=== PATIENT | female | born 1950 | race Caucasian/White ===

== ENCOUNTER 2022-10-03 08:50 | Outpatient (OUT) | payer MEDICARE, OTHER, SELFPAY ==
--- NOTE | 2022-10-03 08:47 | XR_ITS ---
The [address] [address] Patient Name: SIA ALEXANDER MRN: [id number] date: 1950 Sex: F Assigned Patient Location: [facility] Current Patient Location: [facility] Accession/Order Number: [id number] Exam Date: 10/03/2022 08:55 Report Date: 10/03/2022 11:16 At the request of: BASHIR DANIELLE Procedure: XR foot RT min 3V PROCEDURE: XR foot RT min 3V DATE: 10/03/2022 7:55 AM CDT COMPARISONS: 06/27/2022 CLINICAL INDICATION: RIGHT FOOT PAIN FINDINGS: There is no evidence of fractures or other acute osseous abnormalities. There is evidence of what appears to be complete healing of the fifth proximal metatarsal fracture. A pin again longitudinally traverses this healed fracture site. There is moderate first metatarsal phalangeal degenerative change. There are small spur off the posterior inferior os calcis. There is small spur off the posterior os calcis at the attachment of the Achilles. These findings are stable. XR/XR foot RT min 3V IMPRESSION: Stable postop changes. There is evidence on today's images that suggest the surgically fixed proximal fifth metatarsal fracture is completely healed. . No evidence of acute osseous abnormalities. Electronically authenticated by: PLACIDO LUNA Date: 10/03/2022 11:16
== END 2022-10-03 08:51 | disposition home or self-care (01) ==
LOC: RAD 08:50
PROVIDERS: PCP Internal Medicine; Visit Provider Podiatrist Foot & Ankle Surgery
DX: S92.351D Displaced fracture of fifth metatarsal bone, right foot, subsequent encounter for fracture with routine healing (principal)
CPT/HCPCS: 73630

== ENCOUNTER 2022-10-09 06:41 | Outpatient (OUT) | payer MEDICARE, OTHER, SELFPAY ==
--- NOTE | 2022-10-09 06:47 | MR_ITS ---
The [address] [address] Patient Name: SIA ALEXANDER MRN: [id number] date: 1950 Sex: F Assigned Patient Location: MRI Current Patient Location: MRI Accession/Order Number: [id number] Exam Date: 10/09/2022 07:00 Report Date: 10/09/2022 11:20 At the request of: BASHIR DANIELLE Procedure: MR ankle RT wo con MR ankle RT wo con CLINICAL HISTORY: Chronic right foot pain after prior fracture. Peroneal Tendonitis COMPARISON: 10/03/2022. MR TECHNIQUE: Multiplanar multiecho MRI of the right ankle, hindfoot, midfoot is obtained without IV contrast with axial, sagittal, coronal images. T1 weighted and fluid sensitive images are included. FINDINGS: No fracture or dislocation throughout the [id number] except for susceptibility artifact over the fifth metatarsal related to remote internal fixation. Soft tissues unremarkable. Talar dome and tibial plafond are intact. Mild degenerative change of the talonavicular joint. Achilles tendon is intact and normal thickness. Ankle flexor and extensor tendons are intact. Trace PTT tenosynovial fluid. Peroneal tendons appear intact although with trace tenosynovitis. Low intermediate grade partial-thickness injury at the talar attachment of the ATFL. CFL is intact. The ATFL is intact. Syndesmotic ligaments are intact. Deltoid ligaments are intact except for remote low-grade partial injury to the deep deltoid with tiny internal calcification. Plantar fascial is intact and normal thickness. Plantar foot muscles with mild diffuse atrophy but no significant edema. MR/MR ankle RT wo con IMPRESSION: Remote low-grade immediate grade partial thickness injury at the ATFL and deep deltoid. Peroneal tendons are intact with mild tenosynovitis. Also trace PTT tenosynovitis. Mild iterative change of the talonavicular joint. No acute bony process. Remote internal fixation at the fifth metatarsal with associated susceptibility artifact. Electronically authenticated by: АНДРЕЙ SANTOS Date: 10/09/2022 11:20
== END 2022-10-09 06:42 | disposition home or self-care (01) ==
LOC: MRI 06:42
PROVIDERS: PCP Internal Medicine; Visit Provider Podiatrist Foot & Ankle Surgery
DX: M76.71 Peroneal tendinitis, right leg (principal); M76.821 Posterior tibial tendinitis, right leg; S93.431A Sprain of tibiofibular ligament of right ankle, initial encounter; S93.421A Sprain of deltoid ligament of right ankle, initial encounter; Z96.7 Presence of other bone and tendon implants; M25.9 Joint disorder, unspecified; X58.XXXA Exposure to other specified factors, initial encounter
CPT/HCPCS: 73721

== ENCOUNTER 2022-10-31 07:47 | Outpatient (RCR) | payer MEDICARE, OTHER, SELFPAY | END 2022-12-14 16:26 | disposition home or self-care (01) | LOC: PT 07:47 | PROVIDERS: PCP Internal Medicine; Visit Provider Podiatrist Foot & Ankle Surgery | DX: S92.351D Displaced fracture of fifth metatarsal bone, right foot, subsequent encounter for fracture with routine healing (principal); M25.571 Pain in right ankle and joints of right foot | CPT/HCPCS: 97010; 97110; 97112; 97140; 97162; 97530; G0283 ==

== ENCOUNTER 2022-12-23 21:14 | Emergency (ER) | payer MEDICARE, OTHER, SELFPAY ==
[2022-12-23 21:27] VITALS: BP 148/84; PULSE 90; RESP 18; TEMP 36.7; O2SAT 99; BMI 20.3
--- NOTE | 2022-12-23 22:20 | XR_ITS ---
The [address] [address] Patient Name: SIA ALEXANDER MRN: [id number] date: 1950 Sex: F Assigned Patient Location: ER Current Patient Location: ER Accession/Order Number: [id number] Exam Date: 12/23/2022 22:30 Report Date: 12/23/2022 22:57 At the request of: MICA WONG Procedure: XR chest 1V EXAMINATION: XR chest 1V HISTORY: Cough COMPARISON: None. TECHNIQUE: Portable chest FINDINGS: The lung parenchyma is free of consolidation or infiltrate. No pneumothorax or pleural effusion. The cardiac, mediastinal and hilar contours are normal. The visualized osseous structures exhibit no gross abnormality. XR/XR chest 1V IMPRESSION: No acute cardiopulmonary abnormality. Electronically authenticated by: CAMPOS TREADWELL Date: 12/23/2022 22:57
--- NOTE | 2022-12-23 22:20 | ED.URI1 ---
HPI - URI/Sore Throat General Chief Complaint: Upper Respiratory Infection Stated Complaint: ALLERGIES Time Seen by Provider: 12/23/22 21:55 History of Present Illness HPI Narrative: 72-year-old female presents for a cough that she's had for a few months. She's been on prednisone twice, prescribed by her PCP, and it seemed to help. She was also on Zithromax twice. She has not had a fever or hemoptysis and her cough is nonproductive. She is on Lotensin for blood pressure. Related Data Home Medications Medication Instructions Recorded Confirmed albuterol sulfate 90 mcg/actuation inhalation 12/23/22 aerosol inhaler atorvastatin 10 mg tablet mg 12/23/22 benazepril 10 mg tablet mg 12/23/22 famotidine 20 mg tablet mg 12/23/22 fluticasone furoate 200 inhalation 12/23/22 mcg-vilanterol 25 mcg/dose inhalation powder (Breo Ellipta) levothyroxine 100 mcg tablet mcg 12/23/22 loratadine 5 mg-pseudoephedrine ER tab PO 12/23/22 120 mg tablet,extended release,12hr (Claritin-D 12 Hour) pantoprazole 40 mg tablet,delayed mg PO 12/23/22 release Allergies Allergy/AdvReac Type Severity Reaction Status Date / Time amoxicillin Allergy Verified 12/23/22 21:31 Sulfa (Sulfonamide Allergy Verified 12/23/22 21:31 Antibiotics) IVP Allergy Uncoded 12/23/22 21:31 Review of Systems ROS Narrative A ten point review of systems is negative except as noted above. PFSH PFS Social History Smoking status: Never smoker Exam Narrative Exam Narrative: Nurses note and vital signs reviewed and patient is not hypoxic. General: The patient appears well and in no apparent distress. Patient is resting comfortably on cart. her voice is slightly hoarse. Skin: Warm, dry, no pallor noted. There is no rash noted. Head: Normocephalic, atraumatic Eye: Normal conjunctiva, no drainage Ears, Nose, Mouth, and Throat: oral mucosa is moist. Nares patent. Mouth without vesicles. no pharyngeal erythema or exudate Cardiovascular: Regular Rate and Rhythm Respiratory: Patient is in no distress, no accessory muscle use, lungs are clear to auscultation, no wheezing, rales or rhonchi Back: non-tender GI: soft and nontender Musculoskeletal: The patient has no evidence of calf tenderness, no pitting edema, symmetrical pulses noted bilaterally Neurological: A&O, normal speech Psychiatric: Cooperative Constitutional Vital Signs, click to edit/add: Last Vital Signs Temp 98.0 F 12/23/22 21:27 Pulse 90 12/23/22 21:27 Resp 18 12/23/22 21:27 BP 148/84 H 12/23/22 21:27 Pulse Ox 99 12/23/22 21:27 O2 Del Method Room Air 12/23/22 21:27 Course Vital Signs Vital signs: Vital Signs Temperature 98.0 F 12/23/22 21:27 Pulse Rate 90 12/23/22 21:27 Respiratory Rate 18 12/23/22 21:27 Blood Pressure 148/84 H 12/23/22 21:27 Pulse Oximetry 99 12/23/22 21:27 Oxygen Delivery Method Room Air 12/23/22 21:27 Temperature 98.0 F 12/23/22 21:27 Pulse Rate 90 12/23/22 21:27 Respiratory Rate 18 12/23/22 21:27 Blood Pressure 148/84 H 12/23/22 21:27 Pulse Oximetry 99 12/23/22 21:27 Oxygen Delivery Method Room Air 12/23/22 21:27 MDM - URI/Sore Throat MDM Narrative Medical decision making narrative: the patient has had this cough for months my clinical impression is that it's due to the LUIS ALBERTO inhibitor, benazepril, that she has been on. She has done some reading and actually stop that medication about four days ago. Her blood pressure has been checked at home and it's been normal. She is very frustrated with the situation and feels like her PCP is not listening to her. She is being referred to cardiology for follow-up regarding her blood pressure. Treatment diagnosis and follow-up were discussed with the patient. Differential Diagnosis Differential diagnosis: Likely upper respiratory infection and other (medication side effect) Imaging Data Chest x-ray: Radiologist's impression: Procedure: XR chest 1V EXAMINATION: XR chest 1V HISTORY: Cough COMPARISON: None. TECHNIQUE: Portable chest FINDINGS: The lung parenchyma is free of consolidation or infiltrate. No pneumothorax or pleural effusion. The cardiac, mediastinal and hilar contours are normal. The visualized osseous structures exhibit no gross abnormality. IMPRESSION: No acute cardiopulmonary abnormality. Electronically authenticated by: CAMPOS TREADWELL Date: 12/23/2022 22:57 Discharge Plan Discharge Chief Complaint: Upper Respiratory Infection Clinical Impression: Chronic cough, LUIS ALBERTO-inhibitor cough Patient Disposition: Home, Self-Care Time of Disposition Decision: 23:12 Condition: Good Mode of Transportation: Private Vehicle Prescriptions / Home Meds: No Action atorvastatin 10 mg tablet levothyroxine 100 mcg tablet famotidine 20 mg tablet pantoprazole 40 mg tablet,delayed release (DR/EC) PO Claritin-D 12 Hour 5-120 mg tablet extended release 12 hr PO albuterol sulfate 90 mcg/actuation HFA aerosol inhaler INHALATION benazepril 10 mg tablet fluticasone furoate-vilanterol [Breo Ellipta] 200-25 mcg/dose blister with device INHALATION Instructions: Acetaminophen (By mouth), Chronic Cough (ED) Additional Instructions: F/U with Dr Inman Stand Alone Forms: Portal Instructions Referrals: Andrea Wu DO [Primary Care Provider] - 1 week
[2022-12-23] MEDS: DEXAMETHASONE SODIUM PHOSPHATE 10 MG/ML VIAL IM (23:25)
== END 2022-12-23 23:29 | disposition home or self-care (01) ==
PROVIDERS: Emergency Provider Emergency Medicine; PCP Internal Medicine
DX: R05.3 Chronic cough (principal); T46.5X5A Adverse effect of other antihypertensive drugs, initial encounter; Z79.899 Other long term (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 therapy
CPT/HCPCS: 71045; 96372; 99284; J1100

== ENCOUNTER 2023-01-30 06:46 | Outpatient (OUT) | payer MEDICARE, OTHER, SELFPAY ==
--- NOTE | 2023-01-30 | MM_ITS ---
Patient Name: SIA ALEXANDER MR#: [id number] : 1950 Exam Date: 01/30/2023 Ordering Doctor: DR Andrea Wu D.O. RADIOLOGY REPORT PROCEDURE: MM TOMOSYNTHESIS SCREENING BI COMPARISON: MG MAMM SCREEN 3D ALLEGRA CAD, 01/25/2021. MG MAMM SCREEN 3D ALLEGRA CAD, 01/29/2022. INDICATIONS: Screening mammography Calculator Name NCI Breast Cancer Risk Assessment Tool 5 Year Breast Cancer Risk 6.50% Lifetime Breast Cancer Risk 18.00% Personal Breast Cancer No Personal Ovarian Cancer No Treatments None Family Cancers Sister with breast cancer at age 42; Aunt-maternal with breast cancer at age 38; Aunt-maternal with breast cancer at age ~55; Aunt-maternal with breast cancer at age ~56; Mother with pancreatic cancer at age 52; Sister with breast cancer at age 59. LOCATION: [facility] BREAST COMPOSITION: Scattered areas fibroglandular density. FINDINGS: DIAGNOSTIC CATEGORY 2--BENIGN FINDING. NO CHANGE FROM COMPARISON. Scattered benign-appearing calcifications are present. Scattered benign-appearing lymph nodes are present. RIGHT BREAST: No significant suspicious finding. LEFT BREAST: No significant suspicious finding. RECOMMENDATIONS: ROUTINE MAMMOGRAM AND CLINICAL EVALUATION IN 12 MONTHS. PLEASE NOTE: A NORMAL MAMMOGRAM DOES NOT EXCLUDE THE POSSIBILITY OF BREAST CANCER. A CLINICALLY SUSPICIOUS PALPABLE LUMP SHOULD BE BIOPSIED. Dictated by: Chepe Erazo MD on 01/30/2023 at 10:01 Approved by: Chepe Erazo MD on 01/30/2023 at 10:09
[2023-01-30 06:58] LABS: Basophils Percent Auto 0.5 % (0.2-2.0); Eosinophils Absolute Auto 0.5 10^3/uL (0.0-0.7); Eosinophils Percent Auto 5.5 % (0.9-7.0); Hematocrit 32.9 % (36.0-48.0); Immature Granulocytes Abs Auto 0.03 10^3/uL (0.00-0.03); Immature Granulocytes Pct Auto 0.4 % (0.0-0.5); Lymphocytes Percent Auto 24.1 % (20.5-60.0); Mean Corpuscular HGB Conc 30.4 g/dL (29.9-35.2); Mean Corpuscular Hemoglobin 25.3 pg (26.7-34.0); Mean Corpuscular Volume 83.1 fL (81.0-99.0); Mean Platelet Volume 9.3 fL (9.5-13.5); Monocytes Absolute Auto 0.8 10^3/uL (0.3-0.8); Monocytes Percent Auto 9.5 % (1.7-12.0); Platelet Count 383 10^3/uL (150-450); Red Blood Count 3.96 10^6/uL (4.20-5.40); Red Cell Distribution Width 15.4 % (11.0-15.0); White Blood Count 8.3 10^3/uL (4.0-11.0)
[2023-01-30 08:17] LABS: Alanine Aminotransferase 22 U/L (14-59); Anion Gap 11.9; BUN Creatinine Ratio 23.8; Carbon Dioxide 30.7 mmol/L (21.0-32.0); Chloride 104 mmol/L (98-107); Chol HDL Ratio 2.8; Cholesterol 169 mg/dL (<=200); Estimated GFR (African America >60 (>=60); Estimated GFR (Non-African Ame >60 (>=60); Glucose 87 mg/dL (74-106); HDL Cholesterol 60 mg/dL (40-60); LDL Cholesterol Calculated 88.4 mg/dL; Potassium 3.6 mmol/L (3.5-5.1); Sodium 143 mmol/L (136-145); Thyroid Stimulating Hormone 1.123 uIU/mL (0.358-3.740); Triglycerides 103 mg/dL (<=150); VLDL CHOLESTEROL 20.6 mg/dL
== END 2023-01-30 06:47 | disposition home or self-care (01) ==
LOC: MAMMO 06:46
PROVIDERS: PCP Internal Medicine; Visit Provider Internal Medicine
DX: Z12.31 Encounter for screening mammogram for malignant neoplasm of breast (principal); Z78.0 Asymptomatic menopausal state; I10 Essential (primary) hypertension; Z80.3 Family history of malignant neoplasm of breast; Z80.8 Family history of malignant neoplasm of other organs or systems
CPT/HCPCS: 36415; 77063; 77067; 80048; 80061; 82306; 84443; 84460; 85025

== ENCOUNTER 2023-02-05 07:52 | Outpatient (OUT) | payer MEDICARE, OTHER, SELFPAY ==
--- NOTE | 2023-02-05 07:55 | XR_ITS ---
[address] [address] Patient Name: SIA ALEXANDER MRN: [id number] date: 1950 Sex: F Assigned Patient Location: [facility] Current Patient Location: RAD Accession/Order Number: [id number] Exam Date: 02/05/2023 08:00 Report Date: 02/05/2023 08:40 At the request of: CHUNG GOLDEN Procedure: XR DEXA axial skeleton EXAMINATION: XR DEXA axial skeleton HISTORY: Menopause Z78.0 COMPARISON: DEXA bone densitometry 01/25/2021 TECHNIQUE: Dual-energy X-ray absorptiometry (DXA) was performed. FINDINGS: SPINE ANALYSIS: Average bone mineral density is 1.092 g/cm2. T-score (standard deviation relative to young adult mean): -0.7 . +3.7% change since prior study. HIP ANALYSIS: Lowest bone mineral density is within the left femoral neck, 0.844 g/cm2. T-score (standard deviation relative to young adult mean): -1.4 . +3.3% change since prior study. XR/XR DEXA axial skeleton IMPRESSION: World [employer] Classification: Osteopenia - Moderate Fracture Risk Electronically authenticated by: JEROME ESPINOSA Date: 02/05/2023 08:40
== END 2023-02-05 07:53 | disposition home or self-care (01) ==
LOC: RAD 07:52
PROVIDERS: PCP Internal Medicine; Visit Provider Internal Medicine
DX: Z78.0 Asymptomatic menopausal state (principal); M85.80 Other specified disorders of bone density and structure, unspecified site
CPT/HCPCS: 77080

== ENCOUNTER 2023-03-08 06:30 | Outpatient (OUT) | payer MEDICARE, OTHER, SELFPAY ==
--- OUTSIDE RECORDS SUMMARY | 2023-03-08 06:33 | XMS_ITS | CCD ---
Author Name Unknown Address [address] [place] [address] Organization [facility] Care Team Providers Care Type Disk Quality Control Supervisor Name Role Phone Espinoza Botello Unavailable ANDREA WU Primary Care Physician [phone] Andrea Wu Unavailable Luma Chirinos Unavailable PABLO, DR CAMPOS Nixon Consulting Unavailable BRYCE, DR WILKES Primary Care Unavailable KIKI CROWELL Attending Unavailable KIKI CROWELL Admitting Unavailable KIKI CROWELL Consulting Unavailable JESÚS, DR JEROME Winkler Consulting Unavailable AZUCENA ., DR MONZON Attending Unavailable HAY ., DR MONZON Admitting Unavailable BALL, DR WILKES Primary Care Unavailable AZUCENA ., DR MONZON Consulting Unavailable ESPINOZA BOTELLO Consulting Unavailable BASHIR DANIELLE Consulting Unavailable BRYCE, DR WILKES Primary Care Unavailable BASHIR DANIELLE Attending Unavailable BASHIR DANIELLE Admitting Unavailable MARGARITO MAS Consulting Unavailable JESÚS, DR JEROME Winkler Consulting Unavailable BRYCE, DR WILKES Primary Care Unavailable BASHIR DANIELLE Attending Unavailable BASHIR DANIELLE Admitting Unavailable BASHIR DANIELLE Consulting Unavailable GILBERT DUKE Consulting Unavailable SYED PAZ Consulting Unavailable RILEY HURTADO Consulting Unavailable JESÚS, DR JEROME Winkler Consulting Unavailable BRYCE, DR WILKES Primary Care Unavailable BASHIR DANIELLE Attending Unavailable BASHIR DANIELLE Admitting Unavailable BASHIR DANIELLE Consulting Unavailable BRYCE, DR WILKES Consulting Unavailable ESPINOZA BOTELLO Primary Care Unavailable BRYCE, DR WILKES Attending Unavailable BRYCE, DR WILKES Admitting Unavailable YOVANA COTTRELL Consulting Unavailable BRYCE, DR WILKES Consulting Unavailable BRYCE, DR WILKES Primary Care Unavailable BRYCE, DR WILKES Attending Unavailable BRYCE, DR WILKES Admitting Unavailable PABLO, DR CAMPOS Nixon Consulting Unavailable BRYCE, DR WILKES Primary Care Unavailable KIKI CROWELL Attending Unavailable KIKI CROWELL Admitting Unavailable JESÚS, DR JEROME Winkler Consulting Unavailable BRYCE, DR WILKES Primary Care Unavailable BASHIR DANIELLE Attending Unavailable BASHIR DANIELLE Admitting Unavailable BASHIR DANIELLE Consulting Unavailable DR JEROME ESPINOSA Consulting Unavailable BRYCE, DR WILKES Primary Care Unavailable KIKI CROWELL Attending Unavailable KIKI CROWELL Admitting Unavailable KIKI CROWELL Consulting Unavailable WebsterShannan mcdonough Unavailable Asuncion Buchanan Attending Unavailable Asuncion Buchanan Attending Unavailable Asuncion Buchanan Attending Unavailable Allergies Allergy Classification Reported Allergen(s) Allergy Type Date of Onset Reaction(s) Facility (19 sources) Amoxicillin Drug Allergy 10-22-19 19 Rash [facility] (18 sources) Sulfacetamide / Sulfur Drug Allergy Unknown [employer] [facility] [employer] Other (18 sources) idp dye Propensity to adverse reactions Unknown [facility] [employer] Other (1 source) Sulfonamides (Antibiotic) Allergy to substance 10-22-19 19 Unknown Reaction [facility] (1 source) wasp venom Allergy to substance 10-22-19 19 Anaphylaxis [facility] (1 source) bee venom protein (honey bee) Allergy to substance 10-22-19 19 Anaphylaxis [facility] (1 source) Iodinated Contrast Media Allergy to substance 10-22-19 19 Anaphylaxis [facility] (3 sources) Bee/Wasp/Ant venom; Translations: [Bee Stings] Drug allergy Dyspnea (finding), Weal (disorder) [facility] (3 sources) Contrast media; Translations: [contrast media (iodine-based)] Drug allergy Dyspnea (finding), Weal (disorder) [facility] (12 sources) Iodine; Translations: [iodine] Drug Allergy Unknown (qualifier value) [facility] (3 sources) Penicillin; Translations: [penicillin] Drug Allergy Eruption of skin (disorder) [facility] (3 sources) Sulfonamides (Antibiotic); Translations: [sulfa drugs] Drug allergy Angioedema (disorder) [facility] (1 source) bee venom Drug allergy (disorder) [facility] (1 source) Iodine (And Iodine Containting Drugs) Drug allergy (disorder) 01-19-20 15 [facility] (1 source) Penicillins Drug allergy (disorder) [facility] (1 source) Sulfonamides (Antibiotic) Drug allergy (disorder) 03-18-18 56 [facility] (2 sources) Iodine / Sodium Iodide Drug Allergy Unknown [employer] [employer] Other (11 sources) Substance with penicillin structure and antibacterial mechanism of action (substance) Drug allergy Unknown [facility] Other (11 sources) Substance with sulfonamide structure and antibacterial mechanism of action (substance) Drug allergy Unknown [facility] Other (2 sources) Allergies Reconciled Propensity to adverse reactions Unknown [facility] Other (2 sources) patient allergy list reviewed by nurse or physicia Propensity to adverse reactions 09-25-19 Comment:Done [facility] Other Medications Current Medications Medication Drug Class(es) Dates Sig (Normalized) Sig (Original) 0.4 ML cyclosporine 0.5 MG/ML Ophthalmic Suspension [Restasis] (1 source) Start: 09-04-2019 take 1 drop(s) into the eye(s) twice daily Restasis 0.05% ophthalmic emulsion 1 drop(s), Eye-Both, BID, Refill(s) 0 Start Date: 09/04/19 Status: Ordered 30 ACTUAT fluticasone furoate 0.2 MG/ACTUAT / umeclidinium 0.0625 MG/ACTUAT / vilanterol 0.025 MG/ACTUAT Dry Powder Inhaler [Trelegy] (1 source) Start: 02-18-2023 take 1 puff(s) by inhalation once daily Trelegy Ellipta 200-62.5-25 MCG/ACT 1 puff Inhalation Once a day for 30 days Feb, Active acetaminophen 250 mg / aspirin 250 mg / caffeine 65 mg oral tablet (1 source) Platelet Aggregation Inhibitor, Nonsteroidal Anti-inflammatory Drug, Central Nervous System Stimulant, Methylxanthine Start: 10-21-2018 Aspirin-Acetamin ophen-Caffeine (Pain-Off) 250-250-65 mg Tablet Active 2 TAB PO As Directed October 21, 2018 12:00am [id number] 200 actuat albuterol 0.09 mg/actuat metered dose inhaler (6 sources) beta2-Adrenergic Agonist Start: 09-02-2019 take 2 puff(s) by inhalation every four hours ProAir HFA 90 mcg/inh inhalation aerosol 2 puff(s), Inhalation, q4hr Shortness of breath or wheezing, Refill(s) 0 Start Date: 09/02/19 Status: Ordered Start: 10-21-2018 Albuterol Sulf ate Active 2 PUFF INHALATION As Directed October 21, 2018 12:00am Albuterol Sulfat e HFA 108 (90 Base) MCG/ACT USE 2 INHALATIONS ORALLY EVERY 4 HOURS NEEDED FORCOUGH OR SHORTNESS OF BREATH for 90 Active take 2 puff(s) by in halation every four hours as needed ProAir HFA 108 (90 Base) MCG/ACT 2 puffs as needed Inhalation every 4 hrs Active alendronic acid 70 mg oral tablet (20 sources) Bisphosphonate Start: 10-21-2018 take 1 tablet by mouth every week Fosamax 70 mg Tab 70 mg = 1 tab(s), Oral, qWeek, Refills(s) 0 Start Date: 09/02/19 Status: Ordered take 1 tablet by mouth once carolyn y Alendronate Sodium 70 MG 1 tablet 30 minutes before the first food, beverage or medicine of the day with plain water Orally weekly for 90 days Active amLODIPine 5 mg oral tablet (9 sources) Dihydropyridine Calcium Channel Bebe Start: 02-20-2023 amLODIPine 5 mg Tab Refills(s) 0 Start Date: 02/20/23 Status: Ordered aspirin 770 mg / caffeine 60 mg / orphenadrine citrate 50 mg oral tablet (1 source) Platelet Aggregation Inhibitor, Nonsteroidal Anti-inflammatory Drug, Muscle Relaxant, Central Nervous System Stimulant, Methylxanthine Start: 10-21-2018 take 0.5 tablet by mouth four times daily Orphenadrine-Asa- Caffeine Active 0.5 TAB PO Four times daily October 21, 2018 12:00am Astepro 205.5 MCG/SPRAY (1 source) Start: 02-18-2023 take 2 spray(s) nasal route twice daily Astepro 205.5 MCG/SPRAY 2 sprays in each nostril Nasally bid for 30 days Feb, Active atorvastatin 10 mg oral tablet (20 sources) HMG-CoA Reductase Inhibitor Start: 10-21-2018 take 1 tablet by mouth once daily atorvastatin 10 mg Tab 10 mg = 1 tab(s), Oral, Daily, Refills(s) 0 Start Date: 09/02/19 Status: Ordered azelastine hydrochloride 0.206 mg/actuat metered dose nasal spray (2 sources) Histamine-1 Receptor Antagonist Start: 02-18-2023 take 2 spray(s) nasal route twice daily Astepro 205.5 MCG/SPRAY 2 sprays in each nostril Nasally bid for 30 days Feb, Active benazepril hydrochloride 10 mg oral tablet (12 sources) Angiotensin Converting Enzyme Inhibitor Start: 10-21-2018 take 1 tablet by mouth once daily benazepril 10 mg Tab 10 mg = 1 tab(s), Oral, Daily, Refills(s) 0 Start Date: 09/02/19 Status: Ordered Breo Ellipta 200 mcg-25 mcg/inh inhalation powder (1 source) Start: 09-02-2019 take 1 puff(s) by inhalation once daily Breo Ellipta 200 mcg-25 mcg/inh inhalation powder 1 puff(s), Inhalation, Daily, Refill(s) 0 Start Date: 09/02/19 Status: Ordered calcium carbonate 600 mg chewable tablet (3 sources) Start: 09-04-2019 take 1 tablet by mouth three times daily calcium carbonate 600 mg oral tablet, chewable 600 mg = 1 tab(s), Chewed, TID, Refills(s) 0 Start Date: 09/04/19 Status: Ordered Start: 10-21-2018 Calcium Carbon ate (Tums) 300 mg (750 mg) Tablet,Chewable Active 2 TAB PO As Directed October 21, 2018 12:00am Start: 10-21-2018 take 1 tablet by grzegorz th three times daily Calcium Carbonate (Calcium 500) 500 mg calcium (1,250 mg) Tablet,Chewable Active 500 MG PO Three times daily October 21, 2018 12:00am codeine phosphate 2 mg/ml / guaiFENesin 20 mg/ml oral solution (8 sources) Opioid Agonist Start: 02-25-2023 take 10 mL by mouth every six hours as needed for cough guaiFENesin-Codeine 100-10 MG/5ML 10 mL Orally every 6 hours as needed for cough for 7 days Feb, Active Start: 12-26-2022 take 10 mL by mouth every six hours as needed for cough guaiFENesin-Codeine 100-10 MG/5ML 10 mL Orally every 6 hours as needed for cough for 10 days Dec, Not-Taking cycloSPORINE 0.5 mg/ml ophthalmic suspension (19 sources) Calcineurin Inhibitor Immunosuppressant Start: 10-21-2018 take 1 drop(s) into the eye(s) twice daily Cyclosporine (Restasis) 0.05 % Dropperette Active 1 DROPS OPHTHALMIC Twice daily October 21, 2018 12:00am take 1 drop(s) into the eye(s) twice daily Restasis 0.05 % 1 drop into affected eye Ophthalmic Twice a day Active Epipen (20 sources) alpha-Adrenergic Agonist, beta-Adrenergic Agonist, Catecholamine Start: 09-04-2019 inject 0.3 mg by intramuscular injection once EpiPen 2-Giovani 0.3 mg, IntraMuscular, Once, Refills(s) 0 Start Date: 09/04/19 Status: Ordered EPINEPHrine 0.3 MG/0.3ML Injection Active EPINEPHrine 0.3 MG/0.3ML Injection Active estradiol 0.1 mg/ml vaginal cream (4 sources) Estrogen Start: 02-20-2023 estradiol 0.1 mg/g Vag Crm See Instructions, 42.5 gm, Refill(s) 0, apply pea sized amount to urethra 2x/wk, [facility], 158, cm, 02/20/23 8:48:00 EST, Height/Length Dosing, 68.5, kg, 02/20/23 8:48:00 EST, Weight Dosing Start Date: 02/20/23 Status: Ordered Start: 04-13-2021 estradiol 0.1 mg/g vaginal cream See Instructions, Apply pea sized amount to external urethral 3 times a week for 2 weeks (at bedtime), then twice a week after for maintenance, # 42.5 gm, Refills(s) 1, [facility] [address], [address], cm, 04/13/21 9:47:00 EST, Height/Length Do... Start Date: 04/13/21 Status: Ordered Start: 10-21-2018 End: 10-21-2018 Estradiol (Yuvafem) 10 mcg T ablet Active 10 MCG TABLET Twice a Week October 21, 2018 12:00am famotidine 20 mg oral tablet (9 sources) Histamine-2 Receptor Antagonist Start: 02-20-2023 take 1 mg by mouth twice daily famotidine 20 mg Tab mg tab(s), Oral, BID, Refills(s) 0 Start Date: 02/20/23 Status: Ordered take 1 tablet by grzegorz th once daily at bedtime Famotidine 20 MG TAKE 1 TABLET AT BEDTIM E Orally Once a day for 90 days Active fluticasone propionate 0.05 mg/actuat metered dose nasal spray (20 sources) Corticosteroid Start: 09-02-2019 fluticasone 0. 05 mg/inh Nasal [place] 2 spray(s), Nasal, Daily, Refill(s) 0 Start Date: 09/02/19 Status: Ordered Start: 10-21-2018 Fluticasone Pr opionate Active 2 SPRAY INTRANASAL Daily October 21, 2018 12:00am take 2 spray(s) nasa l route once daily Fluticasone Propionate 50 MCG/ACT 2 sprays each nostril) Nasally Once a day Active take 2 spray(s) nasa l route once daily Fluticasone Propionate 50 MCG/ACT 2 sprays each nostril) Nasally Once a day Active Fluticasone Prop ionate Active 30 actuat fluticasone furoate 0.1 mg/actuat / umeclidinium 0.0625 mg/actuat / vilanterol 0.025 mg/actuat dry powder inhaler (2 sources) Anticholinergic, Corticosteroid, beta2-Adrenergic Agonist Start: 02-25-2023 take 1 puff(s) by inhalation once daily Trelegy Ellipta 100-62.5-25 MCG/ACT 1 puff Inhalation Once a day for 90 days Feb, Active Fluticasone Furoate-Vilanterol (19 sources) Corticosteroid, beta2-Adrenergic Agonist Start: 10-21-2018 take 1 puff(s) by inhalation once daily Fluticasone Furoate-Vilanter ol (Breo Ellipta) 200-25 mcg/dose blister with device Active 1 PUFF INHALATION Daily October 21, 2018 12:00am Breo Ellipta 200 -25 MCG/ACT USE 1 INHALATION ORALLY DAILY Inhalation Once a day for 90 days Active take 1 puff(s) by inhalation onc e daily Breo Ellipta 100-25 MCG/ACT 1 puff Inhalation Once a day for 90 days Active take 1 puff(s) by inhalation onc e daily BREO ELLIPTA 200/25 mcg 1 puff Inhalation daily Active fluticasone 0.05 mg/inh Nasal [place] (1 source) Start: 09-02-2019 fluticasone 0.05 mg/inh Nasal [place] 2 spray(s), Nasal, Daily, Refill(s) 0 Start Date: 09/02/19 Status: Ordered LORazepam 0.5 mg oral tablet (8 sources) Benzodiazepine Start: 01-25-2023 LORazepam 0.5 MG 1/2 - 1 Orally Once a day as needed for anxiety for 30 days Jan, Active 24 hr mirabegron 50 mg extended release oral tablet (1 source) beta3-Adrenergic Agonist Start: 12-01-2021 take 1 tablet by mouth once daily Myrbetriq 50 mg oral tablet, extended release 50 mg = 1 tab(s), Oral, Daily, # 30 tab(s), Refills(s) 6, [id number], 158, cm, 12/01/21 9:55:00 EDT, Height/Length Dosing, 68, kg, 12/01/21 9:55:00 EDT, Weight Dosing Start Date: 12/01/21 Status: Ordered montelukast 10 mg oral tablet (8 sources) Leukotriene Receptor Antagonist Start: 12-26-2022 take 1 tablet by mouth every twenty-four hours Montelukast Sodium 10 MG 1 tablet Orally Once a day Dec, Active nabumetone 750 mg oral tablet (1 source) Nonsteroidal Anti-inflammatory Drug Start: 10-21-2018 take 1500 mg by mouth once daily Nabumetone Active 1500 MG PO Daily October 21, 2018 12:00am omeprazole 40 mg delayed release oral capsule (20 sources) Proton Pump Inhibitor Start: 10-21-2018 take 1 capsule by mouth once daily omeprazole 40 mg Cap-DR 40 mg = 1 cap(s), Oral, Daily, Refills(s) 0 Start Date: 09/02/19 Status: Ordered pain off aspirin (1 source) Start: 04-13-2021 pain off aspirin pain off aspirin Start Date: 04/13/21 Status: Ordered pantoprazole 40 mg delayed release oral tablet (13 sources) Proton Pump Inhibitor Start: 12-11-2019 take 1 tablet by mouth once daily Pantoprazole [address] Tab 40 mg = 1 tab(s), Oral, Daily, # 90 tab(s), Refills(s) 1, Pharmacy: [id number] [facility], 154.9, cm, 12/11/19 9:26:00 EDT, Height/Length Dosing, 70.2, kg, 12/11/19 9:26:00 EDT, Weight Dosing Start Date: 12/11/19 Status: Ordered predniSONE 20 mg oral tablet (20 sources) Start: 12-12-2022 predniSONE 20 MG 1 tablet Orally tid w/ food x 3 days then bid w/ food x 3 days then qd w/ food x 3 days for 9 days Feb, Active Start: 11-01-2022 take 1 tablet by grzegorz th every twelve hours prednisone 20 MG 1 tablet Orally BID for 5 Oct, Not-Taking/PRN ProAir HFA 108 (90 Base) MCG/ACT (16 sources) take 2 puff(s) by in halation every four hours as needed for cough ProAir HFA 108 (90 Base) MCG/ACT 2 puffs as needed Inhalation every 4 hrs as needed for cough, SOB Active take 2 puff(s) by in halation every four hours as needed for cough ProAir HFA 108 (90 Base) MCG/ACT 2 puffs as needed Inhalation every 4 hrs as needed for cough, SOB for 90 days Active take 2 puff(s) by in halation every four hours as needed ProAir HFA 108 (90 Base) MCG/ACT 2 puffs as needed Inhalation every 4 hrs Active ProAir HFA 90 mcg/inh inhalation aerosol (1 source) Start: 09-02-2019 take 2 puff(s) by inhalation every four hours ProAir HFA 90 mcg/inh inhalation aerosol 2 puff(s), Inhalation, q4hr Shortness of breath or wheezing, Refill(s) 0 Start Date: 09/02/19 Status: Ordered psyllium 520 mg oral capsule (1 source) Start: 10-21-2018 Psyllium Husk (Metamucil) 0.52 gram Capsule Active 1 CAP PO Twice daily October 21, 2018 12:00am Trelegy Ellipta 200 mcg-62.5 mcg-25 mcg/inh inhalation powder (1 source) Start: 02-20-2023 take 1 puff(s) by inhalation once daily Trelegy Ellipta 200 mcg-62.5 mcg-25 mcg/inh inhalation powder puff(s), Inhalation, Daily, Refill(s) 0 Start Date: 02/20/23 Status: Ordered trelegy ellipta 200-62.5-25 mcg/act aerosol powder breath activated (2 sources) Start: 02-18-2023 take 1 puff(s) by inhalation once daily Trelegy Ellipta 200-62.5-25 MCG/ACT 1 puff Inhalation Once a day for 30 days Feb, Active Completed/Discontinued Medications Medication Drug Class(es) Dates Sig (Normalized) Sig (Original) azithromycin 250 mg oral tablet (20 sources) Macrolide Antimicrobial Start: 12-12-2022 Azithromycin 250 MG as directed Orally daily for 5 days Nov, Not-Taking/PRN Start: 11-01-2022 Azithromycin 2 50 MG 2 tablet on the first day, then 1 tablet daily for 4 days Orally Once a day for 5 day(s) Oct, Not-Taking/PRN benzonatate 100 mg oral capsule (11 sources) Non-narcotic Antitussive Start: 11-01-2022 take 1 capsule by mouth three times daily as needed Tessalon Perles 100 MG 1 capsule as needed Orally Three times a day for 7 days Oct, Not-Taking/PRN betamethasone 1 mg/ml topical cream (20 sources) Corticosteroid Start: 10-21-2018 betamethasone Top valerate 0.1% Crm 1 morgan, Topical, Daily, Refill(s) 0 Start Date: 09/04/19 Status: Ordered Betamethasone No t-Taking/PRN Betamethasone No t-Taking Betamethasone Ac tive Claritin-D 12 Hour 5-120 MG (14 sources) Start: 04-25-2022 take 5-120 mg by mouth twice daily as needed Claritin-D 12 Hour 5-120 MG 1 tablet Orally two times daily, as needed Apr, Not-Taking Start: 04-25-2022 take 5-120 mg by grzegorz th twice daily as needed Claritin-D 12 Hour 5-120 MG 1 tablet Orally two times daily, as needed for 90 days Apr, Active levothyroxine sodium 0.088 mg oral tablet (20 sources) l-Thyroxine Start: 09-04-2019 take 1 tablet by mouth once daily levothyroxine 88 mcg (0.088 mg) Tab 88 microgram = 1 tab(s), Oral, Daily, Refills(s) 0 Start Date: 09/04/19 Status: Ordered Start: 10-21-2018 take 100 ug by mouth once daily Levothyroxine Active 100 MCG PO Daily October 21, 2018 12:00am take 1 tablet by grzegorz th once daily Levothyroxine Sodium 100 MCG TAKE 1 TABLET DAILY ON AN EMPTY STOMACH. (REPLACING 88MCG) Orally Once a day for 90 days Active Levothyroxine So dium Active 12 hr loratadine 5 mg / pseudoephedrine sulfate 120 mg extended release oral tablet (4 sources) alpha-Adrenergic Agonist Start: 04-25-2022 take 5-120 mg by mouth twice daily as needed Claritin-D 12 Hour 5-120 MG 1 tablet Orally two times daily, as needed Apr, Not-Taking/PRN Start: 09-04-2019 take 1 tablet by grzegorz th once daily Claritin-D 5 mg-120 mg Tab-ER 1 tab(s), Oral, Daily, Refill(s) 0 Start Date: 09/04/19 Status: Ordered Start: 10-21-2018 take 1 tablet by grzegorz th once daily, then take 1 tablet by mouth every twenty-four hours Loratadine-Pseudoephedrine (Claritin-D 24 Hour) 10-240 mg Tablet Extended Release 24 Hr Active 1 TAB PO Daily October 21, 2018 12:00am metroNIDAZOLE 0.0075 mg/mg topical gel (18 sources) Nitroimidazole Antimicrobial metroNIDAZOLE 0.75 % 1 application to affected area Externally Twice a day Not-Taking/PRN nitrofurantoin, macrocrystals 25 mg / nitrofurantoin, monohydrate 75 mg oral capsule (2 sources) Nitrofuran Antibacterial Start: 02-20-2023 Macrobid 100 mg Cap 100 mg = 1 cap(s), Oral, As Directed, take 1 tablet within 1 hour before or after intercourse to prevent infection., # 30 cap(s), Refills(s) 3, Pharmacy: [facility], 158, cm, 02/20/23 8:48:00 EST, Height/Length Dosing, 68.5, kg, 02/20/23 8:48:00 EST, Weight Dosing Start Date: 02/20/23 Status: Ordered Start: 12-01-2021 Macrobid 100 m g Cap 100 mg = 1 cap(s), Oral, As Directed, take 1 tablet within 1 hour after intercourse to prevent infection., # 30 cap(s), Refills(s) 1, Pharmacy: [id number] #[id number], 158, cm, 12/01/21 9:55:00 EDT, Height/Length Dosing, 68, kg, 12/01/21 9:55:00 EDT, Weight... Start Date: 12/01/21 Status: Ordered sucralfate 1000 mg oral tablet (1 source) Aluminum Complex Start: 12-11-2019 sucralfate ta b 1 gram = 1 tab(s), Oral, QIDACHS, Refills(s) 0 Start Date: 12/11/19 Status: Ordered triamcinolone acetonide 40 mg/ml injectable suspension (20 sources) Corticosteroid Start: 10-10-2021 Kenalog-40 July, 40 mg Start: 05-25-2019 Kenalog -40 mg May, 40 mg Problems Active Problems Problem Classification Problem Date Documented Da te Episodic/Chronic Abdominal pain (6 sources) Epigastric pain; Translations: [Epigastric pain] 12-11-2019 Episodic Acute and chronic tonsillitis (2 sources) Chronic disease of tonsils AND/OR adenoids; Translations: [Other chronic diseases of tonsils and adenoids] Chronic Allergic reactions (3 sources) Urticaria; Translations: [Unspecified urticaria] Episodic Anxiety disorders (9 sources) Generalized anxiety disorder; Translations: [Generalized anxiety disorder] Chronic Asthma (20 sources) Asthma; Translations: [Mild persistent asthma] Onset: 5 04-12-2021 Chronic Asthma (1 source) Asthma; Translations: [Asthma, unspecified, unspecified status] Onset: 6 Cataract (2 sources) Bilateral cataracts 09-04-2019 Chronic Chronic obstructive pulmonary disease and bronchiectasis (1 source) Bronchitis, not specified as acute or chronic Episodic Deficiency and other anemia (1 source) Anemia, unspecified Episodic Disorders of lipid metabolism (19 sources) Hyperlipidemia; Translations: [Pure hypercholesterolemia, unspecified] Onset: 8 08-31-2019 Chronic Disorders of teeth and jaw (2 sources) Periapical abscess without sinus tract; Translations: [Periapical abscess without sinus] Episodic Esophageal disorders (12 sources) Gastroesophageal reflux disease; Translations: [Esophageal reflux finding] Onset: 6 12-11-2019 Chronic Essential hypertension (20 sources) Elevated blood pressure; Translations: [Essential (primary) hypertension] Onset: 5 08-31-2019 Chronic Fracture of lower limb (14 sources) Displaced fracture of fifth metatarsal bone, right foot, subsequent encounter for fracture with routine healing; Translations: [Displaced fracture of fifth metatarsal bone, right foot, initial encounter for closed fracture] Onset: 2 Episodic Gastroduodenal ulcer (except hemorrhage) (8 sources) H/O: gastric ulcer; Translations: [H/O: peptic ulcer] Onset: 4 08-31-2019 Episodic Genitourinary symptoms and ill-defined conditions (4 sources) Mixed incontinence; Translations: [Incontinence] Onset: 2 Chronic Genitourinary symptoms and ill-defined conditions (6 sources) Sensation as if bladder still full; Translations: [Feeling of incomplete bladder emptying] Onset: 2 Episodic Headache; including migraine (20 sources) Tension-type headache; Translations: [Tension-type headache, unspecified, not intractable] Onset: 6 08-31-2019 Chronic Joint disorders and dislocations; trauma-related (2 sources) Disorder of right patellofemoral joint; Translations: [Patellofemoral disorders, right knee] Onset: 8 Chronic Miscellaneous mental health disorders (2 sources) Primary insomnia; Translations: [Primary insomnia] Chronic Nausea and vomiting (4 sources) Nausea; Translations: [Nausea] Onset: 6 Episodic Nutritional deficiencies (9 sources) Vitamin D deficiency; Translations: [Vitamin D deficiency, unspecified] Chronic Osteoarthritis (20 sources) Arthritis of acromioclavicular joint; Translations: [Primary osteoarthritis, right shoulder] Onset: 7 04-12-2021 Chronic Osteoporosis (13 sources) Age-related osteoporosis without current pathological fracture; Translations: [Primary osteoporosis] Onset: 3 Chronic Other aftercare (1 source) 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; Translations: [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 ASPIRIN] Onset: 3 Episodic Other aftercare (3 sources) Other alf (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 therapy; Translations: [OTH JOURNAL BOX INSPECTOR CURRENT DRUG THERAPY] Onset: 2 Episodic Other aftercare (1 source) Long-term current use of drug therapy; Translations: [Other alf (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 therapy] Episodic Other and unspecified benign neoplasm (2 sources) History of polyp of colon 09-04-2019 Episodic Other bone disease and musculoskeletal deformities (2 sources) Osteopenia 08-31-2019 Episodic Other bone disease and musculoskeletal deformities (2 sources) Other specified disorders of bone density and structure, left thigh; Translations: [Other specified disorders of bone density and structure, left thigh] Episodic Other connective tissue disease (18 sources) Supraspinatus tear; Translations: [Unspecified rotator cuff tear or rupture of left shoulder, not specified as traumatic] Episodic Other connective tissue disease (2 sources) Unspecified rotator cuff tear or rupture of left shoulder, not specified as traumatic Onset: 2 Resolved: 2 Episodic Other connective tissue disease (2 sources) Prepatellar bursitis of left knee; Translations: [Prepatellar bursitis, left knee] Episodic Other diseases of bladder and urethra (4 sources) Urethral caruncle; Translations: [Urethral caruncle] Onset: 2 Episodic Other disorders of stomach and duodenum (2 sources) 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 Other gastrointestinal disorders (2 sources) Irritable bowel syndrome characterized by constipation; Translations: [Irritable bowel syndrome with constipation] Chronic Other gastrointestinal disorders (2 sources) Abdominal bloating 12-11-2019 Episodic Other gastrointestinal disorders (1 source) Oropharyngeal dysphagia; Translations: [Dysphagia, oropharyngeal phase] Episodic Other gastrointestinal disorders (1 source) Dysphagia, oropharyngeal phase; Translations: [Dysphagia, oropharyngeal phase] Episodic Other inflammatory condition of skin (1 source) Seborrheic dermatitis; Translations: [Seborrheic dermatitis, unspecified] Episodic Other inflammatory condition of skin (1 source) Seborrheic dermatitis, unspecified; Translations: [Seborrheic dermatitis, unspecified] Episodic Other injuries and conditions due to external causes (1 source) History of fall; Translations: [History of falling] Episodic Other injuries and conditions due to external causes (1 source) History of falling; Translations: [History of falling] Episodic Other lower respiratory disease (1 source) Personal history of pneumonia (recurrent); Translations: [PERSONAL HX OF PNEUMONIA RECURRENT] Onset: 3 Episodic Other nervous system disorders (18 sources) Chronic pain; Translations: [Other chronic pain] Chronic Other non-traumatic joint disorders (2 sources) Pain in left shoulder Onset: 2 Resolved: 2 Episodic Other nutritional; endocrine; and metabolic disorders (1 source) Overweight; Translations: [Overweight] Episodic Other nutritional; endocrine; and metabolic disorders (1 source) Overweight; Translations: [Overweight] Episodic Other screening for suspected conditions (not mental disorders or infectious disease) (5 sources) Encounter for screening mammogram for malignant neoplasm of breast; Translations: [Abnormal findings on diagnostic imaging of skull and head] Onset: 6 Episodic Other upper respiratory disease (12 sources) Allergic rhinitis due to pollen; Translations: [Allergic rhinitis due to pollen] 08-31-2019 Chronic Other upper respiratory disease (2 sources) Seasonal allergic rhinitis; Translations: [Other seasonal allergic rhinitis] Onset: 8 Chronic Other upper respiratory disease (4 sources) Allergic rhinitis; Translations: [Allergic rhinitis, unspecified] Chronic Other upper respiratory disease (1 source) Allergic rhinitis, unspecified; Translations: [Allergic rhinitis, unspecified] Chronic Other upper respiratory disease (1 source) Allergic rhinitis due to pollen Chronic Other upper respiratory disease (1 source) Other allergic rhinitis Chronic Other upper respiratory disease (2 sources) Dysphonia; Translations: [Dysphonia] Episodic Other upper respiratory infections (8 sources) Acute maxillary sinusitis; Translations: [Acute recurrent maxillary sinusitis] Onset: 7 Episodic Otitis media and related conditions (4 sources) Eustachian tube disorder; Translations: [Other specified disorders of Eustachian tube, unspecified ear] Episodic Residual codes; unclassified (1 source) Acquired absence of other specified parts of digestive tract; Translations: [ACQ ABSENCE OTH PART DIGESTV TRACT] Onset: 3 Episodic Residual codes; unclassified (1 source) Asymptomatic menopausal state Episodic Spondylosis; intervertebral disc disorders; other back problems (20 sources) Cervical spondylosis; Translations: [Spondylosis without myelopathy or radiculopathy, cervical region] Onset: 6 08-31-2019 Chronic Spondylosis; intervertebral disc disorders; other back problems (20 sources) Cervico-occipital neuralgia; Translations: [Occipital neuralgia] Episodic Sprains and strains (12 sources) Strain of unspecified muscle, fascia and tendon at shoulder and upper arm level, left arm, initial encounter; Translations: [Strain of muscle and tendon of back wall of thorax, initial encounter] Onset: 4 Episodic Superficial injury; contusion (2 sources) Contusion of left knee; Translations: [Contusion of left knee, initial encounter] Episodic Systemic lupus erythematosus and connective tissue disorders (1 source) Autoimmune disease; Translations: [Autoimmune disease, not elsewhere classified] Onset: 8 Chronic Thyroid disorders (20 sources) Autoimmune hypothyroidism; 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] Onset: 2 08-31-2019 Chronic Unclassified (2 sources) Asymptomatic microscopic hematuria 12-01-2021 Unclassified (2 sources) Finding of sensation of bladder 04-13-2021 Unclassified (1 source) CONTACT W/AND (SUSP) EXPOS COVID-19; Translations: [CONTACT W/AND (SUSP) EXPOS COVID-19] Onset: 3 Unclassified (2 sources) Exposure to acute respiratory syndrome coronavirus 2; Translations: [Contact with and (suspected) exposure to COVID-19] Unclassified (1 source) Long-term current use of drug therapy; Translations: [Long-term (current) use of other medications] Onset: 8 Unclassified (1 source) Autoimmune disease, not elsewhere classified; Translations: [Autoimmune disease, not elsewhere classified] Onset: 8 Unclassified (1 source) Unspecified urticaria; Translations: [Unspecified urticaria] Unclassified (1 source) Other specified disorders of rotator cuff syndrome of shoulder and allied disorders; Translations: [Other specified disorders of rotator cuff syndrome of shoulder and allied disorders] Onset: 9 Unclassified (1 source) Long-term (current) use of other medications; Translations: [Long-term (current) use of other medications] Onset: 8 Unclassified (1 source) Bacterial infection, unspecified, in conditions classified elsewhere and of unspecified site; Translations: [Bacterial infection, unspecified, in conditions classified elsewhere and of unspecified site] Onset: 6 Unclassified (1 source) Pain in joint, ankle and foot; Translations: [Pain in joint, ankle and foot] Onset: 6 Urinary tract infections (5 sources) Urinary tract infectious disease; Translations: [Urinary tract infection, site not specified] Onset: 2 Episodic Past or Other Problems Problem Classification Problem Date Documented Da te Episodic/Chronic Acute bronchitis (2 sources) Acute bronchitis; Translations: [Acute bronchitis, unspecified] Onset: 05-12-2014 Episodic Bacterial infection; unspecified site (1 source) Bacterial infectious disease; Translations: [Bacterial infection, unspecified, in conditions classified elsewhere and of unspecified site] Onset: 08-08-2015 Episodic E Codes: Natural/environment (1 source) Overexertion from prolonged static or awkward postures, initial encounter; Translations: [OVEREXERT PROLNG STAT/AWK PST INIT] Onset: 03-13-2022 Episodic Esophageal disorders (4 sources) Esophageal disorders; Translations: [Gastro-esophageal reflux disease with esophagitis, without bleeding] Headache; including migraine (2 sources) Headache; Translations: [Headache] Onset: 01-12-2016 Episodic Menopausal disorders (1 source) Hormone replacement therapy; Translations: [HORMONE REPLACEMENT THERAPY] Onset: 03-13-2022 Episodic Nonspecific chest pain (2 sources) Chest pain; Translations: [Other chest pain] Onset: 02-04-2017 Episodic Other bone disease and musculoskeletal deformities (1 source) Bone density finding; Translations: [Other specified disorders of bone density and structure, unspecified site] Onset: 02-04-2017 Episodic Other bone disease and musculoskeletal deformities (1 source) Other specified disorders of bone density and structure, unspecified site; Translations: [Oth disrd of bone density and structure, unspecified site] Onset: 02-04-2017 Episodic Other connective tissue disease (3 sources) Pain in right foot; Translations: [PAIN IN RIGHT FOOT] Onset: 12-26-2022 Episodic Other connective tissue disease (1 source) Disorder of rotator cuff; Translations: [Other specified disorders of rotator cuff syndrome of shoulder and allied disorders] Onset: 04-11-2018 Episodic Other connective tissue disease (1 source) Plantar fascial fibromatosis; Translations: [Plantar fascial fibromatosis] Onset: 11-19-2015 Episodic Other connective tissue disease (2 sources) Achilles bursitis; Translations: [Achilles bursitis or tendinitis] Onset: 11-19-2015 Episodic Other connective tissue disease (1 source) Plantar fascial fibromatosis; Translations: [Plantar fascial fibromatosis] Onset: 11-19-2015 Episodic Other nervous system disorders (2 sources) Ataxic gait; Translations: [Ataxic gait] Onset: 01-18-2016 Episodic Other non-traumatic joint disorders (1 source) Arthralgia of the upper arm; Translations: [Pain in unspecified elbow] Onset: 02-23-2014 Episodic Other non-traumatic joint disorders (1 source) Shoulder joint pain; Translations: [Pain in right shoulder] Onset: 02-04-2017 Episodic Other non-traumatic joint disorders (1 source) Arthralgia of the ankle and/or foot; Translations: [Pain in joint, ankle and foot] Onset: 11-19-2015 Episodic Other non-traumatic joint disorders (1 source) Pain in unspecified elbow; Translations: [Pain in unspecified elbow] Onset: 02-23-2014 Episodic Other non-traumatic joint disorders (1 source) Pain in right shoulder; Translations: [Pain in right shoulder] Onset: 02-04-2017 Episodic Other nutritional; endocrine; and metabolic disorders (6 sources) Body mass index 25-29 - overweight; Translations: [Body mass index 28.0-28.9, adult] Onset: 09-28-2015 Episodic Other skin disorders (2 sources) Disorder of skin and/or subcutaneous tissue; Translations: [Disorder of the skin and subcutaneous tissue, unspecified] Onset: 11-04-2014 Episodic Residual codes; unclassified (1 source) Family history of malignant neoplasm of breast; Translations: [FAMILY HX MALIG NEOPLASM OF BREAST] Onset: 02-01-2022 Episodic Residual codes; unclassified (1 source) Family history of malignant neoplasm of other organs or systems; Translations: [FAM HX MALIG NEOPLASM OTH ORGN/SYS] Onset: 02-01-2022 Episodic Results Test Name Value Interpretation Reference Range Facility Ambulatory Visit Summaryon 1 04-23-2022 Ambulatory Visit Summary MUNIRA CHESTER :1950 Visit Date:02/20/2023 Ambulatory Visit Instructions Your Diagnosis Mixed incontinence Recurrent UTI Urethral caruncle Tests Performed Urnls Dip Stick Auto w/o Microscopy POC [id number] Your Care Team Attending Physician - Asuncion Buchanan MD Primary Care Physician - ANDREA WU DO This Is Your Medications List estradiol topical (estradiol 0.1 mg/g Vag Crm) nitrofurantoin (Macrobid 100 mg Cap) Contact prescribing physician if questions or concerns albuterol (ProAir HFA 90 mcg/inh inhalation aerosol) alendronate (Fosamax 70 mg Tab) amlodipine (amLODIPine 5 mg Tab) atorvastatin (atorvastatin 10 mg Tab) epinephrine (EpiPen 2-Giovani) famotidine (famotidine 20 mg Tab) fluticasone nasal (fluticasone 0.05 mg/inh Nasal [place]) fluticasone/umeclidinium/aiden nterol (Trelegy Ellipta 200 mcg-62.5 mcg-25 mcg/inh inhalation powder) levothyroxine (levothyroxine 88 mcg (0.088 mg) Tab) pantoprazole (Pantoprazole [address] Tab) Procedures Performed Colonoscopy (09/07/2019), EGD - Esophagogastroduodenoscopy (09/07/2019), Colonoscopy (01/16/2015), EGD - Esophagogastroduodenoscopy (01/16/2015), EGD - Esophagogastroduodenoscopy (08/17/2011), EGD - Esophagogastroduodenoscopy (05/17/2011), Laparoscopic cholecystectomy (06/16/2010), Colonoscopy (01/16/2010), Cataracts, section, Foot, Rotator cuff repair, Tubal ligation. Discharge Vitals Height 158 cm Height 62 in Weight 68.5 kg Weight 150.7 lb BMI 27.44 What to do next Scheduled Follow-Up Appointments Saturday 8:00 AM EST With: Asuncion Buchanan MD Where: [facility] Patient Educationon 02-21-20 23 Patient Education Obstetrics and Gynecology Pelvic Floor Dysfunction, Female Pelvic floor dysfunction (PFD) is a condition that results when the group of muscles and connective tissues that support the organs in the pelvis (pelvic floor muscles) do not work well. These muscles and their connections form a sling that supports the colon and bladder. In women, they also support the uterus. PFD causes pelvic floor muscles to be too weak, too tight, or both. In PFD, muscle movements are not coordinated. This may cause bowel or bladder problems. It may also cause pain. What are the causes? This condition may be caused by an injury to the pelvic area or by a weakening of pelvic muscles. This often results from and childbirth or other types of strain. In many cases, the exact cause is not known. What increases the risk? The following factors may make you more likely to develop this condition: ? Having chronic bladder tissue inflammation (interstitial cystitis). ? Being an older person. ? Being overweight. ? History of radiation treatment for cancer in the pelvic region. ? Previous pelvic surgery, such as removal of the uterus (hysterectomy). What are the signs or symptoms? Symptoms of this condition vary and may include: ? Bladder symptoms, such as: ? Trouble starting urination and emptying the bladder. ? Frequent urinary tract infections. ? Leaking urine when coughing, laughing, or exercising (stress incontinence). ? Having to pass urine urgently or frequently. ? Pain when passing urine. ? Bowel symptoms, such as: ? Constipation. ? Urgent or frequent bowel movements. ? Incomplete bowel movements. ? Painful bowel movements. ? Leaking stool or gas. ? Unexplained genital or rectal pain. ? Genital or rectal muscle spasms. ? Low back pain. Other symptoms may include: ? A heavy, full, or aching feeling in the vagina. ? A bulge that protrudes into the vagina. ? Pain during or after sex. How is this diagnosed? This condition may be diagnosed based on: ? Your symptoms and medical history. ? A physical exam. During the exam, your health care provider may check your pelvic muscles for tightness, spasm, pain, or weakness. This may include a rectal exam and a pelvic exam. In some cases, you may have diagnostic tests, such as: ? Electrical muscle function tests. ? Urine flow testing. ? X-ray tests of bowel function. ? Ultrasound of the pelvic organs. How is this treated? Treatment for this condition depends on the symptoms. Treatment options include: ? Physical therapy. This may include Kegel exercises to help relax or strengthen the pelvic floor muscles. ? Biofeedback. This type of therapy provides feedback on how tight your pelvic floor muscles are so that you can learn to control them. ? Internal or external massage therapy. ? A treatment that involves electrical stimulation of the pelvic floor muscles to help control pain (transcutaneous electrical nerve stimulation, or TENS). ? Sound wave therapy (ultrasound) to reduce muscle spasms. ? Medicines, such as: ? Muscle relaxants. ? Bladder control medicines. Surgery to reconstruct or support pelvic floor muscles may be an option if other treatments do not help. Follow these instructions at home: Activity ? Do your usual activities as told by your health care provider. Ask your health care provider if you should modify any activities. ? Do pelvic floor strengthening or relaxing exercises at home as told by your physical therapist. Lifestyle ? Maintain a healthy weight. ? Eat foods that are high in fiber, such as beans, whole grains, and fresh fruits and vegetables. ? Limit foods that are high in fat and processed sugars, such as fried or sweet foods. ? Manage stress with relaxation techniques such as yoga or meditation. General instructions ? If you have problems with leakage: ? Use absorbable pads or wear padded underwear. ? Wash frequently with mild soap. ? Keep your genital and anal area as clean and dry as possible. ? Ask your health care provider if you should try a barrier cream to prevent skin irritation. ? Take warm baths to relieve pelvic muscle tension or spasms. ? Take [id number] and prescription medicines only as told by your health care provider. ? Keep all follow-up visits. How is this prevented? The cause of PFD is not always known, but there are a few things you can do to reduce the risk of developing this condition, including: ? Staying at a healthy weight. ? Getting regular exercise. ? Managing stress. Contact a health care provider if: ? Your symptoms are not improving with home care. ? You have signs or symptoms of PFD that get worse at home. ? You develop new signs or symptoms. ? You have signs of a urinary tract infection, such as: ? Fever. ? Chills. ? Increased urinary frequency. ? A burning feeling when urinating. ? You have not had a bowel movement i (more content not included)... Normal [facility] Office/Clinic Noteon 02-20-2023 Urology Office/Clinic Note Chief Complaint 1yr HPI Staff 1yr DX: UTI, Mixed Incontinence, Nocturia, Urethral Caruncle & Incomplete Bladder Emptying *Estrace Cream & Macrobid 100mg (PRN before/after intercourse). 2 infections since last encounter, states she did not take the Macrobid after sex. Had burning, visible blood in urine, & frequency. 3 days later, she took the 2 pills of Macrobid. Both times. No UA done, No C&S. Still having leaking with urgency & coughing. Mostly during the night. Getting up at least 2x/night to void. Mostly concerned with the getting up at night and urgency while riding motorcycle History of Present Illness Tests reviewed: reviewed UA I have reviewed the previous health record information and history for this patient from Dr. Buchanan. I have reviewed and verified the staff HPI to be accurate for this encounter. Review of Systems PHQ Score Initial Depression Screen Score: 0 SCORE ROS - Provider Constitutional: denies weight loss, denies hot flashes. Eyes: denies eye problems. Gastrointestinal: denies nausea, denies vomiting. Cardiovascular: denies chest pain or angina. Integumentary: no dryness Musculoskeletal: denies musculoskeletal symptoms. ENMT: denies otolaryngeal symptoms. Respiratory: no shortness of breath. Heme/Lymph: denies easy bleeding tendency, denies easy bruising tendency. Psychiatric: no confusion, no anxiety. Genitourinary: See HPI. Physical Exam Vitals & Measurements HT: 62 in HT: 158 cm WT: 68.5 kg WT: 150.7 lb BMI: 27.44 General Appearance: alert , no acute distress, well nourished, well developed female. Genitourinary: bladder nonpalpable, no flank pain. Assessment/Plan 72 yo female here for follow up of stress predominant mixed urinary incontinence and recurren UTIs 1. Mixed incontinence (N39.46: Mixed incontinence) ROSA MARIA > UUI. Did not take Myrbetriq due to expense. BBS 17-19. Continues to have leaking with urgency and coughing/sneezing. Mostly during the night., gets up 2x/night to void. Admits she drinks smaller volumes of fluid prior to bedtime. Reports Kegel exercises seems to help with leakage. Also admits her urinary sxs and BMs have worsened since recent health complications with asthma, on steroids. Discussed different options and risks/benefits, such as bladder medications, formal PFPT, Botox, bladder sling, and Bulkamid. Advised pt prior pelvic exam showed weak PF so if she chose to proceed with PFPT, she would need a referral for formal therapy. Pt does not want to proceed with PFPT due to believing her insurance will not cover it. Advised pt medications would be improve urgency/frequency if she would like to have tx at this time. States she is worried about SEs. Educated pt on various medication options and their SEs. Does not wish to proceed with tx at this time. Reports hx of mesh for uterus but had complications. Advised pt if she elects to proceed with sling procedure, we would place external referral. -Practice Kegels, declined formal PFPT -Recommended pt to stop fluids 2hrs prior to bedtime. -Information for bulkamid provided, risks/benefits thoroughly discussed. Patient understands need for pelvic exam to demonstrate leakage. Prior pelvic exam did not show ROSA MARIA. -Timed voids, bowel regimen 2. Recurrent UTI (N39.0: Urinary tract infection, site not specified) Taking Macrobid 100mg prn with intercourse to prevent infections. Works well when she remembers to take it. Would like to continue given its effectiveness. Reports 2 infections since last encounter but did not take the Macrobid after sex. Had burning, visible blood in urine, & frequency. Then took the pills 2 days later to help with sxs. UA today shows trace-intact blood and trace leuks. Denies current UTI sxs. -Cont Macrobid 100 mg on demand ramya-sexual intercourse for UTI prevention. Tolerating well. Risk and benefits discussed. Refill sent today. 3. Urethral caruncle (N36.2: Urethral caruncle) Continues using estrace cream topical twice a week. Denies SEs. Feels it has been working well. She would like to continue -Continue Estrace cream as above, refill medication sent today Follow-up With When Contact Information Dewayne VILLEGAS, Asuncion [place], URL, [facility] [address], [place] [address]- [phone] Additional Instructions: 1 yr Patient Education Pelvic Floor Dysfunction, Female Kegel Exercises I, Kimmie Lemus, personally scribed for Dr. Buchanan on 02/20/2023 09:52:34. . Documentation recorded by the scribe, Kimmie Lemus, accurately reflects the services(s) I performed and decisions made by me. Authenticated by Dr. Buchanan on 02/20/2023 18:18:32. Problem List/Past Medical History Ongoing Abdominal bloating Acute allergic rhinitis due to pollen Arthritis Asthma Asymptomatic microscopic hematuria Benign essential hypertension Bilateral cataracts Cervical spondylosis Chronic tension headache Duodenal stricture Epigast (more content not included)... Normal [facility] Comment on above: Result Comment: Electronically Signed By : Asuncion Buchanan MD\.br\Date and Time Signed: 02/20/23 18:21 EST\.br\Electronically Co-Signed By: Kimmie Lemus\.br\Date and Time Co-Signed: 02/20/23 09:53 EST POINT OF CARE GLUCOSEon 03-18 Glucose [Mass/Vol] 94 mg/dL Normal 74-106 [facility] Comment on above: Performed By: #### POCGLUC ####[facility] [id number] [id number] Dwight Mario Glucose [Mass/Vol] 106 mg/dL Normal 74-106 [facility] Comment on above: Performed By: #### POCGLUC ####[facility] [id number] [address]Dr. Dwight Mario Covid-19 PCR (CVDTBH)on 03-18 SARS-CoV-2 (COVID-19) RNA GIOVANI+probe Ql (Unsp spec) Not detected Normal NOT DETECTED [facility] Comment on above: Result Comment: This test is not yet morgan roved or cleared by the [place] FDA. When there are no FDA-approved or cleared tests available, and other criteria are met, FDA can make tests available under an emergency access mechanism called an Emergency Use Authorization (EUA). The EUA for this test is supported by the [place] of Health and Human Service's (HHS's) declaration that circumstances exist to justify the emergency use of in vitro diagnostics for the detection and/or diagnosis of the virus that causes COVID-19. This EUA will remain in effect (meaning this test can be used) for the duration of the COVID-19 declaration justifying emergency of IVDs, unless it is terminated or revoked by FDA (after which the test may no longer be used). When diagnostic testing is negative, the possibility of a false negative should be considered in the context of a patient's recent exposures and the presence of clinical signs and symptoms consistent with SARS-CoV-2. Performed By: #### C VDTB #### [facility] [address] [place] [address] Dr. Dwight Mario PROF CHEM 8 (BAS METB)on Anion gap [Moles/Vol] 13.4 mmol/L Normal [facility] Comment on above: Performed By: #### BMP #### [facility] [address] [place] [address] Dr. Dwight Mario Calcium [Mass/Vol] 9.1 mg/dL Normal 8.5-10.1 [facility] Comment on above: Performed By: #### BMP #### [facility] [address] [place] [address] Dr. Dwight Mario Chloride [Moles/Vol] 107 mmol/L Normal 98-107 [facility] Comment on above: Performed By: #### BMP #### [facility] [address] [place] [address] Dr. Dwight Mario CO2 [Moles/Vol] 26.5 mmol/L Normal 21.0-32.0 [facility] Comment on above: Performed By: #### BMP #### [facility] [address] [place] [address] Dr. Dwight Mario Creatinine [Mass/Vol] 0.76 mg/dL Normal 0.55-1.02 [facility] Comment on above: Performed By: #### BMP #### [facility] [address] [place] [address] Dr. Dwight Mario EGFR-AF SAUDI ARABIAN >60 Normal >=60 [facility] Comment on above: Performed By: #### BMP #### [facility] [address] [address] [address] Dwight Mario EGFR-NON AF SAUDI ARABIAN >60 Normal >=60 [facility] Comment on above: Performed By: #### BMP #### [facility] [address] [address] [address] Dwight Mario Glucose [Mass/Vol] 108 mg/dL Critically high 74-106 [facility] Comment on above: Performed By: #### BMP #### [facility] [address] [place] [address] Dr. Dwight Mario Potassium [Moles/Vol] 3.9 mmol/L Normal 3.5-5.1 [facility] Comment on above: Performed By: #### BMP #### [facility] [address] [place] [address] Dr. Dwight Mario Sodium [Moles/Vol] 143 mmol/L Normal 136-145 [facility] Comment on above: Performed By: #### BMP #### [facility] [address] [place] [address] Dr. Dwight Mario Urea nitrogen [Mass/Vol] 25.0 mg/dL Critically high 7.0-18.0 [facility] Comment on above: Performed By: #### BMP #### [facility] [address] [place] [address] Dr. Dwight Mario Urea nitrogen/Creatin ine [Mass ratio] 32.9 mg/mg Normal [facility] Comment on above: Performed By: #### BMP #### [facility] [address] [place] [address] Dr. Dwight Mario CBC AUTO DIFFon 01-29-2022 BASO # 0.0 103/ul Normal 0.0-0.1 [facility] Comment on above: Performed By: #### CBC #### [facility] [address] [place] [address] Dr. Dwight Mario Basophils/100 WBC (Bld) 0.4 % Normal 0.2-2.0 [facility] Comment on above: Performed By: #### CBC #### [facility] [address] [place] [address] Dr. Dwight Mario EO # 0.3 103/ul Normal 0.0-0.7 [facility] Comment on above: Performed By: #### CBC #### [facility] [address] [place] [address] Dr. Dwight Mario Eosinophils/100 WBC (Bld) 2.8 % Normal 0.9-7.0 [facility] Comment on above: Performed By: #### CBC #### [facility] [address] [place] [address] Dr. Dwight Mario Erythrocyte distribution width (RBC) [Ratio] 14.0 % Normal 11.0-15.0 [facility] Comment on above: Performed By: #### CBC #### [facility] [address] [place] [address] Dr. Dwight Mario Hematocrit (Bld) [Volume fraction] 38.3 % Normal 36.0-48.0 [facility] Comment on above: Performed By: #### CBC #### [facility] [address] [place] [address] Dr. Dwight Mario Hemoglobin (Bld) [Mass/Vol] 12.6 g/dL Normal 12.0-16.0 [facility] Comment on above: Performed By: #### CBC #### [facility] [address] [place] [address] Dr. Dwight Mario IG # 0.03 10e3/ul Normal 0.00-0.03 [facility] Comment on above: Performed By: #### CBC #### [facility] [address] [place] [address] Dr. Dwight Mario IG % 0.3 % Normal 0.0-0.5 [facility] Comment on above: Performed By: #### CBC #### [facility] [address] [place] [address] Dr. Dwight Mario LYMPH # 2.9 103/ul Normal 1.2-3.8 [facility] Comment on above: Performed By: #### CBC #### [facility] [address] [place] [address] Dr. Dwight Mario Lymphocytes/100 WBC (Bld) 29.0 % Normal 20.5-60.0 [facility] Comment on above: Performed By: #### CBC #### [facility] [address] [place] [address] Dr. Dwight Mario MANUAL DIFF REQ NO Normal [facility] Comment on above: Performed By: #### CBC #### [facility] [address] [place] [address] Dr. Dwight Mario MCH (RBC) [Entitic mass] 30.3 pg Normal 26.7-34.0 [facility] Comment on above: Performed By: #### CBC #### [facility] [address] [place] [address] Dr. Dwight Mario MCHC (RBC) [Mass/Vol] 32.9 g/dL Normal 29.9-35.2 [facility] Comment on above: Performed By: #### CBC #### [facility] [address] [place] [address] Dr. Dwight Mario MCV (RBC) [Entitic vol] 92.1 fL Normal 81.0-99.0 [facility] Comment on above: Performed By: #### CBC #### [facility] [address] [place] [address] Dr. Dwight Mario MONO # 0.8 103/ul Normal 0.3-0.8 [facility] Comment on above: Performed By: #### CBC #### [facility] [address] [place] [address] Dr. Dwight Mario Monocytes/100 WBC (Bld) 7.9 % Normal 1.7-12.0 [facility] Comment on above: Performed By: #### CBC #### [facility] [address] [place] [address] Dr. Dwight Mario NEUT # 5.9 103/ul Normal 1.4-6.5 [facility] Comment on above: Performed By: #### CBC #### [facility] [address] [place] [address] Dr. Dwight Mario Neutrophils/100 WBC (Bld) 59.6 % Normal 43.0-75.0 [facility] Comment on above: Performed By: #### CBC #### [facility] [address] [address] [address] Dwight Mario Platelet mean volume (Bld) [Entitic vol] 9.4 fL Critically low 9.5-13.5 [facility] Comment on above: Performed By: #### CBC #### [facility] [address] [address] [address] Dwight Mario PLT 385 103/ul Normal 150-450 [facility] Comment on above: Performed By: #### CBC #### [facility] [address] [address] [address] Dwight Mario RBC 4.16 106/ul Critically low 4.20-5.40 [facility] Comment on above: Performed By: #### CBC #### [facility] [address] [address] [address] Dwight Mario WBC 10.0 103/ul Normal 4.0-11.0 [facility] Comment on above: Performed By: #### CBC #### [facility] [address] [address] [address] Dwight Mario LIPID PROFILEon 01-29-2022 CHOL-HDL RATIO NORM SEE BELOW Normal [facility] Comment on above: Result Comment: 3.3 - 4.4 LOW RISK 4.4 - 7.1 AVERAGE RISK 7.1 - 11.0 MODERATE RISK >11.0 HIGH RISK Performed By: #### L IPID, BMP, ALT, TSH ####[facility] [address] [id number] Mario Cholesterol [Mass/Vol] 184 mg/dL Normal <=200 [facility] Comment on above: Performed By: #### LIPID, BMP, ALT, TSH ####[facility] [address] [id number] Mario Cholesterol in HDL [Mass/Vol] 61 mg/dL Critically high 40-60 [facility] Comment on above: Performed By: #### LIPID, BMP, ALT, TSH ####[facility] [address] [id number]. Dwight Mario Cholesterol in LDL [Mass/Vol] 96.0 mg/dL Normal [facility] Comment on above: Performed By: #### LIPID, BMP, ALT, TSH ####[facility] [address] [address]Dr. Dwight Mario Cholesterol.tota l/Cholesterol in HDL [Mass ratio] 3.0 {ratio} Normal [facility] Comment on above: Performed By: #### LIPID, BMP, ALT, TSH ####[facility] [address] [address]Dr. Dwight Mario HDL NORMAL > or = 60 mg/dl - LO W CARDIOVASCULAR RISK <40 mg/dl - HIGH CARDIOVASCULAR RISK Normal [facility] Comment on above: Performed By: #### LIPID, BMP, ALT, TSH ####[facility] [address] [address]Dr. Dwight Mario LDL CALC NORMAL SEE BELOW Normal [facility] Comment on above: Result Comment: <100 mg/dl OPTIMAL 100 - 129 mg/dl NEAR OR ABOVE OPTIMAL 130 - 159 mg/dl BORDERLINE HIGH 160 - 189 mg/dl HIGH >190 mg/dl VERY HIGH Performed By: #### L IPID, BMP, ALT, TSH ####[facility] [address] [address]Dr. Dwight Mario Triglyceride [Mass/Vol] 135 mg/dL Normal <=150 [facility] Comment on above: Performed By: #### LIPID, BMP, ALT, TSH ####[facility] [address] [address]Dr. Dwight Mario VLDL CALC 27.0 mg/dL Normal [facility] Comment on above: Performed By: #### LIPID, BMP, ALT, TSH ####[facility] [address] [address]Dr. Dwight Mario MG MAMM SCREEN 3D ALLEGRA CADon 01-29-2022 MG MAMM SCREEN 3D ALLEGRA CAD Patient: MUNIRA CHESTER Exam Date: 01/29/2022 : 1950 Gender:F Ordering : DR ANDREA WU D.O. Admission #: [id number] Family : DR. MANE ARCE D.O. Order #: [id number] CLICK HERE TO VIEW EXAM RADIOLOGY REPORT PROCEDURE: MAMMOGRAM SCREENING 3D BILATERAL CAD COMPARISON: MG MAMM SCREEN ALLEGRA W CAD, 01/25/2020. MG MAMM SCREEN 3D ALLEGRA CAD, 01/25/2021. INDICATIONS: Screening mammography Calculator Name NCI Breast Cancer Risk Assessment Tool 5 Year Breast Cancer Risk 6.50% Lifetime Breast Cancer Risk 18.80% Personal Breast Cancer No Personal Ovarian Cancer No Treatments None Family Cancers Sister with breast cancer at age 42; Aunt-maternal with breast cancer at age 38; Aunt-maternal with breast cancer at age 55; Aunt-maternal with breast cancer at age 56; Mother with pancreatic cancer at age 52; Sister with breast cancer at age 59. LOCATION: [facility] BREAST COMPOSITION: Scattered areas fibroglandular density. FINDINGS: DIAGNOSTIC CATEGORY 2--BENIGN FINDING. NO CHANGE FROM COMPARISON. Scattered benign-appearing nodules are present. Scattered benign-appearing calcifications are present. Scattered benign-appearing lymph nodes are present. RIGHT BREAST: No significant suspicious finding. LEFT BREAST: No significant suspicious finding. RECOMMENDATIONS: ROUTINE MAMMOGRAM AND CLINICAL EVALUATION IN 12 MONTHS. PLEASE NOTE: A NORMAL MAMMOGRAM DOES NOT EXCLUDE THE POSSIBILITY OF BREAST CANCER. A CLINICALLY SUSPICIOUS PALPABLE LUMP SHOULD BE BIOPSIED. Dictated by: Campos Shah MD on 01/29/2022 at 15:23 Approved by: Campos Shah MD on 01/29/2022 at 15:25 Normal [facility] PROF CHEM 8 (BAS METB)on Anion gap [Moles/Vol] 9.7 mmol/L Normal [facility] Comment on above: Performed By: #### LIPID, BMP, ALT, TSH ####[facility] [address] [id number]. Dwight Mario Calcium [Mass/Vol] 8.9 mg/dL Normal 8.5-10.1 [facility] Comment on above: Performed By: #### LIPID, BMP, ALT, TSH ####[facility] [address] [id number]. Dwight Mario Chloride [Moles/Vol] 105 mmol/L Normal 98-107 [facility] Comment on above: Performed By: #### LIPID, BMP, ALT, TSH ####[facility] [address] [id number]. Dwight Mario CO2 [Moles/Vol] 27.3 mmol/L Normal 21.0-32.0 [facility] Comment on above: Performed By: #### LIPID, BMP, ALT, TSH ####[facility] [address] [id number]. Dwight Mario Creatinine [Mass/Vol] 0.80 mg/dL Normal 0.55-1.02 [facility] Comment on above: Performed By: #### LIPID, BMP, ALT, TSH ####[facility] [address] [address]Dr. Dwight Mario EGFR-AF SAUDI ARABIAN >60 Normal >=60 [facility] Comment on above: Performed By: #### LIPID, BMP, ALT, TSH ####[facility] [address] [address]Dr. Dwight Mario EGFR-NON AF SAUDI ARABIAN >60 Normal >=60 [facility] Comment on above: Performed By: #### LIPID, BMP, ALT, TSH ####[facility] [address] [address]Dr. Dwight Mario Glucose [Mass/Vol] 107 mg/dL Critically high 74-106 [facility] Comment on above: Performed By: #### LIPID, BMP, ALT, TSH ####[facility] [address] [address]Dr. Dwight Mario Potassium [Moles/Vol] 4.0 mmol/L Normal 3.5-5.1 [facility] Comment on above: Performed By: #### LIPID, BMP, ALT, TSH ####[facility] [address] [address]Dr. Dwight Mario Sodium [Moles/Vol] 138 mmol/L Normal 136-145 [facility] Comment on above: Performed By: #### LIPID, BMP, ALT, TSH ####[facility] [address] [address]Dr. Dwight Mario Urea nitrogen [Mass/Vol] 20.0 mg/dL Critically high 7.0-18.0 [facility] Comment on above: Performed By: #### LIPID, BMP, ALT, TSH ####[facility] [address] [address]Dr. Dwight Mario Urea nitrogen/Creatin ine [Mass ratio] 25.0 mg/mg Normal [facility] Comment on above: Performed By: #### LIPID, BMP, ALT, TSH ####[facility] [address] [id number]. Dwight Mario SGPTon 01-29-2022 ALT [Catalytic activity/Vol] 26 U/L Normal 14-59 [facility] Comment on above: Performed By: #### LIPID, BMP, ALT, TSH ####[facility] [address] [address]Dr. Dwight Mario TSHon 01-29-2022 TSH 5.901 uIU/mL Critically high 0.358-3.740 [facility] Comment on above: Performed By: #### LIPID, BMP, ALT, TSH ####[facility] [address] [address]Dr. Dwight Mario XR shoulder LT min 2V*on XR shoulder LT min 2V* [place] [address] XRay Report Signed Patient: Munira Chester MR#: [id number] : 1950 Acct:[id number] Age/Sex: 71 / F ADM Date: 10/10/21 [place] [facility] [place] Type[place] [facility] Attending Dr: Espinoza Botello MD Copies to: Espinoza Botello MD Ordering Provider: Espinoza Botello MD Date of Service: 10/10/21 XR/XR shoulder LT min 2V*: Acute pain of left shoulder XR shoulder LT min 2V* 10/10/2021 8:18 AM SIGNS AND SYMPTOMS: Follow-up left shoulder pain, decreased range of motion PROTOCOL: Frontal, Grashey, scapular Y, and axillary views of the left shoulder COMPARISON: None FINDINGS: Degenerative changes are noted in the glenohumeral joint and acromioclavicular joint without evidence of fracture or dislocation. There is mild subcortical sclerosis along the greater tuberosity which may indicate underlying rotator cuff abnormalities. The visualized left hemithorax is grossly intact. XR/XR shoulder LT min 2V* IMPRESSION: No fracture or dislocation. Mild degenerative changes are noted in the left shoulder with findings suspicious for underlying rotator cuff abnormalities. Impression dictated by: Abelino Prado M.D.10/10/2021 1:25 PM Dictation Location: [address] [address] Transcribed By: [facility] 10/10/21 1325 Dictated By: Abelino Prado II, MD 10/10/21 1324 Signed By: 10/10/21 1325 [facility] MRI SHOULDER LT WO CONon MRI SHOULDER LT WO CON EXAM: MRI SHOULDER LT WO CON REASON FOR EXAM: Strain of muscle of upper limb. TECHNIQUE: Multiplanar, multisequence imaging of the left shoulder was performed without contrast COMPARISON: None. FINDINGS: The acromioclavicular joint is congruent with joint space narrowing, capsular hypertrophy and subchondral edema. Inferior marginal osteophytes do not significantly narrow the supraspinatus outlet. However, there is broad-based thickening and ossification the distal coracoacromial ligament compatible subacromial spur, which does narrow the supraspinatus outlet. Small amount of fluid is present within the subacromial subdeltoid bursa. There is high-grade tendinosis involving the supraspinatus and infraspinatus tendons. There is low to intermediate grade partial-thickness interstitial tearing of the supraspinatus tendon at the myotendinous junction. There is also bursal sided fraying of the central cuff. No full-thickness, medially retracted tear identified. The teres minor tendon is intact. The subscapularis tendon is thickened with intermediate signal consistent with tendinosis. No discrete tear. The extracapsular biceps tendon is within the bicipital groove. Intracapsular biceps tendon is mildly thickened with intermediate signal consistent with tendinosis. No discrete tear. The rotator cuff musculature demonstrates mild atrophy of the supraspinatus muscle. The humerus is centered on the glenoid. The articular cartilage demonstrates low to intermediate grade chondrosis. No detached labral tear identified. Trace joint effusion. The bone marrow signal is without fracture. The far lateral space is patent. No axillary lymphadenopathy. IMPRESSION: 1. High-grade rotator cuff tendinosis with low to intermediate grade partial-thickness likely interstitial tear involving the supraspinatus tendon at the myotendinous junction. No full-thickness, medially retracted tear identified. 2. Biceps tendinosis without tear. 3. Moderate acromioclavicular osteoarthritis with large subacromial spur as well as subacromial subdeltoid bursitis. 4. Mild to moderate glenohumeral osteoarthritis. Electronically authenticated by: YOVANA COTTRELL Date: 2021-10-03 15:02 Normal [facility] Vital Signs Date Time Vital Sign Value Performing Clinician Facility 02-18-2023 11:45-0500 Body height 154.94 cm [facility] Other 02-18-2023 11:45-0500 Body mass index (BMI) [Ratio] 29.4 kg/m2 [facility] Other 02-18-2023 11:45-0500 Body weight 70.58 kg [facility] Other [facility] Other 02-18-2023 11:45-0500 Diastolic blood pressure 80 mm[Hg] [facility] Other 02-18-2023 11:45-0500 Respiratory rate 12 /min [facility] Other 02-18-2023 11:45-0500 SaO2% (BldA) [Mass fraction] 98 % [facility] Other 02-18-2023 11:45-0500 Systolic blood pressure 148 mm[Hg] [facility] Other 01-25-2023 08:30-0500 Body height 154.94 cm Andrea Ball Other [facility] Other 01-25-2023 08:30-0500 Body mass index (BMI) [Ratio] 29.59 kg/m2 Andrea Ball Other [facility] Other 01-25-2023 08:30-0500 Body weight 71.03 kg Andrea Ball Other [facility] Other 01-25-2023 08:30-0500 Diastolic blood pressure 77 mm[Hg] Andrea Ball Other [facility] Other 01-25-2023 08:30-0500 Respiratory rate 12 /min Andrea Ball Other [facility] Other 01-25-2023 08:30-0500 Systolic blood pressure 118 mm[Hg] Andrea Ball Other [facility] Other 12-12-2022 13:45-0400 Body height 154.94 cm Andrea Ball Other [facility] Other 12-12-2022 13:45-0400 Body mass index (BMI) [Ratio] 29.36 kg/m2 Andrea Ball Other [facility] Other 12-12-2022 13:45-0400 Body weight 70.49 kg Andrea Ball Other [facility] Other 12-12-2022 13:45-0400 Diastolic blood pressure 79 mm[Hg] Andrea Ball Other [facility] Other 12-12-2022 13:45-0400 Respiratory rate 12 /min Andrea Ball Other [facility] Other 12-12-2022 13:45-0400 SaO2% (BldA) [Mass fraction] 98 % Andrea Ball Other [facility] Other 12-12-2022 13:45-0400 Systolic blood pressure 130 mm[Hg] Andrea Ball Other [facility] Other 11-01-2022 15:05-0400 Body height 154.94 cm Shannan Webster Other [facility] Other 11-01-2022 15:05-0400 Body mass index (BMI) [Ratio] 28.34 kg/m2 Shannan Webster Other [facility] Other 11-01-2022 15:05-0400 Body temperature 96.2 [degF] Shannan Webster Other [facility] Other 11-01-2022 15:05-0400 Body weight 68.04 kg Shannan Webster Other [facility] Other 11-01-2022 15:05-0400 Diastolic blood pressure 69 mm[Hg] Shannan Webster Other [facility] Other 11-01-2022 15:05-0400 Respiratory rate 18 /min Shannan Webster Other [facility] Other 11-01-2022 15:05-0400 SaO2% (BldA) [Mass fraction] 99 % Shannan Webster Other [facility] Other 11-01-2022 15:05-0400 Systolic blood pressure 130 mm[Hg] Shannan Webster Other [facility] Other 03-05-2022 15:00-0500 Body height 162.56 cm Luma Chirinos Other [facility] Other 12-01-2021 09:55-0400 Blood Pressure Location Asuncion Lue [facility] 12-01-2021 09:55-0400 Diastolic blood pressure 89 mm[Hg] Asuncion Lue [facility] 12-01-2021 09:55-0400 Heart rate 81 /min Asuncion Lue [facility] 12-01-2021 09:55-0400 Systolic blood pressure 140 mm[Hg] Asuncion Lue [facility] 10-10-2021 10:15-0400 Body height 162.56 cm Espinoza Botello Other [facility] Other 10-10-2021 10:15-0400 Body mass index (BMI) [Ratio] 24.89 kg/m2 Espinoza Olexa Other [facility] Other 10-10-2021 10:15-0400 Body weight 65.77 kg Espinoza Olexa Other [facility] Other Encounters Encounter Date Encounter Type Care Provider Facility Start: 02-19-2024 ambulatory Asuncion M. Lue Facility:[facility] Start: 03-06-2023 End: 03-06-2023 ambulatory Andrea Wu Other [facility] Other Start: 03-06-2023 Telephone encounter Andrea Wu [facility] Start: 02-25-2023 End: 02-25-2023 ambulatory Andrea Wu Other [facility] Other Start: 02-25-2023 Telephone encounter Andrea Wu [facility] Start: 02-20-2023 End: 02-21-2023 ambulatory [facility]uncion Buchanan [facility] Start: 02-20-2023 End: 02-20-2023 Patient encounter procedure Asuncion MitchellJose Dewayne [facility] Start: 02-18-2023 End: 02-18-2023 ambulatory Andrea Wu Other [facility] Other Start: 02-18-2023 Office outpatient vi sit 15 minutes Andrea Ball [facility] Start: 02-05-2023 End: 02-05-2023 ambulatory Andrea Wu Other [facility] Other Start: 02-05-2023 Telephone encounter Andrea Ball [facility] Start: 01-31-2023 End: 01-31-2023 ambulatory Andrea Wu Other [facility] Other Start: 01-31-2023 Telephone encounter Andrea Wu [facility] Start: 01-29-2023 End: 01-29-2023 ambulatory Andrea Wu Other [facility] Other Start: 01-29-2023 Telephone encounter Andrea Ball [facility] Start: 01-25-2023 End: 01-25-2023 ambulatory Andrea Ball Other [facility] Other Start: 01-25-2023 Patient encounter procedure Andrea Ball [facility] Start: 01-25-2023 Telephone encounter Andrea Ball [facility] Start: 12-12-2022 End: 12-12-2022 ambulatory Andrea Ball Other [facility] Other Start: 12-12-2022 Office outpatient vi sit 15 minutes Andrea Ball [facility] Start: 11-07-2022 End: 11-07-2022 ambulatory Andrea Wu Other [facility] Other Start: 11-07-2022 Telephone encounter [facility] Start: 11-01-2022 End: 11-01-2022 ambulatory Shannan Webster Other [facility] Other Start: 11-01-2022 Office outpatient vi sit 25 minutes Shannan Webster [facility] Start: 06-27-2022 End: 06-28-2022 ambulatory DR JEROME ESPINOSA Facility:[facility] Start: 06-04-2022 End: 06-04-2022 ambulatory Andrea Wu Other [facility] Other Start: 06-04-2022 Telephone encounter Andrea Wu [facility] Start: 05-17-2022 End: 05-18-[address] CAMPOS SHAH Facility:[facility] Start: 04-26-2022 End: 04-27-[address] JERMOE ESPINOSA Facility:[facility] Start: 04-25-2022 End: 04-25-2022 ambulatory Andrea Wu Other [facility] Other Start: 04-25-2022 Telephone encounter [facility] Start: 04-10-2022 End: 04-10-2022 ambulatory Andrea Wu Other [facility] Other Start: 04-10-2022 Telephone encounter Andrea Wu [facility] Start: 04-07-2022 Encounter for preprocedural cardiovascular examination BASHIR [facility] Start: 04-07-2022 Encounter for preprocedural laboratory examination BASHIR [facility] Start: 04-06-2022 End: 04-06-2022 ambulatory Andrea Wu Other [facility] Other Start: 04-06-2022 Telephone encounter Andrea Wu [facility] Start: 04-05-2022 End: 04-05-[address] JEROME ESPINOSA Facility:[facility] Start: 04-02-2022 End: 04-03-2022 ambulatory BASHIR Richard DANIELLE Facility:[facility] Start: 04-02-2022 End: 04-03-2022 Encounter for preprocedural cardiovascular examination BASHIR DANIELLE Facility:[facility] Start: 03-28-2022 End: 03-29-[address] JEROME ESPINOSA Facility:[facility] Start: 03-20-2022 End: 03-21-[address] ANDREA WU Facility:[facility] Start: 03-12-2022 End: 03-12-[address] JEROME ESPINOSA Facility:[facility] Start: 03-05-2022 End: 03-05-2022 ambulatory Luma Chirinos Other [facility] Other Start: 03-05-2022 Office outpatient vi sit 15 minutes Luma Chirinso [facility] Start: 02-23-2022 ambulatory Asuncion Buchanan Facility:[facility] Start: 01-29-2022 End: 01-30-[address] ANDREA WU Facility:[facility] Start: 01-18-2022 Adult health examination Shannan Webster Other [facility] Other Start: 12-01-2021 End: 12-01-2021 Patient encounter procedure Asuncion Buchanan [facility] Start: 10-10-2021 End: 10-10-2021 ambulatory Espinoza Botello Other [facility] Other Start: 10-10-2021 Office outpatient vi sit 25 minutes Espinoza Botello [facility] Start: 10-10-2021 End: 10-10-2021 Patient encounter procedure MD Espinoza Botello Work Phone: [facility] Start: 10-05-2021 End: 10-05-2021 ambulatory Espinoza Botello Other [facility] [employer] [facility] Other Start: 10-05-2021 Telephone encounter Espinoza Botello [facility] Start: 10-02-2021 End: 10-03-[address] ANDREA WU Facility:[facility] Procedures Date Procedure Procedure Detail Performing Clinician Start: 10-10-2021 Plain X-ray of left shoulder MD Espinoza kidd Work Phone: Start: 09-07-2019 Colonoscopy Asuncion Lue Start: 09-07-2019 Esophagogastroduodenoscopy Asuncion Lue Start: 01-16-2015 Colonoscopy Asuncion Lue Comment on above: normal Start: 01-16-2015 Esophagogastroduodenoscopy Asuncion Lue Start: 08-17-2011 Esophagogastroduodenoscopy Asuncion Lue Start: 05-17-2011 Esophagogastroduodenoscopy Asuncion Lue Start: 06-16-2010 Laparoscopic cholecystectomy Asuncion Lue Start: 01-16-2010 Colonoscopy Asuncion Lue Bilateral cataracts (disorder) Asuncion Lue section Asuncion Lue Depression screening Shannan araujo Other Foot structure (body structure) Asuncion Lue Ligation of fallopian tube K athy Lue Repair of musculoten dinous cuff of shoulder Asuncion Lue Screening for malign ant neoplasm of breast Shannan Webster Other Screening for malign ant neoplasm of colon Shannan Webster Other Immunizations Immunization Date Immunization Notes Care Provider Adan valentine 12-31-2022 Flu Shot - Documentation Purposes Only Andrea Wu Other [facility] Other 12-31-2022 influenza virus vaccine, unspecified formulation Asuncion Lue [facility] 12-22-2021 SARS-CoV-2 (COVID-19 ) [id number] Asuncion Lue [facility] 12-18-2021 influenza virus vaccine, split virus (incl. purified surface antigen) Shannan Webster Other [facility] Other 12-18-2021 influenza virus vaccine, unspecified formulation Asuncion Lue [facility] 07-04-2021 SARS-CoV-2 (COVID-19 ) mRNA-[id number] vaccine Asuncion Lue [facility] 01-23-2021 SARS-CoV-2 (COVID-19 ) mRNA-1273 vaccine Asuncion Lue [facility] 11-23-2020 influenza virus vaccine, split virus (incl. purified surface antigen) Shannan Webster Other [facility] Other 11-23-2020 influenza virus vaccine, unspecified formulation Asuncion Lue [facility] 06-02-2020 SARS-CoV-2 (COVID-19 ) mRNA-1273 vaccine Asuncion Lue [facility] 05-05-2020 SARS-CoV-2 (COVID-19 ) mRNA-1273 vaccine Asuncion Lue [facility] 03-18-2020 SARS-CoV-2 (COVID-19 ) mRNA-6028 vaccine Asuncion Lue [facility] Comment on above: Result Comment: 3 sh ots to date 12-07-2019 influenza virus vaccine, split virus (incl. purified surface antigen) Shannan Webster Other [facility] Other 12-07-2019 influenza virus vaccine, unspecified formulation Asuncion Lue [facility] 01-05-2019 influenza virus vaccine, unspecified formulation Asuncion Lue [facility] 01-05-2019 pneumococcal polysaccharide vaccine, 23 valent Asuncion Lue [facility] 12-17-2018 influenza virus vaccine, unspecified formulation Asuncion Lue [facility] 12-19-2017 influenza virus vaccine, unspecified formulation Asuncion Lue [facility] 01-10-2017 influenza virus vaccine, split virus (incl. purified surface antigen) Shannan Webster Other [facility] Other 01-10-2017 influenza virus vaccine, unspecified formulation Asuncion Lue [facility] 01-10-2017 pneumococcal conjuga te vaccine, 13 valent Asuncion Lue [facility] 01-04-2016 influenza virus vaccine, unspecified formulation Asuncion Lue [facility] 01-04-2016 pneumococcal polysaccharide vaccine, 23 valent Asuncion Lue [facility] Payers Date Payer Category Payer Medicare [id number] 2.1 [id number] 1957 Unknown [id number] 2. [id number] 1952 Unknown [id number] 2.16.84 [id number] 1952 Unknown [id number] 2.16.84 [id number] 1952 Unknown [id number] 2.16.84 0.1.483130.3.579.2.593 1952 Unknown [id number] 2.16.84 0.1.562291.3.579.2.593 1952 Unknown [id number] 2.16.84 0.1.814827.3.579.2.593 1952 Unknown [id number] 2.16.84 0.1.431429.3.579.2.593 1952 Unknown [id number] 2.16.84 0.1.139442.3.579.2.593 1952 Unknown [id number] 2.16.84 0.1.886689.3.579.2.593 1952 Unknown [id number] 2.16.84 0.1.912253.3.579.2.593 1952 Unknown [id number] 2.16.84 0.1.894121.3.579.2.593 1952 Unknown [id number] 2.16.8 40.1.415940.3.579.2.727 1952 Unknown [id number] 2.16.8 40.1.042057.3.579.2.727 1952 Unknown [id number] 2.16.8 [id number] Self-pay Self Pay [id number] Unknown Luna LYN/BS [id number] Social History Date Type Detail Facility Unknown if ever smoked [facility] [employer] Other Sex Assigned At [facility] [employer] Other Start: 11-11-2018 End: 02-20-2023 Tobacco smoking status NHIS Never smoked tobacco (finding) [facility] Start: 1950 Sex Assigned At Female F [facility] Tobacco smoking status Never [facility] Medical Equipment Procedure Code Equipment Code Equipment Origin al Text Equipment Identifier Dates Arthroscopy, shoulder ANCHOR SUTURE FT III [id number] FDA Start: 11-11-2018 Functional Status Date Assessment Result Facility 02-20-2023 Functional Status N/A [facility] 12-01-2021 Functional Status N/A [facility] Clinical Notes 10-10-2021 to 03-06-2023 Note Date & Type Note Facility 03-06-2023 Evaluation note Encounter Date Diagnosis Assessment Notes Feb, Anemia (ICD-10 - D64.9) [facility] [employer] Other 12-11-2023 Evaluation note* Encounter Date Diagnosis Assessment Notes Treatment Notes Treatment Clinical Notes Feb, Moderate persistent asthma without complication (ICD-10 - J45.40) [facility] [employer] Other 12-06-2023 Hospital Discharge instructions Patient Education 02/20/2023 09:45:05 Pelvic Floor Dysfunction, Female Pelvic Floor Dysfunction, Female Pelvic floor dysfunction (PFD) is a condition that results when the group of muscles and connectivetissues that support the organs in the pelvis (pelvic floor muscles) do not work well. These muscles and their connections form a sling that supports the colon and bladder. In women, they also support the uterus. PFD causes pelvic floor muscles to be too weak, too tight, or both. In PFD, muscle movements are not coordinated. This may cause bowel or bladder problems. It may also cause pain. What are the causes? This condition may be caused by an injury to the pelvic area or by a weakening of pelvic muscles. This often results from and childbirth or other types of strain. In many cases, the exact cause is not known. What increases the risk? The following factors may make you more likely to develop this condition: Having chronic bladder tissue inflammation (interstitial cystitis). Being an older person. Being overweight. History of radiation treatment for cancer in the pelvic region. Previous pelvic surgery, such as removal of the uterus (hysterectomy). What are the signs or symptoms? Symptoms of this condition vary and may include: Bladder symptoms, such as: ?Trouble starting urination and emptying the bladder. ?Frequent urinary tract infections. ?Leaking urine when coughing, laughing, or exercising (stress incontinence). ?Having to pass urine urgently or frequently. ?Pain when passing urine. Bowel symptoms, such as: ?Constipation. ?Urgent or frequent bowel movements. ?Incomplete bowel movements. ?Painful bowel movements. ?Leaking stool or gas. Unexplained genital or rectal pain. Genital or rectal muscle spasms. Low back pain. Other symptoms may include: A heavy, full, or aching feeling in the vagina. A bulge that protrudes into the vagina. Pain during or after sex. How is this diagnosed? This condition may be diagnosed based on: Your symptoms and medical history. A physical exam. During the exam, your health care provider may check your pelvic muscles for tightness, spasm, pain, or weakness. This may include a rectal exam and a pelvic exam. In some cases, you may have diagnostic tests, such as: Electrical muscle function tests. Urine flow testing. X-ray tests of bowel function. Ultrasound of the pelvic organs. How is this treated? Treatment for this condition depends on the symptoms. Treatment options include: Physical therapy. This may include Kegel exercises to help relax or strengthen the pelvic floor muscles. Biofeedback. This type of therapy provides feedback on how tight your pelvic floor muscles are so that you can learn to control them. Internal or external massage therapy. A treatment that involves electrical stimulation of the pelvic floor muscles to help control pain (transcutaneous electrical nerve stimulation, or TENS). Sound wave therapy (ultrasound) to reduce muscle spasms. Medicines, such as: ?Muscle relaxants. ?Bladder control medicines. Surgery to reconstruct or support pelvic floor muscles may be an option if other treatments do not help. Follow these instructions at home: Activity Do your usual activities as told by your health care provider. Ask your health care provider if youshould modify any activities. Do pelvic floor strengthening or relaxing exercises at home as told by your physical therapist. Lifestyle Maintain a healthy weight. Eat foods that are high in fiber, such as beans, whole grains, and fresh fruits and vegetables. Limit foods that are high in fat and processed sugars, such as fried or sweet foods. Manage stress with relaxation techniques such as yoga or meditation. General instructions If you have problems with leakage: ?Use absorbable pads or wear padded underwear. ?Wash frequently with mild soap. ?Keep your genital and anal area as clean and dry as possible. ?Ask your health care provider if you should try a barrier cream to prevent skin irritation. Take warm baths to relieve pelvic muscle tension or spasms. Take [id number] and prescription medicines only as told by your health care provider. Keep all follow-up visits. How is this prevented? The cause of PFD is not always known, but there are a few things you can do to reduce the risk of developing this condition, including: Staying at a healthy weight. Getting regular exercise. Managing stress. Contact a health care provider if: Your symptoms are not improving with home care. You have signs or symptoms of PFD that get worse at home. You develop new signs or symptoms. You have signs of a urinary tract infection, such as: ?Fever. ?Chills. ?Increased urinary frequency. ?A burning feeling when urinating. You have not had a bowel movement in 3 days (constipation). Summary Pelvic floor dysfunction results when the muscles and connective tissues in your pelvic floor do not work well. These muscles and their connections form a sling that supports your colon and bladder. In women, they also support the uterus. PFD may be caused by an injury to the pelvic area or by a weakening of pelvic muscles. PFD causes pelvic floor muscles to be too weak, too tight, or a combination of both. Symptoms may vary from person to person. In most cases, PFD can be treated with physical therapies and medicines. Surgery may be an option if other treatments do not help. This information is not intended to replace advice given to you by your health care provider. Make sure you discuss any questions you have with your health care provider. Document Revised: 07/12/2021 Document Reviewed: 07/12/2021 [employer] Patient Education 2022 [employer]. 02/20/2023 09:44:59 Kegel Exercises Kegel Exercises Kegel exercises can help strengthen your pelvic floor muscles. The pelvic floor is a group of muscles that support your rectum, small intestine, and bladder. In females, pelvic floor muscles also help support the uterus. These muscles help you control the flow of urine and stool (feces). Kegel exercises are painless and simple. They do not require any equipment. Your provider may suggest Kegel exercises to: Improve bladder and bowel control. Improve sexual response. Improve weak pelvic floor muscles after surgery to remove the uterus (hysterectomy) or after , in females. Improve weak pelvic floor muscles after prostate gland removal or surgery, in males. Kegel exercises involve squeezing your pelvic floor muscles. These are the same muscles you squeezewhen you try to stop the flow of urine or keep from passing gas. The exercises can be done while sitting, standing, or lying down, but it is best to vary your position. Ask your health care provider which exercises are safe for you. Do exercises exactly as told by your health care provider and adjust them as directed. Do not begin these exercises until told by your health care provider. Exercises How to do Kegel exercises: 1.Squeeze your pelvic floor muscles tight. You should feel a tight lift in your rectal area. If youare a female, you should also feel a tightness in your vaginal area. Keep your stomach, buttocks, and legs relaxed. 2.Hold the muscles tight for up to 10 seconds. 3.Breathe normally. 4.Relax your muscles for up to 10 seconds. 5.Repeat as told by your health care provider. Repeat this exercise daily as told by your health care provider. Continue to do this exercise for at least 4 6 weeks, or for as long as told by your health care provider. You may be referred to a physical therapist who can help you learn more about how to do Kegel exercises. Depending on your condition, your health care provider may recommend: Varying how long you squeeze your muscles. Doing several sets of exercises every day. Doing exercises for several weeks. Making Kegel exercises a part of your regular exercise routine. This information is not intended to replace advice given to you by your health care provider. Make sure you discuss any questions you have with your health care provider. Document Revised: 07/13/2021 Document Reviewed: 07/13/2021 [employer] Patient Education 2022 [employer]. Follow Up Care 01/31/2022 08:50:25 With:Dewayne VILLEGAS, HUMBLE ArizmendiL, URO Address: [address], [place] [address] [phone] When: Unknown Comments:[facility]04[facility]2023 Evaluation note* Encounter Date Diagnosis Assessment Notes Treatment Notes Treatment Clinical Notes Feb, Moderate persistent asthma with acute exacerbation (ICD-10 - J45.41) Holding Breo for trial of Trelegy. Avoid dust, mold, fumes as much as possible. Steroid taper to break cycle of coughing Refer to Timing Machine Operator and Gym Manager when stable Feb, Non-seasonal allergi c rhinitis due to other allergic trigger (ICD-10 - J30.89) Continue FLonase NS Add Astepro NS Continue Claritin and Singulair Feb, Gastroesophageal reflux disease with esophagitis without hemorrhage (ICD-10 - K21.00) Diet instructions: Smaller portions, avoid eating and laying flat, avoid eating or drinking prior to bedtime. Weight loss. Continue PPI [facility] Other 11-21-2023 Evaluation note* Encounter Date Diagnosis Assessment Notes Treatment Notes Treatment Clinical Notes Jan, Age-related osteopor osis without current pathological fracture (ICD-10 - M81.0) Jan, Hypercholesteremia (ICD-10 - E78.00) [facility] Other 11-14-2023 Evaluation note* Encounter Date Diagnosis Assessment Notes Treatment Notes Treatment Clinical Notes Jan, Menopause (ICD-10 - Z78.0) [facility] Other 11-10-2023 Evaluation note* Encounter Date Diagnosis Assessment Notes Treatment Notes Treatment Clinical Notes Jan, Hypercholesteremia (ICD-10 - E78.00) [facility] Other 11-10-2023 Evaluation note* Encounter Date Diagnosis Assessment Notes Treatment Notes Treatment Clinical Notes Jan, Medicare annual wellness visit, subsequent (ICD-10 - Z00.00) Personalized health advice was given to the beneficiary including a written plan for screenings discussed and provided. Advanced care planning reviewed and/or information given as requested. Additional counseling was provided here today in regards to, [ ]. The above visit was performed by [ ], under direct supervision of [ ]. Document reviewed and amended by provider signed below. Jan, Primary hypertension (ICD-10 - I10) This patient is instructed to consume a healthy, low-fat, low-salt diet. They are also encouraged to continue exercise to achieve/maintain a normal BMI. Jan, Seasonal allergic rhinitis due to pollen (ICD-10 - J30.1) Continue medical treatment Instructed on avoidance of dust, smoke and allergens. Jan, Mild persistent asth ma, uncomplicated (ICD-10 - J45.30) Stable symptoms w/ intermittent use of NIKO. ER visit last month for AE but much improved. Offered PFT and referral to Gym Manager. Jan, Autoimmune thyroidit is (ICD-10 - E06.3) Clinically euthyroid, TSH yearly Jan, Other specified hypothyroidism (ICD-10 - E03.8) Jan, Vitamin D deficiency (ICD-10 - E55.9) Healthy diet, continue supplements. Check Vit D level Jan, Screening mammogram for breast cancer (ICD-10 - Z12.31) Instructed patient on monthly SBE and yearly mammograms. Jan, High risk medication use (ICD-10 - Z79.899) Check labs: ALT, CBC Jan, Hypercholesteremia (ICD-10 - E78.00) Instructed on diet and exercise with continued statin therapy.Discussed the beneficial effects of lowering cholesterol in reducing the risk for cerebrovascular and cardiovascular disease. Jan, Age-related osteoporosis without current pathological fracture (ICD-10 - M81.0) Jan, Gastroesophageal ref lux disease with esophagitis without hemorrhage (ICD-10 - K21.00) Jan, LORENZO (generalized anxiety disorder) (ICD-10 - F41.1) [facility] Other 09-27-2023 Evaluation note* Encounter Date Diagnosis Assessment Notes Treatment Notes Treatment Clinical Notes Nov, Moderate persistent asthma with acute exacerbation (ICD-10 - J45.41) Reviewed medication - continue LABA/ICS and NIKO - continue Singulair, Claritin and Flonase Suggested short course of Steroids and antibiotics. Discussed use of LAMA in combination of what she is presently taking CXR if no improvement [facility] Other 08-23-2023 Evaluation note* Encounter Date Diagnosis Assessment Notes Treatment Notes Treatment Clinical Notes Oct, Mild persistent asthma, uncomplicated (ICD-10 - J45.30) [facility] Other 08-17-2023 Evaluation note* Encounter Date Diagnosis Assessment Notes Treatment Notes Treatment Clinical Notes Oct, Bronchitis (ICD-10 - J40) No testing performed today. Discussed diagnosis with patient in detail. Advised patient that cough may linger for 3 weeks. Will treat today with antibiotic. Reviewed allergies and recent antibiotic use. Advised to take medications as prescribed, reviewed side effects of steroid, take with food and plenty of water, finish entire course. Encouraged supportive care as directed, push fluids and rest, may use Tylenol as needed for fever/discomfort, cool mist humidifier. May use Tessalon Perles as needed. Patient to follow up with PCP in 2-3 days. Immediate eval if SOB, difficulty breathing, chest pain, dizziness, or other concerning symptoms. Patient verbalizes understanding and is agreeable to treatment plan [facility] Other 04-12-2023 NotePROCEDURE: XR FOOT RT MIN 3 VIEWS HISTORY: Pain in right foot COMPARISON: XR foot right 05/17/2022 FINDINGS: BONES:Increasing density at fracture line at base of fifth metatarsal. Stable longitudinally placed screw within fifth metatarsal. SOFT TISSUES:Mild lateral soft tissue swelling. EFFUSION:None visible. OTHER: Negative. IMPRESSION: 1. Stable alignment and ongoing bone healing of fifth metatarsal fracture. Electronically authenticated by: JEROME ESPINOSA Date: 2022-06-27 15:36[facility]03-02-2023 NotePROCEDURE: XR FOOT RT MIN 3 VIEWS COMPARISON: 04/26/2022 HISTORY: Pain in right foot FINDINGS: BONES:Stable transverse fracture base of the fifth metatarsal with internal fixation utilizing a single screw. Stable lucency with no bone formation. Stable degenerative changes most significant at the first metatarsal-phalangeal joint. Moderate enthesopathic spurring of the calcaneus SOFT TISSUES:Negative. No visible soft tissue swelling. EFFUSION:None visible. OTHER: Negative. IMPRESSION: Stable fifth metatarsal fracture with internal fixation Electronically authenticated by: CAMPOS SHAH Date: 2022-05-17 16:27[id number] NotePROCEDURE: XR FOOT RT MIN 3 VIEWS HISTORY: Pain in right foot COMPARISON: XR foot right 04/05/2022 FINDINGS: BONES:Surgical repair of base of fifth metatarsal fracture via a longitudinally placed lag screw. No appreciable hardware fracture or loosening. Normal alignment of bone. No appreciable callus formation at this time. SOFT TISSUES:Mild lateral soft tissue swelling. Skin kendy have been removed. EFFUSION:None visible. OTHER: Negative. IMPRESSION: 1. Stable surgical changes without evidence of hardware failure or change in alignment. Electronically authenticated by: JEROME ESPINOSA Date: 2022-04-26 09:37[facility] [id number] NotePROCEDURE: XR FOOT RT MIN 3 VIEWS HISTORY: Pain COMPARISON: XR foot right 04/05/2022 intraoperative images. FINDINGS: BONES:Fixation of right foot base of fifth metatarsal fracture via a cyst single longitudinally placed lag screw. Fracture fragment is in normal alignment. SOFT TISSUES:Mild soft tissue swelling. Images were obtained through cast material. EFFUSION:None visible. OTHER: Negative. IMPRESSION: 1. Open reduction and internal fixation of fifth metatarsal fracture. Electronically authenticated by: JEROME ESPINOSA Date: 2022-04-05 14:43[facility]01-19-2023 NotePROCEDURE: XR FOOT RT 2V HISTORY: Pain COMPARISON: XR foot right 03/28/2022 FINDINGS: BONES:Multiple intraoperative spot fluoroscopic images demonstrate placement of a lag screw longitudinally within the base of the fifth metatarsal securing the proximal metaphyseal fracture. SOFT TISSUES:Expected intraoperative findings. EFFUSION:None visible. OTHER: Negative. IMPRESSION: 1. Intraoperative fixation of base of right fifth metatarsal fracture. Electronically authenticated by: JEROME ESPINOSA Date: 2022-04-05 14:41[facility]01-11-2023 NotePROCEDURE: XR FOOT RT MIN 3 VIEWS HISTORY: Pain in right foot COMPARISON: XR foot right 03/12/2022 FINDINGS: BONES:Nondisplaced fracture at base of fifth metatarsal with increased lucency of the fracture line consistent with bone resorption as part of early healing process. SOFT TISSUES:Mild lateral soft tissue swelling. EFFUSION:None visible. OTHER: Negative. IMPRESSION: 1. Stable alignment and suspected changes of early bone healing involving base of fifth metatarsal fracture. Electronically authenticated by: JEROME ESPINOSA Date: 2022-03-28 10:17[id number] NotePROCEDURE: XR FOOT RT MIN 3 VIEWS HISTORY: Pain in right foot ; lateral foot pain, rolled ankle COMPARISON: None. FINDINGS: BONES:Transverse, nondisplaced fracture line through the base of the fifth metatarsal at the diametaphyseal junction. SOFT TISSUES:No visible soft tissue swelling. EFFUSION:None visible. OTHER: Negative. IMPRESSION: 1. Acute, nondisplaced fracture involving base of right fifth metatarsal. Electronically authenticated by: JEROME ESPINOSA Date: 2022-03-12 09:46[facility]12-19-2022 Evaluation note* Encounter Date Diagnosis Assessment Notes Treatment Notes Treatment Clinical Notes Feb, Acute pain of left shoulder (ICD-10 - M25.512) Feb, Tear of left supraspinatus tendon (ICD-10 - M75.102) A 1/1cc marcaine / kenalog cortisone injection was performed into the subacromial space under sterile technique. Patient tolerated the injection well with no adverse reaction. [facility] Other 09-16-2022 Hospital Discharge instructions Patient Education 12/01/2021 10:11:29 Urinary Incontinence Urinary Incontinence Urinary incontinence refers to a condition in which a person is unable to control where and when topass urine. A person with this condition will urinate when he or she does not mean to (involuntarily). What are the causes? This condition may be caused by: Medicines. Infections. Constipation. Overactive bladder muscles. Weak bladder muscles. Weak pelvic floor muscles. These muscles provide support for the bladder, intestine, and, in women,the uterus. Enlarged prostate in men. The prostate is a gland near the bladder. When it gets too big, it can pinch the urethra. With the urethra blocked, the bladder can weaken and lose the ability to empty properly. Surgery. Emotional factors, such as anxiety, stress, or post-traumatic stress disorder (PTSD). Pelvic organ prolapse. This happens in women when organs shift out of place and into the vagina. This shift can prevent the bladder and urethra from working properly. What increases the risk? The following factors may make you more likely to develop this condition: Older age. Obesity and physical inactivity. and childbirth. Menopause. Diseases that affect the nerves or spinal cord (neurological diseases). Long-term (chronic) coughing. This can increase pressure on the bladder and pelvic floor muscles. What are the signs or symptoms? Symptoms may vary depending on the type of urinary incontinence you have. They include: A sudden urge to urinate, but passing urine involuntarily before you can get to a bathroom (urge incontinence). Suddenly passing urine with any activity that forces urine to pass, such as coughing, laughing, exercise, or sneezing (stress incontinence). Needing to urinate often, but urinating only a small amount, or constantly dribbling urine (overflow incontinence). Urinating because you cannot get to the bathroom in time due to a physical disability, such as arthritis or injury, or communication and thinking problems, such as Alzheimer disease (functional incontinence). How is this diagnosed? This condition may be diagnosed based on: Your medical history. A physical exam. Tests, such as: ?Urine tests. ?X-rays of your kidney and bladder. ?Ultrasound. ?CT scan. ?Cystoscopy. In this procedure, a health care provider inserts a tube with a light and camera (cystoscope) through the urethra and into the bladder in order to check for problems. ?Urodynamic testing. These tests assess how well the bladder, urethra, and sphincter can store and release urine. There are different types of urodynamic tests, and they vary depending on what the test is measuring. To help diagnose your condition, your health care provider may recommend that you keep a log of when you urinate and how much you urinate. How is this treated? Treatment for this condition depends on the type of incontinence that you have and its cause. Treatment may include: Lifestyle changes, such as: ?Quitting smoking. ?Maintaining a healthy weight. ?Staying active. Try to get 150 minutes of moderate-intensity exercise every week. Ask your health care provider which activities are safe for you. ?Eating a healthy diet. ?Avoid high-fat foods, like fried foods. ?Avoid refined carbohydrates like white bread and white rice. ?Limit how much alcohol and caffeine you drink. ?Increase your fiber intake. Foods such as fresh fruits, vegetables, beans, and whole grains are healthy sources of fiber. Pelvic floor muscle exercises. Bladder training, such as lengthening the amount of time between bathroom breaks, or using the bathroom at regular intervals. Using techniques to suppress bladder urges. This can include distraction techniques or controlled breathing exercises. Medicines to relax the bladder muscles and prevent bladder spasms. Medicines to help slow or prevent the growth of a man's prostate. Botox injections. These can help relax the bladder muscles. Using pulses of electricity to help change bladder reflexes (electrical nerve stimulation). For women, using a medical instrument cable fabricator to prevent urine leaks. This is a small, tampon-like, disposable device that is inserted into the urethra. Injecting collagen or carbon beads (bulking agents) into the urinary sphincter. These can help thicken tissue and close the bladder opening. Surgery. Follow these instructions at home: Lifestyle Limit alcohol and caffeine. These can fill your bladder quickly and irritate it. Keep yourself clean to help prevent odors and skin damage. Ask your doctor about special skin creams and cleansers that can protect the skin from urine. Consider wearing pads or adult diapers. Make sure to change them regularly, and always change them right after experiencing incontinence. General instructions Take [id number] and prescription medicines only as told by your health care provider. Use the bathroom about every 3 4 hours, even if you do not feel the need to urinate. Try to empty your bladder completely every time. After urinating, wait a minute. Then try to urinate again. Make sure you are in a relaxed position while urinating. If your incontinence is caused by nerve problems, keep a log of the medicines you take and the times you go to the bathroom. Keep all follow-up visits as told by your health care provider. This is important. Contact a health care provider if: You have pain that gets worse. Your incontinence gets worse. Get help right away if: You have a fever or chills. You are unable to urinate. You have redness in your groin area or down your legs. Summary Urinary incontinence refers to a condition in which a person is unable to control where and when topass urine. This condition may be caused by medicines, infection, weak bladder muscles, weak pelvic floor muscles, enlargement of the prostate (in men), or surgery. The following factors increase your risk for developing this condition: older age, obesity, and childbirth, menopause, neurological diseases, and chronic coughing. There are several types of urinary incontinence. They include urge incontinence, stress incontinence, overflow incontinence, and functional incontinence. This condition is usually treated first with lifestyle and behavioral changes, such as quitting smoking, eating a healthier diet, and doing regular pelvic floor exercises. Other treatment options include medicines, bulking agents, medical devices, electrical nerve stimulation, or surgery. This information is not intended to replace advice given to you by your health care provider. Make sure you discuss any questions you have with your health care provider. Document Released: 04/11/2005 Document Revised: 03/14/2018 Document Reviewed: 06/13/2017 [employer] Patient Education 2020 [employer]. Follow Up Care 10/20/2021 08:23:44 With:Dewayne VILLEGAS, RANDAL Arizmendi, URO Address: When: Unknown [facility] 2022 Evaluation note* Encounter Date Diagnosis Assessment Notes Treatment Notes Treatment Clinical Notes Sep, Acute pain of left shoulder (ICD-10 - M25.512) Sep, Tear of left supraspinatus tendon (ICD-10 - M75.102) This appears to be pain secondary to a partial rotator cuff tear. We discussed and demonstrated gentle motion exercise and rotator cuff strengthening exercise. Discussed the use of non-steroidal anti-inflammatory medication. At this point the patient will try to live with the condition, understanding a rotator cuff tear can worsen and enlarge with time. A marcaine / kenalog cortisone injection was performed into the subacromial space under sterile technique. Patient tolerated the injection well with no adverse reaction. [facility] Other Evaluation + Plan note Future Appointments Appointment Date:01/31/2022 08:00:00 AM Scheduled Provider:Asuncion Buchanan MD Location:[facility] Appointment Type:URO Office Visit [facility] Evaluation + Plan note Future Appointments Appointment Date:02/19/2024 08:00:00 AM Scheduled Provider:Asuncion Buchanan MD Location:[facility] Appointment Type:URO Office Visit [facility] evaluation noteNo InformationNort [employer] Other Evaluation noteNo assessment information available [facility] Work Phone: [facility]isk[facility] general Narrative - Reported* Type Description Date Medical History high cholestrol Medical History graves disease Medical History asthma Medical History ulcer Medical History migranes and tension headaches Medical History arthritis Medical History osteoporosis Surgical History d and c Surgical History c sections Surgical History torn right wrist cartlige Surgical History nuclear med to kill thyroid Surgical History colonoscopy and egd Surgical History gall bladder removed Surgical History tubal ligation Surgical History rotator cuff and bicep repair 0 10/2018 Hospitalization History see above Hospitalization History blood transfusion from [facility] [employer] Other history general Narrative - Reported* Type Description Date Medical History high cholestrol Medical History graves disease Medical History asthma Medical History ulcer Medical History migranes and tension headaches Medical History arthritis Medical History osteoporosis Surgical History d and c Surgical History c sections Surgical History torn right wrist cartlige Surgical History nuclear med to kill thyroid Surgical History colonoscopy and egd Surgical History gall bladder removed Surgical History tubal ligation Surgical History rotator cuff and bicep repair 0 10/2018 Surgical History ORIF right 5th MT fracture 04/06 Hospitalization History see above Hospitalization History blood transfusion from [facility] [employer] Other Hiseplr general Narrative - Reported* Type Description Date Medical History high cholestrol Medical History graves disease Medical History asthma Medical History ulcer Medical History migranes and tension headaches Medical History arthritis Medical History osteoporosis Medical History Right metatarsal fracture - 04/06 22 Surgical History d and c Surgical History c sections Surgical History torn right wrist cartlige Surgical History nuclear med to kill thyroid Surgical History colonoscopy and egd Surgical History gall bladder removed Surgical History tubal ligation Surgical History rotator cuff and bicep repair 0 10/2018 Surgical History ORIF right 5th MT fracture 04/06 Hospitalization History see above Hospitalization History blood transfusion from [email or web address] Other History general Narrative - Reported* Type Description Date Medical History high cholestrol Medical History graves disease Medical History asthma Medical History ulcer Medical History migranes and tension headaches Medical History arthritis Medical History osteoporosis Medical History Right metatarsal fracture - 04/06 22 Surgical History d and c Surgical History c sections Surgical History torn right wrist cartlige Surgical History nuclear med to kill thyroid Surgical History colonoscopy and egd Surgical History gall bladder removed Surgical History tubal ligation Surgical History rotator cuff and bicep repair 0 10/2018 Surgical History ORIF right 5th MT fracture 04/06 Surgical History cataract b/l Hospitalization History see above Hospitalization History blood transfusion from [email or web address] Other History general Narrative - Reported* Type Description Date Medical History high cholestrol Medical History graves disease Medical History asthma Medical History ulcer Medical History migranes and tension headaches Medical History arthritis Medical History osteoporosis Medical History Right metatarsal fracture - 04/06 22 Surgical History d and c Surgical History c sections Surgical History torn right wrist cartlige Surgical History nuclear med to kill thyroid Surgical History EGD, Colonoscopy 2020 Surgical History gall bladder removed Surgical History tubal ligation Surgical History rotator cuff and bicep repair 0 10/2018 Surgical History ORIF right 5th MT fracture 04/06 Surgical History cataract b/l Hospitalization History see above Hospitalization History blood transfusion from [email or web address] Other Hospital course Narrative No data available for this section [facility] [employer] Progress note No data available for this section [facility] [employer] Summary Purpose Family History Relationship Condition Age at Onset Recorded Date/T margaret Not Specified Malignant neoplasm of lung Unknown Malignant neoplasm of pancreas Unknown Diabetes mellitus Unknown father Pneumonia Unknown Chronic headache disorder Unknown sister Malignant neoplasm of breast Unknown brother Acute poliomyelitis Unknown brother Myocardial infarction Unknown brother Malignant neoplasm of colon Unknown Advance Directives Advance Directive Response Recorded Date/ Time Advance Directives No September 08 8:51am Chief Complaint and Reason for Visit Chief Complaint M25.512 Additional Source Comments REASON FOR VISIT (unrecogniz ed section and content) Left Shoulder PainMRINo Info rmationNo Informationprescription refillRecheck Left ShoulderNo InformationCough, sore throatNo InformationASTHMA, ALLERGIES ALL SUMMAR LONGNo InformationwellnessOrdermamm/lab resultsRefillcough/wheezingUpdateRepeat Labs INFORMATION SOURCE (unrecogn ized section and content) DATE CREATED AUTHOR 10/11/2021 [facility] DATE CREATED AUTHOR AUTHOR'S ORGANIZ ATION 07/02/2022 [facility] DATE CREATED AUTHOR AUTHOR'S ORGANIZ ATION 02/22/2023 [facility] Care Teams (unrecognized sec tion and content) Team Status: Inactive Member Role Status Dates Espinoza Botello MD Attending Provider Active Goals (unrecognized section and content) Goals may be documented in a n alternate section FOR RECORDS PERTAINING TO PATIENTS WHO ARE OR HAVE BEEN ENROLLED IN A CHEMICAL DEPENDENCY/SUBSTANCEABUSE PROGRAM, SOME INFORMATION MAY BE OMITTED. This clinical summary was aggregated from multiple sources. Caution should be exercised in using it in the provision of clinical care. This summary normalizes information from multiple sources, and as a consequence, information in this document may materially change the coding, format and clinical context of patient data. In addition, data may be omitted in some cases. CLINICAL DECISIONS SHOULD BE BASED ON THE PRIMARY CLINICAL RECORDS. [facility] [employer] [facility]. provides no warranty or guarantee of the accuracy or completeness of information in this document.
[2023-03-08 06:45] LABS: Basophils Percent Auto 0.4 % (0.2-2.0); Eosinophils Absolute Auto 0.5 10^3/uL (0.0-0.7); Hematocrit 32.9 % (36.0-48.0); Hemoglobin 9.9 g/dL (12.0-16.0); Immature Granulocytes Abs Auto 0.02 10^3/uL (0.00-0.03); Immature Granulocytes Pct Auto 0.3 % (0.0-0.5); Lymphocytes Absolute Auto 1.9 10^3/uL (1.2-3.8); Lymphocytes Percent Auto 24.4 % (20.5-60.0); Mean Corpuscular HGB Conc 30.1 g/dL (29.9-35.2); Mean Corpuscular Hemoglobin 24.8 pg (26.7-34.0); Mean Corpuscular Volume 82.3 fL (81.0-99.0); Mean Platelet Volume 9.4 fL (9.5-13.5); Monocytes Absolute Auto 0.6 10^3/uL (0.3-0.8); Monocytes Percent Auto 7.7 % (1.7-12.0); Neutrophils Absolute Auto 4.6 10^3/uL (1.4-6.5); Neutrophils Percent Auto 60.2 % (43.0-75.0); Platelet Count 376 10^3/uL (150-450); Red Cell Distribution Width 15.9 % (11.0-15.0); White Blood Count 7.6 10^3/uL (4.0-11.0)
[2023-03-08 09:02] LABS: Percent Iron Saturation 9.1 %
[2023-05-06 14:36] LABS: Reticulocyte Count 1.25 % (0.60-3.10)
== END 2023-03-08 06:31 | disposition home or self-care (01) ==
LOC: LAB 06:30
PROVIDERS: PCP Internal Medicine; Visit Provider Internal Medicine
DX: D64.9 Anemia, unspecified (principal)
CPT/HCPCS: 36415; 82607; 82728; 82746; 83540; 83550; 85025; 85045

== ENCOUNTER 2023-04-11 06:30 | Outpatient (OUT) | payer MEDICARE, OTHER, SELFPAY ==
--- OUTSIDE RECORDS SUMMARY | 2023-04-11 06:33 | XMS_ITS | CCD ---
Author Name Unknown Address [address] [place] [address] Organization [facility] Care Team Providers Care Motor Checker Name Role Phone Espinoza Botello Unavailable ANDREA WU Primary Care Physician [phone] Andrea Wu Unavailable Luma Chirinos Unavailable PABLO, [...] CROWELL Admitting Unavailable KIKI CROWELL Consulting Unavailable Shannan Webster Unavailable Asuncion Buchanan Attending Unavailable Asuncion Buchanan Attending Unavailable Asuncion Buchanan Attending Unavailable MANE ARCE Attending Unavailable ANA VALIENTE Attending Unavailable Allergies Allergy Classification Reported Allergen(s) Allergy Type Date of Onset Reaction(s) Facility (20 sources) Amoxicillin Drug Allergy 10-22-19 19 Rash [facility] (20 sources) Sulfacetamide / Sulfur Drug Allergy Unknown [facility] Other (20 sources) idp dye Propensity to adverse reactions Unknown [facility] Other (1 source) Sulfonamides (Antibiotic) Allergy to substance 10-22-19 Unknown Reaction [facility] (1 source) wasp venom Allergy to substance 10-22-19 19 Anaphylaxis [facility] (1 source) bee venom protein (honey bee) Allergy to substance 10-22-19 19 Anaphylaxis [facility] (1 source) Iodinated Contrast Media Allergy to substance 10-22-19 19 Anaphylaxis [facility] (3 sources) Bee/Wasp/Ant venom; Translations: [Bee Stings] Drug allergy Dyspnea (finding), Weal (disorder) [facility] [place] (3 sources) Contrast media; Translations: [contrast media (iodine-based)] Drug allergy Dyspnea (finding), Weal (disorder) [facility] [place] (14 sources) Iodine; Translations: [iodine] Drug Allergy Unknown (qualifier value) [facility] [place] (3 sources) Penicillin; Translations: [penicillin] Drug Allergy Eruption of skin (disorder) [facility] [place] (3 sources) Sulfonamides (Antibiotic); Translations: [sulfa drugs] Drug allergy Angioedema (disorder) [facility] [place] (1 source) bee venom Drug allergy (disorder) [facility] (1 source) Iodine (And Iodine Containting Drugs) Drug allergy (disorder) 01-19-20 15 [facility] (1 source) Penicillins Drug allergy (disorder) [facility] (1 source) Sulfonamides (Antibiotic) Drug allergy (disorder) 03-18-18 56 [facility] (2 sources) Iodine / Sodium Iodide Drug Allergy Unknown [facility] Other (13 sources) Substance with penicillin structure and antibacterial mechanism of action (substance) Drug allergy Unknown [facility] Other (13 sources) Substance with sulfonamide structure and antibacterial mechanism of action (substance) Drug allergy Unknown [facility] Other (2 sources) Allergies Reconciled Propensity to adverse reactions Unknown [facility] Other (2 sources) patient allergy list reviewed by nurse or physicia Propensity to adverse reactions 09-25-19 Comment:Done [facility] Other Medications Current Medications Medication Drug Class(es) [...] PO As Directed October 21, 2018 12:00am [id number] 200 actuat albuterol 0.09 mg/actuat metered dose inhaler (8 sources) beta2-Adrenergic Agonist Start: 09-02-2019 take 2 [...] days Active amLODIPine 5 mg oral tablet (11 sources) Dihydropyridine Calcium Channel Bebe Start: 02-20-2023 [...] hydrochloride 0.206 mg/actuat metered dose nasal spray (4 sources) Histamine-1 Receptor Antagonist Start: 02-18-2023 take [...] mg/ml / guaiFENesin 20 mg/ml oral solution (10 sources) Opioid Agonist Start: 02-25-2023 take 10 [...] Dec, Not-Taking cycloSPORINE 0.5 mg/ml ophthalmic suspension (20 sources) Calcineurin Inhibitor Immunosuppressant Start: 10-21-2018 take [...] apply pea sized amount to urethra 2x/wk, [facility], 158, cm, 02/20/23 8:48:00 EST, Height/Length Dosing, 68.5, kg, 02/20/23 8:48:00 EST, Weight Dosing Start Date: 02/20/23 Status: Ordered Start: 04-13-2021 estradiol 0.1 mg/g vaginal cream See Instructions, Apply pea sized amount to external urethral 3 times a week for 2 weeks (at bedtime), then twice a week after for maintenance, # 42.5 gm, Refills(s) 1, Pharmacy: [id number], [address], cm, 04/13/21 9:47:00 EST, Height/Length Do... Start Date: 04/13/21 Status: Ordered Start: 10-21-2018 End: 10-21-2018 Estradiol (Yuvafem) 10 mcg T ablet Active 10 MCG TABLET Twice a Week October 21, 2018 12:00am famotidine 20 mg oral tablet (11 sources) Histamine-2 Receptor Antagonist Start: 02-20-2023 take 1 mg by mouth twice daily famotidine 20 mg Tab mg tab(s), Oral, BID, Refills(s) 0 Start Date: 02/20/23 Status: Ordered take 1 tablet by grzegorz once daily at bedtime Famotidine 20 MG TAKE 1 TABLET AT BEDTIM E Orally Once a day for 90 days Active fluticasone propionate 0.05 mg/actuat metered dose nasal spray (20 sources) Corticosteroid Start: 09-02-2019 fluticasone 0. 05 mg/inh Nasal [place] 2 spray(s), Nasal, Daily, Refill(s) 0 Start [...] / vilanterol 0.025 mg/actuat dry powder inhaler (4 sources) Anticholinergic, Corticosteroid, beta2-Adrenergic Agonist Start: 02-25-2023 take 1 puff(s) by inhalation once daily Trelegy Ellipta 100-62.5-25 MCG/ACT 1 puff Inhalation Once a day for 90 days Feb, Active Fluticasone Furoate-Vilanterol (20 sources) Corticosteroid, beta2-Adrenergic Agonist Start: 10-21-2018 take [...] Inhalation daily Active fluticasone 0.05 mg/inh Nasal [place] (1 source) Start: 09-02-2019 fluticasone 0.05 mg/inh Nasal [place] 2 spray(s), Nasal, Daily, Refill(s) 0 Start Date: 09/02/19 Status: Ordered LORazepam 0.5 mg oral tablet (10 sources) Benzodiazepine Start: 01-25-2023 LORazepam 0.5 MG [...] Daily, # 30 tab(s), Refills(s) 6, Pharmacy: [id number], 158, cm, 12/01/21 9:55:00 EDT, Height/Length Dosing, 68, kg, 12/01/21 9:55:00 EDT, Weight Dosing Start Date: 12/01/21 Status: Ordered montelukast 10 mg oral tablet (10 sources) Leukotriene Receptor Antagonist Start: 12-26-2022 take [...] pantoprazole 40 mg delayed release oral tablet (15 sources) Proton Pump Inhibitor Start: 12-11-2019 take 1 tablet by mouth once daily Pantoprazole [address] Tab 40 mg = 1 tab(s), Oral, Daily, # 90 tab(s), Refills(s) 1, Pharmacy: [place] [id number] [address] [facility], 154.9, cm, 12/11/19 9:26:00 EDT, Height/Length Dosing, 70.2, kg, 12/11/19 9:26:00 EDT, Weight Dosing Start Date: 12/11/19 Status: Ordered polysaccharide iron complex 150 mg oral capsule (2 sources) Start: 03-08-2023 take 1 capsule by mouth every other day Ferrex 150 150 MG 1 capsule Orally qod for 30 days Feb, Active predniSONE 20 mg oral tablet (20 sources) [...] Not-Taking/PRN ProAir HFA 108 (90 Base) MCG/ACT (18 sources) take 2 puff(s) by in halation [...] ellipta 200-62.5-25 mcg/act aerosol powder breath activated (4 sources) Start: 02-18-2023 take 1 puff(s) by [...] Oct, Not-Taking/PRN benzonatate 100 mg oral capsule (13 sources) Non-narcotic Antitussive Start: 11-01-2022 take 1 [...] 2018 12:00am take 1 tablet by grzegorz once daily Levothyroxine Sodium 100 MCG TAKE 1 TABLET DAILY ON AN EMPTY STOMACH. (REPLACING 88MCG) Orally Once a day for 90 days Active Levothyroxine So dium Active 12 hr loratadine 5 mg / pseudoephedrine sulfate 120 mg extended release oral tablet (6 sources) alpha-Adrenergic Agonist Start: 04-25-2022 take 5-120 [...] 2018 12:00am metroNIDAZOLE 0.0075 mg/mg topical gel (20 sources) Nitroimidazole Antimicrobial metroNIDAZOLE 0.75 % 1 [...] infection., # 30 cap(s), Refills(s) 3, Pharmacy: [facility], 158, cm, 02/20/23 8:48:00 EST, Height/Length Dosing, 68.5, kg, 02/20/23 8:48:00 EST, Weight Dosing Start Date: 02/20/23 Status: Ordered Start: 12-01-2021 Macrobid 100 m g Cap 100 mg = 1 cap(s), Oral, As Directed, take 1 tablet within 1 hour after intercourse to prevent infection., # 30 cap(s), Refills(s) 1, Pharmacy: [facility] #[id number], 158, cm, 12/01/21 9:55:00 EDT, Height/Length Dosing, [...] Urticaria; Translations: [Unspecified urticaria] Episodic Anxiety disorders (11 sources) Generalized anxiety disorder; Translations: [Generalized anxiety disorder] Chronic Asthma (20 sources) Asthma; Translations: [Mild persistent asthma] Onset: 5 04-12-2021 Chronic Asthma (1 source) Asthma; Translations: [Asthma, unspecified, unspecified status] Onset: 6 Cataract (2 sources) Bilateral cataracts 09-04-2019 Chronic Chronic obstructive pulmonary disease and bronchiectasis (1 source) Bronchitis, not specified as acute or chronic Episodic Deficiency and other anemia (2 sources) Iron deficiency anemia due to blood loss; Translations: [Iron deficiency anemia secondary to blood loss (chronic)] Chronic Deficiency and other anemia (2 sources) Iron deficiency anemia secondary to blood loss (chronic) Chronic Deficiency and other anemia (1 source) Anemia, unspecified Episodic Disorders of lipid metabolism (20 sources) Hyperlipidemia; Translations: [Pure hypercholesterolemia, unspecified] Onset: 8 08-31-2019 Chronic Disorders of teeth and jaw (2 sources) Periapical abscess without sinus tract; Translations: [Periapical abscess without sinus] Episodic Esophageal disorders (14 sources) Gastroesophageal reflux disease; Translations: [Esophageal reflux [...] Translations: [Nausea] Onset: 6 Episodic Nutritional deficiencies (11 sources) Vitamin D deficiency; Translations: [Vitamin D deficiency, unspecified] Chronic Osteoarthritis (20 sources) Arthritis of acromioclavicular joint; Translations: [Primary osteoarthritis, right shoulder] Onset: 7 04-12-2021 Chronic Osteoporosis (15 sources) Age-related osteoporosis without current pathological fracture; Translations: [Primary osteoporosis] Onset: 3 Chronic Other aftercare (1 source) long term care phlebotomist (current) use of aspirin; Translations: [PYTHON PROGRAMMER CURRENT USE OF ASPIRIN] Onset: 3 Episodic Other aftercare (3 sources) 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 (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 therapy; Translations: [OTH SKILLED NURSING CURRENT DRUG THERAPY] Onset: 2 Episodic Other [...] left thigh] Episodic Other connective tissue disease (20 sources) Supraspinatus tear; Translations: [Unspecified rotator cuff [...] Onset: 3 Episodic Other nervous system disorders (20 sources) Chronic pain; Translations: [Other chronic pain] [...] Onset: 6 Episodic Other upper respiratory disease (14 sources) Allergic rhinitis due to pollen; Translations: [Allergic rhinitis due to pollen] 08-31-2019 Chronic Other upper respiratory disease (2 sources) Seasonal allergic rhinitis; Translations: [Other seasonal allergic rhinitis] Onset: 8 Chronic Other upper respiratory disease (6 sources) Allergic rhinitis; Translations: [Allergic rhinitis, unspecified] [...] foot; Translations: [PAIN IN RIGHT FOOT] Onset: 03-12-2022 Episodic Other connective tissue disease (1 source) [...] Urnls Dip Stick Auto w/o Microscopy POC [id number] Your Care Team Attending Physician - Asuncion [...] Tab) fluticasone nasal (fluticasone 0.05 mg/inh Nasal [place]) fluticasone/umeclidinium/aiden nterol (Trelegy Ellipta 200 mcg-62.5 mcg-25 [...] Follow-Up Appointments Saturday 8:00 AM EST With: Dewayne VILLEGAS, Asuncion [place] Where: [facility] Patient Educationon 02-21-20 Patient Education Obstetrics and Gynecology Pelvic Floor [...] pelvic muscle tension or spasms. ? Take gocz-mwo-mdtgusd and prescription medicines only as told by [...] movement i (more content not included)... Normal [facility] Urology Office/Clinic Noteon 02-20-2023 Urology Office/Clinic [...] Information Dewayne VILLEGAS, Asuncion [place], URL, [facility] [address], [place] [address] [phone] Additional Instructions: 1 yr Patient Education Pelvic Floor Dysfunction, Female Kegel Exercises I, Kimmie Lemus, personally scribed for Dr. Buchanan on 02/20/2023 09:52:34. . Documentation recorded by the scribeKimmie, accurately reflects the services(s) I performed and decisions made by me. Authenticated by Dr. Buchanan on 02/20/2023 18:18:32. Problem List/Past Medical History Ongoing Abdominal bloating Acute allergic rhinitis due to pollen Arthritis Asthma Asymptomatic microscopic hematuria Benign essential hypertension Bilateral cataracts Cervical spondylosis Chronic tension headache Duodenal stricture Epigast (more content not included)... Normal [facility] Comment on above: Result Comment: Electronically Signed By : Asuncion Buchanan MD\.br\Date and Time Signed: 02/20/23 18:21 EST\.br\Electronically Co-Signed By: Kimmie Lemus\.br\Date and Time Co-Signed: 02/20/23 09:53 EST POINT OF CARE GLUCOSEon 03-18 Glucose [Mass/Vol] 94 mg/dL Normal 74-106 [facility] Comment on above: Performed By: #### POCGLUC ####[facility] [address] [place] [address]DrJose Mario Glucose [Mass/Vol] 106 mg/dL Normal 74-106 [facility] Comment on above: Performed By: #### POCGLUC ####[facility] [address] [place] [address]DrJose Mario Covid-19 PCR ([facility])on 03-18 SARS-CoV-2 (COVID-19) RNA GIOVANI+probe Ql (Unsp spec) Not detected Normal NOT DETECTED [facility] Comment on above: Result Comment: This test is not yet morgan roved or cleared by the [place] FDA. When there are no FDA-approved or cleared tests available, and other criteria are met, FDA can make tests available under an emergency access mechanism called an Emergency Use Authorization (EUA). The EUA for this test is supported by the Sr Vice President of Health and Human Service's (HHS's) declaration [...] SARS-CoV-2. Performed By: #### C VDTB #### [facility] [address] [place] [address] Dr. Dwight Mario PROF CHEM 8 (BAS METB)on Anion gap [Moles/Vol] 13.4 mmol/L Normal [facility] Comment on above: Performed By: #### BMP #### [facility] [address] [place] [address] Dr. Dwight Mario Calcium [Mass/Vol] 9.1 mg/dL Normal 8.5-10.1 [facility] Comment on above: Performed By: #### BMP #### [facility] [address] [place] [address] Dr. Dwigth Mario Chloride [Moles/Vol] 107 mmol/L Normal 98-107 [facility] Comment on above: Performed By: #### BMP #### [facility] [address] [place] [address] Dr. Dwight Mario CO2 [Moles/Vol] 26.5 mmol/L Normal 21.0-32.0 [facility] Comment on above: Performed By: #### BMP #### [facility] [address] [address] [address] Dwight Mario Creatinine [Mass/Vol] 0.76 mg/dL Normal 0.55-1.02 [facility] Comment on above: Performed By: #### BMP #### [facility] [address] [address] [address] Dwight Mario EGFR-AF CITIZEN [place] >60 Normal >=60 [facility] Comment on above: Performed By: #### BMP #### [facility] [address] [address] [address] Dwight Mario EGFR-NON AF CITIZEN OF [place] >60 Normal >=60 [facility] Comment on above: Performed By: #### BMP #### [facility] [address] [place] [address] Dr. Dwight Mario Glucose [Mass/Vol] 108 mg/dL Critically high 74-106 [facility] Comment on above: Performed By: #### BMP #### [facility] [address] [place] [address] Dr. Dwight Mario Potassium [Moles/Vol] 3.9 mmol/L Normal 3.5-5.1 [facility] Comment on above: Performed By: #### BMP #### [facility] [address] [place] [address] Dr. Dwight Mario Sodium [Moles/Vol] 143 mmol/L Normal 136-145 [facility] Comment on above: Performed By: #### BMP #### [facility] [address] [place] [address] Dr. Dwight Mario Urea nitrogen [Mass/Vol] 25.0 mg/dL Critically high 7.0-18.0 [facility] Comment on above: Performed By: #### BMP #### [facility] [address] [place] [address] Dr. Dwight Mario Urea nitrogen/Creatin ine [Mass ratio] 32.9 mg/mg Normal [facility] Comment on above: Performed By: #### BMP #### [facility] [address] [place] [address] Dr. Dwight Mario CBC AUTO DIFFon 01-29-2022 BASO # 0.0 103/ul Normal 0.0-0.1 [facility] Comment on above: Performed By: #### CBC #### [facility] [address] [place] [address] Dr. Dwight Mario Basophils/100 WBC (Bld) 0.4 % Normal 0.2-2.0 [facility] Comment on above: Performed By: #### CBC #### [facility] [address] [place] [address] Dr. Dwight Mario EO # 0.3 103/ul Normal 0.0-0.7 [facility] Comment on above: Performed By: #### CBC #### [facility] [address] [place] [address] Dr. Dwight Mario Eosinophils/100 WBC (Bld) 2.8 % Normal 0.9-7.0 [facility] Comment on above: Performed By: #### CBC #### [facility] [address] [place] [address] Dr. Dwight Mario Erythrocyte distribution width (RBC) [Ratio] 14.0 % Normal 11.0-15.0 [facility] Comment on above: Performed By: #### CBC #### [facility] [address] [place] [address] Dr. Dwight Mario Hematocrit (Bld) [Volume fraction] 38.3 % Normal 36.0-48.0 [facility] Comment on above: Performed By: #### CBC #### [facility] [address] [place] [address] Dr. Dwight Mario Hemoglobin (Bld) [Mass/Vol] 12.6 g/dL Normal 12.0-16.0 [facility] Comment on above: Performed By: #### CBC #### [facility] [address] [place] [address] Dr. Dwight Mario IG # 0.03 10e3/ul Normal 0.00-0.03 [facility] Comment on above: Performed By: #### CBC #### [facility] [address] [place] [address] Dr. Dwight Mario IG % 0.3 % Normal 0.0-0.5 [facility] Comment on above: Performed By: #### CBC #### [facility] [address] [place] [address] Dr. Dwight Mario LYMPH # 2.9 103/ul Normal 1.2-3.8 [facility] Comment on above: Performed By: #### CBC #### [facility] [address] [place] [address] Dr. Dwight Mario Lymphocytes/100 WBC (Bld) 29.0 % Normal 20.5-60.0 [facility] Comment on above: Performed By: #### CBC #### [facility] [address] [place] [address] Dr. Dwight Mario MANUAL DIFF REQ NO Normal [facility] Comment on above: Performed By: #### CBC #### [facility] [address] [place] [address] Dr. Dwight Mario MCH (RBC) [Entitic mass] 30.3 pg Normal 26.7-34.0 [facility] Comment on above: Performed By: #### CBC #### [facility] [address] [place] [address] Dr. Dwight Mario MCHC (RBC) [Mass/Vol] 32.9 g/dL Normal 29.9-35.2 [facility] Comment on above: Performed By: #### CBC #### [facility] [address] [place] [address] Dr. Dwight Mario MCV (RBC) [Entitic vol] 92.1 fL Normal 81.0-99.0 [facility] Comment on above: Performed By: #### CBC #### [facility] [address] [place] [address] Dr. Dwight Mario MONO # 0.8 103/ul Normal 0.3-0.8 [facility] Comment on above: Performed By: #### CBC #### [facility] [address] [place] [address] Dr. Dwight Mario Monocytes/100 WBC (Bld) 7.9 % Normal 1.7-12.0 [facility] Comment on above: Performed By: #### CBC #### [facility] [address] [address] [address] Dwight Mario NEUT # 5.9 103/ul Normal 1.4-6.5 [facility] Comment on above: Performed By: #### CBC #### [facility] [address] [address] [address] Dwight Mario Neutrophils/100 WBC (Bld) 59.6 % Normal 43.0-75.0 [facility] Comment on above: Performed By: #### CBC #### [facility] [address] [address] [address] Dwight Mario Platelet mean volume (Bld) [Entitic vol] 9.4 fL Critically low 9.5-13.5 [facility] Comment on above: Performed By: #### CBC #### [facility] [address] [address] [address] Dwight Mario PLT 385 103/ul Normal 150-450 [facility] Comment on above: Performed By: #### CBC #### [facility] [address] [address] [address] Dwight Mario RBC 4.16 106/ul Critically low 4.20-5.40 [facility] Comment on above: Performed By: #### CBC #### [facility] [address] [address] [address] Dwight Mario WBC 10.0 103/ul Normal 4.0-11.0 [facility] Comment on above: Performed By: #### CBC #### [facility] [address] [address] [address] Dwight Mario LIPID PROFILEon 01-29-2022 CHOL-HDL RATIO NORM SEE BELOW Normal [facility] Comment on above: Result Comment: 3.3 - 4.4 LOW RISK 4.4 - 7.1 AVERAGE RISK 7.1 - 11.0 MODERATE RISK >11.0 HIGH RISK Performed By: #### L IPID, BMP, ALT, TSH ####[facility] [address] [address]Dr. Dwight Mario Cholesterol [Mass/Vol] 184 mg/dL Normal <=200 [facility] Comment on above: Performed By: #### LIPID, BMP, ALT, TSH ####[facility] [address] [address]Dr. Dwight Mario Cholesterol in HDL [Mass/Vol] 61 mg/dL Critically high 40-60 [facility] Comment on above: Performed By: #### LIPID, BMP, ALT, TSH ####[facility] [address] [place] [address]Dr. Dwight Mario Cholesterol in LDL [Mass/Vol] 96.0 mg/dL Normal [facility] Comment on above: Performed By: #### LIPID, BMP, ALT, TSH ####[facility] [address] [place] [address]Dr. Dwight Fabiano Cholesterol.tota l/Cholesterol in HDL [Mass ratio] 3.0 {ratio} Normal [facility] Comment on above: Performed By: #### LIPID, BMP, ALT, TSH ####[facility] [address] [place] [address]Dr. Dwight Mario HDL NORMAL > or = 60 mg/dl - LO W CARDIOVASCULAR RISK <40 mg/dl - HIGH CARDIOVASCULAR RISK Normal [facility] Comment on above: Performed By: #### LIPID, BMP, ALT, TSH ####[facility] [address] [place] [address]Dr. Dwight Mario LDL CALC NORMAL SEE BELOW Normal [facility] Comment on above: Result Comment: <100 mg/dl OPTIMAL 100 - 129 mg/dl NEAR OR ABOVE OPTIMAL 130 - 159 mg/dl BORDERLINE HIGH 160 - 189 mg/dl HIGH >190 mg/dl VERY HIGH Performed By: #### L IPID, BMP, ALT, TSH ####[facility] [address] [place] [address]Dr. Dwight Mario Triglyceride [Mass/Vol] 135 mg/dL Normal <=150 [facility] Comment on above: Performed By: #### LIPID, BMP, ALT, TSH ####[facility] [address] [place] [address]Dr. Dwight Fabiano VLDL CALC 27.0 mg/dL Normal [facility] Comment on above: Performed By: #### LIPID, BMP, ALT, TSH ####[facility] [address] [place], [place] [address]RgDr. Dwight Mario MG MAMM SCREEN 3D ALLEGRA CADon 01-29-2022 MG MAMM SCREEN 3D ALLEGRA CAD Patient: MUNIRA CHESTER Exam Date: 01/29/2022 : 1950 Gender:F Ordering : DR ANDREA WU D.O. Admission #: [id number] Family : DR. MANE ARCE D.O. Order #: [id number] CLICK HERE TO VIEW EXAM RADIOLOGY REPORT [...] breast cancer at age 61. LOCATION: [facility] BREAST COMPOSITION: Scattered areas fibroglandular density. FINDINGS: [...] MD on 01/29/2022 at 15:25 Normal [facility] PROF CHEM 8 (BAS METB)on Anion gap [Moles/Vol] 9.7 mmol/L Normal The [facility] Comment on above: Performed By: #### LIPID, BMP, ALT, TSH ####[facility] [address] [place] [address]Dr. Dwight Mario Calcium [Mass/Vol] 8.9 mg/dL Normal 8.5-10.1 [facility] Comment on above: Performed By: #### LIPID, BMP, ALT, TSH ####[facility] [address] [place], [place] [address]Dr. Dwight Mario Chloride [Moles/Vol] 105 mmol/L Normal 98-107 [facility] Comment on above: Performed By: #### LIPID, BMP, ALT, TSH ####[facility] [address] [place], [place] [address]Dr. Dwight Mario CO2 [Moles/Vol] 27.3 mmol/L Normal 21.0-32.0 [facility] Comment on above: Performed By: #### LIPID, BMP, ALT, TSH ####[facility] [address] [place], [place] [address]Dr. Dwight Mario Creatinine [Mass/Vol] 0.80 mg/dL Normal 0.55-1.02 [facility] Comment on above: Performed By: #### LIPID, BMP, ALT, TSH ####[facility] V[address] [place], [place] [address]Dr. Dwight Mario EGFR-AF CITIZEN [place] >60 Normal >=60 [facility] Comment on above: Performed By: #### LIPID, BMP, ALT, TSH ####[facility] [address] [place], [place] [address]Dr. Dwight Mario EGFR-NON AF CITIZEN OF [place] >60 Normal >=60 [facility] Comment on above: Performed By: #### LIPID, BMP, ALT, TSH ####[facility] [address] [place], [place] [address]Dr. Dwight Mario Glucose [Mass/Vol] 107 mg/dL Critically high 74-106 [facility] Comment on above: Performed By: #### LIPID, BMP, ALT, TSH ####[facility] Sin[address] [place], [place] [address]Dr. Dwight Mario Potassium [Moles/Vol] 4.0 mmol/L Normal 3.5-5.1 [facility] Comment on above: Performed By: #### LIPID, BMP, ALT, TSH ####[facility] [address] [place] [address]Dr. Dwight Mario Sodium [Moles/Vol] 138 mmol/L Normal 136-145 [facility] Comment on above: Performed By: #### LIPID, BMP, ALT, TSH ####[facility] [address] [place] [address]Dr. Dwight Mario Urea nitrogen [Mass/Vol] 20.0 mg/dL Critically high 7.0-18.0 [facility] Comment on above: Performed By: #### LIPID, BMP, ALT, TSH ####[facility] [address] [place] [address]Dr. Dwight Mario Urea nitrogen/Creatin ine [Mass ratio] 25.0 mg/mg Normal [facility] Comment on above: Performed By: #### LIPID, BMP, ALT, TSH ####[facility] [address] [place] [address]Dr. Dwight Mario SGPTon 01-29-2022 ALT [Catalytic activity/Vol] 26 U/L Normal 14-59 [facility] Comment on above: Performed By: #### LIPID, BMP, ALT, TSH ####[facility] [address] [place] [address]Dr. Dwight Mario TSHon 01-29-2022 TSH 5.901 uIU/mL Critically high 0.358-3.740 [facility] Comment on above: Performed By: #### LIPID, BMP, ALT, TSH ####[facility] [address] [place] [address]Dr. Dwight Mario XR shoulder LT min 2V*on XR shoulder LT min 2V* [facility] [address] [place] [address] XRay Report Signed Patient: Munira Chester MR#: [id number] : 1950 Acct:[id number] Age/Sex: 71 / F ADM Date: 10/10/21 [place] [facility] [place] Type: [facility] Attending Dr: Espinoza Botello MD Copies to: [...] Abelino Prado M.D.10/10/2021 1:25 PM Dictation Location: [place] [address] Transcribed By: [facility] 10/10/21 1325 Dictated By: Abelino Prado II, MD 10/10/21 1324 Signed By: 10/10/21 1325 [facility] MRI SHOULDER LT WO CONon MRI SHOULDER [...] by: YOVANA COTTRELL Date: 2021-10-03 15:02 Normal [facility] Vital Signs Date Time Vital Sign Value Performing Clinician Facility 02-18-2023 11:45-0500 Body height 154.94 cm [facility] Other [facility] Other 02-18-2023 11:45-0500 Body mass index (BMI) [Ratio] 29.4 kg/m2 [facility] Other [facility] Other 02-18-2023 11:45-0500 Body weight 70.58 kg [facility] Other [facility] Other 02-18-2023 11:45-0500 Diastolic blood pressure 80 mm[Hg] [facility] Other [facility] Other 02-18-2023 11:45-0500 Respiratory rate 12 /min [facility] Other [facility] Other 02-18-2023 11:45-0500 SaO2% (BldA) [Mass fraction] 98 % Andrea Ball Other [facility] Other 02-18-2023 11:45-0500 Systolic blood pressure 148 mm[Hg] Andrea Ball Other [facility] Other 01-25-2023 08:30-0500 Body height 154.94 cm Andrea Ball Other [facility] Other 01-25-2023 08:30-0500 Body mass index (BMI) [Ratio] 29.59 kg/m2 Andrea Ball Other [facility] Other 01-25-2023 08:30-0500 Body weight 71.03 kg Andrea Ball Other [facility] Other 01-25-2023 08:30-0500 Diastolic blood pressure 77 mm[Hg] Andrea Ball Other [facility] Other 01-25-2023 08:30-0500 Respiratory rate 12 /min Andrea Ball Other [facility] Other 01-25-2023 08:30-0500 Systolic blood pressure 118 mm[Hg] Andrea Ball Other [facility] Other 12-12-2022 13:45-0400 Body height 154.94 cm Andrea Ball Other [facility] Other 12-12-2022 13:45-0400 Body mass index (BMI) [Ratio] 29.36 kg/m2 Andrea Ball Other [facility] Other 12-12-2022 13:45-0400 Body weight 70.49 kg Andrea Ball Other [facility] Other 12-12-2022 13:45-0400 Diastolic blood pressure 79 mm[Hg] Andrea Ball Other [facility] Other 12-12-2022 13:45-0400 Respiratory rate 12 /min Andrea Ball Other [facility] Other 12-12-2022 13:45-0400 SaO2% (BldA) [Mass fraction] 98 % Andrea Ball Other [facility] Other 12-12-2022 13:45-0400 Systolic blood pressure 130 mm[Hg] Andrea Ball Other [facility] Other 11-01-2022 15:05-0400 Body height 154.94 cm Shannan Webster Other [facility] Other 11-01-2022 15:05-0400 Body mass index (BMI) [Ratio] 28.34 kg/m2 Shannan Webster Other [facility] Other 11-01-2022 15:05-0400 Body temperature 96.2 [degF] Shannan Webster Other [facility] Other 11-01-2022 15:05-0400 Body weight 68.04 kg Shannan Webster Other [facility] Other 11-01-2022 15:05-0400 Diastolic blood pressure 69 mm[Hg] Shannan Webster Other [facility] Other 11-01-2022 15:05-0400 Respiratory rate 18 /min Shannan Webster Other [facility] Other 11-01-2022 15:05-0400 SaO2% (BldA) [Mass fraction] 99 % Shannan Webster Other [facility] Other 11-01-2022 15:05-0400 Systolic blood pressure 130 mm[Hg] Shannan Webster Other [facility] Other 03-05-2022 15:00-0500 Body height 162.56 cm Luma Chirinos Other [facility] Other 12-01-2021 09:55-0400 Blood Pressure Location Asuncion Lue [facility] 12-01-2021 09:55-0400 Diastolic blood pressure 89 mm[Hg] Asuncion Lue [facility] 12-01-2021 09:55-0400 Heart rate 81 /min Asuncion Lue [facility] 12-01-2021 09:55-0400 Systolic blood pressure 140 mm[Hg] Asuncion Lue [facility] 10-10-2021 10:15-0400 Body height 162.56 cm Espinoza Botello Other [facility] Other 10-10-2021 10:15-0400 Body mass index (BMI) [Ratio] 24.89 kg/m2 Espinoza Botello Other [facility] Other 10-10-2021 10:15-0400 Body weight 65.77 kg Espinoza Botello Other [facility] Other Encounters Encounter Date Encounter Type Care Provider Facility Start: 02-19-2024 ambulatory Asuncion Buchanan Facility:[facility] Start: 04-04-2023 End: 04-04-2023 ambulatory Andrea Wu Other [facility] Other Start: 04-04-2023 Telephone encounter Andrea WALLACE [facility] Start: 03-08-2023 End: 03-08-2023 ambulatory Andrea Wu Other [facility] Other Start: 03-08-2023 Telephone encounter Andrea WALLACE [facility] Start: 03-07-2023 End: 03-07-2023 ambulatory ANA VALIENTE Not Available Start: 03-06-2023 Telephone encounter Andrea WALLACE [facility] Start: 03-06-2023 End: 03-06-2023 ambulatory MANE E JONATHONEDGARD [facility] Other Start: 02-25-2023 End: 02-25-2023 ambulatory Andrea Wu Other [facility] Other Start: 02-25-2023 Telephone encounter Andrea WALLACE [facility] Start: 02-20-2023 End: 02-21-2023 ambulatory Asuncion Buchanan Facility:[facility] Start: 02-20-2023 End: 02-20-2023 Patient encounter procedure Asuncion Buchanan [facility] Start: 02-18-2023 End: 02-18-2023 ambulatory Andrea Wu Other [facility] Other Start: 02-18-2023 Office outpatient vi sit 15 minutes Andrea Wu [facility] Start: 02-05-2023 End: 02-05-2023 ambulatory Andrea Wu Other [facility] Other Start: 02-05-2023 Telephone encounter Andrea Wu [facility] Start: 01-31-2023 End: 01-31-2023 ambulatory Andrea Wu Other [facility] Other Start: 01-31-2023 Telephone encounter Andrea Wu [facility] Start: 01-29-2023 End: 01-29-2023 ambulatory Andrea Wu Other [facility] Other Start: 01-29-2023 Telephone encounter Andrea Wu [facility] Start: 01-25-2023 End: 01-25-2023 ambulatory Andrea Wu Other [facility] Other Start: 01-25-2023 Patient encounter procedure Andrea Wu [facility] Start: 01-25-2023 Telephone encounter Andrea Wu [facility] Start: 12-12-2022 End: 12-12-2022 ambulatory Andrea Wu Other [facility] Other Start: 12-12-2022 Office outpatient vi sit 15 minutes Andrea Wu [facility] Start: 11-07-2022 End: 11-07-2022 ambulatory Andrea Wu Other [facility] Other Start: 11-07-2022 Telephone encounter Andrea Wu [facility] Start: 11-01-2022 End: 11-01-2022 ambulatory Shannan Webster Other [facility] Other Start: 11-01-2022 Office outpatient vi sit 25 minutes Shannan Webster [facility] Start: 06-27-2022 End: 06-28-[address] JEROME ESPINOSA Facility:[facility] Start: 06-04-2022 End: 06-04-2022 ambulatory Andrea Bryce Other [facility] Other Start: 06-04-2022 Telephone encounter Andrea Wu [facility] Start: 05-17-2022 End: 05-18-[address] CAMPOS SHAH Facility:[facility] Start: 04-26-2022 End: 04-27-[address] JEROME ESPINOSA Facility:[facility] Start: 04-25-2022 End: 04-25-2022 ambulatory Andrea Wu Other [facility] Other Start: 04-25-2022 Telephone encounter Andrea Bryce [facility] Start: 04-10-2022 End: 04-10-2022 ambulatory Andrea Wu Other [facility] Other Start: 04-10-2022 Telephone encounter Andrea Wu [facility] Start: 04-07-2022 Encounter for preprocedural cardiovascular examination [facility] Start: 04-07-2022 Encounter for preprocedural laboratory examination [facility] Start: 04-06-2022 End: 04-06-2022 ambulatory Andrea Wu Other [facility] Other Start: 04-06-2022 Telephone encounter Andrea Bryce [facility] Start: 04-05-2022 End: 04-05-[address] JEROME ESPINOSA Facility:[facility] Start: 04-02-2022 End: 04-03-2022 ambulatory BASHIR DANIELLE Facility:[facility] Start: 04-02-2022 End: 04-03-2022 Encounter for preprocedural cardiovascular examination BASHIR DANIELLE Facility:[facility] Start: 03-28-2022 End: 03-29-[address] JEROME ESPINOSA Facility:[facility] Start: 03-20-2022 End: 03-21-[address] ANDREA WU Facility:[facility] Start: 03-12-2022 End: 03-12-[address] JEROME ESPINOSA Facility:[facility] Start: 03-05-2022 End: 03-05-2022 ambulatory Luma Chirinos Other [facility] Other Start: 03-05-2022 Office outpatient vi sit 15 minutes Luma Chirinos [facility] Start: 02-23-2022 ambulatory Asuncion Buchanan Facility:[facility] Start: 01-29-2022 End: 01-30-[address] ANDREA WU Facility:[facility] Start: 01-18-2022 Adult health examination Shannan Webster Other [facility] Other Start: 12-01-2021 End: 12-01-2021 Patient encounter procedure Asuncion MitchellJose Howardkarina [facility] Start: 10-10-2021 End: 10-10-2021 ambulatory Espinoza Botello Other [facility] Other Start: 10-10-2021 Office outpatient vi sit 25 minutes Espinoza Botello [facility] Start: 10-10-2021 End: 10-10-2021 Patient encounter procedure MD Espinoza Botello Work Phone: [facility] Start: 10-05-2021 End: 10-05-2021 ambulatory Espinoza Botello Other [facility] Other Start: 10-05-2021 Telephone encounter Espinoza Botello [facility] Start: 10-02-2021 End: 10-03-[address] ANDREA WU Facility:[facility] Procedures Date Procedure Procedure Detail Performing Clinician Start: 10-10-2021 Plain X-ray of left shoulder MD Espinoza kidd Work Phone: Start: 09-07-2019 Colonoscopy Asuncion Lue Start: 09-07-2019 Esophagogastroduodenoscopy Asuncion Lue Start: 01-16-2015 Colonoscopy Asuncion Lue Comment on above: normal Start: 01-16-2015 Esophagogastroduodenoscopy Asuncion Lue Start: 08-17-2011 Esophagogastroduodenoscopy Asuncion Lue Start: 05-17-2011 Esophagogastroduodenoscopy Asuncion Buchanan Start: 06-16-2010 Laparoscopic cholecystectomy Asuncion Buchanan Start: 01-16-2010 Colonoscopy Asuncion Howarde Bilateral cataracts (disorder) Asuncion Lue section Asuncion Howarde Depression screening Shannan araujo Other Foot structure (body structure) Asuncion Buchanan Ligation of fallopian tube Madie Buchanan Repair of musculoten dinous cuff of shoulder Asuncion Buchanan Screening for malign ant neoplasm of breast Shannan Webster Other Screening for malign ant neoplasm of colon Shannan Webster Other Immunizations Immunization Date Immunization Notes Care Provider Adan valentine 12-31-2022 Flu Shot - Documentation Purposes Only Andrea Wu Other [facility] Other 12-31-2022 influenza virus vaccine, unspecified formulation Asuncion Buchanan [facility] 12-22-2021 SARS-CoV-2 (COVID-19 ) [id number] Asuncion Buchanan [facility] 12-18-2021 influenza virus vaccine, split virus (incl. purified surface antigen) Shannan Webster Other [facility] Other 12-18-2021 influenza virus vaccine, unspecified formulation Asuncion Buchanan [facility] 07-04-2021 SARS-CoV-2 (COVID-19 ) mRNA-1273 vaccine Asuncion Buchanan [facility] 01-23-2021 SARS-CoV-2 (COVID-19 ) mRNA-1273 vaccine Asuncion Lue [facility] 11-23-2020 influenza virus vaccine, split virus (incl. purified surface antigen) Shannan Webster Other [facility] Other 11-23-2020 influenza virus vaccine, unspecified formulation Asuncion Lue [facility] 06-02-2020 SARS-CoV-2 (COVID-19 ) mRNA-1273 vaccine Asuncion Lue [facility] 05-05-2020 SARS-CoV-2 (COVID-19 ) mRNA-1273 vaccine Asuncion Lue [facility] 03-18-2020 SARS-CoV-2 (COVID-19 ) mRNA-1273 vaccine Asuncion Lue [facility] Comment on above: Result Comment: 3 sh ots to date 12-07-2019 influenza virus vaccine, split virus (incl. purified surface antigen) Shannan Webster Other [facility] Other 12-07-2019 influenza virus vaccine, unspecified formulation Asuncion Lue [facility] 01-05-2019 influenza virus vaccine, unspecified formulation Asuncion Lue [facility] 01-05-2019 pneumococcal polysaccharide vaccine, 23 valent Asuncion Lue [facility] 12-17-2018 influenza virus vaccine, unspecified formulation Asuncion Lue [facility] 12-19-2017 influenza virus vaccine, unspecified formulation Asuncion Lue [facility] 01-10-2017 influenza virus vaccine, split virus (incl. purified surface antigen) Shannan Webster Other [facility] Other 01-10-2017 influenza virus vaccine, unspecified formulation Asuncion Lue [facility] 01-10-2017 pneumococcal conjuga te vaccine, 13 valent Asuncion Lue [facility] 01-04-2016 influenza virus vaccine, unspecified formulation Asuncion Lue [facility] 01-04-2016 pneumococcal polysaccharide vaccine, 23 valent Asuncion Lue [facility] Payers Date Payer Category Payer Medicare [id number] 2.1 [id number] 1959 Unknown [id number] 2. [id number] 1950 Unknown [id number] 2.16.84 0.1.395140.3.579.2.593 1950 Unknown [id number] 2.16.84 0.1.195180.3.579.2.593 1950 Unknown [id number] 2.16.84 0.1.720012.3.579.2.59 1950 Unknown [id number] 2.16.84 0.1.748170.3.579.2.593 1950 Unknown [id number] 2.16.84 0.1.608376.3.579.2.593 1950 Unknown [id number] 2.16.84 0.1.471379.3.579.2.593 1950 Unknown [id number] 2.16.84 0.1.026749.3.579.2.593 1950 Unknown [id number] 2.16.84 0.1.876167.3.579.2.593 1950 Unknown [id number] 2.16.84 0.1.030423.3.579.2.593 1950 Unknown [id number] 2.16.84 0.1.947438.3.579.2.593 1950 Unknown [id number] 2.16.8 40.1.679819.3.579.2.727 1950 Unknown [id number] 2.16.8 40.1.654868.3.579.2.727 1950 Unknown [id number] 2.16.8 40.1.338749.3.579.2.727 1950 Unknown [id number] 2.16.840 .1.854195.3.579.2.1259 1950 Unknown [id number] 2.16.840 .1.782478.3.579.2.1259 Self-pay Self Pay [id number] Unknown Luna BC/BS [id number] Social History Date Type Detail Facility Unknown if ever smoked [facility] Other Sex Assigned At [facility] Other Start: 11-11-2018 End: 02-20-2023 Tobacco smoking status NHIS Never smoked tobacco (finding) [facility] Start: 1950 Sex Assigned At Female F [facility] Tobacco smoking status Never [facility] Medical Equipment Procedure Code Equipment Code Equipment Origin al Text Equipment Identifier Dates Arthroscopy, shoulder ANCHOR SUTURE FT III [id number] FDA Start: 11-11-2018 Functional Status Date Assessment Result Facility 02-20-2023 Functional Status N/A [facility] 12-01-2021 Functional Status N/A [facility] Clinical Notes 10-10-2021 to 04-04-2023 Note Date & Type Note Facility 04-04-2023 Evaluation note Encounter Date Diagnosis Assessment Notes Mar, Iron deficiency anemia due to chronic blood loss (ICD-10 - D50.0) [facility] Other 12-22-2023 Evaluation note* Encounter Date Diagnosis Assessment Notes Treatment Notes Treatment Clinical Notes Feb, Iron deficiency anemia due to chronic blood loss (ICD-10 - D50.0) [facility] Other 12-20-2023 Evaluation note* Encounter Date Diagnosis Assessment Notes Treatment Notes Treatment Clinical Notes Feb, Anemia (ICD-10 - D64.9) [facility] Other 12-11-2023 Evaluation note* Encounter Date Diagnosis Assessment Notes Treatment Notes Treatment Clinical Notes Feb, Moderate persistent asthma without complication (ICD-10 - J45.40) [facility] Other 12-06-2023 Hospital Discharge instructions Patient Education [...] relieve pelvic muscle tension or spasms. Take aapy-fzu-zwiwiyi and prescription medicines only as told by [...] provider. Document Revised: 07/12/2021 Document Reviewed: 07/12/2021 [employer] Patient Education 2022 [facility]. 02/20/2023 09:44:59 Kegel Exercises Kegel Exercises Kegel [...] provider. Document Revised: 07/13/2021 Document Reviewed: 07/13/2021 [employer] Patient Education 2022 [facility]. Follow Up Care 01/31/2022 08:50:25 With:Dewayne VILLEGAS, RANDAL Arizmendi, URO Address: [address], [place] [phone] When: Unknown Comments:1 yr [facility] 12-04-2023 Evaluation note* Encounter Date Diagnosis Assessment Notes Treatment Notes Treatment Clinical Notes Feb, Moderate persistent asthma with acute exacerbation (ICD-10 - J45.41) Holding Breo for trial of Trelegy. Avoid dust, mold, fumes as much as possible. Steroid taper to break cycle of coughing Refer to Risk Analyst and Cereal Popper when stable Feb, Non-seasonal allergi c rhinitis due to other allergic trigger (ICD-10 - J30.89) Continue FLonase NS Add Astepro NS Continue Claritin and Singulair Feb, Gastroesophageal reflux disease with esophagitis without hemorrhage (ICD-10 - K21.00) Diet instructions: Smaller portions, avoid eating and laying flat, avoid eating or drinking prior to bedtime. Weight loss. Continue PPI [facility] Other 11-21-2023 Evaluation note* Encounter Date Diagnosis Assessment Notes Treatment Notes Treatment Clinical Notes Jan, Age-related osteopor osis without current pathological fracture (ICD-10 - M81.0) Jan, Hypercholesteremia (ICD-10 - E78.00) [facility] Other 11-14-2023 Evaluation note* Encounter Date Diagnosis Assessment Notes Treatment Notes Treatment Clinical Notes Jan, Menopause (ICD-10 - Z78.0) [facility] Other 11-10-2023 Evaluation note* Encounter Date Diagnosis Assessment Notes Treatment Notes Treatment Clinical Notes Jan, Hypercholesteremia (ICD-10 - E78.00) [facility] Other 11-10-2023 Evaluation note* Encounter Date Diagnosis [...] much improved. Offered PFT and referral to [facility]. Jan, Autoimmune thyroidit is (ICD-10 - E06.3) [...] esophagitis without hemorrhage (ICD-10 - K21.00) Jan, LOREZNO (generalized anxiety disorder) (ICD-10 - F41.1) [facility] Other 09-27-2023 Evaluation note* Encounter Date Diagnosis Assessment Notes Treatment Notes Treatment Clinical Notes Nov, Moderate persistent asthma with acute exacerbation (ICD-10 - J45.41) Reviewed medication - continue LABA/ICS and NIKO - continue Singulair, Claritin and Flonase Suggested short course of Steroids and antibiotics. Discussed use of LAMA in combination of what she is presently taking CXR if no improvement [facility] Other 08-23-2023 Evaluation note* Encounter Date Diagnosis Assessment Notes Treatment Notes Treatment Clinical Notes Oct, Mild persistent asthma, uncomplicated (ICD-10 - J45.30) [facility] Other 08-17-2023 Evaluation note* Encounter Date Diagnosis [...] understanding and is agreeable to treatment plan [facility] Other 04-12-2023 NotePROCEDURE: XR FOOT RT MIN [...] Electronically authenticated by: JEROME ESPINOSA Date: 2022-06-27 15:36[facility]03-02-2023 NotePROCEDURE: XR FOOT RT MIN 3 VIEWS [...] Electronically authenticated by: CAMPOS SHAH Date: 2022-05-17 16:27[facility]02-09-2023 NotePROCEDURE: XR FOOT RT MIN 3 VIEWS [...] authenticated by: JEROME ESPINOSA Date: 2022-04-26 09:37[id number] NotePROCEDURE: XR FOOT RT MIN 3 VIEWS [...] Electronically authenticated by: JEROME ESPINOSA Date: 2022-04-05 14:43[facility]01-19-2023 NotePROCEDURE: XR FOOT RT 2V HISTORY: Pain COMPARISON: XR foot right 03/28/2022 FINDINGS: BONES:Multiple intraoperative spot fluoroscopic images demonstrate placement of a lag screw longitudinally within the base of the fifth metatarsal securing the proximal metaphyseal fracture. SOFT TISSUES:Expected intraoperative findings. EFFUSION:None visible. OTHER: Negative. IMPRESSION: 1. Intraoperative fixation of base of right fifth metatarsal fracture. Electronically authenticated by: JEROME ESPINOSA Date: 2022-04-05 14:41[facility]01-11-2023 NotePROCEDURE: XR FOOT RT MIN 3 VIEWS [...] Electronically authenticated by: JEROME ESPINOSA Date: 2022-03-28 10:17[facility]12-26-2022 NotePROCEDURE: XR FOOT RT MIN 3 VIEWS [...] Electronically authenticated by: JEROME ESPINOSA Date: 2022-03-12 09:46[facility]12-19-2022 Evaluation note* Encounter Date Diagnosis Assessment Notes Treatment Notes Treatment Clinical Notes Feb, Acute pain of left shoulder (ICD-10 - M25.512) Feb, Tear of left supraspinatus tendon (ICD-10 - M75.102) A 1/1cc marcaine / kenalog cortisone injection was performed into the subacromial space under sterile technique. Patient tolerated the injection well with no adverse reaction. [facility] Other 09-16-2022 Hospital Discharge instructions Patient Education [...] nerve stimulation). For women, using a medical record librarians teacher to prevent urine leaks. This is a [...] right after experiencing incontinence. General instructions Take gkci-jtg-hoxspsm and prescription medicines only as told by [...] 04/11/2005 Document Revised: 03/14/2018 Document Reviewed: 06/13/2017 [employer] Patient Education 2020 [facility]. Follow Up Care 10/20/2021 08:23:44 With:Asuncion Buchanan MD, URL, [facility] Address: When: Unknown [facility] 2022 Evaluation note* Encounter Date Diagnosis Assessment [...] the injection well with no adverse reaction. [employer] Other Evaluation + Plan note Future Appointments Appointment Date:01/31/2022 08:00:00 AM Scheduled Provider:Asuncion Buchanan MD Location:[facility] Appointment Type:URO Office Visit [facility] Evaluation + Plan note Future Appointments Appointment Date:02/19/2024 08:00:00 AM Scheduled Provider:Dewayne VILLEGAS, Asuncion [place] Location:[facility] Appointment Type:URO Office Visit [facility] evaluation noteNo InformationNort [employer] Other Evaluation noteNo assessment information available [facility] Work Phone: Hisceat general Narrative - Reported* Type Description Date [...] above Hospitalization History blood transfusion from b [employer] Other Hisunod general Narrative - Reported* Type Description Date [...] above Hospitalization History blood transfusion from b [employer] Other Hisbmxt general Narrative - Reported* Type Description Date [...] above Hospitalization History blood transfusion from b [employer] Other History general Narrative - Reported* Type [...] above Hospitalization History blood transfusion from b [employer] Other History general Narrative - Reported* Type [...] above Hospitalization History blood transfusion from b [employer] Other Hospital course Narrative No data available for this section [facility] [employer] Progress note No data available for this section [facility] [employer] Summary Purpose Family History Relationship Condition Age [...] InformationASTHMA, ALLERGIES ALL SUMMAR LONGNo InformationwellnessOrdermamm/lab resultsRefillcough/wheezingUpdateRepeat LabsLab resultsRepeat Labs INFORMATION SOURCE (unrecogn ized section and content) DATE CREATED AUTHOR 10/11/2021 [facility] DATE CREATED AUTHOR AUTHOR'S ORGANIZ ATION 07/02/2022 [facility] DATE CREATED AUTHOR AUTHOR'S ORGANIZ ATION 02/22/2023 Garay Sumner [facility] DATE CREATED AUTHOR AUTHOR'S ORGANIZ ATION 03/08/2023 [facility] [employer] Care Teams (unrecognized sec tion and content) [...] BE BASED ON THE PRIMARY CLINICAL RECORDS. [employer] provides no warranty or guarantee of the accuracy or completeness of information in this document.
[2023-04-11 06:50] LABS: Basophils Percent Auto 0.4 % (0.2-2.0); Eosinophils Absolute Auto 1.7 10^3/uL (0.0-0.7); Eosinophils Percent Auto 18.8 % (0.9-7.0); Hematocrit 32.1 % (36.0-48.0); Hemoglobin 9.5 g/dL (12.0-16.0); Immature Granulocytes Abs Auto 0.02 10^3/uL (0.00-0.03); Immature Granulocytes Pct Auto 0.2 % (0.0-0.5); Lymphocytes Percent Auto 21.7 % (20.5-60.0); Mean Corpuscular HGB Conc 29.6 g/dL (29.9-35.2); Mean Corpuscular Hemoglobin 24.3 pg (26.7-34.0); Mean Corpuscular Volume 82.1 fL (81.0-99.0); Mean Platelet Volume 9.8 fL (9.5-13.5); Monocytes Absolute Auto 0.7 10^3/uL (0.3-0.8); Monocytes Percent Auto 7.7 % (1.7-12.0); Neutrophils Absolute Auto 4.7 10^3/uL (1.4-6.5); Neutrophils Percent Auto 51.2 % (43.0-75.0); Platelet Count 357 10^3/uL (150-450); Red Blood Count 3.91 10^6/uL (4.20-5.40); Red Cell Distribution Width 17.4 % (11.0-15.0); White Blood Count 9.2 10^3/uL (4.0-11.0)
== END 2023-04-11 06:31 | disposition home or self-care (01) ==
LOC: LAB 06:31
PROVIDERS: PCP Internal Medicine; Visit Provider Internal Medicine
DX: D50.0 Iron deficiency anemia secondary to blood loss (chronic) (principal)
CPT/HCPCS: 36415; 82728; 85025

== ENCOUNTER 2023-05-07 07:44 | Outpatient (OUT) | payer MEDICARE, OTHER, SELFPAY ==
--- OUTSIDE RECORDS SUMMARY | 2023-05-07 07:46 | XMS_ITS | CCD ---
Author Name Unknown Address [id number] [place] [address] Organization [facility] Care Team Providers Care Occupational Therapist Aide Name Role Phone Espinoza Botello Unavailable ANDREA WU Primary Care Physician Andrea Wu Unavailable Luma Chirinos Unavailable PABLO, DR CAMPOS Nixon Consulting Unavailable CHICO, DR WILKES Primary Care Unavailable KIKI CROWELL Attending Unavailable KIKI CROWELL Admitting Unavailable KIKI CROWELL Consulting Unavailable JESÚS, DR JEROME Winkler Consulting Unavailable AZUCENA ., DR MONZON Attending Unavailable AZUCENA ., DR MONZON Admitting Unavailable CHICO, DR WILKES Primary Care Unavailable AZUCENA Garcia, DR MONZON Consulting Unavailable ESPINOZA BOTELLO Consulting Unavailable BASHIR DANIELLE Consulting Unavailable CHICO, DR WILKES Primary Care Unavailable BASHIR DANIELLE Attending Unavailable BASHIR DANIELLE Admitting Unavailable MARGARITO MAS Consulting Unavailable JESÚS, DR JEROME Winkler Consulting Unavailable CHICO, DR WILKES Primary Care Unavailable BASHIR DANIELLE Attending Unavailable BASHIR DANIELLE Admitting Unavailable BASHIR DANIELLE Consulting Unavailable GILBERT DUKE Consulting Unavailable SYED PAZ Consulting Unavailable RILEY HURTADO Consulting Unavailable JESÚS, DR JEROME Winkler Consulting Unavailable CHICO, DR WILKES Primary Care Unavailable BASHIR DANIELLE Attending Unavailable BASHIR DANIELLE Admitting Unavailable BASHIR DANIELLE Consulting Unavailable CHICO, DR WILKES Consulting Unavailable ESPINOZA BOTELLO Primary Care Unavailable CHICO, DR WILKES Attending Unavailable CHICO, DR WILKES Admitting Unavailable YOVANA COTTRELL Consulting Unavailable CHICO, DR WILKES Consulting Unavailable CHICO, DR WILKES Primary Care Unavailable CHICO, DR WILKES Attending Unavailable CHICO, DR WILKES Admitting Unavailable PABLO, DR CAMPOS Nixon Consulting Unavailable CHICO, DR WILKES Primary Care Unavailable KIKI CROWELL Attending Unavailable KIKI CROWELL Admitting Unavailable DR JEROME ESPINOSA Consulting Unavailable CHICO, DR WILKES Primary Care Unavailable BASHIR DANIELLE Attending Unavailable BASHIR DANIELLE Admitting Unavailable BASHIR DANIELLE Consulting Unavailable JESÚS, DR JEROME Winkler Consulting Unavailable CHICO, DR WILKES Primary Care Unavailable KIKI CROWELL Attending Unavailable KIKI CROWELL Admitting Unavailable KIKI CROWELL Consulting Unavailable Shannan Webster Unavailable Asuncion Buchanan Attending Unavailable Asuncion Buchanan Attending Unavailable Del Nettles Attending Unavailable CHRAITO VASQUEZ Attending Unavailable MADISON BURNS Attending Unavailable ANA VALIENTE Attending Unavailable Andrea Wu MD Primary Care Provider Allergies Allergy Classification Reported Allergen(s) Allergy Type Date of Onset Reaction(s) Facility (20 sources) Amoxicillin Drug Allergy 10-22-19 19 Rash, Unknown [facility] (20 sources) Sulfacetamide / Sulfur Drug Allergy Unknown [facility] Other (20 sources) idp dye Propensity to adverse reactions Unknown [facility] Other (1 source) Sulfonamides (Antibiotic) Allergy to substance 10-22-19 19 Unknown Reaction [facility] (1 source) wasp venom Allergy to substance 10-22-19 19 Anaphylaxis [facility] (1 source) bee venom protein (honey bee) Allergy to substance 10-22-19 19 Anaphylaxis [facility] (2 sources) Iodinated Contrast Media Allergy to substance 12-08-19 08 Other, Shortness of breath, Unknown [facility] (3 sources) Bee/Wasp/Ant venom; Translations: [Bee Stings] Drug allergy Dyspnea (finding), Weal (disorder) [facility] (3 sources) Contrast media; Translations: [contrast media (iodine-based)] Drug allergy Dyspnea (finding), Weal (disorder) [facility] (20 sources) Iodine; Translations: [iodine] Drug Allergy 01-15-20 23 Unknown (qualifier value), Unknown [facility] (3 sources) Penicillin; Translations: [penicillin] Drug Allergy Eruption of skin (disorder) [facility] (3 sources) Sulfonamides (Antibiotic); Translations: [sulfa drugs] Drug allergy Angioedema (disorder) [facility] [place] (1 source) bee venom Drug allergy (disorder) [facility] (1 source) Iodine (And Iodine Containting Drugs) Drug allergy (disorder) 01-19-20 15 [facility] (1 source) Penicillins Drug allergy (disorder) [facility] (1 source) Sulfonamides (Antibiotic) Drug allergy (disorder) 03-18-18 56 [facility] (2 sources) Iodine / Sodium Iodide Drug Allergy Unknown [facility] Other (18 sources) Substance with penicillin structure and antibacterial mechanism of action (substance) Drug allergy Unknown [facility] Other (19 sources) Substance with sulfonamide structure and antibacterial mechanism of action (substance) Drug allergy 12-08-19 08 Unknown [facility] Other (2 sources) Allergies Reconciled Propensity to adverse reactions Unknown [facility] Other (2 sources) patient allergy list reviewed by nurse or physicia Propensity to adverse reactions 09-25-19 Comment:Done [facility] Other (1 source) Penicillin G Drug Allergy 01-15-20 23 Rash [facility] Medications Current Medications Medication Drug Class(es) Dates [...] PO As Directed October 21, 2018 12:00am [id number] 200 actuat albuterol 0.09 mg/actuat metered dose inhaler (14 sources) beta2-Adrenergic Agonist Start: 09-02-2019 take 2 [...] OR SHORTNESS OF BREATH for 90 Active albuterol HFA 90 mcg/act inhaler Inhale 2 puffs 0 Active take 2 puff(s) by in halation [...] days Active amLODIPine 5 mg oral tablet (17 sources) Dihydropyridine Calcium Channel Bebe Start: 02-20-2023 amLODIPine (Norvasc) 5 MG tablet Refills(s) 0 0 02/20/2023 Active aspirin 770 mg / caffeine 60 mg / orphenadrine citrate 50 mg oral tablet (1 source) Platelet Aggregation Inhibitor, Nonsteroidal Anti-inflammatory Drug, Muscle Relaxant, Central Nervous System Stimulant, Methylxanthine Start: 10-21-2018 take 0.5 tablet by mouth four times daily Dcwvjfhunyfi-Vnf-U affeine Active 0.5 TAB PO Four times daily [...] hydrochloride 0.206 mg/actuat metered dose nasal spray (9 sources) Histamine-1 Receptor Antagonist Start: 02-18-2023 take 2 spray(s) nasal route twice daily Astepro 205.5 MCG/SPRAY 2 sprays in each nostril Nasally bid Feb, Active benazepril hydrochloride 10 mg oral tablet (13 sources) Angiotensin Converting Enzyme Inhibitor Start: 10-21-2018 take 1 tablet by mouth once daily benazepril 10 mg Tab 10 mg = 1 tab(s), Oral, Daily, Refills(s) 0 Start Date: 09/02/19 Status: Ordered betamethasone 1 mg/ml topical cream (20 sources) Corticosteroid Start: 03-13-2023 betamethasone valerate (Valisone) 0.1 % cream Indications: Lichen sclerosus et atrophicus Apply to affected area twice daily, Replace previous sent script 60 g 3 03/13/2023 Active Start: 10-21-2018 betamethasone Top valerate 0.1% Crm 1 morgan, Topical, Daily, Refill(s) 0 Start Date: 09/04/19 Status: Ordered Betamethasone No t-Taking/PRN Betamethasone No t-Taking Betamethasone Ac tive Breo Ellipta 200 mcg-25 mcg/inh inhalation powder [...] Three times daily October 21, 2018 12:00am cholecalciferol 0.05 mg oral capsule (1 source) Vitamin D Start: 05-18-2022 take 1 capsule by mouth in the morning RA Vitamin D-3 50 MCG (1999 UT) capsule Take 50 mcg by mouth in the morning. 0 05/18/2022 Active codeine phosphate 2 mg/ml / guaiFENesin 20 mg/ml oral solution (15 sources) Opioid Agonist Start: 04-23-2023 take 10 mL by mouth every six hours as needed for cough guaiFENesin-Codei ne 100-10 MG/5ML 10 mL Orally every 6 hours as needed for cough for 7 days Apr, Active Start: 02-25-2023 take 10 mL by mouth [...] Status: Ordered EPINEPHrine 0.3 MG/0.3ML Injection Active EpiPen 2-Giovani 0.3 MG/0.3ML injection syringe as directed Injection 0 Active estradiol 0.1 mg/ml vaginal cream (5 sources) Estrogen Start: 02-20-2023 estradiol (Est race) 0.1 MG/GM vaginal cream See Instructions, 42.5 gm, Refill(s) 0, apply pea sized amount to urethra 2x/wk, [facility], 158, cm, 02/20/23 8:48:00 EST, Height/Length Dosing, 68.5, kg, 02/20/23 8:48:00 EST, Weight Dosing 0 02/20/2023 Active Start: 02-20-2023 estradiol 0.1 mg/g Vag Crm See Instructions, 42.5 gm, Refill(s) 0, apply pea sized amount to urethra 2x/wk, [facility], 158, cm, 02/20/23 8:48:00 EST, Height/Length Dosing, 68.5, kg, 02/20/23 8:48:00 EST, Weight Dosing Start Date: 02/20/23 Status: Ordered Start: 04-13-2021 estradiol 0.1 mg/g vaginal cream See Instructions, Apply pea sized amount to external urethral 3 times a week for 2 weeks (at bedtime), then twice a week after for maintenance, # 42.5 gm, Refills(s) 1, Pharmacy: [address], [address], cm, 04/13/21 9:47:00 EST, Height/Length Do... Start Date: 04/13/21 Status: Ordered Start: 10-21-2018 End: 10-21-2018 Estradiol (Yuvafem) 10 mcg T ablet Active 10 MCG TABLET Twice a Week October 21, 2018 12:00am famotidine 20 mg oral tablet (17 sources) Histamine-2 Receptor Antagonist Start: 02-20-2023 famotidine (Pepcid) 20 MG tablet Take by mouth 0 02/20/2023 Active take 1 tablet by grzegorz th once daily at bedtime Famotidine 20 MG TAKE 1 TABLET AT BEDTIM E Orally Once a day Active fluocinonide 0.5 mg/ml topical solution (1 source) Corticosteroid Start: 03-07-2023 fluocinonide ( Lidex) 0.05 % external solution Indications: Pruritus Apply to affected areas on the scalp, up to twice a day when flared, 30 day supply 60 mL 11 03/07/2023 Active fluticasone propionate 0.05 mg/actuat metered dose nasal spray (20 sources) Corticosteroid Start: 09-02-2019 fluticasone 0. 05 mg/inh Nasal [place] 2 spray(s), Nasal, Daily, Refill(s) 0 Start [...] / vilanterol 0.025 mg/actuat dry powder inhaler (5 sources) Anticholinergic, Corticosteroid, beta2-Adrenergic Agonist Start: 02-20-2023 take 1 puff(s) by inhalation [...] Inhalation daily Active fluticasone 0.05 mg/inh Nasal [place] (1 source) Start: 09-02-2019 fluticasone 0.05 mg/inh Nasal [place] 2 spray(s), Nasal, Daily, Refill(s) 0 Start Date: 09/02/19 Status: Ordered levoFLOXacin 750 mg oral tablet (5 sources) Quinolone Antimicrobial Start: 04-16-2023 take 1 tablet by mouth every twenty-four hours levoFLOXacin 750 MG 1 tablet Orally Once a day for 5 days Mar, Active 12 hr loratadine 5 mg / pseudoephedrine sulfate 120 mg extended release oral tablet (11 sources) alpha-Adrenergic Agonist Start: 04-25-2022 take 5-120 mg by mouth twice daily as needed Claritin-D 12 Hour 5-120 MG 1 tablet Orally two times daily, as needed Apr, Active Start: 09-04-2019 take 1 tablet by grzegorz [...] TAB PO Daily October 21, 2018 12:00am LORazepam 0.5 mg oral tablet (15 sources) Benzodiazepine Start: 01-25-2023 LORazepam 0.5 MG [...] # 30 tab(s), Refills(s) 6, [facility]acy: [id number], 158, cm, 12/01/21 9:55:00 EDT, Height/Length Dosing, 68, kg, 12/01/21 9:55:00 EDT, Weight Dosing Start Date: 12/01/21 Status: Ordered montelukast 10 mg oral tablet (16 sources) Leukotriene Receptor Antagonist Start: 12-26-2022 take [...] pantoprazole 40 mg delayed release oral tablet (20 sources) Proton Pump Inhibitor Start: 12-11-2019 take 1 tablet by mouth once daily Pantoprazole [address] Tab 40 mg = 1 tab(s), Oral, Daily, # 90 tab(s), Refills(s) 1, Pharmacy: [id number] [facility], 154.9, cm, 12/11/19 9:26:00 EDT, Height/Length Dosing, 70.2, kg, 12/11/19 9:26:00 EDT, Weight Dosing Start Date: 12/11/19 Status: Ordered polysaccharide iron complex 150 mg oral capsule (7 sources) Start: 03-08-2023 take 1 capsule by mouth every other day Ferrex 150 150 MG 1 capsule Orally qod Feb, Active ProAir HFA 108 (90 Base) MCG/ACT (20 sources) take 2 puff(s) by inhalation every four hours as needed for cough [...] ellipta 200-62.5-25 mcg/act aerosol powder breath activated (9 sources) Start: 02-18-2023 take 1 puff(s) by inhalation once daily Trelegy Ellipta 200-62.5-25 MCG/ACT 1 puff Inhalation Once a day Feb, Active Start: 02-18-2023 take 1 puff(s) by in halation once daily Trelegy Ellipta 200-62.5-25 MCG/ACT 1 [...] Oct, Not-Taking/PRN benzonatate 100 mg oral capsule (18 sources) Non-narcotic Antitussive Start: 11-01-2022 take 1 capsule by mouth three times daily as needed Tessalon Perles 100 MG 1 capsule as needed Orally Three times a day for 7 days Oct, Not-Taking/PRN Claritin-D 12 Hour 5-120 MG (14 sources) [...] MCG PO Daily October 21, 2018 12:00am levothyroxine (S ynthroid, Levoxyl) 88 MCG tablet 1 (one) time each day at the same time 0 Active take 1 tablet by grzegorz once daily Levothyroxine Sodium 100 MCG TAKE 1 TABLET DAILY ON AN EMPTY STOMACH. (REPLACING 88MCG) Orally Once a day for 90 days Active Levothyroxine So dium Active metroNIDAZOLE 0.0075 mg/mg topical gel (20 sources) [...] infection., # 30 cap(s), Refills(s) 3, Pharmacy: [facility], 158, cm, 02/20/23 8:48:00 EST, Height/Length Dosing, 68.5, kg, 02/20/23 8:48:00 EST, Weight Dosing Start Date: 02/20/23 Status: Ordered Start: 12-01-2021 Macrobid 100 m g Cap 100 mg = 1 cap(s), Oral, As Directed, take 1 tablet within 1 hour after intercourse to prevent infection., # 30 cap(s), Refills(s) 1, Pharmacy: [id number], 158, cm, 12/01/21 9:55:00 EDT, Height/Length Dosing, 68, kg, 12/01/21 9:55:00 EDT, Weight... Start Date: 12/01/21 Status: Ordered predniSONE 20 mg oral tablet (20 sources) Start: 12-12-2022 predniSONE 20 MG 1 tablet Orally tid w/ food x 3 days then bid w/ food x 3 days, then qd w/ food x 3 days for 9 days Nov, Not-Taking/PRN Start: 11-01-2022 take 1 tablet by grzegorz th every twelve hours prednisone 20 MG 1 tablet Orally BID for 5 Oct, Not-Taking/PRN sucralfate 1000 mg oral tablet (1 source) Aluminum Complex Start: 12-11-2019 sucralfate ta b 1 gram = 1 tab(s), Oral, QIDACHS, Refills(s) 0 Start Date: 12/11/19 Status: Ordered triamcinolone acetonide 40 mg/ml injectable suspension (20 sources) Corticosteroid Start: 10-10-2021 Kenalog-40 July, 40 mg Start: 05-25-2019 Kenalog -40 mg May, 40 mg Problems Active Problems Problem Classification Problem Date Documented Date Episodic/Chronic Abdominal pain (6 sources) Epigastric pain; Translations: [Epigastric pain] 12-11-2019 Episodic Acute and chronic tonsillitis (2 sources) Chronic disease of tonsils AND/OR adenoids; Translations: [Other chronic diseases of tonsils and adenoids] Chronic Acute bronchitis (4 sources) Acute bronchitis; Translations: [Acute bronchitis, unspecified] Onset: 05-12-19 15 Episodic Allergic reactions (3 sources) Urticaria; Translations: [Unspecified urticaria] Episodic Anxiety disorders (16 sources) Generalized anxiety disorder; Translations: [Generalized anxiety disorder] Chronic Asthma (20 sources) Asthma; Translations: [Mild persistent asthma] Onset: 05-06-19 15 04-12-2021 Chronic Asthma (1 source) Asthma; Translations: [Asthma, unspecified, unspecified status] Onset: 09-28-19 16 Cataract (4 sources) Bilateral cataracts; Translations: [Artificial lens present] Onset: 08-28-19 23 09-04-2019 Chronic Chronic obstructive pulmonary disease and bronchiectasis (1 source) Bronchitis, not specified as acute or chronic Episodic Deficiency and other anemia (7 sources) Iron deficiency anemia due to blood loss; Translations: [Iron deficiency anemia secondary to blood loss (chronic)] Chronic Deficiency and other anemia (2 sources) Iron deficiency anemia secondary to blood loss (chronic) Chronic Deficiency and other anemia (1 source) Anemia, unspecified Episodic Deficiency and other anemia (5 sources) Iron deficiency anemia secondary to inadequate dietary iron intake; Translations: [Other iron deficiency anemias] Episodic Deficiency and other anemia (2 sources) Other iron deficiency anemias Episodic Disorders of lipid metabolism (20 sources) Hyperlipidemia; Translations: [Pure hypercholesterolemia, unspecified] Onset: 09-25-19 18 08-31-2019 Chronic Disorders of teeth and jaw (2 sources) Periapical abscess without sinus tract; Translations: [Periapical abscess without sinus] Episodic Esophageal disorders (19 sources) Gastroesophageal reflux disease; Translations: [Esophageal reflux finding] Onset: 09-28-19 16 12-11-2019 Chronic Essential hypertension (20 sources) Elevated blood pressure; Translations: [Essential (primary) hypertension] Onset: 05-12-19 15 08-31-2019 Chronic Fracture of lower limb (14 sources) Displaced fracture of fifth metatarsal bone, right foot, subsequent encounter for fracture with routine healing; Translations: [Displaced fracture of fifth metatarsal bone, right foot, initial encounter for closed fracture] Onset: 03-13-20 Episodic Gastroduodenal ulcer (except hemorrhage) (8 sources) H/O: gastric ulcer; Translations: [H/O: peptic ulcer] Onset: 12-11-19 14 08-31-2019 Episodic Genitourinary symptoms and ill-defined conditions (4 sources) Mixed incontinence; Translations: [Incontinence] Onset: 12-02-19 Chronic Genitourinary symptoms and ill-defined conditions (6 sources) Sensation as if bladder still full; Translations: [Feeling of incomplete bladder emptying] Onset: 12-02-19 22 Episodic Headache; including migraine (20 sources) Tension-type headache; Translations: [Tension-type headache, unspecified, not intractable] Onset: 01-12-20 16 08-31-2019 Chronic Inflammation; infection of eye (except that caused by tuberculosis or sexually transmitteddisease) (1 source) Keratoconjunctivitis sicca; Translations: [Keratoconjunctivitis sicca, not specified as Sjogren's, bilateral] Onset: 01-15-20 23 01-14-2023 Chronic Joint disorders and dislocations; trauma-related (2 sources) Disorder of right patellofemoral joint; Translations: [Patellofemoral disorders, right knee] Onset: 02-22-20 Chronic Miscellaneous mental health disorders (2 sources) Primary insomnia; Translations: [Primary insomnia] Chronic Nausea and vomiting (4 sources) Nausea; Translations: [Nausea] Onset: 01-12-20 16 Episodic Nutritional deficiencies (16 sources) Vitamin D deficiency; Translations: [Vitamin D deficiency, unspecified] Chronic Osteoarthritis (20 sources) Arthritis of acromioclavicular joint; Translations: [Primary osteoarthritis, right shoulder] Onset: 02-05-20 17 04-12-2021 Chronic Osteoporosis (20 sources) Age-related osteoporosis without current pathological fracture; Translations: [Primary osteoporosis] Onset: 04-09-19 Chronic Other aftercare (1 source) [facility] (current) use of aspirin; Translations: [[employer] CURRENT USE OF ASPIRIN] Onset: 04-09-19 Episodic Other aftercare (3 sources) Other assisted (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 therapy; Translations: [OTH [employer] CURRENT DRUG THERAPY] Onset: 03-13-20 Episodic Other aftercare (1 source) Long-term current use of drug therapy; Translations: [Other assisted (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 therapy] Episodic Other and unspecified benign neoplasm (2 sources) History of polyp of colon 09-04-2019 Episod ic Other bone disease and musculoskeletal deformities (2 [...] left shoulder, not specified as traumatic Onset: 10-11-19 Resolved : 10-11-19 Episodic Other connective tissue disease (2 sources) Prepatellar bursitis of left knee; Translations: [Prepatellar bursitis, left knee] Episodic Other diseases of bladder and urethra (4 sources) Urethral caruncle; Translations: [Urethral caruncle] Onset: 12-02-19 Episodic Other disorders of stomach and duodenum [...] Translations: [PERSONAL HX OF PNEUMONIA RECURRENT] Onset: 04-09-19 Episodic Other nervous system disorders (20 sources) Chronic pain; Translations: [Other chronic pain] Chronic Other non-traumatic joint disorders (2 sources) Pain in left shoulder Onset: 10-11-19 Resolved : 10-11-19 Episodic Other nutritional; endocrine; and metabolic disorders (1 source) Overweight; Translations: [Overweight] Episodic Other nutritional; endocrine; and metabolic disorders (1 source) Overweight; Translations: [Overweight] Episodic Other screening for suspected conditions (not mental disorders or infectious disease) (5 sources) Encounter for screening mammogram for malignant neoplasm of breast; Translations: [Abnormal findings on diagnostic imaging of skull and head] Onset: 01-18-20 16 Episodic Other upper respiratory disease (19 sources) Allergic rhinitis due to pollen; Translations: [Allergic rhinitis due to pollen] 08-31-2019 Chronic Other upper respiratory disease (2 sources) Seasonal allergic rhinitis; Translations: [Other seasonal allergic rhinitis] Onset: 06-12-19 18 Chronic Other upper respiratory disease (11 sources) Allergic rhinitis; Translations: [Allergic rhinitis, unspecified] Chronic Other upper respiratory disease (1 source) Allergic rhinitis, unspecified; Translations: [Allergic rhinitis, unspecified] Chronic Other upper respiratory disease (1 source) Allergic rhinitis due to pollen Chronic Other upper respiratory disease (3 sources) Other allergic rhinitis Chronic Other upper respiratory disease (2 sources) Dysphonia; Translations: [Dysphonia] Episodic Other upper respiratory infections (8 sources) Acute maxillary sinusitis; Translations: [Acute recurrent maxillary sinusitis] Onset: 12-18-19 17 Episodic Otitis media and related conditions (4 sources) Eustachian tube disorder; Translations: [Other specified disorders of Eustachian tube, unspecified ear] Episodic Residual codes; unclassified (1 source) Acquired absence of other specified parts of digestive tract; Translations: [ACQ ABSENCE OTH PART DIGESTV TRACT] Onset: 04-09-19 23 Episodic Residual codes; unclassified (1 source) Asymptomatic menopausal state Episodic Spondylosis; intervertebral disc disorders; other back problems (20 sources) Cervical spondylosis; Translations: [Spondylosis without myelopathy or radiculopathy, cervical region] Onset: 01-12-20 16 08-31-2019 Chronic Spondylosis; intervertebral disc disorders; other back problems (20 sources) Cervico-occipital neuralgia; Translations: [Occipital neuralgia] Episodic Sprains and strains (12 sources) Strain of unspecified muscle, fascia and tendon at shoulder and upper arm level, left arm, initial encounter; Translations: [Strain of muscle and tendon of back wall of thorax, initial encounter] Onset: 02-24-20 14 Episodic Superficial injury; contusion (2 sources) Contusion of left knee; Translations: [Contusion of left knee, initial encounter] Episodic Systemic lupus erythematosus and connective tissue disorders (1 source) Autoimmune disease; Translations: [Autoimmune disease, not elsewhere classified] Onset: 09-25-19 18 Chronic Thyroid disorders (20 sources) Autoimmune hypothyroidism; 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] Onset: 01-30-2008-31-2019 Chronic Unclassified (2 sources) Asymptomatic microscopic hematuria 12-01-2021 Unclassified (2 sources) Finding of sensation of bladder 04-13-2021 Unclassified (1 source) CONTACT W/AND (SUSP) EXPOS COVID-19; Translations: [CONTACT W/AND (SUSP) EXPOS COVID-19] Onset: 04-07-19 Unclassified (2 sources) Exposure to acute respiratory syndrome coronavirus 2; Translations: [Contact with and (suspected) exposure to COVID-19] Unclassified (1 source) Long-term current use of drug therapy; Translations: [Long-term (current) use of other medications] Onset: 09-25-19 18 Unclassified (1 source) Autoimmune disease, not elsewhere classified; Translations: [Autoimmune disease, not elsewhere classified] Onset: 09-25-19 18 Unclassified (1 source) Unspecified urticaria; Translations: [Unspecified urticaria] Unclassified (1 source) Other specified disorders of rotator cuff syndrome of shoulder and allied disorders; Translations: [Other specified disorders of rotator cuff syndrome of shoulder and allied disorders] Onset: 04-11-19 Unclassified (1 source) Long-term (current) use of other medications; Translations: [Long-term (current) use of other medications] Onset: 09-25-19 18 Unclassified (1 source) Bacterial infection, unspecified, in conditions classified elsewhere and of unspecified site; Translations: [Bacterial infection, unspecified, in conditions classified elsewhere and of unspecified site] Onset: 08-08-19 16 Unclassified (1 source) Pain in joint, ankle and foot; Translations: [Pain in joint, ankle and foot] Onset: 11-19-19 16 Urinary tract infections (5 sources) Urinary tract infectious disease; Translations: [Urinary tract infection, site not specified] Onset: 12-02-19 Episodic Past or Other Problems Problem Classification Problem Date Documented Da te Episodic/Chronic Bacterial infection; unspecified site (1 source) Bacterial infectious disease; Translations: [Bacterial infection, unspecified, in conditions classified elsewhere and of unspecified site] Onset: 08-08-2015 Episodic E Codes: Natural/environment (1 source) Overexertion from prolonged static or awkward postures, initial encounter; Translations: [OVEREXERT PROLNG STAT/AWK PST INIT] Onset: 03-13-2022 Episodic Esophageal disorders (6 sources) Esophageal disorders; Translations: [Gastro-esophageal reflux disease with esophagitis, without bleeding] Headache; including migraine (2 sources) Headache; Translations: [Headache] Onset: 01-12-2016 Episodic Inflammation; infection of eye (except that caused by tuberculosis or sexually transmitteddisease) (1 source) 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; Translations: [Unspecified blepharitis right eye, upper and lower eyelids] Onset: 01-14-2023 01-14-2023 Episodic Menopausal disorders (1 source) Hormone replacement [...] Test Name Value Interpretation Reference Range Facility Physician Referralon 024 Physician Referral [id number] Normal [facility] Ambulatory Visit Summaryon 1 04-23-2022 Ambulatory Visit Summary CHESTER MUNIRA :1950 Visit Date:02/20/2023 Ambulatory Visit Instructions Your Diagnosis Mixed incontinence Recurrent UTI Urethral caruncle Tests Performed Urnls Dip Stick Auto w/o Microscopy POC 48[address] Your Care Team Attending Physician - Dewayne VILLEGAS, Asuncion [place] Primary Care Physician - ANDREA WU DO [...] Tab) fluticasone nasal (fluticasone 0.05 mg/inh Nasal [place]) fluticasone/umeclidinium/aiden nterol (Trelegy Ellipta 200 mcg-62.5 mcg-25 [...] Asuncion Buchanan MD Where: [facility] Patient Educationon 02-21-20 Patient [...] pelvic muscle tension or spasms. ? Take gyzf-xni-xcslmzf and prescription medicines only as told by [...] movement i (more content not included)... Normal [facility] Urology Office/Clinic Noteon 02-20-2023 Urology Office/Clinic Note [...] Information Dewayne VILLEGAS, Asuncion [place], URL, [facility] [address] [place] [phone] Additional Instructions: 1 yr Patient Education Pelvic [...] stricture Epigast (more content not included)... Normal [facility] Comment on above: Result Comment: Electronically Signed By : Asuncion Buchanan MD\.br\Date and Time Signed: 02/20/23 18:21 EST\.br\Electronically Co-Signed By: Kimmie Lemus\.br\Date and Time Co-Signed: 02/20/23 09:53 EST POINT OF CARE GLUCOSEon 03-18 Glucose [Mass/Vol] 94 mg/dL Normal 74-106 [facility] Comment on above: Performed By: #### POCGLUC ####[facility] [address] [place] [address]Dr. Dwight Mario Glucose [Mass/Vol] 106 mg/dL Normal 74-106 [facility] Comment on above: Performed By: #### POCGLUC ####[facility] [address] [place] [address]Dr. Dwight Mario Covid-19 PCR (CVDTB)on 03-18 SARS-CoV-2 (COVID-19) RNA GIOVANI+probe Ql (Unsp spec) Not detected Normal NOT DETECTED [facility] Comment on above: Result Comment: This test is not yet morgan roved or cleared by the [place] FDA. When there are no FDA-approved or cleared tests available, and other criteria are met, FDA can make tests available under an emergency access mechanism called an Emergency Use Authorization (EUA). The EUA for this test is supported by the [employer] of Health and Human Service's (HHS's) declaration [...] SARS-CoV-2. Performed By: #### C VDTB #### [facility] [address] [place] [address] Dr. Dwight Mario PROF CHEM 8 (BAS METB)on Anion gap [Moles/Vol] 13.4 mmol/L Normal [facility] Comment on above: Performed By: #### BMP #### [facility] [address] [place] [address] Dr. Dwight Mario Calcium [Mass/Vol] 9.1 mg/dL Normal 8.5-10.1 [facility] Comment on above: Performed By: #### BMP #### [facility] [address] [place] [address] Dr. Dwight Mario Chloride [Moles/Vol] 107 mmol/L Normal 98-107 [facility] Comment on above: Performed By: #### BMP #### [facility] [address] [place] [address] Dr. Dwight Mario CO2 [Moles/Vol] 26.5 mmol/L Normal 21.0-32.0 [facility] Comment on above: Performed By: #### BMP #### [facility] [address] [place] [address] Dr. Dwight Mario Creatinine [Mass/Vol] 0.76 mg/dL Normal 0.55-1.02 [facility] Comment on above: Performed By: #### BMP #### [facility] [address] [place] [address] Dr. Dwight Mario EGFR-AF ETHIOPIAN >60 Normal >=60 [facility] Comment on above: Performed By: #### BMP #### [facility] [address] [place] [address] Dr. Dwight Mario EGFR-NON AF ETHIOPIAN >60 Normal >=60 [facility] Comment on above: Performed By: #### BMP #### [facility] [address] [place] [address] Dr. Dwight Mario Glucose [Mass/Vol] 108 mg/dL Critically high 74-106 [facility] Comment on above: Performed By: #### BMP #### [facility] [address] [place] [address] Dr. Dwight Mario Potassium [Moles/Vol] 3.9 mmol/L Normal 3.5-5.1 [facility] Comment on above: Performed By: #### BMP #### [facility] [address] [place] [address] Dr. Dwight Mario Sodium [Moles/Vol] 143 mmol/L Normal 136-145 [facility] Comment on above: Performed By: #### BMP #### [facility] [address] [place] [address] Dr. Dwight Mario Urea nitrogen [Mass/Vol] 25.0 mg/dL Critically high 7.0-18.0 [facility] Comment on above: Performed By: #### BMP #### [facility] [address] [place] [address] Dr. Dwight Mario Urea nitrogen/Creatin ine [Mass ratio] 32.9 mg/mg Normal [facility] Comment on above: Performed By: #### BMP #### [facility] [address] [place] [address] Dr. Dwight Mario CBC AUTO DIFFon 01-29-2022 BASO # 0.0 103/ul Normal 0.0-0.1 [facility] Comment on above: Performed By: #### CBC #### [facility] [address] [place] [address] Dr. Dwight Mario Basophils/100 WBC (Bld) 0.4 % Normal 0.2-2.0 [facility] Comment on above: Performed By: #### CBC #### [facility] [address] [place] [address] Dr. Dwight Mario EO # 0.3 103/ul Normal 0.0-0.7 [facility] Comment on above: Performed By: #### CBC #### [facility] [address] [place] [address] Dr. Dwight Mario Eosinophils/100 WBC (Bld) 2.8 % Normal 0.9-7.0 [facility] Comment on above: Performed By: #### CBC #### [facility] [address] [place] [address] Dr. Dwight Mario Erythrocyte distribution width (RBC) [Ratio] 14.0 % Normal 11.0-15.0 [facility] Comment on above: Performed By: #### CBC #### [facility] [address] [place] [address] Dr. Dwight Mario Hematocrit (Bld) [Volume fraction] 38.3 % Normal 36.0-48.0 [facility] Comment on above: Performed By: #### CBC #### [facility] [address] [place] [address] Dr. Dwight Mario Hemoglobin (Bld) [Mass/Vol] 12.6 g/dL Normal 12.0-16.0 [facility] Comment on above: Performed By: #### CBC #### [facility] [address] [place] [address] Dr. Dwight Mario IG # 0.03 10e3/ul Normal 0.00-0.03 [facility] Comment on above: Performed By: #### CBC #### [facility] [address] [place] [address] Dr. Dwight Mario IG % 0.3 % Normal 0.0-0.5 [facility] Comment on above: Performed By: #### CBC #### [facility] [address] [place] [address] Dr. Dwight Mario LYMPH # 2.9 103/ul Normal 1.2-3.8 [facility] Comment on above: Performed By: #### CBC #### [facility] [address] [place] [address] Dr. Dwight Mario Lymphocytes/100 WBC (Bld) 29.0 % Normal 20.5-60.0 [facility] Comment on above: Performed By: #### CBC #### [facility] [address] [place] [address] Dr. Dwight Mario MANUAL DIFF REQ NO Normal [facility] Comment on above: Performed By: #### CBC #### [facility] [address] [place] [address] Dr. Dwight Mario MCH (RBC) [Entitic mass] 30.3 pg Normal 26.7-34.0 [facility] Comment on above: Performed By: #### CBC #### [facility] [address] [place] [address] Dr. Dwight Mario MCHC (RBC) [Mass/Vol] 32.9 g/dL Normal 29.9-35.2 [facility] Comment on above: Performed By: #### CBC #### [facility] [address] [place] [address] Dr. Dwight Mario MCV (RBC) [Entitic vol] 92.1 fL Normal 81.0-99.0 [facility] Comment on above: Performed By: #### CBC #### [facility] [address] [place] [address] Dr. Dwight Mario MONO # 0.8 103/ul Normal 0.3-0.8 [facility] Comment on above: Performed By: #### CBC #### [facility] [address] [place] [address] Dr. Dwight Mario Monocytes/100 WBC (Bld) 7.9 % Normal 1.7-12.0 [facility] Comment on above: Performed By: #### CBC #### [facility] [address] [place] [address] Dr. Dwight Mario NEUT # 5.9 103/ul Normal 1.4-6.5 [facility] Comment on above: Performed By: #### CBC #### [facility] [address] [place] [address] Dr. Dwight Mario Neutrophils/100 WBC (Bld) 59.6 % Normal 43.0-75.0 [facility] Comment on above: Performed By: #### CBC #### [facility] [address] [place] [address] Dr. Dwight Mario Platelet mean volume (Bld) [Entitic vol] 9.4 fL Critically low 9.5-13.5 [facility] Comment on above: Performed By: #### CBC #### [facility] [address] [address] [address] Dwight Mario PLT 385 103/ul Normal 150-450 [facility] Comment on above: Performed By: #### CBC #### [facility] [address] [address] [address] Dwight Mario RBC 4.16 106/ul Critically low 4.20-5.40 [facility] Comment on above: Performed By: #### CBC #### [facility] [address] [address] [address] Dwight Mario WBC 10.0 103/ul Normal 4.0-11.0 [facility] Comment on above: Performed By: #### CBC #### [facility] [address] [address] [address] Dwight Mario LIPID PROFILEon 01-29-2022 CHOL-HDL RATIO NORM SEE BELOW Normal [facility] Comment on above: Result Comment: 3.3 - 4.4 LOW RISK 4.4 - 7.1 AVERAGE RISK 7.1 - 11.0 MODERATE RISK >11.0 HIGH RISK Performed By: #### L IPID, BMP, ALT, TSH ####[facility] [address] [place] [address]Dr. Dwight Mario Cholesterol [Mass/Vol] 184 mg/dL Normal <=200 [facility] Comment on above: Performed By: #### LIPID, BMP, ALT, TSH ####[facility] [address] [place] [address]DrJose Mario Cholesterol in HDL [Mass/Vol] 61 mg/dL Critically high 40-60 [facility] Comment on above: Performed By: #### LIPID, BMP, ALT, TSH ####[facility] [address] [place] [address]DrJose Mario Cholesterol in LDL [Mass/Vol] 96.0 mg/dL Normal [facility] Comment on above: Performed By: #### LIPID, BMP, ALT, TSH ####[facility] [address] [place] [address] [address]DrJose Mario Cholesterol.tota l/Cholesterol in HDL [Mass ratio] 3.0 {ratio} Normal [facility] Comment on above: Performed By: #### LIPID, BMP, ALT, TSH ####[facility] [address] [id number]. Dwight Mario HDL NORMAL > or = 60 mg/dl - LO W CARDIOVASCULAR RISK <40 mg/dl - HIGH CARDIOVASCULAR RISK Normal [facility] Comment on above: Performed By: #### LIPID, BMP, ALT, TSH ####[facility] [address] [place] [address]Dr. Dwight Mario LDL CALC NORMAL SEE BELOW Normal [facility] Comment on above: Result Comment: <100 mg/dl OPTIMAL 100 - 129 mg/dl NEAR OR ABOVE OPTIMAL 130 - 159 mg/dl BORDERLINE HIGH 160 - 189 mg/dl HIGH >190 mg/dl VERY HIGH Performed By: #### L IPID, BMP, ALT, TSH ####[facility] [address] [place] [address]Dr. Dwight Fabiano Triglyceride [Mass/Vol] 135 mg/dL Normal <=150 [facility] Comment on above: Performed By: #### LIPID, BMP, ALT, TSH ####[facility] [address] [place] [address]Dr. Dwight Fabiano VLDL CALC 27.0 mg/dL Normal [facility] Comment on above: Performed By: #### LIPID, BMP, ALT, TSH ####[facility] [address] [place] [address]Dr. Dwight Mario MAMM SCREEN 3D ALLEGRA CADon 01-29-2022 MG MAMM SCREEN 3D ALLEGRA CAD Patient: MUNIRA CHESTER Exam Date: 01/29/2022 : 1950 Gender:F Ordering : DR ANDREA WU D.O. Admission #: [id number] Family : DR. MADISON BURNS D.O. Order #: [id number] CLICK HERE TO VIEW EXAM RADIOLOGY REPORT [...] breast cancer at age 61. LOCATION: [facility] BREAST COMPOSITION: Scattered areas fibroglandular [...] MD on 01/29/2022 at 15:25 Normal [facility] PROF CHEM 8 (BAS METB)on Anion gap [Moles/Vol] 9.7 mmol/L Normal [facility] Comment on above: Performed By: #### LIPID, BMP, ALT, TSH ####[facility] [address] [place] [address]Dr. Melissalan Mario Calcium [Mass/Vol] 8.9 mg/dL Normal 8.5-10.1 [facility] Comment on above: Performed By: #### LIPID, BMP, ALT, TSH ####[facility] [address] [place] [address] [address]Dr. Yilan Mario Chloride [Moles/Vol] 105 mmol/L Normal 98-107 [facility] Comment on above: Performed By: #### LIPID, BMP, ALT, TSH ####[facility] [address] [place] [address]Dr. Yilan Mario CO2 [Moles/Vol] 27.3 mmol/L Normal 21.0-32.0 [facility] Comment on above: Performed By: #### LIPID, BMP, ALT, TSH ####[facility] [address] [place] [id number]. Dwight Mario Creatinine [Mass/Vol] 0.80 mg/dL Normal 0.55-1.02 [facility] Comment on above: Performed By: #### LIPID, BMP, ALT, TSH ####[facility] [address] [place] [id number]. Dwight Mario EGFR-AF ETHIOPIAN >60 Normal >=60 [facility] Comment on above: Performed By: #### LIPID, BMP, ALT, TSH ####[facility] [address] [place] [id number]. Dwight Mario EGFR-NON AF ETHIOPIAN >60 Normal >=60 [facility] Comment on above: Performed By: #### LIPID, BMP, ALT, TSH ####[facility] [address] [place] [address]Dr. Dwight Mario Glucose [Mass/Vol] 107 mg/dL Critically high 74-106 [facility] Comment on above: Performed By: #### LIPID, BMP, ALT, TSH ####[facility] [address] [place] [address]Dr. Dwight Mario Potassium [Moles/Vol] 4.0 mmol/L Normal 3.5-5.1 [facility] Comment on above: Performed By: #### LIPID, BMP, ALT, TSH ####[facility] [address] [place] [address]Dr. Dwight Mario Sodium [Moles/Vol] 138 mmol/L Normal 136-145 [facility] Comment on above: Performed By: #### LIPID, BMP, ALT, TSH ####[facility] [address] [place] [address]Dr. Dwight Mario Urea nitrogen [Mass/Vol] 20.0 mg/dL Critically high 7.0-18.0 [facility] Comment on above: Performed By: #### LIPID, BMP, ALT, TSH ####[facility] [address] [place] [address]Dr. Dwight Mario Urea nitrogen/Creatin ine [Mass ratio] 25.0 mg/mg Normal [facility] Comment on above: Performed By: #### LIPID, BMP, ALT, TSH ####[facility] [address] [place], [place] [address]Zz. Dwight Mario SGPTon 01-29-2022 ALT [Catalytic activity/Vol] 26 U/L Normal 14-59 [facility] Comment on above: Performed By: #### LIPID, BMP, ALT, TSH ####[facility] [address] [place], [place] [address]Hu. Dwight Mario TSHon 01-29-2022 TSH 5.901 uIU/mL Critically high 0.358-3.740 [facility] Comment on above: Performed By: #### LIPID, BMP, ALT, TSH ####[facility] [address] [place], [place] [address]Ze. Dwight Mario XR shoulder LT min 2V*on XR shoulder LT min 2V* [facility] Main [place] [address] [place] [address] XRay Report Signed Patient: Munira Chester MR#: [id number] : 1950 Acct:[id number] Age/Sex: 71 / F ADM Date: 10/10/21 Loc: [facility] Room: Type: [facility] Attending Dr: Espinoza Botello MD Copies to: [...] Abelino Prado M.D.10/10/2021 1:25 PM Dictation Location: [place] [address] Transcribed By: [facility] 10/10/21 1325 Dictated By: Abelino Prado II, MD 10/10/21 1324 Signed By: 10/10/21 1325 [facility] MRI SHOULDER LT WO CONon MRI SHOULDER [...] by: YOVANA COTTRELL Date: 2021-10-03 15:02 Normal [facility] Vital Signs Date Time Vital Sign Value Performing Clinician Facility 04-16-2023 09:00-0500 Body height 154.94 cm Andrea Ball Other [facility] Other 04-16-2023 09:00-0500 Body mass index (BMI) [Ratio] 30.12 kg/m2 Andrea Ball Other [facility] Other 04-16-2023 09:00-0500 Body weight 72.3 kg Andrea Ball Other [facility] Other 04-16-2023 09:00-0500 Diastolic blood pressure 86 mm[Hg] Andrea Ball Other [facility] Other 04-16-2023 09:00-0500 Respiratory rate 20 /min Andrea Ball Other [facility] Other 04-16-2023 09:00-0500 SaO2% (BldA) [Mass fraction] 95 % Andrea Ball Other [facility] Other 04-16-2023 09:00-0500 Systolic blood pressure 150 mm[Hg] Andrea Ball Other [facility] Other 02-18-2023 11:45-0500 Body height 154.94 cm Andrea Ball Other [facility] Other 02-18-2023 11:45-0500 Body mass index (BMI) [Ratio] 29.4 kg/m2 Andrea Ball Other [facility] Other 02-18-2023 11:45-0500 Body weight 70.58 kg Andrea Ball Other [facility] Other 02-18-2023 11:45-0500 Diastolic blood pressure 80 mm[Hg] Andrea Ball Other [facility] Other 02-18-2023 11:45-0500 Respiratory rate 12 /min Andrea Ball Other [facility] Other 02-18-2023 11:45-0500 SaO2% (BldA) [Mass fraction] 98 % Andrea Ball Other [facility] Other 02-18-2023 11:45-0500 Systolic blood pressure 148 mm[Hg] Andrea Ball Other [facility] Other 01-25-2023 08:30-0500 Body height 154.94 cm Andrea Ball Other [facility] Other 01-25-2023 08:30-0500 Body mass index (BMI) [Ratio] 29.59 kg/m2 Andrea Ball Other [facility] Other 01-25-2023 08:30-0500 Body weight 71.03 kg Andrea Ball Other [facility] Other 01-25-2023 08:30-0500 Diastolic blood pressure 77 mm[Hg] Andrea Ball Other [facility] Other 01-25-2023 08:30-0500 Respiratory rate 12 /min Andrea Ball Other [facility] Other 01-25-2023 08:30-0500 Systolic blood pressure 118 mm[Hg] Andrea Ball Other [facility] Other 12-12-2022 13:45-0400 Body height 154.94 cm Andrea Ball Other [facility] Other 12-12-2022 13:45-0400 Body mass index (BMI) [Ratio] 29.36 kg/m2 Andrea Ball Other [facility] Other 12-12-2022 13:45-0400 Body weight 70.49 kg Andrea Ball Other [facility] Other 12-12-2022 13:45-0400 Diastolic blood pressure 79 mm[Hg] Andrea Ball Other [facility] Other 12-12-2022 13:45-0400 Respiratory rate 12 /min Andrea Ball Other [facility] Other 12-12-2022 13:45-0400 SaO2% (BldA) [Mass fraction] 98 % Andrea Ball Other [facility] Other 12-12-2022 13:45-0400 Systolic blood pressure 130 mm[Hg] Andrea Ball Other [facility] Other 11-01-2022 15:05-0400 Body height 154.94 cm Shannan Webster Other [facility] Other 11-01-2022 15:05-0400 Body mass index (BMI) [Ratio] 28.34 kg/m2 Shannan Webster Other [facility] Other 11-01-2022 15:05-0400 Body temperature 96.2 [degF] Shannan Webster Other [facility] Other 11-01-2022 15:05-0400 Body weight 68.04 kg Shannan Webster Other [facility] Other 11-01-2022 15:05-0400 Diastolic blood pressure 69 mm[Hg] Shannan Webster Other [facility] Other 11-01-2022 15:05-0400 Respiratory rate 18 /min Shannan Webster Other [facility] Other 11-01-2022 15:05-0400 SaO2% (BldA) [Mass fraction] 99 % Shannan Webster Other [facility] Other 11-01-2022 15:05-0400 Systolic blood pressure 130 mm[Hg] Shannan Webster Other [facility] Other 03-05-2022 15:00-0500 Body height 162.56 cm Luma Chirinos Other [facility] Other 12-01-2021 09:55-0400 Blood Pressure Location [facility] 12-01-2021 09:55-0400 Diastolic blood pressure 89 mm[Hg] [facility] 12-01-2021 09:55-0400 Heart rate 81 /min [facility]uncion [facility] 12-01-2021 09:55-0400 Systolic blood pressure 140 mm[Hg] Asuncion [facility] 10-10-2021 10:15-0400 Body height 162.56 cm Espinoza Botello Other [facility] Other 10-10-2021 10:15-0400 Body mass index (BMI) [Ratio] 24.89 kg/m2 Espinoza Botello Other [facility] Other 10-10-2021 10:15-0400 Body weight 65.77 kg Espinoza Botello Other [facility] Other Encounters Encounter Date Encounter Type Care Provider Facility Start: 02-19-2024 ambulatory Asuncion MitchellJose Howardbharati Facility:[facility] Start: 05-14-2023 ambulatory Del Muhammad lity:[facility] Start: 04-22-2023 [employer] brasher MD Work Phone: [facility] Start: 04-22-2023 [employer] brasher MD Work Phone: [facility] Start: 04-22-2023 Telephone encounter Andrea Ball [facility] Start: 04-22-2023 End: 04-22-2023 ambulatory CHARITO VASQUEZ Not Available Start: 04-19-2023 End: 04-19-2023 ambulatory Andrea Ball Other [facility] Other Start: 04-19-2023 Telephone encounter Andrea Ball [facility] Start: 04-18-2023 Telephone encounter Andrea Ball [facility] Start: 04-18-2023 End: 04-18-2023 ambulatory Andrea Ball Other Facility:[facility] Start: 04-16-2023 End: 04-16-2023 ambulatory Andrea Ball Other [facility] Other Start: 04-16-2023 Office outpatient vi sit 25 minutes Andrea Ball [facility] Start: 04-04-2023 End: 04-04-2023 ambulatory Andrea Ball Other [facility] Other Start: 04-04-2023 Telephone encounter [facility] Start: 03-08-2023 End: 03-08-2023 ambulatory Andrea Wu Other [facility] Other Start: 03-08-2023 Telephone encounter Andrea WALLACE [facility] Start: 03-07-2023 End: 03-07-2023 ambulatory ANA VALIENTE Not Available Start: 03-06-2023 Telephone encounter Andrea [facility]ACE [facility] Start: 03-06-2023 End: 03-06-2023 ambulatory MADISON E JONATHONEDGARD [facility] Other Start: 02-25-2023 End: 02-25-2023 ambulatory Andrea Wu Other [facility] Other Start: 02-25-2023 Telephone encounter Andrea WALLACE [facility] Start: 02-20-2023 End: 02-21-2023 ambulatory Asuncion Buchanan Facility:[facility] Start: 02-20-2023 End: 02-20-2023 Patient encounter procedure Asuncion Buchanan [facility] Start: 02-18-2023 End: 02-18-2023 ambulatory Andrea Wu Other [facility] Other Start: 02-18-2023 Office outpatient vi sit 15 minutes [facility] Start: 02-05-2023 End: 02-05-2023 ambulatory Andrea Wu Other [facility] Other Start: 02-05-2023 Telephone encounter Andrea WALLACE [facility] Start: 01-31-2023 End: 01-31-2023 ambulatory Andrea Wu Other [facility] Other Start: 01-31-2023 Telephone encounter Andrea WALLACE [facility] Start: 01-29-2023 End: 01-29-2023 ambulatory Andrea Wu Other [facility] Other Start: 01-29-2023 Telephone encounter Andrea WALLACE G [facility] Start: 01-25-2023 End: 01-25-2023 ambulatory Andrea Wu Other [facility] Other Start: 01-25-2023 Patient encounter procedure Andrea Wu [facility] Start: 01-25-2023 Telephone encounter Andrea WALLACE [facility] Start: 12-12-2022 End: 12-12-2022 ambulatory Andrea Wu Other [facility] Other Start: 12-12-2022 Office outpatient vi sit 15 minutes Andrea Wu [facility] Start: 11-07-2022 End: 11-07-2022 ambulatory Andrea Wu Other [facility] Other Start: 11-07-2022 Telephone encounter Andrea WALLACE [facility] Start: 11-01-2022 End: 11-01-2022 ambulatory Shannan Webster Other [facility] Other Start: 11-01-2022 Office outpatient vi sit 25 minutes Shannan Webster [facility] Start: 06-27-2022 End: 06-28-[address] JEROME ESPINOSA Facility:[facility] Start: 06-04-2022 End: 06-04-2022 ambulatory Andrea Wu Other [facility] Other Start: 06-04-2022 Telephone encounter Andrea Wu [facility] Start: 05-17-2022 End: 05-18-[address] CAMPOS SHAH Facility:[facility] Start: 04-26-2022 End: 04-27-[address] JEROME ESPINOSA Facility:[facility] Start: 04-25-2022 End: 04-25-2022 ambulatory Andrea [place] Other [facility] Other Start: 04-25-2022 Telephone encounter Andrea Wu MADISON [facility] Start: 04-10-2022 End: 04-10-2022 ambulatory Andrea Wu Other [facility] Other Start: 04-10-2022 Tele[address] Andrea Schwartz [facility] Start: 04-07-2022 Encounter for preprocedural cardiovascular examination [facility] Start: 04-07-2022 Encounter for preprocedural laboratory examination [facility] Start: 04-06-2022 End: 04-06-2022 ambulatory Andrea Wu Other [facility] Other Start: 04-06-2022 Telephone encounter Andrea Wu MADISON Schwartz [facility] Start: 04-05-2022 End: 04-05-[address] JEROME [...] 03-05-2022 End: 03-05-2022 ambulatory Luma Chirinos Other [facility] Other Start: 03-05-2022 Office outpatient vi sit 15 minutes Luma Chirinos [facility] Start: 01-29-2022 End: 01-30-[address] ANDREA WU Facility:[facility] Start: 01-18-2022 Adult health examination Shannan Darin Other [facility] Other Start: 12-01-2021 End: 12-01-2021 Patient encounter procedure Asuncion MitchellJose Dewayne [facility] Start: 10-10-2021 End: 10-10-2021 ambulatory Espinoza Botello Other [facility] Other Start: 10-10-2021 Office outpatient vi sit 25 minutes Espinoza Botello [facility] Start: 10-10-2021 End: 10-10-2021 Patient encounter procedure MD Espinoza Botello Work Phone: [facility] Start: 10-05-2021 End: 10-05-2021 ambulatory Espinoza Botello Other [facility] Other Start: 10-05-2021 Telephone encounter Espinoza Botello [facility] Start: 10-02-2021 End: 10-03-[address] ANDREA WU Facility:[facility] Procedures Date Procedure Procedure Detail Performing Clinician Start: 02-05-2023 Mammography Charito Vasquez MD Work Phone: Start: 10-10-2021 Plain X-ray of left shoulder MD Espinoza kidd Work Phone: Start: 09-07-2019 Colonoscopy Charito Vasquez MD Work Phone: Start: 09-07-2019 Colonoscopy Asuncion Lue Start: 09-07-2019 Esophagogastroduodenoscopy Asuncion Lue Start: 01-16-2015 Colonoscopy Asuncion Lue Comment on above: normal Start: 01-16-2015 Esophagogastroduodenoscopy Asuncion Lue Start: 08-17-2011 Esophagogastroduodenoscopy Asuncion Lue Start: 05-17-2011 Esophagogastroduodenoscopy Asuncion Lue Start: 06-16-2010 Laparoscopic cholecystectomy Asuncion Buchanan Start: 01-16-2010 Colonoscopy Asuncion Buchanan Bilateral cataracts (disorder) Asuncion Bucahnan section Asuncion Buchanan Depression screening Shannan araujo Other Foot structure (body structure) Asuncion Buchanan Ligation of fallopian tube Madie Buchanan Repair of musculoten dinous cuff of shoulder Asuncion Buchanan Screening for malign ant neoplasm of breast Shannan Webster Other Screening for malign ant neoplasm of colon Shannan Webster Other Plan of Treatment Date Care Activity Detail Author Start: 09-06-2029 Screening for malign ant neoplasm of colon [facility] Start: 04-08-2024 End: 04-08-2024 Patient encounter procedure 04/08/2024 9:45 AM EST Office Visit [facility] [address] [place] [address] Madison Burns DO [address] [place] [address] [facility] Start: 02-06-2024 Screening for malign ant neoplasm of breast Mammogram [facility] Start: 01-20-2024 End: 01-20-2024 Patient encounter procedure 01/20/2024 8:15 AM EST Office [facility] [address] [place] [id number] Uriah Kilpatrick, DO [address] [place] [address] [facility] Start: 04-22-2023 End: 04-22-2023 Patient encounter procedure 04/22/2023 11:00 AM EST Office Visit [facility] [address] [place] [address] Charito Vasquez MD [address] [place] [address] Arrived [facility] Comment on above: Arrived Start: 1950 Screening for malign ant neoplasm of colon [facility] Immunizations Immunization Date Immunization Notes Care Provider Fa cili 12-31-2022 Flu Shot - Documentation Purposes Only Andrea Wu Other [facility] Other 12-31-2022 influenza virus vaccine, unspecified formulation Asuncion Lue [facility] 12-22-2021 SARS-CoV-2 (COVID-19 ) [id number] Asuncion Lue [facility] 12-18-2021 influenza virus vaccine, split virus (incl. purified surface antigen) Shannan Webster Other [facility] Other 12-18-2021 influenza virus vaccine, unspecified formulation Asuncion Lue [facility] 07-04-2021 SARS-CoV-2 (COVID-19 ) mRNA-1273 vaccine Asuncion Lue [facility] 01-23-2021 SARS-CoV-2 (COVID-19 ) mRNA-1273 vaccine Asuncion Lue [facility] 11-23-2020 influenza virus vaccine, split virus (incl. purified surface antigen) Shannan Webster Other [facility] Other 11-23-2020 influenza virus vaccine, unspecified formulation Asuncion Lue [facility] 06-02-2020 SARS-CoV-2 (COVID-19 ) mRNA-1273 vaccine Asuncion Lue [facility] 05-05-2020 SARS-CoV-2 (COVID-19 ) mRNA-1273 vaccine Asuncion Lue [facility] 03-18-2020 SARS-CoV-2 (COVID-19 ) mRNA-1273 vaccine Asuncion Lue [facility] Comment on above: Result Comment: 3 sh ots to date 12-07-2019 influenza virus vaccine, split virus (incl. purified surface antigen) Shannan Webster Other [facility] Other 12-07-2019 influenza virus vaccine, unspecified formulation Asuncion Lue [facility] 01-05-2019 influenza virus vaccine, unspecified formulation Asuncion Lue [facility] 01-05-2019 pneumococcal polysaccharide vaccine, 23 valent Asuncion Lue [facility] 12-17-2018 influenza virus vaccine, unspecified formulation Asuncion Lue [facility] 12-19-2017 influenza virus vaccine, unspecified formulation Asuncion Lue [facility] 01-10-2017 influenza virus vaccine, split virus (incl. purified surface antigen) Shannan Webster Other [facility] Other 01-10-2017 influenza virus vaccine, unspecified formulation Asuncion Lue [facility] 01-10-2017 pneumococcal conjuga te vaccine, 13 valent Asuncion Buchanan [facility] 01-04-2016 influenza virus vaccine, unspecified formulation Asuncion Buchanan [facility] 01-04-2016 pneumococcal polysaccharide vaccine, 23 valent Asuncion Buchanan [facility] Payers Date Payer Category Payer Unknown [employer] M [employer] [id number] 2021-Present [address] [place] [address] [id number] 2017 Medicare MEDICARE MEDICAR E PART B [id number] 2017-Present [address] [address] [place] [address] Medicare [id number] 1959 Medicare [id number] 1959 Unknown [id number] [id number] 1952 Unknown [id number] 2.16.840.1.045068.3.579.2.59 1952 Unknown [id number] 2.16.840.1.144790.3.579.2.593 1952 Unknown [id number] 2.16.840.1.203763.3.579.2.593 1952 Unknown [id number] 2.16.840.1.429151.3.579.2.593 1952 Unknown [id number] 2.16.840.1.923268.3.579.2.593 1952 Unknown [id number] 2.16.840.1.614009.3.579.2.593 1952 Unknown [id number] 2.16.840.1.080022.3.579.2.593 1952 Unknown [id number] 2.16.840.1.430822.3.579.2.593 1952 Unknown [id number] 2.16.840.1.972664.3.579.2.593 1952 Unknown [id number] 2.16.840.1.007570.3.579.2.593 1952 Unknown [id number] 2.16.840.1.225810.3.579.2.727 1952 Unknown [id number] 2.16.840.1.132948.3.579.2.727 1952 Unknown [id number] 2.16.840.1.000287.3.579.2.727 1952 Unknown [id number] 2.16.840.1.259665.3.579.2.1259 1952 Unknown [id number] 2.16.840.1.446203.3.579.2.1259 1952 Unknown [id number] 2.16.840.1.049720.3.579.2.1259 Self-pay Self Pay [id number] Unknown [place] BC/BS [id number] Social History Date Type Detail Facility Unknown if ever smoked [facility] Other Start: 03-07-2023 Sex Assigned At N [facility] Other Start: 11-11-2018 End: 03-07-2023 Tobacco smoking status OKIS Never smoked tobacco (finding) [facility] Start: 1950 Sex Assigned At Female F [facility] Tobacco smoking status Never [facility] Start: 03-07-2023 Tobacco use and exposure Smokeless tobacco non-user [facility] Start: 03-07-2023 Alcohol intake Lifetime non-d brian (finding) [facility] Start: 03-07-2023 History of Social function [facility] Start: 03-05-2023 Alcohol Comment Caffeine : soda [facility] Start: 08-28-2022 Gender identity Identifies as female gender (finding) [facility] Medical Equipment Procedure Code Equipment Code Equipment Origin al Text Equipment Identifier Dates Arthroscopy, shoulder ANCHOR SUTURE FT III [id number] FDA Start: 11-11-2018 Functional Status Date Assessment Result Facility 02-20-2023 Functional Status N/A [facility] 12-01-2021 Functional Status N/A [facility] Clinical Notes 10-10-2021 to 04-22-2023 Note Date & Type Note Facility 04-22-2023 Evaluation note Encounter Date Diagnosis Assessment Notes Apr, Moderate persistent asthma without complication (ICD-10 - J45.40) [facility] Other 02-02-2024 Evaluation note* Encounter Date Diagnosis Assessment Notes Treatment Notes Treatment Clinical Notes Apr, Moderate persistent asthma with acute exacerbation (ICD-10 - J45.41) [facility] Other 01-30-2024 Evaluation note* Encounter Date Diagnosis Assessment Notes Treatment Notes Treatment Clinical Notes Mar, Acute bronchitis due to other specified organisms (ICD-10 - J20.8) Instructed to use Robitussin or Mucinex for cough, saline or Flonase NS for congestion, Tylenol for pain and fever. Initiate broad spectrum antibiotic to cover for CAP. Mar, Moderate persistent asthma with acute exacerbation (ICD-10 - J45.41) Continue triple therapy as well as NIKO as needed. Continue Singulair, Claritin, Flonase. Schedule PFT and referral to Pulmonary Sp. Mar, Iron deficiency anem ia secondary to inadequate dietary iron intake (ICD-10 - D50.8) Continue PO Fe. Refer to Hematology for IV Fe therapy. Refer to GI for evaluation and consideration for capsule endoscopy as well as repeat endoscopy. Continue PPI and GERD precautions Mar, Primary hypertension (ICD-10 - I10) This patient is instructed to consume a healthy, low-fat, low-salt diet. They are also encouraged to continue exercise to achieve/maintain a normal BMI. Stopped LUIS ALBERTO w/o resolution of cough Mar, Non-seasonal allergi c rhinitis due to other allergic trigger (ICD-10 - J30.89) Continue Claritin, Singulair and Flonase Scheduled to see gill box fixer. Mar, Gastroesophageal reflux disease with esophagitis without hemorrhage (ICD-10 - K21.00) Avoid lying flat after eating. Avoid eating 2 hours prior to bedtime. Smaller, frequent meals may be better tolerated.Weight loss if overweight.PPI with any heartburn.Monitor for dysphagia. [facility] Other 01-18-2024 Evaluation note* Encounter Date Diagnosis Assessment Notes Treatment Notes Treatment Clinical Notes Mar, Iron deficiency anemia due to chronic blood loss (ICD-10 - D50.0) [facility] Other 12-22-2023 Evaluation note* Encounter Date Diagnosis Assessment Notes Treatment Notes Treatment Clinical Notes Feb, Iron deficiency anemia due to chronic blood loss (ICD-10 - D50.0) [facility] Other 12-20-2023 Evaluation note* Encounter Date Diagnosis Assessment Notes Treatment Notes Treatment Clinical Notes Feb, Anemia (ICD-10 - D64.9) [facility] Other 12-11-2023 Evaluation note* Encounter Date Diagnosis Assessment Notes Treatment Notes Treatment Clinical Notes Feb, Moderate persistent asthma without complication (ICD-10 - J45.40) [facility] Other 12-06-2023 Hospital Discharge instructions Patient Education [...] relieve pelvic muscle tension or spasms. Take vdpw-zkk-yisavfq and prescription medicines only as told by [...] provider. Document Revised: 07/12/2021 Document Reviewed: 07/12/2021 [employer] Patient Education 2022 [employer] 02/20/2023 09:44:59 Kegel Exercises Kegel Exercises Kegel [...] provider. Document Revised: 07/13/2021 Document Reviewed: 07/13/2021 [employer] Patient Education 2022 [employer]. Follow Up Care 01/31/2022 08:50:25 With:Dewayne VILLEGAS, Asuncion London, URL, URO Address: [address] [place] [phone] When: Unknown Comments:[facility]-04-2023 Evaluation note* Encounter Date Diagnosis Assessment Notes Treatment Notes Treatment Clinical Notes Feb, Moderate persistent asthma with acute exacerbation (ICD-10 - J45.41) Holding Breo for trial of Trelegy. Avoid dust, mold, fumes as much as possible. Steroid taper to break cycle of coughing Refer to Remote Control Assembler and Paper Colorer when stable Feb, Non-seasonal allergi c rhinitis due to other allergic trigger (ICD-10 - J30.89) Continue FLonase NS Add Astepro NS Continue Claritin and Singulair Feb, Gastroesophageal reflux disease with esophagitis without hemorrhage (ICD-10 - K21.00) Diet instructions: Smaller portions, avoid eating and laying flat, avoid eating or drinking prior to bedtime. Weight loss. Continue PPI [facility] Other 11-21-2023 Evaluation note* Encounter Date Diagnosis Assessment Notes Treatment Notes Treatment Clinical Notes Jan, Age-related osteopor osis without current pathological fracture (ICD-10 - M81.0) Jan, Hypercholesteremia (ICD-10 - E78.00) [facility] Other 11-14-2023 Evaluation note* Encounter Date Diagnosis Assessment Notes Treatment Notes Treatment Clinical Notes Jan, Menopause (ICD-10 - Z78.0) [facility] Other 11-10-2023 Evaluation note* Encounter Date Diagnosis Assessment Notes Treatment Notes Treatment Clinical Notes Jan, Hypercholesteremia (ICD-10 - E78.00) [facility] Other [id number] Evaluation note* Encounter Date Diagnosis Assessment Notes [...] much improved. Offered PFT and referral to Paper Colorer. Jan, Autoimmune thyroidit is (ICD-10 - E06.3) [...] with esophagitis without hemorrhage (ICD-10 - K21.00) 10 Jan, 2023 LORENZO (generalized anxiety disorder) (ICD-10 - F41.1) [facility] Other 09-27-2023 Evaluation note* Encounter Date Diagnosis Assessment Notes Treatment Notes Treatment Clinical Notes Nov, Moderate persistent asthma with acute exacerbation (ICD-10 - J45.41) Reviewed medication - continue LABA/ICS and NIKO - continue Singulair, Claritin and Flonase Suggested short course of Steroids and antibiotics. Discussed use of LAMA in combination of what she is presently taking CXR if no improvement [facility] Other 08-23-2023 Evaluation note* Encounter Date Diagnosis Assessment Notes Treatment Notes Treatment Clinical Notes Oct, Mild persistent asthma, uncomplicated (ICD-10 - J45.30) [facility] Other 08-17-2023 Evaluation note* Encounter Date Diagnosis [...] understanding and is agreeable to treatment plan [facility] Other 04-12-2023 NotePROCEDURE: XR FOOT RT MIN [...] Electronically authenticated by: JEROME ESPINOSA Date: 2022-06-27 15:36[id number] NotePROCEDURE: XR FOOT RT MIN 3 VIEWS [...] authenticated by: CAMPOS SHAH Date: 2022-05-17 16:27[facility] [id number] NotePROCEDURE: XR FOOT RT MIN 3 VIEWS [...] authenticated by: JEROME ESPINOSA Date: 2022-04-26 09:37[facility] [id number] NotePROCEDURE: XR FOOT RT MIN 3 VIEWS [...] Electronically authenticated by: JEROME ESPINOSA Date: 2022-04-05 14:43[facility]01-19-2023 NotePROCEDURE: XR FOOT RT 2V HISTORY: Pain COMPARISON: XR foot right 03/28/2022 FINDINGS: BONES:Multiple intraoperative spot fluoroscopic images demonstrate placement of a lag screw longitudinally within the base of the fifth metatarsal securing the proximal metaphyseal fracture. SOFT TISSUES:Expected intraoperative findings. EFFUSION:None visible. OTHER: Negative. IMPRESSION: 1. Intraoperative fixation of base of right fifth metatarsal fracture. Electronically authenticated by: JEROME ESPINOSA Date: 2022-04-05 14:41[facility]01-11-2023 NotePROCEDURE: XR FOOT RT MIN 3 VIEWS [...] Electronically authenticated by: JEROME ESPINOSA Date: 2022-03-28 10:17[facility]12-26-2022 NotePROCEDURE: XR FOOT RT MIN 3 VIEWS [...] Electronically authenticated by: JEROME ESPINOSA Date: 2022-03-12 09:46[facility]12-19-2022 Evaluation note* Encounter Date Diagnosis Assessment Notes Treatment Notes Treatment Clinical Notes Feb, Acute pain of left shoulder (ICD-10 - M25.512) Feb, Tear of left supraspinatus tendon (ICD-10 - M75.102) A 1/1cc marcaine / kenalog cortisone injection was performed into the subacromial space under sterile technique. Patient tolerated the injection well with no adverse reaction. [facility] Other 09-16-2022 Hospital Discharge instructions Patient Education [...] (electrical nerve stimulation). For women, using a medical/surgery registered nurse to prevent urine leaks. This is a [...] right after experiencing incontinence. General instructions Take rjvd-zln-rkxzoxe and prescription medicines only as told by [...] 04/11/2005 Document Revised: 03/14/2018 Document Reviewed: 06/13/2017 [employer] Patient Education 2020 [employer]. Follow Up Care 10/20/2021 08:23:44 With:Dewayne VILLEGAS, RANDAL Arizmendi, [facility] Address: When: Unknown [facility] 2022 Evaluation note* Encounter Date Diagnosis [...] the injection well with no adverse reaction. [facility] Other Evaluation + Plan note Future Appointments Appointment Date:01/31/2022 08:00:00 AM Scheduled Provider:Asuncion Buchanan MD Location:[facility] Appointment Type:URO Office Visit [facility] Evaluation + Plan note Future Appointments Appointment Date:02/19/2024 08:00:00 AM Scheduled Provider:Asuncion Buchanan MD Location:[facility] Appointment Type:URO Office Visit [facility] evaluation noteNo InformationNort [employer] Other Evaluation noteNo assessment information available [facility] Work Phone: history general Narrative - Reported* Type Description [...] above Hospitalization History blood transfusion from b [facility] Other history general Narrative - Reported* Type [...] above Hospitalization History blood transfusion from b Glio Other history general Narrative - Reported* Type [...] above Hospitalization History blood transfusion from b [facility] Other History general Narrative - Reported* Type [...] above Hospitalization History blood transfusion from b [facility] Other Hisrljm general Narrative - Reported* Type Description Date [...] to kill thyroid Surgical History EGD, Colonoscopy 2019 Surgical History gall bladder removed Surgical History tubal ligation Surgical History rotator cuff and bicep repair 0 10/2018 Surgical History ORIF right 5th MT fracture 04/06 Surgical History cataract b/l Hospitalization History see above Hospitalization History blood transfusion from [facility] Other Hospital course Narrative No data available for this section [facility] [employer] Progress note No data available for this section [facility] [employer] Reason for referral (narrative)* Reason *FU 04/23 Referral for iron deficiency anemia. Diagnosis 1 Iron deficiency anem ia secondary to inadequate dietary iron intake (D50.8) Referral Organization [facility] kenny Referring Provider First Name Andrea Referring Provider Last Name [place] Referring Provider Specialty Internal Me dicine Referred Organization [facility] Referred Provider AZAM VILLA Referred Address [address], [place],[address] Referred Provider Specialty Hematology Referral Priority Routine General Notes Patient w/ iron defi ciency anemia, not responding to PO iron supplement. Her last EGD, colonoscopy was in 2019 and she denies symptoms of GIB. She will be sent back to GI to consider capsule endoscopy as well as repeat EGD. However, she has asthma and the anemia has resulted in increased dyspnea and fatigue. Alla Castillo 04/16/2023 10:37:08 AM >received today, attachments made, waiting for notes to be locked Alla Castillo 04/16/2023 03:12:51 PM >notes are locked, referral faxed Clinical Notes Include labs results p: [id number] f: [id number] Reason Referral for pe rsistent cough and wheezing Diagnosis 1 Moderate persistent asthma with acute exacerbation (J45.41) Referral Organization [facility] kenny Referring Provider First Name Andrea Referring Provider Last Name [place] Referring Provider Specialty Internal Me dicine Referred Organization [facility] Referred Provider Edouard Espinosa Referred Address [address], [place],[address] Referred Provider Specialty Pulmonary Di seases Referral Priority Routine General Notes Patient w/ allergic rhinitis and asthma w/ deterioration of her symptoms over the past year. Her medications have been maximized and alternative etiology for cough and wheezing addressed. She has been referred to an Remote Control Assembler for evaluation and scheduled for a PFT. Alla Castillo 04/16/2023 10:39:47 AM >received today, waiting for notes to be locked, and for CXR LABS AND PFT TO BE COMPLETED Shannan Weinberg 04/18/2023 09:54:53 AM > Patient is scheduled with Dr Espinosa's office on 05/15 at 9am Clinical Notes Include CXR, labs an d PFT when completed Reason *FU 04/24 Referral for opinion on further testing for iron deficiency anemia Diagnosis 1 Iron deficiency anem ia secondary to inadequate dietary iron intake (D50.8) Referral Organization [facility] [place] Referring Provider First Name Andrea Referring Provider Last Name [place] Referring Provider Specialty Internal Me dicine Referred Organization [facility] [address] [address], [place],[address] Referred Provider Specialty Gastroentero logy Referral Priority Routine General Notes Mrs. Chester is be ing referred for iron deficiency anemia. This was found during routine lab testing. She denies heartburn, dysphagia or hemoptysis. She denies change in appetite, abdominal pain, melena or hematochezia. She completed an EGD and colonoscopy in 2019. I am referring this patient, to obtain your opinion if she should have the EGD or colonoscopy repeated or should she have a capsule endoscopy scheduled. She is also being referred to Hematology for IV iron and evaluation. Alla Castillo 04/17/2023 04:58:48 PM >received today, multiple attachments made, notes locked, referral faxed Clinical Notes f: [id number] [employer] Other Reason for referral (narrative)* Reason *FU 04/23 Referral for iron deficiency anemia. Diagnosis 1 Iron deficiency anem ia secondary to inadequate dietary iron intake (D50.8) Referral Organization [facility] [place] [facility] kenny Referring Provider First Name Andrea Referring Provider Last Name [place] Referring Provider Specialty Internal Me dicine Referred Organization [facility] Referred Provider AZAM VILLA Referred Address [address], [place],[address] Referred Provider Specialty Hematology Referral Priority Routine General Notes Patient w/ iron defi ciency anemia, not responding to PO iron supplement. Her last EGD, colonoscopy was in 2019 and she denies symptoms of GIB. She will be sent back to GI to consider capsule endoscopy as well as repeat EGD. However, she has asthma and the anemia has resulted in increased dyspnea and fatigue. Alla Castillo 04/16/2023 10:37:08 AM >received today, attachments made, waiting for notes to be locked Alla Castillo 04/16/2023 03:12:51 PM >notes are locked, referral faxed Clinical Notes Include labs results p: [id number] f: [id number] Reason Referral for pe rsistent cough and wheezing Diagnosis 1 Moderate persistent asthma with acute exacerbation (J45.41) Referral Organization [facility] kenny Referring Provider First Name Andrea Referring Provider Last Name [place] Referring Provider Specialty Internal Me dicine Referred Organization [facility] Referred Provider Edouard Espinosa Referred Address [address], [place],[address] Referred Provider Specialty Pulmonary Di pura Referral Priority Routine General Notes Patient w/ allergic rhinitis and asthma w/ deterioration of her symptoms over the past year. Her medications have been maximized and alternative etiology for cough and wheezing addressed. She has been referred to an Remote Control Assembler for evaluation and scheduled for a PFT. MaisandroAlla 04/16/2023 10:39:47 AM >received today, waiting for notes to be locked, and for CXR LABS AND PFT TO BE COMPLETED Clinical Notes Include CXR, labs an d PFT when completed Reason Referral for opinion on further testing for iron deficiency anemia Diagnosis 1 Iron deficiency anem ia secondary to inadequate dietary iron intake (D50.8) Referral Organization [facility] kenny Referring Provider First Name Andrea Referring Provider Last Name [place] Referring Provider Specialty Internal Me dicine Referred Organization [facility] Referred Address [address],[place], [place],[address] Referred Provider Specialty Gastroentero logy Referral Priority Routine General Notes Mrs. Chester is be ing referred for iron deficiency anemia. This was found during routine lab testing. She denies heartburn, dysphagia or hemoptysis. She denies change in appetite, abdominal pain, melena or hematochezia. She completed an EGD and colonoscopy in 2019. I am referring this patient, to obtain your opinion if she should have the EGD or colonoscopy repeated or should she have a capsule endoscopy scheduled. She is also being referred to Hematology for IV iron and evaluation. [employer] Other Summary Purpose Family History Relationship Condition Age [...] ALL SUMMAR LONGNo InformationwellnessOrdermamm/lab resultsRefillcough/wheezingUpdateRepeat LabsLab resultsRepeat LabsCT and PFT OrderCheck UpAllergic to contrastMedication WantedCheck Up INFORMATION SOURCE (unrecogn ized section and content) DATE CREATED AUTHOR 10/11/2021 [facility] DATE CREATED AUTHOR AUTHOR'S ORGANIZ ATION 07/02/2022 [facility] DATE CREATED AUTHOR AUTHOR'S ORGANIZ ATION 04/19/2023 Garay Howard [facility] DATE CREATED AUTHOR AUTHOR'S ORGANIZ ATION 04/23/2023 [facility] EPIC Care Teams (unrecognized sec tion and content) Team Status: Inactive Member Role Status Dates Espinoza Botello MD Attending Provider Active Occupational Therapist Aide Relationship Specialty Start Date End Date Andrea Wu MD [address] [place] [address] PCP - General Internal Medicine 08/27/22 Goals (unrecognized section and content) Goals may [...] BE BASED ON THE PRIMARY CLINICAL RECORDS. [employer] [facility]. provides no warranty or guarantee of the accuracy or completeness of information in this document.
--- NOTE | 2023-05-07 07:50 | CT_ITS ---
The [address] [address] Patient Name: SIA ALEXANDER MRN: [id number] date: 1950 Sex: F Assigned Patient Location: CT Current Patient Location: CT Accession/Order Number: [id number] Exam Date: 05/07/2023 08:02 Report Date: 05/07/2023 12:32 At the request of: CHUNG GOLDEN Procedure: CT chest wo con EXAMINATION: CT chest wo con HISTORY: Moderate Persistent Asthma With Acute Exacerbation J45.41 ; chronic cough COMPARISON: No relevant comparison available. TECHNIQUE: Multi-planar CT images were obtained without and/or with IV contrast as indicated by examination type. Axial, Coronal, and Sagittal images. Dose reduction techniques were achieved by using automated exposure control and/or adjustment of mA and/or kV according to patient size and/or use of iterative reconstruction technique. FINDINGS: LUNGS: Trace amount of stranding within right middle lobe. A few tiny nodules; nonspecific but suspected represent granulomas. PLEURA: No mass, effusion, or pneumothorax. VASCULATURE: No abnormality. AMANDEEP: No mass or adenopathy. MEDIASTINUM: No mass or adenopathy. CARDIAC: No enlargement, pericardial thickening, or significant calcification. AORTA: No aneurysm or dissection. CHEST WALL: No mass or axillary adenopathy. BONES: No bone lesion or fracture. LIMITED ABDOMEN: No suspicious findings Limited images of the upper abdomen. OTHER: Negative. CT/CT chest wo con IMPRESSION: 1. Trace amount stranding within right middle lobe; atelectasis versus scarring versus infiltrates. Electronically authenticated by: JEROME ESPINOSA Date: 05/07/2023 12:32
--- NOTE | 2023-05-07 09:08 | RT_ITS ---
The [facility] Test Date: 2023-05-07 Pat Name: SIA ALEXANDER Department: Room: - Gender: Female [employer] Operator: Vipin Davey RRT : 1950 Requested By: CHUNG GOLDEN Order Number: [id number] Reading MD: CHUNG GOLDEN Interpretive Statements The FVC, FEV1, FEV1/FVC ratio and RZP37-64% are within normal limits. The MVV is within normal limits. The airway resistance is normal. The reduced diffusing capacity indicates a mild loss of functional alveolar capillary surface. Spirometry: FVC 91% normal FEV1 104% normal FEV1/FVC 86 normal MVV 114% normal Volumes: TLC 90% normal RV/TLC 90% normal Diffusion: DLCO 66% decreased FLow Volume loop normal appearance Impression: No osbstructive or restrictive lung defect noted. Decreased diffusion capacity, consider early ILD, pneumonitis or pulmonary vascular disorders Electronically Signed On 05-13-2023 23:37:47 EST by CHUNG GOLDEN
== END 2023-05-07 07:45 | disposition home or self-care (01) ==
LOC: CT 07:44
PROVIDERS: PCP Internal Medicine; Visit Provider Internal Medicine
DX: R06.1 Stridor (principal); J45.41 Moderate persistent asthma with (acute) exacerbation
CPT/HCPCS: 70490; 71250; 94010; 94726; 94729

== ENCOUNTER 2023-05-07 07:45 | Outpatient (OUT) | payer MEDICARE, OTHER, SELFPAY ==
--- OUTSIDE RECORDS SUMMARY | 2023-05-07 07:48 | XMS_ITS | CCD ---
Author Name Unknown Address [address] [place] [address] Organization [facility] Care Team Providers Care Clinical Laboratory Assistant Name Role Phone Espinoza Botello Unavailable ANDERA WU Primary Care Physician [phone] Andrea Wu Unavailable Luma Chirinos Unavailable PABLO, [...] Buchanan Attending Unavailable Del Nettles Attending Unavailable CHARITO VASQUEZ Attending Unavailable MADISON BURNS Attending Unavailable ANA VALIENTE Attending Unavailable Andrea Wu MD Primary Care Provider Allergies Allergy Classification Reported Allergen(s) Allergy Type Date of Onset Reaction(s) Facility (20 sources) Amoxicillin Drug Allergy 10-22-19 19 Rash, Unknown [facility] (20 sources) Sulfacetamide / Sulfur Drug Allergy Unknown [facility] Contacts+ Other (20 sources) idp dye Propensity to adverse reactions Unknown [facility] Contacts+ Other (1 source) Sulfonamides (Antibiotic) Allergy to substance 10-22-19 19 Unknown Reaction [facility] (1 source) wasp venom Allergy to substance 10-22-19 19 Anaphylaxis [facility] (1 source) bee venom protein (honey bee) Allergy to substance 10-22-19 19 Anaphylaxis [facility] (2 sources) Iodinated Contrast Media Allergy to substance 12-08-19 08 Other, Shortness of breath, Unknown [facility] (3 sources) Bee/Wasp/Ant venom; Translations: [Bee [...] drugs] Drug allergy Angioedema (disorder) [facility] [place] (1 source) bee venom Drug allergy (disorder) [facility] (1 source) Iodine (And Iodine Containting Drugs) Drug allergy (disorder) 01-19-20 15 [facility] (1 source) Penicillins Drug allergy (disorder) [facility] (1 source) Sulfonamides (Antibiotic) Drug allergy (disorder) 03-18-18 56 [facility] (2 sources) Iodine / Sodium Iodide Drug Allergy Unknown [facility] Other (18 sources) Substance with penicillin structure and antibacterial mechanism of action (substance) Drug allergy Unknown [employer] Other (19 sources) Substance with sulfonamide structure and antibacterial mechanism of action (substance) Drug allergy 12-08-19 08 Unknown [employer] Other (2 sources) Allergies Reconciled Propensity to adverse reactions Unknown [employer] Other (2 sources) patient allergy list reviewed by nurse or physicia Propensity to adverse reactions 09-25-19 Comment:Done [employer] Other (1 source) Penicillin G Drug Allergy [...] PO As Directed October 21, 2018 12:00am [id number] 200 actuat albuterol 0.09 mg/actuat metered dose [...] 0.5 tablet by mouth four times daily Guudrqqxmkvn-Qen-P affeine Active 0.5 TAB PO Four times [...] apply pea sized amount to urethra 2x/wk, [facility], 158, cm, 02/20/23 8:48:00 EST, Height/Length Dosing, 68.5, kg, 02/20/23 8:48:00 EST, Weight Dosing 0 02/20/2023 Active Start: 02-20-2023 estradiol 0.1 mg/g Vag Crm See Instructions, 42.5 gm, Refill(s) 0, apply pea sized amount to urethra 2x/wk, [facility], 158, cm, 02/20/23 8:48:00 EST, Height/Length Dosing, 68.5, kg, 02/20/23 8:48:00 EST, Weight Dosing Start Date: 02/20/23 Status: Ordered Start: 04-13-2021 estradiol 0.1 mg/g vaginal cream See Instructions, Apply pea sized amount to external urethral 3 times a week for 2 weeks (at bedtime), then twice a week after for maintenance, # 42.5 gm, Refills(s) 1, Pharmacy: [address], 158, cm, 04/13/21 9:47:00 EST, Height/Length [...] Start: 09-02-2019 fluticasone 0. 05 mg/inh Nasal [place] 2 spray(s), Nasal, Daily, Refill(s) 0 Start [...] Inhalation daily Active fluticasone 0.05 mg/inh Nasal [place] (1 source) Start: 09-02-2019 fluticasone 0.05 mg/inh Nasal [place] 2 spray(s), Nasal, Daily, Refill(s) 0 Start [...] 30 tab(s), Refills(s) 6, [facility]: [id number], 158, cm, 12/01/21 9:55:00 EDT, Height/Length Dosing, [...] tab(s), Refills(s) 1, [facility]: [facility], 154.9, cm, 12/11/19 9:26:00 EDT, Height/Length [...] infection., # 30 cap(s), Refills(s) 3, Pharmacy: [facility], 158, cm, 02/20/23 8:48:00 EST, Height/Length Dosing, 68.5, kg, 02/20/23 8:48:00 EST, Weight Dosing Start Date: 02/20/23 Status: Ordered Start: 12-01-2021 Macrobid 100 m g Cap 100 mg = 1 cap(s), Oral, As Directed, take 1 tablet within 1 hour after intercourse to prevent infection., # 30 cap(s), Refills(s) 1, Pharmacy: [id number], 158, cm, 12/01/21 9:55:00 EDT, Height/Length Dosing, [...] Onset: 04-09-19 Chronic Other aftercare (1 source) longterm (current) use of aspirin; Translations: [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 CURRENT USE OF ASPIRIN] Onset: 04-09-19 Episodic Other aftercare (3 sources) Other halfway (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 therapy; Translations: [OTH 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 CURRENT DRUG THERAPY] Onset: 03-13-20 Episodic Other aftercare (1 source) Long-term current use of drug therapy; Translations: [Other halfway (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 therapy] Episodic Other and unspecified [...] Range Facility Physician Referralon 024 Physician Referral [id number] Normal [facility] Ambulatory Visit Summaryon 1 04-23-2022 Ambulatory Visit Summary CHESTER MUNIRA :1950 Visit Date:02/20/2023 Ambulatory Visit Instructions Your Diagnosis Mixed incontinence Recurrent UTI Urethral caruncle Tests Performed Urnls Dip Stick Auto w/o Microscopy POC [id number] Your Care Team Attending Physician - Dewayne [...] Tab) fluticasone nasal (fluticasone 0.05 mg/inh Nasal [place]) fluticasone/umeclidinium/aiden nterol (Trelegy Ellipta 200 mcg-62.5 mcg-25 [...] Asuncion Buchanan MD Where: [facility] Patient Educationon 02-21-20 Patient Education [...] pelvic muscle tension or spasms. ? Take unky-qih-jifwtoa and prescription medicines only as told by [...] movement i (more content not included)... Normal [facility] Urology Office/Clinic Noteon 02-20-2023 Urology Office/Clinic Note [...] Information Dewayne VILLEGAS, Asuncion [place], URL, [facility] [address] [place] [phone] Additional Instructions: 1 yr Patient Education Pelvic [...] stricture Epigast (more content not included)... Normal [facility] Comment on above: Result Comment: Electronically Signed By : Asuncion Buchanan MD\.br\Date and Time Signed: 02/20/23 18:21 EST\.br\Electronically Co-Signed By: Kimmie Lemus\.br\Date and Time Co-Signed: 02/20/23 09:53 EST POINT OF CARE GLUCOSEon 03-18 Glucose [Mass/Vol] 94 mg/dL Normal 74-106 [facility] Comment on above: Performed By: #### POCGLUC ####[facility] [address] [place] [address]Dr. Dwight Mario Glucose [Mass/Vol] 106 mg/dL Normal 74-106 [facility] Comment on above: Performed By: #### POCGLUC ####[facility] [address] [place] [address]Dr. Dwight Mario Covid-19 PCR (CVDTB)on 03-18 SARS-CoV-2 (COVID-19) RNA GIOVANI+probe Ql (Unsp spec) Not detected Normal NOT DETECTED [facility] Comment on above: Result Comment: This test is not yet morgan roved or cleared by the [place] FDA. When there are no FDA-approved or cleared tests available, and other criteria are met, FDA can make tests available under an emergency access mechanism called an Emergency Use Authorization (EUA). The EUA for this test is supported by the Customer Service Consultant of Health and Human Service's (HHS's) declaration [...] SARS-CoV-2. Performed By: #### C VDTB #### [facility] [address] [place] [address] Dr. Dwight Mario PROF CHEM 8 (BAS METB)on Anion gap [Moles/Vol] 13.4 mmol/L Normal [facility] Comment on above: Performed By: #### BMP #### [facility] [address] [place] [address] Dr. Dwight Mario Calcium [Mass/Vol] 9.1 mg/dL Normal 8.5-10.1 [facility] Comment on above: Performed By: #### BMP #### [facility] [address] [place] [address] Dr. Dwight Mario Chloride [Moles/Vol] 107 mmol/L Normal 98-107 [facility] Comment on above: Performed By: #### BMP #### [facility] [address] [place] [address] Dr. Dwight Mario CO2 [Moles/Vol] 26.5 mmol/L Normal 21.0-32.0 [facility] Comment on above: Performed By: #### BMP #### [facility] [address] [place] [address] Dr. Dwight Mario Creatinine [Mass/Vol] 0.76 mg/dL Normal 0.55-1.02 [facility] Comment on above: Performed By: #### BMP #### [facility] [address] [place] [address] Dr. Dwight Mario EGFR-AF UKRAINIAN >60 Normal >=60 [facility] Comment on above: Performed By: #### BMP #### [facility] [address] [place] [address] Dr. Dwight Mario EGFR-NON AF UKRAINIAN >60 Normal >=60 [facility] Comment on above: Performed By: #### BMP #### [facility] [address] [place] [address] Dr. Dwight Mario Glucose [Mass/Vol] 108 mg/dL Critically high 74-106 [facility] Comment on above: Performed By: #### BMP #### [facility] [address] [place] [address] Dr. Dwight Mario Potassium [Moles/Vol] 3.9 mmol/L Normal 3.5-5.1 [facility] Comment on above: Performed By: #### BMP #### [facility] [address] [place] [address] Dr. Dwight Mario Sodium [Moles/Vol] 143 mmol/L Normal 136-145 [facility] Comment on above: Performed By: #### BMP #### [facility] [address] [place] [address] Dr. Dwight Mario Urea nitrogen [Mass/Vol] 25.0 mg/dL Critically high 7.0-18.0 [facility] Comment on above: Performed By: #### BMP #### [facility] [address] [place] [address] Dr. Dwight Mario Urea nitrogen/Creatin ine [Mass ratio] 32.9 mg/mg Normal [facility] Comment on above: Performed By: #### BMP #### [facility] [address] [place] [address] Dr. Dwight Mario CBC AUTO DIFFon 01-29-2022 BASO # 0.0 103/ul Normal 0.0-0.1 [facility] Comment on above: Performed By: #### CBC #### [facility] [address] [place] [address] Dr. Dwight Mario Basophils/100 WBC (Bld) 0.4 % Normal 0.2-2.0 [facility] Comment on above: Performed By: #### CBC #### [facility] [address] [place] [address] Dr. Dwight Mario EO # 0.3 103/ul Normal 0.0-0.7 [facility] Comment on above: Performed By: #### CBC #### [facility] [address] [place] [address] Dr. Dwight Mario Eosinophils/100 WBC (Bld) 2.8 % Normal 0.9-7.0 [facility] Comment on above: Performed By: #### CBC #### [facility] [address] [place] [address] Dr. Dwight Mario Erythrocyte distribution width (RBC) [Ratio] 14.0 % Normal 11.0-15.0 [facility] Comment on above: Performed By: #### CBC #### [facility] [address] [place] [address] Dr. Dwight Mario Hematocrit (Bld) [Volume fraction] 38.3 % Normal 36.0-48.0 [facility] Comment on above: Performed By: #### CBC #### [facility] [address] [place] [address] Dr. Dwight Mario Hemoglobin (Bld) [Mass/Vol] 12.6 g/dL Normal 12.0-16.0 [facility] Comment on above: Performed By: #### CBC #### [facility] [address] [place] [address] Dr. Dwight Mario IG # 0.03 10e3/ul Normal 0.00-0.03 [facility] Comment on above: Performed By: #### CBC #### [facility] [address] [place] [address] Dr. Dwight Mario IG % 0.3 % Normal 0.0-0.5 [facility] Comment on above: Performed By: #### CBC #### [facility] [address] [place] [address] Dr. Dwight Mario LYMPH # 2.9 103/ul Normal 1.2-3.8 [facility] Comment on above: Performed By: #### CBC #### [facility] [address] [place] [address] Dr. Dwight Mario Lymphocytes/100 WBC (Bld) 29.0 % Normal 20.5-60.0 [facility] Comment on above: Performed By: #### CBC #### [facility] [address] [place] [address] Dr. Dwight Mario MANUAL DIFF REQ NO Normal [facility] Comment on above: Performed By: #### CBC #### [facility] [address] [place] [address] Dr. Dwight Mario MCH (RBC) [Entitic mass] 30.3 pg Normal 26.7-34.0 [facility] Comment on above: Performed By: #### CBC #### [facility] [address] [place] [address] Dr. Dwight Mario MCHC (RBC) [Mass/Vol] 32.9 g/dL Normal 29.9-35.2 [facility] Comment on above: Performed By: #### CBC #### [facility] [address] [place] [address] Dr. Dwight Mario MCV (RBC) [Entitic vol] 92.1 fL Normal 81.0-99.0 [facility] Comment on above: Performed By: #### CBC #### [facility] [address] [place] [address] Dr. Dwight Mario MONO # 0.8 103/ul Normal 0.3-0.8 [facility] Comment on above: Performed By: #### CBC #### [facility] [address] [place] [address] Dr. Dwight Mario Monocytes/100 WBC (Bld) 7.9 % Normal 1.7-12.0 [facility] Comment on above: Performed By: #### CBC #### [facility] [address] [place] [address] Dr. Dwight Mario NEUT # 5.9 103/ul Normal 1.4-6.5 [facility] Comment on above: Performed By: #### CBC #### [facility] [address] [place] [address] Dr. Dwight Mario Neutrophils/100 WBC (Bld) 59.6 % Normal 43.0-75.0 [facility] Comment on above: Performed By: #### CBC #### [facility] [address] [place] [address] Dr. Dwight Mario Platelet mean volume (Bld) [Entitic vol] 9.4 fL Critically low 9.5-13.5 [facility] Comment on above: Performed By: #### CBC #### [facility] [address] [address] [address] Dwight Mario PLT 385 103/ul Normal 150-450 [facility] Comment on above: Performed By: #### CBC #### [facility] [address] [address] [address] Dwight Mario RBC 4.16 106/ul Critically low 4.20-5.40 [facility] Comment on above: Performed By: #### CBC #### [facility] [address] [address] [address] Dwight Mario WBC 10.0 103/ul Normal 4.0-11.0 [facility] Comment on above: Performed By: #### CBC #### [facility] [address] [address] [address] Dwight Mario LIPID PROFILEon 01-29-2022 CHOL-HDL RATIO NORM SEE BELOW Normal [facility] Comment on above: Result Comment: 3.3 - 4.4 LOW RISK 4.4 - 7.1 AVERAGE RISK 7.1 - 11.0 MODERATE RISK >11.0 HIGH RISK Performed By: #### L IPID, BMP, ALT, TSH ####[facility] [address] [address]Dr. Dwight Mario Cholesterol [Mass/Vol] 184 mg/dL Normal <=200 [facility] Comment on above: Performed By: #### LIPID, BMP, ALT, TSH ####[facility] [address] [address]DrJose Mario Cholesterol in HDL [Mass/Vol] 61 mg/dL Critically high 40-60 [facility] Comment on above: Performed By: #### LIPID, BMP, ALT, TSH ####[facility] [address] [address]DrJose Mario Cholesterol in LDL [Mass/Vol] 96.0 mg/dL Normal [facility] Comment on above: Performed By: #### LIPID, BMP, ALT, TSH ####[facility] [address] [place] [address]DrJoes Mario Cholesterol.tota l/Cholesterol in HDL [Mass ratio] 3.0 {ratio} Normal [facility] Comment on above: Performed By: #### LIPID, BMP, ALT, TSH ####[facility] [address] [place] [address]Dr. Dwight Mario HDL NORMAL > or = 60 mg/dl - LO W CARDIOVASCULAR RISK <40 mg/dl - HIGH CARDIOVASCULAR RISK Normal [facility] Comment on above: Performed By: #### LIPID, BMP, ALT, TSH ####[facility] [address] [place] [address]Dr. Dwight Mario LDL CALC NORMAL SEE BELOW Normal [facility] Comment on above: Result Comment: <100 mg/dl OPTIMAL 100 - 129 mg/dl NEAR OR ABOVE OPTIMAL 130 - 159 mg/dl BORDERLINE HIGH 160 - 189 mg/dl HIGH >190 mg/dl VERY HIGH Performed By: #### L IPID, BMP, ALT, TSH ####[facility] [address] [address]Dr. Dwight Fabiano Triglyceride [Mass/Vol] 135 mg/dL Normal <=150 [facility] Comment on above: Performed By: #### LIPID, BMP, ALT, TSH ####[facility] [address] [address]Dr. Dwight Fabiano VLDL CALC 27.0 mg/dL Normal [facility] Comment on above: Performed By: #### LIPID, BMP, ALT, TSH ####[facility] [address] [place] [address]Dr. Dwight Mario MAMM SCREEN 3D ALLEGRA CADon 01-29-2022 MG MAMM SCREEN 3D ALLEGRA CAD Patient: MUNIRA CHESTER Exam Date: 01/29/2022 : 1950 Gender:F Ordering : DR ANDREA WU D.O. Admission #: [id number] Family : DR. MADISON BURNS D.O. Order #: [id number] CLICK HERE TO VIEW EXAM RADIOLOGY REPORT [...] breast cancer at age 61. LOCATION: [facility] BREAST COMPOSITION: Scattered areas fibroglandular [...] MD on 01/29/2022 at 15:25 Normal [facility] PROF CHEM 8 (BAS METB)on Anion gap [Moles/Vol] 9.7 mmol/L Normal [facility] Comment on above: Performed By: #### LIPID, BMP, ALT, TSH ####[facility] [address] [address]Dr. Melissalan Mario Calcium [Mass/Vol] 8.9 mg/dL Normal 8.5-10.1 [facility] Comment on above: Performed By: #### LIPID, BMP, ALT, TSH ####[facility] [address] [address]Dr. Yilan Mario Chloride [Moles/Vol] 105 mmol/L Normal 98-107 [facility] Comment on above: Performed By: #### LIPID, BMP, ALT, TSH ####[facility] [address] [place] [address]Dr. Yilan Mario CO2 [Moles/Vol] 27.3 mmol/L Normal 21.0-32.0 [facility] Comment on above: Performed By: #### LIPID, BMP, ALT, TSH ####[facility] [address] [place] [address]Dr. Dwight Mario Creatinine [Mass/Vol] 0.80 mg/dL Normal 0.55-1.02 [facility] Comment on above: Performed By: #### LIPID, BMP, ALT, TSH ####[facility] [address] [place] [address]Dr. Dwight Mario EGFR-AF UKRAINIAN >60 Normal >=60 [facility] Comment on above: Performed By: #### LIPID, BMP, ALT, TSH ####[facility] [address] [place] [address]Dr. Dwight Mario EGFR-NON AF UKRAINIAN >60 Normal >=60 [facility] Comment on above: Performed By: #### LIPID, BMP, ALT, TSH ####[facility] [address] [address]Dr. Dwight Mario Glucose [Mass/Vol] 107 mg/dL Critically high 74-106 [facility] Comment on above: Performed By: #### LIPID, BMP, ALT, TSH ####[facility] [address] [address]Dr. Dwight Mario Potassium [Moles/Vol] 4.0 mmol/L Normal 3.5-5.1 [facility] Comment on above: Performed By: #### LIPID, BMP, ALT, TSH ####[facility] [address] [place] [address]Dr. Dwight Mario Sodium [Moles/Vol] 138 mmol/L Normal 136-145 [facility] Comment on above: Performed By: #### LIPID, BMP, ALT, TSH ####[facility] [address] [place] [address]Dr. Dwight Mario Urea nitrogen [Mass/Vol] 20.0 mg/dL Critically high 7.0-18.0 [facility] Comment on above: Performed By: #### LIPID, BMP, ALT, TSH ####[facility] [address] [address]Dr. Dwight Mario Urea nitrogen/Creatin ine [Mass ratio] 25.0 mg/mg Normal [facility] Comment on above: Performed By: #### LIPID, BMP, ALT, TSH ####[facility] [address] [place], [place] [address]Tt. Dwight Mario SGPTon 01-29-2022 ALT [Catalytic activity/Vol] 26 U/L Normal 14-59 [facility] Comment on above: Performed By: #### LIPID, BMP, ALT, TSH ####[facility] [address] [place], [place] [address]En. Dwight Mario TSHon 01-29-2022 TSH 5.901 uIU/mL Critically high 0.358-3.740 [facility] Comment on above: Performed By: #### LIPID, BMP, ALT, TSH ####[facility] [address] [place], [place] [address]Hz. Dwight Mario XR shoulder LT min 2V*on XR shoulder LT min 2V* [facility] Main [place] [address] [place] [address] XRay Report Signed Patient: Munira Chester MR#: [id number] : 1950 Acct:[id number] Age/Sex: 71 / F ADM Date: 10/10/21 Loc: [facility] Room: Type: [facility] Attending Dr: Espinoza Botello MD [...] Abelino Prado M.D.10/10/2021 1:25 PM Dictation Location: [place] [address] Transcribed By: [facility] 10/10/21 1325 Dictated By: Abelino Prado II, MD 10/10/21 1324 Signed By: 10/10/21 1325 [facility] MRI SHOULDER LT WO CONon MRI [...] by: YOVANA COTTRELL Date: 2021-10-03 15:02 Normal [facility] Vital Signs Date Time Vital Sign Value Performing Clinician Facility 04-16-2023 09:00-0500 Body height 154.94 cm Andrea Ball Other [facility] Other 04-16-2023 09:00-0500 Body mass index (BMI) [Ratio] 30.12 kg/m2 Andrea Ball Other [facility] Other 04-16-2023 09:00-0500 Body weight 72.3 kg Andrea Ball Other [facility] Other 04-16-2023 09:00-0500 Diastolic blood pressure 86 mm[Hg] Andrea Ball Other [facility] Other 04-16-2023 09:00-0500 Respiratory rate 20 /min Andrea Ball Other [facility] Other 04-16-2023 09:00-0500 SaO2% (BldA) [Mass fraction] 95 % Andrea Ball Other [facility] Other 04-16-2023 09:00-0500 Systolic blood pressure 150 mm[Hg] Andrea Ball Other [facility] Other 02-18-2023 11:45-0500 Body height 154.94 cm Andrea Ball Other [facility] Other 02-18-2023 11:45-0500 Body mass index (BMI) [Ratio] 29.4 kg/m2 Andrea Ball Other [facility] Other 02-18-2023 11:45-0500 Body weight 70.58 kg Andrea Ball Other [facility] Other 02-18-2023 11:45-0500 Diastolic blood pressure 80 mm[Hg] Andrea Ball Other [facility] Other 02-18-2023 11:45-0500 Respiratory rate 12 /min Andrea Ball Other [facility] Other 02-18-2023 11:45-0500 SaO2% (BldA) [Mass fraction] 98 % Andrea Ball Other [facility] [employer] Other 02-18-2023 11:45-0500 Systolic blood pressure 148 mm[Hg] Andrea Ball Other [facility] [employer] Other 01-25-2023 08:30-0500 Body height 154.94 cm Andrea Ball Other [facility] [employer] [employer] Other 01-25-2023 08:30-0500 Body mass index (BMI) [Ratio] 29.59 kg/m2 Andrea Ball Other [employer] Other 01-25-2023 08:30-0500 Body weight 71.03 kg Andrea Ball Other [employer] Other 01-25-2023 08:30-0500 Diastolic blood pressure 77 mm[Hg] Andrea Ball Other [employer] Other 01-25-2023 08:30-0500 Respiratory rate 12 /min Andrea Ball Other [employer] Other 01-25-2023 08:30-0500 Systolic blood pressure 118 mm[Hg] Andrea Ball Other [employer] Other 12-12-2022 13:45-0400 Body height 154.94 cm Andrea Ball Other [employer] Other 12-12-2022 13:45-0400 Body mass index (BMI) [Ratio] 29.36 kg/m2 Andrea Ball Other [employer] Other 12-12-2022 13:45-0400 Body weight 70.49 kg Andrea Ball Other [employer] Other 12-12-2022 13:45-0400 Diastolic blood pressure 79 mm[Hg] Andrea Ball Other [employer] Other 12-12-2022 13:45-0400 Respiratory rate 12 /min Andrea Ball Other [employer] Other 12-12-2022 13:45-0400 SaO2% (BldA) [Mass fraction] 98 % Andrea Ball Other [employer] Other 12-12-2022 13:45-0400 Systolic blood pressure 130 mm[Hg] Andrea Ball Other [employer] Other 11-01-2022 15:05-0400 Body height 154.94 cm Shannan Webster Other [employer] Other 11-01-2022 15:05-0400 Body mass index (BMI) [Ratio] 28.34 kg/m2 Shannan Webster Other [employer] Other 11-01-2022 15:05-0400 Body temperature 96.2 [degF] Shannan Webster Other [employer] Other 11-01-2022 15:05-0400 Body weight 68.04 kg Shannan Webster Other [employer] Other 11-01-2022 15:05-0400 Diastolic blood pressure 69 mm[Hg] Shannan Webster Other [employer] Other 11-01-2022 15:05-0400 Respiratory rate 18 /min Shannan Webster Other [employer] Other 11-01-2022 15:05-0400 SaO2% (BldA) [Mass fraction] 99 % Shannan Webster Other [employer] Other 11-01-2022 15:05-0400 Systolic blood pressure 130 mm[Hg] Shannan Webster Other [employer] Other 03-05-2022 15:00-0500 Body height 162.56 cm Luma Chirinos Other [employer] Other 12-01-2021 09:55-0400 Blood Pressure Location Asuncion Lue [facility] 12-01-2021 09:55-0400 Diastolic blood pressure 89 mm[Hg] Asuncion Lue [facility] 12-01-2021 09:55-0400 Heart rate 81 /min Asuncion Lue [facility] 12-01-2021 09:55-0400 Systolic blood pressure 140 mm[Hg] Asuncion Lue [facility] 10-10-2021 10:15-0400 Body height 162.56 cm Espinoza Botello Other [employer] Other 10-10-2021 10:15-0400 Body mass index (BMI) [Ratio] 24.89 kg/m2 Espinoza Botello Other [employer] Other 10-10-2021 10:15-0400 Body weight 65.77 kg Espinoza Botello Other [employer] Other Encounters Encounter Date Encounter Type Care Provider Facility Start: 02-19-2024 ambulatory Asuncion MitchellJose Howardbharati Facility:[facility] Start: 05-14-2023 ambulatory Del Muhammad lity:[facility] Start: 04-22-2023 Desallyasmine HylioSoftdanial brasher MD Work Phone: [facility] Start: 04-22-2023 BamSurflyo HylioSoftdanial brasher MD Work Phone: [facility] Start: 04-22-2023 Telephone encounter Andrea Ball [facility] Start: 04-22-2023 End: 04-22-2023 ambulatory CHARITO VASQUEZ Not Available Start: 04-19-2023 End: 04-19-2023 ambulatory Andrea Ball Other [employer] Other Start: 04-19-2023 Telephone encounter Andrea Ball [facility] Start: 04-18-2023 Telephone encounter Andrea Ball [facility] Start: 04-18-2023 End: 04-18-2023 ambulatory Andrea Ball Other Facility:[facility] Start: 04-16-2023 End: 04-16-2023 ambulatory Andrea Ball Other [employer] Other Start: 04-16-2023 Office outpatient vi sit 25 minutes Andrea Ball [facility] Start: 04-04-2023 End: 04-04-2023 ambulatory Andrea Ball Other [employer] Other Start: 04-04-2023 Telephone encounter [facility] Start: 03-08-2023 End: 03-08-2023 ambulatory Andrea Wu Other [employer] Other Start: 03-08-2023 Telephone encounter Andrea WALLACE [facility] Start: 03-07-2023 End: 03-07-2023 ambulatory ANA VALIENTE Not Available Start: 03-06-2023 Telephone encounter Andrea WALLACE [facility] Start: 03-06-2023 End: 03-06-2023 ambulatory MADISON E JONATHONEDGARD [employer] Other Start: 02-25-2023 End: 02-25-2023 ambulatory Andrea Wu Other [employer] Other Start: 02-25-2023 Telephone encounter Andrea WALLACE [facility] Start: 02-20-2023 End: 02-21-2023 ambulatory Asuncion Buchanan Facility:[facility] Start: 02-20-2023 End: 02-20-2023 Patient encounter procedure Asuncion Buchanan [facility] Start: 02-18-2023 End: 02-18-2023 ambulatory Andrea Wu Other [employer] Other Start: 02-18-2023 Office outpatient vi sit 15 minutes [facility] Start: 02-05-2023 End: 02-05-2023 ambulatory Andrea Wu Other [employer] Other Start: 02-05-2023 Telephone encounter Andrea WALLACE [facility] Start: 01-31-2023 End: 01-31-2023 ambulatory Andrea Wu Other [employer] Other Start: 01-31-2023 Telephone encounter Andrea WALLACE [facility] Start: 01-29-2023 End: 01-29-2023 ambulatory Andrea Wu Other [employer] Other Start: 01-29-2023 Telephone encounter Andrea WALLACE [facility] Start: 01-25-2023 End: 01-25-2023 ambulatory Andrea Wu Other [employer] Other Start: 01-25-2023 Patient encounter procedure Andrea Wu [facility] Start: 01-25-2023 Telephone encounter Andrea WALLACE [facility] Start: 12-12-2022 End: 12-12-2022 ambulatory Andrea Wu Other [employer] Other Start: 12-12-2022 Office outpatient vi sit 15 minutes Andrea Wu [facility] Start: 11-07-2022 End: 11-07-2022 ambulatory Andrea Wu Other [employer] Other Start: 11-07-2022 Telephone encounter Andrea WALLACE [facility] Start: 11-01-2022 End: 11-01-2022 ambulatory Shannan Webster Other [employer] Other Start: 11-01-2022 Office outpatient vi sit 25 minutes Shannan Webster [facility] Start: 06-27-2022 End: 06-28-[address] JEROME ESPINOSA Facility:[facility] Start: 06-04-2022 End: 06-04-2022 ambulatory Andrea Wu Other [employer] Other Start: 06-04-2022 Telephone encounter Andrea Wu FP [facility] Start: 05-17-2022 End: 05-18-[address] CAMPOS SHAH Facility:[facility] Start: 04-26-2022 End: 04-27-[address] JEROME ESPINOSA Facility:[facility] Start: 04-25-2022 End: 04-25-2022 ambulatory Andrea [place] Other [employer] Other Start: 04-25-2022 Telephone encounter Andrea Wu MADISON Schwartz [facility] Start: 04-10-2022 End: 04-10-2022 ambulatory Andrea Wu Other [employer] Other Start: 04-10-2022 Telephone encounter Andrea Schwartz [facility] Start: 04-07-2022 Encounter for preprocedural cardiovascular examination [facility] Richard [facility] Start: 04-07-2022 Encounter for preprocedural laboratory examination [facility] Richard [facility] Start: 04-06-2022 End: 04-06-2022 ambulatory Andrea Wu Other [employer] Other Start: 04-06-2022 Telephone encounter Andrea Wu MADISON Schwartz [facility] Start: 04-05-2022 End: 04-05-[address] JEROME [...] 03-05-2022 End: 03-05-2022 ambulatory Luma Chirinos Other [employer] Other Start: 03-05-2022 Office outpatient vi sit 15 minutes Luma Chirinos [facility] Start: 01-29-2022 End: 01-30-[address] ANDREA WU Facility:[facility] Start: 01-18-2022 Adult health examination Shannan aDrin Other [employer] Other Start: 12-01-2021 End: 12-01-2021 Patient encounter procedure Asuncion MitchellJose Dewayne [facility] Start: 10-10-2021 End: 10-10-2021 ambulatory Espinoza Botello Other [employer] Other Start: 10-10-2021 Office outpatient vi sit 25 minutes Espinoza Botello [facility] Start: 10-10-2021 End: 10-10-2021 Patient encounter procedure MD Espinoza Botello Work Phone: [facility] Start: 10-05-2021 End: 10-05-2021 ambulatory Espinoza Botello Other [facility] Contacts[facility] Other Start: 10-05-2021 Telephone encounter Espinoza Botello [...] Colonoscopy Asuncion Buchanan Bilateral cataracts (disorder) Asuncion Buchanan section Asuncion Buchanan Depression screening Shannan araujo [...] Screening for malign ant neoplasm of colon [facility] Start: 04-08-2024 End: 04-08-2024 Patient encounter procedure 04/08/2024 9:45 AM EST Office Visit [facility] [address] [place] [address] Madison Burns DO [address] [place] [address] [facility] Start: 02-06-2024 Screening for malign ant neoplasm of breast Mammogram [facility] Start: 01-20-2024 End: 01-20-2024 Patient encounter procedure 01/20/2024 8:15 AM EST Office Visit [facility] [address] [place] [id number] Uriah Kilpatrick, DO [address] [place] [address] [facility] Start: 04-22-2023 End: 04-22-2023 Patient encounter procedure 04/22/2023 11:00 AM EST Office Visit [facility] [address] [place] [address] Charito Vasquez MD [address] [place] [address] Arrived [facility] Comment on above: Arrived Start: 1950 Screening for malign ant neoplasm of colon [facility] Immunizations Immunization Date Immunization Notes Care Provider Fa cili 12-31-2022 Flu Shot - Documentation Purposes Only Andrea Wu Other [employer] Other 12-31-2022 influenza virus vaccine, unspecified formulation Asuncion Lue [facility] 12-22-2021 SARS-CoV-2 (COVID-19 ) [id number] Asuncion Lue [facility] 12-18-2021 influenza virus vaccine, split virus (incl. purified surface antigen) Shannan Webster Other [employer] Other 12-18-2021 influenza virus vaccine, unspecified formulation Asuncion Lue [facility] 07-04-2021 SARS-CoV-2 (COVID-19 ) mRNA-1273 vaccine Asuncion Lue [facility] 01-23-2021 SARS-CoV-2 (COVID-19 ) mRNA-1273 vaccine Asuncion Lue [facility] 11-23-2020 influenza virus vaccine, split virus (incl. purified surface antigen) Shannan Webster Other [employer] Other 11-23-2020 influenza virus vaccine, unspecified formulation Asuncion Lue [facility] 06-02-2020 SARS-CoV-2 (COVID-19 ) mRNA-1273 vaccine Asuncion Lue [facility] 05-05-2020 SARS-CoV-2 (COVID-19 ) mRNA-1273 vaccine Asuncion Lue [facility] 03-18-2020 SARS-CoV-2 (COVID-19 ) mRNA-1273 vaccine Asuncion Lue [facility] Comment on above: Result Comment: 3 sh ots to date 12-07-2019 influenza virus vaccine, split virus (incl. purified surface antigen) Shannan Webster Other [employer] Other 12-07-2019 influenza virus vaccine, unspecified formulation Asuncion Lue [facility] 01-05-2019 influenza virus vaccine, unspecified formulation Asuncion Lue [facility] 01-05-2019 pneumococcal polysaccharide vaccine, 23 valent Asuncion Lue [facility] 12-17-2018 influenza virus vaccine, unspecified formulation Asuncion Lue [facility] 12-19-2017 influenza virus vaccine, unspecified formulation Asuncion Lue [facility] 01-10-2017 influenza virus vaccine, split virus (incl. purified surface antigen) Shannan Webster Other [employer] Other 01-10-2017 influenza virus vaccine, unspecified formulation Asuncion Lue [facility] 01-10-2017 pneumococcal conjuga te vaccine, 13 valent Asuncion Buchanan [facility] 01-04-2016 influenza virus vaccine, unspecified formulation Asuncion Buchanan [facility] 01-04-2016 pneumococcal polysaccharide vaccine, 23 valent Asuncion Buchanan [facility] Payers Date Payer Category Payer Unknown [employer] [id number] 2021-Present [address] [place] [address] [id number] 2017 Medicare MEDICARE MEDICAR E PART B [id number] 2017-Present [address] [address] [place] [address] Medicare [id number] 1959 Medicare [id number] [id number] 1959 Unknown [id number] [id number] 1952 Unknown [id number] 2.16.840.1.935995.3.579.2.59 1952 Unknown [id number] 2.16.840.1.405476.3.579.2.593 1952 Unknown [id number] 2.16.840.1.887228.3.579.2.593 1952 Unknown [id number] 2.16.840.1.897730.3.579.2.593 1952 Unknown [id number] 2.16.840.1.003792.3.579.2.593 1952 Unknown [id number] 2.16.840.1.021669.3.579.2.593 1952 Unknown [id number] 2.16.840.1.125028.3.579.2.593 1952 Unknown [id number] 2.16.840.1.709543.3.579.2.593 1952 Unknown [id number] 2.16.840.1.936013.3.579.2.593 1952 Unknown [id number] 2.16.840.1.736124.3.579.2.593 1952 Unknown [id number] 2.16.840.1.182685.3.579.2.727 1952 Unknown [id number] 2.16.840.1.663640.3.579.2.727 1952 Unknown [id number] 2.16.840.1.743126.3.579.2.727 1952 Unknown [id number] 2.16.840.1.976045.3.579.2.1259 1952 Unknown [id number] 2.16.840.1.139101.3.579.2.1259 1952 Unknown [id number] 2.16.840.1.141411.3.579.2.1259 Self-pay Self Pay [id number] Unknown [employer] BC/BS [id number] Social History Date Type Detail Facility Unknown if ever smoked [facility] Other Start: 03-07-2023 Sex Assigned At N [facility] Other Start: 11-11-2018 End: 03-07-2023 Tobacco smoking status MIIS Never smoked tobacco (finding) [facility] Start: 1950 Sex Assigned At Female F [facility] Tobacco smoking status Never [facility] Start: 03-07-2023 Tobacco use and exposure Smokeless tobacco non-user [facility] Start: 03-07-2023 Alcohol intake Lifetime non-d brian (finding) [facility] Start: 03-07-2023 History of Social function [facility] Start: 03-05-2023 Alcohol Comment Caffeine : soda [facility] Start: 08-28-2022 Gender identity Identifies as female gender (finding) [facility] Medical Equipment Procedure Code Equipment Code Equipment Origin al Text Equipment Identifier Dates Arthroscopy, shoulder ANCHOR SUTURE FT III [id number] FDA Start: 11-11-2018 Functional Status Date Assessment Result Facility 02-20-2023 Functional Status N/A [facility] 12-01-2021 Functional Status N/A [facility] Clinical Notes 10-10-2021 to 04-22-2023 Note Date & Type Note Facility 04-22-2023 Evaluation note Encounter Date Diagnosis Assessment Notes Apr, Moderate persistent asthma without complication (ICD-10 - J45.40) [employer] Other 02-02-2024 Evaluation note* Encounter Date Diagnosis Assessment Notes Treatment Notes Treatment Clinical Notes Apr, Moderate persistent asthma with acute exacerbation (ICD-10 - J45.41) [employer] Other 01-30-2024 Evaluation note* Encounter Date Diagnosis [...] Claritin, Singulair and Flonase Scheduled to see unit tender. Mar, Gastroesophageal reflux disease with esophagitis without hemorrhage (ICD-10 - K21.00) Avoid lying flat after eating. Avoid eating 2 hours prior to bedtime. Smaller, frequent meals may be better tolerated.Weight loss if overweight.PPI with any heartburn.Monitor for dysphagia. [employer] Other 01-18-2024 Evaluation note* Encounter Date Diagnosis Assessment Notes Treatment Notes Treatment Clinical Notes Mar, Iron deficiency anemia due to chronic blood loss (ICD-10 - D50.0) [employer] Other 12-22-2023 Evaluation note* Encounter Date Diagnosis Assessment Notes Treatment Notes Treatment Clinical Notes Feb, Iron deficiency anemia due to chronic blood loss (ICD-10 - D50.0) [employer] Other 12-20-2023 Evaluation note* Encounter Date Diagnosis Assessment Notes Treatment Notes Treatment Clinical Notes Feb, Anemia (ICD-10 - D64.9) [employer] Other 12-11-2023 Evaluation note* Encounter Date Diagnosis Assessment Notes Treatment Notes Treatment Clinical Notes Feb, Moderate persistent asthma without complication (ICD-10 - J45.40) [employer] Other 12-06-2023 Hospital Discharge instructions Patient Education [...] relieve pelvic muscle tension or spasms. Take qhje-wgh-fvuaphh and prescription medicines only as told by [...] provider. Document Revised: 07/12/2021 Document Reviewed: 07/12/2021 [employer] Patient Education 2022 [employer] 02/20/2023 09:44:59 Kegel Exercises Kegel Exercises Kegel [...] provider. Document Revised: 07/13/2021 Document Reviewed: 07/13/2021 ROVOP Patient Education 2022 [employer]. Follow Up Care 01/31/2022 08:50:25 With:Dewayne VILLEGAS, Asuncion [place], URL, URO Address: [address] [place] [phone] When: Unknown Comments:[facility] Evaluation note* Encounter Date Diagnosis Assessment Notes Treatment Notes Treatment Clinical Notes Feb, Moderate persistent asthma with acute exacerbation (ICD-10 - J45.41) Holding Breo for trial of Trelegy. Avoid dust, mold, fumes as much as possible. Steroid taper to break cycle of coughing Refer to [employer] Paral[employer] and Technical Maintenance Specialist when stable Feb, Non-seasonal allergi c rhinitis due to other allergic trigger (ICD-10 - J30.89) Continue FLonase NS Add Astepro NS Continue Claritin and Singulair Feb, Gastroesophageal reflux disease with esophagitis without hemorrhage (ICD-10 - K21.00) Diet instructions: Smaller portions, avoid eating and laying flat, avoid eating or drinking prior to bedtime. Weight loss. Continue PPI [employer] Other 11-21-2023 Evaluation note* Encounter Date Diagnosis Assessment Notes Treatment Notes Treatment Clinical Notes Jan, Age-related osteopor osis without current pathological fracture (ICD-10 - M81.0) Jan, Hypercholesteremia (ICD-10 - E78.00) [employer] Other 11-14-2023 Evaluation note* Encounter Date Diagnosis Assessment Notes Treatment Notes Treatment Clinical Notes Jan, Menopause (ICD-10 - Z78.0) [employer] Other 11-10-2023 Evaluation note* Encounter Date Diagnosis Assessment Notes Treatment Notes Treatment Clinical Notes Jan, Hypercholesteremia (ICD-10 - E78.00) [employer] Other [id number] Evaluation note* Encounter Date Diagnosis Assessment Notes [...] much improved. Offered PFT and referral to Technical Maintenance Specialist. Jan, Autoimmune thyroidit is (ICD-10 - E06.3) [...] LORENZO (generalized anxiety disorder) (ICD-10 - F41.1) [employer] Other 09-27-2023 Evaluation note* Encounter Date Diagnosis Assessment Notes Treatment Notes Treatment Clinical Notes Nov, Moderate persistent asthma with acute exacerbation (ICD-10 - J45.41) Reviewed medication - continue LABA/ICS and NIKO - continue Singulair, Claritin and Flonase Suggested short course of Steroids and antibiotics. Discussed use of LAMA in combination of what she is presently taking CXR if no improvement [employer] Other 08-23-2023 Evaluation note* Encounter Date Diagnosis Assessment Notes Treatment Notes Treatment Clinical Notes Oct, Mild persistent asthma, uncomplicated (ICD-10 - J45.30) [employer] Other 08-17-2023 Evaluation note* Encounter Date Diagnosis [...] understanding and is agreeable to treatment plan [employer] Other 04-12-2023 NotePROCEDURE: XR FOOT RT MIN [...] authenticated by: JEROME ESPINOSA Date: 2022-06-27 15:36[id number] NotePROCEDURE: XR FOOT RT MIN 3 VIEWS [...] authenticated by: CAMPOS SHAH Date: 2022-05-17 16:27[facility] [id number] NotePROCEDURE: XR FOOT RT MIN 3 VIEWS [...] authenticated by: JEROME ESPINOSA Date: 2022-04-26 09:37[facility] [id number] NotePROCEDURE: XR FOOT RT MIN 3 VIEWS [...] Electronically authenticated by: JEROME ESPINOSA Date: 2022-04-05 14:43[facility]01-19-2023 NotePROCEDURE: XR FOOT RT 2V HISTORY: [...] Electronically authenticated by: JEROME ESPINOSA Date: 2022-04-05 14:41[facility]01-11-2023 NotePROCEDURE: XR FOOT RT MIN 3 [...] Electronically authenticated by: JEROME ESPINOSA Date: 2022-03-28 10:17[facility]12-26-2022 NotePROCEDURE: XR FOOT RT MIN 3 [...] Electronically authenticated by: JEROME ESPINOSA Date: 2022-03-12 09:46[facility]12-19-2022 Evaluation note* Encounter Date Diagnosis Assessment Notes Treatment Notes Treatment Clinical Notes Feb, Acute pain of left shoulder (ICD-10 - M25.512) Feb, Tear of left supraspinatus tendon (ICD-10 - M75.102) A 1/1cc marcaine / kenalog cortisone injection was performed into the subacromial space under sterile technique. Patient tolerated the injection well with no adverse reaction. [employer] Other 09-16-2022 Hospital Discharge instructions Patient Education [...] (electrical nerve stimulation). For women, using a director medical to prevent urine leaks. This is a [...] right after experiencing incontinence. General instructions Take sswd-out-bfzcicu and prescription medicines only as told by [...] 04/11/2005 Document Revised: 03/14/2018 Document Reviewed: 06/13/2017 ROVOP Patient Education 2020 [employer]. Follow Up Care 10/20/2021 08:23:44 With:Dewayne VILLEGAS, RANDAL Arizmendi, URO Address: When: Unknown [facility] 2022 Evaluation note* Encounter Date Diagnosis [...] the injection well with no adverse reaction. [employer] Other Evaluation + Plan note Future Appointments Appointment Date:01/31/2022 08:00:00 AM Scheduled Provider:Asuncion Buchanan MD Location:[facility] Appointment Type:URO Office Visit [facility] Evaluation + Plan note Future Appointments Appointment Date:02/19/2024 08:00:00 AM Scheduled Provider:Asuncion Buchanan MD Location:[facility] Appointment Type:URO Office Visit [facility] evaluation noteNo InformationNort [employer] Other Evaluation noteNo assessment information available [facility] Work Phone: history general Narrative - Reported* [...] above Hospitalization History blood transfusion from [facility] [employer] Other history general Narrative - Reported* Type [...] above Hospitalization History blood transfusion from [facility] [employer] Other history general Narrative - Reported* Type [...] above Hospitalization History blood transfusion from [facility] [employer] Other History general Narrative - Reported* Type [...] above Hospitalization History blood transfusion from [facility] [employer] Other Hisgrth general Narrative - Reported* Type Description Date [...] see above Hospitalization History blood transfusion from [facility] Other Hospital course Narrative No data available for this section [facility] [employer] Progress note No data available for this section [facility] [employer] Reason for referral (narrative)* Reason *FU 04/23 Referral for iron deficiency anemia. Diagnosis 1 Iron deficiency anem ia secondary to inadequate dietary iron intake (D50.8) Referral Organization formerly [facility] kenny Referring Provider First Name Andrea Referring Provider Last Name [place] Referring Provider Specialty Internal Me dicine Referred Organization [facility] Referred Provider AZAM VILLA Referred Address [address], [place],[address] Referred Provider Specialty Hematology Referral Priority Routine [...] faxed Clinical Notes Include labs results p: [id number] f: [id number] Reason Referral for pe rsistent cough and wheezing Diagnosis 1 Moderate persistent asthma with acute exacerbation (J45.41) Referral Organization formerly [facility] kenny Referring Provider First Name Andrea Referring Provider Last Name [place] Referring Provider Specialty Internal Me dicine Referred Organization [facility] Referred Provider Edouard Espinosa Referred Address [address], [place],[address] Referred Provider Specialty Pulmonary Di seases Referral Priority Routine General Notes Patient w/ allergic rhinitis and asthma w/ deterioration of her symptoms over the past year. Her medications have been maximized and alternative etiology for cough and wheezing addressed. She has been referred to an [employer]al[employer] for evaluation and scheduled for a PFT. [...] inadequate dietary iron intake (D50.8) Referral Organization [facility] [place] cox Referring Provider First Name Andrea Referring Provider Last Name [place] Referring Provider Specialty Internal Me dicine Referred Organization [facility] Referred Address [address],[place], [place],[address] Referred Provider Specialty Gastroentero logy Referral Priority [...] notes locked, referral faxed Clinical Notes f: [id number] [employer] Other Reason for referral (narrative)* Reason *FU 04/23 Referral for iron deficiency anemia. Diagnosis 1 Iron deficiency anem ia secondary to inadequate dietary iron intake (D50.8) Referral Organization [facility] [place] [facility] kenny Referring Provider First Name Andrea Referring Provider Last Name [place] Referring Provider Specialty Internal Me dicine Referred Organization [facility] Referred Provider AZAM VILLA Referred Address [address], [place],[address] Referred Provider Specialty Hematology Referral Priority Routine [...] faxed Clinical Notes Include labs results p: [id number] f: [id number] Reason Referral for pe rsistent cough and wheezing Diagnosis 1 Moderate persistent asthma with acute exacerbation (J45.41) Referral Organization formerly [facility] kenny Referring Provider First Name Andrea Referring Provider Last Name [place] Referring Provider Specialty Internal Me dicine Referred Organization [facility] Referred Provider Edouard Espinosa Referred Address [address], [place],[address] Referred Provider Specialty Pulmonary Di pura Referral Priority Routine General Notes Patient w/ allergic rhinitis and asthma w/ deterioration of her symptoms over the past year. Her medications have been maximized and alternative etiology for cough and wheezing addressed. She has been referred to an [employer] for evaluation and scheduled for a PFT. [...] inadequate dietary iron intake (D50.8) Referral Organization formerly [facility] kenny Referring Provider First Name Andrea Referring Provider Last Name [place] Referring Provider Specialty Internal Me dicine Referred Organization [facility] Referred Address [address],[place], [place],[address] Referred Provider Specialty Gastroentero logy Referral Priority [...] to Hematology for IV iron and evaluation. [employer] Other Summary Purpose Family History Relationship Condition [...] section and content) DATE CREATED AUTHOR 10/11/2021 [facility] DATE CREATED AUTHOR AUTHOR'S ORGANIZ ATION 07/02/2022 [facility] DATE CREATED AUTHOR AUTHOR'S ORGANIZ ATION 04/19/2023 [facility] DATE CREATED AUTHOR AUTHOR'S ORGANIZ ATION 04/23/2023 [facility] EP[employer] Care Teams (unrecognized sec tion and content) Team Status: Inactive Member Role Status Dates Espinoza Botello MD Attending Provider Active Clinical Laboratory Assistant Relationship Specialty Start Date End Date Andrea Wu MD [address] [place] [address] PCP - General Internal Medicine 08/27/22 Goals [...] BE BASED ON THE PRIMARY CLINICAL RECORDS. [facility]. provides no warranty or guarantee of the accuracy or completeness of information in this document.
--- NOTE | 2023-05-07 07:49 | CT_ITS ---
The [address] [address] Patient Name: SIA ALEXANDER MRN: [id number] date: 1950 Sex: F Assigned Patient Location: CT Current Patient Location: CT Accession/Order Number: [id number] Exam Date: 05/07/2023 08:02 Report Date: 05/07/2023 08:56 At the request of: CHARITO FOSTER Procedure: CT soft tissue neck wo con CT soft tissue neck wo con, 05/07/2023 8:02 AM EST INDICATION: Stridor R06.1 COMPARISON: There is no appropriate prior study for comparison. TECHNIQUE: CT imaging of the neck were acquired without contrast. Supplemental 2D reformatted images were generated and reviewed as needed. Dose reduction techniques were achieved by using automated exposure control and/or adjustment of mA and/or kV according to patient size and/or use of iterative reconstruction technique. FINDINGS: There is opacification of the visualized paranasal sinuses with increased density in the left sphenoid and right maxillary sinuses and left posterior ethmoidal cells suggesting of chronic secretions versus fungal infection. There is status post bilateral lens replacement. No abnormality of the base of skull is noted. Incidental note of torus maxillaris. The nasopharynx, oropharynx, hypopharynx and oral cavity are unremarkable. The parotids, submandibular glands are unremarkable. The larynx is unremarkable. No abnormality of paraglottic fat is noted. There is no lymph node enlargement by size criteria. No retropharyngeal lymph node is noted. No abnormality of the aerodigestive tract or trachea is noted. The thyroid gland is homogeneous. The visualized portions of lungs are unremarkable. There is no suspicious osteolytic or osteoblastic lesion. There are multilevel degenerative changes of cervical spine. CT/CT soft tissue neck wo con IMPRESSION: No abnormality of the aerodigestive tract or trachea is noted. No lymphadenopathy. Partially opacified paranasal sinuses with increased density suggesting of chronic sinus disease versus fungal infection. Clinical correlation is advised. Electronically authenticated by: MARIELA DUDLEY Date: 05/07/2023 08:56
== END 2023-05-07 07:46 | disposition home or self-care (01) ==
LOC: CT 07:45
PROVIDERS: PCP Internal Medicine
DX: R06.1 Stridor (principal)
CPT/HCPCS: 70490

== ENCOUNTER 2023-05-08 07:44 | Outpatient (RCR) | payer MEDICARE, OTHER, SELFPAY ==
[2023-05-01 08:54] VITALS: BP 132/78; PULSE 92; RESP 16; TEMP 36.1; O2SAT 99
[2023-05-01] MEDS: FERUMOXYTOL 510 MG in 0.9 % SODIUM CHLORIDE 100 ML 234 MG IV (09:00)
--- NOTE | 2023-05-01 09:01 | PC.NURSE ---
0845: Pt. to [facility] amb. for iron treatment. Seated in recliner. VSS. Denies c/o. #22 gauge IV initiated to right hand on first attempt. Flushes easily with no redness or edema. Pt. tolerated without c/o. 0900: IV Feraheme initiated at this time. Pt. denies needs or c/o.
--- NOTE | 2023-05-01 09:32 | PC.NURSE ---
0930: Feraheme infusion completed at this time. Pt without s&s of adverse reaction. IV d/c'd, pressure to site. Requested pt. remain for 20min. obs, relays she needs to leave for judaism.Pt. d/c'd amb. to home.
[2023-05-08 08:59] VITALS: BP 116/74; PULSE 90; RESP 16; TEMP 36.6; O2SAT 95
[2023-05-08] MEDS: FERUMOXYTOL 510 MG in 0.9 % SODIUM CHLORIDE 100 ML 234 MG IV (09:01)
== END 2023-05-16 23:59 | disposition home or self-care (01) ==
LOC: INF 07:44
PROVIDERS: PCP Internal Medicine; Visit Provider Internal Medicine Hematology & Oncology
DX: D64.9 Anemia, unspecified (principal); D50.9 Iron deficiency anemia, unspecified; K90.9 Intestinal malabsorption, unspecified
CPT/HCPCS: 96365; G0463; Q0138

== ENCOUNTER 2023-05-20 13:16 | Outpatient (OUT) | payer MEDICARE, OTHER, SELFPAY ==
--- NOTE | 2023-05-20 13:19 | CT_ITS ---
The [address] [address] Patient Name: SIA ALEXANDER MRN: [id number] date: 1950 Sex: F Assigned Patient Location: CT Current Patient Location: CT Accession/Order Number: [id number] Exam Date: 05/20/2023 14:23 Report Date: 05/20/2023 15:18 At the request of: NON-STAFF PHYSICIAN Procedure: CT abdomen pelvis wo con EXAM: CT abdomen pelvis wo con HISTORY: left lower quadrant pain R10.32 COMPARISON: None. TECHNIQUE: Axial soft tissue windows of the abdomen and pelvis with coronal and sagittal reformats. CT dose reduction technique was used including Automated Exposure Control. Findings: Minimal right lower lobe dependent atelectasis. ABDOMEN: The liver, spleen, and adrenal glands are unremarkable. The gallbladder is surgically absent. The pancreas is atrophic with regions of fatty replacement. Minimal nonspecific bilateral perinephric fat stranding. No renal stones or collecting system dilatation. The bilateral ureters are nondilated. There are colonic diverticula. Otherwise, the bowel is unremarkable without evidence of wall thickening or obstruction. The aorta is normal caliber. No enlarged abdominal lymph nodes or free abdominal fluid. Tiny fat-containing umbilicus hernia. Pelvis: Unremarkable bladder. The uterus is atrophic. No enlarged pelvic lymph nodes or free pelvic fluid. No aggressive sclerotic or lytic osseous lesions. Mild multilevel degenerative spondylosis with mild dextroconvex scoliosis. Impression 1. No acute abdominal or pelvic abnormality 2. Diverticulosis. 3. Other more incidental findings, as described above. Electronically authenticated by: TUNG MESSER Date: 05/20/2023 15:18
--- OUTSIDE RECORDS SUMMARY | 2023-05-20 13:31 | XMS_ITS | CCD ---
Author Name Unknown Address [id number] [place] [address] Organization [facility] Care Team Providers Care Prison Officer Name Role Phone Espinoza Botello Unavailable ANDREA WU Primary Care Physician [phone] Andrea Wu Unavailable Luma Chirinos Unavailable PABLO, DR CAMPOS Nixon Consulting Unavailable CHICO, DR WILKES Primary Care Unavailable KIKI CROWELL Attending Unavailable KIKI CROWELL Admitting Unavailable KIKI CROWELL Consulting Unavailable JESÚS, DR JEROME Wnikler Consulting Unavailable AZUCENA ., DR MONZON Attending [...] Buchanan Attending Unavailable Del Nettles Attending Unavailable Andrea Wu MD Primary Care Provider CHARITO VASQUEZ Attending Unavailable CHARITO VASQUEZ Attending Unavailable MADISON BURNS Attending Unavailable ANA VALIENTE Attending Unavailable Allergies Allergy Classification Reported Allergen(s) Allergy Type Date of Onset Reaction(s) Facility (20 sources) Amoxicillin Drug Allergy 10-22-19 19 Rash, Unknown [facility] (20 sources) Sulfacetamide / Sulfur Drug Allergy Unknown [facility] Other (20 sources) idp dye Propensity to adverse reactions Unknown [facility] Other (1 source) Sulfonamides (Antibiotic) Allergy to substance 10-22-19 19 Unknown Reaction [facility] (1 source) wasp venom Allergy to substance 10-22-19 19 Anaphylaxis [facility] (1 source) bee venom protein (honey bee) Allergy to substance 10-22-19 19 Anaphylaxis [facility] (2 sources) Iodinated Contrast Media Allergy to substance 12-08-19 08 Other, Shortness of breath, Unknown [facility] (4 sources) Bee/Wasp/Ant venom; Translations: [Bee Stings] Drug allergy Dyspnea (finding), Weal (disorder) [facility] (4 sources) Contrast media; Translations: [contrast media (iodine-based)] Drug allergy Dyspnea (finding), Weal (disorder) [facility] [place] (20 sources) Iodine; Translations: [iodine] Drug Allergy 01-15-20 23 Unknown (qualifier value), Unknown [facility] [place] (4 sources) Penicillin; Translations: [penicillin] Drug Allergy Eruption of skin (disorder) [facility] [place] (4 sources) Sulfonamides (Antibiotic); Translations: [sulfa drugs] Drug allergy Angioedema (disorder) [facility] [place] (1 source) bee venom Drug allergy (disorder) [facility] (1 source) Iodine (And Iodine Containting Drugs) Drug allergy (disorder) 01-19-20 15 [facility] (1 source) Penicillins Drug allergy (disorder) [facility] (1 source) Sulfonamides (Antibiotic) Drug allergy (disorder) 03-18-18 56 [facility] (2 sources) Iodine / Sodium Iodide Drug Allergy Unknown [facility] Other (18 sources) Substance with penicillin structure and antibacterial mechanism of action (substance) Drug allergy Unknown [facility] Other (19 sources) Substance with sulfonamide structure and antibacterial mechanism of action (substance) Drug allergy 12-08-19 08 Unknown [facility] Other (2 sources) Allergies Reconciled Propensity to adverse reactions Unknown [facility] Other (2 sources) patient allergy list reviewed by nurse or physicia Propensity to adverse reactions 09-25-19 Comment:Done [facility] Other (1 source) Penicillin G Drug Allergy [...] PO As Directed October 21, 2018 12:00am [id number] 200 actuat albuterol 0.09 mg/actuat metered dose [...] days Active amLODIPine 5 mg oral tablet (18 sources) Dihydropyridine Calcium Channel Bebe Start: 02-20-2023 amLODIPine 5 mg Tab Refills(s) 0 Start Date: 02/20/23 Status: Ordered aspirin 770 mg / caffeine 60 mg / orphenadrine citrate 50 mg oral tablet (1 source) Platelet Aggregation Inhibitor, Nonsteroidal Anti-inflammatory Drug, Muscle Relaxant, Central Nervous System Stimulant, Methylxanthine Start: 10-21-2018 take 0.5 tablet by mouth four times daily Uaxkbxflpyuq-Hol-U affeine Active 0.5 TAB PO Four times [...] the morning RA Vitamin D-3 50 MCG (2000 UT) capsule Take 50 mcg by mouth [...] 0 Active estradiol 0.1 mg/ml vaginal cream (6 sources) Estrogen Start: 02-20-2023 estradiol (Est race) 0.1 MG/GM vaginal cream See Instructions, 42.5 gm, Refill(s) 0, apply pea sized amount to urethra 2x/wk, [facility], 158, cm, 02/20/23 8:48:00 EST, Height/Length Dosing, 68.5, kg, 02/20/23 8:48:00 EST, Weight Dosing 0 02/20/2023 Active Start: 02-20-2023 estradiol 0.1 mg/g Vag Crm See Instructions, 42.5 gm, Refill(s) 0, apply pea sized amount to urethra 2x/wk, [facility], 158, cm, 02/20/23 8:48:00 EST, Height/Length Dosing, 68.5, kg, 02/20/23 8:48:00 EST, Weight Dosing Start Date: 02/20/23 Status: Ordered Start: 04-13-2021 estradiol 0.1 mg/g vaginal cream See Instructions, Apply pea sized amount to external urethral 3 times a week for 2 weeks (at bedtime), then twice a week after for maintenance, # 42.5 gm, Refills(s) 1, Pharmacy: [address], 158, cm, 04/13/21 9:47:00 EST, Height/Length Do... Start Date: 04/13/21 Status: Ordered Start: 10-21-2018 End: 10-21-2018 Estradiol (Yuvafem) 10 mcg T ablet Active 10 MCG TABLET Twice a Week October 21, 2018 12:00am famotidine 20 mg oral tablet (18 sources) Histamine-2 Receptor Antagonist Start: 02-20-2023 take [...] Start: 09-02-2019 fluticasone 0. 05 mg/inh Nasal George 2 spray(s), Nasal, Daily, Refill(s) 0 Start [...] Inhalation daily Active fluticasone 0.05 mg/inh Nasal George (2 sources) Start: 09-02-2019 fluticasone 0.05 mg/inh Nasal George 2 spray(s), Nasal, Daily, Refill(s) 0 Start [...] 30 tab(s), Refills(s) 6, [facility]: [id number], 158, cm, 12/01/21 9:55:00 EDT, Height/Length Dosing, [...] # 90 tab(s), Refills(s) 1, [facility]: [facility] [facility], 154.9, cm, 12/11/19 9:26:00 EDT, [...] Active ProAir HFA 90 mcg/inh inhalation aerosol (2 sources) Start: 09-02-2019 take 2 puff(s) by inhalation every four hours ProAir HFA 90 mcg/inh inhalation aerosol 2 puff(s), Inhalation, q4hr Shortness of breath or wheezing, Refill(s) 0 Start Date: 09/02/19 Status: Ordered psyllium 520 mg oral capsule (1 source) Start: 10-21-2018 Psyllium Husk (Metamucil) 0.52 gram Capsule Active 1 CAP PO Twice daily October 21, 2018 12:00am Trelegy Ellipta (1 source) Start: 05-14-2023 Trelegy Ellipt a Inhalation, Daily, Refills(s) 0 Start Date: 05/14/23 Status: Ordered Trelegy Ellipta 200 mcg-62.5 mcg-25 mcg/inh inhalation powder (2 sources) Start: 02-20-2023 take 1 puff(s) by inhalation [...] a day for 30 days Feb, Active Vitamin D3 (1 source) Start: 05-14-2023 Vitamin D3 Ref ills(s) 0 Start Date: 05/14/23 Status: Ordered Completed/Discontinued Medications Medication Drug Class(es) Dates Sig [...] 0 Active take 1 tablet by grzegorz th [...] / nitrofurantoin, monohydrate 75 mg oral capsule (3 sources) Nitrofuran Antibacterial Start: 02-20-2023 Macrobid 100 mg Cap 100 mg = 1 cap(s), Oral, As Directed, take 1 tablet within 1 hour before or after intercourse to prevent infection., # 30 cap(s), Refills(s) 3, Pharmacy: [facility], 158, cm, 02/20/23 8:48:00 EST, Height/Length Dosing, 68.5, kg, 02/20/23 8:48:00 EST, Weight Dosing Start Date: 02/20/23 Status: Ordered Start: 12-01-2021 Macrobid 100 m g Cap 100 mg = 1 cap(s), Oral, As Directed, take 1 tablet within 1 hour after intercourse to prevent infection., # 30 cap(s), Refills(s) 1, [facility]: [facility] #[id number], 158, cm, 12/01/21 9:55:00 EDT, Height/Length Dosing, [...] Problem Date Documented Date Episodic/Chronic Abdominal pain (7 sources) Epigastric pain; Translations: [Epigastric pain] 12-11-2019 Episodic Acute and chronic tonsillitis (2 sources) Chronic disease of tonsils AND/OR adenoids; Translations: [Other chronic diseases of tonsils and adenoids] Chronic Acute bronchitis (4 sources) Acute bronchitis; Translations: [Acute bronchitis, unspecified] Onset: 05-12-19 Episodic Allergic reactions (3 sources) Urticaria; Translations: [Unspecified urticaria] Episodic Anxiety disorders (16 sources) Generalized anxiety disorder; Translations: [Generalized anxiety disorder] Chronic Asthma (20 sources) Asthma; Translations: [Mild persistent asthma] Onset: 05-06-19 15 04-12-2021 Chronic Asthma (1 source) Asthma; Translations: [Asthma, unspecified, unspecified status] Onset: 09-28-19 16 Cataract (5 sources) Bilateral cataracts; Translations: [Artificial lens present] [...] (2 sources) Other iron deficiency anemias Episodic Deficiency and other anemia (1 source) Iron deficiency anemia; Translations: [Iron deficiency anemia, unspecified] Onset: 05-14-19 24 Episodic Disorders of lipid metabolism (20 sources) Hyperlipidemia; Translations: [Pure hypercholesterolemia, unspecified] Onset: 09-25-19 18 08-31-2019 Chronic Disorders of teeth and jaw (2 sources) Periapical abscess without sinus tract; Translations: [Periapical abscess without sinus] Episodic Diverticulosis and diverticulitis (1 source) Diverticula of intestine; Translations: [Diverticulosis of large intestine without perforation or abscess without bleeding] Onset: 05-14-19 24 Chronic Esophageal disorders (20 sources) Gastroesophageal reflux disease; Translations: [Esophageal reflux [...] initial encounter for closed fracture] Onset: 03-13-20 22 Episodic Gastritis and duodenitis (1 source) Gastritis; Translations: [Other gastritis without bleeding] Onset: 05-14-19 24 Episodic Gastroduodenal ulcer (except hemorrhage) (11 sources) H/O: gastric ulcer; Translations: [H/O: peptic ulcer] Onset: 12-11-19 14 08-31-2019 Episodic Genitourinary symptoms and ill-defined conditions (5 sources) Mixed incontinence; Translations: [Incontinence] Onset: 12-02-19 Chronic Genitourinary symptoms and ill-defined conditions (9 sources) Sensation as if bladder still full; Translations: [Feeling of incomplete bladder emptying] Onset: 12-02-19 Episodic Headache; including migraine (20 sources) Tension-type [...] Translations: [Patellofemoral disorders, right knee] Onset: 02-22-20 18 Chronic Miscellaneous mental health disorders (2 sources) [...] Onset: 04-09-19 Chronic Other aftercare (1 source) terminal make up operator (current) use of aspirin; Translations: [RESIDENTIAL CURRENT USE OF ASPIRIN] Onset: 04-09-19 Episodic Other aftercare (3 sources) Other intermediate accountant (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 therapy; Translations: [OTH BRICK BURNER CURRENT DRUG THERAPY] Onset: 03-13-20 Episodic Other aftercare (1 source) Long-term current use of drug therapy; Translations: [Other intermediate accountant (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 therapy] Episodic Other and unspecified benign neoplasm (3 sources) History of polyp of colon 09-04-2019 Episod ic Other bone disease and musculoskeletal deformities (3 sources) Osteopenia 08-31-2019 Episodic Other bone disease [...] Episodic Other diseases of bladder and urethra (5 sources) Urethral caruncle; Translations: [Urethral caruncle] Onset: 12-02-19 Episodic Other diseases of kidney and ureters (1 source) Vesicoureteric reflux; Translations: [Vesicoureteral-reflux, unspecified] Onset: 05-14-19 Episodic Other disorders of stomach and duodenum (3 sources) 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 Other gastrointestinal disorders (2 sources) Irritable bowel syndrome characterized by constipation; Translations: [Irritable bowel syndrome with constipation] Chronic Other gastrointestinal disorders (3 sources) Abdominal bloating 12-11-2019 Episodic Other gastrointestinal disorders (1 source) Oropharyngeal dysphagia; Translations: [Dysphagia, oropharyngeal phase] Episodic Other gastrointestinal disorders (1 source) Dysphagia, oropharyngeal phase; Translations: [Dysphagia, oropharyngeal phase] Episodic Other gastrointestinal disorders (1 source) H/O: gastrointestinal disease; Translations: [Personal history of other diseases of the digestive system] Onset: 05-14-19 24 Episodic Other inflammatory condition of skin (1 [...] [PERSONAL HX OF PNEUMONIA RECURRENT] Onset: 04-09-19 23 Episodic Other nervous system disorders (20 sources) Chronic pain; Translations: [Other chronic pain] Chronic Other non-traumatic joint disorders (2 sources) Pain in left shoulder Onset: 10-11-19 Resolved : 10-11-19 22 Episodic Other nutritional; endocrine; and metabolic disorders [...] 01-18-20 16 Episodic Other upper respiratory disease (20 sources) Allergic rhinitis due to pollen; Translations: [...] ABSENCE OTH PART DIGESTV TRACT] Onset: 04-09-19 Episodic Residual codes; unclassified (1 source) Asymptomatic [...] wall of thorax, initial encounter] Onset: 02-24-20 Episodic Superficial injury; contusion (2 sources) Contusion of left knee; Translations: [Contusion of left knee, initial encounter] Episodic Systemic lupus erythematosus and connective tissue disorders (1 source) Autoimmune disease; Translations: [Autoimmune disease, not elsewhere classified] Onset: 09-25-19 18 Chronic Thyroid disorders (20 sources) Autoimmune hypothyroidism; 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] Onset: 01-30-2008-31-2019 Chronic Unclassified (3 sources) Asymptomatic microscopic hematuria 12-01-2021 Unclassified (3 sources) Finding of sensation of bladder 04-13-2021 [...] of shoulder and allied disorders] Onset: 04-11-19 19 Unclassified (1 source) Long-term (current) use of [...] foot] Onset: 11-19-19 16 Urinary tract infections (7 sources) Urinary tract infectious disease; Translations: [Urinary tract infection, site not specified] Onset: 12-02-19 22 Episodic Past or Other Problems Problem Classification [...] Range Facility Physician Referralon 024 Physician Referral [id number] Normal [facility] Ambulatory Visit Summaryon 1 04-23-2022 Ambulatory Visit Summary CATHERINE MUNIRA :1950 Visit Date:02/20/2023 Ambulatory Visit Instructions Your Diagnosis Mixed incontinence Recurrent UTI Urethral caruncle Tests Performed Urnls Dip Stick Auto w/o Microscopy POC [id number] Your Care Team Attending Physician - Dewayne [...] Tab) fluticasone nasal (fluticasone 0.05 mg/inh Nasal George) fluticasone/umeclidinium/aiden nterol (Trelegy Ellipta 200 mcg-62.5 mcg-25 [...] VILLEGAS, Asuncion [place] Where: [facility] Patient Educationon 02-21-20 23 Patient Education Obstetrics [...] pelvic muscle tension or spasms. ? Take ceir-ncw-lgzfotq and prescription medicines only as told by [...] movement i (more content not included)... Normal [facility] Urology Office/Clinic Noteon 02-20-2023 Urology Office/Clinic [...] Information Dewayne VILLEGAS, Asuncion [place], URL, [facility] [address], [place] [address] [phone] Additional Instructions: 1 yr Patient Education Pelvic [...] stricture Epigast (more content not included)... Normal [facility] Comment on above: Result Comment: Electronically Signed By : Asuncion Buchanan MD\.br\Date and Time Signed: 02/20/23 18:21 EST\.br\Electronically Co-Signed By: Kimime Lemus\.br\Date and Time Co-Signed: 02/20/23 09:53 EST POINT OF CARE GLUCOSEon - Glucose [Mass/Vol] 94 mg/dL Normal 74-106 [facility] Comment on above: Performed By: #### POCGLUC ####[facility] [address] [place], [place] [address]SxDr. Dwight Mario Glucose [Mass/Vol] 106 mg/dL Normal 74-106 [facility] Comment on above: Performed By: #### POCGLUC ####[facility] [address] [place], [place] [address]HaDr. Dwight Mario Covid-19 PCR (CVDTB)on 03-18 SARS-CoV-2 (COVID-19) RNA GIOVANI+probe Ql (Unsp spec) Not detected Normal NOT DETECTED [facility] Comment on above: Result Comment: This test is not yet morgan roved or cleared by the [place] FDA. When there are no FDA-approved or cleared tests available, and other criteria are met, FDA can make tests available under an emergency access mechanism called an Emergency Use Authorization (EUA). The EUA for this test is supported by the [place] of Health and Human Service's (HHS's) declaration [...] consistent with SARS-CoV-2. Performed By: #### C VDTBH #### [facility] [address] [place] [address] Dr. Dwight Mario PROF CHEM 8 (BAS METB)on Anion gap [Moles/Vol] 13.4 mmol/L Normal [facility] Comment on above: Performed By: #### BMP #### [facility] [address] [place] [address] Dr. Dwight Mario Calcium [Mass/Vol] 9.1 mg/dL Normal 8.5-10.1 [facility] Comment on above: Performed By: #### BMP #### [facility] [address] [place] [address] Dr. Dwight Mario Chloride [Moles/Vol] 107 mmol/L Normal 98-107 [facility] Comment on above: Performed By: #### BMP #### [facility] [address] [address] [address] Dwight Mario CO2 [Moles/Vol] 26.5 mmol/L Normal 21.0-32.0 [facility] Comment on above: Performed By: #### BMP #### [facility] [address] [address] [address] Dwight Mario Creatinine [Mass/Vol] 0.76 mg/dL Normal 0.55-1.02 [facility] Comment on above: Performed By: #### BMP #### [facility] [address] [place] [address] Dr. Dwight Mario EGFR-AF BERMUDIAN >60 Normal >=60 [facility] Comment on above: Performed By: #### BMP #### [facility] [address] [place] [address] Dr. Dwight Mario EGFR-NON AF BERMUDIAN >60 Normal >=60 [facility] Comment on above: Performed By: #### BMP #### [facility] [address] [address] [address] Dwight Mario Glucose [Mass/Vol] 108 mg/dL Critically high 74-106 [facility] Comment on above: Performed By: #### BMP #### [facility] [address] [place] [address] Dr. Dwight Mario Potassium [Moles/Vol] 3.9 mmol/L Normal 3.5-5.1 [facility] Comment on above: Performed By: #### BMP #### [facility] [address] [address] [address] Dwight Mario Sodium [Moles/Vol] 143 mmol/L Normal 136-145 [facility] Comment on above: Performed By: #### BMP #### [facility] [address] [address] [address] Dwight Mario Urea nitrogen [Mass/Vol] 25.0 mg/dL Critically high 7.0-18.0 [facility] Comment on above: Performed By: #### BMP #### [facility] [address] [address] [address] Dwight Mario Urea nitrogen/Creatin ine [Mass ratio] 32.9 mg/mg Normal [facility] Comment on above: Performed By: #### BMP #### [facility] [address] [place] [address] Dr. Dwight Mario CBC AUTO DIFFon 01-29-2022 BASO # 0.0 103/ul Normal 0.0-0.1 [facility] Comment on above: Performed By: #### CBC #### [facility] [address] [place] [address] Dr. Dwight Mario Basophils/100 WBC (Bld) 0.4 % Normal 0.2-2.0 [facility] Comment on above: Performed By: #### CBC #### [facility] [address] [place] [address] Dr. Dwight Mario EO # 0.3 103/ul Normal 0.0-0.7 [facility] Comment on above: Performed By: #### CBC #### [facility] [address] [place] [address] Dr. Dwight Mario Eosinophils/100 WBC (Bld) 2.8 % Normal 0.9-7.0 [facility] Comment on above: Performed By: #### CBC #### [facility] [address] [place] [address] Dr. Dwight Mario Erythrocyte distribution width (RBC) [Ratio] 14.0 % Normal 11.0-15.0 [facility] Comment on above: Performed By: #### CBC #### [facility] [address] [place] [address] Dr. Dwight Mario Hematocrit (Bld) [Volume fraction] 38.3 % Normal 36.0-48.0 [facility] Comment on above: Performed By: #### CBC #### [facility] [address] [place] [address] Dr. Dwight Mario Hemoglobin (Bld) [Mass/Vol] 12.6 g/dL Normal 12.0-16.0 [facility] Comment on above: Performed By: #### CBC #### [facility] [address] [place] [address] Dr. Dwight Mario IG # 0.03 10e3/ul Normal 0.00-0.03 [facility] Comment on above: Performed By: #### CBC #### [facility] [address] [place] [address] Dr. Dwight Mario IG % 0.3 % Normal 0.0-0.5 [facility] Comment on above: Performed By: #### CBC #### [facility] [address] [place] [address] Dr. Dwight Mario LYMPH # 2.9 103/ul Normal 1.2-3.8 [facility] Comment on above: Performed By: #### CBC #### [facility] [address] [place] [address] Dr. Dwight Mario Lymphocytes/100 WBC (Bld) 29.0 % Normal 20.5-60.0 [facility] Comment on above: Performed By: #### CBC #### [facility] [address] [place] [address] Dr. Dwight Mario MANUAL DIFF REQ NO Normal [facility] Comment on above: Performed By: #### CBC #### [facility] [address] [place] [address] Dr. Dwight Mario MCH (RBC) [Entitic mass] 30.3 pg Normal 26.7-34.0 [facility] Comment on above: Performed By: #### CBC #### [facility] [address] [place] [address] Dr. Dwight Mario MCHC (RBC) [Mass/Vol] 32.9 g/dL Normal 29.9-35.2 [facility] Comment on above: Performed By: #### CBC #### [facility] [address] [place] [address] Dr. Dwight Mario MCV (RBC) [Entitic vol] 92.1 fL Normal 81.0-99.0 [facility] Comment on above: Performed By: #### CBC #### [facility] [address] [place] [address] Dr. Dwight Mario MONO # 0.8 103/ul Normal 0.3-0.8 [facility] Comment on above: Performed By: #### CBC #### [facility] [address] [place] [address] Dr. Dwight Mario Monocytes/100 WBC (Bld) 7.9 % Normal 1.7-12.0 [facility] Comment on above: Performed By: #### CBC #### [facility] [address] [place] [address] Dr. Dwight Mario NEUT # 5.9 103/ul Normal 1.4-6.5 [facility] Comment on above: Performed By: #### CBC #### [facility] [address] [place] [address] Dr. Dwight Mario Neutrophils/100 WBC (Bld) 59.6 % Normal 43.0-75.0 [facility] Comment on above: Performed By: #### CBC #### [facility] [address] [place] [address] Dr. Dwgiht Mario Platelet mean volume (Bld) [Entitic vol] 9.4 fL Critically low 9.5-13.5 [facility] Comment on above: Performed By: #### CBC #### [facility] [address] [place] [address] Dr. Dwight Mario PLT 385 103/ul Normal 150-450 [facility] Comment on above: Performed By: #### CBC #### [facility] [address] [place] [address] Dr. Dwight Mario RBC 4.16 106/ul Critically low 4.20-5.40 [facility] Comment on above: Performed By: #### CBC #### [facility] [address] [place] [address] Dr. Dwight Mario WBC 10.0 103/ul Normal 4.0-11.0 [facility] Comment on above: Performed By: #### CBC #### [facility] [address] [place] [address] Dr. Dwight Mario LIPID PROFILEon 01-29-2022 CHOL-HDL RATIO NORM SEE BELOW Normal [facility] Comment on above: Result Comment: 3.3 - 4.4 LOW RISK 4.4 - 7.1 AVERAGE RISK 7.1 - 11.0 MODERATE RISK >11.0 HIGH RISK Performed By: #### L IPID, BMP, ALT, TSH ####[facility] [address] [id number][address] Dwight Mario Cholesterol [Mass/Vol] 184 mg/dL Normal <=200 [facility] Comment on above: Performed By: #### LIPID, BMP, ALT, TSH ####[facility] [address] [id number]. Dwight Mario Cholesterol in HDL [Mass/Vol] 61 mg/dL Critically high 40-60 [facility] Comment on above: Performed By: #### LIPID, BMP, ALT, TSH ####[facility] [address] [id number]. Dwight Mario Cholesterol in LDL [Mass/Vol] 96.0 mg/dL Normal [facility] Comment on above: Performed By: #### LIPID, BMP, ALT, TSH ####[facility] [address] [id number]. Dwight Mario Cholesterol.tota l/Cholesterol in HDL [Mass ratio] 3.0 {ratio} Normal [facility] Comment on above: Performed By: #### LIPID, BMP, ALT, TSH ####[facility] [address] [place] [id number]. Melissalan Mario HDL NORMAL > or = 60 mg/dl - LO W CARDIOVASCULAR RISK <40 mg/dl - HIGH CARDIOVASCULAR RISK Normal [facility] Comment on above: Performed By: #### LIPID, BMP, ALT, TSH ####[facility] [address] [place] [id number]. Melissalan Mario LDL CALC NORMAL SEE BELOW Normal [facility] Comment on above: Result Comment: <100 mg/dl OPTIMAL 100 - 129 mg/dl NEAR OR ABOVE OPTIMAL 130 - 159 mg/dl BORDERLINE HIGH 160 - 189 mg/dl HIGH >190 mg/dl VERY HIGH Performed By: #### L IPID, BMP, ALT, TSH ####[facility] [address] [place], [place] [address]Nt. Dwight Mario Triglyceride [Mass/Vol] 135 mg/dL Normal <=150 [facility] Comment on above: Performed By: #### LIPID, BMP, ALT, TSH ####[facility] [address] [place], [place] [address]Cy. Dwight Mario VLDL CALC 27.0 mg/dL Normal [facility] Comment on above: Performed By: #### LIPID, BMP, ALT, TSH ####[facility] [address] [place], [place] [address]Im. Dwight Mario MG MAMM SCREEN 3D ALLEGRA CADon 01-29-2022 MG MAMM SCREEN 3D ALLEGRA CAD Patient: MUNIRA CHESTER Exam Date: 01/29/2022 : 1950 Gender:F Ordering : DR ANDREA WU D.O. Admission #: [id number] Family : DR. MADISON BURNS D.O. Order #: [id number] CLICK HERE TO VIEW EXAM RADIOLOGY REPORT [...] breast cancer at age 61. LOCATION: [facility] BREAST COMPOSITION: Scattered areas fibroglandular density. [...] MD on 01/29/2022 at 15:25 Normal [facility] PROF CHEM 8 (BAS METB)on Anion gap [Moles/Vol] 9.7 mmol/L Normal [facility] Comment on above: Performed By: #### LIPID, BMP, ALT, TSH ####[facility] [address] [place] [address]Dr. Dwight Mario Calcium [Mass/Vol] 8.9 mg/dL Normal 8.5-10.1 [facility] Comment on above: Performed By: #### LIPID, BMP, ALT, TSH ####[facility] [address] [place] [address]Dr. Dwight Mario Chloride [Moles/Vol] 105 mmol/L Normal 98-107 [facility] Comment on above: Performed By: #### LIPID, BMP, ALT, TSH ####[facility] [address] [place] [address]Dr. Dwight Mario CO2 [Moles/Vol] 27.3 mmol/L Normal 21.0-32.0 [facility] Comment on above: Performed By: #### LIPID, BMP, ALT, TSH ####[facility] [address] [place] [address]Dr. Dwight Mario Creatinine [Mass/Vol] 0.80 mg/dL Normal 0.55-1.02 [facility] Comment on above: Performed By: #### LIPID, BMP, ALT, TSH ####[facility] [address] [place] [address]Dr. Dwihgt Mario EGFR-AF BERMUDIAN >60 Normal >=60 [facility] Comment on above: Performed By: #### LIPID, BMP, ALT, TSH ####[facility] [address] [place] [address]Dr. Dwight Mario EGFR-NON AF BERMUDIAN >60 Normal >=60 [facility] Comment on above: Performed By: #### LIPID, BMP, ALT, TSH ####[facility] [address] [place], [place] [address]Dr. Dwight Mario Glucose [Mass/Vol] 107 mg/dL Critically high 74-106 [facility] Comment on above: Performed By: #### LIPID, BMP, ALT, TSH ####[facility] [address] [place] [address]Dr. Dwight Mario Potassium [Moles/Vol] 4.0 mmol/L Normal 3.5-5.1 [facility] Comment on above: Performed By: #### LIPID, BMP, ALT, TSH ####[facility] [address] [place] [address]Dr. Dwight Mario Sodium [Moles/Vol] 138 mmol/L Normal 136-145 [facility] Comment on above: Performed By: #### LIPID, BMP, ALT, TSH ####[facility] [address] [place] [address]Dr. Dwight Mario Urea nitrogen [Mass/Vol] 20.0 mg/dL Critically high 7.0-18.0 [facility] Comment on above: Performed By: #### LIPID, BMP, ALT, TSH ####[facility] [address] [place] [address]Dr. Dwight Mario Urea nitrogen/Creatin ine [Mass ratio] 25.0 mg/mg Normal [facility] Comment on above: Performed By: #### LIPID, BMP, ALT, TSH ####[facility] [address] [place] [address]Dr. Dwight Mario SGPTon 01-29-2022 ALT [Catalytic activity/Vol] 26 U/L Normal 14-59 [facility] Comment on above: Performed By: #### LIPID, BMP, ALT, TSH ####[facility] [address] [place] [address]Dr. Dwight Mario TSHon 01-29-2022 TSH 5.901 uIU/mL Critically high 0.358-3.740 [facility] Comment on above: Performed By: #### LIPID, BMP, ALT, TSH ####[facility] [address] [place] [address]Dr. Dwight Mario XR shoulder LT min 2V*on XR shoulder LT min 2V* [facility] Main [place] [address] [place] [address] XRay Report Signed Patient: Munira Chester MR#: [id number] : 1950 Acct:[id number] Age/Sex: 71 / F ADM Date: 10/10/21 Loc: [facility] – [place] Room: Type: [facility] Attending Dr: Espinoza Botello MD Copies [...] Abelino Prado M.D.10/10/2021 1:25 PM Dictation Location: [place] [address] Transcribed By: [facility] 10/10/21 1325 Dictated By: Abelino Prado II, MD 10/10/21 1324 Signed By: 10/10/21 1325 [facility] MRI SHOULDER LT WO CONon MRI [...] by: YOVANA COTTRELL Date: 2021-10-03 15:02 Normal [facility] Vital Signs Date Time Vital Sign Value Performing Clinician Facility 05-14-2023 12:52-0500 Blood Pressure Location [facility] 05-14-2023 12:52-0500 Diastolic blood pressure 89 mm[Hg] [facility] 05-14-2023 12:52-0500 Heart rate 89 /min [facility] 05-14-2023 12:52-0500 Respiratory rate 16 /min [facility] 05-14-2023 12:52-0500 Systolic blood pressure 135 mm[Hg] [facility] 04-16-2023 09:00-0500 Body height 154.94 cm Andrea Ball Other [facility] Other 04-16-2023 09:00-0500 Body mass index (BMI) [Ratio] 30.12 kg/m2 Andrea Ball Other [facility] Other 04-16-2023 09:00-0500 Body weight 72.3 kg Andrea Ball Other [facility] Other 04-16-2023 09:00-0500 Diastolic blood pressure 86 mm[Hg] Andrea Ball Other [facility] Other 04-16-2023 09:00-0500 Respiratory rate 20 /min Andrea Ball Other [facility] Other 04-16-2023 09:00-0500 SaO2% (BldA) [Mass fraction] 95 % Andrea Ball Other [facility] Other 04-16-2023 09:00-0500 Systolic blood pressure 150 mm[Hg] Andrea Ball Other [facility] Other 02-18-2023 11:45-0500 Body height 154.94 cm Andrea Ball Other [facility] Other 02-18-2023 11:45-0500 Body mass index (BMI) [Ratio] 29.4 kg/m2 Andrea Ball Other [facility] Other 02-18-2023 11:45-0500 Body weight 70.58 kg Andrea Ball Other [facility] Other 02-18-2023 11:45-0500 Diastolic blood pressure 80 mm[Hg] Andrea Ball Other [facility] Other 02-18-2023 11:45-0500 Respiratory rate 12 /min Andrea Ball Other [facility] Other 02-18-2023 11:45-0500 SaO2% (BldA) [Mass fraction] 98 % Andrea Ball Other [facility] Other 02-18-2023 11:45-0500 Systolic blood pressure 148 mm[Hg] Andrea Ball Other [facility] Other 01-25-2023 08:30-0500 Body height 154.94 cm Andrea Ball Other [facility] Other 01-25-2023 08:30-0500 Body mass index (BMI) [Ratio] 29.59 kg/m2 Andrea Ball Other [facility] Other 01-25-2023 08:30-0500 Body weight 71.03 kg Andrea Ball Other [facility] Other 01-25-2023 08:30-0500 Diastolic blood pressure 77 mm[Hg] Andrea Ball Other [facility] Other 01-25-2023 08:30-0500 Respiratory rate 12 /min Andrea Ball Other [facility] Other 01-25-2023 08:30-0500 Systolic blood pressure 118 mm[Hg] Andrea Ball Other [facility] Other 12-12-2022 13:45-0400 Body height 154.94 cm Andrea Ball Other [facility] Other 12-12-2022 13:45-0400 Body mass index (BMI) [Ratio] 29.36 kg/m2 Andrea Ball Other [facility] Other 12-12-2022 13:45-0400 Body weight 70.49 kg Andrea Ball Other [facility] Other 12-12-2022 13:45-0400 Diastolic blood pressure 79 mm[Hg] Andrea Ball Other [facility] Other 12-12-2022 13:45-0400 Respiratory rate 12 /min Andrea Ball Other [facility] Other 12-12-2022 13:45-0400 SaO2% (BldA) [Mass fraction] 98 % Andrea Ball Other [facility] Other 12-12-2022 13:45-0400 Systolic blood pressure 130 mm[Hg] Andrea Ball Other [facility] Other 11-01-2022 15:05-0400 Body height 154.94 cm Shannan Webster Other [facility] Other 11-01-2022 15:05-0400 Body mass index (BMI) [Ratio] 28.34 kg/m2 Shannan Webster Other [facility] Other 11-01-2022 15:05-0400 Body temperature 96.2 [degF] Shannan Webster Other [facility] Other 11-01-2022 15:05-0400 Body weight 68.04 kg Shannan Darin Other [facility] Other 11-01-2022 15:05-0400 Diastolic blood pressure 69 mm[Hg] Shannan Webster Other [facility] Other 11-01-2022 15:05-0400 Respiratory rate 18 /min Shannan Webster Other [facility] Other 11-01-2022 15:05-0400 SaO2% (BldA) [Mass fraction] 99 % Shannan Darin Other [facility] Other 11-01-2022 15:05-0400 Systolic blood pressure 130 mm[Hg] Shannan Darin Other [facility] Other 03-05-2022 15:00-0500 Body height 162.56 cm Luma Chirinos Other [facility] Other 12-01-2021 09:55-0400 Blood Pressure Location Asuncion Lue [facility] 12-01-2021 09:55-0400 Diastolic blood pressure 89 mm[Hg] Asuncion Lue [facility] 12-01-2021 09:55-0400 Heart rate 81 /min Asuncion Lue [facility] 12-01-2021 09:55-0400 Systolic blood pressure 140 mm[Hg] Asuncion Lue [facility] 10-10-2021 10:15-0400 Body height 162.56 cm Espinoza Botello Other [facility] Other 10-10-2021 10:15-0400 Body mass index (BMI) [Ratio] 24.89 kg/m2 Espinoza Botello Other [facility] Other 10-10-2021 10:15-0400 Body weight 65.77 kg Espinoza Botello Other [facility] Other Encounters Encounter Date Encounter Type Care Provider Facility Start: 02-19-2024 ambulatory Asuncion StephenJose Howardkarina Facility:[facility] Start: 05-16-2023 End: 05-16-2023 ambulatory CHARITO VASQUEZ Not Available Start: 05-14-2023 ambulatory Del Muhammad lity:[facility] Start: 05-14-2023 End: 05-14-2023 Patient encounter procedure [facility] Start: 04-22-2023 Bamboo flowsdanial brasher MD Work Phone: [facility] Start: 04-22-2023 Bamboo flowsheet Charito brasher MD Work Phone: [facility] Start: 04-22-2023 Telephone encounter Andrea Wu [facility] Start: 04-22-2023 End: 04-22-2023 ambulatory CHARITO VASQUEZ [facility] [employer] Other Start: 04-19-2023 End: 04-19-2023 ambulatory Andrea Wu Other [facility] Other Start: 04-19-2023 Telephone encounter Andrea Wu [facility] Start: 04-18-2023 Telephone encounter Andrea Wu [facility] Start: 04-18-2023 End: 04-18-2023 ambulatory Andrea Wu Other Facility:[facility] Start: 04-16-2023 End: 04-16-2023 ambulatory Andrea Wu Other [facility] Other Start: 04-16-2023 Office outpatient vi sit 25 minutes Andrea Wu [facility] Start: 04-04-2023 End: 04-04-2023 ambulatory Andrea Wu Other [facility] Other Start: 04-04-2023 Telephone encounter Andrea WALLACE [facility] Start: 03-08-2023 End: 03-08-2023 ambulatory Andrea Wu Other [facility] Other Start: 03-08-2023 Telephone encounter Andrea WALLACE [facility] Start: 03-07-2023 End: 03-07-2023 ambulatory ANA VALIENTE Not Available Start: 03-06-2023 Telephone encounter Andrea WALLACE [facility] Start: 03-06-2023 End: 03-06-2023 ambulatory MADISON BURNS [facility] Other Start: 02-25-2023 End: 02-25-2023 ambulatory Andrea Wu Other [facility] Other Start: 02-25-2023 Telephone encounter Andrea WALLACE [facility] Start: 02-20-2023 End: 02-21-2023 ambulatory Asuncion Buchanan Facility:[facility] Start: 02-20-2023 End: 02-20-2023 Patient encounter procedure Asuncion Buchanan [facility] Start: 02-18-2023 End: 02-18-2023 ambulatory Andrea Wu Other [facility] Other Start: 02-18-2023 Office outpatient vi sit 15 minutes Andrea Wu [facility] Start: 02-05-2023 End: 02-05-2023 ambulatory Andrea Wu Other [facility] Other Start: 02-05-2023 Telephone encounter Andrea Wu [facility] Start: 01-31-2023 End: 01-31-2023 ambulatory Andrea Wu Other [facility] Other Start: 01-31-2023 Telephone encounter Andrea Wu [facility] Start: 01-29-2023 End: 01-29-2023 ambulatory Andrea Wu Other [facility] Other Start: 01-29-2023 Telephone encounter Andrea Wu [facility] Start: 01-25-2023 End: 01-25-2023 ambulatory Andrea Wu Other [facility] Other Start: 01-25-2023 Patient encounter procedure Andrea Wu [facility] Start: 01-25-2023 Telephone encounter Andrea Wu [facility] Start: 12-12-2022 End: 12-12-2022 ambulatory Andrea Wu Other [facility] Other Start: 12-12-2022 Office outpatient vi sit 15 minutes Andrea Wu [facility] Start: 11-07-2022 End: 11-07-2022 ambulatory Andrea Wu Other [facility] Other Start: 11-07-2022 Telephone encounter Andrea Wu [facility] Start: 11-01-2022 End: 11-01-2022 ambulatory Shannan Webster Other [facility] Other Start: 11-01-2022 Office outpatient vi sit 25 minutes Shannan Webster [facility] Start: 06-27-2022 End: 06-28-[address] JEROME ESPINOSA Facility:[facility] Start: 06-04-2022 End: 06-04-2022 ambulatory Andrea Wu Other [facility] Other Start: 06-04-2022 Telephone encounter Andrea Wu [facility] Start: 05-17-2022 End: 05-18-[address] CAMPOS SHAH Facility:[facility] Start: 04-26-2022 End: 04-27-[address] JEROME ESPINOSA Facility:[facility] Start: 04-25-2022 End: 04-25-2022 ambulatory Andrea Wu Other [facility] Other Start: 04-25-2022 Telephone encounter Andrea [place] [facility] Start: 04-10-2022 End: 04-10-2022 ambulatory Andrea [place] Other [facility] Other Start: 04-10-2022 Telephone encounter Andrea [place] [facility] Start: 04-07-2022 Encounter for preprocedural cardiovascular examination [facility] Start: 04-07-2022 Encounter for preprocedural laboratory examination [facility] Start: 04-06-2022 End: 04-06-2022 ambulatory Andrea Wu Other [facility] Other Start: 04-06-2022 Telephone encounter Andrea Wu [facility] Start: 04-05-2022 End: 04-05-[address] JEROME ESPINOSA Facility:[facility] Start: 04-02-2022 End: 04-03-2022 [facility] Start: 04-02-2022 End: 04-03-2022 Encounter for preprocedural cardiovascular examination BASHIR DANIELLE Facility:[facility] Start: 03-28-2022 End: 03-29-[address] JEROME ESPINOSA Facility:[facility] Start: 03-20-2022 End: 03-21-[address] ANDREA WU Facility:[facility] Start: 03-12-2022 End: 03-12-[address] JEROME ESPINOSA Facility:[facility] Start: 03-05-2022 End: 03-05-2022 ambulatory Luma Chirinos Other [facility] Other Start: 03-05-2022 Office outpatient vi sit 15 minutes Luma Chirinos [facility] Start: 01-29-2022 End: 01-30-[address] ANDREA WU Facility:[facility] Start: 01-18-2022 Adult health examination Shannan Webster Other [facility] Other Start: 12-01-2021 End: 12-01-2021 Patient encounter procedure Asuncion Buchanan [facility] Start: 10-10-2021 End: 10-10-2021 ambulatory Espinoza Botello Other [facility] Other Start: 10-10-2021 Office outpatient vi sit 25 minutes Espinoza Botello [facility] Start: 10-10-2021 End: 10-10-2021 Patient encounter procedure MD Espinoza Botello Work Phone: [facility] Start: 10-05-2021 End: 10-05-2021 ambulatory Espinoza Botello Other [facility] Other Start: 10-05-[address] Botello [facility] Start: 10-02-2021 End: 10-03-[address] ANDREA WU Facility:[facility] Procedures Date Procedure Procedure Detail Performing Clinician Start: 02-05-2023 Mammography Charito Vasquez MD Work Phone: Start: 10-10-2021 Plain X-ray of left shoulder MD Espinoza kidd Work Phone: Start: 09-07-2019 Colonoscopy Charito Vasquez MD Work Phone: Start: 09-07-2019 Colonoscopy Asuncion Buchanan Start: 09-07-2019 Esophagogastroduodenoscopy Asuncion Buchanan Start: 01-16-2015 Colonoscopy Asuncion Buchanan Comment on above: normal Start: 01-16-2015 Esophagogastroduodenoscopy Asuncion Buchanan Start: 08-17-2011 Esophagogastroduodenoscopy Asuncion Lue Start: 05-17-2011 Esophagogastroduodenoscopy Asuncion Lukarina Start: 06-16-2010 Laparoscopic cholecystectomy Asuncion Buchanan Start: 01-16-2010 Colonoscopy Asuncion Lue Bilateral cataracts (disorder) Asuncion Lue section Asuncion Buchanan Depression screening Shannan araujo Other Foot structure (body structure) Asuncion Buchanan Ligation of fallopian tube K samanthay Dewayne Repair of musculoten dinous cuff of shoulder Asuncion Buchanan Screening for malign ant neoplasm of breast Shannan Webster Other Screening for malign ant neoplasm of colon Shannan Webster Other Plan of Treatment Date Care Activity Detail Author Start: 09-06-2029 Screening for malign ant neoplasm of colon [facility] Start: 04-08-2024 End: 04-08-2024 Patient encounter procedure 04/08/2024 9:45 AM EST Office Visit [facility] [address] [place] [address] Madison Burns, DO [address] [place] [address] [facility] Start: 02-06-2024 Screening for malign ant neoplasm of breast [facility]ammogram [facility] Start: 01-20-2024 End: 01-20-2024 Patient encounter procedure 01/20/2024 8:15 AM EST Office Visit [facility] [address] [place] [address] Uriah Kilpatrick, DO [address] [place] [address] [facility] Start: 04-22-2023 End: 04-22-2023 Patient encounter procedure 04/22/2023 11:00 AM EST Office Visit [facility] [address] [place] [address] Charito Vasquez MD [address] [place] [address] Arrived [facility] Comment on above: Arrived Start: 1950 Screening for malign ant neoplasm of colon [facility] Immunizations Immunization Date Immunization Notes Care Provider [facility] 12-31-2022 Flu Shot - Documentation Purposes Only Andrea Wu Other [facility] Other 12-31-2022 influenza virus vaccine, unspecified formulation Asuncion Lue [facility] 12-22-2021 SARS-CoV-2 (COVID-19 ) [id number] Asuncion Lue [facility] 12-18-2021 influenza virus vaccine, split virus (incl. purified surface antigen) Shannan Webster Other [facility] Other 12-18-2021 influenza virus vaccine, unspecified formulation Asuncion Lue [facility] 07-04-2021 SARS-CoV-2 (COVID-19 ) mRNA-1273 vaccine Asuncion Lue [facility] 01-23-2021 SARS-CoV-2 (COVID-19 ) mRNA-1273 vaccine Asuncion Lue [facility] 11-23-2020 influenza virus vaccine, split virus (incl. purified surface antigen) Shannan Webster Other [facility] Other 11-23-2020 influenza virus vaccine, unspecified formulation Asuncion Lue [facility] 06-02-2020 SARS-CoV-2 (COVID-19 ) mRNA-1273 vaccine Asuncion Lue [facility] 05-05-2020 SARS-CoV-2 (COVID-19 ) mRNA-1273 vaccine Asuncion Lue [facility] 03-18-2020 SARS-CoV-2 (COVID-19 ) mRNA-1273 vaccine Asuncion Lue [facility] Comment on above: Result Comment: 3 sh ots to date 12-07-2019 influenza virus vaccine, split virus (incl. purified surface antigen) Shannan Webster Other [facility] Other 12-07-2019 influenza virus vaccine, unspecified formulation Asuncion Lue [facility] 01-05-2019 influenza virus vaccine, unspecified formulation Asuncion Lue [facility] 01-05-2019 pneumococcal polysaccharide vaccine, 23 valent Asuncion Lue [facility] 12-17-2018 influenza virus vaccine, unspecified formulation Asuncion Lue [facility] 12-19-2017 influenza virus vaccine, unspecified formulation Asuncion Lue [facility] 01-10-2017 influenza virus vaccine, split virus (incl. purified surface antigen) Shannan Webster Other [facility] Other 01-10-2017 influenza virus vaccine, unspecified formulation Asuncion Lue [facility] 01-10-2017 pneumococcal conjuga te vaccine, 13 valent Asuncion Lue [facility] 01-04-2016 influenza virus vaccine, unspecified formulation Asuncion Lue [facility] 01-04-2016 pneumococcal polysaccharide vaccine, 23 valent Asuncion Lue [facility] Payers Date Payer Category Payer Unknown [employer] [id number] 2021-Present [address] [place] [address] [id number] 2017 Medicare MEDICARE MEDICAR E PART B [id number] 2017-Present [address] [address] [place] [address] Medicare [id number] 1959 Medicare [id number] 1959 Unknown [id number] 2.16.840.1.550536.19 1950 Unknown [id number] 2.16.840.1.843903.3.579.2.593 1950 Unknown [id number] 2.16.840.1.588819.3.579.2.593 1950 Unknown [id number] 2.16.840.1.289949.3.579.2.593 1950 Unknown [id number] 2.16.840.1.400058.3.579.2.593 1950 Unknown [id number] 2.16.840.1.844440.3.579.2.593 1952 Unknown [id number] 2.16.840.1.428970.3.579.2.593 1950 Unknown [id number] 2.16.840.1.804188.3.579.2.593 1952 Unknown [id number] 2.16.840.1.194017.3.579.2.593 1952 Unknown [id number] 2.16.840.1.764747.3.579.2.593 1950 Unknown [id number] 2.16.840.1.883353.3.579.2.593 1950 Unknown [id number] 2.16.840.1.836497.3.579.2.727 1950 Unknown [id number] 2.16.840.1.307396.3.579.2.727 1950 Unknown [id number] 2.16.840.1.601478.3.579.2.727 1950 Unknown [id number] 2.16.840.1.843575.3.579.2.1259 1952 Unknown [id number] 2.16.840.1.469492.3.579.2.1259 1950 Unknown [id number] 2.16.840.1.664904.3.579.2.1259 1950 Unknown [id number] 2.16.840.1.123989.3.579.2.1259 Self-pay Self Pay [id number] Unknown [place] BC/BS [id number] Social History Date Type Detail Facility Unknown if ever smoked [facility] Other Start: 03-07-2023 Sex Assigned At N [facility] Other Start: 11-11-2018 End: 05-14-2023 Tobacco smoking status NHIS Never smoked tobacco (finding) [facility] Start: 1950 Sex Assigned At Female F [facility] Tobacco smoking status Never [facility] Start: 03-07-2023 Tobacco use and exposure Smokeless tobacco non-user [facility] Start: 03-07-2023 Alcohol intake Lifetime non-d brian (finding) [facility] Start: 03-07-2023 History of Social function [facility] Start: 03-05-2023 Alcohol Comment Caffeine : soda [facility] Start: 08-28-2022 Gender identity Identifies as female gender (finding) [facility] Medical Equipment Procedure Code Equipment Code Equipment Origin al Text Equipment Identifier Dates Arthroscopy, shoulder ANCHOR SUTURE FT III [id number] FDA Start: 11-11-2018 Functional Status Date Assessment Result Facility 05-14-2023 Functional Status N/A [facility] 02-20-2023 Functional Status N/A [facility] 12-01-2021 Functional Status N/A [facility] Clinical Notes 10-10-2021 to 04-22-2023 Note Date & Type Note Facility 04-22-2023 Evaluation note Encounter Date Diagnosis Assessment Notes Apr, Moderate persistent asthma without complication (ICD-10 - J45.40) [facility] Other 02-02-2024 Evaluation note* Encounter Date Diagnosis Assessment Notes Treatment Notes Treatment Clinical Notes Apr, Moderate persistent asthma with acute exacerbation (ICD-10 - J45.41) [facility] Other 01-30-2024 Evaluation note* Encounter Date Diagnosis [...] Claritin, Singulair and Flonase Scheduled to see cover mat machine operator. Mar, Gastroesophageal reflux disease with esophagitis without hemorrhage (ICD-10 - K21.00) Avoid lying flat after eating. Avoid eating 2 hours prior to bedtime. Smaller, frequent meals may be better tolerated.Weight loss if overweight.PPI with any heartburn.Monitor for dysphagia. [facility] Other 01-18-2024 Evaluation note* Encounter Date Diagnosis Assessment Notes Treatment Notes Treatment Clinical Notes Mar, Iron deficiency anemia due to chronic blood loss (ICD-10 - D50.0) [facility] Other 12-22-2023 Evaluation note* Encounter Date Diagnosis Assessment Notes Treatment Notes Treatment Clinical Notes Feb, Iron deficiency anemia due to chronic blood loss (ICD-10 - D50.0) [facility] Other 12-20-2023 Evaluation note* Encounter Date Diagnosis Assessment Notes Treatment Notes Treatment Clinical Notes Feb, Anemia (ICD-10 - D64.9) [facility] Other 12-11-2023 Evaluation note* Encounter Date Diagnosis Assessment Notes Treatment Notes Treatment Clinical Notes Feb, Moderate persistent asthma without complication (ICD-10 - J45.40) [facility] Other 12-06-2023 Hospital Discharge instructions Patient Education [...] relieve pelvic muscle tension or spasms. Take dmqv-smd-bbvhlbe and prescription medicines only as told by [...] provider. Document Revised: 07/12/2021 Document Reviewed: 07/12/2021 [employer] Patient Education 2022 [email or web address]. 02/20/2023 09:44:59 Kegel Exercises Kegel Exercises Kegel [...] provider. Document Revised: 07/13/2021 Document Reviewed: 07/13/2021 [employer] Patient Education 2022 [email or web address]. Follow Up Care 01/31/2022 08:50:25 With:Dewayne VILLEGAS, RANDAL Arizmendi, URO Address: [address] [place] [phone] When: Unknown Comments:1 yr [facility] 12-04-2023 Evaluation note* Encounter Date Diagnosis Assessment Notes Treatment Notes Treatment Clinical Notes Feb, Moderate persistent asthma with acute exacerbation (ICD-10 - J45.41) Holding Breo for trial of Trelegy. Avoid dust, mold, fumes as much as possible. Steroid taper to break cycle of coughing Refer to Sas Programmer and Director Of Clinical Services when stable Feb, Non-seasonal allergi c rhinitis due to other allergic trigger (ICD-10 - J30.89) Continue FLonase NS Add Astepro NS Continue Claritin and Singulair Feb, Gastroesophageal reflux disease with esophagitis without hemorrhage (ICD-10 - K21.00) Diet instructions: Smaller portions, avoid eating and laying flat, avoid eating or drinking prior to bedtime. Weight loss. Continue [employer] Other 11-21-2023 Evaluation note* Encounter Date Diagnosis Assessment Notes Treatment Notes Treatment Clinical Notes Jan, Age-related osteopor osis without current pathological fracture (ICD-10 - M81.0) Jan, Hypercholesteremia (ICD-10 - E78.00) [facility] Other 11-14-2023 Evaluation note* Encounter Date Diagnosis Assessment Notes Treatment Notes Treatment Clinical Notes Jan, Menopause (ICD-10 - Z78.0) [facility] Other 11-10-2023 Evaluation note* Encounter Date Diagnosis Assessment Notes Treatment Notes Treatment Clinical Notes Jan, Hypercholesteremia (ICD-10 - E78.00) [facility] Other 11-10-2023 Evaluation note* Encounter Date Diagnosis [...] much improved. Offered PFT and referral to Director Of Clinical Services. Jan, Autoimmune thyroidit is (ICD-10 - E06.3) [...] LORENZO (generalized anxiety disorder) (ICD-10 - F41.1) [facility] Other 09-27-2023 Evaluation note* Encounter Date Diagnosis Assessment Notes Treatment Notes Treatment Clinical Notes Nov, Moderate persistent asthma with acute exacerbation (ICD-10 - J45.41) Reviewed medication - continue LABA/ICS and NIKO - continue Singulair, Claritin and Flonase Suggested short course of Steroids and antibiotics. Discussed use of LAMA in combination of what she is presently taking CXR if no improvement [facility] Other 08-23-2023 Evaluation note* Encounter Date Diagnosis Assessment Notes Treatment Notes Treatment Clinical Notes Oct, Mild persistent asthma, uncomplicated (ICD-10 - J45.30) [facility] Other 08-17-2023 Evaluation note* Encounter Date Diagnosis [...] understanding and is agreeable to treatment plan [facility] Other 04-12-2023 NotePROCEDURE: XR FOOT RT MIN [...] Electronically authenticated by: JEROME ESPINOSA Date: 2022-06-27 15:36[facility]03-02-2023 NotePROCEDURE: XR FOOT RT MIN 3 VIEWS [...] Electronically authenticated by: CAMPOS SHAH Date: 2022-05-17 16:27[facility]02-09-2023 NotePROCEDURE: XR FOOT RT MIN 3 VIEWS [...] or change in alignment. Electronically authenticated by: JERMOE ESPINOSA Date: 2022-04-26 09:37[facility]01-19-2023 NotePROCEDURE: XR FOOT RT MIN 3 VIEWS [...] Electronically authenticated by: JEROME ESPINOSA Date: 2022-04-05 14:43[facility]01-19-2023 NotePROCEDURE: XR FOOT RT 2V HISTORY: Pain COMPARISON: XR foot right 03/28/2022 FINDINGS: BONES:Multiple intraoperative spot fluoroscopic images demonstrate placement of a lag screw longitudinally within the base of the fifth metatarsal securing the proximal metaphyseal fracture. SOFT TISSUES:Expected intraoperative findings. EFFUSION:None visible. OTHER: Negative. IMPRESSION: 1. Intraoperative fixation of base of right fifth metatarsal fracture. Electronically authenticated by: JEROME ESPINOSA Date: 2022-04-05 14:41[facility]01-11-2023 NotePROCEDURE: XR FOOT RT MIN 3 VIEWS [...] Electronically authenticated by: JEROME ESPINOSA Date: 2022-03-28 10:17[facility]12-26-2022 NotePROCEDURE: XR FOOT RT MIN 3 VIEWS [...] Electronically authenticated by: JEROME ESPINOSA Date: 2022-03-12 09:46[facility]12-19-2022 Evaluation note* Encounter Date Diagnosis Assessment Notes Treatment Notes Treatment Clinical Notes Feb, Acute pain of left shoulder (ICD-10 - M25.512) Feb, Tear of left supraspinatus tendon (ICD-10 - M75.102) A 1/1cc marcaine / kenalog cortisone injection was performed into the subacromial space under sterile technique. Patient tolerated the injection well with no adverse reaction. [facility] Other 09-16-2022 Hospital Discharge instructions Patient Education [...] nerve stimulation). For women, using a medical advisor to prevent urine leaks. This is a [...] right after experiencing incontinence. General instructions Take sczh-jsf-jybrhmm and prescription medicines only as told by [...] 04/11/2005 Document Revised: 03/14/2018 Document Reviewed: 06/13/2017 [employer] Patient Education 2020 [employer] Follow Up Care 10/20/2021 08:23:44 With:Dewayne VILLEGAS, RANDAL Arizmendi, URO Address: When: Unknown [facility] 2022 Evaluation note* Encounter Date Diagnosis [...] the injection well with no adverse reaction. [facility] Other Evaluation + Plan note Future Appointments Appointment Date:01/31/2022 08:00:00 AM Scheduled Provider:Asuncion Buchanan MD Location:[facility] Appointment Type:URO Office Visit [facility] Evaluation + Plan note Future Appointments Appointment Date:02/19/2024 08:00:00 AM Scheduled Provider:Asuncion Buchanan MD Location:[facility] Appointment Type:URO Office Visit [facility] evaluation + Plan note Future Appointments Appointment Date:05/22/2023 08:00:00 AM Scheduled Provider: Location:[facility] Appointment Type:Surgery FT Appointment Date:02/19/2024 08:00:00 AM Scheduled Provider:Asuncion Buchanan MD Location:[facility] Appointment Type:URO Office Visit [facility] Evaluation noteNo Information[employer] Other Evaluation noteNo assessment information available [facility] Work Phone: History general Narrative - Reported* Type Description [...] see above Hospitalization History blood transfusion from [employer] Other [employer] general Narrative - Reported* Type Description Date [...] see above Hospitalization History blood transfusion from [employer] Other [employer] general Narrative - Reported* Type Description Date [...] see above Hospitalization History blood transfusion from [employer] Other [employer] general Narrative - Reported* Type Description Date [...] see above Hospitalization History blood transfusion from [employer] Other [employer] general Narrative - Reported* Type Description Date [...] above Hospitalization History blood transfusion from [facility] Other Hospital course Narrative No data available for this section [facility] [employer] Hospital Discharge instructions No data available for this section [facility] Progress note No data available for this section [facility] [employer] Reason for referral (narrative)* Reason *FU 04/23 Referral for iron deficiency anemia. Diagnosis 1 Iron deficiency anem ia secondary to inadequate dietary iron intake (D50.8) Referral Organization [facility] kenny Referring Provider First Name Andrea Referring Provider Last Name [place] Referring Provider Specialty Internal Me dicine Referred Organization [facility] Referred Provider AZAM VILLA Referred Address [address] [place], [place],[address] Referred Provider Specialty Hematology Referral Priority Routine [...] faxed Clinical Notes Include labs results p: [id number] f: [id number] Reason Referral for pe rsistent cough and wheezing Diagnosis 1 Moderate persistent asthma with acute exacerbation (J45.41) Referral Organization [facility] [place] [facility] Ladonna cox Referring Provider First Name Andrea Referring Provider Last Name [place] Referring Provider Specialty Internal Me jennifer Referred Organization [facility] Referred Provider Edouard Espinosa Referred Address [address], [place],[address] Referred Provider Specialty Pulmonary Aline cantor Referral Priority Routine General Notes Patient w/ allergic rhinitis and asthma w/ deterioration of her symptoms over the past year. Her medications have been maximized and alternative etiology for cough and wheezing addressed. She has been referred to an Sas Programmer for evaluation and scheduled for a PFT. Alla Castillo 04/16/2023 10:39:47 AM >received today, waiting for notes to be locked, and for CXR LABS AND PFT TO BE COMPLETED Shannan Weinberg 04/18/2023 09:54:53 AM > Patient is scheduled with Dr Espinosa's office on 05/15 at 9am Clinical Notes Include CXR, labs an d PFT when completed Reason *04/24 Referral for opinion on further testing for iron deficiency anemia Diagnosis 1 Iron deficiency anem ia secondary to inadequate dietary iron intake (D50.8) Referral Organization [facility] [place] Smallaa Ladonna cox Referring Provider First Name Andrea Referring Provider Last Name [place] Referring Provider Specialty Internal Me césarine Referred Organization [facility] Referred Address [address] [facility] [address] [address],[place], [place],[address] Referred Provider Specialty Gastroentero logy Referral Priority [...] notes locked, referral faxed Clinical Notes f: [phone] [facility] Other Reason for referral (narrative)* Reason *04/23 Referral for iron deficiency anemia. Diagnosis 1 Iron deficiency anem ia secondary to inadequate dietary iron intake (D50.8) Referral Organization [facility] [place] cox Referring Provider First Name Andrea Referring Provider Last Name [place] Referring Provider Specialty Internal Me dicine Referred Organization [facility] Referred Provider ALLENAZAM Referred Address [address], [place],[address] Referred Provider Specialty Hematology Referral Priority Routine [...] faxed Clinical Notes Include labs results p: [id number] f: [phone] Reason Referral for pe rsistent cough and wheezing Diagnosis 1 Moderate persistent asthma with acute exacerbation (J45.41) Referral Organization [facility] kenny Referring Provider First Name Andrea Referring Provider Last Name [place] Referring Provider Specialty Internal Me dicine Referred Organization [facility] Referred Provider Edouard Espinosa Referred Address [address], [place],[address] Referred Provider Specialty Pulmonary Di seases Referral Priority Routine General Notes Patient w/ allergic rhinitis and asthma w/ deterioration of her symptoms over the past year. Her medications have been maximized and alternative etiology for cough and wheezing addressed. She has been referred to an Sas Programmer for evaluation and scheduled for a PFT. [...] inadequate dietary iron intake (D50.8) Referral Organization [facility] [place] Smallaa Ladonna cox Referring Provider First Name Andrea Referring Provider Last Name [place] Referring Provider Specialty Internal Me dicine Referred Organization [facility] Referred Address [address] Hinojosa,[facility] [address],[place], [place],[address] Referred Provider Specialty Gastroentero logy Referral Priority [...] to Hematology for IV iron and evaluation. [facility] Other Summary Purpose Family History No Family History Records Found Relationship Condition Age at Onset Recorded Date/T margaret Not Specified Malignant neoplasm of lung Unknown Malignant neoplasm of pancreas Unknown Diabetes mellitus Unknown father Pneumonia Unknown Chronic headache disorder Unknown sister Malignant neoplasm of breast Unknown brother Acute poliomyelitis Unknown brother Myocardial infarction Unknown brother Malignant neoplasm of colon Unknown Advance Directives No Advanced Directives Records Found Advance Directive Response Recorded Date/ Time Advance [...] section and content) DATE CREATED AUTHOR 10/11/2021 [facility] DATE CREATED AUTHOR AUTHOR'S ORGANIZ ATION 07/02/2022 [facility] DATE CREATED AUTHOR AUTHOR'S ORGANIZ ATION 04/19/2023 [facility] DATE CREATED AUTHOR AUTHOR'S ORGANIZ ATION 05/18/2023 [facility] EPIC Care Teams (unrecognized sec tion and content) Team Status: Inactive Member Role Status Dates Espinoza Botello MD Attending Provider Active Prison Officer Relationship Specialty Start Date End Date Andrea Wu MD [address] [place] [address] PCP - General Internal Medicine 08/27/22 Goals [...] BE BASED ON THE PRIMARY CLINICAL RECORDS. [employer] [facility]. provides no warranty or guarantee of the accuracy or completeness of information in this document.
== END 2023-05-20 13:17 | disposition home or self-care (01) ==
LOC: CT 13:16
PROVIDERS: PCP Internal Medicine
DX: R10.32 Left lower quadrant pain (principal); K57.90 Diverticulosis of intestine, part unspecified, without perforation or abscess without bleeding
CPT/HCPCS: 74176

== ENCOUNTER 2023-06-27 10:03 | Outpatient (OUT) | payer MEDICARE, OTHER, SELFPAY ==
--- OUTSIDE RECORDS SUMMARY | 2023-06-26 19:45 | XMS_ITS | CCD ---
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 Role Phone Espinoza Ruiz Unavailable ANDREA GOLDEN Primary Care Physician Andrea Golden Unavailable Luma Chirinos Unavailable PABLO, DR CAMPOS Nixon Consulting Unavailable CHICO, DR WILKES Primary Care Unavailable KIKI CROWELL Attending Unavailable KIKI CROWELL Admitting Unavailable SOCRATES, KIKI Consulting Unavailable JESÚS, DR JEROME Winkler Consulting Unavailable HAY ., DR MONZON Attending Unavailable HAY ., DR MONZON Admitting Unavailable CHICO, DR WILKES Primary Care Unavailable HAY ., DR MONZON Consulting Unavailable OLEXAESPINOZA Consulting Unavailable HIGHLBASHIR BROWN Consulting Unavailable CHICO, DR WILKES Primary Care Unavailable LOLIS, BASHIR Ramos Attending Unavailable BASHIR DANIELLE Admitting Unavailable MASMARGARITO HOFFMANN Consulting Unavailable JESÚS, DR JEROME Winkler Consulting Unavailable CHICO, DR WILKES Primary Care Unavailable BASHIR DANIELLE Attending Unavailable BASHIR DANIELLE Admitting Unavailable BASHIR DANIELLE Consulting Unavailable LEILANIGILBERT Consulting Unavailable SYED PAZ Consulting Unavailable RILEY HURTADO Consulting Unavailable JESÚS, DR JEROME Winkler Consulting Unavailable CHICO, DR WILKES Primary Care Unavailable BASHIR DANIELLE Attending Unavailable BASHIR DANIELLE Admitting Unavailable BASHIR DANIELLE Consulting Unavailable CHICO, DR WILKES Consulting Unavailable ESPINOZA RUIZ Primary Care Unavailable CHICO, DR WILKES Attending [...] Primary Care Unavailable BASHIR DANIELLE Attending Unavailable HIGHLANDER, PETER D Admitting Unavailable BASHIR DANIELLE Consulting Unavailable DR JEROME ESPINOSA Consulting Unavailable DR ANDREA GOLDEN Primary Care Unavailable KIKI CROWELL Attending Unavailable KIKI CROWELL Admitting Unavailable KIKI CROWELL Consulting Unavailable Darin Shannan Unavailable Andrea Golden MD Primary Care Provider CHARITO VASQUEZ Attending Unavailable CHARITO VASQUEZ Attending Unavailable MADISON BURNS Attending Unavailable ANA VALIENTE Attending Unavailable CHARITO VASQUEZ Attending Unavailable Del Nettles Attending Unavailable Tho Mohamaalisha AJose Attending Unavailable Asuncion Buchanan Attending Unavailable Asuncion Buchanan Attending Unavailable Tho Mohamad AJose Admitting Unavailable Mosana Mohamad AJose Attending Unavailable Lucie Nettlesamaalisha AJose Referring Unavailable Allergies Allergy Classification Reported Allergen(s) Allergy Type Date of Onset Reaction(s) Facility (20 sources) Amoxicillin Drug Allergy 10-22-19 19 Rash, Unknown [facility] (20 sources) Sulfacetamide / Sulfur Drug Allergy Unknown [facility] Other (20 sources) idp dye Propensity to adverse reactions 06-21-19 24 Unknown, Unknown Reaction [facility] (3 sources) Sulfonamides (Antibiotic) Allergy to substance 10-22-19 19 Unknown Reaction [facility] (3 sources) wasp venom Allergy to substance 10-22-19 19 Anaphylaxis [facility] (3 sources) bee venom protein (honey bee) Allergy to substance 10-22-19 19 Anaphylaxis [facility] (4 sources) Iodinated Contrast Media Allergy to substance 12-08-19 08 Other, Shortness of breath, Unknown [facility] (6 sources) Bee/Wasp/Ant venom; Translations: [Bee Stings] Drug allergy Dyspnea (finding), Weal (disorder) [facility] [place] (6 sources) Contrast media; Translations: [contrast media (iodine-based)] Drug allergy Dyspnea (finding), Weal (disorder) [facility] (20 sources) Iodine; Translations: [iodine] Drug Allergy 01-15-20 23 Unknown (qualifier value), Unknown [facility] (6 sources) Penicillin; Translations: [penicillin] Drug Allergy Eruption of skin (disorder) [facility] [place] (6 sources) Sulfonamides (Antibiotic); Translations: [sulfa drugs] Drug allergy Angioedema (disorder) [facility] [place] (1 source) bee venom Drug allergy (disorder) [facility] (1 source) Iodine (And Iodine Containting Drugs) Drug allergy (disorder) 01-19-20 15 [facility] (3 sources) Penicillins Drug allergy (disorder) 06-21-19 24 Unknown Reaction [facility] (1 source) Sulfonamides (Antibiotic) Drug allergy (disorder) 03-18-18 56 [facility] (2 sources) Iodine / Sodium Iodide Drug Allergy Unknown [facility] Other (18 sources) Substance with penicillin structure and antibacterial mechanism of action (substance) Drug allergy Unknown [facility] Other (19 sources) Substance with sulfonamide structure and antibacterial mechanism of action (substance) Drug allergy 12-08-19 08 Unknown [facility] Other (2 sources) Allergies Reconciled Propensity to adverse reactions Unknown [facility] Other (2 sources) patient allergy list reviewed by nurse or physicia Propensity to adverse reactions 09-25-19 18 Comment:Done [facility] Other (1 source) Penicillin G Drug Allergy 01-15-20 23 Rash [facility] (2 sources) Sulfacetamide Drug Allergy 06-21-19 24 Unknown Reaction [facility] (2 sources) Sulfur Drug Allergy 06-21-19 24 Unknown Reaction [facility] Medications Current Medications Medication Drug Class(es) Dates [...] mg / caffeine 65 mg oral tablet (3 sources) Platelet Aggregation Inhibitor, Nonsteroidal Anti-inflammatory Drug, Central Nervous System Stimulant, Methylxanthine Start: 10-21-2018 Aspirin-Acetamin ophen-Caffeine (Pain-Off) 250-250-65 mg Tablet Active 2 TAB PO As Directed October 21, 2018 12:00am [id number] 200 actuat albuterol 0.09 mg/actuat metered dose inhaler (16 sources) beta2-Adrenergic Agonist Start: 09-02-2019 take 2 [...] tablet (20 sources) Bisphosphonate Start: 10-21-2018 take 70 mg by mouth every week Alendronate Active 70 MG PO every week October 21, 2018 12:00am take 1 tablet by mouth once carolyn y Alendronate Sodium 70 MG 1 tablet 30 minutes before the first food, beverage or medicine of the day with plain water Orally weekly for 90 days Active aspirin 770 mg / caffeine 60 mg / orphenadrine citrate 50 mg oral tablet (3 sources) Platelet Aggregation Inhibitor, Nonsteroidal Anti-inflammatory Drug, Muscle Relaxant, Central Nervous System Stimulant, Methylxanthine Start: 10-21-2018 take 0.5 tablet by mouth four times daily Lzrvjxspvqfz-Kiq-Xogumnrf Active 0.5 TAB PO Four times daily October 21, 2018 12:00am Astepro 205.5 MCG/SPRAY (1 source) Start: 02-18-2023 take 2 spray(s) nasal route twice daily Astepro 205.5 MCG/SPRAY 2 sprays in each nostril Nasally bid for 30 days Feb, Active atorvastatin 10 mg oral tablet (20 sources) HMG-CoA Reductase Inhibitor Start: 10-21-2018 take 10 mg by mouth once daily Atorvastatin Active 10 MG PO Daily October 21, 2018 12:00am azelastine hydrochloride 0.206 mg/actuat metered dose nasal spray (9 sources) Histamine-1 Receptor Antagonist Start: 02-18-2023 take 2 spray(s) nasal route twice daily Astepro 205.5 MCG/SPRAY 2 sprays in each nostril Nasally bid Feb, Active benazepril hydrochloride 10 mg oral tablet (15 sources) Angiotensin Converting Enzyme Inhibitor Start: 10-21-2018 take 10 mg by mouth once daily Benazepril Active 10 MG PO Daily October 21, 2018 12:00am betamethasone 1 mg/ml topical cream (20 sources) Corticosteroid Start: 03-13-2023 betamethasone valerate (Valisone) 0.1 % cream Indications: Lichen sclerosus et atrophicus Apply to affected area twice daily, Replace previous sent script 60 g 3 03/13/2023 Active Start: 10-21-2018 Betamethasone Valerate Active 1 APPLIC TOPICAL As Directed October 21, 2018 12:00am Betamethasone No t-Taking/PRN Betamethasone No t-Taking Betamethasone Ac tive Breo Ellipta 200 mcg-25 mcg/inh inhalation powder (1 source) Start: 09-02-2019 take 1 puff(s) by inhalation once daily Breo Ellipta 200 mcg-25 mcg/inh inhalation powder 1 puff(s), Inhalation, Daily, Refill(s) 0 Start Date: 09/02/19 Status: Ordered calcium carbonate 600 mg chewable tablet (7 sources) Start: 09-04-2019 take 1 tablet by [...] mouth in the morning. 0 05/18/2022 Active Codeine / guaiFENesin (17 sources) Opioid Agonist Start: 06-19-2023 take 1 mL by mouth every six hours Codeine-Guaifenes in Active 5 ML PO Every 6 hours 200 10 June 19, 2023 12:00am Start: 04-23-2023 take 10 mL by mouth [...] inject 0.3 mg by intramuscular injection once as needed EpiPen 2-Giovani 0.3 mg, IntraMuscular, Once, PRN Anaphylaxis, Refills(s) 0 Start Date: 09/04/19 Status: Ordered Start: 09-04-2019 inject 0.3 mg by int ramuscular injection once EpiPen 2-Giovani 0.3 mg, IntraMuscular, Once, Refills(s) 0 Start Date: 09/04/19 Status: Ordered EPINEPHrine 0.3 MG/0.3ML Injection Active EpiPen 2-Giovani 0.3 MG/0.3ML injection syringe as directed Injection 0 Active estradiol 0.1 mg/ml vaginal cream (12 sources) Estrogen Start: 02-20-2023 estradiol (Est race) 0.1 MG/GM vaginal cream See Instructions, 42.5 gm, Refill(s) 0, apply pea sized amount to urethra 2x/wk, [facility], 158, cm, 02/20/23 8:48:00 EST, Height/Length Dosing, 68.5, kg, 02/20/23 8:48:00 EST, Weight Dosing 0 02/20/2023 Active Start: 02-20-2023 estradiol 0.1 mg/g Vag Crm See Instructions, 42.5 gm, Refill(s) 0, apply pea sized amount to urethra 2x/wk, [facility], 158, cm, 02/20/23 8:48:00 EST, Height/Length Dosing, 68.5, kg, 02/20/23 8:48:00 EST, Weight Dosing Start Date: 02/20/23 Status: Ordered Start: 04-13-2021 estradiol 0.1 mg/g vaginal cream See Instructions, Apply pea sized amount to external urethral 3 times a week for 2 weeks (at bedtime), then twice a week after for maintenance, # 42.5 gm, Refills(s) 1, [facility]acy: [id number], 158, cm, 04/13/21 9:47:00 EST, Height/Length Do... Start Date: 04/13/21 Status: Ordered Start: 10-21-2018 End: 10-21-2018 Estradiol (Yuvafem) 10 mcg T ablet Active 10 MCG TABLET Twice a Week October 21, 2018 12:00am famotidine 20 mg oral tablet (20 sources) Histamine-2 Receptor Antagonist Start: 02-20-2023 take 1 mg by mouth twice daily famotidine 20 mg Tab mg tab(s), Oral, BID, Refills(s) 0, Control of stomach acid Start Date: 02/20/23 Status: Ordered take 1 [...] Start: 09-02-2019 fluticasone 0. 05 mg/inh Nasal Flippin 2 spray(s), Nasal, Daily, Refill(s) 0 Start Date: 09/02/19 Status: Ordered Start: 10-21-2018 End: 05-23-2023 Fluticasone Propionate Activ e 2 SPRAY INTRANASAL Daily May 23, 2023 5:44pm take 2 spray(s) nasa l route once [...] Inhalation daily Active fluticasone 0.05 mg/inh Nasal Flippin (4 sources) Start: 09-02-2019 fluticasone 0.05 mg/inh Nasal Flippin 2 spray(s), Nasal, Daily, Refill(s) 0 Start Date: 09/02/19 Status: Ordered levoFLOXacin 750 mg oral tablet (5 sources) Quinolone Antimicrobial Start: 04-16-2023 take 1 tablet by mouth every twenty-four hours levoFLOXacin 750 MG 1 tablet Orally Once a day for 5 days Mar, Active 12 hr loratadine 5 mg / pseudoephedrine sulfate 120 mg extended release oral tablet (13 sources) alpha-Adrenergic Agonist Start: 04-25-2022 take 5-120 [...] Daily, # 30 tab(s), Refills(s) 6, [id number], 158, cm, 12/01/21 9:55:00 EDT, Height/Length Dosing, 68, kg, 12/01/21 9:55:00 EDT, Weight Dosing Start Date: 12/01/21 Status: Ordered nabumetone 750 mg oral tablet (3 sources) Nonsteroidal Anti-inflammatory Drug Start: 10-21-2018 take 1500 mg by mouth once daily Nabumetone Active 1500 MG PO Daily October 21, 2018 12:00am omeprazole 40 mg delayed release oral capsule (20 sources) Proton Pump Inhibitor Start: 10-21-2018 take 40 mg by mouth once daily Omeprazole Active 40 MG PO Daily October 21, 2018 12:00am pain off aspirin (1 source) Start: 04-13-2021 pain off aspirin pain off aspirin Start Date: 04/13/21 Status: Ordered pantoprazole 40 mg delayed release oral tablet (20 sources) Proton Pump Inhibitor Start: 12-11-2019 take 1 tablet by mouth once daily Pantoprazole [address] Tab 40 mg = 1 tab(s), Oral, Daily, # 90 tab(s), Refills(s) 1, Pharmacy: [facility] [facility], 154.9, cm, 12/11/19 9:26:00 EDT, Height/Length Dosing, 70.2, kg, 12/11/19 9:26:00 EDT, Weight Dosing Start Date: 12/11/19 Status: Ordered polysaccharide iron complex 150 mg oral capsule (9 sources) Start: 05-22-2023 take 150 mg by mouth every other day Ferrex-150 150 mg, Oral, Every other day, Refills(s) 0, Prophylaxis Start Date: 05/22/23 Status: Ordered Start: 03-08-2023 take 1 capsule by cox monett every other day Ferrex 150 150 MG 1 capsule Orally qod Feb, Active ProAir HFA 108 (90 Base) MCG/ACT (20 sources) take 2 puff(s) by in halation [...] Active ProAir HFA 90 mcg/inh inhalation aerosol (4 sources) Start: 09-02-2019 take 2 puff(s) by inhalation every four hours ProAir HFA 90 mcg/inh inhalation aerosol 2 puff(s), Inhalation, q4hr Shortness of breath or wheezing, Refill(s) 0 Start Date: 09/02/19 Status: Ordered psyllium 520 mg oral capsule (3 sources) Start: 10-21-2018 Psyllium Husk (Metamucil) 0.52 gram Capsule Active 1 CAP PO Twice daily October 21, 2018 12:00am Trelegy Ellipta (3 sources) Start: 05-14-2023 Trelegy Ellipt a Inhalation, Daily, Refills(s) 0, Shortness of breath or wheezing Start Date: 05/14/23 Status: Ordered Start: 05-14-2023 Trelegy Ellipt a Inhalation, Daily, [...] Inhalation Once a day Feb, Active Start: 12-04-2023 take 1 puff(s) by in halation once daily Trelegy Ellipta 200-62.5-25 MCG/ACT 1 puff Inhalation Once a day for 30 days Feb, Active Vitamin D3 (3 sources) Start: 05-14-2023 Vitamin D3 Ora l, Daily, Refills(s) 0, Prophylaxis Start Date: 05/14/23 Status: Ordered Start: 05-14-2023 Vitamin D3 Ref ills(s) 0 Start Date: 05/14/23 Status: Ordered Completed/Discontinued Medications Medication Drug Class(es) Dates Sig (Normalized) Sig (Original) amLODIPine 5 mg oral tablet (20 sources) Dihydropyridine Calcium Channel Bebe Start: 02-20-2023 End: 05-23-2023 take 5 mg by mouth once daily Amlodipine Discontinued 5 MG PO Daily May 23, 2023 1:00am May 23, 2023 5:46pm azithromycin 250 mg oral tablet (20 sources) [...] microgram = 1 tab(s), Oral, Daily, Refills(s) 0, Thyroid Start Date: 09/04/19 Status: Ordered Start: 10-21-2018 [...] affected area Externally Twice a day Not-Taking/PRN montelukast 10 mg oral tablet (20 sources) Leukotriene Receptor Antagonist Start: 05-22-19 End: 05-23-19 take 10 mg by mouth once daily Montelukast Discontinued 10 MG PO Daily May 23, 2023 1:00am May 23, 2023 5:46pm Start: 12-26-2022 take 1 tablet by grzegorz th every twenty-four hours Montelukast Sodium 10 MG 1 tablet Orally Once a day Dec, Active nitrofurantoin, macrocrystals 25 mg / nitrofurantoin, monohydrate 75 mg oral capsule (5 sources) Nitrofuran Antibacterial Start: 02-20-2023 Macrobid 100 mg Cap 100 mg = 1 cap(s), Oral, As Directed, take 1 tablet within 1 hour before or after intercourse to prevent infection., # 30 cap(s), Refills(s) 3, Pharmacy: [facility], 158, cm, 02/20/23 8:48:00 EST, Height/Length Dosing, 68.5, kg, 02/20/23 8:48:00 EST, Weight Dosing Start Date: 02/20/23 Status: Ordered Start: 12-01-2021 Macrobid 100 m g Cap 100 mg = 1 cap(s), Oral, As Directed, take 1 tablet within 1 hour after intercourse to prevent infection., # 30 cap(s), Refills(s) 1, [facility]: [id number], 158, cm, 12/01/21 9:55:00 EDT, Height/Length Dosing, [...] Problem Date Documented Date Episodic/Chronic Abdominal pain (9 sources) Epigastric pain; Translations: [Epigastric pain] 12-11-2019 [...] unspecified, unspecified status] Onset: 09-28-19 16 Cataract (7 sources) Bilateral cataracts; Translations: [Artificial lens present] [...] Chronic Deficiency and other anemia (1 source) Anemia due to chronic blood loss; Translations: [Iron deficiency anemia secondary to blood loss (chronic)] Onset: 05-30-19 Chronic Deficiency and other anemia (1 source) Anemia, unspecified Episodic Deficiency and other anemia (5 sources) Iron deficiency anemia secondary to inadequate dietary iron intake; Translations: [Other iron deficiency anemias] Episodic Deficiency and other anemia (2 sources) Other iron deficiency anemias Episodic Deficiency and other anemia (1 source) Iron deficiency anemia; Translations: [Iron deficiency anemia, unspecified] Onset: 05-14-19 Episodic Deficiency and other anemia (1 source) Anemia; Translations: [Anemia, unspecified] Onset: 05-29-19 Episodic Disorders of lipid metabolism (20 sources) Hyperlipidemia; Translations: [Pure hypercholesterolemia, unspecified] Onset: 09-25-19 18 08-31-2019 Chronic Disorders of teeth and jaw (2 sources) Periapical abscess without sinus tract; Translations: [Periapical abscess without sinus] Episodic Diverticulosis and diverticulitis (2 sources) Diverticula of intestine; Translations: [Diverticulosis of large intestine without perforation or abscess without bleeding] Onset: 05-14-19 Chronic Esophageal disorders (20 sources) Gastroesophageal reflux [...] encounter for closed fracture] Onset: 03-13-20 Episodic Gastritis and duodenitis (2 sources) Gastritis; Translations: [Other gastritis without bleeding] Onset: 05-14-19 Episodic Gastroduodenal ulcer (except hemorrhage) (15 sources) H/O: gastric ulcer; Translations: [H/O: peptic ulcer] Onset: 12-11-19 14 08-31-2019 Episodic Genitourinary symptoms and ill-defined conditions (7 sources) Mixed incontinence; Translations: [Incontinence] Onset: 12-02-19 Chronic Genitourinary symptoms and ill-defined conditions (15 sources) Sensation as if bladder still full; Translations: [Feeling of incomplete bladder emptying] Onset: 12-02-19 22 Episodic Headache; including migraine (20 sources) Tension-type headache; Translations: [Tension-type headache, unspecified, not intractable] Onset: 01-12-20 16 08-31-2019 Chronic Hemorrhoids (1 source) Hemorrhoids; Translations: [Other hemorrhoids] Onset: 05-30-19 Episodic Inflammation; infection of eye (except that [...] Onset: 04-09-19 Chronic Other aftercare (1 source) emt intermediate (current) use of aspirin; Translations: [ALF CURRENT USE OF ASPIRIN] Onset: 04-09-19 Episodic Other aftercare (3 sources) 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; Translations: [OTH ALF CURRENT DRUG THERAPY] Onset: 03-13-20 Episodic Other aftercare (1 source) Long-term current use of drug therapy; Translations: [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] Episodic Other and unspecified benign neoplasm (5 sources) History of polyp of colon 09-04-2019 Episod ic Other bone disease and musculoskeletal deformities (5 sources) Osteopenia 08-31-2019 Episodic Other bone disease [...] Episodic Other diseases of bladder and urethra (7 sources) Urethral caruncle; Translations: [Urethral caruncle] Onset: 12-02-19 Episodic Other diseases of kidney and ureters (1 source) Vesicoureteric reflux; Translations: [Vesicoureteral-reflux, unspecified] Onset: 05-14-19 Episodic Other disorders of stomach and duodenum (5 sources) 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 Other gastrointestinal disorders (2 sources) Irritable bowel syndrome characterized by constipation; Translations: [Irritable bowel syndrome with constipation] Chronic Other gastrointestinal disorders (5 sources) Abdominal bloating 12-11-2019 Episodic Other gastrointestinal disorders (1 source) Oropharyngeal dysphagia; Translations: [Dysphagia, oropharyngeal phase] Episodic Other gastrointestinal disorders (1 source) Dysphagia, oropharyngeal phase; Translations: [Dysphagia, oropharyngeal phase] Episodic Other gastrointestinal disorders (2 sources) H/O: gastrointestinal disease; Translations: [Personal history of other diseases of the digestive system] Onset: 05-14-19 Episodic Other inflammatory condition of skin (1 [...] Translations: [Other seasonal allergic rhinitis] Onset: 06-12-19 Chronic Other upper respiratory disease (11 sources) [...] [Autoimmune disease, not elsewhere classified] Onset: 09-25-19 Chronic Thyroid disorders (20 sources) Autoimmune hypothyroidism; 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] Onset: 01-30-2008-31-2019 Chronic Unclassified (5 sources) Asymptomatic microscopic hematuria 12-01-2021 Unclassified (5 sources) Finding of sensation of bladder 04-13-2021 [...] [Autoimmune disease, not elsewhere classified] Onset: 09-25-19 Unclassified (1 source) Unspecified urticaria; Translations: [Unspecified urticaria] Unclassified (1 source) Other specified disorders of rotator cuff syndrome of shoulder and allied disorders; Translations: [Other specified disorders of rotator cuff syndrome of shoulder and allied disorders] Onset: 04-11-19 Unclassified (1 source) Long-term (current) use of other medications; Translations: [Long-term (current) use of other medications] Onset: 07-10-20 18 Unclassified (1 source) Bacterial infection, unspecified, in conditions classified elsewhere and of unspecified site; Translations: [Bacterial infection, unspecified, in conditions classified elsewhere and of unspecified site] Onset: 08-08-19 16 Unclassified (1 source) Pain in joint, ankle and foot; Translations: [Pain in joint, ankle and foot] Onset: 11-19-19 16 Urinary tract infections (11 sources) Urinary tract infectious disease; Translations: [Urinary [...] Test Name Value Interpretation Reference Range Facility Gastroenterology Office/Clin ic Noteon 05-30-2023 Gastroenterology Office/Clinic Note Chief Complaint follow up to EGD/colon HPI Staff This is a 72 year old female who presents today for a follow up to EGD and Colonoscopy. Last visit w/ Dr Nettles Assessment/Plan 1. Iron deficiency anemia, unspecified (D50.9: Iron deficiency anemia, unspecified) 2. 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 GERD (gastroesophageal reflux disease) (K21.9: Gastro-esophageal reflux disease without esophagitis) 4. H/O gastric ulcer (Z87.19: Personal history of other diseases of the digestive system) 5. History of gastric ulcer (Z87.11: Personal history of peptic ulcer disease) 6. Diverticulosis of large intestine without perforation or abscess without bleeding (K57.30: Diverticulosis of large intestine without perforation or abscess without bleeding) 7. Reflux of urine (N13.70: Vesicoureteral-reflux, unspecified) Agree with iron supplementations and the infusion Will upper endoscopy with small bowel biopsies to evaluate anemia Schedule colonoscopy with TI evaluation to evaluate anemia Schedule CT scan of the abdomen to evaluate left lower quadrant abdominal pain Colon 05/22/23 Findings Diverticulosis in the left colon Internal hemorrhoids; could not do retroflexion since the rectum is small Normal terminal ileum Repeat colonoscopy: 10 years. EGD 05/22/23 Findings Z-line was irregular at 34 cm Mild hiatal hernia Bilious fluids in the fundus Mild patchy erythema of the stomach consistent with bile reflux Widely open pyloric channel Duodenal stricture in the first segment of the duodenum; dilated while advancing the scope Random biopsies obtained from the duodenum Final Diagnosis (Verified) DUODENUM, BIOPSY: ? DUODENAL MUCOSA WITH NO SIGNIFICANT PATHOLOGIC CHANGES. CT 05/20/23 Impression 1. No acute abdominal or pelvic abnormality 2. Diverticulosis. 3. Other more incidental findings, as described above. Review of Systems PHQ Score Initial Depression Screen Score: 0 SCORE Physical Exam Vitals & Measurements HR: 80(Peripheral) RR: 16 BP: 126/78 HT: 62 in HT: 158 cm WT: 70.2 kg WT: 154.44 lb BMI: 28.12 Assessment/Plan 1. Anemia (D64.9: Anemia, unspecified) Ordered: GI Tract Imaging Capsule Endoscopy (In Office Procedure) 2. Bile reflux gastritis (K29.60: Other gastritis without bleeding) Ordered: GI Tract Imaging Capsule Endoscopy (In Office Procedure) 3. GERD (gastroesophageal reflux disease) (K21.9: Gastro-esophageal reflux disease without esophagitis) Ordered: GI Tract Imaging Capsule Endoscopy (In Office Procedure) 4. H/O gastric ulcer (Z87.19: Personal history of other diseases of the digestive system) Ordered: GI Tract Imaging Capsule Endoscopy (In Office Procedure) 5. Diverticulosis (K57.90: Diverticulosis of intestine, part unspecified, without perforation or abscess without bleeding) Ordered: GI Tract Imaging Capsule Endoscopy (In Office Procedure) 6. Iron deficiency anemia due to chronic blood loss (D50.0: Iron deficiency anemia secondary to blood loss (chronic)) 7. Internal hemorrhoids (K64.8: Other hemorrhoids) Follow-up No qualifying data available Problem List/Past Medical History Ongoing Abdominal bloating Acute allergic rhinitis due to pollen Arthritis Asthma Asymptomatic microscopic hematuria Benign essential hypertension Bilateral cataracts Cervical spondylosis Chronic tension headache Duodenal stricture Epigastric pain GERD (gastroesophageal reflux disease) Graves disease H/O gastric ulcer History of gastric ulcer Hyperlipidemia Hypertension Hypothyroidism, acquired, autoimmune Incomplete bladder emptying Lumbar spondylosis Microscopic hematuria Migraine Mild persistent asthma Mixed incontinence Nocturia Osteopenia of lumbar spine Personal history of colonic polyps Recurrent UTI Urethral caruncle Urinary tract infection Historical Reflux of urine Procedure/Surgical History Colonoscopy (05/22/2023), Esophagogastroduodenoscop y (05/22/2023), Colonoscopy (09/07/2019), EGD - Esophagogastroduodenoscop y (09/07/2019), Colonoscopy (01/16/2015), EGD - Esophagogastroduodenoscop y (01/16/2015), EGD - Esophagogastroduodenoscop y (08/17/2011), EGD - Esophagogastroduodenoscop y (05/17/2011), Laparoscopic cholecystectomy (06/16/2010), Colonoscopy (01/16/2010), Cataracts, section, Foot, Rotator cuff repair, Tubal ligation. Medications amLODIPine 5 mg Tab, 5 mg= 1 tab(s), Oral, Daily atorvastatin 10 mg Tab, 10 mg= 1 tab(s), Oral, Daily EpiPen 2-Giovani, 0.3 mg, IntraMuscular, Once, PRN, Not taking estradiol 0.1 mg/g Vag Crm, See Instructions famotidine 20 mg Tab, Oral, BID Ferrex-150, 150 mg, Oral, Every other day fluticasone 0.05 mg/inh Nasal Flippin, 2 spray(s), Nasal, Daily Fosamax 70 mg Tab, 70 mg= 1 tab(s), Oral, qWeek levothyroxine 88 mcg (0.088 mg) Tab, 88 mcg= 1 tab(s), Oral, Daily Macrobid 100 mg Cap, 100 mg= 1 cap(s), Oral, As Directed, 3 refills, Not (more content not included)... Normal [facility] Comment on above: Result Comment: Elec tronically Signed By: Tho VILLEGAS, Del Duckworth\.br\Date and Time Signed: 05/30/23 08:31 EDT Other Comment: error Gastroenterology Office/Clinic Note Chief Complaint follow up to EGD/colon HPI Staff This is a 72 year old female who presents today for a follow up to EGD and Colonoscopy. Last visit w/ Dr Nettles Assessment/Plan 1. Iron deficiency anemia, unspecified (D50.9: Iron deficiency anemia, unspecified) 2. 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 GERD (gastroesophageal reflux disease) (K21.9: Gastro-esophageal reflux disease without esophagitis) 4. H/O gastric ulcer (Z87.19: Personal history of other diseases of the digestive system) 5. History of gastric ulcer (Z87.11: Personal history of peptic ulcer disease) 6. Diverticulosis of large intestine without perforation or abscess without bleeding (K57.30: Diverticulosis of large intestine without perforation or abscess without bleeding) 7. Reflux of urine (N13.70: Vesicoureteral-reflux, unspecified) Agree with iron supplementations and the infusion Will upper endoscopy with small bowel biopsies to evaluate anemia Schedule colonoscopy with TI evaluation to evaluate anemia Schedule CT scan of the abdomen to evaluate left lower quadrant abdominal pain Colon 05/22/23 Findings Diverticulosis in the left colon Internal hemorrhoids; could not do retroflexion since the rectum is small Normal terminal ileum Repeat colonoscopy: 10 years. EGD 05/22/23 Findings Z-line was irregular at 34 cm Mild hiatal hernia Bilious fluids in the fundus Mild patchy erythema of the stomach consistent with bile reflux Widely open pyloric channel Duodenal stricture in the first segment of the duodenum; dilated while advancing the scope Random biopsies obtained from the duodenum Final Diagnosis (Verified) DUODENUM, BIOPSY: ? DUODENAL MUCOSA WITH NO SIGNIFICANT PATHOLOGIC CHANGES. CT 05/20/23 Impression 1. No acute abdominal or pelvic abnormality 2. Diverticulosis. 3. Other more incidental findings, as described above. History of Present Illness pt is doing well still with fatigue no GI symptoms last IV infusion was 3 weeks ago I have reviewed HPI staff note, most recent labs and imaging, more than 30 minutes spent reviewing the chart, during encounter, placing orders and counseling the patient. Review of Systems PHQ Score Initial Depression Screen Score: 0 SCORE All systems reviewed, negative except as mentioned above Physical Exam Vitals & Measurements HR: 80(Peripheral) RR: 16 BP: 126/78 HT: 62 in HT: 158 cm WT: 70.2 kg WT: 154.44 lb BMI: 28.12 General: alert, no acute distress HEENT: atraumatic normocephalic Cardiovascular: regular rate and rhythm, normal peripheral perfusion Respiratory: Lungs CTA, respirations non labored Extremities: no deformity, no trauma Abdomen: Benign, soft, nontender nondistended Assessment/Plan 1. Anemia (D64.9: Anemia, unspecified) Ordered: GI Tract Imaging Capsule Endoscopy (In Office Procedure) 2. Bile reflux gastritis (K29.60: Other gastritis without bleeding) Ordered: GI Tract Imaging Capsule Endoscopy (In Office Procedure) 3. GERD (gastroesophageal reflux disease) (K21.9: Gastro-esophageal reflux disease without esophagitis) Ordered: GI Tract Imaging Capsule Endoscopy (In Office Procedure) 4. H/O gastric ulcer (Z87.19: Personal history of other diseases of the digestive system) Ordered: GI Tract Imaging Capsule Endoscopy (In Office Procedure) 5. Diverticulosis (K57.90: Diverticulosis of intestine, part unspecified, without perforation or abscess without bleeding) Ordered: GI Tract Imaging Capsule Endoscopy (In Office Procedure) 6. Iron deficiency anemia due to chronic blood loss (D50.0: Iron deficiency anemia secondary to blood loss (chronic)) 7. Internal hemorrhoids (K64.8: Other hemorrhoids) Continue iron infusion Plan to monitor hemoglobin Continue PPI Ordered capsule endoscopy Capsule endoscopy is negative, will refer to hematology for further workup for iron deficiency anemia Internal hemorrhoids: Not currently symptomatic but will treat with creams and refer to surgery if needed Follow-up No qualifying data available Problem List/Past Medical History Ongoing Abdominal bloating Acute allergic rhinitis due to pollen Arthritis Asthma Asymptomatic microscopic hematuria Benign essential hypertension Bilateral cataracts Cervical spondylosis Chronic tension headache Duodenal stricture Epigastric pain GERD (gastroesophageal reflux disease) Graves disease H/O gastric ulcer History of gastric ulcer Hyperlipidemia Hypertension Hypothyroidism, acquired, autoimmune Incomplete bladder emptying Lumbar spondylosis Microscopic hematuria Migraine Mild persistent asthma Mixed incontinence Nocturia Osteopenia of lumbar spine Personal history of colonic polyps Recurrent UTI Urethral caruncle Urinary tract infection Historical Reflux of urine Procedure/Surgical History Colonoscopy (05/22/2023), Esophagogastroduodenoscop y (05/22/2023), Co (more content not included)... Normal [facility] Comment on above: Result Comment: Elec tronically Signed By: Del Nettles MD\.br\Date and Time Signed: 05/30/23 08:34 EDT IntraOperative Documentson 0 05-29-2023 IntraOperative Documents [id number] Normal [facility] Main OR Intraoperative Recor don 05-24-2023 Main OR Intraoperative Record IntraOp Document Type FT Summary Primary Physician: Del Nettles MD Finalized Date/Time: 05/24/23 14:03:51 Pt. Name: MUNIRA CHESTER/Sex: 1950 Female Med Rec #: [id number] Physician: Del Nettles MD Financial #: [id number] Pt. Type: O Room/Bed: / Admit/Disch: 05/22/23 06:55:50 - 05/22/23 23:59:59 Institution: Case Times FT Entry 1 Patient Times In Room 05/22/23 08:12:00 Out Room 05/22/23 08:48:00 Procedure Times Start 05/22/23 08:17:00 Stop 05/22/23 08:45:00 Anesthesia Times Start 05/22/23 08:12:00 Stop 05/22/23 08:48:00 Time at [facility] 05/22/23 08:32:00 Last Modified By: Carrie KILLIAN, Neli Barrera 05/22/23 08:48:46 General Comments: 08 EGD completed. /,RN 0829 Colonoscopy started. 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 Valderrama supervising case Last Modified By: Carrie RN, Neli Butler RN, Neli Butler RN, Neli Barrera 05/22/23 08:48:47 F 05/22/23 08:48:47 F 05/22/23 08:48:47 Entry 4 Entry 5 Case Attendee Romero Marks MD, Del Duckworth Role Performed Staff - Other Surgeon - Primary Time In 05/22/23 08:12:00 05/22/23 08:12:00 Time Out 05/22/23 08:48:00 05/22/23 08:48:00 Procedure EGD AND COLONOSCOPY(.) EGD AND COLONOSCOPY(.) Comments help in room Last Modified By: Carrie RN, Neli Butler RN, Neli Barrera 05/22/23 08:48:47 F 05/22/23 08:48:47 Perioperative Protocols FT Pre-Care Text: Implements protective measures prior to operative or invasive procedure, confirms identity before the operative or invasive procedure, verifies operative procedure, surgical site, and laterality Entry 1 Procedure(s) EGD AND COLONOSCOPY(.) Patient Identity Birthday, ID Band Verified (select at Check, Patient least 2): Participation Consents / H and P Anesthesia Consent, Operative Site N/A Verified HandP, Surgery/Procedure Marking Verified Consent Surgical Site No Laterality Verified n/a Verified Procedure Verified Yes Correct Patient Yes Position Verified Availability Equipment, Medication Prep Dry n/a Verified (If Applicable) PreOp Antibiotic No Time Out Samara Goldstein CRNA, Given Participants Neli Butler RN, Miles, Kirstyn K, Sparks, Micala E, Tho VILLEGAS, Del Duckworth Time Out Complete 05/22/23 08:13:00 Outcomes Met? Yes Last Modified By: Neli Butler RN 05/22/23 08:16:14 Post-Care Text: The patient is free from signs and symptoms of injury caused by extraneous objects Allergy Information FT Pre-Care Text: Verifies allergies Entry 1 Allergies Reviewed? Yes Allergies Reviewed Self/Patient With Outcomes Met? Yes Last Modified By: Neli Butler RN 05/22/23 08:16:41 Post-Care Text: The patient received appropriate medication(s) safely administered during the perioperative period Surgical Procedures FT Entry 1 Procedure Description Procedure EGD AND COLONOSCOPY Modifiers . Surgeon Description EGD with duodenal biopsy. Colonoscopy Primary Procedure Yes Primary Surgeon Tho VILLEGAS, Del Duckworth Start 05/22/23 08:17:00 Stop 05/22/23 08:45:00 Anesthesia Type General Surgical Service Gastroenterology Wound Class 2 - Clean-Contaminated Last Modified By: Neli Butler RN 05/22/23 08:46:00 General Case Data FT Pre-Care Text: Classifies surgical wound, implements aseptic technique, initiates traffic control Entry 1 Case Information OR ENDO 2 FT Case Level Level 2 Wound Class 2 - Clean-Contaminated Specialty Gastroenterology ASA Class 2 Preop Diagnosis Diverticulosis of large Postop Same As Preop No intestine without perforation or abscess without bleeding, unspecified [place],, bile reflux gastritis, GERD, history of gastric ulcer Postop Diagnosis EGD- small hiatal Outcomes Met? Yes hernia, duodenal stricture. Colonoscopy- diverticulosis, internal hemorrhoids Last Modified By: Neli Butler RN 05/22/23 08:46:22 Post-Care Text: The patient is free from signs and symptoms of infection Skin Assessment (Pre Procedure) FT Pre-Care Text: Implements protective measures to prevent skin/ tissue injury due to thermal or mechanical sources Evaluates for signs and symptoms of physical injury to skin and tissue Entry 1 Skin Integrity Intact, [place], Warm, and Skin Abnormality No Dry Outcomes Met? Yes Last Modified By: Carrie KILLIAN, Neli F 05/22/23 08:18:09 Post-Care Text: The patient is free from signs and symptoms of injury caused by extraneous objects Patien (more content not included)... Normal [facility] Progress Note-Physicianon Progress Note-Physician Patient: MUNIRA DURAN Age: 72 years Sex: Female : 1950 Associated Diagnoses: None Author: Jay Jay Valderrama Jr, DO Preoperative Information Anesthesia Preop Info: Time patient last ate or drank 05/22/2023 00:00:00. Anesthesia history: Patient history: None. Family history+: None. Informed consent: Signed by patient. Re-evaluation prior to induction: Initial evaluation reviewed: No significant change. Review of Systems Eye: Negative except as documented in history of present illness. Ear/Nose/Mouth/Throat: Negative except as documented in history of present illness. Respiratory: Negative except as documented in history of present illness. Cardiovascular: Negative except as documented in history of present illness. Musculoskeletal: Negative except as documented in history of present illness. Neurologic: Negative except as documented in history of present illness. Health Status Allergies: Allergic Reactions (Selected) Severity Not Documented Bee Stings- Hives and sob - shortness of breath. Contrast media (iodine-based)- Sob - shortness of breath and hives. Penicillin- Rash. Sulfa drugs- Angio-oedema. Problem list: All Problems Urinary tract infection / SNOMED CT 545821015 / Confirmed Urethral caruncle / SNOMED CT 90151020 / Confirmed Duodenal stricture / SNOMED CT 61303262 / Confirmed Recurrent UTI / SNOMED CT 228557037 / Confirmed Osteopenia of lumbar spine / SNOMED CT 462192452 / Confirmed Nocturia / SNOMED CT 388988220 / Confirmed Mild persistent asthma / SNOMED CT 5578464695 / Confirmed Migraine / SNOMED CT 30457581 / Confirmed Microscopic hematuria / SNOMED CT 812127536 / Confirmed Lumbar spondylosis / SNOMED CT 906700910 / Confirmed Mixed incontinence / SNOMED CT 35265033 / Confirmed Hypertension / SNOMED CT 9489853143 / Confirmed Hyperlipidemia / SNOMED CT 85391479 / Confirmed Personal history of colonic polyps / SNOMED CT 2298754842 / Confirmed History of gastric ulcer / SNOMED CT 833216932 / Confirmed H/O gastric ulcer / SNOMED CT 635633026 / Confirmed Graves disease / SNOMED CT 247895358 / Confirmed GERD (gastroesophageal reflux disease) / SNOMED CT 426292743 / Confirmed Incomplete bladder emptying / SNOMED CT 598939082 / Confirmed Epigastric pain / SNOMED CT 470690426 / Confirmed Chronic tension headache / SNOMED CT 525081913 / Confirmed Cervical spondylosis / SNOMED CT 1997178319 / Confirmed Bilateral cataracts / SNOMED CT 294834905 / Confirmed Benign essential hypertension / SNOMED CT 2907616 / Confirmed Hypothyroidism, acquired, autoimmune / SNOMED CT 059856481 / Confirmed Asymptomatic microscopic hematuria / SNOMED CT 0750228762 / Confirmed Asthma / SNOMED CT 573536347 / Confirmed Arthritis / SNOMED CT 1680321 / Confirmed Acute allergic rhinitis due to pollen / SNOMED CT 97333031 / Confirmed Abdominal bloating / SNOMED CT 017030201 / Confirmed Resolved: Reflux of urine / SNOMED CT 8912687171 Histories Procedure history: Colonoscopy ([id number]) on 09/07/2019 at 69 Years. EGD - Esophagogastroduodenoscop y (1344122134) on 09/07/2019 at 69 Years. EGD - Esophagogastroduodenoscop y (2876938205) on 01/16/2015 at 64 Years. Colonoscopy ([id number]) on 01/16/2015 at 64 Years. Comments: 08/31/2019 16:19 EDT - Tonie Barragan LPN normal EGD - Esophagogastroduodenoscop y (2103087102) on 08/17/2011 at 61 Years. EGD - Esophagogastroduodenoscop y (7256549098) on 05/17/2011 at 60 Years. Laparoscopic cholecystectomy (60080280) on 06/16/2010 at 59 Years. Colonoscopy ([id number]) on 01/16/2010 at 59 Years. section (66351299). Rotator cuff repair (465572877). Tubal ligation (595548769). Cataracts (5398782790). Foot (93902197). Social History Social & Psychosocial Habits Alcohol 05/14/2023 Risk Assessment: Denies Alcohol Use Substance Abuse 05/14/2023 Risk Assessment: Denies Substance Abuse Tobacco 05/14/2023 Tobacco Use: Never (less than 100 in l Smokeless tobacco use: Never Concerns about tobacco use in household: No . Physical Examination Airway: Mallampati classification: II (soft palate, fauces, uvula visible). Respiratory: adequate air exchange. Cardiovascular: Regular rhythm. Plan [place] [employer] (ASA) physical status classification: Class II. Anesthetic Preoperative Plan: Anesthesia General. [facility] Comment on above: Result Comment: Elec tronically Signed By: Jay Jay Valderrama Jr, DO\.br\Date and Time Signed: 05/24/23 13:56 EST Progress Note-Physician Patient: MUNIRA DURAN Age: 72 years Sex: Female : 1950 Associated Diagnoses: None Author: Jay Jay Valderrama Jr, DO Postoperative Information Postoperative disposition: Postoperative disposition: To PACU. Optimetrix number: Optimetrix number [id number]. Anesthetic utilized: General. Health Status Allergies: Allergic Reactions (Selected) Severity Not Documented Bee Stings- Hives and sob - shortness of breath. Contrast media (iodine-based)- Sob - shortness of breath and hives. Penicillin- Rash. Sulfa drugs- Angio-oedema. Physical Examination Vital Signs 05/22/2023 9:15 EST Heart Rate Monitored 62 bpm Respiratory Rate Monitored 19 br/min Systolic Blood Pressure 112 mmHg Diastolic Blood Pressure 75 mmHg Mean Arterial Pressure, Cuff 87 mmHg SpO2 96 % 05/22/2023 9:05 EST Heart Rate Monitored 65 bpm Respiratory Rate Monitored 10 br/min Systolic Blood Pressure 111 mmHg Diastolic Blood Pressure 71 mmHg Mean Arterial Pressure, Cuff 84 mmHg SpO2 95 % 05/22/2023 9:00 EST Heart Rate Monitored 66 bpm Respiratory Rate Monitored 15 br/min Systolic Blood Pressure 113 mmHg Diastolic Blood Pressure 70 mmHg Mean Arterial Pressure, Cuff 84 mmHg SpO2 99 % 05/22/2023 8:55 EST Heart Rate Monitored 68 bpm Respiratory Rate Monitored 17 br/min Systolic Blood Pressure 117 mmHg Diastolic Blood Pressure 70 mmHg Mean Arterial Pressure, Cuff 86 mmHg SpO2 97 % 05/22/2023 8:50 EST Temperature Temporal Artery 36.4 DegC Heart Rate Monitored 67 bpm Respiratory Rate Monitored 19 br/min Systolic Blood Pressure 106 mmHg Diastolic Blood Pressure 58 mmHg LOW Mean Arterial Pressure, Cuff 74 mmHg SpO2 99 % Pain Assessment: Controlled. General: Awake, Alert, Appropriate. Respiratory: Adequate air exchange. Cardiovascular: Stable, Normal peripheral perfusion. Neurological: Normal sensory function, Normal motor function. Assessment Anesthetic outcome No anesthetic complications noted. Adequate pain relief. able to void without difficulty, able to ambulate with assist, tolerating PO intake, no N/V. Review / Management Condition: Stable. Plan Transfer/Discharge: Transfer/Discharge Discharge when meets criteria ( To home ). [facility] Comment on above: Result Comment: Elec tronically Signed By: Jay Jay Valderrama Jr, DO\.br\Date and Time Signed: 05/24/23 13:53 EST RAD - CT Reporton 05-24-2023 RAD - CT Report [id number] [facility] RAD - CT Report [id number] [facility] Consenton 05-23-2023 Consent [id number]#1.00TIFF [facility] Discharge Instructionson Discharge Instructions [id number]#1.00TIFF [facility] Postoperative Documentson Postoperative Documents [id number]#1.00TIFF [facility] Colonoscopy Procedure Report on 05-22-2023 Colonoscopy Procedure Report Patient: MUNIRA CHESTER Age: 72 years Sex: Female : 1950 Associated Diagnoses: None Author: Del Nettles MD Pre-Procedure Procedure Date 05/22/2023 08:47:00 . Procedure Type: Colonoscopy. Procedure provider ut. Current history and physical Colonoscopy ([id number]) on 09/07/2019 at 69 Years. EGD - Esophagogastroduodenoscop y (5781890510) on 09/07/2019 at 69 Years. EGD - Esophagogastroduodenoscop y (2178097866) on 01/16/2015 at 64 Years. Colonoscopy ([id number]) on 01/16/2015 at 64 Years. Comments: 08/31/2019 16:19 Tonie Ro LPN normal EGD - Esophagogastroduodenoscop y ([id number]) on 08/17/2011 at 61 Years. EGD - Esophagogastroduodenoscop y (7734063662) on 05/17/2011 at 60 Years. Laparoscopic cholecystectomy ([id number]) on 06/16/2010 at 59 Years. Colonoscopy ([id number]) on 01/16/2010 at 59 Years. section (). Rotator cuff repair (695261250). Tubal ligation (526263802). Cataracts (6646128540). Foot (67639994).. Past Medical History Resolved Reflux of urine (2402423593): Resolved.. Family History Rheumatoid arthritis Mother Primary malignant neoplasm of lung Mother Diabetes mellitus type 2 Father Primary malignant neoplasm of female breast Sister . Procedure History Colonoscopy ([id number]) on 09/07/2019 at 69 Years. EGD - Esophagogastroduodenoscop y ([id number]) on 09/07/2019 at 69 Years. EGD - Esophagogastroduodenoscop y (3700947624) on 01/16/2015 at 64 Years. Colonoscopy ([id number]) on 01/16/2015 at 64 Years. Comments: 08/31/2019 16:19 Tonie Ro LPN normal EGD - Esophagogastroduodenoscop y ([id number]) on 08/17/2011 at 61 Years. EGD - Esophagogastroduodenoscop y (8592490822) on 05/17/2011 at 60 Years. Laparoscopic cholecystectomy ([id number]) on 06/16/2010 at 59 Years. Colonoscopy ([id number]) on 01/16/2010 at 59 Years. section (). Rotator cuff repair (262568485). Tubal ligation (595641893). Cataracts (4002038794). Foot (96698579).. Colorectal neoplasm risk assessment Average risk. Informed Consent After discussing the rationale, risks and benefits, and alternatives to this procedure, the patient provided signed consent for the procedure. Pre-procedure diagnosis: Iron deficiency anemia, unexplained. Medications (Selected) Inpatient Medications Ordered Lactated Ringers IV Carlene 1000 mL 1,000 mL: 1,000 mL, IV, 100 mL/hr, Routine, Start date 05/22/23 7:19:00 EST, 10 hour(s), Total volume (mL): 1,000, 70.8 kg, 1.76, m2 Sodium Chloride 0.9% IV Carlene 1000 mL 1,000 mL: 1,000 mL, IV, 20 mL/hr, Routine, Start date 05/22/23 6:37:00 EST, 50 hour(s), Total volume (mL): 1,000, 70.8 kg, 1.76, m2 Prescriptions Prescribed Macrobid 100 mg Cap: 100 mg = 1 cap(s), Oral, As Directed, take 1 tablet within 1 hour before or after intercourse to prevent infection., # 30 cap(s), Refills(s) 3, Pharmacy: [facility], 158, cm, 02/20/23 8:48:00 EST, Height/Length Dosing, 68.5, kg,... Pantoprazole [address] Tab: 40 mg = 1 tab(s), Oral, Daily, # 90 tab(s), Refills(s) 1, Pharmacy: [facility] [facility], 154.9, cm, 12/11/19 9:26:00 EDT, Height/Length Dosing, 70.2, kg, 12/11/19 9:26:00 EDT, Weight Dosing estradiol 0.1 mg/g Vag Crm: See Instructions, 42.5 gm, Refill(s) 0, apply pea sized amount to urethra 2x/wk, [facility], 158, cm, 02/20/23 8:48:00 EST, Height/Length Dosing, 68.5, kg, 02/20/23 8:48:00 EST, Weight Dosing Documented Medications Documented EpiPen 2-Giovani: 0.3 mg, IntraMuscular, Once, PRN Anaphylaxis, Refills(s) 0 Ferrex-150: 150 mg, Oral, Every other day, Refills(s) 0, Prophylaxis Fosamax 70 mg Tab: 70 mg = 1 tab(s), Oral, qWeek, Refills(s) 0, Prophylaxis ProAir HFA 90 mcg/inh inhalation aerosol: 2 puff(s), Inhalation, q4hr Shortness of breath or wheezing, Refill(s) 0 Trelegy Ellipta: Inhalation, Daily, Refills(s) 0, Shortness of breath or wheezing Vitamin D3: Oral, Daily, Refills(s) 0, Prophylaxis amLODIPine 5 mg Tab: 5 mg = 1 tab(s), Oral, Daily, Refills(s) 0, High blood pressure atorvastatin 10 mg Tab: 10 mg = 1 tab(s), Oral, Daily, Refills(s) 0, High cholesterol famotidine 20 mg Tab: mg tab(s), Oral, BID, Refills(s) 0, Control of stomach acid fluticasone 0.05 mg/inh Nasal Flippin: 2 spray(s), Nasal, Daily, Refill(s) 0 levothyroxine 88 mcg (0.088 mg) Tab: 88 microgram = 1 tab(s), Oral, Daily, Refills(s) 0, Thyroid montelukast: 10 mg, Oral, qPM, Refills(s) 0, Asthma ASA Classification: Class II. . Procedure The procedure was performed in the hospital. Rectal exam was performed and was normal. Endoscope type used was a pediatric-size. The endoscope was lubricated then introduced through the anus. The scope was advanced to the terminal ileum. No difficulties encountered during the procedure. The bowel preparation quality was adequate (see polyps greater than or equal to 6 millimeters). The patient tolerated the procedure well. Findings Diverticul (more content not included)... Normal [facility] Comment on above: Other Comment: Alma enrique Attachment - attachment storage system not supported [id number] Can be viewed in source systemMissing Attachment - attachment storage system not supported [id number] Can be viewed in source systemMissing Attachment - attachment storage system not supported [id number] Can be viewed in source systemMissing Attachment - attachment storage system not supported [id number] Can be viewed in source systemMissing Attachment - attachment storage system not supported [id number] Can be viewed in source systemMissing Attachment - attachment storage system not supported [id number] Can be viewed in source systemMissing Attachment - attachment storage system not supported [id number] Can be viewed in source systemMissing Attachment - attachment storage system not supported [id number] Can be viewed in source system Consent for Treatmenton 03-0 Consent for Treatment [id number] Normal [facility] Consultation Noteon 05-22-19 Consultation Note Patient: MUNIRA CHESTER Age: 72 years Sex: Female : 1950 Associated Diagnoses: None Author: Del Nettles MD Pre-Procedure Procedure Date 05/22/2023 08:23:00 . Procedure Type: Esophagogastroduodenoscop y with biopsy. Pre-procedure diagnosis: Diagnostic: Anemia of iron deficiency. Medications (Selected) Inpatient Medications Ordered Lactated Ringers IV Carlene 1000 mL 1,000 mL: 1,000 mL, IV, 100 mL/hr, Routine, Start date 05/22/23 7:19:00 EST, 10 hour(s), Total volume (mL): 1,000, 70.8 kg, 1.76, m2 Sodium Chloride 0.9% IV Carlene 1000 mL 1,000 mL: 1,000 mL, IV, 20 mL/hr, Routine, Start date 05/22/23 6:37:00 EST, 50 hour(s), Total volume (mL): 1,000, 70.8 kg, 1.76, m2 Prescriptions Prescribed Macrobid 100 mg Cap: 100 mg = 1 cap(s), Oral, As Directed, take 1 tablet within 1 hour before or after intercourse to prevent infection., # 30 cap(s), Refills(s) 3, Pharmacy: [facility], 158, cm, 02/20/23 8:48:00 EST, Height/Length Dosing, 68.5, kg,... Pantoprazole [address] Tab: 40 mg = 1 tab(s), Oral, Daily, # 90 tab(s), Refills(s) 1, [facility] [address], 154.9, cm, 12/11/19 9:26:00 EDT, Height/Length Dosing, 70.2, kg, 12/11/19 9:26:00 EDT, Weight Dosing estradiol 0.1 mg/g Vag Crm: See Instructions, 42.5 gm, Refill(s) 0, apply pea sized amount to urethra 2x/wk, [facility], 158, cm, 02/20/23 8:48:00 EST, Height/Length Dosing, 68.5, kg, 02/20/23 8:48:00 EST, Weight Dosing Documented Medications Documented EpiPen 2-Giovani: 0.3 mg, IntraMuscular, Once, PRN Anaphylaxis, Refills(s) 0 Ferrex-150: 150 mg, Oral, Every other day, Refills(s) 0, Prophylaxis Fosamax 70 mg Tab: 70 mg = 1 tab(s), Oral, qWeek, Refills(s) 0, Prophylaxis ProAir HFA 90 mcg/inh inhalation aerosol: 2 puff(s), Inhalation, q4hr Shortness of breath or wheezing, Refill(s) 0 Trelegy Ellipta: Inhalation, Daily, Refills(s) 0, Shortness of breath or wheezing Vitamin D3: Oral, Daily, Refills(s) 0, Prophylaxis amLODIPine 5 mg Tab: 5 mg = 1 tab(s), Oral, Daily, Refills(s) 0, High blood pressure atorvastatin 10 mg Tab: 10 mg = 1 tab(s), Oral, Daily, Refills(s) 0, High cholesterol famotidine 20 mg Tab: mg tab(s), Oral, BID, Refills(s) 0, Control of stomach acid fluticasone 0.05 mg/inh Nasal Flippin: 2 spray(s), Nasal, Daily, Refill(s) 0 levothyroxine 88 mcg (0.088 mg) Tab: 88 microgram = 1 tab(s), Oral, Daily, Refills(s) 0, Thyroid montelukast: 10 mg, Oral, qPM, Refills(s) 0, Asthma ASA Classification: Class II. . Monitoring: See anesthesia record. . Procedure The procedure was performed in the hospital. See anesthesia record for sedation given during procedure. Endoscope type used was an adult-size, introduced orally, advanced to duodenum. No difficulty was encountered during the procedure. Views were good. Duodenal biopsies were taken. The patient tolerated the procedure well. Findings Z-line was irregular at 34 cm Mild hiatal hernia Bilious fluids in the fundus Mild patchy erythema of the stomach consistent with bile reflux Widely open pyloric channel Duodenal stricture in the first segment of the duodenum; dilated while advancing the scope Random biopsies obtained from the duodenum Images Procedure images: Rec1_hd_video_4_03_06T _29_414.jpg Rec1_hd_video_4_03_06T __44_784.jpg Rec1_hd_video_4__06T _53_345.jpg Rec1_hd_video_4_03_06T 08__03_390.jpg Rec1_hd_video_2024_03_06T 08__23_607.jpg Rec1_hd_video_4_03_06T 08__30_290.jpg Rec1_hd_video_4_03_06T 08__16_512.jpg Rec1_hd_video_4_03_06T _56_296.jpg Rec1_hd_video_4_03_06T 08_57_453.jpg Rec1_hd_video_4_03_06T _31_556.jpg Rec1_hd_video_2024_03_06T _57_490.jpg . Post-Procedure Complications: none. Estimated blood loss: none. Specimens: sent to pathology. Devices/ implants: none left in place. Impression and Plan EGD: Diagnosis: Bile reflux gastritis (LFL39-DX K29.60, Working, Medical). Course: Progressing as expected. Education and Follow-up: Counseled: Family. Notes: Continue current medication Follow-up pathology report. might benefit from CT enterography versus capsule endoscopy in the future Normal [facility] Comment on above: Result Comment: Elec tronically Signed By: Tho VILLEGAS, Del Duckworth\.br\Date and Time Signed: 05/22/23 09:05 EST Other Comment: Alma enrique Attachment - attachment storage system not supported [id number] Can be viewed in source systemMissing Attachment - attachment storage system not supported [id number] Can be viewed in source systemMissing Attachment - attachment storage system not supported [id number] Can be viewed in source systemMissing Attachment - attachment storage system not supported [id number] Can be viewed in source systemMissing Attachment - attachment storage system not supported [id number] Can be viewed in source systemMissing Attachment - attachment storage system not supported [id number] Can be viewed in source systemMissing Attachment - attachment storage system not supported [id number] Can be viewed in source systemMissing Attachment - attachment storage system not supported [id number] Can be viewed in source systemMissing Attachment - attachment storage system not supported [id number] Can be viewed in source systemMissing Attachment - attachment storage system not supported [id number] Can be viewed in source systemMissing Attachment - attachment storage system not supported [id number] Can be viewed in source system Consultation Note Patient: MUNIRA CHESTER Age: 72 years Sex: Female : 1950 Associated Diagnoses: None Author: Del Nettles MD Pre-Procedure Procedure Date 05/22/2023 08:47:00 . Procedure Type: Colonoscopy. Procedure provider me. Current history and physical Colonoscopy ([id number]) on 09/07/2019 at 69 Years. EGD - Esophagogastroduodenoscop y ([id number]) on 09/07/2019 at 69 Years. EGD - Esophagogastroduodenoscop y ([id number]) on 01/16/2015 at 64 Years. Colonoscopy ([id number]) on 01/16/2015 at 64 Years. Comments: 08/31/2019 16:19 EDT - Yung NIETON, Tonie Esqueda normal EGD - Esophagogastroduodenoscop y ([id number]) on 08/17/2011 at 61 Years. EGD - Esophagogastroduodenoscop y ([id number]) on 05/17/2011 at 60 Years. Laparoscopic cholecystectomy ([id number]) on 06/16/2010 at 59 Years. Colonoscopy ([id number]) on 01/16/2010 at 59 Years. section ([id number]). Rotator cuff repair ([id number]). Tubal ligation (658466272). Cataracts (3084286501). Foot ([id number]).. Past Medical History Resolved Reflux of urine ([id number]): Resolved.. Family History Rheumatoid arthritis Mother Primary malignant neoplasm of lung Mother Diabetes mellitus type 2 Father Primary malignant neoplasm of female breast Sister . Procedure History Colonoscopy ([id number]) on 09/07/2019 at 69 Years. EGD - Esophagogastroduodenoscop y ([id number]) on 09/07/2019 at 69 Years. EGD - Esophagogastroduodenoscop y ([id number]) on 01/16/2015 at 64 Years. Colonoscopy ([id number]) on 01/16/2015 at 64 Years. Comments: 08/31/2019 16:19 EDT - Tonie Barragan LPN normal EGD - Esophagogastroduodenoscop y ([id number]) on 08/17/2011 at 61 Years. EGD - Esophagogastroduodenoscop y ([id number]) on 05/17/2011 at 60 Years. Laparoscopic cholecystectomy ([id number]) on 06/16/2010 at 59 Years. Colonoscopy ([id number]) on 01/16/2010 at 59 Years. section ([id number]). Rotator cuff repair (393188879). Tubal ligation (306356657). Cataracts ([id number]). Foot (59388363).. Colorectal neoplasm risk assessment Average risk. Informed Consent After discussing the rationale, risks and benefits, and alternatives to this procedure, the patient provided signed consent for the procedure. Pre-procedure diagnosis: Iron deficiency anemia, unexplained. Medications (Selected) Inpatient Medications Ordered Lactated Ringers IV Carlene 1000 mL 1,000 mL: 1,000 mL, IV, 100 mL/hr, Routine, Start date 05/22/23 7:19:00 EST, 10 hour(s), Total volume (mL): 1,000, 70.8 kg, 1.76, m2 Sodium Chloride 0.9% IV Carlene 1000 mL 1,000 mL: 1,000 mL, IV, 20 mL/hr, Routine, Start date 05/22/23 6:37:00 EST, 50 hour(s), Total volume (mL): 1,000, 70.8 kg, 1.76, m2 Prescriptions Prescribed Macrobid 100 mg Cap: 100 mg = 1 cap(s), Oral, As Directed, take 1 tablet within 1 hour before or after intercourse to prevent infection., # 30 cap(s), Refills(s) 3, Pharmacy: [facility], 158, cm, 02/20/23 8:48:00 EST, Height/Length Dosing, 68.5, kg,... Pantoprazole [address] Tab: 40 mg = 1 tab(s), Oral, Daily, # 90 tab(s), Refills(s) 1, Pharmacy: [facility] [address], 154.9, cm, 12/11/19 9:26:00 EDT, Height/Length Dosing, 70.2, kg, 12/11/19 9:26:00 EDT, Weight Dosing estradiol 0.1 mg/g Vag Crm: See Instructions, 42.5 gm, Refill(s) 0, apply pea sized amount to urethra 2x/wk, [facility], 158, cm, 02/20/23 8:48:00 EST, Height/Length Dosing, 68.5, kg, 02/20/23 8:48:00 EST, Weight Dosing Documented Medications Documented EpiPen 2-Giovani: 0.3 mg, IntraMuscular, Once, PRN Anaphylaxis, Refills(s) 0 Ferrex-150: 150 mg, Oral, Every other day, Refills(s) 0, Prophylaxis Fosamax 70 mg Tab: 70 mg = 1 tab(s), Oral, qWeek, Refills(s) 0, Prophylaxis ProAir HFA 90 mcg/inh inhalation aerosol: 2 puff(s), Inhalation, q4hr Shortness of breath or wheezing, Refill(s) 0 Trelegy Ellipta: Inhalation, Daily, Refills(s) 0, Shortness of breath or wheezing Vitamin D3: Oral, Daily, Refills(s) 0, Prophylaxis amLODIPine 5 mg Tab: 5 mg = 1 tab(s), Oral, Daily, Refills(s) 0, High blood pressure atorvastatin 10 mg Tab: 10 mg = 1 tab(s), Oral, Daily, Refills(s) 0, High cholesterol famotidine 20 mg Tab: mg tab(s), Oral, BID, Refills(s) 0, Control of stomach acid fluticasone 0.05 mg/inh Nasal Flippin: 2 spray(s), Nasal, Daily, Refill(s) 0 levothyroxine 88 mcg (0.088 mg) Tab: 88 microgram = 1 tab(s), Oral, Daily, Refills(s) 0, Thyroid montelukast: 10 mg, Oral, qPM, Refills(s) 0, Asthma ASA Classification: Class II. . Procedure The procedure was performed in the hospital. Rectal exam was performed and was normal. Endoscope type used was a pediatric-size. The endoscope was lubricated then introduced through the anus. The scope was advanced to the terminal ileum. No difficulties encountered during the procedure. The bowel preparation quality was good and was adequate (see polyps greater than or equal to 6 millimeters). The patient tolerated the procedure well. Findings (more content not included)... Normal [facility] Comment on above: Result Comment: Elec tronically Signed By: Tho VILLEGAS, Del Duckworth\.br\Date and Time Signed: 05/22/23 08:51 EST error Other Comment: Alma enrique Attachment - attachment storage system not supported [id number] Can be viewed in source system Missing Attachment - attachment storage system not supported [id number] Can be viewed in source system Missing Attachment - attachment storage system not supported [id number] Can be viewed in source system Missing Attachment - attachment storage system not supported [id number] Can be viewed in source system Missing Attachment - attachment storage system not supported [id number] Can be viewed in source system Missing Attachment - attachment storage system not supported [id number] Can be viewed in source system Missing Attachment - attachment storage system not supported [id number] Can be viewed in source system Missing Attachment - attachment storage system not supported [id number] Can be viewed in source system Discharge Instructionson Discharge Instructions MUNIRA CHESTER :1950 Visit Date:05/22/2023 Inpatient Discharge Instructions Your Care Team Admitting Physician - Del Nettles MD Referring Physician - Del Nettles MD Reason for Your Visit DIVERTICULOSIS OF LARGE INTESTINE WITHOUT PERFERATION OR ABSESS WITHOUT BLEEDING, UNSPECIFIED [place], BILE REFLUX GASTRITIS, GERD, HX OF GASTRIC ULCER Your Diagnosis Bile reflux gastritis Colon, diverticulosis Duodenal stricture Tests Performed Pathology Tissue Exam -- Results Pending -- Please visit your patient portal for your results or contact your primary care physician. This Is Your Medications List albuterol (ProAir HFA 90 mcg/inh inhalation aerosol) alendronate (Fosamax 70 mg Tab) amlodipine (amLODIPine 5 mg Tab) atorvastatin (atorvastatin 10 mg Tab) cholecalciferol (Vitamin D3) epinephrine (EpiPen 2-Giovani) estradiol topical (estradiol 0.1 mg/g Vag Crm) famotidine (famotidine 20 mg Tab) fluticasone nasal (fluticasone 0.05 mg/inh Nasal Flippin) fluticasone/umeclidinium/ vilanterol (Trelegy Ellipta) iron polysaccharide (Ferrex-150) levothyroxine (levothyroxine 88 mcg (0.088 mg) Tab) montelukast nitrofurantoin (Macrobid 100 mg Cap) pantoprazole (Pantoprazole [address] Tab) Procedure History Colonoscopy (05/22/2023), Esophagogastroduodenoscop y (05/22/2023), Colonoscopy (09/07/2019), EGD - Esophagogastroduodenoscop y (09/07/2019), Colonoscopy (01/16/2015), EGD - Esophagogastroduodenoscop y (01/16/2015), EGD - Esophagogastroduodenoscop y (08/17/2011), EGD - Esophagogastroduodenoscop y (05/17/2011), Laparoscopic cholecystectomy (06/16/2010), Colonoscopy (01/16/2010), Cataracts, section, Foot, Rotator cuff repair, Tubal ligation. Discharge Vitals Temperature (Temporal Artery) 36.4 ?C Heart Rate (Monitored) 65 Respiratory Rate 10 Blood Pressure 111/71 Height 158 cm Weight 70.8 kg BMI 28.36 What to do next Instructions From Your Doctor Event Name Event Result Pharmacy Information Other: [facility] Discharge Instructions Discharge Instructions Previously Scheduled Follow-Up Appointments Saturday 8:00 AM EST With: Dewayne VILLEGAS, Asuncion [place] Where: [facility] Comment on above: Result Comment: Elec tronically Signed By: Byron KILLIAN, Leighann\.br\Date and Time Signed: 05/22/23 09:29 EST Discharge Instructions MUNIRA CHESTER :1950 Visit Date:05/22/2023 Inpatient Discharge Instructions Your Care Team Admitting Physician - Del Nettles MD Referring Physician - Del Nettles MD Reason for Your Visit DIVERTICULOSIS OF LARGE INTESTINE WITHOUT PERFERATION OR ABSESS WITHOUT BLEEDING, UNSPECIFIED [place], BILE REFLUX GASTRITIS, GERD, HX OF GASTRIC ULCER Your Diagnosis Bile reflux gastritis Colon, diverticulosis Duodenal stricture Tests Performed Pathology Tissue Exam -- Results Pending -- Please visit your patient portal for your results or contact your primary care physician. This Is Your Medications List albuterol (ProAir HFA 90 mcg/inh inhalation aerosol) alendronate (Fosamax 70 mg Tab) amlodipine (amLODIPine 5 mg Tab) atorvastatin (atorvastatin 10 mg Tab) cholecalciferol (Vitamin D3) epinephrine (EpiPen 2-Giovani) estradiol topical (estradiol 0.1 mg/g Vag Crm) famotidine (famotidine 20 mg Tab) fluticasone nasal (fluticasone 0.05 mg/inh Nasal Flippin) fluticasone/umeclidinium/ vilanterol (Trelegy Ellipta) iron polysaccharide (Ferrex-150) levothyroxine (levothyroxine 88 mcg (0.088 mg) Tab) montelukast nitrofurantoin (Macrobid 100 mg Cap) pantoprazole (Pantoprazole [address] Tab) Procedure History Colonoscopy (05/22/2023), Esophagogastroduodenoscop y (05/22/2023), Colonoscopy (09/07/2019), EGD - Esophagogastroduodenoscop y (09/07/2019), Colonoscopy (01/16/2015), EGD - Esophagogastroduodenoscop y (01/16/2015), EGD - Esophagogastroduodenoscop y (08/17/2011), EGD - Esophagogastroduodenoscop y (05/17/2011), Laparoscopic cholecystectomy (06/16/2010), Colonoscopy (01/16/2010), Cataracts, section, Foot, Rotator cuff repair, Tubal ligation. What to do next Instructions From Your Doctor Event Name Event Result Pharmacy Information Other: [facility] Previously Scheduled Follow-Up Appointments Saturday 8:00 AM EST With: Dewayne VILLEGAS, Asuncion [place] Where: [facility] Comment on above: Result Comment: Elec tronically Signed By: Nat Rodriguez I\.br\Date and Time Signed: 05/22/23 08:59 EST [facility] 05-22-2023 Esophagogastroduodenoscop y Patient: MUNIRA CHESTER Age: 72 years Sex: Female : 1950 Associated Diagnoses: None Author: Del Nettles MD Pre-Procedure Procedure Date 05/22/2023 08:23:00 . Procedure Type: Esophagogastroduodenoscop y with biopsy. Pre-procedure diagnosis: Diagnostic: Anemia of iron deficiency. Medications (Selected) Inpatient Medications Ordered Lactated Ringers IV Carlene 1000 mL 1,000 mL: 1,000 mL, IV, 100 mL/hr, Routine, Start date 05/22/23 7:19:00 EST, 10 hour(s), Total volume (mL): 1,000, 70.8 kg, 1.76, m2 Sodium Chloride 0.9% IV Carlene 1000 mL 1,000 mL: 1,000 mL, IV, 20 mL/hr, Routine, Start date 05/22/23 6:37:00 EST, 50 hour(s), Total volume (mL): 1,000, 70.8 kg, 1.76, m2 Prescriptions Prescribed Macrobid 100 mg Cap: 100 mg = 1 cap(s), Oral, As Directed, take 1 tablet within 1 hour before or after intercourse to prevent infection., # 30 cap(s), Refills(s) 3, Pharmacy: [facility], 158, cm, 02/20/23 8:48:00 EST, Height/Length Dosing, 68.5, kg,... Pantoprazole [address] Tab: 40 mg = 1 tab(s), Oral, Daily, # 90 tab(s), Refills(s) 1, Pharmacy: [address], 154.9, cm, 12/11/19 9:26:00 EDT, Height/Length Dosing, 70.2, kg, 12/11/19 9:26:00 EDT, Weight Dosing estradiol 0.1 mg/g Vag Crm: See Instructions, 42.5 gm, Refill(s) 0, apply pea sized amount to urethra 2x/wk, [facility], 158, cm, 02/20/23 8:48:00 EST, Height/Length Dosing, 68.5, kg, 02/20/23 8:48:00 EST, Weight Dosing Documented Medications Documented EpiPen 2-Giovani: 0.3 mg, IntraMuscular, Once, PRN Anaphylaxis, Refills(s) 0 Ferrex-150: 150 mg, Oral, Every other day, Refills(s) 0, Prophylaxis Fosamax 70 mg Tab: 70 mg = 1 tab(s), Oral, qWeek, Refills(s) 0, Prophylaxis ProAir HFA 90 mcg/inh inhalation aerosol: 2 puff(s), Inhalation, q4hr Shortness of breath or wheezing, Refill(s) 0 Trelegy Ellipta: Inhalation, Daily, Refills(s) 0, Shortness of breath or wheezing Vitamin D3: Oral, Daily, Refills(s) 0, Prophylaxis amLODIPine 5 mg Tab: 5 mg = 1 tab(s), Oral, Daily, Refills(s) 0, High blood pressure atorvastatin 10 mg Tab: 10 mg = 1 tab(s), Oral, Daily, Refills(s) 0, High cholesterol famotidine 20 mg Tab: mg tab(s), Oral, BID, Refills(s) 0, Control of stomach acid fluticasone 0.05 mg/inh Nasal Flippin: 2 spray(s), Nasal, Daily, Refill(s) 0 levothyroxine 88 mcg (0.088 mg) Tab: 88 microgram = 1 tab(s), Oral, Daily, Refills(s) 0, Thyroid montelukast: 10 mg, Oral, qPM, Refills(s) 0, Asthma ASA Classification: Class II. . Monitoring: See anesthesia record. . Procedure The procedure was performed in the hospital. See anesthesia record for sedation given during procedure. Endoscope type used was an adult-size, introduced orally, advanced to duodenum. No difficulty was encountered during the procedure. Views were good. Duodenal biopsies were taken. The patient tolerated the procedure well. Findings Z-line was irregular at 34 cm Mild hiatal hernia Bilious fluids in the fundus Mild patchy erythema of the stomach consistent with bile reflux Widely open pyloric channel Duodenal stricture in the first segment of the duodenum; dilated while advancing the scope Random biopsies obtained from the duodenum Images Procedure images: Rec1_hd_video_2023___29_414.jpg Rec1_hd_video___44_784.jpg Rec1_hd_video___53_345.jpg Rec1_hd_video__03_390.jpg Rec1_hd_video___23_607.jpg Rec1_hd_video___30_290.jpg Rec1_hd_video___16_512.jpg Rec1_hd_video___56_296.jpg Rec1_hd_video_2024__57_453.jpg Rec1_hd_video__T __556.jpg Rec1_hd_video_T __490.jpg . Post-Procedure Complications: none. Estimated blood loss: none. Specimens: sent to pathology. Devices/ implants: none left in place. Impression and Plan EGD: Diagnosis: Bile reflux gastritis (XRD65-QS K29.60, Working, Medical). Course: Progressing as expected. Education and Follow-up: Counseled: Family. Notes: Continue current medication Follow-up pathology report. [facility] Comment on above: Other Comment: Alma enrique Attachment - attachment storage system not supported [id number] [facility] be [facility] Attachment - attachment storage system not supported [id number] Can be viewed in [facility] Attachment - attachment storage system not supported [id number] Can be viewed in [facility] Attachment - attachment storage system not supported [id number] Can be viewed in [facility] Attachment - attachment storage system not supported [id number] Can be viewed in [facility] Attachment - attachment storage system not supported [id number] Can be viewed in source systemMissing Attachment - attachment storage system not supported [id number] Can be viewed in source systemMissing Attachment - attachment storage system not supported [id number] Can be viewed in [facility] Attachment - attachment storage system not supported [id number] Can be viewed in [facility] Attachment - attachment storage system not supported [id number] Can be viewed in source systemMissing Attachment - attachment storage system not supported [id number] Can be viewed in source system Main OR PACU I Recordon 03-0 Main OR PACU I Record PACU Phase I Docum ent Type FT Summary Primary Physician: Del Nettles MD Finalized Date/Time: 05/22/23 09:41:42 Pt. Name: MUNIRA CHESTER/Sex: 1950 Female Med Rec #: [id number] Physician: Del Nettles MD Financial #: [id number] Pt. Type: O Room/Bed: / Admit/Disch: 05/22/23 06:55:50 - Institution: Case Times PACU I FT Pre-Care Text: Identifies barriers to communication and implements measures to provide psychological support Develops individualized plan of care, and ensures continuity of care Maintains patient's dignity and privacy, and maintains patient confidentiality Identifies and reports philosophical, cultural, and spiritual beliefs and values Identifies individual values and wishes concerning care Implements aseptic technique, and administers prescribed antibiotic therapy and immunizing agents as ordered Evaluates postoperative tissue perfusion Implements thermoregulation measures, and monitors body temperature Evaluates postoperative respiratory status Evaluates postoperative cardiac status Evaluates postoperative neurological status Assesses pain control, collaborated in initiating patient-controlled analgesia and implements alternative methods of pain control Verifies allergies, administers prescribed medications and solutions, evaluates response to medications Entry 1 In PACU I 05/22/23 08:50:00 Discharge from PACU 05/22/23 09:20:00 I Outcomes Met? Yes Last Modified By: Nat Rodriguez I 05/22/23 09:41:24 Post-Care Text: The patient demonstrates knowledge of the expected response to the operative or invasive procedure The patient's care is consistent with the individualized perioperative plan of care The patient's right to privacy is maintained The patient's value system, lifestyle, ethnicity, and culture are considered, respected, and incorporated into the perioperative plan of care The patient participates in decisions affecting his or her perioperative plan of care The patient is free from signs and symptoms of infection The patient has wound/tissue perfusion consistent with or improved from baseline levels established preoperatively The patient is at or returning to normothermia at the conclusion of the immediate postoperative period The patient's respiratory function is consistent with or improved from baseline levels established preoperatively The patient's cardiovascular status is consistent with or improved from baseline levels established preoperatively The patient's cardiovascular status is consistent with or improved from baseline levels established preoperatively The patient demonstrates and/or reports adequate pain control throughout the perioperative period The patient received appropriate medication(s), safely administered during the perioperative period Acuity Level PACU I FT Entry 1 Start Time 05/22/23 08:50:00 Stop Time 05/22/23 09:20:00 Acuity Level Acuity Level I Last Modified By: Nat Rodriguez I 05/22/23 09:41:38 Finalized By: Nat Rodriguez I Document Signatures Signed By: Nat Rodriguez I 05/22/23 09:41 Normal [facility] Main OR Preoperative Recordo n 05-22-2023 Main OR Preoperative Record Holding Area Document Type FT Summary Primary Physician: Del Nettles MD Finalized Date/Time: 05/22/23 07:08:55 Pt. Name: MUNIRA CHESTER Aviva/Sex: 1950 Female Med Rec #: [id number] Physician: Del Nettles MD Financial #: [id number] Pt. Type: O Room/Bed: / Admit/Disch: 05/22/23 06:55:50 - Institution: Case Times Holding FT Pre-Care Text: Verifies consent for planned procedure, identifies individual values and wishes concerning care, includes family members in perioperative teaching Secures patient's records' belongings, and valuables, maintains patient's dignity and privacy, and maintains patient confidentiality Entry 1 In Holding 05/22/23 07:00:00 Outcomes Met? Yes Last Modified By: Carrie KILLIAN, Neli Barrera 05/22/23 07:07:39 Post-Care Text: The patient participates in decisions affecting his or her perioperative plan of care The patient's right to privacy is maintained Surgery Checklist FT Entry 1 Patient Birthday, ID Band Procedure History and Physical, Identification: Check, Patient Verification: Surgical Consent, With Participation Patient NPO after Midnight: Yes Date/Time: 05/22/23 03:00:00 Personal Items: Cataract Lens Implant, Personal Items glasses, ring, clothes, Glasses, Jewelry Comment: shoes, bilat. cataract lens implant, right foot metal implant, right shoulder metal implant Limitations: n/a Complaints of Pain: No Pain Comment: denies Operative Site n/a Marking: Marked By: n/A Availability Equipment Verified: Does Patient Smoke No Patient states Yes Comment - Adult Cyrus- spouse postop adult Supervision supervision available Case Cancelled in No Holding Area see comments below for reason Last Modified By: Carrie KILLIAN, Neli Barrera 05/22/23 07:08:52 General Comments: Pt finished colon prep at 0300, states stool is clear liquid yellow. Has been NPO since. /MD,RN Finalized By: Neli Butlre RN Document Signatures Signed By: Neli Butler RN 05/22/23 07:08 Normal [facility] Monitor Recordon 05-22-2023 Monitor Record [id number] Normal [facility] Monitor Record [id number] Normal [facility] Patient Education - Texton 0 05-22-2023 Patient Education - Text Colonoscopy Care After Surgery Please read the instructions outlined below and refer to this sheet in the next few weeks. These discharge instructions provide you with general information on caring for yourself after you leave the hospital. Your doctor may also give you specific instructions. While your treatment has been planned according to the most current medical practices available, unavoidable complications occasionally occur. If you have any problems or questions after discharge, please call your doctor. ACTIVITY You may resume your regular activity, but move at a slower pace for the next 24 hours. Take frequent rest periods for the next 24 hours. Walking will help get rid of the air and reduce the bloated feeling in your abdomen (belly). No driving for 24 hours (because of the anesthesia (medicine) used during the test). You may shower. Do not sign any important legal documents or operate any machinery for 24 hours (because of the anesthesia used during the test). NUTRITION Drink plenty of fluids. You may resume your normal diet as instructed by your doctor. Begin with a light meal and progress to your normal diet. Heavy or fried foods are harder to digest and may make you feel nauseated (sick to your stomach). Avoid alcoholic beverages for 24 hours or as instructed. MEDICATIONS You may resume your normal medications unless your doctor tells you otherwise. WHAT YOU CAN EXPECT TODAY Some feelings of bloating in the abdomen. Passage of more gas than usual. Spotting of blood in your stool or on the toilet paper. FOLLOW-UP Your doctor will discuss the results of your test with you. SEEK IMMEDIATE MEDICAL ATTENTION IF: There is more than a spotting of blood in your stool. There is abdominal distention (your abdomen is swollen). There is vomiting. You have a temperature over 101.5 F. There is abdominal pain or discomfort that is severe or gets worse throughout the day. Diverticulosis Many people have small pouches in their colon called diverticulum. The diverticulum bulge outward through weak spots in the colon. You could have one or more of these pouches in the colon. The condition of having these pouches in the colon is called diverticulosis or diverticular disease. Diverticulosis is usually diagnosed by tests to evaluate something else. For example, you may have had a colonoscopy to screen for colon cancer when the diverticulosis was found. Most people with diverticulosis do not have any discomfort or problems. If symptoms develop, they may include mild cramps, bloating, and constipation. A complication of this condition is called diverticulitis. This is when the diverticulum become inflamed and infected. How to treat diverticulosis: Increasing the amount of fiber in the diet may reduce symptoms of diverticulosis and prevent complications such as diverticulitis (infected diverticuli). Fiber keeps stool soft and lowers pressure inside the colon so that bowel contents can move through easily. You should eat 20 to 35 grams of fiber each day. The table below shows the amount of fiber in some foods that you can easily add to your diet. Adding fiber slowly may decrease the bloating and fullness sometimes felt with an immediate high fiber diet. The doctor may also recommend taking a fiber product such as Citrucel or Metamucil once a day. In the past people with diverticulosis were to avoid nuts, corn, and seeds. This has not been found to be true. If you find that certain foods create cramping or bloating, avoid that food. Foods high in fiber include: Fresh fruits, fresh vegetables, legumes (beans), whole wheat bread, bran muffins or cereal, and nuts. See the table below for examples of high fiber foods. Remember, your goal is 20-35 grams per day. Amount of fiber in different foods Food Serving Grams of fiber Fruits Apple (with skin) 1 medium apple 4.4 Banana 1 medium banana 3.1 Oranges 1 orange 3.1 Prunes 1 cup, pitted 12.4 Juices Apple, unsweetened, w/added ascorbic acid 1 cup 0.5 Grapefruit, white, canned, sweetened 1 cup 0.2 Grape, unsweetened, w/added ascorbic acid 1 cup 0.5 [place] 1 cup 0.7 Vegetables Cooked Green beans 1 cup 4.0 Carrots 1/2 cup sliced 2.3 Peas 1 cup 8.8 Potato (baked, with skin) 1 medium potato 3.8 Raw [place] (with peel) 1 cucumber 1.5 Lettuce 1 cup shredded 0.5 Tomato 1 medium tomato 1.5 Spinach 1 cup 0.7 Legumes Baked beans, canned, no salt added 1 cup 13.9 Kidney beans, canned 1 cup 13.6 Beth beans, canned 1 cup 11.6 Lentils, boiled 1 cup 15.6 Breads, pastas, flours Bran muffins 1 medium muffin 5.2 Oatmeal, cooked 1 cup 4.0 White bread 1 slice 0.6 Whole-wheat bread 1 slice 1.9 Pasta and rice, cooked Macaroni 1 cup 2.5 Rice, brown 1 cup 3.5 Rice, white 1 cup 0.6 Spaghetti (regular) 1 cup 2.5 Nuts Almonds 1/2 cup 8.7 Peanuts 1/2 cup 7.9 Chart from [facility] 2013. SEEK IMMEDIATE MEDIC (more content not included)... Normal [facility] Consent for Procedure/Surger yon 05-16-2023 Consent for Procedure/Surgery [id number] [facility] Ambulatory Visit Summaryon 0 05-14-2023 Ambulatory Visit Summary MUNIRA CHESTER :1950 Visit Date:05/14/2023 Ambulatory Visit Instructions Your Diagnosis Iron deficiency anemia, unspecified Bile reflux gastritis GERD (gastroesophageal reflux disease) H/O gastric ulcer History of gastric ulcer Diverticulosis of large intestine without perforation or abscess without bleeding Left lower quadrant abdominal pain Reflux of urine Tests Performed CT Abdomen/Pelvis w/ Contrast -- Results Pending -- Please visit your patient portal for your results or contact your primary care physician. Your Care Team Attending Physician - Tho VILLEGAS, Del Duckworth Primary Care Physician - ANDREA GOLDEN DO This Is Your Medications List Contact prescribing physician if questions or concerns albuterol (ProAir HFA 90 mcg/inh inhalation aerosol) alendronate (Fosamax 70 mg Tab) amlodipine (amLODIPine 5 mg Tab) atorvastatin (atorvastatin 10 mg Tab) cholecalciferol (Vitamin D3) epinephrine (EpiPen 2-Giovani) estradiol topical (estradiol 0.1 mg/g Vag Crm) famotidine (famotidine 20 mg Tab) fluticasone nasal (fluticasone 0.05 mg/inh Nasal Flippin) fluticasone/umeclidinium/ vilanterol (Trelegy Ellipta 200 mcg-62.5 mcg-25 mcg/inh inhalation powder) fluticasone/umeclidinium/ vilanterol (Trelegy Ellipta) levothyroxine (levothyroxine 88 mcg (0.088 mg) Tab) nitrofurantoin (Macrobid 100 mg Cap) pantoprazole (Pantoprazole [address] Tab) Procedures Performed Colonoscopy (09/07/2019), EGD - Esophagogastroduodenoscop y (09/07/2019), Colonoscopy (01/16/2015), EGD - Esophagogastroduodenoscop y (01/16/2015), EGD - Esophagogastroduodenoscop y (08/17/2011), EGD - Esophagogastroduodenoscop y (05/17/2011), Laparoscopic cholecystectomy (06/16/2010), Colonoscopy (01/16/2010), Cataracts, section, Foot, Rotator cuff repair, Tubal ligation. Discharge Vitals Heart Rate (Peripheral) 89 Respiratory Rate 16 Blood Pressure 135/89 Height 158 cm Height 62 in Weight 70.8 kg Weight 155.76 lb BMI 28.36 What to do next Scheduled Follow-Up Appointments Saturday 8:00 AM EST With: Dewayne VILLEGAS, Asuncion [place] Where: [facility] Normal [facility] Gastroenterology Office/Clin ic Noteon 05-14-2023 Gastroenterology Office/Clinic Note Chief Complaint ref by [place] [place] HPI Staff This is a 72 year old female who presents today for a referral by [place] for complaints of Iron deficiency anemia. Last EGD/Colon w/ Nill 09/23/19 Bile reflux as well as sigmoid diverticulosis. Labs 04/11/23 Hemiglobin-9.5 Hematocrit- 32.1 Ferritin 14.0 Iron- 39 Review of Systems PHQ Score Initial Depression Screen Score: 0 SCORE Physical Exam Vitals & Measurements HR: 89(Peripheral) RR: 16 BP: 135/89 HT: 62 in HT: 158 cm WT: 70.8 kg WT: 155.76 lb BMI: 28.36 Assessment/Plan 1. Iron deficiency anemia, unspecified (D50.9: Iron deficiency anemia, unspecified) Ordered: Colonoscopy (Hospital Procedure) EGD Endoscopy (Hospital Procedure) 2. Bile reflux gastritis (K29.60: Other gastritis without bleeding) Ordered: Colonoscopy (Hospital Procedure) EGD Endoscopy (Hospital Procedure) 3. GERD (gastroesophageal reflux disease) (K21.9: Gastro-esophageal reflux disease without esophagitis) Ordered: Colonoscopy (Hospital Procedure) EGD Endoscopy (Hospital Procedure) 4. H/O gastric ulcer (Z87.19: Personal history of other diseases of the digestive system) Ordered: Colonoscopy (Hospital Procedure) EGD Endoscopy (Hospital Procedure) 5. History of gastric ulcer (Z87.11: Personal history of peptic ulcer disease) Ordered: Colonoscopy (Hospital Procedure) EGD Endoscopy (Hospital Procedure) 6. Diverticulosis of large intestine without perforation or abscess without bleeding (K57.30: Diverticulosis of large intestine without perforation or abscess without bleeding) Ordered: Colonoscopy (Hospital Procedure) EGD Endoscopy (Hospital Procedure) Reflux of urine (N13.70: Vesicoureteral-reflux, unspecified) Orders: CT Abdomen/Pelvis w/ Contrast Follow-up No qualifying data available Problem List/Past Medical History Ongoing Abdominal bloating Acute allergic rhinitis due to pollen Arthritis Asthma Asymptomatic microscopic hematuria Benign essential hypertension Bilateral cataracts Cervical spondylosis Chronic tension headache Duodenal stricture Epigastric pain GERD (gastroesophageal reflux disease) Graves disease H/O gastric ulcer History of gastric ulcer Hyperlipidemia Hypertension Hypothyroidism, acquired, autoimmune Incomplete bladder emptying Lumbar spondylosis Microscopic hematuria Migraine Mild persistent asthma Mixed incontinence Nocturia Osteopenia of lumbar spine Personal history of colonic polyps Recurrent UTI Urethral caruncle Urinary tract infection Historical Reflux of urine Procedure/Surgical History Colonoscopy (09/07/2019), EGD - Esophagogastroduodenoscop y (09/07/2019), Colonoscopy (01/16/2015), EGD - Esophagogastroduodenoscop y (01/16/2015), EGD - Esophagogastroduodenoscop y (08/17/2011), EGD - Esophagogastroduodenoscop y (05/17/2011), Laparoscopic cholecystectomy (06/16/2010), Colonoscopy (01/16/2010), Cataracts, section, Foot, Rotator cuff repair, Tubal ligation. Medications amLODIPine 5 mg Tab atorvastatin 10 mg Tab, 10 mg= 1 tab(s), Oral, Daily EpiPen 2-Giovani, 0.3 mg, IntraMuscular, Once estradiol 0.1 mg/g Vag Crm, See Instructions famotidine 20 mg Tab, Oral, BID fluticasone 0.05 mg/inh Nasal Flippin, 2 spray(s), Nasal, Daily Fosamax 70 mg Tab, 70 mg= 1 tab(s), Oral, qWeek levothyroxine 88 mcg (0.088 mg) Tab, 88 mcg= 1 tab(s), Oral, Daily Macrobid 100 mg Cap, 100 mg= 1 cap(s), Oral, As Directed, 3 refills Pantoprazole [address] Tab, 40 mg= 1 tab(s), Oral, Daily, 1 refills ProAir HFA 90 mcg/inh inhalation aerosol, 2 puff(s), Inhalation, q4hr, PRN Trelegy Ellipta, Inhalation, Daily Trelegy Ellipta 200 mcg-62.5 mcg-25 mcg/inh inhalation powder, Inhalation, Daily Vitamin D3 Allergies Bee Stings (SOB - Shortness of breath, Hives) contrast media (iodine-based) (SOB - Shortness of breath, Hives) penicillin (Rash) sulfa drugs (Angio-oedema) Social History Alcohol - Denies Alcohol Use, 09/04/2019 Substance Abuse - Denies Substance Abuse, 09/04/2019 Tobacco Never (less than 100 in lifetime) Tobacco Use:. Never Smokeless Tobacco Use:. Household tobacco concerns: No., 05/14/2023 Family History Diabetes mellitus type 2: Father. Primary malignant neoplasm of female breast: Sister. Primary malignant neoplasm of lung: Mother. Rheumatoid arthritis: Mother. Immunizations Vaccine Date Status Comments influenza virus vaccine, inactivated 12/31/2022 Recorded SARS-CoV-2 (COVID-19) [id number] 12/22/2021 Recorded influenza virus vaccine, inactivated 12/18/2021 Recorded SARS-CoV-2 (COVID-19) mRNA-1273 vaccine 07/04/2021 Recorded SARS-CoV-2 (COVID-19) mRNA-1273 vaccine 01/23/2021 Recorded influenza virus vaccine, inactivated 11/23/2020 Recorded SARS-CoV-2 (COVID-19) mRNA-1273 vaccine 06/02/2020 Recorded SARS-CoV-2 (COVID-19) mRNA-1273 vaccine 05/05/2020 Recorded SARS-CoV-2 (COVID-19) mRNA-1273 vaccine 2020 Recorded 3 shots to date infl (more content not included)... Normal [facility] Comment on above: Result Comment: Elec tronically Signed By: Tho VILLEGAS, Del Duckworth\.br\Date and Time Signed: 05/14/23 13:06 EST Gastroenterology Office/Clinic Note Chief Complaint ref by [place] [place] HPI Staff This is a 72 year old female who presents today for a referral by [place] for complaints of Iron deficiency anemia. Last EGD/Colon w/ Dr dAams 09/23/19 Bile reflux as well as sigmoid diverticulosis. Labs 04/11/23 Hemiglobin-9.5 Hematocrit- 32.1 Ferritin 14.0 Iron- 39 History of Present Illness pt with ID anemia was found to be low around Esther time a new issue for her no family or personal hx of polyps or cancer on iron infusion and pills Hx of PUD- was also asymptomatic I have reviewed HPI staff note, most recent labs and imaging, more than 30 minutes spent reviewing the chart, during encounter, placing orders and counseling the patient. Review of Systems PHQ Score Initial Depression Screen Score: 0 SCORE All systems reviewed, negative except as mentioned above Physical Exam Vitals & Measurements HR: 89(Peripheral) RR: 16 BP: 135/89 HT: 62 in HT: 158 cm WT: 70.8 kg WT: 155.76 lb BMI: 28.36 General: alert, no acute distress HEENT: atraumatic normocephalic Cardiovascular: regular rate and rhythm, normal peripheral perfusion Respiratory: Lungs CTA, respirations non labored Extremities: no deformity, no trauma Abdomen: Benign, soft, nontender nondistended Assessment/Plan 1. Iron deficiency anemia, unspecified (D50.9: Iron deficiency anemia, unspecified) Ordered: Colonoscopy (Hospital Procedure) EGD Endoscopy (Hospital Procedure) 2. Bile reflux gastritis (K29.60: Other gastritis without bleeding) Ordered: Colonoscopy (Hospital Procedure) EGD Endoscopy (Hospital Procedure) 3. GERD (gastroesophageal reflux disease) (K21.9: Gastro-esophageal reflux disease without esophagitis) Ordered: Colonoscopy (Hospital Procedure) EGD Endoscopy (Hospital Procedure) 4. H/O gastric ulcer (Z87.19: Personal history of other diseases of the digestive system) Ordered: Colonoscopy (Hospital Procedure) EGD Endoscopy (Hospital Procedure) 5. History of gastric ulcer (Z87.11: Personal history of peptic ulcer disease) Ordered: Colonoscopy (Hospital Procedure) EGD Endoscopy (Hospital Procedure) 6. Diverticulosis of large intestine without perforation or abscess without bleeding (K57.30: Diverticulosis of large intestine without perforation or abscess without bleeding) Ordered: Colonoscopy (Hospital Procedure) EGD Endoscopy (Hospital Procedure) Reflux of urine (N13.70: Vesicoureteral-reflux, unspecified) Agree with iron supplementations and the infusion Will upper endoscopy with small bowel biopsies to evaluate anemia Schedule colonoscopy with TI evaluation to evaluate anemia Schedule CT scan of the abdomen to evaluate left lower quadrant abdominal pain Follow-up No qualifying data available Problem List/Past Medical History Ongoing Abdominal bloating Acute allergic rhinitis due to pollen Arthritis Asthma Asymptomatic microscopic hematuria Benign essential hypertension Bilateral cataracts Cervical spondylosis Chronic tension headache Duodenal stricture Epigastric pain GERD (gastroesophageal reflux disease) Graves disease H/O gastric ulcer History of gastric ulcer Hyperlipidemia Hypertension Hypothyroidism, acquired, autoimmune Incomplete bladder emptying Lumbar spondylosis Microscopic hematuria Migraine Mild persistent asthma Mixed incontinence Nocturia Osteopenia of lumbar spine Personal history of colonic polyps Recurrent UTI Urethral caruncle Urinary tract infection Historical Reflux of urine Procedure/Surgical History Colonoscopy (09/07/2019), EGD - Esophagogastroduodenoscop y (09/07/2019), Colonoscopy (01/16/2015), EGD - Esophagogastroduodenoscop y (01/16/2015), EGD - Esophagogastroduodenoscop y (08/17/2011), EGD - Esophagogastroduodenoscop y (05/17/2011), Laparoscopic cholecystectomy (06/16/2010), Colonoscopy (01/16/2010), Cataracts, section, Foot, Rotator cuff repair, Tubal ligation. Medications amLODIPine 5 mg Tab atorvastatin 10 mg Tab, 10 mg= 1 tab(s), Oral, Daily EpiPen 2-Giovani, 0.3 mg, IntraMuscular, Once estradiol 0.1 mg/g Vag Crm, See Instructions famotidine 20 mg Tab, Oral, BID fluticasone 0.05 mg/inh Nasal Flippin, 2 spray(s), Nasal, Daily Fosamax 70 mg Tab, 70 mg= 1 tab(s), Oral, qWeek levothyroxine 88 mcg (0.088 mg) Tab, 88 mcg= 1 tab(s), Oral, Daily Macrobid 100 mg Cap, 100 mg= 1 cap(s), Oral, As Directed, 3 refills Pantoprazole [address] Tab, 40 mg= 1 tab(s), Oral, Daily, 1 refills ProAir HFA 90 mcg/inh inhalation aerosol, 2 puff(s), Inhalation, q4hr, PRN Trelegy Ellipta, Inhalation, Daily Trelegy Ellipta 200 mcg-62.5 mcg-25 mcg/inh inhalation powder, Inhalation, Daily Vitamin D3 Allergies Bee Stings (SOB - Shortness of breath, Hives) contrast media (iodine-based) (SOB - Shortness of breath, Hives) penicillin (Rash) sulfa drugs (Angio-oedema) Social History Alcohol - Denies Alcohol Use, 09/04/2019 Substance Abuse - Denies (more content not included)... [facility] Comment on above: Result Comment: Elec tronically Signed By: Tho VILLEGAS, Del Duckworth\.br\Date and Time Signed: 05/14/23 13:07 EST Physician Referralon 024 Physician Referral [id number] [facility] Ambulatory Visit Summaryon 1 04-23-2022 Ambulatory Visit Summary MUNIRA CHESTER :1950 Visit Date:02/20/2023 Ambulatory Visit Instructions Your Diagnosis Mixed incontinence Recurrent UTI Urethral caruncle Tests Performed Urnls Dip Stick Auto w/o Microscopy POC [id number] Your Care Team Attending Physician - Dewayne VILLEGAS, Asuncion [place] Primary Care Physician - ANDREA GOLDEN DO This Is Your Medications List estradiol topical (estradiol 0.1 mg/g Vag Crm) nitrofurantoin (Macrobid 100 mg Cap) Contact prescribing physician if questions or concerns albuterol (ProAir HFA 90 mcg/inh inhalation aerosol) alendronate (Fosamax 70 mg Tab) amlodipine (amLODIPine 5 mg Tab) atorvastatin (atorvastatin 10 mg Tab) epinephrine (EpiPen 2-Giovani) famotidine (famotidine 20 mg Tab) fluticasone nasal (fluticasone 0.05 mg/inh Nasal Flippin) fluticasone/umeclidinium/ vilanterol (Trelegy Ellipta 200 mcg-62.5 mcg-25 mcg/inh inhalation powder) levothyroxine (levothyroxine 88 mcg (0.088 mg) Tab) pantoprazole (Pantoprazole [address] Tab) Procedures Performed Colonoscopy (09/07/2019), EGD - Esophagogastroduodenoscop y (09/07/2019), Colonoscopy (01/16/2015), EGD - Esophagogastroduodenoscop y (01/16/2015), EGD - Esophagogastroduodenoscop y (08/17/2011), EGD - Esophagogastroduodenoscop y (05/17/2011), Laparoscopic cholecystectomy (06/16/2010), Colonoscopy (01/16/2010), Cataracts, section, Foot, Rotator cuff repair, Tubal ligation. Discharge Vitals Height 158 cm Height 62 in Weight 68.5 kg Weight 150.7 lb BMI 27.44 What to do next Scheduled Follow-Up Appointments Saturday 8:00 AM EST With: Dewayne VILLEGAS, Asuncion [place] Where: [facility] Patient Educationon 02-21-20 Patient Education Obstetrics and Gynec ology Pelvic Floor Dysfunction, Female Pelvic floor dysfunction [...] pelvic muscle tension or spasms. ? Take [id number] and prescription medicines only as told by [...] movement i (more content not included)... Normal [facility] Urology Office/Clinic Noteon 02-20-2023 Urology Office/Clinic Note [...] Dewayne VILLEGAS, Asuncion [place], URL, [facility] [address] [place] [address]- [phone] Additional Instructions: 1 yr Patient Education Pelvic [...] stricture Epigast (more content not included)... Normal [facility] Comment on above: Result Comment: Elec tronically Signed By: Asuncion Buchanan MD\.br\Date and Time Signed: 02/20/23 18:21 EST\.br\Electronically Co-Signed By: Kimmie Lemus\.br\Date and Time Co-Signed: 02/20/23 09:53 EST POINT OF CARE GLUCOSEon 03-18 Glucose [Mass/Vol] 94 mg/dL Normal 74-106 [facility] Comment on above: Performed By: #### P OCGLUC #### [id number] [place] [address]Dr. Dwight Mario Glucose [Mass/Vol] 106 mg/dL Normal 74-106 The Comment on above: Performed By: #### P OCGLUC #### [id number] [place] [address]Dr. Dwight Mario Covid-19 PCR (CVDTB)on 03-18 SARS-CoV-2 (COVID-19) RNA GIOVANI+probe Ql (Unsp spec) Not detected Normal NOT DETECTED The Comment on above: Result Comment: This test is not yet approved or cleared by the [place] FDA. When there are no FDA-approved or cleared tests available, and other criteria are met, FDA can make tests available under an emergency access mechanism called an Emergency Use Authorization (EUA). The EUA for this test is supported by the [place] [employer] and Human Service's (HHS's) declaration [...] SARS-CoV-2. Performed By: #### C VDTBH #### Laboratory [address] [place] [address] Dr. Dwight Mario PROF CHEM 8 (BAS METB)on Anion gap [Moles/Vol] 13.4 mmol/L Normal Th [facility] Comment on above: Performed By: #### B MP #### Laboratory [address] [place] [address] Dr. Dwight Mario Calcium [Mass/Vol] 9.1 mg/dL Normal 8.5-10.1 [facility] Comment on above: Performed By: #### B MP #### Laboratory [address] [place] [address] Dr. Dwight Mario Chloride [Moles/Vol] 107 mmol/L Normal 98-107 [facility] Comment on above: Performed By: #### B MP #### Laboratory [address] [place] [address] Dr. Dwight Mario CO2 [Moles/Vol] 26.5 mmol/L Normal 21.0-32.0 [facility] Comment on above: Performed By: #### B MP #### Laboratory [address] [place] [address] Dr. Dwight Mario Creatinine [Mass/Vol] 0.76 mg/dL Normal 0.55-1.02 [facility] Comment on above: Performed By: #### B MP #### Laboratory [address] [place] [address] Dr. Dwight Mario EGFR-AF HONDURAN >60 Normal >=60 [facility] Comment on above: Performed By: #### B MP #### Laboratory [address] [place] [address] Dr. Dwight Mario EGFR-NON AF HONDURAN >60 Normal >=60 [facility] Comment on above: Performed By: #### B MP #### Laboratory [address] [place] [address] Dr. Dwight Mario Glucose [Mass/Vol] 108 mg/dL Critically high 74-106 [facility] Comment on above: Performed By: #### B MP #### Laboratory [address] [address] [address] Dwight Mario Potassium [Moles/Vol] 3.9 mmol/L Normal 3.5-5.1 [facility] Comment on above: Performed By: #### B MP #### Laboratory [address] [address] [address] Dwight Mario Sodium [Moles/Vol] 143 mmol/L Normal 136-145 [facility] Comment on above: Performed By: #### B MP #### Laboratory [address] [place] [address] Dr. Dwight Mario Urea nitrogen [Mass/Vol] 25.0 mg/dL Critically high 7.0-18 .0 [facility] Comment on above: Performed By: #### B MP #### Laboratory [address] [place] [address] Dr. Dwight Mario Urea nitrogen/Creatinine [Mass ratio] 32.9 mg/mg Normal [facility] Comment on above: Performed By: #### B MP #### Laboratory [address] [place] [address] Dr. Dwight Mario CBC AUTO DIFFon 01-29-2022 BASO # 0.0 103/ul Normal 0.0-0.1 [facility] Comment on above: Performed By: #### C BC #### Laboratory [address] [place] [address] Dr. Dwight Mario Basophils/100 WBC (Bld) 0.4 % Normal 0.2-2.0 [facility] Comment on above: Performed By: #### C BC #### Laboratory [address] [place] [address] Dr. Dwight Mario EO # 0.3 103/ul Normal 0.0-0.7 [facility] Comment on above: Performed By: #### C BC #### Laboratory [address] [place] [address] Dr. Dwight Mario Eosinophils/100 WBC (Bld) 2.8 % Normal 0.9-7.0 [facility] Comment on above: Performed By: #### C BC #### Laboratory [address] [place] [address] Dr. Dwight Mario Erythrocyte distribution width (RBC) [Ratio] 14.0 % Normal 11.0-15.0 [facility] Comment on above: Performed By: #### C BC #### Laboratory [address] [place] [address] Dr. Dwight Mario Hematocrit (Bld) [Volume fraction] 38.3 % Normal 36.0-48.0 [facility] Comment on above: Performed By: #### C BC #### Laboratory [address] [place] [address] Dr. Dwight Mario Hemoglobin (Bld) [Mass/Vol] 12.6 g/dL Normal 12.0-16.0 [facility] Comment on above: Performed By: #### C BC #### Laboratory [address] [place] [address] Dr. Dwight Mario IG # 0.03 10e3/ul Normal 0.00-0.03 [facility] Comment on above: Performed By: #### C BC #### Laboratory [address] [place] [address] Dr. Dwight Mario IG % 0.3 % Normal 0.0-0.5 [facility] Comment on above: Performed By: #### C BC #### Laboratory [address] [place] [address] Dr. Dwight Mario LYMPH # 2.9 103/ul Normal 1.2-3.8 The Comment on above: Performed By: #### C BC #### Laboratory [address] [place] [address] Dr. Dwight Mario Lymphocytes/100 WBC (Bld) 29.0 % Normal 20.5-60.0 [facility] Comment on above: Performed By: #### C BC #### Laboratory [address] [place] [address] Dr. Dwight Mario MANUAL DIFF REQ NO Normal [facility] Comment on above: Performed By: #### C BC #### Laboratory [address] [place] [address] Dr. Dwight Mario MCH (RBC) [Entitic mass] 30.3 pg Normal 26.7-34.0 [facility] Comment on above: Performed By: #### C BC #### Laboratory [address] [place] [address] Dr. Dwight Mario MCHC (RBC) [Mass/Vol] 32.9 g/dL Normal 29.9-35.2 [facility] Comment on above: Performed By: #### C BC #### Laboratory [address] [place] [address] Dr. Dwight Mario MCV (RBC) [Entitic vol] 92.1 fL Normal 81.0-99.0 [facility] Comment on above: Performed By: #### C BC #### Laboratory [address] [place] [address] Dr. Dwight Mario MONO # 0.8 103/ul Normal 0.3-0.8 [facility] Comment on above: Performed By: #### C BC #### Laboratory [address] [place] [address] Dr. Dwight Mario Monocytes/100 WBC (Bld) 7.9 % Normal 1.7-12.0 [facility] Comment on above: Performed By: #### C BC #### Laboratory [address] [place] [address] Dr. Dwight Mario NEUT # 5.9 103/ul Normal 1.4-6.5 [facility] Comment on above: Performed By: #### C BC #### Laboratory [address] [place] [address] Dr. Dwight Mario Neutrophils/100 WBC (Bld) 59.6 % Normal 43.0-75.0 [facility] Comment on above: Performed By: #### C BC #### Laboratory [address] [place] [address] Dr. Dwight Mario Platelet mean volume (Bld) [Entitic vol] 9.4 fL Critically low 9.5-13.5 [facility] Comment on above: Performed By: #### C BC #### Laboratory [address] [address] [address] Dwight Mario PLT 385 103/ul Normal 150-450 [facility] Comment on above: Performed By: #### C BC #### Laboratory [address] [address] [address] Dwight Maroi RBC 4.16 106/ul Critically low 4.20-5.40 [facility] Comment on above: Performed By: #### C BC #### Laboratory [address] [address] [address] Dwight Mario WBC 10.0 103/ul Normal 4.0-11.0 [facility] Comment on above: Performed By: #### C BC #### Laboratory [address] [address] [address] Dwight Mario LIPID PROFILEon 01-29-2022 CHOL-HDL RATIO NORM SEE BELOW Normal [facility] Comment on above: Result Comment: 3.3 - 4.4 LOW RISK 4.4 - 7.1 AVERAGE RISK 7.1 - 11.0 MODERATE RISK >11.0 HIGH RISK Performed By: #### L IPID, BMP, ALT, TSH #### [id number] [address]DrJose Mario Cholesterol [Mass/Vol] 184 mg/dL Normal <=200 [facility] Comment on above: Performed By: #### L IPID, BMP, ALT, TSH #### [id number] [id number] Mario Cholesterol in HDL [Mass/Vol] 61 mg/dL Critically high 40-60 [facility] Comment on above: Performed By: #### L IPID, BMP, ALT, TSH #### [id number] [id number] Mario Cholesterol in LDL [Mass/Vol] 96.0 mg/dL Normal [facility] Comment on above: Performed By: #### L IPID, BMP, ALT, TSH #### [id number] [address]DrJose Mario Cholesterol.total/Cholest carmelo in HDL [Mass ratio] 3.0 {ratio} Normal [facility] Comment on above: Performed By: #### L IPID, BMP, ALT, TSH #### [id number] [address]Dr. Dwight Mario HDL NORMAL > or = 60 mg/dl - LO W CARDIOVASCULAR RISK <40 mg/dl - HIGH CARDIOVASCULAR RISK Normal [facility] Comment on above: Performed By: #### L IPID, BMP, ALT, TSH #### [id number] [address]Dr. Dwight Mario LDL CALC NORMAL SEE BELOW Normal [facility] Comment on above: Result Comment: <100 mg/dl OPTIMAL 100 - 129 mg/dl NEAR OR ABOVE OPTIMAL 130 - 159 mg/dl BORDERLINE HIGH 160 - 189 mg/dl HIGH >190 mg/dl VERY HIGH Performed By: #### L IPID, BMP, ALT, TSH #### [id number] [address]Dr. Dwight Mario Triglyceride [Mass/Vol] 135 mg/dL Normal <=150 [facility] Comment on above: Performed By: #### L IPID, BMP, ALT, TSH #### [id number] [address]Dr. Dwight Mario VLDL CALC 27.0 mg/dL Normal [facility] Comment on above: Performed By: #### L IPID, BMP, ALT, TSH #### [id number] [address]Dr. Dwight Mario MG MAMM SCREEN 3D ALLEGRA CADon 01-29-2022 MG MAMM SCREEN 3D ALLEGRA CAD Patient: MUNIRA MONTANO Exam Date: 01/29/2022 : 1950 Gender:F Ordering : DR ANDREA GOLDEN D.O. Admission #: [id number] Family : DR. MADISON BURNS D.O. Order #: [id number] CLICK HERE TO VIEW EXAM RADIOLOGY REPORT [...] breast cancer at age 61. LOCATION: The BREAST COMPOSITION: Scattered areas fibroglandular density. FINDINGS: [...] LUMP SHOULD BE BIOPSIED. Dictated by: Campos Erazo MD on 01/29/2022 at 15:23 Approved by: Campos Erazo MD on 01/29/2022 at 15:25 Normal The PROF CHEM 8 (BAS METB)on Anion gap [Moles/Vol] 9.7 mmol/L Normal [facility] Comment on above: Performed By: #### L IPID, BMP, ALT, TSH #### [id number] [id number]. Dwight Mario Calcium [Mass/Vol] 8.9 mg/dL Normal 8.5-10.1 The Comment on above: Performed By: #### L IPID, BMP, ALT, TSH #### [id number] [id number]. Dwight Mario Chloride [Moles/Vol] 105 mmol/L Normal 98-107 The Comment on above: Performed By: #### L IPID, BMP, ALT, TSH #### [id number] [id number]. Dwight Mario CO2 [Moles/Vol] 27.3 mmol/L Normal 21.0-32.0 The Comment on above: Performed By: #### L IPID, BMP, ALT, TSH #### [id number] [address]Dr. Dwight Mario Creatinine [Mass/Vol] 0.80 mg/dL Normal 0.55-1.02 [facility] Comment on above: Performed By: #### L IPID, BMP, ALT, TSH #### [id number] [place], [place] [address]Dr. Dwight Mario EGFR-AF HONDURAN >60 Normal >=60 [facility] Comment on above: Performed By: #### L IPID, BMP, ALT, TSH #### [id number] [place], [place] [address]Dr. Dwight Mario EGFR-NON AF HONDURAN >60 Normal >=60 [facility] Comment on above: Performed By: #### L IPID, BMP, ALT, TSH #### [id number] [place], [place] [address]Dr. Dwight Mario Glucose [Mass/Vol] 107 mg/dL Critically high 74-106 [facility] Comment on above: Performed By: #### L IPID, BMP, ALT, TSH #### [id number] [place], [place] [address]Dr. Dwight Mario Potassium [Moles/Vol] 4.0 mmol/L Normal 3.5-5.1 [facility] Comment on above: Performed By: #### L IPID, BMP, ALT, TSH #### [id number] [place], [place] [address]Dr. Dwight Mario Sodium [Moles/Vol] 138 mmol/L Normal 136-145 The Comment on above: Performed By: #### L IPID, BMP, ALT, TSH #### [id number] [place], [place] [address]Dr. Dwight Mario Urea nitrogen [Mass/Vol] 20.0 mg/dL Critically high 7.0-18 .0 [facility] Comment on above: Performed By: #### L IPID, BMP, ALT, TSH #### [id number] [place], [place] [address]Vw. Dwight Mario Urea nitrogen/Creatinine [Mass ratio] 25.0 mg/mg Normal The Comment on above: Performed By: #### L IPID, BMP, ALT, TSH #### [id number] [place], [place] [address]Wo. Dwight Mario SGPTon 01-29-2022 ALT [Catalytic activity/Vol] 26 U/L Normal 14-59 The Comment on above: Performed By: #### L IPID, BMP, ALT, TSH #### [id number] [place], [place] [address]Mc. Dwight Mario TSHon 01-29-2022 TSH 5.901 uIU/mL Critically high 0.358-3.74 0 [facility] Comment on above: Performed By: #### L IPID, BMP, ALT, TSH #### [id number] [id number][address] Dwight Mario XR shoulder LT min 2V*on XR shoulder LT min 2V* [facility] Main [place] [address] [place] [address] XRay Report Signed Patient: Munira Chester MR#: [id number] : 1950 Acct:[id number] Age/Sex: 71 / F ADM Date: 10/10/21 [place] [facility] [place] Type: [facility] Attending Dr: Espinoza Ruiz MD Copies to: Espinoza Ruiz MD Ordering Provider: Espinoza Ruiz MD Date of Service: 10/10/21 XR/XR shoulder [...] Abelino Prado M.D.10/10/2021 1:25 PM Dictation Location: [address] [address] Transcribed By: [facility] 10/10/21 1325 Dictated By: Abelino Prado II, MD 10/10/21 1324 Signed By: 10/10/21 1325 [facility] MRI SHOULDER LT WO CONon MRI SHOULDER LT WO CON EXAM: MRI SHOULDE R LT WO CON REASON FOR EXAM: Strain [...] by: YOVANA COTTRELL Date: 2021-10-03 15:02 Normal [facility] Vital Signs Date Time Vital Sign Value Performing Clinician Facility 06-21-2023 14:42-0400 Body height 154.94 cm [facility] 06-21-2023 14:42-0400 Body mass index (BMI) [Ratio] 29.3 kg/m2 [facility] 06-21-2023 14:42-0400 Body weight 70.53 kg [facility] 06-21-2023 14:42-0400 Diastolic blood pressure 79 mm[Hg] [facility] 06-21-2023 14:42-0400 Heart rate 81 /min [facility] 06-21-2023 14:42-0400 Respiratory rate 20 /min [facility] 06-21-2023 14:42-0400 SaO2% (BldA) [Mass fraction] 98 % [facility] 06-21-2023 14:42-0400 Systolic blood pressure 138 mm[Hg] [facility] 05-30-2023 08:08-0400 Blood Pressure Location Del Nettles [facility] 05-30-2023 08:08-0400 Diastolic blood pressure 78 mm[Hg] Del Nettles [facility] 05-30-2023 08:08-0400 Heart rate 80 /min Del Nettles [facility] 05-30-2023 08:08-0400 Respiratory rate 16 /min Del Nettles [facility] 05-30-2023 08:08-0400 Systolic blood pressure 126 mm[Hg] Mohamad Mouchli [facility] 05-22-2023 09:15-0500 Diastolic blood pressure 75 mm[Hg] Mohamad Mouchli [facility] 05-22-2023 09:15-0500 Heart rate 62 /min Mohamad Mouchli [facility] 05-22-2023 09:15-0500 Mean blood pressure 87 mm[Hg] Mohamad Mouchli [facility] 05-22-2023 09:15-0500 Respiratory rate 19 /min Mohamad Mouchli [facility] 05-22-2023 09:15-0500 SaO2% (BldA) [Mass fraction] 96 % Mohamad Mouchli [facility] 05-22-2023 09:15-0500 Systolic blood pressure 112 mm[Hg] Mohamad Mouchli [facility] 05-22-2023 09:05-0500 Diastolic blood pressure 71 mm[Hg] Mohamad Mouchli [facility] 05-22-2023 09:05-0500 Heart rate 65 /min Mohamad Mouchli [facility] 05-22-2023 09:05-0500 Mean blood pressure 84 mm[Hg] Mohamad Mouchli [facility] 05-22-2023 09:05-0500 Respiratory rate 10 /min Mohamad Mouchli [facility] 05-22-2023 09:05-0500 SaO2% (BldA) [Mass fraction] 95 % Mohamad Mouchli [facility] 05-22-2023 09:05-0500 Systolic blood pressure 111 mm[Hg] Mohamad Mouchli [facility] 05-22-2023 09:00-0500 Diastolic blood pressure 70 mm[Hg] Mohamad Mouchli [facility] 05-22-2023 09:00-0500 Heart rate 66 /min Mohamad Mouchli [facility] 05-22-2023 09:00-0500 Respiratory rate 15 /min Mohamad Mouchli [facility] 05-22-2023 09:00-0500 SaO2% (BldA) [Mass fraction] 99 % Mohamad Mouchli [facility] 05-22-2023 09:00-0500 Systolic blood pressure 113 mm[Hg] Mohamad Mouchli [facility] 05-22-2023 08:50-0500 Body temperature 97.52 [degF] Mohamad Mouchli [facility] 05-22-2023 08:45-0500 Respiratory rate 24 /min Mohamad Mouchli [facility] 05-22-2023 08:40-0500 Respiratory rate 24 /min Mohamad Mouchli [facility] 05-22-2023 08:35-0500 Respiratory rate 22 /min Mohamad Mouchli [facility] 05-22-2023 07:14-0500 Blood Pressure Location Mohamad Mouchli [facility] 05-22-2023 07:14-0500 Body temperature 97.88 [degF] Mohamad Mouchli [facility] 05-14-2023 12:52-0500 Blood Pressure Location Mohliud Antonuchli [facility] 05-14-2023 12:52-0500 Diastolic blood pressure 89 mm[Hg] Mohliud Mouchli [facility] 05-14-2023 12:52-0500 Heart rate 89 /min Mohliud Mouchli [facility] 05-14-2023 12:52-0500 Respiratory rate 16 /min Dexrex Geard Five Apesuchli [facility] 05-14-2023 12:52-0500 Systolic blood pressure 135 mm[Hg] SurgeryEduliud Five Apesuchli [facility] 04-16-2023 09:00-0500 Body height 154.94 cm Andrea [employer] Other [facility] 04-16-2023 09:00-0500 Body mass index (BMI) [Ratio] 30.12 kg/m2 Andrea Ball Other [facility] Other 04-16-2023 09:00-0500 Body weight 72.3 kg Andrea Ball Other [facility] 04-16-2023 09:00-0500 Diastolic blood pressure 86 mm[Hg] Andrea Ball Other [facility] 04-16-2023 09:00-0500 Respiratory rate 20 /min Andrea Ball Other [facility] Other 04-16-2023 09:00-0500 SaO2% (BldA) [Mass fraction] 95 % Andrea Ball Other [facility] Other 04-16-2023 09:00-0500 Systolic blood pressure 150 mm[Hg] Andrea Ball Other [facility] 02-18-2023 11:45-0500 Body height 154.94 cm Andrea Ball Other [employer] Other 02-18-2023 11:45-0500 Body mass index (BMI) [Ratio] 29.4 kg/m2 Andrea Ball Other [employer] Other 02-18-2023 11:45-0500 Body weight 70.58 kg Andrea Ball Other [employer] Other 02-18-2023 11:45-0500 Diastolic blood pressure 80 mm[Hg] Andrea Ball Other [employer] Other 02-18-2023 11:45-0500 Respiratory rate 12 /min Andrea Ball Other [employer] Other 02-18-2023 11:45-0500 SaO2% (BldA) [Mass fraction] 98 % Andrea Ball Other [employer] Other 02-18-2023 11:45-0500 Systolic blood pressure 148 mm[Hg] Andrea Ball Other [employer] Other 01-25-2023 08:30-0500 Body height 154.94 cm Andrea Ball Other [employer] Other 01-25-2023 08:30-0500 Body mass index (BMI) [Ratio] 29.59 kg/m2 Andrea Ball Other [employer] Other 01-25-2023 08:30-0500 Body weight 71.03 kg Andrea Ball Other [employer] Other 01-25-2023 08:30-0500 Diastolic blood pressure 77 mm[Hg] Andrea Ball Other [employer] Other 01-25-2023 08:30-0500 Respiratory rate 12 /min Andrea Ball Other [employer] Other 01-25-2023 08:30-0500 Systolic blood pressure 118 mm[Hg] Andrea Ball Other [employer] Other 12-12-2022 13:45-0400 Body height 154.94 cm Andrea Ball Other [employer] Other 12-12-2022 13:45-0400 Body mass index (BMI) [Ratio] 29.36 kg/m2 Andrea Ball Other [employer] Other 12-12-2022 13:45-0400 Body weight 70.49 kg Andrea Ball Other [employer] Other 12-12-2022 13:45-0400 Diastolic blood pressure 79 mm[Hg] Andrea Ball Other [employer] Other 12-12-2022 13:45-0400 Respiratory rate 12 /min Anrdea Ball Other [employer] Other 12-12-2022 13:45-0400 SaO2% (BldA) [Mass fraction] 98 % Andrea Ball Other [employer] Other 12-12-2022 13:45-0400 Systolic blood pressure 130 mm[Hg] Andrea Ball Other [employer] Other 11-01-2022 15:05-0400 Body height 154.94 cm Shannan Webster Other [employer] Other 11-01-2022 15:05-0400 Body mass index (BMI) [Ratio] 28.34 kg/m2 Shannan Webster Other [employer] Other 11-01-2022 15:05-0400 Body temperature 96.2 [degF] Shannan Webster Other [employer] Other 11-01-2022 15:05-0400 Body weight 68.04 kg Shannan Webster Other [employer] Other 11-01-2022 15:05-0400 Diastolic blood pressure 69 mm[Hg] Shannan Webster Other [employer] Other 11-01-2022 15:05-0400 Respiratory rate 18 /min Shannan Webster Other [employer] Other 11-01-2022 15:05-0400 SaO2% (BldA) [Mass fraction] 99 % Shannan Webster Other [employer] Other 11-01-2022 15:05-0400 Systolic blood pressure 130 mm[Hg] Shannan Webster Other [employer] Other 03-05-2022 15:00-0500 Body height 162.56 cm Luma Chirinos Other [employer] Other 12-01-2021 09:55-0400 Blood Pressure Location Asuncion Lue [facility] 12-01-2021 09:55-0400 Diastolic blood pressure 89 mm[Hg] Asuncion Lue [facility] 12-01-2021 09:55-0400 Heart rate 81 /min Asuncion Buchanan [facility] 12-01-2021 09:55-0400 Systolic blood pressure 140 mm[Hg] Asuncion Buchanan [facility] 10-10-2021 10:15-0400 Body height 162.56 cm Espinoza Ruiz Other [employer] Other 10-10-2021 10:15-0400 Body mass index (BMI) [Ratio] 24.89 kg/m2 Espinoza Olexa Other [employer] Other 10-10-2021 10:15-0400 Body weight 65.77 kg Espinoza Loraxa Other [employer] Other Encounters Encounter Date Encounter Type Care Provider Facility Start: 06-21-2023 End: 06-21-2023 ambulatory [facility] Work Phone: Start: 06-21-2023 End: 06-21-2023 Patient encounter procedure [facility] Work Phone: Start: 05-30-2023 End: 05-31-2023 ambulatory Del Nettles Facility:[facility] Start: 05-30-2023 End: 05-30-2023 Patient encounter procedure Del Nettles [facility] Start: 05-29-2023 End: 05-29-2023 ambulatory CHARITO VASQUEZ Not Available Start: 05-23-2023 Non-patient / Non-visit [facility] [employer] Work Phone: Start: 05-22-2023 End: 05-23-2023 ambulatory Del Nettles Facility:[facility] Start: 05-22-2023 End: 05-22-2023 Patient encounter procedure Del Nettles [facility] Start: 05-16-2023 End: 05-16-2023 ambulatory CHARITO VASQUEZ Not Available Start: 05-14-2023 End: 05-15-2023 ambulatory Del Nettles Facility:[facility] Start: 05-14-2023 End: 05-14-2023 Patient encounter procedure Del Nettles [facility] Start: 04-22-2023 Bamboo flowsdanial brasher MD Work Phone: [facility] Start: 04-22-2023 Bamboo flowsdanial brasher MD Work Phone: [facility] Start: 04-22-2023 Telephone encounter Andrea WALLACE [facility] Start: 04-22-2023 End: 04-22-2023 ambulatory CHARITO Calabrese [employer] Other Start: 04-19-2023 End: 04-19-2023 ambulatory Andrea Golden Other [employer] Other Start: 04-19-2023 Telephone encounter Andrea WALLACE [facility] Start: 04-18-2023 Telephone encounter Andrea [place] MADISON [facility] Start: 04-18-2023 End: 04-18-2023 ambulatory Andrea Golden Other [employer] Other Start: 04-16-2023 End: 04-16-2023 ambulatory Andrea Golden Other [employer] Other Start: 04-16-2023 Office outpatient vi sit 25 minutes Andrea Golden [facility] Start: 04-16-2023 End: 04-16-2023 Patient encounter procedure [facility] Start: 04-04-2023 End: 04-04-2023 ambulatory Andrea Golden Other [employer] Other Start: 04-04-2023 Telephone encounter Andrea WALLACE [facility] Start: 03-08-2023 End: 03-08-2023 ambulatory Andrea Golden Other [employer] Other Start: 03-08-2023 Telephone encounter Andrea WALLACE [facility] Start: 03-07-2023 End: 03-07-2023 ambulatory ANA VALIENTE Not Available Start: 03-06-2023 Telephone encounter Andrea WALLACE [facility] Start: 03-06-2023 End: 03-06-2023 ambulatory MADISON BURNS [employer] Other Start: 02-25-2023 End: 02-25-2023 ambulatory Andrea Golden Other [employer] Other Start: 02-25-2023 Telephone encounter Andrea WALLACE [facility] Start: 02-20-2023 End: 02-21-2023 ambulatory Asuncion Buchanan Facility:[facility] Start: 02-20-2023 End: 02-20-2023 Patient encounter procedure Asuncion Buchanan [facility] Start: 02-18-2023 End: 02-18-2023 ambulatory Andrea Golden Other [employer] Other Start: 02-18-2023 Office outpatient vi sit 15 minutes Andrea Golden [facility] Start: 02-05-2023 End: 02-05-2023 ambulatory Andrea Golden Other [employer] Other Start: 02-05-2023 Telephone encounter Andrea Golden [facility] Start: 01-31-2023 End: 01-31-2023 ambulatory Andrea Golden Other [employer] Other Start: 01-31-2023 Telephone encounter Andrea Golden [facility] Start: 01-29-2023 End: 01-29-2023 ambulatory Andrea Golden Other [employer] Other Start: 01-29-2023 Telephone encounter Anrdea Golden [facility] Start: 01-25-2023 End: 01-25-2023 ambulatory Andrea Golden Other [employer] Other Start: 01-25-2023 Patient encounter procedure Andrea Golden [facility] Start: 01-25-2023 Telephone encounter Andrea Golden [facility] Start: 12-12-2022 End: 12-12-2022 ambulatory Andrea Golden Other [employer] Other Start: 12-12-2022 Office outpatient vi sit 15 minutes Andrea Golden [facility] Start: 11-07-2022 End: 11-07-2022 ambulatory Andrea Golden Other [employer] Other Start: 11-07-2022 Telephone encounter Andrea Golden [facility] Start: 11-01-2022 End: 11-01-2022 ambulatory Shannan Webster Other [employer] Other Start: 11-01-2022 Office outpatient vi sit 25 minutes Shannan Webster [facility] Start: 06-27-2022 End: 06-28-[address] JEROME ESPINOSA Facility:[facility] Start: 06-04-2022 End: 06-04-2022 ambulatory Andrea Golden Other [employer] Other Start: 06-04-2022 Telephone encounter Andrea Golden [facility] Start: 05-17-2022 End: 05-18-[address] CAMPOS ERAZO Facility:[facility] Start: 04-26-2022 End: 04-27-[address] JEROME ESPINOSA Facility:[facility] Start: 04-25-2022 End: 04-25-2022 ambulatory Andrea Golden Other [employer] Other Start: 04-25-2022 Telephone encounter Andrea WALLACE [facility] Start: 04-10-2022 End: 04-10-2022 ambulatory Andrea Golden Other [employer] Other Start: 04-10-2022 Telephone encounter Andrea WALLACE [facility] Start: 04-07-2022 Encounter for preprocedural cardiovascular examination BASHIR Ramos [facility] Start: 04-07-2022 Encounter for preprocedural laboratory examination [facility] Start: 04-06-2022 End: 04-06-2022 ambulatory Andrea Golden Other [employer] Other Start: 04-06-2022 Telephone encounter Andrea WALLACE [facility] Start: 04-05-2022 End: 04-05-[address] JEROME ESPINOSA Facility:[facility] Start: 04-02-2022 End: 04-03-2022 ambulatory BASHIR DANIELLE Facility:[facility] Start: 04-02-2022 End: 04-03-2022 Encounter for preprocedural cardiovascular examination BASHIR DANIELLE Facility:[facility] Start: 03-28-2022 End: 03-29-[address] JEROME ESPINOSA Facility:[facility] Start: 03-20-2022 End: 03-21-[address] ANDREA GOLDEN Facility:[facility] Start: 03-12-2022 End: 03-12-[address] JEROME ESPINOSA Facility:[facility] Start: 03-05-2022 End: 03-05-2022 ambulatory Luma Chirinos Other [employer] Other Start: 03-05-2022 Office outpatient vi sit 15 minutes Luma Chirinos [facility] Start: 01-29-2022 End: 01-30-[address] ANDREA GOLDEN Facility:[facility] Start: 01-18-2022 Adult health examination Shannan Webster Other [employer] Other Start: 12-01-2021 End: 12-01-2021 Patient encounter procedure Asuncion Buchanan [facility] Start: 10-10-2021 End: 10-10-2021 ambulatory Espinoza Ruiz Other [facility] Other Start: 10-10-2021 Office outpatient vi sit 25 minutes Espinoza Ruiz [facility] [place] [facility] Start: 10-10-2021 End: 10-10-2021 Patient encounter procedure MD Espinoza Ruiz Work Phone: [facility] [place] [facility] Start: 10-05-2021 End: 10-05-2021 ambulatory Espinoza Ruiz Other [facility] Other Start: 10-05-2021 Telephone encounter Espinoza Ruiz [facility] Start: 10-02-2021 End: 10-03-[address] ANDREA GOLDEN Facility:[facility] Procedures Date Procedure Procedure Detail Performing Clinician Start: 05-22-2023 Colonoscopy Del Nettles Start: 05-22-2023 Esophagogastroduodenoscopy Del gong Start: 02-05-2023 Mammography Charito Vasquez MD Work Phone: Start: 10-10-2021 Plain X-ray of left shoulder MD Espinoza kidd Work Phone: Start: 09-07-2019 Colonoscopy Charito Vasquez MD Work Phone: Start: 09-07-2019 Colonoscopy Asuncion Buchanan Start: 09-07-2019 Esophagogastroduodenoscopy Asuncion Buchanan Start: 01-16-2015 Colonoscopy Asuncion Lubharati Comment on above: normal Start: 01-16-2015 Esophagogastroduodenoscopy Asuncion Lubharati Start: 08-17-2011 Esophagogastroduodenoscopy Asuncion Lue Start: 05-17-2011 [...] Screening for malign ant neoplasm of colon [facility] Start: 04-08-2024 End: 04-08-2024 Patient encounter procedure 04/08/2024 9:45 AM EST Office Visit [facility] [address] [place] [address] Madison Burns, DO [address] [place] [address] [facility] Start: 02-19-2024 ambulatory Ambulatory Facility:[facility] Start: 02-06-2024 Screening for malign ant neoplasm of breast Mammogram [facility] Start: 01-20-2024 End: 01-20-2024 Patient encounter procedure 01/20/2024 8:15 AM EST Office Visit [facility] [address] [place] [id number] Uirah Kilpatrick DO [address] [place] [address] [facility] Start: 04-22-2023 End: 04-22-2023 Patient encounter procedure 04/22/2023 11:00 AM EST Office Visit [facility] [address] [place] [address] Charito Vasquez MD [address] [place] [address] Arrived [facility] Comment on above: Arrived Start: 1950 Screening for malign ant neoplasm of colon [facility] Immunizations Immunization Date Immunization Notes Care Provider Fa [facility] 12-31-2022 Flu Shot - Documentation Purposes Only Andrea Golden Other [facility] 12-31-2022 influenza virus vaccine, unspecified formulation Asuncion Buchanan [facility] 12-22-2021 SARS-CoV-2 (COVID-19 ) [id number] Asuncion Buchanan [facility] 12-18-2021 influenza virus vaccine, split virus (incl. purified surface antigen) Shannan Webster Other [employer] Other 12-18-2021 influenza virus vaccine, unspecified formulation Asuncion Buchanan [facility] 07-04-2021 SARS-CoV-2 (COVID-19 ) mRNA-1273 vaccine Asuncion Lue [facility] 01-23-2021 SARS-CoV-2 (COVID-19 ) mRNA-1273 vaccine Asuncion Lue [facility] 11-23-2020 influenza virus vaccine, split virus (incl. purified surface antigen) Shannan Webster Other [employer] Other 11-23-2020 influenza virus vaccine, unspecified formulation Asuncion Lue [facility] 06-02-2020 SARS-CoV-2 (COVID-19 ) mRNA-1273 vaccine Asuncion Lue [facility] 05-05-2020 SARS-CoV-2 (COVID-19 ) mRNA-1273 vaccine Asuncion Lue [facility] 03-18-2020 SARS-CoV-2 (COVID-19 ) mRNA-1273 vaccine Asuncion Lue [facility] Comment on above: Result Comment: 3 sh ots to date 12-07-2019 influenza virus vaccine, split virus (incl. purified surface antigen) Shannan Webster Other [employer] Other 12-07-2019 influenza virus vaccine, unspecified formulation Asuncion Lue [facility] 01-05-2019 influenza virus vaccine, unspecified formulation Asuncion Lue [facility] 01-05-2019 pneumococcal polysaccharide vaccine, 23 valent Asuncion Lue [facility] 12-17-2018 influenza virus vaccine, unspecified formulation Asuncion Lue [facility] 12-19-2017 influenza virus vaccine, unspecified formulation Asuncion Lue [facility] 01-10-2017 influenza virus vaccine, split virus (incl. purified surface antigen) Shannan Webster Other [employer] Other 01-10-2017 influenza virus vaccine, unspecified formulation Asuncion Lue [facility] 01-10-2017 pneumococcal conjuga te vaccine, 13 valent Asuncion Lue [facility] 01-04-2016 influenza virus vaccine, unspecified formulation Asuncion Lue [facility] 01-04-2016 pneumococcal polysaccharide vaccine, 23 valent Asuncion Lue [facility] Payers Date Payer Category Payer Unknown [employer] M [employer] [id number] 2021-Present [address] [place] [address] [id number] 2017 Medicare MEDICARE MEDICAR E PART B [id number] 2017-Present [address] [address] [place] [address] Medicare [id number] 1959 Medicare [id number] 1959 Unknown [id number] 2.16.840.1.254946.19 1952 Unknown [id number] 2.16.840.1.191898.3.579.2.593 1952 Unknown [id number] 2.16.840.1.047691.3.579.2.593 1952 Unknown [id number] 2.16.840.1.421571.3.579.2.593 1952 Unknown [id number] 2.16.840.1.859251.3.579.2.593 1952 Unknown [id number] 2.16.840.1.189445.3.579.2.593 1952 Unknown [id number] 2.16.840.1.232792.3.579.2.593 1952 Unknown [id number] 2.16.840.1.231683.3.579.2.593 1952 Unknown [id number] 2.16.840.1.732759.3.579.2.593 1952 Unknown [id number] 2.16.840.1.371863.3.579.2.593 1952 Unknown [id number] 2.16.840.1.195217.3.579.2.593 1952 Unknown [id number] 2.16.840.1.786618.3.579.2.1259 1952 Unknown [id number] 2.16.840.1.166725.3.579.2.1259 1952 Unknown [id number] 2.16.840.1.690813.3.579.2.1259 1952 Unknown [id number] 2.16.840.1.918294.3.579.2.1259 1952 Unknown [id number] 2.16.840.1.129670.3.579.2.125 1952 Unknown [id number] 2.16.840.1.382139.3.579.2.727 1952 Unknown [id number] 2.16.840.1.989877.3.579.2.727 1952 Unknown [id number] 2.16.840.1.993560.3.579.2.727 1952 Unknown [id number] 2.16.840.1.945514.3.579.2.727 1952 Unknown [id number] 2.16.840.1.717665.3.579.2.727 Self-pay Self Pay [id number] [employer] BC/BS [id number] Social History Date Type Detail Facility Unknown if ever smoked [facility] Other Start: 03-07-2023 Sex Assigned At [facility] Other Start: 11-11-2018 End: 05-30-2023 Tobacco smoking status NHIS Never smoked tobacco (finding) [facility] Start: 1950 Sex Assigned At Female F [facility] Tobacco smoking status Never [facility] Start: 03-07-2023 Tobacco use and exposure Smokeless tobacco non-user [facility] Start: 03-07-2023 Alcohol intake Lifetime non-d brian (finding) [facility] Start: 03-07-2023 History of Social function [facility] Start: 03-05-2023 Alcohol Comment Caffeine : soda [facility] Start: 08-28-2022 Gender identity Identifies as female gender (finding) [facility] Medical Equipment Procedure Code Equipment Code Equipment Origin al Text Equipment Identifier Dates Arthroscopy, shoulder ANCHOR SUTURE FT III [id number] FDA Start: 11-11-2018 Arthroscopy, shoulder ANCHOR SUTURE FT III [id number] FDA Start: 11-11-2018 Arthroscopy, shoulder ANCHOR SUTURE FT III 5.5X16.3M FDA Start: 11-11-2018 Functional Status Date Assessment Result Facility 05-30-2023 Functional Status N/A [facility] 05-22-2023 Functional Status N/A [facility] 05-14-2023 Functional Status N/A [facility] 02-20-2023 Functional Status N/A [facility] 12-01-2021 Functional Status N/A [facility] Clinical Notes 10-10-2021 to 05-23-2023 Note Date & Type Note Facility 05-23-2023 Note [id number] [facility] 05-22-2023 Hospital Discharg e instructions Patient Education 05/22/2023 08:58:47 Colonoscopy, Care After Surgery Salam (CUSTOM) Colonoscopy Care After Surgery Please read the instructions outlined below and refer to this sheet in the next few weeks. These discharge instructions provide you with general information on caring for yourself after you leave the hospital. Your doctor may also give you specific instructions. While your treatment has been planned according to the most current medical practices available, unavoidable complications occasionally occur. If you have any problems or questions after discharge, please call your doctor. ACTIVITY You may resume your regular activity, but move at a slower pace for the next 24 hours. Take frequent rest periods for the next 24 hours. Walking will help get rid of the air and reduce the bloated feeling in your abdomen (belly). No driving for 24 hours (because of the anesthesia (medicine) used during the test). You may shower. Do not sign any important legal documents or operate any machinery for 24 hours (because of the anesthesia used during the test). NUTRITION Drink plenty of fluids. You may resume your normal diet as instructed by your doctor. Begin with a light meal and progress to your normal diet. Heavy or fried foods are harder to digest and may make you feel nauseated (sick to your stomach). Avoid alcoholic beverages for 24 hours or as instructed. MEDICATIONS You may resume your normal medications unless your doctor tells you otherwise. WHAT YOU CAN EXPECT TODAY Some feelings of bloating in the abdomen. Passage of more gas than usual. Spotting of blood in your stool or on the toilet paper. FOLLOW-UP Your doctor will discuss the results of your test with you. SEEK IMMEDIATE MEDICAL ATTENTION IF: There is more than a spotting of blood in your stool. There is abdominal distention (your abdomen is swollen). There is vomiting. You have a temperature over 101.5 F. There is abdominal pain or discomfort that is severe or gets worse throughout the day. 05/22/2023 08:58:44 Diverticulosis MAGR (CUSTOM) Diverticulosis Many people have small pouches in their colon called diverticulum. The diverticulum bulge outward through weak spots in the colon. You could have one or more of these pouches in the colon. The condition of having these pouches in the colon is called diverticulosis or diverticular disease. Diverticulosis is usually diagnosed by tests to evaluate something else. For example, you may have had a colonoscopy to screen for colon cancer when the diverticulosis was found. Most people with diverticulosis do not have any discomfort or problems. If symptoms develop, they may include mild cramps, bloating, and constipation. A complication of this condition is called diverticulitis. This is when the diverticulum become inflamed and infected. How to treat diverticulosis: Increasing the amount of fiber in the diet may reduce symptoms of diverticulosis and prevent complications such as diverticulitis (infected diverticuli). Fiber keeps stool soft and lowers pressure inside the colon so that bowel contents can move through easily. You should eat 20 to 35 grams of fiber each day. The table below shows the amount of fiber in some foods that you can easily add to your diet. Adding fiber slowly may decrease the bloating and fullness sometimes felt with an immediate high fiber diet. The doctor may also recommend taking a fiber product such as Citrucel or Metamucil once a day. In the past people with diverticulosis were to avoid nuts, corn, and seeds. This has not been found to be true. If you find that certain foods create cramping or bloating, avoid that food. Foods high in fiber include: Fresh fruits, fresh vegetables, legumes (beans), whole wheat bread, bran muffins or cereal, and nuts. See the table below for examples of high fiber foods. Remember, your goal is 20-35 grams per day. Amount of fiber in different foods Food Serving Grams of fiber Fruits Apple (with skin) 1 medium apple 4.4 Banana 1 medium banana 3.1 Oranges 1 orange 3.1 Prunes 1 cup, pitted 12.4 Juices Apple, unsweetened, w/added ascorbic acid 1 cup 0.5 Grapefruit, white, canned, sweetened 1 cup 0.2 Grape, unsweetened, w/added ascorbic acid 1 cup 0.5 [place] 1 cup 0.7 Vegetables Cooked Green beans 1 cup 4.0 Carrots 1/2 cup sliced 2.3 Peas 1 cup 8.8 Potato (baked, with skin) 1 medium potato 3.8 Raw [place] (with peel) 1 cucumber 1.5 Lettuce 1 cup shredded 0.5 Tomato 1 medium tomato 1.5 Spinach 1 cup 0.7 Legumes Baked beans, canned, no salt added 1 cup 13.9 Kidney beans, canned 1 cup 13.6 Beth beans, canned 1 cup 11.6 Lentils, boiled 1 cup 15.6 Breads, pastas, flours Bran muffins 1 medium muffin 5.2 Oatmeal, cooked 1 cup 4.0 White bread 1 slice 0.6 Whole-wheat bread 1 slice 1.9 Pasta and rice, cooked Macaroni 1 cup 2.5 Rice, brown 1 cup 3.5 Rice, white 1 cup 0.6 Spaghetti (regular) 1 cup 2.5 Nuts Almonds 1/2 cup 8.7 Peanuts 1/2 cup 7.9 Chart from [facility] 2013. SEEK IMMEDIATE MEDICAL CARE IF: You develop abdominal (belly) pain. An oral temperature above _ 101 F__develops. Repeated vomiting occurs. Blood is being passed in stools (bright red or black tarry stools). You develop any bowel problems or changes which you have not had before. Extra Information: To learn how much fiber and other nutrients are in different foods, visit the [place] Department of Agriculture (USDA) National Nutrient Database at: http://www.nal.usda.gov/fnic/minor dcomp/search/ Created using data from the USDA National Nutrient Database for Standard Reference. Available at http://www.nal.usda.gov/fnic/minor dcomp/search/. Information adapted from: ExitCare Patient Information 2009 [employer]. [employer] 2012 http://www.FOURward Thought/contents /zlfjysccoblf-rturnan-ekueiv-the -basics 05/22/2023 08:58:41 Hemorrhoids, Egwd-sy-Krdj Hemorrhoids Hemorrhoids are swollen veins that may develop: In the butt (rectum). These are called internal hemorrhoids. Around the opening of the butt (anus). These are called external hemorrhoids. Hemorrhoids can cause pain, itching, or bleeding. Most of the time, they do not cause serious problems. They usually get better with diet changes, lifestyle changes, and other home treatments. What are the causes? This condition may be caused by: Having trouble pooping (constipation). Pushing hard (straining) to poop. Watery poop (diarrhea). . Being very overweight (obese). Sitting for long periods of time. Heavy lifting or other activity that causes you to strain. Anal sex. Riding a bike for a long period of time. What are the signs or symptoms? Symptoms of this condition include: Pain. Itching or soreness in the butt. Bleeding from the butt. Leaking poop. Swelling in the area. One or more lumps around the opening of your butt. How is this diagnosed? A doctor can often diagnose this condition by looking at the affected area. The doctor may also: Do an exam that involves feeling the area with a gloved hand (digital rectal exam). Examine the area inside your butt using a small tube (anoscope). Order blood tests. This may be done if you have lost a lot of blood. Have you get a test that involves looking inside the colon using a flexible tube with a camera on the end (sigmoidoscopy or colonoscopy). How is this treated? This condition can usually be treated at home. Your doctor may tell you to change what you eat, make lifestyle changes, or try home treatments. If these do not help, procedures can be done to remove the hemorrhoids or make them smaller. These may involve: Placing rubber bands at the base of the hemorrhoids to cut off their blood supply. Injecting medicine into the hemorrhoids to shrink them. Shining a type of light energy onto the hemorrhoids to cause them to fall off. Doing surgery to remove the hemorrhoids or cut off their blood supply. Follow these instructions at home: Eating and drinking Eat foods that have a lot of fiber in them. These include whole grains, beans, nuts, fruits, and vegetables. Ask your doctor about taking products that have added fiber (fibersupplements). Reduce the amount of fat in your diet. You can do this by: ?Eating low-fat dairy products. ?Eating less red meat. ?Avoiding processed foods. Drink enough fluid to keep your pee (urine) pale yellow. Managing pain and swelling Take a warm-water bath (sitz bath) for 20 minutes to ease pain. Do this 3 4 times a day. You may do this in a bathtub or using a portable sitz bath that fits over the toilet. If told, put ice on the painful area. It may be helpful to use ice between your warm baths. ?Put ice in a plastic bag. ?Place a towel between your skin and the bag. ?Leave the ice on for 20 minutes, 2 3 times a day. General instructions Take tepg-est-rapiusw and prescription medicines only as told by your doctor. ?Medicated creams and medicines may be used as told. Exercise often. Ask your doctor how much and what kind of exercise is best for you. Go to the bathroom when you have the urge to poop. Do not wait. Avoid pushing too hard when you poop. Keep your butt dry and clean. Use wet toilet paper or moist towelettes after pooping. Do not sit on the toilet for a long time. Keep all follow-up visits as told by your doctor. This is important. Contact a doctor if you: Have pain and swelling that do not get better with treatment or medicine. Have trouble pooping. Cannot poop. Have pain or swelling outside the area of the hemorrhoids. Get help right away if you have: Bleeding that will not stop. Summary Hemorrhoids are swollen veins in the butt or around the opening of the butt. They can cause pain, itching, or bleeding. Eat foods that have a lot of fiber in them. These include whole grains, beans, nuts, fruits, and vegetables. Take a warm-water bath (sitz bath) for 20 minutes to ease pain. Do this 3 4 times a day. This information is not intended to replace advice given to you by your health care provider. Make sure you discuss any questions you have with your health care provider. Document Revised: 09/13/2021 Document Reviewed: 09/13/2021 [employer] Patient Education 2022 [employer] 05/22/2023 08:58:37 Endoscopy, Care After Procedure [facility] ([facility]) Endoscopy Care After Procedure Please read the instructions outlined below and refer to this sheet in the next few weeks. These discharge instructions provide you with general information on caring for yourself after you leave the hospital. Your doctor may also give you specific instructions. While your treatment has been planned according to the most current medical practices available, unavoidable complications occasionally occur. If you have any problems or questions after discharge, please call your doctor. ACTIVITY You may resume your regular activity but move at a slower pace for the next 24 hours. Take frequent rest periods for the next 24 hours. Walking will help expel (get rid of) the air and reduce the bloated feeling in your abdomen. No driving for 24 hours (because of the anesthesia (medicine) used during the test). You may shower. Do not sign any important legal documents or operate any machinery for 24 hours (because of the anesthesia used during the test). NUTRITION Drink plenty of fluids. You may resume your normal diet. Begin with a light meal and progress to your normal diet. Avoid alcoholic beverages for 24 hours or as instructed by your caregiver. MEDICATIONS You may resume your normal medications unless your caregiver tells you otherwise. WHAT YOU CAN EXPECT TODAY You may experience abdominal discomfort such as a feeling of fullness or gas pains. FOLLOW-UP Your doctor will discuss the results of your test with you. SEEK IMMEDIATE MEDICAL ATTENTION IF ANY OF THE FOLLOWING OCCUR: Excessive nausea (feeling sick to your stomach) and/or vomiting. Severe abdominal pain and distention (swelling). Trouble swallowing. Temperature over 100 F (37.8 C). Rectal bleeding or vomiting of blood. Document Released: 10/16/2004 Document Re-Released: 08/26/2006 [facility] Patient Information [employer]. 05/22/2023 08:58:29 Hiatal Hernia Hiatal Hernia A hiatal hernia occurs when part of the stomach slides above the muscle that separates the abdomen from the chest (diaphragm). A person can be born with a hiatal hernia (congenital), or it may develop over time. In almost all cases of hiatal hernia, only the top part of the stomach pushes through the diaphragm. Many people have a hiatal hernia with no symptoms. The larger the hernia, the more likely it is that you will have symptoms. In some cases, a hiatal hernia allows stomach acid to flow back into the tube that carries food from your mouth to your stomach (esophagus). This may cause heartburn symptoms. The development of heartburn symptoms may mean that you have a condition called gastroesophageal reflux disease (GERD). What are the causes? This condition is caused by a weakness in the opening (hiatus) where the esophagus passes through the diaphragm to attach to the upper part of the stomach. A person may be born with a weakness in the hiatus, or a weakness can develop over time. What increases the risk? This condition is more likely to develop in: Older people. Age is a major risk factor for a hiatal hernia, especially if you are over the age of 50. women. People who are overweight. People who have frequent constipation. What are the signs or symptoms? Symptoms of this condition usually develop in the form of GERD symptoms. Symptoms include: Heartburn. Upset stomach (indigestion). Trouble swallowing. Coughing or wheezing. Wheezing is making high-pitched whistling sounds when you breathe. Sore throat. Chest pain. Nausea and vomiting. How is this diagnosed? This condition may be diagnosed during testing for GERD. Tests that may be done include: X-rays of your stomach or chest. An upper gastrointestinal (GI) series. This is an X-ray exam of your GI tract that is taken after you swallow a chalky liquid that shows up clearly on the X-ray. Endoscopy. This is a procedure to look into your stomach using a thin, flexible tube that has a tiny camera and light on the end of it. How is this treated? This condition may be treated by: Dietary and lifestyle changes to help reduce GERD symptoms. Medicines. These may include: ?Zrgl-juw-wteuhxe antacids. ?Medicines that make your stomach empty more quickly. ?Medicines that block the production of stomach acid (H2 blockers). ?Stronger medicines to reduce stomach acid (proton pump inhibitors). Surgery to repair the hernia, if other treatments are not helping. If you have no symptoms, you may not need treatment. Follow these instructions at home: Lifestyle and activity Do not use any products that contain nicotine or tobacco. These products include cigarettes, chewing tobacco, and vaping devices, such as e-cigarettes. If you need help quitting, ask your health care provider. Try to achieve and maintain a healthy body weight. Avoid putting pressure on your abdomen. Anything that puts pressure on your abdomen increases the amount of acid that may be pushed up into your esophagus. ?Avoid bending over, especially after eating. ?Raise the head of your bed by putting blocks under the legs. This keeps your head and esophagus higher than your stomach. ?Do not wear tight clothing around your chest or stomach. ?Try not to strain when having a bowel movement, when urinating, or when lifting heavy objects. Eating and drinking Avoid foods that can worsen GERD symptoms. These may include: ?Fatty foods, like fried foods. ?[place] fruits, like oranges or lemon. ?Other foods and drinks that contain acid, like orange juice or tomatoes. ?Spicy food. ?Chocolate. Eat frequent small meals instead of three large meals a day. This helps prevent your stomach from getting too full. ?Eat slowly. ?Do not lie down right after eating. ?Do not eat 1 2 hours before bed. Do not drink beverages with caffeine. These include cola, coffee, cocoa, and tea. Do not drink alcohol. General instructions Take umbp-ygw-mvxfpcm and prescription medicines only as told by your health care provider. Keep all follow-up visits. Your health care provider will want to check that any new prescribed medicines are helping your symptoms. Contact a health care provider if: Your symptoms are not controlled with medicines or lifestyle changes. You are having trouble swallowing. You have coughing or wheezing that will not go away. Your pain is getting worse. Your pain spreads to your arms, neck, jaw, teeth, or back. You feel nauseous or you vomit. Get help right away if: You have shortness of breath. You vomit blood. You have bright red blood in your stools. You have black, tarry stools. These symptoms may be an emergency. Get help right away. Call 911. Do not wait to see if the symptoms will go away. Do not drive yourself to the hospital. Summary A hiatal hernia occurs when part of the stomach slides above the muscle that separates the abdomen from the chest. A person may be born with a weakness in the hiatus, or a weakness can develop over time. Symptoms of a hiatal hernia may include heartburn, trouble swallowing, or sore throat. Management of a hiatal hernia includes eating frequent small meals instead of three large meals a day. Get help right away if you vomit blood, have bright red blood in your stools, or have black, tarry stools. This information is not intended to replace advice given to you by your health care provider. Make sure you discuss any questions you have with your health care provider. Document Revised: 05/01/2022 Document Reviewed: 05/01/2022 [employer] Patient Education 2022 [employer] Follow Up Care 05/14/2023 13:37:06 With:Tho VILLEGAS, RUBA Villanueva, [facility] Address: When: Unknown Comments:Call for any problems. The office will reach out in about one week from procedure date. 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 Mar, Gastroesophageal reflux disease with esophagitis without hemorrhage (ICD-10 - K21.00) Avoid lying flat after eating. Avoid eating 2 hours prior to bedtime. Smaller, frequent meals may be better tolerated.Weight loss if overweight.PPI with any heartburn.Monitor for dysphagia. [employer] Other 01-18-2024 Evaluation note* Encounter Date Diagnosis Assessment Notes Treatment Notes Treatment Clinical Notes Mar, Iron deficiency anemia due to chronic blood loss (ICD-10 - D50.0) [employer] Other 12-22-2023 Evaluation note* Encounter Date Diagnosis Assessment Notes Treatment Notes Treatment Clinical Notes Feb, Iron deficiency anemia due to chronic blood loss (ICD-10 - D50.0) [employer] Other 12-20-2023 Evaluation note* Encounter Date Diagnosis Assessment Notes Treatment Notes Treatment Clinical Notes Feb, Anemia (ICD-10 - D64.9) [employer] Other 12-11-2023 Evaluation note* Encounter Date Diagnosis Assessment Notes Treatment Notes Treatment Clinical Notes Feb, Moderate persistent asthma without complication (ICD-10 - J45.40) [employer] Other 12-06-2023 Hospital Discharge instructions Patient Education [...] relieve pelvic muscle tension or spasms. Take xyif-mkt-iskfmxq and prescription medicines only as told by [...] provider. Document Revised: 07/12/2021 Document Reviewed: 07/12/2021 [employer] Patient Education 2022 [employer] 02/20/2023 09:44:59 Kegel Exercises Kegel Exercises Kegel [...] provider. Document Revised: 07/13/2021 Document Reviewed: 07/13/2021 [employer] Patient Education 2022 [employer] Follow Up Care 01/31/2022 08:50:25 With:Dewayne VILLEGAS, Asuncion [place], URL, [facility] Address: [address] [place] [address] [phone] When: Unknown Comments:[facility]04[facility] Evaluation note* Encounter Date Diagnosis Assessment Notes Treatment Notes Treatment Clinical Notes Feb, Moderate persistent asthma with acute exacerbation (ICD-10 - J45.41) Holding Breo for trial of Trelegy. Avoid dust, mold, fumes as much as possible. Steroid taper to break cycle of coughing Refer to Lode Miner and Epoxy Coatings Installer when stable Feb, Non-seasonal allergi c rhinitis due to other allergic trigger (ICD-10 - J30.89) Continue FLonase NS Add Astepro NS Continue Claritin and Singulair Feb, Gastroesophageal reflux disease with esophagitis without hemorrhage (ICD-10 - K21.00) Diet instructions: Smaller portions, avoid eating and laying flat, avoid eating or drinking prior to bedtime. Weight loss. Continue PPI [employer] Other 11-21-2023 Evaluation note* Encounter Date Diagnosis Assessment Notes Treatment Notes Treatment Clinical Notes Jan, Age-related osteopor osis without current pathological fracture (ICD-10 - M81.0) Jan, Hypercholesteremia (ICD-10 - E78.00) [employer] Other 11-14-2023 Evaluation note* Encounter Date Diagnosis Assessment Notes Treatment Notes Treatment Clinical Notes Jan, Menopause (ICD-10 - Z78.0) [employer] Other 11-10-2023 Evaluation note* Encounter Date Diagnosis Assessment Notes Treatment Notes Treatment Clinical Notes Jan, Hypercholesteremia (ICD-10 - E78.00) [employer] Other 11-10-2023 Evaluation note* Encounter Date Diagnosis [...] much improved. Offered PFT and referral to Epoxy Coatings Installer. Jan, Autoimmune thyroidit is (ICD-10 - E06.3) [...] LORENZO (generalized anxiety disorder) (ICD-10 - F41.1) [employer] Other 09-27-2023 Evaluation note* Encounter Date Diagnosis Assessment Notes Treatment Notes Treatment Clinical Notes Nov, Moderate persistent asthma with acute exacerbation (ICD-10 - J45.41) Reviewed medication - continue LABA/ICS and NIKO - continue Singulair, Claritin and Flonase Suggested short course of Steroids and antibiotics. Discussed use of LAMA in combination of what she is presently taking CXR if no improvement [employer] Other 08-23-2023 Evaluation note* Encounter Date Diagnosis Assessment Notes Treatment Notes Treatment Clinical Notes Oct, Mild persistent asthma, uncomplicated (ICD-10 - J45.30) [employer] Other 08-17-2023 Evaluation note* Encounter Date Diagnosis [...] understanding and is agreeable to treatment plan [employer] Other 04-12-2023 NotePROCEDURE: XR FOOT RT MIN [...] Electronically authenticated by: JEROME ESPINOSA Date: 2022-06-27 15:36[facility]03-02-2023 NotePROCEDURE: XR FOOT RT MIN 3 [...] with internal fixation Electronically authenticated by: CAMPOS ERAZO Date: 2022-05-17 16:27[facility]02-09-2023 NotePROCEDURE: XR FOOT RT MIN 3 [...] authenticated by: JEROME ESPINOSA Date: 2022-04-26 09:37[id number] NotePROCEDURE: XR FOOT RT MIN 3 VIEWS [...] Electronically authenticated by: JEROME ESPINOSA Date: 2022-04-05 14:43[facility]01-19-2023 NotePROCEDURE: XR FOOT RT 2V HISTORY: [...] Electronically authenticated by: JEROME ESPINOSA Date: 2022-04-05 14:41[facility]01-11-2023 NotePROCEDURE: XR FOOT RT MIN 3 [...] Electronically authenticated by: JEROME ESPINOSA Date: 2022-03-28 10:17[facility]12-26-2022 NotePROCEDURE: XR FOOT RT MIN 3 [...] Electronically authenticated by: JEROME ESPINOSA Date: 2022-03-12 09:46[facility]12-19-2022 Evaluation note* Encounter Date Diagnosis Assessment Notes Treatment Notes Treatment Clinical Notes Feb, Acute pain of left shoulder (ICD-10 - M25.512) Feb, Tear of left supraspinatus tendon (ICD-10 - M75.102) A 1/1cc marcaine / kenalog cortisone injection was performed into the subacromial space under sterile technique. Patient tolerated the injection well with no adverse reaction. [employer] Other 09-16-2022 Hospital Discharge instructions Patient Education [...] (electrical nerve stimulation). For women, using a neuropsychology medical consultant to prevent urine leaks. This is a [...] right after experiencing incontinence. General instructions Take byto-fwy-yasuhid and prescription medicines only as told by [...] 04/11/2005 Document Revised: 03/14/2018 Document Reviewed: 06/13/2017 [employer] Patient Education 2020 [employer] Follow Up Care 10/20/2021 08:23:44 With:Asuncion Buchanan MD, URL, [facility] Address: When: Unknown [facility] 2022 Evaluation note* Encounter Date [...] the injection well with no adverse reaction. [employer] Other Evaluation + Plan note Future Appointments Appointment Date:01/31/2022 08:00:00 AM Scheduled Provider:Asuncion Buchanan MD Location:[facility] Appointment Type:URO Office Visit [facility] Evaluation + Plan note Future Appointments Appointment Date:02/19/2024 08:00:00 AM Scheduled Provider:Asuncion Buchanan MD Location:[facility] Appointment Type:URO Office Visit [facility] evaluation + Plan note Future Appointments Appointment Date:05/22/2023 08:00:00 AM Scheduled Provider: Location:[facility] Appointment Type:Surgery FT Appointment Date:02/19/2024 08:00:00 AM Scheduled Provider:Asuncion Buchanan MD Location:[facility] Appointment Type:URO Office Visit [facility] Evaluation noteNo InformationNort [employer] Other Evaluation noteNo assessment information available [facility] Work Phone: Hisxfwk general Narrative - Reported* Type Description Date [...] above Hospitalization History blood transfusion from b [employer] Other Hishewz general Narrative - Reported* Type Description Date [...] above Hospitalization History blood transfusion from b [employer] Other Hisczfc general Narrative - Reported* Type Description Date [...] above Hospitalization History blood transfusion from b [employer] Other History general Narrative - Reported* Type [...] above Hospitalization History blood transfusion from b [employer] Other Hisiysd general Narrative - Reported* Type Description Date [...] above Hospitalization History blood transfusion from b [employer] Other Hospital course Narrative No data available for this section [facility] Hospital Discharge instructions No data available for this section [facility] Progress note No data available for this section [facility] Reason for referral (narrative)* Reason *FU 04/23 Referral for iron deficiency anemia. Diagnosis 1 Iron deficiency anem ia secondary to inadequate dietary iron intake (D50.8) Referral Organization [facility] kenny Referring Provider First Name Andrea Referring Provider Last Name [place] Referring Provider Specialty Internal Me dicine Referred Organization Referred Provider AZAM VILLA Referred Address [address], [place],[address] Referred Provider Specialty Hematology Referral Priority Routine [...] faxed Clinical Notes Include labs results p: [id number] f: [id number] Reason Referral for pe rsistent cough and wheezing Diagnosis 1 Moderate persistent asthma with acute exacerbation (J45.41) Referral Organization [facility] kenny Referring Provider First Name Andrea Referring Provider Last Name [place] Referring Provider Specialty Internal Me dicine Referred Organization Referred Provider Edouard Espinosa Referred Address [address], [place],[address] Referred Provider Specialty Pulmonary Di seases Referral Priority Routine General Notes Patient w/ allergic rhinitis and asthma w/ deterioration of her symptoms over the past year. Her medications have been maximized and alternative etiology for cough and wheezing addressed. She has been referred to an Lode Miner for evaluation and scheduled for a PFT. [...] dietary iron intake (D50.8) Referral Organization [facility] Ball Cecelia cox Referring Provider First Name Andrea Referring Provider Last Name [place] Referring Provider Specialty Internal Me dicine Referred Organization [facility] Referred Address [address], [place],[address] Referred Provider Specialty Gastroentero logy Referral Priority [...] notes locked, referral faxed Clinical Notes f: [id number] [employer] Other Reason for referral (narrative)* Reason *FU 04/23 Referral for iron deficiency anemia. Diagnosis 1 Iron deficiency anem ia secondary to inadequate dietary iron intake (D50.8) Referral Organization [facility] [place] cox Referring Provider First Name Andrea Referring Provider Last Name [place] Referring Provider Specialty Internal Me dicine Referred Organization Referred Provider AZAM VILLA Referred Address [address], [place],[address] Referred Provider Specialty Hematology Referral Priority Routine [...] faxed Clinical Notes Include labs results p: [id number] f: [id number] Reason Referral for pe rsistent cough and wheezing Diagnosis 1 Moderate persistent asthma with acute exacerbation (J45.41) Referral Organization [facility] [place] [facility]ic Referring Provider First Name Andrea Referring Provider Last Name [place] Referring Provider Specialty Internal Me dicine Referred Organization Referred Provider Edouard Espinosa Referred Address [address], [place],[address] Referred Provider Specialty Pulmonary Di pura Referral Priority Routine General Notes Patient w/ allergic rhinitis and asthma w/ deterioration of her symptoms over the past year. Her medications have been maximized and alternative etiology for cough and wheezing addressed. She has been referred to an Lode Miner for evaluation and scheduled for a PFT. [...] inadequate dietary iron intake (D50.8) Referral Organization [facility] kenny Referring Provider First Name Andrea Referring Provider Last Name [place] Referring Provider Specialty Internal Me dicine Referred Organization [facility] Referred Address [address] [facility] [address],[place], [place],[address] Referred Provider Specialty Gastroentero logy Referral Priority [...] to Hematology for IV iron and evaluation. [employer] Other Summary Purpose Family History Relationship Condition Age at Onset Recorded Date/T margaret Not Specified Malignant neoplasm of lung Unknown Malignant neoplasm of pancreas Unknown Diabetes mellitus Unknown father Pneumonia Unknown Chronic headache disorder Unknown sister Malignant neoplasm of breast Unknown brother Acute poliomyelitis Unknown brother Myocardial infarction Unknown brother Malignant neoplasm of colon Unknown Relationship Condition Age at Onset Recorded Date/T margaret Not Specified Malignant neoplasm of lung Unknown Malignant neoplasm of pancreas Unknown Diabetes mellitus Unknown father Pneumonia Unknown Chronic headache disorder Unknown sister Malignant neoplasm of breast Unknown brother Acute poliomyelitis Unknown brother Myocardial infarction Unknown brother Malignant neoplasm of colon Unknown father Unknown Malignant neoplasm Unknown Not Specified Diabetes mellitus Unknown Unknown Advance Directives Advance Directive Response Recorded Date/ Time Advance Directives No September 08 8:51am Chief Complaint and Reason for Visit Chief Complaint M25.512 Chief Complaint Check Up Amb Documentation Amb Documentation Cough Additional Source Comments REASON FOR VISIT (unrecogniz ed section and content) Left Shoulder PainMRINo Info rmationNo Informationprescription refillRecheck Left ShoulderNo InformationCough, sore throatNo InformationASTHMA, ALLERGIES ALL SUMMAR LONGNo InformationwellnessOrdermamm/lab resultsRefillcough/wheezingUpdateRepeat LabsLab resultsRepeat LabsCT and PFT OrderCheck UpAllergic to contrastMedication WantedCheck Up INFORMATION SOURCE (unrecogn ized section and content) DATE CREATED AUTHOR 10/11/2021 [facility] DATE CREATED AUTHOR AUTHOR'S ORGANIZ ATION 07/02/2022 [facility] DATE CREATED AUTHOR AUTHOR'S ORGANIZ ATION 05/30/2023 [facility] EPIC DATE CREATED AUTHOR AUTHOR'S ORGANIZ ATION 05/31/2023 [place] Care Teams (unrecognized sec tion and content) Team Status: Inactive Member Role Status Dates Espinoza Ruiz MD Attending Provider Active 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 Relationship Specialty Start Date End Date Andrea Golden MD [address] [place] [address] PCP - General Internal Medicine 08/27/22 Team Status: Active Member Role Status Dates Andrea Golden DO Primary Care Provider Active Team Status: Inactive Member Role Status Dates Andrea Golden DO Attending Provider Active Sta rt: April 16, 2023 End: April 16, 2023 Team Status: Active Member Role Status Dates Andrea Golden DO Primary Care Provider Active Start: May 23, 2023 Lisa Em Attending Provider Active Start: [facility] 2023 Team Status: Active Member Role Status Dates Andrea Golden DO Primary Care Provider Active Start: May 23, 2023 GERALD Rojo Attending Provider Active Start : May 23, 2023 Team Status: Inactive Member Role Status Dates Andrea Golden DO Primary Care Provide r, Attending Provider Active Start: June 21, 2023 End: June 21, 2023 Goals (unrecognized section and content) Goals may [...] [facility] [employer] [facility]. provides no warranty or guarantee of the accuracy or completeness of information in this document.
--- OUTSIDE RECORDS SUMMARY | 2023-06-26 20:35 | XMS_ITS | CCD ---
Author Organization [facility] Care Team Providers [facility] Director Name Role Phone Espinoza Ruiz Unavailable ANDREA GOLDEN Primary Care Physician [phone] Andrea Golden Unavailable Luma Chirinos Unavailable PABLO, [...] Amoxicillin Drug Allergy 10-22-19 19 Rash, Unknown [facility] (20 sources) Sulfacetamide / Sulfur Drug Allergy Unknown [facility] Other (20 sources) idp dye Propensity to adverse reactions 06-21-19 24 Unknown, Unknown Reaction [facility] (3 sources) Sulfonamides (Antibiotic) Allergy to substance 10-22-19 19 Unknown Reaction [facility] (3 sources) wasp venom Allergy to substance 10-22-19 19 Anaphylaxis [facility] (3 sources) bee venom protein (honey bee) Allergy to substance 10-22-19 19 Anaphylaxis [facility] (4 sources) Iodinated Contrast Media Allergy to substance 12-08-19 08 Other, Shortness of breath, Unknown [facility] (6 sources) Bee/Wasp/Ant venom; Translations: [Bee Stings] Drug allergy Dyspnea (finding), Weal (disorder) [facility] (6 sources) Contrast media; Translations: [contrast media (iodine-based)] Drug allergy Dyspnea (finding), Weal (disorder) General Surgery Tariq (20 sources) Iodine; Translations: [iodine] Drug Allergy 01-15-20 23 Unknown (qualifier value), Unknown [facility] Tariq (6 sources) Penicillin; Translations: [penicillin] Drug Allergy Eruption of skin (disorder) General Surgery [facility] (6 sources) Sulfonamides (Antibiotic); Translations: [sulfa drugs] Drug allergy Angioedema (disorder) General Surgery [facility] (1 source) bee venom Drug allergy (disorder) [facility] (1 source) Iodine (And Iodine Containting Drugs) Drug allergy (disorder) 01-19-20 15 [facility] (3 sources) Penicillins Drug allergy (disorder) 06-21-19 24 Unknown Reaction [facility] (1 source) Sulfonamides (Antibiotic) Drug allergy (disorder) 03-18-18 56 [facility] (2 sources) Iodine / Sodium Iodide Drug Allergy Unknown [facility] Other (18 sources) Substance with penicillin structure and antibacterial mechanism of action (substance) Drug allergy Unknown [facility] Other (19 sources) Substance with sulfonamide structure and antibacterial mechanism of action (substance) Drug allergy 12-08-19 08 Unknown [facility] Other (2 sources) Allergies Reconciled Propensity to adverse reactions Unknown [facility] Other (2 sources) patient allergy list reviewed by nurse or physicia Propensity to adverse reactions 09-25-19 18 Comment:Done [facility] Other (1 source) Penicillin G Drug Allergy 01-15-20 23 Rash [facility] (2 sources) Sulfacetamide Drug Allergy 06-21-19 24 Unknown Reaction [facility] (2 sources) Sulfur Drug Allergy 06-21-19 24 Unknown Reaction [facility] Medications Current Medications Medication Drug Class(es) Dates [...] PO As Directed October 21, 2018 12:00am [id number] 200 actuat albuterol 0.09 mg/actuat metered dose [...] 0.5 tablet by mouth four times daily Juodxnxjprft-Ghf-Bwnhbxld Active 0.5 TAB PO Four times daily [...] apply pea sized amount to urethra 2x/wk, [facility], 158, cm, 02/20/23 8:48:00 EST, Height/Length Dosing, 68.5, kg, 02/20/23 8:48:00 EST, Weight Dosing 0 02/20/2023 Active Start: 02-20-2023 estradiol 0.1 mg/g Vag Crm See Instructions, 42.5 gm, Refill(s) 0, apply pea sized amount to urethra 2x/wk, [facility], 158, cm, 02/20/23 8:48:00 EST, Height/Length Dosing, 68.5, kg, 02/20/23 8:48:00 EST, Weight Dosing Start Date: 02/20/23 Status: Ordered Start: 04-13-2021 estradiol 0.1 mg/g vaginal cream See Instructions, Apply pea sized amount to external urethral 3 times a week for 2 weeks (at bedtime), then twice a week after for maintenance, # 42.5 gm, Refills(s) 1, [facility]acy: [facility], [address], cm, 04/13/21 9:47:00 EST, Height/Length [...] Start: 09-02-2019 fluticasone 0. 05 mg/inh Nasal Melba 2 spray(s), Nasal, Daily, Refill(s) 0 Start [...] Inhalation daily Active fluticasone 0.05 mg/inh Nasal Melba (4 sources) Start: 09-02-2019 fluticasone 0.05 mg/inh Nasal Melba 2 spray(s), Nasal, Daily, Refill(s) 0 Start [...] Daily, # 30 tab(s), Refills(s) 6, [id number], 158, cm, 12/01/21 9:55:00 EDT, Height/Length Dosing, [...] # 90 tab(s), Refills(s) 1, Pharmacy: [facility] [facility], 154.9, cm, 12/11/19 9:26:00 EDT, Height/Length Dosing, 70.2, kg, 12/11/19 9:26:00 EDT, Weight Dosing Start Date: 12/11/19 Status: Ordered polysaccharide iron complex 150 mg oral capsule (9 sources) Start: 05-22-2023 take 150 mg by mouth every other day Ferrex-150 150 mg, Oral, Every other day, Refills(s) 0, Prophylaxis Start Date: 05/22/23 Status: Ordered Start: 03-08-2023 take 1 capsule by [facility] every other day Ferrex 150 150 MG [...] infection., # 30 cap(s), Refills(s) 3, Pharmacy: [facility], 158, cm, 02/20/23 8:48:00 EST, Height/Length Dosing, 68.5, kg, 02/20/23 8:48:00 EST, Weight Dosing Start Date: 02/20/23 Status: Ordered Start: 12-01-2021 Macrobid 100 m g Cap 100 mg = 1 cap(s), Oral, As Directed, take 1 tablet within 1 hour after intercourse to prevent infection., # 30 cap(s), Refills(s) 1, [facility]: [id number], 158, cm, 12/01/21 9:55:00 EDT, Height/Length Dosing, [...] Onset: 04-09-19 Chronic Other aftercare (1 source) 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; Translations: [GROUP HOME CURRENT USE OF ASPIRIN] Onset: 04-09-19 Episodic Other aftercare (3 sources) 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 Normal [facility] Comment on above: Result Comment: Elec tronically [...] (05/22/2023), Co (more content not included)... Normal [facility] Comment on above: Result Comment: Elec tronically Signed By: Del Nettles MD\.br\Date and Time Signed: 05/30/23 08:34 EDT IntraOperative Documentson 0 05-29-2023 IntraOperative Documents [id number] Normal [facility] Main OR Intraoperative Recor don 05-24-2023 Main OR Intraoperative Record IntraOp Document Type FT Summary Primary Physician: Del Nettles MD Finalized Date/Time: 05/24/23 14:03:51 Pt. Name: MUNIRA CHESTER/Sex: 1950 Female Med Rec #: [id number] Physician: Del Nettles MD Financial #: [id number] Pt. 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 Yes Last Modified By: Carrie KILLIAN, Neli F 05/22/23 08:18:09 Post-Care Text: The patient is free from signs and symptoms of injury caused by extraneous objects Patien (more content not included)... Normal 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 / Confirmed Recurrent UTI / SNOMED CT 968387456 / Confirmed Osteopenia of lumbar spine / SNOMED CT 246301797 / Confirmed Nocturia / SNOMED CT 578100818 / Confirmed Mild persistent asthma / SNOMED CT 1149220213 / Confirmed Migraine / SNOMED CT 18076228 / Confirmed Microscopic hematuria / SNOMED CT 444499086 / Confirmed Lumbar spondylosis / SNOMED CT 338648021 / Confirmed Mixed incontinence / SNOMED CT 80719632 / Confirmed Hypertension / SNOMED CT 0060550296 / Confirmed Hyperlipidemia / SNOMED CT 60267599 / Confirmed Personal history of colonic polyps / SNOMED CT 0913337895 / Confirmed History of gastric ulcer / SNOMED CT 057636696 / Confirmed H/O gastric ulcer / SNOMED CT 374415731 / Confirmed Graves disease / SNOMED CT 392966626 / Confirmed GERD (gastroesophageal reflux disease) / SNOMED CT 380274308 / Confirmed Incomplete bladder emptying / SNOMED CT 813228947 / Confirmed Epigastric pain / SNOMED CT 387158379 / Confirmed Chronic tension headache / SNOMED CT 098559380 / Confirmed Cervical spondylosis / SNOMED CT 2969936108 / Confirmed Bilateral cataracts / SNOMED CT 494672160 / Confirmed Benign essential hypertension / SNOMED CT 2511772 / Confirmed Hypothyroidism, acquired, autoimmune / SNOMED CT 222931130 / Confirmed Asymptomatic microscopic hematuria / SNOMED CT 3715217166 / Confirmed Asthma / SNOMED CT 708904845 / Confirmed Arthritis / SNOMED CT 8425936 / Confirmed Acute allergic rhinitis due to pollen / SNOMED CT 45811566 / Confirmed Abdominal bloating / SNOMED CT 358197123 / Confirmed Resolved: Reflux of urine / SNOMED CT 8462580958 Histories Procedure history: Colonoscopy ([id number]) on 09/07/2019 at 69 Years. EGD - Esophagogastroduodenoscop y (8194224955) on 09/07/2019 at 69 Years. EGD - Esophagogastroduodenoscop y (4714138297) on 01/16/2015 at 64 Years. Colonoscopy (674587060) on 01/16/2015 at 64 Years. Comments: 08/31/2019 16:19 EDT - Tonie Barragan LPN normal EGD - Esophagogastroduodenoscop y (5611652464) on 08/17/2011 at 61 Years. EGD - Esophagogastroduodenoscop y (5305235308) on 05/17/2011 at 60 Years. Laparoscopic cholecystectomy (86551403) on 06/16/2010 at 59 Years. Colonoscopy ([id number]) on 01/16/2010 at 59 Years. section (45902324). Rotator cuff repair (587919229). Tubal ligation (171194523). Cataracts (2834411038). Foot (78337924). Social History Social & Psychosocial Habits Alcohol 05/14/2023 Risk Assessment: Denies Alcohol Use Substance Abuse 05/14/2023 Risk Assessment: Denies Substance Abuse Tobacco 05/14/2023 Tobacco Use: Never (less than 100 in l Smokeless tobacco use: Never Concerns about tobacco use in household: No . Physical Examination Airway: Mallampati classification: II (soft palate, fauces, uvula visible). Respiratory: adequate air exchange. Cardiovascular: Regular rhythm. Plan [place] [employer]esthesiologists (ASA) physical status classification: Class II. Anesthetic Preoperative Plan: Anesthesia General. [facility] Comment on above: Result Comment: Elec tronically [...] when meets criteria ( To home ). [facility] Comment on above: Result Comment: Elec tronically Signed By: Jay Jay Valderrama Jr, DO\.br\Date and Time Signed: 05/24/23 13:53 EST RAD - CT Reporton 05-24-2023 RAD - CT Report [id number] [facility] RAD - CT Report [id number] [facility] Consenton 05-23-2023 Consent [id number] [facility] Discharge Instructionson Discharge Instructions [id number] [facility] Postoperative Documentson Postoperative Documents [id number] [facility] Colonoscopy Procedure Report on 05-22-2023 Colonoscopy Procedure Report Patient: MUNIRA CHESTER Age: 72 years Sex: Female : 1950 Associated Diagnoses: None Author: Del Nettles MD Pre-Procedure Procedure Date 05/22/2023 08:47:00 . Procedure Type: Colonoscopy. Procedure provider mo. Current history and physical Colonoscopy ([id number]) on 09/07/2019 at 69 Years. EGD - Esophagogastroduodenoscop y (0198241811) on 09/07/2019 at 69 Years. EGD - Esophagogastroduodenoscop y (4176399928) on 01/16/2015 at 64 Years. Colonoscopy ([id number]) on 01/16/2015 at 64 Years. Comments: 08/31/2019 16:19 Tonie Ro LPN normal EGD - Esophagogastroduodenoscop y (7090742873) on 08/17/2011 at 61 Years. EGD - Esophagogastroduodenoscop y (3459166310) on 05/17/2011 at 60 Years. Laparoscopic cholecystectomy ([id number]) on 06/16/2010 at 59 Years. Colonoscopy ([id number]) on 01/16/2010 at 59 Years. section (). Rotator cuff repair (218937073). Tubal ligation (407205032). Cataracts (2636912305). Foot (14936874).. Past Medical History Resolved Reflux of urine (4285453846): Resolved.. Family History Rheumatoid arthritis Mother Primary malignant neoplasm of lung Mother Diabetes mellitus type 2 Father Primary malignant neoplasm of female breast Sister . Procedure History Colonoscopy ([id number]) on 09/07/2019 at 69 Years. EGD - Esophagogastroduodenoscop y (0377235930) on 09/07/2019 at 69 Years. EGD - Esophagogastroduodenoscop y (6875322590) on 01/16/2015 at 64 Years. Colonoscopy ([id number]) on 01/16/2015 at 64 Years. Comments: 08/31/2019 16:19 Tonie Ro LPN normal EGD - Esophagogastroduodenoscop y (7673532574) on 08/17/2011 at 61 Years. EGD - Esophagogastroduodenoscop y ([id number]) on 05/17/2011 at 60 Years. Laparoscopic cholecystectomy (88298839) on 06/16/2010 at 59 Years. Colonoscopy ([id number]) on 01/16/2010 at 59 Years. section (). Rotator cuff repair (249818529). Tubal ligation (434111481). Cataracts (4458142454). Foot (45034745).. Colorectal neoplasm risk assessment Average risk. Informed [...] infection., # 30 cap(s), Refills(s) 3, Pharmacy: [facility], 158, cm, 02/20/23 8:48:00 EST, Height/Length Dosing, 68.5, kg,... Pantoprazole [address] Tab: 40 mg = 1 tab(s), Oral, Daily, # 90 tab(s), Refills(s) 1, [facility] [address] [facility], 154.9, cm, 12/11/19 9:26:00 EDT, Height/Length Dosing, 70.2, kg, 12/11/19 9:26:00 EDT, Weight Dosing estradiol 0.1 mg/g Vag Crm: See Instructions, 42.5 gm, Refill(s) 0, apply pea sized amount to urethra 2x/wk, [facility], 158, cm, 02/20/23 8:48:00 EST, [...] of stomach acid fluticasone 0.05 mg/inh Nasal Melba: 2 spray(s), Nasal, Daily, Refill(s) 0 levothyroxine [...] Findings Diverticul (more content not included)... Normal [facility] Comment on above: Other Comment: Alma enrique Attachment - attachment storage system not supported 0478601 Can be viewed in source systemMissing Attachment - attachment storage system not supported [id number] Can be viewed in source systemMissing Attachment - attachment storage system not supported [id number] Can be viewed in source systemMissing Attachment - attachment storage system not supported 8042823 Can be viewed in source systemMissing Attachment - attachment storage system not supported 9136761 Can be viewed in source systemMissing Attachment - attachment storage system not supported 5930615 Can be viewed in source systemMissing Attachment - attachment storage system not supported [id number] Can be viewed in source systemMissing Attachment - attachment storage system not supported [id number] Can be viewed in source system Consent for Treatmenton 03-0 Consent for Treatment [id number] Normal [facility] Consultation Noteon 05-22-19 Consultation Note Patient: MUNIRA [...] infection., # 30 cap(s), Refills(s) 3, Pharmacy: [facility], 158, cm, 02/20/23 8:48:00 EST, Height/Length Dosing, 68.5, kg,... Pantoprazole [address] Tab: 40 mg = 1 tab(s), Oral, Daily, # 90 tab(s), Refills(s) 1, [facility] [address], 154.9, cm, 12/11/19 9:26:00 EDT, Height/Length Dosing, 70.2, kg, 12/11/19 9:26:00 EDT, Weight Dosing estradiol 0.1 mg/g Vag Crm: See Instructions, 42.5 gm, Refill(s) 0, apply pea sized amount to urethra 2x/wk, [facility], 158, cm, 02/20/23 8:48:00 EST, [...] of stomach acid fluticasone 0.05 mg/inh Nasal Melba: 2 spray(s), Nasal, Daily, Refill(s) 0 levothyroxine [...] and Plan EGD: Diagnosis: Bile reflux gastritis ([id number] K29.60, Working, Medical). Course: Progressing as expected. Education and Follow-up: Counseled: Family. Notes: Continue current medication Follow-up pathology report. might benefit from CT enterography versus capsule endoscopy in the future Normal [facility] Comment on above: Result Comment: Elec tronically Signed By: Tho VILLEGAS, Del Duckworth\.br\Date and Time Signed: 05/22/23 09:05 EST Other Comment: Alma enrique Attachment - attachment storage system not supported [id number] Can be viewed in source systemMissing Attachment - attachment storage system not supported [id number] Can be viewed in source systemMissing Attachment - attachment storage system not supported 2477155 Can be viewed in source systemMissing Attachment - attachment storage system not supported 4158179 Can be viewed in source systemMissing Attachment - attachment storage system not supported 8131099 Can be viewed in source systemMissing Attachment - attachment storage system not supported 9053562 Can be viewed in source systemMissing Attachment - attachment storage system not supported [id number] Can be viewed in source systemMissing Attachment - attachment storage system not supported 7454766 Can be viewed in source systemMissing Attachment - attachment storage system not supported 7487572 Can be viewed in source systemMissing Attachment - attachment storage system not supported [id number] Can be viewed in source systemMissing Attachment - attachment storage system not supported [id number] Can be viewed in source system Consultation Note Patient: MUNIRA CHESTER Age: 72 years Sex: Female : 1950 Associated Diagnoses: None Author: Del Nettles MD Pre-Procedure Procedure Date 05/22/2023 08:47:00 . Procedure Type: Colonoscopy. Procedure provider me. Current history and physical Colonoscopy ([id number]) on 09/07/2019 at 69 Years. EGD - Esophagogastroduodenoscop y ([id number]) on 09/07/2019 at 69 Years. EGD - Esophagogastroduodenoscop y ([id number]) on 01/16/2015 at 64 Years. Colonoscopy ([id number]) on 01/16/2015 at 64 Years. Comments: 08/31/2019 16:19 EDT - Yung NIETON, Tonie Esqueda normal EGD - Esophagogastroduodenoscop y (3548143565) on 08/17/2011 at 61 Years. EGD - Esophagogastroduodenoscop y ([id number]) on 05/17/2011 at 60 Years. Laparoscopic cholecystectomy (30020570) on 06/16/2010 at 59 Years. Colonoscopy ([id number]) on 01/16/2010 at 59 Years. section (03764766). Rotator cuff repair (580317814). Tubal ligation (508885901). Cataracts (2674561114). Foot (02591363).. Past Medical History Resolved Reflux of urine (1103537095): Resolved.. Family History Rheumatoid arthritis Mother Primary malignant neoplasm of lung Mother Diabetes mellitus type 2 Father Primary malignant neoplasm of female breast Sister . Procedure History Colonoscopy ([id number]) on 09/07/2019 at 69 Years. EGD - Esophagogastroduodenoscop y ([id number]) on 09/07/2019 at 69 Years. EGD - Esophagogastroduodenoscop y ([id number]) on 01/16/2015 at 64 Years. Colonoscopy ([id number]) on 01/16/2015 at 64 Years. Comments: 08/31/2019 16:19 EDT - Tonie Barragan LPN normal EGD - Esophagogastroduodenoscop y ([id number]) on 08/17/2011 at 61 Years. EGD - Esophagogastroduodenoscop y (9970147059) on 05/17/2011 at 60 Years. Laparoscopic cholecystectomy ([id number]) on 06/16/2010 at 59 Years. Colonoscopy ([id number]) on 01/16/2010 at 59 Years. section (73230986). Rotator cuff repair (002602474). Tubal ligation (646073360). Cataracts (8125283132). Foot (22199976).. Colorectal neoplasm risk assessment Average risk. Informed [...] infection., # 30 cap(s), Refills(s) 3, Pharmacy: [facility], 158, cm, 02/20/23 8:48:00 EST, Height/Length Dosing, 68.5, kg,... Pantoprazole [address] Tab: 40 mg = 1 tab(s), Oral, Daily, # 90 tab(s), Refills(s) 1, [facility]acy: [facility] [address], 154.9, cm, 12/11/19 9:26:00 EDT, Height/Length Dosing, 70.2, kg, 12/11/19 9:26:00 EDT, Weight Dosing estradiol 0.1 mg/g Vag Crm: See Instructions, 42.5 gm, Refill(s) 0, apply pea sized amount to urethra 2x/wk, [facility], 158, cm, 02/20/23 8:48:00 EST, [...] of stomach acid fluticasone 0.05 mg/inh Nasal Melba: 2 spray(s), Nasal, Daily, Refill(s) 0 levothyroxine [...] well. Findings (more content not included)... Normal [facility] Comment on above: Result Comment: Elec tronically Signed By: Tho VILLEGAS, Del Duckworth\.br\Date and Time Signed: 05/22/23 08:51 EST error Other Comment: Alma enrique Attachment - attachment storage system not supported [id number] Can be viewed in source system Missing Attachment - attachment storage system not supported [id number] Can be viewed in source system Missing Attachment - attachment storage system not supported [id number] Can be viewed in source system Missing Attachment - attachment storage system not supported [id number] Can be viewed in source system Missing Attachment - attachment storage system not supported [id number] Can be viewed in source system Missing Attachment - attachment storage system not supported [id number] Can be viewed in source system Missing Attachment - attachment storage system not supported 8990493 Can be viewed in source system Missing Attachment - attachment storage system not supported [id number] Can be viewed in source system Discharge [...] Tab) fluticasone nasal (fluticasone 0.05 mg/inh Nasal Melba) fluticasone/umeclidinium/ vilanterol (Trelegy Ellipta) iron polysaccharide (Ferrex-150) [...] Appointments Saturday 8:00 AM EST With: Dewayne IVLLEGAS, Asuncion [place] Where: [facility] Comment on above: Result Comment: Elec [...] Tab) fluticasone nasal (fluticasone 0.05 mg/inh Nasal Melba) fluticasone/umeclidinium/ vilanterol (Trelegy Ellipta) iron polysaccharide (Ferrex-150) [...] VILLEGAS, Asuncion [place] Where: [facility] Comment on above: Result Comment: Elec [...] infection., # 30 cap(s), Refills(s) 3, Pharmacy: [facility], 158, cm, 02/20/23 8:48:00 EST, Height/Length Dosing, 68.5, kg,... Pantoprazole [address] Tab: 40 mg = 1 tab(s), Oral, Daily, # 90 tab(s), Refills(s) 1, Pharmacy: [address], 154.9, cm, 12/11/19 9:26:00 EDT, Height/Length Dosing, 70.2, kg, 12/11/19 9:26:00 EDT, Weight Dosing estradiol 0.1 mg/g Vag Crm: See Instructions, 42.5 gm, Refill(s) 0, apply pea sized amount to urethra 2x/wk, [facility], 158, cm, 02/20/23 8:48:00 EST, [...] of stomach acid fluticasone 0.05 mg/inh Nasal Melba: 2 spray(s), Nasal, Daily, Refill(s) 0 levothyroxine [...] and Plan EGD: Diagnosis: Bile reflux gastritis ([id number]-ZL K29.60, Working, Medical). Course: Progressing as expected. Education and Follow-up: Counseled: Family. Notes: Continue current medication Follow-up pathology report. [facility] Comment on above: Other Comment: Alma enrique Attachment - attachment storage system not supported [id number] Can be viewed in source systemMisssp[facility] Attachment - attachment storage system not supported [id number] Can be viewed in source systemMissspaulding [facility] Attachment - attachment storage system not supported [id number] Can be viewed in source systemMissspaulding [facility] Attachment - attachment storage system not supported [id number] Can be viewed in source systemMissspaulding hospital [facility] Attachment - attachment storage system not supported [id number] Can be viewed in source [facility]Miss[facility] Attachment - attachment storage system not supported [id number] Can be viewed in source systemMissing Attachment - attachment storage system not supported [id number] Can be viewed in source systemMissing Attachment - attachment storage system not supported [id number] Can be viewed in source systemMisssp[facility] Attachment - attachment storage system not supported [id number] Can be viewed in source systemMisssp[facility] Attachment - attachment storage system not supported [id number] Can be viewed in source systemMissing Attachment - attachment storage system not supported [id number] Can be viewed in source system Main OR PACU I Recordon 03-0 Main OR PACU I Record PACU Phase I Docum ent Type FT Summary Primary Physician: Del Nettles MD Finalized Date/Time: 05/22/23 09:41:42 Pt. Name: MUNIRA CHESTER/Sex: 1950 Female Med Rec #: [id number] Physician: Del Nettles MD Financial #: [id number] Pt. Type: O Room/Bed: / Admit/Disch: 05/22/23 [...] By: Nat Rodriguez I 05/22/23 09:41 Normal [facility] Main OR Preoperative Recordo n 05-22-2023 Main OR Preoperative Record Holding Area Document Type FT Summary Primary Physician: Del Nettles MD Finalized Date/Time: 05/22/23 07:08:55 Pt. Name: MUNIRA CHESTER Aviva/Sex: 1950 Female Med Rec #: [id number] Physician: Del Nettles MD Financial #: [id number] Pt. Type: O Room/Bed: / Admit/Disch: 05/22/23 [...] been NPO since. /MD,RN Finalized By: Neli Butler RN Document Signatures Signed By: Neli Butler RN 05/22/23 07:08 Normal [facility] Monitor Recordon 05-22-2023 Monitor Record [id number]#1.00TIFF Normal [facility] Monitor Record [id number]#1.00TIFF Normal [facility] Patient Education - Texton 0 05-22-2023 Patient [...] unsweetened, w/added ascorbic acid 1 cup 0.5 [place] 1 cup 0.7 Vegetables Cooked Green beans 1 cup 4.0 Carrots 1/2 cup sliced 2.3 Peas 1 cup 8.8 Potato (baked, with skin) 1 medium potato 3.8 Raw [place] (with peel) 1 cucumber 1.5 Lettuce 1 [...] 8.7 Peanuts 1/2 cup 7.9 Chart from [facility] 2013. SEEK IMMEDIATE MEDIC (more content not included)... Normal [facility] Consent for Procedure/Surger yon 05-16-2023 Consent for Procedure/Surgery [id number]#1.00TIFF [facility] Ambulatory Visit Summaryon 0 05-14-2023 Ambulatory Visit [...] Tab) fluticasone nasal (fluticasone 0.05 mg/inh Nasal Melba) fluticasone/umeclidinium/ vilanterol (Trelegy Ellipta 200 mcg-62.5 mcg-25 [...] VILLEGAS, Asuncion [place] Where: [facility] Normal [facility] Gastroenterology Office/Clin ic Noteon 05-14-2023 Gastroenterology Office/Clinic Note Chief Complaint ref by [place]- [place] HPI Staff This is a 72 [...] Tab, Oral, BID fluticasone 0.05 mg/inh Nasal Melba, 2 spray(s), Nasal, Daily Fosamax 70 mg [...] virus vaccine, inactivated 12/31/2022 Recorded SARS-CoV-2 (COVID-19) [id number].[id number] 12/22/2021 Recorded influenza virus vaccine, inactivated 12/18/2021 Recorded SARS-CoV-2 (COVID-19) mRNA-1273 vaccine 07/04/2021 Recorded SARS-CoV-2 (COVID-19) mRNA-1273 vaccine 01/23/2021 Recorded influenza virus vaccine, inactivated 11/23/2020 Recorded SARS-CoV-2 (COVID-19) mRNA-1273 vaccine 06/02/2020 Recorded SARS-CoV-2 (COVID-19) mRNA-1273 vaccine 05/05/2020 Recorded SARS-CoV-2 (COVID-19) mRNA-1273 vaccine 2020 Recorded 3 shots to date infl (more content not included)... Normal [facility] Comment on above: Result Comment: Elec tronically Signed By: Tho VILLEGAS, Del Duckworth\.br\Date and Time Signed: 05/14/23 13:06 EST Gastroenterology Office/Clinic Note Chief Complaint ref by [place]- [place] HPI Staff This is a 72 year old female who presents today for a referral by [place] for complaints of Iron deficiency anemia. Last EGD/Colon w/ Dr Adams 09/23/19 Bile reflux as well as sigmoid [...] Tab, Oral, BID fluticasone 0.05 mg/inh Nasal Melba, 2 spray(s), Nasal, Daily Fosamax 70 mg [...] Abuse - Denies (more content not included)... [facility] Comment on above: Result Comment: Elec tronically Signed By: Tho VILLEGAS, Del Duckworth\.br\Date and Time Signed: 05/14/23 13:07 EST Physician Referralon 024 Physician Referral [id number]#1.00TIFF [facility] Ambulatory Visit Summaryon 1 04-23-2022 Ambulatory Visit Summary MUNIRA CHESTER :1950 Visit Date:02/20/2023 Ambulatory Visit Instructions Your Diagnosis Mixed incontinence Recurrent UTI Urethral caruncle Tests Performed Urnls Dip Stick Auto w/o Microscopy POC [id number] Your Care Team Attending Physician - Dewayne [...] Tab) fluticasone nasal (fluticasone 0.05 mg/inh Nasal Melba) fluticasone/umeclidinium/ vilanterol (Trelegy Ellipta 200 mcg-62.5 mcg-25 [...] VILLEGAS, Asuncion [place] Where: [facility] Patient Educationon 02-21-20 Patient Education Obstetrics [...] pelvic muscle tension or spasms. ? Take dgvt-hbz-iptwoto and prescription medicines only as told by [...] movement i (more content not included)... Normal [facility] Urology Office/Clinic Noteon 02-20-2023 Urology Office/Clinic Note [...] Asuncion [place], URL, [facility] [address] [place] [address] [phone] Additional Instructions: 1 yr Patient Education Pelvic Floor Dysfunction, Female Kegel Exercises I, Kimmei Lemus, personally scribed for Dr. Buchanan on [...] [place] Comment on above: Result Comment: Elec tronically Signed By: Asuncion Buchanan MD\.br\Date and Time Signed: 02/20/23 18:21 EST\.br\Electronically Co-Signed By: Kimmie Lemus\.br\Date and Time Co-Signed: 02/20/23 09:53 EST POINT OF CARE GLUCOSEon 03-18 Glucose [Mass/Vol] 94 mg/dL Normal 74-106 [facility] Comment on above: Performed By: #### P OCGLUC ####[facility] [address] [address]Dr. Dwight Mario Glucose [Mass/Vol] 106 mg/dL Normal 74-106 [facility] Comment on above: Performed By: #### P OCGLUC ####[facility] [address] [place] [address]Dr. Dwight Mario Covid-19 PCR (CVDTB)on 03-18 SARS-CoV-2 (COVID-19) RNA GIOVANI+probe Ql (Unsp spec) Not detected Normal NOT DETECTED [facility] Comment on above: Result Comment: This test is not yet approved or cleared by the [place] FDA. When there are no FDA-approved or cleared tests available, and other criteria are met, FDA can make tests available under an emergency access mechanism called an Emergency Use Authorization (EUA). The EUA for this test is supported by the [place] of Health and Human Service's (HHS's) declaration [...] SARS-CoV-2. Performed By: #### C VDTBH #### [facility] [address] [place] [address] Dr. Dwight Mario PROF CHEM 8 (BAS METB)on Anion gap [Moles/Vol] 13.4 mmol/L Normal [facility] Comment on above: Performed By: #### B MP #### [facility] [address] [place] [address] Dr. Dwight Mario Calcium [Mass/Vol] 9.1 mg/dL Normal 8.5-10.1 [facility] Comment on above: Performed By: #### B MP #### [facility] [address] [place] [address] Dr. Dwight Mario Chloride [Moles/Vol] 107 mmol/L Normal 98-107 [facility] Comment on above: Performed By: #### B MP #### [facility] [address] [place] [address] Dr. Dwight Mario CO2 [Moles/Vol] 26.5 mmol/L Normal 21.0-32.0 [facility] Comment on above: Performed By: #### B MP #### [facility] [address] [place] [address] Dr. Dwight Mario Creatinine [Mass/Vol] 0.76 mg/dL Normal 0.55-1.02 [facility] Comment on above: Performed By: #### B MP #### [facility] [address] [place] [address] Dr. Dwight Mario EGFR-AF RWANDAN >60 Normal >=60 [facility] Comment on above: Performed By: #### B MP #### [facility] [address] [place] [address] Dr. Dwight Mario EGFR-NON AF RWANDAN >60 Normal >=60 [facility] Comment on above: Performed By: #### B MP #### [facility] [address] [place] [address] Dr. Dwight Mario Glucose [Mass/Vol] 108 mg/dL Critically high 74-106 [facility] Comment on above: Performed By: #### B MP #### [facility] [address] [address] [address] Dwight Mario Potassium [Moles/Vol] 3.9 mmol/L Normal 3.5-5.1 [facility] Comment on above: Performed By: #### B MP #### [facility] [address] [address] [address] Dwight Mario Sodium [Moles/Vol] 143 mmol/L Normal 136-145 [facility] Comment on above: Performed By: #### B MP #### [facility] [address] [place] [address] Dr. Dwight Mario Urea nitrogen [Mass/Vol] 25.0 mg/dL Critically high 7.0-18 .0 [facility] Comment on above: Performed By: #### B MP #### [facility] [address] [place] [address] Dr. Dwight Mario Urea nitrogen/Creatinine [Mass ratio] 32.9 mg/mg Normal [facility] Comment on above: Performed By: #### B MP #### [facility] [address] [place] [address] Dr. Dwight Mario CBC AUTO DIFFon 01-29-2022 BASO # 0.0 103/ul Normal 0.0-0.1 [facility] Comment on above: Performed By: #### C BC #### [facility] [address] [place] [address] Dr. Dwight Mario Basophils/100 WBC (Bld) 0.4 % Normal 0.2-2.0 [facility] Comment on above: Performed By: #### C BC #### [facility] [address] [place] [address] Dr. Dwight Mario EO # 0.3 103/ul Normal 0.0-0.7 [facility] Comment on above: Performed By: #### C BC #### [facility] [address] [place] [address] Dr. Dwight Mario Eosinophils/100 WBC (Bld) 2.8 % Normal 0.9-7.0 [facility] Comment on above: Performed By: #### C BC #### [facility] [address] [place] [address] Dr. Dwight Mario Erythrocyte distribution width (RBC) [Ratio] 14.0 % Normal 11.0-15.0 [facility] Comment on above: Performed By: #### C BC #### [facility] [address] [place] [address] Dr. Dwight Mario Hematocrit (Bld) [Volume fraction] 38.3 % Normal 36.0-48.0 [facility] Comment on above: Performed By: #### C BC #### [facility] [address] [place] [address] Dr. Dwight Mario Hemoglobin (Bld) [Mass/Vol] 12.6 g/dL Normal 12.0-16.0 [facility] Comment on above: Performed By: #### C BC #### [facility] [address] [place] [address] Dr. Dwight Mario IG # 0.03 10e3/ul Normal 0.00-0.03 [facility] Comment on above: Performed By: #### C BC #### [facility] [address] [place] [address] Dr. Dwight Mario IG % 0.3 % Normal 0.0-0.5 [facility] Comment on above: Performed By: #### C BC #### [facility] [address] [place] [address] Dr. Dwight Mario LYMPH # 2.9 103/ul Normal 1.2-3.8 [facility] Comment on above: Performed By: #### C BC #### [facility] [address] [place] [address] Dr. Dwight Mario Lymphocytes/100 WBC (Bld) 29.0 % Normal 20.5-60.0 [facility] Comment on above: Performed By: #### C BC #### [facility] [address] [place] [address] Dr. Dwight Mario MANUAL DIFF REQ NO Normal [facility] Comment on above: Performed By: #### C BC #### [facility] [address] [place] [address] Dr. Dwight Mario MCH (RBC) [Entitic mass] 30.3 pg Normal 26.7-34.0 [facility] Comment on above: Performed By: #### C BC #### [facility] [address] [place] [address] Dr. Dwight Mario MCHC (RBC) [Mass/Vol] 32.9 g/dL Normal 29.9-35.2 [facility] Comment on above: Performed By: #### C BC #### [facility] [address] [place] [address] Dr. Dwight Mario MCV (RBC) [Entitic vol] 92.1 fL Normal 81.0-99.0 [facility] Comment on above: Performed By: #### C BC #### [facility] [address] [place] [address] Dr. Dwight Mario MONO # 0.8 103/ul Normal 0.3-0.8 [facility] Comment on above: Performed By: #### C BC #### [facility] [address] [place] [address] Dr. Dwight Mario Monocytes/100 WBC (Bld) 7.9 % Normal 1.7-12.0 [facility] Comment on above: Performed By: #### C BC #### [facility] [address] [place] [address] Dr. Dwight Mario NEUT # 5.9 103/ul Normal 1.4-6.5 [facility] Comment on above: Performed By: #### C BC #### [facility] [address] [place] [address] Dr. Dwight Mario Neutrophils/100 WBC (Bld) 59.6 % Normal 43.0-75.0 [facility] Comment on above: Performed By: #### C BC #### [facility] [address] [place] [address] Dr. Dwight Mario Platelet mean volume (Bld) [Entitic vol] 9.4 fL Critically low 9.5-13.5 [facility] Comment on above: Performed By: #### C BC #### [facility] [address] [address] [address] Dwight Mario PLT 385 103/ul Normal 150-450 [facility] Comment on above: Performed By: #### C BC #### [facility] [address] [address] [address] Dwight Mario RBC 4.16 106/ul Critically low 4.20-5.40 [facility] Comment on above: Performed By: #### C BC #### [facility] [address] [address] [address] Dwight Mario WBC 10.0 103/ul Normal 4.0-11.0 [facility] Comment on above: Performed By: #### C BC #### [facility] [address] [address] [address] Dwight Mario LIPID PROFILEon 01-29-2022 CHOL-HDL RATIO NORM SEE BELOW Normal [facility] Comment on above: Result Comment: 3.3 - 4.4 LOW RISK 4.4 - 7.1 AVERAGE RISK 7.1 - 11.0 MODERATE RISK >11.0 HIGH RISK Performed By: #### L IPID, BMP, ALT, TSH ####[facility] [address] [address]DrJose Mario Cholesterol [Mass/Vol] 184 mg/dL Normal <=200 [facility] Comment on above: Performed By: #### L IPID, BMP, ALT, TSH ####[facility] [address] [id number] Mario Cholesterol in HDL [Mass/Vol] 61 mg/dL Critically high 40-60 [facility] Comment on above: Performed By: #### L IPID, BMP, ALT, TSH ####[facility] [address] [id number] Mario Cholesterol in LDL [Mass/Vol] 96.0 mg/dL Normal [facility] Comment on above: Performed By: #### L IPID, BMP, ALT, TSH ####[facility] [address] [address]DrJose Mario Cholesterol.total/Cholest carmelo in HDL [Mass ratio] 3.0 {ratio} Normal [facility] Comment on above: Performed By: #### L IPID, BMP, ALT, TSH ####[facility] [address] [address]Dr. Dwight Mario HDL NORMAL > or = 60 mg/dl - LO W CARDIOVASCULAR RISK <40 mg/dl - HIGH CARDIOVASCULAR RISK Normal [facility] Comment on above: Performed By: #### L IPID, BMP, ALT, TSH ####[facility] [address] [address]Dr. Dwight Mario LDL CALC NORMAL SEE BELOW Normal [facility] Comment on above: Result Comment: <100 mg/dl OPTIMAL 100 - 129 mg/dl NEAR OR ABOVE OPTIMAL 130 - 159 mg/dl BORDERLINE HIGH 160 - 189 mg/dl HIGH >190 mg/dl VERY HIGH Performed By: #### L IPID, BMP, ALT, TSH ####[facility] [address] [address]Dr. Dwight Mario Triglyceride [Mass/Vol] 135 mg/dL Normal <=150 [facility] Comment on above: Performed By: #### L IPID, BMP, ALT, TSH ####[facility] [address] [address]Dr. Dwight Mario VLDL CALC 27.0 mg/dL Normal [facility] Comment on above: Performed By: #### L IPID, BMP, ALT, TSH ####[facility] [address] [address]Dr. Dwight Mario MG MAMM SCREEN 3D ALLEGRA CADon 01-29-2022 MG MAMM SCREEN 3D ALLEGRA CAD Patient: MUNIRA MONTANO Exam Date: 01/29/2022 : 1950 Gender:F Ordering : DR ANDREA GOLDEN D.O. Admission #: [id number] Family : DR. MADISON BURNS D.O. Order #: [id number] CLICK HERE TO VIEW EXAM RADIOLOGY REPORT [...] breast cancer at age 61. LOCATION: [facility] BREAST COMPOSITION: Scattered areas fibroglandular density. FINDINGS: [...] MD on 01/29/2022 at 15:25 Normal [facility] PROF CHEM 8 (BAS METB)on Anion gap [Moles/Vol] 9.7 mmol/L Normal [facility] Comment on above: Performed By: #### L IPID, BMP, ALT, TSH ####[facility] [address] [id number]. Diwght Mario Calcium [Mass/Vol] 8.9 mg/dL Normal 8.5-10.1 [facility] Comment on above: Performed By: #### L IPID, BMP, ALT, TSH ####[facility] [address] [id number]. Dwight Mario Chloride [Moles/Vol] 105 mmol/L Normal 98-107 [facility] Comment on above: Performed By: #### L IPID, BMP, ALT, TSH ####[facility] [address] [id number]. Dwight Mario CO2 [Moles/Vol] 27.3 mmol/L Normal 21.0-32.0 [facility] Comment on above: Performed By: #### L IPID, BMP, ALT, TSH ####[facility] [address] [address]Dr. Dwight Mario Creatinine [Mass/Vol] 0.80 mg/dL Normal 0.55-1.02 [facility] Comment on above: Performed By: #### L IPID, BMP, ALT, TSH ####[facility] [address] [place], [place] [address]Dr. Dwight Mario EGFR-AF RWANDAN >60 Normal >=60 [facility] Comment on above: Performed By: #### L IPID, BMP, ALT, TSH ####[facility] [address] [place], [place] [address]Dr. Dwight Mario EGFR-NON AF RWANDAN >60 Normal >=60 [facility] Comment on above: Performed By: #### L IPID, BMP, ALT, TSH ####[facility] [address] [place], [place] [address]Dr. Dwight Mario Glucose [Mass/Vol] 107 mg/dL Critically high 74-106 [facility] Comment on above: Performed By: #### L IPID, BMP, ALT, TSH ####[facility] [address] [place], [place] [address]Dr. Dwight Mario Potassium [Moles/Vol] 4.0 mmol/L Normal 3.5-5.1 [facility] Comment on above: Performed By: #### L IPID, BMP, ALT, TSH ####[facility] [address] [place], [place] [address]Dr. Dwight Mario Sodium [Moles/Vol] 138 mmol/L Normal 136-145 [facility] Comment on above: Performed By: #### L IPID, BMP, ALT, TSH ####[facility] [address] [place], [place] [address]Dr. Dwight Mario Urea nitrogen [Mass/Vol] 20.0 mg/dL Critically high 7.0-18 .0 [facility] Comment on above: Performed By: #### L IPID, BMP, ALT, TSH ####[facility] [address] [place], [place] [address]Rl. Dwight Mario Urea nitrogen/Creatinine [Mass ratio] 25.0 mg/mg Normal [facility] Comment on above: Performed By: #### L IPID, BMP, ALT, TSH ####[facility] [address] [place], [place] [address]Gk. Dwight Mario SGPTon 01-29-2022 ALT [Catalytic activity/Vol] 26 U/L Normal 14-59 [facility] Comment on above: Performed By: #### L IPID, BMP, ALT, TSH ####[facility] [address] [place], [place] [address]Ep. Dwight Mario TSHon 01-29-2022 TSH 5.901 uIU/mL Critically high 0.358-3.74 0 [facility] Comment on above: Performed By: #### L IPID, BMP, ALT, TSH ####[facility] [address] [id number]. Dwight Mario XR shoulder LT min 2V*on XR shoulder LT min 2V* [facility] Main [place] [address] [place] [address] XRay Report Signed Patient: Munira Chester MR#: [id number] : 1950 Acct:[id number] Age/Sex: 71 / F ADM Date: 10/10/21 Loc: [facility] Room: Type: [facility] Attending Dr: Espinoza Ruiz MD Copies to: [...] Abelino Prado M.D.10/10/2021 1:25 PM Dictation Location: [place] [address] Transcribed By: [facility] 10/10/21 1325 Dictated By: Abelino Prado II, MD 10/10/21 1324 Signed By: 10/10/21 1325 [facility] MRI SHOULDER LT WO CONon MRI [...] by: YOVANA COTTRELL Date: 2021-10-03 15:02 Normal [facility] Vital Signs Date Time Vital Sign Value Performing Clinician Facility 06-21-2023 14:42-0400 Body height 154.94 cm [facility] 06-21-2023 14:42-0400 Body mass index (BMI) [Ratio] 29.3 kg/m2 [facility] 06-21-2023 14:42-0400 Body weight 70.53 kg [facility] 06-21-2023 14:42-0400 Diastolic blood pressure 79 mm[Hg] [facility] 06-21-2023 14:42-0400 Heart rate 81 /min [facility] 06-21-2023 14:42-0400 Respiratory rate 20 /min [facility] 06-21-2023 14:42-0400 SaO2% (BldA) [Mass fraction] 98 % [facility] 06-21-2023 14:42-0400 Systolic blood pressure 138 mm[Hg] [facility] 05-30-2023 08:08-0400 Blood Pressure Location Del Nettles [facility] 05-30-2023 08:08-0400 Diastolic blood pressure 78 mm[Hg] Del Nettles [facility] 05-30-2023 08:08-0400 Heart rate 80 /min Del Nettles [facility] 05-30-2023 08:08-0400 Respiratory rate 16 /min Del Nettles [facility] 05-30-2023 08:08-0400 Systolic blood pressure 126 mm[Hg] Mohamad Mouchli [facility] 05-22-2023 09:15-0500 Diastolic blood pressure 75 mm[Hg] Mohamad Mouchli [facility] 05-22-2023 09:15-0500 Heart rate 62 /min Mohamad Mouchli [facility] 05-22-2023 09:15-0500 Mean blood pressure 87 mm[Hg] Mohamad Mouchli [facility] 05-22-2023 09:15-0500 Respiratory rate 19 /min Mohamad Mouchli [facility] 05-22-2023 09:15-0500 SaO2% (BldA) [Mass fraction] 96 % Mohamad Mouchli [facility] 05-22-2023 09:15-0500 Systolic blood pressure 112 mm[Hg] Mohamad Mouchli [facility] 05-22-2023 09:05-0500 Diastolic blood pressure 71 mm[Hg] Mohamad Mouchli [facility] 05-22-2023 09:05-0500 Heart rate 65 /min Mohamad Mouchli [facility] 05-22-2023 09:05-0500 Mean blood pressure 84 mm[Hg] Mohamad Mouchli [facility] 05-22-2023 09:05-0500 Respiratory rate 10 /min Mohamad Mouchli [facility] 05-22-2023 09:05-0500 SaO2% (BldA) [Mass fraction] 95 % Mohamad Mouchli [facility] 05-22-2023 09:05-0500 Systolic blood pressure 111 mm[Hg] Mohamad Mouchli [facility] 05-22-2023 09:00-0500 Diastolic blood pressure 70 mm[Hg] Mohamad Mouchli [facility] 05-22-2023 09:00-0500 Heart rate 66 /min Mohamad Mouchli [facility] 05-22-2023 09:00-0500 Respiratory rate 15 /min Mohamad Mouchli [facility] 05-22-2023 09:00-0500 SaO2% (BldA) [Mass fraction] 99 % Mohamad Mouchli [facility] 05-22-2023 09:00-0500 Systolic blood pressure 113 mm[Hg] Mohamad Mouchli [facility] 05-22-2023 08:50-0500 Body temperature 97.52 [degF] Mohamad Mouchli [facility] 05-22-2023 08:45-0500 Respiratory rate 24 /min Mohamad Mouchli [facility] 05-22-2023 08:40-0500 Respiratory rate 24 /min Mohamad Mouchli [facility] 05-22-2023 08:35-0500 Respiratory rate 22 /min Mohamad Mouchli [facility] 05-22-2023 07:14-0500 Blood Pressure Location Mohamad Mouchli [facility] 05-22-2023 07:14-0500 Body temperature 97.88 [degF] Mohamad Mouchli [facility] 05-14-2023 12:52-0500 Blood Pressure Location Mohliud Antonuchli [facility] 05-14-2023 12:52-0500 Diastolic blood pressure 89 mm[Hg] Mohliud Mouchli [facility] 05-14-2023 12:52-0500 Heart rate 89 /min Mohliud Mouchli [facility] 05-14-2023 12:52-0500 Respiratory rate 16 /min Resource Gurud Sococouchli [facility] 05-14-2023 12:52-0500 Systolic blood pressure 135 mm[Hg] Tru [employer] Corpliud Sococouchli [facility] 04-16-2023 09:00-0500 Body height 154.94 cm Andrea [employer] Other [facility] 04-16-2023 09:00-0500 Body mass index (BMI) [Ratio] 30.12 kg/m2 Andrea Ball Other [facility] Other 04-16-2023 09:00-0500 Body weight 72.3 kg Andrea Ball Other [facility] 04-16-2023 09:00-0500 Diastolic blood pressure 86 mm[Hg] Andrea Ball Other [facility] 04-16-2023 09:00-0500 Respiratory rate 20 /min Andrea Ball Other [facility] Other 04-16-2023 09:00-0500 SaO2% (BldA) [Mass fraction] 95 % Andrea Ball Other [facility] Other 04-16-2023 09:00-0500 Systolic blood pressure 150 mm[Hg] Andrea Ball Other [facility] 02-18-2023 11:45-0500 Body height 154.94 cm Andrea Ball Other [employer] Other 02-18-2023 11:45-0500 Body mass index (BMI) [Ratio] 29.4 kg/m2 Andrea Ball Other [employer] Other 02-18-2023 11:45-0500 Body weight 70.58 kg Andrea Ball Other [employer] Other 02-18-2023 11:45-0500 Diastolic blood pressure 80 mm[Hg] Andrea Ball Other [employer] Other 02-18-2023 11:45-0500 Respiratory rate 12 /min Andrea Ball Other [employer] Other 02-18-2023 11:45-0500 SaO2% (BldA) [Mass fraction] 98 % Andrea Ball Other [employer] Other 02-18-2023 11:45-0500 Systolic blood pressure 148 mm[Hg] Andrea Ball Other [employer] Other 01-25-2023 08:30-0500 Body height 154.94 cm Andrea Ball Other [employer] Other 01-25-2023 08:30-0500 Body mass index (BMI) [Ratio] 29.59 kg/m2 Andrea Ball Other [employer] Other 01-25-2023 08:30-0500 Body weight 71.03 kg Andrea Ball Other [employer] Other 01-25-2023 08:30-0500 Diastolic blood pressure 77 mm[Hg] Andrea Ball Other [employer] Other 01-25-2023 08:30-0500 Respiratory rate 12 /min Andrea Ball Other [employer] Other 01-25-2023 08:30-0500 Systolic blood pressure 118 mm[Hg] Andrea Ball Other [employer] Other 12-12-2022 13:45-0400 Body height 154.94 cm Andrea Ball Other [employer] Other 12-12-2022 13:45-0400 Body mass index (BMI) [Ratio] 29.36 kg/m2 Andrea Ball Other [employer] Other 12-12-2022 13:45-0400 Body weight 70.49 kg Andrea Ball Other [employer] Other 12-12-2022 13:45-0400 Diastolic blood pressure 79 mm[Hg] Andrea Ball Other [employer] Other 12-12-2022 13:45-0400 Respiratory rate 12 /min Andrea Ball Other [employer] Other 12-12-2022 13:45-0400 SaO2% (BldA) [Mass fraction] 98 % Andrea Ball Other [employer] Other 12-12-2022 13:45-0400 Systolic blood pressure 130 mm[Hg] Andrea Ball Other [employer] Other 11-01-2022 15:05-0400 Body height 154.94 cm Shannan Webster Other [employer] Other 11-01-2022 15:05-0400 Body mass index (BMI) [Ratio] 28.34 kg/m2 Shannan Webster Other [employer] Other 11-01-2022 15:05-0400 Body temperature 96.2 [degF] Shannan Webster Other [employer] Other 11-01-2022 15:05-0400 Body weight 68.04 kg Shannan Webster Other [employer] Other 11-01-2022 15:05-0400 Diastolic blood pressure 69 mm[Hg] Shannan Webster Other [employer] Other 11-01-2022 15:05-0400 Respiratory rate 18 /min Shannan Webster Other [employer] Other 11-01-2022 15:05-0400 SaO2% (BldA) [Mass fraction] 99 % Shannan Webster Other [employer] Other 11-01-2022 15:05-0400 Systolic blood pressure 130 mm[Hg] Shannan Webster Other [employer] Other 03-05-2022 15:00-0500 Body height 162.56 cm Luma Chirinos Other [employer] Other 12-01-2021 09:55-0400 Blood Pressure Location Asuncion Lue [facility] 12-01-2021 09:55-0400 Diastolic blood pressure 89 mm[Hg] Asuncion Lue [facility] 12-01-2021 09:55-0400 Heart rate 81 /min Asuncion Buchanan [facility] 12-01-2021 09:55-0400 Systolic blood pressure 140 mm[Hg] Asuncion Buchanan [facility] 10-10-2021 10:15-0400 Body height 162.56 cm Espinoza Ruiz Other [employer] Other 10-10-2021 10:15-0400 Body mass index (BMI) [Ratio] 24.89 kg/m2 Espinoza Olexa Other [employer] Other 10-10-2021 10:15-0400 Body weight 65.77 kg Espinoza Loraxa Other [employer] Other Encounters Encounter Date Encounter Type Care Provider Facility Start: 06-21-2023 End: 06-21-2023 ambulatory [facility] Work Phone: Start: 06-21-2023 End: 06-21-2023 Patient encounter procedure [facility] Work Phone: Start: 05-30-2023 End: 05-31-2023 ambulatory Del Nettles Facility:[facility] Start: 05-30-2023 End: 05-30-2023 Patient encounter procedure Del Nettles [facility] Start: 05-29-2023 End: 05-29-2023 ambulatory CHARITO VASQUEZ Not Available Start: 05-23-2023 Non-patient / Non-visit [facility] [employer] Work Phone: Start: 05-22-2023 End: 05-23-2023 ambulatory Del Nettles Facility:[facility] Start: 05-22-2023 End: 05-22-2023 Patient encounter procedure Del Nettles [facility] Start: 05-16-2023 End: 05-16-2023 ambulatory CHARITO VASQUEZ Not Available Start: 05-14-2023 End: 05-15-2023 ambulatory Del Nettles Facility:[facility] Start: 05-14-2023 End: 05-14-2023 Patient encounter procedure Del Nettles [facility] Start: 04-22-2023 Bamboo flowsdanial brasher MD Work Phone: [facility] Start: 04-22-2023 Bamboo flowsdanial brasher MD Work Phone: [facility] Start: 04-22-2023 Telephone encounter Andrea WALLACE [facility] Start: 04-22-2023 End: 04-22-2023 ambulatory CHARITO Calabrese [employer] [employer] Other Start: 04-19-2023 End: 04-19-2023 ambulatory Andrea Golden Other [employer] Other Start: 04-19-2023 Telephone encounter Andrea WALLACE [facility] Start: 04-18-2023 Telephone encounter Andrea [place] MADISON [facility] Start: 04-18-2023 End: 04-18-2023 ambulatory Andrea Golden Other [employer] Other Start: 04-16-2023 End: 04-16-2023 ambulatory Andrea Golden Other [employer] Other Start: 04-16-2023 Office outpatient vi sit 25 minutes Andrea Golden [facility] Start: 04-16-2023 End: 04-16-2023 Patient encounter procedure [facility] Start: 04-04-2023 End: 04-04-2023 ambulatory Andrea Golden Other [employer] Other Start: 04-04-2023 Telephone encounter Andrea WALLACE [facility] Start: 03-08-2023 End: 03-08-2023 ambulatory Andrea Golden Other [employer] Other Start: 03-08-2023 Telephone encounter Andrea WALLACE [facility] Start: 03-07-2023 End: 03-07-2023 ambulatory ANA VALIENTE Not Available Start: 03-06-2023 Telephone encounter Andrea WALLACE [facility] Start: 03-06-2023 End: 03-06-2023 ambulatory MADISON BURNS [employer] Other Start: 02-25-2023 End: 02-25-2023 ambulatory Andrea Golden Other [employer] Other Start: 02-25-2023 Telephone encounter Andrea WALLACE [facility] Start: 02-20-2023 End: 02-21-2023 ambulatory Asuncion Buchanan Facility:[facility] Start: 02-20-2023 End: 02-20-2023 Patient encounter procedure Asuncion Buchanan [facility] Start: 02-18-2023 End: 02-18-2023 ambulatory Andrea Golden Other [employer] Other Start: 02-18-2023 Office outpatient vi sit 15 minutes Andrea Golden [facility] Start: 02-05-2023 End: 02-05-2023 ambulatory Andrea Golden Other [employer] Other Start: 02-05-2023 Telephone encounter Andrea Golden [facility] Start: 01-31-2023 End: 01-31-2023 ambulatory Andrea Golden Other [employer] Other Start: 01-31-2023 Telephone encounter Andrea Golden [facility] Start: 01-29-2023 End: 01-29-2023 ambulatory Andrea Golden Other [employer] Other Start: 01-29-2023 Telephone encounter Andrea Golden [facility] Start: 01-25-2023 End: 01-25-2023 ambulatory Andrea Golden Other [employer] Other Start: 01-25-2023 Patient encounter procedure Andrea Golden [facility] Start: 01-25-2023 Telephone encounter Andrea Golden [facility] Start: 12-12-2022 End: 12-12-2022 ambulatory Andrea Golden Other [employer] Other Start: 12-12-2022 Office outpatient vi sit 15 minutes Andrea Golden [facility] Start: 11-07-2022 End: 11-07-2022 ambulatory Andrea Golden Other [employer] Other Start: 11-07-2022 Telephone encounter Andrea Golden [facility] Start: 11-01-2022 End: 11-01-2022 ambulatory Shannan Webster Other [employer] Other Start: 11-01-2022 Office outpatient vi sit 25 minutes Shannan Webster [facility] Start: 06-27-2022 End: 06-28-[address] JEROME ESPINOSA Facility:[facility] Start: 06-04-2022 End: 06-04-2022 ambulatory Andrea Golden Other [employer] Other Start: 06-04-2022 Telephone encounter Andrea Golden [facility] Start: 05-17-2022 End: 05-18-[address] CAMPOS ERAZO Facility:[facility] Start: 04-26-2022 End: 04-27-[address] JEROME ESPINOSA Facility:[facility] Start: 04-25-2022 End: 04-25-2022 ambulatory Andrea Golden Other [employer] Other Start: 04-25-2022 Telephone encounter Andrea WALLACE [facility] Start: 04-10-2022 End: 04-10-2022 ambulatory Andrea Golden Other [employer] Other Start: 04-10-2022 Telephone encounter Andrea WALLACE [facility] Start: 04-07-2022 Encounter for preprocedural cardiovascular examination BASHIR Ramos [facility] Start: 04-07-2022 Encounter for preprocedural laboratory examination [facility] Start: 04-06-2022 End: 04-06-2022 ambulatory Andrea Golden Other [employer] Other Start: 04-06-2022 Telephone encounter Andrea WALLACE [facility] Start: 04-05-2022 End: 04-05-[address] JEROME [...] 03-05-2022 End: 03-05-2022 ambulatory Luma Chirinos Other [employer] Other Start: 03-05-2022 Office outpatient vi sit 15 minutes Luma Chirinos [facility] Start: 01-29-2022 End: 01-30-[address] ANDREA GOLDEN Facility:[facility] Start: 01-18-2022 Adult health examination Shannan Webster Other [employer] Other Start: 12-01-2021 End: 12-01-2021 Patient encounter procedure Asuncion Buchanan [facility] Start: 10-10-2021 End: 10-10-2021 ambulatory Espinoza Ruiz Other [facility] Other Start: 10-10-2021 Office outpatient vi sit 25 minutes Espinoza Ruiz [facility] [place] [facility] Start: 10-10-2021 End: 10-10-2021 Patient encounter procedure MD Espinoza Ruiz Work Phone: [facility] [place] [facility] Start: 10-05-2021 End: 10-05-2021 ambulatory Espinoza Ruiz Other [facility] Other Start: 10-05-2021 Telephone encounter Espinoza Ruiz [...] Screening for malign ant neoplasm of colon [facility] Start: 04-08-2024 End: 04-08-2024 Patient encounter procedure 04/08/2024 9:45 AM EST Office Visit [facility] [address] [place] [address] Madison Burns, DO [address] [place] [address] [facility] Start: 02-19-2024 ambulatory Ambulatory Facility:[facility] Start: 02-06-2024 Screening for malign ant neoplasm of breast Mammogram [facility] Start: 01-20-2024 End: 01-20-2024 Patient encounter procedure 01/20/2024 8:15 AM EST Office Visit [facility] [address] [place] [id number] Uriah Kilpatrick DO [address] [place] [address] [facility] Start: 04-22-2023 End: 04-22-2023 Patient encounter procedure 04/22/2023 11:00 AM EST Office Visit [facility] [address] [place] [address] Charito Vasquez MD [address] [place] [address] Arrived [facility] Comment on above: Arrived Start: 1950 Screening for malign ant neoplasm of colon [facility] Immunizations Immunization Date Immunization Notes Care Provider Fa [facility] 12-31-2022 Flu Shot - Documentation Purposes Only Andrea Golden Other [facility] 12-31-2022 influenza virus vaccine, unspecified formulation Asuncion Buchanan [facility] 12-22-2021 SARS-CoV-2 (COVID-19 ) [id number] Asuncion Buchanan [facility] 12-18-2021 influenza virus vaccine, split virus (incl. purified surface antigen) Shannan Webster Other [employer] Other 12-18-2021 influenza virus vaccine, unspecified formulation Asuncion Buchanan [facility] 07-04-2021 SARS-CoV-2 (COVID-19 ) mRNA-1273 vaccine Asuncion Lue [facility] 01-23-2021 SARS-CoV-2 (COVID-19 ) mRNA-1273 vaccine Asuncion Lue [facility] 11-23-2020 influenza virus vaccine, split virus (incl. purified surface antigen) Shannan Webster Other [employer] Other 11-23-2020 influenza virus vaccine, unspecified formulation Asnucion Lue [facility] 06-02-2020 SARS-CoV-2 (COVID-19 ) mRNA-1273 vaccine Asuncion Lue [facility] 05-05-2020 SARS-CoV-2 (COVID-19 ) mRNA-1273 vaccine Asuncion Lue [facility] 03-18-2020 SARS-CoV-2 (COVID-19 ) mRNA-1273 vaccine Asuncion Lue [facility] Comment on above: Result Comment: 3 sh ots to date 12-07-2019 influenza virus vaccine, split virus (incl. purified surface antigen) Shannan Webster Other [employer] Other 12-07-2019 influenza virus vaccine, unspecified formulation Asuncion Lue [facility] 01-05-2019 influenza virus vaccine, unspecified formulation Asuncion Lue [facility] 01-05-2019 pneumococcal polysaccharide vaccine, 23 valent Asuncion Lue [facility] 12-17-2018 influenza virus vaccine, unspecified formulation Asuncion Lue [facility] 12-19-2017 influenza virus vaccine, unspecified formulation Asuncion Lue [facility] 01-10-2017 influenza virus vaccine, split virus (incl. purified surface antigen) Shannan Webster Other [place] [employer] Other 01-10-2017 influenza virus vaccine, unspecified formulation Asuncion Lue [facility] 01-10-2017 pneumococcal conjuga te vaccine, 13 valent Asuncion Lue [facility] 01-04-2016 influenza virus vaccine, unspecified formulation Asuncion Lue [facility] 01-04-2016 pneumococcal polysaccharide vaccine, 23 valent Asuncion Lue [facility] Payers Date Payer Category Payer Unknown [employer] M [employer] [id number] 2021-Present [address] [place] [address] [id number] 2017 Medicare MEDICARE MEDICAR E PART B [id number] 2017-Present [address] [address] [place] [address] Medicare [id number] 1959 Medicare [id number] 1959 Unknown [id number] 2.16.840.1.700691.19 1952 Unknown [id number] 2.16.840.1.996683.3.579.2.593 1952 Unknown [id number] 2.16.840.1.265186.3.579.2.593 1952 Unknown [id number] 2.16.840.1.589810.3.579.2.593 1952 Unknown [id number] 2.16.840.1.311003.3.579.2.593 1952 Unknown [id number] 2.16.840.1.263128.3.579.2.593 1952 Unknown [id number] 2.16.840.1.082155.3.579.2.593 1952 Unknown [id number] 2.16.840.1.467433.3.579.2.593 1952 Unknown [id number] 2.16.840.1.890599.3.579.2.593 1952 Unknown [id number] 2.16.840.1.497391.3.579.2.593 1952 Unknown [id number] 2.16.840.1.632551.3.579.2.593 1952 Unknown [id number] 2.16.840.1.834273.3.579.2.1259 1952 Unknown [id number] 2.16.840.1.746150.3.579.2.1259 1952 Unknown [id number] 2.16.840.1.458554.3.579.2.1259 1952 Unknown [id number] 2.16.840.1.840481.3.579.2.1259 1952 Unknown [id number] 2.16.840.1.459419.3.579.2.125 1952 Unknown [id number] 2.16.840.1.491853.3.579.2.727 1952 Unknown [id number] 2.16.840.1.922801.3.579.2.727 1952 Unknown [id number] 2.16.840.1.978217.3.579.2.727 1952 Unknown [id number] 2.16.840.1.911116.3.579.2.727 1952 Unknown [id number] 2.16.840.1.409407.3.579.2.727 Self-pay Self Pay [id number] Unknown [employer]/BS [id number] Social History Date Type Detail Facility Unknown if ever smoked [facility] Other Start: 03-07-2023 Sex Assigned At N [facility] Other Start: 11-11-2018 End: 05-30-2023 Tobacco smoking status NHIS Never smoked tobacco (finding) [facility] Start: 1950 Sex Assigned At Female F [facility] Tobacco smoking status Never [facility] Start: 03-07-2023 Tobacco use and exposure [...] Assessment Result Facility 05-30-2023 Functional Status N/A [facility] 05-22-2023 Functional Status N/A [facility] 05-14-2023 Functional Status N/A [facility] 02-20-2023 Functional Status N/A [facility] 12-01-2021 Functional Status N/A [facility] Clinical Notes 10-10-2021 to 05-23-2023 Note Date & Type Note Facility 05-23-2023 Note [id number] [facility] 05-22-2023 Hospital Discharg e instructions Patient Education [...] unsweetened, w/added ascorbic acid 1 cup 0.5 [place] 1 cup 0.7 Vegetables Cooked Green beans 1 cup 4.0 Carrots 1/2 cup sliced 2.3 Peas 1 cup 8.8 Potato (baked, with skin) 1 medium potato 3.8 Raw [place] (with peel) 1 cucumber 1.5 Lettuce 1 [...] 8.7 Peanuts 1/2 cup 7.9 Chart from [facility] 2013. SEEK IMMEDIATE MEDICAL CARE IF: You [...] Information adapted from: ExitCare Patient Information 2009 [employer]. [employer] 2012 [email or web address] 05/22/2023 08:58:41 Hemorrhoids, Wrew-iw-Mgri Hemorrhoids Hemorrhoids are swollen veins that may [...] 3 times a day. General instructions Take edli-auh-pduatya and prescription medicines only as told by [...] provider. Document Revised: 09/13/2021 Document Reviewed: 09/13/2021 Storefront Patient Education 2022 Care Team Connect. 05/22/2023 08:58:37 Endoscopy, Care After Procedure [facility] Endoscopy Care After Procedure Please read [...] blood. Document Released: 10/16/2004 Document Re-Released: 08/26/2006 [facility] Patient Information [employer] 05/22/2023 08:58:29 Hiatal Hernia Hiatal Hernia A [...] reduce GERD symptoms. Medicines. These may include: ?Frej-urg-xbdafsa antacids. ?Medicines that make your stomach empty [...] may include: ?Fatty foods, like fried foods. ?[place]ley fruits, like oranges or lemon. ?Other foods [...] Do not drink alcohol. General instructions Take vmwx-ign-ssynumg and prescription medicines only as told by [...] provider. Document Revised: 05/01/2022 Document Reviewed: 05/01/2022 [employer]front Patient Education 2022 Care Team Connect. Follow Up Care 05/14/2023 13:37:06 With:Tho VILLEGAS, RUBA Villanueva, [facility] Address: When: Unknown Comments:Call for any problems. The office will reach out in about one week from procedure date. [facility] 04-22-2023 Evaluation note Encounter Date Diagnosis Assessment Notes Apr, Moderate persistent asthma without complication (ICD-10 - J45.40) [facility] Other 02-02-2024 Evaluation note* Encounter Date Diagnosis Assessment Notes Treatment Notes Treatment Clinical Notes Apr, Moderate persistent asthma with acute exacerbation (ICD-10 - J45.41) [facility] Other 01-30-2024 Evaluation note* Encounter Date Diagnosis [...] Claritin, Singulair and Flonase Scheduled to see police manager. Mar, Gastroesophageal reflux disease with esophagitis without hemorrhage (ICD-10 - K21.00) Avoid lying flat after eating. Avoid eating 2 hours prior to bedtime. Smaller, frequent meals may be better tolerated.Weight loss if overweight.PPI with any heartburn.Monitor for dysphagia. [facility] Other 01-18-2024 Evaluation note* Encounter Date Diagnosis Assessment Notes Treatment Notes Treatment Clinical Notes Mar, Iron deficiency anemia due to chronic blood loss (ICD-10 - D50.0) [facility] Other 12-22-2023 Evaluation note* Encounter Date Diagnosis Assessment Notes Treatment Notes Treatment Clinical Notes Feb, Iron deficiency anemia due to chronic blood loss (ICD-10 - D50.0) [facility] Other 12-20-2023 Evaluation note* Encounter Date Diagnosis Assessment Notes Treatment Notes Treatment Clinical Notes Feb, Anemia (ICD-10 - D64.9) [facility] Other 12-11-2023 Evaluation note* Encounter Date Diagnosis Assessment Notes Treatment Notes Treatment Clinical Notes Feb, Moderate persistent asthma without complication (ICD-10 - J45.40) [facility] Other 12-06-2023 Hospital Discharge instructions Patient Education [...] relieve pelvic muscle tension or spasms. Take fgkr-jwb-lauaoen and prescription medicines only as told by [...] provider. Document Revised: 07/12/2021 Document Reviewed: 07/12/2021 Storefront Patient Education 2022 Care Team Connect. 02/20/2023 09:44:59 Kegel Exercises Kegel Exercises Kegel [...] provider. Document Revised: 07/13/2021 Document Reviewed: 07/13/2021 Storefront Patient Education 2022 Care Team Connect. Follow Up Care 01/31/2022 08:50:25 With:Dewayne VILLEGAS, Asuncion [place], URL, [facility] Address: [address] [place] [phone] When: Unknown Comments:1 [facility]23 Evaluation note* Encounter Date Diagnosis Assessment Notes Treatment Notes Treatment Clinical Notes Feb, Moderate persistent asthma with acute exacerbation (ICD-10 - J45.41) Holding Breo for trial of Trelegy. Avoid dust, mold, fumes as much as possible. Steroid taper to break cycle of coughing Refer to Roping Machine Tender and Soldering Machine Operator Helper when stable Feb, Non-seasonal allergi c rhinitis due to other allergic trigger (ICD-10 - J30.89) Continue FLonase NS Add Astepro NS Continue Claritin and Singulair Feb, Gastroesophageal reflux disease with esophagitis without hemorrhage (ICD-10 - K21.00) Diet instructions: Smaller portions, avoid eating and laying flat, avoid eating or drinking prior to bedtime. Weight loss. Continue PPI [employer] Other 11-21-2023 Evaluation note* Encounter Date Diagnosis Assessment Notes Treatment Notes Treatment Clinical Notes Jan, Age-related osteopor osis without current pathological fracture (ICD-10 - M81.0) Jan, Hypercholesteremia (ICD-10 - E78.00) [employer] Other 11-14-2023 Evaluation note* Encounter Date Diagnosis Assessment Notes Treatment Notes Treatment Clinical Notes Jan, Menopause (ICD-10 - Z78.0) [employer] Other 11-10-2023 Evaluation note* Encounter Date Diagnosis Assessment Notes Treatment Notes Treatment Clinical Notes Jan, Hypercholesteremia (ICD-10 - E78.00) [employer] Other 11-10-2023 Evaluation note* Encounter Date Diagnosis [...] much improved. Offered PFT and referral to Soldering Machine Operator Helper. Jan, Autoimmune thyroidit is (ICD-10 - E06.3) [...] LORENZO (generalized anxiety disorder) (ICD-10 - F41.1) [employer] Other 09-27-2023 Evaluation note* Encounter Date Diagnosis Assessment Notes Treatment Notes Treatment Clinical Notes Nov, Moderate persistent asthma with acute exacerbation (ICD-10 - J45.41) Reviewed medication - continue LABA/ICS and NIKO - continue Singulair, Claritin and Flonase Suggested short course of Steroids and antibiotics. Discussed use of LAMA in combination of what she is presently taking CXR if no improvement [employer] Other 08-23-2023 Evaluation note* Encounter Date Diagnosis Assessment Notes Treatment Notes Treatment Clinical Notes Oct, Mild persistent asthma, uncomplicated (ICD-10 - J45.30) [employer] Other 08-17-2023 Evaluation note* Encounter Date Diagnosis [...] understanding and is agreeable to treatment plan [employer] Other 04-12-2023 NotePROCEDURE: XR FOOT RT MIN [...] Electronically authenticated by: JEROME ESPINOSA Date: 2022-06-27 15:36[facility]03-02-2023 NotePROCEDURE: XR FOOT RT MIN 3 VIEWS [...] Electronically authenticated by: CAMPOS ERAZO Date: 2022-05-17 16:27[facility]02-09-2023 NotePROCEDURE: XR FOOT RT MIN 3 VIEWS [...] authenticated by: JEROME ESPINOSA Date: 2022-04-26 09:37[id number] NotePROCEDURE: XR FOOT RT MIN 3 VIEWS [...] Electronically authenticated by: JEROME ESPINOSA Date: 2022-04-05 14:43[facility]01-19-2023 NotePROCEDURE: XR FOOT RT 2V [...] Electronically authenticated by: JEROME ESPINOSA Date: 2022-04-05 14:41[facility]01-11-2023 NotePROCEDURE: XR FOOT RT MIN [...] Electronically authenticated by: JEROME ESPINOSA Date: 2022-03-28 10:17[facility]12-26-2022 NotePROCEDURE: XR FOOT RT MIN [...] Electronically authenticated by: JEROME ESPINOSA Date: 2022-03-12 09:46[facility]12-19-2022 Evaluation note* Encounter Date Diagnosis Assessment Notes Treatment Notes Treatment Clinical Notes Feb, Acute pain of left shoulder (ICD-10 - M25.512) Feb, Tear of left supraspinatus tendon (ICD-10 - M75.102) A 1/1cc marcaine / kenalog cortisone injection was performed into the subacromial space under sterile technique. Patient tolerated the injection well with no adverse reaction. [employer] Other 09-16-2022 Hospital Discharge instructions Patient Education [...] nerve stimulation). For women, using a medical file clerk to prevent urine leaks. This is a [...] right after experiencing incontinence. General instructions Take witt-eve-itrwmwm and prescription medicines only as told by [...] 04/11/2005 Document Revised: 03/14/2018 Document Reviewed: 06/13/2017 [employer] Patient Education 2020 Care Team Connect. Follow Up Care 10/20/2021 08:23:44 With:Asuncion Buchanan MD, URL, URO Address: When: Unknown [facility] 2022 Evaluation note* Encounter Date [...] the injection well with no adverse reaction. [employer] Other Evaluation + Plan note Future Appointments Appointment Date:01/31/2022 08:00:00 AM Scheduled Provider:Asuncion Buchanan MD Location:[facility] Appointment Type:URO Office Visit [facility] Evaluation + Plan note Future Appointments Appointment Date:02/19/2024 08:00:00 AM Scheduled Provider:Asuncion Buchanan MD Location:[facility] Appointment Type:URO Office Visit [facility] evaluation + Plan note Future Appointments Appointment Date:05/22/2023 08:00:00 AM Scheduled Provider: Location:[facility] Appointment Type:Surgery FT Appointment Date:02/19/2024 08:00:00 AM Scheduled Provider:Asuncion Buchanan MD Location:[facility] Appointment Type:URO Office Visit [facility] Evaluation noteNo InformationNort [employer] Other Evaluation noteNo assessment information available [facility] Work Phone: Hisidub general Narrative - Reported* Type Description Date [...] above Hospitalization History blood transfusion from b [employer] Other Hisjoy[facility] general Narrative - Reported* Type Description Date [...] above Hospitalization History blood transfusion from b [employer] Other Hiskeee general Narrative - Reported* Type Description Date [...] above Hospitalization History blood transfusion from b [employer] Other History general Narrative - Reported* Type [...] above Hospitalization History blood transfusion from b [employer] Other Hislwns general Narrative - Reported* Type Description Date [...] above Hospitalization History blood transfusion from b [employer] Other Hospital course Narrative No data available for this section [facility] Discharge instructions No data available for this section [facility] Progress note No data available for this section [facility] [employer] [facility] [employer] Reason for referral (narrative)* Reason *FU 04/23 Referral for iron deficiency anemia. Diagnosis 1 Iron deficiency anem ia secondary to inadequate dietary iron intake (D50.8) Referral Organization [facility]enny Referring Provider First Name Andrea Referring Provider Last Name [place] Referring Provider Specialty Internal Me dicine Referred Organization [facility] Referred Provider AZAM VILLA Referred Address [address], [place],[address] Referred Provider Specialty Hematology Referral Priority Routine [...] faxed Clinical Notes Include labs results p: [id number] f: [id number] Reason Referral for pe rsistent cough and wheezing Diagnosis 1 Moderate persistent asthma with acute exacerbation (J45.41) Referral Organization [facility] kenny Referring Provider First Name Andrea Referring Provider Last Name [place] Referring Provider Specialty Internal Me dicine Referred Organization [facility] Referred Provider Edouard Espinosa Referred Address [address], [place],[address] Referred Provider Specialty Pulmonary Di seases Referral Priority Routine General Notes Patient w/ allergic rhinitis and asthma w/ deterioration of her symptoms over the past year. Her medications have been maximized and alternative etiology for cough and wheezing addressed. She has been referred to an Roping Machine Tender for evaluation and scheduled for a PFT. [...] dietary iron intake (D50.8) Referral Organization [facility] Referring Provider First Name Andrea Referring Provider Last Name [place] Referring Provider Specialty Internal Me dicine Referred Organization [facility] Referred Address [address],[place], [place],[address] Referred Provider Specialty Gastroentero logy Referral Priority [...] notes locked, referral faxed Clinical Notes f: [id number] [employer] Other Reason for referral (narrative)* Reason *FU 04/23 Referral for iron deficiency anemia. Diagnosis 1 Iron deficiency anem ia secondary to inadequate dietary iron intake (D50.8) Referral Organization [facility] [place] [facility] Referring Provider First Name Andrea Referring Provider Last Name [place] Referring Provider Specialty Internal Me dicine Referred Organization [facility] Referred Provider AZAM VILLA Referred Address [address] [place], [place],[address] Referred Provider Specialty Hematology Referral Priority Routine [...] faxed Clinical Notes Include labs results p: [id number] f: [id number] Reason Referral for pe rsistent cough and wheezing Diagnosis 1 Moderate persistent asthma with acute exacerbation (J45.41) Referral Organization [facility] [place] [facility] Referring Provider First Name Andrea Referring Provider Last Name [place] Referring Provider Specialty Internal Me dicine Referred Organization [facility] Referred Provider Edouard Espinosa Referred Address [address], [place],[address] Referred Provider Specialty Pulmonary Di pura Referral Priority Routine General Notes Patient w/ allergic rhinitis and asthma w/ deterioration of her symptoms over the past year. Her medications have been maximized and alternative etiology for cough and wheezing addressed. She has been referred to an Roping Machine Tender for evaluation and scheduled for a PFT. [...] inadequate dietary iron intake (D50.8) Referral Organization [facility] Referring Provider First Name Andrea Referring Provider Last Name [place] Referring Provider Specialty Internal Me dicine Referred Organization [facility] Referred Address [address] [facility] [address],[place], [place],[address] Referred Provider Specialty Gastroentero logy Referral Priority [...] to Hematology for IV iron and evaluation. [employer] Other Summary Purpose Family History Relationship Condition [...] section and content) DATE CREATED AUTHOR 10/11/2021 [facility] DATE CREATED AUTHOR AUTHOR'S ORGANIZ ATION 07/02/2022 [facility] DATE CREATED AUTHOR AUTHOR'S ORGANIZ ATION 05/30/2023 [facility] EPIC DATE CREATED AUTHOR AUTHOR'S ORGANIZ ATION 05/31/2023 [facility] Care Teams (unrecognized sec tion and content) Team Status: Inactive Member Role Status Dates Espinoza Ruiz MD Attending Provider Active Regional Rehabilitation Director Relationship Specialty Start Date End Date Andrea Golden MD [address] [place] [address] PCP - General Internal Medicine 08/27/22 Team [...] Lisa Em Attending Provider Active Start: Diana [facility] 2023 Team Status: Active Member Role Status [...] BE BASED ON THE PRIMARY CLINICAL RECORDS. [facility] [employer] [facility]. provides no warranty or guarantee of the accuracy or completeness of information in this document.
[2023-06-27 10:38] LABS: Basophils Percent Auto 0.2 % (0.2-2.0); Eosinophils Percent Auto 0.2 % (0.9-7.0); Hematocrit 36.9 % (36.0-48.0); Immature Granulocytes Abs Auto 0.17 10^3/uL (0.00-0.03); Immature Granulocytes Pct Auto 1.4 % (0.0-0.5); Lymphocytes Absolute Auto 2.2 10^3/uL (1.2-3.8); Lymphocytes Percent Auto 18.3 % (20.5-60.0); Mean Corpuscular HGB Conc 32.5 g/dL (29.9-35.2); Mean Corpuscular Hemoglobin 28.6 pg (26.7-34.0); Mean Corpuscular Volume 87.9 fL (81.0-99.0); Mean Platelet Volume 9.7 fL (9.5-13.5); Monocytes Absolute Auto 1.4 10^3/uL (0.3-0.8); Monocytes Percent Auto 11.8 % (1.7-12.0); Neutrophils Percent Auto 68.1 % (43.0-75.0); Platelet Count 378 10^3/uL (150-450); Red Cell Distribution Width 19.9 % (11.0-15.0); White Blood Count 11.8 10^3/uL (4.0-11.0)
[2023-06-27 11:01] LABS: Percent Iron Saturation 20.8 %
== END 2023-06-27 10:04 | disposition home or self-care (01) ==
LOC: LAB 10:03
PROVIDERS: PCP Internal Medicine; Visit Provider Internal Medicine Hematology & Oncology
DX: D64.9 Anemia, unspecified (principal); D50.9 Iron deficiency anemia, unspecified; K90.9 Intestinal malabsorption, unspecified
CPT/HCPCS: 36415; 82728; 83540; 83550; 85025

== ENCOUNTER 2023-07-02 08:01 | Outpatient (RCR) | payer MEDICARE, OTHER, SELFPAY ==
[2023-07-03 18:07] LABS: Albumin 3.6 g/dL (2.9-4.4); Alpha-1-Globulin 0.2 g/dL (0.0-0.4); Alpha-2-Globulin 0.9 g/dL (0.4-1.0); Free Kappa Lt Chains,S 12.1 mg/L (3.3-19.4); Free Lambda Lt Chains,S 10.7 mg/L (5.7-26.3); Gamma Globulin 0.5 g/dL (0.4-1.8); Immunoglobulin A, Qn, Serum 83 mg/dL (87-352); Immunoglobulin G, Qn, Serum 509 mg/dL (586-1602); Immunoglobulin M, Qn, Serum 51 mg/dL (26-217); Kappa/Lambda Ratio,S 1.13 (0.26-1.65); Protein, Total 6.1 g/dL (6.0-8.5)
[2023-07-08 00:07] LABS: Immunoglobulin E, Total 119 IU/mL (6-495)
== END 2023-07-16 23:59 | disposition home or self-care (01) ==
LOC: INF 08:01
PROVIDERS: PCP Internal Medicine; Visit Provider Internal Medicine Hematology & Oncology
DX: D50.9 Iron deficiency anemia, unspecified (principal); K90.9 Intestinal malabsorption, unspecified; D64.9 Anemia, unspecified
CPT/HCPCS: 36415; 82784; 82785; 83521; 84155; 84165; 86334; G0463

== ENCOUNTER 2023-07-24 09:25 | Outpatient (OUT) | payer MEDICARE, OTHER, SELFPAY ==
--- NOTE | 2023-07-24 | XR_ITS ---
[address] [address] Patient Name: SIA ALEXANDER MRN: [id number] date: 1950 Sex: F Assigned Patient Location: Current Patient Location: Accession/Order Number: [id number] Exam Date: 07/24/2023 09:26 Report Date: 07/24/2023 14:03 At the request of: BASHIR DANIELLE Procedure: XR foot RT min 3V PROCEDURE: XR foot RT min 3V COMPARISON: 10/03/2022 HISTORY: RIGHT FOOT PAIN FINDINGS: BONES:Stable internal fixation of a fifth metatarsal fracture with a single screw. No acute fracture, dislocation or mechanical failure. Enthesopathic spurring of the calcaneus at the Achilles and plantar insertions. Mild degenerative change first metatarsal phalangeal joint SOFT TISSUES:Negative. No visible soft tissue swelling. EFFUSION:None visible. OTHER: Negative. XR/XR foot RT min 3V IMPRESSION: Stable degenerative and postsurgical changes Electronically authenticated by: CAMPOS SHAH Date: 07/24/2023 14:03
== END 2023-07-24 09:26 | disposition home or self-care (01) ==
LOC: EC 09:25
PROVIDERS: PCP Internal Medicine; Visit Provider Podiatrist Foot & Ankle Surgery
DX: M79.671 Pain in right foot (principal); Z98.890 Other specified postprocedural states
CPT/HCPCS: 73630

== ENCOUNTER 2023-11-26 06:56 | Outpatient (RCR) | payer MEDICARE, OTHER, SELFPAY ==
[2023-11-22 08:15] LABS: Basophils Percent Auto 0.4 % (0.2-2.0); Eosinophils Absolute Auto 0.6 10^3/uL (0.0-0.7); Hematocrit 38.9 % (36.0-48.0); Hemoglobin 12.8 g/dL (12.0-16.0); Immature Granulocytes Abs Auto 0.02 10^3/uL (0.00-0.03); Immature Granulocytes Pct Auto 0.3 % (0.0-0.5); Lymphocytes Percent Auto 28.3 % (20.5-60.0); Mean Corpuscular HGB Conc 32.9 g/dL (29.9-35.2); Mean Corpuscular Hemoglobin 30.2 pg (26.7-34.0); Mean Corpuscular Volume 91.7 fL (81.0-99.0); Mean Platelet Volume 10.1 fL (9.5-13.5); Monocytes Absolute Auto 0.6 10^3/uL (0.3-0.8); Monocytes Percent Auto 8.3 % (1.7-12.0); Neutrophils Absolute Auto 3.8 10^3/uL (1.4-6.5); Neutrophils Percent Auto 53.7 % (43.0-75.0); Platelet Count 350 10^3/uL (150-450); Red Blood Count 4.24 10^6/uL (4.20-5.40); Red Cell Distribution Width 13.5 % (11.0-15.0); White Blood Count 7.1 10^3/uL (4.0-11.0)
[2023-11-22 08:37] LABS: Alanine Aminotransferase 26 U/L (14-59); Albumin Globulin Ratio 1.3; Albumin Level 3.7 g/dL (3.4-5.0); Alkaline Phosphatase 80 U/L (46-116); Anion Gap 12.9; Aspartate Amino Transferase 21 U/L (15-37); BUN Creatinine Ratio 18.8; Bilirubin Total 0.5 mg/dL (0.2-1.0); Carbon Dioxide 29.7 mmol/L (21.0-32.0); Chloride 104 mmol/L (98-107); Estimated GFR (African America >60 (>=60); Estimated GFR (Non-African Ame >60 (>=60); Globulin 2.9 g/dL; Glucose 103 mg/dL (74-106); Potassium 3.6 mmol/L (3.5-5.1); Sodium 143 mmol/L (136-145); Total Protein 6.6 g/dL (6.4-8.2)
[2023-11-22 09:45] LABS: Percent Iron Saturation 19.5 %
== END 2023-12-16 23:59 | disposition home or self-care (01) ==
LOC: HEMC 06:56
PROVIDERS: PCP Internal Medicine; Visit Provider Internal Medicine Hematology & Oncology
DX: D50.9 Iron deficiency anemia, unspecified (principal); K90.9 Intestinal malabsorption, unspecified; D64.9 Anemia, unspecified; K21.9 Gastro-esophageal reflux disease without esophagitis
CPT/HCPCS: 36415; 80053; 82728; 83540; 83550; 85025; G0463

== ENCOUNTER 2024-02-03 07:22 | Outpatient (OUT) | payer MEDICARE, OTHER, SELFPAY ==
--- NOTE | 2024-02-03 | MM_ITS ---
Patient Name: SIA ALEXANDER MR#: [id number] : 1950 Exam Date: 02/03/2024 Ordering Doctor: DR. MANE ARCE D.O. RADIOLOGY REPORT PROCEDURE: MM TOMOSYNTHESIS SCREENING BI COMPARISON: MM TOMOSYNTHESIS SCREENING BI, 01/30/2023. MG MAMM SCREEN 3D ALLEGRA CAD, 01/29/2022. MG MAMM SCREEN 3D ALLEGRA CAD, 01/25/2021. MG MAMM ALLEGRA SCRN W CAD DIG, 02/17/2013. INDICATIONS: SCREENING Calculator Name NCI Breast Cancer Risk Assessment Tool 5 Year Breast Cancer Risk 6.60% Lifetime Breast Cancer Risk 17.20% Personal Breast Cancer No Personal Ovarian Cancer No Treatments None Family Cancers Sister with breast cancer at age 42; Aunt-maternal with breast cancer at age 38; Aunt-maternal with breast cancer at age ~55; Aunt-maternal with breast cancer at age ~56; Mother with pancreatic cancer at age 52; Sister with breast cancer at age 59. LOCATION: [facility] BREAST COMPOSITION: There are scattered areas of fibroglandular density. FINDINGS: DIAGNOSTIC CATEGORY 1--NEGATIVE. RIGHT BREAST: No significant suspicious finding. No significant change has occurred. LEFT BREAST: No significant suspicious finding. No significant change has occurred. RECOMMENDATIONS: ROUTINE MAMMOGRAM AND CLINICAL EVALUATION IN 12 MONTHS. PLEASE NOTE: A NORMAL MAMMOGRAM DOES NOT EXCLUDE THE POSSIBILITY OF BREAST CANCER. A CLINICALLY SUSPICIOUS PALPABLE LUMP SHOULD BE BIOPSIED. Dictated by: Frederick Andrade M.D. on 02/03/2024 at 11:59 Approved by: Frederick Andrade M.D. on 02/03/2024 at 12:09
--- OUTSIDE RECORDS SUMMARY | 2024-02-03 07:28 | XMS_ITS | CCD ---
Author Organization [facility] Care Team Providers Care Detective Sergeant Name Role Phone Espinoza Ruiz Unavailable ANDREA GOLDEN Primary Care Physician [phone] Andrea Golden Unavailable Luma Chirinos Unavailable PABLO, DR CAMPOS Nixon Consulting Unavailable CHICO, DR WILKES Primary Care Unavailable KIKI CROWELL Attending Unavailable KIKI CROWELL Admitting Unavailable KIKI CROWELL Consulting Unavailable JESÚS, DR JEROME Winkler Consulting Unavailable HAY ., DR MONZON Attending Unavailable HAY ., DR MONZON Admitting Unavailable BALL, DR WILKES Primary Care Unavailable HAY ., DR MONZON Consulting Unavailable OLEESPINOZA STONE Consulting Unavailable BASHIR DANIELLE Consulting Unavailable CHICO, [...] KIKI CROWELL Consulting Unavailable Shannan Webster Unavailable Andrea Golden MD Primary Care Provider OZIEL MAHER Attending Unavailable LAKIA PACE Attending Unavailable OZIEL MAHER Referring Unavailable Unavailable Primary Care Provider UnavailLUMA Latif Attending Unavailable LAKIA PACE W Referring Unavailable Mouchli, Mohamad A. Attending Unavailable Mouchli, Mohamad A. Attending Unavailable Mouchli, Mohamad A. Attending Unavailable Mouchli, Mohamad A. Attending Unavailable Mouchli, Mohamad A. Attending Unavailable Mouchli, Mohamad A. Attending Unavailable AnitaeAsuncion M. Attending Unavailable LueVanessahy M. Attending Unavailable Lue Asuncion M. Attending Unavailable Mouchli, Mohamad A. Attending Unavailable Mouchli, Mohamad A. Referring Unavailable Mouchli, Mohamad A. Admitting Unavailable Timmis, Marci H Admitting Unavailable Timmis, Marci H Attending Unavailable Timmis, Marci H Referring Unavailable Mouchli, Mohamad A. Attending Unavailable Mouchli, Mohamad A. Admitting Unavailable Lue, Asuncion M. Admitting Unavailable AnitaeVanessahy M. Attending Unavailable Jones Ace MD Unavailable Chrissy Hector MD Unavailable [phone] Andrea Golden DO Primary Care Provider Andrea Golden MD Primary Care Provider KASEY FALLON Attending Unavailable JONES ACE Referring Unavaila ble ANDREA GOLDEN Primary Care Unavailable KASEY FALLON Referring Unavailable BEBEBASEKCHARITO Attending Unavailable RAMBASEKCHARITO Attending Unavailable RAMBASEK, CHARITO E Attending Unavailable TIMMIS, MARCI H Attending Unavailable RAMBASEK, CHARITO E Attending Unavailable TIMMIS, MARCI H Attending Unavailable MADISON BURNS Attending Unavailable FELTER, ANA A Attending Unavailable CHARITO VASQUEZ Attending Unavailable CHARITO VASQUEZ Attending Unavailable CHARITO VASQUEZ Attending Unavailable MARSHA LAL Attending Unavailable Allergies Allergy Classification Reported Allergen(s) Allergy Type Date of Onset Reaction(s) Facility (20 sources) Amoxicillin; Translations: [AMOXICILLIN] Drug Allergy 10-22-19 19 Rash, Unknown, Other: See Comments [facility] (20 sources) Sulfacetamide / Sulfur Drug Allergy Unknown [facility] Other (20 sources) idp dye Propensity to adverse reactions 06-21-19 24 Unknown, Unknown Reaction [facility] (15 sources) Sulfonamides (Antibiotic); Translations: [SULFA (SULFONAMIDE ANTIBIOTICS)] Allergy to substance 12-08-19 08 Unknown Reaction [facility] (10 sources) wasp venom; Translations: [WASP VENOM] Allergy to substance 10-22-19 19 Anaphylaxis [facility] (7 sources) bee venom protein (honey bee); Translations: [BEE VENOM PROTEIN (HONEY BEE)] Allergy to substance 10-22-19 19 Anaphylaxis [facility] (11 sources) Iodinated Contrast Media; Translations: [IODINATED CONTRAST MEDIA] Allergy to substance 12-08-19 08 Other, Shortness of breath, Unknown [facility] (13 sources) Bee/Wasp/Ant venom; Translations: [Bee Stings] Drug allergy Dyspnea (finding), Weal (disorder) [facility] [place] (20 sources) Contrast media; Translations: [contrast media (iodine-based)] Drug allergy 12-08-19 08 Dyspnea (finding), Weal (disorder) [facility] [place] (20 sources) Iodine; Translations: [iodine] Drug Allergy 01-15-20 23 Unknown (qualifier value), Unknown [facility] [place] (16 sources) Penicillin; Translations: [penicillin] Drug Allergy 09-14-19 24 Eruption of skin (disorder) [facility] [place] (13 sources) Sulfonamides (Antibiotic); Translations: [sulfa drugs] Drug allergy Angioedema (disorder) [facility] [place] (1 source) bee venom Drug allergy (disorder) [facility] (1 source) Iodine (And Iodine Containting Drugs) Drug allergy (disorder) 01-19-20 15 [facility] (4 sources) Penicillins Drug allergy (disorder) 06-21-19 24 Unknown Reaction [facility] (1 source) Sulfonamides (Antibiotic) Drug allergy (disorder) 03-18-18 56 [facility] (2 sources) Iodine / Sodium Iodide Drug Allergy Unknown [facility] Other (18 sources) Substance with penicillin structure and antibacterial mechanism of action (substance) Drug allergy Unknown [facility] Other (20 sources) Substance with sulfonamide structure and antibacterial mechanism of action (substance) Drug allergy 12-08-19 08 Unknown [facility] Other (2 sources) Allergies Reconciled Propensity to adverse reactions Unknown [facility]ART[facility] Other (2 sources) patient allergy list reviewed by nurse or physicia Propensity to adverse reactions 09-25-19 Comment:Done [facility] Other (4 sources) Penicillin G Drug Allergy 01-15-20 23 [facility] (3 sources) Sulfacetamide Drug Allergy 06-21-19 24 Unknown Reaction [facility] (3 sources) Sulfur Drug Allergy 06-21-19 24 Unknown Reaction [facility] (3 sources) SULFACETAMIDE [id number]; Translations: [SULFACETAMIDE ETE-[id number]] Propensity to adverse reactions to drug (disorder) 09-14-19 24 [facility] Repository (1 source) Contrast media; Translations: [CONTRAST DYE] Propensity to adverse reactions to drug (disorder) 12-08-19 08 [facility] Repository Medications Current Medications Medication Drug Class(es) Dates [...] day for 30 days Feb, Active acetaminophen 325 mg oral tablet (1 source) take 2 tablets by mouth every six hours as needed acetaminophen (TYLENOL) 325 mg tablet Take 650 mg by mouth every 6 hours as needed. Active acetaminophen 250 mg / aspirin 250 mg / caffeine 65 mg oral tablet (4 sources) Platelet Aggregation Inhibitor, Nonsteroidal Anti-inflammatory Drug, Central Nervous System Stimulant, Methylxanthine Start: 10-21-2018 Aspirin-Acetaminop hen-Caffeine (Pain-Off) 250-250-65 mg Tablet Active 2 TAB PO As Directed October 21, 2018 12:00am [id number] 200 actuat albuterol 0.09 mg/actuat metered dose inhaler (20 sources) beta2-Adrenergic Agonist Start: 09-02-2019 take 2 puff(s) by inhalation every four hours ProAir HFA 90 mcg/inh inhalation aerosol 2 puff(s), Inhalation, q4hr Shortness of breath or wheezing, Refill(s) 0 Start Date: 09/02/19 Status: Ordered Start: 10-21-2018 Albuterol Sulf ate Active 2 PUFF INHALATION As Directed October 21, 2018 12:00am albuterol HFA 90 mcg/act inhaler Inhale 2 puffs Active albuterol HFA (P ROAIR HFA) 90 mcg/actuation inhaler Inhale 2 Puffs as instructed. Active Albuterol Sulfat e HFA 108 (90 Base) [...] 1 tab(s), Oral, qWeek, Refills(s) 0, Prophylaxis Start Date: 6/17/20 Status: Ordered take 1 tablet by mouth once carolyn y Fosamax 70 MG tablet 1 tablet 30 minutes before the first food, beverage or medicine of the day with plain water Orally for 30 day(s) Active amLODIPine 5 mg oral tablet (20 sources) Dihydropyridine Calcium Channel Bebe Start: 02-20-2023 End: 05-23-2023 amLODIPine (Norvasc) 5 MG tablet Refills(s) 0 02/20/2023 Active aspirin 325 mg oral tablet (1 source) Platelet Aggregation Inhibitor, Nonsteroidal Anti-inflammatory Drug aspirin 325 mg cap Take by mouth. Active aspirin 770 mg / caffeine 60 mg / orphenadrine citrate 50 mg oral tablet (4 sources) Platelet Aggregation Inhibitor, Nonsteroidal Anti-inflammatory Drug, [...] tab(s), Oral, Daily, Refills(s) 0, High cholesterol Start Date: 09/02/19 Status: Ordered azelastine hydrochloride 0.137 mg/actuat metered dose nasal spray (12 sources) Histamine-1 Receptor Antagonist Start: 05-16-2023 End: 05-15-2024 take 2 spray(s) nasal route in the morning azelastine (Astelin) 0.1 % nasal spray Indications: Chronic rhinitis Administer 2 sprays into each nostril in the morning and 2 sprays before bedtime. Use in each nostril as directed. 90 mL 3 05/16/2023 05/15/2024 Active Start: 02-18-2023 take 2 spray(s) nasa l route twice daily Astepro 205.5 MCG/SPRAY 2 sprays in each nostril Nasally bid Feb, Active benazepril hydrochloride 10 mg oral tablet (20 sources) Angiotensin Converting Enzyme Inhibitor Start: 10-21-2018 End: 12-27-2023 take 10 mg by mouth once daily Benazepril Active 10 MG PO Daily October 21, 2018 12:00am betamethasone 1 mg/ml topical cream (20 sources) Corticosteroid Start: 09-17-2023 betamethasone valerate (Valisone) 0.1 % cream Indications: Lichen sclerosus et atrophicus Apply to affected area twice daily, Replace previous sent script 60 g 3 09/17/2023 Active Start: 03-13-2023 betamethasone valerate (Valisone) 0.1 % cream Indications: Lichen sclerosus et atrophicus Apply to affected area twice daily, Replace previous sent script 60 g 3 03/13/2023 Active Start: 10-21-2018 Betamethasone Valerate Active 1 APPLIC TOPICAL As Directed October 21, 2018 12:00am betamethasone va lerate 0.1 % cream Apply to affected area. Active Betamethasone No t-Taking/PRN Betamethasone No t-Taking Betamethasone Ac tive Breo Ellipta 200 mcg-25 mcg/inh inhalation powder (1 source) Start: 09-02-2019 take 1 puff(s) by inhalation once daily Breo Ellipta 200 mcg-25 mcg/inh inhalation powder 1 puff(s), Inhalation, Daily, Refill(s) 0 Start Date: 09/02/19 Status: Ordered budesonide 0.25 mg/ml inhalation suspension (3 sources) Corticosteroid Start: 08-20-2023 End: 08-19-2024 take 2 mL by mouth in the morning budesonide (Pulmicort) 0.5 MG/2ML nebulizer solution Indications: Chronic maxillary sinusitis Take 2 mL (0.5 mg) by nebulization in the morning. Rinse mouth with water after use to reduce aftertaste and incidence of candidiasis. Do not swallow.. 60 mL 11 08/20/2023 08/19/2024 Active calcium carbonate 600 mg chewable tablet (9 sources) Start: 09-04-2019 take 1 tablet by [...] Three times daily October 21, 2018 12:00am Calcium Carbonate / vitamin D3 (1 source) calcium carbonate/vitamin D3 (CALCIUM + D ORAL) Take by mouth. Active cetirizine hydrochloride 10 mg oral tablet (7 sources) Histamine-1 Receptor Antagonist Start: 10-18-19 End: 10-18-19 take 1 tablet by mouth once daily as needed cetirizine (ZyrTEC) 10 MG tablet Indications: Chronic pansinusitis Take 1 tablet (10 mg) by mouth Daily as needed for allergies 90 tablet 3 10/18/2023 10/17/2024 Active Start: 08-15-2023 Zyrtec Daily, Refills(s) 0 Start Date: 08/15/23 Status: Ordered Cetirizine 10 mg cap Take by mouth. Active cholecalciferol 0.05 mg oral capsule (4 sources) Vitamin D Start: 05-18-2022 take 1 capsule by mouth in the morning RA Vitamin D-3 50 MCG (1999 UT) capsule Take 50 mcg by mouth in the morning. 05/18/2022 Active cholecalciferol, vitamin D3, (D3-1999 ORAL) (1 source) cholecalciferol, vitamin D3, (D3-2000 ORAL) Take by mouth. Active codeine phosphate 2 mg/ml / guaiFENesin 20 mg/ml oral solution (20 sources) Opioid Agonist Start: 08-09-2023 End: 08-09-2023 take 1 mL by mouth every six hours Codeine-Guaifenes in Active 5 ML PO Every 6 hours 200 August 09, 2023 4:54pm Start: 06-21-2023 take 5 mL by mouth t hree times daily as needed guaiFENesin-codeine (Robitussin-AC) 100-10 MG/5ML syrup Take 5 mL by mouth 3 (three) times a day as needed 06/21/2023 Active Start: 06-19-2023 End: 08-09-2023 take 1 mL by mouth every six hours Codeine-Guaifenesin Discontinued 5 ML PO Every 6 hours 200 June 19, 2023 12:00am August 09, 2023 1:02pm Start: 06-19-2023 take 1 mL by mouth e very six hours Codeine-Guaifenesin Active 5 ML PO Every 6 hours 200 June 19, 2023 12:00am Start: 04-23-2023 take [...] for cough for 10 days Dec, Not-Taking codeine phosphate/guaifenesin (CODEINE-GUAIFENESIN ORAL) (1 source) codeine phosphate/guaifenesin (CODEINE-GUAIFENESIN ORAL) Take by mouth. Active cycloSPORINE 0.5 mg/ml ophthalmic suspension (20 sources) Calcineurin Inhibitor Immunosuppressant Star t: 08-0 09-04 take 1 drop(s) into the eye(s) twice daily Cyclosporine (Restasis) 0.05 % Dropperette Active 1 DROPS OPHTHALMIC Twice daily October 21, 2018 12:00am End: 12-27-2023 take 1 drop(s) into the eye(s) twice daily cycloSPORINE (RESTASIS) 0.05 % ophthalmic emulsion 1 Drop twice daily. 12/27/2023 Discontinued (Other) doxycycline hyclate 100 mg oral capsule (5 sources) Tetracycline-class Drug Start: 06-21-2023 take 100 mg by mouth twice daily Doxycycline Hyclate Active 100 MG PO Twice daily 20 August 20, 2023 12:00am take 1 tablet by mouth in the mo rning doxycycline (Adoxa) 100 MG tablet Take 100 mg by mouth in the morning and 100 mg before bedtime. Take with a full glass of water and do not lie down for at least 30 minutes after. Active enteric contrast (will be provided with radiology test) (1 source) Start: 10-31-2023 End: 11-01-2023 enteric contrast (will be provided with radiology test) For CT ENTEROGRAPHY W IVCON order Administer, As Directed One Time Only, via Oral, Rectal, both Oral and Rectal, Enteric Tube, Stoma or Indwelling Catheter, Enteric Contrast as designated per enteric contrast guidelines. 1 Each 0 10/31/2023 11/01/2023 Active Epipen (20 sources) alpha-Adrenergic Agonist, beta-Adrenergic Agonist, Catecholamine Start: 09-04-2019 inject 0.3 mg by intramuscular injection once as needed EpiPen 2-Giovani 0.3 mg, IntraMuscular, Once, PRN Anaphylaxis, Refills(s) 0 Start Date: 09/04/19 Status: Ordered Start: 09-04-2019 inject 0.3 mg by int ramuscular injection once EpiPen 2-Giovani 0.3 mg, IntraMuscular, Once, Refills(s) 0 Start Date: 09/04/19 Status: Ordered EpiPen 2-Giovani 0.3 MG/0.3ML injection syringe as directed Injection Active EPINEPHrine (EPI PEN) 0.3 mg/0.3 mL auto-injector Inject 0.3 mg intramuscularly as needed. Active EPINEPHrine 0.3 MG/0.3ML Injection Active estradiol 0.1 mg/ml vaginal cream (20 sources) Estrogen Start: 02-20-2023 estradiol (Est race) 0.1 MG/GM vaginal cream See Instructions, 42.5 gm, Refill(s) 0, apply pea sized amount to urethra 2x/wk, [email or web address], 158, cm, 02/20/23 8:48:00 EST, Height/Length Dosing, 68.5, kg, 02/20/23 8:48:00 EST, Weight Dosing 02/20/2023 Active Start: 02-20-2023 estradiol 0.1 mg/g Vag Crm See Instructions, 42.5 gm, Refill(s) 0, apply pea sized amount to urethra 2x/wk, [facility], 158, cm, 02/20/23 8:48:00 EST, Height/Length Dosing, 68.5, kg, 02/20/23 8:48:00 EST, Weight Dosing Start Date: 02/20/23 Status: Ordered Start: 04-13-2021 estradiol 0.1 mg/g vaginal cream See Instructions, Apply pea sized amount to external urethral 3 times a week for 2 weeks (at bedtime), then twice a week after for maintenance, # 42.5 gm, Refills(s) 1, Pharmacy: [address], 158, cm, 04/13/21 9:47:00 EST, Height/Length Do... Start Date: 04/13/21 Status: Ordered Start: 10-21-2018 End: 10-21-2018 Estradiol (Yuvafem) 10 mcg T ablet Active 10 MCG TABLET Twice a Week October 21, 2018 12:00am Estradiol (VAGIF EM) 10 mcg tab vaginal tablet Use 10 mcg vaginally once daily. Active famotidine 20 mg oral tablet (20 sources) Histamine-2 Receptor Antagonist Start: 02-20-2023 famotidine (Pepcid) 20 MG tablet Take by mouth 02/20/2023 Active take 1 tablet by grzegorz th once daily at bedtime Famotidine 20 MG TAKE 1 TABLET AT BEDTIM E Orally Once a day Active fluocinonide 0.5 mg/ml topical solution (4 sources) Corticosteroid Start: 03-07-2023 fluocinonide (Lidex) 0.05 % external solution Indications: Pruritus Apply to affected areas on the scalp, up to twice a day when flared, 30 day supply 60 mL 11 03/07/2023 Active fluticasone propionate 0.093 mg/actuat metered dose nasal spray (20 sources) Corticosteroid Start: 09-23-2023 End: 12-30-2023 take 1 spray(s) nasal route in the morning Fluticasone Propionate (Xhance) 93 MCG/ACT Exhaler Suspension Indications: Chronic pansinusitis Administer 1 spray into affected nostril(s) in the morning and 1 spray before bedtime. 48 mL 3 12/30/2023 Active Start: 07-02-2023 End: 07-01-2024 take 2 spray(s) nasal route once daily fluticasone (Flonase) 50 MCG/ACT nasal spray Indications: Chronic pansinusitis Administer 2 sprays into each nostril Daily Shake gently. Before first use, prime pump. After use, clean tip and replace cap. 16 g 11 07/02/2023 07/01/2024 Active Start: 09-02-2019 fluticasone 0. 05 mg/inh Nasal Donovan 2 spray(s), Nasal, Daily, Refill(s) 0 Start Date: 09/02/19 Status: Ordered Start: 10-21-2018 End: 05-23-2023 Fluticasone Propionate Activ e 2 SPRAY INTRANASAL Daily May 23, 2023 5:44pm fluticasone prop ionate (XHANCE) 93 mcg/actuation nasal spray Use in each nostril two times a day. Active take 2 spray(s) nasa l route [...] PUFF INHALATION Daily October 21, 2018 12:00am fluticasone-aiden nterol (BREO ELLIPTA) 100-25 mcg/dose inhaler Inhale 1 Inhalation as instructed once daily. Active Breo Ellipta 200 -25 MCG/ACT USE 1 INHALATION ORALLY DAILY Inhalation Once a day for 90 days Active take 1 puff(s) by in halation once daily Breo Ellipta 100-25 MCG/ACT 1 puff Inhal ation Once a day for 90 days Active take 1 puff(s) by in halation once daily BREO ELLIPTA 200/25 mcg 1 puff Inhalatio n daily Active fluticasone 0.05 mg/inh Nasal Donovan (11 sources) Start: 09-02-2019 fluticasone 0.05 mg/inh Nasal Donovan 2 spray(s), Nasal, Daily, Refill(s) 0 Start Date: 09/02/19 Status: Ordered ibuprofen 200 mg oral capsule (1 source) Nonsteroidal Anti-inflammatory Drug Ibuprofen 200 mg cap Take by mouth every 6 hours as needed. Active iron bis-glycinat/vit C/FA/B12 (GENTLE IRON ORAL) (1 source) iron bis-glycinat/vit C/FA/B12 (GENTLE IRON ORAL) Take by mouth. Active iron polysaccharide complex (FERREX 150 ORAL) (1 source) iron polysacchar jie complex (FERREX 150 ORAL) Take by mouth every other day. Active iv contrast (will be provided with radiology test) (1 source) Start: 10-31-2023 End: 11-01-2023 iv contrast (will be provided with radiology test) CT Enterography W Inject, intravenously, once for 1 dose.No IV access, insert saline lock prior to the beginning of sedation, infusion, injection of imaging exam. Discontinue saline lock post exam. If Pt. has a central line or IVAD, may access for administration according to line specific nursing protocol. Once exam is complete flush line and de-access according to line specific nursing protocol in the CT contrast administration guidelines link. 1 Each 0 10/31/2023 11/01/2023 Active levoFLOXacin 750 mg oral tablet (5 sources) Quinolone Antimicrobial Start: 04-16-2023 take 1 tablet by mouth every twenty-four hours levoFLOXacin 750 MG 1 tablet Orally Once a day for 5 days Mar, Active 12 hr loratadine 5 mg / pseudoephedrine sulfate 120 mg extended release oral tablet (17 sources) alpha-Adrenergic Agonist Start: 04-25-2022 take 5-120 [...] TAB PO Daily October 21, 2018 12:00am take 1 tablet by grzegorz th once in the morning, then take 1 tablet by mouth every twelve hours at bedtime loratadine-pseudoephedrine ER (Claritin-D 12-hour) 5-120 MG 12 hr tablet Take 1 tablet by mouth in the morning and 1 tablet before bedtime. Do not crush, chew, or split.. Active LORazepam 0.5 mg oral tablet (15 sources) Benzodiazepine Start: 01-25-2023 LORazepam 0.5 MG 1/2 - 1 Orally Once a day as needed for anxiety for 30 days Jan, Active metoclopramide 10 mg oral tablet (5 sources) Dopamine-2 Receptor Antagonist Start: 07-12-2023 take 1 tablet by mouth once Reglan 10 mg Tab 10 mg = 1 tab(s), Oral, Once, # 1 tab(s), Refills(s) 0, called to pharmacy (Rx) Start Date: 07/12/23 Status: Ordered Start: 07-12-2023 metoclopramide (Reglan) 10 MG tablet Take 10 mg by mouth in the morning and 10 mg at noon and 10 mg in the evening and 10 mg before bedtime. 07/12/2023 Active metroNIDAZOLE 0.0075 mg/mg vaginal gel (20 sources) Nitroimidazole Antimicrobial met roNIDAZOLE (METROGEL) 0.75 % Vaginal Gel Use 1 Applicatorful vaginally daily at bedtime. Active metroNIDAZOLE 0. 75 % 1 application to affected area Externally Twice a day Not-Taking/PRN 24 hr mirabegron 50 mg extended release oral tablet (1 source) beta3-Adrenergic Agonist Start: 12-01-2021 take 1 tablet by mouth once daily Myrbetriq 50 mg oral tablet, extended release 50 mg = 1 tab(s), Oral, Daily, # 30 tab(s), Refills(s) 6, [facility]: [id number], 158, cm, 12/01/21 9:55:00 EDT, Height/Length Dosing, 68, kg, 12/01/21 9:55:00 EDT, Weight Dosing Start Date: 12/01/21 Status: Ordered mv-min/iron/folic/ calcium/vitK (WOMEN'S MULTIVITAMIN ORAL) (1 source) mv-min/iron/foli c/ca lcium/vitK (WOMEN'S MULTIVITAMIN ORAL) Take by mouth. Active nabumetone 750 mg oral tablet (4 sources) Nonsteroidal Anti-inflammatory Drug Start: 10-21-2018 take 1500 mg by mouth once daily Nabumetone Active 1500 MG PO Daily October 21, 2018 12:00am nitrofurantoin, macrocrystals 100 mg oral capsule (1 source) Nitrofuran Antibacterial nitrofurantoin macrocrystal (MACRODANTIN) 100 mg capsule 100 mg by ORAL/FEEDING TUBE route. Active omeprazole 40 mg delayed release oral capsule (20 sources) Proton Pump Inhibitor Start: 10-21-2018 take 40 mg by mouth once daily Omeprazole Active 40 MG PO Daily October 21, 2018 12:00am 12 hr orphenadrine citrate 100 mg extended release oral tablet (7 sources) Muscle Relaxant Start: 02-06-2016 orphenadrine ER (NORFLEX) 100 mg tablet Two tablets daily as needed 40 tablet 0 02/06/2016 Active pain off aspirin (1 source) Start: 04-13-2021 pain off aspirin pain off aspirin Start Date: 04/13/21 Status: Ordered pantoprazole 40 mg delayed release oral tablet (20 sources) Proton Pump Inhibitor Start: 12-11-2019 take 1 tablet by mouth in the morning pantoprazole (ProtoNix) 40 MG EC tablet Indications: Gastroesophageal reflux disease without esophagitis Take 1 tablet (40 mg) by mouth in the morning and 1 tablet (40 mg) before bedtime. Do not crush, chew, or split.. 60 tablet 11 09/23/2023 Active take 1 tablet by mouth twice kanika ly pantoprazole DR (PROTONIX) 40 mg tablet Take 40 mg by mouth two times a day. Active polyethylene glycol [id number] [id number] mg / potassium chloride 2970 mg / sodium bicarbonate 6740 mg / sodium chloride 5860 mg / sodium sulfate 96269 mg powder for oral solution (1 source) Osmotic Laxative Start: 12-27-2023 peg 3350-Electrolytes (GOLYTELY) 236-22.74-6.74 -5.86 gram suspension Indications: Iron deficiency anemia due to chronic blood loss Add water to powder in the jug up to the fill line. Starting at 6pm the evening before the colonsocopy, drink 8 oz every 15 minutes until half to three quarters of the jug is consumed AND returns are clear. Take a break. Finish the remainder of the jug 4 hours before your procedure. 1 Each 12/27/2023 Active polysaccharide iron complex 150 mg oral capsule (16 sources) Start: 05-22-2023 take 150 mg by mouth every other day Ferrex-150 150 mg, Oral, Every other day, Refills(s) 0, Prophylaxis Start Date: 05/22/23 Status: Ordered Start: 03-08-[address] [facility] every other day Ferrex 150 150 MG 1 capsule Orally qod Feb, Active predniSONE 20 mg oral tablet (20 sources) Start: 06-21-2023 take 1 tablet by mouth once daily predniSONE (Deltasone) 20 MG tablet Take 20 mg by mouth Daily 06/21/2023 Active Start: 06-21-2023 Prednisone Act saleem 20 MG PO As Directed June 21, 2023 12:00am 1 tab tid w/ food x 3 days, then bid w/ food x 3 days, then qd w/ food x 3 days Start: 12-12-2022 predniSONE 20 MG 1 tablet Orally tid w/ food x 3 days then bid w/ food x 3 days, then qd w/ food x 3 days for 9 days Nov, Not-Taking/PRN Start: 11-01-2022 take 1 tablet by [facility] every twelve hours prednisone 20 MG 1 tablet Orally BID for 5 Oct, Not-Taking/PRN ProAir HFA 108 (90 Base) MCG/ACT (20 [...] Active ProAir HFA 90 mcg/inh inhalation aerosol (11 sources) Start: 09-02-2019 take 2 puff(s) by inhalation every four hours ProAir HFA 90 mcg/inh inhalation aerosol 2 puff(s), Inhalation, q4hr Shortness of breath or wheezing, Refill(s) 0 Start Date: 09/02/19 Status: Ordered psyllium 520 mg oral capsule (4 sources) Start: 10-21-2018 Psyllium Husk (Metamucil) 0.52 gram Capsule Active 1 CAP PO Twice daily October 21, 2018 12:00am Trelegy Ellipta (10 sources) Start: 05-14-2023 Trelegy Ellipt a Inhalation, [...] a day for 30 days Feb, Active vit A/vit C/biotin/zinc/yazmin er (VLNI-JPSG-CHDB,VIT A,C-BIOTIN, ORAL) (1 source) vit A/vit C/biot in/zinc/copper (UFSB-CIDG-LKTL,VIT A,C-BIOTIN, ORAL) Take by mouth. Active Vitamin D3 (10 sources) Start: 05-14-2023 Vitamin D3 Oral, Daily, Refills(s) 0, Prophylaxis Start Date: 05/14/23 Status: Ordered Start: 05-14-2023 Vitamin D3 Ref ills(s) 0 Start Date: 05/14/23 Status: Ordered Completed/Discontinued Medications Medication Drug Class(es) Dates Sig (Normalized) Sig (Original) acetaminophen 300 mg / butalbital 50 mg / caffeine 40 mg oral capsule (7 sources) Barbiturate, Central Nervous System Stimulant, Methylxanthine End: 12-27-2023 Butalbital-Acetami nophen-Caff (FIORICET) 50-300-40 mg cap Take by mouth. 12/27/2023 Discontinued (Other) azithromycin 250 mg oral tablet (20 sources) [...] a day for 7 days Oct, Not-Taking/PRN bisacodyl 5 mg delayed release oral tablet (1 source) Stimulant Laxative Start: 12-27-2023 End: 12-27-2023 take 4 tablets by mouth once bisacodyl EC (DULCOLAX, BISACODYL,) 5 mg EC tablet Indications: Iron deficiency anemia due to chronic blood loss Take 4 tablets by mouth one time only for 1 dose. For rectal double balloon enteroscopy preparation. 4 tablet 12/27/2023 12/27/2023 Claritin-D 12 Hour 5-120 MG (14 sources) Start: 04-25-2022 take 5-120 mg by mouth twice daily as needed Claritin-D 12 Hour 5-120 MG 1 tablet Orally two times daily, as needed Apr, Not-Taking Start: 04-25-2022 take 5-120 mg by grzegorz th twice daily as needed Claritin-D 12 Hour 5-120 MG 1 tablet Orally two times daily, as needed for 90 days Apr, Active fluconazole 150 mg oral tablet (7 sources) Azole Antifungal End: 12-27-2023 take 1 tablet by mouth once fluconazole (DIFLUCAN) 150 mg tablet Take 150 mg by mouth one time only. 12/27/2023 Discontinued (Other) levothyroxine sodium 0.088 mg oral tablet (20 sources) l-Thyroxine Start: 09-04-2019 take 1 tablet by mouth once daily levothyroxine 88 mcg (0.088 mg) Tab 88 microgram = 1 tab(s), Oral, Daily, Refills(s) 0, Thyroid Start Date: 09/04/19 Status: Ordered Start: 12-08-2007 levothyroxine sodium(SYNTHROID 100 MCG TAB) Take one(1) tablet daily. 0 12/08/2007 Active levothyroxine (S ynthroid, Levoxyl) 88 MCG tablet 1 (one) time each day at the same time Active take 1 tablet by grzegorz th once daily Levothyroxine Sodium 100 MCG TAKE 1 TABLET DAILY ON AN EMPTY STOMACH. (REPLACING 88MCG) Orally Once a day for 90 days Active Levothyroxine So dium Active montelukast 10 mg oral tablet (20 sources) Leukotriene Receptor Antagonist Start: 12-26-2022 End: 05-23-2023 take 10 mg by mouth once daily Montelukast Discontinued 10 MG PO Daily May 23, 2023 1:00am May 23, 2023 5:46pm nitrofurantoin, macrocrystals 25 mg / nitrofurantoin, monohydrate 75 mg oral capsule (12 sources) Nitrofuran Antibacterial Start: 02-20-2023 Macrobid 100 mg Cap 100 mg = 1 cap(s), Oral, As Directed, take 1 tablet within 1 hour before or after intercourse to prevent infection., # 30 cap(s), Refills(s) 3, Pharmacy: [facility], 158, cm, 02/20/23 8:48:00 EST, Height/Length Dosing, 68.5, kg, 02/20/23 8:48:00 EST, Weight Dosing Start Date: 02/20/23 Status: Ordered Start: 12-01-2021 Macrobid 100 m g Cap 100 mg = 1 cap(s), Oral, As Directed, take 1 tablet within 1 hour after intercourse to prevent infection., # 30 cap(s), Refills(s) 1, Pharmacy: [facility] #[id number], 158, cm, 12/01/21 9:55:00 EDT, Height/Length Dosing, [...] Problem Classification Problem Date Documented Date Episodic/Chronic Acute and chronic tonsillitis (2 sources) Chronic [...] Translations: [Asthma, unspecified, unspecified status] Onset: 09-28-19 Cataract (20 sources) Bilateral cataracts; Translations: [Artificial lens present] Onset: 08-28-19 23 09-04-2019 Chronic Chronic obstructive pulmonary disease and bronchiectasis (1 source) Bronchitis, not specified as acute or chronic Episodic Deficiency and other anemia (8 sources) Iron deficiency anemia due to blood loss; Translations: [Iron deficiency anemia secondary to blood loss (chronic)] 12-27-2023 Chronic Deficiency and other anemia (3 sources) Iron deficiency anemia secondary to blood loss (chronic); Translations: [Iron deficiency anemia due to chronic blood loss] Onset: 12-27-19 Chronic Deficiency and other anemia (2 sources) Anemia due to chronic blood loss; Translations: [...] Onset: 05-14-19 Episodic Deficiency and other anemia (2 sources) Anemia; Translations: [Anemia, unspecified] Onset: 05-29-19 Episodic Diseases of white blood cells (3 sources) Familial eosinophilia; 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] Onset: 06-27-19 24 06-27-2023 Chronic Disorders of lipid metabolism (20 sources) Hyperlipidemia; Translations: [Pure hypercholesterolemia, unspecified] Onset: 09-25-19 18 08-31-2019 Chronic Disorders of teeth and jaw (2 sources) Periapical abscess without sinus tract; Translations: [Periapical abscess without sinus] Episodic Diverticulosis and diverticulitis (3 sources) Diverticula of intestine; Translations: [Diverticulosis of large intestine without perforation or abscess without bleeding] Onset: 05-14-19 Chronic Esophageal disorders (20 sources) Gastroesophageal reflux disease; Translations: [Esophageal reflux finding] Onset: 09-28-19 16 12-11-2019 Chronic Essential hypertension (20 sources) Elevated blood pressure; Translations: [Essential (primary) hypertension] Onset: 03-18-19 08 08-31-2019 Chronic Fracture of lower limb (14 sources) Displaced fracture of fifth metatarsal bone, right foot, subsequent encounter for fracture with routine healing; Translations: [Displaced fracture of fifth metatarsal bone, right foot, initial encounter for closed fracture] Onset: 03-13-20 Episodic Gastritis and duodenitis (3 sources) Gastritis; Translations: [Other gastritis without bleeding] Onset: 05-14-19 Episodic Genitourinary symptoms and ill-defined conditions (17 sources) Mixed incontinence; Translations: [Incontinence] Onset: 12-02-19 22 Chronic Headache; including migraine (20 sources) Tension-type headache; Translations: [Tension-type headache, unspecified, not intractable] Onset: 01-12-20 16 Resolved : 06-27-19 24 08-31-2019 Chronic Hemorrhoids (2 sources) Hemorrhoids; Translations: [Other hemorrhoids] Onset: 05-30-19 24 Episodic Inflammation; infection of eye (except that caused by tuberculosis or sexually transmitteddisease) (4 sources) Keratoconjunctivitis sicca; Translations: [Keratoconjunctivitis sicca, not specified as Sjogren's, bilateral] Onset: 01-15-20 23 01-14-2023 Chronic Intestinal obstruction without hernia (4 sources) Stricture of intestine; Translations: [Other intestinal obstruction unspecified as to partial versus complete obstruction] Onset: 08-15-19 24 Episodic Joint disorders and dislocations; trauma-related (2 sources) Disorder of right patellofemoral joint; Translations: [Patellofemoral disorders, right knee] Onset: 02-22-20 18 Chronic Miscellaneous mental health disorders (2 sources) Primary insomnia; Translations: [Primary insomnia] Chronic Nausea and vomiting (4 sources) Nausea; Translations: [Nausea] Onset: 01-12-20 16 Episodic Nonmalignant breast conditions (3 sources) Fibrocystic disease of breast; Translations: [Diffuse cystic mastopathy of unspecified breast] Onset: 06-27-19 24 06-27-2023 Chronic Nutritional deficiencies (16 sources) Vitamin D deficiency; Translations: [Vitamin D deficiency, unspecified] Chronic Osteoarthritis (20 sources) Arthritis of acromioclavicular joint; Translations: [Primary osteoarthritis, right shoulder] Onset: 02-05-20 17 04-12-2021 Chronic Osteoporosis (20 sources) Age-related osteoporosis without current pathological fracture; Translations: [Primary osteoporosis] Onset: 04-09-19 23 Chronic Other acquired deformities (3 sources) Equinus contracture of the ankle; Translations: [Contracture, right ankle] Onset: 06-27-19 24 06-27-2023 Chronic Other aftercare (1 source) 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; Translations: [COMPLETION SUPERVISOR CURRENT USE OF ASPIRIN] Onset: 04-09-19 Episodic Other aftercare (3 sources) Other jail (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 therapy; Translations: [OTH COMPLETION SUPERVISOR CURRENT DRUG THERAPY] Onset: 03-13-20 Episodic Other aftercare (1 source) Long-term current use of drug therapy; Translations: [Other jail (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 therapy] Episodic Other bone disease and musculoskeletal deformities [...] bursitis, left knee] Episodic Other diseases of kidney and ureters (1 source) Vesicoureteric reflux; Translations: [Vesicoureteral-reflux, unspecified] Onset: 05-14-19 Episodic Other disorders of stomach and duodenum (15 sources) Stricture of duodenum; Translations: [Obstruction of duodenum] Onset: 06-27-19 24 09-04-2019 Chronic Other gastrointestinal disorders (2 sources) Irritable bowel syndrome characterized by constipation; Translations: [Irritable bowel syndrome with constipation] Chronic Other gastrointestinal disorders (1 source) Oropharyngeal dysphagia; [...] of falling] Episodic Other lower respiratory disease (3 sources) Post-inflammatory pulmonary fibrosis; Translations: [Pulmonary fibrosis, unspecified] Onset: 06-27-19 24 06-27-2023 Chronic Other lower respiratory disease (1 source) Personal [...] conditions (not mental disorders or infectious disease) (10 sources) Encounter for screening mammogram for malignant neoplasm of breast; Translations: [Abnormal findings on diagnostic imaging of skull and head] Onset: 01-18-20 16 Episodic Other skin disorders (3 sources) Lichen sclerosus et atrophicus; Translations: [Circumscribed scleroderma] Onset: 07-25-19 24 07-25-2023 Chronic Other upper respiratory disease (20 sources) Allergic rhinitis due to pollen; Translations: [Allergic rhinitis due to pollen] Onset: 06-27-19 24 08-31-2019 Chronic Other upper respiratory disease (2 [...] Translations: [Dysphonia] Episodic Other upper respiratory infections (10 sources) Chronic maxillary sinusitis; Translations: [Chronic maxillary sinusitis] Onset: 06-27-19 24 06-27-2023 Chronic Other upper respiratory infections (8 sources) Acute maxillary sinusitis; Translations: [Acute recurrent maxillary sinusitis] Onset: 12-18-19 17 Episodic Otitis media and related conditions (4 sources) Eustachian tube disorder; Translations: [Other specified disorders of Eustachian tube, unspecified ear] Episodic Regional enteritis and ulcerative colitis (3 sources) Ulcerative colitis; Translations: [Ulcerative colitis, unspecified, without complications] Onset: 03-18-19 08 06-27-2023 Chronic Residual codes; unclassified (1 source) Acquired absence [...] sources) Autoimmune hypothyroidism; 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] Onset: 01-30-20 22 08-31-2019 Chronic Unclassified (12 sources) Asymptomatic microscopic hematuria 12-01-2021 Unclassified (12 sources) Finding of sensation of bladder 04-13-2021 [...] joint, ankle and foot] Onset: 11-19-19 16 Unclassified (3 sources) Stricture of small intestine 08-15-2023 Unclassified (2 sources) New Patient Visit; Translations: [New Patient Visit] Onset: 09-14-19 24 Past or Other Problems Problem Classification Problem Date Documented Date Episodic/Chronic Abdominal pain (19 sources) Epigastric pain; Translations: [Epigastric pain] Onset: 4 12-11-2019 Episodic Bacterial infection; unspecified site (1 source) Bacterial infectious disease; Translations: [Bacterial infection, unspecified, in conditions classified elsewhere and of unspecified site] Onset: 6 Episodic E Codes: Natural/environment (1 source) Overexertion from prolonged static or awkward postures, initial encounter; Translations: [OVEREXERT PROLNG STAT/AWK PST INIT] Onset: 2 Episodic Esophageal disorders (6 sources) Esophageal disorders; Translations: [Gastro-esophageal reflux disease with esophagitis, without bleeding] Gastroduodenal ulcer (except hemorrhage) (20 sources) H/O: gastric ulcer; Translations: [H/O: peptic ulcer] Onset: 4 Resolved: 4 08-31-2019 Episodic Genitourinary symptoms and ill-defined conditions (20 sources) Sensation as if bladder still full; Translations: [Feeling of incomplete bladder emptying] Onset: 2 Episodic Headache; including migraine (2 sources) Headache; Translations: [Headache] Onset: 6 Episodic Inflammation; infection of eye (except that caused by tuberculosis or sexually transmitteddisease) (4 sources) 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; Translations: [Unspecified blepharitis right eye, upper and lower eyelids] Onset: 3 01-14-2023 Episodic Menopausal disorders (1 source) Hormone replacement therapy; Translations: [HORMONE REPLACEMENT THERAPY] Onset: 2 Episodic Nonspecific chest pain (2 sources) Chest pain; Translations: [Other chest pain] Onset: 7 Episodic Other and unspecified benign neoplasm (15 sources) History of polyp of colon; Translations: [History of colonic polyps] Onset: 4 09-04-2019 Episodic Other bone disease and musculoskeletal deformities (15 sources) Osteopenia; Translations: [Other specified disorders of bone density and structure, unspecified site] Onset: 4 08-31-2019 Episodic Other bone disease and musculoskeletal deformities (1 source) Bone density finding; Translations: [Other specified disorders of bone density and structure, unspecified site] Onset: 7 Episodic Other bone disease and musculoskeletal deformities (1 source) Other specified disorders of bone density and structure, unspecified site; Translations: [Oth disrd of bone density and structure, unspecified site] Onset: 7 Episodic Other connective tissue disease (3 sources) Pain in right foot; Translations: [PAIN IN RIGHT FOOT] Onset: 2 Episodic Other connective tissue disease (1 source) Disorder of rotator cuff; Translations: [Other specified disorders of rotator cuff syndrome of shoulder and allied disorders] Onset: 9 Episodic Other connective tissue disease (1 source) Plantar fascial fibromatosis; Translations: [Plantar fascial fibromatosis] Onset: 6 Episodic Other connective tissue disease (2 sources) Achilles bursitis; Translations: [Achilles bursitis or tendinitis] Onset: 6 Episodic Other connective tissue disease (1 source) Plantar fascial fibromatosis; Translations: [Plantar fascial fibromatosis] Onset: 6 Episodic Other connective tissue disease (10 sources) Right achilles tendonitis; Translations: [Achilles tendinitis, right leg] Onset: 7 04-11-2016 Episodic Other diseases of bladder and urethra (17 sources) Urethral caruncle; Translations: [Urethral caruncle] Onset: 2 Episodic Other gastrointestinal disorders (15 sources) Abdominal bloating; Translations: [Abdominal distension (gaseous)] Onset: 4 12-11-2019 Episodic Other gastrointestinal disorders (3 sources) Dysphagia; Translations: [Dysphagia, pharyngoesophageal phase] Onset: 4 06-27-2023 Episodic Other injuries and conditions due to external causes (3 sources) Aspiration into respiratory tract; Translations: [Unspecified foreign body in respiratory tract, part unspecified causing other injury, initial encounter] Onset: 4 07-25-2023 Episodic Other lower respiratory disease (7 sources) Chronic cough; Translations: [Chronic cough] Onset: 4 Episodic Other lower respiratory disease (3 sources) Lung field abnormal; Translations: [Other nonspecific abnormal finding of lung field] Onset: 4 Resolved: 4 06-27-2023 Episodic Other nervous system disorders (2 sources) Ataxic gait; Translations: [Ataxic gait] Onset: 6 Episodic Other non-traumatic joint disorders (1 source) Arthralgia of the upper arm; Translations: [Pain in unspecified elbow] Onset: 4 Episodic Other non-traumatic joint disorders (1 source) Shoulder joint pain; Translations: [Pain in right shoulder] Onset: 7 Episodic Other non-traumatic joint disorders (1 source) Arthralgia of the ankle and/or foot; Translations: [Pain in joint, ankle and foot] Onset: 6 Episodic Other non-traumatic joint disorders (1 source) Pain in unspecified elbow; Translations: [Pain in unspecified elbow] Onset: 4 Episodic Other non-traumatic joint disorders (1 source) Pain in right shoulder; Translations: [Pain in right shoulder] Onset: 7 Episodic Other nutritional; endocrine; and metabolic disorders (6 sources) Body mass index 25-29 - overweight; Translations: [Body mass index 28.0-28.9, adult] Onset: 6 Episodic Other skin disorders (2 sources) Disorder of skin and/or subcutaneous tissue; Translations: [Disorder of the skin and subcutaneous tissue, unspecified] Onset: 5 Episodic Other upper respiratory disease (3 sources) Chronic hoarseness; Translations: [Dysphonia] Onset: 4 06-27-2023 Episodic Other upper respiratory disease (3 sources) Stridor; Translations: [Stridor] Onset: 4 06-27-2023 Episodic Residual codes; unclassified (1 source) Family history of malignant neoplasm of breast; Translations: [FAMILY HX MALIG NEOPLASM OF BREAST] Onset: 2 Episodic Residual codes; unclassified (1 source) Family history of malignant neoplasm of other organs or systems; Translations: [FAM HX MALIG NEOPLASM OTH ORGN/SYS] Onset: 2 Episodic Urinary tract infections (20 sources) Urinary tract infectious disease; Translations: [Urinary tract infection, site not specified] Onset: 2 Resolved: 4 Episodic Results Test Name Value Interpretation Reference Range Facility C Urineon 12-30-2023 Bacteria identified Cx Nom (U) Microbiology PROCEDURE: Urine Culture [R1] SOURCE: U CleanCatch BODY SITE: COLLECTED DATE/TIME: 12/27/2023 10:45 EDT RECEIVED DATE/TIME: 12/27/2023 18:04 EDT START DATE/TIME: 12/27/2023 18:04 EDT FREE TEXT SOURCE: Dewayne VILLEGAS, Asuncion Buchanan MD, Asuncion London FINAL REPORTS Final Report [] Verified Date/Time: 12/30/2023 11:59 EDT 400 cfu/ml Mixed skin contaminants Performing Locations R1: This test was performed at: [facility], [address] [place] [address], [address] [place] [address], [facility] Comment on above: Performed By: #### [id number] #### [facility] [address] [place] [address] CNOVon 12-27-2023 CNOV Office Visit (GGENMN ) ----- MUNIRA CHESTER ([id number]) 1950 F Date Time Provider Department 12/27/23 4:30 PM KASEY FALLON GGENMN During your visit today, we recorded the following information about you: Temperature Pulse Blood pressure Weight 98.3 degrees 68/minute 136/72 75.3 kg Height 1.575 m Kasey Fallon MD 12/27/2023 9:01 PM Signed SMALL BOWEL DISEASES AND NUTRITION NEW ENCOUNTER Date of direct communication: 12/27/23 Assessment IMPRESSION: Munira Chester is a 73 year old female with longstanding NSAID dependence complicated by upper GI ulcers and iron deficiency anemia. She has ileal strictures which are most likely diaphragm strictures and small bowel series shows delayed small bowel transit through the distal ileum. Malignancy is highly unlikely given chronicity and lack of significant findings on small bowel series. She has not had symptoms of overt bleeding or obstruction. DIAGNOSTIC ISSUES AND PLAN: #) Iron deficiency anemia #) Small bowel strictures -Almost surely diaphragm strictures from chronic, longstanding NSAID use and bland appearance on small bowel series this week -Avoid NSAIDs -Continue iron replacement -Will plan for elective rectal double balloon enteroscopy to exclude other pathology. Discussed that the procedure would be more urgent should she develop obstruction symptoms, overt bleeding, worsening anemia in spite of iron replacement. #) Migraine headaches #) NSAID dependence -Acetaminophen, caffeine are partly effective -She has not had a durable therapy after seeing multiple headache specialists -NSAIDs are optimal but we discussed trying to cut down FOLLOW-UP: at the time of rectal double balloon enteroscopy Kasey Fallon MD 12/27/2023 [facility] , REFERRING PROVIDER: Jones Ace [id number] [facility] [id number] REASON FOR REFERRAL: Small bowel stricture HISTORY: -Remote hx of bleeding upper GI ulcer that was attributed to aspirin (takes for chronic migraines) -Started out with a chronic cough and then had further evaluations (cough turned out to be post nasal drip and asthma) -Hx of iron def anemia, GERD, diverticulosis -EGD AND colonoscopy non-diagnsotic for GI blood loss -Capsule study with small bowel diverticula and stricture about 5 hours into the study --> capsule was retained in this area but eventually passed -Generally speaking, feels well from a GI perspective -Takes Protonix which works for GERD, minimal breakthru -Avoids spicy food, but otherwise no restrictions -BM's 1-2 per week. Stools tend to be formed. No diarrhea. -No abdo pain. Some bloating with large meals or if she eats a lot of cheese. -Small bowel series with very slow transit through the distal small bowel -Daily aspirin/tylenol/caffeine for migraines. -Caffeine restriction and would get withdrawal pain. Had norgesic forte but it was taken off the market. -Recent labs with mild iron def anemia --> started oral iron supplements -Had blood transfusion with ulcer bleed, but none since. Required 2x iron infusions. Antiplatelet/NSAID: aspirin Anticoagulation: none Prior abdominal surgery: gallbladder, C section, tubal ligation Weight history: Last Wt No data found for Wt Current Outpatient Medications Medication Sig fluticasone-vilanterol (BREO ELLIPTA) 100-25 mcg/dose inhaler Inhale 1 Inhalation as instructed once daily. Butalbital-Acetaminophen- Caff (FIORICET) 50-300-40 mg cap Take by mouth. EPINEPHrine (EPIPEN) 0.3 mg/0.3 mL auto-injector Inject 0.3 mg intramuscularly as needed. fluticasone (FLONASE) 50 mcg/actuation nasal spray Use 1 Donovan in each nostril once daily. atorvastatin (LIPITOR) 10 mg tablet Take 10 mg by mouth once daily. benazepril (LOTENSIN) 10 mg tablet Take 10 mg by mouth once daily. albuterol HFA (PROAIR HFA) 90 mcg/actuation inhaler Inhale 2 Puffs as instructed. montelukast (SINGULAIR) 10 mg tablet Take 10 mg by mouth daily at bedtime. cycloSPORINE (RESTASIS) 0.05 % ophthalmic emulsion 1 Drop twice daily. fluconazole (DIFLUCAN) 150 mg tablet Take 150 mg by mouth one time only. alendronate (FOSAMAX) 70 mg tablet Take 70 mg by mouth once each week. metroNIDAZOLE (METROGEL) 0.75 % Vaginal Gel Use 1 Applicatorful vaginally daily at bedtime. Estradiol (VAGIFEM) 10 mcg tab vaginal tablet Use 10 mcg vaginally once daily. orphenadrine ER (NORFLEX) 100 mg tablet Two tablets daily as needed levothyroxine sodium(SYNTHROID 100 MCG TAB) Take one(1) tablet daily. No current facility-administered medications for this visit. ALLERGIES Allergen Reactions Contrast Dye Sulfa (Sulfonamide * PAST MEDICAL HISTORY Diagnosis Date CERVICAL DISC DEGEN ESOPHAGEAL REFLUX HYPERTENSION (more content not included)... Normal [facility] ----- MUNIRA CHESTER ([id number]) 1950 F Date Time Provider Department 12/25/23 KASEY FALLON GASTA5 During your visit today, we recorded the following information about you: Hollis Mckeon RN 12/25/2023 2:58 PM Signed Pt called and left VM, said had small bowel xray done, saw results and now questioning if still needs appt with Dr. Fallon, scheduled for 12/26, asking for return call to clarify if still needs to come or can cx. Call cell phone at [phone]. MARIA D Hilliard Ann, RN 12/26/2023 9:10 AM Signed Called pt back and let her know Dr. Fallon did the test she had done to provide more information to discuss a plan for pt, pt will come to appt. Hollis Mckeon RN Allergies As of Date: 12/25/2023 Noted Allergy Reaction CONTRAST DYE 12/08/2007 SULFA (SULFONAMIDE ANTIBIOTICS) 12/08/2007 Date Reviewed: 04/11/2016 Reviewed by: Diana Spence - Fully Assessed Reason for Visit: Patient Question [1477] Prescriptions as of 12/26/2023 - fluticasone-vilanterol (BREO ELLIPTA) 100-25 mcg/dose inhaler Inhale 1 Inhalation as instructed once daily. - Butalbital-Acetaminophen- Caff (FIORICET) 50-300-40 mg cap Take by mouth. - EPINEPHrine (EPIPEN) 0.3 mg/0.3 mL auto-injector Inject 0.3 mg intramuscularly as needed. - fluticasone (FLONASE) 50 mcg/actuation nasal spray Use 1 Donovan in each nostril once daily. - atorvastatin (LIPITOR) 10 mg tablet Take 10 mg by mouth once daily. - benazepril (LOTENSIN) 10 mg tablet Take 10 mg by mouth once daily. - albuterol HFA (PROAIR HFA) 90 mcg/actuation inhaler Inhale 2 Puffs as instructed. - montelukast (SINGULAIR) 10 mg tablet Take 10 mg by mouth daily at bedtime. - cycloSPORINE (RESTASIS) 0.05 % ophthalmic emulsion 1 Drop twice daily. - fluconazole (DIFLUCAN) 150 mg tablet Take 150 mg by mouth one time only. - alendronate (FOSAMAX) 70 mg tablet Take 70 mg by mouth once each week. - metroNIDAZOLE (METROGEL) 0.75 % Vaginal Gel Use 1 Applicatorful vaginally daily at bedtime. - Estradiol (VAGIFEM) 10 mcg tab vaginal tablet Use 10 mcg vaginally once daily. - orphenadrine ER (NORFLEX) 100 mg tablet Two tablets daily as needed - levothyroxine sodium(SYNTHROID 100 MCG TAB) Take one(1) tablet daily. Problem List As Of Date 12/25/2023 Noted Resolved Episodic tension-type headache, not intractable*02/06/2016 Achilles tendinitis of right lower extremity [M*04/11/2016 Encounter Status:Closed by HOLLIS MCKEON on 12/25/23 [facility] RF Small bowel Views W contr ast Rhys 12-24-2023 IMPRESSION: Slow tra nsit. No dilated small bowel. No visualized stricture. Broadcasting Equipment Mechanic: ANGELA Transcribe Date/Time: Dec 24 2023 3:37P Dictated by : HAYDEN REEVES MD This examination was interpreted and the report reviewed and electronically signed by: HAYDEN REEVES MD on Dec 24 2023 3:40PM [facility] DIVISION OF RADIOLOGY * * *Final Report* * * DATE OF EXAM: Dec 24 2023 2:18PM [id number] 5383 - XR SMALL BOWEL SERIES / PROCEDURE REASON: Other partial intestinal obstruction (HCC) * * * * Physician Interpretation * * * * SMALL BOWEL SERIES CLINICAL INFORMATION: Small bowel stricture. TECHNIQUE: Small bowel series with overhead and fluoroscopic spot films. Contrast: ORAL: 855 ml of EZPAQUE RESULT: Advisory Services Associate radiograph shows no dilated bowel loops. Right upper quadrant surgical clips. Contrast was ingested orally. By 60 minutes, contrast fills normal caliber and fold pattern jejunum and proximal and mid ileum. Subsequently there was very slow transit. Study was terminated at 240 minutes with small amount of contrast in colon. No small bowel dilation or focal area of narrowing identified. DIVISION OF RADIOLOGY Provider, [facility] - 12/24/2023 * * *Final Report* * * DATE OF EXAM: Dec 24 2023 2:18PM HGX 5383 - XR SMALL BOWEL SERIES / PROCEDURE REASON: Other partial intestinal obstruction (HCC) * * * * Physician Interpretation * * * * SMALL BOWEL SERIES CLINICAL INFORMATION: Small bowel stricture. TECHNIQUE: Small bowel series with overhead and fluoroscopic spot films. Contrast: ORAL: 855 ml of EZPAQUE RESULT: Advisory Services Associate radiograph shows no dilated bowel loops. Right upper quadrant surgical clips. Contrast was ingested orally. By 60 minutes, contrast fills normal caliber and fold pattern jejunum and proximal and mid ileum. Subsequently there was very slow transit. Study was terminated at 240 minutes with small amount of contrast in colon. No small bowel dilation or focal area of narrowing identified. IMPRESSION IMPRESSION: Slow transit. No dilated small bowel. No visualized stricture. Broadcasting Equipment Mechanic: [facility] CENTEREdgar Transcribe Date/Time: Dec 24 2023 3:37P Dictated by : HAYDEN REEVES MD This examination was interpreted and the report reviewed and electronically signed by: HAYDEN REEVES MD on Dec 24 2023 3:40PM EST [facility] Radiology Study observation (narrative) Jose ramos [facility] RF Small bowel Views W contr ast POOrdered By: [facility] Provider on 12-24-2023 [facility] XR SMALL BOWEL SERIESon XR SMALL BOWEL SERIES * * *Final Report* * * DATE OF EXAM: Dec 24 2023 2:18PM HGX [id number] - XR SMALL BOWEL SERIES / PROCEDURE REASON: Other partial intestinal obstruction (HCC) * * * * Physician Interpretation * * * * SMALL BOWEL SERIES CLINICAL INFORMATION: Small bowel stricture. TECHNIQUE: Small bowel series with overhead and fluoroscopic spot films. Contrast: ORAL: 855 ml of EZPAQUE RESULT: Advisory Services Associate radiograph shows no dilated bowel loops. Right upper quadrant surgical clips. Contrast was ingested orally. By 60 minutes, contrast fills normal caliber and fold pattern jejunum and proximal and mid ileum. Subsequently there was very slow transit. Study was terminated at 240 minutes with small amount of contrast in colon. No small bowel dilation or focal area of narrowing identified. IMPRESSION: Slow transit. No dilated small bowel. No visualized stricture. Broadcasting Equipment Mechanic: PSCB Transcribe Date/Time: Dec 24 2023 3:37P Dictated by : HAYDEN REEVES MD This examination was interpreted and the report reviewed and electronically signed by: HAYDEN REEVES MD on Dec 24 2023 3:40PM EST [id number] [facility] MUNIRA CHESTER ([id number]) 1950 F Date Time Provider Department 12/04/23 KASEY FALLON GASTA5 During your visit today, we recorded the following information about you: Hollis Mckeon, RN 12/04/2023 11:12 AM Signed Pt left and would like to reschedule GI test to earlier in week due to would like to come with her and drive and then maybe MD would also have test results before appt. Hollis Mckeon, Hollis Honeycutt RN 12/05/2023 10:34 AM Signed Test moved to 12/23 for pt, called pt and she is fine with new date. Hollis Mckeon RN Allergies As of Date: 12/04/2023 Noted Allergy Reaction CONTRAST DYE 12/08/2007 SULFA (SULFONAMIDE ANTIBIOTICS) 12/08/2007 Date Reviewed: 04/11/2016 Reviewed by: Diana Spence - Fully Assessed Reason for Visit: help rescheduling GI test [Other] Prescriptions as of 12/05/2023 - fluticasone-vilanterol (BREO ELLIPTA) 100-25 mcg/dose inhaler Inhale 1 Inhalation as instructed once daily. - Butalbital-Acetaminophen- Caff (FIORICET) 50-300-40 mg cap Take by mouth. - EPINEPHrine (EPIPEN) 0.3 mg/0.3 mL auto-injector Inject 0.3 mg intramuscularly as needed. - fluticasone (FLONASE) 50 mcg/actuation nasal spray Use 1 Donovan in each nostril once daily. - atorvastatin (LIPITOR) 10 mg tablet Take 10 mg by mouth once daily. - benazepril (LOTENSIN) 10 mg tablet Take 10 mg by mouth once daily. - albuterol HFA (PROAIR HFA) 90 mcg/actuation inhaler Inhale 2 Puffs as instructed. - montelukast (SINGULAIR) 10 mg tablet Take 10 mg by mouth daily at bedtime. - cycloSPORINE (RESTASIS) 0.05 % ophthalmic emulsion 1 Drop twice daily. - fluconazole (DIFLUCAN) 150 mg tablet Take 150 mg by mouth one time only. - alendronate (FOSAMAX) 70 mg tablet Take 70 mg by mouth once each week. - metroNIDAZOLE (METROGEL) 0.75 % Vaginal Gel Use 1 Applicatorful vaginally daily at bedtime. - Estradiol (VAGIFEM) 10 mcg tab vaginal tablet Use 10 mcg vaginally once daily. - orphenadrine ER (NORFLEX) 100 mg tablet Two tablets daily as needed - levothyroxine sodium(SYNTHROID 100 MCG TAB) Take one(1) tablet daily. Problem List As Of Date 12/04/2023 Noted Resolved Episodic tension-type headache, not intractable*02/06/2016 Achilles tendinitis of right lower extremity [M*04/11/2016 Encounter Status:Closed by HOLLIS MCKEON on 12/04/23 Normal [facility] 10-31-2023 [facility] Telephone (GASTA5) ----- MUNIRA CHESTER ([id number]) 1950 F Date Time Provider Department 10/31/23 KASEY FALLON GASTA5 During your visit today, we recorded the following information about you: Rehana Hoang 10/31/2023 9:31 AM Signed Patient called to see if you have received a fax from a Dr. Nettles's office for a pill cam? Chloe Lagunas 10/31/2023 3:36 PM Signed Yes all records have been received and scanned into patients Chart. Chloe Allergies As of Date: 10/31/2023 Noted Allergy Reaction CONTRAST DYE 12/08/2007 SULFA (SULFONAMIDE ANTIBIOTICS) 12/08/2007 Date Reviewed: 04/11/2016 Reviewed by: Diana Spence - Fully Assessed Reason for Visit: Patient Question [4817] Prescriptions as of 10/31/2023 - fluticasone-vilanterol (BREO ELLIPTA) 100-25 mcg/dose inhaler Inhale 1 Inhalation as instructed once daily. - Butalbital-Acetaminophen- Caff (FIORICET) 50-300-40 mg cap Take by mouth. - EPINEPHrine (EPIPEN) 0.3 mg/0.3 mL auto-injector Inject 0.3 mg intramuscularly as needed. - fluticasone (FLONASE) 50 mcg/actuation nasal spray Use 1 Donovan in each nostril once daily. - atorvastatin (LIPITOR) 10 mg tablet Take 10 mg by mouth once daily. - benazepril (LOTENSIN) 10 mg tablet Take 10 mg by mouth once daily. - albuterol HFA (PROAIR HFA) 90 mcg/actuation inhaler Inhale 2 Puffs as instructed. - montelukast (SINGULAIR) 10 mg tablet Take 10 mg by mouth daily at bedtime. - cycloSPORINE (RESTASIS) 0.05 % ophthalmic emulsion 1 Drop twice daily. - fluconazole (DIFLUCAN) 150 mg tablet Take 150 mg by mouth one time only. - alendronate (FOSAMAX) 70 mg tablet Take 70 mg by mouth once each week. - metroNIDAZOLE (METROGEL) 0.75 % Vaginal Gel Use 1 Applicatorful vaginally daily at bedtime. - Estradiol (VAGIFEM) 10 mcg tab vaginal tablet Use 10 mcg vaginally once daily. - orphenadrine ER (NORFLEX) 100 mg tablet Two tablets daily as needed - levothyroxine sodium(SYNTHROID 100 MCG TAB) Take one(1) tablet daily. Problem List As Of Date 10/31/2023 Noted Resolved Episodic tension-type headache, not intractable*02/06/2016 Achilles tendinitis of right lower extremity [M*04/11/2016 Encounter Status:Closed by REHANA HOANG on 10/31/23 [facility] 10-16-2023 [facility] Telephone (GASTA5) ----- MUNIRA CHESTER ([id number]) 1950 F Date Time Provider Department 10/16/23 [facility] PROVIDER GASTA5 During your visit today, we recorded the following information about you: Hollis Mckeon RN 10/16/2023 1:52 PM Signed Faxed referral received on 10/15/23 for pt sent from Dr. Ace from [facility] to attention Dr. Fallon, for pt for GI for consideration for double balloon enteroscopy. What records were received were scanned to chart. MARIA D Hilliard Ann, RN 10/31/2023 4:23 PM Signed [facility] sent report of capsule study for review. Pt is scheduled for appt with Dr. Fallon in December. Have not yet been able to get capsule study on CD or disk. MARIA D Hilliard Ann, RN 11/08/2023 8:[address] Fallon would also like: 1) Could you please get the pill cam photos at minimum in color. The fax only has black boxes. No idea what I'm supposed to be looking at. 2) ordered a CT enterography that she should get done some time before her appointment with me. She has a contrast allergy, but type isn't specified. Could you please call her and clarify what the allergy is and then pend orders for contrast allergy medications if it's anything other than anaphyaxis? If she has anaphylaxis to contrast, can D/C CTE order and order small bowel series instead. MARIA D Hilliard Ann, RN 11/21/2023 11:00 AM Signed Called pt and left VM asking for return call. MARIA D Hilliard Ann, RN 11/22/2023 10:10 AM Signed Talked to pt and pt said her contrast allergy was to IVP dye, developed a rash and also made her asthma worse. Reviewed with pt what was ordered and if ok to have test will let her know. MARIA D Hilliard Ann, RN 11/22/2023 10:13 AM Signed Addended by: HOLLIS MCKEON on: 11/22/2023 10:13 AM Modules accepted: Orders Hollis Mckeon RN 11/25/2023 11:[address] Fallon reviewed and said pt should not have the CT and just get small bowel series. MARIA D Hilliard Ann, RN 11/25/2023 11:29 AM Signed Got pt scheduled for test same day as office visit, will mail out prep instructions. Called pt, left VM asking for return call. MARIA D Hilliard Ann, RN 11/26/2023 9:47 AM Signed Called pt and reviewed details of test and date and time and also put in mail the prep for the test. Hollis Mckeon RN Allergies As of Date: 10/16/2023 Noted Allergy Reaction CONTRAST DYE 12/08/2007 SULFA (SULFONAMIDE ANTIBIOTICS) 12/08/2007 Date Reviewed: 04/11/2016 Reviewed by: Diana Spence - Fully Assessed Reason for Visit: Consult [502] Prescriptions as of 11/26/2023 - fluticasone-vilanterol (BREO ELLIPTA) 100-25 mcg/dose inhaler Inhale 1 Inhalation as instructed once daily. - Butalbital-Acetaminophen- Caff (FIORICET) 50-300-40 mg cap Take by mouth. - EPINEPHrine (EPIPEN) 0.3 mg/0.3 mL auto-injector Inject 0.3 mg intramuscularly as needed. - fluticasone (FLONASE) 50 mcg/actuation nasal spray Use 1 Donovan in each nostril once daily. - atorvastatin (LIPITOR) 10 mg tablet Take 10 mg by mouth once daily. - benazepril (LOTENSIN) 10 mg tablet Take 10 mg by mouth once daily. - albuterol HFA (PROAIR HFA) 90 mcg/actuation inhaler Inhale 2 Puffs as instructed. - montelukast (SINGULAIR) 10 mg tablet Take 10 mg by mouth daily at bedtime. - cycloSPORINE (RESTASIS) 0.05 % ophthalmic emulsion 1 Drop twice daily. - fluconazole (DIFLUCAN) 150 mg tablet Take 150 mg by mouth one time only. - alendronate (FOSAMAX) 70 mg tablet Take 70 mg by mouth once each week. - metroNIDAZOLE (METROGEL) 0.75 % Vaginal Gel Use 1 Applicatorful vaginally daily at bedtime. - Estradiol (VAGIFEM) 10 mcg tab vaginal tablet Use 10 mcg vaginally once daily. - orphenadrine ER (NORFLEX) 100 mg tablet Two tablets daily as needed - levothyroxine sodium(SYNTHROID 100 MCG TAB) Take one(1) tablet daily. Problem List As Of Date 10/16/2023 Noted Resolved Episodic tension-type headache, not intractable*02/06/2016 Achilles tendinitis of right lower extremity [M*04/11/2016 Encounter Status:Closed by HOLLIS MCKEON on 10/16/23 [facility] Physician Referralon 09-04-2 024 Physician Referral [id number]#[id number] Normal [facility] Telephoneon 09-05-2023 Telephone [id number] Munira Chester 1950 F Date Provider Department Center 09/05/2023 [facility] No family history on file Normal [facility] Telephoneon 08-28-2023 Telephone [id number] Munira Chester 1950 F Date Provider Department [place] 08/28/2023 [facility] No family history on file Normal [facility] Physician Referralon 024 Physician Referral [id number]#1.00TIFF Normal [facility] Ambulatory Visit Summaryon 0 08-15-2023 Ambulatory Visit Summary MUNIRA CHESTER :1950 Visit Date:08/15/2023 Ambulatory Visit Instructions Your Diagnosis Anemia Bile reflux gastritis Diverticulosis Iron deficiency anemia due to chronic blood loss Internal hemorrhoids Small bowel stricture Your Care Team Attending Physician - Tho VILLEGAS, Del Duckworth Primary Care Physician - ANDREA GOLDEN DO This Is Your Medications List Contact prescribing physician if questions or concerns albuterol (ProAir HFA 90 mcg/inh inhalation aerosol) alendronate (Fosamax 70 mg Tab) amlodipine (amLODIPine 5 mg Tab) atorvastatin (atorvastatin 10 mg Tab) cetirizine (Zyrtec) cholecalciferol (Vitamin D3) epinephrine (EpiPen 2-Giovani) estradiol topical (estradiol 0.1 mg/g Vag Crm) famotidine (famotidine 20 mg Tab) fluticasone nasal (fluticasone 0.05 mg/inh Nasal Donovan) fluticasone/umeclidinium/ vilanterol (Trelegy Ellipta) iron polysaccharide (Ferrex-150) levothyroxine (levothyroxine 88 mcg (0.088 mg) Tab) nitrofurantoin (Macrobid 100 mg Cap) pantoprazole (Pantoprazole [address] Tab) Procedures Performed Colonoscopy (05/22/2023), Esophagogastroduodenoscop y (05/22/2023), Colonoscopy (09/07/2019), EGD - Esophagogastroduodenoscop y (09/07/2019), Colonoscopy (01/16/2015), EGD - Esophagogastroduodenoscop y (01/16/2015), EGD - Esophagogastroduodenoscop y (08/17/2011), EGD - Esophagogastroduodenoscop y (05/17/2011), Laparoscopic cholecystectomy (06/16/2010), Colonoscopy (01/16/2010), Cataracts, section, Foot, Rotator cuff repair, Tubal ligation. Discharge Vitals Heart Rate (Peripheral) 80 Respiratory Rate 16 Blood Pressure 126/75 Height 158 cm Height 62 in Weight 72 kg Weight 158.4 lb BMI 28.84 What to do next Scheduled Follow-Up Appointments Saturday 8:00 AM EST With: Dewayne VILLEGAS, Asuncion [place] Where: [facility] Gastroenterology Office/Clin ic Noteon 08-15-2023 Gastroenterology Office/Clinic Note Chief Complaint follow up to capsule HPI Staff This is a 73 year old female who presents today for a follow up for capsule. Last visit w/ Dr Nettles Assessment/Plan 1. Anemia (D64.9: Anemia, unspecified) 2. 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 GERD (gastroesophageal reflux disease) (K21.9: Gastro-esophageal reflux disease without esophagitis) 4. H/O gastric ulcer (Z87.19: Personal history of other diseases of the digestive system) 5. Diverticulosis (K57.90: Diverticulosis of intestine, part unspecified, without perforation or abscess without bleeding) 6. Iron deficiency anemia due to chronic [...] creams and refer to surgery if needed Capsule 07/17/23 -First Gastric image: :00:32 -First duodenal image: 1:33:34 -First cecum image: not reached -Gastric transit time: 98 min -Small bowel prep quality: -Was the capsule in the body still at the end of the procedure? No Findings: Noted 2 small diverticuli in the proximal -mid ileum Noted benign stricture in mid-proximal ileum that capsule could not pass Impression and Recommendation: Noted 2 small diverticuli in the proximal -mid ileum Noted benign stricture in mid-proximal ileum that capsule could not pass KUB unless capsule is seen in stool CTe to better assess the small bowel, based on that, can consider anterograde or retrograde double balloon enteroscopy if needed History of Present Illness I have reviewed HPI staff note, most recent labs and imaging, more than 30 minutes spent reviewing the chart, during encounter, placing orders and counseling the patient. Pt underwent capsule endoscope and the capsule was stuck in small bowel stricture she passed the capsule a week later Still anemic concerned about asthma attack since she had allergic reaction to dye Review of Systems PHQ Score Initial Depression Screen Score: 0 SCORE All systems reviewed, negative except as mentioned above Physical Exam Vitals & Measurements HR: 80(Peripheral) RR: 16 BP: 126/75 HT: 62 in HT: 158 cm WT: 72 kg WT: 158.4 lb BMI: 28.84 General: alert, no acute distress HEENT: atraumatic normocephalic Cardiovascular: regular rate and rhythm, normal peripheral perfusion Respiratory: Lungs CTA, respirations non labored Extremities: no deformity, no trauma Abdomen: Benign, soft, nontender nondistended Assessment/Plan 1. Anemia (D64.9: Anemia, unspecified) 2. 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 Diverticulosis (K57.90: Diverticulosis of intestine, part unspecified, without perforation or abscess without bleeding) 4. Iron deficiency anemia due to chronic blood loss (D50.0: Iron deficiency anemia secondary to blood loss (chronic)) 5. Internal hemorrhoids (K64.8: Other hemorrhoids) 6. Small bowel stricture (K56.699: Other intestinal obstruction unspecified as to partial versus complete obstruction) Orders: metoclopramide, 10 mg = 1 tab(s), Oral, Once, # 1 tab(s), Refills(s) 0, called to pharmacy (Rx) Continue iron supplementations Patient would like to think about options to better treat small bowel stricture. Options will be to obtain CT enterography but she is hesitant given history of allergy to dye. Advised the patient that she could receive premedication before the test. If she declines this option, will refer to surgery or advanced endoscopy for double-balloon enteroscopy She would like to get her asthma under good control before making a decision Follow-up No qualifying data available Problem List/Past [...] Personal history of colonic polyps Recurrent UTI Small bowel stricture Urethral caruncle Urinary tract infection Historical Reflux of urine Procedure/Surgical History Colonoscopy (05/22/2023), Esophagogastroduodenoscop y (05/22/2023), Colonoscopy (09/07/2019), EGD - Esophagogastroduodenoscop y (09/07/2019), Colonoscopy (01/16/2015), EGD - Esophagogastroduodenoscop y (01/16/2015), (more content not included)... Normal [facility] Comment on above: Result Comment: Elec tronically Signed By: Tho VILLEGAS, Del Duckworth\.br\Date and Time Signed: 08/15/23 08:[address] Maxillofacial w/o Contras ton 07-25-2023 CT Maxillofacial w/o Contrast Exam Date/Time: 07/23/2023 07:58 EDT Reason for Exam: J32.4 Report IMPRESSION: PARANASAL SINUS DISEASE DETAILED. Exam: CT Maxillofacial w/o Contrast History: Sinusitis Technique: Multiple contiguous axial images were obtained of the maxillofacial bones without contrast. Multiplanar reformats were obtained. Comparison: None available Findings: Maxillary Sinuses: Mild mucosal thickening. Ethmoid sinuses: Moderate mucosal thickening. Sphenoid sinuses: Mild mucosal thickening. Sphenoid sinus pneumatization that extends posteriorly to the anterior margin of the sella, compatible with presellar type pneumatization. Frontal sinuses: Mild mucosal thickening. Right sphenoethmoidal recess: Opacified Left sphenoethmoidal recess: Opacified Right ostiomeatal complex: Clear. Right frontal recess: Opacified Left ostiomeatal complex: Clear. Left frontal recess: Opacified Nasal septum: Minimal leftward deviation with spurring. Other: Keros type 2 olfactory fossa. No Onodi or Louie cells. Mastoid air cells & middle ears: Clear. The middle ears are unremarkable. Soft tissues & Brain: No acute abnormality identified. Orbital contents are within normal limits. Report All CT scans at this facility use dose modulation, iterative reconstruction, and/or weight based dosing when appropriate to reduce radiation dose to as low as reasonably achievable. Ordering Provider: Marci Alberts FINAL REPORT Dictated: 07/25/2023 2:21 pm Bravo Hurst DO Signed (Electronic Signature): 07/25/2023 2:21 pm Signed by: Bravo Hurst DO Transcribed by: SAHIL Technologist: KE [facility] Consent for Treatmenton Consent for Treatment [id number]#1.00TIFF [facility] Consent for Procedure/Surger yon 07-22-2023 Consent for Procedure/Surgery [id number]#1.00TIFF [facility] Nurse Consultation Noteon Nurse Consultation Note Assessment/Plan Patient tolerated the capsule and verified understanding of instructions. Medications amLODIPine 5 mg Tab, 5 mg= 1 tab(s), Oral, Daily atorvastatin 10 mg Tab, 10 mg= 1 tab(s), Oral, Daily EpiPen 2-Giovani, 0.3 mg, IntraMuscular, Once, PRN, Not taking estradiol 0.1 mg/g Vag Crm, See Instructions famotidine 20 mg Tab, Oral, BID Ferrex-150, 150 mg, Oral, Every other day fluticasone 0.05 mg/inh Nasal Donovan, 2 spray(s), Nasal, Daily Fosamax 70 mg Tab, 70 mg= 1 tab(s), Oral, qWeek levothyroxine 88 mcg (0.088 mg) Tab, 88 mcg= 1 tab(s), Oral, Daily Macrobid 100 mg Cap, 100 mg= 1 cap(s), Oral, As Directed, 3 refills, Not taking montelukast, 10 mg, Oral, qPM Pantoprazole [address] Tab, 40 mg= 1 tab(s), Oral, Daily, 1 refills ProAir HFA 90 mcg/inh inhalation aerosol, 2 puff(s), Inhalation, q4hr, PRN Reglan 10 mg Tab, 10 mg= 1 tab(s), Oral, Once Trelegy Ellipta, Inhalation, Daily Vitamin D3, Oral, Daily, Not taking Allergies Bee Stings (SOB - Shortness of breath, Hives) contrast media (iodine-based) (SOB - Shortness of breath, Hives) penicillin (Rash) sulfa drugs (Angio-oedema) Immunizations Vaccine Date Status Comments influenza virus vaccine, inactivated 12/31/2022 Recorded SARS-CoV-2 (COVID-19) [id number] 12/22/2021 Recorded influenza virus vaccine, inactivated 12/18/2021 Recorded SARS-CoV-2 (COVID-19) mRNA-1273 vaccine 07/04/2021 Recorded SARS-CoV-2 (COVID-19) mRNA-1273 vaccine 01/23/2021 Recorded influenza virus vaccine, inactivated 11/23/2020 Recorded SARS-CoV-2 (COVID-19) mRNA-1273 vaccine 06/02/2020 Recorded SARS-CoV-2 (COVID-19) mRNA-1273 vaccine 05/05/2020 Recorded SARS-CoV-2 (COVID-19) mRNA-1273 vaccine 2020 Recorded 3 shots to date influenza virus vaccine, inactivated 12/07/2019 Recorded pneumococcal 23-valent vaccine 01/05/2019 Recorded influenza virus vaccine, inactivated 01/05/2019 Recorded influenza virus vaccine, inactivated 12/17/2018 Recorded influenza virus vaccine, inactivated 12/19/2017 Recorded pneumococcal 13-valent vaccine 01/10/2017 Recorded influenza virus vaccine, inactivated 01/10/2017 Recorded pneumococcal 23-valent vaccine 01/04/2016 Recorded influenza virus vaccine, inactivated 01/04/2016 Recorded Normal [facility] XR Abdomen 1 Viewon 07-10-19 XR Abdomen 1 View Exam Date/Time: 07/05/2023 12:19 EDT Reason for Exam: Abd pain;Abdominal pain Report IMPRESSION: AGILE CAPSULE IS WITHIN THE SIGMOID COLON. EXAMINATION: XR Abdomen 1 View HISTORY: Abdominal pain. Agile capsule. TECHNIQUE: Frontal view of the abdomen and pelvis COMPARISON: CT abdomen pelvis 05/20/2023 FINDINGS: No calcifications identified over the bilateral renal shadows or expected course of the ureters. Small radiopaque structure most likely the agile capsule projects over the midline pelvis within the sigmoid colon. Nonobstructive bowel gas pattern. No evidence of free air. No acute osseous abnormality. Degenerative changes of the lumbar spine and both hips. Ordering Provider: Del Nettles FINAL REPORT Dictated: 07/10/2023 10:54 am Bravo Hurst DO Signed (Electronic Signature): 07/10/2023 10:54 am Signed by: Bravo Hurst DO Transcribed by: SAHIL Technologist: KEYA Technical Comments Radiation Dose: Ka,r in mGy = na DAP = na Normal [facility] Consent for Treatmenton 06-16 Consent for Treatment [id number]#[id number] Normal [facility] Nurse Consultation Noteon Nurse Consultation Note Assessment/Plan Patient tolerated swallowing the capsule. Verified understanding of instructions. Medications amLODIPine 5 mg Tab, 5 mg= 1 tab(s), Oral, Daily atorvastatin 10 mg Tab, 10 mg= 1 tab(s), Oral, Daily EpiPen 2-Giovani, 0.3 mg, IntraMuscular, Once, PRN, Not taking estradiol 0.1 mg/g Vag Crm, See Instructions famotidine 20 mg Tab, Oral, BID Ferrex-150, 150 mg, Oral, Every other day fluticasone 0.05 mg/inh Nasal Donovan, 2 spray(s), Nasal, Daily Fosamax 70 mg Tab, 70 mg= 1 tab(s), Oral, qWeek levothyroxine 88 mcg (0.088 mg) Tab, 88 mcg= 1 tab(s), Oral, Daily Macrobid 100 mg Cap, 100 mg= 1 cap(s), Oral, As Directed, 3 refills, Not taking montelukast, 10 mg, Oral, qPM Pantoprazole [address] Tab, 40 mg= 1 tab(s), Oral, Daily, 1 refills ProAir HFA 90 mcg/inh inhalation aerosol, 2 puff(s), Inhalation, q4hr, PRN Trelegy Ellipta, Inhalation, Daily Vitamin D3, Oral, Daily, Not taking Allergies Bee Stings (SOB - Shortness of breath, Hives) contrast media (iodine-based) (SOB - Shortness of breath, Hives) penicillin (Rash) sulfa drugs (Angio-oedema) Immunizations Vaccine Date Status Comments influenza virus vaccine, inactivated 12/31/2022 Recorded SARS-CoV-2 (COVID-19) mRNAMUL.ORD![id number] 12/22/2021 Recorded influenza virus vaccine, inactivated 12/18/2021 Recorded SARS-CoV-2 (COVID-19) mRNA-1273 vaccine 07/04/2021 Recorded SARS-CoV-2 (COVID-19) mRNA-1273 vaccine 01/23/2021 Recorded influenza virus vaccine, inactivated 11/23/2020 Recorded SARS-CoV-2 (COVID-19) mRNA-1273 vaccine 06/02/2020 Recorded SARS-CoV-2 (COVID-19) mRNA-1273 vaccine 05/05/2020 Recorded SARS-CoV-2 (COVID-19) mRNA-1273 vaccine 2020 Recorded 3 shots to date influenza virus vaccine, inactivated 12/07/2019 Recorded pneumococcal 23-valent vaccine 01/05/2019 Recorded influenza virus vaccine, inactivated 01/05/2019 Recorded influenza virus vaccine, inactivated 12/17/2018 Recorded influenza virus vaccine, inactivated 12/19/2017 Recorded pneumococcal 13-valent vaccine 01/10/2017 Recorded influenza virus vaccine, inactivated 01/10/2017 Recorded pneumococcal 23-valent vaccine 01/04/2016 Recorded influenza virus vaccine, inactivated 01/04/2016 Recorded Normal [facility] Physician Orderon 07-03-2023 Physician Order [id number]#1.00TIFF Normal [facility] Albumin [Mass/volume] in Ser um or Plasmaon 07-02-2023 Albumin [Mass/Vol] 3.6 g/dL 2.9-4.4 [facility] IgA [Mass/volume] in Serum o r Plasmaon 07-02-2023 IgA [Mass/Vol] 83 mg/dL 87-352 [facility] IgE [Units/volume] in Serum or Plasmaon 07-02-2023 IgE Qn 119 [IU]/mL 6-495 [facility] Comment on above: Performed at: [facility] [address] [id number] Director: Chay Stewart MD, Phone: [phone] IgG [Mass/volume] in Serum o r Plasmaon 07-02-2023 IgG [Mass/Vol] 509 mg/dL [phone] [facility] IgM [Mass/volume] in Serum o r Plasmaon 07-02-2023 IgM [Mass/Vol] 51 mg/dL 26-217 [facility] Immunoglobulin light chains. kappa.free [Mass/volume] in Serumon 07-02-2023 Immunoglobulin light chains.kappa.free (S) [Mass/Vol] 12.1 mg/L 3.3-19.4 [facility] Immunoglobulin light chains. kappa.free/Immunoglobulin light chains.lambda.free [Yony 07-02-2023 Immunoglobulin light chains.kappa.free/Immuno globulin light chains.lambda.free (S) [Mass ratio] 1.13 0.26-1.65 [facility] Comment on above: Performed at: [facility] [address] [id number] Director: Bj Hair PhD, Phone: [phone] Immunoglobulin light chains. lambda.free [Mass/volume] in Serum or Plasmaon 07-02-2023 Immunoglobulin light chains.lambda.free [Mass/Vol] 10.7 mg/L 5.7-26.3 [facility] No Panel Informationon 07-01 Protein Electrophoresis M-Car Not Observed g/dL Not Observed [facility] Protein Electrophoresis Note Comment . [facility] Comment on above: Protein electrophore sis scan will follow via computer,mail, or special events coordinator delivery. Protein [Mass/volume] in Ser um or Plasmaon 07-02-2023 Protein [Mass/Vol] 6.1 g/dL 6.0-8.5 [facility] Serum globulin measurement ( mass/volume)on 07-02-2023 Globulin (S) [Mass/Vol] 2.5 g/dL 2.2-3.9 [facility] Serum or plasma albumin/glob ulin mass ratioon 07-02-2023 Albumin/Globulin [Mass ratio] 1.5 {ratio} 0.7-1.7 [facility] Serum or plasma alpha 1 glob ulin measurement by electrophoresis (mass/volume)on 07-02-2023 Alpha 1 globulin Elph [Mass/Vol] 0.2 g/dL 0.0-0.4 [facility] Serum or plasma alpha 2 glob ulin measurement by electrophoresis (mass/volume)on 07-02-2023 Alpha 2 globulin Elph [Mass/Vol] 0.9 g/dL 0.4-1.0 [facility] Serum or plasma beta globuli n measurement by electrophoresis (mass/volume)on 07-02-2023 Beta globulin Elph [Mass/Vol] 0.9 g/dL 0.7-1.3 [facility] Serum or plasma gamma globul in measurement by electrophoresis (mass/volume)on 07-02-2023 Gamma globulin Elph [Mass/Vol] 0.5 g/dL 0.4-1.8 [facility] Serum or plasma immunoelectr ophoresis interpretationon 07-02-2023 Interpretation IEP [Interp] Comment . [facility] Comment on above: No monoclonality det ected. Basophils Auto (Bld) [#/Vol] on 06-27-2023 Basophils (Bld) [#/Vol] 0.0 10 3/uL 0.0-0.1 [facility] Basophils/100 WBC Auto (Bld) on 06-27-2023 Basophils/100 WBC (Bld) 0.2 % 0.2-2.0 [facility] Eosinophils/100 WBC Auto (Bl d)on 06-27-2023 Eosinophils/100 WBC (Bld) 0.2 % 0.9-7.0 [facility] Erythrocyte distribution wid th Auto (RBC) [Ratio]on 06-27-2023 Erythrocyte distribution width (RBC) [Ratio] 19.9 % 11.0-15.0 [facility] Hematocrit Auto (Bld) [Volum e fraction]on 06-27-2023 Hematocrit (Bld) [Volume fraction] 36.9 % 36.0-48.0 [facility] Hemoglobin [Mass/volume] in Bloodon 06-27-2023 Hemoglobin (Bld) [Mass/Vol] 12.0 g/dL 12.0-16.0 [facility] Iron binding capacity [Mass/ volume] in Serum or Plasmaon 06-27-2023 Iron binding capacity [Mass/Vol] 279.0 ug/dL 250.0-450. 0 [facility] Iron saturation [Mass Fracti on] in Serum or Plasmaon 06-27-2023 Iron saturation [Mass fraction] 20.8 % [facility] Laboratory - Chemistry and C hemistry - challengeon 06-27-2023 Ferritin [Mass/Vol] 110.0 ng/mL 8.0-252.0 [facility] Iron [Mass/Vol] 58.0 ug/dL 50.0-170.0 [facility] - Hematology and Cell countson 06-27-2023 Immature granulocytes/100 WBC (Bld) 1.4 % 0.0-0.5 [facility] Leukocytes [#/volume] correc radha for nucleated erythrocytes in Blood by Automated counon 06-27-2023 WBC corrected for nucl RBC Auto (Bld) [#/Vol] 11.8 10 3/uL 4.0-11.0 [facility] Lymphocytes Auto (Bld) [#/Vo l]on 06-27-2023 Lymphocytes (Bld) [#/Vol] 2.2 10 3/uL 1.2-3.8 [facility] Lymphocytes/100 WBC Auto (Bl d)on 06-27-2023 Lymphocytes/100 WBC (Bld) 18.3 % 20.5-60.0 [facility] MCH Auto (RBC) [Entitic mass ]on 06-27-2023 MCH (RBC) [Entitic mass] 28.6 pg 26.7-34.0 [facility] MCHC Auto (RBC) [Mass/Vol]on 06-27-2023 MCHC (RBC) [Mass/Vol] 32.5 g/dL 29.9-35.2 [facility] MCV Auto (RBC) [Entitic vol] on 06-27-2023 MCV (RBC) [Entitic vol] 87.9 fL 81.0-99.0 [facility] Monocytes Auto (Bld) [#/Vol] on 06-27-2023 Monocytes (Bld) [#/Vol] 1.4 10 3/uL 0.3-0.8 [facility] Monocytes/100 WBC Auto (Bld) on 06-27-2023 Monocytes/100 WBC (Bld) 11.8 % 1.7-12.0 [facility] Neutrophils Auto (Bld) [#/Vo l]on 06-27-2023 Neutrophils (Bld) [#/Vol] 8.0 10 3/uL 1.4-6.5 [facility] Neutrophils/100 WBC Auto (Bl d)on 06-27-2023 Neutrophils/100 WBC (Bld) 68.1 % 43.0-75.0 [facility] No Panel Informationon 06-26 Eosinophils # (Auto) 0.0 10 3/uL 0.0-0.7 [facility] Immature Granulocyte # (Auto) 0.17 10 3/uL 0.00-0.03 [facility] Platelet mean volume Auto (B ld) [Entitic vol]on 06-27-2023 Platelet mean volume (Bld) [Entitic vol] 9.7 fL 9.5-13.5 [facility] Platelets Auto (Bld) [#/Vol] on 06-27-2023 Platelets (Bld) [#/Vol] 378 10 3/uL 150-450 [facility] RBC Auto (Bld) [#/Vol]on RBC (Bld) [#/Vol] 4.20 10 6/uL 4.20-5.40 [facility] Gastroenterology Office/Clin ic Noteon 05-30-2023 Gastroenterology Office/Clinic [...] Every other day fluticasone 0.05 mg/inh Nasal Donovan, 2 spray(s), Nasal, Daily Fosamax 70 mg Tab, 70 mg= 1 tab(s), Oral, qWeek levothyroxine 88 mcg (0.088 mg) Tab, 88 mcg= 1 tab(s), Oral, Daily Macrobid 100 mg Cap, 100 mg= 1 cap(s), Oral, As Directed, 3 refills, Not (more content not included)... Normal [facility] Comment on above: Result Comment: Elec tronically [...] (05/22/2023), Co (more content not included)... Normal [facility] Comment on above: Result Comment: Elec tronically Signed By: Del Nettles MD\.br\Date and Time Signed: 05/30/23 08:34 EDT IntraOperative Documentson 0 05-29-2023 IntraOperative Documents [id number]#1.00TIFF Normal [facility] Main OR Intraoperative Recor don 05-24-2023 Main OR Intraoperative Record IntraOp Document Type FT Summary Primary Physician: Del Nettles MD Finalized Date/Time: 05/24/23 14:03:51 Pt. Name: MUNIRA CHESTER/Sex: 1950 Female Med Rec #: [id number] Physician: Del Nettles MD Financial #: [id number] Pt. Type: O Room/Bed: / Admit/Disch: 05/22/23 06:55:50 - 05/22/23 23:59:59 Institution: Case Times FT Entry 1 Patient Times In Room 05/22/23 08:12:00 Out Room 05/22/23 08:48:00 Procedure Times Start 05/22/23 08:17:00 Stop 05/22/23 08:45:00 Anesthesia Times Start 05/22/23 08:12:00 Stop 05/22/23 08:48:00 Time at [facility] 05/22/23 08:32:00 Last Modified By: Carrie KILLIAN, Neli Barrera 05/22/23 08:48:46 General Comments: 0823 EGD completed. /,RN 0829 Colonoscopy started. 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 Colonoscopy Primary Procedure Yes Primary Surgeon Del Nettles MD Start 05/22/23 08:17:00 Stop 05/22/23 08:45:00 Anesthesia [...] and tissue Entry 1 Skin Integrity Intact, [place], Warm, and Skin Abnormality No Dry Outcomes Met? Yes Last Modified By: Neli Butler RN 05/22/23 08:18:09 Post-Care Text: The patient is free from signs and symptoms of injury caused by extraneous objects Patien (more content not included)... 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 / Confirmed Recurrent UTI / SNOMED CT 784964683 / Confirmed Osteopenia of lumbar spine / SNOMED CT 780024274 / Confirmed Nocturia / SNOMED CT 661877511 / Confirmed Mild persistent asthma / SNOMED CT 8856648624 / Confirmed Migraine / SNOMED CT 37582539 / Confirmed Microscopic hematuria / SNOMED CT 060576770 / Confirmed Lumbar spondylosis / SNOMED CT 729001664 / Confirmed Mixed incontinence / SNOMED CT 44714657 / Confirmed Hypertension / SNOMED CT 3092659240 / Confirmed Hyperlipidemia / SNOMED CT 76581583 / Confirmed Personal history of colonic polyps / SNOMED CT 1821789386 / Confirmed History of gastric ulcer / SNOMED CT 218909005 / Confirmed H/O gastric ulcer / SNOMED CT 555931068 / Confirmed Graves disease / SNOMED CT 177317189 / Confirmed GERD (gastroesophageal reflux disease) / SNOMED CT 718233301 / Confirmed Incomplete bladder emptying / SNOMED CT 109808939 / Confirmed Epigastric pain / SNOMED CT 046513330 / Confirmed Chronic tension headache / SNOMED CT 634839245 / Confirmed Cervical spondylosis / SNOMED CT 6496739231 / Confirmed Bilateral cataracts / SNOMED CT 732043950 / Confirmed Benign essential hypertension / SNOMED CT 3068877 / Confirmed Hypothyroidism, acquired, autoimmune / SNOMED CT 804826693 / Confirmed Asymptomatic microscopic hematuria / SNOMED CT 8833475407 / Confirmed Asthma / SNOMED CT 876590620 / Confirmed Arthritis / SNOMED CT 1041100 / Confirmed Acute allergic rhinitis due to pollen / SNOMED CT 12263064 / Confirmed Abdominal bloating / SNOMED CT 824877302 / Confirmed Resolved: Reflux of urine / SNOMED CT 4750761759 Histories Procedure history: Colonoscopy ([id number]) on 09/07/2019 at 69 Years. EGD - Esophagogastroduodenoscop y (4358794566) on 09/07/2019 at 69 Years. EGD - Esophagogastroduodenoscop y (1437677334) on 01/16/2015 at 64 Years. Colonoscopy (574695265) on 01/16/2015 at 64 Years. Comments: 08/31/2019 16:19 EDT - Tonie Barragan LPN normal EGD - Esophagogastroduodenoscop y (6530650161) on 08/17/2011 at 61 Years. EGD - Esophagogastroduodenoscop y (2177795895) on 05/17/2011 at 60 Years. Laparoscopic cholecystectomy (23907159) on 06/16/2010 at 59 Years. Colonoscopy (017258422) on 01/16/2010 at 59 Years. section (32110245). Rotator cuff repair (154664332). Tubal ligation (784049580). Cataracts (8632740211). Foot (77848492). Social History Social & Psychosocial Habits Alcohol 05/14/2023 Risk Assessment: Denies Alcohol Use Substance Abuse 05/14/2023 Risk Assessment: Denies Substance Abuse Tobacco 05/14/2023 Tobacco Use: Never (less than 100 in l Smokeless tobacco use: Never Concerns about tobacco use in household: No . Physical Examination Airway: Mallampati classification: II (soft palate, fauces, uvula visible). Respiratory: adequate air exchange. Cardiovascular: Regular rhythm. Plan [place] [employer] (ASA) physical status classification: Class II. Anesthetic Preoperative Plan: Anesthesia General. Normal [facility] Comment on above: Result Comment: Elec tronically Signed By: Lavelle Logan DO, Jay Jay Springer\.melissa\Date and Time Signed: 05/24/23 13:56 EST Progress [...] when meets criteria ( To home ). Normal [facility] Comment on above: Result Comment: Elec tronically Signed By: Jay Jay Valderrama Jr, DO\.br\Date and Time Signed: 05/24/23 13:53 EST RAD - CT Reporton 05-24-2023 RAD - CT Report [id number]#1.00TIFF Normal [facility] RAD - CT Report [id number]#1.00TIFF Normal [facility] Consenton 05-23-2023 Consent [id number]#1.00TIFF Normal [facility] Discharge Instructionson Discharge Instructions [id number]#1.00TIFF Normal [facility] Postoperative Documentson Postoperative Documents [id number]#1.00TIFF Normal [facility] Colonoscopy Procedure Report on 05-22-2023 Colonoscopy Procedure Report Patient: MUNIRA CHESTER Age: 72 years Sex: Female : 1950 Associated Diagnoses: None Author: Tho VILLEGAS, Del Springer. Pre-Procedure Procedure Date 05/22/2023 08:47:00 . Procedure Type: Colonoscopy. Procedure provider me. Current history and physical Colonoscopy ([id number]) on 09/07/2019 at 69 Years. EGD - Esophagogastroduodenoscop y (9793838788) on 09/07/2019 at 69 Years. EGD - Esophagogastroduodenoscop y (5920156012) on 01/16/2015 at 64 Years. Colonoscopy (422472830) on 01/16/2015 at 64 Years. Comments: 08/31/2019 16:19 EDT - Tonie Barragan LPN normal EGD - Esophagogastroduodenoscop y (9622730680) on 08/17/2011 at 61 Years. EGD - Esophagogastroduodenoscop y (0217348814) on 05/17/2011 at 60 Years. Laparoscopic cholecystectomy (19283175) on 06/16/2010 at 59 Years. Colonoscopy (470483139) on 01/16/2010 at 59 Years. section (). Rotator cuff repair (876473088). Tubal ligation (106644926). Cataracts (2531386627). Foot (86934364).. Past Medical History Resolved Reflux of urine (7478248858): Resolved.. Family History Rheumatoid arthritis Mother Primary malignant neoplasm of lung Mother Diabetes mellitus type 2 Father Primary malignant neoplasm of female breast Sister . Procedure History Colonoscopy (661326588) on 09/07/2019 at 69 Years. EGD - Esophagogastroduodenoscop y (3338244438) on 09/07/2019 at 69 Years. EGD - Esophagogastroduodenoscop y (7571910707) on 01/16/2015 at 64 Years. Colonoscopy (891709416) on 01/16/2015 at 64 Years. Comments: 08/31/2019 16:19 EDT - Tonie Barragan LPN normal EGD - Esophagogastroduodenoscop y (5745689194) on 08/17/2011 at 61 Years. EGD - Esophagogastroduodenoscop y (1942279025) on 05/17/2011 at 60 Years. Laparoscopic cholecystectomy (94299472) on 06/16/2010 at 59 Years. Colonoscopy (858234125) on 01/16/2010 at 59 Years. section (). Rotator cuff repair (254317742). Tubal ligation (682658380). Cataracts (0728448206). Foot (00413034).. Colorectal neoplasm risk assessment Average risk. Informed [...] infection., # 30 cap(s), Refills(s) 3, Pharmacy: [facility], 158, cm, 02/20/23 8:48:00 EST, Height/Length Dosing, 68.5, kg,... Pantoprazole [address] Tab: 40 mg = 1 tab(s), Oral, Daily, # 90 tab(s), Refills(s) 1, Pharmacy: [facility] [address], 154.9, cm, 12/11/19 9:26:00 EDT, Height/Length Dosing, 70.2, kg, 12/11/19 9:26:00 EDT, Weight Dosing estradiol 0.1 mg/g Vag Crm: See Instructions, 42.5 gm, Refill(s) 0, apply pea sized amount to urethra 2x/wk, [facility], 158, cm, 02/20/23 8:48:00 EST, [...] of stomach acid fluticasone 0.05 mg/inh Nasal Donovan: 2 spray(s), Nasal, Daily, Refill(s) 0 levothyroxine [...] Findings Diverticul (more content not included)... Normal [facility] Comment on above: Other Comment: Alma enrique Attachment - attachment storage system not supported [id number] Can be viewed in source system Missing Attachment - attachment storage system not supported [id number] Can be viewed in source system Missing Attachment - attachment storage system not supported 2957731 Can be viewed in source system Missing Attachment - attachment storage system not supported 9379951 Can be viewed in source system Missing Attachment - attachment storage system not supported 6532947 Can be viewed in source system Missing Attachment - attachment storage system not supported 6153835 Can be viewed in source system Missing Attachment - attachment storage system not supported 1800544 Can be viewed in source system Missing Attachment - attachment storage system not supported 1547781 Can be viewed in source system Consent for Treatmenton Consent for Treatment [id number]#1.00TIFF [facility] Consultation Noteon 05-22-19 24 Consultation Note Patient: MUNIRA CHESTER Age: 72 years Sex: Female : 1950 Associated Diagnoses: None Author: Mouchli MD, Mohamad A. Pre-Procedure Procedure Date 05/22/2023 08:23:00 . Procedure [...] infection., # 30 cap(s), Refills(s) 3, Pharmacy: [facility], 158, cm, 02/20/23 8:48:00 EST, Height/Length Dosing, 68.5, kg,... Pantoprazole [address] Tab: 40 mg = 1 tab(s), Oral, Daily, # 90 tab(s), Refills(s) 1, Pharmacy: [facility] [address], 154.9, cm, 12/11/19 9:26:00 EDT, Height/Length Dosing, 70.2, kg, 12/11/19 9:26:00 EDT, Weight Dosing estradiol 0.1 mg/g Vag Crm: See Instructions, 42.5 gm, Refill(s) 0, apply pea sized amount to urethra 2x/wk, [facility], 158, cm, 02/20/23 8:48:00 EST, [...] of stomach acid fluticasone 0.05 mg/inh Nasal Donovan: 2 spray(s), Nasal, Daily, Refill(s) 0 levothyroxine [...] obtained from the duodenum Images Procedure images: Rec_hd_video__29_414.jpg Rec_hd_video___44_784.jpg Rec_hd_video___53_345.jpg Rec1_hd_video_2023__T __390.jpg Rec1_hd_video_2023__T _23_607.jpg Rec1_hd_video_2023__T _30_290.jpg Rec1_hd_video_2023__T _16_512.jpg Rec1_hd_video_2023__T _56_296.jpg Rec1_hd_video_2023__T __57_453.jpg Rec1_hd_video_2023__T __31_556.jpg Rec1_hd_video_2023__T __57_490.jpg . Post-Procedure Complications: none. Estimated blood loss: none. Specimens: sent to pathology. Devices/ implants: none left in place. Impression and Plan EGD: Diagnosis: Bile reflux gastritis ([id number] K29.60, Working, Medical). Course: Progressing as expected. Education and Follow-up: Counseled: Family. Notes: Continue current medication Follow-up pathology report. might benefit from CT enterography versus capsule endoscopy in the future [facility] Comment on above: Result Comment: Elec tronically Signed By: Tho VILLEGAS, Del Ledezma.br\Date and Time Signed: 05/22/23 09:05 EST Other Comment: Alma enrique Attachment - attachment storage system not supported [id number] Can be viewed in source systemMissing Attachment - attachment storage system not supported 2610705 Can be viewed in source systemMissing Attachment - attachment storage system not supported 7947955 Can be viewed in source systemMissing Attachment - attachment storage system not supported 4952140 Can be viewed in source systemMissing Attachment - attachment storage system not supported 4838747 Can be viewed in source systemMissing Attachment - attachment storage system not supported 9517740 Can be viewed in source systemMissing Attachment - attachment storage system not supported 1715931 Can be viewed in source systemMissing Attachment - attachment storage system not supported 2826087 Can be viewed in source systemMissing Attachment - attachment storage system not supported 4162318 Can be viewed in source systemMissing Attachment - attachment storage system not supported 4944870 Can be viewed in source systemMissing Attachment - attachment storage system not supported 5226160 Can be viewed in source system Consultation Note Patient: MUNIRA CHESTER Age: 72 years Sex: Female : 1950 Associated Diagnoses: None Author: Del Nettles MD Pre-Procedure Procedure Date 05/22/2023 08:47:00 . Procedure Type: Colonoscopy. Procedure provider me. Current history and physical Colonoscopy ([id number]) on 09/07/2019 at 69 Years. EGD - Esophagogastroduodenoscop y ([id number]) on 09/07/2019 at 69 Years. EGD - Esophagogastroduodenoscop y ([id number]) on 01/16/2015 at 64 Years. Colonoscopy ([id number]) on 01/16/2015 at 64 Years. Comments: 08/31/2019 16:19 EDT - Yung ALDRIDGE, Tonie Esqueda normal EGD - Esophagogastroduodenoscop y ([id number]) on 08/17/2011 at 61 Years. EGD - Esophagogastroduodenoscop y ([id number]) on 05/17/2011 at 60 Years. Laparoscopic cholecystectomy ([id number]) on 06/16/2010 at 59 Years. Colonoscopy ([id number]) on 01/16/2010 at 59 Years. section ([id number]). Rotator cuff repair (891842234). Tubal ligation (760440774). Cataracts (3704670174). Foot (70293234).. Past Medical History Resolved Reflux of urine ([id number]): Resolved.. Family History Rheumatoid arthritis Mother Primary malignant neoplasm of lung Mother Diabetes mellitus type 2 Father Primary malignant neoplasm of female breast Sister . Procedure History Colonoscopy ([id number]) on 09/07/2019 at 69 Years. EGD - Esophagogastroduodenoscop y (9564629805) on 09/07/2019 at 69 Years. EGD - Esophagogastroduodenoscop y (2981332647) on 01/16/2015 at 64 Years. Colonoscopy ([id number]) on 01/16/2015 at 64 Years. Comments: 08/31/2019 16:19 EDT - Tonie Barragan LPN normal EGD - Esophagogastroduodenoscop y ([id number]) on 08/17/2011 at 61 Years. EGD - Esophagogastroduodenoscop y (4256114635) on 05/17/2011 at 60 Years. Laparoscopic cholecystectomy ([id number]) on 06/16/2010 at 59 Years. Colonoscopy ([id number]) on 01/16/2010 at 59 Years. section (36355473). Rotator cuff repair (772902770). Tubal ligation (154297116). Cataracts (9694022696). Foot (78704080).. Colorectal neoplasm risk assessment Average risk. Informed [...] infection., # 30 cap(s), Refills(s) 3, Pharmacy: [facility], 158, cm, 02/20/23 8:48:00 EST, Height/Length Dosing, 68.5, kg,... Pantoprazole [address] Tab: 40 mg = 1 tab(s), Oral, Daily, # 90 tab(s), Refills(s) 1, Pharmacy: [facility] [facility], 154.9, cm, 12/11/19 9:26:00 EDT, Height/Length Dosing, 70.2, kg, 12/11/19 9:26:00 EDT, Weight Dosing estradiol 0.1 mg/g Vag Crm: See Instructions, 42.5 gm, Refill(s) 0, apply pea sized amount to urethra 2x/wk, [facility], 158, cm, 02/20/23 8:48:00 EST, [...] of stomach acid fluticasone 0.05 mg/inh Nasal Donovan: 2 spray(s), Nasal, Daily, Refill(s) 0 levothyroxine [...] well. Findings (more content not included)... Normal [facility] Comment on above: Result Comment: Elec tronically Signed By: Del Nettles MD\.br\Date and Time Signed: 05/22/23 08:51 EST error Other Comment: Alma enrique Attachment - attachment storage system not supported [id number] Can be viewed in source system Missing Attachment - attachment storage system not supported [id number] Can be viewed in source system Missing Attachment - attachment storage system not supported [id number] Can be viewed in source system Missing Attachment - attachment storage system not supported [id number] Can be viewed in source system Missing Attachment - attachment storage system not supported [id number] Can be viewed in source system Missing Attachment - attachment storage system not supported [id number] Can be viewed in source system Missing Attachment - attachment storage system not supported [id number] Can be viewed in source system Missing Attachment - attachment storage system not supported [id number] Can be viewed in source system Discharge Instructionson Discharge Instructions MUNIRA CHESTER :1950 Visit Date:05/22/2023 Inpatient Discharge Instructions Your Care Team Admitting Physician - Del Nettles MD Referring Physician - Del Nettles MD. Reason for Your Visit DIVERTICULOSIS OF LARGE [...] Tab) fluticasone nasal (fluticasone 0.05 mg/inh Nasal Donovan) fluticasone/umeclidinium/ vilanterol (Trelegy Ellipta) iron polysaccharide (Ferrex-150) [...] VILLEGAS, Asuncion [place] Where: [facility] Comment on above: Result Comment: Elec tronically [...] Tab) fluticasone nasal (fluticasone 0.05 mg/inh Nasal Donovan) fluticasone/umeclidinium/ vilanterol (Trelegy Ellipta) iron polysaccharide (Ferrex-150) [...] VILLEGAS, Asuncion [place] Where: [facility] Comment on above: Result Comment: Elec tronically Signed By: Nat Rodriguez I\.br\Date and Time Signed: 05/22/23 08:59 EST EGDon 05-22-2023 Esophagogastroduodenosco py Patient: MUNIRA CHESTER Age: 72 years Sex: Female : 1950 Associated Diagnoses: None Author: Del Nettles MD Pre-Procedure Procedure Date 05/22/2023 08:23:00 . Procedure Type: Esophagogastroduodenoscop y with biopsy. Pre-procedure diagnosis: Diagnostic: Anemia of iron deficiency. Medications (Selected) Inpatient Medications Ordered Lactated Ringers IV Acrlene 1000 mL 1,000 mL: 1,000 mL, IV, [...] infection., # 30 cap(s), Refills(s) 3, Pharmacy: [facility], 158, cm, 02/20/23 8:48:00 EST, Height/Length Dosing, 68.5, kg,... Pantoprazole [address] Tab: 40 mg = 1 tab(s), Oral, Daily, # 90 tab(s), Refills(s) 1, [facility] [address], 154.9, cm, 12/11/19 9:26:00 EDT, Height/Length Dosing, 70.2, kg, 12/11/19 9:26:00 EDT, Weight Dosing estradiol 0.1 mg/g Vag Crm: See Instructions, 42.5 gm, Refill(s) 0, apply pea sized amount to urethra 2x/wk, [facility], 158, cm, 02/20/23 8:48:00 EST, [...] of stomach acid fluticasone 0.05 mg/inh Nasal Donovan: 2 spray(s), Nasal, Daily, Refill(s) 0 levothyroxine [...] obtained from the duodenum Images Procedure images: Rec1_hd_video_2023__T _29_414.jpg Rec1_hd_video_2023__T _44_784.jpg Rec1_hd_video_2023__06T _53_345.jpg Rec1_hd_video_2023__06T __03_390.jpg Rec1_hd_video_2023__06T _23_607.jpg Rec1_hd_video_2023__06T _30_290.jpg Rec1_hd_video_2023__06T 08__16_512.jpg Rec1_hd_video_2023__06T _56_296.jpg Rec1_hd_video_2023__06T 08_57_453.jpg Rec1_hd_video_2023__06T _31_556.jpg Rec1_hd_video_2023_03_06T _57_490.jpg . Post-Procedure Complications: none. Estimated blood loss: none. Specimens: sent to pathology. Devices/ implants: none left in place. Impression and Plan EGD: Diagnosis: Bile reflux gastritis (HDN13-QX K29.60, Working, Medical). Course: Progressing as expected. Education and Follow-up: Counseled: Family. Notes: Continue current medication Follow-up pathology report. [facility] Comment on above: Other Comment: Alma enrique Attachment - attachment storage system not supported [id number] Can be viewed in [facility] Attachment - attachment storage system not supported [id number] Can be viewed in [facility] Attachment - attachment storage system not supported [id number] Can be viewed in source [facility]Miss[facility] Attachment - attachment storage system not supported [id number] Can be viewed in source [facility]Miss[facility] Attachment - attachment storage system not supported [id number] Can be viewed in source [facility] Attachment - attachment storage system not supported [id number] Can be viewed in source systemMissad[facility] Attachment - attachment storage system not supported [id number] Can be viewed in source [facility] Attachment - attachment storage system not supported [id number] Can be viewed in source systemM[facility] Attachment - attachment storage system not supported [id number] Can be viewed in source systemM[facility] Attachment - attachment storage system not supported [id number] Can be viewed in source [facility]Miss[facility] [place] Attachment - attachment storage system not supported [id number] Can be viewed in source system Main OR PACU I Recordon 03-0 Main OR PACU I Record PACU Phase I Docum ent Type FT Summary Primary Physician: Del Nettles MD Finalized Date/Time: 05/22/23 09:41:42 Pt. Name: MUNIRA CHESTER/Sex: 1950 Female Med Rec #: [id number] Physician: Del Nettles MD Financial #: [id number] Pt. Type: O Room/Bed: / Admit/Disch: 05/22/23 [...] By: Nat Rodriguez I 05/22/23 09:41 Normal [facility] Main OR Preoperative Recordo n 05-22-2023 Main OR Preoperative Record Holding Area Document Type FT Summary Primary Physician: Del Nettles MD Finalized Date/Time: 05/22/23 07:08:55 Pt. Name: MUNIRA CHESTER/Sex: 1950 Female Med Rec #: [id number] Physician: Del Nettles MD Financial #: [id number] Pt. Type: O Room/Bed: / Admit/Disch: 05/22/23 06:55:50 - Institution: Case Times Holding FT Pre-Care Text: Verifies consent for planned procedure, identifies individual values and wishes concerning care, includes family members in perioperative teaching Secures patient's records' belongings, and valuables, maintains patient's dignity and privacy, and maintains patient confidentiality Entry 1 In Holding 05/22/23 07:00:00 Outcomes Met? Yes Last Modified By: Neli Butler RN 05/22/23 07:07:39 Post-Care Text: The patient participates [...] comments below for reason Last Modified By: Neli Butler RN 05/22/23 07:08:52 General Comments: Pt finished colon prep at 0300, states stool is clear liquid yellow. Has been NPO since. /,RN Finalized By: Neli Butler RN Document Signatures Signed By: Neli Butler RN 05/22/23 07:08 Normal [facility] Monitor Recordon 05-22-2023 Monitor Record [id number]#1.00TIFF [facility] Monitor Record [id number]#1.00TIFF [facility] Patient Education - Texton 0 05-22-2023 Patient [...] unsweetened, w/added ascorbic acid 1 cup 0.5 Alcorn 1 cup 0.7 Vegetables Cooked Green beans 1 cup 4.0 Carrots 1/2 cup sliced 2.3 Peas 1 cup 8.8 Potato (baked, with skin) 1 medium potato 3.8 Raw [place] (with peel) 1 cucumber 1.5 Lettuce 1 [...] 8.7 Peanuts 1/2 cup 7.9 Chart from UpToDate 2013. SEEK IMMEDIATE MEDIC (more content not included)... Normal [facility] Consent for Procedure/Surger yon 05-16-2023 Consent for Procedure/Surgery [id number]#1.00TIFF Normal [facility] Ambulatory Visit Summaryon 0 05-14-2023 Ambulatory Visit [...] Tab) fluticasone nasal (fluticasone 0.05 mg/inh Nasal Donovan) fluticasone/umeclidinium/ vilanterol (Trelegy Ellipta 200 mcg-62.5 mcg-25 [...] VILLEGAS, Asuncion [place] Where: [facility] Gastroenterology Office/Clin ic Noteon 05-14-2023 Gastroenterology Office/Clinic [...] Tab, Oral, BID fluticasone 0.05 mg/inh Nasal Donovan, 2 spray(s), Nasal, Daily Fosamax 70 mg [...] virus vaccine, inactivated 12/31/2022 Recorded SARS-CoV-2 (COVID-19) [id number].ORD![id number] 12/22/2021 Recorded influenza virus vaccine, inactivated 12/18/2021 Recorded SARS-CoV-2 (COVID-19) mRNA-1273 vaccine 07/04/2021 Recorded SARS-CoV-2 (COVID-19) mRNA-1273 vaccine 01/23/2021 Recorded influenza virus vaccine, inactivated 11/23/2020 Recorded SARS-CoV-2 (COVID-19) mRNA-1273 vaccine 06/02/2020 Recorded SARS-CoV-2 (COVID-19) mRNA-1273 vaccine 05/05/2020 Recorded SARS-CoV-2 (COVID-19) mRNA-1273 vaccine 2020 Recorded 3 shots to date infl (more content not included)... Normal [facility] Comment on above: Result Comment: Elec [...] Tab, Oral, BID fluticasone 0.05 mg/inh Nasal Donovan, 2 spray(s), Nasal, Daily Fosamax 70 mg [...] Abuse - Denies (more content not included)... Normal [facility] Comment on above: Result Comment: Elec tronically Signed By: Tho VILLEGAS, Del Duckworth\.br\Date and Time Signed: 05/14/23 13:07 EST Physician Referralon 024 Physician Referral [id number]#1.00TIFF [facility] Ambulatory Visit Summaryon 1 04-23-2022 Ambulatory Visit Summary CHESTERMUNIRA :1950 Visit Date:02/20/2023 Ambulatory Visit Instructions Your Diagnosis Mixed incontinence Recurrent UTI Urethral caruncle Tests Performed Urnls Dip Stick Auto w/o Microscopy POC [id number] Your Care Team Attending Physician - Dewayne [...] Tab) fluticasone nasal (fluticasone 0.05 mg/inh Nasal Donovan) fluticasone/umeclidinium/ vilanterol (Trelegy Ellipta 200 mcg-62.5 mcg-25 [...] Asuncion Buchanan MD Where: [facility] Patient Educationon 02-21-20 Patient Education [...] pelvic muscle tension or spasms. ? Take gsvi-bjz-hsmcmbe and prescription medicines only as told by [...] movement i (more content not included)... Normal [facility] Urology Office/Clinic Noteon 02-20-2023 Urology [...] Information Dewayne VILLEGAS, Asuncion [place], URL, [facility] [address], [place] [address] [phone] Additional Instructions: 1 yr Patient Education Pelvic [...] stricture Epigast (more content not included)... Normal [facility] Comment on above: Result Comment: Elec tronically Signed By: Asuncion Buchanan MD\.br\Date and Time Signed: 02/20/23 18:21 EST\.br\Electronically Co-Signed By: Kimmie Lemus\.br\Date and Time Co-Signed: 02/20/23 09:53 EST POINT OF CARE GLUCOSEon - Glucose [Mass/Vol] 94 mg/dL Normal 74-106 [facility] Comment on above: Performed By: #### P OCGLUC ####[facility] [address] [place], [place] [address]VyDr. Dwight Mario Glucose [Mass/Vol] 106 mg/dL Normal 74-106 [facility] Comment on above: Performed By: #### P OCGLUC ####[facility] [address] [place] [id number]. Dwight Mario Covid-19 PCR (CVDTB)on 03-18 SARS-CoV-2 (COVID-19) RNA GIOVANI+probe Ql (Unsp spec) Not detected Normal NOT DETECTED [facility] Comment on above: Result Comment: This test is not yet approved or cleared by the [place] FDA. When there are no FDA-approved or cleared tests available, and other criteria are met, FDA can make tests available under an emergency access mechanism called an Emergency Use Authorization (EUA). The EUA for this test is supported by the [place] of Health and Human Service's (HHS's) declaration [...] SARS-CoV-2. Performed By: #### C VDTBH #### [facility] [address] [place] [address] Dr. Dwight Mario PROF CHEM 8 (BAS METB)on Anion gap [Moles/Vol] 13.4 mmol/L Normal [facility] Comment on above: Performed By: #### B MP #### [facility] [address] [place] [address] Dr. Dwight Mario Calcium [Mass/Vol] 9.1 mg/dL Normal 8.5-10.1 [facility] Comment on above: Performed By: #### B MP #### [facility] [address] [place] [address] Dr. Dwight Mario Chloride [Moles/Vol] 107 mmol/L Normal 98-107 [facility] Comment on above: Performed By: #### B MP #### [facility] [address] [place] [address] [address] Dwight Mario CO2 [Moles/Vol] 26.5 mmol/L Normal 21.0-32.0 [facility] Comment on above: Performed By: #### B MP #### [facility] [address] [place] [address] [address] Dwight Mario Creatinine [Mass/Vol] 0.76 mg/dL Normal 0.55-1.02 [facility] Comment on above: Performed By: #### B MP #### [facility] [address] [place] [address] [address] Dwight Mario EGFR-AF GUAMANIAN >60 Normal >=60 [facility] Comment on above: Performed By: #### B MP #### [facility] [address] [place] [address] [address] Dwight Mario EGFR-NON AF GUAMANIAN >60 Normal >=60 [facility] Comment on above: Performed By: #### B MP #### [facility] [address] [place] [address] [address] Dwight Mario Glucose [Mass/Vol] 108 mg/dL Critically high 74-106 [facility] Comment on above: Performed By: #### B MP #### [facility] [address] [place] [address] [address] Dwight Mario Potassium [Moles/Vol] 3.9 mmol/L Normal 3.5-5.1 [facility] Comment on above: Performed By: #### B MP #### [facility] [address] [place] [address] [address] Dwight Mario Sodium [Moles/Vol] 143 mmol/L Normal 136-145 [facility] Comment on above: Performed By: #### B MP #### [facility] [address] [place] [address] [address] Dwight Mario Urea nitrogen [Mass/Vol] 25.0 mg/dL Critically high 7.0-18 .0 [facility] Comment on above: Performed By: #### B MP #### [facility] [address] [place] [address] Dr. Dwight Mario Urea nitrogen/Creatinine [Mass ratio] 32.9 mg/mg Normal [facility] Comment on above: Performed By: #### B MP #### [facility] [address] [place] [address] Dr. Dwight Mario CBC AUTO DIFFon 01-29-2022 BASO # 0.0 103/ul Normal 0.0-0.1 [facility] Comment on above: Performed By: #### C BC #### [facility] [address] [place] [address] Dr. Dwight Mario Basophils/100 WBC (Bld) 0.4 % Normal 0.2-2.0 [facility] Comment on above: Performed By: #### C BC #### [facility] [address] [place] [address] Dr. Dwight Mario EO # 0.3 103/ul Normal 0.0-0.7 [facility] Comment on above: Performed By: #### C BC #### [facility] [address] [place] [address] Dr. Dwight Mario Eosinophils/100 WBC (Bld) 2.8 % Normal 0.9-7.0 [facility] Comment on above: Performed By: #### C BC #### [facility] [address] [place] [address] Dr. Dwight Mario Erythrocyte distribution width (RBC) [Ratio] 14.0 % Normal 11.0-15.0 [facility] Comment on above: Performed By: #### C BC #### [facility] [address] [place] [address] Dr. Dwight Mario Hematocrit (Bld) [Volume fraction] 38.3 % Normal 36.0-48.0 [facility] Comment on above: Performed By: #### C BC #### [facility] [address] [place] [address] Dr. Dwight Mario Hemoglobin (Bld) [Mass/Vol] 12.6 g/dL Normal 12.0-16.0 [facility] Comment on above: Performed By: #### C BC #### [facility] [address] [place] [address] Dr. Dwight Mario IG # 0.03 10e3/ul Normal 0.00-0.03 [facility] Comment on above: Performed By: #### C BC #### [facility] [address] [place] [address] Dr. Dwight Mario IG % 0.3 % Normal 0.0-0.5 [facility] Comment on above: Performed By: #### C BC #### [facility] [address] [place] [address] Dr. Dwight Mario LYMPH # 2.9 103/ul Normal 1.2-3.8 [facility] Comment on above: Performed By: #### C BC #### [facility] [address] [place] [address] Dr. Dwight Mario Lymphocytes/100 WBC (Bld) 29.0 % Normal 20.5-60.0 [facility] Comment on above: Performed By: #### C BC #### [facility] [address] [place] [address] Dr. Dwight Mario MANUAL DIFF REQ NO Normal [facility] Comment on above: Performed By: #### C BC #### [facility] [address] [place] [address] Dr. Dwight Mario MCH (RBC) [Entitic mass] 30.3 pg Normal 26.7-34.0 [facility] Comment on above: Performed By: #### C BC #### [facility] [address] [place] [address] Dr. Dwight Mario MCHC (RBC) [Mass/Vol] 32.9 g/dL Normal 29.9-35.2 [facility] Comment on above: Performed By: #### C BC #### [facility] [address] [place] [address] Dr. Dwight Mario MCV (RBC) [Entitic vol] 92.1 fL Normal 81.0-99.0 [facility] Comment on above: Performed By: #### C BC #### [facility] [address] [place] [address] Dr. Dwight Mario MONO # 0.8 103/ul Normal 0.3-0.8 [facility] Comment on above: Performed By: #### C BC #### [facility] [address] [place] [address] Dr. Dwight Mario Monocytes/100 WBC (Bld) 7.9 % Normal 1.7-12.0 [facility] Comment on above: Performed By: #### C BC #### [facility] [address] [place] [address] Dr. Dwight Mario NEUT # 5.9 103/ul Normal 1.4-6.5 [facility] Comment on above: Performed By: #### C BC #### [facility] [address] [place] [address] Dr. Dwight Mario Neutrophils/100 WBC (Bld) 59.6 % Normal 43.0-75.0 [facility] Comment on above: Performed By: #### C BC #### [facility] [address] [place] [address] Dr. Dwight Mario Platelet mean volume (Bld) [Entitic vol] 9.4 fL Critically low 9.5-13.5 [facility] Comment on above: Performed By: #### C BC #### [facility] [address] [place] [address] Dr. Dwight Mario PLT 385 103/ul Normal 150-450 [facility] Comment on above: Performed By: #### C BC #### [facility] [address] [place] [address] Dr. Dwight Mario RBC 4.16 106/ul Critically low 4.20-5.40 [facility] Comment on above: Performed By: #### C BC #### [facility] [address] [place] [address] Dr. Dwight Mario WBC 10.0 103/ul Normal 4.0-11.0 [facility] Comment on above: Performed By: #### C BC #### [facility] [address] [place], [place] [address] Dr. Dwight Mario LIPID PROFILEon 01-29-2022 CHOL-HDL RATIO NORM SEE BELOW Normal [facility] Comment on above: Result Comment: 3.3 - 4.4 LOW RISK 4.4 - 7.1 AVERAGE RISK 7.1 - 11.0 MODERATE RISK >11.0 HIGH RISK Performed By: #### L IPID, BMP, ALT, TSH ####[facility] [address] [place] [id number]. Dwight Mario Cholesterol [Mass/Vol] 184 mg/dL Normal <=200 [facility] Comment on above: Performed By: #### L IPID, BMP, ALT, TSH ####[facility] [address] [place] [address]Dr. Dwight Mario Cholesterol in HDL [Mass/Vol] 61 mg/dL Critically high 40-60 [facility] Comment on above: Performed By: #### L IPID, BMP, ALT, TSH ####[facility] [address] [place] [address]Dr. Dwight Mario Cholesterol in LDL [Mass/Vol] 96.0 mg/dL Normal [facility] Comment on above: Performed By: #### L IPID, BMP, ALT, TSH ####[facility] [address] [place] [id number]. Dwight Mario Cholesterol.total/Choles terol in HDL [Mass ratio] 3.0 {ratio} Normal [facility] Comment on above: Performed By: #### L IPID, BMP, ALT, TSH ####[facility] [address] [place] [id number]. Dwight Mario HDL NORMAL > or = 60 mg/dl - LO W CARDIOVASCULAR RISK <40 mg/dl - HIGH CARDIOVASCULAR RISK Normal [facility] Comment on above: Performed By: #### L IPID, BMP, ALT, TSH ####[facility] [address] [place] [id number]. Dwight Mario LDL CALC NORMAL SEE BELOW Normal [facility] Comment on above: Result Comment: <100 mg/dl OPTIMAL 100 - 129 mg/dl NEAR OR ABOVE OPTIMAL 130 - 159 mg/dl BORDERLINE HIGH 160 - 189 mg/dl HIGH >190 mg/dl VERY HIGH Performed By: #### L IPID, BMP, ALT, TSH ####[facility] [address] [place], [place] [address]Jh. Dwight Mario Triglyceride [Mass/Vol] 135 mg/dL Normal <=150 [facility] Comment on above: Performed By: #### L IPID, BMP, ALT, TSH ####[facility] [address] [place], [place] [address]Ts. Dwight Mario VLDL CALC 27.0 mg/dL Normal [facility] Comment on above: Performed By: #### L IPID, BMP, ALT, TSH ####[facility] [address] [place], [place] [address]No. Dwight Mario MG MAMM SCREEN 3D ALLEGRA CADon 01-29-2022 MG MAMM SCREEN 3D ALLEGRA CAD Patient: MUNIRA CHESTER Exam Date: 01/29/2022 : 1950 Gender:F Ordering : DR ANDREA GOLDEN D.O. Admission #: [id number] Family : DR. MADISON BURNS D.O. Order #: [id number] CLICK HERE TO VIEW EXAM RADIOLOGY REPORT [...] breast cancer at age 61. LOCATION: [facility] BREAST COMPOSITION: Scattered areas fibroglandular density. FINDINGS: [...] MD on 01/29/2022 at 15:25 Normal [facility] PROF CHEM 8 (BAS METB)on Anion gap [Moles/Vol] 9.7 mmol/L Normal [facility] Comment on above: Performed By: #### L IPID, BMP, ALT, TSH ####[facility] [address] [place] [address]Dr. Dwight Mario Calcium [Mass/Vol] 8.9 mg/dL Normal 8.5-10.1 [facility] Comment on above: Performed By: #### L IPID, BMP, ALT, TSH ####[facility] [address] [place], [place] [address]Dr. Dwight Mario Chloride [Moles/Vol] 105 mmol/L Normal 98-107 [facility] Comment on above: Performed By: #### L IPID, BMP, ALT, TSH ####[facility] [address] [place], [place] [address]Dr. Dwight Mario CO2 [Moles/Vol] 27.3 mmol/L Normal 21.0-32.0 [facility] Comment on above: Performed By: #### L IPID, BMP, ALT, TSH ####[facility] [address] [place], [place] [address]Dr. Dwight Mario Creatinine [Mass/Vol] 0.80 mg/dL Normal 0.55-1.02 [facility] Comment on above: Performed By: #### L IPID, BMP, ALT, TSH ####[facility] [address] [place], [place] [address]Dr. Dwight Mario EGFR-AF GUAMANIAN >60 Normal >=60 [facility] Comment on above: Performed By: #### L IPID, BMP, ALT, TSH ####[facility] [address] [place], [place] [address]Dr. Melissamarcie Mario EGFR-NON AF GUAMANIAN >60 Normal >=60 [facility] Comment on above: Performed By: #### L IPID, BMP, ALT, TSH ####[facility] [address] [place] [address]Dr. Dwight Mario Glucose [Mass/Vol] 107 mg/dL Critically high 74-106 T [facility] Comment on above: Performed By: #### L IPID, BMP, ALT, TSH ####[facility] [address] [place], [place] [address]Dr. Dwight Mario Potassium [Moles/Vol] 4.0 mmol/L Normal 3.5-5.1 [facility] Comment on above: Performed By: #### L IPID, BMP, ALT, TSH ####[facility] [address] [place], [place] [address]Dr. Dwight Mario Sodium [Moles/Vol] 138 mmol/L Normal 136-145 [facility] Comment on above: Performed By: #### L IPID, BMP, ALT, TSH ####[facility] [address] [place], [place] [address]Dr. Dwight Mario Urea nitrogen [Mass/Vol] 20.0 mg/dL Critically high 7.0-18 .0 [facility] Comment on above: Performed By: #### L IPID, BMP, ALT, TSH ####[facility] [address] [place], [place] [address]Dr. Dwight Mario Urea nitrogen/Creatinine [Mass ratio] 25.0 mg/mg Normal [facility] Comment on above: Performed By: #### L IPID, BMP, ALT, TSH ####[facility] [address] [place], [place] [address]Dr. Dwight Mario SGPTon 01-29-2022 ALT [Catalytic activity/Vol] 26 U/L Normal 14-59 [facility] Comment on above: Performed By: #### L IPID, BMP, ALT, TSH ####[facility] [address] [place], [place] [address]Dr. Dwight Mario TSHon 01-29-2022 TSH 5.901 uIU/mL Critically high 0.358-3.74 0 [facility] Comment on above: Performed By: #### L IPID, BMP, ALT, TSH ####[facility] [address] [place] [id number] Mario XR shoulder LT min 2V*on XR shoulder LT min 2V* [facility] Main [place] [address] [place] [address] XRay Report Signed Patient: Munira [place] MR#: [id number] : 1950 Acct:[id number] Age/Sex: 71 / F ADM Date: 10/10/21 Loc: SOXD Room: Type: [facility] Attending Dr: Espinoza Ruiz MD Copies [...] Abelino Prado M.D.10/10/2021 1:25 PM Dictation Location: [place] [address] Transcribed By: [facility] 10/10/21 1325 Dictated By: Abelino Prado II, MD 10/10/21 1324 Signed By: 10/10/21 1325 [facility] MRI SHOULDER LT WO CONon MRI SHOULDER [...] by: YOVANA COTTRELL Date: 2021-10-03 15:02 Normal [facility] Vital Signs Date Time Vital Sign Value Performing Clinician Facility 12-27-2023 14:40-0400 Body height 157.5 cm Kasey Fallon MD Work Phone: [facility] 12-27-2023 14:40-0400 Body mass index (BMI) [Ratio] 30.36 kg/m2 Kasey Fallon MD Work Phone: [facility] 12-27-2023 14:40-0400 Body temperature 98.29 [degF] Kasey Fallon MD Work Phone: [facility] 12-27-2023 14:40-0400 Body weight 75.3 kg Kasey Fallon MD Work Phone: [facility] 12-27-2023 14:40-0400 Diastolic blood pressure 72 mm[Hg] Kasey Fallon MD Work Phone: [facility] 12-27-2023 14:40-0400 Heart rate 68 /min Kasey Fallon MD Work Phone: [facility] 12-27-2023 14:40-0400 SaO2% (BldA) [Mass fraction] 95 % Kasey Fallon MD Work Phone: [facility] 12-27-2023 14:40-0400 Systolic blood pressure 136 mm[Hg] Kasey Fallon MD Work Phone: [facility] 08-20-2023 15:47-0400 Body height 154.94 cm [facility] 08-20-2023 15:47-0400 Body mass index (BMI) [Ratio] 29.7 kg/m2 [facility] 08-20-2023 15:47-0400 Body temperature 97.5 [degF] [facility] 08-20-2023 15:47-0400 Body weight 71.44 kg [facility] 08-20-2023 15:47-0400 Diastolic blood pressure 77 mm[Hg] [facility] 08-20-2023 15:47-0400 Heart rate 88 /min [facility] 08-20-2023 15:47-0400 Respiratory rate 18 /min [facility] 08-20-2023 15:47-0400 SaO2% (BldA) [Mass fraction] 94 % [facility] 08-20-2023 15:47-0400 Systolic blood pressure 127 mm[Hg] [facility] 08-15-2023 08:14-0400 Blood Pressure Location MetGenrichard Housebitesjerelli [facility] 08-15-2023 08:14-0400 Diastolic blood pressure 75 mm[Hg] Mohamad Antonuchli [facility] 08-15-2023 08:14-0400 Heart rate 80 /min MohPreventlyd Mouchli [facility] 08-15-2023 08:14-0400 Respiratory rate 16 /min MetGend Housebitesuchli [facility] 08-15-2023 08:14-0400 Systolic blood pressure 126 mm[Hg] MetGenrichard Housebitesuchli [facility] 06-21-2023 14:42-0400 Body height 154.94 cm [facility] 06-21-2023 14:42-0400 Body mass index (BMI) [Ratio] 29.3 kg/m2 [facility] 06-21-2023 14:42-0400 Body weight 70.53 kg [facility] 06-21-2023 14:42-0400 Diastolic blood pressure 79 mm[Hg] [facility] 06-21-2023 14:42-0400 Heart rate 81 /min [facility] 06-21-2023 14:42-0400 Respiratory rate 20 /min [facility] 06-21-2023 14:42-0400 SaO2% (BldA) [Mass fraction] 98 % [facility] 06-21-2023 14:42-0400 Systolic blood pressure 138 mm[Hg] [facility] 05-30-2023 08:08-0400 Blood Pressure Location LuciePreventlyrichard Nettles [facility] 05-30-2023 08:08-0400 Diastolic blood pressure 78 mm[Hg] MetGenrichard Housebitessana [facility] 05-30-2023 08:08-0400 Heart rate 80 /min Mohamad Mouchli [facility] 05-30-2023 08:08-0400 Respiratory rate 16 /min Mohamad Mouchli [facility] 05-30-2023 08:08-0400 Systolic blood pressure 126 mm[Hg] Mohamad Mouchli [facility] 05-22-2023 09:15-0500 Diastolic blood pressure 75 mm[Hg] Mohamad Mouchli [facility] 05-22-2023 09:15-0500 Heart rate 62 /min Mohamad Mouchli [facility] 05-22-2023 09:15-0500 Mean blood pressure 87 mm[Hg] Mohamad Mouchli [facility] 05-22-2023 09:15-0500 Respiratory rate 19 /min Mohamad Mouchli [facility] 05-22-2023 09:15-0500 SaO2% (BldA) [Mass fraction] 96 % Mohamad Mouchli [facility] 05-22-2023 09:15-0500 Systolic blood pressure 112 mm[Hg] Mohamad Mouchli [facility] 05-22-2023 09:05-0500 Diastolic blood pressure 71 mm[Hg] Mohamad Mouchli [facility] 05-22-2023 09:05-0500 Heart rate 65 /min Mohamad Mouchli [facility] 05-22-2023 09:05-0500 Mean blood pressure 84 mm[Hg] Mohamad Mouchli [facility] 05-22-2023 09:05-0500 Respiratory rate 10 /min Mohamad Mouchli [facility] 05-22-2023 09:05-0500 SaO2% (BldA) [Mass fraction] 95 % Mohamad Mouchli [facility] 05-22-2023 09:05-0500 Systolic blood pressure 111 mm[Hg] Mohamad Mouchli [facility] 05-22-2023 09:00-0500 Diastolic blood pressure 70 mm[Hg] Mohamad Mouchli [facility] 05-22-2023 09:00-0500 Heart rate 66 /min Mohamad Mouchli [facility] 05-22-2023 09:00-0500 Respiratory rate 15 /min Mohamad Mouchli [facility] 05-22-2023 09:00-0500 SaO2% (BldA) [Mass fraction] 99 % Mohamad Mouchli [facility] 05-22-2023 09:00-0500 Systolic blood pressure 113 mm[Hg] Mohamad Mouchli [facility] 05-22-2023 08:50-0500 Body temperature 97.52 [degF] Mohamad Mouchli [facility] 05-22-2023 08:45-0500 Respiratory rate 24 /min Mohamad Mouchli [facility] 05-22-2023 08:40-0500 Respiratory rate 24 /min Mohamad Mouchli [facility] 05-22-2023 08:35-0500 Respiratory rate 22 /min Mohamad Mouchli [facility] 05-22-2023 07:14-0500 Blood Pressure Location Mohamad Mouchli [facility] 05-22-2023 07:14-0500 Body temperature 97.88 [degF] Mohamad Mouchli [facility] 05-14-2023 12:52-0500 Blood Pressure Location Mohamad Mouchli [facility] 05-14-2023 12:52-0500 Diastolic blood pressure 89 mm[Hg] Mohamad Mouchli [facility] 05-14-2023 12:52-0500 Heart rate 89 /min Mohamad Mouchli [facility] 05-14-2023 12:52-0500 Respiratory rate 16 /min Mohamad Mouchli [facility] 05-14-2023 12:52-0500 Systolic blood pressure 135 mm[Hg] Mohamad Mouchli [facility] 04-16-2023 09:00-0500 Body height 154.94 cm Andrea Ball Other [facility] 04-16-2023 09:00-0500 Body mass index (BMI) [Ratio] 30.12 kg/m2 Andrea Ball Other [facility] Other 04-16-2023 09:00-0500 Body weight 72.3 kg Andrea Ball Other [facility] 04-16-2023 09:00-0500 Diastolic blood pressure 86 mm[Hg] Andrea Ball Other [facility] 04-16-2023 09:00-0500 Respiratory rate 20 /min Andrea Ball Other [facility] Other 04-16-2023 09:00-0500 SaO2% (BldA) [Mass fraction] 95 % Andrea Ball Other [facility] Other 04-16-2023 09:00-0500 Systolic blood pressure 150 mm[Hg] Andrea Ball Other [facility] 02-18-2023 11:45-0500 Body height 154.94 cm Andrea Ball Other [facility] Other 02-18-2023 11:45-0500 Body mass index (BMI) [Ratio] 29.4 kg/m2 Andrea Ball Other [facility] Other 02-18-2023 11:45-0500 Body weight 70.58 kg Andrea Ball Other [facility] Other 02-18-2023 11:45-0500 Diastolic blood pressure 80 mm[Hg] Andrea Ball Other [facility] Other 02-18-2023 11:45-0500 Respiratory rate 12 /min Andrea Ball Other [facility] Other 02-18-2023 11:45-0500 SaO2% (BldA) [Mass fraction] 98 % Andrea Ball Other [facility] Other 02-18-2023 11:45-0500 Systolic blood pressure 148 mm[Hg] Andrea Ball Other [facility] Other 01-25-2023 08:30-0500 Body height 154.94 cm Andrea Ball Other [facility] Other 01-25-2023 08:30-0500 Body mass index (BMI) [Ratio] 29.59 kg/m2 Andrea Ball Other [facility] Other 01-25-2023 08:30-0500 Body weight 71.03 kg Andrea Ball Other [facility] Other 01-25-2023 08:30-0500 Diastolic blood pressure 77 mm[Hg] Andrea Ball Other [facility] Other 01-25-2023 08:30-0500 Respiratory rate 12 /min Andrea Ball Other [facility] Other 01-25-2023 08:30-0500 Systolic blood pressure 118 mm[Hg] Andrea Ball Other [facility] Other 12-12-2022 13:45-0400 Body height 154.94 cm Andrea Ball Other [facility] Other 12-12-2022 13:45-0400 Body mass index (BMI) [Ratio] 29.36 kg/m2 Andrea Ball Other [facility] Other 12-12-2022 13:45-0400 Body weight 70.49 kg Andrea Ball Other [facility] Other 12-12-2022 13:45-0400 Diastolic blood pressure 79 mm[Hg] Andrea Ball Other [facility] Other 12-12-2022 13:45-0400 Respiratory rate 12 /min Andrea Ball Other [facility] Other 12-12-2022 13:45-0400 SaO2% (BldA) [Mass fraction] 98 % Andrea Ball Other [facility] Other 12-12-2022 13:45-0400 Systolic blood pressure 130 mm[Hg] Andrea Ball Other [facility] Other 11-01-2022 15:05-0400 Body height 154.94 cm Shannan Webster Other [facility] Other 11-01-2022 15:05-0400 Body mass index (BMI) [Ratio] 28.34 kg/m2 Shannan Darin Other [facility] Other 11-01-2022 15:05-0400 Body temperature 96.2 [degF] Shannan Webster Other [facility] Other 11-01-2022 15:05-0400 Body weight 68.04 kg Shannan Webster Other [facility] Other 11-01-2022 15:05-0400 Diastolic blood pressure 69 mm[Hg] Shannan Webster Other [facility] Other 11-01-2022 15:05-0400 Respiratory rate 18 /min Shannan Webster Other [facility] Other 11-01-2022 15:05-0400 SaO2% (BldA) [Mass fraction] 99 % Shannan Webster Other [facility] Other 11-01-2022 15:05-0400 Systolic blood pressure 130 mm[Hg] Shannan Webster Other [facility] Other 03-05-2022 15:00-0500 Body height 162.56 cm Luma Chirinos Other [facility] Other 12-01-2021 09:55-0400 Blood Pressure Location Asuncion Lue [facility] 12-01-2021 09:55-0400 Diastolic blood pressure 89 mm[Hg] [facility] 12-01-2021 09:55-0400 Heart rate 81 /min Asuncion Lue [facility] 12-01-2021 09:55-0400 Systolic blood pressure 140 mm[Hg] Asuncion Lue [facility] 10-10-2021 10:15-0400 Body height 162.56 cm Espinoza Loraalbina Other [facility] Other 10-10-2021 10:15-0400 Body mass index (BMI) [Ratio] 24.89 kg/m2 Espinoza Olexa Other [facility] Other 10-10-2021 10:15-0400 Body weight 65.77 kg Espinoza Olexa Other [facility] Other Encounters Encounter Date Encounter Type Care Provider Facility Start: 01-29-2024 End: 01-29-2024 ambulatory MARSHA LAL Not Available Start: 12-30-2023 End: 12-30-2023 Nelia Vasquez MD Work Phone: [facility] Start: 12-30-2023 End: 12-30-2023 Nelia Vasquez MD Work Phone: [facility] Start: 12-30-2023 End: 12-30-2023 Office outpatient visit 15 minutes Charito Vasquez MD Work Phone: [facility] Comment on above: Chronic maxillary si nusitis (Primary Dx); Chronic pansinusitis Start: 12-30-2023 End: 12-30-2023 ambulatory CHARITO VASQUEZ Not Available Start: 12-27-2023 End: 12-27-2023 Patient encounter procedure Kasey Fallon MD Work Phone: Gastroenterology Comment on above: Iron deficiency anem ia due to chronic blood loss (Primary Dx); Abnormal finding on GI tract imaging Start: 12-27-2023 End: 12-27-2023 ambulatory KASEY FALLON Facility:[facility] Start: 12-27-2023 End: 12-27-2023 Lab Drop off Asuncion Buchanan [facility] Start: 12-27-2023 End: 12-27-2023 ambulatory Asuncion Buchanan Facility:[facility] Start: 12-27-2023 End: 12-27-2023 Patient encounter procedure Asuncion Buchanan [facility] Start: 12-25-2023 End: 12-25-2023 Telephone encounter Kasey Fallon MD Work Phone: Gastroenterology Comment on above: Patient Question Start: 12-24-2023 End: 12-24-2023 ambulatory KASEY FALLON Facility:[facility] Start: 12-24-2023 End: 12-24-2023 Subsequent hospital visit by physician [facility] Qb1 (I-Stat) Radiology Comment on above: 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] Start: 12-04-2023 End: 12-04-2023 Telephone encounter Kasey Fallon MD Work Phone: Gastroenterology Comment on above: help rescheduling GI test Start: 11-04-2023 End: 11-04-2023 ambulatory [facility] Start: 10-31-2023 Telephone encounter Kasey abarca MD Work Phone: Gastroenterology Comment on above: Patient Question Other partial intest inal obstruction (HCC) (Primary Dx) Start: 10-16-2023 Telephone encounter [facility] Provider Angle troenterhayley Comment on above: Consult Start: 10-08-2023 End: 10-08-2023 ambulatory LAKIA Najera SANJEEV [facility] Start: 09-23-2023 End: 09-23-2023 ambulatory CHARITO E RAMBASEK Not Available Start: 09-14-2023 End: 09-14-2023 ambulatory OZIEL Ramos [facility] Start: 08-20-2023 End: 08-20-2023 ambulatory [facility] Work Phone: Start: 08-20-2023 End: 08-20-2023 Patient encounter procedure [facility] Physician [facility] Work Phone: Start: 08-15-2023 End: 08-15-2023 ambulatory Del Nettles Facility:[facility] Start: 08-15-2023 End: 08-15-2023 Patient encounter procedure Del Nettles [facility] Start: 08-14-2023 End: 08-14-2023 ambulatory CHARITO E RAMBASEK Not Available Start: 07-31-2023 End: 07-31-2023 ambulatory MARCI H TIMMIS Not Available Start: 07-23-2023 End: 07-23-2023 ambulatory Marci H Timmis Facility:[facility] Start: 07-23-2023 End: 07-23-2023 Patient encounter procedure Marci H Timmis [facility] Start: 07-17-2023 End: 07-17-2023 ambulatory Del Nettles Facility:[facility] Start: 07-17-2023 End: 07-17-2023 Patient encounter procedure Del Nettles [facility] Start: 07-05-2023 End: 07-05-2023 ambulatory Del Nettles Facility:[facility] Start: 07-05-2023 End: 07-05-2023 Patient encounter procedure Del Nettles [facility] Start: 07-04-2023 End: 07-04-2023 ambulatory Del Nettles Facility:[facility] Start: 07-04-2023 End: 07-04-2023 Patient encounter procedure Del Nettles [facility] Start: 07-03-2023 End: 07-03-2023 ambulatory CHARITO E RAMBASEK Not Available Start: 07-02-2023 End: 07-02-2023 ambulatory MARCI ALBERTS Not Available Start: 07-02-2023 Non-patient / Non-visit [facility] Physician [facility] Work Phone: Start: 06-27-2023 Non-patient / Non-visit [facility] Physician [facility] Work Phone: Start: 06-25-2023 ambulatory Del Nettles Faci lity:[facility] Start: 06-21-2023 End: 06-21-2023 ambulatory [facility] Work Phone: Start: 06-21-2023 End: 06-21-2023 Patient encounter procedure [facility] Physician [facility] Work Phone: Start: 05-30-2023 End: 05-30-2023 ambulatory Del Nettles Facility:[facility] Start: 05-30-2023 End: 05-30-2023 Patient encounter procedure Del Nettles [facility] Start: 05-29-2023 End: 05-29-2023 ambulatory CHARITO E RAMBASEK Not Available Start: 05-23-2023 Non-patient / Non-visit [facility] Physician [facility] Work Phone: Start: 05-22-2023 End: 05-22-2023 ambulatory Del Nettles Facility:[facility] Start: 05-22-2023 End: 05-22-2023 Patient encounter procedure Del Nettles [facility] Start: 05-16-2023 End: 05-16-2023 ambulatory CHARITO E RAMBASEK Not Available Start: 05-14-2023 End: 05-14-2023 ambulatory Del Nettles Facility:[facility] Start: 05-14-2023 End: 05-14-2023 Patient encounter procedure Del Nettles [facility] Start: 04-22-2023 Bamboo flowsheet Charito brasher MD Work Phone: [facility] Start: 04-22-2023 Bamboo flowsheet Charito brasher MD Work Phone: [facility] Start: 04-22-2023 Telephone encounter Andrea [place] WALLACE [facility] Start: 04-22-2023 End: 04-22-2023 ambulatory CHARITO E RAMBASEK [facility] Other Start: 04-19-2023 End: 04-19-2023 ambulatory Andrea Golden Other [place] [employer] Other Start: 04-19-2023 Telephone encounter Andrea WALLACE [facility] Start: 04-18-2023 Telephone encounter Andrea Golden M[facility]ISON [facility] Start: 04-18-2023 End: 04-18-2023 ambulatory Andrea Golden Other [place] [employer] Other Start: 04-16-2023 End: 04-16-2023 ambulatory Andrea Golden Other [facility] Other Start: 04-16-2023 Office outpatient vi sit 25 minutes Andrea Golden [facility] Start: 04-16-2023 End: 04-16-2023 Patient encounter procedure [facility]- Start: 04-04-2023 End: 04-04-2023 ambulatory Andrea Golden Other [facility] Other Start: 04-04-2023 Telephone encounter Andrea WALLACE [facility] Start: 03-08-2023 End: 03-08-2023 ambulatory Andrea Golden Other [facility] Other Start: 03-08-2023 Telephone encounter Andrea WALLACE [facility] Start: 03-07-2023 End: 03-07-2023 ambulatory ANA Springer STEFFANIE Not Available Start: 03-06-2023 Telephone encounter Andrea WALLACE [facility] Start: 03-06-2023 End: 03-06-2023 ambulatory MADISONJULIAN BURNS [facility] Other Start: 02-25-2023 End: 02-25-2023 ambulatory Andrea Golden Other [facility] Other Start: 02-25-2023 Telephone encounter Andrea WALLACE [facility] Start: 02-20-2023 End: 02-20-2023 ambulatory Asuncion Buchanan Facility:[facility] Start: 02-20-2023 End: 02-20-2023 Patient encounter procedure Asuncion Buch[facility] Start: 02-18-2023 End: 02-18-2023 ambulatory Andrea Golden Other [facility] Other Start: 02-18-2023 Office outpatient vi sit 15 minutes Andrea Golden [facility] Start: 02-05-2023 End: 02-05-2023 ambulatory Andrea Golden Other [facility] Other Start: 02-05-2023 Telephone encounter Andrea Golden [facility] Start: 01-31-2023 End: 01-31-2023 ambulatory Andrea Golden Other [facility] Other Start: 01-31-2023 Telephone encounter Andrea Golden [facility] Start: 01-29-2023 End: 01-29-2023 ambulatory Andrea Golden Other [facility] Other Start: 01-29-2023 Telephone encounter Andrea Golden [facility] Start: 01-25-2023 End: 01-25-2023 ambulatory Andrea Golden Other [facility] Other Start: 01-25-2023 Patient encounter procedure Andrea Golden [facility] Start: 01-25-2023 Telephone encounter Andrea Golden [facility] Start: 12-12-2022 End: 12-12-2022 ambulatory Andrea Golden Other [facility] Other Start: 12-12-2022 Office outpatient vi sit 15 minutes Andrea Golden [facility] Start: 11-07-2022 End: 11-07-2022 ambulatory Andrea Golden Other [facility] Other Start: 11-07-2022 Telephone encounter Andrea Golden [facility] Start: 11-01-2022 End: 11-01-2022 ambulatory Shannan Webster Other [facility] Other Start: 11-01-2022 Office outpatient vi sit 25 minutes Shannan Webster [facility] Start: 06-27-2022 End: 06-28-[address] JEROME ESPINOSA Facility:[facility] Start: 06-04-2022 End: 06-04-2022 ambulatory Andrea Golden Other [facility] Other Start: 06-04-2022 Telephone encounter Andrea WALLACE [facility] Start: 05-17-2022 End: 05-18-[address] CAMPOS ERAZO Facility:[facility] Start: 04-26-2022 End: 04-27-[address] JEROME ESPINOSA Facility:[facility] Start: 04-25-2022 End: 04-25-2022 ambulatory Andrea Golden Other [facility] Other Start: 04-25-2022 Telephone encounter Andrea WALLACE [facility] Start: 04-10-2022 End: 04-10-2022 ambulatory Andrea Golden Other [facility] Other Start: 04-10-2022 Telephone encounter Andrea WALLACE [facility] Start: 04-07-2022 Encounter for preprocedural cardiovascular examination [facility] Start: 04-07-2022 Encounter for preprocedural laboratory examination [facility] Start: 04-06-2022 End: 04-06-2022 ambulatory Andrea Golden Other [facility] Other Start: 04-06-2022 Telephone encounter Andrea WALLACE [facility] Start: 04-05-2022 End: 04-05-[address] JEROME [...] 03-05-2022 End: 03-05-2022 ambulatory Luma Chirinos Other [facility] Other Start: 03-05-2022 Office outpatient vi sit 15 minutes Luma Chirinos [facility] Start: 01-29-2022 End: 01-30-[address] ANDREA GOLDEN Facility:[facility] Start: 01-18-2022 Adult health examination Shannan Webster Other [facility] Other Start: 12-01-2021 End: 12-01-2021 Patient encounter procedure Asuncion MitchellJose Howardbharati [facility] [facility] Start: 10-10-2021 End: 10-10-2021 ambulatory Espinoza Ruiz Other [facility] Other Start: 10-10-2021 Office outpatient vi sit 25 minutes Espinoza Ruiz [facility] Start: 10-10-2021 End: 10-10-2021 Patient encounter procedure MD Espinoza Ruiz Work Phone: [facility] [place] [facility] Start: 10-05-2021 End: 10-05-2021 ambulatory Espinoza Ruiz Other [facility] Other Start: 10-05-2021 Telephone encounter Espinoza Ruiz [facility] [facility] Start: 10-02-2021 End: 10-03-[address] ANDREA GOLDEN Facility:H1 Procedures Date Procedure Procedure Detail Performing Clinician Start: 12-24-2023 Radiologic exam small int single contrast study Kasey Fallon MD Work Phone: Start: 05-22-2023 Colonoscopy Charito Vasquez MD Work Phone: Start: 05-22-2023 Colonoscopy Del Nettles Start: 05-22-2023 [...] Lue Ligation of fallopian tube K athy Anitae Repair of musculoten dinous cuff of shoulder Asuncion Lue Screening for malign ant neoplasm of breast Shannan Webster Other Screening for malign ant neoplasm of colon Shannan Webster Other Plan of Treatment Date Care Activity Detail Author Start: 05-21-2033 Screening for malignant neoplasm of colon [facility] Start: 09-06-2029 Screening for malignant neoplasm of colon [facility] Start: 04-30-2024 End: 04-30-2024 Patient encounter procedure 04/30/2024 9:20 AM EST Office Visit [facility] [address] [place] [phone] Charito Vasquez MD [address] [place] [address] [facility] Start: 04-08-2024 End: 04-08-2024 Patient encounter procedure 04/08/2024 9:45 AM EST Office Visit [facility] [address] [place] [address] Madison Burns DO [address] [place] [address] [facility] Start: 02-06-2024 Screening for malignant neoplasm of breast [facility]ammogram [facility] Start: 02-05-2024 ambulatory Ambulatory Facility:[facility] Start: 01-29-2024 End: 01-29-2024 Patient encounter procedure 01/29/2024 8:15 AM EST Office Visit [facility] [address] [place] [phone] Marsha Lal DO [address] [place] [address] [facility] Start: 01-20-2024 End: 01-20-2024 Patient encounter procedure 01/20/2024 8:15 AM EST Office Visit [facility] [address] [place] [phone] Marsha Lal DO [address] [place] [address] [facility] Start: 12-30-2023 End: 12-30-2023 Patient encounter procedure 12/30/2023 9:20 AM EDT Office Visit [facility] [address] [place] [address] Charito Vasquez MD [address] [address] Arrived [facility] Comment on above: Arrived Start: 12-27-2023 End: 12-27-2023 Patient encounter procedure 12/27/2023 4:30 PM EDT Office Visit Gastroenterology [address] [phone] Kasey Fallon MD [facility] [address] [phone] New Patient consult 30min- [facility] Comment on above: New Patient consult 30min- Double Balloo n Start: 12-27-2023 End: 12-27-2023 Patient encounter procedure 12/27/2023 9:40 AM EDT Appointment Radiology [address] [id number] 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] Radiology Comment on above: Other partial intestinal obstruction (HC C) [K56.690] Start: 11-17-2023 Covid-19 Vaccine ( season) Covid-19 Vaccine ( season) [facility] Start: 11-17-2023 Covid-19 Vaccine ( season) Covid-19 Vaccine ( season) [facility] Start: 11-17-2023 Influenza vaccination Influenza Vaccine (#1) [facility] Start: 10-31-2023 End: 01-30-2024 CREATININE BLD CREATININE BLD Lab Routine Other partial intestinal obstruction (HCC) Expected: 10/31/2023, Expires: 01/30/2024 [facility] Comment on above: Expected: 10/31/2023, Expires: Start: 04-22-2023 End: 04-22-2023 Patient encounter procedure 04/22/2023 11:00 AM EST Office Visit [facility] [address] [phone] Charito Vasquez MD [address] [place] [address] Arrived [facility] Comment on above: Arrived Start: 03-18-2023 Advance Directive Discussion Advance Directive Discussion [facility] Start: 02-02-2023 Screening for malignant neoplasm of breast Mammogram Screening [facility] Start: 11-16-2022 Covid-19 Vaccine ( season) Covid-19 Vaccine ( season) [facility] Start: 2012 RSV Vaccine (1 - 1-dose 60+ series) RSV Vaccine (1 - 1-dose 60+ series) [facility] Start: 2002 Shingrix Vaccine (1 of 2) Shingrix Vaccine (1 of 2) [facility] Start: 1997 Diabetes Screening Diabetes Screening [facility] Start: 1997 Lipid panel Lipid Screening [facility] Start: 1997 Screening for malignant neoplasm of colon [facility] Start: 07-27-1971 Urine microalbumin profile DTaP,Tdap,Td Vaccine (1 - Tdap) [facility] Start: 1970 Anxiety Screening Anxiety Screening [facility] Start: 1970 Depression Screening Depression Screening [facility] Start: 1970 Hepatitis C screening Hepatitis C Screening [facility] Start: 1952 Screening for malignant neoplasm of colon [facility]: 11-29-2024 CT Small bowel W contrast PO and W contrast IV CT ENTEROGRAPHY W IVCON Radiology Routine Other partial intestinal obstruction (HCC) 1 Occurrences starting 10/31/2023 until 11/29/2024 [facility] Work Phone: Comment on above: 1 Occurrences starting 10/31/2023 until 11/29/2024 End: 12-26-2024 ENTEROSCOPY ENTEROSCOPY Endoscopy Routine Iron deficiency anemia due to chronic blood loss Abnormal finding on GI tract imaging 1 Occurrences starting 12/27/2023 until 12/26/2024 [facility] Work Phone: Comment on above: 1 Occurrences starting 12/27/2023 until 12/26/2024 Immunizations Immunization Date Immunization Notes Care Provider Fa serge 12-31-2022 Flu Shot - Documentation Purposes Only Andrea Golden Other [facility] 12-31-2022 influenza virus vaccine, unspecified formulation Asuncion Buchanan [facility] 12-31-2022 respiratory syncytia l virus (RSV) vaccine, adjuvanted (AREXVY) Kasey Fallon MD Work Phone: [facility] 12-22-2021 SARS-CoV-2 (COVID-19 ) [id number] Asuncion Buchanan [facility] 12-18-2021 influenza (HD-IIV4) vaccine, age 65+ yr, high dose, quadrivalent, PF (FLUZONE HIGH-DOSE) Kasey Fallon MD Work Phone: [facility] 12-18-2021 influenza virus vaccine, split virus (incl. purified surface antigen) Shannan Webster Other [facility] Other 12-18-2021 influenza virus vaccine, unspecified formulation Asuncion Buchanan [facility] 07-04-2021 SARS-CoV-2 (COVID-19 ) mRNA-1273 vaccine Asuncion Buchanan [facility] 01-23-2021 SARS-CoV-2 (COVID-19 ) mRNA-1273 vaccine Asunicon Lue [facility] 11-23-2020 influenza (aIIV4) vaccine, age 65+ yr, quadrivalent, PF (FLUAD QUAD) Kasey Fallon MD Work Phone: [facility] 11-23-2020 influenza virus vaccine, split virus (incl. purified surface antigen) Shannan Webster Other [facility] Other 11-23-2020 influenza virus vaccine, unspecified formulation Asuncion Lue [facility] 06-02-2020 SARS-CoV-2 (COVID-19 ) mRNA-1273 vaccine Asuncion Lue [facility] 05-05-2020 SARS-CoV-2 (COVID-19 ) mRNA-1273 vaccine Asuncion Lue [facility] 03-18-2020 SARS-CoV-2 (COVID-19 ) mRNA-1273 vaccine Asuncion Lue [facility] Comment on above: Result Comment: 3 sh ots to date 12-07-2019 influenza virus vaccine, split virus (incl. purified surface antigen) Shannan Webster Other [facility] Other 12-07-2019 influenza virus vaccine, unspecified formulation Asuncion Lue [facility] 12-07-2019 influenza, injectabl e, quadrivalent, preservative free Kasey Fallon MD Work Phone: [facility] 01-05-2019 influenza virus vaccine, unspecified formulation Asuncion Lue [facility] 01-05-2019 Influenza, injectabl e, Madin Judi Canine Kidney, preservative free, quadrivalent Kasey Fallon MD Work Phone: [facility] 01-05-2019 pneumococcal polysaccharide vaccine, 23 valent Asuncion Lue [facility] 12-17-2018 influenza virus vaccine, unspecified formulation Asuncion Lue [facility] 12-19-2017 influenza virus vaccine, unspecified formulation Asuncion Lue [facility] 12-19-2017 Seasonal trivalent influenza vaccine, adjuvanted, preservative free Kasey Fallon MD Work Phone: [facility] 01-10-2017 influenza virus vaccine, split virus (incl. purified surface antigen) Shannan Webster Other [facility] Other 01-10-2017 influenza virus vaccine, unspecified formulation Asuncion Lue [facility] 01-10-2017 influenza, injectabl e, quadrivalent, preservative free Kasey Fallon MD Work Phone: [facility] 01-10-2017 pneumococcal conjuga te vaccine, 13 valent Asuncion Lubharati [facility] 01-04-2016 influenza virus vaccine, unspecified formulation Asuncion Lue [facility] 01-04-2016 influenza, seasonal, injectable, preservative free Kasey Fallon MD Work Phone: [facility] 01-04-2016 pneumococcal polysaccharide vaccine, 23 valent Asuncion Lue [facility] Payers Date Payer Category Payer Private Health Insurance [employer] [id number] 2018 Unknown [id number]. [id number] 2017 Medicare [id number] [id number]. [id number] 1959 Medicare [id number] 2.16.840.1.839852.19 1959 Unknown [id number] 2.16.840.1.115768.19 1952 Unknown [id number] 2.16.840.1.976934.3.579.2. 593 1952 Unknown [id number] 2.16.840.1.510188.3.579.2. 593 1952 Unknown [id number] 2.16.840.1.840991.3.579.2. 593 1952 Unknown [id number] 2.16.840.1.678389.3.579.2. 593 1952 Unknown [id number] 2.16.840.1.067968.3.579.2. 593 1952 Unknown [id number] 2.16.840.1.827623.3.579.2. 593 1952 Unknown [id number] 2.16.840.1.317602.3.579.2. 593 1952 Unknown [id number] 2.16.840.1.843498.3.579.2. 593 1952 Unknown [id number] 2.16.840.1.941126.3.579.2. 593 1952 Unknown [id number] 2.16.840.1.223291.3.579.2. 593 1952 Unknown [id number] 2.16.840.1.820254.3.579.2. 1244 1952 Unknown [id number] 2.16.840.1.826524.3.579.2. 1244 1952 Unknown [id number] 2.16.840.1.249645.3.579.2. 1242 1952 Unknown [id number] 2.16.840.1.846113.3.579.2. 1952 Unknown [id number] 2.16.840.1.681542.3.579.2. 1952 Unknown [id number] 2.16.840.1.680471.3.579.2. 1952 Unknown [id number] 2.16.840.1.203115.3.579.2 1952 Unknown [id number] 2.16.840.1.825067.3.579.2. 1952 Unknown [id number] 2.16.840.1.881849.3.579.2 1952 Unknown [id number] 2.16.840.1.467655.3.579.2 1952 Unknown [id number] 2.16.840.1.168638.3.579.2 1952 Unknown [id number] 2.16.840.1.202507.3.579.2. 1952 Unknown [id number] 2.16.840.1.602956.3.579.2 1952 Unknown [id number] 2.16.840.1.889059.3.579.2 1952 Unknown [id number] 2.16.840.1.308275.3.579.2 1952 Unknown [id number] 2.16.840.1.682547.3.579.2 1952 Unknown [id number] 2.16.840.1.666438.3.579.2. 9 1952 Unknown [id number] 2.16.840.1.357899.3.579.2. 1258 1952 Unknown [id number] 2.16.840.1.956736.3.579.2. 1258 1952 Unknown [id number] 2.16.840.1.269318.3.579.2. 1258 1952 Unknown [id number] 2.16.840.1.034514.3.579.2. 1258 1952 Unknown [id number] 2.16.840.1.784907.3.579.2. 1258 1952 Unknown [id number] 2.16.840.1.185932.3.579.2. 1258 1952 Unknown [id number] 2.16.840.1.762138.3.579.2. 1258 1952 Unknown [id number] 2.16.840.1.246316.3.579.2. 1258 1952 Unknown [id number] 2.16.840.1.570014.3.579.2. 1258 1952 Unknown [id number] 2.16.840.1.092613.3.579.2. 1258 1952 Unknown [id number] 2.16.840.1.049144.3.579.2. 1259 Self-pay Self Pay [id number] Unknown [place] BC/BS [id number] Social History Date Type Detail Facility Unknown if ever smoked [facility] Other Start: 03-07-2023 End: 12-30-2023 Sex Assigned At [facility] Other Start: 11-11-2018 End: 03-07-2023 Tobacco smoking status NHIS Never smoked tobacco (finding) [facility] Start: 1950 Sex Assigned At Female F [facility] Tobacco smoking status Never [facility] Start: 03-07-2023 End: 12-27-2023 Tobacco use and exposure Smokeless tobacco non-user [facility] Start: 03-07-2023 End: 12-30-2023 Alcohol intake Lifetime non-drinker (finding) [facility] Start: 03-07-2023 End: 12-30-2023 History of Social function [facility] Start: 03-05-2023 Alcohol Comment Caffeine : soda [facility] Start: 08-28-2022 Gender identity Identifies as female gender (finding) [facility] Start: 12-08-2007 End: 12-27-2023 Alcohol intake Current non-drinker of alcohol (finding) [facility] Start: 1950 Sex Assigned At Not on file [facility] Medical Equipment Procedure Code Equipment Code Equipment Origin al Text Equipment Identifier Dates Arthroscopy, shoulder ANCHOR SUTURE FT III [id number] FDA Start: 11-11-2018 Arthroscopy, shoulder ANCHOR SUTURE FT III 5.5X16.3M FDA Start: 11-11-2018 Arthroscopy, shoulder ANCHOR SUTURE FT III 5.5X16.3M FDA Start: 11-11-2018 Arthroscopy, shoulder ANCHOR SUTURE FT III 5.5X16.3M FDA Start: 11-11-2018 Functional Status Date Assessment Result Facility 08-15-2023 Functional Status N/A [facility] 05-30-2023 Functional Status N/A [facility] 05-22-2023 Functional Status N/A [facility] 05-14-2023 Functional Status N/A [facility] 02-20-2023 Functional Status N/A [facility] 12-01-2021 Functional Status N/A [facility] [place] Clinical Notes 10-10-2021 to 12-30-2023 Charito Vasqeuz MD - 12/30/2023 9:20 AM EDTPKasey Baires MD - 12/27/2023 4:30 PM EDTTelephone Encounter - Hollis Mckeon RN - 12/25/2023 2:56 PM EDT Note Date & Type Note Facility 12-30-2023 History of Present illness Narrative Munira Chester returns to the office today and notes that the cough is mostly gone. She feels the Xhance has been the best therapy for her cough. She saw Dr. Maher and was told that Xhance was a good choice for her. She was also sent to a speech pathologist and treated for vocal cord dysfunction which has been helpful as well. She also feels that sinus lavage has been helpful for her symptoms. EXAM The patient appears comfortable in the office today. Lungs are clear to auscultation bilaterally. The oral mucosa is pink and healthy without any lesions or ulcers. The palate elevates in the midline. The nasal mucosa is pink and healthy. There is no epistaxis mucopus or nasal polyposis noted. The nasal septum is approximately in the midline. The skin is clear of any lesions, excoriations, or erythema. IMPRESSION: CRS - continue Xhance lavage and try and send to [facility]. Follow-up in 4 months. Discuss simons again at that time to see if [facility] pharmacy has been less expensive for her Xhance. documented in this encounter [facility] 12-27-2023 Instructions Kasey Fallon MD - 12/27/2023 9:17 PM EDT RECTAL DOUBLE BALLOON OR COLONOSCOPY BOWEL PREPARATION INSTRUCTIONS GOLYTELY/NULYTELY/TRILYTE/COLYTE Your doctor has scheduled you for a colonoscopy. To have a successful colonoscopy, you must have a clean colon, that is empty. A clean colon allows your doctor to see the entire colon & diagnose issues like polyps or cancer. For doctors, a clean colon is like driving on a maikel day; a dirty colon like driving in a storm. It is very important that you follow these instructions exactly, or your colonoscopy might not be as effective, could be canceled, and you may need to do the bowel prep and the colonoscopy again. TRANSPORTATION REQUIREMENTS You are receiving IV sedation. For your safety, a responsible adult escort must accompany you to and from your procedure: Your adult escort MUST be present with you at check-in for your colonoscopy. Your adult escort MUST remain in the endoscopy area until you are discharged. Your adult escort MUST transport you home once you are discharged. You are NOT allowed to operate any form of transportation (i.e. drive a car, bicycle, etc.) or leave the Endoscopy Center ALONE. It is not safe to do so. If you cannot meet these requirements, your procedure will be canceled. MEDICATION REQUIREMENTS For your safety, certain medications will need to be stopped or adjusted before you can have your procedure: BLOOD THINNERS: If you take blood thinners, such as Coumadin (warfarin), Plavix (clopidogrel), Ticlid (ticlopidine hydrochloride), Agrylin (anagrelide), Xarelto (Rivaroxaban), Pradaxa (Dabigatran), Eliquis (Apixaban), or Effient (Prasugrel), contact the physician who is prescribing these medications at least 2 weeks prior to your procedure to discuss any necessary adjustments. DIABETES: If you take medications for diabetes, your dosage may need to be adjusted. If you are being treated for diabetes with insulin, diabetic pills, or other injectable medications do not take your REGULAR dose after midnight on the day of your procedure. If you are taking any other types of insulin such as Lantus, Humalog, NPH (long-acting insulin), or 70/30 insulin, take half your normal dose the day before your procedure. DIABETES/WEIGHT MANAGEMENT: If you take medications for weight-loss, your dosage may need to be adjusted Contact the doctor who prescribes this medication for further instructions. If you take medications for weight-loss like semaglutide (Ozempic, Wegovy, Rybelsus), dulaglutide (Trulicity), liraglutide (Victoza, Saxenda), exenatide (Byetta, Bydureon), or lixisenatide (Adylyxin), stop your medication 1 week prior to your procedure. If you take medications like canagliflozin (Invokana), dapagliflozin (Farxiga, Forxiga), empagliflozin (Jardiance), stop your medication 3 days prior to your procedure. If you take ertugliflozin (Steglatro) stop your medication 4 days prior to your procedure. IRON: If you take iron pills, STOP them 1 week BEFORE your procedure, may resume after. OTHER MEDS: May take all other medications (including aspirin, antibiotics, water pills / diuretics like Lasix or Metolozone, blood pressure meds, etc.) at their usual scheduled time with a sip of water. DIET REQUIREMENTS The day before your rectal double balloon or colonoscopy, you may have a clear liquid diet (see below). The day of your rectal double balloon or colonoscopy, you may continue a clear liquid diet until 3 hours before your colonoscopy. Within 3 hours of your colonoscopy, take only any medications (as above) with a sip of water. Clear Liquid Diet Broth (chicken, beef or vegetable broth or bullion. Just the broth, no solids). Water Coffee or Tea (NO milk or creamer), but sugar and sugar substitutes are allowed. Clear liquids including clear, yellow, green, blue (NO red, NO orange, NO purple) Sodas / soft drinks Gatorade or other sports drinks Elmer-Aid or flavored drinks Plain Jell-O or other gelatins Fruit juice (strained; no-pulp) Popsicles or hard candy BOWEL PREPARATION (GOLYTELY/NULYTELY/TRILYTE/COLYTE ) Split Dosing Bowel Prep: This means drinking your bowel prep in two doses. Split dosing helps clean your colon better and makes it less likely that your procedure will be canceled. Fill your prescription for Golytely/Nulytely/Trilyte/Colyte: The afternoon before your colonoscopy, mix the solution and refrigerate. You may add the flavor pack (if present) that came with the bowel preparation. Do not add ice, sugar, or other flavorings to the solution. You will drink your prep in two doses, by several hours. During the day before your rectal double balloon or colonoscopy: Clear liquid diet all day Take 20mg (4 tabs) Dulcolax in the morning On the evening before your rectal double balloon or colonoscopy: 1. 6 PM drink the first half of the bowel preparation solution. Drink one 8-ounce glass every 15 minutes. 2. Six hours before your colonoscopy, drink the second half of the solution. Drink one 8-ounce glass every 15 minutes. 3. You may continue a clear liquid diet until 3 hours before your colonoscopy. Bowel prep can work differently from person to person. Some people's bowels move slowly and they may need different instructions. Please see your doctor in office or virtually for personalized bowel prep instructions if you have: Medical condition that needs special accommodations Had a poor bowel prep results or failed bowel prep attempts in the past. Had difficulty with anesthesia during the procedure. FREQUENTLY ASKED QUESTIONS Q: What if I suffer from constipation? A: Recommend taking extra laxatives to resolve your constipation days prior to entering the bowel prep day. Q: What if have had prior poor preps results in past? A: Contact your physician as you will likely need additional bowel prep instructions. Q: What if I have motility issues like Parkinson's, MS (multiple sclerosis), wheelchair dependent, etc.? or on medications that slow bowel emptying (narcotics, gabapentin, anticholinergic medications etc.) A: Contact your physician as you will likely need extra time and additional laxatives to complete your bowel prep. Q: What if I cannot drink large volume of liquid? A: Start your prep 2-3 hours earlier to allow yourself more time to complete the entire prep. Q: What if I can't finish my bowel prep? A: If you cannot finish your entire bowel prep, it is likely that your colonoscopy will need to be rescheduled due to poor prep quality. Q: What if I had bariatric surgery? Do I still have to complete the entire prep? A: Yes, gastric bypass surgery involves the stomach & small bowel. You may need to drink smaller amounts, slower (may need more time to complete your bowel prep). Gastric bypass does not alter the length of your colon so you will need to complete the entire bowel prep, it may just take longer time to complete it. Q: What if I am on dialysis? A: Please consult your superintendent commissary prior to scheduling to get instructions pertinent to you. In general, dialysis patients take the Gameriusly bowel prep and have the procedure same day of their dialysis (colonoscopy in AM, dialysis in PM). Q: How do I know if something is considered as clear liquid diet? A: If you can pour it in a glass and you can see through it, it is considered clear liquid Q: Can I eat nuts, seeds, beans, popcorn, dried fruits, vegetables & fruits that have skin peel? A: No, you will need to not eat these items starting 3 days prior to procedure. Q: Can I take Uber/Lyft/taxi/bus home? A: An adult MUST be present with you at check-in for your colonoscopy and remain in the endoscopy area until you are discharged. You can take Uber home only if this adult escort is with you at check in, remain in the endoscopy area until you are discharged, and takes the Uber with you to home. Q: Can I sleep it off here and drive myself home? A: No, you must have an adult with you at time of procedure check in, remain in the endoscopy center during your procedure, and drive you home. You cannot drive a vehicle after your procedure the rest of the day. documented in this encounter [facility] 12-27-2023 History of Present illness Narrative SMALL BOWEL DISEASES AND NUTRITION NEW ENCOUNTER Date of direct communication: 12/27/23 Assessment IMPRESSION: Munira Chester is a 73 year old female with longstanding NSAID dependence complicated by upper GI ulcers and iron deficiency anemia. She has ileal strictures which are most likely diaphragm strictures and small bowel series shows delayed small bowel transit through the distal ileum. Malignancy is highly unlikely given chronicity and lack of significant findings on small bowel series. She has not had symptoms of overt bleeding or obstruction. DIAGNOSTIC ISSUES AND PLAN: #) Iron deficiency anemia #) Small bowel strictures -Almost surely diaphragm strictures from chronic, longstanding NSAID use and bland appearance on small bowel series this week -Avoid NSAIDs -Continue iron replacement -Will plan for elective rectal double balloon enteroscopy to exclude other pathology. Discussed that the procedure would be more urgent should she develop obstruction symptoms, overt bleeding, worsening anemia in spite of iron replacement. #) Migraine headaches #) NSAID dependence -Acetaminophen, caffeine are partly effective -She has not had a durable therapy after seeing multiple headache specialists -NSAIDs are optimal but we discussed trying to cut down FOLLOW-UP: at the time of rectal double balloon enteroscopy Kasey Fallon MD 12/27/2023 [facility] , REFERRING PROVIDER: Jones Ace [address] [place] [address] REASON FOR REFERRAL: Small bowel stricture HISTORY: -Remote hx of bleeding upper GI ulcer that was attributed to aspirin (takes for chronic migraines) -Started out with a chronic cough and then had further evaluations (cough turned out to be post nasal drip and asthma) -Hx of iron def anemia, GERD, diverticulosis -EGD & colonoscopy non-diagnsotic for GI blood loss -Capsule study with small bowel diverticula and stricture about 5 hours into the study --> capsule was retained in this area but eventually passed -Generally speaking, feels well from a GI perspective -Takes Protonix which works for GERD, minimal breakthru -Avoids spicy food, but otherwise no restrictions -BM's 1-2 per week. Stools tend to be formed. No diarrhea. -No abdo pain. Some bloating with large meals or if she eats a lot of cheese. -Small bowel series with very slow transit through the distal small bowel -Daily aspirin/tylenol/caffeine for migraines. -Caffeine restriction and would get withdrawal pain. Had norgesic forte but it was taken off the market. -Recent labs with mild iron def anemia --> started oral iron supplements -Had blood transfusion with ulcer bleed, but none since. Required 2x iron infusions. Antiplatelet/NSAID: aspirin Anticoagulation: none Prior abdominal surgery: gallbladder, C section, tubal ligation Weight history: Last Wt No data found for Wt Current Outpatient Medications Medication Sig fluticasone-vilanterol (BREO ELLIPTA) 100-25 mcg/dose inhaler Inhale 1 Inhalation as instructed once daily. Opdxgsxgvf-Pgvrnfbenmdee-Mioi (FIORICET) 50-300-40 mg cap Take by mouth. EPINEPHrine (EPIPEN) 0.3 mg/0.3 mL auto-injector Inject 0.3 mg intramuscularly as needed. fluticasone (FLONASE) 50 mcg/actuation nasal spray Use 1 Donovan in each nostril once daily. atorvastatin (LIPITOR) 10 mg tablet Take 10 mg by mouth once daily. benazepril (LOTENSIN) 10 mg tablet Take 10 mg by mouth once daily. albuterol HFA (PROAIR HFA) 90 mcg/actuation inhaler Inhale 2 Puffs as instructed. montelukast (SINGULAIR) 10 mg tablet Take 10 mg by mouth daily at bedtime. cycloSPORINE (RESTASIS) 0.05 % ophthalmic emulsion 1 Drop twice daily. fluconazole (DIFLUCAN) 150 mg tablet Take 150 mg by mouth one time only. alendronate (FOSAMAX) 70 mg tablet Take 70 mg by mouth once each week. metroNIDAZOLE (METROGEL) 0.75 % Vaginal Gel Use 1 Applicatorful vaginally daily at bedtime. Estradiol (VAGIFEM) 10 mcg tab vaginal tablet Use 10 mcg vaginally once daily. orphenadrine ER (NORFLEX) 100 mg tablet Two tablets daily as needed levothyroxine sodium(SYNTHROID 100 MCG TAB) Take one(1) tablet daily. No current facility-administered medications for this visit. ALLERGIES Allergen Reactions Contrast Dye Sulfa (Sulfonamide * PAST MEDICAL HISTORY Diagnosis Date CERVICAL DISC DEGEN ESOPHAGEAL REFLUX HYPERTENSION NOS MIGRAINE NEC TOX DIF GOITER NO CRISIS ULCERATIVE COLITIS NOS Asthma Arthritis Cataracts Graves disease --> hypothyroidism Gastric ulcer Dyslipidemia Osteopenia Colon polyps Lumber spondylosis Migraine headaches Surgical History: S/p laparoscopic cholecystectomy C section Tubal ligation Rotator cuff repair Social History Tobacco Use Smoking status: Never Substance Use Topics Alcohol use: No Family Hx: Mom - 55 pancreatic cancer Dad - 40's pneumonia No known IBD or celiac REVIEW OF SYSTEMS: Complete ROS performed and negative outside of the systems documented in the HPI. INVESTIGATIONS: All available pertinent interval investigations were reviewed and were notable for: Labs 11-22-2023: WBC 7.1, Hgb 12.8, MCV 91., plt 350 BMP normal Iron 71, TIBC 365, 19.5% sat'n, ferritin 30 Hepatic panel normal Small bowel series 12-24-2023: IMPRESSION: Slow transit. No dilated small bowel. No visualized stricture. RESULT: Advisory Services Associate radiograph shows no dilated bowel loops. Right upper quadrant surgical clips. Contrast was ingested orally. By 60 minutes, contrast fills normal caliber and fold pattern jejunum and proximal and mid ileum. Subsequently there was very slow transit. Study was terminated at 240 minutes with small amount of contrast in colon. No small bowel dilation or focal area of narrowing identified. Small bowel capsule endoscopy 07-17-2023: 1st gastric 00:32 1st duodenal 1:33:34 1st cecum not reached Findings: 2 small tics in the proximal-mid ileum, benign stricture in the mid-proximal ileum that the capsule could not pass. Stricture appears to be reached around the 5 hours into the study. EGD : Small hiatal hernia Mild gastric erythema Colonoscopy : Diverticulosis Internal hemorrhoids Normal TI Labs : Hgb 9.5, Ferritin 14 PHYSICAL EXAM: BP 136/72 Pulse 68 Temp 36.8 C (98.3 F) (Temporal) Ht 157.5 cm (5' 2 ) Wt 75.3 kg (166 lb) SpO2 95% BMI 30.36 kg/m Body mass index is 30.36 kg/m . Constitutional: Healthy and well developed HEENT: No icterus Neck: No lymphadenopathy. Resp: Normal resp effort. CVS: PPP bilat. Abdo: Non-distended, soft, non-tender, no masses. ISI: Not done. Extr: Good muscle bulk and subQ fat reserves. No edema. Skin: Warm and dry. No rash. Neuro: A&O, normal gait. Psych: Normal affect and memory. Total time of this patient encounter today was >45 mins, including: preparation for visit, direct time with the patient, examination, orders, review of records, and documentation. documented in this encounter [facility] 12-27-2023 Note HNO ID: [id number] Author: KASEY FALLON MD Service: ? Author Type: Physician Type: Progress Notes Filed: 12/27/2023 21:01 Note Text: SMALL BOWEL DISEASES AND NUTRITION NEW ENCOUNTER Date of direct communication: 12/27/23 Assessment IMPRESSION: Munira Chester is a 73 year old female with longstanding NSAID dependence complicated by upper GI ulcers and iron deficiency anemia. She has ileal strictures which are most likely diaphragm strictures and small bowel series shows delayed small bowel transit through the distal ileum. Malignancy is highly unlikely given chronicity and lack of significant findings on small bowel series. She has not had symptoms of overt bleeding or obstruction. DIAGNOSTIC ISSUES AND PLAN: #) Iron deficiency anemia #) Small bowel strictures -Almost surely diaphragm strictures from chronic, longstanding NSAID use and bland appearance on small bowel series this week -Avoid NSAIDs -Continue iron replacement -Will plan for elective rectal double balloon enteroscopy to exclude other pathology. Discussed that the procedure would be more urgent should she develop obstruction symptoms, overt bleeding, worsening anemia in spite of iron replacement. #) Migraine headaches #) NSAID dependence -Acetaminophen, caffeine are partly effective -She has not had a durable therapy after seeing multiple headache specialists -NSAIDs are optimal but we discussed trying to cut down FOLLOW-UP: at the time of rectal double balloon enteroscopy Kasey Fallon MD 12/27/2023 [facility] , REFERRING PROVIDER: Jones Ace [address] [facility] [address] REASON FOR REFERRAL: Small bowel stricture HISTORY: -Remote hx of bleeding upper GI ulcer that was attributed to aspirin (takes for chronic migraines) -Started out with a chronic cough and then had further evaluations (cough turned out to be post nasal drip and asthma) -Hx of iron def anemia, GERD, diverticulosis -EGD AND colonoscopy non-diagnsotic for GI blood loss -Capsule study with small bowel diverticula and stricture about 5 hours into the study --> capsule was retained in this area but eventually passed -Generally speaking, feels well from a GI perspective -Takes Protonix which works for GERD, minimal breakthru -Avoids spicy food, but otherwise no restrictions -BM's 1-2 per week. Stools tend to be formed. No diarrhea. -No abdo pain. Some bloating with large meals or if she eats a lot of cheese. -Small bowel series with very slow transit through the distal small bowel -Daily aspirin/tylenol/caffeine for migraines. -Caffeine restriction and would get withdrawal pain. Had norgesic forte but it was taken off the market. -Recent labs with mild iron def anemia --> started oral iron supplements -Had blood transfusion with ulcer bleed, but none since. Required 2x iron infusions. Antiplatelet/NSAID: aspirin Anticoagulation: none Prior abdominal surgery: gallbladder, C section, tubal ligation Weight history: Last Wt No data found for Wt Current Outpatient Medications Medication Sig fluticasone-vilanterol (BREO ELLIPTA) 100-25 mcg/dose inhaler Inhale 1 Inhalation as instructed once daily. Wkazrizzql-Vsvfgazvecgxi-Nsrj (FIORICET) 50-300-40 mg cap Take by mouth. EPINEPHrine (EPIPEN) 0.3 mg/0.3 mL auto-injector Inject 0.3 mg intramuscularly as needed. fluticasone (FLONASE) 50 mcg/actuation nasal spray Use 1 Donovan in each nostril once daily. atorvastatin (LIPITOR) 10 mg tablet Take 10 mg by mouth once daily. benazepril (LOTENSIN) 10 mg tablet Take 10 mg by mouth once daily. albuterol HFA (PROAIR HFA) 90 mcg/actuation inhaler Inhale 2 Puffs as instructed. montelukast (SINGULAIR) 10 mg tablet Take 10 mg by mouth daily at bedtime. cycloSPORINE (RESTASIS) 0.05 % ophthalmic emulsion 1 Drop twice daily. fluconazole (DIFLUCAN) 150 mg tablet Take 150 mg by mouth one time only. alendronate (FOSAMAX) 70 mg tablet Take 70 mg by mouth once each week. metroNIDAZOLE (METROGEL) 0.75 % Vaginal Gel Use 1 Applicatorful vaginally daily at bedtime. Estradiol (VAGIFEM) 10 mcg tab vaginal tablet Use 10 mcg vaginally once daily. orphenadrine ER (NORFLEX) 100 mg tablet Two tablets daily as needed levothyroxine sodium(SYNTHROID 100 MCG TAB) Take one(1) tablet daily. No current facility-administered medications for this visit. ALLERGIES Allergen Reactions Contrast Dye Sulfa (Sulfonamide * PAST MEDICAL HISTORY Diagnosis Date CERVICAL DISC DEGEN ESOPHAGEAL REFLUX HYPERTENSION NOS MIGRAINE NEC TOX DIF GOITER NO CRISIS ULCERATIVE COLITIS NOS Asthma Arthritis Cataracts Graves disease --> hypothyroidism Gastric ulcer Dyslipidemia Osteopenia Colon polyps Lumber spondylosis Migraine headaches Surgical History: S/p laparoscopic cholecystectomy (more content not included)... [facility] 12-25-2023 Telephone encounter Note Pt called and left VM, said had small bowel xray done, saw results and now questioning if still needs appt with Dr. Fallon, scheduled for 12/26, asking for return call to clarify if still needs to come or can cx. Call cell phone at [phone]. Hollis Mckeon, RN [facility] 12-25-2023 Miscellaneous Notes Pt called and left VM, said had small bowel xray done, saw results and now questioning if still needs appt with Dr. Fallon, scheduled for 12/26, asking for return call to clarify if still needs to come or can cx. Call cell phone at [phone]. Hollis Mckeon, RN documented in this encounter [facility] 12-24-2023 History of Present illness Narrative Radiology Service Progress Note PATIENT NAME: Munira Chester DATE OF SERVICE: December 24, 2023 TIME: 2:19 PM PATIENT IDENTITY VERIFICATION COMPLETED USING TWO (2) IDENTIFIERS: Name and Date of confirmed by patient verbally. FALL SCREENING: Has the patient had 2 falls in the last year or 1 fall with injury or currently using an Ambulatory Assistive Device (Walker, Cane, Wheelchair, Crutches, etc.)? No PATIENT GENDER DATA: Female. status: : No status: N/A PATIENT RELEVANT IMPLANT DATA REVIEWED: Yes PATIENT PRESENTS WITH AN IMPLANTABLE OR ATTACHED ACID PATROLLER: No RADIOLOGY DEPARTMENT: General X-ray: Exam(s) Completed: GI/ Procedure(s): Small bowel series with barium contrast PERIPHERAL IV DATA: Not applicable SIGNED BY: RT Adair(Peterson) December 24, 2023 2:19 PM documented in this encounter [facility] 12-24-2023 Note HNO ID: [id number] Author: MARY JIMENEZ RT(R) Service: Radiology Author Type: Technologist Type: Progress Notes Filed: 12/24/2023 14:19 Note Text: Radiology Service Progress Note PATIENT NAME: Munira Chester DATE OF SERVICE: December 24, 2023 TIME: 2:19 PM PATIENT IDENTITY VERIFICATION COMPLETED USING TWO (2) IDENTIFIERS: Name and Date of confirmed by patient verbally. FALL SCREENING: Has the patient had 2 falls in the last year or 1 fall with injury or currently using an Ambulatory Assistive Device (Walker, Cane, Wheelchair, Crutches, etc.)? No PATIENT GENDER DATA: Female. status: : No status: N/A PATIENT RELEVANT IMPLANT DATA REVIEWED: Yes PATIENT PRESENTS WITH AN IMPLANTABLE OR ATTACHED ACID PATROLLER: No RADIOLOGY DEPARTMENT: General X-ray: Exam(s) Completed: GI/ Procedure(s): Small bowel series with barium contrast PERIPHERAL IV DATA: Not applicable SIGNED BY: Mary Jimenez, RT(R) December 24, 2023 2:19 PM [facility] 12-04-2023 Telephone encounter Note Pt left VM and would like to reschedule GI test to earlier in week due to would like to come with her and drive and then maybe MD would also have test results before appt. Hollis Mckeon RN [facility] 12-04-2023 Miscellaneous Notes Pt left VM and would like to reschedule GI test to earlier in week due to would like to come with her and drive and then maybe MD would also have test results before appt. Hollis Mckeon RN documented in this encounter [facility] 10-31-2023 Telephone encounter Note Patient called to see if you have received a fax from a Dr. Nettles's office for a pill cam? [facility] 10-31-2023 Miscellaneous Notes Patient called to see if you have received a fax from a Dr. Nettles's office for a pill cam? documented in this encounter [facility] 10-16-2023 Telephone encounter Note Faxed referral received on 10/15/23 for pt sent from Dr. Ace from [facility] to attention Dr. Fallon, for pt for GI for consideration for double balloon enteroscopy. What records were received were scanned to chart. Hollis Mckeon RN [facility] 10-16-2023 Miscellaneous Notes Faxed referral received on 10/15/23 for pt sent from Dr. Ace from [facility] to attention Dr. Fallon, for pt for GI for consideration for double balloon enteroscopy. What records were received were scanned to chart. Hollis Mckeon RN documented in this encounter [facility] 09-05-2023 Note Dayan from [facility] called stating that a referral was faxed ton August 25 for patient for a double balloon enteroscopy. Had spoken with Dayan previously as we don't do the double balloons but referring physician is fine with just a single balloon. Patient is wanting to go to [facility] where a double balloon can be done so disregard this referral. [facility] 08-28-2023 Note Called and spoke cory Hanley at [facility] regarding a referral that was sent on August 25 for this patient. In reading the notes she is being referred for a double balloon enteroscopy and our physicians only do single balloon's. She will check with Dr. Ace to see how he would like to proceed and let me know. [facility] 05-23-2023 Note [id number] [facility] 05-22-2023 Hospital Discharge instructions Patient Education 05/22/2023 08:58:47 Colonoscopy, Care [...] unsweetened, w/added ascorbic acid 1 cup 0.5 Alcorn 1 cup 0.7 Vegetables Cooked Green beans 1 cup 4.0 Carrots 1/2 cup sliced 2.3 Peas 1 cup 8.8 Potato (baked, with skin) 1 medium potato 3.8 Raw [place] (with peel) 1 cucumber 1.5 Lettuce 1 [...] 8.7 Peanuts 1/2 cup 7.9 Chart from [employer] 2012. SEEK IMMEDIATE MEDICAL CARE IF: You develop [...] of Agriculture (USDA) National Nutrient Database at: http://www.nal.usda.gov/fnic/food comp/search/ Created using data from the USDA National Nutrient Database for Standard Reference. Available at http://www.[employer]Lyks.gov/fnic/food comp/search/. Information adapted from: [employer] Patient Information 2009 [employer]. [employer] 2012 http://www.[employer]k/contents/ [email or web address]-uaqqchl-wunoun-the-b asics 05/22/2023 08:58:41 Hemorrhoids, Ruaa-al-Ehsa Hemorrhoids Hemorrhoids are swollen veins that may [...] 3 times a day. General instructions Take gows-ooh-epbpcvt and prescription medicines only as told by [...] provider. Document Revised: 09/13/2021 Document Reviewed: 09/13/2021 [employer] Patient Education 2022 [place]. 05/22/2023 08:58:37 Endoscopy, Care After Procedure [facility] ([facility] [[email or web address] Endoscopy Care After Procedure Please read the [...] blood. Document Released: 10/16/2004 Document Re-Released: 08/26/2006 [employer] Patient Information 2010 [employer]. 05/22/2023 08:58:29 Hiatal Hernia Hiatal Hernia A [...] reduce GERD symptoms. Medicines. These may include: ?Udoj-pwa-utbvwci antacids. ?Medicines that make your stomach empty [...] may include: ?Fatty foods, like fried foods. ?Mathews fruits, like oranges or lemon. ?Other foods [...] Do not drink alcohol. General instructions Take jhmj-gvx-dqiqiok and prescription medicines only as told by [...] provider. Document Revised: 05/01/2022 Document Reviewed: 05/01/2022 [employer] Patient Education 2022 [place]. Follow Up Care 05/14/2023 13:37:06 With:Tho VILLEGAS, Del Duckworth [facility], [facility] Address: When: Unknown Comments:Call for any problems. The office will reach out in about one week from procedure date. [facility] 04-22-2023 Evaluation note Encounter Date Diagnosis Assessment Notes Apr, Moderate persistent asthma without complication (ICD-10 - J45.40) [facility] Other 02-02-2024 Evaluation note* Encounter Date Diagnosis Assessment Notes Treatment Notes Treatment Clinical Notes Apr, Moderate persistent asthma with acute exacerbation (ICD-10 - J45.41) [facility] Other 01-30-2024 Evaluation note* Encounter Date Diagnosis [...] Claritin, Singulair and Flonase Scheduled to see senior business manager. Mar, Gastroesophageal reflux disease with esophagitis without hemorrhage (ICD-10 - K21.00) Avoid lying flat after eating. Avoid eating 2 hours prior to bedtime. Smaller, frequent meals may be better tolerated.Weight loss if overweight.PPI with any heartburn.Monitor for dysphagia. [facility] Other 01-18-2024 Evaluation note* Encounter Date Diagnosis Assessment Notes Treatment Notes Treatment Clinical Notes Mar, Iron deficiency anemia due to chronic blood loss (ICD-10 - D50.0) [facility] Other 12-22-2023 Evaluation note* Encounter Date Diagnosis Assessment Notes Treatment Notes Treatment Clinical Notes Feb, Iron deficiency anemia due to chronic blood loss (ICD-10 - D50.0) [facility] Other 12-20-2023 Evaluation note* Encounter Date Diagnosis Assessment Notes Treatment Notes Treatment Clinical Notes Feb, Anemia (ICD-10 - D64.9) [facility] Other 12-11-2023 Evaluation note* Encounter Date Diagnosis Assessment Notes Treatment Notes Treatment Clinical Notes Feb, Moderate persistent asthma without complication (ICD-10 - J45.40) [facility] Other [id number] Hospital Discharge instructions Patient Education 02/20/2023 09:45:05 [...] relieve pelvic muscle tension or spasms. Take jywx-tbq-bysujpm and prescription medicines only as told by [...] provider. Document Revised: 07/12/2021 Document Reviewed: 07/12/2021 [employer] Patient Education 2022 [place]. 02/20/2023 09:44:59 Kegel Exercises Kegel Exercises Kegel [...] provider. Document Revised: 07/13/2021 Document Reviewed: 07/13/2021 [employer] Patient Education 2022 [place]. Follow Up Care 01/31/2022 08:50:25 With:Dewayne VILLEGAS, RANDAL Arizmendi, U[facility] Address: [address], [place] [address] [phone] When: Unknown Comments:[facility]-04-2023 Evaluation note* Encounter Date Diagnosis Assessment Notes Treatment Notes Treatment Clinical Notes Feb, Moderate persistent asthma with acute exacerbation (ICD-10 - J45.41) Holding Breo for trial of Trelegy. Avoid dust, mold, fumes as much as possible. Steroid taper to break cycle of coughing Refer to Software Security Architect and Director Loan when stable Feb, Non-seasonal allergi c rhinitis due to other allergic trigger (ICD-10 - J30.89) Continue FLonase NS Add Astepro NS Continue Claritin and Singulair Feb, Gastroesophageal reflux disease with esophagitis without hemorrhage (ICD-10 - K21.00) Diet instructions: Smaller portions, avoid eating and laying flat, avoid eating or drinking prior to bedtime. Weight loss. Continue [employer] Other 11-21-2023 Evaluation note* Encounter Date Diagnosis Assessment Notes Treatment Notes Treatment Clinical Notes Jan, Age-related osteopor osis without current pathological fracture (ICD-10 - M81.0) Jan, Hypercholesteremia (ICD-10 - E78.00) [facility] Other 11-14-2023 Evaluation note* Encounter Date Diagnosis Assessment Notes Treatment Notes Treatment Clinical Notes Jan, Menopause (ICD-10 - Z78.0) [facility] Other 11-10-2023 Evaluation note* Encounter Date Diagnosis Assessment Notes Treatment Notes Treatment Clinical Notes Jan, Hypercholesteremia (ICD-10 - E78.00) [facility] Other 11-10-2023 Evaluation note* Encounter Date Diagnosis [...] improved. Offered PFT and referral to Director Loan. Jan, Autoimmune thyroidit is (ICD-10 - E06.3) Clinically euthyroid, TSH yearly Jan, Other specified hypothyroidism (ICD-10 - E03.8) Jan, Vitamin D deficiency (ICD-10 - E55.9) Healthy diet, continue supplements. Check Vit D level Jan, Screening mammogram for breast cancer (ICD-10 - Z12.31) Instructed patient on monthly SBE and yearly mammograms. 10 Nov, 2023 High risk medication use (ICD-10 - Z79.899) [...] LORENZO (generalized anxiety disorder) (ICD-10 - F41.1) [facility] Other 09-27-2023 Evaluation note* Encounter Date Diagnosis Assessment Notes Treatment Notes Treatment Clinical Notes Nov, Moderate persistent asthma with acute exacerbation (ICD-10 - J45.41) Reviewed medication - continue LABA/ICS and NIKO - continue Singulair, Claritin and Flonase Suggested short course of Steroids and antibiotics. Discussed use of LAMA in combination of what she is presently taking CXR if no improvement [facility] Other 08-23-2023 Evaluation note* Encounter Date Diagnosis Assessment Notes Treatment Notes Treatment Clinical Notes Oct, Mild persistent asthma, uncomplicated (ICD-10 - J45.30) [facility] Other 08-17-2023 Evaluation note* Encounter Date Diagnosis [...] understanding and is agreeable to treatment plan [facility] Other 04-12-2023 NotePROCEDURE: XR FOOT RT MIN [...] authenticated by: JEROME ESPINOSA Date: 2022-06-27 15:36[id number] NotePROCEDURE: XR FOOT RT MIN 3 VIEWS [...] Electronically authenticated by: CAMPOS ERAZO Date: 2022-05-17 16:27[facility]02-09-2023 NotePROCEDURE: XR FOOT RT MIN 3 [...] Electronically authenticated by: JEROME ESPINOSA Date: 2022-04-26 09:37[facility]01-19-2023 NotePROCEDURE: XR FOOT RT MIN 3 [...] Electronically authenticated by: JEROME ESPINOSA Date: 2022-04-05 14:43[facility]01-19-2023 NotePROCEDURE: XR FOOT RT 2V HISTORY: [...] Electronically authenticated by: JEROME ESPINOSA Date: 2022-04-05 14:41[id number] NotePROCEDURE: XR FOOT RT MIN 3 VIEWS [...] Electronically authenticated by: JEROME ESPINOSA Date: 2022-03-28 10:17[facility]12-26-2022 NotePROCEDURE: XR FOOT RT MIN 3 [...] Electronically authenticated by: JEROME ESPINOSA Date: 2022-03-12 09:46[facility]12-19-2022 Evaluation note* Encounter Date Diagnosis Assessment Notes Treatment Notes Treatment Clinical Notes Feb, Acute pain of left shoulder (ICD-10 - M25.512) Feb, Tear of left supraspinatus tendon (ICD-10 - M75.102) A 1/1cc marcaine / kenalog cortisone injection was performed into the subacromial space under sterile technique. Patient tolerated the injection well with no adverse reaction. ADARTIS Other 09-16-2022 Hospital Discharge instructions Patient Education [...] nerve stimulation). For women, using a medical attendant to prevent urine leaks. This is a [...] right after experiencing incontinence. General instructions Take nfyd-ipc-zvrlozh and prescription medicines only as told by [...] 04/11/2005 Document Revised: 03/14/2018 Document Reviewed: 06/13/2017 [employer] Patient Education 2020 [place]. Follow Up Care 10/20/2021 08:23:44 With:Asuncion Buchanan MD, URL, URO Address: When: Unknown [facility] 2022 Evaluation note* Encounter Date Diagnosis Assessment [...] the injection well with no adverse reaction. ADARTIS Other Evaluation + Plan note Future Appointments Appointment Date:01/31/2022 08:00:00 AM Scheduled Provider:Asuncion Buchanan MD Location:[facility] Appointment Type:URO Office Visit [facility] Evaluation + Plan note Future Appointments Appointment Date:02/19/2024 08:00:00 AM Scheduled Provider:Asuncion Buchanan MD Location:[facility] Appointment Type:URO Office Visit [facility] evaluation + Plan note Future Appointments Appointment Date:05/22/2023 08:00:00 AM Scheduled Provider: Location:[facility] Appointment Type:Surgery FT Appointment Date:02/19/2024 08:00:00 AM Scheduled Provider:Asuncion Buchanan MD Location:[facility] Appointment Type:URO Office Visit [facility] Evaluation + Plan note Future Appointments Appointment Date:07/23/2023 08:00:00 AM Scheduled Provider: Location[facility] Appointment Type:CT Sinus/Orbits/Maxillofacial (FT) Appointment Date:02/19/2024 08:00:00 AM Scheduled Provider:Asuncion Buchanan MD Location:[facility] Appointment Type:URO Office Visit Future Scheduled Tests Radiology* XR Abdomen 1 View 07/04/23 * CT Maxillofacial w/o Contrast 07/23/23 [facility] Evaluation + Plan note Future Appointments Appointment Date:07/23/2023 08:00:00 AM Scheduled Provider: Location[facility] Appointment Type:CT Sinus/Orbits/Maxillofacial () Appointment Date:02/19/2024 08:00:00 AM Scheduled Provider:Asuncion Buchanan MD Location:[facility] Appointment Type:URO Office Visit Future Scheduled Tests Radiology* CT [facility]illofacial w/o Contrast [facility] Future App[facility]ments Appointment Date:07/23/2023 08:00:00 AM Scheduled Provider: [facility] Type:CT Sinus/Orbits/Maxillofacial () Appointment Date:08/15/2023 08:15:00 AM Scheduled Provider:Del Nettles MD Location:[facility] Appointment Type:BAD Follow Up Appointment Date:02/19/2024 08:00:00 AM Scheduled Provider:Asuncion Buchanan MD Location:[facility] Appointment Type:URO Office Visit Future Scheduled Tests Radiology* CT Maxillofacial w/o Contrast 07/23/23 [facility] Evaluation + Plan note Future Appointments Appointment Date:08/15/2023 08:15:00 AM Scheduled Provider:Del Nettles MD Location[facility] Appointment Type:BAD Follow Up Appointment Date:02/19/2024 08:00:00 AM Scheduled Provider:Asuncion Buchanan MD Location:[facility] Appointment Type:URO [facility] Future Appointments Appointment Date:02/05/2024 10:45:00 AM Scheduled Provider:Asuncion Buchanan MD Location:[facility] Appointment Type:URO Office Visit [facility] evaluation + Plan note Future Appointments Appointment Date:02/05/2024 10:45:00 AM Scheduled Provider:Asuncion Buchanan MD Location:[facility] Appointment Type:URO Office Visit Diagnostic Tests Pending * Urine Culture 12/27/23 [facility] Evaluation noteNo InformationNort [employer] Other Evaluation noteNo assessment information available [facility] Work Phone: Evaluation note* Diagnosis Other partial intestinal obstruction (HCC)- [facility] [place] [facility] Diagnosis Other partial intestinal obstruction (HCC) [facility] [place] [facility]* Diagnosis Iron deficiency anemia due to chronic blood loss- Primary Iron deficiency anemia secondary to blood loss (chronic) Abnormal finding on GI tract imaging Nonspecific (abnormal) findings on radiological and other examination of gastrointestinal tract [facility] [place] [facility]* Diagnosis Chronic maxillary sinusitis- Primary Chronic pansinusitis Other chronic sinusitis documented in this [facility] general Narrative - Reported* Type Description Date [...] above Hospitalization History blood transfusion from b [email or web address] Other Hisqqki general Narrative - Reported* Type Description Date [...] above Hospitalization History blood transfusion from b [email or web address] Other history general Narrative - Reported* Type [...] above Hospitalization History blood transfusion from b [email or web address] Other History general Narrative - Reported* Type [...] above Hospitalization History blood transfusion from b [email or web address] Other Hisujwk general Narrative - Reported* Type Description Date [...] above Hospitalization History blood transfusion from b [email or web address] Other Hospital course Narrative No data available for this section [facility] [employer] Hospital Discharge instructions No data available for this section [facility] Progress note No data available for this section [facility] [employer] Reason for referral (narrative)* Reason *FU 04/23 Referral for iron deficiency anemia. Diagnosis 1 Iron deficiency anem ia secondary to inadequate dietary iron intake (D50.8) Referral Organization [facility] [employer] kenny Referring Provider First Name Andrea Referring Provider Last Name [place] Referring Provider Specialty Internal Me dicine Referred Organization [facility] Referred Provider CHRISSY HECTOR Referred Address [address] [place], [place],[address] Referred Provider Specialty Hematology Referral Priority Routine [...] faxed Clinical Notes Include labs results p: [id number] f: [id number] Reason Referral for pe rsistent cough and wheezing Diagnosis 1 Moderate persistent asthma with acute exacerbation (J45.41) Referral Organization [facility] [place] kenny Referring Provider First Name Andrea Referring Provider Last Name [place] Referring Provider Specialty Internal Me dicine Referred Organization [facility] Referred Provider Edouard Espinosa Referred Address [address] [place], [place],[address] Referred Provider Specialty Pulmonary Di seases Referral Priority Routine General Notes Patient w/ allergic rhinitis and asthma w/ deterioration of her symptoms over the past year. Her medications have been maximized and alternative etiology for cough and wheezing addressed. She has been referred to an Software Security Architect for evaluation and scheduled for a PFT. [...] inadequate dietary iron intake (D50.8) [facility] Referring Provider First Name Andrea Referring Provider Last Name [place] Referring Provider Specialty Internal Me dicine Referred Organization [facility] Referred Address [address] [facility] [address],[place], [place],[address] Referred Provider Specialty Gastroentero logy Referral Priority [...] notes locked, referral faxed Clinical Notes f: [id number] ADARTIS Other Reason for referral (narrative)* Reason *FU 04/23 Referral for iron deficiency anemia. Diagnosis 1 Iron deficiency anem ia secondary to inadequate dietary iron intake (D50.8) Referral Organization [facility] [employer] [facility] Referring Provider First Name Andrea Referring Provider Last Name [place] Referring Provider Specialty Internal Me dicine Referred Organization [facility] Referred Provider CHRISSY HECTOR Referred Address [address] [place],[address] Referred Provider Specialty Hematology Referral Priority Routine [...] faxed Clinical Notes Include labs results p: [id number] f: [id number] Reason Referral for pe rsistent cough and wheezing Diagnosis 1 Moderate persistent asthma with acute exacerbation (J45.41) [facility] Referring Provider First Name Andrea Referring Provider Last Name [place] Referring Provider Specialty Internal Me dicine Referred Organization [facility] Referred Provider Edouard Espinosa Referred Address [address] [place],[address] Referred Provider Specialty Pulmonary [facility] Referral Priority Routine General Notes Patient w/ allergic rhinitis and asthma w/ deterioration of her symptoms over the past year. Her medications have been maximized and alternative etiology for cough and wheezing addressed. She has been referred to an Software Security Architect for evaluation and scheduled for a PFT. [...] inadequate dietary iron intake (D50.8) [facility] Referring Provider First Name Andrea Referring Provider Last Name [place] Referring Provider Specialty Internal Me dicine Referred Organization [facility] Referred Address [address] [facility] [address],[place], [place],[address] Referred Provider Specialty Gastroentero logy Referral Priority [...] to Hematology for IV iron and evaluation. ADARTIS Other Reason for referral (narrative)* Diagnostic Procedure Only (Routine) - Closed Specialty Diagnoses / Procedures Referred By Chinmay stark Referred To Contact XR IMAGING Diagnoses Other partial intestinal obstruction (HCC) Procedures XR SMALL BOWEL SERIES RADIOLOGIC EXAM SMALL INT SINGLE CONTRAST STUDY Kasey Fallon MD [address] [address] [place] [address] Referral ID Status Reason Start Date Expiration Date V isits Requested Visits Authorized [id number] Closed Auto-Generate d Referral 11/22/2023 12/21/2024 1 1 [facility] Outpatient Procedure (Routine) - New Request Specialty Diagnoses / Procedures Referred By Chinmay stark Referred To Contact [facility] Diagnoses Iron deficiency anemia due to chronic blood loss Abnormal finding on GI tract imaging Procedures ENTEROSCOPY ENTEROSC >2ND PRTN W/ILEUM W/BX SINGLE/MULTIPLE UNLISTED PROCEDURE SMALL INTESTINE [facility] [address] [place] [address] [facility] [address] [place] [address] Referral ID Status Reason Start Date Expiration Date Visits Requested Visits Authorized [id number] New Request Auto-Generat ed Referral 12/26/2024 1 1 [facility] Summary Purpose Family History No Family History [...] Specified Diabetes mellitus Unknown Unknown Advance Directives No Advanced Directives Records Found Advance Directive Response Recorded Date/ Time Advance Directives No September 08 8:51am Chief Complaint and Reason for Visit Chief Complaint M25.512 Chief Complaint Check Up Amb Documentation Amb Documentation Cough Chief Complaint Amb Documentation Amb Documentation Cough congestion, cough Reason for Referral Specialty Diagnoses / Procedures Referred By Chinmay stark Referred To Contact CT IMAGING Diagnoses Other partial intestinal obstruction (HCC) Procedures CT ENTEROGRAPHY W IVCON CT ABD & PELVIS W/CONTRAST [facility]y [facility] [address] [place] [address] [address] [place] [address] Referral ID Status Reason Start Date Expiration Date Visits Requested Visits Authorized [id number] New Request Auto-Generat ed Referral 10/31/2023 11/29/2024 1 1 Additional Source Comments REASON FOR VISIT (unrecogniz ed section and content) Reason Comments Consult Reason Comments Patient Question Reason Comments help rescheduling GI test Reason Comments Radio GI Main HB6 Specialty Diagnoses / Procedures Referred By Contac t Referred To Contact XR IMAGING Diagnoses Other partial intestinal obstruction (HCC) Procedures XR SMALL BOWEL SERIES RADIOLOGIC EXAM SMALL INT SINGLE CONTRAST STUDY Kasey Fallon MD [facility] [address] [place] [address] [facility] Referral ID Status Reason Start Date Expiration Date V isits Requested Visits Authorized [id number] Closed Auto-Generate d Referral 11/22/2023 12/21/2024 1 1 Reason Comments New Patient Double balloon Reason Comments Follow-up Pt here for follow u p apt with no new complaints surgeries or hospital stays INFORMATION SOURCE (unrecogn ized section and content) DATE CREATED AUTHOR 10/11/2021 [facility] DATE CREATED AUTHOR AUTHOR'S ORGANIZ ATION 07/02/2022 [facility] DATE CREATED AUTHOR AUTHOR'S ORGANIZ ATION 09/07/2023 [facility] DATE CREATED AUTHOR AUTHOR'S ORGANIZ ATION 09/15/2023 [facility] DATE CREATED AUTHOR AUTHOR'S ORGANIZ ATION 10/12/2023 [facility] DATE CREATED AUTHOR AUTHOR'S ORGANIZ ATION 11/10/2023 [facility] DATE CREATED AUTHOR AUTHOR'S ORGANIZ ATION 12/29/2023 [facility] DATE CREATED AUTHOR AUTHOR'S ORGANIZ ATION 01/01/2024 [facility] DATE CREATED AUTHOR AUTHOR'S ORGANIZ ATION 01/01/2024 [facility] DATE CREATED AUTHOR AUTHOR'S ORGANIZ ATION 01/05/2024 [facility] DATE CREATED AUTHOR AUTHOR'S ORGANIZ ATION 01/31/2024 [facility] [employer] Care Teams (unrecognized sec tion and content) Team Status: Active Member Role Status Dates Andrea Golden , Primary Care Provider Active Team Status: Active Member Role Status Dates Andrea Golden DO Primary Care Provider Active Start: May 23, 2023 Lisa Em Attending Provider Active Start: [facility] 2023 Team Status: Active Member Role Status Dates Andrea Golden DO Primary Care Provider Active Start: May 23, 2023 GERALD Rojo Attending Provider Active Start : May 23, 2023 Team Status: Inactive Member Role Status Dates Andrea Golden DO Primary Care Provide r, Attending Provider Active Start: June 21, 2023 End: June 21, 2023 Team Status: Active Member Role Status Dates Andrea Golden DO Primary Care Provide r, Attending Provider Active Start: June 27, 2023 Team Status: Active Member Role Status Dates Andrea Golden DO Primary Care Provide r, Attending Provider Active Start: July 02, 2023 Team Status: Inactive Member Role Status Dates Andrea Golden DO Primary Care Provider Active Start: August 20, 2023 End: August 20, 2023 Gladis Bell APRN Attending Provider Active Start: August 20, 2023 End: August 20, 2023 Team Status: Inactive Member Role Status Dates Espinoza Ruiz MD Attending Provider Active Detective Sergeant Relationship Specialty Start Date End Date Andrea Golden MD [address] [place] [address] PCP - General Internal Medicine 08/27/22 Team Status: Inactive Member Role Status Dates Andrea Golden DO Attending Provider Active Sta rt: April 16, 2023 End: April 16, 2023 Detective Sergeant Relationship Specialty Start Date End Date Andrea Golden DO [address] [place] [address] PCP - General Internal Medicine 12/27/23 Jones Ace MD [address] [place] [id number] Internal Medicine 12/27/23 Chrissy Hector MD [address] [place] [address] Hematology/Oncology 12/27/23 Detective Sergeant Relationship Specialty Start Date End Date Andrea Golden MD PCP - General Internal Medicine 08/27/22 Detective Sergeant Relationship Specialty Start Date End Date Andrea Golden MD PCP - General Internal Medicine 08/27/22 Goals (unrecognized section and content) Goals may be documented in a n alternate section Source Comments (unrecognize d section and content) In the event this informatio n is protected by the Federal Confidentiality of Alcohol and Drug Abuse Patient Records regulations: The Federal rules restrict any use of the information to criminally investigate or prosecute any alcohol or drug abuse patient.[facility] the event this information is protected by the Federal Confidentiality of Alcohol and Drug Abuse Patient Records regulations: The Federal rules restrict any use of the information to criminally investigate or prosecute any alcohol or drug abuse patient.[facility] the event this information is protected by the Federal Confidentiality of Alcohol and Drug Abuse Patient Records regulations: The Federal rules restrict any use of the information to criminally investigate or prosecute any alcohol or drug abuse patient.[facility] the event this information is protected by the Federal Confidentiality of Alcohol and Drug Abuse Patient Records regulations: The Federal rules restrict any use of the information to criminally investigate or prosecute any alcohol or drug abuse patient.[facility] the event this information is protected by the Federal Confidentiality of Alcohol and Drug Abuse Patient Records regulations: The Federal rules restrict any use of the information to criminally investigate or prosecute any alcohol or drug abuse patient.[facility] the event this information is protected by the Federal Confidentiality of Alcohol and Drug Abuse Patient Records regulations: The Federal rules restrict any use of the information to criminally investigate or prosecute any alcohol or drug abuse patient.[facility] the event this information is protected by the Federal Confidentiality of Alcohol and Drug Abuse Patient Records regulations: The Federal rules restrict any use of the information to criminally investigate or prosecute any alcohol or drug abuse patient.[facility] FOR RECORDS PERTAINING TO PATIENTS WHO ARE [...] BE BASED ON THE PRIMARY CLINICAL RECORDS. [employer] [facility]. provides no warranty or guarantee of the accuracy or completeness of information in this document.
== END 2024-02-03 07:23 | disposition home or self-care (01) ==
LOC: MAMMO 07:22
PROVIDERS: PCP Internal Medicine; Visit Provider Obstetrics & Gynecology
DX: Z12.31 Encounter for screening mammogram for malignant neoplasm of breast (principal); Z80.3 Family history of malignant neoplasm of breast; Z80.8 Family history of malignant neoplasm of other organs or systems
CPT/HCPCS: 77063; 77067

== ENCOUNTER 2024-02-18 09:10 | Outpatient (OUT) | payer MEDICARE, OTHER, SELFPAY ==
[2024-02-18 11:34] LABS: Thyroid Stimulating Hormone 1.723 uIU/mL (0.358-3.740)
== END 2024-02-18 09:11 | disposition home or self-care (01) ==
LOC: LAB 09:10
PROVIDERS: PCP Internal Medicine; Visit Provider Internal Medicine
DX: E89.0 Postprocedural hypothyroidism (principal)
CPT/HCPCS: 36415; 84443

== ENCOUNTER 2024-02-18 09:11 | Outpatient (OUT) | payer MEDICARE, OTHER, SELFPAY ==
[2024-02-18 09:52] LABS: Basophils Percent Auto 0.3 % (0.2-2.0); Eosinophils Absolute Auto 0.3 10^3/uL (0.0-0.7); Eosinophils Percent Auto 5.9 % (0.9-7.0); Hemoglobin 13.1 g/dL (12.0-16.0); Immature Granulocytes Abs Auto 0.04 10^3/uL (0.00-0.03); Immature Granulocytes Pct Auto 0.7 % (0.0-0.5); Lymphocytes Absolute Auto 1.5 10^3/uL (1.2-3.8); Lymphocytes Percent Auto 26.4 % (20.5-60.0); Mean Corpuscular HGB Conc 33.6 g/dL (29.9-35.2); Mean Corpuscular Volume 92.4 fL (81.0-99.0); Mean Platelet Volume 9.7 fL (9.5-13.5); Monocytes Absolute Auto 0.6 10^3/uL (0.3-0.8); Monocytes Percent Auto 9.7 % (1.7-12.0); Neutrophils Absolute Auto 3.3 10^3/uL (1.4-6.5); Platelet Count 349 10^3/uL (150-450); Red Blood Count 4.22 10^6/uL (4.20-5.40); Red Cell Distribution Width 13.8 % (11.0-15.0); White Blood Count 5.8 10^3/uL (4.0-11.0)
[2024-02-18 11:12] LABS: Percent Iron Saturation 22.8 %
[2024-02-18 11:26] LABS: Alanine Aminotransferase 30 U/L (14-59); Albumin Globulin Ratio 1.4; Albumin Level 3.8 g/dL (3.4-5.0); Alkaline Phosphatase 81 U/L (46-116); Anion Gap 12.3; Aspartate Amino Transferase 27 U/L (15-37); Carbon Dioxide 29.2 mmol/L (21.0-32.0); Chloride 108 mmol/L (98-107); Estimated GFR (African America >60 (>=60 mL/min/1.73m^2); Estimated GFR (Non-African Ame 55 (>=60 mL/min/1.73m^2); Globulin 2.8 g/dL; Glucose 86 mg/dL (74-106); Potassium 3.5 mmol/L (3.5-5.1); Sodium 146 mmol/L (136-145); Total Protein 6.6 g/dL (6.4-8.2)
== END 2024-02-18 09:12 | disposition home or self-care (01) ==
LOC: LAB 09:11
PROVIDERS: PCP Internal Medicine; Visit Provider Internal Medicine Hematology & Oncology
DX: E89.0 Postprocedural hypothyroidism (principal); D64.9 Anemia, unspecified; D50.9 Iron deficiency anemia, unspecified; K90.9 Intestinal malabsorption, unspecified
CPT/HCPCS: 36415; 80053; 82728; 83540; 83550; 84443; 85025

== ENCOUNTER 2024-02-25 07:32 | Outpatient (RCR) | payer MEDICARE, OTHER, SELFPAY | END 2024-02-25 14:08 | disposition home or self-care (01) | LOC: HEMC 07:32 | PROVIDERS: PCP Internal Medicine; Visit Provider Internal Medicine Hematology & Oncology | DX: D50.9 Iron deficiency anemia, unspecified (principal); K90.9 Intestinal malabsorption, unspecified; D64.9 Anemia, unspecified; K21.9 Gastro-esophageal reflux disease without esophagitis; R05.3 Chronic cough | CPT/HCPCS: G0463 ==

== ENCOUNTER 2024-04-28 11:14 | Outpatient (OUT) | payer MEDICARE, OTHER, SELFPAY ==
[2024-04-28 11:39] LABS: Basophils Percent Auto 0.4 % (0.2-2.0); Eosinophils Absolute Auto 0.2 10^3/uL (0.0-0.7); Eosinophils Percent Auto 2.7 % (0.9-7.0); Hematocrit 40.5 % (36.0-48.0); Hemoglobin 13.2 g/dL (12.0-16.0); Immature Granulocytes Abs Auto 0.04 10^3/uL (0.00-0.03); Immature Granulocytes Pct Auto 0.5 % (0.0-0.5); Lymphocytes Absolute Auto 1.7 10^3/uL (1.2-3.8); Lymphocytes Percent Auto 20.4 % (20.5-60.0); Mean Corpuscular HGB Conc 32.6 g/dL (29.9-35.2); Mean Corpuscular Hemoglobin 30.3 pg (26.7-34.0); Mean Corpuscular Volume 93.1 fL (81.0-99.0); Mean Platelet Volume 9.9 fL (9.5-13.5); Monocytes Absolute Auto 0.6 10^3/uL (0.3-0.8); Monocytes Percent Auto 7.5 % (1.7-12.0); Neutrophils Absolute Auto 5.8 10^3/uL (1.4-6.5); Neutrophils Percent Auto 68.5 % (43.0-75.0); Platelet Count 375 10^3/uL (150-450); Red Blood Count 4.35 10^6/uL (4.20-5.40); Red Cell Distribution Width 13.5 % (11.0-15.0); White Blood Count 8.5 10^3/uL (4.0-11.0)
[2024-04-28 12:07] LABS: Alanine Aminotransferase 22 U/L (14-59); Albumin Globulin Ratio 1.2; Albumin Level 3.8 g/dL (3.4-5.0); Alkaline Phosphatase 96 U/L (46-116); Anion Gap 11.9; Aspartate Amino Transferase 19 U/L (15-37); BUN Creatinine Ratio 17.6; Bilirubin Total 0.5 mg/dL (0.2-1.0); Carbon Dioxide 30.2 mmol/L (21.0-32.0); Chloride 105 mmol/L (98-107); Estimated GFR (African America >60 (>=60 mL/min/1.73m^2); Estimated GFR (Non-African Ame >60 (>=60 mL/min/1.73m^2); Globulin 3.2 g/dL; Glucose 86 mg/dL (74-106); Potassium 4.1 mmol/L (3.5-5.1); Sodium 143 mmol/L (136-145)
[2024-04-29 04:07] LABS: Vitamin B12 796 pg/mL (232-1245)
== END 2024-04-28 11:15 | disposition home or self-care (01) ==
LOC: LAB 11:14
PROVIDERS: PCP Internal Medicine; Visit Provider Internal Medicine Hematology & Oncology
DX: D64.9 Anemia, unspecified (principal); D50.9 Iron deficiency anemia, unspecified; K90.9 Intestinal malabsorption, unspecified
CPT/HCPCS: 36415; 80053; 82306; 82607; 82728; 83540; 83550; 85025

== ENCOUNTER 2024-05-05 07:33 | Outpatient (RCR) | payer MEDICARE, OTHER, SELFPAY ==
--- OUTSIDE RECORDS SUMMARY | 2024-05-05 07:37 | XMS_ITS | CCD ---
Author Organization [facility] Care Team Providers Care Sap Solution Manager Consultant Name Role Phone Espinoza Ruiz Unavailable ANDREA GOLDEN Primary Care Physician Andrea Golden Unavailable Luma Chirinos Unavailable PABLO, DR CAMPOS Nixon Consulting Unavailable CHICO, DR WILKES Primary Care Unavailable TERESA CROWELL Attending Unavailable TERESA CROWELL Admitting Unavailable TERESA CROWELL Consulting Unavailable JESÚS, DR JEROME Winkler Consulting Unavailable HAY ., DR MONZON Attending Unavailable HAY ., DR MONZON Admitting Unavailable BALL, DR WILKES Primary Care Unavailable HAY ., DR MONZON Consulting Unavailable OLEXAESPINOZA Consulting Unavailable BASHIR DANIELLE Consulting Unavailable CHICO, DR WILKES Primary Care Unavailable BASHIR DANIELLE Attending Unavailable BASHIR DANIELLE Admitting Unavailable MARGARITO MAS Consulting Unavailable JESÚS, DR JEROME Winkler Consulting Unavailable CHICO, DR WILKES Primary Care Unavailable BASHIR DANIELLE Attending Unavailable BASHIR DANIELLE Admitting Unavailable BASHIR DANIELLE Consulting Unavailable LEILANIGILBERT Consulting Unavailable SYED PAZ Consulting Unavailable RILEY HURTADO Consulting Unavailable ZIPAULINE, DR JEROME Winkler Consulting Unavailable CHICO, DR [...] Unavailable CHICO, DR WILKES Primary Care Unavailable TERESA CROWELL Attending Unavailable TERESA CROWELL Admitting Unavailable JESÚS, DR JEROME Winkler Consulting Unavailable CHICO, DR WILKES Primary Care Unavailable BASHIR DANIELLE Attending Unavailable BASHIR DANIELLE Admitting Unavailable BASHIR DANIELLE Consulting Unavailable DR JEROME ESPINOSA Consulting Unavailable DR ANDREA GOLDEN Primary Care Unavailable TERESA CROWELL Attending Unavailable TERESA CROWELL Admitting Unavailable TERESA CROWELL Consulting Unavailable Shannan Webster Unavailable Andrea Golden MD Primary Care Provider JHONNY MAHER Attending Unavailable DARLINE PEREIRA Attending Unavailable JHONNY MAHER Referring Unavailable Unavailable Primary Care Provider UnavailLUMA Latif Attending Unavailable DARLINE PEREIRA Referring Unavailable Moustapha Ace MD Unavailable Chrissy Hector MD Unavailable [phone] Andrea Golden DO Primary Care Provider Andrea Golden MD Primary Care Provider KASEY FALLON Attending Unavailable JAKE ACEHAMMAD TALAL Referring Unavaila ble ANDREA GOLDEN Primary Care Unavailable KASEY FALLON Referring Unavailable Mouchli, Mohamad AJose Attending Unavailable Mouchli, Mohamad A. Attending Unavailable Mouchli, Mohamad A. Attending Unavailable Mouchli, Mohamad A. Attending Unavailable Mouchli, Mohamad A. Attending Unavailable Lue, Asuncion MJose Attending Unavailable Lue, Asuncion MJose Attending Unavailable Lue, Asuncion M. Attending Unavailable Mouchli, Mohamad A. Attending Unavailable Mouchli, Mohamad A. Referring Unavailable Mouchli, Mohamad A. Admitting Unavailable Timmis, Marci H Admitting Unavailable Timmis, Marci H Attending Unavailable Timmis, Marci H Referring Unavailable Mouchli, Mohamad A. Attending Unavailable Mouchli, Mohamad A. Admitting Unavailable Lue, Asuncion M. Admitting Unavailable Lue, Asuncion M. Attending Unavailable Mouchli, Mohamad A. Attending Unavailable Lue, Asuncion M. Admitting Unavailable Lue, Asuncion M. Attending Unavailable Lue, Asuncion M. Referring Unavailable Unavailable Primary Care Provider Unavailabl e Lue, Asuncion M. Referring Unavailable Lue, Asuncion M. Attending Unavailable Lue, Asuncion M. Admitting Unavailable Lue, Asuncion M. Attending Unavailable Lue, Asuncion M. Attending Unavailable Lue, Asuncion M. Referring Unavailable Lue, Asuncion M. Admitting Unavailable Lue, Asuncion M. Attending Unavailable Lue, Asuncion M. Attending Unavailable Lue, Asuncion M. Referring Unavailable Lue, Asuncion M. Admitting Unavailable RINKES, MADISON E Attending Unavailable RAMBASEK, CHARITO E Attending Unavailable RAMBASEK, CHARITO E Attending Unavailable RAMBASEK, CHARITO E Attending Unavailable TIMMIS, MARCI H Attending Unavailable RAMBASEK, CHARITO E Attending Unavailable TIMMIS, MARCI H Attending Unavailable RAMBASEK, CHARITO E Attending Unavailable RAMBASEK, CHARITO E Attending Unavailable RAMBASEK, CHARITO E Attending Unavailable MARSHA LAL Attending Unavailable Allergies Allergy Classification Reported Allergen(s) Allergy Type Date of Onset Reaction(s) Facility (20 sources) Amoxicillin; Translations: [AMOXICILLIN] Drug Allergy 10-22-19 19 Rash, Unknown, Other: See Comments [facility] (20 sources) Sulfacetamide / Sulfur Drug Allergy Unknown [facility] Other (20 sources) idp dye Propensity to adverse reactions 06-21-19 24 Unknown, Unknown Reaction [facility] (17 sources) Sulfonamides (Antibiotic); Translations: [SULFA (SULFONAMIDE ANTIBIOTICS)] Allergy to substance 12-08-19 08 Rash, Unknown [facility] (19 sources) wasp venom; Translations: [WASP VENOM] Allergy to substance 10-22-19 19 Anaphylaxis [facility] (9 sources) bee venom protein (honey bee); Translations: [BEE VENOM PROTEIN (HONEY BEE)] Allergy to substance 10-22-19 19 Anaphylaxis [facility] (20 sources) Iodinated Contrast Media; Translations: [IODINATED CONTRAST MEDIA] Allergy to substance 12-08-19 08 Other, Shortness of breath, Unknown, Anaphylaxis, Hives [facility] (20 sources) Bee/Wasp/Ant venom; Translations: [Bee Stings] Drug allergy Dyspnea (finding), Weal (disorder) [facility] (20 sources) Contrast media; Translations: [contrast media (iodine-based)] Drug allergy 12-08-19 08 Dyspnea (finding), Weal (disorder) [facility] (20 sources) Iodine; Translations: [iodine] Drug Allergy 01-15-20 23 Unknown (qualifier value), Unknown, Anaphylaxis [facility] (20 sources) Penicillin; Translations: [penicillin] Drug Allergy 09-14-19 24 Eruption of skin (disorder), Rash [facility] (20 sources) Sulfonamides (Antibiotic); Translations: [sulfa drugs] Drug allergy Angioedema (disorder) [facility] (1 source) bee venom Drug allergy (disorder) [facility] (1 source) Iodine (And Iodine Containting Drugs) Drug allergy (disorder) 01-19-20 15 [facility] (5 sources) Penicillins Drug allergy (disorder) 06-21-19 24 Unknown Reaction [facility] (1 source) Sulfonamides (Antibiotic) Drug allergy (disorder) 03-18-18 56 [facility] (2 sources) Iodine / Sodium Iodide Drug Allergy Unknown [facility] Other (18 sources) Substance with penicillin structure and antibacterial mechanism of action (substance) Drug allergy Unknown [facility] Other (20 sources) Substance with sulfonamide structure and antibacterial mechanism of action (substance) Drug allergy 12-08-19 08 Unknown [facility] Other (2 sources) Allergies Reconciled Propensity to adverse reactions Unknown [facility] Other (2 sources) patient allergy list reviewed by nurse or physicia Propensity to adverse reactions 09-25-19 18 Comment:Done [facility] Other (11 sources) Penicillin G Drug Allergy 01-15-20 23 Rash [facility] (4 sources) Sulfacetamide Drug Allergy 06-21-19 24 Unknown Reaction [facility] (4 sources) Sulfur Drug Allergy 06-21-19 24 Unknown Reaction [facility] (4 sources) SULFACETAMIDE [id number]; Translations: [SULFACETAMIDE [id number]] Propensity to adverse reactions to drug (disorder) 09-14-19 24 Unknown [place] [id number] Repository (1 source) Contrast media; Translations: [CONTRAST DYE] Propensity to adverse reactions to drug (disorder) 12-08-[address] [facility] Repository Medications Current Medications Medication Drug Class(es) [...] mouth every 6 hours as needed. Active [id number] 200 actuat albuterol 0.09 mg/actuat metered dose inhaler (20 sources) beta2-Adrenergic Agonist Start: 09-02-2019 take 2 puff(s) by inhalation every four hours ProAir HFA 90 mcg/inh inhalation aerosol 2 puff(s), Inhalation, q4hr Shortness of breath or wheezing, Refill(s) 0 Start Date: 09/02/19 Status: Ordered Start: 10-21-2018 Albuterol Sulf ate 90 mcg/actuation HFA aerosol inhaler Active 2 PUFF INHALATION As Directed as needed for Shortness Of Breath Or Wheezing October 20, 2018 11:00pm albuterol HFA 90 mcg/act inhaler Inhale 2 [...] mg oral tablet (20 sources) Bisphosphonate Start: 01-09-2024 Alendronate 70 mg tablet Active 0 .ROUTE .COMPLEX January 09, 2024 11:33am TAKE 1 TABLET ONCE WEEKLY 30 MINUTES BEFORE THE FIRST FOOD, BEVERAGE OR MEDICINE OF THE DAY WITH PLAIN WATER Start: 10-21-2018 End: 01-09-2024 take 1 tablet by mouth every week Fosamax 70 mg Tab 70 mg = 1 tab(s), Oral, qWeek, Refills(s) 0, Prophylaxis Start Date: 09/02/19 Status: Ordered take 1 tablet by grzegorz th once daily Fosamax 70 MG tablet 1 tablet 30 minutes before the first food, beverage or medicine of the day with plain water Orally for 30 day(s) Active amLODIPine 5 mg oral tablet (20 sources) Dihydropyridine Calcium Channel Beau Start: 02-20-2023 End: 05-23-2023 amLODIPine (Norvasc) 5 MG tablet Refills(s) 0 02/20/2023 Active aspirin 325 mg oral tablet (2 sources) Platelet Aggregation Inhibitor, Nonsteroidal Anti-inflammatory Drug aspirin 325 mg ca p Take by mouth. Active aspirin 81 mg EC tablet once every 24 hours. Active aspirin 770 mg / caffeine 60 mg / orphenadrine citrate 50 mg oral tablet (5 sources) Platelet Aggregation Inhibitor, Nonsteroidal Anti-inflammatory Drug, Muscle Relaxant, Central Nervous System Stimulant, Methylxanthine Start: 10-21-2018 take 0.5 tablet by mouth four times daily as needed for headache [id number] 50-770-60 mg Tablet Active 0.5 TAB PO Four times daily as needed for Headache October 20, 2018 11:00pm Astepro 205.5 MCG/SPRAY (1 source) Start: 02-18-2023 take 2 spray(s) nasal route twice daily Astepro 205.5 MCG/SPRAY 2 sprays in each nostril Nasally bid for 30 days Feb, Active atorvastatin 10 mg oral tablet (20 sources) HMG-CoA Reductase Inhibitor Start: 01-27-2024 Atorvastatin 10 mg tablet Active 0 .ROUTE .COMPLEX January 27, 2024 1:00pm TAKE 1 TABLET EVERY EVENING Start: 10-21-2018 End: 01-27-2024 take 1 tablet by mouth once daily atorvastatin 10 mg Tab 10 mg = 1 tab(s), Oral, Daily, Refills(s) 0, High cholesterol Start Date: 09/02/19 Status: Ordered azelastine hydrochloride 0.137 mg/actuat metered dose nasal spray (19 sources) Histamine-1 Receptor Antagonist Start: 05-16-2023 End: [...] in each nostril Nasally bid Feb, Active betamethasone 0.001 mg/mg topical ointment (20 sources) Corticosteroid Start: 01-31-2024 End: 04-16-2024 betamethasone valerate (Valisone) 0.1 % ointment Indications: Lichen sclerosus et atrophicus APPLY TO THE AFFECTED AREA EXTERNALLY TWO TIMES A DAY, REPLACES PREVIOUS SENT SCRIPT 60 g 11 01/31/2024 04/16/2024 Discontinued (Ineffective) Start: 09-17-2023 End: 04-16-2024 betamethasone valerate (Dionte sone) 0.1 % cream Indications: Lichen sclerosus et atrophicus APPLY TO THE AFFECTED AREA TWICE A DAY 60 g 2 12/31/2023 04/16/2024 Discontinued (Ineffective) Start: 09-09-2023 betamethasone valerate (Valisone) 0.1 % ointment 09/09/2023 Active Start: 03-13-2023 betamethasone valerate (Valisone) 0.1 % cream Indications: Lichen sclerosus et atrophicus Apply to affected area twice daily, Replace previous sent script 60 g 3 03/13/2023 Active Start: 10-21-2018 Betamethasone Valerate 0.1 % Cream Active 1 APPLIC TOPICAL As Directed October 20, 2018 11:00pm Start: 10-21-2018 Betamethasone Valerate Active 1 APPLIC TOPICAL As Directed October 21, 2018 12:00am Betamethasone No t-Taking/PRN Betamethasone No t-Taking Betamethasone Ac tive Breo Ellipta 200 mcg-25 mcg/ inh inhalation powder (7 sources) Start: 02-05-2024 Breo Ellipta 2 00 mcg-25 mcg/inh inhalation powder 1 inh, Refill(s) 0 Start Date: 02/05/24 Status: Ordered Start: 09-02-2019 take 1 puff(s) by in halation once daily Breo Ellipta 200 mcg-25 mcg/inh inhalation powder 1 puff(s), Inhalation, Daily, Refill(s) 0 Start Date: 09/02/19 Status: Ordered budesonide 0.25 mg/ml inhalation suspension (10 sources) Corticosteroid Start: 08-20-2023 End: 08-19-2024 take 2 mL by mouth in the morning budesonide (Pulmicort) 0.5 MG/2ML nebulizer solution Indications: Chronic maxillary sinusitis Take 2 mL (0.5 mg) by nebulization in the morning. Rinse mouth with water after use to reduce aftertaste and incidence of candidiasis. Do not swallow.. 60 mL 08/20/2023 08/19/2024 Active calcium carbonate 600 mg chewable tablet (11 sources) Start: 09-04-2019 take 1 tablet by mouth three times daily calcium carbonate 600 mg oral tablet, chewable 600 mg = 1 tab(s), Chewed, TID, Refills(s) 0 Start Date: 09/04/19 Status: Ordered Start: 10-21-2018 End: 02-05-2024 Calcium Carbonate (Tums) 300 mg (750 mg) Tablet,Chewable Discontinued 2 TAB PO As Directed as needed for GERD October 20, 2018 11:00pm February 05, 2024 8:43am Start: 10-21-2018 End: 02-05-2024 take 1 tablet by mouth three times daily Calcium Carbonate (Calcium 500) 500 mg calcium (1,250 mg) Tablet,Chewable Discontinued 500 MG PO Three times daily October 20, 2018 11:00pm February 05, 2024 8:43am Calcium Carbonate / vitamin D3 (1 source) calcium carbonate/vitamin D3 (CALCIUM + D ORAL) Take by mouth. Active Calcium with Vitamin D and Minerals oral tablet (6 sources) Start: take 1 tablet by mouth twice daily Calcium with Vitamin D and Minerals oral tablet tab(s), Oral, BID, Refill(s) 0 Start Date: 02/05/24 Status: Ordered cephalexin 500 mg oral capsule (1 source) Cephalosporin Antibacterial Start: End: take 1 capsule by mouth every twelve hours Keflex 500 mg Cap 500 mg = 1 cap(s), Oral, q12hr, Start the morning of procedure, X 1 day(s), # 2 cap(s), Refills(s) 0, [facility]acy: [id number], 158, cm, 02/05/24 11:08:00 EST, Height/Length Dosing, 62, kg, 02/05/24 11:08:00 EST, Weight Dosing Start Date: 02/05/24 Stop Date: 02/06/24 Status: Ordered cetirizine hydrochloride 10 mg oral tablet (20 sources) Histamine-1 Receptor Antagonist Start: End: take 1 tablet by mouth once daily as needed cetirizine (ZyrTEC) 10 MG tablet Indications: Chronic pansinusitis Take 1 tablet (10 mg) by mouth Daily as needed for allergies 90 tablet 3 10/18/2023 10/17/2024 Active Start: 08-15-2023 Zyrtec Daily, Refills(s) 0 Start Date: 08/15/23 Status: Ordered Cetirizine 10 mg cap Take by mouth. Active take 1 tablet by grzegorz once daily cetirizine (ZyrTEC) 10 mg tablet take 1 tablet by mouth once daily if needed for allergies Active cholecalciferol 0.05 mg oral capsule (12 sources) Vitamin D Start: 05-18-2022 take 1 capsule by mouth in the morning RA Vitamin D-3 50 MCG (1999 UT) capsule Take 50 mcg by mouth in the morning. 05/18/2022 Active cholecalciferol, vitamin D3, (D3-1999 ORAL) (1 source) cholecalciferol, vitamin D3, (D3-1999 ORAL) Take by mouth. Active ciprofloxacin 500 mg oral tablet (1 source) Quinolone Antimicrobial Start: 04-07-2024 End: 04-08-2024 Cipro 500 mg Tab 500 mg = 1 tab(s), Oral, q12hr, Start morning of white removal in 1-2 days, X 1 day(s), # 2 tab(s), Refills(s) 0, Pharmacy: [id number], 158, cm, 03/24/24 11:38:00 EST, Height/Length Dosing, 75.5, kg, 03/24/24 11:38:00 EST, Weight Dosing Start Date: 04/07/24 Stop Date: 04/08/24 Status: Ordered clobetasol propionate 0.0005 mg/mg topical ointment (2 sources) Corticosteroid Start: 04-16-2024 End: 04-23-2024 clobetasol (Temovate) 0.05 % ointment Indications: Lichen sclerosus et atrophicus Apply topically 2 (two) times a day for 7 days 30 g 2 04/16/2024 04/23/2024 Active codeine phosphate/guaifenesin (CODEINE-GUAIFENESIN ORAL) (1 source) codeine phosphate/guaifen esin (CODEINE-GUAIFENE SIN ORAL) Take by mouth. Active enteric contrast (will be provided with radiology test) (1 source) Start: 10-31-2023 End: 11-01-2023 enteric contrast (will be provided with radiology test) For CT ENTEROGRAPHY W IVCON order Administer, As Directed One Time Only, via Oral, Rectal, both Oral and Rectal, Enteric Tube, Stoma or Indwelling Catheter, Enteric Contrast as designated per enteric contrast guidelines. 1 Each 0 10/31/2023 11/01/2023 Active [id number] 0.3 ml EPINEPHrine 1 mg/ml auto-injector (20 sources) alpha-Adrenergic Agonist, beta-Adrenergic Agonist, Catecholamine Start: 02-05-2024 Epinephrine 0.3 mg/0.3 mL auto-injector Active 0.3 MG IM every 5 to 15 minutes as needed February 05, 2024 12:00am do not exceed 3 doses per episode Start: 09-04-2019 inject 0.3 mg by int ramuscular injection once as needed EpiPen 2-Giovani 0.3 [...] needed. Active EPINEPHrine 0.3 MG/0.3ML Injection Active famotidine 20 mg oral tablet (20 sources) Histamine-2 Receptor Antagonist Start: 01-27-2024 End: 02-05-2024 Famotidine 20 mg tablet Discontinued 0 .ROUTE .COMPLEX 90 January 27, 2024 12:59pm February 05, 2024 9:02am TAKE 1 TABLET AT BEDTIME Start: 02-20-2023 famotidine (Pe pcid) 20 MG tablet Take by mouth 02/20/2023 Active Start: 12-23-2022 End: 01-27-2024 take 1 tablet by mouth once daily at bedtime Famotidine 20 mg tablet Active 20 MG PO Daily at bedtime 90 90 February 05, 2024 9:02am fluocinonide 0.5 mg/ml topical solution (11 sources) Corticosteroid Start: 03-07-2023 fluocinonide ( Lidex) 0.05 % external solution Indications: Pruritus Apply to affected areas on the scalp, up to twice a day when flared, 30 day supply 60 mL 11 03/07/2023 Active fluticasone propionate 0.093 mg/actuat metered dose nasal spray (20 sources) Corticosteroid Start: 02-05-2024 Xhance 93 mcg/ inh nasal spray mcg, spray(s), BID, Refill(s) 0 Start Date: 02/05/24 Status: Ordered Start: 02-05-2024 take 1 spray(s) nasa l route twice daily Fluticasone Propionate (Xhance) 93 mcg/actuation aerosol breath activated Active 1 SPRAY INTRANASAL Twice daily February 05, 2024 12:00am into each nostril Start: 09-23-2023 End: 12-30-2023 take 1 spray(s) [...] Start: 09-02-2019 fluticasone 0. 05 mg/inh Nasal [place] 2 spray(s), Nasal, Daily, Refill(s) 0 Start Date: 09/02/19 Status: Ordered Start: 10-21-2018 End: 05-23-2023 Fluticasone Propionate 50 mcg/actuation spray,suspension Active 2 SPRAY INTRANASAL Daily May 23, 2023 4:44pm fluticasone prop ionate (XHANCE) 93 mcg/actuation nasal spray Use in each nostril two times a day. Active fluticasone prop ionate (Xhance) 93 mcg/actuation aerosol breath activated Administer into affected nostril(s). Active take 2 spray(s) nasa l route [...] Furoate-Vilanterol (20 sources) Corticosteroid, beta2-Adrenergic Agonist Start: 02-05-2024 Fluticasone Furoate-Vilanter ol (Breo Ellipta) 200-25 mcg/dose blister with device Active 1 INH INHALATION Daily February 05, 2024 12:00am Start: 01-25-2023 Breo Ellipta 2 00-25 mcg/dose inhaler 01/25/2023 Active Start: 10-21-2018 End: 02-05-2024 take 1 puff(s) by inhalation once daily Fluticasone Furoate-Vilanterol (Breo Ellipta) 200-25 mcg/dose blister with device Discontinued 1 PUFF INHALATION Daily October 20, 2018 11:00pm February 05, 2024 8:44am Start: 10-21-2018 take 1 puff(s) by in halation once daily Fluticasone Furoate-Vilanterol (Breo Ellipta) 200-25 mcg/dose blister with device [...] Inhalation daily Active fluticasone 0.05 mg/inh Nasal [place] (17 sources) Start: 09-02-2019 fluticasone 0.05 mg/inh Nasal [place] 2 spray(s), Nasal, Daily, Refill(s) 0 Start Date: 09/02/19 Status: Ordered Hair, Skin & Nails 5 mg oral capsule (6 sources) Start: 02-05-2024 take 1 mg by mouth once daily Hair, Skin & Nails 5 mg oral capsule mg, cap(s), Oral, Daily, Refill(s) 0 Start Date: 02/05/24 Status: Ordered ibuprofen 200 mg oral capsule [...] a day for 5 days Mar, Active levothyroxine sodium 0.1 mg oral tablet (20 sources) l-Thyroxine Start: 03-24-2024 take 1 tablet by mouth once daily levothyroxine 100 mcg (0.1 mg) Tab 100 mcg = 1 tab(s), Oral, Daily, Refills(s) 0, Thyroid Start Date: 03/24/24 Status: Ordered Start: 01-27-2024 Levothyroxine 100 mcg tablet Active 0 .ROUTE .COMPLEX 90 January 27, 2024 12:59pm TAKE 1 TABLET DAILY ON AN EMPTY STOMACH (REPLACING 88MCG) Start: 09-04-2019 take 1 tablet by grzegorz th once daily levothyroxine 88 mcg (0.088 mg) Tab 88 microgram = 1 tab(s), Oral, Daily, Refills(s) 0, Thyroid Start Date: 09/04/19 Status: Ordered Start: 12-08-2007 End: 01-27-2024 take 1 tablet by mouth once daily Levothyroxine 100 mcg Tablet Discontinued 100 MCG PO Daily October 20, 2018 11:00pm January 27, 2024 1:00pm levothyroxine (S ynthroid, Levoxyl) 88 MCG tablet 1 (one) time each day at the same time Active levothyroxine (S ynthroid, Levoxyl) 100 mcg tablet once every 24 hours. Active take 1 tablet by grzegorz th once daily Levothyroxine Sodium 100 MCG TAKE 1 TABLET DAILY ON AN EMPTY STOMACH. (REPLACING 88MCG) Orally Once a day for 90 days Active Levothyroxine So dium Active 12 hr loratadine 5 mg / pseudoephedrine sulfate 120 mg extended release oral tablet (20 sources) alpha-Adrenergic Agonist Start: 04-25-2022 take 5-120 mg by mouth twice daily as needed Claritin-D 12 Hour 5-120 MG 1 tablet Orally two times daily, as needed Apr, Active Start: 09-04-2019 take 1 tablet by grzegorz th once daily Claritin-D 5 mg-120 mg Tab-ER 1 tab(s), Oral, Daily, Refill(s) 0 Start Date: 09/04/19 Status: Ordered Start: 10-21-2018 End: 02-05-2024 take 1 tablet by mouth once daily, then take 1 tablet by mouth every twenty-four hours Loratadine-Pseudoephedrine (Claritin-D 24 Hour) 10-240 mg Tablet Extended Release 24 Hr Discontinued 1 TAB PO Daily October 20, 2018 11:00pm February 05, 2024 8:44am End: 04-30-2024 take 1 tablet by mouth once in the morning, then take 1 tablet by mouth every twelve hours at bedtime loratadine-pseudoephedrine ER (Claritin-D 12-hour) 5-120 MG 12 hr tablet Take 1 tablet by mouth in the morning and 1 tablet before bedtime. Do not crush, chew, or split.. 04/30/2024 Discontinued LORazepam 0.5 mg oral tablet (15 sources) Benzodiazepine Start: 01-25-2023 LORazepam 0.5 MG 1/2 - 1 Orally Once a day as needed for anxiety for 30 days Jan, Active metoclopramide 10 mg oral tablet (12 sources) Dopamine-2 Receptor Antagonist Start: 07-12-2023 take [...] mg/mg vaginal gel (20 sources) Nitroimidazole Antimicrobial Start: 02-05-2024 Metronidazole 0.75 % (37.5mg/5 gram) gel Active 1 APPLICATOR VAGINAL Twice daily February 05, 2024 12:00am metroNIDAZOLE (M ETROGEL) 0.75 % Vaginal Gel Use 1 Applicatorful [...] 30 tab(s), Refills(s) 6, [facility]: [id number], 158, cm, 12/01/21 9:55:00 EDT, Height/Length Dosing, 68, kg, 12/01/21 9:55:00 EDT, Weight Dosing Start Date: 12/01/21 Status: Ordered montelukast 10 mg oral tablet (20 sources) Leukotriene Receptor Antagonist Start: 02-05-2024 take 1 tablet by mouth once daily in the evening montelukast 10 mg Tab 10 mg = 1 tab(s), Oral, qPM, # 90 tab(s), Refills(s) 0, Asthma Start Date: 02/05/24 Status: Ordered Start: 12-26-2022 End: 05-23-2023 montelukast (Singulair) 10 m g tablet Daily 05/23/2023 Active Multi Vitamins oral tablet (6 sources) Start: 02-05-2024 Multi Vitamins oral tablet 1 tab(s), Oral, Daily, 30 tab(s), Refill(s) 0 Start Date: 02/05/24 Status: Ordered mv-min/iron/folic/c alcium/vitK (WOMEN'S MULTIVITAMIN ORAL) (1 source) mv-min/iron/foli c/c alcium/vitK (WOMEN'S MULTIVITAMIN ORAL) Take by mouth. Active nitrofurantoin, macrocrystals 100 mg oral capsule (2 sources) Nitrofuran Antibacterial Start: 02-05-2024 take 1 capsule by mouth once daily at bedtime Nitrofurantoin Macrocrystal 100 mg capsule Active 100 MG PO Daily at bedtime February 05, 2024 12:00am after intercourse nitrofurantoin m acrocrystal (MACRODANTIN) 100 mg capsule 100 mg by ORAL/FEEDING TUBE route. Active 12 hr orphenadrine citrate 100 mg extended release oral tablet (7 sources) Muscle Relaxant Start: 02-06-2016 orphenadrine E R (NORFLEX) 100 mg tablet Two tablets daily as needed 40 tablet 0 02/06/2016 Active orphenadrine compounding powder (6 sources) Start: 02-05-2024 orphenadrine c ompounding powder PRN Migraine headache, Refills(s) 0 Start Date: 02/05/24 Status: Ordered Start: 02-05-2024 orphenadrine c ompounding powder Refills(s) 0 Start Date: 02/05/24 Status: Ordered oxybutynin chloride 5 mg oral tablet (3 sources) Cholinergic Muscarinic Antagonist Start: 04-07-2024 take 1 tablet by mouth three times daily as needed for muscle spasms oxybutynin 5 mg Tab 5 mg = 1 tab(s), Oral, TID, PRN bladder spasms, # 30 tab(s), Refills(s) 0, Pharmacy: [id number], 158, cm, 03/24/24 11:38:00 EST, Height/Length Dosing, 75.5, kg, 03/24/24 11:38:00 EST, Weight Dosing Start Date: 04/07/24 Status: Ordered pain off aspirin (1 source) Start: 04-13-2021 pain off aspirin pain off aspirin Start Date: 04/13/21 Status: Ordered pantoprazole 40 mg delayed release oral tablet (20 sources) Proton Pump Inhibitor Start: 12-11-2019 End: 01-27-2024 take 1 tablet by mouth in the [...] by mouth two times a day. Active Pantoprazole 40 mg tablet,delayed release (DR/EC) (1 source) Start: 01-27-2024 Pantoprazole 4 0 mg tablet,delayed release (DR/EC) Active 0 .ROUTE .COMPLEX 90 January 27, 2024 12:59pm TAKE 1 TABLET DAILY ON AN EMPTY STOMACH FOLLOWED IN 30 MINUTES BY BREAKFAST polyethylene glycol 3350 969933 mg / potassium chloride 2970 mg / sodium bicarbonate 6740 mg / sodium chloride 5860 mg / sodium sulfate 21621 mg powder for oral solution (1 source) Osmotic Laxative Start: 12-27-2023 peg 3350-Elec trolytes (GOLYTELY) 236-22.74-6.74 -5.86 gram suspension Indications: Iron [...] polysaccharide iron complex 150 mg oral capsule (20 sources) Start: 02-05-2024 Polysaccharide Iron Complex (Ferrex 150) 150 mg iron capsule Active 150 MG PO Daily February 05, 2024 12:00am Start: 03-08-2023 take 150 mg by mouth every other day Ferrex-150 150 mg, Oral, Every other day, Refills(s) 0, Prophylaxis Start Date: 05/22/23 Status: Ordered predniSONE 20 mg oral tablet (20 sources) Start: 06-21-2023 End: 04-30-2024 take 1 tablet by mouth once daily predniSONE (Deltasone) 20 MG tablet Take 20 mg by mouth Daily 06/21/2023 04/30/2024 Discontinued Start: 06-21-2023 End: 02-05-2024 Prednisone 20 mg tablet Disc ontinued 20 MG PO As Directed June 20, 2023 11:00pm February 05, 2024 8:45am 1 tab tid w/ food x 3 [...] Active ProAir HFA 90 mcg/inh inhalation aerosol (17 sources) Start: 09-02-2019 take 2 puff(s) by inhalation every four hours ProAir HFA 90 mcg/inh inhalation aerosol 2 puff(s), Inhalation, q4hr Shortness of breath or wheezing, Refill(s) 0 Start Date: 09/02/19 Status: Ordered Trelegy Ellipta (10 sources) Start: 05-14-2023 Trelegy [...] days Feb, Active vit A/vit C/biotin/zinc/yazmin er (TKEQ-DOES-ROFX,VIT A,C-BIOTIN, ORAL) (1 source) vit A/vit C/biot in/zinc/copper ([id number],VIT A,C-BIOTIN, ORAL) Take by mouth. Active Vitamin D3 (16 sources) Start: 05-14-2023 Vitamin D3 Oral, Daily, Refills(s) 0, Prophylaxis Start Date: 05/14/23 Status: Ordered Start: 05-14-2023 Vitamin D3 Ref ills(s) 0 Start Date: 05/14/23 Status: Ordered Completed/Discontinued Medications Medication Drug Class(es) Dates Sig (Normalized) Sig (Original) acetaminophen 250 mg / aspirin 250 mg / caffeine 65 mg oral tablet (5 sources) Platelet Aggregation Inhibitor, Nonsteroidal Anti-inflammatory Drug, Central Nervous System Stimulant, Methylxanthine Start: 10-21-2018 End: 02-05-2024 Aspirin-Acetaminop hen-Caffeine (Pain-Off) 250-250-65 mg Tablet Discontinued 2 TAB PO As Directed as needed for Headache October 20, 2018 11:00pm February 05, 2024 8:42am acetaminophen 300 mg / butalbital 50 mg / caffeine 40 mg oral capsule (8 sources) Barbiturate, Central Nervous System Stimulant, Methylxanthine [...] a day for 5 day(s) Oct, Not-Taking/PRN benazepril hydrochloride 10 mg oral tablet (20 sources) Angiotensin Converting Enzyme Inhibitor Start: 10-21-2018 End: 02-05-2024 take 1 tablet by mouth once daily Benazepril 10 mg tablet Discontinued 10 MG PO Daily October 20, 2018 11:00pm February 05, 2024 8:42am benzonatate 100 mg oral capsule (18 sources) [...] as needed for 90 days Apr, Active codeine phosphate 2 mg/ml / guaiFENesin 20 mg/ml oral solution (20 sources) Opioid Agonist Start: 08-09-2023 End: 02-05-2024 take 1 mL by mouth every six hours as needed for cough Codeine-Guaifenesin 10-100 mg/5 mL liquid Discontinued 5 ML PO Every 6 hours as needed for cough 200 10 August 09, 2023 3:54pm February 05, 2024 8:43am Start: 06-21-2023 End: 04-30-2024 take 5 mL by mouth three times daily as needed guaiFENesin-codeine (Robitussin-AC) 100-10 MG/5ML syrup Take 5 mL by mouth 3 (three) times a day as needed 06/21/2023 04/30/2024 Discontinued Start: 06-21-2023 codeine-guaife nesin (Robitussin-AC) 10-100 mg/5 mL syrup Every 6 hours 06/21/2023 Active Start: 06-19-2023 End: 08-09-2023 take 1 mL by mouth every six hours as needed for cough Codeine-Guaifenesin 10-100 mg/5 mL liquid Discontinued 5 ML PO Every 6 hours as needed for cough 200 June 18, 2023 11:00pm August 09, 2023 12:02pm Start: 06-19-2023 End: 08-09-2023 take 1 mL [...] (20 sources) Calcineurin Inhibitor Immunosuppressant Start: 10-21-2018 End: 02-05-2024 take 1 drop(s) into the eye(s) twice daily Cyclosporine (Restasis) 0.05 % Dropperette Discontinued 1 DROPS OPHTHALMIC Twice daily October 20, 2018 11:00pm February 05, 2024 8:43am End: 12-27-2023 take 1 drop(s) into the eye(s) twice daily cycloSPORINE (RESTASIS) 0.05 % ophthalmic emulsion 1 Drop twice daily. 12/27/2023 Discontinued (Other) doxycycline hyclate 100 mg oral capsule (14 sources) Tetracycline-class Drug Start: 06-21-2023 End: 02-05-2024 take 1 capsule by mouth twice daily Doxycycline Hyclate 100 mg capsule Discontinued 100 MG PO Twice daily 04 01August 19, 2023 11:00pm February 05, 2024 8:43am take 1 tablet by mouth in the mo rning doxycycline (Adoxa) 100 MG tablet Take 100 mg by mouth in the morning and 100 mg before bedtime. Take with a full glass of water and do not lie down for at least 30 minutes after. Active estradiol 0.1 mg/ml vaginal cream (20 sources) Estrogen Start: 02-05-2024 estradiol 0.1 mg/g Vag Crm See Instructions, 42.5 gm, Refill(s) 0, apply pea sized amount to urethra 2x/wk, [facility], 158, cm, 02/05/24 11:08:00 EST, Height/Length Dosing, 62, kg, 02/05/24 11:08:00 EST, Weight Dosing Start Date: 02/05/24 Status: Ordered Start: 02-05-2024 Estradiol 0.01 % (0.1 mg/gram) cream Active 1 APPLICATOR VAGINAL Twice daily February 05, 2024 12:00am Start: 02-20-2023 estradiol (Est race) 0.1 MG/GM vaginal cream See Instructions, 42.5 gm, Refill(s) 0, apply pea sized amount to urethra 2x/wk, [facility], 158, cm, 02/20/23 8:48:00 EST, Height/Length Dosing, 68.5, kg, 02/20/23 8:48:00 EST, Weight Dosing 02/20/2023 Active Start: 02-20-2023 estradiol 0.1 mg/g Vag Crm See Instructions, 42.5 gm, Refill(s) 0, apply pea sized amount to urethra 2x/wk, [facility], 158, cm, 02/20/23 8:48:00 EST, Height/Length Dosing, 68.5, kg, 02/20/23 8:48:00 EST, Weight Dosing Start Date: 02/20/23 Status: Ordered Start: 04-13-2021 estradiol 0.1 mg/g vaginal cream See Instructions, Apply pea sized amount to external urethral 3 times a week for 2 weeks (at bedtime), then twice a week after for maintenance, # 42.5 gm, Refills(s) 1, Pharmacy: [address], 158, cm, 04/13/21 9:47:00 EST, Height/Length Do... Start Date: 04/13/21 Status: Ordered Start: 10-21-2018 End: 02-05-2024 Estradiol 10 mcg tablet Disc ontinued TABLET October 20, 2018 11:00pm October 21, 2018 2:20pm Estradiol (VAGIF EM) 10 mcg tab vaginal tablet Use 10 mcg vaginally once daily. Active fluconazole 150 mg oral tablet (7 sources) Azole Antifungal End: 12-27-2023 take 1 tablet by mouth once fluconazole (DIFLUCAN) 150 mg tablet Take 150 mg by mouth one time only. 12/27/2023 Discontinued (Other) nabumetone 750 mg oral tablet (5 sources) Nonsteroidal Anti-inflammatory Drug Start: 10-21-2018 End: 02-05-2024 take 1 tablet by mouth once daily Nabumetone 750 mg Tablet Discontinued 1500 MG PO Daily October 20, 2018 11:00pm February 05, 2024 8:45am Start: 10-21-2018 take 1500 mg by mout h once daily Nabumetone Active 1500 MG PO Daily October 21, 2018 12:00am nitrofurantoin, macrocrystals 25 mg / nitrofurantoin, monohydrate 75 mg oral capsule (19 sources) Nitrofuran Antibacterial Start: 12-01-2021 Macrobid 100 mg Cap 100 mg = 1 cap(s), Oral, As Directed, take 1 tablet within 1 hour before or after intercourse to prevent infection., # 30 cap(s), Refills(s) 3, Pharmacy: [facility], 158, cm, 02/20/23 8:48:00 EST, Height/Length Dosing, 68.5, kg, 02/20/23 8:48:00 EST, Weight Dosing Start Date: 02/20/23 Status: Ordered omeprazole 40 mg delayed release oral capsule (20 sources) Proton Pump Inhibitor Start: 10-21-2018 End: 02-05-2024 take 1 capsule by mouth once daily Omeprazole 40 mg Capsule,Delayed Release(Dr/Ec) Discontinued 40 MG PO Daily October 20, 2018 11:00pm February 05, 2024 8:45am psyllium 520 mg oral capsule (5 sources) Start: 10-21-2018 End: 02-05-2024 Psyllium Husk (Metamucil) 0.52 gram Capsule Discontinued 1 CAP PO Twice daily October 20, 2018 11:00pm February 05, 2024 8:46am sucralfate 1000 mg oral tablet (1 source) Aluminum Complex Start: 12-11-2019 sucralfate tab 1 gram = 1 tab(s), Oral, QIDACHS, [...] unspecified, unspecified status] Onset: 09-28-19 16 Cataract (20 sources) Bilateral cataracts; Translations: [Artificial [...] deficiency anemias Episodic Deficiency and other anemia (2 sources) Iron deficiency anemia; Translations: [Iron deficiency anemia, unspecified] Onset: 05-14-19 Episodic Deficiency and other anemia (2 sources) Anemia; Translations: [Anemia, unspecified] Onset: 05-29-19 Episodic Deficiency and other anemia (1 source) Iron deficiency anemia, unspecified; Translations: [Iron deficiency anemia, unspecified] 02-05-2024 Episodic Diseases of white blood cells (10 sources) Familial eosinophilia; 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 EHR Cmte Fracture of lower limb (14 sources) Displaced fracture of fifth metatarsal bone, right foot, subsequent encounter for fracture with routine healing; Translations: [Displaced fracture of fifth metatarsal bone, right foot, initial encounter for closed fracture] Onset: 03-13-20 22 Episodic Gastritis and duodenitis (3 sources) Gastritis; Translations: [Other gastritis without bleeding] Onset: 05-14-19 24 Episodic Genitourinary symptoms and ill-defined conditions (20 sources) Mixed incontinence; Translations: [Incontinence] Onset: 12-02-19 Chronic Headache; including migraine (20 sources) Tension-type headache; Translations: [Tension-type headache, unspecified, not intractable] Onset: 01-12-20 16 Resolved : 06-27-19 24 08-31-2019 Chronic Comment on above: Problem List clean-u p per request of Phys. EHR Cmte Hemorrhoids (2 sources) Hemorrhoids; Translations: [Other hemorrhoids] Onset: 05-30-19 Episodic Inflammation; infection of eye (except that caused by tuberculosis or sexually transmitteddisease) (12 sources) Keratoconjunctivitis sicca; Translations: [Keratoconjunctivitis sicca, not specified as Sjogren's, bilateral] Onset: 01-15-20 23 01-14-2023 Chronic Intestinal obstruction without hernia (6 sources) Stricture of intestine; Translations: [Other intestinal obstruction unspecified as to partial versus complete obstruction] Onset: 08-15-19 Episodic Joint disorders and dislocations; trauma-related (2 sources) Disorder of right patellofemoral joint; Translations: [Patellofemoral disorders, right knee] Onset: 02-22-20 18 Chronic Miscellaneous mental health disorders (2 sources) Primary insomnia; Translations: [Primary insomnia] Chronic Nausea and vomiting (4 sources) Nausea; Translations: [Nausea] Onset: 01-12-20 16 Episodic Neoplasms of unspecified nature or uncertain behavior (2 sources) 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; Translations: [Neoplasm of unspecified behavior of other genitourinary organ] Onset: 02-24-20 24 Episodic Nonmalignant breast conditions (10 sources) Fibrocystic disease of breast; Translations: [Diffuse cystic mastopathy of unspecified breast] Onset: 06-27-19 24 06-27-2023 Chronic Nutritional deficiencies (16 sources) Vitamin D deficiency; Translations: [Vitamin D deficiency, unspecified] Chronic Osteoarthritis (20 sources) Arthritis of acromioclavicular joint; Translations: [Primary osteoarthritis, right shoulder] Onset: 02-05-20 17 04-12-2021 Chronic Osteoporosis (20 sources) Age-related osteoporosis without current pathological fracture; Translations: [Primary osteoporosis] Onset: 04-09-19 Chronic Other acquired deformities (10 sources) Equinus contracture of the ankle; Translations: [Contracture, right ankle] Onset: 06-27-19 24 06-27-2023 Chronic Other aftercare (1 source) halfway (current) use of aspirin; Translations: [DETENTION CURRENT USE OF ASPIRIN] Onset: 04-09-19 Episodic Other aftercare (3 sources) Other nursing home (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 therapy; Translations: [OTH DETENTION CURRENT DRUG THERAPY] Onset: 03-13-20 Episodic Other aftercare (1 source) Long-term current use of drug therapy; Translations: [Other continuous churn buttermaker (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 therapy] Episodic Other bone disease [...] Episodic Other diseases of bladder and urethra (3 sources) Urethral intrinsic sphincter deficiency; Translations: [Intrinsic sphincter deficiency (ISD)] Onset: 02-24-20 Episodic Other diseases of kidney and ureters (1 source) Vesicoureteric reflux; Translations: [Vesicoureteral-reflux, unspecified] Onset: 05-14-19 Episodic Other disorders of stomach and duodenum (20 sources) Stricture of duodenum; Translations: [Obstruction of [...] of falling] Episodic Other lower respiratory disease (10 sources) Post-inflammatory pulmonary fibrosis; Translations: [Pulmonary fibrosis, [...] (1 source) Overweight; Translations: [Overweight] Episodic Other skin disorders (12 sources) Lichen sclerosus et atrophicus; Translations: [Circumscribed scleroderma] Onset: 07-25-19 24 07-25-2023 Chronic Other upper respiratory disease (20 sources) Allergic rhinitis due to pollen; Translations: [Allergic rhinitis due to pollen] Onset: 06-27-19 24 08-31-2019 Chronic Other upper respiratory disease (2 sources) Seasonal allergic rhinitis; Translations: [Other seasonal allergic rhinitis] Onset: 06-12-19 18 Chronic Other upper respiratory disease (12 sources) Allergic rhinitis; Translations: [Allergic rhinitis, unspecified] 12-29-2023 Chronic Other upper respiratory disease (1 source) Allergic rhinitis, unspecified; Translations: [Allergic rhinitis, unspecified] Chronic Other upper respiratory disease (1 source) Allergic rhinitis due to pollen Chronic Other upper respiratory disease (3 sources) Other allergic rhinitis Chronic Other upper respiratory disease (2 sources) Dysphonia; Translations: [Dysphonia] Episodic Other upper respiratory infections (20 sources) Chronic maxillary sinusitis; Translations: [Chronic maxillary sinusitis] Onset: 06-27-19 24 06-27-2023 Chronic Other upper respiratory infections (8 sources) Acute maxillary sinusitis; Translations: [Acute recurrent maxillary sinusitis] Onset: 12-18-19 Episodic Otitis media and related conditions (4 sources) Eustachian tube disorder; Translations: [Other specified disorders of Eustachian tube, unspecified ear] Episodic Regional enteritis and ulcerative colitis (10 sources) Ulcerative colitis; Translations: [Ulcerative colitis, unspecified, without complications] Onset: 03-18-19 08 06-27-2023 Chronic Residual codes; unclassified (1 source) Acquired absence of other specified parts of digestive tract; Translations: [ACQ ABSENCE OTH PART DIGESTV TRACT] Onset: 04-09-19 Episodic Residual codes; unclassified (1 source) Asymptomatic menopausal state Episodic Residual codes; unclassified (2 sources) Postmenopausal state; Translations: [Asymptomatic menopausal state] 04-16-2024 Episodic Spondylosis; intervertebral disc disorders; other back [...] hypothyroidism; 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] Onset: 01-30-2008-31-2019 Chronic Comment on above: Problem List clean-u p per request of Phys. EHR Cmte Unclassified (18 sources) Asymptomatic microscopic hematuria 12-01-2021 Unclassified (18 sources) Finding of sensation of bladder 04-13-2021 [...] ankle and foot] Onset: 11-19-19 16 Unclassified (9 sources) Stricture of small intestine 08-15-2023 Unclassified (2 sources) New Patient Visit; Translations: [New Patient Visit] Onset: 09-14-19 24 Unclassified (1 source) Lesion of urethra 04-22-2024 Past or Other Problems Problem Classification Problem Date Documented Date Episodic/Chronic Abdominal pain (20 sources) Epigastric pain; Translations: [Epigastric pain] Onset: [...] that caused by tuberculosis or sexually transmitteddisease) (12 sources) 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; Translations: [Unspecified blepharitis right eye, upper and lower eyelids] Onset: 3 01-14-2023 Episodic Menopausal disorders (1 source) Hormone replacement therapy; Translations: [HORMONE REPLACEMENT THERAPY] Onset: 2 Episodic Nonspecific chest pain (2 sources) Chest pain; Translations: [Other chest pain] Onset: 7 Episodic Other and unspecified benign neoplasm (20 sources) History of polyp of colon; Translations: [History of colonic polyps] Onset: 4 09-04-2019 Episodic Other bone disease and musculoskeletal deformities (20 sources) Osteopenia; Translations: [Other specified disorders of [...] Onset: 6 Episodic Other connective tissue disease (17 sources) Right achilles tendonitis; Translations: [Achilles tendinitis, right leg] Onset: 7 04-11-2016 Episodic Other diseases of bladder and urethra (20 sources) Urethral caruncle; Translations: [Urethral caruncle] Onset: 2 Episodic Other gastrointestinal disorders (20 sources) Abdominal bloating; Translations: [Abdominal distension (gaseous)] Onset: 4 12-11-2019 Episodic Other gastrointestinal disorders (10 sources) Dysphagia; Translations: [Dysphagia, pharyngoesophageal phase] Onset: 4 06-27-2023 Episodic Other injuries and conditions due to external causes (10 sources) Aspiration into respiratory tract; Translations: [Unspecified foreign body in respiratory tract, part unspecified causing other injury, initial encounter] Onset: 4 07-25-2023 Episodic Other lower respiratory disease (15 sources) Chronic cough; Translations: [Chronic cough] Onset: 4 Episodic Other lower respiratory disease (10 sources) Lung field abnormal; Translations: [Other nonspecific [...] index 28.0-28.9, adult] Onset: 6 Episodic Other screening for suspected conditions (not mental disorders or infectious disease) (20 sources) Encounter for screening mammogram for malignant neoplasm of breast; Translations: [Abnormal findings on diagnostic imaging of skull and head] Onset: 6 Episodic Other skin disorders (2 sources) Disorder of skin and/or subcutaneous tissue; Translations: [Disorder of the skin and subcutaneous tissue, unspecified] Onset: 5 Episodic Other upper respiratory disease (10 sources) Chronic hoarseness; Translations: [Dysphonia] Onset: 4 06-27-2023 Episodic Other upper respiratory disease (10 sources) Stridor; Translations: [Stridor] Onset: 4 06-27-2023 Episodic Residual codes; unclassified (1 source) Family history of malignant neoplasm of breast; Translations: [FAMILY HX MALIG NEOPLASM OF BREAST] Onset: 2 Episodic Residual codes; unclassified (1 source) Family history of malignant neoplasm of other organs or systems; Translations: [FAM HX MALIG NEOPLASM OTH ORGN/SYS] Onset: 2 Episodic Unclassified (1 source) Onset: 4 09-14-2023 Urinary tract infections (20 sources) Urinary tract infectious disease; Translations: [Urinary tract infection, site not specified] Onset: 2 Resolved: 4 Episodic Results Test Name Value Interpretation Reference Range Facility Ambulatory Visit Summaryon 0 04-22-2024 Ambulatory Visit Summary Ambulatory Visi t Summary MUNIRA CHESTER :1950 Visit Date:04/22/2024 Ambulatory Visit Instructions Your Diagnosis Urethral lesion Intrinsic sphincter deficiency (ISD) Urethral caruncle Recurrent UTI Your Care Team Attending Physician - Dewayne VILLEGAS, [place] Primary Care Physician - ANDREA GOLDEN DO This Is Your Medications List estradiol topical (estradiol 0.1 mg/g Vag Crm) nitrofurantoin (Macrobid 100 mg Cap) Contact prescribing physician if questions or concerns albuterol (ProAir HFA 90 mcg/inh inhalation aerosol) alendronate (Fosamax 70 mg Tab) amlodipine (amLODIPine 5 mg Tab) atorvastatin (atorvastatin 10 mg Tab) biotin (Hair, Skin & Nails 5 mg oral capsule) cetirizine (Zyrtec) cholecalciferol (Vitamin D3) epinephrine (EpiPen 2-Giovani) famotidine (famotidine 20 mg Tab) fluticasone nasal (Xhance 93 mcg/inh nasal spray) fluticasone nasal (fluticasone 0.05 mg/inh Nasal [place]) fluticasone-vilanterol (Breo Ellipta 200 mcg-25 mcg/inh inhalation powder) iron polysaccharide (Ferrex-150) levothyroxine (levothyroxine 100 mcg (0.1 mg) Tab) montelukast (montelukast 10 mg Tab) multivitamin (Multi Vitamins oral tablet) multivitamin with minerals (Calcium with Vitamin D and Minerals oral tablet) orphenadrine (orphenadrine compounding powder) oxybutynin (oxybutynin 5 mg Tab) pantoprazole (Pantoprazole [address] Tab) Procedures Performed Cystoscopy (04/07/2024), Colonoscopy (05/22/2023), Esophagogastroduodenoscop y (05/22/2023), Colonoscopy (09/07/2019), EGD - Esophagogastroduodenoscop y (09/07/2019), Colonoscopy (01/16/2015), EGD - Esophagogastroduodenoscop y (01/16/2015), EGD - Esophagogastroduodenoscop y (08/17/2011), EGD - Esophagogastroduodenoscop y (05/17/2011), Laparoscopic cholecystectomy (06/16/2010), Colonoscopy (01/16/2010), Cataracts, section, Dilation and curettage, Foot, Right wrist, Rotator cuff repair, Thyroidectomy, Tubal ligation. Discharge Vitals Heart Rate (Peripheral) 68 Blood Pressure 126/66 Height 158 cm Height 62 in Weight 62 kg Weight 136.686 lb BMI 24.84 What to do next Scheduled Follow-Up Appointments Saturday 7:30 AM EST Where: [facility] Saturday 9:30 AM EDT Where: [facility] You Need to Schedule the Following Appointments Follow Up with Dewayne VILLEGAS, RANDAL Arizmendi, [place] When: Where: Medications What How Much When Why Instructions Unchanged estradiol topical (estradiol 0.1 mg/ g Vag Crm) See instructions apply pea sized amount to urethra 2x/ wk Unchanged nitrofurantoin (Macrobid 100 mg Cap) 1 Capsules By Mouth As Directed take 1 tablet within 1 hour before or after intercourse to prevent infection. Unchanged albuterol (ProAir HFA 90 mcg/ inh inhalation aerosol) 2 Puffs Inhalation Every 4 hours as needed for Shortness of breath or wheezing Contact prescribing physician if questions or concerns Unchanged alendronate (Fosamax 70 mg Tab) 1 Tablets By Mouth Every week Contact prescribing physician if questions or concerns Unchanged amlodipine (amLODIPine 5 mg Tab) 1 Tablets By Mouth Every day Contact prescribing physician if questions or concerns Unchanged atorvastatin (atorvastatin 10 mg Tab) 1 Tablets By Mouth Every day Contact prescribing physician if questions or concerns Unchanged biotin (Hair, Skin & Nails 5 mg oral capsule) By Mouth Every day Contact prescribing physician if questions or concerns Unchanged cetirizine (Zyrtec) Every day Contact prescribing physician if questions or concerns Unchanged cholecalciferol (Vitamin D3) By Mouth Every day Contact prescribing physician if questions or concerns Unchanged epinephrine (EpiPen 2-Giovani) 0.3 Milligram Intramuscular Once as needed for Anaphylaxis Contact prescribing physician if questions or concerns Unchanged famotidine (famotidine 20 mg Tab) By Mouth 2 times a day Contact prescribing physician if questions or concerns Unchanged fluticasone nasal (fluticasone 0.05 mg/ inh Nasal [place]) 2 Sprays Nasal Inhalation Every day Contact prescribing physician if questions or concerns Unchanged fluticasone nasal (Xhance 93 mcg/ inh nasal spray) 2 times a day Contact prescribing physician if questions or concerns Unchanged fluticasone-vilanterol (Breo Ellipta 200 mcg-25 mcg/ inh inhalation powder) 1 Inhalation Contact prescribing physician if questions or concerns Unchanged iron polysaccharide (Ferrex-150) 150 Milligram By Mouth Every other day Contact prescribing physician if questions or concerns Unchanged levothyroxine (levothyroxine 100 mcg (0.1 mg) Tab) 1 Tablets By Mouth Every day Contact prescribing physician if questions or concerns Unchanged montelukast (montelukast 10 mg Tab) 1 Tablets By Mouth Once a day (in the evening) Contact prescribing physician if questions or concerns Unchanged multivitamin (Multi Vitamins oral tablet) 1 Tablets By Mouth Every day Contact prescribing ph (more content not included)... [facility] Urology Office/Clinic Noteon 04-22-2024 Urology Office/Clinic Note Urology Office/Clinic Note Chief Complaint 2 [facility] [place] [facility] review HPI Staff 73yr old female pt here for 2wk f/u and to review path. 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 Previous Dx: mixed incontinence, recurrent uti, urethral caruncle *Macrobid 100mg PRN with intercourse, started estrace cream at last OV pt states frequency of urination has slightly slowed down since procedure Dysuria: _no Incomplete bladder emptying: _no Hematuria: _no Frequency: _q2-3 hrs Urgency: _no Nocturia: _3x Stream: _at times not much output Leaking: _yes Post void dripping: _no Wearing pads/ Depends: _pads Urge incontinence: _yes, mostly in the night Stress incontinence: _yes Incontinence without Sensory Awareness: _no Abdominal pain: _no Flank pain: _no Sexual complaints: _ History of Present Illness Tests reviewed: reviewed UA and path. I have reviewed the previous health record information and history for this patient from Dr. Buchanan I have reviewed and verified the staff HPI to be accurate for this encounter. There have been no associated fever, chills, flank pain, or blood in the urine. Denies any urinary infections since last encounter. Review of Systems PHQ Score Initial [...] See HPI. Physical Exam Vitals & Measurements HR: 68(Peripheral) BP: 126/66 HT: 62 in HT: 158 cm WT: 62 kg WT: 136.686 lb BMI: 24.84 General Appearance: alert , no acute distress, well nourished, well developed female. Assessment/Plan 73 yo female here for follow up to review path from recent urethral biopsy. Reports hx of mesh for uterus, complicated by infection and removed 3 years later. 1. Urethral lesion (N36.9: Urethral disorder, unspecified) S/p cysto 02/24/24 - bladder is normal,Trabeculated Mild (1), Papillary lesions/inflammation posterior urethra/ anterior bladder neck. No other bladder tumors, lesions, stones or foreign bodies. Urine cytology 02/24/24 - negative for high grade. A few clusters of urothelial cells with mild atypia; as post cysto voided urine, low grade papillary urothelial neoplasm can not be excluded. S/p cysto, urethral tumor and urethral caruncle biopsy with fulguration 04/07/24. White removal 04/08/24. Path ~cystitis cystica/glandularis, no malignancy or dysplasia identified. Polypoid urothelial and squamous epithelium with mild chronic active inflammation, compatible with urethral polyp. No malignancy or dysplasia identified. Results discussed with pt. Pt states since surgery she feels she is not voiding as much, slow urine. Prior PVRs have been low. Encouraged pt to push fluids. -Fluids -Monitor for retention 2. Intrinsic sphincter deficiency (ISD) (N36.42: Intrinsic sphincter deficiency (ISD)) BBSQ 20 (23) ROSA MARIA > UUI Tried Myrbetriq without improvement. PVR 01/31/22 - 0 mL 01/2024 - 0 mL Reports hx of mesh for uterus, complicated by infection and removed 3 years later. Would refer to tertiary center for sling given hx of vaginal mesh removal. ISD confirmed 02/24/24. Again we discussed risks/benefits of urethral bulking agent Bulkamid, a non-particulate homogenous hydrogel consisting of 97.5% water and 2.5% polyacrylamide. At 1 year, overall 77-83% success rate is reported; 92% subjectively improved and 66% objectively dry in Bulkamid group vs 100% subjectively cured and 95% dry with TVT. At 7 years, 67.1% of the Bulkamid patients reported feeling cured or improved, 11.1% no change, and 2.3% worsening of incontinence. 19.5% of patients received a subsequent other incontinence procedure. 0% serious complications were reported with Bulkamid vs 9% serious complications with TVT including difficulty emptying bladder, chronic pain, tape protrusion or erosion. Postoperative complications were transient. Prolonged bladder emptying time was reported in 15.3% of patients and urinary tract infection in 3.5%. Risks of requiring straight cath or temporary catheter were discussed. We also discuss Botox to treat UUI. After a long discussion, pt wishes to proceed with Bulkamid. Understands this does not address her urgency -Schedule Bulkamid under MAC. Risks as above 3. 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 Stopped using Estrace cream, states it wasn't working to help with her incontinence. Re started estrace cream last visit (02/05/24) -Cont Estrace cream -See #1 4. Recurrent UTI (N (more content not included)... [facility] Comment on above: Result Comment: Elec tronically Signed By: Asuncion Buchanan MD\.br\Date and Time Signed: 04/22/24 11:55 EST\.br\Electronically Co-Signed By: Ailyn Aranda.melissa\Date and Time Co-Signed: 04/22/24 11:33 EST Surgical Pathology Reporton 04-17-2024 Surgical Pathology Report [address] [place] [address]- Surgical Pathology Report Collected Date/Time: 04/07/2024 10:02 EST Pathologist: Fabiano VILLEGAS PhD, Dwight Parra Received Date/Time: 04/07/2024 10:58 EST Dewayne VILLEGAS, Asuncion Buchanan MD, Asuncion Hightower Surgical Pathology Report - 04/17/2024 09:36 EST - Auth (Verified) Final Diagnosis A: PROXIMAL URETHRA, BIOPSY: - CYSTITIS CYSTICA/GLANDULARIS. - NO MALIGNANCY OR DYSPLASIA IDENTIFIED. B: URETHRAL CARUNCLE, BIOPSY: - POLYPOID UROTHELIAL AND SQUAMOUS EPITHELIUM WITH MILD CHRONIC ACTIVE INFLAMMATION, COMPATIBLE WITH URETHRAL POLYP. - NO MALIGNANCY OR DYSPLASIA IDENTIFIED. (Electronic Signature) Dwight Mario MD PhD 04/17/2024 09:36 Diagnosis Comment A and B. No aberrant CK20 and p53 expression, consistent with rendered diagnosis. Clinical Information Urethral tumor Pre-Op Diagnosis: Urethral tumor Procedure: Cysto with bladder fulguration Post-Op Diagnosis: 1. Urethral tumor 2. Urethral caruncle Specimen(s) Received A.Proximal urethra B.Urethral caruncle Gross Description A: Received in formalin labeled with patient name, number, and proximal urethra are two fragments of padron/pink tissue each measuring 0.1 cm. Specimen is entirely submitted in one cassette. B: Received in formalin labeled with patient name, number, and urethral caruncle; received on a nonadherent dressing pad are two fragments of padron/red/pink tissue each measuring 0.2 cm. Specimen is entirely submitted in one cassette. (DC) DC:[facility] Microscopic Description Microscopic examination performed unless gross only specified. This report was transcribed using voice recognition technology and might contain unintended computerized market research coordinator errors. [facility] Comment on above: Performed By: #### [id number] #### [facility] [address] [place] [id number] Main OR Intraoperative Recor don 04-08-2024 Main OR Intraoperative Record Main OR Intraoperative Record IntraOp Document Type FT Summary Primary Physician: Asuncion Buchanan MD Finalized Date/Time: 04/08/24 08:33:19 Pt. Name: MUNIRA CHESTER Aviva/Sex: 1950 Female Med Rec #: [id number] Physician: Asuncion Buchanan MD Financial #: [id number] Pt. Type: A Room/Bed: [place] [address] Admit/Disch: 04/07/24 07:20:36 - 04/07/24 12:00:00 Institution: Case Times FT Entry 1 Patient Times In Room 04/07/24 09:46:00 Out Room 04/07/24 10:20:00 Procedure Times Start 04/07/24 09:59:00 Stop 04/07/24 10:16:00 Anesthesia Times Start 04/07/24 09:46:00 Stop 04/07/24 10:20:00 Last Modified By: Mary Madera RN 04/07/24 10:21:24 General Comments: 04/08/24 Chart opened to review and send charges LRoth CSFA Case Attendance FT Entry 1 Entry 2 Entry 3 Case Attendee Linnette FULLER, Bravo Buchanan MD, Mary Asif RN Role Performed Anesthesiologist Surgeon - Primary Production Worker - Primary Farm Marketer Time In 04/07/24 09:46:00 04/07/24 09:46:00 04/07/24 09:46:00 Time Out 04/07/24 10:20:00 04/07/24 10:16:00 04/07/24 10:20:00 Procedure CYSTOSCOPY TURB(.) CYSTOSCOPY TURB(.) CYSTOSCOPY TURB(.) Comments DR. CAMACHO SUPERVISING Last Modified By: Mary Madera RN, RN, Leann E Ott RN, Leann E 04/07/24 10:21:25 04/07/24 10:21:25 04/07/24 10:21:25 Entry 4 Entry 5 Case Attendee Sukhjinder RN, CNOR, Luci Valenzuela LPN, Meeta Velazquez Role Performed Staff - Other Scrub - Primary Time In 04/07/24 09:46:00 04/07/24 09:46:00 Time Out 04/07/24 10:20:00 04/07/24 10:20:00 Procedure CYSTOSCOPY TURB(.) CYSTOSCOPY TURB(.) Comments MINDY HANNA STUDENT Last Modified By: Mary Madera RN, RN, Leann E 04/07/24 10:21:25 04/07/24 10:21:25 General Comments: [facility] tech student matt correa also present for this case. 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 Protocols FT Pre-Care Text: Implements protective measures prior to operative or invasive procedure, confirms identity before the operative or invasive procedure, verifies operative procedure, surgical site, and laterality Entry 1 Procedure(s) CYSTOSCOPY TURB(.) Patient Identity Birthday, ID Band Verified (select at Check, Patient least 2): Participation Consents / H and P Anesthesia Consent, Operative Site N/A Verified H&P, Surgery/Procedure Marking Verified Consent Surgical Site Yes Laterality Verified n/a Verified Procedure Verified Yes Correct Patient Yes Position Verified Availability Equipment, Medication Prep Dry n/a Verified (If Applicable) PreOp Antibiotic Yes Time Out Bravo Bhardwaj Given Participants Dewayne Mo MD, Asuncion [place], Mary Madera RN, Missler RN, CNOR, Luci Velazquez, Nicolas ALDRIDGE, Meeta Ramos Time Out Complete 04/07/24 09:58:00 Outcomes Met? Yes Last Modified By: Mary Madera RN 04/07/24 10:10:45 Post-Care Text: The patient is free from signs and symptoms of injury caused by extraneous objects Allergy Information FT Pre-Care Text: Verifies allergies Entry 1 Allergies Reviewed? Yes Allergies Reviewed Self/Patient With Outcomes Met? Yes Last Modified By: Mary Madera RN 04/07/24 10:10:51 Post-Care Text: The patient received appropriate medication(s) safely administered during the perioperative period Surgical Procedures FT Entry 1 Procedure Description Procedure CYSTOSCOPY TURB Modifiers . Surgeon Description CYSTO URETHRAL BIOPSY WITH FULGURATION Primary Procedure Yes Primary Surgeon Asuncion Buchanan MD Start 04/07/24 09:59:00 Stop 04/07/24 10:16:00 Anesthesia Type General Surgical Service Urology Wound Class 2 - Clean-Contaminated Last Modified By: Mary Madera RN 04/07/24 10:21:26 General Case Data FT Pre-Care Text: Classifies surgical wound, implements aseptic technique, initiates traffic control Entry 1 Case Information OR OR 1 FT Case Level Level 3 Wound Class 2 - Clean-Contaminated Specialty Urology ASA Class 3 Preop Diagnosis URTHERAL TUMOR Postop Same As Preop Yes Postop Diagnosis URTHERAL TUMOR Outcomes Met? Yes Last Modified By: Rica Carpenter CST 04/08/24 08:33:16 Post-Care Text: The patient is free from signs and symptoms of infection Skin Assessment (Pre Procedure) FT Pre-Care Text: Implements protective measures to prevent skin/ tissue injury due to thermal or mechanical sources Evaluates for signs and symptoms of physical injury to skin and tissue Entry 1 Skin Integrity Intact, [place], Warm, & Skin Abnormality No Dry Outcomes Met? Yes Last Modified By: Mary Madera RN 04/07/24 10:11:12 Post-Care Text: The patient is free from signs and symptoms of injury caused by extraneous objects Patient Positioning FT Pre-Care Text: Identifies physical alterations that require additional precautions for procedure-specific positioning, verifies presence of prosthetics or corrective devices, positions the patient, evaluates the patient for signs and symptoms of injury as a result of positioning Entry 1 Procedure CYST (more content not included)... [facility] Discharge Instructionson Discharge Instructions Discharge Instruc tions MUNIRA CHESTER :1950 Visit Date:04/07/2024 Inpatient Discharge Instructions Your Care Team Admitting Physician - Asuncion Buchanan MD Referring Physician - Asuncion Buchanan MD Reason for Your Visit URTHERAL TUMOR Your Diagnosis Urethral caruncle Urethral tumor Tests Performed Pathology Tissue Exam -- Results Pending -- Please visit your patient portal for your results or contact your primary care physician. This Is Your Medications List albuterol (ProAir HFA 90 mcg/inh inhalation aerosol) alendronate (Fosamax 70 mg Tab) amlodipine (amLODIPine 5 mg Tab) atorvastatin (atorvastatin 10 mg Tab) biotin (Hair, Skin & Nails 5 mg oral capsule) cetirizine (Zyrtec) cholecalciferol (Vitamin D3) ciprofloxacin (Cipro 500 mg Tab) epinephrine (EpiPen 2-Giovani) estradiol topical (estradiol 0.1 mg/g Vag Crm) famotidine (famotidine 20 mg Tab) fluticasone nasal (Xhance 93 mcg/inh nasal spray) fluticasone nasal (fluticasone 0.05 mg/inh Nasal [place]) fluticasone-vilanterol (Breo Ellipta 200 mcg-25 mcg/inh inhalation powder) iron polysaccharide (Ferrex-150) levothyroxine (levothyroxine 100 mcg (0.1 mg) Tab) montelukast (montelukast 10 mg Tab) multivitamin (Multi Vitamins oral tablet) multivitamin with minerals (Calcium with Vitamin D and Minerals oral tablet) nitrofurantoin (Macrobid 100 mg Cap) orphenadrine (orphenadrine compounding powder) oxybutynin (oxybutynin 5 mg Tab) pantoprazole (Pantoprazole [address] Tab) Procedure History Colonoscopy (05/22/2023), Esophagogastroduodenoscop y (05/22/2023), Colonoscopy (09/07/2019), EGD - Esophagogastroduodenoscop y (09/07/2019), Colonoscopy (01/16/2015), EGD - Esophagogastroduodenoscop y (01/16/2015), EGD - Esophagogastroduodenoscop y (08/17/2011), EGD - Esophagogastroduodenoscop y (05/17/2011), Laparoscopic cholecystectomy (06/16/2010), Colonoscopy (01/16/2010), Cataracts, section, Dilation and curettage, Foot, Right wrist, Rotator cuff repair, Thyroidectomy, Tubal ligation. What to do next Instructions From Your Doctor Event Name Event Result Discharge Activity Ambulate as tolerated, Expect mild pain, Expect minimal amount of drainage and/or bleeding, Activity as tolerated Discharge Restrictions No driving for 24 hrs Discharge Diet(s) Regular Call Your Doctor For Persistent or heavy bleeding, Temperature above 101.5 degrees, Severe pain at the operative site, Persistent vomiting Discharge Instructions Discharge Instructions Previously Scheduled Follow-Up Appointments Saturday 10:45 AM EST With: Dewayne VILLEGAS, Asuncion London Where: [facility] [address] [address]- New Follow Up Appointments after Discharge Follow Up with Asuncion Buchanan When: Comments: Office to call to schedule your follow up: white removal and voiding trial in 1-2 days once urine is clear. Follow up in 1-2 weeks for pathology review. Where: [facility], [place] [address] [address]- [phone] Business (1) Medications What How Much When Why Instructions Next Dose New ciprofloxacin (Cipro 500 mg Tab) 1 Tablets By Mouth Every 12 hours Duration: 1 Days Start morning of white removal in 1-2 days Pickup at [facility] New oxybutynin (oxybutynin 5 mg Tab) 1 Tablets By Mouth 3 times a day as needed for bladder spasms Pickup at [facility] Unchanged albuterol (ProAir HFA 90 mcg/ inh inhalation aerosol) 2 Puffs Inhalation Every 4 hours as needed for Shortness of breath or wheezing Unchanged alendronate (Fosamax 70 mg Tab) 1 Tablets By Mouth Every week Unchanged amlodipine (amLODIPine 5 mg Tab) 1 Tablets By Mouth Every day Unchanged atorvastatin (atorvastatin 10 mg Tab) 1 Tablets By Mouth Every day Unchanged biotin (Hair, Skin & Nails 5 mg oral capsule) By Mouth Every day Unchanged cetirizine (Zyrtec) Every day Unchanged cholecalciferol (Vitamin D3) By Mouth Every day Unchanged epinephrine (EpiPen 2-Giovani) 0.3 Milligram Intramuscular Once as needed for Anaphylaxis Unchanged estradiol topical (estradiol 0.1 mg/ g Vag Crm) See instructions apply pea sized amount to urethra 2x/ wk Unchanged famotidine (famotidine 20 mg Tab) By Mouth 2 times a day Unchanged fluticasone nasal (fluticasone 0.05 mg/ inh Nasal [place]) 2 Sprays Nasal Inhalation Every day Unchanged fluticasone nasal (Xhance 93 mcg/ inh nasal spray) 2 times a day Unchanged fluticasone-vilanterol (Breo Ellipta 200 mcg-25 mcg/ inh inhalation powder) 1 Inhalation Unchanged iron polysaccharide (Ferrex-150) 150 Milligram By Mouth Every other day Unchanged levothyroxine (levothyroxine 100 mcg (0.1 mg) Tab) 1 Tablets By Mouth Every day Unchanged montelukast (montelukast 10 mg Tab) 1 Tablets By Mouth Once a day (in the evening) Unchanged multivitamin (Multi Vitamins oral tablet) 1 Tablets By Mouth Every day Unch (more content not included)... [facility] Comment on above: Result Comment: Elec tronically Signed By: Gilbert KILLIAN, Nasrin [place]\.melissa\Date and Time Signed: 04/07/24 10:41 EST Inpatient Patient Summaryon 04-07-2024 Inpatient Patient Summary Inpatient Patient Summary [address] [address] [facility] Clinical Discharge Instructions PERSON INFORMATION Name: MUNIRA CHESTER [facility] CLARE#:[id number] PHYSICIANS Admitting Physician: Asuncion Buchanan MD Attending Physician: Asuncion Buchanan MD PCP: ANDREA GOLDEN DO Discharge Diagnosis: Urethral caruncle; Urethral tumor Comment: PATIENT EDUCATION INFORMATION Instructions: Cook - Post Op INstructions for Bladder Tumor, Bladder Biopsy (CUSTOM) Medication Leaflets: Follow up: With: Address: When: Asuncion Dewayne [address] [place] [address] Ave, [place] [address], [address] [address] [phone] Business (1) Comments: Office to call to schedule your follow up: white removal and voiding trial in 1-2 days once urine is clear. Follow up in 1-2 weeks for pathology review. Type Location Start Finish [facility] [address] [facility] Office Visit [facility] Tariq 04/22/2024 10:45 AM 04/22/2024 11:00 AM Confirmed MEDICATION LIST New Medications [facility], [address] [place], [place] [id number], [phone] ciprofloxacin (Cipro 500 mg Tab) 1 Tablets By Mouth every 12 hours for 1 Days. Start morning of white removal in 1-2 days. Refills: 0. oxybutynin (oxybutynin 5 mg Tab) 1 Tablets By Mouth 3 times a day as needed bladder spasms. Refills: 0. Medications to Continue with No Changes Other Medications albuterol (ProAir HFA 90 mcg/inh inhalation aerosol) 2 Puffs Inhalation every 4 hours as needed Shortness of breath or wheezing. alendronate (Fosamax 70 mg Tab) 1 Tablets By Mouth every week. amlodipine (amLODIPine 5 mg Tab) 1 Tablets By Mouth every day. atorvastatin (atorvastatin 10 mg Tab) 1 Tablets By Mouth every day. biotin (Hair, Skin & Nails 5 mg oral capsule) By Mouth every day. cetirizine (Zyrtec) every day. cholecalciferol (Vitamin D3) By Mouth every day. epinephrine (EpiPen 2-Giovani) 0.3 Milligram Intramuscular Once as needed Anaphylaxis. estradiol topical (estradiol 0.1 mg/g Vag Crm) apply pea sized amount to urethra 2x/wk. Refills: 0. famotidine (famotidine 20 mg Tab) By Mouth 2 times a day. fluticasone nasal (fluticasone 0.05 mg/inh Nasal [place]) 2 Sprays Nasal Inhalation every day. fluticasone nasal (Xhance 93 mcg/inh nasal spray) 2 times a day. fluticasone-vilanterol (Breo Ellipta 200 mcg-25 mcg/inh inhalation powder) 1 Inhalation. iron polysaccharide (Ferrex-150) 150 Milligram By Mouth every other day. levothyroxine (levothyroxine 100 mcg (0.1 mg) Tab) 1 Tablets By Mouth every day. montelukast (montelukast 10 mg Tab) 1 Tablets By Mouth once a day (in the evening). multivitamin (Multi Vitamins oral tablet) 1 Tablets By Mouth every day. multivitamin with minerals (Calcium with Vitamin D and Minerals oral tablet) By Mouth 2 times a day. nitrofurantoin (Macrobid 100 mg Cap) 1 Capsules By Mouth As Directed. take 1 tablet within 1 hour before or after intercourse to prevent infection.. Refills: 3. orphenadrine (orphenadrine compounding powder) as needed Migraine headache. pantoprazole (Pantoprazole [address] Tab) 1 Tablets By Mouth every day. Refills: 1. Comment: Alexand[facility] Main OR PACU I Recordon 03-19 Main OR PACU I Record Main OR PACU I Rec ord PACU Phase I Document Type FT Summary Primary Physician: Asuncion Buchanan MD Finalized Date/Time: 04/07/24 12:46:06 Pt. Name: MUNIRA CHESTER/Sex: 1950 Female Med Rec #: [id number] Physician: Asuncion Buchanan MD Financial #: [id number] Pt. Type: A Room/Bed: Admit/Disch: 04/07/24 07:20:36 - 04/07/24 12:00:00 Institution: Case Times PACU I FT Pre-Care [...] to medications Entry 1 In PACU I 04/07/24 10:23:00 Discharge from PACU 04/07/24 10:53:00 I Outcomes Met? Yes Last Modified By: Pam Harris RN 04/07/24 12:45:54 Post-Care Text: The patient demonstrates knowledge of [...] PACU I FT Entry 1 Start Time 04/07/24 10:23:00 Stop Time 04/07/24 10:53:00 Acuity Level Acuity Level I Last Modified By: Pam Harris RN 04/07/24 12:46:04 Finalized By: Pam Harris RN Document Signatures Signed By: Pam Harris RN 04/07/24 12:46 [facility] Main OR PACU II Recordon Main OR PACU II Record Main OR PACU II R ecord PACU Phase II Document Type FT Summary Primary Physician: Asuncion Buchanan MD Finalized Date/Time: 04/07/24 12:11:40 Pt. Name: ADRIA CHESTERMercy Chicas/Sex: 1950 Female Med Rec #: [id number] Physician: Asuncion Buchanan MD Financial #: [id number] Pt. Type: A Room/Bed: [facility] Admit/Disch: 04/07/24 07:20:36 - Institution: Case Times PACU II FT Pre-Care Text: Identifies barriers to communication and implements measures to provide psychological support and determines knowledge level Develops individualized plan of care, and ensures continuity of care Maintains patient's dignity and privacy, and maintains patient confidentiality Identifies and reports philosophical, cultural, and spiritual beliefs and values Identifies individual values and wishes concerning care administers prescribed antibiotic therapy and immunizing agents as ordered, Evaluates postoperative tissue perfusion Implements thermoregulation measures, and monitors body temperature Evaluates postoperative respiratory status Evaluates postoperative cardiac status Evaluates postoperative neurological status Assesses pain control, collaborated in initiating patient-controlled analgesia and implements alternative methods of pain control Verifies allergies, administers prescribed medications and solutions, evaluates response to medications Entry 1 In PACU II 04/07/24 11:00:00 Discharge from PACU 04/07/24 12:00:00 II Last Modified By: Nasrin Stacy RN 04/07/24 12:11:38 Post-Care Text: The patient demonstrates knowledge of [...] affecting his or her perioperative plan of care. The patient is free from signs and [...] from baseline levels established preoperatively The patient's neurological status is consistent with or improved from baseline levels established preoperatively The patient demonstrates and/or reports adequate pain control throughout the perioperative period The patient received appropriate medication(s), safely administered during the perioperative period Finalized By: Nasrin Stacy RN Document Signatures Signed By: Nasrin Stacy RN 04/07/24 12:11 [facility] Main OR Preoperative Recordo n 04-07-2024 Main OR Preoperative Record Main OR Preoperative Record PreOp Document Type FT Summary Primary Physician: Asuncion Buchanan MD Finalized Date/Time: 04/07/24 10:06:13 Pt. Name: MUNIRA CHESTER /Sex: 1950 Female Med Rec #: [id number] Physician: Asuncion Buchanan MD Financial #: [id number] Pt. Type: A Room/Bed: [facility] Admit/Disch: 04/07/24 07:20:36 - Institution: Case Times PreOp FT Pre-Care Text: Verifies consent for planned procedure, identifies individual values and wishes concerning care, includes family members in perioperative teaching Entry 1 Patient Times. In Pre Surgery 04/07/24 07:25:00 Out Pre Surgery 04/07/24 09:44:00 Outcomes Met? Yes Last Modified By: Mary Madera RN 04/07/24 10:06:11 Post-Care Text: The patient participates in decisions affecting his or her perioperative plan of care Finalized By: Mary Madera RN Document Signatures Signed By: Mary Madera RN 04/07/24 10:06 Normal [facility] Operative Reporton Operative Report Operative Report Patient: MUNIRA CHESTER Age: 73 years Sex: Female : 1950 Associated Diagnoses: None Author: Asuncion Buchanan MD Procedure Procedure Date: 04/07/2024. Confirmed: patient, procedure, site, safety procedures followed. Performed by: Asuncion Buchanan MD, anesthesiologist ([facility]ravo Anglin [facility]). Type of procedure: Cystoscopy, urethral tumor and urethral caruncle biopsy with fulguration. Indication: 73-year-old female with a history of mixed incontinence was found to have friable papillary tumors vs inflammation at the proximal urethra and urethral caruncle on cystoscopy. Urine cytology negative. After discussion of risks and benefits of management options, patient elected to proceed to the OR for cystoscopy, urethral biopsy with fulguration. Risks were discussed including but not limited to bleeding, pain, infection, stricture, recurrence, damage to surrounding structures and need for additional procedures.. Findings: Papillary fronds at the proximal urethra/bladder neck biopsied at the 3, 5 and 7 o'clock positions. Light fulguration. Urethral caruncle with friable small polyps at the 2 and 10 o'clock position, excised and carefully fulgurated.. Procedure tolerated: well. Specimen: sent to pathology, disposed of, 1. Proximal urethra tumor 2. Urethral caruncle. PROCEDURE IN DETAIL: After the risks, benefits, indications, alternatives and expectations of the procedure were reviewed with the patient and informed consent was obtained, the patient was taken to operative suite and placed in the supine position. Sequential compression devices were placed on bilateral lower extremities. General anesthesia LMA was induced and the patient was transitioned to the lithotomy position and prepped and draped in the usual sterile fashion for cystoscopy. A preoperative dose of antibiotics was given. A timeout was observed prior to initiating the procedure. Lidocaine gel was inserted into the urethra and bladder. We began the procedure using a 22.5 Zimbabwean rigid cystoscope, 30 degree lens, and inserted this into the bladder without any issue. We noted findings as above. Once inside the bladder, a cystoscopic examination revealed no bladder tumors, lesions, stones or foreign bodies. Bilateral ureteral orifices were orthotopic and patent. Cold cup biopsy forcep was used to biopsy the papillary fronds at the proximal urethra/bladder neck as described above, sent for pathology. Bugbee monopolar was used for pinpoint electrocautery for any active bleeding. The bladder was drained and the cystoscope removed. Tenotomy scissors were used to excise the irregular appearing portion of the urethral caruncle at the 2 and 10 o'clock position as described above, sent for pathology. Limited electrocautery was used to achieve hemostasis. An 18 Zimbabwean White catheter was inserted into the bladder without difficulty, 15 cc in the balloon. Return of clear fluid. The procedure was then concluded and the patient was awakened from general anesthesia and sent to the PACU in satisfactory condition. CULTURES TAKEN: none PATIENT CONDITION: Stable and extubated PLAN: Follow-up in 1 to 2 days for White removal once there is no further bleeding. Follow-up in 1 to 2 weeks for pathology review.. 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 Urethral caruncle ([id number]-QL N36.2, Discharge, Medical). Diagnosis Urethral tumor (ZSX63-XL D49.59, Discharge, Medical). Urethral caruncle (NZU01-FY N36.2, Discharge, Medical). Normal [facility] Comment on above: Result Comment: Elec tronically Signed By: Asuncion Buchanan MD\.br\Date and Time Signed: 04/07/24 10:46 EST Outpatient Surgery Discharge Instructionon 04-07-2024 Outpatient Surgery Discharge Instruction Outpatient Surgery Discharge Instruction [place] [id number] Patient Discharge Instructions PERSON INFORMATION Name: MUNIRA CHESTER Date of : 1950 Current Date: 04/07/2024 10:38:46 PHYSICIANS Admitting Physician: Asuncion Buchanan MD Discharge Diagnosis: Urethral caruncle; Urethral tumor MUNIRA CHESTER has been given the following list of follow-up instructions, prescriptions, and patient education materials: PATIENT FOLLOW-UP INFORMATION Diet: Regular Discharge Activity: Ambulate as tolerated, Expect mild pain, Expect minimal amount of drainage and/or bleeding, Activity as tolerated Discharge Restrictions: No driving for 24 hrs Call Your Doctor For: Persistent or heavy bleeding, Temperature above 101.5 degrees, Severe pain at the operative site, Persistent vomiting IF UNABLE TO CONTACT YOUR PHYSICIAN AND YOU FEEL IT IS AN EMERGENCY, GO TO THE NEAREST EMERGENCY ROOM OR CALL 911 CATHERINE Mayer [place], have received the attached patient education materials/instructions and have verbalized understanding: May we do a follow up call? Yes No I was present when discharge instructions were given Patient Signature ___ Date Clinican/Nurse Signature Date Follow up: With: Address: When: Asuncion Cedeño [address], [place] [address], [facility] [address] [place] [phone] Business (1) Comments: Office to call to schedule your follow up: white removal and voiding trial in 1-2 days once urine is clear. Follow up in 1-2 weeks for pathology review. Type Location Start [facility]RO Office Visit [facility] BHAVIN Potter 04/22/2024 10:45 AM 04/22/2024 11:00 AM Confirmed Pharmacy Information: You may receive a survey from [employer] asking you to rate your care experience. Your feedback is important and will help us understand what we do well and how we can improve the quality of care we provide to you, your loved ones and our community. It???s an honor to serve you. Thank you for choosing [facility] HERE ARE THE MEDICATION CHANGES THAT OCCURRED DURING YOUR HOSPITAL STAY New Medications [employer] [facility], [address] [place], [place] [phone], [phone] ciprofloxacin (Cipro 500 mg Tab) 1 Tablets By Mouth every 12 hours for 1 Days. Start morning of white removal in 1-2 days. Refills: 0. oxybutynin (oxybutynin 5 mg Tab) 1 Tablets By Mouth 3 times a day as needed bladder spasms. Refills: 0. Medications to Continue with No Changes Other Medications albuterol (ProAir HFA 90 mcg/inh inhalation aerosol) 2 Puffs Inhalation every 4 hours as needed Shortness of breath or wheezing. alendronate (Fosamax 70 mg Tab) 1 Tablets By Mouth every week. amlodipine (amLODIPine 5 mg Tab) 1 Tablets By Mouth every day. atorvastatin (atorvastatin 10 mg Tab) 1 Tablets By Mouth every day. biotin (Hair, Skin & Nails 5 mg oral capsule) By Mouth every day. cetirizine (Zyrtec) every day. cholecalciferol (Vitamin D3) By Mouth every day. epinephrine (EpiPen 2-Giovani) 0.3 Milligram Intramuscular Once as needed Anaphylaxis. estradiol topical (estradiol 0.1 mg/g Vag Crm) apply pea sized amount to urethra 2x/wk. Refills: 0. famotidine (famotidine 20 mg Tab) By Mouth 2 times a day. fluticasone nasal (fluticasone 0.05 mg/inh Nasal [place]) 2 Sprays Nasal Inhalation every day. fluticasone nasal (Xhance 93 mcg/inh nasal spray) 2 times a day. fluticasone-vilanterol (Breo Ellipta 200 mcg-25 mcg/inh inhalation powder) 1 Inhalation. iron polysaccharide (Ferrex-150) 150 Milligram By Mouth every other day. levothyroxine (levothyroxine 100 mcg (0.1 mg) Tab) 1 Tablets By Mouth every day. montelukast (montelukast 10 mg Tab) 1 Tablets By Mouth once a day (in the evening). multivitamin (Multi Vitamins oral tablet) 1 Tablets By Mouth every day. multivitamin with minerals (Calcium with Vitamin D and Minerals oral tablet) By Mouth 2 times a day. nitrofurantoin (Macrobid 100 mg Cap) 1 Capsules By Mouth As Directed. take 1 tablet within 1 hour before or after intercourse to prevent infection.. Refills: 3. orphenadrine (orphenadrine compounding powder) as needed Migraine headache. pantoprazole (Pantoprazole [address] Tab) 1 Tablets By Mouth every day. Refills: 1. PATIENT EDUCATION INFORMATION Instructions: [facility] [place], [place] Post-Operative Instructions *Even though there are no visible incisions, the urethra is quite raw on the inside and you need to follow some instructions to minimize the risks of bleeding and disturbing the area over the next 4 weeks. *The catheter in the (more content not included)... Normal [facility] C Urineon 03-26-2024 Bacteria identified Cx Nom (U) Microbiology PROCEDURE: Urine Culture [R1] SOURCE: U CleanCatch BODY SITE: COLLECTED DATE/TIME: 03/24/2024 07:56 EST RECEIVED DATE/TIME: 03/24/2024 13:41 EST START DATE/TIME: 03/24/2024 13:41 EST FREE TEXT SOURCE: Dewayne VILLEGAS, Asuncion Buchanan MD, Asuncion [place] FINAL REPORTS Final Report [] Verified Date/Time: 03/26/2024 11:19 EST 3,000 cfu/ml Mixed skin contaminants Performing Locations R1: This test was performed at: [facility], [address] [place] [address], [address] , , [facility] Comment on above: Performed By: #### 2 [id number] #### [facility] [address] [place] [id number] XR Chest 2 Viewson XR Chest 2 Views Exam Date/Time: 03/24/2024 08:16 EST Reason for Exam: P.A.T. Report IMPRESSION: NO RADIOGRAPHIC EVIDENCE OF ACUTE INTRATHORACIC PROCESS. EXAMINATION: XR Chest 2 Views HISTORY: Preoperative evaluation TECHNIQUE: Frontal and lateral views of the chest. COMPARISON: CT chest 05/07/2023 FINDINGS: Cardiomediastinal silhouette is within normal limits. No pneumothorax, pleural effusion, or consolidation. Bilateral lung base atelectasis and/or scarring. Degenerative changes of the spine. No acute osseous abnormality. Ordering Provider: Jay Jay Valderrama FINAL REPORT Dictated: 03/25/2024 2:04 pm Bravo Hurst DO Signed (Electronic Signature): 03/25/2024 2:04 pm Signed by: Bravo Hurst DO Transcribed by: SAHIL Technologist: STEPHEN Technical Comments Radiation Dose: Ka,r in mGy = n/a DAP = n/ Normal [facility] BMPon 03-24-2024 Anion gap [Moles/Vol] 12 mmol/L Normal 6-16 [facility] Comment on above: Performed By: #### 2 [id number] #### [facility] [address] [place] [address] Calcium [Mass/Vol] 9.2 mg/dL Normal 8.9-11.1 [facility] Comment on above: Performed By: #### 2 [id number] #### [facility] [address] [place] [address] Chloride [Moles/Vol] 106 mmol/L Normal 101-111 [facility] Comment on above: Performed By: #### 2 [id number] #### [facility] [address] [place] [address] CO2 [Moles/Vol] 27 mmol/L Normal 21-31 [facility] Comment on above: Performed By: #### 2 [id number] #### [facility] [address] [place] [address] Creatinine [Mass/Vol] 0.7 mg/dL Normal 0.5-1.3 [facility] Comment on above: Performed By: #### 2 [id number] #### [facility] [address] [place] [address] Glucose [Mass/Vol] 96 mg/dL Normal 55-199 [facility] Comment on above: Performed By: #### 2 [id number] #### [facility] [address] [place] [address] Potassium [Moles/Vol] 3.5 mmol/L Normal 3.5-5.3 [facility] Comment on above: Performed By: #### 2 [id number] #### [facility] [address] [place] [address] Sodium [Moles/Vol] 141 mmol/L Normal 135-145 [facility] Comment on above: Performed By: #### 2 [id number] #### [facility] [address] [place] [address] Urea nitrogen [Mass/Vol] 14 mg/dL Normal 5-21 [facility] Comment on above: Performed By: #### 2 [id number] #### [facility] [address] [place] [address] Urea nitrogen/Creatinine [Mass ratio] 20 No Units Normal 10-20 [facility] Comment on above: Performed By: #### 2 [id number] #### [facility] [address] [place] [address] CBC w/ Auto Diffon 5 Basophils/100 WBC (Bld) 0.4 % Normal 0.0-2.0 [facility] Comment on above: Performed By: #### 2 [id number] #### [facility] [address] [place] [address] Basophils/Leukocytes Auto (Bld) [Pure # fraction] 0.0 E9/L Normal 0.0-0.2 [facility] Comment on above: Performed By: #### 2 [id number] #### [facility] [address] [place] [address] Eosinophils (Bld) [#/Vol] 0.2 E9/L Normal 0.0-0.5 [facility] Comment on above: Performed By: #### 2 [id number] #### [facility] [address] [place] [address] Eosinophils/100 WBC (Bld) 2.2 % Normal 0.0-8.0 [facility] Comment on above: Performed By: #### 2 [id number] #### [facility] [address] [place] [address] Erythrocyte distribution width (RBC) [Ratio] 14.6 % High 10.9-14.2 [facility] Comment on above: Performed By: #### 2 [id number] #### [facility] [address] [place] [address] Hematocrit (Bld) [Volume fraction] 36.8 % Normal 34.0-46.0 [facility] Comment on above: Performed By: #### 2 [id number] #### [facility] [address] [place] [address] Hemoglobin (Bld) [Mass/Vol] 12.8 g/dL Normal 12.0-16.0 [facility] Comment on above: Performed By: #### 2 [id number] #### [facility] [address] [place] [address] Lymphocytes (Bld) [#/Vol] 1.3 E9/L Normal 1.0-4.0 [facility] Comment on above: Performed By: #### 2 [id number] #### [facility] [address] [place] [address] Lymphocytes/100 WBC (Bld) 12.1 % Low 14.0-50.0 [facility] Comment on above: Performed By: #### 2 [id number] #### [facility] [address] [place] [address] MCH (RBC) [Entitic mass] 31.7 pg Normal 27.0-34.0 [facility] Comment on above: Performed By: #### 2 [id number] #### [facility] [address] [place] [address] MCHC (RBC) [Mass/Vol] 34.7 g/dL Normal 31.4-36.0 [facility] Comment on above: Performed By: #### 2 [id number] #### [facility] [address] [place] [address] MCV (RBC) [Entitic vol] 91.5 fL Normal 80.0-100.0 [facility] Comment on above: Performed By: #### 2 [id number] #### [facility] [address] [place] [address] Monocytes (Bld) [#/Vol] 0.9 E9/L Normal 0.2-1.0 [facility] Comment on above: Performed By: #### 2 [id number] #### [facility] [address] [place] [address] Neutrophils (Bld) [#/Vol] 8.1 E9/L High 2.0-7.5 [facility] Comment on above: Performed By: #### 2 [id number] #### [facility] [address] [place] [address] Neutrophils/100 WBC (Bld) 76.6 % High 36.0-75.0 [facility] Comment on above: Performed By: #### 2 [id number] #### [facility] [address] [place] [address] Platelet mean volume (Bld) [Entitic vol] 8.3 fL Normal 6.4-10.8 [facility] Comment on above: Performed By: #### 2 [id number] #### [facility] [address] [place] [address] Platelets (Bld) [#/Vol] 336.0 E9/L Normal 150. 0-500. 0 [facility] Comment on above: Performed By: #### 2 [id number] #### [facility] [address] [place] [address] RBC (Bld) [#/Vol] 4.0 E12/L Low 4.3-5.9 [facility] Comment on above: Performed By: #### 2 [id number] #### [facility] [address] [place] [address] WBC corrected for nucl RBC Auto (Bld) [#/Vol] 10.6 E9/L Normal 4.0-11.0 [facility] Comment on above: Performed By: #### 2 [id number] #### [facility] [address] [place] [address] CHEMISTRYOrdered By: SYSTEM SYSTEM on 03-24-2024 Anion gap [Moles/Vol] 12 mmol/L Normal 6 - 16 mEq/L [facility] Calcium [Mass/Vol] 9.2 mg/dL Normal 8.9 - 11. 1 mg/dL [facility] Chloride [Moles/Vol] 106 mmol/L Normal 101 - 1 11 mmol/L [facility] CO2 [Moles/Vol] 27 mmol/L Normal 21 - 31 mmol/L [facility] Creatinine [Mass/Vol] 0.7 mg/dL Normal 0.5 - 1.3 mg/dL [facility] eGFR 92 mL/min/1.73 m2 Normal >=59mL/min /1.73 m2 [facility] Glucose [Mass/Vol] 96 mg/dL Normal 55 - 199 mg/dL [facility] Potassium [Moles/Vol] 3.5 mmol/L Normal 3.5 - 5.3 mmol/L [facility] Sodium [Moles/Vol] 141 mmol/L Normal 135 - 145 mmol/L [facility] Urea nitrogen [Mass/Vol] 14 mg/dL Normal 5 - 21 mg/dL [facility] Urea nitrogen/Creatinine [Mass ratio] 20 mg/mg Normal 10 - 20 [facility] COAGULATIONOrdered By: Lisa Brown on 03-24-2024 aPTT Coag (PPP) [Time] 32.8 s Normal 25.1 - 36.5 second(s) [facility] Comment on above: Interpretive Data: P waqaser 15 days - 4 weeks 1 - 5 months 6 - 11 months 1 - 5 years 6 - 10 years 11 - 17 years PTT Mean: 35.4 (27.6-45.6) Mean: 33.5 (24.8-40.7) Mean: 32.4 (25.1-40.7) Mean: 31.6 (24.0-39.2) Mean: 31.6 (26.9-38.7) Mean: 31.0 (24.6-38.4) Pediatric Reference ranges were obtained from a study by Marcelino Pruitt et al. prepared from 1437 samples obtained at 7 different centers using the same coagulation reagent and instrumentation as [facility]. Currently there are no coagulation studies available worldwide for children to 14 days, and no normal ranges. Heparin therapeutic range (represented by Anti-Factor Xa activity of 0.2 - 0.4 U/mL) corresponds to PTT of 56.6 - 109.0 sec. INR Coag (PPP) [Relative time] 1.06 {INR} Invalid Interpretation Code [facility] Comment on above: Interpretive Data: I NR results are specifically intended to assess patients stabilized on long-term Anticoagulation therapy suggested INR s Less Intensive Anticoagulation 2.0 3.0 Conventional Range 3.0 4.5 PT Coag (PPP) [Time] 11.9 s Normal 9.4 - 1 2.5 second(s) [facility] Comment on above: Interpretive Data: 1 5 days - 4 weeks 1 - 5 months 6 -11 months 1-5 years 6-10 years 11 -17 years Mean: 11.2 (9.5-12.6) Mean: 11.0 (9.7-12.8) Mean: 11.0 (9.8-13.0) Mean: 11.3 (9.9-13.4) Mean: 11.7 (10.0-14.6) Mean: 11.8 (10.0 - 14.1) Pediatric Reference ranges were obtained from a study by Marcelino Pruitt et al. prepared from 1437 samples obtained at 7 different centers using the same coagulation reagent and instrumentation as [facility]. Currently there are no coagulation studies available worldwide for children to 14 days, and no normal ranges. HEMATOLOGYOrdered By: SYSTEM SYSTEM on 03-24-2024 Basophils/100 WBC (Bld) 0.4 % Normal 0.0 - 2.0 % [facility] Basophils/Leukocytes Auto (Bld) [Pure # fraction] 0.0 E9/L Normal 0.0 - 0.2 E9/L [facility] Eosinophils (Bld) [#/Vol] 0.2 E9/L Normal 0.0 - 0.5 E9/L [facility] Eosinophils/100 WBC (Bld) 2.2 % Normal 0.0 - 8.0 % [facility] Erythrocyte distribution width (RBC) [Ratio] 14.6 % High 10.9 - 14.2 % [facility] Hematocrit (Bld) [Volume fraction] 36.8 % Normal 34.0 - 46.0 % [facility] Hemoglobin (Bld) [Mass/Vol] 12.8 g/dL Normal 12.0 - 16.0 gm/dL [facility] Lymphocytes (Bld) [#/Vol] 1.3 E9/L Normal 1.0 - 4.0 E9/L [facility] Lymphocytes/100 WBC (Bld) 12.1 % Low 14.0 - 50.0 % [facility] MCH (RBC) [Entitic mass] 31.7 pg Normal 27. 0 - 34.0 pg [facility] MCHC (RBC) [Mass/Vol] 34.7 g/dL Normal 31.4 - 36.0 gm/dL [facility] MCV (RBC) [Entitic vol] 91.5 fL Normal 80.0 - 100.0 fL [facility] Monocytes (Bld) [#/Vol] 0.9 E9/L Normal 0.2 - 1.0 E9/L [facility] Monocytes/100 WBC (Bld) 8.7 % Normal 4.0 - 14.0 % [facility] Neutrophils (Bld) [#/Vol] 8.1 E9/L High 2.0 - 7.5 E9/L [facility] Neutrophils/100 WBC (Bld) 76.6 % High 36.0 - 75.0 % [facility] Platelet mean volume (Bld) [Entitic vol] 8.3 fL Normal 6.4 - 10.8 fL [facility] Platelets (Bld) [#/Vol] 336.0 E9/L Normal 150. 0 - 500.0 E9/L [facility] RBC (Bld) [#/Vol] 4.0 E12/L Low 4.3 - 5.9 E12/L [facility] WBC corrected for nucl RBC Auto (Bld) [#/Vol] 10.6 E9/L Normal 4.0 - 11.0 E9/L [facility] PT & PTTon 03-24-2024 aPTT Coag (PPP) [Time] 32.8 second(s) Normal 25.1-36.5 [facility] Comment on above: Result Comment: Para meter 15 days - 4 weeks 1 - 5 months 6 - 11 months 1 - 5 years 6 - 10 years 11 - 17 years PTT Mean: 35.4 (27.6-45.6) Mean: 33.5 (24.8-40.7) Mean: 32.4 (25.1-40.7) Mean: 31.6 (24.0-39.2) Mean: 31.6 (26.9-38.7) Mean: 31.0 (24.6-38.4) Pediatric Reference ranges were obtained from a study by sadiq Contreras al. prepared from 1437 samples obtained at 7 different centers using the same coagulation reagent and instrumentation as [facility]. Currently there are no coagulation studies available worldwide for children to 14 days, and no normal ranges. Heparin therapeutic range (represented by Anti-Factor Xa activity of 0.2 - 0.4 U/mL) corresponds to PTT of 56.6 - 109.0 sec. Performed By: #### 1 [id number] #### [facility] [address] [place] [address] INR Coag (PPP) [Relative time] 1.06 {INR} Invalid Interpretation Code [facility] Comment on above: Result Comment: INR results are specifically intended to assess patients stabilized on long-term Anticoagulation therapy suggested INR???s ???Less Intensive Anticoagulation??? 2.0 ??? 3.0 Conventional Range 3.0 ??? 4.5 Performed By: #### 1 [id number] #### [facility] [address] [place] [address] PT Coag (PPP) [Time] 11.9 second(s) Normal 9.4-12.5 [facility] Comment on above: Result Comment: 15 d ays - 4 weeks 1 - 5 months 6 -11 months 1-5 years 6-10 years 11 -17 years Mean: 11.2 (9.5-12.6) Mean: 11.0 (9.7-12.8) Mean: 11.0 (9.8-13.0) Mean: 11.3 (9.9-13.4) Mean: 11.7 (10.0-14.6) Mean: 11.8 (10.0 - 14.1) Pediatric Reference ranges were obtained from a study by Marcelino Pruitt et al. prepared from 1437 samples obtained at 7 different centers using the same coagulation reagent and instrumentation as [facility]. Currently there are no coagulation studies available worldwide for children to 14 days, and no normal ranges. Performed By: #### 1 [id number] #### [facility] [address] [place] [address] UA with Cult Rflxon 03-24-19 25 Bacteria Auto Ql (U) Trace Normal Trace Fish er [facility] Comment on above: Performed By: #### 4 [id number] #### [facility] [address] [place] [address] Bilirubin Ql (U) Negative Normal Negative [facility] Comment on above: Performed By: #### 4 [id number] #### [facility] [address] [place] [address] Clarity (U) Turbid Abnormal Clear [facility] Comment on above: Performed By: #### 4 [id number] #### [facility] [address] [place] [address] Color (U) Yellow Normal Yellow [facility] Comment on above: Result Comment: Micr oscopic readings are only performed on those samples that meet specific criteria set forth by [facility]. Performed By: #### 4 [id number] #### [facility] [address] [place] [address] Epithelial cells.squamous Auto (Urine sed) [#/Area] 0-2 Invalid Interpretation Code [facility] Comment on above: Performed By: #### 4 [id number] #### [facility] [address] [place] [address] Glucose Ql (U) Negative Normal Negative [facility] Comment on above: Performed By: #### 4 [id number] #### [facility] [address] [place] [address] Hemoglobin Auto test strip (U) [Mass/Vol] Negative Normal Negative [facility] Comment on above: Performed By: #### 4 [id number] #### [facility] [address] [place] [address] Hyaline casts LM Ql (Urine sed) 0-3 Normal 0-3 [facility] Comment on above: Performed By: #### 4 [id number] #### [facility] [address] [place] [address] Ketones Auto test strip Ql (U) Negative Normal Negative [facility] Comment on above: Performed By: #### 4 [id number] #### [facility] [address] [place] [address] Leukocyte esterase Auto test strip Ql (U) 25 Rosemarie/uL Normal Negative [facility] Comment on above: Performed By: #### 4 [id number] #### [facility] [address] [place] [address] Mucus Auto Ql (U) 3+ [id number] Abnormal Negative [facility] Comment on above: Performed By: #### 4 [id number] #### [facility] [address] [place] [address] Nitrite Auto test strip Ql (U) Negative Normal Negative [facility] Comment on above: Performed By: #### 4 [id number] #### [facility] [address] [place] [address] pH (U) 5.5 [pH] Invalid Interpretation Code 5.0-9.0 [facility] Comment on above: Performed By: #### 4 [id number] #### [facility] Laboratory [address] [place] [address] Protein Ql (U) 1+ mg/dL Abnormal Negative [facility] Comment on above: Performed By: #### 4 [id number] #### [facility] [address] [place] [id number] RBC Ql (U) 21-30 Abnormal 0-3 [facility] Comment on above: Performed By: #### 4 [id number] #### [facility] [address] [place] [address] Specific gravity (U) [Rel density] 1.039 Invalid Interpretation Code 1.005-1.03 0 [facility] Comment on above: Performed By: #### 4 [id number] #### [facility] [address] [place] [address] Urobilinogen (U) [Mass/Vol] Negative Normal Negative [facility] Comment on above: Performed By: #### 4 [id number] #### [facility] [address] [place] [address] WBC Auto (Urine sed) [#/Area] 6-15 Abnormal 0-5 [facility] Comment on above: Performed By: #### 4 [id number] #### [facility] [address] [place] [address] Type of Urine collection method Clean Catch Normal [facility] Comment on above: Performed By: #### 4 [id number] #### [facility] [address] [place] [address] URINALYSISOrdered By: SYSTEM SYSTEM on 03-24-2024 Bacteria Auto Ql (U) Trace /HPF Normal Trace/HPF [facility] UA Auto SS Bilirubin Ql (U) Negative Normal Negativemg /dL [facility] UA Auto SS Clarity (U) Turbid *ABN* (03/24/24 7:56 AM) Invalid Interpretation Code Clear [facility] UA Auto SS Color (U) Yellow 1 (03/24/24 7:56 AM) Normal Yellow [facility] UA Auto SS Comment on above: Interpretive Data: M icroscopic readings are only performed on those samples that meet specific criteria set forth by [facility]. Epithelial cells.squamous Auto (Urine sed) [#/Area] 0-2 graded/HPF Invalid Interpretation Code [facility] UA Auto SS Glucose Ql (U) Negative Normal Negativemg /dL [facility] UA Auto SS Hemoglobin Auto test strip (U) [Mass/Vol] Negative Normal Negativemg /dL [facility] UA Auto SS Hyaline casts LM Ql (Urine sed) 0-3 graded/LPF Normal 0-3graded/ LPF [facility] UA Auto SS Ketones Auto test strip Ql (U) Negative Normal Negativemg /dL [facility] UA Auto SS Leukocyte esterase Auto test strip Ql (U) 25 Rosemarie/uL Rosemarie/uL Normal NegativeLe u/uL [facility] UA Auto SS Mucus Auto Ql (U) 3+ graded/LPF Invalid Interpretation Code Negativegr aded/LPF [facility] UA Auto SS Nitrite Auto test strip Ql (U) Negative Normal Negativemg /dL [facility] UA Auto SS pH (U) 5.5 *NA* (03/24/24 7:56 AM) Invalid Interpretation Code 5.0 - 9.0 [facility] UA Auto SS Protein Ql (U) 1+ mg/dL Invalid Interpretation Code Negativemg /dL [facility] UA Auto SS RBC Ql (U) 21-30 graded/HPF Invalid Interpretation Code 0-3graded/ HPF [facility] UA Auto SS Specific gravity (U) [Rel density] 1.039 *NA* (03/24/24 7:56 AM) Invalid Interpretation Code 1.005 - 1.030 [facility] UA Auto SS Urobilinogen (U) [Mass/Vol] Negative Normal Negativemg /dL [facility] UA Auto SS WBC Auto (Urine sed) [#/Area] 6-15 graded/HPF Invalid Interpretation Code 0-5graded/ HPF [facility] UA Auto SS URINALYSISOrdered By: Tez Marks on 03-24-2024 UA Spec Desc Clean Catch (03/24/24 7:56 AM) Normal [facility] UA Auto SS eGFRon 03-24-2024 eGFR 92 mL/min/1.73 m2 Normal >=59 [facility] Comment on above: Performed By: #### 1 [id number] #### [facility] [address] [place] [address] Urine Cytology ( Labs)on 04-29-2023 Microscopic exam Cytology (U) [Interp] Diagnosis Info Invalid Interpretation Code [facility] Comment on above: Result Comment: A:Ur ine,Urine:Post Cystoscopy Void Interpretation - A few clusters of urothelial cells with mild atypia; as post cystoscopy voided urine, low grade papillary urothelial neoplasm can not be excluded. Clinical correlation is indicated. Adequate cellularity for evaluation. CPT 55344 MicroScopic Description - Adequacy - Gross Description Site ID:A color Yellow fixative Alcohol Specimen designated Urine received in alcohol preservative and labeled with the patient???s name, consists of 90ml clear yellow fluid. Electronically signed by : on: 02/27/2024 13:00:36 Performed By: #### 1 [id number] #### [facility] [address] [place] [address] Inpatient Patient Summaryon 02-24-2024 Inpatient Patient Summary Inpatient Patient Summary [address] [address] Clinical Summary Person Information Name: MUNIRA CHESTER Age: 73 Years : 1950 Sex: Female PCP: ANDREA GOLDEN DO Marital Status: Race: White Ethnicity: Non- or Language: Grenadian Visit Id: Visit Reason: MIXED INCONTINENCE Speciality: Acuity: Enc Type: Outpatient Med Service: Surgery Arrival: 02/24/2024 09:03:30 Discharge: Dispo Type: Address: [address] [place] [id number] Provider Notes: Diagnosis: Intrinsic sphincter deficiency (ISD); Mixed incontinence; Urethral caruncle; Urethral tumor Problems Active Small bowel stricture Recurrent UTI Urethral caruncle Asymptomatic microscopic hematuria Incomplete bladder emptying Nocturia Mixed incontinence Microscopic hematuria Urinary tract infection Arthritis Asthma Hypertension Graves disease GERD (gastroesophageal reflux disease) H/O gastric ulcer Epigastric pain Abdominal bloating Personal history of colonic polyps Duodenal stricture Migraine Bilateral cataracts Mild persistent asthma Chronic tension headache Hypothyroidism, acquired, autoimmune Hyperlipidemia Osteopenia of lumbar spine History of gastric ulcer Cervical spondylosis Lumbar spondylosis Benign essential hypertension Acute allergic rhinitis due to pollen Smoking Status: Functional Status: Sensory Deficits: History of Falls: Mobility Assistance Prior to Admission: ADLs: Current Level of Assistance for Self-Care/Mobility: Cognitive Status: Allergies sulfa drugs () penicillin (Rash) iodine (Unknown) contrast media (iodine-based) (SOB - Shortness of breath) (Hives) Bee Stings (Hives) (SOB - Shortness of breath) Laboratory or Other Results This Visit (last charted value for your 02/24/2024 visit) No Laboratory or Other Results This Visit Measurements: Height: Weight: Blood Pressure: Not Valued / Not Valued BMI: Procedures No Procedures Documented Immunizations No Immunizations Documented This Visit Final Med List: albuterol (ProAir HFA 90 mcg/inh inhalation aerosol) 2 Puffs Inhalation every 4 hours as needed Shortness of breath or wheezing. alendronate (Fosamax 70 mg Tab) 1 Tablets By Mouth every week. amlodipine (amLODIPine 5 mg Tab) 1 Tablets By Mouth every day. atorvastatin (atorvastatin 10 mg Tab) 1 Tablets By Mouth every day. biotin (Hair, Skin & Nails 5 mg oral capsule) By Mouth every day. cetirizine (Zyrtec) every day. cholecalciferol (Vitamin D3) By Mouth every day. epinephrine (EpiPen 2-Giovani) 0.3 Milligram Intramuscular Once as needed Anaphylaxis. estradiol topical (estradiol 0.1 mg/g Vag Crm) apply pea sized amount to urethra 2x/wk. Refills: 0. famotidine (famotidine 20 mg Tab) By Mouth 2 times a day. fluticasone nasal (fluticasone 0.05 mg/inh Nasal [place]) 2 Sprays Nasal Inhalation every day. fluticasone nasal (Xhance 93 mcg/inh nasal spray) 2 times a day. fluticasone-vilanterol (Breo Ellipta 200 mcg-25 mcg/inh inhalation powder) 1 Inhalation. iron polysaccharide (Ferrex-150) 150 Milligram By Mouth every other day. levothyroxine (levothyroxine 88 mcg (0.088 mg) Tab) 1 Tablets By Mouth every day. montelukast (montelukast 10 mg Tab) 1 Tablets By Mouth once a day (in the evening). multivitamin (Multi Vitamins oral tablet) 1 Tablets By Mouth every day. multivitamin with minerals (Calcium with Vitamin D and Minerals oral tablet) By Mouth 2 times a day. nitrofurantoin (Macrobid 100 mg Cap) 1 Capsules By Mouth As Directed. take 1 tablet within 1 hour before or after intercourse to prevent infection.. Refills: 3. orphenadrine (orphenadrine compounding powder) pantoprazole (Pantoprazole [address] Tab) 1 Tablets By Mouth every day. Refills: 1. Care Team Members: Attending Physician: Asuncion Buchanan MD Consulting Physician: Referring Physician: Asuncion Buchanan MD Follow up: With: Address: When: Asuncion Buchanan Comments: Office to schedule follow up: cysto, urethral biopsy with fulguration under anesthesia Patient Education Information: EU - Cystoscopy Discharge Instructions (CUSTOM) Normal [facility] Main OR Intraoperative Recor don 02-24-2024 Main OR Intraoperative Record Main OR Intraoperative Record IntraOp Document Type [facility] Summary Primary Physician: Asuncion Buchanan MD Finalized Date/Time: 02/24/24 10:21:12 Pt. Name: MUNIRA CHESTER/Sex: 1950 Female Med Rec #: [id number] Physician: Asuncion Buchanan MD Financial #: [id number] Pt. Type: O Room/Bed: / Admit/Disch: 02/24/24 09:03:30 - Institution: Case Times [facility] Entry 1 Patient Times In Room 02/24/24 10:07:00 Out Room 02/24/24 10:18:00 Procedure Times Start 02/24/24 10:11:00 Stop 02/24/24 10:15:00 Anesthesia Times Last Modified By: Libby Garcia 02/24/24 10:20:38 Case Attendance [facility] Entry 1 Entry 2 Entry 3 Case Attendee Asuncion Buchanan MD, Kelsie E McClain CST, Kimberly A Role Performed Surgeon - Primary Production Worker - Primary Scrub - Primary Time In 02/24/24 10:07:00 02/24/24 10:07:00 02/24/24 10:07:00 Time Out 02/24/24 10:18:00 02/24/24 10:18:00 02/24/24 10:18:00 Procedure CYSTOSCOPY LOCAL(.) CYSTOSCOPY LOCAL(.) CYSTOSCOPY LOCAL(.) Comments Last Modified By: Libby Garcia Kelsie E Burgderfer, Kelsie E 02/24/24 10:20:50 02/24/24 10:20:50 02/24/24 10:20:50 Surgical Procedures [facility] Entry 1 Procedure Description Procedure CYSTOSCOPY LOCAL Modifiers . Surgeon Description CYSTO WITH PELVIC EXAM AND URINE CYTOLOGY Primary Procedure Yes Primary Surgeon Asuncion Buchanan MD Start 02/24/24 10:11:00 Stop 02/24/24 10:15:00 Anesthesia Type Local Surgical Service Urology Wound Class 2 - Clean-Contaminated Last Modified By: Libby Garcia 02/24/24 10:20:48 General Case Data [facility] Pre-Care Text: Classifies surgical wound, implements aseptic technique, initiates traffic control Entry 1 Case Information OR URO 1 FT Case Level None Wound Class 2 - Clean-Contaminated Specialty Urology Preop Diagnosis MIXED INCONTINENCE Postop Same As Preop Yes Postop Diagnosis MIXED INCONTINENCE Outcomes Met? Yes Last Modified By: Libby Garcia 02/24/24 10:06:11 Post-Care Text: The patient is free from signs and symptoms of infection EU IntraOp - [facility] Pre-Care Text: Implements protective measures prior to operative or invasive procedure, confirms identity before the operative or invasive procedure, verifies operative procedure, surgical site, and laterality Entry 1 EU Perioperative Protocols Procedure(s) CYSTOSCOPY LOCAL(.) Patient Identity Birthday, ID Band Verified (select at Check, Patient least 2): Participation Consents / H and P H&P, Surgery/Procedure Operative Site N/A Verified Consent Marking Verified Surgical Site Yes Laterality Verified n/a Verified Procedure Verified Yes Correct Patient Yes Position Verified Availability Equipment, Medication Time Out Asuncion Buchanan MD, Verified (If Participants Libby Garcia, Applicable) Teresa Peralta CST Time Out Complete 02/24/24 10:09:00 Allergies Reviewed? Yes Allergies Reviewed Self/Patient With Body Position Frog Legged Prep Area VAGINA Prep Agents Betasept Skin. Condition Unable to Visualize Description N/A Additional Other (See Comment) Specimens Comment CYTOLOGY Specimens Collected Vitals - EU Blood Pressure 151/84 Pulse 73 bpm Respirations 18 br/min SPO2 98 % EBL 0 I&O - EU Total Intake 0 mL Total Output 0 mL Outcomes Met? Yes Last Modified By: Libby Garcia 02/24/24 10:21:02 Post-Care Text: The patient is free from signs and symptoms of injury caused by extraneous objects Sign Out [facility] Entry 1 Before Patient Leaves OR Nurse verbally Yes Nurse verbally n/a confirms with the confirms with the team the name of team that the procedure(s) instrument, sponge, recorded and needle counts are correct (or N/A) Nurse verbally n/a Nurse verbally Yes confirms with the confirms with the team how the team whether there specimen is labeled are any equipment (including patient problems to be name), if applicable addressed Sign Out Complete 02/24/24 10:15:00 Last Modified By: Libby Garcia 02/24/24 10:15:51 Case Comments Finalized By: Libby Garcia Document Signatures Signed By: Libby Garcia 02/24/24 10:21 Libby Garcia 02/24/24 10:21 Libby Garcia 02/24/24 10:21 Normal [facility] Main OR Preoperative Recordo n 02-24-2024 Main OR Preoperative Record Main OR Preoperative Record Holding Area Document Type [facility] Summary Primary Physician: Asuncion Buchanan MD Finalized Date/Time: 02/24/24 10:08:50 Pt. Name: MUNIRA CHESTERO.B./Sex: 1950 Female Med Rec #: [id number] Physician: Asuncion Buchanan MD Financial #: [id number] Pt. Type: O Room/Bed: / Admit/Disch: 02/24/24 09:03:30 - Institution: Case Times Holding [facility] Pre-Care Text: Verifies consent for planned procedure, identifies individual values and wishes concerning care, includes family members in perioperative teaching Secures patient's records' belongings, and valuables, maintains patient's dignity and privacy, and maintains patient confidentiality Entry 1 In Holding 02/24/24 09:25:00 Outcomes Met? Yes Last Modified By: Meeta Valenzuela LPN 02/24/24 09:27:12 Post-Care Text: The patient participates in decisions affecting his or her perioperative plan of care The patient's right to privacy is maintained Surgery Checklist [facility] Entry 1 Patient Birthday, ID Band Procedure Surgical Consent, With Identification: Check, Patient Verification: Patient Participation NPO after Midnight: n/a Personal Items: Glasses Limitations: up ad drea Complaints of Pain: No Skin Integrity Intact, [place], Warm, & Dry Vitals - EU Blood Pressure 151/84 Pulse 73 bpm Respirations 18 br/min SPO2 98 % Additional None RN Reviewed Yes Specimens Collected Last Modified By: Libby Garcia 02/24/24 10:08:49 Finalized By: Libby Garcia Document Signatures Signed By: Meeta Valenzuela LPN 02/24/24 09:32 Libby Garcia 02/24/24 10:08 Normal [facility] Operative Reporton 4 Operative Report Operative Report Patient: MUNIRA CHESTER Age: 73 years Sex: Female : 1950 Associated Diagnoses: None Author: Asuncion Buchanan MD Procedure Operative Information Details: Date/ Time: 02/24/2024 10:21:00. Pre-Op Dx: Mixed Urinary Incontinence - N39.46. Post-Op Dx: Urethral tumor (STY22-IT D49.59, Discharge, Medical), Urethral caruncle (DUA55-BQ N36.2, Discharge, Medical), Mixed incontinence (NQS65-WG N39.46, Discharge, Medical). Anesthesia Type: Local. Procedure: Local Cystoscopy. Complications: None. Risks/Benefits/Informed Consent: Surgical risks, benefits, details of the procedure have been explained to the patient, Full informed consent has been obtained. Intraoperative Information Prepped: Patient is brought back to the endoscopy suite, Patient is placed in supine position (Frog-leg), Patient prepped in the usual fashion with Betadine solution (Hibiclens), 2% Xylocaine Jelly is placed per Urethra, After waiting several minutes the Cystoscope is introduced. The Urethra is: Irritated, erythematous, abnormal urethral caruncle, No strictures. The Bladder is: Normal, Trabeculated Mild (1), Papillary lesions/inflammation posterior urethra/ anterior bladder neck. No other bladder tumors, lesions, stones or foreign bodies.. The ureteral orifices: Show efflux of clear urine. Specimens Removed: Voided specimen sent for cytology. Devices Implanted: None. Removal: Cystoscope is removed, The patient tolerated it well. Vaginal examination: Vaginal mucosa: There is moderate vaginal atrophy The urethra is patent, orthotopic. Urethral caruncle, slightly abnormal with erythematous inflammation L>R There is minimal urethral hypermobility and ROSA MARIA is seen with valsalva She is able to correctly identify her pelvic muscles. No significant anterior, apical or posterior prolapse. Non-tender pelvic floor muscles . Postoperative Information Discharge: Patient is discharged home with antibiotic coverage, Follow up arranged, Stress predominant mixed incontinence. ISD confirmed today. Patient leaks when she stands up, without urge. See separate clinic note for further details: Discussed papillary inflammatory polyps noted at the bladder neck and inflamed urethral caruncle. Discussed risk benefits of biopsy to confirm no malignancy. Patient agrees to proceed. -Will schedule cystoscopy, urethral biopsy with fulguration under anesthesia. Patient understands she will need catheter for 1 to 2 days. Risks discussed including but not limited to bleeding, pain, infection, damage to surrounding structures and need for additional procedures. -Voided specimen sent for cytology post cystoscopy. -Will schedule Bulkamid under anesthesia once biopsy results.. Normal [facility] Comment on above: Result Comment: Elec tronically Signed By: Asuncion Buchanan MD\.br\Date and Time Signed: 02/24/24 10:26 EST Outpatient Surgery Discharge Instructionon 02-24-2024 Outpatient Surgery Discharge Instruction Outpatient Surgery Discharge Instruction [address] [address] Patient Discharge Instructions PERSON INFORMATION Name: MUNIRA CHESTER Date of : 1950 Current Date: 02/24/2024 10:20:30 PHYSICIANS Admitting Physician: Asuncion Buchanan MD Comment: Discharge Diagnosis: Intrinsic sphincter deficiency (ISD); Mixed incontinence; Urethral caruncle; Urethral tumor MUNIRA CHESTER has been given the following list of follow-up instructions, prescriptions, and patient education materials: IF UNABLE TO CONTACT YOUR PHYSICIAN AND YOU FEEL IT IS AN EMERGENCY, GO TO THE NEAREST EMERGENCY ROOM OR CALL 911 Follow up: With: Address: When: Asuncion Buchanan Comments: Office to schedule follow up: cysto, urethral biopsy with fulguration under anesthesia Comment: PATIENT EDUCATION INFORMATION Instructions: Cystoscopy ??? Voiding after the procedure: there may be some pain, burning, urgency, frequency and blood tinged urine following the procedure. These symptoms usually resolve within 2-5 days. Drink the amount of fluid it takes to keep the urine pink to yellow or clear in color. Drinking enough water and fluids will help to ease any discomfort after your procedure. ??? If you are having problems that seem out of the ordinary, please call. ??? If unable to contact your physician and you feel it is an emergency, go to the nearest emergency room or call 911 ??? Diet ??? you may resume your normal diet. ??? Activity ??? you may resume your normal activities ??? Call if you have a fever over 100 degrees. I, MUNIRA CHESTER, have received the attached patient education materials/instructions and have verbalized understanding: May we do a follow up call? Yes No I was present when discharge instructions were given Patient Signature ___ Date Clinican/Nurse Signature Date You may receive a survey from Mike Frias asking you to rate your care experience. Your feedback is important and will help us understand what we do well and how we can improve the quality of care we provide to you, your loved ones and our community. It???s an honor to serve you. Thank you for choosing [facility] Normal [facility] Urine Cytology ([facility])on 04-26-2023 Method of Extraction Post Cysto Void Normal [facility] Comment on above: Performed By: #### 1 [id number] #### [facility] [address] [place] [address] UC Number of Jars 1 Invalid Interpretation Code [facility] Comment on above: Performed By: #### 1 [id number] #### [facility] [address] [place] [address] UC Specimen Urine Normal [facility] Comment on above: Performed By: #### 1 [id number] #### [facility] [address] [place] [address] Type of Service Technical Only Normal [facility] Comment on above: Performed By: #### 1 [id number] #### [facility] [address] [place] [address] Urology Office/Clinic Noteon 02-05-2024 Urology Office/Clinic Note Urology Office/Clinic Note Chief Complaint 1 yr f/u, would like to discuss surgery HPI Staff 73yr old female here for 1yr f/u & wants to discuss surgery for incontinence Previous Dx: mixed incontinence, recurrent uti, urethral caruncle *Macrobid 100mg PRN before/after intercourse, Estrace cream 2x/week Dysuria: _no Incomplete bladder emptying: _no Hematuria: _no Frequency: _q2-3 hrs. Urgency: _no Nocturia: _3x, seems like while lying down ahe has to go more often Stream: _normal Leaking: _yes Post void dripping: _yes Wearing pads/ Depends: _pads, changes at least q2 hrs Urge incontinence: _yes Stress incontinence: _yes Incontinence without Sensory Awareness: _ Abdominal pain: _no Flank pain: _no Sexual complaints: _ History of Present Illness Tests reviewed: reviewed UA, PVR I have reviewed the previous health record information and history for this patient from . I have reviewed and verified the staff HPI to be accurate for this encounter. There have been no associated fever, chills, flank pain, or blood in the urine. Denies any urinary infections since last encounter. Review of Systems PHQ Score Initial [...] See HPI. Physical Exam Vitals & Measurements HR: 60(Peripheral) BP: 90/78 HT: 62 in HT: 158 cm WT: 62 kg WT: 136.686 lb BMI: 24.84 General Appearance: alert , no acute distress, well nourished, well developed female. Assessment/Plan 73 yo female here for follow up of stress predominant mixed urinary incontinence and recurrent UTIs and to discuss a procedure for the incontinence. 1. Mixed incontinence (N39.46: Mixed incontinence) ROSA MARIA > UUI. Tried the Myrbetriq, did not help her sxs. Reports hx of mesh for uterus, complicated by infection and removed 3 years later. BBS 23(17-19.4) Continues to have leaking with urgency and coughing/sneezing. Mostly during the night, gets up ~3/night to void, wears pads that she has to change at least every 2 hours. Pt states that she would like to know more about procedures to help improve her sxs. Again thoroughly discussed difference between stress and urge. Appears leakage with coughing, standing and walking to the bathroom continues to be most bother. Discussed Bulkamid or a bladder sling to help improve her ROSA MARIA, risks and benefits discussed. Higher dry rate with risk of complications with sling vs Bulkamid- lower risk, potential lower rate of dry. Would refer to tertiary center for sling given hx of vaginal mesh removal. Needs cysto and pelvic exam to evaluate candidacy for procedures given no leakage was noted at last pelvic exam and hx of mesh. Risks/benefits discussed. She would like to proceed PVR 01/31/22 - 0ml Today - 0 ml Pt states that she feels she is not emptying, will empty and then 5 minutes later, she had the urge to void. Advised pt of the possible causes of this- pt declines these issues. States it is rare. Counseled pt on behavioral changes, dietary changes, and double voiding/bladder maneuvers. Follow up w/Cysto. All questions/concerns were discussed. Pt to call the office if she encounters any issues prior. Pt acknowledges understanding. -Will schedule cysto and pelvic exam to eval ROSA MARIA. The risks and benefits for cystoscopy have been discussed. The risks include bleeding, infection, and irritation of the bladder and urinary channel, among others. The patient, after being informed of procedural details and after questions have been answered, wishes to proceed. Full informed consent has been obtained. Will order Local anesthesia. -Will send Keflex 500mg for prophy given hx of recurrent UTIs. Discussed the medication side effects, and the patient will monitor closely for these, as well as for symptom improvement. If severe side effects occur, the medication should be stopped and the office notified. -Information for Bulkamid previously provided, risks/benefits thoroughly discussed. Patient understands need for pelvic exam to demonstrate leakage and a cysto. Prior pelvic exam did not show ROSA MARIA. -Timed voids, bowel regimen -Declined PFPT and medications for OAB/UUI at this time 2. Recurrent UTI (N39.0: Urinary tract infection, site not specified) UCx 12/27/23 - Negative Taking Macrobid 100mg PRN with intercourse to prevent infections. Works well when she remembers to take it. Would like to continue given its effectiveness. Reports a few infections since last encounter but did not take the Macrobid after sex consiste (more content not included)... [facility] Comment on above: Result Comment: Elec tronically Signed By: Dewayne VILLEGAS, Asuncion [place]\.br\Date and Time Signed: 02/05/24 12:35 EST\.br\Electronically Co-Signed By: iAde Valdes\.br\Date and Time Co-Signed: 02/05/24 11:50 EST C Urineon 12-30-2023 Bacteria identified Cx Nom [...] Locations R1: This test was performed at: [facility], [address] [place] [address], [phone] , [facility] Comment on above: Performed By: #### [id number] #### [facility] [address] [place] [id number] CNOVon 12-27-2023 CNOV Office Visit (GGENMN ) ----- MUNIRA CHESTER ([id number]) 1950 F Date Time Provider Department 12/27/23 [...] balloon enteroscopy Kasey Fallon MD 12/27/2023 [employer] [facility] , REFERRING PROVIDER: Moustapha Ace [facility] [place] Sathya Mccann [facility] [id number] REASON FOR REFERRAL: Small bowel stricture HISTORY: [...] (FLONASE) 50 mcg/actuation nasal spray Use 1 Bombay in each nostril once daily. atorvastatin (LIPITOR) [...] REFLUX HYPERTENSION (more content not included)... Normal [facility] 12-25-2023 [facility] Tele[facility] (GASTA5) ----- MUNIRA CHESTER ([id number]) 1950 F Date Time Provider Department 12/25/23 [...] or can cx. Call cell phone at [phone]. MARIA D Hilliard Ann, RN 12/26/2023 9:10 [...] (FLONASE) 50 mcg/actuation nasal spray Use 1 Bombay in each nostril once daily. - atorvastatin [...] Status:Closed by HOLLIS MCKEON on 12/25/23 Normal [facility] RF Small bowel Views W contr ast Rhys 12-24-2023 IMPRESSION: Slow tra nsit. No dilated small bowel. No visualized stricture. It Program Manager: ANGELA Transcribe Date/Time: Dec 24 2023 3:37P Dictated by : HAYDEN REEVES MD This examination was interpreted and the report reviewed and electronically signed by: HAYDEN REEVES MD on Dec 24 2023 3:40PM [facility] DIVISION OF RADIOLOGY * * *Final Report* [...] Contrast: ORAL: 855 ml of EZPAQUE RESULT: Therapeutic Activities Services Worker radiograph shows no dilated bowel loops. Right [...] of narrowing identified. DIVISION OF RADIOLOGY Provider, [facility] - 12/24/2023 * * *Final Report* [...] Contrast: ORAL: 855 ml of EZPAQUE RESULT: Therapeutic Activities Services Worker radiograph shows no dilated bowel loops. Right [...] No dilated small bowel. No visualized stricture. It Program Manager: PSCB Transcribe Date/Time: Dec 24 2023 3:37P Dictated by : HAYDEN REEVES MD This examination was interpreted and the report reviewed and electronically signed by: HAYDEN REEVES MD on Dec 24 2023 3:40PM [facility] Radiology Study observation (narrative) Jose Colindres RF Small bowel Views W contr ast POOrdered By: [facility] Provider on 12-24-2023 [facility] XR SMALL BOWEL SERIESon 100 XR SMALL BOWEL SERIES * * *Final [...] Contrast: ORAL: 855 ml of EZPAQUE RESULT: Therapeutic Activities Services Worker radiograph shows no dilated bowel loops. Right [...] No dilated small bowel. No visualized stricture. It Program [facility] Transcribe Date/Time: Dec 24 2023 3:37P Dictated by : HAYDEN REEVES MD This examination was interpreted and the report reviewed and electronically signed by: HAYDEN REEVES MD on Dec 24 2023 3:40PM EST [id number] Normal [facility] CNPBree 12-04-2023 CNPN Telephone (GASTA5) ----- MUNIRA CHESTER ([id number]) 1950 F Date Time Provider Department 12/04/23 KASEY FALLON GASTA5 During your visit today, we recorded the following information about you: Hollis Mckeon RN 12/04/2023 11:12 AM Signed Pt left VM and would like to reschedule GI test to earlier in week due to would like to come with her and drive and then maybe MD would also have test results before appt. MARIA D Hilliard Ann, RN 12/05/2023 10:34 AM Signed Test moved to 12/23 for pt, called pt and she is fine with new date. Hollis Mckeon RN Allergies As of Date: 12/04/2023 Noted Allergy Reaction CONTRAST DYE 12/08/2007 SULFA (SULFONAMIDE ANTIBIOTICS) 12/08/2007 Date Reviewed: 04/11/2016 Reviewed by: Diana Spence Shruthi - Fully Assessed Reason for Visit: help rescheduling GI test [Other] Prescriptions as of 12/05/2023 - fluticasone-vilanterol (BREO ELLIPTA) 100-25 mcg/dose inhaler Inhale 1 Inhalation as instructed once daily. - Butalbital-Acetaminophen- Caff (FIORICET) 50-300-40 mg cap Take by mouth. - EPINEPHrine (EPIPEN) 0.3 mg/0.3 mL auto-injector Inject 0.3 mg intramuscularly as needed. - fluticasone (FLONASE) 50 mcg/actuation nasal spray Use 1 Bombay in each nostril once daily. - atorvastatin [...] Status:Closed by HOLLIS MCKEON on 12/04/23 [facility] Basophils Auto (Bld) [#/Vol] on 11-22-2023 Basophils (Bld) [#/Vol] Automated basophil count 0.0-0.1 [facility] Basophils/100 WBC Auto (Bld) on 11-22-2023 Basophils/100 WBC (Bld) Automated basophil % 0. 2-2.0 [facility] Eosinophils/100 WBC Auto (Bl d)on 11-22-2023 Eosinophils/100 WBC (Bld) Automated eosinophil % High 0.9-7.0 [facility] Erythrocyte distribution wid th Auto (RBC) [Ratio]on 11-22-2023 Erythrocyte distribution width (RBC) [Ratio] Erythrocyte distribution width [Ratio] by Automated count 11.0-15.0 [facility] Estimated glomerular filtrat ion rate (GFR) non- Americanon 11-22-2023 GFR/1.73 sq M.predicted among non-blacks MDRD (S/P/Bld) [Vol rate/Area] Estimated glomerular filtration rate (GFR) non- >=60 [facility] Globulin Calc (S) [Mass/Vol] on 11-22-2023 Globulin (S) [Mass/Vol] Serum globulin measurement by calculation (mass/volume) [facility] Hematocrit Auto (Bld) [Volum e fraction]on 11-22-2023 Hematocrit (Bld) [Volume fraction] Hematocrit [Volume Fraction] of Blood by Automated count 36.0-48.0 [facility] Hemoglobin [Mass/volume] in Bloodon 11-22-2023 Hemoglobin (Bld) [Mass/Vol] Hemoglobin [Mass/volume] in Blood 12.0-16.0 [facility] Iron binding capacity [Mass/ volume] in Serum or Plasmaon 11-22-2023 Iron binding capacity [Mass/Vol] Iron binding capacity [Mass/volume] in Serum or Plasma 250.0-450. 0 [facility] Iron saturation [Mass Fracti on] in Serum or Plasmaon 11-22-2023 Iron saturation [Mass fraction] Iron saturation [Mass Fraction] in Serum or Plasma [facility] Laboratory - Chemistry and C hemistry - challengeon 11-22-2023 Albumin [Mass/Vol] 3.7 g/dL 3.4-5.[address] [facility] ALP [Catalytic activity/Vol] 80 U/L 46-116 [facility] ALT [Catalytic activity/Vol] 26 U/L 14-59 [facility] AST [Catalytic activity/Vol] 21 U/L 15-37 [facility] Bilirubin [Mass/Vol] 0.5 mg/dL 0.2-1.0 [facility] Calcium [Mass/Vol] 9.0 mg/dL 8.5-10.[address] [facility] Chloride [Moles/Vol] 104 mmol/L 98-107 [facility] CO2 [Moles/Vol] 29.7 mmol/L 21.0-32.0 [facility] Creatinine [Mass/Vol] 0.85 mg/dL 0.55-1.02 [facility] Ferritin [Mass/Vol] 30.0 ng/mL 8.0-252.0 [facility] GFR/1.73 sq M.predicted MDRD (S/P/Bld) [Vol rate/Area] mL/min/{1.73_m2} >=60 [facility] Glucose [Mass/Vol] 103 mg/dL 74-[address] [facility] Iron [Mass/Vol] 71.0 ug/dL 50.0-170.0 [facility] Potassium [Moles/Vol] 3.6 mmol/L 3.5-5.1 [facility] Protein [Mass/Vol] 6.6 g/dL 6.4-8.[address] [facility] Sodium [Moles/Vol] 143 mmol/L 136-[address] [facility] Urea nitrogen [Mass/Vol] 16.0 mg/dL 7.0-18.0 [facility] Urea nitrogen/Creatinine [Mass ratio] 18.8 mg/mg [facility] Laboratory - Hematology and Cell countson 11-22-2023 Immature granulocytes/100 WBC (Bld) 0.3 % 0.0-0.5 [facility] Leukocytes [#/volume] correc radha for nucleated erythrocytes in Blood by Automated counon 11-22-2023 WBC corrected for nucl RBC Auto (Bld) [#/Vol] Leukocytes [#/volume] corrected for nucleated erythrocytes in Blood by Automated coun 4.0-11.0 [facility] Lymphocytes Auto (Bld) [#/Vo l]on 11-22-2023 Lymphocytes (Bld) [#/Vol] Lymphocytes [#/volume] in Blood by Automated count 1.2-3.8 [facility] Lymphocytes/100 WBC Auto (Bl d)on 11-22-2023 Lymphocytes/100 WBC (Bld) Lymphocytes/100 leukocytes in Blood by Automated count 20.5-60.0 [facility] MCH Auto (RBC) [Entitic mass ]on 11-22-2023 MCH (RBC) [Entitic mass] MCH [Entitic ma ss] by Automated count 26.7-34.0 [facility] MCHC Auto (RBC) [Mass/Vol]on 11-22-2023 MCHC (RBC) [Mass/Vol] MCHC [Mass/volume] by Automated count 29.9-35.2 [facility] MCV Auto (RBC) [Entitic vol] on 11-22-2023 MCV (RBC) [Entitic vol] MCV [Entitic vol ume] by Automated count 81.0-99.0 [facility] Monocytes Auto (Bld) [#/Vol] on 11-22-2023 Monocytes (Bld) [#/Vol] Automated blood monocyte count 0.3-0.8 [facility] Monocytes/100 WBC Auto (Bld) on 11-22-2023 Monocytes/100 WBC (Bld) Automated monocyte % 1. 7-12.0 [facility] Neutrophils Auto (Bld) [#/Vo l]on 11-22-2023 Neutrophils (Bld) [#/Vol] Neutrophils [#/volume] in Blood by Automated count 1.4-6.5 [facility] Neutrophils/100 WBC Auto (Bl d)on 11-22-2023 Neutrophils/100 WBC (Bld) Automated neutrophil % 43.0-75.0 [facility] No Panel Informationon 11-21 Eosinophils # (Auto) 0.6 10 3/uL 0.0-0.7 [facility] Immature Granulocyte # (Auto) 0.02 10 3/uL 0.00-0.03 [facility] Platelet mean volume Auto (B ld) [Entitic vol]on 11-22-2023 Platelet mean volume (Bld) [Entitic vol] Platelet mean volume [Entitic volume] in Blood by Automated count 9.5-13.5 [facility] Platelets Auto (Bld) [#/Vol] on 11-22-2023 Platelets (Bld) [#/Vol] Platelets [#/vol ume] in Blood by Automated count 150-450 [facility] RBC Auto (Bld) [#/Vol]on RBC (Bld) [#/Vol] Erythrocytes [#/volu me] in Blood by Automated count 4.20-5.40 [facility] Serum or plasma albumin/glob ulin mass ratioon 11-22-2023 Albumin/Globulin [Mass ratio] Serum or plasma albumin/globulin mass ratio [facility] Serum or plasma anion gap de terminationon 11-22-2023 Anion gap [Moles/Vol] Serum or plasma an ion gap determination [facility] CNPNon 10-31-2023 CNPN Telephone (GASTA5) ----- MUNIRA CHESTER ([id number]) 1950 F Date Time Provider Department 10/31/23 [...] Visit: Patient Question [1477] Prescriptions as of 10/31/2023 - fluticasone-vilanterol (BREO ELLIPTA) 100-25 mcg/dose inhaler Inhale 1 Inhalation as instructed once daily. - Butalbital-Acetaminophen- Caff (FIORICET) 50-300-40 mg cap Take by mouth. - EPINEPHrine (EPIPEN) 0.3 mg/0.3 mL auto-injector Inject 0.3 mg intramuscularly as needed. - fluticasone (FLONASE) 50 mcg/actuation nasal spray Use 1 Bombay in each nostril once daily. - atorvastatin [...] Encounter Status:Closed by REHANA HOANG on 10/31/23 [facility] Jaxon 10-16-2023 [facility] Telephone (GASTA5) ----- MUNIRA CHESTER ([id number]) 1950 F Date Time Provider Department 10/16/23 [facility] PROVIDER GASTA5 During your visit today, we recorded the following information about you: Hollis Mckeon RN 10/16/2023 1:52 PM Signed Faxed referral received on 10/15/23 for pt sent from Dr. Ace from [employer] to attention Dr. Fallon, for pt for [...] (FLONASE) 50 mcg/actuation nasal spray Use 1 Bombay in each nostril once daily. - atorvastatin [...] Status:Closed by HOLLIS MCKEON on 10/16/23 Normal [facility] Physician Referralon 024 Physician Referral [id number] Normal [facility] Telephoneon 09-05-2023 Telephone [id number] Munira Chester 1950 F Date Provider Department Center 09/05/[address] [facility] [place] No family history on file Normal [facility] Telephoneon 08-28-2023 Telephone [id number] Munira Chester 1950 F Date Provider Department [facility] [place] No family history on file Normal [facility] Physician Referralon 024 Physician Referral [id number]#[id number] Normal [facility] Ambulatory Visit Summaryon 0 08-15-2023 Ambulatory Visit [...] Tab) fluticasone nasal (fluticasone 0.05 mg/inh Nasal Bombay) fluticasone/umeclidinium/ vilanterol (Trelegy Ellipta) iron polysaccharide (Ferrex-150) [...] VILLEGAS, Asuncion [place] Where: [facility] Gastroenterology Office/Clin ic Noteon 08-15-2023 Gastroenterology Office/Clinic [...] y (01/16/2015), (more content not included)... Normal [facility] Comment on above: Result Comment: [...] Hurst DO Transcribed by: SAHIL Technologist: KE Normal [facility] Consent for Treatmenton Consent for Treatment [id number]#[id number] [facility] Consent for Procedure/Surger yon 07-22-2023 Consent for Procedure/Surgery [id number]#[id number] [facility] Nurse Consultation Noteon Nurse Consultation Note [...] Every other day fluticasone 0.05 mg/inh Nasal Bombay, 2 spray(s), Nasal, Daily Fosamax 70 mg [...] virus vaccine, inactivated 12/31/2022 Recorded SARS-CoV-2 (COVID-19) [id number] 12/22/2021 Recorded influenza virus vaccine, inactivated 12/18/2021 [...] influenza virus vaccine, inactivated 01/04/2016 Recorded Normal [facility] XR Abdomen 1 Viewon 07-10-19 XR Abdomen [...] mGy = na DAP = na Normal [facility] Consent for Treatmenton 06-16 Consent for Treatment [id number]#[id number] [facility] Nurse Consultation Noteon Nurse Consultation Note [...] Every other day fluticasone 0.05 mg/inh Nasal Bombay, 2 spray(s), Nasal, Daily Fosamax 70 mg [...] virus vaccine, inactivated 12/31/2022 Recorded SARS-CoV-2 (COVID-19) mRNAMUL.ORD![id number] 12/22/2021 Recorded influenza virus vaccine, inactivated 12/18/2021 [...] influenza virus vaccine, inactivated 01/04/2016 Recorded Normal [facility] Physician Orderon 07-03-2023 Physician Order [id number]#[id number] Normal [facility] Albumin [Mass/volume] in Ser um or Plasmaon 07-02-2023 Albumin [Mass/Vol] 3.6 g/dL 2.9-4.[address] [facility] IgA [Mass/volume] in Serum o r Plasmaon 07-02-2023 IgA [Mass/Vol] 83 mg/dL 87-352 [facility] IgE [Units/volume] in Serum or Plasmaon 07-02-2023 IgE Qn 119 [IU]/mL 6-495 [facility] Comment on above: Performed at: [employer] [facility] [address] [id number] Director: Chay Stewart MD, Phone: [phone] IgG [Mass/volume] in Serum o r Plasmaon 07-02-2023 IgG [Mass/Vol] 509 mg/dL [phone] [facility] IgM [Mass/volume] in Serum o r Plasmaon 07-02-2023 IgM [Mass/Vol] 51 mg/dL 26-217 [facility] Immunoglobulin light chains. kappa.free [Mass/volume] in Serumon 07-02-2023 Immunoglobulin light chains.kappa.free (S) [Mass/Vol] 12.1 mg/L 3.3-19.4 [facility] Immunoglobulin light chains. kappa.free/Immunoglobulin light chains.lambda.free [Yony 07-02-2023 Immunoglobulin light chains.kappa.free/Immuno globulin light chains.lambda.free (S) [Mass ratio] 1.13 0.26-1.65 [facility] Comment on above: Performed at: [facility] [address] [id number] Director: Bj Hair PhD, Phone: [phone] Immunoglobulin light chains. lambda.free [Mass/volume] in Serum or Plasmaon 07-02-2023 Immunoglobulin light chains.lambda.free [Mass/Vol] 10.7 mg/L 5.7-26.3 [facility] No Panel Informationon 07-01 Protein Electrophoresis M-Car Not Observed g/dL Not Observed [facility] Protein Electrophoresis Note Comment . [facility] Comment on above: Protein electrophore sis scan will follow via computer,mail, or 911 dispatcher delivery. Protein [Mass/volume] in Ser um or Plasmaon 07-02-2023 Protein [Mass/Vol] 6.1 g/dL 6.0-8.[address] [facility] Serum globulin measurement ( mass/volume)on 07-02-2023 Globulin (S) [Mass/Vol] 2.5 g/dL 2.2-3.9 F [facility] Serum or plasma albumin/glob ulin mass ratioon 07-02-2023 Albumin/Globulin [Mass ratio] 1.5 {ratio} 0.7-1.7 [facility] Serum or plasma alpha 1 glob ulin measurement by electrophoresis (mass/volume)on 07-02-2023 Alpha 1 globulin Elph [Mass/Vol] 0.2 g/dL 0.0-0.4 [facility] Serum or plasma alpha 2 glob ulin measurement by electrophoresis (mass/volume)on 07-02-2023 Alpha 2 globulin Elph [Mass/Vol] 0.9 g/dL 0.4-1.0 [facility] Serum or plasma beta globuli n measurement by electrophoresis (mass/volume)on 07-02-2023 Beta globulin Elph [Mass/Vol] 0.9 g/dL 0.7-1.3 [facility] Serum or plasma gamma globul in measurement by electrophoresis (mass/volume)on 07-02-2023 Gamma globulin Elph [Mass/Vol] 0.5 g/dL 0.4-1.8 [facility] Serum or plasma immunoelectr ophoresis interpretationon 07-02-2023 Interpretation IEP [Interp] Comment . [facility] Comment on above: No monoclonality det ected. Basophils Auto (Bld) [#/Vol] on 06-27-2023 Basophils (Bld) [#/Vol] 0.0 10 3/uL 0.0-0.1 [facility] Basophils/100 WBC Auto (Bld) on 06-27-2023 Basophils/100 WBC (Bld) 0.2 % 0.2-2.0 F [facility] Eosinophils/100 WBC Auto (Bl d)on 06-27-2023 Eosinophils/100 WBC (Bld) 0.2 % 0.9-7.0 [facility] Erythrocyte distribution wid th Auto (RBC) [Ratio]on 06-27-2023 Erythrocyte distribution width (RBC) [Ratio] 19.9 % 11.0-15.0 [facility] Hematocrit Auto (Bld) [Volum e fraction]on 06-27-2023 Hematocrit (Bld) [Volume fraction] 36.9 % 36.0-48.0 [facility] Hemoglobin [Mass/volume] in Bloodon 06-27-2023 Hemoglobin (Bld) [Mass/Vol] 12.0 g/dL 12.0-16.0 [facility] Iron binding capacity [Mass/ volume] in Serum or Plasmaon 06-27-2023 Iron binding capacity [Mass/Vol] 279.0 ug/dL 250.0-450. 0 [facility] Iron saturation [Mass Fracti on] in Serum or Plasmaon 06-27-2023 Iron saturation [Mass fraction] 20.8 % [facility] Laboratory - Chemistry and C hemistry - challengeon 06-27-2023 Ferritin [Mass/Vol] 110.0 ng/mL 8.0-252.0 [facility] Iron [Mass/Vol] 58.0 ug/dL 50.0-170.0 [facility] Laboratory - Hematology and Cell countson 06-27-2023 Immature granulocytes/100 WBC (Bld) 1.4 % 0.0-0.5 [facility] Leukocytes [#/volume] correc radha for nucleated erythrocytes in Blood by Automated counon 06-27-2023 WBC corrected for nucl RBC Auto (Bld) [#/Vol] 11.8 10 3/uL 4.0-11.0 [facility] Lymphocytes Auto (Bld) [#/Vo l]on 06-27-2023 Lymphocytes (Bld) [#/Vol] 2.2 10 3/uL 1.2-3.8 [facility] Lymphocytes/100 WBC Auto (Bl d)on 06-27-2023 Lymphocytes/100 WBC (Bld) 18.3 % 20.5-60.0 [facility] MCH Auto (RBC) [Entitic mass ]on 06-27-2023 MCH (RBC) [Entitic mass] 28.6 pg 26.7-34.0 [facility] MCHC Auto (RBC) [Mass/Vol]on 06-27-2023 MCHC (RBC) [Mass/Vol] 32.5 g/dL 29.9-35.2 [facility] MCV Auto (RBC) [Entitic vol] on 06-27-2023 MCV (RBC) [Entitic vol] 87.9 fL 81.0-99.0 F [facility] Monocytes Auto (Bld) [#/Vol] on 06-27-2023 Monocytes (Bld) [#/Vol] 1.4 10 3/uL 0.3-0.8 [facility] Monocytes/100 WBC Auto (Bld) on 06-27-2023 Monocytes/100 WBC (Bld) 11.8 % 1.7-12.0 F [facility] Neutrophils Auto (Bld) [#/Vo l]on 06-27-2023 Neutrophils (Bld) [#/Vol] 8.0 10 3/uL 1.4-6.5 [facility] Neutrophils/100 WBC Auto (Bl d)on 06-27-2023 Neutrophils/100 WBC (Bld) 68.1 % 43.0-75.0 [facility] No Panel Informationon 06-26 Eosinophils # (Auto) 0.0 10 3/uL 0.0-0.7 [facility] Immature Granulocyte # (Auto) 0.17 10 3/uL 0.00-0.03 [facility] Platelet mean volume Auto (B ld) [Entitic vol]on 06-27-2023 Platelet mean volume (Bld) [Entitic vol] 9.7 fL 9.5-13.5 [facility] Platelets Auto (Bld) [#/Vol] on 06-27-2023 Platelets (Bld) [#/Vol] 378 10 3/uL 150-450 [facility] RBC Auto (Bld) [#/Vol]on RBC (Bld) [#/Vol] 4.20 10 6/uL 4.20-5.40 [facility] Gastroenterology Office/Clin ic Noteon 05-30-2023 Gastroenterology [...] Every other day fluticasone 0.05 mg/inh Nasal Bombay, 2 spray(s), Nasal, Daily Fosamax 70 mg Tab, 70 mg= 1 tab(s), Oral, qWeek levothyroxine 88 mcg (0.088 mg) Tab, 88 mcg= 1 tab(s), Oral, Daily Macrobid 100 mg Cap, 100 mg= 1 cap(s), Oral, As Directed, 3 refills, Not (more content not included)... Normal [facility] Comment on above: Result Comment: [...] (05/22/2023), Co (more content not included)... Normal [facility] Comment on above: Result Comment: Elec tronically Signed By: Del Nettles MD\.br\Date and Time Signed: 05/30/23 08:34 EDT IntraOperative Documentson 0 05-29-2023 IntraOperative Documents [id number] [facility] Main OR Intraoperative Recor don 05-24-2023 Main OR Intraoperative Record IntraOp Document Type FT Summary Primary Physician: Del Nettles MD Finalized Date/Time: 05/24/23 14:03:51 Pt. Name: MUNIRA CHESTER/Sex: 1950 Female Med Rec #: [id number] Physician: Del Nettles MD Financial #: [id number] Pt. Type: O Room/Bed: / Admit/Disch: 05/22/23 06:55:50 - 05/22/23 23:59:59 Institution: Case Times FT Entry 1 Patient Times In Room 05/22/23 08:12:00 Out Room 05/22/23 08:48:00 Procedure Times Start 05/22/23 08:17:00 Stop 05/22/23 08:45:00 Anesthesia Times Start 05/22/23 08:12:00 Stop 05/22/23 08:48:00 Time at [facility] 05/22/23 08:32:00 Last Modified By: Carrie RN, Neli Barrera 05/22/23 08:48:46 General Comments: 0823 EGD completed. /,RN 0829 Colonoscopy started. /,RN 05/24/23 Chart opened to review and send charges [facility]FA Case Attendance FT Entry 1 Entry 2 Entry 3 Case Attendee Triston TURNER, Samara Butler RN, Arelis Jenkins Role Performed ACTIVITY ASSISTANT Production Worker - Primary Scrub - Primary Time In [...] Samara Goldstein CRNA, Given Participants Carrie KILLIAN, Neli Guy Kirstyn K, Sparks, Micala E, Tho VILLEGAS, [...] tissue Entry 1 Skin Integrity Intact, [place], Warm, and Skin Abnormality No Dry Outcomes Met? Yes Last Modified By: Carrie KILLIAN, Neli Barrera 05/22/23 08:18:09 Post-Care Text: The patient is free from signs and symptoms of injury caused by extraneous objects Patien (more content not included)... Normal 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 / Confirmed Recurrent UTI / SNOMED CT 804277324 / Confirmed Osteopenia of lumbar spine / SNOMED CT 331167168 / Confirmed Nocturia / SNOMED CT 776284832 / Confirmed Mild persistent asthma / SNOMED CT 3053001194 / Confirmed Migraine / SNOMED CT 69095541 / Confirmed Microscopic hematuria / SNOMED CT 327981628 / Confirmed Lumbar spondylosis / SNOMED CT 815622687 / Confirmed Mixed incontinence / SNOMED CT 36726922 / Confirmed Hypertension / SNOMED CT 8466885008 / Confirmed Hyperlipidemia / SNOMED CT 60825995 / Confirmed Personal history of colonic polyps / SNOMED CT 6861785031 / Confirmed History of gastric ulcer / SNOMED CT 286366631 / Confirmed H/O gastric ulcer / SNOMED CT 825114907 / Confirmed Graves disease / SNOMED CT 186082872 / Confirmed GERD (gastroesophageal reflux disease) / SNOMED CT 478107741 / Confirmed Incomplete bladder emptying / SNOMED CT 287505789 / Confirmed Epigastric pain / SNOMED CT 747968714 / Confirmed Chronic tension headache / SNOMED CT 718229779 / Confirmed Cervical spondylosis / SNOMED CT 8778285933 / Confirmed Bilateral cataracts / SNOMED CT 002379880 / Confirmed Benign essential hypertension / SNOMED CT 9817243 / Confirmed Hypothyroidism, acquired, autoimmune / SNOMED CT 718284673 / Confirmed Asymptomatic microscopic hematuria / SNOMED CT 5275381095 / Confirmed Asthma / SNOMED CT 925655980 / Confirmed Arthritis / SNOMED CT 3343221 / Confirmed Acute allergic rhinitis due to pollen / SNOMED CT 29216013 / Confirmed Abdominal bloating / SNOMED CT 402611737 / Confirmed Resolved: Reflux of urine / SNOMED CT 0776158887 Histories Procedure history: Colonoscopy (215936080) on 09/07/2019 at 69 Years. EGD - Esophagogastroduodenoscop y (1257530864) on 09/07/2019 at 69 Years. EGD - Esophagogastroduodenoscop y (6153651045) on 01/16/2015 at 64 Years. Colonoscopy (815898409) on 01/16/2015 at 64 Years. Comments: 08/31/2019 16:19 EDT - Tonie Barragan LPN normal EGD - Esophagogastroduodenoscop y (1844305765) on 08/17/2011 at 61 Years. EGD - Esophagogastroduodenoscop y (9090611507) on 05/17/2011 at 60 Years. Laparoscopic cholecystectomy (81925342) on 06/16/2010 at 59 Years. Colonoscopy (766297066) on 01/16/2010 at 59 Years. section (90088442). Rotator cuff repair (316522936). Tubal ligation (556034648). Cataracts (9695063515). Foot (89605246). Social History Social & Psychosocial Habits Alcohol 05/14/2023 Risk Assessment: Denies Alcohol Use Substance Abuse 05/14/2023 Risk Assessment: Denies Substance Abuse Tobacco 05/14/2023 Tobacco Use: Never (less than 100 in l Smokeless tobacco use: Never Concerns about tobacco use in household: No . Physical Examination Airway: Mallampati classification: II (soft palate, fauces, uvula visible). Respiratory: adequate air exchange. Cardiovascular: Regular rhythm. Plan [place] [employer] (ASA) physical status classification: Class II. Anesthetic Preoperative Plan: Anesthesia General. [facility] Comment on above: Result Comment: Elec [...] when meets criteria ( To home ). [facility] Comment on above: Result Comment: Elec tronically Signed By: Lavelle Logan DO, Jay Jay Springer\.melissa\Date and Time Signed: 05/24/23 13:53 EST RAD - CT Reporton 05-24-2023 RAD - CT Report [id number]#1.00TIFF [facility] RAD - CT Report [id number]#1.00TIFF [facility] Consenton 05-23-2023 Consent [id number]#1.00TIFF [facility] Discharge Instructionson Discharge Instructions [id number]#1.00TIFF [facility] Postoperative Documentson Postoperative Documents [id number]#1.00TIFF [facility] Colonoscopy Procedure Report on 05-22-2023 Colonoscopy Procedure Report Patient: MUNIRA CHESTER Age: 72 years Sex: Female : 1950 Associated Diagnoses: None Author: Tho VILLEGAS, Del Duckworth Pre-Procedure Procedure Date 05/22/2023 08:47:00 . Procedure Type: Colonoscopy. Procedure provider ma. Current history and physical Colonoscopy (128437701) on 09/07/2019 at 69 Years. EGD - Esophagogastroduodenoscop y (4934636177) on 09/07/2019 at 69 Years. EGD - Esophagogastroduodenoscop y (4040141471) on 01/16/2015 at 64 Years. Colonoscopy (452380159) on 01/16/2015 at 64 Years. Comments: 08/31/2019 16:19 Tonie Ro LPN normal EGD - Esophagogastroduodenoscop y (3147369795) on 08/17/2011 at 61 Years. EGD - Esophagogastroduodenoscop y (3381635667) on 05/17/2011 at 60 Years. Laparoscopic cholecystectomy (01046675) on 06/16/2010 at 59 Years. Colonoscopy (093748983) on 01/16/2010 at 59 Years. section (). Rotator cuff repair (275933459). Tubal ligation (506378839). Cataracts (5860230960). Foot (18771525).. Past Medical History Resolved Reflux of urine (3943952632): Resolved.. Family History Rheumatoid arthritis Mother Primary malignant neoplasm of lung Mother Diabetes mellitus type 2 Father Primary malignant neoplasm of female breast Sister . Procedure History Colonoscopy (676834181) on 09/07/2019 at 69 Years. EGD - Esophagogastroduodenoscop y (7180313487) on 09/07/2019 at 69 Years. EGD - Esophagogastroduodenoscop y (6997376343) on 01/16/2015 at 64 Years. Colonoscopy (094609805) on 01/16/2015 at 64 Years. Comments: 08/31/2019 16:19 Tonie Ro LPN normal EGD - Esophagogastroduodenoscop y (6157959268) on 08/17/2011 at 61 Years. EGD - Esophagogastroduodenoscop y (8778785536) on 05/17/2011 at 60 Years. Laparoscopic cholecystectomy (02568333) on 06/16/2010 at 59 Years. Colonoscopy (331909429) on 01/16/2010 at 59 Years. section (). Rotator cuff repair (404630138). Tubal ligation (897603421). Cataracts (3906798467). Foot (42002448).. Colorectal neoplasm risk assessment Average risk. Informed [...] infection., # 30 cap(s), Refills(s) 3, Pharmacy: [facility], 158, cm, 02/20/23 8:48:00 EST, Height/Length Dosing, 68.5, kg,... Pantoprazole [address] Tab: 40 mg = 1 tab(s), Oral, Daily, # 90 tab(s), Refills(s) 1, [facility]acy: [facility] [place] [address], 154.9, cm, 12/11/19 9:26:00 EDT, Height/Length Dosing, 70.2, kg, 12/11/19 9:26:00 EDT, Weight Dosing estradiol 0.1 mg/g Vag Crm: See Instructions, 42.5 gm, Refill(s) 0, apply pea sized amount to urethra 2x/wk, [facility], 158, cm, 02/20/23 8:48:00 EST, [...] of stomach acid fluticasone 0.05 mg/inh Nasal [place]: 2 spray(s), Nasal, Daily, Refill(s) 0 levothyroxine [...] Findings Diverticul (more content not included)... [facility] Comment on above: Other Comment: Alma enrique Attachment - attachment storage system not supported 7702292 Can be viewed in source systemMissing Attachment - attachment storage system not supported 0691953 Can be viewed in source systemMissing Attachment - attachment storage system not supported 5195126 Can be viewed in source systemMissing Attachment - attachment storage system not supported 7291389 Can be viewed in source systemMissing Attachment - attachment storage system not supported 7281982 Can be viewed in source systemMissing Attachment - attachment storage system not supported 7357175 Can be viewed in source systemMissing Attachment - attachment storage system not supported 6923087 Can be viewed in source systemMissing Attachment - attachment storage system not supported 5918428 Can be viewed in source system Consent for Treatmenton Consent for Treatment [id number]#1.00TIFF [facility] Consultation Noteon 05-22-19 Consultation Note Patient: MUNIRA CHESTER Age: 72 years Sex: Female : 1950 Associated Diagnoses: None Author: Tho VILLEGAS, Del Duckworth Pre-Procedure Procedure Date 05/22/2023 08:23:00 . Procedure [...] infection., # 30 cap(s), Refills(s) 3, Pharmacy: [facility], 158, cm, 02/20/23 8:48:00 EST, Height/Length Dosing, 68.5, kg,... Pantoprazole [address] Tab: 40 mg = 1 tab(s), Oral, Daily, # 90 tab(s), Refills(s) 1, [facility]: [facility] [facility], 154.9, cm, 12/11/19 9:26:00 EDT, Height/Length Dosing, 70.2, kg, 12/11/19 9:26:00 EDT, Weight Dosing estradiol 0.1 mg/g Vag Crm: See Instructions, 42.5 gm, Refill(s) 0, apply pea sized amount to urethra 2x/wk, [facility], 158, cm, 02/20/23 8:48:00 EST, [...] of stomach acid fluticasone 0.05 mg/inh Nasal [place]: 2 spray(s), Nasal, Daily, Refill(s) 0 levothyroxine [...] the duodenum Images Procedure images: Rec1_hd_video_4_03_06T _29_414.jpg Rec1_hd_video_4__06T _44_784.jpg Rec1_hd_video_4__06T _53_345.jpg Rec1_hd_video_4__06T 08__03_390.jpg Rec1_hd_video_4_03_06T 08__23_607.jpg Rec1_hd_video_2023__06T 08_30_290.jpg Rec1_hd_video_4__06T 08_16_512.jpg Rec1_hd_video_4__06T _56_296.jpg Rec1_hd_video_4_03_06T 08_57_453.jpg Rec1_hd_video_4__06T _31_556.jpg Rec1_hd_video_2024_03_06T _57_490.jpg . Post-Procedure Complications: none. Estimated blood loss: none. Specimens: sent to pathology. Devices/ implants: none left in place. Impression and Plan EGD: Diagnosis: Bile reflux gastritis (XNG09-LG K29.60, Working, Medical). Course: Progressing as expected. Education and Follow-up: Counseled: Family. Notes: Continue current medication Follow-up pathology report. might benefit from CT enterography versus capsule endoscopy in the future [facility] Comment on above: Result Comment: Elec tronically Signed By: Del Nettles MD\.br\Date and Time Signed: 05/22/23 09:05 EST Other Comment: Alma enrique Attachment - attachment storage system not supported [id number] Can be viewed in source systemMissing Attachment - attachment storage system not supported 6335827 Can be viewed in source systemMissing Attachment - attachment storage system not supported 1532321 Can be viewed in source systemMissing Attachment - attachment storage system not supported 0695341 Can be viewed in source systemMissing Attachment - attachment storage system not supported 4440043 Can be viewed in source systemMissing Attachment - attachment storage system not supported 0821643 Can be viewed in source systemMissing Attachment - attachment storage system not supported 8403997 Can be viewed in source systemMissing Attachment - attachment storage system not supported 6427914 Can be viewed in source systemMissing Attachment - attachment storage system not supported 1316338 Can be viewed in source systemMissing Attachment - attachment storage system not supported 1318105 Can be viewed in source systemMissing Attachment - attachment storage system not supported 8780920 Can be viewed in source system Consultation Note Patient: MUNIRA CHESTER Age: 72 years Sex: Female : 1950 Associated Diagnoses: None Author: Del Nettles MD Pre-Procedure Procedure Date 05/22/2023 08:47:00 . Procedure Type: Colonoscopy. Procedure provider me. Current history and physical Colonoscopy ([id number]) on 09/07/2019 at 69 Years. EGD - Esophagogastroduodenoscop y (2816219016) on 09/07/2019 at 69 Years. EGD - Esophagogastroduodenoscop y (7151030824) on 01/16/2015 at 64 Years. Colonoscopy (600290810) on 01/16/2015 at 64 Years. Comments: 08/31/2019 16:19 Tonie Ro LPN normal EGD - Esophagogastroduodenoscop y (9072125560) on 08/17/2011 at 61 Years. EGD - Esophagogastroduodenoscop y (7224883861) on 05/17/2011 at 60 Years. Laparoscopic cholecystectomy (60030965) on 06/16/2010 at 59 Years. Colonoscopy (634258152) on 01/16/2010 at 59 Years. section (). Rotator cuff repair (150625126). Tubal ligation (351325542). Cataracts (2635362124). Foot (34045663).. Past Medical History Resolved Reflux of urine (8170504122): Resolved.. Family History Rheumatoid arthritis Mother Primary malignant neoplasm of lung Mother Diabetes mellitus type 2 Father Primary malignant neoplasm of female breast Sister . Procedure History Colonoscopy (290719109) on 09/07/2019 at 69 Years. EGD - Esophagogastroduodenoscop y (7163941283) on 09/07/2019 at 69 Years. EGD - Esophagogastroduodenoscop y (8636619686) on 01/16/2015 at 64 Years. Colonoscopy (893387387) on 01/16/2015 at 64 Years. Comments: 08/31/2019 16:19 Tonie Ro LPN normal EGD - Esophagogastroduodenoscop y (3075763602) on 08/17/2011 at 61 Years. EGD - Esophagogastroduodenoscop y (3280244821) on 05/17/2011 at 60 Years. Laparoscopic cholecystectomy (82828671) on 06/16/2010 at 59 Years. Colonoscopy (590867462) on 01/16/2010 at 59 Years. section (). Rotator cuff repair (). Tubal ligation (974186341). Cataracts (7592140233). Foot (99859565).. Colorectal neoplasm risk assessment Average risk. Informed [...] infection., # 30 cap(s), Refills(s) 3, Pharmacy: [facility], 158, cm, 02/20/23 8:48:00 EST, Height/Length Dosing, 68.5, kg,... Pantoprazole [address] Tab: 40 mg = 1 tab(s), Oral, Daily, # 90 tab(s), Refills(s) 1, Pharmacy: [facility] [facility], 154.9, cm, 12/11/19 9:26:00 EDT, Height/Length Dosing, 70.2, kg, 12/11/19 9:26:00 EDT, Weight Dosing estradiol 0.1 mg/g Vag Crm: See Instructions, 42.5 gm, Refill(s) 0, apply pea sized amount to urethra 2x/wk, [facility], 158, cm, 02/20/23 8:48:00 EST, [...] of stomach acid fluticasone 0.05 mg/inh Nasal [place]: 2 spray(s), Nasal, Daily, Refill(s) 0 levothyroxine [...] well. Findings (more content not included)... [facility] Comment on above: Result Comment: Elec tronically Signed By: Tho VILLEGAS, Del Duckworth\.br\Date and Time Signed: 05/22/23 08:51 EST error Other Comment: Alma enrique Attachment - attachment storage system not supported 2419888 Can be viewed in source systemMissing Attachment - attachment storage system not supported 9481773 Can be viewed in source systemMissing Attachment - attachment storage system not supported 8214225 Can be viewed in source systemMissing Attachment - attachment storage system not supported 1677682 Can be viewed in source systemMissing Attachment - attachment storage system not supported 0801762 Can be viewed in source systemMissing Attachment - attachment storage system not supported 4186442 Can be viewed in source systemMissing Attachment - attachment storage system not supported 3882444 Can be viewed in source systemMissing Attachment - attachment storage system not supported 0612545 Can be viewed in source system Discharge [...] Tab) fluticasone nasal (fluticasone 0.05 mg/inh Nasal [place]) fluticasone/umeclidinium/ vilanterol (Trelegy Ellipta) iron polysaccharide (Ferrex-150) [...] Event Name Event Result Pharmacy Information Other: [facility] Discharge Instructions Discharge Instructions Previously Scheduled Follow-Up Appointments Saturday 8:00 AM EST With: Dewayne VILLEGAS, Asuncion [place] Where: [facility] Comment on above: Result Comment: Elec tronically [...] Tab) fluticasone nasal (fluticasone 0.05 mg/inh Nasal [place]) fluticasone/umeclidinium/ vilanterol (Trelegy Ellipta) iron polysaccharide (Ferrex-150) [...] VILLEGAS, Asuncion [place] Where: [facility] Comment on above: Result Comment: Elec tronically [...] infection., # 30 cap(s), Refills(s) 3, Pharmacy: [facility], 158, cm, 02/20/23 8:48:00 EST, Height/Length Dosing, 68.5, kg,... Pantoprazole [address] Tab: 40 mg = 1 tab(s), Oral, Daily, # 90 tab(s), Refills(s) 1, Pharmacy: [facility] [facility], 154.9, cm, 12/11/19 9:26:00 EDT, Height/Length Dosing, 70.2, kg, 12/11/19 9:26:00 EDT, Weight Dosing estradiol 0.1 mg/g Vag Crm: See Instructions, 42.5 gm, Refill(s) 0, apply pea sized amount to urethra 2x/wk, [facility], 158, cm, 02/20/23 8:48:00 EST, [...] of stomach acid fluticasone 0.05 mg/inh Nasal [place]: 2 spray(s), Nasal, Daily, Refill(s) 0 levothyroxine [...] from the duodenum Images Procedure images: Rec_hd_video__29_414.jpg Rec_hd_video__44_784.jpg Rec_hd_video__53_345.jpg Rec_hd_video__03_390.jpg Rec_hd_video__23_607.jpg Rec_hd_video__30_290.jpg Rec_hd_video_ 08_16_512.jpg Rec1_hd_video_T 08__56_296.jpg Rec1_hd_video_T __57_453.jpg Rec1_hd_video_T 08__31_556.jpg Rec1_hd_video_T _490.jpg . Post-Procedure Complications: none. Estimated blood loss: none. Specimens: sent to pathology. Devices/ implants: none left in place. Impression and Plan EGD: Diagnosis: Bile reflux gastritis (DPS97-TE K29.60, Working, Medical). Course: Progressing as expected. Education and Follow-up: Counseled: Family. Notes: Continue current medication Follow-up pathology report. [facility] Comment on above: Other Comment: Alma enrique Attachment - attachment storage system not supported [id number] Can be viewed in [facility] Attachment - attachment storage system not supported 7085000 Can be viewed in [facility] Attachment - attachment storage system not supported 1517389 Can be viewed in [facility] Attachment - attachment storage system not supported 7905812 Can be viewed in [facility] Attachment - attachment storage system not supported 6735293 Can be viewed in [facility] Attachment - attachment storage system not supported 4951626 Can be viewed in source systemMissing Attachment - attachment storage system not supported 8507447 Can be viewed in source systemMissing Attachment - attachment storage system not supported 6543975 Can be viewed in [facility]Miss[facility] Attachment - attachment storage system not supported 3665074 Can be viewed in [facility]Miss[facility] Attachment - attachment storage system not supported 9912863 Can be viewed in source systemMissing Attachment - attachment storage system not supported 3607083 Can be viewed in source system Main OR PACU I Recordon Main OR PACU I Record PACU Phase I Docum ent Type FT Summary Primary Physician: Del Nettles MD Finalized Date/Time: 05/22/23 09:41:42 Pt. Name: MUNIRA CHESTER D.O.B./Sex: 1950 Female Med Rec #: [id number] Physician: Del Nettles MD Financial #: [id number] Pt. Type: O Room/Bed: / Admit/Disch: 05/22/23 [...] By: Nat Rodriguez I 05/22/23 09:41 [facility] Main OR Preoperative Recordo n 05-22-2023 Main OR Preoperative Record Holding Area Document Type FT Summary Primary Physician: Del Nettles MD Finalized Date/Time: 05/22/23 07:08:55 Pt. Name: MUNIRA CHESTER Aviva/Sex: 1950 Female Med Rec #: [id number] Physician: Del Nettles MD Financial #: [id number] Pt. Type: O Room/Bed: / Admit/Disch: 05/22/23 [...] clear liquid yellow. Has been NPO since. /MDRN Finalized By: Neli Butler RN Document Signatures Signed By: Neli Butler RN 05/22/23 07:08 [facility] Monitor Recordon 05-22-2023 Monitor Record [id number]#1.00TIFF [facility] Monitor Record [id number]#1.00TIFF [facility] Patient Education - Texton 0 05-22-2023 Patient [...] unsweetened, w/added ascorbic acid 1 cup 0.5 Mead 1 cup 0.7 Vegetables Cooked Green beans 1 cup 4.0 Carrots 1/2 cup sliced 2.3 Peas 1 cup 8.8 Potato (baked, with skin) 1 medium potato 3.8 Raw [place] (with peel) 1 cucumber 1.5 Lettuce 1 [...] 8.7 Peanuts 1/2 cup 7.9 Chart from [facility] 2013. SEEK IMMEDIATE MEDIC (more content not included)... [facility] Consent for Procedure/Surger yon 05-16-2023 Consent for Procedure/Surgery [id number]#1.00TIFF [facility] Ambulatory Visit Summaryon 0 05-14-2023 Ambulatory [...] Tab) fluticasone nasal (fluticasone 0.05 mg/inh Nasal [place]) fluticasone/umeclidinium/ vilanterol (Trelegy Ellipta 200 mcg-62.5 mcg-25 [...] Asuncion Buchanan MD Where: [facility] Gastroenterology Office/Clin ic Noteon 05-14-2023 Gastroenterology Office/Clinic [...] Tab, Oral, BID fluticasone 0.05 mg/inh Nasal [place], 2 spray(s), Nasal, Daily Fosamax 70 mg [...] virus vaccine, inactivated 12/31/2022 Recorded SARS-CoV-2 (COVID-19) [id number] 12/22/2021 Recorded influenza virus vaccine, inactivated 12/18/2021 Recorded SARS-CoV-2 (COVID-19) mRNA-1273 vaccine 07/04/2021 Recorded SARS-CoV-2 (COVID-19) mRNA-1273 vaccine 01/23/2021 Recorded influenza virus vaccine, inactivated 11/23/2020 Recorded SARS-CoV-2 (COVID-19) mRNA-1273 vaccine 06/02/2020 Recorded SARS-CoV-2 (COVID-19) mRNA-1273 vaccine 05/05/2020 Recorded SARS-CoV-2 (COVID-19) mRNA-1273 vaccine 2020 Recorded 3 shots to date infl (more content not included)... [facility] Comment on above: Result Comment: [...] Tab, Oral, BID fluticasone 0.05 mg/inh Nasal [place], 2 spray(s), Nasal, Daily Fosamax 70 mg [...] - Denies (more content not included)... [facility] Comment on above: Result Comment: Elec tronically Signed By: Tho VILLEGAS, Del Duckworth\.br\Date and Time Signed: 05/14/23 13:07 EST Physician Referralon 024 Physician Referral [id number]#1.00TIFF [facility] Ambulatory Visit Summaryon 1 04-23-2022 Ambulatory Visit Summary MUNIRA CHESTER :1950 Visit Date:02/20/2023 Ambulatory Visit Instructions Your Diagnosis Mixed incontinence Recurrent UTI Urethral caruncle Tests Performed Urnls Dip Stick Auto w/o Microscopy POC [id number] Your Care Team Attending Physician - Dewayne [...] Tab) fluticasone nasal (fluticasone 0.05 mg/inh Nasal [place]) fluticasone/umeclidinium/ vilanterol (Trelegy Ellipta 200 mcg-62.5 mcg-25 [...] Asuncion Buchanan MD Where: [facility] Patient Educationon 02-21-20 Patient Education [...] pelvic muscle tension or spasms. ? Take pkgf-mck-zentxvf and prescription medicines only as told by [...] movement i (more content not included)... [facility] Urology Office/Clinic Noteon 02-20-2023 Urology [...] Information Dewayne VILLEGAS, Asuncion [place], URL, [facility] [address], [place] [address]- [phone] Additional Instructions: 1 yr Patient Education Pelvic Floor Dysfunction, Female Kegel Exercises IKimmie, personally scribed for Dr. Buchanan on 02/20/2023 [...] stricture Epigast (more content not included)... [facility] Comment on above: Result Comment: Elec tronically Signed By: Asuncion Buchanan MD\.br\Date and Time Signed: 02/20/23 18:21 EST\.br\Electronically Co-Signed By: Kimmie Lemus\.br\Date and Time Co-Signed: 02/20/23 09:53 EST POINT OF CARE GLUCOSEon 03-18 Glucose [Mass/Vol] 94 mg/dL Normal 74-106 [facility] Comment on above: Performed By: #### P OCGLUC ####[facility] [address] [place] [address]Dr. Dwight Mario Glucose [Mass/Vol] 106 mg/dL Normal 74-106 [facility] Comment on above: Performed By: #### P OCGLUC ####[facility] [address] [place] [address]Dr. Dwight Mario [facility]on 03-18 SARS-CoV-2 (COVID-19) RNA GIOVANI+probe Ql (Unsp spec) Not detected Normal NOT DETECTED [facility] Comment on above: Result Comment: This test is not yet approved or cleared by the [place] FDA. When there are no FDA-approved or cleared tests available, and other criteria are met, FDA can make tests available under an emergency access mechanism called an Emergency Use Authorization (EUA). The EUA for this test is supported by the [employer] Dig[employer] Operator of Health and Human Service's (HHS's) declaration [...] SARS-CoV-2. Performed By: #### C VDTB #### [facility] [address] [place] [address] Dr. Dwight Mario PROF CHEM 8 (BAS METB)on Anion gap [Moles/Vol] 13.4 mmol/L Normal Th [facility] Comment on above: Performed By: #### B MP #### [facility] [address] [place] [address] Dr. Dwight Mario Calcium [Mass/Vol] 9.1 mg/dL Normal 8.5-10.1 [facility] Comment on above: Performed By: #### B MP #### [facility] [address] [place] [address] Dr. Dwight Mario Chloride [Moles/Vol] 107 mmol/L Normal 98-107 [facility] Comment on above: Performed By: #### B MP #### [facility] [address] [place] [address] Dr. Dwight Mario CO2 [Moles/Vol] 26.5 mmol/L Normal 21.0-32.0 [facility] Comment on above: Performed By: #### B MP #### [facility] [address] [place] [address] Dr. Dwight Mario Creatinine [Mass/Vol] 0.76 mg/dL Normal 0.55-1.02 [facility] Comment on above: Performed By: #### B MP #### [facility] [address] [place] [address] Dr. Dwight Mario EGFR-AF SPANISH >60 Normal >=60 [facility] Comment on above: Performed By: #### B MP #### [facility] [address] [place] [address] Dr. Dwight Mario EGFR-NON AF SPANISH >60 Normal >=60 [facility] Comment on above: Performed By: #### B MP #### [facility] [address] [place] [address] Dr. Dwight Mario Glucose [Mass/Vol] 108 mg/dL Critically high 74-106 [facility] Comment on above: Performed By: #### B MP #### [facility] [address] [address] [address] Dwight Mario Potassium [Moles/Vol] 3.9 mmol/L Normal 3.5-5.1 [facility] Comment on above: Performed By: #### B MP #### [facility] [address] [address] [address] Dwight Mario Sodium [Moles/Vol] 143 mmol/L Normal 136-145 [facility] Comment on above: Performed By: #### B MP #### [facility] [address] [place] [address] Dr. Dwight Maroi Urea nitrogen [Mass/Vol] 25.0 mg/dL Critically high 7.0-18 .0 [facility] Comment on above: Performed By: #### B MP #### [facility] [address] [place] [address] Dr. Dwight Mario Urea nitrogen/Creatinine [Mass ratio] 32.9 mg/mg Normal [facility] Comment on above: Performed By: #### B MP #### [facility] [address] [place] [address] Dr. Dwight Mario CBC AUTO DIFFon 01-29-2022 BASO # 0.0 103/ul Normal 0.0-0.1 [facility] Comment on above: Performed By: #### C BC #### [facility] [address] [place] [address] Dr. Dwight Mario Basophils/100 WBC (Bld) 0.4 % Normal 0.2-2.0 [facility] Comment on above: Performed By: #### C BC #### [facility] [address] [place] [address] Dr. Dwight Mario EO # 0.3 103/ul Normal 0.0-0.7 [facility] Comment on above: Performed By: #### C BC #### [facility] [address] [place] [address] Dr. Dwight Mario Eosinophils/100 WBC (Bld) 2.8 % Normal 0.9-7.0 [facility] Comment on above: Performed By: #### C BC #### [facility] [address] [place] [address] Dr. Dwight Mario Erythrocyte distribution width (RBC) [Ratio] 14.0 % Normal 11.0-15.0 [facility] Comment on above: Performed By: #### C BC #### [facility] [address] [place] [address] Dr. Dwight Mario Hematocrit (Bld) [Volume fraction] 38.3 % Normal 36.0-48.0 [facility] Comment on above: Performed By: #### C BC #### [facility] [address] [place] [address] Dr. Dwihgt Mario Hemoglobin (Bld) [Mass/Vol] 12.6 g/dL Normal 12.0-16.0 [facility] Comment on above: Performed By: #### C BC #### [facility] [address] [place] [address] Dr. Dwight Mario IG # 0.03 10e3/ul Normal 0.00-0.03 [facility] Comment on above: Performed By: #### C BC #### [facility] [address] [place] [address] Dr. Dwight Mario IG % 0.3 % Normal 0.0-0.5 [facility] Comment on above: Performed By: #### C BC #### [facility] [address] [place] [address] Dr. Dwight Mario LYMPH # 2.9 103/ul Normal 1.2-3.8 [facility] Comment on above: Performed By: #### C BC #### [facility] [address] [place] [address] Dr. Dwight Mario Lymphocytes/100 WBC (Bld) 29.0 % Normal 20.5-60.0 [facility] Comment on above: Performed By: #### C BC #### [facility] [address] [place] [address] Dr. Dwight Mario MANUAL DIFF REQ NO Normal [facility] Comment on above: Performed By: #### C BC #### [facility] [address] [place] [address] Dr. Dwight Mario MCH (RBC) [Entitic mass] 30.3 pg Normal 26.7-34.0 [facility] Comment on above: Performed By: #### C BC #### [facility] [address] [place] [address] Dr. Dwight Mario MCHC (RBC) [Mass/Vol] 32.9 g/dL Normal 29.9-35.2 [facility] Comment on above: Performed By: #### C BC #### [facility] [address] [place] [address] Dr. Dwight Mario MCV (RBC) [Entitic vol] 92.1 fL Normal 81.0-99.0 [facility] Comment on above: Performed By: #### C BC #### [facility] [address] [place] [address] Dr. Dwight Mario MONO # 0.8 103/ul Normal 0.3-0.8 [facility] Comment on above: Performed By: #### C BC #### [facility] [address] [place] [address] Dr. Dwight Mario Monocytes/100 WBC (Bld) 7.9 % Normal 1.7-12.0 [facility] Comment on above: Performed By: #### C BC #### [facility] [address] [place] [address] Dr. Dwight Mario NEUT # 5.9 103/ul Normal 1.4-6.5 [facility] Comment on above: Performed By: #### C BC #### [facility] [address] [place] [address] Dr. Dwight Mario Neutrophils/100 WBC (Bld) 59.6 % Normal 43.0-75.0 [facility] Comment on above: Performed By: #### C BC #### [facility] [address] [place] [address] Dr. Dwight Mario Platelet mean volume (Bld) [Entitic vol] 9.4 fL Critically low 9.5-13.5 [facility] Comment on above: Performed By: #### C BC #### [facility] [address] [address] [address] Dwight Mario PLT 385 103/ul Normal 150-450 [facility] Comment on above: Performed By: #### C BC #### [facility] [address] [address] [address] Dwight Mario RBC 4.16 106/ul Critically low 4.20-5.40 [facility] Comment on above: Performed By: #### C BC #### [facility] [address] [address] [address] Dwight Mario WBC 10.0 103/ul Normal 4.0-11.0 [facility] Comment on above: Performed By: #### C BC #### [facility] [address] [address] [address] Dwight Mario LIPID PROFILEon 01-29-2022 CHOL-HDL RATIO NORM SEE BELOW Normal [facility] Comment on above: Result Comment: 3.3 - 4.4 LOW RISK 4.4 - 7.1 AVERAGE RISK 7.1 - 11.0 MODERATE RISK >11.0 HIGH RISK Performed By: #### L IPID, BMP, ALT, TSH ####[facility] [address] [id number] Mario Cholesterol [Mass/Vol] 184 mg/dL Normal <=200 [facility] Comment on above: Performed By: #### L IPID, BMP, ALT, TSH ####[facility] [address] [id number] Mario Cholesterol in HDL [Mass/Vol] 61 mg/dL Critically high 40-60 [facility] Comment on above: Performed By: #### L IPID, BMP, ALT, TSH ####[facility] [address] [id number]. Dwight Mario Cholesterol in LDL [Mass/Vol] 96.0 mg/dL Normal [facility] Comment on above: Performed By: #### L IPID, BMP, ALT, TSH ####[facility] [address] [id number]. Dwight Mario Cholesterol.total/Choles terol in HDL [Mass ratio] 3.0 {ratio} Normal [facility] Comment on above: Performed By: #### L IPID, BMP, ALT, TSH ####[facility] [address] [id number]. Dwight Mario HDL NORMAL > or = 60 mg/dl - LO W CARDIOVASCULAR RISK <40 mg/dl - HIGH CARDIOVASCULAR RISK Normal [facility] Comment on above: Performed By: #### L IPID, BMP, ALT, TSH ####[facility] [address] [address]Dr. Dwight Mario LDL CALC NORMAL SEE BELOW Normal [facility] Comment on above: Result Comment: <100 mg/dl OPTIMAL 100 - 129 mg/dl NEAR OR ABOVE OPTIMAL 130 - 159 mg/dl BORDERLINE HIGH 160 - 189 mg/dl HIGH >190 mg/dl VERY HIGH Performed By: #### L IPID, BMP, ALT, TSH ####[facility] [address] [address]Dr. Dwight Mario Triglyceride [Mass/Vol] 135 mg/dL Normal <=150 T [facility] Comment on above: Performed By: #### L IPID, BMP, ALT, TSH ####[facility] [address] [phone]. Dwight Mario VLDL CALC 27.0 mg/dL Normal [facility] Comment on above: Performed By: #### L IPID, BMP, ALT, TSH ####[facility] [address] [address]Dr. Dwight Mario MG MAMM SCREEN 3D ALLEGRA CADon 01-29-2022 MG MAMM SCREEN 3D ALLEGRA CAD Patient: MUNIRA CHESTER Exam Date: 01/29/2022 : 1950 Gender:F Ordering : DR ANDREA GOLDEN D.O. Admission #: [id number] Family : DR. MADISON BURNS D.O. Order #: [id number] CLICK HERE TO VIEW EXAM RADIOLOGY REPORT [...] at age 61. LOCATION: [facility] BREAST COMPOSITION: Scattered areas fibroglandular density. FINDINGS: [...] 01/29/2022 at 15:25 Normal [facility] PROF CHEM 8 (BAS METB)on Anion gap [Moles/Vol] 9.7 mmol/L Normal [facility] Comment on above: Performed By: #### L IPID, BMP, ALT, TSH ####[facility] [address] [address]Dr. Dwight Mario Calcium [Mass/Vol] 8.9 mg/dL Normal 8.5-10.1 [facility] Comment on above: Performed By: #### L IPID, BMP, ALT, TSH ####[facility] [address] [address]DrJose Mario Chloride [Moles/Vol] 105 mmol/L Normal 98-107 [facility] Comment on above: Performed By: #### L IPID, BMP, ALT, TSH ####[facility] [address] [address]Dr. Dwight Mario CO2 [Moles/Vol] 27.3 mmol/L Normal 21.0-32.0 [facility] Comment on above: Performed By: #### L IPID, BMP, ALT, TSH ####[facility] [address] [address]Dr. Dwight Mario Creatinine [Mass/Vol] 0.80 mg/dL Normal 0.55-1.02 [facility] Comment on above: Performed By: #### L IPID, BMP, ALT, TSH ####[facility] [address] [address]Dr. Dwight Mario EGFR-AF SPANISH >60 Normal >=60 [facility] Comment on above: Performed By: #### L IPID, BMP, ALT, TSH ####[facility] [address] [address]Dr. Melissamarcie Fabiano EGFR-NON AF SPANISH >60 Normal >=60 [facility] Comment on above: Performed By: #### L IPID, BMP, ALT, TSH ####[facility] [address] [address]Dr. Dwight Mario Glucose [Mass/Vol] 107 mg/dL Critically high 74-106 [facility] Comment on above: Performed By: #### L IPID, BMP, ALT, TSH ####[facility] [address] [address]Dr. Melissamarcie Mario Potassium [Moles/Vol] 4.0 mmol/L Normal 3.5-5.1 [facility] Comment on above: Performed By: #### L IPID, BMP, ALT, TSH ####[facility] [address] [address]Dr. Dwight Mario Sodium [Moles/Vol] 138 mmol/L Normal 136-145 [facility] Comment on above: Performed By: #### L IPID, BMP, ALT, TSH ####[facility] [address] [address]Dr. Dwight Mario Urea nitrogen [Mass/Vol] 20.0 mg/dL Critically high 7.0-18 .0 [facility] Comment on above: Performed By: #### L IPID, BMP, ALT, TSH ####[facility] [address] [address]Dr. Dwight Mario Urea nitrogen/Creatinine [Mass ratio] 25.0 mg/mg Normal [facility] Comment on above: Performed By: #### L IPID, BMP, ALT, TSH ####[facility] [address] [phone]. Dwight Mario SGPTon 01-29-2022 ALT [Catalytic activity/Vol] 26 U/L Normal 14-59 [facility] Comment on above: Performed By: #### L IPID, BMP, ALT, TSH ####[facility] [address] [address]Dr. Dwight Mario TSHon 01-29-2022 TSH 5.901 uIU/mL Critically high 0.358-3.74 0 [facility] Comment on above: Performed By: #### L IPID, BMP, ALT, TSH ####[facility] [address] [address]Dr. Dwight Mario XR shoulder LT min 2V*on XR shoulder LT min 2V* [facility] [place] [address] [place] [address] XRay Report Signed Patient: Munira Chester MR#: [id number] : 1950 Acct:[id number] Age/Sex: 71 / F ADM Date: 10/10/21 Loc: [facility] [place] Room: Type: [facility] Attending Dr: Espinoza Ruiz MD Copies [...] M.D.10/10/2021 1:25 PM Dictation Location: [address] [address] Transcribed By: [facility] 10/10/21 1325 Dictated By: Abelino Prado II, MD 10/10/21 1324 Signed By: 10/10/21 1325 [facility] MRI SHOULDER LT WO CONon MRI [...] by: YOVANA COTTRELL Date: 2021-10-03 15:02 Normal [facility] Vital Signs Date Time Vital Sign Value Performing Clinician Facility 04-30-2024 09:01-0500 Body height 157.5 cm Charito Vasquez MD Work Phone: [facility] 04-30-2024 09:01-0500 Body mass index (BMI) [Ratio] 30 kg/m2 Charito Vasquez MD Work Phone: [facility] 04-30-2024 09:01-0500 Body weight 74.39 kg Charito Vasquez MD Work Phone: [facility] 04-22-2024 10:50-0500 Blood Pressure Location [facility] 04-22-2024 10:50-0500 Diastolic blood pressure 66 mm[Hg] [facility] 04-22-2024 10:50-0500 Heart rate 68 /min [facility] 04-22-2024 10:50-0500 Systolic blood pressure 126 mm[Hg] [facility] 04-16-2024 10:59-0500 Body mass index (BMI) [Ratio] 30 kg/m2 Madison Rinkes DO Work Phone: [facility] 04-16-2024 10:59-0500 Body weight 74.39 kg Madison Rinkes DO Work Phone: [facility] 04-16-2024 10:59-0500 Diastolic blood pressure 76 mm[Hg] Madison Rinkes DO Work Phone: [facility] 04-16-2024 10:59-0500 Systolic blood pressure 130 mm[Hg] Madison Rinkes DO Work Phone: [facility] 04-07-2024 12:01-0500 Heart rate 77 /min [facility] 04-07-2024 12:01-0500 SaO2% (BldA) [Mass fraction] 95 % [facility] 04-07-2024 12:01-0500 Diastolic blood pressure 84 mm[Hg] [facility] 04-07-2024 12:01-0500 Mean blood pressure 108 mm[Hg] [facility] 04-07-2024 12:01-0500 Systolic blood pressure 156 mm[Hg] [facility] 04-07-2024 12:01-0500 Respiratory rate 16 /min [facility] 04-07-2024 11:07-0500 Heart rate 64 /min [facility] 04-07-2024 11:07-0500 SaO2% (BldA) [Mass fraction] 97 % [facility] 04-07-2024 11:05-0500 Respiratory rate 16 /min [facility] 04-07-2024 11:05-0500 Diastolic blood pressure 76 mm[Hg] [facility] 04-07-2024 11:05-0500 Mean blood pressure 94 mm[Hg] [facility] 04-07-2024 11:05-0500 Systolic blood pressure 131 mm[Hg] [facility] 04-07-2024 10:48-0500 Body temperature 97.7 [degF] [facility] 04-07-2024 10:48-0500 Diastolic blood pressure 83 mm[Hg] [facility] 04-07-2024 10:48-0500 Heart rate 63 /min [facility] 04-07-2024 10:48-0500 Mean blood pressure 103 mm[Hg] [facility] 04-07-2024 10:48-0500 Respiratory rate 21 /min [facility] 04-07-2024 10:48-0500 SaO2% (BldA) [Mass fraction] 97 % [facility] 04-07-2024 10:48-0500 Systolic blood pressure 142 mm[Hg] [facility] 04-07-2024 10:35-0500 Mean blood pressure 92 mm[Hg] [facility] 04-07-2024 10:35-0500 Respiratory rate 12 /min [facility] 04-07-2024 10:30-0500 Mean blood pressure 94 mm[Hg] [facility] 04-07-2024 10:30-0500 Respiratory rate 10 /min [facility] 04-07-2024 10:23-0500 Blood Pressure Location [facility] 04-07-2024 10:23-0500 Body temperature 97.52 [degF] [facility] 04-07-2024 10:15-0500 Respiratory rate 3 /min [facility] 04-07-2024 07:38-0500 Mean blood pressure 92 mm[Hg] [facility] 03-24-2024 07:32-0500 Blood Pressure Location [facility] 03-24-2024 07:32-0500 Diastolic blood pressure 79 mm[Hg] [facility] 03-24-2024 07:32-0500 Heart rate 87 /min [facility] 03-24-2024 07:32-0500 Mean blood pressure 101 mm[Hg] [facility] 03-24-2024 07:32-0500 Systolic blood pressure 145 mm[Hg] [facility] 03-24-2024 07:32-0500 Heart rate 85 /min [facility] 03-24-2024 07:32-0500 SaO2% (BldA) [Mass fraction] 98 % [facility] 03-24-2024 07:32-0500 Respiratory rate 18 /min [facility] 03-24-2024 07:32-0500 Blood Pressure Location [facility] 03-24-2024 07:32-0500 Diastolic blood pressure 76 mm[Hg] [facility] 03-24-2024 07:32-0500 Mean blood pressure 98 mm[Hg] [facility] 03-24-2024 07:32-0500 Systolic blood pressure 141 mm[Hg] [facility] 02-05-2024 11:04-0500 Blood Pressure Location [facility] 02-05-2024 11:04-0500 Diastolic blood pressure 78 mm[Hg] [facility] 02-05-2024 11:04-0500 Heart rate 60 /min [facility] 02-05-2024 11:04-0500 Systolic blood pressure 90 mm[Hg] [facility] 02-05-2024 08:33-0500 Body height 154.94 cm [facility] 02-05-2024 08:33-0500 Body mass index (BMI) [Ratio] 31.6 kg/m2 [facility] 02-05-2024 08:33-0500 Body weight 75.8 kg [facility] 02-05-2024 08:33-0500 Diastolic blood pressure 71 mm[Hg] [facility] 02-05-2024 08:33-0500 Heart rate 73 /min [facility] 02-05-2024 08:33-0500 Respiratory rate 12 /min [facility] 02-05-2024 08:33-0500 Systolic blood pressure 147 mm[Hg] [facility] 12-27-2023 14:40-0400 Body height 157.5 cm Kasey Fallon MD Work Phone: [facility] 12-27-2023 14:40-0400 Body mass index (BMI) [Ratio] 30.36 kg/m2 Kasey Fallon MD Work Phone: [facility] 12-27-2023 14:40-0400 Body temperature 98.29 [degF] Kasey Fallon MD Work Phone: [facility] 12-27-2023 14:40-0400 Body weight 75.3 kg Kasey Fallon MD Work Phone: [facility] 12-27-2023 14:40-0400 Diastolic blood pressure 72 mm[Hg] Kasey Fallon MD Work Phone: [facility] 12-27-2023 14:40-0400 Heart rate 68 /min Kasey Fallon MD Work Phone: [facility] 12-27-2023 14:40-0400 SaO2% (BldA) [Mass fraction] 95 % Kasey Fallon MD Work Phone: [facility] 12-27-2023 14:40-0400 Systolic blood pressure 136 mm[Hg] Kasey Fallon MD Work Phone: [facility] 09-14-2023 09:32-0400 Body height 160 cm Jhonny Maher MD Work Phone: [facility] 09-14-2023 09:32-0400 Body mass index (BMI) [Ratio] 28.71 kg/m2 Jhonny Maher MD Work Phone: [facility] 09-14-2023 09:32-0400 Body weight 73.53 kg Jhonny Maher MD Work Phone: [facility] 08-20-2023 15:47-0400 Body height 154.94 cm [facility] 08-20-2023 15:47-0400 Body mass index (BMI) [Ratio] 29.7 kg/m2 [facility] 08-20-2023 15:47-0400 Body temperature 97.5 [degF] [facility] 08-20-2023 15:47-0400 Body weight 71.44 kg [facility] 08-20-2023 15:47-0400 Diastolic blood pressure 77 mm[Hg] [facility] 08-20-2023 15:47-0400 Heart rate 88 /min [facility] 08-20-2023 15:47-0400 Respiratory rate 18 /min [facility] 08-20-2023 15:47-0400 SaO2% (BldA) [Mass fraction] 94 % [facility] 08-20-2023 15:47-0400 Systolic blood pressure 127 mm[Hg] [facility] 08-15-2023 08:14-0400 Blood Pressure Location [facility] 08-15-2023 08:14-0400 Diastolic blood pressure 75 mm[Hg] [facility] 08-15-2023 08:14-0400 Heart rate 80 /min [facility] 08-15-2023 08:14-0400 Respiratory rate 16 /min [facility] 08-15-2023 08:14-0400 Systolic blood pressure 126 mm[Hg] [facility] 06-21-2023 14:42-0400 Body height 154.94 cm [facility] 06-21-2023 14:42-0400 Body mass index (BMI) [Ratio] 29.3 kg/m2 [facility] 06-21-2023 14:42-0400 Body weight 70.53 kg [facility] 06-21-2023 14:42-0400 Diastolic blood pressure 79 mm[Hg] [facility] 06-21-2023 14:42-0400 Heart rate 81 /min [facility] 06-21-2023 14:42-0400 Respiratory rate 20 /min [facility] 06-21-2023 14:42-0400 SaO2% (BldA) [Mass fraction] 98 % [facility] 06-21-2023 14:42-0400 Systolic blood pressure 138 mm[Hg] [facility] 05-30-2023 08:08-0400 Blood Pressure Location Mohkp Espinosali [facility] 05-30-2023 08:08-0400 Diastolic blood pressure 78 mm[Hg] Mohliud Mouchli [facility] 05-30-2023 08:08-0400 Heart rate 80 /min Mohamad Mouchli [facility] 05-30-2023 08:08-0400 Respiratory rate 16 /min Mohamad Mouchli [facility] 05-30-2023 08:08-0400 Systolic blood pressure 126 mm[Hg] Mohamad Mouchli [facility] 05-22-2023 09:15-0500 Diastolic blood pressure 75 mm[Hg] Mohamad Mouchli [facility] 05-22-2023 09:15-0500 Heart rate 62 /min Mohamad Mouchli [facility] 05-22-2023 09:15-0500 Mean blood pressure 87 mm[Hg] Mohamad Mouchli [facility] 05-22-2023 09:15-0500 Respiratory rate 19 /min Mohamad Mouchli [facility] 05-22-2023 09:15-0500 SaO2% (BldA) [Mass fraction] 96 % Mohamad Mouchli [facility] 05-22-2023 09:15-0500 Systolic blood pressure 112 mm[Hg] Mohamad Mouchli [facility] 05-22-2023 09:05-0500 Diastolic blood pressure 71 mm[Hg] Mohamad Mouchli [facility] 05-22-2023 09:05-0500 Heart rate 65 /min Mohamad Mouchli [facility] 05-22-2023 09:05-0500 Mean blood pressure 84 mm[Hg] Mohamad Mouchli [facility] 05-22-2023 09:05-0500 Respiratory rate 10 /min Mohamad Mouchli [facility] 05-22-2023 09:05-0500 SaO2% (BldA) [Mass fraction] 95 % Mohamad Mouchli [facility] 05-22-2023 09:05-0500 Systolic blood pressure 111 mm[Hg] Mohamad Mouchli [facility] 05-22-2023 09:00-0500 Diastolic blood pressure 70 mm[Hg] Mohamad Mouchli [facility] 05-22-2023 09:00-0500 Heart rate 66 /min Mohamad Mouchli [facility] 05-22-2023 09:00-0500 Respiratory rate 15 /min Mohamad Mouchli [facility] 05-22-2023 09:00-0500 SaO2% (BldA) [Mass fraction] 99 % Mohamad Mouchli [facility] 05-22-2023 09:00-0500 Systolic blood pressure 113 mm[Hg] Mohamad Mouchli [facility] 05-22-2023 08:50-0500 Body temperature 97.52 [degF] Mohamad Mouchli [facility] 05-22-2023 08:45-0500 Respiratory rate 24 /min Mohamad Mouchli [facility] 05-22-2023 08:40-0500 Respiratory rate 24 /min Mohamad Mouchli [facility] 05-22-2023 08:35-0500 Respiratory rate 22 /min Mohamad Mouchli [facility] 05-22-2023 07:14-0500 Blood Pressure Location Mohamad Mouchli [facility] 05-22-2023 07:14-0500 Body temperature 97.88 [degF] Mohamad Mouchli [facility] 05-14-2023 12:52-0500 Blood Pressure Location Mohamad Mouchli [facility] 05-14-2023 12:52-0500 Diastolic blood pressure 89 mm[Hg] Mohamad Mouchli [facility] 05-14-2023 12:52-0500 Heart rate 89 /min Mohamad Mouchli [facility] 05-14-2023 12:52-0500 Respiratory rate 16 /min Mohamad Mouchli [facility] 05-14-2023 12:52-0500 Systolic blood pressure 135 mm[Hg] Del Nettles [facility] 04-16-2023 09:00-0500 Body height 154.94 cm Andrea Ball Other [facility] 04-16-2023 09:00-0500 Body mass index (BMI) [Ratio] 30.12 kg/m2 Andrea Ball Other [facility] Other 04-16-2023 09:00-0500 Body weight 72.3 kg Andrea Ball Other [facility] 04-16-2023 09:00-0500 Diastolic blood pressure 86 mm[Hg] Andrea Ball Other [facility] 04-16-2023 09:00-0500 Respiratory rate 20 /min Andrea Ball Other [facility] Other 04-16-2023 09:00-0500 SaO2% (BldA) [Mass fraction] 95 % Andrea Ball Other [facility] Other 04-16-2023 09:00-0500 Systolic blood pressure 150 mm[Hg] Andrea Ball Other [facility] 02-18-2023 11:45-0500 Body height 154.94 cm Andrea Ball Other [facility] Other 02-18-2023 11:45-0500 Body mass index (BMI) [Ratio] 29.4 kg/m2 Andrea Ball Other [employer] Other 02-18-2023 11:45-0500 Body weight 70.58 kg [address] Ball [address] [facility] Other 02-18-2023 11:45-0500 Diastolic blood pressure 80 mm[Hg] Andrea Ball Other [facility] Other 02-18-2023 11:45-0500 Respiratory rate 12 /min Andrea Ball Other [facility] Other 02-18-2023 11:45-0500 SaO2% (BldA) [Mass fraction] 98 % Andrea Ball Other [facility] Other 02-18-2023 11:45-0500 Systolic blood pressure 148 mm[Hg] Andrea Ball Other [facility] Other 01-25-2023 08:30-0500 Body height 154.94 cm Andrea Ball Other [facility] Other 01-25-2023 08:30-0500 Body mass index (BMI) [Ratio] 29.59 kg/m2 Andrea Ball Other [facility] Other 01-25-2023 08:30-0500 Body weight 71.03 kg Andrea Ball Other [facility] Other 01-25-2023 08:30-0500 Diastolic blood pressure 77 mm[Hg] Andrea Ball Other [facility] Other 01-25-2023 08:30-0500 Respiratory rate 12 /min Andrea Ball Other [facility] Other 01-25-2023 08:30-0500 Systolic blood pressure 118 mm[Hg] Andrea Ball Other [facility] Other 12-12-2022 13:45-0400 Body height 154.94 cm Andrea Ball Other [facility] Other 12-12-2022 13:45-0400 Body mass index (BMI) [Ratio] 29.36 kg/m2 Andrea Ball Other [facility] Other 12-12-2022 13:45-0400 Body weight 70.49 kg Andrea Ball Other [facility] Other 12-12-2022 13:45-0400 Diastolic blood pressure 79 mm[Hg] Andrea Ball Other [facility] Other 12-12-2022 13:45-0400 Respiratory rate 12 /min Andrea fflap Other [facility] Other 12-12-2022 13:45-0400 SaO2% (BldA) [Mass fraction] 98 % Andrea fflap Other [facility] Other 12-12-2022 13:45-0400 Systolic blood pressure 130 mm[Hg] Andrea fflap Other [facility] Other 11-01-2022 15:05-0400 Body height 154.94 cm Shannan Webster Other [facility] Other 11-01-2022 15:05-0400 Body mass index (BMI) [Ratio] 28.34 kg/m2 Shannan Webster Other [facility] Other 11-01-2022 15:05-0400 Body temperature 96.2 [degF] Shannan Webster Other [facility] Other 11-01-2022 15:05-0400 Body weight 68.04 kg Shannan Webster Other [facility] Other 11-01-2022 15:05-0400 Diastolic blood pressure 69 mm[Hg] Shannan Webster Other [facility] Other 11-01-2022 15:05-0400 Respiratory rate 18 /min Shannan Webster Other [facility] Other 11-01-2022 15:05-0400 SaO2% (BldA) [Mass fraction] 99 % Shannan Webster Other [facility] Other 11-01-2022 15:05-0400 Systolic blood pressure 130 mm[Hg] Shannan Webster Other [facility] Other 03-05-2022 15:00-0500 Body height 162.56 cm Luma Chirinos Other [facility] Other 12-01-2021 09:55-0400 Blood Pressure Location Asuncion Lue [facility] 12-01-2021 09:55-0400 Diastolic blood pressure 89 mm[Hg] Asuncion Lue [facility] 12-01-2021 09:55-0400 Heart rate 81 /min Asuncion Lue [facility] 12-01-2021 09:55-0400 Systolic blood pressure 140 mm[Hg] Asuncion Lue [facility] 10-10-2021 10:15-0400 Body height 162.56 cm Espinoza Ruiz Other [facility] Other 10-10-2021 10:15-0400 Body mass index (BMI) [Ratio] 24.89 kg/m2 Espinoza Olexa Other [facility] Other 10-10-2021 10:[id number] Body weight 65.77 kg Espinoza Ruiz Other [facility] Other Encounters Encounter Date Encounter Type Care Provider Facility Start: 04-30-2024 End: 04-30-2024 Bamboo flowsdanial Vasquez MD Work Phone: [facility] Start: 04-30-2024 End: 04-30-2024 Bamboo flowsdanial Vasquez MD Work Phone: [facility] Start: 04-30-2024 End: 04-30-2024 Office outpatient visit 15 minutes Charito Vasquez MD Work Phone: [facility] Comment on above: Chronic maxillary si nusitis (Primary Dx) Start: 04-30-2024 End: 04-30-2024 ambulatory CHARITO VASQUEZ Not Available Start: 04-22-2024 End: 04-22-2024 ambulatory Asuncion Buchanan Facility:[facility] Start: 04-22-2024 End: 04-22-2024 Patient encounter procedure Asuncion Buchanan [facility] Start: 04-16-2024 End: 04-16-2024 Bamboo flowsheet Madisno E Rinkes DO Work Phone: [facility] Start: 04-16-2024 End: 04-16-2024 Bamboo flowsheet Madison E Rinkes DO Work Phone: [facility] Start: 04-16-2024 End: 04-16-2024 Patient encounter status Madison E Rinkes DO Work Phone: [facility] Start: 04-16-2024 End: 04-16-2024 Periodic preventive med est patient 65yrs& older Madison Bharati Rinkes DO Work Phone: [facility] Comment on above: Encounter for gyneco logical examination without abnormal finding; Screening for malignant neoplasm of cervix; Encounter for screening mammogram for breast cancer; Lichen sclerosus et atrophicus; Screening for osteoporosis; Postmenopausal status, age-related Start: 04-16-2024 End: 04-16-2024 ambulatory MADISON BURNS Not Available Start: 04-08-2024 End: 04-08-2024 ambulatory Asuncoin [place]e Facility:[facility] Start: 04-08-2024 End: 04-08-2024 Patient encounter procedure Asuncion MJose [place] [facility] Start: 04-07-2024 End: 04-07-2024 Admission to same day surgery center Asuncion Buchanan [facility] Start: 04-07-2024 End: 04-07-2024 ambulatory Asuncion MJose Lue Facility:[facility] Start: 03-24-2024 End: 03-24-2024 ambulatory Asuncion M. Lue Facility:[facility] Start: 03-24-2024 End: 03-24-2024 Patient encounter procedure Asuncion M. Anitae [facility] Start: 02-24-2024 End: 02-24-2024 ambulatory Asuncion M. Lue Facility:[facility] Start: 02-24-2024 End: 02-24-2024 Patient encounter procedure Asuncion M. Lue [facility] Start: 02-05-2024 End: 02-05-2024 ambulatory Asuncion M. Lue Facility:[facility] Start: 02-05-2024 End: 02-05-2024 Patient encounter procedure Asuncion M. Lue [facility] Start: 02-05-2024 End: 02-05-2024 ambulatory [facility] Work Phone: Start: 02-05-2024 End: 02-05-2024 Patient encounter procedure [facility] Work Phone: Start: 02-02-2024 Patient encounter procedure [facility] Start: 01-29-2024 Non-patient / Non-visit [facility] Work Phone: Start: 01-29-2024 End: 01-29-2024 ambulatory MARSHA Richard LAL Not Available Start: 12-30-2023 End: 12-30-2023 Bamboo flowsdanial Vasquez MD Work Phone: [facility] Start: 12-30-2023 End: 12-30-2023 Bammauroo flowsdanial Vasquez MD Work Phone: [facility] [...] Start: 12-27-2023 End: 12-27-2023 ambulatory KASEY FALLON Facility:[facility] Start: 12-27-2023 End: 12-27-2023 Lab Drop off Asuncion Buchanan [facility] Start: 12-27-2023 End: 12-27-2023 ambulatory Asuncion Buchanan Facility:[facility] Start: 12-27-2023 End: 12-27-2023 Patient encounter procedure Asuncion Buchanan [facility] Start: 12-25-2023 End: 12-25-2023 Telephone encounter Kasey Fallon MD Work Phone: Gastroenterology Comment on above: Patient Question Start: 12-24-2023 End: 12-24-2023 ambulatory KASEY FALLON Facility:[facility] Start: 12-24-2023 End: 12-24-2023 Subsequent hospital visit by physician [facility] Main Qb1 (I-Stat) Radiology Comment on above: 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] Start: 12-04-2023 End: 12-04-2023 Telephone encounter Kasey Fallon MD Work Phone: Gastroenterology Comment on above: help rescheduling GI test Start: 11-22-2023 Non-patient / Non-visit [facility] Work Phone: Start: 11-04-2023 End: 11-04-2023 ambulatory LUMA J [facility] Start: 10-31-2023 Telephone encounter Kasey abarca MD Work Phone: Gastroenterology Comment on above: Patient Question Other partial intest inal obstruction (HCC) (Primary Dx) Start: 10-16-2023 Telephone encounter [facility] Comment on above: Consult Start: 10-08-2023 End: 10-08-2023 ambulatory DARLINE PEREIRA [facility] Start: 09-23-2023 End: 09-23-2023 ambulatory CHARITO VASQUEZ Not Available Start: 09-14-2023 End: 09-14-2023 Office outpatient new 60 minutes Jhonny Maher MD Work Phone: [facility] Comment on above: Chronic maxillary si nusitis (Primary Dx); Chronic ethmoiditis; Chronic cough; Asthma, unspecified asthma severity, unspecified whether complicated, unspecified whether persistent (HHS-HCC) Start: 09-14-2023 End: 09-14-2023 ambulatory [facility] Start: 08-20-2023 End: 08-20-2023 ambulatory [facility] Work Phone: Start: 08-20-2023 End: 08-20-2023 Patient encounter procedure [facility] Work Phone: Start: 08-15-2023 End: 08-15-2023 ambulatory Del Nettles Facility:[facility] Start: 08-15-2023 End: 08-15-2023 Patient encounter procedure Del Nettles [facility] Start: 08-14-2023 End: 08-14-2023 ambulatory CHARITO E RAMBASEK Not Available Start: 07-31-2023 End: 07-31-2023 ambulatory MARCI H TIMMIS Not Available Start: 07-23-2023 End: 07-23-2023 ambulatory Marci H Timmis Facility:[facility] Start: 07-23-2023 End: 07-23-2023 Patient encounter procedure Marci H Timmis [facility] Start: 07-17-2023 End: 07-17-2023 ambulatory Del Nettles Facility:[facility] Start: 07-17-2023 End: 07-17-2023 Patient encounter procedure Del Nettles [facility] Start: 07-05-2023 End: 07-05-2023 ambulatory Del Nettles Facility:[facility] Start: 07-05-2023 End: 07-05-2023 Patient encounter procedure Del Nettles [facility] Start: 07-04-2023 End: 07-04-2023 ambulatory [facility]les [facility] Start: 07-04-2023 End: 07-04-2023 Patient encounter procedure Del Nettles [facility] Start: 07-03-2023 End: 07-03-2023 ambulatory CHARITO E RAMBASEK Not Available Start: 07-02-2023 End: 07-02-2023 ambulatory MARCI ALBERTS Not Available Start: 07-02-2023 Non-patient / Non-visit [facility] Work Phone: Start: 06-27-2023 Non-patient / Non-visit [facility] Work Phone: Start: 06-25-2023 ambulatory Del Nettles Faci lity:[facility] Start: 06-21-2023 End: 06-21-2023 ambulatory [facility] Work Phone: Start: 06-21-2023 End: 06-21-2023 Patient encounter procedure [facility] Work Phone: Start: 05-30-2023 End: 05-30-2023 ambulatory [facility] Nettles [facility] Start: 05-30-2023 End: 05-30-2023 Patient encounter procedure Del Nettles [facility] Start: 05-29-2023 End: 05-29-2023 ambulatory CHARITO E RAMBASEK Not Available Start: 05-23-2023 Non-patient / Non-visit [facility] Work Phone: Start: 05-22-2023 End: 05-22-2023 ambulatory Del Nettles Facility:[facility] Start: 05-22-2023 End: 05-22-2023 Patient encounter procedure Del Nettles [facility] Start: 05-16-2023 End: 05-16-2023 ambulatory CHARITO VASQUEZ Not Available Start: 05-14-2023 End: 05-14-2023 ambulatory Del Nettles Facility:[facility] Start: 05-14-2023 End: 05-14-2023 Patient encounter procedure Del Nettles [facility] Start: 04-22-2023 End: 04-22-2023 ambulatory Andrea Chico Other [facility] Other Start: 04-22-2023 Nelia brasher MD Work Phone: [facility] Start: 04-22-2023 [employer] Management[employer]ial brasher MD Work Phone: [facility] Start: 04-22-2023 Telephone encounter Andrea Golden [facility] Start: 04-19-2023 End: 04-19-2023 ambulatory Andrea Chico Other [facility] Other Start: 04-19-2023 Telephone encounter Andrea Golden [facility] Start: 04-18-2023 Telephone encounter Andrea Golden [facility] Start: 04-18-2023 End: 04-18-2023 ambulatory Andrea Chico Other [facility] Other Start: 04-16-2023 End: 04-16-2023 ambulatory Andrea Ball Other [facility] Other Start: 04-16-2023 Office outpatient vi sit 25 minutes Andrea Golden [facility] Start: 04-16-2023 End: 04-16-2023 Patient encounter procedure [facility] Start: 04-04-2023 End: 04-04-2023 ambulatory Andrea Chico Other [facility] Other Start: 04-04-2023 Telephone encounter Andrea Golden [facility] Start: 03-08-2023 End: 03-08-2023 ambulatory Andrea Golden Other [facility] Other Start: 03-08-2023 Telephone encounter Andrea Golden [facility] Start: 03-06-2023 End: 03-06-2023 ambulatory Andrea Gloden Other [facility] Other Start: 03-06-2023 Telephone encounter Andrea Golden [facility] Start: 02-25-2023 End: 02-25-2023 ambulatory Andrea Golden Other [facility] Other Start: 02-25-2023 Telephone encounter Andrea Golden [facility] Start: 02-20-2023 End: 02-20-2023 ambulatory Asuncion Buchanan Facility:[facility] Start: 02-20-2023 End: 02-20-2023 Patient encounter procedure Asuncion Buchanan [facility] Start: 02-18-2023 End: 02-18-2023 ambulatory Andrea Golden Other [facility] Other Start: 02-18-2023 Office outpatient vi sit 15 minutes Andrea Chico [facility] Start: 02-05-2023 End: 02-05-2023 ambulatory Andrea Golden Other [facility] Other Start: 02-05-2023 Telephone encounter Andrea Golden [facility] Start: 01-31-2023 End: 01-31-2023 ambulatory Andrea Golden Other [facility] Other Start: 01-31-2023 Telephone encounter Andrea Golden [facility] Start: 01-29-2023 End: 01-29-2023 ambulatory Andrea Golden Other [facility] Other Start: 01-29-2023 Telephone encounter Andrea Golden [facility] Start: 01-25-2023 End: 01-25-2023 ambulatory Andrea Golden Other [facility] Other Start: 01-25-2023 Patient encounter procedure Andrea Golden [facility] Start: 01-25-2023 Telephone encounter Andrea WALLACE [facility] Start: 12-12-2022 End: 12-12-2022 ambulatory Andrea Golden Other [facility] Other Start: 12-12-2022 Office outpatient vi sit 15 minutes Andrea Golden [facility] Start: 11-07-2022 End: 11-07-2022 ambulatory Andrea Golden Other [facility] Other Start: 11-07-2022 Telephone encounter Andrea Golden [facility] Start: 11-01-2022 End: 11-01-2022 ambulatory Shannan Webster Other [facility] Other Start: 11-01-2022 Office outpatient vi sit 25 minutes Shannan Webster [facility] Start: 06-27-2022 End: 06-28-[address] JEROME ESPINOSA Facility:[facility] Start: 06-04-2022 End: 06-04-2022 ambulatory Andrea Golden Other [facility] Other Start: 06-04-2022 Telephone encounter Andrea Golden [facility] Start: 05-17-2022 End: 05-18-[address] CAMPOS ERAZO Facility:[facility] Start: 04-26-2022 End: 04-27-[address] JEROME ESPINOSA Facility:[facility] Start: 04-25-2022 End: 04-25-2022 ambulatory Andrea Chico Other [facility] Other Start: 04-25-2022 Telephone encounter Andrea Schwartz [facility] Start: 04-10-2022 End: 04-10-2022 ambulatory Andrea Golden Other [facility] Other Start: 04-10-2022 Telephone encounter Andrea WALLACE [facility] Start: 04-07-2022 Encounter for preprocedural cardiovascular examination [facility] Start: 04-07-2022 Encounter for preprocedural laboratory examination [facility] Start: 04-06-2022 End: 04-06-2022 ambulatory Andrea Golden Other [facility] Other Start: 04-06-2022 Telephone encounter Andrea WALLACE [facility] Start: 04-05-2022 End: 04-05-[address] JEROME ESPINOSA Facility:[facility] Start: 04-02-2022 End: 04-03-2022 ambulatory BASHIR DANIELLE Facility:[facility] Start: 04-02-2022 End: 04-03-2022 Encounter for preprocedural cardiovascular examination BASHIR DANIELLE Facility:[facility] Start: 03-28-2022 End: 03-29-[address] JEROME ESPINOSA Facility:[facility] Start: 03-20-2022 End: 03-21-[address] ANDREA GOLDEN Facility:[facility] Start: 03-12-2022 End: 03-12-[address] JEROME ESPINOSA Facility:[facility] Start: 03-05-2022 End: 03-05-2022 ambulatory uLma Chirinos Other [facility] Other Start: 03-05-2022 Office outpatient vi sit 15 minutes Luma Chirinos [facility] Start: 01-29-2022 End: 01-30-[address] ANDREA GOLDEN Facility:[facility] Start: 01-18-2022 Adult health examination Shannan Darin Other [facility] Other Start: 12-01-2021 End: 12-01-2021 Patient encounter procedure Asuncion Buchanan [facility] [place] Start: 10-10-2021 End: 10-10-2021 ambulatory Espinoza Ruiz Other [facility] Other Start: 10-10-2021 Office outpatient vi sit 25 minutes Espinoza Ruiz [facility] [place] [facility] Start: 10-10-2021 End: 10-10-2021 Patient encounter procedure MD Espinoza Ruiz Work Phone: [facility] [place] [facility] Start: 10-05-2021 End: 10-05-2021 ambulatory Espinoza Ruiz Other [facility] Other Start: 10-05-2021 Telephone encounter Espinoza Ruiz [facility] Start: 10-02-2021 End: 10-03-[address] ANDREA GOLDEN Facility:[facility] Procedures Date Procedure Procedure Detail Performing Clinician Start: 04-07-2024 Cystoscopy Asuncion Buchanan Start: 02-03-2024 Mammography Marsha Lal DO Work Phone: Start: 01-29-2024 End: 01-29-2024 [facility] xm&eval comprhnsv estab pt 1/> Keratoconjunctivitis sicca of both eyes not specified as Sjogren's Marsha Lal DO Work Phone: Comment on above: Keratoconjunctivitis sicca of both eyes not specified as Sjogren's (Primary Dx); Blepharitis of upper and lower eyelids of both eyes, unspecified type; Bilateral posterior capsular opacification Start: 12-24-2023 Radiologic exam small int single contrast study Kasey Fallon MD Work Phone: Start: 05-22-2023 Colonoscopy Jhonny Maher MD Work Phone: Start: 05-22-2023 Colonoscopy Del Nettles Start: 05-22-2023 Esophagogastroduodenoscopy Del Espinosa beltran Start: 02-05-2023 Mammography Charito Vasquez MD Work [...] Asuncion Lue Depression screening Shannan araujo Other Dilation and curettage Asuncion Lue Foot structure (body structure) Asuncion Lue Ligation of fallopian tube K athy Lue Repair of musculoten dinous cuff of shoulder Asuncion Lue Screening for malign ant neoplasm of breast Shannan Webster Other Screening for malign ant neoplasm of colon Shannan Webster Other Structure of right w rist (body structure) Asuncion Buchanan Thyroidectomy Asuncion Buchanan Plan of Treatment Date Care Activity Detail Author Start: 05-21-2033 Screening for malignant neoplasm of colon [facility] Start: 09-06-2029 Screening for malignant neoplasm of colon [facility] Start: 05-11-2025 End: 05-11-2025 Patient encounter procedure 05/11/2025 9:45 AM EST Office Visit [facility] [address] [place] [phone] Madison Burns DO [address] [place] [address] [facility] Start: 02-02-2025 Screening for malignant neoplasm of breast Mammogram [facility] Start: 02-02-2025 End: 02-02-2025 Patient encounter procedure 02/02/2025 8:15 AM EST Office Visit [facility] [address] [place] [phone] Marsha Lal DO [address] [place] [address] [facility] Start: 12-28-2024 End: 12-28-2024 Patient encounter procedure 12/28/2024 9:20 AM EDT Office Visit [facility] [address] [place] [phone] Charito Vasquez MD [address] [place] [address] [facility] Start: 04-30-2024 End: 04-30-2024 Patient encounter procedure [facility] Comment on above: Arrived Start: 04-16-2024 End: 04-16-2024 Patient encounter procedure 04/16/2024 10:30 AM EST Office Visit [facility] [address] [place] [address] Madison Burns, DO [address] [place] [address] Encounter for gynecological examination without abnormal finding; Screening for malignant neoplasm of cervix; Encounter for screening mammogram for breast cancer; Lichen sclerosus et atrophicus [facility] Comment on above: Encounter for gynecological examination without abnormal finding; Screening for malignant neoplasm of cervix; Encounter for screening mammogram for breast cancer; Lichen sclerosus et atrophicus Start: 04-08-2024 End: 04-08-2024 Patient encounter procedure 04/08/2024 9:45 AM EST Office Visit [facility] [address] [place] [phone] Madison Burns, DO [address] [place] [address] [facility] Start: 02-06-2024 Screening for malignant neoplasm of breast Mammogram [facility] Start: 01-29-2024 End: 01-29-2024 Patient encounter procedure 01/29/2024 8:15 AM EST Office Visit [facility] [address] [place] [phone] Marsha Lal, DO [address] [place] [address] [facility] Start: 01-20-2024 End: 01-20-2024 Patient encounter procedure 01/20/2024 8:15 AM EST Office Visit [facility] [address] [place] [phone] Marsha Lal, DO [address] [place] [address] [facility] Start: 12-30-2023 End: 12-30-2023 Patient encounter procedure 12/30/2023 9:20 AM EDT Office Visit [facility] [address] [place] [phone] Charito Vasquez MD [address] [place] [address] Arrived [facility] Comment on above: Arrived Start: 12-27-2023 End: 12-27-2023 Patient encounter procedure 12/27/2023 4:30 PM EDT Office Visit Gastroenterology [address] [id number] Kasey Fallon MD [facility] [address] [place] [id number] New Patient consult 30min- [facility] Comment on above: New Patient consult 30min- Double Balloo n Start: 12-27-2023 End: 12-27-2023 Patient encounter procedure 12/27/2023 9:40 AM EDT Appointment Radiology [address] [place], [place] [id number] 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] Radiology Comment on above: Other partial intestinal obstruction (HC C) [K56.690] Start: 11-17-2023 Covid-19 Vaccine ( season) Covid-19 Vaccine () [facility] Start: 11-17-2023 Covid-19 Vaccine ( season) Covid-19 Vaccine ( season) [facility] Start: 11-17-2023 Influenza vaccination Influenza Vaccine (#1) [facility] Start: 10-31-2023 End: 01-30-2024 CREATININE BLD CREATININE BLD Lab Routine Other partial intestinal obstruction (HCC) Expected: 10/31/2023, Expires: 01/30/2024 [facility] Comment on above: Expected: 10/31/2023, Expires: Start: 10-08-2023 End: 10-08-2023 Patient encounter procedure 10/08/2023 9:45 AM EDT Office Visit [facility] [address] [place] [address] [place] [address] [address] [place] [address] [facility] Start: 06-15-2023 COVID-19 Vaccine ( season) COVID-19 Vaccine () [facility] Start: 04-22-2023 End: 04-22-2023 Patient encounter procedure 04/22/2023 11:00 AM EST Office Visit [facility] [address] [place] [phone] Charito Vasquez MD [address] [facility] [address] [place] [address] Arrived [facility] Comment on above: Arrived Start: 03-18-2023 Advance Directive Discussion Advance Directive Discussion [facility] Start: 02-02-2023 Screening for malignant neoplasm of breast Mammogram Screening [facility] Start: 11-16-2022 Covid-19 Vaccine ( season) Covid-19 Vaccine ( season) [facility] Start: 2012 RSV Vaccine (1 - 1-dose 60+ series) RSV Vaccine (1 - 1-dose 60+ series) [facility] Start: 2002 Shingrix Vaccine (1 of 2) Shingrix Vaccine (1 of 2) [facility] Start: 2002 Zoster Vaccines (1 of 2) Zoster Vaccines (1 of 2) [facility] Start: 1997 Diabetes Screening Diabetes Screening [facility] Start: 1997 Lipid panel Lipid Screening [facility] Start: 1997 Screening for malignant neoplasm of colon [facility] Start: 1974 DTaP/Tdap/Td Vaccines (1 - Tdap) DTaP/Tdap/Td Vaccines (1 - Tdap) [facility] Start: 07-27-1971 Urine microalbumin profile DTaP,Tdap,Td Vaccine (1 - Tdap) [facility] Start: 1970 Anxiety Screening Anxiety Screening [facility] Start: 1970 Depression Screening Depression Screening [facility] Start: 1970 Hepatitis C screening Hepatitis C Screening [facility] Start: 1952 Lipid panel Lipid Panel [facility] Start: 1952 Medicare Annual Wellness Visit Medicare Annual Wellness Visit (AWV) [facility] Start: 1950 Screening for malignant neoplasm of colon [facility] Start: 1950 Thyroid stimulating hormone measurement TSH Level [facility] End: 11-29-2024 CT Small bowel W contrast PO and W contrast IV CT ENTEROGRAPHY W IVCON Radiology Routine Other partial intestinal obstruction (HCC) 1 Occurrences starting 10/31/2023 until 11/29/2024 [facility] Work Phone: Comment on above: 1 Occurrences starting 10/31/2023 until 11/29/2024 DBT Breast - bilateral screening Bilateral screening mammogram with tomosynthesis Imaging Routine Encounter for screening mammogram for breast cancer Ordered: 04/16/2024 [facility] Comment on above: Ordered: 04/16/2024 DXA Skeletal system Views for bone density DEXA bone density Imaging Routine Screening for osteoporosis Postmenopausal status, age-related Ordered: 04/16/2024 [facility] Comment on above: Ordered: 04/16/2024 End: 12-26-2024 ENTEROSCOPY ENTEROSCOPY Endoscopy Routine Iron deficiency anemia due to chronic blood loss Abnormal finding on GI tract imaging 1 Occurrences starting 12/27/2023 until 12/26/2024 [facility] Work Phone: Comment on above: 1 Occurrences starting 12/27/2023 until 12/26/2024 IGP, RFX APTIMA HPV ASCU IGP, RFX APTIMA HPV ASCU Lab Routine Screening for malignant neoplasm of cervix Ordered: 04/16/2024 [facility] Work Phone: Comment on above: Ordered: 04/16/2024 Immunizations Immunization Date Immunization Notes Care Provider Adan valentine 12-31-2022 Flu Shot - Documentation Purposes Only Andrea Golden Other [facility] 12-31-2022 influenza virus vaccine, unspecified formulation Asuncion Buchanan [facility] 12-31-2022 respiratory syncytia l virus (RSV) vaccine, adjuvanted (AREXVY) Kasey Fallon MD Work Phone: [facility] 12-22-2021 SARS-CoV-2 (COVID-19 ) [id number] Asuncion Buchanan [facility] 12-18-2021 influenza (HD-IIV4) vaccine, age 65+ yr, high dose, quadrivalent, PF (FLUZONE HIGH-DOSE) Kasey Fallon MD Work Phone: [facility] 12-18-2021 influenza virus vaccine, split virus (incl. purified surface antigen) Shannan Webster Other [facility] Other 12-18-2021 influenza virus vaccine, unspecified formulation Asuncion Buchanan [facility] 07-04-2021 SARS-CoV-2 (COVID-19 ) mRNA-1273 vaccine Asuncion Buchanan [facility] 01-23-2021 SARS-CoV-2 (COVID-19 ) mRNA-1273 vaccine Asuncion Buchanan [facility] 11-23-2020 influenza (aIIV4) vaccine, age 65+ yr, quadrivalent, PF (FLUAD QUAD) Kasey Fallon MD Work Phone: [facility] 11-23-2020 influenza virus vaccine, split virus (incl. purified surface antigen) Shannan Webster Other [facility] Other 11-23-2020 influenza virus vaccine, unspecified formulation Asuncion Lue [facility] 06-02-2020 SARS-CoV-2 (COVID-19 ) mRNA-1273 vaccine Asuncion Lue [facility] 05-05-2020 SARS-CoV-2 (COVID-19 ) mRNA-1273 vaccine Asuncion Lue [facility] 03-18-2020 SARS-CoV-2 (COVID-19 ) mRNA-1273 vaccine Asuncion Lue [facility] Comment on above: Result Comment: 3 sh ots to date 12-07-2019 influenza virus vaccine, split virus (incl. purified surface antigen) Shannan Webster Other [facility] Other 12-07-2019 influenza virus vaccine, unspecified formulation Asuncion Lue [facility] 12-07-2019 influenza, injectabl e, quadrivalent, preservative free Kasey Fallon MD Work Phone: [facility] 01-05-2019 influenza virus vaccine, unspecified formulation Asuncion Lue [facility] 01-05-2019 Influenza, injectabl e, Madin [place] Canine Kidney, preservative free, quadrivalent Kasey Fallon MD Work Phone: [facility] 01-05-2019 pneumococcal polysaccharide vaccine, 23 valent Asuncion Lue [facility] 12-17-2018 influenza virus vaccine, unspecified formulation Asuncion Lue [facility] 12-19-2017 influenza virus vaccine, unspecified formulation Asuncion Lue [facility] 12-19-2017 Seasonal trivalent influenza vaccine, adjuvanted, preservative free Kasey Fallon MD Work Phone: [facility] 01-10-2017 influenza virus vaccine, split virus (incl. purified surface antigen) Shannan Webster Other [facility] Other 01-10-2017 influenza virus vaccine, unspecified formulation Asuncion Lue [facility] 01-10-2017 influenza, injectabl e, quadrivalent, preservative free Kasey Fallon MD Work Phone: [facility] 01-10-2017 pneumococcal conjuga te vaccine, 13 valent Asuncion Lue [facility] 01-04-2016 influenza virus vaccine, unspecified formulation Asuncion Lue [facility] 01-04-2016 influenza, seasonal, injectable, preservative free Kasey Fallon MD Work Phone: [facility] 01-04-2016 pneumococcal polysaccharide vaccine, 23 valent Asuncion Lue [facility] Payers Date Payer Category Payer Private Health Insurance [facility] [place] [id number] 2018 Unknown [id number]. [id number] 2017 Medicare [id number] [id number]. [id number] 1959 Medicare [id number] 2.16.840.1.514488.19 1959 Unknown [id number] 2.16.840.1.821022.19 1952 Unknown [id number] 2.16.840.1.362472.3.579.2. 593 1952 Unknown [id number] 2.16.840.1.466299.3.579.2. 593 1952 Unknown [id number] 2.16.840.1.486613.3.579.2. 593 1952 Unknown [id number] 2.16.840.1.336284.3.579.2. 593 1952 Unknown [id number] 2.16.840.1.852826.3.579.2. 593 1952 Unknown [id number] 2.16.840.1.993155.3.579.2. 593 1952 Unknown [id number] 2.16.840.1.188746.3.579.2. 593 1952 Unknown [id number] 2.16.840.1.032877.3.579.2. 593 1952 Unknown [id number] 2.16.840.1.644371.3.579.2. 593 1952 Unknown [id number] 2.16.840.1.778602.3.579.2. 593 1952 Unknown [id number] 2.16.840.1.515808.3.579.2. 1244 1952 Unknown [id number] 2.16.840.1.675954.3.579.2. 1245 1952 Unknown [id number] 2.16.840.1.946547.3.579.2. 1242 1952 Unknown [id number] 2.16.840.1.799486.3.579.2. 1952 Unknown [id number] 2.16.840.1.410288.3.579.2. 1952 Unknown [id number] 2.16.840.1.531065.3.579.2. 1952 Unknown [id number] 2.16.840.1.581887.3.579.2 1952 Unknown [id number] 2.16.840.1.024800.3.579.2. 1952 Unknown [id number] 2.16.840.1.534129.3.579.2 1952 Unknown [id number] 2.16.840.1.432241.3.579.2 1952 Unknown [id number] 2.16.840.1.284075.3.579.2 1952 Unknown [id number] 2.16.840.1.489308.3.579.2. 1952 Unknown [id number] 2.16.840.1.647387.3.579.2. 1952 Unknown [id number] 2.16.840.1.365241.3.579.2 1952 Unknown [id number] 2.16.840.1.640101.3.579.2 1952 Unknown [id number] 2.16.840.1.213372.3.579.2 1952 Unknown [id number] 2.16.840.1.656210.3.579.2 1952 Unknown [id number] 2.16.840.1.286593.3.579.2. 1952 Unknown [id number] 2.16.840.1.839789.3.579.2. 1952 Unknown [id number] 2.16.840.1.178189.3.579.2. 1952 Unknown [id number] 2.16.840.1.620290.3.579.2. 1952 Unknown [id number] 2.16.840.1.567967.3.579.2. 1258 1952 Unknown [id number] 2.16.840.1.544679.3.579.2. 1258 1952 Unknown [id number] 2.16.840.1.014120.3.579.2. 1258 1952 Unknown [id number] 2.16.840.1.344154.3.579.2. 1258 1952 Unknown [id number] 2.16.840.1.853812.3.579.2. 1258 1952 Unknown [id number] 2.16.840.1.584550.3.579.2. 1258 1952 Unknown [id number] 2.16.840.1.238305.3.579.2. 1258 1952 Unknown [id number] 2.16.840.1.366250.3.579.2. 1258 1952 Unknown [id number] 2.16.840.1.710054.3.579.2. 1258 1952 Unknown [id number] 2.16.840.1.495279.3.579.2. 1258 1952 Unknown [id number] 2.16.840.1.221958.3.579.2. 9 Self-pay Self Pay [id number] Unknown [employer] BC/BS [id number] Social History Date Type Detail Facility Unknown if ever smoked [facility] Other Start: 03-07-2023 End: 04-30-[address] [facility] Other Start: 11-11-2018 End: 03-07-2023 Tobacco smoking status NHIS Never smoked tobacco (finding) [facility] Start: 1950 Sex Assigned At Female F [facility] Tobacco smoking status Never [facility] Start: 03-07-2023 End: 09-14-2023 Tobacco use and exposure Smokeless tobacco non-user [facility] Start: 03-07-2023 End: 04-30-2024 Alcohol intake Lifetime non-drinker (finding) [facility] Start: 03-07-2023 End: 04-30-2024 History of Social function [facility] Start: 03-05-2023 Alcohol Comment Caffeine : soda [facility] Start: 08-28-2022 Gender identity Identifies as female gender (finding) [facility] Start: 12-08-2007 End: 12-27-2023 Alcohol intake Current non-drinker of alcohol (finding) [facility] Start: 1950 Sex Assigned At Not on file U [facility] Work Phone: Start: 02-05-2024 Sex Female (finding) [facility] Start: 09-04-2023 End: 09-14-2023 Exposure to SARS-CoV-2 (event) Not sure [facility] Medical Equipment Procedure Code Equipment Code [...] 11-11-2018 Functional Status Date Assessment Result Facility 04-22-2024 Functional Status N/A [facility] 03-24-2024 Functional Status No [facility] 02-24-2024 Functional Status N/A [facility] 02-05-2024 Functional Status N/A [facility] 08-15-2023 Functional Status N/A [facility] 05-30-2023 Functional Status N/A [facility] 05-22-2023 Functional Status N/A [facility] 05-14-2023 Functional Status N/A [facility] 02-20-2023 Functional Status N/A [facility] 12-01-2021 Functional Status N/A [facility] Clinical Notes 10-10-2021 to 04-30-2024 Charito Vasquez MD - 04/30/2024 9:20 AM Ange Burns DO - 04/16/2024 10:30 AM EST Note Date & Type Note Facility 04-30-2024 History of Present illness Narrative Munira Chester returns to the office today and notes that her cough has been very rare but she still has frequent sneeze. She is still on Xhance and this will be coming from [facility] soon. It will be 800 USD per 3 months at [facility]. She has no wheeze or asthma symptoms. She feels that nasal lavage has been very helpful for her symptoms. She uses [employer] sinus rinse kit. She has been on Xhance since August of 2023. She has not needed albuterol at all. She will sneeze when she gets in a car. EXAM The patient appears comfortable in the [...] of any lesions, excoriations, or erythema. IMPRESSION: Chronic rhinosinusitis- we agreed she would continue Xhance and gradually taper this as tolerated. I also suggested she continue her nasal fluticasone as we agreed to taper her Xhance 1st. She will continue her nasal lavage and follow-up was arranged in 8 months for reassessment or sooner should problems arise. documented in this encounter [facility] 04-22-2024 Hospital Discharge instructions Patient Education 04/22/2024 11:30:30 Urinary Incontinence Urinary Incontinence Urinary incontinence refers to a condition in which a person is unable to control where and when to pass urine. A person with this condition will urinate involuntarily. This means that the person urinates when he or she does not mean to. What are the causes? This condition may be caused by: Medicines. Infections. Constipation. Overactive bladder muscles. Weak bladder muscles. Weak pelvic floor muscles. These muscles provide support for the bladder, intestine, and, in women, the uterus. Enlarged prostate in men. The prostate is a gland near the bladder. When it gets too big, it can pinch the urethra. With the urethra blocked, the bladder can weaken and lose the ability to empty properly. Surgery. Emotional factors, such as anxiety, stress, or post-traumatic stress disorder (PTSD). Spinal cord injury, nerve injury, or other neurological conditions. Pelvic organ prolapse. This happens in women when organs move out of place and into the vagina. This movement can prevent the bladder and urethra from working properly. What increases the risk? The following factors may make you more likely to develop this condition: Age. The older you are, the higher the risk. Obesity. Being physically inactive. and childbirth. Menopause. Diseases that affect the nerves or spinal cord. Long-term, or chronic, coughing. This can increase pressure on the bladder and pelvic floor muscles. What are the signs or symptoms? Symptoms may vary depending on the type of urinary incontinence you have. They include: A sudden urge to urinate, and passing urine involuntarily before you can get to a bathroom (urge incontinence). Suddenly passing urine when doing activities that force urine to pass, such as coughing, laughing, exercising, or sneezing (stress incontinence). Needing to urinate often but urinating only a small amount, or constantly dribbling urine (overflow incontinence). Urinating because you cannot get to the bathroom in time due to a physical disability, such as arthritis or injury, or due to a communication or thinking problem, such as Alzheimer's disease (functional incontinence). How is this diagnosed? This condition may be diagnosed based on: Your medical history. A physical exam. Tests, such as: ?Urine tests. ?X-rays of your kidney and bladder. ?Ultrasound. ?CT scan. ?Cystoscopy. In this procedure, a health care provider inserts a tube with a light and camera (cystoscope) through the urethra and into the bladder to check for problems. ?Urodynamic testing. These [...] caffeine you drink. ?Increase your fiber intake. Healthy sources of fiber include beans, whole grains, and fresh fruits and vegetables. Behavioral changes, such as: ?Pelvic floor muscle exercises. ?Bladder training, such as lengthening the amount of time between bathroom breaks, or using the bathroom at regular intervals. ?Using techniques to suppress bladder urges. This can include distraction techniques or controlled breathing exercises. Medicines, such as: ?Medicines to relax the bladder muscles and prevent bladder spasms. ?Medicines to help slow or prevent the growth of a man's prostate. ?Botox injections. These can help relax the bladder muscles. Treatments, such as: ?Using pulses of electricity to help change bladder reflexes (electrical nerve stimulation). ?For women, using a medical affairs manager to prevent urine leaks. This is a small, tampon-like, disposable device that is inserted into the urethra. ?Injecting collagen or carbon beads (bulking agents) into the urinary sphincter. These can help thicken tissue and close the bladder opening. ?Surgery. Follow these instructions at home: Lifestyle Limit alcohol and caffeine. These can fill your bladder quickly and irritate it. Keep yourself clean to help prevent odors and skin damage. Ask your health care provider about special skin creams and cleansers that can protect the skin from urine. Consider wearing pads or adult diapers. Make sure to change them regularly, and always change them right after experiencing incontinence. General instructions Take lyin-met-dormixi and prescription medicines only as told by [...] go to the bathroom. Keep all follow-up visits. This is important. Where to find more information National [place] of Diabetes and Digestive and Kidney Diseases: www.niddk.nih.gov [employer] [employer]: www.urologyhealth.org Contact a health care provider if: You have pain that gets worse. Your incontinence gets worse. Get help right away if: You have a fever or chills. You are unable to urinate. You have redness in your groin area or down your legs. Summary Urinary incontinence refers to a condition in which a person is unable to control where and when to pass urine. This condition may be caused by medicines, infection, weak bladder muscles, weak pelvic floor muscles, enlargement of the prostate (in men), or surgery. Factors such as older age, obesity, and childbirth, menopause, neurological diseases, and chronic coughing may increase your risk for developing this condition. Types of urinary incontinence include urge incontinence, stress incontinence, overflow incontinence, [...] with your health care provider. Document Revised: 10/07/2020 Document Reviewed: 10/07/2020 [employer] Patient Education 2023 [employer]. Follow Up Care 03/05/2024 08:53:11 With:Dewayne VILLEGAS, RANDAL Arizmendi, URO Address: When: Unknown [facility] 04-22-2024 Note Patient Education Urology Urinary Incontinence Urinary incontinence refers to a condition in which a person is unable to control where and when to pass urine. A person with this condition will urinate involuntarily. This means that the person urinates when he or she does not mean to. What are the causes? This condition may be caused by: ??? Medicines. ??? Infections. ??? Constipation. ??? Overactive bladder muscles. ??? Weak bladder muscles. ??? Weak pelvic floor muscles. These muscles provide support for the bladder, intestine, and, in women, the uterus. ??? Enlarged prostate in men. The prostate is a gland near the bladder. When it gets too big, it can pinch the urethra. With the urethra blocked, the bladder can weaken and lose the ability to empty properly. ??? Surgery. ??? Emotional factors, such as anxiety, stress, or post-traumatic stress disorder (PTSD). ??? Spinal cord injury, nerve injury, or other neurological conditions. ??? Pelvic organ prolapse. This happens in women when organs move out of place and into the vagina. This movement can prevent the bladder and urethra from working properly. What increases the risk? The following factors may make you more likely to develop this condition: ??? Age. The older you are, the higher the risk. ??? Obesity. ??? Being physically inactive. ??? and childbirth. ??? Menopause. ??? Diseases that affect the nerves or spinal cord. ??? Long-term, or chronic, coughing. This can increase pressure on the bladder and pelvic floor muscles. What are the signs or symptoms? Symptoms may vary depending on the type of urinary incontinence you have. They include: ??? A sudden urge to urinate, and passing urine involuntarily before you can get to a bathroom (urge incontinence). ??? Suddenly passing urine when doing activities that force urine to pass, such as coughing, laughing, exercising, or sneezing (stress incontinence). ??? Needing to urinate often but urinating only a small amount, or constantly dribbling urine (overflow incontinence). ??? Urinating because you cannot get to the bathroom in time due to a physical disability, such as arthritis or injury, or due to a communication or thinking problem, such as Alzheimer's disease (functional incontinence). How is this diagnosed? This condition may be diagnosed based on: ??? Your medical history. ??? A physical exam. ??? Tests, such as: ? Urine tests. ? X-rays of your kidney and bladder. ? Ultrasound. ? CT scan. ? Cystoscopy. In this procedure, a health care provider inserts a tube with a light and camera (cystoscope) through the urethra and into the bladder to check for problems. ? Urodynamic testing. These tests assess how well the [...] have and its cause. Treatment may include: ??? Lifestyle changes, such as: ? Quitting smoking. ? Maintaining a healthy weight. ? Staying active. Try to get 150 minutes of moderate-intensity exercise every week. Ask your health care provider which activities are safe for you. ? Eating a healthy diet. ? Avoid high-fat foods, like fried foods. ? Avoid refined carbohydrates like white bread and white rice. ? Limit how much alcohol and caffeine you drink. ? Increase your fiber intake. Healthy sources of fiber include beans, whole grains, and fresh fruits and vegetables. ??? Behavioral changes, such as: ? Pelvic floor muscle exercises. ? Bladder training, such as lengthening the amount of time between bathroom breaks, or using the bathroom at regular intervals. ? Using techniques to suppress bladder urges. This can include distraction techniques or controlled breathing exercises. ??? Medicines, such as: ? Medicines to relax the bladder muscles and prevent bladder spasms. ? Medicines to help slow or prevent the growth of a man's prostate. ? Botox injections. These can help relax the bladder muscles. ??? Treatments, such as: ? Using pulses of electricity to help change bladder reflexes (electrical nerve stimulation). ? For women, using a medical affairs manager to prevent urine leaks. This is a small, tampon-like, disposable device that is inserted into the urethra. ? Injecting collagen or carbon beads (bulking agents) into the urinary sphincter. These can help thicken tissue and close the bladder opening. ? Surgery. Follow these instructions at home: Lifestyle ??? Limit alcohol and caffeine. These can fill your bladder quickly and irritate it. ??? Keep yourself clean to help prevent odors and skin damage. Ask your health care provider (more content not included)... [facility] 04-16-2024 History of Present illness Narrative Images from the original note were not included. Madison Burns D.O. Obstetrics and Gynecology Patient: Munira Chester : 1950 (73 y.o.) Yearly Wellness Exam Date: 04/16/2024 Reason for Visit - Chief Complaint Patient presents with Gynecologic Exam Pt states has IBS. Pt states she wears pad for bladder leakage,Pt states recently had bladder biopsy. Pt c/o vulvar irritation/redness. Denies vaginal bleeding/spotting. Visit Vitals BP 130/76 Wt 164 lb BMI 30.00 kg/m Smoking Status Never BSA 1.8 m Allergies Allergen Reactions Iodinated Contrast Media Other, Shortness of breath and Unknown Amoxicillin Unknown Iodine Unknown Sulfa Antibiotics Unknown Wasp Venom Other Reaction(s): Anaphylaxis Penicillin G Rash History of Present Illness, Associated Treatments and Results - OB History Para Term AB Living 2 2 1 1 0 0 SAB IAB Ectopic Multiple Live Births 0 0 0 0 0 # Outcome Date GA Lbr Chang/2nd Weight Sex Type Anes PTL Lv 2 1 Term Obstetric Comments Pap smear 02/02/22 wnl, Mammogram 02/03/24 wnl, DEXA 11/21/23 osteopenia @ [place] Review of Systems - General: Chills denies. Allergy/Immunology: Rash Denies. ENT: Denies Difficulty swallowing. Endocrine: Denies Cold intolerance denies. Heat intolerance denied. Respiratory: Denies Chest pain denies. Shortness of breath denies. Breast: Denies Bloody nipple discharge denies. Breast lump denies. Cardiovascular: Denies Chest pain. Gastrointestinal: Abdominal pain denies. Blood in stool denies. Hematology: Easy bruising denies. Prolonged bleeding denies. Women Only: Breast lump denies. Vaginal bleeding between periods is denied. Vaginal discharge/itching denied. Genitourinary: Blood in urine denies. Painful urination denies. Incontinence denies. Skin: Hair changes. Neurologic: Seizures denied. Stroke denies. Psychiatric: Anxiety denies. Depressed mood denies. Medication Documentation Review Audit Reviewed by Renita Lucia MA (Furnace Installer) on 04/16/24 at 1057 Medication Order Taking? Sig Documenting Provider Last Dose Status albuterol HFA 90 mcg/act inhaler [id number] No Inhale 2 puffs Madison Burns DO Taking Active amLODIPine (Norvasc) 5 MG tablet [id number] No Refills(s) 0 Madison Burns DO Taking Active atorvastatin (Lipitor) 10 MG tablet [id number] No 1 (one) time each day at the same time Madison Burns DO Taking Active azelastine (Astelin) 0.1 % nasal spray [id number] No Administer 2 sprays into each nostril in the morning and 2 sprays before bedtime. Use in each nostril as directed. Charito Vasquez MD Taking Active betamethasone valerate (Valisone) 0.1 % cream [id number] APPLY TO THE AFFECTED AREA TWICE A DAY Madison Burns DO Active betamethasone valerate (Valisone) 0.1 % ointment [id number] APPLY TO THE AFFECTED AREA EXTERNALLY TWO TIMES A DAY, REPLACES PREVIOUS SENT SCRIPT Madison Burns DO Active budesonide (Pulmicort) 0.5 MG/2ML nebulizer solution [id number] Take 2 mL (0.5 mg) by nebulization in the morning. Rinse mouth with water after use to reduce aftertaste and incidence of candidiasis. Do not swallow.. Charito Vasquez MD Active cetirizine (ZyrTEC) 10 MG tablet [id number] Take 1 tablet (10 mg) by mouth Daily as needed for allergies Marci Alberts MD Active doxycycline (Adoxa) 100 MG tablet [id number] No Take 100 mg by mouth in the morning and 100 mg before bedtime. Take with a full glass of water and do not lie down for at least 30 minutes after. Marci Alberts MD Taking Active EpiPen 2-Giovani 0.3 MG/0.3ML injection syringe [id number] No as directed Injection Madison Burns DO Taking Active estradiol (Estrace) 0.1 MG/GM vaginal cream [id number] No See Instructions, 42.5 gm, Refill(s) 0, apply pea sized amount to urethra 2x/wk, [facility], 158, cm, 02/20/23 8:48:00 EST, Height/Length Dosing, 68.5, kg, 02/20/23 8:48:00 EST, Weight Dosing Madison Burns DO Taking Active famotidine (Pepcid) 20 MG tablet [id number] No Take by mouth Madison Burns DO Taking Active fluocinonide (Lidex) 0.05 % external solution [id number] No Apply to affected areas on the scalp, up to twice a day when flared, 30 day supply Ama Mclaughlin, [employer] Taking Active fluticasone (Flonase) 50 MCG/ACT nasal spray [id number] No Administer 2 sprays into each nostril Daily Shake gently. Before first use, prime pump. After use, clean tip and replace cap. Marci Alberts MD Taking Active Fluticasone Propionate (Xhance) 93 MCG/ACT Exhaler Suspension [id number] Administer 1 spray into affected nostril(s) in the morning and 1 spray before bedtime. Charito Vasquez MD Active Fosamax 70 MG tablet [id number] No 1 tablet 30 minutes before the first food, beverage or medicine of the day with plain water Orally for 30 day(s) Madison Burns DO Taking Active guaiFENesin-codeine (Robitussin-AC) 100-10 MG/5ML syrup [id number] No Take 5 mL by mouth 3 (three) times a day as needed Taking Active levothyroxine (Synthroid, Levoxyl) 88 MCG tablet [id number] No 1 (one) time each day at the same time Madison Burns DO Taking Active loratadine-pseudoephedrine ER (Claritin-D 12-hour) 5-120 MG 12 hr tablet [id number] No Take 1 tablet by mouth in the morning and 1 tablet before bedtime. Do not crush, chew, or split.. Charito Vasquez MD Taking Active metoclopramide (Reglan) 10 MG tablet [id number] No Take 10 mg by mouth in the morning and 10 mg at noon and 10 mg in the evening and 10 mg before bedtime. Taking Active montelukast (Singulair) 10 MG tablet [id number] No 1 (one) time each day at the same time Madison Burns DO Taking Active pantoprazole (ProtoNix) 40 MG EC tablet [id number] Take 1 tablet (40 mg) by mouth in the morning and 1 tablet (40 mg) before bedtime. Do not crush, chew, or split.. Charito Vasquez MD Active predniSONE (Deltasone) 20 MG tablet [id number] No Take 20 mg by mouth Daily Taking Active RA Vitamin D-3 50 MCG (1999) capsule [id number] No Take 50 mcg by mouth in the morning. Madison Burns DO Taking Active Past Medical History: Diagnosis Date Abnormal Pap smear of cervix Arthritis Aspiration into airway, initial encounter Asthma (CMS/[facility]) Cataract Chronic hoarseness Episodic tension-type headache, not intractable 02/06/2016 GERD (gastroesophageal reflux disease) Graves disease (CMS/HCC) Hyperlipidemia (CMS/HCC) Hypertension (CMS/HCC) Irritable bowel syndrome with predominant constipation LPRD (laryngopharyngeal reflux disease) Lung field abnormal 06/27/2023 Mild persistent chronic asthma without complication (CMS/HCC) Osteoporosis (CMS/HCC) Personal history of other medical treatment right wrist repair Pharyngoesophageal dysphagia Recurrent UTI 06/27/2023 Seasonal allergic rhinitis due to pollen Spondylosis cervical and lumbar Stomach ulcer Torn rotator cuff Unspecified eustachian salpingitis, bilateral Past Surgical History: Procedure Laterality Date CATARACT EXTRACTION SECTION, LOW TRANSVERSE CHOLECYSTECTOMY COLONOSCOPY 05/2023 COLPOSCOPY 1989 WITH BIOPSY CYSTOSTOMY W/ BLADDER BIOPSY DILATION AND CURETTAGE OF UTERUS EGD 2005 PROSTATE SURGERY radiation therapy;Disease:graves dz ROTATOR CUFF REPAIR Right 10/2018 TUBAL LIGATION WISDOM TOOTH EXTRACTION WRIST SURGERY Right torn cartilage in right wrist repair Family History Problem Relation Name Age of Onset Pancreatic cancer Mother Lung cancer Mother Diabetes Mother Hypertension Mother Breast cancer Sister Heart disease Sister Cancer Sister Melanoma Neg Hx Physical Exam - General appearance, mentation, extraocular movements, facial strength and movement, hearing, upper and lower extremity strength and tone, sensation to gross testing, coordination, and gait are normal or at baseline unless noted below. General Examination: GENERAL APPEARANCE: alert oriented well developed, well nourished. HEAD: normocephalic atraumatic. EYES: sclera anicteric. EARS: no obvious hearing deficit. SKIN: warm and dry. HEART: regular rate and rhythm. LUNGS: clear to auscultation bilaterally. CHEST: axillary nodes grossly normal. BREASTS: no masses palpable bilaterally, normal nipples bilaterally. ABDOMEN: soft, nontender, nondistended, no masses palpable. BACK: no costovertebral angle tenderness, no obvious scoliosis/kyphosis. FEMALE GENITOURINARY: vulvar inflammation, atrophic vaginal mucosa, narrowing at apex, cervix absent of lesions, nontender, stenotic os, uterus AV, mobile, ovaries nonpalpable and nontender. EXTREMITIES: no edema. NEUROLOGIC: alert and oriented. PSYCH: cooperative with exam. Diagnoses and all orders for this visit: Encounter for gynecological examination without abnormal finding Screening for malignant neoplasm of cervix - IGP, RFX APTIMA HPV ASCU Encounter for screening mammogram for breast cancer - Bilateral screening mammogram with tomosynthesis Lichen sclerosus et atrophicus - clobetasol (Temovate) 0.05 % ointment; Apply topically 2 (two) times a day for 7 days Screening for osteoporosis - DEXA bone density Postmenopausal status, age-related - DEXA bone density Pap, pelvic and breast exam completed. Findings of today's exam discussed with the patient. Continue MSBE. Ca/Vit D recommendations reviewed with the patient. The patient is to contact the office with any changes to her gynecological condition. The patient is to return in 1 year or as needed ICD-10-CM 1. Encounter for gynecological examination without abnormal finding Z01.419 2. Screening for malignant neoplasm of cervix Z12.4 IGP, RFX APTIMA HPV ASCU 3. Encounter for screening mammogram for breast cancer Z12.31 Bilateral screening mammogram with tomosynthesis 4. Lichen sclerosus et atrophicus L90.0 clobetasol (Temovate) 0.05 % ointment 5. Screening for osteoporosis Z13.820 DEXA bone density 6. Postmenopausal status, age-related Z78.0 DEXA bone density documented in this encounter [facility] 04-07-2024 Note Progress Note-Physic starla Patient: MUNIRA CHESTER Age: 73 years Sex: Female : 1950 Associated Diagnoses: None Author: MD Doug, Debbie Barrera Postoperative Information Postoperative disposition: Postoperative disposition: To PACU. Optimetrix number: Optimetrix number [id number]. Anesthetic utilized: General. Health Status Allergies: Allergic Reactions (Selected) Severity Not Documented Amoxicillin- Rash. Bee Stings- Hives and sob - shortness of breath. Contrast media (iodine-based)- Hives and sob - shortness of breath. Sulfa drugs- Angio-oedema. Physical Examination VS/Measurements Pain Assessment: Controlled. General: Awake, Alert, Appropriate. [...] when meets criteria ( To home ). [facility] Comment on above: Result Comment: Elec tronically Signed By: MD Camacho Ahmad F\.br\Date and Time Signed: 04/07/24 17:50 EST 04-07-2024 Note Progress Note-Physic starla Patient: MUNIRA CHESTER Age: 73 years Sex: Female : 1950 Associated Diagnoses: None Author: MD Doug, Debbie Barrera Preoperative Information Time patient last ate or drank:=== (npo 8 hours) Anesthesia history: Patient history: No prior anesthesia problems. Re-evaluation prior to induction: Completed, Initial evaluation reviewed. Review of Systems Respiratory: No shortness of breath. Cardiovascular: No chest pain. Hematology/Lymphatics: No bruising tendency, No bleeding tendency. Health Status Allergies: Allergic Reactions (All) Severity Not Documented Amoxicillin- Rash. Bee Stings- Hives and sob - shortness of breath. Contrast media (iodine-based)- Hives and sob - shortness of breath. Sulfa drugs- Angio-oedema. Canceled/Inactive Reactions (All) Severity Not Documented Iodine- Unknown. Penicillin- Rash. Current medications: (Selected) Prescriptions Prescribed Cipro 500 mg Tab: 500 mg = 1 tab(s), Oral, q12hr, Start morning of white removal in 1-2 days, X 1 day(s), # 2 tab(s), Refills(s) 0, Pharmacy: [facility], 158, cm, 03/24/24 11:38:00 EST, Height/Length Dosing, 75.5, kg, 03/24/24 11:38:00 EST, Weight Dosing... Macrobid 100 mg Cap: 100 mg = 1 cap(s), Oral, As Directed, take 1 tablet within 1 hour before or after intercourse to prevent infection., # 30 cap(s), Refills(s) 3, Pharmacy: [facility], 158, cm, 02/20/23 8:48:00 EST, Height/Length Dosing, 68.5, kg,... Pantoprazole [address] Tab: 40 mg = 1 tab(s), Oral, Daily, # 90 tab(s), Refills(s) 1, [id number] [facility], 154.9, cm, 12/11/19 9:26:00 EDT, Height/Length Dosing, 70.2, kg, 12/11/19 9:26:00 EDT, Weight Dosing estradiol 0.1 mg/g Vag Crm: See Instructions, 42.5 gm, Refill(s) 0, apply pea sized amount to urethra 2x/wk, [facility], 158, cm, 02/05/24 11:08:00 EST, Height/Length Dosing, 62, kg, 02/05/24 11:08:00 EST, Weight Dosing oxybutynin 5 mg Tab: 5 mg = 1 tab(s), Oral, TID, PRN bladder spasms, # 30 tab(s), Refills(s) 0, Pharmacy: [facility], 158, cm, 03/24/24 11:38:00 EST, Height/Length Dosing, 75.5, kg, 03/24/24 11:38:00 EST, Weight Dosing Documented Medications Documented Breo Ellipta 200 mcg-25 mcg/inh inhalation powder: 1 inh, Refill(s) 0 Calcium with Vitamin D and Minerals oral tablet: tab(s), Oral, BID, Refill(s) 0 EpiPen 2-Giovani: 0.3 mg, IntraMuscular, Once, PRN Anaphylaxis, Refills(s) 0 Ferrex-150: 150 mg, Oral, Every other day, Refills(s) 0, Prophylaxis Fosamax 70 mg Tab: 70 mg = 1 tab(s), Oral, qWeek, Refills(s) 0, Prophylaxis Hair, Skin & Nails 5 mg oral capsule: mg, cap(s), Oral, Daily, Refill(s) 0 Multi Vitamins oral tablet: 1 tab(s), Oral, Daily, 30 tab(s), Refill(s) 0 ProAir HFA 90 mcg/inh inhalation aerosol: 2 puff(s), Inhalation, q4hr Shortness of breath or wheezing, Refill(s) 0 Vitamin D3: Oral, Daily, Refills(s) 0, Prophylaxis Xhance 93 mcg/inh nasal spray: mcg, spray(s), BID, Refill(s) 0 Zyrtec: Daily, Refills(s) 0 amLODIPine 5 mg Tab: 5 mg = 1 tab(s), Oral, Daily, Refills(s) 0, High blood pressure atorvastatin 10 mg Tab: 10 mg = 1 tab(s), Oral, Daily, Refills(s) 0, High cholesterol famotidine 20 mg Tab: mg tab(s), Oral, BID, Refills(s) 0, Control of stomach acid fluticasone 0.05 mg/inh Nasal [place]: 2 spray(s), Nasal, Daily, Refill(s) 0 levothyroxine 100 mcg (0.1 mg) Tab: 100 mcg = 1 tab(s), Oral, Daily, Refills(s) 0, Thyroid montelukast 10 mg Tab: 10 mg = 1 tab(s), Oral, qPM, # 90 tab(s), Refills(s) 0, Asthma orphenadrine compounding powder: PRN Migraine headache, Refills(s) 0 Problem list: All Problems Acute allergic rhinitis due to pollen / SNOMED CT 50369729 / Confirmed Benign essential hypertension / SNOMED CT 3547288 / Confirmed GERD (gastroesophageal reflux disease) / SNOMED CT 214977996 / Confirmed Lumbar spondylosis / SNOMED CT 513442051 / Confirmed Cervical spondylosis / SNOMED CT 1010014743 / Confirmed History of gastric ulcer / SNOMED CT 617713237 / Confirmed Osteopenia of lumbar spine / SNOMED CT 748696821 / Confirmed Hyperlipidemia / SNOMED CT 03408735 / Confirmed Hypothyroidism, acquired, autoimmune / SNOMED CT 417897078 / Confirmed Chronic tension headache / SNOMED CT 748417664 / Confirmed Mild persistent asthma / SNOMED CT 9758839804 / Confirmed Bilateral cataracts / SNOMED CT 092635394 / Confirmed Migraine / SNOMED CT 73601045 / Confirmed Duodenal stricture / SNOMED CT 80266417 / Confirmed H/O gastric ulcer / SNOMED CT 031974360 / Confirmed Personal history of colonic polyps / SNOMED CT 6469841638 / Confirmed Epigastric pain / SNOMED CT 649979198 / Confirmed Abdominal bloating / SNOMED CT 107324842 / Confirmed Graves disease / SNOMED CT 755786330 / Confirmed Hypertension / SNOMED CT 5924287066 / Confirmed Asthma / SNOMED CT 629837225 / Confirmed Arthritis / SNOMED CT 5979345 / Confirmed Urinary tract infection / SNO (more content not included)... [facility] Comment on above: Result Comment: Elec tronically Signed By: MD Camacho Ahmad F\.br\Date and Time Signed: 04/07/24 17:50 EST 04-07-2024 Evaluation + Plan note Extrac radha from: Title:ANES Post Op - General Author:MD Camacho Ahmad F Date:04/07/24 Plan Transfer/Discharge: Transfer/Discharge Discharge when meets criteria ( To home ). Extracted from: Title:EU- Cystoscopy, urethral tumor biopsy Auth or:Asuncion Buchanan MD. 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 Urethral caruncle (JRQ94-DV N36.2, Discharge, Medical). 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 Urethral caruncle ([id number]-QH N36.2, Discharge, Medical). Extracted from: Title:ANES Pre Op - Adult General Author:Gi mayer MD, Ahmad F Date:04/07/24 Plan [place] [employer] (ASA) physical status classification: Class III. Anesthetic Preoperative Plan Anesthesia: General. . Anesthetic plan, risks, benefits, and alternatives discussed with the patient and/or family. Risks discussed: nausea, vomiting, headache, sore throat, dental injury, serious complications. Patient verbalized understanding. Communication: face to face with patient 5 minutes. Future Appointments Appointment Date:04/22/2024 10:45:00 AM Scheduled Provider:Asuncion Buchanan MD Location:[facility] Appointment Type:URO Office Visit [facility] 01-21-2025 Hospital Discharge instructions Patient Education 04/07/2024 10:47:43 White Catheter Care, Female-[facility] [place] (CUSTOM) White Catheter Care, Female A White catheter is a soft, flexible tube that is placed into the bladder to drain urine. The catheter has a balloon to hold it inside the bladder. A White catheter may be inserted if: You leak urine or are not able to control when you urinate (urinary incontinence). You are not able to urinate when you need to (urinary retention). You had surgery. You have certain medical conditions, such as multiple sclerosis, dementia, or a spinal cord injury. To Prevent Infection: 1. Wash your hands with soap and water before and after handling your catheter. 2. Using mild soap and warm water on a clean washcloth; twice a day. Clean the area on your body closest to the catheter insertion site using a front to back motion, moving away from the catheter. Never wipe toward the catheter because this could sweep bacteria up into the urethra and cause infection. Remove all traces of soap. Pat the area dry with a clean towel. No tub baths. No lotions, powders, or sprays unless directed by your physician. 3. Keep the tube secure. Do not let the tube pull or catch when you are moving around. Attach the catheter to your leg so there is no tension on the catheter. The bag can be wore on the thigh. Use adhesive tape or a leg strap. If you are using adhesive tape, remove any sticky residue left behind by the previous tape you used. 4. Replace wet leg straps with dry ones. 5. Wear cotton underwear to absorb moisture and keep kier drier. 6. Keep the drainage bag below the level of the bladder, but keep it off the floor. 7. Check throughout the day to be sure the catheter is working and urine is draining freely. Make sure the tubing does not become kinked or looped. 8. Do not pull on the catheter or try to remove it. Pulling could damage internal tissues. TAKING CARE OF THE DRAINAGE BAGS You will be given two drainage bags to take home. One is a large overnight drainage bag, and the other is a smaller leg bag that fits underneath clothing. You may wear the overnight bag at any time, but you should never wear the smaller leg bag at night, unless directed by your physician. Follow the instructions below for how to empty and change your drainage bags. Emptying the Drainage Bag You must empty your drainage bag when it is ? full. 1. Wash your hands with soap and water before and after handling your catheter. 2. Keep the drainage bag below your hips, below the level of your bladder. This stops urine from going back into the tubing and into your bladder. 3. Hold the dirty bag over the toilet or a clean container. 4. Open the pour spout at the bottom of the bag and empty the urine into the toilet or container. Do not let the pour spout touch the toilet, container, or any other surface. Doing so can place bacteria on the bag, which can cause an infection. 5. Clean the pour spout with a gauze pad or cotton ball that has rubbing alcohol on it. 6. Close the pour spout. 7. Attach the bag to your leg with adhesive tape or a leg strap. Changing the Drainage Bag 1. Wash your hands with soap and water before and after handling your catheter. 2. Pinch off the rubber catheter so that urine does not spill out. 3. Disconnect the catheter tube from the drainage tube at the connection valve. Do not let the tubes touch any surface. 4. Clean the end of the catheter tube with an alcohol wipe. Use a different alcohol wipe to clean the end of the drainage tube. 5. Connect the catheter tube to the drainage tube of the clean drainage bag. 6. Attach the new bag to the leg with adhesive tape or a leg strap. Avoid attaching the new bag tootightly. 7. Place a cap on the drainage bag not in use and store in a clean towel. SEEK MEDICAL CARE IF: Your urine is cloudy or smells. Your catheter starts to leak. Your catheter falls out or is pulled out. You have pain, swelling, redness, or pus where the catheter enters the body. You have pain in the abdomen, legs, lower back, or bladder. You have a fever of 100.4 F (38 C) or higher You see pink, red, dark, coffee colored, or pus-like urine. You have nausea, vomiting, or chills. You are not feeling better in 2 to 3 days or you are feeling worse. You are not draining urine into the bag or your bladder feels full. MAKE SURE YOU: Understand the reason you have the catheter. Understand and follow these instructions to care for the catheter. Will watch your condition. Drink 6-8 glasses of water or liquids per day to keep your urine clear. Avoid Caffeinated drinks. They can irritate the bladder and cause bladder spasms. Keep your follow up appointments and call with any concerns. 04/07/2024 10:40:16 Post Op Patient Instructions - FT (Custom) (CUSTOM) 04/07/2024 10:38:45 Shahzad - Post Op INstructions for Bladder Tumor, Bladder Biopsy (CUSTOM) [facility] [place], [place] Post-Operative Instructions *Even though there are no visible incisions, the urethra is quite raw on the inside and you need tofollow some instructions to minimize the risks of bleeding and disturbing the area over the next 4 weeks. *The catheter in the bladder will be irritating, sometimes causing a strong desire to urinate. Often patients will experience urine leakage around catheter, as well as some blood in the urine. These same symptoms may persist even after the catheter is removed. *You have a leg bag to hold the urine, which will need emptied to avoid urine backup. You may wash around the catheter entrance site with soap and water. You may also an antibiotic ointment, such as Bacitracin or Neomycin. DIET You may resume your normal diet, but you may want to avoid alcohol, carbonated drinks, caffeine, and spicy foods, which may increase the irritation from the surgery and the catheter. Drink plenty of fluids to keep the urine clear. ACTIVITY You should limit any physical activity, especially over the first 2 weeks. *No heavy lifting or straining (10 pound limit) *No driving a car and limit long car rides for 1-2 weeks *No strenuous exercise *Showering is OK, even while the catheter is in *Light activity, such as walking, is encouraged, as you are able (stairs are ok) BOWELS Try to keep your bowel movements soft to minimize straining to have a bowel movement. You may use astool softener or over the counter laxative if needed. Difficult bowel movements may lead to straining and bleeding from the prostate. MEDICATIONS *You may resume your home medications unless instructed otherwise Ok to resume aspirin, ibuprofen, Coumadin (warfarin) and other blood thinners in 1 day *Take your prescribed medications as directed, including your antibiotics - start morning of white removal in 1-2 days once there is no bleeding * AZO (phenazopyridine) can be purchased [id number] for burning with urination. This will make your urine orange. *Oxybutynin 5 mg 3 times a day as needed for bladder spasms. This may cause dry mouth, dry eyes andconstipation. Drink plenty of fluids and take stool softeners. *Tylenol alternated with ibuprofen every 6 hours can be used for pain. Things to watch for which would require an Emergency Room visit or call 911: (this is not a complete list) *Persistent or heavy bleeding or blood clots clogging the catheter *Fever over 101.5 degrees Fahrenheit, with or without chills. *Severe drug reactions, with itching, hives, or rash *Tenderness or swelling of the calves, chest pain, or shortness of breath Please call the office to arrange for your post-operative appointment and to remove the catheter ifyou do not hear from us by tomorrow. ([phone] or [phone]) Follow Up Care 02/24/2024 10:45:49 With:Asuncion Buchanan Address: [facility] Eder Mccann, [address] [address] [phone] Business (1) When: Unknown Comments:Office to call to schedule your follow up: white removal and voiding trial in 1-2 days once urine is clear. Follow up in 1-2 weeks for pathology review. [facility] 01-21-2025 NotePatient Education - Text White Catheter Care, Female A White catheter is a soft, flexible tube that is placed into the bladder to drain urine. The catheter has a balloon to hold it inside the bladder. A White catheter may be inserted if: ??? You leak urine or are not able to control when you urinate (urinary incontinence). ??? You are not able to urinate when you need to (urinary retention). ??? You had surgery. ??? You have certain medical conditions, such as multiple sclerosis, dementia, or a spinal cord injury. To Prevent Infection: 1. Wash your hands with soap and water before and after handling your catheter. 2. Using mild soap and warm water on a clean washcloth; twice a day. ??? Clean the area on your body closest to the catheter insertion site using a front to back motion, moving away from the catheter. Never wipe toward the catheter because this could sweep bacteria upinto the urethra and cause infection. ??? Remove all traces of soap. Pat the area dry with a clean towel. No tub baths. No lotions, powders, or sprays unless directed by your physician. 3. Keep the tube secure. Do not let the tube pull or catch when you are moving around. ??? Attach the catheter to your leg so there is no tension on the catheter. The bag can be wore on the thigh. Use adhesive tape or a leg strap. If you are using adhesive tape, remove any sticky residue left behind by the previous tape you used. 4. Replace wet leg straps with dry ones. 5. Wear cotton underwear to absorb moisture and keep kier drier. 6. Keep the drainage bag below the level of the bladder, but keep it off the floor. 7. Check throughout the day to be sure the catheter is working and urine is draining freely. Make sure the tubing does not become kinked or looped. 8. Do not pull on the catheter or try to remove it. Pulling could damage internal tissues. TAKING CARE OF THE DRAINAGE BAGS You will be given two drainage bags to take home. One is a large overnight drainage bag, and the other is a smaller leg bag that fits underneath clothing. You may wear the overnight bag at any time, but you should never wear the smaller leg bag at night, unless directed by your physician. Follow the instructions below for how to empty and change your drainage bags. Emptying the Drainage Bag You must empty your drainage bag when it is ? full. 1. Wash your hands with soap and water before and after handling your catheter. 2. Keep the drainage bag below your hips, below the level of your bladder. This stops urine from going back into the tubing and into your bladder. 3. Hold the dirty bag over the toilet or a clean container. 4. Open the pour spout at the bottom of the bag and empty the urine into the toilet or container. Do not let the pour spout touch the toilet, container, or any other surface. Doing so can place bacteria on the bag, which can cause an infection. 5. Clean the pour spout with a gauze pad or cotton ball that has rubbing alcohol on it. 6. Close the pour spout. 7. Attach the bag to your leg with adhesive tape or a leg strap. Changing the Drainage Bag 1. Wash your hands with soap and water before and after handling your catheter. 2. Pinch off the rubber catheter so that urine does not spill out. 3. Disconnect the catheter tube from the drainage tube at the connection valve. Do not let the tubes touch any surface. 4. Clean the end of the catheter tube with an alcohol wipe. Use a different alcohol wipe to clean the end of the drainage tube. 5. Connect the catheter tube to the drainage tube of the clean drainage bag. 6. Attach the new bag to the leg with adhesive tape or a leg strap. Avoid attaching the new bag tootightly. 7. Place a cap on the drainage bag not in use and store in a clean towel. SEEK MEDICAL CARE IF: ??? Your urine is cloudy or smells. ??? Your catheter starts to leak. ??? Your catheter falls out or is pulled out. ??? You have pain, swelling, redness, or pus where the catheter enters the body. ??? You have pain in the abdomen, legs, lower back, or bladder. ??? You have a fever of 100.4 F (38 C) or higher ??? You see pink, red, dark, coffee colored, or pus-like urine. ??? You have nausea, vomiting, or chills. ??? You are not feeling better in 2 to 3 days or you are feeling worse. ??? You are not draining urine into the bag or your bladder feels full. MAKE SURE YOU: ??? Understand the reason you have the catheter. ??? Understand and follow these instructions to care for the catheter. ??? Will watch your condition. ??? Drink 6-8 glasses of water or liquids per day to keep your urine clear. ??? Avoid Caffeinated drinks. They can irritate the bladder and cause bladder spasms. ??? Keep your follow up appointments and call with any concerns. [facility] [place], [place] Post-Operative [facility] (more content not included)...[facility] 02-24-2024 Evaluation + Plan noteExtracted from: Title:EU- Clinic note Author:Dewayne VILLEGAS, Asuncion Singer te:02/24/24 Impression and Plan 73 yo female here for follow up of stress predominant mixed urinary incontinence and recurrent UTIs, here for cysto/pelvic exam. Reports hx of mesh for uterus, complicated by infection and removed 3 years later. 1. 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 Discussed risk benefits of biopsy to confirm no malignancy. Patient agrees to proceed. -Follow up urine cytology from today -Will schedule cystoscopy, urethral biopsy with fulguration under anesthesia. Patient understands she will need catheter for 1 to 2 days. Risks discussed including but not limited to bleeding, pain, infection, damage to surrounding structures and need for additional procedures. -Voided specimen sent for cytology post cystoscopy. 2. ISD BBS 23(17-19.4) Continues to have leaking with urgency and coughing/sneezing. Mostly during the night, gets up ~3/night to void, wears pads that she has to change at least every 2 hours. Stress predominant mixed incontinence. ISD confirmed today. Patient leaks when she stands up, without urge. PVR 01/31/22 - 0ml 01/2024 - 0 ml We discussed risks/benefits of urethral bulking agent Bulkamid, a non- particulate homogenous hydrogel consisting of 97.5% water and 2.5% polyacrylamide. At 1 year, overall 77-83% success rate is reported; 92% subjectively improved and 66% objectively dry in Bulkamid group vs 100% subjectively cured and 95% dry with TVT. At 7 years, 67.1% of the Bulkamid patients reported feeling cured or improved, 11.1% no change, and 2.3% worsening of incontinence. 19.5% of patients received a subsequent other incontinence procedure. 0% serious complications were reported with Bulkamid vs 9% serious complications with TVT including difficulty emptying bladder, chronic pain, tape protrusion or erosion. Postoperative complications were transient. Prolonged bladder emptying time was reported in 15.3% of patients and urinary tract infection in 3.5%. Risks of requiring straight cath or temporary catheter were discussed. -Will schedule Bulkamid under anesthesia once biopsy results. 3. Urethral caruncle (N36.2: Urethral caruncle) Stopped using Estrace cream, states it wasn't working to help with her incontinence. Advised pt that the Estrace cream was to help with her recurrent UTI's and to start using this again. Pt voiced her understanding. Re started estrace cream last visit (02/05/24) -Irritated/abnormal appearing caruncle, proceed with bx as above Future Appointments Appointment Date:03/24/2024 07:30:00 AM Scheduled Provider: Location:[facility] Appointment Type:Surgical PAT FT Appointment Date:04/07/2024 09:30:00 AM Scheduled Provider: Location:[facility] Appointment Type:Surgery FT Diagnostic Tests Pending * Urine Cytology ([facility]) 02/24/24 [facility] 12-09-2024 NoteProgress Note-Physician Patient: MUNIRA CHESTER Age: 73 years Sex: Female : 1950 Associated Diagnoses: None Author: Dewayne VILLEGAS, Asuncion [place] Health Status Allergies: Allergic Reactions (Selected) Severity Not Documented Bee Stings- Hives and sob - shortness of breath. Contrast media (iodine-based)- Sob - shortness of breath and hives. Penicillin- Rash. Sulfa drugs- Angio-oedema., Allergies (4) Active Severity Reaction contrast media (iodine-based) Hives, SOB - Shortness of breath Bee Stings Hives, SOB - Shortness of breath penicillin Rash sulfa drugs Angio-oedema Current medications: (Selected) Prescriptions Prescribed Macrobid 100 mg Cap: 100 mg = 1 cap(s), Oral, As Directed, take 1 tablet within 1 hour before or after intercourse to prevent infection., # 30 cap(s), Refills(s) 3, Pharmacy: [facility], 158, cm, 02/20/23 8:48:00 EST, Height/Length Dosing, 68.5, kg,... Pantoprazole [address] Tab: 40 mg = 1 tab(s), Oral, Daily, # 90 tab(s), Refills(s) 1, Pharmacy: [facility] [facility], 154.9, cm, 12/11/19 9:26:00 EDT, Height/Length Dosing, 70.2, kg, 12/11/19 9:26:00 EDT, Weight Dosing estradiol 0.1 mg/g Vag Crm: See Instructions, 42.5 gm, Refill(s) 0, apply pea sized amount to urethra 2x/wk, thereNow #72, 158, cm, 02/05/24 11:08:00 EST, Height/Length Dosing, 62, kg, 02/05/24 11:08:00 EST, Weight Dosing Documented Medications Documented Breo Ellipta 200 mcg-25 mcg/inh inhalation powder: 1 inh, Refill(s) 0 Calcium with Vitamin D and Minerals oral tablet: tab(s), Oral, BID, Refill(s) 0 EpiPen 2-Giovani: 0.3 mg, IntraMuscular, Once, PRN Anaphylaxis, Refills(s) 0 Ferrex-150: 150 mg, Oral, Every other day, Refills(s) 0, Prophylaxis Fosamax 70 mg Tab: 70 mg = 1 tab(s), Oral, qWeek, Refills(s) 0, Prophylaxis Hair, Skin & Nails 5 mg oral capsule: mg, cap(s), Oral, Daily, Refill(s) 0 Multi Vitamins oral tablet: 1 tab(s), Oral, Daily, 30 tab(s), Refill(s) 0 ProAir HFA 90 mcg/inh inhalation aerosol: 2 puff(s), Inhalation, q4hr Shortness of breath or wheezing, Refill(s) 0 Vitamin D3: Oral, Daily, Refills(s) 0, Prophylaxis Xhance 93 mcg/inh nasal spray: mcg, spray(s), BID, Refill(s) 0 Zyrtec: Daily, Refills(s) 0 amLODIPine 5 mg Tab: 5 mg = 1 tab(s), Oral, Daily, Refills(s) 0, High blood pressure atorvastatin 10 mg Tab: 10 mg = 1 tab(s), Oral, Daily, Refills(s) 0, High cholesterol famotidine 20 mg Tab: mg tab(s), Oral, BID, Refills(s) 0, Control of stomach acid fluticasone 0.05 mg/inh Nasal Bombay: 2 spray(s), Nasal, Daily, Refill(s) 0 levothyroxine 88 mcg (0.088 mg) Tab: 88 microgram = 1 tab(s), Oral, Daily, Refills(s) 0, Thyroid montelukast 10 mg Tab: 10 mg = 1 tab(s), Oral, qPM, # 90 tab(s), Refills(s) 0 orphenadrine compounding powder: Refills(s) 0 Impression and Plan 73 yo female here for follow up of stress predominant mixed urinary incontinence and recurrent UTIs, here for cysto/pelvic exam. Reports hx of mesh for uterus, complicated by infection and removed 3 years later. 1. 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 Discussed risk benefits of biopsy to confirm no malignancy. Patient agrees to proceed. -Follow up urine cytology from today -Will schedule cystoscopy, urethral biopsy with fulguration under anesthesia. Patient understands she will need catheter for 1 to 2 days. Risks discussed including but not limited to bleeding, pain, infection, damage to surrounding structures and need for additional procedures. -Voided specimen sent for cytology post cystoscopy. 2. ISD BBS 23(17-19.4) Continues to have leaking with urgency and coughing/sneezing. Mostly during the night, gets up ~3/night to void, wears pads that she has to change at least every 2 hours. Stress predominant mixed incontinence. ISD confirmed today. Patient leaks when she stands up, without urge. PVR 01/31/22 - 0ml 01/2024 - 0 ml We discussed risks/benefits of urethral bulking agent Bulkamid, a non- particulate homogenous hydrogel consisting of 97.5% water and 2.5% polyacrylamide. At 1 year, overall 77-83% success rate is reported; 92% subjectively improved and 66% objectively dry in Bulkamid group vs 100% subjectively curedand 95% dry with TVT. At 7 years, 67.1% of the Bulkamid patients reported feeling cured or improved, 11.1% no change, and 2.3% worsening of incontinence. 19.5% of patients received a subsequent otherincontinence procedure. 0% serious complications were reported with Bulkamid vs 9% serious complications with TVT including difficulty emptying bladder, chronic pain, tape protrusion or erosion. Postoperative complications were transient. Prolonged bladder emptying time was reported in 15.3% of patients and urinary tract infection in 3.5%. Risks of requiring straight cath or temporary catheter were discussed. -Will schedule Bulkamid under anesthesia once biopsy results. 3. Ure (more content not included)...[facility]:Result Comment: Electronically Signed By: Dewayne VILLEGAS, Asuncion [place]\.melissa\Date and Time Signed: 02/24/24 [id number] Hospital Discharge instructions Patient Education 02/24/2024 10:20:28 EU - Cystoscopy Discharge Instructions (CUSTOM) Cystoscopy Voiding after the procedure: there may be some pain, burning, urgency, frequency and blood tinged urine following the procedure. These symptoms usually resolve within 2-5 days. Drink the amount of fluid it takes to keep the urine pink to yellow or clear in color. Drinking enough water and fluids will help to ease any discomfort after your procedure. If you are having problems that seem out of the ordinary, please call. If unable to contact your physician and you feel it is an emergency, go to the nearest emergency room or call 911 Diet you may resume your normal diet. Activity you may resume your normal activities Call if you have a fever over 100 degrees. Follow Up Care 02/05/2024 11:56:37 With:Asuncion Buchanan Address:Unknown When: Unknown Comments:Office to schedule follow up: cysto, urethral biopsy with fulguration under anesthesia [facility] 12-09-2024 NotePatient Education Cystoscopy ??? Voiding after the procedure: there may be some pain, burning, urgency, frequency and blood tinged urine following the procedure. These symptoms usually resolve within 2-5 days. Drink the amount of fluid it takes to keep the urine pink to yellow or clear in color. Drinking enough water and fluids will help to ease any discomfort after your procedure. ??? If you are having problems that seem out of the ordinary, please call. ??? If unable to contact your physician and you feel it is an emergency, go to the nearest emergency room or call 911 ??? Diet ??? you may resume your normal diet. ??? Activity ??? you may resume your normal activities ??? Call if you have a fever over 100 degrees.[facility] 02-05-2024 Hospital Discharge instructions Patient Education 02/05/2024 11:13:21 Kegel Exercises Kegel Exercises Kegel exercises can [...] provider. Document Revised: 07/13/2021 Document Reviewed: 07/13/2021 [employer] Patient Education 2023 [employer]. Follow Up Care 02/20/2023 09:54:54 With:Dewayne VILLEGAS, Asuncion [place], URL, [facility] Address: When: Unknown Comments:Schedule Cysto and Pelvic Exam [facility] 11-20-2024 NotePatient Education Obstetrics and Gynecology Kegel Exercises Kegel exercises can help strengthen [...] Your provider may suggest Kegel exercises to: ??? Improve bladder and bowel control. ??? Improve sexual response. ??? Improve weak pelvic floor muscles after surgery to remove the uterus (hysterectomy) or after , in females. ??? Improve weak pelvic floor muscles after prostate [...] provider. Exercises How to do Kegel exercises: 1. Squeeze your pelvic floor muscles tight. You should feel a tight lift in your rectal area. If you are a female, you should also feel a tightness in your vaginal area. Keep your stomach, buttocks, and legs relaxed. 2. Hold the muscles tight for up to 10 seconds. 3. Breathe normally. 4. Relax your muscles for up to 10 seconds. 5. Repeat as told by your health care provider. Repeat this exercise daily as told by your health care provider. Continue to do this exercise for at least 4?6 weeks, or for as long as told by your health care provider. You may be referred to a physical therapist who can help you learn more about how to do Kegel exercises. Depending on your condition, your health care provider may recommend: ??? Varying how long you squeeze your muscles. ??? Doing several sets of exercises every day. ??? Doing exercises for several weeks. ??? Making Kegel exercises a part of your regular exercise routine. This information is not intended to replace advice given to you by your health care provider. Make sure you discuss any questions you have with your health care provider. Document Revised: 07/13/2021 Document Reviewed: 07/13/2021 [employer] Patient Education ? 2023 [employer].[facility] 01-29-2024 History of Present illness Narrative* Marsha Lal, - 01/29/2024 8:15 AM EST Images from the original note were not included. Assessment/Plan Diagnoses and all orders for this visit: Keratoconjunctivitis sicca of both eyes not specified as Sjogren's - Keratoconjunctivitis sicca OU -- Environmental changes to minimize dryness and exposure and the use of artificial tears were recommended. Once again discussed significance of dry eyes. At one time was on Restasis but no longer. Consider restarting after greater effort with OTC tears and possibly night time jose. Blepharitis of upper and lower eyelids of both eyes, unspecified type - Blepharitis, posterior type OU - The patient exhibits inspissated meibomian glands. Warm compresses, lid massage and lid scrubs were recommended. Bilateral posterior capsular opacification - PCO OU: (Posterior Capsule Opacification) Can be observed without intervention if PCO is not visually significant. Nd:YAG laser capsulotomy may be considered if impairment of vision rises to a level that dose not meet the patient's functional needs or interferes with activities of daily living. Risks, benefits and alternatives to the procedure will be reviewed. If the patient has undergone Nd:YAG laser capsulotomy, they are to notify their screwdown operator promptly if they have a significant change in symptoms, such as flashes of light (photopsia), an increase in floaters, loss of visual field or decrease in visual acuity. documented in this encounterMid Missouri Mental Health [id number] Evaluation note* Diagnosis Onset Date Resolution Status Admit Date Asthma acute February 05, 2024 8:24am Hypertension acute January 8:24am Hypothyroidism acute January 172023 8:24am Iron deficiency anemia acute No vember 2023 8:24am Medicare annual wellness vis it, subsequent acute February 04, 2 024 8:24am Osteoporosis acute January 8:24am Screening mammogram for [facility] cancer acute February 04, 2 024 8:24am Small bowel stricture acute Jan 8:24am [facility] Work Phone: 1(781) 140-526110-14-2024 History of Present illness Narrative* Charito Vasquez MD - 12/30/2023 9:20 AM EDT Munira Chester returns to the office today [...] Xhance lavage and try and send to [facility]. Follow-up in 4 months. Discuss simons again at that time to see if [facility] pharmacy has been less expensive for her Xhance. documented in this encounterMid Missouri Mental Health [id number] Instructions* Patient Instructions* Kasey Fallon MD - 12/27/2023 9:17 PM [...] with insulin, diabetic pills, or other injectable medicationsdo not take your REGULAR dose after midnight on the day of your procedure. If you are taking any other types of insulin such as Lantus, Humalog, NPH (long- acting insulin), or70/30 insulin, take half your normal dose the [...] medications (including aspirin, antibiotics, water pills / diureticslike Lasix or Metolozone, blood pressure meds, etc.) [...] no-pulp) Popsicles or hard candy BOWEL PREPARATION (GOLYTELY/NULYTELY/TRILYTE/COLYTE) Split Dosing Bowel Prep: This means drinking your bowel prep in two doses. Split dosing helps cleanyour colon better and makes it less likely [...] that slow bowel emptying (narcotics, gabapentin, anticholinergic medicationsetc.) A: Contact your physician as you will [...] am on dialysis? A: Please consult your lead assembler prior to scheduling to get instructions pertinent to you. In general, dialysis patients take the [place] bowel prep and have the procedure same [...] rest of the day. documented in [facility]Paul[facility]10-[facility] History of Present illness Narrative* Kasey Fallon MD - 12/27/2023 4:30 PM EDT SMALL BOWEL DISEASES AND NUTRITION NEW ENCOUNTER Date of direct communication: 12/27/23 Assessment IMPRESSION: Munira Chester is a 73 year old female with longstanding NSAID dependence complicated by upper GI ulcers and iron deficiency anemia. 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 , REFERRING PROVIDER: Moustapha Ace [address] [facility] [id number] REASON FOR REFERRAL: Small bowel stricture HISTORY: [...] Inhale 1 Inhalation as instructed once daily. Lcfezgeiyp-Ckmnumlmjrxku-Trxm (FIORICET) 50-300-40 mg cap Take by mouth. EPINEPHrine (EPIPEN) 0.3 mg/0.3 mL auto-injector Inject 0.3 mg intramuscularly as needed. fluticasone (FLONASE) 50 mcg/actuation nasal spray Use 1 Bombay in each nostril once daily. atorvastatin (LIPITOR) [...] dilated small bowel. No visualized stricture. RESULT: Therapeutic Activities Services Worker radiograph shows no dilated bowel loops. Right [...] the proximal-mid ileum, benign stricture in the mid- proximal ileum that the capsule could not pass. [...] of records, and documentation. documented in this encounterPaulding [facility]10-11-2024 NoteHNO ID: [id number] Author: KASEY FALLON MD Service: ? Author [...] balloon enteroscopy Kasey Fallon MD 12/27/2023 [employer] [facility] , REFERRING PROVIDER: Moustapha Ace [address] [facility] [id number] REASON FOR REFERRAL: Small bowel stricture HISTORY: [...] Inhale 1 Inhalation as instructed once daily. Uxkssxjiey-Pzgmzcmyfjjur-Nnyu (FIORICET) 50-300-40 mg cap Take by mouth. EPINEPHrine (EPIPEN) 0.3 mg/0.3 mL auto-injector Inject 0.3 mg intramuscularly as needed. fluticasone (FLONASE) 50 mcg/actuation nasal spray Use 1 Bombay in each nostril once daily. atorvastatin (LIPITOR) [...] History: S/p laparoscopic cholecystectomy (more content not included)...[facility]10-09-2024 Telephone encounter Note* Telephone Encounter - Hollis Mckeon RN - 12/25/2023 2:56 PM EDT Pt called and left VM, said had small bowel xray done, saw results and now questioning if still needs appt with Dr. Fallon, scheduled for 12/26, asking for return call to clarify if still needs to come or can cx. Call cell phone at [phone]. Hollis Mckeon RN [facility]10-09-2024 Miscellaneous Notes* Telephone Encounter - Hollis Mckeon RN - 12/25/2023 2:56 PM EDT Pt called and left VM, said had small bowel xray done, saw results and now questioning if still needs appt with Dr. Fallon, scheduled for 12/26, asking for return call to clarify if still needs to come or can cx. Call cell phone at [phone]. Hollis Mckeon, RN documented [facility]10[facility] History of Present illness Narrative* Mary Jimenez RT(R) - 12/24/2023 9:40 AM EDT Radiology Service Progress Note PATIENT NAME: Munira Chester DATE OF SERVICE: December 24, 2023 TIME: 2:19 PM PATIENT IDENTITY VERIFICATION COMPLETED USING TWO (2) IDENTIFIERS: Name and Date of confirmedby patient verbally. FALL SCREENING: Has the patient had 2 falls in the last year or 1 fall with injury or currently using an Ambulatory Assistive Device (Walker, Cane, Wheelchair, Crutches, etc.)? No PATIENT GENDER DATA: Female. status: : No status: N/A PATIENT RELEVANT IMPLANT DATA REVIEWED: Yes PATIENT PRESENTS WITH AN IMPLANTABLE OR ATTACHED PHLEBOTOMIST: No RADIOLOGY DEPARTMENT: General X-ray: Exam(s) Completed: GI/ Procedure(s): Small bowel series withbarium contrast PERIPHERAL IV DATA: Not applicable SIGNED BY: RT Adair(Peterson) December 24, 2023 2:19 PM documented in this [facility]Paul[facility]10-[facility]24 NoteHNO ID: [id number] Author: MARY JIMENEZ RT(R) Service: Radiology Author [...] PATIENT PRESENTS WITH AN IMPLANTABLE OR ATTACHED PHLEBOTOMIST: No RADIOLOGY DEPARTMENT: General X-ray: Exam(s) Completed: GI/ Procedure(s): Small bowel series with barium contrast PERIPHERAL IV DATA: Not applicable SIGNED BY: Mary Jimenez, RT(R) December 24, 2023 2:19 [facility]09-18-2024 Telephone encounter Note* Telephone Encounter - Hollis Mckeon RN - 12/04/2023 11:11 AM EDT Pt left VM and would like to reschedule GI test to earlier in week due to would like to come with her and drive and then maybe MD would also have test results before appt. Hollis Mckeon RN [facility]09-18-2024 Miscellaneous Notes* Telephone Encounter - Hollis Mckeon RN - 12/04/2023 11:11 AM EDT Pt left VM and would like to reschedule GI test to earlier in week due to would like to come with her and drive and then maybe MD would also have test results before appt. Hollis Mckeon RN documented in this encounterPaul[facility]08-15-[facility]24 Telephone encounter Note * Telephone Encounter - Rehana Hoang - 10/31/2023 9:30 AM EDT Patient called to see if you have received a fax from a Dr. Nettles's office for a pill cam? [facility]08-15-2024 Miscellaneous Notes* Telephone Encounter - Rehana Hoang - 10/31/2023 9:30 AM EDT Patient called to see if you have received a fax from a Dr. Nettles's office for a pill cam? documented in this encounterPaulding [facility]07-31-2024 Telephone encounter Note * Telephone Encounter - Hollis Mckeon RN - 10/16/2023 1:49 PM EDT Faxed referral received on 10/15/23 for pt sent from Dr. Ace from [facility] to attention Dr. Fallon, for pt for GI for consideration for double balloon enteroscopy. What records were received were scanned to chart. Hollis Mckeon RN [facility]07-31-2024 Miscellaneous Notes* Telephone Encounter - Hollis Mckeon RN - 10/16/2023 1:49 PM EDT Faxed referral received on 10/15/23 for pt sent from Dr. Ace from [facility] to attention Dr. Fallon, for pt for GI for consideration for double balloon enteroscopy. What records were received were scanned to chart. Hollis Mckeon RN documented in this encounterPaulding [facility]06-29-2024 History of Present illness Narrative* Jhonny Maher MD - 09/14/2023 9:30 AM EDT Chief Complaint: Cough History Of Present Illness: Munira Chester presents as a new patient to me. She developed a cough in December 2022. Prior to this she was doing well. She was evaluated by a number of providers and has been given multiple courses of oral medical therapy including doxycycline and prednisone. She was transitioned from Breo to Trelegy without significant benefit. When she was assessed by pulmonology, it was not felt that her asthma was driving her worsening of cough. She has been told by different provider that she was wheezing from her neck and we discussed what I think was meant by this today. No matter what she did the cough persisted. Ultimately, she was given a codeine- based coughmedication that would allow her to sleep. More recently, over the last few weeks, she was prescribed Xhance and feels that this is provided benefit but she continues to cough on some level. She had a very bad sinus infection in early August 2023. She was evaluated through an urgent care andgiven doxycycline. She had new onset production of significant mucoid debris that drained from the back of her nose into her mouth and this was discolored. This happened a few times but since this resolved she has done generally well. Main Symptoms: Patient has anterior nasal drainage. Once every 4 days since Dec 2022 Patient does not have posterior nasal drainage. Previously Patient does not have nasal airway obstruction. Patient has facial pain. Was bad during the infection in August 2023 but now ok Patient has facial pressure. Was bad during the infection in August 2023 but now ok Patient does not have decreased sense of smell. Associated Symptoms: Patient has headaches. Patient has throat clearing. 75%-80% better now Patient has coughing. 75%-80% better now Patient does not have dysphonia. Normal now but did have issues Patient does not have nasal bleeding. Medications currently on for sinonasal symptoms: Xhance 1 puff each side Qday (has been on for weeks), Zyrtec, Breo; rinses BID Medications tried in the past for sinonasal symptoms: Astepro (no benefit), Claritin Other Pertinent Medical Conditions: Patient has asthma. Follows with pulmonary (Had PFT's in April that was NL by her report) Patient does not have aspirin sensitivity. Patient has migraines. Patient has history of allergy testing. When: Apr 2023 (unable to directly review the results) Patient does not have history of IT. Kenalog shots shyla months for > 10 years age 11 -early 20's for atopic dermatitis Patient does not have history of sinus surgery. Patient does not have history of nasal fracture. Patient has heartburn. The patient does take therapy for heartburn. Pepcid, Protonix The patient has a GI evaluation. The patient has imaging of sinuses. When: 07/25/23. I personally reviewed the CT sinus today during the patient's clinic visit and there were scattered inflammatory changes throughout her sinuses. Findings: Maxillary Sinuses: Mild mucosal thickening. Ethmoid [...] identified. Orbital contents are within normal limits. IgE level April 22, 2023 was 439 Active Problems: There is no problem list on file for this patient. Past Medical History: She has no past medical history on file. Surgical History: She has no past surgical history on file. Family History: No family history on file. Social History: She reports that she has never smoked. She has never used smokeless tobacco. She reports that she does not drink alcohol and does not use drugs. Allergies: Bee venom protein (honey bee), Iodinated contrast media, Iodine, Wasp venom, Amoxicillin, Sulfacetamide rzn-jipysw-rxpq, Penicillin, and Sulfa (sulfonamide antibiotics) Current Meds: Current Outpatient Medications: amLODIPine (Norvasc) 5 mg tablet, Daily, Disp: , Rfl: betamethasone valerate (Valisone) 0.1 % ointment, , Disp: , Rfl: Breo Ellipta 200-25 mcg/dose inhaler, , Disp: , Rfl: cholecalciferol (Vitamin D-3) 50 mcg (2,000 unit) capsule, Take 1 capsule (50 mcg) by mouth once daily., Disp: , Rfl: codeine-guaifenesin (Robitussin-AC) 10-100 mg/5 mL syrup, Every 6 hours, Disp: , Rfl: estradiol (Estrace) 0.01 % (0.1 mg/gram) vaginal cream, See Instructions, 42.5 gm, Refill(s) 0, apply pea sized amount to urethra 2x/wk, [facility], 158, cm, 02/20/23 8:48:00 EST, Height/Length Dosing, 68.5, kg, 02/20/23 8:48:00 EST, Weight Dosing, Disp: , Rfl: famotidine (Pepcid) 20 mg tablet, Take by mouth., Disp: , Rfl: iFerex 150 150 mg iron capsule, TAKE 1 CAPSULE BY MOUTH EVERY OTHER DAY Oral for 30 Days, Disp: , Rfl: Macrobid 100 mg capsule, Take 1 capsule (100 mg) by mouth., Disp: , Rfl: montelukast (Singulair) 10 mg tablet, Daily, Disp: , Rfl: albuterol 90 mcg/actuation inhaler, Inhale 2 puffs., Disp: , Rfl: aspirin 81 mg EC tablet, once every 24 hours., Disp: , Rfl: atorvastatin (Lipitor) 10 mg tablet, 1 (one) time each day at the same time, Disp: , Rfl: jpbxnzmbdm-khbcticefunpt-fdgo (Fioricet) 50-300-40 mg capsule, Take by mouth., Disp: , Rfl: cetirizine (ZyrTEC) 10 mg tablet, take 1 tablet by mouth once daily if needed for allergies, Disp: , Rfl: EpiPen 2-Giovani 0.3 mg/0.3 mL injection syringe, as directed Injection, Disp: , Rfl: fluticasone propionate (Xhance) 93 mcg/actuation aerosol breath activated, Administer into affectednostril(s)., Disp: , Rfl: Fosamax 70 mg tablet, 1 tablet 30 minutes before the first food, beverage or medicine of the day with plain water Orally for 30 day(s), Disp: , Rfl: levothyroxine (Synthroid, Levoxyl) 100 mcg tablet, once every 24 hours., Disp: , Rfl: metroNIDAZOLE (Metrogel) 0.75 % (37.5mg/5 gram) vaginal gel, Insert 1 Applicatorful into the vagina., Disp: , Rfl: pantoprazole (ProtoNix) 40 mg EC tablet, Take 1 tablet (40 mg) by mouth., Disp: , Rfl: Vitals: Visit Vitals Ht 1.6 m (5' 3 ) Wt 73.5 kg (162 lb 1.6 oz) BMI 28.71 kg/m Smoking Status Never BSA 1.81 m Physical Exam: CONSTITUTIONAL: Vitals reviewed in nursing chart, well developed, well nourished. RESPIRATION: Breathing comfortably, no stridor. CV: No clubbing/cyanosis/edema in hands. EYES: EOM Intact, sclera normal. NEURO: Alert and oriented times 3, Cranial nerves 2-12 intact and symmetric bilaterally. HEAD AND FACE: Skin with no masses or lesions, sinuses nontender to palpation. SALIVARY GLANDS: Parotid and submandibular glands normal bilaterally. EARS: Normal external ears, external auditory canals, and TMs to otoscopy, normal hearing to whispered voice. NOSE: External nose midline, anterior rhinoscopy is normal with limited visualization to the anterior aspect of the interior turbinates (see nasal endoscopy). ORAL CAVITY/OROPHARYNX/LIPS: Normal mucous membranes, normal floor of mouth/tongue/OP, no masses orlesions are noted. NECK/LYMPH: No LAD, no thyroid masses. SINONASAL ENDOSCOPY (CPT 67752): To better evaluate the patient's symptoms, sinonasal endoscopy is indicated. After discussion of risks and benefits, and topical decongestion and anesthesia,an endoscope was used to perform nasal endoscopy on each side. A time out identifying the patient, the procedure, the location of the procedure and any concerns was performed prior to beginning the procedure. Findings: Examination of the right nasal cavity revealed some mucus draining from the right middle meatus. Sphenoethmoid recess was normal. Examination of the left nasal cavity revealed a very small amount of mucus draining from the middle meatus. Sphenoethmoid recess was normal. Results/Data: I personally reviewed her CT sinus as listed above. I reviewed an office note from Dr. Vasquez August 14, 2023. This note outlined her significant medical therapy including multiple courses of prednisone as well as doxycycline. She was prescribed Xhance. I reviewed another note from July 03, 2023. She was on Breo at the time and they had discussed the possibility of a biologic if her symptoms continue. I reviewed another note from May 29, 2023 atwhich time she was given doxycycline and asked to begin dextromethorphan qbqo-ydr-mlzdbrg. I personally reviewed the last note from Dr. Alberts July 31, 2023. She underwent a CT sinus before this evaluation and he did mention that her cough had been improving at that time. She was asked to see me given that she is already been evaluated by pulmonology, GI, allergy for her cough. I revieweda note from July 02, 2023. During that evaluation her larynx was visualized and there were no concerning findings. At that time, they discussed some wheezing in her neck and coughing that she was describing. I reviewed another note from May 16, 2023. At that time it was mentioned that she hadan elevated eosinophil count. I reviewed a note from April 22, 2023 during which they discussed that she had a wheeze in her neck and that it could be an extrathoracic cause. A CT neck was recommended and they discussed getting spirometry. The CT neck was not available for review but according tothe note from April this was normal outside of sinus disease. According to the same note, shewas evaluated through pulmonary without specific findings. I reviewed the report of a modified barium swallow from February 23, 2021. IMPRESSION: 1. Normal modified barium swallowing study. 2. Given the normal modified barium swallowing study the patient's symptoms may be secondary to gastroesophageal reflux or abnormal/delayed esophageal peristalsis. Consider a fluoroscopic esophagram study for further evaluation if symptoms persist. Provider Impressions: 1. Chronic sinusitis 2. Throat clearing, coughing 3. Rhinorrhea 4. Headaches, migraines 5. Reflux on proton pump inhibitor and H2 beau 6. Eosinophilia Discussion: Munira Chester and I discussed her exam and symptoms together today. We had a very comprehensive discussion about whether or not the findings on her imaging were the most significant route driver of her ongoing throat clearing and coughing. At this point in time, I would hold off on consideration of endonasal surgery and we discussed a number of reasons for this today. I recommend that she continue Xhance. She seems to be having improvement on this and I would not want to alter this therapy currently. She has used Astepro without significant benefit. If we were going to make alterations to her intranasal medical therapy I would recommend a rinse based steroid such as mometasone 2 mg. We discussed extrathoracic causes of noisy breathing. We also discussed some events that she would have with coughing where she would feel like she could not breathe and turned blue. I question whether or not she has paradoxical vocal fold motion as this would explain some of the symptoms. We discussed some basics of this entity and I strongly recommended evaluation with one of my voice partners to be evaluated. If this is not specifically seen on exam, I am hopeful that speech-language pathology can discuss options with her in regard to medical management. She has been evaluated by pulmonary and follows with GI. If she meets with my voice partner and hasongoing symptoms I think it would be completely reasonable to consider surgical options. We discussed risks of sinus surgery today. Our focus was on the potential for persistence of symptoms if her cough is not being driven by a primary sinonasal issue particularly the fact that she denies recent postnasal drainage yet continues to cough. The sinus surgery itself was discussed at length. The risks, benefits, and alternatives were explained in detail which include but is not limited to: persistence of symptoms, pain, bleeding, smell loss or alteration, infection, need for nasal packing, double vision, vision loss, CSF leak requiring other procedures to repair, numbness of teeth/and or face, need for revision surgery, and unexpectedrisks. She had discussed with Dr. Vasquez the possibility of a biologic and this is also something that she should consider seriously as this would provide benefit both in regard to asthma as well as chronic sinusitis (particularly in those with nasal polyposis). I recommended follow-up with me as needed moving forward. All questions were answered. Between ywak-nv-sdcl contact, review of the medical record, and documentation I spent 65 minutes onthis evaluation during the day of service. Signature: Jhonny Maher MD documented in this encounterCincinnati [facility] Work Phone: [phone]) 137-211306-20-2024 Mason from [facility] called stating that a referral was faxed ton August 25 for patient for a double balloon enteroscopy. Had spoken with Dayan previously as we don't do the double balloons but referring physician is fine with just a single balloon. Patient is wanting to go to [facility] where a double balloon can be done so disregard this referral.[facility]06-12-2024 NoteCalled and spoke with Dayan at [facility] regarding a referral that was sent on August 25 for this patient. In reading the notes she is being referred for a double balloon enteroscopy and our physicians only do single balloon's. She will check with Dr. Ace to see how he would like to proceed and let me know.[facility]03-07-2024 Note [id number] [facility] 05-22-2023 Hospital Discharge instructions Patient Education 05/22/2023 08:58:47 Colonoscopy, Care After Surgery Layla (CUSTOM) Colonoscopy Care After Surgery Please read the instructions outlined below and refer to this sheet in the next few weeks. These discharge instructions provide you with general information on caring for yourself after you leave thespital. Your doctor may also give you specific [...] Heavy or fried foods are harder to digestand may make you feel nauseated (sick to [...] colon so that bowel contents can move througheasily. You should eat 20 to 35 grams [...] corn, and seeds. This has not been foundto be true. If you find that certain foods create cramping or bloating, avoid that food. Foods high in fiber include: Fresh fruits, fresh vegetables, legumes (beans), whole wheat bread, bran muffins or cereal, and nuts. See the table below for examples of high fiber foods. Remember, your goal is 20- 35 grams per day. Amount of fiber in different foods Food Serving Grams of fiber Fruits Apple (with skin) 1 medium apple 4.4 Banana 1 medium banana 3.1 Oranges 1 orange 3.1 Prunes 1 cup, pitted 12.4 Juices Apple, unsweetened, w/added ascorbic acid 1 cup 0.5 Grapefruit, white, canned, sweetened 1 cup 0.2 Grape, unsweetened, w/added ascorbic acid 1 cup 0.5 Mead 1 cup 0.7 Vegetables Cooked Green beans 1 cup 4.0 Carrots 1/2 cup sliced 2.3 Peas 1 cup 8.8 Potato (baked, with skin) 1 medium potato 3.8 Raw [place] (with peel) 1 cucumber 1.5 Lettuce 1 [...] 8.7 Peanuts 1/2 cup 7.9 Chart from [facility] 2013. SEEK IMMEDIATE MEDICAL CARE IF: You [...] of Agriculture (USDA) National Nutrient Database at: http://www.nal.usda.gov/fnic/foodcomp/search/ Created using data from the USDA National Nutrient Database for Standard Reference. Available at http://www.nal.usda.gov/fnic/foodcomp/search/. Information adapted from: ExitCare Patient Information 2009 [employer]. [employer] 2012 http://www.wedgies/contents/iiqlswddajsc-wjxbhbt-meepln-the-basics 05/22/2023 08:58:41 Hemorrhoids, Zfgp-qs-Fvzy Hemorrhoids Hemorrhoids are swollen veins that may [...] 3 4 times a day. You may dothis in a bathtub or using a portable sitz bath that fits over the toilet. If told, put ice on the painful area. It may be helpful to use ice between your warm baths. ?Put ice in a plastic bag. ?Place a towel between your skin and the bag. ?Leave the ice on for 20 minutes, 2 3 times a day. General instructions Take twaf-jrf-ojlwxof and prescription medicines only as told by [...] provider. Document Revised: 09/13/2021 Document Reviewed: 09/13/2021 [employer] Patient Education 2022 [employer] 05/22/2023 08:58:37 Endoscopy, Care After Procedure [facility]) Endoscopy Care After Procedure Please read the instructions outlined below and refer to this sheet in the next few weeks. These discharge instructions provide you with general information on caring [facility] Your doctor may also give you [...] blood. Document Released: 10/16/2004 Document Re-Released: 08/26/2006 [facility] Patient Information 2010 [employer]. 05/22/2023 08:58:29 Hiatal Hernia Hiatal Hernia A [...] may be born with a weakness in thehiatus, or a weakness can develop over time. What increases the risk? This condition is more likely to develop in: Older people. Age is a major risk factor for a hiatal hernia, especially if you are over the age of50. women. People who are overweight. People who [...] reduce GERD symptoms. Medicines. These may include: ?Cgak-fvb-obtaewd antacids. ?Medicines that make your stomach empty [...] you need help quitting, ask your health careprovider. Try to achieve and maintain a healthy [...] may include: ?Fatty foods, like fried foods. ?[place] fruits, like oranges or lemon. ?Other foods [...] Do not drink alcohol. General instructions Take vyva-lcm-kqdbvjz and prescription medicines only as told by [...] provider. Document Revised: 05/01/2022 Document Reviewed: 05/01/2022 [employer] Patient Education 2022 [employer]. Follow Up Care 05/14/2023 13:37:06 With:Tho VILLEGAS, ANGLE Villanueva, [facility] Address: When: Unknown Comments:Call for any problems. The office will reach out in about one week from procedure date. [facility]02-05-2024 Evaluation note* Encounter Date Diagnosis Assessment Notes Treatment Notes Treatment Clinical Notes Apr, Moderate persistent asthma without complication (ICD-10 - J45.40) [facility] Other 02-02-2024 Evaluation note* Encounter Date Diagnosis Assessment Notes Treatment Notes Treatment Clinical Notes Apr, Moderate persistent asthma with acute exacerbation (ICD-10 - J45.41) [facility] Other 01-30-2024 Evaluation note* Encounter Date Diagnosis [...] Claritin, Singulair and Flonase Scheduled to see home economist. Mar, Gastroesophageal reflux disease with esophagitis without hemorrhage (ICD-10 - K21.00) Avoid lying flat after eating. Avoid eating 2 hours prior to bedtime. Smaller, frequent meals may be better tolerated.Weight loss if overweight.PPI with any heartburn.Monitor for dysphagia. [facility] Other 01-18-2024 Evaluation note* Encounter Date Diagnosis Assessment Notes Treatment Notes Treatment Clinical Notes Mar, Iron deficiency anemia due to chronic blood loss (ICD-10 - D50.0) [facility] Other 12-22-2023 Evaluation note* Encounter Date Diagnosis Assessment Notes Treatment Notes Treatment Clinical Notes Feb, Iron deficiency anemia due to chronic blood loss (ICD-10 - D50.0) [facility] Other 12-20-2023 Evaluation note* Encounter Date Diagnosis Assessment Notes Treatment Notes Treatment Clinical Notes Feb, Anemia (ICD-10 - D64.9) [facility] Other 12-11-2023 Evaluation note* Encounter Date Diagnosis Assessment Notes Treatment Notes Treatment Clinical Notes Feb, Moderate persistent asthma without complication (ICD-10 - J45.40) [facility] Other 12-06-2023 Hospital Discharge instructions Patient Education [...] relieve pelvic muscle tension or spasms. Take mrou-mwd-wskedra and prescription medicines only as told by [...] provider. Document Revised: 07/12/2021 Document Reviewed: 07/12/2021 [employer] Patient Education 2022 [employer]. 02/20/2023 09:44:59 Kegel Exercises Kegel Exercises Kegel [...] provider. Document Revised: 07/13/2021 Document Reviewed: 07/13/2021 [employer] Patient Education 2022 [employer] Follow Up Care 01/31/2022 08:50:25 With:Dewayne VILLEGAS, RANDAL Arizmendi, [facility] Address: [address] [place] [address]- [phone] When: Unknown Comments:3 yr [facility] Tariq 12-04-2023 Evaluation note* Encounter Date Diagnosis Assessment Notes Treatment Notes Treatment Clinical Notes Feb, Moderate persistent asthma with acute exacerbation (ICD-10 - J45.41) Holding Breo for trial of Trelegy. Avoid dust, mold, fumes as much as possible. Steroid taper to break cycle of coughing Refer to Furnace Keeper and Brazer Assembler when stable Feb, Non-seasonal allergi c rhinitis due to other allergic trigger (ICD-10 - J30.89) Continue FLonase NS Add Astepro NS Continue Claritin and Singulair Feb, Gastroesophageal reflux disease with esophagitis without hemorrhage (ICD-10 - K21.00) Diet instructions: Smaller portions, avoid eating and laying flat, avoid eating or drinking prior to bedtime. Weight loss. Continue PPI [facility] Other 11-21-2023 Evaluation note* Encounter Date Diagnosis Assessment Notes Treatment Notes Treatment Clinical Notes Jan, Age-related osteopor osis without current pathological fracture (ICD-10 - M81.0) Jan, Hypercholesteremia (ICD-10 - E78.00) [facility] Other 11-14-2023 Evaluation note* Encounter Date Diagnosis Assessment Notes Treatment Notes Treatment Clinical Notes Jan, Menopause (ICD-10 - Z78.0) [facility] Other 11-10-2023 Evaluation note* Encounter Date Diagnosis Assessment Notes Treatment Notes Treatment Clinical Notes Jan, Hypercholesteremia (ICD-10 - E78.00) [facility] Other 11-10-2023 Evaluation note* Encounter Date Diagnosis [...] much improved. Offered PFT and referral to Brazer Assembler. Jan, Autoimmune thyroidit is (ICD-10 - E06.3) [...] LORENZO (generalized anxiety disorder) (ICD-10 - F41.1) [facility] Other 09-27-2023 Evaluation note* Encounter Date Diagnosis Assessment Notes Treatment Notes Treatment Clinical Notes Nov, Moderate persistent asthma with acute exacerbation (ICD-10 - J45.41) Reviewed medication - continue LABA/ICS and NIKO - continue Singulair, Claritin and Flonase Suggested short course of Steroids and antibiotics. Discussed use of LAMA in combination of what she is presently taking CXR if no improvement [facility] Other 08-23-2023 Evaluation note* Encounter Date Diagnosis Assessment Notes Treatment Notes Treatment Clinical Notes Oct, Mild persistent asthma, uncomplicated (ICD-10 - J45.30) [facility] Other 08-17-2023 Evaluation note* Encounter Date Diagnosis [...] understanding and is agreeable to treatment plan [facility] Other 04-12-2023 NotePROCEDURE: XR FOOT RT MIN [...] Electronically authenticated by: JEROME ESPINOSA Date: 2022-06-27 15:36[facility]03-02-2023 NotePROCEDURE: XR FOOT RT MIN [...] Electronically authenticated by: CAMPOS ERAZO Date: 2022-05-17 16:27[facility]02-09-2023 NotePROCEDURE: XR FOOT RT MIN [...] Electronically authenticated by: JEROME ESPINOSA Date: 2022-04-26 09:37[facility]01-19-2023 NotePROCEDURE: XR FOOT RT MIN 3 VIEWS [...] Electronically authenticated by: JEROME ESPINOSA Date: 2022-04-05 14:43[facility]01-19-2023 NotePROCEDURE: XR FOOT RT 2V [...] Electronically authenticated by: JEROME ESPINOSA Date: 2022-04-05 14:41[facility]01-11-2023 NotePROCEDURE: XR FOOT RT MIN [...] Electronically authenticated by: JEROME ESPINOSA Date: 2022-03-28 10:17[facility]12-26-2022 NotePROCEDURE: XR FOOT RT MIN [...] Electronically authenticated by: JEROME ESPINOSA Date: 2022-03-12 09:46[facility]12-19-2022 Evaluation note* Encounter Date Diagnosis Assessment Notes Treatment Notes Treatment Clinical Notes Feb, Acute pain of left shoulder (ICD-10 - M25.512) Feb, Tear of left supraspinatus tendon (ICD-10 - M75.102) A 1/1cc marcaine / kenalog cortisone injection was performed into the subacromial space under sterile technique. Patient tolerated the injection well with no adverse reaction. [facility] Other 09-16-2022 Hospital Discharge instructions Patient Education [...] nerve stimulation). For women, using a medical affairs manager to prevent urine leaks. This is a [...] right after experiencing incontinence. General instructions Take wfhj-wge-ouwdjuy and prescription medicines only as told by [...] 04/11/2005 Document Revised: 03/14/2018 Document Reviewed: 06/13/2017 [employer] Patient Education 2020 [employer]. Follow Up Care 10/20/2021 08:23:44 With:Asuncion Buchanan MD, URL, URO Address: When: Unknown [facility] 2022 Evaluation note* Encounter Date [...] the injection well with no adverse reaction. [facility] Other Evaluation + Plan note Future Appointments Appointment Date:01/31/2022 08:00:00 AM Scheduled Provider:Asuncion Buchanan MD Location:[facility] Appointment Type:URO Office Visit [facility] Evaluation + Plan note Future Appointments Appointment Date:02/19/2024 08:00:00 AM Scheduled Provider:Asuncion Buchanan MD Location:[facility] Appointment Type:URO Office Visit [facility] evaluation + Plan note Future Appointments Appointment Date:05/22/2023 08:00:00 AM Scheduled Provider: Location:[facility] Surgical Services Appointment Type:Surgery FT Appointment Date:02/19/2024 08:00:00 AM Scheduled Provider:Asuncion Buchanan MD Location:[facility] Appointment Type:URO Office Visit [facility] Evaluation + Plan note Future Appointments Appointment Date:07/23/2023 08:00:00 AM Scheduled Provider: Location[facility] Appointment Type:CT Sinus/Orbits/Maxillofacial (FT) Appointment Date:02/19/2024 08:00:00 AM Scheduled Provider:Asuncion Buchanan MD Location:[facility] Appointment Type:URO Office Visit Future Scheduled Tests Radiology* XR Abdomen 1 View 07/04/23 * CT Maxillofacial w/o Contrast 07/23/23 [facility] Evaluation + Plan note Future Appointments Appointment Date:07/23/2023 08:00:00 AM Scheduled Provider: [facility]:CT Sinus/Orbits/Maxillofacial (FT) Appointment Date:02/19/2024 08:00:00 AM Scheduled Provider:Asuncion Buchanan MD Location:[facility] Appointment Type:URO Office Visit Future Scheduled Tests Radiology* CT [facility]acial [facility] Appointment Date:07/23/2023 08:00:00 AM Scheduled Provider: Location[facility] Appointment Type:CT Sinus/Orbits/Maxillofacial (FT) Appointment Date:08/15/2023 08:15:00 AM Scheduled Provider:Del Nettles MD Location:[facility] Appointment Type:[facility] Follow Up Appointment Date:02/19/2024 08:00:00 AM Scheduled Provider:Asuncion Buchanan MD Location:[facility] Appointment Type:URO Office Visit Future Scheduled Tests Radiology* CT Maxillofacial w/o Contrast 07/23/23 [facility] Evaluation + Plan note Future Appointments Appointment Date:08/15/2023 08:15:00 AM Scheduled Provider:Del Nettles MD Location:[facility] Appointment Type:[facility] Follow Up Appointment Date:02/19/2024 08:00:00 AM Scheduled Provider:Asuncion Buchanan MD Location:[facility] App[facility]ments Appointment Date:02/05/2024 10:45:00 AM Scheduled Provider:Asuncion Buchanan MD Location:[facility] Appointment Type:URO Office Visit [facility] evaluation + Plan note Future Appointments Appointment Date:02/05/2024 10:45:00 AM Scheduled Provider:Asuncion Buchanan MD Location:[facility] Appointment Type:URO Office Visit Diagnostic Tests Pending * Urine Culture 12/27/23 [facility] Evaluation + Plan note Future Appointments Appointment Date:02/17/2024 09:00:00 AM Scheduled Provider: Location:[facility] Urology Surgical Services Appointment Type:Urology CALL PAT FT Appointment Date:02/24/2024 09:30:00 AM Scheduled Provider: Location:[facility] Surgical Services Appointment Type:Urology FT [facility] evaluation + Plan note Future Appointments Appointment Date:04/07/2024 09:30:00 AM Scheduled Provider: Location:[facility] Surgical Services Appointment Type:Surgery FT Appointment Date:04/22/2024 10:45:00 AM Scheduled Provider:Asuncion Buchanan MD Location:[facility] Appointment Type:URO Office Visit Diagnostic Tests Pending * Urine Culture 03/24/24 [facility] Evaluation + Plan note Future Appointments Appointment Date:04/22/2024 10:45:00 AM Scheduled Provider:Asuncion Buchanan MD Location:[facility] Appointment Type:URO Office Visit [facility] evaluation + Plan note Future Appointments Appointment Date:05/20/2024 07:30:00 AM Scheduled Provider: Location:[facility] Appointment Type:Surgical PAT FT Appointment Date:06/02/2024 09:30:00 AM Scheduled Provider: Location:[facility] Surgical Services Appointment Type:Surgery FT [facility] evaluation noteNo InformationN[employer] Other Evaluation noteNo assessment information [facility] Work Phone: Evaluation note* Diagnosis Other partial intestinal obstruction (HCC)- Primary [facility] Diagnosis Other partial intestinal obstruction (HCC) [facility] Diagnosis Iron deficiency anemia due to chronic blood loss- Primary Iron deficiency anemia secondary to blood loss (chronic) Abnormal finding on GI tract imaging Nonspecific (abnormal) findings on radiological and other examination of gastrointestinal tract [facility] Chronic maxillary sinusitis- Primary Chronic pansinusitis Other chronic sinusitis documented in this encounter [facility] Healthcare[facility]* Diagnosis Keratoconjunctivitis sicca of both eyes not specified as Sjogren's- Primary Blepharitis of upper and lower eyelids of both eyes, unspecified type Bilateral posterior capsular opacification Unspecified after-cataract documented in this encounter [facility] HealthcareEvaluation note* Diagnosis Chronic maxillary sinusitis- Primary Chronic ethmoiditis Chronic ethmoidal sinusitis Chronic cough Cough Asthma, unspecified asthma severity, unspecified whether complicated, unspecified whether persistent ([facility]) documented in this encounter [facility] Work Phone: Evaluation note* Diagnosis Encounter for gynecological examination without abnormal finding Screening for malignant neoplasm of cervix Screening for malignant neoplasm of the cervix Encounter for screening mammogram for breast cancer Lichen sclerosus et atrophicus Circumscribed scleroderma Screening for osteoporosis Special screening for osteoporosis Postmenopausal status, age-related documented in this encounter [facility] HealthcareEvaluation note* Diagnosis Chronic maxillary sinusitis- Primary documented in this encounter [facility] Narrative - Reported* Type Description [...] above Hospitalization History blood transfusion from b [employer] Other [employer] general Narrative - Reported* Type Description Date [...] above Hospitalization History blood transfusion from b [employer] Other [employer] general Narrative - Reported* Type Description Date [...] above Hospitalization History blood transfusion from b [employer] Other [place] general Narrative - Reported* Type Description Date [...] above Hospitalization History blood transfusion from b [employer] Other History general Narrative - Reported* Type [...] above Hospitalization History blood transfusion from b [employer] Other Hospital course Narrative No data available for this section [facility] [email or web address] Hospital Discharge instructions No data available for this section [facility] Progress note No data available for this section [facility] [email or web address] Reason for referral (narrative)* Reason *FU 04/23 Referral for iron deficiency anemia. Diagnosis 1 Iron deficiency anem ia secondary to inadequate dietary iron intake (D50.8) Referral Organization [facility] kenny Referring Provider First Name Andrea Referring Provider Last Name Ch[place] Referring Provider Specialty Internal Me dicine Referred Organization [facility] Referred Provider CHRISSY HECTOR Referred Address [address] [place], [place],[address] Referred Provider Specialty Hematology Referral Priority Routine [...] faxed Clinical Notes Include labs results p: [id number] f: [id number] Reason Referral for pe rsistent cough and wheezing Diagnosis 1 Moderate persistent asthma with acute exacerbation (J45.41) Referral Organization [facility] Chico cox Referring Provider First Name Andrea Referring Provider Last Name [place] Referring Provider Specialty Internal Me dicine Referred Organization [facility] Referred Provider Edouard Espinosa Referred Address [address], [place],[address] Referred Provider Specialty Pulmonary Di [facility] Referral Priority Routine General Notes Patient w/ allergic rhinitis and asthma w/ deterioration of her symptoms over the past year. Her medications have been maximized and alternative etiology for cough and wheezing addressed. She has been referred to an Furnace Keeper for evaluation and scheduled for a PFT. [...] inadequate dietary iron intake (D50.8) Referral Organization [facility] Chico cox Referring Provider First Name Andrea Referring Provider Last Name [place] Referring Provider Specialty Internal Me dicine Referred Organization [facility] Referred Address [address],[place], [place],[address] Referred Provider Specialty Gastroentero logy Referral Priority [...] notes locked, referral faxed Clinical Notes f: [id number] [facility] Other Reason for referral (narrative)* Reason *FU 04/23 Referral for iron deficiency anemia. Diagnosis 1 Iron deficiency anem ia secondary to inadequate dietary iron intake (D50.8) Referral Organization [facility] [employer] kenny Referring Provider First Name Andrea Referring Provider Last Name Novi Referring Provider Specialty Internal [facility] Referred Organization [facility] Referred Provider CHRISSY HECTOR Referred Address [address] [place], [place],[address] Referred Provider Specialty Hematology Referral Priority Routine [...] faxed Clinical Notes Include labs results p: [id number] f: [id number] Reason Referral for pe rsistent cough and wheezing Diagnosis 1 Moderate persistent asthma with acute exacerbation (J45.41) Referral Organization [facility] [employer] kenny Referring Provider First Name Andrea Referring Provider Last Name [place] Referring Provider Specialty Internal Pr dicine Referred Organization [facility] Referred Provider Edouard Espinosa Referred Address [address] [place], [place],[address] Referred Provider Specialty Pulmonary Di seases Referral Priority Routine General Notes Patient w/ allergic rhinitis and asthma w/ deterioration of her symptoms over the past year. Her medications have been maximized and alternative etiology for cough and wheezing addressed. She has been referred to an Furnace Keeper for evaluation and scheduled for a PFT. [...] inadequate dietary iron intake (D50.8) Referral Organization [facility] kenny Referring Provider First Name Andrea Referring Provider Last Name [place] Referring Provider Specialty Internal Me dicine Referred Organization [facility] Referred Address [address] [address],[place], [place],[address] Referred Provider Specialty Gastroentero logy Referral Priority [...] to Hematology for IV iron and evaluation. [facility] Other Reason for referral (narrative)* Diagnostic Procedure Only (Routine) - Closed Specialty Diagnoses / Procedures Referred By Chinmay stark Referred To Contact XR IMAGING Diagnoses Other partial intestinal obstruction (HCC) Procedures XR SMALL BOWEL SERIES RADIOLOGIC EXAM SMALL INT SINGLE CONTRAST STUDY Kasey Fallon MD [facility] [address] [place], [place] [address] Xr Imaging [facility] Referral ID Status Reason Start Date Expiration Date V isits Requested Visits Authorized [id number] Closed Auto-Generate d Referral 11/22/2023 12/21/2024 1 1 [facility] for referral (narrative)* Outpatient Procedure (Routine) - New Request Specialty Diagnoses / Procedures Referred By Chinmay stark Referred To Contact [facility] Diagnoses Iron deficiency anemia due to chronic blood loss Abnormal finding on GI tract imaging Procedures ENTEROSCOPY ENTEROSC >2ND PRTN W/ILEUM W/BX SINGLE/MULTIPLE UNLISTED PROCEDURE SMALL INTESTINE Kasey Fallon MD [facility] [address] [place], [place] [address] [facility] [address] [place] [address] Referral ID Status Reason Start Date Expiration Date Visits Requested Visits Authorized [id number] New Request Auto-Generat ed Referral 12/26/2024 1 1 [facility] Summary Purpose Family History No Family History [...] Unknown Not Specified Diabetes mellitus Unknown Unknown Relationship Condition Age at Onset Recorded Date/T margaret mother Malignant neoplasm of lung Unknown Malignant neoplasm of pancreas Unknown Diabetes mellitus Unknown father Pneumonia Unknown Chronic headache disorder Unknown sister Malignant neoplasm of breast Unknown brother Acute poliomyelitis Unknown brother Myocardial infarction Unknown brother Malignant neoplasm of colon Unknown father Unknown Malignant neoplasm Unknown mother Diabetes mellitus Unknown Unknown Advance Directives No Advanced Directives Records Found Advance Directive Response Recorded Date/ Time Advance Directives No September 08 8:51am Advance Directive Response Recorded Date/ Time Advance Directives No September 08 7:51am Chief Complaint and Reason for Visit Chief Complaint M25.512 Chief Complaint Check Up Amb Documentation Amb Documentation Cough Chief Complaint Amb Documentation Amb Documentation Cough congestion, cough Chief Complaint Admit Date CC Adult Risk Stratification January 282023 1:25pm Wellness February 05, 2024 8:24am Reason for Visit Admit Date Asthma February 05, 2024 8:24am Hypertension February 05, 2024 8:24am Hypothyroidism February 05, 2024 8:24am Iron deficiency anemia February 04 8:24am Medicare annual wellness visit, subseque nt February 05, 2024 8:24am Osteoporosis February 05, 2024 8:24am Screening mammogram for breast cancer No [id number] 8:24am Small bowel stricture February 04 8:24am Reason for Referral Specialty Diagnoses / Procedures Referred By Chinmay t Referred To Contact CT IMAGING Diagnoses Other partial intestinal obstruction (HCC) Procedures CT ENTEROGRAPHY W IVCON CT ABD & PELVIS W/CONTRAST Kasey Fallon MD [facility] [address] [place], [place] [address] Ct Imaging [facility]95 Referral ID Status Reason Start Date Expiration Date Visits Requested Visits Authorized [id number] New Request Auto-Generat ed Referral 10/31/2023 11/29/2024 [...] INT SINGLE CONTRAST STUDY Kasey Fallon MD [facility] [address] [place], [place] [address] Xr Imaging [place] [address] Referral ID Status Reason Start Date Expiration Date V isits Requested Visits Authorized [id number] Closed Auto-Generate d Referral 11/22/2023 12/21/2024 1 1 Reason Comments New Patient Double balloon Reason Comments Follow-up Pt here for follow u p apt with no new complaints surgeries or hospital stays Reason Comments Eye Exam Reason Comments New Patient Visit Reason Comments Gynecologic Exam Pt states has IBS. P t states she wears pad for bladder leakage,Pt states recently had bladder biopsy. Pt c/o vulvar irritation/redness. Denies vaginal bleeding/spotting. Reason Comments Follow-up Pt here for follow u p on sinusitis and cough. Pt states she's been doing well. No refills needed. Pt did have a bladder biopsy a few weeks ago which turned up negative. INFORMATION SOURCE (unrecogn ized section and content) DATE CREATED AUTHOR 10/11/2021 [facility] DATE CREATED AUTHOR AUTHOR'S ORGANIZ ATION 07/02/2022 [facility] DATE CREATED AUTHOR AUTHOR'S ORGANIZ ATION 09/07/2023 [facility] DATE CREATED AUTHOR AUTHOR'S ORGANIZ ATION 09/15/2023 [facility] DATE CREATED AUTHOR AUTHOR'S ORGANIZ ATION 10/12/2023 [facility] DATE CREATED AUTHOR AUTHOR'S ORGANIZ ATION 11/10/2023 [facility] DATE CREATED AUTHOR AUTHOR'S ORGANIZ ATION 01/01/2024 [facility] DATE CREATED AUTHOR AUTHOR'S ORGANIZ ATION 01/01/2024 [facility] DATE CREATED AUTHOR AUTHOR'S ORGANIZ ATION 02/08/2024 [facility] DATE CREATED AUTHOR AUTHOR'S ORGANIZ ATION 02/27/2024 [facility] DATE CREATED AUTHOR AUTHOR'S ORGANIZ ATION 03/30/2024 [facility] DATE CREATED AUTHOR AUTHOR'S ORGANIZ ATION 03/31/2024 [facility] DATE CREATED AUTHOR AUTHOR'S ORGANIZ ATION 04/10/2024 [facility] DATE CREATED AUTHOR AUTHOR'S ORGANIZ ATION 04/19/2024 [facility] DATE CREATED AUTHOR AUTHOR'S ORGANIZ ATION 04/24/2024 [facility] DATE CREATED AUTHOR AUTHOR'S ORGANIZ ATION 05/02/2024 [facility] d[facility] Specialists EPIC Care Teams (unrecognized sec tion and content) Team Status: Active Member Role Status Dates Andrea Golden DO Primary Care Provider Active Team Status: Active Member Role Status Dates Andrea Golden DO Primary Care Provider Active Start: May 23, 2023 Lisa Em Attending Provider Active Start: Diana [facility] 2023 Team Status: Active Member Role Status [...] Dates Espinoza Ruiz MD Attending Provider Active Sap Solution Manager Consultant Relationship Specialty Start Date End Date Andrea Golden MD [address] [place] [address] PCP - General Internal Medicine 08/27/22 Team Status: Inactive Member Role Status Dates Andrea Golden DO Attending Provider Active Sta rt: April 16, 2023 End: April 16, 2023 Sap Solution Manager Consultant Relationship Specialty Start Date End Date Andrea Golden DO [address] [place] [address] PCP - General Internal Medicine 12/27/23 Moustapha Ace MD [address] [place] [id number] Internal Medicine 12/27/23 Chrissy Hector MD [address] [place] [id number] Hematology/Oncology 12/27/23 Sap Solution Manager Consultant Relationship Specialty Start Date End Date Andrea Golden MD PCP - General Internal Medicine 08/27/22 Sap Solution Manager Consultant Relationship Specialty Start Date End Date Andrea Golden MD PCP - General Internal Medicine 08/27/22 Team Status: Active Member Role Status Dates Andrea Golden DO Primary Care Provider Active Start: November 22, 2023 Chrissy Hector MD Attending Provider Active St art: November 22, 2023 Team Status: Active Member Role Status Dates Andrea Golden DO Primary Care Provide r, Attending Provider Active Start: January 29, 2024 Team Status: Inactive Member Role Status Dates Andrea Golden DO Primary Care Provide r, Attending Provider Active Start: February 05, 2024 End: February 05, 2024 Sap Solution Manager Consultant Relationship Specialty Start Date End Date Andrea Golden MD PCP - General Internal Medicine 08/27/22 Sap Solution Manager Consultant Relationship Specialty Start Date End Date Andrea Golden MD PCP - General Internal Medicine 08/27/22 [facility] Solution Manager Consultant Relationship Specialty Start Date End Date Andrea Golden MD PCP - General Internal Medicine 08/27/22 Sap Solution Manager Consultant Relationship Specialty Start Date End Date Andrea Golden MD PCP - General Internal Medicine 08/27/22 Sap Solution Manager Consultant Relationship Specialty Start Date End Date Andrea [...] or prosecute any alcohol or drug abuse patient.[facility] HospitalIn the event this information is protected by the Federal Confidentiality of Alcohol and Drug Abuse Patient Records regulations: The Federal rules restrict any use of the information to criminally investigate or prosecute any alcohol or drug abuse patient.[facility] HospitalIn the event this information is protected by the Federal Confidentiality of Alcohol and Drug Abuse Patient Records regulations: The Federal rules restrict any use of the information to criminally investigate or prosecute any alcohol or drug abuse patient.[facility] HospitalIn the event this information is protected by the Federal Confidentiality of Alcohol and Drug Abuse Patient Records regulations: The Federal rules restrict any use of the information to criminally investigate or prosecute any alcohol or drug abuse patient.[facility] HospitalIn the event this information is protected by the Federal Confidentiality of Alcohol and Drug Abuse Patient Records regulations: The Federal rules restrict any use of the information to criminally investigate or prosecute any alcohol or drug abuse patient.[facility] HospitalIn the event this information is protected by the Federal Confidentiality of Alcohol and Drug Abuse Patient Records regulations: The Federal rules restrict any use of the information to criminally investigate or prosecute any alcohol or drug abuse patient.[facility] HospitalIn the event this information is protected by the Federal Confidentiality of Alcohol and Drug Abuse Patient Records regulations: The Federal rules restrict any use of the information to criminally investigate or prosecute any alcohol or drug abuse patient.[facility] FOR RECORDS PERTAINING TO PATIENTS WHO ARE [...] BE BASED ON THE PRIMARY CLINICAL RECORDS. [facility] [employer] [facility]. provides no warranty or guarantee of the accuracy or completeness of information in this document.
== END 2024-05-11 09:19 | disposition home or self-care (01) ==
LOC: HEMC 07:33
PROVIDERS: PCP Internal Medicine; Visit Provider Internal Medicine Hematology & Oncology
DX: D50.9 Iron deficiency anemia, unspecified (principal); K90.9 Intestinal malabsorption, unspecified; Z90.49 Acquired absence of other specified parts of digestive tract; Z98.51 Tubal ligation status; D64.9 Anemia, unspecified
CPT/HCPCS: G0463

== ENCOUNTER 2024-05-27 07:31 | Outpatient (RCR) | payer MEDICARE, OTHER, SELFPAY ==
[2024-05-18 08:55] VITALS: BP 124/71; PULSE 71; TEMP 36.8; O2SAT 98
[2024-05-18] MEDS: FERRIC CARBOXYMALTOSE 750 MG in 0.9 % SODIUM CHLORIDE 250 ML 795 MG IV (09:25)
[2024-05-27 07:55] VITALS: BP 139/82; PULSE 75; TEMP 36.6; O2SAT 78
[2024-05-27] MEDS: FERRIC CARBOXYMALTOSE 750 MG in 0.9 % SODIUM CHLORIDE 250 ML 795 MG IV (08:09)
== END 2024-06-08 10:29 | disposition home or self-care (01) ==
LOC: HEMC 07:31
PROVIDERS: PCP Internal Medicine; Visit Provider Internal Medicine Hematology & Oncology
DX: D50.9 Iron deficiency anemia, unspecified (principal); K90.9 Intestinal malabsorption, unspecified; D64.9 Anemia, unspecified
CPT/HCPCS: 96365; J1439

== ENCOUNTER 2024-07-15 08:12 | Outpatient (OUT) | payer MEDICARE, OTHER, SELFPAY ==
[2024-07-15 08:24] LABS: Basophils Percent Auto 0.4 % (0.2-2.0); Eosinophils Absolute Auto 0.3 10^3/uL (0.0-0.7); Eosinophils Percent Auto 4.3 % (0.9-7.0); Hemoglobin 12.9 g/dL (12.0-16.0); Immature Granulocytes Abs Auto 0.02 10^3/uL (0.00-0.03); Immature Granulocytes Pct Auto 0.3 % (0.0-0.5); Lymphocytes Absolute Auto 2.2 10^3/uL (1.2-3.8); Lymphocytes Percent Auto 33.1 % (20.5-60.0); Mean Corpuscular HGB Conc 33.9 g/dL (29.9-35.2); Mean Corpuscular Hemoglobin 31.5 pg (26.7-34.0); Mean Corpuscular Volume 92.9 fL (81.0-99.0); Mean Platelet Volume 9.3 fL (9.5-13.5); Monocytes Absolute Auto 0.6 10^3/uL (0.3-0.8); Monocytes Percent Auto 8.9 % (1.7-12.0); Neutrophils Absolute Auto 3.6 10^3/uL (1.4-6.5); Platelet Count 329 10^3/uL (150-450); Red Blood Count 4.09 10^6/uL (4.20-5.40); Red Cell Distribution Width 14.7 % (11.0-15.0); White Blood Count 6.7 10^3/uL (4.0-11.0)
[2024-07-15 08:57] LABS: Anion Gap 15.3; BUN Creatinine Ratio 16.8; Carbon Dioxide 27.1 mmol/L (21.0-32.0); Chloride 107 mmol/L (98-107); Estimated GFR (African America >60 (>=60 mL/min/1.73m^2); Estimated GFR (Non-African Ame 58 (>=60 mL/min/1.73m^2); Glucose 99 mg/dL (74-106); Potassium 3.4 mmol/L (3.5-5.1); Sodium 146 mmol/L (136-145)
[2024-07-15 09:10] LABS: Percent Iron Saturation 47.1 %
[2024-07-16 07:12] LABS: Vitamin B12 737 pg/mL (232-1245)
== END 2024-07-15 08:13 | disposition home or self-care (01) ==
LOC: LAB 08:13
PROVIDERS: PCP Internal Medicine; Visit Provider Internal Medicine Hematology & Oncology
DX: D64.9 Anemia, unspecified (principal); D50.9 Iron deficiency anemia, unspecified; K90.9 Intestinal malabsorption, unspecified
CPT/HCPCS: 36415; 80048; 82306; 82607; 82728; 83540; 83550; 85025

== ENCOUNTER 2024-07-21 07:37 | Outpatient (RCR) | payer MEDICARE, OTHER, SELFPAY | END 2024-07-22 08:32 | disposition home or self-care (01) | LOC: HEMC 07:37 | PROVIDERS: PCP Internal Medicine; Visit Provider Internal Medicine Hematology & Oncology | DX: D50.9 Iron deficiency anemia, unspecified (principal); K90.9 Intestinal malabsorption, unspecified; Z90.49 Acquired absence of other specified parts of digestive tract; D64.9 Anemia, unspecified; R05.3 Chronic cough; K21.9 Gastro-esophageal reflux disease without esophagitis | CPT/HCPCS: G0463 ==

== ENCOUNTER 2024-10-02 09:02 | Emergency (ER) | payer MEDICARE, OTHER, SELFPAY ==
--- OUTSIDE RECORDS SUMMARY | 2024-07-07 04:30 | XMS_ITS ---
Author Organization The [facility] in [place] Address [address] [place] [address] Care Team Providers Care Leather Skinner Name Role Phone Andrea Wu DO Primary Care Provider Chrissy Lang [phone] REASON FOR VISIT MD Encounters Encounter Location Date Provider Diagnosis [facility] Oncology [address] [place] [address] 07/07/2024 Chrissy Hector Plan Of Treatment Next Appt Details Provider Name:Chrissy Hector , 01/26/2025 08:30:00 AM, [address] [place] [address], [address], Progress Notes * CHESTERIvoryOB:[birth year] (74 yo F)Acc No.[id number]:07/07/2024 UNLOCKED PROGRESS NOTE Progress Notes Patient: Munira CHAIDEZ Provider: Racheal Hector M.D. :1950 A ge:73 Y S ex:Female Date:07/07/2024 Address:[address] [place] [phone] Pcp:Andrea Wu DO Subjective: * Chief Complaints: * 1 . MD. * Medical History: Objective: * Vitals: Assessment: Plan: * Treatment: * * Electronic signature of Tu Hector MD, [id number] on 10/02/2024 at 09:11 AM EDT Sign off status: Pending Visit Status: C ANC (Cancelled) * Provider: Racheal Hector M.D. Date: 0 07/07/2024 Generated for Beth enrique/Penelope/Rehan on: 0 10/02/2024 09:11 AM EDT
--- OUTSIDE RECORDS SUMMARY | 2024-07-21 04:30 | XMS_ITS ---
Author Organization The [facility] in [place] Address [address] [place] [address] Care Team Providers Care Head Waiter/Waitress Banquet Name Role Phone Andrea Wu DO Primary Care Provider Chrissy Lang [phone] REASON FOR VISIT MD Encounters Encounter Location Date Provider Diagnosis The [facility] Oncology [address] [place] [address] 07/21/2024 Chrissy Hector Plan Of Treatment Next Appt Details Provider Name:Chrissy Hector , 01/26/2025 08:30:00 AM, [address] [place] [address], [phone], Progress Notes * Ivory CHESTEROB:[birth year] (74 yo F)Acc No.[id number]:07/21/2024 UNLOCKED PROGRESS NOTE Progress Notes Patient: Munira CHAIEDZ Provider: Racheal Hector M.D. :1950 A ge:73 Y S ex:Female Date:07/21/2024 Address:[address] [place] [address] Pcp:Andrea Wu DO Subjective: * Chief Complaints: * 1 . MD. * Medical History: Objective: * Vitals: Assessment: Plan: * Treatment: * * Electronic signature of Tu Hector MD, [id number] on 10/02/2024 at 09:12 AM EDT Sign off status: Pending Visit Status: C ANC (Cancelled) * Provider: Racheal Hector M.D. Date: 0 07/21/2024 Generated for Beth enrique/Penelope/Rehan on: 0 10/02/2024 09:12 AM EDT
--- OUTSIDE RECORDS SUMMARY | 2024-07-21 04:30 | XMS_ITS ---
Author Organization The [facility] in [place] Address [address] [place] [address] Care Team Providers Care Earth Science Teacher Name Role Phone Andrea Wu DO Primary Care Provider Chrissy Lang [phone] REASON FOR VISIT MD Encounters Encounter Location Date Provider Diagnosis [facility] Oncology [address] [place] [phone] 07/21/2024 Chrissy Hector Plan Of Treatment Next Appt Details Provider Name:Chrissy Hector , 01/26/2025 08:30:00 AM, [address] [place] [address], [address], Progress Notes * Ivory CHESTEROB:[birth year] (74 yo F)Acc No.[id number]:07/21/2024 UNLOCKED PROGRESS NOTE Progress Notes Patient: Munira CHAIDEZ Provider: Racheal Hector M.D. :1950 A ge:73 Y S ex:Female Date:07/21/2024 Address:[address] [place] [address] Pcp:Andrea Wu DO Subjective: * Chief Complaints: * 1 . MD. * Medical History: Objective: * Vitals: Assessment: Plan: * Treatment: * * Electronic signature of Tu Hector MD, [id number] on 10/02/2024 at 09:12 AM EDT Sign off status: Pending Visit Status: P EN (Pending) * Provider: Racheal Hector M.D. Date: 0 07/21/2024 Generated for Beth enrique/Penelope/Rehan on: 0 10/02/2024 09:12 AM EDT
[2024-10-02 09:08] VITALS: BP 135/77; PULSE 101; TEMP 37.6; O2SAT 99; BMI 27.4
--- OUTSIDE RECORDS SUMMARY | 2024-10-02 09:12 | XMS_ITS | Encounter Summary ---
Author Organization [facility] Address [address] [facility] [place] [address] Care Team Providers Care Director Business Name Role Phone Andrea Wu DO Primary Care Provider [phone] Encounter Details Date Type Department Care Team (Late st Contact Info) Description 06/20/2023 Orders Only [facility] [address] [place] [address] Andrea Wu DO [address] [place] [address] Social History Tobacco Use Types Packs/Day Years Used Date Smoking Tobacco: Never Smokeless Tobacco: Never Alcohol Use Standard Drinks/Week Comments Never 0 (1 standard drink = 0.6 oz pur e alcohol) Caffeine : soda Comments Unknown Sex and Gender Information Value Date Recorded Sex Assigned at Female 08/28/2022 7:05 PM EDT Legal Sex Female 6:52 PM EDT Gender Identity Female 08/28/2022 7:05 PM EDT Sexual Orientation Not on file documented as of this encounter Plan of Treatment Upcoming Encounters Date Type Department Care Team (Late st Contact Info) Description 12/28/2024 9:20 AM EDT Office Visit [facility] [address] [facility] [address] [place] [address] Ezio Vasquez MD [address] [place] [address] 02/02/2025 8:15 AM EST Office Visit [facility] [address] [place] [address] Uriah Kilpatrick, DO [address] [place] [address] 05/11/2025 9:45 AM EST Office Visit [facility] [address] [place] [address] Madison Burns, DO [address] [place] [address] documented as of this encounter Procedures Procedure Name Priority Date/Time Associated Diagnosis Comments CT SOFT TISSUE NECK WO CO Routine 05/07/2023 4:[address] CHEST WO IV CONTRAST Routine 05/07/2023 2:47 PM EST documented in this encounter Results * CT SOFT TISSUE NECK WO CO (05/07/2023 4:15 PM EST) Anatomical Region Laterality Modality Radiographic Xiomy ging us Ezio Vasquez MD IMG XR PROCEDURES Final Resul t * CT chest wo IV contrast (05/07/2023 2:47 PM EST) Anatomical Region Laterality Modality Body, Chest Computed Tomogra phy us Andrea Wu DO IMG CT PROCEDURES Final Resul t documented in this encounter Visit Diagnoses Not on filedocumented in this encounter Care Teams Director Business Relationship Specialty Start Date End Date Andrea Wu DO PCP - General Internal Medicine 08/27/22 documented as of this encounter
--- OUTSIDE RECORDS SUMMARY | 2024-10-02 09:12 | XMS_ITS | Encounter Summary ---
Author Organization [facility] Address [address] [place] [address] Care Team Providers Care Antisqueak Applier Name Role Phone Andrea Wu DO Primary Care Provider [phone] Reason for Visit * Reason Comments Med Refill Encounter Details Date Type Department Care Team (Late st Contact Info) Description 10/23/2022 Refill [facility] [address] [place] [address] Madison Burns DO [address] [place], [place] [id number] Social History Tobacco Use Types Packs/Day Years Used Date Smoking Tobacco: Never Comments Unknown Sex and Gender Information Value [...] ALL [address] [place] [address] Ezio Vasquez MD [address] [place], [place] [phone] 02/02/2025 8:15 AM EST Office Visit [facility] [address] [place] [address] Uriah Kilpatrick, DO [address] [place] [address] 05/11/2025 9:45 AM EST Office Visit [facility] [address] [place] [address] Madison Burns DO [address] [place] [address] documented as of this encounter Visit Diagnoses Not on filedocumented in this encounter Care Teams Antisqueak Applier Relationship Specialty Start Date End Date Andrea Wu DO PCP - General Internal Medicine 08/27/22 documented as of this encounter
--- OUTSIDE RECORDS SUMMARY | 2024-10-02 09:12 | XMS_ITS | Clinical Summary ---
Author Organization [facility] Address [address] 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 Name Role Phone Unavailable Primary Care Provider Unavailabl e Allergies Active Allergy Reactions Criticality Noted Date Comments Amoxicillin Unknown 09/14/2023 Bee Venom Protein (Honey Bee) Anaphylaxis High 10/21/2018 Iodinated Contrast Media Anaphylaxis,Hives,Ot her,Shortness of breath,Unknown High 12/08/2007 Iodine Anaphylaxis,Unknown High 01/14/2023 Penicillin Rash Low 09/14/2023 Sulfa (Sulfonamide Antibiotics) Rash,Unknown Low 12/08/2007 Sulfacetamide Lql-Bcsqae-Jisa Unknown 09/14/2023 Wasp Venom Anaphylaxis High 10/21/2018 Other Reaction(s): Anaphylaxis Medications albuterol 90 mcg/actuation inhaler Inhale 2 puffs. Acti ve Fosamax 70 mg tablet 1 tablet 30 minutes before the first food, beverage or medicine of the day with plain water Orally for 30 day(s) Active amLODIPine (Norvasc) 5 mg tablet Daily 3 Active atorvastatin (Lipitor) 10 mg tablet 1 (one) time each day at the same time Active aspirin 81 mg EC tablet once every 24 hours. Active betamethasone valerate (Valisone) 0.1 % ointment 4 Active cetirizine (ZyrTEC) 10 mg tablet take 1 tablet by mouth once daily if needed for allergies Active cholecalcifero l (Vitamin D-3) 50 mcg (2,000 unit) capsule Take 1 capsule (50 mcg) by mouth once daily. 3 Active butalbital-ti taminophen-caf f (Fioricet) 50-300-40 mg capsule Take by mouth. Activ e Breo Ellipta 200-25 mcg/dose inhaler 3 Active EpiPen 2-Giovani 0.3 mg/0.3 mL injection syringe as directed Injection Active estradiol (Estrace) 0.01 % (0.1 mg/gram) vaginal cream See Instructions, 42.5 gm, Refill(s) 0, apply pea sized amount to urethra 2x/wk, [facility], cm, 02/20/23 8:48:00 EST, Height/Length Dosing, 68.5, kg, 02/20/23 8:48:00 EST, Weight Dosing 3 Active codeine-guaife nesin (Robitussin-AC ) 10-100 mg/5 mL syrup Every 6 hours 4 Active famotidine (Pepcid) 20 mg tablet Take by mouth. 3 Active iFerex 150 150 mg iron capsule TAKE 1 CAPSULE BY MOUTH EVERY OTHER DAY Oral for 30 Days 3 Active levothyroxine (Synthroid, Levoxyl) 100 mcg tablet once every 24 hours. Active metroNIDAZOLE (Metrogel) 0.75 % (37.5mg/5 gram) vaginal gel Insert 1 Applicatorful into the vagina. Active montelukast (Singulair) 10 mg tablet Daily 4 Active Macrobid 100 mg capsule Take 1 capsule (100 mg) by mouth. 2 Active pantoprazole (ProtoNix) 40 mg EC tablet Take 1 tablet (40 mg) by mouth. Active fluticasone propionate (Xhance) 93 mcg/actuation aerosol breath activated Administer into affected nostril(s). Active Active Problems Problem Noted Date Diagnosed Date Chronic cough 11/04/2023 Social History Tobacco Use Types Packs/Day Years Used Date Smoking Tobacco: Never Smokeless Tobacco: Never Tobacco Cessation:Counseling Given: Not Answered Alcohol Use Standard Drinks/Week Comments Never 0 (1 standard drink = 0.6 oz pur e alcohol) PHQ-2 Answer Date Recorded Patient Health Questionnaire-2 Score 0 11/04/2023 Comments Unknown Sex and Gender Information Value Date Recorded Sex Assigned at Not on file Legal Sex Female 5:55 PM EST Gender Identity Not on file Sexual Orientation Not on file Last Filed Vital Signs Vital Sign Reading Time Taken Comments Blood Pressure - - Pulse - - Temperature 36.2 C (97.2 F) 10/08/2023 9:30 AM EDT Respiratory Rate - - Oxygen Saturation - - Inhaled Oxygen Concentration - - Weight 75 kg (165 lb 4.8 oz) 10/08/2023 9:30 AM EDT Height 157.5 cm (5' 2 ) 10/08/2023 9:30 AM EDT Body Mass Index 30.23 10/08/2023 9:30 AM EDT Plan of Treatment Health Maintenance Due Date Last Done Comments CT Colonography 1952 FIT-DNA (Cologuard) 1952 FIT 1952 Lipid Panel 1950 Medicare Annual Wellness Visit (AWV) 1952 Sigmoidoscopy 1950 TSH Level 1952 Hepatitis C Screening 1970 DTaP/Tdap/Td Vaccines (1 - Tdap) 1974 Zoster Vaccines (1 of 2) 2002 COVID-19 Vaccine ( season) 2023 02/14/2023, 12/22/2021, 07/04/2021, Additional history exists Mammogram 02/06/2024 02/05/2023, 01/16, 01/25/2021, Additional history exists Influenza Vaccine (#1) 2024 , 12/18/2021, 11/23/2020, Additional history exists Colonoscopy 05/21/2033 05/22/2023, 08/17, 01/16/2015, Additional history exists Colorectal Cancer Screening 05/21/2033 Pneumococcal Vaccine Completed 01/05/2019, 01/10/2017, 01/04/2016 Bone Density Scan Completed 01/12/2021 RSV High Risk: (Elderly (60+) or Population) Completed 12/31/2022 HIB Vaccines Aged Out No longer eligi ble based on patient's age to complete this topic HPV Vaccines Aged Out No longer eligi ble based on patient's age to complete this topic Hepatitis A Vaccines Aged Out No long er eligible based on patient's age to complete this topic Hepatitis B Vaccines Aged Out No long er eligible based on patient's age to complete this topic IPV Vaccines Aged Out No longer eligi ble based on patient's age to complete this topic Meningococcal Vaccine Aged Out No jack shannan eligible based on patient's age to complete this topic Rotavirus Vaccines Aged Out No longer eligible based on patient's age to complete this topic Insurance [address] [place] [address] [facility] MEDICARE SUPPLEMENT MEDICARE PART A AND B [address] [place] [address] [facility] MEDICARE SUPPLEMENT MEDICARE PART A AND B
--- OUTSIDE RECORDS SUMMARY | 2024-10-02 09:12 | XMS_ITS | Clinical Summary ---
Author Organization [facility] Address [address] [place], [place] [address] Care Team Providers Care Vegetable Specker Name Role Phone Moustapha Haley MD Unavailable [phone] Chrissy Hector MD Unavailable [phone] Andrea Wu DO Primary Care Provider [phone] Allergies Active Allergy Reactions Criticality Noted Date Comments Amoxicillin Other: See Comments 12/27/2023 Contrast Dye 12/08/2007 Sulfa (Sulfonamide Antibiotics) 11/17 Medications levothyroxine sodium(SYNTHROID 100 MCG TAB) Take one(1) tablet daily. 0 12/08/19 08 Active fluticasone-vilan terol (BREO ELLIPTA) 100-25 mcg/dose inhaler Inhale 1 Inhalation as instructed once daily. Active EPINEPHrine (EPIPEN) 0.3 mg/0.3 mL auto-injector Inject 0.3 mg intramuscularly as needed. Active fluticasone (FLONASE) 50 mcg/actuation nasal spray Use 1 [place]enton in each nostril once daily. Active atorvastatin (LIPITOR) 10 mg tablet Take 10 mg by mouth once daily. Active albuterol HFA (PROAIR HFA) 90 mcg/actuation inhaler Inhale 2 Puffs as instructed. Active montelukast (SINGULAIR) 10 mg tablet Take 10 mg by mouth daily at bedtime. Active alendronate (FOSAMAX) 70 mg tablet Take 70 mg by mouth once each week. Active metroNIDAZOLE (METROGEL) 0.75 % Vaginal Gel Use 1 Applicatorful vaginally daily at bedtime. Active Estradiol (VAGIFEM) 10 mcg tab vaginal tablet Use 10 mcg vaginally once daily. Active orphenadrine ER (NORFLEX) 100 mg tablet Two tablets daily as needed 40 tablet 0 02/06/20 16 Active amLODIPine (NORVASC) 5 mg tablet Take by mouth once daily. Active Cetirizine 10 mg cap Take by mouth. Activ e famotidine (PEPCID) 20 mg tablet Take 20 mg by mouth two times a day. Active iron polysaccharide complex (FERREX 150 ORAL) Take by mouth every other day. Active codeine phosphate/guaifen esin (CODEINE-GUAIFENE SIN ORAL) Take by mouth. Activ e pantoprazole DR (PROTONIX) 40 mg tablet Take 40 mg by mouth two times a day. Active fluticasone propionate (XHANCE) 93 mcg/actuation nasal spray Use in each nostril two times a day. Active nitrofurantoin macrocrystal (MACRODANTIN) 100 mg capsule 100 mg by ORAL/FEEDING TUBE route. Active betamethasone valerate 0.1 % cream Apply to affected area. Active cholecalciferol, vitamin D3, (D3-2000 ORAL) Take by mouth. Active calcium carbonate/vitamin D3 (CALCIUM + D ORAL) Take by mouth. Activ e iron bis-glycinat/vit C/FA/B12 (GENTLE IRON ORAL) Take by mouth. Acti ve mv-min/iron/folic /calcium/vitK (WOMEN'S MULTIVITAMIN ORAL) Take by mouth. Activ e vit A/vit C/biotin/zinc/copy lathe operator per (ETNT-FESS-YSUB,V IT A,C-BIOTIN, ORAL) Take by mouth. Activ e aspirin 325 mg cap Take by mouth. Activ e Ibuprofen 200 mg cap Take by mouth every 6 hours as needed. Active acetaminophen (TYLENOL) 325 mg tablet Take 650 mg by mouth every 6 hours as needed. Active peg 3350-Electrolytes (GOLYTELY) 236-22.74-6.74 -5.86 gram suspensionIndicat ions:Iron deficiency anemia due to chronic blood loss Add water to powder in the jug up to the fill line. Starting at 6pm the evening before the colonsocopy, drink 8 oz every 15 minutes until half to three quarters of the jug is consumed AND returns are clear. Take a break. Finish the remainder of the jug 4 hours before your procedure. 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) 07/27/2024 Telephone Gastroenterology [address] [address] Kasey Fallon MD 07/20/2024 Results Follow-Up Gastroenterology [address] [address] Kasey Fallon MD 07/13/2024 1:39 PM EDT Anesthesia Event Gastroenterology [address] [address] Luz Elena Franklin MD 07/13/2024 12:01 PM EDT - 07/13/2024 11:59 PM EDT Hospital Encounter Gastroenterology [address] [address] Kasey Fallon MD Iron deficiency anemia due to chronic blood loss [D50.0] Discharge Disposition: Home 07/13/2024 Travel 07/06/2024 GI Preprocedure Call Gastroenterology [address] [address] Noemí Crow RN from Last 3 Months Immunizations Immunization Administration Dates Next Due influenza (HD-IIV4) vaccine, age 65+ yr, high dose, quadrivalent, PF (FLUZONE HIGH-DOSE) 12/18/2021 influenza (IIV3) vaccine, tr ivalent, PF (AFLURIA, FLUARIX, FLULAVAL, FLUVIRIN, FLUZONE) 01/04/2016 influenza (IIV4) vaccine, ag e 6 mo - 64 yr, quadrivalent, PF (AFLURIA, FLUARIX, FLULAVAL, FLUZONE) 12/07/2019,01/10/2017 influenza (aIIV3) vaccine, a ge 65+ yr, trivalent, PF (FLUAD) 12/19/2017 influenza (aIIV4) vaccine, a ge 65+ yr, quadrivalent, PF (FLUAD QUAD) 12/31/2022,11/23/2020 influenza (ccIIV4) vaccine, age 6+ mo, quadrivalent, PF (FLUCELVAX) 01/05/2019 influenza vaccine, unspecified formulation 12/17 pneumococcal conjugate (PCV1 3) vaccine, 13 valent (PREVNAR 13) 01/10/2017 pneumococcal polysaccharide (PPV23) vaccine, 23 valent (PNEUMOVAX 23) 01/05/2019,01/04/2016 respiratory syncytial virus (RSV) vaccine, adjuvanted (AREXVY) 12/31/2022 Family History Medical History Relation Comments Cancer Father Arthritis Maternal Grandmother RA Cancer Mother Relation Status Comments Father Maternal Grandmother Mother Social History Tobacco Use Types Packs/Day Years Used Date Smoking Tobacco: Never Smokeless Tobacco: Never Alcohol Use Standard Drinks/Week Comments No 0 (1 standard drink = 0.6 oz pur e alcohol) Area Deprivation Index Answer Date Jaylon rded National Score (1-100), lower number is lower ri sk 59 12/27/2023 State Score (1-10), lower number is lower risk 4 12/27/2023 Data from: https://www.neighborhoodatlas.medicine.[facility].edu/. 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 on file Not on file Not on file Last Filed Vital Signs Vital Sign Reading Time Taken Comments Blood Pressure 136/84 07/13/2024 3:50 PM EDT Pulse 68 07/13/2024 3:50 PM EDT Temperature 36.5 C (97.7 F) 07/13/2024 3:20 PM EDT Respiratory Rate 18 07/13/2024 3:20 PM EDT Oxygen Saturation 94% 07/13/2024 3:50 PM EDT Inhaled Oxygen Concentration - - Weight 74.8 kg (165 lb) 07/13/2024 12:52 PM EDT Height 160 cm (5' 3 ) 07/13/2024 12:52 PM EDT Body Mass Index 29.23 07/13/2024 12:52 PM EDT Plan of Treatment Health Maintenance Due Date Last Done Comments Anxiety Screening 1970 Depression Screening 1970 Hepatitis C Screening 1970 DTaP,Tdap,Td Vaccine (1 - Tdap) 07/27/1971 CT Colonography 1997 Cologuard (FIT-DNA) 1997 Colonoscopy 1997 Colorectal Cancer Screening 1997 Diabetes Screening 1997 Fecal Occult Blood 1997 Lipid Screening 1997 Sigmoidoscopy 1997 Shingrix Vaccine (1 of 2) 2002 Medicare Annual Wellness Visit 07/16/2017 Mammogram Screening 02/02/2023 02/02/2022, 02/02/2022, 01/25/2021, Additional history exists Advance Directive Discussion 03/18/2024 Covid-19 Vaccine (2023-2 5 season) 2024 01/13/2024, 02/14/2023, 12/22/2021, Additional history exists Influenza Vaccine (#1) 2024 , 12/31/2022, 12/18/2021, Additional history exists Pneumococcal Vaccine: 50+ Completed 2018, 01/10/2017, 01/04/2016 Bone Density Screening Completed 01/12/2021, 2018 RSV Vaccine Completed 12/31/2022 Medical Devices Implanted Type Area Director Nicu Device Identifier Shelf Expiration Date Model / Serial / Lot Pin Pin Right: Bone - Shoulder Screw Screw Right: Bone - Shoulder Procedures Procedure Name Priority Date/Time Associated Diagnosis Comments SURGICAL PATHOLOGY Routine 07/13/2024 3: 06 PM EDT Iron deficiency anemia due to chronic blood loss Abnormal finding on GI tract imaging INTUBATION Routine 07/13/2024 1:47 PM EDT ENTEROSCOPY Routine 07/13/2024 12:36 PM EDT Iron deficiency anemia due to chronic blood loss Abnormal finding on GI tract imaging from Last 3 Months Results * SURGICAL PATHOLOGY (07/13/2024 3:06 PM EDT) Case Report Surgical Pathology Report Case: [id number] Authorizing Provider: Kasey Fallon MD Collected: 07/13/2024 03:06 PM Ordering Location: Gastroenterology Received: 07/13/2024 06:18 PM Pathologist: Elijah Sharp MD Specimens: A) - Small Bowel, Ileum, Biopsy, Mid ileal stricture B) - Small Bowel, Ileum, Biopsy, Distal ileal C) - Small Bowel, Terminal Ileum, Biopsy D) - Colon, Hepatic Flexure, Polyp 07/15/2024 11:14 AM EDT [facility] FINAL DIAGNOSIS A. Mid ileal stricture, biopsy: - Small bowel mucosa with ulcer. - Negative for dysplasia or granulomas. B. Ileum, biopsy: - Small bowel mucosa with no significant pathologic changes. C. Terminal ileum, biopsy: - Small bowel mucosa with no significant pathologic changes. D. Hepatic flexure, polypectomy: - Fragments of tubular adenoma. 07/15/2024 11:14 AM EDT [facility] at 1114 EDT Gross Description A. Small Bowel, Ileum, Biopsy Received in formalin are two pieces of padron-brown, soft tissue aggregating to 0.6 x 0.3 x 0.1 cm. Totally submitted in one cassette. B. Small Bowel, Ileum, Biopsy Received in formalin are multiple pieces of padron-brown, soft tissue aggregating to 1.2 x 0.3 x 0.1 cm. Totally submitted in one cassette. C. Small Bowel, Terminal Ileum, Biopsy Received in formalin are two pieces of padron-brown, soft tissue aggregating to 0.9 x 0.3 x 0.1 cm. Totally submitted in one cassette. D. Colon, Hepatic Flexure, Polyp Received in formalin are multiple segments of padron-brown polypoid tissue ranging in size from 0.8 x 0.4 x 0.1 cm to 0.6 x 0.5 x 0.1 cm. No stalks are present. The lines of resection are noted. The specimens are bisected and totally submitted in one cassette. Gross examination performed at [facility], [address] [place], [place] [id number] [facility] July 13, 2024 10:18 PM 07/15/2024 11:14 AM EDT [facility] Performing Lab Diagnostic interpretation performed at: [facility], [address] [place] [address] CLIA# [id number] Rn Cardiac Rehab: Tanvi Astudillo MD 07/15/2024 11:14 AM EDT [facility] Disclaimer Laboratory Developed Test (LDT) Disclaimer: Performance characteristics of immunohistochemica l, immunofluorescent, and chromogenic in-situ hybridization tests have been determined by the performing laboratory within [facility]'s [facility] Pathology and Laboratory Medicine Department ([facility], [facility], [facility], [facility], [facility], [facility], or [facility]) in a manner consistent with CLIA requirements. One or more of these tests may not have been cleared or approved by the FDA. [facility] is regulated under CLIA as qualified to perform high-complexity testing. These tests are used for clinical purposes. These should not be regarded as investigational or for research. Positive and negative controls stain appropriately. 07/15/2024 11:14 AM EDT [facility] Tissue BIOPSY OF ILEUM / Unknown 07/13/2024 3:06 PM EDT 07/13/2024 6:18 PM EDT Comment:R/o acute/chronic in flammation Tissue specimen (specimen) BIOPSY OF ILEUM / Unknown 07/13/2024 3:07 PM EDT 07/13/2024 6:18 PM EDT Comment:R/o acute/chronic in flammation Tissue specimen (specimen) STRUCTURE OF DISTAL PORTION OF ILEUM / Unknown 07/13/2024 3:08 PM EDT 07/13/2024 6:18 PM EDT Comment:R/o acute/chronic in flammation Tissue specimen (specimen) POLYP OF HEPATIC FLEXURE OF COLON / Unknown 07/13/2024 3:09 PM EDT 07/13/2024 6:18 PM EDT Comment:R/o adenoma & SSA us Kasey Fallon MD SURGICAL PATHOLOGY Final Result [facility] [address] [place] [address], [facility] [address] [place] [address], * Airway (07/13/2024 1:47 PM EDT) Narrative Rosaura Zamudio APRN.RARE/ENDANGERED SPECIES SPECIALIST - 07/13/2024 1:47 PM EDT Rosaura Zamudio APRN.RARE/ENDANGERED SPECIES SPECIALIST 07/13/2024 1:59 PM Airway General Information Procedure Start Time/Medication Administration: 07/13/2024 1:47 PM Procedure End Time: 07/13/2024 1:58 PM Patient location during procedure: OR Timeout Performed Pre-procedure: timeout performed Consent Obtained: Yes Patient identity confirmed: arm band and patient Staffing RARE/ENDANGERED SPECIES SPECIALIST: Rosaura Zamudio APRN.RARE/ENDANGERED SPECIES SPECIALIST Performed by: JOHNNY Indications and Patient Condition Indications for airway management: anesthesia Preoxygenated: yes anesthesia circuit Patient position: sniffing Method: rapid sequence Cricoid Pressure: No Manual In-Line Stabilization: No Difficult Mask: No Final Airway Details Final airway type: endotracheal airway Final Endotracheal Airway: ETT Cuffed: yes Successful intubation technique: video laryngoscopy Devices used: Glidescope Endotracheal tube insertion site: oral Blade size: #3 ETT size (mm): 7.5 Measured from: teeth Measurement (cm): 2 Placement verified by: capnometry Cormack-Lehane Classification: grade IIa - partial view of glottis Number of attempts at approach: 1 Airway not difficult us Luz Elena Franklin MD ANESTHESIA ORDERABLES Final Resu lt * ENTEROSCOPY (07/13/2024 12:36 PM EDT) Anatomical Region Laterality Modality Other 07/13/2024 12:3 6 PM EDT Narrative 07/13/2024 3:20 PM EDT Q3 Patient Name: Munira Chester Procedure Date: 07/13/2024 12:36 PM Date of : 1950 Admit Type: Outpatient Age: 73 Gender: Female Note Status: Finalized Attending MD: Kasey Fallon MD, [id number] Procedure: Lower Device-Assisted Enteroscopy without Fluoroscopy Indications: Abnormal video capsule endoscopy Providers: Kasey Fallon MD Patient Profile: This is a 73 year old female. Refer to note in patient chart for documentation of history and physical. Referring Physician: Kasey Fallon MD (Referring MD) Medicines: See the Anesthesia note for documentation of the administered medications, General Anesthesia Complications: No immediate complications. Requesting Provider: Procedure: Pre-Anesthesia Assessment: - Prior to the procedure, a History and Physical was performed, and patient medications and allergies were reviewed. The patient is competent. The risks and benefits of the procedure and the sedation options and risks were discussed with the patient. All questions were answered and informed consent was obtained. Patient identification and proposed procedure were verified by the physician, the nurse and the anesthesiologist in the endoscopy suite. Mental Status Examination: alert and oriented. Prophylactic Antibiotics: The patient does not require prophylactic antibiotics. Prior Anticoagulants: The patient has taken no anticoagulant or antiplatelet agents. ASA Grade Assessment: II - A patient with mild systemic disease. After reviewing the risks and benefits, the patient was deemed in satisfactory condition to undergo the procedure. The anesthesia plan was to use general anesthesia. Immediately prior to administration of medications, the patient was re-assessed for adequacy to receive sedatives. The heart rate, respiratory rate, oxygen saturations, blood pressure, adequacy of pulmonary ventilation, and response to care were monitored throughout the procedure. The physical status of the patient was re-assessed after the procedure. - ASA Grade Assessment: III - A patient with severe systemic disease. After I obtained informed consent, the scope was passed under direct vision using the balloon-assisted technique. Throughout the procedure, the patient's blood pressure, pulse, and oxygen saturations were monitored continuously. The Colonoscope was introduced through the anus and advanced to the the mid ileum. After I obtained informed consent, the scope was passed under direct vision using the balloon-assisted technique. Throughout the procedure, the patient's blood pressure, pulse, and oxygen saturations were monitored continuously.The lower device-assisted enteroscopy was performed without difficulty. The patient tolerated the procedure well. Moderate Sedation: General anesthesia was administered by the anesthesia team. General anesthesia was administered by the anesthesia team. Findings: An 8 mm polyp was found in the hepatic flexure. The polyp was sessile. The polyp was removed with a cold snare. Resection and retrieval were complete. Estimated blood loss was minimal. The distal ileum and terminal ileum mucosa appeared normal. Biopsies were taken with a cold forceps for histology. The mid ileum contained a series of at least 4x benign-appearing, intrinsic moderate diaphragmatic mildly ulcerated stenosis. The most distal stricture was the narroest, measuring less than one cm (in length) x ranging from 9-12 cm (inner diameter) that was traversed after dilation. A TTS dilator was passed through the scope. Dilation with a 10-11-12 mm x 5.5 cm CRE balloon (to a maximum balloon size of 11 mm) dilator was performed. Biopsies were taken with a cold forceps for histology or the strictures that were not dilated. Estimated blood loss was minimal. Area was tattooed with an injection of [place] on the downstream side of the most downstream stricture. Impression: - One 8 mm polyp at the hepatic flexure, removed with a cold snare. Resected and retrieved. 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 Crohns disease is another consideration, but overall appearance and lack of additional ulcers makes this less likely. The the narrowest stricture was dilated with a 10-11-12 mm x 5.5 cm CRE balloon (to a maximum balloon size of 11 mm). Biopsied. Tattooed on the downstream side of the most downstream stricture. Estimated Blood Loss: Estimated blood loss was minimal. Recommendation: - Discharge patient to home (ambulatory). - Resume previous diet. - Patient has a contact number available for emergencies. The signs and symptoms of potential delayed complications were discussed with the patient. Return to normal activities tomorrow. Written discharge instructions were provided to the patient. - Await pathology results. Procedure Code(s): --- Professional --- 71665, Colonoscopy, flexible; with removal of tumor(s), polyp(s), or other lesion(s) by snare technique 66973, Colonoscopy, flexible; with transendoscopic balloon dilation 68958, Colonoscopy, flexible; with transendoscopic balloon dilation 66242, 59, Colonoscopy, flexible; with biopsy, single or multiple 07452, Colonoscopy, flexible; with directed submucosal injection(s), any substance 56597, Unlisted procedure, small intestine Diagnosis Code(s): --- Professional --- D12.3, Benign neoplasm of transverse colon (hepatic flexure or splenic flexure) K56.699, Other intestinal obstruction unspecified as to partial versus complete obstruction R93.3, Abnormal findings on diagnostic imaging of other parts of digestive tract CPT copyright 2020 [employer]. All rights reserved. Attending Participation: I personally performed the entire procedure. Scope In: 1:54:34 PM Scope Out: 3:05:33 PM MD Kasey Davis MD 07/13/2024 3:18:19 PM This report has been signed electronically by Kasey Fallon MD Number of Addenda: 0 Note Initiated On: 07/13/2024 12:36 PM Kasey Fallon MD DIGESTIVE DISEASE Final Result from Last 3 Months Insurance MEDICARE MMO MEDICARE SUPPLEMENT Care Teams Vegetable Specker Relationship Specialty Start Date End Date Andrea Wu DO [address] [place] [address] PCP - General Internal Medicine 12/27/23 Moustapha Haley MD [address] [place] [id number] Internal Medicine 12/27/23 Chrissy Hector MD [address] [place] [id number] Hematology/Oncology 12/27/23
--- OUTSIDE RECORDS SUMMARY | 2024-10-02 09:12 | XMS_ITS | Encounter Summary ---
Author Organization [facility] Address [address] [place] [address] Care Team Providers Care Cashier Host/Hostess Name Role Phone Andrea Wu DO Primary Care Provider [phone] Encounter Details Date Type Department Care Team (Late st Contact Info) Description 02/03/2024 Orders Only [facility] [address] [facility] [address] [place] [address] Madison Burns DO [address] [place] [address] Social History Tobacco Use Types Packs/Day Years [...] 12/28/2024 9:20 AM EDT Office Visit [facility] [address] [facility] [address] [place] [address] Ezio Vasquez MD [address] [place] [address] 02/02/2025 8:15 AM EST Office Visit [facility] [address] [place] [id number] Uriah Kilpatrick, DO [address] [place] [address] 05/11/2025 9:45 AM EST Office Visit [facility] [address] [place] [phone] Madison Burns, [address] [place] [address] documented as of this encounter Procedures Procedure Name Priority Date/Time Associated Diagnosis Comments MAMMOGRAM, BILATERAL, SCREEN:* Routine 02/03/2024 12:39 PM EST documented in this encounter Results * MAMMOGRAM, BILATERAL, SCREEN:* (02/03/2024 12:39 PM EST) Anatomical Region Laterality Modality Radiographic Xiomy ging us Madison Burns DO IMG XR PROCEDURES Final Res ult documented in this encounter Visit Diagnoses Not on filedocumented in this encounter Care Teams Cashier Host/Hostess Relationship Specialty Start Date End Date Andrea Wu DO PCP - General Internal Medicine 08/27/22 documented as of this encounter
--- OUTSIDE RECORDS SUMMARY | 2024-10-02 09:12 | XMS_ITS | Clinical Summary ---
Author Organization [facility] Address [address] [place] [address] Care Team Providers Care Patient Biller Name Role Phone Andrea Wu DO Primary Care Provider [phone] Allergies Active Allergy Reactions Criticality Noted Date Comments Amoxicillin Unknown 01/14/2023 Iodinated Contrast Media Other,Shortness of breath,Unknown High 12/08/2007 Iodine Unknown 01/14/2023 Penicillin G Rash Low 01/14/2023 Sulfa Antibiotics Unknown 12/08/2007 Wasp Venom 10/21/2018 Other Reaction(s): Anaphylaxis Medications albuterol HFA 90 mcg/act inhaler Inhale 2 puffs Active Fosamax 70 MG tablet 1 tablet 30 minutes before the first food, beverage or medicine of the day with plain water Orally for 30 day(s) Active amLODIPine (Norvasc) 5 MG tablet Refills(s) 0 02/21/20 Active atorvastatin (Lipitor) 10 MG tablet 1 (one) time each day at the same time Active RA Vitamin D-3 50 MCG (1999) capsule Take 50 mcg by mouth in the morning. 05/19/19 23 Active EpiPen 2-Giovani 0.3 MG/0.3ML injection syringe as directed Injection Active estradiol (Estrace) 0.1 MG/GM vaginal cream See Instructions, 42.5 gm, Refill(s) 0, apply pea sized amount to urethra 2x/wk, [facility], 158, cm, 02/20/23 8:48:00 EST, Height/Length Dosing, 68.5, kg, 02/20/23 8:48:00 EST, Weight Dosing 02/21/20 23 Active famotidine (Pepcid) 20 MG tablet Take by mouth 02/21/20 23 Active levothyroxine (Synthroid, Levoxyl) 88 MCG tablet 1 (one) time each day at the same time Active montelukast (Singulair) 10 MG tablet 1 (one) time each day at the same time Active azelastine (Astelin) 0.1 % nasal sprayIndications :Chronic rhinitis Administer 2 sprays into each nostril in the morning and 2 sprays before bedtime. Use in each nostril as directed. 90 mL 3 05/16/19 24 Active doxycycline (Adoxa) 100 MG tablet Take 100 mg by mouth in the morning and 100 mg before bedtime. Take with a full glass of water and do not lie down for at least 30 minutes after. Active fluticasone (Flonase) 50 MCG/ACT nasal sprayIndications :Chronic pansinusitis Administer 2 sprays into each nostril Daily Shake gently. Before first use, prime pump. After use, clean tip and replace cap. 16 g 07/02/19 24 Active metoclopramide (Reglan) 10 MG tablet Take 10 mg by mouth in the morning and 10 mg at noon and 10 mg in the evening and 10 mg before bedtime. 07/12/19 24 Active budesonide (Pulmicort) 0.5 MG/2ML nebulizer solutionIndicati ons:Chronic maxillary sinusitis Take 2 mL (0.5 mg) by nebulization in the morning. Rinse mouth with water after use to reduce aftertaste and incidence of candidiasis. Do not swallow.. 60 mL 11 08/20/19 24 Active pantoprazole (ProtoNix) 40 MG EC tabletIndication s:Gastroesophage al reflux disease without esophagitis Take 1 tablet (40 mg) by mouth in the morning and 1 tablet (40 mg) before bedtime. Do not crush, chew, or split.. 60 tablet 11 09/23/19 24 Active cetirizine (ZyrTEC) 10 MG tabletIndication s:Chronic pansinusitis Take 1 tablet (10 mg) by mouth Daily as needed for allergies 90 tablet 3 10/18/19 24 025 Active Fluticasone Propionate (Xhance) 93 MCG/ACT Exhaler SuspensionIndica tions:Chronic pansinusitis Administer 1 spray into affected nostril(s) in the morning and 1 spray before bedtime. 48 mL 3 12/30/19 24 Active metroNIDAZOLE (Metrogel) 1 % gelIndications:L ichen sclerosus et atrophicus Apply 1 application topically Daily Apply 1 application topically Daily 60 g 1 09/16/19 25 025 Active fluocinonide (Lidex) 0.05 % external solutionIndicati ons:Pruritus Apply to affected areas on the scalp, up to twice a day when flared, 30 day supply 60 mL 11 03/07/20 23 025 Discontinu ed(Therapy completed) clobetasol (Temovate) 0.05 % ointment Apply 1 application topically in the morning and 1 application before bedtime. 025 Discontinu ed(Reorder ) metroNIDAZOLE (Metrogel) 1 % gel Apply 1 application topically Daily 025 Discontinu ed(Reorder ) clobetasol (Temovate) 0.05 % ointmentIndicati ons:Lichen sclerosus et atrophicus Apply 1 application topically in the morning and 1 application before bedtime. Do all this for 14 days. 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 Graves' disease 06/27/2023 Chronic hoarseness 06/27/2023 Chronic maxillary sinusitis 06/27/2023 Chronic tension headache 06/27/2023 Equinus contracture of right ankle 06/27/2023 Fibrocystic breast changes 06/27/2023 Gastroesophageal reflux disease 06/27/2023 History of colonic polyps 06/27/2023 Hyperlipidemia 06/27/2023 LPRD (laryngopharyngeal reflux disease) 06/27/19 24 Migraine headache 06/27/2023 Osteopenia 06/27/2023 Peripheral eosinophilia 06/27/2023 Pharyngoesophageal dysphagia 06/27/2023 Urethral caruncle 06/27/2023 Stridor 06/27/2023 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[facility]) 06/27/2023 Spondylosis of lumbar spine 06/27/2023 Pulmonary function studies abnormal 06/27/2023 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 Keratoconjunctivitis sicca o f both eyes not specified as Sjogren's 01/14/2023 Blepharitis of upper and lower eyelids of both e yes 01/14/2023 Bilateral posterior capsular opacification 01/14 Pseudophakia 08/27/2022 Achilles tendinitis of right lower extremity Benign essential hypertension 03/18/2007 Ulcerative colitis 03/18/2007 Resolved Problems Problem Noted Date Diagnosed Date Resolved Date History of gastric ulcer 06/27/202301/2024 Lung field abnormal 06/27/2023 06/27/19 24 Recurrent UTI 06/27/2023 06/27/2023 Episodic tension-type headac he, not intractable 02/06/2016 06/27/2023 Encounters Date Type Department Care Team Description 09/15/2024 Refill [facility] [address] [place] [address] Lola Nielson LPN Lichen sclerosus et atrophicus from Last 3 Months Family History Medical History Relation Name Comments Diabetes Mother Hypertension Mother Lung cancer Mother Pancreatic cancer Mother Breast cancer Sister 1 Cancer Sister 2 Heart disease Sister 2 Melanoma Neg Hx Relation Name Status Comments Brother 7 Mother Sister 1 Sister 2 Son Alive 2 Social History Tobacco Use Types Packs/Day Years [...] PM EDT Sexual Orientation Not on file Last Filed Vital Signs Vital Sign Reading Time Taken Comments Blood Pressure 130/76 04/16/2024 10:59 AM EST Pulse - - Temperature - - Respiratory Rate - - Oxygen Saturation - - Inhaled Oxygen Concentration - - Weight 74.4 kg (164 lb) 04/30/2024 9:01 AM EST Height 157.5 cm (5' 2 ) 04/30/2024 9:01 AM EST Body Mass Index 30 04/30/2024 9:01 AM EST Plan of Treatment Upcoming Encounters Date Type Department Care Team (Late st Contact Info) Description 12/28/2024 9:20 AM EDT Office Visit [facility] [address] [place] [address] Ezio Vasquez MD [address] [place] [address] 02/02/2025 8:15 AM EST Office Visit [facility] [address] [place] [address] Uriah Kilpatrick, DO [address] [place] [address] 05/11/2025 9:45 AM EST Office Visit [facility] [address] [place] [address] Madison Burns, [address] [place] [address] Health Maintenance Due Date Last Done Comments CT Colonography 1952 FIT-DNA 1952 FIT 1950 FOBT 1950 Sigmoidoscopy 1950 Influenza Vaccine (#1) 2024 , 12/31/2022, 12/18/2021, Additional history exists Mammogram 02/02/2025 02/03/2024, 01/17, 02/02/2022, Additional history exists Colonoscopy 05/21/2033 05/22/2023, 08/17, 01/16/2015, Additional history exists Colorectal Cancer Screening 05/21/2033 Pneumococcal Vaccine: 65+ Years Completed 01/05/2019, 01/10/2017, 01/04/2016 Procedures Procedure Name Priority Date/Time Associated Diagnosis Comments MAMMOGRAM, BILATERAL, SCREEN:* Routine 02/03/2024 12:39 PM EST from Last 3 Months or Most Recently Relevant to Health Maintenance Results * MAMMOGRAM, BILATERAL, SCREEN:* (02/03/2024 12:39 PM EST) Anatomical Region Laterality Modality Radiographic Xiomy ging Madison Burns DO IMG XR PROCEDURES Final Res ult from Last 3 Months or Most Recently Relevant to Health Maintenance Insurance [employer] Care Teams Patient Biller Relationship Specialty Start Date End Date Andrea Wu DO PCP - General Internal Medicine 08/27/22
--- OUTSIDE RECORDS SUMMARY | 2024-10-02 09:12 | XMS_ITS | Encounter Summary ---
Author Organization [facility] Address [address] [place] [address] Care Team Providers Care Full Service Supervisor Name Role Phone Andrea Wu DO Primary Care Provider [phone] Encounter Details Date Type Department Care Team (Late st Contact Info) Description 07/23/2023 Clinisync Result Encounter [facility] Department Unsolicited Jeanette Luther MD [address] [facility] [address] [place], [place] [id number] Social History Tobacco Use Types Packs/Day Years [...] ALL [address] [place] [address] Ezio Vasquez MD [address] [place] [address] 02/02/2025 8:15 AM EST Office Visit [facility] [address] [place] [address] Uriah Kilpatrick, DO [address] [place] [address] 05/11/2025 9:45 AM EST Office Visit [facility] [address] [place] [address] Sanam Burnseen Bharati, DO [address] [place] [address] documented as of this encounter Procedures Procedure Name Priority Date/Time Associated Diagnosis Comments CT MAXILLOFACIAL W/O CONTRAST 07/23/2023 7:51 AM EDT documented in this encounter Results * CT MAXILLOFACIAL W/O CONTRAST (07/23/2023 7:51 AM EDT) Anatomical Region Laterality Modality Other 07/23/2023 7:51 AM EDT Narrative 07/25/2023 2:24 PM EDT Exam Date/Time: 07/23/2023 07:58 EDT Reason for [...] as low as reasonably achievable. Ordering Provider: Jeanette Luther FINAL REPORT Dictated: 07/25/2023 2:21 pm Bravo Hurst DO Signed (Electronic Signature): 07/25/2023 2:21 pm Signed by: Bravo Hurst DO Transcribed by: SAHIL Technologist: KE Procedure Note Radiology, Radiologist, MD - 07/25/2023 Exam Date/Time: 07/23/2023 07:58 EDT Reason for Exam: J32.4 Report IMPRESSION: PARANASAL SINUS DISEASE DETAILED. Exam: CT Maxillofacial w/o Contrast History: Sinusitis Technique: Multiple contiguous axial images were obtained of themaxillofacial bones without contrast. Multiplanar reformats were obtained. Comparison: None available Findings: Maxillary Sinuses: Mild mucosal thickening. Ethmoid sinuses: Moderate mucosal thickening. Sphenoid sinuses: Mild mucosal thickening. Sphenoid sinus pneumatizationthat extends posteriorly to the anterior margin of the sella, compatible with presellartype pneumatization. Frontal sinuses: Mild mucosal thickening. Right sphenoethmoidal recess: Opacified Left sphenoethmoidal recess: Opacified Right ostiomeatal complex: Clear. Right frontal recess: Opacified Left ostiomeatal complex: Clear. Left frontal recess: Opacified Nasal septum: Minimal leftward deviation with spurring. Other: Keros type 2 olfactory fossa. No Onodi or Louie cells. Mastoid air cells & middle ears: Clear. The middle ears areunremarkable. Soft tissues & Brain: No acute abnormality identified. Orbital contentsare within normal limits. Report All CT scans at this facility use dose modulation, iterativereconstruction, and/or weight based dosing when appropriate to reduce radiation dose to as low asreasonably achievable. Ordering Provider: Jeanette Luther FINAL REPORT Dictated: 07/25/2023 2:21 pm Bravo Hurst DO Signed (Electronic Signature): 07/25/2023 2:21 pm Signed by: Bravo Hurst DO Transcribed by: SAHIL Technologist: KE us Jeanette Luther MD [facility] Final Resul t documented in this encounter Visit Diagnoses Not on filedocumented in this encounter Care Teams Full Service Supervisor Relationship Specialty Start Date End Date Andrea Wu DO PCP - General Internal Medicine 08/27/22 documented as of this encounter
--- OUTSIDE RECORDS SUMMARY | 2024-10-02 09:12 | XMS_ITS | Encounter Summary ---
Author Organization [facility] Address [address] [place] [address] Care Team Providers Care Sand Slinger Operator Name Role Phone Andrea Wu Primary Care Provider [phone] Encounter Details Date Type Department Care Team (Late st Contact Info) Description 02/27/2023 Orders Only [facility] [address] [place] [address] Madison Burns DO [address] [place] [address] Social History Tobacco Use Types Packs/Day Years [...] ALL [address] [place] [address] Ezio Vasquez MD [address] [place] [address] 02/02/2025 8:15 AM EST Office Visit [facility] [address] [place] [address] Uriah Kilpatrick, DO [address] [place] [address] 05/11/2025 9:45 AM EST Office Visit [facility] [address] [place] [address] Madison Burns DO [address] [place] [address] documented as of this encounter Procedures Procedure Name Priority Date/Time Associated Diagnosis Comments MAMMOGRAM-DIAGNOSTI C* Routine 02/05/2023 1:08 PM EST DEXA BONE DENSITY Routine 02/05/2023 1:0 8 PM EST documented in this encounter Results * MAMMOGRAM-DIAGNOSTIC* (02/05/2023 1:08 PM EST) Anatomical Region Laterality Modality Radiographic Xiomy ging us Madison Burns DO IMG XR PROCEDURES Final Res ult * DEXA bone density (02/05/2023 1:08 PM EST) Anatomical Region Laterality Modality Body Radiographic Xiomy ging us Madison Burns DO IMG DXA PROCEDURES Final Re sult documented in this encounter Visit Diagnoses Not on filedocumented in this encounter Care Teams Sand Slinger Operator Relationship Specialty Start Date End Date Andrea Wu DO PCP - General Internal Medicine 08/27/22 documented as of this encounter
--- OUTSIDE RECORDS SUMMARY | 2024-10-02 09:12 | XMS_ITS | Encounter Summary ---
Author Organization [facility] Address [address] [place], [place] [address] Care Team Providers Care Cement Finisher Apprentice Name Role Phone Moustapha Haley MD Unavailable [phone] Chrissy Hector MD Unavailable [phone] Andrea uW DO Primary Care Provider [phone] Source Comments In the event this information is protected by the Federal Confidentiality of Alcohol and Drug AbusePatient Records regulations: The Federal rules restrict any use of the information to criminally investigate or prosecute any alcohol or drug abuse patient.[facility] Encounter Details Date Type Department Care Team (Late st Contact Info) Description 07/27/2024 Telephone Gastroenterology [address] [place] [address] Kasey Fallon MD [facility] [address] [place] [id number] Social History Tobacco Use Types Packs/Day Years Used Date Smoking Tobacco: Never Smokeless Tobacco: Never Alcohol Use Standard Drinks/Week Comments No 0 (1 standard drink = 0.6 oz pur e alcohol) Area Deprivation Index Answer Date Jaylon rded National Score (1-100), lower number is lower ri sk 59 12/27/2023 State Score (1-10), lower number is lower risk 4 12/27/2023 Data from: https://www.neighborhoodatlas.medicine.[facility].edu/. 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 [facility] [place] [facility] Chloe documented in this encounter Plan of Treatment Not on file documented as of this encounter Visit Diagnoses Not on filedocumented in this encounter Care Teams Cement Finisher Apprentice Relationship Specialty Start Date End Date Andrea Wu DO [address] [place] [address] PCP - General Internal Medicine 12/27/23 Moustapha Haley MD [address] [place] [address] [address] [place] [address] Internal Medicine 12/27/23 Chrissy Hector MD [address] [place] [address] Hematology/Oncology 12/27/23 documented as of this encounter
--- OUTSIDE RECORDS SUMMARY | 2024-10-02 09:12 | XMS_ITS | Encounter Summary ---
Author Organization [facility] Address [address] [place], [place] [id number] Care Team Providers Care Practical Nursing Teacher Name Role Phone Moustapha Haley MD Unavailable [phone] Chrissy Hector MD Unavailable [phone] Andrea Wu DO Primary Care Provider [phone] Source Comments In the event this information is protected by the Federal Confidentiality of Alcohol and Drug AbusePatient Records regulations: The Federal rules restrict any use of the information to criminally investigate or prosecute any alcohol or drug abuse patient.[facility] Encounter Details Date Type Department Care Team (Late st Contact Info) Description 07/20/2024 Results Follow-Up Gastroenterology [address] [place] [address] Kasey Fallon MD [facility] [address] [place] [id number] Social History Tobacco Use Types Packs/Day Years Used Date Smoking Tobacco: Never Smokeless Tobacco: Never Alcohol Use Standard Drinks/Week Comments No 0 (1 standard drink = 0.6 oz pur e alcohol) Area Deprivation Index Answer Date Jaylon rded National Score (1-100), lower number is lower ri sk 59 12/27/2023 State Score (1-10), lower number is lower risk 4 12/27/2023 Data from: https://www.neighborhoodatlas.medicine.[facility].edu/. 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
--- OUTSIDE RECORDS SUMMARY | 2024-10-02 09:12 | XMS_ITS | Encounter Summary ---
Author Organization [facility] Address [address] [place] [address] Care Team Providers Care Associate Director Name Role Phone Moustapha Haley MD Unavailable Chrissy Hector MD Unavailable [phone] Andrea Wu DO Primary Care Provider [phone] Source Comments In the event this information is protected by the Federal Confidentiality of Alcohol and Drug AbusePatient Records regulations: The Federal rules restrict any use of the information to criminally investigate or prosecute any alcohol or drug abuse patient.[facility] Reason for Referral * Diagnostic Procedure Only (Routine) - Closed Specialty Diagnoses / Procedures Referred By Chinmay stark Referred To Contact XR IMAGING Diagnoses Other partial intestinal obstruction (HCC) Procedures XR SMALL BOWEL SERIES RADIOLOGIC EXAM SMALL INT SINGLE CONTRAST STUDY Kasey Fallon MD [address] [address] Phone: tel: fax: [place] [id number] Referral ID Status Reason Start Date Expiration Date V isits Requested Visits Authorized [id number] Closed Auto-Generate d Referral 11/22/2023 12/21/2024 1 1 Encounter Details Date Type Department Care Team (Late st Contact Info) Description 11/22/2023 Patient Update Gastroenterology [address] [address] Kasey Fallon MD [facility] [address] [address] Social History Tobacco Use Types Packs/Day Years Used Date Smoking Tobacco: Never Alcohol Use Standard Drinks/Week Comments No 0 (1 standard drink = 0.6 oz pur e alcohol) Comments Unknown Sex and Gender Information Value Date Recorded Sex Assigned at Not on file Legal Sex Female 8:12 AM EST Gender Identity Not on file Sexual Orientation Not on file 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 No dilated small bowel. No visualized stricture. Digital Solution Architect: ANGELA Transcribe Date/Time: Dec 24 2023 3:37P Dictated by : HAYDEN REEVES MD This examination was interpreted and the report reviewed and electronically signed by: HAYDEN REEVES MD on Dec 24 2023 3:40PM EST Narrative 12/24/2023 3:42 PM EDT * * *Final Report* * * DATE OF EXAM: Dec 24 2023 2:18PM [id number] - XR SMALL BOWEL SERIES / PROCEDURE REASON: Other partial intestinal obstruction (HCC) * * * * Physician Interpretation * * * * SMALL BOWEL SERIES CLINICAL INFORMATION: Small bowel stricture. TECHNIQUE: Small bowel series with overhead and fluoroscopic spot films. Contrast: ORAL: 855 ml of EZPAQUE RESULT: Business Services Sales Representative radiograph shows no dilated bowel loops. Right upper quadrant surgical clips. Contrast was ingested orally. By 60 minutes, contrast fills normal caliber and fold pattern jejunum and proximal and mid ileum. Subsequently there was very slow transit. Study was terminated at 240 minutes with small amount of contrast in colon. No small bowel dilation or focal area of narrowing identified. Procedure Note Provider, [facility] [place] - 12/24/2023 * * *Final Report* * [...] Contrast: ORAL: 855 ml of EZPAQUE RESULT: Business Services Sales Representative radiograph shows no dilated bowel loops. Right [...] No dilated small bowel. No visualized stricture. Digital Solution Architect: PSCB Transcribe Date/Time: Dec 24 2023 3:37P Dictated by : HAYDEN REEVES MD This examination was interpreted and the report reviewed and electronically signed by: HAYDEN REEVES MD on Dec 24 2023 3:40PM EST Kasey Fallon MD [facility] Final Result documented in this encounter Visit Diagnoses Diagnosis Other partial intestinal obstruction (HCC)- Primary Other partial intestinal obstruction (HCC) documented in this encounter Care Teams Associate Director Relationship Specialty Start Date End Date Andrea Wu DO [address] [place] [address] PCP - General Internal Medicine 12/27/23 Moustapha Hlaey MD [address] [place] [address] [address] [place] [address] Internal Medicine 12/27/23 Chrissy Hector MD [address] [place] [address] Hematology/Oncology 12/27/23 documented as of this encounter
--- OUTSIDE RECORDS SUMMARY | 2024-10-02 09:12 | XMS_ITS | Clinical Summary ---
Author Organization [facility] Address [address] [place] [address] Care Team Providers Care Sales And In Home Delivery Specialist Name Role Phone Unavailable Primary Care Provider Unavailabl e Social History Tobacco Use Types Packs/Day Years Used Date Smoking Tobacco: Never Assessed [place] Safety & Environment Answer Date Rec orded Fear of Current or Ex-Partner Not on file Emotionally Abused Not on file 08/26/2023 Physically Abused Not on file 08/26/2023 Sexually Abused Not on file 08/26/2023 Physically or Sexually Abused Not on file Comments Unknown Sex and Gender Information Value Date Recorded Sex Assigned at Not on file Legal Sex Female 5:33 PM EDT Gender Identity Not on file Sexual Orientation Not on file Plan of Treatment Not on file
--- OUTSIDE RECORDS SUMMARY | 2024-10-02 09:12 | XMS_ITS | Patient Health Record ---
Author Organization [facility] [place] Address [address] [place] [address] Care Team Providers Care Pediatrician/Medical Doctor Name Role Phone Bryce Andrea BRUCE Primary Care Provider Unavaila Chrissy Bates Unavailable [phone] Allergies Allergen (clinical drug ingredient) Drug/Non Drug Allergy documented on EMR Reaction Allergy Type Onset Date Status amoxicillin Amoxicillin rash Drug Allergy Act saleem Bee Sting anaphylaxis Allergy Active Iodine anaphylaxis Drug Allergy Activ e Substance with sulfonamide structure and antibacterial mechanism of action (substance) Sulfa Antibiotics rash Drug Allergy Active Results Component Value Reference Range Notes IRON AND TIBC (Not yet revie wed by provider) Interpretation: Performing Lab: Notes/Report: [facility] , Iron 87.0 50.0-170.0 ug/dL Total Iron Binding Capacity 382.0 250.0-450.0 u g/dL Percent Iron Saturation 22.8 Performing Lab: see note ML - [facility] LB CBC AUTO DIFF (Not yet revie wed by provider) Interpretation: Performing Lab: Notes/Report: [facility] , White Blood Count 8.5 4.0-11.0 10 3/uL Red Blood Count 4.35 4.20-5.40 10 6/uL Hemoglobin 13.2 12.0-16.0 g/dL Hematocrit 40.5 36.0-48.0 % Mean Corpuscular Volume 93.1 81.0-99.0 fL Mean Corpuscular Hemoglobin 30.3 26.7-34.0 pg Mean Corpuscular HGB Conc 32.6 29.9-35.2 g/dL Red Cell Distribution Width 13.5 11.0-15.0 % Platelet Count 375 150-450 10 3/uL Mean Platelet Volume 9.9 9.5-13.5 fL Neutrophils Percent Auto 68.5 43.0-75.0 % Lymphocytes Percent Auto 20.4 20.5-60.0 % Monocytes Percent Auto 7.5 1.7-12.0 % Eosinophils Percent Auto 2.7 0.9-7.0 % Basophils Percent Auto 0.4 0.2-2.0 % Immature Granulocytes Pct Auto 0.5 0.0-0.5 % Neutrophils Absolute Auto 5.8 1.4-6.5 10 3/uL Lymphocytes Absolute Auto 1.7 1.2-3.8 10 3/uL Monocytes Absolute Auto 0.6 0.3-0.8 10 3/uL Eosinophils Absolute Auto 0.2 0.0-0.7 10 3/uL Basophils Absolute Auto 0.0 0.0-0.1 10 3/uL Immature Granulocytes Abs Auto 0.04 0.00-0.03 10 3/uL Performing Lab: see note ML - [facility] LB FERRITIN (Not yet reviewed b y provider) Interpretation: Performing Lab: Notes/Report: [facility] , Ferritin 25.0 8.0-252.0 ng/mL Performing Lab: see note ML - [facility] LB IRON AND TIBC (Not yet revie wed by provider) Interpretation: Performing Lab: Notes/Report: [facility] , Iron 51.0 50.0-170.0 ug/dL Total Iron Binding Capacity 392.0 250.0-450.0 u g/dL Percent Iron Saturation 13.0 Performing Lab: see note ML - [facility] LB PROF 14(COMP METB) (Not yet reviewed by provider) Interpretation: Performing Lab: Notes/Report: [facility] , Sodium 143 136-145 mmol/L Potassium 4.1 3.5-5.1 mmol/L Chloride 105 98-107 mmol/L Carbon Dioxide 30.2 21.0-32.0 mmol/L Anion Gap 11.9 Glucose 86 74-106 mg/dL Blood Urea Nitrogen 15.0 7.0-18.0 mg/dL Creatinine 0.85 0.55-1.02 mg/dL Estimated GFR ( Brittaney >60 >=60 mL/mi n/1.73m 2 Estimated GFR (Non- Ashley >60 >=60 mL/mi n/1.73m 2 BUN Creatinine Ratio 17.6 Calcium 9.0 8.5-10.1 mg/dL Bilirubin Total 0.5 0.2-1.0 mg/dL Aspartate Amino Transferase 19 15-37 U/L Alanine Aminotransferase 22 14-59 U/L Alkaline Phosphatase 96 46-116 U/L Total Protein 7.0 6.4-8.2 g/dL Albumin Level 3.8 3.4-5.0 g/dL Globulin 3.2 Albumin Globulin Ratio 1.2 Performing Lab: see note - [facility] LB VITAMIN D 25 [place] (Not yet rev iewed by provider) Interpretation: Performing Lab: Notes/Report: [facility] , Vitamin D 36.4 <20 ng/mL Vit D deficient 20-<30 ng/mL Vit D insufficient 30-100 ng/mL Vit D sufficient >100 ng/mL Potential Toxicity Performing Lab: see note - [facility] LB Vitamin B12 (Not yet reviewe d by provider) Interpretation: Performing Lab: Notes/Report: [facility] , Vitamin B12 [phone] pg/mL Performed at: - [facility] [address] [id number] Batch Tank Controller: Bj Hair PhD, Phone: [phone] Performing Lab: see note - [facility] LB IRON AND TIBC (Not yet revie wed by provider) Interpretation: Performing Lab: Notes/Report: [facility] , Iron 124.0 50.0-170.0 ug/dL Total Iron Binding Capacity 263.0 250.0-450.0 u g/dL Percent Iron Saturation 47.1 Performing Lab: see note - [facility] LB PROF CHEM 8 (BAS METB) (Not yet reviewed by provider) Interpretation: Performing Lab: Notes/Report: [facility] , Sodium 146 136-145 mmol/L Potassium 3.4 3.5-5.1 mmol/L Chloride 107 98-107 mmol/L Carbon Dioxide 27.1 21.0-32.0 mmol/L Anion Gap 15.3 Glucose 99 74-106 mg/dL Blood Urea Nitrogen 16.0 7.0-18.0 mg/dL Creatinine 0.95 0.55-1.02 mg/dL Estimated GFR ( Brittaney >60 >=60 mL/mi n/1.73m 2 Estimated GFR (Non- Ashley 58 >=60 mL/mi n/1.73m 2 BUN Creatinine Ratio 16.8 Calcium 9.0 8.5-10.1 mg/dL Performing Lab: see note ML - [facility] LB Vitamin B12 (Not yet reviewe d by provider) Interpretation: Performing Lab: Notes/Report: [facility] , Vitamin B12 [phone] pg/mL Performed at: - [facility] [address] [id number] Batch Tank Controller: Bj Hair PhD, Phone: [phone] Performing Lab: see note - [facility] LB VITAMIN D 25 [place] (Not yet rev iewed by provider) Interpretation: Performing Lab: Notes/Report: [facility] , Vitamin D 36.3 <20 ng/mL Vit D deficient 20-<30 ng/mL Vit D insufficient 30-100 ng/mL Vit D sufficient >100 ng/mL Potential Toxicity Performing Lab: see note ML - [facility] LB FERRITIN (Not yet reviewed b y provider) Interpretation: Performing Lab: Notes/Report: [facility] , Ferritin 553.0 8.0-252.0 ng/mL Performing Lab: see note - [facility] LB CBC AUTO DIFF (Not yet revie wed by provider) Interpretation: Performing Lab: Notes/Report: [facility] , White Blood Count 6.7 4.0-11.0 10 3/uL Red Blood Count 4.09 4.20-5.40 10 6/uL Hemoglobin 12.9 12.0-16.0 g/dL Hematocrit 38.0 36.0-48.0 % Mean Corpuscular Volume 92.9 81.0-99.0 fL Mean Corpuscular Hemoglobin 31.5 26.7-34.0 pg Mean Corpuscular HGB Conc 33.9 29.9-35.2 g/dL Red Cell Distribution Width 14.7 11.0-15.0 % Platelet Count 329 150-450 10 3/uL Mean Platelet Volume 9.3 9.5-13.5 fL Neutrophils Percent Auto 53.0 43.0-75.0 % Lymphocytes Percent Auto 33.1 20.5-60.0 % Monocytes Percent Auto 8.9 1.7-12.0 % Eosinophils Percent Auto 4.3 0.9-7.0 % Basophils Percent Auto 0.4 0.2-2.0 % Immature Granulocytes Pct Auto 0.3 0.0-0.5 % Neutrophils Absolute Auto 3.6 1.4-6.5 10 3/uL Lymphocytes Absolute Auto 2.2 1.2-3.8 10 3/uL Monocytes Absolute Auto 0.6 0.3-0.8 10 3/uL Eosinophils Absolute Auto 0.3 0.0-0.7 10 3/uL Basophils Absolute Auto 0.0 0.0-0.1 10 3/uL Immature Granulocytes Abs Auto 0.02 0.00-0.03 10 3/uL Performing Lab: see note ML - [facility] LB PROF 14(COMP METB) (Not yet reviewed by provider) Interpretation: Performing Lab: Notes/Report: [facility] , Sodium 146 136-145 mmol/L Potassium 3.5 3.5-5.1 mmol/L Chloride 108 98-107 mmol/L Carbon Dioxide 29.2 21.0-32.0 mmol/L Anion Gap 12.3 Glucose 86 74-106 mg/dL Blood Urea Nitrogen 16.0 7.0-18.0 mg/dL Creatinine 1.00 0.55-1.02 mg/dL Estimated GFR ( Brittaney >60 >=60 mL/mi n/1.73m 2 Estimated GFR (Non- Ashley 55 >=60 mL/mi n/1.73m 2 BUN Creatinine Ratio 16.0 Calcium 9.0 8.5-10.1 mg/dL Bilirubin Total 1.0 0.2-1.0 mg/dL Aspartate Amino Transferase 27 15-37 U/L Alanine Aminotransferase 30 14-59 U/L Alkaline Phosphatase 81 46-116 U/L Total Protein 6.6 6.4-8.2 g/dL Albumin Level 3.8 3.4-5.0 g/dL Globulin 2.8 Albumin Globulin Ratio 1.4 Performing Lab: see note ML - [facility] LB FERRITIN (Not yet reviewed b y provider) Interpretation: Performing Lab: Notes/Report: [facility] , Ferritin 35.0 8.0-252.0 ng/mL Performing Lab: see note ML - [facility] LB CBC AUTO DIFF (Not yet revie wed by provider) Interpretation: Performing Lab: Notes/Report: [facility] , White Blood Count 5.8 4.0-11.0 10 3/uL Red Blood Count 4.22 4.20-5.40 10 6/uL Hemoglobin 13.1 12.0-16.0 g/dL Hematocrit 39.0 36.0-48.0 % Mean Corpuscular Volume 92.4 81.0-99.0 fL Mean Corpuscular Hemoglobin 31.0 26.7-34.0 pg Mean Corpuscular HGB Conc 33.6 29.9-35.2 g/dL Red Cell Distribution Width 13.8 11.0-15.0 % Platelet Count 349 150-450 10 3/uL Mean Platelet Volume 9.7 9.5-13.5 fL Neutrophils Percent Auto 57.0 43.0-75.0 % Lymphocytes Percent Auto 26.4 20.5-60.0 % Monocytes Percent Auto 9.7 1.7-12.0 % Eosinophils Percent Auto 5.9 0.9-7.0 % Basophils Percent Auto 0.3 0.2-2.0 % Immature Granulocytes Pct Auto 0.7 0.0-0.5 % Neutrophils Absolute Auto 3.3 1.4-6.5 10 3/uL Lymphocytes Absolute Auto 1.5 1.2-3.8 10 3/uL Monocytes Absolute Auto 0.6 0.3-0.8 10 3/uL Eosinophils Absolute Auto 0.3 0.0-0.7 10 3/uL Basophils Absolute Auto 0.0 0.0-0.1 10 3/uL Immature Granulocytes Abs Auto 0.04 0.00-0.03 10 3/uL Performing Lab: see note ML - [facility] LB PROF 14(COMP METB) (Not yet reviewed by provider) Interpretation: Performing Lab: Notes/Report: [facility] , Sodium 143 136-145 mmol/L Potassium 3.6 3.5-5.1 mmol/L Chloride 104 98-107 mmol/L Carbon Dioxide 29.7 21.0-32.0 mmol/L Anion Gap 12.9 Glucose 103 74-106 mg/dL Blood Urea Nitrogen 16.0 7.0-18.0 mg/dL Creatinine 0.85 0.55-1.02 mg/dL Estimated GFR ( Brittaney >60 >=60 Estimated GFR (Non- Ashley >60 >=60 BUN Creatinine Ratio 18.8 Calcium 9.0 8.5-10.1 mg/dL Bilirubin Total 0.5 0.2-1.0 mg/dL Aspartate Amino Transferase 21 15-37 U/L Alanine Aminotransferase 26 14-59 U/L Alkaline Phosphatase 80 46-116 U/L Total Protein 6.6 6.4-8.2 g/dL Albumin Level 3.7 3.4-5.0 g/dL Globulin 2.9 Albumin Globulin Ratio 1.3 Performing Lab: see note ML - [facility] LB IRON AND TIBC (Not yet revie wed by provider) Interpretation: Performing Lab: Notes/Report: [facility] , Iron 71.0 50.0-170.0 ug/dL Total Iron Binding Capacity 365.0 250.0-450.0 u g/dL Percent Iron Saturation 19.5 Performing Lab: see note ML - [facility] LB FERRITIN (Not yet reviewed b y provider) Interpretation: Performing Lab: Notes/Report: [facility] , Ferritin 30.0 8.0-252.0 ng/mL Performing Lab: see note ML - [facility] LB CBC AUTO DIFF (Not yet revie wed by provider) Interpretation: Performing Lab: Notes/Report: [facility] , White Blood Count 7.1 4.0-11.0 10 3/uL Red Blood Count 4.24 4.20-5.40 10 6/uL Hemoglobin 12.8 12.0-16.0 g/dL Hematocrit 38.9 36.0-48.0 % Mean Corpuscular Volume 91.7 81.0-99.0 fL Mean Corpuscular Hemoglobin 30.2 26.7-34.0 pg Mean Corpuscular HGB Conc 32.9 29.9-35.2 g/dL Red Cell Distribution Width 13.5 11.0-15.0 % Platelet Count 350 150-450 10 3/uL Mean Platelet Volume 10.1 9.5-13.5 fL Neutrophils Percent Auto 53.7 43.0-75.0 % Lymphocytes Percent Auto 28.3 20.5-60.0 % Monocytes Percent Auto 8.3 1.7-12.0 % Eosinophils Percent Auto 9.0 0.9-7.0 % Basophils Percent Auto 0.4 0.2-2.0 % Immature Granulocytes Pct Auto 0.3 0.0-0.5 % Neutrophils Absolute Auto 3.8 1.4-6.5 10 3/uL Lymphocytes Absolute Auto 2.0 1.2-3.8 10 3/uL Monocytes Absolute Auto 0.6 0.3-0.8 10 3/uL Eosinophils Absolute Auto 0.6 0.0-0.7 10 3/uL Basophils Absolute Auto 0.0 0.0-0.1 10 3/uL Immature Granulocytes Abs Auto 0.02 0.00-0.03 10 3/uL Performing Lab: see note ML - [facility] LB Reason For Referral No Information Medications Medication SIG (Take, Route, Frequency, Duration) Notes Start Date End Date Status Atorvastatin Calcium 10 MG 1 tablet Oral ly Once a day for 30 days Active Aspirin 81 MG 1 tablet Orally Once a day Active Levothyroxine Sodium 100 MCG 1 tablet in the morning on an empty stomach Orally Once a day for 30 day(s) Active Astepro 205.5 MCG/SPRAY 2 sprays in each nostril Nasally Once a day Active Montelukast Sodium 10 MG 1 tablet Orally Once a day for 30 day(s) Active Albuterol Sulfate HFA 108 (90 Base) MCG/ACT Inhalation for 90 Days Active guaiFENesin-Codeine 100-10 MG/5ML take 10 MILLILITERS (2 TEASPOONFULS) by mouth every 6 hours if needed for cough Oral for 7 Days Active amLODIPine Besylate 5 MG Oral for 90 Days Active IFerex 150 150 MG TAKE 1 CAPSULE BY [facility] EVERY OTHER DAY Oral for 30 Days Active Fluticasone Propionate (Inhal) 50 MCG/ACT 1 puff Inhalation Twice a day Active Fosamax 70 MG 1 tablet 30 minutes before the first food, beverage or medicine of the day with plain water Orally for 30 day(s) Active EpiPen 2-Giovani 0.3 MG/0.3ML as directed Injection Active Famotidine 20 MG 1 tablet at bedtime as needed Orally Once a day for 30 day(s) Active Claritin-D 12 Hour 5-120 MG 1 tablet as needed Orally every 12 hrs Active Trelegy Ellipta 100-62.5-25 MCG/ACT Inhalation for 90 Days Activ e Clobetasol Propionate 0.05 % 1 application Externally Twice a day for 10 day(s) Active LORazepam 0.5 MG Oral for 30 Days Unknown Pantoprazole Sodium 40 MG 1 tablet Orall y Once a day for 30 day(s) Active Immunizations Vaccine Route Administration Date Status Comme nts Arexvy Unknown 12/31/2022 Administered Flu, Fluad (11669) 65 yrs+, single-dose syringe (6753-4154) Unknown 12/31/2022 Administered Pneumococcal (Pneumovax 23) Unknown 01/05/2019 Administ ered Spikevax Moderna Syringe Pre -Filled 50 mcg/0.5 mL Unknown 02/14/2023 Administered Social History Tobacco Use: Social History Observation Description Date Details (start date - stop date) Never Smoker NA - NA Tobacco Use/Smoking Question Answer Notes Patient is a nonsmoker Section Notes: Never Smoked Never Smoked Never Smoked Never Smoked Never Smoked Never Smoked Never Smoked Problems Problem Type SNOMED Code ICD Code Onset Dates Problem Status W/U Status Risk Notes Problem 48534959 Essential (primary) hypertension (I10) Active confirmed Problem 99034699 Age-related osteoporosis without current pathological fracture (M81.0) Active confirmed Problem 0260838 Primary insomnia (F51.01) Active confirmed Problem 022997749 Chronic tension-type headache, not intractable (G44.229) Active confirmed Problem 351030889 Mild persistent asthma, uncomplicated (J45.30) Active confirmed Problem 39358205 Seborrheic dermatitis, unspecified (L21.9) Active confirmed Problem 8819390975283394 Other instability, right ankle (M25.371) Active confirmed Problem 106984623 Spondylosis without myelopathy or radiculopathy, cervical region (M47.812) Active confirmed Problem 698317487 Spondylosis without myelopathy or radiculopathy, lumbar region (M47.816) Active confirmed Problem 401117773006859 Prepatellar bursitis, left knee (M70.42) Active confirmed Problem 138001592346655 Peroneal tendinitis, right leg (M76.71) Active confirmed Problem Stridor (81186333) Stridor (R06.1) Active confi rmed Problem 25597286492453752 Contusion of left knee, initial encounter (S80.02XA) Active confirmed Problem 820714542 Displaced fracture of fifth metatarsal bone, right foot, subsequent encounter for fracture with routine healing (S92.351D) Active confirmed Problem 53116354558396985 Sprain of othe r ligament of right ankle, sequela (S93.491S) Active confirmed Problem 565803356 Presence of functional implant, unspecified (Z96.9) Active confirmed Problem Gastroesophageal reflux disease (942910322) GERD (gastroesophagea l reflux disease) (K21.9) Active confirmed Problem Lung field abnormal (748441002) Abnormal CT scan of lung (R91.8) Active confirmed Problem Pain in limb (09926215) Foot pain, right (M79.671) Active confirmed Problem 241666335 Overweight (BMI 25.0-29.9) (E66.3) Active confirmed Problem Increased immunoglobulin (026102060) Elevated IgE level (R76.8) Active confirmed Problem 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) Active confirmed Problem Choking (714718851) Choking (T17.308A) Active confirmed Problem 785944667 Strain of left shoulder, initial encounter (S46.912A) Active confirmed Problem Chronic maxillary sinusitis (48279922) Chronic sinusitis of both maxillary sinuses (J32.0) Active confirmed Problem 56467894 Seasonal allergic rhinitis due to pollen (J30.1) Active confirmed Problem Abnormal diffusion capacity determined by pulmonary function test (R94.2) Active confirmed Problem Pure hypercholesterolemia (331391916) Hyperlipidemia type II (E78.01) Active confirmed Problem 59689989 Strain of rhomboid muscle, initial encounter (S29.012A) Active confirmed Problem 528348103 Osteopenia of left hip (M85.852) Active confirmed Problem 003623545 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199A) Active confirmed Problem 592482353 Muscle strain of right knee, initial encounter (S86.911A) Active confirmed Encounters Encounter Location Date Provider Diagnosis [facility] [place] [address] 11/26/2023 [facility] [address] [place] [address] 02/25/2024 [facility] [address] [place] [address] 05/05/2024 [facility] [place] [address] 07/21/2024 [facility] Plan Of Treatment Pending Test Test Name Order Date CBC AUTO DIFF 06/27/2023 CBC AUTO DIFF 11/22/2023 CBC AUTO DIFF 02/18/2024 CBC AUTO DIFF 04/28/2024 CBC AUTO DIFF 07/15/2024 FERRITIN 07/15/2024 FERRITIN 04/28/2024 FERRITIN 11/22/2023 FERRITIN 02/18/2024 FERRITIN 06/27/2023 IMMUNOGLOBULIN E, TOTAL 07/02/2023 IRON AND TIBC 11/22/2023 IRON AND TIBC 06/27/2023 IRON AND TIBC 02/18/2024 IRON AND TIBC 04/28/2024 IRON AND TIBC 07/15/2024 PROF 14(COMP METB) 02/18/2024 PROF 14(COMP METB) 04/28/2024 PROF 14(COMP METB) 11/22/2023 PROF CHEM 8 (BAS METB) 07/15/2024 VITAMIN D 25 [place] 07/15/2024 VITAMIN D 25 [place] 04/28/2024 AGUSTIN, PE and FLC, Serum 07/02/2023 Vitamin B12 04/28/2024 Vitamin B12 07/15/2024 Next Appt Details Provider Name:Chrissy Krunal , 01/26/2025 08:30:00 AM, [address] [place], [address], Insurance Providers Payer Name Payer Address Payer Phone Subscriber Number Group Number Insured Name Patient Relationship to Insured Coverage Start Date Coverage End Date [place] [address] [place] [address] [id number] Munira Chester Self - patient is the insured 8 MMO [address] [place], [place] [id number] Munira Chester Self - patient is the insured 8 Medical (General) History Medical History History ICD Code Displaced fracture of fifth metatarsal bone, right foot, subsequent encounter for fracture with routine healing S92.351D Age-related osteoporosis without current pathological fracture M81.0 Closed fracture of base of f ifth metatarsal bone at metaphyseal-diaphyseal junction, unspecified laterality, initial encounter S99.199A Muscle strain of right knee, initial enc ounter S86.911A Hyperlipidemia type II E78.01 Autoimmune hypothyroidism E06.3 Mild persistent asthma, uncomplicated J4 5.30 Bee sting allergy Z91.030 Primary insomnia F51.01 Seasonal allergic rhinitis due to pollen J30.1 Seborrheic dermatitis, unspecified L21.9 Gastro-esophageal reflux disease with es ophagitis, without bleeding K21.00 Overweight (BMI 25.0-29.9) E66.3 Essential (primary) hypertension I10 Spondylosis without myelopathy or radicu lopathy, cervical region M47.812 Osteopenia of left hip M85.852 History of gastric ulcer Z87.11 Spondylosis without myelopathy or radicu lopathy, lumbar region M47.816 Peripheral eosinophilia D72.19 Elevated IgE level R76.8 Chronic sinusitis of both maxillary sinu ses J32.0 Atopic dermatitis L20.9 GERD (gastroesophageal reflux disease) K 21.[address] Ab[address] CT scan of lung R91.8 Granulomatous lung disease J84.10 Abnormal diffusion capacity determined b y pulmonary function test R94.2 Stridor R06.1 Surgical History Surgery Date(Month/Year) right wrist surgery dilatation and curettage section ORIF right foot Granado Fracture 04/05/2022 RT Shoulder Arthroscopy 10/2018 Lap Cholecystectomy 06/2010 Colonoscopy 01/2015 Colonoscopy 01/2010 Colonoscopy 09/23/2019 EGD 01/2015 EGD 08/2011 EGD 05/2011 EGD 09/23/2019 Right Foot Surgery Granado fracture ORIF 0 04/05/2022
--- OUTSIDE RECORDS SUMMARY | 2024-10-02 09:12 | XMS_ITS | Encounter Summary ---
Author Organization [facility] Address [address] [place] [address] Care Team Providers Care Steam Press Operator Name Role Phone Andrea Wu Primary Care Provider [phone] Encounter Details Date Type Department Care Team (Late st Contact Info) Description 01/30/2023 Orders Only [facility] [address] [place] [address] Madison Burns DO [address] [place] [address] Social History Tobacco Use Types [...] ALL [address] [place] [address] Ezio Vasquez MD [address] [place] [address] 02/02/2025 8:15 AM EST Office Visit [facility] [address] [place] [address] Uriah Kilpatrick DO [address] [place] [address] 05/11/2025 9:45 AM EST Office Visit [facility] [address] [place] [address] Madison Burns DO [address] [place] [address] documented as of this encounter Procedures Procedure Name Priority Date/Time Associated Diagnosis Comments SCANNED LABS Routine 01/30/2023 1:10 PM EST documented in this encounter Results * SCANNED LABS (01/30/2023 1:10 PM EST) Madison Burns DO LAB CHG PERFORMABLES Final Result documented in this encounter Visit Diagnoses Not on filedocumented in this encounter Care Teams Steam Press Operator Relationship Specialty Start Date End Date Andrea Wu DO PCP - General Internal Medicine 08/27/22 documented as of this encounter
--- NOTE | 2024-10-02 09:28 | ED.GENADUL1 ---
HPI HPI - General Adult General Chief complaint: Nausea/Vomiting/Diarrhea Stated complaint: diarrhea Time Seen by Provider: 10/02/24 09:04 Source: patient Mode of arrival: walk-in Limitations: no limitations History of Present Illness HPI narrative: 74-year-old female presents for diarrhea. She has had it multiple times per day for the last 4 days. No blood in it. No recent hospitalizations or antibiotic use. No fever or vomiting. She will have intermittent abdominal pain when she has cramps from gas. She does not have any pain now. She has been around a baby has been ill and she has not been vomiting. Related Data Home Medications ?Medication ?Instructions ?Recorded ?Confirmed albuterol sulfate 90 mcg/actuation inhalation 12/23/22 aerosol inhaler atorvastatin 10 mg tablet mg 12/23/22 benazepril 10 mg tablet mg 12/23/22 famotidine 20 mg tablet mg 12/23/22 fluticasone furoate 200 inhalation 12/23/22 mcg-vilanterol 25 mcg/dose inhalation powder (Breo Ellipta) levothyroxine 100 mcg tablet mcg 12/23/22 loratadine 5 mg-pseudoephedrine ER tab PO 12/23/22 120 mg tablet,extended release,12hr (Claritin-D 12 Hour) pantoprazole 40 mg tablet,delayed mg PO 12/23/22 release Allergies Allergy/AdvReac Type Severity Reaction Status Date / Time amoxicillin Allergy Hives Verified 10/02/24 09:08 Sulfa (Sulfonamide Allergy Hives Verified 10/02/24 09:08 Antibiotics) IVP Allergy Hives Uncoded 10/02/24 09:08 Opioid HPI Opioid Management Most Recent Opioid Data: Last Pain Scale 5 Today, 09:08 Review of Systems ROS Narrative A ten point review of systems is negative except as noted above. PFSH PFSH Social History Smoking status: Never smoker Little interest or pleasure in doing things: not at all Feeling down, depressed, or hopeless: not at all Exam Narrative Exam Narrative: Nurses note and vital signs reviewed and patient is not hypoxic. General: The patient appears well and in no apparent distress. Patient is resting comfortably on cart. Skin: Warm, dry, no pallor noted. There is no rash noted. Head: Normocephalic, atraumatic Eye: Normal conjunctiva, no drainage Ears, Nose, Mouth, and Throat: oral mucosa is moist. Nares patent. Cardiovascular: Regular Rate and Rhythm Respiratory: Patient is in no distress, no accessory muscle use, lungs are clear to auscultation, no wheezing, rales or rhonchi Back: non-tender GI: Soft and nontender nondistended Musculoskeletal: The patient has no evidence of calf tenderness, no pitting edema, symmetrical pulses noted bilaterally Neurological: A&O, normal speech Psychiatric: Cooperative Constitutional Vital Signs, click to edit/add: Last Vital Signs Temp 99.7 F 10/02/24 09:08 Pulse 101 H 10/02/24 09:08 Resp 18 10/02/24 09:08 BP 135/77 10/02/24 09:08 Pulse Ox 99 10/02/24 09:08 O2 Del Method Room Air 10/02/24 09:08 Course Vital Signs Vital signs: Vital Signs Temperature 99.7 F 10/02/24 09:08 Pulse Rate 101 H 10/02/24 09:08 Respiratory Rate 18 10/02/24 09:08 Blood Pressure 135/77 10/02/24 09:08 Pulse Oximetry 99 10/02/24 09:08 Oxygen Delivery Method Room Air 10/02/24 09:08 Temperature 99.7 F 10/02/24 09:08 Pulse Rate 101 H 10/02/24 09:08 Respiratory Rate 18 10/02/24 09:08 Blood Pressure 135/77 10/02/24 09:08 Pulse Oximetry 99 10/02/24 09:08 Oxygen Delivery Method Room Air 10/02/24 09:08 Medical Decision Making MDM Narrative Medical decision making narrative: Stool culture and C. difficile are ordered. Blood work is normal. If stool culture were to be positive she would need to be contacted. Treatment diagnosis and follow-up were discussed with the patient and her . Differential Diagnosis Differential Diagnosis: Viral gastroenteritis, bacterial gastroenteritis, dehydration Lab Data Lab results reviewed: Yes I reviewed the patient's lab results Labs: Lab Results 10/02/24 Range/Units 09:35 WBC 9.6 (4.0-11.0) 10^3/uL RBC 3.97 L (4.20-5.40) 10^6/uL Hgb 12.8 (12.0-16.0) g/dL Hct 37.4 (36.0-48.0) % MCV 94.2 (81.0-99.0) fL MCH 32.2 (26.7-34.0) pg MCHC 34.2 (29.9-35.2) g/dL RDW 12.5 (11.0-15.0) % Plt Count 299 (150-450) 10^3/uL MPV 9.6 (9.5-13.5) fL Neut % (Auto) 76.1 H (43.0-75.0) % Lymph % (Auto) 11.2 L (20.5-60.0) % Laurens % (Auto) 11.0 (1.7-12.0) % Eos % (Auto) 1.1 (0.9-7.0) % Baso % (Auto) 0.2 (0.2-2.0) % Neut # (Auto) 7.3 H (1.4-6.5) 10^3/uL Lymph # (Auto) 1.1 L (1.2-3.8) 10^3/uL [place] # (Auto) 1.1 H (0.3-0.8) 10^3/uL Eos # (Auto) 0.1 (0.0-0.7) 10^3/uL Baso # (Auto) 0.0 (0.0-0.1) 10^3/uL Abs Immat Gran (auto) 0.04 H (0.00-0.03) 10^3/uL Imm/Tot Granulo (auto) 0.4 (0.0-0.5) % Sodium 143 (136-145) mmol/L Potassium 3.5 (3.5-5.1) mmol/L Chloride 106 (98-107) mmol/L Carbon Dioxide 23.5 (21.0-32.0) mmol/L Anion Gap 17.0 BUN 12.0 (7.0-18.0) mg/dL Creatinine 0.81 (0.55-1.02) mg/dL Est GFR ( Amer) >60 (>=60 mL/min/1.73m^2) Est GFR (Non-Af Amer) >60 (>=60 mL/min/1.73m^2) BUN/Creatinine Ratio 14.8 Glucose 99 (74-106) mg/dL Calcium 9.0 (8.5-10.1) mg/dL Discharge Plan Discharge Chief Complaint: Nausea/Vomiting/Diarrhea Clinical Impression: Diarrhea Patient Disposition: Home, Self-Care Time of Disposition Decision: 11:38 Condition: Good Mode of Transportation: Private Vehicle Prescriptions / Home Meds: No Action atorvastatin 10 mg tablet levothyroxine 100 mcg tablet famotidine 20 mg tablet pantoprazole 40 mg tablet,delayed release (DR/EC) PO Claritin-D 12 Hour 5-120 mg tablet extended release 12 hr PO albuterol sulfate 90 mcg/actuation HFA aerosol inhaler INHALATION benazepril 10 mg tablet fluticasone furoate-vilanterol [Breo Ellipta] 200-25 mcg/dose blister with device INHALATION Print Language: Montserratian Instructions: Acute Diarrhea (ED) Referrals: Andrea Wu DO [Primary Care Provider, Internal Medicine] - 1 week
[2024-10-02] MEDS: 0.9 % SODIUM CHLORIDE 500 ML IV (09:40)
[2024-10-02 09:41] LABS: Hematocrit 37.4 % (36.0-48.0); Hemoglobin 12.8 g/dL (12.0-16.0); Immature Granulocytes Abs Auto 0.04 10^3/uL (0.00-0.03); Immature Granulocytes Pct Auto 0.4 % (0.0-0.5); Lymphocytes Absolute Auto 1.1 10^3/uL (1.2-3.8); Mean Corpuscular HGB Conc 34.2 g/dL (29.9-35.2); Mean Corpuscular Hemoglobin 32.2 pg (26.7-34.0); Mean Corpuscular Volume 94.2 fL (81.0-99.0); Platelet Count 299 10^3/uL (150-450); Red Blood Count 3.97 10^6/uL (4.20-5.40); White Blood Count 9.6 10^3/uL (4.0-11.0)
[2024-10-02 09:52] LABS: Anion Gap 17.0; Blood Urea Nitrogen 12.0 mg/dL (7.0-18.0); Calcium 9.0 mg/dL (8.5-10.1); Carbon Dioxide 23.5 mmol/L (21.0-32.0); Chloride 106 mmol/L (98-107); Estimated GFR (African America >60 (>=60 mL/min/1.73m^2); Estimated GFR (Non-African Ame >60 (>=60 mL/min/1.73m^2); Glucose 99 mg/dL (74-106); Potassium 3.5 mmol/L (3.5-5.1); Sodium 143 mmol/L (136-145)
[2024-10-02 11:20] VITALS: BP 130/70; PULSE 81; O2SAT 96
[2024-10-02 13:22] LABS: C. Difficile PCR NEGATIVE
== END 2024-10-02 12:22 | disposition home or self-care (01) ==
PROVIDERS: Emergency Provider Emergency Medicine; PCP Internal Medicine
DX: R19.7 Diarrhea, unspecified (principal)
CPT/HCPCS: 36415; 80048; 85025; 87045; 87046; 87427; 87493; 96360; 99284

== ENCOUNTER 2024-12-22 10:27 | Outpatient (OUT) | payer MEDICARE, OTHER, SELFPAY ==
--- OUTSIDE RECORDS SUMMARY | 2024-12-22 10:30 | XMS_ITS | Encounter Summary ---
Author Organization [facility] Address [address] [place] [address] Care Team Providers Care Coil Strapper Name Role Phone Andrea Wu Primary Care Provider [phone] Encounter Details Date Type Department Care Team (Late st Contact Info) Description 01/30/2023 Orders Only [facility] [address] [place] [address] Madison Burns DO [address] [place], [place] [phone] Social History Tobacco Use Types Packs/Day Years [...] 12/28/2024 9:20 AM EDT Office Visit [facility] [place] [facility] [address] [place] [address] Ezio Vasquez MD [address] [place], [place] [phone] 02/02/2025 8:15 AM EST Office Visit [facility] [address] [place] [address] Uraih Kilpatrick, DO [address] [place] [address] 02/24/2025 10:50 AM EST Office Visit [facility] [place] [facility] [address] [place] [address] Janae Crane MD [address] [place] [address] 05/11/2025 9:45 AM EST Office Visit [facility] [place] [facility] [address] [place] [address] Madison Burns DO [address] [place] [address] documented as of this encounter Procedures Procedure Name Priority Date/Time Associated Diagnosis Comments SCANNED LABS Routine 01/30/2023 1:10 PM EST documented in this encounter Results * SCANNED LABS (01/30/2023 1:10 PM EST) Madison Burns DO LAB CHG PERFORMABLES Final Result documented in this encounter Visit Diagnoses Not on filedocumented in this encounter Care Teams Coil Strapper Relationship Specialty Start Date End Date Andrea Wu DO PCP - General Internal Medicine 08/27/22 documented as of this encounter
--- OUTSIDE RECORDS SUMMARY | 2024-12-22 10:30 | XMS_ITS | Clinical Summary ---
Author Organization [facility] Address [address] [place] [address] Care Team Providers Care Quality Specialist Name Role Phone Unavailable Primary Care [...]
--- OUTSIDE RECORDS SUMMARY | 2024-12-22 10:30 | XMS_ITS | Clinical Summary ---
Author Organization [facility] Address [address] [place] [address] Phone Care Team Providers Care Shoe Shiner Name Role Phone Unavailable Primary Care Provider Unavailabl e Allergies Active Allergy Reactions Criticality Noted Date Comments Amoxicillin Unknown 09/14/2023 Bee Venom Protein (Honey Bee) Anaphylaxis High 10/21/2018 Iodinated Contrast Media Anaphylaxis,Hives,Ot her,Shortness of breath,Unknown High 12/08/2007 Iodine Anaphylaxis,Unknown High 01/14/2023 Penicillin Rash Low 09/14/2023 Sulfa (Sulfonamide Antibiotics) Rash,Unknown Low 12/08/2007 Sulfacetamide Wbt-Oafttl-Ughx Unknown 09/14/2023 Wasp Venom Anaphylaxis High 10/21/2018 [...] pea sized amount to [facility]ra 2x/wk[facility], [facility], cm, 02/20/23 8:48:00 [...] (AWV) 1952 Sigmoidoscopy 1952 TSH Level 1952 MMR Vaccines (1 of 1 - Standard series) 1953 Hepatitis C Screening 1970 DTaP/Tdap/Td Vaccines (1 - Tdap) 1974 Zoster Vaccines (1 of 2) 2002 Bone Density Scan 01/12/2023 01/12/2021 Mammogram 02/06/2024 02/05/2023, 01/16, 01/25/2021, Additional history exists COVID-19 Vaccine ( season) 2024 02/14/2023, 12/22/2021, 07/04/2021, Additional history exists Influenza Vaccine (#1) 2024 , 12/18/2021, 11/23/2020, Additional history exists Colonoscopy 05/21/2033 05/22/2023, 08/17, 01/16/2015, Additional history exists Colorectal Cancer Screening 05/21/2033 Pneumococcal Vaccine Completed 01/05/2019, 01/10/2017, 01/04/2016 RSV High Risk: (Elderly (60+) or Population) [...] to complete this topic Insurance [address] [place] [address] [facility] MEDICARE SUPPLEMENT Member Subscriber Plan / Payer (Ef fective 2021-Present) Name:Munira Chester Relation to Subscriber:Self Name:Munira Chester Payer ID:Not on file Type:Not on file Address: [facility] [address] [id number] MEDICARE PART A AND B [address] [place] [address] [facility] MEDICARE SUPPLEMENT MEDICARE PART A AND B
--- OUTSIDE RECORDS SUMMARY | 2024-12-22 10:30 | XMS_ITS | Encounter Summary ---
Author Organization [facility] Address [address] [place] [address] Care Team Providers Care Java Sql Developer Name Role Phone Andrea Wu DO Primary Care Provider [phone] Encounter Details Date Type Department Care Team (Late st Contact Info) Description 07/23/2023 Clinisync Result Encounter [facility] External Department Unsolicited Jeanette Luther MD [address] [facility] [address] [place], [place] [id number] Social History Tobacco Use Types Packs/Day Years [...] Allergy [address] [place] [address] Ezio Vasquez MD [address] [place] [address] 02/02/2025 8:15 AM EST Office Visit [facility] [address] [place] [phone] Uriah Kilpatrick, DO [address] [place] [address] 02/24/2025 10:50 AM EST Office Visit [facility] [place] [facility] [address] [place] [address] Janae Crane MD [address] [place] [address] 05/11/2025 9:45 AM EST Office Visit [facility] [address] [place] [address] Madison Burns DO [address] [place] [address] documented as of this encounter Procedures Procedure [...] Hurst DO Transcribed by: SAHIL Technologist: KE Jeanette Luther MD [facility] Final Resul t documented in this encounter Visit Diagnoses Not on filedocumented in this encounter Care Teams Java Sql Developer Relationship Specialty Start Date End Date Andrea Wu DO PCP - General Internal Medicine 08/27/22 documented as of this encounter
--- OUTSIDE RECORDS SUMMARY | 2024-12-22 10:30 | XMS_ITS | Encounter Summary ---
Author Organization [facility] Address [address] [facility] [place] [address] Care Team Providers Care Logistics Planning Engineer Name Role Phone Andrea Wu DO Primary Care Provider [phone] Encounter Details Date Type Department Care Team (Late st Contact Info) Description 06/20/2023 Orders Only [facility] [address] [facility] [address] [place] [address] Andrea Wu DO [address] [facility] [place] [address] Social History Tobacco Use Types Packs/Day Years [...] Description 12/28/2024 9:20 AM EDT Office Visit [facility] [address] [facility] [address] [place] [address] Ezio Vasquez MD [address] [facility] [address] [place] [address] 02/02/2025 8:15 AM EST Office Visit [facility] [address] [place] [address] Uriah Kilpatrick, DO [address] [place] [address] 02/24/2025 10:50 AM EST Office Visit [facility] [place] [facility] [address] [place] [address] Janae Crane MD [address] [place] [address] 05/11/2025 9:45 AM EST Office Visit [facility] [place] [facility] [address] [place] [address] Madison Burns DO [address] [place] [address] documented as of this encounter Procedures Procedure [...] on filedocumented in this encounter Care Teams Logistics Planning Engineer Relationship Specialty Start Date End Date Andrea Wu DO PCP - General Internal Medicine 08/27/22 documented as of this encounter
--- OUTSIDE RECORDS SUMMARY | 2024-12-22 10:30 | XMS_ITS | Encounter Summary ---
Author Organization [facility] Address [address] [place] [address] Care Team Providers Care Short Filler Bunch Machine Operator Name Role Phone Andrea Wu DO Primary Care Provider [phone] Reason for Visit * Reason Comments Med Refill Encounter Details Date Type Department Care Team (Late st Contact Info) Description 10/25/2024 Refill [facility] [address] [facility] [address] [place] [phone] Jeanette Luther MD [address] [facility] [address] [place] [address] Chronic pansinusitis Social History Tobacco Use Types Packs/Day Years [...] Description 12/28/2024 9:20 AM EDT Office Visit [facility] [place] [facility] [address] [place] [address] Ezio Vasquez MD [address] [place], [place] [phone] 02/02/2025 8:15 AM EST Office Visit [facility] [address] [place] [address] Uriah Kilpatrick, DO [address] [place] [address] 02/24/2025 10:50 AM EST Office Visit [facility] [place] [facility] [address] [place] [address] Janae Crane MD [address] [place] [address] 05/11/2025 9:45 AM EST Office Visit [facility] [place] [facility] [address] [place] [address] Madison Burns DO [address] [place] [address] documented as of this encounter Visit Diagnoses Diagnosis Chronic pansinusitis Other chronic sinusitis documented in this encounter Care Teams Short Filler Bunch Machine Operator Relationship Specialty Start Date End Date Andrea Wu DO PCP - General Internal Medicine 08/27/22 documented as of this encounter
--- OUTSIDE RECORDS SUMMARY | 2024-12-22 10:30 | XMS_ITS | Clinical Summary ---
Author Organization [facility] Address [address] [place], [place] [id number] Care Team Providers Care Skate Maker Name Role Phone Moustapha Haley MD Unavailable [phone] Chrissy Hector MD Unavailable [phone] Andrea Wu DO Primary Care Provider [phone] Allergies Active Allergy Reactions Criticality Noted Date [...] (FLONASE) 50 mcg/actuation nasal spray Use 1 [place] in each nostril once daily. Active atorvastatin [...] Take by mouth. Activ e vit A/vit C/biotin/zinc/nuclear spectroscopist per (TSPU-TUSE-HXEQ,V IT A,C-BIOTIN, ORAL) Take by mouth. Activ [...] extremity Episodic tension-type headache, not intractable 02/06/2016 Immunizations Immunization Administration Dates Next Due influenza [...] is lower risk 4 12/27/2023 Data from: https://www.neighborhoodatlas.medicine.[facility].edu/. 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 Not on file [...] exists Advance Directive Discussion 03/18/2024 Covid-19 Vaccine (2024-2 6 season) 2024 01/13/2024, 02/14/2023, 12/22/2021, Additional history exists Influenza Vaccine (#1) 2024 , 12/31/2022, 12/18/2021, Additional history exists Pneumococcal Vaccine: 50+ Completed 2018, 01/10/2017, 01/04/2016 Bone Density Screening Completed 01/12/2021, 2018 RSV Vaccine Completed 12/31/2022 Medical Devices Implanted Type Area Teenage Program Director Device Identifier Shelf Expiration Date Model / Serial / Lot Pin Pin Right: Bone - Shoulder Screw Screw Right: Bone - Shoulder Insurance MEDICARE [facility] MEDICARE SUPPLEMENT Care Teams Skate Maker Relationship Specialty Start Date End Date Andrea Wu DO [address] [place] [address] PCP - General Internal Medicine 12/27/23 Moustapha Haley MD [address] [place], [place] [address], [place] [address] Internal Medicine 12/27/23 Chrissy Hector MD [address] [place] [id number] Hematology/Oncology 12/27/23
--- OUTSIDE RECORDS SUMMARY | 2024-12-22 10:30 | XMS_ITS | Encounter Summary ---
Author Organization [facility] Address [address] [place], [place] [id number] Care Team Providers Care Manager Interventional Name Role Phone Moustapha Haley MD Unavailable [phone] Chrissy Hector MD Unavailable [phone] Andrea Wu DO Primary Care Provider [phone] Source Comments In the event this information is protected by the Federal Confidentiality of Alcohol and Drug AbusePatient Records regulations: The Federal rules restrict any use of the information to criminally investigate or prosecute any alcohol or drug abuse patient.[facility] Encounter Details Date Type Department Care Team (Late st Contact Info) Description 07/27/2024 Telephone Gastroenterology [address] [place] [address] Kasey Fallon MD [facility] [address] [id number] Social History Tobacco Use Types Packs/Day Years Used Date Smoking Tobacco: Never Smokeless Tobacco: Never Alcohol Use Standard Drinks/Week Comments No 0 (1 standard drink = 0.6 oz pur e alcohol) Area Deprivation Index Answer Date Jaylon rded National Score (1-100), lower number is lower ri sk 59 12/27/2023 State Score (1-10), lower number is lower risk 4 12/27/2023 Data from: https://www.neighborhoodatlas.medicine.[facility].edu/. 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 [facility] Chloe documented in this encounter Plan of Treatment Not on file documented as of this encounter Visit Diagnoses Not on filedocumented in this encounter Care Teams Manager Interventional Relationship Specialty Start Date End Date Andrea Wu DO [address] [place] [address] PCP - General Internal Medicine 12/27/23 Moustapha Haley MD [address] [place] [address] [address] [place] [address] Internal Medicine 12/27/23 Chrissy Hector MD [address] [place] [address] Hematology/Oncology 12/27/23 documented as of this encounter
--- OUTSIDE RECORDS SUMMARY | 2024-12-22 10:30 | XMS_ITS | Encounter Summary ---
Author Organization [facility] Address [address] [place] [address] Care Team Providers Care Local Combination Truck Driver Name Role Phone Andrea Wu DO Primary Care Provider [phone] Reason for Visit * Reason Comments Med Refill Encounter Details Date Type Department Care Team (Late st Contact Info) Description 10/23/2022 Refill [facility] [address] [place] [address] Madison Burns DO [address] [place], [place] [phone] Social History Tobacco Use Types Packs/Day Years [...] Visit [facility] [address] [place] [address] Ezio Vasquez MD [address] [place], [place] [address] 02/02/2025 8:15 AM EST Office Visit [facility] [address] [place] [address] Uriah Kilpatrick, DO [address] [place] [address] 02/24/2025 10:50 AM EST Office Visit [facility] [place] [facility] [address] [place] [address] Janae Crane MD [address] [place] [address] 05/11/2025 9:45 AM EST Office Visit [facility] [address] [place] [address] Madison Bruns DO [address] [place] [address] documented as of this encounter Visit Diagnoses Not on filedocumented in this encounter Care Teams Local Combination Truck Driver Relationship Specialty Start Date End Date Andrea Wu DO PCP - General Internal Medicine 08/27/22 documented as of this encounter
--- OUTSIDE RECORDS SUMMARY | 2024-12-22 10:30 | XMS_ITS | Encounter Summary ---
Author Organization [facility] Address [address] [place] [address] Care Team Providers Care Manager Manufacturing Name Role Phone Andrea Wu Primary Care Provider [phone] Encounter Details Date Type Department Care Team (Late st Contact Info) Description 02/27/2023 Orders Only [facility] [address] [place] [address] Madison Burns DO [address] [place], [place] [phone] Social History Tobacco Use Types Packs/Day Years [...] Allergy [address] [place] [address] Ezio Vasquez MD [address] [place], [place] [phone] 02/02/2025 8:15 AM EST Office Visit [facility] [address] [place] [address] Uriah Kilpatrick, DO [address] [place] [address] 02/24/2025 10:50 AM EST Office Visit [facility] [place] [facility] [address] [place] [address] Janae Crane MD [address] [place] [address] 05/11/2025 9:45 AM EST Office Visit [facility] [place] [facility] [address] [place] [address] Madison Burns DO [address] [place] [address] documented as of this encounter Procedures Procedure [...] filedocumented in this encounter Care Teams Manager Manufacturing Relationship Specialty Start Date End Date Andrea Wu DO PCP - General Internal Medicine 08/27/22 documented as of this encounter
--- OUTSIDE RECORDS SUMMARY | 2024-12-22 10:30 | XMS_ITS | Clinical Summary ---
Author Organization [facility] Address [address] [place] [address] Care Team Providers Care Puff Iron Operator Name Role Phone Andrea Wu DO Primary Care Provider [phone] Allergies Active Allergy Reactions Criticality Noted Date [...] apply pea sized amount to urethra 2x/wk, [facility], cm, 02/20/23 8:48:00 EST, Height/Length [...] tip and replace cap. 16 g 11 07/02/19 24 Active metoclopramide (Reglan) 10 MG [...] for allergies 90 tablet 3 10/18/19 24 Active Fluticasone Propionate (Xhance) 93 MCG/ACT Exhaler SuspensionIndica tions:Chronic pansinusitis Administer 1 spray into affected nostril(s) in the morning and 1 spray before bedtime. 48 mL 3 12/30/19 24 Active metroNIDAZOLE (Metrogel) 1 % gelIndications:L ichen sclerosus et atrophicus Apply 1 application topically Daily Apply 1 application topically Daily 60 g 1 09/16/19 25 025 Active Problems Problem Noted [...] Hyperlipidemia 06/27/2023 LPRD (laryngopharyngeal reflux disease) 06/27/19 Migraine headache 06/27/2023 Osteopenia 06/27/2023 Peripheral eosinophilia 06/27/2023 Pharyngoesophageal dysphagia 06/27/2023 Urethral caruncle 06/27/2023 Stridor 06/27/2023 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[facility] 06/27/2023 Spondylosis of lumbar spine 06/27/2023 Pulmonary [...] Encounters Date Type Department Care Team Description 10/29/2024 Telephone [facility] [address] [facility] [address] [place] [phone] Jeanette Luther MD refill 10/25/2024 Refill [facility] [address] [facility] [address] [place] [phone] Jeanette Luther MD Chronic pansinusitis 10/02/2024 Telephone [facility] [address] [place] [address] Crissy Mcdonough MA from Last 3 Months Family History Medical [...] Allergy [address] [place] [phone] Ezio Vasquez MD [address] [place] [address] 02/02/2025 8:15 AM EST Office Visit [facility] [address] [place] [phone] Uriah Kilpatrick, DO [address] [place] [address] 02/24/2025 10:50 AM EST Office Visit [facility] [address] [place] [address] Janae Crane MD [address] [place] [address] 05/11/2025 9:45 AM EST Office Visit [facility] [address] [place] [address] Madison Burns, DO [address] [place] [address] Health Maintenance Due Date Last Done Comments [...] Relevant to Health Maintenance Insurance [employer] Care Teams Puff Iron Operator Relationship Specialty Start Date End Date Andrea Wu DO PCP - General Internal Medicine 08/27/22
--- OUTSIDE RECORDS SUMMARY | 2024-12-22 10:30 | XMS_ITS | Encounter Summary ---
Author Organization [facility] Address [address] [facility] [place] [address] Care Team Providers Care Instrument Engineer Name Role Phone Andrea Wu DO Primary Care Provider Encounter Details Date Type Department Care Team (Late st Contact Info) Description 02/03/2024 Orders Only [facility] [address] [place] [address] Madison Burns DO [address] [place] [address] Social History Tobacco Use Types Packs/Day Years [...] Description 12/28/2024 9:20 AM EDT Office Visit [facility] [address] [place] [address] Ezio Vasquez MD [address] [place] [address] 02/02/2025 8:15 AM EST Office Visit [facility] [address] [place] [phone] Uriah Kilpatrick DO [address] [place] [address] 02/24/2025 10:50 AM EST Office Visit [facility] [address] [place] [address] Janae Crane MD [address] [place] [address] 05/11/2025 9:45 AM EST Office Visit [facility] [place] [facility] [address] [place] [address] Madison Burns DO [address] [place] [address] documented as of this encounter Procedures Procedure [...] on filedocumented in this encounter Care Teams Instrument Engineer Relationship Specialty Start Date End Date Andrea Wu DO PCP - General Internal Medicine 08/27/22 documented as of this encounter
--- NOTE | 2024-12-22 10:31 | XR_ITS ---
[facility] [place] [id number] Patient Name: SIA ALEXANDER MRN: [id number] date: 1950 Sex: F Assigned Patient Location: [facility] Current Patient Location: [facility] Accession/Order Number: [id number] Exam Date: 12/22/2024 10:45 Report Date: 12/22/2024 11:30 At the request of: CHUNG GOLDEN DO Procedure: XR lumbar spine 6V w bending LUMBAR SPINE WITH FLEXION AND EXTENSION VIEWS -7 views: CLINICAL HISTORY: Mid to low back pain for the past week. No reported injury. COMPARISON: CT 05/20/2023 AP, lateral (neutral, flexion and extension, both oblique and lateral coned-down views of the lumbosacral junction were obtained. There is osteopenia. Dextroscoliotic curvature is noted. 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 There is minor wedge deformity at the superior endplates of L2 and L3 which are not obvious on the prior. There is still minimal anterolisthesis of L4 and L5. Alignment does not change significantly with flexion or extension. There is slight disc space narrowing at the upper lumbar levels toward the left related to the scoliosis. Endplate spurring and lower lumbar facet hypertrophy are seen. No pars defect is identified. The sacroiliac joints are maintained. There are no paraspinal soft tissue abnormalities. XR/XR lumbar spine 6V w bending IMPRESSION: OSTEOPENIA, SCOLIOSIS AND DEGENERATIVE CHANGES. DEVELOPING MINOR WEDGE DEFORMITIES AT L2 AND L3. MRI COULD BE CONSIDERED TO BETTER ASSESS CHRONICITY, WARRANTED. Impression dictated by: Noemí Robin M.D. 12/22/2024 11:30 AM Dictation Location: [place] [address] Electronically authenticated by: [id number] Y Date: 12/22/2024 11:30
--- OUTSIDE RECORDS SUMMARY | 2024-12-22 10:35 | XMS_ITS | CCD ---
Author Organization [facility] Care Team Providers Care [employer] Receiver Name Role Phone Espinoza Ruiz Unavailable ANDREA GOLDEN Primary Care Physician Andrea Golden Unavailable Luma Chirinos Unavailable PABLO, DR CAMPOS Nixon Consulting Unavailable CHICO, DR WILKES Primary Care Unavailable SOCRATES, TERESA Attending Unavailable TERESA CROWELL Admitting Unavailable TERESA CROWELL Consulting Unavailable JESÚS, DR JEROME Winkler Consulting Unavailable AZUCENA ., DR MONZON Attending Unavailable HAY ., DR MONZON Admitting Unavailable CHICO, DR WILKES Primary Care Unavailable HAY ., DR MONZON Consulting Unavailable ESPINOZA RUIZ Consulting Unavailable BASHIR DANIELLE Consulting Unavailable CHICO, DR WILKES Primary Care Unavailable LOLIS, BASHIR Ramos Attending Unavailable BASHIR DANIELLE Admitting Unavailable MARGARITO [...] Provider UnavailLUMA Latif Attending Unavailable DARLINE PEREIRA W Referring Unavailable Tera VILLEGAS, Jones Talthang Unavailable [phone] Krunal VILLEGAS, Chrissy Unavailable [phone] Andrea Golden DO Primary Care Provider Andrea Golden MD Primary Care Provider Mojerelli Mohamad A. Attending Unavailable Mouchli, Mohamad A. Attending Unavailable Mouchli, Mohamad A. Attending Unavailable Mouchli, Mohamad A. Attending Unavailable Mouchli, Mohamad A. Attending Unavailable Lue, Asuncion M. Attending Unavailable [...] Referring Unavailable Lue, Asuncion M. Admitting Unavailable LueAsuncion. Attending Unavailable LueAsuncion M. Attending Unavailable Lue, Asuncion M. Referring Unavailable Lue, Asuncion M. Admitting Unavailable RINEDGARD MADISON E Attending Unavailable RAMBASEK, CHARITO E Attending Unavailable RAMBASEK, CHARITO E Attending Unavailable RAMBASEK, CHARITO E Attending Unavailable TIMMIS, MARCI H Attending Unavailable RAMBASEK, CHARITO E Attending Unavailable TIMMIS, MARCI H Attending Unavailable RAMBASEK, CHARITO E Attending Unavailable RAMBASEK, CHARITO E Attending Unavailable RAMBASEK, CHARITO E Attending Unavailable MARSHA LAL Attending Unavailable AnitaeAsuncion MJose Admitting Unavailable Lue, Asuncion M. Attending Unavailable AnitaeAsuncion M. Referring Unavailable Lue, Asuncion M. Referring Unavailable Lue, Asuncion M. Attending Unavailable Lue, Asuncion M. Admitting Unavailable Jones Ace MD Unavailable [phone] JONES ACE Referring Unavailable PASKASEY KAHN Attending Unavailable BALL, ANDREA E Primary Care Unavailable BALL, ANDREA E Primary Care Unavailable ANDRESELUZ ELENA Attending Unavailable MADELEINE KASEY Referring Unavailable PASCRISS KASEY Referring Unavailable Ball DO, Andrea E Primary Care Provider Asuncion Buchanan Referring Unavailable Lue Asuncion M. Attending Unavailable Anitae Asuncion M. Admitting Unavailable Del Nettles Attending Unavailable Del Nettles AJose Attending Unavailable Asuncion Buchanan Attending Unavailable Allergies Allergy Classification Reported Allergen(s) Allergy Type Date of Onset Reaction(s) Facility (20 sources) Amoxicillin; Translations: [AMOXICILLIN] Drug Allergy 10-22-19 19 Rash, Unknown, Other: See Comments [facility] (20 sources) Sulfacetamide / Sulfur Drug Allergy Unknown [facility] Other (20 sources) idp dye Propensity to adverse reactions 06-21-19 24 Unknown, Unknown Reaction [facility] (20 sources) Sulfonamides (Antibiotic); Translations: [SULFA (SULFONAMIDE ANTIBIOTICS)] Allergy to substance 12-08-19 Rash, Unknown [facility] (20 sources) wasp venom; Translations: [WASP VENOM] Allergy to substance 10-22-19 19 Anaphylaxis [facility] (9 sources) bee venom protein (honey bee); Translations: [BEE VENOM PROTEIN (HONEY BEE)] Allergy to substance 10-22-19 19 Anaphylaxis [facility] (20 sources) Iodinated Contrast Media; Translations: [IODINATED CONTRAST MEDIA] Allergy to substance 12-08-19 08 Other, Shortness of breath, Unknown, Anaphylaxis, Hives [facility] (20 sources) Bee/Wasp/Ant venom; Translations: [Bee Stings] Drug allergy Dyspnea (finding), Weal (disorder) [facility] (20 sources) Contrast media; Translations: [contrast media (iodine-based)] Drug allergy 12-08-19 08 Dyspnea (finding), Weal (disorder) [facility] (20 sources) Iodine; Translations: [iodine] Drug Allergy 01-15-20 23 Unknown (qualifier value), Unknown, Anaphylaxis [facility] (20 sources) Penicillin; Translations: [penicillin] Drug Allergy 09-14-19 24 Eruption of skin (disorder), Rash [facility] (20 sources) Sulfonamides (Antibiotic); Translations: [sulfa drugs] Drug allergy Angioedema (disorder) [facility] (1 source) bee venom Drug allergy (disorder) [facility] (1 source) Iodine (And Iodine Containting Drugs) Drug allergy (disorder) 01-19-20 15 [facility] (5 sources) Penicillins Drug allergy (disorder) 06-21-19 24 Unknown Reaction [facility] (1 source) Sulfonamides (Antibiotic) Drug allergy (disorder) 03-18-18 56 [facility] (2 sources) Iodine / Sodium Iodide Drug Allergy Unknown [facility] Other (18 sources) Substance with penicillin structure and antibacterial mechanism of action (substance) Drug allergy Unknown [facility] Other (20 sources) Substance with sulfonamide structure and antibacterial mechanism of action (substance) Drug allergy 12-08-19 08 Unknown [facility] Other (2 sources) Allergies Reconciled Propensity to adverse reactions Unknown [facility] Other (2 sources) patient allergy list reviewed by nurse or physicia Propensity to adverse reactions 09-25-19 Comment:Done [facility] Other (12 sources) Penicillin G Drug Allergy 01-15-20 23 Rash [facility] (4 sources) Sulfacetamide Drug Allergy 06-21-19 24 Unknown Reaction [facility] (4 sources) Sulfur Drug Allergy 06-21-19 24 Unknown Reaction [facility] (4 sources) SULFACETAMIDE [id number]; Translations: [SULFACETAMIDE [id number]] Propensity to adverse reactions to drug (disorder) 09-14-19 24 Unknown [facility] Repository (1 source) Contrast media; Translations: [CONTRAST DYE] Propensity to adverse reactions to drug (disorder) 12-08-19 08 [facility] Medications Current Medications Medication Drug [...] Feb, Active acetaminophen 325 mg oral tablet (7 sources) take 2 tablets by mouth every six hours as needed acetaminophen (TYLENOL) 325 mg tablet Take 650 mg by mouth every 6 hours as needed. Active [id number] 200 actuat albuterol 0.09 mg/actuat metered dose [...] 0, Prophylaxis Start Date: 09/02/19 Status: Ordered Repeat number: 1 take 1 tablet by grzegorz th once daily Fosamax 70 MG tablet 1 tablet 30 minutes before the first food, beverage or medicine of the day with plain water Orally for 30 day(s) Active amLODIPine 5 mg oral tablet (20 sources) Dihydropyridine Calcium Channel Beau Start: 02-20-2023 End: 05-23-2023 take 1 tablet by mouth once daily amLODIPine 5 mg Tab 5 mg = 1 tab(s), Oral, Daily, Refills(s) 0, High blood pressure Start Date: 02/20/23 Status: Ordered Repeat number: 1 aspirin 325 mg oral tablet (8 sources) Platelet Aggregation Inhibitor, Nonsteroidal Anti-inflammatory Drug aspirin 325 mg cap Take by mouth. Active aspirin 81 mg EC tablet once every 24 hours. Active aspirin 770 mg / caffeine 60 mg / orphenadrine citrate 50 mg oral tablet (5 sources) Platelet Aggregation Inhibitor, Nonsteroidal Anti-inflammatory Drug, Muscle Relaxant, Central Nervous System Stimulant, Methylxanthine Start: 10-21-2018 take 0.5 tablet by mouth four times daily as needed for headache [id number]-Rpl-Qaemjera 50-770-60 mg Tablet Active 0.5 TAB PO [...] 10 mg tablet Active 0 .ROUTE .COMPLEX 90 January 27, 2024 1:00pm TAKE 1 TABLET EVERY EVENING Start: 10-21-2018 End: 01-27-2024 take 1 tablet by mouth once daily atorvastatin 10 mg Tab 10 mg = 1 tab(s), Oral, Daily, Refills(s) 0, High cholesterol Start Date: 09/02/19 Status: Ordered Repeat number: 1 azelastine hydrochloride 0.137 mg/actuat metered dose nasal spray (20 sources) Histamine-1 Receptor Antagonist Start: 05-16-2023 End: 05-15-2024 take 2 spray(s) nasal route in the morning azelastine (Astelin) 0.1 % nasal spray Indications: Chronic rhinitis Administer 2 sprays into each nostril in the morning and 2 sprays before bedtime. Use in each nostril as directed. 90 mL 3 05/16/2023 Active Start: 02-18-2023 take 2 spray(s) nasa [...] Ellipta 200 mcg-25 mcg/ inh inhalation powder (9 sources) Start: 02-05-2024 Breo Ellipta 2 00 mcg-25 mcg/inh inhalation powder 1 inh, Inhalation, Daily, Refill(s) 0 Start Date: 02/05/24 Status: Ordered Repeat number: 1 Start: 02-05-2024 Breo Ellipta 2 00 mcg-25 mcg/inh inhalation powder 1 inh, Inhalation, Daily, Refill(s) 0 Start Date: 02/05/24 Status: Ordered Start: 02-05-2024 Breo Ellipta 2 00 mcg-25 mcg/inh inhalation powder 1 inh, Refill(s) 0 Start Date: 02/05/24 Status: Ordered Start: 09-02-2019 take 1 puff(s) by in halation once daily Breo Ellipta 200 mcg-25 mcg/inh inhalation powder 1 puff(s), Inhalation, Daily, Refill(s) 0 Start Date: 09/02/19 Status: Ordered budesonide 0.25 mg/ml inhalation suspension (11 sources) Corticosteroid Start: 08-20-2023 End: 08-19-2024 take 2 mL by mouth in the morning budesonide (Pulmicort) 0.5 MG/2ML nebulizer solution Indications: Chronic maxillary sinusitis Take 2 mL (0.5 mg) by nebulization in the morning. Rinse mouth with water after use to reduce aftertaste and incidence of candidiasis. Do not swallow.. 60 mL 11 08/20/2023 Active calcium carbonate 600 mg chewable tablet [...] 2024 8:43am Calcium Carbonate / vitamin D3 (7 sources) calcium carbonate/vitamin D3 (CALCIUM + D ORAL) [...] day(s), # 2 cap(s), Refills(s) 0, Pharmacy: [id number], 158, cm, 02/05/24 11:08:00 EST, Height/Length Dosing, 62, kg, 02/05/24 11:08:00 EST, Weight Dosing Start Date: 02/05/24 Stop Date: 02/06/24 Status: Ordered cetirizine hydrochloride 10 mg oral tablet (20 sources) Histamine-1 Receptor Antagonist Start: End: 025 take 1 tablet by mouth once daily as needed cetirizine (ZyrTEC) 10 MG tablet Indications: Chronic pansinusitis Take 1 tablet (10 mg) by mouth Daily as needed for allergies 90 tablet 3 10/18/2023 Active Start: 08-15-2023 Zyrtec Oral, D aily, Refills(s) 0, Allergy symptoms Start Date: 08/15/23 Status: Ordered Repeat number: 1 Start: 08-15-2023 Zyrtec Oral, D aily, Refills(s) 0, Allergy symptoms Start Date: 08/15/23 Status: Ordered Start: 08-15-2023 Zyrtec Daily, Refills(s) 0 Start Date: 08/15/23 Status: Ordered Cetirizine 10 mg cap Take by mouth. Active take 1 tablet by grzegorz th once daily cetirizine (ZyrTEC) 10 mg tablet take 1 tablet by mouth once daily if needed for allergies Active cholecalciferol 0.05 mg oral capsule (13 sources) Vitamin D Start: 05-18-2022 take 1 capsule by mouth in the morning RA Vitamin D-3 50 MCG (1999 UT) capsule Take 50 mcg by mouth in the morning. 05/18/2022 Active cholecalciferol, vitamin D3, (D3-1999 ORAL) (7 sources) cholecalciferol, vitamin D3, (D3-1999 ORAL) Take by mouth. Active cholestyramine resin 4000 mg powder for oral suspension (1 source) Bile Acid Sequestrant Start: 08-05-2024 Questran 4 g/9 g oral powder = 1 packet(s), Oral, Daily, # 30 EA, Refills(s) 3, Pharmacy: [id number], 158, cm, 08/05/24 14:23:00 EDT, Height/Length Dosing, 77.2, kg, 08/05/24 14:23:00 EDT, Weight Dosing Start Date: 08/05/24 Status: Ordered Quantity: 30.0 Unit: EA Repeat number: 4 Indications: Adverse effect of other nonsteroidal anti-inflammatory drugs [NSAID], initial encounter; Noninfective gastroenteritis and colitis, unspecified; Postcholecystectomy syndrome; Acquired absence of other specified parts of digestive tract; Acquired absence of other specified parts of digestive tract; ciprofloxacin 500 mg oral tablet (1 source) Quinolone Antimicrobial Start: 04-07-2024 End: 04-08-2024 Cipro 500 mg Tab 500 mg = 1 tab(s), Oral, q12hr, Start morning of white removal in 1-2 days, X 1 day(s), # 2 tab(s), Refills(s) 0, Pharmacy: [id number], 158, cm, 03/24/24 11:38:00 EST, Height/Length Dosing, 75.5, kg, 03/24/24 11:38:00 EST, Weight Dosing Start Date: 04/07/24 Stop Date: 04/08/24 Status: Ordered clobetasol propionate 0.0005 mg/mg topical ointment (2 sources) Corticosteroid Start: 04-16-2024 End: 04-23-2024 clobetasol (Temovate) 0.05 % ointment Indications: Lichen sclerosus et atrophicus Apply topically 2 (two) times a day for 7 days 30 g 2 04/16/2024 04/23/2024 Active codeine phosphate/guaifenes in (CODEINE-GUAIFENESI N ORAL) (7 sources) codeine phosphate/guaifenesin (CODEINE-GUAIFENESIN ORAL) Take by mouth. Active enteric contrast [...] guidelines. 1 Each 0 10/31/2023 11/01/2023 Active [id number] 0.3 ml EPINEPHrine 1 mg/ml auto-injector (20 [...] Refills(s) 0 Start Date: 09/04/19 Status: Ordered Repeat number: 1 Start: 09-04-2019 inject 0.3 mg by int [...] 20 mg tablet Discontinued 0 .ROUTE .COMPLEX January 27, 2024 12:59pm February 05, 2024 9:02am TAKE 1 TABLET AT BEDTIME Start: 02-20-2023 take 1 tablet by grzegorz th twice daily famotidine 20 mg Tab 20 mg = 1 tab(s), Oral, BID, Refills(s) 0, Control of stomach acid Start Date: 02/20/23 Status: Ordered Repeat number: 1 Start: 12-23-2022 End: 01-27-2024 take 1 tablet by mouth once daily at bedtime Famotidine 20 mg tablet Active 20 MG PO Daily at bedtime February 05, 2024 9:02am fluocinonide 0.5 mg/ml [...] Refill(s) 0 Start Date: 02/05/24 Status: Ordered Repeat number: 1 Start: 02-05-2024 take 1 spray(s) nasa l [...] and replace cap. 16 g 11 07/02/2023 Active Start: 09-02-2019 fluticasone 0. 05 mg/inh Nasal [place] 2 spray(s), Nasal, Daily, Refill(s) 0 Start [...] puff Inhalation daily Active fluticasone 0.05 mg/inh Nasa l [place] (19 sources) Start: 09-02-2019 fluticasone 0. 05 mg/inh Nasal [place] 2 spray(s), Nasal, Daily, Refill(s) 0 Start Date: 09/02/19 Status: Ordered Repeat number: 1 Start: 09-02-2019 fluticasone 0. 05 mg/inh Nasal [place] 2 spray(s), Nasal, Daily, Refill(s) 0 Start Date: 09/02/19 Status: Ordered Hair, Skin & Nails 5 mg oral capsule (8 sources) Start: 02-05-2024 take 1 mg by mouth once daily Hair, Skin & Nails 5 mg oral capsule mg, cap(s), Oral, Daily, Refill(s) 0 Start Date: 02/05/24 Status: Ordered Repeat number: 1 Start: 02-05-2024 take 1 mg by mouth once daily Hair, Skin & Nails 5 mg oral capsule mg, cap(s), Oral, Daily, Refill(s) 0 Start Date: 02/05/24 Status: Ordered ibuprofen 200 mg oral capsule (7 sources) Nonsteroidal Anti-inflammatory Drug Ibuprofen 200 mg cap Take by mouth every 6 hours as needed. Active iron bis-glycinat/vit C/FA/B12 (GENTLE IRON ORAL) (7 sources) iron bis-glycinat/vit C/FA/B12 (GENTLE IRON ORAL) Take by mouth. Active iron polysaccharide complex (FERREX 150 ORAL) (7 sources) iron polysacchar jie complex (FERREX 150 ORAL) Take by mouth every other day. Active iv contrast (will be provided with radiology test) (1 source) Start: End: iv contrast (will be provided with radiology [...] oral tablet (5 sources) Quinolone Antimicrobial Start: take 1 tablet by mouth every twenty-four hours levoFLOXacin 750 MG 1 tablet Orally Once a day for 5 days Mar, Active levothyroxine sodium 0.1 mg oral tablet (20 sources) l-Thyroxine Start: 025 take 1 tablet by mouth once daily levothyroxine 100 mcg (0.1 mg) Tab 100 mcg = 1 tab(s), Oral, Daily, Refills(s) 0, Thyroid Start Date: 03/24/24 Status: Ordered Repeat number: 1 Start: 01-27-2024 Levothyroxine 100 mcg tablet Active 0 .ROUTE .COMPLEX January 27, 2024 12:59pm TAKE 1 TABLET DAILY ON AN EMPTY STOMACH (REPLACING 88MCG) Start: 09-04-2019 take 1 tablet by grzegorz th once daily levothyroxine 88 mcg (0.088 mg) Tab 88 microgram = 1 tab(s), Oral, Daily, Refills(s) 0, Thyroid Start Date: 09/04/19 Status: Ordered Start: 12-08-2007 End: 01-27-2024 levothyroxine sodium(SYNTHRO ID 100 MCG TAB) Take one(1) tablet daily. [...] Jan, Active metoclopramide 10 mg oral tablet (13 sources) Dopamine-2 Receptor Antagonist Start: 07-12-2023 take [...] 10 mg before bedtime. 07/12/2023 Active metroNIDAZOLE 0.01 mg/mg topical gel (20 sources) Nitroimidazole Antimicrobial Start: 09-15-2024 End: 12-14-2024 metroNIDAZOLE (Metrogel) 1 % gel Indications: Lichen sclerosus et atrophicus Apply 1 application topically Daily Apply 1 application topically Daily 60 g 1 09/15/2024 12/14/2024 Active Start: 02-05-2024 Metronidazole 0.75 % (37.5mg/5 gram) [...] 30 tab(s), Refills(s) 6, [facility]: [id number], 158, cm, 12/01/21 9:55:00 EDT, Height/Length Dosing, 68, kg, 12/01/21 9:55:00 EDT, Weight Dosing Start Date: 12/01/21 Status: Ordered montelukast 10 mg oral tablet (20 sources) Leukotriene Receptor Antagonist Start: 02-05-2024 take 1 tablet by mouth once daily in the evening montelukast 10 mg Tab 10 mg = 1 tab(s), Oral, qPM, # 90 tab(s), Refills(s) 0, Asthma Start Date: 02/05/24 Status: Ordered Quantity: 90.0 Unit: tab(s) Repeat number: 1 Start: 12-26-2022 End: 05-23-2023 montelukast (Singulair) 10 m g tablet Daily 05/23/2023 Active Multi Vitamins oral tablet (8 sources) Start: 02-05-2024 Multi Vitamins oral tablet 1 tab(s), Oral, Daily, 30 tab(s), Refill(s) 0 Start Date: 02/05/24 Status: Ordered Quantity: 30.0 Unit: tab(s) Repeat number: 1 Start: 02-05-2024 Multi Vitamins oral tablet 1 tab(s), Oral, Daily, 30 tab(s), Refill(s) 0 Start Date: 02/05/24 Status: Ordered mv-min/iron/folic/calcium/vi tK (WOMEN'S MULTIVITAMIN ORAL) (7 sources) mv-min/iron/foli c/calcium/vitK (WOMEN'S MULTIVITAMIN ORAL) Take by mouth. Active nitrofurantoin, macrocrystal s 100 mg oral capsule (8 sources) Nitrofuran Antibacterial S t a r t : 1 1 - 2 0 - 2 0 2 4 take 1 capsule by mouth once daily at bedtime Nitrofurantoin Macrocrystal 100 mg capsule Active 100 MG PO Daily at bedtime February 05, 2024 12:00am after intercourse nitrofurantoin m acrocrystal (MACRODANTIN) 100 mg capsule 100 mg by ORAL/FEEDING TUBE route. 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 60 packet 3 07/27/2024 Active 12 hr orphenadrine citrate 100 mg extended release oral tablet (13 sources) Muscle Relaxant Start: 02-06-2016 orphenadrine E R (NORFLEX) 100 mg tablet Two tablets daily as needed 40 tablet 0 02/06/2016 Active orphenadrine compounding powder (8 sources) Start: 02-05-2024 orphenadrine c ompounding powder PRN Migraine headache, Refills(s) 0 Start Date: 02/05/24 Status: Ordered Repeat number: 1 Start: 02-05-2024 orphenadrine c ompounding powder PRN [...] spasms, # 30 tab(s), Refills(s) 0, Pharmacy: [id number], 158, cm, 03/24/24 11:38:00 EST, Height/Length Dosing, 75.5, kg, 03/24/24 11:38:00 EST, Weight Dosing Start Date: 04/07/24 Status: Ordered pain off aspirin (1 source) Start: 04-13-2021 pain off aspir in pain off aspirin Start Date: 04/13/21 Status: Ordered pantoprazole 40 mg delayed release oral tablet (20 sources) Proton Pump Inhibitor Start: 12-11-2019 End: 01-27-2024 take 1 tablet by mouth once daily Pantoprazole [address] Tab 40 mg = 1 tab(s), Oral, Daily, # 90 tab(s), Refills(s) 1, [facility]: [id number] [facility], 154.9, cm, 12/11/19 9:26:00 EDT, Height/Length Dosing, 70.2, kg, 12/11/19 9:26:00 EDT, Weight Dosing Start Date: 12/11/19 Status: Ordered Quantity: 90.0 Unit: tab(s) Repeat number: 2 Indications: Epigastric pain; Gastro-esophageal reflux disease without esophagitis; Body mass index (BMI) 29.0-29.9, adult; Epigastric pain; Abdominal distension (gaseous); Gastro-esophageal reflux disease without esophagitis; Abdominal distension (gaseous); Personal history of other diseases of the digestive system; Personal history of other diseases of the digestive system; Body mass index (BMI) 29.0-29.9, adult; take 1 tablet by mouth twice kanika [...] 30 MINUTES BY BREAKFAST polyethylene glycol 3350 [id number] mg / potassium chloride 2970 mg / sodium bicarbonate 6740 mg / sodium chloride 5860 mg / sodium sulfate 47362 mg powder for oral solution (7 sources) Osmotic Laxative Start: 12-27-2023 peg 3350-Elec trolytes [...] Active ProAir HFA 90 mcg/inh inhalation aerosol (19 sources) Start: 09-02-2019 take 2 puff(s) by inhalation every four hours ProAir HFA 90 mcg/inh inhalation aerosol 2 puff(s), Inhalation, q4hr Shortness of breath or wheezing, Refill(s) 0 Start Date: 09/02/19 Status: Ordered Repeat number: 1 Start: 09-02-2019 take 2 puff(s) by in halation every four hours ProAir HFA 90 mcg/inh inhalation aerosol 2 puff(s), Inhalation, q4hr Shortness of breath or wheezing, Refill(s) 0 Start Date: 09/02/19 Status: Ordered sucralfate 1000 mg oral tablet (2 sources) Aluminum Complex Start: 12-10-2024 End: 01-07-2025 take 1 tablet by mouth four times daily Carafate 1 gram Tab 1 gm = 1 tab(s), Oral, QID, X 28 day(s), # 112 tab(s), Refills(s) 0, Pharmacy: [id number], 158, cm, 12/10/24 8:44:00 EDT, Height/Length Dosing, 76.6, kg, 12/10/24 8:44:00 EDT, Weight Dosing Start Date: 12/10/24 Stop Date: 01/07/25 Status: Ordered Quantity: 112.0 Unit: tab(s) Repeat number: 1 Indications: Epigastric pain; Noninfective gastroenteritis and colitis, unspecified; Postcholecystectomy syndrome; Acquired absence of other specified parts of digestive tract; Adverse effect of other nonsteroidal anti-inflammatory drugs [NSAID], initial encounter; Anemia, unspecified; Start: 12-11-2019 sucralfate tab 1 gram = 1 tab(s), Oral, QIDACHS, Refills(s) 0 Start Date: 12/11/19 Status: Ordered Trelegy Ellipta (10 sources) Start: [...] puff(s), Inhalation, Daily, Refill(s) 0 Start Date: 12/6/23 Status: Ordered trelegy ellipta 200-62.5-25 mcg/act aerosol powder breath activated (9 sources) Start: 02-18-2023 take 1 puff(s) by inhalation once daily Trelegy Ellipta 200-62.5-25 MCG/ACT 1 puff Inhalation Once a day Feb, Active Start: 02-18-2023 take 1 puff(s) by in halation once daily Trelegy Ellipta 200-62.5-25 MCG/ACT 1 puff Inhalation Once a day for 30 days Feb, Active vit A/vit C/biotin/zinc/yazmin er ([id number],VIT A,C-BIOTIN, ORAL) (7 sources) vit A/vit C/biot in/zinc/copper (PMBE-NFPR-OUGO,VIT A,C-BIOTIN, ORAL) Take by mouth. Active Vitamin D3 (18 sources) Start: 05-14-2023 Vitamin D3 Oral, Daily, Refills(s) 0, Prophylaxis Start Date: 05/14/23 Status: Ordered Repeat number: 1 Start: 05-14-2023 Vitamin D3 Ora l, Daily, [...] 6 hours as needed for cough 200 August 09, 2023 3:54pm February 05, 2024 [...] (Other) doxycycline hyclate 100 mg oral capsule (15 sources) Tetracycline-class Drug Start: 06-21-2023 End: 02-05-2024 [...] apply pea sized amount to urethra 2x/wk, [facility], 158, cm, 02/05/24 11:08:00 EST, Height/Length Dosing, 62, kg, 02/05/24 11:08:00 EST, Weight Dosing Start Date: 02/05/24 Status: Ordered Quantity: 42.5 Unit: g Repeat number: 1 Start: 02-05-2024 Estradiol 0.01 % (0.1 mg/gram) cream Active 1 APPLICATOR VAGINAL Twice daily February 05, 2024 12:00am Start: 02-20-2023 estradiol (Est race) 0.1 MG/GM vaginal cream See Instructions, 42.5 gm, Refill(s) 0, apply pea sized amount to urethra 2x/wk, [facility], 158, cm, 02/20/23 8:48:00 EST, Height/Length Dosing, 68.5, kg, 02/20/23 8:48:00 EST, Weight Dosing 02/20/2023 Active Start: 02-20-2023 estradiol 0.1 mg/g Vag Crm See Instructions, 42.5 gm, Refill(s) 0, apply pea sized amount to urethra 2x/wk, [facility], 158, cm, 02/20/23 8:48:00 EST, Height/Length Dosing, 68.5, kg, 02/20/23 8:48:00 EST, Weight Dosing Start Date: 02/20/23 Status: Ordered Start: 04-13-2021 estradiol 0.1 mg/g vaginal cream See Instructions, Apply pea sized amount to external urethral 3 times a week for 2 weeks (at bedtime), then twice a week after for maintenance, # 42.5 gm, Refills(s) 1, [facility] [address], [address], cm, 04/13/21 9:47:00 EST, Height/Length [...] / nitrofurantoin, monohydrate 75 mg oral capsule (20 sources) Nitrofuran Antibacterial Start: 10-28-2024 Macrobid 100 mg Cap 100 mg = 1 cap(s), Oral, As Directed, take 1 tablet within 1 hour before or after intercourse to prevent infection., # 30 cap(s), Refills(s) 3, Pharmacy: [facility], 158, cm, 08/05/24 14:23:00 EDT, Height/Length Dosing, 77.2, kg, 08/05/24 14:23:00 EDT, Weight Dosing Start Date: 10/28/24 Status: Ordered Quantity: 30.0 Unit: cap(s) Repeat number: 4 Start: 12-01-2021 Macrobid 100 m g Cap 100 mg = 1 cap(s), Oral, As Directed, take 1 tablet within 1 hour before or after intercourse to prevent infection., # 30 cap(s), Refills(s) 3, Pharmacy: [facility], 158, cm, 02/20/23 8:48:00 [...] 20, 2018 11:00pm February 05, 2024 8:46am triamcinolone acetonide 40 mg/ml injectable suspension (20 sources) Corticosteroid Start: 10-10-2021 Kenalog-40 July, 40 mg Start: 05-25-2019 Kenalog -40 mg May, 40 mg Problems Active Problems Problem Classification Problem Date Documented Date Episodic/Chronic Abdominal pain (20 sources) Epigastric pain; Translations: [Epigastric pain] Onset: 07-25-19 24 12-11-2019 Episodic Acute and chronic tonsillitis (2 [...] [Asthma, unspecified, unspecified status] Onset: 09-28-19 16 Biliary tract disease (4 sources) Postcholecystectomy syndrome; 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] Onset: 08-06-19 25 Episodic Cataract (20 sources) Bilateral cataracts; Translations: [Artificial lens present] Onset: 08-28-19 23 09-04-2019 Chronic Chronic obstructive pulmonary disease and bronchiectasis (1 source) Bronchitis, not specified as acute or chronic Episodic Deficiency and other anemia (10 sources) Iron deficiency anemia due to blood [...] Onset: 05-14-19 Episodic Deficiency and other anemia (3 sources) Anemia; Translations: [Anemia, unspecified] Onset: 05-29-19 24 Episodic Deficiency and other anemia (1 source) Iron deficiency anemia, unspecified; Translations: [Iron deficiency anemia, unspecified] 02-05-2024 Episodic Diseases of white blood cells (11 sources) Familial eosinophilia; 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] Onset: [...] Onset: 05-14-19 Episodic Gastroduodenal ulcer (except hemorrhage) (20 sources) H/O: gastric ulcer; Translations: [H/O: peptic ulcer] Onset: 12-11-19 Resolved : 06-27-1908-31-2019 Episodic Genitourinary symptoms and ill-defined conditions (20 sources) Mixed incontinence; Translations: [Incontinence] Onset: 12-02-19 Chronic Genitourinary symptoms and ill-defined conditions (20 sources) Sensation as if bladder still full; Translations: [Feeling of incomplete bladder emptying] Onset: 12-02-19 Episodic Headache; including migraine (20 sources) Tension-type headache; Translations: [Tension-type headache, unspecified, not intractable] Onset: 01-12-20 Resolved : 06-27-1908-31-2019 Chronic Comment on above: Problem List clean-u p per request of Phys. EHR Cmte Hemorrhoids (2 sources) Hemorrhoids; Translations: [Other hemorrhoids] Onset: 05-30-19 Episodic Inflammation; infection of eye (except that caused by tuberculosis or sexually transmitteddisease) (13 sources) Keratoconjunctivitis sicca; Translations: [Keratoconjunctivitis sicca, not [...] other genitourinary organ] Onset: 02-24-20 24 Episodic Noninfectious gastroenteritis (4 sources) Noninfectious enteritis; Translations: [Noninfective gastroenteritis and colitis, unspecified] Onset: 08-06-19 25 Episodic Nonmalignant breast conditions (11 sources) Fibrocystic disease of breast; Translations: [Diffuse [...] Onset: 04-09-19 23 Chronic Other acquired deformities (11 sources) Equinus contracture of the ankle; Translations: [Contracture, right ankle] Onset: 06-27-19 24 06-27-2023 Chronic Other aftercare (1 source) 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; Translations: [RESIDENTIAL CURRENT USE OF ASPIRIN] Onset: 04-09-19 23 Episodic Other aftercare (3 sources) 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; Translations: [OTH RESIDENTIAL CURRENT DRUG THERAPY] Onset: 03-13-20 22 Episodic Other aftercare (1 source) Long-term current use of drug therapy; Translations: [Other detention (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 therapy] Episodic Other and unspecified benign neoplasm (20 sources) History of polyp of colon; Translations: [History of colonic polyps] Onset: 06-27-19 24 09-04-2019 Episodic Other bone disease and musculoskeletal deformities (20 sources) Osteopenia; Translations: [Other specified disorders of bone density and structure, unspecified site] Onset: 06-27-19 24 08-31-2019 Episodic Other bone disease and musculoskeletal [...] caruncle] Onset: 12-02-19 Episodic Other diseases of bladder and urethra (8 sources) Urethral intrinsic sphincter deficiency; Translations: [Intrinsic sphincter deficiency (ISD)] Onset: 02-24-20 Episodic Other diseases of kidney and ureters (1 source) Vesicoureteric reflux; Translations: [Vesicoureteral-reflux, unspecified] Onset: 05-14-19 24 Episodic Other disorders of stomach and duodenum (20 sources) Stricture of duodenum; Translations: [Obstruction of duodenum] Onset: 06-27-19 24 09-04-2019 Chronic Other gastrointestinal disorders (2 sources) Irritable bowel syndrome characterized by constipation; Translations: [Irritable bowel syndrome with constipation] Chronic Other gastrointestinal disorders (20 sources) Abdominal bloating; Translations: [Abdominal distension (gaseous)] Onset: 07-25-19 24 12-11-2019 Episodic Other gastrointestinal disorders (1 source) Oropharyngeal dysphagia; Translations: [Dysphagia, oropharyngeal phase] Episodic Other gastrointestinal disorders (1 source) Dysphagia, oropharyngeal phase; Translations: [Dysphagia, oropharyngeal phase] Episodic Other gastrointestinal disorders (2 sources) H/O: gastrointestinal disease; Translations: [Personal history of other diseases of the digestive system] Onset: 05-14-19 Episodic Other gastrointestinal disorders (1 source) Non-steroidal anti-inflammatory drug-induced enteropathy; Translations: [Disease of intestine, unspecified] 07-27-2024 Episodic Other inflammatory condition of skin (1 [...] of falling] Episodic Other lower respiratory disease (11 sources) Post-inflammatory pulmonary fibrosis; Translations: [Pulmonary fibrosis, [...] Overweight; Translations: [Overweight] Episodic Other skin disorders (13 sources) Lichen sclerosus et atrophicus; Translations: [Circumscribed [...] disorders of Eustachian tube, unspecified ear] Episodic Poisoning by other medications and drugs (4 sources) Non-steroidal anti-inflammatory drug adverse reaction; Translations: [Adverse effect of other nonsteroidal anti-inflammatory drugs [NSAID], initial encounter] Onset: 08-06-1908-05-2024 Episodic Regional enteritis and ulcerative colitis (11 sources) Ulcerative colitis; Translations: [Ulcerative colitis, unspecified, without complications] Onset: 03-18-19 08 06-27-2023 Chronic Residual codes; unclassified (1 source) Acquired absence of other specified parts of digestive tract; Translations: [ACQ ABSENCE OTH PART DIGESTV TRACT] Onset: 04-09-19 Episodic Residual codes; unclassified (1 source) Asymptomatic menopausal state Episodic Residual codes; unclassified (2 sources) Postmenopausal state; Translations: [Asymptomatic menopausal state] 04-16-2024 Episodic Residual codes; unclassified (3 sources) Acquired absence of organ; Translations: [Acquired absence of other specified parts of digestive tract] Onset: 08-06-19 Episodic Spondylosis; intervertebral disc disorders; other back [...] [Graves' disease] Onset: 01-30-20 22 08-31-2019 Chronic Comment on above: Problem List clean-u p per request of Phys. EHR Cmte Unclassified (20 sources) Asymptomatic microscopic hematuria 12-01-2021 Unclassified (20 sources) Finding of sensation of bladder 04-13-2021 [...] ankle and foot] Onset: 11-19-19 16 Unclassified (13 sources) Stricture of small intestine 08-15-2023 Unclassified (2 sources) New Patient Visit; Translations: [New Patient Visit] Onset: 09-14-19 24 Unclassified (5 sources) Lesion of urethra 04-22-2024 Urinary tract infections (20 sources) Urinary tract infectious disease; Translations: [Urinary tract infection, site not specified] Onset: 12-02-19 Resolved : 06-27-19 Episodic Past or Other Problems Problem Classification Problem Date Documented Date Episodic/Chronic Bacterial infection; unspecified site (1 source) [...] that caused by tuberculosis or sexually transmitteddisease) (13 sources) 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; Translations: [Unspecified blepharitis right eye, upper and lower eyelids] Onset: 3 01-14-2023 Episodic Intestinal obstruction without hernia (6 sources) Stricture of intestine; Translations: [Other intestinal obstruction unspecified as to partial versus complete obstruction] Onset: 4 Episodic Menopausal disorders (1 source) Hormone replacement therapy; Translations: [HORMONE REPLACEMENT THERAPY] Onset: 2 Episodic Nonspecific chest pain (2 sources) Chest pain; Translations: [Other chest pain] Onset: 7 Episodic Other bone disease and [...] Onset: 6 Episodic Other connective tissue disease (20 sources) Right achilles tendonitis; Translations: [Achilles tendinitis, right leg] Onset: 7 04-11-2016 Episodic Other gastrointestinal disorders (11 sources) Dysphagia; Translations: [Dysphagia, pharyngoesophageal phase] Onset: 4 06-27-2023 Episodic Other injuries and conditions due to external causes (11 sources) Aspiration into respiratory tract; Translations: [Unspecified foreign body in respiratory tract, part unspecified causing other injury, initial encounter] Onset: 4 07-25-2023 Episodic Other lower respiratory disease (16 sources) Chronic cough; Translations: [Chronic cough] Onset: 4 Episodic Other lower respiratory disease (11 sources) Lung field abnormal; Translations: [Other nonspecific [...] Onset: 5 Episodic Other upper respiratory disease (11 sources) Chronic hoarseness; Translations: [Dysphonia] Onset: 4 06-27-2023 Episodic Other upper respiratory disease (11 sources) Stridor; Translations: [Stridor] Onset: 4 06-27-2023 Episodic Residual codes; unclassified (1 source) Family history of malignant neoplasm of breast; Translations: [FAMILY HX MALIG NEOPLASM OF BREAST] Onset: 2 Episodic Residual codes; unclassified (1 source) Family history of malignant neoplasm of other organs or systems; Translations: [FAM HX MALIG NEOPLASM OTH ORGN/SYS] Onset: 2 Episodic Unclassified (1 source) Onset: 4 09-14-2023 Results Test Name Value Interpretation Reference Range Facility Ambulatory Visit Summaryon 0 12-10-2024 Ambulatory Visit Summary Ambulatory Visi t Summary MUNIRA CHESTER :1950 Visit Date:12/10/2024 Ambulatory Visit Instructions Your Diagnosis Postprandial diarrhea Anemia Post-cholecystectomy syndrome Adverse reaction to NSAIDs Hx of cholecystectomy Epigastric pain Your Care Team Attending Physician - Tho VILLEGAS, Del Duckworth Primary Care Physician - BALL DO, ANDREA This Is Your Medications List sucralfate (Carafate 1 gram Tab) Contact prescribing physician if questions or concerns albuterol (ProAir HFA 90 mcg/inh inhalation aerosol) alendronate (Fosamax 70 mg Tab) amlodipine (amLODIPine 5 mg Tab) atorvastatin (atorvastatin 10 mg Tab) biotin (Hair, Skin & Nails 5 mg oral capsule) cetirizine (Zyrtec) cholecalciferol (Vitamin D3) cholestyramine (Questran 4 g/9 g oral powder) epinephrine (EpiPen 2-Giovani) estradiol topical (estradiol 0.1 mg/g Vag Crm) famotidine (famotidine 20 mg Tab) fluticasone nasal (Xhance 93 mcg/inh nasal spray) fluticasone nasal (fluticasone 0.05 mg/inh Nasal [place]) fluticasone-vilanterol (Breo Ellipta 200 mcg-25 mcg/inh inhalation powder) levothyroxine (levothyroxine 100 mcg (0.1 mg) Tab) montelukast (montelukast 10 mg Tab) multivitamin (Multi Vitamins oral tablet) nitrofurantoin (Macrobid 100 mg Cap) orphenadrine (orphenadrine compounding powder) pantoprazole (Pantoprazole [address] Tab) Procedures Performed Cystoscopy (06/02/2024), Cystoscopy (04/07/2024), Colonoscopy (05/22/2023), Esophagogastroduodenoscop y (05/22/2023), Colonoscopy (09/07/2019), EGD - Esophagogastroduodenoscop y (09/07/2019), Colonoscopy (01/16/2015), EGD - Esophagogastroduodenoscop y (01/16/2015), EGD - Esophagogastroduodenoscop y (08/17/2011), EGD - Esophagogastroduodenoscop y (05/17/2011), Laparoscopic cholecystectomy (06/16/2010), Colonoscopy (01/16/2010), Cataracts, section, Dilation and curettage, Foot, Right wrist, Rotator cuff repair, Thyroidectomy, Tubal ligation. Discharge Vitals Heart Rate (Peripheral) 70 Blood Pressure 118/77 Height 158 cm Height 62 in Weight 76.6 kg Weight 168.874 lb BMI 30.68 Medications What How Much When Why Instructions New sucralfate (Carafate 1 gram Tab) 1 Tablets By Mouth 4 times a day Postprandial diarrhea Anemia Post-cholecystectomy syndrome Adverse reaction to NSAIDs Hx of cholecystectomy Epigastric pain Duration: 28 Days Pickup at [facility] Unchanged albuterol (ProAir HFA 90 mcg/ inh [...] if questions or concerns Unchanged cetirizine (Zyrtec) By Mouth Every day Contact prescribing physician if questions or concerns Unchanged cholecalciferol (Vitamin D3) By Mouth Every day Contact prescribing physician if questions or concerns Unchanged cholestyramine (Questran 4 g/ 9 g oral powder) 1 Packets By Mouth Every day Postprandial diarrhea Hx of cholecystectomy Adverse reaction to NSAIDs S/P cholecystectomy Post-cholecystectomy syndrome Contact prescribing physician if questions or concerns Unchanged epinephrine (EpiPen 2-Giovani) 0.3 Milligram Intramuscular Once as needed for Anaphylaxis Contact prescribing physician if questions or concerns Unchanged estradiol topical (estradiol 0.1 mg/ g Vag Crm) See instructions apply pea sized amount to urethra 2x/ wk Contact prescribing physician if questions or concerns Unchanged famotidine (famotidine 20 mg Tab) 1 Tablets By Mouth 2 times a day Contact prescribing physician if questions or concerns Unchanged fluticasone nasal (fluticasone 0.05 mg/ inh Nasal [place]) 2 Sprays Nasal Inhalation Every day Contact prescribing physician if questions or concerns Unchanged fluticasone nasal (Xhance 93 mcg/ inh nasal spray) 2 times a day Contact prescribing physician if questions or concerns Unchanged fluticasone-vilanterol (Breo Ellipta 200 mcg-25 mcg/ inh inhalation powder) 1 Inhalation Inhalation Every day Contact prescribing physician if [...] 1 Tablets By Mouth Every day Contact pres (more content not included)... Normal [facility] Gastroenterology Office/Clin ic Noteon 12-10-2024 Gastroenterology Office/Clinic Note Gastroenterology Office/Clinic Note Chief Complaint Patient would like to switch from Questra to capsules. Colestid? HPI Staff EST, 74 year old female who presents today for a 3 month follow up. Intermittent epigastric pain Last visit 08/05/24 w/ Dr Nettles History of Present Illness PT is doing well pt gets diarrhea after eating anayeli long time ago (>10 years) some incontinence Assessment/Plan 1. Postprandial diarrhea (K52.9: Noninfective gastroenteritis and colitis, unspecified) 2. Hx of cholecystectomy, (Z90.49: Acquired absence of other specified parts of digestive tract)S/P 3. Adverse reaction to NSAIDs (T39.395A: Adverse effect of other nonsteroidal anti-inflammatory drugs [NSAID], initial encounter) 5. 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) Anemia (D64.9: Anemia, unspecified) Prescribe Questran 4 g every other day and increase the frequency to once a day or twice a day Advised to avoid NSAIDs Might benefit from stool tests if Questran does not work Might benefit from neuromodulator in the future History of Present Illness I have reviewed HPI staff note, most recent labs and imaging, I agree with the above documentation with the following additions/exceptions : pt with pain in the epigastric area Benefiber, yogurt,helps could not take Questran some pain after eating 1-2 times a week can not eat roughage was treated with z-pack for GI bacteria at [facility] back pain Review of Systems PHQ Score Initial Depression Screen Score: 0 SCORE All systems reviewed, negative except as mentioned above Physical Exam Vitals & Measurements HR: 70(Peripheral) BP: 118/77 HT: 62 in HT: 158 cm WT: 168.874 lb WT: 76.6 kg BMI: 30.68 General: alert, no acute distress HEENT: atraumatic normocephalic Cardiovascular: regular rate and rhythm, normal peripheral perfusion Respiratory: Lungs CTA, respirations non labored Extremities: no deformity, no trauma Abdomen: Benign, soft, nontender nondistended Assessment/Plan 1. Postprandial diarrhea (K52.9: Noninfective gastroenteritis and colitis, unspecified) Ordered: sucralfate, 1 gm = 1 tab(s), Oral, QID, X 28 day(s), # 112 tab(s), Refills(s) 0, Pharmacy: [facility], 158, cm, 12/10/24 8:44:00 EDT, Height/Length Dosing, 76.6, kg, 12/10/24 8:44:00 EDT, Weight Dosing Current tobacco non-user 1036F Most recent diastolic blood pressure <80 mm Hg 3078F Systolic BP <130 mm Hg (Most Recent) 3074F 2. Anemia (D64.9: Anemia, unspecified) Ordered: sucralfate, 1 gm = 1 tab(s), Oral, QID, X 28 day(s), # 112 tab(s), Refills(s) 0, Pharmacy: [facility], 158, cm, 12/10/24 8:44:00 EDT, Height/Length Dosing, 76.6, kg, 12/10/24 8:44:00 EDT, Weight Dosing Current tobacco non-user 1036F Most recent diastolic blood pressure <80 mm Hg 3078F Systolic BP <130 mm Hg (Most Recent) 3074F 3. 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 Adverse reaction to NSAIDs (T39.395A: Adverse effect of other nonsteroidal anti-inflammatory drugs [NSAID], initial encounter) Ordered: sucralfate, 1 gm = 1 tab(s), Oral, QID, X 28 day(s), # 112 tab(s), Refills(s) 0, Pharmacy: [facility], 158, cm, 12/10/24 8:44:00 EDT, Height/Length Dosing, 76.6, kg, 12/10/24 8:44:00 EDT, Weight Dosing Current tobacco non-user 1036F Most recent diastolic blood pressure <80 mm Hg 3078F Systolic BP <130 mm Hg (Most Recent) 3074F 5. Hx of cholecystectomy (Z90.49: Acquired absence of other specified parts of digestive tract) Ordered: sucralfate, 1 gm = 1 tab(s), Oral, QID, X 28 day(s), # 112 tab(s), Refills(s) 0, Pharmacy: [facility], 158, cm, 12/10/24 8:44:00 EDT, Height/Length Dosing, 76.6, kg, 12/10/24 8:44:00 EDT, Weight Dosing Current tobacco non-user 1036F Most recent diastolic blood pressure <80 mm Hg 3078F Systolic BP <130 mm Hg (Most Recent) 3074F 6. Epigastric pain (R10.13: Epigastric pain) Ordered: sucralfate, 1 gm = 1 tab(s), Oral, QID, X 28 day(s), # 112 tab(s), Refills(s) 0, Pharmacy: [facility], 158, cm, 12/10/24 8:44:00 EDT, Height/Length Dosing, 76.6, kg, 12/10/24 8:44:00 EDT, Weight Dosing Continue yogurt and fiber supplementation Patient could not tolerate Questran???might consider WelChol in future Start on Carafate 1 g 4 times daily Continue Protonix 4 mg daily Will benefit from neuromodulator in the future Advised to follow-up with PCP to discuss treating chronic pain with nonopioid options such as neuromodulators, tramadol, or other medications other than NS (more content not included)... Normal [facility] Comment on above: Result Comment: Elec tronically Signed By: Tho VILLEGAS, Del Duckworth\.br\Date and Time Signed: 12/10/24 09:09 EDT Ambulatory Visit Summaryon 0 08-05-2024 Ambulatory Visit Summary Ambulatory Visi t Summary MUNIRA CHESTER :1950 Visit Date:08/05/2024 Ambulatory Visit Instructions Your Diagnosis Postprandial diarrhea Hx of cholecystectomy, S/P cholecystectomy Adverse reaction to NSAIDs Post-cholecystectomy syndrome Anemia Your Care Team Attending Physician - Tho VILLEGAS, Del Duckworth Primary Care Physician - ANDREA GOLDEN DO This Is Your Medications List cholestyramine (Questran 4 g/9 g oral powder) Contact prescribing physician if questions or concerns Radha albuterol (ProAir HFA 90 mcg/inh inhalation aerosol) [...] spray) fluticasone nasal (fluticasone 0.05 mg/inh Nasal [place]) fluticasone-vilanterol (Breo Ellipta 200 mcg-25 mcg/inh inhalation powder) levothyroxine (levothyroxine 100 mcg (0.1 mg) Tab) montelukast (montelukast 10 mg Tab) multivitamin (Multi Vitamins oral tablet) nitrofurantoin (Macrobid 100 mg Cap) orphenadrine (orphenadrine compounding powder) pantoprazole (Pantoprazole [address] Tab) Procedures Performed Cystoscopy (06/02/2024), Cystoscopy (04/07/2024), Colonoscopy (05/22/2023), Esophagogastroduodenoscop y (05/22/2023), Colonoscopy (09/07/2019), EGD - Esophagogastroduodenoscop y (09/07/2019), Colonoscopy (01/16/2015), EGD - Esophagogastroduodenoscop y (01/16/2015), EGD - Esophagogastroduodenoscop y (08/17/2011), EGD - Esophagogastroduodenoscop y (05/17/2011), Laparoscopic cholecystectomy (06/16/2010), Colonoscopy (01/16/2010), Cataracts, section, Dilation and curettage, Foot, Right wrist, Rotator cuff repair, Thyroidectomy, Tubal ligation. Discharge Vitals Heart Rate (Peripheral) 82 Respiratory Rate 14 Blood Pressure 127/82 Height 158 cm Height 62 in Weight 77.2 kg Weight 170.197 lb BMI 30.92 Medications What How Much When Why Instructions New cholestyramine (Questran 4 g/ 9 g oral powder) 1 Packets By Mouth Every day Postprandial diarrhea Hx of cholecystectomy Adverse reaction to NSAIDs S/P cholecystectomy Post-cholecystectomy syndrome Refills: 3 Pickup at [facility] Unchanged albuterol (ProAir HFA 90 mcg/ [...] if questions or concerns Unchanged cetirizine (Zyrtec) By Mouth Every day Contact prescribing physician if questions or concerns Unchanged cholecalciferol (Vitamin D3) By Mouth Every day Contact prescribing physician if questions or concerns Unchanged epinephrine (EpiPen 2-Giovani) 0.3 Milligram Intramuscular Once as needed for Anaphylaxis Contact prescribing physician if questions or concerns Unchanged estradiol topical (estradiol 0.1 mg/ g Vag Crm) See instructions apply pea sized amount to urethra 2x/ wk Contact prescribing physician if questions or concerns Unchanged famotidine (famotidine 20 mg Tab) 1 Tablets By Mouth 2 times a day Contact prescribing physician if questions or concerns Unchanged fluticasone nasal (fluticasone 0.05 mg/ inh Nasal [place]) 2 Sprays Nasal Inhalation Every day Contact prescribing physician if questions or concerns Unchanged fluticasone nasal (Xhance 93 mcg/ inh nasal spray) 2 times a day Contact prescribing physician if questions or concerns Unchanged fluticasone-vilanterol (Breo Ellipta 200 mcg-25 mcg/ inh inhalation powder) 1 Inhalation Inhalation Every day Contact prescribing physician if questions or concerns Unchanged Radha See instructions drink BID Contact prescribing physician if questions or concerns [...] prescribing physician if questions or concerns Unchanged nitrofurantoin (Macrobid 100 mg Cap) 1 Capsules By Mouth As Directed take 1 tablet within 1 hour before or after (more content not included)... Normal [facility] Gastroenterology Office/Clin ic Noteon 08-05-2024 Gastroenterology Office/Clinic Note Gastroenterology Office/Clinic Note Chief Complaint follow up to endo HPI Staff This is a 74 year old female who presents today for a follow up to enteroscopy Last office visit w/ Dr Nettles History of Present Illness Pt underwent capsule endoscope and the capsule was stuck in small bowel stricture she passed the capsule a week later Still anemic concerned about asthma attack since she had allergic reaction to dye Assessment/Plan 1. Anemia (D64.9: Anemia, unspecified) 2. [...] unspecified as to partial versus complete obstruction) Continue iron supplementations Patient would like to [...] under good control before making a decision Enteroscopy w/ Dr Fallon 07/13/24 Impression: -One 8 mm polyp at the hepatic flexure, removed with a cold snare. Resected and retrieved. 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 Crohn's disease is another consideration, but overall appearance and lack of additional ulcers make this less likely. The narrowest stricture was dilated with a 10-11-12mm x5.5 cm CRE balloon. Biopsied. Tattooed on the downstream side of the most downstream stricture. Recommendations: -Repeat colonoscopy in 5 years to follow up colon polyp Final Diagnosis: A. Mild ileal stricture, biopsy: -Small bowel mucosa with ulcer -Negative for dysplasia or granulomas B. Ileum, biopsy: -Small bowel mucosa with no significant pathologic changes. C. Terminal ileum, biopsy: -Small bowel mucosa with no significant pathologic changes. D. Hepatic flexure, polypectomy: -Fragments of tubular adenoma Capsule 07/17/23 -First Gastric image: :00:32 -First [...] staff note, most recent labs and imaging, I agree with the above documentation with the following additions/exceptions : PT is doing well pt gets diarrhea after eating anayeli long time ago (>10 years) some incontinence Review of Systems PHQ Score Initial Depression Screen Score: 0 SCORE All systems reviewed, negative except as mentioned above Physical Exam Vitals & Measurements HR: 82(Peripheral) RR: 14 BP: 127/82 HT: 62 in HT: 158 cm WT: 170.197 lb WT: 77.2 kg BMI: 30.92 General: alert, no acute distress HEENT: atraumatic normocephalic Cardiovascular: regular rate and rhythm, normal peripheral perfusion Respiratory: Lungs CTA, respirations non labored Extremities: no deformity, no trauma Abdomen: Benign, soft, nontender nondistended Assessment/Plan 1. Postprandial diarrhea (K52.9: Noninfective gastroenteritis and colitis, unspecified) Ordered: cholestyramine, = 1 packet(s), Oral, Daily, # 30 EA, Refills(s) 3, Pharmacy: [facility], 158, cm, 08/05/24 14:23:00 EDT, Height/Length Dosing, 77.2, kg, 08/05/24 14:23:00 EDT, Weight Dosing 2. Hx of cholecystectomy, (Z90.49: Acquired absence of other specified parts of digestive tract)S/P cholecystectomy Ordered: cholestyramine, = 1 packet(s), Oral, Daily, # 30 EA, Refills(s) 3, Pharmacy: [facility], 158, cm, 08/05/24 14:23:00 EDT, Height/Length Dosing, 77.2, kg, 08/05/24 14:23:00 EDT, Weight Dosing 3. Adverse reaction to NSAIDs (T39.395A: Adverse effect of other nonsteroidal anti-inflammatory drugs [NSAID], initial encounter) Ordered: cholestyramine, = 1 packet(s), Oral, Daily, # 30 EA, Refills(s) 3, Pharmacy: [facility], 158, cm, 08/05/24 14:23:00 EDT, Height/Length Dosing, 77.2, kg, 08/05/24 14:23:00 EDT, Weight Dosing 5. Post-cholecystectomy syndro (more content not included)... [facility] Comment on above: Result Comment: Elec tronically Signed By: Tho VILLEGAS, Del Duckworth\.br\Date and Time Signed: 08/05/24 14:45 EDT Reminderson 08-05-2024 Reminders Reminders From: Pat Martinez MA To: [facility] - Reminders/Recalls; Sent: 08/05/2024 13:08:13 EDT Show up: 05/16/2029 13:08:00 EST Subject: Ambulatory Reminder Due Date/Time: 07/13/2029 13:08:00 EDT Reminder/Recall 5 year colon 07/13/24 Dr Nettles [facility] ANES POSTPROC EVALon 025 ANES POSTPROC EVAL HNO ID: [id number] Author: LUZ ELENA FRANKLIN MD Service: ? Author Type: Physician Type: Anesthesia Postprocedure Evaluation Filed: 07/13/2024 16:29 Note Text: POST ANESTHESIA EVALUATION NOTE : 1950 Procedure Summary Date: 07/13/24 Room / Location: Gastroenterology Anesthesia Start: 1339 Anesthesia Stop: 1521 Procedure: ENTEROSCOPY Diagnosis: Iron deficiency anemia due to chronic blood loss Abnormal finding on GI tract imaging (Abnormal video capsule endoscopy) Scheduled Providers: Kasey Fallon MD; Rosaura Marie APRN.CRNA; Luz Elena Franklin MD Responsible Provider: Luz Elena Franklin MD Anesthesia Type: general ASA Status: 2 Anesthesia Type: general Airway Type: ETT Last Vitals Vitals Value Taken Time BP 136/84 07/13/24 1550 Temp 36.5 ?C (97.7 ?F) 07/13/24 1520 HR SpO2 71 07/13/24 1555 Resp 18 07/13/24 1520 SpO2 92 % 07/13/24 1555 Vitals shown include unfiled device data. Post Anesthesia Patient Status Patient Evaluation: bedside. Anticipated Disposition: phase 2 then home. Neurological Status: aware and responsive. Pulmonary Status: breathing comfortably on room air Airway Control: returned to baseline unsupported. Cardiovascular Status: stable. Pain Management: clinically adequate Postoperative Hydration: acceptable. Intraoperative Events: no significant anesthesia events Post Operative Nausea/Vomiting Status: no significant post operative nausea or vomiting Recommendation: continue current plan of care. Anesthesia Observations No Documentation SIGNATURE: Luz Elena Franklin MD PATIENT NAME: Munira Chester DATE: July 13, 2024 TIME: 4:28 PM CSN: [id number] [facility] ANES PRE-OPon 07-13-2024 ANES PRE-OP HNO ID: [id number] Author: LUZ ELENA FRANKLIN MD Service: ? Author Type: Physician Type: Anesthesia Preprocedure Evaluation Filed: 07/13/2024 13:38 Note Text: ANESTHESIOLOGY DAY OF SURGERY NOTE : 1950 Procedure Information Date/Time: 07/13/24 1300 Scheduled providers: Kasey Fallon MD; Rosaura Marie APRN.CHAIN SAW OPERATOR; Luz Elena Franklin MD Procedure: ENTEROSCOPY Location: Gastroenterology Estimated body mass index is 29.23 kg/m? as calculated from the following: Height as of this encounter: 160 cm (5' 3 ). Weight as of this encounter: 74.8 kg (165 lb). Most recent hematocrit and potassium results: No results found for this basename: HCT,HEMATOCRIT,K,POTASSIU M Relevant Problems NEURO-PSYCH (+) Episodic tension-type headache, not intractable I - PHYSICAL EVALUATION AIRWAY Patient intubated: No. Tracheostomy tube not present Mallampati: III. TM distance: >3 FB. Neck ROM: full ROM without neurological symptoms. Mouth opening: adequate. Short neck: no. Thick neck: no Microretrognathia/Microna gthia/Recessed Chin: No DENTAL Dental findings: teeth intact. II - ANESTHESIA PLAN ASA Score: 2 Anesthetic Plan: general Airway type: ETT The patient is not a current smoker. NPO Status: adequate Beta Beau Monitoring Plan Monitoring plan: standard ASA. Post Procedure Analgesic Plan Postoperative analgesic plan: multimodal analgesia. Informed Consent Anesthetic risks, benefits, alternatives, personnel and consent discussed: yes. Patient / Responsible Republican agrees to proceed: yes Patient / Surrogate agrees to blood products: Yes DNR status not reviewed with patient and/or family prior to surgery. Significant changes in the patient condition since the History and Physical, not otherwise documented in primary service progress note: no. Potential Anesthesia issues that may suggest increased risk of complications or contraindication to planned procedure: none. Vitals Value Taken Time BP 146/67 07/13/24 1252 Pulse 77 07/13/24 1252 Resp 18 07/13/24 1252 Temp 36.3 ?C (97.3 ?F) 07/13/24 1252 SpO2 96 % 07/13/24 1252 Outpatient Medications as of 07/13/2024 Medication Sig amLODIPine (NORVASC) 5 mg tablet Take by mouth once daily. Cetirizine 10 mg cap Take by mouth. famotidine (PEPCID) 20 mg tablet Take 20 mg by mouth two times a day. iron polysaccharide complex (FERREX 150 ORAL) Take by mouth every other day. codeine phosphate/guaifenesin (CODEINE-GUAIFENESIN ORAL) Take by mouth. pantoprazole DR (PROTONIX) 40 mg tablet Take 40 mg by mouth two times a day. fluticasone propionate (XHANCE) 93 mcg/actuation nasal spray Use in each nostril two times a day. nitrofurantoin macrocrystal (MACRODANTIN) 100 mg capsule 100 mg by ORAL/FEEDING TUBE route. betamethasone valerate 0.1 % cream Apply to affected area. cholecalciferol, vitamin D3, (D3-2000 ORAL) Take by mouth. calcium carbonate/vitamin D3 (CALCIUM + D ORAL) Take by mouth. iron bis-glycinat/vit C/FA/B12 (GENTLE IRON ORAL) Take by mouth. mv-min/iron/folic/calcium /vitK (WOMEN'S MULTIVITAMIN ORAL) Take by mouth. vit A/vit C/biotin/zinc/copper (UASG-SQNZ-MYFH,VIT A,C-BIOTIN, ORAL) Take by mouth. aspirin 325 mg cap Take by mouth. Ibuprofen 200 mg cap Take by mouth every 6 hours as needed. acetaminophen (TYLENOL) 325 mg tablet Take 650 mg by mouth every 6 hours as needed. peg 3350-Electrolytes (GOLYTELY) 236-22.74-6.74 -5.86 gram suspension Add water to powder in the jug up to the fill line. Starting at 6pm the evening before the colonsocopy, drink 8 oz every 15 minutes until half to three quarters of the jug is consumed AND returns are clear. Take a break. Finish the remainder of the jug 4 hours before your procedure. fluticasone-vilanterol (BREO ELLIPTA) 100-25 mcg/dose inhaler Inhale 1 Inhalation as instructed once daily. EPINEPHrine (EPIPEN) 0.3 mg/0.3 mL auto-injector Inject 0.3 mg intramuscularly as needed. fluticasone (FLONASE) 50 mcg/actuation nasal spray Use 1 [place] in each nostril once daily. atorvastatin (LIPITOR) 10 mg tablet Take 10 mg by mouth once daily. albuterol HFA (PROAIR HFA) 90 mcg/actuation inhaler Inhale 2 Puffs as instructed. montelukast (SINGULAIR) 10 mg tablet Take 10 mg by mouth daily at bedtime. alendronate (FOSAMAX) 70 mg tablet Take 70 mg by mouth once each week. metroNIDAZOLE (METROGEL) 0.75 % Vaginal Gel Use 1 Applicatorful vaginally daily at bedtime. Estradiol (VAGIFEM) 10 mcg tab vaginal tablet Use 10 mcg vaginally once daily. orphenadrine ER (NORFLEX) 100 mg tablet Two tablets daily as needed levothyroxine sodium(SYNTHROID 100 MCG TAB) Take one(1) tablet daily. No current facility-administered medications on file as of 07/13/2024. I have interviewed and examined the patient. I have reviewed the medical record and/or the pre-anesthesia evaluation, pertinent labs, and test results. This contains updated information obtained within 48 hours of Surgery/Pr (more content not included)... [facility] Enteroscopy Study observatio n Narrativeon 07-13-2024 [facility] Radiology Study observation (narrative) [facility] HISTORY PHYSICALon HISTORY PHYSICAL HNO ID: [id number] Author: KASEY FALLON MD Service: Gastroenterology Author Type: Physician Type: H&P Filed: 07/13/2024 13:45 Note Text: GI PROCEDURAL HISTORY AND PHYSICAL EXAM PLANNED PROCEDURE Rectal DBE ASSESSMENT Distal ileal strictures SUBJECTIVE HPI: This is a 73 year old female who presents with Hx of NSAID dependence and iron deficiency. Now with SBO symptoms. Capsule study showing ileal strictures and very slow distal small bowel transit on small bowel series Last oral intake: No solids within 8 hours. No clear liquids within 2 hours. PAST ANESTHESIA HISTORY: No history of adverse anesthesia event PAST MEDICAL HISTORY: PAST MEDICAL HISTORY Diagnosis Date Asthma (HCC) Degeneration of cervical intervertebral disc Esophageal reflux Other forms of migraine Toxic diffuse goiter without mention of thyrotoxic crisis or storm Ulcerative colitis, unspecified Unspecified essential hypertension PAST SURGICAL HISTORY: History reviewed. No pertinent surgical history. CURRENT MEDICATIONS: Prior to Admission medications as of 07/13/24 1248 Medication Sig Last Dose Taking amLODIPine (NORVASC) 5 mg tablet Take by mouth once daily. Cetirizine 10 mg cap Take by mouth. famotidine (PEPCID) 20 mg tablet Take 20 mg by mouth two times a day. iron polysaccharide complex (FERREX 150 ORAL) Take by mouth every other day. codeine phosphate/guaifenesin (CODEINE-GUAIFENESIN ORAL) Take by mouth. pantoprazole DR (PROTONIX) 40 mg tablet Take 40 mg by mouth two times a day. fluticasone propionate (XHANCE) 93 mcg/actuation nasal spray Use in each nostril two times a day. nitrofurantoin macrocrystal (MACRODANTIN) 100 mg capsule 100 mg by ORAL/FEEDING TUBE route. betamethasone valerate 0.1 % cream Apply to affected area. cholecalciferol, vitamin D3, (D3-2000 ORAL) Take by mouth. calcium carbonate/vitamin D3 (CALCIUM + D ORAL) Take by mouth. iron bis-glycinat/vit C/FA/B12 (GENTLE IRON ORAL) Take by mouth. mv-min/iron/folic/calcium /vitK (WOMEN'S MULTIVITAMIN ORAL) Take by mouth. vit A/vit C/biotin/zinc/copper (BOCI-SRRT-NKWW,VIT A,C-BIOTIN, ORAL) Take by mouth. aspirin 325 mg cap Take by mouth. Ibuprofen 200 mg cap Take by mouth every 6 hours as needed. acetaminophen (TYLENOL) 325 mg tablet Take 650 mg by mouth every 6 hours as needed. peg 3350-Electrolytes (GOLYTELY) 236-22.74-6.74 -5.86 gram suspension Add water to powder in the jug up to the fill line. Starting at 6pm the evening before the colonsocopy, drink 8 oz every 15 minutes until half to three quarters of the jug is consumed AND returns are clear. Take a break. Finish the remainder of the jug 4 hours before your procedure. fluticasone-vilanterol (BREO ELLIPTA) 100-25 mcg/dose inhaler Inhale 1 Inhalation as instructed once daily. EPINEPHrine (EPIPEN) 0.3 mg/0.3 mL auto-injector Inject 0.3 mg intramuscularly as needed. fluticasone (FLONASE) 50 mcg/actuation nasal spray Use 1 [place] in each nostril once daily. atorvastatin (LIPITOR) 10 mg tablet Take 10 mg by mouth once daily. albuterol HFA (PROAIR HFA) 90 mcg/actuation inhaler Inhale 2 Puffs as instructed. montelukast (SINGULAIR) 10 mg tablet Take 10 mg by mouth daily at bedtime. alendronate (FOSAMAX) 70 mg tablet Take 70 mg by mouth once each week. metroNIDAZOLE (METROGEL) 0.75 % Vaginal Gel Use 1 Applicatorful vaginally daily at bedtime. Estradiol (VAGIFEM) 10 mcg tab vaginal tablet Use 10 mcg vaginally once daily. orphenadrine ER (NORFLEX) 100 mg tablet Two tablets daily as needed levothyroxine sodium(SYNTHROID 100 MCG TAB) Take one(1) tablet daily. ALLERGIES: ALLERGIES Allergen Reactions Amoxicillin Other: See Comments Contrast Dye Sulfa (Sulfonamide * OBJECTIVE PHYSICAL EXAM: BP: 136/63 Temp: 36.3 ?C (97.3 ?F) Temp src: Temporal Pulse: 69 Resp: 18 O2 Therapy: Room Air SpO2: 97 % AIRWAY: Patent, Full neck flexion and extension, Mallampati 1. LUNGS: Normal respiratory effort CARDIAC: PPP, normal HS, no murmur ABDOMEN: Soft, non-tender, no masses SIGNATURE: Kasey Fallon MD PATIENT NAME: Munira Chester DATE: 07/13/2024 TIME: 1345 [facility] NURSING PROGon 07-13-2024 NURSING PROG HNO ID: [id number] Author: LINDA ALVARADO RN Service: ? Author Type: Registered Nurse Type: Nursing Progress Note Filed: 07/13/2024 15:31 Note Text: AMBULATORY PATIENT EDUCATION NOTE TOPIC: GI PROCEDURES: Enteroscopy READINESS TO LEARN INSTRUCTION PROVIDED TO: Patient and family member COGNITIVE ABILITY: Alert and oriented PTED MOTIVATION TO LEARN: Eager Interested FAMILY SUPPORT: Moderate - Family present but overwhelmed IPATIENT LEARNS BEST BY: Individual Instruction Written Instruction - Hand-outs Verbal Instruction FACTORS AFFECTING LEARNING: None PHYSICAL LIMITATIONS AFFECTING LEARNING: None LEARNING RESPONSE METHOD OF INSTRUCTION: Individual instruction PATIENT / FAMILY RESPONSE: Verbalizes understanding of: WORSENING CONDITION-Signs and symptoms of a worsening condition that warrant a call to the physician FOLLOW-UP PLAN: Patient instructed to call with any further issues Recommend - Recommend continued instruction and follow up as directed Contact information given. SUPPLEMENTAL MATERIAL: Procedure Discharge Instructions REFERRAL (RECOMMENDATION): None Electronically Signed By: Linda Alvarado RN [facility] NURSING PROG HNO ID: [id number] Author: MARY CALLEJAS RN Service: ? Author Type: Registered Nurse Type: Nursing Progress Note Filed: 07/13/2024 12:56 Note Text: PRE OP LEARNING ASSESSMENT PROCEDURE/SURGERY: GI PROCEDURES: Colonoscopy READINESS TO LEARN COGNITIVE ABILITY: Alert and oriented MOTIVATION TO LEARN: Eager FAMILY SUPPORT: High - Very involved in pt care PATIENT LEARNS BEST BY: Individual Instruction FACTORS AFFECTING LEARNING: None PHYSICAL LIMITATIONS AFFECTING LEARNING: None Electronically Signed By: Mary Callejas RN In Department: GASTROENTEROLOGY [facility] Pathology biopsy report David (Tiss)on 07-13-2024 AP DISCLAIMER [facility] Comment on above: Order Comment: Speci men Type: TISSUE SPECIMENOrdering Facility: [facility] Address: [address] [place] [address] Result Comment: Adri wooten Developed Test (LDT) Disclaimer: Performance characteristics of immunohistochemical, immunofluorescent, and chromogenic in-situ hybridization tests have been determined by the performing laboratory within [facility] Pathology and Laboratory Medicine Department ([facility], [facility], [facility], [facility], [facility], [facility], or [facility]) in a manner consistent with CLIA requirements. One or more of these tests may not have been cleared or approved by the FDA. [facility] is regulated under CLIA as qualified to perform high-complexity testing. These tests are used for clinical purposes. These should not be regarded as investigational or for research. Positive and negative controls stain appropriately. Performed By: #### 6 6121-5 ####[facility]ATORYCLIA [id number] [address] OF [facility] LABCLIA [id number] [address] OF [place] CASE REPORT [facility] Comment on above: Order Comment: Speci men Type: TISSUE SPECIMENOrdering Facility: [facility] Address: [address] [place] [address] Result Comment: Surg ica Pathology Report Case: [id number] Authorizing Provider: Kasey Fallon MD Collected: 07/13/2024 03:06 PM Ordering Location: Gastroenterology Received: 07/13/2024 06:18 PM Pathologist: Espinoza Sharp MD Specimens: A) - Small Bowel, Ileum, Biopsy, Mid ileal stricture B) - Small Bowel, Ileum, Biopsy, Distal ileal C) - Small Bowel, Terminal Ileum, Biopsy D) - Colon, Hepatic Flexure, Polyp Performed By: #### 6 6121-5 ####[facility]ORYCLIA [id number] [address] STATES OF [facility] LABCLIA [id number] [address] STATES OF [place] FINAL DIAGNOSIS [facility] Comment on above: Order Comment: Speci men Type: TISSUE SPECIMENOrdering Facility: [facility] Address: [address] [place] [address] Result Comment: A. M id ileal stricture, biopsy: - Small bowel mucosa with ulcer. - Negative for dysplasia or granulomas. B. Ileum, biopsy: - Small bowel mucosa with no significant pathologic changes. C. Terminal ileum, biopsy: - Small bowel mucosa with no significant pathologic changes. D. Hepatic flexure, polypectomy: - Fragments of tubular adenoma. at 1114 EDT Performed By: #### 6 6121-5 ####[facility]ORYCLIA [id number] [address] LABCLIA [id number] [address] STATES OF [facility] FINAL PERFORMING LAB Normal [facility] Comment on above: Order Comment: Speci men Type: TISSUE SPECIMENOrdering Facility: [facility] Address: [address] [place] [address] Result Comment: Diag nostic interpretation performed at: [facility], [address] [address] CLIA# [id number] Lorry Weigher: Tanvi Astudillo MD Performed By: #### 6 6121-5 ####[facility]OR[facility]ORYCLIA [id number] [address] OF [facility] LABCLIA [id number] [place] [address] [place] GROSS DESCRIPTION Normal [facility] Comment on above: Order Comment: Speci men Type: TISSUE SPECIMENOrdering Facility: [facility] Address: [address] [place] [address], [place] [address] Result Comment: A. S mall Bowel, Ileum, Biopsy Received in formalin are [...] in one cassette. Gross examination performed at [facility], [address] [place] [address], [place] [address] AMS July 13, 2024 10:18 PM Performed By: #### 6 6121-5 ####[facility]ORYCLIA [id number] [address] OF [facility] LABCLIA [id number] [address] Ambulatory Visit Summaryon 0 07-08-2024 Ambulatory Visit Summary Ambulatory Visi t Summary MUNIRA CHESTER :1950 Visit Date:07/08/2024 Ambulatory Visit Instructions Your Diagnosis Intrinsic sphincter deficiency (ISD) Urethral lesion Urethral caruncle Recurrent UTI Your Care Team [...] spray) fluticasone nasal (fluticasone 0.05 mg/inh Nasal [place]) fluticasone-vilanterol (Breo Ellipta 200 mcg-25 mcg/inh inhalation powder) levothyroxine (levothyroxine 100 mcg (0.1 mg) Tab) montelukast (montelukast 10 mg Tab) multivitamin (Multi Vitamins oral tablet) orphenadrine (orphenadrine compounding powder) pantoprazole (Pantoprazole [address] Tab) Procedures Performed Cystoscopy (06/02/2024), Cystoscopy (04/07/2024), Colonoscopy (05/22/2023), Esophagogastroduodenoscop y (05/22/2023), Colonoscopy (09/07/2019), EGD - Esophagogastroduodenoscop y (09/07/2019), Colonoscopy (01/16/2015), EGD - Esophagogastroduodenoscop y (01/16/2015), EGD - Esophagogastroduodenoscop y (08/17/2011), EGD - Esophagogastroduodenoscop y (05/17/2011), Laparoscopic cholecystectomy (06/16/2010), Colonoscopy (01/16/2010), Cataracts, section, Dilation and curettage, Foot, Right wrist, Rotator cuff repair, Thyroidectomy, Tubal ligation. Discharge Vitals Height 158 cm Height 62 in Weight 77.0 kg Weight 169.756 lb BMI 30.84 What to do next You Need to Schedule the Following Appointments Follow Up with Dewayne VILLEGAS, RANDAL Arizmendi, [facility] When: Where: Someone Will Contact You Regarding These Appointments [facility] External Ambulatory Referral, Urology, Dr. Janae Caban at [facility], 07/08/24 9:53:00 EDT, Intrinsic sphincter deficiency (ISD) Medications What How Much When Why Instructions [...] if questions or concerns Unchanged cetirizine (Zyrtec) By Mouth Every day Contact prescribing physician if questions or concerns Unchanged cholecalciferol (Vitamin D3) By Mouth Every day Contact prescribing physician if questions or concerns Unchanged epinephrine (EpiPen 2-Giovani) 0.3 Milligram Intramuscular Once as needed for Anaphylaxis Contact prescribing physician if questions or concerns Unchanged famotidine (famotidine 20 mg Tab) 1 Tablets By Mouth 2 times a day Contact prescribing physician if questions or concerns Unchanged fluticasone nasal (fluticasone 0.05 mg/ inh Nasal [place]) 2 Sprays Nasal Inhalation Every day Contact prescribing physician if questions or concerns Unchanged fluticasone nasal (Xhance 93 mcg/ inh nasal spray) 2 times a day Contact prescribing physician if questions or concerns Unchanged fluticasone-vilanterol (Breo Ellipta 200 mcg-25 mcg/ inh inhalation powder) 1 Inhalation Inhalation Every day Contact prescribing physician if [...] prescribing physician if questions or concerns Unchanged orphenadrine (orphenadrine compounding powder) As needed for Migraine headache Contact prescribing physician if questions or concerns Unchanged pantoprazole (Pantoprazole [address] Tab) 1 Tablets By Mouth Every day Epigastric pain Ab (more content not included)... [facility] Urology Office/Clinic Noteon 07-08-2024 Urology Office/Clinic Note Urology Office/Clinic Note Chief Complaint F/U with [facility] HPI Staff 73 year old female patient here for 1 month follow up from [facility] 06/02/24 with [facility]. Previous dx: mixed incontinence, recurrent uti, urethral caruncle, urethral lesion, intrinsic sphincter deficiency. *estradiol 0.1mg/g vaginal cream BBSQ 19 Pt. denies having pain with urination or gross hematuria Pt. denies having abd or flank pain Pt. states she does not feel like the [facility] help any of her symptoms Pt. states when she when she is emptying her bladder it takes longer PVR 0mL History of Present Illness Tests reviewed: reviewed [...] HPI. Physical Exam Vitals & Measurements HT: 158 cm HT: 62 in WT: 169.756 lb WT: 77.0 kg BMI: 30.84 General Appearance: alert , no acute distress, well nourished, well developed female. Assessment/Plan 73 yo female here for follow up to recent procedure for ROSA MARIA/ISD. Reports hx of vaginal mesh for uterus, complicated by infection and removed 3 years later. 1. Intrinsic sphincter deficiency (ISD) (N36.42: Intrinsic sphincter deficiency (ISD)) BBSQ 19 (20) ROSA MARIA > UUI PVR 01/31/22 - 0 mL 01/2024 - 0 mL 07/08/24 - 0 mL Reports hx of mesh for uterus, complicated by infection and removed 3 years later. Tried Myrbetriq without improvement. ISD confirmed 02/24/24. S/p Bulkamid 06/02/24. Denies improvement or reduced leakage. Has noticed it takes her longer to empty, empties completely today. Incontinence is bothersome at night. Pt states once her feet hit the floor she has to go immediately and urine gushes out, believes it is attributed to gravity vs UUI. Pt states fluid intake has nothing to do with it . Pt has tried to limit fluids prior to bedtime and does not notice a difference. Given history of failing multiple treatment plans, I recommend a referral to Dr. Caban for a further workup especially given hx of vaginal mesh removal. Further workup to better distinguish symptoms such as video urodynamics would be helpful, which we do not have locally. Declines medical mgmt to treat UUI/OAB, I'm done trying . -Refer to Dr. Janae Caban at [facility] for further w/up such as video urodynamics (not available here), possible midurethral sling 2. Urethral lesion (N36.9: Urethral disorder, unspecified) S/p cysto 02/24/24 - bladder is normal,Trabeculated Mild (1), Papillary lesions/inflammation posterior urethra/ anterior bladder neck. No other b.t., lesions, stones or foreign bodies. Urine cytology [...] urethral polyp. No malignancy or dysplasia identified. 3. 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 Continues Estrace cream. -See #1 4. Recurrent UTI (N39.0: Urinary tract infection, site not specified) UCx 12/27/23 - negative. UA today shows trace leuks. She continues post coital Macrobid 100mg. Works well when she remembers to take it. -Cont Estrace cream Follow-up With When Contact Information Dewayne VILLEGAS, Asuncion London, URL, URO Additional Instructions: Refer to Dr. Janae Caban at [facility] Patient Education Urinary Incontinence I, Ailyn Aranda, personally scribed for Dr. Buchanan on 07/08/2024 09:53:11. . Documentation recorded by the scribeAilyn, accurately reflects the services(s) I performed and decisions made by me. Authenticated by Dr. Buchanan on 07/08/2024 10:36:35. Problem List/Past Medical History Ongoing Abdominal bloating Acute allergic rhinitis due to pollen Arthritis Asthma Asymptomatic m (more content not included)... Normal [facility] Comment on above: Result Comment: Elec tronically Signed By: Asuncion Buchanan MD\.br\Date and Time Signed: 07/08/24 10:37 EDT\.br\Electronically Co-Signed By: Ailyn Aranda\.br\Date and Time Co-Signed: 07/08/24 09:53 EDT NURSING PROGon 07-06-2024 NURSING PROG HNO ID: [id number] Author: NOEMÍ WILLIAM RN Service: ? Author Type: Registered Nurse Type: Nursing Progress Note Filed: 07/06/2024 13:25 Note Text: Attempted to reach the patient at the contact number that they provided [phone] (home) [phone] (work) . Unable to speak with patient so without identifying the patient the following information was left on their voice mail: Date of procedure, location and report time Prep instructions A message was left informing the patient/patient sales representative metals they must have a responsible adult accompany them to their procedure; and remain in the endoscopy area until they are discharged. Failure to have a responsible adult accompany the patient to their procedure appointment prevents the use of sedation or anesthesia for their procedure; and can result in cancellation of the procedure NPO instructions were reviewed. Clear liquids the day before the procedure, stop all liquids 4 hours before the procedure Instructions to contact their primary care provider regarding their medications and which medications to stop in preparation for their procedure Instructions to completely read and follow the written instructions that they recieved regarding their procedure. Number to call with questions or concerns [phone] Number to call to cancel their procedure [phone] Noemí William RN [facility] 07-01-2024 [facility] Tele[facility] ([id number]) ----- MUNIRA CHESTER ([id number]) 1950 F Date Time Provider Department 07/01/24 JACQUELINE HONG3 During your visit today, we recorded the following information about you: Jacqueline Hong RN 07/01/2024 3:54 PM Signed Prep question unable to take Gatorade / Message sent to referring Tu Brody, MARIA D 07/02/2024 2:03 PM Addendum Patient has been identified by name and date of : Yes Pt states that she can't tolerate sports drinks. Pt states that her local GI provider lets her used flat 7up or sprite with miralax and dulcolax. MARIA D Machuca Carlisa, RN 07/03/2024 11:43 AM Signed Patient has been identified by name and date of : Yes Sure, that's fine. She should drink some salty broth during the day to make sure she doesn't get low sodium Kasey Message was given to the patient. Patient verbalized understanding. TU THOMAS RN Allergies As of Date: 07/01/2024 Noted Allergy Reaction AMOXICILLIN 12/27/2023 14 - Other: See Comments CONTRAST DYE 12/08/2007 SULFA (SULFONAMIDE ANTIBIOTICS) 12/08/2007 Date Reviewed: 12/27/2023 Reviewed by: Rakesh Gaspar MA - Fully Assessed Reason for Visit: Education Of Patient/family [[id number]] Patient Question [2947] Cmt: Message sent to referring physician regarding a substitute for Gatorade Prescriptions as of 07/03/2024 - amLODIPine (NORVASC) 5 mg tablet Take by mouth once daily. - Cetirizine 10 mg cap Take by mouth. - famotidine (PEPCID) 20 mg tablet Take 20 mg by mouth two times a day. - iron polysaccharide complex (FERREX 150 ORAL) Take by mouth every other day. - codeine phosphate/guaifenesin (CODEINE-GUAIFENESIN ORAL) Take by mouth. - pantoprazole DR (PROTONIX) 40 mg tablet Take 40 mg by mouth two times a day. - fluticasone propionate (XHANCE) 93 mcg/actuation nasal spray Use in each nostril two times a day. - nitrofurantoin macrocrystal (MACRODANTIN) 100 mg capsule 100 mg by ORAL/FEEDING TUBE route. - betamethasone valerate 0.1 % cream Apply to affected area. - cholecalciferol, vitamin D3, (D3-2000 ORAL) Take by mouth. - calcium carbonate/vitamin D3 (CALCIUM + D ORAL) Take by mouth. - iron bis-glycinat/vit C/FA/B12 (GENTLE IRON ORAL) Take by mouth. - mv-min/iron/folic/calcium /vitK (WOMEN'S MULTIVITAMIN ORAL) Take by mouth. - vit A/vit C/biotin/zinc/copper (WWCP-ONOB-MFNK,VIT A,C-BIOTIN, ORAL) Take by mouth. - aspirin 325 mg cap Take by mouth. - Ibuprofen 200 mg cap Take by mouth every 6 hours as needed. - acetaminophen (TYLENOL) 325 mg tablet Take 650 mg by mouth every 6 hours as needed. - peg 3350-Electrolytes (GOLYTELY) 236-22.74-6.74 -5.86 gram suspension Add water to powder in the jug up to the fill line. Starting at 6pm the evening before the colonsocopy, drink 8 oz every 15 minutes until half to three quarters of the jug is consumed AND returns are clear. Take a break. Finish the remainder of the jug 4 hours before your procedure. - fluticasone-vilanterol (BREO ELLIPTA) 100-25 mcg/dose inhaler Inhale 1 Inhalation as instructed once daily. - EPINEPHrine (EPIPEN) 0.3 mg/0.3 mL auto-injector Inject 0.3 mg intramuscularly as needed. - fluticasone (FLONASE) 50 mcg/actuation nasal spray Use 1 [place] in each nostril once daily. - atorvastatin (LIPITOR) 10 mg tablet Take 10 mg by mouth once daily. - albuterol HFA (PROAIR HFA) 90 mcg/actuation inhaler Inhale 2 Puffs as instructed. - montelukast (SINGULAIR) 10 mg tablet Take 10 mg by mouth daily at bedtime. - alendronate (FOSAMAX) 70 mg tablet Take [...] tablet daily. Problem List As Of Date 07/01/2024 Noted Resolved Episodic tension-type headache, not intractable*02/06/2016 Achilles tendinitis of right lower extremity [M*04/11/2016 Encounter Status:Closed by JACQUELINE HONG on 07/01/24 [facility] Main OR Intraoperative Recor don 06-03-2024 Main OR Intraoperative Record Main OR Intraoperative Record IntraOp Document Type FT Summary Primary Physician: Asuncion Buchanan MD Finalized Date/Time: 06/03/24 11:56:15 Pt. Name: MUNIRA CHESTER/Sex: 1950 Female Med Rec #: [id number] Physician: Asuncion Buchanan MD Financial #: [id number] Pt. Type: A Room/Bed: Admit/Disch: 06/02/24 05:52:59 - 06/02/24 10:10:00 Institution: Case Times FT Entry 1 Patient Times In Room 06/02/24 08:11:00 Out Room 06/02/24 08:34:00 Procedure Times Start 06/02/24 08:22:00 Stop 06/02/24 08:30:00 Anesthesia Times Start 06/02/24 08:11:00 Stop 06/02/24 08:34:00 Last Modified By: Mars KILLIAN, Luz Elena Walden 06/02/24 08:34:37 Case Attendance FT Entry 1 Entry 2 Entry 3 Case Attendee Marco TURNER, Cyrus Buchanan MD, Asuncion Crews RN, Luz Elena Walden Role Performed CHAIN SAW OPERATOR Surgeon - Primary Cold Press Operator - Primary Time In 06/02/24 08:11:00 06/02/24 08:11:00 06/02/24 08:11:00 Time Out 06/02/24 08:34:00 06/02/24 08:34:00 06/02/24 08:34:00 Procedure CYSTOSCOPY(.) CYSTOSCOPY(.) CYSTOSCOPY(.) Comments DR. VALDERRAMA SUPERVISING Last Modified By: Mars KILLIAN, Luz Elena Crews RN, Luz Elena Crews RN, Luz Elena Walden 06/02/24 Holly Walden 06/02/24 Holly Walden 06/02/24 08:34:38 08:34:38 08:34:38 Entry 4 Case Attendee Lucas Harper Role Performed Scrub - Primary Time In 06/02/24 08:11:00 Time Out 06/02/24 08:34:00 Procedure CYSTOSCOPY(.) Comments ALF LOPEZ, ENTERPRISE SYSTEMS ADMINISTRATOR STUDENT FOLLOWING Last Modified By: Mars KILLIAN, Luz Elena Walden 06/02/24 08:34:38 Perioperative Protocols FT Pre-Care Text: Implements protective measures prior to operative or invasive procedure, confirms identity before the operative or invasive procedure, verifies operative procedure, surgical site, and laterality Entry 1 Procedure(s) CYSTOSCOPY(.) Patient Identity Birthday, ID Band Verified (select at Check, Patient least 2): Participation Consents / H and P Anesthesia Consent, Operative Site N/A Verified H&P, Surgery/Procedure Marking Verified Consent Surgical Site Yes Laterality Verified n/a Verified Procedure Verified Yes Correct Patient Yes Position Verified Availability Equipment, Medication Prep Dry n/a Verified (If Applicable) PreOp Antibiotic Yes Time Out Dewayne VILLEGAS, Asuncion [place], Given Participants Cyrus Cottrell CRNA, Ferrer RN, Meredith Duke Kendall R Time Out Complete 06/02/24 08:22:00 Outcomes Met? Yes Last Modified By: Luz Elena Crews RN 06/02/24 08:24:59 Post-Care Text: The patient is free from signs and symptoms of injury caused by extraneous objects Allergy Information FT Pre-Care Text: Verifies allergies Entry 1 Allergies Reviewed? Yes Allergies Reviewed Self/Patient With Outcomes Met? Yes Last Modified By: Luz Elena Crews RN 06/02/24 07:58:48 Post-Care Text: The patient received appropriate medication(s) safely administered during the perioperative period Surgical Procedures FT Entry 1 Procedure Description Procedure CYSTOSCOPY Modifiers . Surgeon Description CYSTOSCOPY, BULKAMID Primary Procedure Yes Primary Surgeon Asuncion Buchanan MD Start 06/02/24 08:22:00 Stop 06/02/24 08:30:00 Anesthesia Type General Surgical Service Urology Wound Class 2 - Clean-Contaminated Last Modified By: Luz Elena Crews RN 06/02/24 08:30:19 General Case Data FT Pre-Care Text: Classifies surgical wound, implements aseptic technique, initiates traffic control Entry 1 Case Information OR OR 1 FT Case Level Level 3 Wound Class 2 - Clean-Contaminated Specialty Urology ASA Class 3 Preop Diagnosis INTRINSIC SPHINCTER Postop Same As Preop Yes DEFICIENCY Postop Diagnosis INTRINSIC SPHINCTER Outcomes Met? Yes DEFICIENCY Last Modified By: Rica Carpenter CST 06/03/24 11:56:12 Post-Care Text: The patient is free from signs and symptoms of infection Skin Assessment (Pre Procedure) FT Pre-Care Text: Implements protective measures to prevent skin/ tissue injury due to thermal or mechanical sources Evaluates for signs and symptoms of physical injury to skin and tissue Entry 1 Skin Integrity Intact, [place], Warm, & Skin Abnormality Yes Dry, Red Abnormality Location REDNESS ON BILATERAL Outcomes Met? Yes GROIN AREA Last Modified By: Luz Elena Crews RN 06/02/24 08:25:32 Post-Care Text: The patient is free from signs and symptoms of injury caused by extraneous objects Patient Positioning FT Pre-Care Text: Identifies physical alterations that require additional precautions for procedure-specific positioning, verifies presence of prosthetics or corrective devices, positions the patient, evaluates the patient for signs and symptoms of injury as a result of positioning Entry 1 Procedure CYSTOSCOPY(.) Body Position High Lithotomy Feet Uncrossed? Yes Left Arm Position Tucked and Padded at Side Right Arm Position Tucked and Padded at Left Leg Posi (more content not included)... Normal [facility] Discharge Instructionson Discharge Instructions Discharge Instruc tions MUNIRA CHESTER :1950 Visit Date:06/02/2024 Inpatient Discharge Instructions Your Care Team Admitting Physician - Asuncion Buchanan MD Referring Physician - Asuncion Buchanan MD Reason for Your Visit INTRINSIC SPINCHTER DEFECIENCEY Your Diagnosis Intrinsic sphincter deficiency (ISD) This Is Your Medications List albuterol (ProAir HFA 90 mcg/inh inhalation aerosol) alendronate (Fosamax 70 mg Tab) amlodipine (amLODIPine 5 mg Tab) atorvastatin (atorvastatin 10 mg Tab) biotin (Hair, Skin & Nails 5 mg oral capsule) cephalexin (Keflex 500 mg Cap) cetirizine (Zyrtec) cholecalciferol (Vitamin D3) epinephrine (EpiPen 2-Giovani) estradiol topical (estradiol 0.1 mg/g Vag Crm) famotidine (famotidine 20 mg Tab) fluticasone nasal (Xhance 93 mcg/inh nasal spray) fluticasone nasal (fluticasone 0.05 mg/inh Nasal [place]) fluticasone-vilanterol (Breo Ellipta 200 mcg-25 mcg/inh inhalation powder) levothyroxine (levothyroxine 100 mcg (0.1 mg) Tab) montelukast (montelukast 10 mg Tab) multivitamin (Multi Vitamins oral tablet) nitrofurantoin (Macrobid 100 mg Cap) orphenadrine (orphenadrine compounding powder) pantoprazole (Pantoprazole [address] Tab) Procedure History Cystoscopy (04/07/2024), Colonoscopy (05/22/2023), Esophagogastroduodenoscop y (05/22/2023), [...] or heavy bleeding, Temperature above 101.5 degrees, Persistent vomiting Discharge Instructions Discharge Instructions New Follow Up Appointments after Discharge Follow Up with Asuncion Buchanan When: Comments: Call to schedule your follow up in 1 month for PVR Where: [address] [place] [address], [address] [phone] [phone] Business (1) Medications What How Much When Why Instructions Next Dose New cephalexin (Keflex 500 mg Cap) 1 Capsules By Mouth Every 12 hours Duration: 4 Days Post procedure Pickup at [facility] Unchanged albuterol (ProAir HFA 90 mcg/ [...] By Mouth Every day Unchanged cetirizine (Zyrtec) By Mouth Every day Unchanged cholecalciferol (Vitamin D3) By Mouth Every day Unchanged epinephrine (EpiPen 2-Giovani) 0.3 Milligram Intramuscular Once as needed for Anaphylaxis Unchanged estradiol topical (estradiol 0.1 mg/ g Vag Crm) See instructions apply pea sized amount to urethra 2x/ wk Unchanged famotidine (famotidine 20 mg Tab) 1 Tablets By Mouth 2 times a day Unchanged fluticasone nasal (fluticasone 0.05 mg/ inh Nasal [place]) 2 Sprays Nasal Inhalation Every day Unchanged fluticasone nasal (Xhance 93 mcg/ inh nasal spray) 2 times a day Unchanged fluticasone-vilanterol (Breo Ellipta 200 mcg-25 mcg/ inh inhalation powder) 1 Inhalation Inhalation Every day Unchanged levothyroxine (levothyroxine 100 mcg (0.1 mg) Tab) 1 Tablets By Mouth Every day Unchanged montelukast (montelukast 10 mg Tab) 1 Tablets By Mouth Once a day (in the evening) Unchanged multivitamin (Multi Vitamins oral tablet) 1 Tablets By Mouth Every day Unchanged nitrofurantoin (Macrobid 100 mg Cap) 1 Capsules By Mouth As Directed take 1 tablet within 1 hour before or after intercourse to prevent infection. Unchanged orphenadrine (orphenadrine compounding powder) As needed for Migraine headache Unchanged pantoprazole (Pantoprazole [address] Tab) 1 Tablets By Mouth Every day Epigastric pain Abdominal bloating GERD (gastroesophageal reflux disease) H/O gastric ulcer BMI 29.0-29.9,adult Epigastric pain Abdominal bloating GERD (gastroesophageal reflux disease) H/O gastric ulcer BMI 29.0-29.9,adult Pharmacy Information [facility]: [address], [place] [id number] [phone] Test Results No qualifying data available. Allergies Bee Stings (SOB - Shortness of breath, Hives) amoxicillin (Rash) contrast media (iodine-based) (SOB - Shortness of breath, (more content not included)... Normal [facility] Comment on above: Result Comment: Elec tronically Signed By: Aleyda KILLIAN, Roxanne Mitchell\.br\Date and Time Signed: 06/02/24 09:01 EDT Inpatient Patient Summaryon 06-02-2024 Inpatient Patient Summary Inpatient Patient Summary [place] [id number] [facility] Clinical Discharge Instructions PERSON INFORMATION Name: MUNIRA CHESTER [facility]#:[id number] PHYSICIANS Admitting Physician: Asuncion Buchanan MD Attending Physician: Asuncion Buchanan MD PCP: ANDREA GOLDEN DO Discharge Diagnosis: Intrinsic sphincter deficiency (ISD) Comment: PATIENT EDUCATION INFORMATION Instructions: Lue - Bulkamid Post-Op Instructions (CUSTOM) Medication Leaflets: Follow up: With: Address: When: Asuncion Buchanan [address], [address], [facility] [address] [place] [phone] Business (1) Comments: Call to schedule your follow up in 1 month for PVR MEDICATION LIST New Medications [facility], [address] [place] [id number], [phone] cephalexin (Keflex 500 mg Cap) 1 Capsules By Mouth every 12 hours for 4 Days. Post procedure. Refills: 0. Medications to Continue with No [...] capsule) By Mouth every day. cetirizine (Zyrtec) By Mouth every day. cholecalciferol (Vitamin D3) By Mouth every day. epinephrine (EpiPen 2-Giovani) 0.3 Milligram Intramuscular Once as needed Anaphylaxis. estradiol topical (estradiol 0.1 mg/g Vag Crm) apply pea sized amount to urethra 2x/wk. Refills: 0. famotidine (famotidine 20 mg Tab) 1 Tablets By Mouth 2 times a day. fluticasone nasal (fluticasone 0.05 mg/inh Nasal [place]) 2 Sprays Nasal Inhalation every day. fluticasone nasal (Xhance 93 mcg/inh nasal spray) 2 times a day. fluticasone-vilanterol (Breo Ellipta 200 mcg-25 mcg/inh inhalation powder) 1 Inhalation Inhalation every day. levothyroxine (levothyroxine 100 mcg (0.1 mg) Tab) 1 Tablets By Mouth every day. montelukast (montelukast 10 mg Tab) 1 Tablets By Mouth once a day (in the evening). multivitamin (Multi Vitamins oral tablet) 1 Tablets By Mouth every day. nitrofurantoin (Macrobid 100 mg Cap) 1 Capsules By Mouth As Directed. take 1 tablet within 1 hour before or after intercourse to prevent infection.. Refills: 3. orphenadrine (orphenadrine compounding powder) as needed Migraine headache. pantoprazole (Pantoprazole [address] Tab) 1 Tablets By Mouth every day. Refills: 1. Comment: Alexandrea Garay [facility] Main OR PACU I Recordon 05-16 Main OR PACU I Record Main OR PACU I Rec ord PACU Phase I Document Type FT Summary Primary Physician: Asuncion Buchanan MD Finalized Date/Time: 06/02/24 09:13:02 Pt. Name: MUNIRA CHESTER /Sex: 1950 Female Med Rec #: [id number] Physician: Asuncion Buchanan MD Financial #: [id number] Pt. Type: A Room/Bed: [place] [address] Admit/Disch: 06/02/24 05:52:59 - Institution: Case Times PACU I FT [...] to medications Entry 1 In PACU I 06/02/24 08:36:00 Discharge from PACU 06/02/24 09:06:00 I Outcomes Met? Yes Last Modified By: Shruthi Cabezas RN 06/02/24 09:12:53 Post-Care Text: The patient demonstrates knowledge of [...] PACU I FT Entry 1 Start Time 06/02/24 08:36:00 Stop Time 06/02/24 09:06:00 Acuity Level Acuity Level I Last Modified By: Shruthi Cabezas RN 06/02/24 09:12:59 Finalized By: Shruthi Cabezas RN Document Signatures Signed By: Shruthi Cabezas RN 06/02/24 09:13 Normal [facility] Main OR PACU II Recordon Main OR PACU II Record Main OR PACU II R ecord PACU Phase II Document Type FT Summary Primary Physician: Asuncion Buchanan MD Finalized Date/Time: 06/02/24 10:20:05 Pt. Name: MUNIRA CHESTER/Sex: 1950 Female Med Rec #: [id number] Physician: Asuncion Buchanan MD Financial #: [id number] Pt. Type: A Room/Bed: [facility]/ Admit/Disch: 06/02/24 05:52:59 - Institution: Case Times PACU II FT [...] to medications Entry 1 In PACU II 06/02/24 09:10:00 Discharge from PACU 06/02/24 10:10:00 II Outcomes Met? Yes Last Modified By: Roxanne Maynard RN 06/02/24 10:20:04 Post-Care Text: The patient demonstrates knowledge of [...] administered during the perioperative period Finalized By: Roxanne Maynard RN Document Signatures Signed By: Roxanne Maynard RN 06/02/24 10:20 Normal [facility] Main OR Preoperative Recordo n 06-02-2024 Main OR Preoperative Record Main OR Preoperative Record PreOp Document Type FT Summary Primary Physician: Asuncion Buchanan MD Finalized Date/Time: 06/02/24 08:29:55 Pt. Name: MUNIRA CHESTER/Sex: 1950 Female Med Rec #: [id number] Physician: Asuncion Buchanan MD Financial #: [id number] Pt. Type: A Room/Bed: [facility]05/16 Admit/Disch: 06/02/24 05:52:59 - Institution: Case Times PreOp FT Pre-Care Text: Verifies consent for planned procedure, identifies individual values and wishes concerning care, includes family members in perioperative teaching Entry 1 Patient Times. In Pre Surgery 06/02/24 06:00:00 Out Pre Surgery 06/02/24 08:09:00 Outcomes Met? Yes Last Modified By: Luz Elena Crews RN 06/02/24 08:29:54 Post-Care Text: The patient participates in decisions affecting his or her perioperative plan of care Finalized By: Luz Elena Crews RN Document Signatures Signed By: Luz Elena Crews RN 06/02/24 08:29 Normal Garay [facility] Operative Reporton Operative Report Operative Report Patient: MUNIRA CHESTER Age: 73 years Sex: Female : 1950 Associated Diagnoses: None Author: Asuncion Buchanan MD Procedure Procedure Date: 06/02/2024. Confirmed: patient, procedure, site, safety procedures followed. Performed by: Asuncion Buchanan MD, anesthesiologist (Cyrus Cottrell CRNA). Type of procedure: Type of procedure: Cystoscopy, injection of urethral bulking agent (Bulkamid) CPT 64181. . 73-year-old female with a history of stress urinary incontinence found to have intrinsic sphincter deficiency on pelvic exam despite Kegels and pelvic floor exercises. After discussion of risks and benefits of management options, patient elected to proceed to the OR for cystoscopy, Bulkamid (injection of urethral bulking agent). Risks were discussed including but not limited to bleeding, pain, infection, retention, damage to surrounding structures and need for additional procedures. Findings: No bladder tumors, lesions, stones or foreign bodies. Excellent coaptation of urethra after Bulkamid. Procedure tolerated: well. Specimen: none. Complications: none. PROCEDURE IN DETAIL: After the risks, benefits, [...] was inserted into the urethra and bladder. A 22 Fr cystoscope with 30 degree lens was inserted without difficutly. Full cystoscopy was performed with findings as above. Bilateral UOs orthotopic and patent. The bladder was drained and cystoscope was removed. Anesthetic gel was added to the end rotatable Bulkamid sheath and the water inflow was adjusted to produce an adequate stream. The Bulkamid Needle was then placed ??? of the way into the needle channel of the rotatable sheath and the entire Bulkamid system was then advanced into the urethra until the bladder is visualised and inspected. The Bulkamid needle was then advanced into the needle channel on the rotatable sheath until the tip of the sheath is adjacent to the bladder neck. The sheath was then rotated to the 5 o'clock position. The needed was then extend into the bladder until the 2cm abelino on the needle is visible. The Bulkamid system was then retracted until the tip of the needle was resting on the bladder neck. The needle was then retracted into the sheath and approximately 1.5cm from the bladder neck the Bulkamid system was pressed parallel against the urethral wall and the needle is then advanced into the submucosal tissue ensuring that the bevel of the needle was facing towards the lumen. The needle was advanced approximately 0.5cm, and the Bulkamid hydrogel was then injected until the Bulkamid cushion was visible and reached the midline of the urethral lumen. The needle was then retracted back into the rotatable sheath, and rotated to the next injection site. Subsequent injections were performed at 7 o'clock, 2 o'clock and 10 o'clock all along the same plane as the original injection until all (4) cushions met at the midline of the urethral lumen. Excess Bulkamid was injected in between to fill any gaps. Total 2mls Total of Bulkamid Hydrogel was used. The bladder was left full at the end of the case and the Bulkamid system was removed. The procedure was well tolerated and EBL was minimal. Plan: Void prior to dc home. Prophylactic antibiotics were prescribed. Follow up in 1 month with [facility] and to evaluate improvement. Patient was given instruction to contact the office if she had any difficulty urinating and was consulted about the potential of a top up procedure if the desired effect was not achieved. . Impression and Plan Diagnosis Intrinsic sphincter deficiency (ISD) ([id number]-SG N36.42, Discharge, Medical). Diagnosis Intrinsic sphincter deficiency (ISD) (YHC64-RA N36.42, Discharge, Medical). Normal [facility] Comment on above: Result Comment: Elec tronically Signed By: Dewayne VILLEGAS, Asuncion [place]\.br\Date and Time Signed: 06/02/24 08:46 EDT Outpatient Surgery Discharge Instructionon 06-02-2024 Outpatient Surgery Discharge Instruction Outpatient Surgery Discharge Instruction [address] [address] Patient Discharge Instructions PERSON INFORMATION Name: MUNIRA CHESTER Date of : 1950 Current Date: 06/02/2024 08:43:02 PHYSICIANS Admitting Physician: Asuncion Buchanan MD Discharge Diagnosis: Intrinsic sphincter deficiency (ISD) MUNIRA CHESTER has been given the following list of follow-up instructions, prescriptions, and patient education materials: PATIENT FOLLOW-UP INFORMATION Diet: Regular Discharge Activity: Ambulate as tolerated, Expect mild pain, Expect minimal amount of drainage and/or bleeding, Activity as tolerated Discharge Restrictions: No driving for 24 hrs Call Your Doctor For: Persistent or heavy bleeding, Temperature above 101.5 degrees, Persistent vomiting IF UNABLE TO CONTACT YOUR PHYSICIAN AND YOU FEEL IT IS AN EMERGENCY, GO TO THE NEAREST EMERGENCY ROOM OR CALL 911 I, CATHERINE MUNIRA, have received the attached patient education materials/instructions and have verbalized understanding: May we do a follow up call? Yes No I was present when discharge instructions were given Patient Signature ___ Date Clinican/Nurse Signature Date Follow up: With: Address: When: Asuncion Buchanan [address] [place], [place] [address], [place] [address], [place] [phone] Business (1) Comments: Call to schedule your follow up in 1 month for [facility] Information: You may receive a survey from [facility] asking you to rate your care experience. Your feedback is important and will help us understand what we do well and how we can improve the quality of care we provide to you, your loved ones and our community. It???s an honor to serve you. Thank you for choosing [facility] HERE ARE THE MEDICATION CHANGES THAT OCCURRED DURING YOUR HOSPITAL STAY New Medications [facility], [address], [place] [id number], [phone] cephalexin (Keflex 500 mg Cap) 1 Capsules By Mouth every 12 hours for 4 Days. Post procedure. Refills: 0. Medications to Continue with No [...] capsule) By Mouth every day. cetirizine (Zyrtec) By Mouth every day. cholecalciferol (Vitamin D3) By Mouth every day. epinephrine (EpiPen 2-Giovani) 0.3 Milligram Intramuscular Once as needed Anaphylaxis. estradiol topical (estradiol 0.1 mg/g Vag Crm) apply pea sized amount to urethra 2x/wk. Refills: 0. famotidine (famotidine 20 mg Tab) 1 Tablets By Mouth 2 times a day. fluticasone nasal (fluticasone 0.05 mg/inh Nasal [place]) 2 Sprays Nasal Inhalation every day. fluticasone nasal (Xhance 93 mcg/inh nasal spray) 2 times a day. fluticasone-vilanterol (Breo Ellipta 200 mcg-25 mcg/inh inhalation powder) 1 Inhalation Inhalation every day. levothyroxine (levothyroxine 100 mcg (0.1 mg) Tab) 1 Tablets By Mouth every day. montelukast (montelukast 10 mg Tab) 1 Tablets By Mouth once a day (in the evening). multivitamin (Multi Vitamins oral tablet) 1 Tablets By Mouth every day. nitrofurantoin (Macrobid 100 mg Cap) 1 Capsules By Mouth As Directed. take 1 tablet within 1 hour before or after intercourse to prevent infection.. Refills: 3. orphenadrine (orphenadrine compounding powder) as needed Migraine headache. pantoprazole (Pantoprazole [address] Tab) 1 Tablets By Mouth every day. Refills: 1. PATIENT EDUCATION INFORMATION Instructions: [facility] [place], [place] Post-Operative Instructions for Bulkamid Congratulations on starting your journey towards symptom relief! Below you will find basic post-operative instructions. Activity and Lifestyle Instructions ??? After your procedure, you may be allowed to return to normal non-strenuous activity. If you had sedation, you may be groggy, and your physician may encourage you to rest. ??? You may resume intercourse. ??? If you are on your menstrual cycle, you may use tampons. ??? You can resume your normal exercise program 24 hours following the procedure if blood has cleared from your urine. If you engage in highly strenuous exercise such as CrossFit, you may want to wait 48-72 hours. ??? You may feel discomfort or irritation to the bladder and urethra following the procedure. (more content not included)... Normal [facility] C Urineon 05-22-2024 Bacteria identified Cx Nom (U) Microbiology PROCEDURE: Urine Culture [R1] SOURCE: U CleanCatch BODY SITE: COLLECTED DATE/TIME: 05/20/2024 07:49 EST RECEIVED DATE/TIME: 05/20/2024 11:21 EST START DATE/TIME: 05/20/2024 11:21 EST FREE TEXT SOURCE: Dewayne VILLEGAS, Asuncion Buchanan MD, Asuncion London FINAL REPORTS Final Report [] Verified Date/Time: 05/22/2024 07:12 EST 6,000 cfu/ml Mixed skin contaminants Performing Locations R1: This test was performed at: [facility], [address] [place] [address], [id number] , [place], Normal [facility] Comment on above: Performed By: #### 2 [id number] #### [facility] [address] [place] [address] Performed By: #### 2 [id number] ####[facility] [id number] [place] [address] CNPNon 05-22-2024 CNPN Telephone (GASTA5) ----- MUNIRA CHESTER ([id number]) 1950 F Date Time Provider Department 05/22/24 KASEY FALLON GASTA5 During your visit today, we recorded the following information about you: Hollis Mckeon RN 05/22/2024 11:42 AM Signed Pt called, asked for return call. Called pt and question is what approval, upper or lower approvch for the enteroscopy procedure in June, she thought lower, but was told upper and concerned if lower, needs specific bowel prep, does better with miralax. MARIA D Hilliard Ann, RN 05/25/2024 11:04 AM Signed Called pt and let her know Dr. Fallon confirmed approach is lower for procedure. Hollis Mckeon RN Allergies As of Date: 05/22/2024 Noted Allergy Reaction AMOXICILLIN 12/27/2023 14 - Other: See Comments CONTRAST DYE 12/08/2007 SULFA (SULFONAMIDE ANTIBIOTICS) 12/08/2007 Date Reviewed: 12/27/2023 Reviewed by: Rakesh Gaspar MA - Fully Assessed Reason for Visit: Patient Question [1477] Prescriptions as of 05/25/2024 - amLODIPine (NORVASC) 5 mg tablet Take by mouth once daily. - Cetirizine 10 mg cap Take by mouth. - famotidine (PEPCID) 20 mg tablet Take 20 mg by mouth two times a day. - iron polysaccharide complex (FERREX 150 ORAL) Take by mouth every other day. - codeine phosphate/guaifenesin (CODEINE-GUAIFENESIN ORAL) Take by mouth. - pantoprazole DR (PROTONIX) 40 mg tablet Take 40 mg by mouth two times a day. - fluticasone propionate (XHANCE) 93 mcg/actuation nasal spray Use in each nostril two times a day. - nitrofurantoin macrocrystal (MACRODANTIN) 100 mg capsule 100 mg by ORAL/FEEDING TUBE route. - betamethasone valerate 0.1 % cream Apply to affected area. - cholecalciferol, vitamin D3, (D3-2000 ORAL) Take by mouth. - calcium carbonate/vitamin D3 (CALCIUM + D ORAL) Take by mouth. - iron bis-glycinat/vit C/FA/B12 (GENTLE IRON ORAL) Take by mouth. - mv-min/iron/folic/calcium /vitK (WOMEN'S MULTIVITAMIN ORAL) Take by mouth. - vit A/vit C/biotin/zinc/copper (CCKT-UOLF-VHNP,VIT A,C-BIOTIN, ORAL) Take by mouth. - aspirin 325 mg cap Take by mouth. - Ibuprofen 200 mg cap Take by mouth every 6 hours as needed. - acetaminophen (TYLENOL) 325 mg tablet Take 650 mg by mouth every 6 hours as needed. - peg 3350-Electrolytes (GOLYTELY) 236-22.74-6.74 -5.86 gram suspension Add water to powder in the jug up to the fill line. Starting at 6pm the evening before the colonsocopy, drink 8 oz every 15 minutes until half to three quarters of the jug is consumed AND returns are clear. Take a break. Finish the remainder of the jug 4 hours before your procedure. - fluticasone-vilanterol (BREO ELLIPTA) 100-25 mcg/dose inhaler Inhale 1 Inhalation as instructed once daily. - EPINEPHrine (EPIPEN) 0.3 mg/0.3 mL auto-injector Inject 0.3 mg intramuscularly as needed. - fluticasone (FLONASE) 50 mcg/actuation nasal spray Use 1 [place] in each nostril once daily. - atorvastatin (LIPITOR) 10 mg tablet Take 10 mg by mouth once daily. - albuterol HFA (PROAIR HFA) 90 mcg/actuation inhaler Inhale 2 Puffs as instructed. - montelukast (SINGULAIR) 10 mg tablet Take 10 mg by mouth daily at bedtime. - alendronate (FOSAMAX) 70 mg tablet Take [...] tablet daily. Problem List As Of Date 05/22/2024 Noted Resolved Episodic tension-type headache, not intractable*02/06/2016 Achilles tendinitis of right lower extremity [M*04/11/2016 Encounter Status:Closed by HOLLIS MCKEON on 05/22/24 Normal [facility] UA with Cult Rflxon 05-21-19 25 Bacteria Auto Ql (U) 2+ /HPF Abnormal Trace Fish er [facility] Comment on above: Performed By: #### 4 [id number] #### [facility] [address] [place] [address] Bilirubin Ql (U) Negative Normal Negative [facility] Comment on above: Performed By: #### 4 [id number] #### [facility] [address] [place] [address] Calcium oxalate crystals Computer assisted Ql (U) Present Abnormal [facility] Comment on above: Performed By: #### 4 [id number] #### [facility] [address] [place] [address] Clarity (U) Turbid Abnormal Clear [facility] Comment on above: Performed By: #### 4 [id number] #### [facility] [address] [place] [address] Color (U) Yellow Normal Yellow [facility] Comment on above: Result Comment: Micr oscopic readings are only performed on those samples that meet specific criteria set forth by [facility]. Performed By: #### 4 [id number] #### [facility] [address] [place] [address] Epithelial cells.squamous Auto (Urine sed) [#/Area] 0-2 Invalid Interpretation Code [facility] Comment on above: Performed By: #### 4 [id number] #### [facility] [address] [place] [address] Glucose Ql (U) Negative Normal Negative [facility] Comment on above: Performed By: #### 4 [id number] #### [facility] [address] [place] [address] Hemoglobin Auto test strip (U) [Mass/Vol] Negative Normal Negative [facility] Comment on above: Performed By: #### 4 [id number] #### [facility] [address] [place] [address] Hyaline casts LM Ql (Urine sed) 4-10 Abnormal 0-3 [facility] Comment on above: Performed By: #### 4 [id number] #### [facility] [address] [place] [address] Ketones Auto test strip Ql (U) Negative Normal Negative [facility] Comment on above: Performed By: #### 4 [id number] #### [facility] [address] [place] [address] Leukocyte esterase Auto test strip Ql (U) 25 Rosemarie/uL Normal Negative [facility] Comment on above: Performed By: #### 4 [id number] #### [facility] [address] [place] [address] Mucus Auto Ql (U) 4+ [id number] Abnormal Negative F [facility] Comment on above: Performed By: #### 4 [id number] #### [facility] [address] [place] [id number] Nitrite Auto test strip Ql (U) Negative Normal Negative [facility] Comment on above: Performed By: #### 4 [id number] #### [facility] [address] [place], [place] [address] pH (U) 5.5 [pH] Invalid Interpretation Code 5.0-9.0 [facility] Comment on above: Performed By: #### 4 [id number] #### [facility] [address] [place], [place] [address] Protein Ql (U) 1+ mg/dL Abnormal Negative [facility] Comment on above: Performed By: #### 4 [id number] #### [facility] [address] [place], [place] [address] Specific gravity (U) [Rel density] 1.034 Invalid Interpretation Code 1.005-1.03 0 [facility] Comment on above: Performed By: #### 4 [id number] #### [facility] [address] [place], [place] [address] Urobilinogen (U) [Mass/Vol] 2 mg/dL Abnormal Negative [facility] Comment on above: Performed By: #### 4 [id number] #### [facility] [address] [place], [place] [address] WBC Auto (Urine sed) [#/Area] 6-15 Abnormal 0-5 [facility] Comment on above: Performed By: #### 4 [id number] #### [facility] [address] [place], [place] [address] Type of Urine collection method Clean Catch Normal [facility] Comment on above: Performed By: #### 4 [id number] #### [facility] [address] [place] [address] URINALYSISOrdered By: SYSTEM SYSTEM on 05-20-2024 Bacteria Auto Ql (U) 2+ /HPF Invalid Interpretation Code Trace/HPF [facility] UA Auto SS Bilirubin Ql (U) Negative Normal Negativemg /dL [facility] UA Auto SS Calcium oxalate crystals Computer assisted Ql (U) Present graded/HPF Invalid Interpretation Code [facility] UA Auto SS Clarity (U) Turbid *ABN* (05/20/24 7:49 AM) Invalid Interpretation Code Clear [facility] UA Auto SS Color (U) Yellow 1 (05/20/24 7:49 AM) Normal Yellow [facility] UA Auto SS Comment on above: Interpretive Data: M icroscopic readings are only performed on those samples that meet specific criteria set forth by [facility]. Epithelial cells.squamous Auto (Urine sed) [#/Area] 0-2 graded/HPF Invalid Interpretation Code [facility] UA Auto SS Glucose Ql (U) Negative Normal Negativemg /dL [facility] UA Auto SS Hemoglobin Auto test strip (U) [Mass/Vol] Negative Normal Negativemg /dL [facility] UA Auto SS Hyaline casts LM Ql (Urine sed) 4-10 graded/LPF Invalid Interpretation Code 0-3graded/ LPF [facility] UA Auto SS Ketones Auto test strip Ql (U) Negative Normal Negativemg /dL [facility] UA Auto SS Leukocyte esterase Auto test strip Ql (U) 25 Rosemarie/uL Rosemarie/uL Normal NegativeLe u/uL [facility] UA Auto SS Mucus Auto Ql (U) 4+ graded/LPF Invalid Interpretation Code Negativegr aded/LPF [facility] UA Auto SS Nitrite Auto test strip Ql (U) Negative Normal Negativemg /dL [facility] UA Auto SS pH (U) 5.5 *NA* (05/20/24 7:49 AM) Invalid Interpretation Code 5.0 - 9.0 [facility] UA Auto SS Protein Ql (U) 1+ mg/dL Invalid Interpretation Code Negativemg /dL [facility] UA Auto SS Specific gravity (U) [Rel density] 1.034 *NA* (05/20/24 7:49 AM) Invalid Interpretation Code 1.005 - 1.030 [facility] UA Auto SS Urobilinogen (U) [Mass/Vol] 2 mg/dL Invalid Interpretation Code Negativemg /dL [facility] UA Auto SS WBC Auto (Urine sed) [#/Area] 6-15 graded/HPF Invalid Interpretation Code 0-5graded/ HPF [facility] UA Auto SS URINALYSISOrdered By: Tez Marks on 05-20-2024 UA Spec Desc Clean Catch (05/20/24 7:49 AM) Normal [facility] UA Auto SS Ambulatory Visit Summaryon 0 04-22-2024 Ambulatory Visit Summary Ambulatory Visi t Summary MUNIRA CHESTER DOB:1950 Visit Date:04/22/2024 Ambulatory Visit Instructions Your Diagnosis [...] spray) fluticasone nasal (fluticasone 0.05 mg/inh Nasal [place]) fluticasone-vilanterol (Breo Ellipta 200 mcg-25 mcg/inh inhalation [...] Follow-Up Appointments Saturday 7:30 AM EST Where: [facility] Saturday 9:30 AM EDT Where: [facility] You Need to Schedule the [...] fluticasone nasal (fluticasone 0.05 mg/ inh Nasal [place]) 2 Sprays Nasal Inhalation Every day Contact [...] prescribing ph (more content not included)... Normal [facility] Urology Office/Clinic Noteon 04-22-2024 Urology Office/Clinic Note Urology Office/Clinic Note Chief Complaint 2 [place] path review HPI Staff 73yr old female [...] UTI (N (more content not included)... Normal [facility] Comment on above: Result Comment: Elec tronically Signed By: Asuncion Buchanan MD\.br\Date and Time Signed: 04/22/24 11:55 EST\.br\Electronically Co-Signed By: Ailyn Aranda\.br\Date and Time Co-Signed: 04/22/24 11:33 EST Surgical Pathology Reporton 04-17-2024 Surgical Pathology Report [facility] [address] [place] [address]- Surgical Pathology Report Collected Date/Time: 04/07/2024 10:02 EST Pathologist: Fabiano VILLEGAS PhD, Dwight Parra Received Date/Time: 04/07/2024 10:58 EST Asuncion Buchanan MD, MD, Asuncion Hightower Surgical Pathology Report - [...] is entirely submitted in one cassette. (DC) DC:[facility] Microscopic Description Microscopic examination performed unless gross only specified. This report was transcribed using voice recognition technology and might contain unintended computerized roundhouse firer/fireman errors. Normal [facility] Comment on above: Performed By: #### 4 [id number] #### [facility] [address] [place] [address] Main OR Intraoperative Recor don 04-08-2024 Main OR Intraoperative Record Main OR Intraoperative Record IntraOp Document Type FT Summary Primary Physician: Asuncion Buchanan MD Finalized Date/Time: 04/08/24 08:33:19 Pt. Name: MUNIRA CHESTER/Sex: 1950 Female Med Rec #: [id number] Physician: Asuncion Buchanan MD Financial #: [id number] Pt. Type: A Room/Bed: Admit/Disch: 04/07/24 07:20:36 - 04/07/24 12:00:00 Institution: Case Times FT Entry 1 Patient Times In Room 04/07/24 09:46:00 Out Room 04/07/24 10:20:00 Procedure Times Start 04/07/24 09:59:00 Stop 04/07/24 10:16:00 Anesthesia Times Start 04/07/24 09:46:00 Stop 04/07/24 10:20:00 Last Modified By: Santy KILLIAN, Mary Calabrese 04/07/24 10:21:24 General Comments: 04/08/24 Chart opened to review and send charges [facility] Case Attendance FT Entry 1 Entry 2 Entry 3 Case Attendee Linnette FULLER, Bravo Buchanan MD, Asuncion Madera RN, Mary Calabrese Role Performed Anesthesiologist Surgeon - Primary Cold Press Operator - Primary Aircraft Mechanic Armament Time In 04/07/24 09:46:00 04/07/24 09:46:00 04/07/24 09:46:00 Time Out 04/07/24 10:20:00 04/07/24 10:16:00 04/07/24 10:20:00 Procedure CYSTOSCOPY TURB(.) CYSTOSCOPY TURB(.) CYSTOSCOPY TURB(.) Comments DR. CAMACHO SUPERVISING Last Modified By: Santy RN, Mary Madera RN, Mary Raymundo RN 04/07/24 10:21:25 04/07/24 10:21:25 04/07/24 10:21:25 Entry 4 Entry 5 Case Attendee Sukhjinder RN, CNOR, Luci Valenzuela LPN, Meeta Velazquez Role Performed Staff - Other Scrub - Primary Time In 04/07/24 09:46:00 04/07/24 09:46:00 Time Out 04/07/24 10:20:00 04/07/24 10:20:00 Procedure CYSTOSCOPY TURB(.) CYSTOSCOPY TURB(.) Comments MINDY HANNA STUDENT Last Modified By: Santy RN, Mary Raymundo RN 04/07/24 10:21:25 04/07/24 10:21:25 General Comments: gavin mobile battery 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 MARIA D kaisertenter frame operator Protocols FT Pre-Care Text: Implements protective measures [...] RN, Missler RN, CNOR, Luci Velazquez, Nicolas NIETON, Meeta Ramos Time Out Complete 04/07/24 09:58:00 [...] and tissue Entry 1 Skin Integrity Intact, [place], Warm, & Skin Abnormality No Dry Outcomes Met? Yes Last Modified By: Santy KILLIAN, Mary Calabrese 04/07/24 10:11:12 Post-Care Text: The patient is [...] Procedure CYST (more content not included)... Normal [facility] Discharge Instructionson Discharge Instructions Discharge Instruc tions [...] spray) fluticasone nasal (fluticasone 0.05 mg/inh Nasal [place]) fluticasone-vilanterol (Breo Ellipta 200 mcg-25 mcg/inh inhalation [...] VILLEGAS, Asuncion [place] Where: [facility] [address] [address]- New Follow Up Appointments after Discharge Follow Up with Asuncion Buchanan When: Comments: Office to call to schedule your follow up: white removal and voiding trial in 1-2 days once urine is clear. Follow up in 1-2 weeks for pathology review. Where: [facility] [phone] Business (1) Medications What How Much When Why Instructions Next Dose New ciprofloxacin (Cipro 500 mg Tab) 1 Tablets By Mouth Every 12 hours Duration: 1 Days Start morning of white removal in 1-2 days Pickup at [facility] New oxybutynin (oxybutynin 5 mg Tab) 1 Tablets By Mouth 3 times a day as needed for bladder spasms Pickup at [facility] Unchanged albuterol (ProAir HFA 90 mcg/ [...] fluticasone nasal (fluticasone 0.05 mg/ inh Nasal [place]) 2 Sprays Nasal Inhalation Every day Unchanged [...] day Unch (more content not included)... Normal [facility] Comment on above: Result Comment: Elec tronically Signed By: Gilbert KILLIAN, Nasrin Mitchell\.melissa\Date and Time Signed: 04/07/24 10:41 EST Inpatient Patient Summaryon 04-07-2024 Inpatient Patient Summary Inpatient Patient Summary [place] [id number] [facility] Clinical Discharge Instructions PERSON INFORMATION Name: MUNIRA CHESTER [facility]#:[id number] PHYSICIANS Admitting Physician: Asuncion Buchanan MD Attending Physician: Asuncion Buchanan MD PCP: ANDREA GOLDEN DO Discharge Diagnosis: Urethral caruncle; Urethral tumor Comment: PATIENT EDUCATION INFORMATION Instructions: Cook - Post Op INstructions for Bladder Tumor, Bladder Biopsy (CUSTOM) Medication Leaflets: Follow up: With: Address: When: Asuncion Buchanan [address], [place], [facility] [address] [place] [address] [phone] Business (1) Comments: Office to call to schedule your follow up: white removal and voiding trial in 1-2 days once urine is clear. Follow up in 1-2 weeks for pathology review. Type Location Start Finish [facility] URO Office Visit [facility] Tariq 04/22/2024 10:45 AM 04/22/2024 11:00 AM Confirmed MEDICATION LIST New Medications [facility], [address] [place], [place] [id number], [phone] ciprofloxacin (Cipro 500 mg Tab) 1 Tablets [...] day. fluticasone nasal (fluticasone 0.05 mg/inh Nasal [place]) 2 Sprays Nasal Inhalation every day. fluticasone [...] By Mouth every day. Refills: 1. Comment: Normal [facility] Main OR PACU I Recordon 03-19 Main OR PACU I Record Main OR PACU I Rec ord PACU Phase I Document Type FT Summary Primary Physician: Asuncion Buchanan MD Finalized Date/Time: 04/07/24 12:46:06 Pt. Name: MUNIRA CHESTER/Sex: 1950 Female Med Rec #: [id number] Physician: Asuncion Buchanan MD Financial #: [id number] Pt. Type: A Room/Bed: AS10/ Admit/Disch: 04/07/24 07:20:36 - 04/07/24 12:00:00 Institution: [...] By: Pam Harris RN 04/07/24 12:46 Normal [facility] Main OR PACU II Recordon Main OR PACU II Record Main OR PACU II R ecord PACU Phase II Document Type FT Summary Primary Physician: Asuncion Buchanan MD Finalized Date/Time: 04/07/24 12:11:40 Pt. Name: MUNIRA CHESTER/Sex: 1950 Female Med Rec #: [id number] Physician: Asuncion Buchanan MD Financial #: [id number] Pt. Type: A Room/Bed: Admit/Disch: 04/07/24 07:20:36 - Institution: Case Times [...] By: Nasrin Stacy RN 04/07/24 12:11 Normal [facility] Main OR Preoperative Recordo n 04-07-2024 Main OR Preoperative Record Main OR Preoperative Record PreOp Document Type FT Summary Primary Physician: Asuncion Buchanan MD Finalized Date/Time: 04/07/24 10:06:13 Pt. Name: MUNIRA CHESTER /Sex: 1950 Female Med Rec #: [id number] Physician: Asuncion Buchanan MD Financial #: [id number] Pt. Type: A Room/Bed: [facility] Admit/Disch: 04/07/24 07:20:36 - Institution: Case Times [...] By: Mary Madera RN 04/07/24 10:06 Normal [facility] Operative Reporton Operative Report Operative Report Patient: MUNIRA CHESTER Age: 73 years Sex: Female : 1950 Associated Diagnoses: None Author: Asuncion Buchanan MD Procedure Procedure Date: 04/07/2024. Confirmed: patient, procedure, site, safety procedures followed. Performed by: Asuncion Buchanan MD, anesthesiologist (ALINA Noble). Type of procedure: Cystoscopy, urethral tumor and [...] We began the procedure using a 22.5 [place] rigid cystoscope, 30 degree lens, and inserted [...] was used to achieve hemostasis. An 18 [place] White catheter was inserted into the bladder [...] review.. Impression and Plan Diagnosis Urethral tumor (MTC07-MD D49.59, Discharge, Medical). Urethral caruncle (CZY28-OC N36.2, Discharge, Medical). Diagnosis Urethral tumor (AEE30-CL D49.59, Discharge, Medical). Urethral caruncle (BVI74-LT N36.2, Discharge, Medical). Normal [facility] Comment on above: Result Comment: Elec tronically Signed By: Dewayne VILLEGAS, Asuncion London\.br\Date and Time Signed: 04/07/24 10:46 EST Outpatient Surgery Discharge Instructionon 04-07-2024 Outpatient Surgery Discharge Instruction Outpatient Surgery Discharge Instruction [place] [id number] Patient Discharge Instructions PERSON INFORMATION Name: MUNIRA [...] THE NEAREST EMERGENCY ROOM OR CALL 911 I, CHESTER MUNIRA, have received the attached patient education materials/instructions and have verbalized understanding: May we do a follow up call? Yes No I was present when discharge instructions were given Patient Signature ___ Date Clinican/Nurse Signature Date Follow up: With: Address: When: Asuncion Cedeño Eder Mccann, [place] [address], [address] [phone] Business (1) Comments: Office to call to schedule your follow up: white removal and voiding trial in 1-2 days once urine is clear. Follow up in 1-2 weeks for pathology review. Type Location Start Finish State URO Office Visit [facility] EU Tariq 04/22/2024 10:45 AM 04/22/2024 11:00 AM Confirmed Pharmacy Information: You may receive a survey from [facility] asking you to rate your care experience. Your feedback is important and will help us understand what we do well and how we can improve the quality of care we provide to you, your loved ones and our community. It???s an honor to serve you. Thank you for choosing [facility] HERE ARE THE MEDICATION CHANGES THAT OCCURRED DURING YOUR HOSPITAL STAY New Medications [facility] [employer] [address], [address] [place], [place] [id number], [phone] ciprofloxacin (Cipro 500 mg Tab) 1 Tablets [...] day. fluticasone nasal (fluticasone 0.05 mg/inh Nasal [place]) 2 Sprays Nasal Inhalation every day. fluticasone [...] 1. PATIENT EDUCATION INFORMATION Instructions: [facility] [place], [place] Post-Operative Instructions *Even though there are no visible incisions, the urethra is quite raw on the inside and you need to follow some instructions to minimize the risks of bleeding and disturbing the area over the next 4 weeks. *The catheter in the (more content not included)... Normal [facility] C Urineon 03-26-2024 Bacteria identified Cx Nom [...] Locations R1: This test was performed at: [facility], [address] [place] [address], [address] [place] [address], [facility] Comment on above: Performed By: #### 2 [id number] #### [facility] [address] [place] [address] XR Chest 2 Viewson XR Chest 2 [...] mGy = n/a DAP = n/ Normal [facility] BMPon 03-24-2024 Anion gap [Moles/Vol] 12 mmol/L Normal 6-16 [facility] Comment on above: Performed By: #### 2 [id number] #### [facility] [address] [place] [address] Calcium [Mass/Vol] 9.2 mg/dL Normal 8.9-11.1 [facility] Comment on above: Performed By: #### 2 [id number] #### [facility] [address] [place] [address] Chloride [Moles/Vol] 106 mmol/L Normal 101-111 [facility] Comment on above: Performed By: #### 2 [id number] #### [facility] [address] [place] [address] CO2 [Moles/Vol] 27 mmol/L Normal 21-31 [facility] Comment on above: Performed By: #### 2 [id number] #### [facility] [address] [place] [address] Creatinine [Mass/Vol] 0.7 mg/dL Normal 0.5-1.3 [facility] Comment on above: Performed By: #### 2 [id number] #### [facility] [address] [place] [address] Glucose [Mass/Vol] 96 mg/dL Normal 55-199 [facility] Comment on above: Performed By: #### 2 [id number] #### [facility] [address] [place] [address] Potassium [Moles/Vol] 3.5 mmol/L Normal 3.5-5.3 [facility] Comment on above: Performed By: #### 2 [id number] #### [facility] [address] [place] [address] Sodium [Moles/Vol] 141 mmol/L Normal 135-145 [facility] Comment on above: Performed By: #### 2 [id number] #### [facility] [address] [place] [address] Urea nitrogen [Mass/Vol] 14 mg/dL Normal 5-21 [facility] Comment on above: Performed By: #### 2 [id number] #### [facility] [address] [place] [address] Urea nitrogen/Creatinine [Mass ratio] 20 No Units Normal 10-20 [facility] Comment on above: Performed By: #### 2 [id number] #### [facility] [address] [place] [address] CBC w/ Auto Diffon 5 Basophils/100 WBC (Bld) 0.4 % Normal 0.0-2.0 F [facility] Comment on above: Performed By: #### 2 [id number] #### [facility] [address] [place] [address] Basophils/Leukocytes Auto (Bld) [Pure # fraction] 0.0 E9/L Normal 0.0-0.2 [facility] Comment on above: Performed By: #### 2 [id number] #### [facility] [address] [place] [address] Eosinophils (Bld) [#/Vol] 0.2 E9/L Normal 0.0-0.5 [facility] Comment on above: Performed By: #### 2 [id number] #### [facility] [address] [place] [address] Eosinophils/100 WBC (Bld) 2.2 % Normal 0.0-8.0 [facility] Comment on above: Performed By: #### 2 154821 #### [facility] [address] [place] [address] Erythrocyte distribution width (RBC) [Ratio] 14.6 % High 10.9-14.2 [facility] Comment on above: Performed By: #### 2 [id number] #### [facility] [address] [place] [address] Hematocrit (Bld) [Volume fraction] 36.8 % Normal 34.0-46.0 [facility] Comment on above: Performed By: #### 2 [id number] #### [facility] [address] [place] [address] Hemoglobin (Bld) [Mass/Vol] 12.8 g/dL Normal 12.0-16.0 [facility] Comment on above: Performed By: #### 2 [id number] #### [facility] [address] [place] [address] Lymphocytes (Bld) [#/Vol] 1.3 E9/L Normal 1.0-4.0 [facility] Comment on above: Performed By: #### 2 [id number] #### [facility] [address] [place] [address] Lymphocytes/100 WBC (Bld) 12.1 % Low 14.0-50.0 [facility] Comment on above: Performed By: #### 2 [id number] #### [facility] [address] [place] [address] MCH (RBC) [Entitic mass] 31.7 pg Normal 27.0-34.0 [facility] Comment on above: Performed By: #### 2 [id number] #### [facility] [address] [place] [address] MCHC (RBC) [Mass/Vol] 34.7 g/dL Normal 31.4-36.0 [facility] Comment on above: Performed By: #### 2 603797 #### [facility] [address] [place] [address] MCV (RBC) [Entitic vol] 91.5 fL Normal 80.0-100.0 F [facility] Comment on above: Performed By: #### 2 854824 #### [facility] [address] [place] [address] Monocytes (Bld) [#/Vol] 0.9 E9/L Normal 0.2-1.0 F [facility] Comment on above: Performed By: #### 2 852124 #### [facility] [address] [place] [address] Neutrophils (Bld) [#/Vol] 8.1 E9/L High 2.0-7.5 [facility] Comment on above: Performed By: #### 2 864423 #### [facility] [address] [place] [address] Neutrophils/100 WBC (Bld) 76.6 % High 36.0-75.0 [facility] Comment on above: Performed By: #### 2 605128 #### [facility] [address] [place] [address] Platelet mean volume (Bld) [Entitic vol] 8.3 fL Normal 6.4-10.8 [facility] Comment on above: Performed By: #### 2 539126 #### [facility] [address] [place] [address] Platelets (Bld) [#/Vol] 336.0 E9/L Normal 150. 0-500. 0 [facility] Comment on above: Performed By: #### 2 [id number] #### [facility] [address] [place] [address] RBC (Bld) [#/Vol] 4.0 E12/L Low 4.3-5.9 [facility] Comment on above: Performed By: #### 2 [id number] #### [facility] [address] [place] [address] WBC corrected for nucl RBC Auto (Bld) [#/Vol] 10.6 E9/L Normal 4.0-11.0 [facility] Comment on above: Performed By: #### 2 [id number] #### [facility] [address] [place] [address] CHEMISTRYOrdered By: SYSTEM SYSTEM on 03-24-2024 Anion [...] 32.8 s Normal 25.1 - 36.5 second(s) [facility] Auto Coag Comment on above: Interpretive Data: Iram osborn 15 days - 4 weeks 1 - [...] the same coagulation reagent and instrumentation as [facility]. Currently there are no coagulation studies available worldwide for children to 14 days, and no normal ranges. Heparin therapeutic range (represented by Anti-Factor Xa activity of 0.2 - 0.4 U/mL) corresponds to PTT of 56.6 - 109.0 sec. INR Coag (PPP) [Relative time] 1.06 {INR} Invalid Interpretation Code [facility] Auto Coag Comment on above: Interpretive Data: I NR results are specifically intended to assess patients stabilized on long-term Anticoagulation therapy suggested INR s Less Intensive Anticoagulation 2.0 3.0 Conventional Range 3.0 4.5 PT Coag (PPP) [Time] 11.9 s Normal 9.4 - 1 2.5 second(s) [facility] Auto Coag Comment on above: Interpretive Data: [...] the same coagulation reagent and instrumentation as [facility]. Currently there are no coagulation studies available [...] Coag (PPP) [Time] 32.8 second(s) Normal 25.1-36.5 [facility] Comment on above: Result Comment: Para meter [...] the same coagulation reagent and instrumentation as [facility]. Currently there are no coagulation studies available worldwide for children to 14 days, and no normal ranges. Heparin therapeutic range (represented by Anti-Factor Xa activity of 0.2 - 0.4 U/mL) corresponds to PTT of 56.6 - 109.0 sec. Performed By: #### 1 [id number] #### [facility] [address] [place] [address] INR Coag (PPP) [Relative time] 1.06 {INR} Invalid Interpretation Code [facility] Comment on above: Result Comment: INR results are specifically intended to assess patients stabilized on long-term Anticoagulation therapy suggested INR???s ???Less Intensive Anticoagulation??? 2.0 ??? 3.0 Conventional Range 3.0 ??? 4.5 Performed By: #### 1 [id number] #### [facility] [address] [place] [address] PT Coag (PPP) [Time] 11.9 second(s) Normal 9.4-12.5 [facility] Comment on above: Result Comment: 15 d [...] the same coagulation reagent and instrumentation as [facility]. Currently there are no coagulation studies available worldwide for children to 14 days, and no normal ranges. Performed By: #### 1 [id number] #### [facility] [address] [place] [address] UA with Cult [employer]xon 03-24-19 25 Bacteria Auto Ql (U) Trace Normal Trace Fish er [facility] Comment on above: Performed By: #### 4 [id number] #### [facility] [address] [place] [address] Bilirubin Ql (U) Negative Normal Negative [facility] Comment on above: Performed By: #### 4 [id number] #### [facility] [address] [place] [address] Clarity (U) Turbid Abnormal Clear [facility] Comment on above: Performed By: #### 4 [id number] #### [facility] [address] [place] [address] Color (U) Yellow Normal Yellow [facility] Comment on above: Result Comment: Micr oscopic readings are only performed on those samples that meet specific criteria set forth by [facility]. Performed By: #### 4 [id number] #### [facility] [address] [place] [address] Epithelial cells.squamous Auto (Urine sed) [#/Area] 0-2 Invalid Interpretation Code [facility] Comment on above: Performed By: #### 4 [id number] #### [facility] [address] [place] [address] Glucose Ql (U) Negative Normal Negative [facility] Comment on above: Performed By: #### 4 [id number] #### [facility] [address] [place] [address] Hemoglobin Auto test strip (U) [Mass/Vol] Negative Normal Negative [facility] Comment on above: Performed By: #### 4 [id number] #### [facility] [address] [place] [address] Hyaline casts LM Ql (Urine sed) 0-3 Normal 0-3 [facility] Comment on above: Performed By: #### 4 [id number] #### [facility] [address] [place] [address] Ketones Auto test strip Ql (U) Negative Normal Negative [facility] Comment on above: Performed By: #### 4 [id number] #### [facility] [address] [place] [address] Leukocyte esterase Auto test strip Ql (U) 25 Rosemarie/uL Normal Negative [facility] Comment on above: Performed By: #### 4 [id number] #### [facility] [address] [place] [address] Mucus Auto Ql (U) 3+ [id number] Abnormal Negative F [facility] Comment on above: Performed By: #### 4 [id number] #### [facility] [address] [place] [address] Nitrite Auto test strip Ql (U) Negative Normal Negative [facility] Comment on above: Performed By: #### 4 [id number] #### [facility] [address] [place] [address] pH (U) 5.5 [pH] Invalid Interpretation Code 5.0-9.0 [facility] Comment on above: Performed By: #### 4 [id number] #### [facility] [address] [place] [address] Protein Ql (U) 1+ mg/dL Abnormal Negative [facility] Comment on above: Performed By: #### 4 [id number] #### [facility] [address] [place] [address] RBC Ql (U) 21-30 Abnormal 0-3 [facility] Comment on above: Performed By: #### 4 [id number] #### [facility] [address] [place] [address] Specific gravity (U) [Rel density] 1.039 Invalid Interpretation Code 1.005-1.03 0 [facility] Comment on above: Performed By: #### 4 [id number] #### [facility] [address] [place] [address] Urobilinogen (U) [Mass/Vol] Negative Normal Negative [facility] Comment on above: Performed By: #### 4 [id number] #### [facility] [address] [place] [address] WBC Auto (Urine sed) [#/Area] 6-15 Abnormal 0-5 [facility] Comment on above: Performed By: #### 4 [id number] #### [facility] [address] [place] [address] Type of Urine collection method Clean Catch Normal [facility] Comment on above: Performed By: #### 4 [id number] #### [facility] [address] [facility] [place] [address] URINALYSISOrdered By: SYSTEM SYSTEM on 03-24-2024 Bacteria [...] that meet specific criteria set forth by [facility]. Epithelial cells.squamous Auto (Urine sed) [#/Area] [...] 21-30 graded/HPF Invalid Interpretation Code 0-3graded/ HPF [facility] UA Auto SS Specific gravity (U) [Rel density] 1.039 *NA* (03/24/24 7:56 AM) Invalid Interpretation Code 1.005 - 1.030 [facility] UA Auto SS Urobilinogen (U) [Mass/Vol] Negative Normal Negativemg /dL [facility] UA Auto SS WBC Auto (Urine sed) [#/Area] 6-15 graded/HPF Invalid Interpretation Code 0-5graded/ HPF [facility] UA Auto SS URINALYSISOrdered By: Tez Marks on 03-24-2024 UA Spec Desc Clean Catch (03/24/24 7:56 AM) Normal [facility] UA Auto SS eGFRon 03-24-2024 eGFR 92 mL/min/1.73 m2 Normal >=59 [facility] Comment on above: Performed By: #### 1 [id number] #### [facility] [address] [place] [address] Urine Cytology ([facility])on 04-29-2023 Microscopic exam Cytology (U) [Interp] Diagnosis Info Invalid Interpretation Code [facility] Comment on above: Result Comment: A:Ur ine,Urine:Post Cystoscopy Void Interpretation - A few clusters of urothelial cells with mild atypia; as post cystoscopy voided urine, low grade papillary urothelial neoplasm can not be excluded. Clinical correlation is indicated. Adequate cellularity for evaluation. CPT 60394 MicroScopic Description - Adequacy - Gross Description Site ID:A color Yellow fixative Alcohol Specimen designated Urine received in alcohol preservative and labeled with the patient???s name, consists of 90ml clear yellow fluid. Electronically signed by : on: 02/27/2024 13:00:36 Performed By: #### 1 [id number] #### [facility] [address] [place] [address] Inpatient Patient Summaryon 02-24-2024 Inpatient Patient Summary Inpatient Patient Summary [address] [id number] Clinical Summary Person Information Name: MUNIRA CHESTER Age: 73 Years : 1950 Sex: Female PCP: ANDREA GOLDEN DO Marital Status: Race: White Ethnicity: Non- or Language: Gambian Visit Id: Visit Reason: MIXED INCONTINENCE Speciality: Acuity: Enc Type: Outpatient Med Service: Surgery Arrival: 02/24/2024 09:03:30 Discharge: Dispo Type: Address: [address] [place] [id number] Provider Notes: Diagnosis: Intrinsic sphincter deficiency (ISD); [...] day. fluticasone nasal (fluticasone 0.05 mg/inh Nasal [place]) 2 Sprays Nasal Inhalation every day. fluticasone [...] Information: EU - Cystoscopy Discharge Instructions (CUSTOM) [facility] Main OR Intraoperative Recor don 02-24-2024 Main OR Intraoperative Record Main OR Intraoperative Record IntraOp Document Type FT[facility]O Summary Primary Physician: Asuncion Buchanan MD Finalized Date/Time: 02/24/24 10:21:12 Pt. Name: MUNIRA CHESTER/Sex: 1950 Female Med Rec #: [id number] Physician: Asuncion Buchanan MD Financial #: [id number] Pt. Type: O Room/Bed: / Admit/Disch: 02/24/24 [...] Kimberly A Role Performed Surgeon - Primary Cold Press Operator - Primary Scrub - Primary Time [...] URINE CYTOLOGY Primary Procedure Yes Primary Surgeon Dewayne VILLEGAS, Asuncion [place] Start 02/24/24 10:11:00 Stop 02/24/24 10:15:00 Anesthesia [...] Garcia 02/24/24 10:21 Libby Garcia 02/24/24 10:21 [facility] Main OR Preoperative Recordo n 02-24-2024 Main OR Preoperative Record Main OR Preoperative Record Holding Area Document Type FTURO Summary Primary Physician: Asuncion Buchanan MD Finalized Date/Time: 02/24/24 10:08:50 Pt. Name: MUNIRA CHESTER D.O.B./Sex: 1950 Female Med Rec #: [id number] Physician: Asuncion Buchanan MD Financial #: [id number] Pt. Type: O Room/Bed: / Admit/Disch: 02/24/24 [...] Complaints of Pain: No Skin Integrity Intact, [place], Warm, & Dry Vitals - EU Blood Pressure 151/84 Pulse 73 bpm Respirations 18 br/min SPO2 98 % Additional None RN Reviewed Yes Specimens Collected Last Modified By: Libby Garcia 02/24/24 10:08:49 Finalized By: Libby Garcia Document Signatures Signed By: Meeta Valenzuela LPN 02/24/24 09:32 Libby Garcia 02/24/24 10:08 Normal [facility] Operative Reporton Operative Report Operative Report Patient: MUNIRA CHESTER Age: 73 years Sex: Female : 1950 Associated Diagnoses: None Author: Asuncion Buchanan MD Procedure Operative Information Details: Date/ Time: 02/24/2024 10:21:00. Pre-Op Dx: Mixed Urinary Incontinence - N39.46. 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 Anesthesia Type: Local. Procedure: [...] Bulkamid under anesthesia once biopsy results.. Normal [facility] Comment on above: Result Comment: Elec tronically Signed By: Dewayne VILLEGAS, Asuncion [place]\.melissa\Date and Time Signed: 02/24/24 10:26 EST Outpatient Surgery Discharge Instructionon 02-24-2024 Outpatient Surgery Discharge Instruction Outpatient Surgery Discharge Instruction [address] [address] Patient Discharge Instructions PERSON INFORMATION Name: MUNIRA [...] have a fever over 100 degrees. I, MNUIRA CHESTER, have received the attached patient education [...] to serve you. Thank you for choosing [facility] Normal [facility] Urine Cytology ([facility])on 04-26-2023 Method of Extraction Post Cysto Void Normal [facility] Comment on above: Performed By: #### 1 [id number] #### [facility] [address] [place] [address] Number of Jars 1 Invalid Interpretation Code [facility] Comment on above: Performed By: #### 1 [id number] #### [facility] [address] [place] [address] Specimen Urine Normal [facility] Comment on above: Performed By: #### 1 [id number] #### [facility] [address] [place] [address] Type of Service Technical Only Normal [facility] Comment on above: Performed By: #### 1 [id number] #### [facility] [address] [place] [address] Urology Office/Clinic Noteon 02-05-2024 Urology Office/Clinic Note [...] after sex consiste (more content not included)... Normal [facility] Comment on above: Result Comment: Elec tronically Signed By: Dewayne VILLEGAS, Asuncion [place]\.br\Date and Time Signed: 02/05/24 12:35 EST\.br\Electronically Co-Signed By: Aide Valdes\.br\Date and Time Co-Signed: 02/05/24 11:50 EST [...] Locations R1: This [facility] was performed at: [facility], [address] [place] [address], [facility]- , , [facility] Comment on above: Performed By: #### 2 [id number] #### [facility] [address] [place] [address] CNOVon 12-27-2023 CNOV Office Visit (GGENMN ) ----- MUNIRA CHESTER ([id number]) 1950 F Date Time Provider Department 12/27/23 [...] balloon enteroscopy Kasey Fallon MD 12/27/2023 Staff Talent Acquisition Specialist [facility] [place] [facility] , REFERRING PROVIDER: Jones Ace [address] [facility] [address] REASON FOR REFERRAL: Small bowel stricture HISTORY: [...] (FLONASE) 50 mcg/actuation nasal spray Use 1 [place] in each nostril once daily. atorvastatin (LIPITOR) [...] REFLUX HYPERTENSION (more content not included)... Normal [facility] CNPNon 12-25-2023 CNPN Telephone (GASTA5) ----- MUNIRA CHESTER ([id number]) 1950 F Date Time Provider Department 12/25/23 [...] or can cx. Call cell phone at [phone]. MARIA D Hilliard Ann, RN 12/26/2023 9:10 [...] Fully Assessed Reason for Visit: Patient Question [8037] Prescriptions as of 12/26/2023 - fluticasone-vilanterol (BREO ELLIPTA) 100-25 mcg/dose inhaler Inhale 1 Inhalation as instructed once daily. - Butalbital-Acetaminophen- Caff (FIORICET) 50-300-40 mg cap Take by mouth. - EPINEPHrine (EPIPEN) 0.3 mg/0.3 mL auto-injector Inject 0.3 mg intramuscularly as needed. - fluticasone (FLONASE) 50 mcg/actuation nasal spray Use 1 [place] in each nostril once daily. - atorvastatin [...] by HOLLIS MCKEON on 12/25/23 Normal [facility] RF Small bowel Views W contr ast Rhys 12-24-2023 IMPRESSION: Slow tra nsit. No dilated small bowel. No visualized stricture. Prosthodontist: PSCB Transcribe Date/Time: Dec 24 2023 3:37P [...] Contrast: ORAL: 855 ml of EZPAQUE RESULT: Calciner Operator Helper radiograph shows no dilated bowel loops. Right [...] of narrowing identified. [facility] * * *Final Report* * [...] Contrast: ORAL: 855 ml of EZPAQUE RESULT: Calciner Operator Helper radiograph shows no dilated bowel loops. Right [...] No dilated small bowel. No visualized stricture. [facility] Date/Time: Dec 24 2023 3:37P Dictated by : HAYDEN REEVES MD This examination was interpreted and the report reviewed and electronically signed by: HAYDEN REEVES MD on Dec 24 2023 3:40PM EST [facility] Radiology Study observation (narrative) Jose ramos [facility] RF Small bowel Views W contr ast POOrdered By: [facility] Provider on 12-24-2023 [facility] XR SMALL BOWEL SERIESon XR SMALL BOWEL [...] Contrast: ORAL: 855 ml of EZPAQUE RESULT: Calciner Operator Helper radiograph shows no dilated bowel loops. Right [...] No dilated small bowel. No visualized stricture. Prosthodontist: [facility] Transcribe Date/Time: Dec 24 2023 3:37P Dictated by : HAYDEN REEVES MD This examination was interpreted and the report reviewed and electronically signed by: HAYDEN REEVES MD on Dec 24 2023 3:40PM EST [id number] Normal [facility]20[facility] (GASTA5[facility] ----- MUNIRA CHESTER ([id number]) 1950 F Date Time Provider Department 12/04/23 [...] (FLONASE) 50 mcg/actuation nasal spray Use 1 [place] in each nostril once daily. - atorvastatin [...] Status:Closed by HOLLIS MCKEON on 12/04/23 Normal [facility] Basophils Auto (Bld) [#/Vol] on 11-22-2023 Basophils (Bld) [#/Vol] Automated basophil count 0.0-0.1 [facility] Basophils/100 WBC Auto (Bld) on 11-22-2023 Basophils/100 WBC (Bld) Automated basophil % 0. 2-2.0 [facility] Eosinophils/100 WBC Auto (Bl d)on 11-22-2023 Eosinophils/100 WBC (Bld) Automated eosinophil % High 0.9-7.0 [facility] Erythrocyte distribution wid th Auto (RBC) [Ratio]on 11-22-2023 Erythrocyte distribution width (RBC) [Ratio] Erythrocyte distribution width [Ratio] by Automated count 11.0-15.0 [facility] Estimated glomerular filtrat ion rate (GFR) non- Americanon 11-22-2023 GFR/1.73 sq M.predicted among non-blacks MDRD (S/P/Bld) [Vol rate/Area] Estimated glomerular filtration rate (GFR) non- >=60 [facility] Globulin Calc (S) [Mass/Vol] on 11-22-2023 Globulin (S) [Mass/Vol] Serum globulin measurement by calculation (mass/volume) [facility] Hematocrit Auto (Bld) [Volum e fraction]on 11-22-2023 Hematocrit (Bld) [Volume fraction] Hematocrit [Volume Fraction] of Blood by Automated count 36.0-48.0 [facility] Hemoglobin [Mass/volume] in Bloodon 11-22-2023 Hemoglobin (Bld) [Mass/Vol] Hemoglobin [Mass/volume] in Blood 12.0-16.0 [facility] Iron binding capacity [Mass/ volume] in Serum or Plasmaon 11-22-2023 Iron binding capacity [Mass/Vol] Iron binding capacity [Mass/volume] in Serum or Plasma 250.0-450. 0 [facility] Iron saturation [Mass Fracti on] in Serum or Plasmaon 11-22-2023 Iron saturation [Mass fraction] Iron saturation [Mass Fraction] in Serum or Plasma [facility] Laboratory - Chemistry and C hemistry - challengeon 11-22-2023 Albumin [Mass/Vol] 3.7 g/dL 3.4-5.0 [facility] ALP [Catalytic activity/Vol] 80 U/L 46-116 [facility] ALT [Catalytic activity/Vol] 26 U/L 14-59 [facility] AST [Catalytic activity/Vol] 21 U/L 15-37 [facility] Bilirubin [Mass/Vol] 0.5 mg/dL 0.2-1.0 [facility] Calcium [Mass/Vol] 9.0 mg/dL 8.5-10.1 [facility] Chloride [Moles/Vol] 104 mmol/L 98-107 [facility] CO2 [Moles/Vol] 29.7 mmol/L 21.0-32.0 [facility] Creatinine [Mass/Vol] 0.85 mg/dL 0.55-1.02 [facility] Ferritin [Mass/Vol] 30.0 ng/mL 8.0-252.0 [facility] GFR/1.73 sq M.predicted MDRD (S/P/Bld) [Vol rate/Area] mL/min/{1.73_m2} >=60 [facility] Glucose [Mass/Vol] 103 mg/dL 74-106 [facility] Iron [Mass/Vol] 71.0 ug/dL 50.0-170.0 [facility] Potassium [Moles/Vol] 3.6 mmol/L 3.5-5.1 [facility] Protein [Mass/Vol] 6.6 g/dL 6.4-8.2 [facility] Sodium [Moles/Vol] 143 mmol/L 136-145 [facility] Urea nitrogen [Mass/Vol] 16.0 mg/dL 7.0-18.0 [facility] Urea nitrogen/Creatinine [Mass ratio] 18.8 mg/mg [facility] Laboratory - Hematology and Cell countson 11-22-2023 Immature granulocytes/100 WBC (Bld) 0.3 % 0.0-0.5 [facility] Leukocytes [#/volume] correc radha for nucleated erythrocytes in Blood by Automated counon 11-22-2023 WBC corrected for nucl RBC Auto (Bld) [#/Vol] Leukocytes [#/volume] corrected for nucleated erythrocytes in Blood by Automated coun 4.0-11.0 [facility] Lymphocytes Auto (Bld) [#/Vo l]on 11-22-2023 Lymphocytes (Bld) [#/Vol] Lymphocytes [#/volume] in Blood by Automated count 1.2-3.8 [facility] Lymphocytes/100 WBC Auto (Bl d)on 11-22-2023 Lymphocytes/100 WBC (Bld) Lymphocytes/100 leukocytes in Blood by Automated count 20.5-60.0 [facility] MCH Auto (RBC) [Entitic mass ]on 11-22-2023 MCH (RBC) [Entitic mass] MCH [Entitic ma ss] by Automated count 26.7-34.0 [facility] MCHC Auto (RBC) [Mass/Vol]on 11-22-2023 MCHC (RBC) [Mass/Vol] MCHC [Mass/volume] by Automated count 29.9-35.2 [facility] MCV Auto (RBC) [Entitic vol] on 11-22-2023 MCV (RBC) [Entitic vol] MCV [Entitic vol ume] by Automated count 81.0-99.0 [facility] Monocytes Auto (Bld) [#/Vol] on 11-22-2023 Monocytes (Bld) [#/Vol] Automated blood monocyte count 0.3-0.8 [facility] Monocytes/100 WBC Auto (Bld) on 11-22-2023 Monocytes/100 WBC (Bld) Automated monocyte % 1. 7-12.0 [facility] Neutrophils Auto (Bld) [#/Vo l]on 11-22-2023 Neutrophils (Bld) [#/Vol] Neutrophils [#/volume] in Blood by Automated count 1.4-6.5 [facility] Neutrophils/100 WBC Auto (Bl d)on 11-22-2023 Neutrophils/100 WBC (Bld) Automated neutrophil % 43.0-75.0 [facility] No Panel Informationon 11-21 Eosinophils # (Auto) 0.6 10 3/uL 0.0-0.7 [facility] Immature Granulocyte # (Auto) 0.02 10 3/uL 0.00-0.03 [facility] Platelet mean volume Auto (B ld) [Entitic vol]on 11-22-2023 Platelet mean volume (Bld) [Entitic vol] Platelet mean volume [Entitic volume] in Blood by Automated count 9.5-13.5 [facility] Platelets Auto (Bld) [#/Vol] on 11-22-2023 Platelets (Bld) [#/Vol] Platelets [#/vol ume] in Blood by Automated count 150-450 [facility] RBC Auto (Bld) [#/Vol]on RBC (Bld) [#/Vol] Erythrocytes [#/volu me] in Blood by Automated count 4.20-5.40 [facility] Serum or plasma albumin/glob ulin mass ratioon 11-22-2023 Albumin/Globulin [Mass ratio] Serum or plasma albumin/globulin mass ratio [facility] Serum or plasma anion gap de terminationon 11-22-2023 Anion gap [Moles/Vol] Serum or plasma an ion gap determination [facility] CNPNon 10-31-2023 CNPN Telephone (GASTA5) ----- MUNIRA CHESTER ([id number]) 1950 F Date Time Provider Department 10/31/23 KASEY FALLON GASTA5 During your visit today, we recorded the following information about you: Rehana Hoang 10/31/2023 9:31 AM Signed Patient called to see if you have received a fax from a Dr. Nettles's office for a pill cam? Chloe Lagunas 10/31/2023 3:36 PM Signed Yes all records have been received and scanned into patients Chart. Chole Allergies As of Date: 10/31/2023 Noted Allergy Reaction CONTRAST DYE 12/08/2007 SULFA (SULFONAMIDE ANTIBIOTICS) 12/08/2007 Date Reviewed: 04/11/2016 Reviewed by: Diana Spence - Fully Assessed Reason for Visit: Patient Question [1066] Prescriptions as of 10/31/2023 - fluticasone-vilanterol (BREO ELLIPTA) 100-25 mcg/dose inhaler Inhale 1 Inhalation as instructed once daily. - Butalbital-Acetaminophen- Caff (FIORICET) 50-300-40 mg cap Take by mouth. - EPINEPHrine (EPIPEN) 0.3 mg/0.3 mL auto-injector Inject 0.3 mg intramuscularly as needed. - fluticasone (FLONASE) 50 mcg/actuation nasal spray Use 1 [place] in each nostril once daily. - atorvastatin [...] Encounter Status:Closed by REHA[facility] (GASTA5[facility] ----- MUNIRA CHESTER ([id number]) 1950 F Date Time Provider Department 10/16/23 [facility] PROVIDER GASTA5 During your visit today, we recorded the following information about you: Hollis Mckeon RN 10/16/2023 1:52 PM Signed Faxed referral received on 10/15/23 for pt sent from Dr. Ace from [facility] to attention Dr. Fallon, for pt for [...] MCKEON on: 11/22/2023 10:13 AM Modules accepted: Hollis Cronin RN 11/25/2023 11:[address] Fallon reviewed and said pt should not have the CT and just get small bowel series. MARIA D Hilliard Ann, RN 11/25/2023 11:29 AM Signed Got pt scheduled for test same day as office visit, will mail out prep instructions. Called pt, left VM asking for return call. MARIA D Hilliard, MARIA D Velazquez 11/26/2023 9:47 AM Signed Called pt and [...] (FLONASE) 50 mcg/actuation nasal spray Use 1 [place] in each nostril once daily. - atorvastatin [...] by HOLLIS MCKEON on 10/16/23 Normal [facility] Physician Referralon 024 Physician Referral [id number] Normal [facility] Telephoneon 09-05-2023 Telephone [id number] Munira Chester 1950 F Date Provider Department [facility] No family history on file Normal [place] Telephoneon 08-28-2023 Telephone [id number] Munira Chester 1950 F Date Provider Department [facility] LIZZIE No family history on file Normal [place] Physician Referralon 024 Physician Referral [id number] Normal [facility] Ambulatory Visit Summaryon 0 08-15-2023 Ambulatory Visit Summary MUNIRA CHESTER :1950 Visit Date:08/15/2023 Ambulatory Visit Instructions Your Diagnosis Anemia Bile reflux gastritis Diverticulosis Iron deficiency anemia due to chronic blood loss Internal hemorrhoids Small bowel stricture Your Care Team Attending Physician - Del Nettles MD Primary Care Physician - ANDREA GOLDEN DO [...] Tab) fluticasone nasal (fluticasone 0.05 mg/inh Nasal [place]) fluticasone/umeclidinium/ vilanterol (Trelegy Ellipta) iron polysaccharide (Ferrex-150) [...] VILLEGAS, Asuncion [place] Where: [facility] Gastroenterology Office/Clin ic Noteon 08-15-2023 Gastroenterology Office/Clinic [...] y (01/16/2015), (more content not included)... Normal [facility] Comment on above: Result Comment: Elec tronically [...] Hurst DO Transcribed by: SAHIL Technologist: KE [facility] Consent for Treatmenton Consent for Treatment [id number]#[id number] [facility] Consent for Procedure/Surger yon 07-22-2023 Consent for Procedure/Surgery [id number]#[id number] [facility] Nurse Consultation Noteon Nurse Consultation Note [...] Every other day fluticasone 0.05 mg/inh Nasal [place], 2 spray(s), Nasal, Daily Fosamax 70 mg [...] virus vaccine, inactivated 12/31/2022 Recorded SARS-CoV-2 (COVID-19) [id number] 12/22/2021 Recorded influenza virus vaccine, inactivated 12/18/2021 [...] influenza virus vaccine, inactivated 01/04/2016 Recorded Normal [facility] XR Abdomen 1 Viewon 07-10-19 XR Abdomen [...] mGy = na DAP = na Normal [facility] Consent for Treatmenton 06-16 Consent for Treatment [id number]#[id number] Normal [facility] Nurse Consultation Noteon Nurse Consultation Note Assessment/Plan [...] Every other day fluticasone 0.05 mg/inh Nasal [place], 2 spray(s), Nasal, Daily Fosamax 70 mg [...] virus vaccine, inactivated 12/31/2022 Recorded SARS-CoV-2 (COVID-19) [id number] 12/22/2021 Recorded influenza virus vaccine, inactivated 12/18/2021 [...] influenza virus vaccine, inactivated 01/04/2016 Recorded Normal [facility] Physician Orderon 07-03-2023 Physician Order [id number]#[id number] [facility] Albumin [Mass/volume] in Ser um or Plasmaon 07-02-2023 Albumin [Mass/Vol] 3.6 g/dL 2.9-4.4 [facility] IgA [Mass/volume] in Serum o r Plasmaon 07-02-2023 IgA [Mass/Vol] 83 mg/dL 87-352 [facility] IgE [Units/volume] in Serum or Plasmaon 07-02-2023 IgE Qn 119 [IU]/mL 6-495 [facility] Comment on above: Performed at: [facility] [employer] [address] [id number] Director: Chay Stewart MD, Phone: [phone] IgG [Mass/volume] in Serum o r Plasmaon 07-02-2023 IgG [Mass/Vol] 509 mg/dL [phone] [facility] IgM [Mass/volume] in Serum o r Plasmaon 07-02-2023 IgM [Mass/Vol] 51 mg/dL 26-217 [facility] Immunoglobulin light chains. kappa.free [Mass/volume] in Serumon 07-02-2023 Immunoglobulin light chains.kappa.free (S) [Mass/Vol] 12.1 mg/L 3.3-19.4 [facility] Immunoglobulin light chains. kappa.free/Immunoglobulin light chains.lambda.free [Yony 07-02-2023 Immunoglobulin light chains.kappa.free/Immuno globulin light chains.lambda.free (S) [Mass ratio] 1.13 0.26-1.65 [facility] Comment on above: Performed at: [facility] [employer] [address] [id number] Director: Bj Hair PhD, Phone: [phone] Immunoglobulin light chains. lambda.free [Mass/volume] in Serum or Plasmaon 07-02-2023 Immunoglobulin light chains.lambda.free [Mass/Vol] 10.7 mg/L 5.7-26.3 [facility] No Panel Informationon 07-01 Protein Electrophoresis M-Car Not Observed g/dL Not Observed [facility] Protein Electrophoresis Note Comment . [facility] Comment on above: Protein electrophore sis scan will follow via computer,mail, or manager requirements delivery. Protein [Mass/volume] in Ser um or Plasmaon 07-02-2023 Protein [Mass/Vol] 6.1 g/dL 6.0-8.5 [facility] Serum globulin measurement ( mass/volume)on 07-02-2023 Globulin (S) [Mass/Vol] 2.5 g/dL 2.2-3.9 [facility] Serum or plasma albumin/glob ulin mass ratioon 07-02-2023 Albumin/Globulin [Mass ratio] 1.5 {ratio} 0.7-1.7 [facility] Serum or plasma alpha 1 glob ulin measurement by electrophoresis (mass/volume)on 07-02-2023 Alpha 1 globulin Elph [Mass/Vol] 0.2 g/dL 0.0-0.4 [facility] Serum or plasma alpha 2 glob ulin measurement by electrophoresis (mass/volume)on 07-02-2023 Alpha 2 globulin Elph [Mass/Vol] 0.9 g/dL 0.4-1.0 [facility] Serum or plasma beta globuli n measurement by electrophoresis (mass/volume)on 07-02-2023 Beta globulin Elph [Mass/Vol] 0.9 g/dL 0.7-1.3 [facility] Serum or plasma gamma globul in measurement by electrophoresis (mass/volume)on 07-02-2023 Gamma globulin Elph [Mass/Vol] 0.5 g/dL 0.4-1.8 [facility] Serum or plasma immunoelectr ophoresis interpretationon 07-02-2023 Interpretation IEP [Interp] Comment . [facility] Comment on above: No monoclonality det ected. Basophils Auto (Bld) [#/Vol] on 06-27-2023 Basophils (Bld) [#/Vol] 0.0 10 3/uL 0.0-0.1 [facility] Basophils/100 WBC Auto (Bld) on 06-27-2023 Basophils/100 WBC (Bld) 0.2 % 0.2-2.0 [facility] Eosinophils/100 WBC Auto (Bl d)on 06-27-2023 Eosinophils/100 WBC (Bld) 0.2 % 0.9-7.0 [facility] Erythrocyte distribution wid th Auto (RBC) [Ratio]on 06-27-2023 Erythrocyte distribution width (RBC) [Ratio] 19.9 % 11.0-15.0 [facility] Hematocrit Auto (Bld) [Volum e fraction]on 06-27-2023 Hematocrit (Bld) [Volume fraction] 36.9 % 36.0-48.0 [facility] Hemoglobin [Mass/volume] in Bloodon 06-27-2023 Hemoglobin (Bld) [Mass/Vol] 12.0 g/dL 12.0-16.0 [facility] Iron binding capacity [Mass/ volume] in Serum or Plasmaon 06-27-2023 Iron binding capacity [Mass/Vol] 279.0 ug/dL 250.0-450. 0 [facility] Iron saturation [Mass Fracti on] in Serum or Plasmaon 06-27-2023 Iron saturation [Mass fraction] 20.8 % [facility] Laboratory - Chemistry and C hemistry - challengeon 06-27-2023 Ferritin [Mass/Vol] 110.0 ng/mL 8.0-252.0 [facility] Iron [Mass/Vol] 58.0 ug/dL 50.0-170.0 [facility] Laboratory - Hematology and Cell countson 06-27-2023 Immature granulocytes/100 WBC (Bld) 1.4 % 0.0-0.5 [facility] Leukocytes [#/volume] correc radha for nucleated erythrocytes in Blood by Automated counon 06-27-2023 WBC corrected for nucl RBC Auto (Bld) [#/Vol] 11.8 10 3/uL 4.0-11.0 [facility] Lymphocytes Auto (Bld) [#/Vo l]on 06-27-2023 Lymphocytes (Bld) [#/Vol] 2.2 10 3/uL 1.2-3.8 [facility] Lymphocytes/100 WBC Auto (Bl d)on 06-27-2023 Lymphocytes/100 WBC (Bld) 18.3 % 20.5-60.0 [facility] MCH Auto (RBC) [Entitic mass ]on 06-27-2023 MCH (RBC) [Entitic mass] 28.6 pg 26.7-34.0 [facility] MCHC Auto (RBC) [Mass/Vol]on 06-27-2023 MCHC (RBC) [Mass/Vol] 32.5 g/dL 29.9-35.2 [facility] MCV Auto (RBC) [Entitic vol] on 06-27-2023 MCV (RBC) [Entitic vol] 87.9 fL 81.0-99.0 [facility] Monocytes Auto (Bld) [#/Vol] on 06-27-2023 Monocytes (Bld) [#/Vol] 1.4 10 3/uL 0.3-0.8 [facility] Monocytes/100 WBC Auto (Bld) on 06-27-2023 Monocytes/100 WBC (Bld) 11.8 % 1.7-12.0 [facility] Neutrophils Auto (Bld) [#/Vo l]on 06-27-2023 Neutrophils (Bld) [#/Vol] 8.0 10 3/uL 1.4-6.5 [facility] Neutrophils/100 WBC Auto (Bl d)on 06-27-2023 Neutrophils/100 WBC (Bld) 68.1 % 43.0-75.0 [facility] No Panel Informationon 06-26 Eosinophils # (Auto) 0.0 10 3/uL 0.0-0.7 [facility] Immature Granulocyte # (Auto) 0.17 10 3/uL 0.00-0.03 [facility] Platelet mean volume Auto (B ld) [Entitic vol]on 06-27-2023 Platelet mean volume (Bld) [Entitic vol] 9.7 fL 9.5-13.5 [facility] Platelets Auto (Bld) [#/Vol] on 06-27-2023 Platelets (Bld) [#/Vol] 378 10 3/uL 150-450 [facility] RBC Auto (Bld) [#/Vol]on RBC (Bld) [...] Every other day fluticasone 0.05 mg/inh Nasal [place], 2 spray(s), Nasal, Daily Fosamax 70 mg Tab, 70 mg= 1 tab(s), Oral, qWeek levothyroxine 88 mcg (0.088 mg) Tab, 88 mcg= 1 tab(s), Oral, Daily Macrobid 100 mg Cap, 100 mg= 1 cap(s), Oral, As Directed, 3 refills, Not (more content not included)... Normal [facility] Comment on above: Result Comment: Elec tronically [...] (05/22/2023), Co (more content not included)... Normal [facility] Comment on above: Result Comment: Elec tronically Signed By: Del Nettles MD\.br\Date and Time Signed: 05/30/23 08:34 EDT IntraOperative Documentson 0 05-29-2023 IntraOperative Documents [id number] Normal [facility] Main OR Intraoperative Recor don 05-24-2023 Main OR Intraoperative Record IntraOp Document Type FT Summary Primary Physician: Del Nettles MD Finalized Date/Time: 05/24/23 14:03:51 Pt. Name: MUNIRA CHESTER/Sex: 1950 Female Med Rec #: [id number] Physician: Del Nettles MD Financial #: [id number] Pt. Type: O Room/Bed: / Admit/Disch: 05/22/23 06:55:50 - 05/22/23 23:59:59 Institution: Case Times FT Entry 1 Patient Times In Room 05/22/23 08:12:00 Out Room 05/22/23 08:48:00 Procedure Times Start 05/22/23 08:17:00 Stop 05/22/23 08:45:00 Anesthesia Times Start 05/22/23 08:12:00 Stop 05/22/23 08:48:00 Time at [facility] 05/22/23 08:32:00 Last Modified By: Carrie KILLIAN, Neli Barrera 05/22/23 08:48:46 General Comments: 0823 EGD completed. /,RN 0974 Colonoscopy started. 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 Yes Last Modified By: Neli Butler RN 05/22/23 08:18:09 Post-Care Text: The patient is free from signs and symptoms of injury caused by extraneous objects Patien (more content not included)... Normal [facility] Progress Note-Physicianon Progress Note-Physician Patient: MUNIRA DURAN [...] Problems Urinary tract infection / SNOMED CT 637236507 / Confirmed Urethral caruncle / SNOMED CT 77720482 / Confirmed Duodenal stricture / SNOMED CT 35981652 / Confirmed Recurrent UTI / SNOMED CT 023653015 / Confirmed Osteopenia of lumbar spine / SNOMED CT 212228514 / Confirmed Nocturia / SNOMED CT 968953126 / Confirmed Mild persistent asthma / SNOMED CT 2167786939 / Confirmed Migraine / SNOMED CT 76780833 / Confirmed Microscopic hematuria / SNOMED CT 109008479 / Confirmed Lumbar spondylosis / SNOMED CT 703252193 / Confirmed Mixed incontinence / SNOMED CT 75704807 / Confirmed Hypertension / SNOMED CT 0551296635 / Confirmed Hyperlipidemia / SNOMED CT 42440952 / Confirmed Personal history of colonic polyps / SNOMED CT 5818905901 / Confirmed History of gastric ulcer / SNOMED CT 916546942 / Confirmed H/O gastric ulcer / SNOMED CT 192837376 / Confirmed Graves disease / SNOMED CT 475902551 / Confirmed GERD (gastroesophageal reflux disease) / SNOMED CT 535755771 / Confirmed Incomplete bladder emptying / SNOMED CT 794525825 / Confirmed Epigastric pain / SNOMED CT 628567634 / Confirmed Chronic tension headache / SNOMED CT 304752047 / Confirmed Cervical spondylosis / SNOMED CT 3632429816 / Confirmed Bilateral cataracts / SNOMED CT 914495575 / Confirmed Benign essential hypertension / SNOMED CT 8915527 / Confirmed Hypothyroidism, acquired, autoimmune / SNOMED CT 481643865 / Confirmed Asymptomatic microscopic hematuria / SNOMED CT 3244594397 / Confirmed Asthma / SNOMED CT 656401777 / Confirmed Arthritis / SNOMED CT 2637868 / Confirmed Acute allergic rhinitis due to pollen / SNOMED CT 38397999 / Confirmed Abdominal bloating / SNOMED CT 074449345 / Confirmed Resolved: Reflux of urine / SNOMED CT 7198882651 Histories Procedure history: Colonoscopy ([id number]) on 09/07/2019 at 69 Years. EGD - Esophagogastroduodenoscop y ([id number]) on 09/07/2019 at 69 Years. EGD - Esophagogastroduodenoscop y ([id number]) on 01/16/2015 at 64 Years. Colonoscopy ([id number]) on 01/16/2015 at 64 Years. Comments: 08/31/2019 16:19 EDT - Tonie Barragan LPN normal EGD - Esophagogastroduodenoscop y (9484467691) on 08/17/2011 at 61 Years. EGD - Esophagogastroduodenoscop y (3360073062) on 05/17/2011 at 60 Years. Laparoscopic cholecystectomy ([id number]) on 06/16/2010 at 59 Years. Colonoscopy ([id number]) on 01/16/2010 at 59 Years. section ([id number]). Rotator cuff repair (336085521). Tubal ligation (815855974). Cataracts (2465710723). Foot (12899750). Social History Social & Psychosocial Habits Alcohol 05/14/2023 Risk Assessment: Denies Alcohol Use Substance Abuse 05/14/2023 Risk Assessment: Denies Substance Abuse Tobacco 05/14/2023 Tobacco Use: Never (less than 100 in l Smokeless tobacco use: Never Concerns about tobacco use in household: No . Physical Examination Airway: Mallampati classification: II (soft palate, fauces, uvula visible). Respiratory: adequate air exchange. Cardiovascular: Regular rhythm. Plan [place] [employer] (ASA) physical status classification: Class II. Anesthetic Preoperative Plan: Anesthesia General. Normal [facility] Comment on above: Result Comment: Elec tronically Signed By: Jay Jay Valderrama Jr, DO\.br\Date and Time Signed: 05/24/23 13:56 EST Progress Note-Physician Patient: MUNIRA DURAN Age: 72 years Sex: Female : 1950 Associated Diagnoses: None Author: Jay Jay Valderrama Jr, DO Postoperative Information Postoperative disposition: Postoperative disposition: To PACU. Optimetrix number: Optimetrix number [id number]. Anesthetic utilized: General. Health Status Allergies: Allergic [...] meets criteria ( To home ). Normal [facility] Comment on above: Result Comment: Elec tronically Signed By: Jay Jay Valderrama Jr, DO\Date and Time Signed: 05/24/23 13:53 EST RAD - CT Reporton 05-24-2023 RAD - CT Report [id number]#1.00TIFF Normal [facility] RAD - CT Report [id number]#1.00TIFF [facility] Consenton 05-23-2023 Consent [id number]#1.00TIFF [facility] Discharge Instructionson Discharge Instructions [id number]#1.00TIFF [facility] Postoperative Documentson Postoperative Documents [id number]#1.00TIFF [facility] Colonoscopy Procedure Report on 05-22-2023 Colonoscopy Procedure Report Patient: MUNIRA CHESTER Age: 72 years Sex: Female : 1950 Associated Diagnoses: None Author: Tho VILLEGAS, Del Duckworth Pre-Procedure Procedure Date 05/22/2023 08:47:00 . Procedure Type: Colonoscopy. Procedure provider me. Current history and physical Colonoscopy ([id number]) on 09/07/2019 at 69 Years. EGD - Esophagogastroduodenoscop y (5820242722) on 09/07/2019 at 69 Years. EGD - Esophagogastroduodenoscop y (9175497054) on 01/16/2015 at 64 Years. Colonoscopy ([id number]) on 01/16/2015 at 64 Years. Comments: 08/31/2019 16:19 EDTonie Cohn LPN normal EGD - Esophagogastroduodenoscop y (3329771306) on 08/17/2011 at 61 Years. EGD - Esophagogastroduodenoscop y ([id number]) on 05/17/2011 at 60 Years. Laparoscopic cholecystectomy ([id number]) on 06/16/2010 at 59 Years. Colonoscopy ([id number]) on 01/16/2010 at 59 Years. section (). Rotator cuff repair (). Tubal ligation (245304004). Cataracts (2101975456). Foot (25385607).. Past Medical History Resolved Reflux of urine (6872897665): Resolved.. Family History Rheumatoid arthritis Mother Primary malignant neoplasm of lung Mother Diabetes mellitus type 2 Father Primary malignant neoplasm of female breast Sister . Procedure History Colonoscopy ([id number]) on 09/07/2019 at 69 Years. EGD - Esophagogastroduodenoscop y (5912420499) on 09/07/2019 at 69 Years. EGD - Esophagogastroduodenoscop y (5778421747) on 01/16/2015 at 64 Years. Colonoscopy ([id number]) on 01/16/2015 at 64 Years. Comments: 08/31/2019 16:19 Tonie Ro LPN normal EGD - Esophagogastroduodenoscop y (3598753033) on 08/17/2011 at 61 Years. EGD - Esophagogastroduodenoscop y (1349982441) on 05/17/2011 at 60 Years. Laparoscopic cholecystectomy ([id number]) on 06/16/2010 at 59 Years. Colonoscopy ([id number]) on 01/16/2010 at 59 Years. section (). Rotator cuff repair (). Tubal ligation (574489782). Cataracts (1382316793). Foot (18868324).. Colorectal neoplasm risk assessment Average risk. Informed [...] infection., # 30 cap(s), Refills(s) 3, Pharmacy: [facility], 158, cm, 02/20/23 8:48:00 EST, Height/Length Dosing, 68.5, kg,... Pantoprazole [address] Tab: 40 mg = 1 tab(s), Oral, Daily, # 90 tab(s), Refills(s) 1, Pharmacy: [facility], 154.9, cm, 12/11/19 9:26:00 EDT, Height/Length Dosing, 70.2, kg, 12/11/19 9:26:00 EDT, Weight Dosing estradiol 0.1 mg/g Vag Crm: See Instructions, 42.5 gm, Refill(s) 0, apply pea sized amount to urethra 2x/wk, [facility], 158, cm, 02/20/23 8:48:00 [...] of stomach acid fluticasone 0.05 mg/inh Nasal [place]: 2 spray(s), Nasal, Daily, Refill(s) 0 levothyroxine [...] Findings Diverticul (more content not included)... Normal [facility] Comment on above: Other Comment: Alma enrique Attachment - attachment storage system not supported [id number] Can be viewed in source systemMissing Attachment - attachment storage system not supported [id number] Can be viewed in source systemMissing Attachment - attachment storage system not supported 8909385 Can be viewed in source systemMissing Attachment - attachment storage system not supported [id number] Can be viewed in source systemMissing Attachment - attachment storage system not supported 9297188 Can be viewed in source systemMissing Attachment - attachment storage system not supported 1075092 Can be viewed in source systemMissing Attachment - attachment storage system not supported 5287755 Can be viewed in source systemMissing Attachment - attachment storage system not supported 4855325 Can be viewed in source system Consent for Treatmenton 0 Consent for Treatment [id number]#1.00TIFF Normal [facility] Consultation Noteon 05-22-19 Consultation Note Patient: MUNIRA [...] infection., # 30 cap(s), Refills(s) 3, Pharmacy: [facility], 158, cm, 02/20/23 8:48:00 EST, Height/Length Dosing, 68.5, kg,... Pantoprazole [address] Tab: 40 mg = 1 tab(s), Oral, Daily, # 90 tab(s), Refills(s) 1, Pharmacy: [facility] [address] [facility], 154.9, cm, 12/11/19 9:26:00 EDT, Height/Length Dosing, 70.2, kg, 12/11/19 9:26:00 EDT, Weight Dosing estradiol 0.1 mg/g Vag Crm: See Instructions, 42.5 gm, Refill(s) 0, apply pea sized amount to urethra 2x/wk, [facility], 158, cm, 02/20/23 8:48:00 [...] of stomach acid fluticasone 0.05 mg/inh Nasal [place]: 2 spray(s), Nasal, Daily, Refill(s) 0 levothyroxine [...] Images Procedure images: Rec1_hd_video_2023__T _29_414.jpg Rec1_hd_video_2023__T _44_784.jpg Rec1_hd_video_2023__T _53_345.jpg Rec1_hd_video_2023__T __03_390.jpg Rec1_hd_video_2023__T __23_607.jpg Rec1_hd_video_2023__T __30_290.jpg Rec1_hd_video_2023__T 08__16_512.jpg Rec1_hd_video_2023__T __56_296.jpg Rec1_hd_video_2023__T __57_453.jpg Rec1_hd_video_2023__T __31_556.jpg Rec1_hd_video_2023__T _57_490.jpg . Post-Procedure Complications: none. Estimated blood loss: none. Specimens: sent to pathology. Devices/ implants: none left in place. Impression and Plan EGD: Diagnosis: Bile reflux gastritis (QIW78-JV K29.60, Working, Medical). Course: Progressing as expected. Education and Follow-up: Counseled: Family. Notes: Continue current medication Follow-up pathology report. might benefit from CT enterography versus capsule endoscopy in the future [facility] Comment on above: Result Comment: Elec tronically Signed By: Tho VILLEGAS, Del Siddiquibr\Date and Time Signed: 05/22/23 09:05 EST Other Comment: Alma enrique Attachment - attachment storage system not supported [id number] Can be viewed in source systemMissing Attachment - attachment storage system not supported [id number] Can be viewed in source systemMissing Attachment - attachment storage system not supported [id number] Can be viewed in source systemMissing Attachment - attachment storage system not supported 5926781 Can be viewed in source systemMissing Attachment - attachment storage system not supported 4441236 Can be viewed in source systemMissing Attachment - attachment storage system not supported 0704307 Can be viewed in source systemMissing Attachment - attachment storage system not supported 1587032 Can be viewed in source systemMissing Attachment - attachment storage system not supported 8854159 Can be viewed in source systemMissing Attachment - attachment storage system not supported 5223134 Can be viewed in source systemMissing Attachment - attachment storage system not supported 2107976 Can be viewed in source systemMissing Attachment - attachment storage system not supported 1991738 Can be viewed in source system Consultation Note Patient: MUNIRA CHESTER Age: 72 years Sex: Female : 1950 Associated Diagnoses: None Author: Del Nettles MD Pre-Procedure Procedure Date 05/22/2023 08:47:00 . Procedure Type: Colonoscopy. Procedure provider me. Current history and physical Colonoscopy ([id number]) on 09/07/2019 at 69 Years. EGD - Esophagogastroduodenoscop y ([id number]) on 09/07/2019 at 69 Years. EGD - Esophagogastroduodenoscop y ([id number]) on 01/16/2015 at 64 Years. Colonoscopy ([id number]) on 01/16/2015 at 64 Years. Comments: 08/31/2019 16:19 EDT - Yung ALDRIDGE, Tonie Esqueda normal EGD - Esophagogastroduodenoscop y (3996490387) on 08/17/2011 at 61 Years. EGD - Esophagogastroduodenoscop y (1636947082) on 05/17/2011 at 60 Years. Laparoscopic cholecystectomy ([id number]) on 06/16/2010 at 59 Years. Colonoscopy ([id number]) on 01/16/2010 at 59 Years. section (). Rotator cuff repair (848435004). Tubal ligation (346019604). Cataracts (0012012774). Foot (24923596).. Past Medical History Resolved Reflux of urine (3222705529): Resolved.. Family History Rheumatoid arthritis Mother Primary malignant neoplasm of lung Mother Diabetes mellitus type 2 Father Primary malignant neoplasm of female breast Sister . Procedure History Colonoscopy ([id number]) on 09/07/2019 at 69 Years. EGD - Esophagogastroduodenoscop y (7581025968) on 09/07/2019 at 69 Years. EGD - Esophagogastroduodenoscop y (7566795395) on 01/16/2015 at 64 Years. Colonoscopy ([id number]) on 01/16/2015 at 64 Years. Comments: 08/31/2019 16:19 EDT - Tonie Barragan LPN normal EGD - Esophagogastroduodenoscop y (1662894131) on 08/17/2011 at 61 Years. EGD - Esophagogastroduodenoscop y ([id number]) on 05/17/2011 at 60 Years. Laparoscopic cholecystectomy ([id number]) on 06/16/2010 at 59 Years. Colonoscopy ([id number]) on 01/16/2010 at 59 Years. section (). Rotator cuff repair (). Tubal ligation (775514471). Cataracts (3521073273). Foot (79135976).. Colorectal neoplasm risk assessment Average risk. Informed [...] infection., # 30 cap(s), Refills(s) 3, Pharmacy: [facility], 158, cm, 02/20/23 8:48:00 EST, Height/Length Dosing, 68.5, kg,... Pantoprazole [address] Tab: 40 mg = 1 tab(s), Oral, Daily, # 90 tab(s), Refills(s) 1, Pharmacy: [facility] [address] [facility], 154.9, cm, 12/11/19 9:26:00 EDT, Height/Length Dosing, 70.2, kg, 12/11/19 9:26:00 EDT, Weight Dosing estradiol 0.1 mg/g Vag Crm: See Instructions, 42.5 gm, Refill(s) 0, apply pea sized amount to urethra 2x/wk, [facility], 158, cm, 02/20/23 8:48:00 [...] of stomach acid fluticasone 0.05 mg/inh Nasal [place]: 2 spray(s), Nasal, Daily, Refill(s) 0 levothyroxine [...] well. Findings (more content not included)... Normal [facility] Comment on above: Result Comment: Elec tronically Signed By: Del Nettles MD\.br\Date and Time Signed: 05/22/23 08:51 EST error Other Comment: Alma enrique Attachment - attachment storage system not supported [id number] Can be viewed in source systemMissing Attachment - attachment storage system not supported 8802270 Can be viewed in source systemMissing Attachment - attachment storage system not supported [id number] Can be viewed in source systemMissing Attachment - attachment storage system not supported 0605998 Can be viewed in source systemMissing Attachment - attachment storage system not supported 1520190 Can be viewed in source systemMissing Attachment - attachment storage system not supported 9030546 Can be viewed in source systemMissing Attachment - attachment storage system not supported 8743406 Can be viewed in source systemMissing Attachment - attachment storage system not supported 0563230 Can be viewed in source system Discharge Instructionson Discharge Instructions CHESTERMUNIRA :1950 Visit Date:05/22/2023 Inpatient Discharge Instructions Your [...] Tab) fluticasone nasal (fluticasone 0.05 mg/inh Nasal [place]) fluticasone/umeclidinium/ vilanterol (Trelegy Ellipta) iron polysaccharide (Ferrex-150) [...] VILLEGAS, Asuncion [place] Where: [facility] Comment on above: Result Comment: Elec tronically Signed By: Byron KILLIAN, Leighann\.melissa\Date and Time Signed: 05/22/23 09:29 EST Discharge [...] Tab) fluticasone nasal (fluticasone 0.05 mg/inh Nasal [place]) fluticasone/umeclidinium/ vilanterol (Trelegy Ellipta) iron polysaccharide (Ferrex-150) [...] VILLEGAS, Asuncion [place] Where: [facility] Comment on above: Result Comment: [...] infection., # 30 cap(s), Refills(s) 3, Pharmacy: [facility], 158, cm, 02/20/23 8:48:00 EST, Height/Length Dosing, 68.5, kg,... Pantoprazole [address] Tab: 40 mg = 1 tab(s), Oral, Daily, # 90 tab(s), Refills(s) 1, Pharmacy: [facility], 154.9, cm, 12/11/19 9:26:00 EDT, Height/Length Dosing, 70.2, kg, 12/11/19 9:26:00 EDT, Weight Dosing estradiol 0.1 mg/g Vag Crm: See Instructions, 42.5 gm, Refill(s) 0, apply pea sized amount to urethra 2x/wk, [facility], 158, cm, 02/20/23 8:48:00 [...] of stomach acid fluticasone 0.05 mg/inh Nasal [place]: 2 spray(s), Nasal, Daily, Refill(s) 0 levothyroxine [...] Procedure images: Rec1_hd_video_2023___29_414.jpg Rec1_hd_video___44_784.jpg Rec1_hd_video___53_345.jpg Rec1_hd_video__03_390.jpg Rec1_hd_video___23_607.jpg Rec1_hd_video__30_290.jpg Rec1_hd_video___16_512.jpg Rec1_hd_video___56_296.jpg Rec1_hd_video___57_453.jpg Rec1_hd_video___31_556.jpg Rec1_hd_video_2023__ 08_29_57_490.jpg . Post-Procedure Complications: none. Estimated blood loss: none. Specimens: sent to pathology. Devices/ implants: none left in place. Impression and Plan EGD: Diagnosis: Bile reflux gastritis ([id number]-KC K29.60, Working, Medical). Course: Progressing as expected. Education and Follow-up: Counseled: Family. Notes: Continue current medication Follow-up pathology report. [facility] Comment on above: Other Comment: Alma enrique Attachment - attachment storage system not supported [id number] Can be viewed in source systemMissing Attachment - attachment storage system not supported 9125205 Can be viewed in source systemMissing Attachment - attachment storage system not supported 9673977 Can be viewed in source systemMissing Attachment - attachment storage system not supported 7734017 Can be viewed in source systemMissing Attachment - attachment storage system not supported 0080503 Can be viewed in source [facility] Attachment - attachment storage system not supported 1299778 Can be viewed in source systemMissing Attachment - attachment storage system not supported 8685476 Can be viewed in source systemMissing Attachment - attachment storage system not supported [id number] Can be viewed in source systemM[facility] Attachment - attachment storage system not supported 9234405 Can be viewed in source systemM[facility]stru[facility] Attachment - attachment storage system not supported 9955315 Can be viewed in source systemMissing Attachment - attachment storage system not supported 1208687 Can be viewed in source system Main OR PACU I Recordon 030 Main OR PACU I Record PACU Phase I Docum ent Type FT Summary Primary Physician: Del Nettles MD Finalized Date/Time: 05/22/23 09:41:42 Pt. Name: MUNIRA CHESTER/Sex: 1950 Female Med Rec #: [id number] Physician: Del Nettles MD Financial #: [id number] Pt. Type: O Room/Bed: / Admit/Disch: 05/22/23 [...] Signed By: Nat Rodriguez I 05/22/23 09:41 [facility] Main OR Preoperative Recordo n 05-22-2023 Main OR Preoperative Record Holding Area Document Type FT Summary Primary Physician: Del Nettles MD Finalized Date/Time: 05/22/23 07:08:55 Pt. Name: MUNIRA CHESTER Aviva/Sex: 1950 Female Med Rec #: [id number] Physician: Del Nettles MD Financial #: [id number] Pt. Type: O Room/Bed: / Admit/Disch: 05/22/23 [...] By: Neli Butler RN 05/22/23 07:08 Normal [facility] Monitor Recordon 05-22-2023 Monitor Record [id number]#1.00TIFF Alexandrea [facility] Monitor Record [id number]#1.00TIFF Alexandrea [facility] Patient Education - Texton 0 05-22-2023 Patient [...] unsweetened, w/added ascorbic acid 1 cup 0.5 [place] 1 cup 0.7 Vegetables Cooked Green beans 1 cup 4.0 Carrots 1/2 cup sliced 2.3 Peas 1 cup 8.8 Potato (baked, with skin) 1 medium potato 3.8 Raw [place] (with peel) 1 cucumber 1.5 Lettuce 1 [...] 8.7 Peanuts 1/2 cup 7.9 [facility]MMEDIATE MEDIC (more content not included)... Normal [facility] Consent for Procedure/Surger yon 05-16-2023 Consent for Procedure/Surgery [id number]#1.00TIFF [facility] Ambulatory Visit Summaryon 0 05-14-2023 Ambulatory [...] Tab) fluticasone nasal (fluticasone 0.05 mg/inh Nasal [place]) fluticasone/umeclidinium/ vilanterol (Trelegy Ellipta 200 mcg-62.5 mcg-25 [...] VILLEGAS, Asuncion [place] Where: [facility] Gastroenterology Office/Clin ic Noteon 05-14-2023 Gastroenterology Office/Clinic [...] Tab, Oral, BID fluticasone 0.05 mg/inh Nasal [place], 2 spray(s), Nasal, Daily Fosamax 70 mg [...] virus vaccine, inactivated 12/31/2022 Recorded SARS-CoV-2 (COVID-19) [id number] 12/22/2021 Recorded influenza virus vaccine, inactivated 12/18/2021 Recorded SARS-CoV-2 (COVID-19) mRNA-1273 vaccine 07/04/2021 Recorded SARS-CoV-2 (COVID-19) mRNA-1273 vaccine 01/23/2021 Recorded influenza virus vaccine, inactivated 11/23/2020 Recorded SARS-CoV-2 (COVID-19) mRNA-1273 vaccine 06/02/2020 Recorded SARS-CoV-2 (COVID-19) mRNA-1273 vaccine 05/05/2020 Recorded SARS-CoV-2 (COVID-19) mRNA-1273 vaccine 2020 Recorded 3 shots to date infl (more content not included)... Normal [facility] Comment on above: Result Comment: [...] anemia was found to be low around [place] time a new issue for her no [...] Tab, Oral, BID fluticasone 0.05 mg/inh Nasal [place], 2 spray(s), Nasal, Daily Fosamax 70 mg [...] - Denies (more content not included)... Normal [facility] Comment on above: Result Comment: Elec tronically Signed By: Tho VILLEGAS, Del Duckworth\.br\Date and Time Signed: 05/14/23 13:07 EST Physician Referralon 024 Physician Referral [id number]#1.00TIFF [facility] Ambulatory Visit Summaryon 1 04-23-2022 Ambulatory Visit Summary MUNIRA CHESTER :1950 Visit Date:02/20/2023 Ambulatory Visit Instructions Your Diagnosis Mixed incontinence Recurrent UTI Urethral caruncle Tests Performed Urnls Dip Stick Auto w/o Microscopy POC 46810 Your Care Team Attending Physician - Dewayne [...] Tab) fluticasone nasal (fluticasone 0.05 mg/inh Nasal [place]) fluticasone/umeclidinium/ vilanterol (Trelegy Ellipta 200 mcg-62.5 mcg-25 [...] VILLEGAS, Asuncion [place] Where: [facility] Patient Educationon 02-21-20 23 Patient Education Obstetrics and Gynec ology Pelvic [...] pelvic muscle tension or spasms. ? Take aixf-gnp-ehdrveb and prescription medicines only as told by [...] movement i (more content not included)... Normal [facility] Urology Office/Clinic Noteon 02-20-2023 Urology Office/Clinic Note [...] Information Dewayne VILLEGAS, Asuncion [place], URL, [facility] [address] [place] [address] [phone] Additional Instructions: 1 yr Patient Education Pelvic Floor Dysfunction, Female Kegel Exercises IKimmie, personally scribed for Dr. Buchanan on 02/20/2023 09:52:34. . Documentation recorded by the Kimmie yanez, accurately reflects the services(s) I performed and decisions made by me. Authenticated by Dr. Buchanan on 02/20/2023 18:18:32. Problem List/Past Medical History Ongoing Abdominal bloating Acute allergic rhinitis due to pollen Arthritis Asthma Asymptomatic microscopic hematuria Benign essential hypertension Bilateral cataracts Cervical spondylosis Chronic tension headache Duodenal stricture Epigast (more content not included)... Normal [facility] Comment on above: Result Comment: Elec tronically Signed By: Lue Asuncion VILLEGAS\.br\Date and Time Signed: 02/20/23 18:21 EST\.br\Electronically Co-Signed By: Kimmie Lemus\.br\Date and Time Co-Signed: 02/20/23 09:53 EST POINT OF CARE GLUCOSEon 03-18 Glucose [Mass/Vol] 94 mg/dL Normal 74-106 [facility] Comment on above: Performed By: #### P OCGLUC ####[facility] [address] [place], [place] [address]QvDr. Dwight Mario Glucose [Mass/Vol] 106 mg/dL Normal 74-106 [facility] Comment on above: Performed By: #### P OCGLUC ####[facility] [address] [place], [place] [address]ZmDr. Dwight Mario Covid-19 PCR (CVDTBH)on 03-18 SARS-CoV-2 (COVID-19) RNA GIOVANI+probe Ql (Unsp spec) Not detected Normal NOT DETECTED [facility] Comment on above: Result Comment: This test is not yet approved or cleared by the [place] FDA. When there are no FDA-approved or cleared tests available, and other criteria are met, FDA can make tests available under an emergency access mechanism called an Emergency Use Authorization (EUA). The EUA for this test is supported by the Endoscopic Technician of Health and Human Service's (HHS's) declaration [...] SARS-CoV-2. Performed By: #### C VDTBH #### [facility] [address] [place], [place] [address] Dr. Dwight Mario PROF CHEM 8 (BAS METB)on Anion gap [Moles/Vol] 13.4 mmol/L Normal [facility] Comment on above: Performed By: #### B MP #### [facility] [address] [place] [address] Dr. Dwight Mario Calcium [Mass/Vol] 9.1 mg/dL Normal 8.5-10.1 [facility] Comment on above: Performed By: #### B MP #### [facility] [address] [place] [address] Dr. Dwight Mario Chloride [Moles/Vol] 107 mmol/L Normal 98-107 [facility] Comment on above: Performed By: #### B MP #### [facility] [address] [place] [address] Dr. Dwight Mario CO2 [Moles/Vol] 26.5 mmol/L Normal 21.0-32.0 [facility] Comment on above: Performed By: #### B MP #### [facility] [address] [place] [address] Dr. Dwight Mario Creatinine [Mass/Vol] 0.76 mg/dL Normal 0.55-1.02 [facility] Comment on above: Performed By: #### B MP #### [facility] [address] [place] [address] Dr. Dwight Mario EGFR-AF TRISTANIAN >60 Normal >=60 [facility] Comment on above: Performed By: #### B MP #### [facility] [facility] [address] [place] [address] Dr. Dwight Mario EGFR-NON AF TRISTANIAN >60 Normal >=60 [facility] Comment on above: Performed By: #### B MP #### [facility] [address] [place] [address] Dr. Dwight Mario Glucose [Mass/Vol] 108 mg/dL Critically high 74-106 [facility] Comment on above: Performed By: #### B MP #### [facility] [address] [place] [address] Dr. Dwight Mario Potassium [Moles/Vol] 3.9 mmol/L Normal 3.5-5.1 [facility] Comment on above: Performed By: #### B MP #### [facility] [address] [place] [address] Dr. Dwight Mario Sodium [Moles/Vol] 143 mmol/L Normal 136-145 [facility] Comment on above: Performed By: #### B MP #### [facility] [address] [place] [address] Dr. Dwight Mario Urea nitrogen [Mass/Vol] 25.0 mg/dL Critically high 7.0-18 .0 [facility] Comment on above: Performed By: #### B MP #### [facility] [address] [place] [address] Dr. Dwight Mario Urea nitrogen/Creatinine [Mass ratio] 32.9 mg/mg Normal [facility] Comment on above: Performed By: #### B MP #### [facility] [address] [place] [address] Dr. Dwight Mario CBC AUTO DIFFon 01-29-2022 BASO # 0.0 103/ul Normal 0.0-0.1 [facility] Comment on above: Performed By: #### C BC #### [facility] [address] [place] [address] Dr. Dwight Mario Basophils/100 WBC (Bld) 0.4 % Normal 0.2-2.0 [facility] Comment on above: Performed By: #### C BC #### [facility] [address] [place] [address] Dr. Dwight Mario EO # 0.3 103/ul Normal 0.0-0.7 [facility] Comment on above: Performed By: #### C BC #### [facility] [address] [place] [address] Dr. Dwight Mario Eosinophils/100 WBC (Bld) 2.8 % Normal 0.9-7.0 [facility] Comment on above: Performed By: #### C BC #### [facility] [address] [place] [address] Dr. Dwight Mario Erythrocyte distribution width (RBC) [Ratio] 14.0 % Normal 11.0-15.0 [facility] Comment on above: Performed By: #### C BC #### [facility] [address] [place] [address] Dr. Dwight Mario Hematocrit (Bld) [Volume fraction] 38.3 % Normal 36.0-48.0 [facility] Comment on above: Performed By: #### C BC #### [facility] [address] [place] [address] Dr. Dwight Mario Hemoglobin (Bld) [Mass/Vol] 12.6 g/dL Normal 12.0-16.0 [facility] Comment on above: Performed By: #### C BC #### [facility] [address] [place] [address] Dr. Dwight Mario IG # 0.03 10e3/ul Normal 0.00-0.03 [facility] Comment on above: Performed By: #### C BC #### [facility] [address] [place] [address] Dr. Dwight Mario IG % 0.3 % Normal 0.0-0.5 [facility] Comment on above: Performed By: #### C BC #### [facility] [address] [place] [address] Dr. Dwight Mario LYMPH # 2.9 103/ul Normal 1.2-3.8 [facility] Comment on above: Performed By: #### C BC #### [facility] [address] [place] [address] Dr. Dwight Mario Lymphocytes/100 WBC (Bld) 29.0 % Normal 20.5-60.0 [facility] Comment on above: Performed By: #### C BC #### [facility] [address] [place] [address] Dr. Dwight Mario MANUAL DIFF REQ NO Normal [facility] Comment on above: Performed By: #### C BC #### [facility] [address] [place] [address] Dr. Dwight Mario MCH (RBC) [Entitic mass] 30.3 pg Normal 26.7-34.0 [facility] Comment on above: Performed By: #### C BC #### [facility] [address] [address] [address] Dwight Mario MCHC (RBC) [Mass/Vol] 32.9 g/dL Normal 29.9-35.2 [facility] Comment on above: Performed By: #### C BC #### [facility] [address] [place] [address] Dr. Dwight Mario MCV (RBC) [Entitic vol] 92.1 fL Normal 81.0-99.0 [facility] Comment on above: Performed By: #### C BC #### [facility] [address] [place] [address] Dr. Dwight Mario MONO # 0.8 103/ul Normal 0.3-0.8 [facility] Comment on above: Performed By: #### C BC #### [facility] [address] [place] [address] Dr. Dwight Mario Monocytes/100 WBC (Bld) 7.9 % Normal 1.7-12.0 [facility] Comment on above: Performed By: #### C BC #### [facility] [address] [place] [address] Dr. Dwight Mario NEUT # 5.9 103/ul Normal 1.4-6.5 [facility] Comment on above: Performed By: #### C BC #### [facility] [address] [place] [address] Dr. Dwight Mario Neutrophils/100 WBC (Bld) 59.6 % Normal 43.0-75.0 [facility] Comment on above: Performed By: #### C BC #### [facility] [address] [place] [address] Dr. Dwight Mario Platelet mean volume (Bld) [Entitic vol] 9.4 fL Critically low 9.5-13.5 [facility] Comment on above: Performed By: #### C BC #### [facility] [address] [place] [address] Dr. Dwight Mario PLT 385 103/ul Normal 150-450 [facility] Comment on above: Performed By: #### C BC #### [facility] [address] [place], [place] [id number] Dr. Dwight Mario RBC 4.16 106/ul Critically low 4.20-5.40 [facility] Comment on above: Performed By: #### C BC #### [facility] [address] [address] [address] Dwight Mario WBC 10.0 103/ul Normal 4.0-11.0 [facility] Comment on above: Performed By: #### C BC #### [facility] [address] [address] [address] Dwight Mario LIPID PROFILEon 01-29-2022 CHOL-HDL RATIO NORM SEE BELOW Normal [facility] Comment on above: Result Comment: 3.3 - 4.4 LOW RISK 4.4 - 7.1 AVERAGE RISK 7.1 - 11.0 MODERATE RISK >11.0 HIGH RISK Performed By: #### L IPID, BMP, ALT, TSH ####[facility] [address] [address]Dr. Dwight Mario Cholesterol [Mass/Vol] 184 mg/dL Normal <=200 [facility] Comment on above: Performed By: #### L IPID, BMP, ALT, TSH ####[facility] [address] [address]DrJose Mario Cholesterol in HDL [Mass/Vol] 61 mg/dL Critically high 40-60 [facility] Comment on above: Performed By: #### L IPID, BMP, ALT, TSH ####[facility] [address] [address]DrJose Mario Cholesterol in LDL [Mass/Vol] 96.0 mg/dL Normal [facility] Comment on above: Performed By: #### L IPID, BMP, ALT, TSH ####[facility] [address] [address]DrJose Mario Cholesterol.total/Choles terol in HDL [Mass ratio] 3.0 {ratio} Normal [facility] Comment on above: Performed By: #### L IPID, BMP, ALT, TSH ####[facility] [address] [address]Dr. Dwight Mario HDL NORMAL > or = 60 mg/dl - LO W CARDIOVASCULAR RISK <40 mg/dl - HIGH CARDIOVASCULAR RISK Normal [facility] Comment on above: Performed By: #### L IPID, BMP, ALT, TSH ####[facility] [address] [address]Dr. Dwight Mario LDL CALC NORMAL SEE BELOW Normal [facility] Comment on above: Result Comment: <100 mg/dl OPTIMAL 100 - 129 mg/dl NEAR OR ABOVE OPTIMAL 130 - 159 mg/dl BORDERLINE HIGH 160 - 189 mg/dl HIGH >190 mg/dl VERY HIGH Performed By: #### L IPID, BMP, ALT, TSH ####[facility] [address] [address]DrJose Mario Triglyceride [Mass/Vol] 135 mg/dL Normal <=150 [facility] Comment on above: Performed By: #### L IPID, BMP, ALT, TSH ####[facility] [address] [address]Dr. Dwight Mario VLDL CALC 27.0 mg/dL Normal [facility] Comment on above: Performed By: #### L IPID, BMP, ALT, TSH ####[facility] [address] [address]DrJose Mario MG MAMM SCREEN 3D ALLEGRA CADon 01-29-2022 MG MAMM SCREEN 3D ALLEGRA CAD Patient: MUNIRA CHESTER Exam Date: 01/29/2022 : 1950 Gender:F Ordering : DR ANDREA GOLDEN D.O. Admission #: [id number] Family : DR. MADISON BURNS D.O. Order #: [id number] CLICK HERE TO VIEW EXAM RADIOLOGY REPORT [...] breast cancer at age 61. LOCATION: [facility] BREAST COMPOSITION: Scattered areas fibroglandular density. FINDINGS: [...] MD on 01/29/2022 at 15:25 Normal [facility] PROF CHEM 8 (BAS METB)on Anion gap [Moles/Vol] 9.7 mmol/L Normal [facility] Comment on above: Performed By: #### L IPID, BMP, ALT, TSH ####[facility] [address] [place], [place] [address]Dr. Dwight Mario Calcium [Mass/Vol] 8.9 mg/dL Normal 8.5-10.1 [facility] Comment on above: Performed By: #### L IPID, BMP, ALT, TSH ####[facility] [address] [address]Dr. Dwight Mario Chloride [Moles/Vol] 105 mmol/L Normal 98-107 [facility] Comment on above: Performed By: #### L IPID, BMP, ALT, TSH ####[facility] [address] [address]Dr. Dwight Mario CO2 [Moles/Vol] 27.3 mmol/L Normal 21.0-32.0 [facility] Comment on above: Performed By: #### L IPID, BMP, ALT, TSH ####[facility] [address] [address]Dr. Dwight Mario Creatinine [Mass/Vol] 0.80 mg/dL Normal 0.55-1.02 [facility] Comment on above: Performed By: #### L IPID, BMP, ALT, TSH ####[facility] [address] [address]Dr. Dwight Mario EGFR-AF TRISTANIAN >60 Normal >=60 [facility] Comment on above: Performed By: #### L IPID, BMP, ALT, TSH ####[facility] [address] [address]Dr. Dwight Mario EGFR-NON AF TRISTANIAN >60 Normal >=60 [facility] Comment on above: Performed By: #### L IPID, BMP, ALT, TSH ####[facility] [address] [address]Dr. Dwight Mario Glucose [Mass/Vol] 107 mg/dL Critically high 74-106 [facility] Comment on above: Performed By: #### L IPID, BMP, ALT, TSH ####[facility] [address] [place], [place] [address]Dr. Dwight Mario Potassium [Moles/Vol] 4.0 mmol/L Normal 3.5-5.1 [facility] Comment on above: Performed By: #### L IPID, BMP, ALT, TSH ####[facility] [address] [place], [place] [address]Dr. Dwight Mario Sodium [Moles/Vol] 138 mmol/L Normal 136-145 [facility] Comment on above: Performed By: #### L IPID, BMP, ALT, TSH ####[facility] [address] [place], [place] [address]Dr. Dwight Mario Urea nitrogen [Mass/Vol] 20.0 mg/dL Critically high 7.0-18 .0 [facility] Comment on above: Performed By: #### L IPID, BMP, ALT, TSH ####[facility] [address] [place], [place] [address]Dr. Dwight Mario Urea nitrogen/Creatinine [Mass ratio] 25.0 mg/mg Normal [facility] Comment on above: Performed By: #### L IPID, BMP, ALT, TSH ####[facility] [address] [place], [place] [address]Rd. Dwight Mario SGPTon 01-29-2022 ALT [Catalytic activity/Vol] 26 U/L Normal 14-59 [facility] Comment on above: Performed By: #### L IPID, BMP, ALT, TSH ####[facility] [address] [place], [place] [address]Xn. Dwight Mario TSHon 01-29-2022 TSH 5.901 uIU/mL Critically high 0.358-3.74 0 [facility] Comment on above: Performed By: #### L IPID, BMP, ALT, TSH ####[facility] [address] [place], [place] [address]Fh. Dwight Mario XR shoulder LT min 2V*on XR shoulder LT min 2V* [facility] [place] [address] [place] [address] XRay Report Signed Patient: Munira Chester MR#: [id number] : 1950 Acct:[id number] Age/Sex: 71 / F ADM Date: 10/10/21 Loc: [facility] Room: Type: [facility] Attending Dr: Espinoza Ruiz MD Copies [...] Abelino Prado M.D.10/10/2021 1:25 PM Dictation Location: [place] [address] Transcribed By: MOHAN 10/10/21 1325 Dictated By: Abelino Prado II, MD 10/10/21 1324 Signed By: 10/10/21 1325 [facility] MRI SHOULDER LT WO CONon [...] by: YOVANA COTTRELL Date: 2021-10-03 15:02 Normal [facility] Vital Signs Date Time Vital Sign Value Performing Clinician Facility 08-05-2024 14:20-0400 Blood Pressure Location Graitecrichard ShineonjerelAvailigent [facility] 08-05-2024 14:20-0400 Diastolic blood pressure 82 mm[Hg] Mohhakud Mouchli [facility] 08-05-2024 14:20-0400 Heart rate 82 /min Luciehakurichard Franciscali [facility] 08-05-2024 14:20-0400 Respiratory rate 14 /min Graitecrichard AntonjerelAvailigent [facility] 08-05-2024 14:20-0400 Systolic blood pressure 127 mm[Hg] Hairichard Antonsana [facility] 07-13-2024 15:50-0400 Diastolic blood pressure 84 mm[Hg] Kasey Fallon MD Work Phone: [facility] 07-13-2024 15:50-0400 Heart rate 68 /min Kasey Fallon MD Work Phone: [facility] 07-13-2024 15:50-0400 SaO2% (BldA) [Mass fraction] 94 % Kasey Fallon MD Work Phone: [facility] 07-13-2024 15:50-0400 Systolic blood pressure 136 mm[Hg] Kasey Fallon MD Work Phone: [facility] 07-13-2024 15:20-0400 Body temperature 97.7 [degF] Kasey Fallon MD Work Phone: [facility] 07-13-2024 15:20-0400 Respiratory rate 18 /min Kasey Fallon MD Work Phone: [facility] 07-13-2024 12:52-0400 Body height 160 cm Kasey Fallon MD Work Phone: [facility] 07-13-2024 12:52-0400 Body mass index (BMI) [Ratio] 29.23 kg/m2 Kasey Fallon MD Work Phone: [facility] 07-13-2024 12:52-0400 Body weight 74.84 kg Kasey Fallon MD Work Phone: [facility] 06-02-2024 10:08-0400 Heart rate 75 /min [facility] 06-02-2024 10:08-0400 SaO2% (BldA) [Mass fraction] 97 % [facility] 06-02-2024 10:08-0400 Diastolic blood pressure 78 mm[Hg] [facility] 06-02-2024 10:08-0400 Mean blood pressure 95 mm[Hg] [facility] 06-02-2024 10:08-0400 Systolic blood pressure 130 mm[Hg] [facility] 06-02-2024 09:13-0400 Heart rate 73 /min [facility] 06-02-2024 09:13-0400 SaO2% (BldA) [Mass fraction] 95 % [facility] 06-02-2024 09:13-0400 Diastolic blood pressure 64 mm[Hg] [facility] 06-02-2024 09:13-0400 Mean blood pressure 79 mm[Hg] [facility] 06-02-2024 09:13-0400 Systolic blood pressure 110 mm[Hg] [facility] 06-02-2024 09:03-0400 Blood Pressure Location [facility] 06-02-2024 09:03-0400 Body temperature 97.7 [degF] [facility] 06-02-2024 09:03-0400 Diastolic blood pressure 65 mm[Hg] [facility] 06-02-2024 09:03-0400 Heart rate 64 /min [facility] 06-02-2024 09:03-0400 Mean blood pressure 80 mm[Hg] [facility] 06-02-2024 09:03-0400 Respiratory rate 16 /min [facility] 06-02-2024 09:03-0400 SaO2% (BldA) [Mass fraction] 96 % [facility] 06-02-2024 09:03-0400 Systolic blood pressure 110 mm[Hg] [facility] 06-02-2024 08:51-0400 Blood Pressure Location [facility] 06-02-2024 08:51-0400 Mean blood pressure 77 mm[Hg] [facility] 06-02-2024 08:51-0400 Respiratory rate 10 /min [facility] 06-02-2024 08:46-0400 Blood Pressure Location [facility] 06-02-2024 08:46-0400 Mean blood pressure 72 mm[Hg] [facility] 06-02-2024 08:46-0400 Respiratory rate 9 /min [facility] 06-02-2024 08:36-0400 Body temperature 97.52 [degF] [facility] 06-02-2024 08:30-0400 Respiratory rate 17 /min [facility] 06-02-2024 08:25-0400 Respiratory rate 12 /min [facility] 06-02-2024 08:20-0400 Respiratory rate 20 /min [facility] 06-02-2024 06:36-0400 Mean blood pressure 81 mm[Hg] [facility] 06-02-2024 06:36-0400 Heart rate 62 /min [facility] 06-02-2024 06:35-0400 Body temperature 97.7 [degF] [facility] 05-20-2024 07:38-0500 Blood Pressure Location [facility] 05-20-2024 07:38-0500 Diastolic blood pressure 72 mm[Hg] [facility] 05-20-2024 07:38-0500 Heart rate 80 /min [facility] 05-20-2024 07:38-0500 Mean blood pressure 96 mm[Hg] [facility] 05-20-2024 07:38-0500 Systolic blood pressure 144 mm[Hg] [facility] 05-20-2024 07:37-0500 Heart rate 78 /min [facility] 05-20-2024 07:37-0500 SaO2% (BldA) [Mass fraction] 98 % [facility] 05-20-2024 07:37-0500 Respiratory rate 18 /min [facility] 05-20-2024 07:36-0500 Blood Pressure Location [facility] 05-20-2024 07:36-0500 Diastolic blood pressure 80 mm[Hg] [facility] 05-20-2024 07:36-0500 Mean blood pressure 104 mm[Hg] [facility] 05-20-2024 07:36-0500 Systolic blood pressure 151 mm[Hg] [facility] 04-30-2024 09:01-0500 Body height 157.5 cm Charito Vasquez MD Work Phone: [facility] 04-30-2024 09:01-0500 Body mass index (BMI) [Ratio] 30 kg/m2 Charito Vasquez MD Work Phone: [facility] 04-30-2024 09:01-0500 Body weight 74.39 kg Charito Vasquez MD Work Phone: [facility] 04-22-2024 10:50-0500 Blood Pressure Location [facility] 04-22-2024 10:50-0500 Diastolic blood pressure 66 mm[Hg] [facility] 04-22-2024 10:50-0500 Heart rate 68 /min [facility] 04-22-2024 10:50-0500 Systolic blood pressure 126 mm[Hg] [facility] 04-16-2024 10:59-0500 Body mass index (BMI) [Ratio] 30 kg/m2 Madison Rinkes DO Work Phone: [facility] 04-16-2024 10:59-0500 Body weight 74.39 kg Madison Rinkes DO Work Phone: [facility] 04-16-2024 10:59-0500 Diastolic blood pressure 76 mm[Hg] Madison Rinkes DO Work Phone: [facility] 04-16-2024 10:59-0500 Systolic blood pressure 130 mm[Hg] Madison Rinkes DO Work Phone: [facility] 04-07-2024 12:01-0500 Heart rate 77 /min [facility] 04-07-2024 12:01-0500 SaO2% (BldA) [Mass fraction] 95 % [facility] 04-07-2024 12:01-0500 Diastolic blood pressure 84 mm[Hg] [facility] 04-07-2024 12:01-0500 Mean blood pressure 108 mm[Hg] [facility] 04-07-2024 12:01-0500 Systolic blood pressure 156 mm[Hg] [facility] 04-07-2024 12:01-0500 Respiratory rate 16 /min [facility] 04-07-2024 11:07-0500 Heart rate 64 /min [facility] 04-07-2024 11:07-0500 SaO2% (BldA) [Mass fraction] 97 % [facility] 04-07-2024 11:05-0500 Respiratory rate 16 /min [facility] 04-07-2024 11:05-0500 Diastolic blood pressure 76 mm[Hg] [facility] 04-07-2024 11:05-0500 Mean blood pressure 94 mm[Hg] [facility] 04-07-2024 11:05-0500 Systolic blood pressure 131 mm[Hg] [facility] 04-07-2024 10:48-0500 Body temperature 97.7 [degF] [facility] 04-07-2024 10:48-0500 Diastolic blood pressure 83 mm[Hg] [facility] 04-07-2024 10:48-0500 Heart rate 63 /min [facility] 04-07-2024 10:48-0500 Mean blood pressure 103 mm[Hg] [facility] 04-07-2024 10:48-0500 Respiratory rate 21 /min [facility] 04-07-2024 10:48-0500 SaO2% (BldA) [Mass fraction] 97 % [facility] 04-07-2024 10:48-0500 Systolic blood pressure 142 mm[Hg] [facility] 04-07-2024 10:35-0500 Mean blood pressure 92 mm[Hg] [facility] 04-07-2024 10:35-0500 Respiratory rate 12 /min [facility] 04-07-2024 10:30-0500 Mean blood pressure 94 mm[Hg] [facility] 04-07-2024 10:30-0500 Respiratory rate 10 /min [facility] 04-07-2024 10:23-0500 Blood Pressure Location [facility] 04-07-2024 10:23-0500 Body temperature 97.52 [degF] [facility] 04-07-2024 10:15-0500 Respiratory rate 3 /min [facility] 04-07-2024 07:38-0500 Mean blood pressure 92 mm[Hg] [facility] 03-24-2024 07:32-0500 Blood Pressure Location [facility] 03-24-2024 07:32-0500 Diastolic blood pressure 79 mm[Hg] [facility] 03-24-2024 07:32-0500 Heart rate 87 /min [facility] 03-24-2024 07:32-0500 Mean blood pressure 101 mm[Hg] [facility] 03-24-2024 07:32-0500 Systolic blood pressure 145 mm[Hg] [facility] 03-24-2024 07:32-0500 Heart rate 85 /min [facility] 03-24-2024 07:32-0500 SaO2% (BldA) [Mass fraction] 98 % [facility] 03-24-2024 07:32-0500 Respiratory rate 18 /min [facility] 03-24-2024 07:32-0500 Blood Pressure Location [facility] 03-24-2024 07:32-0500 Diastolic blood pressure 76 mm[Hg] [facility] 03-24-2024 07:32-0500 Mean blood pressure 98 mm[Hg] [facility] 03-24-2024 07:32-0500 Systolic blood pressure 141 mm[Hg] [facility] 02-05-2024 11:04-0500 Blood Pressure Location [facility] 02-05-2024 11:04-0500 Diastolic blood pressure 78 mm[Hg] [facility] 02-05-2024 11:04-0500 Heart rate 60 /min [facility] [facility]24 11:04-0500 Systolic blood pressure 90 mm[Hg] Asuncion Buchanan [facility] 02-05-2024 08:33-0500 Body height 154.94 cm [facility] 02-05-2024 08:33-0500 Body mass index (BMI) [Ratio] 31.6 kg/m2 [facility] 02-05-2024 08:33-0500 Body weight 75.8 kg [facility] 02-05-2024 08:33-0500 Diastolic blood pressure 71 mm[Hg] [facility] 02-05-2024 08:33-0500 Heart rate 73 /min [facility] 02-05-2024 08:33-0500 Respiratory rate 12 /min [facility] 02-05-2024 08:33-0500 Systolic blood pressure 147 mm[Hg] [facility] 12-27-2023 14:40-0400 Body height 157.5 cm Kasey Fallon MD Work Phone: [facility] 12-27-2023 14:40-0400 Body mass index (BMI) [Ratio] 30.36 kg/m2 Kasey Fallon MD Work Phone: [facility] 12-27-2023 14:40-0400 Body temperature 98.29 [degF] Kasey Fallon MD Work Phone: [facility] 12-27-2023 14:40-0400 Body weight 75.3 kg Kasey Fallon MD Work Phone: [facility] 12-27-2023 14:40-0400 Diastolic blood pressure 72 mm[Hg] Kasey Fallon MD Work Phone: [facility] 12-27-2023 14:40-0400 Heart rate 68 /min Kasey Fallon MD Work Phone: [facility] 12-27-2023 14:40-0400 SaO2% (BldA) [Mass fraction] 95 % Kasey Fallon MD Work Phone: [facility] 12-27-2023 14:40-0400 Systolic blood pressure 136 mm[Hg] Ksaey Fallon MD Work Phone: [facility] 09-14-2023 09:32-0400 Body height 160 cm Jhonny Maher MD Work Phone: [facility] 09-14-2023 09:32-0400 Body mass index (BMI) [Ratio] 28.71 kg/m2 Jhonny Maher MD Work Phone: [facility] 09-14-2023 09:32-0400 Body weight 73.53 kg Jhonny Maher MD Work Phone: [facility] 08-20-2023 15:47-0400 Body height 154.94 cm [facility] 08-20-2023 15:47-0400 Body mass index (BMI) [Ratio] 29.7 kg/m2 [facility] 08-20-2023 15:47-0400 Body temperature 97.5 [degF] [facility] 08-20-2023 15:47-0400 Body weight 71.44 kg [facility] 08-20-2023 15:47-0400 Diastolic blood pressure 77 mm[Hg] [facility] 08-20-2023 15:47-0400 Heart rate 88 /min [facility] 08-20-2023 15:47-0400 Respiratory rate 18 /min [facility] 08-20-2023 15:47-0400 SaO2% (BldA) [Mass fraction] 94 % [facility] 08-20-2023 15:47-0400 Systolic blood pressure 127 mm[Hg] [facility] 08-15-2023 08:14-0400 Blood Pressure Location Del Nettles [facility] 08-15-2023 08:14-0400 Diastolic blood pressure 75 mm[Hg] Del Nettles [facility] 08-15-2023 08:14-0400 Heart rate 80 /min Del Nettles [facility] 08-15-2023 08:14-0400 Respiratory rate 16 /min Del Nettles [facility] 08-15-2023 08:14-0400 Systolic blood pressure 126 mm[Hg] Del Nettles [facility] 06-21-2023 14:42-0400 Body height 154.94 cm [facility] 06-21-2023 14:42-0400 Body mass index (BMI) [Ratio] 29.3 kg/m2 [facility] 06-21-2023 14:42-0400 Body weight 70.53 kg [facility] 06-21-2023 14:42-0400 Diastolic blood pressure 79 mm[Hg] [facility] 06-21-2023 14:42-0400 Heart rate 81 /min [facility] 06-21-2023 14:42-0400 Respiratory rate 20 /min [facility] 06-21-2023 14:42-0400 SaO2% (BldA) [Mass fraction] 98 % [facility] 06-21-2023 14:42-0400 Systolic blood pressure 138 mm[Hg] [facility] 05-30-2023 08:08-0400 Blood Pressure Location Del Nettles [facility] 05-30-2023 08:08-0400 Diastolic blood pressure 78 mm[Hg] Del Nettles [facility] 05-30-2023 08:08-0400 Heart rate 80 /min Del Nettles [facility] 05-30-2023 08:08-0400 Respiratory rate 16 /min Mohamad Mouchli [facility] 05-30-2023 08:08-0400 Systolic blood pressure 126 mm[Hg] Mohamad Mouchli [facility] 05-22-2023 09:15-0500 Diastolic blood pressure 75 mm[Hg] Mohamad Mouchli [facility] 05-22-2023 09:15-0500 Heart rate 62 /min Mohamad Mouchli [facility] 05-22-2023 09:15-0500 Mean blood pressure 87 mm[Hg] Mohamad Mouchli [facility] 05-22-2023 09:15-0500 Respiratory rate 19 /min Mohamad Mouchli [facility] 05-22-2023 09:15-0500 SaO2% (BldA) [Mass fraction] 96 % Mohamad Mouchli [facility] 05-22-2023 09:15-0500 Systolic blood pressure 112 mm[Hg] Mohamad Mouchli [facility] 05-22-2023 09:05-0500 Diastolic blood pressure 71 mm[Hg] Mohamad Mouchli [facility] 05-22-2023 09:05-0500 Heart rate 65 /min Mohamad Mouchli [facility] 05-22-2023 09:05-0500 Mean blood pressure 84 mm[Hg] Mohamad Mouchli [facility] 05-22-2023 09:05-0500 Respiratory rate 10 /min Mohamad Mouchli [facility] 05-22-2023 09:05-0500 SaO2% (BldA) [Mass fraction] 95 % Mohamad Mouchli [facility] 05-22-2023 09:05-0500 Systolic blood pressure 111 mm[Hg] Mohamad Mouchli [facility] 05-22-2023 09:00-0500 Diastolic blood pressure 70 mm[Hg] Mohamad Mouchli [facility] 05-22-2023 09:00-0500 Heart rate 66 /min Mohamad Mouchli [facility] 05-22-2023 09:00-0500 Respiratory rate 15 /min Mohamad Mouchli [facility] 05-22-2023 09:00-0500 SaO2% (BldA) [Mass fraction] 99 % Mohamad Mouchli [facility] 05-22-2023 09:00-0500 Systolic blood pressure 113 mm[Hg] Mohamad Mouchli [facility] 05-22-2023 08:50-0500 Body temperature 97.52 [degF] Mohamad Mouchli [facility] 05-22-2023 08:45-0500 Respiratory rate 24 /min Mohamad Mouchli [facility] 05-22-2023 08:40-0500 Respiratory rate 24 /min Mohamad Mouchli [facility] 05-22-2023 08:35-0500 Respiratory rate 22 /min Mohamad Mouchli [facility] 05-22-2023 07:14-0500 Blood Pressure Location Mohamad Mouchli [facility] 05-22-2023 07:14-0500 Body temperature 97.88 [degF] Mohliud Mouchli [facility] 05-14-2023 12:52-0500 Blood Pressure Location Graitecd Antonuchli [facility] 05-14-2023 12:52-0500 Diastolic blood pressure 89 mm[Hg] Mohamad Mouchli [facility] 05-14-2023 12:52-0500 Heart rate 89 /min Graitecd Mouchli [facility] 05-14-2023 12:52-0500 Respiratory rate 16 /min Graitecd Shineonuchli [facility] 05-14-2023 12:52-0500 Systolic blood pressure 135 mm[Hg] Haid Antonuchli [facility] 04-16-2023 09:00-0500 Body height 154.94 cm Andrea Ball Other [facility] 04-16-2023 09:00-0500 Body mass index (BMI) [Ratio] 30.12 kg/m2 Andrea Ball Other [facility] Other 04-16-2023 09:00-0500 Body weight 72.3 kg Andrea Ball Other [facility] 04-16-2023 09:00-0500 Diastolic blood pressure 86 mm[Hg] Andrea Ball Other [facility] 04-16-2023 09:00-0500 Respiratory rate 20 /min Andrea Ball Other [facility] Other 04-16-2023 09:00-0500 SaO2% (BldA) [Mass fraction] 95 % Andrea Ball Other [facility] Other 04-16-2023 09:00-0500 Systolic blood pressure 150 mm[Hg] Andrea Ball Other [facility] 02-18-2023 11:45-0500 Body height 154.94 cm Andrea Ball Other [facility] Other 02-18-2023 11:45-0500 Body mass index (BMI) [Ratio] 29.4 kg/m2 Andrea Ball Other [facility] Other 02-18-2023 11:45-0500 Body weight 70.58 kg Andrea Ball Other [facility] Other 02-18-2023 11:45-0500 Diastolic blood pressure 80 mm[Hg] Andrea Ball Other [facility] Other 02-18-2023 11:45-0500 Respiratory rate 12 /min Andrea Ball Other [facility] Other 02-18-2023 11:45-0500 SaO2% (BldA) [Mass fraction] 98 % Andrea Ball Other [facility] Other 02-18-2023 11:45-0500 Systolic blood pressure 148 mm[Hg] Andrea Ball Other [facility] Other 01-25-2023 08:30-0500 Body height 154.94 cm Andrea Ball Other [facility] Other 01-25-2023 08:30-0500 Body mass index (BMI) [Ratio] 29.59 kg/m2 Andrea Ball Other [facility] Other 01-25-2023 08:30-0500 Body weight 71.03 kg Andrea Ball Other [facility] Other 01-25-2023 08:30-0500 Diastolic blood pressure 77 mm[Hg] Andrea Ball Other [facility] Other 01-25-2023 08:30-0500 Respiratory rate 12 /min Andrea Ball Other [facility] Other 01-25-2023 08:30-0500 Systolic blood pressure 118 mm[Hg] Andrea Ball Other [facility] Other 12-12-2022 13:45-0400 Body height 154.94 cm Andrea Ball Other [facility] Other 12-12-2022 13:45-0400 Body mass index (BMI) [Ratio] 29.36 kg/m2 Andrea Ball Other [facility] Other 12-12-2022 13:45-0400 Body weight 70.49 kg Andrea Ball Other [facility] Other 12-12-2022 13:45-0400 Diastolic blood pressure 79 mm[Hg] Andrea Ball Other [facility] Other 12-12-2022 13:45-0400 Respiratory rate 12 /min Andrea Ball Other [facility] Other 12-12-2022 13:45-0400 SaO2% (BldA) [Mass fraction] 98 % Andrea Ball Other [facility] Other 12-12-2022 13:45-0400 Systolic blood pressure 130 mm[Hg] Andrea Ball Other [facility] Other 11-01-2022 15:05-0400 Body height 154.94 cm Shannan Webster Other [facility] Other 11-01-2022 15:05-0400 Body mass index (BMI) [Ratio] 28.34 kg/m2 Shannan Webster Other [facility] Other 11-01-2022 15:05-0400 Body temperature 96.2 [degF] Shannan Webster Other [facility] Other 11-01-2022 15:05-0400 Body weight 68.04 kg Shannan Webster Other [facility] Other 11-01-2022 15:05-0400 Diastolic blood pressure 69 mm[Hg] Shannan Webster Other [facility] Other 11-01-2022 15:05-0400 Respiratory rate 18 /min Shannan Webster Other [facility] Other 11-01-2022 15:05-0400 SaO2% (BldA) [Mass fraction] 99 % Shannan Webster Other [facility] Other 11-01-2022 15:05-0400 Systolic blood pressure 130 mm[Hg] Shannan Webster Other [facility] Other 03-05-2022 15:00-0500 Body height 162.56 cm Luma Chirinos Other [facility] Other 12-01-2021 09:55-0400 Blood Pressure Location Asuncion Lue [facility] 12-01-2021 09:55-0400 Diastolic blood pressure 89 mm[Hg] Asuncion Lue [facility] 12-01-2021 09:55-0400 Heart rate 81 /min Asuncion Buchanan [facility] 12-01-2021 09:55-0400 Systolic blood pressure 140 mm[Hg] Asuncion Lubharati [facility] 10-10-2021 10:15-0400 Body height 162.56 cm Espinoza Olexa Other [facility] Other 10-10-2021 10:15-0400 Body mass index (BMI) [Ratio] 24.89 kg/m2 Espinoza Olexa Other [facility] Other 10-10-2021 10:15-0400 Body weight 65.77 kg Espinoza Olexa Other [facility] Other Encounters Encounter Date Encounter Type Care Provider Facility Start: 12-10-2024 End: 12-10-2024 ambulatory Del Nettles Facility:[facility] Start: 12-10-2024 End: 12-10-2024 Patient encounter procedure Del Nettles [facility] Start: 10-29-2024 End: 10-30-2024 Telephone encounter Marci Alberts MD Work Phone: [facility] Comment on above: refill Start: 08-05-2024 End: 08-05-2024 ambulatory Del Nettles Facility:[facility] Start: 08-05-2024 End: 08-05-2024 Patient encounter procedure Del Nettles 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) Start: 07-20-2024 End: 09-19-2024 Follow-up encounter Kasey Fallon MD Work Phone: Gastroenterology Start: 07-13-2024 ambulatory ANDREA Parada y:[facility] Start: 07-13-2024 End: 07-13-2024 Subsequent hospital visit by physician Kasey Fallon MD Work Phone: Gastroenterology Comment on above: Iron deficiency anem ia due to chronic blood loss [D50.0] Start: 07-08-2024 End: 07-08-2024 ambulatory Asuncion Buchanan Facility:[facility] Start: 07-06-2024 End: 07-06-2024 ambulatory 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 Start: 07-01-2024 End: 07-01-2024 Telephone encounter Jacqueline Hong RNcorn sheller operator Comment on above: Education Of Patient /family; Patient Question (Message sent to referring physician regarding a substitute for Gatorade) Start: 06-02-2024 End: 06-02-2024 Admission to same day surgery center Asuncion Buchanan [facility] Start: 06-02-2024 End: 06-02-2024 ambulatory Asuncion Buchanan Facility:[facility] Start: 05-22-2024 End: 05-22-2024 Telephone encounter Kasey Fallon MD Work Phone: Gastroenterology Comment on above: Patient Question Start: 05-20-2024 End: 05-20-2024 ambulatory Asuncion Buchanan Facility:[facility] Start: 05-20-2024 End: 05-20-2024 Patient encounter procedure Asuncion Buchanan [facility] Start: 04-30-2024 End: 04-30-2024 Bamboo flowsheet Charito Vasquez MD Work Phone: [facility] Start: 04-30-2024 End: 04-30-2024 Bamboo flowsdanial Vasquez MD Work Phone: [facility] Start: 04-30-2024 End: 04-30-2024 Office outpatient visit 15 minutes Charito Vasquez MD Work Phone: [facility] Comment on above: Chronic maxillary si nusitis (Primary Dx) Start: 04-30-2024 End: 04-30-2024 ambulatory CHARITO VASQUEZ Not Available Start: 04-22-2024 End: 04-22-2024 ambulatory Asuncion uBchanan Facility:[facility] Start: 04-22-2024 End: 04-22-2024 Patient encounter procedure Asuncion Buchanan [facility] Start: 04-16-2024 End: 04-16-2024 Bamboo flowsheet Madison E Rinkes DO Work Phone: [facility] Start: 04-16-2024 End: 04-16-2024 Bamboo flowsheet Madison E Rinkes DO Work Phone: [facility] Start: 04-16-2024 End: 04-16-2024 Patient encounter status Madison E Rinkes DO Work Phone: [facility] Start: 04-16-2024 End: 04-16-2024 Periodic preventive med est patient 65yrs& older Madison E Rinkes DO Work Phone: [facility] Comment on above: Encounter for gyneco logical examination without abnormal finding; Screening for malignant neoplasm of cervix; Encounter for screening mammogram for breast cancer; Lichen sclerosus et atrophicus; Screening for osteoporosis; Postmenopausal status, age-related Start: 04-16-2024 End: 04-16-2024 ambulatory MADISON HOLTKES Not Available Start: 04-08-2024 End: 04-08-2024 ambulatory Asuncion M. Lue Facility:[facility] Start: 04-08-2024 End: 04-08-2024 Patient encounter procedure Asuncino M. Lue [facility] Start: 04-07-2024 End: 04-07-2024 Admission to same day surgery center Asuncion Mitchell. Anitae [facility] Start: 04-07-2024 End: 04-07-2024 ambulatory Asuncion M. Lue Facility:[facility] Start: 03-24-2024 End: 03-24-2024 ambulatory Asuncion M. Lue Facility:[facility] Start: 03-24-2024 End: 03-24-2024 Patient encounter procedure Asuncino M. Lue [facility] Start: 02-24-2024 End: 02-24-2024 ambulatory Asuncion M. Lue Facility:[facility] Start: 02-24-2024 End: 02-24-2024 Patient encounter procedure Asuncion M. Lue [facility] Start: 02-05-2024 End: 02-05-2024 ambulatory Asuncion M. Lue Facility:[facility] Start: 02-05-2024 End: 02-05-2024 Patient encounter [facility] Start: 02-05-2024 End: 02-05-2024 ambulatory [facility] Work Phone: Start: 02-05-2024 End: 02-05-2024 Patient encounter procedure [facility] Work Phone: Start: 02-02-2024 Patient encounter procedure [facility] Start: 01-29-2024 Non-patient / Non-visit [facility] Work Phone: Start: 01-29-2024 End: 01-29-2024 ambulatory MARSHA Richard LAL Not Available Start: 12-30-2023 End: 12-30-2023 Bamreji flowsdanial Vasquez MD Work Phone: [facility] Start: 12-30-2023 End: 12-30-2023 Bamboo flowsheet Charito Vasquez MD Work Phone: [facility] [...] tract imaging Start: 12-27-2023 End: 12-27-2023 ambulatory JONES ACE Facility:[facility] Start: 12-27-2023 End: 12-27-2023 Lab Drop off Asuncion Buchanan [facility] Start: 12-27-2023 End: 12-27-2023 ambulatory Asuncion Buchanan Facility:[facility] Start: 12-27-2023 End: 12-27-2023 Patient encounter procedure Asuncion Buchanan 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] Start: 12-04-2023 End: 12-04-2023 Telephone encounter Kasey Fallon MD Work Phone: Gastroenterology Comment on above: help rescheduling GI test Start: 11-22-2023 [facility] Work Phone: Start: 11-04-2023 End: 11-04-2023 ambulatory LUMA J [facility] Start: 10-31-2023 Telephone encounter Kasey abarca MD Work Phone: Gastroenterology Comment on above: Patient Question Other partial intest inal obstruction (HCC) (Primary Dx) Start: 10-16-2023 Telephone encounter [facility] Provider Angle [facility] Comment on above: Consult Start: 10-08-2023 End: 10-08-2023 ambulatory DARLINE Najera [facility] Start: 09-23-2023 End: 09-23-2023 ambulatory CHARITO VASQUEZ Not Available Start: 09-14-2023 End: 09-14-2023 Office outpatient new 60 minutes Jhonny Maher MD Work Phone: [facility] Comment on above: Chronic maxillary si nusitis (Primary Dx); Chronic ethmoiditis; Chronic cough; Asthma, unspecified asthma severity, unspecified whether complicated, unspecified whether persistent ([facility]) Start: 09-14-2023 End: 09-14-2023 ambulatory JHONNY MAHER [facility] Start: 08-20-2023 End: 08-20-2023 ambulatory [facility] Work Phone: Start: 08-20-2023 End: 08-20-2023 [facility] Work Phone: Start: 08-15-2023 End: 08-15-2023 ambulatory Del Nettles Facility:[facility] Start: 08-15-2023 End: 08-15-2023 Patient encounter procedure Del Nettles [facility] Start: 08-14-2023 End: 08-14-2023 ambulatory CHARITO E RAMBASEK Not Available Start: 07-31-2023 End: 07-31-2023 ambulatory MARCI H TIMMIS Not Available Start: 07-23-2023 End: 07-23-2023 ambulatory Marci H Timmis Facility:[facility] Start: 07-23-2023 End: 07-23-2023 Patient encounter procedure Marci H Timmis [facility] Start: 07-17-2023 End: 07-17-2023 ambulatory Del Nettles Facility:[facility] Start: 07-17-2023 End: 07-17-2023 Patient encounter procedure Del Nettles [facility] Start: 07-05-2023 End: 07-05-2023 ambulatory Del Nettles Facility:[facility] Start: 07-05-2023 End: 07-05-2023 Patient encounter procedure Del Nettles [facility] Start: 07-04-2023 End: 07-04-2023 ambulatory Del Nettles Facility:[facility] Start: 07-04-2023 End: 07-04-2023 Patient encounter procedure Del Nettles [facility] Start: 07-03-2023 End: 07-03-2023 ambulatory CHARITO E RAMBASEK Not Available Start: 07-02-2023 End: 07-02-2023 ambulatory MARCI ALBERTS Not Available Start: 07-02-2023 Non-patient / Non-visit [facility] Work Phone: Start: 06-27-2023 Non-patient / Non-visit [facility] Work Phone: Start: 06-25-2023 ambulatory Del Nettles [facility] lity:[facility] Start: 06-21-2023 End: 06-21-2023 ambulatory [facility] Work Phone: Start: 06-21-2023 End: 06-21-2023 Patient encounter procedure [facility] Work Phone: Start: 05-30-2023 End: 05-30-2023 ambulatory Del Nettles Facility:[facility] Start: 05-30-2023 End: 05-30-2023 Patient encounter procedure Del Nettles [facility] Start: 05-29-2023 End: 05-29-2023 ambulatory CHARITO E RAMBASEK Not Available Start: 05-23-2023 Non-patient / Non-visit [facility] Work Phone: Start: 05-22-2023 End: 05-22-2023 ambulatory Del Nettles Facility:[facility] Start: 05-22-2023 End: 05-22-2023 Patient encounter procedure Del Nettles [facility] Start: 05-16-2023 End: 05-16-2023 ambulatory CHARITO E RAMBASEK Not Available Start: 05-14-2023 End: 05-14-2023 ambulatory Del Nettles Facility:[facility] Start: 05-14-2023 End: 05-14-2023 Patient encounter procedure Del Nettles [facility] Start: 04-22-2023 End: 04-22-2023 ambulatory Andrea Ball Other [facility] Other Start: 04-22-2023 Bamboo flowsheet Charito brasher MD Work Phone: [facility] Start: 04-22-2023 Bamboo flowsheet Charito brasher MD Work Phone: [facility] Start: 04-22-2023 Telephone encounter Andrea Ball [facility] Start: 04-19-2023 End: 04-19-2023 ambulatory Andrea Ball Other [facility] Other Start: 04-19-2023 Telephone encounter Andrea Ball [facility] Start: 04-18-2023 Telephone encounter Andrea Ball [facility] Start: 04-18-2023 End: 04-18-2023 ambulatory Andrea Ball Other [facility] Other Start: 04-16-2023 End: 04-16-2023 ambulatory Andrea Ball Other [facility] Other Start: 04-16-2023 Office outpatient vi sit 25 minutes Andrea Ball [facility] Start: 04-16-2023 End: 04-16-2023 Patient encounter procedure [facility] Start: 04-04-2023 End: 04-04-2023 ambulatory Andrae Ball Other [facility] Other Start: 04-04-2023 Telephone encounter Andrea Ball [facility] Start: 03-08-2023 End: 03-08-2023 ambulatory Andrea Ball Other [facility] Other Start: 03-08-2023 Telephone encounter Andrea Ball [facility] Start: 03-06-2023 End: 03-06-2023 ambulatory Andrea Ball Other [facility] Other Start: 03-06-2023 Telephone encounter Andrea Ball [facility] Start: 02-25-2023 End: 02-25-2023 ambulatory Andrea Ball Other [facility] Other Start: 02-25-2023 Telephone encounter Andrea Ball [facility] Start: 02-20-2023 End: 02-20-2023 ambulatory Asuncion Buchanan Facility:[facility] Start: 02-20-2023 End: 02-20-2023 Patient encounter procedure Asuncion Buchanan [facility] Start: 02-18-2023 End: 02-18-2023 ambulatory Andrea Ball Other [facility] Other Start: 02-18-2023 Office outpatient vi sit 15 minutes Andrea Ball [facility] Start: 02-05-2023 End: 02-05-2023 ambulatory Andrea Ball Other [facility] Other Start: 02-05-2023 Telephone encounter Andrea Ball [facility] Start: 01-31-2023 End: 01-31-2023 ambulatory Andrea Ball Other [facility] Other Start: 01-31-2023 Telephone encounter Andrea Ball [facility] Start: 01-29-2023 End: 01-29-2023 ambulatory Andrea Ball Other [facility] Other Start: 01-29-2023 Telephone encounter Andrea Ball [facility] Start: 01-25-2023 End: 01-25-2023 ambulatory Andrea Ball Other [facility] Other Start: 01-25-2023 Patient encounter procedure Andrea Golden [facility] Start: 01-25-2023 Telephone encounter Andrea Golden [facility] Start: 12-12-2022 End: 12-12-2022 ambulatory Andrea Golden Other [facility] Other Start: 12-12-2022 Office outpatient vi sit 15 minutes Andrea Golden [facility] Start: 11-07-2022 End: 11-07-2022 ambulatory Andrea Golden Other [facility] Other Start: 11-07-2022 Telephone encounter Andrea Golden [facility] Start: 11-01-2022 End: 11-01-2022 ambulatory Shannan Webster Other [facility] Other Start: 11-01-2022 Office outpatient vi sit 25 minutes Shannan Webster [facility] Start: 06-27-2022 End: 06-28-[address] JEROME ESPINOSA Facility:H1 Start: 06-04-2022 End: 06-04-2022 ambulatory Andrea Golden Other [facility] Other Start: 06-04-2022 Telephone encounter Andrea Golden [facility] Start: 05-17-2022 End: 05-18-[address] CAMPOS ERAZO Facility:H1 Start: 04-26-2022 End: 04-27-[address] JEROME ESPINOSA Facility:H1 Start: 04-25-2022 End: 04-25-2022 ambulatory Andrea [place] Other [facility] Other Start: 04-25-2022 Telephone encounter Andrea Golden [facility] Start: 04-10-2022 End: 04-10-2022 ambulatory Andrea Golden Other [facility] Other Start: 04-10-2022 Telephone encounter Andrea Ball [facility] Start: 04-07-2022 Encounter for preprocedural cardiovascular examination BASHIR Ramos [facility] Start: 04-07-2022 Encounter for preprocedural laboratory examination BASHIR Ramos [facility] Start: 04-06-2022 End: 04-06-2022 ambulatory Andrea Golden Other [facility] Other Start: 04-06-2022 Telephone encounter Andrea Golden [facility] Start: 04-05-2022 End: 04-05-[address] JEROME ESPINOSA Facility:H1 Start: 04-02-2022 End: 04-03-2022 ambulatory BASHIR Richard DANIELLE Facility:H1 Start: 04-02-2022 End: 04-03-2022 Encounter for preprocedural cardiovascular examination [facility] Start: 03-28-2022 End: 03-29-[address] JEROME ESPINOSA Facility:H1 Start: 03-20-2022 End: 03-21-[address] ANDREA GOLDEN Facility:H1 Start: 03-12-2022 End: 03-12-[address] JEROME ESPINOSA Facility:H1 Start: 03-05-2022 End: 03-05-2022 ambulatory Luma Chirinos Other [facility] Other Start: 03-05-2022 Office outpatient vi sit 15 minutes Luma Chirinos [facility] Start: 01-29-2022 End: 01-30-[address] ANDREA GOLDEN Facility:H1 Start: 01-18-2022 Adult health examination Shannan Webster Other [facility] Other Start: 12-01-2021 End: 12-01-2021 Patient encounter procedure Asuncion Buchanan [facility] Start: 10-10-2021 End: 10-10-2021 ambulatory Espinoza Ruiz Other [facility] Other Start: 10-10-2021 Office outpatient vi sit 25 minutes Espinoza Ruiz [facility] Start: 10-10-2021 End: 10-10-2021 Patient encounter procedure MD Espinoza Ruiz Work Phone: [facility] Start: 10-05-2021 End: 10-05-2021 ambulatory Espinoza Ruiz Other [facility] Other Start: 10-05-2021 Telephone encounter Espinoza Ruiz [facility] Start: 10-02-2021 End: 10-03-[address] ANDREA GOLDEN Facility: Procedures Date Procedure Procedure Detail Performing Clinician Start: 07-13-2024 Endoscopy upper small intestine Kasey Fallon MD Work Phone: Start: 06-02-2024 Cystoscopy Asuncion Buchanan Start: 04-07-2024 Cystoscopy Asuncionemmanuelle Buchanan Start: 02-03-2024 Mammography Marsha Lal DO Work Phone: Start: 01-29-2024 End: 01-29-2024 [facility] xm&eval comprhnsv estab pt 1/> Keratoconjunctivitis [...] Lue Foot structure (body structure) Asuncion Lue History of cholecystectomy Hx of cholecys tectomy Del Nettles Ligation of fallopian tube K athy Lue Repair of musculoten dinous cuff of shoulder Asuncion Lue Screening for malign ant neoplasm of breast Shannan Webster Other Screening for malign ant neoplasm of colon Shannan Webster Other Structure of right w rist (body structure) Asuncion Bcuhanan Thyroidectomy Asuncion Buchanan Plan of Treatment Date Care Activity Detail Author Start: 05-21-2033 Screening for malignant neoplasm of colon [facility] Start: 09-06-2029 Screening for malignant neoplasm of colon [facility] Start: 05-11-2025 End: 05-11-2025 Patient encounter procedure [facility] Start: 02-02-2025 Screening for malignant neoplasm of breast Mammogram [facility] Start: 02-02-2025 End: 02-02-2025 Patient encounter procedure [facility] Start: 12-28-2024 End: 12-28-2024 Patient encounter procedure [facility] Start: 11-16-2024 Influenza vaccination Influenza Vaccine (#1) [facility] Start: 07-13-2024 Covid-19 Vaccine ( season) Covid-19 Vaccine () [facility] Start: 07-13-2024 End: 07-13-2024 Patient encounter procedure 07/13/2024 1:00 PM EDT Appointment Gastroenterology [address] [id number] Kasey Fallon MD [facility] [address] [place] [address] Iron deficiency anemia due to chronic blood loss [D50.0] Gastroenterology Comment on above: Iron deficiency anemia due to chronic bl ood loss [D50.0] Start: 04-30-2024 End: 04-30-2024 Patient encounter procedure [facility] Comment on above: Arrived Start: 04-16-2024 End: 04-16-2024 Patient encounter procedure 04/16/2024 10:30 AM EST Office Visit [facility] [address] [place] [address] Madison Burns, DO [address] [place] [address] Encounter for gynecological examination without abnormal finding; Screening for malignant neoplasm of cervix; Encounter for screening mammogram for breast cancer; [facility]hen [facility] Comment on above: Encounter for gynecological examination without abnormal finding; Screening for malignant neoplasm of cervix; Encounter for screening mammogram for breast cancer; Lichen sclerosus et atrophicus Start: 04-08-2024 End: 04-08-2024 Patient encounter procedure 04/08/2024 9:45 AM EST Office Visit [facility] [address] [place] [address] Madison Burns, DO [address] [place] [address] [facility] Start: 03-18-2024 Advance Directive Discussion Advance Directive Discussion [facility] Start: 02-06-2024 Screening for malignant neoplasm of breast Mammogram [facility] Start: 01-29-2024 End: 01-29-2024 Patient encounter procedure 01/29/2024 8:15 AM EST Office Visit [facility] [address] [place] [phone] Marsha Lal, DO [address] [place] [address] [facility] Start: 01-20-2024 End: 01-20-2024 Patient encounter procedure 01/20/2024 8:15 AM EST Office Visit [facility] [address] [place] [phone] Marsha Lal, DO [address] [place] [address] [facility] Start: 12-30-2023 End: 12-30-2023 Patient encounter procedure 12/30/2023 9:20 AM EDT Office Visit [facility] [address] [place] [address] Charito Vaqsuez MD [address] [place] [address] Arrived [facility] Comment on above: Arrived Start: 12-27-2023 End: 12-27-2023 Patient encounter procedure 12/27/2023 4:30 PM EDT Office Visit Gastroenterology [address] [phone] Kasey Fallon MD [facility] [address] [address] New Patient consult 30min- [facility] Comment on above: New Patient consult 30min- Double Balloo n Start: 12-27-2023 End: 12-27-2023 Patient encounter procedure 12/27/2023 9:40 AM EDT Appointment Radiology [address] [phone] 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] Radiology Comment on above: Other partial intestinal obstruction (HC C) [K56.690] Start: 11-17-2023 Covid-19 Vaccine ( season) Covid-19 Vaccine ( season) [facility] Start: 11-17-2023 Covid-19 Vaccine ( season) Covid-19 Vaccine ( season) [facility] Start: 11-17-2023 Influenza vaccination Influenza Vaccine (#1) [facility] Start: 10-31-2023 End: 01-30-2024 CREATININE BLD CREATININE BLD Lab Routine Other partial intestinal obstruction (HCC) Expected: 10/31/2023, Expires: 01/30/2024 [facility] Comment on above: Expected: 10/31/2023, Expires: Start: 10-08-2023 End: 10-08-2023 Patient encounter procedure 10/08/2023 9:45 AM EDT Office Visit [address] [place] [address] [place] [address] Sathya Mccann Department of Otolaryngology [phone] [facility] Start: 06-15-2023 COVID-19 Vaccine ( season) COVID-19 Vaccine () [facility] Start: 04-22-2023 End: 04-22-2023 Patient encounter procedure 04/22/2023 11:00 AM EST Office Visit [facility] [address] [place] [address] Charito Vasquez MD [address] [place] [address] Arrived [facility] Comment on above: Arrived Start: 03-18-2023 Advance Directive Discussion Advance Directive Discussion [facility] Start: 02-02-2023 Screening for malignant neoplasm of breast Mammogram Screening [facility] Start: 11-16-2022 Covid-19 Vaccine ( season) Covid-19 Vaccine () [facility] Start: 07-16-2017 Medicare Annual Wellness Visit Medicare Annual Wellness Visit [facility] Start: 2012 RSV Vaccine (1 - 1-dose 60+ series) RSV Vaccine (1 - 1-dose 60+ series) [facility] Start: 2002 Shingrix Vaccine (1 of 2) Shingrix Vaccine (1 of 2) [facility] Start: 2002 Zoster Vaccines (1 of 2) Zoster Vaccines (1 of 2) [facility] Start: 1997 Diabetes Screening Diabetes Screening [facility] Start: 1997 Lipid panel Lipid Screening [facility] Start: 1997 Screening for malignant neoplasm of colon [facility] Start: 1974 DTaP/Tdap/Td Vaccines (1 - Tdap) DTaP/Tdap/Td Vaccines (1 - Tdap) [facility] Start: 07-27-1971 Urine microalbumin profile DTaP,Tdap,Td Vaccine (1 - Tdap) [facility] Start: 1970 Anxiety Screening Anxiety Screening [facility] Start: 1970 Depression Screening Depression Screening [facility] Start: 1970 Hepatitis C screening Hepatitis C Screening [facility] Start: 1952 Lipid panel Lipid Panel [facility] Start: 1952 Medicare Annual Wellness Visit Medicare Annual Wellness Visit (AWV) [facility] Start: 1952 Screening for malignant neoplasm of colon [facility] Start: 1952 Thyroid stimulating hormone measurement TSH Level [facility] End: 11-29-2024 CT Small bowel W contrast PO and W contrast IV CT ENTEROGRAPHY W IVCON Radiology Routine Other partial intestinal obstruction (HCC) 1 Occurrences starting 10/31/2023 until 11/29/2024 [facility] Work Phone: Comment on above: 1 Occurrences starting 10/31/2023 until 11/29/2024 DBT Breast - bilateral screening Bilateral screening mammogram with tomosynthesis Imaging Routine Encounter for screening mammogram for breast cancer Ordered: 04/16/2024 [facility] Comment on above: Ordered: 04/16/2024 DXA Skeletal system Views for bone density DEXA bone density Imaging Routine Screening for osteoporosis Postmenopausal status, age-related Ordered: 04/16/2024 [facility] Comment on above: Ordered: 04/16/2024 End: 12-26-2024 ENTEROSCOPY ENTEROSCOPY Endoscopy Routine Iron deficiency anemia due to chronic blood loss Abnormal finding on GI tract imaging 1 Occurrences starting 12/27/2023 until 12/26/2024 [facility] Work Phone: Comment on above: 1 Occurrences starting 12/27/2023 until 12/26/2024 IGP, RFX APTIMA HPV ASCU IGP, RFX APTIMA HPV ASCU Lab Routine Screening for malignant neoplasm of cervix Ordered: 04/16/2024 [facility] Work Phone: Comment on above: Ordered: 04/16/2024 Tissue Pathology biopsy report [facility] Work Phone: Comment on above: Release Upon Ordering for 1 Occurrences starting 07/13/2024, 1 completed Immunizations Immunization Date Immunization Notes Care Provider Fa cility 01-13-2024 influenza virus vaccine, unspecified formulation Del Nettles [facility] 12-31-2022 Flu Shot - Documentation Purposes Only Andrea Golden Other [facility] 12-31-2022 influenza virus vaccine, unspecified formulation Asuncion Dewayne [facility] 12-31-2022 respiratory syncytia l virus (RSV) vaccine, adjuvanted (AREXVY) Kasey Fallon MD Work Phone: [facility] 12-22-2021 SARS-CoV-2 (COVID-19 ) [id number] Asuncion Anitabharati [facility] 12-18-2021 influenza (HD-IIV4) vaccine, age 65+ yr, high dose, quadrivalent, PF (FLUZONE HIGH-DOSE) Kasey Fallon MD Work Phone: [facility] 12-18-2021 influenza virus vaccine, split virus (incl. purified surface antigen) Shannan Webster Other [facility] Other 12-18-2021 influenza virus vaccine, unspecified formulation Asuncion Buchanan [facility] 07-04-2021 SARS-CoV-2 (COVID-19 ) mRNA-1273 vaccine Asuncion Buchanan [facility] 01-23-2021 SARS-CoV-2 (COVID-19 ) mRNA-1273 vaccine Asuncion Howarde [facility] 11-23-2020 influenza (aIIV4) vaccine, age 65+ yr, quadrivalent, PF (FLUAD QUAD) Kasey Fallon MD Work Phone: [facility] 11-23-2020 influenza virus vaccine, split virus (incl. purified surface antigen) Shannan Webster Other [facility] Other 11-23-2020 influenza virus vaccine, unspecified formulation Asuncion Lue [facility] 06-02-2020 SARS-CoV-2 (COVID-19 ) mRNA-1273 vaccine Asuncion Lue [facility] 05-05-2020 SARS-CoV-2 (COVID-19 ) mRNA-1273 vaccine Asuncion Lue [facility] 03-18-2020 SARS-CoV-2 (COVID-19 ) mRNA-1273 vaccine Asuncion Lue [facility] Comment on above: Result Comment: 3 sh ots to date 12-07-2019 influenza virus vaccine, split virus (incl. purified surface antigen) Shannan Webster Other [facility] Other 12-07-2019 influenza virus vaccine, unspecified formulation Asuncion Lue [facility] 12-07-2019 influenza, injectabl e, quadrivalent, preservative free Kasey Fallon MD Work Phone: [facility] 01-05-2019 influenza virus vaccine, unspecified formulation Asuncion Lue [facility] 01-05-2019 Influenza, injectabl e, Madin [place] Canine Kidney, preservative free, quadrivalent Kasey Fallon MD Work Phone: [facility] 01-05-2019 pneumococcal polysaccharide vaccine, 23 valent Asuncionemmanuelle Buchanan [facility] 12-17-2018 influenza virus vaccine, unspecified formulation Asuncion Lue [facility] 12-19-2017 influenza virus vaccine, unspecified formulation Asuncion Lue [facility] 12-19-2017 Seasonal trivalent influenza vaccine, adjuvanted, preservative free Kasey Fallon MD Work Phone: [facility] 01-10-2017 influenza virus vaccine, split virus (incl. purified surface antigen) Shannan Webster Other [facility] Other 01-10-2017 influenza virus vaccine, unspecified formulation Asuncion Lue [facility] 01-10-2017 influenza, injectabl e, quadrivalent, preservative free Kasey Fallon MD Work Phone: [facility] 01-10-2017 pneumococcal conjuga te vaccine, 13 valent Asuncion Lue [facility] 01-04-2016 influenza virus vaccine, unspecified formulation Asuncion Lue [facility] 01-04-2016 influenza, seasonal, injectable, preservative free Kasey Fallon MD Work Phone: [facility] 01-04-2016 pneumococcal polysaccharide vaccine, 23 valent Asuncion Lue [facility] Payers Date Payer Category Payer Private Health Insurance [id number] 2018 Unknown [id number] 2017 Medicare [id number] 1959 Medicare [id number] 2.1 6.840.1.850973.19 1959 Unknown [id number] 2. 16.840.1.942228.19 1952 Unknown [id number] 2.16.840.1.963847.3.579.2.593 1952 Unknown [id number] 2.16.840.1.361825.3.579.2.593 1952 Unknown [id number] 2.16.840.1.493004.3.579.2.593 1952 Unknown [id number] 2.16.840.1.986668.3.579.2.593 1952 Unknown [id number] 2.16.840.1.660198.3.579.2.593 1952 Unknown [id number] 2.16.840.1.970120.3.579.2.593 1952 Unknown [id number] 2.16.840.1.594509.3.579.2.593 1952 Unknown [id number] 2.16.840.1.944654.3.579.2.593 1952 Unknown [id number] 2.16.840.1.473404.3.579.2.593 1952 Unknown [id number] 2.16.840.1.917258.3.579.2.593 1952 Unknown [id number] 2.16.840.1.005940.3.579.2.1244 1952 Unknown [id number] 2.16.840.1.074757.3.579.2.1245 1952 Unknown [id number] 2.16.840.1.002251.3.579.2.1243 1952 Unknown [id number] 2.16.840.1.988500.3.579.2. 1952 Unknown [id number] 2.16.840.1.190962.3.579.2. 1952 Unknown [id number] 2.16.840.1.682850.3.579.2. 1952 Unknown [id number] 2.16.840.1.410733.3.579.2. 1952 Unknown [id number] 2.16.840.1.792172.3.579.2 1952 Unknown [id number] 2.16.840.1.309331.3.579.2 1952 Unknown [id number] 2.16.840.1.809647.3.579.2 1952 Unknown [id number] 2.16.840.1.588939.3.579.2 1952 Unknown [id number] 2.16.840.1.480197.3.579.2 1952 Unknown [id number] 2.16.840.1.737764.3.579.2 1952 Unknown [id number] 2.16.840.1.941782.3.579.2 1952 Unknown [id number] 2.16.840.1.010815.3.579.2. 1952 Unknown [id number] 2.16.840.1.427782.3.579.2. 1952 Unknown [id number] 2.16.840.1.620148.3.579.2. 1952 Unknown [id number] 2.16.840.1.809290.3.579.2 1952 Unknown [id number] 2.16.840.1.089837.3.579.2.72 1952 Unknown [id number] 2.16.840.1.201688.3.579.2. 1952 Unknown [id number] 2.16.840.1.073066.3.579.2. 1952 Unknown [id number] 2.16.840.1.311943.3.579.2.1258 1952 Unknown [id number] 2.16.840.1.860660.3.579.2.1258 1952 Unknown [id number] 2.16.840.1.100396.3.579.2.1258 1952 Unknown [id number] 2.16.840.1.758389.3.579.2.1258 1952 Unknown [id number] 2.16.840.1.801935.3.579.2.1258 1952 Unknown [id number] 2.16.840.1.421693.3.579.2.1258 1952 Unknown [id number] 2.16.840.1.409711.3.579.2.1258 1952 Unknown [id number] 2.16.840.1.954712.3.579.2.1258 1952 Unknown [id number] 2.16.840.1.607655.3.579.2.1258 1952 Unknown [id number] 2.16.840.1.334730.3.579.2.1258 1952 Unknown [id number] 2.16.840.1.718281.3.579.2.1258 1952 Unknown [id number] 2.16.840.1.979593.3.579.2.727 1952 Unknown [id number] 2.16.840.1.864285.3.579.2.72 1952 Unknown [id number] 2.16.840.1.503571.3.579.2.727 1952 Unknown [id number] 2.16.840.1.739725.3.579.2.727 1952 Unknown [id number] 2.16.840.1.014977.3.579.2.727 Self-pay Self Pay [id number] Unknown [employer]/BS [id number] Social History Date Type Detail Facility Unknown if ever smoked [facility] Other Start: 03-07-2023 End: 04-30-2024 Sex Assigned At [employer] [facility] [email or web address] Other Start: 11-11-2018 End: 12-10-2024 Tobacco smoking status NHIS Never smoked tobacco (finding) [facility] Start: 1950 Sex Assigned At Female [facility] Tobacco smoking status Never [facility] Start: 03-07-2023 End: 12-27-2023 Tobacco use and exposure Smokeless tobacco non-user [facility] Start: 03-07-2023 End: 04-30-2024 Alcohol intake Lifetime non-drinker (finding) [facility] Start: 03-07-2023 End: 04-30-2024 History of Social function [facility] Start: 03-05-2023 Alcohol Comment Caffeine : soda [facility] Start: 08-28-2022 Gender identity Identifies as female gender (finding) [facility] Start: 12-08-2007 End: 07-13-2024 Alcohol intake Current non-drinker of alcohol (finding) [facility] Start: 1950 Sex Assigned At Not on file [facility] Work Phone: Start: 02-05-2024 Sex Female (finding) [facility] Start: 09-04-2023 End: 09-14-2023 Exposure to SARS-CoV-2 (event) Not sure [facility] Sexual Orientation [facility] Medical Equipment Procedure Code Equipment Code Equipment Origin al Text Equipment Identifier Dates Arthroscopy, shoulder ANCHOR SUTURE FT III 5.5X16.3M FDA Start: 11-11-2018 Arthroscopy, shoulder ANCHOR SUTURE FT III 5.5X16.3M FDA Start: 11-11-2018 Arthroscopy, shoulder ANCHOR SUTURE FT III 5.5X16.3M FDA Start: 11-11-2018 Arthroscopy, shoulder ANCHOR SUTURE FT III 5.5X16.3M FDA Start: 11-11-2018 Arthroscopy, shoulder ANCHOR SUTURE FT III 5.5X16.3M FDA Start: 11-11-2018 CYSTOSCOPY Asuncion Watts 06/02/24 Unknown Urethra FDA Start: 06-02-2024 CYSTOSCOPY Asuncion Watts 06/02/24 Unknown Urethra FDA Start: 06-02-2024 CYSTOSCOPY Asuncion Watts 06/02/24 Unknown Urethra FDA Start: 06-02-2024 Functional Status Date Assessment Result Facility 08-05-2024 Functional Status N/A [facility] 05-20-2024 Functional Status No [facility] 04-22-2024 Functional Status N/A [facility] 03-24-2024 Functional Status No [facility] 02-24-2024 Functional Status N/A [facility] 02-05-2024 Functional Status N/A [facility] 08-15-2023 Functional Status N/A [facility] 05-30-2023 Functional Status N/A [facility] 05-22-2023 Functional Status N/A [facility] 05-14-2023 Functional Status N/A [facility] 02-20-2023 Functional Status N/A [facility] 12-01-2021 Functional Status N/A [facility] Clinical Notes 10-10-2021 to 10-30-2024 Telephone Encounter - Alycia Alberts - 10/30/2024 1:40 PM EDTTelephone Encounter - Alycia Alberts - 10/30/2024 1:40 PM EDTTelephone Encounter - Marci Alberts MD - 10/30/2024 12:44 PM EDT Note Date & Type Note Facility 10-30-2024 Telephone encounter Note Left message for pt to call office back to schedule appt with Dr Alberts. [facility] 10-30-2024 Miscellaneous Notes Left message for pt to call office back to schedule appt with Dr Alberts. Not seen in over a year. Needs appt or can get from PCP or OTC Pt called requesting a refill of Zyrtec called in to [facility] in [place]. She asked for the 90 day with 3 refills. Her call back [phone] documented in this encounter [facility] 10-30-2024 Telephone encounter Note Not seen in over a year. Needs appt or can get from PCP or OTC [facility] 10-29-2024 Telephone encounter Note Pt called requesting a refill of Zyrtec called in to [facility] in [place]. She asked for the 90 day with 3 refills. Her call back [phone] [facility] 07-13-2024 Nurse Note AMBULATORY PATIENT EDUCATION NOTE TOPIC: GI PROCEDURES: Enteroscopy READINESS TO LEARN INSTRUCTION PROVIDED TO: Patient and family member COGNITIVE ABILITY: Alert and oriented PTED MOTIVATION TO LEARN: Eager Interested FAMILY SUPPORT: Moderate - Family present but overwhelmed IPATIENT LEARNS BEST BY: Individual Instruction Written Instruction - Hand-outs Verbal Instruction FACTORS AFFECTING LEARNING: None PHYSICAL LIMITATIONS AFFECTING LEARNING: None LEARNING RESPONSE METHOD OF INSTRUCTION: Individual instruction PATIENT / FAMILY RESPONSE: Verbalizes understanding of: WORSENING CONDITION-Signs and symptoms of a worsening condition that warrant a call to the physician FOLLOW-UP PLAN: Patient instructed to call with any further issues Recommend - Recommend continued instruction and follow up as directed Contact information given. SUPPLEMENTAL MATERIAL: Procedure Discharge Instructions REFERRAL (RECOMMENDATION): None [facility] 07-13-2024 Nurse Note AMBULATORY PATIENT EDUCATION NOTE TOPIC: GI PROCEDURES: Enteroscopy READINESS TO LEARN INSTRUCTION PROVIDED TO: Patient and family member COGNITIVE ABILITY: Alert and oriented PTED MOTIVATION TO LEARN: Eager Interested FAMILY SUPPORT: Moderate - Family present but overwhelmed IPATIENT LEARNS BEST BY: Individual Instruction Written Instruction - Hand-outs Verbal Instruction FACTORS AFFECTING LEARNING: None PHYSICAL LIMITATIONS AFFECTING LEARNING: None LEARNING RESPONSE METHOD OF INSTRUCTION: Individual instruction PATIENT / FAMILY RESPONSE: Verbalizes understanding of: WORSENING CONDITION-Signs and symptoms of a worsening condition that warrant a call to the physician FOLLOW-UP PLAN: Patient instructed to call with any further issues Recommend - Recommend continued instruction and follow up as directed Contact information given. SUPPLEMENTAL MATERIAL: Procedure Discharge Instructions REFERRAL (RECOMMENDATION): None Electronically Signed By: Linda Alvarado, RN PRE OP LEARNING ASSESSMENT PROCEDURE/SURGERY: GI PROCEDURES: Colonoscopy READINESS TO LEARN COGNITIVE ABILITY: Alert and oriented MOTIVATION TO LEARN: Eager FAMILY SUPPORT: High - Very involved in pt care PATIENT LEARNS BEST BY: Individual Instruction FACTORS AFFECTING LEARNING: None PHYSICAL LIMITATIONS AFFECTING LEARNING: None Electronically Signed By: Mary Callejas RN In Department: GASTROENTEROLOGY documented in this encounter [facility] 07-13-2024 Note Q3 Patient Name: Munira Chester Procedure Date: 07/13/2024 12:36 PM Date of : 1950 Admit Type: Outpatient Age: 73 Gender: Female Note Status: Finalized Attending MD: Kasey Fallon MD, [id number] Procedure: Lower Device-Assisted Enteroscopy without Fluoroscopy Indications: [...] histology or the strictures that were not (more content not included)... [facility] 07-13-2024 Note HNO ID: [id number] Author: ROSAURA MARIE APRN.CHAIN SAW OPERATOR Service: ? Author Type: Nurse Manager Language Type: Anesthesia Procedure Notes Filed: 07/13/2024 13:59 Note Text: ANESTHESIOLOGY PROCEDURE NOTE Airway General Information Procedure Start Time/Medication Administration: 07/13/2024 1:47 PM Procedure End Time: 07/13/2024 1:58 PM Patient location during procedure: OR Timeout Performed Pre-procedure: timeout performed Consent Obtained: Yes Patient identity confirmed: arm band and patient Staffing CHAIN SAW OPERATOR: Rosaura Marie APRN.CHAIN SAW OPERATOR Performed by: CHAIN SAW OPERATOR Indications and Patient Condition Indications for airway [...] attempts at approach: 1 Airway not difficult SIGNATURE: Rosaura Marie APRN.CRNA PATIENT NAME: Munira Chester DATE: July 13, 2024 TIME: 1:58 PM CSN: [id number] [facility] 07-13-2024 History and physical note GI PROCEDURAL HISTORY AND PHYSICAL EXAM PLANNED PROCEDURE Rectal DBE ASSESSMENT Distal ileal strictures SUBJECTIVE HPI: This is a 73 year old female who presents with Hx of NSAID dependence and iron deficiency. Now with SBO symptoms. Capsule study showing ileal strictures and very slow distal small bowel transit on small bowel series Last oral intake: No solids within 8 hours. No clear liquids within 2 hours. PAST ANESTHESIA HISTORY: No history of adverse anesthesia event PAST MEDICAL HISTORY: PAST MEDICAL HISTORY Diagnosis Date Asthma (HCC) Degeneration of cervical intervertebral disc Esophageal reflux Other forms of migraine Toxic diffuse goiter without mention of thyrotoxic crisis or storm Ulcerative colitis, unspecified Unspecified essential hypertension PAST SURGICAL HISTORY: History reviewed. No pertinent surgical history. CURRENT MEDICATIONS: Prior to Admission medications as of 07/13/24 1248 Medication Sig Last Dose Taking amLODIPine (NORVASC) 5 mg tablet Take by mouth once daily. Cetirizine 10 mg cap Take by mouth. famotidine (PEPCID) 20 mg tablet Take 20 mg by mouth two times a day. iron polysaccharide complex (FERREX 150 ORAL) Take by mouth every other day. codeine phosphate/guaifenesin (CODEINE-GUAIFENESIN ORAL) Take by mouth. pantoprazole DR (PROTONIX) 40 mg tablet Take 40 mg by mouth two times a day. fluticasone propionate (XHANCE) 93 mcg/actuation nasal spray Use in each nostril two times a day. nitrofurantoin macrocrystal (MACRODANTIN) 100 mg capsule 100 mg by ORAL/FEEDING TUBE route. betamethasone valerate 0.1 % cream Apply to affected area. cholecalciferol, vitamin D3, (D3-2000 ORAL) Take by mouth. calcium carbonate/vitamin D3 (CALCIUM + D ORAL) Take by mouth. iron bis-glycinat/vit C/FA/B12 (GENTLE IRON ORAL) Take by mouth. mv-min/iron/folic/calcium/vitK (WOMEN'S MULTIVITAMIN ORAL) Take by mouth. vit A/vit C/biotin/zinc/copper (CBGT-BOIB-FWSL,VIT A,C-BIOTIN, ORAL) Take by mouth. aspirin 325 mg cap Take by mouth. Ibuprofen 200 mg cap Take by mouth every 6 hours as needed. acetaminophen (TYLENOL) 325 mg tablet Take 650 mg by mouth every 6 hours as needed. peg 3350-Electrolytes (GOLYTELY) 236-22.74-6.74 -5.86 gram suspension Add water to powder in the jug up to the fill line. Starting at 6pm the evening before the colonsocopy, drink 8 oz every 15 minutes until half to three quarters of the jug is consumed AND returns are clear. Take a break. Finish the remainder of the jug 4 hours before your procedure. fluticasone-vilanterol (BREO ELLIPTA) 100-25 mcg/dose inhaler Inhale 1 Inhalation as instructed once daily. EPINEPHrine (EPIPEN) 0.3 mg/0.3 mL auto-injector Inject 0.3 mg intramuscularly as needed. fluticasone (FLONASE) 50 mcg/actuation nasal spray Use 1 [place] in each nostril once daily. atorvastatin (LIPITOR) 10 mg tablet Take 10 mg by mouth once daily. albuterol HFA (PROAIR HFA) 90 mcg/actuation inhaler Inhale 2 Puffs as instructed. montelukast (SINGULAIR) 10 mg tablet Take 10 mg by mouth daily at bedtime. alendronate (FOSAMAX) 70 mg tablet Take 70 mg by mouth once each week. metroNIDAZOLE (METROGEL) 0.75 % Vaginal Gel Use 1 Applicatorful vaginally daily at bedtime. Estradiol (VAGIFEM) 10 mcg tab vaginal tablet Use 10 mcg vaginally once daily. orphenadrine ER (NORFLEX) 100 mg tablet Two tablets daily as needed levothyroxine sodium(SYNTHROID 100 MCG TAB) Take one(1) tablet daily. ALLERGIES: ALLERGIES Allergen Reactions Amoxicillin Other: See Comments Contrast Dye Sulfa (Sulfonamide * OBJECTIVE PHYSICAL EXAM: BP: 136/63 Temp: 36.3 C (97.3 F) Temp src: Temporal Pulse: 69 Resp: 18 O2 Therapy: Room Air SpO2: 97 % AIRWAY: Patent, Full neck flexion and extension, Mallampati 1. LUNGS: Normal respiratory effort CARDIAC: PPP, normal HS, no murmur ABDOMEN: Soft, non-tender, no masses SIGNATURE: Kasey Fallon MD PATIENT NAME: Munira Chester DATE: 07/13/2024 TIME: 1345 [facility] 07-13-2024 History and physical note GI PROCEDURAL HISTORY AND PHYSICAL EXAM PLANNED PROCEDURE Rectal DBE ASSESSMENT Distal ileal strictures SUBJECTIVE HPI: This is a 73 year old female who presents with Hx of NSAID dependence and iron deficiency. Now with SBO symptoms. Capsule study showing ileal strictures and very slow distal small bowel transit on small bowel series Last oral intake: No solids within 8 hours. No clear liquids within 2 hours. PAST ANESTHESIA HISTORY: No history of adverse anesthesia event PAST MEDICAL HISTORY: PAST MEDICAL HISTORY Diagnosis Date Asthma (HCC) Degeneration of cervical intervertebral disc Esophageal reflux Other forms of migraine Toxic diffuse goiter without mention of thyrotoxic crisis or storm Ulcerative colitis, unspecified Unspecified essential hypertension PAST SURGICAL HISTORY: History reviewed. No pertinent surgical history. CURRENT MEDICATIONS: Prior to Admission medications as of 07/13/24 1248 Medication Sig Last Dose Taking amLODIPine (NORVASC) 5 mg tablet Take by mouth once daily. Cetirizine 10 mg cap Take by mouth. famotidine (PEPCID) 20 mg tablet Take 20 mg by mouth two times a day. iron polysaccharide complex (FERREX 150 ORAL) Take by mouth every other day. codeine phosphate/guaifenesin (CODEINE-GUAIFENESIN ORAL) Take by mouth. pantoprazole DR (PROTONIX) 40 mg tablet Take 40 mg by mouth two times a day. fluticasone propionate (XHANCE) 93 mcg/actuation nasal spray Use in each nostril two times a day. nitrofurantoin macrocrystal (MACRODANTIN) 100 mg capsule 100 mg by ORAL/FEEDING TUBE route. betamethasone valerate 0.1 % cream Apply to affected area. cholecalciferol, vitamin D3, (D3-2000 ORAL) Take by mouth. calcium carbonate/vitamin D3 (CALCIUM + D ORAL) Take by mouth. iron bis-glycinat/vit C/FA/B12 (GENTLE IRON ORAL) Take by mouth. mv-min/iron/folic/calcium/vitK (WOMEN'S MULTIVITAMIN ORAL) Take by mouth. vit A/vit C/biotin/zinc/copper (JGUA-IEKE-WGVZ,VIT A,C-BIOTIN, ORAL) Take by mouth. aspirin 325 mg cap Take by mouth. Ibuprofen 200 mg cap Take by mouth every 6 hours as needed. acetaminophen (TYLENOL) 325 mg tablet Take 650 mg by mouth every 6 hours as needed. peg 3350-Electrolytes (GOLYTELY) 236-22.74-6.74 -5.86 gram suspension Add water to powder in the jug up to the fill line. Starting at 6pm the evening before the colonsocopy, drink 8 oz every 15 minutes until half to three quarters of the jug is consumed AND returns are clear. Take a break. Finish the remainder of the jug 4 hours before your procedure. fluticasone-vilanterol (BREO ELLIPTA) 100-25 mcg/dose inhaler Inhale 1 Inhalation as instructed once daily. EPINEPHrine (EPIPEN) 0.3 mg/0.3 mL auto-injector Inject 0.3 mg intramuscularly as needed. fluticasone (FLONASE) 50 mcg/actuation nasal spray Use 1 [place] in each nostril once daily. atorvastatin (LIPITOR) 10 mg tablet Take 10 mg by mouth once daily. albuterol HFA (PROAIR HFA) 90 mcg/actuation inhaler Inhale 2 Puffs as instructed. montelukast (SINGULAIR) 10 mg tablet Take 10 mg by mouth daily at bedtime. alendronate (FOSAMAX) 70 mg tablet Take 70 mg by mouth once each week. metroNIDAZOLE (METROGEL) 0.75 % Vaginal Gel Use 1 Applicatorful vaginally daily at bedtime. Estradiol (VAGIFEM) 10 mcg tab vaginal tablet Use 10 mcg vaginally once daily. orphenadrine ER (NORFLEX) 100 mg tablet Two tablets daily as needed levothyroxine sodium(SYNTHROID 100 MCG TAB) Take one(1) tablet daily. ALLERGIES: ALLERGIES Allergen Reactions Amoxicillin Other: See Comments Contrast Dye Sulfa (Sulfonamide * OBJECTIVE PHYSICAL EXAM: BP: 136/63 Temp: 36.3 C (97.3 F) Temp src: Temporal Pulse: 69 Resp: 18 O2 Therapy: Room Air SpO2: 97 % AIRWAY: Patent, Full neck flexion and extension, Mallampati 1. LUNGS: Normal respiratory effort CARDIAC: PPP, normal HS, no murmur ABDOMEN: Soft, non-tender, no masses SIGNATURE: Kasey Fallon MD PATIENT NAME: Munira Chester DATE: 07/13/2024 TIME: 1345 documented in this encounter [facility] 07-13-2024 Nurse Note PRE OP LEARNING ASSESSMENT PROCEDURE/SURGERY: GI PROCEDURES: Colonoscopy READINESS TO LEARN COGNITIVE ABILITY: Alert and oriented MOTIVATION TO LEARN: Eager FAMILY SUPPORT: High - Very involved in pt care PATIENT LEARNS BEST BY: Individual Instruction FACTORS AFFECTING LEARNING: None PHYSICAL LIMITATIONS AFFECTING LEARNING: None Electronically Signed By: Mary Callejas RN In Department: GASTROENTEROLOGY [facility] 07-13-2024 Note Q3 Patient Name: Munira Chester Procedure Date: 07/13/2024 12:36 PM Date of : 1950 Admit Type: Outpatient Age: 73 Gender: Female Note Status: Finalized Attending MD: Kasey Fallon MD, [id number] Procedure: Lower Device-Assisted Enteroscopy without Fluoroscopy Indications: [...] pathology results. Procedure Code(s): --- Professional --- (more content not included)... [facility] 07-08-2024 Note Patient Education Urology Urinary Incontinence Urinary [...] nerve stimulation). ? For women, using a dental assistant medical assistant to prevent urine leaks. This is a [...] health care provider (more content not included)... [facility] 07-06-2024 Nurse Note Attempted to reach the patient at the contact number that they provided [phone] (home) [phone] (work) . Unable to speak with patient so without identifying the patient the following information was left on their voice mail: Date of procedure, location and report time Prep instructions A message was left informing the patient/patient sales representative metals they must have a responsible adult accompany them to their procedure; and remain in the endoscopy area until they are discharged. Failure to have a responsible adult accompany the patient to their procedure appointment prevents the use of sedation or anesthesia for their procedure; and can result in cancellation of the procedure NPO instructions were reviewed. Clear liquids the day before the procedure, stop all liquids 4 hours before the procedure Instructions to contact their primary care provider regarding their medications and which medications to stop in preparation for their procedure Instructions to completely read and follow the written instructions that they recieved regarding their procedure. Number to call with questions or concerns [phone] Number to call to cancel their procedure [phone] Noemí William RN [facility] 07-06-2024 Nurse Note Attempted to reach the patient at the contact number that they provided [phone] (home) [phone] (work) . Unable to speak with patient so without identifying the patient the following information was left on their voice mail: Date of procedure, location and report time Prep instructions A message was left informing the patient/patient sales representative metals they must have a responsible adult accompany them to their procedure; and remain in the endoscopy area until they are discharged. Failure to have a responsible adult accompany the patient to their procedure appointment prevents the use of sedation or anesthesia for their procedure; and can result in cancellation of the procedure NPO instructions were reviewed. Clear liquids the day before the procedure, stop all liquids 4 hours before the procedure Instructions to contact their primary care provider regarding their medications and which medications to stop in preparation for their procedure Instructions to completely read and follow the written instructions that they recieved regarding their procedure. Number to call with questions or concerns [phone] Number to call to cancel their procedure [phone] Noemí William RN documented in this encounter [facility] 07-01-2024 Telephone encounter Note Prep question unable to take Gatorade / Message sent to referring [facility] 07-01-2024 Miscellaneous Notes Prep question unable to take Gatorade / Message sent to referring documented in this encounter [facility] 06-04-2024 Note Progress Note-Physic starla Patient: MUNIRA CHESTER Age: 73 years Sex: Female : 1950 Associated Diagnoses: None Author: Jay Jay Valderrama Jr, DO Preoperative Information Anesthesia Preop Info: Time patient last ate or drank 06/02/2024 00:00:00. Anesthesia history: Patient history: None. Family [...] - shortness of breath. Sulfa drugs- Angio-oedema. 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 / Confirmed Recurrent UTI / SNOMED CT 081643270 / Confirmed Osteopenia of lumbar spine / SNOMED CT 239064990 / Confirmed Nocturia / SNOMED CT 786928598 / Confirmed Mild persistent asthma / SNOMED CT 7355297266 / Confirmed Migraine / SNOMED CT 31301739 / Confirmed Microscopic hematuria / SNOMED CT 556441458 / Confirmed Lumbar spondylosis / SNOMED CT 190461392 / Confirmed Urethral lesion / SNOMED CT 3306266661 / Confirmed Mixed incontinence / SNOMED CT 96516169 / Confirmed Hypertension / SNOMED CT 9957024199 / Confirmed Hyperlipidemia / SNOMED CT 36903767 / Confirmed Personal history of colonic polyps / SNOMED CT 0886430515 / Confirmed History of gastric ulcer / SNOMED CT 644019959 / Confirmed H/O gastric ulcer / SNOMED CT 005182575 / Confirmed Graves disease / SNOMED CT 079236568 / Confirmed GERD (gastroesophageal reflux disease) / SNOMED CT 669455605 / Confirmed Incomplete bladder emptying / SNOMED CT 565667984 / Confirmed Epigastric pain / SNOMED CT 685951845 / Confirmed Chronic tension headache / SNOMED CT 784344293 / Confirmed Cervical spondylosis / SNOMED CT 7143689382 / Confirmed Bilateral cataracts / SNOMED CT 987961189 / Confirmed Benign essential hypertension / SNOMED CT 2736726 / Confirmed Hypothyroidism, acquired, autoimmune / SNOMED CT 745794569 / Confirmed Asymptomatic microscopic hematuria / SNOMED CT 4780456181 / Confirmed Asthma / SNOMED CT 778919318 / Confirmed Arthritis / SNOMED CT 9528172 / Confirmed Acute allergic rhinitis due to pollen / SNOMED CT 50190308 / Confirmed Abdominal bloating / SNOMED CT 631386149 / Confirmed Resolved: Reflux of urine / SNOMED CT 9595079792 Histories Procedure history: Cystoscopy, urethral biopsy ([id number]) on 04/07/2024 at 73 Years. Esophagogastroduodenoscopy (337254282) on 05/22/2023 at 72 Years. Colonoscopy ([id number]) on 05/22/2023 at 72 Years. Colonoscopy ([id number]) on 09/07/2019 at 69 Years. EGD - Esophagogastroduodenoscopy (4251212163) on 09/07/2019 at 69 Years. EGD - Esophagogastroduodenoscopy (9707478085) on 01/16/2015 at 64 Years. Colonoscopy ([id number]) on 01/16/2015 at 64 Years. Comments: 08/31/2019 16:19 EDT - Tonie Barragan LPN normal EGD - Esophagogastroduodenoscopy (9195068447) on 08/17/2011 at 61 Years. EGD - Esophagogastroduodenoscopy (7649254806) on 05/17/2011 at 60 Years. Laparoscopic cholecystectomy (12834381) on 06/16/2010 at 59 Years. Colonoscopy ([id number]) on 01/16/2010 at 59 Years. section (28108596). Rotator cuff repair (117450754). Tubal ligation (487901560). Cataracts (3460661342). Foot (91449084). Dilation and curettage (34858697). Thyroidectomy (68787148). Right wrist surgery (65430745). Social History Social & Psychosocial Habits Alcohol 06/02/2024 Risk Assessment: Denies Alcohol Use Substance Abuse 06/02/2024 Risk Assessment: Denies Substance Abuse Tobacco 06/02/2024 Tobacco Use: Never (less than 100 in l 06/02/2024 Tobacco Use: Never (less than 100 in l 06/02/2024 Tobacco Use: Never (less than 100 in l Smokeless tobacco use: Never Concerns about tobacco use in household: No . Physical Examination Airway: Mallampati classification: II (soft palate, fauces, uvula visible). Respiratory: adequate air exchange. Cardiovascular: Regular rhythm. Plan [place] [employer]esthesi[employer] (ASA) physical status classification: Class III. Anesthetic Preoperative (more content not included)... [facility] Comment on above: Result Comment: Elec tronically Signed By: Jay Jay Valderrama Jr, DO\.br\Date and Time Signed: 06/04/24 13:21 EDT 06-04-2024 Note Progress Note-Physic starla Patient: MUNIRA CHESTER Age: 73 years Sex: Female : 1950 Associated Diagnoses: None Author: Jay Jay Valderrama Jr, DO Postoperative Information Postoperative disposition: Postoperative disposition: To PACU. Optimetrix number: Optimetrix number [id number]. Anesthetic utilized: General. Health Status Allergies: Allergic Reactions (Selected) Severity Not Documented Amoxicillin- Rash. Bee Stings- Hives and sob - shortness of breath. Contrast media (iodine-based)- Hives and sob - shortness of breath. Sulfa drugs- Angio-oedema. Physical Examination Vital Signs 06/02/2024 10:08 EDT Heart Rate Monitored 75 bpm SpO2 97 % 06/02/2024 10:08 EDT Systolic Blood Pressure 130 mmHg Diastolic Blood Pressure 78 mmHg Mean Arterial Pressure, Monitered 95 mmHg 06/02/2024 9:13 EDT Heart Rate Monitored 73 bpm SpO2 95 % 06/02/2024 9:13 EDT Systolic Blood Pressure 110 mmHg Diastolic Blood Pressure 64 mmHg Mean Arterial Pressure, Monitered 79 mmHg 06/02/2024 9:03 EDT Temperature Temporal Artery 36.5 DegC Heart Rate Monitored 64 bpm Respiratory Rate Monitored 16 br/min Systolic Blood Pressure 110 mmHg Diastolic Blood Pressure 65 mmHg Blood Pressure Location Right arm Mean Arterial Pressure, Cuff 80 mmHg SpO2 96 % Pain Assessment: Controlled. General: Awake, Alert, [...] when meets criteria ( To home ). [facility] Comment on above: Result Comment: Elec tronically Signed By: Lavelle Logan DO, Jay Jay Springer\.br\Date and Time Signed: 06/04/24 13:19 EDT 06-02-2024 Evaluation + Plan note Extrac radha from: Title:[facility]- [facility] Author:Asuncion Buchanan MD Date: 06/02/24 Impression and Plan Diagnosis Intrinsic sphincter deficiency (ISD) (WSH60-QT N36.42, Discharge, Medical). Diagnosis Intrinsic sphincter deficiency (ISD) (VSN96-GP N36.42, Discharge, Medical). Future Appointments Appointment Date:07/08/2024 09:00:00 AM Scheduled Provider:Asuncion Buchanan MD Location:[facility] Appointment Type:URO Office Visit [facility] 03-18-2025 Hospital Discharge instructions Patient Education 06/02/2024 09:00:02 Post Op Patient Instructions - FT (CUSTOM) 06/02/2024 08:43:01 [facility] - [facility] Post-Op Instructions (CUSTOM) [facility] [place], [place] Post-Operative Instructions for [facility] Congratulations on starting your journey towards symptom relief! Below you will find basic post-operative instructions. Activity and Lifestyle Instructions After your procedure, you may be allowed to return to normal non-strenuous activity. If you had sedation, you may be groggy, and your physician may encourage you to rest. You may resume intercourse. If you are on your menstrual cycle, you may use tampons. You can resume your normal exercise program 24 hours following the procedure if blood has cleared from your urine. If you engage in highly strenuous exercise such as CrossFit, you may want to wait 48-72 hours. You may feel discomfort or irritation to the bladder and urethra following the procedure. If this occurs, the discomfort should subside within 24 hours. Your physician may recommend a warm bath and/or an azrb-rmi-tbpvxal pain medication to reduce discomfort. If you had sedation your physician may recommend the following: oDo not drive for 24 hours or longer if you feel groggy. oDo not drink alcoholic beverages for 24 hours. Bladder It is normal to have blood in your urine for 24 hours after the procedure. Drink plenty of water to stay hydrated. Do not oneal or strain to urinate; relax your bladder and give it time to empty. Slow urinary stream for the first several days is not unusual. If you are unable to urinate, contact your physician. Contact your physician s office if you experience trouble urinating, heavy bleeding, fever greater than 100.8 degrees, chills, confusion, disorientation, severe abdominal pain, or any other unusual reaction. Once again, congratulations on beginning your journey towards symptom relief! In the following months, if you feel your symptom relief decrease inform your physician to explore further treatment options. This document is a sample for illustrative purposes only. It does not provide a complete list of all instructions patients should follow following their operation. Please consult your physician for acomplete list of instructions. 2020 [employer]. All rights reserved. This material contains registered trademarks, trade names, and brand names of [employer]. [id number] 02/2021 [email or web address] , [place] [address] [email or web address] Follow Up Care 04/22/2024 11:39:53 With:Asuncion Buchanan Address: [facility] Eder Mcc[address] [address] [phone] Business (1) When: Unknown Comments:Call to schedule your follow up in 1 month for [facility] 03-18-2025 NotePatient Education - Text [facility] [place], [place] Post-Operative Instructions for [facility] Congratulations on starting your journey towards symptom relief! Below you will find basic post-operative instructions. Activity and Lifestyle Instructions ??? After your procedure, you may be allowed to return to normal non-strenuous activity. If you hadsedation, you may be groggy, and your physician may encourage you to rest. ??? You may resume intercourse. ??? If you are on your menstrual cycle, you may use tampons. ??? You can resume your normal exercise program 24 hours following the procedure if blood has cleared from your urine. If you engage in highly strenuous exercise such as CrossFit, you may want to wait 48-72 hours. ??? You may feel discomfort or irritation to the bladder and urethra following the procedure. If this occurs, the discomfort should subside within 24 hours. Your physician may recommend a warm bath and/or an ckrv-nhb-jnfkapa pain medication to reduce discomfort. ??? If you had sedation your physician may recommend the following: o Do not drive for 24 hours or longer if you feel groggy. o Do not drink alcoholic beverages for 24 hours. Bladder ??? It is normal to have blood in your urine for 24 hours after the procedure. ??? Drink plenty of water to stay hydrated. ??? Do not oneal or strain to urinate; relax your bladder and give it time to empty. ??? Slow urinary stream for the first several days is not unusual. ??? If you are unable to urinate, contact your physician. Contact your physician???s office if you experience trouble urinating, heavy bleeding, fever greater than 100.8 degrees, chills, confusion, disorientation, severe abdominal pain, or any other unusualreaction. Once again, congratulations on beginning your journey towards symptom relief! In the following months, if you feel your symptom relief decrease inform your physician to explore further treatment options. This document is a sample for illustrative purposes only. It does not provide a complete list of all instructions patients should follow following their operation. Please consult your physician for acomplete list of instructions. ??? 2020 [employer]. All rights reserved. This material contains registered trademarks, trade names, and brand names of [employer]. [phone] 02/2021 [email or web address] , [place] [address] [email or web address] [facility]03-07-2025 Telephone encounter Note* Telephone Encounter - Hollis Mckeon RN - 05/22/2024 11:40 AM EST Pt called, asked for return call. Called pt and question is what approval, upper or lower approvch for the enteroscopy procedure in June, she thought lower, but was told upper and concerned if lower, needs specific bowel prep, does better with miralax. Hollis Mckeon RN [facility] Work Phone: [phone] 303-351703-07-2025 Miscellaneous Notes* Telephone Encounter - Hollis Mckeon RN - 05/22/2024 11:40 AM EST Pt called, asked for return call. Called pt and question is what approval, upper or lower approvch for the enteroscopy procedure in June, she thought lower, but was told upper and concerned if lower, needs specific bowel prep, does better with miralax. Hollis Mckeon RN documented in this encounterChildren'S Hospital [facility]02-13-2025 History of Present illness Narrative* Charito Vasquez MD - 04/30/2024 9:20 AM EST Munira Chester returns to the office today and notes that her cough has been very rare but she still has frequent sneeze. She is still on Xhance and this will be coming from [facility] soon. It will be800 USD per 3 months at [facility]. She has no wheeze or asthma symptoms. She feels that nasal lavage hasbeen very helpful for her symptoms. She uses [employer] sinus rinse kit. She has been on Xhance sinceAugust of 2023. She has not needed albuterol [...] would continue Xhance and gradually taper this astolerated. I also suggested she continue her nasal fluticasone as we agreed to taper her Xhance 1st. She will continue her nasal lavage and follow-up was arranged in 8 months for reassessment or sooner should problems arise. documented in this encounterSSM Health Cardinal Glennon Children's [id number] Hospital Discharge instructions Patient Education 04/22/2024 11:30:30 [...] a small amount, or constantly dribbling urine (overflowincontinence). Urinating because you cannot get to the [...] fiber include beans, whole grains, and fresh fruitsand vegetables. Behavioral changes, such as: ?Pelvic floor [...] (electrical nerve stimulation). ?For women, using a dental assistant medical assistant to prevent urine leaks. This is a small, tampon-like, disposabledevice that is inserted into the urethra. ?Injecting [...] right after experiencing incontinence. General instructions Take tsgk-joo-zhrafsy and prescription medicines only as told by [...] important. Where to find more information National [place] of Diabetes and Digestive and Kidney Diseases: www.niddk.nih.gov [place] [employer]: www.urologyhealth.org Contact a health care [...] age, obesity, and childbirth, menopause, neurological diseases, andchronic coughing may increase your risk for developing [...] provider. Document Revised: 10/07/2020 Document Reviewed: 10/07/2020 [employer] Patient Education 2023 [employer]. Follow Up Care 03/05/2024 08:53:11 With:Dewayne VILLEGAS, RANDAL Arizmendi, URO Address: When: Unknown [facility] [employer] 02-05-2025 NotePatient Education Urology Urinary Incontinence Urinary incontinence refers [...] move out of place and into the vagina.This movement can prevent the bladder and urethra [...] the bladder, urethra, and sphincter can store andrelease urine. There are different types of urodynamic [...] of moderate-intensity exercise every week. Ask your healthcare provider which activities are safe for you. [...] urges. This can include distraction techniques or controlledbreathing exercises. ??? Medicines, such as: ? Medicines to relax the bladder muscles and prevent bladder spasms. ? Medicines to help slow or prevent the growth of a man's prostate. ? Botox injections. These can help relax the bladder muscles. ??? Treatments, such as: ? Using pulses of electricity to help change bladder reflexes (electrical nerve stimulation). ? For women, using a dental assistant medical assistant to prevent urine leaks. This is a [...] your health care provider (more content not included)...[facility] 04-16-2024 History of Present illness Narrative* Madison Burns DO - 04/16/2024 10:30 AM EST Images from the original note [...] smear 02/02/22 wnl, Mammogram 02/03/24 wnl, DEXA 02/05/23 osteopenia @ [facility] Review of Systems - General: Chills denies. [...] Review Audit Reviewed by Renita Lucia MA (Air Crew Member) on 04/16/24 at 1057 Medication Order Taking? Sig Documenting Provider Last Dose Status albuterol HFA 90 mcg/act inhaler [id number] No Inhale 2 puffs Madison Burns, DO Taking Active amLODIPine (Norvasc) 5 MG tablet [id number] No Refills(s) 0 Madison Burns, DO Taking Active atorvastatin (Lipitor) 10 MG tablet [id number] No 1 (one) time each day at the same time Madison Burns DO Taking Active azelastine (Astelin) 0.1 % nasal spray [id number] No Administer 2 sprays into each nostril in the morning and 2 sprays before bedtime. Use in each nostril as directed. Charito Vasquez MD Taking Active betamethasone valerate (Valisone) 0.1 % cream [id number] APPLY TO THE AFFECTED AREA TWICE A DAY Madison Burns, Active betamethasone valerate (Valisone) 0.1 % ointment [id number] APPLY TO THE AFFECTED AREA EXTERNALLY TWOTIMES A DAY, REPLACES PREVIOUS SENT SCRIPT Madison Burns DO Active budesonide (Pulmicort) 0.5 MG/2ML nebulizer solution [id number] Take 2 mL (0.5 mg) by nebulization inthe morning. Rinse mouth with water after use to reduce aftertaste and incidence of candidiasis. Donot swallow.. Charito Vasquez MD Active cetirizine (ZyrTEC) 10 MG tablet [id number] Take 1 tablet (10 mg) by mouth Daily as needed for allergies Marci Alberts MD Active doxycycline (Adoxa) 100 MG tablet [id number] No Take 100 mg by mouth in the morning and 100 mg beforebedtime. Take with a full glass of water and do not lie down for at least 30 minutes after. Marci Alberts MD Taking Active EpiPen 2-Giovani 0.3 MG/0.3ML injection syringe [id number] No as directed Injection Juan Hutchison Active estradiol (Estrace) 0.1 MG/GM vaginal cream [id number] No See Instructions, 42.5 gm, Refill(s) 0, apply pea sized amount to urethra 2x/wk, [facility], 158, cm, 02/20/23 8:48:00 EST, Height/Length Dosing, 68.5, kg, 02/20/23 8:48:00 EST, Weight Dosing Madison Burns DO TakingActive famotidine (Pepcid) 20 MG tablet [id number] No Take by mouth Madison Burns DO Taking Active fluocinonide (Lidex) 0.05 % external solution [id number] No Apply to affected areas on the scalp, up to twice a day when flared, 30 day supply Ama Mclaughlin, JAELYN-JOSHUA Taking Active fluticasone (Flonase) 50 MCG/ACT nasal spray [id number] No Administer 2 sprays into each nostril Daily Shake gently. Before first use, prime pump. After use, clean tip and replace cap. Marci Alberts MD Taking Active Fluticasone Propionate (Xhance) 93 MCG/ACT Exhaler Suspension [id number] Administer 1 spray into affected nostril(s) in the morning and 1 spray before bedtime. Charito Vasquez MD Active Fosamax 70 MG tablet [id number] No 1 tablet 30 minutes before the first food, beverage or medicine ofthe day with plain water Orally for 30 day(s) Madison Burns DO Taking Active guaiFENesin-codeine (Robitussin-AC) 100-10 MG/5ML syrup [id number] No Take 5 mL by mouth 3 (three) times a day as needed Taking Active levothyroxine (Synthroid, Levoxyl) 88 MCG tablet [id number] No 1 (one) time each day at the same timeMadison Burns DO Taking Active loratadine-pseudoephedrine ER (Claritin-D 12-hour) 5-120 MG 12 hr tablet [id number] No Take 1 tablet by mouth in the morning and 1 tablet before bedtime. Do not crush, chew, or split.. Charito Vasquez MD Taking Active metoclopramide (Reglan) 10 MG tablet [id number] No Take 10 mg by mouth in the morning and 10 mg at noon and 10 mg in the evening and 10 mg before bedtime. Taking Active montelukast (Singulair) 10 MG tablet [id number] No 1 (one) time each day at the same time Madison Burns DO Taking Active pantoprazole (ProtoNix) 40 MG EC tablet [id number] Take 1 tablet (40 mg) by mouth in the morning and 1 tablet (40 mg) before bedtime. Do not crush, chew, or split.. Charito Vasquez MD Active predniSONE (Deltasone) 20 MG tablet [id number] No Take 20 mg by mouth Daily Taking Active RA Vitamin D-3 50 MCG (1999) capsule [id number] No Take 50 mcg by mouth in the morning. Madison Almonte DO Taking Active Past Medical History: Diagnosis Date Abnormal Pap smear of cervix Arthritis Aspiration into airway, initial encounter Asthma (CMS/HCC) Cataract Chronic hoarseness Episodic tension-type headache, not [...] to gross testing, coordination, and gait are normalor at baseline unless noted below. General Examination: [...] Z78.0 DEXA bone density documented in this encounterSSM Health Cardinal Glennon Children's HospitalGkzzoxqsbj71-80-5735 NoteProgress Note-Physician Patient: MUNIRA CHESTER Age: 73 years Sex: Female : 1950 Associated Diagnoses: None Author: MD Camacho Ahmad F Postoperative Information Postoperative disposition: Postoperative disposition: To PACU. Optimetrix number: Optimetrix number [id number]. Anesthetic utilized: General. Health Status Allergies: Allergic [...] Discharge when meets criteria ( To home ).[facility]edoComment on above:Result Comment: Electronically Signed By: MD Camacho Ahmad F\.br\Date and Time Signed: 04/07/24 17:50 EST 04-07-2024 NoteProgress Note-Physician Patient: MUNIRA CHESTER Age: 73 [...] day(s), # 2 tab(s), Refills(s) 0, Pharmacy: [facility], 158, cm, 03/24/24 11:38:00 EST, Height/Length Dosing, 75.5, kg, 03/24/24 11:38:00 EST, Weight Dosing... Macrobid 100 mg Cap: 100 mg = 1 cap(s), Oral, As Directed, take 1 tablet within 1 hour before or after intercourse to prevent infection., # 30 cap(s), Refills(s) 3, Pharmacy: [facility], 158, cm, 02/20/23 8:48:00 EST, Height/Length Dosing, 68.5, kg,... Pantoprazole [address] Tab: 40 mg = 1 tab(s), Oral, Daily, # 90 tab(s), Refills(s) 1, Pharmacy: [facility], 154.9, cm, 12/11/19 9:26:00 EDT, Height/Length Dosing, 70.2, kg, 12/11/19 9:26:00 EDT, Weight Dosing estradiol 0.1 mg/g Vag Crm: See Instructions, 42.5 gm, Refill(s) 0, apply pea sized amount to urethra 2x/wk, [facility], 158, cm, 02/05/24 11:08:00 EST, Height/Length Dosing, 62, kg, 02/05/24 11:08:00 EST, Weight Dosing oxybutynin 5 mg Tab: 5 mg = 1 tab(s), Oral, TID, PRN bladder spasms, # 30 tab(s), Refills(s) 0, Pharmacy: [facility], 158, cm, 03/24/24 11:38:00 EST, Height/Length [...] of stomach acid fluticasone 0.05 mg/inh Nasal [place]: 2 spray(s), Nasal, Daily, Refill(s) 0 levothyroxine 100 mcg (0.1 mg) Tab: 100 mcg = 1 tab(s), Oral, Daily, Refills(s) 0, Thyroid montelukast 10 mg Tab: 10 mg = 1 tab(s), Oral, qPM, # 90 tab(s), Refills(s) 0, Asthma orphenadrine compounding powder: PRN Migraine headache, Refills(s) 0 Problem list: All Problems Acute allergic rhinitis due to pollen / SNOMED CT 97818232 / Confirmed Benign essential hypertension / SNOMED CT 6511281 / Confirmed GERD (gastroesophageal reflux disease) / SNOMED CT 402066063 / Confirmed Lumbar spondylosis / SNOMED CT 830110312 / Confirmed Cervical spondylosis / SNOMED CT 9399488077 / Confirmed History of gastric ulcer / SNOMED CT 655473044 / Confirmed Osteopenia of lumbar spine / SNOMED CT 058884641 / Confirmed Hyperlipidemia / SNOMED CT 07057967 / Confirmed Hypothyroidism, acquired, autoimmune / SNOMED CT 223682818 / Confirmed Chronic tension headache / SNOMED CT 445152278 / Confirmed Mild persistent asthma / SNOMED CT 7056680261 / Confirmed Bilateral cataracts / SNOMED CT 998737292 / Confirmed Migraine / SNOMED CT 63933755 / Confirmed Duodenal stricture / SNOMED CT 23315220 / Confirmed H/O gastric ulcer / SNOMED CT 533307098 / Confirmed Personal history of colonic polyps / SNOMED CT 3197775429 / Confirmed Epigastric pain / SNOMED CT 690820730 / Confirmed Abdominal bloating / SNOMED CT 926249963 / Confirmed Graves disease / SNOMED CT 286765042 / Confirmed Hypertension / SNOMED CT 8031517078 / Confirmed Asthma / SNOMED CT 677655751 / Confirmed Arthritis / SNOMED CT 4591735 / Confirmed Urinary tract infection / SNO (more content not included)...[facility]edoComment on above:Result Comment: Electronically Signed By: MD Camacho Ahmad F\.br\Date and Time Signed: 04/07/24 17:50 [id number] Evaluation + Plan noteExtracted from: Title:ANES Post Op - General Author:MD Camacho Ahmad F Date:04/07/24 Plan Transfer/Discharge: Transfer/Discharge Discharge when meets criteria ( To home ). 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 Urethral caruncle (JBI98-MC N36.2, Discharge, Medical). 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 Urethral caruncle (ZXH17-QB N36.2, Discharge, Medical). Extracted from: Title:ANES Pre Op - Adult General Author:Gi mayer MD, Ahmad F Date:04/07/24 Plan [place] [employer] Anesthesiologists (ASA) physical status classification: Class III. Anesthetic Preoperative Plan Anesthesia: General. . Anesthetic plan, risks, benefits, and alternatives discussed with the patient and/or family. Risks discussed: nausea, vomiting, headache, sore throat, dental injury, serious complications. Patient verbalized understanding. Communication: face to face with patient 5 minutes. 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 6. Keep the drainage bag below the [...] Instructions - FT (Custom) (CUSTOM) 04/07/2024 10:38:45 Cook - Post Op INstructions for Bladder Tumor, Bladder Biopsy (CUSTOM) [facility] [place], [place] Post-Operative Instructions *Even though there are [...] bleeding * AZO (phenazopyridine) can be purchased bwwb-gyn-qytehhe for burning with urination. This will make [...] do not hear from us by tomorrow. ([phone] or [phone]) Follow Up Care 02/24/2024 10:45:49 With:Asuncion Buchanan Address: [address] [place] [address] [place], [address] [address]- [phone] Business (1) When: Unknown Comments:Office to call to schedule your follow up: white removal and voiding trial in 1-2 days once urine is clear. Follow up in 1-2 weeks for pathology review. 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 6. Keep the drainage bag below the [...] and call with any concerns. [facility] [place], [place] Post-Operative Ins (more content not included)...[facility] 02-24-2024 Evaluation + Plan noteExtracted from: Title:EU- [...] Appointments Appointment Date:03/24/2024 07:30:00 AM Scheduled Provider: Location:[facility] Appointment Type:Surgical PAT FT Appointment Date:04/07/2024 09:30:00 AM Scheduled Provider: Location:[facility] Appointment Type:Surgery FT Diagnostic Tests Pending * Urine Cytology ([facility]) 02/24/24 [facility] 12-09-2024 NoteProgress Note-Physician Patient: MUNIRA CHESTER Age: [...] infection., # 30 cap(s), Refills(s) 3, Pharmacy: [facility], 158, cm, 02/20/23 8:48:00 EST, Height/Length Dosing, 68.5, kg,... Pantoprazole [address] Tab: 40 mg = 1 tab(s), Oral, Daily, # 90 tab(s), Refills(s) 1, Pharmacy: [facility], 154.9, cm, 12/11/19 9:26:00 EDT, Height/Length Dosing, 70.2, kg, 12/11/19 9:26:00 EDT, Weight Dosing estradiol 0.1 mg/g Vag Crm: See Instructions, 42.5 gm, Refill(s) 0, apply pea sized amount to urethra 2x/wk, [facility], 158, cm, 02/05/24 11:08:00 EST, Height/Length [...] of stomach acid fluticasone 0.05 mg/inh Nasal [place]: 2 spray(s), Nasal, Daily, Refill(s) 0 levothyroxine [...] biopsy results. 3. Ure (more content not included)...[facility]edoComment on above:Result Comment: Electronically Signed By: Dewayne VILLEGAS, Asuncion [place]\.melissa\Date and Time Signed: 02/24/24 12:[id number] Hospital Discharge instructions Patient Education 02/24/2024 10:20:28 [...] cysto, urethral biopsy with fulguration under anesthesia [facility] [id number] NotePatient Education Cystoscopy ??? Voiding after the [...] if you have a fever over 100 degrees.[facility] 02-05-2024 Hospital Discharge instructions Patient Education 02/05/2024 [...] provider. Document Revised: 07/13/2021 Document Reviewed: 07/13/2021 [employer] Patient Education 2023 [employer]. Follow Up Care 02/20/2023 09:54:54 With:Dewayne VILLEGAS, Asuncion [place], URL, URO Address: When: Unknown Comments:Schedule Cysto and Pelvic Exam [facility] 11-20-2024 NotePatient Education Obstetrics and Gynecology [...] provider. Document Revised: 07/13/2021 Document Reviewed: 07/13/2021 [employer] Patient Education ? 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 documented in this encounterSSM Health Cardinal Glennon Children's HospitalFyrmzyuoai10-17-5006 Evaluation note* Diagnosis Onset Date Resolution Status Admit Date Asthma acute February 05, 2024 8:24am Hypertension acute January 8:24am Hypothyroidism acute January 172023 8:24am Iron deficiency anemia acute No vember 2023 8:24am Medicare annual wellness vis it, subsequent acute February 04, 8:24am Osteoporosis acute November 20t h, 2024 8:24am Screening mammogram for [facility] cancer acute February 04, 2 024 8:24am Small bowel stricture acute Nov 2023 8:24am [facility] Work Phone: 1(205) 146-789910-14-2024 History of Present illness Narrative* Charito Vasquez [...] Xhance lavage and try and send to [facility]. Follow-up in 4 months. Discuss simons again at that time to see if [facility] pharmacy has been less expensive for her Xhance. documented in this encounterSSM Health Cardinal Glennon Children's HospitalFascisgdjk05-53-1416 Instructions* Patient Instructions* Kasey Fallon MD - [...] am on dialysis? A: Please consult your solar sales specialist prior to scheduling to get instructions pertinent to you. In general, dialysis patients take the Golytely bowel prep and have the procedure same [...] rest of the day. documented in this encounterChildren'S [facility]10-11-2024 History of Present illness Narrative* Kasey Fallon [...] balloon enteroscopy Kasey Fallon MD 12/27/2023 Staff Talent Acquisition Specialist Dig[facility]ive Diseases [facility] [place] [facility] , REFERRING PROVIDER: [facility] [address] [facility] [address] REASON FOR REFERRAL: Small bowel stricture HISTORY: [...] Inhale 1 Inhalation as instructed once daily. Svwsdfwtof-Yfnvijccbanzb-Plkw (FIORICET) 50-300-40 mg cap Take by mouth. EPINEPHrine (EPIPEN) 0.3 mg/0.3 mL auto-injector Inject 0.3 mg intramuscularly as needed. fluticasone (FLONASE) 50 mcg/actuation nasal spray Use 1 [place] in each nostril once daily. atorvastatin (LIPITOR) [...] dilated small bowel. No visualized stricture. 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 Right [...] of records, and documentation. documented in this encounterChildren'S Hospital Of [facility]10-11-2024 NoteHNO ID: [id number] Author: KASEY FALLON MD Service: ? Author [...] balloon enteroscopy Kasey Fallon MD 12/27/2023 Staff Talent Acquisition Specialist [facility] Diseases [facility] [place] [facility] , REFERRING PROVIDER: [employer] [address] [facility] [address] REASON FOR REFERRAL: Small bowel stricture HISTORY: [...] Inhale 1 Inhalation as instructed once daily. Ryjxgcxket-Ymgbfvrbplyec-Vzcf (FIORICET) 50-300-40 mg cap Take by mouth. EPINEPHrine (EPIPEN) 0.3 mg/0.3 mL auto-injector Inject 0.3 mg intramuscularly as needed. fluticasone (FLONASE) 50 mcg/actuation nasal spray Use 1 [place] in each nostril once daily. atorvastatin (LIPITOR) [...] S/p laparoscopic cholecystectomy (more content not included)...[facility]10-09-2024 Telephone encounter Note* Telephone Encounter - Hollis Mckeon, RN - 12/25/2023 2:56 PM EDT Pt called and left VM, said had small bowel xray done, saw results and now questioning if still needs appt with Dr. Fallon, scheduled for 12/26, asking for return call to clarify if still needs to come or can cx. Call cell phone at [phone]. Hollis Mckeon, RN [facility]10-09-2024 Miscellaneous Notes* Telephone Encounter - Hollis Mckeon RN - 12/25/2023 2:56 PM EDT Pt called and left VM, said had small bowel xray done, saw results and now questioning if still needs appt with Dr. Fallon, scheduled for 12/26, asking for return call to clarify if still needs to come or can cx. Call cell phone at [phone]. Hollis Mckeon RN documented in this encounterChildren'S Hospital Of Columbus10-08-2024 History of Present illness Narrative* Mary Jimenez [...] PATIENT PRESENTS WITH AN IMPLANTABLE OR ATTACHED DATA WAREHOUSING SPECIALIST: No RADIOLOGY DEPARTMENT: General X-ray: Exam(s) Completed: GI/ Procedure(s): Small bowel series withbarium contrast PERIPHERAL IV DATA: Not applicable SIGNED BY: RT Adair(R) December 24, 2023 2:19 PM documented in this [facility] NoteHNO ID: [id number] Author: MARY JIMENEZ RT(R) Service: Radiology Author [...] PATIENT PRESENTS WITH AN IMPLANTABLE OR ATTACHED DATA WAREHOUSING SPECIALIST: No RADIOLOGY DEPARTMENT: General X-ray: Exam(s) Completed: GI/ Procedure(s): Small bowel series with barium contrast PERIPHERAL IV DATA: Not applicable SIGNED BY: RT Adair(R) December 24, 2023 2:19 [facility]09-18-2024 Telephone encounter Note* Telephone Encounter - Hollis Mckeon RN - 12/04/2023 11:11 AM EDT Pt left VM and would like to reschedule GI test to earlier in week due to would like to come with her and drive and then maybe MD would also have test results before appt. Hollis Mckeon RN [facility]09-18-2024 Miscellaneous Notes* Telephone Encounter - Hollis Mckeon RN - 12/04/2023 11:11 AM EDT Pt left VM and would like to reschedule GI test to earlier in week due to would like to come with her and drive and then maybe MD would also have test results before appt. Hollis Mckeon RN documented in this encounterChildren[facility]08-15-2024 Telephone encounter Note * Telephone Encounter - Rehana Hoang - 10/31/2023 9:30 AM EDT Patient called to see if you have received a fax from a Dr. Nettles's office for a pill cam? [facility] Miscellaneous Notes* Telephone Encounter - Rehana Hoang - 10/31/2023 9:30 AM EDT Patient called to see if you have received a fax from a Dr. Nettles's office for a pill cam? documented in this encounterChildren[facility]07-31-2024 Telephone encounter Note * Telephone Encounter - Hollis Mckeon RN - 10/16/2023 1:49 PM EDT Faxed referral received on 10/15/23 for pt sent from Dr. Ace from [facility] to attention Dr. Fallon, for pt for GI for consideration for double balloon enteroscopy. What records were received were scanned to chart. Hollis Mckeon RN [facility]07-[facility]-2024 Miscellaneous Notes* Telephone Encounter - Hollis Mckeon RN - 10/16/2023 1:49 PM EDT Faxed referral received on 10/15/23 for pt sent from Dr. Ace from [facility] to attention Dr. Fallon, for pt for GI for consideration for double balloon enteroscopy. What records were received were scanned to chart. Hollis Mckeon RN documented in this encounterChildren'[facility]06-29-2024 History of Present illness Narrative* Jhonny Maher [...] contrast media, Iodine, Wasp venom, Amoxicillin, Sulfacetamide fei-bjmbpy-jhbj, Penicillin, and Sulfa (sulfonamide antibiotics) Current Meds: [...] apply pea sized amount to urethra 2x/wk, [facility], 158, cm, 02/20/23 8:48:00 [...] at the same time, Disp: , Rfl: ykhfidblsi-ksgdoegxilqpz-feay (Fioricet) 50-300-40 mg capsule, Take by mouth., [...] LAD, no thyroid masses. SINONASAL ENDOSCOPY (CPT 71743): To better evaluate the patient's symptoms, sinonasal [...] given doxycycline and asked to begin dextromethorphan qnov-ivr-mpudxtj. I personally reviewed the last note from [...] on her imaging were the most significant bung driver of her ongoing throat clearing and [...] moving forward. All questions were answered. Between vpfs-rp-wqxy contact, review of the medical record, and documentation I spent 65 minutes onthis evaluation during the day of service. Signature: Jhonny Maher MD documented in this [facility] Work Phone: [phone] 192-569606-20-2024 Alejandrae from [employer] [facility] called stating that a referral was faxed ton August 25 for patient for a double balloon enteroscopy. Had spoken with Dayan previously as we don't do the double balloons but referring physician is fine with just a single balloon. [facility] is [facility] where [facility] double balloon [facility] be done so disregard this referral.[place]06-12-2024 NoteCalled and spoke with Dayan at [facility] regarding a referral that was sent on August 25 for this patient. In reading the notes she is being referred for a double balloon enteroscopy and our physicians only do single balloon's. She will check with Dr. Ace to see how he would like to proceed and let me know.[place]03-07-2024 Note [id number] [facility] 05-22-2023 Hospital Discharge instructions Patient Education 05/22/2023 [...] unsweetened, w/added ascorbic acid 1 cup 0.5 [place] 1 cup 0.7 Vegetables Cooked Green beans 1 cup 4.0 Carrots 1/2 cup sliced 2.3 Peas 1 cup 8.8 Potato (baked, with skin) 1 medium potato 3.8 Raw [place] (with peel) 1 cucumber 1.5 Lettuce 1 [...] 8.7 Peanuts 1/2 cup 7.9 Chart from [facility] 2013. SEEK IMMEDIATE MEDICAL CARE IF: You [...] Reference. Available at http://www.nal.usda.gov/fnic/foodcomp/search/. Information adapted from: [facility] Patient Information 2009 [employer]. [facility] HospitalDate 2012 http://www.[employer]/contents/vxrguvgxoxmr-rsluwtm-vhvvaj-the-basics 05/22/2023 08:58:41 Hemorrhoids, Obyi-el-Wdpi Hemorrhoids Hemorrhoids are swollen veins that may [...] 3 times a day. General instructions Take epvk-xtm-ymbjert and prescription medicines only as told by [...] provider. Document Revised: 09/13/2021 Document Reviewed: 09/13/2021 [employer] Patient Education 2022 [employer]. 05/22/2023 08:58:37 Endoscopy, Care After Procedure [facility] Endoscopy Care After Procedure Please read the instructions outlined below and refer to this sheet in the next few weeks. These discharge instructions provide you with general information on [facility] Your doctor may also give you [...] blood. Document Released: 10/16/2004 Document Re-Released: 08/26/2006 ExitCare Patient Information [employer]. 05/22/2023 08:58:29 Hiatal Hernia Hiatal Hernia A [...] reduce GERD symptoms. Medicines. These may include: ?Kwkz-hdg-uartfaa antacids. ?Medicines that make your stomach empty [...] may include: ?Fatty foods, like fried foods. ?[place] fruits, like oranges or lemon. ?Other foods [...] Do not drink alcohol. General instructions Take txxv-tdi-vwibllh and prescription medicines only as told by [...] provider. Document Revised: 05/01/2022 Document Reviewed: 05/01/2022 [employer] Patient Education 2022 [employer]. Follow Up Care 05/14/2023 13:37:06 With:Tho VILLEGAS, ANGLE Villanueva, [facility] Address: When: Unknown Comments:Call for any problems. The office will reach out in about one week from procedure date. [facility]02-05-2024 Evaluation note* Encounter Date Diagnosis Assessment Notes Treatment Notes Treatment Clinical Notes Apr, Moderate persistent asthma without complication (ICD-10 - J45.40) [facility] Other 02-02-2024 Evaluation note* Encounter Date Diagnosis Assessment Notes Treatment Notes Treatment Clinical Notes Apr, Moderate persistent asthma with acute exacerbation (ICD-10 - J45.41) [facility] Other 01-30-2024 Evaluation note* Encounter Date Diagnosis [...] Claritin, Singulair and Flonase Scheduled to see swing driver. Mar, Gastroesophageal reflux disease with esophagitis without hemorrhage (ICD-10 - K21.00) Avoid lying flat after eating. Avoid eating 2 hours prior to bedtime. Smaller, frequent meals may be better tolerated.Weight loss if overweight.PPI with any heartburn.Monitor for dysphagia. [facility] Other 01-18-2024 Evaluation note* Encounter Date Diagnosis Assessment Notes Treatment Notes Treatment Clinical Notes Mar, Iron deficiency anemia due to chronic blood loss (ICD-10 - D50.0) [facility] Other 12-22-2023 Evaluation note* Encounter Date Diagnosis Assessment Notes Treatment Notes Treatment Clinical Notes Feb, Iron deficiency anemia due to chronic blood loss (ICD-10 - D50.0) [facility] Other 12-20-2023 Evaluation note* Encounter Date Diagnosis Assessment Notes Treatment Notes Treatment Clinical Notes Feb, Anemia (ICD-10 - D64.9) [facility] Other 12-11-2023 Evaluation note* Encounter Date Diagnosis Assessment Notes Treatment Notes Treatment Clinical Notes Feb, Moderate persistent asthma without complication (ICD-10 - J45.40) [facility] Other 12-06-2023 Hospital Discharge instructions Patient Education [...] relieve pelvic muscle tension or spasms. Take atte-adv-vtcnghk and prescription medicines only as told by [...] provider. Document Revised: 07/12/2021 Document Reviewed: 07/12/2021 [employer] Patient Education 2022 [employer]. 02/20/2023 09:44:59 Kegel Exercises Kegel Exercises Kegel [...] provider. Document Revised: 07/13/2021 Document Reviewed: 07/13/2021 [employer] Patient Education 2022 [employer]. Follow Up Care 01/31/2022 08:50:25 With:Dewayne VILLEGAS, Asuncion London, RANDAL, URO Address: [address], [facility] [place] [address] [phone] When: Unknown Comments:1 yr [facility] [employer] 12-04-2023 Evaluation note* Encounter Date Diagnosis Assessment Notes Treatment Notes Treatment Clinical Notes Feb, Moderate persistent asthma with acute exacerbation (ICD-10 - J45.41) Holding Breo for trial of Trelegy. Avoid dust, mold, fumes as much as possible. Steroid taper to break cycle of coughing Refer to Ultrasound Technol and Outside Deliverer when stable Feb, Non-seasonal allergi c rhinitis due to other allergic trigger (ICD-10 - J30.89) Continue FLonase NS Add Astepro NS Continue Claritin and Singulair Feb, Gastroesophageal reflux disease with esophagitis without hemorrhage (ICD-10 - K21.00) Diet instructions: Smaller portions, avoid eating and laying flat, avoid eating or drinking prior to bedtime. Weight loss. Continue PPI [facility] Other 11-21-2023 Evaluation note* Encounter Date Diagnosis Assessment Notes Treatment Notes Treatment Clinical Notes Jan, Age-related osteopor osis without current pathological fracture (ICD-10 - M81.0) Jan, Hypercholesteremia (ICD-10 - E78.00) [facility] Other 11-14-2023 Evaluation note* Encounter Date Diagnosis Assessment Notes Treatment Notes Treatment Clinical Notes Jan, Menopause (ICD-10 - Z78.0) [facility] Other 11-10-2023 Evaluation note* Encounter Date Diagnosis Assessment Notes Treatment Notes Treatment Clinical Notes Jan, Hypercholesteremia (ICD-10 - E78.00) [facility] Other 11-10-2023 Evaluation note* Encounter Date Diagnosis [...] much improved. Offered PFT and referral to Outside Deliverer. Jan, Autoimmune thyroidit is (ICD-10 - E06.3) [...] LORENZO (generalized anxiety disorder) (ICD-10 - F41.1) [facility] Other 09-27-2023 Evaluation note* Encounter Date Diagnosis Assessment Notes Treatment Notes Treatment Clinical Notes Nov, Moderate persistent asthma with acute exacerbation (ICD-10 - J45.41) Reviewed medication - continue LABA/ICS and NIKO - continue Singulair, Claritin and Flonase Suggested short course of Steroids and antibiotics. Discussed use of LAMA in combination of what she is presently taking CXR if no improvement [facility] Other 08-23-2023 Evaluation note* Encounter Date Diagnosis Assessment Notes Treatment Notes Treatment Clinical Notes Oct, Mild persistent asthma, uncomplicated (ICD-10 - J45.30) [facility] Other 08-17-2023 Evaluation note* Encounter Date Diagnosis [...] understanding and is agreeable to treatment plan [facility] Other 04-12-2023 NotePROCEDURE: XR FOOT RT MIN [...] Electronically authenticated by: JEROME ESPINOSA Date: 2022-06-27 15:36[facility]03-02-2023 NotePROCEDURE: XR FOOT RT MIN [...] Electronically authenticated by: CAMPOS ERAZO Date: 2022-05-17 16:27[facility]02-09-2023 NotePROCEDURE: XR FOOT RT MIN [...] authenticated by: JEROME ESPINOSA Date: 2022-04-26 09:37[id number] NotePROCEDURE: XR FOOT RT MIN 3 VIEWS [...] Electronically authenticated by: JEROME ESPINOSA Date: 2022-04-05 14:43[facility] [id number] NotePROCEDURE: XR FOOT RT 2V HISTORY: Pain [...] authenticated by: JEROME ESPINOSA Date: 2022-04-05 14:41[facility] [id number] NotePROCEDURE: XR FOOT RT MIN 3 VIEWS [...] Electronically authenticated by: JEROME ESPINOSA Date: 2022-03-28 10:17[facility]12-26-2022 NotePROCEDURE: XR FOOT RT MIN [...] Electronically authenticated by: JEROME ESPINOSA Date: 2022-03-12 09:46[facility]12-19-2022 Evaluation note* Encounter Date Diagnosis Assessment Notes Treatment Notes Treatment Clinical Notes Feb, Acute pain of left shoulder (ICD-10 - M25.512) Feb, Tear of left supraspinatus tendon (ICD-10 - M75.102) A 1/1cc marcaine / kenalog cortisone injection was performed into the subacromial space under sterile technique. Patient tolerated the injection well with no adverse reaction. [facility] Other 09-16-2022 Hospital Discharge instructions Patient Education [...] (electrical nerve stimulation). For women, using a dental assistant medical assistant to prevent urine leaks. This is a [...] right after experiencing incontinence. General instructions Take tyyi-tuu-vvkhqjm and prescription medicines only as told by [...] 04/11/2005 Document Revised: 03/14/2018 Document Reviewed: 06/13/2017 [employer] Patient Education [employer]. Follow Up Care 10/20/2021 08:23:44 With:Dewayne VILLEGAS, Asuncion London, UR, URO Address: When: Unknown [facility] 2022 Evaluation note* Encounter Date Diagnosis [...] the injection well with no adverse reaction. [facility] Other Evaluation + Plan note Future Appointments Appointment Date:01/31/2022 08:00:00 AM Scheduled Provider:Asuncion Buchanan MD Location:[facility] Appointment Type:URO Office Visit [facility] Evaluation + Plan note Future Appointments Appointment Date:02/19/2024 08:00:00 AM Scheduled Provider:Asuncion Buchanan MD Location:[facility] Appointment Type:URO Office Visit [facility] evaluation + Plan note Future Appointments Appointment Date:05/22/2023 08:00:00 AM Scheduled Provider: Location:[facility] Appointment Type:Surgery FT Appointment Date:02/19/2024 08:00:00 AM Scheduled Provider:Asuncion Buchanan MD Location:[facility] Appointment Type:URO Office Visit [facility] Evaluation + Plan note Future Appointments Appointment Date:07/23/2023 08:00:00 AM Scheduled [facility]:CT Sinus/Orbits/Maxillofacial (FT) Appointment Date:02/19/2024 08:00:00 AM Scheduled Provider:Asuncion Buchanan MD Location:[facility] Appointment Type:URO Office Visit Future Scheduled Tests Radiology* XR Abdomen 1 View 07/04/23 * CT Maxillofacial w/o Contrast 07/23/23 [facility] Evaluation + Plan note Future Appointments Appointment Date:07/23/2023 08:00:00 AM Scheduled Provider: [facility] Type:CT Sinus/Orbits/Maxillofacial (FT) Appointment Date:02/19/2024 08:00:00 AM Scheduled Provider:Asuncion Buchanan MD Location:[facility] Appointment Type:URO Office Visit Future Scheduled Tests Radiology* CT Maxillofacial w/o Contrast [facility] Appointment Date:07/23/2023 08:00:00 AM Scheduled Provider: Location[facility] Appointment Type:CT Sinus/Orbits/Maxillofacial (FT) Appointment Date:08/15/2023 08:15:00 AM Scheduled Provider:Del Nettles MD Location:[facility] Digestive Health Appointment Type:[facility] Follow Up Appointment Date:02/19/2024 08:00:00 AM Scheduled Provider:Asuncion Buchanan MD Location:[facility] Appointment Type:URO Office Visit Future Scheduled Tests Radiology* CT Maxillofacial w/o Contrast 07/23/23 [facility] Evaluation + Plan note Future Appointments Appointment Date:08/15/2023 08:15:00 AM Scheduled Provider:Del Nettles MD Location:[facility] Digestive [facility] Appointment Type:[facility] Follow Up Appointment Date:02/19/2024 08:00:00 AM Scheduled Provider:Asuncion Buchanan MD Location:[facility] Appointment Type:URO [facility]ments Appointment Date:02/05/2024 10:45:00 AM Scheduled Provider:Asuncion Buchanan MD Location:[facility] Appointment Type:URO Office Visit [facility] evaluation + Plan note Future Appointments Appointment Date:02/05/2024 10:45:00 AM Scheduled Provider:Asuncion Buchanan MD Location:[facility] Appointment Type:URO Office Visit Diagnostic Tests Pending * Urine Culture 12/27/23 [facility] Evaluation + Plan note Future Appointments Appointment Date:02/17/2024 09:00:00 AM Scheduled Provider: Location:[facility] Services Appointment Type:Urology CALL PAT FT Appointment Date:02/24/2024 09:30:00 AM Scheduled Provider: Location:[facility] Appointment Type:Urology FT [facility] evaluation + Plan note Future Appointments Appointment Date:04/07/2024 09:30:00 AM Scheduled Provider: Location:[facility] Appointment Type:Surgery FT Appointment Date:04/22/2024 10:45:00 AM Scheduled Provider:Asuncion Buchanan MD Location:[facility] Appointment Type:URO Office Visit Diagnostic Tests Pending * Urine Culture 1/7/25 [facility] Evaluation + Plan note Future Appointments Appointment Date:04/22/2024 10:45:00 AM Scheduled Provider:Dewayne VILLEGAS, Asuncion London Location:[facility] Appointment Type:URO Office Visit [facility] evaluation + Plan note Future Appointments Appointment Date:05/20/2024 07:30:00 AM Scheduled Provider: Location:[facility] Services Appointment Type:Surgical PAT FT Appointment Date:06/02/2024 09:30:00 AM Scheduled Provider: Location:[facility] Appointment Type:Surgery FT [facility] evaluation + Plan note Future Appointments Appointment Date:06/02/2024 09:30:00 AM Scheduled Provider: Location:[facility] Appointment Type:Surgery FT Diagnostic Tests Pending * Urine Culture 05/20/24 [facility] Evaluation + Plan note Future Appointments Appointment Date:11/05/2024 08:15:00 AM Scheduled Provider:Del Nettles MD Location:[facility] Digestive Health Appointment Type:[facility] Follow Up [facility] Dig[facility]ive Health evaluation noteNo [facility] [employer] Other evaluation noteNo assessment information [facility] Work Phone: Evaluvxpyk note* Diagnosis Other partial intestinal obstruction (HCC)- Primary [facility]* Diagnosis Other partial intestinal obstruction (HCC) [facility]* Diagnosis Iron deficiency anemia due to chronic blood loss- Primary Iron deficiency anemia secondary to blood loss (chronic) Abnormal finding on GI tract imaging Nonspecific (abnormal) findings on radiological and other examination of gastrointestinal tract documented [facility] this [facility]* Diagnosis Chronic maxillary sinusitis- Primary Chronic pansinusitis Other chronic sinusitis [facility]* Diagnosis Keratoconjunctivitis sicca of both eyes not specified as Sjogren's- Primary Blepharitis of upper and lower eyelids of both eyes, unspecified type Bilateral posterior capsular opacification Unspecified after-cataract documented in this encounter [facility] HealthcareEvaluation note* Diagnosis Chronic maxillary sinusitis- Primary Chronic ethmoiditis Chronic ethmoidal sinusitis Chronic cough Cough Asthma, unspecified asthma severity, unspecified whether complicated, unspecified whether persistent ([facility]) documented in this encounter [facility] Work Phone: Evaluation note* Diagnosis Encounter for gynecological examination without abnormal finding Screening for malignant neoplasm of cervix Screening for malignant neoplasm of the cervix Encounter for screening mammogram for breast cancer Lichen sclerosus et atrophicus Circumscribed scleroderma Screening for osteoporosis Special screening for osteoporosis Postmenopausal status, age-related documented in this encounter [facility] HealthcareEvaluation note* Diagnosis Chronic maxillary sinusitis- Primary documented in this encounter [facility] HealthcareEvaluation note* Diagnosis Iron deficiency anemia due to chronic blood loss Iron deficiency anemia secondary to blood loss (chronic) Abnormal finding on GI tract imaging Nonspecific (abnormal) findings on radiological and other examination of gastrointestinal tract documented [facility] this [facility]* Diagnosis 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 documented in this encounter [facility] general Narrative - Reported* Type Description Date [...] above Hospitalization History blood transfusion from b [employer] Other [facility] general Narrative - Reported* Type Description Date [...] above Hospitalization History blood transfusion from [facility] [employer] Other Hisxedd general Narrative - Reported* Type Description Date [...] above Hospitalization History blood transfusion from [facility] [employer] Other History general Narrative - Reported* Type [...] see above Hospitalization History blood transfusion from [employer] Other Hisjauf general Narrative - Reported* Type Description Date [...] see above Hospitalization History blood transfusion from [employer] Other Hospital course Narrative No data available for this section [facility] Discharge instructions No data available for this section [facility] Dig[facility]ive Health Progress note No data available for this section [facility] Babar Reason for referral (narrative)* Reason *FU 04/23 Referral for iron deficiency anemia. Diagnosis 1 Iron deficiency anem ia secondary to inadequate dietary iron intake (D50.8) Referral Organization [facility] kenny Referring Provider First Name Andrea Referring Provider Last Name [place] Referring Provider Specialty Internal Me dicine Referred Organization [facility] Referred Provider CHRISSY EHCTOR Referred Address [address], [place],[address] Referred Provider Specialty Hematology Referral Priority Routine [...] faxed Clinical Notes Include labs results p: [phone] f: [id number] Reason Referral for pe rsistent cough and wheezing Diagnosis 1 Moderate persistent asthma with acute exacerbation (J45.41) Referral Organization [facility] kenny Referring Provider First Name Andrea Referring Provider Last Name [place] Referring Provider Specialty Internal Me dicine Referred Organization [facility] Referred Provider Edouard Espinosa Referred Address [address], [place],[address] Referred Provider Specialty Pulmonary Di seases Referral Priority Routine General Notes Patient w/ allergic rhinitis and asthma w/ deterioration of her symptoms over the past year. Her medications have been maximized and alternative etiology for cough and wheezing addressed. She has been referred to an Ultrasound Technol for evaluation and scheduled for a PFT. Alla Castillo 04/16/2023 10:39:47 AM >received today, waiting for notes to be locked, and for CXR LABS AND PFT TO BE COMPLETED Weinberg Shannan 04/18/2023 09:54:53 AM > Patient is scheduled with Dr Espinosa's office on 05/15 at 9am Clinical Notes Include CXR, labs an d PFT when completed Reason *04/24 Referral for opinion on further testing for iron deficiency anemia Diagnosis 1 Iron deficiency anem ia secondary to inadequate dietary iron intake (D50.8) Referral Organization [facility] kenny Referring Provider First Name Andrea Referring Provider Last Name [place] Referring Provider Specialty Internal Me dicine Referred Organization [facility] Referred Address [address],[place], [place] Referred Provider Specialty Gastroentero logy Referral Priority [...] notes locked, referral faxed Clinical Notes f: [phone] RESPACE Other Reason for referral (narrative)* Reason *04/23 Referral for iron deficiency anemia. Diagnosis 1 Iron deficiency anem ia secondary to inadequate dietary iron intake (D50.8) Referral Organization [facility] kenny Referring Provider First Name Andrea Referring Provider Last Name [place] Referring Provider Specialty Internal Me dicine Referred Organization [facility] Referred Provider CHRISSY HECTOR Referred Address [address], [place],[address] Referred Provider Specialty Hematology Referral Priority Routine [...] made, waiting for notes to be locked Jonathan Alla 04/16/2023 03:12:51 PM >notes are locked, referral faxed Clinical Notes Include labs results p: [id number] f: [id number] Reason Referral for pe rsistent cough and wheezing Diagnosis 1 Moderate persistent asthma with acute exacerbation (J45.41) Referral Organization [facility] [place] cox Referring Provider First Name Andrea Referring Provider Last Name [place] Referring Provider Specialty Internal Me dicine Referred Organization [facility] Referred Provider Edouard Espinosa Referred Address [address], [place],[address] Referred Provider Specialty Pulmonary Di [facility] Referral Priority Routine General Notes Patient w/ allergic rhinitis and asthma w/ deterioration of her symptoms over the past year. Her medications have been maximized and alternative etiology for cough and wheezing addressed. She has been referred to an Ultrasound Technol for evaluation and scheduled for a PFT. [...] inadequate dietary iron intake (D50.8) Referral Organization [facility] [place] cox Referring Provider First Name Andrea Referring Provider Last Name [place] Referring Provider Specialty Internal Me dicine Referred Organization [facility] Referred Address [address],[place], [place],[address] Referred Provider Specialty Gastroentero logy Referral Priority [...] to Hematology for IV iron and evaluation. RESPACE Other Reason for referral (narrative)* Diagnostic Procedure Only (Routine) - Closed Specialty Diagnoses / Procedures Referred By Chinmay stark Referred To Contact XR IMAGING Diagnoses Other partial intestinal obstruction (HCC) Procedures XR SMALL BOWEL SERIES RADIOLOGIC EXAM SMALL INT SINGLE CONTRAST STUDY Kasey Fallon MD [facility] [address] [place], [place] [id number] Xr Imaging [place] [address] Referral ID Status Reason Start Date Expiration Date V isits Requested Visits Authorized [id number] Closed Auto-Generate d Referral 11/22/2023 12/21/2024 1 1 [facility] for referral (narrative)* Outpatient Procedure (Routine) - New Request Specialty Diagnoses / Procedures Referred By Chinmay stark Referred To Contact [facility] Diagnoses Iron deficiency anemia due to chronic blood loss Abnormal finding on GI tract imaging Procedures ENTEROSCOPY ENTEROSC >2ND PRTN W/ILEUM W/BX SINGLE/MULTIPLE UNLISTED PROCEDURE SMALL INTESTINE Kasey Fallon MD [facility] [address] [place] [id number] [facility] [place] [address] [place] [address] Referral ID Status Reason Start Date Expiration Date Visits Requested Visits Authorized [id number] New Request Auto-Generat ed Referral 12/26/2024 1 1 [facility] for visit Narrative* Outpatient Procedure (Routine) - Closed Specialty Diagnoses / Procedures Referred By Chinmay stark Referred To Contact [facility] Diagnoses Iron deficiency anemia due to chronic blood loss Abnormal finding on GI tract imaging Procedures ENTEROSCOPY ENTEROSC >2ND PRTN W/ILEUM W/BX SINGLE/MULTIPLE UNLISTED PROCEDURE SMALL INTESTINE Kasey Fallon MD [facility] [address] [place], [place] [id number] Phone: tel: fax: [facility] [address] [place] [address] Referral ID Status Reason Start Date Expiration Date V isits Requested Visits Authorized [id number] Closed Auto-Generate d Referral 12/27/2023 12/26/2024 1 1 [facility] Summary Purpose Family History No Family History [...] ABD & PELVIS W/CONTRAST [place] [address] Ct Imaging [place] [address] Referral ID Status Reason Start Date Expiration Date Visits Requested Visits Authorized [id number] New Request Auto-Generat ed Referral 10/31/2023 11/29/2024 [...] INT SINGLE CONTRAST STUDY [place] [address] [place] [address] Referral ID Status Reason Start Date Expiration Date V isits Requested Visits Authorized [id number] Closed Auto-Generate d Referral 11/22/2023 12/21/2024 1 [...] few weeks ago which turned up negative. Reason Comments Education Of Patient/family Patient Question Message sent to refe rring physician regarding a substitute for Gatorade Reason Onset Date Comments refill 10/29/2024 INFORMATION SOURCE (unrecogn ized section and content) DATE CREATED AUTHOR 10/11/2021 [facility] DATE CREATED AUTHOR AUTHOR'S ORGANIZ ATION 07/02/2022 [facility] DATE CREATED AUTHOR AUTHOR'S ORGANIZ ATION 09/07/2023 [facility] DATE CREATED AUTHOR AUTHOR'S ORGANIZ ATION 09/15/2023 [facility] DATE CREATED AUTHOR AUTHOR'S ORGANIZ ATION 10/12/2023 [facility] DATE CREATED AUTHOR AUTHOR'S ORGANIZ ATION 11/10/2023 [facility] DATE CREATED AUTHOR AUTHOR'S ORGANIZ ATION 01/01/2024 [facility] DATE CREATED AUTHOR AUTHOR'S ORGANIZ ATION 02/08/2024 [facility] DATE CREATED AUTHOR AUTHOR'S ORGANIZ ATION 02/27/2024 [facility] DATE CREATED AUTHOR AUTHOR'S ORGANIZ ATION 03/30/2024 [facility] DATE CREATED AUTHOR AUTHOR'S ORGANIZ ATION 03/31/2024 [facility] DATE CREATED AUTHOR AUTHOR'S ORGANIZ ATION 04/10/2024 [facility] DATE CREATED AUTHOR AUTHOR'S ORGANIZ ATION 04/19/2024 [facility] DATE CREATED AUTHOR AUTHOR'S ORGANIZ ATION 04/24/2024 [facility] DATE CREATED AUTHOR AUTHOR'S ORGANIZ ATION 05/02/2024 [facility] DATE CREATED AUTHOR AUTHOR'S ORGANIZ ATION 05/21/2024 [facility] DATE CREATED AUTHOR AUTHOR'S ORGANIZ ATION 05/22/2024 [facility] DATE CREATED AUTHOR AUTHOR'S ORGANIZ ATION 05/24/2024 [facility] DATE CREATED AUTHOR AUTHOR'S ORGANIZ ATION 07/23/2024 [facility] DATE CREATED AUTHOR AUTHOR'S ORGANIZ ATION 12/18/2024 [facility] Care Teams (unrecognized sec tion and content) Team Status: Active Member Role Status Dates Andrea Golden DO Primary Care Provider Active Team Status: Active Member Role Status Dates Andrea Golden DO Primary Care Provider Active Start: May 23, 2023 Lisa Em Attending Provider Active Start: Diana [facility] 2023 Team Status: Active Member Role Status [...] Status: Active Member Role Status Dates Andrea Goledn DO Primary Care Provide r, Attending Provider Active Start: July 02, 2023 Team Status: Inactive Member Role Status Dates Andrea Golden DO Primary Care Provider Active Start: August 20, 2023 End: August 20, 2023 Gladis Bell APRN Attending Provider Active Start: August 20, 2023 End: August 20, 2023 Team Status: Inactive Member Role Status Dates Espinoza Ruiz MD Attending Provider Active [employer] Receiver Relationship Specialty Start Date End Date Andrea Golden MD [address] [place] [address] PCP - General Internal Medicine 08/27/22 Team Status: Inactive Member Role Status Dates Andrea Golden DO Attending Provider Active Sta rt: April 16, 2023 End: April 16, 2023 [employer] Receiver Relationship Specialty Start Date End Date Andrea Golden DO [address] [place] [address] PCP - General Internal Medicine 12/27/23 Jones Ace MD [address] [place], [place] [id number] Internal Medicine 12/27/23 Chrissy Hector MD [address] [place] [address] Hematology/Oncology 12/27/23 [employer] Re[employer] Relationship Specialty Start Date End Date Andrea Golden MD PCP - General Internal Medicine 08/27/22 [employer] Receiver Relationship Specialty Start Date End Date Andrea Golden MD PCP - General Internal Medicine 08/27/22 Team Status: Active Member Role Status Dates Andrea Golden DO Primary Care Provider Active Start: November 22, 2023 Chrissy Hector MD Attending Provider Active St art: November 22, 2023 Team Status: Active Member Role Status Dates Andrea Goledn DO Primary Care Provide r, Attending Provider Active Start: January 29, 2024 Team Status: Inactive Member Role Status Dates Andrea Golden DO Primary Care Provide r, Attending Provider Active Start: February 05, 2024 End: February 05, 2024 [employer] Receiver Relationship Specialty Start Date End Date Andrea Golden MD PCP - General Internal Medicine 08/27/22 [employer] Receiver Relationship Specialty Start Date End Date Andrea Golden MD PCP - General Internal Medicine 08/27/22 [employer] Receiver Relationship Specialty Start Date End Date Andrea Golden MD PCP - General Internal Medicine 08/27/22 [employer] Receiver Relationship Specialty Start Date End Date Andrea Golden MD PCP - General Internal Medicine 08/27/22 [employer] Receiver Relationship Specialty Start Date End Date Andrea Golden MD PCP - General Internal Medicine 08/27/22 [employer] Receiver Relationship Specialty Start Date End Date Andrea Golden DO [address] [place] [address] PCP - General Internal Medicine 12/27/23 Jones Ace MD [address] [place] [address] Internal Medicine 12/27/23 Chrissy Hector MD [address] [place] [id number] Hematology/Oncology 12/27/23 [employer] Receiver Relationship Specialty Start Date End Date Andrea Golden DO [address] [place] [address] PCP - General Internal Medicine 12/27/23 Jones Ace MD [address] [place] [address] Internal Medicine 12/27/23 Chrissy Hector MD [address] [place] [address] Hematology/Oncology 12/27/23 [employer] Receiver Relationship Specialty Start Date End Date Andrea Golden DO [address] [place] [address] PCP - General Internal Medicine 12/27/23 Jones Ace MD [address] [place] [address] Internal Medicine 12/27/23 Chrissy Hector MD [address] [place] [address] Hematology/Oncology 12/27/23 [employer] Receiver Relationship Specialty Start Date End Date Andrea Golden DO [address] [place] [address] PCP - General Internal Medicine 12/27/23 Jones Ace MD [address] [place] [address] Internal Medicine 12/27/23 Chrissy Hector MD [address] [place] [address] Hematology/Oncology 12/27/23 [employer] Receiver Relationship Specialty Start Date End Date Andrea Golden DO [address] [place] [address] PCP - General Internal Medicine 12/27/23 Jones Ace MD [address] [place] [address] Internal Medicine 12/27/23 Chrissy Hector MD [address] [place] [address] Hematology/Oncology 12/27/23 [employer] Receiver Relationship Specialty Start Date End Date Andrea Golden DO [address] [place] [address] PCP - General Internal Medicine 12/27/23 Jones Ace MD [address] [place] [address] Internal Medicine 12/27/23 Chrissy Hector MD [address] [place] [facility] [place] [address] Hematology/Oncology 12/27/23 [employer] Receiver Relationship Specialty Start Date End Date Andrea Golden DO PCP - General Internal Medicine 08/27/22 Goals [...] or prosecute any alcohol or drug abuse patient.[facility] the event this information is protected by the Federal Confidentiality of Alcohol and Drug Abuse Patient Records regulations: The Federal rules restrict any use of the information to criminally investigate or prosecute any alcohol or drug abuse patient.[facility] the event this information is protected by the Federal Confidentiality of Alcohol and Drug Abuse Patient Records regulations: The Federal rules restrict any use of the information to criminally investigate or prosecute any alcohol or drug abuse patient.[facility] the event this information is protected by the Federal Confidentiality of Alcohol and Drug Abuse Patient Records regulations: The Federal rules restrict any use of the information to criminally investigate or prosecute any alcohol or drug abuse patient.[facility] the event this information is protected by the Federal Confidentiality of Alcohol and Drug Abuse Patient Records regulations: The Federal rules restrict any use of the information to criminally investigate or prosecute any alcohol or drug abuse patient.[facility] the event this information is protected by the Federal Confidentiality of Alcohol and Drug Abuse Patient Records regulations: The Federal rules restrict any use of the information to criminally investigate or prosecute any alcohol or drug abuse patient.[facility] the event this information is protected by the Federal Confidentiality of Alcohol and Drug Abuse Patient Records regulations: The Federal rules restrict any use of the information to criminally investigate or prosecute any alcohol or drug abuse patient.[facility] the event this information is protected by the Federal Confidentiality of Alcohol and Drug Abuse Patient Records regulations: The Federal rules restrict any use of the information to criminally investigate or prosecute any alcohol or drug abuse patient.[facility] the event this information is protected by the Federal Confidentiality of Alcohol and Drug Abuse Patient Records regulations: The Federal rules restrict any use of the information to criminally investigate or prosecute any alcohol or drug abuse patient.[facility] the event this information is protected by the Federal Confidentiality of Alcohol and Drug Abuse Patient Records regulations: The Federal rules restrict any use of the information to criminally investigate or prosecute any alcohol or drug abuse patient.[facility] the event this information is protected by the Federal Confidentiality of Alcohol and Drug Abuse Patient Records regulations: The Federal rules restrict any use of the information to criminally investigate or prosecute any alcohol or drug abuse patient.[facility] the event this information is protected by the Federal Confidentiality of Alcohol and Drug Abuse Patient Records regulations: The Federal rules restrict any use of the information to criminally investigate or prosecute any alcohol or drug abuse patient.[facility] the event this information is protected by the Federal Confidentiality of Alcohol and Drug Abuse Patient Records regulations: The Federal rules restrict any use of the information to criminally investigate or prosecute any alcohol or drug abuse patient.[facility] FOR RECORDS PERTAINING TO PATIENTS WHO ARE [...] BE BASED ON THE PRIMARY CLINICAL RECORDS. [facility] [employer] [facility]. provides no warranty or guarantee of the accuracy or completeness of information in this document.
== END 2024-12-22 10:28 | disposition home or self-care (01) ==
LOC: RAD 10:27
PROVIDERS: PCP Internal Medicine; Visit Provider Internal Medicine
DX: M54.50 Low back pain, unspecified (principal); M47.816 Spondylosis without myelopathy or radiculopathy, lumbar region; M85.88 Other specified disorders of bone density and structure, other site; M51.369 Other intervertebral disc degeneration, lumbar region without mention of lumbar back pain or lower extremity pain
CPT/HCPCS: 72114

== ENCOUNTER 2024-12-29 09:47 | Outpatient (OUT) | payer MEDICARE, OTHER, SELFPAY ==
--- NOTE | 2024-12-29 09:52 | MR_ITS ---
[address] [address] Patient Name: SIA ALEXANDER MRN: [id number] date: 1950 Sex: F Assigned Patient Location: MRI Current Patient Location: MRI Accession/Order Number: [id number] Exam Date: 12/29/2024 10:00 Report Date: 12/29/2024 11:17 At the request of: CHUNG GOLDEN DO Procedure: MR lumbar spine wo con MRI LUMBAR SPINE WITHOUT CONTRAST CLINICAL DATA: Low back pain for the past month. No injury. COMPARISON: Plain films 12/22/[address] 05/20/2023 Multiecho imaging in the axial and sagittal plane was performed without contrast. There is slight reverse S-shaped thoracolumbar scoliotic curvature. Alignment is maintained on the sagittal sequences. There are no acute lumbar compression fractures or marrow edema. There are mild degenerative endplate signal changes and spurring. The conus medullaris terminates at L1 and is normal in size and signal. No paraspinal soft tissue abnormalities are present. At T12-L1, there is no disc disease or stenosis. At L1-2, there is slight loss of disc height. Minor annular disc bulging is present with slight thecal sac effacement. There is asymmetric endplate spurring laterally on the left. The neuroforamen are patent. At L2-3, is mild loss of disc height. There is minor annular disc bulging and asymmetric endplate spurring that extends laterally to the left. There is subtle thecal sac effacement. The right neural foramen is patent. There is mild to moderate foraminal encroachment on the left. At L3-4, there is slight narrowing of the disc space. There is mild annular disc bulging, greater toward the neural foramen and extending laterally. There is endplate spurring, greater laterally on the left. There is minimal thecal sac effacement. There is minor right and mild to moderate left foraminal encroachment. At L4-5, there is minimal annular disc bulging, greater toward the neural foramen. There is mild bilateral facet hypertrophy. There is subtle thecal sac effacement. There is mild inferior foraminal encroachment, left greater than right. At the lumbosacral junction, there is asymmetric disco-osteophytic bulging at the right neural foramen and extending laterally. There is minimal facet disease. No thecal sac effacement is present. There is at mild to moderate right foraminal impingement. The left neural foramen is patent. MR/MR lumbar spine wo con IMPRESSION: SCOLIOSIS. MILD DISCOVERTEBRAL DEGENERATIVE CHANGES WITH PREDOMINANTLY FORAMINAL ENCROACHMENT, OUTLINED ABOVE. Impression dictated by: Noemí Robin M.D. 12/29/2024 11:17 AM Dictation Location: [place] [address] Electronically authenticated by: [id number] Y Date: 12/29/2024 11:17
--- OUTSIDE RECORDS SUMMARY | 2024-12-29 09:53 | XMS_ITS | CCD ---
Author Organization [facility] Care Team Providers Care [address] [facility] [address] Name Role Phone Espinoza Ruiz Unavailable ANDREA GOLDEN Primary Care Physician [phone] Andrea Golden Unavailable Luma Chirinos Unavailable PABLO, [...] MAHER Referring Unavailable Unavailable [facility] LUMA Mccain Attending Unavailable DARLINE PEREIRA W Referring Unavailable Tera VILLEGAS, Jones Talthang Unavailable [phone] Krunal VILLEGAS, Chrissy Unavailable Andrea Golden DO Primary Care Provider Andrea Golden MD Primary Care Provider MoHai hoodd AJose Attending Unavailable Mouchli, Mohamad A. Attending Unavailable Mouchli, Mohamad A. Attending Unavailable Mouchli, Mohamad A. Attending Unavailable Mouchli, Mohamad A. Attending Unavailable Lue, Asuncion M. Attending Unavailable Lue, Asuncion M. Attending Unavailable Lue, Asuncion M. Attending Unavailable Mouchli, Mohamad A. Attending Unavailable Mouchli, Mohamad A. Referring Unavailable Mouchli, Mohamad A. Admitting Unavailable Timmis, Jeanette H Admitting Unavailable Timmis, Jeanette H Attending Unavailable Timmis, Jeanette H Referring Unavailable Mouchli, Mohamad A. Attending [...] Asuncion M. Admitting Unavailable Lue, Asuncion M. Admitting Unavailable Lue, Asuncion M. Attending Unavailable Lue, Asuncion M. Referring Unavailable Lue, Asuncion M. Referring Unavailable Lue, Asuncion M. Attending Unavailable Lue, Asuncion M. Admitting Unavailable Jones Ace MD Unavailable JONES ACE Referring Unavailable KASEY FALLON Attending Unavailable ANDREA GOLDEN Primary Care Unavailable ANDREA GOLDEN Primary Care Unavailable LUZ ELENA FRANKLIN Attending Unavailable KASEY FALLON Referring Unavailable KASEY FALLON Referring Unavailable Andrea Golden DO Primary Care Provider Lue, Asuncion MJose Referring Unavailable Lue, Asuncion MJose Attending Unavailable Lue, Asuncion MJose Admitting Unavailable Del Nettles Attending Unavailable Del Nettles Attending Unavailable Asuncion Buchanan Attending Unavailable Andrea Golden DO Primary Care Provider Abe Mojica DO Attending Provider Andrea Golden DO Attending Provider [phone] [place] BURNS Attending Unavailable CHARITO VASQUEZ Attending Unavailable RAMCHARITO CHACON Attending Unavailable MARSHA LAL Attending Unavailable CHARITO VASQUEZ Attending Unavailable Allergies Allergy Classification Reported Allergen(s) Allergy Type Date of Onset Reaction(s) Facility (20 sources) Amoxicillin; Translations: [AMOXICILLIN] Drug Allergy 10-22-19 19 Rash, Unknown, Other: See Comments [facility] (20 sources) Sulfacetamide / Sulfur Drug Allergy Unknown [facility] Other (20 sources) idp dye Propensity to adverse reactions 06-21-19 24 Unknown, Unknown Reaction [facility] (20 sources) Sulfonamides (Antibiotic); Translations: [SULFA (SULFONAMIDE ANTIBIOTICS)] Allergy to substance 12-08-19 08 Rash, Unknown [facility] (20 sources) wasp venom; Translations: [WASP VENOM] Allergy to substance 10-22-19 19 Anaphylaxis [facility] (10 sources) bee venom protein (honey bee); Translations: [BEE VENOM PROTEIN (HONEY BEE)] Allergy to substance 10-22-19 19 Anaphylaxis [facility] (20 sources) Iodinated Contrast Media; Translations: [IODINATED CONTRAST MEDIA] Allergy to substance 12-08-19 08 Other, Shortness of breath, Unknown, Anaphylaxis, Hives [facility] (20 sources) Bee/Wasp/Ant venom; Translations: [Bee Stings] Drug allergy Dyspnea (finding), Weal (disorder) [facility] [place] (20 sources) Contrast media; Translations: [contrast media (iodine-based)] Drug allergy 12-08-19 08 Dyspnea (finding), Weal (disorder) [facility] [place] (20 sources) Iodine; Translations: [iodine] Drug Allergy 01-15-20 23 Unknown (qualifier value), Unknown, Anaphylaxis [facility] (20 sources) Penicillin; Translations: [penicillin] Drug Allergy 09-14-19 24 Eruption of skin (disorder), Rash [facility] [place] (20 sources) Sulfonamides (Antibiotic); Translations: [sulfa drugs] Drug allergy Angioedema (disorder) [facility] (1 source) bee venom Drug allergy (disorder) [facility] (1 source) Iodine (And Iodine Containting Drugs) Drug allergy (disorder) 01-19-20 15 [facility] (6 sources) Penicillins Drug allergy (disorder) 06-21-19 24 Unknown Reaction [facility] (1 source) Sulfonamides (Antibiotic) Drug allergy (disorder) 03-18-18 56 [facility] (2 sources) Iodine / Sodium Iodide Drug Allergy Unknown [facility] Other (18 sources) Substance with penicillin structure and antibacterial mechanism of action (substance) Drug allergy Unknown [facility] Other (20 sources) Substance with sulfonamide structure and antibacterial mechanism of action (substance) Drug allergy 12-08-19 08 Unknown [facility] Other (2 sources) Allergies Reconciled Propensity to adverse reactions Unknown [facility] Other (2 sources) patient allergy list reviewed by nurse or physicia Propensity to adverse reactions 09-25-19 Comment:Done [facility] Other (13 sources) Penicillin G Drug Allergy 01-15-[address] [facility] (5 sources) Sulfacetamide Drug Allergy 06-21-19 24 Unknown Reaction [facility] (5 sources) Sulfur Drug Allergy 06-21-19 24 Unknown Reaction [facility] (4 sources) SULFACETAMIDE [id number]; Translations: [SULFACETAMIDE [id number]] Propensity to adverse reactions to drug (disorder) 09-14-19 24 Unknown [facility] Repository (1 source) Contrast media; Translations: [CONTRAST DYE] Propensity to adverse reactions to drug (disorder) 12-08-19 [facility] Medications Current Medications Medication Drug [...] mouth every 6 hours as needed. Active [id number] 200 actuat albuterol 0.09 mg/actuat metered dose inhaler (20 sources) beta2-Adrenergic Agonist Start: 06-01-2024 Albuterol Sulfate 90 mcg/actuation HFA aerosol inhaler Active 0 .ROUTE .COMPLEX 25.5 June 01, 2024 8:50am USE 2 INHALATIONS ORALLY EVERY 4 HOURS NEEDED FOR COUGH OR SHORTNESS OF BREATH Complies with drug therapy Start: 09-02-2019 take 2 puff(s) by in halation every four hours ProAir HFA 90 mcg/inh inhalation aerosol 2 puff(s), Inhalation, q4hr Shortness of breath or wheezing, Refill(s) 0 Start Date: 09/02/19 Status: Ordered Start: 10-21-2018 End: 06-01-2024 Albuterol Sulfate 90 mcg/act uation HFA aerosol inhaler Discontinued 2 PUFF INHALATION As Directed as needed for Shortness Of Breath Or Wheezing October 21, 2018 12:00am June 01, 2024 8:50am albuterol HFA 90 mcg/act inhaler Inhale 2 [...] mg oral tablet (20 sources) Bisphosphonate Start: 12-09-2024 take 1 tablet by mouth every week Alendronate 70 mg tablet Active 70 MG PO every week 12 December 09, 2024 7:19am Complies with drug therapy Start: 01-09-2024 End: 12-09-2024 Alendronate 70 mg tablet Discontinued 0 .ROUTE .COMPLEX January 09, 2024 12:33pm December 09, 2024 7:20am TAKE 1 TABLET ONCE WEEKLY 30 MINUTES BEFORE THE FIRST FOOD, BEVERAGE OR MEDICINE OF THE DAY WITH PLAIN WATER Start: 10-21-2018 End: 01-09-2024 take 1 tablet by mouth every week Alendronate 70 mg tablet Discontinued 70 MG PO every week October 21, 2018 12:00am January 09, 2024 12:33pm take 1 tablet by grzegorz th once daily Fosamax 70 MG tablet 1 tablet 30 minutes before the first food, beverage or medicine of the day with plain water Orally for 30 day(s) Active amLODIPine 5 mg oral tablet (20 sources) Dihydropyridine Calcium Channel Beau Start: 04-27-2024 Amlodipine 5 mg tablet Active 0 .ROUTE .COMPLEX April 27, 2024 10:06am TAKE 1 TABLET DAILY Complies with drug therapy Start: 02-20-2023 End: 04-27-2024 amLODIPine (Norvasc) 5 MG ta blet Refills(s) 0 02/20/2023 Active aspirin 325 mg oral tablet (8 sources) Platelet Aggregation Inhibitor, Nonsteroidal Anti-inflammatory Drug aspirin 325 mg cap T kacey by mouth. Active aspirin 81 mg EC tablet once every 24 hours. Active aspirin 770 mg / caffeine 60 mg / orphenadrine citrate 50 mg oral tablet (6 sources) Platelet Aggregation Inhibitor, Nonsteroidal Anti-inflammatory Drug, Muscle Relaxant, Central Nervous System Stimulant, Methylxanthine Start: 10-21-2018 take 0.5 tablet by mouth four times daily as needed for headache Uvndpbigcflz-Ubj-Zhogycse 50-770-60 mg Tablet Active 0.5 TAB PO Four times daily as needed for Headache October 21, 2018 12:00am Complies with drug therapy Astepro 205.5 MCG/SPRAY (1 source) Start: 02-18-2023 take 2 spray(s) nasal route twice daily Astepro 205.5 MCG/SPRAY 2 sprays in each nostril Nasally bid for 30 days Feb, Active atorvastatin 10 mg oral tablet (20 sources) HMG-CoA Reductase Inhibitor Start: 01-27-2024 Atorvastatin 10 mg tablet Active 0 .ROUTE .COMPLEX January 27, 2024 2:00pm TAKE 1 TABLET EVERY EVENING Complies with drug therapy Start: 10-21-2018 End: 01-27-2024 take 1 tablet by mouth once daily Atorvastatin 10 mg tablet Discontinued 10 MG PO Daily October 21, 2018 12:00am January 27, 2024 2:00pm azelastine hydrochloride 0.137 mg/actuat metered dose nasal [...] in each nostril Nasally bid Feb, Active azithromycin 500 mg oral tablet (20 sources) Macrolide Antimicrobial Start: 10-13-2024 take 1 tablet by mouth once daily Azithromycin 500 mg tablet Active 500 MG PO Daily 3 October 13, 2024 12:00am Complies with drug therapy Start: 12-12-2022 Azithromycin 2 50 MG as directed Orally daily for 5 days Nov, Not-Taking/PRN Start: 11-01-2022 Azithromycin 2 50 MG 2 tablet on the first day, then 1 tablet daily for 4 days Orally Once a day for 5 day(s) Oct, Not-Taking/PRN betamethasone 0.001 mg/mg topical ointment (20 sources) [...] TOPICAL As Directed October 21, 2018 12:00am Complies with drug therapy Start: 10-21-2018 Betamethasone Valerate Active 1 APPLIC [...] Status: Ordered budesonide 0.25 mg/ml inhalation suspension (12 sources) Corticosteroid Start: 08-20-2023 End: 08-19-2024 take 2 mL by mouth in the morning budesonide (Pulmicort) 0.5 MG/2ML nebulizer solution Indications: Chronic maxillary sinusitis Take 2 mL (0.5 mg) by nebulization in the morning. Rinse mouth with water after use to reduce aftertaste and incidence of candidiasis. Do not swallow.. 60 mL 11 08/20/2023 Active calcium carbonate 600 mg chewable tablet (13 sources) Start: 09-04-2019 take 1 tablet by mouth three times daily calcium carbonate 600 mg oral tablet, chewable 600 mg = 1 tab(s), Chewed, TID, Refills(s) 0 Start Date: 09/04/19 Status: Ordered Start: 10-21-2018 End: 02-05-2024 Calcium Carbonate (Tums) 300 mg (750 mg) Tablet,Chewable Discontinued 2 TAB PO As Directed as needed for GERD October 21, 2018 12:00am February 05, 2024 9:43am Start: 10-21-2018 End: 02-05-2024 take 1 tablet by mouth three times daily Calcium Carbonate (Calcium 500) 500 mg calcium (1,250 mg) Tablet,Chewable Discontinued 500 MG PO Three times daily October 21, 2018 12:00am February 05, 2024 9:43am Calcium Carbonate / vitamin D3 (7 sources) calcium carbonate/vitamin D3 (CALCIUM + D ORAL) Take by mouth. Active Calcium with Vitamin D and Minerals oral tablet (6 sources) Start: take 1 tablet by mouth twice daily Calcium with Vitamin D and Minerals oral tablet tab(s), Oral, BID, Refill(s) 0 Start Date: 02/05/24 Status: Ordered celecoxib 200 mg oral capsule (1 source) Nonsteroidal Anti-inflammatory Drug Start: take 1 capsule by mouth once daily Celecoxib (Celebrex) 200 mg capsule Active 200 MG PO Daily December 22, 2024 12:00am Complies with drug therapy cephalexin 500 mg oral capsule (1 source) Cephalosporin Antibacterial Start: End: take 1 capsule by mouth every twelve hours Keflex 500 mg Cap 500 mg = 1 cap(s), Oral, q12hr, Start the morning of procedure, X 1 day(s), # 2 cap(s), Refills(s) 0, Pharmacy: [id number], 158, cm, 02/05/24 11:08:00 EST, Height/Length [...] allergies Active cholecalciferol 0.05 mg oral capsule (14 sources) Vitamin D Start: 05-18-2022 take 1 [...] Daily, # 30 EA, Refills(s) 3, Pharmacy: [id number], 158, cm, 08/05/24 14:23:00 EDT, Height/Length [...] day(s), # 2 tab(s), Refills(s) 0, Pharmacy: [id number], 158, cm, 03/24/24 11:38:00 EST, Height/Length [...] guidelines. 1 Each 0 10/31/2023 11/01/2023 Active [id number] 0.3 ml EPINEPHrine 1 mg/ml auto-injector (20 sources) alpha-Adrenergic Agonist, beta-Adrenergic Agonist, Catecholamine Start: 02-05-2024 Epinephrine 0.3 mg/0.3 mL auto-injector Active 0.3 MG IM every 5 to 15 minutes as needed February 05, 2024 1:00am do not exceed 3 doses per episode Complies with drug therapy Start: 09-04-2019 inject 0.3 mg by int [...] Discontinued 0 .ROUTE .COMPLEX January 27, 2024 1:59pm February 05, 2024 10:02am TAKE 1 TABLET AT BEDTIME Start: 02-20-2023 [...] 20 MG PO Daily at bedtime 90 February 05, 2024 10:02am Complies with drug therapy fluocinonide 0.5 mg/ml topical solution (11 sources) [...] SPRAY INTRANASAL Twice daily February 05, 2024 1:00am into each nostril Complies with drug therapy Start: 09-23-2023 End: 12-30-2023 take 1 spray(s) [...] Start: 09-02-2019 fluticasone 0. 05 mg/inh Nasal Thomson 2 spray(s), Nasal, Daily, Refill(s) 0 Start Date: 09/02/19 Status: Ordered Start: 10-21-2018 End: 05-23-2023 Fluticasone Propionate 50 mcg/actuation spray,suspension Active 2 SPRAY INTRANASAL Daily May 23, 2023 5:44pm Complies with drug therapy fluticasone prop ionate (XHANCE) 93 mcg/actuation nasal [...] Furoate-Vilanterol (20 sources) Corticosteroid, beta2-Adrenergic Agonist Start: 04-20-2024 Fluticasone Furoate-Vilanter ol (Breo Ellipta) 200-25 mcg/dose blister with device Active 1 INH INHALATION Daily 90 April 20, 2024 10:23am Complies with drug therapy Start: 02-05-2024 End: 04-20-2024 Fluticasone Furoate-Vilanter ol (Breo Ellipta) 200-25 mcg/dose blister with device Discontinued 1 INH INHALATION Daily February 05, 2024 1:00am April 20, 2024 10:24am Start: 02-05-2024 Fluticasone Fu roate-Vilanterol (Breo Ellipta) 200-25 mcg/dose blister with device Active 1 INH INHALATION Daily February 05, 2024 12:00am Start: 01-25-2023 Breo Ellipta 2 00-25 mcg/dose inhaler 01/25/2023 Active Start: 10-21-2018 End: 02-05-2024 take 1 puff(s) by inhalation once daily Fluticasone Furoate-Vilanterol (Breo Ellipta) 200-25 mcg/dose blister with device Discontinued 1 PUFF INHALATION Daily October 21, 2018 12:00am February 05, 2024 9:44am Start: 10-21-2018 End: 02-05-2024 take 1 puff(s) [...] daily Active fluticasone 0.05 mg/inh Nasa l Thomson (19 sources) Start: 09-02-2019 fluticasone 0. 05 mg/inh Nasal Thomson 2 spray(s), Nasal, Daily, Refill(s) 0 Start Date: 09/02/19 Status: Ordered Repeat number: 1 Start: 09-02-2019 fluticasone 0. 05 mg/inh Nasal Thomson 2 spray(s), Nasal, Daily, Refill(s) 0 Start [...] oral tablet (5 sources) Quinolone Antimicrobial Start: 024 take 1 tablet by mouth every twenty-four [...] Active 0 .ROUTE .COMPLEX January 27, 2024 1:59pm TAKE 1 TABLET DAILY ON AN EMPTY STOMACH (REPLACING 88MCG) Complies with drug therapy Start: 09-04-2019 take 1 tablet by grzegorz th once daily levothyroxine 88 mcg (0.088 mg) Tab 88 microgram = 1 tab(s), Oral, Daily, Refills(s) 0, Thyroid Start Date: 09/04/19 Status: Ordered Start: 12-08-2007 End: 01-27-2024 take 1 tablet by mouth once daily Levothyroxine 100 mcg Tablet Discontinued 100 MCG PO Daily October 21, 2018 12:00am January 27, 2024 2:00pm levothyroxine (S ynthroid, Levoxyl) 88 MCG tablet [...] Hr Discontinued 1 TAB PO Daily October 21, 2018 12:00am February 05, 2024 9:44am End: 04-30-2024 take 1 tablet by mouth [...] Jan, Active metoclopramide 10 mg oral tablet (14 sources) Dopamine-2 Receptor Antagonist Start: 07-12-2023 take [...] APPLICATOR VAGINAL Twice daily February 05, 2024 1:00am Complies with drug therapy metroNIDAZOLE (M ETROGEL) 0.75 % Vaginal Gel [...] Daily, # 30 tab(s), Refills(s) 6, Pharmacy: [facility] #[id number], 158, cm, 12/01/21 9:55:00 EDT, Height/Length Dosing, 68, kg, 12/01/21 9:55:00 EDT, Weight Dosing Start Date: 12/01/21 Status: Ordered montelukast 10 mg oral tablet (20 sources) Leukotriene Receptor Antagonist Start: 05-01-2024 Montelukast 10 mg tablet Active 0 .ROUTE .COMPLEX 90 May 01, 2024 2:14pm TAKE 1 TABLET DAILY Complies with drug therapy Start: 12-26-2022 End: 05-01-2024 take 1 tablet by mouth once daily in the evening montelukast 10 mg Tab 10 mg = 1 tab(s), Oral, qPM, # 90 tab(s), Refills(s) 0, Asthma Start Date: 02/05/24 Status: Ordered Quantity: 90.0 Unit: tab(s) Repeat number: 1 Multi Vitamins oral tablet (8 sources) Start: [...] nitrofurantoin, macrocrystal s 100 mg oral capsule (9 sources) Nitrofuran Antibacterial S t a r t : 1 1 - 2 0 - 2 0 2 4 take 1 capsule by mouth once daily at bedtime Nitrofurantoin Macrocrystal 100 mg capsule Active 100 MG PO Daily at bedtime February 05, 2024 1:00am after intercourse Complies with drug therapy nitrofurantoin m acrocrystal (MACRODANTIN) 100 mg capsule 100 mg by ORAL/FEEDING TUBE route. Active nutritional supplement (RADHA, WITH COLLAGEN,) 7-7-1.5 gram pwpk (1 source) Start: 07-27-2024 nutritional [...] spasms, # 30 tab(s), Refills(s) 0, Pharmacy: [id number], 158, cm, 03/24/24 11:38:00 EST, Height/Length Dosing, 75.5, kg, 03/24/24 11:38:00 EST, Weight Dosing Start Date: 04/07/24 Status: Ordered pain off aspirin (1 source) Start: 04-13-2021 pain off aspir in pain off aspirin Start Date: 04/13/21 Status: Ordered pantoprazole 40 mg delayed release oral tablet (20 sources) Proton Pump Inhibitor Start: 01-27-2024 Pantoprazole 40 mg tablet,delayed release (DR/EC) Active 0 .ROUTE .COMPLEX January 27, 2024 1:59pm TAKE 1 TABLET DAILY ON AN EMPTY STOMACH FOLLOWED IN 30 MINUTES BY BREAKFAST Complies with drug therapy Start: 12-11-2019 End: 01-27-2024 take 1 tablet by mouth in the morning pantoprazole (ProtoNix) 40 MG EC tablet Indications: Gastroesophageal reflux disease without esophagitis Take 1 tablet (40 mg) by mouth in the morning and 1 tablet (40 mg) before bedtime. Do not crush, chew, or split.. 60 tablet 09/23/2023 Active take 1 tablet by grzegorz th twice daily pantoprazole DR (PROTONIX) 40 mg tablet Take 40 mg by mouth two times a day. Active Pantoprazole 40 mg tablet,delayed release (DR/EC) (1 source) Start: 01-27-2024 Pantoprazole 4 0 mg tablet,delayed release (DR/EC) Active 0 .ROUTE .COMPLEX January 27, 2024 12:59pm TAKE 1 TABLET DAILY ON AN EMPTY STOMACH FOLLOWED IN 30 MINUTES BY BREAKFAST polyethylene glycol 3350 [id number] mg / potassium chloride 2970 mg / sodium bicarbonate 6740 mg / sodium chloride 5860 mg / sodium sulfate 93665 mg powder for oral solution (7 sources) [...] 150 MG PO Daily February 05, 2024 1:00am Complies with drug therapy Start: 03-08-2023 take 150 mg by mouth [...] ontinued 20 MG PO As Directed June 21, 2023 12:00am February 05, 2024 9:45am 1 tab tid w/ food x 3 [...] day(s), # 112 tab(s), Refills(s) 0, Pharmacy: [id number], 158, cm, 12/10/24 8:44:00 EDT, Height/Length [...] days Feb, Active vit A/vit C/biotin/zinc/yazmin er (SBEJ-GOQL-BQBE,VIT A,C-BIOTIN, ORAL) (7 sources) vit A/vit C/biot in/zinc/copper ([id number],VIT A,C-BIOTIN, ORAL) Take by mouth. Active Vitamin [...] mg / caffeine 65 mg oral tablet (6 sources) Platelet Aggregation Inhibitor, Nonsteroidal Anti-inflammatory Drug, Central Nervous System Stimulant, Methylxanthine Start: 10-21-2018 End: 02-05-2024 Aspirin-Acetamino phen-Caffeine (Pain-Off) 250-250-65 mg Tablet Discontinued 2 TAB PO As Directed as needed for Headache October 21, 2018 12:00am February 05, 2024 9:42am acetaminophen 300 mg / butalbital 50 mg / caffeine 40 mg oral capsule (8 sources) Barbiturate, Central Nervous System Stimulant, Methylxanthine End: 12-27-2023 Butalbital-Acetam inophen-Caff (FIORICET) 50-300-40 mg cap Take by mouth. 12/27/2023 Discontinued (Other) benazepril hydrochloride 10 mg oral tablet (20 sources) Angiotensin Converting Enzyme Inhibitor Start: 10-21-2018 End: 02-05-2024 take 1 tablet by mouth once daily Benazepril 10 mg tablet Discontinued 10 MG PO Daily October 21, 2018 12:00am February 05, 2024 9:42am benzonatate 100 mg oral capsule (18 sources) [...] oral solution (20 sources) Opioid Agonist Start: 06-21-2023 End: 04-30-2024 take 5 mL by mouth three times daily as needed guaiFENesin-codeine (Robitussin-AC) 100-10 MG/5ML syrup Take 5 mL by mouth 3 (three) times a day as needed 06/21/2023 04/30/2024 Discontinued Start: 06-21-2023 codeine-guaife nesin (Robitussin-AC) 10-100 mg/5 mL syrup Every 6 hours 06/21/2023 Active Start: 06-19-2023 End: 02-05-2024 take 1 mL by mouth every six hours as needed for cough Codeine-Guaifenesin 10-100 mg/5 mL liquid Discontinued 5 ML PO Every 6 hours as needed for cough 200 August 09, 2023 4:54pm February 05, 2024 9:43am Start: 06-19-2023 End: 08-09-2023 take 1 mL [...] Discontinued 1 DROPS OPHTHALMIC Twice daily October 21, 2018 12:00am February 05, 2024 9:43am End: 12-27-2023 take 1 drop(s) into the eye(s) twice daily cycloSPORINE (RESTASIS) 0.05 % ophthalmic emulsion 1 Drop twice daily. 12/27/2023 Discontinued (Other) doxycycline hyclate 100 mg oral capsule (18 sources) Tetracycline-class Drug Start: 06-21-2023 End: 02-05-2024 take 1 capsule by mouth twice daily Doxycycline Hyclate 100 mg capsule Discontinued 100 MG PO Twice daily 04 01August 20, 2023 12:00am February 05, 2024 9:43am take 1 tablet by mouth in the [...] apply pea sized amount to urethra 2x/wk, [facility], 158, cm, 02/05/24 11:08:00 EST, Height/Length Dosing, 62, kg, 02/05/24 11:08:00 EST, Weight Dosing Start Date: 02/05/24 Status: Ordered Quantity: 42.5 Unit: g Repeat number: 1 Start: 02-05-2024 Estradiol 0.01 % (0.1 mg/gram) cream Active 1 APPLICATOR VAGINAL Twice daily February 05, 2024 1:00am Complies with drug therapy Start: 02-20-2023 estradiol (Est race) 0.1 MG/GM vaginal cream See Instructions, 42.5 gm, Refill(s) 0, apply pea sized amount to urethra 2x/wk, [facility], 158, cm, 02/20/23 8:48:00 EST, Height/Length Dosing, 68.5, kg, 02/20/23 8:48:00 EST, Weight Dosing 02/20/2023 Active Start: 02-20-2023 estradiol 0.1 mg/g Vag Crm See Instructions, 42.5 gm, Refill(s) 0, apply pea sized amount to urethra 2x/wk, [facility], [facility], cm, 02/20/23 8:48:00 EST, Height/Length Dosing, 68.5, kg, 02/20/23 8:48:00 EST, Weight Dosing Start Date: 02/20/23 Status: Ordered Start: 04-13-2021 estradiol 0.1 mg/g vaginal cream See Instructions, Apply pea sized amount to external urethral 3 times a week for 2 weeks (at bedtime), then twice a week after for maintenance, # 42.5 gm, Refills(s) 1, Pharmacy: [facility], 158, cm, 04/13/21 9:47:00 EST, Height/Length Do... Start Date: 04/13/21 Status: Ordered Start: 10-21-2018 End: 02-05-2024 Estradiol (Yuvafem) 10 mcg T ablet Discontinued 10 MCG Twice a Week October 21, 2018 12:00am February 05, 2024 9:44am Start: 10-21-2018 End: 10-21-2018 Estradiol 10 mcg tablet Disc ontinued October 21, 2018 12:00am October 21, 2018 3:20pm Estradiol (VAGIF EM) 10 mcg tab vaginal tablet Use 10 mcg vaginally once daily. Active fluconazole 150 mg oral tablet (7 sources) Azole Antifungal End: 12-27-2023 take 1 tablet by mouth once fluconazole (DIFLUCAN) 150 mg tablet Take 150 mg by mouth one time only. 12/27/2023 Discontinued (Other) nabumetone 750 mg oral tablet (6 sources) Nonsteroidal Anti-inflammatory Drug Start: 10-21-2018 End: 02-05-2024 take 1 tablet by mouth once daily Nabumetone 750 mg Tablet Discontinued 1500 MG PO Daily October 21, 2018 12:00am February 05, 2024 9:45am Start: 10-21-2018 take 1500 mg by mout [...] infection., # 30 cap(s), Refills(s) 3, Pharmacy: [facility], 158, cm, 08/05/24 14:23:00 EDT, Height/Length Dosing, 77.2, kg, 08/05/24 14:23:00 EDT, Weight Dosing Start Date: 10/28/24 Status: Ordered Quantity: 30.0 Unit: cap(s) Repeat number: 4 Start: 12-01-2021 Macrobid 100 m g Cap 100 mg = 1 cap(s), Oral, As Directed, take 1 tablet within 1 hour before or after intercourse to prevent infection., # 30 cap(s), Refills(s) 3, Pharmacy: [facility], 158, cm, 02/20/23 8:48:00 EST, Height/Length Dosing, 68.5, kg, 02/20/23 8:48:00 EST, Weight Dosing Start Date: 02/20/23 Status: Ordered omeprazole 40 mg delayed release oral capsule (20 sources) Proton Pump Inhibitor Start: 10-21-2018 End: 02-05-2024 take 1 capsule by mouth once daily Omeprazole 40 mg Capsule,Delayed Release(Dr/Ec) Discontinued 40 MG PO Daily October 21, 2018 12:00am February 05, 2024 9:45am psyllium 520 mg oral capsule (6 sources) Start: 10-21-2018 End: 02-05-2024 Psyllium Husk (Metamucil) 0.52 gram Capsule Discontinued 1 CAP PO Twice daily October 21, 2018 12:00am February 05, 2024 9:46am triamcinolone acetonide 40 mg/ml injectable suspension (20 [...] deficiency anemias Episodic Deficiency and other anemia (3 sources) Iron deficiency anemia; Translations: [Iron deficiency anemia, unspecified] Onset: 05-14-19 Episodic Deficiency and other anemia (3 sources) Anemia; Translations: [Anemia, unspecified] Onset: 05-29-19 Episodic Deficiency and other anemia (1 source) Iron deficiency anemia, unspecified; Translations: [Iron deficiency anemia, unspecified] 02-05-2024 Episodic Diseases of white blood cells (12 sources) Familial eosinophilia; 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 EHR Cmte Hemorrhoids (2 sources) Hemorrhoids; Translations: [Other hemorrhoids] Onset: 05-30-19 Episodic Inflammation; infection of eye (except that caused by tuberculosis or sexually transmitteddisease) (14 sources) Keratoconjunctivitis sicca; Translations: [Keratoconjunctivitis sicca, not specified as Sjogren's, bilateral] Onset: 01-15-20 23 01-14-2023 Chronic Intestinal obstruction without hernia (7 sources) Stricture of intestine; Translations: [Other intestinal [...] Onset: 08-06-19 25 Episodic Nonmalignant breast conditions (12 sources) Fibrocystic disease of breast; Translations: [Diffuse [...] osteoporosis] Onset: 04-09-19 Chronic Other acquired deformities (12 sources) Equinus contracture of the ankle; Translations: [Contracture, right ankle] Onset: 06-27-19 24 06-27-2023 Chronic Other aftercare (1 source) USP (current) use of aspirin; 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] Onset: 04-09-19 Episodic Other aftercare (3 sources) Other fci (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 therapy; Translations: [OTH GROUP HOME CURRENT DRUG THERAPY] Onset: 03-13-20 22 Episodic Other aftercare (1 source) Long-term current use of drug therapy; Translations: [Other fci (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 therapy] Episodic Other bone disease [...] of falling] Episodic Other lower respiratory disease (12 sources) Post-inflammatory pulmonary fibrosis; Translations: [Pulmonary fibrosis, [...] Overweight; Translations: [Overweight] Episodic Other skin disorders (14 sources) Lichen sclerosus et atrophicus; Translations: [Circumscribed scleroderma] Onset: 07-25-19 24 07-25-2023 Chronic Other upper respiratory disease (20 sources) Allergic rhinitis due to pollen; Translations: [Allergic rhinitis due to pollen] Onset: 06-27-19 24 08-31-2019 Chronic Other upper respiratory disease (2 sources) Seasonal allergic rhinitis; Translations: [Other seasonal allergic rhinitis] Onset: 06-12-19 18 Chronic Other upper respiratory disease (13 sources) Allergic rhinitis; Translations: [Allergic rhinitis, unspecified] [...] nonsteroidal anti-inflammatory drugs [NSAID], initial encounter] Onset: 08-06-19 25 08-05-2024 Episodic Regional enteritis and ulcerative colitis (12 sources) Ulcerative colitis; Translations: [Ulcerative colitis, unspecified, [...] (20 sources) Cervico-occipital neuralgia; Translations: [Occipital neuralgia] 12-22-2024 Episodic Sprains and strains (12 sources) Strain [...] Unclassified (5 sources) Lesion of urethra 04-22-2024 Past or Other [...] that caused by tuberculosis or sexually transmitteddisease) (14 sources) Blepharitis of upper and lower eyelids [...] Onset: 4 12-11-2019 Episodic Other gastrointestinal disorders (12 sources) Dysphagia; Translations: [Dysphagia, pharyngoesophageal phase] Onset: 4 06-27-2023 Episodic Other injuries and conditions due to external causes (12 sources) Aspiration into respiratory tract; Translations: [Unspecified foreign body in respiratory tract, part unspecified causing other injury, initial encounter] Onset: 4 07-25-2023 Episodic Other lower respiratory disease (17 sources) Chronic cough; Translations: [Chronic cough] Onset: 4 Episodic Other lower respiratory disease (12 sources) Lung field abnormal; Translations: [Other nonspecific [...] Onset: 5 Episodic Other upper respiratory disease (12 sources) Chronic hoarseness; Translations: [Dysphonia] Onset: 4 06-27-2023 Episodic Other upper respiratory disease (12 sources) Stridor; Translations: [Stridor] Onset: 4 06-27-2023 [...] GOLDEN DO This Is Your Medications List sucralfate (Carafate [...] spray) fluticasone nasal (fluticasone 0.05 mg/inh Nasal Thomson) fluticasone-vilanterol (Breo Ellipta 200 mcg-25 mcg/inh inhalation [...] fluticasone nasal (fluticasone 0.05 mg/ inh Nasal Thomson) 2 Sprays Nasal Inhalation Every day Contact [...] Contact pres (more content not included)... Normal [facility] Gastroenterology Office/Clin ic Noteon 12-10-2024 Gastroenterology Office/Clinic [...] treated with z-pack for GI bacteria at [place] back pain Review of Systems PHQ Score [...] day(s), # 112 tab(s), Refills(s) 0, Pharmacy: [facility], 158, cm, 12/10/24 8:44:00 EDT, Height/Length Dosing, 76.6, kg, 12/10/24 8:44:00 EDT, Weight Dosing Current tobacco non-user 1036F Most recent diastolic blood pressure <80 mm Hg 3078F Systolic BP <130 mm Hg (Most Recent) 3074F 2. Anemia (D64.9: Anemia, unspecified) Ordered: sucralfate, 1 gm = 1 tab(s), Oral, QID, X 28 day(s), # 112 tab(s), Refills(s) 0, Pharmacy: [facility], 158, cm, 12/10/24 8:44:00 EDT, Height/Length Dosing, 76.6, kg, 12/10/24 8:44:00 EDT, Weight Dosing Current tobacco non-user 1036F Most recent diastolic blood pressure <80 mm Hg 3078F Systolic BP <130 mm Hg (Most Recent) 3074F 3. 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 Normal [facility] Comment on above: Result Comment: Elec tronically Signed By: Tho VILLEGSA, Del Duckworth\.br\Date and Time Signed: 12/10/24 09:09 EDT Basophils Auto (Bld) [#/Vol] Ordered By: Abe Mojica on 10-02-2024 Basophils (Bld) [#/Vol] 0.0 10 3/uL 0.0-0.1 [facility] Basophils/100 WBC Auto (Bld) Ordered By: Abe Mojica on 10-02-2024 Basophils/100 WBC (Bld) 0.2 % 0.2-2.0 [facility] Eosinophils/100 WBC Auto (Bl d)Ordered By: Abe Mojica on 10-02-2024 Eosinophils/100 WBC (Bld) 1.1 % 0.9-7.0 [facility] Erythrocyte distribution wid th Auto (RBC) [Ratio]Ordered By: Abe Mojica on 10-02-2024 Erythrocyte distribution width (RBC) [Ratio] 12.5 % 11.0-15.0 [facility] Glomerular filtration rate ( GFR) estimation in non- AmericanOrdered By: Abe Mojica on 10-02-2024 GFR/1.73 sq M.predicted among non-blacks MDRD (S/P/Bld) [Vol rate/Area] mL/min/{1.73_m2} >=60 mL/min/1.7 3m 2 [facility] Hematocrit Auto (Bld) [Volum e fraction]Ordered By: Abe Mojica on 10-02-2024 Hematocrit (Bld) [Volume fraction] 37.4 % 36.0-48.0 [facility] Hemoglobin [Mass/volume] in BloodOrdered By: Abe Mojica on 10-02-2024 Hemoglobin (Bld) [Mass/Vol] 12.8 g/dL 12.0-16.0 [facility] Laboratory - Chemistry and C hemistry - challengeOrdered By: Abe Mojica on 10-02-2024 Calcium [Mass/Vol] 9.0 mg/dL 8.5-10.1 [facility] Chloride [Moles/Vol] 106 mmol/L 98-107 [facility] CO2 [Moles/Vol] 23.5 mmol/L 21.0-32.0 [facility] Creatinine [Mass/Vol] 0.81 mg/dL 0.55-1.02 [facility] GFR/1.73 sq M.predicted MDRD (S/P/Bld) [Vol rate/Area] mL/min/{1.73_m2} >=60 mL/min/1.7 3m 2 [facility] Glucose [Mass/Vol] 99 mg/dL 74-106 [facility] Potassium [Moles/Vol] 3.5 mmol/L 3.5-5.1 [facility] Sodium [Moles/Vol] 143 mmol/L 136-145 [facility] Urea nitrogen [Mass/Vol] 12.0 mg/dL 7.0-18.0 [facility] Urea nitrogen/Creatinine [Mass ratio] 14.8 mg/mg [facility] Laboratory - Hematology and Cell countsOrdered By: Abe Mojica on 10-02-2024 Immature granulocytes/100 WBC (Bld) 0.4 % 0.0-0.5 [facility] Leukocytes [#/volume] correc radha for nucleated erythrocytes in Blood by Automated counOrdered By: Abe Mojica on 10-02-2024 WBC corrected for nucl RBC Auto (Bld) [#/Vol] 9.6 10 3/uL 4.0-11.0 [facility] Lymphocytes Auto (Bld) [#/Vo l]Ordered By: Abe Mojica on 10-02-2024 Lymphocytes (Bld) [#/Vol] 1.1 10 3/uL Low 1.2-3.8 [facility] Lymphocytes/100 WBC Auto (Bl d)Ordered By: Abe Mojica on 10-02-2024 Lymphocytes/100 WBC (Bld) 11.2 % Low 20.5-60.0 [facility] MCH Auto (RBC) [Entitic mass ]Ordered By: Abe Mojica on 10-02-2024 MCH (RBC) [Entitic mass] 32.2 pg 26.7-34.0 [facility] MCHC Auto (RBC) [Mass/Vol]Or dered By: Abe Mojica on 10-02-2024 MCHC (RBC) [Mass/Vol] 34.2 g/dL 29.9-35.2 [facility] MCV Auto (RBC) [Entitic vol] Ordered By: Abe Mojica on 10-02-2024 MCV (RBC) [Entitic vol] 94.2 fL 81.0-99.0 F [facility] Monocytes Auto (Bld) [#/Vol] Ordered By: Abe Mojica on 10-02-2024 Monocytes (Bld) [#/Vol] 1.1 10 3/uL High 0.3-0.8 [facility] Monocytes/100 WBC Auto (Bld) Ordered By: Abe Mojica on 10-02-2024 Monocytes/100 WBC (Bld) 11.0 % 1.7-12.0 F [facility] Neutrophils Auto (Bld) [#/Vo l]Ordered By: Abe Mojica on 10-02-2024 Neutrophils (Bld) [#/Vol] 7.3 10 3/uL High 1.4-6.5 [facility] Neutrophils/100 WBC Auto (Bl d)Ordered By: Abe Mojica on 10-02-2024 Neutrophils/100 WBC (Bld) 76.1 % High 43.0-75.0 [facility] No Panel InformationOrdered By: Abe Mojica on 10-02-2024 Clostridium difficile (PCR)(LAB) Negative [facility] Eosinophils # (Auto) 0.1 10 3/uL 0.0-0.7 [facility] Immature Granulocyte # (Auto) 0.04 10 3/uL High 0.00-0.03 [facility] Platelet mean volume Auto (B ld) [Entitic vol]Ordered By: Abe Mojica on 10-02-2024 Platelet mean volume (Bld) [Entitic vol] 9.6 fL 9.5-13.5 [facility] Platelets Auto (Bld) [#/Vol] Ordered By: Abe Mojica on 10-02-2024 Platelets (Bld) [#/Vol] 299 10 3/uL 150-450 [facility] RBC Auto (Bld) [#/Vol]Ordere d By: Abe Mojica on 10-02-2024 RBC (Bld) [#/Vol] 3.97 10 6/uL Low 4.20-5.40 [facility] Serum or plasma anion gap de terminationOrdered By: Abe Mojica on 10-02-2024 Anion gap [Moles/Vol] 17.0 mmol/L [facility] Ambulatory Visit Summaryon 0 - Ambulatory Visit Summary Ambulatory Visi t Summary [...] spray) fluticasone nasal (fluticasone 0.05 mg/inh Nasal Thomson) fluticasone-vilanterol (Breo Ellipta 200 mcg-25 mcg/inh inhalation [...] cholecystectomy Post-cholecystectomy syndrome Refills: 3 Pickup at [facility] Unchanged albuterol (ProAir HFA 90 mcg/ [...] fluticasone nasal (fluticasone 0.05 mg/ inh Nasal Thomson) 2 Sprays Nasal Inhalation Every day Contact [...] or after (more content not included)... Normal [facility] Gastroenterology Office/Clin ic Noteon 08-05-2024 Gastroenterology Office/Clinic [...] Daily, # 30 EA, Refills(s) 3, Pharmacy: [facility], 158, cm, 08/05/24 14:23:00 EDT, Height/Length Dosing, 77.2, kg, 08/05/24 14:23:00 EDT, Weight Dosing 2. Hx of cholecystectomy, (Z90.49: Acquired absence of other specified parts of digestive tract)S/P cholecystectomy Ordered: cholestyramine, = 1 packet(s), Oral, Daily, # 30 EA, Refills(s) 3, Pharmacy: [facility], 158, cm, 08/05/24 14:23:00 EDT, Height/Length Dosing, 77.2, kg, 08/05/24 14:23:00 EDT, Weight Dosing 3. Adverse reaction to NSAIDs (T39.395A: Adverse effect of other nonsteroidal anti-inflammatory drugs [NSAID], initial encounter) Ordered: cholestyramine, = 1 packet(s), Oral, Daily, # 30 EA, Refills(s) 3, Pharmacy: [facility], 158, cm, 08/05/24 14:23:00 EDT, Height/Length Dosing, 77.2, kg, 08/05/24 14:23:00 EDT, Weight Dosing 5. Post-cholecystectomy syndro (more content not included)... [facility] Comment on above: Result Comment: Elec tronically Signed By: Tho VILLEGAS, eDl Duckworth\.br\Date and Time Signed: 08/05/24 14:45 EDT Reminderson 08-05-2024 Reminders Reminders From: Pat Martinez MA To: [facility] - Reminders/Recalls; Sent: 08/05/2024 13:08:13 EDT Show up: 05/16/2029 13:08:00 EST Subject: Ambulatory Reminder Due Date/Time: 07/13/2029 13:08:00 EDT Reminder/Recall 5 year colon 07/13/24 Dr Nettles [facility] ANES POSTPROC EVALon 025 ANES POSTPROC EVAL HNO ID: [id number] Author: LUZ ELENA FRANKLIN MD Service: ? [...] Scheduled Providers: Kasey Fallon MD; Rosaura Marie APRN.RETAIL ATTENDANT; Luz Elena Franklin MD Responsible Provider: Luz [...] July 13, 2024 TIME: 4:28 PM CSN: [id number] [facility] ANES PRE-OPon 07-13-2024 ANES PRE-OP HNO ID: [id number] Author: LUZ ELENA FRANKLIN MD Service: ? Author Type: Physician Type: Anesthesia Preprocedure Evaluation Filed: 07/13/2024 13:38 Note Text: ANESTHESIOLOGY DAY OF SURGERY NOTE : 1950 Procedure Information Date/Time: 07/13/24 1300 Scheduled providers: Kasey Fallon MD; Rosaura Marie APRN.RETAIL ATTENDANT; Luz Elena Franklin MD Procedure: ENTEROSCOPY Location: [...] and consent discussed: yes. Patient / Responsible Green Party agrees to proceed: yes Patient / Surrogate [...] ORAL) Take by mouth. vit A/vit C/biotin/zinc/copper (BFNQ-IRSW-MEKK,VIT A,C-BIOTIN, ORAL) Take by mouth. aspirin 325 [...] (FLONASE) 50 mcg/actuation nasal spray Use 1 Thomson in each nostril once daily. atorvastatin (LIPITOR) [...] of Surgery/Pr (more content not included)... [facility] Enteroscopy Study observatio n Narrativeon 07-13-2024 [facility] Radiology Study observation (narrative) [facility] HISTORY PHYSICALon HISTORY PHYSICAL HNO ID: [id number] Author: KASEY FALLON MD Service: Gastroenterology Author [...] ORAL) Take by mouth. vit A/vit C/biotin/zinc/copper (APSY-TSPY-NLCN,VIT A,C-BIOTIN, ORAL) Take by mouth. aspirin 325 [...] (FLONASE) 50 mcg/actuation nasal spray Use 1 Thomson in each nostril once daily. atorvastatin (LIPITOR) [...] NAME: Munira Chester DATE: 07/13/2024 TIME: 1345 [facility] NURSING PROGon 07-13-2024 NURSING PROG HNO ID: [id number] Author: LINDA ALVARADO RN Service: ? Author [...] Electronically Signed By: Linda Alvarado RN [facility] NURSING PROG HNO ID: [id number] Author: MARY CALLEJAS RN Service: ? Author [...] Mary Callejas RN In Department: GASTROENTEROLOGY [facility] Pathology biopsy report David (Tiss)on 07-13-2024 AP DISCLAIMER [facility] Comment on above: Order Comment: Speci men Type: TISSUE SPECIMENOrdering Facility: [facility] Address: [address] [place] [address] Result Comment: Adri wooten Developed Test (LDT) Disclaimer: Performance characteristics of immunohistochemical, immunofluorescent, and chromogenic in-situ hybridization tests have been determined by the performing laboratory within [facility]'s [facility] Pathology and Laboratory Medicine Department ([facility], [facility], [facility], [facility], [facility], [facility], or [facility]) in a manner consistent with CLIA requirements. One or more of these tests may not have been cleared or approved by the FDA. [facility] is regulated under CLIA as qualified to perform high-complexity testing. These tests are used for clinical purposes. These should not be regarded as investigational or for research. Positive and negative controls stain appropriately. Performed By: #### 6 6121-5 ####[facility]ORATORYCLIA [id number] [address] OF [facility] LABCLIA [id number] [address] STATES OF [facility] CASE REPORT [facility] Comment on above: Order Comment: Speci men Type: TISSUE SPECIMENOrdering Facility: [facility] Address: [address] [place] [address] Result Comment: Surg ica Pathology Report Case: [id number] Authorizing Provider: Kasey Fallon MD Collected: 07/13/2024 03:06 PM Ordering Location: Gastroenterology Received: 07/13/2024 06:18 PM Pathologist: Espinoza Sharp MD Specimens: A) - Small Bowel, Ileum, Biopsy, Mid ileal stricture B) - Small Bowel, Ileum, Biopsy, Distal ileal C) - Small Bowel, Terminal Ileum, Biopsy D) - Colon, Hepatic Flexure, Polyp Performed By: #### 6 6121-5 ####[facility] LABORATORYCLIA [id number] [address] LABCLIA [id number] [address] STATES OF [facility] FINAL DIAGNOSIS [facility] Comment on above: Order Comment: Speci men Type: TISSUE SPECIMENOrdering Facility: [facility] Address: [address] [place] [address] Result Comment: A. M id ileal stricture, biopsy: - Small bowel mucosa with ulcer. - Negative for dysplasia or granulomas. B. Ileum, biopsy: - Small bowel mucosa with no significant pathologic changes. C. Terminal ileum, biopsy: - Small bowel mucosa with no significant pathologic changes. D. Hepatic flexure, polypectomy: - Fragments of tubular adenoma. at 1114 EDT Performed By: #### 6 6121-5 ####[facility] LABORATORYCLIA [id number] [address] LABCLIA [id number] [address] FINAL PERFORMING LAB [facility] Comment on above: Order Comment: Speci men Type: TISSUE SPECIMENOrdering Facility: [facility] Address: [address] [place] [address] Result Comment: Diag nostic interpretation performed at: [facility], [address] [address] CLIA# [id number] Nursing Home Director: Tanvi Astudillo MD Performed By: #### 6 6121-5 ####[facility]ORATORYCLIA [id number] [address] LABCLIA [id number] [place] [address] [facility] GROSS DESCRIPTION Normal [facility] Comment on above: Order Comment: Speci men Type: TISSUE SPECIMENOrdering Facility: [facility] Address: [facility] [address], [place] [address] Result Comment: A. S mall Bowel, Ileum, [...] in one cassette. Gross examination performed at [facility], [address] [place] [address], [address] July 13, 2024 10:18 PM Performed By: #### 6 6121-5 ####[facility]ORATORYCLIA [id number] [address] OF [facility] LABCLIA [id number] [address] OF [facility] Ambulatory Visit Summaryon 0 07-08-2024 Ambulatory Visit [...] spray) fluticasone nasal (fluticasone 0.05 mg/inh Nasal Thomson) fluticasone-vilanterol (Breo Ellipta 200 mcg-25 mcg/inh inhalation [...] Someone Will Contact You Regarding These Appointments [facility] External Ambulatory Referral, Urology, Dr. Janae Caban at [facility], 04/23/25 9:53:00 EDT, Intrinsic sphincter deficiency (ISD) Medications [...] fluticasone nasal (fluticasone 0.05 mg/ inh Nasal Thomson) 2 Sprays Nasal Inhalation Every day Contact [...] pain Ab (more content not included)... [facility] Urology Office/Clinic Noteon 07-08-2024 Urology Office/Clinic Note [...] . -Refer to Dr. Janae Caban at [facility] for further w/up such as video urodynamics [...] Refer to Dr. Janae Caban at [facility] Patient Education Urinary Incontinence I, Ailyn Aranda, personally scribed for Dr. Buchanan on 07/08/2024 09:53:11. . Documentation recorded by the scribeAilyn, accurately reflects the services(s) I performed and decisions made by me. Authenticated by Dr. Buchanan on 07/08/2024 10:36:35. Problem List/Past Medical History Ongoing Abdominal bloating Acute allergic rhinitis due to pollen Arthritis Asthma Asymptomatic m (more content not included)... [facility] Comment on above: Result Comment: Elec tronically Signed By: Asuncion Buchanan MD\.br\Date and Time Signed: 07/08/24 10:37 EDT\.br\Electronically Co-Signed By: Ailyn Aranda\.br\Date and Time Co-Signed: 07/08/24 09:53 EDT NURSING PROGon 07-06-2024 NURSING PROG HNO ID: [id number] Author: NOEMÍ WILLIAM RN Service: ? Author Type: Registered Nurse Type: Nursing Progress Note Filed: 07/06/2024 13:25 Note Text: Attempted to reach the patient at the contact number that they provided [phone] (home) [phone] (work) . 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 they must have a responsible adult accompany [...] Number to call with questions or concerns [phone] Number to call to cancel their procedure [phone] Noemí William RN [id number] ----- MUNIRA CHESTER ([id number]) 1950 F Date Time Provider Department 07/01/24 JACQUELINE HONG3 During your visit today, we recorded the following information about you: Jacqueline Hong RN 07/01/2024 3:54 PM Signed Prep question unable to take Gatorade / Message sent to referring Tu Brody RN 07/02/2024 2:03 PM Addendum Patient has been [...] Assessed Reason for Visit: Education Of Patient/family [904] Patient Question [5447] Cmt: Message sent to referring physician regarding [...] Take by mouth. - vit A/vit C/biotin/zinc/copper (NWWQ-XVUP-JCOI,VIT A,C-BIOTIN, ORAL) Take by mouth. - aspirin [...] (FLONASE) 50 mcg/actuation nasal spray Use 1 Thomson in each nostril once daily. - atorvastatin [...] Encounter Status:Closed by JACQUELINE HONG on 07/01/24 [facility] Main OR Intraoperative Recor don 06-03-2024 Main OR Intraoperative Record Main OR Intraoperative Record IntraOp Document Type FT Summary Primary Physician: Asuncion Buchanan MD Finalized Date/Time: 06/03/24 11:56:15 Pt. Name: MUNIRA CHESTER/Sex: 1950 Female Med Rec #: [id number] Physician: Asuncion Buchanan MD Financial #: [id number] Pt. Type: A Room/Bed: [facility]05/16 Admit/Disch: 06/02/24 05:52:59 - 06/02/24 10:10:00 Institution: [...] Crews RN, Luz Elena Walden Role Performed RETAIL ATTENDANT Surgeon - Primary School Age Program Teacher - Primary Time In 06/02/24 08:11:00 06/02/24 [...] 06/02/24 08:34:00 Procedure CYSTOSCOPY(.) Comments ALF LOPEZ, TRAVELING SALES EXECUTIVE STUDENT FOLLOWING Last Modified By: Mars KILLIAN, [...] (If Applicable) PreOp Antibiotic Yes Time Out Asuncion Buchanan MD, Given Participants Cyrus Cottrell CRNA, Mars KILLIAN, Meredith Duke Kendall R Time Out Complete [...] and tissue Entry 1 Skin Integrity Intact, [place], Warm, & Skin Abnormality Yes Dry, Red [...] Leg Posi (more content not included)... Normal [facility] Discharge Instructionson Discharge Instructions Discharge Instruc tions [...] spray) fluticasone nasal (fluticasone 0.05 mg/inh Nasal Thomson) fluticasone-vilanterol (Breo Ellipta 200 mcg-25 mcg/inh inhalation [...] up in 1 month for PVR Where: [address] [place] [address], [address] [phone] Business (1) Medications What How Much When Why Instructions Next Dose New cephalexin (Keflex 500 mg Cap) 1 Capsules By Mouth Every 12 hours Duration: 4 Days Post procedure Pickup at [facility] Unchanged albuterol (ProAir HFA 90 mcg/ [...] fluticasone nasal (fluticasone 0.05 mg/ inh Nasal Thomson) 2 Sprays Nasal Inhalation Every day Unchanged [...] H/O gastric ulcer BMI 29.0-29.9,adult Pharmacy Information [facility]: [address], [place] [phone] Test Results No qualifying data available. Allergies Bee Stings (SOB - Shortness of breath, Hives) amoxicillin (Rash) contrast media (iodine-based) (SOB - Shortness of breath, (more content not included)... Normal [facility] Comment on above: Result Comment: Elec tronically Signed By: Aleyda KILLIAN, Roxanne Mitchell\.br\Date and Time Signed: 06/02/24 09:01 EDT Inpatient Patient Summaryon 06-02-2024 Inpatient Patient Summary Inpatient Patient Summary [place] [id number] [facility] Clinical Discharge Instructions PERSON INFORMATION Name: MUNIRA CHESTER PHYSICIANS Admitting Physician: Asuncion Buchanan MD Attending Physician: Asuncion Buchanan MD PCP: ANDREA GOLDEN DO Discharge Diagnosis: Intrinsic sphincter deficiency (ISD) Comment: PATIENT EDUCATION INFORMATION Instructions: Lue - Bulkamid Post-Op Instructions (CUSTOM) Medication Leaflets: Follow up: With: Address: When: Asuncion Valdez, [place] [address], [address] [phone] Business (1) Comments: Call to schedule your follow up in 1 month for PVR MEDICATION LIST New Medications [facility], [address] [place], [place] [id number], [phone] cephalexin (Keflex 500 mg Cap) 1 Capsules [...] day. fluticasone nasal (fluticasone 0.05 mg/inh Nasal Thomson) 2 Sprays Nasal Inhalation every day. fluticasone [...] Mouth every day. Refills: 1. Comment: Alexandrea [facility] Main OR PACU I Recordon 05-16 Main OR PACU I Record Main OR PACU I Rec ord PACU Phase I Document Type FT Summary Primary Physician: Asuncion Buchanan MD Finalized Date/Time: 06/02/24 09:13:02 Pt. Name: MUNIRA CHESTER/Sex: 1950 Female Med Rec #: [id number] Physician: Asuncion Buchanan MD Financial #: [id number] Pt. Type: A Room/Bed: [place] [address] Admit/Disch: 06/02/24 05:52:59 - Institution: Case Times [...] By: Shruthi Cabezas RN 06/02/24 09:13 Normal [facility] Main OR PACU II Recordon Main OR PACU II Record Main OR PACU II R ecord PACU Phase II Document Type FT Summary Primary Physician: Asuncion Buchanan MD Finalized Date/Time: 06/02/24 10:20:05 Pt. Name: JENIFER CHESTERRUKHSANA Chicas/Sex: 1950 Female Med Rec #: [id number] Physician: Asuncion Buchanan MD Financial #: [id number] Pt. Type: A Room/Bed: [facility]/ Admit/Disch: 06/02/24 05:52:59 - Institution: Case Times [...] By: Roxanne Maynard RN 06/02/24 10:20 Normal [facility] Main OR Preoperative Recordo n 06-02-2024 Main OR Preoperative Record Main OR Preoperative Record PreOp Document Type FT Summary Primary Physician: Asuncion Buchanan MD Finalized Date/Time: 06/02/24 08:29:55 Pt. Name: MUNIRA CHESTER/Sex: 1950 Female Med Rec #: [id number] Physician: Asuncion Buchanan MD Financial #: [id number] Pt. Type: A Room/Bed: [place] [address] Admit/Disch: 06/02/24 05:52:59 - Institution: Case Times [...] Luz Elena Crews RN 06/02/24 08:29 Normal [facility] Operative Reporton Operative Report Operative Report Patient: MUNIRA CHESTER Age: 73 years Sex: Female : 1950 Associated Diagnoses: None Author: Asuncion Buchanan MD Procedure Procedure Date: 06/02/2024. Confirmed: patient, procedure, site, safety procedures followed. Performed by: Asuncion Buchanan MD, anesthesiologist (Cyrus Cottrell CRNA). Type of procedure: Type of procedure: Cystoscopy, injection of urethral bulking agent (Bulkamid) CPT 54549. . 73-year-old female with a history of [...] and Plan Diagnosis Intrinsic sphincter deficiency (ISD) (HCE92-ZL N36.42, Discharge, Medical). Diagnosis Intrinsic sphincter deficiency (ISD) (GTJ69-SG N36.42, Discharge, Medical). Normal [facility] Comment on above: Result Comment: Elec tronically Signed By: Dewayne VILLEGAS, Asuncion London\.br\Date and Time Signed: 06/02/24 08:46 EDT Outpatient Surgery Discharge Instructionon 06-02-2024 Outpatient Surgery Discharge Instruction Outpatient Surgery Discharge Instruction [address] [address] Patient Discharge Instructions PERSON INFORMATION Name: MUNIRA [...] NEAREST EMERGENCY ROOM OR CALL 911 I, ADRIA CHESTERY, have received the attached patient education materials/instructions and have verbalized understanding: May we do a follow up call? Yes No I was present when discharge instructions were given Patient Signature ___ Date Clinican/Nurse Signature Date Follow up: With: Address: When: Asuncion Buchanan [address] [place], [place] [address]karina, [address] [phone] [facility] (1) Comments: Call to schedule your follow up in 1 month for PVR Pharmacy Information: You may receive a survey from Mike Frias asking you to rate your care experience. Your feedback is important and will help us understand what we do well and how we can improve the quality of care we provide to you, your loved ones and our community. It???s an honor to serve you. Thank you for choosing [facility] HERE ARE THE MEDICATION CHANGES THAT OCCURRED DURING YOUR HOSPITAL STAY New Medications [facility], [address] [place] [id number], [phone] cephalexin (Keflex 500 mg Cap) 1 Capsules [...] day. fluticasone nasal (fluticasone 0.05 mg/inh Nasal Thomson) 2 Sprays Nasal Inhalation every day. fluticasone [...] 1. PATIENT EDUCATION INFORMATION Instructions: [facility] [place], [place] Post-Operative Instructions for Bulkamid Congratulations on [...] the procedure. (more content not included)... Normal [facility] C Urineon 05-22-2024 Bacteria identified Cx Nom [...] Locations R1: This test was performed at: [facility], [address] [place] [address], [phone] , , Normal [facility] Comment on above: Performed By: #### 2 [id number] #### [facility] [address] [place] [address] Performed By: #### 2 [id number] ####[facility] [address] [place] [address] CNPNon 05-22-2024 CNPN Telephone (GASTA5) ----- MUNIRA CHESTER ([id number]) 1950 F Date Time Provider Department 05/22/24 [...] Take by mouth. - vit A/vit C/biotin/zinc/copper (BOST-NDTH-QCND,VIT A,C-BIOTIN, ORAL) Take by mouth. - aspirin [...] (FLONASE) 50 mcg/actuation nasal spray Use 1 Thomson in each nostril once daily. - atorvastatin [...] Status:Closed by HOLLIS MCKEON on 05/22/24 Normal [facility] UA with Cult Rflxon 05-21-19 25 Bacteria Auto Ql (U) 2+ /HPF Abnormal Trace Fish er [facility] Comment on above: Performed By: #### 4 [id number] #### [facility] [address] [place] [address] Bilirubin Ql (U) Negative Normal Negative [facility] Comment on above: Performed By: #### 4 [id number] #### [facility] [address] [place] [address] Calcium oxalate crystals Computer assisted Ql (U) Present Abnormal [facility] Comment on above: Performed By: #### 4 [id number] #### [facility] [address] [place] [address] Clarity (U) Turbid Abnormal Clear [facility] Comment on above: Performed By: #### 4 [id number] #### [facility] [address] [place] [address] Color (U) Yellow Normal Yellow [facility] Comment on above: Result Comment: Micr oscopic readings are only performed on those samples that meet specific criteria set forth by [facility]. Performed By: #### 4 [id number] #### [facility] [address] [place] [address] Epithelial cells.squamous Auto (Urine sed) [#/Area] 0-2 Invalid Interpretation Code [facility] Comment on above: Performed By: #### 4 [id number] #### [facility] [address] [place] [address] Glucose Ql (U) Negative Normal Negative [facility] Comment on above: Performed By: #### 4 [id number] #### [facility] [address] [place] [address] Hemoglobin Auto test strip (U) [Mass/Vol] Negative Normal Negative [facility] Comment on above: Performed By: #### 4 [id number] #### [facility] [address] [place] [address] Hyaline casts LM Ql (Urine sed) 4-10 Abnormal 0-3 [facility] Comment on above: Performed By: #### 4 [id number] #### [facility] [address] [place] [address] Ketones Auto test strip Ql (U) Negative Normal Negative [facility] Comment on above: Performed By: #### 4 [id number] #### [facility] [address] [place] [address] Leukocyte esterase Auto test strip Ql (U) 25 Rosemarie/uL Normal Negative [facility] Comment on above: Performed By: #### 4 [id number] #### [facility] [address] [place] [address] Mucus Auto Ql (U) 4+ CD:[id number] Abnormal Negative F [facility] Comment on above: Performed By: #### 4 [id number] #### [facility] [address] [place] [address] Nitrite Auto test strip Ql (U) Negative Normal Negative [facility] Comment on above: Performed By: #### 4 [id number] #### [facility] [address] [place] [address] pH (U) 5.5 [pH] Invalid Interpretation Code 5.0-9.0 [facility] Comment on above: Performed By: #### 4 [id number] #### [facility] [address] [place] [address] Protein Ql (U) 1+ mg/dL Abnormal Negative [facility] Comment on above: Performed By: #### 4 [id number] #### [facility] [address] [place] [address] Specific gravity (U) [Rel density] 1.034 Invalid Interpretation Code 1.005-1.03 0 [facility] Comment on above: Performed By: #### 4 [id number] #### [facility] [address] [place] [address] Urobilinogen (U) [Mass/Vol] 2 mg/dL Abnormal Negative [facility] Comment on above: Performed By: #### 4 [id number] #### [facility] [address] [place] [address] WBC Auto (Urine sed) [#/Area] 6-15 Abnormal 0-5 [facility] Comment on above: Performed By: #### 4 [id number] #### [facility] [address] [place] [address] Type of Urine collection method Clean Catch Normal [facility] Comment on above: Performed By: #### 4 [id number] #### [facility] [address] [place] [address] URINALYSISOrdered By: SYSTEM SYSTEM on 05-20-2024 Bacteria [...] that meet specific criteria set forth by [facility]. Epithelial cells.squamous Auto (Urine sed) [#/Area] [...] spray) fluticasone nasal (fluticasone 0.05 mg/inh Nasal Thomson) fluticasone-vilanterol (Breo Ellipta 200 mcg-25 mcg/inh inhalation [...] Following Appointments Follow Up with Dewayne VILLEGAS, Asuncion [place], URO When: Where: Medications What How Much [...] fluticasone nasal (fluticasone 0.05 mg/ inh Nasal Thomson) 2 Sprays Nasal Inhalation Every day Contact [...] prescribing ph (more content not included)... Normal [facility] Urology Office/Clinic Noteon 04-22-2024 Urology Office/Clinic Note Urology Office/Clinic Note Chief Complaint 2 [place] review HPI Staff 73yr old female [...] UTI (N (more content not included)... Normal [facility] Comment on above: Result Comment: Elec tronically Signed By: Asuncion Buchanan MD\.br\Date and Time Signed: 04/22/24 11:55 EST\.br\Electronically Co-Signed By: Ailyn Aranda\.br\Date and Time Co-Signed: 04/22/24 11:33 EST Surgical Pathology Reporton 04-17-[address] [facility] [address] [place] [address]- Surgical Pathology Report Collected Date/Time: 04/07/2024 10:02 EST Pathologist: Fabiano VILLEGAS PhD, Dwight Parra Received Date/Time: 04/07/2024 10:58 Asuncion Cardenas MD, MD, Asuncion Hightower Surgical Pathology Report [...] is entirely submitted in one cassette. (DC) DC:[facility] Microscopic Description Microscopic examination performed unless gross only specified. This report was transcribed using voice recognition technology and might contain unintended computerized digital service engineer errors. Normal [facility] Comment on above: Performed By: #### 4 [id number] #### [facility] [address] [place] [address] Main OR Intraoperative Recor don 04-08-2024 Main OR Intraoperative Record Main OR Intraoperative Record IntraOp Document Type FT Summary Primary Physician: Asuncion Buchanan MD Finalized Date/Time: 04/08/24 08:33:19 Pt. Name: MUNIRA CHESTER/Sex: 1950 Female Med Rec #: [id number] Physician: Asuncion Buchanan MD Financial #: [id number] Pt. Type: A Room/Bed: [facility] Admit/Disch: 04/07/24 07:20:36 - 04/07/24 12:00:00 Institution: [...] RN Role Performed Anesthesiologist Surgeon - Primary School Age Program Teacher - Primary Teaching Aide Time In 04/07/24 09:46:00 04/07/24 09:46:00 04/07/24 09:46:00 Time Out 04/07/24 10:20:00 04/07/24 10:16:00 04/07/24 10:20:00 Procedure CYSTOSCOPY TURB(.) CYSTOSCOPY TURB(.) CYSTOSCOPY TURB(.) Comments DR. CAMACHO SUPERVISING Last Modified By: Santy RNMary RN, Mary Raymundo RN 04/07/24 10:21:25 04/07/24 [...] E 04/07/24 10:21:25 04/07/24 10:21:25 General Comments: gavin technology officer student alf correa also present for this case. MARIA D kaiserflame planer Protocols FT Pre-Care Text: Implements protective measures [...] (If Applicable) PreOp Antibiotic Yes Time Out Linnette FULLER, Bravo Given Participants Dewayne Mo MD, Asuncion [place], [...] WITH FULGURATION Primary Procedure Yes Primary Surgeon Dewayne VILLEGAS, Asuncion [place] Start 04/07/24 09:59:00 Stop 04/07/24 10:16:00 Anesthesia [...] and tissue Entry 1 Skin Integrity Intact, [place], Warm, & Skin Abnormality No Dry Outcomes [...] Procedure CYST (more content not included)... Normal [facility] Discharge Instructionson Discharge Instructions Discharge Instruc tions [...] spray) fluticasone nasal (fluticasone 0.05 mg/inh Nasal Thomson) fluticasone-vilanterol (Breo Ellipta 200 mcg-25 mcg/inh inhalation [...] VILLEGAS, Asuncion [place] Where: [facility] [address] [place] [address]- New Follow Up Appointments after Discharge Follow Up with Asuncion Buchanan When: Comments: Office to call to schedule your follow up: white removal and voiding trial in 1-2 days once urine is clear. Follow up in 1-2 weeks for pathology review. Where: [facility], [address] [phone] Business (1) Medications What How Much When Why Instructions Next Dose New ciprofloxacin (Cipro 500 mg Tab) 1 Tablets By Mouth Every 12 hours Duration: 1 Days Start morning of white removal in 1-2 days Pickup at [facility] New oxybutynin (oxybutynin 5 mg Tab) 1 Tablets By Mouth 3 times a day as needed for bladder spasms Pickup at [facility] Unchanged albuterol (ProAir HFA 90 [...] fluticasone nasal (fluticasone 0.05 mg/ inh Nasal Thomson) 2 Sprays Nasal Inhalation Every day Unchanged [...] day Unch (more content not included)... Normal [facility] Comment on above: Result Comment: Elec tronically Signed By: Gilbert KILLIAN, Nasrin Mitchell\.melissa\Date and Time Signed: 04/07/24 10:41 EST Inpatient Patient Summaryon 04-07-2024 Inpatient Patient Summary Inpatient Patient Summary [address] [facility] Clinical Discharge Instructions PERSON INFORMATION Name: MUNIRA CHESTER [facility]#:[id number] PHYSICIANS Admitting Physician: Asuncion Buchanan MD Attending Physician: Asuncion Buchanan MD PCP: ANDREA GOLDEN DO Discharge Diagnosis: Urethral caruncle; Urethral tumor Comment: PATIENT EDUCATION INFORMATION Instructions: [place] - Post Op INstructions for Bladder Tumor, Bladder Biopsy (CUSTOM) Medication Leaflets: Follow up: With: Address: When: Asuncion Dewayne [address] [facility], [place] [address], [facility] [address] [place] [phone] Business (1) Comments: Office to call to schedule your follow up: white removal and voiding trial in 1-2 days once urine is clear. Follow up in 1-2 weeks for pathology review. Type Location Start Finish [facility] URO Office Visit [facility] [place] BHAVIN Baronue 04/22/2024 10:45 AM 04/22/2024 11:00 AM Confirmed MEDICATION LIST New Medications [facility], [address], [place] [id number], [phone] ciprofloxacin (Cipro 500 mg Tab) 1 Tablets [...] day. fluticasone nasal (fluticasone 0.05 mg/inh Nasal Thomson) 2 Sprays Nasal Inhalation every day. fluticasone [...] Mouth every day. Refills: 1. Comment: Normal [facility] Main OR PACU I Recordon 03-19 Main OR PACU I Record Main OR PACU I Rec ord PACU Phase I Document Type FT Summary Primary Physician: Asuncion Buchanan MD Finalized Date/Time: 04/07/24 12:46:06 Pt. Name: MUNIRA CHESTER/Sex: 1950 Female Med Rec #: [id number] Physician: Asuncion Buchanan MD Financial #: [id number] Pt. Type: A Room/Bed: [facility]/ Admit/Disch: 04/07/24 07:20:36 - 04/07/24 12:00:00 Institution: [...] By: Pam Harris RN 04/07/24 12:46 Normal [facility] Main OR PACU II Recordon Main OR PACU II Record Main OR PACU II R ecord PACU Phase II Document Type FT Summary Primary Physician: Asuncion Buchanan MD Finalized Date/Time: 04/07/24 12:11:40 Pt. Name: MUNIRA CHESTER Aviva/Sex: 1950 Female Med Rec #: [id number] Physician: Asuncion Buchanan MD Financial #: [id number] Pt. Type: A Room/Bed: [facility] Admit/Disch: 04/07/24 07:20:36 - Institution: [...] By: Nasrin Stacy RN 04/07/24 12:11 Normal [facility] Main OR Preoperative Recordo n 04-07-2024 Main OR Preoperative Record Main OR Preoperative Record PreOp Document Type FT Summary Primary Physician: Asuncion Buchanan MD Finalized Date/Time: 04/07/24 10:06:13 Pt. Name: MUNIRA CHESTER /Sex: 1950 Female Med Rec #: [id number] Physician: Asuncion Buchanan MD Financial #: [id number] Pt. Type: A Room/Bed: [facility] Admit/Disch: 04/07/24 07:20:36 - Institution: [...] By: Mary Madera RN 04/07/24 10:06 Normal [facility] Operative Reporton Operative Report Operative Report Patient: [...] We began the procedure using a 22.5 Indian rigid cystoscope, 30 degree lens, and inserted [...] was used to achieve hemostasis. An 18 Indian White catheter was inserted into the bladder [...] review.. Impression and Plan Diagnosis Urethral tumor (BAQ41-RK D49.59, Discharge, Medical). Urethral caruncle (EJV89-ZC N36.2, Discharge, Medical). Diagnosis Urethral tumor (DGW23-GZ D49.59, Discharge, Medical). Urethral caruncle (CNX46-IK N36.2, Discharge, Medical). Normal [facility] Comment on above: Result Comment: Elec tronically Signed By: Dewayne VILLEGAS, Asuncion [place]\.br\Date and Time Signed: 04/07/24 10:46 EST Outpatient Surgery Discharge Instructionon 04-07-2024 Outpatient Surgery Discharge Instruction Outpatient Surgery Discharge Instruction [place] [id number] Patient Discharge Instructions PERSON INFORMATION Name: MUNIRA [...] NEAREST EMERGENCY ROOM OR CALL 911 I, MUNIRA CHESTER, have received the attached patient education materials/instructions and have verbalized understanding: May we do a follow up call? Yes No I was present when discharge instructions were given Patient Signature ___ Date Clinican/Nurse Signature Date Follow up: With: Address: When: Asuncion Buchanan [address], [place] [address], [facility] [address] [place] [phone] Business (1) Comments: Office to call to schedule your follow up: white removal and voiding trial in 1-2 days once urine is clear. Follow up in 1-2 weeks for pathology review. Type Location Start Finish State URO Office Visit [facility] [place] [facility] [place] 04/22/2024 10:45 AM 04/22/2024 11:00 AM Confirmed Pharmacy Information: You may receive a survey from Mike Frias asking you to rate your care experience. Your feedback is important and will help us understand what we do well and how we can improve the quality of care we provide to you, your loved ones and our community. It???s an honor to serve you. Thank you for choosing [facility] HERE ARE THE MEDICATION CHANGES THAT OCCURRED DURING YOUR HOSPITAL STAY New Medications [facility], [address] [place] [id number], [phone] ciprofloxacin (Cipro 500 mg Tab) 1 Tablets [...] day. fluticasone nasal (fluticasone 0.05 mg/inh Nasal Thomson) 2 Sprays Nasal Inhalation every day. fluticasone [...] 1. PATIENT EDUCATION INFORMATION Instructions: [facility] [place], [place] Post-Operative Instructions *Even though there are no visible incisions, the urethra is quite raw on the inside and you need to follow some instructions to minimize the risks of bleeding and disturbing the area over the next 4 weeks. *The catheter in the (more content not included)... Normal [facility] C Urineon 03-26-2024 Bacteria identified Cx Nom [...] Locations R1: This test was performed at: [facility], [address] [place] [address], [facility]- , , Normal [facility] Comment on above: Performed By: #### 2 [id number] #### [facility] [address] [place] [address] XR Chest 2 Viewson XR Chest 2 [...] mGy = n/a DAP = n/ Normal [facility] BMPon 03-24-2024 Anion gap [Moles/Vol] 12 mmol/L Normal 6-16 [facility] Comment on above: Performed By: #### 2 [id number] #### [facility] [address] [place] [address] Calcium [Mass/Vol] 9.2 mg/dL Normal 8.9-11.1 [facility] Comment on above: Performed By: #### 2 [id number] #### [facility] [address] [place] [address] Chloride [Moles/Vol] 106 mmol/L Normal 101-111 [facility] Comment on above: Performed By: #### 2 [id number] #### [facility] [address] [place] [address] CO2 [Moles/Vol] 27 mmol/L Normal 21-31 [facility] Comment on above: Performed By: #### 2 [id number] #### [facility] [address] [place] [address] Creatinine [Mass/Vol] 0.7 mg/dL Normal 0.5-1.3 [facility] Comment on above: Performed By: #### 2 [id number] #### [facility] [address] [place] [address] Glucose [Mass/Vol] 96 mg/dL Normal 55-199 [facility] Comment on above: Performed By: #### 2 [id number] #### [facility] [address] [place] [address] Potassium [Moles/Vol] 3.5 mmol/L Normal 3.5-5.3 [facility] Comment on above: Performed By: #### 2 [id number] #### [facility] [address] [place] [address] Sodium [Moles/Vol] 141 mmol/L Normal 135-145 [facility] Comment on above: Performed By: #### 2 [id number] #### [facility] [address] [place] [address] Urea nitrogen [Mass/Vol] 14 mg/dL Normal 5-21 [facility] Comment on above: Performed By: #### 2 [id number] #### [facility] [address] [place] [address] Urea nitrogen/Creatinine [Mass ratio] 20 No Units Normal 10-20 [facility] Comment on above: Performed By: #### 2 [id number] #### [facility] [address] [place] [address] CBC w/ Auto Diffon 5 Basophils/100 WBC (Bld) 0.4 % Normal 0.0-2.0 [facility] Comment on above: Performed By: #### 2 [id number] #### [facility] [address] [place] [address] Basophils/Leukocytes Auto (Bld) [Pure # fraction] 0.0 E9/L Normal 0.0-0.2 [facility] Comment on above: Performed By: #### 2 [id number] #### [facility] [address] [place] [address] Eosinophils (Bld) [#/Vol] 0.2 E9/L Normal 0.0-0.5 [facility] Comment on above: Performed By: #### 2 [id number] #### [facility] [address] [place] [address] Eosinophils/100 WBC (Bld) 2.2 % Normal 0.0-8.0 [facility] Comment on above: Performed By: #### 2 [id number] #### [facility] [address] [place] [address] Erythrocyte distribution width (RBC) [Ratio] 14.6 % High 10.9-14.2 [facility] Comment on above: Performed By: #### 2 [id number] #### [facility] [address] [place] [address] Hematocrit (Bld) [Volume fraction] 36.8 % Normal 34.0-46.0 [facility] Comment on above: Performed By: #### 2 [id number] #### [facility] [address] [place] [address] Hemoglobin (Bld) [Mass/Vol] 12.8 g/dL Normal 12.0-16.0 [facility] Comment on above: Performed By: #### 2 [id number] #### [facility] [address] [place] [address] Lymphocytes (Bld) [#/Vol] 1.3 E9/L Normal 1.0-4.0 [facility] Comment on above: Performed By: #### 2 [id number] #### [facility] [address] [place] [address] Lymphocytes/100 WBC (Bld) 12.1 % Low 14.0-50.0 [facility] Comment on above: Performed By: #### 2 [id number] #### [facility] [address] [place] [address] MCH (RBC) [Entitic mass] 31.7 pg Normal 27.0-34.0 [facility] Comment on above: Performed By: #### 2 [id number] #### [facility] [address] [place] [address] MCHC (RBC) [Mass/Vol] 34.7 g/dL Normal 31.4-36.0 [facility] Comment on above: Performed By: #### 2 [id number] #### [facility] [address] [place] [address] MCV (RBC) [Entitic vol] 91.5 fL Normal 80.0-100.0 [facility] Comment on above: Performed By: #### 2 [id number] #### [facility] [address] [place] [address] Monocytes (Bld) [#/Vol] 0.9 E9/L Normal 0.2-1.0 [facility] Comment on above: Performed By: #### 2 [id number] #### [facility] [address] [place] [address] Neutrophils (Bld) [#/Vol] 8.1 E9/L High 2.0-7.5 [facility] Comment on above: Performed By: #### 2 [id number] #### [facility] [address] [place] [address] Neutrophils/100 WBC (Bld) 76.6 % High 36.0-75.0 [facility] Comment on above: Performed By: #### 2 [id number] #### [facility] [address] [place] [address] Platelet mean volume (Bld) [Entitic vol] 8.3 fL Normal 6.4-10.8 [facility] Comment on above: Performed By: #### 2 [id number] #### [facility] [address] [place] [address] Platelets (Bld) [#/Vol] 336.0 E9/L Normal 150. 0-500. 0 [facility] Comment on above: Performed By: #### 2 [id number] #### [facility] [address] [place] [address] RBC (Bld) [#/Vol] 4.0 E12/L Low 4.3-5.9 [facility] Comment on above: Performed By: #### 2 [id number] #### [facility] [address] [place] [address] WBC corrected for nucl RBC Auto (Bld) [#/Vol] 10.6 E9/L Normal 4.0-11.0 [facility] Comment on above: Performed By: #### 2 [id number] #### [facility] [address] [place] [address] CHEMISTRYOrdered By: SYSTEM SYSTEM on 03-24-2024 Anion [...] 32.8 s Normal 25.1 - 36.5 second(s) [facility] [place] Auto Coag Comment on [...] the same coagulation reagent and instrumentation as [facility] [place]. Currently there are no coagulation studies available worldwide for children to 14 days, and no normal ranges. Heparin therapeutic range (represented by Anti-Factor Xa activity of 0.2 - 0.4 U/mL) corresponds to PTT of 56.6 - 109.0 sec. INR Coag (PPP) [Relative time] 1.06 {INR} Invalid Interpretation Code [facility] [place] [facility] Comment on above: Interpretive Data: I NR results are specifically intended to assess patients stabilized on long-term Anticoagulation therapy suggested INR s Less Intensive Anticoagulation 2.0 3.0 Conventional Range 3.0 4.5 PT Coag (PPP) [Time] 11.9 s Normal 9.4 - 1 2.5 second(s) [facility] [place] [facility] Comment on [...] the same coagulation reagent and instrumentation as [facility] [place]. Currently there are no [...] Coag (PPP) [Time] 32.8 second(s) Normal 25.1-36.5 [facility] Comment on above: Result Comment: Para meter 15 days - 4 weeks 1 - 5 months 6 - 11 months 1 - 5 years 6 - 10 years 11 - 17 years PTT Mean: 35.4 (27.6-45.6) Mean: 33.5 (24.8-40.7) Mean: 32.4 (25.1-40.7) Mean: 31.6 (24.0-39.2) Mean: 31.6 (26.9-38.7) Mean: 31.0 (24.6-38.4) Pediatric Reference ranges were obtained from a study by aMrcelino Pruitt et al. prepared from 1437 samples obtained at 7 different centers using the same coagulation reagent and instrumentation as [facility] [place]. Currently there are no coagulation studies available worldwide for children to 14 days, and no normal ranges. Heparin therapeutic range (represented by Anti-Factor Xa activity of 0.2 - 0.4 U/mL) corresponds to PTT of 56.6 - 109.0 sec. Performed By: #### 1 [id number] #### [facility] [address] [place] [address] INR Coag (PPP) [Relative time] 1.06 {INR} Invalid Interpretation Code [facility] Comment on above: Result Comment: INR results are specifically intended to assess patients stabilized on long-term Anticoagulation therapy suggested INR???s ???Less Intensive Anticoagulation??? 2.0 ??? 3.0 Conventional Range 3.0 ??? 4.5 Performed By: #### 1 [id number] #### [facility] [address] [place] [address] PT Coag (PPP) [Time] 11.9 second(s) Normal 9.4-12.5 [facility] Comment on above: Result Comment: 15 d [...] the same coagulation reagent and instrumentation as [facility] [place]. Currently there are no coagulation studies available worldwide for children to 14 days, and no normal ranges. Performed By: #### 1 [id number] #### [facility] [address] [place] [address] UA with Cult Rflxon 03-24-19 25 Bacteria Auto Ql (U) Trace Normal Trace Fish [facility] Comment on above: Performed By: #### 4 [id number] #### [facility] [address] [place] [address] Bilirubin Ql (U) Negative Normal Negative [facility] Comment on above: Performed By: #### 4 [id number] #### [facility] [address] [place] [address] Clarity (U) Turbid Abnormal Clear [facility] Comment on above: Performed By: #### 4 [id number] #### [facility] [address] [place] [address] Color (U) Yellow Normal Yellow [facility] Comment on above: Result Comment: Micr oscopic readings are only performed on those samples that meet specific criteria set forth by [facility]. Performed By: #### 4 [id number] #### [facility] [address] [place] [address] Epithelial cells.squamous Auto (Urine sed) [#/Area] 0-2 Invalid Interpretation Code [facility] Comment on above: Performed By: #### 4 [id number] #### [facility] [address] [place] [address] Glucose Ql (U) Negative Normal Negative [facility] Comment on above: Performed By: #### 4 [id number] #### [facility] [address] [place] [address] Hemoglobin Auto test strip (U) [Mass/Vol] Negative Normal Negative [facility] Comment on above: Performed By: #### 4 [id number] #### [facility] [address] [place] [address] Hyaline casts LM Ql (Urine sed) 0-3 Normal 0-3 [facility] Comment on above: Performed By: #### 4 [id number] #### [facility] [address] [place] [address] Ketones Auto test strip Ql (U) Negative Normal Negative [facility] Comment on above: Performed By: #### 4 [id number] #### [facility] [address] [place] [address] Leukocyte esterase Auto test strip Ql (U) 25 Rosemarie/uL Normal Negative [facility] Comment on above: Performed By: #### 4 [id number] #### [facility] [address] [place] [address] Mucus Auto Ql (U) 3+ [id number] Abnormal Negative F [facility] Comment on above: Performed By: #### 4 [id number] #### [facility] [address] [place] [address] Nitrite Auto test strip Ql (U) Negative Normal Negative [facility] Comment on above: Performed By: #### 4 [id number] #### [facility] [address] [place] [address] pH (U) 5.5 [pH] Invalid Interpretation Code 5.0-9.0 [facility] Comment on above: Performed By: #### 4 [id number] #### [facility] [address] [place] [address] Protein Ql (U) 1+ mg/dL Abnormal Negative [facility] Comment on above: Performed By: #### 4 [id number] #### [facility] [address] [place] [address] RBC Ql (U) 21-30 Abnormal 0-3 [facility] Comment on above: Performed By: #### 4 [id number] #### [facility] [address] [place] [address] Specific gravity (U) [Rel density] 1.039 Invalid Interpretation Code 1.005-1.03 0 [facility] Comment on above: Performed By: #### 4 [id number] #### [facility] [address] [place] [address] Urobilinogen (U) [Mass/Vol] Negative Normal Negative [facility] Comment on above: Performed By: #### 4 [id number] #### [facility] [address] [place] [address] WBC Auto (Urine sed) [#/Area] 6-15 Abnormal 0-5 [facility] Comment on above: Performed By: #### 4 [id number] #### [facility] [address] [place] [address] Type of Urine collection method Clean Catch Normal [facility] Comment on above: Performed By: #### 4 [id number] #### [facility] [address] [place] [address] URINALYSISOrdered By: SYSTEM SYSTEM on 03-24-2024 Bacteria [...] that meet specific criteria set forth by [facility]. Epithelial cells.squamous Auto (Urine sed) [#/Area] [...] 6-15 graded/HPF Invalid Interpretation Code 0-5graded/ HPF [facility] [place] UA Auto SS URINALYSISOrdered By: Tez Marks on 03-24-2024 UA Spec Desc Clean Catch (03/24/24 7:56 AM) Normal [facility] [place] UA Auto SS eGFRon 03-24-2024 eGFR 92 mL/min/1.73 m2 Normal >=59 [facility] Comment on above: Performed By: #### 1 [id number] #### [facility] [address] [place] [address] Urine Cytology ([facility])on 04-29-2023 Microscopic exam Cytology (U) [Interp] Diagnosis Info Invalid Interpretation Code [facility] Comment on above: Result Comment: A:Ur ine,Urine:Post Cystoscopy Void Interpretation - A few clusters of urothelial cells with mild atypia; as post cystoscopy voided urine, low grade papillary urothelial neoplasm can not be excluded. Clinical correlation is indicated. Adequate cellularity for evaluation. CPT 84099 MicroScopic Description - Adequacy - Gross Description Site ID:A color Yellow fixative Alcohol Specimen designated Urine received in alcohol preservative and labeled with the patient???s name, consists of 90ml clear yellow fluid. Electronically signed by : on: 02/27/2024 13:00:36 Performed By: #### 1 [id number] #### [facility] [address] [place] [address] Inpatient Patient Summaryon 02-24-2024 Inpatient Patient Summary Inpatient Patient Summary [address] [id number] Clinical Summary Person Information Name: MUNIRA CHESTER Age: 73 Years : 1950 Sex: Female PCP: ANDREA GOLDEN DO Marital Status: Race: White Ethnicity: Non- or Language: German Visit Id: Visit Reason: MIXED INCONTINENCE Speciality: Acuity: Enc Type: Outpatient Med Service: Surgery Arrival: 02/24/2024 09:03:30 Discharge: Dispo Type: Address: [address] [place] [id number] Provider Notes: Diagnosis: Intrinsic sphincter deficiency (ISD); [...] day. fluticasone nasal (fluticasone 0.05 mg/inh Nasal Thomson) 2 Sprays Nasal Inhalation every day. fluticasone [...] Information: EU - Cystoscopy Discharge Instructions (CUSTOM) [facility] Main OR Intraoperative Recor don 02-24-2024 Main OR Intraoperative Record Main OR Intraoperative Record IntraOp Document Type FTURO Summary Primary Physician: Asuncion Buchanan MD Finalized Date/Time: 02/24/24 10:21:12 Pt. Name: MUNIRA CHESTER/Sex: 1950 Female Med Rec #: [id number] Physician: Asuncion Buchanan MD Financial #: [id number] Pt. Type: O Room/Bed: / Admit/Disch: 02/24/24 [...] Kimberly A Role Performed Surgeon - Primary School Age Program Teacher - Primary Scrub - Primary Time In [...] Garcia 02/24/24 10:21 Libby Garcia 02/24/24 10:21 [facility] Main OR Preoperative Recordo n 02-24-2024 Main OR Preoperative Record Main OR Preoperative Record Holding Area Document Type FTURO Summary Primary Physician: Asuncion Buchanan MD Finalized Date/Time: 02/24/24 10:08:50 Pt. Name: MUNIRA CHESTER/Sex: 1950 Female Med Rec #: [id number] Physician: Asuncion Buchanan MD Financial #: [id number] Pt. Type: O Room/Bed: / Admit/Disch: 02/24/24 [...] Complaints of Pain: No Skin Integrity Intact, [place], Warm, & Dry Vitals - EU Blood Pressure 151/84 Pulse 73 bpm Respirations 18 br/min SPO2 98 % Additional None RN Reviewed Yes Specimens Collected Last Modified By: Libby Garcia 02/24/24 10:08:49 Finalized By: Libby Garcia Document Signatures Signed By: Meeta Valenzuela LPN 02/24/24 09:32 Libby Garcia 02/24/24 10:08 Normal [facility] Operative Reporton Operative Report Operative Report Patient: MUNIRA CHESTER Age: 73 years Sex: Female : 1950 Associated Diagnoses: None Author: Asuncion Buchanan MD Procedure Operative Information Details: Date/ Time: 02/24/2024 10:21:00. Pre-Op Dx: Mixed Urinary Incontinence - N39.46. 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 Anesthesia Type: Local. Procedure: [...] Bulkamid under anesthesia once biopsy results.. Normal [facility] Comment on above: Result Comment: Elec tronically Signed By: Dewayne VILLEGAS, Asuncion [place]\.br\Date and Time Signed: 02/24/24 10:26 EST Outpatient Surgery Discharge Instructionon 02-24-2024 Outpatient Surgery Discharge Instruction Outpatient Surgery Discharge Instruction [place] [id number] Patient Discharge Instructions PERSON INFORMATION Name: MUNIRA CHESTER Date of : 1950 Current Date: 02/24/2024 10:20:30 PHYSICIANS Admitting Physician: Dewayne VILLEGAS, Asuncion [place] Comment: Discharge Diagnosis: Intrinsic sphincter deficiency (ISD); [...] to serve you. Thank you for choosing [facility] Normal [facility] Urine Cytology ([facility])on 04-26-2023 Method of Extraction Post Cysto Void Normal [facility] Comment on above: Performed By: #### 1 [id number] #### [facility] [address] [place] [address] Number of Jars 1 Invalid Interpretation Code [facility] Comment on above: Performed By: #### 1 [id number] #### [facility] [address] [place] [address] Specimen Urine Normal [facility] Comment on above: Performed By: #### 1 [id number] #### [facility] [address] [place] [address] Type of Service Technical Only Normal [facility] Comment on above: Performed By: #### 1 [id number] #### [facility] [address] [place] [address] Urology Office/Clinic Noteon 02-05-2024 Urology Office/Clinic Note [...] sex consiste (more content not included)... Normal [facility] Comment on above: Result Comment: [...] Locations R1: This test was performed at: [facility], [address] [place] [address], [phone] , , [facility] Comment on above: Performed By: #### 2 [id number] #### [facility] [address] [place] [address] CNOVon 12-27-2023 CNOV Office Visit (GGENMN ) ----- MUNIRA CHESTER ([id number]) 1950 F Date Time Provider Department 12/27/23 [...] balloon enteroscopy Kasey Fallon MD 12/27/2023 Staff Emissions Inspector [facility] , REFERRING PROVIDER: [address] [facility] [address] REASON FOR REFERRAL: Small bowel stricture HISTORY: [...] (FLONASE) 50 mcg/actuation nasal spray Use 1 Thomson in each nostril once daily. atorvastatin (LIPITOR) [...] REFLUX HYPERTENSION (more content not included)... Normal [facility] CNPNon 12-25-2023 CNPN Telephone (GASTA5) ----- MUNIRA CHESTER ([id number]) 1950 F Date Time Provider Department 12/25/23 [...] or can cx. Call cell phone at [phone]. MARIA D Hilliard Ann, RN 12/26/2023 9:10 [...] Fully Assessed Reason for Visit: Patient Question [4267] Prescriptions as of 12/26/2023 - fluticasone-vilanterol (BREO ELLIPTA) 100-25 mcg/dose inhaler Inhale 1 Inhalation as instructed once daily. - Butalbital-Acetaminophen- Caff (FIORICET) 50-300-40 mg cap Take by mouth. - EPINEPHrine (EPIPEN) 0.3 mg/0.3 mL auto-injector Inject 0.3 mg intramuscularly as needed. - fluticasone (FLONASE) 50 mcg/actuation nasal spray Use 1 Thomson in each nostril once daily. - atorvastatin [...] Status:Closed by HOLLIS MCKEON on 12/25/23 Normal [facility] RF Small bowel Views W contr ast Rhys 12-24-2023 IMPRESSION: Slow tra nsit. No dilated small bowel. No visualized stricture. Lead Fire Protection Engineer: PSCB Transcribe Date/Time: Dec 24 2023 3:37P Dictated by : HAYDEN REEVES MD This examination was interpreted and the report reviewed and electronically signed by: HAYDEN REEVES MD on Dec 24 2023 3:40PM [facility] DIVISION OF RADIOLOGY * * *Final [...] Contrast: ORAL: 855 ml of EZPAQUE RESULT: Insulator Technician radiograph shows no dilated bowel loops. Right [...] Contrast: ORAL: 855 ml of EZPAQUE RESULT: Insulator Technician radiograph shows no dilated bowel loops. Right [...] No dilated small bowel. No visualized stricture. Lead Fire Protection Engineer: [facility] Transcribe Date/Time: Dec 24 2023 3:37P Dictated by : HAYDEN REEVES MD This examination was interpreted and the report reviewed and electronically signed by: HAYDEN REEVES MD on Dec 24 2023 3:40PM EST [facility] Radiology Study observation (narrative) Jose ramos [facility] RF Small bowel Views W contr ast POOrdered By: Ccf Provider on 12-24-2023 [facility] XR SMALL BOWEL SERIESon XR SMALL BOWEL [...] Contrast: ORAL: 855 ml of EZPAQUE RESULT: Insulator Technician radiograph shows no dilated bowel loops. Right [...] No dilated small bowel. No visualized stricture. Lead Fire Protection Engineer: PSCB Transcribe Date/Time: Dec 24 2023 3:37P Dictated by : HAYDEN REEVES MD This examination was interpreted and the report reviewed and electronically signed by: HAYDEN REEVES MD on Dec 24 2023 3:40PM EST [id number] Normal [facility]GASTA[facility] ----- MUNIRA CHESTER ([id number]) 1950 F Date Time Provider Department 12/04/23 [...] (FLONASE) 50 mcg/actuation nasal spray Use 1 Thomson in each nostril once daily. - atorvastatin [...] Status:Closed by HOLLIS MCKEON on 12/04/23 Normal [facility] Basophils Auto (Bld) [#/Vol] on 11-22-2023 Basophils (Bld) [#/Vol] Automated basophil count 0.0-0.1 [facility] Basophils/100 WBC Auto (Bld) on 11-22-2023 Basophils/100 WBC (Bld) Automated basophil % 0. 2-2.0 [facility] Eosinophils/100 WBC Auto (Bl d)on 11-22-2023 Eosinophils/100 WBC (Bld) Automated eosinophil % High 0.9-7.0 [facility] Erythrocyte distribution wid th Auto (RBC) [Ratio]on 11-22-2023 Erythrocyte distribution width (RBC) [Ratio] Erythrocyte distribution width [Ratio] by Automated count 11.0-15.0 [facility] Estimated glomerular filtrat ion rate (GFR) non- Americanon 11-22-2023 GFR/1.73 sq M.predicted among non-blacks MDRD (S/P/Bld) [Vol rate/Area] Estimated glomerular filtration rate (GFR) non- >=60 [facility] Globulin Calc (S) [Mass/Vol] on 11-22-2023 Globulin (S) [Mass/Vol] Serum globulin measurement by calculation (mass/volume) [facility] Hematocrit Auto (Bld) [Volum e fraction]on 11-22-2023 Hematocrit (Bld) [Volume fraction] Hematocrit [Volume Fraction] of Blood by Automated count 36.0-48.0 [facility] Hemoglobin [Mass/volume] in Bloodon 11-22-2023 Hemoglobin (Bld) [Mass/Vol] Hemoglobin [Mass/volume] in Blood 12.0-16.0 [facility] Iron binding capacity [Mass/ volume] in Serum or Plasmaon 11-22-2023 Iron binding capacity [Mass/Vol] Iron binding capacity [Mass/volume] in Serum or Plasma 250.0-450. 0 [facility] Iron saturation [Mass Fracti on] in Serum or Plasmaon 11-22-2023 Iron saturation [Mass fraction] Iron saturation [Mass Fraction] in Serum or Plasma [facility] - Chemistry and C hemistry - challengeon 11-22-2023 Albumin [Mass/Vol] 3.7 g/dL 3.4-5.0 [facility] ALP [Catalytic activity/Vol] 80 U/L 46-116 [facility] ALT [Catalytic activity/Vol] 26 U/L 14-59 [facility] AST [Catalytic activity/Vol] 21 U/L 15-37 [facility] Bilirubin [Mass/Vol] 0.5 mg/dL 0.2-1.0 [facility] Calcium [Mass/Vol] 9.0 mg/dL 8.5-10.1 [facility] Chloride [Moles/Vol] 104 mmol/L 98-107 [facility] CO2 [Moles/Vol] 29.7 mmol/L 21.0-32.0 [facility] Creatinine [Mass/Vol] 0.85 mg/dL 0.55-1.02 [facility] Ferritin [Mass/Vol] 30.0 ng/mL 8.0-252.0 [facility] GFR/1.73 sq M.predicted MDRD (S/P/Bld) [Vol rate/Area] mL/min/{1.73_m2} >=60 [facility] Glucose [Mass/Vol] 103 mg/dL 74-106 [facility] Iron [Mass/Vol] 71.0 ug/dL 50.0-170.0 [facility] Potassium [Moles/Vol] 3.6 mmol/L 3.5-5.1 [facility] Protein [Mass/Vol] 6.6 g/dL 6.4-8.2 [facility] Sodium [Moles/Vol] 143 mmol/L 136-145 [facility] Urea nitrogen [Mass/Vol] 16.0 mg/dL 7.0-18.0 [facility] Urea nitrogen/Creatinine [Mass ratio] 18.8 mg/mg [facility] - Hematology and Cell countson 11-22-2023 Immature granulocytes/100 WBC (Bld) 0.3 % 0.0-0.5 [facility] Leukocytes [#/volume] correc radha for nucleated erythrocytes in Blood by Automated counon 11-22-2023 WBC corrected for nucl RBC Auto (Bld) [#/Vol] Leukocytes [#/volume] corrected for nucleated erythrocytes in Blood by Automated coun 4.0-11.0 [facility] Lymphocytes Auto (Bld) [#/Vo l]on 11-22-2023 Lymphocytes (Bld) [#/Vol] Lymphocytes [#/volume] in Blood by Automated count 1.2-3.8 [facility] Lymphocytes/100 WBC Auto (Bl d)on 11-22-2023 Lymphocytes/100 WBC (Bld) Lymphocytes/100 leukocytes in Blood by Automated count 20.5-60.0 [facility] MCH Auto (RBC) [Entitic mass ]on 11-22-2023 MCH (RBC) [Entitic mass] MCH [Entitic ma ss] by Automated count 26.7-34.0 [facility] MCHC Auto (RBC) [Mass/Vol]on 11-22-2023 MCHC (RBC) [Mass/Vol] MCHC [Mass/volume] by Automated count 29.9-35.2 [facility] MCV Auto (RBC) [Entitic vol] on 11-22-2023 MCV (RBC) [Entitic vol] MCV [Entitic vol ume] by Automated count 81.0-99.0 [facility] Monocytes Auto (Bld) [#/Vol] on 11-22-2023 Monocytes (Bld) [#/Vol] Automated blood monocyte count 0.3-0.8 [facility] Monocytes/100 WBC Auto (Bld) on 11-22-2023 Monocytes/100 WBC (Bld) Automated monocyte % 1. 7-12.0 [facility] Neutrophils Auto (Bld) [#/Vo l]on 11-22-2023 Neutrophils (Bld) [#/Vol] Neutrophils [#/volume] in Blood by Automated count 1.4-6.5 [facility] Neutrophils/100 WBC Auto (Bl d)on 11-22-2023 Neutrophils/100 WBC (Bld) Automated neutrophil % 43.0-75.0 [facility] No Panel Informationon 11-21 Eosinophils # (Auto) 0.6 10 3/uL 0.0-0.7 [facility] Immature Granulocyte # (Auto) 0.02 10 3/uL 0.00-0.03 [facility] Platelet mean volume Auto (B ld) [Entitic vol]on 11-22-2023 Platelet mean volume (Bld) [Entitic vol] Platelet mean volume [Entitic volume] in Blood by Automated count 9.5-13.5 [facility] Platelets Auto (Bld) [#/Vol] on 11-22-2023 Platelets (Bld) [#/Vol] Platelets [#/vol ume] in Blood by Automated count 150-450 [facility] RBC Auto (Bld) [#/Vol]on RBC (Bld) [#/Vol] Erythrocytes [#/volu me] in Blood by Automated count 4.20-5.40 [facility] Serum or plasma albumin/glob ulin mass ratioon 11-22-2023 Albumin/Globulin [Mass ratio] Serum or plasma albumin/globulin mass ratio [facility] Serum or plasma anion gap de terminationon 11-22-2023 Anion gap [Moles/Vol] Serum or plasma an ion gap determination [facility] CNPNon 10-31-2023 CNPN Telephone (GASTA5) ----- MUNIRA CHESTER ([id number]) 1950 F Date Time Provider Department 10/31/23 [...] Fully Assessed Reason for Visit: Patient Question [4503] Prescriptions as of 10/31/2023 - fluticasone-vilanterol (BREO ELLIPTA) 100-25 mcg/dose inhaler Inhale 1 Inhalation as instructed once daily. - Butalbital-Acetaminophen- Caff (FIORICET) 50-300-40 mg cap Take by mouth. - EPINEPHrine (EPIPEN) 0.3 mg/0.3 mL auto-injector Inject 0.3 mg intramuscularly as needed. - fluticasone (FLONASE) 50 mcg/actuation nasal spray Use 1 Thomson in each nostril once daily. - atorvastatin [...] Encounter Status:Closed by REHANA HOANG on 10/31/23 [facility] MUNIRA CHESTER ([id number]) 1950 F Date Time Provider Department 10/16/23 [...] (FLONASE) 50 mcg/actuation nasal spray Use 1 Thomson in each nostril once daily. - atorvastatin [...] Status:Closed by HOLLIS MCKEON on 10/16/23 [facility] Physician Referralon 024 Physician Referral [id number]#1.00TIFF Normal [facility] Telephoneon 09-05-2023 Telephone [id number] Munira Chester 1950 F Date Provider Department [facility] No family history on file Normal [facility] Telephoneon 08-28-2023 Telephone [id number] Munira Chester 1950 F Date Provider Department [facility]20[facility] No family history on file Normal [facility] Physician Referralon 024 Physician Referral [id number]#1.00TIFF Normal [facility] Ambulatory Visit Summaryon 0 08-15-2023 [...] Tab) fluticasone nasal (fluticasone 0.05 mg/inh Nasal Thomson) fluticasone/umeclidinium/ vilanterol (Trelegy Ellipta) iron polysaccharide (Ferrex-150) [...] VILLEGAS, Asuncion [place] Where: [facility] Gastroenterology Office/Clin ic Noteon 08-15-2023 Gastroenterology [...] y (01/16/2015), (more content not included)... Normal [facility] Comment on above: Result Comment: [...] Hurst DO Transcribed by: SAHIL Technologist: KE [facility] Consent for Treatmenton Consent for Treatment [id number]#1.00TIFF [facility] Consent for Procedure/Surger yon 07-22-2023 Consent for Procedure/Surgery [id number]#1.00TIFF [facility] Nurse Consultation Noteon Nurse Consultation Note Assessment/Plan [...] Every other day fluticasone 0.05 mg/inh Nasal Thomson, 2 spray(s), Nasal, Daily Fosamax 70 mg [...] virus vaccine, inactivated 12/31/2022 Recorded SARS-CoV-2 (COVID-19) [id number].ORD![id number] 12/22/2021 Recorded influenza virus vaccine, inactivated 12/18/2021 [...] influenza virus vaccine, inactivated 01/04/2016 Recorded Normal [facility] XR Abdomen 1 Viewon 07-10-19 [...] mGy = na DAP = na Normal [facility] Consent for Treatmenton 06-16 Consent for Treatment [id number]#1.00TIFF Normal [facility] Nurse Consultation Noteon Nurse Consultation [...] Every other day fluticasone 0.05 mg/inh Nasal Thomson, 2 spray(s), Nasal, Daily Fosamax 70 mg [...] virus vaccine, inactivated 12/31/2022 Recorded SARS-CoV-2 (COVID-19) mRNAMUL.ORD![id number] 12/22/2021 Recorded influenza virus vaccine, inactivated 12/18/2021 [...] Recorded influenza virus vaccine, inactivated 01/04/2016 Recorded [facility] Physician Orderon 07-03-2023 Physician Order [id number]#1.00TIFF [facility] Albumin [Mass/volume] in Ser um or Plasmaon 07-02-2023 Albumin [Mass/Vol] 3.6 g/dL 2.9-4.4 [facility] IgA [Mass/volume] in Serum o r Plasmaon 07-02-2023 IgA [Mass/Vol] 83 mg/dL 87-352 [facility] IgE [Units/volume] in Serum or Plasmaon 07-02-2023 IgE Qn 119 [IU]/mL 6-495 [facility] Comment on above: Performed at: [facility] [employer] [address] [id number] Director: Chay Stewart MD, Phone: [phone] IgG [Mass/volume] in Serum o r Plasmaon 07-02-2023 IgG [Mass/Vol] 509 mg/dL [phone] [facility] IgM [Mass/volume] in Serum o r Plasmaon 07-02-2023 IgM [Mass/Vol] 51 mg/dL 26-217 [facility] Immunoglobulin light chains. kappa.free [Mass/volume] in Serumon 07-02-2023 Immunoglobulin light chains.kappa.free (S) [Mass/Vol] 12.1 mg/L 3.3-19.4 [facility] Immunoglobulin light chains. kappa.free/Immunoglobulin light chains.lambda.free [Yony 07-02-2023 Immunoglobulin light chains.kappa.free/Immuno globulin light chains.lambda.free (S) [Mass ratio] 1.13 0.26-1.65 [facility] Comment on above: Performed at: [facility] [employer] [address] [id number] Director: Bj Hair PhD, Phone: [phone] Immunoglobulin light chains. lambda.free [Mass/volume] in Serum or Plasmaon 07-02-2023 Immunoglobulin light chains.lambda.free [Mass/Vol] 10.7 mg/L 5.7-26.3 [facility] No Panel Informationon 07-01 Protein Electrophoresis M-Car Not Observed g/dL Not Observed [facility] Protein Electrophoresis Note Comment . [facility] Comment on above: Protein electrophore sis scan will follow via computer,mail, or candle wrapper delivery. Protein [Mass/volume] in Ser um or Plasmaon 07-02-2023 Protein [Mass/Vol] 6.1 g/dL 6.0-8.5 [facility] Serum globulin measurement ( mass/volume)on 07-02-2023 Globulin (S) [Mass/Vol] 2.5 g/dL 2.2-3.9 F [facility] Serum or plasma albumin/glob ulin mass ratioon 07-02-2023 Albumin/Globulin [Mass ratio] 1.5 {ratio} 0.7-1.7 [facility] Serum or plasma alpha 1 glob ulin measurement by electrophoresis (mass/volume)on 07-02-2023 Alpha 1 globulin Elph [Mass/Vol] 0.2 g/dL 0.0-0.4 [facility] Serum or plasma alpha 2 glob ulin measurement by electrophoresis (mass/volume)on 07-02-2023 Alpha 2 globulin Elph [Mass/Vol] 0.9 g/dL 0.4-1.0 [facility] Serum or plasma beta globuli n measurement by electrophoresis (mass/volume)on 07-02-2023 Beta globulin Elph [Mass/Vol] 0.9 g/dL 0.7-1.3 [facility] Serum or plasma gamma globul in measurement by electrophoresis (mass/volume)on 07-02-2023 Gamma globulin Elph [Mass/Vol] 0.5 g/dL 0.4-1.8 [facility] Serum or plasma immunoelectr ophoresis interpretationon 07-02-2023 Interpretation IEP [Interp] Comment . [facility] Comment on above: No monoclonality det ected. Basophils Auto (Bld) [#/Vol] on 06-27-2023 Basophils (Bld) [#/Vol] 0.0 10 3/uL 0.0-0.1 [facility] Basophils/100 WBC Auto (Bld) on 06-27-2023 Basophils/100 WBC (Bld) 0.2 % 0.2-2.0 F [facility] Eosinophils/100 WBC Auto (Bl d)on 06-27-2023 Eosinophils/100 WBC (Bld) 0.2 % 0.9-7.0 [facility] Erythrocyte distribution wid th Auto (RBC) [Ratio]on 06-27-2023 Erythrocyte distribution width (RBC) [Ratio] 19.9 % 11.0-15.0 [facility] Hematocrit Auto (Bld) [Volum e fraction]on 06-27-2023 Hematocrit (Bld) [Volume fraction] 36.9 % 36.0-48.0 [facility] Hemoglobin [Mass/volume] in Bloodon 06-27-2023 Hemoglobin (Bld) [Mass/Vol] 12.0 g/dL 12.0-16.0 [facility] Iron binding capacity [Mass/ volume] in Serum or Plasmaon 06-27-2023 Iron binding capacity [Mass/Vol] 279.0 ug/dL 250.0-450. 0 [facility] Iron saturation [Mass Fracti on] in Serum or Plasmaon 06-27-2023 Iron saturation [Mass fraction] 20.8 % [facility] Laboratory - Chemistry and C hemistry - challengeon 06-27-2023 Ferritin [Mass/Vol] 110.0 ng/mL 8.0-252.0 [facility] Iron [Mass/Vol] 58.0 ug/dL 50.0-170.0 [facility] Laboratory - Hematology and Cell countson 06-27-2023 Immature granulocytes/100 WBC (Bld) 1.4 % 0.0-0.5 [facility] Leukocytes [#/volume] correc radha for nucleated erythrocytes in Blood by Automated counon 06-27-2023 WBC corrected for nucl RBC Auto (Bld) [#/Vol] 11.8 10 3/uL 4.0-11.0 [facility] Lymphocytes Auto (Bld) [#/Vo l]on 06-27-2023 Lymphocytes (Bld) [#/Vol] 2.2 10 3/uL 1.2-3.8 [facility] Lymphocytes/100 WBC Auto (Bl d)on 06-27-2023 Lymphocytes/100 WBC (Bld) 18.3 % 20.5-60.0 [facility] MCH Auto (RBC) [Entitic mass ]on 06-27-2023 MCH (RBC) [Entitic mass] 28.6 pg 26.7-34.0 [facility] MCHC Auto (RBC) [Mass/Vol]on 06-27-2023 MCHC (RBC) [Mass/Vol] 32.5 g/dL 29.9-35.2 [facility] MCV Auto (RBC) [Entitic vol] on 06-27-2023 MCV (RBC) [Entitic vol] 87.9 fL 81.0-99.0 F [facility] Monocytes Auto (Bld) [#/Vol] on 06-27-2023 Monocytes (Bld) [#/Vol] 1.4 10 3/uL 0.3-0.8 [facility] Monocytes/100 WBC Auto (Bld) on 06-27-2023 Monocytes/100 WBC (Bld) 11.8 % 1.7-12.0 F [facility] Neutrophils Auto (Bld) [#/Vo l]on 06-27-2023 Neutrophils (Bld) [#/Vol] 8.0 10 3/uL 1.4-6.5 [facility] Neutrophils/100 WBC Auto (Bl d)on 06-27-2023 Neutrophils/100 WBC (Bld) 68.1 % 43.0-75.0 [facility] No Panel Informationon 06-26 Eosinophils # (Auto) 0.0 10 3/uL 0.0-0.7 [facility] Immature Granulocyte # (Auto) 0.17 10 3/uL 0.00-0.03 [facility] Platelet mean volume Auto (B ld) [Entitic vol]on 06-27-2023 Platelet mean volume (Bld) [Entitic vol] 9.7 fL 9.5-13.5 [facility] Platelets Auto (Bld) [#/Vol] on 06-27-2023 Platelets (Bld) [#/Vol] 378 10 3/uL 150-450 [facility] RBC Auto (Bld) [#/Vol]on RBC (Bld) [#/Vol] 4.20 10 6/uL 4.20-5.40 [facility] Gastroenterology Office/Clin ic Noteon 05-30-2023 Gastroenterology Office/Clinic [...] Every other day fluticasone 0.05 mg/inh Nasal Thomson, 2 spray(s), Nasal, Daily Fosamax 70 mg Tab, 70 mg= 1 tab(s), Oral, qWeek levothyroxine 88 mcg (0.088 mg) Tab, 88 mcg= 1 tab(s), Oral, Daily Macrobid 100 mg Cap, 100 mg= 1 cap(s), Oral, As Directed, 3 refills, Not (more content not included)... Normal [facility] Comment on above: Result Comment: [...] (05/22/2023), Co (more content not included)... Normal [facility] Comment on above: Result Comment: Elec tronically Signed By: Del Nettles MD\.br\Date and Time Signed: 05/30/23 08:34 EDT IntraOperative Documentson 0 05-29-2023 IntraOperative Documents [id number]#1.00TIFF Normal [facility] Main OR Intraoperative Recor don 05-24-2023 Main OR Intraoperative Record IntraOp Document Type FT Summary Primary Physician: Del Nettles MD Finalized Date/Time: 05/24/23 14:03:51 Pt. Name: MUNIRA CHESTER/Sex: 1950 Female Med Rec #: [id number] Physician: Del Nettles MD Financial #: [id number] Pt. Type: O Room/Bed: / Admit/Disch: 05/22/23 06:55:50 - 05/22/23 23:59:59 Institution: Case Times FT Entry 1 Patient Times In Room 05/22/23 08:12:00 Out Room 05/22/23 08:48:00 Procedure Times Start 05/22/23 08:17:00 Stop 05/22/23 08:45:00 Anesthesia Times Start 05/22/23 08:12:00 Stop 05/22/23 08:48:00 Time at [facility] 05/22/23 08:32:00 Last Modified By: Neli Butler RN 05/22/23 08:48:46 General Comments: 08 EGD completed. /,RN 0829 Colonoscopy started. /MD,RN 05/24/23 Chart opened to review and send charges LRoth CSFA Case Attendance FT Entry 1 Entry 2 Entry 3 Case Attendee Samara Goldstein CRNA, RN, Arelis Jenkins Role Performed RETAIL ATTENDANT School Age Program Teacher - Primary Scrub - Primary Time In [...] Goldstein CRNA, Given Participants Carrie KILLIAN, Neli F, MilesArelis Sparks, Micala E, Mouchli MD, Del Duckworth [...] and tissue Entry 1 Skin Integrity Intact, [place], Warm, and Skin Abnormality No Dry Outcomes Met? Yes Last Modified By: Neli Butler RN 05/22/23 08:18:09 Post-Care Text: The patient is free from signs and symptoms of injury caused by extraneous objects Patien (more content not included)... 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 / Confirmed Recurrent UTI / SNOMED CT 361987294 / Confirmed Osteopenia of lumbar spine / SNOMED CT 126973114 / Confirmed Nocturia / SNOMED CT 869306819 / Confirmed Mild persistent asthma / SNOMED CT 3897175140 / Confirmed Migraine / SNOMED CT 11859287 / Confirmed Microscopic hematuria / SNOMED CT 615876613 / Confirmed Lumbar spondylosis / SNOMED CT 311594793 / Confirmed Mixed incontinence / SNOMED CT 21437664 / Confirmed Hypertension / SNOMED CT 2551792698 / Confirmed Hyperlipidemia / SNOMED CT 45912059 / Confirmed Personal history of colonic polyps / SNOMED CT 9026390133 / Confirmed History of gastric ulcer / SNOMED CT 085119905 / Confirmed H/O gastric ulcer / SNOMED CT 154229783 / Confirmed Graves disease / SNOMED CT 717827223 / Confirmed GERD (gastroesophageal reflux disease) / SNOMED CT 163867051 / Confirmed Incomplete bladder emptying / SNOMED CT 549321578 / Confirmed Epigastric pain / SNOMED CT 910909121 / Confirmed Chronic tension headache / SNOMED CT 059285252 / Confirmed Cervical spondylosis / SNOMED CT 9563665832 / Confirmed Bilateral cataracts / SNOMED CT 875978440 / Confirmed Benign essential hypertension / SNOMED CT 0233411 / Confirmed Hypothyroidism, acquired, autoimmune / SNOMED CT 051469862 / Confirmed Asymptomatic microscopic hematuria / SNOMED CT 5288682860 / Confirmed Asthma / SNOMED CT 991037613 / Confirmed Arthritis / SNOMED CT 8649784 / Confirmed Acute allergic rhinitis due to pollen / SNOMED CT 26961650 / Confirmed Abdominal bloating / SNOMED CT 031846398 / Confirmed Resolved: Reflux of urine / SNOMED CT 4347248683 Histories Procedure history: Colonoscopy ([id number]) on 09/07/2019 at 69 Years. EGD - Esophagogastroduodenoscop y (2657435713) on 09/07/2019 at 69 Years. EGD - Esophagogastroduodenoscop y (3566906002) on 01/16/2015 at 64 Years. Colonoscopy (087788651) on 01/16/2015 at 64 Years. Comments: 08/31/2019 16:19 EDT - Tonie Barragan LPN normal EGD - Esophagogastroduodenoscop y (9017307009) on 08/17/2011 at 61 Years. EGD - Esophagogastroduodenoscop y (9646575673) on 05/17/2011 at 60 Years. Laparoscopic cholecystectomy (85073896) on 06/16/2010 at 59 Years. Colonoscopy (288463010) on 01/16/2010 at 59 Years. section (30407822). Rotator cuff repair (276921418). Tubal ligation (708175050). Cataracts (9538856410). Foot (34761899). Social History Social & Psychosocial Habits Alcohol 05/14/2023 Risk Assessment: Denies Alcohol Use Substance Abuse 05/14/2023 Risk Assessment: Denies Substance Abuse Tobacco 05/14/2023 Tobacco Use: Never (less than 100 in l Smokeless tobacco use: Never Concerns about tobacco use in household: No . Physical Examination Airway: Mallampati classification: II (soft palate, fauces, uvula visible). Respiratory: adequate air exchange. Cardiovascular: Regular rhythm. Plan [place] [employer]hesi[employer] (ASA) physical status classification: Class II. Anesthetic Preoperative Plan: Anesthesia General. Normal [facility] Comment on above: Result Comment: [...] when meets criteria ( To home ). [facility] Comment on above: Result Comment: Elec tronically Signed By: Lavelle Logan DO, Jay Jay Springer\.melissa\Date and Time Signed: 05/24/23 13:53 EST RAD - CT Reporton 05-24-2023 RAD - CT Report [id number]#1.00TIFF [facility] RAD - CT Report [id number]#1.00TIFF [facility] Consenton 05-23-2023 Consent [id number]#1.00TIFF [facility] Discharge Instructionson Discharge Instructions [id number]#1.00TIFF [facility] Postoperative Documentson Postoperative Documents [id number]#1.00TIFF [facility] Colonoscopy Procedure Report on 05-22-2023 Colonoscopy Procedure Report Patient: MUNIRA CHESTER Age: 72 years Sex: Female : 1950 Associated Diagnoses: None Author: Del Nettles MD Pre-Procedure Procedure Date 05/22/2023 08:47:00 . Procedure Type: Colonoscopy. Procedure provider wi. Current history and physical Colonoscopy ([id number]) on 09/07/2019 at 69 Years. EGD - Esophagogastroduodenoscop y (1770389666) on 09/07/2019 at 69 Years. EGD - Esophagogastroduodenoscop y (8719542871) on 01/16/2015 at 64 Years. Colonoscopy (902428369) on 01/16/2015 at 64 Years. Comments: 08/31/2019 16:19 Tonie Ro LPN normal EGD - Esophagogastroduodenoscop y (6428289265) on 08/17/2011 at 61 Years. EGD - Esophagogastroduodenoscop y (4574390194) on 05/17/2011 at 60 Years. Laparoscopic cholecystectomy (64853996) on 06/16/2010 at 59 Years. Colonoscopy (813571828) on 01/16/2010 at 59 Years. section (). Rotator cuff repair (379927854). Tubal ligation (445635793). Cataracts (0917710620). Foot (41759348).. Past Medical History Resolved Reflux of urine (3548297423): Resolved.. Family History Rheumatoid arthritis Mother Primary malignant neoplasm of lung Mother Diabetes mellitus type 2 Father Primary malignant neoplasm of female breast Sister . Procedure History Colonoscopy (274353610) on 09/07/2019 at 69 Years. EGD - Esophagogastroduodenoscop y (7790288174) on 09/07/2019 at 69 Years. EGD - Esophagogastroduodenoscop y (9343351020) on 01/16/2015 at 64 Years. Colonoscopy (204491352) on 01/16/2015 at 64 Years. Comments: 08/31/2019 16:19 Tonie Ro LPN normal EGD - Esophagogastroduodenoscop y (6606560936) on 08/17/2011 at 61 Years. EGD - Esophagogastroduodenoscop y (1537221942) on 05/17/2011 at 60 Years. Laparoscopic cholecystectomy (27753653) on 06/16/2010 at 59 Years. Colonoscopy (849025213) on 01/16/2010 at 59 Years. section (). Rotator cuff repair (775028415). Tubal ligation (384976177). Cataracts (5988059326). Foot (22715170).. Colorectal neoplasm risk assessment Average risk. Informed [...] # 30 cap(s), Refills(s) 3, Pharmacy: [facility], 158, cm, 02/20/23 8:48:00 EST, Height/Length Dosing, 68.5, kg,... Pantoprazole [address] Tab: 40 mg = 1 tab(s), Oral, Daily, # 90 tab(s), Refills(s) 1, Pharmacy: [facility] [facility], 154.9, cm, 12/11/19 9:26:00 EDT, Height/Length Dosing, 70.2, kg, 12/11/19 9:26:00 EDT, Weight Dosing estradiol 0.1 mg/g Vag Crm: See Instructions, 42.5 gm, Refill(s) 0, apply pea sized amount to urethra 2x/wk, [facility], 158, cm, 02/20/23 8:48:00 [...] of stomach acid fluticasone 0.05 mg/inh Nasal Thomson: 2 spray(s), Nasal, Daily, Refill(s) 0 levothyroxine [...] Findings Diverticul (more content not included)... Normal [facility] Comment on above: Other Comment: Alma enrique Attachment - attachment storage system not supported [id number] Can be viewed in source systemMissing Attachment - attachment storage system not supported [id number] Can be viewed in source systemMissing Attachment - attachment storage system not supported 7165760 Can be viewed in source systemMissing Attachment - attachment storage system not supported 9204316 Can be viewed in source systemMissing Attachment - attachment storage system not supported 2859611 Can be viewed in source systemMissing Attachment - attachment storage system not supported 4339931 Can be viewed in source systemMissing Attachment - attachment storage system not supported 8142956 Can be viewed in source systemMissing Attachment - attachment storage system not supported 9939385 Can be viewed in source system Consent for Treatmenton Consent for Treatment [id number]#1.00TIFF Alexandrea Garay [facility] Consultation Noteon 05-22-19 Consultation Note Patient: MUNIRA [...] # 30 cap(s), Refills(s) 3, Pharmacy: [facility], 158, cm, 02/20/23 8:48:00 EST, Height/Length Dosing, 68.5, kg,... Pantoprazole [address] Tab: 40 mg = 1 tab(s), Oral, Daily, # 90 tab(s), Refills(s) 1, [facility]acy: [facility], 154.9, cm, 12/11/19 9:26:00 EDT, Height/Length Dosing, 70.2, kg, 12/11/19 9:26:00 EDT, Weight Dosing estradiol 0.1 mg/g Vag Crm: See Instructions, 42.5 gm, Refill(s) 0, apply pea sized amount to urethra 2x/wk, [facility], 158, cm, 02/20/23 8:48:00 [...] of stomach acid fluticasone 0.05 mg/inh Nasal Thomson: 2 spray(s), Nasal, Daily, Refill(s) 0 levothyroxine [...] the duodenum Images Procedure images: Rec1_hd_video_2023__T _29_414.jpg Rec1_hd_video_2023__06T _44_784.jpg Rec1_hd_video_4__06T _53_345.jpg Rec1_hd_video_4__06T 08__03_390.jpg Rec1_hd_video_4__06T __23_607.jpg Rec1_hd_video_2023__06T 08__30_290.jpg Rec1_hd_video_4__06T 08__16_512.jpg Rec1_hd_video_2023_03_06T 08__56_296.jpg Rec1_hd_video_2023__06T 08__57_453.jpg Rec1_hd_video_2023_03_06T __31_556.jpg Rec1_hd_video_4_03_06T __57_490.jpg . Post-Procedure Complications: none. Estimated blood loss: none. Specimens: sent to pathology. Devices/ implants: none left in place. Impression and Plan EGD: Diagnosis: Bile reflux gastritis ([id number] K29.60, Working, Medical). Course: Progressing as expected. Education and Follow-up: Counseled: Family. Notes: Continue current medication Follow-up pathology report. might benefit from CT enterography versus capsule endoscopy in the future [facility] Comment on above: Result Comment: Elec tronically Signed By: MouchDel gong MD.\.br\Date and Time Signed: 05/22/23 09:05 EST Other Comment: Alma enrique Attachment - attachment storage system not supported [id number] Can be viewed in source systemMissing Attachment - attachment storage system not supported [id number] Can be viewed in source systemMissing Attachment - attachment storage system not supported [id number] Can be viewed in source systemMissing Attachment - attachment storage system not supported [id number] Can be viewed in source systemMissing Attachment - attachment storage system not supported [id number] Can be viewed in source systemMissing Attachment - attachment storage system not supported [id number] Can be viewed in source systemMissing Attachment - attachment storage system not supported [id number] Can be viewed in source systemMissing Attachment - attachment storage system not supported [id number] Can be viewed in source systemMissing Attachment - attachment storage system not supported [id number] Can be viewed in source systemMissing Attachment - attachment storage system not supported [id number] Can be viewed in source systemMissing Attachment - attachment storage system not supported [id number] Can be viewed in source system Consultation Note Patient: MUNIRA CHESTER Age: 72 years Sex: Female : 1950 Associated Diagnoses: None Author: Del Nettles MD Pre-Procedure Procedure Date 05/22/2023 08:47:00 . Procedure Type: Colonoscopy. Procedure provider me. Current history and physical Colonoscopy ([id number]) on 09/07/2019 at 69 Years. EGD - Esophagogastroduodenoscop y (6728807803) on 09/07/2019 at 69 Years. EGD - Esophagogastroduodenoscop y (5361709930) on 01/16/2015 at 64 Years. Colonoscopy ([id number]) on 01/16/2015 at 64 Years. Comments: 08/31/2019 16:19 EDT - Tonie Barragan LPN normal EGD - Esophagogastroduodenoscop y (4041851741) on 08/17/2011 at 61 Years. EGD - Esophagogastroduodenoscop y (1481627938) on 05/17/2011 at 60 Years. Laparoscopic cholecystectomy ([id number]) on 06/16/2010 at 59 Years. Colonoscopy ([id number]) on 01/16/2010 at 59 Years. section ([id number]). Rotator cuff repair (453060593). Tubal ligation (891187566). Cataracts (5418814592). Foot (07941118).. Past Medical History Resolved Reflux of urine (4416528232): Resolved.. Family History Rheumatoid arthritis Mother Primary malignant neoplasm of lung Mother Diabetes mellitus type 2 Father Primary malignant neoplasm of female breast Sister . Procedure History Colonoscopy ([id number]) on 09/07/2019 at 69 Years. EGD - Esophagogastroduodenoscop y (7520738852) on 09/07/2019 at 69 Years. EGD - Esophagogastroduodenoscop y (5771009406) on 01/16/2015 at 64 Years. Colonoscopy ([id number]) on 01/16/2015 at 64 Years. Comments: 08/31/2019 16:19 EDT - Tonie Barragan LPN normal EGD - Esophagogastroduodenoscop y (7884577391) on 08/17/2011 at 61 Years. EGD - Esophagogastroduodenoscop y (1373038661) on 05/17/2011 at 60 Years. Laparoscopic cholecystectomy ([id number]) on 06/16/2010 at 59 Years. Colonoscopy ([id number]) on 01/16/2010 at 59 Years. section (). Rotator cuff repair (308929783). Tubal ligation (154080540). Cataracts (9671901667). Foot (03898400).. Colorectal neoplasm risk assessment Average risk. Informed [...] # 30 cap(s), Refills(s) 3, Pharmacy: [facility], 158, cm, 02/20/23 8:48:00 EST, Height/Length Dosing, 68.5, kg,... Pantoprazole [address] Tab: 40 mg = 1 tab(s), Oral, Daily, # 90 tab(s), Refills(s) 1, Pharmacy: [address], 154.9, cm, 12/11/19 9:26:00 EDT, Height/Length Dosing, 70.2, kg, 12/11/19 9:26:00 EDT, Weight Dosing estradiol 0.1 mg/g Vag Crm: See Instructions, 42.5 gm, Refill(s) 0, apply pea sized amount to urethra 2x/wk, [facility], 158, cm, 02/20/23 8:48:00 [...] of stomach acid fluticasone 0.05 mg/inh Nasal Thomson: 2 spray(s), Nasal, Daily, Refill(s) 0 levothyroxine [...] well. Findings (more content not included)... Normal [facility] Comment on above: Result Comment: Elec tronically Signed By: Tho VILLEGAS, Del Duckworth\.br\Date and Time Signed: 05/22/23 08:51 EST error Other Comment: Alma enrique Attachment - attachment storage system not supported [id number] Can be viewed in source systemMissing Attachment - attachment storage system not supported [id number] Can be viewed in source systemMissing Attachment - attachment storage system not supported [id number] Can be viewed in source systemMissing Attachment - attachment storage system not supported [id number] Can be viewed in source systemMissing Attachment - attachment storage system not supported [id number] Can be viewed in source systemMissing Attachment - attachment storage system not supported [id number] Can be viewed in source systemMissing Attachment - attachment storage system not supported 2038025 Can be viewed in source systemMissing Attachment - attachment storage system not supported [id number] Can be viewed in source system Discharge [...] Tab) fluticasone nasal (fluticasone 0.05 mg/inh Nasal Thomson) fluticasone/umeclidinium/ vilanterol (Trelegy Ellipta) iron polysaccharide (Ferrex-150) [...] VILLEGAS, Asuncion [place] Where: [facility] Comment on above: Result Comment: Elec [...] Tab) fluticasone nasal (fluticasone 0.05 mg/inh Nasal Thomson) fluticasone/umeclidinium/ vilanterol (Trelegy Ellipta) iron polysaccharide (Ferrex-150) [...] Asuncion Buchanan MD Where: [facility] Comment on above: Result Comment: Elec [...] # 30 cap(s), Refills(s) 3, Pharmacy: [facility], 158, cm, 02/20/23 8:48:00 EST, Height/Length Dosing, 68.5, kg,... Pantoprazole [address] Tab: 40 mg = 1 tab(s), Oral, Daily, # 90 tab(s), Refills(s) 1, Pharmacy: [facility] [facility], 154.9, cm, 12/11/19 9:26:00 EDT, Height/Length Dosing, 70.2, kg, 12/11/19 9:26:00 EDT, Weight Dosing estradiol 0.1 mg/g Vag Crm: See Instructions, 42.5 gm, Refill(s) 0, apply pea sized amount to urethra 2x/wk, [facility], 158, cm, 02/20/23 8:48:00 [...] of stomach acid fluticasone 0.05 mg/inh Nasal Thomson: 2 spray(s), Nasal, Daily, Refill(s) 0 levothyroxine [...] duodenum Images Procedure images: Rec1_hd_video_2023___29_414.jpg Rec1_hd_video___44_784.jpg Rec1_hd_video___53_345.jpg Rec1_hd_video___03_390.jpg Rec1_hd_video__ 08_23_607.jpg Rec1_hd_video__ 08_30_290.jpg Rec1_hd_video__ 08_16_512.jpg Rec1_hd_video___56_296.jpg Rec1_hd_video___57_453.jpg Rec1_hd_video_2023___31_556.jpg Rec1_hd_video_2023__06T 08_29_57_490.jpg . Post-Procedure Complications: none. Estimated blood loss: none. Specimens: sent to pathology. Devices/ implants: none left in place. Impression and Plan EGD: Diagnosis: Bile reflux gastritis ([id number] K29.60, Working, Medical). Course: Progressing as expected. Education and Follow-up: Counseled: Family. Notes: Continue current medication Follow-up pathology report. [facility] Comment on above: Other Comment: Alma enrique Attachment - attachment storage system not supported [id number] Can be viewed in source systemMissing Attachment - attachment storage system not supported 7913108 Can be viewed in source systemMissing Attachment - attachment storage system not supported [id number] Can be viewed in source systemMissing Attachment - attachment storage system not supported 4617656 Can be viewed in source systemMissing Attachment - attachment storage system not supported [id number] Can be viewed in source systemMissing Attachment - attachment storage system not supported 5436679 Can be viewed in source systemMissing Attachment - attachment storage system not supported 6163037 Can be viewed in source systemMissing Attachment - attachment storage system not supported 5868307 Can be viewed in [facility] Attachment - attachment storage system not supported [id number] Can be viewed in source systemMissing Attachment - attachment storage system not supported [id number] Can be viewed in source systemMissing Attachment - attachment storage system not supported [id number] Can be viewed in source system Main OR PACU I Recordon Main OR PACU I Record PACU Phase I Docum ent Type FT Summary Primary Physician: Del Nettles MD Finalized Date/Time: 05/22/23 09:41:42 Pt. Name: MUNIRA CHESTER/Sex: 1950 Female Med Rec #: [id number] Physician: Del Nettles MD Financial #: [id number] Pt. Type: O Room/Bed: / Admit/Disch: 05/22/23 [...] Signed By: Nat Rodriguez I 05/22/23 09:41 [facility] Main OR Preoperative Recordo n 05-22-2023 Main OR Preoperative Record Holding Area Document Type FT Summary Primary Physician: Del Nettles MD Finalized Date/Time: 05/22/23 07:08:55 Pt. Name: MUNIRA CHESTER Aviva/Sex: 1950 Female Med Rec #: [id number] Physician: Del Nettles MD Financial #: [id number] Pt. Type: O Room/Bed: / Admit/Disch: 05/22/23 [...] By: Neli Butler RN 05/22/23 07:08 Normal [facility] Monitor Recordon 05-22-2023 Monitor Record [id number]#1.00TIFF Normal [facility] Monitor Record [id number]#1.00TIFF Normal [facility] Patient Education - Texton 0 05-22-2023 Patient [...] unsweetened, w/added ascorbic acid 1 cup 0.5 [place] 1 cup 0.7 Vegetables Cooked Green beans 1 cup 4.0 Carrots 1/2 cup sliced 2.3 Peas 1 cup 8.8 Potato (baked, with skin) 1 medium potato 3.8 Raw [place] (with peel) 1 cucumber 1.5 Lettuce 1 [...] 8.7 Peanuts 1/2 cup 7.9 [facility]MMEDI[facility] (more content not included)... Normal [facility] Consent for Procedure/Surger yon 05-16-2023 Consent for Procedure/Surgery [id number]#1.00TIFF [facility] Ambulatory Visit Summaryon 0 05-14-2023 Ambulatory Visit [...] Tab) fluticasone nasal (fluticasone 0.05 mg/inh Nasal Thomson) fluticasone/umeclidinium/ vilanterol (Trelegy Ellipta 200 mcg-62.5 mcg-25 [...] VILLEGAS, Asuncion [place] Where: [facility] Gastroenterology Office/Clin ic Noteon 05-14-2023 Gastroenterology [...] Tab, Oral, BID fluticasone 0.05 mg/inh Nasal Thomson, 2 spray(s), Nasal, Daily Fosamax 70 mg [...] virus vaccine, inactivated 12/31/2022 Recorded SARS-CoV-2 (COVID-19) [id number] 12/22/2021 Recorded influenza virus vaccine, inactivated 12/18/2021 Recorded SARS-CoV-2 (COVID-19) mRNA-1273 vaccine 07/04/2021 Recorded SARS-CoV-2 (COVID-19) mRNA-1273 vaccine 01/23/2021 Recorded influenza virus vaccine, inactivated 11/23/2020 Recorded SARS-CoV-2 (COVID-19) mRNA-1273 vaccine 06/02/2020 Recorded SARS-CoV-2 (COVID-19) mRNA-1273 vaccine 05/05/2020 Recorded SARS-CoV-2 (COVID-19) mRNA-1273 vaccine 2020 Recorded 3 shots to date infl (more content not included)... Normal [facility] Comment on above: Result Comment: Elec tronically Signed By: Tho VILLEGAS, Del Ledezma.br\Date and Time Signed: 05/14/23 13:06 EST Gastroenterology [...] anemia was found to be low around [place] time a new issue for her no [...] Tab, Oral, BID fluticasone 0.05 mg/inh Nasal Thomson, 2 spray(s), Nasal, Daily Fosamax 70 mg [...] - Denies (more content not included)... Normal [facility] Comment on above: Result Comment: Elec tronically Signed By: Tho VILLEGAS, Del Duckworth\.br\Date and Time Signed: 05/14/23 13:07 EST Physician Referralon 024 Physician Referral [id number]#1.00TIFF [facility] Ambulatory Visit Summaryon 1 04-23-2022 Ambulatory Visit Summary MUNIRA CHESTER :1950 Visit Date:02/20/2023 Ambulatory Visit Instructions Your Diagnosis Mixed incontinence Recurrent UTI Urethral caruncle Tests Performed Urnls Dip Stick Auto w/o Microscopy POC [id number] Your Care Team Attending Physician - Dewayne [...] Tab) fluticasone nasal (fluticasone 0.05 mg/inh Nasal Thomson) fluticasone/umeclidinium/ vilanterol (Trelegy Ellipta 200 mcg-62.5 mcg-25 [...] VILLEGAS, Asuncion [place] Where: [facility] Patient Educationon 02-21-20 23 Patient Education [...] pelvic muscle tension or spasms. ? Take jdez-awr-qazqnkv and prescription medicines only as told by [...] movement i (more content not included)... Normal [facility] Urology Office/Clinic Noteon 02-20-2023 Urology [...] Information Dewayne VILLEGAS, Asuncion [place], URL, [facility] [address] [place] [address] [phone] Additional Instructions: 1 yr Patient Education Pelvic Floor Dysfunction, Female Kegel Exercises IKimmie, personally scribed for Dr. Buchanan on 02/20/2023 09:52:34. . Documentation recorded by the scribKimmie calabrese, accurately reflects the services(s) I performed and decisions made by me. Authenticated by Dr. Buchanan on 02/20/2023 18:18:32. Problem List/Past Medical History Ongoing Abdominal bloating Acute allergic rhinitis due to pollen Arthritis Asthma Asymptomatic microscopic hematuria Benign essential hypertension Bilateral cataracts Cervical spondylosis Chronic tension headache Duodenal stricture Epigast (more content not included)... Normal [facility] Comment on above: Result Comment: Elec tronically Signed By: Asuncion Buchanan MD\.br\Date and Time Signed: 02/20/23 18:21 EST\.br\Electronically Co-Signed By: Kimmie Lemus\.br\Date and Time Co-Signed: 02/20/23 09:53 EST POINT OF CARE GLUCOSEon 03-18 Glucose [Mass/Vol] 94 mg/dL Normal 74-106 [facility] Comment on above: Performed By: #### P OCGLUC ####[facility] [address] [id number] Mario Glucose [Mass/Vol] 106 mg/dL Normal 74-106 [facility] Comment on above: Performed By: #### P OCGLUC ####[facility] [address] [address]DrJose Mario Covid-19 PCR (CVDTB)on 03-18 SARS-CoV-2 (COVID-19) RNA GIOVANI+probe Ql (Unsp spec) Not detected Normal NOT DETECTED [facility] Comment on above: Result Comment: This test is not yet approved or cleared by the [place] FDA. When there are no FDA-approved or cleared tests available, and other criteria are met, FDA can make tests available under an emergency access mechanism called an Emergency Use Authorization (EUA). The EUA for this test is supported by the [employer]idential [employer] of Health and Human Service's (HHS's) declaration [...] SARS-CoV-2. Performed By: #### C VDTBH #### [facility] [address] [address] [address] Dwight Mario PROF CHEM 8 (BAS METB)on Anion gap [Moles/Vol] 13.4 mmol/L Normal [facility] Comment on above: Performed By: #### B MP #### [facility] [address] [address] [address] Dwight Mario Calcium [Mass/Vol] 9.1 mg/dL Normal 8.5-10.1 [facility] Comment on above: Performed By: #### B MP #### [facility] [address] [address] [address] Dwight Mario Chloride [Moles/Vol] 107 mmol/L Normal 98-107 [facility] Comment on above: Performed By: #### B MP #### [facility] [address] [place] [address] Dr. Dwight Mario CO2 [Moles/Vol] 26.5 mmol/L Normal 21.0-32.0 [facility] Comment on above: Performed By: #### B MP #### [facility] [address] [place] [address] Dr. Dwight Mario Creatinine [Mass/Vol] 0.76 mg/dL Normal 0.55-1.02 [facility] Comment on above: Performed By: #### B MP #### [facility] [address] [place] [address] Dr. Dwight Mario EGFR-AF MONTENEGRIN >60 Normal >=60 [facility] Comment on above: Performed By: #### B MP #### [facility] [address] [place] [address] Dr. Dwight Mario EGFR-NON AF MONTENEGRIN >60 Normal >=60 [facility] Comment on above: Performed By: #### B MP #### [facility] [address] [address] [address] Dwight Mario Glucose [Mass/Vol] 108 mg/dL Critically high 74-106 [facility] Comment on above: Performed By: #### B MP #### [facility] [address] [place] [address] Dr. Dwight Mario Potassium [Moles/Vol] 3.9 mmol/L Normal 3.5-5.1 [facility] Comment on above: Performed By: #### B MP #### [facility] [address] [place] [address] Dr. Dwight Mario Sodium [Moles/Vol] 143 mmol/L Normal 136-145 [facility] Comment on above: Performed By: #### B MP #### [facility] [address] [place] [address] Dr. Dwight Mario Urea nitrogen [Mass/Vol] 25.0 mg/dL Critically high 7.0-18 .0 [facility] Comment on above: Performed By: #### B MP #### [facility] [address] [place] [address] Dr. Dwight Mario Urea nitrogen/Creatinine [Mass ratio] 32.9 mg/mg Normal [facility] Comment on above: Performed By: #### B MP #### [facility] [address] [place] [address] Dr. Dwight Mario CBC AUTO DIFFon 01-29-2022 BASO # 0.0 103/ul Normal 0.0-0.1 [facility] Comment on above: Performed By: #### C BC #### [facility] [address] [place] [address] Dr. Dwight Mario Basophils/100 WBC (Bld) 0.4 % Normal 0.2-2.0 [facility] Comment on above: Performed By: #### C BC #### [facility] [address] [place] [address] Dr. Dwight Mario EO # 0.3 103/ul Normal 0.0-0.7 [facility] Comment on above: Performed By: #### C BC #### [facility] [address] [place] [address] Dr. Dwight Mario Eosinophils/100 WBC (Bld) 2.8 % Normal 0.9-7.0 [facility] Comment on above: Performed By: #### C BC #### [facility] [address] [place] [address] Dr. Dwight Mario Erythrocyte distribution width (RBC) [Ratio] 14.0 % Normal 11.0-15.0 [facility] Comment on above: Performed By: #### C BC #### [facility] [address] [place] [address] Dr. Dwight Mario Hematocrit (Bld) [Volume fraction] 38.3 % Normal 36.0-48.0 [facility] Comment on above: Performed By: #### C BC #### [facility] [address] [place] [address] Dr. Dwight Mario Hemoglobin (Bld) [Mass/Vol] 12.6 g/dL Normal 12.0-16.0 [facility] Comment on above: Performed By: #### C BC #### [facility] [address] [place] [address] Dr. Dwight Mario IG # 0.03 10e3/ul Normal 0.00-0.03 [facility] Comment on above: Performed By: #### C BC #### [facility] [address] [place] [address] Dr. Dwight Mario IG % 0.3 % Normal 0.0-0.5 [facility] Comment on above: Performed By: #### C BC #### [facility] [address] [place] [address] Dr. Dwight Mario LYMPH # 2.9 103/ul Normal 1.2-3.8 [facility] Comment on above: Performed By: #### C BC #### [facility] [address] [place] [address] Dr. Dwight Mario Lymphocytes/100 WBC (Bld) 29.0 % Normal 20.5-60.0 [facility] Comment on above: Performed By: #### C BC #### [facility] [address] [place] [address] Dr. Dwight Mario MANUAL DIFF REQ NO Normal [facility] Comment on above: Performed By: #### C BC #### [facility] [address] [place] [address] Dr. Dwight Mario MCH (RBC) [Entitic mass] 30.3 pg Normal 26.7-34.0 [facility] Comment on above: Performed By: #### C BC #### [facility] [address] [address] [address] Dwight Mario MCHC (RBC) [Mass/Vol] 32.9 g/dL Normal 29.9-35.2 [facility] Comment on above: Performed By: #### C BC #### [facility] [address] [address] [address] Dwight Mario MCV (RBC) [Entitic vol] 92.1 fL Normal 81.0-99.0 [facility] Comment on above: Performed By: #### C BC #### [facility] [address] [place] [address] Dr. Dwight Mario MONO # 0.8 103/ul Normal 0.3-0.8 [facility] Comment on above: Performed By: #### C BC #### [facility] [address] [place] [address] Dr. Dwight Mario Monocytes/100 WBC (Bld) 7.9 % Normal 1.7-12.0 [facility] Comment on above: Performed By: #### C BC #### [facility] [address] [place] [address] Dr. Dwight Mario NEUT # 5.9 103/ul Normal 1.4-6.5 [facility] Comment on above: Performed By: #### C BC #### [facility] [address] [place] [address] Dr. Dwight Mario Neutrophils/100 WBC (Bld) 59.6 % Normal 43.0-75.0 [facility] Comment on above: Performed By: #### C BC #### [facility] [address] [place] [address] Dr. Dwight Mario Platelet mean volume (Bld) [Entitic vol] 9.4 fL Critically low 9.5-13.5 [facility] Comment on above: Performed By: #### C BC #### [facility] [address] [place] [address] Dr. Dwight Mario PLT 385 103/ul Normal 150-450 [facility] Comment on above: Performed By: #### C BC #### [facility] [address] [address] [address] Dwight Mario RBC 4.16 106/ul Critically low 4.20-5.40 [facility] Comment on above: Performed By: #### C BC #### [facility] [address] [address] [address] Dwight Mario WBC 10.0 103/ul Normal 4.0-11.0 [facility] Comment on above: Performed By: #### C BC #### [facility] [address] [address] [address] Dwight Mario LIPID PROFILEon 01-29-2022 CHOL-HDL RATIO NORM SEE BELOW Normal [facility] Comment on above: Result Comment: 3.3 - 4.4 LOW RISK 4.4 - 7.1 AVERAGE RISK 7.1 - 11.0 MODERATE RISK >11.0 HIGH RISK Performed By: #### L IPID, BMP, ALT, TSH ####[facility] [address] [address]Dr. Dwight Mario Cholesterol [Mass/Vol] 184 mg/dL Normal <=200 [facility] Comment on above: Performed By: #### L IPID, BMP, ALT, TSH ####[facility] [address] [address]Dr. Dwight Mario Cholesterol in HDL [Mass/Vol] 61 mg/dL Critically high 40-60 [facility] Comment on above: Performed By: #### L IPID, BMP, ALT, TSH ####[facility] [address] [id number]. Dwight Mario Cholesterol in LDL [Mass/Vol] 96.0 mg/dL Normal [facility] Comment on above: Performed By: #### L IPID, BMP, ALT, TSH ####[facility] [address] [address]Dr. Dwight Mario Cholesterol.total/Choles terol in HDL [Mass ratio] 3.0 {ratio} Normal [facility] Comment on above: Performed By: #### L IPID, BMP, ALT, TSH ####[facility] [address] [id number]. Dwight Mario HDL NORMAL > or = 60 mg/dl - LO W CARDIOVASCULAR RISK <40 mg/dl - HIGH CARDIOVASCULAR RISK Normal [facility] Comment on above: Performed By: #### L IPID, BMP, ALT, TSH ####[facility] [address] [address]Dr. Dwight Mario LDL CALC NORMAL SEE BELOW Normal [facility] Comment on above: Result Comment: <100 mg/dl OPTIMAL 100 - 129 mg/dl NEAR OR ABOVE OPTIMAL 130 - 159 mg/dl BORDERLINE HIGH 160 - 189 mg/dl HIGH >190 mg/dl VERY HIGH Performed By: #### L IPID, BMP, ALT, TSH ####[facility] [address] [address]Dr. Dwight Mario Triglyceride [Mass/Vol] 135 mg/dL Normal <=150 T [facility] Comment on above: Performed By: #### L IPID, BMP, ALT, TSH ####[facility] [address] [address]Dr. Dwight Mario VLDL CALC 27.0 mg/dL Normal [facility] Comment on above: Performed By: #### L IPID, BMP, ALT, TSH ####[facility] [address] [address]Dr. Dwight Fabiano MG MAMM SCREEN 3D ALLEGRA CADon 01-29-2022 MG MAMM SCREEN 3D ALLEGRA CAD Patient: MUNIRA CHESTER Exam Date: 01/29/2022 : 1950 Gender:F Ordering : DR ANDREA PinkOJose Admission #: [id number] Family : DR. MADISON BURNS D.O. Order #: [id number] CLICK HERE TO VIEW EXAM RADIOLOGY REPORT [...] breast cancer at age 61. LOCATION: [facility] BREAST COMPOSITION: Scattered areas fibroglandular density. [...] MD on 01/29/2022 at 15:25 Normal [facility] PROF CHEM 8 (BAS METB)on Anion gap [Moles/Vol] 9.7 mmol/L Normal [facility] Comment on above: Performed By: #### L IPID, BMP, ALT, TSH ####[facility] [address] [place] [address]Dr. Dwight Mario Calcium [Mass/Vol] 8.9 mg/dL Normal 8.5-10.1 [facility] Comment on above: Performed By: #### L IPID, BMP, ALT, TSH ####[facility] [address] [place] [address]Dr. Dwight Mario Chloride [Moles/Vol] 105 mmol/L Normal 98-107 [facility] Comment on above: Performed By: #### L IPID, BMP, ALT, TSH ####[facility] [address] [place] [address]Dr. Dwight Mario CO2 [Moles/Vol] 27.3 mmol/L Normal 21.0-32.0 [facility] Comment on above: Performed By: #### L IPID, BMP, ALT, TSH ####[facility] [address] [place] [address]Dr. Dwight Mario Creatinine [Mass/Vol] 0.80 mg/dL Normal 0.55-1.02 [facility] Comment on above: Performed By: #### L IPID, BMP, ALT, TSH ####[facility] [address] [place] [address]Dr. Dwight Mario EGFR-AF MONTENEGRIN >60 Normal >=60 [facility] Comment on above: Performed By: #### L IPID, BMP, ALT, TSH ####[facility] [address] [place] [address]Dr. Dwight Mario EGFR-NON AF MONTENEGRIN >60 Normal >=60 [facility] Comment on above: Performed By: #### L IPID, BMP, ALT, TSH ####[facility] [address] [place] [address]Dr. Dwight Mario Glucose [Mass/Vol] 107 mg/dL Critically high 74-106 T [facility] Comment on above: Performed By: #### L IPID, BMP, ALT, TSH ####[facility] [address] [place] [address]Dr. Dwight Mario Potassium [Moles/Vol] 4.0 mmol/L Normal 3.5-5.1 [facility] Comment on above: Performed By: #### L IPID, BMP, ALT, TSH ####[facility] [address] [place] [address]Dr. Dwight Mario Sodium [Moles/Vol] 138 mmol/L Normal 136-145 [facility] Comment on above: Performed By: #### L IPID, BMP, ALT, TSH ####[facility] [address] [place] [address]Dr. Dwight Mario Urea nitrogen [Mass/Vol] 20.0 mg/dL Critically high 7.0-18 .0 [facility] Comment on above: Performed By: #### L IPID, BMP, ALT, TSH ####[facility] [address] [place] [address]Dr. Dwight Mario Urea nitrogen/Creatinine [Mass ratio] 25.0 mg/mg Normal [facility] Comment on above: Performed By: #### L IPID, BMP, ALT, TSH ####[facility] [address] [place], [place] [address]Lf. Dwight Mario SGPTon 01-29-2022 ALT [Catalytic activity/Vol] 26 U/L Normal 14-59 [facility] Comment on above: Performed By: #### L IPID, BMP, ALT, TSH ####[facility] [address] [place], [place] [address]Uo. Dwight Mario TSHon 01-29-2022 TSH 5.901 uIU/mL Critically high 0.358-3.74 0 [facility] Comment on above: Performed By: #### L IPID, BMP, ALT, TSH ####[facility] [address] [place], [place] [address]Is. Dwight Mario XR shoulder LT min 2V*on XR shoulder LT min 2V* [facility] [address] [place] [address] [place] [address] XRay Report Signed Patient: Munira Chester MR#: [id number] : 1950 Acct:[id number] Age/Sex: 71 / F ADM Date: 10/10/21 Loc: [facility] Room: Type: [facility] Attending Dr: Espinoza Ruiz MD Copies [...] Abelino Prado M.D.10/10/2021 1:25 PM Dictation Location: [place] [address] Transcribed By: [facility] 10/10/21 1325 Dictated By: Abelino Prado II, MD 10/10/21 1324 Signed By: 10/10/[address] [facility] MRI SHOULDER LT WO CONon MRI [...] by: YOVANA COTTRELL Date: 2021-10-03 15:02 Normal [facility] Vital Signs Date Time Vital Sign Value Performing Clinician Facility 12-22-2024 09:52-0400 Body height 154.94 cm Andrea Ball DO Work Phone: [facility] 12-22-2024 09:52-0400 Body mass index (BMI) [Ratio] 32.1 kg/m2 Andrea Ball DO Work Phone: [facility] 12-22-2024 09:52-0400 Body weight 77.11 kg Andrea Ball DO Work Phone: [facility] 12-22-2024 09:52-0400 Diastolic blood pressure 83 mm[Hg] Andrea Ball DO Work Phone: [facility] 12-22-2024 09:52-0400 Heart rate 97 /min Andrea Ball DO Work Phone: [facility] 12-22-2024 09:52-0400 Respiratory rate 12 /min Andrea Ball DO Work Phone: [facility] 12-22-2024 09:52-0400 Systolic blood pressure 131 mm[Hg] Andrea Ball DO Work Phone: [facility] 08-05-2024 14:20-0400 Blood Pressure Location Del Nettles [facility] 08-05-2024 14:20-0400 Diastolic blood pressure 82 mm[Hg] Del Nettles [facility] 08-05-2024 14:20-0400 Heart rate 82 /min Del Nettles [facility] 08-05-2024 14:20-0400 Respiratory rate 14 /min Del Nettles [facility] 08-05-2024 14:20-0400 Systolic blood pressure 127 mm[Hg] Del Nettles [facility] 07-13-2024 15:50-0400 Diastolic blood pressure 84 mm[Hg] Kasey Fallon MD Work Phone: [facility] 07-13-2024 15:50-0400 Heart rate 68 /min Kasey Fallon MD Work Phone: [facility] 07-13-2024 15:50-0400 SaO2% (BldA) [Mass fraction] 94 % Kasey Fallon MD Work Phone: [facility] 07-13-2024 15:50-0400 Systolic blood pressure 136 mm[Hg] Kasey Fallon MD Work Phone: [facility] 07-13-2024 15:20-0400 Body temperature 97.7 [degF] Kasey Fallon MD Work Phone: [facility] 07-13-2024 15:20-0400 Respiratory rate 18 /min Kasey Fallon MD Work Phone: [facility] 07-13-2024 12:52-0400 Body height 160 cm Kasey Fallon MD Work Phone: [facility] 07-13-2024 12:52-0400 Body mass index (BMI) [Ratio] 29.23 kg/m2 Kasey Fallon MD Work Phone: [facility] 07-13-2024 12:52-0400 Body weight 74.84 kg Kasey Fallon MD Work Phone: [facility] 06-02-2024 10:08-0400 Heart rate 75 /min [facility] 06-02-2024 10:08-0400 SaO2% (BldA) [Mass fraction] 97 % [facility] 06-02-2024 10:08-0400 Diastolic blood pressure 78 mm[Hg] [facility] 06-02-2024 10:08-0400 Mean blood pressure 95 mm[Hg] [facility] 06-02-2024 10:08-0400 Systolic blood pressure 130 mm[Hg] [facility] 06-02-2024 09:13-0400 Heart rate 73 /min [facility] 06-02-2024 09:13-0400 SaO2% (BldA) [Mass fraction] 95 % [facility] 06-02-2024 09:13-0400 Diastolic blood pressure 64 mm[Hg] [facility] 06-02-2024 09:13-0400 Mean blood pressure 79 mm[Hg] [facility] 06-02-2024 09:13-0400 Systolic blood pressure 110 mm[Hg] [facility] 06-02-2024 09:03-0400 Blood Pressure Location [facility] L[facility] 06-02-2024 09:03-0400 Body temperature 97.7 [degF] [facility] 06-02-2024 09:03-0400 Diastolic blood pressure 65 mm[Hg] [facility] 06-02-2024 09:03-0400 Heart rate 64 /min [facility] 06-02-2024 09:03-0400 Mean blood pressure 80 mm[Hg] [facility] 06-02-2024 09:03-0400 Respiratory rate 16 /min [facility] 06-02-2024 09:03-0400 SaO2% (BldA) [Mass fraction] 96 % [facility] 06-02-2024 09:03-0400 Systolic blood pressure 110 mm[Hg] [facility] 06-02-2024 08:51-0400 Blood Pressure Location [facility] 06-02-2024 08:51-0400 Mean blood pressure 77 mm[Hg] [facility] 06-02-2024 08:51-0400 Respiratory rate 10 /min [facility] 06-02-2024 08:46-0400 Blood Pressure Location [facility] 06-02-2024 08:46-0400 Mean blood pressure 72 mm[Hg] [facility] 06-02-2024 08:46-0400 Respiratory rate 9 /min [facility] 06-02-2024 08:36-0400 Body temperature 97.52 [degF] [facility] 06-02-2024 08:30-0400 Respiratory rate 17 /min [facility] 06-02-2024 08:25-0400 Respiratory rate 12 /min [facility] 06-02-2024 08:20-0400 Respiratory rate 20 /min [facility] 06-02-2024 06:36-0400 Mean blood pressure 81 mm[Hg] [facility] 06-02-2024 06:36-0400 Heart rate 62 /min [facility] 06-02-2024 06:35-0400 Body temperature 97.7 [degF] [facility] 05-20-2024 07:38-0500 Blood Pressure Location [facility] 05-20-2024 07:38-0500 Diastolic blood pressure 72 mm[Hg] [facility] 05-20-2024 07:38-0500 Heart rate 80 /min [facility] 05-20-2024 07:38-0500 Mean blood pressure 96 mm[Hg] [facility] 05-20-2024 07:38-0500 Systolic blood pressure 144 mm[Hg] [facility] 05-20-2024 07:37-0500 Heart rate 78 /min [facility] 05-20-2024 07:37-0500 SaO2% (BldA) [Mass fraction] 98 % [facility] 05-20-2024 07:37-0500 Respiratory rate 18 /min [facility] 05-20-2024 07:36-0500 Blood Pressure Location [facility] 05-20-2024 07:36-0500 Diastolic blood pressure 80 mm[Hg] [facility] 05-20-2024 07:36-0500 Mean blood pressure 104 mm[Hg] [facility] 05-20-2024 07:36-0500 Systolic blood pressure 151 mm[Hg] [facility] 04-30-2024 09:01-0500 Body height 157.5 cm Charito Vasquez MD Work Phone: [facility] 04-30-2024 09:01-0500 Body mass index (BMI) [Ratio] 30 kg/m2 Charito Vasquez MD Work Phone: [facility] 04-30-2024 09:01-0500 Body weight 74.39 kg Charito Vasquez MD Work Phone: [facility] 04-22-2024 10:50-0500 Blood Pressure Location Asuncion Lue [facility] 04-22-2024 10:50-0500 Diastolic blood pressure 66 mm[Hg] [facility]uncion Lue [facility] 04-22-2024 10:50-0500 Heart rate 68 /min Asuncion Lue [facility] 04-22-2024 10:50-0500 Systolic blood pressure 126 mm[Hg] Asuncion Lue [facility] 04-16-2024 10:59-0500 Body mass index (BMI) [Ratio] 30 kg/m2 Madison Burns DO Work Phone: [facility] 01-30-2025 10:59-0500 Body weight 74.39 kg Madison Rinkes DO Work Phone: [facility] 04-16-2024 10:59-0500 Diastolic blood pressure 76 mm[Hg] Madison Rinkes DO Work Phone: [facility] 04-16-2024 10:59-0500 Systolic blood pressure 130 mm[Hg] Madison Rinkes DO Work Phone: [facility] 04-07-2024 12:01-0500 Heart rate 77 /min [facility] 04-07-2024 12:01-0500 SaO2% (BldA) [Mass fraction] 95 % [facility] 04-07-2024 12:01-0500 Diastolic blood pressure 84 mm[Hg] [facility] 04-07-2024 12:01-0500 Mean blood pressure 108 mm[Hg] [facility] 04-07-2024 12:01-0500 Systolic blood pressure 156 mm[Hg] [facility] 04-07-2024 12:01-0500 Respiratory rate 16 /min [facility] 04-07-2024 11:07-0500 Heart rate 64 /min [facility] 04-07-2024 11:07-0500 SaO2% (BldA) [Mass fraction] 97 % [facility] 04-07-2024 11:05-0500 Respiratory rate 16 /min [facility] 04-07-2024 11:05-0500 Diastolic blood pressure 76 mm[Hg] [facility] 04-07-2024 11:05-0500 Mean blood pressure 94 mm[Hg] [facility] 04-07-2024 11:05-0500 Systolic blood pressure 131 mm[Hg] [facility] 04-07-2024 10:48-0500 Body temperature 97.7 [degF] [facility] 04-07-2024 10:48-0500 Diastolic blood pressure 83 mm[Hg] [facility] 04-07-2024 10:48-0500 Heart rate 63 /min [facility] 04-07-2024 10:48-0500 Mean blood pressure 103 mm[Hg] [facility] 04-07-2024 10:48-0500 Respiratory rate 21 /min [facility] 04-07-2024 10:48-0500 SaO2% (BldA) [Mass fraction] 97 % [facility] 04-07-2024 10:48-0500 Systolic blood pressure 142 mm[Hg] [facility] 04-07-2024 10:35-0500 Mean blood pressure 92 mm[Hg] [facility] 04-07-2024 10:35-0500 Respiratory rate 12 /min [facility] 04-07-2024 10:30-0500 Mean blood pressure 94 mm[Hg] [facility] 04-07-2024 10:30-0500 Respiratory rate 10 /min [facility] 04-07-2024 10:23-0500 Blood Pressure Location [facility] 04-07-2024 10:23-0500 Body temperature 97.52 [degF] [facility] 04-07-2024 10:15-0500 Respiratory rate 3 /min [facility] 04-07-2024 07:38-0500 Mean blood pressure 92 mm[Hg] [facility] 03-24-2024 07:32-0500 Blood Pressure Location [facility] 03-24-2024 07:32-0500 Diastolic blood pressure 79 mm[Hg] [facility] 03-24-2024 07:32-0500 Heart rate 87 /min [facility] 03-24-2024 07:32-0500 Mean blood pressure 101 mm[Hg] [facility] 03-24-2024 07:32-0500 Systolic blood pressure 145 mm[Hg] [facility] 03-24-2024 07:32-0500 Heart rate 85 /min [facility] 03-24-2024 07:32-0500 SaO2% (BldA) [Mass fraction] 98 % [facility] 03-24-2024 07:32-0500 Respiratory rate 18 /min [facility] 03-24-2024 07:32-0500 Blood Pressure Location [facility] 03-24-2024 07:32-0500 Diastolic blood pressure 76 mm[Hg] [facility] 03-24-2024 07:32-0500 Mean blood pressure 98 mm[Hg] [facility] 03-24-2024 07:32-0500 Systolic blood pressure 141 mm[Hg] [facility] 02-05-2024 11:04-0500 Blood Pressure Location [facility]ion Lue [facility] 02-05-2024 11:04-0500 Diastolic blood pressure 78 mm[Hg] [facility] 02-05-2024 11:04-0500 Heart rate 60 /min [facility] 02-05-2024 11:04-0500 Systolic blood pressure 90 mm[Hg] [facility]uncion Lue [facility] 02-05-2024 08:33-0500 Body height 154.94 cm [facility] 02-05-2024 08:33-0500 Body mass index (BMI) [Ratio] 31.6 kg/m2 [facility] 02-05-2024 08:33-0500 Body weight 75.8 kg [facility] 02-05-2024 08:33-0500 Diastolic blood pressure 71 mm[Hg] [facility] 02-05-2024 08:33-0500 Heart rate 73 /min [facility] 02-05-2024 08:33-0500 Respiratory rate 12 /min [facility] 02-05-2024 08:33-0500 Systolic blood pressure 147 mm[Hg] [facility] 12-27-2023 14:40-0400 Body height 157.5 cm Kasey Fallon MD Work Phone: [facility] 12-27-2023 14:40-0400 Body mass index (BMI) [Ratio] 30.36 kg/m2 Kasey Fallon MD Work Phone: [facility] 12-27-2023 14:40-0400 Body temperature 98.29 [degF] Kasey Fallon MD Work Phone: [facility] 12-27-2023 14:40-0400 Body weight 75.3 kg Kasey Fallon MD Work Phone: [facility] 12-27-2023 14:40-0400 Diastolic blood pressure 72 mm[Hg] Kasey Fallon MD Work Phone: [facility] 12-27-2023 14:40-0400 Heart rate 68 /min Kasey Fallon MD Work Phone: [facility] 12-27-2023 14:40-0400 SaO2% (BldA) [Mass fraction] 95 % Kasey Fallon MD Work Phone: [facility] 12-27-2023 14:40-0400 Systolic blood pressure 136 mm[Hg] Kasey Fallon MD Work Phone: [facility] 09-14-2023 09:32-0400 Body height 160 cm Jhonny Maher MD Work Phone: [facility] 09-14-2023 09:32-0400 Body mass index (BMI) [Ratio] 28.71 kg/m2 Jhonny Maher MD Work Phone: [facility] 09-14-2023 09:32-0400 Body weight 73.53 kg Jhonny Maher MD Work Phone: [facility] 08-20-2023 15:47-0400 Body height 154.94 cm [facility] 08-20-2023 15:47-0400 Body mass index (BMI) [Ratio] 29.7 kg/m2 [facility] 08-20-2023 15:47-0400 Body temperature 97.5 [degF] [facility] 08-20-2023 15:47-0400 Body weight 71.44 kg [facility] 08-20-2023 15:47-0400 Diastolic blood pressure 77 mm[Hg] [facility] 08-20-2023 15:47-0400 Heart rate 88 /min [facility] 08-20-2023 15:47-0400 Respiratory rate 18 /min [facility] 08-20-2023 15:47-0400 SaO2% (BldA) [Mass fraction] 94 % [facility] 08-20-2023 15:47-0400 Systolic blood pressure 127 mm[Hg] [facility] 08-15-2023 08:14-0400 Blood Pressure Location [employer] [facility] 08-15-2023 08:14-0400 Diastolic blood pressure 75 mm[Hg] [employer] [facility] 08-15-2023 08:14-0400 Heart rate 80 /min [employer] Bety[employer]ana [facility] 08-15-2023 08:14-0400 Respiratory rate 16 /min [employer] Betyah[employer]ana [facility] 08-15-2023 08:14-0400 Systolic blood pressure 126 mm[Hg] [employer] Bety[employer]ana [facility] 06-21-2023 14:42-0400 Body height 154.94 cm [facility] 06-21-2023 14:42-0400 Body mass index (BMI) [Ratio] 29.3 kg/m2 [facility] 06-21-2023 14:42-0400 Body weight 70.53 kg [facility] 06-21-2023 14:42-0400 Diastolic blood pressure 79 mm[Hg] [facility] 06-21-2023 14:42-0400 Heart rate 81 /min [facility] 06-21-2023 14:42-0400 Respiratory rate 20 /min [facility] 06-21-2023 14:42-0400 SaO2% (BldA) [Mass fraction] 98 % [facility] 06-21-2023 14:42-0400 Systolic blood pressure 138 mm[Hg] [facility] 05-30-2023 08:08-0400 Blood Pressure Location Mohamad Mouchli [facility] 05-30-2023 08:08-0400 Diastolic blood pressure 78 mm[Hg] Mohamad Mouchli [facility] 05-30-2023 08:08-0400 Heart rate 80 /min Mohamad Mouchli [facility] 05-30-2023 08:08-0400 Respiratory rate 16 /min Mohamad Mouchli [facility] 05-30-2023 08:08-0400 Systolic blood pressure 126 mm[Hg] Mohamad Mouchli [facility] 05-22-2023 09:15-0500 Diastolic blood pressure 75 mm[Hg] Mohamad Mouchli [facility] 05-22-2023 09:15-0500 Heart rate 62 /min Mohamad Mouchli [facility] 05-22-2023 09:15-0500 Mean blood pressure 87 mm[Hg] Mohamad Mouchli [facility] 05-22-2023 09:15-0500 Respiratory rate 19 /min Mohamad Mouchli [facility] 05-22-2023 09:15-0500 SaO2% (BldA) [Mass fraction] 96 % Mohamad Mouchli [facility] 05-22-2023 09:15-0500 Systolic blood pressure 112 mm[Hg] Mohamad Mouchli [facility] 05-22-2023 09:05-0500 Diastolic blood pressure 71 mm[Hg] Mohamad Mouchli [facility] 05-22-2023 09:05-0500 Heart rate 65 /min Mohamad Mouchli [facility] 05-22-2023 09:05-0500 Mean blood pressure 84 mm[Hg] Mohamad Mouchli [facility] 05-22-2023 09:05-0500 Respiratory rate 10 /min Mohamad Mouchli [facility] 05-22-2023 09:05-0500 SaO2% (BldA) [Mass fraction] 95 % Mohamad Mouchli [facility] 05-22-2023 09:05-0500 Systolic blood pressure 111 mm[Hg] Mohamad Mouchli [facility] 05-22-2023 09:00-0500 Diastolic blood pressure 70 mm[Hg] Mohamad Mouchli [facility] 05-22-2023 09:00-0500 Heart rate 66 /min Mohamad Mouchli [facility] 05-22-2023 09:00-0500 Respiratory rate 15 /min Mohamad Mouchli [facility] 05-22-2023 09:00-0500 SaO2% (BldA) [Mass fraction] 99 % Mohamad Mouchli [facility] 05-22-2023 09:00-0500 Systolic blood pressure 113 mm[Hg] Mohamad Mouchli [facility] 05-22-2023 08:50-0500 Body temperature 97.52 [degF] Mohamad Mouchli [facility] 05-22-2023 08:45-0500 Respiratory rate 24 /min Mohamad Mouchli [facility] 05-22-2023 08:40-0500 Respiratory rate 24 /min Mohamad Mouchli [facility] 05-22-2023 08:35-0500 Respiratory rate 22 /min Mohamad Mouchli [facility] 05-22-2023 07:14-0500 Blood Pressure Location Mohamad Mouchli [facility] 05-22-2023 07:14-0500 Body temperature 97.88 [degF] Mohamad Mouchli [facility] 05-14-2023 12:52-0500 Blood Pressure Location Mohamad Mouchli [facility] 05-14-2023 12:52-0500 Diastolic blood pressure 89 mm[Hg] Mohamad Mouchli [facility] 05-14-2023 12:52-0500 Heart rate 89 /min Mohamad Mouchli [facility] 05-14-2023 12:52-0500 Respiratory rate 16 /min Mohamad Mouchli [facility] 05-14-2023 12:52-0500 Systolic blood pressure 135 mm[Hg] Del Nettles [facility] 04-16-2023 09:00-0500 Body height 154.94 cm Andrea Ball Other [facility] 04-16-2023 09:00-0500 Body mass index (BMI) [Ratio] 30.12 kg/m2 Andrea Ball Other [facility] [employer] Other 04-16-2023 09:00-0500 Body weight 72.3 kg Andrea Ball Other [facility] 04-16-2023 09:00-0500 Diastolic blood pressure 86 mm[Hg] Andrea Ball Other [facility] 04-16-2023 09:00-0500 Respiratory rate 20 /min Andrea Ball Other [facility] [employer] Other 04-16-2023 09:00-0500 SaO2% (BldA) [Mass fraction] 95 % Andrea Ball Other [facility] [employer] Other 04-16-2023 09:00-0500 Systolic blood pressure 150 mm[Hg] Andrea Ball Other [facility] 02-18-2023 11:45-0500 Body height 154.94 cm Andrea Ball Other [facility] [employer] Other 02-18-2023 11:45-0500 Body mass index (BMI) [Ratio] 29.4 kg/m2 Andrea Ball Other [employer] Other 02-18-2023 11:45-0500 Body weight 70.58 kg Andrea Ball Other [employer] Other 02-18-2023 11:45-0500 Diastolic blood pressure 80 mm[Hg] Andrea Ball Other [employer] Other 02-18-2023 11:45-0500 Respiratory rate 12 /min Andrea Ball Other [employer] Other 02-18-2023 11:45-0500 SaO2% (BldA) [Mass fraction] 98 % Andrea Ball Other [employer] Other 02-18-2023 11:45-0500 Systolic blood pressure 148 mm[Hg] Andrea Ball Other [employer] Other 01-25-2023 08:30-0500 Body height 154.94 cm Andrea Ball Other [employer] Other 01-25-2023 08:30-0500 Body mass index (BMI) [Ratio] 29.59 kg/m2 Andrea Ball Other [employer] Other 01-25-2023 08:30-0500 Body weight 71.03 kg Andrea Ball Other [employer] Other 01-25-2023 08:30-0500 Diastolic blood pressure 77 mm[Hg] Andrea Ball Other [employer] Other 01-25-2023 08:30-0500 Respiratory rate 12 /min Andrea Ball Other [employer] Other 01-25-2023 08:30-0500 Systolic blood pressure 118 mm[Hg] Andrea Ball Other [facility] Other 12-12-2022 13:45-0400 Body height 154.94 cm Andrea Ball Other [facility] Other 12-12-2022 13:45-0400 Body mass index (BMI) [Ratio] 29.36 kg/m2 Andrea Ball Other [facility] Other 12-12-2022 13:45-0400 Body weight 70.49 kg Andrea Ball Other [facility] Other 12-12-2022 13:45-0400 Diastolic blood pressure 79 mm[Hg] Andrea Nebula Other [facility] Other 12-12-2022 13:45-0400 Respiratory rate 12 /min Andrea Nebula Other [facility] Other 12-12-2022 13:45-0400 SaO2% (BldA) [Mass fraction] 98 % Andrea Nebula Other [facility] Other 12-12-2022 13:45-0400 Systolic blood pressure 130 mm[Hg] Andrea Nebula Other [facility] Other 11-01-2022 15:05-0400 Body height 154.94 cm Shannan Webster Other [facility] Other 11-01-2022 15:05-0400 Body mass index (BMI) [Ratio] 28.34 kg/m2 Shannan Webster Other [facility] Other 11-01-2022 15:05-0400 Body temperature 96.2 [degF] Shannan Webster Other [facility] Other 11-01-2022 15:05-0400 Body weight 68.04 kg Shannan Webster Other [facility] Other 11-01-2022 15:05-0400 Diastolic blood pressure 69 mm[Hg] Shannan Calzadaler Other [facility] Other 11-01-2022 15:05-0400 Respiratory rate 18 /min Shannan Webster Other [facility] Other 11-01-2022 15:05-0400 SaO2% (BldA) [Mass fraction] 99 % Shannan Webster Other [facility] Other 11-01-2022 15:05-0400 Systolic blood pressure 130 mm[Hg] Shannan Webster Other [facility] Other 03-05-2022 15:00-0500 Body height 162.56 cm Luma Taran Other [facility] Other 12-01-2021 09:55-0400 Blood Pressure Location Asuncion Lue [facility] 12-01-2021 09:55-0400 Diastolic blood pressure 89 mm[Hg] Asuncion Lue [facility] 12-01-2021 09:55-0400 Heart rate 81 /min Asuncion Lue [facility] 12-01-2021 09:55-0400 Systolic blood pressure 140 mm[Hg] Asuncion Lue [facility] 10-10-2021 10:15-0400 Body height 162.56 cm Espinoza Ruiz Other [facility] Other 10-10-2021 10:15-0400 Body mass index (BMI) [Ratio] 24.89 kg/m2 Espinoza Ruiz Other [facility] Other 10-10-2021 10:15-0400 Body weight 65.77 kg Espinoza Ruiz Other [facility] Other Encounters Encounter Date Encounter Type Care Provider Facility Start: 12-28-2024 End: 12-28-2024 Nelia Vasquez MD Work Phone: [facility] Start: 12-28-2024 End: 12-28-2024 Nelia Vasquez MD Work Phone: [facility] Start: 12-28-2024 End: 12-28-2024 ambulatory CHARITO VASQUEZ Not Available Start: 12-22-2024 End: 12-22-2024 ambulatory Andrea Golden DO Work Phone: [facility] Work Phone: Start: 12-22-2024 End: 12-22-2024 Patient encounter procedure [facility] Work Phone: Start: 12-10-2024 End: 12-10-2024 ambulatory Del Nettles Facility:[facility] Start: 12-10-2024 End: 12-10-2024 Patient encounter procedure Del Nettles [facility] Start: 10-29-2024 End: 10-30-2024 Telephone encounter Jeanette Luther MD Work Phone: [facility] Comment on above: refill Start: 10-02-2024 Non-patient / Non-visit Abe Ramos [facility] [employer] Work Phone: Start: 08-05-2024 End: 08-05-2024 ambulatory Del Nettles Facility:[facility] Start: 08-05-2024 End: 08-05-2024 Patient encounter procedure Del Nettles [facility] Start: 07-27-2024 End: 07-27-2024 Orders Only Kasey Fallon MD Work Phone: Gastroenterology Comment on above: 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) Start: 07-20-2024 End: 09-19-2024 Follow-up encounter Kasey Fallon MD Work Phone: Gastroenterology Start: 07-13-2024 ambulatory ANDREA Parada y:[facility] Start: 07-13-2024 End: 07-13-2024 Subsequent hospital visit by physician Kasey Fallon MD Work Phone: Gastroenterology Comment on above: Iron deficiency anem ia due to chronic blood loss [D50.0] Start: 07-08-2024 End: 07-08-2024 ambulatory Asuncion Buchanan Facility:[facility] Start: 07-06-2024 End: 07-06-2024 ambulatory Noemí William RNschedule analyst Start: 07-01-2024 End: 07-01-2024 Telephone encounter Jacqueline Hong RNschedule analyst Comment on above: Education Of Patient /family; Patient Question (Message sent to referring physician regarding a substitute for Gatorade) Start: 06-02-2024 End: 06-02-2024 Admission to same day surgery center Asuncion Buchanan [facility] Start: 06-02-2024 End: 06-02-2024 ambulatory Asuncion Buchanan Facility[facility] Start: 05-22-2024 End: 05-22-2024 Telephone encounter Kasey Fallon MD Work Phone: Gastroenterology Comment on above: Patient Question Start: 05-20-2024 End: 05-20-2024 ambulatory Asuncion Buchanan Facility:[facility] Start: 05-20-2024 End: 05-20-2024 Patient encounter procedure Asuncion Buchanan [facility] Start: 04-30-2024 End: 04-30-2024 Bamboo flowsdanial Vasquez MD Work Phone: [facility] Start: 04-30-2024 End: 04-30-2024 Bamboo flowsheet Charito Vasquez MD Work Phone: [facility] Start: 04-30-2024 End: 04-30-2024 Office outpatient visit 15 minutes Charito Vasquez MD Work Phone: [facility] Comment on above: Chronic maxillary si nusitis (Primary Dx) Start: 04-30-2024 End: 04-30-2024 ambulatory CHARITO VASQUEZ Not Available Start: 04-22-2024 End: 04-22-2024 ambulatory Asuncion Buchanan Facility:[facility] Start: 04-22-2024 End: 04-22-2024 Patient encounter procedure Asuncion Buchanan [facility] Start: 04-16-2024 End: 04-16-2024 Bamboo flowsheet Madison Guptakes DO Work Phone: [facility] Start: 04-16-2024 End: 04-16-2024 Bamboo flowsheet Madison Guptakes DO Work Phone: [facility] Start: 04-16-2024 End: 04-16-2024 Patient encounter status Madison Guptakes DO Work Phone: [facility] Start: 04-16-2024 End: 04-16-2024 Periodic preventive med est patient 65yrs& older Madison Guptakes DO Work Phone: [facility] Comment on above: Encounter for gyneco logical examination without abnormal finding; Screening for malignant neoplasm of cervix; Encounter for screening mammogram for breast cancer; Lichen sclerosus et atrophicus; Screening for osteoporosis; Postmenopausal status, age-related Start: 04-16-2024 End: 04-16-2024 ambulatory MADISON BURNS Not Available Start: 04-08-2024 End: 04-08-2024 ambulatory Asuncion Stephen. Lue Facility:[facility] Start: 04-08-2024 End: 04-08-2024 Patient encounter procedure Asuncion Mitchell. Anitae [facility] Start: 04-07-2024 End: 04-07-2024 Admission to same day surgery center Asuncion Buchanan [facility] Start: 04-07-2024 End: 04-07-2024 ambulatory Asuncion M. Lue Facility:[facility] Start: 03-24-2024 End: 03-24-2024 ambulatory Asuncion Stephen. Lue Facility:[facility] Start: 03-24-2024 End: 03-24-2024 Patient encounter procedure Asuncion Mitchell. Anitae [facility] Start: 02-24-2024 End: 02-24-2024 ambulatory Asuncion M. Lue Facility:[facility] Start: 02-24-2024 End: 02-24-2024 Patient encounter procedure Asuncion Mitchell. Anitae [facility] Start: 02-05-2024 End: 02-05-2024 ambulatory Asuncion Stephen. Lue Facility:[facility] Start: 02-05-2024 End: 02-05-2024 Patient encounter procedure Asuncion Mitchell. Lue [facility] Start: 02-05-2024 End: 02-05-2024 ambulatory [facility] Work Phone: Start: 02-05-2024 End: 02-05-2024 Patient encounter procedure [facility] Work Phone: Start: 02-02-2024 Patient encounter procedure [facility] Start: 01-29-2024 Non-patient / Non-visit [facility] Work Phone: Start: 01-29-2024 End: 01-29-2024 ambulatory MARSHA LAL [...] Start: 12-27-2023 End: 12-27-2023 ambulatory JONES ACE Facility:[facility] Start: 12-27-2023 End: 12-27-2023 Lab Drop off Asuncion Buchanan [facility] Start: 12-27-2023 End: 12-27-2023 ambulatory Asuncion Buchanan Facility:[facility] Start: 12-27-2023 End: 12-27-2023 Patient encounter procedure Asuncion Buchanan [facility] Start: 12-25-2023 End: 12-25-2023 Telephone encounter Kasey Fallon MD Work Phone: Gastroenterology Comment on above: Patient Question Start: 12-24-2023 End: 12-24-2023 ambulatory KASEY FALLON Facility:[facility] Start: 12-24-2023 End: 12-24-2023 Subsequent hospital visit by physician [facility] Qb1 (I-Stat) Radiology Comment on above: 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 Hilary [facility] Start: 10-31-2023 Telephone encounter Kasey abarca MD Work Phone: Gastroenterology Comment on above: Patient Question Other partial intest inal obstruction (HCC) (Primary Dx) Start: 10-16-2023 Telephone encounter [facility] Provider Angle lester Comment on above: Consult Start: 10-08-2023 End: 10-08-2023 ambulatory DARLINE Najera [facility] Start: 09-14-2023 End: 09-14-2023 Office outpatient new 60 minutes Jhonny Maher MD Work Phone: [facility] Comment on above: Chronic maxillary si nusitis (Primary Dx); Chronic ethmoiditis; Chronic cough; Asthma, unspecified asthma severity, unspecified whether complicated, unspecified whether persistent ([facility]) Start: 09-14-2023 End: 09-14-2023 ambulatory JHONNY MAHER [facility] Start: 08-20-2023 End: 08-20-2023 ambulatory [facility] Work Phone: Start: 08-20-2023 End: 08-20-2023 [facility] Work Phone: Start: 08-15-2023 End: 08-15-2023 ambulatory [facility] Start: 08-15-2023 End: 08-15-2023 Patient encounter procedure Del Nettles [facility] Start: 07-23-2023 End: 07-23-2023 ambulatory Jeanette Matoss Facility:[facility] Start: 07-23-2023 End: 07-23-2023 Patient encounter procedure Jeanette Matoss [facility] Start: 07-17-2023 End: 07-17-2023 ambulatory [facility] Start: 07-17-2023 End: 07-17-2023 Patient encounter procedure Haid AJose Nettles [facility] Start: 07-05-2023 End: 07-05-2023 ambulatory Mohliud A. Franciscali Facility:[facility] Start: 07-05-2023 End: 07-05-2023 Patient encounter procedure Haid A. Tho [facility] Start: 07-04-2023 End: 07-04-2023 ambulatory Mohliud A. Mojerelli [facility] Start: 07-04-2023 End: 07-04-2023 Patient encounter procedure Mohliud A. Mojerelli [facility] Start: 07-02-2023 Non-patient / Non-visit [facility] Work Phone: Start: 06-27-2023 Non-patient / Non-visit [facility] Work Phone: Start: 06-25-2023 ambulatory Del Nettles Facleyla lity:[facility] Start: 06-21-2023 End: 06-21-2023 ambulatory [facility] Work Phone: Start: 06-21-2023 End: 06-21-2023 Patient encounter procedure [facility] Work Phone: Start: 05-30-2023 End: 05-30-2023 ambulatory Del Nettles Facility:[facility] Start: 05-30-2023 End: 05-30-2023 Patient encounter procedure Del Nettles [facility] Start: 05-23-2023 Non-patient / Non-visit [facility] Work Phone: Start: 05-22-2023 End: 05-22-2023 ambulatory Del Nettles Facility:[facility] Start: 05-22-2023 End: 05-22-2023 Patient encounter procedure Del Nettles [facility] Start: 05-14-2023 End: 05-14-2023 ambulatory Del Nettles Facility:[facility] Start: 05-14-2023 End: 05-14-2023 Patient encounter procedure Del Nettles [facility] Start: 04-22-2023 End: 04-22-2023 ambulatory [facility] Other [facility] [employer] Other Start: 04-22-2023 Danieleboo flowsdanial brasher MD Work Phone: [facility] Start: 04-22-2023 Bamboo flowsheet Charito brasher MD Work Phone: [facility] Start: 04-22-2023 Telephone encounter Andrea Ball [facility] Start: 04-19-2023 End: 04-19-2023 ambulatory Andrea Ball Other [facility] Other Start: 04-19-2023 Telephone encounter Andrea Ball [facility] Start: 04-18-2023 Telephone encounter Andrea Ball [facility] Start: 04-18-2023 End: 04-18-2023 ambulatory Andrea Ball Other [facility] Other Start: 04-16-2023 End: 04-16-2023 ambulatory Andrea Ball Other [facility] Other Start: 04-16-2023 Office outpatient vi sit 25 minutes Andrea Ball [facility] Start: 04-16-2023 End: 04-16-2023 Patient encounter procedure [facility] Start: 04-04-2023 End: 04-04-2023 ambulatory Andrea Ball Other [facility] Other Start: 04-04-2023 Telephone encounter Andrea Ball [facility] Start: 03-08-2023 End: 03-08-2023 ambulatory Andrea Ball Other [facility] Other Start: 03-08-2023 Telephone encounter Andrea Ball [facility] Start: 03-06-2023 End: 03-06-2023 ambulatory Andrea Ball Other [facility] Other Start: 03-06-2023 Telephone encounter Andrea Ball [facility] Start: 02-25-2023 End: 02-25-2023 ambulatory Andrea Ball Other [facility] Other Start: 02-25-2023 Telephone encounter Andrea Ball [facility] Start: 02-20-2023 End: 02-20-2023 ambulatory Asuncion MJose Howardkarina Facility:[facility] Start: 02-20-2023 End: 02-20-2023 Patient encounter procedure Asuncion MitchellJose Howardkarina [facility] Start: 02-18-2023 End: 02-18-2023 ambulatory Andrea Golden Other [facility] Other Start: 02-18-2023 Office outpatient vi sit 15 minutes Andrea Ball [facility] Start: 02-05-2023 End: 02-05-2023 ambulatory Andrea Ball Other [facility] Other Start: 02-05-2023 Telephone encounter Andrea Ball [facility] Start: 01-31-2023 End: 01-31-2023 ambulatory Andrea Ball Other [facility] Other Start: 01-31-2023 Telephone encounter Andrea Ball [facility] Start: 01-29-2023 End: 01-29-2023 ambulatory Andrea Ball Other [facility] Other Start: 01-29-2023 Telephone encounter Andrea Ball [facility] Start: 01-25-2023 End: 01-25-2023 ambulatory Andrea Ball Other [facility] Other Start: 01-25-2023 Patient encounter procedure Andrea Ball [facility] Start: 01-25-2023 Telephone encounter Andrea Ball [facility] Start: 12-12-2022 End: 12-12-2022 ambulatory Andrea Ball Other [facility] Other Start: 12-12-2022 Office outpatient vi sit 15 minutes Andrea Ball [facility] Start: 11-07-2022 End: 11-07-2022 ambulatory Andrea Ball Other [facility] Other Start: 11-07-2022 Telephone encounter Andrea WALLACE [facility] Start: 11-01-2022 End: 11-01-2022 ambulatory Shannan Webster Other [facility] Other Start: 11-01-2022 Office outpatient vi sit 25 minutes Shannan Webster [facility] Start: 06-27-2022 End: 06-28-[address] JEROME ESPINOSA Facility:[facility] Start: 06-04-2022 End: 06-04-2022 ambulatory Andrea Golden Other [facility] Other Start: 06-04-2022 Telephone encounter Andrea WALLACE [facility] Start: 05-17-2022 End: 05-18-[address] CAMPOS ERAZO Facility:[facility] Start: 04-26-2022 End: 04-27-[address] JEROME ESPINOSA Facility:[facility] Start: 04-25-2022 End: 04-25-2022 ambulatory Andrea Golden Other [facility] Other Start: 04-25-2022 Telephone encounter Andrea WALLACE [facility] Start: 04-10-2022 End: 04-10-2022 ambulatory Andrea Golden Other [facility] Other Start: 04-10-2022 Telephone encounter [facility] [place] W[facility]ACE [facility] Start: 04-07-2022 Encounter for preprocedural cardiovascular examination [facility] Start: 04-07-2022 Encounter for preprocedural laboratory examination [facility] Start: 04-06-2022 End: 04-06-2022 ambulatory Andrea Golden Other [facility] Other Start: 04-06-2022 Telephone encounter Andrea [place] WALLACE [facility] Start: 04-05-2022 End: 04-05-2022 ambulatory [...] 03-05-2022 End: 03-05-2022 ambulatory Luma Chirinos Other [facility] Other Start: 03-05-2022 Office outpatient vi sit 15 minutes Luma Chirinos [facility] Start: 01-29-2022 End: 01-30-[address] ANDREA GOLDEN Facility:[facility] Start: 01-18-2022 Adult health examination Shannan Webster Other [facility] Other Start: 12-01-2021 End: 12-01-2021 Patient encounter procedure Asuncion Buchanan [facility] Start: 10-10-2021 End: 10-10-2021 ambulatory Espinoza Ruiz Other [facility] Other Start: 10-10-2021 Office outpatient vi sit 25 minutes Espinoza Ruiz [facility] Start: 10-10-2021 End: 10-10-2021 Patient encounter procedure MD Espinoza Ruiz Work Phone: [facility] Start: 10-05-2021 End: 10-05-2021 ambulatory Espinoza Olealbina Other [facility] Other Start: 10-05-2021 Telephone encounter Espinoza Ruiz [facility] Start: 10-02-2021 End: 10-03-[address] ANDREA GOLDEN Facility:[facility] Procedures Date Procedure Procedure Detail Performing Clinician Start: 07-13-2024 Endoscopy upper small intestine Kasey Fallon MD Work Phone: Start: 06-02-2024 Cystoscopy Asuncion Buchanan Start: 04-07-2024 Cystoscopy Asuncion Lukarina Start: 02-03-2024 Mammography Marsha Lal DO Work Phone: Start: 01-29-2024 End: 01-29-2024 Oph medical xm&eval comprhnsv estab pt 1/> Keratoconjunctivitis sicca [...] Esophagogastroduodenoscopy Asuncion Buchanan Start: 01-16-2015 Colonoscopy Asuncion Lue Comment on [...] History of cholecystectomy Hx of cholecys tectomy Mohamaalisha Mouchli Ligation of fallopian tube K athy Dewayne Repair of musculoten dinous cuff of shoulder Asuncion Lue Screening for malign ant neoplasm of breast Shannan Webster Other Screening for malign ant neoplasm of colon Shannan Webster Other Structure of right w rist (body structure) Asuncion Lue Thyroidectomy Asuncion Lue Plan of Treatment Date Care Activity Detail Author Start: 05-21-2033 Screening for malignant neoplasm of colon [facility] Start: 09-06-2029 Screening for malignant neoplasm of colon [facility] Start: 05-11-2025 End: 05-11-2025 Patient encounter procedure [facility] Start: 02-24-2025 End: 02-24-2025 Patient encounter procedure 02/24/2025 10:50 AM EST Office Visit [facility] [address] [place] [address] Janae Crane MD [address] [place] [address] [facility] Start: 02-02-2025 Screening for malignant neoplasm of breast Mammogram [facility] Start: 02-02-2025 End: 02-02-2025 Patient encounter procedure [facility] Start: 12-28-2024 End: 12-28-2024 Patient encounter procedure [facility] Comment on above: Arrived Start: 11-16-2024 Influenza vaccination Influenza Vaccine (#1) [facility] Start: 07-13-2024 Covid-19 Vaccine ( season) Covid-19 Vaccine () [facility] Start: 07-13-2024 End: 07-13-2024 Patient encounter procedure 07/13/2024 1:00 PM EDT Appointment Gastroenterology [address] [id number] Kasey Fallon MD [facility] [address] [place] [id number] Iron deficiency anemia due to chronic blood loss [D50.0] Gastroenterology Comment on above: Iron deficiency anemia due to chronic bl ood loss [D50.0] Start: 04-30-2024 End: 04-30-2024 Patient encounter procedure [facility] Comment on above: Arrived Start: 04-16-2024 End: 04-16-2024 Patient encounter procedure 04/16/2024 10:30 AM EST Office Visit [facility] [address] [place] [phone] Madison Burns DO [address] [place] [address] Encounter for gynecological examination without abnormal finding; Screening for malignant neoplasm of cervix; Encounter for screening mammogram for breast cancer; Lichen sclerosus et atrophicus [facility] Comment on above: Encounter for gynecological examination without abnormal finding; Screening for malignant neoplasm of cervix; Encounter for screening mammogram for breast cancer; Lichen sclerosus et atrophicus Start: 04-08-2024 End: 04-08-2024 Patient encounter procedure 04/08/2024 9:45 AM EST Office Visit [facility] [address] [place] [phone] Madison Burns, [address] [place] [address] [facility] Start: 03-18-2024 Advance Directive Discussion Advance Directive Discussion [facility] Start: 02-06-2024 Screening for malignant neoplasm of breast Mammogram [facility] Start: 01-29-2024 End: 01-29-2024 Patient encounter procedure 01/29/2024 8:15 AM EST Office Visit [facility] [address] [place] [phone] Marsha Lal, DO [address] [place] [address] [facility] Start: 01-20-2024 End: 01-20-2024 Patient encounter procedure 01/20/2024 8:15 AM EST Office Visit [facility] [address] [place] [phone] Marsha Lal, DO [address] [place] [address] [facility] Start: 12-30-2023 End: 12-30-2023 Patient encounter procedure 12/30/2023 9:20 AM EDT Office Visit [facility] [address] [place] [phone] Charito Vasquez MD [address] [place] [address] Arrived [facility] Comment on above: Arrived Start: 12-27-2023 End: 12-27-2023 Patient encounter procedure 12/27/2023 4:30 PM EDT Office Visit Gastroenterology [address] [address] Kasey Fallon MD [facility] [address] [address] New Patient consult 30min- [facility] Comment on above: New Patient consult 30min- Double Balloo n Start: 12-27-2023 End: 12-27-2023 Patient encounter procedure 12/27/2023 9:40 AM EDT Appointment Radiology [address] [place] [address] 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] Radiology Comment on above: Other partial intestinal obstruction (HC C) [K56.690] Start: 11-17-2023 Covid-19 Vaccine ( season) Covid-19 Vaccine ( season) [facility] Start: 11-17-2023 Covid-19 Vaccine ( season) Covid-19 Vaccine ( season) [facility] Start: 11-17-2023 Influenza vaccination Influenza Vaccine (#1) [facility] Start: 10-31-2023 End: 01-30-2024 CREATININE BLD CREATININE BLD Lab Routine Other partial intestinal obstruction (HCC) Expected: 10/31/2023, Expires: 01/30/2024 [facility] Comment on above: Expected: 10/31/2023, Expires: Start: 10-08-2023 End: 10-08-2023 Patient encounter procedure 10/08/2023 9:45 AM EDT Office Visit [facility] [address] [place] [address] [address] [place] [phone] [place] [address] [address] Department [place] [address] [facility] Start: 06-15-2023 COVID-19 Vaccine () COVID-19 Vaccine () [facility] Start: 04-22-2023 End: 04-22-2023 Patient encounter procedure 04/22/2023 11:00 AM EST Office Visit [facility] [address] [place] [id number] Charito Vasquez MD [address] [place] [address] Arrived [facility] Comment on above: Arrived Start: 03-18-2023 Advance Directive Discussion Advance Directive Discussion [facility] Start: 02-02-2023 Screening for malignant neoplasm of breast Mammogram Screening [facility] Start: 11-16-2022 Covid-19 Vaccine ( season) Covid-19 Vaccine () [facility] Start: 07-16-2017 Medicare Annual Wellness Visit Medicare Annual Wellness Visit [facility] Start: 2012 RSV Vaccine (1 - 1-dose 60+ series) RSV Vaccine (1 - 1-dose 60+ series) [facility] Start: 2002 Shingrix Vaccine (1 of 2) Shingrix Vaccine (1 of 2) [facility] Start: 2002 Zoster Vaccines (1 of 2) Zoster Vaccines (1 of 2) [facility] Start: 1997 Diabetes Screening Diabetes Screening [facility] Start: 1997 Lipid panel Lipid Screening [facility] Start: 1997 Screening for malignant neoplasm of colon [facility] Start: 1974 DTaP/Tdap/Td Vaccines (1 - Tdap) DTaP/Tdap/Td Vaccines (1 - Tdap) [facility] Start: 07-27-1971 Urine microalbumin profile DTaP,Tdap,Td Vaccine (1 - Tdap) [facility] Start: 1970 Anxiety Screening Anxiety Screening [facility] Start: 1970 Depression Screening Depression Screening [facility] Start: 1970 Hepatitis C screening Hepatitis C Screening [facility] Start: 1952 Lipid panel Lipid Panel [facility] Start: 1952 Medicare Annual Wellness Visit Medicare Annual Wellness Visit (AWV) [facility] Start: 1950 Screening for malignant neoplasm of colon [facility] Start: 1950 Thyroid stimulating hormone measurement TSH Level [facility] End: 11-29-2024 CT Small bowel W contrast PO and W contrast IV CT ENTEROGRAPHY W IVCON Radiology Routine Other partial intestinal obstruction (HCC) 1 Occurrences starting 10/31/2023 until 11/29/2024 [facility] Work Phone: Comment on above: 1 Occurrences starting 10/31/2023 until 11/29/2024 DBT Breast - bilateral screening Bilateral screening mammogram with tomosynthesis Imaging Routine Encounter for screening mammogram for breast cancer Ordered: 04/16/2024 [facility] Comment on above: Ordered: 04/16/2024 DXA Skeletal system Views for bone density DEXA bone density Imaging Routine Screening for osteoporosis Postmenopausal status, age-related Ordered: 04/16/2024 [facility] Comment on above: Ordered: 04/16/2024 End: 12-26-2024 ENTEROSCOPY ENTEROSCOPY Endoscopy Routine Iron deficiency anemia due to chronic blood loss Abnormal finding on GI tract imaging 1 Occurrences starting 12/27/2023 until 12/26/2024 [facility] Work Phone: Comment on above: 1 Occurrences starting 12/27/2023 until 12/26/2024 IGP, RFX APTIMA HPV ASCU IGP, RFX APTIMA HPV ASCU Lab Routine Screening for malignant neoplasm of cervix Ordered: 04/16/2024 [facility] Work Phone: Comment on above: Ordered: 04/16/2024 Tissue Pathology biopsy report [facility] Work Phone: Comment on above: Release Upon Ordering for 1 Occurrences starting 07/13/2024, 1 completed XR Lumbar spine Views [facility] Immunizations Immunization Date Immunization Notes Care Provider Fa cility 01-13-2024 influenza virus vaccine, unspecified formulation Del Nettles [facility] 12-31-2022 Flu Shot - Documentation Purposes Only Andrea Golden Other [facility] 12-31-2022 influenza virus vaccine, unspecified formulation Asuncion Buchanan [facility] 12-31-2022 respiratory syncytia l virus (RSV) vaccine, adjuvanted (AREXVY) Kasey Fallon MD Work Phone: [facility] 12-22-2021 SARS-CoV-2 (COVID-19 ) [id number] Asuncion Buchanan [facility] 12-18-2021 influenza (HD-IIV4) vaccine, age 65+ yr, high dose, quadrivalent, PF (FLUZONE HIGH-DOSE) Kasey Fallon MD Work Phone: [facility] 12-18-2021 influenza virus vaccine, split virus (incl. purified surface antigen) Shannan Webster Other [facility] Other 12-18-2021 influenza virus vaccine, unspecified formulation Asuncion Buchanan [facility] 07-04-2021 SARS-CoV-2 (COVID-19 ) mRNA-1273 vaccine Asuncion Buchanan [facility] 01-23-2021 SARS-CoV-2 (COVID-19 ) mRNA-1273 vaccine Asuncion Lue [facility] 11-23-2020 influenza (aIIV4) vaccine, age 65+ yr, quadrivalent, PF (FLUAD QUAD) Kasey Fallon MD Work Phone: [facility] 11-23-2020 influenza virus vaccine, split virus (incl. purified surface antigen) Shannan Webster Other [facility] Other 11-23-2020 influenza virus vaccine, unspecified formulation Asuncion Lue [facility] 06-02-2020 SARS-CoV-2 (COVID-19 ) mRNA-1273 vaccine Asunicon Lue [facility] 05-05-2020 SARS-CoV-2 (COVID-19 ) mRNA-1273 vaccine Asuncion Lue [facility] 03-18-2020 SARS-CoV-2 (COVID-19 ) mRNA-1273 vaccine Asuncion Lue [facility] Comment on above: Result Comment: 3 sh ots to date 12-07-2019 influenza virus vaccine, split virus (incl. purified surface antigen) Shannan Webster Other [facility] Other 12-07-2019 influenza virus vaccine, unspecified formulation Asuncion Lue [facility] 12-07-2019 influenza, injectabl e, quadrivalent, preservative free Kasey Fallon MD Work Phone: [facility] 01-05-2019 influenza virus vaccine, unspecified formulation Asuncion Lue [facility] 01-05-2019 Influenza, injectabl e, Madin Judi Canine Kidney, preservative free, quadrivalent Kasey Fallon MD Work Phone: [facility] 01-05-2019 pneumococcal polysaccharide vaccine, 23 valent Asuncion Lue [facility] 12-17-2018 influenza virus vaccine, unspecified formulation Asuncion Lue [facility] 12-19-2017 influenza virus vaccine, unspecified formulation Asuncion Dewayne [facility] 12-19-2017 Seasonal trivalent influenza vaccine, adjuvanted, preservative free Kasey Fallon MD Work Phone: [facility] 01-10-2017 influenza virus vaccine, split virus (incl. purified surface antigen) Shannan Webster Other [facility] Other 01-10-2017 influenza virus vaccine, unspecified formulation Asuncion Buchanan [facility] 01-10-2017 influenza, injectabl e, quadrivalent, preservative free Kasey Fallon MD Work Phone: [facility] 01-10-2017 pneumococcal conjuga te vaccine, 13 valent Asuncion Lukarina [facility] 01-04-2016 influenza virus vaccine, unspecified formulation Asuncion Dewayne [facility] 01-04-2016 influenza, seasonal, injectable, preservative free Kasey Fallon MD Work Phone: [facility] 01-04-2016 pneumococcal polysaccharide vaccine, 23 valent Asuncion Lukarina [facility] Payers Date Payer Category Payer Private Health Insurance [id number] 2018 Unknown [id number] 2017 Medicare [id number]. [id number] 1959 Medicare [id number] 2.1 6.840.1.559764.19 1959 Unknown [id number] 2. 16.840.1.557166.19 1952 Unknown [id number] 2.16.840.1.163667.3.579.2.593 1952 Unknown [id number] 2.16.840.1.916478.3.579.2.593 1952 Unknown [id number] 2.16.840.1.855628.3.579.2.593 1952 Unknown [id number] 2.16.840.1.119162.3.579.2.593 1952 Unknown [id number] 2.16.840.1.775466.3.579.2.593 1952 Unknown [id number] 2.16.840.1.553069.3.579.2.593 1952 Unknown [id number] 2.16.840.1.534223.3.579.2.593 1952 Unknown [id number] 2.16.840.1.910673.3.579.2.593 1952 Unknown [id number] 2.16.840.1.483068.3.579.2.593 1952 Unknown [id number] 2.16.840.1.741545.3.579.2.593 1952 Unknown [id number] 2.16.840.1.153524.3.579.2.1244 1952 Unknown [id number] 2.16.840.1.728557.3.579.2.1245 1952 Unknown [id number] 2.16.840.1.752050.3.579.2.1243 1952 Unknown [id number] 2.16.840.1.500310.3.579.2. 1952 Unknown [id number] 2.16.840.1.856956.3.579.2 1952 Unknown [id number] 2.16.840.1.208824.3.579.2 1952 Unknown [id number] 2.16.840.1.524066.3.579.2 1952 Unknown [id number] 2.16.840.1.198509.3.579.2 1952 Unknown [id number] 2.16.840.1.494655.3.579.2 1952 Unknown [id number] 2.16.840.1.691348.3.579.2 1952 Unknown [id number] 2.16.840.1.400424.3.579.2 1952 Unknown [id number] 2.16.840.1.722032.3.579.2 1952 Unknown [id number] 2.16.840.1.570061.3.579.2 1952 Unknown [id number] 2.16.840.1.640072.3.579.2 1952 Unknown [id number] 2.16.840.1.767145.3.579.2 1952 Unknown [id number] 2.16.840.1.519629.3.579.2 1952 Unknown [id number] 2.16.840.1.403619.3.579.2 1952 Unknown [id number] 2.16.840.1.180413.3.579.2 1952 Unknown [id number] 2.16.840.1.804709.3.579.21953 Unknown [id number] 2.16.840.1.845030.3.579.2.727 1952 Unknown [id number] 2.16.840.1.140852.3.579.2. 1952 Unknown [id number] 2.16.840.1.229222.3.579.2. 1952 Unknown [id number] 2.16.840.1.277452.3.579.2. 1952 Unknown [id number] 2.16.840.1.963755.3.579.2. 1952 Unknown [id number] 2.16.840.1.805317.3.579.2. 1952 Unknown [id number] 2.16.840.1.441118.3.579.2. 1952 Unknown [id number] 2.16.840.1.268746.3.579.2.1258 1952 Unknown [id number] 2.16.840.1.726734.3.579.2.1258 1952 Unknown [id number] 2.16.840.1.128159.3.579.2.9 1952 Unknown [id number] 2.16.840.1.985929.3.579.2.1258 1952 Unknown [id number] 2.16.840.1.497394.3.579.2.1259 Self-pay Self Pay [id number] Unknown [employer]/BS [id number] Social History Date Type Detail Facility Unknown if ever smoked [facility] Other Start: 03-07-2023 End: 04-30-2024 Sex Assigned At [employer] Other Start: 11-11-2018 End: 03-07-2023 Tobacco smoking status NHIS Never smoked tobacco (finding) [facility] Start: 1950 Sex Assigned At Female [facility] Start: 05-30-2022 Tobacco smoking status Never [facility] Start: 03-07-2023 End: 12-27-2023 Tobacco use and exposure Smokeless tobacco non-user [facility] Start: 03-07-2023 End: 04-30-2024 Alcohol intake Lifetime non-drinker (finding) [facility] Start: 03-07-2023 End: 04-30-2024 History of Social function [facility] Start: 03-05-2023 Alcohol Comment Caffeine : soda [facility] Start: 08-28-2022 Gender identity Identifies as female gender (finding) [facility] Start: 12-08-2007 End: 07-13-2024 Alcohol intake Current non-drinker of alcohol (finding) [facility] Start: 1950 Sex Assigned At Not on file [facility] Work Phone: Start: 02-05-2024 Sex Female (finding) [facility] Start: 09-04-2023 End: 09-14-2023 Exposure to SARS-CoV-2 (event) Not sure [facility] Sexual Orientation [facility] Medical Equipment Procedure Code Equipment Code [...] Unknown Urethra FDA Start: 06-02-2024 CYSTOSCOPY Asuncion Watts. 06/02/24 Unknown Urethra FDA Start: 06-02-2024 CYSTOSCOPY Asuncion Watts. 06/02/24 Unknown Urethra FDA Start: 06-02-2024 Functional Status Date Assessment Result Facility 08-05-2024 Functional Status N/A [facility] 05-20-2024 Functional Status No [facility] 04-22-2024 Functional Status N/A [facility] 03-24-2024 Functional Status No [facility] 02-24-2024 Functional Status N/A [facility] 02-05-2024 Functional Status N/A [facility] 08-15-2023 Functional Status N/A [facility] 05-30-2023 Functional Status N/A [facility] 05-22-2023 Functional Status N/A [facility] 05-14-2023 Functional Status N/A [facility] 02-20-2023 Functional Status N/A [facility] 12-01-2021 Functional Status N/A [facility] [place] Clinical Notes 10-10-2021 to 10-30-2024 Telephone Encounter - Alycia Luther - 10/30/2024 1:40 PM EDTTelephone Encounter - Alycia Luther - 10/30/2024 1:40 PM EDTTelephone Encounter - Jeanette Luther MD - 10/30/2024 12:44 PM EDT Note Date & Type Note Facility 10-30-2024 Telephone encounter Note Left message for pt to call office back to schedule appt with Dr Luther. [facility] 10-30-2024 Miscellaneous Notes Left message for pt to call office back to schedule appt with Dr Luther. Not seen in over a year. Needs appt or can get from PCP or OTC Pt called requesting a refill of Zyrtec called in to [facility] in [place]. She asked for the 90 day with 3 refills. Her call back [phone] documented in this encounter [facility] 10-30-2024 Telephone encounter Note Not seen in over a year. Needs appt or can get from PCP or OTC [facility] 10-29-2024 Telephone encounter Note Pt called requesting a refill of Zyrtec called in to [facility] in [place]. She asked for the 90 day with 3 refills. Her call back [phone] [facility] 07-13-2024 Nurse Note AMBULATORY PATIENT EDUCATION NOTE [...] MATERIAL: Procedure Discharge Instructions REFERRAL (RECOMMENDATION): None [facility] 07-13-2024 Nurse Note AMBULATORY PATIENT EDUCATION [...] MATERIAL: Procedure Discharge Instructions REFERRAL (RECOMMENDATION): None PRE OP LEARNING ASSESSMENT PROCEDURE/SURGERY: GI PROCEDURES: Colonoscopy READINESS TO LEARN COGNITIVE ABILITY: Alert and oriented MOTIVATION TO LEARN: Eager FAMILY SUPPORT: High - Very involved in pt care PATIENT LEARNS BEST BY: Individual Instruction FACTORS AFFECTING LEARNING: None PHYSICAL LIMITATIONS AFFECTING LEARNING: None Electronically Signed By: Mary Callejas RN In Department: GASTROENTEROLOGY documented in this encounter [facility] 07-13-2024 Note Q3 Patient Name: Munira Chester Procedure Date: 07/13/2024 12:36 PM Date of : 1950 Admit Type: Outpatient Age: 73 Gender: Female Note Status: Finalized Attending MD: Kasey Fallon MD, [id number] Procedure: Lower Device-Assisted Enteroscopy without Fluoroscopy Indications: [...] not included)... [facility] 07-13-2024 Note HNO ID: [id number] Author: ROSAURA MARIE APRN.RETAIL ATTENDANT Service: ? Author Type: Nurse Assistant Corporate Controller Type: Anesthesia Procedure Notes Filed: 07/13/2024 13:59 Note Text: ANESTHESIOLOGY PROCEDURE NOTE Airway General Information Procedure Start Time/Medication Administration: 07/13/2024 1:47 PM Procedure End Time: 07/13/2024 1:58 PM Patient location during procedure: OR Timeout Performed Pre-procedure: timeout performed Consent Obtained: Yes Patient identity confirmed: arm band and patient Staffing RETAIL ATTENDANT: Rosaura Marie APRN.RETAIL ATTENDANT Performed by: JOHNNY Indications and Patient Condition [...] 1 Airway not difficult SIGNATURE: Rosaura Marie APRN.RETAIL ATTENDANT PATIENT NAME: Munira Chester DATE: July 13, 2024 TIME: 1:58 PM CSN: [id number] [facility] 07-13-2024 History and physical note GI [...] ORAL) Take by mouth. vit A/vit C/biotin/zinc/copper ([id number],VIT A,C-BIOTIN, ORAL) Take by mouth. aspirin 325 [...] (FLONASE) 50 mcg/actuation nasal spray Use 1 Thomson in each nostril once daily. atorvastatin (LIPITOR) [...] PATIENT NAME: Munira Chester DATE: 07/13/2024 TIME: 5 [facility] 07-13-2024 History and physical note GI [...] ORAL) Take by mouth. vit A/vit C/biotin/zinc/copper ([id number],VIT A,C-BIOTIN, ORAL) Take by mouth. aspirin 325 [...] (FLONASE) 50 mcg/actuation nasal spray Use 1 Thomson in each nostril once daily. atorvastatin (LIPITOR) [...] 07/13/2024 TIME: 1345 documented in this encounter [facility] 07-13-2024 Nurse Note PRE OP LEARNING ASSESSMENT PROCEDURE/SURGERY: GI PROCEDURES: Colonoscopy READINESS TO LEARN COGNITIVE ABILITY: Alert and oriented MOTIVATION TO LEARN: Eager FAMILY SUPPORT: High - Very involved in pt care PATIENT LEARNS BEST BY: Individual Instruction FACTORS AFFECTING LEARNING: None PHYSICAL LIMITATIONS AFFECTING LEARNING: None Electronically Signed By: Mary Callejas RN In Department: GASTROENTEROLOGY [facility] 07-13-2024 Note Q3 Patient Name: Munira Chester Procedure Date: 07/13/2024 12:36 PM Date of : 1950 Admit Type: Outpatient Age: 73 Gender: Female Note Status: Finalized Attending MD: Kasey Fallon MD, [id number] Procedure: Lower Device-Assisted Enteroscopy without Fluoroscopy Indications: [...] --- Professional --- (more content not included)... [facility] 07-08-2024 Note Patient Education Urology Urinary [...] stimulation). ? For women, using a medical imaging technician to prevent urine leaks. This is a [...] health care provider (more content not included)... [facility] 07-06-2024 Nurse Note Attempted to reach the patient at the contact number that they provided [phone] (home) [phone] (work) . 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 they must have a responsible adult accompany [...] Number to call with questions or concerns [phone] Number to call to cancel their procedure [phone] Noemí William RN documented in this encounter [facility] 07-01-2024 Telephone encounter Note Prep question unable to take Gatorade / Message sent to referring [facility] 07-01-2024 Miscellaneous Notes Prep question unable to take Gatorade / Message sent to referring documented in this encounter [facility] 06-04-2024 Note Progress Note-Naomi cha Patient: MUNIRA CHESTER Age: 73 years Sex: [...] Problems Urinary tract infection / SNOMED CT 277900059 / Confirmed Intrinsic sphincter deficiency (ISD) / SNOMED CT 2618937354 / Confirmed Urethral caruncle / SNOMED CT 45989870 / Confirmed 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 / Confirmed Duodenal stricture / SNOMED CT 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 / Confirmed Recurrent UTI / SNOMED CT 472857537 / Confirmed Osteopenia of lumbar spine / SNOMED CT 267014723 / Confirmed Nocturia / SNOMED CT 007078841 / Confirmed Mild persistent asthma / SNOMED CT 1051469270 / Confirmed Migraine / SNOMED CT 27939473 / Confirmed Microscopic hematuria / SNOMED CT 421068960 / Confirmed Lumbar spondylosis / SNOMED CT 312162719 / Confirmed Urethral lesion / SNOMED CT 9260881028 / Confirmed Mixed incontinence / SNOMED CT 31104134 / Confirmed Hypertension / SNOMED CT 2622888274 / Confirmed Hyperlipidemia / SNOMED CT 73110767 / Confirmed Personal history of colonic polyps / SNOMED CT 4518277179 / Confirmed History of gastric ulcer / SNOMED CT 612215127 / Confirmed H/O gastric ulcer / SNOMED CT 681210915 / Confirmed Graves disease / SNOMED CT 833584900 / Confirmed GERD (gastroesophageal reflux disease) / SNOMED CT 397510014 / Confirmed Incomplete bladder emptying / SNOMED CT 871779416 / Confirmed Epigastric pain / SNOMED CT 045826908 / Confirmed Chronic tension headache / SNOMED CT 980545731 / Confirmed Cervical spondylosis / SNOMED CT 6702157772 / Confirmed Bilateral cataracts / SNOMED CT 577405356 / Confirmed Benign essential hypertension / SNOMED CT 9404752 / Confirmed Hypothyroidism, acquired, autoimmune / SNOMED CT 693146784 / Confirmed Asymptomatic microscopic hematuria / SNOMED CT 1827871913 / Confirmed Asthma / SNOMED CT 127230958 / Confirmed Arthritis / SNOMED CT 2015313 / Confirmed Acute allergic rhinitis due to pollen / SNOMED CT 42889743 / Confirmed Abdominal bloating / SNOMED CT 821712662 / Confirmed Resolved: Reflux of urine / SNOMED CT 4742190857 Histories Procedure history: Cystoscopy, urethral biopsy ([id number]) on 04/07/2024 at 73 Years. Esophagogastroduodenoscopy (647415944) on 05/22/2023 at 72 Years. Colonoscopy ([id number]) on 05/22/2023 at 72 Years. Colonoscopy (483698947) on 09/07/2019 at 69 Years. EGD - Esophagogastroduodenoscopy (1056959785) on 09/07/2019 at 69 Years. EGD - Esophagogastroduodenoscopy (7811001507) on 01/16/2015 at 64 Years. Colonoscopy (047087094) on 01/16/2015 at 64 Years. Comments: 08/31/2019 16:19 EDT - Tonie Barragan LPN normal EGD - Esophagogastroduodenoscopy (9240436949) on 08/17/2011 at 61 Years. EGD - Esophagogastroduodenoscopy (5337047276) on 05/17/2011 at 60 Years. Laparoscopic cholecystectomy (84714802) on 06/16/2010 at 59 Years. Colonoscopy ([id number]) on 01/16/2010 at 59 Years. section (70042531). Rotator cuff repair (037831749). Tubal ligation (686758253). Cataracts (3865276181). Foot (11976454). Dilation and curettage (67940803). Thyroidectomy (98994614). Right wrist surgery (86135662). Social History Social & Psychosocial Habits Alcohol [...] adequate air exchange. Cardiovascular: Regular rhythm. Plan [place] [employer] Anesthesiologists (ASA) physical status classification: Class III. Anesthetic Preoperative (more content not included)... [facility] Comment on above: Result Comment: Elec tronically Signed By: Jay Jay Valderrama Jr, DO\.br\Date and Time Signed: 06/04/24 13:21 EDT 06-04-2024 Note Progress Note-Naomi cha Patient: MUNIRA CHESTER Age: 73 years Sex: [...] when meets criteria ( To home ). [facility] Comment on above: Result Comment: Elec tronically Signed By: Jay Jay Valderrama Jr, DO\.br\Date and Time Signed: 03/20/25 13:19 EDT 06-02-2024 Evaluation + Plan note Extrac radha from: Title:[facility] [employer] Author:Asuncion Buchanan MD Date: 06/02/24 Impression and Plan Diagnosis Intrinsic sphincter deficiency (ISD) ([id number] N36.42, Discharge, Medical). Diagnosis Intrinsic sphincter deficiency (ISD) ([id number]-DK N36.42, Discharge, Medical). Future Appointments Appointment Date:07/08/2024 09:00:00 AM Scheduled Provider:Asuncion Buchanan MD Location:[facility] Appointment Type:URO Office Visit [facility] 03-18-2025 Hospital Discharge instructions Patient Education 06/02/2024 09:00:02 Post Op Patient Instructions - FT (CUSTOM) 06/02/2024 08:43:01 [facility] Post-Op Instructions (CUSTOM) [facility] [place] [place] Post-Operative Instructions for [employer] Congratulations on [...] may recommend a warm bath and/or an ntee-tcu-zkrgksv pain medication to reduce discomfort. If you [...] physician for acomplete list of instructions. 2020 [employer]. All rights reserved. This material contains registered trademarks, trade names, and brand names of [employer]. [phone] 02/2021 [employer] [address] [place] [address] [email or web address] Follow Up Care 04/22/2024 11:39:53 With:Asuncion Buchanan Address: [address] [place], [place] [phone] Business (1) When: Unknown Comments:Call to schedule your follow up in [address] [facility] 03-18-2025 NotePatient Education - Text [facility], [place] Post-Operative Instructions for [employer] [facility] Congratulations on starting your journey towards symptom [...] may recommend a warm bath and/or an gjmq-liy-dgxteyt pain medication to reduce discomfort. ??? If [...] for acomplete list of instructions. ??? 2020 [employer]. All rights reserved. This material contains registered trademarks, trade names, and brand names of [employer]. [phone] 02/2021 [employer] , [place] [address] www.[employer] [facility]03-07-2025 Telephone encounter Note* Telephone Encounter - Hollis Mckeon RN - 05/22/2024 11:40 AM EST Pt called, asked for return call. Called pt and question is what approval, upper or lower approvch for the enteroscopy procedure in June, she thought lower, but was told upper and concerned if lower, needs specific bowel prep, does better with miralax. Hollis Mckeon RN [facility] Work Phone: 1(306) 580-610203-07-2025 Miscellaneous Notes* Telephone Encounter - Hollis Mckeon RN - 05/22/2024 11:40 AM EST Pt called, asked for return call. Called pt and question is what approval, upper or lower approvch for the enteroscopy procedure in June, she thought lower, but was told upper and concerned if lower, needs specific bowel prep, does better with miralax. Hollis Mckeon RN documented in this encounterEast [facility] Hospital02-13-2025 History of Present illness Narrative* Charito Vasquez MD - 04/30/2024 9:20 AM EST Munira Chester returns to the office today and notes that her cough has been very rare but she still has frequent sneeze. She is still on Xhance and this will be coming from [facility] soon. It will be800 USD per 3 months at [facility]. She has no wheeze or asthma [...] sooner should problems arise. documented in this encounterLake Regional Health [id number] Hospital Discharge instructions Patient Education 04/22/2024 11:30:30 [...] nerve stimulation). ?For women, using a medical imaging technician to prevent urine leaks. This is a [...] right after experiencing incontinence. General instructions Take hxfe-saa-skgqpso and prescription medicines only as told by [...] important. Where to find more information National [place] of Diabetes and Digestive and Kidney Diseases: www.niddk.nih.gov [employer]: www.urologyhealth.org Contact a health care [...] provider. Document Revised: 10/07/2020 Document Reviewed: 10/07/2020 [facility] Patient Education 2023 [employer] Follow Up Care 03/05/2024 08:53:11 With:Dewayne VILLEGAS, RANDAL Arizmendi, URO Address: When: Unknown [facility] 02-05-2025 NotePatient Education Urology Urinary Incontinence Urinary [...] stimulation). ? For women, using a medical imaging technician to prevent urine leaks. This is a [...] your health care provider (more content not included)...[facility] 04-16-2024 History of Present illness Narrative* Madison [...] Mammogram 02/03/24 wnl, DEXA 02/05/23 osteopenia @ [facility] Review of Systems - General: Chills denies. [...] Review Audit Reviewed by Renita Lucia MA (Fire Sprinkler Apparatus Inspector) on 04/16/24 at 1057 Medication Order Taking? Sig Documenting Provider Last Dose Status albuterol HFA 90 mcg/act inhaler [id number] No Inhale 2 puffs Madison Burns, DO Taking Active amLODIPine (Norvasc) 5 MG tablet [id number] No Refills(s) 0 Madison Burns DO Taking Active atorvastatin (Lipitor) 10 MG tablet [id number] No 1 (one) time each day at the same time Madison Burns DO Taking Active azelastine (Astelin) 0.1 % nasal spray [id number] No Administer 2 sprays into each nostril in the morning and 2 sprays before bedtime. Use in each nostril as directed. Charito Vasquez MD Taking Active betamethasone valerate (Valisone) 0.1 % cream [id number] APPLY TO THE AFFECTED AREA TWICE A DAY Madison Burns DO Active betamethasone valerate (Valisone) 0.1 % ointment [id number] APPLY TO THE AFFECTED AREA EXTERNALLY TWOTIMES A DAY, REPLACES PREVIOUS SENT SCRIPT Madison Burns DO Active budesonide (Pulmicort) 0.5 MG/2ML nebulizer solution [id number] Take 2 mL (0.5 mg) by nebulization inthe morning. Rinse mouth with water after use to reduce aftertaste and incidence of candidiasis. Donot swallow.. Charito Vasquez MD Active cetirizine (ZyrTEC) 10 MG tablet [id number] Take 1 tablet (10 mg) by mouth Daily as needed for allergies Jeanette Luther MD Active doxycycline (Adoxa) 100 MG tablet [id number] No Take 100 mg by mouth in the morning and 100 mg beforebedtime. Take with a full glass of water and do not lie down for at least 30 minutes after. Jeanette Luther MD Taking Active EpiPen 2-Giovani 0.3 MG/0.3ML injection syringe [id number] No as directed Injection Agustín Hutchisonking Active estradiol (Estrace) 0.1 MG/GM vaginal cream [id number] No See Instructions, 42.5 gm, Refill(s) 0, apply pea sized amount to urethra 2x/wk, [facility], 158, cm, 02/20/23 8:48:00 EST, Height/Length Dosing, 68.5, kg, 02/20/23 8:48:00 EST, Weight Dosing Madison Burns DO TakingActive famotidine (Pepcid) 20 MG tablet [id number] No Take by mouth Madison Burns DO Taking Active fluocinonide (Lidex) 0.05 % external solution [id number] No Apply to affected areas on the scalp, up to twice a day when flared, 30 day supply Ama Mclaughlin APRN-JOSHUA Taking Active fluticasone (Flonase) 50 MCG/ACT nasal spray [id number] No Administer 2 sprays into each nostril Daily Shake gently. Before first use, prime pump. After use, clean tip and replace cap. Jeanette Luther MD Taking Active Fluticasone Propionate (Xhance) 93 MCG/ACT Exhaler Suspension [id number] Administer 1 spray into affected nostril(s) in the morning and 1 spray before bedtime. Charito Vasquez MD Active Fosamax 70 MG tablet [id number] No 1 tablet 30 minutes before the first food, beverage or medicine ofthe day with plain water Orally for 30 day(s) Madison Burns, Taking Active guaiFENesin-codeine (Robitussin-AC) 100-10 MG/5ML syrup [id number] No Take 5 mL by mouth 3 (three) times a day as needed Taking Active levothyroxine (Synthroid, Levoxyl) 88 MCG tablet [id number] No 1 (one) time each day at the same timeMadison Burns DO Taking Active loratadine-pseudoephedrine ER (Claritin-D 12-hour) 5-120 MG 12 hr tablet [id number] No Take 1 tablet by mouth in the morning and 1 tablet before bedtime. Do not crush, chew, or split.. Charito Vasquez MD Taking Active metoclopramide (Reglan) 10 MG tablet [id number] No Take 10 mg by mouth in the morning and 10 mg at noon and 10 mg in the evening and 10 mg before bedtime. Taking Active montelukast (Singulair) 10 MG tablet [id number] No 1 (one) time each day at the same time Madison Burns DO Taking Active pantoprazole (ProtoNix) 40 MG EC tablet [id number] Take 1 tablet (40 mg) by mouth in the morning and 1 tablet (40 mg) before bedtime. Do not crush, chew, or split.. Charito Vasquez MD Active predniSONE (Deltasone) 20 MG tablet [id number] No Take 20 mg by mouth Daily Taking Active RA Vitamin D-3 50 MCG (1999) capsule [id number] No Take 50 mcg by mouth in [...] Z78.0 DEXA bone density documented in this encounterLake Regional Health SystemJqzoufmkzr65-19-1452 NoteProgress Note-Physician Patient: MUNIRA CHESTER Age: 73 years Sex: Female : 1950 Associated Diagnoses: None Author: MD Camacho Ahmad F Postoperative Information Postoperative disposition: Postoperative disposition: To PACU. Optimetrix number: Optimetrix number [id number]. Anesthetic utilized: General. Health Status Allergies: Allergic [...] Discharge when meets criteria ( To home ).[facility] HospitalComment on above:Result Comment: Electronically Signed By: MD Camacho Ahmad F\.br\Date and Time Signed: 04/07/24 17:50 EST 04-07-2024 NoteProgress Note-Physician Patient: MUNIRA CHESTER Age: 73 years Sex: Female : 1950 Associated Diagnoses: None Author: MD Camacho Ahmad F Preoperative Information Time patient last ate or [...] day(s), # 2 tab(s), Refills(s) 0, Pharmacy: [facility], 158, cm, 03/24/24 11:38:00 EST, Height/Length Dosing, 75.5, kg, 03/24/24 11:38:00 EST, Weight Dosing... Macrobid 100 mg Cap: 100 mg = 1 cap(s), Oral, As Directed, take 1 tablet within 1 hour before or after intercourse to prevent infection., # 30 cap(s), Refills(s) 3, Pharmacy: [facility], 158, cm, 02/20/23 8:48:00 EST, Height/Length Dosing, 68.5, kg,... Pantoprazole [address] Tab: 40 mg = 1 tab(s), Oral, Daily, # 90 tab(s), Refills(s) 1, Pharmacy: [facility] [facility], 154.9, cm, 12/11/19 9:26:00 EDT, Height/Length Dosing, 70.2, kg, 12/11/19 9:26:00 EDT, Weight Dosing estradiol 0.1 mg/g Vag Crm: See Instructions, 42.5 gm, Refill(s) 0, apply pea sized amount to urethra 2x/wk, [facility], 158, cm, 02/05/24 11:08:00 EST, Height/Length Dosing, 62, kg, 02/05/24 11:08:00 EST, Weight Dosing oxybutynin 5 mg Tab: 5 mg = 1 tab(s), Oral, TID, PRN bladder spasms, # 30 tab(s), Refills(s) 0, Pharmacy: [facility], 158, cm, 03/24/24 11:38:00 EST, Height/Length [...] of stomach acid fluticasone 0.05 mg/inh Nasal Thomson: 2 spray(s), Nasal, Daily, Refill(s) 0 levothyroxine 100 mcg (0.1 mg) Tab: 100 mcg = 1 tab(s), Oral, Daily, Refills(s) 0, Thyroid montelukast 10 mg Tab: 10 mg = 1 tab(s), Oral, qPM, # 90 tab(s), Refills(s) 0, Asthma orphenadrine compounding powder: PRN Migraine headache, Refills(s) 0 Problem list: All Problems Acute allergic rhinitis due to pollen / SNOMED CT 80717341 / Confirmed Benign essential hypertension / SNOMED CT 5892815 / Confirmed GERD (gastroesophageal reflux disease) / SNOMED CT 772671186 / Confirmed Lumbar spondylosis / SNOMED CT 350201773 / Confirmed Cervical spondylosis / SNOMED CT 3508336802 / Confirmed History of gastric ulcer / SNOMED CT 790187573 / Confirmed Osteopenia of lumbar spine / SNOMED CT 484587396 / Confirmed Hyperlipidemia / SNOMED CT 06731373 / Confirmed Hypothyroidism, acquired, autoimmune / SNOMED CT 544401916 / Confirmed Chronic tension headache / SNOMED CT 789526531 / Confirmed Mild persistent asthma / SNOMED CT 6962057193 / Confirmed Bilateral cataracts / SNOMED CT 489642550 / Confirmed Migraine / SNOMED CT 45771001 / Confirmed Duodenal stricture / SNOMED CT 02359204 / Confirmed H/O gastric ulcer / SNOMED CT 243292483 / Confirmed Personal history of colonic polyps / SNOMED CT 8133646123 / Confirmed Epigastric pain / SNOMED CT 282699081 / Confirmed Abdominal bloating / SNOMED CT 095290384 / Confirmed Graves disease / SNOMED CT 483570273 / Confirmed Hypertension / SNOMED CT 1276683371 / Confirmed Asthma / SNOMED CT 098959762 / Confirmed Arthritis / SNOMED CT 3105260 / Confirmed Urinary tract infection / SNO (more content not included)...[facility] HospitalComment on above:Result Comment: Electronically Signed By: MD Camacho Ahmad F\.br\Date and Time Signed: 04/07/24 17:50 [id number] Evaluation + Plan noteExtracted from: Title:ANES Post Op - General Author:MD Camacho Ahmad F Date:04/07/24 Plan Transfer/Discharge: Transfer/Discharge Discharge when meets criteria ( To home ). 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 Urethral caruncle (QMQ61-RJ N36.2, Discharge, Medical). 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 Urethral caruncle (MNZ74-XB N36.2, Discharge, Medical). Extracted from: Title:ANES Pre Op - Adult General Author:Gi mayer MD, Ahmad F Date:04/07/24 Plan [place] [employer] Anesthesiologists (ASA) physical status classification: Class III. Anesthetic Preoperative Plan Anesthesia: General. . Anesthetic plan, risks, benefits, and alternatives discussed with the patient and/or family. Risks discussed: nausea, vomiting, headache, sore throat, dental injury, serious complications. Patient verbalized understanding. Communication: face to face with patient 5 minutes. Future Appointments Appointment Date:04/22/2024 10:45:00 AM Scheduled Provider:Asuncion Buchanan MD Location:[facility] Appointment Type:URO Office Visit [facility] 01-21-2025 Hospital Discharge instructions Patient Education 04/07/2024 10:47:43 White Catheter Care, Female-[facility] [place] (CUSTOM) White Catheter Care, [...] cotton underwear to absorb moisture and keep rotary drier feeder. 6. Keep the drainage bag below the [...] Instructions - FT (Custom) (CUSTOM) 04/07/2024 10:38:45 [place] - Post Op INstructions for Bladder Tumor, Bladder Biopsy (CUSTOM) [facility], [place] Post-Operative Instructions *Even though there are [...] bleeding * AZO (phenazopyridine) can be purchased zdlv-kfk-bbyglgl for burning with urination. This will make [...] do not hear from us by tomorrow. ([phone] or [phone]) Follow Up Care 02/24/2024 10:45:49 With:Asuncion Buchanan Address: [address] [place] [phone]- [phone] Business (1) When: Unknown Comments:Office to call to schedule your follow up: white removal and voiding trial in 1-2 days once urine is clear. Follow up in 1-2 weeks for pathology review. [facility] 01-21-2025 NotePatient Education - Text White Catheter [...] cotton underwear to absorb moisture and keep rotary drier feeder. 6. Keep the drainage bag below the [...] and call with any concerns. [facility], [place] Post-Operative Ins (more content not included)...[facility] 02-24-2024 Evaluation + Plan noteExtracted from: Title:EU- [...] Appointments Appointment Date:03/24/2024 07:30:00 AM Scheduled Provider: Location:[facility] Appointment Type:Surgical PAT FT Appointment Date:04/07/2024 09:30:00 AM Scheduled Provider: Location:[facility] Appointment Type:Surgery FT Diagnostic Tests Pending * Urine Cytology ([facility]) 02/24/[address] [facility] 12-09-2024 NoteProgress Note-Physician Patient: MUNIRA CHESTER Age: [...] infection., # 30 cap(s), Refills(s) 3, Pharmacy: [facility], 158, cm, 02/20/23 8:48:00 EST, Height/Length Dosing, 68.5, kg,... Pantoprazole [address] Tab: 40 mg = 1 tab(s), Oral, Daily, # 90 tab(s), Refills(s) 1, Pharmacy: [facility] [address] [facility], 154.9, cm, 12/11/19 9:26:00 EDT, Height/Length Dosing, 70.2, kg, 12/11/19 9:26:00 EDT, Weight Dosing estradiol 0.1 mg/g Vag Crm: See Instructions, 42.5 gm, Refill(s) 0, apply pea sized amount to urethra 2x/wk, [facility], 158, cm, 02/05/24 11:08:00 EST, Height/Length [...] of stomach acid fluticasone 0.05 mg/inh Nasal Thomson: 2 spray(s), Nasal, Daily, Refill(s) 0 levothyroxine [...] biopsy results. 3. Ure (more content not included)...[facility] HospitalComment on above:Result Comment: Electronically Signed By: Dewayne VILLEGAS, Asuncion [place]\.br\Date and Time Signed: 02/24/24 12:[id number] Hospital Discharge instructions Patient Education 02/24/2024 10:20:28 [...] cysto, urethral biopsy with fulguration under anesthesia [facility] 12-09-2024 NotePatient Education Cystoscopy ??? Voiding after [...] if you have a fever over 100 degrees.[facility] 02-05-2024 Hospital Discharge instructions Patient Education 02/05/2024 [...] provider. Document Revised: 07/13/2021 Document Reviewed: 07/13/2021 [facility] Patient Education 2023 [employer] Follow Up Care 02/20/2023 09:54:54 With:Dewayne VILLEGAS, RANDAL Arizmendi, URO Address: When: Unknown Comments:Schedule Cysto and Pelvic Exam [facility] 11-20-2024 NotePatient Education Obstetrics and Gynecology Kegel [...] provider. Document Revised: 07/13/2021 Document Reviewed: 07/13/2021 [facility] Patient Education ? 2023 [employer] 01-29-2024 History of Present illness Narrative* Marsha Lal, DO - 01/29/2024 8:15 AM EST Images [...] laser capsulotomy, they are to notify their grave digger promptly if they have a significant change in symptoms, such as flashes of light (photopsia), an increase in floaters, loss of visual field or decrease in visual acuity. documented in this encounterLake Regional Health SystemUocurkijdg76-71-2235 Evaluation note* Diagnosis Onset Date Resolution Status Admit Date Asthma acute February 05, 2024 8:24am Hypertension acute January 8:24am Hypothyroidism acute January 172023 8:24am Iron deficiency anemia acute No vem2023 8:24am Medicare annual wellness vis it, subsequent acute February 04, 024 8:24am Osteoporosis acute January 8:24am Screening mammogram for [facility] cancer acute February 04, 024 8:24am Small bowel stricture acute Jan 8:24am [facility] Work Phone: 1(657) 417-408210-14-2024 History of Present illness Narrative* Charito Vasquez [...] Xhance lavage and try and send to [facility]. Follow-up in 4 months. Discuss simons again at that time to see if [facility] pharmacy has been less expensive for her Xhance. documented in this encounterLake Regional Health SystemGojplnwvel96-40-3591 Instructions* Patient Instructions* Kasey Fallon MD - [...] am on dialysis? A: Please consult your silver spray worker prior to scheduling to get instructions pertinent to you. In general, dialysis patients take the Yaolan.comly bowel prep and have the procedure same [...] rest of the day. documented in this encounterEast [facility] Hospital10-11-2024 History of Present illness Narrative* Kasey [...] balloon enteroscopy Kasey Fallon MD 12/27/2023 Staff Emissions Inspector Digestive Diseases [facility] , REFERRING PROVIDER: Jones Ace [address] [facility] [address] REASON FOR REFERRAL: Small bowel stricture HISTORY: [...] Inhale 1 Inhalation as instructed once daily. Kpavmaltpf-Uyrjbnedrcxup-Mjnw (FIORICET) 50-300-40 mg cap Take by mouth. EPINEPHrine (EPIPEN) 0.3 mg/0.3 mL auto-injector Inject 0.3 mg intramuscularly as needed. fluticasone (FLONASE) 50 mcg/actuation nasal spray Use 1 Thomson in each nostril once daily. atorvastatin (LIPITOR) [...] dilated small bowel. No visualized stricture. RESULT: Insulator Technician radiograph shows no dilated bowel loops. Right [...] of records, and documentation. documented in this encounterEast Liverpool City Hospital10-11-2024 NoteHNO ID: [id number] Author: KASEY FALLON MD Service: ? Author [...] balloon enteroscopy Kasey Fallon MD 12/27/2023 Staff Emissions Inspector [facility] , REFERRING PROVIDER: Jones Ace [facility] [address] [facility] [address] REASON FOR REFERRAL: Small bowel stricture HISTORY: [...] Inhale 1 Inhalation as instructed once daily. Aomplsiqmy-Pllxmdlrqkohx-Acrh (FIORICET) 50-300-40 mg cap Take by mouth. EPINEPHrine (EPIPEN) 0.3 mg/0.3 mL auto-injector Inject 0.3 mg intramuscularly as needed. fluticasone (FLONASE) 50 mcg/actuation nasal spray Use 1 Thomson in each nostril once daily. atorvastatin (LIPITOR) [...] History: S/p laparoscopic cholecystectomy (more content not included)...[facility]10-09-2024 Telephone encounter Note* Telephone Encounter - Hollis Mckeon RN - 12/25/2023 2:56 PM EDT Pt called and left VM, said had small bowel xray done, saw results and now questioning if still needs appt with Dr. Fallon, scheduled for 12/26, asking for return call to clarify if still needs to come or can cx. Call cell phone at [phone]. Hollis Mckeon RN [facility]10-09-2024 Miscellaneous Notes* Telephone Encounter - Hollis Mckeon RN - 12/25/2023 2:56 PM EDT Pt called and left VM, said had small bowel xray done, saw results and now questioning if still needs appt with Dr. Fallon, scheduled for 12/26, asking for return call to clarify if still needs to come or can cx. Call cell phone at [phone]. Hollis Mckeon RN documented in this encounterEast Liverpool City Hospital10-08-2024 History of Present illness Narrative* Mary Jimenez RT(R) - 12/24/2023 9:40 AM EDT Radiology Service Progress Note PATIENT NAME: Munira Chetser DATE OF SERVICE: December 24, 2023 TIME: [...] PATIENT PRESENTS WITH AN IMPLANTABLE OR ATTACHED GREENHOUSE FLORIST: No RADIOLOGY DEPARTMENT: General X-ray: Exam(s) Completed: GI/ Procedure(s): Small bowel series withbarium contrast PERIPHERAL IV DATA: Not applicable SIGNED BY: MAC Borrero) December 24, 2023 2:19 PM documented in this encounterEast Liverpool City Hospital10-08-2024 NoteHNO ID: [id number] Author: MARY JIMENEZ RT (R) Service: Radiology Author Type: Technologist Type: Progress [...] PATIENT PRESENTS WITH AN IMPLANTABLE OR ATTACHED GREENHOUSE FLORIST: No RADIOLOGY DEPARTMENT: General X-ray: Exam(s) Completed: GI/ Procedure(s): Small bowel series with barium contrast PERIPHERAL IV DATA: Not applicable SIGNED BY: RT Adair(R) December 24, 2023 2:19 [facility]09-18-2024 Telephone encounter Note* Telephone Encounter - Hollis Mckeon RN - 12/04/2023 11:11 AM EDT Pt left VM and would like to reschedule GI test to earlier in week due to would like to come with her and drive and then maybe MD would also have test results before appt. Hollis Mckeon RN [facility]09-18-2024 Miscellaneous Notes* Telephone Encounter - Hollis Mckeon RN - 12/04/2023 11:11 AM EDT Pt left VM and would like to reschedule GI test to earlier in week due to would like to come with her and drive and then maybe MD would also have test results before appt. Hollis Mckeon RN documented in this encounterEast Liverpool City Hospital08-15-2024 Telephone encounter Note * Telephone Encounter - Rehana Hoang - 10/31/2023 9:30 AM EDT Patient called to see if you have received a fax from a Dr. Nettles's office for a pill cam? [facility]08-15-2024 Miscellaneous Notes* Telephone Encounter - Rehaan Hoang - 10/31/2023 9:30 AM EDT Patient called to see if you have received a fax from a Dr. Nettles's office for a pill cam? documented in this encounterEast Liverpool City Hospital07-31-2024 Telephone encounter Note * Telephone Encounter - Hollis Mckeon RN - 10/16/2023 1:49 PM EDT Faxed referral received on 10/15/23 for pt sent from Dr. Ace from [facility] to attention Dr. Fallon, for pt for GI for consideration for double balloon enteroscopy. What records were received were scanned to chart. Hollis Mckeon RN [facility]07-31-2024 Miscellaneous Notes* Telephone Encounter - Hollis Mckeon RN - 10/16/2023 1:49 PM EDT Faxed referral received on 10/15/23 for pt sent from Dr. Ace from [facility] to attention Dr. Fallon, for pt for GI for consideration for double balloon enteroscopy. What records were received were scanned to chart. Hollis Mckeon RN documented in this encounterEast Liverpool City Hospital06-29-2024 History of Present illness Narrative* Jhonny [...] doxycycline and prednisone. She was transitioned from [facility] to [facility] without significant benefit. When she was assessed [...] contrast media, Iodine, Wasp venom, Amoxicillin, Sulfacetamide jaf-sgibex-gnjn, Penicillin, and Sulfa (sulfonamide antibiotics) Current Meds: [...] apply pea sized amount to urethra 2x/wk, [facility], [facility], cm, 02/20/23 8:48:00 EST, Height/Length [...] at the same time, Disp: , Rfl: cczjkficeb-nesqhkqckusmi-uwhd (Fioricet) 50-300-40 mg capsule, Take by mouth., [...] LAD, no thyroid masses. SINONASAL ENDOSCOPY (CPT 31272): To better evaluate the patient's symptoms, sinonasal [...] given doxycycline and asked to begin dextromethorphan fmjc-wfh-ahodung. I personally reviewed the last note from Dr. Luther July 31, 2023. 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 All questions were answered. Between ugqz-lc-pitl contact, review of the medical record, and documentation I spent 65 minutes onthis evaluation during the day of service. Signature: Jhonny Maher MD documented in this [facility] Work Phone: [phone]) 940-412606-20-2024 Mason from [facility] called stating that a referral was faxed ton August 25 for patient for a double balloon enteroscopy. Had spoken with Dayan previously as we don't do the double balloons but referring physician is fine with just a single balloon. Patient is wanting to go to [facility] where a double balloon can be done so disregard this referral.[facility]06-12-2024 NoteCalled and spoke with Dayan at [facility] regarding a referral that was sent on August 25 for this patient. In reading the notes she is being referred for a double balloon enteroscopy and our physicians only do single balloon's. She will check with Dr. Ace to see how he would like to proceed and let me know.[facility]03-07-2024 Note [id number] [facility] 05-22-2023 Hospital Discharge instructions Patient Education 05/22/2023 08:58:47 Colonoscopy, Care After Surgery Layla (CUSTOM) Colonoscopy Care After Surgery Please read the instructions outlined below and refer to this sheet in the next few weeks. These discharge instructions provide you with general information on caring for [facility] Your doctor may also give you [...] unsweetened, w/added ascorbic acid 1 cup 0.5 Tunica 1 cup 0.7 Vegetables Cooked Green beans 1 cup 4.0 Carrots 1/2 cup sliced 2.3 Peas 1 cup 8.8 Potato (baked, with skin) 1 medium potato 3.8 Raw [place] (with peel) 1 cucumber 1.5 Lettuce 1 [...] 8.7 Peanuts 1/2 cup 7.9 [facility] from [facility] 2013. SEEK IMMEDIATE MEDICAL CARE [...] Nutrient Database for Standard Reference. Available at http://www.Tapestry.usda.gov/fnic/foodcomp/search/. Information adapted from: [facility] Patient Information 2009 [employer] Fleck - The Bigger Picture 2012 http://www.[employer]/contents/hdbbezolrrct-homxlhc-ysrqxl-the-basics 05/22/2023 08:58:41 Hemorrhoids, Pmiy-ix-Lror Hemorrhoids Hemorrhoids are swollen veins that may [...] 3 times a day. General instructions Take gdxu-jat-wwdoyno and prescription medicines only as told by [...] provider. Document Revised: 09/13/2021 Document Reviewed: 09/13/2021 [employer] Patient Education 2022 [employer] 05/22/2023 08:58:37 Endoscopy, Care After Procedure [facility] [place] Endoscopy Care After Procedure Please read the instructions outlined below and refer to this sheet in the next few weeks. These discharge instructions provide you with general information on caring for [facility]. Your doctor may also give you [...] blood. Document Released: 10/16/2004 Document Re-Released: 08/26/2006 [employer] Patient Information [employer] 05/22/2023 08:58:29 Hiatal Hernia Hiatal Hernia A [...] reduce GERD symptoms. Medicines. These may include: ?Gwet-dlr-zfxiqvo antacids. ?Medicines that make your stomach empty [...] may include: ?Fatty foods, like fried foods. ?[place] fruits, like oranges or lemon. ?Other foods [...] Do not drink alcohol. General instructions Take pbob-aqm-mnjkolv and prescription medicines only as told by [...] provider. Document Revised: 05/01/2022 Document Reviewed: 05/01/2022 [employer] Patient Education 2022 [employer] Follow Up Care 05/14/2023 13:37:06 With:Tho VILLEGAS, ANGLE Villanueva, MED Address: When: Unknown Comments:Call for any problems. The office will reach out in about one week from procedure date. 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 Mar, Gastroesophageal reflux disease with esophagitis without hemorrhage (ICD-10 - K21.00) Avoid lying flat after eating. Avoid eating 2 hours prior to bedtime. Smaller, frequent meals may be better tolerated.Weight loss if overweight.PPI with any heartburn.Monitor for dysphagia. [facility] Other 01-18-2024 Evaluation note* Encounter Date Diagnosis Assessment Notes Treatment Notes Treatment Clinical Notes Mar, Iron deficiency anemia due to chronic blood loss (ICD-10 - D50.0) [facility] Other 12-22-2023 Evaluation note* Encounter Date Diagnosis Assessment Notes Treatment Notes Treatment Clinical Notes Feb, Iron deficiency anemia due to chronic blood loss (ICD-10 - D50.0) [facility] Other 12-20-2023 Evaluation note* Encounter Date Diagnosis Assessment Notes Treatment Notes Treatment Clinical Notes Feb, Anemia (ICD-10 - D64.9) [facility] Other 12-11-2023 Evaluation note* Encounter Date Diagnosis Assessment Notes Treatment Notes Treatment Clinical Notes Feb, Moderate persistent asthma without complication (ICD-10 - J45.40) [facility] Other 12-06-2023 Hospital Discharge instructions Patient Education [...] relieve pelvic muscle tension or spasms. Take cmta-xfj-qxntanx and prescription medicines only as told by [...] provider. Document Revised: 07/12/2021 Document Reviewed: 07/12/2021 [employer] Patient Education 2022 [employer] 02/20/2023 09:44:59 Kegel Exercises Kegel Exercises Kegel [...] provider. Document Revised: 07/13/2021 Document Reviewed: 07/13/2021 [employer] Patient Education 2022 [employer] Follow Up Care 01/31/2022 08:50:25 With:Dewayne VILLEGAS, Asuncion London, RANDAL, URO Address: [facility] [place] [address]- [phone] When: Unknown Comments:1 yr [facility] 12-04-2023 Evaluation note* Encounter Date Diagnosis Assessment Notes Treatment Notes Treatment Clinical Notes Feb, Moderate persistent asthma with acute exacerbation (ICD-10 - J45.41) Holding Breo for trial of Trelegy. Avoid dust, mold, fumes as much as possible. Steroid taper to break cycle of coughing Refer to Assurance Manager and Rat Trapper when stable Feb, Non-seasonal allergi c rhinitis due to other allergic trigger (ICD-10 - J30.89) Continue FLonase NS Add Astepro NS Continue Claritin and Singulair Feb, Gastroesophageal reflux disease with esophagitis without hemorrhage (ICD-10 - K21.00) Diet instructions: Smaller portions, avoid eating and laying flat, avoid eating or drinking prior to bedtime. Weight loss. Continue PPI [facility] Other 11-21-2023 Evaluation note* Encounter Date Diagnosis Assessment Notes Treatment Notes Treatment Clinical Notes Jan, Age-related osteopor osis without current pathological fracture (ICD-10 - M81.0) Jan, Hypercholesteremia (ICD-10 - E78.00) [facility] Other 11-14-2023 Evaluation note* Encounter Date Diagnosis Assessment Notes Treatment Notes Treatment Clinical Notes Jan, Menopause (ICD-10 - Z78.0) [facility] Other 11-10-2023 Evaluation note* Encounter Date Diagnosis Assessment Notes Treatment Notes Treatment Clinical Notes Jan, Hypercholesteremia (ICD-10 - E78.00) [facility] Other 11-10-2023 Evaluation note* Encounter Date Diagnosis [...] much improved. Offered PFT and referral to Rat Trapper. Jan, Autoimmune thyroidit is (ICD-10 - E06.3) [...] LORENZO (generalized anxiety disorder) (ICD-10 - F41.1) [facility] Other 09-27-2023 Evaluation note* Encounter Date Diagnosis Assessment Notes Treatment Notes Treatment Clinical Notes Nov, Moderate persistent asthma with acute exacerbation (ICD-10 - J45.41) Reviewed medication - continue LABA/ICS and NIKO - continue Singulair, Claritin and Flonase Suggested short course of Steroids and antibiotics. Discussed use of LAMA in combination of what she is presently taking CXR if no improvement [facility] Other 08-23-2023 Evaluation note* Encounter Date Diagnosis Assessment Notes Treatment Notes Treatment Clinical Notes Oct, Mild persistent asthma, uncomplicated (ICD-10 - J45.30) [facility] Other 08-17-2023 Evaluation note* Encounter Date Diagnosis [...] understanding and is agreeable to treatment plan [facility] Other 04-12-2023 NotePROCEDURE: XR FOOT RT MIN [...] Electronically authenticated by: JEROME ESPINOSA Date: 2022-06-27 15:36[facility]03-02-2023 NotePROCEDURE: XR FOOT RT MIN [...] Electronically authenticated by: CAMPOS ERAZO Date: 2022-05-17 16:27[facility]02-09-2023 NotePROCEDURE: XR FOOT RT MIN [...] Electronically authenticated by: JEROME ESPINOSA Date: 2022-04-26 09:37[facility]01-19-2023 NotePROCEDURE: XR FOOT RT MIN [...] Electronically authenticated by: JEROME ESPINOSA Date: 2022-04-05 14:43[facility]01-19-2023 NotePROCEDURE: XR FOOT RT 2V [...] Electronically authenticated by: JEROME ESPINOSA Date: 2022-04-05 14:41[facility]01-11-2023 NotePROCEDURE: XR FOOT RT MIN [...] Electronically authenticated by: JEROME ESPINOSA Date: 2022-03-28 10:17[facility]12-26-2022 NotePROCEDURE: XR FOOT RT MIN [...] Electronically authenticated by: JEROME ESPINOSA Date: 2022-03-12 09:46[facility]12-19-2022 Evaluation note* Encounter Date Diagnosis Assessment Notes Treatment Notes Treatment Clinical Notes Feb, Acute pain of left shoulder (ICD-10 - M25.512) Feb, Tear of left supraspinatus tendon (ICD-10 - M75.102) A 1/1cc marcaine / kenalog cortisone injection was performed into the subacromial space under sterile technique. Patient tolerated the injection well with no adverse reaction. [facility] Other 09-16-2022 Hospital Discharge instructions Patient Education [...] nerve stimulation). For women, using a medical imaging technician to prevent urine leaks. This is a [...] right after experiencing incontinence. General instructions Take rsts-trm-ewitcsv and prescription medicines only as told by [...] 04/11/2005 Document Revised: 03/14/2018 Document Reviewed: 06/13/2017 [employer] [facility] Patient Education 2020 [employer] Follow Up Care 10/20/2021 08:23:44 With:Dewayne VILLEGAS, Asuncion London, RANDAL, URO Address: When: Unknown [facility] [place] 2022 Evaluation note* Encounter Date Diagnosis Assessment [...] the injection well with no adverse reaction. [facility] Other Evaluation + Plan note Future Appointments Appointment Date:01/31/2022 08:00:00 AM Scheduled Provider:Asuncion Buchanan MD Location:[facility] Appointment Type:URO Office Visit [facility] Evaluation + Plan note Future Appointments Appointment Date:02/19/2024 08:00:00 AM Scheduled Provider:Asuncion Buchanan MD Location:[facility] Appointment Type:URO Office Visit [facility] evaluation + Plan note Future Appointments Appointment Date:05/22/2023 08:00:00 AM Scheduled Provider: Location:[facility] Services Appointment Type:Surgery FT Appointment Date:02/19/2024 08:00:00 AM Scheduled Provider:Asuncion Buchanan MD Location:[facility] Appointment Type:URO Office Visit [facility] Evaluation + Plan note Future Appointments Appointment Date:07/23/2023 08:00:00 AM Scheduled Provider: Location:.[facility] Appointment Type:CT Sinus/Orbits/Maxillofacial (FT) Appointment Date:02/19/2024 08:00:00 AM Scheduled Provider:Asuncion Buchanan MD Location:[facility] Appointment Type:URO Office Visit Future Scheduled Tests Radiology* XR Abdomen 1 View 07/04/23 * CT Maxillofacial w/o Contrast 07/23/23 [facility] Evaluation + Plan note Future Appointments Appointment Date:07/23/2023 08:00:00 AM Scheduled Provider: [facility] Type:CT Sinus/Orbits/Maxillofacial (FT) Appointment Date:02/19/2024 08:00:00 AM Scheduled Provider:Asuncion Buchanan MD Location:[facility] Appointment Type:URO Office Visit Future Scheduled Tests Radiology* CT Maxillofacial w/o Contrast [facility] [facility] App[facility]ments Appointment Date:07/23/2023 08:00:00 AM Scheduled Provider: [facility] Type:CT Sinus/Orbits/Maxillofacial () Appointment Date:08/15/2023 08:15:00 AM Scheduled Provider:Del Nettles MD Location[place] [place] [facility] Appointment Type:[facility] Follow Up Appointment Date:02/19/2024 08:00:00 AM Scheduled Provider:Asuncion Buchanan MD Location:[facility] Appointment Type:URO Office Visit Future Scheduled Tests Radiology* CT Maxillofacial w/o Contrast 07/23/23 [facility] Evaluation + Plan note Future Appointments Appointment Date:08/15/2023 08:15:00 AM Scheduled Provider:Del Nettles MD Location:[facility] [place] [facility] Appointment Type:[facility] Follow Up Appointment Date:02/19/2024 08:00:00 AM Scheduled Provider:Asuncion Buchanan MD Location:[facility] App[facility]ment Type:URO [facility] Future Appointments Appointment Date:02/05/2024 10:45:00 AM Scheduled Provider:Asuncion Buchanan MD Location:[facility] Appointment Type:URO Office Visit [facility] evaluation + Plan note Future Appointments Appointment Date:02/05/2024 10:45:00 AM Scheduled Provider:Asuncion Buchanan MD Location:[facility] Appointment Type:URO Office Visit Diagnostic Tests Pending * Urine Culture 12/27/[address] [facility] evaluation + Plan note Future Appointments Appointment Date:02/17/2024 09:00:00 AM Scheduled Provider: Location:[facility] Surgical [facility] Appointment Type:Urology CALL PAT FT Appointment Date:02/24/2024 09:30:00 AM Scheduled Provider: Location:[facility] Appointment Type:Urology FT [facility] evaluation + Plan note Future Appointments Appointment Date:04/07/2024 09:30:00 AM Scheduled Provider: Location:[facility] Appointment Type:Surgery FT Appointment Date:04/22/2024 10:45:00 AM Scheduled Provider:Asuncion Buchanan MD Location:[facility] Appointment Type:URO Office Visit Diagnostic Tests Pending * Urine Culture 03/24/[address] [facility] evaluation + Plan note Future Appointments Appointment Date:04/22/2024 10:45:00 AM Scheduled Provider:Asuncion Buchanan MD Location:[facility] Appointment Type:URO Office Visit [facility] evaluation + Plan note Future Appointments Appointment Date:05/20/2024 07:30:00 AM Scheduled Provider: Location:[facility] Appointment Type:Surgical PAT FT Appointment Date:06/02/2024 09:30:00 AM Scheduled Provider: Location:[facility] Appointment Type:Surgery FT [facility] Evaluation + Plan note Future Appointments Appointment Date:06/02/2024 09:30:00 AM Scheduled Provider: Location:[facility] Appointment Type:Surgery FT Diagnostic Tests Pending * Urine Culture 05/20/[address] [facility] Evaluation + Plan note Future Appointments Appointment Date:11/05/2024 08:15:00 AM Scheduled Provider:Del Nettles MD Location:[facility] [place] [facility] Appointment Type:BADH Follow Up [facility] Evaluation noteNo InformationNort [employer] Other Evaluation noteNo assessment information [facility] Work Phone: Evaluation note* Diagnosis Other partial intestinal obstruction (HCC)- Primary [facility] Diagnosis Other partial intestinal obstruction (HCC) [facility] Diagnosis Iron deficiency anemia due to chronic blood loss- Primary Iron deficiency anemia secondary to blood loss (chronic) Abnormal finding on GI tract imaging Nonspecific (abnormal) findings on radiological and other examination of gastrointestinal tract [facility] Diagnosis Chronic maxillary sinusitis- Primary Chronic pansinusitis Other chronic sinusitis documented in this encounter [facility] HealthcareEvaluation note* Diagnosis Keratoconjunctivitis sicca of both eyes not specified as Sjogren's- Primary Blepharitis of upper and lower eyelids of both eyes, unspecified type Bilateral posterior capsular opacification Unspecified after-cataract documented in this encounter [facility] HealthcareEvaluation note* Diagnosis Chronic maxillary sinusitis- Primary Chronic ethmoiditis Chronic ethmoidal sinusitis Chronic cough Cough Asthma, unspecified asthma severity, unspecified whether complicated, unspecified whether persistent ([facility]) documented in this encounter [facility] Work Phone: Evaluation note* Diagnosis Encounter for gynecological examination without abnormal finding Screening for malignant neoplasm of cervix Screening for malignant neoplasm of the cervix Encounter for screening mammogram for breast cancer Lichen sclerosus et atrophicus Circumscribed scleroderma Screening for osteoporosis Special screening for osteoporosis Postmenopausal status, age-related documented in this encounter [facility] HealthcareEvaluation note* Diagnosis Chronic maxillary sinusitis- Primary [facility]* Diagnosis Iron deficiency anemia due to chronic blood loss Iron deficiency anemia secondary to blood loss (chronic) Abnormal finding on GI tract imaging Nonspecific (abnormal) findings on radiological and other examination of gastrointestinal tract documented in this encounter 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 note* Diagnosis Onset Date Resolution Status Admit Date Osteoporosis acute December 22, 2024 9:42am [facility] Work Phone: Hisexmh general Narrative - Reported* Type Description Date [...] above Hospitalization History blood transfusion from b [employer] Other Hisfj[facility] general Narrative - Reported* Type Description Date [...] above Hospitalization History blood transfusion from b [employer] Other Hisosjd general Narrative - Reported* Type Description Date [...] above Hospitalization History blood transfusion from b [employer] Other Hisoepv general Narrative - Reported* Type Description Date [...] above Hospitalization History blood transfusion from b [employer] Other Hisnidv general Narrative - Reported* Type Description Date [...] above Hospitalization History blood transfusion from b [employer] Other Hospital course Narrative No data available for this section [facility] Discharge instructions No data available for this section [facility] Progress note No data available for this section [facility] Reason for referral (narrative)* Reason *FU 04/23 Referral for iron deficiency anemia. Diagnosis 1 Iron deficiency anem ia secondary to inadequate dietary iron intake (D50.8) Referral Organization [facility] kenny Referring Provider First Name Andrea Referring Provider Last Name Ch[place] Referring Provider Specialty Internal Dc dicine Referred Organization [facility] Referred Provider CHRISSY HECTOR Referred Address [address] [place], [place],[address] Referred Provider Specialty Hematology Referral Priority Routine [...] faxed Clinical Notes Include labs results p: [id number] f: [id number] Reason Referral for pe rsistent cough and wheezing Diagnosis 1 Moderate persistent asthma with acute exacerbation (J45.41) Referral Organization [facility] [employer] kenny Referring Provider First Name Andrea Referring Provider Last Name [place] Referring Provider Specialty Internal Me dicine Referred Organization [facility] Referred Provider Edouard Espinosa Referred Address [address] [place], [place],[address] Referred Provider Specialty Pulmonary Di seases Referral Priority Routine General Notes Patient w/ allergic rhinitis and asthma w/ deterioration of her symptoms over the past year. Her medications have been maximized and alternative etiology for cough and wheezing addressed. She has been referred to an Assurance Manager for evaluation and scheduled for a PFT. [...] inadequate dietary iron intake (D50.8) Referral Organization [facility] [employer] Ladonna cox Referring Provider First Name Andrea Referring Provider Last Name Ch[place] Referring Provider Specialty Internal Me dicine Referred Organization [facility] Referred Address [address],[place], [place],[address] Referred Provider Specialty Gastroentero logy Referral Priority [...] notes locked, referral faxed Clinical Notes f: [id number] [facility] Other Reason for referral (narrative)* Reason *FU 04/23 Referral for iron deficiency anemia. Diagnosis 1 Iron deficiency anem ia secondary to inadequate dietary iron intake (D50.8) Referral Organization [facility] [employer] kenny Referring Provider First Name Andrea Referring Provider Last Name [place] Referring Provider Specialty Internal Me dicine Referred Organization [facility] Referred Provider CHRISSY HECTOR Referred Address [address] [place], [place],[address] Referred Provider Specialty Hematology Referral Priority Routine [...] faxed Clinical Notes Include labs results p: [id number] f: [id number] Reason Referral for pe rsistent cough and wheezing Diagnosis 1 Moderate persistent asthma with acute exacerbation (J45.41) Referral Organization [facility] [employer] kenny Referring Provider First Name Andrea Referring Provider Last Name [place] Referring Provider Specialty Internal Me dicine Referred Organization [facility] Referred Provider Edouard Espinosa Referred Address [address] [place], [place],[address] Referred Provider Specialty Pulmonary Di puraes Referral Priority Routine General Notes Patient w/ allergic rhinitis and asthma w/ deterioration of her symptoms over the past year. Her medications have been maximized and alternative etiology for cough and wheezing addressed. She has been referred to an Assurance Manager for evaluation and scheduled for a PFT. [...] inadequate dietary iron intake (D50.8) Referral Organization [facility]enny Referring Provider First Name Andrea Referring Provider Last Name [place] Referring Provider Specialty Internal Me dicine Referred Organization [facility] Referred Address [address] [address], [place],[address] Referred Provider Specialty Gastroentero logy Referral Priority [...] to Hematology for IV iron and evaluation. TRELYS Other Reason for referral (narrative)* Diagnostic Procedure Only (Routine) - Closed Specialty Diagnoses / Procedures Referred By hCinmay stark Referred To Contact XR IMAGING Diagnoses Other partial intestinal obstruction (HCC) Procedures XR SMALL BOWEL SERIES RADIOLOGIC EXAM SMALL INT SINGLE CONTRAST STUDY Kasey Fallon MD [address] [address] [place] [address] Referral ID Status Reason Start Date Expiration Date V isits Requested Visits Authorized [id number] Closed Auto-Generate d Referral 11/22/2023 12/21/2024 1 [facility] Out[facility] Procedure (Routine) - New Request Specialty Diagnoses / Procedures Referred By Chinmay t Referred To Contact [facility] Diagnoses Iron deficiency anemia due to chronic blood loss Abnormal finding on GI tract imaging Procedures ENTEROSCOPY ENTEROSC >2ND PRTN W/ILEUM W/BX SINGLE/MULTIPLE UNLISTED PROCEDURE SMALL INTESTINE Kasey Fallon MD [email or web address] [address] [place], [place] [id number] [facility] [address] [place], [place] [id number] Referral ID Status Reason Start Date Expiration Date Visits Requested Visits Authorized [id number] New Request Auto-Generat ed Referral 12/26/2024 1 1 [facility] for referral (narrative)No reason for referral information [facility] Work Phone: Reason for visit Narrative* Outpatient Procedure (Routine) - Closed Specialty Diagnoses / Procedures Referred By Chinmay t Referred To Contact [facility] Diagnoses Iron deficiency anemia due to chronic blood loss Abnormal finding on GI tract imaging Procedures ENTEROSCOPY ENTEROSC >2ND PRTN W/ILEUM W/BX SINGLE/MULTIPLE UNLISTED PROCEDURE SMALL INTESTINE Kasey Fallon MD [facility] [address] [id number] Phone: tel: fax: [facility] [address] [place] [id number] Referral ID Status Reason Start Date Expiration Date V isits Requested Visits Authorized [id number] Closed Auto-Generate d Referral 12/27/2023 12/26/2024 1 1 [facility] Summary Purpose Family History Relationship Condition Age [...] mother Diabetes mellitus Unknown Unknown Advance Directives Advance [...] 8:24am Screening mammogram for breast cancer No [facility]2023 8:24am Small bowel stricture February 04 8:24am Chief Complaint Admit Date back pain December 22, 2024 9: 42am Reason for Visit Admit Date Osteoporosis December 22, 2024 9: 42am Reason for Referral Specialty Diagnoses / Procedures Referred By Chinmay t Referred To Contact CT IMAGING Diagnoses Other partial intestinal obstruction (HCC) Procedures CT ENTEROGRAPHY W IVCON CT ABD & PELVIS W/[place] [address] [place] [address] Referral ID Status Reason Start Date Expiration Date Visits Requested Visits Authorized [id number] New Request Auto-Generat ed Referral 10/31/2023 11/29/2024 [...] INT SINGLE CONTRAST STUDY Kasey Fallon MD [facility] [address] [id number] [place] [address] Referral ID Status Reason Start Date Expiration Date V isits Requested Visits Authorized [id number] Closed Auto-Generate d Referral 11/22/2023 12/21/2024 1 [...] section and content) DATE CREATED AUTHOR 10/11/2021 [facility] DATE CREATED AUTHOR AUTHOR'S ORGANIZ ATION 07/02/2022 [facility] DATE CREATED AUTHOR AUTHOR'S ORGANIZ ATION 09/07/2023 [facility] DATE CREATED AUTHOR AUTHOR'S ORGANIZ ATION 09/15/[address] [facility] DATE CREATED AUTHOR AUTHOR'S ORGANIZ ATION 10/12/2023 [facility] DATE CREATED AUTHOR AUTHOR'S ORGANIZ ATION 11/10/2023 [facility] DATE CREATED AUTHOR AUTHOR'S ORGANIZ ATION 01/01/2024 [facility] DATE CREATED AUTHOR AUTHOR'S ORGANIZ ATION 02/08/2024 [facility] DATE CREATED AUTHOR AUTHOR'S ORGANIZ ATION 02/27/2024 [facility] DATE CREATED AUTHOR AUTHOR'S ORGANIZ ATION 03/30/2024 [facility] DATE CREATED AUTHOR AUTHOR'S ORGANIZ ATION 03/31/2024 [facility] DATE CREATED AUTHOR AUTHOR'S ORGANIZ ATION 04/10/2024 [facility] DATE CREATED AUTHOR AUTHOR'S ORGANIZ ATION 04/19/2024 [facility] DATE CREATED AUTHOR AUTHOR'S ORGANIZ ATION 04/24/2024 [facility] DATE CREATED AUTHOR AUTHOR'S ORGANIZ ATION 05/21/2024 [facility] DATE CREATED AUTHOR AUTHOR'S ORGANIZ ATION 05/22/2024 [facility] DATE CREATED AUTHOR AUTHOR'S ORGANIZ ATION 05/24/2024 [facility] DATE CREATED AUTHOR AUTHOR'S ORGANIZ ATION 07/23/2024 [facility] DATE CREATED AUTHOR AUTHOR'S ORGANIZ ATION 12/18/2024 [facility] DATE CREATED AUTHOR AUTHOR'S ORGANIZ ATION 12/29/2024 [facility] Care Teams (unrecognized sec tion and content) Team Status: Active Member Role Status Dates Andrea Golden DO Primary Care Provider Active Team Status: Active Member Role Status Dates Andrea Golden DO Primary Care Provider Active Start: May 23, 2023 Lisa Em Attending Provider Active Start: [facility] 2023 Team Status: Active Member Role [...] Dates Espinoza Ruiz MD Attending Provider Active [employer] [employer] Relationship Specialty Start Date End Date Andrea Golden MD [address] [place] [address] PCP - General Internal Medicine 08/27/22 Team Status: Inactive Member Role Status Dates Andrea Golden DO Attending Provider Active Sta rt: April 16, 2023 End: April 16, [address] [employer] [address] Relationship Specialty Start Date End Date Andrea Golden DO [address] [place] [address] PCP - General Internal Medicine 12/27/23 Jones Ace MD [address] [place] [address] Internal Medicine 12/27/23 Chrissy Hector MD [address] [place] [address] Hematology/Oncology 12/27/[address] [employer] [address] Relationship Specialty Start Date End Date Andrea Golden MD PCP - General Internal Medicine 08/27/[address] [employer] [address] Relationship Specialty Start Date End Date Andrea [...] February 05, 2024 End: February 05, [address] [employer] [address] Relationship Specialty Start Date End Date Andrea Golden MD PCP - General Internal Medicine 08/27/[address] [employer] [address] Relationship Specialty Start Date End Date Andrea Golden MD PCP - General Internal Medicine 08/27/[address] [employer] [address] Relationship Specialty Start Date End Date Andrea Golden MD PCP - General Internal Medicine 08/27/[address] [employer] [address] Relationship Specialty Start Date End Date Andrea Golden MD PCP - General Internal Medicine 08/27/[address] [employer] [address] Relationship Specialty Start Date End Date Andrea Golden MD PCP - General Internal Medicine 08/27/[address] [employer] [address] Relationship Specialty Start Date End Date Andrea Golden DO [address] [id number] PCP - General Internal Medicine 12/27/23 Jones Ace MD [address] [address] Internal Medicine 12/27/23 Chrissy Hector MD [address] [place] [address] Hematology/Oncology 12/27/[address] [employer] [address] Relationship Specialty Start Date End Date Andrea Golden DO [address] [place] [address] PCP - General Internal Medicine 12/27/23 Jones Ace MD [address] [place] [address] Internal Medicine 12/27/23 Chrissy Hector MD [address] [place] [address] Hematology/Oncology 12/27/[address] [employer] [address] Relationship Specialty Start Date End Date Andrea Golden DO [address] [place] [address] PCP - General Internal Medicine 12/27/23 Jones Ace MD [address] [place] [address] Internal Medicine 12/27/23 Chrissy Hector MD [address] [place] [address] Hematology/Oncology 12/27/[address] [employer] [address] Relationship Specialty Start Date End Date Andrea Golden DO [address] [place] [address] PCP - General Internal Medicine 12/27/23 Jones Ace MD [address] [address] Internal Medicine 12/27/23 Chrissy Hector MD [address] [place] [address] Hematology/Oncology 12/27/[address] [employer] [address] Relationship Specialty Start Date End Date Andrea Golden DO [address] [place] [address] PCP - General Internal Medicine 12/27/23 Jones Ace MD [address] [place] [address] Internal Medicine 12/27/23 Chrissy Hector MD [address] [place] [address] Hematology/Oncology 12/27/[address] [employer] [address] Relationship Specialty Start Date End Date Andrea Golden DO [address] [id number] PCP - General Internal Medicine 12/27/23 Jones Ace MD [address] [place] [id number] Internal Medicine 12/27/23 Chrissy Hector MD [address] [place] [address] Hematology/Oncology 12/27/[address] [employer] [address] Relationship Specialty Start Date End Date Andrea Golden DO PCP - General Internal Medicine 08/27/22 Team Status: Active Member Role Status Dates Andrea Golden DO Primary Care Provider Active Start: October 02, 2024 Abe Mojica DO Attending Provider Active S tart: October 02, 2024 Team Status: Inactive Member Role Status Dates Andrea Golden DO Primary Care Provider Active Start: December 22, 2024 End: December 22, 2024 Andrea Golden DO Attending Provider Active Sta rt: December 22, 2024 End: December 22, [address] [employer] [address] Relationship Specialty Start Date End Date Andrea [...] or prosecute any alcohol or drug abuse patient.[facility] the event this information is protected by the Federal Confidentiality of Alcohol and Drug Abuse Patient Records regulations: The Federal rules restrict any use of the information to criminally investigate or prosecute any alcohol or drug abuse patient.[facility] the event this information is protected by the Federal Confidentiality of Alcohol and Drug Abuse Patient Records regulations: The Federal rules restrict any use of the information to criminally investigate or prosecute any alcohol or drug abuse patient.[facility] the event this information is protected by the Federal Confidentiality of Alcohol and Drug Abuse Patient Records regulations: The Federal rules restrict any use of the information to criminally investigate or prosecute any alcohol or drug abuse patient.[facility] the event this information is protected by the Federal Confidentiality of Alcohol and Drug Abuse Patient Records regulations: The Federal rules restrict any use of the information to criminally investigate or prosecute any alcohol or drug abuse patient.[facility] the event this information is protected by the Federal Confidentiality of Alcohol and Drug Abuse Patient Records regulations: The Federal rules restrict any use of the information to criminally investigate or prosecute any alcohol or drug abuse patient.[facility] the event this information is protected by the Federal Confidentiality of Alcohol and Drug Abuse Patient Records regulations: The Federal rules restrict any use of the information to criminally investigate or prosecute any alcohol or drug abuse patient.[facility] the event this information is protected by the Federal Confidentiality of Alcohol and Drug Abuse Patient Records regulations: The Federal rules restrict any use of the information to criminally investigate or prosecute any alcohol or drug abuse patient.[facility] the event this information is protected by the Federal Confidentiality of Alcohol and Drug Abuse Patient Records regulations: The Federal rules restrict any use of the information to criminally investigate or prosecute any alcohol or drug abuse patient.[facility] the event this information is protected by the Federal Confidentiality of Alcohol and Drug Abuse Patient Records regulations: The Federal rules restrict any use of the information to criminally investigate or prosecute any alcohol or drug abuse patient.[facility] the event this information is protected by the Federal Confidentiality of Alcohol and Drug Abuse Patient Records regulations: The Federal rules restrict any use of the information to criminally investigate or prosecute any alcohol or drug abuse patient.[facility] the event this information is protected by the Federal Confidentiality of Alcohol and Drug Abuse Patient Records regulations: The Federal rules restrict any use of the information to criminally investigate or prosecute any alcohol or drug abuse patient.[facility] the event this information is protected by the Federal Confidentiality of Alcohol and Drug Abuse Patient Records regulations: The Federal rules restrict any use of the information to criminally investigate or prosecute any alcohol or drug abuse patient.[facility] FOR RECORDS PERTAINING TO PATIENTS WHO [...] BE BASED ON THE PRIMARY CLINICAL RECORDS. [facility] [employer] [facility]. provides no warranty or guarantee of the accuracy or completeness of information in this document.
== END 2024-12-29 09:48 | disposition home or self-care (01) ==
LOC: MRI 09:47
PROVIDERS: PCP Internal Medicine; Visit Provider Internal Medicine
DX: M54.50 Low back pain, unspecified (principal); M47.816 Spondylosis without myelopathy or radiculopathy, lumbar region; M51.369 Other intervertebral disc degeneration, lumbar region without mention of lumbar back pain or lower extremity pain
CPT/HCPCS: 72148

== ENCOUNTER 2025-01-19 07:20 | Outpatient (OUT) | payer MEDICARE, OTHER, SELFPAY ==
--- OUTSIDE RECORDS SUMMARY | 2023-11-26 03:30 | XMS_ITS ---
Author Organization [facility] [place] Address [address] [place] [address] Care Team Providers Care Medical Library Assistant Name Role Phone Andrea Wu DO Primary Care Provider Unavaila Chrissy Bates Unavailable [phone] REASON FOR VISIT MD Encounters Encounter Location Date Provider Diagnosis [facility] Oncology [address] [place] [address] 11/26/2023 Chrissy Hector Plan Of Treatment Next Appt Details Provider Name:CHRISSY HECTOR , 01/26/2025 08:30:00 AM, [address] [place] [address], [phone], Progress Notes * Ivory CHESTEROB:[birth year] (74 yo F)Acc No.[id number]:11/26/2023 UNLOCKED PROGRESS NOTE Progress Notes Patient: Munira CHAIDEZ :?Chrissy Hector M.D.:1950???Age:73 Y ???Sex:FemaleDate:4Phone:[phone]:[address] [place] [address], [place], [id number]:Andrea Wu DO Subjective: * Chief Complaints: * 1 . MD. * Medical History: Objective: * Vitals: Assessment: Plan: * Treatment: * * Electronic signature of Chrissy Hector MD, [id number] on 01/19/2025 at 07:23 AM ESTSign off status: PendingVisit Status:?CONFSMS (Voice) * Provider: Racheal Hector M.D. Date: 0 11/26/2023 Generated for Printing/Faxing/eTransmitting on:?01/19/2025 07:23 AM EST
--- OUTSIDE RECORDS SUMMARY | 2024-02-18 03:00 | XMS_ITS ---
Author Organization [facility] [place] Address [address] [place] [address] Care Team Providers Care Field Clinical Engineer Name Role Phone Andrea Wu DO Primary Care Provider Unavaila Chrissy Bates Unavailable [phone] REASON FOR VISIT MD Encounters Encounter Location Date Provider Diagnosis [facility] Oncology [address] [place] [phone] 02/18/2024 Chrissy Hector Plan Of Treatment Next Appt Details Provider Name:CHRISSY HECTOR , 01/26/2025 08:30:00 AM, [address] [place] [address], [phone], Progress Notes * Ivory CHESTEROB:[birth year] (74 yo F)Acc No.[id number]:02/18/2024 UNLOCKED PROGRESS NOTE Progress Notes Patient: Munira CHAIDEZ :?Chrissy Hector M.D.:1950???Age:73 Y ???Sex:FemaleDate:4Phone:[phone]:[address] [place] [address], [place], [id number]:Andrea Wu DO Subjective: * Chief Complaints: * 1 . MD. * Medical History: Objective: * Vitals: Assessment: Plan: * Treatment: * * Electronic signature of Chrissy Hector MD, [id number] on 01/19/2025 at 07:23 AM ESTSign off status: PendingVisit Status:?CANC (Cancelled) * Provider: Racheal Hector M.D. Date: 04/20/2023 Generated for Printing/Faxing/eTransmitting on:?01/19/2025 07:23 AM EST
--- OUTSIDE RECORDS SUMMARY | 2024-02-25 03:15 | XMS_ITS ---
Author Organization [facility] in [place] Address [address] [place] [address] Care Team Providers Care Client Services Coordinator Name Role Phone Andrea Wu DO Primary Care Provider Unavaila Chrissy Bates Unavailable [phone] REASON FOR VISIT MD Encounters Encounter Location Date Provider Diagnosis [facility] [address] [place] [phone] 02/25/2024 Chrissy Hector Plan Of Treatment Next Appt Details Provider Name:CHRISSY HECTOR , 01/26/2025 08:30:00 AM, [address] [place] [address], [phone], Progress Notes * Ivory CHESTEROB:[birth year] (74 yo F)Acc No.[id number]:02/25/2024 UNLOCKED PROGRESS NOTE Progress Notes Patient: Munira CHAIDEZ :?Chrissy Hector M.D.:1950???Age:73 Y ???Sex:FemaleDate:4Phone:[phone]:[address] [place] [address], [place], [place]-[id number]:Andrea Wu DO Subjective: * Chief Complaints: * 1 . MD. * Medical History: Objective: * Vitals: Assessment: Plan: * Treatment: * * Electronic signature of Chrissy Hector MD, [id number] on 01/19/2025 at 07:24 AM ESTSign off status: PendingVisit Status:?CONFSMS (Voice) * Provider: Racheal Hector M.D. Date: 04/27/2023 Generated for Printing/Faxing/eTransmitting on:?01/19/2025 07:24 AM EST
--- OUTSIDE RECORDS SUMMARY | 2024-05-05 04:00 | XMS_ITS ---
Author Organization [facility] in [place] Address [address] [place] [address] Care Team Providers Care Telemedicine Physician Name Role Phone Andrea Wu DO Primary Care Provider Unavaila Chrissy Bates Unavailable [phone] REASON FOR VISIT MD Encounters Encounter Location Date Provider Diagnosis [facility] [address] [place] [phone] 05/05/2024 Chrissy Hector Plan Of Treatment Next Appt Details Provider Name:CHRISSY HECTOR , 01/26/2025 08:30:00 AM, [address] [place] [address], [phone], Progress Notes * Ivory CHESTEROB:[birth year] (74 yo F)Acc No.[id number]:05/05/2024 UNLOCKED PROGRESS NOTE Progress Notes Patient: Munira CHAIDEZ :?Chrissy Hcetor M.D.:1950???Age:73 Y ???Sex:FemaleDate:05/05/2024Phone:[phone]:[address] [place] [address], [place], [id number]:Andrea Wu DO Subjective: * Chief Complaints: * 1 . MD. * Medical History: Objective: * Vitals: Assessment: Plan: * Treatment: * * Electronic signature of Chrissy Hector MD, [id number] on 01/19/2025 at 07:23 AM ESTSign off status: PendingVisit Status:?CONFSMS (Voice) * Provider: Racheal Hector M.D. Date: 0 05/05/2024 Generated for Printing/Faxing/eTransmitting on:?01/19/2025 07:23 AM EST
--- OUTSIDE RECORDS SUMMARY | 2024-07-07 03:30 | XMS_ITS ---
Author Organization The [facility] in [place] Address [address] [place] [address] Care Team Providers Care Cigar Head Pegger Name Role Phone Andrea Wu DO Primary Care Provider Unavaila Chrissy Bates Unavailable [phone] REASON FOR VISIT MD Encounters Encounter Location Date Provider Diagnosis [facility] Oncology [address] [place] [address] 07/07/2024 Chrissy Hector Plan Of Treatment Next Appt Details Provider Name:CHRISSY HECTOR , 01/26/2025 08:30:00 AM, [address] [place] [address], [address], Progress Notes * Ivory CHESTEROB:[birth year] (74 yo F)Acc No.[id number]:07/07/2024 UNLOCKED PROGRESS NOTE Progress Notes Patient: Munira CHAIDEZ :?Chrissy Hector M.D.:1950???Age:73 Y ???Sex:FemaleDate:07/07/2024Phone:[phone]:[address] [place] [address], [place], [place]C-[id number]:Andrea Wu DO Subjective: * Chief Complaints: * 1 . MD. * Medical History: Objective: * Vitals: Assessment: Plan: * Treatment: * * Electronic signature of Chrissy Hector MD, [id number] on 01/19/2025 at 07:23 AM ESTSign off status: PendingVisit Status:?CANC (Cancelled) * Provider: Racheal Hector M.D. Date: 0 07/07/2024 Generated for Printing/Faxing/eTransmitting on:?01/19/2025 07:23 AM EST
--- OUTSIDE RECORDS SUMMARY | 2024-07-21 03:30 | XMS_ITS ---
Author Organization The [facility] in [place] Address [address] [place] [address] Care Team Providers Care Public Address Technician Name Role Phone Andrea Wu DO Primary Care Provider Unavaila Chrissy Bates Unavailable [phone] REASON FOR VISIT MD Encounters Encounter Location Date Provider Diagnosis [facility] Oncology [address] [place] [phone] 07/21/2024 Chrissy Hector Plan Of Treatment Next Appt Details Provider Name:CHRISSY HECTOR , 01/26/2025 08:30:00 AM, [address] [place] [address], [phone], Progress Notes * Ivory CHESTEROB:[birth year] (74 yo F)Acc No.[id number]:07/21/2024 UNLOCKED PROGRESS NOTE Progress Notes Patient: Munira CHAIDEZ :?Chrissy Hector M.D.:1950???Age:73 Y ???Sex:FemaleDate:07/21/2024Phone:[phone]:[address] [place] [address], [place], [place]-[address]Iry:Andrea Wu DO Subjective: * Chief Complaints: * 1 . MD. * Medical History: Objective: * Vitals: Assessment: Plan: * Treatment: * * Electronic signature of Chrissy Hector MD, [id number] on 01/19/2025 at 07:24 AM ESTSign off status: PendingVisit Status:?PEN (Pending) * Provider: Racheal Hector M.D. Date: 0 07/21/2024 Generated for Printing/Faxing/eTransmitting on:?01/19/2025 07:24 AM EST
--- OUTSIDE RECORDS SUMMARY | 2024-07-21 03:30 | XMS_ITS ---
Author Organization The [facility] in [place] Address [address] [place] [address] Care Team Providers Care Data Librarian Name Role Phone Andrea Wu DO Primary Care Provider Unavaila Chrissy Bates Unavailable [phone] REASON FOR VISIT MD Encounters Encounter Location Date Provider Diagnosis [facility] Oncology [address] [place] [address] 07/21/2024 Chrissy Hector Plan Of Treatment Next Appt Details Provider Name:CHRISSY HECTOR , 01/26/2025 08:30:00 AM, [address] [place] [address], [phone], Progress Notes * Ivory CHESTEROB:[birth year] (74 yo F)Acc No.[id number]:07/21/2024 UNLOCKED PROGRESS NOTE Progress Notes Patient: Munira CHAIDEZ :?Chrissy Hector M.D.:1950???Age:73 Y ???Sex:FemaleDate:07/21/2024Phone:[phone]:[address] [place] [address], [place], OHDV-[id number]:Andrea Wu DO Subjective: * Chief Complaints: * 1 . MD. * Medical History: Objective: * Vitals: Assessment: Plan: * Treatment: * * Electronic signature of Chrissy Hector MD, [id number] on 01/19/2025 at 07:23 AM ESTSign off status: PendingVisit Status:?CANC (Cancelled) * Provider: Racheal Hector M.D. Date: 0 07/21/2024 Generated for Printing/Faxing/eTransmitting on:?01/19/2025 07:23 AM EST
--- OUTSIDE RECORDS SUMMARY | 2025-01-19 07:23 | XMS_ITS | Patient Health Record ---
Author Organization [facility] [place] Address [address] [place] [address] Care Team Providers Care Video Clerk Name Role Phone Bryce Andrea BRUCE Primary Care Provider Unavaila Chrissy Bates Unavailable [phone] Allergies Allergen (clinical drug ingredient) Drug/Non Drug Allergy documented on EMR Reaction Allergy Type Onset Date Status amoxicillin Amoxicillin rash Drug Allergy ActiveBee StinganaphylaxisAllergyActiveIodineanaphylaxisDrug AllergyActive Substance with sulfonamide structure and antibacterial mechanism of action (substance)Sulfa AntibioticsrashDrug AllergyActive Results Component Value Reference Range Notes CBC AUTO DIFF (Not yet revie wed by provider) Interpretation: Performing Lab: Notes/Report: [facility] , White Blood Count 5.8 4.0-11.0 10 3/uL Red Blood Count4.224.20-5.40 10 6/vQLvbfnzcvmj34.112.0-16.0 g/wWBkbofjpdhw67.0 36.0-48.0 %Mean Corpuscular Ragwah21.481.0-99.0 fLMean Corpuscular Hemoglobin 31.026.7-34.0 pgMean Corpuscular HGB Conc33.629.9-35.2 g/dLRed Cell Distribution Width13.811.0-15.0 %Platelet Wddvr158054-832 10 3/uLMean Platelet Volume9.79.5- 13.5 fLNeutrophils Percent Auto57.043.0-75.0 %Lymphocytes Percent Auto26.420.5- 60.0 %Monocytes Percent Auto9.71.7-12.0 %Eosinophils Percent Auto5.90.9-7.0 % Basophils Percent Auto0.30.2-2.0 %Immature Granulocytes Pct Auto0.70.0-0.5 % Neutrophils Absolute Auto3.31.4-6.5 10 3/uLLymphocytes Absolute Auto1.51.2-3.8 10 3/uLMonocytes Absolute Auto0.60.3-0.8 10 3/uLEosinophils Absolute Auto0.30.0- 0.7 10 3/uLBasophils Absolute Auto0.00.0-0.1 10 3/uLImmature Granulocytes Abs Auto0.040.00-0.03 10 3/uLPerforming Lab:see noteML - [facility] LB IRON AND TIBC (Not yet reviewed by provider) Interpretation: Performing Lab: Notes/Report: [facility] ,Iron87.050.0-170.0 ug/dLTotal Iron Binding Uhbgsfqo302.0250.0-450.0 ug/dL Percent Iron Dttnitcrjq38.8Performing Lab:see noteML - [facility] LB PROF 14(COMP METB) (Not yet reviewed by provider) Interpretation: Performing Lab: Notes/Report: [facility] ,Rlgcau610579-771 mmol/LPotassium3.53.5-5.1 mmol/VPwflamvr90547-052 mmol/LCarbon Iavstoj44.221.0-32.0 mmol/LAnion Gap12.0Aeymtoq6872-783 mg/dLBlood Urea Nitrogen 16.07.0-18.0 mg/dLCreatinine1.000.55-1.02 mg/dLEstimated GFR ( Brittaney>60 >=60 mL/min/1.73m 2Estimated GFR (Non- Ame55>=60 mL/min/1.73m 2BUN Creatinine Ratio16.3Rayksns7.08.5-10.1 mg/dLBilirubin Total1.00.2-1.0 mg/dL Aspartate Amino Vhinugoahqf1442-08 U/LAlanine Poknbflyxpckgaam1314-21 U/L Alkaline Zrevvuwyavm8663-902 U/LTotal Protein6.66.4-8.2 g/dLAlbumin Level3.83.4- 5.0 g/dLGlobulin2.8Albumin Globulin Ratio1.4Performing Lab:see noteML - [facility] LBCBC AUTO DIFF (Not yet reviewed by provider) Interpretation: Performing Lab: Notes/Report: [facility] ,White Blood Count6.74.0-11.0 10 3/uLRed Blood Count4.094.20-5.40 10 6/uL Fmbytcpsbo26.912.0-16.0 g/vTApalcfvmuf21.036.0-48.0 %Mean Corpuscular Titccz25.9 81.0-99.0 fLMean Corpuscular Eauiviknqx71.526.7-34.0 pgMean Corpuscular HGB Conc 33.929.9-35.2 g/dLRed Cell Distribution Width14.711.0-15.0 %Platelet Tqtao696 150-450 10 3/uLMean Platelet Volume9.39.5-13.5 fLNeutrophils Percent Auto53.0 43.0-75.0 %Lymphocytes Percent Auto33.120.5-60.0 %Monocytes Percent Auto8.91.7- 12.0 %Eosinophils Percent Auto4.30.9-7.0 %Basophils Percent Auto0.40.2-2.0 % Immature Granulocytes Pct Auto0.30.0-0.5 %Neutrophils Absolute Auto3.61.4-6.5 10 3/uLLymphocytes Absolute Auto2.21.2-3.8 10 3/uLMonocytes Absolute Auto0.60.3-0.8 10 3/uLEosinophils Absolute Auto0.30.0-0.7 10 3/uLBasophils Absolute Auto0.00.0- 0.1 10 3/uLImmature Granulocytes Abs Auto0.020.00-0.03 10 3/uLPerforming Lab:see noteML - [facility] LBFERRITIN (Not yet reviewed by provider) Interpretation: Performing Lab: Notes/Report: [facility] ,Mylgazah010.08.0-252.0 ng/mLPerforming Lab:see noteML - [facility] LBVITAMIN D 25 [place] (Not yet reviewed by provider) Interpretation: Performing Lab: Notes/Report: [facility] ,Vitamin D36.3 <20 ng/mL Vit D deficient 20-<30 ng/mL Vit D insufficient 30-100 ng/mL Vit D sufficient >100 ng/mL Potential Toxicity Performing Lab:see note - [facility] LBVitamin B12 (Not yet reviewed by provider) Interpretation: Performing Lab: Notes/Report: [facility] ,Vitamin [id number] pg/mL Performed at: [address] [id number] Radiology Services Manager: Bj Hair PhD, Phone: [phone] Performing Lab:see [facility] LBVITAMIN D 25 [place] (Not yet reviewed by provider) Interpretation: Performing Lab: Notes/Report: [facility] ,Vitamin D36.4 <20 ng/mL Vit D deficient 20-<30 ng/mL Vit D insufficient 30-100 ng/mL Vit D sufficient >100 ng/mL Potential Toxicity Performing Lab:[facility] LBIRON AND TIBC (Not yet reviewed by provider) Interpretation: Performing Lab: Notes/Report: [facility] ,Iron51.050.0-170.0 ug/dLTotal Iron Binding Xnpdqatk227.0250.0-450.0 ug/dL Percent Iron Bflkgqcqly21.0Performing Lab:see note[facility] LB FERRITIN (Not yet reviewed by provider) Interpretation: Performing Lab: Notes/Report: [facility] ,Ovarulyc13.08.0-252.0 ng/mLPerforming Lab:see noteSouthern [facility] LB FERRITIN (Not yet reviewed by provider) Interpretation: Performing Lab: Notes/Report: [facility] ,Wagbfatb84.08.0-252.0 ng/mLPerforming Lab:see [facility] LB Vitamin B12 (Not yet reviewed by provider) Interpretation: Performing Lab: Notes/Report: [facility] ,Vitamin [id number] pg/mL Performed at: [address] [id number] Radiology Services Manager: Bj Hair PhD, Phone: [phone] Performing Lab:see noteLC - [facility] LBPROF 14(COMP METB) (Not yet reviewed by provider) Interpretation: Performing Lab: Notes/Report: [facility] ,Nkkvwb246777-772 mmol/LPotassium4.13.5-5.1 mmol/IXtbdgdxw84043-419 mmol/LCarbon Qnpaueo40.221.0-32.0 mmol/LAnion Gap11.2Dttxdgq1148-036 mg/dLBlood Urea Nitrogen 15.07.0-18.0 mg/dLCreatinine0.850.55-1.02 mg/dLEstimated GFR ( Brittaney>60 >=60 mL/min/1.73m 2Estimated GFR (Non- Ashley>60>=60 mL/min/1.73m 2BUN Creatinine Ratio17.9Vhitxfd5.08.5-10.1 mg/dLBilirubin Total0.50.2-1.0 mg/dL Aspartate Amino Hvioshaydjp3852-34 U/LAlanine Bcwnmrrbviazvxse2181-53 U/L Alkaline Zzsewmkbgsb6165-579 U/LTotal Protein7.06.4-8.2 g/dLAlbumin Level3.83.4- 5.0 g/dLGlobulin3.2Albumin Globulin Ratio1.2Performing Lab:see noteML - [facility] LBCBC AUTO DIFF (Not yet reviewed by provider) Interpretation: Performing Lab: Notes/Report: [facility] ,White Blood Count8.54.0-11.0 10 3/uLRed Blood Count4.354.20-5.40 10 6/uL Gpaqnhkvmw21.212.0-16.0 g/aXWamaamdsfs71.536.0-48.0 %Mean Corpuscular Ermjim72.1 81.0-99.0 fLMean Corpuscular Qldzmgkxzt18.326.7-34.0 pgMean Corpuscular HGB Conc 32.629.9-35.2 g/dLRed Cell Distribution Width13.511.0-15.0 %Platelet Twsqk564 150-450 10 3/uLMean Platelet Volume9.99.5-13.5 fLNeutrophils Percent Auto68.5 43.0-75.0 %Lymphocytes Percent Auto20.420.5-60.0 %Monocytes Percent Auto7.51.7- 12.0 %Eosinophils Percent Auto2.70.9-7.0 %Basophils Percent Auto0.40.2-2.0 % Immature Granulocytes Pct Auto0.50.0-0.5 %Neutrophils Absolute Auto5.81.4-6.5 10 3/uLLymphocytes Absolute Auto1.71.2-3.8 10 3/uLMonocytes Absolute Auto0.60.3-0.8 10 3/uLEosinophils Absolute Auto0.20.0-0.7 10 3/uLBasophils Absolute Auto0.00.0- 0.1 10 3/uLImmature Granulocytes Abs Auto0.040.00-0.03 10 3/uLPerforming Lab:see noteML - [facility] LBPROF CHEM 8 (BAS METB) (Not yet reviewed by provider) Interpretation: Performing Lab: Notes/Report: [facility] ,Fqkfbp768564-543 mmol/LPotassium3.43.5-5.1 mmol/WGfkxzivq62218-058 mmol/LCarbon Humaniy53.121.0-32.0 mmol/LAnion Gap15.8Gmdfwzs0372-466 mg/dLBlood Urea Nitrogen 16.07.0-18.0 mg/dLCreatinine0.950.55-1.02 mg/dLEstimated GFR ( Brittaney>60 >=60 mL/min/1.73m 2Estimated GFR (Non- Ame58>=60 mL/min/1.73m 2BUN Creatinine Ratio16.9Ujlhvms3.08.5-10.1 mg/dLPerforming Lab:see note - [facility] LBIRON AND TIBC (Not yet reviewed by provider) Interpretation: Performing Lab: Notes/Report: [facility] ,Ovbj814.050.0-170.0 ug/dLTotal Iron Binding Vqobklzs017.0250.0-450.0 ug/dL Percent Iron Mkumdisepz20.1Performing Lab:see note - [facility] LB Reason For Referral No Information Medications Medication SIG (Take, Route, Frequency, Duration) Notes Start Date End Date Status Atorvastatin Calcium 10 MG 1 tablet Orally Once a day; Duration: 30 days ActiveAspirin 81 MG1 tablet Orally Once a dayActiveLevothyroxine Sodium 100 MCG1 tablet in the morning on an empty stomach Orally Once a day; Duration: 30 day(s) ActiveAstepro 205.5 MCG/SPRAY2 sprays in each nostril Nasally Once a dayActive Montelukast Sodium 10 MG1 tablet Orally Once a day; Duration: 30 day(s)Active Albuterol Sulfate HFA 108 (90 Base) MCG/ACTInhalation; Duration: 90 DaysActive guaiFENesin-Codeine 100-10 MG/5MLtake 10 MILLILITERS (2 TEASPOONFULS) by mouth every 6 hours if needed for cough Oral; Duration: 7 DaysActiveamLODIPine Besylate 5 MGOral; Duration: 90 DaysActiveIFerex 150 150 MGTAKE 1 CAPSULE BY MOUTH EVERY OTHER DAY Oral; Duration: 30 DaysActiveFluticasone Propionate (Inhal) 50 MCG/ACT1 puff Inhalation Twice a dayActiveFosamax 70 MG1 tablet 30 minutes before the first food, beverage or medicine of the day with plain water Orally;Duration: 30 day(s)ActiveEpiPen 2-Giovani 0.3 MG/0.3MLas directed Injection ActiveFamotidine 20 MG1 tablet at bedtime as needed Orally Once a day; Duration: 30 day(s)ActiveClaritin-D 12 Hour 5-120 MG1 tablet as needed Orally every 12 hrs ActiveTrelegy Ellipta 100-62.5-25 MCG/ACTInhalation; Duration: 90 DaysActive Clobetasol Propionate 0.05 %1 application Externally Twice a day; Duration: 10 day(s)ActiveLORazepam 0.5 MGOral; Duration: 30 DaysUnknownPantoprazole Sodium 40 MG1 tablet Orally Once a day; Duration: 30 day(s)Active Immunizations Vaccine Route Administration Date Status Comme nts Arexvy Unknown 12/31/2022 Administered Flu, Fluad (13205) 65 yrs+, single-dose syringe (0451-0425)Wbxntdv9412/31/2022 AdministeredPneumococcal (Pneumovax 23)Evbuphy3001/05/2019AdministeredSpikevax Moderna Syringe Pre-Filled 50 mcg/0.5 hOHosstcr93/30/2023dministered Social History Tobacco Use: Social History Observation Description Date Details (start date - stop date) Never Smoker NA - NA Tobacco Use/Smoking Question Answer Notes Patient is a nonsmoker Section Notes: Never Smoked Never Smoked Never Smoked Never Smoked Never Smoked Never Smoked Never Smoked Problems Problem Type SNOMED Code ICD Code Onset Dates Problem Status W/U Status Risk Notes Problem Essential hypertension (73425365 ) Essential (primary) hypertension (I10) ActiveconfirmedProblemAge-related osteoporosis (044070442)Age-related osteoporosis without current pathological fracture (M81.0)ActiveconfirmedProblem Primary insomnia (8969330)Primary insomnia (F51.01)ActiveconfirmedProblemChronic tension-type headache (239135478)Chronic tension-type headache, not intractable (G44.229)ActiveconfirmedProblemUncomplicated mild persistent asthma (351774277) Mild persistent asthma, uncomplicated (J45.30)ActiveconfirmedProblemSeborrheic dermatitis (35332856)Seborrheic dermatitis, unspecified (L21.9)Activeconfirmed ProblemInstability of joint of right ankle (3635224585663862)Other instability, right ankle (M25.371)ActiveconfirmedProblemCervical spondylosis without myelopathy (513396095)Spondylosis without myelopathy or radiculopathy, cervical region (M47.812)ActiveconfirmedProblemLumbosacral spondylosis without myelopathy (22069154)Spondylosis without myelopathy or radiculopathy, lumbar region (M47.816)ActiveconfirmedProblemPrepatellar bursitis of left knee (182420909242291)Prepatellar bursitis, left knee (M70.42)ActiveconfirmedProblem Peroneal tendinitis (83277556)Peroneal tendinitis, right leg (M76.71)Active confirmedProblemStridor (21907974)Stridor (R06.1)ActiveconfirmedProblemContusion of left knee (06894979805120075)Contusion of left knee, initial encounter (S80.02XA)ActiveconfirmedProblemMetatarsal bone fracture (744594597)Displaced fracture of fifth metatarsal bone, right foot, subsequent encounter for fracture with routine healing (S92.351D)ActiveconfirmedProblemSprain of other ligament of right ankle, sequela (S93.491S)ActiveconfirmedProblemPresence of functional implant, unspecified (Z96.9)ActiveconfirmedProblemGastroesophageal reflux disease (344751480)GERD (gastroesophageal reflux disease) (K21.9)Activeconfirmed ProblemLung field abnormal (133213640)Abnormal CT scan of lung (R91.8)Active confirmedProblemPain in limb (80299594)Foot pain, right (M79.671)Activeconfirmed ProblemOverweight (605327618)Overweight (BMI 25.0-29.9) (E66.3)Activeconfirmed ProblemIncreased immunoglobulin (195932087)Elevated IgE level (R76.8)Active 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 lung disease (J84.10)ActiveconfirmedProblemChoking (285731869)Choking (T17.308A) ActiveconfirmedProblemStrain of left shoulder, initial encounter (S46.912A) ActiveconfirmedProblemChronic maxillary sinusitis (77997258)Chronic sinusitis of both maxillary sinuses (J32.0)ActiveconfirmedProblemAllergic rhinitis caused by pollen (12812797)Seasonal allergic rhinitis due to pollen (J30.1)Activeconfirmed ProblemAbnormal diffusion capacity determined by pulmonary function test (R94.2) ActiveconfirmedProblemPure hypercholesterolemia (823742238)Hyperlipidemia type II (E78.01)ActiveconfirmedProblemStrain of rhomboid muscle, initial encounter (S29.012A)ActiveconfirmedProblemOsteopenia of left hip (M85.852)Activeconfirmed ProblemAutoimmune hypothyroidism (218973790)Autoimmune hypothyroidism (E06.3) ActiveconfirmedProblemAt low risk for fall (443536584)At low risk for fall (Z91.81)ActiveconfirmedProblemAllergic reaction to bee sting (144028803)Bee sting allergy (Z91.030)ActiveconfirmedProblemDepression screening (436511465) Depression screen (Z13.31)ActiveconfirmedProblemGastroesophageal reflux disease with esophagitis (disorder) (707477118)Gastro-esophageal reflux disease with esophagitis, without bleeding (K21.00)ActiveconfirmedProblemHistory of gastric ulcer (716186678)History of gastric ulcer (Z87.11)ActiveconfirmedProblem 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)ActiveconfirmedProblemClosed fracture of metatarsal bone (04061745)Closed fracture of base of fifth metatarsal bone at metaphyseal-diaphyseal junction, unspecified laterality, initial encounter (S99.199A)ActiveconfirmedProblemMuscle strain of right knee, initial encounter (S86.911A)Activeconfirmed Encounters Encounter Location Date Provider Diagnosis [facility] [address] [place] [address] 02/25/2024 [facility] [address] [place] [address]/ [facility] [address] [place] [address]/[facility] Plan Of Treatment Pending Test Test Name [...] Vitamin B12 07/15/2024 Next Appt Details Provider Name:CHRISSY VILLA , 01/26/2025 08:30:00 AM, [address] [place], [address], Insurance Providers Payer Name Payer Address Payer Phone Subscriber Number Group Number Insured Name Patient Relationship to Insured Coverage Start Date Coverage End Date [place] [address] [place] [address] [id number] Henrik Cezarelf - patient is the [id number] [address] [place], [place] [id number], Haja - patient is the [id number] 2017 Medical (General) History Medical History History ICD [...] R94.2 Stridor R06.1 Surgical History Surgery Date(Month/Year) Right Foot Surgery Granado fracture ORIF 0 04/05/2022 EGD 09/23/2019 EGD 05/2011 EGD 08/2011 EGD 01/2015 Colonoscopy 09/23/2019 Colonoscopy 01/2010 Colonoscopy 01/2015 Lap Cholecystectomy 06/2010 RT Shoulder Arthroscopy 10/2018 ORIF right foot Granado Fracture 04/05/2022 section dilatation and curettageright wrist surgery
--- OUTSIDE RECORDS SUMMARY | 2025-01-19 07:23 | XMS_ITS | Encounter Summary ---
Author Organization [facility] Address [address] [place] [address] Care Team Providers Care It Systems Manager Name Role Phone Andrea Wu DO Primary Care Provider [phone] Encounter Details DateTypeDepartmentCare Team (Latest Contact Info)Owfkosoacfd83/07/2024Clinisync Result Encounter [facility] Unsolicited Jeanette Luther MD [address] [facility] [address] [place] [address] Social History Tobacco UseTypesPacks/DayYears UsedDateSmoking Tobacco: NeverSmokeless Tobacco: NeverAlcohol UseStandard Drinks/WeekCommentsNever0 (1 standard drink = 0.6 oz pure alcohol)Caffeine : sodaCommentsUnknownSex and Gender Information ValueDate RecordedSex Assigned at UmdsfLdwoli08/13/2023 7:05 PM EDTLegal Sex Aboety5205/30/2022 6:52 PM EDTGender SahsgbvdVypmbr66/13/2023 7:05 PM EDTSexual OrientationNot on filedocumented as of this encounter Plan of Treatment DateTypeDepartmentCare Team (Latest Contact Info)Pnlpwvdxazv12/18/2025 8:15 AM ESTOffice Visit [facility] [address] [place] [phone] Uriah Kiplatrick DO [address] [place] [address] 02/24/2025 10:50 AM ESTOffice Visit [facility] [address] [place] [address] Janae Crane MD [address] [place] [address] 04/29/2025 9:20 AM ESTOffice Visit [facility] [address] [place] [address] Ezio Vasquez MD [address] [place] [address] 05/11/2025 9:45 AM ESTOffice Visit [facility] [address] [place] [address] Madison Burns DO [address] [place] [address] documented as of this encounter Procedures Procedure NamePriorityDate/TimeAssociated DiagnosisCommentsCT MAXILLOFACIAL W/O QJDXIIVO72/07/2024 7:51 AM EDT documented in this encounter Results * CT MAXILLOFACIAL W/O CONTRAST (07/23/2023 7:51 AM EDT)Anatomical Region LateralityModalityOtherSpecimen (Source)Anatomical Location / Laterality Collection Method / VolumeCollection TimeReceived Time07/23/2023 7:51 AM EDT Narrative 07/25/2023 2:24 PM [...] Ordering Provider: Jeanette Luther FINAL REPORT Dictated: ??07/25/2023 2:21 pm ? Bravo Hurts DO Signed (Electronic Signature): ??07/25/2023 2:21 pm Signed by: ??Bravo Hurst DO Transcribed by: ??DP ? Technologist: ??SB Procedure Note Radiology, Radiologist, MD - 07/25/2023 [...] Hurst DO Transcribed by: SAHIL Technologist: KE Authorizing ProviderResult TypeResult StatusHilary Elie Luther MDCLINISYNC IMAGING Final Result documented in this encounter Visit Diagnoses Not on filedocumented in this encounter Care Teams Team MemberRelationshipSpecialtyStart DateEnd Date Andrea Wu DO PCP - GeneralInternal Medicine08/27/22documented as of this encounter
--- OUTSIDE RECORDS SUMMARY | 2025-01-19 07:23 | XMS_ITS | Clinical Summary ---
Author Organization [facility] Address [address] [place] [address] Care Team Providers Care Secretary Board Of Commissioners Name Role Phone Andrea Wu DO Primary Care Provider [phone] Allergies Active AllergyReactionsCriticalityNoted TowcFkszhbpgNqqvfatmurlPhbhafy78/30/2023 Iodinated Contrast MediaOther,Shortness of breath,ZjdgnolIrfe97/22/2008Iodine Ibetnrp6601/14/2023enicillin PIhviWcy35/30/2023Sulfa WupruivwnefAfnhngo38/22/2008 Wasp Venom10/21/2018 Other Reaction(s): Anaphylaxis Medications MedicationSigDispense QuantityRefillsLast FilledStart DateEnd DateStatus albuterol HFA 90 mcg/act inhaler Inhale 2 puffsActive Fosamax 70 MG tablet 1 tablet 30 minutes before the first food, beverage or medicine of the day with plain water Orally for 30 day(s)Active amLODIPine (Norvasc) 5 MG tablet Refills(s) ctive atorvastatin (Lipitor) 10 MG tablet 1 (one) time each day at the same timeActive RA Vitamin D-3 50 MCG (1999) capsule Take 50 mcg by mouth in the morning.05/18/2022ctive EpiPen 2-Giovani 0.3 MG/0.3ML injection syringe as directed InjectionActive estradiol (Estrace) 0.1 MG/GM vaginal cream See Instructions, 42.5 gm, Refill(s) 0, apply pea sized amount to urethra 2x/wk, [facility], cm, 02/20/23 8:48:00 EST, Height/Length Dosing, 68.5, kg, 12/06/23 8:48:00 EST, Weight Lyyilw1502/20/2023ctive famotidine (Pepcid) 20 MG tablet Take by mouth02/20/2023ctive levothyroxine (Synthroid, Levoxyl) 88 MCG tablet 1 (one) time each day at the same timeActive montelukast (Singulair) 10 MG tablet 1 (one) time each day at the same timeActive azelastine (Astelin) 0.1 % nasal spray Indications:Chronic rhinitisAdminister 2 sprays into each nostril in the morning and 2 sprays before bedtime. Use in each nostril as directed. 90 mL ctive doxycycline (Adoxa) 100 MG tablet Take 100 mg by mouth in the morning and 100 mg before bedtime. Take with a full glass of water and do not lie down for at least 30 minutes after.Active fluticasone (Flonase) 50 MCG/ACT nasal spray Indications:Chronic pansinusitisAdminister 2 sprays into each nostril Daily Shake gently. Before first use, prime pump. After use, clean tip and replace cap. 16 g ctive metoclopramide (Reglan) 10 MG tablet Take 10 mg by mouth in the morning and 10 mg at noon and 10 mg in the evening and 10 mg before bedtime.07/12/2023ctive budesonide (Pulmicort) 0.5 MG/2ML nebulizer solution Indications:Chronic maxillary sinusitisTake 2 mL (0.5 mg) by nebulization in the morning. Rinse mouth with water after use to reduce aftertaste and incidence of candidiasis. Do not swallow.. 60 mL ctive pantoprazole (ProtoNix) 40 MG EC tablet Indications:Gastroesophageal reflux disease without esophagitisTake 1 tablet (40 mg) by mouth in the morning and 1 tablet (40 mg) before bedtime. Do not crush, chew, or split.. 60 tablet ctive cetirizine (ZyrTEC) 10 MG tablet Indications:Chronic pansinusitisTake 1 tablet (10 mg) by mouth Daily as needed for allergies 90 tablet ctive Fluticasone Propionate (Xhance) 93 MCG/ACT Exhaler Suspension Indications:Chronic pansinusitisAdminister 1 spray into affected nostril(s) in the morning and 1 spray before bedtime. 48 mL ctive Active Problems ProblemNoted DateDiagnosed DateAbdominal /09/2024spiration into srltvu0507/25/2023Epigastric pain07/25/20239466Irdvngtvcznd79/09/2024Lichen sclerosus et /09/2024Mild persistent nlwsbs6707/25/2023Mixed incontinence 07/25/2023hronic ppsjxcnlfagk79/16/2024hronic cough07/02/2023llergic rhinitis due to wtvgjy1906/27/20235372Sczdgunbs60/11/3433Dbautw16/11/2024symptomatic microscopic xmsqumcpt26/11/2024utoimmune wdvjkpmeydrydl46/11/2024Graves' vbnerzk4206/27/2023hronic rjeajdjvdv45/11/2024hronic maxillary sinusitis 06/27/2023hronic tension jlqulkim70/11/2024Equinus contracture of right ankle 06/27/2023Fibrocystic breast gciybrc2506/27/2023Gastroesophageal reflux disease 06/27/2023History of colonic mrujnk0906/27/20237691Jmoflkxumujshy51/11/2024LPRD (laryngopharyngeal reflux disease)06/27/2023Migraine tnzxttwu60/11/2024 Kxwcolnstn02/11/2024eripheral ekwwfllecsrx81/11/2024haryngoesophageal hsafekdap99/11/2024Urethral zdkairkq40/11/8587Zjozlrp73/11/2024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[facility])06/27/2023Spondylosis of lumbar spine06/27/2023ulmonary function studies hzyprvxs53/11/2024ostinflammatory pulmonary tpoqwass51/11/2024 Keratoconjunctivitis sicca of both eyes not specified as Sjogren'01/14/2023 Blepharitis of upper and lower eyelids of both eyes01/14/2023ilateral posterior capsular pwqcnusejqptx02/30/8422Sryxopyuddns54/12/2023chilles tendinitis of right lower afxuwwrjr47/25/2017Benign essential qudxfxpejfxe58/01/2008Ulcerative xazeqny5503/18/2007 Resolved Problems ProblemNoted DateDiagnosed DateResolved DateHistory of gastric ulcer06/27/2023 06/27/2023Lung field zdxtqyov31ecurrent UTI06/27/2023 06/27/2023Episodic tension-type headache, not adazsntahzk76 Encounters DateTypeDepartmentCare MizdOjppqrcrghv83/13/2025 9:20 AM EDTOffice Visit [facility] [address] [place] [phone] Ezio Vasquez MD Peripheral eosinophilia (Primary Dx); Chronic maxillary sinusitis; Cough variant asthma (HCC)12/28/2024amboo flowsheet [facility] [address] [place] [phone] Ezio Vasquez MD 12/28/20249567Hhjwpo55/12/6641Cgbaew03/14/2025Telephone [facility] [address] [place] [phone] Jeanette Luther MD fzhddh5810/25/2024Refill [facility] [address] [place] [address] Jeanette Luther MD Chronic pansinusitisfrom Last 3 Months Family History Medical HistoryRelationNameCommentsDiabetesMotherHypertensionMotherLung cancer MotherPancreatic cancerMotherBreast cancerSister 1CancerSister 2Heart disease Sister 2MelanomaNeg PxFodmcxlqPnbmHfhkqlFquiyrqqFqtuweu1FkqwloSrhdkw 1Sister 2 SonAlive2 Social History Tobacco UseTypesPacks/DayYears UsedDateSmoking Tobacco: NeverSmokeless Tobacco: Never Tobacco Cessation:Counseling Given: Not Answered Alcohol UseStandard Drinks/WeekCommentsNever0 (1 standard drink = 0.6 oz pure alcohol)Caffeine : sodaCommentsUnknownSex and Gender InformationValue Date RecordedSex Assigned at ZoljhNhdunt79/13/2023 7:05 PM EDTLegal SexFemale 05/30/2022 6:52 PM EDTGender YqrcunwgJzjbbo09/13/2023 7:05 PM EDTSexual OrientationNot on file Last Filed Vital Signs Vital SignReadingTime TakenCommentsBlood Lfjqknqm868/760/ 10:59 AM EST Pulse--Temperature--Respiratory Rate--Oxygen Saturation--Inhaled Oxygen Concentration--Ehoqft12.6 kg (171 lb)12/28/2024 9:14 AM IXPFfzhob476.5 cm (5' 2 )04/30/2024 9:01 AM ESTBody Mass Index31.28004/30/2024 9:01 AM EST Plan of Treatment DateTypeDepartmentCare Team (Latest Contact Info)Eafvpdqwnmn61/18/2025 8:15 AM ESTOffice Visit [facility] [address] [place] [phone] Uriah Kilpatrick DO [address] [place] [address] 02/24/2025 10:50 AM ESTOffice Visit [facility] [address] [place] [address] Janae Crane MD [address] [place] [address] 04/29/2025 9:20 AM ESTOffice Visit [facility] [address] [place] [phone] Ezio Vasquez MD [address] [place] [address] 05/11/2025 9:45 AM ESTOffice Visit [facility] [address] [place] [phone] Madison Burns DO [address] [place] [address] Health MaintenanceDue DateLast DoneCommentsCT Erntnwzlvqwv37/11/1953FIT-DNA 1952FIT1952FOBT1952 6997Wvqcglyhcpqob61/11/1953DTaP/Tdap/Td Vaccines (1 - Tdap)07/27/1959COVID-19 Vaccine (5 - 2024- season)2024 07/04/2021, 01/23/2021, 06/02/2020, Additional history pghzjnCnckbntze74/18/2025 02/03/2024, 02/05/2023, 02/02/2022, Additional history existsColonoscopy , 09/07/2019, 01/16/2015, Additional history exists Colorectal Cancer Ipaeeysgp02/06/2034Pneumococcal Vaccine: 65+ YearsCompleted 01/05/2019, 01/10/2017, 01/04/2016Influenza UrvapyvClbsqgorm13/07/2025, 01/13/2024, 12/31/2022, Additional history existsHIB VaccinesAged OutNo longer eligible based on patient's age to complete this topicHPV VaccinesAged OutNo longer eligible based on patient's age to complete this topicHepatitis A VaccinesAged OutNo longer eligible based on patient's age to complete this topic Hepatitis B VaccinesAged OutNo longer eligible based on patient's age to complete this topicIPV VaccinesAged OutNo longer eligible based on patient's age to complete this topicMeningococcal B VaccineAged OutNo longer eligible based on patient's age to complete this topicMeningococcal VaccineAged OutNo longer eligible based on patient's age to complete this topicRotavirus VaccinesAged Out No longer eligible based on patient's age to complete this topic Procedures Procedure NamePriorityDate/TimeAssociated DiagnosisCommentsMAMMOGRAM, BILATERAL, SCREEN:*Kujklug6102/03/2024 12:39 PM ESTfrom Last 3 Months or Most Recently Relevant to Health Maintenance Results * MAMMOGRAM, BILATERAL, SCREEN:* (02/03/2024 12:39 PM EST)Anatomical Region LateralityModalityRadiographic Imaging Narrative Authorizing ProviderResult TypeResult StatusKatvivek Burns DOIMG XR PROCEDURESFinal Result from Last 3 Months or Most Recently Relevant to Health Maintenance Insurance * Guarantor: Onesimo Chester TypeRelation to PatientDate of PhoneBilling AddressPersonal/WsuuyyShja41/11/1951 [facility] [address] [place] [address] Care Teams Team MemberRelationshipSpecialtyStart DateEnd Date Andrea Wu DO PCP - GeneralInternal Medicine08/27/22
--- OUTSIDE RECORDS SUMMARY | 2025-01-19 07:23 | XMS_ITS | Clinical Summary ---
Author Organization [facility] Address [address] [place] [address] Care Team Providers Care Youth Manager Name Role Phone Unavailable Primary Care Provider Unavailabl e Social History Tobacco UseTypesPacks/DayYears UsedDateSmoking Tobacco: Never AssessedUT Safety & EnvironmentAnswerDate RecordedFear of Current or Ex-PartnerNot on file 08/26/2023Emotionally AbusedNot on file08/26/2023hysically AbusedNot on file 08/26/2023Sexually AbusedNot on file08/26/2023hysically or Sexually AbusedNot on file08/26/2023CommentsUnknownSex and Gender InformationValueDate RecordedSex Assigned at BirthNot on fileLegal RamQigsnq25/10/2024 5:33 PM EDT Gender IdentityNot on fileSexual OrientationNot on file Plan of Treatment Not on file
--- OUTSIDE RECORDS SUMMARY | 2025-01-19 07:24 | XMS_ITS | Clinical Summary ---
Author Organization [facility] Address [address] [place], [place] [id number] Care Team Providers Care Telegraph Repeater Mechanic Name Role Phone Moustapha Haley MD Unavailable Chrissy Hector MD Unavailable [phone] Andrea Wu DO Primary Care Provider [phone] Allergies Active AllergyReactionsCriticalityNoted DateCommentsAmoxicillinOther: See Uslccsiv50/11/2024Contrast Dye12/08/2007Sulfa (Sulfonamide Antibiotics) 12/08/2007 Medications MedicationSigDispense QuantityRefillsLast FilledStart DateEnd DateStatus levothyroxine sodium(SYNTHROID 100 MCG TAB) Take one(1) tablet daily.ctive fluticasone-vilanterol (BREO ELLIPTA) 100-25 mcg/dose inhaler Inhale 1 Inhalation as instructed once daily.Active EPINEPHrine (EPIPEN) 0.3 mg/0.3 mL auto-injector Inject 0.3 mg intramuscularly as needed.Active fluticasone (FLONASE) 50 mcg/actuation nasal spray Use 1 [employer] in each nostril once daily.Active atorvastatin (LIPITOR) 10 mg tablet Take 10 mg by mouth once daily.Active albuterol HFA (PROAIR HFA) 90 mcg/actuation inhaler Inhale 2 Puffs as instructed.Active montelukast (SINGULAIR) 10 mg tablet Take 10 mg by mouth daily at bedtime.Active alendronate (FOSAMAX) 70 mg tablet Take 70 mg by mouth once each week.Active metroNIDAZOLE (METROGEL) 0.75 % Vaginal Gel Use 1 Applicatorful vaginally daily at bedtime.Active Estradiol (VAGIFEM) 10 mcg tab vaginal tablet Use 10 mcg vaginally once daily.Active orphenadrine ER (NORFLEX) 100 mg tablet Two tablets daily as needed 40 tablet Active amLODIPine (NORVASC) 5 mg tablet Take by mouth once daily.Active Cetirizine 10 mg cap Take by mouth.Active famotidine (PEPCID) 20 mg tablet Take 20 mg by mouth two times a day.Active iron polysaccharide complex (FERREX 150 ORAL) Take by mouth every other day.Active codeine phosphate/guaifenesin (CODEINE-GUAIFENESIN ORAL) Take by mouth.Active pantoprazole DR (PROTONIX) 40 mg tablet Take 40 mg by mouth two times a day.Active fluticasone propionate (XHANCE) 93 mcg/actuation nasal spray Use in each nostril two times a day.Active nitrofurantoin macrocrystal (MACRODANTIN) 100 mg capsule 100 mg by ORAL/FEEDING TUBE route.Active betamethasone valerate 0.1 % cream Apply to affected area.Active cholecalciferol, vitamin D3, (D3-2000 ORAL) Take by mouth.Active calcium carbonate/vitamin D3 (CALCIUM + D ORAL) Take by mouth.Active iron bis-glycinat/vit C/FA/B12 (GENTLE IRON ORAL) Take by mouth.Active mv-min/iron/folic/calcium/vitK (WOMEN'S MULTIVITAMIN ORAL) Take by mouth.Active vit A/vit C/biotin/zinc/copper (OEPQ-YPCL-XJCG,VIT A,C-BIOTIN, ORAL) Take by mouth.Active aspirin 325 mg cap Take by mouth.Active Ibuprofen 200 mg cap Take by mouth every 6 hours as needed.Active acetaminophen (TYLENOL) 325 mg tablet Take 650 mg by mouth every 6 hours as needed.Active peg 3350-Electrolytes (GOLYTELY) 236-22.74-6.74 -5.86 gram suspension Indications:Iron deficiency anemia due to chronic blood lossAdd water to powder in the jug up to the fill line. Starting at 6pm the evening before the colonsoco py, drink 8 oz every 15 minutes until half to three quarters of the jug is consumed AND returns areclear. Take a break. Finish the remainder of the jug 4 hours before your procedure. 1 Each 4Active nutritional supplement (RADHA, WITH COLLAGEN,) 7-7-1.5 gram pwpk Indications:Nonsteroidal anti-inflammatory drug (NSAID) induced enteropathyTake 1 package by mouth two times a day. 60 packet 5Active Active Problems ProblemNoted DateDiagnosed DateAchilles tendinitis of right lower extremity 04/11/2016Episodic tension-type headache, not wcivjsasjfm73/21/2016 Immunizations ImmunizationAdministration DatesNext Dueinfluenza (HD-IIV4) vaccine, age 65+ yr, high dose, quadrivalent, PF (FLUZONE HIGH-DOSE)12/18/2021influenza (IIV3) vaccine, trivalent, PF (AFLURIA, FLUARIX, FLULAVAL, FLUVIRIN, FLUZONE)01/04/2016 influenza (IIV4) vaccine, age 6 mo - 64 yr, quadrivalent, PF (AFLURIA, FLUARIX, FLULAVAL, FLUZONE)12/07/2019,01/10/2017influenza (aIIV3) vaccine, age 65+ yr, trivalent, PF (FLUAD)12/19/2017influenza (aIIV4) vaccine, age 65+ yr, quadrivalent, PF (FLUAD QUAD)12/31/2022,11/23/2020influenza (ccIIV4) vaccine, age 6+ mo, quadrivalent, PF (FLUCELVAX)01/05/2019influenza vaccine, unspecified nkesbuvbxjk11/02/2019pneumococcal conjugate (PCV13) vaccine, 13 valent (PREVNAR 13)01/10/2017pneumococcal polysaccharide (PPV23) vaccine, 23 valent (PNEUMOVAX 23)01/05/2019,01/04/2016respiratory syncytial virus (RSV) vaccine, adjuvanted (AREXVY)12/31/2022 Family History Medical HistoryRelationCommentsCancerFatherArthritisMaternal GrandmotherRACancer MotherRelationStatusCommentsFatherMaternal GrandmotherMother Social History Tobacco UseTypesPacks/DayYears UsedDateSmoking Tobacco: NeverSmokeless Tobacco: NeverAlcohol UseStandard Drinks/WeekCommentsNo0 (1 standard drink = 0.6 oz pure alcohol)Area Deprivation IndexAnswerDate RecordedNational Score (1-100), lower number is lower hafq411612/27/2023State Score (1-10), lower number is lower risk4 4Data from: https://www.neighborhoodatlas.medicine.[facility].edu/. Last address used [address] [place] [address]CommentsNoSex and Gender InformationValueDate RecordedSex Assigned at BirthNot on fileLegal FihAirfpf64/02/2012 8:12 AM ESTGender IdentityNot on fileSexual OrientationNot on fileOccupationIndustryJob Start DateJob End DateHR managerNot on fileNot on fileNot on file Last Filed Vital Signs Vital SignReadingTime TakenCommentsBlood Svsajixh619/8404 3:50 PM EDT Cuffi511207/13/2024 3:50 PM DWSZfpcvghiehi29.5 ??C (97.7 ??F)07/13/2024 3:20 PM EDTRespiratory Hnfl165907/13/2024 3:20 PM EDTOxygen Cjirpzsfsa84%07/13/2024 3:50 PM EDTInhaled Oxygen Concentration--Ouzwdx28.8 kg (165 lb)07/13/2024 12:52 PM KUYEmeurx584 cm (5' 3 )07/13/2024 12:52 PM EDTBody Mass Index29.23007/13/2024 12:52 PM EDT Plan of Treatment Health MaintenanceDue DateLast DoneCommentsAnxiety Qdetghxbd92/11/1971Depression Vtqnflugs06/11/1971Hepatitis C Akcflhjet30/11/1971DTaP,Tdap,Td Vaccine (1 - Tdap)07/27/1971CT Onwgslfewfoi05/11/1998Cologuard (FIT-DNA)1997Colonoscopy 1997Colorectal Cancer Iffomtday16/11/1998Diabetes Kdalyubks00/11/1998Fecal Occult Blood1997Lipid Qxwhtsdwj23/11/6137Crgxwiejwnvpx80/11/1998Shingrix Vaccine (1 of 2)2002Medicare Annual Wellness Visit07/16/2017Mammogram Qrsjpofvu90, 02/02/2022, 01/25/2021, Additional history exists Advance Directive Jcqmykkqet21/01/2025Covid-19 Vaccine ( season) , 02/14/2023, 12/22/2021, Additional history existsInfluenza Vaccine (#1), 12/31/2022, 12/18/2021, Additional history existsPneumococcal Vaccine: 50+Iwzzjerpx82/21/2019, 01/10/2017, 01/04/2016Bone Density LqfaintgtDbvcksquz91/28/2021, 12/30/2018RSV WmedymrVnevifoch34/16/2023 Medical Devices ImplantedTypeAreaManufacturerDevice IdentifierShelf Expiration DateModel / Serial / LotPinPinRight: Bone - ShoulderScrewScrewRight: Bone - Shoulder Insurance Care Teams Team MemberRelationshipSpecialtyStart DateEnd Andrea Wu DO [address] [place] [address] PCP - GeneralInternal Oevzbeqa18/11/24 Moustapha Haley MD [address] [place] [address] [address] [place] [address] Internal Hcvngwvs32/11/24 Chrissy Hector MD [address] [id number] Hematology/Loyadezl09/11/24
--- OUTSIDE RECORDS SUMMARY | 2025-01-19 07:24 | XMS_ITS | CCD ---
Author Organization [facility] Care Team Providers Care Emergency Planning And Response Manager Name Role Phone Espinoza Ruiz Unavailable ANDREA GOLDEN Primary Care Physician [phone] Andrea Golden Unavailable Luma Chirinos Unavailable PABLO, DR CAMPOS Nixon Consulting Unavailable CHICO, DR WILKES Primary Care Unavailable TERESA CROWELL Attending Unavailable TERESA CROWELL Admitting Unavailable TERESA CROWELL Consulting Unavailable JESÚS, DR JEROME Winkler Consulting Unavailable HAY ., DR MONZON Attending Unavailable HAY ., DR OMNZON Admitting Unavailable BALL, DR WILKES Primary Care [...] MAHER Referring Unavailable Unavailable Primary Care Provider [facility] LUMA Mccain Attending Unavailable DARLINE PEREIRA W Referring Unavailable Tera VILLEGAS, Jones Talthang Unavailable [phone] Krunal VILLEGAS, Chrissy Unavailable Andrea Golden DO [...] Golden DO Primary Care Provider Lue, Asuncion M. Referring Unavailable Lue, Asuncion M. Attending Unavailable Lue, Asuncion MJose Admitting Unavailable Del Nettles Attending Unavailable Del Nettles Attending Unavailable Asuncion Buchanan Attending Unavailable Andrea Golden DO Primary Care Provider Abe Mojica DO Attending Provider [phone] Andrea Golden DO Attending Provider [phone] MADISON BURNS Attending Unavailable CHARITO VASQUEZ Attending Unavailable RAMINES CHARITO Bharati Attending Unavailable MARSHA LAL Attending Unavailable CHARITO VASQUEZ Attending Unavailable Allergies Allergy ClassificationReported Allergen(s)Allergy TypeDate of OnsetReaction(s) Facility (20 sources)Amoxicillin; Translations: [AMOXICILLIN]Drug Zgnrzjz49-67-0681Bcah, Unknown, Other: See CommentsC[facility]innati [facility] (20 sources)Sulfacetamide / SulfurDrug AllergyUnknowACE Other (20 sources)idp dyePropensity to adverse oqoxhofed67-84-8879Cpsgdra, Unknown ReactionCincinnati Va Medical Center (20 sources)Sulfonamides (Antibiotic); Translations: [SULFA (SULFONAMIDE ANTIBIOTICS)]Allergy to vixywjgbw77-97-4336Yzvi, UnknownCincinnati Va Medical Center (20 sources)wasp venom; Translations: [WASP VENOM]Allergy to -94-1174 AnaphylaxisCincinnati Va Medical Center (10 sources)bee venom protein (honey bee); Translations: [BEE VENOM PROTEIN (HONEY BEE)]Allergy to qytahbufr20-12-7444TeiazbjrzjnShivuolsg [facility] (20 sources)Iodinated Contrast Media; Translations: [IODINATED CONTRAST MEDIA] Allergy to ukxtmvewj06-85-2535Dagva, Shortness of breath, Unknown, Anaphylaxis, HivesCincinnati Va Medical Center (20 sources)Bee/Wasp/Ant venom; Translations: [Bee Stings]Drug allergyDyspnea (finding), Weal (disorder)[facility] (20 sources)Contrast media; Translations: [contrast media (iodine-based)]Drug amtyiwo90-48-5944Uvnvxjo (finding), Weal (disorder)[facility] (20 sources)Iodine; Translations: [iodine]Drug Heqbkbz01-76-5620Dowzktp (qualifier value), Unknown, AnaphylaxisGeneral Surgery [facility] (20 sources)Penicillin; Translations: [penicillin]Drug Feqfvfd76-18-8975Mrbwvqmj of skin (disorder), RashGeneral Surgery [facility] (20 sources)Sulfonamides (Antibiotic); Translations: [sulfa drugs]Drug allergy Angioedema (disorder)[facility] (1 source)bee venomDrug allergy (disorder)[facility] Rep[facility] (1 source)Iodine (And Iodine Containting Drugs)Drug allergy (disorder)01-18-2015 [facility] Repository (6 sources)PenicillinsDrug allergy (disorder)27-96-7265Mfxqhhi ReactionThe [facility] (1 source)Sulfonamides (Antibiotic)Drug allergy (disorder)82-88-6267Ttq [facility] Rep[facility] (2 sources)Iodine / Sodium IodideDrug AllergyIntelliChemSpiffy SocietySullivan County Memorial Hospital [employer] Other (18 sources)Substance with penicillin structure and antibacterial mechanism of action (substance)Drug allergyUnkMemorial Hospital of [facility] [employer] Other (20 sources)Substance with sulfonamide structure and antibacterial mechanism of action (substance)Drug zwrdxah13-01-0548RdtpszpHgaza [employer] Other (2 sources)Allergies ReconciledPropensity to adverse reactionsUnknowSullivan County Memorial Hospital [employer] Other (2 sources)patient allergy list reviewed by nurse or physiciaPropensity to adverse eswbxuvcg61-53-4603Qnxbdeg:[facility] [employer] Other (16 sources)Penicillin GDrug Qvxewaz81-33-4733BgtsQMCP Healthcare (5 sources)SulfacetamideDrug Yabzcjd46-38-1361Mdvuegq ReactionCincinnati Va Medical Center (5 sources)SulfurDrug Hrbcdak81-20-1404Bhwphvw ReactionCincinnati Va Medical Center (4 sources)SULFACETAMIDE YVQ-NEHTAC-WYMY; Translations: [SULFACETAMIDE QRP-DCKQCD-ADXZ]Propensity to adverse reactions to drug (disorder)09-14-2023 [place] [address] Repository (1 source)Contrast media; Translations: [CONTRAST DYE]Propensity to adverse reactions to drug (disorder)70-68-3188ByawbvnwuFisher-Titus Medical Center Rep[facility] Medications Current Medications MedicationDrug Class(es)DatesSig (Normalized)Sig (Original)0.4 ML cyclosporine 0.5 MG/ML Ophthalmic Suspension [Restasis] (1 source)Start: 16-04-9497ivku 1 drop(s) into the eye(s) twice dailyRestasis 0.05% ophthalmic emulsion 1 drop(s), Eye-Both, BID, Refill(s) 0 Start Date: 09/04/19 Status: [id number] ACTUAT fluticasone furoate 0.2 MG/ACTUAT / umeclidinium 0.0625 MG/ACTUAT / vilanterol 0.025 MG/ACTUAT Dry Powder Inhaler [Trelegy] (1 source)Start: 78-56-8242kerc 1 puff(s) by inhalation once dailyTrelegy Ellipta 200-62.5-25 MCG/ACT 1 puff Inhalation Once a day for 30 days Feb, Activeacetaminophen 325 mg oral tablet (7 sources)take 2 tablets by mouth every six hours as neededacetaminophen (TYLENOL) 325 mg tablet Take 650 mg by mouth every 6 hours as needed. Active [id number] 200 actuat albuterol 0.09 mg/actuat metered dose inhaler (20 sources)beta2-Adrenergic AgonistStart: 45-44-2601Forzwnuje Sulfate 90 mcg/actuation HFA aerosol inhaler Active 0 .ROUTE .COMPLEX 25.5 June 01, 2024 8:50am USE 2 INHALATIONS ORALLY EVERY 4 HOURS NEEDED FOR COUGH OR SHORTNESS OF BREATH Complieswith drug therapyStart: 53-64-1016iyvx 2 puff(s) by inhalation every four hoursProAir HFA 90 mcg/inh inhalation aerosol 2 puff(s), Inhalation, q4hr Shortness of breath or wheezing, Refill(s) 0 Start Date: 09/02/19 Status: OrderedStart: 10-21-2018 End: 05-16-9718Qcgxdlicw Sulfate 90 mcg/actuation HFA aerosol inhaler Discontinued 2 PUFF INHALATION As Directed as needed for Shortness Of Breath Or Wheezing October 21, 2018 12:00am June 01, 2024 8:50amalbuterol HFA 90 mcg/act inhaler Inhale 2 puffs Activealbuterol HFA (PROAIR HFA) 90 mcg/actuation inhaler Inhale 2 Puffs as instructed. ActiveAlbuterol Sulfate HFA 108 (90 Base) MCG/ACT USE 2 INHALATIONS ORALLY EVERY 4 HOURS NEEDED FORCOUGH OR SHORTNESS OF BREATH for 90 Activetake 2 puff(s) by inhalation every four hours as needed ProAir HFA 108 (90 Base) MCG/ACT 2 puffs as needed Inhalation every 4 hrs Active alendronic acid 70 mg oral tablet (20 sources)BisphosphonateStart: 11-82-7432bbuu 1 tablet by mouth every week Alendronate 70 mg tablet Active 70 MG PO every week 12 December 09, 2024 7:19am Complies withdrug therapyStart: 01-09-2024 End: 57-32-1553Mmpupjvzknp 70 mg tablet Discontinued 0 .ROUTE .COMPLEX January 09, 2024 12:33pm December 09, 2024 7:20am TAKE 1 TABLET ONCE WEEKLY 30 MINUTES BEFORE THE FIRST FOOD, BEVERAGE OR MEDICINE OF THE DAY WITH PLAIN WATERStart: 10-21-2018 End: 94-78-9410ejre 1 tablet by mouth every weekAlendronate 70 mg tablet Discontinued 70 MG PO every week October 21, 2018 12:00am January 09, 2024 12:33pmtake 1 tablet by mouth once dailyFosamax 70 MG tablet 1 tablet 30 minutes before the first food, beverage or medicine of the day with plain water Orally for 30 day(s) ActiveamLODIPine 5 mg oral tablet (20 sources)Dihydropyridine Calcium Channel BlockerStart: 42-65-9843Unyegxbqfm 5 mg tablet Active 0 .ROUTE .COMPLEX April 27, 2024 10:06am TAKE 1 TABLET DAILY Complies with drug therapyStart: 02-20-2023 End: 10-60-6095lkRBVXVzme (Norvasc) 5 MG tablet Refills(s) 0 02/20/2023 Active aspirin 325 mg oral tablet (8 sources)Platelet Aggregation Inhibitor, Nonsteroidal Anti-inflammatory Drug aspirin 325 mg cap Take by mouth. Activeaspirin 81 mg EC tablet once every 24 hours. Activeaspirin 770 mg / caffeine 60 mg / orphenadrine citrate 50 mg oral tablet (6 sources)Platelet Aggregation Inhibitor, Nonsteroidal Anti-inflammatory Drug, Muscle Relaxant, Central Nervous System Stimulant, MethylxanthineStart: 68-15-6697qyvw 0.5 tablet by mouth four times daily as needed for headache Hjxzngymrgec-Xhj-Rltxbeyn 50-770-60 mg Tablet Active 0.5 TAB PO Four times daily as needed for Headache October 21, 2018 12:00am Complies with drug therapy Astepro 205.5 MCG/SPRAY (1 source)Start: 53-11-6407qewl 2 spray(s) nasal route twice dailyAstepro 205.5 MCG/SPRAY 2 sprays in each nostril Nasally bid for 30 days Feb, Active atorvastatin 10 mg oral tablet (20 sources)HMG-CoA Reductase InhibitorStart: 22-49-7532Jqymbrbgkwng 10 mg tablet Active 0 .ROUTE .COMPLEX January 27, 2024 2:00pm TAKE 1 TABLET EVERY EVENING Complies with drug therapyStart: 10-21-2018 End: 06-83-4636asmi 1 tablet by mouth once dailyAtorvastatin 10 mg tablet Discontinued 10 MG PO Daily October 21, 2018 12:00am January 27, 2024 2:00pm azelastine hydrochloride 0.137 mg/actuat metered dose nasal spray (20 sources)Histamine-1 Receptor AntagonistStart: 05-16-2023 End: 09-52-8477mfpq 2 spray(s) nasal route in the morningazelastine (Astelin) 0.1 % nasal spray Indications: Chronic rhinitis Administer 2 sprays into each n ostril in the morning and 2 sprays before bedtime. Use in each nostril as directed. 90 mL 3 05/16/2023 ActiveStart: 84-00-6461qzbl 2 spray(s) nasal route twice dailyAstepro 205.5 MCG/SPRAY 2 sprays in each nostril Nasally bid Feb, Activeazithromycin 500 mg oral tablet (20 sources)Macrolide AntimicrobialStart: 38-63-2523iwhg 1 tablet by mouth once dailyAzithromycin 500 mg tablet Active 500 MG PO Daily 3 October 13, 2024 12:00am Complies with drug therapyStart: 26-17-0287Ibggkrrhftmn 250 MG as directed Orally daily for 5 days Nov, Not-Taking/PRNStart: 11-01-2022 Azithromycin 250 MG 2 tablet on the first day, then 1 tablet daily for 4 days Orally Once a day for5 day(s) Oct, Not-Taking/PRNbetamethasone 0.001 mg/mg topical ointment (20 sources)CorticosteroidStart: 01-31-2024 End: 97-93-3606sdqrluquoarbw valerate (Valisone) 0.1 % ointment Indications: Lichen sclerosus et atrophicus APPLY TO THE AFFECTED AREA EXTERNALLY TWO TIMES A DAY, REPLACES PREVIOUS SENT SCRIPT 60 g 11 01/31/2024 04/16/2024 Discontinued (Ineffective)Start: 09-17-2023 End: 97-32-9065fczlsfrsuubso valerate (Valisone) 0.1 % cream Indications: Lichen sclerosus et atrophicus APPLY TO THE AFFECTED AREA TWICE A DAY 60 g 2 12/31/2023 04/16/2024 Discontinued (Ineffective)Start: 63-54-5892ougnevytdmfzu valerate (Valisone) 0.1 % ointment 09/09/2023 ActiveStart: 03-13-2023 betamethasone valerate (Valisone) 0.1 % cream Indications: Lichen sclerosus et atrophicus Apply to affected area twice daily, Replace previous sent script 60 g 3 03/13/2023 ActiveStart: 04-18-9890Hvjyjwsfwarxa Valerate 0.1 % Cream Active 1 APPLIC TOPICAL As Directed October 21, 2018 12:00am Complies with drug therapy Start: 09-65-1821Casdsvbdixvvr Valerate Active 1 APPLIC TOPICAL As Directed October 21, 2018 12:00amBetamethasone Not-Taking/PRNBetamethasone Not-Taking Betamethasone ActiveBreo Ellipta 200 mcg-25 mcg/inh inhalation powder (9 sources)Start: 46-00-9779Wvbp Ellipta 200 mcg-25 mcg/inh inhalation powder 1 inh, Inhalation, Daily, Refill(s) 0 Start Date:02/05/24 Status: Ordered Repeat number: 1Start: 91-97-7446Mkak Ellipta 200 mcg-25 mcg/inh inhalation powder 1 inh, Inhalation, Daily, Refill(s) 0 Start Date:02/05/24 Status: OrderedStart: 52-41-3741Mgxc Ellipta 200 mcg-25 mcg/inh inhalation powder 1 inh, Refill(s) 0 Start Date: 02/05/24 Status: OrderedStart: 29-47-6932vhqw 1 puff(s) by inhalation once dailyBreo Ellipta 200 mcg-25 mcg/inh inhalation powder 1 puff(s), Inhalation, Daily, Refill(s) 0 Start Date: 09/02/19 Status: Ordered budesonide 0.25 mg/ml inhalation suspension (14 sources)CorticosteroidStart: 08-20-2023 End: 02-61-1318rvfn 2 mL by mouth in the morningbudesonide (Pulmicort) 0.5 MG/2ML nebulizer solution Indications: Chronic maxillary sinusitis Take 2 mL (0.5 mg) by nebulization in the morning. Rinse mouth with water after use to reduce aftertaste and incidence of candidiasis. Do not swallow.. 60 mL 11 08/20/2023 Activecalcium carbonate 600 mg chewable tablet (13 sources)Start: 21-79-7433zpjp 1 tablet by mouth three times dailycalcium carbonate 600 mg oral tablet, chewable 600 mg = 1 tab(s), Chewed, TID, Refills(s) 0 Start Date: 09/04/19 Status: OrderedStart: 10-21-2018 End: 49-03-6035Rxhgaaz Carbonate (Tums) 300 mg (750 mg) Tablet,Chewable Discontinued 2 TAB PO As Directed as needed for GERD October 21, 2018 12:00am February 05, 2024 9:43amStart: 10-21-2018 End: 81-50-7871aith 1 tablet by mouth three times dailyCalcium Carbonate (Calcium 500) 500 mg calcium (1,250 mg) Tablet,Chewable Discontinued 500 MG PO Three times daily October 21, 2018 12:00am February 05, 2024 9:43amCalcium Carbonate / vitamin D3 (7 sources)calcium carbonate/vitamin D3 (CALCIUM + D ORAL) Take by mouth. Active Calcium with Vitamin D and Minerals oral tablet (6 sources)Start: 11-57-6172tgnc 1 tablet by mouth twice dailyCalcium with Vitamin D and Minerals oral tablet tab(s), Oral, BID, Refill(s) 0 Start Date: 02/05/24Status: Orderedcelecoxib 200 mg oral capsule (1 source)Nonsteroidal Anti-inflammatory DrugStart: 70-60-7288cpqb 1 capsule by mouth once dailyCelecoxib (Celebrex) 200 mg capsule Active 200 MG PO Daily December 22, 2024 12:00am Complieswith drug therapycephalexin 500 mg oral capsule (1 source)Cephalosporin AntibacterialStart: 02-05-2024 End: 37-49-1198tzsz 1 capsule by mouth every twelve hoursKeflex 500 mg Cap 500 mg = 1 cap(s), Oral, q12hr, Start the morning of procedure, X 1 day(s), # 2 ca p(s), Refills(s) 0, Pharmacy: [facility], 158, cm, 02/05/24 11:08:00 EST, Height/Length Dosing, 62, kg, 02/05/24 11:08:00 EST, Weight Dosing Start Date: 02/05/24 Stop Date: 02/06/24 Status: Orderedcetirizine hydrochloride 10 mg oral tablet (20 sources)Histamine-1 Receptor AntagonistStart: 10-18-2023 End: 83-21-0335pspl 1 tablet by mouth once daily as neededcetirizine (ZyrTEC) 10 MG tablet Indications: Chronic pansinusitis Take 1 tablet (10 mg) by mouth Da eduardo as needed for allergies 90 tablet 3 10/18/2023 ActiveStart: 77-54-7560Fneshn Oral, Daily, Refills(s) 0, Allergy symptoms Start Date: 08/15/23 Status: Ordered Repeat number: 1Start: 66-87-6218Jmupgx Oral, Daily, Refills(s) 0, Allergy symptoms Start Date: 08/15/23 Status: OrderedStart: 18-09-8016Qvxyzx Daily, Refills(s) 0 Start Date: 08/15/23 Status: OrderedCetirizine 10 mg cap Take by mouth. Activetake 1 tablet by mouth once dailycetirizine (ZyrTEC) 10 mg tablet take 1 tablet by mouth once daily if needed for allergies Activecholecalciferol 0.05 mg oral capsule (17 sources)Vitamin DStart: 51-99-7640qnwq 1 capsule by mouth in the morningRA Vitamin D-3 50 MCG (1999 UT) capsule Take 50 mcg by mouth in the morning. 05/18/2022 Activecholecalciferol, vitamin D3, (D3-1999 ORAL) (7 sources)cholecalciferol, vitamin D3, (D3-1999 ORAL) Take by mouth. Active cholestyramine resin 4000 mg powder for oral suspension (1 source)Bile Acid SequestrantStart: 11-83-3866Barkzwbu 4 g/9 g oral powder = 1 packet(s), Oral, Daily, # 30 EA, Refills(s) 3, Pharmacy: [email or web address] #72, 158, cm, 08/05/24 14:23:00 EDT, Height/Length Dosing, 77.2, kg, 08/05/24 14:23:00EDT, Weight Dosing Start Date: 08/05/24 Status: Ordered Quantity: 30.0 Unit: EA Repeat number: 4 Indications: Adverse effect of other nonsteroidal anti-inflammatory drugs [NSAID], initial encounter; Noninfective gastroenteritis and colitis, unspecified; Postcholecystectomy syndrome; Acquired absenceof other specified parts of digestive tract; Acquired absence of other specified parts of digestivetract;ciprofloxacin 500 mg oral tablet (1 source)Quinolone AntimicrobialStart: 04-07-2024 End: 38-68-8953Bmgvo 500 mg Tab 500 mg = 1 tab(s), Oral, q12hr, Start morning of white removal in 1-2 days, X 1 day(s), # 2 tab(s), Refills(s) 0, Pharmacy: [email or web address] #[facility], 158, cm, 03/24/24 11:38:00 EST, Height/Length Dosing, 75.5, kg, 03/24/24 11:38:00 EST, Weight Dosing Start Date: 04/07/24 Stop Date: 04/08/24 Status: Orderedclobetasol propionate 0.0005 mg/mg topical ointment (2 sources)CorticosteroidStart: 04-16-2024 End: 91-58-0215pvwcadbhql (Temovate) 0.05 % ointment Indications: Lichen sclerosus et atrophicus Apply topically 2(two) times a day for 7 days 30 g 2 04/16/2024 04/23/2024 Activecodeine phosphate/guaifenesin (CODEINE-GUAIFENESIN ORAL) (7 sources)codeine phosphate/guaifenesin (CODEINE-GUAIFENESIN ORAL) Take by mouth. Activeenteric contrast (will be provided with radiology test) (1 source)Start: 10-31-2023 End: 50-53-1294czapmav contrast (will be provided with radiology test) For CT ENTEROGRAPHY W IVCON order Administer, As Directed One Time Only, via Oral, Rectal, both Oral and Rectal, Enteric Tube, Stoma or Indwelling Catheter, Enteric Contrast as designated per enteric contrast guidelines. 1 Each 0 10/31/2023 11/01/2023 Afrhsfjyl791436 0.3 ml EPINEPHrine 1 mg/ml auto-injector (20 sources)alpha-Adrenergic Agonist, beta-Adrenergic Agonist, Catecholamine Start: 64-94-2250Kencxzychyn 0.3 mg/0.3 mL auto-injector Active 0.3 MG IM every 5 to 15 minutes as needed February 05, 2024 1:00am do not exceed 3 doses per episode Complies with drug therapyStart: 13-19-8299gcxupc 0.3 mg by intramuscular injection once as neededEpiPen 2-Giovani 0.3 mg, IntraMuscular, Once, PRN Anaphylaxis, Refills(s) 0 Start Date: 09/04/19 Status:Ordered Repeat number: 1Start: 92-79-3397tvdbql 0.3 mg by intramuscular injection once as neededEpiPen 2-Giovani 0.3 mg, IntraMuscular, Once, PRN Anaphylaxis, Refills(s) 0 Start Date: 09/04/19 Status:OrderedStart: 83-47-6996xiokpw 0.3 mg by intramuscular injection onceEpiPen 2-Giovani 0.3 mg, IntraMuscular, Once, Refills(s) 0 Start Date: 09/04/19 Status: OrderedEpiPen 2-Giovani 0.3 MG/0.3ML injection syringe as directed Injection ActiveEPINEPHrine (EPIPEN) 0.3 mg/0.3 mL auto-injector Inject 0.3 mg intramuscularly as needed. ActiveEPINEPHrine 0.3 MG/0.3ML Injection Active famotidine 20 mg oral tablet (20 sources)Histamine-2 Receptor AntagonistStart: 01-27-2024 End: 38-26-0654Yyegmerolv 20 mg tablet Discontinued 0 .ROUTE .COMPLEX January 27, 2024 1:59pm January 10:02am TAKE 1 TABLET AT BEDTIME Start: 25-05-7487ehstywfvyv (Pepcid) 20 MG tablet Take by mouth 02/20/2023 ActiveStart: 12-23-2022 End: 14-77-4877lezf 1 tablet by mouth once daily at bedtimeFamotidine 20 mg tablet Active 20 MG PO Daily at bedtime February 05, 2024 10:02am Complieswith drug therapyfluocinonide 0.5 mg/ml topical solution (11 sources)CorticosteroidStart: 51-29-5478yxdynuhiivhq (Lidex) 0.05 % external solution Indications: Pruritus Apply to affected areas on the scalp, up to twice a day when flared, 30 day supply 60 mL 03/07/2023 Activefluticasone propionate 0.093 mg/actuat metered dose nasal spray (20 sources)CorticosteroidStart: 71-13-1979Hjytls 93 mcg/inh nasal spray mcg, spray(s), BID, Refill(s) 0 Start Date: 02/05/24 Status: Ordered Repeat number: 1 Start: 31-30-8685elfp 1 spray(s) nasal route twice dailyFluticasone Propionate (Xhance) 93 mcg/actuation aerosol breath activated Active 1 SPRAY INTRANASAL Twice daily February 05, 2024 1:00am into each nostril Complies with drug therapyStart: 09-23-2023 End: 93-58-2905vdnd 1 spray(s) nasal route in the morningFluticasone Propionate (Xhance) 93 MCG/ACT Exhaler Suspension Indications: Chronic pansinusitis Admi nister 1 spray into affected nostril(s) in the morning and 1 spray before bedtime. 48 mL 3 12/30/2023 ActiveStart: 07-02-2023 End: 89-95-6305wgsy 2 spray(s) nasal route once dailyfluticasone (Flonase) 50 MCG/ACT nasal spray Indications: Chronic pansinusitis Administer 2 sprays into each nostril Daily Shake gently. Before first use, prime pump. After use, clean tip and replacecap. 16 g 11 07/02/2023 ActiveStart: 75-03-5270wzljwbhlkny 0.05 mg/inh Nasal [place] 2 spray(s), Nasal, Daily, Refill(s) 0 Start Date: 09/02/19 Status: OrderedStart: 10-21-2018 End: 63-35-3240Mcyogiryoco Propionate 50 mcg/actuation spray,suspension Active 2 SPRAY INTRANASAL Daily May 23, 2023 5:44pm Complies with drug therapy fluticasone propionate (XHANCE) 93 mcg/actuation nasal spray Use in each nostril two times a day. Activefluticasone propionate (Xhance) 93 mcg/actuation aerosol breath activated Administer into affected nostril(s). Activetake 2 spray(s) nasal route once dailyFluticasone Propionate 50 MCG/ACT 2 sprays each nostril) Nasally Once a day Activetake 2 spray(s) nasal route once dailyFluticasone Propionate 50 MCG/ACT 2 sprays each nostril) Nasally Once a day Active Fluticasone Propionate Ibymlp42 actuat fluticasone furoate 0.1 mg/actuat / umeclidinium 0.0625 mg/actuat / vilanterol 0.025 mg/actuat dry powder inhaler (5 sources)Anticholinergic, Corticosteroid, beta2-Adrenergic AgonistStart: 68-15-1295vdld 1 puff(s) by inhalation once dailyTrelegy Ellipta 100-62.5-25 MCG/ACT 1 puff Inhalation Once a day for 90 days Feb, ActiveFluticasone Furoate-Vilanterol (20 sources)Corticosteroid, beta2-Adrenergic AgonistStart: 96-91-0725Wjxtkqstepf Furoate-Vilanterol (Breo Ellipta) 200-25 mcg/dose blister with device Active 1 INH INHALATION Daily 90 April 20, 2024 10:23am Complies with drug therapy Start: 02-05-2024 End: 27-74-6796Wmrrgngfgwg Furoate-Vilanterol (Breo Ellipta) 200-25 mcg/dose blister with device Discontinued 1 INH INHALATION Daily February 05, 2024 1:00am April 20, 2024 10:24amStart: 96-12-2729Xenljtgocut Furoate-Vilanterol (Breo Ellipta) 200-25 mcg/dose blister with device Active 1 INH INHALATION Daily February 05, 2024 12:00amStart: 65-47-7307Dodm Ellipta 200-25 mcg/dose inhaler 01/25/2023 ActiveStart: 10-21-2018 End: 11-42-2097zgej 1 puff(s) by inhalation once dailyFluticasone Furoate- Vilanterol (Breo Ellipta) 200-25 mcg/dose blister with device Discontinued 1 PUF F INHALATION Daily October 21, 2018 12:00am February 05, 2024 9:44amStart: 10-21-2018 End: 00-13-6159yufu 1 puff(s) by inhalation once dailyFluticasone Furoate- Vilanterol (Breo Ellipta) 200-25 mcg/dose blister with device Discontinued 1 PUF F INHALATION Daily October 20, 2018 11:00pm February 05, 2024 8:44amStart: 97-38-2577wdhf 1 puff(s) by inhalation once dailyFluticasone Furoate-Vilanterol (Breo Ellipta) 200-25 mcg/dose blister with device Active 1 PUFF INHALATION Daily October 21, 2018 12:00amfluticasone-vilanterol (BREO ELLIPTA) 100-25 mcg/dose inhaler Inhale 1 Inhalation as instructed once daily. ActiveBreo Ellipta 200-25 MCG/ACT USE 1 INHALATION ORALLY DAILY Inhalation Once a day for 90 days Activetake 1 puff(s) by inhalation once dailyBreo Ellipta 100-25 MCG/ACT 1 puff Inhalation Once a day for 90 days Activetake 1 puff(s) by inhalation once dailyBREO ELLIPTA 200/25 mcg 1 puff Inhalation daily Activefluticasone 0.05 mg/inh Nasal [place] (19 sources)Start: 78-37-9969ozkrqarkuwg 0.05 mg/inh Nasal [place] 2 spray(s), Nasal, Daily, Refill(s) 0 Start Date: 09/02/19 Status: Ordered Repeat number: 1 Start: 57-53-9582tatugwpinbr 0.05 mg/inh Nasal [place] 2 spray(s), Nasal, Daily, Refill(s) 0 Start Date: 09/02/19 Status: OrderedHair, Skin & Nails 5 mg oral capsule (8 sources)Start: 29-77-3201wryi 1 mg by mouth once dailyHair, Skin & Nails 5 mg oral capsule mg, cap(s), Oral, Daily, Refill(s) 0 Start Date: 02/05/24 Status: Ordered Repeat number: 1Start: 49-87-2951uxoi 1 mg by mouth once dailyHair, Skin & Nails 5 mg oral capsule mg, cap(s), Oral, Daily, Refill(s) 0 Start Date: 02/05/24 Status: Orderedibuprofen 200 mg oral capsule (7 sources)Nonsteroidal Anti-inflammatory DrugIbuprofen 200 mg cap Take by mouth every 6 hours as needed. Activeiron bis-glycinat/vit C/FA/B12 (GENTLE IRON ORAL) (7 sources)iron bis-glycinat/vit C/FA/B12 (GENTLE IRON ORAL) Take by mouth. Activeiron polysaccharide complex (FERREX 150 ORAL) (7 sources)iron polysaccharide complex (FERREX 150 ORAL) Take by mouth every other day. Activeiv contrast (will be provided with radiology test) (1 source)Start: 10-31-2023 End: 61-27-8103ri contrast (will be provided with radiology test) CT Enterography W Inject, intravenously, once for 1 dose.No IV access, insert saline lock prior to the beginning of sedation, infusion, injection ofimaging exam. Discontinue saline lock post exam. If Pt. has a central line or IVAD, may access for administration according to line specific nursing protocol. Once exam is complete flush line and de-access according to line specific nursing protocol in the CT contrast administration guidelines link. 1 Each 0 10/31/2023 11/01/2023 ActivelevoFLOXacin 750 mg oral tablet (5 sources)Quinolone AntimicrobialStart: 07-31-3271bggy 1 tablet by mouth every twenty-four hourslevoFLOXacin 750 MG 1 tablet Orally Once a day for 5 days Mar, Activelevothyroxine sodium 0.1 mg oral tablet (20 sources)l-ThyroxineStart: 05-04-4740lbwk 1 tablet by mouth once daily levothyroxine 100 mcg (0.1 mg) Tab 100 mcg = 1 tab(s), Oral, Daily, Refills(s) 0, Thyroid Start Date: 03/24/24 Status: Ordered Repeat number: 1Start: 01-27-2024 Levothyroxine 100 mcg tablet Active 0 .ROUTE .COMPLEX January 27, 2024 1:59pm TAKE 1 TABLET DAILY ON AN EMPTY STOMACH (REPLACING 88MCG) Complies with drug therapyStart: 68-66-5271ijxp 1 tablet by mouth once dailylevothyroxine 88 mcg (0.088 mg) Tab 88 microgram = 1 tab(s), Oral, Daily, Refills(s) 0, Thyroid Start Date: 09/04/19 Status: OrderedStart: 12-08-2007 End: 21-17-3129lodg 1 tablet by mouth once dailyLevothyroxine 100 mcg Tablet Discontinued 100 MCG PO Daily October 21, 2018 12:00am January 27, 2024 2:00pmlevothyroxine (Synthroid, Levoxyl) 88 MCG tablet 1 (one) time each day at the same time Activelevothyroxine (Synthroid, Levoxyl) 100 mcg tablet once every 24 hours. Activetake 1 tablet by mouth once dailyLevothyroxine Sodium 100 MCG TAKE 1 TABLET DAILY ON AN EMPTY STOMACH. (REPLACING 88MCG) Orally Oncea day for 90 days ActiveLevothyroxine Sodium Qslfua83 hr loratadine 5 mg / pseudoephedrine sulfate 120 mg extended release oral tablet (20 sources)alpha-Adrenergic AgonistStart: 07-89-6419jdxw 5-120 mg by mouth twice daily as neededClaritin-D 12 Hour 5-120 MG 1 tablet Orally two times daily, as needed Apr, ActiveStart: 27-31-2627bcdx 1 tablet by mouth once dailyClaritin-D 5 mg-120 mg Tab-ER 1 tab(s), Oral, Daily, Refill(s) 0 Start Date: 09/04/19 Status: OrderedStart: 10-21-2018 End: 34-12-0282uigj 1 tablet by mouth once daily, then take 1 tablet by mouth every twenty-four hoursLoratadine-Pseudoephedrine (Claritin-D 24 Hour) 10-240 mg Tablet Extended Release 24 Hr Discontinued 1 TAB PO Daily October 21, 2018 12:00am February 05, 2024 9:44am End: 99-78-8531ijhk 1 tablet by mouth once in the morning, then take 1 tablet by mouth every twelve hours at bedtimeloratadine-pseudoephedrine ER (Claritin-D 12-hour) 5-120 MG 12 hr tablet Take 1 tablet by mouth in the morning and 1 tablet before bedtime. Do not crush, chew, or split.. 04/30/2024 Discontinued LORazepam 0.5 mg oral tablet (15 sources)BenzodiazepineStart: 89-64-8066EATxyqszo 0.5 MG 1/2 - 1 Orally Once a day as needed for anxiety for 30 days Jan, Activemetoclopramide 10 mg oral tablet (16 sources)Dopamine-2 Receptor AntagonistStart: 47-02-6984rkwv 1 tablet by mouth onceReglan 10 mg Tab 10 mg = 1 tab(s), Oral, Once, # 1 tab(s), Refills(s) 0, called to pharmacy (Rx) Start Date: 07/12/23 Status: OrderedStart: 07-12-2023 metoclopramide (Reglan) 10 MG tablet Take 10 mg by mouth in the morning and 10 mg at noon and 10 mgin the evening and 10 mg before bedtime. 07/12/2023 Active metroNIDAZOLE 0.01 mg/mg topical gel (20 sources)Nitroimidazole AntimicrobialStart: 09-15-2024 End: 96-49-0606jbdwpRDOXOZHF (Metrogel) 1 % gel Indications: Lichen sclerosus et atrophicus Apply 1 application topically Daily Apply 1 application topically Daily 60 g 1 09/15/2024 12/14/2024 ActiveStart: 29-21-6354Fninkluurcjqi 0.75 % (37.5mg/5 gram) gel Active 1 APPLICATOR VAGINAL Twice daily February 05, 2024 1:00am Complies with drug therapymetroNIDAZOLE (METROGEL) 0.75 % Vaginal Gel Use 1 Applicatorful vaginally daily at bedtime. ActivemetroNIDAZOLE 0.75 % 1 application to affected area Externally Twice a day Not-Taking/PRN24 hr mirabegron 50 mg extended release oral tablet (1 source)beta3-Adrenergic AgonistStart: 85-91-8348zalp 1 tablet by mouth once dailyMyrbetriq 50 mg oral tablet, extended release 50 mg = 1 tab(s), Oral, Daily, # 30 tab(s), Refills(s) 6, Pharmacy: [facility][id number], 158, cm, 12/01/21 9:55:00 EDT, Height/Length Dosing, 68, kg, 12/01/21 9:55:00 EDT, Weight Dosing Start Date: 12/01/21 Status: Orderedmontelukast 10 mg oral tablet (20 sources)Leukotriene Receptor AntagonistStart: 47-07-4965Qsclqwrqjze 10 mg tablet Active 0 .ROUTE .COMPLEX 90 May 01, 2024 2:14pm TAKE 1 TABLET DAILYComplies with drug therapyStart: 12-26-2022 End: 58-45-3497cxnw 1 tablet by mouth once daily in the eveningmontelukast 10 mg Tab 10 mg = 1 tab(s), Oral, qPM, # 90 tab(s), Refills(s) 0, Asthma Start Date: 02/05/24 Status: Ordered Quantity: 90.0 Unit: tab(s) Repeat number: 1Multi Vitamins oral tablet (8 sources)Start: 36-37-6497Lynru Vitamins oral tablet 1 tab(s), Oral, Daily, 30 tab(s), Refill(s) 0 Start Date: 02/05/24 Status: Ordered Quantity: 30.0 Unit: tab(s) Repeat number: 1Start: 40-82-6890Rrjks Vitamins oral tablet 1 tab(s), Oral, Daily, 30 tab(s), Refill(s) 0 Start Date: 02/05/24 Status: Orderedmv- min/iron/folic/calcium/vitK (WOMEN'S MULTIVITAMIN ORAL) (7 sources)mv-min/iron/folic/calcium/vitK (WOMEN'S MULTIVITAMIN ORAL) Take by mouth. Activenitrofurantoin, macrocrystals 100 mg oral capsule (9 sources)Nitrofuran AntibacterialStart: 07-15-6121ekrv 1 capsule by mouth once daily at bedtimeNitrofurantoin Macrocrystal 100 mg capsule Active 100 MG PO Daily at bedtime February 05, 2024 1:00am after intercourse Complies with drug therapynitrofurantoin macrocrystal (MACRODANTIN) 100 mg capsule 100 mg by ORAL/FEEDING TUBE route. 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 60 packet 3 07/27 Hgvply79 hr orphenadrine citrate 100 mg extended release oral tablet (13 sources)Muscle RelaxantStart: 62-63-1708fxrqnsocnswh ER (NORFLEX) 100 mg tablet Two tablets daily as needed 40 tablet 0 02/06/2016 Activeorphenadrine compounding powder (8 sources)Start: 51-58-7566wyghjbckkhzl compounding powder PRN Migraine headache, Refills(s) 0 Start Date: 02/05/24 Status: Ordered Repeat number: 1 Start: 85-80-5659kfkologtqdov compounding powder PRN Migraine headache, Refills(s) 0 Start Date: 02/05/24 Status: OrderedStart: 26-15-4637yqfszkfjvhdj compounding powder Refills(s) 0 Start Date: 02/05/24 Status: Orderedoxybutynin chloride 5 mg oral tablet (3 sources)Cholinergic Muscarinic AntagonistStart: 64-12-5350kiqw 1 tablet by mouth three times daily as needed for muscle spasmsoxybutynin 5 mg Tab 5 mg = 1 tab(s), Oral, TID, PRN bladder spasms, # 30 tab(s), Refills(s) 0, Pharmacy: [facility] #[id number], 158, cm, 03/24/24 11:38:00 EST, Height/Length Dosing, 75.5, kg, 03/24/24 11:38:00 EST, Weight Dosing Start Date: 04/07/24 Status: Orderedpain off aspirin (1 source)Start: 12-42-1259uztf off aspirin pain off aspirin Start Date: 04/13/21 Status: Orderedpantoprazole 40 mg delayed release oral tablet (20 sources)Proton Pump InhibitorStart: 68-48-6128Ucvyhxjjzykm 40 mg tablet,delayed release (DR/EC) Active 0 .ROUTE .COMPLEX January 27, 2024 1:59pm TAKE 1 TABLET DAILY ON AN EMPTY STOMACH FOLLOWED IN 30 MINUTES BY BREAKFAST Complies with drugtherapyStart: 12-11-2019 End: 55-76-7320yefw 1 tablet by mouth in the morningpantoprazole (ProtoNix) 40 MG EC tablet Indications: Gastroesophageal reflux disease without esophagitis Take 1 tablet (40 mg) by mouth in the morning and 1 tablet (40 mg) before bedtime. Do not crush, chew, or split.. 60 tablet 11 09/23/2023 Activetake 1 tablet by mouth twice dailypantoprazole DR (PROTONIX) 40 mg tablet Take 40 mg by mouth two times a day. ActivePantoprazole 40 mg tablet,delayed release (DR/EC) (1 source)Start: 18-06-4052Kxhkadzwxiur 40 mg tablet,delayed release (DR/EC) Active 0 .ROUTE .COMPLEX January 27, 2024 12:59pm TAKE 1 TABLET DAILY ON AN EMPTY STOMACH FOLLOWED IN 30 MINUTES BY BREAKFASTpolyethylene glycol 3350 703144 mg / potassium chloride 2970 mg / sodium bicarbonate 6740 mg / sodium chloride 5860 mg / sodium sulfate 05378 mg powder for oral solution (7 sources)Osmotic LaxativeStart: 15-82-1187ogz 3350-Electrolytes (GOLYTELY) 236-22.74-6.74 -5.86 gram suspension Indications: Iron deficiency anemia due to chronic blood loss Add water to powder in the jug up to the fill line. Starting at 6pmthe evening before the colonsocopy, drink 8 oz every 15 minutes until half to three quarters of thejug is consumed AND returns are clear. Take a break. Finish the remainder of the jug 4 hours beforeyour procedure. 1 Each 12/27/2023 Activepolysaccharide iron complex 150 mg oral capsule (20 sources)Start: 58-54-8599Tjzgrtiuxsysfq Iron Complex (Ferrex 150) 150 mg iron capsule Active 150 MG PO Daily February 05, 2024 1:00am Complies with drug therapyStart: 48-77-8510ckkr 150 mg by mouth every other dayFerrex-150 150 mg, Oral, Every other day, Refills(s) 0, Prophylaxis Start Date: 05/22/23 Status: OrderedpredniSONE 20 mg oral tablet (20 sources)Start: 06-21-2023 End: 19-23-4756pwxe 1 tablet by mouth once dailypredniSONE (Deltasone) 20 MG tablet Take 20 mg by mouth Daily 06/21/2023 04/30/2024 DiscontinuedStart: 06-21-2023 End: 37-70-3370Ssthwpwnku 20 mg tablet Discontinued 20 MG PO As Directed June 21, 2023 12:00am January 9:45am 1 tab tid w/ food x 3 days, then bid w/ food x 3 days, then qd w/ food x 3 daysStart: 12-80-2576yhnirwECOQ 20 MG 1 tablet Orally tid w/ food x 3 days then bid w/ food x 3 days, then qd w/ food x 3 days for 9 days Nov, Not-Taking/PRNStart: 31-21-1306ixvg 1 tablet by mouth every twelve hoursprednisone 20 MG 1 tablet Orally BID for 5 Oct, Not-Taking/PRNProAir HFA 108 (90 Base) MCG/ACT (20 sources)take 2 puff(s) by inhalation every four hours as needed for cough ProAir HFA 108 (90 Base) MCG/ACT 2 puffs as needed Inhalation every 4 hrs as needed for cough, SOB Activetake 2 puff(s) by inhalation every four hours as needed for coughProAir HFA 108 (90 Base) MCG/ACT 2 puffs as needed Inhalation every 4 hrs as needed for cough, SOB for 90 days Activetake 2 puff(s) by inhalation every four hours as neededProAir HFA 108 (90 Base) MCG/ACT 2 puffs as needed Inhalation every 4 hrs ActiveProAir HFA 90 mcg/inh inhalation aerosol (19 sources)Start: 28-71-1782qpty 2 puff(s) by inhalation every four hoursProAir HFA 90 mcg/inh inhalation aerosol 2 puff(s), Inhalation, q4hr Shortness of breath or wheezing, Refill(s) 0 Start Date: 09/02/19 Status: Ordered Repeat number: 1Start: 96-75-3394enra 2 puff(s) by inhalation every four hoursProAir HFA 90 mcg/inh inhalation aerosol 2 puff(s), Inhalation, q4hr Shortness of breath or wheezing, Refill(s) 0 Start Date: 09/02/19 Status: Orderedsucralfate 1000 mg oral tablet (2 sources)Aluminum ComplexStart: 12-10-2024 End: 45-60-6189feoq 1 tablet by mouth four times dailyCarafate 1 gram Tab 1 gm = 1 tab(s), Oral, QID, X 28 day(s), # 112 tab(s), Refills(s) 0, Pharmacy: [facility] #[id number], 158, cm, 12/10/24 8:44:00 EDT, Height/Length Dosing, 76.6, kg, 12/10/24 8:44:00 EDT, Weight Dosing Start Date: 12/10/24 Stop Date: 01/07/25 Status: Ordered Quantity: 112.0 Unit: tab(s) Repeat number: 1 Indications: Epigastric pain; Noninfective gastroenteritis and colitis, unspecified; Postcholecystectomy syndrome; Acquired absence of other specified parts of digestive tract; Adverse effect of other nonsteroidal anti-inflammatory drugs [NSAID], initial encounter; Anemia, unspecified;Start: 12-11-2019 sucralfate tab 1 gram = 1 tab(s), Oral, QIDACHS, Refills(s) 0 Start Date: 12/11/19 Status: OrderedTrelegy Ellipta (10 sources)Start: 04-56-7820Tpqkqdp Ellipta Inhalation, Daily, Refills(s) 0, Shortness of breath or wheezing Start Date: 05/14/23 Status: OrderedStart: 39-98-0420Qyjxfua Ellipta Inhalation, Daily, Refills(s) 0 Start Date: 05/14/23 Status: OrderedTrelegy Ellipta 200 mcg-62.5 mcg-25 mcg/inh inhalation powder (2 sources)Start: 66-86-5657rahb 1 puff(s) by inhalation once dailyTrelegy Ellipta 200 mcg-62.5 mcg-25 mcg/inh inhalation powder puff(s), Inhalation, Daily, Refill(s)0 Start Date: 02/20/23 Status: Orderedtrelegy ellipta 200-62.5-25 mcg/act aerosol powder breath activated (9 sources)Start: 44-61-3239gysp 1 puff(s) by inhalation once dailyTrelegy Ellipta 200-62.5-25 MCG/ACT 1 puff Inhalation Once a day Feb, Active Start: 25-91-9586rbxf 1 puff(s) by inhalation once dailyTrelegy Ellipta 200-62.5-25 MCG/ACT 1 puff Inhalation Once a day for 30 days Feb, Active vit A/vit C/biotin/zinc/copper (NKBU-MGNE-ZVSF,VIT A,C-BIOTIN, ORAL) (7 sources)vit A/vit C/biotin/zinc/copper (TGPR-GQQV-TPLC,VIT A,C-BIOTIN, ORAL) Take by mouth. ActiveVitamin D3 (18 sources)Start: 50-30-0886Phzlcva D3 Oral, Daily, Refills(s) 0, Prophylaxis Start Date: 05/14/23 Status: Ordered Repeat number: 1Start: 27-57-4655Znsjhqd D3 Oral, Daily, Refills(s) 0, Prophylaxis Start Date: 05/14/23 Status: OrderedStart: 92-63-8047Cbohigz D3 Refills(s) 0 Start Date: 05/14/23 Status: Ordered Completed/Discontinued Medications MedicationDrug Class(es)DatesSig (Normalized)Sig (Original)acetaminophen 250 mg / aspirin 250 mg / caffeine 65 mg oral tablet (6 sources)Platelet Aggregation Inhibitor, Nonsteroidal Anti-inflammatory Drug, Central Nervous System Stimulant, MethylxanthineStart: 10-21-2018 End: 97-62-6249Lobuojk-Acetaminophen-Caffeine (Pain-Off) 250-250-65 mg Tablet Discontinued 2 TAB PO As Directed asneeded for Headache October 21, 2018 12:00am February 05, 2024 9:42amacetaminophen 300 mg / butalbital 50 mg / caffeine 40 mg oral capsule (8 sources)Barbiturate, Central Nervous System Stimulant, Methylxanthine End: 1952Bmydbuyktf-Acetaminophen-Caff (FIORICET) 50-300-40 mg cap Take by mouth. 12/27/2023 Discontinued (Other)benazepril hydrochloride 10 mg oral tablet (20 sources)Angiotensin Converting Enzyme InhibitorStart: 10-21-2018 End: 45-64-1343ezex 1 tablet by mouth once dailyBenazepril 10 mg tablet Discontinued 10 MG PO Daily October 21, 2018 12:00am February 05, 2024 9:42am benzonatate 100 mg oral capsule (18 sources)Non-narcotic AntitussiveStart: 78-85-3544wxpg 1 capsule by mouth three times daily as neededTessalon Perles 100 MG 1 capsule as needed Orally Three times a day for 7 days Oct, Not-Taking/PRNbisacodyl 5 mg delayed release oral tablet (1 source)Stimulant LaxativeStart: 12-27-2023 End: 11-79-8959akcf 4 tablets by mouth oncebisacodyl EC (DULCOLAX, BISACODYL,) 5 mg EC tablet Indications: Iron deficiency anemia due to chronic blood loss Take 4 tablets by mouth one time only for 1 dose. For rectal double balloon enteroscopy preparation. 4 tablet 12/27/2023 12/27/2023 ExpiredClaritin-D 12 Hour 5-120 MG (14 sources)Start: 87-77-2052dkrn 5-120 mg by mouth twice daily as needed Claritin-D 12 Hour 5-120 MG 1 tablet Orally two times daily, as needed Apr, Not-TakingStart: 99-69-7318gpij 5-120 mg by mouth twice daily as needed Claritin-D 12 Hour 5-120 MG 1 tablet Orally two times daily, as needed for 90 days Apr, Activecodeine phosphate 2 mg/ml / guaiFENesin 20 mg/ml oral solution (20 sources)Opioid AgonistStart: 06-21-2023 End: 48-18-4976filr 5 mL by mouth three times daily as neededguaiFENesin-codeine (Robitussin-AC) 100-10 MG/5ML syrup Take 5 mL by mouth 3 (three) times a day as needed 06/21/2023 04/30/2024 DiscontinuedStart: 69-33-8702wrhvksd-guaifenesin (Robitussin-AC) 10-100 mg/5 mL syrup Every 6 hours 06/21/2023 ActiveStart: 06-19-2023 End: 23-76-3577roxd 1 mL by mouth every six hours as needed for coughCodeine- Guaifenesin 10-100 mg/5 mL liquid Discontinued 5 ML PO Every 6 hours as needed for cough 200 August 09, 2023 4:54pm February 05, 2024 9:43amStart: 06-19-2023 End: 91-05-3140rwln 1 mL by mouth every six hours as needed for coughCodeine- Guaifenesin 10-100 mg/5 mL liquid Discontinued 5 ML PO Every 6 hours as needed for cough 200 June 18, 2023 11:00pm August 09, 2023 12:02pmStart: 06-19-2023 End: 48-65-1714cwmr 1 mL by mouth every six hoursCodeine-Guaifenesin Discontinued 5 ML PO Every 6 hours 200 June 19, 2023 12:00am August 09, 2023 1:02pmStart: 03-50-4719ghly 1 mL by mouth every six hoursCodeine-Guaifenesin Active 5 ML PO Every 6 hours 200 June 19, 2023 12:00amStart: 37-25-3103pawn 10 mL by mouth every six hours as needed for coughguaiFENesin-Codeine 100-10 MG/5ML 10 mL Orally every 6 hours as needed for cough for 7 days ActiveStart: 60-68-4906bqtg 10 mL by mouth every six hours as needed for cough guaiFENesin-Codeine 100-10 MG/5ML 10 mL Orally every 6 hours as needed for cough for 7 days ActiveStart: 79-29-0856udoc 10 mL by mouth every six hours as needed for coughguaiFENesin-Codeine 100-10 MG/5ML 10 mL Orally every 6 hours as needed for cough for 10 days Dec, Not-TakingcycloSPORINE 0.5 mg/ml ophthalmic suspension (20 sources)Calcineurin Inhibitor ImmunosuppressantStart: 10-21-2018 End: 55-76-5063spvg 1 drop(s) into the eye(s) twice dailyCyclosporine (Restasis) 0.05 % Dropperette Discontinued 1 DROPS OPHTHALMIC Twice daily October 21, 2018 12:00am February 05, 2024 9:43am End: 16-34-4634ogaf 1 drop(s) into the eye(s) twice dailycycloSPORINE (RESTASIS) 0.05 % ophthalmic emulsion 1 Drop twice daily. 12/27/2023 Discontinued (Other) doxycycline hyclate 100 mg oral capsule (20 sources)Tetracycline-class DrugStart: 06-21-2023 End: 83-87-9068jtbc 1 capsule by mouth twice dailyDoxycycline Hyclate 100 mg capsule Discontinued 100 MG PO Twice daily 04 01August 20, 2023 12:00am February 05, 2024 9:43amtake 1 tablet by mouth in the morningdoxycycline (Adoxa) 100 MG tablet Take 100 mg by mouth in the morning and 100 mg before bedtime. Take with a full glass of water and do not lie down for at least 30 minutes after. Activeestradiol 0.1 mg/ml vaginal cream (20 sources)EstrogenStart: 13-59-4142wzabxdife 0.1 mg/g Vag Crm See Instructions, 42.5 gm, Refill(s) 0, apply pea sized amount to urethra 2x/wk, [facility], 158, cm, 02/05/24 11:08:00 EST, Height/Length Dosing, 62, kg, 02/05/24 11:08:00 EST, Weight Dosing Start Date: 02/05/24 Status: Ordered Quantity: 42.5 Unit: g Repeat number: 1Start: 02-05-2024 Estradiol 0.01 % (0.1 mg/gram) cream Active 1 APPLICATOR VAGINAL Twice daily February 05, 2024 1:00am Complies with drug therapyStart: 77-30-5622pcphexwpq (Estrace) 0.1 MG/GM vaginal cream See Instructions, 42.5 gm, Refill(s) 0, apply pea sizedamount to urethra 2x/wk, [facility], 158, cm, 02/20/23 8:48:00 EST, Height/Length Dosing, 68.5, kg, 02/20/23 8:48:00 EST, Weight Dosing 02/20/2023 ActiveStart: 70-68-8583afkjzktvb 0.1 mg/g Vag Crm See Instructions, 42.5 gm, Refill(s) 0, apply pea sized amount to urethra 2x/wk, [facility], 158, cm, 02/20/23 8:48:00 EST, Height/Length Dosing, 68.5, kg, 02/20/23 8:48:00 EST, Weight Dosing Start Date: 02/20/23 Status: OrderedStart: 15-10-3862zxihlqcnw 0.1 mg/g vaginal cream See Instructions, Apply pea sized amount to external urethral 3 times a week for 2 weeks (at bedtime), then twice a week after for maintenance, # 42.5 gm, Refills(s) 1, Pharmacy: [facility] [address], 158, cm, 04/13/21 9:47:00 EST, Height/Length Do... Start Date:04/13/21 Status: OrderedStart: 10-21-2018 End: 40-30-4938Nyrudkalq (Yuvafem) 10 mcg Tablet Discontinued 10 MCG Twice a Week October 21, 2018 12:00am February 05, 2024 9:44amStart: 10-21-2018 End: 49-22-5715Lzavlrehp 10 mcg tablet Discontinued October 21, 2018 12:00am October 21, 2018 3:20pmEstradiol (VAGIFEM) 10 mcg tab vaginal tablet Use 10 mcg vaginally once daily. Activefluconazole 150 mg oral tablet (7 sources)Azole Antifungal End: 38-64-5471ihjs 1 tablet by mouth oncefluconazole (DIFLUCAN) 150 mg tablet Take 150 mg by mouth one time only. 12/27/2023 Discontinued (Other)nabumetone 750 mg oral tablet (6 sources)Nonsteroidal Anti-inflammatory DrugStart: 10-21-2018 End: 12-21-7229imkv 1 tablet by mouth once dailyNabumetone 750 mg Tablet Discontinued 1500 MG PO Daily October 21, 2018 12:00am February 0449:45am Start: 84-20-8325gzvr 1500 mg by mouth once dailyNabumetone Active 1500 MG PO Daily October 21, 2018 12:00amnitrofurantoin, macrocrystals 25 mg / nitrofurantoin, monohydrate 75 mg oral capsule (20 sources)Nitrofuran AntibacterialStart: 17-72-4960Njrrplno 100 mg Cap 100 mg = 1 cap(s), Oral, As Directed, take 1 tablet within 1 hour before or after intercourse to prevent infection., # 30 cap(s), Refills(s) 3, Pharmacy: [facility], 158, cm, 08/05/24 14:23:00 EDT, Height/Length Dosing, 77.2, kg, 08/05/24 14:23:00 EDT, Weight Dosing Start Date: 10/28/24 Status: Ordered Quantity: 30.0 Unit: cap(s) Repeat number: 4Start: 10-48-9940Mksehdhl 100 mg Cap 100 mg = 1 cap(s), Oral, As Directed, take 1 tablet within 1 hour before or after intercourse to prevent infection., # 30 cap(s), Refills(s) 3, Pharmacy: [facility], 158, cm, 02/20/23 8:48:00 EST, Height/Length Dosing, 68.5, kg, 02/20/23 8:48:00 EST, Weight Dosing Start Date: 02/20/23 Status: Orderedomeprazole 40 mg delayed release oral capsule (20 sources)Proton Pump InhibitorStart: 10-21-2018 End: 95-29-8186qfez 1 capsule by mouth once dailyOmeprazole 40 mg Capsule,Delayed Release(Dr/Ec) Discontinued 40 MG PO Daily October 21, 2018 12:00am February 05, 2024 9:45ampsyllium 520 mg oral capsule (6 sources)Start: 10-21-2018 End: 38-77-2047Yzbiyjhz Husk (Metamucil) 0.52 gram Capsule Discontinued 1 CAP PO Twice daily October 21, 2018 12:00am February 05, 2024 9:46amtriamcinolone acetonide 40 mg/ml injectable suspension (20 sources)CorticosteroidStart: 87-24-6750Snqooio-40 July, 40 mgStart: 47-75-5115Eykhotr -40 mg May, 40 mg Problems Active Problems Problem ClassificationProblemDateDocumented DateEpisodic/ChronicAcute and chronic tonsillitis (2 sources)Chronic disease of tonsils AND/OR adenoids; Translations: [Other chronic diseases of tonsils and adenoids]ChronicAcute bronchitis (4 sources)Acute bronchitis; Translations: [Acute bronchitis, unspecified]Onset: 61-85-9437OsslqhqlDowecppb reactions (3 sources)Urticaria; Translations: [Unspecified urticaria]EpisodicAnxiety disorders (16 sources)Generalized anxiety disorder; Translations: [Generalized anxiety disorder]ChronicAsthma (20 sources)Asthma; Translations: [Mild persistent asthma]Onset: 05-06-2014 82-69-3157SxvqnzlGcylav (1 source)Asthma; Translations: [Asthma, unspecified, unspecified status]Onset: 96-01-0367Pskfqhd tract disease (4 sources)Postcholecystectomy syndrome; 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]Onset: 32-16-9534KunvkwpsTucogork (20 sources)Bilateral cataracts; Translations: [Artificial lens present]Onset: [id number] obstructive pulmonary disease and bronchiectasis (1 source)Bronchitis, not specified as acute or chronicEpisodicDeficiency and other anemia (10 sources)Iron deficiency anemia due to blood loss; Translations: [Iron deficiency anemia secondary to blood loss (chronic)]32-64-8036SrnckroTeesgxtyab and other anemia (3 sources)Iron deficiency anemia secondary to blood loss (chronic); Translations: [Iron deficiency anemia dueto chronic blood loss]Onset: 12-27-2023 ChronicDeficiency and other anemia (2 sources)Anemia due to chronic blood loss; Translations: [Iron deficiency anemia secondary to blood loss (chronic)]Onset: 16-50-2531FngdhluRokpiubmsq and other anemia (1 source)Anemia, unspecifiedEpisodicDeficiency and other anemia (5 sources)Iron deficiency anemia secondary to inadequate dietary iron intake; Translations: [Other iron deficiency anemias]EpisodicDeficiency and other anemia (2 sources)Other iron deficiency anemiasEpisodicDeficiency and other anemia (3 sources)Iron deficiency anemia; Translations: [Iron deficiency anemia, unspecified]Onset: 52-77-9516BssvtsqhPfpmxxdblu and other anemia (3 sources)Anemia; Translations: [Anemia, unspecified]Onset: 15-38-0045Wtkdegve Deficiency and other anemia (1 source)Iron deficiency anemia, unspecified; Translations: [Iron deficiency anemia, unspecified]42-47-4216EfxedupwAttskxgy of white blood cells (17 sources)Familial eosinophilia; 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]Onset: 427075-14-6521FjddxmsKhtjlrpfv of lipid metabolism (20 sources)Hyperlipidemia; Translations: [Pure hypercholesterolemia, unspecified]Onset: 862354-89-7257UfsxwzpGrampqirb of teeth and jaw (2 sources)Periapical abscess without sinus tract; Translations: [Periapical abscess without sinus]EpisodicDiverticulosis and diverticulitis (3 sources)Diverticula of intestine; Translations: [Diverticulosis of large intestine without perforation or abscess without bleeding]Onset: 05-14-2023 ChronicEsophageal disorders (20 sources)Gastroesophageal reflux disease; Translations: [Esophageal reflux finding]Onset: 652202-75-7922KxnjtwbInpiiahqa hypertension (20 sources)Elevated blood pressure; Translations: [Essential (primary) hypertension]Onset: 368406-72-5567WoyyqsiYmdazqd on above:Problem List clean-up per request of Phys. EHR CmteFracture of lower limb (14 sources)Displaced fracture of fifth metatarsal bone, right foot, subsequent encounter for fracture with routine healing; Translations: [Displaced fracture of fifth metatarsal bone, right foot, initial encounter for closed fracture] Onset: 76-41-1177XtfezpugZntardvkh and duodenitis (3 sources)Gastritis; Translations: [Other gastritis without bleeding]Onset: 62-50-6020NqxtvwjvEvwhbovqiiepk symptoms and ill-defined conditions (20 sources)Mixed incontinence; Translations: [Incontinence]Onset: 12-01-2021 ChronicHeadache; including migraine (20 sources)Tension-type headache; Translations: [Tension-type headache, unspecified, not intractable]Onset: 01-12-2016 Resolved: 755769-98-0353FjjwilcQrvgixi on above:Problem List clean-up per request of Phys. ALISON AdameHemorrhoids (2 sources)Hemorrhoids; Translations: [Other hemorrhoids]Onset: 05-30-2023 EpisodicInflammation; infection of eye (except that caused by tuberculosis or sexually transmitteddisease) (17 sources)Keratoconjunctivitis sicca; Translations: [Keratoconjunctivitis sicca, not specified as Sjogren's, bilateral]Onset: hronic Intestinal obstruction without hernia (7 sources)Stricture of intestine; Translations: [Other intestinal obstruction unspecified as to partial versus complete obstruction]Onset: 31-69-5064Prnxsmne Joint disorders and dislocations; trauma-related (2 sources)Disorder of right patellofemoral joint; Translations: [Patellofemoral disorders, right knee]Onset: 57-50-3697QmshgzqQkbtwjbwsfetw mental health disorders (2 sources)Primary insomnia; Translations: [Primary insomnia]ChronicNausea and vomiting (4 sources)Nausea; Translations: [Nausea]Onset: 64-18-4480HrimjqchDhqahtvyj of unspecified nature or uncertain behavior (2 sources)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; Translations: [Neoplasm of unspecified behavior of other genitourinary organ]Onset: 97-68-8101RzyxoitcOltmobaanroju gastroenteritis (4 sources)Noninfectious enteritis; Translations: [Noninfective gastroenteritis and colitis, unspecified]Onset: 83-39-6682PhvcpwdhCwvfbuxwgnvt breast conditions (15 sources)Fibrocystic disease of breast; Translations: [Diffuse cystic mastopathy of unspecified breast]Onset: 660851-08-7155FnmkznxMtxrxjadmsy deficiencies (16 sources)Vitamin D deficiency; Translations: [Vitamin D deficiency, unspecified]ChronicOsteoarthritis (20 sources)Arthritis of acromioclavicular joint; Translations: [Primary osteoarthritis, right shoulder]Onset: 827109-42-2954KopkuayMdihdshqtzbz (20 sources)Age-related osteoporosis without current pathological fracture; Translations: [Primary osteoporosis]Onset: 23-21-7756ItchdkiKsioh acquired deformities (15 sources)Equinus contracture of the ankle; Translations: [Contracture, right ankle]Onset: 523711-19-2000EwabaxvDkugx aftercare (1 source)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; Translations: [[facility] CURRENT USE OF ASPIRIN]Onset: 48-50-1398YtxwufhnAotye aftercare (3 sources)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; Translations: [OTH BAFFLE MOUNTER CURRENT DRUG THERAPY]Onset: 29-62-2394CjfxedsoUrvhn aftercare (1 source)Long-term current use of drug therapy; Translations: [Other penitentiary (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 therapy]EpisodicOther bone disease and musculoskeletal deformities (2 sources)Other specified disorders of bone density and structure, left thigh; Translations: [Other specifieddisorders of bone density and structure, left thigh]EpisodicOther connective tissue disease (20 sources)Supraspinatus tear; Translations: [Unspecified rotator cuff tear or rupture of left shoulder, not specified as traumatic]EpisodicOther connective tissue disease (2 sources)Unspecified rotator cuff tear or rupture of left shoulder, not specified as traumaticOnset: 10-10-2021 Resolved: 29-19-8674IsufhigdTbmyh connective tissue disease (2 sources)Prepatellar bursitis of left knee; Translations: [Prepatellar bursitis, left knee]EpisodicOther diseases of bladder and urethra (8 sources)Urethral intrinsic sphincter deficiency; Translations: [Intrinsic sphincter deficiency (ISD)]Onset: 79-38-4180ZgdumlugCpgwh diseases of kidney and ureters (1 source)Vesicoureteric reflux; Translations: [Vesicoureteral-reflux, unspecified]Onset: 95-10-2915MzgxiykwCvqrd disorders of stomach and duodenum (20 sources)Stricture of duodenum; Translations: [Obstruction of duodenum]Onset: 242197-91-0020QsarhanAcxcj gastrointestinal disorders (2 sources)Irritable bowel syndrome characterized by constipation; Translations: [Irritable bowel syndrome with constipation]ChronicOther gastrointestinal disorders (1 source)Oropharyngeal dysphagia; Translations: [Dysphagia, oropharyngeal phase]EpisodicOther gastrointestinal disorders (1 source)Dysphagia, oropharyngeal phase; Translations: [Dysphagia, oropharyngeal phase]EpisodicOther gastrointestinal disorders (2 sources)H/O: gastrointestinal disease; Translations: [Personal history of other diseases of the digestive system]Onset: 60-71-0742HjdgtormJawrf gastrointestinal disorders (1 source)Non-steroidal anti-inflammatory drug-induced enteropathy; Translations: [Disease of intestine, unspecified]92-82-3466JdnbjpdeXdyvo inflammatory condition of skin (1 source)Seborrheic dermatitis; Translations: [Seborrheic dermatitis, unspecified]EpisodicOther inflammatory condition of skin (1 source)Seborrheic dermatitis, unspecified; Translations: [Seborrheic dermatitis, unspecified]EpisodicOther injuries and conditions due to external causes (1 source)History of fall; Translations: [History of falling]EpisodicOther injuries and conditions due to external causes (1 source)History of falling; Translations: [History of falling]EpisodicOther lower respiratory disease (15 sources)Post-inflammatory pulmonary fibrosis; Translations: [Pulmonary fibrosis, unspecified]Onset: 296501-65-3573HiillnaWdyca lower respiratory disease (1 source)Personal history of pneumonia (recurrent); Translations: [PERSONAL HX OF PNEUMONIA RECURRENT]Onset: 50-67-6949ZdsvckvmTjpyx nervous system disorders (20 sources)Chronic pain; Translations: [Other chronic pain]ChronicOther non- traumatic joint disorders (2 sources)Pain in left shoulderOnset: 10-10-2021 Resolved: 25-19-8523OdqukwklKbmsw nutritional; endocrine; and metabolic disorders (1 source)Overweight; Translations: [Overweight]EpisodicOther nutritional; endocrine; and metabolic disorders (1 source)Overweight; Translations: [Overweight]EpisodicOther skin disorders (17 sources)Lichen sclerosus et atrophicus; Translations: [Circumscribed scleroderma]Onset: 461685-78-2981DymuofeEafff upper respiratory disease (20 sources)Allergic rhinitis due to pollen; Translations: [Allergic rhinitis due to pollen]Onset: 433742-56-0126OmchwudOszmk upper respiratory disease (2 sources)Seasonal allergic rhinitis; Translations: [Other seasonal allergic rhinitis]Onset: 92-06-6725AnfgnbtZwcqm upper respiratory disease (13 sources)Allergic rhinitis; Translations: [Allergic rhinitis, unspecified] 32-06-5601LjnxqwpZfngb upper respiratory disease (1 source)Allergic rhinitis, unspecified; Translations: [Allergic rhinitis, unspecified]ChronicOther upper respiratory disease (1 source)Allergic rhinitis due to pollenChronicOther upper respiratory disease (3 sources)Other allergic rhinitisChronicOther upper respiratory disease (2 sources)Dysphonia; Translations: [Dysphonia]EpisodicOther upper respiratory infections (20 sources)Chronic maxillary sinusitis; Translations: [Chronic maxillary sinusitis]Onset: 648667-63-8101CizkvtxEchmc upper respiratory infections (8 sources)Acute maxillary sinusitis; Translations: [Acute recurrent maxillary sinusitis]Onset: 00-02-5794BcytdqafUbunjn media and related conditions (4 sources)Eustachian tube disorder; Translations: [Other specified disorders of Eustachian tube, unspecified ear]EpisodicPoisoning by other medications and drugs (4 sources)Non-steroidal anti-inflammatory drug adverse reaction; Translations: [Adverse effect of other nonsteroidal anti-inflammatory drugs [NSAID], initial encounter]Onset: 542622-24-9167BhnlvgcxOpkgcbsv enteritis and ulcerative colitis (15 sources)Ulcerative colitis; Translations: [Ulcerative colitis, unspecified, without complications]Onset: 972148-33-6001WvghdciQpetwqnp codes; unclassified (1 source)Acquired absence of other specified parts of digestive tract; Translations: [ACQ ABSENCE OTH PART DIGESTV TRACT]Onset: 98-83-0948Ghvksywe Residual codes; unclassified (1 source)Asymptomatic menopausal stateEpisodicResidual codes; unclassified (2 sources)Postmenopausal state; Translations: [Asymptomatic menopausal state] 10-71-6808ZhfdapyrEtksauvw codes; unclassified (3 sources)Acquired absence of organ; Translations: [Acquired absence of other specified parts of digestive tract]Onset: 06-06-1823HqnpvyzqAgivhntulvh; intervertebral disc disorders; other back problems (20 sources)Cervical spondylosis; Translations: [Spondylosis without myelopathy or radiculopathy, cervical region]Onset: 020979-08-6979FwybedmOjuvjrkyltl; intervertebral disc disorders; other back problems (20 sources)Cervico-occipital neuralgia; Translations: [Occipital neuralgia] 31-66-2303ShfworjdOulqter and strains (12 sources)Strain of unspecified muscle, fascia and tendon at shoulder and upper arm level, left arm, initial encounter; Translations: [Strain of muscle and tendon of back wall of thorax, initial encounter]Onset: 74-08-1038Bsyaycpd Superficial injury; contusion (2 sources)Contusion of left knee; Translations: [Contusion of left knee, initial encounter]EpisodicSystemic lupus erythematosus and connective tissue disorders (1 source)Autoimmune disease; Translations: [Autoimmune disease, not elsewhere classified]Onset: 64-36-6328DnglltaCtgdlea disorders (20 sources)Autoimmune hypothyroidism; 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 EHR CmteUnclassified (20 sources)Asymptomatic microscopic axnlugaaz09-21-0441Ffrkvnobqsvi (20 sources)Finding of sensation of ciwzouh45-48-9398Zxyikareuvos (1 source)CONTACT W/AND (SUSP) EXPOS COVID-19; Translations: [CONTACT W/AND (SUSP) EXPOS COVID-19]Onset: 67-64-7704Btghanefdjlg (2 sources)Exposure to acute respiratory syndrome coronavirus 2; Translations: [Contact with and (suspected) exposure to COVID-19]Unclassified (1 source)Long-term current use of drug therapy; Translations: [Long-term (current) use of other medications]Onset: 93-44-7641Qwhitntvxsfh (1 source)Autoimmune disease, not elsewhere classified; Translations: [Autoimmune disease, not elsewhere classified]Onset: 21-26-8526Llrahprifqck (1 source)Unspecified urticaria; Translations: [Unspecified urticaria] Unclassified (1 source)Other specified disorders of rotator cuff syndrome of shoulder and allied disorders; Translations: [Other specified disorders of rotator cuff syndrome of shoulder and allied disorders]Onset: 85-00-2425Yvkjmtbqzknn (1 source)Long-term (current) use of other medications; Translations: [Long-term (current) use of other medications]Onset: 15-97-9023Lhjjynpydfnn (1 source)Bacterial infection, unspecified, in conditions classified elsewhere and of unspecified site; Translations: [Bacterial infection, unspecified, in conditions classified elsewhere and of unspecified site]Onset: 08-08-2015 Unclassified (1 source)Pain in joint, ankle and foot; Translations: [Pain in joint, ankle and foot]Onset: 27-40-3585Aliasmcunqgn (13 sources)Stricture of small bhisryroe08-22-5817Lmggppwtqtmb (2 sources)New Patient Visit; Translations: [New Patient Visit]Onset: 09-14-2023 Unclassified (5 sources)Lesion of unxweuh13-75-0692 Past or Other Problems Problem ClassificationProblemDateDocumented DateEpisodic/ChronicAbdominal pain (20 sources)Epigastric pain; Translations: [Epigastric pain]Onset: 07-25-2023 99-38-5566CdjodzklVjxoqsfgt infection; unspecified site (1 source)Bacterial infectious disease; Translations: [Bacterial infection, unspecified, in conditions classified elsewhere and of unspecified site]Onset: 44-59-7501OtehqcicK Codes: Natural/environment (1 source)Overexertion from prolonged static or awkward postures, initial encounter; Translations: [OVEREXERTPROLNG STAT/AWK PST INIT]Onset: 03-13-2022 EpisodicEsophageal disorders (6 sources)Esophageal disorders; Translations: [Gastro-esophageal reflux disease with esophagitis, without bleeding]Gastroduodenal ulcer (except hemorrhage) (20 sources)H/O: gastric ulcer; Translations: [H/O: peptic ulcer]Onset: 12-10-2013 Resolved: 250778-08-2889GbfjzwarJxxxjoeperpiz symptoms and ill-defined conditions (20 sources)Sensation as if bladder still full; Translations: [Feeling of incomplete bladder emptying]Onset: 36-15-9316XhasyxjyWzprodwh; including migraine (2 sources)Headache; Translations: [Headache]Onset: 55-39-5073Fhhjoyvy Inflammation; infection of eye (except that caused by tuberculosis or sexually transmitteddisease) (17 sources)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; Translations: [Unspecified blepharitis right eye, upper and lower eyelids]Onset: 544487-28-1435PiqgojmxVmskqqzose disorders (1 source)Hormone replacement therapy; Translations: [HORMONE REPLACEMENT THERAPY]Onset: 09-45-8940UampnomjOkzyfffqmdm chest pain (2 sources)Chest pain; Translations: [Other chest pain]Onset: 20-56-4517Fiqeyzdr Other and unspecified benign neoplasm (20 sources)History of polyp of colon; Translations: [History of colonic polyps] Onset: 066892-79-8846VxlnmqceWthnd bone disease and musculoskeletal deformities (20 sources)Osteopenia; Translations: [Other specified disorders of bone density and structure, unspecified site]Onset: 147921-92-5160XawmpqvpFzaxw bone disease and musculoskeletal deformities (1 source)Bone density finding; Translations: [Other specified disorders of bone density and structure, unspecified site]Onset: 67-88-1622VskxkvubJzkzb bone disease and musculoskeletal deformities (1 source)Other specified disorders of bone density and structure, unspecified site; Translations: [Oth disrdof bone density and structure, unspecified site] Onset: 73-60-6384SkvtczdnZpjgp connective tissue disease (3 sources)Pain in right foot; Translations: [PAIN IN RIGHT FOOT]Onset: 31-57-2161PaqavwfgJqzkj connective tissue disease (1 source)Disorder of rotator cuff; Translations: [Other specified disorders of rotator cuff syndrome of shoulder and allied disorders]Onset: 13-67-9636Kwcosatc Other connective tissue disease (1 source)Plantar fascial fibromatosis; Translations: [Plantar fascial fibromatosis]Onset: 32-22-9719CmvnsgxjIiloo connective tissue disease (2 sources)Achilles bursitis; Translations: [Achilles bursitis or tendinitis] Onset: 81-95-1451LtuxkhxeCrlxq connective tissue disease (1 source)Plantar fascial fibromatosis; Translations: [Plantar fascial fibromatosis]Onset: 08-89-9691WgjoujjoHwoyr connective tissue disease (20 sources)Right achilles tendonitis; Translations: [Achilles tendinitis, right leg]Onset: 974529-76-1835VirzdamoEkozt diseases of bladder and urethra (20 sources)Urethral caruncle; Translations: [Urethral caruncle]Onset: 54-98-2606OtmjpzbcYjaeb gastrointestinal disorders (20 sources)Abdominal bloating; Translations: [Abdominal distension (gaseous)] Onset: 464457-82-4299JfalljobYjvdb gastrointestinal disorders (15 sources)Dysphagia; Translations: [Dysphagia, pharyngoesophageal phase]Onset: 159889-36-6889HagnpnniCtvfq injuries and conditions due to external causes (15 sources)Aspiration into respiratory tract; Translations: [Unspecified foreign body in respiratory tract, part unspecified causing other injury, initial encounter]Onset: 366695-94-1654WtbscahaJwzvq lower respiratory disease (20 sources)Chronic cough; Translations: [Chronic cough]Onset: 07-02-2023 EpisodicOther lower respiratory disease (15 sources)Lung field abnormal; Translations: [Other nonspecific abnormal finding of lung field]Onset: 06-27-2023 Resolved: 405544-21-8144XtnxvuvkClcxc nervous system disorders (2 sources)Ataxic gait; Translations: [Ataxic gait]Onset: 80-17-8206Mzqkugzg Other non-traumatic joint disorders (1 source)Arthralgia of the upper arm; Translations: [Pain in unspecified elbow] Onset: 83-08-8546XxopylwqWhbfr non-traumatic joint disorders (1 source)Shoulder joint pain; Translations: [Pain in right shoulder]Onset: 77-58-1173JpoixqayBbzxb non-traumatic joint disorders (1 source)Arthralgia of the ankle and/or foot; Translations: [Pain in joint, ankle and foot]Onset: 53-85-0729NuvcckqpZtnap non-traumatic joint disorders (1 source)Pain in unspecified elbow; Translations: [Pain in unspecified elbow] Onset: 32-73-7737TunkydwlNdsue non-traumatic joint disorders (1 source)Pain in right shoulder; Translations: [Pain in right shoulder]Onset: 08-61-1921AkzltdjrIquvk nutritional; endocrine; and metabolic disorders (6 sources)Body mass index 25-29 - overweight; Translations: [Body mass index 28.0-28.9, adult]Onset: 71-35-8049PhuhxtfnQoltz screening for suspected conditions (not mental disorders or infectious disease) (20 sources)Encounter for screening mammogram for malignant neoplasm of breast; Translations: [Abnormal findings on diagnostic imaging of skull and head]Onset: 64-39-1893CjhbiuvyPfmpz skin disorders (2 sources)Disorder of skin and/or subcutaneous tissue; Translations: [Disorder of the skin and subcutaneous tissue, unspecified]Onset: 37-26-9210ZeafvjdfCvmhu upper respiratory disease (15 sources)Chronic hoarseness; Translations: [Dysphonia]Onset: 06-27-2023 99-68-3742VzsurueyMvkkm upper respiratory disease (15 sources)Stridor; Translations: [Stridor]Onset: 166090-03-6163Mcmltvqt Residual codes; unclassified (1 source)Family history of malignant neoplasm of breast; Translations: [FAMILY HX MALIG NEOPLASM OF BREAST]Onset: 00-32-3887YowebyzlEdnwoxjm codes; unclassified (1 source)Family history of malignant neoplasm of other organs or systems; Translations: [FAM HX MALIG NEOPLASM OTH ORGN/SYS]Onset: 56-32-6756Rafozycq Unclassified (1 source)Onset: 344966-58-3825Nntftps tract infections (20 sources)Urinary tract infectious disease; Translations: [Urinary tract infection, site not specified]Onset: 12-01-2021 Resolved: 27-96-9782Hkiryetf Results Test NameValueInterpretationReference RangeFacilityAmbulatory Visit Summaryon 17-94-0135Ejolngbqzq Visit SummaryAmbulatory Visit Summary MUNIRA CHESTER :1950 Visit Date:12/10/2024 Ambulatory [...] spray) fluticasone nasal (fluticasone 0.05 mg/inh Nasal [place]) fluticasone-vilanterol (Breo Ellipta 200 mcg-25 mcg/inh inhalation powder) levothyroxine (levothyroxine 100 mcg (0.1 mg) Tab) montelukast (montelukast 10 mg Tab) multivitamin (Multi Vitamins oral tablet) nitrofurantoin (Macrobid 100 mg Cap) orphenadrine (orphenadrine compounding powder) pantoprazole (Pantoprazole [address] Tab) Procedures Performed Cystoscopy (06/02/2024), Cystoscopy (04/07/2024), Colonoscopy (05/22/2023), Esophagogastroduodenoscopy (05/22/2023), Colonoscopy (09/07/2019), EGD - Esophagogastroduodenoscopy (09/07/2019), Colonoscopy (01/16/2015), EGD - Esophagogastroduodenoscopy (01/16/2015), EGD - Esophagogastroduodenoscopy (03/2011), EGD - Esophagogastroduodenoscopy (05/17/2011), Laparoscopic cholecystectomy (06/16/2010),Colonoscopy (01/16/2010), Cataracts, section, Dilation and curettage, Foot, [...] aerosol) 2 Puffs Inhalation Every 4 hours asneeded for Shortness of breath or wheezing Contact [...] fluticasone nasal (fluticasone 0.05 mg/ inh Nasal [place]) 2 Sprays Nasal Inhalation Every day Contact [...] Tablets By Mouth Every day Contact pres (morecontent not included)...[facility] Gastroenterology Office/Clinic Noteon 41-67-6979Saljirafsjcssylp Office/Clinic NoteGastroenterology Office/Clinic Note Chief Complaint Patient would like [...] treated with z-pack for GI bacteria at [place] back pain Review of Systems PHQ Score [...] day(s), # 112 tab(s), Refills(s) 0, Pharmacy: [facility], 158, cm, 12/10/24 8:44:00 EDT, Height/Length Dosing, 76.6, kg, 12/10/24 8:44:00 EDT, Weight Dosing Current tobacco non-user 1036F Most recent diastolic blood pressure <80 mm Hg 3078F Systolic BP <130 mm Hg (Most Recent) 3074F 3. 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) Ordered: sucralfate, 1 gm = 1 tab(s), Oral, QID, X 28 day(s), # 112 tab(s), Refills(s) 0, Pharmacy: [facility], 158, cm, 12/10/24 8:44:00 EDT, [...] day(s), # 112 tab(s), Refills(s) 0, Pharmacy: [facility], 158, cm, 12/10/24 8:44:00 EDT, [...] # 112 tab(s), Refills(s) 0, Pharmacy: [facility], 158, cm, 12/10/24 8:44:00 EDT, [...] medications other than NS (more content not included)...[facility] HospitalComment on above: Result Comment: Electronically Signed By: Tho VILLEGAS, Del Duckworth\.br\Date and Time Signed: 12/10/2508:09 EDTBasophils Auto (Bld) [#/Vol]Ordered By: Abe Mojica on 87-62-5231Pbuamlguj (Bld) [#/Vol]0.0 10 3/uL0.0-0.1FFlower HospitalBasophils/100 WBC Auto (Bld)Ordered By: Abe Mojica on 27-33-8743Csyxtuqcj/100 WBC (Bld)0.2 %0.2-2.0[facility] Eosinophils/100 WBC Auto (Bld)Ordered By: Abe Mojica on 10-02-2024 Eosinophils/100 WBC (Bld)1.1 %0.9-7.0[facility] Erythrocyte distribution width Auto (RBC) [Ratio]Ordered By: Abe Mojica on 34-27-0937Xvzhyqmgsab distribution width (RBC) [Ratio]12.5 %11.0-15.0[facility] CenterGlomerular filtration rate (GFR) estimation in non- AmericanOrdered By: Abe Mojica on 14-81-0429VLJ/1.73 sq M.predicted among non-blacks MDRD (S/P/Bld) [Vol rate/Area]mL/min/{1.73_m2}>=60 mL/min/1.73m 2FFlower HospitalHematocrit Auto (Bld) [Volume fraction]Ordered By: Abe Mojica on 35-01-0470Mmntgnysyr (Bld) [Volume fraction]37.4 %36.0-48.0 [facility] CenterHemoglobin [Mass/volume] in BloodOrdered By: Abe Mojica on 03-34-3605Ubqlpchrpe (Bld) [Mass/Vol]12.8 g/dL12.0-16.0 [facility] CenterLaboratory - Chemistry and Chemistry - challengeOrdered By: Abe Mojica on 43-92-6783Ryrwhvn [Mass/Vol]9.0 mg/dL 8.5-10.1FFlower HospitalChloride [Moles/Vol]106 mmol/L98-107 [facility] CenterCO2 [Moles/Vol]23.5 mmol/L21.0-32.0[facility] CenterCreatinine [Mass/Vol]0.81 mg/dL0.55-1.02[facility] CenterGFR/1.73 sq M.predicted MDRD (S/P/Bld) [Vol rate/Area] mL/min/{1.73_m2}>=60 mL/min/1.73m 2FFlower HospitalGlucose [Mass/Vol]99 mg/tL37-535EckltzpdvCincinnati Va Medical CenterPotassium [Moles/Vol] 3.5 mmol/L3.5-5.1FMadison Healthodium [Moles/Vol]143 mmol/L 136-145[facility] CenterUrea nitrogen [Mass/Vol]12.0 mg/dL 7.0-18.0[facility] CenterUrea nitrogen/Creatinine [Mass ratio] 14.8 mg/mgCincinnati Va Medical CenterLaboratory - Hematology and Cell countsOrdered By: Abe Mojica on 95-78-8962Mbemwyfw granulocytes/100 WBC (Bld) 0.4 %0.0-0.5FFlower HospitalLeukocytes [#/volume] corrected for nucleated erythrocytes in Blood by Automated counOrdered By: Abe Mojica on 45-76-6640SRK corrected for nucl RBC Auto (Bld) [#/Vol]9.6 10 3/uL4.0-11.0 [facility] CenterLymphocytes Auto (Bld) [#/Vol]Ordered By: Abe Mojica on 29-57-1836Hpfxjlohevw (Bld) [#/Vol]1.1 10 3/uLLow1.2-3.8 [facility] CenterLymphocytes/100 WBC Auto (Bld)Ordered By: Abe Mojica on 53-89-2663Lnejifdpfdy/100 WBC (Bld)11.2 %Low20.5-60.0[facility] Auto (RBC) [Entitic mass]Ordered By: Abe Mojica on 71-78-6761YNF (RBC) [Entitic mass]32.2 pg26.7-34.0[facility] CenterMCHC Auto (RBC) [Mass/Vol]Ordered By: Abe Mojica on 67-53-9233ZYES (RBC) [Mass/Vol]34.2 g/dL29.9-35.2FFlower HospitalMCV Auto (RBC) [Entitic vol]Ordered By: Abe Mojica on 23-02-6817XIZ (RBC) [Entitic vol]94.2 fL81.0-99.0[facility] CenterMonocytes Auto (Bld) [#/Vol]Ordered By: Abe Mojica on 14-20-7064Biszkkqdl (Bld) [#/Vol]1.1 10 3/uL High0.3-0.8[facility] CenterMonocytes/100 WBC Auto (Bld)Ordered By: Abe Mojica on 93-05-3270Azxzwmmpb/100 WBC (Bld)11.0 %1.7-12.0[facility] CenterNeutrophils Auto (Bld) [#/Vol]Ordered By: Abe Mojica on 50-87-9266Uqmucuuocqu (Bld) [#/Vol]7.3 10 3/uLHigh1.4-6.5FFlower HospitalNeutrophils/100 WBC Auto (Bld)Ordered By: Abe Mojica on 27-79-9358Tvbmdiifvre/100 WBC (Bld)76.1 %High43.0-75.0[facility] CenterNo Panel InformationOrdered By: Abe Mojica on 20-98-8277Nzmvfaomtqt difficile (PCR)(LAB)NegativeCincinnati Va Medical CenterEosinophils # (Auto)0.1 10 3/uL0.0-0.7FFlower HospitalImmature Granulocyte # (Auto)0.04 10 3/uLHigh0.00-0.03[facility] CenterPlatelet mean volume Auto (Bld) [Entitic vol]Ordered By: Abe Mojica on 89-96-1960Ouvcwjyn mean volume (Bld) [Entitic vol]9.6 fL9.5-13.5FFlower Hospital Platelets Auto (Bld) [#/Vol]Ordered By: Abe Mojica on 62-13-0870Rfacduico (Bld) [#/Vol]299 10 3/iK482-066RhessfrnlCincinnati Va Medical CenterRBC Auto (Bld) [#/Vol]Ordered By: Abe Mojica on 72-88-4695ZND (Bld) [#/Vol]3.97 10 6/uLLow 4.20-5.40Providence Hospitalerum or plasma anion gap determinationOrdered By: Abe Mojica on 59-29-4546Sqkev gap [Moles/Vol]17.0 mmol/LFFlower HospitalAmbulatory Visit Summaryon 08-05-2024 Ambulatory Visit SummaryAmbulatory Visit Summary MUNIRA CHESTER :1950 Visit Date:08/05/2024 Ambulatory [...] spray) fluticasone nasal (fluticasone 0.05 mg/inh Nasal [place]) fluticasone-vilanterol (Breo Ellipta 200 mcg-25 mcg/inh inhalation powder) levothyroxine (levothyroxine 100 mcg (0.1 mg) Tab) montelukast (montelukast 10 mg Tab) multivitamin (Multi Vitamins oral tablet) nitrofurantoin (Macrobid 100 mg Cap) orphenadrine (orphenadrine compounding powder) pantoprazole (Pantoprazole [address] Tab) Procedures Performed Cystoscopy (06/02/2024), Cystoscopy (04/07/2024), Colonoscopy (05/22/2023), Esophagogastroduodenoscopy (05/22/2023), Colonoscopy (09/07/2019), EGD - Esophagogastroduodenoscopy (09/07/2019), Colonoscopy (01/16/2015), EGD - Esophagogastroduodenoscopy (01/16/2015), EGD - Esophagogastroduodenoscopy (03/2011), EGD - Esophagogastroduodenoscopy (05/17/2011), Laparoscopic cholecystectomy (06/16/2010),Colonoscopy (01/16/2010), Cataracts, section, Dilation and curettage, Foot, [...] cholecystectomy Post-cholecystectomy syndrome Refills: 3 Pickup at [facility] Unchanged albuterol (ProAir HFA 90 mcg/ inh inhalation aerosol) 2 Puffs Inhalation Every 4 hours asneeded for Shortness of breath or wheezing Contact [...] fluticasone nasal (fluticasone 0.05 mg/ inh Nasal [place]) 2 Sprays Nasal Inhalation Every day Contact [...] By Mouth As Directed take 1 tablet within1 hour before or after (more content not included)...[facility]/Cl[facility] Noteon 08-05-2024 Gastroenterology Office/Clinic NoteGastroenterology Office/Clinic Note Chief Complaint follow up to [...] treat small bowel stricture. Options will be toobtain CT enterography but she is hesitant given [...] Daily, # 30 EA, Refills(s) 3, Pharmacy: [facility], 158, cm, 08/05/24 14:23:00 EDT, Height/Length Dosing, 77.2, kg, 08/05/24 14:23:00 EDT, Weight Dosing 2. Hx of cholecystectomy, (Z90.49: Acquired absence of other specified parts of digestive tract)S/Pcholecystectomy Ordered: cholestyramine, = 1 packet(s), Oral, Daily, # 30 EA, Refills(s) 3, Pharmacy: [facility], 158, cm, 08/05/24 14:23:00 EDT, Height/Length Dosing, 77.2, kg, 08/05/24 14:23:00 EDT, Weight Dosing 3. Adverse reaction to NSAIDs (T39.395A: Adverse effect of other nonsteroidal anti-inflammatory drugs [NSAID], initial encounter) Ordered: cholestyramine, = 1 packet(s), Oral, Daily, # 30 EA, Refills(s) 3, Pharmacy: [facility], 158, cm, 08/05/24 14:23:00 EDT, Height/Length Dosing, 77.2, kg, 08/05/24 14:23:00 EDT, Weight Dosing 5. Post-cholecystectomy syndro (more content not included)...[facility] HospitalComment on above:Result Comment: Electronically Signed By: Tho VILLEGAS, Del Duckworth\.br\Date and Time Signed: 08/05/2513:45 EDTReminderson 86-05-6926WkhyhlounNtoxvhygl From: Pat Martinez MA To: [facility] - Reminders/Recalls; Sent: 08/05/2024 13:08:13 EDT Show up: 05/16/2029 13:08:00 EST Subject: Ambulatory Reminder Due Date/Time: 07/13/2029 13:08:00 EDT Reminder/Recall 5 year colon 07/13/24 Dr AlanizOhioHealth Van Wert HospitalANES POSTPROC EVALon 19-00-5179HCOA POSTPROC EVALHNO ID: [id number] Author: LUZ ELENA FRANKLIN MD Service: ? [...] Scheduled Providers: Kasey Fallon MD; Rosaura Marie APRN.IMPROVEMENT AUDITOR; Luz Elena Franklin MD Responsible Provider: Luz [...] July 13, 2024 TIME: 4:28 PM CSN: [id number] County HospitalANES PRE-OPon 30-25-0567FSTV PRE-OPHNO ID: [id number] Author: LUZ ELENA FRANKLIN MD Service: ? Author Type: Physician Type: Anesthesia Preprocedure Evaluation Filed: 07/13/2024 13:38 Note Text: ANESTHESIOLOGY DAY OF SURGERY NOTE : 1950 Procedure Information Date/Time: 07/13/24 1300 Scheduled providers: Kasey Fallon MD; Rosaura Marie APRN.IMPROVEMENT AUDITOR; Luz Elena Franklin MD Procedure: ENTEROSCOPY Location: Gastroenterology Estimated body mass index is 29.23 kg/m? as calculated from the following: Height as of this encounter: 160 cm (5' 3 ). Weight as of this encounter: 74.8 kg (165 lb). Most recent hematocrit and potassium results: No results found for this basename: HCT,HEMATOCRIT,K,POTASSIUM Relevant Problems NEURO-PSYCH (+) Episodic tension-type headache, not intractable I - PHYSICAL EVALUATION AIRWAY Patient intubated: No. Tracheostomy tube not present Mallampati: III. TM distance: >3 FB. Neck ROM: full ROM without neurological symptoms. Mouth opening: adequate. Short neck: no. Thick neck: no Microretrognathia/Micronagthia/Recessed Chin: No DENTAL Dental findings: teeth intact. [...] ORAL) Take by mouth. vit A/vit C/biotin/zinc/copper (ANGP-ZQGY-IEET,VIT A,C-BIOTIN, ORAL) Take by mouth. aspirin 325 [...] (FLONASE) 50 mcg/actuation nasal spray Use 1 [place] in each nostril once daily. atorvastatin (LIPITOR) [...] 48 hours of Surgery/Pr (more content not included)...NormalSelect [facility] Specialty Hospital - TrumbullEnteroscopy Study observation Narrativeon 89-77-6017Kklkrieym ClinicRadiology Study observation (narrative)[facility] HospitalHISTORY PHYSICALon [id number] PHYSICALHNO ID: [id number] Author: KASEY FALLON MD Service: Gastroenterology Author [...] ORAL) Take by mouth. vit A/vit C/biotin/zinc/copper (EEIA-PPTY-PIKH,VIT A,C-BIOTIN, ORAL) Take by mouth. aspirin 325 [...] (FLONASE) 50 mcg/actuation nasal spray Use 1 [place] in each nostril once daily. atorvastatin (LIPITOR) [...] SIGNATURE: Kasey Fallon MD PATIENT NAME: Munira Chetser DATE: 07/13/2024 TIME: [facility] PROOhio[facility] [id number] PROG HNO ID: [id number] Author: LINDA ALVARADO RN Service: ? Author [...] Instructions REFERRAL (RECOMMENDATION): None Electronically Signed By: Hiro SilverioHenry County Hospital NURSING PROGHNO ID: [id number] Author: MARY CALLEJAS RN Service: ? Author [...] By: Mary Callejas RN In Department: GASTROENTEROLOGY NormalSelect Medical Specialty Hospital - TrumbullPathology biopsy report David (Tiss)on 07-13-2024 AP DISCLAIMERNoSuburban Community [facility] on above:Order Comment: Specimen Type: TISSUE SPECIMENOrdering Facility: [facility] Address: [address] [place], [place] [address]Result Comment: Laboratory Developed Test (LDT) Disclaimer: Performance characteristics of immunohistochemical, immunofluorescent, and chromogenic in-situ hybridization tests have been determined by the performing laboratory within [facility]'s [facility] Pathology and Laboratory Medicine Department ([facility], [facility], [facility], [facility], [facility], [facility], or [facility]) in a manner consistent with CLIA requirements. One or more of these tests may not have been cleared or approved by the FDA. [facility] is regulated under CLIA as qualified to perform high- complexity testing. These tests are used for clinical purposes. These should not be regarded asinvestigational or for research. Positive and negative controls stain appropriately.Performed By: #### 60590-3 ####[facility]ORATORYCLIA [id number] [address] LABCLIA [id number] [address]ETCASE REPORTNormOhioHealth Doctors Hospital on above:Order Comment: Specimen Type: TISSUE SPECIMENOrdering Facility: [facility] Address: [address] [place], [place] [address]Result Comment: Surgical Pathology Report Case: [id number] Authorizing Provider: Kasey Fallon MD Collected: 07/13/2024 03:06 PM Ordering Location: Gastroenterology Received: 07/13/2024 06:18 PM Pathologist: Espinoza Sharp MD Specimens: A) - Small Bowel, Ileum, Biopsy, Mid ileal stricture B) - Small Bowel, Ileum, Biopsy, Distal ileal C) - Small Bowel, Terminal Ileum, Biopsy D) - Colon, Hepatic Flexure, PolypPerformed By: #### 75096-6 ####[facility] LABORATORYCLIA [id number] [address] LABCLIA [id number] [address] DIAGNOSISNormal [facility] on above:Order Comment: Specimen Type: TISSUE SPECIMENOrdering Facility: [facility] Address: [address] [place], [place] [address]Result Comment: A. Mid ileal stricture, biopsy: - Small bowel mucosa with ulcer. - Negative for dysplasia or granulomas. B. Ileum, biopsy: - Small bowel mucosa with no significant pathologic changes. C. Terminal ileum, biopsy: - Small bowel mucosa with no significant pathologic changes. D. Hepatic flexure, polypectomy: - Fragments of tubular adenoma. at 1114 EDTPerformed By: #### 90612-9 ####[facility] LABORATORYCLIA [id number] [address] LABCLIA [id number] [address] LABNormalCCleveland Clinic [facility]uclid Hospital on above:Order Comment: Specimen Type: TISSUE SPECIMENOrdering Facility: [facility] Address: [address] [place], [place] [address]Result Comment: Diagnostic interpretation performed at: [facility], [address] [address] CLIA# [id number] Vp Platforms: LIZ Rodriguezerformed By: #### 78609-5 ####[facility]ORATORYCLIA [id number] [address] LABCLIA [id number] [address] AVENUEDES[address]ETGROSS DESCRIPTION NormalSelect Medical Specialty Hospital - TrumbullComment on above:Order Comment: Specimen Type: TISSUE SPECIMENOrdering Facility: [facility] Address: [facility] [address], [place], [place] [address]Result Comment: A. Small Bowel, Ileum, Biopsy Received in [...] in one cassette. Gross examination performed at [facility], [facility] [address] July 13, 2024 10:18 PMPerformed By: #### 70595-1 ####[facility]ORATORYCLIA [id number] [address] LABCLIA [id number] [address]Ambulatory Visit Summaryon [id number] Visit SummaryAmbulatory Visit Summary MUNIRA CHESTER :1950 Visit Date:07/08/2024 Ambulatory [...] spray) fluticasone nasal (fluticasone 0.05 mg/inh Nasal [place]) fluticasone-vilanterol (Breo Ellipta 200 mcg-25 mcg/inh inhalation powder) levothyroxine (levothyroxine 100 mcg (0.1 mg) Tab) montelukast (montelukast 10 mg Tab) multivitamin (Multi Vitamins oral tablet) orphenadrine (orphenadrine compounding powder) pantoprazole (Pantoprazole [address] Tab) Procedures Performed Cystoscopy (06/02/2024), Cystoscopy (04/07/2024), Colonoscopy (05/22/2023), Esophagogastroduodenoscopy (05/22/2023), Colonoscopy (09/07/2019), EGD - Esophagogastroduodenoscopy (09/07/2019), Colonoscopy (01/16/2015), EGD - Esophagogastroduodenoscopy (01/16/2015), EGD - Esophagogastroduodenoscopy (03/2011), EGD - Esophagogastroduodenoscopy (05/17/2011), Laparoscopic cholecystectomy (06/16/2010),Colonoscopy (01/16/2010), Cataracts, section, Dilation and curettage, Foot, Right wrist, Rotator cuff repair, Thyroidectomy, Tubal ligation. Discharge Vitals Height 158 cm Height 62 in Weight 77.0 kg Weight 169.756 lb BMI 30.84 What to do next You Need to Schedule the Following Appointments Follow Up with Dewayne VILLEGAS, RANDAL Arizmendi, URO When: Where: Someone Will Contact You Regarding These Appointments [facility] [place] Ref[place], [place]rology, Dr. Janae Caban at [facility], 04/23/25 9:53:00 EDT, Intrinsic sphincter deficiency (ISD) Medications What How Much When Why Instructions Unchanged estradiol topical (estradiol 0.1 mg/ g Vag Crm) See instructions apply pea sized amount to urethra 2x/ wk Unchanged nitrofurantoin (Macrobid 100 mg Cap) 1 Capsules By Mouth As Directed take 1 tablet within1 hour before or after intercourse to prevent infection. Unchanged albuterol (ProAir HFA 90 mcg/ inh inhalation aerosol) 2 Puffs Inhalation Every 4 hours asneeded for Shortness of breath or wheezing Contact [...] fluticasone nasal (fluticasone 0.05 mg/ inh Nasal [place]) 2 Sprays Nasal Inhalation Every day Contact [...] day Epigastric pain Ab (more content not included)...[facility] HospitalUrology Office/Clinic Noteon [id number] Office/Clinic NoteUrology Office/Clinic Note Chief Complaint F/U with PVR [...] to bedtime and does not notice a difference.Given history of failing multiple treatment plans, I recommend a referral to Dr. Caban for a further workup especially given hx of vaginal mesh removal. Further workup to better distinguish symptoms such as video urodynamics would be helpful, which we do not have locally. Declines medical mgmt to treat UUI/OAB, I'm done trying . -Refer to Dr. Janae Caban at [facility] for further w/up such as video urodynamics (not available here),possible midurethral sling 2. Urethral lesion (N36.9: Urethral [...] coital Macrobid 100mg. Works well when she remembersto take it. -Cont Estrace cream Follow-up With When Contact Information Dewayne VILLEGAS, Asuncion London, URL, URO Additional Instructions: Refer to Dr. Janae Caban at [facility] Patient Education Urinary Incontinence I, Ailyn Aranda, personally scribed for Dr. Buchanan on 07/08/2024 09:53:11. . Documentation recorded by the scribe, Ailyn Aranda, accurately reflects the services(s) I performed and decisions made by me. Authenticated by Dr. Buchanan on 07/08/2024 10:36:35. Problem List/Past Medical History Ongoing Abdominal bloating Acute allergic rhinitis due to pollen Arthritis Asthma Asymptomatic m (more content not included)...[facility] Comment on above:Result Comment: Electronically Signed By: Asuncion Buchanan MD\.br\Date and Time Signed: 07/08/24 10:37EDT\.br\Electronically Co-Signed By: Ailyn Aranda\.br\Date and Time Co-Signed: 07/08/24 09:53 EDTNCIARAING PROG on [id number] PROGHNO ID: [id number] Author: NOEMÍ WILLIAM RN Service: ? Author Type: Registered Nurse Type: Nursing Progress Note Filed: 07/06/2024 13:25 Note Text: Attempted to reach the patient at the contact number that they provided [phone] (home) [phone] (work) . 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 - mv-min/iron/folic/calcium/vitK (WOMEN'S MULTIVITAMIN ORAL) Take by mouth. - vit A/vit C/biotin/zinc/copper (LZOI-HRMI-FVEQ,VIT A,C-BIOTIN, ORAL) Take by mouth. - aspirin [...] (FLONASE) 50 mcg/actuation nasal spray Use 1 [place] in each nostril once daily. - atorvastatin [...] [M*04/11/2016 Encounter Status:Closed by JACQUELINE HONG on 07/01/24[place] Intraoperative Recordon [id number] OR Intraoperative Record Main OR Intraoperative Record IntraOp Document Type FT Summary Primary Physician: Asuncion Buchanan MD Finalized Date/Time: 06/03/24 11:56:15 Pt. Name: MUNIRA CHESTER/Sex: 1950 Female Med Rec #: [id number] Physician: Asuncion Buchanan MD Financial #: [id number] Pt. Type: A Room/Bed: [facility]16 Admit/Disch: 06/02/24 05:52:59 - 06/02/24 [...] Crews RN, Luz Elena Walden Role Performed IMPROVEMENT AUDITOR Surgeon - Primary Educational Interpreter - Primary Time In 06/02/24 08:11:00 06/02/24 [...] 06/02/24 08:34:00 Procedure CYSTOSCOPY(.) Comments ALF LOPEZ, PRECISION HONER STUDENT FOLLOWING Last Modified By: Mars KILLIAN, [...] Asuncion London, Given Participants Cyrus Cottrell CRNA, Mars KILLIAN, Meredith uDke Kendall R Time Out Complete 06/02/24 08:22:00 [...] and tissue Entry 1 Skin Integrity Intact, [place], Warm, & Skin Abnormality Yes Dry, Red [...] at Left Leg Posi (more content not included)...[facility] HospitalDischarge Instructionson 06-02-2024 Discharge InstructionsDischarge Instructions MUNIRA CHESTER :1950 Visit Date:06/02/2024 Inpatient Discharge [...] spray) fluticasone nasal (fluticasone 0.05 mg/inh Nasal [place]) fluticasone-vilanterol (Breo Ellipta 200 mcg-25 mcg/inh inhalation powder) levothyroxine (levothyroxine 100 mcg (0.1 mg) Tab) montelukast (montelukast 10 mg Tab) multivitamin (Multi Vitamins oral tablet) nitrofurantoin (Macrobid 100 mg Cap) orphenadrine (orphenadrine compounding powder) pantoprazole (Pantoprazole [address] Tab) Procedure History Cystoscopy (04/07/2024), Colonoscopy (05/22/2023), Esophagogastroduodenoscopy (05/22/2023), Colonoscopy (09/07/2019), EGD - Esophagogastroduodenoscopy (09/07/2019), Colonoscopy (01/16/2015), EGD - Esophagogastroduodenoscopy (01/16/2015), EGD - Esophagogastroduodenoscopy (08/17/2011), EGD - Esophagog astroduodenoscopy (05/17/2011), Laparoscopic cholecystectomy (06/16/2010), Colonoscopy (01/16/2010), Cataracts, [...] up in 1 month for PVR Where: [facility] [address], [address] [address]- [phone] Business (1) Medications What How Much When Why Instructions Next Dose New cephalexin (Keflex 500 mg Cap) 1 Capsules By Mouth Every 12 hours Duration: 4 Days Post procedure Pickup at [facility] Unchanged albuterol (ProAir HFA 90 mcg/ inh inhalation aerosol) 2 Puffs Inhalation Every 4 hours asneeded for Shortness of breath or wheezing Unchanged [...] fluticasone nasal (fluticasone 0.05 mg/ inh Nasal [place]) 2 Sprays Nasal Inhalation Every day Unchanged [...] By Mouth As Directed take 1 tablet within1 hour before or after intercourse to prevent infection. Unchanged orphenadrine (orphenadrine compounding powder) As needed for Migraine headache Unchanged pantoprazole (Pantoprazole [address] Tab) 1 Tablets By Mouth Every day Epigastric pain Abdominal bloating GERD (gastroesophageal reflux disease) H/O gastric ulcer BMI 29.0-29.9,adult Epigastric pain Abdominal bloating GERD (gastroesophageal reflux disease) H/O gastric ulcer BMI 29.0-29.9,adult Pharmacy Information [facility]: [address] [place], [place] [id number] [phone] Test Results No qualifying data available. Allergies Bee Stings (SOB - Shortness of breath, Hives) amoxicillin (Rash) contrast media (iodine-based) (SOB - Shortness of breath, (more content not included)...[facility] HospitalComment on above:Result Comment: Electronically Signed By: Aleyda KILLIAN, Roxanne Mitchell\.br\Date and Time Signed: 06/02/24 09:01 EDTInpatient Patient Summaryon [id number] Patient SummaryInpatient Patient Summary [id number] [facility] Clinical Discharge Instructions PERSON INFORMATION Name: MUNIRA CHESTER PHYSICIANS Admitting Physician: Asuncion Buchanan MD Attending Physician: Asuncion Buchanan MD PCP: ANDREA GOLDEN DO Discharge Diagnosis: Intrinsic sphincter deficiency (ISD) Comment: PATIENT EDUCATION INFORMATION Instructions: Dewayne Walker Post-Op Instructions (CUSTOM) Medication Leaflets: Follow up: With: Address: When: Asuncion Buchanan [address], [address], [address] [place] [phone] Business (1) Comments: Call to schedule your follow up in 1 month for PVR MEDICATION LIST New Medications [facility], [address] [place], [place] [phone], [phone] cephalexin (Keflex 500 mg Cap) 1 Capsules [...] day. fluticasone nasal (fluticasone 0.05 mg/inh Nasal [place]) 2 Sprays Nasal Inhalation every day. fluticasone [...] Tablets By Mouth every day. Refills: 1. Comment:[facility] HospitalMain OR PACU I Recordon [id number] OR PACU I RecordMain OR PACU I Record PACU Phase I Document Type FT Summary Primary Physician: Asuncion Buchanan MD Finalized Date/Time: 06/02/24 09:13:02 Pt. Name: MUNIRA CHESTER/Sex: 1950 Female Med Rec #: [id number] Physician: Asuncion Buchanan MD Financial #: [id number] Pt. Type: A Room/Bed: [place] [address] Admit/Disch: 06/02/24 05:52:59 - Institution: Case Times [...] individualized perioperative plan of care The patient's rightto privacy is maintained The patient's value system, [...] with or improved from baseline levels established preoperativelyThe patient's cardiovascular status is consistent with or improved from baseline levels established preoperatively The patient's cardiovascular status is consistent with or improved from baseline levels established preoperatively The patient demonstrates and/or reports adequate pain control throughout the perioperative period The patient received appropriate medication(s), safely administered during the perioperativeperiod Acuity Level PACU I FT Entry 1 Start Time 06/02/24 08:36:00 Stop Time 06/02/24 09:06:00 Acuity Level Acuity Level I Last Modified By: Shruthi Cabezas RN 06/02/24 09:12:59 Finalized By: Shruthi Cabezas RN Document Signatures Signed By: Shruthi Cabezas RN 06/02/24 09:13[facility] HospitalMain OR PACU II Recordon [id number] OR PACU II RecordMain OR PACU II Record PACU Phase II Document Type FT Summary Primary Physician: Asuncion Buchanan MD Finalized Date/Time: 06/02/24 10:20:05 Pt. Name: MUNIRA CHESTER/Sex: 1950 Female Med Rec #: [id number] Physician: Asuncion Buchanan MD Financial #: [id number] Pt. Type: A Room/Bed: [facility] Admit/Disch: 06/02/24 05:52:59 - Institution: Case Times [...] and monitors body temperature Evaluates postoperative respiratory statusEvaluates postoperative cardiac status Evaluates postoperative neurological status [...] individualized perioperative plan of care The patient's rightto privacy is maintained The patient's value system, [...] with or improved from baseline levels established preoperativelyThe patient's cardiovascular status is consistent with or improved from baseline levels established preoperatively The patient's neurological status is consistent with or improved from baseline levels established preoperatively The patient demonstrates and/or reports adequate pain control throughout the perioperative period The patient received appropriate medication(s), safely administered during the perioperativeperiod Finalized By: Roxanne Maynard RN Document Signatures Signed By: Roxanne Maynard RN 06/02/24 10:20[facility] Preoperative Recordon [id number] OR Preoperative RecordMain OR Preoperative Record PreOp Document Type FT Summary Primary Physician: Asuncion Buchanan MD Finalized Date/Time: 06/02/24 08:29:55 Pt. Name: MUNIRA CHESTER/Sex: 1950 Female Med Rec #: [id number] Physician: Asuncion Buchanan MD Financial #: [id number] Pt. Type: A Room/Bed: [facility]/ Admit/Disch: 06/02/24 05:52:59 - Institution: [...] Signed By: Luz Elena Crews RN 06/02/24 08:29[facility] Operative Reporton [id number] ReportOperative Report Patient: MUNIRA CHESTER Age: 73 years Sex: Female : 1950 Associated Diagnoses: None Author: Asuncion Buchanan MD Procedure Procedure Date: 06/02/2024. Confirmed: patient, procedure, site, safety procedures followed. Performed by: Asuncion Buchanan MD, anesthesiologist (Cyrus Cottrell CRNA). Type of procedure: Type of procedure: Cystoscopy, injection of urethral bulking agent (Bulkamid) CPT 20662. . 73-year-old female with a history of [...] then retracted into the sheath and approximately 1.5cmfrom the bladder neck the Bulkamid system was [...] Bulkamid system was removed. The procedure was welltolerated and EBL was minimal. Plan: Void prior [...] and Plan Diagnosis Intrinsic sphincter deficiency (ISD) ([id number] N36.42, Discharge, Medical). Diagnosis Intrinsic sphincter deficiency (ISD) ([id number]-TU N36.42, Discharge, Medical). [facility] above:Result Comment: Electronically Signed By: Dewayne VILLEGAS, Asuncion London\.br\Date and Time Signed: 06/02/24 08:46EDT Outpatient Surgery Discharge Instructionon [id number] Surgery Discharge InstructionOutpatient Surgery Discharge Instruction [place] [id number] Patient Discharge Instructions PERSON INFORMATION Name: MUNIRA CHESTER Date of : 1950 Current Date: 06/02/2024 08:43:02 PHYSICIANS Admitting Physician: Asuncion Buchanan MD Discharge Diagnosis: Intrinsic sphincter deficiency (ISD) MUNIRA CHESTER has been given the following list of follow-up instructions, prescriptions, andpatient education materials: PATIENT FOLLOW-UP INFORMATION Diet: Regular [...] when discharge instructions were given Patient Signature Date Clinican/Nurse Signature Date Follow up: With: Address: When: Asuncion Buchanan [address], [facility] [address], [address] [address] [phone] [facility] (1) Comments: Call to schedule your follow up in 1 month for [facility] Pharmacy Information: You may receive a survey from [employer] asking you to rate your care experience. Your feedback is important and will help us understand what we do well and how we can improve the quality of care we provide to you, your loved ones and our community. It???s an honor to serve you. Thank you for choosing [facility] HERE ARE THE MEDICATION CHANGES THAT OCCURRED DURING YOUR HOSPITAL STAY New Medications [email or web address], [address] [place], [place] [id number], [phone] cephalexin (Keflex 500 mg Cap) 1 Capsules [...] day. fluticasone nasal (fluticasone 0.05 mg/inh Nasal [place]) 2 Sprays Nasal Inhalation every day. fluticasone [...] 1. PATIENT EDUCATION INFORMATION Instructions: [facility] [place], [place] Post-Operative Instructions for Bulkamid Congratulations on [...] the bladder and urethra following the procedure. (morecontent not included)...NormalFisher [facility]itus Medical CenterC Urineon [id number] identified Cx Nom (U)Microbiology PROCEDURE: Urine Culture [R1] SOURCE: U CleanCatch BODY SITE: COLLECTED DATE/TIME: 05/20/2024 07:49 EST RECEIVED DATE/TIME: 05/20/2024 11:21 EST START DATE/TIME: 05/20/2024 11:21 EST FREE TEXT SOURCE: Dewayne VILLEGAS, Asuncion Buchanan MD, Asuncion London FINAL REPORTS Final Report [] Verified Date/Time: 05/22/2024 07:12 EST 6,000 cfu/ml Mixed skin contaminants Performing Locations R1: This test was performed at: [facility], [address] [place] [address], [phone]- , , KfmhqaVikwdnClinton Memorial HospitalComment on above:Performed By: #### [id number] #### [facility] [address] [place] [address] 87[address]Jvbgfcddi By: #### [id number] ####[facility] [address] [place] [address] 36581CHFPyg [id number] (GASTA5) MUNIRA CHESTER ([id number]) 1950 F Date Time Provider Department 05/22/24 [...] (GENTLE IRON ORAL) Take by mouth. - mv-min/iron/folic/calcium/vitK (WOMEN'S MULTIVITAMIN ORAL) Take by mouth. - vit A/vit C/biotin/zinc/copper (XMBA-OHFD-TQAG,VIT A,C-BIOTIN, ORAL) Take by mouth. - aspirin [...] (FLONASE) 50 mcg/actuation nasal spray Use 1 [place] Michael in each nostril once daily. - atorvastatin [...] [M*04/11/2016 Encounter Status:Closed by HOLLIS MCKEON on 05/22/24No[facility] with Cult Rflxon [id number] Auto Ql (U)2+ /HPFAbnormalTraceCleveland Clinic Akron GeneralComment on above:Performed By: #### [id number] #### [facility] [address], [place] [address]Mlucmhoyd Ql (U)NegativeNormalNegativeCleveland Clinic [facility]ron GeneralComment on above:Performed By: #### [id number] #### [facility] [address], [place] [address]Ndyeiib oxalate crystals Computer assisted Ql (U)Present AbnormalCleveland Clinic Akron GeneralComment on above:Performed By: #### [id number] #### [facility] [address], [place] [address]Wncqaaf (U)TurbidAbnormalCleOhio Valley Hospital Comment on above:Performed By: #### [id number] #### [facility] [address] [place] [address]Cmgpk (U)YellowNormalYellowCleveland Clinic Akron GeneralComment on above:Result Comment: Microscopic readings are only performed on those samples that meet specific criteria set forth by [facility].Performed By: #### [id number] #### [facility] [address] [place] [address]Gbufjtxeia cells.squamous Auto (Urine sed) [#/Area]0-2Invalid Interpretation CodeCleveland Clinic Akron GeneralComment on above:Performed By: #### [id number] #### [facility] [address] [place] [address]Gswmqmd Ql (U)NegativeNormalNegWilson Memorial Hospital Comment on above:Performed By: #### [id number] #### [facility] [address], [place] [address]Sqyyrwjzdp Auto test strip (U) [Mass/Vol]NegativeNormalNegative [facility] GeneralComment on above:Performed By: #### [id number] #### [facility] [address], [place] [address]Vticjka casts LM Ql (Urine sed)7-00Eydrmuls3-3Zdggwu Meritus Medical CenterComment on above:Performed By: #### [id number] #### [facility] [address], [place] [address]Ysmzdic Auto test strip Ql (U)NegativeNormalNegativeCleveland Clinic Akron GeneralComment on above:Performed By: #### [id number] #### [facility] [address] [place] [address]Bsxiwyjlf esterase Auto test strip Ql (U)25 Rosemarie/uLNormal NegativeCleveland Clinic Akron GeneralComment on above:Performed By: #### [id number] #### [facility] [address] [place] [address]Ujszh Auto Ql (U)4+ CD:[id number] [facility]itus Medical CenterComment on above:Performed By: #### [id number] #### [facility] [address] [place] [address]Uezmopb Auto test strip Ql (U)NegativeNormalNegativeCleveland Clinic Akron GeneralComment on above:Performed By: #### [id number] #### [facility] [address] [place] [address]gM (U)5.5 [pH]Invalid Interpretation Code5.0-9.0[facility] GeneralComment on above:Performed By: #### [id number] #### [facility] [address] [place] [address]Zimyxox Ql (U)1+ mg/dLAbnormalNegativeCleveland Clinic Akron GeneralComment on above:Performed By: #### [id number] #### [facility] [address] [place] [address]Lkbjravo gravity (U) [Rel density]1.034Invalid Interpretation Code1.005-1.030[facility] GeneralComment on above:Performed By: #### [id number] #### [facility] [address] [place] [address]Ppwzrxxzzlmi (U) [Mass/Vol]2 mg/dLAbnormalNegativeCleveland Clinic Akron GeneralComment on above:Performed By: #### [id number] #### [facility] [address] [place] [address]BUI Auto (Urine sed) [#/Area]5-92Adekrgel6-1Gthpjo [facility] Medical CenterComment on above:Performed By: #### [id number] #### [facility] [address] [place] [address]Kfac of Urine collection methodClean CatchNormalFisher Meritus Medical CenterComment on above:Performed By: #### [id number] #### [facility] [address] [place], [place] [address]TZPTBPAIHFVawbgym By: SYSTEM SYSTEM on 62-52-8005Rmwpdqvx Auto Ql (U)2+ /HPFInvalid Interpretation CodeTrace/HPFFTMC UA Auto SSBilirubin Ql (U) NegativeNormalNegativemg/dLFTMC UA Auto SSCalcium oxalate crystals Computer assisted Ql (U)Present graded/HPFInvalid Interpretation CodeFTMC UA Auto SS Clarity (U)Turbid *ABN* (05/20/24 7:49 AM)Invalid Interpretation CodeClearFTMC UA Auto SSColor (U)Yellow 1 (05/20/24 7:49 AM)NormalYellowFT UA Auto SSComment on above:Interpretive Data: Microscopic readings are only performed on those samples that meet specific criteria set forth by [facility].Epithelial cells.squamous Auto (Urine sed) [#/Area]0-2 graded/HPFInvalid Interpretation CodeFT UA Auto SSGlucose Ql (U)NegativeNormalNegativemg/dLFTMC UA Auto SS Hemoglobin Auto test strip (U) [Mass/Vol]NegativeNormalNegativemg/dLFTMC UA Auto SSHyaline casts LM Ql (Urine sed)4-10 graded/LPFInvalid Interpretation Code 0-3graded/LPFFTMC UA Auto SSKetones Auto test strip Ql (U)NegativeNormal Negativemg/dLFTMC UA Auto SSLeukocyte esterase Auto test strip Ql (U)25 Rosemarie/uL Rosemarie/uLNormalNegativeLeu/uLFTMC UA Auto SSMucus Auto Ql (U)4+ graded/LPFInvalid Interpretation CodeNegativegraded/LPFFTMC UA Auto SSNitrite Auto test strip Ql (U)NegativeNormalNegativemg/dLFTMC UA Auto SSpH (U)5.5 *NA* (05/20/24 7:49 AM)Invalid Interpretation Code5.0 - 9.0FTMC UA Auto SSProtein Ql (U)1+ mg/dLInvalid Interpretation CodeNegativemg/dLFTMC UA Auto SSSpecific gravity (U) [Rel density]1.034 *NA* (05/20/24 7:49 AM)Invalid Interpretation Code1.005 - 1.030[facility] Auto SS Urobilinogen (U) [Mass/Vol]2 mg/dLInvalid Interpretation CodeNegativemg/dLMERCY HOSPITAL [facility] Auto SSWBC Auto (Urine sed) [#/Area]6-15 graded/HPFInvalid Interpretation Code0-5graded/HPFMERCY HOSPITAL [facility] Auto SSURINALYSISOrdered By: Lorin Marks on 99-88-8630NL Spec DescClean Catch (05/20/24 7:49 AM)NormalMERCY HOS[facility]ITAL [facility] UA Auto SSAmbulatory Visit Summaryon 04-22-2024 Ambulatory Visit SummaryAmbulatory Visit Summary MUNIRA CHESTER :1950 Visit Date:04/22/2024 Ambulatory [...] spray) fluticasone nasal (fluticasone 0.05 mg/inh Nasal [place]) fluticasone-vilanterol (Breo Ellipta 200 mcg-25 mcg/inh inhalation powder) iron polysaccharide (Ferrex-150) levothyroxine (levothyroxine 100 mcg (0.1 mg) Tab) montelukast (montelukast 10 mg Tab) multivitamin (Multi Vitamins oral tablet) multivitamin with minerals (Calcium with Vitamin D and Minerals oral tablet) orphenadrine (orphenadrine compounding powder) oxybutynin (oxybutynin 5 mg Tab) pantoprazole (Pantoprazole [address] Tab) Procedures Performed Cystoscopy (04/07/2024), Colonoscopy (05/22/2023), Esophagogastroduodenoscopy (05/22/2023), Colonoscopy (09/07/2019), EGD - Esophagogastroduodenoscopy (09/07/2019), Colonoscopy (01/16/2015), EGD - Esophagogastroduodenoscopy (01/16/2015), EGD - Esophagogastroduodenoscopy (08/17/2011), EGD - Esophagog astroduodenoscopy (05/17/2011), Laparoscopic cholecystectomy (06/16/2010), Colonoscopy (01/16/2010), Cataracts, section, Dilation and curettage, Foot, Right wrist, Rotator cuff repair, Thyroidectomy, Tubal ligation. Discharge Vitals Heart Rate (Peripheral) 68 Blood Pressure 126/66 Height 158 cm Height 62 in Weight 62 kg Weight 136.686 lb BMI 24.84 What to do next Scheduled Follow-Up Appointments Saturday 7:30 AM EST Where: [facility] Saturday 9:30 AM EDT Where: [facility] You Need to Schedule the Following Appointments Follow Up with Dewayne VILLEGAS, RANDAL Arizmendi, URO When: Where: Medications What How Much When Why Instructions Unchanged estradiol topical (estradiol 0.1 mg/ g Vag Crm) See instructions apply pea sized amount to urethra 2x/ wk Unchanged nitrofurantoin (Macrobid 100 mg Cap) 1 Capsules By Mouth As Directed take 1 tablet within1 hour before or after intercourse to prevent infection. Unchanged albuterol (ProAir HFA 90 mcg/ inh inhalation aerosol) 2 Puffs Inhalation Every 4 hours asneeded for Shortness of breath or wheezing Contact [...] 2 times a day Contact prescribing physician ifquestions or concerns Unchanged fluticasone nasal (fluticasone 0.05 mg/ inh Nasal [place]) 2 Sprays Nasal Inhalation Every day Contact [...] day Contact prescribing ph (more content not included)...[facility] HospitalUrology Office/Clinic Noteon [id number] Office/Clinic NoteUrology Office/Clinic Note Chief Complaint 2 [place] path review HPI Staff 73yr old female [...] much, slow urine. Prior PVRs have been low.Encouraged pt to push fluids. -Fluids -Monitor for [...] objectively dry in Bulkamid group vs 100% subjectivelycured and 95% dry with TVT. At 9 years, 67.1% of the Bulkamid patients reported feeling cured or improved, 11.1% no change, and 2.3% worsening of incontinence. 19.5% of patients received a subsequentother incontinence procedure. 0% serious complications were reported [...] 4. Recurrent UTI (N (more content not included)...[facility] HospitalComment on above:Result Comment: Electronically Signed By: Dewayne VILLEGAS, Asuncion London\.br\Date and Time Signed: 04/22/24 11:55EST\.br\Electronically Co-Signed By: Ailyn Aranda\.br\Date and Time Co-Signed: 04/22/24 11:33 ESTSurgical Pathology Reporton [id number] Pathology ReportFishMedStar [facility] [address] [place] [address]- Surgical Pathology Report Collected Date/Time: 04/07/2024 10:02 [...] is entirely submitted in one cassette. (DC) DC:[facility] Microscopic Description Microscopic examination performed unless gross only specified. This report was transcribed using voice recognition technology and might contain unintended computerized construction skills teacher errors.NormalCleveland Clinic Akron GeneralComment on above:Performed By: #### [id number] #### [facility] [address] [place] [address]Zcmq OR Intraoperative Recordon [id number] OR Intraoperative RecordMain OR Intraoperative Record IntraOp Document Type FT Summary Primary Physician: Asuncion Buchanan MD Finalized Date/Time: 04/08/24 08:33:19 Pt. Name: MUNIRA CHESTER /Sex: 1950 Female Med Rec #: [id number] Physician: Asuncion Buchanan MD Financial #: [id number] Pt. Type: A Room/Bed: [facility] Admit/Disch: 04/07/24 07:20:36 - 04/07/24 12:00:00 Institution: [...] 1 Entry 2 Entry 3 Case Attendee Bravo Bhardwaj MD, Asuncion Madera RN, Mary Calabrese Role Performed Anesthesiologist Surgeon - Primary Educational Interpreter - Primary Brokerage Coordinator Time In 04/07/24 09:46:00 04/07/24 09:46:00 04/07/24 09:46:00 Time Out 04/07/24 10:20:00 04/07/24 10:16:00 04/07/24 10:20:00 Procedure CYSTOSCOPY TURB(.) CYSTOSCOPY TURB(.) CYSTOSCOPY TURB(.) Comments DR. CAMACHO SUPERVISING Last Modified By: Santy KILLIAN, Mary Madera RN, Mary Madera RN, Mary Caalbrese 04/07/24 10:21:25 04/07/24 10:21:25 04/07/24 10:21:25 Entry 4 Entry 5 Case Attendee Sukhjinder RN, CNOR, Luci MalverneMeeta christensen LPN Role Performed Staff - Other Scrub - Primary Time In 04/07/24 09:46:00 04/07/24 09:46:00 Time Out 04/07/24 10:20:00 04/07/24 10:20:00 Procedure CYSTOSCOPY TURB(.) CYSTOSCOPY TURB(.) Comments HELP Aida HANNA STUDENT Last Modified By: Mary Madera RN, RN, Leann E 04/07/24 10:21:25 04/07/24 10:21:25 General Comments: [facility] director of instructional technology student alf correa also present for this case. MARIA D kaisertool sharpener Protocols FT Pre-Care Text: Implements protective measures [...] Bravo Bhardwaj Given Participants Dewayne Mo MD, Santy Arizmendi RN, Leann E, Missler RN, CNOR, Nicolas Jean LPN, Jessica D Time Out Complete 04/07/24 09:58:00 Outcomes Met? [...] and tissue Entry 1 Skin Integrity Intact, [place], Warm, & Skin Abnormality No Dry Outcomes [...] Entry 1 Procedure CYST (more content not included)...[facility] Discharge Instructionson [id number] InstructionsDischarge Instructions MUNIRA CHESTER :1950 Visit Date:04/07/2024 Inpatient Discharge [...] spray) fluticasone nasal (fluticasone 0.05 mg/inh Nasal [place]) fluticasone-vilanterol (Breo Ellipta 200 mcg-25 mcg/inh inhalation powder) iron polysaccharide (Ferrex-150) levothyroxine (levothyroxine 100 mcg (0.1 mg) Tab) montelukast (montelukast 10 mg Tab) multivitamin (Multi Vitamins oral tablet) multivitamin with minerals (Calcium with Vitamin D and Minerals oral tablet) nitrofurantoin (Macrobid 100 mg Cap) orphenadrine (orphenadrine compounding powder) oxybutynin (oxybutynin 5 mg Tab) pantoprazole (Pantoprazole [address] Tab) Procedure History Colonoscopy (05/22/2023), Esophagogastroduodenoscopy (05/22/2023), Colonoscopy (09/07/2019), EGD - Esophagogastroduodenoscopy (09/07/2019), Colonoscopy [...] Follow-Up Appointments Saturday 10:45 AM EST With: Asuncion Buchanan MD Where: [facility] [address] [place] [address] [place] [address]- New Follow Up Appointments after Discharge Follow Up with Asuncion Buchanan When: Comments: Office to call to schedule your follow up: white removal and voiding trial in 1- 2 days once urine is clear. Follow up in 1-2 weeks for pathology review. Where: [address] [place], [place] [address]dict Siobhan, [address] [address] [phone] Business (1) Medications What How Much When Why Instructions Next Dose New ciprofloxacin (Cipro 500 mg Tab) 1 Tablets By Mouth Every 12 hours Duration: 1 Days Start morning of white removal in 1-2 days Pickup at [facility] New oxybutynin (oxybutynin 5 mg Tab) 1 Tablets By Mouth 3 times a day as needed for bladder spasms Pickup at [facility] Unchanged albuterol (ProAir HFA 90 mcg/ inh inhalation aerosol) 2 Puffs Inhalation Every 4 hours asneeded for Shortness of breath or wheezing Unchanged [...] fluticasone nasal (fluticasone 0.05 mg/ inh Nasal [place]) 2 Sprays Nasal Inhalation Every day Unchanged [...] Mouth Every day Unch (more content not included)...[facility] HospitalComment on above:Result Comment: Electronically Signed By: Gilbert KILLIAN, Nasrin Mitchell\.br\Date and Time Signed: 04/07/24 10:41 ESTInpatient Patient Summaryon [id number] Patient SummaryInpatient Patient Summary [address] [address] [facility] Clinical Discharge Instructions PERSON INFORMATION Name: MUNIRA CHESTER PHYSICIANS Admitting Physician: Asuncion Buchanan MD Attending Physician: Asuncion Buchanan MD PCP: ANDREA GOLDEN DO Discharge Diagnosis: Urethral caruncle; Urethral tumor Comment: PATIENT EDUCATION INFORMATION Instructions: Cook - Post Op INstructions for Bladder Tumor, Bladder Biopsy (CUSTOM) Medication Leaflets: Follow up: With: Address: When: Asuncion Buchanan [address] [place], [place] [phone] [facility] (1) Comments: Office to call to schedule your follow up: white removal and voiding trial in 1- 2 days once urine is clear. Follow up in 1-2 weeks for pathology review. Type Location Start Finish [facility] URO Office Visit [facility] BHAVIN Potter 04/22/2024 10:45 AM 04/22/2024 11:00 AM Confirmed MEDICATION LIST New Medications [email or web address], [address] [place], [place] [id number], [phone] ciprofloxacin (Cipro 500 mg Tab) 1 Tablets [...] day. fluticasone nasal (fluticasone 0.05 mg/inh Nasal [place]) 2 Sprays Nasal Inhalation every day. fluticasone [...] Tablets By Mouth every day. Refills: 1. Comment:[facility] OR PACU I Recordon [id number] OR PACU I RecordMain OR PACU I Record PACU Phase I Document Type FT Summary Primary Physician: Asuncion Buchanan MD Finalized Date/Time: 04/07/24 12:46:06 Pt. Name: MUNIRA CHESTER /Sex: 1950 Female Med Rec #: [id number] Physician: Asuncion Buchanan MD Financial #: [id number] Pt. Type: A Room/Bed: [place] [address] Admit/Disch: 04/07/24 07:20:36 - 04/07/24 12:00:00 Institution: [...] individualized perioperative plan of care The patient's rightto privacy is maintained The patient's value system, [...] with or improved from baseline levels established preoperativelyThe patient's cardiovascular status is consistent with or improved from baseline levels established preoperatively The patient's cardiovascular status is consistent with or improved from baseline levels established preoperatively The patient demonstrates and/or reports adequate pain control throughout the perioperative period The patient received appropriate medication(s), safely administered during the perioperativeperiod Acuity Level PACU I FT Entry 1 Start Time 04/07/24 10:23:00 Stop Time 04/07/24 10:53:00 Acuity Level Acuity Level I Last Modified By: Pam Harris RN 04/07/24 12:46:04 Finalized By: Pam Harris RN Document Signatures Signed By: Pam Harris RN 04/07/24 12:46NormalCleveland Clinic [facility] GeneralMain OR PACU II Recordon [id number] OR PACU II RecordMain OR PACU II Record PACU Phase II Document Type FT Summary Primary Physician: Asuncion Buchanan MD Finalized Date/Time: 04/07/24 12:11:40 Pt. Name: MUNIRA CHESTER/Sex: 1950 Female Med Rec #: [id number] Physician: Asuncion Buchanan MD Financial #: [id number] Pt. Type: A Room/Bed: [facility] Admit/Disch: [...] and monitors body temperature Evaluates postoperative respiratory statusEvaluates postoperative cardiac status Evaluates postoperative neurological status [...] individualized perioperative plan of care The patient's rightto privacy is maintained The patient's value system, [...] with or improved from baseline levels established preoperativelyThe patient's cardiovascular status is consistent with or improved from baseline levels established preoperatively The patient's neurological status is consistent with or improved from baseline levels established preoperatively The patient demonstrates and/or reports adequate pain control throughout the perioperative period The patient received appropriate medication(s), safely administered during the perioperativeperiod Finalized By: Nasrin Stacy RN Document Signatures Signed By: Nasrin Stacy RN 04/07/24 12:11[facility] HospitalMain OR Preoperative Recordon [id number] OR Preoperative RecordMain OR Preoperative Record PreOp Document Type FT Summary Primary Physician: Asuncion Buchanan MD Finalized Date/Time: 04/07/24 10:06:13 Pt. Name: MUNIRA CHESTER/Sex: 1950 Female Med Rec #: [id number] Physician: Asuncion Buchanan MD Financial #: [id number] Pt. Type: A Room/Bed: [place] [address] Admit/Disch: 04/07/24 07:20:36 - Institution: Case Times [...] Signatures Signed By: Mary Madera RN 04/07/24 10:06[facility] HospitalOperative Report on [id number] ReportOperative Report Patient: MUNIRA CHESTER Age: 73 years Sex: Female : 1950 Associated Diagnoses: None Author: Asuncion Buchanan MD Procedure Procedure Date: 04/07/2024. Confirmed: patient, procedure, site, safety procedures followed. Performed by: Asuncion Buchanan MD, anesthesiologist ([facility]). Type of procedure: Cystoscopy, urethral tumor and [...] We began the procedure using a 22.5 Telugu rigid cystoscope, 30 degree lens, and inserted this intothe bladder without any issue. We noted findings [...] The bladder was drained and the cystoscope removed.Tenotomy scissors were used to excise the irregular appearing portion of the urethral caruncle at the 2 and 10 o'clock position as described above, sent for pathology. Limited electrocautery was usedto achieve hemostasis. An 18 Telugu White catheter was inserted into the bladder [...] review.. Impression and Plan Diagnosis Urethral tumor ([id number]-SP D49.59, Discharge, Medical). Urethral caruncle ([id number]-RM N36.2, Discharge, Medical). Diagnosis Urethral tumor ([id number]-OC D49.59, Discharge, Medical). Urethral caruncle ([id number]-ZQ N36.2, Discharge, Medical).[facility] HospitalComment on above:Result Comment: Electronically Signed By: Asuncion Buchanan MD\.br\Date and Time Signed: 04/07/24 10:46ESTOutpatient Surgery Discharge Instructionon 11-00-6277Oehujathkt Surgery Discharge InstructionOutpatient Surgery Discharge Instruction [place] [id number] Patient Discharge Instructions PERSON INFORMATION Name: MUNIRA CHESTER Date of : 1950 Current Date: 04/07/2024 10:38:46 PHYSICIANS Admitting Physician: Asuncion Buchanan MD Discharge Diagnosis: Urethral caruncle; Urethral tumor MUNIRA CHESTER has been given the following list of follow-up instructions, prescriptions, andpatient education materials: PATIENT FOLLOW-UP INFORMATION Diet: Regular Discharge Activity: Ambulate as tolerated, Expect mild pain, Expect minimal amount of drainage and/or bleeding, Activity as tolerated Discharge Restrictions: No driving for 24 hrs Call Your Doctor For: Persistent or heavy bleeding, Temperature above 101.5 degrees, Severe pain atthe operative site, Persistent vomiting IF UNABLE TO CONTACT YOUR PHYSICIAN AND YOU FEEL IT IS AN EMERGENCY, GO TO THE NEAREST EMERGENCY ROOM OR CALL 911 CATHERINE Mcginnis [place], have received the attached patient education materials/instructions and have verbalized understanding: May we do a follow up call? Yes No I was present when discharge instructions were given Patient Signature Date Clinican/Nurse Signature Date Follow up: With: Address: When: Asuncion Buchanan [address] [place], [place] [address], [address] [address] [phone] Business (1) Comments: Office to call to schedule your follow up: white removal and voiding trial in 1- 2 days once urine is clear. Follow up in 1-2 weeks for pathology review. Type Location Start [facility] [place] [facility] [place] Tariq 04/22/2024 10:45 AM 04/22/2024 11:00 [...] serve you. Thank you for choosing [facility] HERE ARE THE MEDICATION CHANGES THAT OCCURRED DURING YOUR HOSPITAL STAY New Medications [email or web address], [address] [phone], [phone] ciprofloxacin (Cipro 500 mg Tab) 1 Tablets [...] day. fluticasone nasal (fluticasone 0.05 mg/inh Nasal [facility]) 2 Sprays Nasal Inhalation every day. fluticasone [...] 1. PATIENT EDUCATION INFORMATION Instructions: [facility] [place], [place] Post-Operative Instructions *Even though there are no visible incisions, the urethra is quite raw on the inside and you need tofollow some instructions to minimize the risks of bleeding and disturbing the area over the next 4 weeks. *The catheter in the (more content not included)...[facility] HospitalC Urineon [id number] identified Cx Nom (U)Microbiology PROCEDURE: Urine Culture [R1] SOURCE: U CleanCatch BODY SITE: COLLECTED DATE/TIME: 03/24/2024 07:56 EST RECEIVED DATE/TIME: 03/24/2024 13:41 EST START DATE/TIME: 03/24/2024 13:41 EST FREE TEXT SOURCE: Dewayne VILLEGAS, Asuncion Buchanan MD, Asuncion [place] FINAL REPORTS Final Report [] Verified Date/Time: 03/26/2024 11:19 EST 3,000 cfu/ml Mixed skin contaminants Performing Locations R1: This [facility] performed at: [facility], [address] [place] [address], [id number] , , EbacxlXbvqioClinton Memorial HospitalComment on above:Performed By: #### [id number] #### [facility] [address] [place] [address] [id number] Chest 2 Viewson [id number] Chest 2 ViewsExam Date/Time: 03/24/2024 08:16 EST Reason for Exam: [...] Ka,r in mGy = n/a DAP = n/NormalCleveland Clinic Akron GeneralBMPon 64-35-1622Uvwwg gap [Moles/Vol]12 mmol/LNormal6-16[facility] GeneralComment on above:Performed By: #### [id number] #### [facility] [address], [place] [address]Cgydrgu [Mass/Vol]9.2 mg/dLNormal8.9-11.1FWadsworth-Rittman HospitalComment on above:Performed By: #### [id number] #### [facility] [address], [place] [address]Oqoogvqh [Moles/Vol]106 mmol/VWvczjl223-310UedthhCleveland Clinic Akron GeneralComment on above:Performed By: #### [id number] #### [facility] [address], [place] [address]FV5 [Moles/Vol]27 mmol/ICemthn11-38TjvzeyC[facility] Clinic [facility] Comment on above:Performed By: #### [id number] #### [facility] [address], [place] [address]Iucnrrvtmn [Mass/Vol]0.7 mg/dLNormal0.5-1.3FWadsworth-Rittman HospitalComment on above:Performed By: #### [id number] #### [facility] [address], [place] [address]Bangmri [Mass/Vol]96 mg/qJYcsofc23-645MewrmyCleveland Clinic Akron GeneralComment on above:Performed By: #### [id number] #### [facility] [address], [place] [address]Ncppenfcy [Moles/Vol]3.5 mmol/LNormal3.5-5.3FWadsworth-Rittman HospitalComment on above:Performed By: #### [id number] #### [facility] [address], [place] [address]Qusljy [Moles/Vol]141 mmol/XBaxxpn758-071VoloetCleveland Clinic Akron GeneralComment on above:Performed By: #### [id number] #### [facility] [address], [place] [address]Exjk nitrogen [Mass/Vol]14 mg/dLNormal5-21[facility] GeneralComment on above:Performed By: #### [id number] #### [facility] [address] [place] [address]Wdde nitrogen/Creatinine [Mass ratio]20 No LosdyBbrxfu96-49 [facility] GeneralComment on above:Performed By: #### [id number] #### [facility] [address] [place] [address]MPV w/ Auto Diffon 84-74-3742Ptjibjuvi/100 WBC (Bld)0.4 %Normal 0.0-2.0[facility] GeneralComment on above:Performed By: #### [id number] #### [facility] [address] [place] [address]Anjhuohjm/Leukocytes Auto (Bld) [Pure # fraction]0.0 E9/LNormal 0.0-0.2FWadsworth-Rittman HospitalComment on above:Performed By: #### [id number] #### [facility] [address] [place] [address]Loslfnfmkib (Bld) [#/Vol]0.2 E9/LNormal0.0-0.5FWadsworth-Rittman HospitalComment on above:Performed By: #### [id number] #### [facility] [address], [place] [address]Dbddqcekgjg/100 WBC (Bld)2.2 %Normal0.0-8.0[facility] GeneralComment on above:Performed By: #### [id number] #### [facility] [address] [place] [address] 47[address]Gwuwveoxzav distribution width (RBC) [Ratio]14.6 %High10.9-14.2 [facility] GeneralComment on above:Performed By: #### [id number] #### [facility] [address] [place] [address]Qlrorqbloc (Bld) [Volume fraction]36.8 %Fvgrrg28.0-46.0[facility] GeneralComment on above:Performed By: #### [id number] #### [facility] [address] [place] [address] 24[address]Rlzoqsdxws (Bld) [Mass/Vol]12.8 g/lIAfsnrb82.0-16.0[facility] GeneralComment on above:Performed By: #### [id number] #### [facility] [address] [place] [address]Ojfpmawyivc (Bld) [#/Vol]1.3 E9/LNormal1.0-4.0[facility] GeneralComment on above:Performed By: #### [id number] #### [facility] [address] [place] [address]Pncnkdcruod/100 WBC (Bld)12.1 %Low14.0-50.0[facility] GeneralComment on above:Performed By: #### [id number] #### [facility] [address] [place] [address]PZO (RBC) [Entitic mass]31.7 lnRommjw99.0-34.0[facility] GeneralComment on above:Performed By: #### [id number] #### [facility] [address] [place] [address]OFCY (RBC) [Mass/Vol]34.7 g/nQGyndvo77.4-36.0[facility] GeneralComment on above:Performed By: #### [id number] #### [facility] [address] [place] [address]LUE (RBC) [Entitic vol]91.5 rDQlhqji74.0-100.0[facility] GeneralComment on above:Performed By: #### [id number] #### [facility] [address] [place] [address]Tgikxgswp (Bld) [#/Vol]0.9 E9/LNormal0.2-1.0[facility] GeneralComment on above:Performed By: #### [id number] #### [facility] [address] [place] [address]Ecgwbuxldgi (Bld) [#/Vol]8.1 E9/LHigh2.0-7.5FWadsworth-Rittman HospitalComment on above:Performed By: #### [id number] #### [facility] [address] [place] [address]Jlzrokugkqu/100 WBC (Bld)76.6 %High36.0-75.0[facility] GeneralComment on above:Performed By: #### [id number] #### [facility] [address] [place] [address]Oizmxwlk mean volume (Bld) [Entitic vol]8.3 fLNormal6.4-10.8 [facility] GeneralComment on above:Performed By: #### [id number] #### [facility] [address] [place] [address]Nbgsfryab (Bld) [#/Vol]336.0 E9/VRryuiy400.0-500.0[facility] GeneralComment on above:Performed By: #### [id number] #### [facility] [address] [place] [address]WWF (Bld) [#/Vol]4.0 E12/LLow4.3-5.9[facility] Comment on above:Performed By: #### [id number] #### [facility] [address], [place] [address]FAY corrected for nucl RBC Auto (Bld) [#/Vol]10.6 E9/LNormal 4.0-11.0[facility] GeneralComment on above:Performed By: #### [id number] #### [facility] [address], [place] [address]EOOQBNHMRLawodbg By: SYSTEM SYSTEM on 58-10-2061Xlokq gap [Moles/Vol]12 mmol/LNormal6 - 16 mEq/LRemisol ChemCalcium [Mass/Vol]9.2 mg/dL Normal8.9 - 11.1 mg/dLRemisol ChemChloride [Moles/Vol]106 mmol/VEtmayo384 - 111 mmol/LRemisol ChemCO2 [Moles/Vol]27 mmol/RZtrgva94 - 31 mmol/LRemisol Chem Creatinine [Mass/Vol]0.7 mg/dLNormal0.5 - 1.3 mg/dLRemisol RtxfrMOR64 mL/min/1.73 n7Qfrybm>=59mL/min/1.73 b1Yrzqxwe ChemGlucose [Mass/Vol]96 mg/dL Yockgk22 - 199 mg/dLRemisol ChemPotassium [Moles/Vol]3.5 mmol/LNormal3.5 - 5.3 mmol/LRemisol ChemSodium [Moles/Vol]141 mmol/PAuzigh956 - 145 mmol/LRemisol Chem Urea nitrogen [Mass/Vol]14 mg/dLNormal5 - 21 mg/dLRemisol ChemUrea nitrogen/Creatinine [Mass ratio]20 mg/laWhzbpq96 - 20Remisol ChemCOAGULATION Ordered By: Crissy Brown on 23-52-2785hBMK Coag (PPP) [Time]32.8 rWjmrdr52.1 - 36.5 second(s)[facility] Auto CoagComment on above:Interpretive Data: Parameter 15 days - 4 weeks 1 - [...] the same coagulation reagent and instrumentation as [facility]. Currently there are no coagulation studies available worldwide for children to 14 days, andno normal ranges. Heparin therapeutic range (represented by Anti-Factor Xa activity of 0.2 - 0.4 U/mL) corresponds to PTT of 56.6 - 109.0 sec.INR Coag (PPP) [Relative time]1.06 {INR}Invalid Interpretation CodeMERCY HOSPITAL [facility] [place] Auto CoagComment on above:Interpretive Data: INR results are specifically intended to assess patients stabilized on long-term Anticoagulation therapy suggested INR s Less Intensive Anticoagulation 2.0 3.0 Conventional Range 3.0 4.5PT Coag (PPP) [Time]11.9 sNormal9.4 - 12.5 second(s) [facility] Auto CoagComment on above:Interpretive Data: 15 days - 4 weeks 1 - [...] the same coagulation reagent and instrumentation as [facility]. Currently there are no coagulation studies available worldwide for children to 14 days, andno normal ranges.HEMATOLOGYOrdered By: SYSTEM SYSTEM on 39-48-2793Qbobgujpj/100 WBC (Bld)0.4 %Normal0.0 - 2.0 %Remisol HemeBasophils/Leukocytes Auto (Bld) [Pure # fraction]0.0 E9/LNormal0.0 - 0.2 E9/LRemisol HemeEosinophils (Bld) [#/Vol]0.2 E9/LNormal0.0 - 0.5 E9/LRemisol HemeEosinophils/100 WBC (Bld)2.2 %Normal0.0 - 8.0 %Remisol HemeErythrocyte distribution width (RBC) [Ratio]14.6 %High10.9 - 14.2 %Remisol HemeHematocrit (Bld) [Volume fraction]36.8 %Jcshry97.0 - 46.0 % Remisol HemeHemoglobin (Bld) [Mass/Vol]12.8 g/nVZfhmie99.0 - 16.0 gm/dLRemisol HemeLymphocytes (Bld) [#/Vol]1.3 E9/LNormal1.0 - 4.0 E9/LRemisol Heme Lymphocytes/100 WBC (Bld)12.1 %Low14.0 - 50.0 %Remisol HemeMCH (RBC) [Entitic mass]31.7 uzAacoku95.0 - 34.0 pgRemisol HemeMCHC (RBC) [Mass/Vol]34.7 g/dLNormal 31.4 - 36.0 gm/dLRemisol HemeMCV (RBC) [Entitic vol]91.5 fBAlqabk79.0 - 100.0 fL Remisol HemeMonocytes (Bld) [#/Vol]0.9 E9/LNormal0.2 - 1.0 E9/LRemisol Heme Monocytes/100 WBC (Bld)8.7 %Normal4.0 - 14.0 %Remisol HemeNeutrophils (Bld) [#/Vol]8.1 E9/LHigh2.0 - 7.5 E9/LRemisol HemeNeutrophils/100 WBC (Bld)76.6 %High 36.0 - 75.0 %Remisol HemePlatelet mean volume (Bld) [Entitic vol]8.3 fLNormal6.4 - 10.8 fLRemisol HemePlatelets (Bld) [#/Vol]336.0 E9/NWrrmrr907.0 - 500.0 E9/L Remisol HemeRBC (Bld) [#/Vol]4.0 E12/LLow4.3 - 5.9 E12/LRemisol HemeWBC corrected for nucl RBC Auto (Bld) [#/Vol]10.6 E9/LNormal4.0 - 11.0 E9/LRemisol HemePT & PTTon 53-77-5094gVSM Coag (PPP) [Time]32.8 second(s)Hyycrm48.1-36.5 [facility] GeneralComment on above:Result Comment: Parameter 15 days - 4 weeks 1 - 5 months 6 - 11 months 1 - 5 years 6 - 10 years 11 - 17 years PTT Mean: 35.4 (27.6-45.6) Mean: 33.5 (24.8-40.7) Mean: 32.4 (25.1-40.7) Mean: 31.6 (24.0-39.2) Mean: 31.6 (26.9-38.7) Mean: 31.0 (24.6-38.4) Pediatric Reference ranges were obtained from a study by Marcleino Pruitt et al. prepared from 1437 samples obtained at 7 different centers using the same coagulation reagent and instrumentation as [facility] Currently there are no coagulation studies available worldwide for children to 14 days, andno normal ranges. Heparin therapeutic range (represented by Anti-Factor Xa activity of 0.2 - 0.4 U/mL) corresponds to PTT of 56.6 - 109.0 sec.Performed By: #### [id number] #### [facility] [address], [place] [address]JCC Coag (PPP) [Relative time]1.06 {INR}Invalid Interpretation CodeAngelAdventist HealthCare White Oak Medical CenterComment on above:Result Comment: INR results are specifically intended to assess patients stabilized on long-term Anticoagulation therapy suggested INR???s ???Less Intensive Anticoagulation??? 2.0 ??? 3.0 Conventional Range 3.0 ??? 4.5Performed By: #### [id number] #### [facility] [address], [place] [address]FF Coag (PPP) [Time]11.9 second(s)Normal9.4-12.5Fisher Meritus Medical CenterComment on above:Result Comment: 15 days - 4 weeks 1 - [...] the same coagulation reagent and instrumentation as [facility] Currently there are no coagulation studies available worldwide for children to 14 days, andno normal ranges.Performed By: #### [id number] #### [facility] [address], [place] [address]YW with Cult Rflxon 93-92-7263Zwbrvxtv Auto Ql (U)TraceNormal TraceCleveland Clinic Akron GeneralComment on above:Performed By: #### [id number] #### [facility] [address], [place] [address]Mbuwmimwb Ql (U)NegativeNormalNegativeC[facility] Clinic [facility] GeneralComment on above:Performed By: #### [id number] #### [facility] [address], [place] [address]Odkjvup (U)TurbidAbnormalClearFWadsworth-Rittman Hospital Comment on above:Performed By: #### [id number] #### [facility] [address], [place] [address]Albwi (U)YellowNormalYellowCleveland Clinic Akron GeneralComment on above:Result Comment: Microscopic readings are only performed on those samples that meet specific criteria set forth by [facility].Performed By: #### [id number] #### [facility] [address], [place] [address]Yxckzycdkk cells.squamous Auto (Urine sed) [#/Area]0-2Invalid Interpretation CodeCleveland Clinic Akron GeneralComment on above:Performed By: #### [id number] #### [facility] [address], [place] [address]Xzvxwez Ql (U)NegativeNormalNegWilson Memorial Hospital Comment on above:Performed By: #### [id number] #### [facility] [address], [place] [address]Jpoaoslyvm Auto test strip (U) [Mass/Vol]NegativeNormalNegative [facility] GeneralComment on above:Performed By: #### [id number] #### [facility] [address], [place] [address]Mbhgfko casts LM Ql (Urine sed)1-8Tvaith7-0LkqqwpWadsworth-Rittman HospitalComment on above:Performed By: #### [id number] #### [facility] [address], [place] [address]Atjutmj Auto test strip Ql (U)NegativeNormalNegativeCleveland Clinic [facility] GeneralComment on above:Performed By: #### [id number] #### [facility] [address], [place] [address]Wedjjzjfl esterase Auto test strip Ql (U)25 Rosemarie/uLNormal [facility] Main CampusComment on above:Performed By: #### [id number] #### [facility] [address], [place] [address]Ljitx Auto Ql (U)3+ CD:[id number] Titus Medical CenterComment on above:Performed By: #### [id number] #### [facility] [address], [place] [address]Gdcyndz Auto test strip Ql (U)NegativeNormalNegWilson Memorial HospitalComment on above:Performed By: #### [id number] #### [facility] [address], [place] [address]rP (U)5.5 [pH]Invalid Interpretation Code5.0-9.0[facility] GeneralComment on above:Performed By: #### [id number] #### [facility] [address], [place] [address]Dujfpdu Ql (U)1+ mg/dLAbnormalNegativeCleveland Clinic [facility]ron GeneralComment on above:Performed By: #### [id number] #### [facility] [address], [place] [address]IHO Ql (U)21-98Gkevsnle7-0EbtqncWadsworth-Rittman HospitalComment on above:Performed By: #### [id number] #### [facility] [address] [place] [address]Jqfofqwy gravity (U) [Rel density]1.039Invalid Interpretation Code1.005-1.030[facility] GeneralComment on above:Performed By: #### [id number] #### [facility] [address] [place] [address]Cvctueitpchk (U) [Mass/Vol]NegativeNormalNegativeCleveland Clinic [facility] GeneralComment on above:Performed By: #### [id number] #### [facility] [address] [place] [address]YBG Auto (Urine sed) [#/Area]3-25Tdxvhjvt7-5DmcitqWadsworth-Rittman HospitalComment on above:Performed By: #### [id number] #### [facility] [address] [place] [address]Anvw of Urine collection methodClean CatchNormalCleveland Clinic Akron GeneralComment on above:Performed By: #### [id number] #### [facility] [address] [place] [address]KBZERBGRUBLukmigr By: SYSTEM SYSTEM on 66-48-2923Rxidbuov Auto Ql (U)Trace /HPFNormalTrace/HPFFTMC UA Auto SSBilirubin Ql (U)NegativeNormal Negativemg/dLFT UA Auto SSClarity (U)Turbid *ABN* (03/24/24 7:56 AM)Invalid Interpretation CodeClearFTMC UA Auto SSColor (U)Yellow 1 (03/24/24 7:56 AM)NormalYellowFT UA Auto SSComment on above:Interpretive Data: Microscopic readings are only performed on those samples that meet specific criteria set forth by [facility].Epithelial cells.squamous Auto (Urine sed) [#/Area]0-2 graded/HPFInvalid Interpretation CodeMER[facility] [place]A Auto SSGlucose Ql (U)NegativeNormalNegativemg/dLMERCY HOSPITAL [facility] UA Auto SS Hemoglobin Auto test strip (U) [Mass/Vol]NegativeNormalNegativemg/dLMERCY HOSPITAL [facility] [place] Auto SSHyaline casts LM Ql (Urine sed)0-3 graded/LPFNormal0-3graded/LPFFTMC UA Auto SSKetones Auto test strip Ql (U)NegativeNormalNegativemg/dLMERCY HOS[facility]ITAL [facility] [place] Auto SS Leukocyte esterase Auto test strip Ql (U)25 Rosemarie/uL Rosemarie/uLNormalNegativeLeu/uL [facility] UA Auto SSMucus Auto Ql (U)3+ graded/LPFInvalid Interpretation Code Negativegraded/LPFFTMC UA Auto SSNitrite Auto test strip Ql (U)NegativeNormal Negativemg/dLMERCY HOSPITAL [facility] [place] [facility] Auto SSpH (U)5.5 *NA* (03/24/24 7:56 AM)Invalid Interpretation Code5.0 - 9.0[facility]A Auto SSProtein Ql (U)1+ mg/dLInvalid Interpretation CodeNegativemg/dLMERCY HOSPITAL [facility] [place] Auto SSRBC Ql (U)21- 30 graded/HPFInvalid Interpretation Code0-3graded/HPFMERCY HOSPITAL [facility] [place] [facility] Auto SSSpecific gravity (U) [Rel density]1.039 *NA* (03/24/24 7:56 AM)Invalid Interpretation Code1.005 - 1.030FT UA Auto SS Urobilinogen (U) [Mass/Vol]NegativeNormalNegativemg/dLMERCY HOSPITAL [facility] [place] [facility] Auto SSWBC Auto (Urine sed) [#/Area]6-15 graded/HPFInvalid Interpretation Code0-5graded/HPFMERCY HOSPITAL [facility] [place] UA Auto SSURINALYSISOrdered By: Lorin Marks on 66-42-1243YA Spec DescClean Catch (03/24/24 7:56 AM)NormalFT UA Auto SSeGFRon 74-32-3019pBXJ57 mL/min/1.73 m2 Normal>=59[facility] GeneralComment on above:Performed By: #### [id number] #### [facility] [address], [place] [address]Ubvza Cytology ([facility])on 90-04-0569Jaarsvwgvhr exam Cytology (U) [Interp]Diagnosis InfoInvalid Interpretation [facility] Comment on above:Result Comment: A:Urine,Urine:Post Cystoscopy Void Interpretation - A few clusters of urothelial cells with mild atypia; as post cystoscopy voided urine, low grade papillary urothelial neoplasm can not be excluded. Clinical correlation is indicated. Adequate cellularity for evaluation. CPT 10347 MicroScopic Description - Adequacy - Gross Description Site ID:A color Yellow fixative Alcohol Specimen designated Urine received in alcohol preservative and labeled with the patient???s name, consists of 90ml clear yellow fluid. Electronically signed by : on: 02/27/2024 13:00:36Performed By: #### [id number] #### [facility] [address] [place] [address]Bpzwwixoe Patient Summaryon 41-95-9223Ahvbhmfdp Patient Summary Inpatient Patient Summary [address] [address] Clinical Summary Person Information Name: MUNIRA CHESTER Age: 73 Years : 1950 Sex: Female PCP: ANDREA GOLDEN DO Marital Status: Race: White Ethnicity: Non- or Language: Italian Visit Id: Visit Reason: MIXED INCONTINENCE Speciality: Acuity: Enc Type: Outpatient Med Service: Surgery Arrival: 02/24/2024 09:03:30 Discharge: Dispo Type: Address: [address] [place] [phone] Provider Notes: Diagnosis: Intrinsic sphincter deficiency (ISD); [...] day. fluticasone nasal (fluticasone 0.05 mg/inh Nasal [facility]) 2 Sprays Nasal Inhalation every day. fluticasone [...] Buchanan MD Consulting Physician: Referring Physician: Asuncion Buchanna MD Follow up: With: Address: When: Asuncion Buchanan Comments: Office to schedule follow up: cysto, urethral biopsy with fulguration under anesthesia Patient Education Information: [place] - Cystoscopy Discharge Instructions (CUSTOM)[facility] Main OR Intraoperative Recordon 62-51-6310Jyti OR Intraoperative RecordMain OR Intraoperative Record IntraOp Document Type FTURO Summary Primary Physician: Asuncion Buchanan MD Finalized Date/Time: 02/24/24 10:21:12 Pt. Name: MUNIRA CHESTER/Sex: 1950 Female Med Rec #: [id number] Physician: Asuncion Buchanan MD Financial #: [id number] Pt. Type: O Room/Bed: / Admit/Disch: 02/24/24 [...] Kimberly A Role Performed Surgeon - Primary Educational Interpreter - Primary Scrub - Primary Time In [...] Outcomes Met? Yes Last Modified By: Libby Gracia 02/24/24 10:06:11 Post-Care Text: The patient is [...] Libby Garcia 02/24/24 10:21 Libby Garcia 02/24/24 10:21[facility] HospitalMain OR Preoperative Recordon 40-79-5458Slxo OR Preoperative RecordMain OR Preoperative Record Holding Area Document Type FTURO Summary Primary Physician: Asuncion Buchanan MD Finalized Date/Time: 02/24/24 10:08:50 Pt. Name: MUNIRA CHESTER/Sex: 1950 Female Med Rec #: [id number] Physician: Asuncion Buchanan MD Financial #: [id number] Pt. Type: O Room/Bed: / Admit/Disch: 02/24/24 [...] or her perioperative plan of care The patient'sright to privacy is maintained Surgery Checklist FTURO Entry 1 Patient Birthday, ID Band Procedure Surgical Consent, With Identification: Check, Patient Verification: Patient Participation NPO after Midnight: n/a Personal Items: Glasses Limitations: up ad drea Complaints of Pain: No Skin Integrity Intact, [place], Warm, & Dry Vitals - EU Blood Pressure 151/84 Pulse 73 bpm Respirations 18 br/min SPO2 98 % Additional None RN Reviewed Yes Specimens Collected Last Modified By: Libby Garcia 02/24/24 10:08:49 Finalized By: Libby Garcia Document Signatures Signed By: Meeta Valenzuela LPN 02/24/24 09:32 Libby Garcia 02/24/24 10:08[facility] HospitalOperative Reporton 71-26-6035Krdftncnk ReportOperative Report Patient: MUNIRA CHESTER Age: 73 years Sex: Female : 1950 Associated Diagnoses: None Author: Asuncion Buchanan MD Procedure Operative Information Details: Date/ Time: 02/24/2024 10:21:00. Pre-Op Dx: Mixed Urinary Incontinence - N39.46. 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 Anesthesia Type: Local. Procedure: [...] -Will schedule Bulkamid under anesthesia once biopsy results..[facility] HospitalComment on above:Result Comment: Electronically Signed By: Dewayne VILLEGAS, Asuncion [place]\.melissa\Date and Time Signed: 02/24/24 10:26ESTOutpatient Surgery Discharge Instructionon 67-21-8230Tesieqiorm Surgery Discharge Instruction Outpatient Surgery Discharge Instruction [place] [id number] Patient Discharge Instructions PERSON INFORMATION Name: MUNIRA CHESTER Date of : 1950 Current Date: 02/24/2024 10:20:30 PHYSICIANS Admitting Physician: Asuncion Buchanan MD Comment: Discharge Diagnosis: Intrinsic sphincter deficiency (ISD); Mixed incontinence; Urethral caruncle; Urethral tumor MUNIRA CHESTER has been given the following list of follow-up instructions, prescriptions, andpatient education materials: IF UNABLE TO CONTACT YOUR [...] when discharge instructions were given Patient Signature Date Clinican/Nurse Signature Date You may receive a survey from Mike Frias asking you to rate your care experience. Your feedback is important and will help us understand what we do well and how we can improve the quality of care we provide to you, your loved ones and our community. It???s an honor to serve you. [facility] HospitalUrine Cytology ([facility])on 40-25-5600SC Method of ExtractionPost Cysto VoidNoTriHealth Bethesda Butler HospitalComment on above:Performed By: #### [id number] #### [facility] [address], [place] [address]NB Number of Ppyd9Ddlrhno Interpretation [facility] SystemComment on above:Performed By: #### [id number] #### [facility] [address], [place] [address]TK SpecimenUrineNoTriHealth Bethesda Butler HospitalComment on above:Performed By: #### [id number] #### [facility] [address], [place] [address]MJ Type of ServiceTechnical OnlyClinton Memorial HospitalComment on above:Performed By: #### [id number] #### [facility] [address] [facility], [place] [address]Qfhzppp Office/Clinic Noteon 36-88-0752Evdpsib Office/Clinic NoteUrology Office/Clinic Note Chief Complaint 1 yr f/u, [...] stress predominant mixed urinary incontinence and recurrent UTIsand to discuss a procedure for the incontinence. [...] her ROSA MARIA, risks and benefits discussed. Higherdry rate with risk of complications with sling vs Bulkamid- lower risk, potential lower rate of dry. Would refer to tertiary center for sling given hx of vaginal mesh removal. Needs cysto and pelvic exam to evaluate candidacy for procedures given no leakage was noted at lastpelvic exam and hx of mesh. Risks/benefits discussed. She would like to proceed PVR 01/31/22 - 0ml Today - 0 ml Pt states that she feels she is not emptying, will empty and then 5 minutes later, she had the urgeto void. Advised pt of the possible causes [...] Macrobid after sex consiste (more content not included)...[facility] HospitalComment on above:Result Comment: Electronically Signed By: Dewayne VILLEGAS, Asuncion [place]\.br\Date and Time Signed: 02/05/24 12:35EST\.br\Electronically Co-Signed By: Aide Valdes\.br\Date and Time Co-Signed: 02/05/24 11:50 [facility] Urineon 85-42-2942Bsgdhyfm identified Cx Nom (U)Microbiology PROCEDURE: Urine Culture [R1] SOURCE: U CleanCatch BODY SITE: COLLECTED DATE/TIME: 12/27/2023 10:45 EDT RECEIVED DATE/TIME: 12/27/2023 18:04 EDT START DATE/TIME: 12/27/2023 18:04 EDT FREE TEXT SOURCE: Dewayne VILLEGAS, Asuncion Buchanan MD, Asuncion [place] FINAL REPORTS Final Report [] Verified Date/Time: 12/30/2023 11:59 EDT 400 cfu/ml Mixed skin contaminants Performing Locations R1: This test was performed at: [facility], [address] [place] [address], [address]- , , JkktzjGvoldyTriHealth Bethesda Butler HospitalComment on above:Performed By: #### [id number] #### [facility] [address] [place] [id number] 33-40-2117QCYJMdctmq Visit (GGENMN) MUNIRA CHESTER ([id number]) 1950 F Date Time Provider Department 12/27/23 [...] balloon enteroscopy Kasey Fallon MD 12/27/2023 Staff [employer] [facility] [place] [facility] , REFERRING PROVIDER: Jones Ace [address] [facility] [id number] REASON FOR REFERRAL: Small bowel stricture HISTORY: [...] Inhale 1 Inhalation as instructed once daily. Ayuzjctkee-Fzazfaxsqodbk-Balf (FIORICET) 50-300-40 mg cap Take by mouth. EPINEPHrine (EPIPEN) 0.3 mg/0.3 mL auto-injector Inject 0.3 mg intramuscularly as needed. fluticasone (FLONASE) 50 mcg/actuation nasal spray Use 1 [place] Michael in each nostril once daily. atorvastatin (LIPITOR) [...] DEGEN ESOPHAGEAL REFLUX HYPERTENSION (more content not included)...NormalCommunity [facility] Hospital on [id number] (GASTA5) MUNIRA CHESTER ([id number]) 1950 F Date Time Provider Department 12/25/23 [...] or can cx. Call cell phone at [phone]. MARIA D Hilliard Ann, RN 12/26/2023 9:10 [...] Fully Assessed Reason for Visit: Patient Question [6544] Prescriptions as of 12/26/2023 - fluticasone-vilanterol (BREO ELLIPTA) 100-25 mcg/dose inhaler Inhale 1 Inhalation as instructed once daily. - Uybaqvxzbn-Ssznisfzlzuql-Dgke (FIORICET) 50-300-40 mg cap Take by mouth. - EPINEPHrine (EPIPEN) 0.3 mg/0.3 mL auto-injector Inject 0.3 mg intramuscularly as needed. - fluticasone (FLONASE) 50 mcg/actuation nasal spray Use 1 [place] Michael in each nostril once daily. - atorvastatin [...] [M*04/11/2016 Encounter Status:Closed by HOLLIS MCKEON on 12/25/23NoHenry [facility] Hospital RF Small bowel Views W contrast Rhys 08-16-4307KDCYGZQBEL: Slow transit. No dilated small bowel. No visualized stricture. P[facility] Hel[facility] Transcribe Date/Time: Dec 24 2023 3:37P Dictated by : HAYDEN REEVES MD This examination was interpreted and the report reviewed and electronically signed by: HAYDEN REEVES MD on Dec 24 2023 3:40PM [facility] DIVISION OF RADIOLOGY* * *Final Report* * * DATE OF EXAM: Dec 24 2023 2:18PM HGX 5383 - XR SMALL BOWEL SERIES / PROCEDURE REASON: Other partial intestinal obstruction (HCC) * * * * Physician Interpretation * * * * SMALL BOWEL SERIES CLINICAL INFORMATION: Small bowel stricture. TECHNIQUE: Small bowel series with overhead and fluoroscopic spot films. Contrast: ORAL: 855 ml of EZPAQUE RESULT: Steak Sauce Maker radiograph shows no dilated bowel loops. Right upper quadrant surgical clips. Contrast was ingested orally. By 60 minutes, contrast fills normal caliber and fold pattern jejunum and proximal and mid ileum. Subsequently there was very slow transit. Study was terminated at 240 minutes with small amount of contrast in colon. No small bowel dilation or focal area of narrowing identified. DIVISION OF RADIOLOGYProvider, [facility] [place] - 12/24/2023 * * *Final Report* * [...] Contrast: ORAL: 855 ml of EZPAQUE RESULT: Steak Sauce Maker radiograph shows no dilated bowel loops. Right [...] No dilated small bowel. No visualized stricture. Pugger Helper: [facility] Transcribe Date/Time: Dec 24 2023 3:37P Dictated by : HAYDEN REEVES MD This examination was interpreted and the report reviewed and electronically signed by: HAYDEN REEVES MD on Dec 24 2023 3:40PM EST [facility] HospitalRadiology Study observation (narrative)[facility] HospitalRF Small bowel Views W contrast POOrdered By: Cc Provider on 82-48-7362Xmahwlfjc Clinic XR SMALL BOWEL SERIESon 61-14-4667JU SMALL BOWEL SERIES* * *Final Report* * * DATE OF EXAM: Dec 24 2023 2:18PM HGX 5383 - XR SMALL BOWEL SERIES / PROCEDURE REASON: Other partial intestinal obstruction (HCC) * * * * Physician Interpretation * * * * SMALL BOWEL SERIES CLINICAL INFORMATION: Small bowel stricture. TECHNIQUE: Small bowel series with overhead and fluoroscopic spot films. Contrast: ORAL: 855 ml of EZPAQUE RESULT: Steak Sauce Maker radiograph shows no dilated bowel loops. Right [...] No dilated small bowel. No visualized stricture. Pugger Helper: [facility] Transcribe Date/Time: Dec 24 2023 3:37P Dictated by : HAYDEN REEVES MD This examination was interpreted and the report reviewed and electronically signed by: HAYDEN REEVES MD on Dec 24 2023 3:40PM EST [id number] Medical Specialty [facility], Inc [id number] Telephone (GASTA5) MUNIRA CHESTER ([id number]) 1950 F Date Time Provider Department 12/04/23 [...] 1 Inhalation as instructed once daily. - Hhybwtjpzi-Aqpfccdbuxwyn-Pfvo (FIORICET) 50-300-40 mg cap Take by mouth. - EPINEPHrine (EPIPEN) 0.3 mg/0.3 mL auto-injector Inject 0.3 mg intramuscularly as needed. - fluticasone (FLONASE) 50 mcg/actuation nasal spray Use 1 [place] Michael in each nostril once daily. - atorvastatin [...] [M*04/11/2016 Encounter Status:Closed by HOLLIS MCKEON on 12/04/23NoHenry [facility] Hospital Basophils Auto (Bld) [#/Vol]on 13-61-5631Ezzfnqrbf (Bld) [#/Vol]Automated basophil count0.0-0.1FFlower HospitalBasophils/100 WBC Auto (Bld)on 69-06-7096Rbqczxzbc/100 WBC (Bld)Automated basophil %0.2-2.0[facility] CenterEosinophils/100 WBC Auto (Bld)on 11-22-2023 Eosinophils/100 WBC (Bld)Automated eosinophil %High0.9-7.0[facility] CenterErythrocyte distribution width Auto (RBC) [Ratio]on 11-22-2023 Erythrocyte distribution width (RBC) [Ratio]Erythrocyte distribution width [Ratio] by Automated count11.0-15.0[facility] CenterEstimated glomerular filtration rate (GFR) non- Americanon 41-86-2773SBA/1.73 sq M.predicted among non-blacks MDRD (S/P/Bld) [Vol rate/Area]Estimated glomerular filtration rate (GFR) non->=60[facility] Globulin Calc (S) [Mass/Vol]on 46-01-2460Rjiajvba (S) [Mass/Vol]Serum globulin measurement by calculation (mass/volume)[facility] Hematocrit Auto (Bld) [Volume fraction]on 98-22-5004Tgdyybytra (Bld) [Volume fraction]Hematocrit [Volume Fraction] of Blood by Automated count36.0-48.0 [facility] CenterHemoglobin [Mass/volume] in Bloodon 11-22-2023 Hemoglobin (Bld) [Mass/Vol]Hemoglobin [Mass/volume] in Blood12.0-16.0[facility] CenterIron binding capacity [Mass/volume] in Serum or Plasmaon 13-96-1835Vufd binding capacity [Mass/Vol]Iron binding capacity [Mass/volume] in Serum or Lpflhv412.0-450.0[facility] CenterIron saturation [Mass Fraction] in Serum or Plasmaon 14-68-1428Joab saturation [Mass fraction] Iron saturation [Mass Fraction] in Serum or PlasmaCincinnati Va Medical CenterLaboratory - Chemistry and Chemistry - challengeon 14-17-7346Qjoacef [Mass/Vol]3.7 g/dL3.4-5.0[facility] CenterALP [Catalytic activity/Vol]80 U/H59-486FdygobsvlCincinnati Va Medical CenterALT [Catalytic activity/Vol]26 U/G42-21QwbcdkdceCincinnati Va Medical CenterAST [Catalytic activity/Vol]21 U/W20-52HehbfdnvjCincinnati Va Medical CenterBilirubin [Mass/Vol]0.5 mg/dL0.2-1.0[facility] CenterCalcium [Mass/Vol]9.0 mg/dL 8.5-10.1FFlower HospitalChloride [Moles/Vol]104 mmol/L98-107 [facility] CenterCO2 [Moles/Vol]29.7 mmol/L21.0-32.0[facility] CenterCreatinine [Mass/Vol]0.85 mg/dL0.55-1.02[facility] CenterFerritin [Mass/Vol]30.0 ng/mL8.0-252.0[facility] CenterGFR/1.73 sq M.predicted MDRD (S/P/Bld) [Vol rate/Area] mL/min/{1.73_m2}>=60[facility] CenterGlucose [Mass/Vol]103 mg/dL 74-106[facility] CenterIron [Mass/Vol]71.0 ug/dL50.0-170.0 [facility] CenterPotassium [Moles/Vol]3.6 mmol/L3.5-5.1FFlower HospitalProtein [Mass/Vol]6.6 g/dL6.4-8.2FMadison Healthodium [Moles/Vol]143 mmol/X909-322NpplzsmoxCincinnati Va Medical CenterUrea nitrogen [Mass/Vol]16.0 mg/dL7.0-18.0[facility] CenterUrea nitrogen/Creatinine [Mass ratio]18.8 mg/mgCincinnati Va Medical CenterLaboratory - Hematology and Cell countson 71-32-8171Fujqjucv granulocytes/100 WBC (Bld)0.3 %0.0-0.5FFlower Hospital Leukocytes [#/volume] corrected for nucleated erythrocytes in Blood by Automated counon 60-92-5487OPB corrected for nucl RBC Auto (Bld) [#/Vol]Leukocytes [#/volume] corrected for nucleated erythrocytes in Blood by Automated coun 4.0-11.0[facility] CenterLymphocytes Auto (Bld) [#/Vol]on 92-90-2487Avozkseyegk (Bld) [#/Vol]Lymphocytes [#/volume] in Blood by Automated count1.2-3.8[facility] CenterLymphocytes/100 WBC Auto (Bld)on 73-73-0191Clmpaalojso/100 WBC (Bld)Lymphocytes/100 leukocytes in Blood by Automated count20.5-60.0[facility] HospitalH Auto (RBC) [Entitic mass]on 02-53-3473PVL (RBC) [Entitic mass]MCH [Entitic mass] by Automated count 26.7-34.0[facility] Medical CenterMCHC Auto (RBC) [Mass/Vol]on 10-68-2484POCW (RBC) [Mass/Vol]MCHC [Mass/volume] by Automated count29.9-35.2 [facility] CenterMCV Auto (RBC) [Entitic vol]on 19-41-0707FEA (RBC) [Entitic vol]MCV [Entitic volume] by Automated count81.0-99.0[facility] CenterMonocytes Auto (Bld) [#/Vol]on 04-08-4529Pryvzxcso (Bld) [#/Vol]Automated blood monocyte count0.3-0.8[facility] Monocytes/100 WBC Auto (Bld)on 98-16-4987Nleapnbmw/100 WBC (Bld)Automated monocyte %1.7-12.0[facility] CenterNeutrophils Auto (Bld) [#/Vol]on 71-62-2769Wxcyhmotdcv (Bld) [#/Vol]Neutrophils [#/volume] in Blood by Automated count1.4-6.5FFlower HospitalNeutrophils/100 WBC Auto (Bld)on 07-52-4081Bmlwnebzwqu/100 WBC (Bld)Automated neutrophil %43.0-75.0 [facility] CenterNo Panel Informationon 24-46-4888Xyrgfihfclk # (Auto)0.6 10 3/uL0.0-0.7FFlower HospitalImmature Granulocyte # (Auto)0.02 10 3/uL0.00-0.03[facility] Medical CenterPlatelet mean volume Auto (Bld) [Entitic vol]on 09-65-3348Vrjzarrz mean volume (Bld) [Entitic vol] Platelet mean volume [Entitic volume] in Blood by Automated count9.5-13.5 [facility] CenterPlatelets Auto (Bld) [#/Vol]on 11-22-2023 Platelets (Bld) [#/Vol]Platelets [#/volume] in Blood by Automated agzbh129-232 [facility] CenterRBC Auto (Bld) [#/Vol]on 25-53-4988JVI (Bld) [#/Vol]Erythrocytes [#/volume] in Blood by Automated count4.20-5.40Providence Hospitalerum or plasma albumin/globulin mass ratioon 11-22-2023 Albumin/Globulin [Mass ratio]Serum or plasma albumin/globulin mass ratio Providence Hospitalerum or plasma anion gap determinationon 60-22-8727Uvnnq gap [Moles/Vol]Serum or plasma anion gap determinationCincinnati Va Medical CenterCNPNon 22-65-2496AZKIIqqdhasuv (GASTA5) MUNIRA CHESTER ([id number]) 1950 F Date Time Provider Department 10/31/23 [...] Fully Assessed Reason for Visit: Patient Question [7860] Prescriptions as of 10/31/2023 - fluticasone-vilanterol (BREO ELLIPTA) 100-25 mcg/dose inhaler Inhale 1 Inhalation as instructed once daily. - Bzpqvnlrno-Xmgyddqytedqp-Ezuk (FIORICET) 50-300-40 mg cap Take by mouth. - EPINEPHrine (EPIPEN) 0.3 mg/0.3 mL auto-injector Inject 0.3 mg intramuscularly as needed. - fluticasone (FLONASE) 50 mcg/actuation nasal spray Use 1 [place] Michael in each nostril once daily. - atorvastatin [...] [M*04/11/2016 Encounter Status:Closed by REHANA HOANG on 10/31/23[facility] 59-18-2055WKAXQcuujivpv (GASTA5) MUNIRA CHESTER ([id number]) 1950 F Date Time Provider Department 10/16/23 [facility] PROVIDER GASTLexus During your visit today, we recorded the following information about you: Hollis Mckeon RN 10/16/2023 1:52 PM Signed Faxed referral received on 10/15/23 for pt sent from Dr. Ace from [facility] to attention Dr. Fallon, for pt for [...] 1 Inhalation as instructed once daily. - Qurzzqtnww-Xuoblocyfyjla-Iuqd (FIORICET) 50-300-40 mg cap Take by mouth. - EPINEPHrine (EPIPEN) 0.3 mg/0.3 mL auto-injector Inject 0.3 mg intramuscularly as needed. - fluticasone (FLONASE) 50 mcg/actuation nasal spray Use 1 [place] in each nostril once daily. - atorvastatin [...] [M*04/11/2016 Encounter Status:Closed by HOLLIS MCKEON on 10/16/23[place] Physician Referralon 98-26-3394Zplgygtta Referral [id number]#1.00TIFJoint Township District Memorial HospitalTelephoneon [id number] Munira Chester 1950 F Date Provider Department Center 09/05/2023 [facility] No family history on fileNormalUniversity of Houston Methodist Clear Lake HospitalTelephoneon [id number] Munira Chester 1950 F Date Provider Department Center 08/28/2023 [facility] CITYRa[facility] No family history on fileNormalUniversity of Houston Methodist Clear Lake HospitalPhysician Referralon 75-67-6146Vppoybhfz Referral [id number]#1.00TIFJoint Township District Memorial HospitalAmbulatory Visit Summaryon 71-76-5442Cdlqclgvuv Visit Summary MUNIRA CHESTER :1950 Visit Date:08/15/2023 [...] Tab) fluticasone nasal (fluticasone 0.05 mg/inh Nasal [place] Michael) fluticasone/umeclidinium/vilanterol (Trelegy Ellipta) iron polysaccharide (Ferrex-150) levothyroxine (levothyroxine 88 mcg (0.088 mg) Tab) nitrofurantoin (Macrobid 100 mg Cap) pantoprazole (Pantoprazole [address] Tab) Procedures Performed Colonoscopy (05/22/2023), Esophagogastroduodenoscopy (05/22/2023), Colonoscopy (09/07/2019), EGD - Esophagogastroduodenoscopy (09/07/2019), Colonoscopy [...] VILLEGAS, Asuncion [place] [facility]Gastroenterology Office/Clinic Noteon 08-15-2023 Gastroenterology Office/Clinic NoteChief Complaint follow up to capsule HPI Staff [...] treat small bowel stricture. Options will be toobtain CT enterography but she is hesitant given [...] Reflux of urine Procedure/Surgical History Colonoscopy (05/22/2023), Esophagogastroduodenoscopy (05/22/2023), Colonoscopy (09/07/2019), EGD - Esophagogastroduodenoscopy (09/07/2019), Colonoscopy (01/16/2015), EGD - Esophagogastroduodenoscopy (01/16/2015), (more content not included)...[facility] HospitalComment on above:Result Comment: Electronically Signed By: Tho VILLEGAS, Del Duckworth\.br\Date and Time Signed: 08/15/2407:55 EDTCT MAXILLOFACIAL W/O CONTRASTon 07-25-2023 Exam Date/Time: 07/23/2023 07:58 EDT Reason for [...] Bravo Hurst DO Transcribed by: SAHIL Technologist: [facility]OSPITALRadiology, Radiologist, - 07/25/2023 Exam Date/Time: 07/23/2023 07:58 EDT [...] Hurst DO Transcribed by: SAHIL Technologist: KE CRABTREE HealthcareCT MAXILLOFACIAL W/O CONTRASTOrdered By: Radiologist Radiology on 61-83-7912FIQV Fididel Work Phone: cT Maxillofacial w/o Contraston 01-71-2739IT Maxillofacial w/o ContrastExam Date/Time: 07/23/2023 07:58 EDT Reason for Exam: [...] Bravo Hurst DO Transcribed by: SAHIL Technologist: [facility] HospitalCT MAXILLOFACIAL W/O CONTRASTon 08-62-0777Jwmyspxhz Study observation (narrative) [facility] CenterConsent for Treatmenton 80-96-9946Vwimluu for Treatment [id number]#1.00TIFJoint Township District Memorial HospitalConsent for Procedure/Surgeryon 95-93-2219Snxwgsi for Procedure/Surgery [id number]#1.00TIFJoint Township District Memorial HospitalNurse Consultation Noteon 48-33-8605Imwpu Consultation NoteAssessment/Plan Patient tolerated the capsule and verified understanding of instructions. Medications amLODIPine 5 mg Tab, 5 mg= 1 tab(s), Oral, Daily atorvastatin 10 mg Tab, 10 mg= 1 tab(s), Oral, Daily EpiPen 2-Giovani, 0.3 mg, IntraMuscular, Once, PRN, Not taking estradiol 0.1 mg/g Vag Crm, See Instructions famotidine 20 mg Tab, Oral, BID Ferrex-150, 150 mg, Oral, Every other day fluticasone 0.05 mg/inh Nasal [place] Michael, 2 spray(s), Nasal, Daily Fosamax 70 mg [...] virus vaccine, inactivated 12/31/2022 Recorded SARS-CoV-2 (COVID-19) mRNAMUL.ORD![id number] 12/22/2021 Recorded influenza virus vaccine, inactivated 12/18/2021 [...] 01/04/2016 Recorded influenza virus vaccine, inactivated 01/04/2016 RecordedClinton Memorial HospitalXR Abdomen 1 Viewon 67-08-6731CO Abdomen 1 ViewExam Date/Time: 07/05/2023 12:19 EDT Reason for Exam: [...] Ka,r in mGy = na DAP = naNormalFisher Meritus Medical CenterConsent for Treatmenton 07-05-2023 Consent for [id number]#1.00TIFFNormal [facility] GeneralNurse Consultation Noteon 70-93-9646Rcusl Consultation NoteAssessment/Plan Patient tolerated swallowing the capsule. Verified understanding of instructions. Medications amLODIPine 5 mg Tab, 5 mg= 1 tab(s), Oral, Daily atorvastatin 10 mg Tab, 10 mg= 1 tab(s), Oral, Daily EpiPen 2-Giovani, 0.3 mg, IntraMuscular, Once, PRN, Not taking estradiol 0.1 mg/g Vag Crm, See Instructions famotidine 20 mg Tab, Oral, BID Ferrex-150, 150 mg, Oral, Every other day fluticasone 0.05 mg/inh Nasal [place], 2 spray(s), Nasal, Daily Fosamax 70 mg [...] virus vaccine, inactivated 12/31/2022 Recorded SARS-CoV-2 (COVID-19) mRNAMUL.ORD![id number] 12/22/2021 Recorded influenza virus vaccine, inactivated 12/18/2021 [...] 01/04/2016 Recorded influenza virus vaccine, inactivated 01/04/2016 RecordedNoTriHealth Bethesda Butler HospitalPhysician Orderon 52-55-8245Gtmvjtbhl Order [id number]#1.00TIFFNoTriHealth Bethesda Butler HospitalAlbumin [Mass/volume] in Serum or Plasmaon 90-01-4234Fdxjhgm [Mass/Vol]3.6 g/dL2.9-4.4FFlower HospitalIgA [Mass/volume] in Serum or Plasmaon 00-41-9680KbI [Mass/Vol]83 mg/jG15-281KgyfedgevCincinnati Va Medical Center IgE [Units/volume] in Serum or Plasmaon 05-83-2305JdW Qn119 [IU]/mL6-495 [facility] CenterComment on above:Performed at: - [facility] [id number] Director: Chay Stewart MD, Phone: [phone] [Mass/volume] in Serum or Plasmaon 91-55-7553KvG [Mass/Vol]509 mg/jN949-8522CcfkzjhfkCincinnati Va Medical CenterIgM [Mass/volume] in Serum or Plasmaon 56-88-7583GzT [Mass/Vol]51 mg/wE30-255IuzjzqeudCincinnati Va Medical CenterImmunoglobulin light chains.kappa.free [Mass/volume] in Serumon 36-28-7012Knpkarbtvrtpgz light chains.kappa.free (S) [Mass/Vol]12.1 mg/L3.3-19.4 [facility] CenterImmunoglobulin light chains.kappa.free/Immunoglobulin light chains.lambda.free [Yony 07-02-2023 Immunoglobulin light chains.kappa.free/Immunoglobulin light chains.lambda.free (S) [Mass ratio]1.130.26-1.65[facility] CenterComment on above: Performed at: - [facility] [address] [id number] Director: Bj Hair PhD, Phone: [phone] light chains.lambda.free [Mass/volume] in Serum or Plasmaon 78-27-0117Mdfidinehjtffe light chains.lambda.free [Mass/Vol]10.7 mg/L5.7-26.3FFlower HospitalNo Panel Informationon 40-75-1241Epzjkhi Electrophoresis M-SpikeNot Observed g/dLNot ObservedCincinnati Va Medical CenterProtein Electrophoresis NoteComment.[facility] CenterComment on above: Protein electrophoresis scan will follow via computer,mail, or panel monitor delivery. Protein [Mass/volume] in Serum or Plasmaon 68-63-3796Giicyvw [Mass/Vol]6.1 g/dL 6.0-8.5FMadison Healtherum globulin measurement (mass/volume) on 39-85-3886Hhndmqfv (S) [Mass/Vol]2.5 g/dL2.2-3.9Providence Hospitalerum or plasma albumin/globulin mass ratioon 75-83-2097Rwcebnc/Globulin [Mass ratio]1.5 {ratio}0.7-1.7FMadison Healtherum or plasma alpha 1 globulin measurement by electrophoresis (mass/volume)on 86-97-7841Fusio 1 globulin Elph [Mass/Vol]0.2 g/dL0.0-0.4FMadison Healtherum or plasma alpha 2 globulin measurement by electrophoresis (mass/volume)on 00-21-5623Guqxi 2 globulin Elph [Mass/Vol]0.9 g/dL0.4-1.0Providence Hospitalerum or plasma beta globulin measurement by electrophoresis (mass/volume)on 45-03-2978Dcpl globulin Elph [Mass/Vol]0.9 g/dL0.7-1.3FMadison Healtherum or plasma gamma globulin measurement by electrophoresis (mass/volume)on 23-73-9103Pssdy globulin Elph [Mass/Vol]0.5 g/dL 0.4-1.8Providence Hospitalerum or plasma immunoelectrophoresis interpretationon 98-23-3029Bsyzezuzzbqgwg IEP [Interp]Comment.[facility] CenterComment on above:No monoclonality detected.Basophils Auto (Bld) [#/Vol]on 79-09-7077Fgszygocx (Bld) [#/Vol]0.0 10 3/uL0.0-0.1FFlower HospitalBasophils/100 WBC Auto (Bld)on 06-37-8317Xzoazaapr/100 WBC (Bld) 0.2 %0.2-2.0[facility] CenterEosinophils/100 WBC Auto (Bld)on 13-86-5495Bltbvoknihl/100 WBC (Bld)0.2 %0.9-7.0[facility] Erythrocyte distribution width Auto (RBC) [Ratio]on 94-21-4467Zyzcefgrcgb distribution width (RBC) [Ratio]19.9 %11.0-15.0[facility] Hematocrit Auto (Bld) [Volume fraction]on 67-28-7127Fywmbihkhl (Bld) [Volume fraction]36.9 %36.0-48.0[facility] CenterHemoglobin [Mass/volume] in Bloodon 22-53-4799Yxstdunwyj (Bld) [Mass/Vol]12.0 g/dL12.0-16.0 [facility] CenterIron binding capacity [Mass/volume] in Serum or Plasmaon 00-05-5711Ldrc binding capacity [Mass/Vol]279.0 ug/dL250.0-450.0 [facility] CenterIron saturation [Mass Fraction] in Serum or Plasmaon 93-25-6727Ggpw saturation [Mass fraction]20.8 %[facility] CenterLaboratory - Chemistry and Chemistry - challengeon 06-27-2023 Ferritin [Mass/Vol]110.0 ng/mL8.0-252.0[facility] CenterIron [Mass/Vol]58.0 ug/dL50.0-170.0[facility] CenterLaboratory - Hematology and Cell countson 99-43-8762Xlebuaxq granulocytes/100 WBC (Bld)1.4 % 0.0-0.5FFlower HospitalLeukocytes [#/volume] corrected for nucleated erythrocytes in Blood by Automated counon 30-86-7543SAA corrected for nucl RBC Auto (Bld) [#/Vol]11.8 10 3/uL4.0-11.0[facility] Lymphocytes Auto (Bld) [#/Vol]on 86-39-3051Nlehnneljai (Bld) [#/Vol]2.2 10 3/uL 1.2-3.8[facility] CenterLymphocytes/100 WBC Auto (Bld)on 48-64-6453Issgiwlzmoh/100 WBC (Bld)18.3 %20.5-60.0[facility] Auto (RBC) [Entitic mass]on 77-75-3088QAQ (RBC) [Entitic mass]28.6 pg 26.7-34.0[facility] Auto (RBC) [Mass/Vol]on 14-17-9288KGYR (RBC) [Mass/Vol]32.5 g/dL29.9-35.2FFlower HospitalMCV Auto (RBC) [Entitic vol]on 65-32-0940OXY (RBC) [Entitic vol]87.9 fL 81.0-99.0[facility] CenterMonocytes Auto (Bld) [#/Vol]on 08-73-3395Fonzjuazo (Bld) [#/Vol]1.4 10 3/uL0.3-0.8[facility] CenterMonocytes/100 WBC Auto (Bld)on 14-46-8043Xzdwuzcix/100 WBC (Bld)11.8 % 1.7-12.0[facility] CenterNeutrophils Auto (Bld) [#/Vol]on 20-64-2947Cfixyssuyuc (Bld) [#/Vol]8.0 10 3/uL1.4-6.5FFlower HospitalNeutrophils/100 WBC Auto (Bld)on 17-60-1680Vrjtzwceznx/100 WBC (Bld)68.1 % 43.0-75.0[facility] CenterNo Panel Informationon 06-27-2023 Eosinophils # (Auto)0.0 10 3/uL0.0-0.7FFlower HospitalImmature Granulocyte # (Auto)0.17 10 3/uL0.00-0.03[facility] Platelet mean volume Auto (Bld) [Entitic vol]on 89-37-3958Bumihjkn mean volume (Bld) [Entitic vol]9.7 fL9.5-13.5FFlower HospitalPlatelets Auto (Bld) [#/Vol]on 14-68-5201Pynskeytr (Bld) [#/Vol]378 10 3/pW250-885SwntrjfrcCincinnati Va Medical CenterRBC Auto (Bld) [#/Vol]on 72-72-3715MJW (Bld) [#/Vol]4.20 10 6/uL4.20-5.40[facility] CenterGastroenterology Office/Clinic Noteon 08-78-5242Etjqoihrmkgbpbua Office/Clinic NoteChief Complaint follow up to EGD/colon HPI Staff [...] Reflux of urine Procedure/Surgical History Colonoscopy (05/22/2023), Esophagogastroduodenoscopy (05/22/2023), Colonoscopy (09/07/2019), EGD - Esophagogastroduodenoscopy (09/07/2019), Colonoscopy [...] Every other day fluticasone 0.05 mg/inh Nasal [place], 2 spray(s), Nasal, Daily Fosamax 70 mg Tab, 70 mg= 1 tab(s), Oral, qWeek levothyroxine 88 mcg (0.088 mg) Tab, 88 mcg= 1 tab(s), Oral, Daily Macrobid 100 mg Cap, 100 mg= 1 cap(s), Oral, As Directed, 3 refills, Not (more content not included)...[facility] HospitalComment on above:Result Comment: Electronically Signed By: Tho VILLEGAS, Del Duckworth\.br\Date and Time Signed: 05/30/2407:31 EDTOther Comment: errorGastroenterology Office/Clinic Note Chief Complaint follow up to [...] Reflux of urine Procedure/Surgical History Colonoscopy (05/22/2023), Esophagogastroduodenoscopy (05/22/2023), Co (more content not included)...[facility] HospitalComment on above:Result Comment: Electronically Signed By: Del Nettles MD\.br\Date and Time Signed: 05/30/2407:34 EDTIntraOperative Documentson 27-58-0710UgrkeFzmclgzvt [id number]#1.00TIFFNoTriHealth Bethesda Butler HospitalMain OR Intraoperative Recordon 49-50-3774Aeby OR Intraoperative RecordIntraOp Document Type FT Summary Primary Physician: Del Nettles MD Finalized Date/Time: 05/24/23 14:03:51 Pt. Name: MUNIRA CHESTER/Sex: 1950 Female Med Rec #: [id number] Physician: Del Nettles MD Financial #: [id number] Pt. Type: O Room/Bed: / Admit/Disch: 05/22/23 [...] 2 Entry 3 Case Attendee Samara Goldstein CRNA RN, Arelis Jenkins Role Performed IMPROVEMENT AUDITOR Educational Interpreter - Primary Scrub - Primary Time In [...] Goldstein CRNA, Given Participants Carrie KILLIAN, Neli Barrera, Arelis Tovar Sparks, Micala E, Tho VILLEGAS, Del Duckworth [...] and tissue Entry 1 Skin Integrity Intact, [place], Warm, and Skin Abnormality No Dry Outcomes Met? Yes Last Modified By: Neli Butler RN 05/22/23 08:18:09 Post-Care Text: The patient is free from signs and symptoms of injury caused by extraneous objects Patien (more content not included)...[facility] HospitalProgress Note-Physicianon 65-15-5677Iykxidrz Note-PhysicianPatient: MUNIRA CHESTER Age: 72 years Sex: Female [...] Problems Urinary tract infection / SNOMED CT 956488478 / Confirmed Urethral caruncle / SNOMED CT 03520594 / Confirmed Duodenal stricture / SNOMED CT 86767648 / Confirmed Recurrent UTI / SNOMED CT 777551406 / Confirmed Osteopenia of lumbar spine / SNOMED CT 643514346 / Confirmed Nocturia / SNOMED CT 094486298 / Confirmed Mild persistent asthma / SNOMED CT 3099473082 / Confirmed Migraine / SNOMED CT 61212343 / Confirmed Microscopic hematuria / SNOMED CT 913660368 / Confirmed Lumbar spondylosis / SNOMED CT 064571234 / Confirmed Mixed incontinence / SNOMED CT 97046749 / Confirmed Hypertension / SNOMED CT 8424664183 / Confirmed Hyperlipidemia / SNOMED CT 87459532 / Confirmed Personal history of colonic polyps / SNOMED CT 6168136887 / Confirmed History of gastric ulcer / SNOMED CT 596423922 / Confirmed H/O gastric ulcer / SNOMED CT 507103955 / Confirmed Graves disease / SNOMED CT 111589888 / Confirmed GERD (gastroesophageal reflux disease) / SNOMED CT 420643744 / Confirmed Incomplete bladder emptying / SNOMED CT 174889043 / Confirmed Epigastric pain / SNOMED CT 870737023 / Confirmed Chronic tension headache / SNOMED CT 779744269 / Confirmed Cervical spondylosis / SNOMED CT 1774683452 / Confirmed Bilateral cataracts / SNOMED CT 104365111 / Confirmed Benign essential hypertension / SNOMED CT 9188300 / Confirmed Hypothyroidism, acquired, autoimmune / SNOMED CT 552026913 / Confirmed Asymptomatic microscopic hematuria / SNOMED CT 4281447633 / Confirmed Asthma / SNOMED CT 725908203 / Confirmed Arthritis / SNOMED CT 2422357 / Confirmed Acute allergic rhinitis due to pollen / SNOMED CT 25179088 / Confirmed Abdominal bloating / SNOMED CT 652601015 / Confirmed Resolved: Reflux of urine / SNOMED CT 3988694337 Histories Procedure history: Colonoscopy (438106094) on 09/07/2019 at 69 Years. EGD - Esophagogastroduodenoscopy (4586890636) on 09/07/2019 at 69 Years. EGD - Esophagogastroduodenoscopy (0534766452) on 01/16/2015 at 64 Years. Colonoscopy (069639960) on 01/16/2015 at 64 Years. Comments: 08/31/2019 16:19 EDT - Tonie Barragan LPN normal EGD - Esophagogastroduodenoscopy (8548033524) on 08/17/2011 at 61 Years. EGD - Esophagogastroduodenoscopy (2683138893) on 05/17/2011 at 60 Years. Laparoscopic cholecystectomy (91574320) on 06/16/2010 at 59 Years. Colonoscopy (334480036) on 01/16/2010 at 59 Years. section (83977440). Rotator cuff repair (789921067). Tubal ligation (794550145). Cataracts (0567595657). Foot (82044850). Social History Social & Psychosocial Habits Alcohol 05/14/2023 Risk Assessment: Denies Alcohol Use Substance Abuse 05/14/2023 Risk Assessment: Denies Substance Abuse Tobacco 05/14/2023 Tobacco Use: Never (less than 100 in l Smokeless tobacco use: Never Concerns about tobacco use in household: No . Physical Examination Airway: Mallampati classification: II (soft palate, fauces, uvula visible). Respiratory: adequate air exchange. Cardiovascular: Regular rhythm. Plan [place] [employer]hesi[employer] (ASA) physical status classification: Class II. Anesthetic Preoperative Plan: Anesthesia General.[facility] HospitalComment on above:Result Comment: Electronically Signed By: Jay Jay Valderrama Jr, DO\.br\Date and Time Signed: 05/24/23 13:56 ESTProgress Note-Physician Patient: MUNIRA CHESTER Age: 72 years Sex: [...] Discharge when meets criteria ( To home ).[facility] HospitalComment on above:Result Comment: Electronically Signed By: Jay Jay Valderrama Jr, DO\Date and Time Signed: 05/24/23 13:53 ESTRAD - CT Reporton 89-91-3520TYE CT Report [id number]#1.00[facility] HospitalRAD - [facility] [id number]#1.00[facility] CenterConsenton 60-22-3848Nahmdte [id number]#1.00[facility] HospitalDischarge Instructionson 15-18-9385Rwtkmoymh Instructions [id number]#1.00[facility] HospitalPostoperative Documentson 98-34-7027Iecvfnlncstxc Documents [id number]#1.00[facility] HospitalColonoscopy Procedure Reporton 33-49-7013Ljdmjzqbbug Procedure Report Patient: MUNIRA CHESTER Age: 72 years Sex: Female : 1950 Associated Diagnoses: None Author: Del Nettles MD Pre-Procedure Procedure Date 05/22/2023 08:47:00 . Procedure Type: Colonoscopy. Procedure provider sd. Current history and physical Colonoscopy ([id number]) on 09/07/2019 at 69 Years. EGD - Esophagogastroduodenoscopy (4697016489) on 09/07/2019 at 69 Years. EGD - Esophagogastroduodenoscopy (2244271424) on 01/16/2015 at 64 Years. Colonoscopy (221355106) on 01/16/2015 at 64 Years. Comments: 08/31/2019 16:19 Tonie Ro LPN normal EGD - Esophagogastroduodenoscopy (0521119928) on 08/17/2011 at 61 Years. EGD - Esophagogastroduodenoscopy (4057876496) on 05/17/2011 at 60 Years. Laparoscopic cholecystectomy (94859088) on 06/16/2010 at 59 Years. Colonoscopy (466171094) on 01/16/2010 at 59 Years. section (). Rotator cuff repair (221607752). Tubal ligation (306604259). Cataracts (8899207423). Foot (48532737).. Past Medical History Resolved Reflux of urine (7176570920): Resolved.. Family History Rheumatoid arthritis Mother Primary malignant neoplasm of lung Mother Diabetes mellitus type 2 Father Primary malignant neoplasm of female breast Sister . Procedure History Colonoscopy (637126159) on 09/07/2019 at 69 Years. EGD - Esophagogastroduodenoscopy (9164094726) on 09/07/2019 at 69 Years. EGD - Esophagogastroduodenoscopy (1461245131) on 01/16/2015 at 64 Years. Colonoscopy (583877480) on 01/16/2015 at 64 Years. Comments: 08/31/2019 16:19 Tonie Ro LPN normal EGD - Esophagogastroduodenoscopy (9772802243) on 08/17/2011 at 61 Years. EGD - Esophagogastroduodenoscopy (5663132922) on 05/17/2011 at 60 Years. Laparoscopic cholecystectomy (13243740) on 06/16/2010 at 59 Years. Colonoscopy (401429240) on 01/16/2010 at 59 Years. section (19950388). Rotator cuff repair (737581759). Tubal ligation (813259362). Cataracts (9012860009). Foot (42582236).. Colorectal neoplasm risk assessment Average risk. Informed [...] infection., # 30 cap(s), Refills(s) 3, [facility], cm, 02/20/23 8:48:00 EST, Height/Length Dosing, 68.5, kg,... Pantoprazole [address] Tab: 40 mg = 1 tab(s), Oral, Daily, # 90 tab(s), Refills(s) 1, Pharmacy: [facility] [facility], 154.9, cm, 12/11/19 9:26:00 EDT, Height/Length Dosing, 70.2, kg, 12/11/19 9:26:00 EDT, Weight Dosing estradiol 0.1 mg/g Vag Crm: See Instructions, 42.5 gm, Refill(s) 0, apply pea sized amount to urethra 2x/wk, [facility], 158, cm, 02/20/23 8:48:00 EST, [...] of stomach acid fluticasone 0.05 mg/inh Nasal [place]: 2 spray(s), Nasal, Daily, Refill(s) 0 levothyroxine [...] procedure well. Findings Diverticul (more content not included)...[facility] Comment on above:Other Comment: Missing Attachment - attachment storage system not supported 9210461 Can be viewed in source systemMissing Attachment - attachment storage system not supported 6774846 Can be viewed insource systemMissing Attachment - attachment storage system not supported 6216132 Can be viewed in source systemMissing Attachment - attachment storage system not supported 0155120 Can be viewed in source systemMissing Attachment - attachment storage system not supported 3058828 Can be viewed in source systemMissing Attachment - attachment storage system not supported 0325024 Can be viewed in source systemMissing Attachment - attachment storage system not supported 4598309 Can be viewed in source systemMissing Attachment - attachment storage system not supported 7985534 Can be viewed in source systemConsent for Treatment on 50-77-4667Myxzolu for Treatment [id number]#1.00[facility] HospitalConsultation Noteon 24-57-3888Smxihspbhrvz NotePatient: MUNIRA CHESTER Age: 72 years Sex: Female : 1950 Associated Diagnoses: None Author: Tho VILLEGAS, Del Duckworth Pre-Procedure Procedure Date 05/22/2023 08:23:00 . Procedure Type: Esophagogastroduodenoscopy with biopsy. Pre-procedure diagnosis: Diagnostic: Anemia of [...] infection., # 30 cap(s), Refills(s) 3, Pharmacy: [facility], 158, cm, 02/20/23 8:48:00 EST, Height/Length Dosing, 68.5, kg,... Pantoprazole [address] Tab: 40 mg = 1 tab(s), Oral, Daily, # 90 tab(s), Refills(s) 1, [facility], 154.9, cm, 12/11/19 9:26:00 EDT, Height/Length Dosing, 70.2, kg, 12/11/19 9:26:00 EDT, Weight Dosing estradiol 0.1 mg/g Vag Crm: See Instructions, 42.5 gm, Refill(s) 0, apply pea sized amount to urethra 2x/wk, [facility], 158, cm, 02/20/23 8:48:00 EST, [...] of stomach acid fluticasone 0.05 mg/inh Nasal [place]: 2 spray(s), Nasal, Daily, Refill(s) 0 levothyroxine [...] obtained from the duodenum Images Procedure images: Rec1_hd_video_4_03_06T08_24_29_414.jpg Rec1_hd_video_4_03_06T08_24_44_784.jpg Rec1_hd_video_4_03_06T08_24_53_345.jpg Rec1_hd_video_4_03_06T08_25_03_390.jpg Rec1_hd_video_2024_03_06T08_25_23_607.jpg Rec1_hd_video_2024_03_06T08_25_30_290.jpg Rec1_hd_video_4_03_06T08_27_16_512.jpg Rec1_hd_video_4_03_06T08_27_56_296.jpg Rec1_hd_video_4_03_06T08_28_57_453.jpg Rec1_hd_video_2024_03_06T08_29_31_556.jpg Rec1_hd_video_2024_03_06T08_29_57_490.jpg . Post-Procedure Complications: none. Estimated blood loss: none. Specimens: sent to pathology. Devices/ implants: none left in place. Impression and Plan EGD: Diagnosis: Bile reflux gastritis (HPT72-UG K29.60, Working, Medical). Course: Progressing as expected. Education and Follow-up: Counseled: Family. Notes: Continue current medication Follow-up pathology report. might benefit from CT enterography versus capsule endoscopy in the futureNoHenry County HospitalComment on above:Result Comment: Electronically Signed By: Tho VILLEGAS, Del Duckworth\.br\Date and Time Signed: 05/21/2408:05 EST Other Comment: Missing Attachment - attachment storage system not supported [id number] Can be viewed in source systemMissing Attachment - attachment storage system not supported [id number] Can be viewed insource systemMissing Attachment - attachment storage system not supported 1397141 Can be viewed in source systemMissing Attachment - attachment storage system not supported 7473093 Can be viewed in source systemMissing Attachment - attachment storage system not supported 9053098 Can be viewed in source systemMissing Attachment - attachment storage system not supported 3751406 Can be viewed in source systemMissing Attachment - attachment storage system not supported 0651930 Can be viewed in source systemMissing Attachment - attachment storage system not supported 6782812 Can be viewed in source systemMissing Attachment - attachment storage system not supported 2920891 Can be viewed in sourcesystemMissing Attachment - attachment storage system not supported 7413751 Can be viewed in source s ystemMissing Attachment - attachment storage system not supported [id number] Can be viewed in source systemConsultation NotePatient: MUNIRA CHESTER Age: 72 years Sex: Female : 1950 Associated Diagnoses: None Author: Del Nettles MD Pre-Procedure Procedure Date 05/22/2023 08:47:00 . Procedure Type: Colonoscopy. Procedure provider me. Current history and physical Colonoscopy ([id number]) on 09/07/2019 at 69 Years. EGD - Esophagogastroduodenoscopy (5788017578) on 09/07/2019 at 69 Years. EGD - Esophagogastroduodenoscopy (0512419922) on 01/16/2015 at 64 Years. Colonoscopy (401277608) on 01/16/2015 at 64 Years. Comments: 08/31/2019 16:19 EDT - Yung NIETON, Tonie Esqueda normal EGD - Esophagogastroduodenoscopy (3859425423) on 08/17/2011 at 61 Years. EGD - Esophagogastroduodenoscopy (6936055975) on 05/17/2011 at 60 Years. Laparoscopic cholecystectomy (46475512) on 06/16/2010 at 59 Years. Colonoscopy (468372368) on 01/16/2010 at 59 Years. section (). Rotator cuff repair (099051692). Tubal ligation (320907027). Cataracts (4584745319). Foot (22112775).. Past Medical History Resolved Reflux of urine (5155878864): Resolved.. Family History Rheumatoid arthritis Mother Primary malignant neoplasm of lung Mother Diabetes mellitus type 2 Father Primary malignant neoplasm of female breast Sister . Procedure History Colonoscopy (047025686) on 09/07/2019 at 69 Years. EGD - Esophagogastroduodenoscopy (0380514197) on 09/07/2019 at 69 Years. EGD - Esophagogastroduodenoscopy (5053316299) on 01/16/2015 at 64 Years. Colonoscopy (335949374) on 01/16/2015 at 64 Years. Comments: 08/31/2019 16:19 EDT - Tonie Barragan LPN normal EGD - Esophagogastroduodenoscopy (6509110074) on 08/17/2011 at 61 Years. EGD - Esophagogastroduodenoscopy (2721227106) on 05/17/2011 at 60 Years. Laparoscopic cholecystectomy (38042009) on 06/16/2010 at 59 Years. Colonoscopy (466928417) on 01/16/2010 at 59 Years. section (). Rotator cuff repair (647402448). Tubal ligation (831907032). Cataracts (8208009465). Foot (27855578).. Colorectal neoplasm risk assessment Average risk. Informed [...] infection., # 30 cap(s), Refills(s) 3, [facility], cm, 02/20/23 8:48:00 EST, Height/Length Dosing, 68.5, kg,... Pantoprazole [address] Tab: 40 mg = 1 tab(s), Oral, Daily, # 90 tab(s), Refills(s) 1, Pharmacy: [facility] [facility], 154.9, cm, 12/11/19 9:26:00 EDT, Height/Length Dosing, 70.2, kg, 12/11/19 9:26:00 EDT, Weight Dosing estradiol 0.1 mg/g Vag Crm: See Instructions, 42.5 gm, Refill(s) 0, apply pea sized amount to urethra 2x/wk, [facility], 158, cm, 02/20/23 8:48:00 EST, [...] of stomach acid fluticasone 0.05 mg/inh Nasal [place]: 2 spray(s), Nasal, Daily, Refill(s) 0 levothyroxine [...] the procedure well. Findings (more content not included)...[facility] HospitalComment on above:Result Comment: Electronically Signed By: Tho VILLEGAS, Del Duckworth\.br\Date and Time Signed: 05/22/2407:51 EST errorOther Comment: Missing Attachment - attachment storage system not supported 1502557 Can be viewed in source systemMissing Attachment - attachment storage system not supported 7217208 Can be viewed insmccurtain [facility] – idabel systemMissing Attachment - attachment storage system not supported 2124424 Can be viewed in source systemMissing Attachment - attachment storage system not supported 7579115 Can be viewed in source systemMissing Attachment - attachment storage system not supported 6762770 Can be viewed in source systemMissing Attachment - attachment storage system not supported 1867231 Can be viewed in source systemMissing Attachment - attachment storage system not supported 7843225 Can be viewed in source systemMissing Attachment - attachment storage system not supported 6628512 Can be viewed in source systemDischarge Instructionson 05-22-2023 Discharge Instructions MUNIRA CHESTER :1950 Visit Date:05/22/2023 [...] Tab) fluticasone nasal (fluticasone 0.05 mg/inh Nasal [place]) fluticasone/umeclidinium/vilanterol (Trelegy Ellipta) iron polysaccharide (Ferrex-150) levothyroxine (levothyroxine 88 mcg (0.088 mg) Tab) montelukast nitrofurantoin (Macrobid 100 mg Cap) pantoprazole (Pantoprazole [address] Tab) Procedure History Colonoscopy (05/22/2023), Esophagogastroduodenoscopy (05/22/2023), Colonoscopy (09/07/2019), EGD - Esophagogastroduodenoscopy (09/07/2019), Colonoscopy [...] Asuncion Buchanan MD [facility]Comment on above:Result Comment: Electronically Signed By: Byron KILLIAN, Leighann\.br\Date and Time Signed: 05/22/23 09:29 ESTDischarge Instructions MUNIRA CHESTER :1950 Visit Date:05/22/2023 Inpatient [...] Tab) fluticasone nasal (fluticasone 0.05 mg/inh Nasal [place]) fluticasone/umeclidinium/vilanterol (Trelegy Ellipta) iron polysaccharide (Ferrex-150) levothyroxine (levothyroxine 88 mcg (0.088 mg) Tab) montelukast nitrofurantoin (Macrobid 100 mg Cap) pantoprazole (Pantoprazole [address] Tab) Procedure History Colonoscopy (05/22/2023), Esophagogastroduodenoscopy (05/22/2023), Colonoscopy (09/07/2019), EGD - Esophagogastroduodenoscopy (09/07/2019), Colonoscopy [...] VILLEGAS, Asuncion [place] [facility] CenterComment on above:Result Comment: Electronically Signed By: Nat Rodriguez.br\Date and Time Signed: 05/22/23 08:59 ESTEGDon 05-22-2023 EsophagogastroduodenoscopyPatient: MUNIRA CHESTER Age: 72 years Sex: Female : 1950 Associated Diagnoses: None Author: Del Nettles MD Pre-Procedure Procedure Date 05/22/2023 08:23:00 . Procedure Type: Esophagogastroduodenoscopy with biopsy. Pre-procedure diagnosis: Diagnostic: Anemia of [...] # 30 cap(s), Refills(s) 3, Pharmacy: [facility], cm, 02/20/23 8:48:00 EST, Height/Length Dosing, 68.5, kg,... Pantoprazole [address] Tab: 40 mg = 1 tab(s), Oral, Daily, # 90 tab(s), Refills(s) 1, Pharmacy: [facility] [facility], 154.9, cm, 12/11/19 9:26:00 EDT, Height/Length Dosing, 70.2, kg, 12/11/19 9:26:00 EDT, Weight Dosing estradiol 0.1 mg/g Vag Crm: See Instructions, 42.5 gm, Refill(s) 0, apply pea sized amount to urethra 2x/wk, [facility], 158, cm, 02/20/23 8:48:00 EST, [...] of stomach acid fluticasone 0.05 mg/inh Nasal [place]: 2 spray(s), Nasal, Daily, Refill(s) 0 levothyroxine [...] obtained from the duodenum Images Procedure images: Rec1_hd_video____29_414.jpg Rec1_hd_video__08__44_784.jpg Rec1_hd_video____53_345.jpg Rec1_hd_video__08__03_390.jpg Rec1_hd_video__T08__23_607.jpg Rec1_hd_video_2023__T08__30_290.jpg Rec1_hd_video__T__16_512.jpg Rec1_hd_video__T08__56_296.jpg Rec1_hd_video_T08_28_57_453.jpg Rec1_hd_video_2023__T08_29_31_556.jpg Rec1_hd_video_2023__T08_29_57_490.jpg . Post-Procedure Complications: none. Estimated blood loss: none. Specimens: sent to pathology. Devices/ implants: none left in place. Impression and Plan EGD: Diagnosis: Bile reflux gastritis (CPB15-[place] K29.60, Working, Medical). Course: Progressing as expected. Education and Follow-up: Counseled: Family. Notes: Continue current medication Follow-up pathology report.[facility] HospitalComment on above: Other Comment: Missing Attachment - attachment storage system not supported [id number] Can be viewed in source systemMissing Attachment - attachment storage system not supported [id number] Can be viewed [facility] systemMissing Attachment - attachment storage system not supported [id number] Can be viewed in source systemMissing Attachment - attachment storage system not supported [id number] Can be viewed in source systemMissing Attachment - attachment storage system not supported [id number] Can be viewed in source systemMissing Attachment - attachment storage system not supported [id number] Can be viewed in source systemMissing Attachment - attachment storage system not supported [id number] Can be viewed in source systemMissing Attachment - attachment storage system not supported [id number] Can be viewed in source systemMissing Attachment - attachment storage system not supported [id number] Can be viewed in sourcesystemMissing Attachment - attachment storage system not supported [id number] Can be viewed in source s ystemMissing Attachment - attachment storage system not supported [id number] Can be viewed in source systemMain OR PACU I Recordon 19-36-1793Rvyd OR PACU I Record PACU Phase I Document Type FT Summary Primary Physician: Del Nettles MD Finalized Date/Time: 05/22/23 09:41:42 Pt. Name: MUNIRA CHESTER D.O.B./Sex: 1950 Female Med Rec #: [id number] Physician: Del Nettles MD Financial #: [id number] Pt. Type: O Room/Bed: / Admit/Disch: 05/22/23 [...] individualized perioperative plan of care The patient's rightto privacy is maintained The patient's value system, [...] with or improved from baseline levels established preoperativelyThe patient's cardiovascular status is consistent with or improved from baseline levels established preoperatively The patient's cardiovascular status is consistent with or improved from baseline levels established preoperatively The patient demonstrates and/or reports adequate pain control throughout the perioperative period The patient received appropriate medication(s), safely administered during the perioperativeperiod Acuity Level PACU I FT Entry 1 Start Time 05/22/23 08:50:00 Stop Time 05/22/23 09:20:00 Acuity Level Acuity Level I Last Modified By: Nat Rodriguez I 05/22/23 09:41:38 Finalized By: Nat Rodriguez I Document Signatures Signed By: Nat Rodriguez I 05/22/23 09:41E[facility]yTriHealth [facility]hes[facility] HospitalMain OR Preoperative Recordon 07-71-1797Cery OR Preoperative RecordHolding Area Document Type FT Summary Primary Physician: Del Nettles MD Finalized Date/Time: 05/22/23 07:08:55 Pt. Name: MUNIRA CHESTER/Sex: 1950 Female Med Rec #: [id number] Physician: Del Nettles MD Financial #: [id number] Pt. Type: O Room/Bed: / Admit/Disch: 05/22/23 [...] or her perioperative plan of care The patient'sright to privacy is maintained Surgery Checklist FT [...] Signatures Signed By: Neli Butler RN 05/22/23 07:08[facility] CenterMonitor Recordon 94-27-1487Iulmiet Record [id number]#1.00TIFFJohnson [facility]itus Medical CenterMonitor [id number]#1.00TIFFNorohan Garay [facility] Medical CenterPatient Education - Texton 03-00-9922Lrqhqxf Education - TextColonoscopy Care After Surgery Please read the instructions outlined below and refer to this sheet in the next few weeks. These discharge instructions provide you with general information on [facility] Your doctor may also give you [...] unsweetened, w/added ascorbic acid 1 cup 0.5 [place] 1 cup 0.7 Vegetables Cooked Green beans 1 cup 4.0 Carrots 1/2 cup sliced 2.3 Peas 1 cup 8.8 Potato (baked, with skin) 1 medium potato 3.8 Raw [place] (with peel) 1 cucumber 1.5 Lettuce 1 [...] 8.7 Peanuts 1/2 [address] [facility] HospitalDa 2013. SEEK IMMEDIATE MEDIC (more content not included)...[facility] Memorial HospitalConsent for Procedure/Surgeryon 31-84-6253Xoruxzk for Procedure/Surgery [id number]#1.00TIFFNormUniversity Hospitals Health SystemAmbulatory Visit Summaryon 45-89-5370Giyyinonqi Visit Summary MUNIRA CHESTER :1950 Visit Date:05/14/2023 [...] Tab) fluticasone nasal (fluticasone 0.05 mg/inh Nasal [place]) fluticasone/umeclidinium/vilanterol (Trelegy Ellipta 200 mcg-62.5 mcg-25 mcg/inh inhalation powder) fluticasone/umeclidinium/vilanterol (Trelegy Ellipta) levothyroxine (levothyroxine 88 mcg (0.088 mg) Tab) nitrofurantoin (Macrobid 100 mg Cap) pantoprazole (Pantoprazole [address] Tab) Procedures Performed Colonoscopy (09/07/2019), EGD - Esophagogastroduodenoscopy (09/07/2019), Colonoscopy (01/16/2015), EGD - Esophagogastroduodenoscopy (01/16/2015), EGD - Esophagogastroduodenoscopy (08/17/2011), EGD - Esophagogastroduodenoscopy (05/17/2011), Laparoscopic cholecystectomy (06/16/2010), Colonoscopy (03/2009), Cataracts, section, Foot, Rotator cuff repair, Tubal ligation. Discharge Vitals Heart Rate (Peripheral) 89 Respiratory Rate 16 Blood Pressure 135/89 Height 158 cm Height 62 in Weight 70.8 kg Weight 155.76 lb BMI 28.36 What to do next Scheduled Follow-Up Appointments Saturday 8:00 AM EST With: Asuncion Buchanan MD [facility]Cl[facility]on 05-14-2023 Gastroenterology Office/Clinic NoteChief Complaint ref by [place] HPI Staff [...] urine Procedure/Surgical History Colonoscopy (09/07/2019), EGD - Esophagogastroduodenoscopy (09/07/2019), Colonoscopy (01/16/2015), EGD - Esophagogastroduodenoscopy (01/16/2015), EGD - Esophagogastroduodenoscopy (08/17/2011), EGD - Esophagogastroduodenoscopy (05/17/2011), Laparoscopic cholecystectomy (06/16/2010), Colonoscopy (03/2009), Cataracts, section, Foot, Rotator cuff repair, Tubal ligation. Medications amLODIPine 5 mg Tab atorvastatin 10 mg Tab, 10 mg= 1 tab(s), Oral, Daily EpiPen 2-Giovani, 0.3 mg, IntraMuscular, Once estradiol 0.1 mg/g Vag Crm, See Instructions famotidine 20 mg Tab, Oral, BID fluticasone 0.05 mg/inh Nasal [place], 2 spray(s), Nasal, Daily Fosamax 70 mg [...] virus vaccine, inactivated 12/31/2022 Recorded SARS-CoV-2 (COVID-19) mRNAMUL.ORD![id number] 12/22/2021 Recorded influenza virus vaccine, inactivated 12/18/2021 Recorded SARS-CoV-2 (COVID-19) mRNA-1273 vaccine 07/04/2021 Recorded SARS-CoV-2 (COVID-19) mRNA-1273 vaccine 01/23/2021 Recorded influenza virus vaccine, inactivated 11/23/2020 Recorded SARS-CoV-2 (COVID-19) mRNA-1273 vaccine 06/02/2020 Recorded SARS-CoV-2 (COVID-19) mRNA-1273 vaccine 05/05/2020 Recorded SARS-CoV-2 (COVID-19) mRNA-1273 vaccine 2020 Recorded 3 shots to date infl (more content not included)...Clinton [facility] HospitalComment on above:Result Comment: Electronically Signed By: Tho VILLEGAS, Del Duckworth\.br\Date and Time Signed: 05/14/2412:06 ESTGastroenterology Office/Clinic NoteChief Complaint ref by [place] HPI Staff [...] urine Procedure/Surgical History Colonoscopy (09/07/2019), EGD - Esophagogastroduodenoscopy (09/07/2019), Colonoscopy (01/16/2015), EGD - Esophagogastroduodenoscopy (01/16/2015), EGD - Esophagogastroduodenoscopy (08/17/2011), EGD - Esophagogastroduodenoscopy (05/17/2011), Laparoscopic cholecystectomy (06/16/2010), Colonoscopy (03/2009), Cataracts, section, Foot, Rotator cuff repair, Tubal ligation. Medications amLODIPine 5 mg Tab atorvastatin 10 mg Tab, 10 mg= 1 tab(s), Oral, Daily EpiPen 2-Giovani, 0.3 mg, IntraMuscular, Once estradiol 0.1 mg/g Vag Crm, See Instructions famotidine 20 mg Tab, Oral, BID fluticasone 0.05 mg/inh Nasal [place], 2 spray(s), Nasal, Daily Fosamax 70 mg [...] Substance Abuse - Denies (more content not included)...[facility] HospitalComment on above:Result Comment: Electronically Signed By: Tho VILLEGAS, Del Duckworth\.br\Date and Time Signed: 05/14/2412:07 ESTPhysician Referralon 50-46-0032Khbbsfyvk [id number]#1.00TIFF [facility] HospitalAmbulatory Visit Summaryon 60-89-8759Wyggbclpgu Visit Summary MUNIRA CHESTER :1950 Visit Date:02/20/2023 Ambulatory Visit Instructions Your Diagnosis Mixed incontinence Recurrent UTI Urethral caruncle Tests Performed Urnls Dip Stick Auto w/o Microscopy POC 53914 Your Care Team Attending Physician - Asuncion Buchanan MD Primary Care Physician - ANDREA GOLDEN [...] Tab) fluticasone nasal (fluticasone 0.05 mg/inh Nasal [place]) fluticasone/umeclidinium/vilanterol (Trelegy Ellipta 200 mcg-62.5 mcg-25 mcg/inh inhalation powder) levothyroxine (levothyroxine 88 mcg (0.088 mg) Tab) pantoprazole (Pantoprazole [address] Tab) Procedures Performed Colonoscopy (09/07/2019), EGD - Esophagogastroduodenoscopy (09/07/2019), Colonoscopy (01/16/2015), EGD - Esophagogastroduodenoscopy (01/16/2015), EGD - Esophagogastroduodenoscopy (08/17/2011), EGD - Esophagogastroduodenoscopy (05/17/2011), Laparoscopic cholecystectomy (06/16/2010), Colonoscopy (03/2009), Cataracts, section, Foot, Rotator cuff repair, Tubal ligation. Discharge Vitals Height 158 cm Height 62 in Weight 68.5 kg Weight 150.7 lb BMI 27.44 What to do next Scheduled Follow-Up Appointments Saturday 8:00 AM EST With: Asuncion Buchanan MD [facility] 73-12-2071Oxjqllu EducationObstetrics and Gynecology Pelvic Floor Dysfunction, Female Pelvic [...] how tight your pelvic floor muscles are sothat you can learn to control them. ? Internal or external massage therapy. ? A treatment that involves electrical stimulation of the pelvic floor muscles to help control pain(transcutaneous electrical nerve stimulation, or TENS). ? Sound [...] pelvic muscle tension or spasms. ? Take uqsb-lpu-recavgq and prescription medicines only as told by [...] a bowel movement i (more content not included)...NormalCleveland Clinic Akron GeneralUrology Office/Clinic Noteon 42-13-8276Nzydgiu Office/Clinic NoteChief Complaint 1yr HPI Staff 1yr DX: UTI, [...] it. Advised pt medications would be improve urgency/frequencyif she would like to have tx at this time. States she is worried about SEs. Educated pt on various medication options and their SEs. Does not wish to proceed with tx at this time. Reports hx of mesh for uterus but had complications. Advised pt if she elects to proceed with slingprocedure, we would place external referral. -Practice Kegels, [...] SEs. Feels it has been working well. Shewould like to continue -Continue Estrace cream as above, refill medication sent today Follow-up With When Contact Information Dewayne VILLEGAS, Asuncion [place], URL, [facility] [address], [place] [address]- [phone] Additional Instructions: 1 yr Patient Education Pelvic [...] headache Duodenal stricture Epigast (more content not included)...[facility] HospitalComment on above:Result Comment: Electronically Signed By: Asuncion Buchanan MD\.br\Date and Time Signed: 02/20/23 18:21EST\.br\Electronically Co-Signed By: Kimmie Lemus\.br\Date and Time Co-Signed: 02/20/23 09:53 ESTPOINT OF CARE GLUCOSEon 65-31-8423Omhkngc [Mass/Vol]94 mg/yMWrccdo83-826Bol [facility] ClinicComment on above:Performed By: #### POCGLUC ####[facility] [address] [address]Dr. Dwight MarioGlucose [Mass/Vol]106 mg/aUKnlsjo01-115 The [facility]opathic ClinicComment on above:Performed By: #### POCGLUC ####[facility] [address] [address]Dr. Dwight Mario Covid-19 PCR ([facility])on 40-24-6644UKSX-CoV-2 (COVID-19) RNA GIOVANI+probe Ql (Unsp spec)Not detectedNormalNOT DETECTEDThe [facility] ClinicComment on above:Result Comment: This test is not yet approved or cleared by the [place] FDA. When there are no FDA-approved or cleared tests available, and other criteria are met, FDA can make tests available under an emergency access mechanism called an Emergency Use Authorization (EUA). The EUA for this test is supported by the [employer]her [employer]er of Health and Human Service's (HHS's) declaration [...] of clinical signs and symptoms consistent with SARS-CoV-2.Performed By: #### CVDTBH #### [facility] [address] [place] [address] Dr. Dwight MarioPROF CHEM 8 (BAS METB)on 54-93-2534Dkidv gap [Moles/Vol]13.4 mmol/LNormalThe [facility] ClinicComment on above:Performed By: #### BMP #### [facility] [address] [place] [address] Dr. Dwight MarioCalcium [Mass/Vol]9.1 mg/dLNormal8.5-10.1The [facility] Comment on above:Performed By: #### BMP #### [facility] [address] [place] [address] Dr. Dwight MarioChloride [Moles/Vol]107 mmol/WXoqpnw27-705PvzPromedica Toledo Hospital Comment on above:Performed By: #### BMP #### [facility] [address] [place] [address] Dr. Dwight MarioCO2 [Moles/Vol]26.5 mmol/ZHjjfoz84.0-32.0[facility] Comment on above:Performed By: #### BMP #### [facility] [address] [place] [address] Dr. Dwight MarioCreatinine [Mass/Vol]0.76 mg/dLNormal0.55-1.02The [facility] ClinicComment on above:Performed By: #### BMP #### [facility] [address] [place] [address] Dr. Dwight PhillipGFR-AF MACEDONIAN>60Normal>=60The [facility] ClinicComment on above:Performed By: #### BMP #### [facility] [address] [place] [address] Dr. Dwight PhillipGFR-NON AF MACEDONIAN>60Normal>=60The [facility] HospitalComment on above:Performed By: #### BMP #### [facility] [address] [address] [address] Dwight MarioGlucose [Mass/Vol]108 mg/dLCritically vnno82-164Xdy [facility] ClinicComasc[facility] on above:Performed By: #### BMP #### [facility] [address] [address] [address] Dwight MarioPotassium [Moles/Vol]3.9 mmol/LNormal3.5-5.1[facility] Comment on above:Performed By: #### BMP #### [facility] [address] [address] [address] Dwight MarioSodium [Moles/Vol]143 mmol/TIakfew920-042Adi [facility] Comment on above:Performed By: #### BMP #### [facility] [address] [address] [address] Dwight MarioUrea nitrogen [Mass/Vol]25.0 mg/dLCritically high7.0-18.0Prom[facility] Toledo HospitalComment on above:Performed By: #### BMP #### [facility] [address] [address] [address] Dwight Burciaga nitrogen/Creatinine [Mass ratio]32.9 mg/mgNormalThe [facility] ClinicComment on above:Performed By: #### BMP #### [facility] [address] [address] [address] Dwight Lewis AUTO DIFFon 72-88-2405CEAC #0.0 103/ulNormal0.0-0.1[facility] HospitalComasc[facility] on above:Performed By: #### CBC #### [facility] [address] [address] [address] Dwight MarioBajeanphils/100 WBC (Bld)0.4 %Normal0.2-2.0[facility] Comment on above:Performed By: #### CBC #### [facility] [address] [place] [address] Dr. Quintanilla ChangEO #0.3 103/ulNormal0.0-0.7The [facility] ClinicComment on above: Performed By: #### CBC #### [facility] [address] [place] [address] Dr. Dwight Philliposinophils/100 WBC (Bld)2.8 %Normal0.9-7.0The [facility] Comment on above:Performed By: #### CBC #### [facility] [address] [place] [address] Dr. Dwight Philliprythrocyte distribution width (RBC) [Ratio]14.0 %Ygnzyg51.0-15.0 The [facility] ClinicComment on above:Performed By: #### CBC #### [facility] [address] [place] [address] Dr. Dwight MarioHematocrit (Bld) [Volume fraction]38.3 %Sulxke37.0-48.0The [facility] ClinicComment on above:Performed By: #### CBC #### [facility] [address] [place] [address] Dr. Dwight MarioHemoglobin (Bld) [Mass/Vol]12.6 g/xLIxbceq26.0-16.0The [facility] ClinicComment on above:Performed By: #### CBC #### [facility] [address] [place] [address] Dr. Dwight Triplett #0.03 10e3/ulNormal0.00-0.03The [facility] ClinicComment on above:Performed By: #### CBC #### [facility] [address] [place] [address] Dr. Dwight Triplett %0.3 %Normal0.0-0.5The [facility] ClinicComment on above: Performed By: #### CBC #### [facility] [address] [place] [address] Dr. Dwight PuriH #2.9 103/ulNormal1.2-3.8The [facility] ClinicComment on above:Performed By: #### CBC #### [facility] [address] [place] [address] Dr. Yilan ChangLymphocytes/100 WBC (Bld)29.0 %Cwghzg79.5-60.0The [facility] ClinicComment on above:Performed By: #### CBC #### [facility] [address] [place] [address] Dr. Dwight Bowie DIFF REQNONormalThe [facility] ClinicComment on above: Performed By: #### CBC #### [facility] [address] [place] [address] Dr. Dwight Henry (RBC) [Entitic mass]30.3 npUwngvf50.7-34.0The [facility] HospitalComment on above:Performed By: #### CBC #### [facility] [address] [place] [address] Dr. Dwight Henry (RBC) [Mass/Vol]32.9 g/bOIhcvfu16.9-35.2The [facility] ClinicComment on above:Performed By: #### CBC #### [facility] [address] [place] [address] Dr. Dwight Felix (RBC) [Entitic vol]92.1 mCWvranc62.0-99.0The [facility] ClinicComment on above:Performed By: #### CBC #### [facility] [address] [place] [address] Dr. Dwight Otero #0.8 103/ulNormal0.3-0.8The [facility] ClinicComment on above:Performed By: #### CBC #### [facility] [address] [place] [address] Dr. Dwight Butlerocytes/100 WBC (Bld)7.9 %Normal1.7-12.0The [facility] Comment on above:Performed By: #### CBC #### [facility] [address] [place] [address] Dr. Dwight Andres #5.9 103/ulNormal1.4-6.5The [facility] ClinicComment on above:Performed By: #### CBC #### [facility] [address] [place] [address] Dr. Dwight Floresutrophils/100 WBC (Bld)59.6 %Trsigu33.0-75.0The [facility]opathic ClinicComment on above:Performed By: #### CBC #### [facility] [address] [address] [address] Dwight MarioPlatelet mean volume (Bld) [Entitic vol]9.4 fLCritically low 9.5-13.5The [facility] ClinicComment on above:Performed By: #### CBC #### [facility] [address] [address] [address] Dwight MarioPLT385 103/iwFxdmoh380-115Qvc [facility] ClinicCom[facility] on above: Performed By: #### CBC #### [facility] [address] [address] [address] Dwight MarioRBC4.16 106/ulCritically low4.20-5.40The [facility] on above:Performed By: #### CBC #### [facility] [address] [address] [address] Dwight MarioWBC10.0 103/ulNormal4.0-11.0The [facility] ClinicComasc[facility] on above:Performed By: #### CBC #### [facility] [address] [address] [address] Dwight MarioLIPID PROFILEon 15-20-5846XNQS-HDL RATIO NORMSMercy Health St. Charles HospitalComascension st. [facility] on above:Result Comment: 3.3 - 4.4 LOW RISK 4.4 - 7.1 AVERAGE RISK 7.1 - 11.0 MODERATE RISK >11.0 HIGH RISKPerformed By: #### LIPID, BMP, ALT, TSH ####[facility] [address] [address]Dr. Dwight MarioCholesterol [Mass/Vol]184 mg/dLNormal<=200The [facility] on above:Performed By: #### LIPID, BMP, ALT, TSH ####[facility] [address] [address]Dr. Dwight Mario Cholesterol in HDL [Mass/Vol]61 mg/dLCritically slvb44-18XukPromedica Toledo Hospital Comment on above:Performed By: #### LIPID, BMP, ALT, TSH ####[facility] [address] [address]Dr. Yilan ChangCholesterol in LDL [Mass/Vol]96.0 mg/dLNoKindred Hospital DaytonComment on above:Performed By: #### LIPID, BMP, ALT, TSH ####[facility] [address] [address]Dr. Yilan ChangCholesterol.total/Cholesterol in HDL [Mass ratio]3.0 {ratio}NormalPromedica Toledo HospitalComment on above:Performed By: #### LIPID, BMP, ALT, TSH ####[facility] [address] [place], [place] [address]Dr. Yilan ChangHDL NORMAL> or = 60 mg/dl - LOW CARDIOVASCULAR RISK <40 mg/dl - HIGH CARDIOVASCULAR RISKNoKindred Hospital DaytonComment on above:Performed By: #### LIPID, BMP, ALT, TSH ####[facility] [address] [address]Dr. Yilan ChangLDL CALC NORMALSEE BELOWNoKindred Hospital DaytonComment on above:Result Comment: <100 mg/dl OPTIMAL 100 - 129 mg/dl NEAR OR ABOVE OPTIMAL 130 - 159 mg/dl BORDERLINE HIGH 160 - 189 mg/dl HIGH >190 mg/dl VERY HIGHPerformed By: #### LIPID, BMP, ALT, TSH ####[facility] [address] [address]Dr. Yilan ChangTriglyceride [Mass/Vol]135 mg/dLNormal <=150Promedica Toledo HospitalComment on above:Performed By: #### LIPID, BMP, ALT, TSH ####[facility] [address] [place], [place] [address]Dr. Yilan ChangVLDL CALC27.0 mg/dLNoKindred Hospital DaytonComment on above: Performed By: #### LIPID, BMP, ALT, TSH ####[facility] [address] [place], [place] [address]Dr. Yilan ChangMG MAMM SCREEN 3D ALLEGRA CADon 23-14-1392DM MAMM SCREEN 3D ALLEGRA CADPatient: MUNIRA CHESTER Exam Date: 01/29/2022 : 1950 Gender:F Ordering : DR ANDREA GOLDEN D.O. Admission #: [id number] Family : DR. MADISON BURNS D.O. Order #: [id number] CLICK HERE TO VIEW EXAM RADIOLOGY REPORT [...] breast cancer at age 61. LOCATION: [facility] BREAST COMPOSITION: Scattered areas fibroglandular density. FINDINGS: [...] by: Campos Erazo MD on 01/29/2022 at 15:25[facility] PROF CHEM 8 (BAS METB)on 63-36-9182Ksavz gap [Moles/Vol]9.7 mmol/LNormalThe [facility] ClinicComment on above:Performed By: #### LIPID, BMP, ALT, TSH ####[facility] [address] [place], [place] [address]QmJose MarioCalcium [Mass/Vol]8.9 mg/dLNormal8.5-10.1The [facility]opathic ClinicComment on above:Performed By: #### LIPID, BMP, ALT, TSH ####[facility] [address] [address]Dr. Yilan ChangChloride [Moles/Vol]105 mmol/VRbqoer76-867Frp [facility] ClinicComment on above:Performed By: #### LIPID, BMP, ALT, TSH ####[facility] [address] [place] [address]Dr. Yilan ChangCO2 [Moles/Vol]27.3 mmol/LNormal 21.0-32.0The [facility] ClinicComment on above:Performed By: #### LIPID, BMP, ALT, TSH ####[facility] Bu[address]wc[address] [place], [place] [address]Dr. Yilan ChangCreatinine [Mass/Vol]0.80 mg/dLNormal0.55-1.02The [facility] ClinicComment on above:Performed By: #### LIPID, BMP, ALT, TSH ####[facility] Izh[address]ff[address] [place], [place] [address]Dr. Yilan ChangEGFR- AF MACEDONIAN>60Normal>=60The [facility] on above:Performed By: #### LIPID, BMP, ALT, TSH ####[facility] Qtrinmrleb[address] [place], [place] [address]Dr. Yilan ChangEGFR-NON AF MACEDONIAN>60Normal>=60The [facility]ment on above:Performed By: #### LIPID, BMP, ALT, TSH ####[facility] L[address]zfh[address] [place] [address]Dr. Yilan ChangGlucose [Mass/Vol]107 mg/dLCritically hloy26-216Xrp [facility] Comment on above:Performed By: #### LIPID, BMP, ALT, TSH ####[facility] Dwylx[address] [place], [place] [address]Dr. Yilan ChangPotassium [Moles/Vol]4.0 mmol/LNormal3.5-5.1The [facility] Hospitalment on above: Performed By: #### LIPID, BMP, ALT, TSH ####[facility] [address]qmiq[address] [place] [address]Dr. Dwight ChangSodium [Moles/Vol]138 mmol/L Iibpsd964-753Rgg [facility] ClinicComment on above:Performed By: #### LIPID, BMP, ALT, TSH ####[facility] [address]clxjy[address] [place] [address]Dr. Yilan ChangUrea nitrogen [Mass/Vol]20.0 mg/dLCritically high 7.0-18.0The [facility] ClinicComment on above:Performed By: #### LIPID, BMP, ALT, TSH ####[facility] Dhwdgjmnjk[address] [place] [address]Dr. Yilan ChangUrea nitrogen/Creatinine [Mass ratio]25.0 mg/mgNormalThe [facility] ClinicComment on above:Performed By: #### LIPID, BMP, ALT, TSH ####[facility] Jsslvrdpbn[address] [place] [address]Dr. Dwight MarioM[facility] 88-99-7693NHS [Catalytic activity/Vol]26 U/AGfdfxf36-24Htk [facility] ClinicComment on above:Performed By: #### LIPID, BMP, ALT, TSH ####[facility] V[address]upunkw[address] [place] [address]Dr. Dwight PierceHon 20-78-9344KZK2.901 uIU/mLCritically high0.358-3.740The [facility] ClinicComment on above:Performed By: #### LIPID, BMP, ALT, TSH ####[facility] Uaepthqstx[address] [place] [address]Dr. Dwight ChangXR shoulder LT min 2V*on 93-10-4615AE shoulder LT min 2V*[facility] [address] XRay Report Signed Patient: Munira Chester MR#: [id number] : 1950 Acct:[id number] Age/Sex: 71 / F ADM Date: 10/10/21 Loc: [facility] [place]: Type: [facility] Attending Dr: Espinoza Ruiz MD Copies to: [...] Abelino Prado M.D.10/10/2021 1:25 PM Dictation Location: [place] [address] Transcribed By: [facility] 10/10/21 1325 Dictated By: Abelino Prado II, MD 10/10/21 1324 Signed By: 10/10/21 1325[facility] HospitalMRI SH[facility] WO CONon 92-87-1960VVU SHOULDER LT WO CONEXAM: MRI SHOULDER LT WO CON REASON FOR [...] Electronically authenticated by: YOVANA COTTRELL Date: 2021-10-03 15:02[facility] Vital Signs Date TimeVital SignValuePerforming JbbpwbbsmIwghhexp45-15-3331 09:14-0400Body mass index (BMI) [Ratio]31.28 kg/m2Tomarco Vasquez MD Work Phone: noWashington [facility] HospitalGpurlvrfof57-83-5070 09:140400Body oqfsgg87.56 kgCharito Vasquez MD Work Phone: noWashington [facility] HospitalKkntftskco34-19-4215 09:52-0400Body gypeqe779.94 cmBenjamin Ball DO Work Phone: [facility]10-07-2025 09:52-0400 Body mass index (BMI) [Ratio]32.1 kg/e2Rueinace Ball DO Work Phone: [facility]10-07-2025 09:52-0400 Body zmajot31.11 kgBenjamin Ball DO Work Phone: [facility]10-07-2025 09:52-0400 Diastolic blood grpgawqx58 mm[Hg]Andrea Ball DO Work Phone: [facility]10-07-2025 09:52-0400 Heart rate97 /minBenjamin Ball DO Work Phone: [facility]10-07-2025 09:52-0400 Respiratory rate12 /minBenjamin Ball DO Work Phone: [facility]10-07-2025 09:52-0400 Systolic blood dumhqgfw886 mm[Hg]Andrea Ball DO Work Phone: [facility]05-21-2025 14:20-0400 Blood Pressure LocationMohamad Mouchli [phone]-UsrxcSelect [facility]05-21-2025 14:20-0400Diastolic blood mm[Hg]Lucieamad Mouchli [phone]-JztleSelect [facility]ty [facility]05-21-2025 14:20-0400Heart rate82 /minMohamad Mouchli [phone]-ZobfsSelect [facility]ty [facility]05-21-2025 14:20-0400Respiratory rate14 /minMohamad Mouchli [phone]-LjjwfSelect [facility]ty [facility]05-21-2025 14:20-0400Systolic blood bcpbwyur437 mm[Hg]Mohamad Mouchli [phone]-UdfsuSelect Medical Specialty Hospital [facility]04-28-2025 15:50-0400Diastolic blood hsgleype72 mm[Hg]Kasey Fallon MD Work Phone: [facility]04-28-2025 15:50-0400Heart rate68 /min Kasey Fallon MD Work Phone: [facility]04-28-2025 15:50-3702UiC7% (BldA) [Mass fraction]94 %Kasey Fallon MD Work Phone: [facility]04-28-2025 15:50-0400Systolic blood ejfsmack871 mm[Hg]Kasey Fallon MD Work Phone: [facility]04-28-2025 15:20-0400Body temperature 97.7 [degF]Kasey Fallon MD Work Phone: [facility]04-28-2025 15:20-0400Respiratory rate 18 /minShirluba Fallon MD Work Phone: [facility]04-28-2025 12:52-0400Body vuvtil188 cm Kasey Fallon MD Work Phone: [facility]04-28-2025 12:52-0400Body mass index (BMI) [Ratio]29.23 kg/b8SqpiqhoKasey Fallon MD Work Phone: [facility]04-28-2025 12:52-0400Body zwssog64.84 kgKasey Fallon MD Work Phone: [facility]03-18-2025 10:08-0400Heart rate75 /min Asuncion Lue [facility]03-18-2025 10:08-7620JwA5% (BldA) [Mass fraction]97 %Asuncion Lue [facility]03-18-2025 10:08-0400 Diastolic blood rchbnciv42 mm[Hg]Asuncion Lue [facility]03-18-2025 10:08-0400Mean blood fwliaqyw48 mm[Hg]Asuncion Lue [facility]03-18-2025 10:08-0400 Systolic blood kmjintsk115 mm[Hg]Asuncion Lue [facility]03-18-2025 09:13-0400Heart rate73 /minKathy Lue [facility]03-18-2025 09:13-2304ApP8% (BldA) [Mass fraction]95 %Asuncion Lue [address] [place], [place] [address]03-18-2025 09:13-0400 Diastolic blood nwuoptds00 mm[Hg]Asuncion Lue [address] [place], [place] [address]03-18-2025 09:13-0400Mean blood fyvmbwtk84 mm[Hg]Asuncion Lue [address] [place], [place] 7373703-18-2025 09:13-0400 Systolic blood mm[Hg]Asuncion Lue [address] [place], [place] 7373703-18-2025 09:03-0400Blood Pressure LocationKathy Lue [address] [place], [place] 7373703-18-2025 09:03-0400Body ecscclrzbtl04.7 [degF]Asuncion Lue [address] [place], [place] 737[address]03-18-2025 09:03-0400 Diastolic blood ichoibud96 mm[Hg]Asuncion Lue [facility]03-18-2025 09:03-0400Heart rate64 /minKathy Lue [facility]03-18-2025 09:03-0400Mean blood gqytlsrb60 mm[Hg]Asuncion Lue [address] [place], [place] 737[address]03-18-2025 09:03-0400 Respiratory rate16 /minKathy Lue [address] [place], [place] 7286303-18-2025 09:03-7269HpF5% (BldA) [Mass fraction]96 %Asuncion Lue [facility]03-18-2025 09:03-0400 Systolic blood idigspqn577 mm[Hg]Asuncion Lue [facility]03-18-2025 08:51-0400Blood Pressure LocationKathy Lue [address] [place], [place] 737[address]03-18-2025 08:51-0400Mean blood yourymko24 mm[Hg]Asuncion Lue [address] [place], [place] 737[address]03-18-2025 08:51-0400 Respiratory rate10 /minKathy Lue [address] [place], [place] 7373703-18-2025 08:46-0400Blood Pressure LocationKathy Lue [address] [place], [place] 7373703-18-2025 08:46-0400Mean blood manmzmly66 mm[Hg]Asuncion Lue [address] [place], [place] [address]03-18-2025 08:46-0400 Respiratory rate9 /minKathy Lue [address] [place], [place] 737[address]03-18-2025 08:36-0400Body qobihircsxp08.52 [degF]Asuncion Lue [address] [place], [place] 7286303-18-2025 08:30-0400 Respiratory rate17 /minKathy Lue [address] [place], [place] 7373703-18-2025 08:25-0400 Respiratory rate12 /minKathy Lue [facility]03-18-2025 08:20-0400 Respiratory rate20 /minKathy Lue [facility]03-18-2025 06:36-0400Mean blood hwlyipra91 mm[Hg]Asuncion Lue [facility]03-18-2025 06:36-0400Heart rate62 /minKathy Lue [address] [place], [place] 737[address]03-18-2025 06:35-0400Body jkpmytgnorp52.7 [degF]Asuncion Lue [facility]03-05-2025 07:38-0500Blood Pressure LocationKathy Lue [facility]03-05-2025 07:38-0500 Diastolic blood sgdyfskf59 mm[Hg]Asuncion Lue [facility]03-05-2025 07:38-0500Heart rate80 /minKathy Lue [facility]03-05-2025 07:38-0500Mean blood avrhorem31 mm[Hg]Asuncion Lue [facility]03-05-2025 07:38-0500 Systolic blood mm[Hg]Asuncion Lue [facility]03-05-2025 07:37-0500Heart rate78 /minKathy Lue [facility]03-05-2025 07:37-1495MbJ5% (BldA) [Mass fraction]98 %Asuncion Lue [facility]03-05-2025 07:37-0500 Respiratory rate18 /minKathy Lue [facility]03-05-2025 07:36-0500Blood Pressure LocationKathy Lue [facility]03-05-2025 07:36-0500 Diastolic blood mffdzjpa60 mm[Hg]Asuncion Lue [facility]03-05-2025 07:36-0500Mean blood iewjtlxd376 mm[Hg]Asuncion Lue [facility]03-05-2025 07:36-0500 Systolic blood ozqcyhbo805 mm[Hg]Asuncion Lue [facility]02-13-2025 09:01-0500Body zhexut018.5 cmTraisa Vasquez MD Work Phone: noWashington [facility] HospitalWjgwcalmbd34-28-8374 09:01-0500Body mass index (BMI) [Ratio]30 kg/m2Charito Vasquez MD Work Phone: [facility] CenterPbjwjhabqb79-22-3997 09:01-0500Body .39 kgCharito Vasquez MD Work Phone: [facility] CenterElcdhyaozn79-44-6713 10:50-0500Blood Pressure LocationKathy Lue [facility]02-05-2025 10:50-0500Diastolic blood mm[Hg]Asuncion Lue [facility]02-05-2025 10:50-0500Heart rate68 /minKathy Lue [facility]02-05-2025 10:50-0500Systolic blood ezbcaifi923 mm[Hg]Asuncion Lue [facility]01-30-2025 10:59-0500Body mass index (BMI) [Ratio]30 kg/e2Mydcjkgw Rinkes DO Work Phone: [facility] CenterNsyxiveekr63-22-6898 10:59-0500Body xfkaoe05.39 kgKathleen Rinkes DO Work Phone: [facility] CenterSolmkyvbfw39-77-9705 10:59-0500Diastolic blood smsizksn30 mm[Hg]Madison Rinkes DO Work Phone: [facility] CenterHxdvpdcazj99-00-6135 10:59-0500Systolic blood pvtvpccy331 mm[Hg]Madison Rinkes DO Work Phone: [facility] CenterUwscaqhynu91-75-7960 12:01-0500Heart rate77 /min Asuncion Lue [facility]01-21-2025 12:01-5858PmG9% (BldA) [Mass fraction]95 %Asuncion Lue [facility]01-21-2025 12:01-0500 Diastolic blood kewezods06 mm[Hg]Asuncion Lue [address] [place], [place] [address]01-21-2025 12:01-0500Mean blood qsolgphc120 mm[Hg]Asuncion Lue [facility]01-21-2025 12:01-0500 Systolic blood mm[Hg]Asuncion Lue [address] [place], [place] 7373701-21-2025 12:01-0500 Respiratory rate16 /minKathy Lue [address] [place], [place] [address]28[address]01-21-2025 11:07-0500Heart rate64 /minKathy Lue [facility]01-21-2025 11:07-2544AoE1% (BldA) [Mass fraction]97 %Asuncion Lue [facility]01-21-2025 11:05-0500 Respiratory rate16 /minKathy Lue [facility]01-21-2025 11:05-0500 Diastolic blood avbqckzg86 mm[Hg]Asuncion Lue [facility]01-21-2025 11:05-0500Mean blood ppbpcidm47 mm[Hg]Asuncion Lue [address] [place], [place] [address]01-21-2025 11:05-0500 Systolic blood lfwjeibb906 mm[Hg]Asuncion Lue [facility]01-21-2025 10:48-0500Body nmdoeixiqna30.7 [degF]Asuncion Lue [facility]01-21-2025 10:48-0500 Diastolic blood kdneromn16 mm[Hg]Asuncion Lue [facility]01-21-2025 10:48-0500Heart rate63 /minKathy Lue [facility]01-21-2025 10:48-0500Mean blood jcsbatgn131 mm[Hg]Asuncion Lue [address] [place], [place] 737[address]01-21-2025 10:48-0500 Respiratory rate21 /minKathy Lue [facility]01-21-2025 10:48-9037BmX4% (BldA) [Mass fraction]97 %Asuncion Lue [facility]01-21-2025 10:48-0500 Systolic blood mm[Hg]Asuncion Lue [facility]01-21-2025 10:35-0500Mean blood vovirzcq24 mm[Hg]Asuncion Lue [facility]01-21-2025 10:35-0500 Respiratory rate12 /minKathy Lue [facility]01-21-2025 10:30-0500Mean blood emdeqbdu51 mm[Hg]Asuncion Lue [facility]01-21-2025 10:30-0500 Respiratory rate10 /minKathy Lue [facility]01-21-2025 10:23-0500Blood Pressure LocationKathy Lue [facility]01-21-2025 10:23-0500Body igacfriiujc75.52 [degF]Asuncion Lue [address] [place], [place] 7373701-21-2025 10:15-0500 Respiratory rate3 /minKathy Lue [address] [place], [place] 7373701-21-2025 07:38-0500Mean blood tkexafts32 mm[Hg]Asuncion Lue [address] [place], [place] 7373701-07-2025 07:32-0500Blood Pressure LocationKathy Lue [address] [place], [place] 7373701-07-2025 07:32-0500 Diastolic blood nsgxndqa57 mm[Hg]Asuncion Lue [address] [place], [place] 7373701-07-2025 07:32-0500Heart rate87 /minKathy Lue [facility]01-07-2025 07:32-0500Mean blood nhqnaylu530 mm[Hg]Asuncion Lue [facility]01-07-2025 07:32-0500 Systolic blood anmevmiv631 mm[Hg]Asuncion Lue [address] [place], [place] 7373701-07-2025 07:32-0500Heart rate85 /minKathy Lue [address] [place], [place] 7373701-07-2025 07:32-9263IiD4% (BldA) [Mass fraction]98 %Asuncion Lue [address] [place], [place] 7373701-07-2025 07:32-0500 Respiratory rate18 /minKathy Lue [address] [place], [place] 7373701-07-2025 07:32-0500Blood Pressure LocationKathy Lue [facility]01-07-2025 07:32-0500 Diastolic blood ycunkhdd38 mm[Hg]Asuncion Lue [facility]01-07-2025 07:32-0500Mean blood brnqzzuq14 mm[Hg]Asuncion Lue [facility]01-07-2025 07:32-0500 Systolic blood ratqjosm440 mm[Hg]Asuncion Lue [facility]11-20-2024 11:04-0500Blood Pressure LocationKathy Lue [facility]11-20-2024 11:04-0500Diastolic blood wmgomkrm58 mm[Hg]Asuncion Lue [facility]11-20-2024 11:04-0500Heart rate60 /minKathy Lue [facility]11-20-2024 11:04-0500Systolic blood mm[Hg]Asuncion Lue [facility]11-20-2024 08:33-0500Body ettjbx775.94 cmC[facility]11-20-2024 08:33-0500Body mass index (BMI) [Ratio]31.6 kg/u0WcsbhbxulCincinnati Va Medical Center11-20-2024 08:33-0500Body .8 kgC[facility] Center11-20-2024 08:33-0500Diastolic blood gymrdtmz19 mm[Hg][facility]11-20-2024 08:33-0500Heart rate73 /[facility]11-20-2024 08:33-0500Respiratory rate12 /[facility]11-20-2024 08:33-0500Systolic blood wubuybmb366 mm[Hg][facility]10-11-2024 14:40-0400Body .5 cmSsalvador Fallon MD Work Phone: [facility]10-11-2024 14:40-0400Body mass index (BMI) [Ratio]30.36 kg/i0KkyfydiKasey Fallon MD Work Phone: [facility]10-11-2024 14:40-0400Body temperature 98.29 [degF]Kasey Fallon MD Work Phone: [facility]10-11-2024 14:40-0400Body yjnwrs05.3 kgKasey Fallon MD Work Phone: [facility]10-11-2024 14:40-0400Diastolic blood zwrqjayw53 mm[Hg]Kasey Fallon MD Work Phone: [facility]10-11-2024 14:40-0400Heart rate68 /min Kasey Fallon MD Work Phone: [facility]10-11-2024 14:40-4680LrT4% (BldA) [Mass fraction]95 %Kasey Fallon MD Work Phone: [facility]10-11-2024 14:40-0400Systolic blood cpaazovq525 mm[Hg]Kasey Fallon MD Work Phone: [facility]06-29-2024 09:32-0400Body syasur477 cm Jhonny Maher MD Work Phone: [place]06-29-2024 09:32-0400 Body mass index (BMI) [Ratio]28.71 kg/h9KkirvpcJhonny Maher MD Work Phone: [place]06-29-2024 09:32-0400 Body vlnisz16.53 kgJhonny Maher MD Work Phone: [place]06-04-2024 15:47-0400 Body acatnk440.94 cmC[facility]06-04-2024 15:47-0400Body mass index (BMI) [Ratio]29.7 kg/q1WuqyavgqcCincinnati Va Medical Center06-04-2024 15:47-0400Body tqgogkikbfn46.5 [degF][facility]06-04-2024 15:47-0400Body uncglz04.44 kgCincinnati Va Medical Center06-04-2024 15:47-0400Diastolic blood blzynjgd23 mm[Hg][facility] 08-20-2023 15:47-0400Heart rate88 /[facility] 08-20-2023 15:47-0400Respiratory rate18 /[facility] 08-20-2023 15:47-4139NkP8% (BldA) [Mass fraction]94 %[facility]06-04-2024 15:47-0400Systolic blood mm[Hg][facility]05-30-2024 08:14-0400Blood Pressure LocationMojovan Nettles [phone]-MtitmSelect [facility]05-30-2024 08:14-0400Diastolic blood lpiapeiz87 mm[Hg]Del Nettles [phone]-DrlufSelect [facility]05-30-2024 08:14-0400Heart rate80 /minMohamad Tho [phone]-XbynnSelect [facility]ty [facility]05-30-2024 08:14-0400Respiratory rate16 /minMohamad Antonuchli [phone]-UqafhSelect Medical Specialty [facility]05-30-2024 08:14-0400Systolic blood jbiihiia569 mm[Hg]Del Nettles [phone]-MjaofSelect Medical Specialty [facility]04-05-2024 14:42-0400Body jixfgw142.94 cmCincinnati Va [facility] Center04-05-2024 14:42-0400Body mass index (BMI) [Ratio]29.3 kg/m6XorkoaaqhCincinnati Va Medical Center04-05-2024 14:42-0400Body phygsd18.53 kgCincinnati [facility] Center 06-21-2023 14:42-0400Diastolic blood mm[Hg][facility]04-05-2024 14:42-0400Heart rate81 /minC[facility]innati [facility] Medical Center 06-21-2023 14:42-0400Respiratory rate20 /[facility] 06-21-2023 14:42-7555UtC7% (BldA) [Mass fraction]98 %[facility]04-05-2024 14:42-0400Systolic blood uephbuzf250 mm[Hg][facility]03-14-2024 08:08-0400Blood Pressure LocationMohamad Tho [phone]-Qiihk[address] [place], [place] 7743303-14-2024 08:08-0400Diastolic blood mm[Hg]Del Nettles [phone]-Qbgoe[address] [place], [place] 7743303-14-2024 08:08-0400Heart rate80 /minMohamad Tho [phone]-Yqlyb[address] [place], [place] 7743303-14-2024 08:08-0400Respiratory rate16 /minMohamad Antonuchbeltran [phone]-Hocvk[address] [place], [place] 7743303-14-2024 08:08-0400Systolic blood mm[Hg]Del Nettles [phone]-Hkjdl[address] [place], [place] 7743303-06-2024 09:15-0500Diastolic blood gpsengid20 mm[Hg]Del Nettles [facility]03-06-2024 09:15-0500Heart rate62 /minMohamad Antonuchli [facility]03-06-2024 09:15-0500Mean blood jsfkwvia56 mm[Hg]Del Nettles [facility]03-06-2024 09:15-0500 Respiratory rate19 /minMohamad Mouchli [address] [place], [place] 9961503-06-2024 09:15-6389LjQ9% (BldA) [Mass fraction]96 %Mohamad Mouchli [address] [place], [place] 9961503-06-2024 09:15-0500 Systolic blood uyoonqtf220 mm[Hg]Mohamad Mouchli [address] [place], [place] 9961503-06-2024 09:05-0500 Diastolic blood vxmsulxz11 mm[Hg]Mohamad Mouchli [address] [place], [place] 9961503-06-2024 09:05-0500Heart rate65 /minMohamad Mouchli [address] [place], [place] 7823603-06-2024 09:05-0500Mean blood fhegjfoj76 mm[Hg]Mohamad Mouchli [address] [place], [place] 9961503-06-2024 09:05-0500 Respiratory rate10 /minMohamad Mouchli [address] [place], [place] 9961503-06-2024 09:05-7777HpP2% (BldA) [Mass fraction]95 %Mohamad Mouchli [address] [place], [place] 9961503-06-2024 09:05-0500 Systolic blood ihrferka074 mm[Hg]Mohamad Mouchli [address] [place], [place] 9961503-06-2024 09:00-0500 Diastolic blood dpyxixhj82 mm[Hg]Mohamad Mouchli [address] [place], [place] 7823603-06-2024 09:00-0500Heart rate66 /minMohamad Mouchli [address] [place], [place] 9063003-06-2024 09:00-0500 Respiratory rate15 /minMohamad Mouchli [address] [place], [place] 7823603-06-2024 09:00-4622CnR4% (BldA) [Mass fraction]99 %Mohamad Mouchli [address] [place], [place] 7823603-06-2024 09:00-0500 Systolic blood xdkmrovw150 mm[Hg]Mohamad Mouchli [address] [place], [place] 7823603-06-2024 08:50-0500Body gehknndaian51.52 [degF]Mohamad Mouchli [address] [place], [place] 7823603-06-2024 08:45-0500 Respiratory rate24 /minMohamad Mouchli [address] [place], [place] 7823603-06-2024 08:40-0500 Respiratory rate24 /minMohamad Mouchli [address] [place], [place] 7823603-06-2024 08:35-0500 Respiratory rate22 /minMohamad Mouchli [address] [place], [place] 7823603-06-2024 07:14-0500Blood Pressure LocationMohamad Mouchli [address] [place], [place] 7823603-06-2024 07:14-0500Body oqmeqdhjtye75.88 [degF]Mohamad Mouchli [address] [place], [place] 7823602-27-2024 12:52-0500Blood Pressure LocationMohamad Mouchli [address] [place], [place] 9537502-27-2024 12:52-0500Diastolic blood efouhhmi08 mm[Hg]Mohamad Mouchli [address] [place], [place] [id number] 12:52-0500Heart rate89 /minMohamad Mouchli [phone]-ClhxuSelect [facility] [place]02-27-2024 12:52-0500Respiratory rate16 /minMohamad Mouchli [phone]-BcazaSelect [facility] [place]02-27-2024 12:52-0500Systolic blood kpaltlxh962 mm[Hg]Mohamad Tho [phone]-AahrcSelect [facility]ty [facility] [place]01-30-2024 09:00-0500Body rjceca709.94 cmBenjamin Ball Other [facility]01-30-2024 09:00-0500 Body mass index (BMI) [Ratio]30.12 kg/y7Xtkoaafk Ball Other [facility] [employer] Other 01-30-2024 09:00-0500Body xqtehy26.3 kgBenjamin Ball Other [facility]01-30-2024 09:00-0500 Diastolic blood rolethzg75 mm[Hg]Andrea Ball Other [facility]01-30-2024 09:00-0500 Respiratory rate20 /minBenjamin Ball Other [place] [employer] Other 01-30-2024 09:00-0699FhF2% (BldA) [Mass fraction]95 % Andrea Ball Other [place] [employer] Other 01-30-2024 09:00-0500Systolic blood ivyyqzvy589 mm[Hg] Andrea Ball Other [facility]12-04-2023 11:45-0500 Body pxejhj636.94 cmBenjamin Ball Other [place] [employer] Other 647254-19-2006 11:45-0500Body mass index (BMI) [Ratio]29.4 kg/s5Trjkpxol Ball Other [employer] Other 12-04-2023 11:45-0500Body yqtyod30.58 kgBenjamin Ball Other [employer] Other 12-04-2023 11:45-0500Diastolic blood rshthlyb13 mm[Hg] Andrea Ball Other [employer] Other 12-04-2023 11:45-0500Respiratory rate12 /minBenjamin Ball Other [employer] Other 12-04-2023 11:45-3854PbQ3% (BldA) [Mass fraction]98 % Andrea Ball Other [employer] Other 12-04-2023 11:45-0500Systolic blood vzuxdlzi348 mm[Hg] Andrea Ball Other [employer] Other 11-10-2023 08:30-0500Body lsteta943.94 cmBenjamin Ball Other [employer] Other 11-10-2023 08:30-0500Body mass index (BMI) [Ratio] 29.59 kg/h3Uqoeqaba Ball Other [employer] Other 11-10-2023 08:30-0500Body .03 kgBenjamin Ball Other [employer] Other 11-10-2023 08:30-0500Diastolic blood mm[Hg] Andrea Ball Other [employer] Other 11-10-2023 08:30-0500Respiratory rate12 /minBenjamin Ball Other [employer] Other 11-10-2023 08:30-0500Systolic blood knqncfau294 mm[Hg] Andrea Ball Other [employer] Other 09-27-2023 13:45-0400Body mmfrej948.94 cmBenjamin Ball Other [employer] Other 09-27-2023 13:45-0400Body mass index (BMI) [Ratio] 29.36 kg/f0Audgxumu Ball Other [employer] Other 09-27-2023 13:45-0400Body szutmh27.49 kgBenjamin Ball Other [employer] Other 09-27-2023 13:45-0400Diastolic blood ffacukgq17 mm[Hg] Andrea Ball Other [employer] Other 09-27-2023 13:45-0400Respiratory rate12 /minBenjamin Ball Other [employer] Other 09-27-2023 13:45-9794QvG3% (BldA) [Mass fraction]98 % Andrea Ball Other [employer] Other 09-27-2023 13:45-0400Systolic blood mm[Hg] Andrea Ball Other [employer] Other 08-17-2023 15:05-0400Body yxxlpq511.94 cmAmber Webster Other [facility] [employer] Other 08-17-2023 15:05-0400Body mass index (BMI) [Ratio] 28.34 kg/a4AyewiShannan Webster Other [employer] Other 08-17-2023 15:05-0400Body ugglarhwgjo58.2 [degF]Shannan Webster Other [employer] Other 08-17-2023 15:05-0400Body ykrtpx77.04 kgShannan Webster Other [employer] Other 08-17-2023 15:05-0400Diastolic blood jegvqjui92 mm[Hg] Shannan Webster Other [employer] Other 08-17-2023 15:05-0400Respiratory rate18 /minAmbsandro Darin Other [employer] Other 08-17-2023 15:05-5129HyA6% (BldA) [Mass fraction]99 % Shannan Webster Other [employer] Other 08-17-2023 15:05-0400Systolic blood gnhuktvz538 mm[Hg] Shannan Webster Other [employer] Other 12-19-2022 15:00-0500Body cbiqip810.56 cmJegeraldzohaib Chirinos Other [employer] Other 09-16-2022 09:55-0400Blood Pressure LocationKathy Lue [facility]09-16-2022 09:55-0400Diastolic blood ddsrwkyz07 mm[Hg]Asuncion Lue [facility]09-16-2022 09:55-0400Heart rate81 /minKatemmanuelle Buchanan [facility]09-16-2022 09:55-0400Systolic blood rqfeowgj800 mm[Hg]Asuncion Lue [facility]2022 10:15-0400Body okcpha082.56 cmThomas Olexa Other [employer] Other 2022 10:15-0400Body mass index (BMI) [Ratio] 24.89 kg/g6Ayjane Olexa Other [employer] Other 2022 10:15-0400Body vucrwc10.77 kgThomas Olexa Other [employer] Other Encounters Encounter DateEncounter TypeCare ProviderFacilityStart: 12-28-2024 End: 22-07-9105Zqathxdagoberto Vasquez MD Work Phone: noMS [facility] AllergyStart: 12-28-2024 End: 11-82-8001Nmmnzvdagoberto Vasquez MD Work Phone: NOMS [facility] AllergyStart: 12-28-2024 End: 46-13-2914Ffjxmf outpatient visit 25 minutesTomarco Vasquez MD Work Phone: noMS [facility] AllergyComment on above:Peripheral eosinophilia (Primary Dx); Chronic maxillary sinusitis; Cough variant asthma (HCC)Start: 12-28-2024 End: 36-69-6076gfowirmabbLWYYGeovany Zimmerman AvailableStart: 12-22-2024 End: 31-84-8569uatiketlyyHvwadyyq Ball DO Work Phone: [facility] Work Phone: Start: 12-22-2024 End: 90-31-9323Nbmjtmn encounter procedureBejennifer Chico DOSt. Charles Hospital Work Phone: Start: 12-10-2024 End: 09-72-7096dteufijlziChgzuvf A. MouchliFacility:Hardy DHStart: 12-10-2024 End: 67-15-4437Ovkrtmg encounter procedureMojovan Nettles [phone]-OzvejKettering [facility] Start: 10-29-2024 End: 03-84-6261Ftpyaezym encounterHibrittney Luther MD Work Phone: N[facility]S [facility] OtolaryngologyComment on above:refillStart: 28-51-0326Wuz-patient / Non-visitAbe Ramos DOInland Northwest Behavioral [facility] Work Phone: Start: 08-05-2024 End: 03-25-0473xcvmzvgrunJmhmpiz A. 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 LueFacility:EU BellevueStart: 07-06-2024 End: 21-13-3225fpxxhfvykjJbewk Coraez RNGastroenterologyStart: 07-01-2024 End: 60-42-6151Lfabyngnq encounterMabeth Hong RNGastroenterologyComment on above:Education Of Patient/family; Patient Question (Message sent to referring physician regarding a substitute for Gatorade)Start: 06-02-2024 End: 19-59-3335Qzmevlxjh to same day surgery Yovanny Buchanan [facility] Start: 06-02-2024 End: 39-97-4309rnfvccedlrSuecj M. LueFacility:FTMCStart: 05-22-2024 End: 78-45-0248Isxaixeom encounterSsalvador Fallon MD Work Phone: GastroenterologyComment on above:Patient Question Start: 05-20-2024 End: 51-09-4352otpbwxrtzvEdvcj M. LueFacility:FTMCStart: 05-20-2024 End: 04-24-2241Klmyzvy encounter procedureAsuncion Buchanan [facility] Start: 04-30-2024 End: 52-04-0286Bhlrqodagoberto Vasquez MD Work Phone: noms SWS ALLStart: 04-30-2024 End: 32-72-2807Ajzkrldagoberto Vasquez MD Work Phone: noms SWS ALLStart: 04-30-2024 End: 34-24-5196Xuieok outpatient visit 15 minutesTomarco Vasquez MD Work Phone: noms [facility] ALLComment on above:Chronic maxillary sinusitis (Primary Dx)Start: 04-30-2024 End: 34-98-3084vncpxyoiwrWTMCGeovany Zimmerman AvailableStart: 04-22-2024 End: 88-57-5508ohpzptsxryChjst M. LueFacility:EU BellevueStart: 04-22-2024 End: 51-35-1772Vtlzrzn encounter procedureAsuncion Buchanan [facility] start: 04-16-2024 End: 11-87-9208Yxjnir flowsheetKathleen E Rinkes DO Work Phone: noms [facility] OBStart: 04-16-2024 End: 98-95-0101Bxyijf flowsheetKathleen E Rinkes DO Work Phone: noms [facility] OBStart: 04-16-2024 End: 24-84-9613Bmacyat encounter statusKathleen E Rinkes DO Work Phone: noms HealthcareStart: 04-16-2024 End: 34-78-9230Fbxejkho preventive med est patient 65yrs& olderKathleen E Rinkes DO Work Phone: noms [facility] OBComment on above:Encounter for gynecological examination without abnormal finding; Screening for malignant neoplasm of cervix; Encounter for screening mammogram for breast cancer; Lichen sclerosus et atrophicus; Screening for osteoporosis; Postmenopausal status, age-relatedStart: 04-16-2024 End: 98-20-0940kietgmuskgBNJUOTTQ E RINKESNot AvailableStart: 04-08-2024 End: 39-92-4767movdrukqjyQgkdq M. LueFacility:EU BellevueStart: 04-08-2024 End: 71-71-0833Xhxecmd encounter procedureAsuncion Buchanan [facility] start: 04-07-2024 End: 88-07-1681Ypnqyurpj to same day surgery Lisaemmanuelle Buchanan [facility] Start: 04-07-2024 End: 87-58-6569pfaknqxhhhTwwhc MJose LueFacility:FTMCStart: 03-24-2024 End: 70-46-2426zbhhojszfwClwmb MJose LueFacility:FTMCStart: 03-24-2024 End: 94-23-6184Psmicgx encounter procedureVanessaemmanuelle Buchanan [facility] Start: 02-24-2024 End: 85-12-3418kvndchhelaJengf MJose LueFacility:FTMCStart: 02-24-2024 End: 62-98-4294Ljfrjgh encounter procedureVanessaemmanuelle Buchanan [facility] Start: 02-05-2024 End: 76-19-0553dzwhmpzealLkfnc MJose LueFacility:EU BellevueStart: 02-05-2024 End: 66-01-3187Aibbkzb encounter procedureAsuncion Buchanan [facility] start: 02-05-2024 End: 47-67-0577yynyganxmpBdgamhdhvWyandot Memorial Hospital Work Phone: Start: 02-05-2024 End: 41-86-5965Vbezbif encounter procedurePerson [facility] Physician GroupSt. Charles Hospital Work Phone: Start: 64-84-8068Ejrhlab encounter procedureProvidence Hospitaltart: 48-64-0244Ueb-patient / Non-visitPerson [facility] Work Phone: Start: 01-29-2024 End: 29-98-5748xvooqlnscvFEXZSHMW D ZADERRICKDana AvailableStart: 12-30-2023 End: 40-82-7018Zgghtn flowsheetCharito Vasquez MD Work Phone: NOMS SWS ALLStart: 12-30-2023 End: 57-72-6009Wjmrrg flowsheetTomarco Vasquez MD Work Phone: NOMS SWS ALLStart: 12-30-2023 End: 96-49-0263Zrdulf outpatient visit 15 minutesTomarco Vasquez MD Work Phone: NOMS SWS ALLComment on above:Chronic maxillary sinusitis (Primary Dx); Chronic pansinusitisStart: 12-30-2023 End: 35-56-5633obwqockmgyYEAZ E RAMBASEXIOMARAot AvailableStart: 12-27-2023 End: 06-55-8737Ucuywoo encounter procedureSsalvador Fallon MD Work Phone: GastroenterologyComment on above:Iron deficiency anemia due to chronic blood loss (Primary Dx); Abnormal finding on GI tract imagingStart: 12-27-2023 End: 99-15-5426siglnscmemESTPQRGR T SARMINIFacility:[facility] Start: 12-27-2023 End: 62-65-8181Eiq Drop offAsuncion Buchanan [facility] Start: 12-27-2023 End: 70-53-9583nrwbqoecgmTzmab M. 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 Work Phone: Start: 11-04-2023 End: 18-19-0553jltvhnivtfYTHNVSKLMarymount Hospitaltart: 91-46-0205Bnlnwbjqo encounterSsalvador Fallon MD Work Phone: GastroenterologyComment on above:Patient QuestionOther partial intestinal obstruction (HCC) (Primary Dx)Start: 24-40-4948Zyfmisgtl encounterCcf ProviderGastroenterologyComment on above:ConsultStart: 10-08-2023 End: 10-94-2084lbiuedzdcwBLQC W [facility] Hospitaltart: 09-14-2023 End: 73-42-9048Bfzewe outpatient new 60 minutesJhonny Maher MD Work Phone: uh [facility] CenterComment on above:Chronic maxillary sinusitis (Primary Dx); Chronic ethmoiditis; Chronic cough; Asthma, unspecified asthma severity, unspecified whether complicated, unspecified whether persistent (HHS-HCC)Start: 09-14-2023 End: 08-06-4325mzicsatjdxDFUKPZPBill MAHERAvita Health [facility] Start: 08-20-2023 End: 36-66-3603bxmwzxkuklItriftdotWyandot Memorial Hospital Work Phone: Start: 08-20-2023 End: 32-32-3933Advejnz encounter procedureDelbert Physician Group-[facility] Work Phone: Start: 08-15-2023 End: 84-65-2668bqxuqzojbhLkgblkm A. MouchliFacility:Hardy DHStart: 08-15-2023 End: 12-62-2639Nploxyp encounter procedureMojovan Nettles [phone]-ZjutrKettering Health [facility]est[facility] Start: 07-23-2023 End: 80-77-6506Ikgihwwjm Result EncounterHilary Elie Luther MD Work Phone: noms External Department UnsolicitedStart: 07-23-2023 End: 83-12-7974Zzjorzgbv Result EncounterHilary H Ashkan VILLEGAS Work Phone: noms External Department UnsolicitedStart: 07-23-2023 End: 04-41-4121qtgwlomctoKnjoyk H TimmisFacility:FTMCStart: 07-23-2023 End: 40-12-5052Vvrhftv encounter procedureHilary H Huntermis [facility] Start: 07-17-2023 End: 90-91-9189gdiyisyddkNluslaz A. MouchliFacility:Hardy DHStart: 07-17-2023 End: 65-39-2434Kyxmlov encounter procedureMojovan Duckworth Mouchli [phone]-XjydkKettering Health [facility] Start: 07-05-2023 End: 67-85-7970njzlspjwvvFeercjb A. MouchliFacility:FTMCStart: 07-05-2023 End: 39-15-7370Hbbpjom encounter procedureMoshayanad A. Mouchli [facility] Start: 07-04-2023 End: 14-87-8750fdqnzprnkjOhizovr A. MouchliFacility:Hardy DHStart: 07-04-2023 End: 76-33-8775Hhfqnvl encounter procedureMojovan Nettles [phone]-RqakdKettering Health [facility] Start: 03-24-2494Knt-patient / Non-visitPerson [facility] Physician [facility] [place] Work Phone: Start: 47-47-4539Tye-patient / Non-visitPerson [facility] Physician GroupInland Northwest Behavioral Health Professional [facility] Work Phone: Start: 69-26-0597bvtpwnvdbcXscbhgc A. Mouchli Facility:Hardy DHStart: 06-21-2023 End: 66-56-2819altrdoxsqsTcbffinllUK Healthcare Work Phone: Start: 06-21-2023 End: 28-22-3360Erbhfjr encounter procedureFircarilion roanoke [facility] Physician GroupSt. Charles Hospital Work Phone: Start: 05-30-2023 End: 61-93-9042eehygfjhlbYzvxuwl A. MouchliFacility:Hardy DHStart: 05-30-2023 End: 78-65-0475Mluutdm encounter procedureMojovan Nettles [phone]-CsixdKettering Health [facility] Start: 03-10-2378Vuz-patient / Non-visitPerson [facility] Physician [facility] [place] Work Phone: Start: 05-22-2023 End: 17-55-8302jfrwhcbmdzQbsjwid A. MouchliFacility:FTMCStart: 05-22-2023 End: 74-29-3003Cofoiuo encounter procedureDel Nettles [facility] Start: 05-14-2023 End: 15-84-0582kvcqyxdecoFqaebgn A. MouchliFacility:Hardy DHStart: 05-14-2023 End: 31-57-1436Bqmbtyz encounter procedureDel Nettles [phone]-RgzqxKettering Health [facility] Start: 04-22-2023 End: 09-79-1862whcoouoazbEpsjrjiy Ball Other [facility] [employer] Other Start: 05-68-0315Cudgzp flowsheetCharito Vasquez MD Work Phone: NOMS SWS ALLStart: 69-26-5374Dcsxot Virginia Vasquez MD Work Phone: noMS SWS ALLStart: 39-64-7213Qsebjdsrf encounter Andrea BallFPG [facility] ClinicStart: 04-19-2023 End: 89-50-2541zsiuwalugrRifqrrcz Ball Other [facility] [employer] Other Start: 15-06-8101Ritztdatk encounterBenjamin BallFPG [facility] ClinicStart: 17-96-1401Ysbwuwcgg encounterBenjamin BallFPG [facility] ClinicStart: 04-18-2023 End: 32-97-9833fecurirunbIafjkkue Ball Other [employer] Other Start: 04-16-2023 End: 40-22-9803ixbyibkmxfTfgdavib Ball Other [place] [employer] Other Start: 58-78-4510Mcdpax outpatient visit 25 minutes Andrea BallFPG [facility] ClinicStart: 04-16-2023 End: 42-79-4895Jcfwifk encounter procedureFirelands Physician Group-Start: 04-04-2023 End: 43-40-3809fxuhawhkycAdkqkmkb Ball Other [place] [employer] Other Start: 91-29-2931Biolczezd encounterBenjamin BallFPG [facility] ClinicStart: 03-08-2023 End: 94-44-4587gtchgjvgpeKgpxreks Ball Other [place] [employer] Other Start: 41-01-7791Mdvwsxcdt encounterBenjamin BallFPG [facility] ClinicStart: 03-06-2023 End: 76-02-6722kllkxwlnyuMkfztrol Ball Other [employer] Other Start: 03-39-2843Czijftcuv encounterBenjamin BallFPG [facility] ClinicStart: 02-25-2023 End: 37-48-8733eefdcjcjupTmrddgoz Ball Other [facility] [employer] Other Start: 22-78-8120Heptscswd encounterBenjamin BallFPG [facility] ClinicStart: 02-20-2023 End: 54-13-6109wbyzgidkyqXxkqs M. LueFacility:EU BellevueStart: 02-20-2023 End: 04-03-0470Lbajsry encounter Yun [facility]anan [facility] start: 02-18-2023 End: 45-68-9276brimarmfoiZtvoewcn Ball Other [place] [employer] Other Start: 17-41-7968Ghjhql outpatient visit 15 minutes Andrea BallFPG [facility] ClinicStart: 02-05-2023 End: 66-62-6269vxbbcdnzpsHtubzmsk Ball Other [employer] Other Start: 82-33-6490Jvslabeqp encounterBenjamin BallFPG [facility] ClinicStart: 01-31-2023 End: 75-45-6591baweiblgloBpuvpzyg Ball Other [employer] Other Start: 64-69-9262Asshpjwal encounterBenjamin BallFPG [facility] ClinicStart: 01-29-2023 End: 47-96-4953zpsgaqrfyfGmguhqfi Ball Other [employer] Other Start: 01-32-7371Nrqwvsvqx encounterBenjamin BallFPG [facility] ClinicStart: 01-25-2023 End: 59-16-3117pwechyvqzvAudmbdxy Ball Other [facility] [employer] Other Start: 93-43-2542Jbvwneu encounter procedureBenjamin BallFPG [facility] ClinicStart: 68-20-0757Ossiceqkg encounterBenjamin BallFP[facility] ClinicStart: 12-12-2022 End: 35-68-2318jgxjmyjfynXrxvwpct Ball Other [facility] [employer] Other Start: 15-90-3134Cicqcz outpatient visit 15 minutes Andrea BallFPG [facility] ClinicStart: 11-07-2022 End: 53-42-6801oqpiigeakwTcbdifoc Ball Other [facility] [employer] Other Start: 08-25-0605Hqqqpvblx encounterBenjamin BallFPG [facility] ClinicStart: 11-01-2022 End: 51-21-0103jynwxmvgbwMxjvu Keller Other [facility] [employer] Other Start: 51-03-2238Yfjmga outpatient visit 25 minutes Shannan KellerFPG Urgent Care ClydeStart: 06-27-2022 End: 72-56-0379echozzpmfdPG JEROME ESPINOSAFacility:D2Nrfnj: 06-04-2022 End: 00-71-0544amaxewnejxQrlxnsau Ball Other [employer] Other Start: 56-00-1707Yjzcwfaxz encounterBenjamin BallFPG [facility] ClinicStart: 05-17-2022 End: 55-53-9669mambhoorgsGM CAMPOS ERAZOFacility:A2Iwztn: 04-26-2022 End: 91-18-2005ityoxlxrawIL JEROME ESPINOSAFacility:J5Ucrxp: 04-25-2022 End: 26-30-2155cgrphyusijTracyjbr Ball Other [employer] Other Start: 91-02-0821Pornhwgxj encounterBenjamin BallFPG [facility] ClinicStart: 04-10-2022 End: 79-52-1884cmynzgsbejTgnogceb Ball Other [employer] Other Start: 12-41-1133Ynxhsnhgh encounterBenjamin BallFPG [facility] ClinicStart: 98-03-3920Gnwatxbyh for preprocedural cardiovascular examinationPETER D [facility] Hospitaltart: 17-80-5979Agbqnywxg for preprocedural laboratory examinationPETER D [facility] Start: 04-06-2022 End: 37-40-2760guwigwgoslIriwnxcv Ball Other [employer] Other Start: 67-81-6275Typjepxmg encounterBenjamin BallFPG [facility] ClinicStart: 04-05-2022 End: 18-92-5182fmiutjrxodXA JEROME ESPINOSAFacility:H3Nzxfe: 04-02-2022 End: 32-08-8423nuvmnrxkhfLTHTK D [facility] HOSPITALANDERFacility:G4Gtdfe: 04-02-2022 End: 73-58-1106Lndwzuwur for preprocedural cardiovascular examinationPETER D [facility] HOSPITALANDERFacility:T8Hwmoa: 03-28-2022 End: 06-17-1085gtodmtfvriTJ JEROME CANCINOERFacility:O3Wdncw: 03-20-2022 End: 85-68-2310njrkbfxzdrUJ ANDREA BALLFacility:L8Kqrqb: 03-12-2022 End: 37-25-0368zqkpfkfpniHS JEROME ESPINOSAFacility:P2Yatqr: 03-05-2022 End: 43-43-2044bwgnbusjyaBxifufzy [place] Other [facility] [employer] Other Start: 69-68-6735Lvpnll outpatient visit 15 minutes Luma Caprice [facility]icsStart: 01-29-2022 End: 32-79-8667hzpvbramxvXW ANDREA GOLDENFacility:Z9Igrbm: 81-06-7279Zlwjs health examinationAmbsandro Webster Other [place] [employer] Other Start: 12-01-2021 End: 10-48-0722Qmehhan encounter procedureAsuncion Buchanan [facility] Start: 10-10-2021 End: 82-17-0241fglgfzgoesXtbmfl Olexa Other [facility] [employer] Other Start: 40-34-0362Cppjcl outpatient visit 25 minutes Espinoza Stoll [facility] OrthopedicsStart: 10-10-2021 End: 07-56-0978Dmhyibg encounter procedureMD Espinoza Ruiz Work Phone: [facility] Start: 10-05-2021 End: 26-33-1559thrsyijecwWuitpk Olexa Other [facility] [employer] Other Start: 39-96-0906Nyicgszbn encounterThomas OlexaFPG [facility] OrthopedicsStart: 10-02-2021 End: 50-25-0979aslfkxiezsZI ANDREA BALLFacility:H1 Procedures DateProcedureProcedure DetailPerforming ClinicianStart: 85-27-0653Zqcahmlop upper small intestineShiorville Fallon MD Work Phone: Start: 72-98-7303BahrdfbjdvTjzil Lue Start: 12-56-2568LyjefyrevzEzzoj Lue Start: 95-80-6643BfakglvxzqmKpxrhypi Zaalonso DO Work Phone: Start: 01-29-2024 End: 54-26-3260Ioirc medical xm&eval comprhnsv estab pt 1/>Keratoconjunctivitis sicca of both eyes not specified as Sjogren'sJonathan Richard Zahler DO Work Phone: comment on above:Keratoconjunctivitis sicca of both eyes not specified as Sjogren's (Primary Dx); Blepharitis of upper and lower eyelids of both eyes, unspecified type; Bilateral posterior capsular opacificationStart: 39-68-0309Xmrqkvzwxn exam small int single contrast studyKasey Fallon MD Work Phone: Start: 90-65-0117DK MAXILLOFACIAL W/O CONTRASTHilary Elie Luther MD Work Phone: Start: 58-05-0278CbevwzlinfaPfcsljk Rodriguez MD Work Phone: Start: 89-93-2579BrysjmnxkvjAmefceu Mouchbeltran Start: 14-80-8245OukxsvyidbpociktbcdypftjqvEpwnuia Mouchbeltran Start: 16-46-8725LluamedlaryIhpx Rambasek MD Work Phone: Start: 71-47-0549Obfoy X-ray of left shoulderMD Espinoza Ruiz Work Phone: Start: 77-68-7542SrvryehspatQuxm Christina VILLEGAS Work Phone: Start: 69-63-1881PdyejtzndnnQdpcw Lue Start: 62-26-0692IbzrwoojosehmxxauldbsyxgepDbnbh Lue Start: 73-38-2729KqttufjahseEktgo Lue Comment on above:normalStart: 01-16-2015 EsophagogastroduodenoscopyKathy Lue Start: 32-11-0527ClxiaxzfujgzqovqfgsjimlzbkMrhwb Lue Start: 60-80-0246LjkzzyayablujeyfojpkrtjyuzKuvlq Lue Start: 02-59-2589Oiqhggjbxjzt cholecystectomyKathy Lue Start: 68-06-7393PzoyzggqfptZlhxg Lue Bilateral cataracts (disorder)Asuncion Lue Cesarean sectionKathy Lue Depression screeningAmber Webster Other Dilation and curettageKathy Lue Foot structure (body structure)Asuncion Lue History of cholecystectomyHx of cholecystectomyMohamad Mouchli Ligation of fallopian tubeKathy Lue Repair of musculotendinous cuff of shoulderKathy Lue Screening for malignant neoplasm of breastAmber Webster Other Screening for malignant neoplasm of colonAmber Webster Other Structure of right wrist (body structure)Asuncion Lue ThyroidectomyAsuncion Buchanan Plan of Treatment DateCare ActivityDetailAuthorStart: 75-47-5294Plfvqjkig for malignant neoplasm of colonNOMS HealthcareStart: 40-71-2140Fobebuqyk for malignant neoplasm of colonNOMS HealthcareStart: 05-11-2025 End: 14-42-8715Bfqsayv encounter procedureNOMS SWS OBStart: 04-29-2025 End: 86-88-6248Iygoveh encounter zgivdgxex81/12/2026 9:20 AM EST Office Visit [facility] [address] [place] [id number] Charito Vasquez MD [address] [place] [address] [facility] AllergyStart: 02-24-2025 End: 78-50-8422Ctjkrah encounter cpyacfgpv79/10/2025 10:50 AM EST Office Visit [facility] [address] [place], [id number] Janae Crane MD [address] [place] [address] [facility] DermatologyStart: 02-02-2025 Screening for malignant neoplasm of breastMammogramNOMS HealthcareStart: 02-02-2025 End: 74-43-3256Ktcgenz encounter procedureNOMS NB OPHTStart: 12-28-2024 End: 03-01-7308Gufrgpz encounter procedureNOMS SWS ALLComment on above:Arrived Start: 57-49-9637Ihopvzzhm vaccinationInfluenza Vaccine (#1)[facility] Start: 85-21-3733Pmwtk-19 Vaccine ( season)Covid-19 Vaccine ( season)[facility]: 07-13-2024 End: 94-72-6039Byflrkb encounter sgohcwseh91/28/2025 1:00 PM EDT Appointment Gastroenterology [address] [address] Kasey Fallon MD [facility] [address] [address] Iron deficiency anemia due to chronic blood loss [D50.0]GastroenterologyComment on above:Iron deficiency anemia due to chronic blood loss [D50.0]Start: 04-30-2024 End: 48-87-3800Lsolyow encounter procedureNOMS [facility] ALLComment on above:Arrived Start: 04-16-2024 End: 62-55-9020Utzigdz encounter nrnyeobkc80/30/2025 10:30 AM EST Office Visit [facility] [address] [place] [phone] Madison Burns, DO [address] [place] [address] Encounter for gynecological examination without abnormal finding; Screening for malignant neoplasm of cervix; Encounter for screening mammogram for breast cancer; Lichen sclerosus et atrophicusNOMS [facility] OBComment on above:Encounter for gynecological examination without abnormal finding; Screening for malignant neoplasm of cervix; Encounter for screening mammogram for breast cancer; Lichen sclerosus et atrophicusStart: 04-08-2024 End: 17-66-0805Gjlhtet encounter kujbyipny61/22/2025 9:45 AM EST Office Visit [facility] [address] [place] [phone] Madison Burns, DO [address] [place] [address] [facility] OBStart: 33-04-6288Bngfepv Directive Discussion Advance Directive DiscussionMemorial Health System [facility] Memorial Hospitaltart: 94-63-0723Tskxzvrlo for malignant neoplasm of breastMammogramNOMS HealthcareStart: 01-29-2024 End: 03-41-8935Ahowfni encounter ldqtipegi40/13/2024 8:15 AM EST Office Visit [facility] [address] [place] [address] Marsha Lal, DO [address] [place] [address] NOMAnkit FUNK OPHTStart: 01-20-2024 End: 30-41-5277Zoeilxr encounter jzhecrtnv38/04/2024 8:15 AM EST Office Visit [facility] [address] [place] [phone] Marsha Lal, DO [address] [place] [address] N[facility] BLESSING OPHTStart: 12-30-2023 End: 30-56-1321Sbtgloq encounter uudqzyuqh47/14/2024 9:20 AM EDT Office Visit [facility] ALL [address] [place] [phone] Charito Vasquez MD [address] [place] [address] ArrivedNOMS SWS ALLComment on above:ArrivedStart: 12-27-2023 End: 42-19-2912Hkpeins encounter bvztcexdz82/11/2024 4:30 PM EDT Office Visit Gastroenterology [address] [address] Kasey Fallon MD [facility] [address] [address] New Patient consult 30min- Double Balloon GastroenterologyComment on above:New Patient consult 30min- Double BalloonStart: 12-27-2023 End: 62-42-0033Tzlixmg encounter suncltrlz89/11/2024 9:40 AM EDT Appointment Radiology [address] [place] [address] Otherpartial intestinal obstruction (HCC) [K56.690]RadiologyComment on above: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]Start: 05-29-8444Fhfzy-19 Vaccine ( season)Covid-19 Vaccine ( season)[facility]: 89-13-5699Dksat-19 Vaccine ( season)Covid-19 Vaccine ( season)[facility]: 81-09-2942Tiddivkdx vaccinationInfluenza Vaccine (#1)[facility]: 10-31-2023 End: 25-34-9996ADBTSACKGT BLDCREATININE BLD Lab Routine Other partial intestinal obstruction (HCC) Expected: 10/31/2023, Ex[facility]: [facility] Comment on above:Expected: 10/31/2023, Expires: 01/30/2024Start: 10-08-2023 End: 45-07-6731Zuynvcr encounter wybwciphm29/23/2024 9:45 AM EDT Office Visit [address] [place] [address] [place] [address] [facility] [place] [address] [facility]: 95-47-3548STGAX-19 Vaccine ( season)COVID-19 Vaccine ()[place]Start: 04-22-2023 End: 93-62-1684Oxjdvvv encounter /05/2024 11:00 AM EST Office Visit [facility] ALL [address] [place] [address] Charito Vasquez MD [address] [place] [address] ArrivedNOMS SWS ALLComment on above:ArrivedStart: 91-35-1873Lwylvzk Directive DiscussionAdvance Directive DiscussionCleEast Liverpool City Hospitaltart: 93-70-9829Zckhixrru for malignant neoplasm of breastMammogram ScreeningCleEast Liverpool City Hospitaltart: 15-60-1523Ygmsl-19 Vaccine ( season) Covid-19 Vaccine ( season)[facility]: 05-01-2018Medicare Annual Wellness VisitMedicare Annual Wellness VisitMemorial Health System Marietta Memorial Hospitaltart: 45-47-4699KEK Vaccine (1 - 1-dose 60+ series)RSV Vaccine (1 - 1-dose 60+ series) [facility]: 28-84-5148Nlvpbfrn Vaccine (1 of 2)Shingrix Vaccine (1 of 2)[facility]: 83-99-9699Aufwvl Vaccines (1 of 2)Zoster Vaccines (1 of 2)[facility]: 37-92-7446Chtvpyqw Screening Diabetes ScreeningMemorial Health System Marietta Memorial Hospitaltart: 72-96-6371Tlsgu panelLipid Screening [facility]: 38-33-4055Peefesxjk for malignant neoplasm of colon [facility]: 09-84-8712ZTjB/Tdap/Td Vaccines (1 - Tdap)DTaP/Tdap/Td Vaccines (1 - Tdap)[place]: 42-81-5007Ivhod microalbumin profileDTaP,Tdap,Td Vaccine (1 - Tdap)[facility]: 03-56-6759Lfbpkle ScreeningAnxiety ScreeningMemorial Health System Marietta Memorial Hospitaltart: 1968 Depression ScreeningDepression ScreeningMemorial Health System Marietta Memorial Hospitaltart: 1968 Hepatitis C screeningHepatitis C ScreeningAdams County Hospitalrt: 72-16-5365Akomc panelLipid PanelUnOhioHealth Hardin Memorial HospitalStcookeville: 05-11-1953Medicare Annual Wellness VisitMedicare Annual Wellness Visit (AWV)[facility]: 27-54-2070Vikxsskyi for malignant neoplasm of colonSt. Louis VA Medical CenterStart: 48-90-2860Cdcahtd stimulating hormone measurementTSH Level [place] End: 49-90-3144XGD W Auto Differential panel - BloodCBC and differential Lab Routine Peripheral eosinophilia 12 Occurrences starting 12/28/2024 until [facility] Work Phone: Comment on above:12 Occurrences starting 12/28/2024 until 12/28/2025 End: 42-37-9788SC Small bowel W contrast PO and W contrast IVCT ENTEROGRAPHY W IVCON Radiology Routine Other partial intestinal obstruction (HCC) 1 Occurrences starting 10/31/2023 until 11/29/2024[facility] Work Phone: Comment on above:1 Occurrences starting 10/31/2023 until 11/29/2024DBT Breast - bilateral screeningBilateral screening mammogram with tomosynthesis Imaging Routine Encounter for screening mammogram for breast cancer Ordered: 04/16/2024[facility] HealthcareComment on above:Ordered: 04/16/2024DXA Skeletal system Views for bone densityDEXA bone density Imaging Routine Screening for osteoporosis Postmenopausal status, age-related Ordered: 04/16/2024[facility] HealthcareComment on above:Ordered: 04/16/2024 End: 89-89-4673JYGENIHTPXUGQWLHOAHZEQ Endoscopy Routine Iron deficiency anemia due to chronic blood loss Abnormal finding on GI tract imaging 1 Occurrences starting 12/27/2023 until 5CA[facility] Work Phone: Comment on above:1 Occurrences starting 12/27/2023 until 12/26/2024IGP, RFX APTIMA HPV ASCUIGP, RFX APTIMA HPV ASCU Lab Routine Screening for malignant neoplasm of cervix Ordered: 04/16/2024[facility]idel Work Phone: comment on above:Ordered: 04/16/2024Tissue Pathology biopsy reportTuscarawas Hospital Work Phone: Comment on above:Release Upon Ordering for 1 Occurrences starting 07/13/2024, 1 completedXR Lumbar spine ViewsC[facility]innati [facility] Immunizations Immunization DateImmunizationNotesCare CdvyrzabWnjvpnwm68-22-3379fzrjdgmab virus vaccine, unspecified formulationMojovan Nettles [facility]10-16-2023Flu Shot - Documentation Purposes OnlyBenjakrystal Golden Other [facility]10-16-2023influenza virus vaccine, unspecified formulationKathy Dewayne [facility]10-16-2023respiratory syncytial virus (RSV) vaccine, adjuvanted (AREXVY) Kasey Fallon MD Work Phone: [facility] HospitalJtsuch92-87-4404LDOJ-HxJ-5 (COVID-19) mRNAMUL.ORD!r05013Hhbqe Lue [facility]10-03-2022influenza (HD-IIV4) vaccine, age 65+ yr, high dose, quadrivalent, PF (FLUZONE HIGH-DOSE)Kasey Fallon MD Work Phone: [facility] HospitalMwsuxh80-32-5880yyvxacjlg virus vaccine, split virus (incl. purified surface antigen)Shannan Webster Other [employer] Other 10576966-10-2193fkfpavwmz virus vaccine, unspecified formulationKathy Lue [facility]04-19-2022SARS-CoV-2 (COVID-19) mRNA-1273 vaccineKathy Lue [facility]11-08-2021SARS-CoV-2 (COVID-19) mRNA-1273 vaccineKathy Lue [facility]09-08-2021influenza (aIIV4) vaccine, age 65+ yr, quadrivalent, PF (FLUAD QUAD)Kasey Fallon MD Work Phone: [facility] HospitalGmyvzp39-49-4767gobvlkzyi virus vaccine, split virus (incl. purified surface antigen)Shannan Webster Other [employer] Other 09289350-51-6842epjavkmxp virus vaccine, unspecified formulationKathy Lue [facility]03-18-2021SARS-CoV-2 (COVID-19) mRNA-1273 vaccineKathy Lue [facility]02-18-2021SARS-CoV-2 (COVID-19) mRNA-1273 vaccineKathy Lue [facility]01-01-2021SARS-CoV-2 (COVID-19) mRNA-1273 vaccineKathy Lue [facility] Centeromment on above:Result Comment: 3 shots to wmlk08-36-4331qjcyadzwd virus vaccine, split virus (incl. purified surface antigen)Shannan Webster Other [place] [employer] Other 175175-94-8575uxtuvdryd virus vaccine, unspecified formulationKathy Lue [facility]09-21-2020influenza, injectable, quadrivalent, preservative freeKasey Fallon MD Work Phone: [facility] HospitalWijbzw59-38-5399dwbejjqyu virus vaccine, unspecified formulationKathy Lue [facility]10-21-2019Influenza, injectable, Madin Judi Canine Kidney, preservative free, quadrivalentKasey Fallon MD Work Phone: [facility] HospitalXsvxwt26-41-7391hdltcpfxypds polysaccharide vaccine, 23 valentKathy Lue [facility]10-02-2019influenza virus vaccine, unspecified formulationKathy Lue [facility] [place] 927060-04-2018influenza virus vaccine, unspecified formulationKathy Lue [facility]y10-04-2018Seasonal trivalent influenza vaccine, adjuvanted, preservative Christina Fallon MD Work Phone: [facility] HospitalZwckag95-21-7020fcghzybyw virus vaccine, split virus (incl. purified surface antigen)Shannan Webster Other [place] [employer] Other 1387697-11-3022vyyadiitd virus vaccine, unspecified formulationKathy Lue [facility]y10-26-2017influenza, injectable, quadrivalent, preservative Christina Fallon MD Work Phone: [facility] HospitalHgcgxh13-21-9617rxzplyltkjmz conjugate vaccine, 13 valentKathy Lue [facility]y10-19-2016influenza virus vaccine, unspecified formulationKathy Lue [facility] [place] 927060-19-2016influenza, seasonal, injectable, preservative Christina Fallon MD Work Phone: [facility] HospitalApfpmc20-09-9141tevjviwavxyh polysaccharide vaccine, 23 valentKathy Lue [facility] Payers DatePayer CategoryPayerPolicy [id number] Health Insurance [id number] 1.2.840.856782.1.13.693.2.7.3.742400.315 2018Medicare 1.2.840.972410.1.13.693.2.7.3.345922.315 [id number] 2.16.840.3.94469[id number] 2.16.840.2.206863.6596-11-1953 [id number] 2.16.840.1.088362.3.579.2.47037-32-5559Rhclnmx8077106 2.16.840.1.556675.3.579.2.76768-65-6803Cetlprj1025453 2.16.840.1.204223.3.579.2.94958-67-7455Oemxbnn8585403 2.16.840.1.524925.3.579.2.94637-85-7698Vmeuaka9156153 2.16.840.1.333078.3.579.2.50090-98-2069Gxfpaxl6027600 2.16.840.1.021474.3.579.2.14260-11-7457Wzqysne3796971 2.16.840.1.272489.3.579.2.94154-09-1194Ukyadlf8870429 2.16.840.1.575764.3.579.2.37693-44-7924Abxiacd7089938 2.16.840.1.781234.3.579.2.37271-22-0136Jdizqit5090440 2.16.840.1.250986.3.579.2.93581-60-5447Afkwfkj97356832 2.16.840.1.478667.3.579.2.900720-39-1078Aghbzho95744698 2.16.840.1.310128.3.579.2.321032-03-3376Hhayodg40181027 2.16.840.1.061493.3.579.2.658070-62-1713Xltvekh22135412 2.16.840.1.577309.3.579.2.10236-19-6047Xgrqiju95495609 2.16.840.1.291155.3.579.2.18247-47-3689Sfkiotb65469879 2.16.840.1.341582.3.579.2.53320-32-2126Vyenzca37946435 2.16.840.1.091997.3.579.2.84446-50-8110Tfbbzcs99116069 2.16.840.1.346423.3.579.2.05941-47-6740Scoaxeb64881800 2.16.840.1.311193.3.579.2.18784-52-5455Aycvpyz23091256 2.16.840.1.085654.3.579.2.61946-44-7954Isaqofb30419619 2.16.840.1.768789.3.579.2.34434-92-8513Dqjnnuo22806985 2.16.840.1.965200.3.579.2.37167-23-3696Zljypga77270898 2.16.840.1.907280.3.579.2.29660-17-1486Vrgifql95812460 2.16.840.1.121529.3.579.2.35216-59-6513Teczukc51787439 2.16.840.1.133438.3.579.2.32237-57-2267Wuyxdde26579128 2.16.840.1.192419.3.579.2.10187-58-0222Bclukoj34537356 2.16.840.1.465192.3.579.2.57107-80-1982Mgtyyha26493121 2.16.840.1.195885.3.579.2.37173-90-6560Ufsszzb54487330 2.16.840.1.517606.3.579.2.21668-99-3158Llkgsaj40912542 2.16.840.1.478966.3.579.2.89366-55-6991Azqhxal65948615 2.16.840.1.602846.3.579.2.70472-62-2074Mglqirz05851638 2.16.840.1.443334.3.579.2.36929-59-9515Gpowgye11583120 2.16840.1.119744.3.579.2.77234-49-1530Grjvorj07192722 2.16840.1.740339.3.579.2.72413-32-3592Mbjswzc79207294 2.16840.1.975356.3.579.2.68691-39-3136Wlwgncy36989726 2.16840.1.837236.3.579.2.26029-37-3245Fsdgxpj89643656 2.16840.1.922665.3.579.2.953023-05-7060Yjahpid6447268 2.16840.1.605717.3.579.2.242656-13-9046Mqaaavl5386884 2.16840.1.259027.3.579.2.285966-47-7176Wryczbm5729338 2.16840.1.477555.3.579.2.944518-86-0509Luqthqz4295924 2.16840.1.804394.3.579.2.1259Self-paySelf Pay [id number] BC/[id number] Social History DateTypeDetailFacilityUnknown if ever smoked[place] [employer] Other Start: 03-07-2023 End: 74-51-8403Fyb Assigned At [facility] [employer] Other Start: 11-11-2018 End: 57-90-8883Ltxpjqk smoking status NHISNever smoked tobacco (finding) [facility]: 88-53-1521Mwq [facility] At [facility]: 12-24-8600Yvijtng smoking statusNever [facility] BellevueStart: 03-07-2023 End: 51-66-3140Hpnctvt use and exposureSmokeless tobacco non-userNOMS Healthcare Start: 03-07-2023 End: 87-29-7872Qjnbfaa intakeLifetime non-drinker (finding)[facility] HealthcareStart: 03-07-2023 End: 98-47-7928Jdekcmd of Social functionNOMS HealthcareStart: 77-16-5512Znaynyx CommentCaffeine : sodaNOMS HealthcareStart: 56-21-8725Hgljoe identityIdentifies as female gender (finding)[facility] HealthcareStart: 12-08-2007 End: 23-92-4935Ukohgik intakeCurrent non-drinker of alcohol (finding)[facility]tart: 50-19-2814Pdh Assigned At BirthNot on [facility] Work Phone: Start: 42-10-7408LabWyqcfc (finding)[facility]: 09-04-2023 End: 68-00-9457Aeuievge to SARS-CoV-2 (event)Not [facility] AkronSexual OrientationSelect Medical [facility] Medical Equipment Procedure CodeEquipment CodeEquipment Original TextEquipment IdentifierDates Arthroscopy, shoulderANCHOR SUTURE FT III 5.5X16.3MFDAStart: 11-11-2018 Arthroscopy, shoulderANCHOR SUTURE FT III 5.5X16.3MFDAStart: 11-11-2018 Arthroscopy, shoulderANCHOR SUTURE FT III 5.5X16.3MFDAStart: 11-11-2018 Arthroscopy, shoulderANCHOR SUTURE FT III 5.5X16.3MFDAStart: 11-11-2018 Arthroscopy, shoulderANCHOR SUTURE FT III 5.5X16.3MFDAStart: 11-11-2018 Arthroscopy, shoulderANCHOR SUTURE FT III 5.5X16.3MFDAStart: 11-11-2018 CYSTOSCOPY Dewayne VILLEGAS, Asuncion London 06/02/24 Unknown UrethraFDAStart: 06-02-2024 CYSTOSCOPY Asuncion Buchanan MD 06/02/24 Unknown UrethraFDAStart: 06-02-2024 CYSTOSCOPY Asuncion Buchanan MD 06/02/24 Unknown UrethraFDAStart: 06-02-2024 Functional Status DzysTaspkxdmuxZlyvkmQhnhrnnb32-38-0253Lwilvdkkxk StatusN/[facility] Wsyobb86-65-3524Wuhrjgmcrz StatusTrinity Health System [facility] Campus02-05-2025Functional StatusN/AExec[facility]01-07-2025Functional StatusTrinity Health System East Campus 85-73-4944Eknieaxcov StatusN/[facility]11-20-2024Functional StatusN/A[facility]05-30-2024 Functional StatusN/[facility] Fykxep04-76-6141 Functional StatusN/[facility] Zkaewu96-47-3329 Functional StatusN/[facility]02-27-2024Functional StatusN/A [facility] Vbujha29-18-5249Biogtsbdmb StatusN/A [facility]09-16-2022Functional StatusN/A[facility] Clinical Notes 10-10-2021 to 12-28-2024 Note Date & OgssVxehBxhuivdl67-25-0587 History of Present illness Narrative* Charito Vasquez MD - 12/28/2024 9:20 AM EDT Munira Chester returns to the office today for follow-up for her cough and chronic sinusitis. Her sinus symptoms were doing well except for the past few weeks with some drainage that she has beentreating with Cetirizine, Flonase, Xhance and Praneeth Med rinse. This regimen has been working pretty well for her recently. She was trying to wean herself off the Xhance and so has only been taking this once per day. No recent symptoms of vocal cord dysfunction. She feels Breo 200 has been working well for her cough. She has not needed her albuterol in one year. Albuterol azelastine Pulmicort cetirizine EpiPen famotidine Flonase Xhance levothyroxine montelukast On Xhance since 09/08 Uses Praneeth Med rinse Rhinolaryngoscopy showed thick secretions and inflammed arytenoids Eosinophil count 1,320 on 05/11 Pred and Doxy have been helpful for her episodes Diagnosed with vocal cord dysfunction EXAM The patient appears comfortable in the [...] any lesions, excoriations, or erythema. IMPRESSION: Chronic sinusitis - continue Flonase Cetirizine Xhance and Praneeth Med Eosinophilia - Given her recent elevated eosinophil count we agreed to obtain a CBC with differential and verify that her eosinophilia has resolved. If not then pursuing formal workup for this may bereasonable. Cough variant asthma - We discussed the risks and benefits of lowering her dose of Breo to the 100 mcg strength and she would like to defer on this at the current time. - Follow-up in 4 months or sooner should problems arise. documented in this encounterSt. Louis VA Medical CenterFvuyrrfyua99-06-2594 Telephone encounter Note* Telephone Encounter - Alycia Luther - 10/30/2024 1:40 PM EDT Left message for pt to call office back to schedule appt with Dr Luther. [facility] CenterVdxpnirjil85-62-8208 Miscellaneous Notes* Telephone Encounter - Alycia Luther - 10/30/2024 1:40 PM EDT Left message for pt to call office back to schedule appt with Dr Luther. * Telephone Encounter - Jeanette Luther MD - 10/30/2024 12:44 PM EDT Not seen in over a year. Needs appt or can get from PCP or OTC * Telephone Encounter - Asuncion Huddleston - 10/29/2024 10:41 AM EDT Pt called requesting a refill of Zyrtec called in to [facility] in [place]. She asked for the 90 day with 3 refills. Her call back [phone] documented in this encounterSt. Louis VA Medical CenterKeuhglaoxb01-20-4817 Telephone encounter Note* Telephone Encounter - Jeanette Luther MD - 10/30/2024 12:44 PM EDT Not seen in over a year. Needs appt or can get from PCP or OTC [facility] CenterFnywmljdgl58-95-7290 Telephone encounter Note* Telephone Encounter - Asuncion Huddleston - 10/29/2024 10:41 AM EDT Pt called requesting a refill of Zyrtec called in to [facility] in [place]. She asked for the 90 day with 3 refills. Her call back [phone] [facility] CenterUolhixrhev81-73-9476 Nurse Note* Linda Alvarado RN - 07/13/2024 3:30 PM EDT AMBULATORY PATIENT EDUCATION NOTE TOPIC: GI PROCEDURES: [...] / FAMILY RESPONSE: Verbalizes understanding of: WORSENING CONDITION- Signs and symptoms of aworsening condition that warrant a call to the physician FOLLOW-UP PLAN: Patient instructed to call with any further issues Recommend - Recommend continued instruction and follow up as directed Contact information given. SUPPLEMENTAL MATERIAL: Procedure Discharge Instructions REFERRAL (RECOMMENDATION): None Electronically Signed By: Linda Alvarado RN [facility]04-28-2025 Nurse Note* Linda Alvarado RN - 07/13/2024 3:30 PM EDT AMBULATORY PATIENT EDUCATION NOTE TOPIC: GI PROCEDURES: [...] / FAMILY RESPONSE: Verbalizes understanding of: WORSENING CONDITION- Signs and symptoms of aworsening condition that warrant a call to the physician FOLLOW-UP PLAN: Patient instructed to call with any further issues Recommend - Recommend continued instruction and follow up as directed Contact information given. SUPPLEMENTAL MATERIAL: Procedure Discharge Instructions REFERRAL (RECOMMENDATION): None * Mary Callejas RN - 07/13/2024 12:56 PM EDT PRE OP LEARNING ASSESSMENT PROCEDURE/SURGERY: GI PROCEDURES: Colonoscopy READINESS TO LEARN COGNITIVE ABILITY: Alert and oriented MOTIVATION TO LEARN: Eager FAMILY SUPPORT: High - Very involved in pt care PATIENT LEARNS BEST BY: Individual Instruction FACTORS AFFECTING LEARNING: None PHYSICAL LIMITATIONS AFFECTING LEARNING: None Electronically Signed By: Mary Callejas RN In Department: GASTROENTEROLOGY documented in this encounterCl[facility]04-28-2025 NoteQ3 Patient Name: Munira Chester Procedure Date: 07/13/2024 12:36 PM Date of : 1950 Admit Type: Outpatient Age: 73 Gender: Female Note Status: Finalized Attending MD: Kasey Fallon MD, [id number] Procedure: Lower Device-Assisted Enteroscopy without Fluoroscopy Indications: [...] that were not (more content not included)... [id number] NoteHNO ID: [id number] Author: ROSAURA MARIE APRN.IMPROVEMENT AUDITOR Service: ? Author Type: Nurse Pill Maker Type: Anesthesia Procedure Notes Filed: 07/13/2024 13:59 Note Text: ANESTHESIOLOGY PROCEDURE NOTE Airway General Information Procedure Start Time/Medication Administration: 07/13/2024 1:47 PM Procedure End Time: 07/13/2024 1:58 PM Patient location during procedure: OR Timeout Performed Pre-procedure: timeout performed Consent Obtained: Yes Patient identity confirmed: arm band and patient Staffing IMPROVEMENT AUDITOR: Rosaura Marie APRN.IMPROVEMENT AUDITOR Performed by: JOHNNY Indications and Patient Condition [...] 1 Airway not difficult SIGNATURE: Rosaura Marie APRN.IMPROVEMENT AUDITOR PATIENT NAME: Munira Chester DATE: July 13, 2024 TIME: 1:58 PM CSN: [id number] [facility] History and physical note* Kasey Fallon MD - 07/13/2024 1:00 PM EDT GI PROCEDURAL HISTORY AND PHYSICAL EXAM PLANNED PROCEDURE Rectal DBE ASSESSMENT Distal ileal strictures SUBJECTIVE HPI: This is a 73 year old female who presents with Hx of NSAID dependence and iron deficiency. Nowwith SBO symptoms. Capsule study showing ileal strictures [...] ORAL) Take by mouth. vit A/vit C/biotin/zinc/copper ([id number]-MWAB,VIT A,C-BIOTIN, ORAL) Take by mouth. aspirin 325 [...] (FLONASE) 50 mcg/actuation nasal spray Use 1 [place] Michael in each nostril once daily. atorvastatin (LIPITOR) [...] PATIENT NAME: Munira Chester DATE: 07/13/2024 TIME: 1344 [facility]04-28-2025 History and physical note* Kasey Fallon MD - 07/13/2024 1:00 PM EDT GI PROCEDURAL HISTORY AND PHYSICAL EXAM PLANNED PROCEDURE Rectal DBE ASSESSMENT Distal ileal strictures SUBJECTIVE HPI: This is a 73 year old female who presents with Hx of NSAID dependence and iron deficiency. Nowwith SBO symptoms. Capsule study showing ileal strictures [...] ORAL) Take by mouth. vit A/vit C/biotin/zinc/copper ([id number],VIT A,C-BIOTIN, ORAL) Take by mouth. aspirin 325 [...] (FLONASE) 50 mcg/actuation nasal spray Use 1 [place] Michael in each nostril once daily. atorvastatin (LIPITOR) [...] NAME: Munira Chester DATE: 07/13/2024 TIME: 5 [facility] Nurse Note* Mary Callejas RN - 07/13/2024 12:56 PM EDT PRE OP LEARNING ASSESSMENT PROCEDURE/SURGERY: GI PROCEDURES: Colonoscopy READINESS TO LEARN COGNITIVE ABILITY: Alert and oriented MOTIVATION TO LEARN: Eager FAMILY SUPPORT: High - Very involved in pt care PATIENT LEARNS BEST BY: Individual Instruction FACTORS AFFECTING LEARNING: None PHYSICAL LIMITATIONS AFFECTING LEARNING: None Electronically Signed By: Mary Callejas RN In Department: GASTROENTEROLOGY [facility]04-28-2025 NoteQ3 Patient Name: Munira Chester Procedure Date: 07/13/2024 12:36 PM Date of : 1950 Admit Type: Outpatient Age: 73 Gender: Female Note Status: Finalized Attending MD: Kasey Fallon MD, [id number] Procedure: Lower Device-Assisted Enteroscopy without Fluoroscopy Indications: [...] Code(s): --- Professional --- (more content not included)...[facility]04-23-[facility]25 NotePatient Education Urology Urinary Incontinence Urinary incontinence [...] stimulation). ? For women, using a medical dir to prevent urine leaks. This is a [...] your health care provider (more content not included)...[facility] 07-06-2024 Nurse Note* Noemí William RN - 07/06/2024 1:25 PM EDT Attempted to reach the patient at the contact number that they provided [phone] (home) [phone] (work) . 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 Failure to have a responsible adult accompany the patient to their procedure appointment prevents the useof sedation or anesthesia for their procedure; and [...] Number to call with questions or concerns [phone] Number to call to cancel their procedure [phone] Noemí William RN [facility]04-21-2025 Nurse Note* Noemí William RN - 07/06/2024 1:25 PM EDT Attempted to reach the patient at the contact number that they provided [phone] (home) [phone] (work) . 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 Failure to have a responsible adult accompany the patient to their procedure appointment prevents the useof sedation or anesthesia for their procedure; and [...] Number to call with questions or concerns [phone] Number to call to cancel their procedure [phone] Noemí William RN documented in [facility] encounterCl[facility]04-[facility]25 Telephone encounter Note * Telephone Encounter - Jacqueline Hong RN - 07/01/2024 3:45 PM EDT Prep question unable to take Gatorade / Message sent to referring [facility]04-16-2025 Miscellaneous Notes* Telephone Encounter - Jacqueline Hong RN - 07/01/2024 3:45 PM EDT Prep question unable to take Gatorade / Message sent to referring documented in this encounterCl[facility]03-20-2025 NoteProgress Note-Physician Patient: MUNIRA CHESTER Age: 73 [...] Problems Urinary tract infection / SNOMED CT 523992702 / Confirmed Intrinsic sphincter deficiency (ISD) / SNOMED CT 0764836223 / Confirmed Urethral caruncle / SNOMED CT 28782867 / Confirmed Small bowel stricture / SNOMED CT 4223326102 / Confirmed 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 Recurrent UTI / SNOMED CT 633052056 / Confirmed Osteopenia of lumbar spine / SNOMED CT 754049500 / Confirmed Nocturia / SNOMED CT 399667959 / Confirmed Mild persistent asthma / SNOMED CT 7491933703 / Confirmed Migraine / SNOMED CT 03369737 / Confirmed Microscopic hematuria / SNOMED CT 752100230 / Confirmed Lumbar spondylosis / SNOMED CT 354790504 / Confirmed Urethral lesion / SNOMED CT 5088556887 / Confirmed Mixed incontinence / SNOMED CT 74733791 / Confirmed Hypertension / SNOMED CT 7591973398 / Confirmed Hyperlipidemia / SNOMED CT 79250979 / Confirmed Personal history of colonic polyps / SNOMED CT 5852479026 / Confirmed History of gastric ulcer / SNOMED CT 253318161 / Confirmed H/O gastric ulcer / SNOMED CT 802054720 / Confirmed Graves disease / SNOMED CT 946370642 / Confirmed GERD (gastroesophageal reflux disease) / SNOMED CT 534348830 / Confirmed Incomplete bladder emptying / SNOMED CT 534368888 / Confirmed Epigastric pain / SNOMED CT 158051882 / Confirmed Chronic tension headache / SNOMED CT 035645318 / Confirmed Cervical spondylosis / SNOMED CT 7760867693 / Confirmed Bilateral cataracts / SNOMED CT 466248453 / Confirmed Benign essential hypertension / SNOMED CT 3592634 / Confirmed Hypothyroidism, acquired, autoimmune / SNOMED CT 854031511 / Confirmed Asymptomatic microscopic hematuria / SNOMED CT 4262315566 / Confirmed Asthma / SNOMED CT 661425611 / Confirmed Arthritis / SNOMED CT 7765550 / Confirmed Acute allergic rhinitis due to pollen / SNOMED CT 75295983 / Confirmed Abdominal bloating / SNOMED CT 051969892 / Confirmed Resolved: Reflux of urine / SNOMED CT 3743473310 Histories Procedure history: Cystoscopy, urethral biopsy ([id number]) on 04/07/2024 at 73 Years. Esophagogastroduodenoscopy (203541597) on 05/22/2023 at 72 Years. Colonoscopy ([id number]) on 05/22/2023 at 72 Years. Colonoscopy ([id number]) on 09/07/2019 at 69 Years. EGD - Esophagogastroduodenoscopy (8466076342) on 09/07/2019 at 69 Years. EGD - Esophagogastroduodenoscopy (6292066709) on 01/16/2015 at 64 Years. Colonoscopy ([id number]) on 01/16/2015 at 64 Years. Comments: 08/31/2019 16:19 EDT - Tonie Barragan LPN normal EGD - Esophagogastroduodenoscopy ([id number]) on 08/17/2011 at 61 Years. EGD - Esophagogastroduodenoscopy (3399762405) on 05/17/2011 at 60 Years. Laparoscopic cholecystectomy (02040857) on 06/16/2010 at 59 Years. Colonoscopy ([id number]) on 01/16/2010 at 59 Years. section (62111310). Rotator cuff repair (251865131). Tubal ligation (088789322). Cataracts (0605376976). Foot (85867691). Dilation and curettage (51769537). Thyroidectomy (61306335). Right wrist surgery (55765193). Social History Social & Psychosocial Habits Alcohol [...] adequate air exchange. Cardiovascular: Regular rhythm. Plan [place] Society of Anesthesiologists (ASA) physical status classification: Class III. Anesthetic Preoperative (more content not included)...[facility]:Result Comment: Electronically Signed By: Jay Jay Valderrama Jr, DO\.br\Date and Time Signed: 06/04/24 13:21 [id number] NoteProgress Note-Physician Patient: MUNIRA CHESTER Age: 73 [...] Discharge when meets criteria ( To home ).[facility] on above:Result Comment: Electronically Signed By: Jay Jay Valderrama Jr, DO\.br\Date and Time Signed: 06/04/24 13:19 EDT 06-02-2024 Evaluation + Plan noteExtracted from:Title:EU- BulkamidAuthor:Asuncion Buchanan MDDate:06/02/24 Impression and Plan Diagnosis Intrinsic sphincter deficiency (ISD) (AUV94-HJ N36.42, Discharge, Medical). Diagnosis Intrinsic sphincter deficiency (ISD) (WUO36-XE N36.42, Discharge, Medical). Future Appointments Appointment Date:07/08/2024 09:00:00 AM Scheduled Provider:Asuncion Buchanan MD Location:[facility] Appointment Type:URO Office Visit [facility] 03-18-2025 Hospital Discharge instructions Patient Education 06/02/2024 09:00:02 Post Op Patient Instructions - FT (CUSTOM) 06/02/2024 08:43:01 Lue - [employer] Post-Op Instructions (CUSTOM) [facility] [place], [place] Post-Operative Instructions for [employer] Congratulations on [...] may recommend a warm bath and/or an vhfk-wqa-gvvrqmn pain medication to reduce discomfort. If you [...] physician for acomplete list of instructions. 2020 [employer]. All rights reserved. This material contains registered trademarks, trade names, and brand names of [employer]. [phone] 02/2021 [employer] , [place] [address] [email or web address] Follow Up Care 04/22/2024 11:39:53 With:Asuncion Buchanan Address: [address] [place] [phone]- [phone] Business (1) When: Unknown Comments:Call to schedule your follow up in 1 month for PVR [facility] 03-18-2025 NotePatient Education - Text [facility] [place], [place] [facility] Congratulations on starting your journey towards [...] may recommend a warm bath and/or an ovye-efo-uvbylid pain medication to reduce discomfort. ??? If [...] for acomplete list of instructions. ??? 2020 [employer]. All rights reserved. This material contains registered trademarks, trade names, and brand names of [employer]. [phone] 02/2021 [employer] , [place] [address] [email or web address] [facility]03-07-2025 Telephone encounter Note* Telephone Encounter - Hollis Mckeon RN - 05/22/2024 11:40 AM EST Pt called, asked for return call. Called pt and question is what approval, upper or lower approvch for the enteroscopy procedure in June, she thought lower, but was told upper and concerned if lower, needs specific bowel prep, does better with miralax. Hollis Mckeon RN [facility] Work Phone: [phone] Miscellaneous Notes* Telephone Encounter - Hollis Mckeon RN - 05/22/2024 11:40 AM EST Pt called, asked for return call. Called pt and question is what approval, upper or lower approvch for the enteroscopy procedure in June, she thought lower, but was told upper and concerned if lower, needs specific bowel prep, does better with miralax. Hollis Mckeon RN documented in this encounterCl[facility]02-13-2025 History of Present illness Narrative* Charito Vasquez MD - 04/30/2024 9:20 AM EST Munira Chester returns to the office today and notes that her cough has been very rare but she still has frequent sneeze. She is still on Xhance and this will be coming from [facility] soon. It will be800 USD per 3 months at [facility]. She has no wheeze or [...] sooner should problems arise. documented in this encounterSt. Louis VA Medical CenterJjvulydgij59-68-4037 Hospital Discharge instructions Patient Education 04/22/2024 11:30:30 [...] nerve stimulation). ?For women, using a medical dir to prevent urine leaks. This is a [...] right after experiencing incontinence. General instructions Take ugtd-ash-wasomuw and prescription medicines only as told by [...] important. Where to find more information National [place] of Diabetes and Digestive and Kidney Diseases: www.niddk.nih.gov [employer] [employer] Association: www.urologyhealth.org Contact a health care [...] provider. Document Revised: 10/07/2020 Document Reviewed: 10/07/2020 [employer] Patient Education 2023 [employer]. Follow Up Care 03/05/2024 08:53:11 With:Asuncion Buchanan MD, URL, URO Address: When: Unknown [facility] [place] [facility] 02-05-2025 NotePatient Education Urology Urinary Incontinence Urinary [...] stimulation). ? For women, using a medical dir to prevent urine leaks. This is a [...] your health care provider (more content not included)...[facility] 04-16-2024 History of Present illness Narrative* Madison [...] Mammogram 02/03/24 wnl, DEXA 02/05/23 osteopenia @ [place] Review of Systems - General: Chills denies. [...] Review Audit Reviewed by Renita Lucia MA (Crowning Inspector) on 04/16/24 at 1057 Medication Order Taking? Sig Documenting Provider Last Dose Status albuterol HFA 90 mcg/act inhaler [id number] No Inhale 2 puffs Madison Burns, DO Taking Active amLODIPine (Norvasc) 5 MG tablet [id number] No Refills(s) 0 Madison Burns DO Taking Active atorvastatin (Lipitor) 10 MG tablet [id number] No 1 (one) time each day at the same time Madison Burns DO Taking Active azelastine (Astelin) 0.1 % nasal spray [id number] No Administer 2 sprays into each nostril in the morning and 2 sprays before bedtime. Use in each nostril as directed. Charito Vasquez MD Taking Active betamethasone valerate (Valisone) 0.1 % cream [id number] APPLY TO THE AFFECTED AREA TWICE A DAY Madison Burns DO Active betamethasone valerate (Valisone) 0.1 % ointment [id number] APPLY TO THE AFFECTED AREA EXTERNALLY TWOTIMES A DAY, REPLACES PREVIOUS SENT SCRIPT Madison Burns DO Active budesonide (Pulmicort) 0.5 MG/2ML nebulizer solution [id number] Take 2 mL (0.5 mg) by nebulization inthe morning. Rinse mouth with water after use to reduce aftertaste and incidence of candidiasis. Donot swallow.. Charito Vasquez MD Active cetirizine (ZyrTEC) 10 MG tablet [id number] Take 1 tablet (10 mg) by mouth Daily as needed for allergies Jeanette Luther MD Active doxycycline (Adoxa) 100 MG tablet [id number] No Take 100 mg by mouth in the morning and 100 mg beforebedtime. Take with a full glass of water and do not lie down for at least 30 minutes after. Jeanette Luther MD Taking Active EpiPen 2-Giovani 0.3 MG/0.3ML injection syringe [id number] No as directed Injection Juan Hutchison Active estradiol (Estrace) 0.1 MG/GM vaginal cream [id number] No See Instructions, 42.5 gm, Refill(s) 0, apply pea sized amount to urethra 2x/wk, [facility], 158, cm, 02/20/23 8:48:00 EST, Height/Length Dosing, 68.5, kg, 02/20/23 8:48:00 EST, Weight Dosing Madison Burns, DO TakingActive famotidine (Pepcid) 20 MG tablet [id number] No Take by mouth Madison Burns DO Taking Active fluocinonide (Lidex) 0.05 % external solution [id number] No Apply to affected areas on the scalp, up to twice a day when flared, 30 day supply Ama Mclaughlin APRN-JOSHUA Taking Active fluticasone (Flonase) 50 MCG/ACT nasal spray [id number] No Administer 2 sprays into each nostril Daily Shake gently. Before first use, prime pump. After use, clean tip and replace cap. Jeanette Luther MD Taking Active Fluticasone Propionate (Xhance) 93 MCG/ACT Exhaler Suspension [id number] Administer 1 spray into affected nostril(s) in the morning and 1 spray before bedtime. Charito Vasquez MD Active Fosamax 70 MG tablet [id number] No 1 tablet 30 minutes before the first food, beverage or medicine ofthe day with plain water Orally for 30 day(s) Madison Burns, DO Taking Active guaiFENesin-codeine (Robitussin-AC) 100-10 MG/5ML syrup [id number] No Take 5 mL by mouth 3 (three) times a day as needed Taking Active levothyroxine (Synthroid, Levoxyl) 88 MCG tablet [id number] No 1 (one) time each day at the same timeMadison Burns DO Taking Active loratadine-pseudoephedrine ER (Claritin-D 12-hour) 5-120 MG 12 hr tablet [id number] No Take 1 tablet by mouth in the morning and 1 tablet before bedtime. Do not crush, chew, or split.. Charito Vasquez MD Taking Active metoclopramide (Reglan) 10 MG tablet [id number] No Take 10 mg by mouth in the morning and 10 mg at noon and 10 mg in the evening and 10 mg before bedtime. Taking Active montelukast (Singulair) 10 MG tablet [id number] No 1 (one) time each day at the same time Madison Burns DO Taking Active pantoprazole (ProtoNix) 40 MG EC tablet [id number] Take 1 tablet (40 mg) by mouth in the morning and 1 tablet (40 mg) before bedtime. Do not crush, chew, or split.. Charito Vasquez MD Active predniSONE (Deltasone) 20 MG tablet [id number] No Take 20 mg by mouth Daily Taking Active RA Vitamin D-3 50 MCG (1999) capsule [id number] No Take 50 mcg by mouth in [...] Z78.0 DEXA bone density documented in this encounterSt. Louis VA Medical CenterBalsalmtvo27-16-6196 NoteProgress Note-Physician Patient: MUNIRA CHESTER Age: 73 years Sex: Female : 1950 Associated Diagnoses: None Author: MD Camacho Ahmad F Postoperative Information Postoperative disposition: Postoperative disposition: To PACU. Optimetrix number: Optimetrix number [id number]. Anesthetic utilized: General. Health Status Allergies: Allergic [...] Discharge when meets criteria ( To home ).[facility] on above:Result Comment: Electronically Signed By: MD [...] day(s), # 2 tab(s), Refills(s) 0, Pharmacy: [email or web address], 158, cm, 03/24/24 11:38:00 EST, Height/Length Dosing, 75.5, kg, 03/24/24 11:38:00 EST, Weight Dosing... Macrobid 100 mg Cap: 100 mg = 1 cap(s), Oral, As Directed, take 1 tablet within 1 hour before or after intercourse to prevent infection., # 30 cap(s), Refills(s) 3, Pharmacy: [facility], 158, cm, 02/20/23 8:48:00 EST, Height/Length Dosing, 68.5, kg,... Pantoprazole [address] Tab: 40 mg = 1 tab(s), Oral, Daily, # 90 tab(s), Refills(s) 1, [facility], 154.9, cm, 12/11/19 9:26:00 EDT, Height/Length Dosing, 70.2, kg, 12/11/19 9:26:00 EDT, Weight Dosing estradiol 0.1 mg/g Vag Crm: See Instructions, 42.5 gm, Refill(s) 0, apply pea sized amount to urethra 2x/wk, [email or web address], 158, cm, 02/05/24 11:08:00 EST, Height/Length Dosing, 62, kg, 02/05/24 11:08:00 EST, Weight Dosing oxybutynin 5 mg Tab: 5 mg = 1 tab(s), Oral, TID, PRN bladder spasms, # 30 tab(s), Refills(s) 0, Pharmacy: [facility], 158, cm, 03/24/24 11:38:00 EST, Height/Length [...] of stomach acid fluticasone 0.05 mg/inh Nasal [place] Michael: 2 spray(s), Nasal, Daily, Refill(s) 0 levothyroxine 100 mcg (0.1 mg) Tab: 100 mcg = 1 tab(s), Oral, Daily, Refills(s) 0, Thyroid montelukast 10 mg Tab: 10 mg = 1 tab(s), Oral, qPM, # 90 tab(s), Refills(s) 0, Asthma orphenadrine compounding powder: PRN Migraine headache, Refills(s) 0 Problem list: All Problems Acute allergic rhinitis due to pollen / SNOMED CT 08833328 / Confirmed Benign essential hypertension / SNOMED CT 2663663 / Confirmed GERD (gastroesophageal reflux disease) / SNOMED CT 964352691 / Confirmed Lumbar spondylosis / SNOMED CT 451146847 / Confirmed Cervical spondylosis / SNOMED CT 8662216803 / Confirmed History of gastric ulcer / SNOMED CT 925223365 / Confirmed Osteopenia of lumbar spine / SNOMED CT 962008774 / Confirmed Hyperlipidemia / SNOMED CT 88724641 / Confirmed Hypothyroidism, acquired, autoimmune / SNOMED CT 770172256 / Confirmed Chronic tension headache / SNOMED CT 996603115 / Confirmed Mild persistent asthma / SNOMED CT 0609448771 / Confirmed Bilateral cataracts / SNOMED CT 492353016 / Confirmed Migraine / SNOMED CT 04463899 / Confirmed Duodenal stricture / SNOMED CT 40519393 / Confirmed H/O gastric ulcer / SNOMED CT 692832848 / Confirmed Personal history of colonic polyps / SNOMED CT 4381635713 / Confirmed Epigastric pain / SNOMED CT 018312681 / Confirmed Abdominal bloating / SNOMED CT 211743514 / Confirmed Graves disease / SNOMED CT 423218205 / Confirmed Hypertension / SNOMED CT 3156265701 / Confirmed Asthma / SNOMED CT 988660541 / Confirmed Arthritis / SNOMED CT 5822322 / Confirmed Urinary tract infection / SNO (more content not included)...[facility]Comment on above:Result Comment: Electronically Signed By: MD Camacho Ahmad F\.br\Date and Time Signed: 04/07/24 17:50 [id number] Evaluation + Plan noteExtracted from:Title:ANES Post Op - GeneralAuthor:MD Camacho Ahmad F Date:04/07/24 Plan Transfer/Discharge: Transfer/Discharge Discharge when meets criteria ( To home ). 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 Urethral caruncle (VRK23-RZ N36.2, Discharge, Medical). 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 Urethral caruncle (PTI82-AC N36.2, Discharge, Medical). Extracted from:Title:ANES Pre Op - Adult GeneralAuthor:MD Doug, Ahmad F Date:04/07/24 Plan [place] Society of Anesthesiologists (ASA) physical status classification: Class III. Anesthetic Preoperative Plan Anesthesia: General. . Anesthetic plan, risks, benefits, and alternatives discussed with the patient and/or family. Risks discussed: nausea, vomiting, headache, sore throat, dental injury, serious complications. Patient verbalized understanding. Communication: face to face with patient 5 minutes. 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 6. Keep the drainage bag [...] Instructions - FT (Custom) (CUSTOM) 04/07/2024 10:38:45 [place] - Post Op INstructions for Bladder Tumor, Bladder Biopsy (CUSTOM) [facility] [place], [place] Post-Operative Instructions *Even though there are [...] bleeding * AZO (phenazopyridine) can be purchased qqms-yda-ljuueho for burning with urination. This will make [...] do not hear from us by tomorrow. ([phone] or [phone]) Follow Up Care 02/24/2024 10:45:49 With:Asuncion Buchanan Address: [address] [place] [phone]- [phone] Business (1) When: Unknown Comments:Office to call to schedule your follow up: white removal and voiding trial in 1-2 days once urine is clear. Follow up in 1-2 weeks for pathology review. 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 6. Keep the drainage bag [...] and call with any concerns. [facility] [place], [place] Post-Operative Ins (more content not included)...[facility] 02-24-2024 Evaluation + Plan noteExtracted from:Title:EU- Clinic noteAuthor:Dewayne VILLEGAS, Asuncion Mitchell.Date:02/24/24 Impression and Plan 73 yo female here [...] Appointments Appointment Date:03/24/2024 07:30:00 AM Scheduled Provider: Location:[facility] Appointment Type:Surgical PAT FT Appointment Date:04/07/2024 09:30:00 AM Scheduled Provider: Location:[facility] Appointment Type:Surgery FT Diagnostic Tests Pending * Urine Cytology ([facility]) 02/24/24 [facility] 12-09-2024 NoteProgress Note-Physician Patient: MUNIRA CHESTER Age: [...] infection., # 30 cap(s), Refills(s) 3, Pharmacy: [facility], 158, cm, 02/20/23 8:48:00 EST, Height/Length Dosing, 68.5, kg,... Pantoprazole [address] Tab: 40 mg = 1 tab(s), Oral, Daily, # 90 tab(s), Refills(s) 1, Pharmacy: [facility] [facility], 154.9, cm, 12/11/19 9:26:00 EDT, Height/Length Dosing, 70.2, kg, 12/11/19 9:26:00 EDT, Weight Dosing estradiol 0.1 mg/g Vag Crm: See Instructions, 42.5 gm, Refill(s) 0, apply pea sized amount to urethra 2x/wk, [email or web address], 158, cm, 02/05/24 11:08:00 EST, Height/Length [...] of stomach acid fluticasone 0.05 mg/inh Nasal [place] Michael: 2 spray(s), Nasal, Daily, Refill(s) 0 levothyroxine [...] biopsy results. 3. Ure (more content not included)...[facility]:Result Comment: Electronically Signed By: Dewayne VILLEGAS, Asuncion London\.br\Date and Time Signed: 02/24/24 12:[id number] Hospital Discharge instructions Patient Education 02/24/2024 10:20:28 [...] cysto, urethral biopsy with fulguration under anesthesia [facility] 12-09-2024 NotePatient Education Cystoscopy ??? Voiding after [...] if you have a fever over 100 degrees.[facility] 02-05-2024 Hospital Discharge instructions Patient Education 02/05/2024 [...] provider. Document Revised: 07/13/2021 Document Reviewed: 07/13/2021 TRANSCORP Patient Education 2023 Vericant. Follow Up Care 02/20/2023 09:54:54 With:Dewayne VILLEGAS, Asuncion London, URL, URO Address: When: Unknown Comments:Schedule Cysto and Pelvic Exam [facility] 11-20-2024 NotePatient Education Obstetrics and Gynecology [...] provider. Document Revised: 07/13/2021 Document Reviewed: 07/13/2021 TRANSCORP Patient Education ? 2023 Vericant.[facility] 01-29-2024 History of Present illness Narrative* Marsha [...] laser capsulotomy, they are to notify their manager local promptly if they have a significant change in symptoms, such as flashes of light (photopsia), an increase in floaters, loss of visual field or decrease in visual acuity. documented in this encounterSt. Louis VA Medical [id number] Evaluation note* Diagnosis Onset Date Resolution Status Admit Date Asthma acuteFebruary 05, 2024 8:24amHypertensionacuteNov2023 8:24am HypothyroidismacuteFebruary 05, 2024 8:24amIron deficiency anemiaacuteFebruary 05, 2024 8:24amMedicare annual wellness visit, subsequentacuteFebruary 05, 2024 8:24amOsteoporosisacuteFebruary 05, 2024 8:24amScreening mammogram for breast canceracuteFebruary 05, 2024 8:24amSmall bowel strictureacuteFebruary 05, 2024 8:24am [facility] Work Phone: [phone] History of Present illness Narrative* Charito Vasquez [...] Xhance lavage and try and send to [facility]. Follow-up in 4 months. Discuss simons again at that time to see if [facility] pharmacy has been less expensive for her Xhance. documented in this encounterSt. Louis VA Medical [id number] Instructions* Patient Instructions* Kasey Fallon MD - [...] am on dialysis? A: Please consult your carbon accountant prior to scheduling to get instructions pertinent to you. In general, dialysis patients take the The Social [employer] SLytely bowel prep and have the procedure same [...] rest of the day. documented in this encounterCl[facility]10-[facility] History of Present illness Narrative* Kasey [...] balloon enteroscopy Kasey Fallon MD 12/27/2023 Staff [employer] [facility] , REFERRING PROVIDER: Jones Ace [address] [facility] [address] REASON FOR REFERRAL: Small bowel stricture HISTORY: [...] Inhale 1 Inhalation as instructed once daily. Obhpumygre-Btpckrwzcnuls-Znei (FIORICET) 50-300-40 mg cap Take by mouth. EPINEPHrine (EPIPEN) 0.3 mg/0.3 mL auto-injector Inject 0.3 mg intramuscularly as needed. fluticasone (FLONASE) 50 mcg/actuation nasal spray Use 1 [place] Michael in each nostril once daily. atorvastatin (LIPITOR) [...] dilated small bowel. No visualized stricture. 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 Right [...] of records, and documentation. documented in this encounterClinton [facility] Hospital10-11-2024 NoteHNO ID: [id number] Author: KASEY FALLON MD Service: ? Author [...] balloon enteroscopy Kasey Fallon MD 12/27/2023 Staff [employer] [facility] , REFERRING PROVIDER: Jones Ace [facility] [address] REASON FOR REFERRAL: Small bowel stricture HISTORY: [...] Inhale 1 Inhalation as instructed once daily. Ubtwlcntnq-Ncbhrqkrzzyew-Tezq (FIORICET) 50-300-40 mg cap Take by mouth. EPINEPHrine (EPIPEN) 0.3 mg/0.3 mL auto-injector Inject 0.3 mg intramuscularly as needed. fluticasone (FLONASE) 50 mcg/actuation nasal spray Use 1 [place] in each nostril once daily. atorvastatin (LIPITOR) [...] History: S/p laparoscopic cholecystectomy (more content not included)...[facility]10-09-2024 Telephone encounter Note* Telephone Encounter - Hollis Mckeon RN - 12/25/2023 2:56 PM EDT Pt called and left VM, said had small bowel xray done, saw results and now questioning if still needs appt with Dr. Fallon, scheduled for 12/26, asking for return call to clarify if still needs to come or can cx. Call cell phone at [phone]. Hollis Mckeon RN [facility]10-09-2024 Miscellaneous Notes* Telephone Encounter - Hollis Mckeon RN - 12/25/2023 2:56 PM EDT Pt called and left VM, said had small bowel xray done, saw results and now questioning if still needs appt with Dr. Fallon, scheduled for 12/26, asking for return call to clarify if still needs to come or can cx. Call cell phone at [phone]. Hollis Mckeon RN documented in this encounterClinton [facility] Hospital10-08-2024 History of Present illness Narrative* Mary [...] PATIENT PRESENTS WITH AN IMPLANTABLE OR ATTACHED 3D ANIMATOR: No RADIOLOGY DEPARTMENT: General X-ray: Exam(s) Completed: GI/ Procedure(s): Small bowel series withbarium contrast PERIPHERAL IV DATA: Not applicable SIGNED BY: MAC Borrero) December 24, 2023 2:19 PM documented in this encounterClinton Memorial Hospital10-08-2024 NoteHNO ID: [id number] Author: MARY JIMENEZ RT (R) Service: Radiology [...] PATIENT PRESENTS WITH AN IMPLANTABLE OR ATTACHED 3D ANIMATOR: No RADIOLOGY DEPARTMENT: General X-ray: Exam(s) Completed: GI/ Procedure(s): Small bowel series with barium contrast PERIPHERAL IV DATA: Not applicable SIGNED BY: Mary Jimenez, RT(R) December 24, 2023 2:19 [facility]09-18-2024 Telephone encounter Note* Telephone Encounter - Hollis Mckeon RN - 12/04/2023 11:11 AM EDT Pt left VM and would like to reschedule GI test to earlier in week due to would like to come with her and drive and then maybe MD would also have test results before appt. Hollis Mckeon RN [facility]09-18-2024 Miscellaneous Notes* Telephone Encounter - Hollis Mckeon RN - 12/04/2023 11:11 AM EDT Pt left VM and would like to reschedule GI test to earlier in week due to would like to come with her and drive and then maybe MD would also have test results before appt. Hollis Mckeon RN documented in this encounterClinton [facility] Hospital08-15-2024 Telephone encounter Note * Telephone Encounter - Rehana Hoang - 10/31/2023 9:30 AM EDT Patient called to see if you have received a fax from a Dr. Nettles's office for a pill cam? [facility]08-15-2024 Miscellaneous Notes* Telephone Encounter - Rehana Hoang - 10/31/2023 9:30 AM EDT Patient called to see if you have received a fax from a Dr. Nettles's office for a pill cam? documented in this encounterClinton [facility] Hospital07-31-2024 Telephone encounter Note * Telephone Encounter - Hollis Mckeon RN - 10/16/2023 1:49 PM EDT Faxed referral received on 10/15/23 for pt sent from Dr. Ace from [facility] to attention Dr. Fallon, for pt for GI for consideration for double balloon enteroscopy. What records were received were scanned to chart. Hollis Mckeon RN [facility]07-31-2024 Miscellaneous Notes* Telephone Encounter - Hollis Mckeon RN - 10/16/2023 1:49 PM EDT Faxed referral received on 10/15/23 for pt sent from Dr. Ace from [facility] to attention Dr. Faloln, for pt for GI for consideration for double balloon enteroscopy. What records were received were scanned to chart. Hollis Mckeon RN documented in this encounterClinton Memorial Hospital06-29-2024 History of Present illness Narrative* Jhonny [...] doxycycline and prednisone. She was transitioned from [facility] to [facility] without significant benefit. When she was assessed [...] contrast media, Iodine, Wasp venom, Amoxicillin, Sulfacetamide pqc-tmzizl-mctz, Penicillin, and Sulfa (sulfonamide antibiotics) Current Meds: [...] apply pea sized amount to urethra 2x/wk, [facility], 158, cm, 02/20/23 8:48:00 [...] at the same time, Disp: , Rfl: hdhhmwvgzz-kjyhgcnhwokfv-tufp (Fioricet) 50-300-40 mg capsule, Take by mouth., [...] LAD, no thyroid masses. SINONASAL ENDOSCOPY (CPT 31689): To better evaluate the patient's symptoms, sinonasal [...] given doxycycline and asked to begin dextromethorphan grwf-owo-xbhilkq. 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 All questions were answered. Between lvxw-xn-lfxk contact, review of the medical record, and documentation I spent 65 minutes onthis evaluation during the day of service. Signature: Jhonny Maher MD documented in this [facility] Work Phone: 1(842) 607-383306-20-2024 Mason from [facility] called stating that a referral was faxed ton August 25 for patient for a double balloon enteroscopy. Had spoken with Dayan previously as we don't do the double balloons but referring physician is fine with just a single balloon. [facility] double balloon [facility] be done so disregard this referral.[facility]06-12-20[facility] NoteCalled and spoke with Dayan at [facility] regarding a referral that was sent on August 25 for this patient. In reading the notes she is being referred for a double balloon enteroscopy and our physicians only do single balloon's. She will check with Dr. Ace to see how he would like to proceed and let me know.[facility]03-07-2024 Note [id number] 05-[facility] Hospital Discharge instructions Patient Education 05/22/2023 08:58:47 Colonoscopy, Care After Surgery Layla (CUSTOM) Colonoscopy Care After Surgery Please read the instructions outlined below and refer to this sheet in the next few weeks. These discharge instructions provide you with general information on [facility] Your doctor may also give you [...] unsweetened, w/added ascorbic acid 1 cup 0.5 [place] 1 cup 0.7 Vegetables Cooked Green beans 1 cup 4.0 Carrots 1/2 cup sliced 2.3 Peas 1 cup 8.8 Potato (baked, with skin) 1 medium potato 3.8 Raw [place] (with peel) 1 cucumber 1.5 Lettuce 1 [...] 8.7 Peanuts 1/2 cup 7.9 Chart from [employer] 2013. SEEK IMMEDIATE MEDICAL CARE IF: You [...] Nutrient Database for Standard Reference. Available at http://www.Skycheckin.usda.gov/fnic/foodcomp/search/. Information adapted from: [employer] Patient Information 2009 Court[employer]. Vi[employer]ar 2013 http://www.RE2/contents/adqnxdmuwati-gxbfacj-vvloaw-the-basics 05/22/2023 08:58:41 Hemorrhoids, Gaga-sp-Nnqm Hemorrhoids Hemorrhoids are swollen veins that may [...] 3 times a day. General instructions Take hgla-daw-dblfvmw and prescription medicines only as told by [...] provider. Document Revised: 09/13/2021 Document Reviewed: 09/13/2021 TRANSCORP Patient Education 2022 Vericant. 05/22/2023 08:58:37 Endoscopy, Care After Procedure [facility] Endoscopy Care After Procedure Please read the instructions outlined below and refer to this sheet in the next few weeks. These discharge instructions provide you with general information on caring [facility] Your doctor may also give you [...] blood. Document Released: 10/16/2004 Document Re-Released: 08/26/2006 App[employer]ink Patient Information Rudder. 05/22/2023 08:58:29 Hiatal Hernia Hiatal Hernia A [...] reduce GERD symptoms. Medicines. These may include: ?Bwyk-gij-zbyjhvn antacids. ?Medicines that make your stomach empty [...] may include: ?Fatty foods, like fried foods. ?Porum fruits, like oranges or lemon. ?Other foods [...] Do not drink alcohol. General instructions Take unfq-qyq-rjbgyfd and prescription medicines only as told by [...] provider. Document Revised: 05/01/2022 Document Reviewed: 05/01/2022 TRANSCORP Patient Education 2022 Vericant. Follow Up Care 05/14/2023 13:37:06 With:Tho VILLEGAS, RUBA Villanueva, [facility] Address: When: Unknown Comments:Call for any problems. The office will reach out in about one week from procedure date. [facility]02-05-2024 Evaluation note* Encounter Date Diagnosis Assessment Notes Treatment Notes Treatment Clinical Notes Apr, Moderate persistent asthma witho ut complication (ICD-10 - J45.40) Retroficiency Other 02-02-2024 Evaluation note* Encounter Date Diagnosis Assessment Notes Treatment Notes Treatment Clinical Notes Apr, Moderate persistent asthma with acute exacerbation (ICD-10 - J45.41) Retroficiency Other 01-30-2024 Evaluation note* Encounter Date Diagnosis Assessment Notes Treatment Notes Treatment Clinical Notes Mar, Acute bronchitis due to other sp ecified organisms (ICD-10 - J20.8) Instructed to use Robitussin or Mucinex for cough, saline or Flonase NS for congestion, Tylenol forpain and fever. Initiate broad spectrum antibiotic to cover for CAP. Mar,Moderate persistent asthma with acute exacerbation (ICD-10 - J45.41) Continue triple therapy as well as NIKO as needed. Continue Singulair, Claritin, Flonase. Schedule PFT and referral to Pulmonary Sp. Mar,Iron deficiency anemia secondary to inadequate dietary iron intake (ICD-10 - D50.8)Continue PO Fe. Refer to Hematology for IV Fe therapy. Refer to GI for evaluation and consideration for capsule endoscopy as well as repeat endoscopy. Continue PPI and GERD precautions Mar,rimary hypertension (ICD-10 - I10)This patient is instructed to consume a healthy, low-fat, low-salt diet. They are also encouraged to continue exercise to achieve/maintain a normal BMI. Stopped LUIS ALBERTO w/o resolution of cough Mar,Non-seasonal allergic rhinitis due to other allergic trigger (ICD-10 - J30.89)Continue Claritin, Singulair and Flonase Scheduled to see vending service technician. Mar,Gastroesophageal reflux disease with esophagitis without hemorrhage (ICD-10 - K21.00)Avoid lying flat after eating. Avoid eating 2 hours prior to bedtime. Smaller, frequent meals may be better tolerated.Weight loss if overweight.PPI with any heartburn.Monitor for dysphagia. Retroficiency Other 01-18-2024 Evaluation note* Encounter Date Diagnosis Assessment Notes Treatment Notes Treatment Clinical Notes Mar, Iron deficiency anemia due to ch ronic blood loss (ICD-10 - D50.0) Retroficiency Other 12-22-2023 Evaluation note* Encounter Date Diagnosis Assessment Notes Treatment Notes Treatment Clinical Notes Feb, Iron deficiency anemia due to ch ronic blood loss (ICD-10 - D50.0) Retroficiency Other 12-20-2023 Evaluation note* Encounter Date Diagnosis Assessment Notes Treatment Notes Treatment Clinical Notes Feb, Anemia (ICD-10 - D64.9) Retroficiency Other 12-11-2023 Evaluation note* Encounter Date Diagnosis Assessment Notes Treatment Notes Treatment Clinical Notes Feb, Moderate persistent asthma witho ut complication (ICD-10 - J45.40) Retroficiency Other 12-06-2023 Hospital Discharge instructions Patient Education [...] relieve pelvic muscle tension or spasms. Take styr-itg-xbafpbm and prescription medicines only as told by [...] provider. Document Revised: 07/12/2021 Document Reviewed: 07/12/2021 TRANSCORP Patient Education 2022 Vericant. 02/20/2023 09:44:59 Kegel Exercises Kegel Exercises Kegel [...] provider. Document Revised: 07/13/2021 Document Reviewed: 07/13/2021 TRANSCORP Patient Education 2022 Vericant. Follow Up Care 01/31/2022 08:50:25 With:Dewayne VILLEGAS, Asuncion London, RANDAL, URO Address: [address] [place] [address]- [phone] When: Unknown Comments:3 yr [facility] 12-04-2023 Evaluation note* Encounter Date Diagnosis Assessment Notes Treatment Notes Treatment Clinical Notes Feb, Moderate persistent asthma with acute exacerbation (ICD-10 - J45.41) Holding Breo for trial of Trelegy. Avoid dust, mold, fumes as much as possible. Steroid taper to break cycle of coughing Refer to Microbiology Lab Analyst and Applications Developer when stable Feb,Non-seasonal allergic rhinitis due to other allergic trigger (ICD-10 - J30.89)Continue FLonase NS Add Astepro NS Continue Claritin and Singulair Feb,astroesophageal reflux disease with esophagitis without hemorrhage (ICD-10 - K21.00)Diet instructions: Smaller portions, avoid eating and laying flat, avoid eating or drinking prior to bedtime. Weight loss. Continue PPI Retroficiency Other 11-21-2023 Evaluation note* Encounter Date Diagnosis Assessment Notes Treatment Notes Treatment Clinical Notes Jan, Age-related osteopor osis without current pathological fracture (ICD-10 - M81.0) Jan,Hypercholesteremia (ICD-10 - E78.00) Retroficiency Other 11-14-2023 Evaluation note* Encounter Date Diagnosis Assessment Notes Treatment Notes Treatment Clinical Notes Jan, Menopause (ICD-10 - Z78.0) Retroficiency Other 11-10-2023 Evaluation note* Encounter Date Diagnosis Assessment Notes Treatment Notes Treatment Clinical Notes Jan, Hypercholesteremia (ICD-10 - E78 .00) Retroficiency Other 11-10-2023 Evaluation note* Encounter Date Diagnosis [...] reviewed and amended by provider signed below. Jan,rimary hypertension (ICD-10 - I10)This patient is instructed to consume a healthy, low-fat, low-salt diet. They are also encouraged to continue exercise to achieve/maintain a normal BMI. Jan,Seasonal allergic rhinitis due to pollen (ICD-10 - J30.1)Continue medical treatment Instructed on avoidance of dust, smoke and allergens. 10 Nov, 2023Mild persistent asthma, uncomplicated (ICD-10 - J45.30)Stable symptoms w/ intermittent use of NIKO. ER visit last month for AE but much improved. Offered PFT and referral to Applications Developer. Jan,utoimmune thyroiditis (ICD-10 - E06.3)Clinically euthyroid, TSH yearly Jan,Other specified hypothyroidism (ICD-10 - E03.8) Jan,Vitamin D deficiency (ICD-10 - E55.9)Healthy diet, continue supplements. Check Vit D level Jan,Screening mammogram for breast cancer (ICD-10 - Z12.31)Instructed patient on monthly SBE and yearly mammograms. Jan,High risk medication use (ICD-10 - Z79.899)Check labs: ALT, CBC Jan,Hypercholesteremia (ICD-10 - E78.00)Instructed on diet and exercise with continued statin therapy.Discussed the beneficial effects of lowering cholesterol in reducing the risk for cerebrovascular and cardiovascular disease. Jan,ge-related osteoporosis without current pathological fracture (ICD- 10 - M81.0) Jan,astroesophageal reflux disease with esophagitis without hemorrhage (ICD-10 - K21.00) Jan,AD (generalized anxiety disorder) (ICD-10 - F41.1) Retroficiency Other 09-27-2023 Evaluation note* Encounter Date Diagnosis Assessment Notes Treatment Notes Treatment Clinical Notes Nov, Moderate persistent asthma with acute exacerbation (ICD-10 - J45.41) Reviewed medication - continue LABA/ICS and NIKO - continue Singulair, Claritin and Flonase Suggested short course of Steroids and antibiotics. Discussed use of LAMA in combination of what she is presently taking CXR if no improvement Retroficiency Other 08-23-2023 Evaluation note* Encounter Date Diagnosis Assessment Notes Treatment Notes Treatment Clinical Notes Oct, Mild persistent asthma, uncompli cated (ICD-10 - J45.30) Retroficiency Other 08-17-2023 Evaluation note* Encounter Date Diagnosis [...] understanding and is agreeable to treatment plan Retroficiency Other 04-12-2023 NotePROCEDURE: XR FOOT RT MIN [...] authenticated by: JEROME ESPINOSA Date: 2022-06-27 15:36[id number] NotePROCEDURE: XR FOOT RT MIN 3 VIEWS [...] Electronically authenticated by: CAMPOS ERAZO Date: 2022-05-17 16:27[facility] [id number] NotePROCEDURE: XR FOOT RT MIN 3 VIEWS [...] Electronically authenticated by: JEROME ESPINOSA Date: 2022-04-26 09:37[facility]01-19-2023 NotePROCEDURE: XR FOOT RT MIN 3 [...] Electronically authenticated by: JEROME ESPINOSA Date: 2022-04-05 14:43[facility]01-19-2023 NotePROCEDURE: XR FOOT RT 2V HISTORY: [...] Electronically authenticated by: JEROME ESPINOSA Date: 2022-04-05 14:41[facility]01-11-2023 NotePROCEDURE: XR FOOT RT MIN 3 [...] Electronically authenticated by: JEROME ESPINOSA Date: 2022-03-28 10:17[facility]12-26-2022 NotePROCEDURE: XR FOOT RT MIN 3 [...] Electronically authenticated by: JEROME ESPINOSA Date: 2022-03-12 09:46[facility]12-19-2022 Evaluation note* Encounter Date Diagnosis Assessment Notes Treatment Notes Treatment Clinical Notes Feb, Acute pain of left shoulder (ICD -10 - M25.512) Feb,Tear of left supraspinatus tendon (ICD-10 - M75.102)A 1/1cc marcaine / kenalog cortisone injection was performed into the subacromial space under sterile technique. Patient tolerated the injection well with no adverse reaction. Retroficiency Other 09-16-2022 Hospital Discharge instructions Patient Education [...] nerve stimulation). For women, using a medical dir to prevent urine leaks. This is a [...] right after experiencing incontinence. General instructions Take jhgz-htc-bnlvsfz and prescription medicines only as told by [...] 04/11/2005 Document Revised: 03/14/2018 Document Reviewed: 06/13/2017 TRANSCORP Patient Education 2020 Vericant. Follow Up Care 10/20/2021 08:23:44 With:Asuncion Buchanan MD, URL, URO Address: When: Unknown [facility] 2022 Evaluation note* Encounter Date Diagnosis Assessment Notes Treatment Notes Treatment Clinical Notes Sep, Acute pain of left shoulder (ICD -10 - M25.512) Sep,Tear of left supraspinatus tendon (ICD-10 - M75.102)This appears to be pain secondary to a [...] the injection well with no adverse reaction. Retroficiency Other Evaluation + Plan note Future Appointments Appointment Date:01/31/2022 08:00:00 AM Scheduled Provider:Asuncion Buchanan MD Location:[facility] Appointment Type:URO Office Visit [facility] Evaluation + Plan note Future Appointments Appointment Date:02/19/2024 08:00:00 AM Scheduled Provider:Asuncion Buchanan MD Location:[facility] Appointment Type:URO Office Visit [facility] evaluation + Plan note Future Appointments Appointment Date:05/22/2023 08:00:00 AM Scheduled Provider: Location:[facility] Appointment Type:Surgery FT Appointment Date:02/19/2024 08:00:00 AM Scheduled Provider:Asuncion Buchanan MD Location:[facility] Appointment Type:URO Office Visit [facility] Evaluation + Plan note Future Appointments Appointment Date:07/23/2023 08:00:00 AM Scheduled Provider[facility] Sinus/Orbits/Maxillofacial (FT) Appointment Date:02/19/2024 08:00:00 AM Scheduled Provider:Asuncion Buchanan MD Location:[facility] Appointment Type:URO Office Visit Future Scheduled Tests Radiology* XR Abdomen 1 View 07/04/23 * CT Maxillofacial w/o Contrast 07/23/23 [facility] evaluation + Plan note Future Appointments Appointment Date:07/23/2023 08:00:00 AM Scheduled Provider: [facility] Type:CT Sinus/Orbits/Maxillofacial (FT) Appointment Date:02/19/2024 08:00:00 AM Scheduled Provider:Asuncion Buchanan MD Location:[facility] Appointment Type:URO Office Visit Future Scheduled Tests Radiology* CT Maxillofacial w/o Contrast [facility]23 [facility] Future App[facility]ments Appointment Date:07/23/2023 08:00:00 AM Scheduled Provider: [facility] Type:CT Sinus/Orbits/Maxillofacial (FT) Appointment Date:08/15/2023 08:15:00 AM Scheduled Provider:Del Nettles MD [facility] Appointment Type:BAD Follow Up Appointment Date:02/19/2024 08:00:00 AM Scheduled Provider:Asuncion Buchanan MD Location:[facility] Appointment Type:URO Office Visit Future Scheduled Tests Radiology* CT Maxillofacial w/o Contrast 07/23/23 [facility] Evaluation + Plan note Future Appointments Appointment Date:08/15/2023 08:15:00 AM Scheduled Provider:Del Nettles MD [place] Appointment Type:BAD Follow Up Appointment Date:02/19/2024 08:00:00 AM Scheduled Provider:Asuncion Buchanan MD Location:[facility] Appointment Type:URO [facility] Future Appointments Appointment Date:02/05/2024 10:45:00 AM Scheduled Provider:Asuncion Buchanan MD Location:[facility] Appointment Type:URO Office Visit [facility] evaluation + Plan note Future Appointments Appointment Date:02/05/2024 10:45:00 AM Scheduled Provider:Asuncion Buchanan MD Location:[facility] Appointment Type:URO Office Visit Diagnostic Tests Pending * Urine Culture 12/27/23 [facility] evaluation + Plan note Future Appointments Appointment Date:02/17/2024 09:00:00 AM Scheduled Provider: Location:[facility] Appointment Type:Urology CALL PAT FT Appointment Date:02/24/2024 09:30:00 AM Scheduled Provider: Location:[facility] Appointment Type:Urology FT [facility] evaluation + Plan note Future Appointments Appointment Date:04/07/2024 09:30:00 AM Scheduled Provider: Location:[facility] Appointment Type:Surgery FT Appointment Date:04/22/2024 10:45:00 AM Scheduled Provider:Asuncion Buchanan MD Location:[facility] Appointment Type:URO Office Visit Diagnostic Tests Pending * Urine Culture 03/24/24 [facility] Evaluation + Plan note Future Appointments Appointment Date:04/22/2024 10:45:00 AM Scheduled Provider:Asuncion Buchanan MD Location:[facility] Appointment Type:URO Office Visit [facility] evaluation + Plan note Future Appointments Appointment Date:05/20/2024 07:30:00 AM Scheduled Provider: Location:[facility] Services Appointment Type:Surgical PAT FT Appointment Date:06/02/2024 09:30:00 AM Scheduled Provider: Location:[facility] Services Appointment Type:Surgery FT [facility] evaluation + Plan note Future Appointments Appointment Date:06/02/2024 09:30:00 AM Scheduled Provider: Location:[facility] Appointment Type:Surgery FT Diagnostic Tests Pending * Urine Culture 05/20/24 [facility] Evaluation + Plan note Future Appointments Appointment Date:11/05/2024 08:15:00 AM Scheduled Provider:Del Nettles MD [place] Appointment Type:BADH Follow Up [facility] Evaluation noteNo InformationNort [employer] Other Evaluation noteNo assessment information [facility] Work Phone: Evaluation note* Diagnosis Other partial intestinal obstruction (HCC)- [facility] Diagnosis Other partial intestinal obstruction (HCC) [facility]* Diagnosis Iron deficiency anemia due to chronic blood loss- Primary Iron deficiency anemia secondary to blood loss (chronic) Abnormal finding on GI tract imaging Nonspecific (abnormal) findings on radiological and other examination of gastrointestinal tract [facility]* Diagnosis Chronic maxillary sinusitis- Primary Chronic pansinusitis Other chronic [facility]itis [facility] Diagnosis Keratoconjunctivitis sicca of both eyes not specified as Sjogren's- Primary Blepharitis of upper and lower eyelids of both eyes, unspecified type Bilateral posterior capsular opacification Unspecified after-cataract [facility] Diagnosis Chronic maxillary sinusitis- Primary Chronic ethmoiditis Chronic ethmoidal sinusitis Chronic cough Cough Asthma, unspecified asthma severity, unspecified whether complicated, unspecified whether persistent ([facility]) documented in this encounter [place] Work Phone: Evaluation note* Diagnosis Encounter for gynecological examination without abnormal finding Screening for malignant neoplasm of cervix Screening for malignant neoplasm of the cervix Encounter for screening mammogram for breast cancer Lichen sclerosus et atrophicus Circumscribed scleroderma Screening for osteoporosis Special screening for osteoporosis Postmenopausal status, age-related documented in this encounter [facility]* Diagnosis Chronic maxillary sinusitis- Primary documented in this encounter [facility]* Diagnosis Iron deficiency anemia due to chronic blood loss Iron deficiency anemia secondary to blood loss (chronic) Abnormal finding on GI tract imaging Nonspecific (abnormal) findings on radiological and other examination of gastrointestinal tract [facility] Diagnosis 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 [facility] Diagnosis Onset Date Resolution Status Admit Date Osteoporosis acuteOctober 2024 9:42am [facility] Work Phone: Evaluation note* Diagnosis Peripheral eosinophilia- Primary Chronic maxillary sinusitis Cough variant asthma (HCC) Cough variant asthma documented in this encounter [facility] HealthcareHistory general Narrative - Reported* Type Description Date Medical History high cholestrol Medical Historygraves diseaseMedical HistoryasthmaMedical HistoryulcerMedical Historymigranes and tension headachesMedical HistoryarthritisMedical History osteoporosisSurgical Historyd and cSurgical Historyc sectionsSurgical History torn right wrist cartligeSurgical Historynuclear med to kill thyroidSurgical Historycolonoscopy and egdSurgical Historygall bladder removedSurgical History tubal ligationSurgical Historyrotator cuff and bicep [id number]/2019 Hospitalization Historysee aboveHospitalization Historyblood transfusion from bleeding ulcer Retroficiency Other History general Narrative - Reported* Type Description Date Medical History high cholestrol Medical Historygraves diseaseMedical HistoryasthmaMedical HistoryulcerMedical Historymigranes and tension headachesMedical HistoryarthritisMedical History osteoporosisSurgical Historyd and cSurgical Historyc sectionsSurgical History torn right wrist cartligeSurgical Historynuclear med to kill thyroidSurgical Historycolonoscopy and egdSurgical Historygall bladder removedSurgical History tubal ligationSurgical Historyrotator cuff and bicep /2019Surgical HistoryORIF right 5th MT fracture04/06/22Hospitalization Historysee above Hospitalization Historyblood transfusion from bleeding ulcer Retroficiency Other History general Narrative - Reported* Type Description Date Medical History high cholestrol Medical Historygraves diseaseMedical HistoryasthmaMedical HistoryulcerMedical Historymigranes and tension headachesMedical HistoryarthritisMedical History osteoporosisMedical HistoryRight metatarsal fracture - 03/2022Surgical Historyd and cSurgical Historyc sectionsSurgical Historytorn right wrist cartligeSurgical Historynuclear med to kill thyroidSurgical Historycolonoscopy and egdSurgical Historygall bladder removedSurgical Historytubal ligationSurgical Historyrotator cuff and bicep cufogr94/2019Surgical HistoryORIF right 5th MT fracture04/06/22 Hospitalization Historysee aboveHospitalization Historyblood transfusion from bleeding ulcer Retroficiency Other History general Narrative - Reported* Type Description Date Medical History high cholestrol Medical Historygraves diseaseMedical HistoryasthmaMedical HistoryulcerMedical Historymigranes and tension headachesMedical HistoryarthritisMedical History osteoporosisMedical HistoryRight metatarsal fracture - 03/2022Surgical Historyd and cSurgical Historyc sectionsSurgical Historytorn right wrist cartligeSurgical Historynuclear med to kill thyroidSurgical Historycolonoscopy and egdSurgical Historygall bladder removedSurgical Historytubal ligationSurgical Historyrotator cuff and bicep [id number]/2019Surgical HistoryORIF right 5th MT fracture04/06/22 Surgical Historycataract b/lHospitalization Historysee aboveHospitalization Historyblood transfusion from bleeding ulcer Retroficiency Other History general Narrative - Reported* Type Description Date Medical History high cholestrol Medical Historygraves diseaseMedical HistoryasthmaMedical HistoryulcerMedical Historymigranes and tension headachesMedical HistoryarthritisMedical History osteoporosisMedical HistoryRight metatarsal fracture - 03/2022Surgical Historyd and cSurgical Historyc sectionsSurgical Historytorn right wrist cartligeSurgical Historynuclear med to kill thyroidSurgical HistoryEGD, [id number] Historygall bladder removedSurgical Historytubal ligationSurgical Historyrotator cuff and bicep datuky31/2019Surgical HistoryORIF right 5th MT fracture04/06/22 Surgical Historycataract b/lHospitalization Historysee aboveHospitalization Historyblood transfusion from bleeding ulcer Retroficiency Other Hospital course Narrative No data available for this section [facility] Hospital Discharge instructions No data available for this section [facility] Progress note No data available for this section [facility] Reason for referral (narrative)* Reason *FU 04/23 Referral for iron deficiency anemia. Diagnosis 1 Iron deficiency anem ia secondary to inadequate dietary iron intake (D50.8) Referral Organization [facility] kenny Referring Provider First Name Andrea Referring Provider Last Name [place] Referring Provider Specialty Internal Me dicine Referred Organization [facility] Referred Provider CHRISSY HECTOR Referred Address [address] [place] [id number] Referred Provider Specialty Hematology Referral Priority Routine [...] >received today, attachments made, waiting for notes lorene locked Alla Castillo 04/16/2023 03:12:51 PM >notes are locked, referral faxed Clinical NotesInclude labs results p: [id number] f: [id number] Reason Referral for pe rsistent cough and wheezing Diagnosis 1 Moderate persistent asthma with acute exacerbation (J45.41) Referral Organization [facility] kenny Referring Provider First Name Andrea Referring Provider Last Name [place] Referring Provider Specialty Internal Me dicine Referred Organization [facility] Referred Provider Edouard Espinosa Referred Address [address], [place],[address] Referred Provider Specialty Pulmonary Aline cantor Referral Priority Routine General Notes Patient w/ allergic rhinitis and asthma w/ deterioration of her symptoms over the past year. Her medications have been maximized and alternative etiology for cough and wheezing addressed. She has been referred to an Microbiology Lab Analyst for evaluation and scheduled for a PFT. Alla Castillo 04/16/2023 10:39:47 AM >received today, waiting for notes to be locked, and for CXR LABS AND PFT TO BE COMPLETED Shannan Weinberg 04/18/2023 09:54:53 AM > Patient is [facility] Dr [facility] NotesInclude CXR, labs and PFT when completed Reason *04/24 Referral for opinion on further testing for iron deficiency anemia Diagnosis 1 Iron deficiency anem ia secondary to inadequate dietary iron intake (D50.8) Referral Organization [facility] [place] [facility]x Referring Provider First Name Andrea Referring Provider Last Name [place] Referring Provider Specialty Internal Me dicine Referred Organization [facility] Referred Address [address] [facility] [address],[place], [place],[address] Referred Provider Specialty Gastroentero logy Referral Priority [...] today, multiple attachments made, notes locked, referral faxedClinical Notesf: [id number] Retroficiency Other Reason for referral (narrative)* Reason *04/23 Referral for iron deficiency anemia. Diagnosis 1 Iron deficiency anem ia secondary to inadequate dietary iron intake (D50.8) Referral Organization [facility] [place] [facility]x Referring Provider First Name Andrea Referring Provider Last Name Ball Referring Provider Specialty Internal Me dicine Referred Organization [facility] Referred Provider CHRISSY HECTOR Referred Address [address], [place],[address] Referred Provider Specialty Hematology Referral Priority Routine [...] >received today, attachments made, waiting for notes lorene locked Alla Castillo 04/16/2023 03:12:51 PM >notes are locked, referral faxed Clinical NotesInclude labs results p: [id number] f: [id number] Reason Referral for pe rsistent cough and wheezing Diagnosis 1 Moderate persistent asthma with acute exacerbation (J45.41) Referral Organization [facility] [place] [facility] Referring Provider First Name Andrea Referring Provider Last Name [place] Referring Provider Specialty Internal Me dicine Referred Organization [facility] Referred Provider JesúsEdouard Referred Address [address], [place],[address] Referred Provider Specialty Pulmonary Di seases Referral Priority Routine General Notes Patient w/ allergic rhinitis and asthma w/ deterioration of her symptoms over the past year. Her medications have been maximized and alternative etiology for cough and wheezing addressed. She has been referred to an Microbiology Lab Analyst for evaluation and scheduled for a PFT. Alla Castillo 04/16/2023 10:39:47 AM >received today, waiting for notes to be locked, and for CXR LABS AND PFT TO BE COMPLETEDClinical NotesInclude CXR, labs and PFT when completed Reason Referral for opinion on further testing for iron deficiency anemia Diagnosis 1 Iron deficiency anem ia secondary to inadequate dietary iron intake (D50.8) Referral Organization [facility] [place] [employer] Ladonna cox Referring Provider First Name Andrea Referring Provider Last Name [place] Referring Provider Specialty Internal Me dicine Referred Organization [facility] Referred Address [address],[place], [place],[address] Referred Provider Specialty Gastroentero logy Referral Priority [...] to Hematology for IV iron and evaluation. Retroficiency Other Reason for referral (narrative)* Diagnostic Procedure Only (Routine) - ClosedSpecialtyDiagnoses / ProceduresReferred By Contact Referred To ContactXR IMAGING Diagnoses Other partial intestinal obstruction (HCC) Procedures XR SMALL BOWEL SERIES RADIOLOGIC EXAM SMALL INT SINGLE CONTRAST STUDY Kasey Fallon MD [facility] [address] [place] [address] Xr Imaging [place] [address] [facility]Status[facility] DateExpiration DateVisits RequestedVisits [id number] Auto-Generated Referral [facility] for referral (narrative)* Outpatient Procedure (Routine) - New RequestSpecialtyDiagnoses / ProceduresReferred By ContactReferred To ContactCLARKS [facility] [place] Diagnoses Iron deficiency anemia due to chronic blood loss Abnormal finding on GI tract imaging Procedures ENTEROSCOPY ENTEROSC >2ND PRTN W/ILEUM W/BX SINGLE/MULTIPLE UNLISTED PROCEDURE SMALL INTESTINE Kasey Fallon MD [facility] [address] [place] [address] [facility] [place] [address] [place] [address] Referral IDStatusReasonStcookeville DateExpiration DateVisits RequestedVisits [id number] Request Auto-Generated Referral [facility] for referral (narrative)No reason for referral information availablePromedica Memorial Hospital Work Phone: Reason for visit Narrative* Outpatient Procedure (Routine) - ClosedSpecialtyDiagnoses / ProceduresReferred By ContactReferred To [facility] Diagnoses Iron deficiency anemia due to chronic blood loss Abnormal finding on GI tract imaging Procedures ENTEROSCOPY ENTEROSC >2ND PRTN W/ILEUM W/BX SINGLE/MULTIPLE UNLISTED PROCEDURE SMALL INTESTINE Kasey Fallon MD [address] [address] Phone: tel: fax: [facility] [address] [place] [address] Referral IDStatusReasonStart DateExpiration DateVisits RequestedVisits [id number] Auto-Generated Referral [facility] Summary Purpose Family History Relationship Condition Age at Onset Recorded Date/T margaret Not Specified Malignant neoplasm of lung Unknown Malignant neoplasm of pancreasUnknownDiabetes mellitusUnknownfatherPneumonia UnknownChronic headache disorderUnknownsisterMalignant neoplasm of breastUnknown brotherAcute poliomyelitisUnknownbrotherMyocardial infarctionUnknownbrother Malignant neoplasm of colonUnknown Relationship Condition Age at Onset Recorded Date/T margaret Not Specified Malignant neoplasm of lung Unknown Malignant neoplasm of pancreasUnknownDiabetes mellitusUnknownfatherPneumonia UnknownChronic headache disorderUnknownsisterMalignant neoplasm of breastUnknown brotherAcute poliomyelitisUnknownbrotherMyocardial infarctionUnknownbrother Malignant neoplasm of colonUnknownfatherDeceasedUnknownMalignant neoplasmUnknown Not SpecifiedDiabetes mellitusUnknownDeceasedUnknown Relationship Condition Age at Onset Recorded Date/T margaret mother Malignant neoplasm of lung Unknown Malignant neoplasm of pancreasUnknownDiabetes mellitusUnknownfatherPneumonia UnknownChronic headache disorderUnknownsisterMalignant neoplasm of breastUnknown brotherAcute poliomyelitisUnknownbrotherMyocardial infarctionUnknownbrother Malignant neoplasm of colonUnknownfatherDeceasedUnknownMalignant neoplasmUnknown motherDiabetes mellitusUnknownDeceasedUnknown Advance Directives Advance Directive Response Recorded Date/ [...] 22, 2024 9: 42am Reason for Referral SpecialtyDiagnoses / ProceduresReferred By ContactReferred To ContactCT IMAGING Diagnoses Other partial intestinal obstruction (HCC) Procedures CT ENTEROGRAPHY W IVCON CT ABD & PELVIS W/CONTRAST Kasey Fallon MD [facility] [address] [place] [address] [address] [address] [facility] [place] [address] Referral IDStatusReasonStart DateExpiration DateVisits RequestedVisits [id number] Request Auto-Generated Referral Additional Source Comments REASON FOR VISIT (unrecogniz ed section and content) ReasonCommentsConsultReasonCommentsPatient QuestionReasonCommentshelp rescheduling GI testReasonCommentsRadio GI Main [id number] / ProceduresReferred By ContactReferred To ContactXR IMAGING Diagnoses Other partial intestinal obstruction (HCC) Procedures XR SMALL BOWEL SERIES RADIOLOGIC EXAM SMALL INT SINGLE CONTRAST STUDY Kasey Fallon MD [facility] [address] [place] [address] [place] [address] Referral IDStatusReerickaStart DateExpiration DateVisits RequestedVisits [id number] Auto-Generated Referral [id number] PatientDouble balloonReasonComments Follow-upPt here for follow up apt with no new complaints surgeries or hospital staysReasonCommentsEye ExamReasonCommentsNew Patient VisitReasonComments Gynecologic ExamPt states has IBS. Pt states she wears pad for bladder leakage,Pt states recently had bladder biopsy. Pt c/o vulvar irritation/redness. Denies vaginal bleeding/spotting.ReasonCommentsFollow-upPt here for follow up on sinusitis and cough. Pt states she's been doing well. No refills needed. Pt did have a bladder biopsy a few weeks ago which turned up negative.ReasonComments Education Of Patient/familyPatient QuestionMessage sent to referring physician regarding a substitute for GatoradeReasonOnset [id number]/14/2025 ReasonCommentsFollow-upApril 2024 Colonoscopy, July 2024 bladder bulking surgery. Pt states she has a lot of drainage whichis causing her to cough. INFORMATION SOURCE (unrecogn ized section and content) DATE CREATED AUTHOR 10/11/2021 [facility] DATE CREATED AUTHOR AUTHOR'S ORGANIZ ATION 07/02/2022 [facility] DATE CREATED AUTHOR AUTHOR'S ORGANIZ ATION 09/07/2023 [facility] DATE CREATED AUTHOR AUTHOR'S ORGANIZ ATION 09/15/2023 [facility] DATE CREATED AUTHOR AUTHOR'S ORGANIZ ATION 10/12/2023 [facility] DATE CREATED AUTHOR AUTHOR'S ORGANIZ ATION 11/10/2023 [facility] DATE CREATED AUTHOR AUTHOR'S ORGANIZ ATION 01/01/2024 [facility] DATE CREATED AUTHOR AUTHOR'S ORGANIZ ATION 02/08/2024 [facility] DATE CREATED AUTHOR AUTHOR'S ORGANIZ ATION 02/27/2024 [facility] DATE CREATED AUTHOR AUTHOR'S ORGANIZ ATION 03/30/2024 [facility] DATE CREATED AUTHOR AUTHOR'S ORGANIZ ATION 03/31/2024 [facility] DATE CREATED AUTHOR AUTHOR'S ORGANIZ ATION 04/10/2024 [facility] DATE CREATED AUTHOR AUTHOR'S ORGANIZ ATION 04/19/2024 [facility] DATE CREATED AUTHOR AUTHOR'S ORGANIZ ATION 04/24/2024 [facility] DATE CREATED AUTHOR AUTHOR'S ORGANIZ ATION 05/21/2024 [facility] DATE CREATED AUTHOR AUTHOR'S ORGANIZ ATION 05/22/2024 [facility] DATE CREATED AUTHOR AUTHOR'S ORGANIZ ATION 05/24/2024 [facility] DATE CREATED AUTHOR AUTHOR'S ORGANIZ ATION 07/23/2024 [facility] DATE CREATED AUTHOR AUTHOR'S ORGANIZ ATION 12/18/2024 [facility] DATE CREATED AUTHOR AUTHOR'S ORGANIZ ATION 12/29/2024 [facility] EPIC Care Teams (unrecognized sec tion and content) Team Status: Active Member Role Status Dates Andrea Golden DO Primary Care Provider Active Team Status: Active Member Role Status Dates Andrea Golden DO Primary Care Provider Active Start: May 23, 2023 Lisa Jenkins ProviderActiveStart: May 23, 2023 Team Status: Active Member Role Status Dates Andrea Golden DO Primary Care Provider Active Start: May 23, 2023 Parish Rojo ProviderActiveStart: May 23, 2023 Team Status: Inactive Member [...] Start: August 20, 2023 End: August 20, 2023Belle Becerra ProviderActiveStart: August 20, 2023 End: August 20, 2023 Team Status: Inactive Member Role Status Dates Espinoza Ruiz MD Attending Provider Active Team MemberRelationshipSpecialtyStart DateEnd Date Andrea Goldne MD [address] [place] [address] PCP - GeneralInternal Medicine08/27/22 Team Status: Inactive Member Role Status Dates Andrea Golden DO Attending Provider Active Sta rt: April 16, 2023 End: April 16, 2023Team MemberRelationshipSpecialtyStart DateEnd Date Andrea Golden DO [address] [place] [address] PCP - GeneralInternal Hqbatstj03/11/24 Jones Ace MD [address] [place] [address] Internal Cabgmgyx32/11/24 Chrissy Hector MD [address] [id number] Hematology/Jvbksjrv00/11/24Team MemberRelationshipSpecialtyStart DateEnd Date Andrea Golden MD PCP - GeneralInternal Medicine08/27/22Team MemberRelationshipSpecialtyStart Date End Date Andrea Golden MD PCP - GeneralInternal Medicine08/27/22 Team Status: Active Member Role Status Dates Andrea Golden DO Primary Care Provider Active Start: November 22, 2023 Chrissy Hector MDAttnico ProviderActiveStart: November 22, 2023 Team Status: Active Member Role Status Dates Andrea Golden DO Primary Care Provide r, Attending Provider Active Start: January 29, 2024 Team Status: Inactive Member Role Status Dates Andrea Golden DO Primary Care Provide r, Attending Provider Active Start: February 05, 2024 End: February 05, 2024Team MemberRelationshipSpecialtyStart DateEnd Date Andrea Golden MD PCP - GeneralInternal Medicine08/27/22Team MemberRelationshipSpecialtyStart Date End Date Andrea Golden MD PCP - GeneralInternal Medicine08/27/22Team MemberRelationshipSpecialtyStart Date End Date Andrea Golden MD PCP - GeneralInternal Medicine08/27/22Team MemberRelationshipSpecialtyStart Date End Date Andrea Golden MD PCP - GeneralInternal Medicine08/27/22Team MemberRelationshipSpecialtyStart Date End Date Andrea Golden MD PCP - GeneralInternal Medicine08/27/22Team MemberRelationshipSpecialtyStart Date End Date Andrea Golden DO [address] [place] [address] PCP - GeneralInternal Dxjofnpc52/11/24 Jones Ace MD [address] [place] [address] Internal Fscuxcpw56/11/24 Chrissy Hector MD [address] [place] [address] Hematology/Pxztondq02/11/24Team MemberRelationshipSpecialtyStart DateEnd Date Andrea Golden DO [address] [place] [address] PCP - GeneralInternal Mffgzaxs25/11/24 Jones Ace MD [address] [place] [address] Internal Vfcdvdgl76/11/24 Chrissy Hector MD [address] [place] [address] Hematology/Foidrczj95/11/24Team MemberRelationshipSpecialtyStart DateEnd Date Andrea Golden DO [address] [place] [address] PCP - GeneralInternal Exhakheg70/11/24 Jones Ace MD [address] [place] [address] Internal Owhapicd86/11/24 Chrissy Hector MD [address] [place] [address] Hematology/Qqsaaxwk26/11/24Team MemberRelationshipSpecialtyStart DateEnd Date Andrea Golden DO [address] [place] [address] PCP - GeneralInternal Oawffqjb82/11/24 Jones Ace MD [address] [place] [address] Internal Anqreqqf27/11/24 Chrissy Hector MD [address] [place] [address] Hematology/Kelgntdq22/11/24Team MemberRelationshipSpecialtyStart DateEnd Date Andrea Golden DO [address] [place] [address] PCP - GeneralInternal Qwysclgo59/11/24 Jones Ace MD [address] [place] [address] Internal Ypzkxuub96/11/24 Chrissy Hector MD [address] [place] [address] Hematology/Goqgllxu64/11/24Team MemberRelationshipSpecialtyStart DateEnd Date Andrea Golden DO [address] [place] [address] PCP - GeneralInternal Ytjdarnf72/11/24 Jones Ace MD [address] [place] [address] Internal Nwbvobrz87/11/24 Chrissy Hector MD [address] [place] [address] Hematology/Hcryeoce28/11/24Team MemberRelationshipSpecialtyStart DateEnd Date Andrea Golden DO PCP - GeneralInternal Medicine08/27/22 Team Status: Active Member Role Status Dates Andrea Golden DO Primary Care Provider Active Start: October 02, 2024 Abe Mojica , Attending ProviderActiveStart: October 02, 2024 Team Status: Inactive Member Role Status Dates Andrea Golden DO Primary Care Provider Active Start: December 22, 2024 End: December 22shahramkrystal Golden DOAttnico ProviderActiveStart: December 22, 2024 End: December 22, 2024Team MemberRelationshipSpecialtyStart DateEnd Date Andrea Golden DO PCP - GeneralInternal Medicine08/27/22Team MemberRelationshipSpecialtyStart Date End Date Andrea Golden DO PCP - GeneralInternal Medicine08/27/22Team MemberRelationshipSpecialtyStart Date End Date Andrea Golden DO PCP - GeneralInternal Medicine08/27/22 Goals (unrecognized section and content) Goals may be documented in a n alternate section Source Comments (unrecognize d section and content) In the event this informatio n is protected by the Federal Confidentiality of Alcohol and Drug Abuse Patient Records regulations: The Federal rules restrict any use of the information to criminally investigate or prosecute any alcohol or drug abuse patient.[facility] the event this information is protected by the Federal Confidentiality of Alcohol and Drug Abuse Patient Records regulations: The Federal rules restrict any use of the information to criminally investigate or prosecute any alcohol or drug abuse patient.[facility] HospitalIn the event this information is protected by the Federal Confidentiality of Alcohol and Drug Abuse Patient Records regulations: The Federal rules restrict any use of the information to criminally investigate or prosecute any alcohol or drug abuse patient.[facility] HospitalIn the event this information is protected by the Federal Confidentiality of Alcohol and Drug Abuse Patient Records regulations: The Federal rules restrict any use of the information to criminally investigate or prosecute any alcohol or drug abuse patient.[facility] HospitalIn the event this information is protected by the Federal Confidentiality of Alcohol and Drug Abuse Patient Records regulations: The Federal rules restrict any use of the information to criminally investigate or prosecute any alcohol or drug abuse patient.[facility] HospitalIn the event this information is protected by the Federal Confidentiality of Alcohol and Drug Abuse Patient Records regulations: The Federal rules restrict any use of the information to criminally investigate or prosecute any alcohol or drug abuse patient.[facility] HospitalIn the event this information is protected by the Federal Confidentiality of Alcohol and Drug Abuse Patient Records regulations: The Federal rules restrict any use of the information to criminally investigate or prosecute any alcohol or drug abuse patient.[facility] HospitalIn the event this information is protected by the Federal Confidentiality of Alcohol and Drug Abuse Patient Records regulations: The Federal rules restrict any use of the information to criminally investigate or prosecute any alcohol or drug abuse patient.[facility] HospitalIn the event this information is protected by the Federal Confidentiality of Alcohol and Drug Abuse Patient Records regulations: The Federal rules restrict any use of the information to criminally investigate or prosecute any alcohol or drug abuse patient.[facility] HospitalIn the event this information is protected by the Federal Confidentiality of Alcohol and Drug Abuse Patient Records regulations: The Federal rules restrict any use of the information to criminally investigate or prosecute any alcohol or drug abuse patient.[facility] HospitalIn the event this information is protected by the Federal Confidentiality of Alcohol and Drug Abuse Patient Records regulations: The Federal rules restrict any use of the information to criminally investigate or prosecute any alcohol or drug abuse patient.[facility] HospitalIn the event this information is protected by the Federal Confidentiality of Alcohol and Drug Abuse Patient Records regulations: The Federal rules restrict any use of the information to criminally investigate or prosecute any alcohol or drug abuse patient.[facility] HospitalIn the event this information is protected by the Federal Confidentiality of Alcohol and Drug Abuse Patient Records regulations: The Federal rules restrict any use of the information to criminally investigate or prosecute any alcohol or drug abuse patient.[facility] FOR RECORDS PERTAINING TO PATIENTS WHO [...] BE BASED ON THE PRIMARY CLINICAL RECORDS. [employer] [facility]. provides no warranty or guarantee of the accuracy or completeness of information in this document.
--- OUTSIDE RECORDS SUMMARY | 2025-01-19 07:24 | XMS_ITS | Clinical Summary ---
Author Organization [facility] Address [address] 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 Name Role Phone Unavailable Primary Care Provider Unavailabl e Allergies Active AllergyReactionsCriticalityNoted HjznCtmkbrhiZwyewtyyteyGlmyrss60/29/2024 Bee Venom Protein (Honey Bee)TqyzkxyqphgCsti81/06/2019Iodinated Contrast Media Anaphylaxis,Hives,Other,Shortness of breath,MhrcymePjro55/22/2008Iodine Anaphylaxis,OyetprrVokv18/30/9236YvepczihsyXjcfHup57/29/2024Sulfa (Sulfonamide Antibiotics)Rash,GbzucesCbc31/22/2008Sulfacetamide Hbk-Nifxzk-NsgcOdmolgy 09/14/2023Wasp SclxoIsyfosgkmwmZbvx20/06/2019 Other Reaction(s): Anaphylaxis Medications MedicationSigDispense QuantityRefillsLast FilledStart DateEnd DateStatus albuterol 90 mcg/actuation inhaler Inhale 2 puffs.Active Fosamax 70 mg tablet 1 tablet 30 minutes before the first food, beverage or medicine of the day with plain water Orally for 30 day(s)Active amLODIPine (Norvasc) 5 mg tablet Daily02/20/2023ctive atorvastatin (Lipitor) 10 mg tablet 1 (one) time each day at the same timeActive aspirin 81 mg EC tablet once every 24 hours.Active betamethasone valerate (Valisone) 0.1 % ointment 09/09/2023ctive cetirizine (ZyrTEC) 10 mg tablet take 1 tablet by mouth once daily if needed for allergiesActive cholecalciferol (Vitamin D-3) 50 mcg (2,000 unit) capsule Take 1 capsule (50 mcg) by mouth once daily.05/18/2022ctive grdajcchkl-ezolueagncmmm-hltg (Fioricet) 50-300-40 mg capsule Take by mouth.Active Breo Ellipta 200-25 mcg/dose inhaler 01/25/2023ctive EpiPen 2-Giovani 0.3 mg/0.3 mL injection syringe as directed InjectionActive estradiol (Estrace) 0.01 % (0.1 mg/gram) vaginal cream See Instructions, 42.5 gm, Refill(s) 0, apply pea sized amount to urethra 2x/wk, [facility], 158, cm, 02/20/23 8:48:00 EST, Height/Length Dosing, 68.5, kg, 02/20/23 8:48:00 EST, Weight Dojlzs2602/20/2023ctive codeine-guaifenesin (Robitussin-AC) 10-100 mg/5 mL syrup Every 6 hours06/21/2023ctive famotidine (Pepcid) 20 mg tablet Take by mouth.12/23/2022ctive iFerex 150 150 mg iron capsule TAKE 1 CAPSULE BY MOUTH EVERY OTHER DAY Oral for 30 Days03/08/2023ctive levothyroxine (Synthroid, Levoxyl) 100 mcg tablet once every 24 hours.Active metroNIDAZOLE (Metrogel) 0.75 % (37.5mg/5 gram) vaginal gel Insert 1 Applicatorful into the vagina.Active montelukast (Singulair) 10 mg tablet Daily05/23/2023ctive Macrobid 100 mg capsule Take 1 capsule (100 mg) by mouth.12/01/2021ctive pantoprazole (ProtoNix) 40 mg EC tablet Take 1 tablet (40 mg) by mouth.Active fluticasone propionate (Xhance) 93 mcg/actuation aerosol breath activated Administer into affected nostril(s).Active Active Problems ProblemNoted DateDiagnosed DateChronic cough11/04/2023 Social History Tobacco UseTypesPacks/DayYears UsedDateSmoking Tobacco: NeverSmokeless Tobacco: Never Tobacco Cessation:Counseling Given: Not Answered Alcohol UseStandard Drinks/WeekCommentsNever0 (1 standard drink = 0.6 oz pure alcohol)PHQ-2AnswerDate RecordedPatient Health Questionnaire-2 [id number] CommentsUnknownSex and Gender InformationValueDate RecordedSex Assigned at BirthNot on fileLegal ViuWdwytn33/26/2022 5:55 PM ESTGender IdentityNot on fileSexual OrientationNot on file Last Filed Vital Signs Vital SignReadingTime TakenCommentsBlood Pressure--Pulse--Deoxutvkhfz83.2 ??C (97.2 ??F)10/08/2023 9:30 AM EDTRespiratory Rate--Oxygen Saturation--Inhaled Oxygen Concentration--Muceoc44 kg (165 lb 4.8 oz)10/08/2023 9:30 AM EDTHeight 157.5 cm (5' 2 )10/08/2023 9:30 AM EDTBody Mass Index30.23010/08/2023 9:30 AM EDT Plan of Treatment Health MaintenanceDue DateLast DoneCommentsCT Jfulknwhbcka53/11/1953FIT-DNA (Cologuard)1952FIT1952Lipid Panel1952Medicare Annual Wellness Visit (AWV)1950 3287Kzblsjvjpedpr12/11/1953TB Test1952TSH Level1952 Vitamin B-120 1952Vitamin M09-JZ75 1952Hepatitis B Surface Antibody 1953MMR Vaccines (1 of 1 - Standard series)1953Hepatitis C Screening 1970DTaP/Tdap/Td Vaccines (1 - Tdap)1974Zoster Vaccines (1 of 2) 2002Bone Density Scan/0606Qvsaeftue06, 02/02/2022, 01/25/2021, Additional history existsInfluenza Vaccine (#1) /, 12/18/2021, 11/23/2020, Additional history existsCOVID-19 Vaccine ( season), 12/22/2021, 07/04/2021, Additional history nbpgjoHbbkydilypp19, 09/07/2019, 01/16/2015, Additional history existsColorectal Cancer Fakblbkwl10/06/2034 Pneumococcal XmovvimHkdpzcdkq73/21/2019, 01/10/2017, 01/04/2016RSV High Risk: (Elderly (60+) or Population)Chwgzroop02/16/2023HIB VaccinesAged OutNo longer eligible based on patient's [...] patient's age to complete this topicRotavirus VaccinesAged OutNo longer eligible based on patient's age to complete this topic Insurance * Guarantor: Onesimo Chester TypeRelation to PatientDate of PhoneBilling AddressPersonal/SprvmaFgxx41/11/1951 ([address] [place] [address] [address] [place] [address]
[2025-01-19 07:36] LABS: Hematocrit 41.1 % (36.0-48.0); Hemoglobin 13.5 g/dL (12.0-16.0); Immature Granulocytes Abs Auto 0.06 10^3/uL (0.00-0.03); Immature Granulocytes Pct Auto 0.5 % (0.0-0.5); Lymphocytes Absolute Auto 1.2 10^3/uL (1.2-3.8); Mean Corpuscular HGB Conc 32.8 g/dL (29.9-35.2); Mean Corpuscular Hemoglobin 31.3 pg (26.7-34.0); Mean Corpuscular Volume 95.4 fL (81.0-99.0); Platelet Count 417 10^3/uL (150-450); Red Blood Count 4.31 10^6/uL (4.20-5.40); White Blood Count 11.3 10^3/uL (4.0-11.0)
[2025-01-19 07:52] LABS: Alanine Aminotransferase 25 U/L (14-59); Albumin Globulin Ratio 1.1; Albumin Level 4.0 g/dL (3.4-5.0); Alkaline Phosphatase 120 U/L (46-116); Anion Gap 15.6; Aspartate Amino Transferase 17 U/L (15-37); Blood Urea Nitrogen 16.0 mg/dL (7.0-18.0); Calcium 9.2 mg/dL (8.5-10.1); Carbon Dioxide 26.7 mmol/L (21.0-32.0); Chloride 106 mmol/L (98-107); Estimated GFR (African America >60 (>=60 mL/min/1.73m^2); Estimated GFR (Non-African Ame 59 (>=60 mL/min/1.73m^2); Globulin 3.6 g/dL; Glucose 89 mg/dL (74-106); Potassium 3.3 mmol/L (3.5-5.1); Sodium 145 mmol/L (136-145); Total Protein 7.6 g/dL (6.4-8.2)
[2025-01-19 09:10] LABS: Iron 77.0 ug/dL (50.0-170.0); Percent Iron Saturation 26.8 %; Total Iron Binding Capacity 287.0 ug/dL (250.0-450.0)
[2025-01-19 09:20] LABS: Ferritin 334.0 ng/mL (8.0-252.0)
[2025-01-20 04:09] LABS: Vitamin B12 712 pg/mL (232-1245)
== END 2025-01-19 07:21 | disposition home or self-care (01) ==
LOC: LAB 07:20
PROVIDERS: PCP Internal Medicine; Visit Provider Internal Medicine Hematology & Oncology
DX: D64.9 Anemia, unspecified (principal); D50.9 Iron deficiency anemia, unspecified; K90.9 Intestinal malabsorption, unspecified
CPT/HCPCS: 36415; 80053; 82306; 82607; 82728; 83540; 83550; 85025

== ENCOUNTER 2025-01-26 08:16 | Outpatient (RCR) | payer MEDICARE, OTHER, SELFPAY | END 2025-02-14 23:59 | disposition home or self-care (01) | LOC: HEMC 08:16 | PROVIDERS: PCP Internal Medicine; Visit Provider Internal Medicine Hematology & Oncology | DX: D50.9 Iron deficiency anemia, unspecified (principal); K90.9 Intestinal malabsorption, unspecified; D64.9 Anemia, unspecified; K21.9 Gastro-esophageal reflux disease without esophagitis; R05.3 Chronic cough; E05.00 Thyrotoxicosis with diffuse goiter without thyrotoxic crisis or storm | CPT/HCPCS: G0463 ==

== ENCOUNTER 2025-02-08 07:22 | Outpatient (OUT) | payer MEDICARE, OTHER, SELFPAY ==
--- OUTSIDE RECORDS SUMMARY | 2023-11-26 03:30 | XMS_ITS ---
Author Organization [facility] [place] Address [address] [place] [address] Care Team Providers Care Security Shift Supervisor Name Role Phone Andrea Wu DO Primary Care Provider Unavaila Chrissy Bates [phone] REASON FOR VISIT MD Encounters Encounter Location Date Provider Diagnosis [facility] Oncology [address] [place] [phone] 11/26/2023 Chrissy Hector Plan Of Treatment No Information Progress Notes * Ivory CHESTEROB:[birth year] (74 yo F)Acc No.[id number]:11/26/2023 UNLOCKED PROGRESS NOTE Progress Notes Patient: Munira CHAIDEZ :?Chrissy Hector M.D.:1950???Age:73 Y ???Sex:FemaleDate:4Phone:[phone]:[address] [place] [address], [place], [id number]:Andrea Wu DO Subjective: * Chief Complaints: * 1 . MD. * Medical History: Objective: * Vitals: Assessment: Plan: * Treatment: * * Electronic signature of Chrissy Hector MD, [id number] on 02/08/2025 at 07:25 AM ESTSign off status: PendingVisit Status:?CONFSMS (Voice) * Provider: Racheal Hector M.D. Date: 0 11/26/2023 Generated for Printing/Faxing/eTransmitting on:?02/08/2025 07:25 AM EST
--- OUTSIDE RECORDS SUMMARY | 2024-02-18 03:00 | XMS_ITS ---
Author Organization [facility] [place] Address [address] [place] [address] Care Team Providers Care Brush Maker Name Role Phone Andrea Wu DO Primary Care Provider Unavaila Chrissy Bates [phone] REASON FOR VISIT MD Encounters Encounter Location Date Provider Diagnosis [facility] Oncology [address] [place] [id number] 02/18/2024 Chrissy Hector Plan Of Treatment No Information Progress Notes * Ivory HCESTEROB:[birth year] (74 yo F)Acc No.[id number]:02/18/2024 UNLOCKED PROGRESS NOTE Progress Notes Patient: Munira CHAIDEZ :?Chrissy Hector M.D.:1950???Age:73 Y ???Sex:FemaleDate:4Phone:[phone]:[address] [place] [address], [place], [id number]:Andrea Wu DO Subjective: * Chief Complaints: * 1 . MD. * Medical History: Objective: * Vitals: Assessment: Plan: * Treatment: * * Electronic signature of Chrissy Hector MD, [id number] on 02/08/2025 at 07:26 AM ESTSign off status: PendingVisit Status:?CANC (Cancelled) * Provider: Racheal Hector M.D. Date: 04/20/2023 Generated for Printing/Faxing/eTransmitting on:?02/08/2025 07:26 AM EST
--- OUTSIDE RECORDS SUMMARY | 2024-02-25 03:15 | XMS_ITS ---
Author Organization [facility] in [place] Address [address] [place] [address] Care Team Providers Care Syrup Blender Name Role Phone Andrea Wu DO Primary Care Provider Unavaila Chrissy Bates [phone] REASON FOR VISIT MD Encounters Encounter Location Date Provider Diagnosis [facility] [address] [place] [phone] 02/25/2024 Chrissy Hector Plan Of Treatment No Information Progress Notes * Ivory CHESTEROB:[birth year] (74 yo F)Acc No.[id number]:02/25/2024 UNLOCKED PROGRESS NOTE Progress Notes Patient: Munira CHAIDEZ :?Chrissy Hector M.D.:1950???Age:73 Y ???Sex:FemaleDate:4Phone:[phone]:[address] [place] [address], [place], [id number]:Andrea Wu DO Subjective: * Chief Complaints: * 1 . MD. * Medical History: Objective: * Vitals: Assessment: Plan: * Treatment: * * Electronic signature of Chrissy Hector MD, [id number] on 02/08/2025 at 07:26 AM ESTSign off status: PendingVisit Status:?CONFSMS (Voice) * Provider: Racheal Hector M.D. Date: 04/27/2023 Generated for Printing/Faxing/eTransmitting on:?02/08/2025 07:26 AM EST
--- OUTSIDE RECORDS SUMMARY | 2024-05-05 04:00 | XMS_ITS ---
Author Organization [facility] in [place] Address [address] [place] [address] Care Team Providers Care Washateria Attendant Name Role Phone Andrea Wu DO Primary Care Provider Unavaila Chrissy Bates Unavailable [phone] REASON FOR VISIT MD Encounters Encounter Location Date Provider Diagnosis [facility] On[facility] [address] [place] [phone] 05/05/2024 Chrissy Hector Plan Of Treatment No Information Progress Notes * Ivory CHESTEROB:[birth year] (74 yo F)Acc No.[id number]:05/05/2024 UNLOCKED PROGRESS NOTE Progress Notes Patient: Munira CHAIDEZ :?Chrissy Hector M.D.:1950???Age:73 Y ???Sex:FemaleDate:05/05/2024Phone:[phone]:[address] [place] [address], [place], [place]-[id number]:Andrea Wu DO Subjective: * Chief Complaints: * 1 . MD. * Medical History: Objective: * Vitals: Assessment: Plan: * Treatment: * * Electronic signature of Chrissy Hector MD, [id number] on 02/08/2025 at 07:25 AM ESTSign off status: PendingVisit Status:?CONFSMS (Voice) * Provider: Racheal Hector M.D. Date: 0 05/05/2024 Generated for Printing/Faxing/eTransmitting on:?02/08/2025 07:25 AM EST
--- OUTSIDE RECORDS SUMMARY | 2024-07-07 03:30 | XMS_ITS ---
Author Organization The [facility] in [place] Address [address] [place] [address] Care Team Providers Care Assistant Director Of Financial Aid Name Role Phone Andrea Wu DO Primary Care Provider Unavaila Chrissy Bates Unavailable [phone] REASON FOR VISIT MD Encounters Encounter Location Date Provider Diagnosis The [facility] Oncology [address] [place] [phone] 07/07/2024 Chrissy Hector Plan Of Treatment No Information Progress Notes * Ivory CHESTEROB:[birth year] (74 yo F)Acc No.[id number]:07/07/2024 UNLOCKED PROGRESS NOTE Progress Notes Patient: Munira CHAIDEZ :?Chrissy Hector M.D.:1950???Age:73 Y ???Sex:FemaleDate:07/07/2024Phone:[phone]:[address] [place] [address], [place], [place]HCZ-[id number]:Andrea Wu DO Subjective: * Chief Complaints: * 1 . MD. * Medical History: Objective: * Vitals: Assessment: Plan: * Treatment: * * Electronic signature of Chrissy Hector MD, [id number] on 02/08/2025 at 07:25 AM ESTSign off status: PendingVisit Status:?CANC (Cancelled) * Provider: Racheal Hector M.D. Date: 0 07/07/2024 Generated for Printing/Faxing/eTransmitting on:?02/08/2025 07:25 AM EST
--- OUTSIDE RECORDS SUMMARY | 2024-07-21 03:30 | XMS_ITS ---
Author Organization The [facility] in [place] Address [address] [place] [address] Care Team Providers Care Entry Level Chemist Name Role Phone Andrea Wu DO Primary Care Provider Unavaila Chrissy Bates Unavailable [phone] REASON FOR VISIT MD Encounters Encounter Location Date Provider Diagnosis [facility] Oncology [address] [place] [address] 07/21/2024 Chrissy Hector Plan Of Treatment No Information Progress Notes * Ivory CHESTEROB:[birth year] (74 yo F)Acc No.[id number]:07/21/2024 UNLOCKED PROGRESS NOTE Progress Notes Patient: Munira CHAIDEZ :?Chrissy Hector M.D.:1950???Age:73 Y ???Sex:FemaleDate:07/21/2024Phone:[phone]:[address] [place] [address], [place], [place]ZR-[address]Ulz:Andrea Wu DO Subjective: * Chief Complaints: * 1 . MD. * Medical History: Objective: * Vitals: Assessment: Plan: * Treatment: * * Electronic signature of Chrissy Hector MD, [id number] on 02/08/2025 at 07:26 AM ESTSign off status: PendingVisit Status:?PEN (Pending) * Provider: Racheal Hector M.D. Date: 0 07/21/2024 Generated for Printing/Faxing/eTransmitting on:?02/08/2025 07:26 AM EST
--- OUTSIDE RECORDS SUMMARY | 2024-07-21 03:30 | XMS_ITS ---
Author Organization The [facility] in [place] Address [address] [place] [address] Care Team Providers Care Lens Edger Name Role Phone Andrea Wu DO Primary Care Provider Unavaila Chrissy Bates Unavailable [phone] REASON FOR VISIT MD Encounters Encounter Location Date Provider Diagnosis The [facility] Oncology [address] [place] [address] 07/21/2024 Chrissy Hector Plan Of Treatment No Information Progress Notes * Ivory CHESTEROB:[birth year] (74 yo F)Acc No.[id number]:07/21/2024 UNLOCKED PROGRESS NOTE Progress Notes Patient: Munira CHAIDEZ :?Chrissy Hector M.D.:1950???Age:73 Y ???Sex:FemaleDate:07/21/2024Phone:[phone]:[address] [place] [address], [place], [place]HLF-[id number]:Andrea Wu DO Subjective: * Chief Complaints: * 1 . MD. * Medical History: Objective: * Vitals: Assessment: Plan: * Treatment: * * Electronic signature of Chrissy Hector MD, [id number] on 02/08/2025 at 07:25 AM ESTSign off status: PendingVisit Status:?CANC (Cancelled) * Provider: Racheal Hector M.D. Date: 0 07/21/2024 Generated for Printing/Faxing/eTransmitting on:?02/08/2025 07:25 AM EST
--- OUTSIDE RECORDS SUMMARY | 2025-01-25 04:25 | XMS_ITS ---
Author Name Auto Generated Organization OHIP Care Team Providers [facility] Drier Name Role Phone MANE ARCE Attending Physician Unavailab CHARITO Blankenship Attending Physician Unavailable CHARITO FOSTER Attending Physician Unavailable LUZ ELENA FRANKLIN Attending Physician Unavailable KASEY FALLON Unavailable Unavailable ANDREA GOLDEN Primary Care Physician UnavailElijah Richmond Attending Physician Unavailable Elijah Botello Admitting Physician Unavailable Andrea Golden Primary Care Physician Unavailab le Lue, Asuncion M. Unavailable Unavailable Lue, Asuncion MJose Attending Physician Unavailable Lue, Asuncion M. Admitting Physician Unavailable Lue, Asuncion M. Admitting Physician Unavailable Lue, Asuncion M. Attending Physician Unavailable Lue, Asuncion M. Unavailable Unavailable Lue, Asuncion M. Attending Physician Unavailable Lue, Asuncion M. Unavailable Unavailable Lue, Asuncion M. Admitting Physician Unavailable Lue, Asuncion M. Unavailable Unavailable Lue, Asuncion M. Attending Physician Unavailable Lue, Asuncion M. Admitting Physician Unavailable Del Nettles Attending Physician Unavaila Del Hernandez Attending Physician Unavaila ble Lue, Asuncion MJose Attending Physician Unavailable Lue, Asuncion M. Attending Physician Unavailable Lue, Asuncion M. Attending Physician Unavailable Lue, Asuncion M. Admitting Physician Unavailable Lue, Asuncion M. Attending Physician Unavailable Lue, Asuncion M. Unavailable Unavailable Lue, Asuncion M. Unavailable Unavailable Lue, Asuncion M. Attending Physician Unavailable Lue, Asuncion M. Admitting Physician Unavailable Lue, Asuncion M. Admitting Physician Unavailable Lue, Asuncion M. Attending Physician Unavailable Lue, Asuncion M. Unavailable Unavailable PROBLEMS DATE TYPE CONDITION / CODE ATTENDING STATUS FINA JUANA 01/25/2025 Unknown Pain in left elizabeth ulder / M25.512(ICD-10) Elijah Botello Active [facility] 07/13/2024 Active Iron deficiency anemia due to chronic blood loss / D50.0(ICD-10) IZAIAHLUZ ELENA KAHN Active [facility] 07/13/2024 Active Abnormal finding on GI tract imaging / R93.3(ICD-10) IZAIAHLUZ ELENA KAHN Active [facility] RESULTS XR SHOULDER LT MIN 2V* Observed: 025 8:33 PM Status: COMPLETED Source: [facility] [place] [facility] [address] [place] [address] XRay Report Signed Patient: Munira Chester MR#: [id number] : 1950 Acct:[id number] Age/Sex: 74 / F ADM Date: 01/25/25 Loc: [facility] Room: Type: [facility] Attending Dr: Elijah Botello MD Copies to: Elijah Botello MD Ordering Provider: Elijah Botello MD Date of Service: 01/25/25 XR/XR shoulder LT min 2V*: M25.512 - Pain in left shoulder 4 views left compared to prior examination 10/10/2021 HISTORY: Chronic left shoulder pain with limited range of motion Adequate bony alignment without acute displaced fracture. Similar mild degeneration. No soft tissue abnormality. XR/XR shoulder LT min 2V* IMPRESSION: Similar mild degeneration. Impression dictated by: Abe Lu M.D. 01/25/2025 8:34 PM Dictation Location: [facility] Transcribed By: PWS 01/25/252033 Dictated By: Abe Lu DO 01/25/252032 Signed By: <Electronically signed by Abe Lu DO in OV> 01/25/252033 GASTROENTEROLOGY OFFICE/CLIN IC NOTE Observed: 12/10/2024 8:06 AM Status: F Source: [facility] Gastroenterology Office/Clin ic Note Chief Complaint Patient would like to [...] treated with z-pack for GI bacteria at [place] back pain Review of Systems PHQ Score [...] # 112 tab(s), Refills(s) 0, [facility]acy: [facility], 158, cm, 12/10/24 8:44:00 EDT, [...] day(s), # 112 tab(s), Refills(s) 0, Pharmacy: [facility], 158, cm, 12/10/24 8:44:00 EDT, [...] neuromodulators, tramadol, or other medications other than NSAIDs Follow-up No qualifying data available Problem List/Past Medical History Ongoing Abdominal bloating Acute allergic rhinitis due to pollen Adverse reaction to NSAIDs Arthritis Asthma Asymptomatic microscopic hematuria Benign essential hypertension Bilateral cataracts Cervical spondylosis Chronic tension headache Duodenal stricture Epigastric pain GERD (gastroesophageal reflux disease) Graves disease H/O gastric ulcer History of gastric ulcer History of UTI Hx of cholecystectomy Hyperlipidemia Hypertension Hypothyroidism, acquired, autoimmune Incomplete bladder emptying Intrinsic sphincter deficiency (ISD) Lumbar spondylosis Microscopic hematuria Migraine Mild persistent asthma Mixed incontinence Nocturia Osteopenia of lumbar spine Personal history of colonic polyps Post-cholecystectomy syndrome Postprandial diarrhea Recurrent UTI S/P cholecystectomy Small bowel stricture Urethral caruncle Urethral lesion Urge incontinence Urinary tract infection Historical Reflux of urine Procedure/Surgical History Cystoscopy (06/02/2024), Cystoscopy (04/07/2024), Colonoscopy (05/22/2023), Esophagogastroduodenoscopy (05/22/2023), Colonoscopy (09/07/2019), EGD - Esophagogastroduodenoscopy (09/07/2019), Colonoscopy (01/16/2015), EGD - Esophagogastroduodenoscopy (01/16/2015), EGD - Esophagogastroduodenoscopy (03/2011), EGD - Esophagogastroduodenoscopy (05/17/2011), Laparoscopic cholecystectomy (06/16/2010),Colonoscopy (01/16/2010), Cataracts, section, Dilation and curettage, Foot, Right wrist, Rotator cuff repair, Thyroidectomy, Tubal ligation. Medications amLODIPine 5 mg Tab, 5 mg= 1 tab(s), Oral, Daily atorvastatin 10 mg Tab, 10 mg= 1 tab(s), Oral, Daily Breo Ellipta 200 mcg-25 mcg/inh inhalation powder, 1 inh, Inhalation, Daily Carafate 1 gram Tab, 1 gm= 1 tab(s), Oral, QID EpiPen 2-Giovani, 0.3 mg, IntraMuscular, Once, PRN estradiol 0.1 mg/g Vag Crm, See Instructions famotidine 20 mg Tab, 20 mg= 1 tab(s), Oral, BID fluticasone 0.05 mg/inh Nasal [place], 2 spray(s), Nasal, Daily Fosamax 70 mg Tab, 70 mg= 1 tab(s), Oral, qWeek Hair, Skin & Nails 5 mg oral capsule, Oral, Daily levothyroxine 100 mcg (0.1 mg) Tab, 100 mcg= 1 tab(s), Oral, Daily Macrobid 100 mg Cap, 100 mg= 1 cap(s), Oral, As Directed, 3 refills montelukast 10 mg Tab, 10 mg= 1 tab(s), Oral, qPM Multi Vitamins oral tablet, 1 tab(s), Oral, Daily orphenadrine compounding powder, PRN Pantoprazole [address] Tab, 40 mg= 1 tab(s), Oral, Daily, 1 refills ProAir HFA 90 mcg/inh inhalation aerosol, 2 puff(s), Inhalation, q4hr, PRN Questran 4 g/9 g oral powder, 1 packet(s), Oral, Daily, 3 refills Vitamin D3, Oral, Daily Xhance 93 mcg/inh nasal spray, BID Zyrtec, Oral, Daily Allergies Bee Stings (SOB - Shortness of breath, Hives) amoxicillin (Rash) contrast media (iodine-based) (SOB - Shortness of breath, Hives) sulfa drugs (Angio-oedema) Social History Alcohol - Denies Alcohol Use, 09/04/2019 Never., 02/20/2024 Substance Abuse - Denies Substance Abuse, 09/04/2019 Never., 02/20/2024 Tobacco Never (less than 100 in lifetime) Tobacco Use:. Never Smokeless Tobacco Use:., 12/10/2024 Never (less than 100 in lifetime) Tobacco Use:., 08/05/2024 Never (less than 100 in lifetime) Tobacco Use:. Never Smokeless Tobacco Use:. Household tobacco concerns: No., 04/22/2024 Family History Diabetes mellitus type 2: Father. Primary malignant neoplasm of female breast: Sister. Primary malignant neoplasm of lung: Mother. Rheumatoid arthritis: Mother. Immunizations Vaccine Date Status Comments influenza virus vaccine, inactivated 01/13/2024 Recorded influenza virus vaccine, inactivated 12/31/2022 Recorded SARS-CoV-2 (COVID-19) [id number] 12/22/2021 Recorded influenza virus vaccine, inactivated 12/18/2021 [...] 01/04/2016 Recorded influenza virus vaccine, inactivated 01/04/2016 RecordedResult Comment: Electronically Signed By: Tho VILLEGAS, Del Duckworth\.br\Date and Time Signed: 12/10/2508:09 EDT AMBULATORY VISIT SUMMARY Observed: 12/10 8:06 AM Status: F Source: [facility] Ambulatory Visit Summary MUNIRA CHESTER :1950 Visit Date:12/10/2024 [...] spray) fluticasone nasal (fluticasone 0.05 mg/inh Nasal [place]) fluticasone-vilanterol (Breo Ellipta 200 mcg-25 mcg/inh inhalation [...] Epigastric pain Duration: 28 Days Pickup at [facility] Unchanged albuterol (ProAir HFA [...] fluticasone nasal (fluticasone 0.05 mg/ inh Nasal [place]) 2 Sprays Nasal Inhalation Every day Contact [...] before or after intercourse to prevent infection. Contact prescribing physician if questionsor concerns Unchanged orphenadrine (orphenadrine compounding powder) As needed for Migraine headache Contact prescribing physician if questions or concerns Unchanged pantoprazole (Pantoprazole [address] Tab) 1 Tablets By Mouth Every day Epigastric pain Abdominal bloating GERD (gastroesophageal reflux disease) H/O gastric ulcer BMI 29.0-29.9,adult Epigastric pain Abdominal bloating GERD (gastroesophageal reflux disease) H/O gastric ulcer BMI 29.0-29.9,adult Contact prescribing physician if questions or concerns Pharmacy Information [facility]: [address] [place], [place] [id number] [phone] Allergies Bee Stings (SOB - Shortness of breath, Hives) amoxicillin (Rash) contrast media (iodine-based) (SOB - Shortness of breath, Hives) sulfa drugs (Angio-oedema) Problems Ongoing - Any problem that you are currently receiving treatment for. Abdominal bloating Acute allergic rhinitis due to pollen Adverse reaction to NSAIDs Arthritis Asthma Asymptomatic microscopic hematuria Benign essential hypertension Bilateral cataracts Cervical spondylosis Chronic tension headache Duodenal stricture Epigastric pain GERD (gastroesophageal reflux disease) Graves disease H/O gastric ulcer History of gastric ulcer History of UTI Hx of cholecystectomy Hyperlipidemia Hypertension Hypothyroidism, acquired, autoimmune Incomplete bladder emptying Intrinsic sphincter deficiency (ISD) Lumbar spondylosis Microscopic hematuria Migraine Mild persistent asthma Mixed incontinence Nocturia Osteopenia of lumbar spine Personal history of colonic polyps Post-cholecystectomy syndrome Postprandial diarrhea Recurrent UTI S/P cholecystectomy Small bowel stricture Urethral caruncle Urethral lesion Urge incontinence Urinary tract infection Historical - Any problem that you are no longer receiving treatment for. Reflux of urine Patient Survey You may receive a survey via text or e-mail asking about your office visit. Please share your experience with us by completing your survey. We appreciate your feedback and thank you for choosing us for your care. Patient Portal You may access all of your results and other medical record information on our secure patient portal. If you are not signed up for this yet, please contact [facility] at [phone] to get signed up today. Language Information Language assistance services are available as needed. AMBULATORY VISIT SUMMARY Observed: 08/05 2:10 PM Status: F Source: [facility] Ambulatory Visit Summary MUNIRA CHESTER :1950 Visit Date:08/05/2024 Ambulatory Visit Instructions Your Diagnosis Postprandial diarrhea Hx of cholecystectomy, S/P cholecystectomy Adverse reaction to NSAIDs Post-cholecystectomy syndrome Anemia Your Care Team Attending Physician - Del Nettles MD Primary Care Physician - ANDREA GOLDEN DO This Is Your Medications List cholestyramine (Questran 4 g/9 g oral powder) Contact prescribing physician if questions or concerns Nitin albuterol (ProAir HFA 90 mcg/inh inhalation aerosol) [...] spray) fluticasone nasal (fluticasone 0.05 mg/inh Nasal [place]) fluticasone-vilanterol (Breo Ellipta 200 mcg-25 mcg/inh inhalation [...] cholecystectomy Post-cholecystectomy syndrome Refills: 3 Pickup at [facility] Unchanged albuterol (ProAir HFA 90 mcg/ [...] fluticasone nasal (fluticasone 0.05 mg/ inh Nasal [place]) 2 Sprays Nasal Inhalation Every day Contact prescribing physician if questions or concerns Unchanged fluticasone nasal (Xhance 93 mcg/ inh nasal spray) 2 times a day Contact prescribing physician if questions or concerns Unchanged fluticasone-vilanterol (Breo Ellipta 200 mcg-25 mcg/ inh inhalation powder) 1 Inhalation Inhalation Every day Contact prescribing physician if questions or concerns Unchanged Nitin See instructions drink BID Contact prescribing physician [...] before or after intercourse to prevent infection. Contact prescribing physician if questionsor concerns Unchanged orphenadrine (orphenadrine compounding powder) As needed for Migraine headache Contact prescribing physician if questions or concerns Unchanged pantoprazole (Pantoprazole [address] Tab) 1 Tablets By Mouth Every day Epigastric pain Abdominal bloating GERD (gastroesophageal reflux disease) H/O gastric ulcer BMI 29.0-29.9,adult Epigastric pain Abdominal bloating GERD (gastroesophageal reflux disease) H/O gastric ulcer BMI 29.0-29.9,adult Contact prescribing physician if questions or concerns Pharmacy Information [facility]: [address] [place], [place] [phone] Allergies Bee Stings (SOB - Shortness of breath, Hives) amoxicillin (Rash) contrast media (iodine-based) (SOB - Shortness of breath, Hives) sulfa drugs (Angio-oedema) Problems Ongoing - Any problem that you are currently receiving treatment for. Abdominal bloating Acute allergic rhinitis due to pollen Adverse reaction to NSAIDs Arthritis Asthma Asymptomatic microscopic hematuria Benign essential hypertension Bilateral cataracts Cervical spondylosis Chronic tension headache Duodenal stricture Epigastric pain GERD (gastroesophageal reflux disease) Graves disease H/O gastric ulcer History of gastric ulcer History of UTI Hx of cholecystectomy Hyperlipidemia Hypertension Hypothyroidism, acquired, autoimmune Incomplete bladder emptying Intrinsic sphincter deficiency (ISD) Lumbar spondylosis Microscopic hematuria Migraine Mild persistent asthma Mixed incontinence Nocturia Osteopenia of lumbar spine Personal history of colonic polyps Post-cholecystectomy syndrome Postprandial diarrhea Recurrent UTI S/P cholecystectomy Small bowel stricture Urethral caruncle Urethral lesion Urge incontinence Urinary tract infection Historical - Any problem that you are no longer receiving treatment for. Reflux of urine Patient Survey You may receive a survey via text or e-mail asking about your office visit. Please share your experience with us by completing your survey. We appreciate your feedback and thank you for choosing us for your care. GASTROENTEROLOGY OFFICE/CLIN IC NOTE Observed: 08/05/2024 2:10 PM Status: F Source: [facility] Gastroenterology Office/Clin ic Note Chief Complaint follow up to endo [...] Daily, # 30 EA, Refills(s) 3, Pharmacy: [facility], 158, cm, 08/05/24 14:23:00 EDT, Height/Length Dosing, 77.2, kg, 08/05/24 14:23:00 EDT, Weight Dosing 2. Hx of cholecystectomy, (Z90.49: Acquired absence of other specified parts of digestive tract)S/Pcholecystectomy Ordered: cholestyramine, = 1 packet(s), Oral, Daily, # 30 EA, Refills(s) 3, Pharmacy: [facility], 158, cm, 08/05/24 14:23:00 EDT, Height/Length Dosing, 77.2, kg, 08/05/24 14:23:00 EDT, Weight Dosing 3. Adverse reaction to NSAIDs (T39.395A: Adverse effect of other nonsteroidal anti-inflammatory drugs [NSAID], initial encounter) Ordered: cholestyramine, = 1 packet(s), Oral, Daily, # 30 EA, Refills(s) 3, Pharmacy: [facility], 158, cm, 08/05/24 14:23:00 EDT, Height/Length Dosing, 77.2, kg, 08/05/24 14:23:00 EDT, Weight Dosing 5. 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) Ordered: cholestyramine, = 1 packet(s), Oral, Daily, # 30 EA, Refills(s) 3, Pharmacy: [facility], 158, cm, 08/05/24 14:23:00 EDT, Height/Length Dosing, 77.2, kg, 08/05/24 14:23:00 EDT, Weight Dosing Anemia (D64.9: Anemia, unspecified) Ordered: Current tobacco non-user 1036F Most recent diastolic blood pressure 80-89 mm Hg 3079F Systolic BP <130 mm Hg (Most Recent) 3074F Prescribe Questran 4 g every other day and increase the frequency to once a day or twice a day Advised to avoid NSAIDs Might benefit from stool tests if Questran does not work Might benefit from neuromodulator in the future Follow-up No qualifying data available Problem List/Past Medical History Ongoing Abdominal bloating Acute allergic rhinitis due to pollen Adverse reaction to NSAIDs Arthritis Asthma Asymptomatic microscopic hematuria Benign essential hypertension Bilateral cataracts Cervical spondylosis Chronic tension headache Duodenal stricture Epigastric pain GERD (gastroesophageal reflux disease) Graves disease H/O gastric ulcer History of gastric ulcer History of UTI Hx of cholecystectomy Hyperlipidemia Hypertension Hypothyroidism, acquired, autoimmune Incomplete bladder emptying Intrinsic sphincter deficiency (ISD) Lumbar spondylosis Microscopic hematuria Migraine Mild persistent asthma Mixed incontinence Nocturia Osteopenia of lumbar spine Personal history of colonic polyps Post-cholecystectomy syndrome Postprandial diarrhea Recurrent UTI S/P cholecystectomy Small bowel stricture Urethral caruncle Urethral lesion Urge incontinence Urinary tract infection Historical Reflux of urine Procedure/Surgical History Cystoscopy (06/02/2024), Cystoscopy (04/07/2024), Colonoscopy (05/22/2023), Esophagogastroduodenoscopy (05/22/2023), Colonoscopy (09/07/2019), EGD - Esophagogastroduodenoscopy (09/07/2019), Colonoscopy (01/16/2015), EGD - Esophagogastroduodenoscopy (01/16/2015), EGD - Esophagogastroduodenoscopy (03/2011), EGD - Esophagogastroduodenoscopy (05/17/2011), Laparoscopic cholecystectomy (06/16/2010),Colonoscopy (01/16/2010), Cataracts, section, Dilation and curettage, Foot, Right wrist, Rotator cuff repair, Thyroidectomy, Tubal ligation. Medications amLODIPine 5 mg Tab, 5 mg= 1 tab(s), Oral, Daily atorvastatin 10 mg Tab, 10 mg= 1 tab(s), Oral, Daily Breo Ellipta 200 mcg-25 mcg/inh inhalation powder, 1 inh, Inhalation, Daily EpiPen 2-Giovani, 0.3 mg, IntraMuscular, Once, PRN estradiol 0.1 mg/g Vag Crm, See Instructions famotidine 20 mg Tab, 20 mg= 1 tab(s), Oral, BID fluticasone 0.05 mg/inh Nasal [place], 2 spray(s), Nasal, Daily Fosamax 70 mg Tab, 70 mg= 1 tab(s), Oral, qWeek Hair, Skin & Nails 5 mg oral capsule, Oral, Daily Nitin, See Instructions levothyroxine 100 mcg (0.1 mg) Tab, 100 mcg= 1 tab(s), Oral, Daily Macrobid 100 mg Cap, 100 mg= 1 cap(s), Oral, As Directed, 3 refills montelukast 10 mg Tab, 10 mg= 1 tab(s), Oral, qPM Multi Vitamins oral tablet, 1 tab(s), Oral, Daily orphenadrine compounding powder, PRN Pantoprazole [address] Tab, 40 mg= 1 tab(s), Oral, Daily, 1 refills ProAir HFA 90 mcg/inh inhalation aerosol, 2 puff(s), Inhalation, q4hr, PRN Questran 4 g/9 g oral powder, 1 packet(s), Oral, Daily, 3 refills Vitamin D3, Oral, Daily Xhance 93 mcg/inh nasal spray, BID Zyrtec, Oral, Daily Allergies Bee Stings (SOB - Shortness of breath, Hives) amoxicillin (Rash) contrast media (iodine-based) (SOB - Shortness of breath, Hives) sulfa drugs (Angio-oedema) Social History Alcohol - Denies Alcohol Use, 09/04/2019 Never., 02/20/2024 Substance Abuse - Denies Substance Abuse, 09/04/2019 Never., 02/20/2024 Tobacco Never (less than 100 in lifetime) Tobacco Use:., 08/05/2024 Never (less than 100 in lifetime) Tobacco Use:. Never Smokeless Tobacco Use:. Household tobacco concerns: No., 04/22/2024 Never (less than 100 in lifetime) Tobacco Use:., 05/30/2023 Family History Diabetes mellitus type 2: Father. Primary malignant neoplasm of female breast: Sister. Primary malignant neoplasm of lung: Mother. Rheumatoid arthritis: Mother. Immunizations Vaccine Date Status Comments influenza virus vaccine, inactivated 01/13/2024 Recorded influenza virus vaccine, inactivated 12/31/2022 Recorded SARS-CoV-2 (COVID-19) [id number] 12/22/2021 Recorded influenza virus vaccine, inactivated 12/18/2021 [...] 01/04/2016 Recorded influenza virus vaccine, inactivated 01/04/2016 RecordedResult Comment: Electronically Signed By: Tho VILLEGAS, Del Duckworth\.br\Date and Time Signed: 08/05/2513:45 EDT REMINDERS Observed: 08/05/2024 1:08 PM Status: F Source: [facility] Reminders From: Michelle GARCÍA, Pat S To: [facility] - Reminders/Recalls; Sent: 08/05/2024 13:08:13 EDT Show up: 05/16/2029 13:08:00 EST Subject: Ambulatory Reminder Due Date/Time: 07/13/2029 13:08:00 EDT Reminder/Recall 5 year colon 07/13/24 Dr Tho BALTAZAR POSTPROC EVAL Observed: 07/13/2024 4:28 PM Status: COMPLETED Source: [facility] HNO ID: [id number] Author: LUZ ELENA FRANKLIN MD Service: ? [...] Scheduled Providers: Kasey Fallon MD; Rosaura Marie APRN.OPS MANAGER; Luz Elena Franklin MD Responsible Provider: Luz [...] July 13, 2024 TIME: 4:28 PM CSN: [id number] NURSING PROG Observed: 07/13/2024 3:30 PM Status: COMPLETED Source: [facility] HNO ID: [id number] Author: LINDA ALVARADO RN Service: ? Author [...] None Electronically Signed By: Linda Alvarado RN TISS PATH BX REPORT Collected: 07/13/2024 3:[address] atus: F Source: [facility] Order Comment: Specimen Type : TISSUE SPECIMEN Ordering Facility: [facility] Address: [address] [place], [place] [address]TYPECODETESTSRESULTOUT OF RANGE [id number] REPORTResult Comment: Surgical Pathology Report Case: [id number] Authorizing Provider: Kasey Fallon MD Collected: 07/13/2024 03:06 PM Ordering Location: Gastroenterology Received: 07/13/2024 06:18 PM Pathologist: Elijah Sharp MD Specimens: A) - Small Bowel, Ileum, Biopsy, Mid ileal stricture B) - Small Bowel, Ileum, Biopsy, Distal ileal C) - Small Bowel, Terminal Ileum, Biopsy D) - Colon, Hepatic Flexure, [id number] DIAGNOSISResult Comment: A. Mid ileal stricture, biopsy: - Small bowel mucosa with ulcer. - Negative for dysplasia or granulomas. B. Ileum, biopsy: - Small bowel mucosa with no significant pathologic changes. C. Terminal ileum, biopsy: - Small bowel mucosa with no significant pathologic changes. D. Hepatic flexure, polypectomy: - Fragments of tubular adenoma. at 1114 EDTPATHOLOGY [id number] DESCRIPTIONResult Comment: A. Small Bowel, Ileum, Biopsy Received [...] in one cassette. Gross examination performed at [facility], [address] [place] [address] July 13, 2024 10:18 PMPATHOLOGYFPLABFINAL PERFORMING LABResult Comment: Diagnostic interpretation performed at: [facility], [address] [place] [address] CLIA# [id number] Branch Administrator: Tanvi Astudillo, [id number] DISCLAIMERResult Comment: Laboratory Developed Test (LDT) Disclaimer: Performance characteristics of immunohistochemical, immunofluorescent, and chromogenic in-situ hybridization tests have been determined by the performing laboratory within [facility]'s [facility] Pathology and Laboratory Medicine Department ([facility], [facility], [facility], [facility], [facility], [facility], or [facility]) in a manner consistent with CLIA requirements. One or more of these tests may not have been cleared or approved by the FDA. [facility] is regulated under CLIA as qualified to perform high- complexity testing. These tests are used for clinical purposes. These should not be regarded asinvestigational or for research. Positive and negative controls stain appropriately.Performed By: #### [id number] #### [facility] CLIA [id number] [address] [place] [address] LAB CLIA [id number] [address] [place] [address] ANES PROCEDURE NOTE Observed: 07/13/2024 1:58 PM Status: COMPLETED Source: [facility] HNO ID: [id number] Author: ROSAURA MARIE APRN.OPS MANAGER Service: ? Author Type: Nurse Receiver Type: Anesthesia Procedure Notes Filed: 07/13/2024 13:59 Note Text: ANESTHESIOLOGY PROCEDURE NOTE Airway General Information Procedure Start Time/Medication Administration: 07/13/2024 1:47 PM Procedure End Time: 07/13/2024 1:58 PM Patient location during procedure: OR Timeout Performed Pre-procedure: timeout performed Consent Obtained: Yes Patient identity confirmed: arm band and patient Staffing OPS MANAGER: Rosaura Marie APRN.CRNA Performed by: JOHNNY Indications and Patient Condition [...] July 13, 2024 TIME: 1:58 PM CSN: [id number] ANES PRE-OP Observed: 07/13/2024 1:24 PM Status: COMPLETED Source: [facility] ID: [id number] Author: LUZ ELENA FRANKLIN MD Service: ? Author Type: Physician Type: Anesthesia Preprocedure Evaluation Filed: 07/13/2024 13:38 Note Text: ANESTHESIOLOGY DAY OF SURGERY NOTE : 1950 Procedure Information Date/Time: 07/13/24 1300 Scheduled providers: Kasey Fallon MD; Rosaura Marie APRN.CRNA; Luz Elena Franklin MD Procedure: ENTEROSCOPY Location: [...] a current smoker. NPO Status: adequate Beta Bebe Monitoring Plan Monitoring plan: standard ASA. Post Procedure Analgesic Plan Postoperative analgesic plan: multimodal analgesia. Informed Consent Anesthetic risks, benefits, alternatives, personnel and consent discussed: yes. Patient / Responsible Libertarian agrees to proceed: yes Patient / Surrogate [...] ORAL) Take by mouth. vit A/vit C/biotin/zinc/copper (RCHN-[id number]-QTYV,VIT A,C-BIOTIN, ORAL) Take by mouth. aspirin 325 [...] (FLONASE) 50 mcg/actuation nasal spray Use 1 [place] in each nostril once daily. atorvastatin (LIPITOR) [...] updated information obtained within 48 hours of Surgery/Procedure. SIGNATURE: Luz Elena Franklin MD PATIENT NAME: Munira Chester DATE: July 13, 2024 TIME: 1:24 PM CSN: [id number] HISTORY PHYSICAL Observed: 07/13/2024 1:00 PM Status: COMPLETED Source: [facility] HNO ID: [id number] Author: KASEY FALLON MD Service: Gastroenterology Author [...] ORAL) Take by mouth. vit A/vit C/biotin/zinc/copper (FICH-BNQQ-EMAX,VIT A,C-BIOTIN, ORAL) Take by mouth. aspirin 325 [...] (FLONASE) 50 mcg/actuation nasal spray Use 1 [place] in each nostril once daily. atorvastatin (LIPITOR) [...] murmur ABDOMEN: Soft, non-tender, no masses SIGNATURE: aKsey Fallon MD PATIENT NAME: Munira Chester DATE: 07/13/2024 TIME: 1345 NURSING PROG Observed: 07/13/2024 12:56 PM Status: COMPLETED Source: [facility] HNO ID: [id number] Author: MARY CALLEJAS RN Service: ? Author [...] By: Mary Callejas RN In Department: GASTROENTEROLOGY LOWER BALLOON-ASSISTED ENTEROSCOPY WITHOUT FLUOROSCOPY Observed: 07/13/2024 12:36 PM Status: F Source: [facility] Q3 Patient Name: Munira Chester Procedure Date: 07/13/2024 12:36 PM Date of : 1950 Admit Type: Outpatient Age: 73 Gender: Female Note Status: Finalized Attending MD: Kasey Fallon MD, [id number] Procedure: Lower Device-Assisted Enteroscopy without Fluoroscopy Indications: Abnormal video capsule endoscopy Providers: Kasey Fallon MD Patient Profile: This is a 73 year old female. Refer to note in patient chart for documentation of history and physical. Referring Physician: Kasey Fallno MD (Referring MD) Medicines: See the Anesthesia [...] pathology results. Procedure Code(s): --- Professional --- 08352, Colonoscopy, flexible; with removal of tumor(s), polyp(s), or other lesion(s) by snare technique 54283, Colonoscopy, flexible; with transendoscopic balloon dilation 34888, Colonoscopy, flexible; with transendoscopic balloon dilation 43521, 59, Colonoscopy, flexible; with biopsy, single or multiple 62553, Colonoscopy, flexible; with directed submucosal injection(s), any substance 94027, Unlisted procedure, small intestine Diagnosis Code(s): --- Professional --- D12.3, Benign neoplasm of transverse colon (hepatic flexure or splenic flexure) K56.699, Other intestinal obstruction unspecified as to partial versus complete obstruction R93.3, Abnormal findings on diagnostic imaging of other parts of digestive tract CPT copyright 2020 [place] [employer]. All rights reserved. Attending Participation: I personally performed the entire procedure. Scope In: 1:54:34 PM Scope Out: 3:05:33 PM MD Kasey Davis MD 07/13/2024 3:18:19 PM This report has been signed electronically by Kasey Fallon MD Number of Addenda: 0 Note Initiated On: 07/13/2024 12:36 PM PATIENT EDUCATION Observed: 07/08/2024 9:52 AM Status: F Source: [facility] Patient Education Urology Urinary Incontinence Urinary incontinence [...] nerve stimulation). ? For women, using a certified medical technician assistant to prevent urine leaks. This is [...] that can protect the skin from urine. ??? Consider wearing pads or adult diapers. Make sure to change them regularly, and always change them right after experiencing incontinence. General instructions ??? Take dqms-ldz-nvupmhm and prescription medicines only as told by your health care provider. ??? Use the bathroom about every 3?4 hours, even if you do not feel the need to urinate. Try to empty your bladder completely every time. After urinating, wait a minute. Then try to urinate again. ??? Make sure you are in a relaxed position while urinating. ??? If your incontinence is caused by nerve problems, keep a log of the medicines you take and the times you go to the bathroom. ??? Keep all follow-up visits. This is important. Where to find more information ??? National [place] of Diabetes and Digestive and Kidney Diseases: www.niddk.nih.gov ??? [place] [employer]: www.urologyhealth.org Contact a health care provider if: ??? You have pain that gets worse. ??? Your incontinence gets worse. Get help right away if: ??? You have a fever or chills. ??? You are unable to urinate. ??? You have redness in your groin area or down your legs. Summary ??? Urinary incontinence refers to a condition in which a person is unable to control where and when to pass urine. ??? This condition may be caused by medicines, infection, weak bladder muscles, weak pelvic floor muscles, enlargement of the prostate (in men), or surgery. ??? Factors such as older age, obesity, and childbirth, menopause, neurological diseases,and chronic coughing may increase your risk for developing this condition. ??? Types of urinary incontinence include urge incontinence, stress incontinence, overflow incontinence, and functional incontinence. ??? This condition is usually treated first with lifestyle and behavioral changes, such as quittingsmoking, eating a healthier diet, and doing regular pelvic floor exercises. Other treatment optionsinclude medicines, bulking agents, medical devices, electrical nerve stimulation, or surgery. This information is not intended to replace advice given to you by your health care provider. Make sure you discuss any questions you have with your health care provider. Document Revised: 10/07/2020 Document Reviewed: 10/07/2020 [employer] Patient Education ? 2023 [employer]. UROLOGY OFFICE/CLINIC NOTE Observed: 8:51 AM Status: F Source: [facility] Urology Office/Clinic Note Chief Complaint F/U with [...] . -Refer to Dr. Janae Caban at [facility] for further w/up such [...] Refer to Dr. Janae Caban at [facility] Patient Education Urinary Incontinence I, Ailyn Aranda, [...] H/O gastric ulcer History of gastric ulcer History of UTI Hyperlipidemia Hypertension Hypothyroidism, acquired, autoimmune Incomplete bladder emptying Intrinsic sphincter deficiency (ISD) Lumbar spondylosis Microscopic hematuria Migraine Mild persistent asthma Mixed incontinence Nocturia Osteopenia of lumbar spine Personal history of colonic polyps Recurrent UTI Small bowel stricture Urethral caruncle Urethral lesion Urge incontinence Urinary tract infection Historical Reflux of urine Procedure/Surgical History Cystoscopy (06/02/2024), Cystoscopy (04/07/2024), Colonoscopy (05/22/2023), Esophagogastroduodenoscopy (05/22/2023), Colonoscopy (09/07/2019), EGD - Esophagogastroduodenoscopy (09/07/2019), Colonoscopy (01/16/2015), EGD - Esophagogastroduodenoscopy (01/16/2015), EGD - Esophagogastroduodenoscopy (03/2011), EGD - Esophagogastroduodenoscopy (05/17/2011), Laparoscopic cholecystectomy (06/16/2010),Colonoscopy (01/16/2010), Cataracts, section, Dilation and curettage, Foot, Right wrist, Rotator cuff repair, Thyroidectomy, Tubal ligation. Medications amLODIPine 5 mg Tab, 5 mg= 1 tab(s), Oral, Daily atorvastatin 10 mg Tab, 10 mg= 1 tab(s), Oral, Daily Breo Ellipta 200 mcg-25 mcg/inh inhalation powder, 1 inh, Inhalation, Daily EpiPen 2-Giovani, 0.3 mg, IntraMuscular, Once, PRN estradiol 0.1 mg/g Vag Crm, See Instructions famotidine 20 mg Tab, 20 mg= 1 tab(s), Oral, BID fluticasone 0.05 mg/inh Nasal [place], 2 spray(s), Nasal, Daily Fosamax 70 mg Tab, 70 mg= 1 tab(s), Oral, qWeek Hair, Skin & Nails 5 mg oral capsule, Oral, Daily levothyroxine 100 mcg (0.1 mg) Tab, 100 mcg= 1 tab(s), Oral, Daily Macrobid 100 mg Cap, 100 mg= 1 cap(s), Oral, As Directed, 3 refills montelukast 10 mg Tab, 10 mg= 1 tab(s), Oral, qPM Multi Vitamins oral tablet, 1 tab(s), Oral, Daily orphenadrine compounding powder, PRN Pantoprazole [address] Tab, 40 mg= 1 tab(s), Oral, Daily, 1 refills ProAir HFA 90 mcg/inh inhalation aerosol, 2 puff(s), Inhalation, q4hr, PRN Vitamin D3, Oral, Daily Xhance 93 mcg/inh nasal spray, BID Zyrtec, Oral, Daily Allergies Bee Stings (SOB - Shortness of breath, Hives) amoxicillin (Rash) contrast media (iodine-based) (SOB - Shortness of breath, Hives) sulfa drugs (Angio-oedema) Social History Alcohol - Denies Alcohol Use, 09/04/2019 Never., 02/20/2024 Substance Abuse - Denies Substance Abuse, 09/04/2019 Never., 02/20/2024 Tobacco Never (less than 100 in lifetime) Tobacco Use:. Never Smokeless Tobacco Use:. Household tobacco concerns: No., 04/22/2024 Never (less than 100 in lifetime) Tobacco Use:., 02/05/2024 Never (less than 100 in lifetime) Tobacco Use:., 05/30/2023 Family History Diabetes mellitus type 2: Father. Primary malignant neoplasm of female breast: Sister. Primary malignant neoplasm of lung: Mother. Rheumatoid arthritis: Mother. Immunizations Vaccine Date Status Comments influenza virus vaccine, inactivated 01/13/2024 Recorded influenza virus vaccine, inactivated 12/31/2022 Recorded SARS-CoV-2 (COVID-19) [id number] 12/22/2021 Recorded influenza virus vaccine, inactivated 12/18/2021 [...] Recorded influenza virus vaccine, inactivated 01/04/2016 Recorded Lab Results Ambulatory Point of Care Results Bilirubin Urine Dipstick: Negative (07/08/24 09:17:00) Blood Urine Dipstick: Negative (07/08/24 09:17:00) Glucose Urine Dipstick: Negative (07/08/24 09:17:00) Ketones Urine Dipstick: Negative (07/08/24 09:17:00) Leukocytes Urine Dipstick: Trace (07/08/24 09:17:00) Nitrite Urine Dipstick: Negative (07/08/24 09:17:00) Protein Urine Dipstick: Negative (07/08/24 09:17:00) Specific [place] Urine Dipstick: 1.010 (07/08/24 09:17:00) Urine Appearance Urine Dipstick: Clear (07/08/24 09:17:00) Urine Color Urine Dipstick: Yellow (07/08/24 09:17:00) Urobilinogen Urine Dipstick: Normal 0.2-1 EU/dl (07/08/24 09:17:00) pH Urine Dipstick: 5.5 (07/08/24 09:17:00)Result Comment: Electronically Signed By: Asuncion Buchanan MD\.br\Date and Time Signed: 07/08/24 10:37 EDT\.br\Electronically Co-Signed By: Ailyn Aranda\.br\Date and Time Co- Signed: 07/08/24 09:53 EDT AMBULATORY VISIT SUMMARY Observed: 07/08 8:51 AM Status: F Source: [facility] Ambulatory Visit Summary MUNIRA CHESTER :1950 Visit Date:07/08/2024 Ambulatory Visit Instructions Your Diagnosis Intrinsic sphincter deficiency (ISD) Urethral lesion Urethral caruncle Recurrent UTI Your Care Team Attending Physician - Asuncion [...] spray) fluticasone nasal (fluticasone 0.05 mg/inh Nasal [place]) fluticasone-vilanterol (Breo Ellipta 200 mcg-25 mcg/inh inhalation [...] Someone Will Contact You Regarding These Appointments [facility] External Ambulatory Referral, Urology, Dr. Janae Caban at [facility], 07/08/24 9:53:00 EDT, Intrinsic sphincter deficiency (ISD) [...] fluticasone nasal (fluticasone 0.05 mg/ inh Nasal [place]) 2 Sprays Nasal Inhalation Every day Contact [...] reflux disease) H/O gastric ulcer BMI 29.0-29.9,adult Contact prescribing physician if questions or concerns Allergies Bee Stings (SOB - Shortness of breath, Hives) amoxicillin (Rash) contrast media (iodine-based) (SOB - Shortness of breath, Hives) sulfa drugs (Angio-oedema) Problems Ongoing - Any problem that you are currently receiving treatment for. Abdominal bloating Acute allergic rhinitis due to pollen Arthritis Asthma Asymptomatic microscopic hematuria Benign essential hypertension Bilateral cataracts Cervical spondylosis Chronic tension headache Duodenal stricture Epigastric pain GERD (gastroesophageal reflux disease) Graves disease H/O gastric ulcer History of gastric ulcer History of UTI Hyperlipidemia Hypertension Hypothyroidism, acquired, autoimmune Incomplete bladder emptying Intrinsic sphincter deficiency (ISD) Lumbar spondylosis Microscopic hematuria Migraine Mild persistent asthma Mixed incontinence Nocturia Osteopenia of lumbar spine Personal history of colonic polyps Recurrent UTI Small bowel stricture Urethral caruncle Urethral lesion Urge incontinence Urinary tract infection Historical - Any problem that you are no longer receiving treatment for. Reflux of urine Patient Survey You may receive a survey via text or e-mail asking about your office visit. Please share your experience with us by completing your survey. We appreciate your feedback and thank you for choosing us for your care. Education Materials Urinary Incontinence Urinary incontinence refers to a [...] the bladder, intestine, and, in women,the uterus. ??? Enlarged prostate in men. The [...] small amount, or constantly dribbling urine (overflowincontinence). ??? Urinating because you cannot get to [...] nerve stimulation). ? For women, using a certified medical technician assistant to prevent urine leaks. This is [...] that can protect the skin from urine. ??? Consider wearing pads or adult diapers. Make sure to change them regularly, and always change them right after experiencing incontinence. General instructions ??? Take nybe-ccb-yzhvvlf and prescription medicines only as told by your health care provider. ??? Use the bathroom about every 3???4 hours, even if you do not feel the need to urinate. Try to emptyyour bladder completely every time. After urinating, wait a minute. Then try to urinate again. ??? Make sure you are in a relaxed position while urinating. ??? If your incontinence is caused by nerve problems, keep a log of the medicines you take and the times you go to the bathroom. ??? Keep all follow-up visits. This is important. Where to find more information ??? National [place] of Diabetes and Digestive and Kidney Diseases: www.niddk.nih.gov ??? [place] [employer]: www.urologyhealth.org Contact a health care provider if: ??? You have pain that gets worse. ??? Your incontinence gets worse. Get help right away if: ??? You have a fever or chills. ??? You are unable to urinate. ??? You have redness in your groin area or down your legs. Summary ??? Urinary incontinence refers to a condition in which a person is unable to control where and when topass urine. ??? This condition may be caused by medicines, infection, weak bladder muscles, weak pelvic floor muscles, enlargement of the prostate (in men), or surgery. ??? Factors such as older age, obesity, and childbirth, menopause, neurological diseases, andchronic coughing may increase your risk for developing this condition. ??? Types of urinary incontinence include urge incontinence, stress incontinence, overflow incontinence, and functional incontinence. ??? This condition is usually treated first with [...] provider. Document Revised: 10/07/2020 Document Reviewed: 10/07/2020 [employer] Patient Education ??? 2023 [employer]. NURSING PROG Observed: 07/06/2024 1:25 PM Status: COMPLETED Source: [facility] HNO ID: [id number] Author: CAITLYN WILLIAM RN Service: ? Author Type: Registered Nurse Type: Nursing Progress Note Filed: 07/06/2024 13:25 Note Text: Attempted to reach the patient at the contact number that they provided [phone] (home) [phone] (work) . 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 director they must have a responsible adult accompany [...] Number to call with questions or concerns [phone] Number to call to cancel their procedure [phone] MARIA D Giraldo Observed: 07/01/2024 12:00 AM Status: COMPLETED Source: [facility] Telephone (GAPRA3) MUNIRA CHESTER ([id number]) 1950 F Date Time Provider Department 07/01/24 JACQUELINE HONG [facility] During your visit today, we recorded the [...] Assessed Reason for Visit: Education Of Patient/family [264] Patient Question [1477] Cmt: Message sent to referring physician regarding [...] Take by mouth. - vit A/vit C/biotin/zinc/copper (WBQV-[id number]-[id number],VIT A,C-BIOTIN, ORAL) Take by mouth. - aspirin [...] (FLONASE) 50 mcg/actuation nasal spray Use 1 [place] in each nostril once daily. - atorvastatin [...] Encounter Status:Closed by JACQUELINE HONG on 07/01/24 PROGRESS NOTE-PHYSICIAN Observed: 2024 3:58 PM Status: F Source: [facility] Progress Note-Physician Patient: MUNIRA CHESTER Age: 73 years Sex: Female : 1950 Associated Diagnoses: None Author: Jay Jay Valderrama Jr, DO Postoperative Information Postoperative disposition: Postoperative disposition: To PACU. Optimetrix number: Optimetrix number [id number]. Anesthetic utilized: General. Health Status Allergies: Allergic [...] Discharge when meets criteria ( To home ).Result Comment: Electronically Signed By: Jay Jay Valderrama Jr, DO\swati\Date and Time Signed: 06/04/24 13:19 EDT DISCHARGE INSTRUCTIONS Observed: 06/02/2024 9:[address] atus: F Source: [facility] Discharge Instructions MUNIRA CHESTER :1950 Visit Date:06/02/2024 Inpatient [...] spray) fluticasone nasal (fluticasone 0.05 mg/inh Nasal [place]) fluticasone-vilanterol (Breo Ellipta 200 mcg-25 mcg/inh inhalation [...] up in 1 month for PVR Where: [facility] Eder Mccann, [address] [address] [phone] Business (1) Medications What How Much When Why Instructions Next Dose New cephalexin (Keflex 500 mg Cap) 1 Capsules By Mouth Every 12 hours Duration: 4 Days Post procedure Pickup at [facility] Unchanged albuterol (ProAir HFA 90 mcg/ [...] fluticasone nasal (fluticasone 0.05 mg/ inh Nasal [place]) 2 Sprays Nasal Inhalation Every day Unchanged [...] H/O gastric ulcer BMI 29.0-29.9,adult Pharmacy Information [facility]: [address] [place], [place] [id number] [phone] Test Results No qualifying data available. Allergies Bee Stings (SOB - Shortness of breath, Hives) amoxicillin (Rash) contrast media (iodine-based) (SOB - Shortness of breath, Hives) sulfa drugs (Angio-oedema) Problems Ongoing - Any problem that you are currently receiving treatment for. Abdominal bloating Acute allergic rhinitis due to pollen Arthritis Asthma Asymptomatic microscopic hematuria Benign essential hypertension Bilateral cataracts Cervical spondylosis Chronic tension headache Duodenal stricture Epigastric pain GERD (gastroesophageal reflux disease) Graves disease H/O gastric ulcer History of gastric ulcer Hyperlipidemia Hypertension Hypothyroidism, acquired, autoimmune Incomplete bladder emptying Intrinsic sphincter deficiency (ISD) Lumbar spondylosis Microscopic hematuria Migraine Mild persistent asthma Mixed incontinence Nocturia Osteopenia of lumbar spine Personal history of colonic polyps Recurrent UTI Small bowel stricture Urethral caruncle Urethral lesion Urinary tract infection Historical - Any problem that you are no longer receiving treatment for. Reflux of urine Devices Implanted/Removed This Visit Notice: You have devices implanted this visit that may not be MRI compatible. Implanted CYSTOSCOPY Urethra [employer] HYDROGEL (2), 06/02/2024 Education Materials [facility] [place], [place] Post-Operative Instructions for [employer] Congratulations on [...] may recommend a warm bath and/or an ytti-uwu-nqhxqvr pain medication to reduce discomfort. ??? If [...] for acomplete list of instructions. ??? 2020 [employer]. All rights reserved. This material contains registered trademarks, trade names, and brand names of [employer]. [phone] 02/2021 [employer] , [place] [address] [email or web address] Common Emergency Awareness Tips IS IT A STROKE? Act FAST and Check for these signs: FACE Does the face look uneven? ARM Does one arm drift down? SPEECH Does their speech sound strange? TIME Call at any sign of stroke Heart Attack Signs Chest discomfort: Most heart attacks involve discomfort in the center of the chest and lasts more than a few minutes, or goes away and comes back. It can feel like uncomfortable pressure, squeezing, fullness or pain. Discomfort in upper body: Symptoms can include pain or discomfort in one or both arms, back, neck, jaw or stomach. Shortness of breath: With or without discomfort. Other signs: Breaking out in a cold sweat, nausea, or lightheaded. Remember, MINUTES DO MATTER. If you experience any of these heart attack warning signs, call to get immediate medical attention! Patient Survey You may receive a survey in the mail asking you about your stay with us. We want to hear from you, please share your experience with us by completing your survey. Thank you for choosing [facility]. Eber Award Nomination The EBER (Diseases Attacking the Immune SYstem) Award is an international recognition program thathonors and celebrates the skillful, compassionate care nurses provide every day. Anyone who experiences or observes amazing care being provided by a nurse is encouraged to submit a nomination. To nominate your nurse, use your smart phone to scan the QR code below. Patient Portal You may access all of your results and other medical record information on our secure patient portal. If you are not signed up for this yet, please contact [facility] at [phone] to get signed up today. Patient Name: MUNIRA CHESTER I have received this information and my questions have been answered. Patient/Broker Name: Patient/Broker Signature: Relationship to Patient: Witness Name/Signature: Date: Result Comment: Electronically Signed By: Aleyda KILLIAN, Roxanne Mitchell\.melissa\Date and Time Signed: 06/02/24 09:01 EDT PATIENT EDUCATION - TEXT Observed: 06/02 9:00 AM Status: C Source: [facility] Patient Education - Text [facility] [place], [place] Post-Operative Instructions for [employer] Congratulations on [...] may recommend a warm bath and/or an urgp-kax-lmgrghk pain medication to reduce discomfort. ??? If [...] for acomplete list of instructions. ??? 2020 [employer]. All rights reserved. This material contains registered trademarks, trade names, and brand names of [employer]. [phone] 02/2021 [employer] [address] [employer] , [place] [address] [email or web address] OUTPATIENT SURGERY DISCHARGE INSTRUCTION Observed: 06/02/2024 8:43 AM Status: C Source: [facility] Outpatient Surgery Discharge Instruction [address] [address] Patient Discharge Instructions PERSON INFORMATION Name: MUNIRA [...] Follow up: With: Address: When: Asuncion Buchanan [address] [place] [address] [place], [place] [address], [address] [address] [phone] Business (1) Comments: Call to schedule your follow up in 1 month for PVR Pharmacy Information: You may receive a survey from [employer] asking you to rate your care experience. Your feedback is important and will help us understand what we do well and how we can improve the quality of care we provide to you, your loved ones and our community. It???s an honor to serve you. Thank you for choosing [facility] HERE ARE THE MEDICATION CHANGES THAT OCCURRED DURING YOUR HOSPITAL STAY New Medications [facility], [address] [place], [place] [id number], [phone] cephalexin (Keflex 500 mg Cap) 1 Capsules [...] day. fluticasone nasal (fluticasone 0.05 mg/inh Nasal [place]) 2 Sprays Nasal Inhalation every day. fluticasone [...] 1. PATIENT EDUCATION INFORMATION Instructions: [facility] [place], [place] Post-Operative Instructions for Bulkamid Congratulations on [...] may recommend a warm bath and/or an pkge-akk-jyijpjq pain medication to reduce discomfort. ??? If [...] for acomplete list of instructions. ??? 2020 [employer]. All rights reserved. This material contains registered trademarks, trade names, and brand names of [employer]. [phone] 02/2021 [employer] , [place] [address] [email or web address] Medication Leaflets: INPATIENT PATIENT SUMMARY Observed: 05/16 8:43 AM Status: C Source: [facility] Inpatient Patient Summary [address] [address] [facility] Clinical Discharge Instructions PERSON INFORMATION Name: MUNIRA CHESTER PHYSICIANS Admitting Physician: Asuncion Buchanan MD Attending Physician: Asuncion Buchanan MD PCP: ANDREA GOLDEN DO Discharge Diagnosis: Intrinsic sphincter deficiency (ISD) Comment: PATIENT EDUCATION INFORMATION Instructions: Lue - Bulkamid Post-Op Instructions (CUSTOM) Medication Leaflets: Follow up: With: Address: When: Asuncion Buchanan [address] [place] [address] [phone] [facility] (1) Comments: Call to schedule your follow up in 1 month for PVR MEDICATION LIST New Medications [facility], [address] [place], [place] [phone], [phone] cephalexin (Keflex 500 mg Cap) 1 Capsules [...] day. fluticasone nasal (fluticasone 0.05 mg/inh Nasal [place]) 2 Sprays Nasal Inhalation every day. fluticasone [...] By Mouth every day. Refills: 1. Comment: OPERATIVE REPORT Observed: 06/02/2024 8:43 AM Status: F Source: [facility] Operative Report Patient: MUNIRA CHESTER Age: 73 years Sex: Female : 1950 Associated Diagnoses: None Author: Asuncion Buchanan MD Procedure Procedure Date: 06/02/2024. Confirmed: patient, procedure, site, safety procedures followed. Performed by: Asuncion Buchanan MD, anesthesiologist (Cyrus Lara CRNA). Type of procedure: Type of procedure: Cystoscopy, injection of urethral bulking agent (Bulkamid) CPT 59807. . 73-year-old female with a history of [...] extend into the bladder until the 2cm christopher on the needle is visible. The Bulkamid [...] and Plan Diagnosis Intrinsic sphincter deficiency (ISD) (PJC70-KZ N36.42, Discharge, Medical). Diagnosis Intrinsic sphincter deficiency (ISD) (FGA65-WX N36.42, Discharge, Medical). Result Comment: Electronically Signed By: Asuncion Buchanan MD\.br\Date and Time Signed: 06/02/24 08:46EDT MAIN OR PACU I RECORD Observed: 06/02/2024 8:22 AM Sta tus: F Source: [facility] Main OR PACU I Record PACU Phase I Document Type FT Summary Primary Physician: Asuncion Buchanan MD Finalized Date/Time: 06/02/24 09:13:02 Pt. Name: MUNIRA CHESTER/Sex: 1950 Female Med Rec #: [id number] Physician: Asuncion Buchanan MD Financial #: [id number] Pt. Type: A Room/Bed: [place] [address] Admit/Disch: 06/02/24 05:52:59 - Institution: Case Times [...] Signed By: Shruthi Cabezas RN 06/02/24 09:13 MAIN OR PACU II RECORD Observed: 06/02/2024 8:[address] atus: F Source: [facility] Main OR PACU II Record PACU Phase II Document Type FT Summary Primary Physician: Asuncion Buchanan MD Finalized Date/Time: 06/02/24 10:20:05 Pt. Name: CHESTERMUNIRA/Sex: 1950 Female Med Rec #: [id number] Physician: Asuncion Buchanan MD Financial #: [id number] Pt. Type: A Room/Bed: [place] [address] Admit/Disch: 06/02/24 05:52:59 - Institution: Case Times [...] Signed By: Roxanne Maynard RN 06/02/24 10:20 MAIN OR INTRAOPERATIVE RECORD Observed: 06/02/2024 8:22 AM Status: C Source: [facility] Main OR Intraoperative Recor d IntraOp Document Type FT Summary Primary Physician: Asuncion Buchanan MD Finalized Date/Time: 06/03/24 11:56:15 Pt. Name: MUNIRA CHESTER/Sex: 1950 Female Med Rec #: [id number] Physician: Asuncion Buchanan MD Financial #: [id number] Pt. Type: A Room/Bed: [place] [address] Admit/Disch: 06/02/24 05:52:59 - 06/02/24 10:10:00 Institution: [...] Attendee Marco TURNER, Cyrus Buchanan MD, Asuncion Samano RN, Luz Elena Walden Role Performed JOHNNY Surgeon - Primary Door Liner - Primary Time In 06/02/24 08:11:00 06/02/24 08:11:00 06/02/24 08:11:00 Time Out 06/02/24 08:34:00 06/02/24 08:34:00 06/02/24 08:34:00 Procedure CYSTOSCOPY(.) CYSTOSCOPY(.) CYSTOSCOPY(.) Comments DR. VALDERRAMA SUPERVISING Last Modified By: Mars KILLIAN, Luz Elena Samano RN, Luz Elena Samano RN, Luz Elena Walden 06/02/24 Holly Walden 06/02/24 Holly Walden 06/02/24 08:34:38 08:34:38 08:34:38 Entry 4 Case Attendee Lucas Harper Role Performed Scrub - Primary Time In 06/02/24 08:11:00 Time Out 06/02/24 08:34:00 Procedure CYSTOSCOPY(.) Comments ALF LOPEZ, RADIOGRAPHER STUDENT FOLLOWING Last Modified By: Luz Elena Samano RN 06/02/24 08:34:38 Perioperative Protocols FT Pre-Care Text: [...] Dewayne VILLEGAS, Asuncion London, Given Participants Cyrus Lara CRNA, Ferrer RN, Meredith Duke Kendall R Time Out Complete 06/02/24 08:22:00 Outcomes Met? Yes Last Modified By: Luz Elena Samano RN 06/02/24 08:24:59 Post-Care Text: The patient is free from signs and symptoms of injury caused by extraneous objects Allergy Information FT Pre-Care Text: Verifies allergies Entry 1 Allergies Reviewed? Yes Allergies Reviewed Self/Patient With Outcomes Met? Yes Last Modified By: Luz Elena Samano RN 06/02/24 07:58:48 Post-Care Text: The patient received appropriate medication(s) safely administered during the perioperative period Surgical Procedures FT Entry 1 Procedure Description Procedure CYSTOSCOPY Modifiers . Surgeon Description CYSTOSCOPY, BULKAMID Primary Procedure Yes Primary Surgeon Dewayne VILLEGAS, Asuncion London Start 06/02/24 08:22:00 Stop 06/02/24 08:30:00 Anesthesia Type General Surgical Service Urology Wound Class 2 - Clean-Contaminated Last Modified By: Luz Elena Samano RN 06/02/24 08:30:19 General Case Data FT [...] and tissue Entry 1 Skin Integrity Intact, [place], Warm, & Skin Abnormality Yes Dry, Red Abnormality Location REDNESS ON BILATERAL Outcomes Met? Yes GROIN AREA Last Modified By: Luz Elena Samano RN 06/02/24 08:25:32 Post-Care Text: The patient [...] Position Tucked and Padded at Left Leg Position Secured in Stirrup Side Right Leg Position Secured in Stirrup Positioning Device Stirrups Yellow Fins, Pillow Under Head Large, Blankets Folded Press Points Checked Yes By Luz Elena Samano RN, Cyrus Lara CRNA, Lue MD, Asuncion London, Lucas Harper Outcomes Met? Yes Last Modified By: Luz Elena Samano RN 06/02/24 08:26:06 Post-Care Text: The patient is free from signs and symptoms of injury related to positioning Patient Care Devices FT Pre-Care Text: Implements protective measures to prevent skin/ tissue injury due to thermal or mechanical sources Entry 1 Entry 2 Entry 3 Equipment Type MISTRAL FORCED AIR MONITOR CHARGE SURGERY PADDED STIRRUPS WARMING SYSTEM UNIT Equipment Number [id number] Equipment Setting 43C/HIGH Outcomes Met? Yes Yes Yes Last Modified By: Mars KILLIAN, Luz Elena Samano RN, Luz Elena Samano RN, Luz Elena Walden 06/02/24 Holly P 06/02/24 Holly P 06/02/24 07:59:26 07:59:26 07:59:26 Entry 4 Entry 5 Equipment Type VENA FLOW UNIT VIDEO SYSTEM Equipment Number [id number] OR [id number] Equipment Setting Outcomes Met? Yes Yes Last Modified By: Mars KILLIAN, Luz Elena Samano RN, Luz Elena Walden 06/02/24 Holly P 06/02/24 07:59:26 07:59:26 Post-Care Text: The patient is free from signs and symptoms of injury caused by extraneous objects Transport To OR FT Pre-Care Text: Transports according to individual needs. Evaluates for signs and symptoms of skin and tissue injury as a result of transfer or transport Entry 1 Via Cart By Mars KILLIAN, Luz Elena Walden Safety Precautions Side Rails Up Outcomes Met? Yes Last Modified By: Luz Elena Samano RN 06/02/24 08:26:16 Post-Care Text: The patient is free from signs and symptoms of injury related to transfer/transport Counts Verification FT Pre-Care Text: Performs required counts Entry 1 Entry 2 Procedure(s) CYSTOSCOPY(.) CYSTOSCOPY(.) Type Initial Final Items Instruments Instruments Status Correct Correct Time 06/02/24 08:22:00 06/02/24 08:30:00 By Lucas Harper Kendall R Outcomes Met? Yes Yes Last Modified By: Mars KILLIAN, Luz Elena Samano RN, Luz Elena Walden 06/02/24 Holly Walden 06/02/24 08:26:25 08:47:35 Post-Care Text: The patient is free from signs and symptoms of injury caused by extraneous objects Skin Prep FT Pre-Care Text: Performs skin preparations Entry 1 Procedure CYSTOSCOPY(.) Prep Area perineum Prep Agents Hibiclens Hair Removal Methods Not Indicated By Lucas Harper Outcomes Met? Yes Last Modified By: Luz Elena Samano RN 06/02/24 08:26:37 Post-Care Text: The patient is free from signs and symptoms of infection Departure From OR FT Pre-Care Text: Transports according to individual needs. Evaluates for signs and symptoms of skin and tissue injury as a result of transfer or transport. Entry 1 Via Cart Safety Precautions Side Rails Up PostOp Destination PACU Transported By Luz Elena Samano RN Patient Status Stable Report Given Shruthi Cabezas RN To/Hand Off Communication Skin. Condition Intact, [place], Warm, & Description UNCHANGED FROM Dry PRE-OPERATIVE STATUS Airway Maintenance Oxygen in Use? Yes Airway Device Simple Mask Flow Rate 8 L/min Outcomes Met? Yes Last Modified By: Luz Elena Samano RN 06/02/24 08:48:06 Post-Care Text: The patient is free from signs and symptoms of injury related to transfer/transport General Comments: VERBAL AND WRITTEN REPORT GIVEN TO FARM SPECIALISTMARIA D SAMANO RN Medication Administration FT Pre-Care Text: Verifies allergies, administers prescribed medications and solutions, administers prescribed antibiotic therapy and immunizing agents as ordered, evaluates response to medications Administers prescribed medications and solutions Entry 1 Route of Admin Field Expiration Date Yes Verified Ordered By Asuncion Buchanan MD Transcribed/To Luz Elena Samano RN By Holly Walden Administered By Asuncion Buchanan MD Outcomes Met? Yes Last Modified By: Luz Elena Samano RN 06/02/24 08:28:59 Post-Care Text: The patient received appropriate medication(s) safely administered during the perioperative period For [place] please see scanned medication reconcilliation form for medications used at the field during the procedure. 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 Yes Last Modified By: Luz Elena Samano RN 06/02/24 08:28:19 Post-Care Text: The patient is free from signs and symptoms of injury caused by extraneous objects Temperature Control Entry 1 Temperature Control BLANKET MISTRAL AIR Quantity 1 Aid TORSO Fluid/[place] Unit Mistral warming system Setting 43C/HIGH Body Site Upper anterior torso Last Modified By: Luz Elena Samano RN 06/02/24 08:28:48 Sign Out FT Entry 1 Before Patient Leaves OR Nurse verbally Yes Nurse verbally Yes confirms with the confirms with the team the name of team that the procedure(s) instrument, sponge, recorded and needle counts are correct (or N/A) Nurse verbally n/a Nurse verbally n/a confirms with the confirms with the team how the team whether there specimen is labeled are any equipment (including patient problems to be name), if applicable addressed Sign Out Complete 06/02/24 08:30:00 Last Modified By: Luz Elena Samano RN 06/02/24 08:30:21 Case Comments <None> Finalized By: Rica Carpenter CST Document Signatures Signed By: Rica Carpenter CST 06/03/24 10:48 Luz Elena Samano RN 06/02/24 08:48 Rica Carpenter CST 06/03/24 11:56 Unfinalized History Date/Time Username Reason for Unfinalizing Freetext Reason for Unfinalizing 06/03/24 09:58 [id number] Other - See Nurses Notes 06/03/24 Chart opened to review and send charges LRoth CSFA 06/03/24 11:56 [id number] Other - See Nurses Notes MAIN OR PREOPERATIVE RECORD Observed: 8:22 AM Status: F Source: [facility] Main OR Preoperative Record PreOp Document Type FT Summary Primary Physician: Asuncion Buchanan MD Finalized Date/Time: 06/02/24 08:29:55 Pt. Name: MUNIRA CHESTER/Sex: 1950 Female Med Rec #: [id number] Physician: Asuncion Buchanan MD Financial #: [id number] Pt. Type: A Room/Bed: [facility] Admit/Disch: 06/02/24 05:52:59 - Institution: Case Times PreOp FT Pre-Care Text: Verifies consent for planned procedure, identifies individual values and wishes concerning care, includes family members in perioperative teaching Entry 1 Patient Times. In Pre Surgery 06/02/24 06:00:00 Out Pre Surgery 06/02/24 08:09:00 Outcomes Met? Yes Last Modified By: Luz Elena Samano RN 06/02/24 08:29:54 Post-Care Text: The patient participates in decisions affecting his or her perioperative plan of care Finalized By: Luz Elena Samano RN Document Signatures Signed By: Luz Elena Samano RN 06/02/24 08:29 PROGRESS NOTE-PHYSICIAN Observed: 2024 7:04 AM Status: F Source: 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 / Confirmed Recurrent UTI / SNOMED CT 031101052 / Confirmed Osteopenia of lumbar spine / SNOMED CT 317841735 / Confirmed Nocturia / SNOMED CT 444386996 / Confirmed Mild persistent asthma / SNOMED CT 9732776730 / Confirmed Migraine / SNOMED CT 47626680 / Confirmed Microscopic hematuria / SNOMED CT 877643570 / Confirmed Lumbar spondylosis / SNOMED CT 728164610 / Confirmed Urethral lesion / SNOMED CT 4691837599 / Confirmed Mixed incontinence / SNOMED CT 59899377 / Confirmed Hypertension / SNOMED CT 6014031682 / Confirmed Hyperlipidemia / SNOMED CT 06393017 / Confirmed Personal history of colonic polyps / SNOMED CT 5641280636 / Confirmed History of gastric ulcer / SNOMED CT 604111524 / Confirmed H/O gastric ulcer / SNOMED CT 371597955 / Confirmed Graves disease / SNOMED CT 306360638 / Confirmed GERD (gastroesophageal reflux disease) / SNOMED CT 199708390 / Confirmed Incomplete bladder emptying / SNOMED CT 128065376 / Confirmed Epigastric pain / SNOMED CT 260441825 / Confirmed Chronic tension headache / SNOMED CT 168017600 / Confirmed Cervical spondylosis / SNOMED CT 3615165188 / Confirmed Bilateral cataracts / SNOMED CT 885910643 / Confirmed Benign essential hypertension / SNOMED CT 9160064 / Confirmed Hypothyroidism, acquired, autoimmune / SNOMED CT 309557883 / Confirmed Asymptomatic microscopic hematuria / SNOMED CT 8209306542 / Confirmed Asthma / SNOMED CT 552184291 / Confirmed Arthritis / SNOMED CT 1247867 / Confirmed Acute allergic rhinitis due to pollen / SNOMED CT 41504203 / Confirmed Abdominal bloating / SNOMED CT 691494564 / Confirmed Resolved: Reflux of urine / SNOMED CT 3564898944 Histories Procedure history: Cystoscopy, urethral biopsy ([id number]) on 04/07/2024 at 73 Years. Esophagogastroduodenoscopy (433066763) on 05/22/2023 at 72 Years. Colonoscopy ([id number]) on 05/22/2023 at 72 Years. Colonoscopy ([id number]) on 09/07/2019 at 69 Years. EGD - Esophagogastroduodenoscopy ([id number]) on 09/07/2019 at 69 Years. EGD - Esophagogastroduodenoscopy (8222152457) on 01/16/2015 at 64 Years. Colonoscopy ([id number]) on 01/16/2015 at 64 Years. Comments: 08/31/2019 16:19 EDT - Yung ALDRIDGE, Tonie Esqueda normal EGD - Esophagogastroduodenoscopy (6991934266) on 08/17/2011 at 61 Years. EGD - Esophagogastroduodenoscopy (1339737643) on 05/17/2011 at 60 Years. Laparoscopic cholecystectomy (60613511) on 06/16/2010 at 59 Years. Colonoscopy ([id number]) on 01/16/2010 at 59 Years. section (60622805). Rotator cuff repair (981381282). Tubal ligation (647441604). Cataracts (6760130875). Foot (88903455). Dilation and curettage (20770441). Thyroidectomy (54582661). Right wrist surgery (31828280). Social History Social & Psychosocial Habits Alcohol [...] adequate air exchange. Cardiovascular: Regular rhythm. Plan [place] [employer]esthesi[employer] (ASA) physical status classification: Class III. Anesthetic Preoperative Plan: Anesthesia General.Result Comment: Electronically Signed By: Jay Jay Valderrama Jr, DO\swati\Date and Time Signed: 06/04/24 13:21 EDT ALLIE Observed: 05/22/2024 12:00 AM Status: COMPLETED Source: [facility] Telephone ([id number]) MUNIRA CHESTER ([id number]) 1950 F Date Time Provider Department 05/22/24 [...] Fully Assessed Reason for Visit: Patient Question [1737] Prescriptions as of 05/25/2024 - amLODIPine (NORVASC) [...] Take by mouth. - vit A/vit C/biotin/zinc/copper (HBYM-BHFQ-AIHD,VIT A,C-BIOTIN, ORAL) Take by mouth. - aspirin [...] (FLONASE) 50 mcg/actuation nasal spray Use 1 [place] in each nostril once daily. - atorvastatin [...] Encounter Status:Closed by HOLLIS MCKEON on 05/22/24 UA WITH CULT RFLX Collected: 5 7:49 AM Status: F Source: [facility] TYPE CODE TESTS RESULT OUT OF RANGE REFERENCE UNITS LAB 9194-2([facility]) CLASS:TYPE:PT: URINE COLLECTION METHOD:NOM:* Clean Catch Normal LAB 26775-5([facility]) COLOR:TYPE:PT: URINE:NOM:AUTO Yellow Normal Yellow Result Comment: Microscopic readings are only performed on those samples that meet specific criteria set forth by [facility]. LAB 19775-4([facility]) CLARITY:TYPE:P T:URINE:NOM: Turbid Abnormal Clear LAB 5811-5([facility]) SPECIFIC GRAVITY:RDEN:P T:URINE:SEMIQN :TEST STRIP 1.034 Unknown 1.005-1.030 LAB 5803-2([facility]) PH:LSCNC:PT:UR INE:SEMIQN:DIONNA T STRIP 5.5 Unknown 5.0-9.0 LAB 10674-9([facility]) PROTEIN:PRTHR: PT:URINE:ORD:T EST STRIP 1+ Abnormal Negative mg/dL LAB 75440-7([facility]) GLUCOSE:PRTHR: PT:URINE:ORD:T EST STRIP Negative Normal Negative mg/dL LAB 00222-3(INC) KETONES:PRTHR: PT:URINE:ORD:T EST STRIP.AUTOMATE D Negative Normal Negative mg/dL LAB 72763-8([facility]) BILIRUBIN:PRTH R:PT:URINE:ORD :TEST STRIP.AUTOMATE D Negative Normal Negative mg/dL LAB 12432-3([facility]) HEMOGLOBIN:MCN C:PT:URINE:EVE IQN:TEST STRIP.AUTOMATE D Negative Normal Negative mg/dL LAB 74814-4(INC) NITRITE:PRTHR: PT:URINE:ORD:T EST STRIP.AUTOMATE D Negative Normal Negative mg/dL LAB 93973-2([facility]) UROBILINOGEN:M CNC:PT:URINE:S EMIQN:TEST STRIP 2 mg/dL Abnormal Negative mg/dL LAB 34655-9(INC) LEUKOCYTE ESTERASE:PRTHR :PT:URINE:ORD: TEST STRIP.AUTOMATE D 25 Rosemarie/uL Normal Negative CD:88404 60334 LAB 57432-0([facility]) LEUKOCYTES:TERRIE IC:PT:URINE SED:QN:AUTOMAT ED COUNT 6-15 Abnormal 0-5 CD:25355 06885 LAB 20907-1(LOINC) EPITHELIAL CELLS.SQUAMOUS :NARIC:PT:URIN E SED:QN:AUTOMAT ED COUNT 0-2 Unknown CD:00418 41827 LAB 09490-5(LOINC) BACTERIA:PRTHR :PT:URINE:ORD: AUTOMATED 2+ Abnormal Trace /HPF LAB 70768-2(LOINC) MUCUS:PRTHR:PT :URINE:ORD:AUT OMATED 4+ Abnormal Negative CD:46001 66096 LAB 58027-7(LOINC) HYALINE CASTS:PRTHR:PT :URINE SED:ORD:MICROS COPY.LIGHT 4-10 Abnormal 0-3 CD:26341 84086 LAB 64235-6(LOINC) CALCIUM OXALATE CRYSTALS:PRTHR :PT:URINE:ORD: COMPUTER ASSISTED Present Abnormal CD:27749 69219 Performed By: [facility] [address] [place] [address]1999 C URINE Observed: 05/20/2024 7:49 AM Status: F Source: [facility] Microbiology PROCEDURE: Urine Culture [R1] SOURCE: U CleanCatch BODY SITE: COLLECTED DATE/TIME: 05/20/2024 07:49 EST RECEIVED DATE/TIME: 05/20/2024 11:21 EST START DATE/TIME: 05/20/2024 11:21 EST FREE TEXT SOURCE: Dewayne VILLEGAS, Asuncion Buchanan MD, Asuncion London FINAL REPORTS Final Report [] Verified Date/Time: 05/22/2024 07:12 EST 6,000 cfu/ml Mixed skin contaminants Performing Locations R1: This test was performed at: [facility], [address] [place] [address], [address]- , , [id number] By: [facility] [address] [place] [address] C URINE Observed: 05/20/2024 7:49 AM Status: F Source: [facility] Microbiology PROCEDURE: Urine Culture [R1] SOURCE: U CleanCatch BODY SITE: COLLECTED DATE/TIME: 05/20/2024 07:49 EST RECEIVED DATE/TIME: 05/20/2024 11:21 EST START DATE/TIME: 05/20/2024 11:21 EST FREE TEXT SOURCE: Dewayne VILLEGAS, Asuncion Buchanan MD, Asuncion London FINAL REPORTS Final Report [] Verified Date/Time: 05/22/2024 07:12 EST 6,000 cfu/ml Mixed skin contaminants Performing Locations R1: This test was performed at: [facility], [address] [place] [address], [address]- , , Jaobvywdk By: [facility] [address] [place] [address] AMBULATORY VISIT SUMMARY Observed: 04/22 3:35 PM Status: F Source: [facility] Ambulatory Visit Summary MUNIRA CHESTER :1950 Visit Date:04/22/2024 [...] spray) fluticasone nasal (fluticasone 0.05 mg/inh Nasal [place]) fluticasone-vilanterol (Breo Ellipta 200 mcg-25 mcg/inh inhalation [...] Surgical Services Saturday 9:30 AM EDT [facility] You Need to Schedule the Following Appointments Follow Up with Dewayen VILLEGAS, RANDAL Arizmendi, URO When: Where: Medications [...] fluticasone nasal (fluticasone 0.05 mg/ inh Nasal [place]) 2 Sprays Nasal Inhalation Every day Contact [...] physician if questions or concerns Unchanged multivitamin with minerals (Calcium with Vitamin D and Minerals oral tablet) By Mouth 2 times a day Contact prescribing physician if questions or concerns Unchanged orphenadrine (orphenadrine compounding powder) As needed for Migraine headache Contact prescribing physician if questions or concerns Unchanged oxybutynin (oxybutynin 5 mg Tab) 1 Tablets By Mouth 3 times a day as needed for bladder spasms Contact prescribing physician if questions or concerns Unchanged pantoprazole (Pantoprazole [address] Tab) 1 Tablets By Mouth Every day Epigastric pain Abdominal bloating GERD (gastroesophageal reflux disease) H/O gastric ulcer BMI 29.0-29.9,adult Epigastric pain Abdominal bloating GERD (gastroesophageal reflux disease) H/O gastric ulcer BMI 29.0-29.9,adult Contact prescribing physician if questions or concerns Allergies Bee Stings (SOB - Shortness of breath, Hives) amoxicillin (Rash) contrast media (iodine-based) (SOB - Shortness of breath, Hives) sulfa drugs (Angio-oedema) Problems Ongoing - Any problem that you are currently receiving treatment for. Abdominal bloating Acute allergic rhinitis due to pollen Arthritis Asthma Asymptomatic microscopic hematuria Benign essential hypertension Bilateral cataracts Cervical spondylosis Chronic tension headache Duodenal stricture Epigastric pain GERD (gastroesophageal reflux disease) Graves disease H/O gastric ulcer History of gastric ulcer Hyperlipidemia Hypertension Hypothyroidism, acquired, autoimmune Incomplete bladder emptying Intrinsic sphincter deficiency (ISD) Lumbar spondylosis Microscopic hematuria Migraine Mild persistent asthma Mixed incontinence Nocturia Osteopenia of lumbar spine Personal history of colonic polyps Recurrent UTI Small bowel stricture Urethral caruncle Urethral lesion Urinary tract infection Historical - Any problem that you are no longer receiving treatment for. Reflux of urine Patient Survey You may receive a survey via text or e-mail asking about your office visit. Please share your experience with us by completing your survey. We appreciate your feedback and thank you for choosing us for your care. Education Materials Urinary Incontinence Urinary incontinence refers to a [...] the bladder, intestine, and, in women,the uterus. ??? Enlarged prostate in men. The [...] small amount, or constantly dribbling urine (overflowincontinence). ??? Urinating because you cannot get to [...] nerve stimulation). ? For women, using a certified medical technician assistant to prevent urine leaks. This is [...] that can protect the skin from urine. ??? Consider wearing pads or adult diapers. Make sure to change them regularly, and always change them right after experiencing incontinence. General instructions ??? Take qkcx-iox-sxxyyxl and prescription medicines only as told by your health care provider. ??? Use the bathroom about every 3???4 hours, even if you do not feel the need to urinate. Try to emptyyour bladder completely every time. After urinating, wait a minute. Then try to urinate again. ??? Make sure you are in a relaxed position while urinating. ??? If your incontinence is caused by nerve problems, keep a log of the medicines you take and the times you go to the bathroom. ??? Keep all follow-up visits. This is important. Where to find more information ??? National [place] of Diabetes and Digestive and Kidney Diseases: www.niddk.nih.gov ??? [place] [employer] Association: www.urologyhealth.org Contact a health care provider if: ??? You have pain that gets worse. ??? Your incontinence gets worse. Get help right away if: ??? You have a fever or chills. ??? You are unable to urinate. ??? You have redness in your groin area or down your legs. Summary ??? Urinary incontinence refers to a condition in which a person is unable to control where and when topass urine. ??? This condition may be caused by medicines, infection, weak bladder muscles, weak pelvic floor muscles, enlargement of the prostate (in men), or surgery. ??? Factors such as older age, obesity, and childbirth, menopause, neurological diseases, andchronic coughing may increase your risk for developing this condition. ??? Types of urinary incontinence include urge incontinence, stress incontinence, overflow incontinence, and functional incontinence. ??? This condition is usually treated first with [...] provider. Document Revised: 10/07/2020 Document Reviewed: 10/07/2020 [employer] Patient Education ??? 2023 [employer]. UROLOGY OFFICE/CLINIC NOTE Observed: 07/2024 11:30 AM Status: F Source: [facility] Urology Office/Clinic Note Chief Complaint 2 [place] path review HPI Staff 73yr old female [...] Estrace cream -See #1 4. Recurrent UTI (N39.0: Urinary tract infection, site not specified) UCx 12/27/23 - negative. UA today shows large blood and trace leuks. She continues post coital Macrobid 100mg. Works well when she remembers to take it. -Cont Estrace cream Follow-up With When Contact Information Dewayne VILLEGAS, Asuncion London, URL, URO Additional Instructions: Schedule [employer] Patient Education Urinary Incontinence I, Ailyn Aranda, personally scribed for Dr. Buchanan on 04/22/2024 11:32:47. . Documentation recorded by the scribe, Ailyn Aranda, accurately reflects the services(s) I performed and decisions made by me. Authenticated by Dr. Buchanan on 04/22/2024 11:54:36. Problem List/Past Medical History Ongoing Abdominal bloating Acute allergic rhinitis due to pollen Arthritis Asthma Asymptomatic microscopic hematuria Benign essential hypertension Bilateral cataracts Cervical spondylosis Chronic tension headache Duodenal stricture Epigastric pain GERD (gastroesophageal reflux disease) Graves disease H/O gastric ulcer History of gastric ulcer Hyperlipidemia Hypertension Hypothyroidism, acquired, autoimmune Incomplete bladder emptying Intrinsic sphincter deficiency (ISD) Lumbar spondylosis Microscopic hematuria Migraine Mild persistent asthma Mixed incontinence Nocturia Osteopenia of lumbar spine Personal history of colonic polyps Recurrent UTI Small bowel stricture Urethral caruncle Urethral lesion Urinary tract infection Historical Reflux of urine Procedure/Surgical History Cystoscopy (04/07/2024), Colonoscopy (05/22/2023), Esophagogastroduodenoscopy (05/22/2023), Colonoscopy (09/07/2019), EGD - Esophagogastroduodenoscopy (09/07/2019), Colonoscopy (01/16/2015), EGD - Esophagogastroduodenoscopy (01/16/2015), EGD - Esophagogastroduodenoscopy (08/17/2011), EGD - Esophagog astroduodenoscopy (05/17/2011), Laparoscopic cholecystectomy (06/16/2010), Colonoscopy (01/16/2010), Cataracts, section, Dilation and curettage, Foot, Right wrist, Rotator cuff repair, Thyroidectomy, Tubal ligation. Medications amLODIPine 5 mg Tab, 5 mg= 1 tab(s), Oral, Daily atorvastatin 10 mg Tab, 10 mg= 1 tab(s), Oral, Daily Breo Ellipta 200 mcg-25 mcg/inh inhalation powder, 1 inh Calcium with Vitamin D and Minerals oral tablet, Oral, BID EpiPen 2-Giovani, 0.3 mg, IntraMuscular, Once, PRN estradiol 0.1 mg/g Vag Crm, See Instructions famotidine 20 mg Tab, Oral, BID Ferrex-150, 150 mg, Oral, Every other day fluticasone 0.05 mg/inh Nasal [place], 2 spray(s), Nasal, Daily Fosamax 70 mg Tab, 70 mg= 1 tab(s), Oral, qWeek Hair, Skin & Nails 5 mg oral capsule, Oral, Daily levothyroxine 100 mcg (0.1 mg) Tab, 100 mcg= 1 tab(s), Oral, Daily Macrobid 100 mg Cap, 100 mg= 1 cap(s), Oral, As Directed, 3 refills montelukast 10 mg Tab, 10 mg= 1 tab(s), Oral, qPM Multi Vitamins oral tablet, 1 tab(s), Oral, Daily orphenadrine compounding powder, PRN oxybutynin 5 mg Tab, 5 mg= 1 tab(s), Oral, TID, PRN Pantoprazole [address] Tab, 40 mg= 1 tab(s), Oral, Daily, 1 refills ProAir HFA 90 mcg/inh inhalation aerosol, 2 puff(s), Inhalation, q4hr, PRN Vitamin D3, Oral, Daily Xhance 93 mcg/inh nasal spray, BID Zyrtec, Daily Allergies Bee Stings (SOB - Shortness of breath, Hives) amoxicillin (Rash) contrast media (iodine-based) (SOB - Shortness of breath, Hives) sulfa drugs (Angio-oedema) Social History Alcohol - Denies Alcohol Use, 09/04/2019 Never., 02/20/2024 Substance Abuse - Denies Substance Abuse, 09/04/2019 Never., 02/20/2024 Tobacco Never (less than 100 in lifetime) Tobacco Use:. Never Smokeless Tobacco Use:. Household tobacco concerns: No., 04/22/2024 Never (less than 100 in lifetime) Tobacco Use:., 02/05/2024 Never (less than 100 in lifetime) Tobacco Use:., 05/30/2023 Family History Diabetes mellitus type 2: Father. Primary malignant neoplasm of female breast: Sister. Primary malignant neoplasm of lung: Mother. Rheumatoid arthritis: Mother. Immunizations Vaccine Date Status Comments influenza virus vaccine, inactivated 12/31/2022 Recorded SARS-CoV-2 (COVID-19) [id number] 12/22/2021 Recorded influenza virus vaccine, inactivated 12/18/2021 [...] Recorded influenza virus vaccine, inactivated 01/04/2016 Recorded Lab Results Ambulatory Point of Care Results Bilirubin Urine Dipstick: Negative (04/22/24 10:44:00) Blood Urine Dipstick: 3+ Large (04/22/24 10:44:00) Glucose Urine Dipstick: Negative (04/22/24 10:44:00) Ketones Urine Dipstick: Trace - 5 mg/dl (04/22/24 10:44:00) Leukocytes Urine Dipstick: Trace (04/22/24 10:44:00) Nitrite Urine Dipstick: Negative (04/22/24 10:44:00) Protein Urine Dipstick: 1+ (30 mg/dl) (04/22/24 10:44:00) Specific [place] Urine Dipstick: 1.025 (04/22/24 10:44:00) Urine Appearance Urine Dipstick: Clear (04/22/24 10:44:00) Urine Color Urine Dipstick: Yellow (04/22/24 10:44:00) Urobilinogen Urine Dipstick: Normal 0.2-1 EU/dl (04/22/24 10:44:00) pH Urine Dipstick: 5.5 (04/22/24 10:44:00)Result Comment: Electronically Signed By: Asuncion Buchanan MD\.br\Date and Time Signed: 04/22/24 11:55 EST\.br\Electronically Co-Signed By: Ailyn Aranda\.br\Date and Time Co- Signed: 04/22/24 11:33 EST PATIENT EDUCATION Observed: 04/22/2024 11:30 AM Status : F Source: [facility] Patient Education Urology Urinary Incontinence Urinary incontinence [...] nerve stimulation). ? For women, using a certified medical technician assistant to prevent urine leaks. This is [...] that can protect the skin from urine. ??? Consider wearing pads or adult diapers. Make sure to change them regularly, and always change them right after experiencing incontinence. General instructions ??? Take poyq-qmc-tqibdoh and prescription medicines only as told by your health care provider. ??? Use the bathroom about every 3?4 hours, even if you do not feel the need to urinate. Try to empty your bladder completely every time. After urinating, wait a minute. Then try to urinate again. ??? Make sure you are in a relaxed position while urinating. ??? If your incontinence is caused by nerve problems, keep a log of the medicines you take and the times you go to the bathroom. ??? Keep all follow-up visits. This is important. Where to find more information ??? National [place] of Diabetes and Digestive and Kidney Diseases: www.niddk.nih.gov ??? [place] [employer] Association: www.urologyhealth.org Contact a health care provider if: ??? You have pain that gets worse. ??? Your incontinence gets worse. Get help right away if: ??? You have a fever or chills. ??? You are unable to urinate. ??? You have redness in your groin area or down your legs. Summary ??? Urinary incontinence refers to a condition in which a person is unable to control where and when to pass urine. ??? This condition may be caused by medicines, infection, weak bladder muscles, weak pelvic floor muscles, enlargement of the prostate (in men), or surgery. ??? Factors such as older age, obesity, and childbirth, menopause, neurological diseases,and chronic coughing may increase your risk for developing this condition. ??? Types of urinary incontinence include urge incontinence, stress incontinence, overflow incontinence, and functional incontinence. ??? This condition is usually treated first with lifestyle and behavioral changes, such as quittingsmoking, eating a healthier diet, and doing regular pelvic floor exercises. Other treatment optionsinclude medicines, bulking agents, medical devices, electrical nerve stimulation, or surgery. This information is not intended to replace advice given to you by your health care provider. Make sure you discuss any questions you have with your health care provider. Document Revised: 10/07/2020 Document Reviewed: 10/07/2020 [employer] Patient Education ? 2023 [employer]. PROGRESS NOTE-PHYSICIAN Observed: 2024 11:30 AM Status: F Source: [facility] Progress Note-Physician Patient: MUNIRA CHESTER Age: 73 years Sex: Female : 1950 Associated Diagnoses: None Author: MD Doug, [facility] Postoperative Information Postoperative disposition: Postoperative disposition: To PACU. Optimetrix number: Optimetrix number [id number]. Anesthetic utilized: General. Health Status Allergies: Allergic [...] Discharge when meets criteria ( To home ).Result Comment: Electronically Signed By: MD Doug, Ahvadim F\.br\Date and Time Signed: 04/07/24 17:50 EST PATIENT EDUCATION - TEXT Observed: 04/07 10:47 AM Status: C Source: [facility] Patient Education - Text White Catheter Care, Female A White catheter is a soft, flexible tube that is placed into the bladder to drain urine. The catheter has a balloon to hold it inside the bladder. A Whiet catheter may be inserted if: ??? 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 6. Keep the drainage bag [...] and call with any concerns. [facility] [place], [place] Post-Operative Instructions *Even though there are [...] bleeding * AZO (phenazopyridine) can be purchased boyv-zdm-ipprqqk for burning with urination. This will make [...] do not hear from us by tomorrow. ([phone] or [phone]) DISCHARGE INSTRUCTIONS Observed: 025 10:40 AM Status: F Source: [facility] Discharge Instructions MUNIRA CHESTER :1950 Visit Date:04/07/2024 Inpatient [...] spray) fluticasone nasal (fluticasone 0.05 mg/inh Nasal [place]) fluticasone-vilanterol (Breo Ellipta 200 mcg-25 mcg/inh inhalation [...] VILLEGAS, Asuncion London Where: [facility] [address] [place] [address] [place] [address]- New Follow Up Appointments after Discharge Follow Up with Asuncion Buchanan When: Comments: Office to call to schedule your follow up: white removal and voiding trial in 1- 2 days once urine is clear. Follow up in 1-2 weeks for pathology review. Where: [address] [place], [place] [address]dict Siobhan, [address] [address]- [phone] Business (1) Medications What How Much When Why Instructions Next Dose New ciprofloxacin (Cipro 500 mg Tab) 1 Tablets By Mouth Every 12 hours Duration: 1 Days Start morning of white removal in 1-2 days Pickup at [facility] New oxybutynin (oxybutynin 5 mg Tab) 1 Tablets By Mouth 3 times a day as needed for bladder spasms Pickup at [facility] Unchanged albuterol (ProAir HFA 90 [...] fluticasone nasal (fluticasone 0.05 mg/ inh Nasal [place]) 2 Sprays Nasal Inhalation Every day Unchanged [...] 1 Tablets By Mouth Every day Unchanged multivitamin with minerals (Calcium with Vitamin D and Minerals oral tablet) By Mouth 2 times a day Unchanged nitrofurantoin (Macrobid 100 mg Cap) [...] H/O gastric ulcer BMI 29.0-29.9,adult Pharmacy Information [facility]: [address], [place] [id number] [phone] Test Results No qualifying data available. Allergies Bee Stings (SOB - Shortness of breath, Hives) amoxicillin (Rash) contrast media (iodine-based) (SOB - Shortness of breath, Hives) sulfa drugs (Angio-oedema) Problems Ongoing - Any problem that you are currently receiving treatment for. Abdominal bloating Acute allergic rhinitis due to [...] stricture Urethral caruncle Urinary tract infection Historical - Any problem that you are no longer receiving treatment for. Reflux of urine Education Materials [facility] [place], [place] Post-Operative Instructions *Even though there are [...] bleeding * AZO (phenazopyridine) can be purchased hiia-ubo-wujrwwt for burning with urination. This will make [...] do not hear from us by tomorrow. ([phone] or [phone]) Common Emergency Awareness Tips IS IT A STROKE? Act FAST and Check for these signs: FACE Does the face look uneven? ARM Does one arm drift down? SPEECH Does their speech sound strange? TIME Call at any sign of stroke Heart Attack Signs Chest discomfort: Most heart attacks involve discomfort in the center of the chest and lasts more than a few minutes, or goes away and comes back. It can feel like uncomfortable pressure, squeezing, fullness or pain. Discomfort in upper body: Symptoms can include pain or discomfort in one or both arms, back, neck, jaw or stomach. Shortness of breath: With or without discomfort. Other signs: Breaking out in a cold sweat, nausea, or lightheaded. Remember, MINUTES DO MATTER. If you experience any of these heart attack warning signs, call to get immediate medical attention! Patient Survey You may receive a survey in the mail asking you about your stay with us. We want to hear from you, please share your experience with us by completing your survey. Thank you for choosing [facility]. Eber Award Nomination The EBER (Diseases Attacking the Immune SYstem) Award is an international recognition program thathonors and celebrates the skillful, compassionate care nurses provide every day. Anyone who experiences or observes amazing care being provided by a nurse is encouraged to submit a nomination. To nominate your nurse, use your smart phone to scan the QR code below. Patient Portal You may access all of your results and other medical record information on our secure patient portal. If you are not signed up for this yet, please contact [facility] at [phone] to get signed up today. Patient Name: MUNIRA CHESTER I have received this information and my questions have been answered. Patient/Broker Name: Patient/Broker Signature: Relationship to Patient: Witness Name/Signature: Date: Result Comment: Electronically Signed By: Regis KILLIAN, Nasrin Mitchell\.br\Date and Time Signed: 04/07/24 10:41 EST OPERATIVE REPORT Observed: 04/07/2024 10:39 AM Status: F Source: [facility] Operative Report Patient: MUNIRA CHESTER Age: 73 [...] We began the procedure using a 22.5 Hong Konger rigid cystoscope, 30 degree lens, and inserted [...] electrocautery was usedto achieve hemostasis. An 18 [place]er White catheter was inserted into the bladder [...] review.. 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 Urethral caruncle (XHI15-UU N36.2, Discharge, Medical). 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 Urethral caruncle (CEA50-BB N36.2, Discharge, Medical).Result Comment: Electronically Signed By: Asuncion Buchanan MD\.br\Date and Time Signed: 04/07/24 10:46EST OUTPATIENT SURGERY DISCHARGE INSTRUCTION Observed: 04/07/2024 10:38 AM Status: F Source: [facility] Outpatient Surgery Discharge Instruction [place] [id number] Patient Discharge Instructions PERSON INFORMATION Name: MUNIRA [...] With: Address: When: Asuncion Buchanan [address], [place] [address], [facility] [address] [place] [phone] Business (1) Comments: Office to call to schedule your follow up: white removal and voiding trial in 1- 2 days once urine is clear. Follow up in 1-2 weeks for pathology review. Type Location Start [facility] Office Visit [facility] EU Tariq 04/22/2024 10:45 AM 04/22/2024 11:00 [...] to serve you. Thank you for choosing [facility] HERE ARE THE MEDICATION CHANGES THAT OCCURRED DURING YOUR HOSPITAL STAY New Medications [facility], [address] [place] [id number], [phone] ciprofloxacin (Cipro 500 mg Tab) 1 Tablets [...] day. fluticasone nasal (fluticasone 0.05 mg/inh Nasal [place]) 2 Sprays Nasal Inhalation every day. fluticasone [...] PATIENT EDUCATION INFORMATION Instructions: [facility], [place] Post-Operative Instructions *Even though there are [...] bleeding * AZO (phenazopyridine) can be purchased xlom-qnw-llagdcr for burning with urination. This will make [...] do not hear from us by tomorrow. ([phone] or [phone]) Medication Leaflets: INPATIENT PATIENT SUMMARY Observed: 03/19 10:38 AM Status: F Source: [facility] Inpatient Patient Summary [address] [address] [facility] Clinical Discharge Instructions PERSON INFORMATION Name: MUNIRA CHESTER PHYSICIANS Admitting Physician: Asuncion Buchanan MD Attending Physician: Asuncion Buchanan MD PCP: ANDREA GOLDEN DO Discharge Diagnosis: Urethral caruncle; Urethral tumor Comment: PATIENT EDUCATION INFORMATION Instructions: Cook - Post Op INstructions for Bladder Tumor, Bladder Biopsy (CUSTOM) Medication Leaflets: Follow up: With: Address: When: Asuncion Buchanan [address] [place] [phone] Business (1) Comments: Office to call to schedule your follow up: white removal and voiding trial in 1- 2 days once urine is clear. Follow up in 1-2 weeks for pathology review. Type Location Start [facility] Office Visit [facility] BHAVIN Potter 04/22/2024 10:45 AM 04/22/2024 11:00 AM Confirmed MEDICATION LIST New Medications [facility], [address] [place], [place] [phone], [phone] ciprofloxacin (Cipro 500 mg Tab) 1 Tablets [...] day. fluticasone nasal (fluticasone 0.05 mg/inh Nasal [place]) 2 Sprays Nasal Inhalation every day. fluticasone [...] By Mouth every day. Refills: 1. Comment: SURGICAL PATHOLOGY REPORT Observed: 03/19 10:02 AM Status: F Source: [address] [place] [address]- Surgical Pathology Report Collected Date/Time: 04/07/2024 10:02 EST Pathologist: Fabiano VILLEGAS PhD, Dwight Parra Received Date/Time: 04/07/2024 10:58 ALAN Buchanan MD, Asuncion Buchanan MD, Asuncion Hightower Surgical Pathology [...] is entirely submitted in one cassette. (DC) DC:[facility] Microscopic Description Microscopic examination performed unless gross only specified. This report was transcribed using voice recognition technology and might contain unintended computerized product management specialist errors.Performed By: #### [id number] #### [facility] [address] [place] [address] SURGICAL PATHOLOGY REPORT Observed: 03/19 10:02 AM Status: F Source: [address] [place] [address]- Surgical Pathology Report Collected Date/Time: 04/07/2024 10:02 EST Pathologist: Fabiano VILLEGAS PhD, Dwight Parra Received Date/Time: 04/07/2024 10:58 ALAN Buchanan MD, Asuncion Buchanan MD, Asuncion Hightower Surgical Pathology [...] is entirely submitted in one cassette. (DC) DC:[facility] Microscopic Description Microscopic examination performed unless gross only specified. This report was transcribed using voice recognition technology and might contain unintended computerized product management specialist errors.Performed By: #### [id number] #### [facility] [address] [place] [address] MAIN OR PACU I RECORD Observed: 04/07/2024 9:59 AM Sta tus: F Source: [facility] Main OR PACU I Record PACU Phase I Document Type FT Summary Primary Physician: Asuncion Buchanan MD Finalized Date/Time: 04/07/24 12:46:06 Pt. Name: MUNIRA CHESTER/Sex: 1950 Female Med Rec #: [id number] Physician: Asuncion Buchanan MD Financial #: [id number] Pt. Type: A Room/Bed: Admit/Disch: 04/07/24 07:20:36 [...] Signed By: Pam Harris RN 04/07/24 12:46 MAIN OR PACU II RECORD Observed: 04/07/2024 9:[address] atus: F Source: [facility] Main OR PACU II Record PACU Phase II Document Type FT Summary Primary Physician: Asuncion Buchanan MD Finalized Date/Time: 04/07/24 12:11:40 Pt. Name: MUNIRA CHESTER Aviva/Sex: 1950 Female Med Rec #: [id number] Physician: Asuncion Buchanan MD Financial #: [id number] Pt. Type: A Room/Bed: [facility]/ Admit/Disch: 04/07/24 07:20:36 - Institution: Case Times [...] Signed By: Nasrin Stacy RN 04/07/24 12:11 MAIN OR PREOPERATIVE RECORD Observed: 9:59 AM Status: F Source: [facility] Main OR Preoperative Record PreOp Document Type FT Summary Primary Physician: Asuncion Buchanan MD Finalized Date/Time: 04/07/24 10:06:13 Pt. Name: MUNIRA CHESTER/Sex: 1950 Female Med Rec #: [id number] Physician: Asuncion Buchanan MD Financial #: [id number] Pt. Type: A Room/Bed: AS10/01 Admit/Disch: 04/07/24 07:20:36 - Institution: Case Times [...] perioperative plan of care Finalized By: Mary Maedra RN Document Signatures Signed By: Mary Madera RN 04/07/24 10:06 MAIN OR INTRAOPERATIVE RECORD Observed: 04/07/2024 9:59 AM Status: C Source: [facility] Main OR Intraoperative Recor d IntraOp Document Type FT Summary Primary Physician: Asuncion Buchanan MD Finalized Date/Time: 04/08/24 08:33:19 Pt. Name: MUNIRA CHESTER/Sex: 1950 Female Med Rec #: [id number] Physician: Asuncion Buchanan MD Financial #: [id number] Pt. Type: A Room/Bed: AS10/01 Admit/Disch: 04/07/24 07:20:36 - 04/07/24 12:00:00 Institution: [...] RN Role Performed Anesthesiologist Surgeon - Primary Door Liner - Primary Greens Laborer Time In 04/07/24 09:46:00 04/07/24 09:46:00 04/07/24 09:46:00 Time Out 04/07/24 10:20:00 04/07/24 10:16:00 04/07/24 10:20:00 Procedure CYSTOSCOPY TURB(.) CYSTOSCOPY TURB(.) CYSTOSCOPY TURB(.) Comments DR. NI SUPERVISING Last Modified By: Santy RN, Mary [...] 04/07/24 10:21:25 04/07/24 10:21:25 General Comments: gavin insulation 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 MARIA D kaiserwastewater superintendent Protocols FT Pre-Care Text: Implements protective measures [...] RN, Missler RN, CNOR, Luci Velazquez, Nicolas GATE TENDER, Meeta Ramos Time Out Complete 04/07/24 09:58:00 [...] and tissue Entry 1 Skin Integrity Intact, [place], Warm, & Skin Abnormality No Dry Outcomes [...] a result of positioning Entry 1 Procedure CYSTOSCOPY TURB(.) Body Position Low Lithotomy Feet Uncrossed? Yes Left Arm Position Extended on Padded Arm Board Right Arm Position Extended on Padded Arm Left Leg Position Secured in Stirrup Board Right Leg Position Secured in Stirrup Positioning Device Stirrups Yellow Fins, Pillow Under Head Large Press Points Checked Yes By Mary Madera RN, Sukhjinder RN, ESSIEOR, Linnette Jean Robert David Outcomes Met? Yes Last Modified By: Mary Madera RN 04/07/24 10:11:30 Post-Care Text: The patient is free from signs and symptoms of injury related to positioning Patient Care Devices FT Pre-Care Text: Implements protective measures to prevent skin/ tissue injury due to thermal or mechanical sources Entry 1 Entry 2 Entry 3 Equipment Type CAUTERY UNIT INTELLICART SUCTION UNIT MISTRAL FORCED AIR WARMING SYSTEM UNIT Equipment Number [id number] Equipment Setting Outcomes Met? Yes Yes Yes Last Modified By: Mary Madera RN, RN, Leann E Ott RN, Leann E 04/07/24 09:46:28 04/07/24 09:46:28 04/07/24 09:46:28 Entry 4 Entry 5 Entry 6 Equipment Type MONITOR CHARGE SURGERY PADDED STIRRUPS VIDEO SYSTEM Equipment Number 1 1 1- OLYMPUS Equipment Setting Outcomes Met? Yes Yes Yes Last Modified By: Mary Madera RN, RN, Leann E Ott RN, Leann E 04/07/24 10:11:42 04/07/24 09:46:28 04/07/24 09:46:28 Post-Care Text: The patient is free from signs and symptoms of injury caused by extraneous objects Transport To OR FT Pre-Care Text: Transports according to individual needs. Evaluates for signs and symptoms of skin and tissue injury as a result of transfer or transport Entry 1 Via Cart By Mary Madera RN Safety Precautions Side Rails Up Outcomes Met? Yes Last Modified By: Mary Madera RN 04/07/24 10:11:47 Post-Care Text: The patient is free from signs and symptoms of injury related to transfer/transport Cautery FT Pre-Care Text: Implements protective measures to prevent injury due to electrical sources, and evaluates for signsand symptoms of electrical injury Entry 1 ESU Identification ESU Type CAUTERY UNIT ESU Settings Cut 40 Coag 40 ESU Grounding Pad Site Right Thigh Hair Removal Pad No Site Pre Pad Site Clear and Intact Post Pad Site Clear and Intact Condition Condition Grounding Pad Sukhjinder KILLIAN, ESSIEOR, Luci Placed By Hollis Outcomes Met? Yes Last Modified By: Mary Madera RN 04/07/24 10:12:11 Post-Care Text: The patient if free from signs and symptoms of electrical injury Counts Verification FT Pre-Care Text: Performs required counts Entry 1 Entry 2 Procedure(s) CYSTOSCOPY TURB(.) CYSTOSCOPY TURB(.) Type Initial Final Items Instruments Instruments Status Correct Correct Time By Meeta Valenzuela LPN, LPN, Jessica D Outcomes Met? Yes Yes Last Modified By: Mary Madera RN, RN, Leann E 04/07/24 10:12:26 04/07/24 10:16:32 Post-Care Text: The patient is free from signs and symptoms of injury caused by extraneous objects Skin Prep FT Pre-Care Text: Performs skin preparations Entry 1 Procedure CYSTOSCOPY TURB(.) Prep Area perineum Prep Agents Hibiclens, Sterile Water Hair Removal Methods Not Indicated By Meeta Valenzuela LPN Outcomes Met? Yes Last Modified By: Mary Madera RN 04/07/24 10:14:39 Post-Care Text: The patient is free from signs and symptoms of infection Departure From OR FT Pre-Care Text: Transports according to individual needs. Evaluates for signs and symptoms of skin and tissue injury as a result of transfer or transport. Entry 1 Via Cart Safety Precautions Side Rails Up PostOp Destination PACU Transported By Sukhjinder KILLIAN, JLUIS, Luci Velazquez Patient Status Stable Report Given Pam Harris RN To/Hand Off Communication Skin. Condition Intact, [place], Warm, & Description skin unchanged from Dry preoperative status Airway Maintenance Oxygen in Use? Yes Airway Device Simple Mask Flow Rate 8 L Outcomes Met? Yes Last Modified By: Mary Madera RN 04/07/24 10:22:19 Post-Care Text: The patient is free from signs and symptoms of injury related to transfer/transport General Comments: verbal and written handoff report given to PACU nurse. Bill RN Medication Administration FT Pre-Care Text: Verifies allergies, administers prescribed medications and solutions, administers prescribed antibiotic therapy and immunizing agents as ordered, evaluates response to medications Administers prescribed medications and solutions Entry 1 Route of Admin Field Expiration Date Yes Verified Ordered By Asuncion Buchanan MD Transcribed/To Mary Madera RN Field By Administered By Asuncion Buchanan MD Outcomes Met? Yes Last Modified By: Mary Madera RN 04/07/24 13:57:30 Post-Care Text: The patient received appropriate medication(s) safely administered during the perioperative period For [place]Howard please see scanned medication reconcilliation form for medications used at the field during the procedure. Urinary Catheter Pre-Care Text: Patient is prepped using sterile technique. Entry 1 Urinary Catheter CATH WHITE SILICONE 5CC Present Upon Arrival No Inserted 2WY 18FR Insertion Site Uretheral Inserted By Asuncion Buchanan MD Discontinued? No Outcomes Met? Yes Last Modified By: Mary Madera RN 04/07/24 13:57:44 Post-Care Text: The patient is free from signs of trauma. Cultures & Specimens FT Pre-Care Text: Manages specimen handling and disposition Manages culture specimen collection Entry 1 Cultures Ordered n/a Specimens Ordered Yes Specimen Disposition Designated OR Area Frozen Section Times Outcomes Met? Yes Last Modified By: Mary Madera RN 04/07/24 13:57:55 Post-Care Text: The patient is free from signs and symptoms of injury caused by extraneous objects The patient is free from signs and symptoms of infection Temperature Control Entry 1 Temperature Control BLANKET MISTRAL AIR Quantity 1 Aid TORSO Fluid/[place] Unit Mistral warming system Setting 43c/high Body Site Upper anterior torso Last Modified By: Mary Madera RN 04/07/24 13:58:15 Sign Out FT Entry 1 Before Patient Leaves OR Nurse verbally Yes Nurse verbally Yes confirms with the confirms with the team the name of team that the procedure(s) instrument, sponge, recorded and needle counts are correct (or N/A) Nurse verbally Yes Nurse verbally n/a confirms with the confirms with the team how the team whether there specimen is labeled are any equipment (including patient problems to be name), if applicable addressed Sign Out Complete 04/07/24 10:14:00 Last Modified By: Mary Madera RN 04/07/24 13:58:34 Case Comments <None> Finalized By: Rica Carpenter CST Document Signatures Signed By: Mary Madera RN 04/07/24 13:58 Rica Carpenter CST 04/08/24 08:33 PROGRESS NOTE-PHYSICIAN Observed: 2024 9:00 AM Status: F Source: [facility] Progress Note-Physician Patient: MUNIRA CHESTER Age: 73 years [...] day(s), # 2 tab(s), Refills(s) 0, Pharmacy: [facility], 158, cm, 03/24/24 11:38:00 EST, Height/Length Dosing, 75.5, kg, 03/24/24 11:38:00 EST, Weight Dosing... Macrobid 100 mg Cap: 100 mg = 1 cap(s), Oral, As Directed, take 1 tablet within 1 hour before or after intercourse to prevent infection., # 30 cap(s), Refills(s) 3, Pharmacy: [facility], 158, cm, 02/20/23 8:48:00 EST, Height/Length Dosing, 68.5, kg,... Pantoprazole [address] Tab: 40 mg = 1 tab(s), Oral, Daily, # 90 tab(s), Refills(s) 1, [facility] [address] [facility], 154.9, cm, 12/11/19 9:26:00 EDT, Height/Length Dosing, 70.2, kg, 12/11/19 9:26:00 EDT, Weight Dosing estradiol 0.1 mg/g Vag Crm: See Instructions, 42.5 gm, Refill(s) 0, apply pea sized amount to urethra 2x/wk, [facility], 158, cm, 02/05/24 11:08:00 EST, Height/Length Dosing, 62, kg, 02/05/24 11:08:00 EST, Weight Dosing oxybutynin 5 mg Tab: 5 mg = 1 tab(s), Oral, TID, PRN bladder spasms, # 30 tab(s), Refills(s) 0, Pharmacy: [facility], 158, cm, 03/24/24 11:38:00 EST, Height/Length [...] of stomach acid fluticasone 0.05 mg/inh Nasal [place]: 2 spray(s), Nasal, Daily, Refill(s) 0 levothyroxine 100 mcg (0.1 mg) Tab: 100 mcg = 1 tab(s), Oral, Daily, Refills(s) 0, Thyroid montelukast 10 mg Tab: 10 mg = 1 tab(s), Oral, qPM, # 90 tab(s), Refills(s) 0, Asthma orphenadrine compounding powder: PRN Migraine headache, Refills(s) 0 Problem list: All Problems Acute allergic rhinitis due to pollen / SNOMED CT 42073104 / Confirmed Benign essential hypertension / SNOMED CT 6415591 / Confirmed GERD (gastroesophageal reflux disease) / SNOMED CT 595611532 / Confirmed Lumbar spondylosis / SNOMED CT 014848878 / Confirmed Cervical spondylosis / SNOMED CT 6697818870 / Confirmed History of gastric ulcer / SNOMED CT 462982074 / Confirmed Osteopenia of lumbar spine / SNOMED CT 602647253 / Confirmed Hyperlipidemia / SNOMED CT 90627947 / Confirmed Hypothyroidism, acquired, autoimmune / SNOMED CT 759259852 / Confirmed Chronic tension headache / SNOMED CT 045208765 / Confirmed Mild persistent asthma / SNOMED CT 2082399062 / Confirmed Bilateral cataracts / SNOMED CT 011103401 / Confirmed Migraine / SNOMED CT 23154260 / Confirmed Duodenal stricture / SNOMED CT 91352119 / Confirmed H/O gastric ulcer / SNOMED CT 143544059 / Confirmed Personal history of colonic polyps / SNOMED CT 9052386154 / Confirmed Epigastric pain / SNOMED CT 953470572 / Confirmed Abdominal bloating / SNOMED CT 613472381 / Confirmed Graves disease / SNOMED CT 427421065 / Confirmed Hypertension / SNOMED CT 2333712302 / Confirmed Asthma / SNOMED CT 988020045 / Confirmed Arthritis / SNOMED CT 9464913 / Confirmed Urinary tract infection / SNOMED CT 360388722 / Confirmed Microscopic hematuria / SNOMED CT 750947630 / Confirmed Incomplete bladder emptying / SNOMED CT 435631915 / Confirmed Mixed incontinence / SNOMED CT 80236504 / Confirmed Nocturia / SNOMED CT 571917951 / Confirmed Asymptomatic microscopic hematuria / SNOMED CT 1861474582 / Confirmed Urethral caruncle / SNOMED CT 68210998 / Confirmed Recurrent UTI / SNOMED CT 921679925 / Confirmed Small bowel stricture / SNOMED CT 1534047829 / Confirmed Resolved: Reflux of urine / SNOMED CT 2376033163 Histories Past Medical History: Resolved Reflux of urine ([id number]): Resolved. Family History: Rheumatoid arthritis Mother Primary malignant neoplasm of lung Mother Diabetes mellitus type 2 Father Primary malignant neoplasm of female breast Sister Procedure history: Cystoscopy, urethral biopsy ([id number]) on 04/07/2024 at 73 Years. Esophagogastroduodenoscopy (969526495) on 05/22/2023 at 72 Years. Colonoscopy ([id number]) on 05/22/2023 at 72 Years. Colonoscopy ([id number]) on 09/07/2019 at 69 Years. EGD - Esophagogastroduodenoscopy (0117264310) on 09/07/2019 at 69 Years. EGD - Esophagogastroduodenoscopy (3486494742) on 01/16/2015 at 64 Years. Colonoscopy (990357517) on 01/16/2015 at 64 Years. Comments: 08/31/2019 16:19 EDT - Tonie Barragan LPN normal EGD - Esophagogastroduodenoscopy (0938893967) on 08/17/2011 at 61 Years. EGD - Esophagogastroduodenoscopy (3582133092) on 05/17/2011 at 60 Years. Laparoscopic cholecystectomy (43771020) on 06/16/2010 at 59 Years. Colonoscopy ([id number]) on 01/16/2010 at 59 Years. section (68433752). Rotator cuff repair (942124008). Tubal ligation (514735538). Cataracts (3585135833). Foot (79339973). Dilation and curettage (31518826). Thyroidectomy (16867122). Right wrist surgery (87402525). Social History Social & Psychosocial Habits Alcohol 03/24/2024 Risk Assessment: Denies Alcohol Use Substance Abuse 03/24/2024 Risk Assessment: Denies Substance Abuse Tobacco 03/24/2024 Tobacco Use: Never (less than 100 in l 03/24/2024 Tobacco Use: Never (less than 100 in l 03/24/2024 Tobacco Use: Never (less than 100 in l Smokeless tobacco use: Never Concerns about tobacco use in household: No . Physical Examination Please see preop flow sheet Airway: Mallampati classification: II (soft palate, fauces, uvula visible). Respiratory: Lungs are clear to auscultation. Cardiovascular: Normal rate, Regular rhythm. Neurologic: Alert. Review / Management Results review Interpretation of Outside Results Chest x-ray results Radiology results ECG interpretation Condition Plan [place] [employer] (ASA) physical status classification: Class III. Anesthetic Preoperative Plan Anesthesia: General. . Anesthetic plan, risks, benefits, and alternatives discussed with the patient and/or family. Risks discussed: nausea, vomiting, headache, sore throat, dental injury, serious complications. Patient verbalized understanding. Communication: face to face with patient 5 minutes.Result Comment: Electronically Signed By: MD Doug, Debbie F\.melissa\Date and Time Signed: 04/07/24 17:50 EST XR CHEST 2 VIEWS Observed: 03/24/2024 8:03 AM Status: F Source: [facility] Exam Date/Time: 03/24/2024 08:16 EST Reason for [...] in mGy = n/a DAP = n/ C URINE Observed: 03/24/2024 7:56 AM Status: F Source: [facility] Microbiology PROCEDURE: Urine Culture [R1] SOURCE: U CleanCatch BODY SITE: COLLECTED DATE/TIME: 03/24/2024 07:56 EST RECEIVED DATE/TIME: 03/24/2024 13:41 EST START DATE/TIME: 03/24/2024 13:41 EST FREE TEXT SOURCE: Dewayne VILLEGAS, Asuncion Buchanan MD, Asuncion [place] FINAL REPORTS Final Report [] Verified Date/Time: 03/26/2024 11:19 EST 3,000 cfu/ml Mixed skin contaminants Performing Locations R1: This test was performed at: [facility], [address] [place] [address], [facility] , , Lzhyifqsf By: [facility] [address] [place] [address] URINE Observed: 03/24/2024 7:56 AM Status: F Source: [facility] Microbiology PROCEDURE: Urine Culture [R1] SOURCE: U CleanCatch BODY SITE: COLLECTED DATE/TIME: 03/24/2024 07:56 EST RECEIVED DATE/TIME: 03/24/2024 13:41 EST START DATE/TIME: 03/24/2024 13:41 EST FREE TEXT SOURCE: Dewayne VILLEGAS, Asuncion Buchanan MD, Asuncion London FINAL REPORTS Final Report [] Verified Date/Time: 03/26/2024 11:19 EST 3,000 cfu/ml Mixed skin contaminants Performing Locations R1: This test was performed at: [facility], [address] [place] [address], [address] , , Kydqxdgla By: [facility] [address] [place] [address] UA WITH CULT RFLX Collected: 7:56 AM Status: F Source: [facility] TYPE CODE TESTS RESULT OUT OF RANGE REFERENCE UNITS LAB 9194-2([facility]) CLASS:TYPE:PT: URINE COLLECTION METHOD:NOM:* Clean Catch Normal LAB 74566-9([facility]) COLOR:TYPE:PT: URINE:NOM:AUTO Yellow Normal Yellow Result Comment: Microscopic readings are only performed on those samples that meet specific criteria set forth by [facility]. LAB 70797-8([facility]) CLARITY:TYPE:P T:URINE:NOM: Turbid Abnormal Clear LAB 5811-5([facility]) SPECIFIC GRAVITY:RDEN:P T:URINE:SEMIQN :TEST STRIP 1.039 Unknown 1.005-1.030 LAB 5803-2([facility]) PH:LSCNC:PT:UR INE:SEMIQN:DIONNA T STRIP 5.5 Unknown 5.0-9.0 LAB 92088-1([facility]) PROTEIN:PRTHR: PT:URINE:ORD:T EST STRIP 1+ Abnormal Negative mg/dL LAB 60418-3(INC) GLUCOSE:PRTHR: PT:URINE:ORD:T EST STRIP Negative Normal Negative mg/dL LAB 99621-9(INC) KETONES:PRTHR: PT:URINE:ORD:T EST STRIP.AUTOMATE D Negative Normal Negative mg/dL LAB 90547-5(LOINC) BILIRUBIN:PRTH R:PT:URINE:ORD :TEST STRIP.AUTOMATE D Negative Normal Negative mg/dL LAB 73354-8(LOINC) HEMOGLOBIN:MCN C:PT:URINE:EVE IQN:TEST STRIP.AUTOMATE D Negative Normal Negative mg/dL LAB 21490-9(LOINC) NITRITE:PRTHR: PT:URINE:ORD:T EST STRIP.AUTOMATE D Negative Normal Negative mg/dL LAB 08505-4([facility]) UROBILINOGEN:M CNC:PT:URINE:S EMIQN:TEST STRIP Negative Normal Negative mg/dL LAB 78734-5([facility]) LEUKOCYTE ESTERASE:PRTHR :PT:URINE:ORD: TEST STRIP.AUTOMATE D 25 Rosemarie/uL Normal Negative CD:51424 74954 LAB 45076-7([facility]) LEUKOCYTES:TERRIE IC:PT:URINE SED:QN:AUTOMAT ED COUNT 6-15 Abnormal 0-5 CD:53313 32409 LAB 70322-1([facility]) ERYTHROCYTES:P RTHR:PT:URINE SED:ORD:MICROS COPY.LIGHT 21-30 Abnormal 0-3 CD:23032 24034 LAB 32191-5([facility]) EPITHELIAL CELLS.SQUAMOUS :NARIC:PT:URIN E SED:QN:AUTOMAT ED COUNT 0-2 Unknown CD:90284 57802 LAB 45424-9([facility]) BACTERIA:PRTHR :PT:URINE:ORD: AUTOMATED Trace Normal Trace /HPF LAB 26647-4([facility]) MUCUS:PRTHR:PT :URINE:ORD:AUT OMATED 3+ Abnormal Negative CD:15882 40440 LAB 63753-5([facility]) HYALINE CASTS:PRTHR:PT :URINE SED:ORD:MICROS COPY.LIGHT 0-3 Normal 0-3 CD:55346 94028 Performed By: [facility] [address] [place] [address] EGFR Collected: 7:53 AM Status: F Source: [facility] TYPE CODE TESTS RESULT OUT OF RANGE REFERENCE UNITS LAB 13042454([facility]) eGFR 92 Normal >=59 mL/min/1 .7 3 m2 Performed By: [facility] [address] [place] [address] CBC W/ AUTO DIFF Collected: 03/24/2024 7:53 AM Statu s: F Source: [facility] TYPE CODE TESTS RESULT OUT OF RANGE REFERENCE UNITS LAB 82108-3([facility]) LEUKOCYTES^^JOEL ECTED FOR NUCLEATED ERYTHROCYTES:NCN C:PT:BLD:QN:AUTO MATED COUNT 10.6 Normal 4.0-11.0 E9/L LAB 789-8([facility]) ERYTHROCYTES:NCN C:PT:BLD:QN:AUTO MATED COUNT 4.0 Low 4.3-5.9 E12/L LAB 718-7([facility]) HEMOGLOBIN:MCNC: PT:BLD:QN: 12.8 Normal 12.0-16.0 gm/dL LAB 4544-3([facility]) HEMATOCRIT:VFR:P T:BLD:QN:AUTOMAT ED COUNT 36.8 Normal 34.0-46.0 % LAB 788-0([facility]) ERYTHROCYTE DISTRIBUTION WIDTH:RATIO:PT:R BC:QN:AUTOMATED COUNT 14.6 High 10.9-14.2 % LAB 785-6([facility]) ERYTHROCYTE MEAN CORPUSCULAR HEMOGLOBIN:ENTMA SS:PT:RBC:QN:AUT OMATED COUNT 31.7 Normal 27.0-34.0 pg LAB 786-4([facility]) ERYTHROCYTE MEAN CORPUSCULAR HEMOGLOBIN CONCENTRATION:MC NC:PT:RBC:QN:AUT OMATED COUNT 34.7 Normal 31.4-36.0 gm/dL LAB 787-2([facility]) ERYTHROCYTE MEAN CORPUSCULAR VOLUME:ENTVOL:PT :RBC:QN:AUTOMATE D COUNT 91.5 Normal 80.0-100.0 fL LAB 32297-0([facility]) PLATELET MEAN VOLUME:ENTVOL:PT :BLD:QN:AUTOMATE D COUNT 8.3 Normal 6.4-10.8 fL LAB 777-3([facility]) PLATELETS:NCNC:P T:BLD:QN:AUTOMAT ED COUNT 336.0 Normal 150.0-500.0 E9/L LAB 19177-8([facility]) NEUTROPHILS/100 LEUKOCYTES:NFR:P T:BLD:QN: 76.6 High 36.0-75.0 % LAB 731-0([facility]) LYMPHOCYTES:NCNC :PT:BLD:QN:AUTOM ATED COUNT 12.1 Low 14.0-50.0 % LAB 742-7([facility]) MONOCYTES:NCNC:P T:BLD:QN:AUTOMAT ED COUNT 0.9 Normal 0.2-1.0 E9/L LAB 713-8([facility]) EOSINOPHILS/100 LEUKOCYTES:NFR:P T:BLD:QN:AUTOMAT ED COUNT 2.2 Normal 0.0-8.0 % LAB 704-7([facility]) BASOPHILS:NCNC:P T:BLD:QN:AUTOMAT ED COUNT 0.4 Normal 0.0-2.0 % LAB 751-8([facility]) NEUTROPHILS:NCNC :PT:BLD:QN:AUTOM ATED COUNT 8.1 High 2.0-7.5 E9/L LAB 25100-0([facility]) LYMPHOCYTES:NCNC :PT:BLD:QN: 1.3 Normal 1.0-4.0 E9/L LAB 95447-5([facility]) EOSINOPHILS:NCNC :PT:BLD:QN: 0.2 Normal 0.0-0.5 E9/L LAB 43995-9([facility]) BASOPHILS/LEUKOC YTES:NFR.DF:PT:B LD:QN:AUTOMATED COUNT 0.0 Normal 0.0-0.2 E9/L Performed By: [facility] [address], [place] [address] Collected: 5 7:53 AM Status: F Source: [facility] TYPE CODE TESTS RESULT OUT OF RANGE REFERENCE UNITS LAB 2345-7([facility]) GLUCOSE:MCNC :PT:SER/PLAS :QN: 96 Normal 55-199 mg/dL LAB 3094-0([facility]) UREA NITROGEN:MCN C:PT:SER/LEROY S:QN: 14 Normal 5-21 mg/dL LAB 2160-0([facility]) CREATININE:M CNC:PT:SER/P LAS:QN: 0.7 Normal 0.5-1.3 mg/dL LAB 3097-3([facility]) UREA NITROGEN/CRE ATININE:MRTO :PT:SER/PLAS :QN: 20 Normal 10-20 No Units LAB 72564-7([facility]) CALCIUM:MCNC :PT:SER/PLAS :QN: 9.2 Normal 8.9-11.1 mg/dL LAB 2951-2([facility]) SODIUM:SCNC: PT:SER/PLAS: QN: 141 Normal 135-145 mmol/L LAB 2823-3([facility]) POTASSIUM:SC NC:PT:SER/PL :QN: 3.5 Normal 3.5-5.3 mmol/L LAB 2075-0([facility]) CHLORIDE:SCN C:PT:SER/LEROY S:QN: 106 Normal 101-111 mmol/L LAB 2027-11(LOINC) CARBON DIOXIDE:SCNC :PT:SER/PLAS :QN: 27 Normal 21-31 mmol/L LAB 19666-1(LOINC) ANION GAP:SCNC:PT: SER/PLAS:QN: 12 Normal 6-16 mEq/L Performed By: [facility] [address] [place] [address] PT & PTT Collected: 03/24/2024 7:53 AM Status: F Source: [facility] TYPE CODE TESTS RESULT OUT OF RANGE REFERENCE UNITS LAB 5902-2([facility]) COAGULATION TISSUE FACTOR INDUCED:TIME:PT: PPP:QN:COAG 11.9 Normal 9.4-12.5 second(s) Result Comment: 15 days - 4 weeks 1 [...] the same coagulation reagent and instrumentation as [facility]. Currently there are no coagulation studies available worldwide for children to 14 days, andno normal ranges.RUX19182-5([facility])COAGULATION SURFACE INDUCED:TIME:PT:PPP:QN:COAG 32.4Sbvhhi17.1-36.5second(s)Result Comment: Parameter 15 days - 4 weeks [...] the same coagulation reagent and instrumentation as [facility]. Currently there are no coagulation studies available worldwide for children to 14 days, andno normal ranges. Heparin therapeutic range (represented by Anti-Factor Xa activity of 0.2 - 0.4 U/mL) corresponds to PTT of 56.6 - 109.0 sec.WZF0478-4([facility])COAGULATION TISSUE FACTOR INDUCED.INR:RELTIME:PT:PPP:QN:COAG1.06UnknownResult Comment: INR results are specifically intended to assess patients stabilized on long-term Anticoagulation therapy suggested INR???s ???Less Intensive Anticoagulation??? 2.0 ??? 3.0 Conventional Range 3.0 ??? 4.5Performed By: [facility] [address] [place] [address] URINE CYTOLOGY ( LABS) Collected: 02/24/2024 1:08 P M Status: F Source: [facility] TYPE CODE TESTS RESULT OUT OF RANGE REFERENCE UNITS LAB 14498-9([facility]) MICROSCOPIC EXAM:IMP:PT:URI NE:NOM:CYTOLOGY Diagnosis Info Unknown Result Comment: A:Urine,Urin e:Post Cystoscopy Void Interpretation - A few clusters of urothelial cells with mild atypia; as post cystoscopy voided urine, low grade papillary urothelial neoplasm can not be excluded. Clinical correlation is indicated. Adequate cellularity for evaluation. CPT 13726 MicroScopic Description - Adequacy - Gross Description Site ID:A color Yellow fixative Alcohol Specimen designated Urine received in alcohol preservative and labeled with the patient???s name, consists of 90ml clear yellow fluid. Electronically signed by : on: 02/27/2024 13:00:36LAB CD:[id number]([facility]) Number of [id number]([facility]) Type of ServiceTechnical OnlyNormalLABCD:[id number]([facility]) Method of ExtractionPost Cysto VoidNormalLABCD:[id number]([facility])UC SpecimenUrineNormalPerformed By: [facility] [address] [place] [address] PROGRESS NOTE-PHYSICIAN Observed: 2023 10:26 AM Status: F Source: [facility] Progress Note-Physician Patient: MUNIRA CHESTER Age: 73 years [...] # 30 cap(s), Refills(s) 3, Pharmacy: [facility], 158, cm, 02/20/23 8:48:00 EST, Height/Length Dosing, 68.5, kg,... Pantoprazole [address] Tab: 40 mg = 1 tab(s), Oral, Daily, # 90 tab(s), Refills(s) 1, Pharmacy: [facility] [facility], 154.9, cm, 12/11/19 9:26:00 EDT, Height/Length Dosing, 70.2, kg, 12/11/19 9:26:00 EDT, Weight Dosing estradiol 0.1 mg/g Vag Crm: See Instructions, 42.5 gm, Refill(s) 0, apply pea sized amount to urethra 2x/wk, [facility], 158, cm, 02/05/24 11:08:00 EST, Height/Length [...] of stomach acid fluticasone 0.05 mg/inh Nasal [place]: 2 spray(s), Nasal, Daily, Refill(s) 0 levothyroxine [...] -Irritated/abnormal appearing caruncle, proceed with bx as aboveResult Comment: Electronically Signed By: Asuncion Buchanan MD\.br\Date and Time Signed: 02/24/24 12:33EST OPERATIVE REPORT Observed: 02/24/2024 10:21 AM Status: F Source: [facility] Operative Report Patient: MUNIRA CHESTER Age: 73 years Sex: Female : 1950 Associated Diagnoses: None Author: Asuncion Buchanan MD Procedure Operative Information Details: Date/ Time: 02/24/2024 10:21:00. Pre-Op Dx: Mixed Urinary Incontinence - N39.46. 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 Anesthesia Type: Local. Procedure: [...] -Will schedule Bulkamid under anesthesia once biopsy results..Result Comment: Electronically Signed By: Asuncion Buchanan MD\.br\Date and Time Signed: 02/24/24 10:26EST PATIENT EDUCATION Observed: 02/24/2024 10:20 AM Status : F Source: [facility] Patient Education Cystoscopy ??? Voiding after the procedure: [...] you have a fever over 100 degrees. OUTPATIENT SURGERY DISCHARGE INSTRUCTION Observed: 02/24/2024 10:20 AM Status: F Source: [facility] Outpatient Surgery Discharge Instruction [address] [address] Patient Discharge Instructions PERSON INFORMATION [...] you have a fever over 100 degrees. ICATHERINE ROSEMARY, have received the attached patient education [...] to serve you. Thank you for choosing [facility] INPATIENT PATIENT SUMMARY Observed: 11/2023 10:20 AM Status: F Source: [facility] Inpatient Patient Summary [place] [id number] Clinical Summary Person Information Name: MUNIRA CHESTER Age: 73 Years : 1950 Sex: Female PCP: ANDREA GOLDEN DO Marital Status: Race: White Ethnicity: Non- or Language: Norwegian Visit Id: Visit Reason: MIXED INCONTINENCE Speciality: Acuity: Enc Type: Outpatient Med Service: Surgery Arrival: 02/24/2024 09:03:30 Discharge: Dispo Type: Address: [address] [place] [address] [phone] Provider Notes: Diagnosis: Intrinsic sphincter deficiency (ISD); [...] day. fluticasone nasal (fluticasone 0.05 mg/inh Nasal [place]) 2 Sprays Nasal Inhalation every day. fluticasone [...] Information: EU - Cystoscopy Discharge Instructions (CUSTOM) MAIN OR INTRAOPERATIVE RECORD Observed: 02/24/2024 10:11 AM Status: C Source: [facility] Main OR Intraoperative Recor d IntraOp Document Type FTURO Summary Primary Physician: Asuncion Buchanan MD Finalized Date/Time: 02/24/24 10:21:12 Pt. Name: MUNIRA CHESTER Aviva/Sex: 1950 Female Med Rec #: [id number] Physician: Asuncion Buchanan MD Financial #: [id number] Pt. Type: O Room/Bed: / Admit/Disch: 02/24/24 [...] Kimberly A Role Performed Surgeon - Primary Door Liner - Primary Scrub - Primary Time In 02/24/24 10:07:00 02/24/24 10:07:00 02/24/24 10:07:00 Time Out 02/24/24 10:18:00 02/24/24 10:18:00 02/24/24 10:18:00 Procedure CYSTOSCOPY LOCAL(.) CYSTOSCOPY LOCAL(.) CYSTOSCOPY LOCAL(.) Comments Last Modified By: Libby Garica Kelsie E Burgderfer, Kelsie E 02/24/24 10:20:50 [...] By: Libby Garcia 02/24/24 10:15:51 Case Comments <None> Finalized By: Libby Garcia Document Signatures Signed By: Libby Garcia 02/24/24 10:21Libby Garcia 02/24/24 10:21 Libby Garcia 02/24/24 10:21 MAIN OR PREOPERATIVE RECORD Observed: 9:30 AM Status: C Source: [facility] Main OR Preoperative Record Holding Area Document Type FTURO Summary Primary Physician: Asuncion Buchanan MD Finalized Date/Time: 02/24/24 10:08:50 Pt. Name: MUNIRA CHESTER/Sex: 1950 Female Med Rec #: [id number] Physician: Asuncion Buchanan MD Financial #: [id number] Pt. Type: O Room/Bed: / Admit/Disch: 02/24/24 [...] Complaints of Pain: No Skin Integrity Intact, [place], Warm, & Dry Vitals - EU Blood Pressure 151/84 Pulse 73 bpm Respirations 18 br/min SPO2 98 % Additional None RN Reviewed Yes Specimens Collected Last Modified By: Libby Garcia 02/24/24 10:08:49 Finalized By: Libby Garcia Document Signatures Signed By: Meeta Valenzuela LPN 02/24/24 09:32 Libby Garcia 02/24/24 10:08 ALLERGIES DATE TYPE / CODE NAME / CODE REACTION SEVERITY SOURCE 12/27/2023 DRUG INGREDI/915461499(SNOMED CT) AMOXICILLIN O THER: SEE C [facility]12/08/2007DRUG INGREDI/796257640(SNOMED CT)[facility]12[facility]Drug Class/587880800(SNOMED CT)SULFA (SULFONAMIDE ANTIBIOTICS)[facility]46[facility]) siqbxjmwxicKW3355-0Wfmkzc [facility]DR/510293822([facility]OM[facility] CT)penicillin 221093177QrfbdfSamaritan HospitalDR/448571896(SNOMED CT)Bee Stings 381092649~873154183XdzanhSamaritan HospitalDR/929919287(SNOMED CT)sulfa drugs 651205292UhojhnSamaritan HospitalDR/898338401(SNOMED CT)pkxcam261439382MwrmwkSamaritan HospitalDR/264026096(SNOMED CT)contrast media (iodine-based) 520348163~761443560LdnpfbSamaritan Hospital ENCOUNTERS ADMIT/DISCHARGE ACCOUNT NUMBER ADMITTING ENCOUNTER CLASS LOCATION SOURCE 01/25/2025/ 5 [id number] Elijah Botello [facility] 12/28/2024/12/28/2024 [id number] AmbulatoryBuilding:NOMS REX [facility] 12/10/2024/[id number]-Ifpvo DHBuilding:[facility] DHRoom: CD:[id number] Hospital08/05/2024/[id number] [facility]Building:[facility] DHRoom: CD:[id number] [id number] Clinic HospitalBuilding:VBB4Wmmvaeyax[address] [place], [place] [address]/08/2024/[id number] AmbulatoryEU BellevueBuilding:EU BellevueRoom: Exam [facility] 06/02/2024/[id number], Kathy M.AmbulatoryFTBuilding:ASRoom: HH05Sez: [facility]05/20/2024/[id number], Kathy M. AmbulatoryFTBuilding:FT [id number], Kathy M.AmbulatoryST[facility]Building:FT [facility] 04/30/2024/[id number]:NOMS REX [facility]04/22/2024/[id number] BellevueBuilding:EU BellevueRoom: Exam [address] [place] [address] 04/16/2024/[id number]:NOMS REX [facility]04/08/2024/[id number] BellevueBuilding:EU [facility]vueSam[facility] Hospital04/07/2024/[id number], Kathy M. AmbulatoryST. [facility]LA[facility] CITYBuilding:ASRoom: VH39Obs: [address] [place] [address] 03/24/2024/[id number], Kathy M.AmbulatoryFTBuilding:FT [id number], Kathy M.AmbulatoryST. [facility]LA[facility] CITYBuilding:FT PST [facility]02/24/2024/[id number], Kathy M.Ambulatory [facility] CITYBuilding:FT.JOCELYNSamaritan Hospital PAYERS ENCOUNTER GUARANTOR PAYER SUBSCRIBER SOURCE 12/28/2024 MUNIRA JAYB: [place] [address]Tel: (HP) Primary Insurance:MEDICAREPo licy Number: [id number] Date:2874-85-14Huwj Name:Medicare MUNIRA JAYB: [id number] [place] [phone] [facility] EPIC 12/28/2024 MUNIRA CHESTERDOB: [place] [address]Tel: (HP) Secondary Insurance:MEDICAL MUTUALPolicy Number: [id number] e Date:2021-07-16 MUNIRA CHESTERDOB: [id number] [place] [address] [facility] EPIC 12/10/2024 MUNIRA CHESTERDOB: [facility] 175Tel: ~~(4 1 (HP) Primary Insurance:MEDICAREPo licy Number: [id number] Date:6023-74-50[address]Jxqkiowv, [place] [address]QR: MUNIRA [facility] 12/10/2024 MUNIRA CHESTERDOB: [facility] 175Tel: ~~(4 1 (HP) Secondary Insurance:MEDICAL MUTUALPolicy Number: [id number] e Date:2024-04-22 MUNIRA [facility] 08/05/20[address] CHESTERDOB: [address] 175Tel: ~~(4 1 (HP) Primary Insurance:MEDICAREPo licy Number: [id number] Date:9772-94-68FS [address] [place] [address]NG: MUNIRA COATES [facility] 08/05/2024 MUNIRA SCHNEIDERDOB: [facility] [address] 175Tel: ~~(4 1 (HP) Secondary Insurance:MEDICAL MUTUALPolicy Number: [id number] e Date:2024-04-22 MUNIRA COATES [facility] 07/13/2024 Primary Insurance:MEDICARE A AND BPolicy Number: [id number] Date:7047-69-54Lmiq Name:JESÚS JAYB: [id number] [address]07/13/2024Secondary Insurance:MMO MEDICARE SUPPLEMENTPolicy Number: [id number] Date:4024-00-60Hbup Name:MINA CHESTERDOB: [id number] [place], [place] 15[address]907/08/2024MUNIRA SCHNEIDERDOB: [facility] 175Tel: ~~(41 (HP)Primary Insurance:MEDICAREPolicy Number: [id number] Date:9499-14-83XO [place] [address] [address]VS: rCARLA COATESSamaritan Hospital07/08/2024MUNIRA CHESTERDOB: [facility] 175Tel: ~~(41 (HP) Secondary Insurance:MEDICAL MUTUALPolicy Number: [id number] Date:0865-51-13GXHKLXHEMUNIRA COATESSamaritan Hospital06/02/2024 MUNIRA JAYB: [facility] 175Tel: ~~(41 (HP)Primary Insurance:MEDICAREPolicy Number: [id number] Date:8041-46-08J[place] [address]PR: rCARLA House [facility]06/02/2024MUNIRA CHESTERDOB: [facility] 175Tel: ~~(41 (HP)Secondary Insurance:MEDICAL MUTUALPolicy Number: [id number] Date:2024-04-22 [address] COATESDuke [facility] Hospitalsandro [facility]05/20/2024MUNIRA [facility] HOSPITALB: [facility] 175Tel: ~~(41 (HP)Primary Insurance:MEDICAREPolicy Number: [id number] Date:9206-90-16[place] [address]OX: RCARLA COATESSamaritan Hospital05/20/2024MUNIRA CHESTREB: [facility] 175Tel: ~~(41 (HP)Secondary Insurance:MEDICAL MUTUALPolicy Number: [id number] Date:3196-48-23TCSOBIXX SCHNEIDERUniversity Hospitals [facility]04/30/2024MUNIRA CHESTERB: [address] [address]Bsd: (HP)Primary Insurance:MEDICAREPolicy Number: [id number] Date:6063-08-63Qvxb Name:MedicareROSEMARY SCHNEIDERDO: [id number] [address]FziupzojFisher-Titus Medical Center04/30/2024MUNIRA HCESTERB: [address] [address]Fmc: (HP)Secondary Insurance:MEDICAL MUTUALPolicy Number: [id number] Date:1691-85-58KBFAHUBZ SCHNEIDERDOB: [id number] [address]Oejldbet [facility]04/22/2024MUNIRA SCHNEIDERDOB: [facility] 175Tel: ~~(19 (HP)Primary Insurance:MEDICAREPolicy Number: [id number] Date:1862-34-61ZV [address]ZwtdhhhcS[place] [address]BN: rDEEABRAZO SCOTTSDALE CAMPUSPeg [facility]04/22/2024MUNIRA CHESTERDOB: [facility] 175Tel: ~~(45 (HP) Secondary Insurance:MEDICAL MUTUALPolicy Number: [id number] Date:2272-35-65SKBJYBXL [facility]04/16/2024 MUNIRA CHESTERDOB: [address] [address]Rdp: (HP)Primary Insurance:MEDICAREPolicy Number: [id number] Date:5156-55-74Rbti Name:MedicareROSEMARY SCHNEIDERDOB: [id number] [address]Asyyxnak [facility]04/16/2024 MUNIRA SCHNEIDERDOB: [address] [address]Pjt: (HP)Secondary Insurance:MEDICAL MUTUALPolicy Number: [id number] Date:8196-97-72DHQRPKCB SCHNEIDERDOB: [id number] [address]Whujrrcl [facility] 04/08/2024MUNIRA SCHNEIDERDOB: [facility] [address] 175Tel: ~~(41 (HP)Primary Insurance:MEDICAREPolicy Number: [id number] Date:4253-31-57RN [address]Slgtnbfl,[place] [address]OQ: RCARLA [facility]etaMercy Medical Center04/08/2024JENIFERABRAZO SCOTTSDALE CAMPUSPeg LIVINGSTONDOB: [facility] [address] 175Tel: ~~(41 (HP)Secondary Insurance:MEDICAL MUTUALPolicy Number: [id number] Date:2024-02-24 MUNIRA CHESTERUniversity [facility]als [facility]04/07/2024JENIFERABRAZO SCOTTSDALE CAMPUSPeg LIVINGSTONDOB: [facility] 175Tel: ~~(41 (HP)Primary Insurance:MEDICAREPolicy Number: [id number] Date:6070-36-16CS [address]Iepuuglx,[place] [address]TG: RCARLA COATESSamaritan Hospital04/07/2024MUNIRA LIVINGSTONDOB: [facility] [address] 175Tel: ~~(41 (HP)Secondary Insurance:MEDICAL MUTUALPolicy Number: [id number] Date:7123-00-21NUMXCYNF SCHNEIDERUniversity Hospitals Conne[facility] Center03/24/2024MUNIRA SCHNEIDERDOB: [facility] [address] 175Tel: ~~(41 (HP)Primary Insurance:MEDICAREPolicy Number: [id number] Date:2945-62-53KN [address] [address]RXWFRNVCP,[place] [address]CT: RCARLA COATESSamaritan Hospital03/24/2024MUNIRA LIVINGSTONDOB: [id number] [facility] [address] 175Tel: ~~(41 (HP) Secondary Insurance:MEDICAL MUTUALPolicy Number: [id number] Date:8186-82-26MYRFSAPVMcKitrick Hospital02/24/2024 MUNIRA STURGIS HOSPITALB: [id number] [facility] [address] 175Tel: ~~(41 (HP)Primary Insurance:MEDICAREPolicy Number: [id number] Date:5265-65-57ZU [address]curfrjo,[place] [address]MU: rDEEMcKitrick Hospital02/24/2024CARLA STURGIS HOSPITALB: [id number] [facility] [address] 175Tel: ~~(41 (HP)Secondary Insurance:MEDICAL MUTUALPolicy Number: [id number] Date:2024-02-05 [facility]
--- OUTSIDE RECORDS SUMMARY | 2025-01-26 03:30 | XMS_ITS ---
Author Organization [facility] in [place] Address [address] [place] [address] Care Team Providers Care Machine Tech Name Role Phone Andrea Wu DO Primary Care Provider Unavaila AZAM Aparicio [phone] REASON FOR VISIT MD Encounters Encounter Location Date Provider Diagnosis [facility] On[facility] [address] [place] [address] 01/26/2025 AZAM VILLA Plan Of Treatment No Information Progress Notes * Ivory CHESTEROB:[birth year] (74 yo F)Acc No.[id number]:01/26/2025 UNLOCKED PROGRESS NOTE Progress Notes Patient: Munira CHAIDEZ :?AZAM VILLA M.D.:1950???Age:74 Y ???Sex:FemaleDate:01/26/2025Phone:[phone]:[address] [place] [address], [place], [place]Fkp:Andrea Wu DO Subjective: * Chief Complaints: * 1 . MD. * Medical History: Objective: * Vitals: Assessment: Plan: * Treatment: * * Electronic signature of AZAM VILLA MD on 02/08/2025 at 07:26 AM ESTSign off status: PendingVisit Status:?VOICEMSG (Voice) * Provider: Racheal VILLA M.D. Date: 03/28/2024 Generated for Printing/Faxing/eTransmitting on:?02/08/2025 07:26 AM EST
--- OUTSIDE RECORDS SUMMARY | 2025-02-05 04:24 | XMS_ITS | Continuity of Care Document ---
Author Organization [facility] Address [address] [place] [address] Phone Care Team Providers Care Dinkey Operator Slag Name Role Phone Andrea uW DO Primary Care Provider [phone] Andrea Wu DO Attending Provider Chrissy Hector MD Attending Provider [phone] Elijah Botello MD Attending Provider Care Teams Patient Care Team Team Status: Active Member Role/Relationship Status Dates Andrea Wu DO Primary Care Provider Active Visit Care Team Team Status: Inactive Member Role/Relationship Status Dates Andrea Wu DO Primary Care Provider Active Start: December 22, 2024 End: December 22Filipe Solo ProviderActiveStart: December 22, 2024 End: December 22, 2024 Visit Care Team Team Status: Active Member Role/Relationship Status Dates Andrea Wu DO Primary Care Provider Active Start: January 19, 2025 Suha Brantley ProviderActiveStart: January 19, 2025 Visit Care Team Team Status: Inactive Member Role/Relationship Status Dates Elijah Botello MD Attending Provider Active Star t: January 25, 2025 End: January 25Nolvia Solo Care ProviderActiveStart: January 25, 2025 End: January 25, 2025 Visit Care Team Team Status: Inactive Member Role/Relationship Status Dates Andrea Wu DO Primary Care Provider Active Start: January 25, 2025 End: January 25, 2025Suha Jackson ProviderActiveStart: January 25, 2025 End: January 25, 2025 Patient Care Team Team Status: Inactive Member Role/Relationship Status Dates Andrea Wu DO Primary Care Provider Active Start: February 05, 2025 End: February 05enida Wu DOAttending ProviderActiveStart: February 05, 2025 End: February 05, 2025 Chief Complaint and Reason for Visit Chief Complaint Admit Date back pain December 22, 2024 9: 42am M25.512 - Pain in left shoulder January 25, 2025 9:25am OP SP LT SHOULDER PAIN REQ INJ January 25, 2025 10:40am Wellness February 05, 2025 8:21am Reason for Visit Admit Date Low back pain December 22, 2024 9: 42am Lumbar spondylosis December 22, 2024 9: 42am Osteoporosis December 22, 2024 9: 42am Tear of left supraspinatus tendon Novemb 2024 10:40am Allergies, Adverse Reactions, Alerts Allergen Type Severity Reaction Last Updated Verified Status amoxicillin Allergy Unknown Itching, Rash January 172024 8:35am Yes Active iodine Allergy Unknown Unknown Reaction February 05, 2025 8:35am Yes Active Penicillins Allergy Unknown Unknown Reaction Novembe r 2024 8:35am Yes Active Sulfa (Sulfonamide Antibiotics) Allergy Unknown Unknown Reaction February 05, 2025 8:35am Yes Active sulfacetamide Allergy Unknown Unknown Reaction Novem 2024 8:35am Yes Active sulfur Allergy Unknown Unknown Reaction February 05, 2025 8:35am Yes Active bee venom protein (honey bee) Allergy Unknown Anaphylaxis February 05, 2025 8:35am Yes Active Iodinated Contrast Media Allergy Unknown Anaphylaxis February 05, 2025 8:35am Yes Active idp dye Allergy Unknown Unknown Reaction June 1:32pm No Active Wasp venom Allergy Unknown Anaphylaxis October 21, 2018 2:21pm No Active Social History Smoking Status Status Start Date End Date Date of Observa tion Never smoked tobacco (finding) November 11, 2018 8:41am Observation Status Observation Response Date of Response Legal Sex Female (finding) Sex Assigned At BirthFemaleMay 1950 Family History Relationship Condition Age at Onset Recorded Date/T margaret mother Malignant neoplasm of lung Unknown Malignant neoplasm of pancreasUnknownDiabetes mellitusUnknownfatherPneumonia UnknownChronic headache disorderUnknownsisterMalignant neoplasm of breastUnknown brotherAcute poliomyelitisUnknownbrotherMyocardial infarctionUnknownbrother Malignant neoplasm of colonUnknownfatherDeceasedUnknownMalignant neoplasmUnknown motherDiabetes mellitusUnknownDeceasedUnknownMalignant neoplasmUnknown Problems Active Problems Problem Diagnosis/Recorded Date Onset Date Status C omments Small bowel stricture December 29, 2023 3:57pm Unknown Active Medicare annual wellness visit, subsequentFebruary 02, 2024 4:23pmUnknown ActiveScreening mammogram for breast cancerFebruary 02, 2024 4:41pmUnknown ActiveLow back painOctober 2024 9:09amUnknownActiveOsteoporosisNov2023 4:25pmUnknownActiveTear of left supraspinatus tendonNov2024 11:33amUnknownActiveMigrainesAugust 2018 1:28pmUnknownActive HypothyroidismAugust 2018 2:22pmUnknownActiveIron deficiency anemiaOctober 2023 3:57pmUnknownActiveLeft shoulder painNovember 2024 11:27am UnknownActiveAllergic rhinitisOctober 2023 3:58pmUnknownActiveHypertension October 21, 2018 1:26pmUnknownActiveLumbar spondylosisOctober 2024 9:09am UnknownActiveMRI: L2-3 mod left foraminal stenosis, L3-4 mod left foraminal stenosis, L5S1 mod right foraminal stenosis - hronic sinusitisJune 2023 3:20pmUnknownActiveAsthmaAugust 2018 1:26pmUnknownActive Medications Medication Status Dose Units Route Directions Qty Days Refills S tart Date Stop Date End Date Reason(s) Instructions Adherence Codeine-Guaifenesin 10-100 mg/5 mL liquid Discontinued 5 ML PO Every 6 hours as needed for cough 200 10 0 June 18, 2023 11:00pm August 09, 2023 12:02pmCough Cough, unspecifiedCodeine-Guaifenesin 10-100 mg/5 mL fkoagbXdcofxhjtaey8AKEH Every 6 hours as needed for erkug199924Yfs 24th, 2024 12:01pmMay 2023 3:54pmCough Cough, unspecifiedCodeine-Guaifenesin 10-100 mg/5 mL xpgsjuFdchmhurzbms2LUQJ Every 6 hours as needed for klrqs975480Mfn 2023 3:54pmNovember 2023 8:43amCough Cough, unspecifiedAlendronate 70 mg tabletDiscontinued0.ROUTE.EMJHZVO656Osfzoep 24th, 2024 11:33amSept2024 6:20amTAKE 1 TABLET ONCE WEEKLY 30 MINUTES BEFORE THE FIRST FOOD, BEVERAGE OR MEDICINE OF THE DAY WITH PLAIN WATER Pantoprazole 40 mg tablet,delayed release (DR/EC)Epryuzsutzrq97EAXAAwmgeRkaytvgb 11th, 2024 12:00amNoveavenir [facility] 2023 1:00pmFamotidine 20 mg tabletDiscontinued 20MGPODaAsh[facility]2023 12:00[facility] 2023 1:00pmLevothyroxine 100 mcg tabletDiscontinued0.ROUTE.PGAKLNR274Ympklrov2023 12:59pm[facility] 2024 12:39pmTAKE 1 TABLET DAILY ON AN EMPTY STOMACH (REPLACING 88MCG) Pantoprazole 40 mg tablet,delayed release (DR/EC)Discontinued0.ROUTE.ZMMZCJX526 January 27, 2024 12:59pm[facility] 2024 12:39pmTAKE 1 TABLET DAILY ON AN EMPTY STOMACH FOLLOWED IN 30 MINUTES BY BREAKFASTFamotidine 20 mg tablet Discontinued0.ROUTE.XSXLVIP802Nzbfsssl2023 12:59pm[facility] 2023 9:02amTAKE 1 TABLET AT BEDTIMEAtorvastatin 10 mg tabletDiscontinued0.ROUTE .UDJVIPS018Uhiovwtx2023 1:00pm[facility] 2024 7:00amTAKE 1 TABLET EVERY EVENINGFluticasone Furoate-Vilanterol (Breo Ellipta) 200-25 mcg/dose blister with axdggpNwvlvwhirujr9AVKKSUOYZVGJSRpnst19094Jlcwrixr 2024 9:23am February 05, 2025 9:14amAmlodipine 5 mg tabletActive0.ROUTE.MBIDJJS142Mfncttkw 2024 9:06amTAKE 1 TABLET DAILYComplies with drug therapyMontelukast 10 mg tabletActive0.ROUTE.TZEIMAP473Dotwophp 2024 1:14pmTAKE 1 TABLET DAILY Complies with drug therapyAlbuterol Sulfate 90 mcg/actuation HFA aerosol inhaler Active0.ROUTE.EIQBKZK19.511March 2024 7:50amUSE 2 INHALATIONS ORALLY EVERY 4 HOURS NEEDED FOR COUGH OR SHORTNESS OF BREATHComplies with drug therapy Azithromycin 500 mg yilydoRtkiykpqvapw947OEQGShqgk500Aumw 2024 11:00pm January 19, 2025 12:19pmAlendronate 70 mg uuasxpFdmxxv44LNMKwiwil December 09, 2024 6:19amComplies with drug therapyFamotidine 20 mg tablet Dchbxg54SGYZWawfk at orhhqkp39320Mfkrufuz 2024 12:38pmComplies with drug therapyFluticasone Propionate 50 mcg/actuation spray,suspensionDiscontinued2 AHUUADECSYEONBULsmyt96724Csjnkcat 2024 12:38pm[facility] 2024 9:12am sinus symptomsLevothyroxine 100 mcg ywskysVbtlkn891ECOJBIerlc67519Ouesrcun 2024 12:38pmTake on an empty stomachComplies with drug therapyPantoprazole 40 mg tablet,delayed release (DR/EC)Drcrosydldtv57ORGGPldhp bziphxr44962Bijazcxv 4th, 2025 12:39pm[facility] 2024 9:15amTake on an empty stomach, 30 minutes prior to bkfstAtorvastatin 10 mg pzgvhuCybwxq03ATHLDrqbl oqrpnev10147Wksqfiok 2024 7:00amComplies with drug therapyNabumetone 750 mg QozkplIbnxyuqmiegl3517RV PODailyAugust 2018 11:00pmFormerly [facility]2023 8:45amAtorvastatin 10 mg ybzuvzSyeqyimhcsll59GYNCDqbjxQfefhb 2018 11:00pmNovwickenburg [facility] 2023 1:00pm hyperlipidemiaAlendronate 70 mg zpgkhrKmskbpapulpt01SHBHakync weekAugust 2018 11:00pmOctober 2023 11:33amosteoporosisCalcium Carbonate (Tums) 300 mg (750 mg) Tablet,VuqapqagBgshelwvukkh3RVPMRWy Directed as needed for GERD October 20, 2018 11:00[facility] 2023 8:43amOmeprazole 40 mg Capsule,Delayed Release(Dr/Ec)Efctxpmskcmy61BPEOIjczfEmxpyz 2018 11:00pm February 05, 2024 8:45amGERD/PUDLoratadine-Pseudoephedrine (Claritin-D 24 Hour) 10-240 mg Tablet Extended Release 24 IvVgjsocavmuun3MGHCVAtdavPahqvs 2018 11:00[facility] 2023 8:44amSinus symptomsLevothyroxine 100 mcg Tablet Hmocnwoxegck798SVYARMlsccVnqorb 2018 11:00[facility] 2023 1:00pm grave's dx.Ucijgaponwzy-Tkr-Tsxbzkhe 50-770-60 mg TabletActive0.5TABPOFour times daily as needed for HeadacheAugust 2018 11:00pmComplies with drug therapy Betamethasone Valerate 0.1 % XknwpVzwepfjvpntu1SNUWNHALICTGMVm DirectedAugust 2018 11:00[facility] 2024 12:19pmCalcium Carbonate (Calcium 500) 500 mg calcium (1,250 mg) Tablet,OjdyxobxSddxwbiyazbm162KPPPAvfla times dailyAugust 2018 11:00[facility] 2023 8:43amosteoporosisAlbuterol Sulfate 90 mcg/actuation HFA aerosol hlsabutImzofxybbxmz6YSXPSPVTZWKNSGIj Directed as needed for Shortness Of Breath Or WheezingAugust 2018 11:[facility] 20[facility] 7:50amBenazepril 10 mg dcfdghAvlomednrygj15HJCYNjhkgYywkqm 2018 11:00[facility] 2023 8:42amHTNFluticasone Propionate 50 mcg/actuation Guffey,YaxumsxhufXuyxatkyntdz4XUYSROQAGCEQFAHHpasfYamsua 2018 11:00[facility] 2023 4:46pmsinus jeykbovtCplayfo-Lwohmmlylywsi-Gudbqoyg (Pain-Off) 250-250-65 mg MtqrazNvjzwiocrznz0QTUWFWb Directed as needed for HeadacheAugust 2018 11:00pmFebruary 05, 2024 8:42amCyclosporine (Restasis) 0.05 % JuuytkeyrdcDltktwxerhxs5MSTZTAPHUVGGCLCPwzph dailyAugus2018 11:00pm February 05, 2024 8:43amDry eyesPsyllium Husk (Metamucil) 0.52 gram Capsule Zdjuuzuzfynm8FGYOWLtqkv dailyAugust 2018 11:00pmFebruary 05, 2024 8:46am IBSEstradiol 10 mcg tabletDiscontinuedAugus2018 11:00pmAugust 2018 2:20pmEstradiol (Yuvafem) 10 mcg VgdpxxVyeejsbdugnp40VBJDnfqh a Weekgus2018 11:00pmFebruary 05, 2024 8:44amFluticasone Furoate-Vilanterol (Breo Ellipta) 200-25 mcg/dose blister with xuzgjjSvirvzevxkwk7IEIZESXVHAYBEWMasoj October 20, 2018 11:00pmFebruary 05, 2024 8:44amAsthmaAmlodipine 5 mg tablet Yeyycschqpqr5EXOZXldfxHrpvw 2023 12:00amMarch 2023 4:46pmMontelukast 10 mg kjswttFmmygduydhpq75TXMFBataiFrukv 2023 12:00amMarch 2023 4:46pm Amlodipine 5 mg kynphoZkxovcryfyfp0YNOWYvvps98816Kqvnc 2023 4:43pmFebruary 2024 9:07amMontelukast 10 mg blguiaJzocyuaqfmov49ETGSNkfkv34828Rjpgv 2023 4:44pmFebruary 2024 1:14pmFluticasone Propionate 50 mcg/actuation spray,jxeqaokdtaKyjctrkqfzyb8CFGLJCMLJEMQELNFodam40753Vtpyt 2023 4:44pm January 19, 2025 12:39pmsinus symptomsDoxycycline Hyclate 100 mg capsule Bovydrgdmzke325BCMYArzzg46296Bpqro 2023 11:00pmFebruary 05, 2024 8:43am take bid x 7 days then qd x 7 daysPrednisone 20 mg qcgboaTraretpwwbqi07BKYOQt Jxoksvmo459Xjlub 2023 11:00pmFebruary 05, 2024 8:45am1 tab tid w/ food x 3 days, then bid w/ food x 3 days, then qd w/ food x 3 daysDoxycycline Hyclate 100 mg soabrseWjudbadttqdb992LSKZQxmqj wsorr68372Xnus2023 11:00pmFebruary 05, 2024 8:43amFluticasone Furoate-Vilanterol (Breo Ellipta) 200-25 mcg/dose blister with zxkvjtXobbzupopxtz8HSNJVHZCGPTCFUjlhhSqhgymnx 20th, 2024 12:00am April 20, 2024 9:24amCetirizine 10 mg oyjisyAmprfd33VWNVFlrcu as needed February 05, 2024 12:00amComplies with drug therapyEpinephrine 0.3 mg/0.3 mL auto-injectorActive0.3MGIMevery 5 to 15 minutes as neededFebruary 05, 2024 12:00amdo not exceed 3 doses per episodeComplies with drug therapyPolysaccharide Iron Complex (Ferrex 150) 150 mg iron wagbyznWtekfz592CAERYmploQfuydpyt 20th, 2024 12:00amComplies with drug therapyFluticasone Propionate (Xhance) 93 mcg/actuation aerosol breath hmansjrusShbykq5YXAMVXNXTFEUANPGrnro 2023 12:00aminto each nostrilComplies with drug therapyEstradiol 0.01 % (0.1 mg/gram) weagmFlmsfm4UUCFIZODESTLTJGZMFcnhm 2023 12:00amComplies with drug therapyNitrofurantoin Macrocrystal 100 mg capsule Mryyqg511KYOGHlyxc at bedtimeFebruary 05, 2024 12:00amafter intercourse Complies with drug therapyMetronidazole 0.75 % (37.5mg/5 gram) gelActive1 APPLICATORVAGINALTwice dailyFebruary 05, 2024 12:00amComplies with drug therapyFamotidine 20 mg nfmfgtGguseywvlfjb36OXZUEpgmt at enkqxiv70926Txxwhoqs 20th, 2024 9:02amNovember 2024 12:39pmFluticasone Furoate-Vilanterol (Breo Ellipta) 100-25 mcg/dose blister with lnailrKozgqj4PMMBNQHPOEUCGKbfln860670 February 05, 2025 12:00amComplies with drug therapyPantoprazole 40 mg tablet,delayed release (DR/EC)Gnpkku42IPJYYparx nbtjo298127Bzalgfhs 21st, 2025 9:14amTake on an empty stomach, 30 minutes prior to bkfstComplies with drug therapyCelecoxib (Celebrex) 200 mg tajtapuPrlpln308FEHJEqklh54522Gozkhix 2024 11:00pmComplies with drug therapy Immunizations Immunization Event Date Not Given Reason Dose Number Manager Employment 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 Number Reason(s) Given Vaccine Information Statement (VIS) Detail Administration Location COVID-19 mRNA-1273 (Moderna) May 05, 2020 COVID-19 mRNA-1273 (Moderna)June 02OVID-19 mRNA-1273 (Moderna)January 23OVID-19 mRNA-1273 (Moderna)July 042COVID-19 (MODERNA) 12Y and olderNovember , [id number]-79 (MODERNA) 12Y and olderOctober , [id number]-86 mRNA Bivalent Booster ([facility] [employer] [facility])December 22, [id number] TIV High-Dose 65YR+December 17, 2018Fluzone QIV High-Dose 65YR+December 18, 2021 QR199QSDsoiwrlms, trivalentOctober , [id number], trivalentOctober , [id number], trivalentOctober , [id number] vaccine, quadrivalent, adjuvantedOctober 2022Influenza vaccine, quadrivalent, adjuvantedSeptember , [id number], seasonal, injectable, pfOctober , 2015Influenza Quadrivalent PF MDCKOctober [id number], unspecified formulationOctober 2016influenza, unspecified formulation December 07, 2019influenza, unspecified formulationSept2020 influenza, unspecified formulationOctober neumococcal Conjugate Vaccine, 13 valentOctober 2016Pneumococcal Polysacc. Vaccine, 23 valent January 04, 2016Pneumococcal Polysacc. Vaccine, 23 valentOctober 2018 Quadrivalent InfluenzaOctober [id number] InfluenzaSeptember [id number], preF3, adj, pfOctober 2022LM7J7 Medical Equipment Device Date Implanted Device Details ANCHOR SUTURE FT III 5.5X16.3M November 11, 2018 Procedures Procedure Date Performed Status XR shoulder LT min 2V* January 25, 2025 9:25a m completed XR lumbar spine 6V w bending December 22, 2024 9 :09am completed Relevant Diagnostic Tests and/or Laboratory Data Laboratory Results Test Collection Date/Time Result Date/Time Result Interpretation Reference Range Result Comment Performing Site Vitamin B12 Level January 19, 2025 7:27am January 19, 2025 7:27am 712 pg/mL [id number] at: [facility] [id number] Director: Bj Hair PhD, Phone: [phone]-Eatlbai Vitamin D TotalNov2024 7:27amNovemb2024 7:27am47.5 ng/mL<20 ng/mL Vit D xdjqzuihg07-<30 ng/mL Vit D respspexztie75-804 ng/mL Vit D sufficient>100 ng/mL Potential ToxicityFerritinNov2024 7:27amNovember 2024 7:61vr566.0 ng/mLAbove high normal8.0-252.0Iron SaturationNov2024 7:27amNovemb2024 7:27am26.8 %Anion GapNov2024 7:27amNovember 2024 7:27am15.6Basophils # (Auto)January 19, 2025 7:27am January 19, 2025 7:27am0.1 10 3/uL0.0-0.1Iron LevelNov2024 7:27am January 19, 2025 7:27am77.0 ug/dL50.0-170.0Albumin/Globulin RatioNovember 2024 7:27amNovember 2024 7:27am1.1Basophils (%) (Auto)January 19, 2025 7:27amNovember 2024 7:27am0.4 %0.2-2.0Total Iron Binding CapacityNovember 2024 7:27amNovember 2024 7:19df115.0 ug/dL250.0-450.0AlbuminNovember 2024 7:27amNovember 2024 7:27am4.0 g/dL3.4-5.0Eosinophils # (Auto) January 19, 2025 7:27amNovember 2024 7:27am0.6 10 3/uL0.0-0.7Alkaline PhosphataseNovember 2024 7:27amNovember 2024 7:61lz204 U/LAbove high uvplfp80-852Gpcfzjzbuji (%) (Auto)January 19, 2025 7:27amNovember 2024 7:27am5.0 %0.9-7.0Alanine Aminotransferase (ALT/SGPT)January 19, 2025 7:27am January 19, 2025 7:27am25 U/O24-32HmiatpbqwcQcklhwgc 2024 7:27amNovember 2024 7:27am41.1 %36.0-48.0Aspartate Amino Transf (AST/SGOT)January 19, 2025 7:27amNovember 2024 7:27am17 U/J20-43VyjfmsazafUovqyugj 2024 7:27amNovember 2024 7:27am13.5 g/dL12.0-16.0BUN/Creatinine RatioNovemb2024 7:27amNovember 2024 7:27am17.0Immature Granulocyte # (Auto) January 19, 2025 7:27amNovember 2024 7:27am0.06 10 3/uLAbove high normal 0.00-0.03Blood Urea NitrogenNov2024 7:27amNovember 2024 7:27am 16.0 mg/dL7.0-18.0Immature Granulocyte % (Auto)January 19, 2025 7:27amNovember 2024 7:27am0.5 %0.0-0.5Calcium LevelNovember 2024 7:27amNovember 2024 7:27am9.2 mg/dL8.5-10.1Lymphocytes # (Auto)January 19, 2025 7:27am January 19, 2025 7:27am1.2 10 3/uL1.2-3.8Chloride LevelNovember 2024 7:27amNovember 2024 7:50hu883 mmol/J01-657Nhfitghwszl (%) (Auto)January 19, 2025 7:27amNovember 2024 7:27am10.3 %Below low qftyfo05.5-60.0Carbon Dioxide LevelNovember 2024 7:27amNovember 2024 7:27am26.7 mmol/L 21.0-32.0Mean Corpuscular HemoglobinNovember 2024 7:27amNovember 2024 7:27am31.3 pg26.7-34.0CreatinineNovember 2024 7:27amNovember 2024 7:27am0.94 mg/dL0.55-1.02Mean Corpuscular Hemoglobin ConcentNovember 2024 7:27amNovember 2024 7:27am32.8 g/dL29.9-35.2Estimated GFR ()January 19, 2025 7:27amNovember 2024 7:27am>60>=60 mL/min/1.73m 2Mean Corpuscular VolumeNovember 2024 7:27amNovember 2024 7:27am95.4 fL81.0-99.0Estimated GFR (Non- AmericanNovember 2024 7:27amNovember 2024 7:34ba23Ubtfc low normal>=60 mL/min/1.73m 2Monocytes # (Auto)January 19, 2025 7:27amNovember 2024 7:27am0.8 10 3/uL0.3-0.8GlobulinNov2024 7:27amNovember 2024 7:27am3.6 g/dLMonocytes (%) (Auto)January 19, 2025 7:27amNovember 2024 7:27am6.6 %1.7-12.0Glucose LevelNov2024 7:27amNovember 2024 7:27am89 mg/dA90-012Euls Platelet VolumeNov2024 7:27amNovember 2024 7:27am9.3 fLBelow low normal9.5-13.5Potassium LevelNov2024 7:27amNovemb2024 7:27am3.3 mmol/LBelow low normal3.5-5.1Neutrophils # (Auto)January 19, 2025 7:27amNovember 2024 7:27am8.7 10 3/uLAbove high normal1.4-6.5Sodium LevelNov2024 7:27am January 19, 2025 7:29mv224 mmol/E243-397Ieadokwgzxw (%) (Auto)January 19, 2025 7:27amNovember 2024 7:27am77.2 %Above high kpgput23.0-75.0Total BilirubinNov2024 7:27amNovember 2024 7:27am0.6 mg/dL0.2-1.0 Platelet CountNov2024 7:27amNovember 2024 7:06rk019 10 3/uL 150-450Total ProteinNov2024 7:27amNovember 2024 7:27am7.6 g/dL 6.4-8.2Red Blood CountNov2024 7:27amNovember 2024 7:27am4.31 10 6/uL4.20-5.40Red Cell Distribution WidthNov2024 7:27amNovember 2024 7:27am13.0 %11.0-15.0Corrected White Blood CountJanuary 19, 2025 7:27am January 19, 2025 7:27am11.3 10 3/uLAbove high normal4.0-11.0 Diagnostic Imaging Reports Author Abe Lu [facility] CenterAuthoredNov2024 8:33pmReport Dictated Date/TimeDictated ByStatusRadiology ReportJanuary 25, 2025 8:33pm Juan Antonio [facility] [address] [place] [address] XRay Report Signed Patient: Munira Chester MR#: [id number] : 1950 Acct:[id number] Age/Sex: 74 / F ADM Date: 5 Loc: [facility] Room: Type: [facility] Attending Dr: Elijah Botello MD Copies to: Elijah Botello MD~ Ordering Provider: Elijah Botello MD Date of [...] Lu M.D. 01/25/2025 8:34 PM Dictation Location: [place] [address] Transcribed By: PWS 01/25/252033 Dictated By: Abe Lu DO 01/25/252032 Signed By: <Electronically signed by Abe Lu DO in [place]> 01/25/252033 Vital Signs Vital Reading Result Reference Range Collection Date/Time Height 61 [in_i] December 22, 2024 8:34giDmyvlx47.11 kgOctober 2024 8:52amHeart Rate97 /min 60-100October 2024 8:52amRespiratory rate12 /ezp80-66Qsmxonp 2024 8:52amBP Pqktoywz526 mm[Hg]100-140October 2024 8:52amBP Exayikxrw31 mm[Hg] 60-100Oct2024 8:52amBMI (Body Mass Index)32.1 kg/w8Qwphibg 2024 8:41hkAblfdz31 [in_i]January 25, 2025 10:04pvOxfsse98.57 kgJanuary 25, 2025 10:56amBMI (Body Mass Index)30.2 kg/n3VrbatnrkJanuary 25, 2025 10:34abDcfvdk79 [in_i]February 05, 2025 8:27yxIphqgr54.35 kgFebruary 05, 2025 8:38amHeart Rate71 /hwb89-400PjniohitFebruary 05, 2025 8:38amRespiratory rate12 /ior38-41SuiwbjwfFebruary 05, 2025 8:38amBP Eammhrrf271 mm[Hg]100-140February 05, 2025 8:38amBP Qockzrtom18 mm[Hg]60-100February 05, 2025 8:38amBMI (Body Mass Index)31.4 kg/g1NjokoqpvFebruary 05, 2025 8:38am Advance Directives Advance Directive Response Recorded Date/ Time Advance Directives No September 08 7:51am Insurance Providers Yulior Muniraerick Chester Address [address] [place] [id number] Info.Home Phone: Payer Group Member ID Coverage Type Subscriber Relationship to Subscriber Effective Date Expiration Date MMO Id: [id number] Schneider Id: [id number] [address] [place] [id number] Home Phone: Email: [email or web address] LYN/DEIDRA [id number] Encounters Encounter Location(s) Arrival/Admit Date Discharge/Departure Date Discharge/Departure Disposition Provider(s) Departed Physician/ Provider [facility] December 22, 2024 9:42am December 22, 2024 10:14am Discharged to home care or self care (routine discharge) Andrea Wu DO Non-patient / Non-visit -[facility]2024 7:27am GLENN Brantleyeparted Clinical-XRay [facility] 2024 9:25amNovember 2024 9:26amDischarged to home care or self care (routine discharge)GLENN Gómezeparted Physician/Provider [facility] 10:40amNovember 2024 11:12am Discharged to home care or self care (routine discharge)Elijah Botello MD Departed Physician/Provider Office Visit-[facility] 2024 8:21amNovember 2024 9:23amDischarged to home care or self care (routine discharge)Andrea Wu , DO Recent Diagnosis Onset Date Admit Date Low back pain Unknown December 22 9:42am Lumbar spondylosis Unknown December 22, 2024 9:42am Osteoporosis Unknown December 22 9:42am Tear of left supraspinatus tendon Unknown January 25, 2025 10:40am Assessments Diagnosis Onset Date Resolution Status Admit Date Low back pain acuteOctober 2024 9:42amLumbar spondylosisacuteOctober 2024 9:42am OsteoporosisacuteOctober 2024 9:42amTear of left supraspinatus tendonacute January 25, 2025 10:40am Plan of Treatment Author Andrea Wu [facility] 2024 9:18amContinue Ca and Vit D supplements along w/ weight bearing exercise. XR lumbar spine to r/o compression fx I have instructed this patient to avoid bending, twisting or lifting. I have also instructed on use of intermittent heat and ice as needed. They may schedule a massage or gentle manipulation. I instructed them on the safe use of Tylenol, Lidocaine and stretching exercises. I informed them of alternative modes of treatment for severe pain, which may include referral to physical therapy or pain management. Instructed on ROM and stretching exercises (handouts reviewed w/ patient) Instructed to continue heat/ice and Lidocaine as needed. Rx Celebrex sent to pharmacy to start or inflammation and pain. Refer to PT for evaluation and treatment Author Georgina Burgos [facility] 2024 11:09amX-rays and MRI were reviewed with patient in detail. This appears to be pain secondary to rotator cuff tear. We discussed and demonstrated gentle motion exercise and rotator cuff strengthening exercise. Discussed the use of non-steroidal anti-inflammatory medication. At this point the patient will try to live with the condition, understanding a rotator cuff tear can worsen and enlarge with time. A 1/1cc Marcaine / Kenalog cortisone injection was performed into the subacromial space under sterile technique. Patient tolerated the injection well with no adverse reaction. If she would like to pursue surgery we would get an updated MRI. Note scribed by GERALD Gould, reviewed and amended by Elijah Botello M.D. Future Tests Future scheduled test information is unavailable Pending Tests Pending diagnostic test information is unavailable Future Visits Future appointment information is unavailable Future Procedures Future procedure information is unavailable Future Medications Future medication information is unavailable Patient Instructions Instruction Admit Date Low back pain in adults December 22 9:42am
--- OUTSIDE RECORDS SUMMARY | 2025-02-08 07:25 | XMS_ITS | Clinical Summary ---
Author Organization [facility] Address [address] [place], [place] [address] Care Team Providers Care Insurance Verification Rep Name Role Phone Moustapha Haley MD Unavailable [phone] Chrissy Hector MD Unavailable [phone] Andrea Wu DO Primary Care Provider [phone] Allergies Active AllergyReactionsCriticalityNoted DateCommentsAmoxicillinOther: See Nfqapsvx82/11/2024Contrast Dye12/08/2007Sulfa (Sulfonamide Antibiotics) 12/08/2007 Medications MedicationSigDispense QuantityRefillsLast FilledStart DateEnd DateStatus levothyroxine sodium(SYNTHROID 100 MCG TAB) Take one(1) tablet daily.ctive fluticasone-vilanterol (BREO ELLIPTA) 100-25 mcg/dose inhaler Inhale 1 Inhalation as instructed once daily.Active EPINEPHrine (EPIPEN) 0.3 mg/0.3 mL auto-injector Inject 0.3 mg intramuscularly as needed.Active fluticasone (FLONASE) 50 mcg/actuation nasal spray Use 1 Magnolia in each nostril once daily.Active atorvastatin (LIPITOR) [...] ORAL) Take by mouth.Active vit A/vit C/biotin/zinc/copper (JFZU-OIQU-EPZL,VIT A,C-BIOTIN, ORAL) Take by mouth.Active aspirin 325 [...] right lower extremity 04/11/2016Episodic tension-type headache, not /21/2016 Immunizations ImmunizationAdministration DatesNext Dueinfluenza (HD-IIV4) vaccine, age [...] 6+ mo, quadrivalent, PF (FLUCELVAX)01/05/2019influenza vaccine, unspecified ippbxqdxdjx40/02/2019pneumococcal conjugate (PCV13) vaccine, 13 valent (PREVNAR 13)01/10/2017pneumococcal polysaccharide (PPV23) vaccine, 23 valent (PNEUMOVAX 23)01/05/2019,01/04/2016respiratory syncytial virus (RSV) vaccine, adjuvanted (AREXVY)12/31/2022 Family History Medical HistoryRelationCommentsCancerFatherArthritisMaternal GrandmotherRACancer MotherRelationStatusCommentsFatherMaternal GrandmotherMother Social History Tobacco UseTypesPacks/DayYears UsedDateSmoking Tobacco: NeverSmokeless Tobacco: NeverAlcohol UseStandard Drinks/WeekCommentsNo0 (1 standard drink = 0.6 oz pure alcohol)Area Deprivation IndexAnswerDate RecordedNational Score (1-100), lower number is lower bwmv978812/27/2023State Score (1-10), lower number is lower risk4 4Data from: https://www.neighborhoodatlas.medicine.[facility].edu/. 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 DateHR managerNot on fileNot on fileNot on file Last Filed Vital Signs Vital SignReadingTime TakenCommentsBlood Gtlwikwj415/8404 3:50 PM EDT Hmclf653407/13/2024 3:50 PM LXZUvlbbgrufko77.5 ??C (97.7 ??F)07/13/2024 3:20 PM EDTRespiratory Lljl816607/13/2024 3:20 PM EDTOxygen Jfkahlqiet14%07/13/2024 3:50 PM EDTInhaled Oxygen Concentration--Pjfdwz27.8 kg (165 lb)07/13/2024 12:52 PM JQPRlfsmz329 cm (5' 3 )07/13/2024 12:52 PM EDTBody Mass Index29.23007/13/2024 12:52 PM EDT Plan of Treatment Health MaintenanceDue DateLast DoneCommentsAnxiety Dgxhcagau55/11/1971Depression Mzdsauzcx53/11/1971Hepatitis C Zcvcueiul18/11/1971DTaP,Tdap,Td Vaccine (1 - Tdap)07/27/1971CT Kagvwxqxnqmq06/11/1998Cologuard (FIT-DNA)1997Colonoscopy 1997Colorectal Cancer Hbfyylwqr90/11/1998Diabetes Cjbyhfdvw41/11/1998Fecal Occult Blood1997Lipid Kgxqywgni21/11/8051Zkwkhsxhzhyow92/11/1998Shingrix Vaccine (1 of 2)2002Medicare Annual Wellness Visit07/16/2017Mammogram Tovalmukj45, 02/02/2022, 01/25/2021, Additional history exists Advance Directive Ivtammuyiq94/01/2025Covid-19 Vaccine ( season) , 02/14/2023, 12/22/2021, Additional history existsInfluenza Vaccine (#1), 12/31/2022, 12/18/2021, Additional history existsPneumococcal Vaccine: 50+Vyquinzbo07/21/2019, 01/10/2017, 01/04/2016Bone Density DbnjawqnaSyfabmfon81/28/2021, 12/30/2018RSV RrtehtbFyrnecngk20/16/2023 Medical Devices ImplantedTypeAreaManufacturerDevice IdentifierShelf Expiration DateModel / Serial / LotPinPinRight: Bone - ShoulderScrewScrewRight: Bone - Shoulder Insurance Care Teams Team MemberRelationshipSpecialtyStart DateEnd Andrea Wu DO [address] [place] [address] PCP - GeneralInternal Rwmximcm28/11/24 Moustapha Haley MD [address] [place] [address] [address] [place] [address] Internal Eprsbpys90/11/24 Chrissy Hector MD [address] [place] [id number] Hematology/Wxnznahn42/11/24
--- NOTE | 2025-02-08 07:26 | MM_ITS ---
Patient Name: SIA ALEXANDER MR#: [id number] : 1950 Exam Date: 02/08/2025 Ordering Doctor: DR CHUNG GOLDEN D.O. RADIOLOGY REPORT PROCEDURE: MM TOMOSYNTHESIS SCREENING BI COMPARISON: MM TOMOSYNTHESIS SCREENING BI, 02/03/2024. MM TOMOSYNTHESIS SCREENING BI, 01/30/2023. MG MAMM SCREEN 3D ALLEGRA CAD, 01/29/2022. MG MAMM ALLEGRA SCRN W CAD DIG, 02/17/2013. INDICATIONS: Screening Calculator Name NCI Breast Cancer Risk Assessment Tool 5 Year Breast Cancer Risk 6.60% Lifetime Breast Cancer Risk 16.40% Personal Breast Cancer No Personal Ovarian Cancer No Treatments None Family Cancers Sister with breast cancer at age 42; Aunt-maternal with breast cancer at age 38; Aunt-maternal with breast cancer at age ~55; Aunt-maternal with breast cancer at age ~56; Mother with pancreatic cancer at age 52; Sister with breast cancer at age 59. LOCATION: [facility] BREAST COMPOSITION: There are scattered areas of fibroglandular density. FINDINGS: DIAGNOSTIC CATEGORY 1--NEGATIVE. RIGHT BREAST: No significant suspicious finding. LEFT BREAST: No significant suspicious finding. RECOMMENDATIONS: ROUTINE MAMMOGRAM AND CLINICAL EVALUATION IN 12 MONTHS. Dictated by: Jj Arreguin DO on 02/08/2025 at 09:23 Approved by: Jj Arreguin DO on 02/08/2025 at 09:24
--- OUTSIDE RECORDS SUMMARY | 2025-02-08 07:26 | XMS_ITS | Clinical Summary ---
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 Role Phone Unavailable Primary Care Provider Unavailabl e Social History Tobacco UseTypesPacks/DayYears UsedDateSmoking Tobacco: Never AssessedUT Safety & EnvironmentAnswerDate RecordedFear of Current or Ex-PartnerNot on file 08/26/2023Emotionally AbusedNot on file08/26/2023hysically AbusedNot on file 08/26/2023Sexually AbusedNot on file08/26/2023hysically or Sexually AbusedNot on file08/26/2023CommentsUnknownSex and Gender InformationValueDate RecordedSex Assigned at BirthNot on fileLegal SvdMawrci71/10/2024 5:33 PM EDT Gender IdentityNot on fileSexual OrientationNot on file Plan of Treatment Not on file
--- OUTSIDE RECORDS SUMMARY | 2025-02-08 07:26 | XMS_ITS | Patient Health Record ---
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 Name Role Phone Bryce Andrea BRUCE Primary Care Provider Unavaila ble Krunal, Chrissy Unavailable [phone] KRUNAL, CHRISSY Unavailable [phone] Allergies Allergen (clinical drug ingredient) Drug/Non Drug Allergy documented on EMR Reaction Allergy Type Onset Date Status amoxicillin Amoxicillin rash Drug Allergy ActiveBee StinganaphylaxisAllergyActiveIodineanaphylaxisDrug AllergyActive Substance with sulfonamide structure and antibacterial mechanism of action (substance)Sulfa AntibioticsrashDrug AllergyActive Results Component Value Reference Range Notes CBC AUTO DIFF (Not yet revie wed by provider) Interpretation: Performing Lab: Notes/Report: [facility] , White Blood Count 5.8 4.0-11.0 10 3/uL Red Blood Count4.224.20-5.40 10 6/hGKpeivaqjtl51.112.0-16.0 g/lSYzwmqjyzoi59.0 36.0-48.0 %Mean Corpuscular Xsayfv56.481.0-99.0 fLMean Corpuscular Hemoglobin 31.026.7-34.0 pgMean Corpuscular HGB Conc33.629.9-35.2 g/dLRed Cell Distribution Width13.811.0-15.0 %Platelet Qhslv016840-643 10 3/uLMean Platelet Volume9.79.5- 13.5 fLNeutrophils Percent Auto57.043.0-75.0 %Lymphocytes Percent Auto26.420.5- 60.0 %Monocytes Percent Auto9.71.7-12.0 %Eosinophils Percent Auto5.90.9-7.0 % Basophils Percent Auto0.30.2-2.0 %Immature Granulocytes Pct Auto0.70.0-0.5 % Neutrophils Absolute Auto3.31.4-6.5 10 3/uLLymphocytes Absolute Auto1.51.2-3.8 10 3/uLMonocytes Absolute Auto0.60.3-0.8 10 3/uLEosinophils Absolute Auto0.30.0- 0.7 10 3/uLBasophils Absolute Auto0.00.0-0.1 10 3/uLImmature Granulocytes Abs Auto0.040.00-0.03 10 3/uLPerforming Lab:see noteML - [facility] IRON AND TIBC (Not yet reviewed by provider) Interpretation: Performing Lab: Notes/Report: [facility] ,Iron51.050.0-170.0 ug/dLTotal Iron Binding Uundtblv155.0250.0-450.0 ug/dL Percent Iron Umtrxpegsn19.0Performing Lab:see note - [facility] LB Vitamin B12 (Not yet reviewed by provider) Interpretation: Performing Lab: Notes/Report: [facility] ,Vitamin P42395300-1824 pg/mL Performed at: [facility] [address] [id number] Cloth Weigher: Bj Hair PhD, Phone: [phone] Performing Lab:see note - [facility] LBCBC AUTO DIFF (Not yet reviewed by provider) Interpretation: Performing Lab: Notes/Report: [facility] ,White Blood Count6.74.0-11.0 10 3/uLRed Blood Count4.094.20-5.40 10 6/uL Recpgmgyif76.912.0-16.0 g/jZYzrulvigji13.036.0-48.0 %Mean Corpuscular Igfbsk64.9 81.0-99.0 fLMean Corpuscular Lelsiqouuc51.526.7-34.0 pgMean Corpuscular HGB Conc 33.929.9-35.2 g/dLRed Cell Distribution Width14.711.0-15.0 %Platelet Ioypv366 150-450 10 3/uLMean Platelet Volume9.39.5-13.5 fLNeutrophils Percent Auto53.0 43.0-75.0 %Lymphocytes Percent Auto33.120.5-60.0 %Monocytes Percent Auto8.91.7- 12.0 %Eosinophils Percent Auto4.30.9-7.0 %Basophils Percent Auto0.40.2-2.0 % Immature Granulocytes Pct Auto0.30.0-0.5 %Neutrophils Absolute Auto3.61.4-6.5 10 3/uLLymphocytes Absolute Auto2.21.2-3.8 10 3/uLMonocytes Absolute Auto0.60.3-0.8 10 3/uLEosinophils Absolute Auto0.30.0-0.7 10 3/uLBasophils Absolute Auto0.00.0- 0.1 10 3/uLImmature Granulocytes Abs Auto0.020.00-0.03 10 3/uLPerforming Lab:see noteML - [facility] LBIRON AND TIBC (Not yet reviewed by provider) Interpretation: Performing Lab: Notes/Report: [facility] ,Gwhf752.050.0-170.0 ug/dLTotal Iron Binding Vxestzez396.0250.0-450.0 ug/dL Percent Iron Dqjuyfcwhr98.1Performing Lab:see noteML - [facility] LB VITAMIN D 25 [place] (Not yet reviewed by provider) Interpretation: Performing Lab: Notes/Report: [facility] ,Vitamin D36.4 <20 ng/mL Vit D deficient 20-<30 ng/mL Vit D insufficient 30-100 ng/mL Vit D sufficient >100 ng/mL Potential Toxicity Performing Lab:see noteML - [facility] LBPROF 14(COMP METB) (Not yet reviewed by provider) Interpretation: Performing Lab: Notes/Report: [facility] ,Zqioiw720041-025 mmol/LPotassium4.13.5-5.1 mmol/XTajpoefz40098-366 mmol/LCarbon Ahhptol63.221.0-32.0 mmol/LAnion Gap11.7Bxvuwqm3054-912 mg/dLBlood Urea Nitrogen 15.07.0-18.0 mg/dLCreatinine0.850.55-1.02 mg/dLEstimated GFR ( Brittaney>60 >=60 mL/min/1.73m 2Estimated GFR (Non- Ashley>60>=60 mL/min/1.73m 2BUN Creatinine Ratio17.9Ccqljwi6.08.5-10.1 mg/dLBilirubin Total0.50.2-1.0 mg/dL Aspartate Amino Hhiqxswlohg6194-11 U/LAlanine Vzbrqpqidxomiaon3775-25 U/L Alkaline Pdrquxuhokz9093-789 U/LTotal Protein7.06.4-8.2 g/dLAlbumin Level3.83.4- 5.0 g/dLGlobulin3.2Albumin Globulin Ratio1.2Performing Lab:see note - [facility] LBFERRITIN (Not yet reviewed by provider) Interpretation: Performing Lab: Notes/Report: [facility] ,Ndyqtehs22.08.0-252.0 ng/mLPerforming Lab:see noteML - [facility] LB CBC AUTO DIFF (Not yet reviewed by provider) Interpretation: Performing Lab: Notes/Report: [facility] ,White Blood Count8.54.0-11.0 10 3/uLRed Blood Count4.354.20-5.40 10 6/uL Dremxcsijo05.212.0-16.0 g/hJAguwcltsox32.536.0-48.0 %Mean Corpuscular Ycamdd94.1 81.0-99.0 fLMean Corpuscular Pwykvazwir44.326.7-34.0 pgMean Corpuscular HGB Conc 32.629.9-35.2 g/dLRed Cell Distribution Width13.511.0-15.0 %Platelet Ovcui128 150-450 10 3/uLMean Platelet Volume9.99.5-13.5 fLNeutrophils Percent Auto68.5 43.0-75.0 %Lymphocytes Percent Auto20.420.5-60.0 %Monocytes Percent Auto7.51.7- 12.0 %Eosinophils Percent Auto2.70.9-7.0 %Basophils Percent Auto0.40.2-2.0 % Immature Granulocytes Pct Auto0.50.0-0.5 %Neutrophils Absolute Auto5.81.4-6.5 10 3/uLLymphocytes Absolute Auto1.71.2-3.8 10 3/uLMonocytes Absolute Auto0.60.3-0.8 10 3/uLEosinophils Absolute Auto0.20.0-0.7 10 3/uLBasophils Absolute Auto0.00.0- 0.1 10 3/uLImmature Granulocytes Abs Auto0.040.00-0.03 10 3/uLPerforming Lab:see noteML - [facility] LBPROF 14(COMP METB) (Not yet reviewed by provider) Interpretation: Performing Lab: Notes/Report: [facility] ,Hqzqpd377908-033 mmol/LPotassium3.53.5-5.1 mmol/HJskjoucc36473-682 mmol/LCarbon Eqdiouy60.221.0-32.0 mmol/LAnion Gap12.0Yastgki2853-496 mg/dLBlood Urea Nitrogen 16.07.0-18.0 mg/dLCreatinine1.000.55-1.02 mg/dLEstimated GFR ( Brittaney>60 >=60 mL/min/1.73m 2Estimated GFR (Non- Ame55>=60 mL/min/1.73m 2BUN Creatinine Ratio16.4Kfxuwrr0.08.5-10.1 mg/dLBilirubin Total1.00.2-1.0 mg/dL Aspartate Amino Wfovarjopeo2822-43 U/LAlanine Xtbfvrmfiiwmfnul5714-83 U/L Alkaline Liialbquofa8392-306 U/LTotal Protein6.66.4-8.2 g/dLAlbumin Level3.83.4- 5.0 g/dLGlobulin2.8Albumin Globulin Ratio1.4Performing Lab:see noteML - [facility] LBIRON AND TIBC (Not yet reviewed by provider) Interpretation: Performing Lab: Notes/Report: [facility] ,Iron87.050.0-170.0 ug/dLTotal Iron Binding Zyrhyfec363.0250.0-450.0 ug/dL Percent Iron Wtzqqdnjiv89.8Performing Lab:see noteML - [facility] LB FERRITIN (Not yet reviewed by provider) Interpretation: Performing Lab: Notes/Report: [facility] ,Sjytybip11.08.0-252.0 ng/mLPerforming Lab:see note - [facility] Vitamin B12 (Not yet reviewed by provider) Interpretation: Performing Lab: Notes/Report: [facility] ,Vitamin L47547037-4457 pg/mL Performed at: [facility] [address] [id number] Cloth Weigher: Bj Hair PhD, Phone: [phone] Performing Lab:see note - [facility] LBVITAMIN D 25 [place] (Not yet reviewed by provider) Interpretation: Performing Lab: Notes/Report: [facility] ,Vitamin D36.3 <20 ng/mL Vit D deficient 20-<30 ng/mL Vit D insufficient 30-100 ng/mL Vit D sufficient >100 ng/mL Potential Toxicity [facility] (Not yet reviewed by provider) Interpretation: Performing Lab: Notes/Report: [facility] ,Lwaaiypi069.08.0-252.0 ng/mLPerforming Lab:[facility] LBPROF CHEM 8 (BAS METB) (Not yet reviewed by provider) Interpretation: Performing Lab: Notes/Report: [facility] ,Bcrulb238527-646 mmol/LPotassium3.43.5-5.1 mmol/VDsstoouc68235-481 mmol/LCarbon Vmjkctj95.121.0-32.0 mmol/LAnion Gap15.1Kkrngxe2775-339 mg/dLBlood Urea Nitrogen 16.07.0-18.0 mg/dLCreatinine0.950.55-1.02 mg/dLEstimated GFR ( Brittaney>60 >=60 mL/min/1.73m 2Estimated GFR (Non- Ame58>=60 mL/min/1.73m 2BUN Creatinine Ratio16.7Mvkptot4.08.5-10.1 mg/dLPerforming Lab:[facility] Reason For Referral No Information [...] nts Arexvy Unknown 12/31/2022 Administered Flu, Fluad (33559) 65 yrs+, single-dose syringe (8790-8161)Cxoiddw5512/31/2022 AdministeredPneumococcal (Pneumovax 23)Syvlxtn7801/05/2019AdministeredSpikevax Moderna Syringe Pre-Filled 50 mcg/0.5 sNUspypnd50/30/2023dministered Social History Tobacco Use: Social History Observation Description Date Details (start date - stop date) Never Smoker NA - NA Tobacco Use/Smoking Question Answer Notes Patient is a nonsmoker Section Notes: Never Smoked Never Smoked Never Smoked Never Smoked Never Smoked Never Smoked Never Smoked Problems Problem Type SNOMED Code ICD Code Onset Dates Problem Status W/U Status Risk Notes Problem Essential hypertension (73140688 ) Essential (primary) hypertension (I10) ActiveconfirmedProblemAge-related osteoporosis (108937287)Age-related osteoporosis without current pathological fracture (M81.0)ActiveconfirmedProblem Primary insomnia (4424864)Primary insomnia (F51.01)ActiveconfirmedProblemChronic tension-type headache (678414375)Chronic tension-type headache, not intractable (G44.229)ActiveconfirmedProblemUncomplicated mild persistent asthma (431282839) Mild persistent asthma, uncomplicated (J45.30)ActiveconfirmedProblemSeborrheic dermatitis (08253250)Seborrheic dermatitis, unspecified (L21.9)Activeconfirmed ProblemInstability of joint of right ankle (9748644361898886)Other instability, right ankle (M25.371)ActiveconfirmedProblemCervical spondylosis without myelopathy (088773333)Spondylosis without myelopathy or radiculopathy, cervical region (M47.812)ActiveconfirmedProblemLumbosacral spondylosis without myelopathy (81666124)Spondylosis without myelopathy or radiculopathy, lumbar region (M47.816)ActiveconfirmedProblemPrepatellar bursitis of left knee (969142217417269)Prepatellar bursitis, left knee (M70.42)ActiveconfirmedProblem Peroneal tendinitis (05479782)Peroneal tendinitis, right leg (M76.71)Active confirmedProblemStridor (71728991)Stridor (R06.1)ActiveconfirmedProblemContusion of left knee (66641453431227536)Contusion of left knee, initial encounter (S80.02XA)ActiveconfirmedProblemMetatarsal bone fracture (385236880)Displaced fracture of fifth metatarsal bone, right foot, subsequent encounter for fracture with routine healing (S92.351D)ActiveconfirmedProblemSprain of other ligament of right ankle, sequela (S93.491S)ActiveconfirmedProblemPresence of functional implant, unspecified (Z96.9)ActiveconfirmedProblemGastroesophageal reflux disease (508366628)GERD (gastroesophageal reflux disease) (K21.9)Activeconfirmed ProblemLung field abnormal (260312026)Abnormal CT scan of lung (R91.8)Active confirmedProblemPain in limb (45417800)Foot pain, right (M79.671)Activeconfirmed ProblemOverweight (512062529)Overweight (BMI 25.0-29.9) (E66.3)Activeconfirmed ProblemIncreased immunoglobulin (821746368)Elevated IgE level (R76.8)Active 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 lung disease (J84.10)ActiveconfirmedProblemChoking (599976007)Choking (T17.308A) ActiveconfirmedProblemStrain of left shoulder, initial encounter (S46.912A) ActiveconfirmedProblemChronic maxillary sinusitis (81672835)Chronic sinusitis of both maxillary sinuses (J32.0)ActiveconfirmedProblemAllergic rhinitis caused by pollen (18426199)Seasonal allergic rhinitis due to pollen (J30.1)Activeconfirmed ProblemAbnormal diffusion capacity determined by pulmonary function test (R94.2) ActiveconfirmedProblemPure hypercholesterolemia (916004808)Hyperlipidemia type II (E78.01)ActiveconfirmedProblemStrain of rhomboid muscle, initial encounter (S29.012A)ActiveconfirmedProblemOsteopenia of left hip (M85.852)Activeconfirmed ProblemAutoimmune hypothyroidism (616178390)Autoimmune hypothyroidism (E06.3) ActiveconfirmedProblemAt low risk for fall (960806618)At low risk for fall (Z91.81)ActiveconfirmedProblemAllergic reaction to bee sting (007850473)Bee sting allergy (Z91.030)ActiveconfirmedProblemDepression screening (082684896) Depression screen (Z13.31)ActiveconfirmedProblemGastroesophageal reflux disease with esophagitis (disorder) (579523896)Gastro-esophageal reflux disease with esophagitis, without bleeding (K21.00)ActiveconfirmedProblemHistory of gastric ulcer (662057561)History of gastric ulcer (Z87.11)ActiveconfirmedProblem 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)ActiveconfirmedProblemClosed fracture of metatarsal bone (50381023)Closed fracture of base of fifth metatarsal bone at metaphyseal-diaphyseal junction, unspecified laterality, initial encounter (S99.199A)ActiveconfirmedProblemMuscle strain of right knee, initial encounter (S86.911A)Activeconfirmed Encounters Encounter Location Date Provider Diagnosis [facility] [address] [place] [address] 02/25/2024 [facility] [address] [place] [address]/ [facility] [address] [place] [address]/[facility] [address] [place] [address]/[facility] Plan Of Treatment Pending Test Test Name [...] 07/02/2023 Vitamin B12 04/28/2024 Vitamin B12 07/15/2024 Insurance Providers Payer Name Payer Address Payer Phone Subscriber Number Group Number Insured Name Patient Relationship to Insured Coverage Start Date Coverage End Date [place] [address] [place] [address] [id number] Haja Chester - patient is the [id number] [address] [place], [place] [id number] - patient is the [id number] 2017 Medical (General) History Medical History History [...]
--- OUTSIDE RECORDS SUMMARY | 2025-02-08 07:26 | XMS_ITS | Clinical Summary ---
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 Name Role Phone Andrea Wu DO Primary Care Provider [phone] Allergies Active AllergyReactionsCriticalityNoted EaokGgydsxjwZlfxxhngijsEacrtkg46/30/2023 Iodinated Contrast MediaOther,Shortness of breath,PacmuswAhwk95/22/2008Iodine Iqukojm9901/14/2023enicillin DGkzaJxg57/30/2023Sulfa GhqjufwdndgUvwajmh13/22/2008 Wasp Venom10/21/2018 Other Reaction(s): Anaphylaxis Medications MedicationSigDispense [...] apply pea sized amount to urethra 2x/wk, [facility], 158, cm, 02/20/23 8:48:00 EST, Height/Length Dosing, 68.5, kg, 12/06/23 8:48:00 EST, Weight Vygknu2402/20/2023ctive famotidine (Pepcid) 20 MG tablet Take by [...] mL ctive Active Problems ProblemNoted DateDiagnosed DateAbdominal lamkvruf39/09/2024spiration into tqjqrz2807/25/2023Epigastric pain07/25/20234876Cyqivfihvnfy98/09/2024Lichen sclerosus et pfobcflcva26/09/2024Mild persistent dfkznx0007/25/2023Mixed incontinence 07/25/2023hronic vfcjyaarcbvo91/16/2024hronic cough07/02/2023llergic rhinitis due to stojjv7006/27/20236587Vowwavwzq47/11/0223Kawmbl69/11/2024symptomatic microscopic zcvizclax73/11/2024utoimmune bfcwuomgxclagf18/11/2024Graves' fmzrquf3906/27/2023hronic qherzarkrz47/11/2024hronic maxillary sinusitis 06/27/2023hronic tension gqehpxrm61/11/2024Equinus contracture of right ankle 06/27/2023Fibrocystic breast whncdrr9906/27/2023Gastroesophageal reflux disease 06/27/2023History of colonic aqakzc7106/27/20233339Hddvkhdwxlsdse22/11/2024LPRD (laryngopharyngeal reflux disease)06/27/2023Migraine xroompmn78/11/2024 Injplremwq21/11/2024eripheral rjrjidjgbkqk91/11/2024haryngoesophageal gpeshvffp38/11/2024Urethral tzxeovyu21/11/0348Iuaxnqw22/11/2024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[facility])06/27/2023Spondylosis of lumbar spine06/27/2023ulmonary function studies utrmrtpt19/11/2024ostinflammatory pulmonary oqekyifq59/11/2024 Keratoconjunctivitis sicca of both eyes not specified as Sjogren'01/14/2023 Blepharitis of upper and lower eyelids of both eyes01/14/2023ilateral posterior capsular lbhzmknhinaqh56/30/2339Ndgcredaklpv51/12/2023chilles tendinitis of right lower rnniiibtl83/25/2017Benign essential iwjbwfvpwful02/01/2008Ulcerative wqozlsi2303/18/2007 Resolved Problems ProblemNoted DateDiagnosed DateResolved DateHistory of gastric ulcer06/27/2023 06/27/2023Lung field nvigsnac29ecurrent UTI06/27/2023 06/27/2023Episodic tension-type headache, not twsyohuvues18 Encounters DateTypeDepartmentCare QlwrRjtdaiumsor26/13/2025 9:20 AM EDTOffice Visit [facility] [address] [place] [address] Ezio Vasquez MD Peripheral eosinophilia (Primary Dx); Chronic maxillary sinusitis; Cough variant asthma (HCC)12/28/2024amboo flowsheet [facility] [address] [place] [address] Ezio Vasquez MD 12/28/20246963Qhlpus58/12/2025Travelfrom Last 3 Months Family History Medical HistoryRelationNameCommentsDiabetesMotherHypertensionMotherLung cancer MotherPancreatic cancerMotherBreast cancerSister 1CancerSister 2Heart disease Sister 2MelanomaNeg VoMeuzpyzeAngtLifxasInlwqruuGfdtkbf6FbncvvLukfwa 1Sister 2 SonAlive2 Social History Tobacco UseTypesPacks/DayYears UsedDateSmoking Tobacco: NeverSmokeless Tobacco: Never Tobacco Cessation:Counseling Given: Not Answered Alcohol UseStandard Drinks/WeekCommentsNever0 (1 standard drink = 0.6 oz pure alcohol)Caffeine : sodaCommentsUnknownSex and Gender InformationValue Date RecordedSex Assigned at NzrlmYnubzp77/13/2023 7:05 PM EDTLegal SexFemale 05/30/2022 6:52 PM EDTGender NgtjyntmIyrvnr92/13/2023 7:05 PM EDTSexual OrientationNot on file Last Filed Vital Signs Vital SignReadingTime TakenCommentsBlood Kswgdlel506/7601/ 10:59 AM EST Pulse--Temperature--Respiratory Rate--Oxygen Saturation--Inhaled Oxygen Concentration--Khdwmb42.6 kg (171 lb)12/28/2024 9:14 AM QHYHzsfol326.5 cm (5' 2 )04/30/2024 9:01 AM ESTBody Mass Index31.28004/30/2024 9:01 AM EST Plan of Treatment DateTypeDepartmentCare Team (Latest Contact Info)Rfkitxinniq63/10/2025 10:50 AM ESTOffice Visit [facility] [address] [place] [phone] Janae Crane MD [address] [place] [address] 02/26/2025 8:15 AM ESTOffice Visit [facility] [address] [place] [phone] Uriah Kilpatrick DO [address] [place] [address] 04/29/2025 9:20 AM ESTOffice Visit [facility] [address] [place] [phone] Ezio Vasquez MD [address] [place] [address] 05/11/2025 9:45 AM ESTOffice Visit [facility] [address] [place] [phone] Madison Burns, DO [address] [place] [address] Health MaintenanceDue DateLast DoneCommentsCT Vwnxryvfdufc04/11/1953FIT-DNA 1950FIT1950FOBT1950 6839Fleupkoguuyyu20/11/1953OVID-19 Vaccine ( season), 01/23/2021, 06/02/2020, Additional history wiezwvFelsdcmzt07/18/321944/, 02/05/2023, 02/02/2022, Additional history swwgbqCbfalvdhvue16/06/124058/08/2023, 09/07/2019, 01/16/2015, Additional history existsColorectal Cancer Oqbvxlruq73/06/2034Pneumococcal Vaccine: 65+ DleljFhhwfeomq65/21/2019, 01/10/2017, 01/04/2016Influenza Vaccine Czuqprzej09/07/2025, 01/13/2024, 12/31/2022, Additional history exists Procedures Procedure NamePriorityDate/TimeAssociated DiagnosisCommentsMAMMOGRAM, BILATERAL, SCREEN:*Cuhycqm9802/03/2024 12:39 PM ESTfrom Last 3 Months or Most Recently Relevant to Health Maintenance Results * MAMMOGRAM, BILATERAL, SCREEN:* (02/03/2024 12:39 PM EST)Anatomical Region LateralityModalityRadiographic Imaging Narrative Authorizing ProviderResult TypeResult StatusMadison Burns DOIMG XR PROCEDURESFinal Result from Last 3 Months or Most Recently Relevant to Health Maintenance Insurance Care Teams Team MemberRelationshipSpecialtyStart DateEnd Date Andrea Wu DO [address] [place] [address] PCP - GeneralInternal Medicine08/27/22
--- OUTSIDE RECORDS SUMMARY | 2025-02-08 07:27 | XMS_ITS | Clinical Summary ---
Author Organization [facility] Address [address] 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 Name Role Phone Unavailable Primary Care Provider Unavailabl e Allergies Active AllergyReactionsCriticalityNoted ScctCmusvpxuBiingesqoltZcoyslr79/29/2024 Bee Venom Protein (Honey Bee)FrhmlyfnadqLyql34/06/2019Iodinated Contrast Media Anaphylaxis,Hives,Other,Shortness of breath,KoawnzfQjen78/22/2008Iodine Anaphylaxis,QuytqxoPvus07/30/9679DlvodhjkpgIyhhKwj00/29/2024Sulfa (Sulfonamide Antibiotics)Rash,CunvtfgBkv91/22/2008Sulfacetamide Skk-Ixdhaq-DaghQtnbfos 09/14/2023Wasp AjlgtFocclcgwdmuOiua36/06/2019 Other Reaction(s): Anaphylaxis Medications MedicationSigDispense QuantityRefillsLast FilledStart [...] capsule (50 mcg) by mouth once daily.05/18/2022ctive ofcynqcqlq-nyaqmosvoybhf-blon (Fioricet) 50-300-40 mg capsule Take by mouth.Active Breo Ellipta 200-25 mcg/dose inhaler 01/25/2023ctive EpiPen 2-Giovani 0.3 mg/0.3 mL injection syringe as directed InjectionActive estradiol (Estrace) 0.01 % (0.1 mg/gram) vaginal cream See Instructions, 42.5 gm, Refill(s) 0, apply pea sized amount to urethra 2x/wk, [facility], 158, cm, 02/20/23 8:48:00 EST, Height/Length Dosing, 68.5, kg, 02/20/23 8:48:00 EST, Weight Zgklao0602/20/2023ctive codeine-guaifenesin (Robitussin-AC) 10-100 mg/5 mL syrup Every [...] 0.6 oz pure alcohol)PHQ-2AnswerDate RecordedPatient Health Questionnaire-2 Minns635 CommentsUnknownSex and Gender InformationValueDate RecordedSex Assigned at BirthNot on fileLegal XcrGfyzch80/26/2022 5:55 PM ESTGender IdentityNot on fileSexual OrientationNot on file Last Filed Vital Signs Vital SignReadingTime TakenCommentsBlood Pressure--Pulse--Qtvalickjon47.2 ??C (97.2 ??F)10/08/2023 9:30 AM EDTRespiratory Rate--Oxygen Saturation--Inhaled Oxygen Concentration--Votqhj32 kg (165 lb 4.8 oz)10/08/2023 9:30 AM EDTHeight 157.5 cm (5' 2 )10/08/2023 9:30 AM EDTBody Mass Index30.23010/08/2023 9:30 AM EDT Plan of Treatment Health MaintenanceDue DateLast DoneCommentsCT Ikvcqvyhofvp05/11/1953FIT-DNA (Cologuard)1952FIT1952Lipid Panel1952Medicare Annual Wellness Visit (AWV)1950 3182Myhhpyqjuukgv39/11/1953TB Test1952TSH Level1952 Vitamin B-120 1952Vitamin C48-LR12 1952Hepatitis B Surface Antibody 1953MMR Vaccines (1 of 1 - Standard series)1953Hepatitis C Screening 1970DTaP/Tdap/Td Vaccines (1 - Tdap)1974Zoster Vaccines (1 of 2) 2002Bone Density Scan/6659Foyvfuoms62, 02/02/2022, 01/25/2021, Additional history existsInfluenza Vaccine (#1) /, 12/18/2021, 11/23/2020, Additional history existsCOVID-19 Vaccine ( season), 12/22/2021, 07/04/2021, Additional history efktzxLjbsacyzagb06, 09/07/2019, 01/16/2015, Additional history existsColorectal Cancer Mfxqtnyiq83/06/2034 Pneumococcal UxflfxqLmoibwyjt48/21/2019, 01/10/2017, 01/04/2016RSV High Risk: (Elderly (60+) or Population)Sltrjhnrm79/16/2023HIB VaccinesAged OutNo longer eligible based on patient's [...] Onesimo Chester TypeRelation to PatientDate of PhoneBilling AddressPersonal/EegftqZwds61/11/1951 ([address] [place] [address] [address] [place] [address]
== END 2025-02-08 07:23 | disposition home or self-care (01) ==
LOC: MAMMO 07:22
PROVIDERS: PCP Internal Medicine; Visit Provider Internal Medicine
DX: Z12.31 Encounter for screening mammogram for malignant neoplasm of breast (principal); M81.0 Age-related osteoporosis without current pathological fracture; Z80.3 Family history of malignant neoplasm of breast; Z80.8 Family history of malignant neoplasm of other organs or systems; M85.88 Other specified disorders of bone density and structure, other site
CPT/HCPCS: 77063; 77067; 77080

== ENCOUNTER 2025-02-25 09:00 | Outpatient (OUT) | payer MEDICARE, OTHER, SELFPAY ==
--- OUTSIDE RECORDS SUMMARY | 2025-02-21 04:27 | XMS_ITS | Continuity of Care Document ---
Author Organization [facility] Address [address] [place] [address] Phone Care Team Providers Care Post Office Clerk Name Role Phone Andrea Wu DO Primary Care Provider Andrea Wu DO Attending Provider Chrissy Hector MD Attending Provider [phone] Elijah Botello MD Attending Provider Karolyn Jones APRN Attending Provider Care Teams Patient Care Team Team Status: Active Member Role/Relationship Status Dates Andrea Wu DO Primary Care Provider Active Visit Care Team Team Status: Inactive Member Role/Relationship Status Dates Andrea Wu DO Primary Care Provider Active Start: December 22, 2024 End: December 22genny Wu DOAttnico ProviderActiveStart: December 22, 2024 End: December [...] Start: January 25, 2025 End: January 25, 2025Thomas Olexa , MDAttending ProviderActiveStart: January 25, 2025 End: January 25, 2025 Visit Care Team Team Status: Inactive Member Role/Relationship Status Dates Andrea Wu DO Primary Care Provider Active Start: February 05, 2025 End: February 05genny Bryce DOAttinco ProviderActiveStart: February 05, 2025 End: February 05, 2025 Patient Care Team Team Status: Inactive Member Role/Relationship Status Dates Andrea Wu DO Primary Care Provider Active Start: February 21, 2025 End: February 21, 2025Pajamarcus Jones APRN [employer]FTS TEACHER-CAttending Provider ActiveStart: February 21, 2025 End: February 21, 2025 Chief Complaint and Reason for Visit Chief Complaint Admit Date back pain December 22, 2024 9: 42am M25.512 - Pain in left shoulder January 25, 2025 9:25am OP SP LT SHOULDER PAIN REQ INJ January 25, 2025 10:40am Wellness February 05, 2025 8:21am sore throat February 21, 2025 9 :07am Reason for Visit Admit Date Low back pain December 22, 2024 9: 42am Lumbar spondylosis December 22, 2024 9: 42am Osteoporosis December 22, 2024 9: 42am Tear of left supraspinatus tendon Novemb er 2024 10:40am Asthma February 05, 2025 8:21am Hypertension February 05, 2025 8:21am Hypothyroidism February 05, 2025 8:21am Iron deficiency anemia February 05 8:21am Medicare annual wellness visit, subseque nt February 05, 2025 8:21am Osteoporosis February 05, 2025 8:21am Recurrent occipital headache February 052024 8:21am Screening mammogram for breast cancer No vember 2024 8:21am Small bowel stricture February 05 8:21am Reason for Referral Type Reason(s) Provider Provider Contact Information P rahatder Address Start Date Recurrent occipital headache R51.9 - Headache, srckvbbnvisW96.9 - Headache, unspecifiedAdvanced [facility]rologic [address] [place] [address]Dmjppxod 2024 Allergies, Adverse Reactions, Alerts Allergen Type Severity Reaction Last Updated Verified Status amoxicillin Allergy Unknown Itching, Rash February 212024 9:12am Yes Active iodine Allergy Unknown Unknown Reaction February 21, 2025 9:12am Yes Active Penicillins Allergy Unknown Unknown Reaction Decembe r 2024 9:12am Yes Active Sulfa (Sulfonamide Antibiotics) Allergy Unknown Unknown Reaction February 21, 2025 9:12am Yes Active sulfacetamide Allergy Unknown Unknown Reaction Decem belkis 2024 9:12am Yes Active sulfur Allergy Unknown Unknown Reaction February 21, 2025 9:12am Yes Active bee venom protein (honey bee) Allergy Unknown Anaphylaxis February 21, 2025 9:12am Yes Active Iodinated Contrast Media Allergy Unknown Anaphylaxis February 21, 2025 9:12am Yes Active idp dye Allergy Unknown Unknown Reaction June 1:32pm No Active Wasp venom Allergy Unknown Anaphylaxis October 21, 2018 2:21pm No Active Social History Smoking Status Status Start Date End Date Date of Observa tion Never smoked tobacco (finding) February 21, 2025 9:17am Observation Status Observation Response Date of Response Legal Sex Female (finding) [facility] 1950 Family History Relationship Condition Age at [...] 02, 2024 4:41pmUnknown ActiveLow back painOctober 2024 9:09amUnknownActiveRecurrent occipital headacheJanember 2024 8:34pmUnknownActiveOsteoporosisNovember 2023 4:25pmUnknownActiveTear of left supraspinatus tendonNovember 2024 11:33am UnknownActiveMigrainesAugust 2018 1:28pmUnknownActiveHypothyroidismAugust 2018 2:22pmUnknownActiveIron deficiency anemiaOctober 2023 3:57pm UnknownActiveLeft shoulder painNovoasis behavioral health hospital 2024 11:27amUnknownActiveAllergic rhinitisOctober 2023 3:58pmUnknownActiveHypertensionAugust 2018 1:26pmUnknownActiveLumbar spondylosisOctober 2024 9:09amUnknownActiveMRI: L2-3 mod left foraminal stenosis, L3-4 mod left foraminal stenosis, L5S1 mod right foraminal stenosis - hronic sinusitisJune 2023 3:20pmUnknown ActiveAsthmaAugust 2018 1:26pmUnknownActive Medications Medication Status Dose Units Route Directions Qty Days Refills S tart Date Stop Date End Date Reason(s) Instructions Adherence Codeine-Guaifenesin 10-100 mg/5 mL liquid Discontinued 5 ML PO Every 6 hours as needed for cough 200 10 0 June 18, 2023 11:00pm August 09, 2023 12:02pmCough Cough, unspecifiedCodeine-Guaifenesin 10-100 mg/5 mL nxfwgnZahwpxmxrpzs5OKBI Every 6 hours as needed for hdjey726354Zkv 2023 12:01pmMay 2023 3:54pmCough Cough, unspecifiedCodeine-Guaifenesin 10-100 mg/5 mL ujjewpRrtnakoruriv9UPQE Every 6 hours as needed for gzfle250289Qss 24th, 2024 3:54pmNov2023 8:43amCough Cough, unspecifiedAlendronate 70 mg tabletDiscontinued0.ROUTE.JUPTPAI467Eokwoyw 2023 11:33amSeptember 2024 6:20amTAKE 1 TABLET ONCE WEEKLY 30 MINUTES BEFORE THE FIRST FOOD, BEVERAGE OR MEDICINE OF THE DAY WITH PLAIN WATER Pantoprazole 40 mg tablet,delayed release (DR/EC)Sswpvbiultvp32UOTRWvyajLzjklmoa 11th, 2024 12:00amNovember 2023 1:00pmFamotidine 20 mg tabletDiscontinued 20MGPODailySaint [facility] 2023 12:00amNovember 2023 1:00pmLevothyroxine 100 mcg tabletDiscontinued0.ROUTE.EACADMO278Yxrfdbex2023 12:59pmNov2024 12:39pmTAKE 1 TABLET DAILY ON AN EMPTY STOMACH (REPLACING 88MCG) Pantoprazole 40 mg tablet,delayed release (DR/EC)Discontinued0.ROUTE.MIFHHDL807 January 27, 2024 12:59pmFormerly [facility]2024 12:39pmTAKE 1 TABLET DAILY ON AN EMPTY STOMACH FOLLOWED IN 30 MINUTES BY BREAKFASTFamotidine 20 mg tablet Discontinued0.ROUTE.WUTBYRM002Cgvrxisq2023 12:59pmFormerly [facility]2023 9:02amTAKE 1 TABLET AT BEDTIMEAtorvastatin 10 mg tabletDiscontinued0.ROUTE .VULITOA171Eiktstyx2023 1:00pmFormerly [facility]2024 7:00amTAKE 1 TABLET EVERY EVENINGFluticasone Furoate-Vilanterol (Breo Ellipta) 200-25 mcg/dose blister with xqrqeuTmplechelonc9IFQZDRPPAFRSEOlvgk62150Csylmjlk 2024 9:23am February 05, 2025 9:14amAmlodipine 5 mg tabletActive0.ROUTE.RLSNECY822Blnzhgxk 2024 9:06amTAKE 1 TABLET DAILYComplies with drug therapyMontelukast 10 mg tabletActive0.ROUTE.IYWHPHG983Gsfnwihr 2024 1:14pmTAKE 1 TABLET DAILY Complies with drug therapyAlbuterol Sulfate 90 mcg/actuation HFA aerosol inhaler Discontinued0.ROUTE.PRWJNZV37.511March 2024 7:50amNovember 2024 12:44pmUSE 2 INHALATIONS ORALLY EVERY 4 HOURS NEEDED FOR COUGH OR SHORTNESS OF BREATHAzithromycin 500 mg xnqepuEieefubejbtq855IZWSLzgbq839Aalj 2024 11:00pmNov2024 12:19pmAlendronate 70 mg dsopwbSddzbj11NOEEupcat week 52012Zyqcijlvp 2024 6:19amComplies with drug therapyFamotidine 20 mg uizplcPkfkaq32JBSPLyeee at cuoypuz06460Hvgtuwkf 2024 12:38pmComplies with drug therapyFluticasone Propionate 50 mcg/actuation spray,suspensionDiscontinued 9MDJUDJYVDEIQOVSEktrb19181Wxmjwbgj 2024 12:38pmFormerly [facility]2024 9:12am sinus symptomsLevothyroxine 100 mcg dmphxyVocddn183XNUFROdanv72245Xmfdtbmh 2024 12:38pmTake on an empty stomachComplies with drug therapyPantoprazole 40 mg tablet,delayed release (DR/EC)Nlcrlyggwegj49RAZSKjavu tpvdwcs70277Uqpzsnul 4th, 2025 12:39pmFormerly [facility]2024 9:15amTake on an empty stomach, 30 minutes prior to bkfstAtorvastatin 10 mg smdzykSgfbwg27LOEKWnggk smilurr04484Xjfjhjgk 10th, 2025 7:00amComplies with drug therapyPantoprazole 40 mg tablet,delayed release (DR/EC)Bcpgfeatndac65ZMTLPqnep rsehu81636Bipiooeb 24th, 2025 8:30pm[facility] 20[facility] 8:32pmTake on an empty stomach, 30 minutes prior to bkfstPantoprazole 40 mg tablet,delayed release (DR/EC)Zynsoxjtidzk35TYFFNxvwb zidwfli62580Tnsdzeda 24th, 2025 8:32pmNoveer 2024 5:02pmTake on an empty stomach, 30 minutes prior to bkfstPantoprazole 40 mg tablet,delayed release (DR/EC)Gyaoym82WFSSMzzss ymqodgh53432Dstrhffc 26th, 2025 5:02pmTake on an empty stomach, 30 minutes prior to bkfstComplies with drug therapyPrednisone 20 mg nqxurjErddns53ODDO.UUSTSXE759 0Dece2024 12:00am20 mg: take tid w/ food x 2 days, then bid w/ food x 3 days, then qd w/ food x 4 daysComplies with drug therapyNabumetone 750 mg ZuxhffStslzpxgvrut4295GRANGpztcRjubnh 2018 11:00pmFormerly [facility]2023 8:45amAtorvastatin 10 mg tujweqYtxwrqpflrcp86DJXWIvyaiTlyfaz 2018 11:00pm January 27, 2024 1:00pmhyperlipidemiaAlendronate 70 mg qpiwhzEkfpfkrqenvf56XD POevery weekgust 2018 11:00pm[facility] 11:33amosteoporosis Calcium Carbonate (Tums) 300 mg (750 mg) Tablet,AuyitnhtFsdilfmugzdy6LICHNVt Directed as needed for GERDAugust 2018 11:00[facility] 2023 8:43am Omeprazole 40 mg Capsule,Delayed Release(Dr/Ec)Bmdektaowliw02SEFRKjfnrBbznfg 2018 11:00[facility] 2023 8:45amGERD/PUDLoratadine-Pseudoephedrine (Claritin-D 24 Hour) 10-240 mg Tablet Extended Release 24 DsEgqtpyvhtjhu2EAIKC Dailygust 2018 11:00[facility] 2023 8:44amSinus symptoms Levothyroxine 100 mcg ZbrlmjMjogalrlnlns080HYBZMMrwzcNhcpva 2018 11:00pm January 27, 2024 1:00pmgrave's dx.Dnoamtikodpt-Yau-Nhfusibw 50-770-60 mg TabletDiscontinued0.5TABPOFour times daily as needed for HeadacheAugust 2018 11:00pmDecebanner md [facility] 2024 9:16amBetamethasone Valerate 0.1 % Cream Rirsgpjpuvaq2RCWVQHZFQTYUUAz DirectedAugust 2018 11:00[facility] 2024 12:19pmCalcium Carbonate (Calcium 500) 500 mg calcium (1,250 mg) Tablet,Chewable Bdxcznnlardm472VABPXiimc times dailyAugust 2018 11:00[facility] 2023 8:43amosteoporosisAlbuterol Sulfate 90 mcg/actuation HFA aerosol inhaler Utyarfjfeweu2LYVJUTYXZAVXYXBt Directed as needed for Shortness Of Breath Or WheezingAugust 2018 11:00pm[facility] 7:50amBenazepril 10 mg tablet Wccguiqzpiov26KMUXLgwrzSdtrib 2018 11:00[facility] 2023 8:42amHTN Fluticasone Propionate 50 mcg/actuation [place],RruznajvuzUnwptxnwbamq4FVVWK INTRANASALDailyAugust 2018 11:00pm[facility] 2023 4:46pmsinus symptoms Rutvhib-Rutmsmryzsmje-Oyjminkz (Pain-Off) 250-250-65 mg XnbwkpBakoqugudjwm2KOLCQ As Directed as needed for HeadacheAugust 2018 11:00[facility] 2023 8:42amCyclosporine (Restasis) 0.05 % EkeyvlbhknoPtnycbmwiwjp7KNAOTCRGXOLCAFG Twice dailyAugust 2018 11:00[facility] 2023 8:43amDry eyesPsyllium Husk (Metamucil) 0.52 gram NlkpioeVxvkexmqddme1OBGJNShmxk dailyAugust 2018 11:00[facility] 2023 8:46amIBSEstradiol 10 mcg tabletDiscontinuedAucrownpoint healthcare facilityt 2018 11:00pmAugust 2018 2:20pmEstradiol (Yuvafem) 10 mcg Tablet Mcgquekjycii26ZMNYiwdv a WeekAugust 2018 11:00[facility] 2023 8:44am Fluticasone Furoate-Vilanterol (Breo Ellipta) 200-25 mcg/dose blister with gftnraAijuwiiwwihz8ELBFELAKZPSEYRQgkxhZnajxe 2018 11:00[facility] 2023 8:44amAsthmaAmlodipine 5 mg rwhllmZkrjbkieirrg3YVARIyokdDthfp 2023 12:00amMarch 2023 4:46pmMontelukast 10 mg hezklyUlfcfmlltkrf51CXMLScrzd [facility] 2023 12:00amMarch 2023 4:46pmAmlodipine 5 mg tabletDiscontinued5 MLZUCingl64968Zhpnr 2023 4:43pmFebruary 2024 9:07amMontelukast 10 mg qbvpedFuyramspoycn86SQLHJprvx59771Mdtjr 2023 4:44pmFebruary 2024 1:14pmFluticasone Propionate 50 mcg/actuation spray,gsfekewgykVjsilekuawzy9ZDMWJ GHFZIQQNVYDlqof97398Uxoeg 2023 4:44pmNovoasis behavioral health hospital 2024 12:39pmsinus symptomsDoxycycline Hyclate 100 mg jhwmmamFmirhxowzagl451TXVKOcmje96041Fxzlv 2023 11:00pmFebruary 05, 2024 8:43amtake bid x 7 days then qd x 7 days Prednisone 20 mg gnrgfkCghtlshbjnxk19GHPCYf Dajknpoh237Nlkha 2023 11:00pm February 05, 2024 8:45am1 tab tid w/ food x 3 days, then bid w/ food x 3 days, then qd w/ food x 3 daysDoxycycline Hyclate 100 mg szuznvoTbkzfjdpecpe007TNER Twice wysrg79015Mhnn2023 11:00pmFebruary 05, 2024 8:43amFluticasone Furoate-Vilanterol (Breo Ellipta) 200-25 mcg/dose blister with device Pyumscjtonkg8MKQYIDCQAOLQGSfmjuNveewvvk 20th, 2024 12:00amFebruary 2024 9:24amCetirizine 10 mg sjmgbrRhovup31AYCYCakwh as neededFebruary 05, 2024 12:00amComplies with drug therapyEpinephrine 0.3 mg/0.3 mL auto-injectorActive 0.3MGIMevery 5 to 15 minutes as neededFebruary 05, 2024 12:00amdo not exceed 3 doses per episodeComplies with drug therapyPolysaccharide Iron Complex (Ferrex 150) 150 mg iron mbeeouzTgwnmtryvaul503VVMZLvarnYdzcwmcy 20th, 2024 12:00am February 21, 2025 9:16amFluticasone Propionate (Xhance) 93 mcg/actuation aerosol breath felmekhwfNbxfqw5QUPVPJJCOCWKXSQNedxw dailyFebruary 05, 2024 12:00aminto each nostrilComplies with drug therapyEstradiol 0.01 % (0.1 mg/gram) swnvdBikepmpueoxk7RPYOZFMJWTAJIEMGRRugpc dailyFebruary 05, 2024 12:00am February 21, 2025 9:16amNitrofurantoin Macrocrystal 100 mg capsuleDiscontinued 100MGPODaily at bedtimeFebruary 05, 2024 12:00amDecebanner md [facility] 2024 9:17amafter intercourseMetronidazole 0.75 % (37.5mg/5 gram) ivpMzpdjh3TERTRGQSKAPGXRVGAQfezz dailyFebruary 05, 2024 12:00amComplies with drug therapyFamotidine 20 mg slqfguGzvcnbzhqddn64MQCYKycuy at chwspkr33076Gbpugtix2023 9:02amNove2024 12:39pmNitrofurantoin Macrocrystal 100 mg eykwideFylxsp294BZRYVwdol at bedtime as neededFebruary 21, 2025 9:15amafter intercourseComplies with drug therapyFluticasone Furoate-Vilanterol (Breo Ellipta) 100-25 mcg/dose blister with kfeomyLptyca7OGMKAWZFFWTOBZxtus218967Zflrqusr 21st, 2025 12:00amComplies with drug therapyPantoprazole 40 mg tablet,delayed release (DR/EC)Mphsxlhawskw30 MGPOTwice vqjtf596798Rscdjsyy2024 9:14amNove2024 8:31pmTake on an empty stomach, 30 minutes prior to bkfstAlbuterol Sulfate (Ventolin Hfa) 90 mcg/actuation HFA aerosol ywzigivOdsjpn1IQFGPAPVSAZGXFUcexr 6 hours as needed for shortness of breath or fcneswlt34312Nipqarfh 21st, 2025 12:00amComplies with drug therapyCelecoxib (Celebrex) 200 mg lsiayryVommipkvnjlb575OATTNpqyh87025 December 21, 2024 11:00pmDe2024 9:16amClobetasol 0.05 % ointment ActiveTOPICALFebruary 21, 2025 12:00amComplies with drug therapy Immunizations Immunization Event Date Not Given Reason Dose Number Ed Transporter Lot Number Reason(s) Given Vaccine Information Statement (VIS) Detail Administration Location COVID-19 mRNA-1273 (Moderna) May 05, 2020 COVID-19 mRNA-1273 (Moderna)June 02OVID-19 mRNA-1273 (Moderna)January 23OVID-19 mRNA-1273 (Moderna)July 04OVID-19 (MODERNA) 12Y and olderNovember [id number]-17 (MODERNA) 12Y and olderOctober [id number]-62 mRNA Bivalent Booster ([employer])December 22, [id number] TIV High-Dose 65YR+December 17, 2018Fluzone QIV High-Dose 65YR+December 18, 2021 RY992PQQlimpfiyy, trivalentOctober , [id number], trivalentOctober , [id number], trivalentOctober , [id number] vaccine, quadrivalent, adjuvantedOctober 2022Influenza vaccine, quadrivalent, adjuvantedSeptember , [id number], seasonal, injectable, pfOctober , 2015Influenza Quadrivalent PF MDCKOctober , [id number], unspecified formulationOctober , 2016influenza, unspecified formulation December 07, 2019influenza, unspecified formulationSeptember 2020 influenza, unspecified formulationOctober neumococcal Conjugate Vaccine, 13 valentOctober 2016Pneumococcal Polysacc. Vaccine, 23 valent January 04, 2016Pneumococcal Polysacc. Vaccine, 23 valentOctober 2018 Quadrivalent InfluenzaOctober , [id number] InfluenzaSeptember , [id number], preF3, adj, pfOctober , [id number] Medical Equipment Device Date Implanted Device Details [...] 7:27am January 19, 2025 7:27am 712 pg/mL [id number] at: [facility] - [facility] [address] [id number] Director: Bj Hair PhD, Phone: [phone]-Sepukqm Vitamin D TotalNov2024 7:27amNovember 2024 7:27am47.5 ng/mL<20 ng/mL Vit D vlcokhufr62-<30 ng/mL Vit D tabzwctxuxqp43-972 ng/mL Vit D sufficient>100 ng/mL Potential ToxicityFerritinNov2024 7:27amNovember 2024 7:46zj101.0 ng/mLAbove high normal8.0-252.0Iron SaturationNov2024 7:27amNovember 2024 7:27am26.8 %Anion GapJanuary 19, 2025 7:27amNovemb2024 7:27am15.6Basophils # (Auto)January 19, 2025 7:January 19, 2025 7:27am0.1 10 3/uL0.0-0.1Iron LevelNov2024 7:January 19, 2025 7:27am77.0 ug/dL50.0-170.0Albumin/Globulin RatioNove2024 7:27amNovember 2024 7:27am1.1Basophils (%) (Auto)January 19, 2025 7:amNovemb2024 7:27am0.4 %0.2-2.0Total Iron Binding CapacityNov2024 7:27amNovemb2024 7:97ei418.0 ug/dL250.0-450.0AlbuminNov2024 7:27amNovember 2024 7:27am4.0 g/dL3.4-5.0Eosinophils # (Auto) January 19, 2025 7:27amNovemb2024 7:27am0.6 10 3/uL0.0-0.7Alkaline PhosphataseNov2024 7:27amNovemb2024 7:65ux621 U/LAbove high igrbvn54-677Ssevhaxuigm (%) (Auto)January 19, 2025 7:27amNovemb2024 7:27am5.0 %0.9-7.0Alanine Aminotransferase (ALT/SGPT)January 19, 2025 7:27am January 19, 2025 7:27am25 U/S50-57EricxwmebuBuyvarkd 4th, 2025 7:27amNovemb2024 7:27am41.1 %36.0-48.0Aspartate Amino Transf (AST/SGOT)January 19, 2025 7:27amNovember 2024 7:27am17 U/Q07-87NnuictljjyWtutrevn 4th, 2025 7:27amNovember 2024 7:27am13.5 g/dL12.0-16.0BUN/Creatinine RatioNove2024 7:27amNovember 2024 7:27am17.0Immature Granulocyte # (Auto) January 19, 2025 7:27amNovemb2024 7:27am0.06 10 3/uLAbove high normal 0.00-0.03Blood Urea NitrogenNov2024 7:27amNovemb2024 7:27am 16.0 mg/dL7.0-18.0Immature Granulocyte % (Auto)January 19, 2025 7:27amNovemb2024 7:27am0.5 %0.0-0.5Calcium LevelNov2024 7:27amNove2024 7:27am9.2 mg/dL8.5-10.1Lymphocytes # (Auto)January 19, 2025 7:27am January 19, 2025 7:27am1.2 10 3/uL1.2-3.8Chloride LevelNovember 2024 7:27amNovemb2024 7:59mt452 mmol/S55-365Huijuyucatj (%) (Auto)January 19, 2025 7:27amNovemb2024 7:27am10.3 %Below low airgdb80.5-60.0Carbon Dioxide LevelNovember 2024 7:27amNovemb2024 7:27am26.7 mmol/L 21.0-32.0Mean Corpuscular HemoglobinNov2024 7:27amNovemb2024 7:27am31.3 pg26.7-34.0CreatinineNovember 2024 7:27amNovember 2024 7:27am0.94 mg/dL0.55-1.02Mean Corpuscular Hemoglobin ConcentNovember 2024 7:27amNovember 2024 7:27am32.8 g/dL29.9-35.2Estimated GFR ()January 19, 2025 7:27amNovember 2024 7:27am>60>=60 mL/min/1.73m 2Mean Corpuscular VolumeNovember 2024 7:27amNovember 2024 7:27am95.4 fL81.0-99.0Estimated GFR (Non- AmericanNovember 2024 7:27amNovember 2024 7:48gn48Wibmm low normal>=60 mL/min/1.73m 2Monocytes # (Auto)January 19, 2025 7:27amNovember 2024 7:27am0.8 10 3/uL0.3-0.8GlobulinNovember 2024 7:27amNovember 2024 7:27am3.6 g/dLMonocytes (%) (Auto)January 19, 2025 7:27amNovember 2024 7:27am6.6 %1.7-12.0Glucose LevelNovember 2024 7:27amNovember 2024 7:27am89 mg/rT27-408Fzuf Platelet VolumeNovember 2024 7:27amNovember 2024 7:27am9.3 fLBelow low normal9.5-13.5Potassium LevelNovember 2024 7:27amNovember 2024 7:27am3.3 mmol/LBelow low normal3.5-5.1Neutrophils # (Auto)January 19, 2025 7:27amNovember 2024 7:27am8.7 10 3/uLAbove high normal1.4-6.5Sodium LevelNovember 2024 7:27am January 19, 2025 7:03wj526 mmol/N722-114Wfguaiynzww (%) (Auto)January 19, 2025 7:27amNovember 2024 7:27am77.2 %Above high aluplg60.0-75.0Total BilirubinNov2024 7:27amNovemb2024 7:27am0.6 mg/dL0.2-1.0 Platelet CountNov2024 7:27amNovemb2024 7:08ey853 10 3/uL 150-450Total ProteinJanuary 19, 2025 7:27amNovemb2024 7:27am7.6 g/dL 6.4-8.2Red Blood CountJanuary 19, 2025 7:27amNove2024 7:27am4.31 10 6/uL4.20-5.40Red Cell Distribution WidthJanuary 19, 2025 7:27amNove2024 7:27am13.0 %11.0-15.0Corrected White Blood CountJanuary 19, 2025 7:27am January 19, 2025 7:27am11.3 10 3/uLAbove high normal4.0-11.0 Diagnostic Imaging Reports Author Abe Lu [facility] HospitalAuthoredNov2024 8:33pmReport Dictated Date/TimeDictated ByStatusRadiology ReportNov2024 8:33pm Juan Antonio JacobsC[facility] [address] [place] [address] XRay Report Signed Patient: Munira Chester MR#: [id number] : 1950 Acct:[id number] Age/Sex: 74 / F ADM Date: 5 Loc: [facility] [place]: Type: [facility] Attending Dr: Elijah Botello MD Copies to: [...] Lu M.D. 01/25/2025 8:34 PM Dictation Location: [facility]--20 Transcribed By: PWS 01/25/252033 Dictated By: Abe Lu DO 01/25/252032 Signed By: <Electronically signed by Abe Lu DO in OV> 01/25/252033 Vital Signs Vital Reading Result Reference Range Collection Date/Time Height 61 [in_i] December 22, 2024 8:04edRswakl83.11 kgOctober 2024 8:52amHeart Rate97 /min 60-100October 2024 8:52amRespiratory rate12 /esb71-26Jridjvb 2024 8:52amBP Xusudwuk611 mm[Hg]100-140October 2024 8:52amBP Xyfjfdqki33 mm[Hg] 60-100October 2024 8:52amBMI (Body Mass Index)32.1 kg/q9Elkzhoo 2024 8:17zwMhgxma82 [in_i]January 25, 2025 10:73paHnvrmb52.57 kgNovember 2024 10:56amBMI (Body Mass Index)30.2 kg/t6Bgficxrw2024 10:96kaAgmyvi19 [in_i]February 05, 2025 8:31gsHwbzhs29.35 kgNovember 2024 8:38amHeart Rate71 /dvq93-355Kktkhexz 21st, 2025 8:38amRespiratory rate12 /ngf37-84Dsjkjpoc 21st, 2025 8:38amBP Banvjdxo004 mm[Hg]100-140Nov2024 8:38amBP Ekwafowiv51 mm[Hg]60-100Nov2024 8:38amBMI (Body Mass Index)31.4 kg/k2Brtnlkkk2024 8:99abBialiy14 [in_i]February 21, 2025 9:09amWeight 75.06 kgDecember 2024 9:09amBody Xmvxhpzbsxl73.3 [degF]97.6-99.0Dece2024 9:09amHeart Rate90 /axd05-020KizvcqmlFebruary 21, 2025 9:09amRespiratory rate 18 /omf54-40TzjkoyowFebruary 21, 2025 9:09amOxygen saturation by Pulse % 95-100February 21, 2025 9:09amBP Vxzbntao889 mm[Hg]100-140February 21, 2025 9:09amBP Tfaeiicrg53 mm[Hg]60-100Decemb2024 9:09amBMI (Body Mass Index) 31.2 kg/n2SvotzeqeFebruary 21, 2025 9:09am Advance Directives Advance Directive Response Recorded Date/ Time Advance Directives No September 08 7:51am Insurance Providers Yulior Munira Henrik Address [address] [place] [id number] Info.Home Phone: Payer Group Member ID Coverage Type Subscriber Relationship to Subscriber Effective Date Expiration Date MMO Id: [id number] Schneider Id: [id number] [address] [place] [id number] Home Phone: Email: [email or web address] Encounters Encounter Location(s) Arrival/Admit Date Discharge/Departure Date Discharge/Departure Disposition Provider(s) Departed Physician/ Provider Office Visit -[facility] December 22, 2024 9:42am December 22, 2024 10:14am Discharged to home care or self care (routine discharge) Andrea Wu , DO Non-patient / Non-visit -[facility] N ov2024 7:27am GLENN Brantleyeparted Clinical-[facility] OrthoNov2024 9:25amNovember 2024 9:26amDischarged to home care or self care (routine discharge)Elijah Botello , GLENNeparted Physician/Provider Office Visit-[facility] 10:40amNovember 2024 11:12am Discharged to home care or self care (routine discharge)Elijah Botello MD Departed Physician/Provider Office Visit-[facility]2024 8:21amNovember 2024 9:23amDischarged to home care or self care (routine discharge)SILVANO Kingeparted Physician/Provider Office Visit- [facility] 2024 9:07amDecember 2024 9:26am Discharged to home care or self care (routine discharge)Karolyn Jones APRN Recent Diagnosis Onset Date Admit Date Low back pain Unknown December 22 9:42am Lumbar spondylosis Unknown December 22, 2024 9:42am Osteoporosis Unknown December 22 9:42am Tear of left supraspinatus tendon Unknown January 25, 2025 10:40am Asthma Unknown February 05, 2 025 8:21am Hypertension Unknown February 05, 8:21am Hypothyroidism Unknown February 05, 025 8:21am Iron deficiency anemia Unknown February 05, 2025 8:21am Medicare annual wellness visit, subsequent Unkno wn February 05, 2025 8:21am Osteoporosis Unknown February 05, 025 8:21am Recurrent occipital headache Unknown Jan 8:21am Screening mammogram for breast cancer Unknown February 05, 2025 8:21am Small bowel stricture Unknown January 172024 8:21am Assessments Diagnosis Onset Date Resolution Status Admit Date Low back pain acuteOctober 2024 9:42amLumbar spondylosisacuteOctober 2024 9:42am OsteoporosisacuteOctober 2024 9:42amTear of left supraspinatus tendonacute January 25, 2025 10:40amAsthmaacuteNovember 2024 8:21amHypertension acuteNov2024 8:21amHypothyroidismacuteNov2024 8:21amIron deficiency anemiaacuteFebruary 05, 2025 8:21amMedicare annual wellness visit, subsequentacuteFebruary 05, 2025 8:21amOsteoporosisacuteNov2024 8:21amRecurrent occipital headacheacuteFebruary 05, 2025 8:21amScreening mammogram for breast canceracuteFebruary 05, 2025 8:21amSmall bowel stricture acuteFebruary 05, 2025 8:21am Plan of Treatment Author [facility] 8:46pmI have instructed this patient on the recommended lifestyle changes, which includes a low fat, high fiber diet along with a regular exercise routine. I have also reviewed the recommended age-appropriate preventive testing for this patient. I have also reviewed the recommended vaccines for their age and risk factors. Continue maintenance inhaler: LABA/ICS NIKO as needed No ER or hospital visits for AE asthma. UTD w/ vaccinations Instructed to continue calcium and vitamin D supplements. Instructed on weight bearing exercises. Monitor w/ DEXA qoy. DEXA: 01/2023 Continue Alendronate: restarted last year after drug holiday Clinically euthyroid, monitor TSH yearly I have instructed this patient to consume a healthy, low-fat, low-salt diet. I have also encouraged them to continue exercise with weight loss to achieve/maintain a BMI < 30. I have instructed this patient on the correct procedure for obtaining home BP measurements:? - rest for 5 minutes w/o talking. - positioned w/ feet on floor and arms supported. - average best 2/3 readings w/ goal < 135/85. - update office w/ home readings in 2 weeks. No s/s GIB EGD, colonoscopy completed 01/2023 Completed EGD, colonoscopy and capsule endoscopy - no findings to explain Fe deficiency Planning rectal double balloon enteroscopy for suspected Crohn's Received 1 IV Fe infusino Dietary counseling I have instructed this patient on monthly SBE and recommended yearly mammograms. Treated as migrainous for years. Only medication beneficial is Norgesic but unavailable. She uses Motrin, ice and cervical traction w/ some temporary benefit. Denies radicular symptoms into her upper extremity. Refer to Neurology Order for C-spine XR faxed to [facility] No obvious obstructive symptoms Planning rectal double balloon enteroscopy for suspected Crohn's Avoid NSAIDs and Caffeine Author Andrea [facility] 2024 9:18amContinue Ca and Vit D [...] for evaluation and treatment Author Georgina Burgos [facility] 11:09amX-rays and MRI were reviewed with patient [...] scheduled test information is unavailable Pending Tests Test Name Ordered Date Scheduled Date Comprehensive Metabolic Panel February 08 8:40pm XR cervical spine w flex/extNovember 2024 8:39pm Future Visits Future appointment information is unavailable Future Procedures Procedure Name Ordered Date Scheduled Date Complete Blood Count Auto Diff February 08 8:40pm Lipid PanelNovember 2024 8:40pmThyroid Stimulating HormoneNovember 2024 8:40pm Future Medications Future medication information is unavailable Patient Instructions Instruction Admit Date Low back pain in adults December 22 9:42am
--- OUTSIDE RECORDS SUMMARY | 2025-02-25 09:04 | XMS_ITS | CCD ---
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 Role Phone Espinoza Ruiz Unavailable [...] CHICO, DR WILKES Primary Care Unavailable AZUCENA ., DR MONZON Consulting Unavailable OLEESPINOZA STONE Consulting Unavailable BASHIR DANIELLE Consulting Unavailable CHICO, DR WILKES Primary Care Unavailable BASHIR DANIELLE Attending Unavailable BASHIR DANIELLE Admitting Unavailable MARGARITO MAS Consulting Unavailable JESÚS, DR JEROME Winkler Consulting Unavailable CHICO, DR WILKES Primary Care Unavailable BASHIR DANIELLE Attending Unavailable BASHIR DANIELLE Admitting Unavailable BASHIR DANIELLE Consulting Unavailable LEILANIGILBERT Consulting Unavailable SHARPSYED Consulting Unavailable RILEY HURTADO Consulting Unavailable JESÚS, [...] CROWELL Admitting Unavailable TERESA CROWELL Consulting Unavailable WebsterShannan Unavailable Anrdea Golden MD Primary Care Provider JHONNY MAHER Attending Unavailable DARLINE PEREIRA Attending Unavailable JHONNY MAHER Referring Unavailable Unavailable Primary Care Provider UnavailLUMA Latif Attending Unavailable ISH PEREIRAA W Referring Unavailable Tera VILLEGAS, Jones Talthang Unavailable Krunal VILLEGAS, Chrissy Unavailable Andrea Golden DO [...] Care Unavailable LUZ ELENA FRANKLIN Attending Unavailable KODY FALLONLEY Referring Unavailable KODY FALLONLEY Referring Unavailable Andrea Golden DO Primary Care Provider Lue, Asuncion M. Referring Unavailable Lue, Asuncion M. Attending Unavailable Lue, Asuncion MJose Admitting Unavailable Del Nettles Attending Unavailable Del Nettles Attending Unavailable AnitaeAsuncion Attending Unavailable Andrea Golden DO Primary Care Provider Abe Mojica DO Attending Provider [phone] Andrea Golden DO Attending Provider [phone] M[place] BURNS Attending Unavailable CHARITO VASQUEZ Attending Unavailable RAMCHARITO CHACON Attending Unavailable MARSHA LAL Attending Unavailable CHARITO VASQUEZ Attending Unavailable Andrea Golden DO Primary Care Provider Andrea Golden DO Attending Provider Chrissy Hector MD Attending Provider [phone] Espinoza Ruiz MD Attending Provider [phone] Espinoza Ruiz Attending Unavailable Espinoza Ruiz Admitting Unavailable Andrea Golden Primary Care Unavailable Allergies Allergy ClassificationReported Allergen(s)Allergy TypeDate of OnsetReaction(s) Facility (20 sources)Amoxicillin; Translations: [AMOXICILLIN]Drug Mlghoti59-24-6805Pwfj, Unknown, Other: See [facility] (20 sources)Sulfacetamide / SulfurDrug AllergyUnknoPhelps Health [facility]Share Other (20 sources)idp dyePropensity to adverse bvyqtdumv18-68-8899Rutsupj, Unknown ReactionUniversity Hospitals St. [facility] (20 sources)Sulfonamides (Antibiotic); Translations: [SULFA (SULFONAMIDE ANTIBIOTICS)]Allergy to qmlzhqegq33-98-6394Jgqr, UnknownUniversity Hospitals St. [facility] (20 sources)wasp venom; Translations: [WASP VENOM]Allergy to ctqxwifqz41-22-[address] [facility] (12 sources)bee venom protein (honey bee); Translations: [BEE VENOM PROTEIN (HONEY BEE)]Allergy to oaowlqbld32-90-6158DwrmotwetqkEaenpwkbz [facility] (20 sources)Iodinated Contrast Media; Translations: [IODINATED CONTRAST MEDIA] Allergy to biuncaymi09-77-5954Hjcwx, Shortness of breath, Unknown, Anaphylaxis, HivesUniversity Hospitals St. [facility] (20 sources)Bee/Wasp/Ant venom; Translations: [Bee Stings]Drug allergyDyspnea (finding), Weal (disorder)[facility] (20 sources)Contrast media; Translations: [contrast media (iodine-based)]Drug toyjwgr66-50-1974Muvvofj (finding), Weal (disorder)[facility] (20 sources)Iodine; Translations: [iodine]Drug Traltiq53-66-8349Udsmfgf (qualifier value), Unknown, AnaphylaxisGeneral Surgery [place] (20 sources)Penicillin; Translations: [penicillin]Drug Mehujvx43-30-1115Kwwhzodq of skin (disorder), RashGeneral Surgery [place] (20 sources)Sulfonamides (Antibiotic); Translations: [sulfa drugs]Drug allergy Angioedema (disorder)[facility] (1 source)bee venomDrug allergy (disorder)[facility] Repository (1 source)Iodine (And Iodine Containting Drugs)Drug allergy (disorder)01-18-2015 [facility] Repository (8 sources)PenicillinsDrug allergy (disorder)00-38-9861Ugmoikg ReactionThe [facility] (1 source)Sulfonamides (Antibiotic)Drug allergy (disorder)45-91-8213Gxx [facility] Repository (2 sources)Iodine / Sodium IodideDrug AllergyUnknowSaint [facility] Other (18 sources)Substance with penicillin structure and antibacterial mechanism of action (substance)Drug allergyUnkhorizon specialty hospitalcoRank Other (20 sources)Substance with sulfonamide structure and antibacterial mechanism of action (substance)Drug ltuewyu02-15-7426TawldwjHqpwrcoRank Other (2 sources)Allergies ReconciledPropensity to adverse reactionsBarton County Memorial Hospital [facility] Other (2 sources)patient allergy list reviewed by nurse or physiciaPropensity to adverse zfarxgbfw60-85-8892Vahlatj:[facility] [employer] Other (16 sources)Penicillin GDrug Zrkirno80-17-8207BymbIFDZ [facility] (7 sources)SulfacetamideDrug Zxbyqtj74-84-7208Njxxudu ReactionUniversity Hospitals St. [facility] (7 sources)SulfurDrug Eekjhjg54-65-5243BxfycxbWright-Patterson Medical Center (4 sources)SULFACETAMIDE JGL-XEOXYX-SXOK; Translations: [SULFACETAMIDE YBG-QYHPVV-ZBJB]Propensity to adverse reactions to drug (disorder)09-14-2023 [facility] Repository (1 source)Contrast media; Translations: [CONTRAST DYE]Propensity to adverse reactions to drug (disorder)59-44-2788IcwnhgrccSelect [facility] Medications Current Medications MedicationDrug Class(es)DatesSig (Normalized)Sig (Original)0.4 ML cyclosporine 0.5 MG/ML Ophthalmic Suspension [Restasis] (1 source)Start: 04-32-0417cbxq 1 drop(s) into the eye(s) twice dailyRestasis 0.05% ophthalmic emulsion 1 drop(s), Eye-Both, BID, Refill(s) 0 Start Date: 09/04/19 Status: Niewyzg70 ACTUAT fluticasone furoate 0.2 MG/ACTUAT / umeclidinium 0.0625 MG/ACTUAT / vilanterol 0.025 MG/ACTUAT Dry Powder Inhaler [Trelegy] (1 source)Start: 89-34-8008ycaa 1 puff(s) by inhalation once dailyTrelegy Ellipta 200-62.5-25 MCG/ACT 1 puff Inhalation Once a day for 30 days Feb, Activeacetaminophen 325 mg oral tablet (7 sources)take 2 tablets by mouth every six hours as neededacetaminophen (TYLENOL) 325 mg tablet Take 650 mg by mouth every 6 hours as needed. Active [id number] 200 actuat albuterol 0.09 mg/actuat metered dose inhaler (20 sources)beta2-Adrenergic AgonistStart: 74-26-3157Nwqduuvuk Sulfate 90 mcg/actuation HFA aerosol inhaler Active 0 .ROUTE .COMPLEX 25.5 11 June 01, 2024 7:50am USE 2 INHALATIONS ORALLY EVERY 4 HOURS NEEDED FOR COUGH OR SHORTNESS OF BREATH Complies with drug therapyStart: 61-47-4466taez 2 puff(s) by inhalation every four hoursProAir HFA 90 mcg/inh inhalation aerosol 2 puff(s), Inhalation, q4hr Shortness of breath or wheezing, Refill(s) 0 Start Date: 09/02/19 Status: OrderedStart: 10-21-2018 End: 48-31-7228Cvfrxlknb Sulfate 90 mcg/actuation HFA aerosol inhaler Discontinued 2 PUFF INHALATION As Directed as needed for Shortness Of Breath Or Wheezing October 20, 2018 11:00pm June 01, 2024 7:50amalbuterol HFA 90 mcg/act inhaler Inhale 2 puffs [...] acid 70 mg oral tablet (20 sources)BisphosphonateStart: 14-04-2242umpr 1 tablet by mouth every week Alendronate 70 mg tablet Active 70 MG PO every week 12 90 3 December 09, 2024 6:19am Complies with drug therapyStart: 01-09-2024 End: 61-78-5119Qtrrbilgewy 70 mg tablet Discontinued 0 .ROUTE .COMPLEX 12 3 January 09, 2024 11:33am December 09, 2024 6:20am TAKE 1 TABLET ONCE WEEKLY 30 MINUTES BEFORE THE FIRST FOOD, BEVERAGE OR MEDICINE OFTHE DAY WITH PLAIN WATERStart: 10-21-2018 End: 25-30-1841wcxy 1 tablet by mouth every weekAlendronate 70 mg tablet Discontinued 70 MG PO every week October 20, 2018 11:00pm January 09, 2024 11:33am osteoporosistake 1 tablet by mouth once dailyFosamax 70 MG tablet 1 tablet 30 minutes before the first food, beverage or medicine of the day with plain water Orally for 30 day(s) ActiveamLODIPine 5 mg oral tablet (20 sources)Dihydropyridine Calcium Channel BlockerStart: 58-69-0593Drnklkekur 5 mg tablet Active 0 .ROUTE .COMPLEX 90 April 27, 2024 9:06am TAKE 1 TABLET DAILYComplies with drug therapyStart: 02-20-2023 End: 28-16-9224eubt 1 tablet by mouth once dailyAmlodipine 5 mg tablet Discontinued 5 MG PO Daily 90 90 May 23, 2023 4:43pm April 27, 2024 9:07amaspirin 325 mg oral tablet (8 sources)Platelet Aggregation Inhibitor, Nonsteroidal Anti-inflammatory Drug aspirin 325 mg cap Take by mouth. Activeaspirin 81 mg EC tablet once every 24 hours. Activeaspirin 770 mg / caffeine 60 mg / orphenadrine citrate 50 mg oral tablet (8 sources)Platelet Aggregation Inhibitor, Nonsteroidal Anti-inflammatory Drug, Muscle Relaxant, Central Nervous System Stimulant, MethylxanthineStart: 10-24-9879xogu 0.5 tablet by mouth four times daily as needed for headache Rddxcelncedw-Zoy-Kyhxgoom 50-770-60 mg Tablet Active 0.5 TAB PO Four times daily as needed for Headache October 20, 2018 11:00pm Complies with drug therapy Astepro 205.5 MCG/SPRAY (1 source)Start: 62-68-0379duid 2 spray(s) nasal route twice dailyAstepro 205.5 MCG/SPRAY 2 sprays in each nostril Nasally bid for 30 days Feb, Active atorvastatin 10 mg oral tablet (20 sources)HMG-CoA Reductase InhibitorStart: 71-17-9812iwrp 1 tablet by mouth once daily in the eveningAtorvastatin 10 mg tablet Active 10 MG PO Every evening 90 90 January 25, 2025 7:00am Complieswith drug therapyStart: 01-27-2024 End: 49-33-1879Fyftdsprwngs 10 mg tablet Discontinued 0 .ROUTE .COMPLEX 90 3 January 27, 2024 1:00pm January 25, 2025 7:00am TAKE 1 TABLET EVERY EVENINGStart: 10-21-2018 End: 43-35-0248twnr 1 tablet by mouth once dailyAtorvastatin 10 mg tablet Discontinued 10 MG PO Daily October 20, 2018 11:00pm January 27, 2024 1:00pm hyperlipidemiaazelastine hydrochloride 0.137 mg/actuat metered dose nasal spray (20 sources)Histamine-1 Receptor AntagonistStart: 05-16-2023 End: 28-86-9482ovcc 2 spray(s) nasal route in the morningazelastine (Astelin) 0.1 % nasal spray Indications: Chronic rhinitis Administer 2 sprays into each n ostril in the morning and 2 sprays before bedtime. Use in each nostril as directed. 90 mL 3 05/16/2023 ActiveStart: 38-28-1675onup 2 spray(s) nasal route twice dailyAstepro 205.5 MCG/SPRAY 2 sprays in each nostril Nasally bid Feb, Activebetamethasone 0.001 mg/mg topical ointment (20 sources)CorticosteroidStart: 01-31-2024 End: 56-44-6257kbmzijxkfijrs valerate (Valisone) 0.1 % ointment Indications: Lichen sclerosus et atrophicus APPLY TO THE AFFECTED AREA EXTERNALLY TWO TIMES A DAY, REPLACES PREVIOUS SENT SCRIPT 60 g 11 01/31/2024 04/16/2024 Discontinued (Ineffective)Start: 09-17-2023 End: 80-01-6457oxwujzlnsvyzh valerate (Valisone) 0.1 % cream Indications: Lichen sclerosus et atrophicus APPLY TO THE AFFECTED AREA TWICE A DAY 60 g 2 12/31/2023 04/16/2024 Discontinued (Ineffective)Start: 60-73-3473yrgpdlntidbrc valerate (Valisone) 0.1 % ointment 09/09/2023 ActiveStart: 03-13-2023 betamethasone valerate (Valisone) 0.1 % cream Indications: Lichen sclerosus et atrophicus Apply to affected area twice daily, Replace previous sent script 60 g 3 03/13/2023 ActiveStart: 10-21-2018 End: 41-75-8832Veebvqyaztofa Valerate 0.1 % Cream Discontinued 1 APPLIC TOPICAL As Directed October 20, 2018 11:00pm January 19, 2025 12:19pmStart: 10-21-2018 Betamethasone Valerate Active 1 APPLIC TOPICAL As Directed October 21, 2018 12:00amBetamethasone Not-Taking/PRNBetamethasone Not-TakingBetamethasone Active Breo Ellipta 200 mcg-25 mcg/inh inhalation powder (9 sources)Start: 64-56-4478Tqay Ellipta 200 mcg-25 mcg/inh inhalation powder 1 inh, Inhalation, Daily, Refill(s) 0 Start Date:02/05/24 Status: Ordered Repeat number: 1Start: 36-15-5726Kpsi Ellipta 200 mcg-25 mcg/inh inhalation powder 1 inh, Inhalation, Daily, Refill(s) 0 Start Date:02/05/24 Status: OrderedStart: 08-66-6015Irxa Ellipta 200 mcg-25 mcg/inh inhalation powder 1 inh, Refill(s) 0 Start Date: 02/05/24 Status: OrderedStart: 07-12-5235eamz 1 puff(s) by inhalation once dailyBreo Ellipta 200 mcg-25 mcg/inh inhalation powder 1 puff(s), Inhalation, Daily, Refill(s) 0 Start Date: 09/02/19 Status: Ordered budesonide 0.25 mg/ml inhalation suspension (14 sources)CorticosteroidStart: 08-20-2023 End: 70-38-3418pkbv 2 mL by mouth in the morningbudesonide (Pulmicort) 0.5 MG/2ML nebulizer solution Indications: Chronic maxillary sinusitis Take 2 mL (0.5 mg) by nebulization in the morning. Rinse mouth with water after use to reduce aftertaste and incidence of candidiasis. Do not swallow.. 60 mL 11 08/20/2023 Activecalcium carbonate 600 mg chewable tablet (17 sources)Start: 45-40-1566ooco 1 tablet by mouth three times dailycalcium carbonate 600 mg oral tablet, chewable 600 mg = 1 tab(s), Chewed, TID, Refills(s) 0 Start Date: 09/04/19 Status: OrderedStart: 10-21-2018 End: 30-85-2497Jrptych Carbonate (Tums) 300 mg (750 mg) Tablet,Chewable Discontinued 2 TAB PO As Directed as needed for GERD October 20, 2018 11:00pm February 05, 2024 8:43amStart: 10-21-2018 End: 34-30-8169xxab 1 tablet by mouth three times dailyCalcium Carbonate (Calcium 500) 500 mg calcium (1,250 mg) Tablet,Chewable Discontinued 500 MG PO Three times daily October 20, 2018 11:00pm February 05, 2024 8:43am osteoporosisCalcium Carbonate / vitamin D3 (7 sources)calcium carbonate/vitamin D3 (CALCIUM + D ORAL) Take by mouth. Active Calcium with Vitamin D and Minerals oral tablet (6 sources)Start: 18-45-2340csir 1 tablet by mouth twice dailyCalcium with Vitamin D and Minerals oral tablet tab(s), Oral, BID, Refill(s) 0 Start Date: 02/05/24Status: Orderedcelecoxib 200 mg oral capsule (3 sources)Nonsteroidal Anti-inflammatory DrugStart: 05-97-6886mxoc 1 capsule by mouth once dailyCelecoxib (Celebrex) 200 mg capsule Active 200 MG PO Daily 30 30 0 December 21, 2024 11:00pm Complies with drug therapycephalexin 500 mg oral capsule (1 source)Cephalosporin AntibacterialStart: 02-05-2024 End: 87-73-1363tijl 1 capsule by mouth every twelve hoursKeflex 500 mg Cap 500 mg = 1 cap(s), Oral, q12hr, Start the morning of procedure, X 1 day(s), # 2 ca p(s), Refills(s) 0, Pharmacy: [facility], 158, cm, 02/05/24 11:08:00 EST, Height/Length Dosing, 62, kg, 02/05/24 11:08:00 EST, Weight Dosing Start Date: 02/05/24 Stop Date: 02/06/24 Status: Orderedcetirizine hydrochloride 10 mg oral tablet (20 sources)Histamine-1 Receptor AntagonistStart: 10-18-2023 End: 96-08-0291quqw 1 tablet by mouth once daily as neededCetirizine 10 mg tablet Active 10 MG PO Daily as needed February 05, 2024 12:00am Complies with drug therapyStart: 78-43-7408Lmwxga Oral, Daily, Refills(s) 0, Allergy symptoms Start Date: 08/15/23 Status: Ordered Repeat number: 1Start: 70-48-0731Errxlt Oral, Daily, Refills(s) 0, Allergy symptoms Start Date: 08/15/23 Status: Ordered Start: 25-23-0894Qjsmju Daily, Refills(s) 0 Start Date: 08/15/23 Status: Ordered Cetirizine 10 mg cap Take by mouth. Activetake 1 tablet by mouth once daily cetirizine (ZyrTEC) 10 mg tablet take 1 tablet by mouth once daily if needed for allergies Activecholecalciferol 0.05 mg oral capsule (17 sources)Vitamin DStart: 06-49-6429nrmq 1 capsule by mouth in the morningRA Vitamin D-3 50 MCG (1999) capsule Take 50 mcg by mouth in the morning. 05/18/2022 Activecholecalciferol, vitamin D3, (D3-1999 ORAL) (7 sources)cholecalciferol, vitamin D3, (D3-1999 ORAL) Take by mouth. Active cholestyramine resin 4000 mg powder for oral suspension (1 source)Bile Acid SequestrantStart: 97-44-7677Nlcwiqoq 4 g/9 g oral powder = 1 packet(s), Oral, Daily, # 30 EA, Refills(s) 3, Pharmacy: [facility], 158, cm, 08/05/24 14:23:00 EDT, Height/Length [...] oral tablet (1 source)Quinolone AntimicrobialStart: 04-07-2024 End: 74-34-4179Cvafg 500 mg Tab 500 mg = 1 tab(s), Oral, q12hr, Start morning of white removal in 1-2 days, X 1 day(s), # 2 tab(s), Refills(s) 0, Pharmacy: [facility], 158, cm, 03/24/24 11:38:00 EST, Height/Length Dosing, 75.5, kg, 03/24/24 11:38:00 EST, Weight Dosing Start Date: 04/07/24 Stop Date: 04/08/24 Status: Orderedclobetasol propionate 0.0005 mg/mg topical ointment (2 sources)CorticosteroidStart: 04-16-2024 End: 83-77-6526bscdvbwiqh (Temovate) 0.05 % ointment Indications: Lichen sclerosus et atrophicus Apply topically 2(two) times a day for 7 days 30 g 2 04/16/2024 04/23/2024 Activecodeine phosphate/guaifenesin (CODEINE-GUAIFENESIN ORAL) (7 sources)codeine phosphate/guaifenesin (CODEINE-GUAIFENESIN ORAL) Take by mouth. Activeenteric contrast (will be provided with radiology test) (1 source)Start: 10-31-2023 End: 53-29-5517ymdhgff contrast (will be provided with radiology test) For CT ENTEROGRAPHY W IVCON order Administer, As Directed One Time Only, via Oral, Rectal, both Oral and Rectal, Enteric Tube, Stoma or Indwelling Catheter, Enteric Contrast as designated per enteric contrast guidelines. 1 Each 0 10/31/2023 11/01/2023 Qglwajkkl979999 0.3 ml EPINEPHrine 1 mg/ml auto-injector (20 sources)alpha-Adrenergic Agonist, beta-Adrenergic Agonist, Catecholamine Start: 18-20-3678Xevnrlsjxnt 0.3 mg/0.3 mL auto-injector Active 0.3 MG IM every 5 to 15 minutes as needed February 05, 2024 12:00am do not exceed 3 doses per episode Complies with drug therapyStart: 97-75-4372fnwkyf 0.3 mg by intramuscular injection once as neededEpiPen 2-Giovani 0.3 mg, IntraMuscular, Once, PRN Anaphylaxis, Refills(s) 0 Start Date: 09/04/19 Status:Ordered Repeat number: 1Start: 83-40-4693jyecur 0.3 mg by intramuscular injection once as neededEpiPen 2-Giovani 0.3 mg, IntraMuscular, Once, PRN Anaphylaxis, Refills(s) 0 Start Date: 09/04/19 Status:OrderedStart: 92-28-2616twpmqu 0.3 mg by intramuscular injection onceEpiPen 2-Giovani 0.3 mg, IntraMuscular, Once, Refills(s) 0 Start Date: 09/04/19 Status: OrderedEpiPen 2-Giovani 0.3 MG/0.3ML injection syringe as directed Injection ActiveEPINEPHrine (EPIPEN) 0.3 mg/0.3 mL auto-injector Inject 0.3 mg intramuscularly as needed. ActiveEPINEPHrine 0.3 MG/0.3ML Injection Active famotidine 20 mg oral tablet (20 sources)Histamine-2 Receptor AntagonistStart: 02-05-2024 End: 41-05-0936ukzy 1 tablet by mouth once daily at bedtimeFamotidine 20 mg tablet Active 20 MG PO Daily at bedtime 90 90 3 January 19, 2025 12:38pm Complies with drug therapyStart: 01-27-2024 End: 23-12-1018Ndnltpbmhl 20 mg tablet Discontinued 0 .ROUTE .COMPLEX 90 3 January 27, 2024 12:59pm February 05, 2024 9:02am TAKE 1 TABLET AT BEDTIME Start: 66-84-1588lvzccnnhjd (Pepcid) 20 MG tablet Take by mouth 02/20/2023 ActiveStart: 12-23-2022 End: 11-48-4235uhtt 1 tablet by mouth once dailyFamotidine 20 mg tablet Discontinued 20 MG PO Daily January 27, 2024 12:00am January 27, 2024 1:00pmfluocinonide 0.5 mg/ml topical solution (11 sources)CorticosteroidStart: 41-84-1301lkcoumngfzbq (Lidex) 0.05 % external solution Indications: Pruritus Apply to affected areas on the scalp, up to twice a day when flared, 30 day supply 60 mL 11 03/07/2023 Activefluticasone propionate 0.05 mg/actuat metered dose nasal spray (20 sources)CorticosteroidStart: 59-68-3857Jjnqnl 93 mcg/inh nasal spray mcg, spray(s), BID, Refill(s) 0 Start Date: 02/05/24 Status: Ordered Repeat number: 1 Start: 57-51-6193isva 1 spray(s) nasal route twice dailyFluticasone Propionate (Xhance) 93 mcg/actuation aerosol breath activated Active 1 SPRAY INTRANASAL Twice daily February 05, 2024 12:00am into each nostril Complies with drug therapyStart: 09-23-2023 End: 56-58-1107mbyy 1 spray(s) nasal route in the morningFluticasone Propionate (Xhance) 93 MCG/ACT Exhaler Suspension Indications: Chronic pansinusitis Admi nister 1 spray into affected nostril(s) in the morning and 1 spray before bedtime. 48 mL 3 12/30/2023 ActiveStart: 07-02-2023 End: 51-64-5177impi 2 spray(s) nasal route once dailyfluticasone (Flonase) 50 MCG/ACT nasal spray Indications: Chronic pansinusitis Administer 2 sprays into each nostril Daily Shake gently. Before first use, prime pump. After use, clean tip and replacecap. 16 g 11 07/02/2023 ActiveStart: 89-15-4647olqcuksltqn 0.05 mg/inh Nasal [place] 2 spray(s), Nasal, Daily, Refill(s) 0 Start Date: 09/02/19 Status: OrderedStart: 10-21-2018 End: 58-74-0872Cnleeimpsyq Propionate 50 mcg/actuation spray,suspension Discontinued 2 SPRAY INTRANASAL Daily 16 90 3 May 23, 2023 4:44pm January 19, 2025 12:39pm sinus symptomsfluticasone propionate (XHANCE) 93 mcg/actuation nasal spray Use in each nostril two times a day. Activefluticasone propionate (Xhance) 93 mcg/actuation aerosol breath activated Administer into affected n ostril(s). Activetake 2 spray(s) nasal route once dailyFluticasone Propionate 50 MCG/ACT 2 sprays each nostril) Nasally Once a day Activetake 2 spray(s) nasal route once dailyFluticasone Propionate 50 MCG/ACT 2 sprays each nostril) Nasally Once a day ActiveFluticasone Propionate Otudev93 actuat fluticasone furoate 0.1 mg/actuat / umeclidinium 0.0625 mg/actuat / vilanterol 0.025 mg/actuat dry powder inhaler (5 sources)Anticholinergic, Corticosteroid, beta2-Adrenergic AgonistStart: 88-23-8521pnyd 1 puff(s) by inhalation once dailyTrelegy Ellipta 100-62.5-25 MCG/ACT 1 puff Inhalation Once a day for 90 days Feb, ActiveFluticasone Furoate-Vilanterol (20 sources)Corticosteroid, beta2-Adrenergic AgonistStart: 32-62-9087Qpzbmupxgzq Furoate-Vilanterol (Breo Ellipta) 200-25 mcg/dose blister with device Active 1 INH INHALATION Daily April 20, 2024 9:23am Complies with drug therapyStart: 36-99-3020Kxyualsxqqk Furoate-Vilanterol (Breo Ellipta) 200-25 mcg/dose blister with device Active 1 INH INHALATION Daily April 20, 2024 10:23am Complies with drug therapyStart: 02-05-2024 End: 16-20-7346Uflqtyxjfrs Furoate-Vilanterol (Breo Ellipta) 200-25 mcg/dose blister with device Discontinued 1 INH INHALATION Daily February 05, 2024 12:00am April 20, 2024 9:24amStart: 02-05-2024 End: 94-68-1629Xwgkrqgbhzw Furoate-Vilanterol (Breo Ellipta) 200-25 mcg/dose blister with device Discontinued 1 INH INHALATION Daily February 05, 2024 1:00am April 20, 2024 10:24amStart: 61-14-6035Zwdlgqgphdx Furoate-Vilanterol (Breo Ellipta) 200-25 mcg/dose blister with device Active 1 INH INHALATION Daily February 05, 2024 12:00amStart: 86-54-9746Kmem Ellipta 200-25 mcg/dose inhaler 01/25/2023 ActiveStart: 10-21-2018 End: 05-12-8914czzz 1 puff(s) by inhalation once dailyFluticasone Furoate- Vilanterol (Breo Ellipta) 200-25 mcg/dose blister with device Discontinued 1 PUF F INHALATION Daily October 20, 2018 11:00pm February 05, 2024 8:44am Asthma Start: 10-21-2018 End: 71-63-0975fhxr 1 puff(s) by inhalation once dailyFluticasone Furoate- Vilanterol (Breo Ellipta) 200-25 mcg/dose blister with device Discontinued 1 PUF F INHALATION Daily October 21, 2018 12:00am February 05, 2024 9:44amStart: 10-21-2018 End: 23-47-8998zquq 1 puff(s) by inhalation once dailyFluticasone Furoate- Vilanterol (Breo Ellipta) 200-25 mcg/dose blister with device Discontinued 1 PUF F INHALATION Daily October 20, 2018 11:00pm February 05, 2024 8:44amStart: 74-71-7365guni 1 puff(s) by inhalation once dailyFluticasone Furoate-Vilanterol [...] puff Inhalation daily Activefluticasone 0.05 mg/inh Nasal [place] (19 sources)Start: 46-11-3007tghtfxhbhve 0.05 mg/inh Nasal [place] 2 spray(s), Nasal, Daily, Refill(s) 0 Start Date: 09/02/19 Status: Ordered Repeat number: 1 Start: 52-54-5711tgbsvvngptl 0.05 mg/inh Nasal [place] 2 spray(s), Nasal, Daily, Refill(s) 0 Start Date: 09/02/19 Status: OrderedHair, Skin & Nails 5 mg oral capsule (8 sources)Start: 22-86-1057wfaq 1 mg by mouth once dailyHair, Skin & Nails 5 mg oral capsule mg, cap(s), Oral, Daily, Refill(s) 0 Start Date: 02/05/24 Status: Ordered Repeat number: 1Start: 50-90-0789yqda 1 mg by mouth once dailyHair, Skin [...] with radiology test) (1 source)Start: 10-31-2023 End: 98-24-5004bt contrast (will be provided with radiology test) [...] 750 mg oral tablet (5 sources)Quinolone AntimicrobialStart: 61-74-9980vpva 1 tablet by mouth every twenty-four hourslevoFLOXacin 750 MG 1 tablet Orally Once a day for 5 days Mar, Activelevothyroxine sodium 0.1 mg oral tablet (20 sources)l-ThyroxineStart: 38-43-1244jhfs 1 tablet by mouth once daily Levothyroxine 100 mcg tablet Active 100 MCG PO Daily 90 90 3 January 19, 2025 12:38pm Take on an empty stomach Complies with drug therapyStart: 56-31-3131tcub 1 tablet by mouth once dailylevothyroxine 100 mcg (0.1 mg) Tab 100 mcg = 1 tab(s), Oral, Daily, Refills(s) 0, Thyroid Start Date: 03/24/24 Status: Ordered Repeat number: 1Start: 01-27-2024 End: 08-91-0532Srnskzjbvycws 100 mcg tablet Discontinued 0 .ROUTE .COMPLEX 90 3 January 27, 2024 12:59pm January 19, 2025 12:39pm TAKE 1 TABLET DAILY ON AN EMPTY STOMACH (REPLACING 88MCG)Start: 28-58-8086neat 1 tablet by mouth once dailylevothyroxine 88 mcg (0.088 mg) Tab 88 microgram = 1 tab(s), Oral, Daily, Refills(s) 0, Thyroid Start Date: 09/04/19 Status: OrderedStart: 12-08-2007 End: 54-56-8341eoas 1 tablet by mouth once dailyLevothyroxine 100 mcg Tablet Discontinued 100 MCG PO Daily October 20, 2018 11:00pm January 27, 2024 1:00pm [facility] dx.levothyroxine (Synthroid, Levoxyl) 88 MCG tablet 1 (one) time each day at the same time Activelevothyroxine (Synthroid, Levoxyl) 100 mcg tablet once every 24 hours. Activetake 1 tablet by mouth once dailyLevothyroxine Sodium 100 MCG TAKE 1 TABLET DAILY ON AN EMPTY STOMACH. (REPLACING 88MCG) Orally Oncea day for 90 days ActiveLevothyroxine Sodium Sfmfsi99 hr loratadine 5 mg / pseudoephedrine sulfate 120 mg extended release oral tablet (20 sources)alpha-Adrenergic AgonistStart: 74-67-2707kdul 5-120 mg by mouth twice daily as neededClaritin-D 12 Hour 5-120 MG 1 tablet Orally two times daily, as needed Apr, ActiveStart: 83-50-6016ljoa 1 tablet by mouth once dailyClaritin-D 5 mg-120 mg Tab-ER 1 tab(s), Oral, Daily, Refill(s) 0 Start Date: 09/04/19 Status: OrderedStart: 10-21-2018 End: 76-53-4204kfgm 1 tablet by mouth once daily, then take 1 tablet by mouth every twenty-four hoursLoratadine-Pseudoephedrine (Claritin-D 24 Hour) 10-240 mg Tablet Extended Release 24 Hr Discontinued 1 TAB PO Daily October 20, 2018 11:00pm February 05, 2024 8:44am Sinus symptoms End: 35-23-5779mllj 1 tablet by mouth once in the morning, then take 1 tablet by mouth every twelve hours at bedtimeloratadine-pseudoephedrine ER (Claritin-D 12-hour) 5-120 MG 12 hr tablet Take 1 tablet by mouth in the morning and 1 tablet before bedtime. Do not crush, chew, or split.. 04/30/2024 Discontinued LORazepam 0.5 mg oral tablet (15 sources)BenzodiazepineStart: 41-27-3908JMJtimqbt 0.5 MG 1/2 - 1 Orally Once a day as needed for anxiety for 30 days Jan, Activemetoclopramide 10 mg oral tablet (16 sources)Dopamine-2 Receptor AntagonistStart: 35-16-8315fpnx 1 tablet by mouth onceReglan 10 mg [...] topical gel (20 sources)Nitroimidazole AntimicrobialStart: 09-15-2024 End: 75-59-9651oswtsODYERPTM (Metrogel) 1 % gel Indications: Lichen sclerosus et atrophicus Apply 1 application topically Daily Apply 1 application topically Daily 60 g 1 09/15/2024 12/14/2024 ActiveStart: 40-60-3358Kjgpwvpuetqbh 0.75 % (37.5mg/5 gram) gel Active 1 APPLICATOR VAGINAL Twice daily February 05, 2024 12:00am Complies with drug therapymetroNIDAZOLE (METROGEL) 0.75 % Vaginal Gel Use 1 Applicatorful vaginally daily at bedtime. ActivemetroNIDAZOLE 0.75 % 1 application to affected area Externally Twice a day Not-Taking/PRN24 hr mirabegron 50 mg extended release oral tablet (1 source)beta3-Adrenergic AgonistStart: 05-79-9009pdjk 1 tablet by mouth once dailyMyrbetriq 50 mg oral tablet, extended release 50 mg = 1 tab(s), Oral, Daily, # 30 tab(s), Refills(s) 6, [facility]: [id number], 158, cm, 12/01/21 9:55:00 EDT, Height/Length Dosing, 68, kg, 12/01/21 9:55:00 EDT, Weight Dosing Start Date: 12/01/21 Status: Orderedmontelukast 10 mg oral tablet (20 sources)Leukotriene Receptor AntagonistStart: 15-93-3783Tnbywgmnjtj 10 mg tablet Active 0 .ROUTE .COMPLEX 90 3 May 01, 2024 1:14pm TAKE 1 TABLET DAILY Complies with drug therapyStart: 12-26-2022 End: 67-52-8176tzac 1 tablet by mouth once dailyMontelukast 10 mg tablet Discontinued 10 MG PO Daily 90 90 3 May 23, 2023 4:44pm May 01, 2024 1:14pmMulti Vitamins oral tablet (8 sources)Start: 19-93-8202Vdfwq Vitamins oral tablet 1 tab(s), Oral, Daily, 30 tab(s), Refill(s) 0 Start Date: 02/05/24 Status: Ordered Quantity: 30.0 Unit: tab(s) Repeat number: 1Start: 30-29-8144Spqld Vitamins oral tablet 1 tab(s), Oral, Daily, 30 tab(s), Refill(s) 0 Start Date: 02/05/24 Status: Orderedmv- min/iron/folic/calcium/vitK (WOMEN'S MULTIVITAMIN ORAL) (7 sources)mv-min/iron/folic/calcium/vitK (WOMEN'S MULTIVITAMIN ORAL) Take by mouth. Activenitrofurantoin, macrocrystals 100 mg oral capsule (11 sources)Nitrofuran AntibacterialStart: 83-97-9647ibgb 1 capsule by mouth once daily at bedtimeNitrofurantoin Macrocrystal 100 mg capsule Active 100 MG PO Daily at bedtime February 05, 2024 12:00am after intercourse Complies with drug therapynitrofurantoin macrocrystal (MACRODANTIN) 100 mg capsule 100 mg by ORAL/FEEDING TUBE route. 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 60 packet 3 07/27 Zgsdty34 hr orphenadrine citrate 100 mg extended release oral tablet (13 sources)Muscle RelaxantStart: 97-64-6403wvskqbrldulm ER (NORFLEX) 100 mg tablet Two tablets daily as needed 40 tablet 0 02/06/2016 Activeorphenadrine compounding powder (8 sources)Start: 31-20-2838gsqfbcizzskf compounding powder PRN Migraine headache, Refills(s) 0 Start Date: 02/05/24 Status: Ordered Repeat number: 1 Start: 32-24-1289nihfrkunmrif compounding powder PRN Migraine headache, Refills(s) 0 Start Date: 02/05/24 Status: OrderedStart: 63-44-3691eetbzrivtbgj compounding powder Refills(s) 0 Start Date: 02/05/24 Status: Orderedoxybutynin chloride 5 mg oral tablet (3 sources)Cholinergic Muscarinic AntagonistStart: 60-38-8058byyd 1 tablet by mouth three times daily as needed for muscle spasmsoxybutynin 5 mg Tab 5 mg = 1 tab(s), Oral, TID, PRN bladder spasms, # 30 tab(s), Refills(s) 0, Pharmacy: [id number], 158, cm, 03/24/24 11:38:00 EST, Height/Length Dosing, 75.5, kg, 03/24/24 11:38:00 EST, Weight Dosing Start Date: 04/07/24 Status: Orderedpain off aspirin (1 source)Start: 27-44-6885dekf off aspirin pain off aspirin Start Date: 04/13/21 Status: Orderedpantoprazole 40 mg delayed release oral tablet (20 sources)Proton Pump InhibitorStart: 90-33-2745yiff 1 tablet by mouth in the morningPantoprazole 40 mg tablet,delayed release (DR/EC) Active 40 MG PO Every morning 90 90 January 19, 2025 12:39pm Take on an empty stomach, 30 minutes prior to bkfst Complies with drug therapyStart: 01-27-2024 End: 89-56-5675Jdvlaeolkawq 40 mg tablet,delayed release (DR/EC) Discontinued 0 .ROUTE .COMPLEX 90 January 27, 2024 12:59pm January 19, 2025 12:39pm TAKE 1 TABLET DAILY ON AN EMPTY STOMACH FOLLOWED IN 30 MINUTES BY BREAKFASTStart: 12-11-2019 End: 99-84-8859tvyz 1 tablet by mouth once dailyPantoprazole 40 mg tablet,delayed release (DR/EC) Discontinued 40 MG PO Daily January 27, 2024 12:00am January 27, 2024 1:00pmtake 1 tablet by mouth twice dailypantoprazole DR (PROTONIX) 40 mg tablet Take 40 mg by mouth two times a day. Active Pantoprazole 40 mg tablet,delayed release (DR/EC) (1 source)Start: 44-38-1560Hlgyhkdrenia 40 mg tablet,delayed release (DR/EC) Active 0 .ROUTE .COMPLEX January 27, 2024 12:59pm TAKE 1 TABLET DAILY ON AN EMPTY STOMACH FOLLOWED IN 30 MINUTES BY BREAKFASTpolyethylene glycol 3350 067853 mg / potassium chloride 2970 mg / sodium bicarbonate 6740 mg / sodium chloride 5860 mg / sodium sulfate 02797 mg powder for oral solution (7 sources)Osmotic LaxativeStart: 97-73-3276spw 3350-Electrolytes (GOLYTELY) 236-22.74-6.74 -5.86 gram suspension Indications: [...] complex 150 mg oral capsule (20 sources)Start: 82-05-9223Fkvpqlysmehyzv Iron Complex (Ferrex 150) 150 mg iron capsule Active 150 MG PO Daily February 05, 2024 12:00am Complies with drug therapyStart: 57-56-0528hono 150 mg by mouth every other dayFerrex-150 150 mg, Oral, Every other day, Refills(s) 0, Prophylaxis Start Date: 05/22/23 Status: OrderedpredniSONE 20 mg oral tablet (20 sources)Start: 06-21-2023 End: 92-87-8866qhjl 1 tablet by mouth once dailypredniSONE (Deltasone) 20 MG tablet Take 20 mg by mouth Daily 06/21/2023 04/30/2024 DiscontinuedStart: 06-21-2023 End: 68-74-2555Cgbftgadsh 20 mg tablet Discontinued 20 MG PO As Directed June 20, 2023 11:00pm February 05, 2024 8:45am 1 tab tid w/ food x 3 days, then bid w/ food x 3 days, then qd w/ food x 3 daysStart: 93-81-9160yismmnVKOY 20 MG 1 tablet Orally tid w/ food x 3 days then bid w/ food x 3 days, then qd w/ food x 3 days for 9 days Nov, Not-Taking/PRNStart: 89-20-2342sais 1 tablet by mouth every twelve hoursprednisone [...] HFA 90 mcg/inh inhalation aerosol (19 sources)Start: 63-08-1519nvdn 2 puff(s) by inhalation every four hoursProAir HFA 90 mcg/inh inhalation aerosol 2 puff(s), Inhalation, q4hr Shortness of breath or wheezing, Refill(s) 0 Start Date: 09/02/19 Status: Ordered Repeat number: 1Start: 95-67-8481qtpa 2 puff(s) by inhalation every four hoursProAir HFA 90 mcg/inh inhalation aerosol 2 puff(s), Inhalation, q4hr Shortness of breath or wheezing, Refill(s) 0 Start Date: 09/02/19 Status: Orderedsucralfate 1000 mg oral tablet (2 sources)Aluminum ComplexStart: 12-10-2024 End: 25-12-7358jrqd 1 tablet by mouth four times dailyCarafate 1 gram Tab 1 gm = 1 tab(s), Oral, QID, X 28 day(s), # 112 tab(s), Refills(s) 0, Pharmacy: [id number], 158, cm, 12/10/24 8:44:00 EDT, Height/Length [...] Date: 12/11/19 Status: OrderedTrelegy Ellipta (10 sources)Start: 50-92-1314Gzhhmpk Ellipta Inhalation, Daily, Refills(s) 0, Shortness of breath or wheezing Start Date: 05/14/23 Status: OrderedStart: 63-82-7201Ojqqedk Ellipta Inhalation, Daily, Refills(s) 0 Start Date: 05/14/23 Status: OrderedTrelegy Ellipta 200 mcg-62.5 mcg-25 mcg/inh inhalation powder (2 sources)Start: 79-58-3319gijr 1 puff(s) by inhalation once dailyTrelegy Ellipta 200 mcg-62.5 mcg-25 mcg/inh inhalation powder puff(s), Inhalation, Daily, Refill(s)0 Start Date: 02/20/23 Status: Orderedtrelegy ellipta 200-62.5-25 mcg/act aerosol powder breath activated (9 sources)Start: 72-33-2313tbtz 1 puff(s) by inhalation once dailyTrelegy Ellipta 200-62.5-25 MCG/ACT 1 puff Inhalation Once a day Feb, Active Start: 25-81-4592frag 1 puff(s) by inhalation once dailyTrelegy Ellipta 200-62.5-25 MCG/ACT 1 puff Inhalation Once a day for 30 days Feb, Active vit A/vit C/biotin/zinc/copper (GCAF-OCMF-MUGL,VIT A,C-BIOTIN, ORAL) (7 sources)vit A/vit C/biotin/zinc/copper (KVTA-XIOH-LBQC,VIT A,C-BIOTIN, ORAL) Take by mouth. ActiveVitamin D3 (18 sources)Start: 73-13-5809Iqllggj D3 Oral, Daily, Refills(s) 0, Prophylaxis Start Date: 05/14/23 Status: Ordered Repeat number: 1Start: 18-05-1852Ehmrcwd D3 Oral, Daily, Refills(s) 0, Prophylaxis Start Date: 05/14/23 Status: OrderedStart: 62-33-9663Cujzngy D3 Refills(s) 0 Start Date: 05/14/23 Status: Ordered Completed/Discontinued Medications MedicationDrug Class(es)DatesSig (Normalized)Sig (Original)acetaminophen 250 mg / aspirin 250 mg / caffeine 65 mg oral tablet (8 sources)Platelet Aggregation Inhibitor, Nonsteroidal Anti-inflammatory Drug, Central Nervous System Stimulant, MethylxanthineStart: 10-21-2018 End: 96-72-0656Nfttoem-Acetaminophen-Caffeine (Pain-Off) 250-250-65 mg Tablet Discontinued 2 TAB PO As Directed asneeded for Headache October 20, 2018 11:00pm February 05, 2024 8:42amacetaminophen 300 mg / butalbital 50 mg / caffeine 40 mg oral capsule (8 sources)Barbiturate, Central Nervous System Stimulant, Methylxanthine End: 04-05-1901Aewikybcpe-Acetaminophen-Caff (FIORICET) 50-300-40 mg cap Take by mouth. 12/27/2023 Discontinued (Other)azithromycin 500 mg oral tablet (20 sources)Macrolide AntimicrobialStart: 10-13-2024 End: 88-09-0293ukmg 1 tablet by mouth once dailyAzithromycin 500 mg tablet Discontinued 500 MG PO Daily 3 3 0 October 12, 2024 11:00pm January 12:19pmStart: 82-80-3671Vtuiobxvqqyv 250 MG as directed Orally daily for 5 days Nov, Not-Taking/PRNStart: 10-66-9980Gzpqehtzunbr 250 MG 2 tablet on the first day, then 1 tablet daily for 4 days Orally Once a day for5 day(s) Oct, Not-Taking/PRNbenazepril hydrochloride 10 mg oral tablet (20 sources)Angiotensin Converting Enzyme InhibitorStart: 10-21-2018 End: 22-82-8757wrhj 1 tablet by mouth once dailyBenazepril 10 mg tablet Discontinued 10 MG PO Daily October 20, 2018 11:00pm February 05, 2024 8:42am HTNbenzonatate 100 mg oral capsule (18 sources)Non-narcotic AntitussiveStart: 63-63-3929nlkr 1 capsule by mouth three times daily as neededTessalon Perles 100 MG 1 capsule as needed Orally Three times a day for 7 days Oct, Not-Taking/PRNbisacodyl 5 mg delayed release oral tablet (1 source)Stimulant LaxativeStart: 12-27-2023 End: 61-41-0464wgvm 4 tablets by mouth oncebisacodyl EC (DULCOLAX, BISACODYL,) 5 mg EC tablet Indications: Iron deficiency anemia due to chronic blood loss Take 4 tablets by mouth one time only for 1 dose. For rectal double balloon enteroscopy preparation. 4 tablet 12/27/2023 12/27/2023 ExpiredClaritin-D 12 Hour 5-120 MG (14 sources)Start: 18-14-5966hvyr 5-120 mg by mouth twice daily as needed Claritin-D 12 Hour 5-120 MG 1 tablet Orally two times daily, as needed Apr, Not-TakingStart: 22-07-8722cysl 5-120 mg by mouth twice daily as needed Claritin-D 12 Hour 5-120 MG 1 tablet Orally two times daily, as needed for 90 days Apr, Activecodeine phosphate 2 mg/ml / guaiFENesin 20 mg/ml oral solution (20 sources)Opioid AgonistStart: 06-21-2023 End: 40-58-4945iufg 5 mL by mouth three times daily as neededguaiFENesin-codeine (Robitussin-AC) 100-10 MG/5ML syrup Take 5 mL by mouth 3 (three) times a day as needed 06/21/2023 04/30/2024 DiscontinuedStart: 13-67-2840kpwslol-guaifenesin (Robitussin-AC) 10-100 mg/5 mL syrup Every 6 hours 06/21/2023 ActiveStart: 06-19-2023 End: 12-64-0373qjaq 1 mL by mouth every six hours as needed for coughCodeine- Guaifenesin 10-100 mg/5 mL liquid Discontinued 5 ML PO Every 6 hours as needed for cough 200 10 0 August 09, 2023 3:54pm February 05, 2024 8:43am Cough Cough, unspecifiedStart: 06-19-2023 End: 98-48-7975attx 1 mL by mouth every six hours as needed for coughCodeine- Guaifenesin 10-100 mg/5 mL liquid Discontinued 5 ML PO Every 6 hours as needed for cough 200 10 June 18, 2023 11:00pm August 09, 2023 12:02pmStart: 06-19-2023 End: 29-23-6306aozz 1 mL by mouth every six hoursCodeine-Guaifenesin Discontinued 5 ML PO Every 6 hours 200 June 19, 2023 12:00am August 09, 2023 1:02pmStart: 04-39-0696ykaj 1 mL by mouth every six hoursCodeine-Guaifenesin Active 5 ML PO Every 6 hours 200 June 19, 2023 12:00amStart: 18-52-7954ndfx 10 mL by mouth every six hours as needed for coughguaiFENesin-Codeine 100-10 MG/5ML 10 mL Orally every 6 hours as needed for cough for 7 days ActiveStart: 10-63-3735wrfy 10 mL by mouth every six hours as needed for cough guaiFENesin-Codeine 100-10 MG/5ML 10 mL Orally every 6 hours as needed for cough for 7 days ActiveStart: 54-22-6422guxw 10 mL by mouth every six hours as needed for coughguaiFENesin-Codeine 100-10 MG/5ML 10 mL Orally every 6 hours as needed for cough for 10 days Dec, Not-TakingcycloSPORINE 0.5 mg/ml ophthalmic suspension (20 sources)Calcineurin Inhibitor ImmunosuppressantStart: 10-21-2018 End: 27-06-2959polo 1 drop(s) into the eye(s) twice dailyCyclosporine (Restasis) 0.05 % Dropperette Discontinued 1 DROPS OPHTHALMIC Twice daily October 20, 2018 11:00pm February 05, 2024 8:43am Dry eyes End: 43-22-0935aefi 1 drop(s) into the eye(s) twice dailycycloSPORINE (RESTASIS) 0.05 % ophthalmic emulsion 1 Drop twice daily. 12/27/2023 Discontinued (Other) doxycycline hyclate 100 mg oral capsule (20 sources)Tetracycline-class DrugStart: 06-21-2023 End: 48-15-3210qpbp 1 capsule by mouth twice dailyDoxycycline Hyclate 100 mg capsule Discontinued 100 MG PO Twice daily August 19, 2023 11:00pm February 05, 2024 8:43amtake 1 tablet by mouth in the morningdoxycycline (Adoxa) 100 MG tablet Take 100 mg by mouth in the morning and 100 mg before bedtime. Take with a full glass of water and do not lie down for at least 30 minutes after. Activeestradiol 0.1 mg/ml vaginal cream (20 sources)EstrogenStart: 12-92-9728zwtlrybjh 0.1 mg/g Vag Crm See Instructions, 42.5 gm, Refill(s) 0, apply pea sized amount to urethra 2x/wk, [facility], 158, cm, 02/05/24 11:08:00 EST, Height/Length Dosing, 62, kg, 02/05/24 11:08:00 EST, Weight Dosing Start Date: 02/05/24 Status: Ordered Quantity: 42.5 Unit: g Repeat number: 1Start: 02-05-2024 Estradiol 0.01 % (0.1 mg/gram) cream Active 1 APPLICATOR VAGINAL Twice daily February 05, 2024 12:00am Complies with drug therapyStart: 16-79-4058rqrjxuzpn (Estrace) 0.1 MG/GM vaginal cream See Instructions, 42.5 gm, Refill(s) 0, apply pea sizedamount to urethra 2x/wk, [facility], 158, cm, 02/20/23 8:48:00 EST, Height/Length Dosing, 68.5, kg, 02/20/23 8:48:00 EST, Weight Dosing 02/20/2023 ActiveStart: 16-01-9181pmwfqulxo 0.1 mg/g Vag Crm See Instructions, 42.5 gm, Refill(s) 0, apply pea sized amount to urethra 2x/wk, [facility], 158, cm, 02/20/23 8:48:00 EST, Height/Length Dosing, 68.5, kg, 02/20/23 8:48:00 EST, Weight Dosing Start Date: 02/20/23 Status: OrderedStart: 69-02-8381rbapqpkze 0.1 mg/g vaginal cream See Instructions, Apply pea sized amount to external urethral 3 times a week for 2 weeks (at bedtime), then twice a week after for maintenance, # 42.5 gm, Refills(s) 1, Pharmacy: [facility], 158, cm, 04/13/21 9:47:00 EST, Height/Length Do... Start Date:04/13/21 Status: OrderedStart: 10-21-2018 End: 43-04-9085Wiirftwlf (Yuvafem) 10 mcg Tablet Discontinued 10 MCG Twice a Week October 20, 2018 11:00pm February 05, 2024 8:44amStart: 10-21-2018 End: 70-35-1123Rbggttmlk 10 mcg tablet Discontinued October 20, 2018 11:00pm October 21, 2018 2:20pmEstradiol (VAGIFEM) 10 mcg tab vaginal tablet Use 10 mcg vaginally once daily. Activefluconazole 150 mg oral tablet (7 sources)Azole Antifungal End: 81-47-2257egko 1 tablet by mouth oncefluconazole (DIFLUCAN) 150 mg tablet Take 150 mg by mouth one time only. 12/27/2023 Discontinued (Other)nabumetone 750 mg oral tablet (8 sources)Nonsteroidal Anti-inflammatory DrugStart: 10-21-2018 End: 29-31-9631ahxf 1 tablet by mouth once dailyNabumetone 750 mg Tablet Discontinued 1500 MG PO Daily October 20, 2018 11:00pm February 0448:45am Start: 51-91-7179eptj 1500 mg by mouth once dailyNabumetone Active 1500 MG PO Daily October 21, 2018 12:00amnitrofurantoin, macrocrystals 25 mg / nitrofurantoin, monohydrate 75 mg oral capsule (20 sources)Nitrofuran AntibacterialStart: 20-44-5916Uotivigh 100 mg Cap 100 mg = 1 cap(s), Oral, As Directed, take 1 tablet within 1 hour before or after intercourse to prevent infection., # 30 cap(s), Refills(s) 3, [facility]acy: [facility], 158, cm, 08/05/24 14:23:00 EDT, Height/Length Dosing, 77.2, kg, 08/05/24 14:23:00 EDT, Weight Dosing Start Date: 10/28/24 Status: Ordered Quantity: 30.0 Unit: cap(s) Repeat number: 4Start: 45-36-7654Bhstgqcc 100 mg Cap 100 mg = 1 cap(s), Oral, As Directed, take 1 tablet within 1 hour before or after intercourse to prevent infection., # 30 cap(s), Refills(s) 3, Pharmacy: [facility], 158, cm, 02/20/23 8:48:00 EST, Height/Length Dosing, 68.5, kg, 02/20/23 8:48:00 EST, Weight Dosing Start Date: 02/20/23 Status: Orderedomeprazole 40 mg delayed release oral capsule (20 sources)Proton Pump InhibitorStart: 10-21-2018 End: 75-42-4600eobi 1 capsule by mouth once dailyOmeprazole 40 mg Capsule,Delayed Release(Dr/Ec) Discontinued 40 MG PO Daily October 20, 2018 11:00pm February 05, 2024 8:45am GERD/PUDpsyllium 520 mg oral capsule (8 sources)Start: 10-21-2018 End: 86-19-3448Jwnfjnvq Husk (Metamucil) 0.52 gram Capsule Discontinued 1 CAP PO Twice daily October 20, 2018 11:00pm February 05, 2024 8:46am IBS triamcinolone acetonide 40 mg/ml injectable suspension (20 sources)CorticosteroidStart: 13-64-5097Culdyvt-40 July, 40 mgStart: 72-87-4156Robligm -40 mg May, 40 mg Problems Active Problems Problem ClassificationProblemDateDocumented DateEpisodic/ChronicAcute and chronic tonsillitis (2 sources)Chronic disease of tonsils AND/OR adenoids; Translations: [Other chronic diseases of tonsils and adenoids]ChronicAcute bronchitis (4 sources)Acute bronchitis; Translations: [Acute bronchitis, unspecified]Onset: 20-02-8652JfyzweipOwyakgoh reactions (3 sources)Urticaria; Translations: [Unspecified urticaria]EpisodicAnxiety disorders (16 sources)Generalized anxiety disorder; Translations: [Generalized anxiety disorder]ChronicAsthma (20 sources)Asthma; Translations: [Mild persistent asthma]Onset: 05-06-2014 41-51-3419PicyzzyNfxuxf (1 source)Asthma; Translations: [Asthma, unspecified, unspecified status]Onset: 85-74-3653Laoblow tract disease (4 sources)Postcholecystectomy syndrome; 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]Onset: 56-79-3944PcznnijyIfirkusr (20 sources)Bilateral cataracts; Translations: [Artificial lens present]Onset: [id number] obstructive pulmonary disease and bronchiectasis (1 source)Bronchitis, not specified as acute or chronicEpisodicDeficiency and other anemia (10 sources)Iron deficiency anemia due to blood loss; Translations: [Iron deficiency anemia secondary to blood loss (chronic)]40-85-8926TbqjcrpSargmumeej and other anemia (3 sources)Iron deficiency anemia secondary to blood loss (chronic); Translations: [Iron deficiency anemia dueto chronic blood loss]Onset: 12-27-2023 ChronicDeficiency and other anemia (2 sources)Anemia due to chronic blood loss; Translations: [Iron deficiency anemia secondary to blood loss (chronic)]Onset: 24-49-8067ZejdwbmXnkhggebim and other anemia (1 source)Anemia, unspecifiedEpisodicDeficiency and other anemia (5 sources)Iron deficiency anemia secondary to inadequate dietary iron intake; Translations: [Other iron deficiency anemias]EpisodicDeficiency and other anemia (2 sources)Other iron deficiency anemiasEpisodicDeficiency and other anemia (5 sources)Iron deficiency anemia; Translations: [Iron deficiency anemia, unspecified]Onset: 27-43-2918CoxguumsTvwlohqwcy and other anemia (3 sources)Anemia; Translations: [Anemia, unspecified]Onset: 69-73-7709Dqgdeeau Deficiency and other anemia (1 source)Iron deficiency anemia, unspecified; Translations: [Iron deficiency anemia, unspecified]44-52-0252GziriplmIujntvag of white blood cells (17 sources)Familial eosinophilia; 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]Onset: 009405-18-2755WmndasuQdnqiynjj of lipid metabolism (20 sources)Hyperlipidemia; Translations: [Pure hypercholesterolemia, unspecified]Onset: 902360-67-2504KlwwtxpHafgbntqa of teeth and jaw (2 sources)Periapical abscess without sinus tract; Translations: [Periapical abscess without sinus]EpisodicDiverticulosis and diverticulitis (3 sources)Diverticula of intestine; Translations: [Diverticulosis of large intestine without perforation or abscess without bleeding]Onset: 05-14-2023 ChronicEsophageal disorders (20 sources)Gastroesophageal reflux disease; Translations: [Esophageal reflux finding]Onset: 300011-83-7304WkmblonVqbjtmebu hypertension (20 sources)Elevated blood pressure; Translations: [Essential (primary) hypertension]Onset: 233248-78-0731IzaepkhSsoxtfs on above:Problem List clean-up per request of Phys. EHR CmteFracture of lower limb (14 sources)Displaced fracture of fifth metatarsal bone, right foot, subsequent encounter for fracture with routine healing; Translations: [Displaced fracture of fifth metatarsal bone, right foot, initial encounter for closed fracture] Onset: 02-69-3785XflcpxxhVsdinljss and duodenitis (3 sources)Gastritis; Translations: [Other gastritis without bleeding]Onset: 79-42-6223DnnguhmdLprdmlugpwgtv symptoms and ill-defined conditions (20 sources)Mixed incontinence; Translations: [Incontinence]Onset: 12-01-2021 ChronicHeadache; including migraine (20 sources)Tension-type headache; Translations: [Tension-type headache, unspecified, not intractable]Onset: 01-12-2016 Resolved: [id number]dru on above:Problem List clean-up per request of Phys. EHR CmteHemorrhoids (2 sources)Hemorrhoids; Translations: [Other hemorrhoids]Onset: 05-30-2023 EpisodicInflammation; infection of eye (except that caused by tuberculosis or sexually transmitteddisease) (17 sources)Keratoconjunctivitis sicca; Translations: [Keratoconjunctivitis sicca, not specified as Sjogren's, bilateral]Onset: hronic Intestinal obstruction without hernia (9 sources)Stricture of intestine; Translations: [Other intestinal obstruction unspecified as to partial versus complete obstruction]Onset: 54-56-8223Bxptanah Joint disorders and dislocations; trauma-related (2 sources)Disorder of right patellofemoral joint; Translations: [Patellofemoral disorders, right knee]Onset: 97-75-7474PqzcjmiFgmxdcpyeftle mental health disorders (2 sources)Primary insomnia; Translations: [Primary insomnia]ChronicNausea and vomiting (4 sources)Nausea; Translations: [Nausea]Onset: 85-73-5198SbtpcwctLigjukhtm of unspecified nature or uncertain behavior (2 sources)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; Translations: [Neoplasm of unspecified behavior of other genitourinary organ]Onset: 45-29-7427GkgbqpajMuzrtdhupzhjk gastroenteritis (4 sources)Noninfectious enteritis; Translations: [Noninfective gastroenteritis and colitis, unspecified]Onset: 23-84-4857TkcxnhftCskkfewmofoe breast conditions (15 sources)Fibrocystic disease of breast; Translations: [Diffuse cystic mastopathy of unspecified breast]Onset: 378677-77-1783LeghugzQypocakisnj deficiencies (16 sources)Vitamin D deficiency; Translations: [Vitamin D deficiency, unspecified]ChronicOsteoarthritis (20 sources)Arthritis of acromioclavicular joint; Translations: [Primary osteoarthritis, right shoulder]Onset: 888171-09-8858RklnbozNeyefrqjlmvu (20 sources)Age-related osteoporosis without current pathological fracture; Translations: [Primary osteoporosis]Onset: 89-43-1510XzwuxwzQlagf acquired deformities (15 sources)Equinus contracture of the ankle; Translations: [Contracture, right ankle]Onset: 940687-43-1878IgpyabxPcxlg aftercare (1 source)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; Translations: [SENIOR LIVING CURRENT USE OF ASPIRIN]Onset: 33-23-3461JtlhyxpmKcjej aftercare (3 sources)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; Translations: [OTH SENIOR LIVING CURRENT DRUG THERAPY]Onset: 86-72-0048MozvzrfyZyprh aftercare (1 source)Long-term current use of drug therapy; Translations: [Other shelter (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 therapy]EpisodicOther bone disease and musculoskeletal deformities (2 sources)Other specified disorders of bone density and structure, left thigh; Translations: [Other specifieddisorders of bone density and structure, left thigh]EpisodicOther connective tissue disease (20 sources)Supraspinatus tear; Translations: [Unspecified rotator cuff tear or rupture of left shoulder, not specified as traumatic]82-80-5299ZqxkjiqbLsetn connective tissue disease (2 sources)Unspecified rotator cuff tear or rupture of left shoulder, not specified as traumaticOnset: 10-10-2021 Resolved: 48-23-9630ZsmxjcymNdakj connective tissue disease (2 sources)Prepatellar bursitis of left knee; Translations: [Prepatellar bursitis, left knee]EpisodicOther diseases of bladder and urethra (8 sources)Urethral intrinsic sphincter deficiency; Translations: [Intrinsic sphincter deficiency (ISD)]Onset: 47-25-9371SxqbqhuqClodn diseases of kidney and ureters (1 source)Vesicoureteric reflux; Translations: [Vesicoureteral-reflux, unspecified]Onset: 85-89-1838VwmwgivuXrjka disorders of stomach and duodenum (20 sources)Stricture of duodenum; Translations: [Obstruction of duodenum]Onset: 066075-26-9449QgkapktElgix gastrointestinal disorders (2 sources)Irritable bowel syndrome characterized by constipation; Translations: [Irritable bowel syndrome with constipation]ChronicOther gastrointestinal disorders (1 source)Oropharyngeal dysphagia; Translations: [Dysphagia, oropharyngeal phase]EpisodicOther gastrointestinal disorders (1 source)Dysphagia, oropharyngeal phase; Translations: [Dysphagia, oropharyngeal phase]EpisodicOther gastrointestinal disorders (2 sources)H/O: gastrointestinal disease; Translations: [Personal history of other diseases of the digestive system]Onset: 21-03-8922JllqkecgYygnt gastrointestinal disorders (1 source)Non-steroidal anti-inflammatory drug-induced enteropathy; Translations: [Disease of intestine, unspecified]35-78-6024QrlkmcihEypav inflammatory condition of skin (1 source)Seborrheic dermatitis; [...] sources)Post-inflammatory pulmonary fibrosis; Translations: [Pulmonary fibrosis, unspecified]Onset: 703271-55-2231WxcoztbXhsut lower respiratory disease (1 source)Personal history of pneumonia (recurrent); Translations: [PERSONAL HX OF PNEUMONIA RECURRENT]Onset: 81-30-5688FzfbeuhjSmxby nervous system disorders (20 sources)Chronic pain; Translations: [Other chronic pain]ChronicOther non- traumatic joint disorders (5 sources)Pain in left shoulder; Translations: [Left shoulder pain]Onset: 10-10-2021 Resolved: 70-39-0570SdlewkivDcgky nutritional; endocrine; and metabolic disorders (1 source)Overweight; Translations: [Overweight]EpisodicOther nutritional; endocrine; and metabolic disorders (1 source)Overweight; Translations: [Overweight]EpisodicOther screening for suspected conditions (not mental disorders or infectious disease) (20 sources)Encounter for screening mammogram for malignant neoplasm of breast; Translations: [Abnormal findings on diagnostic imaging of skull and head]Onset: 99-37-5109RzmbvdbvYqvgf skin disorders (17 sources)Lichen sclerosus et atrophicus; Translations: [Circumscribed scleroderma]Onset: 095310-59-2440ElnotzeFrnqh upper respiratory disease (20 sources)Allergic rhinitis due to pollen; Translations: [Allergic rhinitis due to pollen]Onset: 185656-54-5184IrznagkUceoi upper respiratory disease (2 sources)Seasonal allergic rhinitis; Translations: [Other seasonal allergic rhinitis]Onset: 86-98-9032EsnbogtVprag upper respiratory disease (15 sources)Allergic rhinitis; Translations: [Allergic rhinitis, unspecified] 53-93-2481KqdktsxTtjoj upper respiratory disease (1 source)Allergic rhinitis, unspecified; Translations: [Allergic rhinitis, unspecified]ChronicOther upper respiratory disease (1 source)Allergic rhinitis due to pollenChronicOther upper respiratory disease (3 sources)Other allergic rhinitisChronicOther upper respiratory disease (2 sources)Dysphonia; Translations: [Dysphonia]EpisodicOther upper respiratory infections (20 sources)Chronic maxillary sinusitis; Translations: [Chronic maxillary sinusitis]Onset: 045719-73-8460JppstuiYoqcx upper respiratory infections (8 sources)Acute maxillary sinusitis; Translations: [Acute recurrent maxillary sinusitis]Onset: 95-68-1656OlidgongUqsgzv media and related conditions (4 sources)Eustachian tube disorder; Translations: [Other specified disorders of Eustachian tube, unspecified ear]EpisodicPoisoning by other medications and drugs (4 sources)Non-steroidal anti-inflammatory drug adverse reaction; Translations: [Adverse effect of other nonsteroidal anti-inflammatory drugs [NSAID], initial encounter]Onset: 442035-60-9232OowlcvsaIkqtsjyy enteritis and ulcerative colitis (15 sources)Ulcerative colitis; Translations: [Ulcerative colitis, unspecified, without complications]Onset: 515160-23-5336EsdguiuOpraxdmx codes; unclassified (1 source)Acquired absence of other specified parts of digestive tract; Translations: [ACQ ABSENCE OTH PART DIGESTV TRACT]Onset: 72-52-4953Wkarvcjp Residual codes; unclassified (1 source)Asymptomatic menopausal stateEpisodicResidual codes; unclassified (2 sources)Postmenopausal state; Translations: [Asymptomatic menopausal state] 22-90-1679JjzepzccJusegqqj codes; unclassified (3 sources)Acquired absence of organ; Translations: [Acquired absence of other specified parts of digestive tract]Onset: 55-39-0656LahgybzbLhpefwnnnol; intervertebral disc disorders; other back problems (20 sources)Cervical spondylosis; Translations: [Spondylosis without myelopathy or radiculopathy, cervical region]Onset: 240009-02-8043JtneyupAmwytka on above:MRI: L2-3 mod left foraminal stenosis, L3-4 mod left foraminal stenosis, L5S1 mod right foraminal stenosis - 12/2024Spondylosis; intervertebral disc disorders; other back problems (20 sources)Cervico-occipital neuralgia; Translations: [Occipital neuralgia] 62-49-4725QvbzdvltKghjsyx and strains (12 sources)Strain of unspecified muscle, fascia and tendon at shoulder and upper arm level, left arm, initial encounter; Translations: [Strain of muscle and tendon of back wall of thorax, initial encounter]Onset: 83-43-8331Obvidpqj Superficial injury; contusion (2 sources)Contusion of left knee; Translations: [Contusion of left knee, initial encounter]EpisodicSystemic lupus erythematosus and connective tissue disorders (1 source)Autoimmune disease; Translations: [Autoimmune disease, not elsewhere classified]Onset: 08-52-1530NmsnjaiQrlbspu disorders (20 sources)Autoimmune hypothyroidism; 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 EHR CmteUnclassified (20 sources)Asymptomatic microscopic nityffekh03-51-0343Hwbrvpvtebsg (20 sources)Finding of sensation of -90-7144Enayzpzwbhxn (1 source)CONTACT W/AND (SUSP) EXPOS COVID-19; Translations: [CONTACT W/AND (SUSP) EXPOS COVID-19]Onset: 69-54-0712Zbpnznayhjqe (2 sources)Exposure to acute respiratory syndrome coronavirus 2; Translations: [Contact with and (suspected) exposure to COVID-19]Unclassified (1 source)Long-term current use of drug therapy; Translations: [Long-term (current) use of other medications]Onset: 37-46-2531Ssjxsqvgcoem (1 source)Autoimmune disease, not elsewhere classified; Translations: [Autoimmune disease, not elsewhere classified]Onset: 21-21-6123Rvzacdujvzaz (1 source)Unspecified urticaria; Translations: [Unspecified urticaria] Unclassified (1 source)Other specified disorders of rotator cuff syndrome of shoulder and allied disorders; Translations: [Other specified disorders of rotator cuff syndrome of shoulder and allied disorders]Onset: 66-28-4235Ogprrlunbsef (1 source)Long-term (current) use of other medications; Translations: [Long-term (current) use of other medications]Onset: 73-04-9624Zpxiwsmxgwht (1 source)Bacterial infection, unspecified, in conditions classified elsewhere and of unspecified site; Translations: [Bacterial infection, unspecified, in conditions classified elsewhere and of unspecified site]Onset: 08-08-2015 Unclassified (1 source)Pain in joint, ankle and foot; Translations: [Pain in joint, ankle and foot]Onset: 41-88-7881Wbjswvvubnrc (13 sources)Stricture of small zqmhukcnv61-27-2009Iyksbgouawgy (2 sources)New Patient Visit; Translations: [New Patient Visit]Onset: 09-14-2023 Unclassified (5 sources)Lesion of vkzpidh16-20-4117 Past or Other Problems Problem ClassificationProblemDateDocumented DateEpisodic/ChronicAbdominal pain (20 sources)Epigastric pain; Translations: [Epigastric pain]Onset: 07-25-2023 39-14-6124YyfyvbxzYkrlzyccy infection; unspecified site (1 source)Bacterial infectious disease; Translations: [Bacterial infection, unspecified, in conditions classified elsewhere and of unspecified site]Onset: 46-92-2587TnafqjreQ Codes: Natural/environment (1 source)Overexertion from prolonged static or awkward postures, initial encounter; Translations: [OVEREXERTPROLNG STAT/AWK PST INIT]Onset: 03-13-2022 EpisodicEsophageal disorders (6 sources)Esophageal disorders; Translations: [Gastro-esophageal reflux disease with esophagitis, without bleeding]Gastroduodenal ulcer (except hemorrhage) (20 sources)H/O: gastric ulcer; Translations: [H/O: peptic ulcer]Onset: 12-10-2013 Resolved: 822755-19-4832VvkuqgwtNqwdhqvyxzdsz symptoms and ill-defined conditions (20 sources)Sensation as if bladder still full; Translations: [Feeling of incomplete bladder emptying]Onset: 80-05-7246QzsqamnbNghbxorx; including migraine (2 sources)Headache; Translations: [Headache]Onset: 46-59-9162Qpzjrmzi Inflammation; infection of eye (except that caused by tuberculosis or sexually transmitteddisease) (17 sources)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; Translations: [Unspecified blepharitis right eye, upper and lower eyelids]Onset: 277225-32-2838JuqjczkvCoawzqbgjo disorders (1 source)Hormone replacement therapy; Translations: [HORMONE REPLACEMENT THERAPY]Onset: 66-07-8061OzrqljjkMmvdxtkjdwu chest pain (2 sources)Chest pain; Translations: [Other chest pain]Onset: 12-29-5140Fllwnfjd Other and unspecified benign neoplasm (20 sources)History of polyp of colon; Translations: [History of colonic polyps] Onset: 612718-60-7747ZuppmxqrIaazd bone disease and musculoskeletal deformities (20 sources)Osteopenia; Translations: [Other specified disorders of bone density and structure, unspecified site]Onset: 010720-94-5727HserjstcVrzui bone disease and musculoskeletal deformities (1 source)Bone density finding; Translations: [Other specified disorders of bone density and structure, unspecified site]Onset: 48-32-4431UrmdhudaSaubi bone disease and musculoskeletal deformities (1 source)Other specified disorders of bone density and structure, unspecified site; Translations: [Oth disrdof bone density and structure, unspecified site] Onset: 50-14-7727VwyozrrqOkcea connective tissue disease (3 sources)Pain in right foot; Translations: [PAIN IN RIGHT FOOT]Onset: 02-77-6358VdhlhyruCljpi connective tissue disease (1 source)Disorder of rotator cuff; Translations: [Other specified disorders of rotator cuff syndrome of shoulder and allied disorders]Onset: 84-15-1252Iuttifcg Other connective tissue disease (1 source)Plantar fascial fibromatosis; Translations: [Plantar fascial fibromatosis]Onset: 44-40-1920OsrxjfhbGudix connective tissue disease (2 sources)Achilles bursitis; Translations: [Achilles bursitis or tendinitis] Onset: 35-25-6498CzbqtbyyRipqy connective tissue disease (1 source)Plantar fascial fibromatosis; Translations: [Plantar fascial fibromatosis]Onset: 15-22-6758LptpvurcNosuy connective tissue disease (20 sources)Right achilles tendonitis; Translations: [Achilles tendinitis, right leg]Onset: 780910-60-9681VjuhsuuvUemvi diseases of bladder and urethra (20 sources)Urethral caruncle; Translations: [Urethral caruncle]Onset: 78-94-7839WwgpybtxGqand gastrointestinal disorders (20 sources)Abdominal bloating; Translations: [Abdominal distension (gaseous)] Onset: 619597-08-6104BmmifjbsTlvjo gastrointestinal disorders (15 sources)Dysphagia; Translations: [Dysphagia, pharyngoesophageal phase]Onset: 407763-93-7505FnstcscnUumyv injuries and conditions due to external causes (15 sources)Aspiration into respiratory tract; Translations: [Unspecified foreign body in respiratory tract, part unspecified causing other injury, initial encounter]Onset: 683264-75-1141CowynldsQphfu lower respiratory disease (20 sources)Chronic cough; Translations: [Chronic cough]Onset: 07-02-2023 EpisodicOther lower respiratory disease (15 sources)Lung field abnormal; Translations: [Other nonspecific abnormal finding of lung field]Onset: 06-27-2023 Resolved: 632951-90-0164RyosflibXgpoj nervous system disorders (2 sources)Ataxic gait; Translations: [Ataxic gait]Onset: 39-85-8395Acrudytr Other non-traumatic joint disorders (1 source)Arthralgia of the upper arm; Translations: [Pain in unspecified elbow] Onset: 66-73-4347AoazxbktWacrn non-traumatic joint disorders (1 source)Shoulder joint pain; Translations: [Pain in right shoulder]Onset: 97-16-5498QjbxudxpIlkqw non-traumatic joint disorders (1 source)Arthralgia of the ankle and/or foot; Translations: [Pain in joint, ankle and foot]Onset: 92-77-8583FtzzagdoSgtmf non-traumatic joint disorders (1 source)Pain in unspecified elbow; Translations: [Pain in unspecified elbow] Onset: 76-43-5548VvetbelfDznhv non-traumatic joint disorders (1 source)Pain in right shoulder; Translations: [Pain in right shoulder]Onset: 50-36-7698EotyqhpgBatdn nutritional; endocrine; and metabolic disorders (6 sources)Body mass index 25-29 - overweight; Translations: [Body mass index 28.0-28.9, adult]Onset: 30-87-7064IkgholprQjhjh skin disorders (2 sources)Disorder of skin and/or subcutaneous tissue; Translations: [Disorder of the skin and subcutaneous tissue, unspecified]Onset: 59-33-4867XucalqcyAkaax upper respiratory disease (15 sources)Chronic hoarseness; Translations: [Dysphonia]Onset: 06-27-2023 95-63-1957TciktrpjBunof upper respiratory disease (15 sources)Stridor; Translations: [Stridor]Onset: 666144-11-8672Njnqjnkw Residual codes; unclassified (1 source)Family history of malignant neoplasm of breast; Translations: [FAMILY HX MALIG NEOPLASM OF BREAST]Onset: 82-85-4938RfvutaiwNbcgzxej codes; unclassified (1 source)Family history of malignant neoplasm of other organs or systems; Translations: [FAM HX MALIG NEOPLASM OTH ORGN/SYS]Onset: 04-37-0613Odugxved Unclassified (1 source)Onset: 013705-94-6616Mnwejtb tract infections (20 sources)Urinary tract infectious disease; Translations: [Urinary tract infection, site not specified]Onset: 12-01-2021 Resolved: 72-22-2055Gouzkmdi Results Test NameValueInterpretationReference RangeFacilityX-ray reportOrdered By: Abe Lu on 02-93-8061Imklb reportJOINT TOWNSH[facility] [address] [place] [address] XRay Report Signed Patient: Munira Chester MR#: [id number] : 1950 Acct:[id number] Age/Sex: 74 / F ADM Date: 5 [place] [facility] [place] [facility]: Espinoza Ruiz MD Copies to: Espinoza Ruiz MD~ Ordering Provider: Espinoza Ruiz MD Date of Service: 01/25/25 XR/XR shoulder LT min 2V*: M25.512 - Pain in left shoulder 4 views left compared to prior examination 10/10/2021 HISTORY: Chronic left shoulder pain with limited range of motion Adequate bony alignment without acute displaced fracture. Similar mild degeneration. No soft tissueabnormality. XR/XR shoulder LT min 2V* IMPRESSION: Similar mild degeneration. Impression dictated by: Abe Lu M.D. 01/25/2025 8:34 PM Dictation Location: RADIO-PC-20 Transcribed By: [facility] 01/25/252033 Dictated By: Abe Lu DO 01/25/252032 Signed By: 01/25/2520[address] [facility] CenterXR [facility] LT min 2V*on 42-95-7612FB shoulder LT min 2V*[facility] [address] [place] [address] XRay Report Signed Patient: Munira Chester MR#: [id number] : 1950 Acct:[id number] Age/Sex: 74 / F ADM Date: 01/25/25 [place] [facility] [place] [facility]: [facility]: Espinoza Ruiz MD Copies to: Espinoza Ruiz MD Ordering Provider: Espinoza Ruiz MD Date of Service: 01/25/25 XR/XR shoulder [...] Lu M.D. 01/25/2025 8:34 PM Dictation Location: RADIO-PC-20 Transcribed By: [facility] 01/25/252033 Dictated By: Abe Lu DO 01/25/252032 Signed By: 01/25/252033[facility] Phys[facility] GroupBasophils Auto (Bld) [#/Vol] Ordered By: Chrissy Hector on 07-24-8172Sorrigerf (Bld) [#/Vol]0.1 10 3/uL 0.0-0.1FCleveland Clinic Avon HospitalBasophils/100 WBC Auto (Bld)Ordered By: Chrissy Hector on 04-62-9861Njfixghmd/100 WBC (Bld)0.4 %0.2-2.0[facility] CenterEosinophils/100 WBC Auto (Bld)Ordered By: Chrissy Hector on 16-37-1292Lewcwxvadtj/100 WBC (Bld)5.0 %0.9-7.0[facility] Medical CenterErythrocyte distribution width Auto (RBC) [Ratio]Ordered By: Chrissy Hector on 58-57-7574Mwrxaylhtvt distribution width (RBC) [Ratio]13.0 %11.0-15.[address] [facility] Medical CenterGlobulin Calc (S) [Mass/Vol]Ordered By: Chrissy Hector on 88-23-7384Vehrsimc (S) [Mass/Vol]3.6 g/dLUniversity Hospitals St. John Medical CenterGlomerular filtration rate (GFR) estimation in non- AmericanOrdered By: Chrissy Hector on 64-17-4447KYB/1.73 sq M.predicted among non-blacks MDRD (S/P/Bld) [Vol rate/Area]59 mL/min/{1.73_m2}Low>=60 mL/min/1.73m 2FCleveland Clinic Avon HospitalHematocrit Auto (Bld) [Volume fraction]Ordered By: Chrissy Hetcor on 40-34-5327Fenlmyeihd (Bld) [Volume fraction]41.1 %36.0-48.[address] [facility] Medical CenterHemoglobin [Mass/volume] in BloodOrdered By: Chrissy Hcetor on 92-91-9296Edrandoyaq (Bld) [Mass/Vol]13.5 g/dL12.0-16.[address] [facility] Medical CenterIron binding capacity [Mass/volume] in Serum or PlasmaOrdered By: Chrissy Hector on 52-87-9039Oswu binding capacity [Mass/Vol] 287.0 ug/dL250.0-450.0[facility] Medical CenterIron saturation [Mass Fraction] in Serum or PlasmaOrdered By: Chrissy Hector on 19-62-5408Sdko saturation [Mass fraction]26.8 %[facility] CenterLaboratory - Chemistry and Chemistry - challengeOrdered By: Chrissy Hector on 01-19-2025 Albumin [Mass/Vol]4.0 g/dL3.4-5.0[facility] Medical CenterALP [Catalytic activity/Vol]120 U/NHorc44-218FcoxgotdhUniversity Hospitals St. John Medical CenterALT [Catalytic activity/Vol]25 U/N57-16ZukorisnrUniversity Hospitals St. John Medical CenterAST [Catalytic activity/Vol]17 U/E18-56ArnpvjmblUniversity Hospitals St. John Medical CenterBilirubin [Mass/Vol]0.6 mg/dL0.2-1.0[facility] Medical CenterCalcium [Mass/Vol]9.2 mg/dL 8.5-10.1FCleveland Clinic Avon HospitalChloride [Moles/Vol]106 mmol/L98-[address] [facility] Medical CenterCO2 [Moles/Vol]26.7 mmol/L21.0-32.0[facility] Medical CenterCobalamin (Vitamin B12) [Mass/Vol]712 pg/oN969-[address] [facility] Medical CenterComment on above:Performed at: [facility] [id number] Director: Bj Hair PhD, Phone: [phone] [Mass/Vol]0.94 mg/dL0.55-1.02[facility] Medical CenterFerritin [Mass/Vol]334.0 ng/mLHigh8.0-252.0[facility] Medical CenterGFR/1.73 sq M.predicted MDRD (S/P/Bld) [Vol rate/Area] mL/min/{1.73_m2}>=60 mL/min/1.73m 2FCleveland Clinic Avon HospitalGlucose [Mass/Vol]89 mg/pR58-269UldfhnrplUniversity Hospitals St. John Medical CenterIron [Mass/Vol]77.0 ug/dL50.0-170.0[facility] Medical CenterPotassium [Moles/Vol]3.3 mmol/L Low3.5-5.1FCleveland Clinic Avon HospitalProtein [Mass/Vol]7.6 g/dL6.4-8.2 [facility] Hospitalodium [Moles/Vol]145 mmol/R953-694FsujeivkdUniversity Hospitals St. John Medical CenterUrea nitrogen [Mass/Vol]16.0 mg/dL7.0-18.0[facility] Medical CenterUrea nitrogen/Creatinine [Mass ratio]17.0 mg/mgUniversity Hospitals St. John Medical CenterLaboratory - Hematology and Cell countsOrdered By: Chrissy Hector on 48-74-7710Vavhibzr granulocytes/100 WBC (Bld)0.5 %0.0-0.[address] John Medical CenterLeukocytes [#/volume] corrected for nucleated erythrocytes in Blood by Automated counOrdered By: Chrissy Hector on 01-19-2025 WBC corrected for nucl RBC Auto (Bld) [#/Vol]11.3 10 3/uLHigh4.0-11.0[facility] Medical CenterLymphocytes Auto (Bld) [#/Vol]Ordered By: Chrissy Hector on 50-28-7998Xyvpsxwslnc (Bld) [#/Vol]1.2 10 3/uL1.2-3.8[facility] John Medical CenterLymphocytes/100 WBC Auto (Bld)Ordered By: Chrissy Hector on 34-63-8560Kvkqoqufzfb/100 WBC (Bld)10.3 %Low20.5-60.0[facility] CenterH Auto (RBC) [Entitic mass]Ordered By: Chrissy Hector on 90-26-3994FTQ (RBC) [Entitic mass]31.3 pg26.7-34.0[facility] Medical CenterMCHC Auto (RBC) [Mass/Vol]Ordered By: Chrissy Hector on 22-23-5524FAQZ (RBC) [Mass/Vol] 32.8 g/dL29.9-35.2FCleveland Clinic Avon HospitalMCV Auto (RBC) [Entitic vol] Ordered By: Chrissy Hector on 77-72-2685LXL (RBC) [Entitic vol]95.4 fL81.0-99.[address] [facility] Medical CenterMonocytes Auto (Bld) [#/Vol]Ordered By: Chrissy Hector on 28-55-0990Bpsvptwso (Bld) [#/Vol]0.8 10 3/uL0.3-0.8[facility] CenterMonocytes/100 WBC Auto (Bld)Ordered By: Chrissy Hector on 68-74-1504Eatrnfjva/100 WBC (Bld)6.6 %1.7-12.0[facility] Neutrophils Auto (Bld) [#/Vol]Ordered By: Chrissy Hector on 01-19-2025 Neutrophils (Bld) [#/Vol]8.7 10 3/uLHigh1.4-6.5[facility] Neutrophils/100 WBC Auto (Bld)Ordered By: Chrissy Hector on 01-19-2025 Neutrophils/100 WBC (Bld)77.2 %High43.0-75.0[facility] CenterNo Panel InformationOrdered By: Chrissy Hector on 861783-Jjilluq Vitamin D Total47.5 ng/mLUniversity Hospitals St. John Medical CenterComment on above:<20 ng/mL Vit D jubpaqkch13-<30 ng/mL Vit D ixiicucdxclp02-522 ng/mL Vit D sufficient>100 ng/mL Potential ToxicityEosinophils # (Auto)0.6 10 3/uL0.0-0.7FCleveland Clinic Avon HospitalImmature Granulocyte # (Auto)0.06 10 3/uLHigh0.00-0.03[facility] Medical CenterPlatelet mean volume Auto (Bld) [Entitic vol]Ordered By: Chrissy Hector on 35-36-7629Ooulxsqa mean volume (Bld) [Entitic vol]9.3 fLLow 9.5-13.5FCleveland Clinic Avon HospitalPlatelets Auto (Bld) [#/Vol]Ordered By: Chrissy Hector on 62-85-6633Bodhntnjp (Bld) [#/Vol]417 10 3/lE463-428ItkjnpuiaUniversity Hospitals St. John Medical CenterRBC Auto (Bld) [#/Vol]Ordered By: Chrissy Hector on 63-30-8399BIQ (Bld) [#/Vol]4.31 10 6/uL4.20-5.40[facility] Hospitalerum or plasma albumin/globulin mass ratioOrdered By: Chrissy Hector on 50-93-2042Zkdgrnc/Globulin [Mass ratio]1.1 {ratio}[facility] Hospitalerum or plasma anion gap determinationOrdered By: Chrissy Hector on 78-10-7530Awkoz gap [Moles/Vol]15.6 mmol/LFCleveland Clinic Avon Hospital Ambulatory Visit Summaryon 82-90-4627Pskfbkfxsp Visit SummaryAmbulatory Visit Summary MUNIRA CHESTER :1950 Visit Date:12/10/2024 Ambulatory Visit Instructions Your Diagnosis Postprandial diarrhea Anemia Post-cholecystectomy syndrome Adverse reaction to NSAIDs Hx of cholecystectomy Epigastric pain Your Care Team Attending Physician - Tho VILLEGAS, Del Duckworth Primary Care Physician - CHICO BRUCE, ANDREA This Is Your Medications List sucralfate [...] spray) fluticasone nasal (fluticasone 0.05 mg/inh Nasal [place]) fluticasone-vilanterol (Breo Ellipta 200 mcg-25 mcg/inh inhalation [...] fluticasone nasal (fluticasone 0.05 mg/ inh Nasal [place]) 2 Sprays Nasal Inhalation Every day Contact [...] Mouth Every day Contact pres (morecontent not included)...[facility] Gastroenterology Office/Clinic Noteon 35-65-8192Hwwpentneeieyqkj Office/Clinic NoteGastroenterology Office/Clinic Note Chief Complaint Patient [...] treated with z-pack for GI bacteria at [place] back pain Review of Systems PHQ Score [...] day(s), # 112 tab(s), Refills(s) 0, Pharmacy: [facility], 158, cm, 12/10/24 8:44:00 EDT, [...] medications other than NS (more content not included)...[facility] CenterComment on above: Result Comment: Electronically Signed By: Tho VILLEGAS, Del Duckworth\.br\Date and Time Signed: 12/10/2508:09 EDTBasophils Auto (Bld) [#/Vol]Ordered By: Abe Mojica on 72-19-4730Qgeowxyfg (Bld) [#/Vol]0.0 10 3/uL0.0-0.1FCleveland Clinic Avon HospitalBasophils/100 WBC Auto (Bld)Ordered By: Abe Mojica on 86-47-9867Jgusloeqe/100 WBC (Bld)0.2 %0.2-2.0[facility] Eosinophils/100 WBC Auto (Bld)Ordered By: Abe Mojica on 10-02-2024 Eosinophils/100 WBC (Bld)1.1 %0.9-7.0[facility] Erythrocyte distribution width Auto (RBC) [Ratio]Ordered By: Abe Mojica on 83-39-7103Ktrltugjsft distribution width (RBC) [Ratio]12.5 %11.0-15.0[facility] Medical CenterGlomerular filtration rate (GFR) estimation in non- AmericanOrdered By: Abe Mojica on 71-31-9360ILR/1.73 sq M.predicted among non-blacks MDRD (S/P/Bld) [Vol rate/Area]mL/min/{1.73_m2}>=60 mL/min/1.73m 2FCleveland Clinic Avon HospitalHematocrit Auto (Bld) [Volume fraction]Ordered By: Abe Mojica on 00-48-2344Ppokwonwdr (Bld) [Volume fraction]37.4 %36.0-48.[address] [facility] Medical CenterHemoglobin [Mass/volume] in BloodOrdered By: Abe Mojica on 10-93-2336Zwbkmsnvoz (Bld) [Mass/Vol]12.8 g/dL12.0-16.[address] [facility] CenterLaboratory - Chemistry and Chemistry - challengeOrdered By: Abe Mojica on 30-67-0087Pznjlgd [Mass/Vol]9.0 mg/dL 8.5-10.1FC[facility] Avon HospitalChloride [Moles/Vol]106 mmol/L98-[address] [facility] Medical CenterCO2 [Moles/Vol]23.5 mmol/L21.0-32.0[facility] CenterCreatinine [Mass/Vol]0.81 mg/dL0.55-1.02[facility] Medical CenterGFR/1.73 sq M.predicted MDRD (S/P/Bld) [Vol rate/Area] mL/min/{1.73_m2}>=60 mL/min/1.[address]m [address] [place], [place] [address]Glucose [Mass/Vol]99 mg/lQ86-412EgycfonspUniversity Hospitals St. John Medical CenterPotassium [Moles/Vol] 3.5 mmol/L3.5-5.1FLicking Memorial Hospitalodium [Moles/Vol]143 mmol/L 136-145[facility] Medical CenterUrea nitrogen [Mass/Vol]12.0 mg/dL 7.0-18.0[facility] CenterUrea nitrogen/Creatinine [Mass ratio] 14.8 mg/mgUniversity Hospitals St. John Medical CenterLaboratory - Hematology and Cell countsOrdered By: Abe Mojica on 12-83-1819Wohnotdj granulocytes/100 WBC (Bld) 0.4 %0.0-0.5FCleveland Clinic Avon HospitalLeukocytes [#/volume] corrected for nucleated erythrocytes in Blood by Automated counOrdered By: Abe Mojica on 68-30-1630BIH corrected for nucl RBC Auto (Bld) [#/Vol]9.6 10 3/uL4.0-11.[address] [facility] Medical CenterLymphocytes Auto (Bld) [#/Vol]Ordered By: Abe Mojica on 18-69-1152Givhbasygso (Bld) [#/Vol]1.1 10 3/uLLow1.2-3.[address] [facility] Medical CenterLymphocytes/100 WBC Auto (Bld)Ordered By: Abe Mojica on 04-04-3042Gfuccysfwlu/100 WBC (Bld)11.2 %Low20.5-60.0[facility] Auto (RBC) [Entitic mass]Ordered By: Abe Mojica on 45-05-3172TAJ (RBC) [Entitic mass]32.2 pg26.7-34.0[facility] Medical CenterMCHC Auto (RBC) [Mass/Vol]Ordered By: Abe Mojica on 06-28-9692OKWE (RBC) [Mass/Vol]34.2 g/dL29.9-35.2FCleveland Clinic Avon HospitalMCV Auto (RBC) [Entitic vol]Ordered By: Abe Mojica on 12-82-8543LKQ (RBC) [Entitic vol]94.2 fL81.0-99.0[facility] CenterMonocytes Auto (Bld) [#/Vol]Ordered By: Abe Mojica on 19-23-9285Aryyvmvru (Bld) [#/Vol]1.1 10 3/uL High0.3-0.8[facility] CenterMonocytes/100 WBC Auto (Bld)Ordered By: Abe Mojica on 27-29-6549Uixspfcps/100 WBC (Bld)11.0 %1.7-12.0[facility] Medical CenterNeutrophils Auto (Bld) [#/Vol]Ordered By: Abe Mojica on 03-25-7486Pqkpprjenxb (Bld) [#/Vol]7.3 10 3/uLHigh1.4-6.5FCleveland Clinic Avon HospitalNeutrophils/100 WBC Auto (Bld)Ordered By: Abe Mojica on 69-36-3152Hldgawddxzc/100 WBC (Bld)76.1 %High43.0-75.0[facility] CenterNo Panel InformationOrdered By: Abe Mojica on 15-23-0245Kpjravhibzz difficile (PCR)(LAB)NegativeUniversity Hospitals St. John Medical CenterEosinophils # (Auto)0.1 10 3/uL0.0-0.7FC[facility] Clinic Avon HospitalImmature Granulocyte # (Auto)0.04 10 3/uLHigh0.00-0.03[facility] Medical CenterPlatelet mean volume Auto (Bld) [Entitic vol]Ordered By: Abe Mojica on 01-89-7653Sluxljmv mean volume (Bld) [Entitic vol]9.6 fL9.5-13.5FC[facility] Platelets Auto (Bld) [#/Vol]Ordered By: Abe Mojica on 34-23-8079Ufllleczm (Bld) [#/Vol]299 10 3/fH601-672MyqeqzxdeUniversity Hospitals St. John Medical CenterRBC Auto (Bld) [#/Vol]Ordered By: Abe Mojica on 96-71-9187GGD (Bld) [#/Vol]3.97 10 6/uLLow 4.20-5.40[facility] Hospitalerum or plasma anion gap determinationOrdered By: Abe Mojica on 94-66-3068Zyoup gap [Moles/Vol]17.0 mmol/LFCleveland Clinic Avon HospitalAmbulatory Visit Summaryon 08-05-2024 Ambulatory Visit SummaryAmbulatory [...] spray) fluticasone nasal (fluticasone 0.05 mg/inh Nasal [place]) fluticasone-vilanterol (Breo Ellipta 200 mcg-25 mcg/inh inhalation [...] cholecystectomy Post-cholecystectomy syndrome Refills: 3 Pickup at [facility] Unchanged albuterol (ProAir HFA 90 mcg/ [...] fluticasone nasal (fluticasone 0.05 mg/ inh Nasal [place]) 2 Sprays Nasal Inhalation Every day Contact [...] before or after (more content not included)...[facility] CenterGastroenterology Office/Clinic Noteon 08-05-2024 Gastroenterology Office/Clinic NoteGastroenterology Office/Clinic [...] Daily, # 30 EA, Refills(s) 3, Pharmacy: [facility], 158, cm, 08/05/24 14:23:00 EDT, Height/Length Dosing, 77.2, kg, 08/05/24 14:23:00 EDT, Weight Dosing 2. Hx of cholecystectomy, (Z90.49: Acquired absence of other specified parts of digestive tract)S/Pcholecystectomy Ordered: cholestyramine, = 1 packet(s), Oral, Daily, # 30 EA, Refills(s) 3, Pharmacy: [facility], 158, cm, 08/05/24 14:23:00 EDT, Height/Length Dosing, 77.2, kg, 08/05/24 14:23:00 EDT, Weight Dosing 3. Adverse reaction to NSAIDs (T39.395A: Adverse effect of other nonsteroidal anti-inflammatory drugs [NSAID], initial encounter) Ordered: cholestyramine, = 1 packet(s), Oral, Daily, # 30 EA, Refills(s) 3, Pharmacy: [facility], 158, cm, 08/05/24 14:23:00 EDT, Height/Length Dosing, 77.2, kg, 08/05/24 14:23:00 EDT, Weight Dosing 5. Post-cholecystectomy syndro (more content not included)...[facility] CenterComment on above:Result Comment: Electronically Signed By: Tho VILLEGAS, Del Duckworth\.br\Date and Time Signed: 08/05/2513:45 EDTReminderson 72-69-3244WtlmnwwzyByjqqwpsx From: Pat Martinez MA To: [facility] - Reminders/Recalls; Sent: 08/05/2024 13:08:13 EDT Show up: 05/16/2029 13:08:00 EST Subject: Ambulatory Reminder Due Date/Time: 07/13/2029 13:08:00 EDT Reminder/Recall 5 year colon 07/13[facility]24 [facility]AN[facility] POSTPROC EVALon [id number] POSTPROC EVALHNO ID: [id number] Author: LUZ ELENA FRANKLIN MD Service: ? [...] Scheduled Providers: Kasey Fallon MD; Rosaura Marie APRN.UTILITY MAINTENANCE WORKER; Luz Elena Franklin MD Responsible Provider: Luz [...] July 13, 2024 TIME: 4:28 PM CSN: [id number]'s Hospital for Rehabilitation PRE-OPon [id number] PRE-OPHNO ID: [id number] Author: LUZ ELENA FRANKLIN MD Service: ? Author Type: Physician Type: Anesthesia Preprocedure Evaluation Filed: 07/13/2024 13:38 Note Text: ANESTHESIOLOGY DAY OF SURGERY NOTE : 1950 Procedure Information Date/Time: 07/13/24 1300 Scheduled providers: Kasey Fallon MD; Rosaura Marie APRN.UTILITY MAINTENANCE WORKER; Luz Elena Franklin MD Procedure: ENTEROSCOPY Location: [...] and consent discussed: yes. Patient / Responsible Democrat agrees to proceed: yes Patient / Surrogate [...] ORAL) Take by mouth. vit A/vit C/biotin/zinc/copper (JTNK-WXMI-UGYX,VIT A,C-BIOTIN, ORAL) Take by mouth. aspirin 325 [...] (FLONASE) 50 mcg/actuation nasal spray Use 1 [place] in each nostril once daily. atorvastatin (LIPITOR) [...] 48 hours of Surgery/Pr (more content not included)...NormalOhiohealth Grant Medical CenterEnteroscopy Study observation Narrativeon 93-34-6741Encxfeglc ClinicRadiology Study observation (narrative)[facility] HospitalHISTORY PHYSICALon [id number] PHYSICALHNO ID: [id number] Author: KASEY FALLON MD Service: Gastroenterology Author [...] ORAL) Take by mouth. vit A/vit C/biotin/zinc/copper (FWOK-VLEK-XKEH,VIT A,C-BIOTIN, ORAL) Take by mouth. aspirin 325 [...] (FLONASE) 50 mcg/actuation nasal spray Use 1 [place] in each nostril once daily. atorvastatin (LIPITOR) [...] PATIENT NAME: Munira Chester DATE: 07/13/2024 [facility]: [facility] PROGon [id number] PROG HNO ID: [id number] Author: LINDA ALVARADO RN Service: ? Author [...] REFERRAL (RECOMMENDATION): None Electronically Signed By: Hiro SilverioLake County [facility] NURSING PRONO ID: [id number] Author: MARY CALLEJAS RN Service: ? Author [...] By: Mary Callejas RN In Department: GASTROENTEROLOGY NormalOhiohealth Grant Medical CenterPathology biopsy report David (Tiss)on 07-13-2024 AP DISCLAIMERNoLake County Memorial Hospital - WestComment on above:Order Comment: Specimen Type: TISSUE SPECIMENOrdering Facility: [facility] Address: [address] [place], [place] [address]Result Comment: Laboratory Developed Test (LDT) Disclaimer: Performance characteristics of immunohistochemical, immunofluorescent, and chromogenic in-situ hybridization tests have been determined by the performing laboratory within [facility]'s [facility] Pathology and Laboratory Medicine Department ([facility], [facility], [facility], [facility], [facility], [facility], or [facility]) in a manner consistent with CLIA requirements. One or more of these tests may not have been cleared or approved by the FDA. [facility]M is regulated under CLIA as qualified to perform high- complexity testing. These tests are used for clinical purposes. These should not be regarded asinvestigational or for research. Positive and negative controls stain appropriately.Performed By: #### 27165-5 ####[facility] LABORATORYCLIA [id number] [address] LABCLIA [id number] [address]ETCASE REPORTNormalCLima City Hospital on above:Order Comment: Specimen Type: TISSUE SPECIMENOrdering Facility: [facility] Address: [address] [place], [place] [address]Result Comment: Surgical Pathology Report Case: [id number] Authorizing Provider: Kasey Fallon MD Collected: 07/13/2024 03:06 PM Ordering Location: Gastroenterology Received: 07/13/2024 06:18 PM Pathologist: Espinoza Sharp MD Specimens: A) - Small Bowel, Ileum, Biopsy, Mid ileal stricture B) - Small Bowel, Ileum, Biopsy, Distal ileal C) - Small Bowel, Terminal Ileum, Biopsy D) - Colon, Hepatic Flexure, PolypPerformed By: #### 50155-3 ####[facility] LABORATORYIA [id number] [address] LABCLIA [id number] [address]ETFINAL DIAGNOSISNormal [facility] on above:Order Comment: Specimen Type: TISSUE SPECIMENOrdering Facility: [facility] Address: [address] [place] [id number] Comment: A. Mid ileal stricture, biopsy: - Small bowel mucosa with ulcer. - Negative for dysplasia or granulomas. B. Ileum, biopsy: - Small bowel mucosa with no significant pathologic changes. C. Terminal ileum, biopsy: - Small bowel mucosa with no significant pathologic changes. D. Hepatic flexure, polypectomy: - Fragments of tubular adenoma. at 1114 EDTPerformed By: #### 77585-8 ####[facility] LABORATORYCLIA [id number] [address] LABCLIA [id number] [address]ETFINVT PERFORMING LABNormalCLima City Hospital on above:Order Comment: Specimen Type: TISSUE SPECIMENOrdering Facility: [facility] Address: [address] [place] [address]Ngobqo Comment: Diagnostic interpretation performed at: [facility], [address] [address] CLIA# [id number] Medieval English Literature Professor: LIZ Rodriguezerformed By: #### 34132-3 ####[facility] LABORATORYCLIA [id number] [address] LABCLIA [id number] [address]GROSS DESCRIPTION NormalUpper Valley Medical Center on above:Order Comment: Specimen Type: TISSUE SPECIMENOrdering Facility: [facility] Address: [address] [place], [place] [address]Result Comment: A. Small Bowel, Ileum, Biopsy Received [...] in one cassette. Gross examination performed at [facility], [facility] July 13, 2024 10:18 PMPerformed By: #### 58763-3 ####[facility]ORATORYCLIA [id number] [address] LABCLIA [id number] [facility] HOSPITALDESK [address]Ambulatory Visit Summaryon 59-97-7652Ghbighfbaz Visit SummaryAmbulatory Visit Summary MUNIRA CHESTER :1950 [...] spray) fluticasone nasal (fluticasone 0.05 mg/inh Nasal [place]) fluticasone-vilanterol (Breo Ellipta 200 mcg-25 mcg/inh inhalation [...] Someone Will Contact You Regarding These Appointments [facility] External Ambulatory Referral, Urology, Dr. Janae Caban at [facility], 07/08/24 9:53:00 EDT, Intrinsic sphincter deficiency (ISD) [...] fluticasone nasal (fluticasone 0.05 mg/ inh Nasal [place]) 2 Sprays Nasal Inhalation Every day Contact [...] day Epigastric pain Ab (more content not included)...[facility] CenterUrology Office/Clinic Noteon 63-26-9754Haajxam Office/Clinic NoteUrology Office/Clinic Note Chief Complaint F/U with PVR HPI Staff 73 year old female patient here for 1 month follow up from [facility] 06/02/24 with PVR. Previous dx: mixed incontinence, [...] . -Refer to Dr. Janae Caban at [facility] for further w/up such as video [...] Ref[facility] to [facility] J[facility] Caban at [facility] Patient Education Urinary Incontinence I, Ailyn Aranda, personally scribed for Dr. Buchanan on 07/08/2024 09:53:11. . Documentation recorded by the scribe, Ailyn Aranda, accurately reflects the services(s) I performed and decisions made by me. Authenticated by Dr. Buchanan on 07/08/2024 10:36:35. Problem List/Past Medical History Ongoing Abdominal bloating Acute allergic rhinitis due to pollen Arthritis Asthma Asymptomatic m (more content not included)...[facility] Comment on above:Result Comment: Electronically Signed By: Asuncion Buchanan MD\.br\Date and Time Signed: 07/08/24 10:37EDT\.br\Electronically Co-Signed By: Ailyn Aranda\.br\Date and Time Co-Signed: 07/08/24 09:53 EDTNROSALINE PROG on [id number] PROGHNO ID: [id number] Author: NOEMÍ WILLIAM, MARIA D Service: ? Author Type: Registered Nurse Type: Nursing Progress Note Filed: 07/06/2024 13:25 Note Text: Attempted to reach the patient at the contact number that they provided [phone] (home) [phone] (work) . 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 they must have a responsible [...] Number to call with questions or concerns [phone] Number to call to cancel their procedure [phone] Noemí William RNNoLake County Memorial Hospital - WestCNPNon 63-25-8245FLGYMplexntaj (GAPRA3) MUNIRA CHESTER ([id number]) 1950 F Date Time Provider Department 07/01/24 JACQUELINE HONGRA3 During your visit today, we recorded the [...] Assessed Reason for Visit: Education Of Patient/family [444] Patient Question [6557] Cmt: Message sent to referring physician regarding [...] Take by mouth. - vit A/vit C/biotin/zinc/copper (RDTO-TJTC-PZKG,VIT A,C-BIOTIN, ORAL) Take by mouth. - aspirin [...] (FLONASE) 50 mcg/actuation nasal spray Use 1 [place] in each nostril once daily. - atorvastatin [...] [M*04/11/2016 Encounter Status:Closed by JACQUELINE HONG on 07/01/24[facility] HospitalMain OR Intraoperative Recordon [id number] OR Intraoperative Record Main OR Intraoperative Record IntraOp Document Type FT Summary Primary Physician: Asuncion Buchanan MD Finalized Date/Time: 06/03/24 11:56:15 Pt. Name: MUNIRA CHESTER/Sex: 1950 Female Med Rec #: [id number] Physician: Asuncion Buchanan MD Financial #: [id number] Pt. Type: A Room/Bed: [address] [address] Admit/Disch: 06/02/24 05:52:59 - 06/02/24 10:10:00 Institution: Case Times FT Entry 1 Patient Times In Room 06/02/24 08:11:00 Out Room 06/02/24 08:34:00 Procedure Times Start 06/02/24 08:22:00 Stop 06/02/24 08:30:00 Anesthesia Times Start 06/02/24 08:11:00 Stop 06/02/24 08:34:00 Last Modified By: Mars KILLIAN, Luz Elena Walden 06/02/24 08:34:37 Case Attendance FT Entry 1 Entry 2 Entry 3 Case Attendee Cyrus Cottrell CRNA, MD, Asuncion Crews RN, Luz Elena Walden Role Performed UTILITY MAINTENANCE WORKER Surgeon - Primary Hvac Specialist - Primary Time In 06/02/24 08:11:00 06/02/24 08:11:00 06/02/24 08:11:00 Time Out 06/02/24 08:34:00 06/02/24 08:34:00 06/02/24 08:34:00 Procedure CYSTOSCOPY(.) CYSTOSCOPY(.) CYSTOSCOPY(.) Comments DR. VALDERRAMA SUPERVISING Last Modified By: Mars RN, Luz Elena Crews RN, Luz Elena Crews RN, Luz Elena Walden 06/02/24 Holly Walden 06/02/24 Holly Walden 06/02/24 08:34:38 08:34:38 08:34:38 Entry 4 Case Attendee Lucas Harper Role Performed Scrub - Primary Time In 06/02/24 08:11:00 Time Out 06/02/24 08:34:00 Procedure CYSTOSCOPY(.) Comments ALF LOPEZ, RECORDS COORDINATOR STUDENT FOLLOWING Last Modified By: Mars KILLIAN, [...] Given Participants Cyrus Cottrell CRNA, Ferrer RN, Luz Elena Walden, Lucas Harper Time Out Complete 06/02/24 08:22:00 Outcomes Met? Yes Last Modified By: Mars KILLIAN, Luz Elena Walden 06/02/24 08:24:59 Post-Care Text: The patient is [...] and tissue Entry 1 Skin Integrity Intact, [place], Warm, & Skin Abnormality Yes Dry, Red [...] at Left Leg Posi (more content not included)...[facility] CenterDischarge Instructionson 06-02-2024 Discharge InstructionsDischarge Instructions MUNIRA CHESTER [...] spray) fluticasone nasal (fluticasone 0.05 mg/inh Nasal [place]) fluticasone-vilanterol (Breo Ellipta 200 mcg-25 mcg/inh inhalation [...] up in 1 month for PVR Where: [address], [address] [address]- [phone] Business (1) Medications What How Much When Why Instructions Next Dose New cephalexin (Keflex 500 mg Cap) 1 Capsules By Mouth Every 12 hours Duration: 4 Days Post procedure Pickup at [facility] Unchanged albuterol (ProAir HFA 90 mcg/ [...] fluticasone nasal (fluticasone 0.05 mg/ inh Nasal [place]) 2 Sprays Nasal Inhalation Every day Unchanged [...] H/O gastric ulcer BMI 29.0-29.9,adult Pharmacy Information [facility]: [address] [place], [place] [phone] Test Results No qualifying data available. Allergies Bee Stings (SOB - Shortness of breath, Hives) amoxicillin (Rash) contrast media (iodine-based) (SOB - Shortness of breath, (more content not included)...[facility] CenterComment on above:Result Comment: Electronically Signed By: Aleyda KILLIAN, Roxanne Mitchell\.br\Date and Time Signed: 06/02/24 09:01 EDTInpatient Patient Summaryon [id number] Patient SummaryInpatient Patient Summary [address] [address] [facility] Clinical Discharge Instructions PERSON INFORMATION Name: MUNIRA CHESTER PHYSICIANS Admitting Physician: Asuncion Buchanan MD Attending Physician: Asuncion Buchanan MD PCP: ANDREA GOLDEN DO Discharge Diagnosis: Intrinsic sphincter deficiency (ISD) Comment: PATIENT EDUCATION INFORMATION Instructions: Dewayne Walker Post-Op Instructions (CUSTOM) Medication Leaflets: Follow up: With: Address: When: Asuncion Buchanan [address] [place] [address], [place] [address], [address] [phone] Business (1) Comments: Call to schedule your follow up in 1 month for PVR MEDICATION LIST New Medications [facility], [address] [place] [phone], [phone] cephalexin (Keflex 500 mg Cap) 1 Capsules [...] day. fluticasone nasal (fluticasone 0.05 mg/inh Nasal [place]) 2 Sprays Nasal Inhalation every day. fluticasone [...] Tablets By Mouth every day. Refills: 1. Comment:[facility] CenterMain OR PACU I Recordon 56-49-2520Cqqz OR PACU I RecordMain OR PACU I Record PACU Phase I Document Type FT Summary Primary Physician: Asuncion Buchanan MD Finalized Date/Time: 06/02/24 09:13:02 Pt. Name: MUNIRA CHESTER Aviva/Sex: 1950 Female Med Rec #: [id number] Physician: Asuncion Buchanan MD Financial #: [id number] Pt. Type: A Room/Bed: [address] [place] [address] Admit/Disch: 06/02/24 05:52:59 - Institution: Case Times [...] Signatures Signed By: Shruthi Cabezas RN 06/02/24 09:13Louis [facility] OR PACU II Recordon [id number] OR PACU II RecordMain OR PACU II Record PACU Phase II Document Type FT Summary Primary Physician: Asuncion Buchanan MD Finalized Date/Time: 06/02/24 10:20:05 Pt. Name: MUNIRA CHESTER/Sex: 1950 Female Med Rec #: [id number] Physician: Asuncion Buchanan MD Financial #: [id number] Pt. Type: A Room/Bed: [place] [address] Admit/Disch: 06/02/24 05:52:59 - Institution: Case Times [...] Signatures Signed By: Roxanne Maynard RN 06/02/24 10:20[facility] Preoperative Recordon [id number] OR Preoperative RecordMain OR Preoperative Record PreOp Document Type FT Summary Primary Physician: Asuncion Buchanan MD Finalized Date/Time: 06/02/24 08:29:55 Pt. Name: CATHERINE MUNIRAERICK Chicas/Sex: 1950 Female Med Rec #: [id number] Physician: Asuncion Buchanan MD Financial #: [id number] Pt. Type: A Room/Bed: [place] [address] Admit/Disch: 06/02/24 05:52:59 - Institution: Case Times [...] Signed By: Luz Elena Crews RN 06/02/24 08:29[facility] Operative Reporton [id number] ReportOperative Report Patient: MUNIRA CHESTER Age: 73 years Sex: Female : 1950 Associated Diagnoses: None Author: Asuncion Buchanan MD Procedure Procedure Date: 06/02/2024. Confirmed: patient, procedure, site, safety procedures followed. Performed by: Asuncion Buchanan MD, anesthesiologist (Cyrus Cottrell CRNA). Type of procedure: Type of procedure: Cystoscopy, injection of urethral bulking agent (Bulkamid) CPT 56574. . 73-year-old female with a history of [...] and Plan Diagnosis Intrinsic sphincter deficiency (ISD) (YRR23-OA N36.42, Discharge, Medical). Diagnosis Intrinsic sphincter deficiency (ISD) (LLG00-ZK N36.42, Discharge, Medical). [facility] CenterComment on above:Result Comment: Electronically Signed By: Dewayne VILLEGAS, Asuncion Santos.melissa\Date and Time Signed: 06/02/24 08:46EDT Outpatient Surgery Discharge Instructionon [id number] Surgery Discharge InstructionOutpatient Surgery Discharge Instruction [address] [address] Patient Discharge Instructions PERSON INFORMATION Name: MUNIRA [...] Follow up: With: Address: When: Asuncion Buchanan [address] [place] [phone] Business (1) Comments: Call to schedule your follow up in 1 month for [facility] Information: You may receive a survey from [employer] asking you to rate your care experience. Your feedback is important and will help us understand what we do well and how we can improve the quality of care we provide to you, your loved ones and our community. It???s an honor to serve you. Thank you for choosing [facility] HERE ARE THE MEDICATION CHANGES THAT OCCURRED DURING YOUR HOSPITAL STAY New Medications [facility] [address], [address] [place], [place] [phone], [phone] cephalexin (Keflex 500 mg Cap) 1 Capsules [...] day. fluticasone nasal (fluticasone 0.05 mg/inh Nasal [place]) 2 Sprays Nasal Inhalation every day. fluticasone [...] 1. PATIENT EDUCATION INFORMATION Instructions: [facility] [place] Post-Operative Instructions for Bulkamid Congratulations on [...] and urethra following the procedure. (morecontent not included)...[facility] CenterC Urineon [id number] identified Cx Nom (U)Microbiology PROCEDURE: Urine Culture [R1] SOURCE: U CleanCatch BODY SITE: COLLECTED DATE/TIME: 05/20/2024 07:49 EST RECEIVED DATE/TIME: 05/20/2024 11:21 EST START DATE/TIME: 05/20/2024 11:21 EST FREE TEXT SOURCE: Dewayne VILLEGAS, Asuncion Buchanan MD, Asuncion London FINAL REPORTS Final Report [] Verified Date/Time: 05/22/2024 07:12 EST 6,000 cfu/ml Mixed skin contaminants Performing Locations R1: This test was performed at: [facility], [address] [place] [address], [address] , [place], OhtxehAusebkLouis [facility] CenterComment on above:Performed By: #### [id number] #### [facility] [address], [place] [address]Wdqjqbxxv By: #### [id number] ####[facility] [address] [place], [place] [address]EYPOwg [id number] (GASTA5) MUNIRA CHESTRE ([id number]) 1950 F Date Time Provider Department 05/22/24 [...] Fully Assessed Reason for Visit: Patient Question [0697] Prescriptions as of 05/25/2024 - amLODIPine (NORVASC) [...] Take by mouth. - vit A/vit C/biotin/zinc/copper (OLIH-YVCD-EMHX,VIT A,C-BIOTIN, ORAL) Take by mouth. - aspirin [...] (FLONASE) 50 mcg/actuation nasal spray Use 1 [place] in each nostril once daily. - atorvastatin [...] [M*04/11/2016 Encounter Status:Closed by HOLLIS MCKEON on 05/22/24[facility] with Cult Rflxon [id number] Auto Ql (U)2+ /HPFAbnormalTraceUk HealthcareComment on above:Performed By: #### [id number] #### [facility] [address], [place] [address]Qouubkmsx Ql (U)NegativeNormalNegativeUk HealthcareComment on above:Performed By: #### [id number] #### [facility] [address], [place] [address]Hxwmqlc oxalate crystals Computer assisted Ql (U)Present AbnormalUk HealthcareComment on above:Performed By: #### [id number] #### [facility] [address], [place] [address]Trlzugi (U)TurbidAbnormalClearFisher [facility] Comment on above:Performed By: #### [id number] #### [facility] [address], [place] [address]Cgrcw (U)YellowNormalYellowUk HealthcareComment on above:Result Comment: Microscopic readings are only performed on those samples that meet specific criteria set forth by [facility].Performed By: #### [id number] #### [facility] [address], [place] [address]Mdrsdvnxdr cells.squamous Auto (Urine sed) [#/Area]0-2Invalid Interpretation CodeUk HealthcareComment on above:Performed By: #### [id number] #### [facility] [address] [place] [address]Msbwohh Ql (U)NegativeNormalNegRegency Hospital [facility] Comment on above:Performed By: #### [id number] #### [facility] [address] [place] [address]Nnmjymazwc Auto test strip (U) [Mass/Vol]NegativeNormalNegative [facility] HealthcareComment on above:Performed By: #### [id number] #### [facility] [address] [place] [address]Gndbqje casts LM Ql (Urine sed)6-76Jvsyarie2-8Gfjtou [facility] CenterComment on above:Performed By: #### [id number] #### [facility] [address] [place] [address]Gkewbjz Auto test strip Ql (U)NegativeNormalNegativeUk HealthcareComment on above:Performed By: #### [id number] #### [facility] [address] [place] [address]Papsgryvm esterase Auto test strip Ql (U)25 Rosemarie/uLNormal NegativeUk HealthcareComment on above:Performed By: #### [id number] #### [facility] [address] [place] [address]Fqsam Auto Ql (U)4+ CD:[id number] [facility]itus Medical CenterComment on above:Performed By: #### [id number] #### [facility] [address] [place] [address]Bgwiowr Auto test strip Ql (U)NegativeNormalNegativeUk HealthcareComment on above:Performed By: #### [id number] #### Garay [facility] [address] [place] [address] 85208bE (U)5.5 [pH]Invalid Interpretation Code5.0-9.0Uk HealthcareComment on above:Performed By: #### [id number] #### Garay [facility] [address] [place] [address]Zandnoc Ql (U)1+ mg/dLAbnormalNegRegency Hospital Cleveland EastComment on above:Performed By: #### [id number] #### [facility] [address] [place] [address]Kcptxcyx gravity (U) [Rel density]1.034Invalid Interpretation Code1.005-1.030Uk HealthcareComment on above:Performed By: #### [id number] #### [facility] [address] [place] [address]Lnxrsrapfjdk (U) [Mass/Vol]2 mg/dLAbnormalNegRegency Hospital Cleveland EastComment on above:Performed By: #### [id number] #### [facility] [address] [place] [address]RIQ Auto (Urine sed) [#/Area]6-40Wegqpmjf4-9Pawllv [facility] CenterComment on above:Performed By: #### [id number] #### [facility] [address] [place] [address]Zdtl of Urine collection methodClean CatchNormalUk HealthcareComment on above:Performed By: #### [id number] #### [facility] [address] [place] [address]YXDYOQUGGAKuwgaib By: SYSTEM SYSTEM on 77-66-4171Rczuxgwq Auto Ql (U)2+ /HPFInvalid Interpretation CodeTrace/HPFFTMC UA Auto SSBilirubin Ql (U) NegativeNormalNegativemg/dLFT UA Auto SSCalcium oxalate crystals Computer assisted Ql (U)Present graded/HPFInvalid Interpretation CodeFT UA Auto SS Clarity (U)Turbid *ABN* (05/20/24 7:49 AM)Invalid Interpretation CodeClearFTMC UA Auto SSColor (U)Yellow 1 (05/20/24 7:49 AM)NormalYellowFT UA Auto SSComment on above:Interpretive Data: Microscopic readings are only performed on those samples that meet specific criteria set forth by [facility].Epithelial cells.squamous Auto (Urine sed) [#/Area]0-2 graded/HPFInvalid Interpretation CodeFT UA Auto SSGlucose Ql (U)NegativeNormalNegativemg/dLFT UA Auto SS Hemoglobin Auto test strip (U) [Mass/Vol]NegativeNormalNegativemg/dLFTMC UA Auto SSHyaline casts LM Ql (Urine sed)4-10 graded/LPFInvalid Interpretation Code 0-3graded/LPFFTMC UA Auto SSKetones Auto test strip Ql (U)NegativeNormal Negativemg/dLFTMC UA Auto SSLeukocyte esterase Auto test strip Ql (U)25 Rosemarie/uL Rosemarie/uLNormalNegativeLeu/uLFT UA Auto SSMucus Auto Ql (U)4+ graded/LPFInvalid Interpretation CodeNegativegraded/LPFFTMC UA Auto SSNitrite Auto test strip Ql (U)NegativeNormalNegativemg/dLFTMC UA Auto SSpH (U)5.5 *NA* (05/20/24 7:49 AM)Invalid Interpretation Code5.0 - 9.0FT UA Auto SSProtein Ql (U)1+ mg/dLInvalid Interpretation CodeNegativemg/dLFTMC UA Auto SSSpecific gravity (U) [Rel density]1.034 *NA* (05/20/24 7:49 AM)Invalid Interpretation Code1.005 - 1.030FTMC UA Auto SS Urobilinogen (U) [Mass/Vol]2 mg/dLInvalid Interpretation CodeNegativemg/dLFTMC UA Auto SSWBC Auto (Urine sed) [#/Area]6-15 graded/HPFInvalid Interpretation Code0-5graded/HPFFTMC UA Auto SSURINALYSISOrdered By: Lorin Marks on 02-35-7974JM Spec DescClean Catch (05/20/24 7:49 AM)Critical access hospital UA Auto SSAmbulatory Visit Summaryon 04-22-2024 Ambulatory [...] spray) fluticasone nasal (fluticasone 0.05 mg/inh Nasal [place]) fluticasone-vilanterol (Breo Ellipta 200 mcg-25 mcg/inh inhalation [...] fluticasone nasal (fluticasone 0.05 mg/ inh Nasal [place]) 2 Sprays Nasal Inhalation Every day Contact [...] day Contact prescribing ph (more content not included)...[facility] CenterUrology Office/Clinic Noteon [id number] Office/Clinic NoteUrology Office/Clinic Note Chief Complaint 2 venetie path review HPI Staff 73yr old female [...] 4. Recurrent UTI (N (more content not included)...NormalUk HealthcareComment on above:Result Comment: Electronically Signed By: Asuncion Buchanan MD\.br\Date and Time Signed: 04/22/24 11:55EST\.br\Electronically Co-Signed By: Ailyn Aranda.br\Date and Time Co-Signed: 04/22/24 11:33 ESTSurgical Pathology Reporton [id number] Pathology Report[address] [place] [address]- Surgical Pathology Report Collected Date/Time: 04/07/2024 10:02 EST Pathologist: Fabiano VILLEGAS PhD, Dwight Parra Received Date/Time: 04/07/2024 10:58 EST Dewayne VILLEGAS, Asuncion Buchanan MD, Asuncion [place] 07 Surgical Pathology Report - 04/17/2024 09:36 EST [...] is entirely submitted in one cassette. (DC) DC:MCA Microscopic Description Microscopic examination performed unless gross only specified. This report was transcribed using voice recognition technology and might contain unintended computerized electrical logger errors.[facility] CenterComment on above:Performed By: #### [id number] #### Jarrod [facility] [address], [place] [address]Ybqc OR Intraoperative Recordon [id number] OR Intraoperative RecordMain OR Intraoperative Record IntraOp Document Type FT Summary Primary Physician: Asuncion Buchanan MD Finalized Date/Time: 04/08/24 08:33:19 Pt. Name: MUNIRA CHESTER D.O.B./Sex: 1950 Female Med Rec #: [id number] Physician: Asuncion Buchanan MD Financial #: [id number] Pt. Type: A Room/Bed: [facility] Admit/Disch: 04/07/24 07:20:36 - 04/07/24 12:00:00 Institution: [...] Calabrese Role Performed Anesthesiologist Surgeon - Primary Hvac Specialist - Primary Pharmacy Informatics Specialist Time In 04/07/24 09:46:00 04/07/24 09:46:00 04/07/24 09:46:00 Time Out 04/07/24 10:20:00 04/07/24 10:16:00 04/07/24 10:20:00 Procedure CYSTOSCOPY TURB(.) CYSTOSCOPY TURB(.) CYSTOSCOPY TURB(.) Comments DR. 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 MARIA D kaisermarketing account manager Protocols FT Pre-Care Text: Implements protective measures [...] and tissue Entry 1 Skin Integrity Intact, [place], Warm, & Skin Abnormality No Dry Outcomes [...] Entry 1 Procedure CYST (more content not included)...[facility] Discharge Instructionson [id number] InstructionsDischarge Instructions MUNIRA CHESTER :1950 Visit Date:04/07/2024 [...] spray) fluticasone nasal (fluticasone 0.05 mg/inh Nasal [place]) fluticasone-vilanterol (Breo Ellipta 200 mcg-25 mcg/inh inhalation [...] VILLEGAS, Asuncion London Where: [facility] [address] [place] [address]- New Follow Up Appointments after Discharge Follow Up with Asuncion Buchanan When: Comments: Office to call to schedule your follow up: white removal and voiding trial in 1- 2 days once urine is clear. Follow up in 1-2 weeks for pathology review. Where: [facility], [address] [phone] Business (1) Medications What How Much When Why Instructions Next Dose New ciprofloxacin (Cipro 500 mg Tab) 1 Tablets By Mouth Every 12 hours Duration: 1 Days Start morning of white removal in 1-2 days Pickup at [facility] [address] New oxybutynin (oxybutynin 5 mg Tab) 1 Tablets By Mouth 3 times a day as needed for bladder spasms Pickup at [facility] [address] Unchanged albuterol (ProAir HFA 90 [...] fluticasone nasal (fluticasone 0.05 mg/ inh Nasal [place]) 2 Sprays Nasal Inhalation Every day Unchanged [...] Mouth Every day Unch (more content not included)...[facility] CenterComment on above:Result Comment: Electronically Signed By: Nasrin Stacy RN\.melissa\Date and Time Signed: 04/07/24 10:41 ESTInpatient Patient Summaryon [id number] Patient SummaryInpatient Patient Summary [address] [address] [facility] [place] [facility] Clinical Discharge Instructions PERSON INFORMATION Name: MUNIRA CHESTER [facility]#:[id number] PHYSICIANS Admitting Physician: Asuncion Buchanan MD Attending Physician: Asuncion Buchanan MD PCP: ANDREA GOLDEN DO Discharge Diagnosis: Urethral caruncle; Urethral tumor Comment: PATIENT EDUCATION INFORMATION Instructions: Cook - Post Op INstructions for Bladder Tumor, Bladder Biopsy (CUSTOM) Medication Leaflets: Follow up: With: Address: When: Asuncion Howardbharati [address] [place], [place] [address], [place] [address], [facility] [address] [phone] Business (1) Comments: Office to call to schedule your follow up: white removal and voiding trial in 1- 2 days once urine is clear. Follow up in 1-2 weeks for pathology review. Type Location Start [facility] URO Office Visit [facility] Tariq 04/22/2024 10:45 AM 04/22/2024 11:00 AM Confirmed MEDICATION LIST New Medications [facility] [address], [address] [place], [place] [phone], [phone] ciprofloxacin (Cipro 500 mg Tab) 1 Tablets [...] day. fluticasone nasal (fluticasone 0.05 mg/inh Nasal [place]) 2 Sprays Nasal Inhalation every day. fluticasone [...] Tablets By Mouth every day. Refills: 1. Comment:[facility] CenterMain OR PACU I Recordon [id number] OR PACU I RecordMain OR PACU I Record PACU Phase I Document Type FT Summary Primary Physician: Asuncion Buchanan MD Finalized Date/Time: 04/07/24 12:46:06 Pt. Name: MUNIRA CHESTER/Sex: 1950 Female Med Rec #: [id number] Physician: Asuncion Buchanan MD Financial #: [id number] Pt. Type: A Room/Bed: Admit/Disch: 04/07/24 07:20:36 [...] Signatures Signed By: Pam Harris RN 04/07/24 12:46[facility] CenterMain OR PACU II Recordon [id number] OR PACU II RecordMain OR PACU II Record PACU Phase II Document Type FT Summary Primary Physician: Asuncion Buchanan MD Finalized Date/Time: 04/07/24 12:11:40 Pt. Name: MUNIRA CHESTER /Sex: 1950 Female Med Rec #: [id number] Physician: Asuncion Buchanan MD Financial #: [id number] Pt. Type: A Room/Bed: [facility] Admit/Disch: 04/07/24 07:20:36 - Institution: [...] Signatures Signed By: Nasrin Stacy RN 04/07/24 12:11[facility] CenterMain OR Preoperative Recordon [id number] OR Preoperative RecordMain OR Preoperative Record PreOp Document Type FT Summary Primary Physician: Asuncion Buchanan MD Finalized Date/Time: 04/07/24 10:06:13 Pt. Name: MUNIRA CHESTER /Sex: 1950 Female Med Rec #: [id number] Physician: Asuncion Buchanan MD Financial #: [id number] Pt. Type: A Room/Bed: [place] [address] Admit/Disch: 04/07/24 07:20:36 - Institution: Case Times [...] Signatures Signed By: Mary Madera RN 04/07/24 10:06[facility] CenterOperative Report on [id number] ReportOperative Report Patient: MUNIRA CHESTER Age: 73 [...] electrocautery was usedto achieve hemostasis. An 18 [place] White catheter [...] review.. Impression and Plan Diagnosis Urethral tumor (III12-LR D49.59, Discharge, Medical). Urethral caruncle (ZQX59-QM N36.2, Discharge, Medical). Diagnosis Urethral tumor (QFG43-SS D49.59, Discharge, Medical). Urethral caruncle (TMY06-EC N36.2, Discharge, Medical).[facility] CenterComment on above:Result Comment: Electronically Signed By: Asuncion Buchanan MD\.br\Date and Time Signed: 04/07/24 10:46ESTOutpatient Surgery Discharge Instructionon 19-03-8158Llmhqncyav Surgery Discharge InstructionOutpatient Surgery Discharge Instruction [place] [id number] Patient Discharge Instructions PERSON INFORMATION Name: MUNIRA [...] Follow up: With: Address: When: Asuncion C[address], [address], [facility] [address] [place] [phone] Business (1) Comments: Office to call to schedule your follow up: white removal and voiding trial in 1- 2 days once urine is clear. Follow up in 1-2 weeks for pathology review. Type Location Start [facility] URO Office Visit [facility] Tariq 04/22/2024 10:45 AM 04/22/2024 [...] to serve you. Thank you for choosing [facility] HERE ARE THE MEDICATION CHANGES THAT OCCURRED DURING YOUR HOSPITAL STAY New Medications [facility], [address] [place], [place] [phone], [phone] ciprofloxacin (Cipro 500 mg Tab) 1 Tablets [...] day. fluticasone nasal (fluticasone 0.05 mg/inh Nasal [place]) 2 Sprays Nasal Inhalation every day. fluticasone [...] 1. PATIENT EDUCATION INFORMATION Instructions: [facility] [place] [place] Post-Operative Instructions *Even though there are no visible incisions, the urethra is quite raw on the inside and you need tofollow some instructions to minimize the risks of bleeding and disturbing the area over the next 4 weeks. *The catheter in the (more content not included)...[facility] CenterC Urineon [id number] identified Cx Nom (U)Microbiology PROCEDURE: Urine Culture [R1] SOURCE: U CleanCatch BODY SITE: COLLECTED DATE/TIME: 03/24/2024 07:56 EST RECEIVED DATE/TIME: 03/24/2024 13:41 EST START DATE/TIME: 03/24/2024 13:41 EST FREE TEXT SOURCE: Dewayne VILLEGAS, Asuncion Buchanan MD, Asuncion London FINAL REPORTS Final Report [] Verified Date/Time: 03/26/2024 11:19 EST 3,000 cfu/ml Mixed skin contaminants Performing Locations R1: This test was performed at: [facility], [address] [place] [address], [address] , [place], MeidboImmchkHenry County HospitalComment on above:Performed By: #### [id number] #### [facility] [address] [place] [address]HC Chest 2 Viewson [id number] Chest 2 ViewsExam Date/Time: 03/24/2024 08:16 EST [...] Ka,r in mGy = n/a DAP = n/NormalUk HealthcareBMPon 97-08-1475Zcfak gap [Moles/Vol]12 mmol/LNormal6-16Uk HealthcareComment on above:Performed By: #### [id number] #### [facility] [address], [place] [address]Khyucer [Mass/Vol]9.2 mg/dLNormal8.9-11.1FDayton Children's HospitalComment on above:Performed By: #### [id number] #### [facility] [address], [place] [address]Vrpwnmgx [Moles/Vol]106 mmol/QOsocni413-650GghmolUk HealthcareComment on above:Performed By: #### [id number] #### [facility] [address], [place] [address]YJ2 [Moles/Vol]27 mmol/IPggygi16-33NwwynzUk Healthcare Comment on above:Performed By: #### [id number] #### [facility] [address], [place] [address]Sxcxgbgawk [Mass/Vol]0.7 mg/dLNormal0.5-1.3FDayton Children's HospitalComment on above:Performed By: #### [id number] #### [facility] [address], [place] [address]Fazhkyi [Mass/Vol]96 mg/pTPeeezn00-840IzobrqUk HealthcareComment on above:Performed By: #### [id number] #### [facility] [address], [place] [address]Lmrexqbcl [Moles/Vol]3.5 mmol/LNormal3.5-5.3FDayton Children's HospitalComment on above:Performed By: #### [id number] #### [facility] [address], [place] [address]Irhcsn [Moles/Vol]141 mmol/TLrpdgz944-636BafhraUk HealthcareComment on above:Performed By: #### [id number] #### [facility] [address], [place] [address]Khsh nitrogen [Mass/Vol]14 mg/dLNormal5-21Uk HealthcareComment on above:Performed By: #### [id number] #### [facility] [address] [place] [address]Umfi nitrogen/Creatinine [Mass ratio]20 No OpufnXtcwxe20-29 Uk HealthcareComment on above:Performed By: #### [id number] #### [facility] [address] [place] [address]YZL w/ Auto Diffon 76-24-2630Purcqdael/100 WBC (Bld)0.4 %Normal 0.0-2.0Uk HealthcareComment on above:Performed By: #### [id number] #### [facility] [address] [place] [address]Ubkfdrdvz/Leukocytes Auto (Bld) [Pure # fraction]0.0 E9/LNormal 0.0-0.2FDayton Children's HospitalComment on above:Performed By: #### [id number] #### [facility] [address] [place] [address]Cqlwqwbpulv (Bld) [#/Vol]0.2 E9/LNormal0.0-0.5FDayton Children's HospitalComment on above:Performed By: #### [id number] #### [facility] [address] [place] [address]Vpwonrzmsyf/100 WBC (Bld)2.2 %Normal0.0-8.0Uk HealthcareComment on above:Performed By: #### [id number] #### [facility] [address] [place] [address]Tsmvnyxaldt distribution width (RBC) [Ratio]14.6 %High10.9-14.2 Uk HealthcareComment on above:Performed By: #### [id number] #### Garay [facility] [address], [place] [address]Rafvzamdhr (Bld) [Volume fraction]36.8 %Dpldbv77.0-46.0Uk HealthcareComment on above:Performed By: #### [id number] #### [facility] [address] [place] [address]Axepoodbio (Bld) [Mass/Vol]12.8 g/dCRkmymt93.0-16.0Uk HealthcareComment on above:Performed By: #### [id number] #### [facility] [address] [place] [address]Fdxwxdtrgmv (Bld) [#/Vol]1.3 E9/LNormal1.0-4.0Uk HealthcareComment on above:Performed By: #### [id number] #### [facility] [address] [place] [address] 41462Rhglvxycrxh/100 WBC (Bld)12.1 %Low14.0-50.0Uk HealthcareComment on above:Performed By: #### [id number] #### [facility] [address] [place] [address] 08554QAL (RBC) [Entitic mass]31.7 veWmyviy67.0-34.0Uk HealthcareComment on above:Performed By: #### [id number] #### [facility] [address] [place] [address] 34310ZUTR (RBC) [Mass/Vol]34.7 g/vUTlzeja62.4-36.0Uk HealthcareComment on above:Performed By: #### [id number] #### [facility] [address] [place] [address] 99442CCT (RBC) [Entitic vol]91.5 mDMfwmgk42.0-100.0Uk HealthcareComment on above:Performed By: #### [id number] #### [facility] [address], [place] [address]Crjabyrdk (Bld) [#/Vol]0.9 E9/LNormal0.2-1.0Uk HealthcareComment on above:Performed By: #### [id number] #### [facility] [address] [place] [address] 06543Udxpgkbllcc (Bld) [#/Vol]8.1 E9/LHigh2.0-7.5FDayton Children's HospitalComment on above:Performed By: #### [id number] #### [facility] [address] [place] [address] 96262Almrwnwhtap/100 WBC (Bld)76.6 %High36.0-75.0Uk HealthcareComment on above:Performed By: #### [id number] #### [facility] [address] [place] [address] 25912Fawryztd mean volume (Bld) [Entitic vol]8.3 fLNormal6.4-10.8 Uk HealthcareComment on above:Performed By: #### [id number] #### [facility] [address] [place] [address] 63824Hzqdlskod (Bld) [#/Vol]336.0 E9/UXsmayk695.0-500.0Uk HealthcareComment on above:Performed By: #### [id number] #### [facility] [address] [place] [address] 78712TEL (Bld) [#/Vol]4.0 E12/LLow4.3-5.9[facility] Comment on above:Performed By: #### [id number] #### [facility] [address] [place] [address] 22114AAG corrected for nucl RBC Auto (Bld) [#/Vol]10.6 E9/LNormal 4.0-11.0Uk HealthcareComment on above:Performed By: #### [id number] #### [facility] [address] [place] [address] 00879UITWRRJXOZwfyniw By: SYSTEM SYSTEM on 12-64-4446Ufgtx gap [Moles/Vol]12 mmol/LNormal6 - 16 mEq/LRemisol ChemCalcium [Mass/Vol]9.2 mg/dL Normal8.9 - 11.1 mg/dLRemisol ChemChloride [Moles/Vol]106 mmol/RDccexg279 - 111 mmol/LRemisol ChemCO2 [Moles/Vol]27 mmol/MKedmaa33 - 31 mmol/LRemisol Chem Creatinine [Mass/Vol]0.7 mg/dLNormal0.5 - 1.3 mg/dLRemisol AqvsqNRE01 mL/min/1.73 h3Tenpcj>=59mL/min/1.73 t0Tlxsqlt ChemGlucose [Mass/Vol]96 mg/dL Lqiram95 - 199 mg/dLRemisol ChemPotassium [Moles/Vol]3.5 mmol/LNormal3.5 - 5.3 mmol/LRemisol ChemSodium [Moles/Vol]141 mmol/QEuitlc331 - 145 mmol/LRemisol Chem Urea nitrogen [Mass/Vol]14 mg/dLNormal5 - 21 mg/dLRemisol ChemUrea nitrogen/Creatinine [Mass ratio]20 mg/ilNfpfqx68 - 20Remisol ChemCOAGULATION Ordered By: Crissy Brown on 50-14-1542dBUJ Coag (PPP) [Time]32.8 rLcvtgo14.1 - 36.5 second(s)[facility] Auto CoagComment on above:Interpretive Data: Parameter 15 [...] the same coagulation reagent and instrumentation as [facility]. Currently there are no coagulation studies available worldwide for children to 14 days, andno normal ranges. Heparin therapeutic range (represented by Anti-Factor Xa activity of 0.2 - 0.4 U/mL) corresponds to PTT of 56.6 - 109.0 sec.INR Coag (PPP) [Relative time]1.06 {INR}Invalid Interpretation CodeALLI[facility]HE[facility] [place] Auto CoagComment on above:Interpretive Data: INR results are specifically intended to assess patients stabilized on long-term Anticoagulation therapy suggested INR s Less Intensive Anticoagulation 2.0 3.0 Conventional Range 3.0 4.5PT Coag (PPP) [Time]11.9 sNormal9.4 - 12.5 second(s) [facility] Auto CoagComment on above:Interpretive Data: 15 days [...] the same coagulation reagent and instrumentation as [facility]. Currently there are no coagulation studies available worldwide for children to 14 days, andno normal ranges.HEMATOLOGYOrdered By: SYSTEM SYSTEM on 81-83-8890Agqofowzh/100 WBC (Bld)0.4 %Normal0.0 - 2.0 %Remisol HemeBasophils/Leukocytes Auto (Bld) [Pure # fraction]0.0 E9/LNormal0.0 - 0.2 E9/LRemisol HemeEosinophils (Bld) [#/Vol]0.2 E9/LNormal0.0 - 0.5 E9/LRemisol HemeEosinophils/100 WBC (Bld)2.2 %Normal0.0 - 8.0 %Remisol HemeErythrocyte distribution width (RBC) [Ratio]14.6 %High10.9 - 14.2 %Remisol HemeHematocrit (Bld) [Volume fraction]36.8 %Ombuhj48.0 - 46.0 % Remisol HemeHemoglobin (Bld) [Mass/Vol]12.8 g/aIZxzhzk33.0 - 16.0 gm/dLRemisol HemeLymphocytes (Bld) [#/Vol]1.3 E9/LNormal1.0 - 4.0 E9/LRemisol Heme Lymphocytes/100 WBC (Bld)12.1 %Low14.0 - 50.0 %Remisol HemeMCH (RBC) [Entitic mass]31.7 hcGtuxou57.0 - 34.0 pgRemisol HemeMCHC (RBC) [Mass/Vol]34.7 g/dLNormal 31.4 - 36.0 gm/dLRemisol HemeMCV (RBC) [Entitic vol]91.5 bBKitdub40.0 - 100.0 fL Remisol HemeMonocytes (Bld) [#/Vol]0.9 E9/LNormal0.2 - 1.0 E9/LRemisol Heme Monocytes/100 WBC (Bld)8.7 %Normal4.0 - 14.0 %Remisol HemeNeutrophils (Bld) [#/Vol]8.1 E9/LHigh2.0 - 7.5 E9/LRemisol HemeNeutrophils/100 WBC (Bld)76.6 %High 36.0 - 75.0 %Remisol HemePlatelet mean volume (Bld) [Entitic vol]8.3 fLNormal6.4 - 10.8 fLRemisol HemePlatelets (Bld) [#/Vol]336.0 E9/DVwysty942.0 - 500.0 E9/L Remisol HemeRBC (Bld) [#/Vol]4.0 E12/LLow4.3 - 5.9 E12/LRemisol HemeWBC corrected for nucl RBC Auto (Bld) [#/Vol]10.6 E9/LNormal4.0 - 11.0 E9/LRemisol HemePT & PTTon 25-88-5447zBJO Coag (PPP) [Time]32.8 second(s)Lhahhb81.1-36.5 Uk HealthcareComment on above:Result Comment: Parameter 15 days - [...] the same coagulation reagent and instrumentation as [facility]. Currently there are no coagulation studies available worldwide for children to 14 days, andno normal ranges. Heparin therapeutic range (represented by Anti-Factor Xa activity of 0.2 - 0.4 U/mL) corresponds to PTT of 56.6 - 109.0 sec.Performed By: #### [id number] #### Jarrod [facility] [address], [place] [address]DGT Coag (PPP) [Relative time]1.06 {INR}Invalid Interpretation CodeFisher [facility] Medical CenterComment on above:Result Comment: INR results are specifically intended to assess patients stabilized on long-term Anticoagulation therapy suggested INR???s ???Less Intensive Anticoagulation??? 2.0 ??? 3.0 Conventional Range 3.0 ??? 4.5Performed By: #### [id number] #### Garay [facility] [address], [place] [address]GB Coag (PPP) [Time]11.9 second(s)Normal9.4-12.5Fisher [facility] Medical CenterComment on above:Result Comment: 15 days [...] the same coagulation reagent and instrumentation as [facility]. Currently there are no coagulation studies available worldwide for children to 14 days, andno normal ranges.Performed By: #### [id number] #### [facility] [address], [place] [address]YN with Cult Rflxon 45-58-8323Mzwfaafi Auto Ql (U)TraceNormal TraceUk HealthcareComment on above:Performed By: #### [id number] #### [facility] [address], [place] [address]Fohwrdzup Ql (U)NegativeNormalNegativeUk HealthcareComment on above:Performed By: #### [id number] #### [facility] [address], [place] [address]Moyfjec (U)TurbidAbnormalClearFisher [facility] Comment on above:Performed By: #### [id number] #### [facility] [address], [place] [address]Emucz (U)YellowNormalYellowUk HealthcareComment on above:Result Comment: Microscopic readings are only performed on those samples that meet specific criteria set forth by [facility].Performed By: #### [id number] #### [facility] [address], [place] [address]Xwfdrxhczi cells.squamous Auto (Urine sed) [#/Area]0-2Invalid Interpretation CodeUk HealthcareComment on above:Performed By: #### [id number] #### [facility] [address], [place] [address]Ptxpsqb Ql (U)NegativeNormalNegative[facility] Comment on above:Performed By: #### [id number] #### [facility] [address], [place] [address]Kochlxbgvw Auto test strip (U) [Mass/Vol]NegativeNormalNegative Uk HealthcareComment on above:Performed By: #### [id number] #### Garay [facility] [address], [place] [address]Egvjxuv casts LM Ql (Urine sed)5-2Ywtxpm4-5MchxosDayton Children's HospitalComment on above:Performed By: #### [id number] #### Garay [facility] [address], [place] [address]Knwboji Auto test strip Ql (U)NegativeNormalNegativeUk HealthcareComment on above:Performed By: #### [id number] #### Garay [facility] [address], [place] [address]Cvsvqbcuv esterase Auto test strip Ql (U)25 Rosemarie/uLNormal NegativeUk HealthcareComment on above:Performed By: #### [id number] #### Garay [facility] [address], [place] [address]Spsky Auto Ql (U)3+ CD:[id number] Titus Medical CenterComment on above:Performed By: #### [id number] #### Garay [facility] [address], [place] [address]Wgmarqm Auto test strip Ql (U)NegativeNormalNegativeUk HealthcareComment on above:Performed By: #### [id number] #### Garay [facility] [address], [place] [address]dT (U)5.5 [pH]Invalid Interpretation Code5.0-9.0Uk HealthcareComment on above:Performed By: #### [id number] #### Garay [facility] [address], [place] [address]Hvepxcu Ql (U)1+ mg/dLAbnormalNegRegency Hospital Cleveland EastComment on above:Performed By: #### [id number] #### Garay [facility] [address], [place] [address]JMQ Ql (U)55-95Vijvbets8-2DssqryDayton Children's HospitalComment on above:Performed By: #### [id number] #### Jarrod [facility] [address], [place] [address]Bwgyveje gravity (U) [Rel density]1.039Invalid Interpretation Code1.005-1.030Uk HealthcareComment on above:Performed By: #### [id number] #### Garay [facility] [address], [place] [address]Zncostujevnl (U) [Mass/Vol]NegativeNormalNegativeUk HealthcareComment on above:Performed By: #### [id number] #### [facility] [address] [place] [address]HYU Auto (Urine sed) [#/Area]6-35Creejyrb5-9Lmqfwo [facility] Medical CenterComment on above:Performed By: #### [id number] #### [facility] [address] [place] [address]Zziu of Urine collection methodClean CatchNormalUk HealthcareComment on above:Performed By: #### [id number] #### [facility] [address] [place] [address] 12163LPUDWRFRSSVksgwxa By: SYSTEM SYSTEM on 56-76-9317Ultvqucs Auto Ql (U)Trace /HPFNormalTrace/HPFALL[facility]HE[facility] [place] UA Auto SSBilirubin Ql (U)NegativeNormal Negativemg/dLALLIANCEHEALTH [facility]WE[facility] [place] [place] UA Auto SSClarity (U)Turbid *ABN* (03/24/24 7:56 AM)Invalid Interpretation CodeClearFCURAHEALTH [facility] [place] Auto SSColor (U)Yellow 1 (03/24/24 7:56 AM)NormalYellowALLIANCEHEALTH [facility]WEST [facility] [place] UA Auto SSComment on above:Interpretive Data: Microscopic readings are only performed on those samples that meet specific criteria set forth by [facility].Epithelial cells.squamous Auto (Urine sed) [#/Area]0-2 graded/HPFInvalid Interpretation CodeALLIANCEHEALTH [facility]WEST – [place] [place] UA Auto SSGlucose Ql (U)NegativeNormalNegativemg/dLALLIANCEHEALTH [facility]WEST [facility] [place] UA Auto SS Hemoglobin Auto test strip (U) [Mass/Vol]NegativeNormalNegativemg/dLALLIANCEHEALTH [facility]WE[facility] [place] [place] UA Auto SSHyaline casts LM Ql (Urine sed)0-3 graded/LPFNormal0-3graded/LPFFTMC UA Auto SSKetones Auto test strip Ql (U)NegativeNormalNegativemg/dLFT UA Auto SS Leukocyte esterase Auto test strip Ql (U)25 Rosemarie/uL Rosemarie/uLNormalNegativeLeu/uL [facility] UA Auto SSMucus Auto Ql (U)3+ graded/LPFInvalid Interpretation Code Negativegraded/LPFFTMC UA Auto SSNitrite Auto test strip Ql (U)NegativeNormal Negativemg/dLALLIANCEHEALTH [facility]WEST – [place] [facility] Auto SSpH (U)5.5 *NA* (03/24/24 7:56 AM)Invalid Interpretation Code5.0 - 9.0[facility]A Auto SSProtein Ql (U)1+ mg/dLInvalid Interpretation CodeNegativemg/dLALLIANCEHEALTH [facility]WEST [facility] [place] UA Auto SSRBC Ql (U)21- 30 graded/HPFInvalid Interpretation Code0-3graded/HPFALLIANCEHEALTH MIDWEST [facility] [place] U[facility] Auto SSSpecific gravity (U) [Rel density]1.039 *NA* (03/24/24 7:56 AM)Invalid Interpretation Code1.005 - 1.030[facility] UA Auto SS Urobilinogen (U) [Mass/Vol]NegativeNormalNegativemg/dLALLIANCEHEALTH [facility]WEST [facility] [place] [facility] Auto SSWBC Auto (Urine sed) [#/Area]6-15 graded/HPFInvalid Interpretation Code0-5graded/HPFALLIANCEHEALTH MIDWEST – [place] UA Auto SSURINALYSISOrdered By: Lorin Marks on 80-23-5661ER Spec DescClean Catch (03/24/24 7:56 AM)NormalALLIANCEHEALTH MIDWEST – [place] [place] UA Auto SSeGFRon 97-32-5696aINL93 mL/min/1.73 m2 Normal>=59Uk HealthcareComment on above:Performed By: #### [id number] #### Jarrod [facility] [address], [place] [address]Fvjhg Cytology ([facility])on 66-43-2249Vgbfysfgyce exam Cytology (U) [Interp]Diagnosis InfoInvalid Interpretation [facility] Comment on above:Result Comment: A:Urine,Urine:Post Cystoscopy Void Interpretation - A few clusters of urothelial cells with mild atypia; as post cystoscopy voided urine, low grade papillary urothelial neoplasm can not be excluded. Clinical correlation is indicated. Adequate cellularity for evaluation. CPT 42648 MicroScopic Description - Adequacy - Gross Description Site ID:A color Yellow fixative Alcohol Specimen designated Urine received in alcohol preservative and labeled with the patient???s name, consists of 90ml clear yellow fluid. Electronically signed by : on: 02/27/2024 13:00:36Performed By: #### [id number] #### [facility] [address] [place] [address]Wyklwobyy Patient Summaryon 96-28-1763Blmwhlcue Patient Summary Inpatient Patient Summary [address] [address] Clinical Summary Person Information Name: MUNIRA CHESTER Age: 73 Years : 1950 Sex: Female PCP: ANDREA GOLDEN DO Marital Status: Race: White Ethnicity: Non- or Language: Estonian Visit Id: Visit Reason: MIXED INCONTINENCE Speciality: Acuity: Enc Type: Outpatient Med Service: Surgery Arrival: 02/24/2024 09:03:30 Discharge: Dispo Type: Address: [address] [place] [phone] Provider Notes: Diagnosis: Intrinsic sphincter deficiency (ISD); [...] day. fluticasone nasal (fluticasone 0.05 mg/inh Nasal [place]) 2 Sprays Nasal Inhalation every day. fluticasone [...] Education Information: EU - Cystoscopy Discharge Instructions (CUSTOM)[facility] Main OR Intraoperative Recordon 76-83-0808Orkm OR Intraoperative RecordMain OR Intraoperative Record IntraOp Document Type FTURO Summary Primary Physician: Asuncion Buchanan MD Finalized Date/Time: 02/24/24 10:21:12 Pt. Name: MUNIRA CHESTER/Sex: 1950 Female Med Rec #: [id number] Physician: Asuncion Buchanan MD Financial #: [id number] Pt. Type: O Room/Bed: / Admit/Disch: 02/24/24 [...] Kimberly A Role Performed Surgeon - Primary Hvac Specialist - Primary Scrub - Primary Time In [...] Libby Garcia 02/24/24 10:21 Libby Garcia 02/24/24 10:21[facility] CenterMain OR Preoperative Recordon 24-07-0990Igdh OR Preoperative RecordMain OR Preoperative Record Holding Area Document Type FTURO Summary Primary Physician: Asuncion Buchanan MD Finalized Date/Time: 02/24/24 10:08:50 Pt. Name: MUNIRA CHESTER/Sex: 1950 Female Med Rec #: [id number] Physician: Asuncion Buchanan MD Financial #: [id number] Pt. Type: O Room/Bed: / Admit/Disch: 02/24/24 [...] Complaints of Pain: No Skin Integrity Intact, [place], Warm, & Dry Vitals - EU Blood Pressure 151/84 Pulse 73 bpm Respirations 18 br/min SPO2 98 % Additional None RN Reviewed Yes Specimens Collected Last Modified By: Libby Garcia 02/24/24 10:08:49 Finalized By: Libby Garcia Document Signatures Signed By: Meeta Valenzuela LPN 02/24/24 09:32 Libby Garcia 02/24/24 10:08[facility] CenterOperative Reporton 36-69-4328Jaekkihju ReportOperative Report Patient: MUNIRA CHESTER Age: 73 years Sex: Female : 1950 Associated Diagnoses: None Author: Asuncion Buchanan MD Procedure Operative Information Details: Date/ Time: 02/24/2024 10:21:00. Pre-Op Dx: Mixed Urinary Incontinence - N39.46. 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 Anesthesia Type: Local. Procedure: [...] -Will schedule Bulkamid under anesthesia once biopsy results..[facility] CenterComment on above:Result Comment: Electronically Signed By: Asuncion Buchanan MD\.br\Date and Time Signed: 02/24/24 10:26ESTOutpatient Surgery Discharge Instructionon 42-91-9690Mtextjeqne Surgery Discharge Instruction Outpatient Surgery Discharge Instruction [place] [id number] Patient Discharge Instructions PERSON INFORMATION Name: MUNIRA [...] you have a fever over 100 degrees. CATHERINE Mcginnis ROSEMARY, have received the attached patient education materials/instructions and have verbalized understanding: May we do a follow up call? Yes No I was present when discharge instructions were given Patient Signature Date Clinican/Nurse Signature Date You may receive a survey from [employer] asking you to rate your care experience. Your feedback is important and will help us understand what we do well and how we can improve the quality of care we provide to you, your loved ones and our community. It???s an honor to serve you. Thank you [facility] choosing [facility] CenterUrine Cytology ([facility])on 58-73-6893FG Method of ExtractionPost Cysto VoidNoHenry County HospitalComment on above:Performed By: #### [id number] #### [facility] [address] [facility], [place] [address]PQ Number of Abct7Jterqnp Interpretation [facility] HospitalComment on above:Performed By: #### [id number] #### [facility] [address] [facility], [place] [id number] SpecimenUrineNoHenry County HospitalComment on above:Performed By: #### [id number] #### [facility] [address] [facility], [place] [address]TY Type of ServiceTechnical OnlyLouis Stokes [facility] VA Medical CenterComment on above:Performed By: #### [id number] #### [facility] [address] [facility], [place] [address]Putjwmd Office/Clinic Noteon 36-99-1519Fjlpoqy Office/Clinic NoteUrology Office/Clinic Note Chief Complaint 1 [...] Macrobid after sex consiste (more content not included)...[facility] CenterComment on above:Result Comment: Electronically Signed By: Asuncion Buchanan MD.br\Date and Time Signed: 02/05/24 12:35EST\.br\Electronically Co-Signed By: Valdes, Aide E\.br\Date and Time Co-Signed: 02/05/24 11:50 [facility] Urineon 37-70-6107Sacedbmz identified Cx Nom (U)Microbiology PROCEDURE: Urine Culture [R1] SOURCE: U CleanCatch BODY SITE: COLLECTED DATE/TIME: 12/27/2023 10:45 EDT RECEIVED DATE/TIME: 12/27/2023 18:04 EDT START DATE/TIME: 12/27/2023 18:04 EDT FREE TEXT SOURCE: Dewayne VILLEGAS, Asuncion Buchanan MD, Asuncion London FINAL REPORTS Final Report [] Verified Date/Time: 12/30/2023 11:59 EDT 400 cfu/ml Mixed skin contaminants Performing Locations R1: This test was performed at: [facility], [address] [place] [address], [address] [place] [address], VkcvgmHwkpqqLouis Stokes [facility] VA Medical CenterComment on above:Performed By: #### [id number] #### [facility] [address] [place] [address]OMJDbm 45-19-3191BKBVLtfpwi Visit (GGENMN) MUNIRA CHESTER ([id number]) 1950 F Date Time Provider Department 12/27/23 4:30 PM KASEY FALLON GGSTERLINGMN During your visit today, we recorded the [...] balloon enteroscopy Kasey Fallon MD 12/27/2023 Staff Score Caller [facility] [place] [facility] , REFERRING PROVIDER: Jones Ace [address] [facility] [id number] REASON FOR REFERRAL: Small bowel stricture HISTORY: [...] Inhale 1 Inhalation as instructed once daily. Vfblmiqgnm-Abhzlyzsmukgn-Bcew (FIORICET) 50-300-40 mg cap Take by mouth. EPINEPHrine (EPIPEN) 0.3 mg/0.3 mL auto-injector Inject 0.3 mg intramuscularly as needed. fluticasone (FLONASE) 50 mcg/actuation nasal spray Use 1 [place] in each nostril once daily. atorvastatin (LIPITOR) [...] DEGEN ESOPHAGEAL REFLUX HYPERTENSION (more content not included)...NormalTrumbull Memorial Hospital on 41-71-0012LCNVNrzoxlfua (GASTA5) MUNIRA CHESTER ([id number]) 1950 F Date Time Provider Department 12/25/23 KASEY FALLONA5 During your visit today, we recorded the following information about you: Hollis Mckeon RN 12/25/2023 2:58 PM Signed Pt called and left VM, said had small bowel xray done, saw results and now questioning if still needs appt with Dr. Fallon, scheduled for 12/26, asking for return call to clarify if still needs to come or can cx. Call cell phone at [phone]. MARIA D Hilliard Ann, RN 12/26/2023 9:10 [...] Fully Assessed Reason for Visit: Patient Question [9237] Prescriptions as of 12/26/2023 - fluticasone-vilanterol (BREO ELLIPTA) 100-25 mcg/dose inhaler Inhale 1 Inhalation as instructed once daily. - Ejaicswhtb-Kwnvnqzcnngxs-Ltri (FIORICET) 50-300-40 mg cap Take by mouth. - EPINEPHrine (EPIPEN) 0.3 mg/0.3 mL auto-injector Inject 0.3 mg intramuscularly as needed. - fluticasone (FLONASE) 50 mcg/actuation nasal spray Use 1 [place] in each nostril once daily. - atorvastatin [...] [M*04/11/2016 Encounter Status:Closed by HOLLIS MCKEON on 12/25/23NoL[facility] Small bowel Views W contrast Rhys 79-30-9560LPAYBOZQNY: Slow transit. No dilated small bowel. No visualized stricture. [employer] Assistant Manager: PSCB Transcribe Date/Time: Dec 24 2023 [...] Contrast: ORAL: 855 ml of EZPAQUE RESULT: Sluice Tender radiograph shows no dilated bowel loops. Right upper quadrant surgical clips. Contrast was ingested orally. By 60 minutes, contrast fills normal caliber and fold pattern jejunum and proximal and mid ileum. Subsequently there was very slow transit. Study was terminated at 240 minutes with small amount of contrast in colon. No small bowel dilation or focal area of narrowing identified. DIVISION OF RADIOLOGYProvider, [facility] [place] - 12/24/2023 * * *Final Report* * [...] Contrast: ORAL: 855 ml of EZPAQUE RESULT: Sluice Tender radiograph shows no dilated bowel loops. Right [...] No dilated small bowel. No visualized stricture. [employer] Assistant Manager: [facility] Transcribe Date/Time: Dec 24 2023 3:37P Dictated by : HAYDEN REEVES MD This examination was interpreted and the report reviewed and electronically signed by: HAYDEN REEVES MD on Dec 24 2023 3:40PM EST [facility] HospitalRadiology Study observation (narrative)[facility] HospitalRF Small bowel Views W contrast POOrdered By: [facility] Provider on 58-95-4316Rgnztjssd Clinic XR SMALL BOWEL SERIESon 34-82-1599XS SMALL BOWEL SERIES* * *Final Report* * [...] Contrast: ORAL: 855 ml of EZPAQUE RESULT: Sluice Tender radiograph shows no dilated bowel loops. Right [...] No dilated small bowel. No visualized stricture. [employer] Assistant Manager: [facility] Transcribe Date/Time: Dec 24 2023 3:37P Dictated by : HAYDEN REEVES MD This examination was interpreted and the report reviewed and electronically signed by: HAYDEN REEVES MD on Dec 24 2023 3:40PM EST [id number] HospitalPNelysia 43-90-0124EJLY Telephone (GASTA5) CATHERINEMUNIRA ([id number]) 1950 F Date Time Provider Department 12/04/23 [...] 1 Inhalation as instructed once daily. - Ofwbbhjzot-Xniongtdfelep-Hscd (FIORICET) 50-300-40 mg cap Take by mouth. - EPINEPHrine (EPIPEN) 0.3 mg/0.3 mL auto-injector Inject 0.3 mg intramuscularly as needed. - fluticasone (FLONASE) 50 mcg/actuation nasal spray Use 1 [place] in each nostril once daily. - atorvastatin [...] [M*04/11/2016 Encounter Status:Closed by HOLLIS MCKEON on 12/04/23[facility] Basophils Auto (Bld) [#/Vol]on 10-63-2022Rraamklcp (Bld) [#/Vol]Automated basophil count0.0-0.1FCleveland Clinic Avon HospitalBasophils/100 WBC Auto (Bld)on 35-07-0066Aqqogpesp/100 WBC (Bld)Automated basophil %0.2-2.0[facility] CenterEosinophils/100 WBC Auto (Bld)on 11-22-2023 Eosinophils/100 WBC (Bld)Automated eosinophil %High0.9-7.0[facility] Medical CenterErythrocyte distribution width Auto (RBC) [Ratio]on 11-22-2023 Erythrocyte distribution width (RBC) [Ratio]Erythrocyte distribution width [Ratio] by Automated count11.0-15.0[facility] Medical CenterEstimated glomerular filtration rate (GFR) non- Americanon 94-36-4797BYP/1.73 sq M.predicted among non-blacks MDRD (S/P/Bld) [Vol rate/Area]Estimated glomerular filtration rate (GFR) non->=60[facility] Globulin Calc (S) [Mass/Vol]on 49-10-2908Sseohcwk (S) [Mass/Vol]Serum globulin measurement by calculation (mass/volume)[facility] Hematocrit Auto (Bld) [Volume fraction]on 73-19-7961Lqlwohtsnz (Bld) [Volume fraction]Hematocrit [Volume Fraction] of Blood by Automated count36.0-48.[address] [facility] Medical CenterHemoglobin [Mass/volume] in Bloodon 11-22-2023 Hemoglobin (Bld) [Mass/Vol]Hemoglobin [Mass/volume] in Blood12.0-16.0[facility] CenterIron binding capacity [Mass/volume] in Serum or Plasmaon 81-89-2270Ohdw binding capacity [Mass/Vol]Iron binding capacity [Mass/volume] in Serum or Xufebr268.0-450.0[facility] Medical CenterIron saturation [Mass Fraction] in Serum or Plasmaon 55-00-8765Jywd saturation [Mass fraction] Iron saturation [Mass Fraction] in Serum or PlasmaUniversity Hospitals St. John Medical CenterLaboratory - Chemistry and Chemistry - challengeon 08-49-9163Rmneqyv [Mass/Vol]3.7 g/dL3.4-5.0[facility] Medical CenterALP [Catalytic activity/Vol]80 U/T47-457BxspimwygUniversity Hospitals St. John Medical CenterALT [Catalytic activity/Vol]26 U/R78-54IeghpddjyUniversity Hospitals St. John Medical CenterAST [Catalytic activity/Vol]21 U/V40-77BawbsesvcUniversity Hospitals St. John Medical CenterBilirubin [Mass/Vol]0.5 mg/dL0.2-1.0[facility] Medical CenterCalcium [Mass/Vol]9.0 mg/dL 8.5-10.1FCleveland Clinic Avon HospitalChloride [Moles/Vol]104 mmol/L98-[address] [facility] Medical CenterCO2 [Moles/Vol]29.7 mmol/L21.0-32.0[facility] CenterCreatinine [Mass/Vol]0.85 mg/dL0.55-1.02[facility] Medical CenterFerritin [Mass/Vol]30.0 ng/mL8.0-252.0[facility] Medical CenterGFR/1.73 sq M.predicted MDRD (S/P/Bld) [Vol rate/Area] mL/min/{1.73_m2}>=60[facility] Medical CenterGlucose [Mass/Vol]103 mg/dL 74-106[facility] Medical CenterIron [Mass/Vol]71.0 ug/dL50.0-170.[address] [facility] CenterPotassium [Moles/Vol]3.6 mmol/L3.5-5.1FCleveland Clinic Avon HospitalProtein [Mass/Vol]6.6 g/dL6.4-8.2FLicking Memorial Hospitalodium [Moles/Vol]143 mmol/X080-606BpvdzotvuUniversity Hospitals St. John Medical CenterUrea nitrogen [Mass/Vol]16.0 mg/dL7.0-18.0[facility] Medical CenterUrea nitrogen/Creatinine [Mass ratio]18.8 mg/mgUniversity Hospitals St. John Medical CenterLaboratory - Hematology and Cell countson 61-74-2863Wtsdmpxa granulocytes/100 WBC (Bld)0.3 %0.0-0.5FC[facility] Leukocytes [#/volume] corrected for nucleated erythrocytes in Blood by Automated counon 67-60-6070JPW corrected for nucl RBC Auto (Bld) [#/Vol]Leukocytes [#/volume] corrected for nucleated erythrocytes in Blood by Automated coun 4.0-11.0[facility] Medical CenterLymphocytes Auto (Bld) [#/Vol]on 72-86-2731Lvaqgajxcwp (Bld) [#/Vol]Lymphocytes [#/volume] in Blood by Automated count1.2-3.8[facility] Medical CenterLymphocytes/100 WBC Auto (Bld)on 51-42-8024Ftyjhstcfio/100 WBC (Bld)Lymphocytes/100 leukocytes in Blood by Automated count20.5-60.0[facility] Auto (RBC) [Entitic mass]on 03-74-1982TNS (RBC) [Entitic mass]MCH [Entitic mass] by Automated count 26.7-34.0[facility] Medical CenterMCHC Auto (RBC) [Mass/Vol]on 23-88-9240HOTD (RBC) [Mass/Vol]MCHC [Mass/volume] by Automated count29.9-35.[address] [facility] Medical CenterMCV Auto (RBC) [Entitic vol]on 37-73-1896EEW (RBC) [Entitic vol]MCV [Entitic volume] by Automated count81.0-99.0[facility] Medical CenterMonocytes Auto (Bld) [#/Vol]on 27-94-4178Akstpsvpj (Bld) [#/Vol]Automated blood monocyte count0.3-0.8[facility] Monocytes/100 WBC Auto (Bld)on 97-68-3549Xyidjveek/100 WBC (Bld)Automated monocyte %1.7-12.0[facility] Medical CenterNeutrophils Auto (Bld) [#/Vol]on 23-42-0654Rzadvvyqucj (Bld) [#/Vol]Neutrophils [#/volume] in Blood by Automated count1.4-6.5FCleveland Clinic Avon HospitalNeutrophils/100 WBC Auto (Bld)on 44-03-2638Fuplofoqfze/100 WBC (Bld)Automated neutrophil %43.0-75.[address] [facility] Medical CenterNo Panel Informationon 43-08-4881Xxudtvrzkrg # (Auto)0.6 10 3/uL0.0-0.7FCleveland Clinic Avon HospitalImmature Granulocyte # (Auto)0.02 10 3/uL0.00-0.03[facility] Medical CenterPlatelet mean volume Auto (Bld) [Entitic vol]on 92-30-8334Fqamdvgx mean volume (Bld) [Entitic vol] Platelet mean volume [Entitic volume] in Blood by Automated count9.5-13.[address] John Medical CenterPlatelets Auto (Bld) [#/Vol]on 11-22-2023 Platelets (Bld) [#/Vol]Platelets [#/volume] in Blood by Automated nuqgd876-[address] [facility] Medical CenterRBC Auto (Bld) [#/Vol]on 74-19-8457OKB (Bld) [#/Vol]Erythrocytes [#/volume] in Blood by Automated count4.20-5.40[facility] Hospitalerum or plasma albumin/globulin mass ratioon 11-22-2023 Albumin/Globulin [Mass ratio]Serum or plasma albumin/globulin mass ratio [facility] Hospitalerum or plasma anion gap determinationon 86-97-0405Ginau gap [Moles/Vol]Serum or plasma anion gap determinationUniversity Hospitals St. John Medical CenterCNPNon 11-50-9475CRLCGudfaoqac (GASTA5) MUNIRA CHESTER ([id number]) 1950 F Date Time Provider Department 10/31/23 [...] Fully Assessed Reason for Visit: Patient Question [8277] Prescriptions as of 10/31/2023 - fluticasone-vilanterol (BREO ELLIPTA) 100-25 mcg/dose inhaler Inhale 1 Inhalation as instructed once daily. - Fouamknwlq-Xgvxlqpieygfn-Lprm (FIORICET) 50-300-40 mg cap Take by mouth. - EPINEPHrine (EPIPEN) 0.3 mg/0.3 mL auto-injector Inject 0.3 mg intramuscularly as needed. - fluticasone (FLONASE) 50 mcg/actuation nasal spray Use 1 [place] in each nostril once daily. - atorvastatin [...] [M*04/11/2016 Encounter Status:Closed by REHANA HOANG on 10/31/23NoChillicothe HospitalNehemias 53-44-6849NLXHGsmajpfyy (GASTA5) MUNIRA CHESTER ([id number]) 1950 F Date Time Provider Department 10/16/23 [facility] PROVIDER GASTA5 During your visit today, we recorded the following information about you: Hollis Mckeon, RN 10/16/2023 1:52 PM Signed Faxed referral received on 10/15/23 for pt sent from Dr. Ace from [facility] to attention Dr. Fallon, for pt [...] 1 Inhalation as instructed once daily. - Lnenbsgvje-Xrshsegopaqbf-Zxbx (FIORICET) 50-300-40 mg cap Take by mouth. - EPINEPHrine (EPIPEN) 0.3 mg/0.3 mL auto-injector Inject 0.3 mg intramuscularly as needed. - fluticasone (FLONASE) 50 mcg/actuation nasal spray Use 1 [place] in each nostril once daily. - atorvastatin [...] [M*04/11/2016 Encounter Status:Closed by HOLLIS MCKEON on 10/16/23[facility] Physician Referralon 32-48-5944Wxlejwnhr Referral [id number]#1.00TIFSt. Francis HospitalTelephoneon [id number] Munira Chester 1950 F Date Provider Department Center 09/05/2023 PHILIP BERMEO [facility] No family history on fileNormalUniversity of [facility] HillcrestTelephoneon [id number] Lanny Chestermary 1950 F Date Provider Department Center 08/28/2023 [facility] No family history on fileNormalUniversity of Bay[facility] Center – HillcrestPhysician Referralon 63-18-9074Ljbycqfxp Referral [id number]#1.00TIFSt. Francis HospitalAmbulatory Visit Summaryon 06-23-5251Gxhmtmbjxw Visit Summary MUNIRA CHESTER :1950 Visit Date:08/15/2023 [...] Tab) fluticasone nasal (fluticasone 0.05 mg/inh Nasal [place]) fluticasone/umeclidinium/vilanterol (Trelegy Ellipta) iron polysaccharide (Ferrex-150) levothyroxine [...] VILLEGAS, Asuncion [place] [facility]/Clinic Noteon 08-15-2023 Gastroenterology Office/Clinic NoteChief Complaint [...] History of Present Illness I have reviewed [facility] staff note, most recent labs and imaging, [...] EGD - Esophagogastroduodenoscopy (01/16/2015), (more content not included)...[facility] CenterComment on above:Result Comment: Electronically Signed By: Tho [...] Bravo Hurst DO Transcribed by: SAHIL Technologist: [facility]ENTERRad[facility], Radiologist, MD - 07/25/2023 Exam Date/Time: 07/23/2023 [...] MAXILLOFACIAL W/O CONTRASTOrdered By: Radiologist Radiology on 87-25-4927LGOA [employer] Work Phone: cT Maxillofacial w/o Contraston 63-67-4090KW Maxillofacial w/o ContrastExam Date/Time: 07/23/2023 07:58 EDT [...] Bravo Hurst DO Transcribed by: SAHIL Technologist: ElsyHenry County HospitalCT MAXILLOFACIAL W/O CONTRASTon 39-33-7812Vtxomdaut Study observation (narrative) NOM HealthcareConsent for Treatmenton 12-33-8722Wflwuvx for Treatment [id number]#1.00TIFSt. Francis HospitalConsent for Procedure/Surgeryon 84-78-6557Asqofzh for Procedure/Surgery [id number]#1.00TIFSt. Francis HospitalNurse Consultation Noteon 30-43-4223Mujwb Consultation NoteAssessment/Plan Patient tolerated the capsule and [...] Every other day fluticasone 0.05 mg/inh Nasal [place], 2 spray(s), Nasal, Daily Fosamax 70 mg [...] virus vaccine, inactivated 12/31/2022 Recorded SARS-CoV-2 (COVID-19) mRNAMUL.ORD![id number] 12/22/2021 Recorded influenza virus vaccine, inactivated 12/18/2021 [...] 01/04/2016 Recorded influenza virus vaccine, inactivated 01/04/2016 [facility]XR [facility] Viewon 37-35-9150LF Abdomen 1 ViewExam Date/Time: 07/05/2023 12:19 EDT [...] in mGy = na DAP = naNormalFisher [facility] Medical CenterConsent for Treatmenton 07-05-2023 Consent for [id number]#1.00TIFFNormal Jarrod [facility] CenterNurse Consultation Noteon 52-66-2344Hgkxr Consultation NoteAssessment/Plan Patient tolerated swallowing the capsule. [...] Every other day fluticasone 0.05 mg/inh Nasal [place], 2 spray(s), Nasal, Daily Fosamax 70 mg [...] virus vaccine, inactivated 12/31/2022 Recorded SARS-CoV-2 (COVID-19) mRNAMUL.ORD![id number] 12/22/2021 Recorded influenza virus vaccine, inactivated 12/18/2021 [...] 01/04/2016 Recorded influenza virus vaccine, inactivated 01/04/2016 RecordedNoHenry County HospitalPhysician Orderon 00-75-1591Yvptxzvru Order [id number]#1.00TIFFLouis Stokes Cleveland VA Medical CenterAlbumin [Mass/volume] in Serum or Plasmaon 18-32-6301Gohoesn [Mass/Vol]3.6 g/dL2.9-4.4FCleveland Clinic Avon HospitalIgA [Mass/volume] in Serum or Plasmaon 87-37-4411CnI [Mass/Vol]83 mg/uA19-548LahkkgornUniversity Hospitals St. John Medical Center IgE [Units/volume] in Serum or Plasmaon 56-91-4149LqX Qn119 [IU]/mL6-[address] [facility] Medical CenterComment on above:Performed at: - [facility] [id number] Director: Chay Stewart MD, Phone: [phone] [Mass/volume] in Serum or Plasmaon 33-10-3574QoU [Mass/Vol]509 mg/uR982-1749PytjoqpbxUniversity Hospitals St. John Medical CenterIgM [Mass/volume] in Serum or Plasmaon 33-64-1815MkU [Mass/Vol]51 mg/hL74-223LpoktgkdfUniversity Hospitals St. John Medical CenterImmunoglobulin light chains.kappa.free [Mass/volume] in Serumon 68-62-1209Jnnooxrcarvpip light chains.kappa.free (S) [Mass/Vol]12.1 mg/L3.3-19.[address] [facility] Medical CenterImmunoglobulin light chains.kappa.free/Immunoglobulin light chains.lambda.free [Yony 07-02-2023 Immunoglobulin light chains.kappa.free/Immunoglobulin light chains.lambda.free (S) [Mass ratio]1.130.26-1.65[facility] Medical CenterComment on above: Performed at: [facility] [id number] Director: Bj Hair PhD, Phone: [phone] light chains.lambda.free [Mass/volume] in Serum or Plasmaon 95-08-6196Jwbfmnpnkljnvf light chains.lambda.free [Mass/Vol]10.7 mg/L5.7-26.3FCleveland Clinic Avon HospitalNo Panel Informationon 71-97-9320Ersabze Electrophoresis M-SpikeNot Observed g/dLNot ObservedUniversity Hospitals St. John Medical CenterProtein Electrophoresis NoteComment.[facility] Medical CenterComment on above: Protein electrophoresis scan will follow via computer,mail, or care process manager delivery. Protein [Mass/volume] in Serum or Plasmaon 61-98-6394Ozlocbt [Mass/Vol]6.1 g/dL 6.0-8.5FLicking Memorial Hospitalerum globulin measurement (mass/volume) on 54-21-6800Aovplxyd (S) [Mass/Vol]2.5 g/dL2.2-3.9[facility] Hospitalerum or plasma albumin/globulin mass ratioon 03-65-0564Iowzhcc/Globulin [Mass ratio]1.5 {ratio}0.7-1.7FLicking Memorial Hospitalerum or plasma alpha 1 globulin measurement by electrophoresis (mass/volume)on 15-41-6560Bfyyq 1 globulin Elph [Mass/Vol]0.2 g/dL0.0-0.4FLicking Memorial Hospitalerum or plasma alpha 2 globulin measurement by electrophoresis (mass/volume)on 22-24-5831Ruqgt 2 globulin Elph [Mass/Vol]0.9 g/dL0.4-1.0[facility] Hospitalerum or plasma beta globulin measurement by electrophoresis (mass/volume)on 27-26-0884Hbko globulin Elph [Mass/Vol]0.9 g/dL0.7-1.3FLicking Memorial Hospitalerum or plasma gamma globulin measurement by electrophoresis (mass/volume)on 63-14-9599Jhgzs globulin Elph [Mass/Vol]0.5 g/dL 0.4-1.8[facility] Hospitalerum or plasma immunoelectrophoresis interpretationon 59-05-9895Zbqdblmbzaekou IEP [Interp]Comment.[facility] Medical CenterComment on above:No monoclonality detected.Basophils Auto (Bld) [#/Vol]on 76-36-7722Niyxvqynj (Bld) [#/Vol]0.0 10 3/uL0.0-0.1FCleveland Clinic Avon HospitalBasophils/100 WBC Auto (Bld)on 16-31-1273Bxskowdjh/100 WBC (Bld) 0.2 %0.2-2.0[facility] CenterEosinophils/100 WBC Auto (Bld)on 15-09-4216Vbndrpoogqc/100 WBC (Bld)0.2 %0.9-7.0[facility] Erythrocyte distribution width Auto (RBC) [Ratio]on 98-73-1406Xyjrchhrbzd distribution width (RBC) [Ratio]19.9 %11.0-15.0[facility] Hematocrit Auto (Bld) [Volume fraction]on 57-23-1109Ifdvacradd (Bld) [Volume fraction]36.9 %36.0-48.0[facility] Medical CenterHemoglobin [Mass/volume] in Bloodon 53-97-9051Ncqnqangrd (Bld) [Mass/Vol]12.0 g/dL12.0-16.[address] [facility] Medical CenterIron binding capacity [Mass/volume] in Serum or Plasmaon 87-86-5136Ibrq binding capacity [Mass/Vol]279.0 ug/dL250.0-450.[address] [facility] Medical CenterIron saturation [Mass Fraction] in Serum or Plasmaon 86-86-1827Jnba saturation [Mass fraction]20.8 %[facility] Medical CenterLaboratory - Chemistry and Chemistry - challengeon 06-27-2023 Ferritin [Mass/Vol]110.0 ng/mL8.0-252.0[facility] Medical CenterIron [Mass/Vol]58.0 ug/dL50.0-170.0[facility] CenterLaboratory - Hematology and Cell countson 05-46-4176Xvoacfzz granulocytes/100 WBC (Bld)1.4 % 0.0-0.5FCleveland Clinic Avon HospitalLeukocytes [#/volume] corrected for nucleated erythrocytes in Blood by Automated counon 56-20-8159AEV corrected for nucl RBC Auto (Bld) [#/Vol]11.8 10 3/uL4.0-11.0[facility] Lymphocytes Auto (Bld) [#/Vol]on 25-09-1152Uwlcwqljhsx (Bld) [#/Vol]2.2 10 3/uL 1.2-3.8[facility] Medical CenterLymphocytes/100 WBC Auto (Bld)on 74-46-3129Awkdgxemppx/100 WBC (Bld)18.3 %20.5-60.0[facility] CenterH Auto (RBC) [Entitic mass]on 79-41-7888SCL (RBC) [Entitic mass]28.6 pg 26.7-34.0[facility] Medical CenterMCHC Auto (RBC) [Mass/Vol]on 40-28-2295PGII (RBC) [Mass/Vol]32.5 g/dL29.9-35.2FCleveland Clinic Avon HospitalMCV Auto (RBC) [Entitic vol]on 54-58-5722TOR (RBC) [Entitic vol]87.9 fL 81.0-99.0[facility] Medical CenterMonocytes Auto (Bld) [#/Vol]on 62-39-5539Rpayysozc (Bld) [#/Vol]1.4 10 3/uL0.3-0.8[facility] CenterMonocytes/100 WBC Auto (Bld)on 47-20-4944Cyzrzrfuj/100 WBC (Bld)11.8 % 1.7-12.0[facility] Medical CenterNeutrophils Auto (Bld) [#/Vol]on 08-90-0785Kghgkazzbmn (Bld) [#/Vol]8.0 10 3/uL1.4-6.5FCleveland Clinic Avon HospitalNeutrophils/100 WBC Auto (Bld)on 00-68-7721Yjituopdult/100 WBC (Bld)68.1 % 43.0-75.0[facility] Medical CenterNo Panel Informationon 06-27-2023 Eosinophils # (Auto)0.0 10 3/uL0.0-0.7FCleveland Clinic Avon HospitalImmature Granulocyte # (Auto)0.17 10 3/uL0.00-0.03[facility] Platelet mean volume Auto (Bld) [Entitic vol]on 03-90-4387Jbhquxot mean volume (Bld) [Entitic vol]9.7 fL9.5-13.5FCleveland Clinic Avon HospitalPlatelets Auto (Bld) [#/Vol]on 64-46-6880Enamkocjl (Bld) [#/Vol]378 10 3/eU878-902XtewilpgrUniversity Hospitals St. John Medical CenterRBC Auto (Bld) [#/Vol]on 94-48-2086HKS (Bld) [#/Vol]4.20 10 6/uL4.20-5.40[facility] Medical CenterGastroenterology Office/Clinic Noteon 52-76-7632Khoulyzykcnrcxxp Office/Clinic NoteChief Complaint follow up to EGD/colon [...] Every other day fluticasone 0.05 mg/inh Nasal [place], 2 spray(s), Nasal, Daily Fosamax 70 mg Tab, 70 mg= 1 tab(s), Oral, qWeek levothyroxine 88 mcg (0.088 mg) Tab, 88 mcg= 1 tab(s), Oral, Daily Macrobid 100 mg Cap, 100 mg= 1 cap(s), Oral, As Directed, 3 refills, Not (more content not included)...[facility] CenterComment on above:Result Comment: Electronically Signed By: hTo VILLEGAS, Del Ledezma.melissa\Date and Time Signed: 05/30/2407:31 EDTOther Comment: errorGastroenterology [...] (05/22/2023), Esophagogastroduodenoscopy (05/22/2023), Co (more content not included)...[facility] CenterComment on above:Result Comment: Electronically Signed By: Del Nettles MD\.br\Date and Time Signed: 05/30/2407:34 EDTIntraOperative Documentson 94-14-2768MzztaXxsuqlqmp [id number]#1.00TIFFNoHenry County HospitalMain OR Intraoperative Recordon 71-09-9200Sunw OR Intraoperative RecordIntraOp Document Type FT Summary Primary Physician: Del Nettles MD Finalized Date/Time: 05/24/23 14:03:51 Pt. Name: MUNIRA CHESTER/Sex: 1950 Female Med Rec #: [id number] Physician: Del Nettles MD Financial #: [id number] Pt. 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 Yes Last Modified By: Carrie KILLIAN, Neli Barrera 05/22/23 08:16:14 Post-Care Text: The patient is [...] and tissue Entry 1 Skin Integrity Intact, [place], Warm, and Skin Abnormality No Dry Outcomes Met? 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 / Confirmed Recurrent UTI / SNOMED CT 614373293 / Confirmed Osteopenia of lumbar spine / SNOMED CT 876778047 / Confirmed Nocturia / SNOMED CT 566051519 / Confirmed Mild persistent asthma / SNOMED CT 4519108647 / Confirmed Migraine / SNOMED CT 95580707 / Confirmed Microscopic hematuria / SNOMED CT 166730173 / Confirmed Lumbar spondylosis / SNOMED CT 192307278 / Confirmed Mixed incontinence / SNOMED CT 20105106 / Confirmed Hypertension / SNOMED CT 7909907040 / Confirmed Hyperlipidemia / SNOMED CT 86916661 / Confirmed Personal history of colonic polyps / SNOMED CT 5069755274 / Confirmed History of gastric ulcer / SNOMED CT 080125014 / Confirmed H/O gastric ulcer / SNOMED CT 540626052 / Confirmed Graves disease / SNOMED CT 028417732 / Confirmed GERD (gastroesophageal reflux disease) / SNOMED CT 218038594 / Confirmed Incomplete bladder emptying / SNOMED CT 758521469 / Confirmed Epigastric pain / SNOMED CT 531670478 / Confirmed Chronic tension headache / SNOMED CT 877052466 / Confirmed Cervical spondylosis / SNOMED CT 4070282402 / Confirmed Bilateral cataracts / SNOMED CT 964409171 / Confirmed Benign essential hypertension / SNOMED CT 8410812 / Confirmed Hypothyroidism, acquired, autoimmune / SNOMED CT 209812981 / Confirmed Asymptomatic microscopic hematuria / SNOMED CT 2180515004 / Confirmed Asthma / SNOMED CT 540902258 / Confirmed Arthritis / SNOMED CT 7149542 / Confirmed Acute allergic rhinitis due to pollen / SNOMED CT 21313456 / Confirmed Abdominal bloating / SNOMED CT 011685957 / Confirmed Resolved: Reflux of urine / SNOMED CT 9048142676 Histories Procedure history: Colonoscopy ([id number]) on 09/07/2019 at 69 Years. EGD - Esophagogastroduodenoscopy ([id number]) on 09/07/2019 at 69 Years. EGD - Esophagogastroduodenoscopy ([id number]) on 01/16/2015 at 64 Years. Colonoscopy ([id number]) on 01/16/2015 at 64 Years. Comments: 08/31/2019 16:19 EDT - Tonie Barragan LPN normal EGD - Esophagogastroduodenoscopy ([id number]) on 08/17/2011 at 61 Years. EGD - Esophagogastroduodenoscopy ([id number]) on 05/17/2011 at 60 Years. Laparoscopic cholecystectomy (80154151) on 06/16/2010 at 59 Years. Colonoscopy ([id number]) on 01/16/2010 at 59 Years. section (91852808). Rotator cuff repair (386727914). Tubal ligation (140726534). Cataracts (3099713756). Foot (52802217). Social History Social & Psychosocial Habits Alcohol 05/14/2023 Risk Assessment: Denies Alcohol Use Substance Abuse 05/14/2023 Risk Assessment: Denies Substance Abuse Tobacco 05/14/2023 Tobacco Use: Never (less than 100 in l Smokeless tobacco use: Never Concerns about tobacco use in household: No . Physical Examination Airway: Mallampati classification: II (soft palate, fauces, uvula visible). Respiratory: adequate air exchange. Cardiovascular: Regular rhythm. Plan [place] [employer]esthesi[employer] (ASA) physical status classification: Class II. Anesthetic Preoperative Plan: Anesthesia General.[facility] Medical CenterComment on above:Result Comment: Electronically Signed By: Jay Jay Valderrama Jr, DO\swati\Date and Time Signed: 05/24/23 13:56 ESTProgress Note-Physician [...] Discharge when meets criteria ( To home ).[facility] CenterComment on above:Result Comment: Electronically Signed By: Jay Jay Valderrama Jr, DO\.br\Date and Time Signed: 05/24/23 13:53 ESTRAD - CT Reporton 88-50-4904LGF - CT Report [id number]#1.00TIFAlexandreaUk HealthcareRAD - CT [id number]#1.00TIFFAlexandrea Garay [facility] CenterConsenton 39-49-1055Drzxqan [id number]#1.00TIFMitchCleveland ClinicDischarge Instructionson 44-64-5465Imitkcmvg Instructions [id number]#1.00[facility] HospitalPostoperative Documentson 45-06-5248Obserajzhpykw Documents [id number]#1.00[facility] HospitalColonoscopy Procedure Reporton 45-14-5147Ojryuaohtpg Procedure Report Patient: MUNIRA CHESTER Age: 72 years Sex: Female : 1950 Associated Diagnoses: None Author: Tho VILLEGAS, Del Springer. Pre-Procedure Procedure Date 05/22/2023 08:47:00 . Procedure Type: Colonoscopy. Procedure provider me. Current history and physical Colonoscopy ([id number]) on 09/07/2019 at 69 Years. EGD - Esophagogastroduodenoscopy (9465458888) on 09/07/2019 at 69 Years. EGD - Esophagogastroduodenoscopy (4381177428) on 01/16/2015 at 64 Years. Colonoscopy (670896084) on 01/16/2015 at 64 Years. Comments: 08/31/2019 16:19 EDT - Tonie Barragan LPN normal EGD - Esophagogastroduodenoscopy (2715927194) on 08/17/2011 at 61 Years. EGD - Esophagogastroduodenoscopy (7474865110) on 05/17/2011 at 60 Years. Laparoscopic cholecystectomy (39947803) on 06/16/2010 at 59 Years. Colonoscopy (021504976) on 01/16/2010 at 59 Years. section (). Rotator cuff repair (905826173). Tubal ligation (566860100). Cataracts (2998241538). Foot (32224434).. Past Medical History Resolved Reflux of urine (7880113992): Resolved.. Family History Rheumatoid arthritis Mother Primary malignant neoplasm of lung Mother Diabetes mellitus type 2 Father Primary malignant neoplasm of female breast Sister . Procedure History Colonoscopy ([id number]) on 09/07/2019 at 69 Years. EGD - Esophagogastroduodenoscopy (5033643618) on 09/07/2019 at 69 Years. EGD - Esophagogastroduodenoscopy (8463394354) on 01/16/2015 at 64 Years. Colonoscopy (210167670) on 01/16/2015 at 64 Years. Comments: 08/31/2019 16:19 EDT - Tonie Barragan LPN normal EGD - Esophagogastroduodenoscopy (5842075884) on 08/17/2011 at 61 Years. EGD - Esophagogastroduodenoscopy (8797192532) on 05/17/2011 at 60 Years. Laparoscopic cholecystectomy (59764914) on 06/16/2010 at 59 Years. Colonoscopy (909409828) on 01/16/2010 at 59 Years. section (). Rotator cuff repair (674301680). Tubal ligation (424028592). Cataracts (5321218638). Foot (09744118).. Colorectal neoplasm risk assessment Average risk. Informed [...] infection., # 30 cap(s), Refills(s) 3, [facility], [facility], 02/20/23 8:48:00 EST, Height/Length Dosing, 68.5, kg,... Pantoprazole [address] Tab: 40 mg = 1 tab(s), Oral, Daily, # 90 tab(s), Refills(s) 1, Pharmacy: [facility] [facility], 154.9, cm, 12/11/19 9:26:00 EDT, Height/Length Dosing, 70.2, kg, 12/11/19 9:26:00 EDT, Weight Dosing estradiol 0.1 mg/g Vag Crm: See Instructions, 42.5 gm, Refill(s) 0, apply pea sized amount to urethra 2x/wk, [facility], 158, cm, 02/20/23 8:48:00 EST, [...] of stomach acid fluticasone 0.05 mg/inh Nasal [place]: 2 spray(s), Nasal, Daily, Refill(s) 0 levothyroxine [...] procedure well. Findings Diverticul (more content not included)...[facility] Comment on above:Other Comment: Missing Attachment - attachment storage system not supported [id number] Can be viewed in source systemMissing Attachment - attachment storage system not supported 6951690 Can be viewed insour systemMissing Attachment - attachment storage system not supported 2463518 Can be viewed in source systemMissing Attachment - attachment storage system not supported 6998930 Can be viewed in source systemMissing Attachment - attachment storage system not supported 5336574 Can be viewed in source systemMissing Attachment - attachment storage system not supported 1525857 Can be viewed in source systemMissing Attachment - attachment storage system not supported 5454868 Can be viewed in source systemMissing Attachment - attachment storage system not supported 2188268 Can be viewed in source systemConsent for Treatment on 72-01-3642Tqdvehj for Treatment [id number]#1.00TIFFNoHenry County HospitalConsultation Noteon 10-36-8336Hubynrcpmzri NotePatient: MUNIRA CHESTER Age: 72 years Sex: [...] infection., # 30 cap(s), Refills(s) 3, [facility], cm, 02/20/23 8:48:00 EST, Height/Length Dosing, 68.5, kg,... Pantoprazole [address] Tab: 40 mg = 1 tab(s), Oral, Daily, # 90 tab(s), Refills(s) 1, Pharmacy: [facility] [facility], 154.9, cm, 12/11/19 9:26:00 EDT, Height/Length Dosing, 70.2, kg, 12/11/19 9:26:00 EDT, Weight Dosing estradiol 0.1 mg/g Vag Crm: See Instructions, 42.5 gm, Refill(s) 0, apply pea sized amount to urethra 2x/wk, [facility], 158, cm, 02/20/23 8:48:00 EST, [...] of stomach acid fluticasone 0.05 mg/inh Nasal [place]: 2 spray(s), Nasal, Daily, Refill(s) 0 levothyroxine [...] obtained from the duodenum Images Procedure images: Rec1_hd_video_2023__06T08_24_29_414.jpg Rec1_hd_video_2023__T08_24_44_784.jpg Rec1_hd_video_2023__T08_24_53_345.jpg Rec1_hd_video_2023__T08_25_03_390.jpg Rec1_hd_video_2023__T08_25_23_607.jpg Rec1_hd_video_2023__06T08_25_30_290.jpg Rec1_hd_video_2023__T08_27_16_512.jpg Rec1_hd_video_2023__06T08_27_56_296.jpg Rec1_hd_video_2023__06T08_28_57_453.jpg Rec1_hd_video_2023__06T08_29_31_556.jpg Rec1_hd_video_2023__06T08_29_57_490.jpg . Post-Procedure Complications: none. Estimated blood loss: none. Specimens: sent to pathology. Devices/ implants: none left in place. Impression and Plan EGD: Diagnosis: Bile reflux gastritis (OEW90-QM K29.60, Working, Medical). Course: Progressing as expected. Education and Follow-up: Counseled: Family. Notes: Continue current medication Follow-up pathology report. might benefit from CT enterography versus capsule endoscopy in the futureNoal Uk HealthcareComment on above:Result Comment: Electronically Signed By: Tho VILLEGAS, Del Ledezma.br\Date and Time Signed: 05/21/2408:05 EST Other Comment: Missing Attachment - attachment storage system not supported [id number] Can be viewed in source systemMissing Attachment - attachment storage system not supported 4763364 Can be viewed insource systemMissing Attachment - attachment storage system not supported 9276211 Can be viewed in source systemMissing Attachment - attachment storage system not supported 9624717 Can be viewed in source systemMissing Attachment - attachment storage system not supported 5244501 Can be viewed in source systemMissing Attachment - attachment storage system not supported 6709922 Can be viewed in source systemMissing Attachment - attachment storage system not supported 7021679 Can be viewed in source systemMissing Attachment - attachment storage system not supported 0178861 Can be viewed in source systemMissing Attachment - attachment storage system not supported 0560117 Can be viewed in sourcesystemMissing Attachment - attachment storage system not supported 6380333 Can be viewed in source s ystemMissing Attachment - attachment storage system not supported 5564492 Can be viewed in source systemConsultation NotePatient: MUNIRA CHESTER Age: 72 years Sex: Female : 1950 Associated Diagnoses: None Author: Tho VILLEGAS, Del Springer. Pre-Procedure Procedure Date 05/22/2023 08:47:00 . Procedure Type: Colonoscopy. Procedure provider me. Current history and physical Colonoscopy ([id number]) on 09/07/2019 at 69 Years. EGD - Esophagogastroduodenoscopy (8285572670) on 09/07/2019 at 69 Years. EGD - Esophagogastroduodenoscopy (8456545198) on 01/16/2015 at 64 Years. Colonoscopy (953855613) on 01/16/2015 at 64 Years. Comments: 08/31/2019 16:19 EDT - Tonie Barragan LPN normal EGD - Esophagogastroduodenoscopy (8333632687) on 08/17/2011 at 61 Years. EGD - Esophagogastroduodenoscopy (2111612319) on 05/17/2011 at 60 Years. Laparoscopic cholecystectomy (66817314) on 06/16/2010 at 59 Years. Colonoscopy (144580199) on 01/16/2010 at 59 Years. section (93934854). Rotator cuff repair (787957983). Tubal ligation (107192060). Cataracts (4038409803). Foot (51648155).. Past Medical History Resolved Reflux of urine (6584662262): Resolved.. Family History Rheumatoid arthritis Mother Primary malignant neoplasm of lung Mother Diabetes mellitus type 2 Father Primary malignant neoplasm of female breast Sister . Procedure History Colonoscopy (496613897) on 09/07/2019 at 69 Years. EGD - Esophagogastroduodenoscopy (8941042321) on 09/07/2019 at 69 Years. EGD - Esophagogastroduodenoscopy (8335016944) on 01/16/2015 at 64 Years. Colonoscopy (425815154) on 01/16/2015 at 64 Years. Comments: 08/31/2019 16:19 EDT - Tonie Barragan LPN normal EGD - Esophagogastroduodenoscopy (6958517394) on 08/17/2011 at 61 Years. EGD - Esophagogastroduodenoscopy (6155350245) on 05/17/2011 at 60 Years. Laparoscopic cholecystectomy (38366239) on 06/16/2010 at 59 Years. Colonoscopy (648746526) on 01/16/2010 at 59 Years. section (82610625). Rotator cuff repair (646421257). Tubal ligation (860269255). Cataracts (3332475269). Foot (94789704).. Colorectal neoplasm risk assessment Average risk. Informed [...] infection., # 30 cap(s), Refills(s) 3, [facility], cm, 02/20/23 8:48:00 EST, Height/Length Dosing, 68.5, kg,... Pantoprazole [address] Tab: 40 mg = 1 tab(s), Oral, Daily, # 90 tab(s), Refills(s) 1, Pharmacy: [facility] [facility], 154.9, cm, 12/11/19 9:26:00 EDT, Height/Length Dosing, 70.2, kg, 12/11/19 9:26:00 EDT, Weight Dosing estradiol 0.1 mg/g Vag Crm: See Instructions, 42.5 gm, Refill(s) 0, apply pea sized amount to urethra 2x/wk, [facility], 158, cm, 02/20/23 8:48:00 EST, [...] of stomach acid fluticasone 0.05 mg/inh Nasal [place]: 2 spray(s), Nasal, Daily, Refill(s) 0 levothyroxine [...] the procedure well. Findings (more content not included)...[facility] CenterComment on above:Result Comment: Electronically Signed By: Del Nettles MD\.br\Date and Time Signed: 05/22/2407:51 EST errorOther Comment: Missing Attachment - attachment storage system not supported [id number] Can be viewed in source systemMissing Attachment - attachment storage system not supported 8840533 Can be viewed insource systemMissing Attachment - attachment storage system not supported 2302475 Can be viewed in source systemMissing Attachment - attachment storage system not supported 7058687 Can be viewed in source systemMissing Attachment - attachment storage system not supported 5549801 Can be viewed in source systemMissing Attachment - attachment storage system not supported 2356504 Can be viewed in source systemMissing Attachment - attachment storage system not supported 3249128 Can be viewed in source systemMissing Attachment - attachment storage system not supported 4975237 Can be viewed in source systemDischarge Instructionson [...] Tab) fluticasone nasal (fluticasone 0.05 mg/inh Nasal [place]) fluticasone/umeclidinium/vilanterol (Trelegy Ellipta) iron polysaccharide (Ferrex-150) levothyroxine [...] Asuncion Buchanan MD [facility]:Result Comment: Electronically Signed By: Byron KILLIAN, Saida.melissa\Date and Time Signed: 05/22/23 09:29 ESTDischarge Instructions [...] Tab) fluticasone nasal (fluticasone 0.05 mg/inh Nasal [place]) fluticasone/umeclidinium/vilanterol (Trelegy Ellipta) iron polysaccharide (Ferrex-150) levothyroxine [...] VILLEGAS, Asuncion [place] [facility]Comment on above:Result Comment: Electronically Signed By: Nat Rodriguez\Date and Time Signed: 05/22/23 08:59 ESTEGDon 05-22-2023 EsophagogastroduodenoscopyPatient: MUNIRA CHESTER Age: 72 years Sex: Female : 1950 Associated Diagnoses: None Author: Del Netltes MD Pre-Procedure Procedure Date 05/22/2023 08:23:00 . [...] infection., # 30 cap(s), Refills(s) 3, Pharmacy: [facility], 158, cm, 02/20/23 8:48:00 EST, Height/Length Dosing, 68.5, kg,... Pantoprazole [address] Tab: 40 mg = 1 tab(s), Oral, Daily, # 90 tab(s), Refills(s) 1, Pharmacy: [facility] [facility], 154.9, cm, 12/11/19 9:26:00 EDT, Height/Length Dosing, 70.2, kg, 12/11/19 9:26:00 EDT, Weight Dosing estradiol 0.1 mg/g Vag Crm: See Instructions, 42.5 gm, Refill(s) 0, apply pea sized amount to urethra 2x/wk, [facility], 158, cm, 02/20/23 8:48:00 EST, [...] of stomach acid fluticasone 0.05 mg/inh Nasal [place]: 2 spray(s), Nasal, Daily, Refill(s) 0 levothyroxine [...] obtained from the duodenum Images Procedure images: Rec1_hd_video_4_03_T08_24_29_414.jpg Rec1_hd_video_4__06T08_24_44_784.jpg Rec1_hd_video_4_03_T08_24_53_345.jpg Rec1_hd_video_4_03_06T08_25_03_390.jpg Rec1_hd_video_4_03_06T08_25_23_607.jpg Rec1_hd_video_4_03_06T08_25_30_290.jpg Rec1_hd_video_4_03_06T08_27_16_512.jpg Rec1_hd_video_4_03_06T08_27_56_296.jpg Rec1_hd_video_4__06T08_28_57_453.jpg Rec1_hd_video_4_03_06T08_29_31_556.jpg Rec1_hd_video_4_03_06T08_29_57_490.jpg . Post-Procedure Complications: none. Estimated blood loss: none. Specimens: sent to pathology. Devices/ implants: none left in place. Impression and Plan EGD: Diagnosis: Bile reflux gastritis (ZCQ93-EX K29.60, Working, Medical). Course: Progressing as expected. Education and Follow-up: Counseled: Family. Notes: Continue current medication Follow-up pathology report.[facility] CenterComment on above: Other Comment: Missing Attachment - attachment storage system not supported [id number] Can be viewed in source systemMissing Attachment - attachment storage system not supported 8706454 Can be viewed insource systemMissing Attachment - attachment storage system not supported 5976896 Can be viewed in source systemMissing Attachment - attachment storage system not supported 7476475 Can be viewed in source systemMissing Attachment - attachment storage system not supported 5510612 Can be viewed in source systemMissing Attachment - attachment storage system not supported 5189566 Can be viewed in source systemMissing Attachment - attachment storage system not supported 8739924 Can be viewed in source systemMissing Attachment - attachment storage system not supported 6697831 Can be viewed in source systemMissing Attachment - attachment storage system not supported 8694581 Can be viewed in sourcesystemMissing Attachment - attachment storage system not supported 3626743 Can be viewed in source s ystemMissing Attachment - attachment storage system not supported 8410668 Can be viewed in source systemMain OR PACU I Recordon 24-01-9146Xrvy OR PACU I Record PACU Phase I Document Type FT Summary Primary Physician: eDl Nettles MD Finalized Date/Time: 05/22/23 09:41:42 Pt. Name: MUNIRA CHESTER/Sex: 1950 Female Med Rec #: [id number] Physician: Del Nettles MD Financial #: [id number] Pt. Type: O Room/Bed: / Admit/Disch: 05/22/23 [...] Signatures Signed By: Nat Rodriguez I 05/22/23 09:41[facility] CenterMain OR Preoperative Recordon 26-23-8867Kcgq OR Preoperative RecordHolding Area Document Type FT Summary Primary Physician: Del Nettles MD Finalized Date/Time: 05/22/23 07:08:55 Pt. Name: MUNIRA CHESTER/Sex: 1950 Female Med Rec #: [id number] Physician: Del Nettles MD Financial #: [id number] Pt. Type: O Room/Bed: / Admit/Disch: 05/22/23 [...] No Patient states Yes Comment - Adult Cyrsu- spouse postop adult Supervision supervision available Case Cancelled in No Holding Area see comments below for reason Last Modified By: Neli Butler RN 05/22/23 07:08:52 General Comments: Pt finished colon prep at 0300, states stool is clear liquid yellow. Has been NPO since. /,RN Finalized By: Neli Butler RN Document Signatures Signed By: Neli Butler RN 05/22/23 07:08[facility] Recordon 92-31-5830Kghjizq Record [id number]#1.00TIFFLima Memorial Hospital [id number]#1.00TIFFNormal Garay [facility] CenterPatient Education - Texton 62-09-4042Ohbltyr Education - TextColonoscopy Care After Surgery Please read the instructions outlined below and refer to this sheet in the next few weeks. These discharge instructions provide you with general information on caring for yourself after you [facility]. Your doctor may also give you specific [...] unsweetened, w/added ascorbic acid 1 cup 0.5 [place] 1 cup 0.7 Vegetables Cooked Green beans 1 cup 4.0 Carrots 1/2 cup sliced 2.3 Peas 1 cup 8.8 Potato (baked, with skin) 1 medium potato 3.8 Raw [place] (with peel) 1 cucumber 1.5 Lettuce 1 [...] 8.7 Peanuts 1/2 cup 7.9 [facility]. SEEK IMMEDIATE MEDIC (more content not included)...[facility] Medical CenterConsent for Procedure/Surgeryon 81-00-5253Wyqkcve for Procedure/Surgery [id number]#1.00TIFFNoHenry County HospitalAmbulatory Visit Summaryon 81-65-5544Aofbsorzcq Visit Summary MUNIRA CHESTER :1950 Visit Date:05/14/2023 [...] Tab) fluticasone nasal (fluticasone 0.05 mg/inh Nasal [place]) fluticasone/umeclidinium/vilanterol (Trelegy Ellipta 200 mcg-62.5 mcg-25 mcg/inh [...] VILLEGAS, Asuncion [place] Where: [facility] HospitalGastroenterology Office/Clinic Noteon 05-14-2023 Gastroenterology Office/Clinic NoteChief Complaint ref by [place] Staff This is a 72 year old [...] Tab, Oral, BID fluticasone 0.05 mg/inh Nasal [place], 2 spray(s), Nasal, Daily Fosamax 70 mg [...] virus vaccine, inactivated 12/31/2022 Recorded SARS-CoV-2 (COVID-19) mRNAMUL.ORD![id number] 12/22/2021 Recorded influenza virus vaccine, inactivated 12/18/2021 Recorded SARS-CoV-2 (COVID-19) mRNA-1273 vaccine 07/04/2021 Recorded SARS-CoV-2 (COVID-19) mRNA-1273 vaccine 01/23/2021 Recorded influenza virus vaccine, inactivated 11/23/2020 Recorded SARS-CoV-2 (COVID-19) mRNA-1273 vaccine 06/02/2020 Recorded SARS-CoV-2 (COVID-19) mRNA-1273 vaccine 05/05/2020 Recorded SARS-CoV-2 (COVID-19) mRNA-1273 vaccine 2020 Recorded 3 shots to date infl (more content not included)...[facility] CenterComment on above:Result Comment: Electronically Signed By: Del Nettles MD.br\Date and Time Signed: 05/14/2412:06 ESTGastroenterology Office/Clinic NoteChief [...] anemia was found to be low around [place] time a new issue for her no [...] Tab, Oral, BID fluticasone 0.05 mg/inh Nasal [place], 2 spray(s), Nasal, Daily Fosamax 70 mg [...] Substance Abuse - Denies (more content not included)...[facility] CenterComment on above:Result Comment: Electronically Signed By: Tho VILLEGAS, Del Duckworth\.br\Date and Time Signed: 05/14/2412:07 ESTPhysician Referralon 24-73-3798Ybuvmkefh [id number]#1.00TIFF [facility] CenterAmbulatory Visit Summaryon 30-59-4764Kaprrwwnip Visit Summary MUNIRA CHESTER :1950 Visit Date:02/20/2023 Ambulatory Visit Instructions Your Diagnosis Mixed incontinence Recurrent UTI Urethral caruncle Tests Performed Urnls Dip Stick Auto w/o Microscopy POC 14393 Your Care Team Attending Physician - Dewayne [...] Tab) fluticasone nasal (fluticasone 0.05 mg/inh Nasal [place]) fluticasone/umeclidinium/vilanterol (Trelegy Ellipta 200 mcg-62.5 mcg-25 mcg/inh [...] VILLEGAS, Asuncion [place] Where: [facility] Educationon 19-66-8751Tqblrpy EducationObstetrics and Gynecology Pelvic Floor Dysfunction, Female [...] pelvic muscle tension or spasms. ? Take tiuo-sbb-kvzmpow and prescription medicines only as told by [...] a bowel movement i (more content not included)...[facility] Medical CenterUrology Office/Clinic Noteon 04-08-3085Cmojjvj Office/Clinic NoteChief Complaint 1yr HPI Staff 1yr [...] Dewayne VILLEGAS, Asuncion [place], URL, [facility] [address] [place] [address] [phone] Additional Instructions: 1 yr Patient Education Pelvic [...] headache Duodenal stricture Epigast (more content not included)...[facility] CenterComment on above:Result Comment: Electronically Signed By: Asuncion Buchanan MD\.br\Date and Time Signed: 02/20/23 18:21EST\.br\Electronically Co-Signed By: Kimmie Lemus\.br\Date and Time Co-Signed: 02/20/23 09:53 ESTPOINT OF CARE GLUCOSEon 73-27-3200Wbfnaqq [Mass/Vol]94 mg/fKFtoptd11-937Ceh [facility] CenterComment on above:Performed By: #### POCGLUC ####[facility] [address] [place], [place] [address]LtDr. Dwight MarioGlucose [Mass/Vol]106 mg/iWVsvnid06-950 The [facility] CenterComment on above:Performed By: #### POCGLUC ####[facility] [address] [place] [id number]. Dwight Mario Covid-19 PCR (CVDTBH)on 14-97-0490BYHI-CoV-2 (COVID-19) RNA GIOVANI+probe Ql (Unsp spec)Not detectedNormalNOT DETECTEDThe [facility] Medical CenterCombeaumont hospital on above:Result Comment: This test is not yet approved or cleared by the [place] FDA. When there are no FDA-approved or cleared tests available, and other criteria are met, FDA can make tests available under an emergency access mechanism called an Emergency Use Authorization (EUA). The EUA for this test is supported by the [place] [employer] of Health and Human Service's (HHS's) declaration [...] consistent with SARS-CoV-2.Performed By: #### CVDTBH #### [facility] [address] [address] [address] Dwight MarioPROF CHEM 8 (BAS METB)on 58-96-7348Scffy gap [Moles/Vol]13.4 mmol/LNormalThe [facility] CenterComment on above:Performed By: #### BMP #### [facility] [address] [place] [address] Dr. Dwight MarioCalcium [Mass/Vol]9.1 mg/dLNormal8.5-10.1The [facility] Comment on above:Performed By: #### BMP #### [facility] [address] [place] [address] Dr. Dwight MarioChloride [Moles/Vol]107 mmol/VNmglzw38-810Evj [facility] Comment on above:Performed By: #### BMP #### [facility] [address] [place] [address] Dr. Dwight MarioCO2 [Moles/Vol]26.5 mmol/JJihglr90.0-32.0The [facility] Comment on above:Performed By: #### BMP #### [facility] [address] [place] [address] Dr. Dwight MarioCreatinine [Mass/Vol]0.76 mg/dLNormal0.55-1.02The [facility] CenterComment on above:Performed By: #### BMP #### [facility] [address] [place] [address] Dr. Dwight PhillipGFR-AF COSTA RICAN>60Normal>=60The [facility] Medical CenterComment on above:Performed By: #### BMP #### [facility] [address] [place] [address] Dr. Dwight PhillipGFR-NON AF COSTA RICAN>60Normal>=60The [facility] CenterComment on above:Performed By: #### BMP #### [facility] [address] [place] [address] Dr. Dwight MarioGlucose [Mass/Vol]108 mg/dLCritically vodk03-085Omj [facility] CenterComment on above:Performed By: #### BMP #### [facility] [address] [place] [address] Dr. Dwight MarioPotassium [Moles/Vol]3.9 mmol/LNormal3.5-5.1The [facility] Comment on above:Performed By: #### BMP #### [facility] [address] [place] [address] Dr. Dwight Elliottdium [Moles/Vol]143 mmol/GQixjuk054-383Uvl [facility] Comment on above:Performed By: #### BMP #### [facility] [address] [place] [address] Dr. Dwight MarioUrea nitrogen [Mass/Vol]25.0 mg/dLCritically high7.0-18.0[facility]ucl[facility] HospitalComment on above:Performed By: #### BMP #### [facility] [address] [place] [address] Dr. Dwight Burciaga nitrogen/Creatinine [Mass ratio]32.9 mg/mgNormalThe [facility] CenterComment on above:Performed By: #### BMP #### [facility] [address] [place] [address] Dr. Dwight Lewis AUTO DIFFon [id number] #0.0 103/ulNormal0.0-0.1[facility]ucl[facility] HospitalComment on above:Performed By: #### CBC #### [facility] [address] [place] [address] Dr. Dwight MarioBasophils/100 WBC (Bld)0.4 %Normal0.2-2.0[facility] Comment on above:Performed By: #### CBC #### [facility] [address] [place] [address] Dr. Dwight Kay #0.3 103/ulNormal0.0-0.7The [facility] CenterComment on above: Performed By: #### CBC #### [facility] [address] [place] [address] Dr. Dwight Philliposinophils/100 WBC (Bld)2.8 %Normal0.9-7.0[facility] Comment on above:Performed By: #### CBC #### [facility] [address] [place] [address] Dr. Dwight Philliprythrocyte distribution width (RBC) [Ratio]14.0 %Nlcvjj63.0-15.0 The [facility] CenterComment on above:Performed By: #### CBC #### [facility] [address] [place] [address] Dr. Dwight MarioHematocrit (Bld) [Volume fraction]38.3 %Ntddhu88.0-48.0The [facility] CenterComment on above:Performed By: #### CBC #### [facility] [address] [place] [address] Dr. Dwight MarioHemoglobin (Bld) [Mass/Vol]12.6 g/eYDmiipg41.0-16.0The [facility] CenterComment on above:Performed By: #### CBC #### [facility] [address] [place] [address] Dr. Dwight Triplett #0.03 10e3/ulNormal0.00-0.03The [facility] CenterComment on above:Performed By: #### CBC #### [facility] [address] [place] [address] Dr. Dwight Triplett %0.3 %Normal0.0-0.5The [facility] CenterComment on above: Performed By: #### CBC #### [facility] [address] [place] [address] Dr. Dwight Ross #2.9 103/ulNormal1.2-3.8The [facility] CenterComment on above:Performed By: #### CBC #### [facility] [address] [place] [address] Dr. Dwight Dowellhocytes/100 WBC (Bld)29.0 %Fsznfy82.5-60.0The [facility] CenterComment on above:Performed By: #### CBC #### [facility] [address] [place] [address] Dr. Dwight WynnUAL DIFF REQNONormalThe [facility] CenterComment on above: Performed By: #### CBC #### [facility] [address] [place] [address] Dr. Dwight Butler (RBC) [Entitic mass]30.3 etKsqxxo36.7-34.0The [facility] CenterComment on above:Performed By: #### CBC #### [facility] [address] [place] [address] Dr. Dwight Henry (RBC) [Mass/Vol]32.9 g/lNDpuami83.9-35.2The [facility] CenterComment on above:Performed By: #### CBC #### [facility] [address] [place] [address] Dr. Dwight Henry (RBC) [Entitic vol]92.1 jSQseyhg20.0-99.0The [facility] CenterComment on above:Performed By: #### CBC #### [facility] [address] [place] [address] Dr. Dwight Otero #0.8 103/ulNormal0.3-0.8The [facility] CenterComment on above:Performed By: #### CBC #### [facility] [address] [place] [address] Dr. Dwight Butlerocytes/100 WBC (Bld)7.9 %Normal1.7-12.0The [facility] Comment on above:Performed By: #### CBC #### [facility] [address] [place] [address] Dr. Dwight Andres #5.9 103/ulNormal1.4-6.5The [facility] CenterComment on above:Performed By: #### CBC #### [facility] [address] [place] [address] Dr. Dwight Floresutrophils/100 WBC (Bld)59.6 %Ewguzs07.0-75.0The [facility] CenterComment on above:Performed By: #### CBC #### [facility] [address] [place] [address] Dr. Dwight Ansarilet mean volume (Bld) [Entitic vol]9.4 fLCritically low 9.5-13.5The [facility] CenterComment on above:Performed By: #### CBC #### [facility] [address] [address] [address] Dwight MarioPLT385 103/ttYctgcr938-917Jtv [facility] CenterComment on above: Performed By: #### CBC #### [facility] [address] [address] [address] Dwight MarioRBC4.16 106/ulCritically low4.20-5.40The [facility] CenterComment on above:Performed By: #### CBC #### [facility] [address] [address] [address] Dwight MarioWBC10.0 103/ulNormal4.0-11.0The [facility] CenterComment on above:Performed By: #### CBC #### [facility] [address] [place] [address] Dr. Dwight MarioLIPID PROFILEon [id number]-HDL RATIO NORMSMadison HealthComment on above:Result Comment: 3.3 - 4.4 LOW RISK 4.4 - 7.1 AVERAGE RISK 7.1 - 11.0 MODERATE RISK >11.0 HIGH RISKPerformed By: #### LIPID, BMP, ALT, TSH ####[facility] [address] [address]Dr. Dwight MarioCholesterol [Mass/Vol]184 mg/dLNormal<=200The [facility] CenterComment on above:Performed By: #### LIPID, BMP, ALT, TSH ####[facility] [address] [address]DrJose Mario Cholesterol in HDL [Mass/Vol]61 mg/dLCritically nejn74-80Eth [facility] Comment on above:Performed By: #### LIPID, BMP, ALT, TSH ####[facility] [address] [address]DrJose MarioCholesterol in LDL [Mass/Vol]96.0 mg/dLOhioHealthComment on above:Performed By: #### LIPID, BMP, ALT, TSH ####[facility] [address] [address]DrJose MarioCholesterol.total/Cholesterol in HDL [Mass ratio]3.0 {ratio}NormalCleveland Clinic Euclid HospitalComment on above:Performed By: #### LIPID, BMP, ALT, TSH ####[facility] [address] [address]Dr. Dwight ChangHDL NORMAL> or = 60 mg/dl - LOW CARDIOVASCULAR RISK <40 mg/dl - HIGH CARDIOVASCULAR RISKOhioHealthComment on above:Performed By: #### LIPID, BMP, ALT, TSH ####[facility] [address] [address]Dr. Yilan ChangLDL CALC NORMALSEE BELOWOhioHealthComment on above:Result Comment: <100 mg/dl OPTIMAL 100 - 129 mg/dl NEAR OR ABOVE OPTIMAL 130 - 159 mg/dl BORDERLINE HIGH 160 - 189 mg/dl HIGH >190 mg/dl VERY HIGHPerformed By: #### LIPID, BMP, ALT, TSH ####[facility] [address] [address]Dr. Dwight ChangTriglyceride [Mass/Vol]135 mg/dLNormal <=150C[facility]uclid HospitalComment on above:Performed By: #### LIPID, BMP, ALT, TSH ####[facility] [address] [address]Dr. Dwight ChangVLDL CALC27.0 mg/dLOhioHealthComment on above: Performed By: #### LIPID, BMP, ALT, TSH ####[facility] [address] [address]Dr. Yilan ChangMG MAMM SCREEN 3D ALLEGRA CADon [id number] MAMM SCREEN 3D ALLEGRA CADPatient: MUNIRA CHESTER Exam Date: 01/29/2022 : 1950 Gender:F Ordering : DR ANDREA GOLDEN D.O. Admission #: [id number] Family : DR. MADISON BURNS D.O. Order #: [id number] CLICK HERE TO VIEW EXAM RADIOLOGY REPORT [...] breast cancer at age 61. LOCATION: [facility] BREAST COMPOSITION: Scattered areas fibroglandular [...] by: Campos Erazo MD on 01/29/2022 at 15:25[facility] PROF CHEM 8 (BAS METB)on 57-89-1761Eahiu gap [Moles/Vol]9.7 mmol/LNormalCleveland Clinic Euclid HospitalComment on above:Performed By: #### LIPID, BMP, ALT, TSH ####[facility] [address] [id number]. Yilan ChangCalcium [Mass/Vol]8.9 mg/dLNormal8.5-10.1The [facility] CenterComment on above:Performed By: #### LIPID, BMP, ALT, TSH ####[facility] [address] [address]Dr. Yilan ChangChloride [Moles/Vol]105 mmol/LAipvqe05-561Rkh [facility] Centerment on above:Performed By: #### LIPID, BMP, ALT, TSH ####[facility] [address] [address]Dr. Yilan ChangCO2 [Moles/Vol]27.3 mmol/LNormal 21.0-32.0The [facility] CenterComment on above:Performed By: #### LIPID, BMP, ALT, TSH ####[facility] [address] [address]Dr. Yilan ChangCreatinine [Mass/Vol]0.80 mg/dLNormal0.55-1.02The [facility] CenterComment on above:Performed By: #### LIPID, BMP, ALT, TSH ####[facility] [address] [place], [place] [address]Dr. Yilan ChangEGFR- AF COSTA RICAN>60Normal>=60The [facility] CenterComment on above:Performed By: #### LIPID, BMP, ALT, TSH ####[facility] [address] [place], [place] [address]Dr. Yilan ChangEGFR-NON AF COSTA RICAN>60Normal>=60The [facility] on above:Performed By: #### LIPID, BMP, ALT, TSH ####[facility] [address] [place], [place] [address]Dr. Yilan ChangGlucose [Mass/Vol]107 mg/dLCritically zmjb70-946Lno [facility] Comment on above:Performed By: #### LIPID, BMP, ALT, TSH ####[facility] [address] [place], [place] [address]Dr. Yilan ChangPotassium [Moles/Vol]4.0 mmol/LNormal3.5-5.1The [facility] CenterComment on above: Performed By: #### LIPID, BMP, ALT, TSH ####[facility] [address] [place], [place] [address]Dr. Yilan ChangSodium [Moles/Vol]138 mmol/L Wluumy030-491Xgf [facility] Centerment on above:Performed By: #### LIPID, BMP, ALT, TSH ####[facility] I[address] [place], [place] [address]Dr. Yilan ChangUrea nitrogen [Mass/Vol]20.0 mg/dLCritically high 7.0-18.0The [facility] CenterComment on above:Performed By: #### LIPID, BMP, ALT, TSH ####[facility] [address] [id number]. Dwight MarioUrea nitrogen/Creatinine [Mass ratio]25.0 mg/mgNormalThe [facility] CenterComment on above:Performed By: #### LIPID, BMP, ALT, TSH ####[facility] [address] [id number]. Dwight CastroPhoebe Putney Memorial [facility] [id number] [Catalytic activity/Vol]26 U/WYtplrw04-45Zzr [facility] CenterComment on above:Performed By: #### LIPID, BMP, ALT, TSH ####[facility] [address] [address]Dr. Dwight PierceHon 89-45-3726BFJ2.901 uIU/mLCritically high0.358-3.740[facility] HospitalCombeaumont hospital on above:Performed By: #### LIPID, BMP, ALT, TSH ####[facility] [address] [address]Dr. Dwight MarioMRI SHOULDER LT WO CONon 50-51-9743ERC SHOULDER LT WO CONEXAM: MRI SHOULDER LT [...] Electronically authenticated by: YOVANA COTTRELL Date: 2021-10-03 15:02[facility] Vital Signs Date TimeVital SignValuePerforming GrvdyxplxBylvdbgy43-41-3112 10:56-0500Body elhfec260.94 cmBenjamin Ball DO Work Phone: [facility]11-10-2025 10:56-0500 Body mass index (BMI) [Ratio]30.2 kg/s4Kkuiqzye Ball DO Work Phone: [facility]11-10-2025 10:56-0500 Body traogc89.57 kgBenjamin Ball DO Work Phone: [facility]10-13-2025 09:14-0400 Body mass index (BMI) [Ratio]31.28 kg/m2Charito Vasquez MD Work Phone: noms Nxfuflxglk69-83-3890 09:14-0400Body sguwpv68.56 kgTomarco Vasquez MD Work Phone: [facility]oms Emgbghguvw58-66-8476 09:52-0400Body .94 cmBenjamin Ball DO Work Phone: [phone]10-07-2025 09:52-0400 Body mass index (BMI) [Ratio]32.1 kg/y2Keunxucd Ball DO Work Phone: [phone]49[facility]10-07-2025 09:52-0400 Body sohuta09.11 kgBenjamin Ball DO Work Phone: [phone] [place], [place] [address]10-07-2025 09:52-0400 Diastolic blood zxrnyjgg70 mm[Hg]Andrea Ball DO Work Phone: [phone]10-07-2025 09:52-0400 Heart rate97 /minBenjamin Ball DO Work Phone: [phone]10-07-2025 09:52-0400 Respiratory rate12 /minBenjamin Ball DO Work Phone: [phone] [place], [place] [address]10-07-2025 09:52-0400 Systolic blood emmlctwd208 mm[Hg]Andrea Ball DO Work Phone: [phone] [place], [place] 26[address]605-21-2025 14:20-0400 Blood Pressure LocationMojovan Nettles [phone]-XnkbzSamaritan Hospital05-21-2025 14:20-0400Diastolic blood khqeptgg51 mm[Hg]Del Nettles [phone]-VkhqbSamaritan Hospital05-21-2025 14:20-0400Heart rate82 /minAnumad Mojerelli 720-4615Txcjye-KyymeSamaritan Hospital05-21-2025 14:20-0400Respiratory rate14 /minMohamad Mouchli [phone]-GkdefSamaritan Hospital05-21-2025 14:20-0400Systolic blood lvxpiord899 mm[Hg]Del Nettles 565-8749Unyguq-PogbkSamaritan Hospital04-28-2025 15:50-0400Diastolic blood vccevyfg80 mm[Hg]Kasey Fallon MD Work Phone: [facility]04-28-2025 15:50-0400Heart rate68 /min Kasey Fallon MD Work Phone: [facility]04-28-2025 15:50-0370EyS0% (BldA) [Mass fraction]94 %Kasey Fallon MD Work Phone: [phone]04-28-2025 15:50-0400Systolic blood yetmmybj252 mm[Hg]Kasey Fallon MD Work Phone: [phone]04-28-2025 15:20-0400Body temperature 97.7 [degF]Kasey Fallon MD Work Phone: [phone]04-28-2025 15:20-0400Respiratory rate 18 /minSsalvador Fallon MD Work Phone: [phone]04-28-2025 12:52-0400Body iblmjg524 cm Kasey Fallon MD Work Phone: [phone]04-28-2025 12:52-0400Body mass index (BMI) [Ratio]29.23 kg/u9ZoojautKasey Fallon MD Work Phone: [facility]04-28-2025 12:52-0400Body .84 kgKasey Fallon MD Work Phone: [phone]03-18-2025 10:08-0400Heart rate75 /min [facility]03-18-2025 10:08-1036AeW5% (BldA) [Mass fraction]97 %[facility]03-18-2025 10:08-0400 Diastolic blood mm[Hg][facility]03-18-2025 10:08-0400Mean blood tjbrvroj21 mm[Hg][facility]03-18-2025 10:08-0400 Systolic blood mm[Hg]Asuncion Lue [address] [place], [place] [address]3-18-2025 09:13-0400Heart rate73 /minKathy Lue [address] [place], [place] [address]3-18-2025 09:13-1852CdR2% (BldA) [Mass fraction]95 %Asuncion Lue [address] [place], [place] [address]3-18-2025 09:13-0400 Diastolic blood urmwrlfr55 mm[Hg][facility]03-18-2025 09:13-0400Mean blood mm[Hg][facility]03-18-2025 09:13-0400 Systolic blood olmjprxy192 mm[Hg][facility]03-18-2025 09:03-0400Blood Pressure LocationKathy Lue [facility]03-18-2025 09:03-0400Body qhdoxauqnsc68.7 [degF]Asuncion Lue [address] [place], [place] [address]3-18-2025 09:03-0400 Diastolic blood ytypqcyv96 mm[Hg][facility]03-18-2025 09:03-0400Heart rate64 /minKathy Lue [address] [place], [place] [address]3-18-2025 09:03-0400Mean blood fafaggjy82 mm[Hg]Asuncion Lue [address] [place], [place] [address]3-18-2025 09:03-0400 Respiratory rate16 /minKathy Lue [facility]03-18-2025 09:03-2748AbC8% (BldA) [Mass fraction]96 %[facility]03-18-2025 09:03-0400 Systolic blood mm[Hg]Asuncion Lue [address] [place], [place] [address]3-18-2025 08:51-0400Blood Pressure LocationKathy Lue [address] [place], [place] [address]3-18-2025 08:51-0400Mean blood oheidjma56 mm[Hg][facility]03-18-2025 08:51-0400 Respiratory rate10 /minKathy [facility]ue [facility]03-18-2025 08:46-0400Blood Pressure LocationKathy Lue [facility]03-18-2025 08:46-0400Mean blood xihxxgwx69 mm[Hg][facility]03-18-2025 08:46-0400 Respiratory rate9 /minKathy Lue [address] [place], [place] [address]3-18-2025 08:36-0400Body fndphjkowyf36.52 [degF]Asuncion Lue [address] [place], [place] 7[address]303-18-2025 08:30-0400 Respiratory rate17 /minKathy [facility]ue [facility]03-18-2025 08:25-0400 Respiratory rate12 /minKathy [facility]ue [facility]03-18-2025 08:20-0400 Respiratory rate20 /minKathy [facility]ue [facility]03-18-2025 06:36-0400Mean blood kjnoydnz87 mm[Hg][facility]03-18-2025 06:36-0400Heart rate62 /minKathy Lue [facility]03-18-2025 06:35-0400Body netkjgrfvzo13.7 [degF]Asuncion Lue [address] [place], [place] [address]3-05-2025 07:38-0500Blood Pressure LocationKathy Lue [address] [place], [place] [address]3-05-2025 07:38-0500 Diastolic blood lakrvkav37 mm[Hg][facility]03-05-2025 07:38-0500Heart rate80 /minKathy Lue [facility]03-05-2025 07:38-0500Mean blood ixotjoir21 mm[Hg][facility]03-05-2025 07:38-0500 Systolic blood mm[Hg][facility]03-05-2025 07:37-0500Heart rate78 /minKathy Lue [facility]03-05-2025 07:37-4381JdK0% (BldA) [Mass fraction]98 %[facility]03-05-2025 07:37-0500 Respiratory rate18 /minKathy Lue [facility]03-05-2025 07:36-0500Blood Pressure LocationKathy Lue [facility]03-05-2025 07:36-0500 Diastolic blood cnsycgfu71 mm[Hg][facility]03-05-2025 07:36-0500Mean blood gkhtvvoa579 mm[Hg][facility]03-05-2025 07:36-0500 Systolic blood lcmzxeyc221 mm[Hg][facility]02-13-2025 09:01-0500Body npedih796.5 cmTraisa Vasquez MD Work Phone: [facility] HospitalRqxjsjohxh24-76-2287 09:01-0500Body mass index (BMI) [Ratio]30 kg/m2Tomarco Vasquez MD Work Phone: [facility] HospitalRlixlbtyim48-89-0614 09:01-0500Body asvgib81.39 kgTomarco Vasquez MD Work Phone: noSSM Health CareUscujxxxnb56-30-6893 10:50-0500Blood Pressure LocationKathy Lue [facility]02-05-2025 10:50-0500Diastolic blood bvxydvze55 mm[Hg][facility]02-05-2025 10:50-0500Heart rate68 /minKathy Lue [facility]02-05-2025 10:50-0500Systolic blood dwbrytab878 mm[Hg][facility] Lue [facility]01-30-2025 10:59-0500Body mass index (BMI) [Ratio]30 kg/k6Hmokpyjo Rinkes DO Work Phone: [facility] HospitalMggmrqsiul14-89-3197 10:59-0500Body lzxouo29.39 kgKathleen Rinkes DO Work Phone: [facility] HospitalEvioquutxr32-03-6442 10:59-0500Diastolic blood npizbtje65 mm[Hg]Madison Rinkes DO Work Phone: [facility] HospitalQymjonklbl04-00-6193 10:59-0500Systolic blood pbrwzfal207 mm[Hg]Madison Rinkes DO Work Phone: [phone] HospitalDxqxkmkstf46-86-7284 12:01-0500Heart rate77 /min [facility]01-21-2025 12:01-4813JtF3% (BldA) [Mass fraction]95 %[facility]01-21-2025 12:01-0500 Diastolic blood ijgjhqah89 mm[Hg][facility]01-21-2025 12:01-0500Mean blood pabvcqap479 mm[Hg][facility]01-21-2025 12:01-0500 Systolic blood jekodmcw628 mm[Hg][facility]01-21-2025 12:01-0500 Respiratory rate16 /minKathy Lue [facility]01-21-2025 11:07-0500Heart rate64 /minKathy Lue [facility]01-21-2025 11:07-2255IvF9% (BldA) [Mass fraction]97 %[facility]01-21-2025 11:05-0500 Respiratory rate16 /minKathy Lue [facility]01-21-2025 11:05-0500 Diastolic blood qotiadnl07 mm[Hg][facility]01-21-2025 11:05-0500Mean blood zxwowhej29 mm[Hg][facility]01-21-2025 11:05-0500 Systolic blood xwglxlay186 mm[Hg]Asuncion Lue [address] [place], [place] [address]1001-21-2025 10:48-0500Body fqffdengdrw98.7 [degF]Asuncion Lue [address] [place], [place] [address]-21-2025 10:48-0500 Diastolic blood cfuxjagy18 mm[Hg][facility]01-21-2025 10:48-0500Heart rate63 /minKathy Lue [facility]01-21-2025 10:48-0500Mean blood ibbcjzvj910 mm[Hg][facility]01-21-2025 10:48-0500 Respiratory rate21 /minKathy Lue [facility]01-21-2025 10:48-0500ImW1% (BldA) [Mass fraction]97 %[facility]01-21-2025 10:48-0500 Systolic blood opitcpaw007 mm[Hg][facility]01-21-2025 10:35-0500Mean blood giewydex23 mm[Hg][facility]01-21-2025 10:35-0500 Respiratory rate12 /minKathy Lue [address] [place], [place] [address]1001-21-2025 10:30-0500Mean blood izothuxp54 mm[Hg]Asuncion Lue [address] [place], [place] [address]461001-21-2025 10:30-0500 Respiratory rate10 /minKathy Lue [address] [place], [place] 9461001-21-2025 10:23-0500Blood Pressure LocationKathy Lue [address] [place], [place] [address]461001-21-2025 10:23-0500Body bocknhgrahl40.52 [degF]Asuncion Lue [address] [place], [place] [address]461001-21-2025 10:15-0500 Respiratory rate3 /minKathy Lue [address] [place], [place] 9461001-21-2025 07:38-0500Mean blood vbxisfps29 mm[Hg]Asuncion Lue [address] [place], [place] 9461001-07-2025 07:32-0500Blood Pressure LocationKathy Lue [address] [place], [place] 9461001-07-2025 07:32-0500 Diastolic blood mm[Hg]Asuncion Lue [address] [place], [place] [address]461001-07-2025 07:32-0500Heart rate87 /minKathy [facility]ue [facility]01-07-2025 07:32-0500Mean blood mgbtgydo156 mm[Hg]Asuncion Lue [address] [place], [place] [address]461001-07-2025 07:32-0500 Systolic blood mnuhemfn727 mm[Hg]Asuncion Lue [address] [place], [place] 737[address]01-07-2025 07:32-0500Heart rate85 /minKathy Lue [address] [place], [place] 9461001-07-2025 07:32-3357IlX8% (BldA) [Mass fraction]98 %[facility]01-07-2025 07:32-0500 Respiratory rate18 /minKathy Lue [facility]01-07-2025 07:32-0500Blood Pressure LocationKathy Lue [facility]01-07-2025 07:32-0500 Diastolic blood jllyotui37 mm[Hg][facility]01-07-2025 07:32-0500Mean blood mm[Hg][facility]01-07-2025 07:32-0500 Systolic blood jgibuhcg720 mm[Hg][facility]11-20-2024 11:04-0500Blood Pressure LocationKathy Lue [facility] [facility]2024 11:04-0500Diastolic blood lscoxtgg12 mm[Hg][facility]11-20-2024 11:04-0500Heart rate60 /minKathy Lue [facility]11-20-2024 11:04-0500Systolic blood veyhoxbv79 mm[Hg][facility]11-20-2024 08:33-0500Body otmmba873.[address] [facility]-2024 08:33-0500Body mass index (BMI) [Ratio]31.6 kg/j6AfpezqrgfUniversity Hospitals St. [facility]11-20-2024 08:33-0500Body fvwroo48.[address] [facility]11-20-2024 08:33-0500Diastolic blood ugbvwmnd12 mm[Hg][facility]11-20-2024 08:33-0500Heart rate73 /minUniversity [facility]11-20-2024 08:33-0500Respiratory rate12 /[facility]11-20-2024 08:33-0500Systolic blood iqtkrlbj122 mm[Hg][facility]10-11-2024 14:40-0400Body jreeei927.5 cmSsalvador Fallon MD Work Phone: [facility]10-11-2024 14:40-0400Body mass index (BMI) [Ratio]30.36 kg/g0OjsavqcKasey Fallon MD Work Phone: [phone]10-11-2024 14:40-0400Body temperature 98.29 [degF]Kasey Fallon MD Work Phone: [phone]10-11-2024 14:40-0400Body kltcyb06.3 kgKasey Fallon MD Work Phone: [phone]10-11-2024 14:40-0400Diastolic blood zneqaflw74 mm[Hg]Kasey Fallon MD Work Phone: [phone]10-11-2024 14:40-0400Heart rate68 /min Kasey Fallon MD Work Phone: [phone]10-11-2024 14:40-2515RiK9% (BldA) [Mass fraction]95 %Kasey Fallon MD Work Phone: [phone]10-11-2024 14:40-0400Systolic blood qpcesbab094 mm[Hg]Kasey Fallon MD Work Phone: [facility]06-29-2024 09:32-0400Body cm Jhonny Maher MD Work Phone: [facility]06-29-2024 09:32-0400 Body mass index (BMI) [Ratio]28.71 kg/n8LmtxdlsJhonny Maher MD Work Phone: [facility]06-29-2024 09:32-0400 Body uehlff99.53 kgJhonny Maher MD Work Phone: [facility]06-04-2024 15:47-0400 Body kwlxuq938.[address] [facility]06-04-2024 15:47-0400Body mass index (BMI) [Ratio]29.7 kg/a4IkhbmxcowUniversity Hospitals St. [facility]06-04-2024 15:47-0400Body ikrnunxkijq53.5 [degF][facility]06-04-2024 15:47-0400Body .[address] [facility]06-04-2024 15:47-0400Diastolic blood ebvhaqsk82 mm[Hg][facility] 08-20-2023 15:47-0400Heart rate88 /[facility] 08-20-2023 15:47-0400Respiratory rate18 /[facility] 08-20-2023 15:47-8487OgH3% (BldA) [Mass fraction]94 %[facility]06-04-2024 15:47-0400Systolic blood mm[Hg][facility]05-30-2024 08:14-0400Blood Pressure Trino Nettles 301-3472Vbldbt-SqhiqSam[facility]itan [facility]05-30-2024 08:14-0400Diastolic blood goufangy93 mm[Hg]Del Nettles [phone]-TnpmpSamaritan Hospital05-30-2024 08:14-0400Heart rate80 /Otis Nettles [phone]-ElgnfSamaritan Hospital05-30-2024 08:14-0400Respiratory rate16 /Otis Nettles [phone]-KbyjpSamaritan Hospital05-30-2024 08:14-0400Systolic blood cfojptme943 mm[Hg]Del Nettles [phone]-ZrntpSamaritan Hospital04-05-2024 14:42-0400Body czyqrm568.[address] [facility]04-05-2024 14:42-0400Body mass index (BMI) [Ratio]29.3 kg/k6GqzwknvquUniversity Hospitals St. [facility]04-05-2024 14:42-0400Body jewtjn21.[address] [facility] 06-21-2023 14:42-0400Diastolic blood wubyngzk09 mm[Hg][facility]04-05-2024 14:42-0400Heart rate81 /[facility] 06-21-2023 14:42-0400Respiratory rate20 /[facility] 06-21-2023 14:42-1873IiB2% (BldA) [Mass fraction]98 %[facility]04-05-2024 14:42-0400Systolic blood emsemuzi175 mm[Hg][facility]03-14-2024 08:08-0400Blood Pressure LocationDel Nettles [phone]-GtcfsSamaritan Hospital03-14-2024 08:08-0400Diastolic blood freqlyaa44 mm[Hg]Del Nettles 357-9404Pvjruq-OzhdzSamaritan Hospital03-14-2024 08:08-0400Heart rate80 /minDel Nettles [phone]-PvqatSamaritan Hospital03-14-2024 08:08-0400Respiratory rate16 /minDel Nettles [phone]-IqvcaSamaritan Hospital03-14-2024 08:08-0400Systolic blood iglluigx760 mm[Hg]Del Nettles 388-6752Klurod-QtpstSamaritan Hospital03-06-2024 09:15-0500Diastolic blood vouoygoq53 mm[Hg]Mohliud Antonuchli [address] [place], [place] 9721903-06-2024 09:15-0500Heart rate62 /minMohamad Mouchli [address] [place], [place] 9721903-06-2024 09:15-0500Mean blood vyrcawwj30 mm[Hg]Mohliud Antonuchli [address] [place], [place] 9721903-06-2024 09:15-0500 Respiratory rate19 /minMohamad Mouchli [address] [place], [place] 9721903-06-2024 09:15-5853IlY8% (BldA) [Mass fraction]96 %Mohkp Waltonuchli [address] [place], [place] 9721903-06-2024 09:15-0500 Systolic blood teontwvo014 mm[Hg]Del Espinosali [address] [place], [place] 9721903-06-2024 09:05-0500 Diastolic blood qpeyxojh69 mm[Hg]Mohamad Antonuchli [address] [place], [place] 9721903-06-2024 09:05-0500Heart rate65 /minMohamad Mouchli [address] [place], [place] 3103203-06-2024 09:05-0500Mean blood xczmhoik76 mm[Hg]Haid Antonuchli [address] [place], [place] 9721903-06-2024 09:05-0500 Respiratory rate10 /minMohamad Mouchli [address] [place], [place] 9721903-06-2024 09:05-5377VpH4% (BldA) [Mass fraction]95 %Mohamad Mouchli [address] [place], [place] 9721903-06-2024 09:05-0500 Systolic blood leshqsla702 mm[Hg]Mohliud Mouchli [address] [place], [place] 9721903-06-2024 09:00-0500 Diastolic blood mpzwcwir10 mm[Hg]Mohamad Mouchli [address] [place], [place] 9721903-06-2024 09:00-0500Heart rate66 /minMohamad Mouchli [address] [place], [place] 3103203-06-2024 09:00-0500 Respiratory rate15 /minMohamad Mouchli [address] [place], [place] 9721903-06-2024 09:00-0032OnG2% (BldA) [Mass fraction]99 %Hairichard Mouchli [address] [place], [place] 9721903-06-2024 09:00-0500 Systolic blood qrduormw801 mm[Hg]Haid Mouchli [address] [place], [place] 9721903-06-2024 08:50-0500Body dhjrjfotitm48.52 [degF]Lucieamad Mouchli [address] [place], [place] 9721903-06-2024 08:45-0500 Respiratory rate24 /minMohamad Mouchli [address] [place], [place] 9721903-06-2024 08:40-0500 Respiratory rate24 /minMohamad Mouchli [address] [place], [place] 3103203-06-2024 08:35-0500 Respiratory rate22 /minMohamad Mouchli [address] [place], [place] 9721903-06-2024 07:14-0500Blood Pressure LocationMohamad Mouchli [address] [place], [place] 9721903-06-2024 07:14-0500Body hjwpjyzyjet31.88 [degF]Lucieamad Antonuchli [address] [place], [place] 972[address]02-27-2024 12:52-0500Blood Pressure LocationMohamad Mouchli [phone]-TdwviSamaritan Hospital02-27-2024 12:52-0500Diastolic blood mm[Hg]Mohamad Mouchli [phone]-GgcosSamaritan Hospital02-27-2024 12:52-0500Heart rate89 /minMohamad Mouchli [phone]-FlhzzSamaritan Hospital02-27-2024 12:52-0500Respiratory rate16 /minMohamad Mouchli 145-0368Gcnzlw-SgnlsSamaritan Hospital02-27-2024 12:52-0500Systolic blood qbmindgb098 mm[Hg]Haid Antonuchli [phone]-SlellSamaritan Hospital01-30-2024 09:00-0500Body xwiqvj470.94 cmBenjamin Ball Other [facility]01-30-2024 09:00-0500 Body mass index (BMI) [Ratio]30.12 kg/j2Yjmigpif Ball Other [facility] [employer] Other 01-30-2024 09:00-0500Body kgsyrs22.3 kgBenjamin Ball Other [facility]01-30-2024 09:00-0500 Diastolic blood fikyisdd02 mm[Hg]Andrea Ball Other [facility]01-30-2024 09:00-0500 Respiratory rate20 /minBenjamin Ball Other [facility] [employer] Other 01-30-2024 09:00-3481VsB6% (BldA) [Mass fraction]95 % Andrea Ball [facility] [employer] Other 01-30-2024 09:00-0500Systolic blood uyzznfsp318 mm[Hg] Andrea Ball Other [facility]12-04-2023 11:45-0500 Body abhskm221.94 cmBenjamin Ball Other [employer] Other [id number] 11:45-0500Body mass index (BMI) [Ratio]29.4 kg/j5Iuljmafp Ball Other [employer] Other 12-04-2023 11:45-0500Body .58 kgBenjamin Ball Other [employer] Other 512638-62-0216 11:45-0500Diastolic blood fmipmtpe39 mm[Hg] Andrea Ball Other [employer] Other 253093-13-3608 11:45-0500Respiratory rate12 /minBenjamin Ball Other [employer] Other 12-04-2023 11:45-7460PpT3% (BldA) [Mass fraction]98 % Andrea Ball Other [employer] Other 12-04-2023 11:45-0500Systolic blood jhnelpui482 mm[Hg] Andrea Ball Other [employer] Other 11-10-2023 08:30-0500Body fowwdf100.94 cmBenjamin Ball Other [employer] Other 11-10-2023 08:30-0500Body mass index (BMI) [Ratio] 29.59 kg/m4Agzpsvfu Ball Other [employer] Other 11-10-2023 08:30-0500Body uipvtu88.03 kgBenjamin Ball Other [employer] Other 11-10-2023 08:30-0500Diastolic blood kseebpbo17 mm[Hg] Andrea Ball Other [employer] Other 11-10-2023 08:30-0500Respiratory rate12 /minBenjamin Ball Other [employer] Other 11-10-2023 08:30-0500Systolic blood deubivqj001 mm[Hg] Andrea Ball Other [employer] Other 09-27-2023 13:45-0400Body rgdwej699.94 cmBenjamin Ball Other [employer] Other 09-27-2023 13:45-0400Body mass index (BMI) [Ratio] 29.36 kg/w8Xwriohdt Ball Other [employer] Other 09-27-2023 13:45-0400Body .49 kgBenjamin Ball Other [employer] Other 09-27-2023 13:45-0400Diastolic blood fexxuzmw26 mm[Hg] Andrea Ball Other [employer] Other 09-27-2023 13:45-0400Respiratory rate12 /minBenjamin Ball Other [employer] Other 09-27-2023 13:45-5627QqX8% (BldA) [Mass fraction]98 % Andrea Ball Other [employer] Other 09-27-2023 13:45-0400Systolic blood sddtwjfy727 mm[Hg] Andrea Ball Other [employer] Other 08-17-2023 15:05-0400Body gxapky000.94 cmAmbsandro Webster Other [employer] Other 08-17-2023 15:05-0400Body mass index (BMI) [Ratio] 28.34 kg/t4WsmfvShannan Webster Other [employer] Other 08-17-2023 15:05-0400Body ggbfrbeohgv54.2 [degF]Shannan Webster Other [employer] Other 08-17-2023 15:05-0400Body .04 kgShannan Webster Other [employer] Other 08-17-2023 15:05-0400Diastolic blood htobhrwa16 mm[Hg] Shannan Webster Other [employer] Other 08-17-2023 15:05-0400Respiratory rate18 /minAmbsandro Webster Other [employer] Other 08-17-2023 15:05-0887RqT2% (BldA) [Mass fraction]99 % Shannan Webster Other [employer] Other 08-17-2023 15:05-0400Systolic blood mm[Hg] Shannan Webster Other [employer] Other 12-19-2022 15:00-0500Body kdqjpy563.56 cmLuma Chirinos Other [employer] Other [id number] 09:55-0400Blood Pressure LocationKathy Lue [facility]09-16-2022 09:55-0400Diastolic blood msxmruoe90 mm[Hg]Asuncion Lue [facility]09-16-2022 09:55-0400Heart rate81 /minKathy Lue [facility]09-16-2022 09:55-0400Systolic blood ohsfvcvg053 mm[Hg]Asuncion Lue [facility]2022 10:15-0400Body yzqipl788.56 cmThomas Olexa Other [employer] Other 2022 10:15-0400Body mass index (BMI) [Ratio] 24.89 kg/c2Pdvcyi Olexa Other [employer] Other 2022 10:15-0400Body hainmk69.77 kgThomas Olexa Other [employer] Other Encounters Encounter DateEncounter TypeCare ProviderFacilityStart: 01-25-2025 End: 13-56-8942reihwgkuxlVbmpxfdb Ball DO Work Phone: [phone]-[facility]tge[facility] OrthopedicsStart: 01-25-2025 End: 27-93-4806Rdrdwva encounter procedureThzaina Ruiz [place]-Pending Sale To [facility] Work Phone: Start: 01-25-2025 End: 10-20-2357Kabcamt encounter procedureThzaina A Olexa MD-[facility] Start: 01-25-2025 End: 58-16-3976vjqqbchvurNgogka OlexaFacility:[facility] Start: 95-04-0454Vqm-patient / Non-visitChrissy Hector MD-[facility] Work Phone: Start: 12-28-2024 End: 68-00-7686Jxkqrw flowsheetTomarco Vasquez MD Work Phone: [facility] [place] AllergyStart: 12-28-2024 End: 32-89-2647Ypikjn flowsheetTomarco Vasquez MD Work Phone: noms [facility] AllergyStart: 12-28-2024 End: 38-78-0244Yeowfp outpatient visit 25 minutesTomarco Vasquez MD Work Phone: noms [facility] AllergyComment on above:Peripheral eosinophilia (Primary Dx); Chronic maxillary sinusitis; Cough variant asthma (HCC)Start: 12-28-2024 End: 56-20-6238mkuxvfblwaMZAR E RAMBASEKNot AvailableStart: 12-22-2024 End: 49-81-0077ldtrgbwmguQnbwpgum Ball DO Work Phone: [facility] Work Phone: Start: 12-22-2024 End: 74-92-6364Rolbyso encounter procedureBeasia Golden DO-[facility] Work Phone: Start: 12-10-2024 End: 17-45-5260ejuwfuvqjyFmjnvgc A. MouchliFacility:[facility]tart: 12-10-2024 End: 94-23-7554Vrrlqmu encounter procedureDel Nettles [phone]-QcunxMer[facility] Start: 10-29-2024 End: 09-66-7280Ywqawnrnw encounterJeanette Luther MD Work Phone: [facility] [place] OtolaryngologyComment on above:refillStart: 87-39-0252Fzp-patient / Non-visitAbe Mojica [facility] Work Phone: Start: 08-05-2024 End: 35-87-9241banddilknwVqaoalm A. 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 LueFacility:[facility] BellevueStart: 07-06-2024 End: 84-39-9062cdjtosxvbgMszeb Schmiedl RNGastroenterologyStart: 07-01-2024 End: 33-52-8491Vnuiiqgkq encounterMabeth Hong RNGastroenterologyComment on above:Education Of Patient/family; Patient Question (Message sent to referring physician regarding a substitute for Gatorade)Start: 06-02-2024 End: 72-54-9030Zvactyhiq to same day surgery Yovanny [facility] Start: 06-02-2024 End: 20-52-9902ztqpjicsowTpzqm M. LueFacility:FTMCStart: 05-22-2024 End: 17-83-0552Nnsghxmwz encounterSsalvador Fallon MD Work Phone: GastroenterologyComment on above:Patient Question Start: 05-20-2024 End: 47-28-1474tikpjyhnqqDgcip M. LueFacility:FTMCStart: 05-20-2024 End: 17-00-1258Wqcggde encounter Yun [facility] Start: 04-30-2024 End: 41-38-8102Qjjmyk flowsBailey Vasquez MD Work Phone: [facility] SWS ALLStart: 04-30-2024 End: 77-78-3721Hwgmiy flowsBailey Vasquez MD Work Phone: [facility] SWS ALLStart: 04-30-2024 End: 95-36-9481Rktuan outpatient visit 15 minutesTomarco Vasquez MD Work Phone: [facility] SWS ALLComment on above:Chronic maxillary sinusitis (Primary Dx)Start: 04-30-2024 End: 54-68-9741uuverblbruNUQK E RAMBASEKNot AvailableStart: 04-22-2024 End: 77-31-2365lrjysehcbeYkpmo M. LueFacility:EU BellevueStart: 04-22-2024 End: 31-16-0222Izyzstr encounter Yun Buchanan [facility] Tariq start: 04-16-2024 End: 33-67-3719Reenaf flowsheetKatvivek E Rinkes DO Work Phone: [phone] [facility] OBStart: 04-16-2024 End: 76-61-9565Kqsxjv flowsheetKathleen E Rinkes DO Work Phone: [facility] OBStart: 04-16-2024 End: 40-18-8180Dxipgoj encounter statusKathltomás E Rinsteve DO Work Phone: noMO HealthcareStart: 04-16-2024 End: 43-44-9635Lzwwlmqc preventive med est patient 65yrs& olderKathleen E Rinkes DO Work Phone: noms [facility] OBComment on above:Encounter for gynecological examination without abnormal finding; Screening for malignant neoplasm of cervix; Encounter for screening mammogram for breast cancer; Lichen sclerosus et atrophicus; Screening for osteoporosis; Postmenopausal status, age-relatedStart: 04-16-2024 End: 81-57-1269meijhxavyxQGUUHCJF E CLAUDENot AvailableStart: 04-08-2024 End: 03-37-8479bhgsoazlhwSrjhf M. LueFacility:EU BellevueStart: 04-08-2024 End: 74-20-3397Mdohkwl encounter procedureAsuncion Buchanan [facility] start: 04-07-2024 End: 99-74-9475Oexfijcwi to same day surgery bensenvilleAsuncion Buchanan [facility] Start: 04-07-2024 End: 82-08-7919evdpclmrxsQvjkx M. LueFacility:FTMCStart: 03-24-2024 End: 41-68-1094kgdebtigdrOcxhx M. LueFacility:FTMCStart: 03-24-2024 End: 20-64-9133Riaagcu encounter procedureAsuncion Buchanan [facility] Start: 02-24-2024 End: 20-40-0112lrwrjdusbzZeumu M. LueFacility:FTMCStart: 02-24-2024 End: 95-98-9534Ddrtccp encounter procedureAsuncion Buchanan [facility] Start: 02-05-2024 End: 21-98-6204jzyurkjkxcBrrya MJose HowardeFacility:EU BellevueStart: 02-05-2024 End: 74-10-2883Fzieaay encounter procedureAsuncion Buchanan [facility] start: 02-05-2024 End: 29-59-0038yvbgjjzahbXnjhmrmjrSycamore Medical Center Work Phone: Start: 02-05-2024 End: 17-52-4233Uhwavqa encounter procedurePsychiatric Hospital Physician Group-[facility] Work Phone: Start: 14-91-8347Pdkppss encounter procedureOhioHealth Riverside Methodist Hospitaltart: 21-59-0515Cca-patient / Non-visitPsychiatric Hospital Physician Group-[facility] Work Phone: Start: 01-29-2024 End: 45-23-9062yhegdprmgxGGRYUOJN D ZAHLERNot AvailableStart: 12-30-2023 End: 80-46-5631Nqphbl flowsheetTomarco Vasquez MD Work Phone: [facility] SWS ALLStart: 12-30-2023 End: 42-61-5285Lsxhlk flowsheetCharito Vasquez MD Work Phone: [facility] SWS ALLStart: 12-30-2023 End: 48-17-8258Pblpqg outpatient visit 15 minutesTomarco Vasquez MD Work Phone: [facility] SWS ALLComment on above:Chronic maxillary sinusitis (Primary Dx); Chronic pansinusitisStart: 12-30-2023 End: 11-80-0634bcjxiegkqaWYYUYanet Zimmerman AvailableStart: 12-27-2023 End: 06-87-3820Ohywemb encounter procedureSsalvador Fallon MD Work Phone: GastroenterologyComment on above:Iron deficiency anemia due to chronic blood loss (Primary Dx); Abnormal finding on GI tract imagingStart: 12-27-2023 End: 62-01-8885aykndmbeqoAQIJEMMB T SARMINIFacility:[facility] Start: 12-27-2023 End: 27-79-4373Yct Drop offAsuncion Buchanan [facility] Start: 12-27-2023 End: 25-24-8851eewnaurirnPhkkc M. 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] Start: 12-04-2023 End: 10-93-2677Ryavtphwk encounterSsalvador Fallon MD Work Phone: GastroenterologyComment on above:help rescheduling GI testStart: 06-87-3433Dat-patient / Non-visitFirelands Physician Group-[facility] Work Phone: Start: 11-04-2023 End: 99-80-1612wklkgvkihwZTFCPUJC J [facility] Hospitaltart: 90-18-5632Lqezpkeey encounterSsalvador Fallon MD Work Phone: GastroenterologyComment on above:Patient QuestionOther partial intestinal obstruction (HCC) (Primary Dx)Start: 16-91-7714Rxopvchwn encounterCcf ProviderGastroenterologyComment on above:ConsultStart: 10-08-2023 End: 87-78-2537bikhgxguptMWIC [facility] Hospitaltart: 09-14-2023 End: 27-05-5204Jupptv outpatient new 60 minutesJhonny Maher MD Work Phone: [facility] RehabilitationComment on above:Chronic maxillary sinusitis (Primary Dx); Chronic ethmoiditis; Chronic cough; Asthma, unspecified asthma severity, unspecified whether complicated, unspecified whether persistent ([facility]-HCC)Start: 09-14-2023 End: 94-89-7158iwabtxobirQFFIAPE D [facility] Start: 08-20-2023 End: 29-09-1508ezcusowvnhRurbjmicvThe [facility] Hospital Work Phone: Start: 08-20-2023 End: 86-66-6112Ufzpmzg encounter procedurePsychiatric Hospital Physician Group-[facility] Work Phone: Start: 08-15-2023 End: 49-43-0774liyncvdltxVnuuaqh A. MouchliFacility:JarrodHoward DHStart: 08-15-2023 End: 42-00-9795Yijrpib encounter procedureDel Nettles 050-1025Qfdrtb-NvubbMercy Health Lor[facility] Hospital [facility] Start: 07-23-2023 End: 69-88-0680Ttvvwmtof Result EncounterJeanette Luther MD Work Phone: NOEH External Department UnsolicitedStart: 07-23-2023 End: 01-95-3147Yyaxhrboe Result EncounterJeanette Luther MD Work Phone: noms External Department UnsolicitedStart: 07-23-2023 End: 17-51-2309yeldzifjfvDyduew H TimmisFacility:FTMCStart: 07-23-2023 End: 85-19-4099Birwihu encounter procedureHilary H Timmis [facility] Start: 07-17-2023 End: 13-25-1724cdtclbqxcrMvhnrbe AJose NettlesFacility:JimboHoward DHStart: 07-17-2023 End: 56-88-4534Oivgyka encounter procedureMojovan Nettles [phone]-TqunmMercy Health Lor[facility] Start: 07-05-2023 End: 08-68-8778ixsxcvdvaaZfdmbkc Donita NettlesFacility:FTMCStart: 07-05-2023 End: 27-40-2262Vdbvpeb encounter procedureMojovan Duckworth Mouchbeltran [facility] Start: 07-04-2023 End: 60-74-5899sswuejolcxWoeefcw Donita NettlesFacility:JimboElliott DHStart: 07-04-2023 End: 33-03-6276Ujanfwq encounter procedureMohamzeinab Springer. Mouchli [phone]-HvpqcMercy Health [facility] Start: 69-17-8089Zno-patient / Non-visitFirelands Physician Group-[facility] Work Phone: Start: 97-90-2741Aao-patient / Non-visitFirsaint petersburgs Physician Group-[facility] Work Phone: Start: 03-96-4042umelrbgryyKwazkku A. Mouchli Facility:[facility] DHStart: 06-21-2023 End: 11-88-7289bwqknzgjwgJxaotfzyiSycamore Medical Center Work Phone: Start: 06-21-2023 End: 12-93-9552Olncejw encounter procedurePsychiatric Hospital Physician GroupMemorial Hospital Work Phone: Start: 05-30-2023 End: 43-97-4249viyudxrytnNqrmdjq A. MouchliFacility:Hardy DHStart: 05-30-2023 End: 99-95-7878Bataafn encounter procedureMohamad A. Mouchli [id number]-KugeoMer[facility] Start: 52-36-8090Uqw-patient / Non-visitPsychiatric Hospital Physician Group-[facility] Professional Guruji Work Phone: Start: 05-22-2023 End: 71-27-5998omicvzjteaWyvbrhe A. MouchliFacility:FTMCStart: 05-22-2023 End: 82-38-2111Kzebhpx encounter procedureMohamad A. Mouchli [facility] Start: 05-14-2023 End: 63-80-9174koaajlbstlWidgioo A. MouchliFacility:[facility] DHStart: 05-14-2023 End: 93-74-0198Gvzzysy encounter procedureMohamad A. Mouchli [id number]-PzmeqMercy Health [facility] Start: 04-22-2023 End: 35-40-9736gqjezsrzmyJldxsivb Ball Other noThe [facility] Other Start: 03-39-9724Epwcul Virginia Vasquez MD Work Phone: [facility] S[facility] ALLStart: 36-36-3683Ofpnrydagoberto Vasquez MD Work Phone: [facility] ALLStart: 21-45-2203Cfbvuqlft encounter Andrea BallFPG [facility] Medical ClinicStart: 04-19-2023 End: 66-02-4465kvoeusrxzwTuvhfqtt Ball Other [employer] Other Start: 38-06-8567Oocazjqhw encounterBenjamin BallFPG [facility] Medical ClinicStart: 19-59-5114Bbfwcetvx encounterBenjamin BallFPG [facility] ClinicStart: 04-18-2023 End: 85-93-2244ztmltaqktdPeetobwc Ball Other [employer] Other Start: 04-16-2023 End: 44-67-2378fhiexqjmzfMoaauoyl Ball Other [employer] Other Start: 29-59-1959Ylsmjt outpatient visit 25 minutes Andrea BallFPG [facility] ClinicStart: 04-16-2023 End: 83-49-9879Uyecrbw encounter procedureFirelands Physician Group-Start: 04-04-2023 End: 40-77-1524jngsudubibYqkwdojl Ball Other [employer] Other Start: 24-86-5625Ssjmogwep encounterBenjamin BallFPG [facility] ClinicStart: 03-08-2023 End: 40-97-3473ugnwucywalJjjxailv Ball Other [employer] Other Start: 25-89-6142Luhoooobo encounterBenjamin BallFPG [facility] ClinicStart: 03-06-2023 End: 63-53-7660wbvxlhhhoePopkuqfy Ball Other [employer] Other Start: 79-20-0945Fxfutgcxy encounterBenjamin BallFP[facility] ClinicStart: 02-25-2023 End: 13-89-8809zvxorpzmakOhrmvnim Ball Other [employer] Other Start: 67-93-4429Dcedleslx encounterBenjamin BallFP[facility] ClinicStart: 02-20-2023 End: 32-85-2717nufhpqfonqGyvbe MJose Hullacility:EU BellevueStart: 02-20-2023 End: 55-87-6010Fcbjbmy encounter procedureAsuncion Buchanan [facility] start: 02-18-2023 End: 11-28-0653ybribkupcoUuwxoktt Ball Other [employer] Other Start: 43-37-7082Vojora outpatient visit 15 minutes Andrea [facility]FP[facility] ClinicStart: 02-05-2023 End: 18-89-3787flgnzwhfbuSstluavx Ball Other [employer] Other Start: 77-49-9582Aciyrvkcl encounterBenjamin BallFP[facility] ClinicStart: 01-31-2023 End: 82-30-9868tjvbdoveyxDqkzvhza Ball Other [employer] Other Start: 10-37-8892Cjlsgsdvp encounterBenjamin BallFP[facility] ClinicStart: 01-29-2023 End: 34-54-5081nqhiieamfeAdbkgrzr Ball Other [employer] Other Start: 83-06-3072Woaqkajbz encounterBenjamin BallFP[facility] ClinicStart: 01-25-2023 End: 01-22-2853aajelyksqbKarpngfh Ball Other [employer] Other Start: 79-27-5951Tgzcmvs encounter procedureBenjamin BallFP[facility] ClinicStart: 28-66-9448Sisgmxmdb encounterBenjamin BallFP[facility] ClinicStart: 12-12-2022 End: 99-87-7361oiiejhbxypJonqzzvn Ball Other [employer] Other Start: 32-33-7367Wzshjl outpatient visit 15 minutes Andrea [facility] ClinicStart: 11-07-2022 End: 87-85-1035hvdxbbsgrqQilascfc Ball Other [employer] Other Start: 52-22-1030Vxdudjaog encounterBenjamin BallFP[facility] ClinicStart: 11-01-2022 End: 68-54-7029ajywqzvvowAfequ Keller Other [employer] Other Start: 69-50-2283Jmwrcz outpatient visit 25 minutes Shannan KellerFPG [facility] Care ClydeStart: 06-27-2022 End: 33-69-3218fyxnjzkzflWI JEROME ESPINOSAFacility:Y9Htyyp: 06-04-2022 End: 67-45-7415thwresptjtPappsnvb Ball Other [employer] Other Start: 53-72-2312Owqevankj encounterBenjamin BallFP[facility] ClinicStart: 05-17-2022 End: 75-07-0749rwjcpdmphiYA CAMPOS ERAZOFacility:O0Uoask: 04-26-2022 End: 54-39-0544bbdllohzgvKJ JEROME ESPINOSAFacility:A9Sofwc: 04-25-2022 End: 61-56-2929xoyygkqjfwXmxkmvqv Ball Other [employer] Other Start: 00-43-3036Uxbkgvfhe encounterBenjamin BallFP[facility] ClinicStart: 04-10-2022 End: 39-55-8858lnqjufokbsQmgooqno Ball Other [employer] Other Start: 17-71-4085Xetcpofti encounterAndrea Golden Medical ClinicStart: 74-08-3557Ojtxpjtep for preprocedural cardiovascular examinationPETER D Magruder Memorial Hospitaltart: 42-83-7263Eewxdqmrx for preprocedural laboratory examinationPETER D [facility] Start: 04-06-2022 End: 15-25-3970cgjdwxzwhwClfgsjxb Ball Other [employer] Other Start: 58-80-1086Ejytxfcfq encounterAndrea Golden Medical ClinicStart: 04-05-2022 End: 23-97-7609rcqcjfuxthJM JEROME CANCINOERFacility:Y4Fpchk: 04-02-2022 End: 48-62-2121rvdhbwqezxIEBKO D [facility] HOSPITALFacility:V2Qbmhr: 04-02-2022 End: 15-51-3140Elpyzikxi for preprocedural cardiovascular examinationPETER D [facility] HOSPITALFacility:X0Kxdtw: 03-28-2022 End: 66-02-0879pmfbbjvybbQQ JEROME CANCINOERFacility:Y8Jsktr: 03-20-2022 End: 08-80-0707siaqqimmabEE ANDREA GOLDENFacility:A6Hpogh: 03-12-2022 End: 43-41-8124oaibcseoxyDQ JEROME ESPINOSAFacility:G8Coevk: 03-05-2022 End: 90-39-2923zclqcajcboAmdwincy Kearney Other [facility] Other Start: 04-80-3365Vkdkil outpatient visit 15 minutes Luma [facility] OrthopedicsStart: 01-29-2022 End: 79-97-0916taqtcmiqodSG ANDREA GOLDENFacility:T6Huuyn: 15-11-0396Eidzu health examinationAmber Darin Other [facility] [employer] Other Start: 12-01-2021 End: 88-89-6497Zmucrgb encounter procedureKatemmanuelle MJose Lubharati [facility] [place] Start: 10-10-2021 End: 48-37-4525kdviglqliaTkyrav Olexa Other [facility] [employer] Other Start: 57-99-9345Ecxbnx outpatient visit 25 minutes Espinoza Stoll [place] [facility]opedicsStart: 10-10-2021 End: 08-60-4960Vgdffri encounter procedureMD Espinoza Ruiz Work Phone: [facility] [place] [facility] Start: 10-05-2021 End: 92-29-6683edqslvqgkvOtfvra Olexa Other [facility] [employer] Other Start: 56-82-8158Nidaheqrs encounterThomas OlexaFPG [place] OrthopedicsStart: 10-02-2021 End: 46-77-4034ozsawzoqtnWZ ANDERA BALLFacility:H1 Procedures DateProcedureProcedure DetailPerforming ClinicianStart: 54-60-3613Zgwvx X-ray of left shoulderBenjamin Ball DO Work Phone: Start: 35-75-3701IR lumbar spine 6V w bendingBenjamin Ball DO Work Phone: Start: 03-08-0929Efduxdivy upper small intestine Kasey Fallon MD Work Phone: Start: 87-97-7767IjkevaapkxZdsqs Lue Start: 25-54-9284NyijxeqjwbYdnrk Lue Start: 04-87-2307CsljifvsybyHminxyyu Zahler DO Work Phone: Start: 01-29-2024 End: 87-93-6171Xjjpi medical xm&eval comprhnsv estab pt 1/>Keratoconjunctivitis sicca of both eyes not specified as Sjogren'sJalisboo Richard Lal DO Work Phone: comment on above:Keratoconjunctivitis sicca of both eyes not specified as Sjogren's (Primary Dx); Blepharitis of upper and lower eyelids of both eyes, unspecified type; Bilateral posterior capsular opacificationStart: 56-20-0567Fvjxtahdrt exam small int single contrast studyKasey Fallon MD Work Phone: Start: 39-22-0418OE MAXILLOFACIAL W/O CONTRASTHilary Elie Luther MD Work Phone: Start: 47-73-5623IfyhiudrkjgRaovefu Rodriguez MD Work Phone: Start: 95-46-0200KczevsihyngQdnlfpk Mouchli Start: 93-85-9293JjarnhewbyuyclhewqokguofxuHahvbas Mouchli Start: 17-65-5466FertalfsrtwPjiy Rambasek MD Work Phone: Start: 77-16-7390Sgawv X-ray of left shoulderMD Espinoza Ruiz Work Phone: Start: 98-99-8894UubcrpzdyfdOvoo Rambasek MD Work Phone: Start: 30-82-5733AfucfvssoniTizkl Lue Start: 99-74-3714XcrzebpdmxjjrtswulxchwduabNykbx Lue Start: 36-46-5486ChbkgjjkqbrRhdpc Lue Comment on above:normalStart: 01-16-2015 EsophagogastroduodenoscopyKathy Lue Start: 78-23-6267RrjcnlnnyydhtjahtaxoyzspnpHczyv Lue Start: 56-67-9918TvmkswciblragxrufgqdgzuuevTlzua Lue Start: 92-87-2697Badtbxlsisey cholecystectomyKathy Lue Start: 78-03-5908AjqfvjpgnlmFdaem Lue Bilateral cataracts (disorder)Asuncion Lue Cesarean sectionKathy Lue Depression screeningRubyer Darin Other Dilation and curettageKathy Lue Foot structure (body structure)Asuncion Lue History of cholecystectomyHx of cholecystectomyMohamad Mouchli Ligation of fallopian tubeKathy Lue Repair of musculotendinous cuff of shoulderKathy Lue Screening for malignant neoplasm of breastRubyer Darin Other Screening for malignant neoplasm of colonShannan Webster Other Structure of right wrist (body structure)Asuncion Lue ThyroidectomyKathy Lue Plan of Treatment DateCare ActivityDetailAuthorStart: 96-81-2998Drhdhrjzv for malignant neoplasm of colonNOMS HealthcareStart: 42-76-6392Zzpkyvlbl for malignant neoplasm of colonNOMS HealthcareStart: 05-11-2025 End: 35-43-8441Vcrwcph encounter procedureNOMS SWS OBStart: 04-29-2025 End: 76-88-6591Psgofqe encounter vkiyrlkhr12/12/2026 9:20 AM EST Office Visit [facility] [address] [place] [address] Charito Vasquez MD [address] [place] [address] NOMAnkit [facility] AllergyStart: 02-24-2025 End: 35-93-7750Xtatmiz encounter wjrkqbgid77/10/2025 10:50 AM EST Office Visit [facility] [address] [place] [id number] Janae Crane MD [address] [place] [address] NOMAnkit [facility] DermatologyStart: 02-02-2025 Screening for malignant neoplasm of breastMammogramNOMO HealthcareStart: 02-02-2025 End: 33-67-5592Kexemxv encounter procedureNOMS NB OPHTStart: 18-62-8467Uhnls X- ray of left shoulderXR shoulder LT min 2V*[facility] Start: 29-33-3077ZG Shoulder - left ViewsOhioHealth Riverside Methodist Hospitaltart: 12-28-2024 End: 14-03-7394Mnlvkpr encounter procedureNOMS SWS ALLComment on above:Arrived Start: 71-75-9804Gbvwskykd vaccinationInfluenza Vaccine (#1)[facility] Start: 30-99-7385Jdaqr-19 Vaccine ( season)Covid-19 Vaccine ( season)[facility]tart: 07-13-2024 End: 27-20-7042Icnbnqz encounter efgcxvsbh05/28/2025 1:00 PM EDT Appointment Gastroenterology [address] [phone] Kasey Fallon MD [facility] [address] [address] Iron deficiency anemia due to chronic blood loss [D50.0]GastroenterologyComment on above:Iron deficiency anemia due to chronic blood loss [D50.0]Start: 04-30-2024 End: 67-10-0272Uohyvsf encounter procedureNOMS [facility] ALLComment on above:Arrived Start: 04-16-2024 End: 92-24-1861Bxumzsx encounter luszmgrne69/30/2025 10:30 AM EST Office Visit [facility] [address] [place] [phone] Madison Burns, DO [address] [place] [address] Encounter for gynecological examination without abnormal finding; Screening for malignant neoplasm of cervix; Encounter for screening mammogram for breast cancer; Lichen sclerosus et atrophicusNOMS [facility] OBComment on above:Encounter for gynecological examination without abnormal finding; Screening for malignant neoplasm of cervix; Encounter for screening mammogram for breast cancer; Lichen sclerosus et atrophicusStart: 04-08-2024 End: 85-86-4233Hkzxnhb encounter /22/2025 9:45 AM EST Office Visit [facility] [address] [place] [address] Madison Burns, DO [address] [place] [address] NOMAnkit [facility] OBStart: 88-08-4760Fvmqgap Directive Discussion Advance Directive DiscussionSouth Roxana ClinicStart: 39-07-5075Cqavpiffp for malignant neoplasm of breastMammogramNOMS HealthcareStart: 01-29-2024 End: 16-38-0377Qnjrdpl encounter uhasrbkwr31/13/2024 8:15 AM EST Office Visit [facility] [address] [place] [phone] Marsha Lal, [address] [place] [address] NOMS BLESSING OPHTStart: 01-20-2024 End: 19-86-6344Ohtdruk encounter ueccsngwt99/04/2024 8:15 AM EST Office Visit [facility] [address] [place] [phone] Marsha Lal DO [address] [place] [address] NOMS NB OPHTStart: 12-30-2023 End: 46-54-0931Rhwcwen encounter laycthdqg90/14/2024 9:20 AM EDT Office Visit [facility] ALL [address] [place] [address] Charito Vasquez MD [address] [place] [address] ArrivedNOMS SWS ALLComment on above:ArrivedStart: 12-27-2023 End: 54-42-7129Jmntile encounter gjswnglwe50/11/2024 4:30 PM EDT Office Visit Gastroenterology [address] [phone] Kasey Fallon MD [facility] [address] [place], [place] [phone] New Patient consult 30min- Double Balloon GastroenterologyComment on above:New Patient consult 30min- Double BalloonStart: 12-27-2023 End: 41-28-2015Nujocfe encounter qckjtglyw84/11/2024 9:40 AM EDT Appointment Radiology [address] [place] [address] Otherpartial intestinal obstruction (HCC) [K56.690]RadiologyComment on above: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]Start: 63-51-7559Kpcuf-19 Vaccine ()Covid-19 Vaccine ( season)[facility] Hospitaltart: 05-77-5379Kquwb-19 Vaccine ()Covid-19 Vaccine ()[facility] Hospitaltart: 32-64-7257Lhnpmbcky vaccinationInfluenza Vaccine (#1)[facility] Hospitaltart: 10-31-2023 End: 76-99-8003QQEINKUDYA BLDCREATININE BLD Lab Routine Other partial intestinal obstruction (HCC) Expected: 10/31/2023, Ex[facility] Comment on above:Expected: 10/31/2023, Expires: 01/30/2024Start: 10-08-2023 End: 67-58-8859Prbtbdf encounter eldlumitn05/23/2024 9:45 AM EDT Office Visit [email or web address] [address] [place] [address] [place] [address] [facility] Department [place] [address] [facility]: 47-38-5633IQLKC-19 Vaccine ()COVID-19 Vaccine ()[facility] CenterStart: 04-22-2023 End: 70-81-5371Hejudng encounter tgbxahiik73/05/2024 11:00 AM EST Office Visit [facility] [address] [facility] [address] [place] [phone] Charito Vasquez MD [address] [address] ArrivedNOMS SWS ALLComment on above:ArrivedStart: 88-97-9856Zdupxkw Directive DiscussionAdvance Directive DiscussionCleProtestant Deaconess Hospitaltart: 18-68-7724Krnqhmrib for malignant neoplasm of breastMammogram ScreeningHarrison Community Hospitaltart: 66-97-8452Aaakc-19 Vaccine ( season) Covid-19 Vaccine ( season)[facility]: 05-01-2018Medicare Annual Wellness VisitMedicare Annual Wellness VisitHarrison Community Hospitaltart: 28-23-0801PLW Vaccine (1 - 1-dose 60+ series)RSV Vaccine (1 - 1-dose 60+ series) [facility]: 78-64-8414Tdrltiyf Vaccine (1 of 2)Shingrix Vaccine (1 of 2)[facility]: 65-91-8811Ktfbss Vaccines (1 of 2)Zoster Vaccines (1 of 2)[facility]: 45-10-3174Lfuoeuyb Screening Diabetes ScreeningHarrison Community Hospitaltart: 82-80-4836Trcmn panelLipid Screening [facility]tart: 53-60-9763Tncggdxlf for malignant neoplasm of colon [facility] Hospitaltart: 74-94-0549DWpV/Tdap/Td Vaccines (1 - Tdap)DTaP/Tdap/Td Vaccines (1 - Tdap)[facility]: 03-93-6280Syvyv microalbumin profileDTaP,Tdap,Td Vaccine (1 - Tdap)[facility]: 06-53-7979Dwocffe ScreeningAnxiety ScreeningOhio State Harding Hospitalrt: 1970 Depression ScreeningDepression ScreeningOhio State Harding Hospitalrt: 1970 Hepatitis C screeningHepatitis C ScreeningOhio State Harding Hospitalrt: 35-85-2631Wrzvv panelLipid PanelUnMercy Health [facility]: 05-11-1953Medicare Annual Wellness VisitMedicare Annual Wellness Visit (AWV)[facility]: 69-75-6810Ktfjtpabh for malignant neoplasm of colonJefferson Memorial HospitalStart: 84-88-8569Knkxljp stimulating hormone measurementTSH Level [facility] End: 42-50-4187RBW W Auto Differential panel - BloodCBC and differential Lab Routine Peripheral eosinophilia 12 Occurrences starting 12/28/2024 until [facility] Work Phone: Comment on above:12 Occurrences starting 12/28/2024 until 12/28/2025 End: 56-06-4764VU Small bowel W contrast PO and W contrast IVCT ENTEROGRAPHY W IVCON Radiology Routine Other partial intestinal obstruction (HCC) 1 Occurrences starting 10/31/2023 until 11/29/2024[facility] Work Phone: Comment on above:1 Occurrences starting 10/31/2023 until 11/29/2024DBT Breast - bilateral screeningBilateral screening mammogram with tomosynthesis Imaging Routine Encounter for screening mammogram for breast cancer Ordered: 04/16/2024NOMO HealthcareComment on above:Ordered: 04/16/2024DXA Skeletal system Views for bone densityDEXA bone density Imaging Routine Screening for osteoporosis Postmenopausal status, age-related Ordered: 04/16/2024NOMO HealthcareComment on above:Ordered: 04/16/2024 End: 03-98-5493TAKEMQEKMGLBTAHEKWNRWS Endoscopy Routine Iron deficiency anemia due to chronic blood loss Abnormal finding on GI tract imaging 1 Occurrences starting 12/27/2023 until 12/26/2024[facility] Work Phone: Comment on above:1 Occurrences starting 12/27/2023 until 12/26/2024IGP, RFX APTIMA HPV ASCUIGP, RFX APTIMA HPV ASCU Lab Routine Screening for malignant neoplasm of cervix Ordered: 04/16/2024[facility] Work Phone: comment on above:Ordered: 04/16/2024Patient Education Low back pain in adultsFirelands Regional Medical Center Work Phone: Tissue Pathology biopsy reportRegional Medical Center Work Phone: Comment on above:Release Upon Ordering for 1 Occurrences starting 07/13/2024, 1 completedXR Lumbar spine ViewsUniversity Hospitals St. [facility] Immunizations Immunization DateImmunizationNotesCare DsistqonKcwppgdm31-23-9268lnuhkrlsc virus vaccine, unspecified formulationMojovan Nettles [facility]10-16-2023Flu Shot - Documentation Purposes OnlyBenjamin Ball Other [facility]10-16-2023influenza virus vaccine, unspecified formulationKathy Lue [facility]10-16-2023respiratory syncytial virus (RSV) vaccine, adjuvanted (AREXVY) Kasey Fallon MD Work Phone: [facility] HospitalGihczu29-90-2992BWIS-SfS-0 (COVID-19) mRNAMUL.ORD![id number] Lue [facility]10-03-2022influenza (HD-IIV4) vaccine, age 65+ yr, high dose, quadrivalent, PF (FLUZONE HIGH-DOSE)Kasey Fallon MD Work Phone: [facility] HospitalNyjqpo73-62-2071hmjbadriv virus vaccine, split virus (incl. purified surface antigen)Shannan Webster Other [employer] Other 1575823-68-8765xtksqyggk virus vaccine, unspecified formulationKathy Lue [facility]04-19-2022SARS-CoV-2 (COVID-19) mRNA-1273 vaccineKathy Lue [facility] [place] 865221-08-2021SARS-CoV-2 (COVID-19) mRNA-7343 vaccineKathy Lue [facility]09-08-2021influenza (aIIV4) vaccine, age 65+ yr, quadrivalent, PF (FLUAD QUAD)Kasey Fallon MD Work Phone: [facility] HospitalZqpyuw73-74-9475rvgrvudug virus vaccine, split virus (incl. purified surface antigen)Shannan Webster Other [employer] Other 408754-99-6360yxhbyyvyh virus vaccine, unspecified formulationKathy Lue [facility]03-18-2021SARS-CoV-2 (COVID-19) mRNA-1272 vaccineKathy Lue [facility]02-18-2021SARS-CoV-2 (COVID-19) mRNA-1273 vaccineKathy Lue [facility]01-01-2021SARS-CoV-2 (COVID-19) mRNA-1273 vaccineKathy Lue [facility] Medical CenteryComment on above:Result Comment: 3 shots to rbnm32-98-9280woetyenot virus vaccine, split virus (incl. purified surface antigen)Shannan Webster Other [place] [employer] Other 314714-16-6012jxxaejnjq virus vaccine, unspecified formulationKathy Lue [facility]09-21-2020influenza, injectable, quadrivalent, preservative freeKasey Fallon MD Work Phone: [facility] HospitalCufchv08-62-2533yjtvplgck virus vaccine, unspecified formulationKathy Lue [facility] Centery10-21-2019Influenza, injectable, Madin Whiteland Canine Kidney, preservative free, quadrivalentKasey Fallon MD Work Phone: [facility] HospitalNlgkoh43-80-7311mnapceuuofqu polysaccharide vaccine, 23 valentKathy Lue [facility] Centery10-02-2019influenza virus vaccine, unspecified formulationKathy Lue [facility] Centery10-04-2018influenza virus vaccine, unspecified formulationKathy Lue [facility] Centery10-04-2018Seasonal trivalent influenza vaccine, adjuvanted, preservative Christina Fallon MD Work Phone: [facility] HospitalWndzwm59-59-8858jtevadvpe virus vaccine, split virus (incl. purified surface antigen)Shannan Webster Other [place] [employer] Other 1892863-37-0559uclrwtanc virus vaccine, unspecified formulationKathy Lue [facility] [place] 865220-26-2017influenza, injectable, quadrivalent, preservative Christina Fallon MD Work Phone: [facility] HospitalGilzwx93-15-1438mmzvpaunvstx conjugate vaccine, 13 valentKathy Lue [facility] [place] 865220-19-2016influenza virus vaccine, unspecified formulationKathy Lue [facility] [place] 865220-19-2016influenza, seasonal, injectable, preservative Christina Fallon MD Work Phone: [facility] HospitalYbwwmm89-44-7008spcuruzjeutp polysaccharide vaccine, 23 valentKathy Lue [facility] Payers DatePayer CategoryPayerPolicy [id number] Health Insurance [id number] 1.2.840.427122.1.13.693.2.7.3.022124.315 2018Medicare 1.2.840.038476.1.13.693.2.7.3.367165.315 [id number] 2.16.840.7.27408[id number] 2.16.840.5.579059.2377-11-1953 [id number] 2.16.840.1.010808.3.579.2.01251-63-8816Wimrgvj3978004 2.16.840.1.672625.3.57[id number] 2.16.840.1.213239.3.579.2.55013-79-8066Fodqsos5691769 2.16.840.1.713464.3.579.2.45888-81-2475Wnkqoyr1490792 2.16.840.1.435639.3.579.2.38907-45-4896Xftbjrm1510587 2.16.840.1.961983.3.579.2.34766-58-7194Tdnuotj3225525 2.16.840.1.220141.3.579.2.98919-53-6564Rfsxirb5347093 2.16.840.1.679678.3.579.2.55710-01-2790Zoqbjir3175237 2.16.840.1.441363.3.579.2.77832-71-0048Mubexrs9913726 2.16.840.1.587705.3.579.2.48254-47-2998Gqcsvmk86940772 2.16.840.1.698903.3.579.2.615217-32-5538Slbvboe59630537 2.16.840.1.376493.3.579.2.891887-92-2126Rsaqjfm10331500 2.16.840.1.189640.3.579.2.494546-17-7930Wbscsci25487494 2.16.840.1.717775.3.579.2.55945-30-7425Ioahzmc65258705 2.16.840.1.349053.3.579.2.21939-08-6405Shsknxa79170951 2.16.840.1.078475.3.579.2.41133-47-7344Chwybed04324327 2.16.840.1.845619.3.579.2.73247-50-2960Esupvln59239356 2.16.840.1.139087.3.579.2.26[id number] 2.16.840.1.107656.3.579.2.81837-94-0330Mpwzxqp95708186 2.16.840.1.080205.3.579.2.72220-83-3567Xpzrcxz24627721 2.16.840.1.244637.3.57[id number] 2.16.840.1.470867.3.579.2.16645-34-7356Guvluuz87757232 2.16.840.1.728298.3.579.2.48057-49-8206Kveywqr86299946 2.16.840.1.332979.3.579.2.85142-54-2780Pjtgvir83138980 2.16.840.1.055230.3.579.2.99839-37-5019Amxiunw93962065 2.16.840.1.461048.3.579.2.99641-80-0661Ppzzdmy73366843 2.16.840.1.074022.3.579.2.92519-90-5676Ovvmchw23594952 2.16.840.1.909070.3.579.2.77620-88-3262Uqjjybe05454896 2.16.840.1.208067.3.579.2.57956-92-8124Zgcofoz08325873 2.16.840.1.813373.3.579.2.62514-62-4878Wtssnjc98536855 2.16.840.1.432186.3.579.2.51760-77-8215Snymsaz80695256 2.16.840.1.322871.3.579.2.06085-08-9347Ojtvxto39366617 2.16.840.1.757698.3.579.2.09186-14-4413Noxivvo02699490 2.840.1.896557.3.579.2.65013-57-4926Lzrwjmn71774226 2.840.1.493013.3.57[id number] 2.840.1.403196.3.57[id number] 2..840.1.213062.3.57[id number] 2.840.1.411440.3.57[id number] 2.840.1.246445.3.57[id number] 2.840.1.428769.3.57[id number] 2.840.1.893428.3.579.2.1259Self-paySe Pay [id number] Social History DateTypeDetailFacilityUnknown if ever smokedNortCommunity Health Systems [facility] Other Start: 03-07-2023 End: 91-57-1715Pby Assigned At [facility] [employer] Other Start: 11-11-2018 End: 81-26-0851Naxysgv smoking status NHISNever smoked tobacco (finding) [facility]: 13-01-5407Jkj [facility]: 76-10-8604Lhvknhh smoking statusNever [facility]: 03-07-2023 End: 14-56-6866Ivsjlsb use and exposureSmokeless tobacco non-userNOMS Healthcare Start: 03-07-2023 End: 96-83-3325Tyfljca intakeLifetime non-drinker (finding)[facility] HealthcareStart: 03-07-2023 End: 34-15-9858Oenecof of Social functionNOMS HealthcareStart: 74-83-7190Qbtozkj CommentCaffeine : sodaNOMS HealthcareStart: 05-39-1931Ezdiqq identityIdentifies as female gender (finding)[facility] HealthcareStart: 12-08-2007 End: 61-53-6409Ryykxop intakeCurrent non-drinker of alcohol (finding)[facility]art: 44-01-5309Vju Assigned At BirthNot on [facility] Work Phone: Start: 44-24-3065DwqWhbxjk (finding)[facility] Hospitaltart: 09-04-2023 End: 73-88-6867Mcifwsmj to SARS-CoV-2 (event)Not [facility] HospitalSexual OrientationEast [facility] Medical Equipment Procedure CodeEquipment CodeEquipment Original TextEquipment [...] Asuncion London 06/02/24 Unknown UrethraFDAStart: 06-02-2024 CYSTOSCOPY Dewayne VILLEGAS, Asuncion London 06/02/24 Unknown UrethraFDAStart: 06-02-2024 CYSTOSCOPY Asuncion Buchanan MD 06/02/24 Unknown UrethraFDAStart: 06-02-2024 Functional Status PxonEzqgnkfhwoTavclyYymrsoti46-70-9168Cjjcfxwfbv StatusN/[facility] Kgguqh63-13-3845Olmqkulrxa Status[facility]02-05-2025Functional StatusN/[facility]01-07-2025Functional StatusM[facility] 04-17-4737Zmruhmyeve StatusN/[facility]11-20-2024Functional StatusN/[facility]05-30-2024 Functional StatusN/[facility] Gskzss55-14-8933 Functional StatusN/[facility] Jphtoc58-32-8708 Functional StatusN/[facility]02-27-2024Functional StatusN/A [facility] Sfvziy75-25-1530Tafghglpcl StatusN/A [facility]09-16-2022Functional StatusN/[facility] [place] Clinical Notes 10-10-2021 to 12-28-2024 Note Date & QdniWocsXlqhilfn10-14-5953 History of Present illness Narrative* Charito Vasquez [...] sooner should problems arise. documented in this encounterJefferson Memorial HospitalRiyyovqvlc18-24-6486 Evaluation note* Diagnosis Onset Date Resolution Status Admit Date Low back pain acuteOctober 2024 9:42amLumbar spondylosisacuteOctober 2024 9:42am OsteoporosisacuteOctober 2024 9:42amTear of left supraspinatus tendonacute January 25, 2025 10:40am [facility] Work Phone: [phone]) 134-317708-15-2025 Telephone encounter Note* Telephone Encounter - Alycia Luther - 10/30/2024 1:40 PM EDT Left message for pt to call office back to schedule appt with Dr Luther. [facility] HospitalPsyrottuyt71-02-7664 Miscellaneous Notes* Telephone Encounter - Alycia Luther [...] refill of Zyrtec called in to [facility] in [place]. She asked for the 90 day with 3 refills. Her call back [phone] documented in this encounterNOSSM Health CareWnizuykzmy63-97-9389 Telephone encounter Note* Telephone Encounter - Jeanette Luther MD - 10/30/2024 12:44 PM EDT Not seen in over a year. Needs appt or can get from PCP or OTC [facility] HospitalPoaeiioaos09-83-7755 Telephone encounter Note* Telephone Encounter - Asuncion Huddleston - 10/29/2024 10:41 AM EDT Pt called requesting a refill of Zyrtec called in to [facility] in [place]. She asked for the 90 day with 3 refills. Her call back [phone] [facility] HospitalNgvlcknvoh71-76-4365 Nurse Note* Linda Alvarado RN - 07/13/2024 [...] MATERIAL: Procedure Discharge Instructions REFERRAL (RECOMMENDATION): None [facility]04-28-2025 Nurse Note* Linda Alvarado RN - [...] RN In Department: GASTROENTEROLOGY documented in this encounterBrecksville Va [facility]04-28-[facility] NoteQ3 Patient Name: Munira Chester Procedure Date: 07/13/2024 12:36 PM Date of : 1950 Admit Type: Outpatient Age: 73 Gender: Female Note Status: Finalized Attending MD: Kasey Fallon MD, [id number] Procedure: Lower Device-Assisted Enteroscopy without Fluoroscopy Indications: [...] that were not (more content not included)... OMZZNGDQV83-77-6421 NoteHNO ID: [id number] Author: ROSAURA MARIE APRN.UTILITY MAINTENANCE WORKER Service: ? Author Type: Nurse Ticket Puller Type: Anesthesia Procedure Notes Filed: 07/13/2024 13:59 Note Text: ANESTHESIOLOGY PROCEDURE NOTE Airway General Information Procedure Start Time/Medication Administration: 07/13/2024 1:47 PM Procedure End Time: 07/13/2024 1:58 PM Patient location during procedure: OR Timeout Performed Pre-procedure: timeout performed Consent Obtained: Yes Patient identity confirmed: arm band and patient Staffing UTILITY MAINTENANCE WORKER: Rosaura Marie APRN.UTILITY MAINTENANCE WORKER Performed by: JOHNNY Indications and Patient Condition [...] July 13, 2024 TIME: 1:58 PM CSN: [id number] [facility]04-28-2025 History and physical note* Kasey Fallon MD [...] ORAL) Take by mouth. vit A/vit C/biotin/zinc/copper (VJHW-RWUR-HCFQ,VIT A,C-BIOTIN, ORAL) Take by mouth. aspirin 325 [...] (FLONASE) 50 mcg/actuation nasal spray Use 1 [place] in each nostril once daily. atorvastatin (LIPITOR) [...] NAME: Munira Chester DATE: 07/13/2024 TIME: 1345 [facility]04-28-2025 History and physical note* Kasey Fallon [...] ORAL) Take by mouth. vit A/vit C/biotin/zinc/copper (TXJZ-VEKV-DFGJ,VIT A,C-BIOTIN, ORAL) Take by mouth. aspirin 325 [...] (FLONASE) 50 mcg/actuation nasal spray Use 1 [place] in each nostril once daily. atorvastatin (LIPITOR) [...] DATE: 07/13/2024 TIME: 5 documented in this encounterBrecksville [facility]04-28-2025 Nurse Note* Mary Callejas RN - [...] By: Mary Callejas RN In Department: GASTROENTEROLOGY [facility]04-28-2025 NoteQ3 Patient Name: Munira Chester Procedure Date: 07/13/2024 12:36 PM Date of : 1950 Admit Type: Outpatient Age: 73 Gender: Female Note Status: Finalized Attending MD: Kasey Fallon MD, [id number] Procedure: Lower Device-Assisted Enteroscopy without Fluoroscopy Indications: [...] Code(s): --- Professional --- (more content not included)...[facility]04-23-2025 NotePatient Education Urology Urinary Incontinence Urinary incontinence [...] stimulation). ? For women, using a medical pathologist to prevent urine leaks. This is a [...] your health care provider (more content not included)...[facility] 07-06-2024 Nurse Note* Noemí William RN - 07/06/2024 1:25 PM EDT Attempted to reach the patient at the contact number that they provided [phone] (home) [phone] (work) . 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 they must have a responsible [...] Number to call with questions or concerns [phone] Number to call to cancel their procedure [phone] Noemí William RN documented in this encounterBrecksville [facility]04-16-2025 Telephone encounter Note * Telephone Encounter - Jacqueline Hong RN - 07/01/2024 3:45 PM EDT Prep question unable to take Gatorade / Message sent to referring [facility]04-16-2025 Miscellaneous Notes* Telephone Encounter - Jacqueline Hong RN - 07/01/2024 3:45 PM EDT Prep question unable to take Gatorade / Message sent to referring documented in this encounterBrecksville Va / [facility]03-20-2025 NoteProgress Note-Physician Patient: MUNIRA CHESTER Age: [...] Problems Urinary tract infection / SNOMED CT 184418786 / Confirmed Intrinsic sphincter deficiency (ISD) / SNOMED CT 8715326232 / Confirmed Urethral caruncle / SNOMED CT 57142137 / Confirmed Small bowel stricture / SNOMED CT 1323295844 / Confirmed Duodenal stricture / SNOMED CT 40646147 / Confirmed Recurrent UTI / SNOMED CT 657322948 / Confirmed Osteopenia of lumbar spine / SNOMED CT 581314410 / Confirmed Nocturia / SNOMED CT 955322651 / Confirmed Mild persistent asthma / SNOMED CT 2321413871 / Confirmed Migraine / SNOMED CT 52770060 / Confirmed Microscopic hematuria / SNOMED CT 954678370 / Confirmed Lumbar spondylosis / SNOMED CT 434987250 / Confirmed Urethral lesion / SNOMED CT 6274333584 / Confirmed Mixed incontinence / SNOMED CT 28245084 / Confirmed Hypertension / SNOMED CT 0184653360 / Confirmed Hyperlipidemia / SNOMED CT 77980830 / Confirmed Personal history of colonic polyps / SNOMED CT 7569018081 / Confirmed History of gastric ulcer / SNOMED CT 340263572 / Confirmed H/O gastric ulcer / SNOMED CT 506562692 / Confirmed Graves disease / SNOMED CT 244807160 / Confirmed GERD (gastroesophageal reflux disease) / SNOMED CT 677133490 / Confirmed Incomplete bladder emptying / SNOMED CT 796339451 / Confirmed Epigastric pain / SNOMED CT 839418840 / Confirmed Chronic tension headache / SNOMED CT 084708575 / Confirmed Cervical spondylosis / SNOMED CT 0389095144 / Confirmed Bilateral cataracts / SNOMED CT 177063709 / Confirmed Benign essential hypertension / SNOMED CT 5632981 / Confirmed Hypothyroidism, acquired, autoimmune / SNOMED CT 520319302 / Confirmed Asymptomatic microscopic hematuria / SNOMED CT 8419336304 / Confirmed Asthma / SNOMED CT 372125780 / Confirmed Arthritis / SNOMED CT 7998250 / Confirmed Acute allergic rhinitis due to pollen / SNOMED CT 30226570 / Confirmed Abdominal bloating / SNOMED CT 599174248 / Confirmed Resolved: Reflux of urine / SNOMED CT 7003816373 Histories Procedure history: Cystoscopy, urethral biopsy ([id number]) on 04/07/2024 at 73 Years. Esophagogastroduodenoscopy (938026500) on 05/22/2023 at 72 Years. Colonoscopy (695423151) on 05/22/2023 at 72 Years. Colonoscopy (574139513) on 09/07/2019 at 69 Years. EGD - Esophagogastroduodenoscopy (7784526415) on 09/07/2019 at 69 Years. EGD - Esophagogastroduodenoscopy (7543270825) on 01/16/2015 at 64 Years. Colonoscopy (297289866) on 01/16/2015 at 64 Years. Comments: 08/31/2019 16:19 EDT - Tonie Barragan LPN normal EGD - Esophagogastroduodenoscopy (3689589793) on 08/17/2011 at 61 Years. EGD - Esophagogastroduodenoscopy (9577612623) on 05/17/2011 at 60 Years. Laparoscopic cholecystectomy (40536809) on 06/16/2010 at 59 Years. Colonoscopy (611045758) on 01/16/2010 at 59 Years. section (13234559). Rotator cuff repair (601804991). Tubal ligation (028421668). Cataracts (1083998156). Foot (65250192). Dilation and curettage (11036254). Thyroidectomy (29758298). Right wrist surgery (30877574). Social History Social & Psychosocial Habits Alcohol [...] adequate air exchange. Cardiovascular: Regular rhythm. Plan [place] Society [employer] Anesthesiologists (ASA) physical status classification: Class III. Anesthetic Preoperative (more content not included)...[facility] HealthcareComment on above:Result Comment: Electronically Signed By: Jay Jay Valderrama Jr, DO\.br\Date and Time Signed: 06/04/24 13:21 [id number] NoteProgress Note-Physician Patient: MUNIRA CHESTER Age: 73 [...] Discharge when meets criteria ( To home ).[facility] HealthcareComment on above:Result Comment: Electronically Signed By: Jay Jay Valderrama Jr, DO\Date and Time Signed: 06/04/24 13:19 EDT 06-02-2024 Evaluation + Plan noteExtracted from:Title:EU- BulkamidAuthor:Asuncion Buchanan MDDate:06/02/24 Impression and Plan Diagnosis Intrinsic sphincter deficiency (ISD) (AQT23-[place] N36.42, Discharge, Medical). Diagnosis Intrinsic sphincter deficiency (ISD) (JBZ68-P[place] N36.42, Discharge, Medical). Future Appointments Appointment Date:07/08/2024 09:00:00 AM Scheduled Provider:Asuncion Buchanan MD Location:[facility] Appointment Type:URO Office Visit [facility] [id number] Hospital Discharge instructions Patient Education 06/02/2024 09:00:02 Post Op Patient Instructions - FT (CUSTOM) 06/02/2024 08:43:01 Lue - [facility] Post-Op Instructions (CUSTOM) [facility] [place] [place] Post-Operative Instructions for [facility] Congratulations on [...] may recommend a warm bath and/or an nqie-mwi-sxtnmks pain medication to reduce discomfort. If you [...] physician for acomplete list of instructions. 2020 [employer]. All rights reserved. This material contains registered trademarks, trade names, and brand names of [employer]. [phone] 02/2021 [employer] , [place] [address] [email or web address] Follow Up Care 04/22/2024 11:39:53 With:Asuncion Buchanan Address: [facility] [address] [phone] Business (1) When: Unknown Comments:Call to schedule your follow up in 1 month for PVR [facility] 03-18-2025 NotePatient Education - Text [facility] [place] [place] Post-Operative Instructions for [facility] Congratulations on starting your journey towards symptom [...] may recommend a warm bath and/or an fyeu-azj-hjwtamq pain medication to reduce discomfort. ??? If [...] for acomplete list of instructions. ??? 2020 [employer]. All rights reserved. This material contains registered trademarks, trade names, and brand names of [employer]. [phone] 02/2021 [employer] , [place] [address] www.[email or web address] [facility]03-07-2025 Telephone encounter Note* Telephone Encounter - Hollis Mckeon RN - 05/22/2024 11:40 AM EST Pt called, asked for return call. Called pt and question is what approval, upper or lower approvch for the enteroscopy procedure in June, she thought lower, but was told upper and concerned if lower, needs specific bowel prep, does better with miralax. Hollis Mckeon RN [facility] Work Phone: 1(290) 351-824803-07-2025 Miscellaneous Notes* Telephone Encounter - Hollis Mckeon RN - 05/22/2024 11:40 AM EST Pt called, asked for return call. Called pt and question is what approval, upper or lower approvch for the enteroscopy procedure in June, she thought lower, but was told upper and concerned if lower, needs specific bowel prep, does better with miralax. Hollis Mckeon RN documented in this encounterBrecksville [facility]02-13-2025 History of Present illness Narrative* Charito Vasquez MD - 04/30/2024 9:20 AM EST Munira Chester returns to the office today and notes that her cough has been very rare but she still has frequent sneeze. She is still on Xhance and this will be coming from [facility] soon. It will be800 USD per 3 months at [facility]. She has no wheeze or [...] sooner should problems arise. documented in this encounterJefferson Memorial HospitalGtwtuitqal91-37-2199 Hospital Discharge instructions Patient Education 04/22/2024 11:30:30 [...] nerve stimulation). ?For women, using a medical pathologist to prevent urine leaks. This is a [...] right after experiencing incontinence. General instructions Take gmfh-bbx-ixgloqz and prescription medicines only as told by [...] important. Where to find more information National [place] of Diabetes and Digestive and Kidney Diseases: www.niddk.nih.gov [place] [employer]: www.urologyhealth.org Contact a health care [...] provider. Document Revised: 10/07/2020 Document Reviewed: 10/07/2020 [employer] Patient Education 2023 [employer]. Follow Up Care 03/05/2024 08:53:11 With:Dewayne VILLEGAS, RANDAL Arizmendi, URO Address: When: Unknown [facility] Tariq 02-05-2025 NotePatient Education Urology Urinary Incontinence Urinary [...] stimulation). ? For women, using a medical pathologist to prevent urine leaks. This is a [...] your health care provider (more content not included)...[facility] 04-16-2024 History of Present illness Narrative* Madison [...] Mammogram 02/03/24 wnl, DEXA 02/05/23 osteopenia @ [place] Review of Systems - General: Chills denies. [...] Review Audit Reviewed by Renita Lucia MA (Devops) on 04/16/24 at 1057 Medication Order Taking? Sig Documenting Provider Last Dose Status albuterol HFA 90 mcg/act inhaler [id number] No Inhale 2 puffs Madison Burns DO Taking Active amLODIPine (Norvasc) 5 MG tablet [id number] No Refills(s) 0 Madison Burns DO Taking Active atorvastatin (Lipitor) 10 MG tablet [id number] No 1 (one) time each day at the same time Madison Burns DO Taking Active azelastine (Astelin) 0.1 % nasal spray [id number] No Administer 2 sprays into each nostril in the morning and 2 sprays before bedtime. Use in each nostril as directed. Charito Vasquez MD Taking Active betamethasone valerate (Valisone) 0.1 % cream [id number] APPLY TO THE AFFECTED AREA TWICE A DAY Madison Burns DO Active betamethasone valerate (Valisone) 0.1 % ointment [id number] APPLY TO THE AFFECTED AREA EXTERNALLY TWOTIMES A DAY, REPLACES PREVIOUS SENT SCRIPT Madison Burns DO Active budesonide (Pulmicort) 0.5 MG/2ML nebulizer solution [id number] Take 2 mL (0.5 mg) by nebulization inthe morning. Rinse mouth with water after use to reduce aftertaste and incidence of candidiasis. Donot swallow.. Charito Vasquez MD Active cetirizine (ZyrTEC) 10 MG tablet [id number] Take 1 tablet (10 mg) by mouth Daily as needed for allergies Jeanette Luther MD Active doxycycline (Adoxa) 100 MG tablet [id number] No Take 100 mg by mouth in the morning and 100 mg beforebedtime. Take with a full glass of water and do not lie down for at least 30 minutes after. Jeanette Luther MD Taking Active EpiPen 2-Giovani 0.3 MG/0.3ML injection syringe [id number] No as directed Injection Juan Hutchison Active estradiol (Estrace) 0.1 MG/GM vaginal cream [id number] No See Instructions, 42.5 gm, Refill(s) 0, apply pea sized amount to urethra 2x/wk, [facility], 158, cm, 02/20/23 8:48:00 EST, Height/Length Dosing, 68.5, kg, 02/20/23 8:48:00 EST, Weight Dosing Madison Burns DO TakingActive famotidine (Pepcid) 20 MG tablet [id number] No Take by mouth Madison Burns DO Taking Active fluocinonide (Lidex) 0.05 % external solution [id number] No Apply to affected areas on the scalp, up to twice a day when flared, 30 day supply Ama Mclaughlin, JAELYN-JOSHUA Taking Active fluticasone (Flonase) 50 MCG/ACT nasal spray [id number] No Administer 2 sprays into each nostril Daily Shake gently. Before first use, prime pump. After use, clean tip and replace cap. Jeanette Luther MD Taking Active Fluticasone Propionate (Xhance) 93 MCG/ACT Exhaler Suspension [id number] Administer 1 spray into affected nostril(s) in the morning and 1 spray before bedtime. Charito Vasquez MD Active Fosamax 70 MG tablet [id number] No 1 tablet 30 minutes before the first food, beverage or medicine ofthe day with plain water Orally for 30 day(s) Madison Burns DO Taking Active guaiFENesin-codeine (Robitussin-AC) 100-10 MG/5ML syrup [id number] No Take 5 mL by mouth 3 (three) times a day as needed Taking Active levothyroxine (Synthroid, Levoxyl) 88 MCG tablet [id number] No 1 (one) time each day at the same timeMadison Burns DO Taking Active loratadine-pseudoephedrine ER (Claritin-D 12-hour) 5-120 MG 12 hr tablet [id number] No Take 1 tablet by mouth in the morning and 1 tablet before bedtime. Do not crush, chew, or split.. Charito Vasquez MD Taking Active metoclopramide (Reglan) 10 MG tablet [id number] No Take 10 mg by mouth in the morning and 10 mg at noon and 10 mg in the evening and 10 mg before bedtime. Taking Active montelukast (Singulair) 10 MG tablet [id number] No 1 (one) time each day at the same time Madison Burns DO Taking Active pantoprazole (ProtoNix) 40 MG EC tablet [id number] Take 1 tablet (40 mg) by mouth in the morning and 1 tablet (40 mg) before bedtime. Do not crush, chew, or split.. Charito Vasquez MD Active predniSONE (Deltasone) 20 MG tablet [id number] No Take 20 mg by mouth Daily Taking Active RA Vitamin D-3 50 MCG (1999) capsule [id number] No Take 50 mcg by mouth in the morning. Madison Almonte DO Taking Active Past Medical History: Diagnosis Date Abnormal Pap smear of cervix Arthritis Aspiration into airway, initial encounter Asthma ([facility]/HCC) Cataract Chronic hoarseness Episodic tension-type headache, not intractable 02/06/2016 GERD (gastroesophageal reflux disease) Graves disease (CMS/HCC) Hyperlipidemia (CMS/[facility]) Hypertension (CMS/HCC) Irritable bowel syndrome with predominant [...] Z78.0 DEXA bone density documented in this encounterJefferson Memorial HospitalOfonvgfixk89-09-8693 NoteProgress Note-Physician Patient: MUNIRA CHESTER Age: 73 years Sex: Female : 1950 Associated Diagnoses: None Author: MD Camacho Ahmad F Postoperative Information Postoperative disposition: Postoperative disposition: To PACU. Optimetrix number: Optimetrix number [id number]. Anesthetic utilized: General. Health Status Allergies: Allergic [...] Discharge when meets criteria ( To home ).[facility] HealthcareComment on above:Result Comment: Electronically Signed By: MD [...] day(s), # 2 tab(s), Refills(s) 0, Pharmacy: [facility], 158, cm, 03/24/24 11:38:00 EST, Height/Length Dosing, 75.5, kg, 03/24/24 11:38:00 EST, Weight Dosing... Macrobid 100 mg Cap: 100 mg = 1 cap(s), Oral, As Directed, take 1 tablet within 1 hour before or after intercourse to prevent infection., # 30 cap(s), Refills(s) 3, Pharmacy: [facility], 158, cm, 02/20/23 8:48:00 EST, Height/Length Dosing, 68.5, kg,... Pantoprazole [address] Tab: 40 mg = 1 tab(s), Oral, Daily, # 90 tab(s), Refills(s) 1, Pharmacy: [id number] [address] [facility], 154.9, cm, 12/11/19 9:26:00 EDT, Height/Length Dosing, 70.2, kg, 12/11/19 9:26:00 EDT, Weight Dosing estradiol 0.1 mg/g Vag Crm: See Instructions, 42.5 gm, Refill(s) 0, apply pea sized amount to urethra 2x/wk, [facility], 158, cm, 02/05/24 11:08:00 EST, Height/Length Dosing, 62, kg, 02/05/24 11:08:00 EST, Weight Dosing oxybutynin 5 mg Tab: 5 mg = 1 tab(s), Oral, TID, PRN bladder spasms, # 30 tab(s), Refills(s) 0, Pharmacy: [facility], 158, cm, 03/24/24 11:38:00 EST, Height/Length [...] of stomach acid fluticasone 0.05 mg/inh Nasal [place]: 2 spray(s), Nasal, Daily, Refill(s) 0 levothyroxine 100 mcg (0.1 mg) Tab: 100 mcg = 1 tab(s), Oral, Daily, Refills(s) 0, Thyroid montelukast 10 mg Tab: 10 mg = 1 tab(s), Oral, qPM, # 90 tab(s), Refills(s) 0, Asthma orphenadrine compounding powder: PRN Migraine headache, Refills(s) 0 Problem list: All Problems Acute allergic rhinitis due to pollen / SNOMED CT 84419039 / Confirmed Benign essential hypertension / SNOMED CT 2716068 / Confirmed GERD (gastroesophageal reflux disease) / SNOMED CT 509588721 / Confirmed Lumbar spondylosis / SNOMED CT 824828535 / Confirmed Cervical spondylosis / SNOMED CT 2536838709 / Confirmed History of gastric ulcer / SNOMED CT 122246086 / Confirmed Osteopenia of lumbar spine / SNOMED CT 781418978 / Confirmed Hyperlipidemia / SNOMED CT 15048098 / Confirmed Hypothyroidism, acquired, autoimmune / SNOMED CT 477977022 / Confirmed Chronic tension headache / SNOMED CT 566284388 / Confirmed Mild persistent asthma / SNOMED CT 0484719582 / Confirmed Bilateral cataracts / SNOMED CT 593908562 / Confirmed Migraine / SNOMED CT 43679607 / Confirmed Duodenal stricture / SNOMED CT 93742034 / Confirmed H/O gastric ulcer / SNOMED CT 180996074 / Confirmed Personal history of colonic polyps / SNOMED CT 2526063036 / Confirmed Epigastric pain / SNOMED CT 502452826 / Confirmed Abdominal bloating / SNOMED CT 195551892 / Confirmed Graves disease / SNOMED CT 792592769 / Confirmed Hypertension / SNOMED CT 1169794898 / Confirmed Asthma / SNOMED CT 510417975 / Confirmed Arthritis / SNOMED CT 2500861 / Confirmed Urinary tract infection / SNO (more content not included)...[facility] HealthcareComment on above:Result Comment: Electronically Signed By: MD Camacho Ahmad F\.br\Date and Time Signed: 04/07/24 17:50 [id number] Evaluation + Plan noteExtracted from:Title:ANES Post Op - GeneralAuthor:MD Camacho Ahmad F Date:04/07/24 Plan Transfer/Discharge: Transfer/Discharge Discharge when meets criteria ( To home ). 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 Urethral caruncle (XAC90-WE N36.2, Discharge, Medical). Diagnosis Urethral tumor ([id number]-FZ D49.59, Discharge, Medical). Urethral caruncle (WXM94-GM N36.2, Discharge, Medical). Extracted from:Title:ANES Pre Op - Adult GeneralAuthor:MD Doug, Ahord F Date:04/07/24 Plan [place] [employer]esthesi[employer] (ASA) physical status classification: Class III. Anesthetic Preoperative Plan Anesthesia: General. . Anesthetic plan, risks, benefits, and alternatives discussed with the patient and/or family. Risks discussed: nausea, vomiting, headache, sore throat, dental injury, serious complications. Patient verbalized understanding. Communication: face to face with patient 5 minutes. Future Appointments Appointment Date:04/22/2024 10:45:00 AM Scheduled Provider:Asuncion Buchanan MD Location:[facility] Appointment Type:URO Office Visit [facility] 01-21-2025 Hospital Discharge instructions Patient Education 04/07/2024 10:47:43 White Catheter Care, Female-[facility] (CUSTOM) White Catheter Care, Female A [...] cotton underwear to absorb moisture and keep label drier. 6. Keep the drainage bag below [...] Instructions - FT (Custom) (CUSTOM) 04/07/2024 10:38:45 Frost - Post Op INstructions for Bladder Tumor, Bladder Biopsy (CUSTOM) [facility] [place], [place] Post-Operative Instructions *Even though there are [...] bleeding * AZO (phenazopyridine) can be purchased lyke-ojr-ewaqewd for burning with urination. This will make [...] do not hear from us by tomorrow. ([phone] or [phone]) Follow Up Care 02/24/2024 10:45:49 With:Asuncion Buchanan Address: [place] Mccann, [address] [address] [phone] Business (1) When: Unknown Comments:Office to call to schedule your follow up: white removal and voiding trial in 1-2 days once urine is clear. Follow up in 1-2 weeks for pathology review. [facility] 01-21-2025 NotePatient Education - Text White [...] cotton underwear to absorb moisture and keep label drier. 6. Keep the drainage bag below [...] and call with any concerns. [facility] [place], [place] Post-Operative Ins (more content not included)...[facility] 02-24-2024 Evaluation + Plan noteExtracted from:Title:EU- Clinic [...] Pending * Urine Cytology ([facility]) 02/24/24 [facility] 12-09-2024 NoteProgress Note-Physician Patient: MUNIRA CHESTER [...] infection., # 30 cap(s), Refills(s) 3, Pharmacy: [facility], 158, cm, 02/20/23 8:48:00 EST, Height/Length Dosing, 68.5, kg,... Pantoprazole [address] Tab: 40 mg = 1 tab(s), Oral, Daily, # 90 tab(s), Refills(s) 1, Pharmacy: [facility] [facility], 154.9, cm, 12/11/19 9:26:00 EDT, Height/Length Dosing, 70.2, kg, 12/11/19 9:26:00 EDT, Weight Dosing estradiol 0.1 mg/g Vag Crm: See Instructions, 42.5 gm, Refill(s) 0, apply pea sized amount to urethra 2x/wk, Angle #72, 158, cm, 02/05/24 11:08:00 EST, Height/Length [...] of stomach acid fluticasone 0.05 mg/inh Nasal [place]: 2 spray(s), Nasal, Daily, Refill(s) 0 levothyroxine [...] biopsy results. 3. Ure (more content not included)...[facility] HealthcareComment on above:Result Comment: Electronically Signed By: Dewayne VILLEGAS, Asuncion [place]\.melissa\Date and Time Signed: 02/24/24 12:[id number] Hospital Discharge instructions Patient Education 02/24/2024 10:20:28 [...] cysto, urethral biopsy with fulguration under anesthesia [facility] 12-09-2024 NotePatient Education Cystoscopy ??? Voiding [...] if you have a fever over 100 degrees.[facility] 02-05-2024 Hospital Discharge instructions Patient Education 02/05/2024 [...] provider. Document Revised: 07/13/2021 Document Reviewed: 07/13/2021 [employer] Patient Education 2023 [employer]O. Follow Up Care 02/20/2023 09:54:54 With:Dewayne VILLEGAS, Asuncion London, URL, URO Address: When: Unknown Comments:Schedule Cysto and Pelvic Exam [facility] 11-20-2024 NotePatient Education Obstetrics and Gynecology [...] provider. Document Revised: 07/13/2021 Document Reviewed: 07/13/2021 [employer] Patient Education ? 2023 [employer]O.[facility] 01-29-2024 History of Present illness Narrative* Marsha [...] laser capsulotomy, they are to notify their crystal report developer promptly if they have a significant change in symptoms, such as flashes of light (photopsia), an increase in floaters, loss of visual field or decrease in visual acuity. documented in this encounterJefferson Memorial [id number] Evaluation note* Diagnosis Onset Date Resolution Status Admit Date Asthma acuteNov2023 8:24amHypertensionacuteNov2023 8:24am HypothyroidismacuteNov2023 8:24amIron deficiency anemiaacuteFebruary 05, 2024 8:24amMedicare annual wellness visit, subsequentacuteFebruary 05, 2024 8:24amOsteoporosisacuteFebruary 05, 2024 8:24amScreening mammogram for breast canceracuteFebruary 05, 2024 8:24amSmall bowel strictureacuteFebruary 05, 2024 8:24am [facility] Work Phone: [phone] History of Present illness Narrative* Charito Vasquez [...] again at that time to see if [facility] pharmacy has been less expensive for her Xhance. documented in this [facility]10-11-2024 Instructions* Patient Instructions* Kasey Fallon MD - [...] am on dialysis? A: Please consult your regional construction manager prior to scheduling to get instructions pertinent to you. In general, dialysis patients take the Meiyouly bowel prep and have the procedure same [...] rest of the day. documented in this encounterB[facility] History of Present illness Narrative* Kasey [...] balloon enteroscopy Kasey Fallon MD 12/27/2023 Staff Score Caller [facility] [place] [facility] , REFERRING PROVIDER: Jones Ace [address] [facility] [address] REASON FOR REFERRAL: Small bowel stricture HISTORY: [...] Inhale 1 Inhalation as instructed once daily. Liqdrtuuku-Ganvnxupypjhl-Wyma (FIORICET) 50-300-40 mg cap Take by mouth. EPINEPHrine (EPIPEN) 0.3 mg/0.3 mL auto-injector Inject 0.3 mg intramuscularly as needed. fluticasone (FLONASE) 50 mcg/actuation nasal spray Use 1 [place] in each nostril once daily. atorvastatin (LIPITOR) [...] dilated small bowel. No visualized stricture. RESULT: Sluice Tender radiograph shows no dilated bowel loops. Right [...] of records, and documentation. documented in this encounterBrecksville [facility]10-11-2024 NoteHNO ID: [id number] Author: KASEY FALLON MD Service: ? Author [...] balloon enteroscopy Kasey Fallon MD 12/27/2023 Staff Score Caller [facility] [place] [facility] , REFERRING PROVIDER: Jones Ace [address] [facility] [address] REASON FOR REFERRAL: Small bowel stricture HISTORY: [...] Inhale 1 Inhalation as instructed once daily. Gzksvxwotm-Ioundjvhckneg-Jgou (FIORICET) 50-300-40 mg cap Take by mouth. EPINEPHrine (EPIPEN) 0.3 mg/0.3 mL auto-injector Inject 0.3 mg intramuscularly as needed. fluticasone (FLONASE) 50 mcg/actuation nasal spray Use 1 [place] in each nostril once daily. atorvastatin (LIPITOR) [...] History: S/p laparoscopic cholecystectomy (more content not included)...[facility]10-09-2024 Telephone encounter Note* Telephone Encounter - Hollis Mckeon RN - 12/25/2023 2:56 PM EDT Pt called and left VM, said had small bowel xray done, saw results and now questioning if still needs appt with Dr. Fallon, scheduled for 12/26, asking for return call to clarify if still needs to come or can cx. Call cell phone at [phone]. Hollis Mckeon RN [facility]10-09-2024 Miscellaneous Notes* Telephone Encounter - Hollis Mckeon RN - 12/25/2023 2:56 PM EDT Pt called and left VM, said had small bowel xray done, saw results and now questioning if still needs appt with Dr. Fallon, scheduled for 12/26, asking for return call to clarify if still needs to come or can cx. Call cell phone at [phone]. Hollis Mckeon, RN documented in this encounterBrecksville [facility]10-08-2024 History of Present illness Narrative* Mary [...] PATIENT PRESENTS WITH AN IMPLANTABLE OR ATTACHED PHYSICIAN ASSISTANT PSYCHIATRY: No RADIOLOGY DEPARTMENT: General X-ray: Exam(s) Completed: GI/ Procedure(s): Small bowel series withbarium contrast PERIPHERAL IV DATA: Not applicable SIGNED BY: RT Adair(Peterson) December 24, 2023 2:19 PM documented in this encounterBrecksville [facility]10-08-2024 NoteHNO ID: [id number] Author: MARY JIMENEZ RT(R) Service: Radiology Author [...] PATIENT PRESENTS WITH AN IMPLANTABLE OR ATTACHED PHYSICIAN ASSISTANT PSYCHIATRY: No RADIOLOGY DEPARTMENT: General X-ray: Exam(s) Completed: GI/ Procedure(s): Small bowel series with barium contrast PERIPHERAL IV DATA: Not applicable SIGNED BY: Mary Jimenez RT(R) December 24, 2023 2:19 [facility]09-18-2024 Telephone encounter Note* Telephone Encounter - Hollis Mckeon RN - 12/04/2023 11:11 AM EDT Pt left VM and would like to reschedule GI test to earlier in week due to would like to come with her and drive and then maybe MD would also have test results before appt. Hollis Mckeon RN [facility]09-18-2024 Miscellaneous Notes* Telephone Encounter - Hollis Mckeon RN - 12/04/2023 11:11 AM EDT Pt left VM and would like to reschedule GI test to earlier in week due to would like to come with her and drive and then maybe MD would also have test results before appt. Hollis Mckeon RN documented in this encounterBrecksville [facility]08-15-2024 Telephone encounter Note * Telephone Encounter - Rehana Hoang - 10/31/2023 9:30 AM EDT Patient called to see if you have received a fax from a Dr. Nettles's office for a pill cam? [facility]08-15-2024 Miscellaneous Notes* Telephone Encounter - Rehana oHang - 10/31/2023 9:30 AM EDT Patient called to see if you have received a fax from a Dr. Nettles's office for a pill cam? documented in this encounterBrecksville [facility]07-31-2024 Telephone encounter Note * Telephone Encounter - Hollis Mckeon RN - 10/16/2023 1:49 PM EDT Faxed referral received on 10/15/23 for pt sent from Dr. Ace from [place] to attention Dr. Fallon, for pt for GI for consideration for double balloon enteroscopy. What records were received were scanned to chart. Hollis Mckeon RN [facility]07-31-2024 Miscellaneous Notes* Telephone Encounter - Hollis Mckeon RN - 10/16/2023 1:49 PM EDT Faxed referral received on 10/15/23 for pt sent from Dr. Ace from [place] to attention Dr. Fallon, for pt for GI for consideration for double balloon enteroscopy. What records were received were scanned to chart. Hollis Mckeon RN documented in this encounterBrecksville [facility]06-29-2024 History of Present illness Narrative* Jhonny [...] contrast media, Iodine, Wasp venom, Amoxicillin, Sulfacetamide mcj-ilvusv-lqkd, Penicillin, and Sulfa (sulfonamide antibiotics) Current Meds: [...] apply pea sized amount to urethra 2x/wk[facility], cm, 02/20/23 8:48:00 EST, Height/Length [...] at the same time, Disp: , Rfl: cdbwpnipau-oxcidoczjkcvt-kkwn (Fioricet) 50-300-40 mg capsule, Take by mouth., [...] LAD, no thyroid masses. SINONASAL ENDOSCOPY (CPT 83293): To better evaluate the patient's symptoms, sinonasal [...] given doxycycline and asked to begin dextromethorphan ndbh-kxv-jagvcti. I personally reviewed the last note from [...] on her imaging were the most significant buggy driver of her ongoing throat clearing and [...] moving forward. All questions were answered. Between nais-wt-ijak contact, review of the medical record, and documentation I spent 65 minutes onthis evaluation during the day of service. Signature: Jhonny Maher MD documented in this encounterLake[facility] Work Phone: [phone]) 127-892606-20-2024 Mason from [facility] called stating that a referral was faxed ton August 25 for patient for a double balloon enteroscopy. Had spoken with Dayan previously as we don't do the double balloons but referring physician is fine with just a single balloon. Patient is wanting to go [facility] where a double balloon can be done so disregard this referral.[facility]06-12-2024 NoteCalled and spoke with Dayan at [facility] regarding a referral that was sent on August 25 for this patient. In reading the notes she is being referred for a double balloon enteroscopy and our physicians only do single balloon's. She will check with Dr. Ace to see how he would like to proceed and let me know.[facility]03-07-2024 Note [id number]#1.00Surjit [facility] 05-22-2023 Hospital [...] unsweetened, w/added ascorbic acid 1 cup 0.5 [place] 1 cup 0.7 Vegetables Cooked Green beans 1 cup 4.0 Carrots 1/2 cup sliced 2.3 Peas 1 cup 8.8 Potato (baked, with skin) 1 medium potato 3.8 Raw [place] (with peel) 1 cucumber 1.5 Lettuce 1 [...] 8.7 Peanuts 1/2 cup 7.9 Chart from [facility] 2013. SEEK IMMEDIATE MEDICAL CARE IF: [...] adapted from: [facility] Patient Information 2009 [employer]. [facility] Southern [facility] MexicoCap That 2012 http://www.[employer]/contents/amrqtgemhqws-fvsdmxq-rsctva-the-basics 05/22/2023 08:58:41 Hemorrhoids, Thwi-tg-Xnra Hemorrhoids Hemorrhoids are swollen veins that may [...] 3 times a day. General instructions Take aruf-dvm-hrgtzwn and prescription medicines only as told by [...] provider. Document Revised: 09/13/2021 Document Reviewed: 09/13/2021 [employer] Patient Education 2022 [employer] 05/22/2023 08:58:37 Endoscopy, Care After Procedure [facility]) Endoscopy Care After Procedure Please read the instructions outlined below and refer to this sheet in the next few weeks. These discharge instructions provide you with general information on caring for yourself after [facility]. Your doctor may also give you specific [...] blood. Document Released: 10/16/2004 Document Re-Released: 08/26/2006 [employer] Patient Information [employer]. 05/22/2023 08:58:29 Hiatal Hernia Hiatal Hernia A [...] reduce GERD symptoms. Medicines. These may include: ?Zfrv-hmk-oepsbqx antacids. ?Medicines that make your stomach empty [...] may include: ?Fatty foods, like fried foods. ?Cavalier fruits, like oranges or lemon. ?Other foods [...] Do not drink alcohol. General instructions Take lacf-qyq-tblqvil and prescription medicines only as told by [...] provider. Document Revised: 05/01/2022 Document Reviewed: 05/01/2022 [employer] Patient Education 2022 [employer]O. Follow Up Care 05/14/2023 13:37:06 With:Tho VILLEGAS, RUBA Villanueva, [facility] Address: When: Unknown Comments:Call for any problems. The office will reach out in about one week from procedure date. [facility]02-05-2024 Evaluation note* Encounter Date Diagnosis Assessment Notes Treatment Notes Treatment Clinical Notes Apr, Moderate persistent asthma witho ut complication (ICD-10 - J45.40) [employer] Other 02-02-2024 Evaluation note* Encounter Date Diagnosis Assessment Notes Treatment Notes Treatment Clinical Notes Apr, Moderate persistent asthma with acute exacerbation (ICD-10 - J45.41) [place] [employer] Other 01-30-2024 Evaluation note* Encounter Date Diagnosis [...] Claritin, Singulair and Flonase Scheduled to see photography instructor. Mar,Gastroesophageal reflux disease with esophagitis without hemorrhage (ICD-10 - K21.00)Avoid lying flat after eating. Avoid eating 2 hours prior to bedtime. Smaller, frequent meals may be better tolerated.Weight loss if overweight.PPI with any heartburn.Monitor for dysphagia. 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 Take alnc-kpu-ofmlhot and prescription medicines only as told by [...] provider. Document Revised: 07/12/2021 Document Reviewed: 07/12/2021 [employer] Patient Education 2022 [employer]. 02/20/2023 09:44:59 Kegel Exercises Kegel Exercises Kegel [...] provider. Document Revised: 07/13/2021 Document Reviewed: 07/13/2021 [employer] Patient Education 2022 [employer] Follow Up Care 01/31/2022 08:50:25 With:Dewayne VILLEGAS, RANDAL Arizmendi, URO Address: [address] [place] [address]- [phone] When: Unknown Comments:3 yr [facility] 12-04-2023 Evaluation note* Encounter Date Diagnosis Assessment Notes Treatment Notes Treatment Clinical Notes Feb, Moderate persistent asthma with acute exacerbation (ICD-10 - J45.41) Holding Breo for trial of Trelegy. Avoid dust, mold, fumes as much as possible. Steroid taper to break cycle of coughing Refer to [facility] and [facility] [employer] when stable Feb,Non-seasonal allergic rhinitis due to other allergic trigger (ICD-10 - J30.89)Continue FLonase NS Add Astepro NS Continue Claritin and Singulair Feb,astroesophageal reflux disease with esophagitis without hemorrhage (ICD-10 - K21.00)Diet instructions: Smaller portions, avoid eating and laying flat, avoid eating or drinking prior to bedtime. Weight loss. Continue PPI [facility] Other 11-21-2023 Evaluation note* Encounter Date Diagnosis Assessment Notes Treatment Notes Treatment Clinical Notes Jan, Age-related osteopor osis without current pathological fracture (ICD-10 - M81.0) Jan,Hypercholesteremia (ICD-10 - E78.00) [facility] Other 11-14-2023 Evaluation note* Encounter Date Diagnosis Assessment Notes Treatment Notes Treatment Clinical Notes Jan, Menopause (ICD-10 - Z78.0) [facility] Other 11-10-2023 Evaluation note* Encounter Date Diagnosis Assessment Notes Treatment Notes Treatment Clinical Notes Jan, Hypercholesteremia (ICD-10 - E78 .00) [facility] Other 11-10-2023 Evaluation note* Encounter Date Diagnosis [...] on avoidance of dust, smoke and allergens. Jan,Mild persistent asthma, uncomplicated (ICD-10 - J45.30)Stable symptoms w/ intermittent use of NIKO. ER visit last month for AE but much improved. Offered PFT and referral to [facility] [employer]. Jan,utoimmune thyroiditis (ICD-10 - E06.3)Clinically euthyroid, TSH [...] Jan,AD (generalized anxiety disorder) (ICD-10 - F41.1) [facility] Other 09-27-2023 Evaluation note* Encounter Date Diagnosis Assessment Notes Treatment Notes Treatment Clinical Notes Nov, Moderate persistent asthma with acute exacerbation (ICD-10 - J45.41) Reviewed medication - continue LABA/ICS and NIKO - continue Singulair, Claritin and Flonase Suggested short course of Steroids and antibiotics. Discussed use of LAMA in combination of what she is presently taking CXR if no improvement [facility] Other 08-23-2023 Evaluation note* Encounter Date Diagnosis Assessment Notes Treatment Notes Treatment Clinical Notes Oct, Mild persistent asthma, uncompli cated (ICD-10 - J45.30) [facility] Other 08-17-2023 Evaluation note* Encounter Date Diagnosis [...] understanding and is agreeable to treatment plan [facility] Other 04-12-2023 NotePROCEDURE: XR FOOT RT MIN [...] Electronically authenticated by: JEROME ESPINOSA Date: 2022-06-27 15:36[facility]03-02-2023 NotePROCEDURE: XR FOOT RT MIN 3 [...] Electronically authenticated by: CAMPOS ERAZO Date: 2022-05-17 16:27[facility]02-09-2023 NotePROCEDURE: XR FOOT RT MIN 3 [...] Electronically authenticated by: JEROME ESPINOSA Date: 2022-04-26 09:37[facility]01-19-2023 NotePROCEDURE: XR FOOT RT MIN 3 [...] Electronically authenticated by: JEROME ESPINOSA Date: 2022-04-05 14:43[facility]01-19-2023 NotePROCEDURE: XR FOOT RT 2V HISTORY: [...] Electronically authenticated by: JEROME ESPINOSA Date: 2022-04-05 14:41[facility]01-11-2023 NotePROCEDURE: XR FOOT RT MIN 3 [...] Electronically authenticated by: JEROME ESPINOSA Date: 2022-03-28 10:17[facility]12-26-2022 NotePROCEDURE: XR FOOT RT MIN 3 [...] Electronically authenticated by: JEROME ESPINOSA Date: 2022-03-12 09:46[facility]12-19-2022 Evaluation note* Encounter Date Diagnosis Assessment Notes Treatment Notes Treatment Clinical Notes Feb, Acute pain of left shoulder (ICD -10 - M25.512) Feb,Tear of left supraspinatus tendon (ICD-10 - M75.102)A 1/1cc marcaine / kenalog cortisone injection was performed into the subacromial space under sterile technique. Patient tolerated the injection well with no adverse reaction. [facility] Other 09-16-2022 Hospital Discharge instructions Patient Education [...] nerve stimulation). For women, using a medical pathologist to prevent urine leaks. This is a [...] right after experiencing incontinence. General instructions Take pzfp-sln-pbuomyt and prescription medicines only as told by [...] 04/11/2005 Document Revised: 03/14/2018 Document Reviewed: 06/13/2017 [employer] Patient Education 2020 [employer]. Follow Up Care 10/20/2021 08:23:44 With:Asuncion Buchanan MD, URL, URO Address: When: Unknown [facility] 2022 Evaluation note* Encounter Date [...] the injection well with no adverse reaction. [facility] Other Evaluation + Plan note Future Appointments Appointment Date:01/31/2022 08:00:00 AM Scheduled Provider:Asuncion Buchanan MD Location:[facility] Appointment Type:URO Office Visit [facility] Evaluation + Plan note Future Appointments Appointment Date:02/19/2024 08:00:00 AM Scheduled Provider:Asuncion Buhcanan MD Location:[facility] Appointment Type:URO Office Visit [facility] evaluation + Plan note Future Appointments Appointment Date:05/22/2023 08:00:00 AM Scheduled Provider: Location:[facility] Appointment Type:Surgery FT Appointment Date:02/19/2024 08:00:00 AM Scheduled Provider:Asuncion Buchanan MD Location:[facility] Appointment Type:URO Office Visit [facility] Evaluation + Plan note Future Appointments Appointment Date:07/23/2023 08:00:00 AM Scheduled Provider: [facility] Appointment Type:CT Sinus/Orbits/Maxillofacial (FT) Appointment Date:02/19/2024 08:00:00 AM Scheduled Provider:Asuncion Buchanan MD Location:[facility] Appointment Type:URO Office Visit Future Scheduled Tests Radiology* XR Abdomen 1 View 07/04/23 * CT Maxillofacial w/o Contrast 07/23/23 [facility] Evaluation + Plan note Future Appointments Appointment Date:07/23/2023 08:00:00 AM Scheduled Provider: [facility] Appointment Type:CT Sinus/Orbits/Maxillofacial (FT) Appointment Date:02/19/2024 08:00:00 AM Scheduled Provider:Asuncion Buchanan MD Location:[facility] Appointment Type:URO Office Visit Future Scheduled Tests Radiology* CT Maxillofacial w/o Contrast [facility]ments Appointment Date:07/23/2023 08:00:00 AM Scheduled Provider: [facility] Appointment Type:CT Sinus/Orbits/Maxillofacial (FT) Appointment Date:08/15/2023 08:15:00 AM Scheduled Provider:Del Nettles MD Location[place] Appointment Type:[facility] Follow Up Appointment Date:02/19/2024 08:00:00 AM Scheduled Provider:Asuncion Buchanan MD Location:[facility] Appointment Type:URO Office Visit Future Scheduled Tests Radiology* CT Maxillofacial w/o Contrast 07/23/23 [facility] Evaluation + Plan note Future Appointments Appointment Date:08/15/2023 08:15:00 AM Scheduled Provider:Del Nettles MD Location:[facility] Appointment Type:BADH Follow Up Appointment Date:02/19/2024 08:00:00 AM Scheduled Provider:Asuncion Buchanan MD Location:[facility] Appointment Type:[facility]O [facility] Future Appointments Appointment Date:02/05/2024 10:45:00 AM Scheduled Provider:Asuncion Buchanan MD Location:[facility] Appointment Type:URO Office Visit [facility] evaluation + Plan note Future Appointments Appointment Date:02/05/2024 10:45:00 AM Scheduled Provider:Asuncion Buchanan MD Location:[facility] Appointment Type:URO Office Visit Diagnostic Tests Pending * Urine Culture 12/27/23 [facility] Evaluation + Plan note Future Appointments Appointment Date:02/17/2024 09:00:00 AM Scheduled Provider: Location:[facility] Appointment Type:Urology CALL PAT FT Appointment Date:02/24/2024 09:30:00 AM Scheduled Provider: Location:[facility] Appointment Type:Urology FT [facility] evaluation + Plan note Future Appointments Appointment Date:04/07/2024 09:30:00 AM Scheduled Provider: Location:[facility] Surgical Services Appointment Type:Surgery FT Appointment Date:04/22/2024 10:45:00 AM Scheduled Provider:Asuncion Buchanan MD Location:[facility] Appointment Type:URO Office Visit Diagnostic Tests Pending * Urine Culture 03/24/24 [facility] Evaluation + Plan note Future Appointments Appointment Date:04/22/2024 10:45:00 AM Scheduled Provider:Asuncion Buchanan MD Location:[facility] Appointment Type:URO Office Visit [facility] evaluation + Plan note Future Appointments Appointment Date:05/20/2024 07:30:00 AM Scheduled Provider: Location:[facility] Surgical Services Appointment Type:Surgical PAT FT Appointment Date:06/02/2024 09:30:00 AM Scheduled Provider: Location:[facility] Surgical Services Appointment Type:Surgery FT [facility] evaluation + Plan note Future Appointments Appointment Date:06/02/2024 09:30:00 AM Scheduled Provider: Location:[facility] Surgical Services Appointment Type:Surgery FT Diagnostic Tests Pending * Urine Culture 05/20/24 [facility] Evaluation + Plan note Future Appointments Appointment Date:11/05/2024 08:15:00 AM Scheduled Provider:Del Nettles MD Location:[facility] Appointment Type:BAD Follow Up [facility] Evaluation noteNo InformationNort [employer] Other Evalumxsac noteNo assessment information [facility] Work Phone: Evalummdxz note* Diagnosis Other partial intestinal obstruction (HCC)- Primary [facility] Diagnosis Other partial intestinal obstruction (HCC) [facility] Diagnosis Iron deficiency anemia due to chronic blood loss- Primary Iron deficiency anemia secondary to blood loss (chronic) Abnormal finding on GI tract imaging Nonspecific (abnormal) findings on radiological and other examination of gastrointestinal tract documented [facility]* Diagnosis Chronic maxillary sinusitis- Primary Chronic pansinusitis Other chronic sinusitis documented in this encounter [facility]* Diagnosis Keratoconjunctivitis sicca of both eyes not specified as Sjogren's- Primary Blepharitis of upper and lower eyelids of both eyes, unspecified type Bilateral posterior capsular opacification Unspecified after-cataract [facility] Diagnosis Chronic maxillary sinusitis- Primary Chronic ethmoiditis Chronic ethmoidal sinusitis Chronic cough Cough Asthma, unspecified asthma severity, unspecified whether complicated, unspecified whether persistent (HHS-HCC) documented in this encounter [facility] Work Phone: Evaluation note* Diagnosis Encounter for gynecological examination without abnormal finding Screening for malignant neoplasm of cervix Screening for malignant neoplasm of the cervix Encounter for screening mammogram for breast cancer Lichen sclerosus et atrophicus Circumscribed scleroderma Screening for osteoporosis Special screening for osteoporosis Postmenopausal status, age-related documented in this encounter [facility] HealthcareEvaluation note* Diagnosis Chronic maxillary sinusitis- Primary documented in this encounter [facility] Healthcare[facility] note* Diagnosis Iron deficiency anemia due to chronic blood loss Iron deficiency anemia secondary to blood loss (chronic) Abnormal finding on GI tract imaging Nonspecific (abnormal) findings on radiological and other examination of gastrointestinal tract documented [facility]* Diagnosis 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 [facility]* Diagnosis Onset Date Resolution Status Admit Date Osteoporosis acuteOctober 2024 9:42am [facility] Work Phone: Evaluation note* Diagnosis Peripheral eosinophilia- Primary Chronic maxillary sinusitis Cough variant asthma (HCC) Cough variant asthma [facility] N[facility]ative - Reported* Type Description Date Medical History high cholestrol Medical Historygraves diseaseMedical HistoryasthmaMedical HistoryulcerMedical Historymigranes and tension headachesMedical HistoryarthritisMedical History osteoporosisSurgical Historyd and cSurgical Historyc sectionsSurgical History torn right wrist cartligeSurgical Historynuclear med to kill thyroidSurgical Historycolonoscopy and egdSurgical Historygall bladder removedSurgical History tubal ligationSurgical Historyrotator cuff and bicep mqozun14/2019 Hospitalization Historysee aboveHospitalization Historyblood transfusion from bleeding ulcer Appoet Other History general Narrative - Reported* Type Description Date Medical History high cholestrol Medical Historygraves diseaseMedical HistoryasthmaMedical HistoryulcerMedical Historymigranes and tension headachesMedical HistoryarthritisMedical History osteoporosisSurgical Historyd and cSurgical Historyc sectionsSurgical History torn right wrist cartligeSurgical Historynuclear med to kill thyroidSurgical Historycolonoscopy and egdSurgical Historygall bladder removedSurgical History tubal ligationSurgical Historyrotator cuff and bicep tywstg59/2019Surgical HistoryORIF right 5th MT fracture04/06/22Hospitalization Historysee above Hospitalization Historyblood transfusion from bleeding ulcer Appoet Other History general Narrative - Reported* Type Description Date Medical History high cholestrol Medical Historygraves diseaseMedical HistoryasthmaMedical HistoryulcerMedical Historymigranes and tension headachesMedical HistoryarthritisMedical History osteoporosisMedical HistoryRight metatarsal fracture - 03/2022Surgical Historyd and cSurgical Historyc sectionsSurgical Historytorn right wrist cartligeSurgical Historynuclear med to kill thyroidSurgical Historycolonoscopy and egdSurgical Historygall bladder removedSurgical Historytubal ligationSurgical Historyrotator cuff and bicep oqijnv06/2019Surgical HistoryORIF right 5th MT fracture04/06/22 Hospitalization Historysee aboveHospitalization Historyblood transfusion from bleeding ulcer Appoet Other [employer] Simplified general Narrative - Reported* Type Description Date Medical History high cholestrol Medical Historygraves diseaseMedical HistoryasthmaMedical HistoryulcerMedical Historymigranes and tension headachesMedical HistoryarthritisMedical History osteoporosisMedical HistoryRight metatarsal fracture - 03/2022Surgical Historyd and cSurgical Historyc sectionsSurgical Historytorn right wrist cartligeSurgical Historynuclear med to kill thyroidSurgical Historycolonoscopy and egdSurgical Historygall bladder removedSurgical Historytubal ligationSurgical Historyrotator cuff and bicep duvmcp29/2019Surgical HistoryORIF right 5th MT fracture04/06/22 Surgical Historycataract b/lHospitalization Historysee aboveHospitalization Historyblood transfusion from bleeding ulcer Appoet Other History general Narrative - Reported* Type Description Date Medical History high cholestrol Medical Historygraves diseaseMedical HistoryasthmaMedical HistoryulcerMedical Historymigranes and tension headachesMedical HistoryarthritisMedical History osteoporosisMedical HistoryRight metatarsal fracture - 03/2022Surgical Historyd and cSurgical Historyc sectionsSurgical Historytorn right wrist cartligeSurgical Historynuclear med to kill thyroidSurgical HistoryEGD, [id number] Historygall bladder removedSurgical Historytubal ligationSurgical Historyrotator cuff and bicep grumms87/2019Surgical HistoryORIF right 5th MT fracture04/06/22 Surgical Historycataract b/lHospitalization Historysee aboveHospitalization Historyblood transfusion from bleeding ulcer Appoet Other Hospital course Narrative No data available for this section [facility] [employer] [facility] Discharge instructions No data available for this section [facility] Progress note No data available for this section [facility] [employer] Reason for referral (narrative)* Reason *FU 04/23 Referral for iron deficiency anemia. Diagnosis 1 Iron deficiency anem ia secondary to inadequate dietary iron intake (D50.8) Referral Organization [facility] kenny Referring Provider First Name Andrea Referring Provider Last Name [place] Referring Provider Specialty Internal [facility] Referred Organization [facility] Referred Provider CHRISSY HECTOR Referred Address [address] [place], [place],[address] Referred Provider Specialty Hematology Referral Priority Routine [...] referral faxed Clinical NotesInclude labs results p: [id number] f: [id number] Reason Referral for pe rsistent cough and wheezing Diagnosis 1 Moderate persistent asthma with acute exacerbation (J45.41) Referral Organization [facility] [place] cox Referring Provider First Name Andrea Referring Provider Last Name [place] Referring Provider Specialty Internal Me dicine Referred Organization [facility] Referred Provider Edouard Espinosa Referred Address [address] [place], [place],[address] Referred Provider Specialty Pulmonary Di seases Referral Priority Routine General Notes Patient w/ allergic rhinitis and asthma w/ deterioration of her symptoms over the past year. Her medications have been maximized and alternative etiology for cough and wheezing addressed. She has been referred to an Rn Medical Surgical for evaluation and scheduled for a PFT. Alla Castillo 04/16/2023 10:39:47 AM >received today, waiting for notes to be locked, and for CXR LABS AND PFT TO BE COMPLETED Shannan Weinberg 04/18/2023 09:54:53 AM > Patient is [facility] [place] CX[place], labs and PFT when completed Reason *FU 04/24 Referral for opinion on further testing for iron deficiency anemia Diagnosis 1 Iron deficiency anem ia secondary to inadequate dietary iron intake (D50.8) Referral Organization [facility] [place] cox Referring Provider First Name Andrea Referring Provider Last Name [place] Referring Provider Specialty Internal Me dicine Referred Organization [facility] Referred Address [address] [address] [address],[place], [place],[address] Referred Provider Specialty Gastroentero logy Referral Priority [...] attachments made, notes locked, referral faxedClinical Notesf: [phone] [place] [employer] Other Reason for referral (narrative)* Reason *FU 04/23 Referral for iron deficiency anemia. Diagnosis 1 Iron deficiency anem ia secondary to inadequate dietary iron intake (D50.8) Referral Organization [facility] [employer] kenny Referring Provider First Name Andrea Referring Provider Last Name [place] Referring Provider Specialty Internal Me dicine Referred Organization [facility] Referred Provider CHRISSY HECTOR Referred Address [address] [place], [place],[address] Referred Provider Specialty Hematology Referral Priority Routine [...] referral faxed Clinical NotesInclude labs results p: [id number] f: [id number] Reason Referral for pe rsistent cough and wheezing Diagnosis 1 Moderate persistent asthma with acute exacerbation (J45.41) Referral Organization [facility] [employer] kenny Referring Provider First Name Andrea Referring Provider Last Name [place] Referring Provider Specialty Internal Dc dicine Referred Organization [facility] Referred Provider Edouard Espinosa Referred Address [address] [place], [place],[address] Referred Provider Specialty Pulmonary Di seases Referral Priority Routine General Notes Patient w/ allergic rhinitis and asthma w/ deterioration of her symptoms over the past year. Her medications have been maximized and alternative etiology for cough and wheezing addressed. She has been referred to an Rn Medical Surgical for evaluation and scheduled for a PFT. Alla Castillo 04/16/2023 10:39:47 AM >received today, waiting for notes to be locked, and for CXR LABS AND PFT TO BE COMPLETEDClinical NotesInclude CXR, labs and PFT when completed Reason Referral for opinion on further testing for iron deficiency anemia Diagnosis 1 Iron deficiency anem ia secondary to inadequate dietary iron intake (D50.8) Referral Organization [facility] kenny Referring Provider First Name Andrea Referring Provider Last Name [place] Referring Provider Specialty Internal Me dicine Referred Organization [facility] Referred Address [address],[place], [place],[address] Referred Provider Specialty Gastroentero logy Referral Priority [...] to Hematology for IV iron and evaluation. [employer] Other Reason for referral (narrative)* Diagnostic Procedure Only (Routine) - ClosedSpecialtyDiagnoses / ProceduresReferred By Contact Referred To ContactXR IMAGING Diagnoses Other partial intestinal obstruction (HCC) Procedures XR SMALL BOWEL SERIES RADIOLOGIC EXAM SMALL INT SINGLE CONTRAST STUDY [facility] [address] [place], [place] [id number] Xr Imaging [place] [address] Referral IDStatusReasonStart DateExpiration DateVisits RequestedVisits [id number] Auto-Generated Referral [facility] for referral (narrative)* Outpatient Procedure (Routine) - New RequestSpecialtyDiagnoses / ProceduresReferred By ContactReferred To [facility]GE[facility] Diagnoses Iron deficiency anemia due to chronic blood loss Abnormal finding on GI tract imaging Procedures ENTEROSCOPY ENTEROSC >2ND PRTN W/ILEUM W/BX SINGLE/MULTIPLE UNLISTED PROCEDURE SMALL INTESTINE [facility] [address] [place] [address] [facility] [address] [place] [address] Referral IDStatusReasonStart DateExpiration DateVisits RequestedVisits [id number] Request Auto-Generated Referral [facility] (narrative)No reason for referral information availableFirelands [facility] Medical [facility] Work Phone: Reason for visit Narrative* Outpatient Procedure (Routine) - ClosedSpecialtyDiagnoses / ProceduresReferred By ContactReferred To [facility] Diagnoses Iron deficiency anemia due to chronic blood loss Abnormal finding on GI tract imaging Procedures ENTEROSCOPY ENTEROSC >2ND PRTN W/ILEUM W/BX SINGLE/MULTIPLE UNLISTED PROCEDURE SMALL INTESTINE [place] [address] Phone: tel: fax: [facility] [address] [place] [address] Referral IDStatusReasonStsacred heart DateExpiration DateVisits RequestedVisits [id number] Auto-Generated Referral [facility] Chief Complaint and Reason for Visit Chief [...] Date Osteoporosis December 22, 2024 9: 42am Chief Complaint Admit Date back pain December 22, 2024 9: 42am M25.512 - Pain in left shoulder January 25, 2025 9:25am OP SP LT SHOULDER PAIN REQ INJ January 25, 2025 10:40am Reason for Visit Admit Date Low back pain December 22, 2024 9: 42am Lumbar spondylosis December 22, 2024 9: 42am Osteoporosis December 22, 2024 9: 42am Tear of left supraspinatus tendon Novemb er 2024 10:40am Family History Relationship Condition Age at Onset [...] Time Advance Directives No September 08 7:51am Summary Purpose Reason for Referral SpecialtyDiagnoses / ProceduresReferred By ContactReferred To ContactCT IMAGING Diagnoses Other partial intestinal obstruction (HCC) Procedures CT ENTEROGRAPHY W IVCON CT ABD & PELVIS W/CONTRAST Kasey Fallon MD [facility] [address] [place], [place] [id number] Ct Imaging [place] [address] Referral IDStatusReasonStsacred heart DateExpiration DateVisits RequestedVisits [id number] Request Auto-Generated Referral / Additional Source Comments REASON FOR VISIT (unrecogniz ed section and content) ReasonCommentsConsultReasonCommentsPatient QuestionReasonCommentshelp rescheduling GI testReasonCommentsRadio GI Main WS6LsswdplnpWcwwmezbd / ProceduresReferred By ContactReferred To ContactXR IMAGING Diagnoses Other partial intestinal obstruction (HCC) Procedures XR SMALL BOWEL SERIES RADIOLOGIC EXAM SMALL INT SINGLE CONTRAST STUDY Kasey Fallon MD [facility] [address] [place] [address] Xr Imaging [place] [address] Referral IDStatusReasonStsacred heart DateExpiration DateVisits RequestedVisits [id number] Auto-Generated Referral [id number] PatientDouble balloonReasonComments Follow-upPt here for follow up [...] referring physician regarding a substitute for GatoradeReasonOnset SwnxVfcypzdqynakay14/14/2025 ReasonCommentsFollow-upApril 2024 Colonoscopy, July 2024 bladder bulking surgery. Pt states she has a lot of drainage whichis causing her to cough. Care Teams (unrecognized sec tion and content) Team Status: Active Member Role Status Dates Andrea Golden DO Primary Care Provider Active Team Status: Active Member Role Status Dates Andrea Golden DO Primary Care Provider Active Start: May 23, 2023 Lisa Jenkins ProviderActiveStart: May 23, 2023 Team Status: Active Member Role Status Dates Andrea Golden DO Primary Care Provider Active Start: May 23, 2023 CORRIE RojoAAtanoop ProviderActiveStart: May 23, 2023 Team Status: Inactive [...] Start: August 20, 2023 End: August 20, 2023Gladis Mitchell Arabella Belle ProviderActiveStart: August 20, 2023 End: August 20, 2023 Team Status: Inactive Member Role Status Dates Espinoza Ruiz MD Attending Provider Active Team MemberRelationshipSpecialtyStart DateEnd Date Andrea Golden MD [address] [place] [address] PCP - GeneralInternal Medicine08/27/22 Team Status: Inactive Member Role Status Dates Andrea Golden DO Attending Provider Active Sta rt: April 16, 2023 End: April 16, 2023Team MemberRelationshipSpecialtyStart DateEnd Date Andrea Golden DO [address] [place] [address] PCP - GeneralInternal Wykxfdwz99/11/24 Jones Ace MD [address] [place] [address] Internal Lfepkajp10/11/24 Chrissy Hector MD [address] [id number] Hematology/Qeeagyek54/11/24Team MemberRelationshipSpecialtyStart DateEnd Date Andrea Golden MD PCP - GeneralInternal Medicine08/27/22Team MemberRelationshipSpecialtyStart Date End Date Andrea Golden MD PCP - GeneralInternal Medicine08/27/22 Team Status: Active Member Role Status Dates Andrea Golden , DO Primary Care Provider Active Start: November 22, 2023 Chrissy Hector MDAttnico ProviderActiveStart: November 22, 2023 Team Status: Active Member Role Status Dates Andrea Goldne DO Primary Care Provide r, Attending Provider Active Start: January 29, 2024 Team Status: Inactive Member Role Status Dates Andrea Golden , DO Primary Care Provide r, Attending Provider [...] End Date Andrea Golden DO [address] [place] [address] PCP - GeneralInternal Pfxlxzrl26/11/24 Jones Ace MD [address] [place] [address] Internal Sbdgwtck96/11/24 Chrissy Hector MD [address] [place] [address] Hematology/Wtnijmyg32/11/24Team MemberRelationshipSpecialtyStart DateEnd Date Andrea Golden DO [address] [place] [address] PCP - GeneralInternal Urypiypc15/11/24 Jones Ace MD [address] [place] [address] Internal Byweyosd78/11/24 Chrissy Hector MD [address] [place] [address] Hematology/Bryljoyx14/11/24Team MemberRelationshipSpecialtyStart DateEnd Date Andrea Golden DO [address] [place] [address] PCP - GeneralInternal Zlllcxbz78/11/24 Jones Ace MD [address] [place] [address] Internal Dcoyvtnx55/11/24 Chrissy Hector MD [address] [place] [place] [address] Hematology/Idlriemx08/11/24Team MemberRelationshipSpecialtyStart DateEnd Date Andrea Golden DO [address] [place] [facility] [place] [address] PCP - GeneralInternal Pqexdzul90/11/24 Jones Ace MD [address] [place] [address] Internal Keqzcrno28/11/24 Chrissy Hector MD [address] [place] [place] [address] Hematology/Hqkpahyj09/11/24Team MemberRelationshipSpecialtyStart DateEnd Date Andrea Golden DO [address] [place] [facility] [place] [address] PCP - GeneralInternal Zdawsmzz15/11/24 Jones Ace MD [address] [place] [address] Internal Nysqmrpb51/11/24 Chrissy Hector MD [address] [place] [address] Hematology/Fnjrexcw64/11/24Team MemberRelationshipSpecialtyStart DateEnd Date Andrea Golden DO [address] [place] [address] PCP - GeneralInternal Uagoxopq13/11/24 Jones Ace MD [address] [place] [address] [address] [place] [address] Internal Izjzkfqc24/11/24 Chrissy Hector MD [address] [place] [address] Hematology/Utlrtfcl07/11/24Team MemberRelationshipSpecialtyStart DateEnd Date Andrea Golden DO PCP - GeneralInternal Medicine08/27/22 Team Status: Active Member Role Status Dates Andrea Golden DO Primary Care Provider Active Start: October 02, 2024 Abe Mojica DOAttnico ProviderActiveStart: October 02, 2024 Team Status: Inactive Member Role Status Dates Andrea Golden DO Primary Care Provider Active Start: December 22, 2024 End: December 22genny Golden DOAttending ProviderActiveStart: December 22, 2024 End: December 22, 2024Team MemberRelationshipSpecialtyStart DateEnd Date Andrea Golden DO PCP - GeneralInternal Medicine08/27/22Team MemberRelationshipSpecialtyStart Date End Date Andrea Golden DO PCP - GeneralInternal Medicine08/27/22Team MemberRelationshipSpecialtyStart Date End Date Andrea Golden DO PCP - GeneralInternal Medicine08/27/22 Team Status: Active Member Role/Relationship Status Dates Andrea Golden DO Primary Care Provider Active Team Status: Inactive Member Role/Relationship Status Dates Andrea DO [place] Primary Care Provider Active Start: December 22, 2024 End: December 22sterlingida Golden DOAttnico ProviderActiveStart: December 22, 2024 End: December 22, 2024 Team Status: Active Member Role/Relationship Status Dates Andrea DO [place] Primary Care Provider Active Start: January 19, 2025 Chrissynoel Hector YONNYttending ProviderActiveStart: January 19, 2025 Team Status: Active Member Role/Relationship Status Dates Espinoza Ruiz MD Attending Provider Active Star t: January 25, 2025 LONG [place] Care ProviderActiveStart: January 25, 2025 Team Status: Inactive Member Role/Relationship Status Dates Andrea Golden DO Primary Care Provider Active Start: January 25, 2025 End: January 25, 2025Thzaina Ruiz YONNYttending ProviderActiveStart: January 25, 2025 End: January 25, 2025 Team Status: Inactive Member Role/Relationship Status Dates Espinoza Ruiz MD Attending Provider Active Star t: January 25, 2025 End: January 25shahramkrystal Golden , LONGrimary Care ProviderActiveStart: January 25, 2025 End: January 25, 2025 Goals (unrecognized section and content) Goals may be documented in a n alternate section INFORMATION SOURCE (unrecogn ized section and content) DATE CREATED AUTHOR 07/02/2022 [facility] DATE CREATED AUTHOR AUTHOR'S ORGANIZ ATION 09/07/2023 [facility] DATE CREATED AUTHOR AUTHOR'S ORGANIZ ATION 09/15/[address] [facility] DATE CREATED AUTHOR AUTHOR'S ORGANIZ ATION 10/12/2023 [facility] DATE CREATED AUTHOR AUTHOR'S ORGANIZ ATION 11/10/2023 [facility] DATE CREATED AUTHOR AUTHOR'S ORGANIZ ATION 01/01/2024 [facility] DATE CREATED AUTHOR AUTHOR'S ORGANIZ ATION 02/08/2024 [facility] DATE CREATED AUTHOR AUTHOR'S ORGANIZ ATION 02/27/2024 [facility] DATE CREATED AUTHOR AUTHOR'S ORGANIZ ATION 03/30/2024 [facility] DATE CREATED AUTHOR AUTHOR'S ORGANIZ ATION 03/31/2024 [facility] DATE CREATED AUTHOR AUTHOR'S ORGANIZ ATION 04/10/2024 [facility] DATE CREATED AUTHOR AUTHOR'S ORGANIZ ATION 04/19/2024 [facility] DATE CREATED AUTHOR AUTHOR'S ORGANIZ ATION 04/24/2024 [facility] DATE CREATED AUTHOR AUTHOR'S ORGANIZ ATION 05/21/2024 [facility] DATE CREATED AUTHOR AUTHOR'S ORGANIZ ATION 05/22/2024 [facility] DATE CREATED AUTHOR AUTHOR'S ORGANIZ ATION 05/24/2024 [facility] DATE CREATED AUTHOR AUTHOR'S ORGANIZ ATION 07/23/2024 [facility] DATE CREATED AUTHOR AUTHOR'S ORGANIZ ATION 12/18/2024 [facility] DATE CREATED AUTHOR AUTHOR'S ORGANIZ ATION 12/29/2024 [facility] DATE CREATED AUTHOR AUTHOR'S ORGANIZ ATION 01/27/2025 [facility] Source Comments (unrecognize d section and content) In the event this informatio n is protected by the Federal Confidentiality of Alcohol and Drug Abuse Patient Records regulations: The Federal rules restrict any use of the information to criminally investigate or prosecute any alcohol or drug abuse patient.[facility] the event this information is protected by the Federal Confidentiality of Alcohol and Drug Abuse Patient Records regulations: The Federal rules restrict any use of the information to criminally investigate or prosecute any alcohol or drug abuse patient.[facility] the event this information is protected by the Federal Confidentiality of Alcohol and Drug Abuse Patient Records regulations: The Federal rules restrict any use of the information to criminally investigate or prosecute any alcohol or drug abuse patient.[facility] the event this information is protected by the Federal Confidentiality of Alcohol and Drug Abuse Patient Records regulations: The Federal rules restrict any use of the information to criminally investigate or prosecute any alcohol or drug abuse patient.[facility] the event this information is protected by the Federal Confidentiality of Alcohol and Drug Abuse Patient Records regulations: The Federal rules restrict any use of the information to criminally investigate or prosecute any alcohol or drug abuse patient.[facility] the event this information is protected by the Federal Confidentiality of Alcohol and Drug Abuse Patient Records regulations: The Federal rules restrict any use of the information to criminally investigate or prosecute any alcohol or drug abuse patient.[facility] the event this information is protected by the Federal Confidentiality of Alcohol and Drug Abuse Patient Records regulations: The Federal rules restrict any use of the information to criminally investigate or prosecute any alcohol or drug abuse patient.[facility] the event this information is protected by the Federal Confidentiality of Alcohol and Drug Abuse Patient Records regulations: The Federal rules restrict any use of the information to criminally investigate or prosecute any alcohol or drug abuse patient.[facility] the event this information is protected by the Federal Confidentiality of Alcohol and Drug Abuse Patient Records regulations: The Federal rules restrict any use of the information to criminally investigate or prosecute any alcohol or drug abuse patient.[facility] the event this information is protected by the Federal Confidentiality of Alcohol and Drug Abuse Patient Records regulations: The Federal rules restrict any use of the information to criminally investigate or prosecute any alcohol or drug abuse patient.[facility] the event this information is protected by the Federal Confidentiality of Alcohol and Drug Abuse Patient Records regulations: The Federal rules restrict any use of the information to criminally investigate or prosecute any alcohol or drug abuse patient.[facility] the event this information is protected by the Federal Confidentiality of Alcohol and Drug Abuse Patient Records regulations: The Federal rules restrict any use of the information to criminally investigate or prosecute any alcohol or drug abuse patient.[facility] the event this information is protected by the Federal Confidentiality of Alcohol and Drug Abuse Patient Records regulations: The Federal rules restrict any use of the information to criminally investigate or prosecute any alcohol or drug abuse patient.[facility] FOR RECORDS PERTAINING TO PATIENTS WHO [...] BE BASED ON THE PRIMARY CLINICAL RECORDS. [facility]. provides no warranty or guarantee of the accuracy or completeness of information in this document.
--- NOTE | 2025-02-25 09:19 | XR_ITS ---
The [address] [address] Patient Name: SIA ALEXANDER MRN: [id number] date: 1950 Sex: F Assigned Patient Location: [facility] Current Patient Location: [facility] Accession/Order Number: [id number] Exam Date: 02/25/2025 09:10 Report Date: 02/25/2025 09:40 At the request of: CHUNG GOLDEN DO Procedure: XR cervical spine w flex/ext CERVICAL SPINE WITH FLEXION AND EXTENSION VIEWS - 7 views: CLINICAL HISTORY: Neck Pain, Recurrent Occipital Headache COMPARISON: CT neck 05/07/2023 TECHNIQUE: AP, lateral (neutral, flexion, extension) both oblique and odontoid views were obtained. FINDINGS: There is no evidence of fracture. There is slight retrolisthesis of C4 on C5. This does not change with flexion or extension however minor motion is seen at C3-4 on those views. There is mild disc space narrowing at C4-5 and moderate at C5-6 and C6-7. Small endplate spurs are present, greatest posteriorly at C5-6. Facet hypertrophy is also seen. There is mild to moderate neural foraminal narrowing at C6-7 on the left. On the right, there could be mild bony foraminal encroachment at C4-5 and moderate at C5-6 and C6-7. The disc spaces are preserved. There is no significant bony hypertrophy. The atlantoaxial relationship is preserved. There is no prevertebral soft tissue swelling. XR/XR cervical spine w flex/ext IMPRESSION: DEGENERATIVE CHANGES, DESCRIBED Impression dictated by: Noemí Roibn M.D. 02/25/2025 9:40 AM Dictation Location: [place] Electronically authenticated by: [id number] Y Date: 02/25/2025 09:40
== END 2025-02-25 09:01 | disposition home or self-care (01) ==
LOC: RAD 09:00
PROVIDERS: PCP Internal Medicine; Visit Provider Internal Medicine
DX: M54.2 Cervicalgia (principal); R51.9 Headache, unspecified; I10 Essential (primary) hypertension; M81.0 Age-related osteoporosis without current pathological fracture; E89.0 Postprocedural hypothyroidism; E78.5 Hyperlipidemia, unspecified
CPT/HCPCS: 72052

== ENCOUNTER 2025-03-16 07:21 | Outpatient (OUT) | payer MEDICARE, OTHER, SELFPAY ==
--- OUTSIDE RECORDS SUMMARY | 2023-11-26 03:30 | XMS_ITS ---
Author Organization [facility] [place] Address [address] [place] [address] Care Team Providers Care Metal Dealer Name Role Phone Andrea Wu DO Primary Care Provider Unavaila Chrissy Ortiz [phone] REASON FOR VISIT MD Encounters Encounter Location Date Provider Diagnosis [facility] Oncology [address] [place] [phone] 11/26/2023 Chrissy Orozco Plan Of Treatment No Information Progress Notes * Ivory CHESTEROB:[birth year] (74 yo F)Acc No.[id number]:11/26/2023 UNLOCKED PROGRESS NOTE Progress Notes Patient: Munira CHAIDEZ :?Chrissy Hector M.D.:1950???Age:73 Y ???Sex:FemaleDate:4Phone:[phone]:[address] [place] [address], [place], [id number]:Andrea Wu DO Subjective: * Chief Complaints: * 1 . MD. * Medical History: Objective: * Vitals: Assessment: Plan: * Treatment: * * Electronic signature of Chrissy Orozco MD, [id number] on 03/16/2025 at 07:24 AM ESTSign off status: PendingVisit Status:?CONFSMS (Voice) * Provider: Racheal Hector M.D. Date: 0 11/26/2023 Generated for Printing/Faxing/eTransmitting on:?03/16/2025 07:24 AM EST
--- OUTSIDE RECORDS SUMMARY | 2024-02-18 03:00 | XMS_ITS ---
Author Organization [facility] [place] Address [address] [place] [address] Care Team Providers Care Yoke Setter Name Role Phone Andrea Wu DO Primary Care Provider UnavailChrissy Gutierrez [phone] REASON FOR VISIT MD Encounters Encounter Location Date Provider Diagnosis [facility] Oncology [address] [place] [phone] 02/18/2024 Chrissy Orozco Plan Of Treatment No Information Progress Notes * Ivory CHESTEROB:[birth year] (74 yo F)Acc No.[id number]:02/18/2024 UNLOCKED PROGRESS NOTE Progress Notes Patient: Munira CHAIDEZ :?Chrissy Hector M.D.:1950???Age:73 Y ???Sex:FemaleDate:02/18/2024hone:[phone]:[address] [place] [address], [place], [id number]:Andrea Wu DO Subjective: * Chief Complaints: * 1 . MD. * Medical History: Objective: * Vitals: Assessment: Plan: * Treatment: * * Electronic signature of Chrissy Orozco MD, [id number] on 03/16/2025 at 07:25 AM ESTSign off status: PendingVisit Status:?CANC (Cancelled) * Provider: Racheal Hector M.D. Date: 04/20/2023 Generated for Printing/Faxing/eTransmitting on:?03/16/2025 07:25 AM EST
--- OUTSIDE RECORDS SUMMARY | 2024-02-25 03:15 | XMS_ITS ---
Author Organization [facility] in [place] Address [address] [place] [address] Care Team Providers Care Tea Blender Name Role Phone Andrea Wu DO Primary Care Provider Unavaila Chrissy Ortiz [phone] REASON FOR VISIT MD Encounters Encounter Location Date Provider Diagnosis [facility] [address] [place] [phone] 02/25/2024 Chrissy Orozco Plan Of Treatment No Information Progress Notes * Ivory CHESTEROB:[birth year] (74 yo F)Acc No.[id number]:02/25/2024 UNLOCKED PROGRESS NOTE Progress Notes Patient: Munira CHAIDEZ :?Chrissy Hector M.D.:1950???Age:73 Y ???Sex:FemaleDate:4Phone:[phone]:[address] [place] [address], [place], [place]-[id number]:Andrea Wu DO Subjective: * Chief Complaints: * 1 . MD. * Medical History: Objective: * Vitals: Assessment: Plan: * Treatment: * * Electronic signature of Chrissy Orozco MD, [id number] on 03/16/2025 at 07:25 AM ESTSign off status: PendingVisit Status:?CONFSMS (Voice) * Provider: Racheal Hector M.D. Date: 04/27/2023 Generated for Printing/Faxing/eTransmitting on:?03/16/2025 07:25 AM EST
--- OUTSIDE RECORDS SUMMARY | 2024-05-05 04:00 | XMS_ITS ---
Author Organization [facility] in [place] Address [address] [place] [address] Care Team Providers Care Equipment Service Lead Name Role Phone Andrea Wu DO Primary Care Provider UnavailChrissy Gutierrez [phone] REASON FOR VISIT MD Encounters Encounter Location Date Provider Diagnosis [facility] [address] [place] [phone] 05/05/2024 Chrissy Orozco Plan Of Treatment No Information Progress Notes * Ivory CHESTEROB:[birth year] (74 yo F)Acc No.[id number]:05/05/2024 UNLOCKED PROGRESS NOTE Progress Notes Patient: Munira CHAIDEZ :?Chrissy Hector M.D.:1950???Age:73 Y ???Sex:FemaleDate:05/05/2024Phone:[phone]:[address] [place] [address], [place], [place]-[id number]:Andrea Wu DO Subjective: * Chief Complaints: * 1 . MD. * Medical History: Objective: * Vitals: Assessment: Plan: * Treatment: * * Electronic signature of Chrissy Orozco MD, [id number] on 03/16/2025 at 07:24 AM ESTSign off status: PendingVisit Status:?CONFSMS (Voice) * Provider: Racheal Hector M.D. Date: 0 05/05/2024 Generated for Printing/Faxing/eTransmitting on:?03/16/2025 07:24 AM EST
--- OUTSIDE RECORDS SUMMARY | 2024-07-07 03:30 | XMS_ITS ---
Author Organization The [facility] in [place] Address [address] [place] [address] Care Team Providers Care Winding Lathe Operator Name Role Phone Andrea Wu DO Primary Care Provider UnavailChrissy Gutierrez [phone] REASON FOR VISIT MD Encounters Encounter Location Date Provider Diagnosis [facility] Oncology [address] [place] [address] 07/07/2024 Chrissy Orozco Plan Of Treatment No Information Progress Notes * Ivory CHESTEROB:[birth year] (74 yo F)Acc No.[id number]:07/07/2024 UNLOCKED PROGRESS NOTE Progress Notes Patient: Munira CHAIDEZ :?Chrissy Hector M.D.:1950???Age:73 Y ???Sex:FemaleDate:07/07/2024Phone:[phone]:[address] [place] [address], [place], [place]-[id number]:Andrea Wu DO Subjective: * Chief Complaints: * 1 . MD. * Medical History: Objective: * Vitals: Assessment: Plan: * Treatment: * * Electronic signature of Chrissy Orozco MD, [id number] on 03/16/2025 at 07:24 AM ESTSign off status: PendingVisit Status:?CANC (Cancelled) * Provider: Racheal Hector M.D. Date: 0 07/07/2024 Generated for Printing/Faxing/eTransmitting on:?03/16/2025 07:24 AM EST
--- OUTSIDE RECORDS SUMMARY | 2024-07-21 03:30 | XMS_ITS ---
Author Organization The [facility] in [place] Address [address] [place] [address] Care Team Providers Care Assistance Specialist Name Role Phone Andrea Wu DO Primary Care Provider UnavailChrissy Gutierrez [phone] REASON FOR VISIT MD Encounters Encounter Location Date Provider Diagnosis [facility] Oncology [address] [place] [address] 07/21/2024 Chrissy Orozco Plan Of Treatment No Information Progress Notes * Ivory CHESTEROB:[birth year] (74 yo F)Acc No.[id number]:07/21/2024 UNLOCKED PROGRESS NOTE Progress Notes Patient: Munira CHAIDEZ :?Chrissy Hector M.D.:1950???Age:73 Y ???Sex:FemaleDate:07/21/2024Phone:[phone]:[address] [place] [address], [place], [place]XA-[address]Uoy:Andrea Wu DO Subjective: * Chief Complaints: * 1 . MD. * Medical History: Objective: * Vitals: Assessment: Plan: * Treatment: * * Electronic signature of Chrissy Orozco MD, [id number] on 03/16/2025 at 07:25 AM ESTSign off status: PendingVisit Status:?PEN (Pending) * Provider: Racheal Hector M.D. Date: 0 07/21/2024 Generated for Printing/Faxing/eTransmitting on:?03/16/2025 07:25 AM EST
--- OUTSIDE RECORDS SUMMARY | 2024-07-21 03:30 | XMS_ITS ---
Author Organization The [facility] in [place] Address [address] [place] [address] Care Team Providers Care Telemarketing Supervisor Name Role Phone Andrea Wu DO Primary Care Provider UnavailChrissy Gutierrez [phone] REASON FOR VISIT MD Encounters Encounter Location Date Provider Diagnosis [facility] Oncology [address] [place] [address] 07/21/2024 Chrissy Orozco Plan Of Treatment No Information Progress Notes * Ivory CHESTEROB:[birth year] (74 yo F)Acc No.[id number]:07/21/2024 UNLOCKED PROGRESS NOTE Progress Notes Patient: Munira CHAIDEZ :?Chrissy Hector M.D.:1950???Age:73 Y ???Sex:FemaleDate:07/21/2024Phone:[phone]:[address] [place] [address], [place], [place]ZQ-[address]Gcy:Andrea Wu DO Subjective: * Chief Complaints: * 1 . MD. * Medical History: Objective: * Vitals: Assessment: Plan: * Treatment: * * Electronic signature of Chrissy Orozco MD, [id number] on 03/16/2025 at 07:24 AM ESTSign off status: PendingVisit Status:?CANC (Cancelled) * Provider: Racheal Hector M.D. Date: 0 07/21/2024 Generated for Printing/Faxing/eTransmitting on:?03/16/2025 07:24 AM EST
--- OUTSIDE RECORDS SUMMARY | 2025-01-26 03:30 | XMS_ITS ---
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 Name Role Phone Andrea Wu DO Primary Care Provider Unavaila AZAM Aparicio [phone] REASON FOR VISIT MD Encounters Encounter Location Date Provider Diagnosis [facility] [address] [place] [address] 01/26/2025 AZAM VILLA Plan Of Treatment No Information Progress Notes * Ivory CHESTEROB:[birth year] (74 yo F)Acc No.[id number]:01/26/2025 UNLOCKED PROGRESS NOTE Progress Notes Patient: Munira CHAIDEZ :?AZAM VILLA M.D.:1950???Age:74 Y ???Sex:FemaleDate:01/26/2025Phone:[phone]:[address] [place] [address], [place], [place]Hjo:Andrea Wu DO Subjective: * Chief Complaints: * 1 . MD. * Medical History: Objective: * Vitals: Assessment: Plan: * Treatment: * * Electronic signature of AZAM VILLA MD on 03/16/2025 at 07:24 AM ESTSign off status: PendingVisit Status:?VOICEMSG (Voice) * Provider: Racheal VILLA M.D. Date: 03/28/2024 Generated for Printing/Faxing/eTransmitting on:?03/16/2025 07:24 AM EST
--- OUTSIDE RECORDS SUMMARY | 2025-03-16 07:24 | XMS_ITS | Clinical Summary ---
Author Organization [facility] Address [address] [place], [place] [address] Care Team Providers Care Integration Engineer Name Role Phone Moustapha Haley MD Unavailable [phone] Chrissy Hector MD Unavailable [phone] Andrea Wu DO Primary Care Provider [phone] Allergies Active AllergyReactionsCriticalityNoted DateCommentsAmoxicillinOther: See Aflactmh53/11/2024Contrast Dye12/08/2007Sulfa (Sulfonamide Antibiotics) 12/08/2007 Medications MedicationSigDispense QuantityRefillsLast FilledStart DateEnd DateStatus levothyroxine sodium(SYNTHROID 100 MCG TAB) Take one(1) tablet daily.ctive fluticasone-vilanterol (BREO ELLIPTA) 100-25 mcg/dose inhaler Inhale 1 Inhalation as instructed once daily.Active EPINEPHrine (EPIPEN) 0.3 mg/0.3 mL auto-injector Inject 0.3 mg intramuscularly as needed.Active fluticasone (FLONASE) 50 mcg/actuation nasal spray Use 1 [place] in each nostril once daily.Active atorvastatin (LIPITOR) [...] ORAL) Take by mouth.Active vit A/vit C/biotin/zinc/copper (AROD-FHIF-IVOU,VIT A,C-BIOTIN, ORAL) Take by mouth.Active aspirin 325 [...] right lower extremity 04/11/2016Episodic tension-type headache, not krjxhnzchqy74/21/2016 Immunizations ImmunizationAdministration DatesNext Dueinfluenza (HD-IIV4) vaccine, age [...] 6+ mo, quadrivalent, PF (FLUCELVAX)01/05/2019influenza vaccine, unspecified zbpqanzjlkf39/02/2019pneumococcal conjugate (PCV13) vaccine, 13 valent (PREVNAR 13)01/10/2017pneumococcal polysaccharide (PPV23) vaccine, 23 valent (PNEUMOVAX 23)01/05/2019,01/04/2016respiratory syncytial virus (RSV) vaccine, adjuvanted (AREXVY)12/31/2022 Family History Medical HistoryRelationCommentsCancerFatherArthritisMaternal GrandmotherRACancer MotherRelationStatusCommentsFatherMaternal GrandmotherMother Social History Tobacco UseTypesPacks/DayYears UsedDateSmoking Tobacco: NeverSmokeless Tobacco: NeverAlcohol UseStandard Drinks/WeekCommentsNo0 (1 standard drink = 0.6 oz pure alcohol)Area Deprivation IndexAnswerDate RecordedNational Score (1-100), lower number is lower ypgp792212/27/2023State Score (1-10), lower number is lower risk4 4Data from: https://www.neighborhoodatlas.medicine.[facility].edu/. 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 DateHR managerNot on fileNot on fileNot on file Last Filed Vital Signs Vital SignReadingTime TakenCommentsBlood Kadbcvoa405/8404 3:50 PM EDT Upajm435907/13/2024 3:50 PM GBGUgkotptfoah10.5 ??C (97.7 ??F)07/13/2024 3:20 PM EDTRespiratory Fpia600207/13/2024 3:20 PM EDTOxygen Xftnlfbgqj80%07/13/2024 3:50 PM EDTInhaled Oxygen Concentration--Nbkled47.8 kg (165 lb)07/13/2024 12:52 PM QCAPebqjt336 cm (5' 3 )07/13/2024 12:52 PM EDTBody Mass Index29.23007/13/2024 12:52 PM EDT Plan of Treatment Health MaintenanceDue DateLast DoneCommentsAnxiety Syaaovmyi84/11/1971Depression Xbccrxsla45/11/1971Hepatitis C Ewptqyxwe90/11/1971DTaP,Tdap,Td Vaccine (1 - Tdap)07/27/1971CT Lbxlacpmkpqh27/11/1998Cologuard (FIT-DNA)1997Colonoscopy 1997Colorectal Cancer Ukhwleoue87/11/1998Diabetes Vqrgbbvfh22/11/1998Fecal Occult Blood1997Lipid Cuhtsequz26/11/6043Guceeqwrubwkq12/11/1998Shingrix Vaccine (1 of 2)2002Medicare Annual Wellness Visit07/16/2017Mammogram Wtnscztid20, 02/02/2022, 01/25/2021, Additional history exists Advance Directive Nvmikvttkw75/01/2025Covid-19 Vaccine ( season) , 02/14/2023, 12/22/2021, Additional history existsInfluenza Vaccine (#1), 12/31/2022, 12/18/2021, Additional history existsPneumococcal Vaccine: 50+Onbetzcct09/21/2019, 01/10/2017, 01/04/2016Bone Density FdcmynfnnJuzcumwud03/28/2021, 12/30/2018RSV CihbyirMvssdpnto95/16/2023 Medical Devices ImplantedTypeAreaManufacturerDevice IdentifierShelf Expiration DateModel / Serial / LotPinPinRight: Bone - ShoulderScrewScrewRight: Bone - Shoulder Insurance Care Teams Team MemberRelationshipSpecialtyStart DateEnd Andrea Wu DO [address] [place] [address] PCP - GeneralInternal Bmjluqrw20/11/24 Moustapha Haley MD [address] [place] [address] [address] [place] [address] Internal Zuhrmcbk27/11/24 Chrissy Hector MD [address] [place] [id number] Hematology/Eusokvdm66/11/24
--- OUTSIDE RECORDS SUMMARY | 2025-03-16 07:25 | XMS_ITS | Patient Health Record ---
Author Organization [facility] in [place] Address [address] [place] [address] Care Team Providers Care Housing Director Name Role Phone Andrea Wu DO Primary Care Provider Unavaila ble zzChawla, Chrissy Unavailable [phone] ALLEN, CHRISSY Unavailable [phone] Allergies Allergen (clinical drug ingredient) Drug/Non Drug Allergy documented on EMR Reaction Allergy Type Onset Date Status amoxicillin Amoxicillin rash Drug Allergy ActiveBee StinganaphylaxisAllergyActiveIodineanaphylaxisDrug AllergyActive Substance with sulfonamide structure and antibacterial mechanism of action (substance)Sulfa AntibioticsrashDrug AllergyActive Results Component Value Reference Range Notes VITAMIN D 25 [place] (Not yet rev iewed by provider) Interpretation: Performing Lab: Notes/Report: [facility] , Vitamin D 36.3 20-<30 ng/mL Vit D insufficient <20 ng/mL Vit D deficient 30-100 ng/mL Vit D sufficient >100 ng/mL Potential Toxicity Performing Lab:see noteML - [facility] LBIRON AND TIBC (Not yet reviewed by provider) Interpretation: Performing Lab: Notes/Report: [facility] ,Cord750.050.0-170.0 ug/dLTotal Iron Binding Rqfkbjcz781.0250.0-450.0 ug/dL Percent Iron Gsnoccvfyh55.1Performing Lab:see noteML - [facility] LB FERRITIN (Not yet reviewed by provider) Interpretation: Performing Lab: Notes/Report: [facility] ,Uvgztgvl608.08.0-252.0 ng/mLPerforming Lab:see noteML - [facility] LBCBC AUTO DIFF (Not yet reviewed by provider) Interpretation: Performing Lab: Notes/Report: [facility] ,White Blood Count6.74.0-11.0 10 3/uLRed Blood Count4.094.20-5.40 10 6/uL Uvggcyzlnv25.912.0-16.0 g/tZQgilrdzpbm51.036.0-48.0 %Mean Corpuscular Xeascg44.9 81.0-99.0 fLMean Corpuscular Zlzlhuhktd59.526.7-34.0 pgMean Corpuscular HGB Conc 33.929.9-35.2 g/dLRed Cell Distribution Width14.711.0-15.0 %Platelet Toiuz869 150-450 10 3/uLMean Platelet Volume9.39.5-13.5 fLNeutrophils Percent Auto53.0 43.0-75.0 %Lymphocytes Percent Auto33.120.5-60.0 %Monocytes Percent Auto8.91.7- 12.0 %Eosinophils Percent Auto4.30.9-7.0 %Basophils Percent Auto0.40.2-2.0 % Immature Granulocytes Pct Auto0.30.0-0.5 %Neutrophils Absolute Auto3.61.4-6.5 10 3/uLLymphocytes Absolute Auto2.21.2-3.8 10 3/uLMonocytes Absolute Auto0.60.3-0.8 10 3/uLEosinophils Absolute Auto0.30.0-0.7 10 3/uLBasophils Absolute Auto0.00.0- 0.1 10 3/uLImmature Granulocytes Abs Auto0.020.00-0.03 10 3/uLPerforming Lab:see noteML - [facility] LBVitamin B12 (Not yet reviewed by provider) Interpretation: Performing Lab: Notes/Report: [facility] ,Vitamin [id number] pg/mL Accounting Tutor: Bj Hair PhD, Phone: [phone] Performed at: - [address] [id number] Performing Lab:see note - [facility] LBVITAMIN D 25 [place] (Not yet reviewed by provider) Interpretation: Performing Lab: Notes/Report: [facility] ,Vitamin D36.4 20-<30 ng/mL Vit D insufficient >100 ng/mL Potential Toxicity <20 ng/mL Vit D deficient 30-100 ng/mL Vit D sufficient Performing Lab:see noteML - [facility] LBPROF 14(COMP METB) (Not yet reviewed by provider) Interpretation: Performing Lab: Notes/Report: [facility] ,Euhego828378-640 mmol/LPotassium4.13.5-5.1 mmol/KPlaqczmj23805-808 mmol/LCarbon Ifrfrso47.221.0-32.0 mmol/LAnion Gap11.0Lfmcjjd9775-083 mg/dLBlood Urea Nitrogen 15.07.0-18.0 mg/dLCreatinine0.850.55-1.02 mg/dLEstimated GFR ( Brittaney>60 >=60 mL/min/1.73m 2Estimated GFR (Non- Ashley>60>=60 mL/min/1.73m 2BUN Creatinine Ratio17.7Wqdmigq9.08.5-10.1 mg/dLBilirubin Total0.50.2-1.0 mg/dL Aspartate Amino Knzvwebnpns7133-87 U/LAlanine Wlujugknikfcdbkg5436-48 U/L Alkaline Rkiwwtkfehd5316-153 U/LTotal Protein7.06.4-8.2 g/dLAlbumin Level3.83.4- 5.0 g/dLGlobulin3.2Albumin Globulin Ratio1.2Performing Lab:see noteML - [facility] LBIRON AND TIBC (Not yet reviewed by provider) Interpretation: Performing Lab: Notes/Report: [facility] ,Iron51.050.0-170.0 ug/dLTotal Iron Binding Tdndjarq751.0250.0-450.0 ug/dL Percent Iron Qrqnssvjqq52.0Performing Lab:see noteML - [facility] LB FERRITIN (Not yet reviewed by provider) Interpretation: Performing Lab: Notes/Report: [facility] ,Nxggepew41.08.0-252.0 ng/mLPerforming Lab:see noteML - [facility] LB CBC AUTO DIFF (Not yet reviewed by provider) Interpretation: Performing Lab: Notes/Report: [facility] ,White Blood Count8.54.0-11.0 10 3/uLRed Blood Count4.354.20-5.40 10 6/uL Ejqzarruvn11.212.0-16.0 g/kRYtjdqtccox55.536.0-48.0 %Mean Corpuscular Ucaoht76.1 81.0-99.0 fLMean Corpuscular Gigqbdltoe97.326.7-34.0 pgMean Corpuscular HGB Conc 32.629.9-35.2 g/dLRed Cell Distribution Width13.511.0-15.0 %Platelet Hpryb790 150-450 10 3/uLMean Platelet Volume9.99.5-13.5 fLNeutrophils Percent Auto68.5 43.0-75.0 %Lymphocytes Percent Auto20.420.5-60.0 %Monocytes Percent Auto7.51.7- 12.0 %Eosinophils Percent Auto2.70.9-7.0 %Basophils Percent Auto0.40.2-2.0 % Immature Granulocytes Pct Auto0.50.0-0.5 %Neutrophils Absolute Auto5.81.4-6.5 10 3/uLLymphocytes Absolute Auto1.71.2-3.8 10 3/uLMonocytes Absolute Auto0.60.3-0.8 10 3/uLEosinophils Absolute Auto0.20.0-0.7 10 3/uLBasophils Absolute Auto0.00.0- 0.1 10 3/uLImmature Granulocytes Abs Auto0.040.00-0.03 10 3/uLPerforming Lab:see noteML - [facility] LBVitamin B12 (Not yet reviewed by provider) Interpretation: Performing Lab: Notes/Report: [facility] ,Vitamin [id number] pg/mL [address] [place], [place] [id number] Performed at: [facility] Accounting Tutor: Bj Hair PhD, Phone: [phone] Performing Lab:see noteLC - [facility] LBPROF CHEM 8 (BAS METB) (Not yet reviewed by provider) Interpretation: Performing Lab: Notes/Report: [facility] ,Rapxyn330190-049 mmol/LPotassium3.43.5-5.1 mmol/XZfwcmepa58614-271 mmol/LCarbon Sbfqbxf54.121.0-32.0 mmol/LAnion Gap15.2Yaaudej2839-482 mg/dLBlood Urea Nitrogen 16.07.0-18.0 mg/dLCreatinine0.950.55-1.02 mg/dLEstimated GFR ( Brittaney>60 >=60 mL/min/1.73m 2Estimated GFR (Non- Ame58>=60 mL/min/1.73m 2BUN Creatinine Ratio16.2Phltptl9.08.5-10.1 mg/dLPerforming Lab:see noteML - [facility] LB Reason For Referral No Information [...] nts Arexvy Unknown 12/31/2022 Administered Flu, Fluad (84243) 65 yrs+, single-dose syringe (8057-8410)Hkzihia3812/31/2022 AdministeredPneumococcal (Pneumovax 23)Wowkwij4401/05/2019AdministeredSpikevax Moderna Syringe Pre-Filled 50 mcg/0.5 fNAjjrkhr83/30/2023dministered Social History Tobacco Use: Social History Observation Description Date Details (start date - stop date) Never Smoker NA - NA Tobacco Use/Smoking Question Answer Notes Patient is a nonsmoker Section Notes: Never Smoked Never Smoked Never Smoked Never Smoked Never Smoked Never Smoked Never Smoked Problems Problem Type SNOMED Code ICD Code Onset Dates Problem Status W/U Status Risk Notes Problem Essential hypertension (03631856 ) Essential (primary) hypertension (I10) ActiveconfirmedProblemAge-related osteoporosis (358745362)Age-related osteoporosis without current pathological fracture (M81.0)ActiveconfirmedProblem Primary insomnia (5474385)Primary insomnia (F51.01)ActiveconfirmedProblemChronic tension-type headache (330051353)Chronic tension-type headache, not intractable (G44.229)ActiveconfirmedProblemUncomplicated mild persistent asthma (748809402) Mild persistent asthma, uncomplicated (J45.30)ActiveconfirmedProblemSeborrheic dermatitis (95869240)Seborrheic dermatitis, unspecified (L21.9)Activeconfirmed ProblemInstability of joint of right ankle (7327551391412320)Other instability, right ankle (M25.371)ActiveconfirmedProblemCervical spondylosis without myelopathy (793400586)Spondylosis without myelopathy or radiculopathy, cervical region (M47.812)ActiveconfirmedProblemLumbosacral spondylosis without myelopathy (24458112)Spondylosis without myelopathy or radiculopathy, lumbar region (M47.816)ActiveconfirmedProblemPrepatellar bursitis of left knee (962351209423508)Prepatellar bursitis, left knee (M70.42)ActiveconfirmedProblem Peroneal tendinitis (83556472)Peroneal tendinitis, right leg (M76.71)Active confirmedProblemStridor (90718165)Stridor (R06.1)ActiveconfirmedProblemContusion of left knee (69306410438692329)Contusion of left knee, initial encounter (S80.02XA)ActiveconfirmedProblemMetatarsal bone fracture (320177416)Displaced fracture of fifth metatarsal bone, right foot, subsequent encounter for fracture with routine healing (S92.351D)ActiveconfirmedProblemSprain of other ligament of right ankle, sequela (S93.491S)ActiveconfirmedProblemPresence of functional implant, unspecified (Z96.9)ActiveconfirmedProblemGastroesophageal reflux disease (775051698)GERD (gastroesophageal reflux disease) (K21.9)Activeconfirmed ProblemLung field abnormal (761762940)Abnormal CT scan of lung (R91.8)Active confirmedProblemPain in limb (48787391)Foot pain, right (M79.671)Activeconfirmed ProblemOverweight (528838823)Overweight (BMI 25.0-29.9) (E66.3)Activeconfirmed ProblemIncreased immunoglobulin (536050070)Elevated IgE level (R76.8)Active 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 lung disease (J84.10)ActiveconfirmedProblemChoking (892783882)Choking (T17.308A) ActiveconfirmedProblemStrain of left shoulder, initial encounter (S46.912A) ActiveconfirmedProblemChronic maxillary sinusitis (01905524)Chronic sinusitis of both maxillary sinuses (J32.0)ActiveconfirmedProblemAllergic rhinitis caused by pollen (65715070)Seasonal allergic rhinitis due to pollen (J30.1)Activeconfirmed ProblemAbnormal diffusion capacity determined by pulmonary function test (R94.2) ActiveconfirmedProblemPure hypercholesterolemia (905678040)Hyperlipidemia type II (E78.01)ActiveconfirmedProblemStrain of rhomboid muscle, initial encounter (S29.012A)ActiveconfirmedProblemOsteopenia of left hip (M85.852)Activeconfirmed ProblemAutoimmune hypothyroidism (261814023)Autoimmune hypothyroidism (E06.3) ActiveconfirmedProblemAt low risk for fall (540854597)At low risk for fall (Z91.81)ActiveconfirmedProblemAllergic reaction to bee sting (407901815)Bee sting allergy (Z91.030)ActiveconfirmedProblemDepression screening (767505302) Depression screen (Z13.31)ActiveconfirmedProblemGastroesophageal reflux disease with esophagitis (disorder) (697556610)Gastro-esophageal reflux disease with esophagitis, without bleeding (K21.00)ActiveconfirmedProblemHistory of gastric ulcer (866617383)History of gastric ulcer (Z87.11)ActiveconfirmedProblem 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)ActiveconfirmedProblemClosed fracture of metatarsal bone (96796574)Closed fracture of base of fifth metatarsal bone at metaphyseal-diaphyseal junction, unspecified laterality, initial encounter (S99.199A)ActiveconfirmedProblemMuscle strain of right knee, initial encounter (S86.911A)Activeconfirmed Encounters Encounter Location Date Provider Diagnosis [facility] [address] [place] [address] 05/05/2024 Chrissy Orozco [facility] [address] [place] [address]/08/[address] [facility] [address] [place] [address]LUCILLE VILLA Plan Of Treatment Pending Test Test Name [...] End Date [place] [address] [place] [address] [id number] Haja Chester - patient is the [id number] [address] [place], [place] [id number], RosemarySelf - patient is the [id number] 2017 Medical (General) History Medical History History [...]
--- OUTSIDE RECORDS SUMMARY | 2025-03-16 07:25 | XMS_ITS | CCD ---
Author Organization [facility] CliniSyvt Care Team Providers Care Regional Sales Consultant Name Role Phone Espinoza Ruiz Unavailable ANDREA GOLDEN Primary Care Physician [phone] Andrea Golden Unavailable Luma Chirinos Unavailable PABLO, [...] Unavailable TERESA CROWELL Consulting Unavailable WebsterShannan Unavailable Andrea Golden MD Primary Care Provider JHONNY MAHER Attending Unavailable DARLINE PEREIRA Attending Unavailable JHONNY MAHER Referring Unavailable Unavailable Primary Care Provider UnavailLUMA Latif Attending Unavailable ISH PEREIRAA W Referring Unavailable Tera VILLEGAS, Jones Talthang Unavailable [phone] Krunal VILLEGAS, Chrissy Unavailable Andrea Golden DO [...] Attending Provider Andrea Golden DO Attending Provider [phone] MADISON BURNS Attending Unavailable CHARITO VASQUEZ Attending Unavailable RAMCHARITO CHACON Attending Unavailable MARSHA LAL Attending Unavailable CHARITO VASQUEZ Attending Unavailable Andrea Golden DO Primary Care Provider Andrea Golden DO Attending Provider [phone] Chrissy Hector MD Attending Provider Espinoza Ruiz MD Attending Provider [phone] Espinoza Ruiz Attending Unavailable Espinoza Ruiz Admitting Unavailable Andrea Golden Primary Care Unavailable Allergies Allergy ClassificationReported Allergen(s)Allergy TypeDate of OnsetReaction(s) Facility (20 sources)Amoxicillin; Translations: [AMOXICILLIN]Drug Kzdbqok82-17-9415Nsqy, Unknown, Other: See [facility] (20 sources)Sulfacetamide / SulfurDrug AllergyUnknoOzarks Medical Center Interface21 Other (20 sources)idp dyePropensity to adverse uuwfhrvmq70-55-3073Dwoflfm, Unknown ReactionOur [facility] Of Mercy Hospital (20 sources)Sulfonamides (Antibiotic); Translations: [SULFA (SULFONAMIDE ANTIBIOTICS)]Allergy to clhunjrpi79-02-6701Tjlg, UnknownOur Lady Of Mercy Hospital (20 sources)wasp venom; Translations: [WASP VENOM]Allergy to ffufujvyk72-00-2683 AnaphylaxisOur Lady Of Mercy Hospital (12 sources)bee venom protein (honey bee); Translations: [BEE VENOM PROTEIN (HONEY BEE)]Allergy to rrmzdjjax19-16-1809HlmfdgkrukxVmzjqjmks [facility] (20 sources)Iodinated Contrast Media; Translations: [IODINATED CONTRAST MEDIA] Allergy to nqywjzpwi56-89-8360Uvjak, Shortness of breath, Unknown, Anaphylaxis, HivesOur Lady Of Mercy Hospital (20 sources)Bee/Wasp/Ant venom; Translations: [Bee Stings]Drug allergyDyspnea (finding), Weal (disorder)[facility] (20 sources)Contrast media; Translations: [contrast media (iodine-based)]Drug vyfnylp46-87-4080Yollxcw (finding), Weal (disorder)[facility] (20 sources)Iodine; Translations: [iodine]Drug Cgeatnj23-08-7136Sdivspt (qualifier value), Unknown, AnaphylaxisGeneral Surgery [place] (20 sources)Penicillin; Translations: [penicillin]Drug Vubsjuj96-48-1753Ntjgzeja of skin (disorder), RashGeneral Surgery [place] (20 sources)Sulfonamides (Antibiotic); Translations: [sulfa drugs]Drug allergy Angioedema (disorder)[facility] (1 source)bee venomDrug allergy (disorder)[facility] (1 source)Iodine (And Iodine Containting Drugs)Drug allergy (disorder)01-18-2015 [facility] (8 sources)PenicillinsDrug allergy (disorder)97-91-8810Gibtegi ReactionThe [facility] (1 source)Sulfonamides (Antibiotic)Drug allergy (disorder)80-47-2907[facility] (2 sources)Iodine / Sodium IodideDrug AllergyUnknowHedrick Medical Center Interface21 Other (18 sources)Substance with penicillin structure and antibacterial mechanism of action (substance)Drug allergyUnkwest hills hospitalSynergy Hub Other (20 sources)Substance with sulfonamide structure and antibacterial mechanism of action (substance)Drug ogcyoxv75-73-3238BikznyjYvryaSynergy Hub Other (2 sources)Allergies ReconciledPropensity to adverse reactionsLakeland Regional Hospital Interface21 Other (2 sources)patient allergy list reviewed by nurse or physiciaPropensity to adverse vsrnzydhk10-82-2511Uiwdtau:[facility] Interface21 Other (16 sources)Penicillin GDrug Vtrtjau94-65-3809ZjpwSFUD Healthcare (7 sources)SulfacetamideDrug Jnauaff11-38-8343Rwsayay ReactionOur Lady Of Mercy Hospital (7 sources)SulfurDrug Ggxqokp18-39-4214OgvtcxxBluffton Hospital (4 sources)SULFACETAMIDE PXP-VNFGCI-KAPS; Translations: [SULFACETAMIDE JTY-EWTERT-OSJB]Propensity to adverse reactions to drug (disorder)09-14-2023 [facility] 3 Repository (1 source)Contrast media; Translations: [CONTRAST DYE]Propensity to adverse reactions to drug (disorder)82-83-6502CgtnmddnaH[facility] Medications Current Medications MedicationDrug Class(es)DatesSig (Normalized)Sig (Original)0.4 ML cyclosporine 0.5 MG/ML Ophthalmic Suspension [Restasis] (1 source)Start: 12-37-0698yknc 1 drop(s) into the eye(s) twice dailyRestasis 0.05% ophthalmic emulsion 1 drop(s), Eye-Both, BID, Refill(s) 0 Start Date: 09/04/19 Status: Pnokueh68 ACTUAT fluticasone furoate 0.2 MG/ACTUAT / umeclidinium 0.0625 MG/ACTUAT / vilanterol 0.025 MG/ACTUAT Dry Powder Inhaler [Trelegy] (1 source)Start: 37-91-2537flva 1 puff(s) by inhalation once dailyTrelegy Ellipta 200-62.5-25 MCG/ACT 1 puff Inhalation Once a day for 30 days Feb, Activeacetaminophen 325 mg oral tablet (7 sources)take 2 tablets by mouth every six hours as neededacetaminophen (TYLENOL) 325 mg tablet Take 650 mg by mouth every 6 hours as needed. Active max182109 200 actuat albuterol 0.09 mg/actuat metered dose inhaler (20 sources)beta2-Adrenergic AgonistStart: 90-30-9278Svlvxwzfw Sulfate 90 mcg/actuation HFA aerosol inhaler Active 0 .ROUTE .COMPLEX 25.5 11 June 01, 2024 7:50am USE 2 INHALATIONS ORALLY EVERY 4 HOURS NEEDED FOR COUGH OR SHORTNESS OF BREATH Complies with drug therapyStart: 58-40-5032itux 2 puff(s) by inhalation every four hoursProAir HFA 90 mcg/inh inhalation aerosol 2 puff(s), Inhalation, q4hr Shortness of breath or wheezing, Refill(s) 0 Start Date: 09/02/19 Status: OrderedStart: 10-21-2018 End: 62-05-4333Tczktqsqy Sulfate 90 mcg/actuation HFA aerosol inhaler Discontinued [...] acid 70 mg oral tablet (20 sources)BisphosphonateStart: 66-37-0430loho 1 tablet by mouth every week Alendronate 70 mg tablet Active 70 MG PO every week 12 90 3 December 09, 2024 6:19am Complies with drug therapyStart: 01-09-2024 End: 39-16-8156Vssjpksukjz 70 mg tablet Discontinued 0 .ROUTE .COMPLEX 12 3 January 09, 2024 11:33am December 09, 2024 6:20am TAKE 1 TABLET ONCE WEEKLY 30 MINUTES BEFORE THE FIRST FOOD, BEVERAGE OR MEDICINE OFTHE DAY WITH PLAIN WATERStart: 10-21-2018 End: 47-62-4180sgdh 1 tablet by mouth every weekAlendronate 70 [...] oral tablet (20 sources)Dihydropyridine Calcium Channel BlockerStart: 63-51-1630Aszksbjxny 5 mg tablet Active 0 .ROUTE .COMPLEX 90 April 27, 2024 9:06am TAKE 1 TABLET DAILYComplies with drug therapyStart: 02-20-2023 End: 16-65-2126ylna 1 tablet by mouth once dailyAmlodipine 5 [...] Muscle Relaxant, Central Nervous System Stimulant, MethylxanthineStart: 14-00-8455ndkh 0.5 tablet by mouth four times daily as needed for headache Drregbbuibju-Ovi-Zxpzsvvc 50-770-60 mg Tablet Active 0.5 TAB PO Four times daily as needed for Headache October 20, 2018 11:00pm Complies with drug therapy Astepro 205.5 MCG/SPRAY (1 source)Start: 26-21-8972fron 2 spray(s) nasal route twice dailyAstepro 205.5 MCG/SPRAY 2 sprays in each nostril Nasally bid for 30 days Feb, Active atorvastatin 10 mg oral tablet (20 sources)HMG-CoA Reductase InhibitorStart: 29-55-8845xmmi 1 tablet by mouth once daily in the eveningAtorvastatin 10 mg tablet Active 10 MG PO Every evening 90 90 January 25, 2025 7:00am Complieswith drug therapyStart: 01-27-2024 End: 93-13-7255Ahvmlmkszyme 10 mg tablet Discontinued 0 .ROUTE .COMPLEX 90 3 January 27, 2024 1:00pm January 25, 2025 7:00am TAKE 1 TABLET EVERY EVENINGStart: 10-21-2018 End: 23-05-6928xaxg 1 tablet by mouth once dailyAtorvastatin 10 mg tablet Discontinued 10 MG PO Daily October 20, 2018 11:00pm January 27, 2024 1:00pm hyperlipidemiaazelastine hydrochloride 0.137 mg/actuat metered dose nasal spray (20 sources)Histamine-1 Receptor AntagonistStart: 05-16-2023 End: 81-17-6466ftod 2 spray(s) nasal route in the morningazelastine (Astelin) 0.1 % nasal spray Indications: Chronic rhinitis Administer 2 sprays into each n ostril in the morning and 2 sprays before bedtime. Use in each nostril as directed. 90 mL 3 05/16/2023 ActiveStart: 64-45-7797qtfj 2 spray(s) nasal route twice dailyAstepro 205.5 MCG/SPRAY 2 sprays in each nostril Nasally bid Feb, Activebetamethasone 0.001 mg/mg topical ointment (20 sources)CorticosteroidStart: 01-31-2024 End: 00-38-4463dvoeyqxpbuslv valerate (Valisone) 0.1 % ointment Indications: Lichen sclerosus et atrophicus APPLY TO THE AFFECTED AREA EXTERNALLY TWO TIMES A DAY, REPLACES PREVIOUS SENT SCRIPT 60 g 11 01/31/2024 04/16/2024 Discontinued (Ineffective)Start: 09-17-2023 End: 94-24-4615cqfrdkyfrllsi valerate (Valisone) 0.1 % cream Indications: Lichen sclerosus et atrophicus APPLY TO THE AFFECTED AREA TWICE A DAY 60 g 2 12/31/2023 04/16/2024 Discontinued (Ineffective)Start: 13-07-0962ruzxmsavrfacb valerate (Valisone) 0.1 % ointment 09/09/2023 ActiveStart: 03-13-2023 betamethasone valerate (Valisone) 0.1 % cream Indications: Lichen sclerosus et atrophicus Apply to affected area twice daily, Replace previous sent script 60 g 3 03/13/2023 ActiveStart: 10-21-2018 End: 65-63-8322Cqzhoeijucasw Valerate 0.1 % Cream Discontinued 1 APPLIC TOPICAL As Directed October 20, 2018 11:00pm January 19, 2025 12:19pmStart: 10-21-2018 Betamethasone Valerate Active 1 APPLIC TOPICAL As Directed October 21, 2018 12:00amBetamethasone Not-Taking/PRNBetamethasone Not-TakingBetamethasone Active Breo Ellipta 200 mcg-25 mcg/inh inhalation powder (9 sources)Start: 29-64-6979Obmn Ellipta 200 mcg-25 mcg/inh inhalation powder 1 inh, Inhalation, Daily, Refill(s) 0 Start Date:02/05/24 Status: Ordered Repeat number: 1Start: 19-32-3854Tbgh Ellipta 200 mcg-25 mcg/inh inhalation powder 1 inh, Inhalation, Daily, Refill(s) 0 Start Date:02/05/24 Status: OrderedStart: 02-91-3318Famv Ellipta 200 mcg-25 mcg/inh inhalation powder 1 inh, Refill(s) 0 Start Date: 02/05/24 Status: OrderedStart: 25-96-1972esjt 1 puff(s) by inhalation once dailyBreo Ellipta 200 mcg-25 mcg/inh inhalation powder 1 puff(s), Inhalation, Daily, Refill(s) 0 Start Date: 09/02/19 Status: Ordered budesonide 0.25 mg/ml inhalation suspension (14 sources)CorticosteroidStart: 08-20-2023 End: 05-70-3574lpqo 2 mL by mouth in the morningbudesonide (Pulmicort) 0.5 MG/2ML nebulizer solution Indications: Chronic maxillary sinusitis Take 2 mL (0.5 mg) by nebulization in the morning. Rinse mouth with water after use to reduce aftertaste and incidence of candidiasis. Do not swallow.. 60 mL 11 08/20/2023 Activecalcium carbonate 600 mg chewable tablet (17 sources)Start: 17-11-5119cacx 1 tablet by mouth three times dailycalcium carbonate 600 mg oral tablet, chewable 600 mg = 1 tab(s), Chewed, TID, Refills(s) 0 Start Date: 09/04/19 Status: OrderedStart: 10-21-2018 End: 31-58-3277Enyjvtf Carbonate (Tums) 300 mg (750 mg) Tablet,Chewable Discontinued 2 TAB PO As Directed as needed for GERD October 20, 2018 11:00pm February 05, 2024 8:43amStart: 10-21-2018 End: 82-46-9120jxgb 1 tablet by mouth three times dailyCalcium Carbonate (Calcium 500) 500 mg calcium (1,250 mg) Tablet,Chewable Discontinued 500 MG PO Three times daily October 20, 2018 11:00pm February 05, 2024 8:43am osteoporosisCalcium Carbonate / vitamin D3 (7 sources)calcium carbonate/vitamin D3 (CALCIUM + D ORAL) Take by mouth. Active Calcium with Vitamin D and Minerals oral tablet (6 sources)Start: 80-36-5572pdew 1 tablet by mouth twice dailyCalcium with Vitamin D and Minerals oral tablet tab(s), Oral, BID, Refill(s) 0 Start Date: 02/05/24Status: Orderedcelecoxib 200 mg oral capsule (3 sources)Nonsteroidal Anti-inflammatory DrugStart: 05-36-9830eepk 1 capsule by mouth once dailyCelecoxib (Celebrex) 200 mg capsule Active 200 MG PO Daily 30 30 0 December 21, 2024 11:00pm Complies with drug therapycephalexin 500 mg oral capsule (1 source)Cephalosporin AntibacterialStart: 02-05-2024 End: 37-17-5639hzsa 1 capsule by mouth every twelve hoursKeflex 500 mg Cap 500 mg = 1 cap(s), Oral, q12hr, Start the morning of procedure, X 1 day(s), # 2 ca p(s), Refills(s) 0, Pharmacy: [facility], 158, cm, 02/05/24 11:08:00 EST, Height/Length Dosing, 62, kg, 02/05/24 11:08:00 EST, Weight Dosing Start Date: 02/05/24 Stop Date: 02/06/24 Status: Orderedcetirizine hydrochloride 10 mg oral tablet (20 sources)Histamine-1 Receptor AntagonistStart: 10-18-2023 End: 86-69-1411uios 1 tablet by mouth once daily as neededCetirizine 10 mg tablet Active 10 MG PO Daily as needed February 05, 2024 12:00am Complies with drug therapyStart: 50-47-1095Rfubbt Oral, Daily, Refills(s) 0, Allergy symptoms Start Date: 08/15/23 Status: Ordered Repeat number: 1Start: 04-62-0667Dtystt Oral, Daily, Refills(s) 0, Allergy symptoms Start Date: 08/15/23 Status: Ordered Start: 80-13-4778Oybdmp Daily, Refills(s) 0 Start Date: 08/15/23 Status: Ordered Cetirizine 10 mg cap Take by mouth. Activetake 1 tablet by mouth once daily cetirizine (ZyrTEC) 10 mg tablet take 1 tablet by mouth once daily if needed for allergies Activecholecalciferol 0.05 mg oral capsule (17 sources)Vitamin DStart: 53-17-7801hjhu 1 capsule by mouth in the morningRA Vitamin D-3 50 MCG (1999) capsule Take 50 mcg by mouth in the morning. 05/18/2022 Activecholecalciferol, vitamin D3, (D3-1999 ORAL) (7 sources)cholecalciferol, vitamin D3, (D3-1999 ORAL) Take by mouth. Active cholestyramine resin 4000 mg powder for oral suspension (1 source)Bile Acid SequestrantStart: 57-72-2336Onnmguad 4 g/9 g oral powder = 1 packet(s), Oral, Daily, # 30 EA, Refills(s) 3, Pharmacy: [facility], 158, cm, 08/05/24 14:23:00 EDT, Height/Length [...] oral tablet (1 source)Quinolone AntimicrobialStart: 04-07-2024 End: 21-41-1718Colhd 500 mg Tab 500 mg = 1 tab(s), Oral, q12hr, Start morning of white removal in 1-2 days, X 1 day(s), # 2 tab(s), Refills(s) 0, Pharmacy: [facility], 158, cm, 03/24/24 11:38:00 EST, Height/Length Dosing, 75.5, kg, 03/24/24 11:38:00 EST, Weight Dosing Start Date: 04/07/24 Stop Date: 04/08/24 Status: Orderedclobetasol propionate 0.0005 mg/mg topical ointment (2 sources)CorticosteroidStart: 04-16-2024 End: 50-97-2362mlujtugvxi (Temovate) 0.05 % ointment Indications: Lichen sclerosus et atrophicus Apply topically 2(two) times a day for 7 days 30 g 2 04/16/2024 04/23/2024 Activecodeine phosphate/guaifenesin (CODEINE-GUAIFENESIN ORAL) (7 sources)codeine phosphate/guaifenesin (CODEINE-GUAIFENESIN ORAL) Take by mouth. Activeenteric contrast (will be provided with radiology test) (1 source)Start: 10-31-2023 End: 84-29-4607vfepaas contrast (will be provided with radiology test) For CT ENTEROGRAPHY W IVCON order Administer, As Directed One Time Only, via Oral, Rectal, both Oral and Rectal, Enteric Tube, Stoma or Indwelling Catheter, Enteric Contrast as designated per enteric contrast guidelines. 1 Each 0 10/31/2023 11/01/2023 Uunxpnzsx790476 0.3 ml EPINEPHrine 1 mg/ml auto-injector (20 sources)alpha-Adrenergic Agonist, beta-Adrenergic Agonist, Catecholamine Start: 30-46-0398Qufjeirbfby 0.3 mg/0.3 mL auto-injector Active 0.3 MG IM every 5 to 15 minutes as needed February 05, 2024 12:00am do not exceed 3 doses per episode Complies with drug therapyStart: 22-81-8843zgtxzm 0.3 mg by intramuscular injection once as neededEpiPen 2-Giovani 0.3 mg, IntraMuscular, Once, PRN Anaphylaxis, Refills(s) 0 Start Date: 09/04/19 Status:Ordered Repeat number: 1Start: 79-00-5688nnfgat 0.3 mg by intramuscular injection once as neededEpiPen 2-Giovani 0.3 mg, IntraMuscular, Once, PRN Anaphylaxis, Refills(s) 0 Start Date: 09/04/19 Status:OrderedStart: 38-14-2217vnpbub 0.3 mg by intramuscular injection onceEpiPen 2-Giovani 0.3 mg, IntraMuscular, Once, Refills(s) 0 Start Date: 09/04/19 Status: OrderedEpiPen 2-Giovani 0.3 MG/0.3ML injection syringe as directed Injection ActiveEPINEPHrine (EPIPEN) 0.3 mg/0.3 mL auto-injector Inject 0.3 mg intramuscularly as needed. ActiveEPINEPHrine 0.3 MG/0.3ML Injection Active famotidine 20 mg oral tablet (20 sources)Histamine-2 Receptor AntagonistStart: 02-05-2024 End: 84-25-9917albi 1 tablet by mouth once daily at bedtimeFamotidine 20 mg tablet Active 20 MG PO Daily at bedtime 90 90 3 January 19, 2025 12:38pm Complies with drug therapyStart: 01-27-2024 End: 23-78-7759Xwecafdjff 20 mg tablet Discontinued 0 .ROUTE .COMPLEX 90 3 January 27, 2024 12:59pm February 05, 2024 9:02am TAKE 1 TABLET AT BEDTIME Start: 85-49-5641hfskscpzhf (Pepcid) 20 MG tablet Take by mouth 02/20/2023 ActiveStart: 12-23-2022 End: 17-59-4658imnd 1 tablet by mouth once dailyFamotidine 20 mg tablet Discontinued 20 MG PO Daily January 27, 2024 12:00am January 27, 2024 1:00pmfluocinonide 0.5 mg/ml topical solution (11 sources)CorticosteroidStart: 18-07-1149zkqyrdrkytes (Lidex) 0.05 % external solution Indications: Pruritus Apply to affected areas on the scalp, up to twice a day when flared, 30 day supply 60 mL 11 03/07/2023 Activefluticasone propionate 0.05 mg/actuat metered dose nasal spray (20 sources)CorticosteroidStart: 97-24-0683Dmuxbo 93 mcg/inh nasal spray mcg, spray(s), BID, Refill(s) 0 Start Date: 02/05/24 Status: Ordered Repeat number: 1 Start: 93-00-7085vsye 1 spray(s) nasal route twice dailyFluticasone Propionate (Xhance) 93 mcg/actuation aerosol breath activated Active 1 SPRAY INTRANASAL Twice daily February 05, 2024 12:00am into each nostril Complies with drug therapyStart: 09-23-2023 End: 30-75-1941ibmx 1 spray(s) nasal route in the morningFluticasone Propionate (Xhance) 93 MCG/ACT Exhaler Suspension Indications: Chronic pansinusitis Admi nister 1 spray into affected nostril(s) in the morning and 1 spray before bedtime. 48 mL 3 12/30/2023 ActiveStart: 07-02-2023 End: 17-63-4112lgtz 2 spray(s) nasal route once dailyfluticasone (Flonase) 50 MCG/ACT nasal spray Indications: Chronic pansinusitis Administer 2 sprays into each nostril Daily Shake gently. Before first use, prime pump. After use, clean tip and replacecap. 16 g 11 07/02/2023 ActiveStart: 09-86-9670rglbloniuuj 0.05 mg/inh Nasal [place] 2 spray(s), Nasal, Daily, Refill(s) 0 Start Date: 09/02/19 Status: OrderedStart: 10-21-2018 End: 49-18-8434Iebbmqkegsb Propionate 50 mcg/actuation spray,suspension Discontinued 2 SPRAY [...] nostril) Nasally Once a day ActiveFluticasone Propionate Gcmgxu39 actuat fluticasone furoate 0.1 mg/actuat / umeclidinium 0.0625 mg/actuat / vilanterol 0.025 mg/actuat dry powder inhaler (5 sources)Anticholinergic, Corticosteroid, beta2-Adrenergic AgonistStart: 65-58-6576ljot 1 puff(s) by inhalation once dailyTrelegy Ellipta 100-62.5-25 MCG/ACT 1 puff Inhalation Once a day for 90 days Feb, ActiveFluticasone Furoate-Vilanterol (20 sources)Corticosteroid, beta2-Adrenergic AgonistStart: 09-29-0505Fpvjrkyglax Furoate-Vilanterol (Breo Ellipta) 200-25 mcg/dose blister with device Active 1 INH INHALATION Daily April 20, 2024 9:23am Complies with drug therapyStart: 75-67-4570Sdjestpakqn Furoate-Vilanterol (Breo Ellipta) 200-25 mcg/dose blister with device Active 1 INH INHALATION Daily April 20, 2024 10:23am Complies with drug therapyStart: 02-05-2024 End: 51-43-6715Fsycevjcmmm Furoate-Vilanterol (Breo Ellipta) 200-25 mcg/dose blister with device Discontinued 1 INH INHALATION Daily February 05, 2024 12:00am April 20, 2024 9:24amStart: 02-05-2024 End: 56-46-2355Vbnipemwhsz Furoate-Vilanterol (Breo Ellipta) 200-25 mcg/dose blister with device Discontinued 1 INH INHALATION Daily February 05, 2024 1:00am April 20, 2024 10:24amStart: 83-12-9843Uyyickobmed Furoate-Vilanterol (Breo Ellipta) 200-25 mcg/dose blister with device Active 1 INH INHALATION Daily February 05, 2024 12:00amStart: 29-54-2675Cmrh Ellipta 200-25 mcg/dose inhaler 01/25/2023 ActiveStart: 10-21-2018 End: 11-58-4771gson 1 puff(s) by inhalation once dailyFluticasone Furoate- Vilanterol (Breo Ellipta) 200-25 mcg/dose blister with device Discontinued 1 PUF F INHALATION Daily October 20, 2018 11:00pm February 05, 2024 8:44am Asthma Start: 10-21-2018 End: 63-99-8156jawv 1 puff(s) by inhalation once dailyFluticasone Furoate- Vilanterol (Breo Ellipta) 200-25 mcg/dose blister with device Discontinued 1 PUF F INHALATION Daily October 21, 2018 12:00am February 05, 2024 9:44amStart: 10-21-2018 End: 48-55-0127scbq 1 puff(s) by inhalation once dailyFluticasone Furoate- Vilanterol (Breo Ellipta) 200-25 mcg/dose blister with device Discontinued 1 PUF F INHALATION Daily October 20, 2018 11:00pm February 05, 2024 8:44amStart: 22-55-3918ycdg 1 puff(s) by inhalation once dailyFluticasone Furoate-Vilanterol [...] puff Inhalation daily Activefluticasone 0.05 mg/inh Nasal [place] (19 sources)Start: 00-42-0373hkapkclimvn 0.05 mg/inh Nasal [place] 2 spray(s), Nasal, Daily, Refill(s) 0 Start Date: 09/02/19 Status: Ordered Repeat number: 1 Start: 35-73-4103vhniuudinll 0.05 mg/inh Nasal [place] 2 spray(s), Nasal, Daily, Refill(s) 0 Start Date: 09/02/19 Status: OrderedHair, Skin & Nails 5 mg oral capsule (8 sources)Start: 78-20-0090evuf 1 mg by mouth once dailyHair, Skin & Nails 5 mg oral capsule mg, cap(s), Oral, Daily, Refill(s) 0 Start Date: 02/05/24 Status: Ordered Repeat number: 1Start: 32-74-7148uvfv 1 mg by mouth once dailyHair, Skin [...] with radiology test) (1 source)Start: 10-31-2023 End: 18-41-4295fa contrast (will be provided with radiology test) [...] 750 mg oral tablet (5 sources)Quinolone AntimicrobialStart: 26-49-6209btqv 1 tablet by mouth every twenty-four hourslevoFLOXacin 750 MG 1 tablet Orally Once a day for 5 days Mar, Activelevothyroxine sodium 0.1 mg oral tablet (20 sources)l-ThyroxineStart: 80-42-1194vvay 1 tablet by mouth once daily Levothyroxine 100 mcg tablet Active 100 MCG PO Daily 90 90 3 January 19, 2025 12:38pm Take on an empty stomach Complies with drug therapyStart: 94-50-5118qwpd 1 tablet by mouth once dailylevothyroxine 100 mcg (0.1 mg) Tab 100 mcg = 1 tab(s), Oral, Daily, Refills(s) 0, Thyroid Start Date: 03/24/24 Status: Ordered Repeat number: 1Start: 01-27-2024 End: 55-61-6764Kiqcdfewbdbwg 100 mcg tablet Discontinued 0 .ROUTE .COMPLEX 90 3 January 27, 2024 12:59pm January 19, 2025 12:39pm TAKE 1 TABLET DAILY ON AN EMPTY STOMACH (REPLACING 88MCG)Start: 08-82-8557uyai 1 tablet by mouth once dailylevothyroxine 88 mcg (0.088 mg) Tab 88 microgram = 1 tab(s), Oral, Daily, Refills(s) 0, Thyroid Start Date: 09/04/19 Status: OrderedStart: 12-08-2007 End: 29-47-6390deie 1 tablet by mouth once dailyLevothyroxine 100 [...] Oncea day for 90 days ActiveLevothyroxine Sodium Tftkqh76 hr loratadine 5 mg / pseudoephedrine sulfate 120 mg extended release oral tablet (20 sources)alpha-Adrenergic AgonistStart: 57-02-5040rhcd 5-120 mg by mouth twice daily as neededClaritin-D 12 Hour 5-120 MG 1 tablet Orally two times daily, as needed Apr, ActiveStart: 92-86-9355msyw 1 tablet by mouth once dailyClaritin-D 5 mg-120 mg Tab-ER 1 tab(s), Oral, Daily, Refill(s) 0 Start Date: 09/04/19 Status: OrderedStart: 10-21-2018 End: 79-91-6341dlwv 1 tablet by mouth once daily, then take 1 tablet by mouth every twenty-four hoursLoratadine-Pseudoephedrine (Claritin-D 24 Hour) 10-240 mg Tablet Extended Release 24 Hr Discontinued 1 TAB PO Daily October 20, 2018 11:00pm February 05, 2024 8:44am Sinus symptoms End: 10-38-5749ednv 1 tablet by mouth once in the morning, then take 1 tablet by mouth every twelve hours at bedtimeloratadine-pseudoephedrine ER (Claritin-D 12-hour) 5-120 MG 12 hr tablet Take 1 tablet by mouth in the morning and 1 tablet before bedtime. Do not crush, chew, or split.. 04/30/2024 Discontinued LORazepam 0.5 mg oral tablet (15 sources)BenzodiazepineStart: 46-10-5167ZHIgceewu 0.5 MG 1/2 - 1 Orally Once a day as needed for anxiety for 30 days Jan, Activemetoclopramide 10 mg oral tablet (16 sources)Dopamine-2 Receptor AntagonistStart: 33-37-4098etug 1 tablet by mouth onceReglan 10 mg [...] topical gel (20 sources)Nitroimidazole AntimicrobialStart: 09-15-2024 End: 68-33-5167jtkjhBAAZQKHX (Metrogel) 1 % gel Indications: Lichen sclerosus et atrophicus Apply 1 application topically Daily Apply 1 application topically Daily 60 g 1 09/15/2024 12/14/2024 ActiveStart: 54-90-1482Pvdqourpphwwu 0.75 % (37.5mg/5 gram) gel Active 1 APPLICATOR VAGINAL Twice daily February 05, 2024 12:00am Complies with drug therapymetroNIDAZOLE (METROGEL) 0.75 % Vaginal Gel Use 1 Applicatorful vaginally daily at bedtime. ActivemetroNIDAZOLE 0.75 % 1 application to affected area Externally Twice a day Not-Taking/PRN24 hr mirabegron 50 mg extended release oral tablet (1 source)beta3-Adrenergic AgonistStart: 48-37-3968jxpa 1 tablet by mouth once dailyMyrbetriq 50 mg oral tablet, extended release 50 mg = 1 tab(s), Oral, Daily, # 30 tab(s), Refills(s) 6, [facility]: [id number], 158, cm, 12/01/21 9:55:00 EDT, Height/Length Dosing, 68, kg, 12/01/21 9:55:00 EDT, Weight Dosing Start Date: 12/01/21 Status: Orderedmontelukast 10 mg oral tablet (20 sources)Leukotriene Receptor AntagonistStart: 07-48-4483Pcalarjdcyn 10 mg tablet Active 0 .ROUTE .COMPLEX 90 3 May 01, 2024 1:14pm TAKE 1 TABLET DAILY Complies with drug therapyStart: 12-26-2022 End: 27-22-3540nvqr 1 tablet by mouth once dailyMontelukast 10 mg tablet Discontinued 10 MG PO Daily 90 90 3 May 23, 2023 4:44pm May 01, 2024 1:14pmMulti Vitamins oral tablet (8 sources)Start: 41-47-4741Yogdj Vitamins oral tablet 1 tab(s), Oral, Daily, 30 tab(s), Refill(s) 0 Start Date: 02/05/24 Status: Ordered Quantity: 30.0 Unit: tab(s) Repeat number: 1Start: 78-63-6473Hspci Vitamins oral tablet 1 tab(s), Oral, Daily, 30 tab(s), Refill(s) 0 Start Date: 02/05/24 Status: Orderedmv- min/iron/folic/calcium/vitK (WOMEN'S MULTIVITAMIN ORAL) (7 sources)mv-min/iron/folic/calcium/vitK (WOMEN'S MULTIVITAMIN ORAL) Take by mouth. Activenitrofurantoin, macrocrystals 100 mg oral capsule (11 sources)Nitrofuran AntibacterialStart: 42-66-5988kquq 1 capsule by mouth once daily at bedtimeNitrofurantoin Macrocrystal 100 mg capsule Active 100 MG PO Daily at bedtime February 05, 2024 12:00am after intercourse Complies with drug therapynitrofurantoin macrocrystal (MACRODANTIN) 100 mg capsule 100 mg by ORAL/FEEDING TUBE route. 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 60 packet 3 07/27 Cgmulu97 hr orphenadrine citrate 100 mg extended release oral tablet (13 sources)Muscle RelaxantStart: 41-54-3791muylkiyokkxf ER (NORFLEX) 100 mg tablet Two tablets daily as needed 40 tablet 0 02/06/2016 Activeorphenadrine compounding powder (8 sources)Start: 49-84-8071qqejwieeqssj compounding powder PRN Migraine headache, Refills(s) 0 Start Date: 02/05/24 Status: Ordered Repeat number: 1 Start: 47-63-7997eukmwiiuzxqa compounding powder PRN Migraine headache, Refills(s) 0 Start Date: 02/05/24 Status: OrderedStart: 65-54-0724rqlepezrohvt compounding powder Refills(s) 0 Start Date: 02/05/24 Status: Orderedoxybutynin chloride 5 mg oral tablet (3 sources)Cholinergic Muscarinic AntagonistStart: 93-12-9467bjdd 1 tablet by mouth three times daily as needed for muscle spasmsoxybutynin 5 mg Tab 5 mg = 1 tab(s), Oral, TID, PRN bladder spasms, # 30 tab(s), Refills(s) 0, Pharmacy: [id number], 158, cm, 03/24/24 11:38:00 EST, Height/Length Dosing, 75.5, kg, 03/24/24 11:38:00 EST, Weight Dosing Start Date: 04/07/24 Status: Orderedpain off aspirin (1 source)Start: 23-76-3902rhkq off aspirin pain off aspirin Start Date: 04/13/21 Status: Orderedpantoprazole 40 mg delayed release oral tablet (20 sources)Proton Pump InhibitorStart: 06-56-5109sqah 1 tablet by mouth in the morningPantoprazole 40 mg tablet,delayed release (DR/EC) Active 40 MG PO Every morning 90 90 January 19, 2025 12:39pm Take on an empty stomach, 30 minutes prior to bkfst Complies with drug therapyStart: 01-27-2024 End: 19-76-3176Excmpvwvhvds 40 mg tablet,delayed release (DR/EC) Discontinued 0 .ROUTE .COMPLEX 90 January 27, 2024 12:59pm January 19, 2025 12:39pm TAKE 1 TABLET DAILY ON AN EMPTY STOMACH FOLLOWED IN 30 MINUTES BY BREAKFASTStart: 12-11-2019 End: 51-33-5450szkf 1 tablet by mouth once dailyPantoprazole 40 mg tablet,delayed release (DR/EC) Discontinued 40 MG PO Daily January 27, 2024 12:00am January 27, 2024 1:00pmtake 1 tablet by mouth twice dailypantoprazole DR (PROTONIX) 40 mg tablet Take 40 mg by mouth two times a day. Active Pantoprazole 40 mg tablet,delayed release (DR/EC) (1 source)Start: 43-85-4847Ryzyejyxkuti 40 mg tablet,delayed release (DR/EC) Active 0 .ROUTE .COMPLEX January 27, 2024 12:59pm TAKE 1 TABLET DAILY ON AN EMPTY STOMACH FOLLOWED IN 30 MINUTES BY BREAKFASTpolyethylene glycol 3350 315322 mg / potassium chloride 2970 mg / sodium bicarbonate 6740 mg / sodium chloride 5860 mg / sodium sulfate 79179 mg powder for oral solution (7 sources)Osmotic LaxativeStart: 14-07-9425evz 3350-Electrolytes (GOLYTELY) 236-22.74-6.74 -5.86 gram suspension Indications: [...] complex 150 mg oral capsule (20 sources)Start: 76-78-4263Nluhhzpoapszcr Iron Complex (Ferrex 150) 150 mg iron capsule Active 150 MG PO Daily February 05, 2024 12:00am Complies with drug therapyStart: 07-40-5023mzhn 150 mg by mouth every other dayFerrex-150 150 mg, Oral, Every other day, Refills(s) 0, Prophylaxis Start Date: 05/22/23 Status: OrderedpredniSONE 20 mg oral tablet (20 sources)Start: 06-21-2023 End: 09-32-7643azfa 1 tablet by mouth once dailypredniSONE (Deltasone) 20 MG tablet Take 20 mg by mouth Daily 06/21/2023 04/30/2024 DiscontinuedStart: 06-21-2023 End: 00-28-1690Ycnzbjfynb 20 mg tablet Discontinued 20 MG PO As Directed June 20, 2023 11:00pm February 05, 2024 8:45am 1 tab tid w/ food x 3 days, then bid w/ food x 3 days, then qd w/ food x 3 daysStart: 20-71-4492grjoavQUJA 20 MG 1 tablet Orally tid w/ food x 3 days then bid w/ food x 3 days, then qd w/ food x 3 days for 9 days Nov, Not-Taking/PRNStart: 71-48-9163wbol 1 tablet by mouth every twelve hoursprednisone [...] HFA 90 mcg/inh inhalation aerosol (19 sources)Start: 24-14-4615skzi 2 puff(s) by inhalation every four hoursProAir HFA 90 mcg/inh inhalation aerosol 2 puff(s), Inhalation, q4hr Shortness of breath or wheezing, Refill(s) 0 Start Date: 09/02/19 Status: Ordered Repeat number: 1Start: 15-89-7996wjrk 2 puff(s) by inhalation every four hoursProAir HFA 90 mcg/inh inhalation aerosol 2 puff(s), Inhalation, q4hr Shortness of breath or wheezing, Refill(s) 0 Start Date: 09/02/19 Status: Orderedsucralfate 1000 mg oral tablet (2 sources)Aluminum ComplexStart: 12-10-2024 End: 94-61-8750nril 1 tablet by mouth four times dailyCarafate 1 gram Tab 1 gm = 1 tab(s), Oral, QID, X 28 day(s), # 112 tab(s), Refills(s) 0, Pharmacy: [id number], 158, cm, 12/10/24 8:44:00 EDT, Height/Length [...] Date: 12/11/19 Status: OrderedTrelegy Ellipta (10 sources)Start: 43-90-4053Vprplev Ellipta Inhalation, Daily, Refills(s) 0, Shortness of breath or wheezing Start Date: 05/14/23 Status: OrderedStart: 63-24-2799Bztccir Ellipta Inhalation, Daily, Refills(s) 0 Start Date: 05/14/23 Status: OrderedTrelegy Ellipta 200 mcg-62.5 mcg-25 mcg/inh inhalation powder (2 sources)Start: 71-43-7405rzry 1 puff(s) by inhalation once dailyTrelegy Ellipta 200 mcg-62.5 mcg-25 mcg/inh inhalation powder puff(s), Inhalation, Daily, Refill(s)0 Start Date: 02/20/23 Status: Orderedtrelegy ellipta 200-62.5-25 mcg/act aerosol powder breath activated (9 sources)Start: 35-50-8924dfdh 1 puff(s) by inhalation once dailyTrelegy Ellipta 200-62.5-25 MCG/ACT 1 puff Inhalation Once a day Feb, Active Start: 17-57-9522krcj 1 puff(s) by inhalation once dailyTrelegy Ellipta 200-62.5-25 MCG/ACT 1 puff Inhalation Once a day for 30 days Feb, Active vit A/vit C/biotin/zinc/copper (QRDN-UFGC-HONE,VIT A,C-BIOTIN, ORAL) (7 sources)vit A/vit C/biotin/zinc/copper (IPBI-ZRZH-KKKI,VIT A,C-BIOTIN, ORAL) Take by mouth. ActiveVitamin D3 (18 sources)Start: 65-29-7389Tqrecwh D3 Oral, Daily, Refills(s) 0, Prophylaxis Start Date: 05/14/23 Status: Ordered Repeat number: 1Start: 74-28-6009Dhgtpmk D3 Oral, Daily, Refills(s) 0, Prophylaxis Start Date: 05/14/23 Status: OrderedStart: 83-71-3875Cbvchzd D3 Refills(s) 0 Start Date: 05/14/23 Status: Ordered Completed/Discontinued Medications MedicationDrug Class(es)DatesSig (Normalized)Sig (Original)acetaminophen 250 mg / aspirin 250 mg / caffeine 65 mg oral tablet (8 sources)Platelet Aggregation Inhibitor, Nonsteroidal Anti-inflammatory Drug, Central Nervous System Stimulant, MethylxanthineStart: 10-21-2018 End: 88-76-5286Kgbouvn-Acetaminophen-Caffeine (Pain-Off) 250-250-65 mg Tablet Discontinued 2 TAB PO As Directed asneeded for Headache October 20, 2018 11:00pm February 05, 2024 8:42amacetaminophen 300 mg / butalbital 50 mg / caffeine 40 mg oral capsule (8 sources)Barbiturate, Central Nervous System Stimulant, Methylxanthine End: 79-27-1277Llvyhncdfw-Acetaminophen-Caff (FIORICET) 50-300-40 mg cap Take by mouth. 12/27/2023 Discontinued (Other)azithromycin 500 mg oral tablet (20 sources)Macrolide AntimicrobialStart: 10-13-2024 End: 10-36-3729gjfw 1 tablet by mouth once dailyAzithromycin 500 mg tablet Discontinued 500 MG PO Daily 3 3 0 October 12, 2024 11:00pm January 12:19pmStart: 45-58-8436Fgsqiewsdndb 250 MG as directed Orally daily for 5 days Nov, Not-Taking/PRNStart: 79-24-5268Jqidpycuitlz 250 MG 2 tablet on the first day, then 1 tablet daily for 4 days Orally Once a day for5 day(s) Oct, Not-Taking/PRNbenazepril hydrochloride 10 mg oral tablet (20 sources)Angiotensin Converting Enzyme InhibitorStart: 10-21-2018 End: 66-44-4662kxkn 1 tablet by mouth once dailyBenazepril 10 mg tablet Discontinued 10 MG PO Daily October 20, 2018 11:00pm February 05, 2024 8:42am HTNbenzonatate 100 mg oral capsule (18 sources)Non-narcotic AntitussiveStart: 25-64-4178txvr 1 capsule by mouth three times daily as neededTessalon Perles 100 MG 1 capsule as needed Orally Three times a day for 7 days Oct, Not-Taking/PRNbisacodyl 5 mg delayed release oral tablet (1 source)Stimulant LaxativeStart: 12-27-2023 End: 42-05-1092cmvn 4 tablets by mouth oncebisacodyl EC (DULCOLAX, BISACODYL,) 5 mg EC tablet Indications: Iron deficiency anemia due to chronic blood loss Take 4 tablets by mouth one time only for 1 dose. For rectal double balloon enteroscopy preparation. 4 tablet 12/27/2023 12/27/2023 ExpiredClaritin-D 12 Hour 5-120 MG (14 sources)Start: 03-02-0789okkj 5-120 mg by mouth twice daily as needed Claritin-D 12 Hour 5-120 MG 1 tablet Orally two times daily, as needed Apr, Not-TakingStart: 77-38-4407dxji 5-120 mg by mouth twice daily as needed Claritin-D 12 Hour 5-120 MG 1 tablet Orally two times daily, as needed for 90 days Apr, Activecodeine phosphate 2 mg/ml / guaiFENesin 20 mg/ml oral solution (20 sources)Opioid AgonistStart: 06-21-2023 End: 16-89-5710hkkm 5 mL by mouth three times daily as neededguaiFENesin-codeine (Robitussin-AC) 100-10 MG/5ML syrup Take 5 mL by mouth 3 (three) times a day as needed 06/21/2023 04/30/2024 DiscontinuedStart: 86-60-4474oxnxzhn-guaifenesin (Robitussin-AC) 10-100 mg/5 mL syrup Every 6 hours 06/21/2023 ActiveStart: 06-19-2023 End: 59-60-1038vken 1 mL by mouth every six hours as needed for coughCodeine- Guaifenesin 10-100 mg/5 mL liquid Discontinued 5 ML PO Every 6 hours as needed for cough 200 10 0 August 09, 2023 3:54pm February 05, 2024 8:43am Cough Cough, unspecifiedStart: 06-19-2023 End: 94-83-9154spvg 1 mL by mouth every six hours as needed for coughCodeine- Guaifenesin 10-100 mg/5 mL liquid Discontinued 5 ML PO Every 6 hours as needed for cough 200 10 June 18, 2023 11:00pm August 09, 2023 12:02pmStart: 06-19-2023 End: 07-94-1769oejm 1 mL by mouth every six hoursCodeine-Guaifenesin Discontinued 5 ML PO Every 6 hours 200 June 19, 2023 12:00am August 09, 2023 1:02pmStart: 42-55-5593vlgg 1 mL by mouth every six hoursCodeine-Guaifenesin Active 5 ML PO Every 6 hours 200 June 19, 2023 12:00amStart: 30-04-6724uxvh 10 mL by mouth every six hours as needed for coughguaiFENesin-Codeine 100-10 MG/5ML 10 mL Orally every 6 hours as needed for cough for 7 days ActiveStart: 57-52-6763dulx 10 mL by mouth every six hours as needed for cough guaiFENesin-Codeine 100-10 MG/5ML 10 mL Orally every 6 hours as needed for cough for 7 days ActiveStart: 87-21-0742ugcm 10 mL by mouth every six hours as needed for coughguaiFENesin-Codeine 100-10 MG/5ML 10 mL Orally every 6 hours as needed for cough for 10 days Dec, Not-TakingcycloSPORINE 0.5 mg/ml ophthalmic suspension (20 sources)Calcineurin Inhibitor ImmunosuppressantStart: 10-21-2018 End: 45-69-2619udrd 1 drop(s) into the eye(s) twice dailyCyclosporine (Restasis) 0.05 % Dropperette Discontinued 1 DROPS OPHTHALMIC Twice daily October 20, 2018 11:00pm February 05, 2024 8:43am Dry eyes End: 07-59-9126xmpw 1 drop(s) into the eye(s) twice dailycycloSPORINE (RESTASIS) 0.05 % ophthalmic emulsion 1 Drop twice daily. 12/27/2023 Discontinued (Other) doxycycline hyclate 100 mg oral capsule (20 sources)Tetracycline-class DrugStart: 06-21-2023 End: 24-11-7794yyod 1 capsule by mouth twice dailyDoxycycline Hyclate [...] Activeestradiol 0.1 mg/ml vaginal cream (20 sources)EstrogenStart: 16-35-7360avctkvaij 0.1 mg/g Vag Crm See Instructions, 42.5 gm, Refill(s) 0, apply pea sized amount to urethra 2x/wk, [facility] #[facility], 158, cm, 02/05/24 11:08:00 EST, Height/Length Dosing, 62, kg, 02/05/24 11:08:00 EST, Weight Dosing Start Date: 02/05/24 Status: Ordered Quantity: 42.5 Unit: g Repeat number: 1Start: 02-05-2024 Estradiol 0.01 % (0.1 mg/gram) cream Active 1 APPLICATOR VAGINAL Twice daily February 05, 2024 12:00am Complies with drug therapyStart: 04-31-8288lesiidejd (Estrace) 0.1 MG/GM vaginal cream See Instructions, 42.5 gm, Refill(s) 0, apply pea sizedamount to urethra 2x/wk, [facility], 158, cm, 02/20/23 8:48:00 EST, Height/Length Dosing, 68.5, kg, 02/20/23 8:48:00 EST, Weight Dosing 02/20/2023 ActiveStart: 21-29-5376eugcmzomn 0.1 mg/g Vag Crm See Instructions, 42.5 gm, Refill(s) 0, apply pea sized amount to urethra 2x/wk, [facility], 158, cm, 02/20/23 8:48:00 EST, Height/Length Dosing, 68.5, kg, 02/20/23 8:48:00 EST, Weight Dosing Start Date: 02/20/23 Status: OrderedStart: 66-40-0537dgulcwlvp 0.1 mg/g vaginal cream See Instructions, Apply pea sized amount to external urethral 3 times a week for 2 weeks (at bedtime), then twice a week after for maintenance, # 42.5 gm, Refills(s) 1, Pharmacy: [facility], 158, cm, 04/13/21 9:47:00 EST, Height/Length Do... Start Date:04/13/21 Status: OrderedStart: 10-21-2018 End: 86-33-1339Llizgkozf (Yuvafem) 10 mcg Tablet Discontinued 10 MCG Twice a Week October 20, 2018 11:00pm February 05, 2024 8:44amStart: 10-21-2018 End: 46-40-8985Jytuexcyn 10 mcg tablet Discontinued October 20, 2018 11:00pm October 21, 2018 2:20pmEstradiol (VAGIFEM) 10 mcg tab vaginal tablet Use 10 mcg vaginally once daily. Activefluconazole 150 mg oral tablet (7 sources)Azole Antifungal End: 44-63-9490vecb 1 tablet by mouth oncefluconazole (DIFLUCAN) 150 mg tablet Take 150 mg by mouth one time only. 12/27/2023 Discontinued (Other)nabumetone 750 mg oral tablet (8 sources)Nonsteroidal Anti-inflammatory DrugStart: 10-21-2018 End: 45-49-9469lhce 1 tablet by mouth once dailyNabumetone 750 mg Tablet Discontinued 1500 MG PO Daily October 20, 2018 11:00pm February 0448:45am Start: 90-13-4539hnwe 1500 mg by mouth once dailyNabumetone Active 1500 MG PO Daily October 21, 2018 12:00amnitrofurantoin, macrocrystals 25 mg / nitrofurantoin, monohydrate 75 mg oral capsule (20 sources)Nitrofuran AntibacterialStart: 39-83-9671Fvejdnch 100 mg Cap 100 mg = 1 cap(s), Oral, As Directed, take 1 tablet within 1 hour before or after intercourse to prevent infection., # 30 cap(s), Refills(s) 3, Pharmacy: [facility], 158, cm, 08/05/24 14:23:00 EDT, Height/Length Dosing, 77.2, kg, 08/05/24 14:23:00 EDT, Weight Dosing Start Date: 10/28/24 Status: Ordered Quantity: 30.0 Unit: cap(s) Repeat number: 4Start: 82-98-6622Yjdhlkkp 100 mg Cap 100 mg = 1 cap(s), Oral, As Directed, take 1 tablet within 1 hour before or after intercourse to prevent infection., # 30 cap(s), Refills(s) 3, Pharmacy: [facility], 158, cm, 02/20/23 8:48:00 EST, Height/Length Dosing, 68.5, kg, 02/20/23 8:48:00 EST, Weight Dosing Start Date: 02/20/23 Status: Orderedomeprazole 40 mg delayed release oral capsule (20 sources)Proton Pump InhibitorStart: 10-21-2018 End: 37-50-2310odfh 1 capsule by mouth once dailyOmeprazole 40 mg Capsule,Delayed Release(Dr/Ec) Discontinued 40 MG PO Daily October 20, 2018 11:00pm February 05, 2024 8:45am GERD/PUDpsyllium 520 mg oral capsule (8 sources)Start: 10-21-2018 End: 38-60-6398Yvagearh Husk (Metamucil) 0.52 gram Capsule Discontinued 1 CAP PO Twice daily October 20, 2018 11:00pm February 05, 2024 8:46am IBS triamcinolone acetonide 40 mg/ml injectable suspension (20 sources)CorticosteroidStart: 72-20-7069Tarxvqw-40 July, 40 mgStart: 15-75-6124Skhrmzd -40 mg May, 40 mg Problems Active Problems Problem ClassificationProblemDateDocumented DateEpisodic/ChronicAcute and chronic tonsillitis (2 sources)Chronic disease of tonsils AND/OR adenoids; Translations: [Other chronic diseases of tonsils and adenoids]ChronicAcute bronchitis (4 sources)Acute bronchitis; Translations: [Acute bronchitis, unspecified]Onset: 17-06-8584KfuvgvxdJxewhjaa reactions (3 sources)Urticaria; Translations: [Unspecified urticaria]EpisodicAnxiety disorders (16 sources)Generalized anxiety disorder; Translations: [Generalized anxiety disorder]ChronicAsthma (20 sources)Asthma; Translations: [Mild persistent asthma]Onset: 05-06-2014 18-63-6881NhleswoFfpqsd (1 source)Asthma; Translations: [Asthma, unspecified, unspecified status]Onset: 48-96-8107Lqcynbl tract disease (4 sources)Postcholecystectomy syndrome; 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]Onset: 19-93-7731MzhtyykrYqwmtetw (20 sources)Bilateral cataracts; Translations: [Artificial lens present]Onset: 654933-05-9978RtroluqDixmayg obstructive pulmonary disease and bronchiectasis (1 source)Bronchitis, not specified as acute or chronicEpisodicDeficiency and other anemia (10 sources)Iron deficiency anemia due to blood loss; Translations: [Iron deficiency anemia secondary to blood loss (chronic)]92-63-0509FqygmjfQqvpjqlxfv and other anemia (3 sources)Iron deficiency anemia secondary to blood loss (chronic); Translations: [Iron deficiency anemia dueto chronic blood loss]Onset: 12-27-2023 ChronicDeficiency and other anemia (2 sources)Anemia due to chronic blood loss; Translations: [Iron deficiency anemia secondary to blood loss (chronic)]Onset: 27-54-6067FuarrxfHxdwnvaoxm and other anemia (1 source)Anemia, unspecifiedEpisodicDeficiency and other anemia (5 sources)Iron deficiency anemia secondary to inadequate dietary iron intake; Translations: [Other iron deficiency anemias]EpisodicDeficiency and other anemia (2 sources)Other iron deficiency anemiasEpisodicDeficiency and other anemia (5 sources)Iron deficiency anemia; Translations: [Iron deficiency anemia, unspecified]Onset: 55-13-3946JbylgjezUwfjsczffh and other anemia (3 sources)Anemia; Translations: [Anemia, unspecified]Onset: 79-24-9406Wagtmnrj Deficiency and other anemia (1 source)Iron deficiency anemia, unspecified; Translations: [Iron deficiency anemia, unspecified]65-07-5589BfhwyqhyXfatkmkm of white blood cells (17 sources)Familial eosinophilia; 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]Onset: 503631-13-8496OtqjdduPtihaawnm of lipid metabolism (20 sources)Hyperlipidemia; Translations: [Pure hypercholesterolemia, unspecified]Onset: 309166-58-8883XipgiddJjhedomch of teeth and jaw (2 sources)Periapical abscess without sinus tract; Translations: [Periapical abscess without sinus]EpisodicDiverticulosis and diverticulitis (3 sources)Diverticula of intestine; Translations: [Diverticulosis of large intestine without perforation or abscess without bleeding]Onset: 05-14-2023 ChronicEsophageal disorders (20 sources)Gastroesophageal reflux disease; Translations: [Esophageal reflux finding]Onset: 576304-70-3847TtythjcZnnledift hypertension (20 sources)Elevated blood pressure; Translations: [Essential (primary) hypertension]Onset: 513473-43-3546PxnsuoqGjsszwl on above:Problem List clean-up per request of Phys. EHR CmteFracture of lower limb (14 sources)Displaced fracture of fifth metatarsal bone, right foot, subsequent encounter for fracture with routine healing; Translations: [Displaced fracture of fifth metatarsal bone, right foot, initial encounter for closed fracture] Onset: 71-48-3182WeyuabmyYfrxrepaf and duodenitis (3 sources)Gastritis; Translations: [Other gastritis without bleeding]Onset: 45-52-8455XgwjakkhZyljcdyzztyrv symptoms and ill-defined conditions (20 sources)Mixed incontinence; Translations: [Incontinence]Onset: 12-01-2021 ChronicHeadache; including migraine (20 sources)Tension-type headache; Translations: [Tension-type headache, unspecified, not intractable]Onset: 01-12-2016 Resolved: 172533-08-3874GaomultLdahhkx on above:Problem List clean-up per request of Phys. EHR CmteHemorrhoids (2 sources)Hemorrhoids; Translations: [Other hemorrhoids]Onset: 05-30-2023 EpisodicInflammation; infection of eye (except that caused by tuberculosis or sexually transmitteddisease) (17 sources)Keratoconjunctivitis sicca; Translations: [Keratoconjunctivitis sicca, not specified as Sjogren's, bilateral]Onset: hronic Intestinal obstruction without hernia (9 sources)Stricture of intestine; Translations: [Other intestinal obstruction unspecified as to partial versus complete obstruction]Onset: 88-99-9780Lfqiweut Joint disorders and dislocations; trauma-related (2 sources)Disorder of right patellofemoral joint; Translations: [Patellofemoral disorders, right knee]Onset: 56-72-2800KtphixyQxbmwigdgvxrs mental health disorders (2 sources)Primary insomnia; Translations: [Primary insomnia]ChronicNausea and vomiting (4 sources)Nausea; Translations: [Nausea]Onset: 09-78-4467VkbfweveJqhtjdslg of unspecified nature or uncertain behavior (2 sources)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; Translations: [Neoplasm of unspecified behavior of other genitourinary organ]Onset: 88-97-7847AxrhobxpAdxrniyskrrxt gastroenteritis (4 sources)Noninfectious enteritis; Translations: [Noninfective gastroenteritis and colitis, unspecified]Onset: 71-79-5891QgkimrzwSpvypusesvbn breast conditions (15 sources)Fibrocystic disease of breast; Translations: [Diffuse cystic mastopathy of unspecified breast]Onset: 763248-91-4335RchyjzsVtwbmhdhrot deficiencies (16 sources)Vitamin D deficiency; Translations: [Vitamin D deficiency, unspecified]ChronicOsteoarthritis (20 sources)Arthritis of acromioclavicular joint; Translations: [Primary osteoarthritis, right shoulder]Onset: 134645-33-1970LdphrecHoxuqlpqybir (20 sources)Age-related osteoporosis without current pathological fracture; Translations: [Primary osteoporosis]Onset: 40-65-5357VjffpezZpiob acquired deformities (15 sources)Equinus contracture of the ankle; Translations: [Contracture, right ankle]Onset: 281773-62-9155AhmvswmSrvot aftercare (1 source)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; Translations: [[facility] CURRENT USE OF ASPIRIN]Onset: 56-26-9421EoylgafiQrfgi aftercare (3 sources)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; Translations: [[facility] CURRENT DRUG THERAPY]Onset: 85-46-4668IwiigtccGwfjb aftercare (1 source)Long-term current use of drug therapy; Translations: [Other intermediate (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 therapy]EpisodicOther bone disease and musculoskeletal deformities (2 sources)Other specified disorders of bone density and structure, left thigh; Translations: [Other specifieddisorders of bone density and structure, left thigh]EpisodicOther connective tissue disease (20 sources)Supraspinatus tear; Translations: [Unspecified rotator cuff tear or rupture of left shoulder, not specified as traumatic]99-04-1275OpotkjpkJdgyv connective tissue disease (2 sources)Unspecified rotator cuff tear or rupture of left shoulder, not specified as traumaticOnset: 10-10-2021 Resolved: 23-76-8164LclxfwrpStkcm connective tissue disease (2 sources)Prepatellar bursitis of left knee; Translations: [Prepatellar bursitis, left knee]EpisodicOther diseases of bladder and urethra (8 sources)Urethral intrinsic sphincter deficiency; Translations: [Intrinsic sphincter deficiency (ISD)]Onset: 30-09-0549IlzenuipGwgcw diseases of kidney and ureters (1 source)Vesicoureteric reflux; Translations: [Vesicoureteral-reflux, unspecified]Onset: 26-23-9831IgsbbabwEzcnp disorders of stomach and duodenum (20 sources)Stricture of duodenum; Translations: [Obstruction of duodenum]Onset: 703067-50-2516SfarzidCulrj gastrointestinal disorders (2 sources)Irritable bowel syndrome characterized by constipation; Translations: [Irritable bowel syndrome with constipation]ChronicOther gastrointestinal disorders (1 source)Oropharyngeal dysphagia; Translations: [Dysphagia, oropharyngeal phase]EpisodicOther gastrointestinal disorders (1 source)Dysphagia, oropharyngeal phase; Translations: [Dysphagia, oropharyngeal phase]EpisodicOther gastrointestinal disorders (2 sources)H/O: gastrointestinal disease; Translations: [Personal history of other diseases of the digestive system]Onset: 38-77-7170HvqojnslKjtch gastrointestinal disorders (1 source)Non-steroidal anti-inflammatory drug-induced enteropathy; Translations: [Disease of intestine, unspecified]84-40-2654RazxuhmpAatjd inflammatory condition of skin (1 source)Seborrheic dermatitis; [...] sources)Post-inflammatory pulmonary fibrosis; Translations: [Pulmonary fibrosis, unspecified]Onset: 483527-43-2336EqtdtfnKjkux lower respiratory disease (1 source)Personal history of pneumonia (recurrent); Translations: [PERSONAL HX OF PNEUMONIA RECURRENT]Onset: 10-56-8505ZcclbijuEuyru nervous system disorders (20 sources)Chronic pain; Translations: [Other chronic pain]ChronicOther non- traumatic joint disorders (5 sources)Pain in left shoulder; Translations: [Left shoulder pain]Onset: 10-10-2021 Resolved: 05-89-9745WgqtigczTvgth nutritional; endocrine; and metabolic disorders (1 source)Overweight; Translations: [Overweight]EpisodicOther nutritional; endocrine; and metabolic disorders (1 source)Overweight; Translations: [Overweight]EpisodicOther screening for suspected conditions (not mental disorders or infectious disease) (20 sources)Encounter for screening mammogram for malignant neoplasm of breast; Translations: [Abnormal findings on diagnostic imaging of skull and head]Onset: 45-90-8208PfsmlvjbTnpkl skin disorders (17 sources)Lichen sclerosus et atrophicus; Translations: [Circumscribed scleroderma]Onset: 688135-12-0839TgoqtceOhhcu upper respiratory disease (20 sources)Allergic rhinitis due to pollen; Translations: [Allergic rhinitis due to pollen]Onset: 297119-75-9918XtockguLopaf upper respiratory disease (2 sources)Seasonal allergic rhinitis; Translations: [Other seasonal allergic rhinitis]Onset: 25-67-2401IvxxckiXdone upper respiratory disease (15 sources)Allergic rhinitis; Translations: [Allergic rhinitis, unspecified] 24-53-5607EjddiuzHtuwm upper respiratory disease (1 source)Allergic rhinitis, unspecified; Translations: [Allergic rhinitis, unspecified]ChronicOther upper respiratory disease (1 source)Allergic rhinitis due to pollenChronicOther upper respiratory disease (3 sources)Other allergic rhinitisChronicOther upper respiratory disease (2 sources)Dysphonia; Translations: [Dysphonia]EpisodicOther upper respiratory infections (20 sources)Chronic maxillary sinusitis; Translations: [Chronic maxillary sinusitis]Onset: 882294-33-3214MqkrqxjBtjdd upper respiratory infections (8 sources)Acute maxillary sinusitis; Translations: [Acute recurrent maxillary sinusitis]Onset: 30-80-2751VrzylfxoAnrwhv media and related conditions (4 sources)Eustachian tube disorder; Translations: [Other specified disorders of Eustachian tube, unspecified ear]EpisodicPoisoning by other medications and drugs (4 sources)Non-steroidal anti-inflammatory drug adverse reaction; Translations: [Adverse effect of other nonsteroidal anti-inflammatory drugs [NSAID], initial encounter]Onset: 198000-84-5798YjyavwsiPgnbaivy enteritis and ulcerative colitis (15 sources)Ulcerative colitis; Translations: [Ulcerative colitis, unspecified, without complications]Onset: 267679-13-4070AqjudscSltotbng codes; unclassified (1 source)Acquired absence of other specified parts of digestive tract; Translations: [ACQ ABSENCE OTH PART DIGESTV TRACT]Onset: 98-94-6909Gpmyltms Residual codes; unclassified (1 source)Asymptomatic menopausal stateEpisodicResidual codes; unclassified (2 sources)Postmenopausal state; Translations: [Asymptomatic menopausal state] 10-83-0718XrzmcclxJtbjppfi codes; unclassified (3 sources)Acquired absence of organ; Translations: [Acquired absence of other specified parts of digestive tract]Onset: 66-99-5666SmbnbyquBmpnuasfisa; intervertebral disc disorders; other back problems (20 sources)Cervical spondylosis; Translations: [Spondylosis without myelopathy or radiculopathy, cervical region]Onset: 219717-19-6223FhyymsgEucvpfd on above:MRI: L2-3 mod left foraminal stenosis, L3-4 mod left foraminal stenosis, L5S1 mod right foraminal stenosis - 12/2024Spondylosis; intervertebral disc disorders; other back problems (20 sources)Cervico-occipital neuralgia; Translations: [Occipital neuralgia] 07-39-2547QqvjunicCcegcpg and strains (12 sources)Strain of unspecified muscle, fascia and tendon at shoulder and upper arm level, left arm, initial encounter; Translations: [Strain of muscle and tendon of back wall of thorax, initial encounter]Onset: 78-24-4546Fnthmnfb Superficial injury; contusion (2 sources)Contusion of left knee; Translations: [Contusion of left knee, initial encounter]EpisodicSystemic lupus erythematosus and connective tissue disorders (1 source)Autoimmune disease; Translations: [Autoimmune disease, not elsewhere classified]Onset: 33-79-1025JmwmkkrLbtgvfd disorders (20 sources)Autoimmune hypothyroidism; 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 EHR CmteUnclassified (20 sources)Asymptomatic microscopic mnrceeqtd37-76-9792Ofszeykvabho (20 sources)Finding of sensation of zcuuveq03-85-1103Ptnyunferovc (1 source)CONTACT W/AND (SUSP) EXPOS COVID-19; Translations: [CONTACT W/AND (SUSP) EXPOS COVID-19]Onset: 20-42-8960Fcgqntlykwwd (2 sources)Exposure to acute respiratory syndrome coronavirus 2; Translations: [Contact with and (suspected) exposure to COVID-19]Unclassified (1 source)Long-term current use of drug therapy; Translations: [Long-term (current) use of other medications]Onset: 90-77-7389Dqpruhbopgap (1 source)Autoimmune disease, not elsewhere classified; Translations: [Autoimmune disease, not elsewhere classified]Onset: 70-22-0817Jjgsxqayveps (1 source)Unspecified urticaria; Translations: [Unspecified urticaria] Unclassified (1 source)Other specified disorders of rotator cuff syndrome of shoulder and allied disorders; Translations: [Other specified disorders of rotator cuff syndrome of shoulder and allied disorders]Onset: 31-16-9329Lgvxcukzlyrm (1 source)Long-term (current) use of other medications; Translations: [Long-term (current) use of other medications]Onset: 92-79-2051Tcolbpqqwvnd (1 source)Bacterial infection, unspecified, in conditions classified elsewhere and of unspecified site; Translations: [Bacterial infection, unspecified, in conditions classified elsewhere and of unspecified site]Onset: 08-08-2015 Unclassified (1 source)Pain in joint, ankle and foot; Translations: [Pain in joint, ankle and foot]Onset: 88-49-2823Pakzvawwwjcb (13 sources)Stricture of small odmmnnaqt95-36-0916Zjewvmwksyip (2 sources)New Patient Visit; Translations: [New Patient Visit]Onset: 09-14-2023 Unclassified (5 sources)Lesion of aizymdp24-93-3895 Past or Other Problems Problem ClassificationProblemDateDocumented DateEpisodic/ChronicAbdominal pain (20 sources)Epigastric pain; Translations: [Epigastric pain]Onset: 07-25-2023 56-83-1955HnbyvztrKddtckpin infection; unspecified site (1 source)Bacterial infectious disease; Translations: [Bacterial infection, unspecified, in conditions classified elsewhere and of unspecified site]Onset: 77-85-6913PxinldyqE Codes: Natural/environment (1 source)Overexertion from prolonged static or awkward postures, initial encounter; Translations: [OVEREXERTPROLNG STAT/AWK PST INIT]Onset: 03-13-2022 EpisodicEsophageal disorders (6 sources)Esophageal disorders; Translations: [Gastro-esophageal reflux disease with esophagitis, without bleeding]Gastroduodenal ulcer (except hemorrhage) (20 sources)H/O: gastric ulcer; Translations: [H/O: peptic ulcer]Onset: 12-10-2013 Resolved: 601800-51-0117KyjublzsKarobjdkstipc symptoms and ill-defined conditions (20 sources)Sensation as if bladder still full; Translations: [Feeling of incomplete bladder emptying]Onset: 07-87-5974MjlhxkqyRhhojerw; including migraine (2 sources)Headache; Translations: [Headache]Onset: 54-98-6540Ouokgxlc Inflammation; infection of eye (except that caused by tuberculosis or sexually transmitteddisease) (17 sources)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; Translations: [Unspecified blepharitis right eye, upper and lower eyelids]Onset: 466163-31-5570OsnzkfwbEncyiadzsq disorders (1 source)Hormone replacement therapy; Translations: [HORMONE REPLACEMENT THERAPY]Onset: 09-87-5722FhmeuvmcWrkerdnghuz chest pain (2 sources)Chest pain; Translations: [Other chest pain]Onset: 47-12-6506Xmqbctpd Other and unspecified benign neoplasm (20 sources)History of polyp of colon; Translations: [History of colonic polyps] Onset: 291448-35-1414YtfdlyrfWhevi bone disease and musculoskeletal deformities (20 sources)Osteopenia; Translations: [Other specified disorders of bone density and structure, unspecified site]Onset: 311842-38-0596UewsfsyxYnazj bone disease and musculoskeletal deformities (1 source)Bone density finding; Translations: [Other specified disorders of bone density and structure, unspecified site]Onset: 43-43-5502PrhbabadDsfml bone disease and musculoskeletal deformities (1 source)Other specified disorders of bone density and structure, unspecified site; Translations: [Oth disrdof bone density and structure, unspecified site] Onset: 03-50-1250DummjwwtQwkja connective tissue disease (3 sources)Pain in right foot; Translations: [PAIN IN RIGHT FOOT]Onset: 36-08-1064EapedgfzNsnmq connective tissue disease (1 source)Disorder of rotator cuff; Translations: [Other specified disorders of rotator cuff syndrome of shoulder and allied disorders]Onset: 99-64-1853Bqnkhzbb Other connective tissue disease (1 source)Plantar fascial fibromatosis; Translations: [Plantar fascial fibromatosis]Onset: 84-96-4510XbcoeyfmJttmu connective tissue disease (2 sources)Achilles bursitis; Translations: [Achilles bursitis or tendinitis] Onset: 12-50-0978SdfubwaiOrvdc connective tissue disease (1 source)Plantar fascial fibromatosis; Translations: [Plantar fascial fibromatosis]Onset: 33-92-5204ApevfjvfMbres connective tissue disease (20 sources)Right achilles tendonitis; Translations: [Achilles tendinitis, right leg]Onset: 970627-01-4587WobszetgFozxp diseases of bladder and urethra (20 sources)Urethral caruncle; Translations: [Urethral caruncle]Onset: 42-95-3905FsojwutwFsias gastrointestinal disorders (20 sources)Abdominal bloating; Translations: [Abdominal distension (gaseous)] Onset: 581897-02-8298MkggkghmEwjhx gastrointestinal disorders (15 sources)Dysphagia; Translations: [Dysphagia, pharyngoesophageal phase]Onset: 560894-92-6490WenfubfbEsjwu injuries and conditions due to external causes (15 sources)Aspiration into respiratory tract; Translations: [Unspecified foreign body in respiratory tract, part unspecified causing other injury, initial encounter]Onset: 189528-24-8429ArtmmsrzCtmdc lower respiratory disease (20 sources)Chronic cough; Translations: [Chronic cough]Onset: 07-02-2023 EpisodicOther lower respiratory disease (15 sources)Lung field abnormal; Translations: [Other nonspecific abnormal finding of lung field]Onset: 06-27-2023 Resolved: 014647-68-9421KlurunysXjfjm nervous system disorders (2 sources)Ataxic gait; Translations: [Ataxic gait]Onset: 81-06-7596Cjedvbij Other non-traumatic joint disorders (1 source)Arthralgia of the upper arm; Translations: [Pain in unspecified elbow] Onset: 60-61-7373WcvzvcvfMwrrw non-traumatic joint disorders (1 source)Shoulder joint pain; Translations: [Pain in right shoulder]Onset: 15-28-6815JbuwnvlfVriwl non-traumatic joint disorders (1 source)Arthralgia of the ankle and/or foot; Translations: [Pain in joint, ankle and foot]Onset: 97-37-7524HlyqnvoaSdqcq non-traumatic joint disorders (1 source)Pain in unspecified elbow; Translations: [Pain in unspecified elbow] Onset: 90-06-6324WpufgnpuDkxti non-traumatic joint disorders (1 source)Pain in right shoulder; Translations: [Pain in right shoulder]Onset: 84-10-4129WlzxglpgFgdzp nutritional; endocrine; and metabolic disorders (6 sources)Body mass index 25-29 - overweight; Translations: [Body mass index 28.0-28.9, adult]Onset: 62-21-8949HhooweaaSsatl skin disorders (2 sources)Disorder of skin and/or subcutaneous tissue; Translations: [Disorder of the skin and subcutaneous tissue, unspecified]Onset: 13-83-3385ZrfspoehLkasr upper respiratory disease (15 sources)Chronic hoarseness; Translations: [Dysphonia]Onset: 06-27-2023 23-29-1487GeegbdbaYtpeu upper respiratory disease (15 sources)Stridor; Translations: [Stridor]Onset: 829518-52-8623Irkiqwju Residual codes; unclassified (1 source)Family history of malignant neoplasm of breast; Translations: [FAMILY HX MALIG NEOPLASM OF BREAST]Onset: 51-71-9908EwcxpihiMigphcwu codes; unclassified (1 source)Family history of malignant neoplasm of other organs or systems; Translations: [FAM HX MALIG NEOPLASM OTH ORGN/SYS]Onset: 17-23-7793Dmlyvefj Unclassified (1 source)Onset: 623664-85-1191Pjbbaxt tract infections (20 sources)Urinary tract infectious disease; Translations: [Urinary tract infection, site not specified]Onset: 12-01-2021 Resolved: 69-72-5526Ebnhesjm Results Test NameValueInterpretationReference RangeFacilityX-ray reportOrdered By: Abe Lu on 88-58-3414Kztpm reportPARK[facility] [address] [place] [address] XRay Report Signed Patient: Munira Chester MR#: [id number] : 1950 Acct:[id number] Age/Sex: 74 / F ADM Date: 5 [place]: [facility]: Espinoza Ruiz MD Copies to: Espinoaz Ruiz MD~ Ordering Provider: Espinoza Ruiz MD [...] 8:34 PM Dictation Location: RADIO-PC-20 Transcribed By: [facility] 01/25/252033 Dictated By: Abe Lu DO 01/25/252032 Signed By: 01/25/252033 [facility] HospitalXR shoulder LT min 2V*on 78-29-2043IJ shoulder LT min 2V*[facility] [address] [place] [place] [address] XRay Report Signed Patient: Munira Chester MR#: [id number] : 1950 Acct:[id number] Age/Sex: 74 / F ADM Date: 01/25/25 Loc: [facility]: [facility]: Espinoza Ruiz MD Copies [...] 8:34 PM Dictation Location: RADIO-PC-20 Transcribed By: [facility] 01/25/252033 Dictated By: Abe Lu DO 01/25/252032 Signed By: 01/25/252033[facility] Physician GroupBasophils Auto (Bld) [#/Vol] Ordered By: Chrissy Hector on 96-55-4410Mguttuirp (Bld) [#/Vol]0.1 10 3/uL 0.0-0.1FWood County HospitalBasophils/100 WBC Auto (Bld)Ordered By: Chrissy Hector on 17-97-6952Hflffugvp/100 WBC (Bld)0.4 %0.2-2.0[facility] HospitalEosinophils/100 WBC Auto (Bld)Ordered By: Chrissy Hector on 66-88-4928Qfdtjmquyjt/100 WBC (Bld)5.0 %0.9-7.0[facility] HospitalErythrocyte distribution width Auto (RBC) [Ratio]Ordered By: Chrissy Hector on 38-18-0275Kepdcamnudy distribution width (RBC) [Ratio]13.0 %11.0-15.0 [facility] HospitalGlobulin Calc (S) [Mass/Vol]Ordered By: Chrissy Hector on 60-55-0758Hocbdcdx (S) [Mass/Vol]3.6 g/dLOur Lady Of Mercy HospitalGlomerular filtration rate (GFR) estimation in non- AmericanOrdered By: Chrissy Hector on 81-95-7188QFC/1.73 sq M.predicted among non-blacks MDRD (S/P/Bld) [Vol rate/Area]59 mL/min/{1.73_m2}Low>=60 mL/min/1.73m 2FWood County HospitalHematocrit Auto (Bld) [Volume fraction]Ordered By: Chrissy Hector on 55-77-6410Ervzwlcpuk (Bld) [Volume fraction]41.1 %36.0-48.0 [facility] HospitalHemoglobin [Mass/volume] in BloodOrdered By: Chrissy Hector on 79-64-7095Bcipagpgxc (Bld) [Mass/Vol]13.5 g/dL12.0-16.0 [facility] HospitalIron binding capacity [Mass/volume] in Serum or PlasmaOrdered By: Chrissy Hector on 81-22-6491Gtjt binding capacity [Mass/Vol] 287.0 ug/dL250.0-450.0[facility] HospitalIron saturation [Mass Fraction] in Serum or PlasmaOrdered By: Chrissy Hector on 49-91-9201Tpyd saturation [Mass fraction]26.8 %[facility] HospitalLaboratory - Chemistry and Chemistry - challengeOrdered By: Chrissy Hector on 01-19-2025 Albumin [Mass/Vol]4.0 g/dL3.4-5.0[facility] HospitalALP [Catalytic activity/Vol]120 U/MNbkg37-520HzcodejifOur Lady Of Mercy HospitalALT [Catalytic activity/Vol]25 U/J12-65UuohuyowyOur Lady Of Mercy HospitalAST [Catalytic activity/Vol]17 U/J90-76UqtzohsgrOur Lady Of Mercy HospitalBilirubin [Mass/Vol]0.6 mg/dL0.2-1.0[facility] HospitalCalcium [Mass/Vol]9.2 mg/dL 8.5-10.1FWood County HospitalChloride [Moles/Vol]106 mmol/L98-107 [facility] HospitalCO2 [Moles/Vol]26.7 mmol/L21.0-32.0[facility] HospitalCobalamin (Vitamin B12) [Mass/Vol]712 pg/nB280-6090 [facility] HospitalComment on above:Performed at: [facility] [id number] Director: Bj Hair PhD, Phone: [phone] [Mass/Vol]0.94 mg/dL0.55-1.02[facility] HospitalFerritin [Mass/Vol]334.0 ng/mLHigh8.0-252.0[facility] HospitalGFR/1.73 sq M.predicted MDRD (S/P/Bld) [Vol rate/Area] mL/min/{1.73_m2}>=60 mL/min/1.73m 2FWood County HospitalGlucose [Mass/Vol]89 mg/aC55-166SjkhqlwlkOur Lady Of Mercy HospitalIron [Mass/Vol]77.0 ug/dL50.0-170.0[facility] HospitalPotassium [Moles/Vol]3.3 mmol/L Low3.5-5.1FWood County HospitalProtein [Mass/Vol]7.6 g/dL6.4-8.2 [facility] Campusodium [Moles/Vol]145 mmol/C644-092OoganakffOur Lady Of Mercy HospitalUrea nitrogen [Mass/Vol]16.0 mg/dL7.0-18.0[facility] HospitalUrea nitrogen/Creatinine [Mass ratio]17.0 mg/mgOur Lady Of Mercy HospitalLaboratory - Hematology and Cell countsOrdered By: Chrissy Hector on 49-79-2250Tlyrlerz granulocytes/100 WBC (Bld)0.5 %0.0-0.5 [facility] HospitalLeukocytes [#/volume] corrected for nucleated erythrocytes in Blood by Automated counOrdered By: Chrissy Hector on 01-19-2025 WBC corrected for nucl RBC Auto (Bld) [#/Vol]11.3 10 3/uLHigh4.0-11.0[facility] HospitalLymphocytes Auto (Bld) [#/Vol]Ordered By: Chrissy Hector on 79-88-4037Opneddyihel (Bld) [#/Vol]1.2 10 3/uL1.2-3.8[facility] HospitalLymphocytes/100 WBC Auto (Bld)Ordered By: Chrissy Hector on 76-43-3707Kuhuxpiaezz/100 WBC (Bld)10.3 %Low20.5-60.0[facility] HospitalH Auto (RBC) [Entitic mass]Ordered By: Chrissy Hector on 26-63-8179IXG (RBC) [Entitic mass]31.3 pg26.7-34.0[facility] HospitalMCHC Auto (RBC) [Mass/Vol]Ordered By: Chrissy Hector on 06-59-0085BCPJ (RBC) [Mass/Vol] 32.8 g/dL29.9-35.2FWood County HospitalMCV Auto (RBC) [Entitic vol] Ordered By: Chrissy Hector on 09-15-5819MSC (RBC) [Entitic vol]95.4 fL81.0-99.0 [facility] HospitalMonocytes Auto (Bld) [#/Vol]Ordered By: Chrissy Hector on 40-63-9714Thpybcbie (Bld) [#/Vol]0.8 10 3/uL0.3-0.8[facility] HospitalMonocytes/100 WBC Auto (Bld)Ordered By: Chrissy Hector on 43-93-5375Cpcalmhsi/100 WBC (Bld)6.6 %1.7-12.0[facility] Neutrophils Auto (Bld) [#/Vol]Ordered By: Chrissy Hector on 01-19-2025 Neutrophils (Bld) [#/Vol]8.7 10 3/uLHigh1.4-6.5FWood County Hospital Neutrophils/100 WBC Auto (Bld)Ordered By: Chrissy Hector on 01-19-2025 Neutrophils/100 WBC (Bld)77.2 %High43.0-75.0[facility] HospitalNo Panel InformationOrdered By: Chrissy Hector on 203911-Eeynlyd Vitamin D Total47.5 ng/mLOur Lady Of Mercy HospitalComment on above:<20 ng/mL Vit D lfejsbinm36-<30 ng/mL Vit D ocpccdtfuhfh66-000 ng/mL Vit D sufficient>100 ng/mL Potential ToxicityEosinophils # (Auto)0.6 10 3/uL0.0-0.7FWood County HospitalImmature Granulocyte # (Auto)0.06 10 3/uLHigh0.00-0.03[facility] HospitalPlatelet mean volume Auto (Bld) [Entitic vol]Ordered By: Chrissy Hector on 35-56-9552Ksrskivt mean volume (Bld) [Entitic vol]9.3 fLLow 9.5-13.5FWood County HospitalPlatelets Auto (Bld) [#/Vol]Ordered By: Chrissy Hector on 46-68-2186Ukivifjhf (Bld) [#/Vol]417 10 3/hV083-801YaltexphxOur Lady Of Mercy HospitalRBC Auto (Bld) [#/Vol]Ordered By: Chrissy Hector on 25-12-6697PYA (Bld) [#/Vol]4.31 10 6/uL4.20-5.40[facility] Barberton Campuserum or plasma albumin/globulin mass ratioOrdered By: Chrissy Hector on 97-95-2763Lnwmkul/Globulin [Mass ratio]1.1 {ratio}[facility] Campuserum or plasma anion gap determinationOrdered By: Chrissy Hector on 87-80-7145Plpyh gap [Moles/Vol]15.6 mmol/LFWood County Hospital Ambulatory Visit Summaryon 42-12-4330Pkzxyufrle Visit SummaryAmbulatory Visit Summary MUNIRA CHESTER :1950 [...] spray) fluticasone nasal (fluticasone 0.05 mg/inh Nasal [place]) fluticasone-vilanterol (Breo Ellipta 200 mcg-25 mcg/inh inhalation [...] fluticasone nasal (fluticasone 0.05 mg/ inh Nasal [place]) 2 Sprays Nasal Inhalation Every day Contact [...] Mouth Every day Contact pres (morecontent not included)...[facility] G[facility]enterology Office/Clinic Noteon 70-35-2995Hsppguvcggsddlpx Office/Clinic NoteGastroenterology Office/Clinic Note Chief Complaint Patient [...] treated with z-pack for GI bacteria at [place] back pain Review of Systems PHQ Score [...] day(s), # 112 tab(s), Refills(s) 0, Pharmacy: [facility], 158, cm, 12/10/24 8:44:00 EDT, [...] medications other than NS (more content not included)...[facility] SouthComment on above: Result Comment: Electronically Signed By: Tho VILLEGAS, Del Duckworth\.br\Date and Time Signed: 12/10/2508:09 EDTBasophils Auto (Bld) [#/Vol]Ordered By: Abe Mojica on 62-56-0620Fopjsgrhh (Bld) [#/Vol]0.0 10 3/uL0.0-0.1FWood County HospitalBasophils/100 WBC Auto (Bld)Ordered By: Abe Mojica on 34-02-9698Cuubepbtx/100 WBC (Bld)0.2 %0.2-2.0[facility] Eosinophils/100 WBC Auto (Bld)Ordered By: Abe Mojica on 10-02-2024 Eosinophils/100 WBC (Bld)1.1 %0.9-7.0[facility] Erythrocyte distribution width Auto (RBC) [Ratio]Ordered By: Abe Mojica on 50-05-6594Esczwgtltdg distribution width (RBC) [Ratio]12.5 %11.0-15.0[facility] HospitalGlomerular filtration rate (GFR) estimation in non- AmericanOrdered By: Abe Mojica on 10-62-1362VMH/1.73 sq M.predicted among non-blacks MDRD (S/P/Bld) [Vol rate/Area]mL/min/{1.73_m2}>=60 mL/min/1.73m 2FWood County HospitalHematocrit Auto (Bld) [Volume fraction]Ordered By: Abe Mojica on 27-41-3854Uvjwvckguh (Bld) [Volume fraction]37.4 %36.0-48.0 [facility] HospitalHemoglobin [Mass/volume] in BloodOrdered By: Abe Mojica on 16-18-8550Akfjiwbtlb (Bld) [Mass/Vol]12.8 g/dL12.0-16.0 [facility] HospitalLaboratory - Chemistry and Chemistry - challengeOrdered By: Abe Mojica on 00-81-3223Utkbuuc [Mass/Vol]9.0 mg/dL 8.5-10.1FWood County HospitalChloride [Moles/Vol]106 mmol/L98-107 [facility] HospitalCO2 [Moles/Vol]23.5 mmol/L21.0-32.0[facility] HospitalCreatinine [Mass/Vol]0.81 mg/dL0.55-1.02[facility] HospitalGFR/1.73 sq M.predicted MDRD (S/P/Bld) [Vol rate/Area] mL/min/{1.73_m2}>=60 mL/min/1.[address]m [address] [place], [place] [address]Glucose [Mass/Vol]99 mg/yP72-770SzwgnumglOur Lady Of Mercy HospitalPotassium [Moles/Vol] 3.5 mmol/L3.5-5.1FAkron Children's Hospitalodium [Moles/Vol]143 mmol/L 136-145[facility] HospitalUrea nitrogen [Mass/Vol]12.0 mg/dL 7.0-18.0[facility] HospitalUrea nitrogen/Creatinine [Mass ratio] 14.8 mg/mgOur Lady Of Mercy HospitalLaboratory - Hematology and Cell countsOrdered By: Abe Mojica on 18-17-2207Kdoanqkc granulocytes/100 WBC (Bld) 0.4 %0.0-0.5FWood County HospitalLeukocytes [#/volume] corrected for nucleated erythrocytes in Blood by Automated counOrdered By: Abe Mojica on 67-99-9877DKE corrected for nucl RBC Auto (Bld) [#/Vol]9.6 10 3/uL4.0-11.0 [facility] HospitalLymphocytes Auto (Bld) [#/Vol]Ordered By: Abe Mojica on 96-85-7918Dzoeeqidnhg (Bld) [#/Vol]1.1 10 3/uLLow1.2-3.8 [facility] HospitalLymphocytes/100 WBC Auto (Bld)Ordered By: Abe Mojica on 06-50-9229Hafvxcrgutd/100 WBC (Bld)11.2 %Low20.5-60.0[facility] Auto (RBC) [Entitic mass]Ordered By: Abe Mojica on 66-62-2017RTJ (RBC) [Entitic mass]32.2 pg26.7-34.0[facility] HospitalMCHC Auto (RBC) [Mass/Vol]Ordered By: Abe Mojica on 90-09-9173XAFC (RBC) [Mass/Vol]34.2 g/dL29.9-35.2FWood County HospitalMCV Auto (RBC) [Entitic vol]Ordered By: Abe Mojica on 51-49-4982EMP (RBC) [Entitic vol]94.2 fL81.0-99.0[facility] HospitalMonocytes Auto (Bld) [#/Vol]Ordered By: Abe Mojica on 27-76-9286Dxlwqpnnw (Bld) [#/Vol]1.1 10 3/uL High0.3-0.8[facility] HospitalMonocytes/100 WBC Auto (Bld)Ordered By: Abe Mojica on 00-71-1545Yhnjlopqu/100 WBC (Bld)11.0 %1.7-12.0[facility] HospitalNeutrophils Auto (Bld) [#/Vol]Ordered By: Abe Mojica on 80-64-7195Ykvrikwllqy (Bld) [#/Vol]7.3 10 3/uLHigh1.4-6.5FWood County HospitalNeutrophils/100 WBC Auto (Bld)Ordered By: Abe Mojiac on 23-98-4139Kvnshjbgtph/100 WBC (Bld)76.1 %High43.0-75.0[facility] HospitalNo Panel InformationOrdered By: Abe Mojica on 91-45-9032Mijwnfsrbbh difficile (PCR)(LAB)NegativeOur Lady Of Mercy HospitalEosinophils # (Auto)0.1 10 3/uL0.0-0.7FWood County HospitalImmature Granulocyte # (Auto)0.04 10 3/uLHigh0.00-0.03[facility] HospitalPlatelet mean volume Auto (Bld) [Entitic vol]Ordered By: Abe Mojica on 84-98-6077Gcjjpoop mean volume (Bld) [Entitic vol]9.6 fL9.5-13.5FWood County Hospital Platelets Auto (Bld) [#/Vol]Ordered By: Abe Mojica on 70-90-1643Qnqtrgcce (Bld) [#/Vol]299 10 3/cM219-693FsigwaaeeOur Lady Of Mercy HospitalRBC Auto (Bld) [#/Vol]Ordered By: Abe Mojica on 92-83-9054ZPZ (Bld) [#/Vol]3.97 10 6/uLLow 4.20-5.40[facility] Campuserum or plasma anion gap determinationOrdered By: Abe Mojica on 28-31-3840Pfvpu gap [Moles/Vol]17.0 mmol/LFWood County HospitalAmbulatory Visit Summaryon 08-05-2024 Ambulatory Visit SummaryAmbulatory [...] spray) fluticasone nasal (fluticasone 0.05 mg/inh Nasal [place]) fluticasone-vilanterol (Breo Ellipta 200 mcg-25 mcg/inh inhalation [...] cholecystectomy Post-cholecystectomy syndrome Refills: 3 Pickup at [facility] Unchanged albuterol (ProAir HFA 90 mcg/ [...] fluticasone nasal (fluticasone 0.05 mg/ inh Nasal [place]) 2 Sprays Nasal Inhalation Every day Contact [...] or after (more content not included)...Normal [facility] HospitalGastroenterology Office/Clinic Noteon 08-05-2024 Gastroenterology Office/Clinic NoteGastroenterology Office/Clinic [...] Daily, # 30 EA, Refills(s) 3, Pharmacy: [facility], 158, cm, 08/05/24 14:23:00 EDT, Height/Length Dosing, 77.2, kg, 08/05/24 14:23:00 EDT, Weight Dosing 2. Hx of cholecystectomy, (Z90.49: Acquired absence of other specified parts of digestive tract)S/Pcholecystectomy Ordered: cholestyramine, = 1 packet(s), Oral, Daily, # 30 EA, Refills(s) 3, Pharmacy: [facility], 158, cm, 08/05/24 14:23:00 EDT, Height/Length Dosing, 77.2, kg, 08/05/24 14:23:00 EDT, Weight Dosing 3. Adverse reaction to NSAIDs (T39.395A: Adverse effect of other nonsteroidal anti-inflammatory drugs [NSAID], initial encounter) Ordered: cholestyramine, = 1 packet(s), Oral, Daily, # 30 EA, Refills(s) 3, Pharmacy: [facility], 158, cm, 08/05/24 14:23:00 EDT, Height/Length Dosing, 77.2, kg, 08/05/24 14:23:00 EDT, Weight Dosing 5. Post-cholecystectomy syndro (more content not included)...[facility] Hospital SouthComment on above:Result Comment: Electronically Signed By: Tho VILLEGAS, Del Duckworth\.br\Date and Time Signed: 08/05/2513:45 EDTReminderson 99-97-8141SbcsmufczHrhdsboji From: Pat Martinez MA To: [facility] - Reminders/Recalls; Sent: 08/05/2024 13:08:13 EDT Show up: 05/16/2029 13:08:00 EST Subject: Ambulatory Reminder Due Date/Time: 07/13/2029 13:08:00 EDT Reminder/Recall 5 year colon 07/13/24 Dr [facility]Mer[facility] HospitalANES POSTPROC EVALon 93-66-7611ITUJ POSTPROC EVALHNO ID: [id number] Author: LUZ ELENA FRANKLIN MD Service: ? [...] Scheduled Providers: Kasey Fallon MD; Rosaura Marie APRN.OPTICIAN APPRENTICE DISPENSING; Luz Elena Franklin MD Responsible Provider: Luz [...] July 13, 2024 TIME: 4:28 PM CSN: [id number] Medical Specialty [facility] PRE-OPon 14-37-4315JQWM PRE-OPHNO ID: [id number] Author: LUZ ELENA FRANKLIN MD Service: ? Author Type: Physician Type: Anesthesia Preprocedure Evaluation Filed: 07/13/2024 13:38 Note Text: ANESTHESIOLOGY DAY OF SURGERY NOTE : 1950 Procedure Information Date/Time: 07/13/24 1300 Scheduled providers: Kasey Fallon MD; Rosaura Marie APRN.OPTICIAN APPRENTICE DISPENSING; Luz Elena Franklin MD Procedure: ENTEROSCOPY Location: [...] ORAL) Take by mouth. vit A/vit C/biotin/zinc/copper (RMWB-SSCV-SHLV,VIT A,C-BIOTIN, ORAL) Take by mouth. aspirin 325 [...] (FLONASE) 50 mcg/actuation nasal spray Use 1 Camden in each nostril once daily. atorvastatin (LIPITOR) [...] 48 hours of Surgery/Pr (more content not included)...NormalUniversity Hospitals Ahuja Medical CenterEnteroscopy Study observation Narrativeon 55-49-1674Xgvthowwv ClinicRadiology Study observation (narrative)[facility] Medical CenterHISTORY PHYSICALon 39-62-4404QZRIPXZ PHYSICALHNO ID: [id number] Author: KASEY FALLON MD Service: Gastroenterology Author [...] ORAL) Take by mouth. vit A/vit C/biotin/zinc/copper (LKVR-RBXV-MSZN,VIT A,C-BIOTIN, ORAL) Take by mouth. aspirin 325 [...] (FLONASE) 50 mcg/actuation nasal spray Use 1 Camden in each nostril once daily. atorvastatin (LIPITOR) [...] PATIENT NAME: Munira Chester DATE: 07/13/2024 TIME: [facility]hillNURS PROGon [id number] PROG HNO ID: [id number] Author: LINDA ALVARADO RN Service: ? Author [...] REFERRAL (RECOMMENDATION): None Electronically Signed By: Hiro SilverioSelect Medical Specialty [facility] NURSING PRONO ID: [id number] Author: MARY CALLEJAS RN Service: ? Author [...] By: Mary Callejas RN In Department: GASTROENTEROLOGY NormalUniversity Hospitals Ahuja Medical CenterPathology biopsy report David (Tiss)on 07-13-2024 AP DISCLAIMERNoSelect Medical Specialty Hospital - Cleveland-FairhillComment on above:Order Comment: Specimen Type: TISSUE SPECIMENOrdering Facility: [facility] Address: [address] [place], [place] [address]Result Comment: Laboratory Developed Test (LDT) Disclaimer: Performance characteristics of immunohistochemical, immunofluorescent, and chromogenic in-situ hybridization tests have been determined by the performing laboratory within [facility]'s [facility] Pathology and Laboratory Medicine Department ([facility], [facility], [facility], [facility], [facility], [facility], or [facility]) in a manner consistent with CLIA requirements. One or more of these tests may not have been cleared or approved by the FDA. [facility] is regulated under CLIA as qualified to perform high- complexity testing. These tests are used for clinical purposes. These should not be regarded asinvestigational or for research. Positive and negative controls stain appropriately.Performed By: #### 59934-1 ####[facility] LABORATORYCLIA [id number] [address] LABCLIA [id number] [address]ETCASE REPORTNormalCUC Medical Center on above:Order Comment: Specimen Type: TISSUE SPECIMENOrdering Facility: [facility] Address: [address] [place], [place] [address]Result Comment: Surgical Pathology Report Case: [id number] Authorizing Provider: Kasey Fallon MD Collected: 07/13/2024 03:06 PM Ordering Location: Gastroenterology Received: 07/13/2024 06:18 PM Pathologist: Espinoza Sharp MD Specimens: A) - Small Bowel, Ileum, Biopsy, Mid ileal stricture B) - Small Bowel, Ileum, Biopsy, Distal ileal C) - Small Bowel, Terminal Ileum, Biopsy D) - Colon, Hepatic Flexure, PolypPerformed By: #### 34141-5 ####[facility] LABORATORYIA [id number] [address] LABCLIA [id number] [address]ETFINAL DIAGNOSISNormal [facility] on above:Order Comment: Specimen Type: TISSUE SPECIMENOrdering Facility: [facility] Address: [address] [place] [address]Uhnroh Comment: A. Mid ileal stricture, biopsy: - Small bowel mucosa with ulcer. - Negative for dysplasia or granulomas. B. Ileum, biopsy: - Small bowel mucosa with no significant pathologic changes. C. Terminal ileum, biopsy: - Small bowel mucosa with no significant pathologic changes. D. Hepatic flexure, polypectomy: - Fragments of tubular adenoma. at 1114 EDTPerformed By: #### 43976-9 ####[facility] LABORATORYCLIA [id number] [address] LABCLIA [id number] [address]ETFINNH PERFORMING LABNormalCUC Medical Center on above:Order Comment: Specimen Type: TISSUE SPECIMENOrdering Facility: [facility] Address: [address] [place] [address]Kkzicp Comment: Diagnostic interpretation performed at: [facility], [address] [address] CLIA# [id number] Hearing Aid Mechanic: LIZ Rodriguezerformed By: #### 63471-8 ####[facility] LABORATORYCLIA [id number] [address] LABCLIA [id number] [address]ETGROSS DESCRIPTION NormalEast [facility] Regional Hospital on above:Order Comment: Specimen Type: TISSUE SPECIMENOrdering Facility: [facility] Address: [address] [place], [place] [address]Result Comment: A. Small Bowel, Ileum, Biopsy Received [...] in one cassette. Gross examination performed at [facility], [facility] July 13, 2024 10:18 PMPerformed By: #### 59626-9 ####[facility]ORATORYCLIA [id number] [address] LABCLIA [id number] [facility] CLINICDESK [address]Ambulatory Visit Summaryon 72-73-2808Yjmqdoeiow Visit SummaryAmbulatory Visit Summary MUNIRA CHESTER :1950 [...] spray) fluticasone nasal (fluticasone 0.05 mg/inh Nasal [place]) fluticasone-vilanterol (Breo Ellipta 200 mcg-25 mcg/inh inhalation [...] Will Contact You Regarding These Appointments [facility] [place], Urology, Dr. Janae Caban at [facility], 07/08/24 9:53:00 EDT, Intrinsic sphincter deficiency [...] fluticasone nasal (fluticasone 0.05 mg/ inh Nasal [place]) 2 Sprays Nasal Inhalation Every day Contact [...] day Epigastric pain Ab (more content not included)...[facility] SouthUrology Office/Clinic Noteon 09-62-8646Fqzpcic Office/Clinic NoteUrology Office/Clinic Note Chief Complaint F/U with PVR HPI Staff 73 year old female patient here for 1 month follow up from [facility] 06/02/24 with PVR. Previous dx: mixed incontinence, [...] . -Refer to Dr. Janae Caban at [facility] for further w/up such as video [...] Refer to Dr. Janae Caban at [facility] Patient Education Urinary Incontinence I, Ailyn Aranda, personally scribed for Dr. Buchanan on 07/08/2024 09:53:11. . Documentation recorded by the scribe, Ailyn Aranda, accurately reflects the services(s) I performed and decisions made by me. Authenticated by Dr. Buchanan on 07/08/2024 10:36:35. Problem List/Past Medical History Ongoing Abdominal bloating Acute allergic rhinitis due to pollen Arthritis Asthma Asymptomatic m (more content not included)...[facility] Comment on above:Result Comment: Electronically Signed By: Asuncion Buchanan MD\.br\Date and Time Signed: 07/08/24 10:37EDT\.br\Electronically Co-Signed By: Ailyn Aranda\.br\Date and Time Co-Signed: 07/08/24 09:53 EDTNROSALINE PROG on 31-53-0210ATYYINS PROGHNO ID: [id number] Author: NOEMÍ WILLIAM, MARIA D Service: ? Author Type: Registered Nurse Type: Nursing Progress Note Filed: 07/06/2024 13:25 Note Text: Attempted to reach the patient at the contact number that they provided [phone] (home) [phone] (work) . Unable to speak with patient so without identifying the patient the following information was left on their voice mail: Date of procedure, location and report time Prep instructions A message was left informing the patient/patient telephone service representative they must have a responsible adult [...] Number to call with questions or concerns [phone] Number to call to cancel their procedure [phone] Noemí William RNNoSelect Medical Specialty Hospital [facility] Cleveland-FairhillCNPNon [phone] ([id number]) MUNIRA CHESTER ([id number]) 1950 F Date Time Provider Department 07/01/24 [...] Assessed Reason for Visit: Education Of Patient/family [754] Patient Question [7891] Cmt: Message sent to referring physician regarding [...] Take by mouth. - vit A/vit C/biotin/zinc/copper (KGTO-ZDMZ-ILFB,VIT A,C-BIOTIN, ORAL) Take by mouth. - aspirin [...] (FLONASE) 50 mcg/actuation nasal spray Use 1 Camden in each nostril once daily. - atorvastatin [...] [M*04/11/2016 Encounter Status:Closed by JACQUELINE HONG on 07/01/24[facility]Main OR Intraoperative Recordon [id number] OR Intraoperative Record Main OR Intraoperative Record IntraOp Document Type FT Summary Primary Physician: Asuncion Buchanan MD Finalized Date/Time: 06/03/24 11:56:15 Pt. Name: MUNIRA CHESTER/Sex: 1950 Female Med Rec #: [id number] Physician: Asuncion uBchanan MD Financial #: [id number] Pt. Type: A Room/Bed: [place] [address] Admit/Disch: 06/02/24 05:52:59 - 06/02/24 10:10:00 Institution: [...] Crews RN, Luz Elena Walden Role Performed OPTICIAN APPRENTICE DISPENSING Surgeon - Primary Night Clerk Auditor - Primary Time In 06/02/24 08:11:00 06/02/24 [...] 06/02/24 08:34:00 Procedure CYSTOSCOPY(.) Comments ALF LOPEZ, ASSISTANT PROFESSOR OF RADIOLOGY STUDENT FOLLOWING Last Modified By: Mars KILLIAN, [...] Yes Last Modified By: Mars KILLIAN, Luz Elean Walden 06/02/24 08:24:59 Post-Care Text: The patient [...] and tissue Entry 1 Skin Integrity Intact, Fords, Warm, & Skin Abnormality Yes Dry, Red [...] at Left Leg Posi (more content not included)...[facility] SouthDischarge Instructionson 06-02-2024 Discharge InstructionsDischarge Instructions MUNIRA CHESTER [...] spray) fluticasone nasal (fluticasone 0.05 mg/inh Nasal [place]) fluticasone-vilanterol (Breo Ellipta 200 mcg-25 mcg/inh inhalation [...] month for PVR Where: [address], [address] [address]- [phone] Business (1) Medications What How Much When Why Instructions Next Dose New cephalexin (Keflex 500 mg Cap) 1 Capsules By Mouth Every 12 hours Duration: 4 Days Post procedure Pickup at [facility] Unchanged albuterol (ProAir HFA 90 mcg/ [...] fluticasone nasal (fluticasone 0.05 mg/ inh Nasal [place]) 2 Sprays Nasal Inhalation Every day Unchanged [...] H/O gastric ulcer BMI 29.0-29.9,adult Pharmacy Information [facility]: [address] [place], [place] [phone] Test Results No qualifying data available. Allergies Bee Stings (SOB - Shortness of breath, Hives) amoxicillin (Rash) contrast media (iodine-based) (SOB - Shortness of breath, (more content not included)...[facility] SouthComment on above:Result Comment: Electronically Signed By: Aleyda KILLIAN, Roxanne Mitchell\.br\Date and Time Signed: 06/02/24 09:01 EDTInpatient Patient Summaryon [id number] Patient SummaryInpatient Patient Summary [address] [address] [facility] Clinical Discharge Instructions PERSON INFORMATION Name: MUNIRA CHESTER PHYSICIANS Admitting Physician: Asuncion Buchanan MD Attending Physician: Asuncion Buchanan MD PCP: ANDREA GOLDEN DO Discharge Diagnosis: Intrinsic sphincter deficiency (ISD) Comment: PATIENT EDUCATION INFORMATION Instructions: Dewayne Walker Post-Op Instructions (CUSTOM) Medication Leaflets: Follow up: With: Address: When: Asuncion Buchanan [address] [place] [address], [place] [address], [address] [phone] Business (1) Comments: Call to schedule your follow up in 1 month for PVR MEDICATION LIST New Medications [facility], [address] [place], [place] [phone], [phone] cephalexin (Keflex 500 mg Cap) 1 Capsules [...] day. fluticasone nasal (fluticasone 0.05 mg/inh Nasal Cam[place]) 2 Sprays Nasal Inhalation every day. fluticasone [...] Tablets By Mouth every day. Refills: 1. Comment:[facility] SouthMain OR PACU I Recordon 98-58-2319Tune OR PACU I RecordMain OR PACU I Record PACU Phase I Document Type FT Summary Primary Physician: Asuncion Buchanan MD Finalized Date/Time: 06/02/24 09:13:02 Pt. Name: MUNIRA CHESTER Aviva/Sex: 1950 Female Med Rec #: [id number] Physician: Asuncion Buchanan MD Financial #: [id number] Pt. Type: A Room/Bed: [place] [address] Admit/Disch: 06/02/24 05:52:59 - Institution: Case Times [...] Signatures Signed By: Shruthi Cabezas RN 06/02/24 09:13[facility] SouthMain OR PACU II Recordon 68-31-4286Jgxu OR PACU II RecordMain OR PACU II Record PACU Phase II Document Type FT Summary Primary Physician: Asuncion Buchanan MD Finalized Date/Time: 06/02/24 10:20:05 Pt. Name: MUNIRA CHESTER/Sex: 1950 Female Med Rec #: [id number] Physician: Asuncion Buchanan MD Financial #: [id number] Pt. Type: A Room/Bed: [place] [address] Admit/Disch: 06/02/24 05:52:59 - Institution: Case Times [...] Signatures Signed By: Roxanne Maynard RN 06/02/24 10:20[facility] SouthMain OR Preoperative Recordon 74-29-4611Adwa OR Preoperative RecordMain OR Preoperative Record PreOp Document Type FT Summary Primary Physician: Asuncion Buchanan MD Finalized Date/Time: 06/02/24 08:29:55 Pt. Name: CATHERINE MUNIRAERICK Chicas/Sex: 1950 Female Med Rec #: [id number] Physician: Asuncion Buchanan MD Financial #: [id number] Pt. Type: A Room/Bed: [place] [address] Admit/Disch: 06/02/24 05:52:59 - Institution: Case Times [...] Signed By: Luz Elena Crews RN 06/02/24 08:29[facility] Operative Reporton [id number] ReportOperative Report Patient: MUNIRA CHESTER Age: 73 years Sex: Female : 1950 Associated Diagnoses: None Author: Asuncion Buchanan MD Procedure Procedure Date: 06/02/2024. Confirmed: patient, procedure, site, safety procedures followed. Performed by: Asuncion Buchanan MD, anesthesiologist (Cyrus Cottrell CRNA). Type of procedure: Type of procedure: Cystoscopy, injection of urethral bulking agent (Bulkamid) CPT 61902. . 73-year-old female with a history of [...] and Plan Diagnosis Intrinsic sphincter deficiency (ISD) (WEV65-QF N36.42, Discharge, Medical). Diagnosis Intrinsic sphincter deficiency (ISD) (QON01-TS N36.42, Discharge, Medical). [facility] SouthComment on above:Result Comment: Electronically Signed By: Dewayne VILLEGAS, Asuncion Santos.melissa\Date and Time Signed: 06/02/24 08:46EDT Outpatient Surgery Discharge Instructionon 51-80-3132Saydwigqhi Surgery Discharge InstructionOutpatient Surgery Discharge Instruction [address] [address] Patient Discharge Instructions PERSON INFORMATION Name: MUNIRA [...] Follow up: With: Address: When: Asuncion Buchanan [address] [place] [phone] Business (1) Comments: Call to schedule your follow up in 1 month for PVR Pharmacy Information: You may receive a survey from [facility] asking you to rate your care experience. Your feedback is important and will help us understand what we do well and how we can improve the quality of care we provide to you, your loved ones and our community. It???s an honor to serve you. Thank you for choosing [facility] HERE ARE THE MEDICATION CHANGES THAT OCCURRED DURING YOUR HOSPITAL STAY New Medications [facility], [address] [place], [place] [id number], [phone] cephalexin (Keflex 500 mg Cap) 1 Capsules [...] day. fluticasone nasal (fluticasone 0.05 mg/inh Nasal [place]) 2 Sprays Nasal Inhalation every day. fluticasone [...] 1. PATIENT EDUCATION INFORMATION Instructions: [facility] [place], [place] Post-Operative Instructions for Bulkamid Congratulations on [...] and urethra following the procedure. (morecontent not included)...[facility] SouthC Urineon 60-00-7543Ttoxpzeg identified Cx Nom (U)Microbiology PROCEDURE: Urine Culture [R1] SOURCE: U CleanCatch BODY SITE: COLLECTED DATE/TIME: 05/20/2024 07:49 EST RECEIVED DATE/TIME: 05/20/2024 11:21 EST START DATE/TIME: 05/20/2024 11:21 EST FREE TEXT SOURCE: Dewayne VILLEGAS, Asuncion Buchanan MD, Asuncion London FINAL REPORTS Final Report [] Verified Date/Time: 05/22/2024 07:12 EST 6,000 cfu/ml Mixed skin contaminants Performing Locations R1: This test was performed at: [facility], [address] [place] [address], [address] , [place], EmmntpQpfkwrPremier Health Miami Valley Hospital SouthComment on above:Performed By: #### [id number] #### [facility] [address] [place], [place] [address]Wdlhnvjuv By: #### [id number] ####[facility] [address] [place], [place] [address]GVVAhr 91-77-2776RREMQvtbtllbl (GASTA5) MUNIRA CHESTER ([id number]) 1950 F Date Time Provider Department 05/22/24 [...] Fully Assessed Reason for Visit: Patient Question [8097] Prescriptions as of 05/25/2024 - amLODIPine (NORVASC) [...] Take by mouth. - vit A/vit C/biotin/zinc/copper (BBGR-UTFB-PYCX,VIT A,C-BIOTIN, ORAL) Take by mouth. - aspirin [...] (FLONASE) 50 mcg/actuation nasal spray Use 1 [place] in each nostril once daily. - atorvastatin [...] [M*04/11/2016 Encounter Status:Closed by HOLLIS MCKEON on 05/22/24[facility] with Cult Rflxon 08-39-3735Epsjkwnm Auto Ql (U)2+ /HPFAbnormalTraceKettering Health – Soin Medical CenterComment on above:Performed By: #### [id number] #### [facility] [address] [place], [place] [address]Swlhmihcc Ql (U)NegativeNormalNegativeKettering Health – Soin Medical CenterComment on above:Performed By: #### [id number] #### [facility] [address] [place], [place] [address]Oshyndp oxalate crystals Computer assisted Ql (U)Present AbnormalKettering Health – Soin Medical CenterComment on above:Performed By: #### [id number] #### [facility] [address] [place], [place] [address]Bcktpcb (U)TurbidAbnormalClearFisher [facility] Comment on above:Performed By: #### [id number] #### [facility] [address] [place], [place] [address]Ensos (U)YellowNormalYellowKettering Health – Soin Medical CenterComment on above:Result Comment: Microscopic readings are only performed on those samples that meet specific criteria set forth by [facility].Performed By: #### [id number] #### [facility] [address] [place], [place] [address]Zzengqrbeo cells.squamous Auto (Urine sed) [#/Area]0-2Invalid Interpretation CodeKettering Health – Soin Medical CenterComment on above:Performed By: #### [id number] #### [facility] [address] [place] [address]Gykbacd Ql (U)NegativeNormalNegWVUMedicine [facility] Hospital Comment on above:Performed By: #### [id number] #### [facility] [address] [place] [address] 94186Bdzpktnexq Auto test strip (U) [Mass/Vol]NegativeNormalNegative [facility] CenterComment on above:Performed By: #### [id number] #### [facility] [address] [place] [address] 92349Tosmaua casts LM Ql (Urine sed)8-84Kegtmwwj8-4Ongrti [facility] Pratt HospitalComment on above:Performed By: #### [id number] #### [facility] [address] [place] [address] 47307Cabjvhm Auto test strip Ql (U)NegativeNormalNegativeKettering Health – Soin Medical CenterComment on above:Performed By: #### [id number] #### [facility] [address] [place] [address] 47109Kxjcpbbkv esterase Auto test strip Ql (U)25 Rosemarie/uLNormal NegativeKettering Health – Soin Medical CenterComment on above:Performed By: #### [id number] #### [facility] [address] [place] [address] 44081Okeui Auto Ql (U)4+ CD:[id number] [facility] CenterComment on above:Performed By: #### [id number] #### [facility] [address] [place] [address] 16893Ldfmnxw Auto test strip Ql (U)NegativeNormalNegativeKettering Health – Soin Medical CenterComment on above:Performed By: #### [id number] #### Garay [facility] [address] [place] [address] 90679pM (U)5.5 [pH]Invalid Interpretation Code5.0-9.0[facility] CenterComment on above:Performed By: #### [id number] #### Garay [facility] [address] [place] [address] 69521Nsefnzg Ql (U)1+ mg/dLAbnormalNegWVUMedicine Barnesville HospitalComment on above:Performed By: #### [id number] #### [facility] [address] [place] [address] 15656Npedevxu gravity (U) [Rel density]1.034Invalid Interpretation Code1.005-1.030[facility] CenterComment on above:Performed By: #### [id number] #### [facility] [address] [place] [address] 08776Urykhvehknge (U) [Mass/Vol]2 mg/dLAbnormalNegWVUMedicine Barnesville HospitalComment on above:Performed By: #### [id number] #### [facility] [address] [place] [address] 55668KLD Auto (Urine sed) [#/Area]8-23Rmrcdjvr4-7Bqjges [facility] HospitalComment on above:Performed By: #### [id number] #### [facility] [address] [place] [address] 09346Ohzn of Urine collection methodClean CatchNormalKettering Health – Soin Medical CenterComment on above:Performed By: #### [id number] #### [facility] [address] [place] [address] 78107MCMGSMFWBBOlddldl By: SYSTEM SYSTEM on 15-31-3333Dnrclxzi Auto Ql (U)2+ /HPFInvalid Interpretation CodeTrace/HPFFTMC UA [...] that meet specific criteria set forth by [facility].Epithelial cells.squamous Auto (Urine sed) [#/Area]0-2 graded/HPFInvalid [...] UA Auto SSURINALYSISOrdered By: Lorin Marks on 50-33-5809FF Spec DescClean Catch (05/20/24 7:49 AM)[facility]A Auto SSAmbulatory Visit Summaryon 04-22-2024 Ambulatory [...] spray) fluticasone nasal (fluticasone 0.05 mg/inh Nasal [place]) fluticasone-vilanterol (Breo Ellipta 200 mcg-25 mcg/inh inhalation [...] fluticasone nasal (fluticasone 0.05 mg/ inh Nasal [place]) 2 Sprays Nasal Inhalation Every day Contact [...] day Contact prescribing ph (more content not included)...[facility] SouthUrology Office/Clinic Noteon 01-28-9270Fjnwhae Office/Clinic NoteUrology Office/Clinic Note Chief Complaint 2 nightmute path review HPI Staff 73yr old female [...] 4. Recurrent UTI (N (more content not included)...NormalKettering Health – Soin Medical CenterComment on above:Result Comment: Electronically Signed By: Asuncion Buchanan MD\.br\Date and Time Signed: 04/22/24 11:55EST\.br\Electronically Co-Signed By: Ailyn Aranda.br\Date and Time Co-Signed: 04/22/24 11:33 ESTSurgical Pathology Reporton [id number] Pathology Report[address] [place] [address]- Surgical Pathology Report Collected Date/Time: 04/07/2024 10:02 [...] recognition technology and might contain unintended computerized skip miner errors.[facility] SouthComment on above:Performed By: #### [id number] #### Jarrod [facility] [address] [place], [place] [address]Oyhl OR Intraoperative Recordon [id number] OR Intraoperative RecordMain OR Intraoperative Record IntraOp Document Type FT Summary Primary Physician: Asuncion Buchanan MD Finalized Date/Time: 04/08/24 08:33:19 Pt. Name: MUNIRA CHESTER D.O.B./Sex: 1950 Female Med Rec #: [id number] Physician: Asuncion Buchanan MD Financial #: [id number] Pt. Type: A Room/Bed: [facility] Admit/Disch: 04/07/24 07:20:36 - 04/07/24 [...] Calabrese Role Performed Anesthesiologist Surgeon - Primary Night Clerk Auditor - Primary Brim Flexer Time In 04/07/24 09:46:00 04/07/24 09:46:00 04/07/24 09:46:00 Time Out 04/07/24 10:20:00 04/07/24 10:16:00 04/07/24 10:20:00 Procedure CYSTOSCOPY TURB(.) CYSTOSCOPY TURB(.) CYSTOSCOPY TURB(.) Comments DR. CAMACHO SUPERVISING Last Modified By: Santy RN, Mary Madera RN, Mary Madera RN, Mary Calabrese 04/07/24 10:21:25 04/07/24 10:21:25 04/07/24 10:21:25 Entry 4 Entry 5 Case Attendee Sukhjinder RN, CNOR, Luci Valenzuela SENIOR INFORMATION DEVELOPER, Meeta Velazquez Role Performed Staff - Other Scrub - Primary Time In 04/07/24 09:46:00 04/07/24 09:46:00 Time Out 04/07/24 10:20:00 04/07/24 10:20:00 Procedure CYSTOSCOPY TURB(.) CYSTOSCOPY TURB(.) Comments MINDY HANNA STUDENT Last Modified By: Santy RN, Mary Madera RN, Mary Calabrese 04/07/24 10:21:25 04/07/24 10:21:25 General Comments: ehove records 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 MARIA D kaiserramp agent Protocols FT Pre-Care Text: Implements protective measures [...] [place], Mary Madera RN, Missler RN, CNOR, Lcui Velazquez, Nicolas NIETON, Meeta Ramos Time Out [...] and tissue Entry 1 Skin Integrity Intact, Fords, Warm, & Skin Abnormality No Dry Outcomes [...] Entry 1 Procedure CYST (more content not included)...[facility] Discharge Instructionson 79-12-9506Rcnpcrybr InstructionsDischarge Instructions MUNIRA CHESTER :1950 Visit Date:04/07/2024 [...] spray) fluticasone nasal (fluticasone 0.05 mg/inh Nasal [place]) fluticasone-vilanterol (Breo Ellipta 200 mcg-25 mcg/inh inhalation [...] VILLEGAS, Asuncion [place] Where: [facility] [address] [place] [address]- New Follow Up Appointments after Discharge Follow Up with Asuncion Buchanan When: Comments: Office to call to schedule your follow up: white removal and voiding trial in 1- 2 days once urine is clear. Follow up in 1-2 weeks for pathology review. Where: [facility], [address] [address] [phone] Business (1) Medications What How Much When Why Instructions Next Dose New ciprofloxacin (Cipro 500 mg Tab) 1 Tablets By Mouth Every 12 hours Duration: 1 Days Start morning of white removal in 1-2 days Pickup at [facility] New oxybutynin (oxybutynin 5 mg Tab) 1 Tablets By Mouth 3 times a day as needed for bladder spasms Pickup at [facility] Unchanged albuterol (ProAir HFA 90 [...] fluticasone nasal (fluticasone 0.05 mg/ inh Nasal [place]) 2 Sprays Nasal Inhalation Every day Unchanged [...] Mouth Every day Unch (more content not included)...[facility] SouthComment on above:Result Comment: Electronically Signed By: Nasrin Stacy RN\.melissa\Date and Time Signed: 04/07/24 10:41 ESTInpatient Patient Summaryon [id number] Patient SummaryInpatient Patient Summary [address] [address] [facility] Clinical Discharge Instructions PERSON INFORMATION Name: MUNIRA CHESTER [facility]#:[id number] PHYSICIANS Admitting Physician: Asuncion Buchanan MD Attending Physician: Asuncion Buchanan MD PCP: ANDREA GOLDEN DO Discharge Diagnosis: Urethral caruncle; Urethral tumor Comment: PATIENT EDUCATION INFORMATION Instructions: Cook - Post Op INstructions for Bladder Tumor, Bladder Biopsy (CUSTOM) Medication Leaflets: Follow up: With: Address: When: Asuncion Howardbharati [address] [place], [place] [address], [place] [address], [employer] [address] [address] [phone] Business (1) Comments: Office to call to schedule your follow up: white removal and voiding trial in 1- 2 days once urine is clear. Follow up in 1-2 weeks for pathology review. Type Location Start [facility] Office Visit [facility] Tariq 04/22/2024 10:45 AM 04/22/2024 11:00 AM Confirmed MEDICATION LIST New Medications [facility], [address] [place], [place] [phone], [phone] ciprofloxacin (Cipro 500 mg Tab) 1 Tablets [...] day. fluticasone nasal (fluticasone 0.05 mg/inh Nasal [place]) 2 Sprays Nasal Inhalation every day. fluticasone [...] Tablets By Mouth every day. Refills: 1. Comment:[facility] SouthMain OR PACU I Recordon [id number] OR PACU I RecordMain OR PACU I Record PACU Phase I Document Type FT Summary Primary Physician: Asuncion Buchanan MD Finalized Date/Time: 04/07/24 12:46:06 Pt. Name: MUNIRA CHESTER/Sex: 1950 Female Med Rec #: [id number] Physician: Asuncion Buchanan MD Financial #: [id number] Pt. Type: A Room/Bed: Admit/Disch: 04/07/24 07:20:36 [...] Signatures Signed By: Pam Harris RN 04/07/24 12:46[facility] SouthMain OR PACU II Recordon 56-30-9641Hcja OR PACU II RecordMain OR PACU II Record PACU Phase II Document Type FT Summary Primary Physician: Asuncion Buchanan MD Finalized Date/Time: 04/07/24 12:11:40 Pt. Name: MUNIRA CHESTER /Sex: 1950 Female Med Rec #: [id number] Physician: Asuncion Buchanan MD Financial #: [id number] Pt. Type: A Room/Bed: [facility] Admit/Disch: 04/07/24 07:20:36 - Institution: [...] Signatures Signed By: Nasrin Stacy RN 04/07/24 12:11[facility] SouthMain OR Preoperative Recordon [id number] OR Preoperative RecordMain OR Preoperative Record PreOp Document Type FT Summary Primary Physician: Asuncion Buchanan MD Finalized Date/Time: 04/07/24 10:06:13 Pt. Name: MUNIRA CHESTER /Sex: 1950 Female Med Rec #: [id number] Physician: Asuncion Buchanan MD Financial #: [id number] Pt. Type: A Room/Bed: [place] [address] Admit/Disch: 04/07/24 07:20:36 - Institution: Case Times [...] Signatures Signed By: Mary Madera RN 04/07/24 10:06[facility] SouthOperative Report on 75-64-1887Bypdsljwg ReportOperative Report Patient: MUNIRA CHESTER Age: 73 [...] We began the procedure using a 22.5 Japanese rigid cystoscope, 30 degree lens, and inserted [...] electrocautery was usedto achieve hemostasis. An 18 Japanese White catheter was inserted into the bladder [...] review.. Impression and Plan Diagnosis Urethral tumor ([id number]-YB D49.59, Discharge, Medical). Urethral caruncle (KKF26-XJ N36.2, Discharge, Medical). Diagnosis Urethral tumor (MGW58-LP D49.59, Discharge, Medical). Urethral caruncle (JHZ97-YI N36.2, Discharge, Medical).[facility] SouthComment on above:Result Comment: Electronically Signed By: Asuncion Buchanan MD\.br\Date and Time Signed: 04/07/24 10:46ESTOutpatient Surgery Discharge Instructionon 57-93-4686Upbimkiorg Surgery Discharge InstructionOutpatient Surgery Discharge Instruction [place] [id number] Patient Discharge Instructions PERSON INFORMATION Name: MUNIRA [...] Date Follow up: With: Address: When: Asuncion [address], [address], [facility] [place] [phone] Business (1) Comments: Office to call to schedule your follow up: white removal and voiding trial in 1- 2 days once urine is clear. Follow up in 1-2 weeks for pathology review. Type Location Start [facility] [place] [facility] Tariq 04/22/2024 10:45 AM 04/22/2024 [...] to serve you. Thank you for choosing [facility] HERE ARE THE MEDICATION CHANGES THAT OCCURRED DURING YOUR HOSPITAL STAY New Medications [facility], [address] [place], [place] [phone], [phone] ciprofloxacin (Cipro 500 mg Tab) 1 Tablets [...] day. fluticasone nasal (fluticasone 0.05 mg/inh Nasal [place]) 2 Sprays Nasal Inhalation every day. fluticasone [...] 1. PATIENT EDUCATION INFORMATION Instructions: [facility] [place], [place] Post-Operative Instructions *Even though there are no visible incisions, the urethra is quite raw on the inside and you need tofollow some instructions to minimize the risks of bleeding and disturbing the area over the next 4 weeks. *The catheter in the (more content not included)...[facility] SouthC Urineon 71-68-1825Htngnmei identified Cx Nom (U)Microbiology PROCEDURE: Urine Culture [R1] SOURCE: U CleanCatch BODY SITE: COLLECTED DATE/TIME: 03/24/2024 07:56 EST RECEIVED DATE/TIME: 03/24/2024 13:41 EST START DATE/TIME: 03/24/2024 13:41 EST FREE TEXT SOURCE: Dewayne VILLEGAS, Asuncion Buchanan MD, Asuncion [place] FINAL REPORTS Final Report [] Verified Date/Time: 03/26/2024 11:19 EST 3,000 cfu/ml Mixed skin contaminants Performing Locations R1: This test was performed at: [facility], [address] [place] [address], [id number] , [place], EtuypsItrhhjSelect Medical Specialty Hospital - Cincinnati NorthComment on above:Performed By: #### [id number] #### [facility] [address] [place] [address] 47420MP Chest 2 Viewson [id number] Chest 2 ViewsExam Date/Time: 03/24/2024 08:16 EST [...] Ka,r in mGy = n/a DAP = n/NormalKettering Health – Soin Medical CenterBMPon 79-42-5267Nuxjt gap [Moles/Vol]12 mmol/LNormal6-16[facility] CenterComment on above:Performed By: #### [id number] #### [facility] [address] [place], [place] [address]Fphdttg [Mass/Vol]9.2 mg/dLNormal8.9-11.1FTrinity Health System Twin City Medical CenterComment on above:Performed By: #### [id number] #### [facility] [address] [place], [place] [address]Gijidoxt [Moles/Vol]106 mmol/ACuqqms815-507VdfgxdKettering Health – Soin Medical CenterComment on above:Performed By: #### [id number] #### [facility] [address] [place], [place] [address]DQ1 [Moles/Vol]27 mmol/KOtvhha98-27AmeqweKettering Health – [facility]in Medical Center Comment on above:Performed By: #### [id number] #### [facility] [address] [place], [place] [address]Ugzbuikzbd [Mass/Vol]0.7 mg/dLNormal0.5-1.3FTrinity Health System Twin City Medical CenterComment on above:Performed By: #### [id number] #### [facility] [address] [place], [place] [address]Fewkujq [Mass/Vol]96 mg/vGMssavh95-847NxyjfnKettering Health – Soin Medical CenterComment on above:Performed By: #### [id number] #### [facility] [address] [place], [place] [address]Vwvhsdcpk [Moles/Vol]3.5 mmol/LNormal3.5-5.3FTrinity Health System Twin City Medical CenterComment on above:Performed By: #### [id number] #### [facility] [address] [place], [place] [address]Jisfdi [Moles/Vol]141 mmol/TCrmuce141-656BzpbrkKettering Health – Soin Medical CenterComment on above:Performed By: #### [id number] #### [facility] [address] [place], [place] [address]Qyln nitrogen [Mass/Vol]14 mg/dLNormal5-21[facility] CenterComment on above:Performed By: #### [id number] #### [facility] [address] [place] [address] 93159Xnpt nitrogen/Creatinine [Mass ratio]20 No DhkrrIkevlz16-13 [facility] CenterComment on above:Performed By: #### [id number] #### [facility] [address] [place] [address] 88010ZXL w/ Auto Diffon 53-83-4729Sqlkwfsxa/100 WBC (Bld)0.4 %Normal 0.0-2.0[facility] CenterComment on above:Performed By: #### [id number] #### [facility] [address] [place] [address] 636[address]Cmkkgpmyv/Leukocytes Auto (Bld) [Pure # fraction]0.0 E9/LNormal 0.0-0.2FTrinity Health System Twin City Medical CenterComment on above:Performed By: #### [id number] #### [facility] [address] [place] [address] 25[address]Hyabxrimrgm (Bld) [#/Vol]0.2 E9/LNormal0.0-0.5FTrinity Health System Twin City Medical CenterComment on above:Performed By: #### [id number] #### [facility] [address] [place] [address] 79253Cndgtzgcrjv/100 WBC (Bld)2.2 %Normal0.0-8.0[facility] CenterComment on above:Performed By: #### [id number] #### [facility] [address] [place] [address] 22[address]Fbfxidkwacy distribution width (RBC) [Ratio]14.6 %High10.9-14.2 [facility] CenterComment on above:Performed By: #### [id number] #### Garay [facility] [address] [place], [place] [address]Fxcaojqaup (Bld) [Volume fraction]36.8 %Ibbwwv74.0-46.0[facility] CenterComment on above:Performed By: #### [id number] #### Garay [facility] [address] [place] [address] 35738Armlkqnwuv (Bld) [Mass/Vol]12.8 g/oKUzsjdw31.0-16.0[facility] CenterComment on above:Performed By: #### [id number] #### [facility] [address] [place] [address] 41753Rwviapcvesq (Bld) [#/Vol]1.3 E9/LNormal1.0-4.0[facility] CenterComment on above:Performed By: #### [id number] #### [facility] [address] [place] [address] 00772Eoruxuqlrdk/100 WBC (Bld)12.1 %Low14.0-50.0[facility] CenterComment on above:Performed By: #### [id number] #### [facility] [address] [place] [address] 12447EXO (RBC) [Entitic mass]31.7 alZarrfk25.0-34.0[facility] CenterComment on above:Performed By: #### [id number] #### [facility] [address] [place] [address]29[address]YUJT (RBC) [Mass/Vol]34.7 g/qUZfwllt33.4-36.0[facility] CenterComment on above:Performed By: #### [id number] #### [facility] [address] [place] [address] 20025GNN (RBC) [Entitic vol]91.5 iOTmsvhx22.0-100.0[facility] CenterComment on above:Performed By: #### [id number] #### [facility] [address] [place], [place] [address]Tcuwcwyxn (Bld) [#/Vol]0.9 E9/LNormal0.2-1.0[facility] CenterComment on above:Performed By: #### [id number] #### [facility] [address] [place] [address]65[address]Oxibeoaxinu (Bld) [#/Vol]8.1 E9/LHigh2.0-7.5FTrinity Health System Twin City Medical CenterComment on above:Performed By: #### [id number] #### [facility] [address] [place] [address]Gajgqorwopx/100 WBC (Bld)76.6 %High36.0-75.0[facility] CenterComment on above:Performed By: #### [id number] #### [facility] [address] [place] [address] 59742Tyknyfvq mean volume (Bld) [Entitic vol]8.3 fLNormal6.4-10.8 [facility] CenterComment on above:Performed By: #### [id number] #### [facility] [address] [place] [address] 498[address]Svkbuftec (Bld) [#/Vol]336.0 E9/ESxmrea906.0-500.0[facility] CenterComment on above:Performed By: #### [id number] #### [facility] [address] [place] [address] 685[address]IQE (Bld) [#/Vol]4.0 E12/LLow4.3-5.9[facility] Comment on above:Performed By: #### [id number] #### [facility] [address] [place] [address] 223[address]WUR corrected for nucl RBC Auto (Bld) [#/Vol]10.6 E9/LNormal 4.0-11.0[facility] CenterComment on above:Performed By: #### [id number] #### [facility] [address] [place] [address] 03990OKRZFAKYPDshyvmy By: SYSTEM SYSTEM on 49-13-1237Ildll gap [Moles/Vol]12 mmol/LNormal6 - 16 mEq/LRemisol ChemCalcium [Mass/Vol]9.2 mg/dL Normal8.9 - 11.1 mg/dLRemisol ChemChloride [Moles/Vol]106 mmol/JVmdmrw262 - 111 mmol/LRemisol ChemCO2 [Moles/Vol]27 mmol/VOwhhmx61 - 31 mmol/LRemisol Chem Creatinine [Mass/Vol]0.7 mg/dLNormal0.5 - 1.3 mg/dLRemisol OexykEQG07 mL/min/1.73 p5Vzxjqf>=59mL/min/1.73 d9Ryixruc ChemGlucose [Mass/Vol]96 mg/dL Nsvpam08 - 199 mg/dLRemisol ChemPotassium [Moles/Vol]3.5 mmol/LNormal3.5 - 5.3 mmol/LRemisol ChemSodium [Moles/Vol]141 mmol/TNjjjoj467 - 145 mmol/LRemisol Chem Urea nitrogen [Mass/Vol]14 mg/dLNormal5 - 21 mg/dLRemisol ChemUrea nitrogen/Creatinine [Mass ratio]20 mg/miLbfslf67 - 20Remisol ChemCOAGULATION Ordered By: Crissy Brown on 08-44-8847rCXX Coag (PPP) [Time]32.8 xNrkthr17.1 - 36.5 second(s)[facility] Auto CoagComment on above:Interpretive Data: Parameter [...] same coagulation reagent and instrumentation as [facility]. Currently there are no coagulation studies available worldwide for children to 14 days, andno normal ranges. Heparin therapeutic range (represented by Anti-Factor Xa activity of 0.2 - 0.4 U/mL) corresponds to PTT of 56.6 - 109.0 sec.INR Coag (PPP) [Relative time]1.06 {INR}Invalid Interpretation CodeALLIANCEHEALTH [facility] Auto CoagComment on above:Interpretive Data: INR results are specifically intended to assess patients stabilized on long-term Anticoagulation therapy suggested INR s Less Intensive Anticoagulation 2.0 3.0 Conventional Range 3.0 4.5PT Coag (PPP) [Time]11.9 sNormal9.4 - 12.5 second(s) [facility] Auto CoagComment on above:Interpretive Data: 15 [...] same coagulation reagent and instrumentation as [facility]. Currently there are no coagulation studies available worldwide for children to 14 days, andno normal ranges.HEMATOLOGYOrdered By: SYSTEM SYSTEM on 90-28-4532Qugtdyfrz/100 WBC (Bld)0.4 %Normal0.0 - 2.0 %Remisol HemeBasophils/Leukocytes Auto (Bld) [Pure # fraction]0.0 E9/LNormal0.0 - 0.2 E9/LRemisol HemeEosinophils (Bld) [#/Vol]0.2 E9/LNormal0.0 - 0.5 E9/LRemisol HemeEosinophils/100 WBC (Bld)2.2 %Normal0.0 - 8.0 %Remisol HemeErythrocyte distribution width (RBC) [Ratio]14.6 %High10.9 - 14.2 %Remisol HemeHematocrit (Bld) [Volume fraction]36.8 %Yygafz40.0 - 46.0 % Remisol HemeHemoglobin (Bld) [Mass/Vol]12.8 g/fLSamvuw26.0 - 16.0 gm/dLRemisol HemeLymphocytes (Bld) [#/Vol]1.3 E9/LNormal1.0 - 4.0 E9/LRemisol Heme Lymphocytes/100 WBC (Bld)12.1 %Low14.0 - 50.0 %Remisol HemeMCH (RBC) [Entitic mass]31.7 yvZhncij37.0 - 34.0 pgRemisol HemeMCHC (RBC) [Mass/Vol]34.7 g/dLNormal 31.4 - 36.0 gm/dLRemisol HemeMCV (RBC) [Entitic vol]91.5 fYOxdfmd32.0 - 100.0 fL Remisol HemeMonocytes (Bld) [#/Vol]0.9 E9/LNormal0.2 - 1.0 E9/LRemisol Heme Monocytes/100 WBC (Bld)8.7 %Normal4.0 - 14.0 %Remisol HemeNeutrophils (Bld) [#/Vol]8.1 E9/LHigh2.0 - 7.5 E9/LRemisol HemeNeutrophils/100 WBC (Bld)76.6 %High 36.0 - 75.0 %Remisol HemePlatelet mean volume (Bld) [Entitic vol]8.3 fLNormal6.4 - 10.8 fLRemisol HemePlatelets (Bld) [#/Vol]336.0 E9/PBjtxhr637.0 - 500.0 E9/L Remisol HemeRBC (Bld) [#/Vol]4.0 E12/LLow4.3 - 5.9 E12/LRemisol HemeWBC corrected for nucl RBC Auto (Bld) [#/Vol]10.6 E9/LNormal4.0 - 11.0 E9/LRemisol HemePT & PTTon 29-52-3858nKMA Coag (PPP) [Time]32.8 second(s)Jkbndr47.1-36.5 [facility] CenterComment on above:Result Comment: Parameter 15 days - [...] same coagulation reagent and instrumentation as [facility]. Currently there are no coagulation studies available worldwide for children to 14 days, andno normal ranges. Heparin therapeutic range (represented by Anti-Factor Xa activity of 0.2 - 0.4 U/mL) corresponds to PTT of 56.6 - 109.0 sec.Performed By: #### [id number] #### Jarrod [facility] [address], [place] [address]TMA Coag (PPP) [Relative time]1.06 {INR}Invalid Interpretation CodeFisher [facility] Pratt HospitalComment on above:Result Comment: INR results are specifically intended to assess patients stabilized on long-term Anticoagulation therapy suggested INR???s ???Less Intensive Anticoagulation??? 2.0 ??? 3.0 Conventional Range 3.0 ??? 4.5Performed By: #### [id number] #### Garay [facility] [address], [place] [address]KM Coag (PPP) [Time]11.9 second(s)Normal9.4-12.5Fisher [facility] Pr[facility] HospitalComment on above:Result Comment: 15 days - 4 [...] same coagulation reagent and instrumentation [place] [facility] Currently there are no coagulation studies available worldwide for children to 14 days, andno normal ranges.Performed By: #### [id number] #### [facility] [address], [place] [address]DJ with Cult Rflxon 15-35-6728Gwgusbnk Auto Ql (U)TraceNormal TraceKettering Health – Soin Medical CenterComment on above:Performed By: #### [id number] #### [facility] [address], [place] [address]Uefitkdqo Ql (U)NegativeNormalNegativeKettering Health – Soin Medical CenterComment on above:Performed By: #### [id number] #### [facility] [address], [place] [address]Wpxpmjw (U)TurbidAbnormalClearFisher [facility] Comment on above:Performed By: #### [id number] #### [facility] [address], [place] [address]Dbexp (U)YellowNormalYellowKettering Health – Soin Medical CenterComment on above:Result Comment: Microscopic readings are only performed on those samples that meet specific criteria set forth by [facility].Performed By: #### [id number] #### [facility] [address], [place] [address]Qgtlkkwclf cells.squamous Auto (Urine sed) [#/Area]0-2Invalid Interpretation CodeKettering Health – Soin Medical CenterComment on above:Performed By: #### [id number] #### [facility] [address], [place] [address]Tjzsjtz Ql (U)NegativeNormalNegativeK[facility] Comment on above:Performed By: #### [id number] #### [facility] [address], [place] [address]Mweqvajbfs Auto test strip (U) [Mass/Vol]NegativeNormalNegative [facility] CenterComment on above:Performed By: #### [id number] #### Garay [facility] [address], [place] [address]Pqpislt casts LM Ql (Urine sed)5-7Okkfbx8-8RhyuanTrinity Health System Twin City Medical CenterComment on above:Performed By: #### [id number] #### Garay [facility] [address], [place] [address]Vyxnmbl Auto test strip Ql (U)NegativeNormalNegativeKettering Health – Soin Medical CenterComment on above:Performed By: #### [id number] #### Garay [facility] [address], [place] [address]Dmwdbkinb esterase Auto test strip Ql (U)25 Rosemarie/uLNormal NegativeKettering Health – Soin Medical CenterComment on above:Performed By: #### [id number] #### Garay [facility] [address], [place] [address]Ruvap Auto Ql (U)3+ CD:[id number] [facility] Medical CenterComment on above:Performed By: #### [id number] #### Garay [facility] [address], [place] [address]Dblxndj Auto test strip Ql (U)NegativeNormalNegativeK[facility] Health – So[facility] Medical CenterComment on above:Performed By: #### [id number] #### Garay [facility] [address], [place] [address]gK (U)5.5 [pH]Invalid Interpretation Code5.0-9.0[facility] CenterComment on above:Performed By: #### [id number] #### Garay [facility] [address] [place] [address], [place] [address]Tlbaglx Ql (U)1+ mg/dLAbnormalNegWVUMedicine Barnesville HospitalComment on above:Performed By: #### [id number] #### Garay [facility] [address], [place] [address]WBI Ql (U)80-94Agvbcsmn0-1VzrhuoTrinity Health System Twin City Medical CenterComment on above:Performed By: #### [id number] #### Jarrod [facility] [address] [place], [place] [address]Ouzlumjt gravity (U) [Rel density]1.039Invalid Interpretation Code1.005-1.030[facility] CenterComment on above:Performed By: #### [id number] #### Garay [facility] [address] [place] [address], [place] [address]Lhbpmgaixfnv (U) [Mass/Vol]NegativeNormalNegativeKettering Health – Soin Medical CenterComment on above:Performed By: #### [id number] #### [facility] [address] [place] [address]AYK Auto (Urine sed) [#/Area]6-81Emvblyui3-1Ocoqpo [facility] HospitalComment on above:Performed By: #### [id number] #### [facility] [address] [place] [address]Hxzk of Urine collection methodClean CatchNormalKettering Health – Soin Medical CenterComment on above:Performed By: #### [id number] #### [facility] [address] [place] [address]XMHANZOXFTSszzfns By: SYSTEM SYSTEM on 05-23-4660Keylmhpm Auto Ql (U)Trace /HPFNormalTrace/HPFALL[facility] [place] UA Auto SSBilirubin Ql (U)NegativeNormal Negativemg/dLALLIANCEHEALTH [place] [facility] [place] Auto SSClarity (U)Turbid *ABN* (03/24/24 7:56 AM)Invalid Interpretation CodeClearFTULSA ER & HOSPITAL [facility] [place] UA Auto SSColor (U)Yellow 1 (03/24/24 7:56 AM)NormalYellowALLIANCEHEALTH [facility] [place]A Auto SSComment on above:Interpretive Data: Microscopic readings are only performed on those samples that meet specific criteria set forth by [facility].Epithelial cells.squamous Auto (Urine sed) [#/Area]0-2 graded/HPFInvalid Interpretation CodeALLIANCEHEALTH [facility] [place] Auto SSGlucose Ql (U)NegativeNormalNegativemg/dLALLIANCEHEALTH [facility] [place] [facility] Auto SS Hemoglobin Auto test strip (U) [Mass/Vol]NegativeNormalNegativemg/dLALLIANCEHEALTH [facility] [place] Auto SSHyaline casts LM Ql (Urine sed)0-3 graded/LPFNormal0-3graded/LPFFTMC UA Auto SSKetones Auto test strip Ql (U)NegativeNormalNegativemg/dLFT UA Auto SS Leukocyte esterase Auto test strip Ql (U)25 Rosemarie/uL Rosemarie/uLNormalNegativeLeu/uL [facility] Auto SSMucus Auto Ql (U)3+ graded/LPFInvalid Interpretation Code Negativegraded/LPFFTMC UA Auto SSNitrite Auto test strip Ql (U)NegativeNormal Negativemg/dLALLIANCEHEALTH [place] [facility] [place] Auto SSpH (U)5.5 *NA* (03/24/24 7:56 AM)Invalid Interpretation Code5.0 - 9.0[facility] Auto SSProtein Ql (U)1+ mg/dLInvalid Interpretation CodeNegativemg/dLALL[facility]ANCEHEALTH [facility] [facility] [place] Auto SSRBC Ql (U)21- 30 graded/HPFInvalid Interpretation Code0-3graded/HPFALLIANCEHEALTH [place] [facility] [place] Auto SSSpecific gravity (U) [Rel density]1.039 *NA* (03/24/24 7:56 AM)Invalid Interpretation Code1.005 - 1.030[facility] Auto SS Urobilinogen (U) [Mass/Vol]NegativeNormalNegativemg/dLALLIANCEHEALTH [place] [facility] [place] Auto SSWBC Auto (Urine sed) [#/Area]6-15 graded/HPFInvalid Interpretation Code0-5graded/HPFALLIANCEHEALTH [place] [facility] [place] Auto SSURINALYSISOrdered By: Lorin Marks on 50-73-4171NS Spec DescClean Catch (03/24/24 7:56 AM)NormalALLIANCEHEALTH [place] [place] [facility] [place] Auto SSeGFRon 39-83-6780zUDO78 mL/min/1.73 m2 Normal>=59K[facility] Medical CenterComment on above:Performed By: #### [id number] #### Jarrod [facility] [address], [place] [address]Cwfne Cytology ([facility])on 54-29-6791Vowuqhogifp exam Cytology (U) [Interp]Diagnosis InfoInvalid Interpretation [facility] Comment on above:Result Comment: A:Urine,Urine:Post Cystoscopy Void Interpretation - A few clusters of urothelial cells with mild atypia; as post cystoscopy voided urine, low grade papillary urothelial neoplasm can not be excluded. Clinical correlation is indicated. Adequate cellularity for evaluation. CPT 51317 MicroScopic Description - Adequacy - Gross Description Site ID:A color Yellow fixative Alcohol Specimen designated Urine received in alcohol preservative and labeled with the patient???s name, consists of 90ml clear yellow fluid. Electronically signed by : on: 02/27/2024 13:00:36Performed By: #### [id number] #### [facility] [address] [place] [address]Vmwrhxfpi Patient Summaryon 62-85-8510Osnanlccl Patient Summary Inpatient Patient Summary [address] [address] Clinical Summary Person Information Name: MUNIRA CHESTER Age: 73 Years : 1950 Sex: Female PCP: ANDREA GOLDEN DO Marital Status: Race: White Ethnicity: Non- or Language: Latvian Visit Id: Visit Reason: MIXED INCONTINENCE Speciality: Acuity: Enc Type: Outpatient Med Service: Surgery Arrival: 02/24/2024 09:03:30 Discharge: Dispo Type: Address: [address] [place] [phone] Provider Notes: Diagnosis: Intrinsic sphincter deficiency (ISD); [...] day. fluticasone nasal (fluticasone 0.05 mg/inh Nasal [place]) 2 Sprays Nasal Inhalation every day. fluticasone [...] Education Information: EU - Cystoscopy Discharge Instructions (CUSTOM)[facility] Main OR Intraoperative Recordon 31-05-0027Sikc OR Intraoperative RecordMain OR Intraoperative Record IntraOp Document Type FTURO Summary Primary Physician: Asuncion Buchanan MD Finalized Date/Time: 02/24/24 10:21:12 Pt. Name: MUNIRA CHESTER/Sex: 1950 Female Med Rec #: [id number] Physician: Asuncion Buchanan MD Financial #: [id number] Pt. Type: O Room/Bed: / Admit/Disch: 02/24/24 [...] Kimberly A Role Performed Surgeon - Primary Night Clerk Auditor - Primary Scrub - Primary Time In [...] Libby Garcia 02/24/24 10:21 Libby Garcia 02/24/24 10:21[facility] OR Preoperative Recordon 05-60-9772Oqno OR Preoperative RecordMain OR Preoperative Record Holding Area Document Type FTURO Summary Primary Physician: Asuncion Buchanan MD Finalized Date/Time: 02/24/24 10:08:50 Pt. Name: MUNIRA CHESTER/Sex: 1950 Female Med Rec #: [id number] Physician: Asuncion Buchanan MD Financial #: [id number] Pt. Type: O Room/Bed: / Admit/Disch: 02/24/24 [...] Complaints of Pain: No Skin Integrity Intact, Fords, Warm, & Dry Vitals - EU Blood Pressure 151/84 Pulse 73 bpm Respirations 18 br/min SPO2 98 % Additional None RN Reviewed Yes Specimens Collected Last Modified By: Libby Garcia 02/24/24 10:08:49 Finalized By: Libby Garcia Document Signatures Signed By: Meeta Valenzuela LPN 02/24/24 09:32 Libby Garcia 02/24/24 10:08[facility] SouthOperative Reporton 47-28-2985Lrkaofaaj ReportOperative Report Patient: MUNIRA CHESTER Age: 73 years Sex: Female : 1950 Associated Diagnoses: None Author: Asuncion Buchanan MD Procedure Operative Information Details: Date/ Time: 02/24/2024 10:21:00. Pre-Op Dx: Mixed Urinary Incontinence - N39.46. 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 Anesthesia Type: Local. Procedure: [...] -Will schedule Bulkamid under anesthesia once biopsy results..[facility] SouthComment on above:Result Comment: Electronically Signed By: Asuncion Buchanan MD\.br\Date and Time Signed: 02/24/24 10:26ESTOutpatient Surgery Discharge Instructionon 91-44-4036Bpgzhtmzrf Surgery Discharge Instruction Outpatient Surgery Discharge Instruction [place] [id number] Patient Discharge Instructions PERSON INFORMATION Name: MUNIRA CHESTER Date of : 1950 Current Date: 02/24/2024 10:20:30 PHYSICIANS Admitting Physician: Asuncion Buchanan MD Comment: Discharge Diagnosis: Intrinsic sphincter deficiency (ISD); Mixed incontinence; Urethral caruncle; Urethral tumor UMNIRA CHESTER has been given the following list [...] Date You may receive a survey from [facility] asking you to rate your care experience. Your feedback is important and will help us understand what we do well and how we can improve the quality of care we provide to you, your loved ones and our community. It???s an honor to serve you. Thank you for choosing [facility] SouthUrine Cytology ([facility])on 89-81-1445KK Method of ExtractionPost Cysto VoidNoSelect Medical Specialty Hospital - Cincinnati NorthComment on above:Performed By: #### [id number] #### [facility] [address] [facility], [place] [address]LW Number of Vtzp9Zrinfpi Interpretation [facility] HealthComment on above:Performed By: #### [id number] #### [facility] [address] [facility], [place] [address]CS SpecimenUrineNoSelect Medical Specialty Hospital - Cincinnati NorthComment on above:Performed By: #### [id number] #### [facility] [address] [facility], [place] [address]YG Type of ServiceTechnical OnlyPremier Health Miami Valley Hospital SouthComment on above:Performed By: #### [id number] #### [facility] [address] [facility], [place] [address]Vbgqcgw Office/Clinic Noteon 04-34-8748Vvlqtxo Office/Clinic NoteUrology Office/Clinic Note Chief Complaint 1 [...] Macrobid after sex consiste (more content not included)...[facility] SouthComment on above:Result Comment: Electronically Signed By: Asuncion Buchanan MD.br\Date and Time Signed: 02/05/24 12:35EST\.br\Electronically Co-Signed By: Valdes, Aide E\.br\Date and Time Co-Signed: 02/05/24 11:50 [facility] Urineon 05-92-4517Iegkwvxq identified Cx Nom (U)Microbiology PROCEDURE: Urine Culture [R1] SOURCE: U CleanCatch BODY SITE: COLLECTED DATE/TIME: 12/27/2023 10:45 EDT RECEIVED DATE/TIME: 12/27/2023 18:04 EDT START DATE/TIME: 12/27/2023 18:04 EDT FREE TEXT SOURCE: Dewayne VILLEGAS, Asuncion Buchanan MD, Asuncion [place] FINAL REPORTS Final Report [] Verified Date/Time: 12/30/2023 11:59 EDT 400 cfu/ml Mixed skin contaminants Performing Locations R1: This test was performed at: [facility], [address] [place] [address], [address] [place] [address], OwcpruMewtlbPremier Health Miami Valley Hospital SouthComment on above:Performed By: #### [id number] #### [facility] [address] [place] [address]VSAAvx 95-12-4591NBDFRwuvyf Visit (GGENMN) MUNIRA CHESTER ([id number]) 1950 F Date Time Provider Department 12/27/23 [...] balloon enteroscopy Kasey Fallon MD 12/27/2023 Staff Grounds Manager [facility] , REFERRING PROVIDER: Jones Ace [address] [facility] [address] REASON FOR REFERRAL: Small bowel stricture HISTORY: [...] Inhale 1 Inhalation as instructed once daily. Xfukwcqnrz-Cztuhjngxdbqj-Psjl (FIORICET) 50-300-40 mg cap Take by mouth. EPINEPHrine (EPIPEN) 0.3 mg/0.3 mL auto-injector Inject 0.3 mg intramuscularly as needed. fluticasone (FLONASE) 50 mcg/actuation nasal spray Use 1 [place] in each nostril once daily. atorvastatin (LIPITOR) [...] DEGEN ESOPHAGEAL REFLUX HYPERTENSION (more content not included)...NormalCleveland Clinic South Pointe Hospital on 68-19-7987UMTVRfuleyoym (GASTA5) MUNIRA CHESTER ([id number]) 1950 F Date Time Provider Department 12/25/23 [...] or can cx. Call cell phone at [phone]. MARIA D Hilliard Ann, RN 12/26/2023 9:10 [...] Visit: Patient Question [1737] Prescriptions as of 12/26/2023 - fluticasone-vilanterol (BREO ELLIPTA) 100-25 mcg/dose inhaler Inhale 1 Inhalation as instructed once daily. - Cxzcwrwgrz-Pwyoxcotytbdf-Unbn (FIORICET) 50-300-40 mg cap Take by mouth. - EPINEPHrine (EPIPEN) 0.3 mg/0.3 mL auto-injector Inject 0.3 mg intramuscularly as needed. - fluticasone (FLONASE) 50 mcg/actuation nasal spray Use 1 [place] in each nostril once daily. - atorvastatin [...] [M*04/11/2016 Encounter Status:Closed by HOLLIS MCKEON on 12/25/23NoSelect Medical Specialty Hospital - [facility] RF Small bowel Views W contrast Rhys 65-01-1162UPSGYIHCVC: Slow transit. No dilated small bowel. No visualized stricture. Dishcloth Folder: PSCB Transcribe Date/Time: Dec 24 2023 3:37P Dictated by : HAYDEN REEVES MD This examination was interpreted and the report reviewed and electronically signed by: HAYDEN REEVES MD on Dec 24 2023 3:40PM [facility] DIVISION OF RADIOLOGY* * *Final Report* * [...] Contrast: ORAL: 855 ml of EZPAQUE RESULT: Candy Cooker Helper radiograph shows no dilated bowel loops. [...] area of narrowing identified. DIVISION OF RADIOLOGYProvider, [facility] [place] - 12/24/2023 * * *Final Report* * [...] Contrast: ORAL: 855 ml of EZPAQUE RESULT: Candy Cooker Helper radiograph shows no dilated bowel loops. [...] No dilated small bowel. No visualized stricture. Dishcloth Folder: [facility] Transcribe Date/Time: Dec 24 2023 3:37P Dictated by : HAYDEN REEVES MD This examination was interpreted and the report reviewed and electronically signed by: HAYDEN REEVES MD on Dec 24 2023 3:40PM EST [facility] CenterRadiology Study observation (narrative)[facility] Medical CenterRF Small bowel Views W contrast POOrdered By: [facility] Provider on 70-94-2587Xcxqzjsbw Clinic XR SMALL BOWEL SERIESon 70-56-8443NP SMALL BOWEL SERIES* * *Final Report* * [...] Contrast: ORAL: 855 ml of EZPAQUE RESULT: Candy Cooker Helper radiograph shows no dilated bowel loops. [...] No dilated small bowel. No visualized stricture. Dishcloth Folder: [facility] Transcribe Date/Time: Dec 24 2023 3:37P Dictated by : HAYDEN REEVES MD This examination was interpreted and the report reviewed and electronically signed by: HAYDEN REEVES MD on Dec 24 2023 3:40PM EST [id number] Medical Specialty Hospital - TrumbullPNelysia 94-81-7695OBFP Telephone (GASTA5) CATHERINEMUNIRA ([id number]) 1950 F Date Time Provider Department 12/04/23 [...] 1 Inhalation as instructed once daily. - Tgvddowrlb-Sfxoggtylqsho-Ltok (FIORICET) 50-300-40 mg cap Take by mouth. - EPINEPHrine (EPIPEN) 0.3 mg/0.3 mL auto-injector Inject 0.3 mg intramuscularly as needed. - fluticasone (FLONASE) 50 mcg/actuation nasal spray Use 1 [place] in each nostril once daily. - atorvastatin [...] [M*04/11/2016 Encounter Status:Closed by HOLLIS MCKEON on 12/04/23[facility] Basophils Auto (Bld) [#/Vol]on 81-63-2463Ldvgnmbgl (Bld) [#/Vol]Automated basophil count0.0-0.1FWood County HospitalBasophils/100 WBC Auto (Bld)on 30-18-4118Hrbdrlzrc/100 WBC (Bld)Automated basophil %0.2-2.0[facility] HospitalEosinophils/100 WBC Auto (Bld)on 11-22-2023 Eosinophils/100 WBC (Bld)Automated eosinophil %High0.9-7.0[facility] HospitalErythrocyte distribution width Auto (RBC) [Ratio]on 11-22-2023 Erythrocyte distribution width (RBC) [Ratio]Erythrocyte distribution width [Ratio] by Automated count11.0-15.0[facility] HospitalEstimated glomerular filtration rate (GFR) non- Americanon 22-35-5090NRD/1.73 sq M.predicted among non-blacks MDRD (S/P/Bld) [Vol rate/Area]Estimated glomerular filtration rate (GFR) non->=60[facility] Globulin Calc (S) [Mass/Vol]on 60-57-4219Uioazmmv (S) [Mass/Vol]Serum globulin measurement by calculation (mass/volume)[facility] Hematocrit Auto (Bld) [Volume fraction]on 84-21-0059Hhbzyijuum (Bld) [Volume fraction]Hematocrit [Volume Fraction] of Blood by Automated count36.0-48.0 [facility] HospitalHemoglobin [Mass/volume] in Bloodon 11-22-2023 Hemoglobin (Bld) [Mass/Vol]Hemoglobin [Mass/volume] in Blood12.0-16.0[facility] HospitalIron binding capacity [Mass/volume] in Serum or Plasmaon 83-44-6804Ltii binding capacity [Mass/Vol]Iron binding capacity [Mass/volume] in Serum or Wwqqcz912.0-450.0[facility] HospitalIron saturation [Mass Fraction] in Serum or Plasmaon 56-39-7586Nant saturation [Mass fraction] Iron saturation [Mass Fraction] in Serum or PlasmaOur Lady Of Mercy HospitalLaboratory - Chemistry and Chemistry - challengeon 97-67-6607Gdrkfga [Mass/Vol]3.7 g/dL3.4-5.0[facility] HospitalALP [Catalytic activity/Vol]80 U/I01-343JoifxwpitOur Lady Of Mercy HospitalALT [Catalytic activity/Vol]26 U/J74-08HtgyzgbonOur Lady Of Mercy HospitalAST [Catalytic activity/Vol]21 U/Y07-94InuoubnxjOur Lady Of Mercy HospitalBilirubin [Mass/Vol]0.5 mg/dL0.2-1.0[facility] HospitalCalcium [Mass/Vol]9.0 mg/dL 8.5-10.1FWood County HospitalChloride [Moles/Vol]104 mmol/L98-107 [facility] HospitalCO2 [Moles/Vol]29.7 mmol/L21.0-32.0[facility] HospitalCreatinine [Mass/Vol]0.85 mg/dL0.55-1.02[facility] HospitalFerritin [Mass/Vol]30.0 ng/mL8.0-252.0[facility] HospitalGFR/1.73 sq M.predicted MDRD (S/P/Bld) [Vol rate/Area] mL/min/{1.73_m2}>=60[facility] HospitalGlucose [Mass/Vol]103 mg/dL 74-106[facility] HospitalIron [Mass/Vol]71.0 ug/dL50.0-170.0 [facility] HospitalPotassium [Moles/Vol]3.6 mmol/L3.5-5.1FWood County HospitalProtein [Mass/Vol]6.6 g/dL6.4-8.2FAkron Children's Hospitalodium [Moles/Vol]143 mmol/M765-597RrwlzkcfjOur Lady Of Mercy HospitalUrea nitrogen [Mass/Vol]16.0 mg/dL7.0-18.0[facility] HospitalUrea nitrogen/Creatinine [Mass ratio]18.8 mg/mgOur Lady Of Mercy HospitalLaboratory - Hematology and Cell countson 51-04-3411Qzgloixj granulocytes/100 WBC (Bld)0.3 %0.0-0.5FWood County Hospital Leukocytes [#/volume] corrected for nucleated erythrocytes in Blood by Automated counon 29-50-3302AUB corrected for nucl RBC Auto (Bld) [#/Vol]Leukocytes [#/volume] corrected for nucleated erythrocytes in Blood by Automated coun 4.0-11.0[facility] HospitalLymphocytes Auto (Bld) [#/Vol]on 10-98-1455Xwrwtkasoto (Bld) [#/Vol]Lymphocytes [#/volume] in Blood by Automated count1.2-3.8[facility] HospitalLymphocytes/100 WBC Auto (Bld)on 84-01-4226Epwrorqxsha/100 WBC (Bld)Lymphocytes/100 leukocytes in Blood by Automated count20.5-60.0[facility] Auto (RBC) [Entitic mass]on 89-01-4967WZL (RBC) [Entitic mass]MCH [Entitic mass] by Automated count 26.7-34.0[facility] HospitalMCHC Auto (RBC) [Mass/Vol]on 62-69-7632ULSZ (RBC) [Mass/Vol]MCHC [Mass/volume] by Automated count29.9-35.2 [facility] HospitalMCV Auto (RBC) [Entitic vol]on 39-82-8467EGM (RBC) [Entitic vol]MCV [Entitic volume] by Automated count81.0-99.0[facility] HospitalMonocytes Auto (Bld) [#/Vol]on 06-80-3019Lensiluib (Bld) [#/Vol]Automated blood monocyte count0.3-0.8[facility] Monocytes/100 WBC Auto (Bld)on 64-97-3921Jsdodwrso/100 WBC (Bld)Automated monocyte %1.7-12.0[facility] HospitalNeutrophils Auto (Bld) [#/Vol]on 01-32-5528Hkfawtscjpb (Bld) [#/Vol]Neutrophils [#/volume] in Blood by Automated count1.4-6.5FWood County HospitalNeutrophils/100 WBC Auto (Bld)on 43-42-7693Nqqqfhkfloi/100 WBC (Bld)Automated neutrophil %43.0-75.0 [facility] HospitalNo Panel Informationon 80-98-2630Yquxjpnlnfr # (Auto)0.6 10 3/uL0.0-0.7FWood County HospitalImmature Granulocyte # (Auto)0.02 10 3/uL0.00-0.03[facility] HospitalPlatelet mean volume Auto (Bld) [Entitic vol]on 25-25-4582Lpghdnrw mean volume (Bld) [Entitic vol] Platelet mean volume [Entitic volume] in Blood by Automated count9.5-13.5 [facility] HospitalPlatelets Auto (Bld) [#/Vol]on 11-22-2023 Platelets (Bld) [#/Vol]Platelets [#/volume] in Blood by Automated -890 [facility] HospitalRBC Auto (Bld) [#/Vol]on 07-95-3936XJR (Bld) [#/Vol]Erythrocytes [#/volume] in Blood by Automated count4.20-5.40[facility] Campuserum or plasma albumin/globulin mass ratioon 11-22-2023 Albumin/Globulin [Mass ratio]Serum or plasma albumin/globulin mass ratio [facility] Campuserum or plasma anion gap determinationon 12-27-1594Ylvff gap [Moles/Vol]Serum or plasma anion gap determinationOur Lady Of Mercy HospitalCNPNon 79-71-1205QYESMgbbuhjkg (GASTA5) MUNIRA CHESTER ([id number]) 1950 F Date Time Provider Department 10/31/23 [...] Fully Assessed Reason for Visit: Patient Question [4197] Prescriptions as of 10/31/2023 - fluticasone-vilanterol (BREO ELLIPTA) 100-25 mcg/dose inhaler Inhale 1 Inhalation as instructed once daily. - Jjfwyakyej-Yyxybofjvahnj-Bzvc (FIORICET) 50-300-40 mg cap Take by mouth. - EPINEPHrine (EPIPEN) 0.3 mg/0.3 mL auto-injector Inject 0.3 mg intramuscularly as needed. - fluticasone (FLONASE) 50 mcg/actuation nasal spray Use 1 [place] in each nostril once daily. - atorvastatin [...] [M*04/11/2016 Encounter Status:Closed by REHANA HOANG on 10/31/23NoHighland District HospitalNehemias 22-56-9730ETWJKnlyjgcty (GASTA5) MUNIRA CHESTER ([id number]) 1950 F Date Time Provider Department 10/16/23 [facility] PROVIDER GASTA5 During your visit today, we recorded the following information about you: Hollis Mckeon, RN 10/16/2023 1:52 PM Signed Faxed referral received on 10/15/23 for pt sent from Dr. Ace from [facility] to attention Dr. Fallon, for pt for [...] 1 Inhalation as instructed once daily. - Ikoumqohyq-Dkptvydeikhrr-Dhpr (FIORICET) 50-300-40 mg cap Take by mouth. - EPINEPHrine (EPIPEN) 0.3 mg/0.3 mL auto-injector Inject 0.3 mg intramuscularly as needed. - fluticasone (FLONASE) 50 mcg/actuation nasal spray Use 1 [place] in each nostril once daily. - atorvastatin [...] [M*04/11/2016 Encounter Status:Closed by HOLLIS MCKEON on 10/16/23[facility] Physician Referralon [id number] Referral [id number]#1.00TIFSelect Medical Specialty Hospital - AkronTelephoneon [id number] Munira Chester 1950 F Date Provider Department Center 09/05/2023 [facility] No family history on fileNormalUniversity of North Central Surgical Center HospitalTelephoneon [id number] Lanny Chestermary 1950 F Date Provider Department [facility] No family history on fileNormalUniversity of North Central [facility] Center HospitalPhysician Referralon 99-84-4789Ddbwwgstb Referral [id number]#1.00TIFSelect Medical Specialty Hospital - AkronAmbulatory Visit Summaryon 52-11-7520Ilvykpuzby Visit Summary MUNIRA CHESTER :1950 Visit Date:08/15/2023 [...] Tab) fluticasone nasal (fluticasone 0.05 mg/inh Nasal [place]) fluticasone/umeclidinium/vilanterol (Trelegy Ellipta) iron polysaccharide (Ferrex-150) levothyroxine [...] VILLEGAS, Asuncion [place] [facility]Clinic Noteon 08-15-2023 Gastroenterology Office/Clinic NoteChief [...] History of Present Illness I have reviewed [facility] staff note, most recent labs and [...] EGD - Esophagogastroduodenoscopy (01/16/2015), (more content not included)...[facility] SouthComment on above:Result Comment: Electronically Signed By: Tho [...] Bravo Hurst DO Transcribed by: SAHIL Technologist: [facility], Radiologist, MD - 07/25/2023 Exam [...] MAXILLOFACIAL W/O CONTRASTOrdered By: Radiologist Radiology on 28-02-2327THVO [employer] Work Phone: cT Maxillofacial w/o Contraston 11-06-6322YZ Maxillofacial w/o ContrastExam Date/Time: 07/23/2023 07:58 EDT [...] Bravo Hurst DO Transcribed by: SAHIL Technologist: ElsySelect Medical Specialty Hospital - Cincinnati NorthCT MAXILLOFACIAL W/O CONTRASTon 18-95-3427Jhkdjtuam Study observation (narrative) NOM HealthcareConsent for Treatmenton 01-57-8258Rceunsm for Treatment [id number]#1.00TIFSelect Medical Specialty Hospital - AkronConsent for Procedure/Surgeryon 23-20-6117Jmhcpxm for Procedure/Surgery [id number]#1.00TIFSelect Medical Specialty Hospital - AkronNurse Consultation Noteon 78-92-4778Ysvqv Consultation NoteAssessment/Plan Patient tolerated the capsule and [...] Every other day fluticasone 0.05 mg/inh Nasal [place], 2 spray(s), Nasal, Daily Fosamax 70 mg [...] virus vaccine, inactivated 12/31/2022 Recorded SARS-CoV-2 (COVID-19) mRNAMUL.ORD![id number] 12/22/2021 Recorded influenza virus vaccine, inactivated 12/18/2021 [...] 01/04/2016 Recorded influenza virus vaccine, inactivated 01/04/2016 [facility] 1 Viewon 28-66-8318WO Abdomen 1 ViewExam Date/Time: 07/05/2023 12:19 EDT [...] in mGy = na DAP = naNormalFisher [facility] Pratt HospitalConsent for Treatmenton 07-05-2023 Consent for [id number]#1.00TIFFNormal Jarrod [facility] HospitalNurse Consultation Noteon 52-74-1248Piuvo Consultation NoteAssessment/Plan Patient tolerated swallowing the capsule. [...] Every other day fluticasone 0.05 mg/inh Nasal [place], 2 spray(s), Nasal, Daily Fosamax 70 mg [...] virus vaccine, inactivated 12/31/2022 Recorded SARS-CoV-2 (COVID-19) mRNAMUL.ORD![id number] 12/22/2021 Recorded influenza virus vaccine, inactivated 12/18/2021 [...] 01/04/2016 Recorded influenza virus vaccine, inactivated 01/04/2016 RecordedNoSelect Medical Specialty Hospital - Cincinnati NorthPhysician Orderon 90-51-4811Skwcbxoqq Order [id number]#1.00TIFFPremier Health Miami Valley Hospital SouthAlbumin [Mass/volume] in Serum or Plasmaon 37-18-4661Atoiuek [Mass/Vol]3.6 g/dL2.9-4.4FWood County HospitalIgA [Mass/volume] in Serum or Plasmaon 41-36-5721PrJ [Mass/Vol]83 mg/aM49-122QbzelgsolOur Lady Of Mercy Hospital IgE [Units/volume] in Serum or Plasmaon 33-01-8060SlP Qn119 [IU]/mL6-495 [facility] Mercy HospitalComment on above:Performed at: - [facility] [id number] Director: Chay Stewart MD, Phone: [phone] [Mass/volume] in Serum or Plasmaon 01-66-5299AbK [Mass/Vol]509 mg/fF974-8012YziopvrvxOur Lady Of Mercy HospitalIgM [Mass/volume] in Serum or Plasmaon 05-34-9353PhZ [Mass/Vol]51 mg/mF95-295HofviizajOur Lady Of Mercy HospitalImmunoglobulin light chains.kappa.free [Mass/volume] in Serumon 32-15-3255Gkqqxkbruplobn light chains.kappa.free (S) [Mass/Vol]12.1 mg/L3.3-19.4 [facility] Mercy HospitalImmunoglobulin light chains.kappa.free/Immunoglobulin light chains.lambda.free [Yony 07-02-2023 Immunoglobulin light chains.kappa.free/Immunoglobulin light chains.lambda.free (S) [Mass ratio]1.130.26-1.65Our [facility] Of Mercy HospitalComment on above: Performed at: [employer] [employer] [id number] Director: Bj Hair PhD, Phone: [phone] light chains.lambda.free [Mass/volume] in Serum or Plasmaon 78-10-0323Pjhgjgqseszvso light chains.lambda.free [Mass/Vol]10.7 mg/L5.7-26.3FWood County HospitalNo Panel Informationon 05-86-2854Bxwheno Electrophoresis M-SpikeNot Observed g/dLNot ObservedOur Lady Of Mercy HospitalProtein Electrophoresis NoteComment.[facility] Of Mercy HospitalComment on above: Protein electrophoresis scan will follow via computer,mail, or swimming pool attendant delivery. Protein [Mass/volume] in Serum or Plasmaon 33-60-0765Aegotns [Mass/Vol]6.1 g/dL 6.0-8.5FAkron Children's Hospitalerum globulin measurement (mass/volume) on 41-29-5264Bmvrkplf (S) [Mass/Vol]2.5 g/dL2.2-3.9[facility] Campuserum or plasma albumin/globulin mass ratioon 12-82-5447Ezworol/Globulin [Mass ratio]1.5 {ratio}0.7-1.7FAkron Children's Hospitalerum or plasma alpha 1 globulin measurement by electrophoresis (mass/volume)on 07-56-6111Eqmau 1 globulin Elph [Mass/Vol]0.2 g/dL0.0-0.4FAkron Children's Hospitalerum or plasma alpha 2 globulin measurement by electrophoresis (mass/volume)on 92-98-5118Dkqvn 2 globulin Elph [Mass/Vol]0.9 g/dL0.4-1.0[facility] Campuserum or plasma beta globulin measurement by electrophoresis (mass/volume)on 73-95-0304Akpa globulin Elph [Mass/Vol]0.9 g/dL0.7-1.3FAkron Children's Hospitalerum or plasma gamma globulin measurement by electrophoresis (mass/volume)on 14-38-2495Trjhn globulin Elph [Mass/Vol]0.5 g/dL 0.4-1.8[facility] Campuserum or plasma immunoelectrophoresis interpretationon 37-12-7389Jvxpaghsxtdvkc IEP [Interp]Comment.[facility] Of Mercy HospitalComment on above:No monoclonality detected.Basophils Auto (Bld) [#/Vol]on 54-59-8734Hewtdpmfp (Bld) [#/Vol]0.0 10 3/uL0.0-0.1FWood County HospitalBasophils/100 WBC Auto (Bld)on 69-04-5106Bubllrpyg/100 WBC (Bld) 0.2 %0.2-2.0[facility] HospitalEosinophils/100 WBC Auto (Bld)on 60-22-0583Wqibdqsjmma/100 WBC (Bld)0.2 %0.9-7.0[facility] Erythrocyte distribution width Auto (RBC) [Ratio]on 87-67-3376Dzrlnbusdqx distribution width (RBC) [Ratio]19.9 %11.0-15.0[facility] Hematocrit Auto (Bld) [Volume fraction]on 89-04-1743Zgbcywieou (Bld) [Volume fraction]36.9 %36.0-48.0[facility] HospitalHemoglobin [Mass/volume] in Bloodon 79-59-4015Mtxlrqmgpj (Bld) [Mass/Vol]12.0 g/dL12.0-16.0 [facility] HospitalIron binding capacity [Mass/volume] in Serum or Plasmaon 60-67-6165Albt binding capacity [Mass/Vol]279.0 ug/dL250.0-450.0 [facility] HospitalIron saturation [Mass Fraction] in Serum or Plasmaon 62-35-1453Zeaf saturation [Mass fraction]20.8 %[facility] HospitalLaboratory - Chemistry and Chemistry - challengeon 06-27-2023 Ferritin [Mass/Vol]110.0 ng/mL8.0-252.0[facility] HospitalIron [Mass/Vol]58.0 ug/dL50.0-170.0[facility] HospitalLaboratory - Hematology and Cell countson 20-56-2860Zgibqbxb granulocytes/100 WBC (Bld)1.4 % 0.0-0.5FWood County HospitalLeukocytes [#/volume] corrected for nucleated erythrocytes in Blood by Automated counon 97-66-7383RAB corrected for nucl RBC Auto (Bld) [#/Vol]11.8 10 3/uL4.0-11.0[facility] Lymphocytes Auto (Bld) [#/Vol]on 35-08-5043Tfbxolnsejy (Bld) [#/Vol]2.2 10 3/uL 1.2-3.8[facility] HospitalLymphocytes/100 WBC Auto (Bld)on 55-70-9488Czwcakwjqmw/100 WBC (Bld)18.3 %20.5-60.0[facility] HospitalH Auto (RBC) [Entitic mass]on 40-51-9795HPE (RBC) [Entitic mass]28.6 pg 26.7-34.0[facility] HospitalMCHC Auto (RBC) [Mass/Vol]on 50-23-1761JVRV (RBC) [Mass/Vol]32.5 g/dL29.9-35.2FWood County HospitalMCV Auto (RBC) [Entitic vol]on 53-48-2108JJC (RBC) [Entitic vol]87.9 fL 81.0-99.0[facility] HospitalMonocytes Auto (Bld) [#/Vol]on 23-99-9142Coisraixv (Bld) [#/Vol]1.4 10 3/uL0.3-0.8[facility] HospitalMonocytes/100 WBC Auto (Bld)on 01-02-6831Sdyftocdk/100 WBC (Bld)11.8 % 1.7-12.0[facility] HospitalNeutrophils Auto (Bld) [#/Vol]on 90-81-8805Sjwlpyttspd (Bld) [#/Vol]8.0 10 3/uL1.4-6.5FWood County HospitalNeutrophils/100 WBC Auto (Bld)on 14-20-6613Uaiemjvzfko/100 WBC (Bld)68.1 % 43.0-75.0[facility] HospitalNo Panel Informationon 06-27-2023 Eosinophils # (Auto)0.0 10 3/uL0.0-0.7FWood County HospitalImmature Granulocyte # (Auto)0.17 10 3/uL0.00-0.03[facility] Platelet mean volume Auto (Bld) [Entitic vol]on 60-46-2080Kymrynmv mean volume (Bld) [Entitic vol]9.7 fL9.5-13.5FWood County HospitalPlatelets Auto (Bld) [#/Vol]on 00-37-3391Arnaazuft (Bld) [#/Vol]378 10 3/oD487-505XcshckbggOur Lady Of Mercy HospitalRBC Auto (Bld) [#/Vol]on 07-56-8021WTF (Bld) [#/Vol]4.20 10 6/uL4.20-5.40[facility] HospitalGastroenterology Office/Clinic Noteon 59-15-9302Xjempodrpnllnmsl Office/Clinic NoteChief Complaint follow up to EGD/colon [...] Every other day fluticasone 0.05 mg/inh Nasal [place], 2 spray(s), Nasal, Daily Fosamax 70 mg Tab, 70 mg= 1 tab(s), Oral, qWeek levothyroxine 88 mcg (0.088 mg) Tab, 88 mcg= 1 tab(s), Oral, Daily Macrobid 100 mg Cap, 100 mg= 1 cap(s), Oral, As Directed, 3 refills, Not (more content not included)...[facility] SouthComment on above:Result Comment: Electronically Signed By: Tho VILLEGAS, Del Ledezma.melissa\Date and Time Signed: 05/30/2407:31 [...] (05/22/2023), Esophagogastroduodenoscopy (05/22/2023), Co (more content not included)...[facility] Hospital SouthComment on above:Result Comment: Electronically Signed By: Del Nettles MD\.br\Date and Time Signed: 05/30/2407:34 EDTIntraOperative Documentson 64-75-8957VihjjMmonssukr [id number]#1.00TIFFNoSelect Medical Specialty Hospital - Cincinnati NorthMain OR Intraoperative Recordon 14-91-5975Fibd OR Intraoperative RecordIntraOp Document Type FT Summary Primary Physician: Del Nettles MD Finalized Date/Time: 05/24/23 14:03:51 Pt. Name: MUNIRA CHESTER/Sex: 1950 Female Med Rec #: [id number] Physician: Del Nettles MD Financial #: [id number] Pt. 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 Recurrent UTI / SNOMED CT 576566790 / Confirmed Osteopenia of lumbar spine / SNOMED CT 468881012 / Confirmed Nocturia / SNOMED CT 691018768 / Confirmed Mild persistent asthma / SNOMED CT 2347039114 / Confirmed Migraine / SNOMED CT 85288998 / Confirmed Microscopic hematuria / SNOMED CT 574933598 / Confirmed Lumbar spondylosis / SNOMED CT 224991476 / Confirmed Mixed incontinence / SNOMED CT 19289839 / Confirmed Hypertension / SNOMED CT 0759142253 / Confirmed Hyperlipidemia / SNOMED CT 97770489 / Confirmed Personal history of colonic polyps / SNOMED CT 3226329759 / Confirmed History of gastric ulcer / SNOMED CT 093145119 / Confirmed H/O gastric ulcer / SNOMED CT 111097792 / Confirmed Graves disease / SNOMED CT 788309393 / Confirmed GERD (gastroesophageal reflux disease) / SNOMED CT 981003759 / Confirmed Incomplete bladder emptying / SNOMED CT 155625232 / Confirmed Epigastric pain / SNOMED CT 043292316 / Confirmed Chronic tension headache / SNOMED CT 858446542 / Confirmed Cervical spondylosis / SNOMED CT 0778324256 / Confirmed Bilateral cataracts / SNOMED CT 916690004 / Confirmed Benign essential hypertension / SNOMED CT 2809317 / Confirmed Hypothyroidism, acquired, autoimmune / SNOMED CT 382525221 / Confirmed Asymptomatic microscopic hematuria / SNOMED CT 8553670784 / Confirmed Asthma / SNOMED CT 642095119 / Confirmed Arthritis / SNOMED CT 2065710 / Confirmed Acute allergic rhinitis due to pollen / SNOMED CT 35123432 / Confirmed Abdominal bloating / SNOMED CT 052055707 / Confirmed Resolved: Reflux of urine / SNOMED CT 7412749050 Histories Procedure history: Colonoscopy (456002208) on 09/07/2019 at 69 Years. EGD - Esophagogastroduodenoscopy (5692695458) on 09/07/2019 at 69 Years. EGD - Esophagogastroduodenoscopy (2374710476) on 01/16/2015 at 64 Years. Colonoscopy (783445681) on 01/16/2015 at 64 Years. Comments: 08/31/2019 16:19 EDT - Tonie Barragan LPN normal EGD - Esophagogastroduodenoscopy (2902728181) on 08/17/2011 at 61 Years. EGD - Esophagogastroduodenoscopy (3951657699) on 05/17/2011 at 60 Years. Laparoscopic cholecystectomy (02217463) on 06/16/2010 at 59 Years. Colonoscopy (884355023) on 01/16/2010 at 59 Years. section (93084594). Rotator cuff repair (841120396). Tubal ligation (380453210). Cataracts (7352336019). Foot (83165300). Social History Social & Psychosocial Habits Alcohol [...] classification: Class II. Anesthetic Preoperative Plan: Anesthesia General.[facility] SouthComment on above:Result Comment: Electronically Signed By: Jay [...] Discharge when meets criteria ( To home ).[facility] Hospital SouthComment on above:Result Comment: Electronically Signed By: Jay Jay Valderrama Jr, DO\.br\Date and Time Signed: 05/24/23 13:53 ESTRAD - CT Reporton 62-61-6476LYS - CT Report [id number]#1.00TIFAlexandreaKettering Health – Soin Medical CenterRAD - CT [id number]#1.00TIFFAlexandrea Garay [facility] Pr[facility] HospitalConsenton 04-59-6765Efhtpcz [id number]#1.00TIFMitchMarietta Memorial HospitalDischarge Instructionson 29-36-1867Wpqjnymvq Instructions [id number]#1.00[facility] HospitalPostoperative Documentson 91-73-5256Tpqzupxgcrenj Documents [id number]#1.00[facility] HospitalColonoscopy Procedure Reporton 11-63-8317Ehyyzuiafzs Procedure Report Patient: MUNIRA CHESTER Age: 72 years Sex: Female : 1950 Associated Diagnoses: None Author: Tho VILLEGAS, Del Springer. Pre-Procedure Procedure Date 05/22/2023 08:47:00 . Procedure Type: Colonoscopy. Procedure provider me. Current history and physical Colonoscopy (088363060) on 09/07/2019 at 69 Years. EGD - Esophagogastroduodenoscopy (2824910244) on 09/07/2019 at 69 Years. EGD - Esophagogastroduodenoscopy (8013271993) on 01/16/2015 at 64 Years. Colonoscopy (939671920) on 01/16/2015 at 64 Years. Comments: 08/31/2019 16:19 EDT - Tonie Barragan LPN normal EGD - Esophagogastroduodenoscopy (9504832794) on 08/17/2011 at 61 Years. EGD - Esophagogastroduodenoscopy (9714025172) on 05/17/2011 at 60 Years. Laparoscopic cholecystectomy (39440543) on 06/16/2010 at 59 Years. Colonoscopy (661634596) on 01/16/2010 at 59 Years. section (). Rotator cuff repair (576994903). Tubal ligation (220514164). Cataracts (5920159579). Foot (16125920).. Past Medical History Resolved Reflux of urine (9013914498): Resolved.. Family History Rheumatoid arthritis Mother Primary malignant neoplasm of lung Mother Diabetes mellitus type 2 Father Primary malignant neoplasm of female breast Sister . Procedure History Colonoscopy (002011684) on 09/07/2019 at 69 Years. EGD - Esophagogastroduodenoscopy (5677245976) on 09/07/2019 at 69 Years. EGD - Esophagogastroduodenoscopy (3403026870) on 01/16/2015 at 64 Years. Colonoscopy (155560866) on 01/16/2015 at 64 Years. Comments: 08/31/2019 16:19 EDT - Tonie Barragan LPN normal EGD - Esophagogastroduodenoscopy (9405596594) on 08/17/2011 at 61 Years. EGD - Esophagogastroduodenoscopy (8536809234) on 05/17/2011 at 60 Years. Laparoscopic cholecystectomy (63231776) on 06/16/2010 at 59 Years. Colonoscopy (742411276) on 01/16/2010 at 59 Years. section (). Rotator cuff repair (062803757). Tubal ligation (825677291). Cataracts (3364854124). Foot (88774460).. Colorectal neoplasm risk assessment Average risk. Informed [...] infection., # 30 cap(s), Refills(s) 3, [facility], 02/20/23 8:48:00 EST, Height/Length Dosing, 68.5, kg,... Pantoprazole [address] Tab: 40 mg = 1 tab(s), Oral, Daily, # 90 tab(s), Refills(s) 1, Pharm[facility] [facility], 154.9, cm, 12/11/19 9:26:00 EDT, [...] of stomach acid fluticasone 0.05 mg/inh Nasal [place]: 2 spray(s), Nasal, Daily, Refill(s) 0 levothyroxine [...] procedure well. Findings Diverticul (more content not included)...[facility] Comment on above:Other Comment: Missing Attachment - attachment storage system not supported 5374850 Can be viewed in source systemMissing Attachment - attachment storage system not supported 1410510 Can be viewed insour systemMissing Attachment - attachment storage system not supported 7391201 Can be viewed in source systemMissing Attachment - attachment storage system not supported 3943825 Can be viewed in source systemMissing Attachment - attachment storage system not supported 7047141 Can be viewed in source systemMissing Attachment - attachment storage system not supported 6956961 Can be viewed in source systemMissing Attachment - attachment storage system not supported 2370146 Can be viewed in source systemMissing Attachment - attachment storage system not supported 8024715 Can be viewed in source systemConsent for Treatment on 32-82-6891Nxlngso for Treatment [id number]#1.00TIFFNoSelect Medical Specialty Hospital - Cincinnati NorthConsultation Noteon 28-12-5927Sssvnwobmjug NotePatient: MUNIRA CHESTER Age: 72 years Sex: [...] infection., # 30 cap(s), Refills(s) 3, [facility], cm, 02/20/23 8:48:00 EST, Height/Length Dosing, 68.5, kg,... Pantoprazole [address] Tab: 40 mg = 1 tab(s), Oral, Daily, # 90 tab(s), Refills(s) 1, Pharmacy: [facility] [facility], 154.9, cm, 12/11/19 9:26:00 EDT, [...] of stomach acid fluticasone 0.05 mg/inh Nasal [place]: 2 spray(s), Nasal, Daily, Refill(s) 0 levothyroxine [...] and Plan EGD: Diagnosis: Bile reflux gastritis (IBV08-ZH K29.60, Working, Medical). Course: Progressing as expected. Education and Follow-up: Counseled: Family. Notes: Continue current medication Follow-up pathology report. might benefit from CT enterography versus capsule endoscopy in the futureNoal [facility] Soin Medical CenterComment on above:Result Comment: Electronically Signed By: Tho VILLEGAS, Del Ledezma.br\Date and Time Signed: 05/21/2408:05 EST Other Comment: Missing Attachment - attachment storage system not supported 0771090 Can be viewed in source systemMissing Attachment - attachment storage system not supported 8181765 Can be viewed insource systemMissing Attachment - attachment storage system not supported 2394456 Can be viewed in source systemMissing Attachment - attachment storage system not supported 7705441 Can be viewed in source systemMissing Attachment - attachment storage system not supported 2812632 Can be viewed in source systemMissing Attachment - attachment storage system not supported 4009400 Can be viewed in source systemMissing Attachment - attachment storage system not supported 4006619 Can be viewed in source systemMissing Attachment - attachment storage system not supported 7967615 Can be viewed in source systemMissing Attachment - attachment storage system not supported 0346439 Can be viewed in sourcesystemMissing Attachment - attachment storage system not supported 0402844 Can be viewed in source s ystemMissing Attachment - attachment storage system not supported 0643034 Can be viewed in source systemConsultation NotePatient: MUNIRA CHESTER Age: 72 years Sex: Female : 1950 Associated Diagnoses: None Author: Tho VILLEGAS, Del Springer. Pre-Procedure Procedure Date 05/22/2023 08:47:00 . Procedure Type: Colonoscopy. Procedure provider me. Current history and physical Colonoscopy (390802716) on 09/07/2019 at 69 Years. EGD - Esophagogastroduodenoscopy (1715854665) on 09/07/2019 at 69 Years. EGD - Esophagogastroduodenoscopy (8867286658) on 01/16/2015 at 64 Years. Colonoscopy (837813113) on 01/16/2015 at 64 Years. Comments: 08/31/2019 16:19 EDT - Tonie Barragan LPN normal EGD - Esophagogastroduodenoscopy (8777015377) on 08/17/2011 at 61 Years. EGD - Esophagogastroduodenoscopy (0594033442) on 05/17/2011 at 60 Years. Laparoscopic cholecystectomy (68012479) on 06/16/2010 at 59 Years. Colonoscopy (197035246) on 01/16/2010 at 59 Years. section (22355705). Rotator cuff repair (025489116). Tubal ligation (792611022). Cataracts (7471654476). Foot (87695342).. Past Medical History Resolved Reflux of urine (9456593514): Resolved.. Family History Rheumatoid arthritis Mother Primary malignant neoplasm of lung Mother Diabetes mellitus type 2 Father Primary malignant neoplasm of female breast Sister . Procedure History Colonoscopy (203729393) on 09/07/2019 at 69 Years. EGD - Esophagogastroduodenoscopy ([id number]) on 09/07/2019 at 69 Years. EGD - Esophagogastroduodenoscopy ([id number]) on 01/16/2015 at 64 Years. Colonoscopy ([id number]) on 01/16/2015 at 64 Years. Comments: 08/31/2019 16:19 EDT - Tonie Barragan LPN normal EGD - Esophagogastroduodenoscopy ([id number]) on 08/17/2011 at 61 Years. EGD - Esophagogastroduodenoscopy ([id number]) on 05/17/2011 at 60 Years. Laparoscopic cholecystectomy (75540997) on 06/16/2010 at 59 Years. Colonoscopy (995772779) on 01/16/2010 at 59 Years. section (25468149). Rotator cuff repair (682415799). Tubal ligation (662636141). Cataracts (4264987325). Foot (92143054).. Colorectal neoplasm risk assessment Average risk. Informed [...] infection., # 30 cap(s), Refills(s) 3, [facility], 02/20/23 8:48:00 EST, Height/Length Dosing, 68.5, kg,... Pantoprazole [address] Tab: 40 mg = 1 tab(s), Oral, Daily, # 90 tab(s), Refills(s) 1, Pharmacy: [facility] [facility], 154.9, cm, 12/11/19 9:26:00 EDT, [...] of stomach acid fluticasone 0.05 mg/inh Nasal [place]: 2 spray(s), Nasal, Daily, Refill(s) 0 levothyroxine [...] the procedure well. Findings (more content not included)...[facility] SouthComment on above:Result Comment: Electronically Signed By: Del Nettles MD\.br\Date and Time Signed: 05/22/2407:51 EST errorOther Comment: Missing Attachment - attachment storage system not supported [id number] Can be viewed in source systemMissing Attachment - attachment storage system not supported [id number] Can be viewed insource systemMissing Attachment - attachment storage system not supported [id number] Can be viewed in source systemMissing Attachment - attachment storage system not supported [id number] Can be viewed in source systemMissing Attachment - attachment storage system not supported [id number] Can be viewed in source systemMissing Attachment - attachment storage system not supported 9110835 Can be viewed in source systemMissing Attachment - attachment storage system not supported 6531118 Can be viewed in source systemMissing Attachment - attachment storage system not supported [id number] Can be viewed in source systemDischarge Instructionson [...] Tab) fluticasone nasal (fluticasone 0.05 mg/inh Nasal [place]) fluticasone/umeclidinium/vilanterol (Trelegy Ellipta) iron polysaccharide (Ferrex-150) levothyroxine [...] Asuncion Buchanan MD [facility]:Result Comment: Electronically Signed By: [...] Tab) fluticasone nasal (fluticasone 0.05 mg/inh Nasal [place]) fluticasone/umeclidinium/vilanterol (Trelegy Ellipta) iron polysaccharide (Ferrex-150) levothyroxine [...] VILLEGAS, Asuncion [place] [facility] HospitalComment on above:Result Comment: Electronically Signed By: [...] infection., # 30 cap(s), Refills(s) 3, Pharmacy: [facility], 158, cm, 02/20/23 8:48:00 EST, Height/Length Dosing, 68.5, kg,... Pantoprazole [address] Tab: 40 mg = 1 tab(s), Oral, Daily, # 90 tab(s), Refills(s) 1, Pharmacy: [facility] [facility], 154.9, cm, 12/11/19 9:26:00 EDT, [...] of stomach acid fluticasone 0.05 mg/inh Nasal [place]: 2 spray(s), Nasal, Daily, Refill(s) 0 levothyroxine [...] and Plan EGD: Diagnosis: Bile reflux gastritis (WRV27-ZZ K29.60, Working, Medical). Course: Progressing as expected. Education and Follow-up: Counseled: Family. Notes: Continue current medication Follow-up pathology report.[facility] SouthComment on above: Other Comment: Missing Attachment - attachment storage system not supported [id number] Can be viewed in source systemMissing Attachment - attachment storage system not supported 8816583 Can be viewed insource systemMissing Attachment - attachment storage system not supported 1567324 Can be viewed in source systemMissing Attachment - attachment storage system not supported 8385242 Can be viewed in source systemMissing Attachment - attachment storage system not supported 1633926 Can be viewed in source systemMissing Attachment - attachment storage system not supported 7594848 Can be viewed in source systemMissing Attachment - attachment storage system not supported 9877036 Can be viewed in source systemMissing Attachment - attachment storage system not supported 1517562 Can be viewed in source systemMissing Attachment - attachment storage system not supported 6756144 Can be viewed in sourcesystemMissing Attachment - attachment storage system not supported 0223962 Can be viewed in source s ystemMissing Attachment - attachment storage system not supported 1021284 Can be viewed in source systemMain OR PACU I Recordon 61-44-8963Vhts OR PACU I Record PACU Phase I Document Type FT Summary Primary Physician: Del Nettles MD Finalized Date/Time: 05/22/23 09:41:42 Pt. Name: MUNIRA CHESTER/Sex: 1950 Female Med Rec #: [id number] Physician: Del Nettles MD Financial #: [id number] Pt. Type: O Room/Bed: / Admit/Disch: 05/22/23 [...] Signatures Signed By: Nat Rodriguez I 05/22/23 09:41[facility] SouthMain OR Preoperative Recordon 99-30-4705Rquh OR Preoperative RecordHolding Area Document Type FT Summary Primary Physician: Del Nettles MD Finalized Date/Time: 05/22/23 07:08:55 Pt. Name: MUNIRA CHESTER/Sex: 1950 Female Med Rec #: [id number] Physician: Del Nettles MD Financial #: [id number] Pt. Type: O Room/Bed: / Admit/Disch: 05/22/23 [...] Signatures Signed By: Neli Butler RN 05/22/23 07:08[facility] Recordon 72-53-7487Bauwqem Record [id number]#1.00TIFFMemorial Health [facility] [id number]#1.00TIFFNormal Garay [facility] HospitalPatient Education - Texton 68-91-1829Zoefrki Education - TextColonoscopy Care After Surgery Please read the instructions outlined below and refer to this sheet in the next few weeks. These discharge instructions provide you with general information on caring for yourself [facility] Your doctor may also give you specific [...] unsweetened, w/added ascorbic acid 1 cup 0.5 [place] 1 cup 0.7 Vegetables Cooked Green beans 1 cup 4.0 Carrots 1/2 cup sliced 2.3 Peas 1 cup 8.8 Potato (baked, with skin) 1 medium potato 3.8 Raw Martinez (with peel) 1 cucumber 1.5 Lettuce 1 [...] 8.7 Peanuts 1/2 cup 7.9 [facility]Date 2013. SEEK IMMEDIATE MEDIC (more content not included)...[facility] SouthConsent for Procedure/Surgeryon 00-06-4925Roiimka for Procedure/Surgery [id number]#1.00TIFFNoSelect Medical Specialty Hospital - Cincinnati NorthAmbulatory Visit Summaryon 20-15-5123Qiggqamhye Visit Summary MUNIRA CHESTER :1950 Visit Date:05/14/2023 [...] Tab) fluticasone nasal (fluticasone 0.05 mg/inh Nasal [place]) fluticasone/umeclidinium/vilanterol (Trelegy Ellipta 200 mcg-62.5 mcg-25 mcg/inh [...] VILLEGAS, Asuncion [place] Where[facility]Gastroenterology Office/Clinic Noteon 05-14-2023 Gastroenterology Office/Clinic NoteChief Complaint ref by [place]- [facility] Staff This is a 72 year old [...] Tab, Oral, BID fluticasone 0.05 mg/inh Nasal [place], 2 spray(s), Nasal, Daily Fosamax 70 mg [...] virus vaccine, inactivated 12/31/2022 Recorded SARS-CoV-2 (COVID-19) mRNAMUL.ORD![id number] 12/22/2021 Recorded influenza virus vaccine, inactivated 12/18/2021 Recorded SARS-CoV-2 (COVID-19) mRNA-1273 vaccine 07/04/2021 Recorded SARS-CoV-2 (COVID-19) mRNA-1273 vaccine 01/23/2021 Recorded influenza virus vaccine, inactivated 11/23/2020 Recorded SARS-CoV-2 (COVID-19) mRNA-1273 vaccine 06/02/2020 Recorded SARS-CoV-2 (COVID-19) mRNA-1273 vaccine 05/05/2020 Recorded SARS-CoV-2 (COVID-19) mRNA-1273 vaccine 2020 Recorded 3 shots to date infl (more content not included)...[facility] SouthComment on above:Result Comment: Electronically Signed By: Del [...] anemia was found to be low around Bessie time a new issue for her no [...] Tab, Oral, BID fluticasone 0.05 mg/inh Nasal [place], 2 spray(s), Nasal, Daily Fosamax 70 mg [...] Substance Abuse - Denies (more content not included)...[facility] SouthComment on above:Result Comment: Electronically Signed By: Tho VILLEGAS, Del Duckworth\.br\Date and Time Signed: 05/14/2412:07 ESTPhysician Referralon 18-17-8337Bwhiftakv [id number]#1.00TIFF [facility] SouthAmbulatory Visit Summaryon 49-47-1500Qupezkvrdg Visit Summary MUNIRA CHESTER :1950 Visit Date:02/20/2023 Ambulatory Visit Instructions Your Diagnosis Mixed incontinence Recurrent UTI Urethral caruncle Tests Performed Urnls Dip Stick Auto w/o Microscopy POC 56910 Your Care Team Attending Physician - Dewayne [...] Tab) fluticasone nasal (fluticasone 0.05 mg/inh Nasal [place]) fluticasone/umeclidinium/vilanterol (Trelegy Ellipta 200 mcg-62.5 mcg-25 mcg/inh [...] VILLEGAS, Asuncion [place] Where: [facility] Educationon 77-18-6977Oqyrxrr EducationObstetrics and Gynecology Pelvic Floor Dysfunction, Female [...] pelvic muscle tension or spasms. ? Take cfym-gpf-gpnvbbx and prescription medicines only as told by [...] a bowel movement i (more content not included)...[facility] SouthUrology Office/Clinic Noteon 63-24-0936Jjetpqd Office/Clinic NoteChief Complaint 1yr HPI Staff 1yr [...] Dewayne VILLEGAS, Asuncion [place], URL, [facility] [address] [address] [id number] Additional Instructions: 1 yr Patient Education Pelvic [...] headache Duodenal stricture Epigast (more content not included)...[facility] SouthComment on above:Result Comment: Electronically Signed By: Asuncion Buchanan MD\.br\Date and Time Signed: 02/20/23 18:21EST\.br\Electronically Co-Signed By: Kimmie Lemus\.br\Date and Time Co-Signed: 02/20/23 09:53 ESTPOINT OF CARE GLUCOSEon 63-20-2209Gwxixao [Mass/Vol]94 mg/jXSsslex76-702Hzn [facility] HospitalComment on above:Performed By: #### POCGLUC ####[facility] [address] [place], [place] [address]UaDr. Dwight MarioGlucose [Mass/Vol]106 mg/fJIxsqcd98-704 The [facility] HospitalComment on above:Performed By: #### POCGLUC ####[facility] [address] [place] [id number]. Dwight Mario Covid-19 PCR (CVDTBH)on 34-27-5357YJTA-CoV-2 (COVID-19) RNA GIOVANI+probe Ql (Unsp spec)Not detectedNormalNOT DETECTEDThe [facility] HospitalCommymichigan medical center alpena on above:Result Comment: This test is not yet approved or cleared by the [place] FDA. When there are no FDA-approved or cleared tests available, and other criteria are met, FDA can make tests available under an emergency access mechanism called an Emergency Use Authorization (EUA). The EUA for this test is supported by the Program Trainer of Health and Human Service's (HHS's) declaration [...] consistent with SARS-CoV-2.Performed By: #### CVDTBH #### [facility] [address] [address] [address] Dwight MarioPROF CHEM 8 (BAS METB)on 75-96-6683Zliqe gap [Moles/Vol]13.4 mmol/LNormalThe [facility] HospitalComment on above:Performed By: #### BMP #### [facility] [address] [place] [address] Dr. Dwight MarioCalcium [Mass/Vol]9.1 mg/dLNormal8.5-10.1The [facility] Comment on above:Performed By: #### BMP #### [facility] [address] [place] [address] Dr. Dwight MarioChloride [Moles/Vol]107 mmol/HIlgosn87-473Jag [facility] Comment on above:Performed By: #### BMP #### [facility] [address] [place] [address] Dr. Dwight MarioCO2 [Moles/Vol]26.5 mmol/WOocgcw76.0-32.0The [facility] Comment on above:Performed By: #### BMP #### [facility] [address] [place] [address] Dr. Dwight MarioCreatinine [Mass/Vol]0.76 mg/dLNormal0.55-1.02The [facility] HospitalComment on above:Performed By: #### BMP #### [facility] [address] [place] [address] Dr. Dwight PhillipGFR-AF MACEDONIAN>60Normal>=60The [facility] HospitalComment on above:Performed By: #### BMP #### [facility] [address] [place] [address] Dr. Dwight PhillipGFR-NON AF MACEDONIAN>60Normal>=60The [facility] HospitalComment on above:Performed By: #### BMP #### [facility] [address] [place] [address] Dr. Dwight MarioGlucose [Mass/Vol]108 mg/dLCritically vidg29-252Dys [facility] HospitalComment on above:Performed By: #### BMP #### [facility] [address] [place] [address] Dr. Dwight MarioPotassium [Moles/Vol]3.9 mmol/LNormal3.5-5.1The [facility] Comment on above:Performed By: #### BMP #### [facility] [address] [place] [address] Dr. Dwight Elliottdium [Moles/Vol]143 mmol/NWlyrqh937-259Rlx [facility] Comment on above:Performed By: #### BMP #### [facility] [address] [place] [address] Dr. Dwight MarioUrea nitrogen [Mass/Vol]25.0 mg/dLCritically high7.0-18.0[facility] HospitalComment on above:Performed By: #### BMP #### [facility] [address] [place] [address] Dr. Dwight Burciaga nitrogen/Creatinine [Mass ratio]32.9 mg/mgNormalThe [facility] HospitalComment on above:Performed By: #### BMP #### [facility] [address] [place] [address] Dr. Dwight Lewis AUTO DIFFon 13-86-5040SVIG #0.0 103/ulNormal0.0-0.1[facility] HospitalComment on above:Performed By: #### CBC #### [facility] [address] [place] [address] Dr. Dwight MarioBasophils/100 WBC (Bld)0.4 %Normal0.2-2.0[facility] Comment on above:Performed By: #### CBC #### [facility] [address] [place] [address] Dr. Dwight Kay #0.3 103/ulNormal0.0-0.7The [facility] HospitalComment on above: Performed By: #### CBC #### [facility] [address] [place] [address] Dr. Dwight Philliposinophils/100 WBC (Bld)2.8 %Normal0.9-7.0[facility] Comment on above:Performed By: #### CBC #### [facility] [address] [place] [address] Dr. Dwight Philliprythrocyte distribution width (RBC) [Ratio]14.0 %Gedsar33.0-15.0 The [facility] HospitalComment on above:Performed By: #### CBC #### [facility] [address] [place] [address] Dr. Dwight MarioHematocrit (Bld) [Volume fraction]38.3 %Tnvznj26.0-48.0The [facility] HospitalComment on above:Performed By: #### CBC #### [facility] [address] [place] [address] Dr. Dwight MarioHemoglobin (Bld) [Mass/Vol]12.6 g/mRVykszo20.0-16.0The [facility] HospitalComment on above:Performed By: #### CBC #### [facility] [address] [place] [address] Dr. Dwight Triplett #0.03 10e3/ulNormal0.00-0.03The [facility] HospitalComment on above:Performed By: #### CBC #### [facility] [address] [place] [address] Dr. Dwight Triplett %0.3 %Normal0.0-0.5The [facility] HospitalComment on above: Performed By: #### CBC #### [facility] [address] [place] [address] Dr. Dwight Ross #2.9 103/ulNormal1.2-3.8The [facility] HospitalComment on above:Performed By: #### CBC #### [facility] [address] [place] [address] Dr. Dwight Dowellhocytes/100 WBC (Bld)29.0 %Eiyqot96.5-60.0The [facility] HospitalComment on above:Performed By: #### CBC #### [facility] [address] [place] [address] Dr. Dwight WynnUAL DIFF REQNONormalThe [facility] HospitalComment on above: Performed By: #### CBC #### [facility] [address] [place] [address] Dr. Dwight Butler (RBC) [Entitic mass]30.3 wbSdcfwo58.7-34.0The [facility] HospitalComment on above:Performed By: #### CBC #### [facility] [address] [place] [address] Dr. Dwight Henry (RBC) [Mass/Vol]32.9 g/fRIxarcu24.9-35.2The [facility] HospitalComment on above:Performed By: #### CBC #### [facility] [address] [place] [address] Dr. Dwight Henry (RBC) [Entitic vol]92.1 jIGbsgwx99.0-99.0The [facility] HospitalComment on above:Performed By: #### CBC #### [facility] [address] [place] [address] Dr. Dwight Otero #0.8 103/ulNormal0.3-0.8The [facility] HospitalComment on above:Performed By: #### CBC #### [facility] [address] [place] [address] Dr. Dwight Butlerocytes/100 WBC (Bld)7.9 %Normal1.7-12.0The [facility] Comment on above:Performed By: #### CBC #### [facility] [address] [place] [address] Dr. Dwight Andres #5.9 103/ulNormal1.4-6.5The [facility] HospitalComment on above:Performed By: #### CBC #### [facility] [address] [place] [address] Dr. Dwight Floresutrophils/100 WBC (Bld)59.6 %Mgzxxe80.0-75.0The [facility] HospitalComment on above:Performed By: #### CBC #### [facility] [address] [place] [address] Dr. Dwight Ansarilet mean volume (Bld) [Entitic vol]9.4 fLCritically low 9.5-13.5The [facility] HospitalComment on above:Performed By: #### CBC #### [facility] [address] [address] [address] Dwight MarioPLT385 103/ecInthxp683-832Pjd [facility] HospitalComment on above: Performed By: #### CBC #### [facility] [address] [address] [address] Dwight MarioRBC4.16 106/ulCritically low4.20-5.40The [facility] HospitalComment on above:Performed By: #### CBC #### [facility] [address] [address] [address] Dwight MarioWBC10.0 103/ulNormal4.0-11.0The [facility] HospitalComment on above:Performed By: #### CBC #### [facility] [address] [place] [address] Dr. Dwight MarioLIPID PROFILEon 79-69-2595OLVM-HDL RATIO NORMSWright-Patterson Medical CenterComment on above:Result Comment: 3.3 - 4.4 LOW RISK 4.4 - 7.1 AVERAGE RISK 7.1 - 11.0 MODERATE RISK >11.0 HIGH RISKPerformed By: #### LIPID, BMP, ALT, TSH ####[facility] [address] [address]Dr. Dwight MarioCholesterol [Mass/Vol]184 mg/dLNormal<=200The [facility] HospitalComment on above:Performed By: #### LIPID, BMP, ALT, TSH ####[facility] [address] [place] [address]DrJose Mario Cholesterol in HDL [Mass/Vol]61 mg/dLCritically wsyg16-70Pde [facility] Comment on above:Performed By: #### LIPID, BMP, ALT, TSH ####[facility] [address] [place] [address]DrJose MarioCholesterol in LDL [Mass/Vol]96.0 mg/dLMercy Health Lorain HospitalComment on above:Performed By: #### LIPID, BMP, ALT, TSH ####[facility] [address] [place] [address]DrJose MarioCholesterol.total/Cholesterol in HDL [Mass ratio]3.0 {ratio}NormalCleveland Clinic [facility] General Lodi HospitalComment on above:Performed By: #### LIPID, BMP, ALT, TSH ####[facility] [address] [place] [address]Dr. Dwight ChangHDL NORMAL> or = 60 mg/dl - LOW CARDIOVASCULAR RISK <40 mg/dl - HIGH CARDIOVASCULAR RISKMercy Health Lorain HospitalComment on above:Performed By: #### LIPID, BMP, ALT, TSH ####[facility] [address] [place] [address]Dr. Yilan ChangLDL CALC NORMALSEE BELOWMercy Health Lorain HospitalComment on above:Result Comment: <100 mg/dl OPTIMAL 100 - 129 mg/dl NEAR OR ABOVE OPTIMAL 130 - 159 mg/dl BORDERLINE HIGH 160 - 189 mg/dl HIGH >190 mg/dl VERY HIGHPerformed By: #### LIPID, BMP, ALT, TSH ####[facility] [address] [place] [address]Dr. Dwight ChangTriglyceride [Mass/Vol]135 mg/dLNormal <=150[facility] HospitalComment on above:Performed By: #### LIPID, BMP, ALT, TSH ####[facility] [address] [place] [address]Dr. Dwight ChangVLDL CALC27.0 mg/dLMercy Health Lorain HospitalComment on above: Performed By: #### LIPID, BMP, ALT, TSH ####[facility] [address] [place] [address]Dr. Yilan ChangMG MAMM SCREEN 3D ALLEGRA CADon 30-16-5791KH MAMM SCREEN 3D ALLEGRA CADPatient: MUNIRA CHESTER Exam Date: 01/29/2022 : 1950 Gender:F Ordering : DR ANDREA GOLDEN D.O. Admission #: [id number] Family : DR. MADISON BURNS D.O. Order #: [id number] CLICK HERE TO VIEW EXAM RADIOLOGY REPORT [...] breast cancer at age 61. LOCATION: [facility] BREAST COMPOSITION: Scattered areas fibroglandular density. [...] by: Campos Erazo MD on 01/29/2022 at 15:25[facility] PROF CHEM 8 (BAS METB)on 87-39-2354Rqbea gap [Moles/Vol]9.7 mmol/LNormalCleveland Clinic Akron General Lodi HospitalComment on above:Performed By: #### LIPID, BMP, ALT, TSH ####[facility] [address] [address]Dr. Yilan ChangCalcium [Mass/Vol]8.9 mg/dLNormal8.5-10.1The [facility] HospitalComment on above:Performed By: #### LIPID, BMP, ALT, TSH ####[facility] [address] [place] [address]Dr. Yilan ChangChloride [Moles/Vol]105 mmol/FXzohjc29-776Ndy [facility] Centerment on above:Performed By: #### LIPID, BMP, ALT, TSH ####[facility] [address] [address]Dr. Yilan ChangCO2 [Moles/Vol]27.3 mmol/LNormal 21.0-32.0The [facility] HospitalComment on above:Performed By: #### LIPID, BMP, ALT, TSH ####[facility] [address] [place] [address]Dr. Yilan ChangCreatinine [Mass/Vol]0.80 mg/dLNormal0.55-1.02The [facility] HospitalComment on above:Performed By: #### LIPID, BMP, ALT, TSH ####[facility] [address] [place], [place] [address]Dr. Yilan ChangEGFR- AF MACEDONIAN>60Normal>=60The [facility] HospitalComment on above:Performed By: #### LIPID, BMP, ALT, TSH ####[facility] [address] [place], [place] [address]Dr. Yilan ChangEGFR-NON AF MACEDONIAN>60Normal>=60The [facility] on above:Performed By: #### LIPID, BMP, ALT, TSH ####[facility] [address] [place], [place] [address]Dr. Yilan ChangGlucose [Mass/Vol]107 mg/dLCritically cjyl01-678Gni [facility] Comment on above:Performed By: #### LIPID, BMP, ALT, TSH ####[facility] [address] [place], [place] [address]Dr. Yilan ChangPotassium [Moles/Vol]4.0 mmol/LNormal3.5-5.1The [facility] HospitalComment on above: Performed By: #### LIPID, BMP, ALT, TSH ####[facility] [address] [place], [place] [address]Dr. Yilan ChangSodium [Moles/Vol]138 mmol/L Deeihf023-714Ako [facility] Medical Centerment on above:Performed By: #### LIPID, BMP, ALT, TSH ####[facility] [address] [place], [place] [address]Dr. Yilan ChangUrea nitrogen [Mass/Vol]20.0 mg/dLCritically high 7.0-18.0The [facility] HospitalComment on above:Performed By: #### LIPID, BMP, ALT, TSH ####[facility] [address] [address]Dr. Dwight MarioUrea nitrogen/Creatinine [Mass ratio]25.0 mg/mgNormalThe [facility] HospitalComment on above:Performed By: #### LIPID, BMP, ALT, TSH ####[facility] [address] [address]Dr. Dwight CastroCandler County Hospital 77-56-6850EJV [Catalytic activity/Vol]26 U/CCeinig78-42Ygt [facility] HospitalComment on above:Performed By: #### LIPID, BMP, ALT, TSH ####[facility] [address] [place] [address]Dr. Dwight PierceHon 67-01-8898HVA8.901 uIU/mLCritically high0.358-3.740[facility] HospitalCommymichigan medical center [place]pena on above:Performed By: #### LIPID, BMP, ALT, TSH ####[facility] [address] [address]Dr. Dwight MarioMRI SHOULDER LT WO CONon 42-30-8651WTY SHOULDER LT WO CONEXAM: MRI SHOULDER LT [...] Electronically authenticated by: YOVANA COTTRELL Date: 2021-10-03 15:02[facility] Vital Signs Date TimeVital SignValuePerforming HajvxeauoNjzdhsvl04-02-6910 10:56-0500Body abscnl239.94 cmBenjamin Ball DO Work Phone: [facility]11-10-2025 10:56-0500 Body mass index (BMI) [Ratio]30.2 kg/i1Bzziovon Ball DO Work Phone: [facility]11-10-2025 10:56-0500 Body dokqyh82.57 kgBenjamin Ball DO Work Phone: [facility]10-13-2025 09:14-0400 Body mass index (BMI) [Ratio]31.28 kg/m2Charito Vasquez MD Work Phone: noms Boxibducir77-74-1222 09:14-0400Body gcsjug55.56 kgTomarco Vasquez MD Work Phone: [facility] Zvycktwjxn57-26-7040 09:52-0400Body ldzcit280.94 cmBenjamin Ball DO Work Phone: [phone]10-07-2025 09:52-0400 Body mass index (BMI) [Ratio]32.1 kg/a9Eyqmoqqy Ball DO Work Phone: [phone]77[facility]10-07-2025 09:52-0400 Body wacvzz52.11 kgBenjamin Ball DO Work Phone: [phone] [place], [place] 3262510-07-2025 09:52-0400 Diastolic blood mm[Hg]Andrea Ball DO Work Phone: [phone]10-07-2025 09:52-0400 Heart rate97 /minBenjamin Ball DO Work Phone: [phone]10-07-2025 09:52-0400 Respiratory rate12 /minBenjamin Ball DO Work Phone: [phone] [place], [place] 3271410-07-2025 09:52-0400 Systolic blood ozioywvz208 mm[Hg]Andrea Ball DO Work Phone: [phone] [place], [place] 3262505-21-2025 14:20-0400 Blood Pressure LocationMojovan Nettles [phone]-CpjdlMer[facility]05-21-2025 14:20-0400Diastolic blood gilsruxn77 mm[Hg]Del Nettles [phone]-ThnkrMercy Health [facility] Hospital05-21-2025 14:20-0400Heart rate82 /minAnumad Mojerelli [phone]-TewyfMercy Health West Hospital05-21-2025 14:20-0400Respiratory rate14 /minMohamad Mouchli [phone]-QgasqMercy Health West Hospital05-21-2025 14:20-0400Systolic blood qewcyfzo282 mm[Hg]Del Nettles [phone]-OvcjnMercy Health West Hospital04-28-2025 15:50-0400Diastolic blood sqlkbmpi80 mm[Hg]Ksaey Fallon MD Work Phone: [facility]04-28-2025 15:50-0400Heart rate68 /min Kasey Fallon MD Work Phone: [facility]04-28-2025 15:50-4421VgK0% (BldA) [Mass fraction]94 %Kasey Fallon MD Work Phone: [phone]04-28-2025 15:50-0400Systolic blood vauvqdea130 mm[Hg]Kasey Fallon MD Work Phone: [phone]04-28-2025 15:20-0400Body temperature 97.7 [degF]Kasey Fallon MD Work Phone: [phone]04-28-2025 15:20-0400Respiratory rate 18 /minSsalvador Fallon MD Work Phone: [phone]04-28-2025 12:52-0400Body uhxito944 cm Kasey Fallon MD Work Phone: [phone]04-28-2025 12:52-0400Body mass index (BMI) [Ratio]29.23 kg/w9OhwejstKasey Fallon MD Work Phone: [facility]04-28-2025 12:52-0400Body .84 kgKasey Fallon MD Work Phone: [phone]03-18-2025 10:08-0400Heart rate75 /min [facility]03-18-2025 10:08-3148TqT0% (BldA) [Mass fraction]97 %[facility]03-18-2025 10:08-0400 Diastolic blood pqsyofeg19 mm[Hg][facility]03-18-2025 10:08-0400Mean blood rvznrfay23 mm[Hg][facility]03-18-2025 10:08-0400 Systolic blood aefsrbmg386 mm[Hg]Asuncion Lue [address] [place], [place] 8931403-18-2025 09:13-0400Heart rate73 /minKathy Lue [address] [place], [place] 8931403-18-2025 09:13-5060RpL4% (BldA) [Mass fraction]95 %Asuncion Lue [address] [place], [place] 8931403-18-2025 09:13-0400 Diastolic blood jetfndza26 mm[Hg][facility]03-18-2025 09:13-0400Mean blood pfntdcal17 mm[Hg][facility]03-18-2025 09:13-0400 Systolic blood xidzdadh395 mm[Hg][facility]03-18-2025 09:03-0400Blood Pressure LocationKathy Lue [facility]03-18-2025 09:03-0400Body scwfudopshu06.7 [degF]Asuncion Lue [address] [place], [place] 8931403-18-2025 09:03-0400 Diastolic blood mm[Hg][facility]03-18-2025 09:03-0400Heart rate64 /minKathy Lue [address] [place], [place] 8931403-18-2025 09:03-0400Mean blood betsvimo22 mm[Hg]Asuncion Lue [address] [place], [place] 8931403-18-2025 09:03-0400 Respiratory rate16 /minKathy Lue [facility]03-18-2025 09:03-7556DqL4% (BldA) [Mass fraction]96 %[facility]03-18-2025 09:03-0400 Systolic blood xgkhyldk036 mm[Hg]Asuncion Lue [address] [place], [place] 8931403-18-2025 08:51-0400Blood Pressure LocationKathy Lue [address] [place], [place] 8931403-18-2025 08:51-0400Mean blood vixmlsrw63 mm[Hg][facility]03-18-2025 08:51-0400 Respiratory rate10 /minKathy Lue [facility]03-18-2025 08:46-0400Blood Pressure LocationKathy Lue [facility]03-18-2025 08:46-0400Mean blood mm[Hg][facility]03-18-2025 08:46-0400 Respiratory rate9 /minKathy Lue [address] [place], [place] 8931403-18-2025 08:36-0400Body pcuipusobze61.52 [degF]Asuncion Lue [address] [place], [place] 3268303-18-2025 08:30-0400 Respiratory rate17 /minKathy Lue [facility]03-18-2025 08:25-0400 Respiratory rate12 /minKathy Lue [facility]03-18-2025 08:20-0400 Respiratory rate20 /minKathy Lue [facility]03-18-2025 06:36-0400Mean blood vxuetxzy80 mm[Hg][facility]03-18-2025 06:36-0400Heart rate62 /minKathy Lue [facility]03-18-2025 06:35-0400Body dihyxnklbao14.7 [degF]Asuncion Lue [address] [place], [place] 8931403-05-2025 07:38-0500Blood Pressure LocationKathy Lue [address] [place], [place] 8931403-05-2025 07:38-0500 Diastolic blood qdoqrpau32 mm[Hg][facility]03-05-2025 07:38-0500Heart rate80 /minKathy Lue [facility]03-05-2025 07:38-0500Mean blood rvbdujjw02 mm[Hg][facility]03-05-2025 07:38-0500 Systolic blood aoquviuf132 mm[Hg][facility]03-05-2025 07:37-0500Heart rate78 /minKathy Lue [facility]03-05-2025 07:37-3870RiO5% (BldA) [Mass fraction]98 %[facility]03-05-2025 07:37-0500 Respiratory rate18 /minKathy Lue [facility]03-05-2025 07:36-0500Blood Pressure LocationKathy Lue [facility]03-05-2025 07:36-0500 Diastolic blood tcwyxduc13 mm[Hg][facility]03-05-2025 07:36-0500Mean blood jgcrlheq296 mm[Hg][facility]03-05-2025 07:36-0500 Systolic blood kcqpegmn447 mm[Hg][facility]02-13-2025 09:01-0500Body puiihl129.5 cmTraisa Vasquez MD Work Phone: [facility] CenterThwnbcrnoq55-38-0156 09:01-0500Body mass index (BMI) [Ratio]30 kg/m2Tomarco Vasquez MD Work Phone: [facility] CenterTmcjxlcnjh06-16-1394 09:01-0500Body hkameo58.39 kgTomarco Vasquez MD Work Phone: [facility] HospitalYowyvnsnnq61-91-3768 10:50-0500Blood Pressure LocationKathy Lue [facility]02-05-2025 10:50-0500Diastolic blood mm[Hg][facility]02-05-2025 10:50-0500Heart rate68 /minKathy Lue [facility]02-05-2025 10:50-0500Systolic blood hozcbvuo618 mm[Hg][facility]01-30-2025 10:59-0500Body mass index (BMI) [Ratio]30 kg/g1Delywvri Rinkes DO Work Phone: [facility] CenterFzzotwbmcu66-98-4195 10:59-0500Body grpoan36.39 kgKathleen Rinkes DO Work Phone: [facility] CenterAvakwhrcyl18-46-8551 10:59-0500Diastolic blood qgafzppx30 mm[Hg]Madison Rinkes DO Work Phone: [facility] CenterPkkivjlghp67-85-6439 10:59-0500Systolic blood feqwxbok412 mm[Hg]Madison Rinkes DO Work Phone: [phone]-[facility] CenterBoth[facility] CenterXbyzsloixe79-30-1941 12:01-0500Heart rate77 /min [facility]01-21-2025 12:01-5452BaA9% (BldA) [Mass fraction]95 %[facility]01-21-2025 12:01-0500 Diastolic blood slkzkqxa58 mm[Hg][facility]01-21-2025 12:01-0500Mean blood mm[Hg][facility]01-21-2025 12:01-0500 Systolic blood atmcohrb744 mm[Hg][facility]01-21-2025 12:01-0500 Respiratory rate16 /minKathy Lue [facility]01-21-2025 11:07-0500Heart rate64 /minKathy Lue [facility]01-21-2025 11:07-8791NlR1% (BldA) [Mass fraction]97 %[facility]01-21-2025 11:05-0500 Respiratory rate16 /minKathy Lue [facility]01-21-2025 11:05-0500 Diastolic blood vcoqvelk08 mm[Hg][facility]01-21-2025 11:05-0500Mean blood hbgfguex64 mm[Hg][facility]01-21-2025 11:05-0500 Systolic blood mm[Hg]Asuncion Lue [address] [place], [place] 8[address]01-21-2025 10:48-0500Body ipfxlxtcvrd61.7 [degF]Asuncion Lue [address] [place], [place] 8931401-21-2025 10:48-0500 Diastolic blood ihlkmruq73 mm[Hg][facility]01-21-2025 10:48-0500Heart rate63 /minKathy Lue [facility]01-21-2025 10:48-0500Mean blood zjpxtuwd249 mm[Hg][facility]01-21-2025 10:48-0500 Respiratory rate21 /minKathy Lue [facility]01-21-2025 10:48-8982WrO1% (BldA) [Mass fraction]97 %[facility]01-21-2025 10:48-0500 Systolic blood xjdyhper255 mm[Hg][facility]01-21-2025 10:35-0500Mean blood ynctgmzu05 mm[Hg][facility]01-21-2025 10:35-0500 Respiratory rate12 /minKathy Lue [address] [place], [place] 8931401-21-2025 10:30-0500Mean blood okavhcdh97 mm[Hg]Asuncion Lue [address] [place], [place] 8931401-21-2025 10:30-0500 Respiratory rate10 /minKathy Lue [address] [place], [place] 8931401-21-2025 10:23-0500Blood Pressure LocationKathy Lue [address] [place], [place] 8931401-21-2025 10:23-0500Body fskzfiwugot38.52 [degF]Asuncion Lue [address] [place], [place] 8931401-21-2025 10:15-0500 Respiratory rate3 /minKathy Lue [address] [place], [place] 8931401-21-2025 07:38-0500Mean blood mm[Hg]Asuncion Lue [address] [place], [place] 8931401-07-2025 07:32-0500Blood Pressure LocationKathy Lue [address] [place], [place] 8931401-07-2025 07:32-0500 Diastolic blood pidmqmhb25 mm[Hg]Asuncion Lue [address] [place], [place] 8931401-07-2025 07:32-0500Heart rate87 /minKathy Lue [facility]01-07-2025 07:32-0500Mean blood wacnxcxr494 mm[Hg]Asuncion Lue [address] [place], [place] 8931401-07-2025 07:32-0500 Systolic blood xvvousqo784 mm[Hg]Asuncion Lue [address] [place], [place] 3268301-07-2025 07:32-0500Heart rate85 /minKathy Lue [address] [place], [place] 8931401-07-2025 07:32-2064QcA4% (BldA) [Mass fraction]98 %[facility]01-07-2025 07:32-0500 Respiratory rate18 /minKathy Lue [facility]01-07-2025 07:32-0500Blood Pressure LocationKathy Lue [facility]01-07-2025 07:32-0500 Diastolic blood idbiwspr63 mm[Hg][facility]uncion L[facility]01-07-2025 07:32-0500Mean blood punbqlse21 mm[Hg][facility]01-07-2025 07:32-0500 Systolic blood ongmhkxl142 mm[Hg][facility]11-20-2024 11:04-0500Blood Pressure LocationKathy Lue [facility]11-20-2024 11:04-0500Diastolic blood danldcwx72 mm[Hg][facility]ion [facility]11-20-2024 11:04-0500Heart rate60 /minKathy Lue [facility]11-20-2024 11:04-0500Systolic blood rzjivmsl45 mm[Hg][facility]uncion Lue [facility]11-20-2024 08:33-0500Body egsabo470.94 cm[facility]11-[facility]-2024 08:33-0500Body mass index (BMI) [Ratio]31.6 kg/p1WbzzsmyhlOur Lady Of [facility]cy Hospital11-20-2024 08:33-0500Body vluqhh19.8 kgOur [facility]11-20-2024 08:33-0500Diastolic blood dyfegbwc93 mm[Hg][facility]11-20-2024 08:33-0500Heart rate73 /minOur [facility]11-20-2024 08:33-0500Respiratory rate12 /[facility]11-20-2024 08:33-0500Systolic blood mvnhxqyo017 mm[Hg][facility]10-11-2024 14:40-0400Body .5 cmSsalvador Fallon MD Work Phone: [facility]10-11-2024 14:40-0400Body mass index (BMI) [Ratio]30.36 kg/n4LapklikKasey Fallon MD Work Phone: [phone]10-11-2024 14:40-0400Body temperature 98.29 [degF]Kasey Fallon MD Work Phone: [phone]10-11-2024 14:40-0400Body .3 kgKasey Fallon MD Work Phone: [phone]10-11-2024 14:40-0400Diastolic blood hkqwiyvg96 mm[Hg]Kasey Fallon MD Work Phone: [phone]10-11-2024 14:40-0400Heart rate68 /min Kasey Fallon MD Work Phone: [phone]10-11-2024 14:40-0263TxP4% (BldA) [Mass fraction]95 %Kasey Fallon MD Work Phone: [phone]10-11-2024 14:40-0400Systolic blood vxsnmusp586 mm[Hg]Kasey Fallon MD Work Phone: [facility]06-29-2024 09:32-0400Body viamim961 cm Jhonny Maher MD Work Phone: [facility]06-29-2024 09:32-0400 Body mass index (BMI) [Ratio]28.71 kg/k7OgfncxlJhonny Maher MD Work Phone: [facility]06-29-2024 09:32-0400 Body okpnhr84.53 kgJhonny Maher MD Work Phone: [facility]06-04-2024 15:47-0400 Body qofbag879.94 cmOur [facility]06-04-2024 15:47-0400Body mass index (BMI) [Ratio]29.7 kg/a6SknnxqkwxOur Lady Of [facility]cy Hospital06-04-2024 15:47-0400Body sfoohbjgupu17.5 [degF][facility]06-04-2024 15:47-0400Body lgyyeu42.44 kgOur [facility]06-04-2024 15:47-0400Diastolic blood tmgzfagr55 mm[Hg][facility] 08-20-2023 15:47-0400Heart rate88 /[facility] 08-20-2023 15:47-0400Respiratory rate18 /[facility] 08-20-2023 15:47-2300YxN5% (BldA) [Mass fraction]94 %[facility]06-04-2024 15:47-0400Systolic blood mm[Hg][facility]05-30-2024 08:14-0400Blood Pressure Trino Nettles [phone]-JltqwMercy [facility]05-30-2024 08:14-0400Diastolic blood ocvoybyj91 mm[Hg]Del Nettles [phone]-DnylvMercy Health West Hospital05-30-2024 08:14-0400Heart rate80 /Otis Nettles [phone]-TibdzMercy Health West Hospital05-30-2024 08:14-0400Respiratory rate16 /Otis Nettles [phone]-FvrnrMercy Health West Hospital05-30-2024 08:14-0400Systolic blood kwkevwqm076 mm[Hg]Del Nettles [phone]-LplsrMercy Health West Hospital04-05-2024 14:42-0400Body balhiz273.94 cmOur [facility]04-05-2024 14:42-0400Body mass index (BMI) [Ratio]29.3 kg/x1LcmprqqgnOur Lady Of Mercy Hospital04-05-2024 14:42-0400Body ihfdue85.53 kgOur [facility] 06-21-2023 14:42-0400Diastolic blood fnxrnswy74 mm[Hg][facility]04-05-2024 14:42-0400Heart rate81 /[facility] 06-21-2023 14:42-0400Respiratory rate20 /[facility] 06-21-2023 14:42-3599MpL5% (BldA) [Mass fraction]98 %[facility]04-05-2024 14:42-0400Systolic blood rrusigna127 mm[Hg][facility]03-14-2024 08:08-0400Blood Pressure LocationDel Nettles [phone]-PgfpcMercy Health West Hospital03-14-2024 08:08-0400Diastolic blood pvsslyvp90 mm[Hg]Del Nettles [phone]-QeeyxMercy Health West Hospital03-14-2024 08:08-0400Heart rate80 /minDel Nettles [phone]-VbudjMercy Health West Hospital03-14-2024 08:08-0400Respiratory rate16 /minDel Nettles [phone]-ExgfeMercy Health West Hospital03-14-2024 08:08-0400Systolic blood svmfbivr092 mm[Hg]Del Nettles [phone]-GfwplMercy Health West Hospital03-06-2024 09:15-0500Diastolic blood tiymcqkb03 mm[Hg]Mohliud Antonuchli [address] [place], [place] 0411003-06-2024 09:15-0500Heart rate62 /minMohamad Mouchli [address] [place], [place] 0411003-06-2024 09:15-0500Mean blood jcsabuqu39 mm[Hg]Mohliud Antonuchli [address] [place], [place] 0411003-06-2024 09:15-0500 Respiratory rate19 /minMohamad Mouchli [address] [place], [place] 0411003-06-2024 09:15-1198OqW8% (BldA) [Mass fraction]96 %Mohkp Waltonuchli [address] [place], [place] 0411003-06-2024 09:15-0500 Systolic blood kgmoctxz328 mm[Hg]Del Espinosali [address] [place], [place] 0411003-06-2024 09:05-0500 Diastolic blood aryutied13 mm[Hg]Mohamad Antonuchli [address] [place], [place] 0411003-06-2024 09:05-0500Heart rate65 /minMohamad Mouchli [address] [place], [place] 7854103-06-2024 09:05-0500Mean blood grdurprm51 mm[Hg]Haid Antonuchli [address] [place], [place] 0411003-06-2024 09:05-0500 Respiratory rate10 /minMohamad Mouchli [address] [place], [place] 0411003-06-2024 09:05-9132ZhD4% (BldA) [Mass fraction]95 %Mohamad Mouchli [address] [place], [place] 0411003-06-2024 09:05-0500 Systolic blood zykixptc428 mm[Hg]Mohliud Mouchli [address] [place], [place] 0411003-06-2024 09:00-0500 Diastolic blood waljutaj66 mm[Hg]Mohamad Mouchli [address] [place], [place] 0411003-06-2024 09:00-0500Heart rate66 /minMohamad Mouchli [address] [place], [place] 7854103-06-2024 09:00-0500 Respiratory rate15 /minMohamad Mouchli [address] [place], [place] 0411003-06-2024 09:00-7247DhA2% (BldA) [Mass fraction]99 %Hairichard Mouchli [address] [place], [place] 0411003-06-2024 09:00-0500 Systolic blood xxkfkaul447 mm[Hg]Haid Mouchli [address] [place], [place] 0411003-06-2024 08:50-0500Body bngwmibgwxr66.52 [degF]Lucieamad Mouchli [address] [place], [place] 0411003-06-2024 08:45-0500 Respiratory rate24 /minMohamad Mouchli [address] [place], [place] 0411003-06-2024 08:40-0500 Respiratory rate24 /minMohamad Mouchli [address] [place], [place] 7854103-06-2024 08:35-0500 Respiratory rate22 /minMohamad Mouchli [address] [place], [place] 0411003-06-2024 07:14-0500Blood Pressure LocationMohamad Mouchli [address] [place], [place] 0411003-06-2024 07:14-0500Body rhaksgmmvlm66.88 [degF]Lucieamad Antonuchli [address] [place], [place] 0411002-27-2024 12:52-0500Blood Pressure LocationMohamad Mouchli [phone]-KtwtvMercy Health [facility] Hospital02-27-2024 12:52-0500Diastolic blood uhcwlffu26 mm[Hg]Mohamad Mouchli [phone]-GnaobMercy Health West Hospital02-27-2024 12:52-0500Heart rate89 /minMohamad Mouchli [phone]-PexuoMercy Health West Hospital02-27-2024 12:52-0500Respiratory rate16 /minMohamad Mouchli [phone]-WtpyqMercy Health West Hospital02-27-2024 12:52-0500Systolic blood bqpgnxiv922 mm[Hg]Haid Antonuchli [phone]-KrnxhMercy Health West Hospital01-30-2024 09:00-0500Body bibkxe746.94 cmBenjamin Ball Other [facility]01-30-2024 09:00-0500 Body mass index (BMI) [Ratio]30.12 kg/s3Igjgfuoi Ball Other [facility] Other 01-30-2024 09:00-0500Body fskhpa46.3 kgBenjamin Ball Other [facility]01-30-2024 09:00-0500 Diastolic blood bisdpnmj24 mm[Hg]Andrea Ball Other [facility]01-30-2024 09:00-0500 Respiratory rate20 /minBenjamin Ball Other [facility]ercy [facility] Other 01-30-2024 09:00-5975SxB7% (BldA) [Mass fraction]95 % Andrea Ball Other [facility] Other 01-30-2024 09:00-0500Systolic blood tfizyvrb166 mm[Hg] Andrea Ball Other [facility]12-04-2023 11:45-0500 Body pkwovr238.94 cmBenjamin Ball Other [employer] Other [id number] 11:45-0500Body mass index (BMI) [Ratio]29.4 kg/l5Buosukso Ball Other [employer] Other 12-04-2023 11:45-0500Body jsbejf28.58 kgBenjamin Ball Other [employer] Other [id number] 11:45-0500Diastolic blood smzkzvoz67 mm[Hg] Andrea Ball Other [employer] Other [id number] 11:45-0500Respiratory rate12 /minBenjamin Ball Other [employer] Other 12-04-2023 11:45-8782FtJ9% (BldA) [Mass fraction]98 % Andrea Ball Other [employer] Other 12-04-2023 11:45-0500Systolic blood gkmjjuvl292 mm[Hg] Andrea Ball Other [employer] Other 11-10-2023 08:30-0500Body ivfabg463.94 cmBenjamin Ball Other [employer] Other 11-10-2023 08:30-0500Body mass index (BMI) [Ratio] 29.59 kg/w8Zwvuutfi Ball Other [address] Other 11-10-2023 08:30-0500Body cnnubw13.03 kgBenjamin Ball Other [employer] Other 11-10-2023 08:30-0500Diastolic blood haxqleze53 mm[Hg] Andrea Ball Other [employer] Other 11-10-2023 08:30-0500Respiratory rate12 /minBenjamin Ball Other [employer] Other 11-10-2023 08:30-0500Systolic blood tircpclr089 mm[Hg] Andrea Ball Other [employer] Other 09-27-2023 13:45-0400Body aycrwf783.94 cmBenjamin Ball Other [employer] Other 09-27-2023 13:45-0400Body mass index (BMI) [Ratio] 29.36 kg/x4Vrzrmgqu Ball Other [address] Other 09-27-2023 13:45-0400Body otksxn74.49 kgBenjamin Ball Other [employer] Other 09-27-2023 13:45-0400Diastolic blood czisafab67 mm[Hg] Andrea Ball Other [address] Other 09-27-2023 13:45-0400Respiratory rate12 /minBenjamin Ball Other [address] Other 09-27-2023 13:45-0121ZjS6% (BldA) [Mass fraction]98 % Andrea Ball Other [address] Other 09-27-2023 13:45-0400Systolic blood cqdadogz993 mm[Hg] Andrea Ball Other [employer] Other 08-17-2023 15:05-0400Body .94 cmAmbsandro Webster Other [employer] Other 08-17-2023 15:05-0400Body mass index (BMI) [Ratio] 28.34 kg/u4QubcmShannan Webster Other [employer] Other 08-17-2023 15:05-0400Body uwulqcujzpt16.2 [degF]Shannan Webster Other [employer] Other 08-17-2023 15:05-0400Body .04 kgShannan Webster Other [employer] Other 08-17-2023 15:05-0400Diastolic blood knrvxryk06 mm[Hg] Shannan Websetr Other [employer] Other 08-17-2023 15:05-0400Respiratory rate18 /minAmbsandro Webster Other [employer] Other 08-17-2023 15:05-9240DqK5% (BldA) [Mass fraction]99 % Shannan Webster Other [employer] Other 08-17-2023 15:05-0400Systolic blood bddeogts518 mm[Hg] Shannan Webster Other [employer] Other 12-19-2022 15:00-0500Body dadcna416.56 cmLuma Chirinos Other [employer] Other [id number] 09:55-0400Blood Pressure LocationKathy Lue [facility]09-16-2022 09:55-0400Diastolic blood mhoijlsq52 mm[Hg]Asuncion Lue [facility]09-16-2022 09:55-0400Heart rate81 /minKathy Lue [facility]09-16-2022 09:55-0400Systolic blood owdojhcc992 mm[Hg]Asuncion Lue [facility]2022 10:15-0400Body ouqtxc578.56 cmThomas Olexa Other [employer] Other 2022 10:15-0400Body mass index (BMI) [Ratio] 24.89 kg/s2Uqtlzl Olexa Other [employer] Other 2022 10:15-0400Body bhdtuk25.77 kgThomas Olexa Other [employer] Other Encounters Encounter DateEncounter TypeCare ProviderFacilityStart: 01-25-2025 End: 47-71-3156kobommjnjiIxwvzlot Ball DO Work Phone: [phone]-Bcqsqq[facility]icsStart: 01-25-2025 End: 14-59-3649Djngigm encounter procedureThzaina Ruiz [place]-[facility] Work Phone: Start: 01-25-2025 End: 53-21-8030Lkzbjuw encounter procedureThzaina A Olexa MD-[facility] Start: 01-25-2025 End: 82-46-6973rwervmgwllRicvja OlexaFacility:[facility] Start: 45-94-6239Nwg-patient / Non-visitChrissy Hector MD-[facility] Work Phone: Start: 12-28-2024 End: 31-47-3330Soppwf flowsheetTomarco Vasquez MD Work Phone: [facility]: 12-28-2024 End: 17-48-9590Ftislb flowsheetTomarco Vasquez MD Work Phone: [facility]Start: 12-28-2024 End: 07-31-4927Jtmout outpatient visit 25 minutesTomarco Vasquez MD Work Phone: [facility] AllergyComment on above:Peripheral eosinophilia (Primary Dx); Chronic maxillary sinusitis; Cough variant asthma (HCC)Start: 12-28-2024 End: 74-75-0492mgflfwbycsIGYY E RAMBASEKNot AvailableStart: 12-22-2024 End: 45-15-4508dhnrbxwthmScptrnpv Ball DO Work Phone: [facility] Work Phone: Start: 12-22-2024 End: 17-50-7324Udnywln encounter procedureBeasia Golden DO-[facility] Work Phone: Start: 12-10-2024 End: 03-83-4276iqxbkbdifnLjpectm A. MouchliFacility:[facility] Hospitaltart: 12-10-2024 End: 05-85-8440Lhjrxbd encounter procedureDel Nettles [phone]-OdutoOhiohealth Grady [facility] Start: 10-29-2024 End: 22-80-1538Aimizbkpv encounterJeanette Luther MD Work Phone: NOMS Aubrey OtolaryngologyComment on above:refillStart: 15-53-8487Euv-patient / Non-visitAbe Mojica [facility] Work Phone: Start: 08-05-2024 End: 57-53-7620iznpzxymcpObqvokz A. 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 LueFacility:BHAVIN BellevueStart: 07-06-2024 End: 50-97-5777vtvoirhqxjJoxdv Schmiedl RNGastroenterologyStart: 07-01-2024 End: 39-46-3751Fixxdxibg encounterMabeth Hong RNGastroenterologyComment on above:Education Of Patient/family; Patient Question (Message sent to referring physician regarding a substitute for Gatorade)Start: 06-02-2024 End: 65-94-4266Ljtodihtm to same day surgery Yovanny Buchanan [facility] Start: 06-02-2024 End: 25-40-7080hatqgzvgzxYllto M. LueFacility:FTMCStart: 05-22-2024 End: 19-20-5650Aiadvqxoj encounterSsalvador Fallon MD Work Phone: GastroenterologyComment on above:Patient Question Start: 05-20-2024 End: 06-20-7868ydfsxwhkjmVohmt M. LueFacility:FTMCStart: 05-20-2024 End: 18-03-1022Qdwsdrs encounter Yun Buchanan [facility] Start: 04-30-2024 End: 31-31-8347Iakzyi flowsBailey Vasquez MD Work Phone: N[facility] SWS ALLStart: 04-30-2024 End: 57-35-0445Vdqhdt flowsBailey Vasquez MD Work Phone: N[facility] SWS ALLStart: 04-30-2024 End: 15-73-2184Vxfdyy outpatient visit 15 minutesTomarco Vasquez MD Work Phone: NOMS SWS ALLComment on above:Chronic maxillary sinusitis (Primary Dx)Start: 04-30-2024 End: 87-70-5847kntgygddjuCDPO E RAMBASEKNot AvailableStart: 04-22-2024 End: 33-39-2889hmelpldhxnEekbd M. LueFacility:EU BellevueStart: 04-22-2024 End: 77-56-6036Tdfdhxj encounter Yun Buchanan [facility] Tariq start: 04-16-2024 End: 78-44-2007Uhbljs flowsheetKatvivek E Rinkes DO Work Phone: [phone] [facility] OBStart: 04-16-2024 End: 96-94-7522Xifjur flowsheetKathleen E Rinkes DO Work Phone: noms [facility] OBStart: 04-16-2024 End: 47-57-6916Rfyxctq encounter statusKathltomás E Rinsteve DO Work Phone: noFL HealthcareStart: 04-16-2024 End: 39-76-7296Kzkqdmle preventive med est patient 65yrs& olderKathleen E Rinkes DO Work Phone: noms [facility] OBComment on above:Encounter for gynecological examination without abnormal finding; Screening for malignant neoplasm of cervix; Encounter for screening mammogram for breast cancer; Lichen sclerosus et atrophicus; Screening for osteoporosis; Postmenopausal status, age-relatedStart: 04-16-2024 End: 85-35-9278hrxmyczzldOVVTFCGU E CLAUDENot AvailableStart: 04-08-2024 End: 01-60-4591gdwdklgngjXrehs M. LueFacility:EU BellevueStart: 04-08-2024 End: 29-98-6809Yvzmdfx encounter procedureAsuncion Buchanan [facility] start: 04-07-2024 End: 56-42-5549Dxohnjgqk to same day surgery wallAsuncion Buchanan [facility] Start: 04-07-2024 End: 98-07-2793qfsfivrdiySdidf M. LueFacility:FTMCStart: 03-24-2024 End: 38-02-3575qysxcagwupKgppu M. LueFacility:FTMCStart: 03-24-2024 End: 84-62-6826Jzcoryz encounter procedureAsuncion Buchanan [facility] Start: 02-24-2024 End: 71-04-8127vtfxbxwomgHnaai M. LueFacility:FTMCStart: 02-24-2024 End: 70-66-2278Lthcast encounter procedureAsuncion Buchanan [facility] Start: 02-05-2024 End: 47-79-3146tihkjfiokpVwige MJose HowardeFacility:EU BellevueStart: 02-05-2024 End: 86-47-3482Odpmzws encounter procedureAsuncion Buchanan [facility] start: 02-05-2024 End: 04-37-6661skueteavmbBgaemebnwAdena Regional [facility] Center Work Phone: Start: 02-05-2024 End: 36-53-8518Ylwtjnm encounter procedureUnc [facility] Work Phone: Start: 13-04-6260Gzfmgjq encounter procedureSumma Health Barberton Campustart: 95-20-8106Vld-patient / Non-visitUnc Health Southeastern [facility] Work Phone: Start: 01-29-2024 End: 27-51-1802kvakavxkqwUKVUEMFD D ZAHLERNot AvailableStart: 12-30-2023 End: 91-47-7563Kuxcil flowsheetTomarco Vasquez MD Work Phone: [facility] SWS ALLStart: 12-30-2023 End: 04-92-4124Tmqtbo flowsheetCharito Vasquez MD Work Phone: [facility] SWS ALLStart: 12-30-2023 End: 21-43-8485Ocaqie outpatient visit 15 minutesTomarco Vasquez MD Work Phone: N[facility] SWS ALLComment on above:Chronic maxillary sinusitis (Primary Dx); Chronic pansinusitisStart: 12-30-2023 End: 61-66-3213qwgooahyfsXAAWYanet Zimmerman AvailableStart: 12-27-2023 End: 13-18-0307Xoyxnae encounter procedureSsalvador Fallon MD Work Phone: GastroenterologyComment on above:Iron deficiency anemia due to chronic blood loss (Primary Dx); Abnormal finding on GI tract imagingStart: 12-27-2023 End: 10-99-4579utialaqjegKBIMLVYM T SARMINIFacility:[facility] Start: 12-27-2023 End: 39-86-6076Rxu Drop offAsuncion Buchanan [facility] Start: 12-27-2023 End: 92-40-7155kdvhkzkrwoFqmxp M. 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] Start: 12-04-2023 End: 92-16-2246Giejvjpoz encounterSsalvador Fallon MD Work Phone: GastroenterologyComment on above:help rescheduling GI testStart: 62-72-2853Iup-patient / Non-visitFirelands Physician Group-[facility] Professional [facility] Work Phone: Start: 11-04-2023 End: 95-06-7076sqcgjfmjjtYULHISJD J [facility] Hospitaltart: 90-21-4082Vsbkcrdiz encounterSsalvador Fallon MD Work Phone: GastroenterologyComment on above:Patient QuestionOther partial intestinal obstruction (HCC) (Primary Dx)Start: 57-44-9762Nofrxqotp encounterCcf ProviderGastroenterologyComment on above:ConsultStart: 10-08-2023 End: 27-36-2878dggzllvpnyGFAO W [facility] Hospitaltart: 09-14-2023 End: 94-31-2910Buinqf outpatient new 60 minutesJhonny Maher MD Work Phone: uh [facility] WayneComment on above:Chronic maxillary sinusitis (Primary Dx); Chronic ethmoiditis; Chronic cough; Asthma, unspecified asthma severity, unspecified whether complicated, unspecified whether persistent ([facility]-HCC)Start: 09-14-2023 End: 89-59-3965cshhccrxbkMBNRBUJ D [facility] Start: 08-20-2023 End: 44-62-8522ngylxcsnseNlhjyilfzProMedica [facility] Work Phone: Start: 08-20-2023 End: 56-79-0694Sohxopd encounter procedureUnc Health Sout[facility]rey Work Phone: Start: 08-15-2023 End: 84-57-8302lruznohgouYcmnbsc A. MouchliFacility:JarrodHoward DHStart: 08-15-2023 End: 49-78-7713Ksqzdgc encounter procedureDel Nettles [phone]-OzglvOhiohealth Grady Memorial Hospital [facility] Start: 07-23-2023 End: 38-08-6971Oldwejzah Result EncounterJeanette Luther MD Work Phone: NOAG External Department UnsolicitedStart: 07-23-2023 End: 41-66-7700Mkabnuxlb Result EncounterJeanette Luther MD Work Phone: noms External Department UnsolicitedStart: 07-23-2023 End: 12-79-6862ovmjiwfhbiDdbmvm H TimmisFacility:FTMCStart: 07-23-2023 End: 43-83-3912Bvpvjrk encounter procedureHilary H Timmis [facility] Start: 07-17-2023 End: 63-51-3579tyklwkloobFnzqzvg AJose NettlesFacility:JimboHoward DHStart: 07-17-2023 End: 45-30-8486Jhisycp encounter procedureMojovan Nettles [phone]-EntlwOhiohealth Grady [facility] Hospital [facility] Start: 07-05-2023 End: 20-64-1641coyvoicvzbVnrzgzx Donita NettlesFacility:FTMCStart: 07-05-2023 End: 91-46-5746Wkuoooj encounter procedureMojovan Duckworth Mouchbeltran [facility] Start: 07-04-2023 End: 77-83-0030btyoinakcuGtcxjlz Donita NettlesFacility:JimboPawnee DHStart: 07-04-2023 End: 28-07-5607Jwlksxl encounter procedureMohamzeinab Springer. Mouchli [phone]-ZvgwxOhiohealth [facility]ady [facility] Start: 53-98-6912Jny-patient / Non-visitFirelands Physician Group-[facility] Work Phone: Start: 86-04-3201Wvv-patient / Non-visitFirperry parks [facility] Work Phone: Start: 13-28-6842qmifhkmmnwVblcury A. Mouchli Facility:[facility] DHStart: 06-21-2023 End: 16-16-2885snyhjfvndfDfbeosqmnAdena Regional Medical Center Work Phone: Start: 06-21-2023 End: 59-35-8570Sgezzsn encounter procedureUnc Health Southeastern Physician GroupAult[facility] Work Phone: Start: 05-30-2023 End: 26-95-9591bgmkcojkpzWgfmgvh A. MouchliFacility:Hardy DHStart: 05-30-2023 End: 34-62-2956Tnkilgk encounter procedureMohamad A. Mouchli [phone]-ZaghvOhiohealth Grady Memorial Hospital [facility] Start: 48-95-5118Yjp-patient / Non-visitUnc Health Southeastern [facility] Professional Altheos Work Phone: Start: 05-22-2023 End: 84-89-9765szuptnjsgaEdlybyy A. MouchliFacility:FTMCStart: 05-22-2023 End: 90-68-8970Nzgweyg encounter procedureMohamad A. Mouchli [facility] Start: 05-14-2023 End: 48-80-7194bokkrovuodLojlmza A. MouchliFacility:Hardy DHStart: 05-14-2023 End: 05-63-8197Rsqctgu encounter procedureMohamad A. Mouchli [phone]-EuuuoOhiohealth Grady [facility] Hospital [facility] Start: 04-22-2023 End: 04-73-1137qnelceoaulInzudnff Ball Other noMain [facility] Fubles Other Start: 39-08-2135Biyanq Virginia Vasquez MD Work Phone: NOM[facility] SWS ALLStart: 89-92-3935Cuoaiedagoberto Vasquez MD Work Phone: N[facility] SWS ALLStart: 79-69-8037Hyppugtfz encounter Andrea BallFPG [facility] Medical ClinicStart: 04-19-2023 End: 65-23-8069hqoeawuzvaCtznitfp Ball Other noFoody Other Start: 49-41-4639Kyhxcwbtz encounterBenjamin BallFPG [facility] Medical ClinicStart: 14-18-0187Wpkkacdsh encounterBenjamin BallFPG [facility] ClinicStart: 04-18-2023 End: 53-33-1261lgdcisyjeoViohhxbh Ball Other noFoody Other Start: 04-16-2023 End: 43-53-4477ouctrqmlwfLwiicpdj Ball Other noEncapson Interface21 Other Start: 97-17-4985Ohazah outpatient visit 25 minutes Andrea BallFPG [facility] ClinicStart: 04-16-2023 End: 77-06-1227Pqgljdl encounter procedureFirelands Physician Group-Start: 04-04-2023 End: 45-13-3668ngshktnpuwBcsweyry Ball Other noEncapson Interface21 Other Start: 62-24-7195Qxcbnhecy encounterBenjamin BallFPG [facility] Medical ClinicStart: 03-08-2023 End: 39-05-5605tbwmembqjfWrjjdkvu Ball Other noFoody Other Start: 94-24-8269Jtcehxtgk encounterBenjamin BallFPG [facility] ClinicStart: 03-06-2023 End: 51-01-4746wpfpuohsxmTkrizcpm Ball Other noFoody Other Start: 69-50-7109Ayqdcpnlv encounterBenjamin BallFPG [facility] ClinicStart: 02-25-2023 End: 52-41-6254zxapixfzwlHyslsawv Ball Other noFoody Other Start: 43-07-9381Oyfaekbqv encounterBenjamin BallFP[facility] ClinicStart: 02-20-2023 End: 95-69-9556vgjudfhehlAonvh MJose Hullacility:EU BellevueStart: 02-20-2023 End: 32-11-5284Njhkhwr encounter procedureAsuncion Buchanan [facility] start: 02-18-2023 End: 66-80-5042fflceokhxsWrswhfoa Ball Other noFoody Other Start: 17-26-3580Epgutl outpatient visit 15 minutes Andrea BallFP[facility] ClinicStart: 02-05-2023 End: 01-96-8217jrgabszmmdMgdrwsdg Ball Other noFoody Other Start: 87-91-4821Zqajetcpm encounterBenjamin BallFP[facility] ClinicStart: 01-31-2023 End: 48-99-7030qasniizpthIwnsiylj Ball Other noFoody Other Start: 97-88-9971Yfkvyajly encounterBenjamin BallFP[facility] ClinicStart: 01-29-2023 End: 03-64-7856hoihvbhuhlFwmhpqkp Ball Other noFoody Other Start: 12-26-8951Blihujxtt encounterBenjamin BallFP[facility] ClinicStart: 01-25-2023 End: 71-99-4162wyqihnekkjRtqbvvje Ball Other noFoody Other Start: 97-74-0126Wgkgsct encounter procedureBenjamin BallFP[facility] ClinicStart: 65-40-6800Ptsjusntw encounterBenjamin BallFP[facility] ClinicStart: 12-12-2022 End: 13-63-7135gpfxhorthdWutxdwjl Ball Other noFoody Other Start: 58-48-6328Cfmyar outpatient visit 15 minutes Andrea BallFP[facility] ClinicStart: 11-07-2022 End: 87-10-4217gvhvdgnfydFxbwvqfn Ball Other noFoody Other Start: 55-82-0444Xjuavuuwx encounterBenjamin BallFPG [facility] ClinicStart: 11-01-2022 End: 10-87-7129kmaiqzuejxJahqz Keller Other noEncapson Interface21 Other Start: 90-54-5729Opgpzy outpatient visit 25 minutes Shannan KellerFPG Urgent Care ClydeStart: 06-27-2022 End: 67-20-2429mgxdimyualOL JEROME ESPINOSAFacility:D4Gjbbf: 06-04-2022 End: 15-77-8340izpkstexvnBytqnvnf Ball Other noFoody Other Start: 35-16-8243Wkaocqyxd encounterBenjamin BallFP[facility] ClinicStart: 05-17-2022 End: 33-39-6341uaksxanimtLJ CAMPOS ERAZOFacility:O5Qdbrg: 04-26-2022 End: 25-67-5434aiuunhpfusYX JEROME ESPINOSAFacility:V9Znyol: 04-25-2022 End: 82-74-4639wbilywzkavZgppgthk Ball Other noFoody Other Start: 53-89-1242Akpmwxvpf encounterBenjamin BallFP[facility] ClinicStart: 04-10-2022 End: 13-61-2401wfgowsfrtzNzeovqan Ball Other noEncapson Interface21 Other Start: 14-31-0055Iextvkmgc encounterAndrea Golden Medical ClinicStart: 95-84-7473Kibwnbizs for preprocedural cardiovascular examinationPETER D [facility] Hospitaltart: 90-11-8032Bwwonddsg for preprocedural laboratory examinationPETER D [facility] Start: 04-06-2022 End: 84-29-1665mpeobhwsptZgogscea Ball Other noEncapson Interface21 Other Start: 87-87-8288Ieebhbutz encounterAndrea Golden Medical ClinicStart: 04-05-2022 End: 62-43-3781qgszfhgbuiJP JEROME CANCINOERFacility:Y8Uheve: 04-02-2022 End: 81-26-3043tazzvtqrtqUCJQA D [facility]OSPITALFacility:M4Dioup: 04-02-2022 End: 54-62-7092Mqgnzxhnk for preprocedural cardiovascular examinationPETER D [facility]OSPITALFacility:F6Nquhb: 03-28-2022 End: 71-96-1483fepjbwfvybLM JEROME CANCINOERFacility:V4Nzcxr: 03-20-2022 End: 35-30-9434ihfpajjcfxVU ANDREA GOLDENFacility:F6Oxbpi: 03-12-2022 End: 24-03-5431ineyoiojqiLN JEROME ESPINOSAFacility:N7Svspv: 03-05-2022 End: 60-26-7958zgmfoxrwrbRtefqyzx [place] Other [facility] Interface21 Other Start: 75-09-4486Gtyche outpatient visit 15 minutes Luma [facility] OrthopedicsStart: 01-29-2022 End: 14-64-6953owajsxlslaER ANDREA GOLDENFacility:B1Txpth: 17-38-9370Wphhy health examinationAmber Darin Other [facility] Interface21 Other Start: 12-01-2021 End: 44-97-9087Fllvlij encounter procedureKatemmanuelle MJose Lubharati [facility] [place] Start: 10-10-2021 End: 62-68-5126ccddcvdlueWusoje Olexa Other [facility] Interface21 Other Start: 75-62-6460Zoqtox outpatient visit 25 minutes Espinoza Stoll [place] OrthopedicsStart: 10-10-2021 End: 09-74-5088Dzdozkh encounter procedureMD Espinoza Ruiz Work Phone: [facility] [place] [facility] Start: 10-05-2021 End: 26-55-2323bpivwuwqzmCiejwi Olexa Other [facility] Interface21 Other Start: 87-92-4394Azcswtcbh encounterThomas OlexaFPG [place] OrthopedicsStart: 10-02-2021 End: 27-58-0171facsekqrikNT ANDREA BALLFacility:H1 Procedures DateProcedureProcedure DetailPerforming ClinicianStart: 28-57-9809Yhowm X-ray of left shoulderBenjamin Ball DO Work Phone: Start: 76-20-9664YJ lumbar spine 6V w bendingBenjamin Ball DO Work Phone: Start: 90-80-1832Rnzklvpdn upper small intestine Kasey Fallon MD Work Phone: Start: 30-05-7607PwwohswldnZjmme Lue Start: 01-96-8495AsyfuvqcwhQwdaa Lue Start: 95-18-2744OxybjtosglwKigblzlm Zahler DO Work Phone: Start: 01-29-2024 End: 76-50-1861Yxyyx medical xm&eval comprhnsv estab pt 1/>Keratoconjunctivitis sicca of both eyes not specified as Sjogren'sJalisboo Richard Lal DO Work Phone: comment on above:Keratoconjunctivitis sicca of both eyes not specified as Sjogren's (Primary Dx); Blepharitis of upper and lower eyelids of both eyes, unspecified type; Bilateral posterior capsular opacificationStart: 70-56-3189Kjdgkljilr exam small int single contrast studyKasey Fallon MD Work Phone: Start: 26-22-1546PR MAXILLOFACIAL W/O CONTRASTHilary Elie Luthre MD Work Phone: Start: 74-90-3341NwdbzglpsvfRjducbb Rodriguez MD Work Phone: Start: 52-61-0365MfsdmjralqtKiisllq Mouchli Start: 91-13-5754LmsyxbbeogwrtsuwgmnozrfhylCrldvwv Mouchli Start: 71-56-8049DnpnfahncfvRqmb Rambasek MD Work Phone: Start: 16-43-9538Wmyvq X-ray of left shoulderMD Espinoza Ruiz Work Phone: Start: 67-96-0967DxrckqufoumUspj Rambasek MD Work Phone: Start: 23-29-6618SllimgthfxzZzqhr Lue Start: 13-68-8960KqahezpcwoykqbdubomfjmtwffSjauf Lue Start: 32-53-9206IcsdmjlabuzLdkni Lue Comment on above:normalStart: 01-16-2015 EsophagogastroduodenoscopyKathy Lue Start: 39-57-1223MylgdobixntfuixjenafyqiepzFvdsr Lue Start: 54-55-5639CnqlpyjfvqivjjgufnpxtmjqqdVakfx Lue Start: 91-74-1426Grmekqyzsequ cholecystectomyKathy Lue Start: 93-57-7191FylodpvpkgvKhdbv Lue Bilateral cataracts (disorder)Asuncion Lue Cesarean sectionKathy [...] ThyroidectomyKathy Lue Plan of Treatment DateCare ActivityDetailAuthorStart: 12-78-2421Lzurxwavh for malignant neoplasm of colonNOMS HealthcareStart: 67-52-2566Ifthrdlzv for malignant neoplasm of colonNOMS HealthcareStart: 05-11-2025 End: 31-39-4904Kkaeiyf encounter procedureNOMS SWS OBStart: 04-29-2025 End: 17-37-2598Dnevzrb encounter gvfnbyolg30/12/2026 9:20 AM EST Office Visit [facility] [address] [place] [address] Charito Vasquez MD [address] [place] [address] NOMAnkit [facility] AllergyStart: 02-24-2025 End: 73-80-8780Zvgmzqr encounter hsjumrvbq45/10/2025 10:50 AM EST Office Visit [facility] [address] [place] [id number] Janae Crane MD [address] [place] [address] NOMAnkit [facility] DermatologyStart: 02-02-2025 Screening for malignant neoplasm of breastMammogramNOFL HealthcareStart: 02-02-2025 End: 47-06-3970Zltjlzl encounter procedureNOMS NB OPHTStart: 85-88-6124Bpzid X- ray of left shoulderXR shoulder LT min 2V*[facility] Start: 74-51-0374QV Shoulder - left ViewsSumma Health Barberton Campustart: 12-28-2024 End: 41-44-9326Bjxrxgs encounter procedureNOMS SWS ALLComment on above:Arrived Start: 02-17-6278Osovyddth vaccinationInfluenza Vaccine (#1)[facility] Start: 29-40-9580Qrjza-19 Vaccine ( season)Covid-19 Vaccine ( season)[facility]: 07-13-2024 End: 31-94-1167Xrccwnm encounter fzhkhauwe47/28/2025 1:00 PM EDT Appointment Gastroenterology [address] [phone] Kasey Fallon MD [facility] [address] [address] Iron deficiency anemia due to chronic blood loss [D50.0]GastroenterologyComment on above:Iron deficiency anemia due to chronic blood loss [D50.0]Start: 04-30-2024 End: 04-44-3959Oioqjvy encounter procedureNOMS [facility] ALLComment on above:Arrived Start: 04-16-2024 End: 72-20-1997Lepnrmz encounter aybxronva40/30/2025 10:30 AM EST Office Visit NOMS [facility] OB [address] [place] [phone] Madison Burns, DO [address] [place] [address] Encounter for gynecological examination without abnormal finding; Screening for malignant neoplasm of cervix; Encounter for screening mammogram for breast cancer; Lichen sclerosus et atrophicusNOMS [facility] OBComment on above:Encounter for gynecological examination without abnormal finding; Screening for malignant neoplasm of cervix; Encounter for screening mammogram for breast cancer; Lichen sclerosus et atrophicusStart: 04-08-2024 End: 84-21-0449Kzyewqu encounter opahwpgmn88/22/2025 9:45 AM EST Office Visit NOMS [facility] OB [address] [place] [address] Madison Burns, DO [address] [place] [address] NOMAnkit [facility] OBStart: 45-17-3062Wdmoshg Directive Discussion Advance Directive DiscussionFair Haven ClinicStart: 34-83-5595Kkkblbham for malignant neoplasm of breastMammogramNOMS HealthcareStart: 01-29-2024 End: 53-37-0101Mgednkw encounter fapgcyrhf11/13/2024 8:15 AM EST Office Visit [facility] [address] [place] [phone] Marsha Lal, [address] [place] [address] NOMS BLESSING OPHTStart: 01-20-2024 End: 53-90-8719Svbxvhe encounter lwipsgtym03/04/2024 8:15 AM EST Office Visit [facility] [address] [place] [phone] Marsha Lal DO [address] [place] [address] NOMS NB OPHTStart: 12-30-2023 End: 49-73-7609Jqqmqqs encounter ulbfndzfy18/14/2024 9:20 AM EDT Office Visit N[facility]S SWS ALL [address] [place] [address] Charito Vasquez MD [address] [place] [address] ArrivedNOMS SWS ALLComment on above:ArrivedStart: 12-27-2023 End: 12-30-7342Xjiahry encounter cjskzebgl97/11/2024 4:30 PM EDT Office Visit Gastroenterology [address] [phone] Kasey Fallon MD [facility] [address] [place], [place] [id number] New Patient consult 30min- Double Balloon GastroenterologyComment on above:New Patient consult 30min- Double BalloonStart: 12-27-2023 End: 70-51-3763Zuapcnw encounter /11/2024 9:40 AM EDT Appointment Radiology [address] [place] [address] Otherpartial intestinal obstruction (HCC) [K56.690]RadiologyComment on above: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]Start: 94-24-6896Nupsm-19 Vaccine ()Covid-19 Vaccine ( season)[facility]: 25-35-2920Gkouh-19 Vaccine ()Covid-19 Vaccine ()[facility]: 22-73-3496Zxfwvnoab vaccinationInfluenza Vaccine (#1)[facility]: 10-31-2023 End: 85-81-2129XHPJFLLXKI BLDCREATININE BLD Lab Routine Other partial intestinal obstruction (HCC) Expected: 10/31/2023, Expires: [facility] Comment on above:Expected: 10/31/2023, Expires: 01/30/2024Start: 10-08-2023 End: 44-66-3850Abjycaz encounter /23/2024 9:45 AM EDT Office Visit [facility] [address] [place] [address] [place] [address] [facility] Department [place] [address] [facility]: 08-98-1686EFLNO-19 Vaccine ()COVID-19 Vaccine ()[facility]: [facility] End: 03-19-0845Saqqyni encounter bzvhxhbwy11/05/2024 11:00 AM EST Office Visit [facility] [address] [facility] [address] [place] [id number] Charito Vasquez MD [address] [address] ArrivedNOMS SWS ALLComment on above:ArrivedStart: 18-04-8508Nejmymy Directive DiscussionAdvance Directive DiscussionCleMagruder Hospitaltart: 37-50-3500Evvdddwgr for malignant neoplasm of breastMammogram ScreeningLake County Memorial Hospital [facility]: 62-40-7370Qpdhq-19 Vaccine ( season) Covid-19 Vaccine ( season)[facility]: 05-01-2018Medicare Annual Wellness VisitMedicare Annual Wellness VisitLake County [facility] Hospital - Westtart: 23-78-1719SXD Vaccine (1 - 1-dose 60+ series)RSV Vaccine (1 - 1-dose 60+ series) [facility]: 31-24-7614Zgfdpdjd Vaccine (1 of 2)Shingrix Vaccine (1 of 2)[facility]: 40-39-0979Yvphvx Vaccines (1 of 2)Zoster Vaccines (1 of 2)[facility]: 97-80-3020Fesynaax Screening Diabetes ScreeningLake County Memorial Hospital - [facility]: 89-68-6658Acfpr panelLipid Screening [facility]: 53-78-6335Msjkrixyb for malignant neoplasm of colon [facility]: 43-12-3850UKrB/Tdap/Td Vaccines (1 - Tdap)DTaP/Tdap/Td Vaccines (1 - Tdap)[facility]: 28-70-0511Ylugl microalbumin profileDTaP,Tdap,Td Vaccine (1 - Tdap)[facility]: 59-47-8153Rxvzajo ScreeningAnxiety ScreeningMercy Health St. [facility] Hospitalrt: 1970 Depression ScreeningDepression ScreeningMercy Health St. Joseph Warren Hospitalrt: 1968 Hepatitis C screeningHepatitis C ScreeningMercy Health St. Joseph Warren Hospitalrt: 60-24-7684Orcan panelLipid PanelUnPremier Health [facility]: 05-11-1953Medicare Annual Wellness VisitMedicare Annual Wellness Visit (AWV)[facility]: 14-94-2470Ekyzlalwe for malignant neoplasm of colonBothwell Regional Health CenterStart: 33-91-0894Qmvldkn stimulating hormone measurementTSH Level [facility] End: 56-48-7884NCL W Auto Differential panel - BloodCBC and differential Lab Routine Peripheral eosinophilia 12 Occurrences starting 12/28/2024 until [facility] Work Phone: Comment on above:12 Occurrences starting 12/28/2024 until 12/28/2025 End: 46-97-3993NW Small bowel W contrast PO and W contrast IVCT ENTEROGRAPHY W IVCON Radiology Routine Other partial intestinal obstruction (HCC) 1 Occurrences starting 10/31/2023 until 11/29/2024[facility] Work Phone: Comment on above:1 Occurrences starting 10/31/2023 until 11/29/2024DBT Breast - bilateral screeningBilateral screening mammogram with tomosynthesis Imaging Routine Encounter for screening mammogram for breast cancer Ordered: 04/16/2024NOFL HealthcareComment on above:Ordered: 04/16/2024DXA Skeletal system Views for bone densityDEXA bone density Imaging Routine Screening for osteoporosis Postmenopausal status, age-related Ordered: 04/16/2024NOFL HealthcareComment on above:Ordered: 04/16/2024 End: 99-99-0016WZFRUYJENGJZUDJPHNGHKH Endoscopy Routine Iron deficiency anemia due to chronic blood loss Abnormal finding on GI tract imaging 1 Occurrences starting 12/27/2023 until 12/26/2024[facility] Work Phone: Comment on above:1 Occurrences starting 12/27/2023 until 12/26/2024IGP, RFX APTIMA HPV ASCUIGP, RFX APTIMA HPV ASCU Lab Routine Screening for malignant neoplasm of cervix Ordered: 04/16/2024[facility] Work Phone: comment on above:Ordered: 04/16/2024Patient Education Low back pain [facility]Martin [facility] Work Phone: Tissue Pathology biopsy reportMercy Health West Hospital Work Phone: Comment on above:Release Upon Ordering for 1 Occurrences starting 07/13/2024, 1 completedXR Lumbar spine ViewsOur [facility] Of Mercy Hospital Immunizations Immunization DateImmunizationNotesCare EnzazdlfVqecxfbd98-72-0547qavyinymi virus vaccine, unspecified formulationMojovan Nettles [facility]10-16-2023Flu Shot - Documentation Purposes OnlyBenjamin Ball Other [facility]10-16-2023influenza virus vaccine, unspecified formulationKathy Lue [facility]10-16-2023respiratory syncytial virus (RSV) vaccine, adjuvanted (AREXVY) Kasey Fallon MD Work Phone: [facility] CenterGdwwmc37-79-4135BGYM-LrD-4 (COVID-19) mRNAMUL.ORD!c53255Uyyyt Lue [facility]10-03-2022influenza (HD-IIV4) vaccine, age 65+ yr, high dose, quadrivalent, PF (FLUZONE HIGH-DOSE)Kasey Fallon MD Work Phone: [facility] CenterPdcuni19-36-5732pwtzaqymj virus vaccine, split virus (incl. purified surface antigen)Shannan Webster Other [employer] Other 1189660-16-9817iokgxokni virus vaccine, unspecified formulationKathy Lue [facility]04-19-2022SARS-CoV-2 (COVID-19) mRNA-1273 vaccineKathy Lue [facility] [place] 925381-08-2021SARS-CoV-2 (COVID-19) mRNA-8423 vaccineKathy Lue [facility]09-08-2021influenza (aIIV4) vaccine, age 65+ yr, quadrivalent, PF (FLUAD QUAD)Kasey Fallon MD Work Phone: [facility] CenterGhhmks72-52-3080dcxrywhfu virus vaccine, split virus (incl. purified surface antigen)Shannan Webster Other [employer] Other 337453-29-0419dmxmbbtef virus vaccine, unspecified formulationKathy Lue [facility]03-18-2021SARS-CoV-2 (COVID-19) mRNA-1276 vaccineKathy Lue [facility]02-18-2021SARS-CoV-2 (COVID-19) mRNA-1273 vaccineKathy Lue [facility]01-01-2021SARS-CoV-2 (COVID-19) mRNA-1273 vaccineKathy Lue [facility] HospitalyComment on above:Result Comment: 3 shots to pjpc78-33-1253digtfsovm virus vaccine, split virus (incl. purified surface antigen)Shannan Webster Other [employer] Other 754313-54-7258sfqnbfutb virus vaccine, unspecified formulationKathy Lue [facility]09-21-2020influenza, injectable, quadrivalent, preservative freeKasey Fallon MD Work Phone: [facility] CenterTjmvgz02-81-3861dnxfifxgj virus vaccine, unspecified formulationKathy Lue [facility] Hospitaly10-21-2019Influenza, injectable, Madin Roxana Canine Kidney, preservative free, quadrivalentKasey Fallon MD Work Phone: [facility] CenterClkqkt14-56-5684jnenvewxdnnl polysaccharide vaccine, 23 valentKathy Lue [facility] Hospitaly10-02-2019influenza virus vaccine, unspecified formulationKathy Lue [facility] Hospitaly10-04-2018influenza virus vaccine, unspecified formulationKathy Lue [facility] Hospitaly10-04-2018Seasonal trivalent influenza vaccine, adjuvanted, preservative Christina Fallon MD Work Phone: [facility] CenterQhvguv24-32-9372hrvihpyqo virus vaccine, split virus (incl. purified surface antigen)Shannan Webster Other [employer] Other 1200643-31-9557wvdpahrcc virus vaccine, unspecified formulationKathy Lue [facility] [place] 925380-26-2017influenza, injectable, quadrivalent, preservative Christina Fallon MD Work Phone: [facility] CenterYwdspy84-00-5073msfqdmtxjyvn conjugate vaccine, 13 valentKathy Lue [facility] [place] 925380-19-2016influenza virus vaccine, unspecified formulationKathy Lue [facility] [place] 925380-19-2016influenza, seasonal, injectable, preservative Christina Fallon MD Work Phone: [facility] CenterWdlycg99-33-0219apicanweascp polysaccharide vaccine, 23 valentKathy Lue [facility] Payers DatePayer CategoryPayerPolicy [id number] Health Insurance [id number] 1.2.840.[id number] 2018Medicare 1.2.840.529014.1.13.693.2.7.3.741267.315 [id number] 2.16.840.9.11003[id number] 2.16.840.6.388846.8572-11-1953 [id number] 2.16.840.1.258200.3.57[id number] 2.16.840.1.418895.3.579.2.30333-88-3491Uhmfcyd3623912 2.16.840.1.371015.3.579.2.70177-06-3002Dhouiaq2784927 2.16.840.1.263343.3.579.2.00353-46-3601Hyzpjgm4671635 2.16.840.1.310182.3.579.2.07683-86-3829Yfnhedr5126159 2.16.840.1.810804.3.579.2.86462-99-4516Bjiouxu9603121 2.16.840.1.148387.3.579.2.38349-80-0819Rgykmjx5074459 2.16.840.1.289496.3.579.2.90064-93-1920Erijgvv0761241 2.16.840.1.038488.3.579.2.00145-71-0972Bfjqurk0470980 2.16.840.1.130548.3.579.2.31878-73-5126Oowftwt80052436 2.16.840.1.719467.3.579.2.809677-53-0629Iwufxar45295860 2.16.840.1.217493.3.579.2.034090-82-5124Vfrmtxe22021301 2.16.840.1.782420.3.579.2.802077-41-2945Apzykdh61127438 2.16.840.1.203537.3.579.2.12701-09-9575Icrhyva32583488 2.16.840.1.905586.3.579.2.92063-83-7678Zbhxsfx95092737 2.16.840.1.286974.3.579.2.21267-81-4940Acvimmw47396744 2.16.840.1.575200.3.579.2.53776-61-0679Hwgfiay51907531 2.16.840.1.255343.3.579.2.49532-65-9439Avnhztx30210861 2.16.840.1.196921.3.579.2.01983-27-3070Kvpthwh52914658 2.16.840.1.857190.3.579.2.24953-33-2627Lsdqhmh76631618 2.16.840.1.272265.3.579.2.37707-89-7655Gjuulva99520465 2.16.840.1.312766.3.579.2.02087-13-2832Tjqzuoy34095361 2.16.840.1.709344.3.579.2.61504-74-9588Knldywk86265510 2.16.840.1.175839.3.579.2.52508-04-6657Imjamjl04442855 2.16.840.1.059004.3.579.2.22955-62-3555Mjkxkxs02771380 2.16.840.1.902992.3.579.2.86072-98-7183Tixmhoz07915300 2.16.840.1.670514.3.579.2.51068-30-4449Llbvkcy41100793 2.16.840.1.652746.3.579.2.40679-19-5867Dmswzwo27727556 2.16.840.1.676663.3.579.2.48260-16-7642Jupjsbd32460926 2.16.840.1.081009.3.579.2.64228-69-2933Rjilkfb63548372 2.16.840.1.738408.3.579.2.84023-70-3680Sansrhw55981834 2.16.840.1.664265.3.579.2.87334-18-4032Iloqgst06921094 2.16.840.1.607007.3.579.2.25386-81-7572Sswfcsd33697250 2.840.1.662235.3.579.2.61358-53-4618Gqyimvd28594998 2.840.1.574073.3.579.2.90762-14-1035Gqbvoap81647447 2.840.1.201674.3.579.2.29248-12-2248Qzuydhu50981309 2..840.1.879383.3.579.2.899184-63-0865Aqkplak0417239 2.840.1.752218.3.579.2.030373-81-4384Hyywufa2572766 2.840.1.188091.3.579.2.332891-02-6358Odsqjkj7352375 2.840.1.078025.3.579.2.696552-96-7793Kznkvdc5581611 2.840.1.057622.3.579.2.1259Self-paySe Pay [id number]-n8d6-321v-s81w-[id number] Social History DateTypeDetailFacilityUnknown if ever smokedNortWills Eye Hospital Fubles Other Start: 03-07-2023 End: 48-96-6974Hco Assigned At [facility] [employer] Other Start: 11-11-2018 End: 23-15-3273Ocaqtfq smoking status NHISNever smoked tobacco (finding) [facility] Campustart: 71-12-3020Qzt Assigned At [facility] SystemFeCentervilletart: 96-87-7917Ocdgzsq smoking statusNever [facility] BellevueStart: 03-07-2023 End: 11-23-0713Vjparxj use and exposureSmokeless tobacco non-userNOMS Healthcare Start: 03-07-2023 End: 94-30-5166Gkkclvw intakeLifetime non-drinker (finding)[facility] HealthcareStart: 03-07-2023 End: 94-41-7495Cbklwoo of Social functionNOMS HealthcareStart: 42-51-3855Mfwlafg CommentCaffeine : sodaNOMS HealthcareStart: 55-18-4280Ggrxhr identityIdentifies as female gender (finding)[facility] HealthcareStart: 12-08-2007 End: 77-31-6939Wdpfypr intakeCurrent non-drinker of alcohol (finding)[facility]: 49-62-6882Xol Assigned At BirthNot on [facility] Work Phone: Start: 59-83-1042FtmUbzfha (finding)[facility] Campustart: 09-04-2023 End: 41-64-0656Voymxpzn to SARS-CoV-2 (event)Not [facility] HospitalSexual OrientationRegency Hospital [facility] Medical Equipment Procedure CodeEquipment CodeEquipment Original TextEquipment [...] MD 06/02/24 Unknown UrethraFDAStart: 06-02-2024 Functional Status SsmuByyvwetizbAqittiGkffezpn03-10-5233Hllkiogusq StatusN/[facility] Pigcey21-62-2963Fowbxbgkok StatusSt. Mary's Medical Center02-05-2025Functional StatusN/AExec[facility] of [facility]01-07-2025Functional StatusSt. Mary's Medical Center 79-87-5596Kjqmzkbnhz StatusN/[facility]11-20-2024Functional StatusN/A[facility]05-30-2024 Functional StatusN/[facility] Dig[facility]ive Tqsyln76-24-7075 Functional StatusN/[facility]ive Xbpqfa07-45-9122 Functional StatusN/[facility]02-27-2024Functional StatusN/A [facility] Kwiwdl45-08-2239Rrqxnzwzhd StatusN/A [facility]09-16-2022Functional StatusN/A[facility] Clinical Notes 10-10-2021 to 12-28-2024 Note Date & KmbsFetwIegdvczk64-53-8572 History of Present illness Narrative* Charito Vasquez [...] sooner should problems arise. documented in this encounterBothwell Regional Health CenterOtlruetvrs85-29-8219 Evaluation note* Diagnosis Onset Date Resolution Status Admit Date Low back pain acuteOctober 2024 9:42amLumbar spondylosisacuteOctober 2024 9:42am OsteoporosisacuteOctober 2024 9:42amTear of left supraspinatus tendonacute January 25, 2025 10:40am [facility] Work Phone: [phone] 750-899208-15-2025 Telephone encounter Note* Telephone Encounter - Alycia Luther - 10/30/2024 1:40 PM EDT Left message for pt to call office back to schedule appt with Dr Luther. [facility] CenterDxbmporvyo09-46-3051 Miscellaneous Notes* Telephone Encounter - Alycia Luther [...] refill of Zyrtec called in to [facility] in [place]. She asked for the 90 day with 3 refills. Her call back [phone] documented in this encounterNOWright Memorial HospitalRxaexognxw74-17-4022 Telephone encounter Note* Telephone Encounter - Jeanette Luther MD - 10/30/2024 12:44 PM EDT Not seen in over a year. Needs appt or can get from PCP or OTC [facility] CenterKcglosfwta62-30-7415 Telephone encounter Note* Telephone Encounter - Asuncion Huddleston - 10/29/2024 10:41 AM EDT Pt called requesting a refill of Zyrtec called in to [facility] in [place]. She asked for the 90 day with 3 refills. Her call back [phone] [facility] Health CenterAardhedpar83-50-8630 Nurse Note* Linda Alvarado RN - 07/13/2024 [...] MATERIAL: Procedure Discharge Instructions REFERRAL (RECOMMENDATION): None [facility]04-28-2025 Nurse Note* Linda Alvarado RN - 07/13/2024 [...] RN In Department: GASTROENTEROLOGY documented in this encounterCincinnati Children'S [facility] Center04-28-2025 NoteQ3 Patient Name: Munira Chester Procedure Date: 07/13/2024 12:36 PM Date of : 1950 Admit Type: Outpatient Age: 73 Gender: Female Note Status: Finalized Attending MD: Kasey Fallon MD, [id number] Procedure: Lower Device-Assisted Enteroscopy without Fluoroscopy Indications: [...] that were not (more content not included)... [id number] NoteHNO ID: [id number] Author: ROSAURA MARIE APRN.OPTICIAN APPRENTICE DISPENSING Service: ? Author Type: Nurse Motor Vehicle Operator Road Supervisor Type: Anesthesia Procedure Notes Filed: 07/13/2024 13:59 Note Text: ANESTHESIOLOGY PROCEDURE NOTE Airway General Information Procedure Start Time/Medication Administration: 07/13/2024 1:47 PM Procedure End Time: 07/13/2024 1:58 PM Patient location during procedure: OR Timeout Performed Pre-procedure: timeout performed Consent Obtained: Yes Patient identity confirmed: arm band and patient Staffing OPTICIAN APPRENTICE DISPENSING: Rosaura Marie APRN.OPTICIAN APPRENTICE DISPENSING Performed by: JOHNNY Indications and Patient Condition [...] July 13, 2024 TIME: 1:58 PM CSN: [id number] Hospitals Ahuja Medical Center04-28-2025 History and physical note* Kasey [...] ORAL) Take by mouth. vit A/vit C/biotin/zinc/copper (HLIM-AHLE-XJIT,VIT A,C-BIOTIN, ORAL) Take by mouth. aspirin 325 [...] (FLONASE) 50 mcg/actuation nasal spray Use 1 [place] in each nostril once daily. atorvastatin (LIPITOR) [...] NAME: Munira Chester DATE: 07/13/2024 TIME: 1345 [facility]04-28-2025 History and physical note* Kasey [...] ORAL) Take by mouth. vit A/vit C/biotin/zinc/copper (EGOM-KOJI-GAZN,VIT A,C-BIOTIN, ORAL) Take by mouth. aspirin 325 [...] (FLONASE) 50 mcg/actuation nasal spray Use 1 [place] in each nostril once daily. atorvastatin (LIPITOR) [...] DATE: 07/13/2024 TIME: 5 documented in this encounterCincinnati Children'S Hospital Medical Center04-28-2025 Nurse Note* Mary Callejas RN - 07/13/2024 12:56 PM EDT PRE OP LEARNING ASSESSMENT PROCEDURE/SURGERY: GI PROCEDURES: Colonoscopy READINESS TO LEARN COGNITIVE ABILITY: Alert and oriented MOTIVATION TO LEARN: Eager FAMILY SUPPORT: High - Very involved in pt care PATIENT LEARNS BEST BY: Individual Instruction FACTORS AFFECTING LEARNING: None PHYSICAL LIMITATIONS AFFECTING LEARNING: None Electronically Signed By: Mary Callejas RN In Department: GASTROENTEROLOGY [facility]04-28-2025 NoteQ3 Patient Name: Munira Chester Procedure Date: 07/13/2024 12:36 PM Date of : 1950 Admit Type: Outpatient Age: 73 Gender: Female Note Status: Finalized Attending MD: Kasey Fallon MD, [id number] Procedure: Lower Device-Assisted Enteroscopy without Fluoroscopy Indications: [...] Code(s): --- Professional --- (more content not included)...[facility]04-23-2025 NotePatient Education Urology Urinary Incontinence [...] stimulation). ? For women, using a medical orderly to prevent urine leaks. This is a [...] your health care provider (more content not included)...[facility] 07-06-2024 Nurse Note* Noemí William RN - 07/06/2024 1:25 PM EDT Attempted to reach the patient at the contact number that they provided [phone] (home) [phone] (work) . Unable to speak with patient so without identifying the patient the following information was left on their voice mail: Date of procedure, location and report time Prep instructions A message was left informing the patient/patient telephone service representative they must have a responsible adult [...] Number to call with questions or concerns [phone] Number to call to cancel their procedure [phone] Noemí William RN [facility]04-21-2025 Nurse Note* Noemí William RN - 07/06/2024 1:25 PM EDT Attempted to reach the patient at the contact number that they provided [phone] (home) [phone] (work) . Unable to speak with patient so without identifying the patient the following information was left on their voice mail: Date of procedure, location and report time Prep instructions A message was left informing the patient/patient telephone service representative they must have a responsible adult [...] Number to call with questions or concerns [phone] Number to call to cancel their procedure [phone] Noemí William RN documented in this encounterCincinnati Children'S [facility] Center04-16-2025 Telephone encounter Note * Telephone Encounter - Jacqueline Hong RN - 07/01/2024 3:45 PM EDT Prep question unable to take Gatorade / Message sent to referring [facility]04-16-2025 Miscellaneous Notes* Telephone Encounter - Jacqueline Hong RN - 07/01/2024 3:45 PM EDT Prep question unable to take Gatorade / Message sent to referring documented in this encounterCincinnati Children'S [facility] Center03-20-2025 NoteProgress Note-Physician Patient: MUNIRA CHESTER Age: 73 [...] Problems Urinary tract infection / SNOMED CT 333347759 / Confirmed Intrinsic sphincter deficiency (ISD) / SNOMED CT 9111338358 / Confirmed Urethral caruncle / SNOMED CT 52867598 / Confirmed Small bowel stricture / SNOMED CT 2748535045 / Confirmed Duodenal stricture / SNOMED CT 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 / Confirmed Recurrent UTI / SNOMED CT 843508901 / Confirmed Osteopenia of lumbar spine / SNOMED CT 632731265 / Confirmed Nocturia / SNOMED CT 207135715 / Confirmed Mild persistent asthma / SNOMED CT 2226639738 / Confirmed Migraine / SNOMED CT 08267116 / Confirmed Microscopic hematuria / SNOMED CT 858813927 / Confirmed Lumbar spondylosis / SNOMED CT 541644823 / Confirmed Urethral lesion / SNOMED CT 7873095105 / Confirmed Mixed incontinence / SNOMED CT 30906363 / Confirmed Hypertension / SNOMED CT 1028787435 / Confirmed Hyperlipidemia / SNOMED CT 21262409 / Confirmed Personal history of colonic polyps / SNOMED CT 9788124795 / Confirmed History of gastric ulcer / SNOMED CT 504012242 / Confirmed H/O gastric ulcer / SNOMED CT 621417120 / Confirmed Graves disease / SNOMED CT 643088153 / Confirmed GERD (gastroesophageal reflux disease) / SNOMED CT 886954205 / Confirmed Incomplete bladder emptying / SNOMED CT 210098385 / Confirmed Epigastric pain / SNOMED CT 510546366 / Confirmed Chronic tension headache / SNOMED CT 746597191 / Confirmed Cervical spondylosis / SNOMED CT 5837184392 / Confirmed Bilateral cataracts / SNOMED CT 720441229 / Confirmed Benign essential hypertension / SNOMED CT 6911792 / Confirmed Hypothyroidism, acquired, autoimmune / SNOMED CT 272326993 / Confirmed Asymptomatic microscopic hematuria / SNOMED CT 3525921249 / Confirmed Asthma / SNOMED CT 144195466 / Confirmed Arthritis / SNOMED CT 5333877 / Confirmed Acute allergic rhinitis due to pollen / SNOMED CT 45975483 / Confirmed Abdominal bloating / SNOMED CT 971529636 / Confirmed Resolved: Reflux of urine / SNOMED CT 3433415464 Histories Procedure history: Cystoscopy, urethral biopsy (267104392) on 04/07/2024 at 73 Years. Esophagogastroduodenoscopy (496110368) on 05/22/2023 at 72 Years. Colonoscopy (137926444) on 05/22/2023 at 72 Years. Colonoscopy (189781163) on 09/07/2019 at 69 Years. EGD - Esophagogastroduodenoscopy (3912950719) on 09/07/2019 at 69 Years. EGD - Esophagogastroduodenoscopy (6147595484) on 01/16/2015 at 64 Years. Colonoscopy (199626972) on 01/16/2015 at 64 Years. Comments: 08/31/2019 16:19 EDT - Tonie Barragan LPN normal EGD - Esophagogastroduodenoscopy (2053420267) on 08/17/2011 at 61 Years. EGD - Esophagogastroduodenoscopy (4830784997) on 05/17/2011 at 60 Years. Laparoscopic cholecystectomy (32414143) on 06/16/2010 at 59 Years. Colonoscopy (222658364) on 01/16/2010 at 59 Years. section (74692764). Rotator cuff repair (089183310). Tubal ligation (649922593). Cataracts (2004744226). Foot (40143212). Dilation and curettage (65171094). Thyroidectomy (56398495). Right wrist surgery (91591676). Social History Social & Psychosocial Habits Alcohol [...] Class III. Anesthetic Preoperative (more content not included)...[facility] Medical CenterComment on above:Result Comment: Electronically Signed By: Jay Jay Valderrama Jr, DO\.br\Date and Time Signed: 06/04/24 13:21 [id number] NoteProgress Note-Physician Patient: MUNIRA CHESTER Age: 73 [...] Discharge when meets criteria ( To home ).[facility] Medical CenterComment on above:Result Comment: Electronically Signed By: Jay Jay Valderrama Jr, DO\Date and Time Signed: 06/04/24 13:19 EDT 06-02-2024 Evaluation + Plan noteExtracted from:Title:EU- BulkamidAuthor:Asuncion Buchanan MDDate:06/02/24 Impression and Plan Diagnosis Intrinsic sphincter deficiency (ISD) (WIJ15-AA N36.42, Discharge, Medical). Diagnosis Intrinsic sphincter deficiency (ISD) (UKO75-XW N36.42, Discharge, Medical). Future Appointments Appointment Date:07/08/2024 09:00:00 AM Scheduled Provider:Asuncion Buchanan MD Location:[facility] Appointment Type:URO Office Visit [facility] [id number] Hospital Discharge instructions Patient Education 06/02/2024 09:00:02 Post Op Patient Instructions - FT (CUSTOM) 06/02/2024 08:43:01 [facility] - [facility] Post-Op Instructions (CUSTOM) [facility] [place], [place] Post-Operative Instructions for [facility] Congratulations on [...] may recommend a warm bath and/or an yfgw-nti-emhrtky pain medication to reduce discomfort. If you [...] physician for acomplete list of instructions. 2020 [employer]. All rights reserved. This material contains registered trademarks, trade names, and brand names of [employer]. [id number] 02/2021 [employer] , [place] [address] [email or web address] Follow Up Care 04/22/2024 11:39:53 With:Asuncion Buchanan Address: [facility] [address] [address]- [phone] Business (1) When: Unknown Comments:Call to schedule your follow up in 1 month for [facility] 03-18-2025 NotePatient Education - Text [facility] [place], [place] Post-Operative Instructions for Locqusamid Congratulations on starting your journey towards symptom [...] may recommend a warm bath and/or an xqah-foz-zcxyhmx pain medication to reduce discomfort. ??? If [...] for acomplete list of instructions. ??? 2020 [employer]. All rights reserved. This material contains registered trademarks, trade names, and brand names of [employer]. [phone] 02/2021 [email or web address] , [place] [address] [email or web address] [facility]03-07-2025 Telephone encounter Note* Telephone Encounter - Hollis Mckeon RN - 05/22/2024 11:40 AM EST Pt called, asked for return call. Called pt and question is what approval, upper or lower approvch for the enteroscopy procedure in June, she thought lower, but was told upper and concerned if lower, needs specific bowel prep, does better with miralax. Hollis Mckeon RN [facility] Work Phone: 1(234) 997-645603-07-2025 Miscellaneous Notes* Telephone Encounter - Hollis Mckeon RN - 05/22/2024 11:40 AM EST Pt called, asked for return call. Called pt and question is what approval, upper or lower approvch for the enteroscopy procedure in June, she thought lower, but was told upper and concerned if lower, needs specific bowel prep, does better with miralax. Hollis Mckeon RN documented in this encounterCincinnati Children'S [facility] Center02-13-2025 History of Present illness Narrative* Charito Vasquez MD - 04/30/2024 9:20 AM EST Munira Chester returns to the office today and notes that her cough has been very rare but she still has frequent sneeze. She is still on Xhance and this will be coming from [facility] soon. It will be800 USD per 3 months at [facility]. She has no wheeze or asthma symptoms. [...] sooner should problems arise. documented in this encounterBothwell Regional Health CenterOwovrjsggv01-70-6732 Hospital Discharge instructions Patient Education 04/22/2024 11:30:30 [...] nerve stimulation). ?For women, using a medical orderly to prevent urine leaks. This is a [...] right after experiencing incontinence. General instructions Take rvuu-lxd-xjtsqcs and prescription medicines only as told by [...] important. Where to find more information [employer] [place] of Diabetes and Digestive and Kidney Diseases: [...] provider. Document Revised: 10/07/2020 Document Reviewed: 10/07/2020 [employer] Patient Education 2023 [employer]. Follow Up Care 03/05/2024 08:53:11 With:Dewayne VILLEGAS, RANDAL Arizmendi, URO Address: When: Unknown [facility] Tariq 02-05-2025 NotePatient Education Urology Urinary [...] stimulation). ? For women, using a medical orderly to prevent urine leaks. This is a [...] your health care provider (more content not included)...[facility] 04-16-2024 History of Present illness Narrative* Madison [...] Mammogram 02/03/24 wnl, DEXA 02/05/23 osteopenia @ [place] Review of Systems - General: Chills denies. [...] Review Audit Reviewed by Renita Lucia MA (Disability Case Manager) on 04/16/24 at 1057 Medication Order Taking? Sig Documenting Provider Last Dose Status albuterol HFA 90 mcg/act inhaler [id number] No Inhale 2 puffs Madison Burns DO Taking Active amLODIPine (Norvasc) 5 MG tablet [id number] No Refills(s) 0 Madison Burns DO Taking Active atorvastatin (Lipitor) 10 MG tablet [id number] No 1 (one) time each day at the same time Madison Burns DO Taking Active azelastine (Astelin) 0.1 % nasal spray [id number] No Administer 2 sprays into each nostril in the morning and 2 sprays before bedtime. Use in each nostril as directed. Charito Vasquez MD Taking Active betamethasone valerate (Valisone) 0.1 % cream [id number] APPLY TO THE AFFECTED AREA TWICE A DAY Madison Burns DO Active betamethasone valerate (Valisone) 0.1 % ointment [id number] APPLY TO THE AFFECTED AREA EXTERNALLY TWOTIMES A DAY, REPLACES PREVIOUS SENT SCRIPT Madison Burns DO Active budesonide (Pulmicort) 0.5 MG/2ML nebulizer solution [id number] Take 2 mL (0.5 mg) by nebulization inthe morning. Rinse mouth with water after use to reduce aftertaste and incidence of candidiasis. Donot swallow.. Charito Vasquez MD Active cetirizine (ZyrTEC) 10 MG tablet [id number] Take 1 tablet (10 mg) by mouth Daily as needed for allergies Jeanette Luther MD Active doxycycline (Adoxa) 100 MG tablet [id number] No Take 100 mg by mouth in the morning and 100 mg beforebedtime. Take with a full glass of water and do not lie down for at least 30 minutes after. Jeanette Luther MD Taking Active EpiPen 2-Giovani 0.3 MG/0.3ML injection syringe [id number] No as directed Injection Juan Hutchison Active estradiol (Estrace) 0.1 MG/GM vaginal cream [id number] No See Instructions, 42.5 gm, Refill(s) 0, apply pea sized amount to urethra 2x/wk, [facility], 158, cm, 02/20/23 8:48:00 EST, Height/Length Dosing, 68.5, kg, 02/20/23 8:48:00 EST, Weight Dosing Madison Burns DO TakingActive famotidine (Pepcid) 20 MG tablet [id number] No Take by mouth Madison Burns DO Taking Active fluocinonide (Lidex) 0.05 % external solution [id number] No Apply to affected areas on the scalp, up to twice a day when flared, 30 day supply Ama Mclaughlin, JAELYN-JOSHUA Taking Active fluticasone (Flonase) 50 MCG/ACT nasal spray [id number] No Administer 2 sprays into each nostril Daily Shake gently. Before first use, prime pump. After use, clean tip and replace cap. Jeanette Luther MD Taking Active Fluticasone Propionate (Xhance) 93 MCG/ACT Exhaler Suspension [id number] Administer 1 spray into affected nostril(s) in the morning and 1 spray before bedtime. Charito Vasquez MD Active Fosamax 70 MG tablet [id number] No 1 tablet 30 minutes before the first food, beverage or medicine ofthe day with plain water Orally for 30 day(s) Madison Burns DO Taking Active guaiFENesin-codeine (Robitussin-AC) 100-10 MG/5ML syrup [id number] No Take 5 mL by mouth 3 (three) times a day as needed Taking Active levothyroxine (Synthroid, Levoxyl) 88 MCG tablet [id number] No 1 (one) time each day at the same timeMadison Burns DO Taking Active loratadine-pseudoephedrine ER (Claritin-D 12-hour) 5-120 MG 12 hr tablet [id number] No Take 1 tablet by mouth in the morning and 1 tablet before bedtime. Do not crush, chew, or split.. Charito Vasquez MD Taking Active metoclopramide (Reglan) 10 MG tablet [id number] No Take 10 mg by mouth in the morning and 10 mg at noon and 10 mg in the evening and 10 mg before bedtime. Taking Active montelukast (Singulair) 10 MG tablet [id number] No 1 (one) time each day at the same time Madison Burns DO Taking Active pantoprazole (ProtoNix) 40 MG EC tablet [id number] Take 1 tablet (40 mg) by mouth in the morning and 1 tablet (40 mg) before bedtime. Do not crush, chew, or split.. Charito Vasquez MD Active predniSONE (Deltasone) 20 MG tablet [id number] No Take 20 mg by mouth Daily Taking Active RA Vitamin D-3 50 MCG (1999) capsule [id number] No Take 50 mcg by mouth in the morning. Madison Almonte DO Taking Active Past Medical History: Diagnosis Date Abnormal Pap smear of cervix Arthritis Aspiration into airway, initial encounter Asthma ([facility]/HCC) Cataract Chronic hoarseness Episodic tension-type headache, not intractable 02/06/2016 GERD (gastroesophageal reflux disease) Graves disease (CMS/HCC) Hyperlipidemia (CMS/[facility]) Hypertension (CMS/HCC) Irritable bowel syndrome with predominant [...] Z78.0 DEXA bone density documented in this encounterBothwell Regional Health CenterFtmtecpsmc54-20-2298 NoteProgress Note-Physician Patient: MUNIRA CHESTER Age: 73 years Sex: Female : 1950 Associated Diagnoses: None Author: MD Camacho Ahmad F Postoperative Information Postoperative disposition: Postoperative disposition: To PACU. Optimetrix number: Optimetrix number [id number]. Anesthetic utilized: General. Health Status Allergies: Allergic [...] Discharge when meets criteria ( To home ).[facility] CenterComment on above:Result Comment: Electronically Signed By: MD [...] day(s), # 2 tab(s), Refills(s) 0, Pharmacy: [facility], 158, cm, 03/24/24 11:38:00 EST, Height/Length Dosing, 75.5, kg, 03/24/24 11:38:00 EST, Weight Dosing... Macrobid 100 mg Cap: 100 mg = 1 cap(s), Oral, As Directed, take 1 tablet within 1 hour before or after intercourse to prevent infection., # 30 cap(s), Refills(s) 3, Pharmacy: [facility], 158, cm, 02/20/23 8:48:00 EST, Height/Length Dosing, 68.5, kg,... Pantoprazole [address] Tab: 40 mg = 1 tab(s), Oral, Daily, # 90 tab(s), Refills(s) 1, Pharmacy: [facility] [facility], 154.9, cm, 12/11/19 9:26:00 EDT, Height/Length Dosing, 70.2, kg, 12/11/19 9:26:00 EDT, Weight Dosing estradiol 0.1 mg/g Vag Crm: See Instructions, 42.5 gm, Refill(s) 0, apply pea sized amount to urethra 2x/wk, [facility], 158, cm, 02/05/24 11:08:00 EST, Height/Length Dosing, 62, kg, 02/05/24 11:08:00 EST, Weight Dosing oxybutynin 5 mg Tab: 5 mg = 1 tab(s), Oral, TID, PRN bladder spasms, # 30 tab(s), Refills(s) 0, Pharmacy: [facility], 158, cm, 03/24/24 11:38:00 EST, Height/Length [...] of stomach acid fluticasone 0.05 mg/inh Nasal [place]: 2 spray(s), Nasal, Daily, Refill(s) 0 levothyroxine 100 mcg (0.1 mg) Tab: 100 mcg = 1 tab(s), Oral, Daily, Refills(s) 0, Thyroid montelukast 10 mg Tab: 10 mg = 1 tab(s), Oral, qPM, # 90 tab(s), Refills(s) 0, Asthma orphenadrine compounding powder: PRN Migraine headache, Refills(s) 0 Problem list: All Problems Acute allergic rhinitis due to pollen / SNOMED CT 16183101 / Confirmed Benign essential hypertension / SNOMED CT 3922473 / Confirmed GERD (gastroesophageal reflux disease) / SNOMED CT 678998951 / Confirmed Lumbar spondylosis / SNOMED CT 185242312 / Confirmed Cervical spondylosis / SNOMED CT 2230195604 / Confirmed History of gastric ulcer / SNOMED CT 216390388 / Confirmed Osteopenia of lumbar spine / SNOMED CT 093526496 / Confirmed Hyperlipidemia / SNOMED CT 66674606 / Confirmed Hypothyroidism, acquired, autoimmune / SNOMED CT 641270231 / Confirmed Chronic tension headache / SNOMED CT 468506790 / Confirmed Mild persistent asthma / SNOMED CT 1387226385 / Confirmed Bilateral cataracts / SNOMED CT 759233841 / Confirmed Migraine / SNOMED CT 29870441 / Confirmed Duodenal stricture / SNOMED CT 82787438 / Confirmed H/O gastric ulcer / SNOMED CT 251590738 / Confirmed Personal history of colonic polyps / SNOMED CT 0895632114 / Confirmed Epigastric pain / SNOMED CT 896416660 / Confirmed Abdominal bloating / SNOMED CT 147725581 / Confirmed Graves disease / SNOMED CT 841910879 / Confirmed Hypertension / SNOMED CT 7066407982 / Confirmed Asthma / SNOMED CT 027517782 / Confirmed Arthritis / SNOMED CT 4509904 / Confirmed Urinary tract infection / SNO (more content not included)...[facility] CenterComment on above:Result Comment: Electronically Signed By: MD Camacho Ahmad F\.br\Date and Time Signed: 04/07/24 17:50 [id number] Evaluation + Plan noteExtracted from:Title:ANES Post Op - GeneralAuthor:MD Camacho Ahmad F Date:04/07/24 Plan Transfer/Discharge: Transfer/Discharge Discharge when meets criteria ( To home ). 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 Urethral caruncle (ICG11-GA N36.2, Discharge, Medical). Diagnosis Urethral tumor (ABF59-PK D49.59, Discharge, Medical). Urethral caruncle (EFK52-CJ N36.2, Discharge, Medical). Extracted from:Title:ANES Pre Op - Adult GeneralAuthor:MD Doug, Ahohd F Date:04/07/24 Plan [place] [employer] Anesthesiologists (ASA) physical status classification: Class III. Anesthetic Preoperative Plan Anesthesia: General. . Anesthetic plan, risks, benefits, and alternatives discussed with the patient and/or family. Risks discussed: nausea, vomiting, headache, sore throat, dental injury, serious complications. Patient verbalized understanding. Communication: face to face with patient 5 minutes. Future Appointments Appointment Date:04/22/2024 10:45:00 AM Scheduled Provider:Asuncion Buchanan MD Location:[facility] Appointment Type:URO Office Visit [facility] 01-21-2025 Hospital Discharge instructions Patient Education 04/07/2024 10:47:43 White Catheter Care[place] [place] White Catheter Care, Female A [...] cotton underwear to absorb moisture and keep veneer redrier. 6. Keep the drainage bag below the [...] Instructions - FT (Custom) (CUSTOM) 04/07/2024 10:38:45 [place] - Post Op INstructions for Bladder Tumor, Bladder Biopsy (CUSTOM) [facility] [place], [place] Post-Operative Instructions *Even though there are [...] bleeding * AZO (phenazopyridine) can be purchased tczh-hwh-sgghuut for burning with urination. This will make [...] do not hear from us by tomorrow. ([phone] or [phone]) Follow Up Care 02/24/2024 10:45:49 With:Asuncion Buchanan Address: [place], [address] [address]- [phone] Business (1) When: Unknown Comments:Office to call to schedule your follow up: white removal and voiding trial in 1-2 days once urine is clear. Follow up in 1-2 weeks for pathology review. [facility] 01-21-2025 NotePatient Education - Text White Catheter [...] cotton underwear to absorb moisture and keep veneer redrier. 6. Keep the drainage bag below the [...] and call with any concerns. [facility] [place], [place] Post-Operative Ins (more content not included)...[facility] 02-24-2024 Evaluation + Plan noteExtracted from:Title:EU- Clinic [...] Date:03/24/2024 07:30:00 AM Scheduled Provider: Location:[facility] Appointment Type:Surgical PAT FT Appointment Date:04/07/2024 09:30:00 AM Scheduled Provider: Location:[facility] Appointment Type:Surgery FT Diagnostic Tests Pending * Urine Cytology ([facility]) 02/24/24 [facility] 12-09-2024 NoteProgress Note-Physician Patient: MUNIRA CHESTER Age: [...] infection., # 30 cap(s), Refills(s) 3, Pharmacy: [facility], 158, cm, 02/20/23 8:48:00 EST, Height/Length Dosing, 68.5, kg,... Pantoprazole [address] Tab: 40 mg = 1 tab(s), Oral, Daily, # 90 tab(s), Refills(s) 1, Pharmacy: [facility] [facility], 154.9, cm, 12/11/19 9:26:00 EDT, Height/Length Dosing, 70.2, kg, 12/11/19 9:26:00 EDT, Weight Dosing estradiol 0.1 mg/g Vag Crm: See Instructions, 42.5 gm, Refill(s) 0, apply pea sized amount to urethra 2x/wk, [facility], 158, cm, 02/05/24 11:08:00 EST, Height/Length [...] of stomach acid fluticasone 0.05 mg/inh Nasal [place]: 2 spray(s), Nasal, Daily, Refill(s) 0 levothyroxine [...] biopsy results. 3. Ure (more content not included)...[facility] CenterComment on above:Result Comment: Electronically Signed By: Dewayne VILLEGAS, Asuncion [place]\.melissa\Date and Time Signed: 02/24/24 12:[id number] Hospital Discharge instructions Patient Education 02/24/2024 10:20:28 [...] cysto, urethral biopsy with fulguration under anesthesia [facility] 12-09-2024 NotePatient Education Cystoscopy ??? Voiding after [...] if you have a fever over 100 degrees.[facility] 02-05-2024 Hospital Discharge instructions Patient [...] provider. Document Revised: 07/13/2021 Document Reviewed: 07/13/2021 [employer] Patient Education 2023 [employer]. Follow Up Care 02/20/2023 09:54:54 With:Dewayne VILLEGAS, Asuncion London, URL, URO Address: When: Unknown Comments:Schedule Cysto and Pelvic Exam [facility] 11-20-2024 NotePatient Education Obstetrics and Gynecology Kegel [...] provider. Document Revised: 07/13/2021 Document Reviewed: 07/13/2021 [employer] Patient Education ? 2023 [employer].[facility] 01-29-2024 History of Present illness [...] laser capsulotomy, they are to notify their interior decorator painting promptly if they have a significant change in symptoms, such as flashes of light (photopsia), an increase in floaters, loss of visual field or decrease in visual acuity. documented in this encounterBothwell Regional Health CenterIajhdyfgpf96-55-5809 Evaluation note* Diagnosis Onset Date Resolution Status Admit Date Asthma acuteNov2023 8:24amHypertensionacuteNov2023 8:24am HypothyroidismacuteNov2023 8:24amIron deficiency anemiaacuteFebruary 05, 2024 8:24amMedicare annual wellness visit, subsequentacuteFebruary 05, 2024 8:24amOsteoporosisacuteFebruary 05, 2024 8:24amScreening mammogram for breast canceracuteFebruary 05, 2024 8:24amSmall bowel strictureacuteFebruary 05, 2024 8:24am [facility] Work Phone: [phone]) 286-611910-14-2024 History of Present illness Narrative* Charito Vasquez [...] again at that time to see if [facility] pharmacy has been less expensive for her Xhance. documented in this [facility]10-11-2024 Instructions* Patient Instructions* Kasey Fallon MD - [...] am on dialysis? A: Please consult your presser cotton ginning prior to scheduling to get instructions pertinent to you. In general, dialysis patients take the [employer] bowel prep and have the procedure same [...] rest of the day. documented in this encounterCincinnati Children'S [facility] Medical Center10-11-2024 History of Present illness Narrative* Kasey Fallon [...] balloon enteroscopy Kasey Fallon MD 12/27/2023 Staff Grounds Manager Digestive Diseases and Surgery [facility] , REFERRING PROVIDER: [address] [facility] [address] REASON FOR REFERRAL: Small bowel stricture HISTORY: [...] Inhale 1 Inhalation as instructed once daily. Aadxypgmnx-Gdkbcfprztgdd-Wbrf (FIORICET) 50-300-40 mg cap Take by mouth. EPINEPHrine (EPIPEN) 0.3 mg/0.3 mL auto-injector Inject 0.3 mg intramuscularly as needed. fluticasone (FLONASE) 50 mcg/actuation nasal spray Use 1 [place] in each nostril once daily. atorvastatin (LIPITOR) [...] dilated small bowel. No visualized stricture. RESULT: Candy Cooker Helper radiograph shows no dilated bowel loops. [...] of records, and documentation. documented in this encounterCincinnati Children'S Hospital Medical Center10-11-2024 NoteHNO ID: [id number] Author: KASEY FALOLN MD Service: ? Author Type: Physician Type: [...] balloon enteroscopy Kasey Fallon MD 12/27/2023 Staff Grounds Manager Digestive Diseases and Surgery [facility] , REFERRING PROVIDER: [address] [facility] [address] REASON FOR REFERRAL: Small bowel stricture HISTORY: [...] Inhale 1 Inhalation as instructed once daily. Kaficomqmw-Cudoswgsprszw-Qkgv (FIORICET) 50-300-40 mg cap Take by mouth. EPINEPHrine (EPIPEN) 0.3 mg/0.3 mL auto-injector Inject 0.3 mg intramuscularly as needed. fluticasone (FLONASE) 50 mcg/actuation nasal spray Use 1 [place] in each nostril once daily. atorvastatin (LIPITOR) [...] History: S/p laparoscopic cholecystectomy (more content not included)...[facility]10-09-2024 Telephone encounter Note* Telephone Encounter - Hollis Mckeon RN - 12/25/2023 2:56 PM EDT Pt called and left VM, said had small bowel xray done, saw results and now questioning if still needs appt with Dr. Fallon, scheduled for 12/26, asking for return call to clarify if still needs to come or can cx. Call cell phone at [phone]. Hollis Mckeon RN [facility]10-09-2024 Miscellaneous Notes* Telephone Encounter - Hollis Mckeon RN - 12/25/2023 2:56 PM EDT Pt called and left VM, said had small bowel xray done, saw results and now questioning if still needs appt with Dr. Fallon, scheduled for 12/26, asking for return call to clarify if still needs to come or can cx. Call cell phone at [phone]. Hollis Mckeon, RN documented in this encounterCincinnati Children'S Hospital Medical Center10-08-2024 History of Present illness Narrative* Mary Jimenez [...] PATIENT PRESENTS WITH AN IMPLANTABLE OR ATTACHED UX DEVELOPER: No RADIOLOGY DEPARTMENT: General X-ray: Exam(s) Completed: GI/ Procedure(s): Small bowel series withbarium contrast PERIPHERAL IV DATA: Not applicable SIGNED BY: RT Adair(Peterson) December 24, 2023 2:19 PM documented in this encounterCincinnati Children'S Hospital Medical Center10-08-2024 NoteHNO ID: [id number] Author: MARY JIMENEZ RT(R) Service: Radiology Author [...] PATIENT PRESENTS WITH AN IMPLANTABLE OR ATTACHED UX DEVELOPER: No RADIOLOGY DEPARTMENT: General X-ray: Exam(s) Completed: GI/ Procedure(s): Small bowel series with barium contrast PERIPHERAL IV DATA: Not applicable SIGNED BY: Mary Jimenez RT(R) December 24, 2023 2:19 [facility]09-18-2024 Telephone encounter Note* Telephone Encounter - Hollis Mckeon RN - 12/04/2023 11:11 AM EDT Pt left VM and would like to reschedule GI test to earlier in week due to would like to come with her and drive and then maybe MD would also have test results before appt. Hollis Mckeon RN [facility]09-18-2024 Miscellaneous Notes* Telephone Encounter - Hollis Mckeon RN - 12/04/2023 11:11 AM EDT Pt left VM and would like to reschedule GI test to earlier in week due to would like to come with her and drive and then maybe MD would also have test results before appt. Hollis Mckeon RN documented in this encounterCincinnati Children'S Hospital Medical Center08-15-2024 Telephone encounter Note * Telephone Encounter - Rehana Hoang - 10/31/2023 9:30 AM EDT Patient called to see if you have received a fax from a Dr. Nettles's office for a pill cam? [facility]08-15-2024 Miscellaneous Notes* Telephone Encounter - Rehana Hoang - 10/31/2023 9:30 AM EDT Patient called to see if you have received a fax from a Dr. Nettles's office for a pill cam? documented in this encounterCincinnati Children'S Hospital Medical Center07-31-2024 Telephone encounter Note * Telephone Encounter - Hollis Mckeon RN - 10/16/2023 1:49 PM EDT Faxed referral received on 10/15/23 for pt sent from Dr. Ace from [employer] to attention Dr. Fallon, for pt for GI for consideration for double balloon enteroscopy. What records were received were scanned to chart. Hollis Mckeon RN [facility]07-31-2024 Miscellaneous Notes* Telephone Encounter - Hollis Mckeon RN - 10/16/2023 1:49 PM EDT Faxed referral received on 10/15/23 for pt sent from Dr. Ace from [employer] to attention Dr. Fallon, for pt for GI for consideration for double balloon enteroscopy. What records were received were scanned to chart. Hollis Mckeon RN documented in this encounterCincinnati Children'S Hospital Medical Center06-29-2024 History of Present illness Narrative* Jhonny Maher [...] contrast media, Iodine, Wasp venom, Amoxicillin, Sulfacetamide kgb-gwkpzb-lwhl, Penicillin, and Sulfa (sulfonamide antibiotics) Current Meds: [...] apply pea sized [facility]ra 2x/wk[facility], cm, 02/20/23 8:48:00 [...] at the same time, Disp: , Rfl: uigjnxqcjs-aqllmkomypacz-fbke (Fioricet) 50-300-40 mg capsule, Take by mouth., [...] LAD, no thyroid masses. SINONASAL ENDOSCOPY (CPT 01037): To better evaluate the patient's symptoms, sinonasal [...] given doxycycline and asked to begin dextromethorphan bcdd-wnr-getawma. 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 [...] moving forward. All questions were answered. Between pbbz-qt-uafa contact, review of the medical record, and documentation I spent 65 minutes onthis evaluation during the day of service. Signature: Jhonny Maher MD documented in this encounterClinton Memorial Hospital Work Phone: [phone] [id number] Mason from [facility] called stating that a referral was faxed ton August 25 for patient for a double balloon enteroscopy. Had spoken with Dayan previously as we don't do the double balloons but referring physician is fine with just a single balloon. Patient is wanting to go to [facility] where a double balloon can be done so disregard this referral.[facility]06-12-2024 NoteCalled and spoke with Dayan at [facility] regarding a referral that was sent on August 25 for this patient. In reading the notes she is being referred for a double balloon enteroscopy and our physicians only do single balloon's. She will check with Dr. Ace to see how he would like to proceed and let me know.[facility]03-07-2024 Note [id number] [facility] 05-22-2023 Hospital Discharge instructions Patient Education [...] unsweetened, w/added ascorbic acid 1 cup 0.5 Oldham 1 cup 0.7 Vegetables Cooked Green beans 1 cup 4.0 Carrots 1/2 cup sliced 2.3 Peas 1 cup 8.8 Potato (baked, with skin) 1 medium potato 3.8 Raw Martinez (with peel) 1 cucumber 1.5 Lettuce 1 [...] 8.7 Peanuts 1/2 cup 7.9 Chart from [facility] 2013. SEEK IMMEDIATE MEDICAL CARE IF: [...] Reference. Available at http://www.nal.usda.gov/fnic/foodcomp/search/. Information adapted from: [facility] Patient Information 2009 [employer]. [facility] 2012 http://www.[employer]/contents/dhmqjbtiodyk-zklnbdr-dlrvdf-the-basics 05/22/2023 08:58:41 Hemorrhoids, Tdql-ki-Ftrr Hemorrhoids Hemorrhoids are swollen veins that may [...] 3 times a day. General instructions Take chdp-nhj-ungksig and prescription medicines only as told by [...] provider. Document Revised: 09/13/2021 Document Reviewed: 09/13/2021 [employer] Patient Education 2022 [employer] 05/22/2023 08:58:37 Endoscopy, Care After Procedure [facility] Endoscopy Care After Procedure Please read the instructions outlined below and refer to this sheet in the next few weeks. These discharge instructions provide you with general information on caring for [facility] Your doctor may also give you specific [...] blood. Document Released: 10/16/2004 Document Re-Released: 08/26/2006 Bum[employer] Patient Information Rowl. 05/22/2023 08:58:29 Hiatal Hernia Hiatal Hernia A [...] reduce GERD symptoms. Medicines. These may include: ?Vacn-iwm-zljjtlm antacids. ?Medicines that make your stomach empty [...] may include: ?Fatty foods, like fried foods. ?[place] fruits, like oranges or lemon. ?Other foods [...] Do not drink alcohol. General instructions Take volc-myx-lqigsmk and prescription medicines only as told by [...] provider. Document Revised: 05/01/2022 Document Reviewed: 05/01/2022 [employer] Patient Education 2022 [employer]. Follow Up Care 05/14/2023 13:37:06 With:Tho VILLEGAS, RUBA Villanueva, [facility] Address: When: Unknown Comments:Call for any problems. The office will reach out in about one week from procedure date. [facility]02-05-2024 Evaluation note* Encounter Date Diagnosis Assessment Notes Treatment Notes Treatment Clinical Notes Apr, Moderate persistent asthma witho ut complication (ICD-10 - J45.40) [employer] Other 02-02-2024 Evaluation note* Encounter Date Diagnosis Assessment Notes Treatment Notes Treatment Clinical Notes Apr, Moderate persistent asthma with acute exacerbation (ICD-10 - J45.41) [employer] Other 01-30-2024 Evaluation note* Encounter Date Diagnosis [...] Claritin, Singulair and Flonase Scheduled to see insurance verification rep. Mar,Gastroesophageal reflux disease with esophagitis without hemorrhage (ICD-10 - K21.00)Avoid lying flat after eating. Avoid eating 2 hours prior to bedtime. Smaller, frequent meals may be better tolerated.Weight loss if overweight.PPI with any heartburn.Monitor for dysphagia. 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 ronic blood loss (ICD-10 - D50.0) [employer] Other 12-22-2023 Evaluation note* Encounter Date Diagnosis Assessment Notes Treatment Notes Treatment Clinical Notes Feb, Iron deficiency anemia due to ch ronic blood loss (ICD-10 - D50.0) [employer] Other 12-20-2023 Evaluation note* Encounter Date Diagnosis Assessment Notes Treatment Notes Treatment Clinical Notes Feb, Anemia (ICD-10 - D64.9) [employer] Other 12-11-2023 Evaluation note* Encounter Date Diagnosis Assessment Notes Treatment Notes Treatment Clinical Notes Feb, Moderate persistent asthma witho ut complication (ICD-10 - J45.40) [employer] Other 12-06-2023 Hospital Discharge instructions Patient Education [...] relieve pelvic muscle tension or spasms. Take wiod-slc-pnkljcv and prescription medicines only as told by [...] provider. Document Revised: 07/12/2021 Document Reviewed: 07/12/2021 [employer] Patient Education 2022 [employer]. 02/20/2023 09:44:59 Kegel Exercises Kegel Exercises Kegel [...] provider. Document Revised: 07/13/2021 Document Reviewed: 07/13/2021 [employer] Patient Education 2022 [employer]. Follow Up Care 01/31/2022 08:50:25 With:Dewayne VILLEGAS, RANDAL Arizmendi, [facility] Address: [address] [place] [address] [phone] When: Unknown Comments:1 yr [facility] 12-04-2023 Evaluation note* Encounter Date Diagnosis Assessment Notes Treatment Notes Treatment Clinical Notes Feb, Moderate persistent asthma with acute exacerbation (ICD-10 - J45.41) Holding Breo for trial of Trelegy. Avoid dust, mold, fumes as much as possible. Steroid taper to break cycle of coughing Refer to Director Ambulatory and Statistical Modeler when stable Feb,Non-seasonal allergic rhinitis due to other allergic trigger (ICD-10 - J30.89)Continue FLonase NS Add Astepro NS Continue Claritin and Singulair Feb,astroesophageal reflux disease with esophagitis without hemorrhage (ICD-10 - K21.00)Diet instructions: Smaller portions, avoid eating and laying flat, avoid eating or drinking prior to bedtime. Weight loss. Continue PPI [employer] Other 11-21-2023 Evaluation note* Encounter Date Diagnosis Assessment Notes Treatment Notes Treatment Clinical Notes Jan, Age-related osteopor osis without current pathological fracture (ICD-10 - M81.0) Jan,Hypercholesteremia (ICD-10 - E78.00) [employer] Other 11-14-2023 Evaluation note* Encounter Date Diagnosis Assessment Notes Treatment Notes Treatment Clinical Notes Jan, Menopause (ICD-10 - Z78.0) [employer] Other 11-10-2023 Evaluation note* Encounter Date Diagnosis Assessment Notes Treatment Notes Treatment Clinical Notes Jan, Hypercholesteremia (ICD-10 - E78 .00) [employer] Other 11-10-2023 Evaluation note* Encounter Date Diagnosis [...] much improved. Offered PFT and referral to Statistical Modeler. Jan,utoimmune thyroiditis (ICD-10 - E06.3)Clinically euthyroid, TSH [...] Jan,AD (generalized anxiety disorder) (ICD-10 - F41.1) [employer] Other 09-27-2023 Evaluation note* Encounter Date Diagnosis Assessment Notes Treatment Notes Treatment Clinical Notes Nov, Moderate persistent asthma with acute exacerbation (ICD-10 - J45.41) Reviewed medication - continue LABA/ICS and NIKO - continue Singulair, Claritin and Flonase Suggested short course of Steroids and antibiotics. Discussed use of LAMA in combination of what she is presently taking CXR if no improvement [employer] Other 08-23-2023 Evaluation note* Encounter Date Diagnosis Assessment Notes Treatment Notes Treatment Clinical Notes Oct, Mild persistent asthma, uncompli cated (ICD-10 - J45.30) [employer] Other 08-17-2023 Evaluation note* Encounter Date Diagnosis [...] understanding and is agreeable to treatment plan [employer] Other 04-12-2023 NotePROCEDURE: XR FOOT RT MIN [...] by: JEROME ESPINOSA Date: 2022-06-27 15:36[facility]03-02-2023 NotePROCEDURE: XR FOOT RT MIN 3 [...] by: CAMPOS ERAZO Date: 2022-05-17 16:27[facility]02-09-2023 NotePROCEDURE: XR FOOT RT MIN 3 [...] by: JEROME ESPINOSA Date: 2022-04-26 09:37[facility]01-19-2023 NotePROCEDURE: XR FOOT RT MIN 3 [...] by: JEROME ESPINOSA Date: 2022-04-05 14:43[facility]01-19-2023 NotePROCEDURE: XR FOOT RT 2V HISTORY: [...] by: JEROME ESPINOSA Date: 2022-04-05 14:41[facility]01-11-2023 NotePROCEDURE: XR FOOT RT MIN 3 [...] by: JEROME ESPINOSA Date: 2022-03-28 10:17[facility]12-26-2022 NotePROCEDURE: XR FOOT RT MIN 3 [...] by: JEROME ESPINOSA Date: 2022-03-12 09:46[facility]12-19-2022 Evaluation note* Encounter Date Diagnosis Assessment Notes Treatment Notes Treatment Clinical Notes Feb, Acute pain of left shoulder (ICD -10 - M25.512) Feb,Tear of left supraspinatus tendon (ICD-10 - M75.102)A 1/1cc marcaine / kenalog cortisone injection was performed into the subacromial space under sterile technique. Patient tolerated the injection well with no adverse reaction. [employer] Other 09-16-2022 Hospital Discharge instructions Patient Education [...] nerve stimulation). For women, using a medical orderly to prevent urine leaks. This is a [...] right after experiencing incontinence. General instructions Take oqin-ujm-ptauqwz and prescription medicines only as told by [...] 04/11/2005 Document Revised: 03/14/2018 Document Reviewed: 06/13/2017 [employer]Ring Patient Education 2020 [employer]. Follow Up Care 10/20/2021 08:23:44 With:Asuncion Buchanan MD, URL, URO Address: When: Unknown [facility] 2022 Evaluation note* Encounter Date Diagnosis [...] the injection well with no adverse reaction. [employer] Other Evaluation + Plan note Future Appointments Appointment Date:01/31/2022 08:00:00 AM Scheduled Provider:Asuncion Buchanan MD Location:[facility] Appointment Type:URO Office Visit [facility] Evaluation + Plan note Future Appointments Appointment Date:02/19/2024 08:00:00 AM Scheduled Provider:Asuncion Buchanan MD Location:[facility] Appointment Type:URO Office Visit [facility] evaluation + Plan note Future Appointments Appointment Date:05/22/2023 08:00:00 AM Scheduled Provider: Location:[facility] Appointment Type:Surgery FT Appointment Date:02/19/2024 08:00:00 AM Scheduled Provider:Asuncion Buchanan MD Location:[facility] Appointment Type:URO Office Visit [facility] Evaluation + Plan note Future Appointments Appointment Date:07/23/2023 08:00:00 AM Scheduled Provider[facility] Type:CT Sinus/Orbits/Maxillofacial (FT) Appointment Date:02/19/2024 08:00:00 AM Scheduled Provider:Asuncion Buchanan MD Location:[facility] Appointment Type:URO Office Visit Future Scheduled Tests Radiology* XR Abdomen 1 View 07/04/23 * CT Maxillofacial w/o Contrast 07/23/23 [facility] Evaluation + Plan note Future Appointments Appointment Date:07/23/2023 08:00:00 AM Scheduled Provider: [facility] Type:CT Sinus/Orbits/Maxillofacial (FT) Appointment Date:02/19/2024 08:00:00 AM Scheduled Provider:Asuncion Buchanan MD Location:[facility] Appointment Type:URO Office Visit Future Scheduled Tests Radiology* CT [facility]illofacial w/o Contrast [facility] Appointment Date:07/23/2023 08:00:00 AM Scheduled Provider: [facility] Type:CT Sinus/Orbits/Maxillofacial (FT) Appointment Date:08/15/2023 08:15:00 AM Scheduled Provider:Del Nettles MD [place] Type:[facility] Follow Up Appointment Date:02/19/2024 08:00:00 AM Scheduled Provider:Asuncion Buchanan MD Location:[facility] Appointment Type:URO Office Visit Future Scheduled Tests Radiology* CT Maxillofacial w/o Contrast 07/23/23 [facility] Evaluation + Plan note Future Appointments Appointment Date:08/15/2023 08:15:00 AM Scheduled Provider:Del Nettles MD [place] Appointment Type:[facility] Follow Up Appointment Date:02/19/2024 08:00:00 AM Scheduled Provider:Asuncion Buchanan MD Location:[facility]ment [facility] App[facility]ments Appointment Date:02/05/2024 10:45:00 AM Scheduled Provider:Asuncion Buchanan MD Location:[facility] Appointment Type:URO Office Visit [facility] evaluation + Plan note Future Appointments Appointment Date:02/05/2024 10:45:00 AM Scheduled Provider:Asuncion Buchanan MD Location:[facility] Appointment Type:URO Office Visit Diagnostic Tests Pending * Urine Culture 12/27/23 [facility] Evaluation + Plan note Future Appointments Appointment Date:02/17/2024 09:00:00 AM Scheduled Provider: Location:[facility] Appointment Type:Urology CALL PAT FT Appointment Date:02/24/2024 09:30:00 AM Scheduled Provider: Location:[facility] Appointment Type:Urology FT [facility] evaluation + Plan note Future Appointments Appointment Date:04/07/2024 09:30:00 AM Scheduled Provider: Location:[facility] Appointment Type:Surgery FT Appointment Date:04/22/2024 10:45:00 AM Scheduled Provider:Asuncion Buchanan MD Location:[facility] Appointment Type:URO Office Visit Diagnostic Tests Pending * Urine Culture 03/24/24 [facility] Evaluation + Plan note Future Appointments Appointment Date:04/22/2024 10:45:00 AM Scheduled Provider:Asuncion Buchanan MD Location:[facility] Appointment Type:URO Office Visit [facility] evaluation + Plan note Future Appointments Appointment Date:05/20/2024 07:30:00 AM Scheduled Provider: Location:[facility] Appointment Type:Surgical PAT FT Appointment Date:06/02/2024 09:30:00 AM Scheduled Provider: Location:[facility] Appointment Type:Surgery FT [facility] evaluation + Plan note Future Appointments Appointment Date:06/02/2024 09:30:00 AM Scheduled Provider: Location:[facility] Appointment Type:Surgery FT Diagnostic Tests Pending * Urine Culture 05/20/24 [facility] Evaluation + Plan note Future Appointments Appointment Date:11/05/2024 08:15:00 AM Scheduled Provider:Del Nettles MD [place] Appointment Type:BAD Follow Up [facility] Evaluation noteNo InformationNort Interface21 Other Evaluujvyq noteNo assessment information [facility] Work Phone: Evaluthqmx note* Diagnosis Other partial intestinal obstruction (HCC)- Primary [facility]* Diagnosis Other partial intestinal obstruction (HCC) [facility]* Diagnosis Iron deficiency anemia due to chronic blood loss- Primary Iron deficiency anemia secondary to blood loss (chronic) Abnormal finding on GI tract imaging Nonspecific (abnormal) findings on radiological and other examination of gastrointestinal tract documented [facility]* Diagnosis Chronic maxillary sinusitis- Primary Chronic pansinusitis Other chronic sinusitis documented in [facility] encounter [facility]* Diagnosis Keratoconjunctivitis sicca of both eyes not specified as Sjogren's- Primary Blepharitis of upper and lower eyelids of both eyes, unspecified type Bilateral posterior capsular opacification Unspecified after-cataract [facility] Diagnosis Chronic maxillary sinusitis- Primary Chronic ethmoiditis Chronic ethmoidal sinusitis Chronic cough Cough Asthma, unspecified asthma severity, unspecified whether complicated, unspecified whether persistent (HHS-HCC) documented in this encounter [facility] Work Phone: Evaluation note* Diagnosis Encounter for gynecological examination without abnormal finding Screening for malignant neoplasm of cervix Screening for malignant neoplasm of the cervix Encounter for screening mammogram for breast cancer Lichen sclerosus et atrophicus Circumscribed scleroderma Screening for osteoporosis Special screening for osteoporosis Postmenopausal status, age-related documented in this encounter [facility]* Diagnosis Chronic maxillary sinusitis- Primary documented in this encounter [facility]* Diagnosis Iron deficiency anemia due to chronic blood loss Iron deficiency anemia secondary to blood loss (chronic) Abnormal finding on GI tract imaging Nonspecific (abnormal) findings on radiological and other examination of gastrointestinal tract documented [facility]* Diagnosis 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 [facility]* Diagnosis Onset Date Resolution Status Admit Date Osteoporosis acuteOctober 2024 9:42am [facility] Work Phone: Evaluation note* Diagnosis Peripheral eosinophilia- Primary Chronic maxillary sinusitis Cough variant asthma (HCC) Cough variant asthma [facility] N[facility]ative - Reported* Type Description Date Medical History high cholestrol Medical Historygraves diseaseMedical HistoryasthmaMedical HistoryulcerMedical Historymigranes and tension headachesMedical HistoryarthritisMedical History osteoporosisSurgical Historyd and cSurgical Historyc sectionsSurgical History torn right wrist cartligeSurgical Historynuclear med to kill thyroidSurgical Historycolonoscopy and egdSurgical Historygall bladder removedSurgical History tubal ligationSurgical Historyrotator cuff and bicep ainlia08/2019 Hospitalization Historysee aboveHospitalization Historyblood transfusion from bleeding ulcer [employer] Other History general Narrative - Reported* Type Description Date Medical History high cholestrol Medical Historygraves diseaseMedical HistoryasthmaMedical HistoryulcerMedical Historymigranes and tension headachesMedical HistoryarthritisMedical History osteoporosisSurgical Historyd and cSurgical Historyc sectionsSurgical History torn right wrist cartligeSurgical Historynuclear med to kill thyroidSurgical Historycolonoscopy and egdSurgical Historygall bladder removedSurgical History tubal ligationSurgical Historyrotator cuff and bicep acfqxh73/2019Surgical HistoryORIF right 5th MT fracture04/06/22Hospitalization Historysee above Hospitalization Historyblood transfusion from bleeding ulcer 91JinRong Other History general Narrative - Reported* Type Description Date Medical History high cholestrol Medical Historygraves diseaseMedical HistoryasthmaMedical HistoryulcerMedical Historymigranes and tension headachesMedical HistoryarthritisMedical History osteoporosisMedical HistoryRight metatarsal fracture - 03/2022Surgical Historyd and cSurgical Historyc sectionsSurgical Historytorn right wrist cartligeSurgical Historynuclear med to kill thyroidSurgical Historycolonoscopy and egdSurgical Historygall bladder removedSurgical Historytubal ligationSurgical Historyrotator cuff and bicep /2019Surgical HistoryORIF right 5th MT fracture04/06/22 Hospitalization Historysee aboveHospitalization Historyblood transfusion from bleeding ulcer 91JinRong Other [facility] general Narrative - Reported* Type Description Date Medical History high cholestrol Medical Historygraves diseaseMedical HistoryasthmaMedical HistoryulcerMedical Historymigranes and tension headachesMedical HistoryarthritisMedical History osteoporosisMedical HistoryRight metatarsal fracture - 03/2022Surgical Historyd and cSurgical Historyc sectionsSurgical Historytorn right wrist cartligeSurgical Historynuclear med to kill thyroidSurgical Historycolonoscopy and egdSurgical Historygall bladder removedSurgical Historytubal ligationSurgical Historyrotator cuff and bicep [id number]/2019Surgical HistoryORIF right 5th MT fracture04/06/22 Surgical Historycataract b/lHospitalization Historysee aboveHospitalization Historyblood transfusion from bleeding ulcer 91JinRong Other History general Narrative - Reported* Type Description Date Medical History high cholestrol Medical Historygraves diseaseMedical HistoryasthmaMedical HistoryulcerMedical Historymigranes and tension headachesMedical HistoryarthritisMedical History osteoporosisMedical HistoryRight metatarsal fracture - 03/2022Surgical Historyd and cSurgical Historyc sectionsSurgical Historytorn right wrist cartligeSurgical Historynuclear med to kill thyroidSurgical HistoryEGD, [id number] Historygall bladder removedSurgical Historytubal ligationSurgical Historyrotator cuff and bicep krzpyn05/2019Surgical HistoryORIF right 5th MT fracture04/06/22 Surgical Historycataract b/lHospitalization Historysee aboveHospitalization Historyblood transfusion from bleeding ulcer 91JinRong Other Hospital course Narrative No data available for this section [facility] [employer] [facility] Discharge instructions No data available for this section [facility] Progress note No data available for this section [facility] [employer] Reason for referral (narrative)* Reason *FU 04/23 Referral for iron deficiency anemia. Diagnosis 1 Iron deficiency anem ia secondary to inadequate dietary iron intake (D50.8) Referral Organization [facility] kenny Referring Provider First Name Andrea Referring Provider Last Name [place] Referring Provider Specialty Internal [facility] Referred Organization [facility] Referred Provider CHRISSY HECTOR Referred Address [address], [place],[address] Referred Provider Specialty Hematology Referral Priority Routine [...] referral faxed Clinical NotesInclude labs results p: [phone] f: [id number] Reason Referral for pe rsistent cough and wheezing Diagnosis 1 Moderate persistent asthma with acute exacerbation (J45.41) Referral Organization [facility] [place] cox Referring Provider First Name Andrea Referring Provider Last Name [place] Referring Provider Specialty Internal Me dicine Referred Organization [facility] Referred Provider Edouard Espinosa Referred Address [address], [place],[address] Referred Provider Specialty Pulmonary Di seases Referral Priority Routine General Notes Patient w/ allergic rhinitis and asthma w/ deterioration of her symptoms over the past year. Her medications have been maximized and alternative etiology for cough and wheezing addressed. She has been referred to an Director Ambulatory for evaluation and scheduled for a PFT. Alla Castillo 04/16/2023 10:39:47 AM >received today, waiting for notes to be locked, and for CXR LABS AND PFT TO BE COMPLETED Shannan Weinberg 04/18/2023 09:54:53 AM > Patient is [facility] NotesInclude CXR, labs and PFT when completed Reason *FU 04/24 Referral for opinion on further testing for iron deficiency anemia Diagnosis 1 Iron deficiency anem ia secondary to inadequate dietary iron intake (D50.8) Referral Organization [facility] [place] co[place] Referring Provider First Name Andrea Referring Provider Last Name [place] Referring Provider Specialty Internal Me dicine Referred Organization [facility] Referred Address [address] [address] [address],[place], [place],[address] Referred Provider Specialty Gastroentero logy Referral Priority [...] attachments made, notes locked, referral faxedClinical Notesf: [id number] [employer] Interface21 Other Reason for referral (narrative)* Reason *FU 04/23 Referral for iron deficiency anemia. Diagnosis 1 Iron deficiency anem ia secondary to inadequate dietary iron intake (D50.8) Referral Organization [facility] [employer] kenny Referring Provider First Name Andrea Referring Provider Last Name [place] Referring Provider Specialty Internal Me dicine Referred Organization [facility] Referred Provider CHRISSY HECTOR Referred Address [address], [place],[address] Referred Provider Specialty Hematology Referral Priority Routine [...] referral faxed Clinical NotesInclude labs results p: [phone] f: [phone] Reason Referral for pe rsistent cough and wheezing Diagnosis 1 Moderate persistent asthma with acute exacerbation (J45.41) Referral Organization [facility] [employer] Referring Provider First Name Andrea Referring Provider Last Name [place] Referring Provider Specialty Internal Ne dicine Referred Organization [facility] Referred Provider Edouard Espinosa Referred Address [address] [place], [place],[address] Referred Provider Specialty Pulmonary Di seases Referral Priority Routine General Notes Patient w/ allergic rhinitis and asthma w/ deterioration of her symptoms over the past year. Her medications have been maximized and alternative etiology for cough and wheezing addressed. She has been referred to an [facility] Amb[facility] for evaluation and scheduled for a PFT. Alla Castillo 04/16/2023 10:39:47 AM >received today, waiting for notes to be locked, and for CXR LABS AND PFT TO BE COMPLETEDClinical NotesInclude CXR, labs and PFT when completed Reason Referral for opinion on further testing for iron deficiency anemia Diagnosis 1 Iron deficiency anem ia secondary to inadequate dietary iron intake (D50.8) Referral Organization [facility] kenny Referring Provider First Name Andrea Referring Provider Last Name [place] Referring Provider Specialty Internal Me dicine Referred Organization [facility] Referred Address [address] [facility] [address],[place], [place],[address] Referred Provider Specialty Gastroentero logy Referral Priority [...] to Hematology for IV iron and evaluation. [id number] Other Reason for referral (narrative)* Diagnostic Procedure Only (Routine) - ClosedSpecialtyDiagnoses / ProceduresReferred By Contact Referred To ContactXR IMAGING Diagnoses Other partial intestinal obstruction (HCC) Procedures XR SMALL BOWEL SERIES RADIOLOGIC EXAM SMALL INT SINGLE CONTRAST STUDY Kasey Fallon [facility] [address] [place], [place] [id number] Xr Imaging [place] [address] Referral IDStatusReasonStart DateExpiration DateVisits RequestedVisits [id number] Auto-Generated Referral [facility] for referral (narrative)* Outpatient Procedure (Routine) - New RequestSpecialtyDiagnoses / ProceduresReferred By ContactReferred To [facility]WE[facility] Diagnoses Iron deficiency anemia due to chronic blood loss Abnormal finding on GI tract imaging Procedures ENTEROSCOPY ENTEROSC >2ND PRTN W/ILEUM W/BX SINGLE/MULTIPLE UNLISTED PROCEDURE SMALL INTESTINE Kasey Fallon [facility] [address] [place] [address] [facility] [address] [place] [address] Referral IDStatusReasonStart DateExpiration DateVisits RequestedVisits [id number] Request Auto-Generated Referral [facility] CenterReason for referral (narrative)No reason for referral information availableMartin Memorial Hospital Work Phone: Reason for visit Narrative* Outpatient Procedure (Routine) - ClosedSpecialtyDiagnoses / ProceduresReferred By ContactReferred To [facility] Diagnoses Iron deficiency anemia due to chronic blood loss Abnormal finding on GI tract imaging Procedures ENTEROSCOPY ENTEROSC >2ND PRTN W/ILEUM W/BX SINGLE/MULTIPLE UNLISTED PROCEDURE SMALL INTESTINE [place] [address] Phone: tel: fax: [facility] [address] [place] [address] Referral IDStatusReasonStindiahoma DateExpiration DateVisits RequestedVisits [id number] Auto-Generated Referral [facility] Chief Complaint and Reason for Visit Chief [...] Fallon MD [facility] [address] [place], [place] [phone] Ct Imaging [place] [address] Referral IDStatusReasonStindiahoma DateExpiration DateVisits RequestedVisits [id number] Request Auto-Generated Referral / Additional Source Comments REASON FOR VISIT (unrecogniz ed section and content) ReasonCommentsConsultReasonCommentsPatient QuestionReasonCommentshelp rescheduling GI testReasonCommentsRadio GI Main ZR7MugsyhmeyFsnkjtifa / ProceduresReferred By ContactReferred To ContactXR IMAGING Diagnoses Other partial intestinal obstruction (HCC) Procedures XR SMALL BOWEL SERIES RADIOLOGIC EXAM SMALL INT SINGLE CONTRAST STUDY Kasey Fallon MD [facility] [address] [place] [address] Xr Imaging [place] [address] Referral IDStatusReasonStindiahoma DateExpiration DateVisits RequestedVisits [id number] Auto-Generated Referral [id number] PatientDouble balloonReasonComments Follow-upPt here for follow up [...] referring physician regarding a substitute for GatoradeReasonOnset KhdePfslbwfhbjbbtp13/14/2025 ReasonCommentsFollow-upApril 2024 Colonoscopy, July 2024 bladder bulking [...] MemberRelationshipSpecialtyStart DateEnd Date Andrea Golden MD [address] [facility] [place] [address] PCP - GeneralInternal Medicine08/27/22 Team Status: Inactive Member Role Status Dates Andrea Golden DO Attending Provider Active Sta rt: April 16, 2023 End: April 16, 2023Team MemberRelationshipSpecialtyStart DateEnd Date Andrea Golden DO [address] [place] [address] PCP - GeneralInternal Ajemvbhg91/11/24 Jones Ace MD [address] [place] [address] Internal Bwnaqxhk55/11/24 Chrissy Hector MD [address] [address] Hematology/Draxphck82/11/24Team MemberRelationshipSpecialtyStart DateEnd Date Andrea Golden MD PCP [...] End Date Andrea Golden DO [address] [place] [address] PCP - GeneralInternal Mjfumxyj57/11/24 Jones Ace MD [address] [place] [address] Internal Mprvxapk07/11/24 Chrissy Hector MD [address] [place] [address] Hematology/Vpdovgvl52/11/24Team MemberRelationshipSpecialtyStart DateEnd Date Andrea Golden DO [address] [place] [address] PCP - GeneralInternal Fvfcgvyf40/11/24 Jones Ace MD [address] [place] [address] Internal Ljakfzrr43/11/24 Chrissy Hector MD [address] [place] [address] Hematology/Zeczkdtg81/11/24Team MemberRelationshipSpecialtyStart DateEnd Date Andrea Golden DO [address] [place] [address] PCP - GeneralInternal Mdnykqmu84/11/24 Jones Ace MD [address] [place] [address] Internal Rvkyzqwp15/11/24 Chrissy Hector MD [address] [facility] [place] [address] Hematology/Jpuezuve06/11/24Team MemberRelationshipSpecialtyStart DateEnd Date Andrea Golden DO [address] [place] [facility] [place] [address] PCP - GeneralInternal Cusnqtep55/11/24 Jones Ace MD [address] [place] [address] Internal Sqvgpnod87/11/24 Chrissy Hector MD [address] [facility] [place] [address] Hematology/Twgcdjqp75/11/24Team MemberRelationshipSpecialtyStart DateEnd Date Andrea Golden DO [address] [place] [facility] [place] [address] PCP - GeneralInternal Shwmaxkz33/11/24 Jones Ace MD [address] [place] [address] Internal Ajljfhhs40/11/24 Chrissy Hector MD [address] [facility] [place] [address] Hematology/Xlggtlas51/11/24Team MemberRelationshipSpecialtyStart DateEnd Date Andrea Golden DO [address] [place] [address] PCP - GeneralInternal Dhbbozrn01/11/24 Jones Ace MD [address] [place] [address] [address] [place] [address] Internal Okxoqbjt38/11/24 Chrissy Hector MD [address] [place] [address] Hematology/Cvmgkich30/11/24Team MemberRelationshipSpecialtyStart DateEnd Date Andrea Golden DO PCP [...] Team Status: Active Member Role/Relationship Status Dates Andera DO [place] Primary Care Provider Active Start: [...] content) DATE CREATED AUTHOR 07/02/2022 [facility] DATE CREATED AUTHOR AUTHOR'S ORGANIZ ATION 09/07/2023 [facility] DATE CREATED AUTHOR AUTHOR'S ORGANIZ ATION 09/15/2023 [facility] DATE CREATED AUTHOR AUTHOR'S ORGANIZ ATION 10/12/2023 [facility] DATE CREATED AUTHOR AUTHOR'S ORGANIZ ATION 11/10/2023 [facility] DATE CREATED AUTHOR AUTHOR'S ORGANIZ ATION 01/01/2024 [facility] DATE CREATED AUTHOR AUTHOR'S ORGANIZ ATION 02/08/2024 [facility] DATE CREATED AUTHOR AUTHOR'S ORGANIZ ATION 02/27/2024 [facility] DATE CREATED AUTHOR AUTHOR'S ORGANIZ ATION 03/30/2024 [facility] DATE CREATED AUTHOR AUTHOR'S ORGANIZ ATION 03/31/2024 [facility] DATE CREATED AUTHOR AUTHOR'S ORGANIZ ATION 04/10/2024 [facility] DATE CREATED AUTHOR AUTHOR'S ORGANIZ ATION 04/19/2024 [facility] DATE CREATED AUTHOR AUTHOR'S ORGANIZ ATION 04/24/2024 [facility] DATE CREATED AUTHOR AUTHOR'S ORGANIZ ATION 05/21/2024 [facility] DATE CREATED AUTHOR AUTHOR'S ORGANIZ ATION 05/22/2024 [facility] DATE CREATED AUTHOR AUTHOR'S ORGANIZ ATION 05/24/2024 [facility] DATE CREATED AUTHOR AUTHOR'S ORGANIZ ATION 07/23/2024 [facility] DATE CREATED AUTHOR AUTHOR'S ORGANIZ ATION 12/18/2024 [facility] DATE CREATED AUTHOR AUTHOR'S ORGANIZ ATION 12/29/2024 [facility] DATE CREATED AUTHOR AUTHOR'S ORGANIZ ATION 01/27/2025 [facility] Source Comments (unrecognize d section and content) In the event this informatio n is protected by the Federal Confidentiality of Alcohol and Drug Abuse Patient Records regulations: The Federal rules restrict any use of the information to criminally investigate or prosecute any alcohol or drug abuse patient.[facility] CenterIn the event this information is protected by the Federal Confidentiality of Alcohol and Drug Abuse Patient Records regulations: The Federal rules restrict any use of the information to criminally investigate or prosecute any alcohol or drug abuse patient.[facility] CenterIn the event this information is protected by the Federal Confidentiality of Alcohol and Drug Abuse Patient Records regulations: The Federal rules restrict any use of the information to criminally investigate or prosecute any alcohol or drug abuse patient.[facility] CenterIn the event this information is protected by the Federal Confidentiality of Alcohol and Drug Abuse Patient Records regulations: The Federal rules restrict any use of the information to criminally investigate or prosecute any alcohol or drug abuse patient.[facility] CenterIn the event this information is protected by the Federal Confidentiality of Alcohol and Drug Abuse Patient Records regulations: The Federal rules restrict any use of the information to criminally investigate or prosecute any alcohol or drug abuse patient.[facility] CenterIn the event this information is protected by the Federal Confidentiality of Alcohol and Drug Abuse Patient Records regulations: The Federal rules restrict any use of the information to criminally investigate or prosecute any alcohol or drug abuse patient.[facility] CenterIn the event this information is protected by the Federal Confidentiality of Alcohol and Drug Abuse Patient Records regulations: The Federal rules restrict any use of the information to criminally investigate or prosecute any alcohol or drug abuse patient.[facility] CenterIn the event this information is protected by the Federal Confidentiality of Alcohol and Drug Abuse Patient Records regulations: The Federal rules restrict any use of the information to criminally investigate or prosecute any alcohol or drug abuse patient.[facility] CenterIn the event this information is protected by the Federal Confidentiality of Alcohol and Drug Abuse Patient Records regulations: The Federal rules restrict any use of the information to criminally investigate or prosecute any alcohol or drug abuse patient.[facility] CenterIn the event this information is protected by the Federal Confidentiality of Alcohol and Drug Abuse Patient Records regulations: The Federal rules restrict any use of the information to criminally investigate or prosecute any alcohol or drug abuse patient.[facility] CenterIn the event this information is protected by the Federal Confidentiality of Alcohol and Drug Abuse Patient Records regulations: The Federal rules restrict any use of the information to criminally investigate or prosecute any alcohol or drug abuse patient.[facility] CenterIn the event this information is protected by the Federal Confidentiality of Alcohol and Drug Abuse Patient Records regulations: The Federal rules restrict any use of the information to criminally investigate or prosecute any alcohol or drug abuse patient.[facility] CenterIn the event this information is protected by the Federal Confidentiality of Alcohol and Drug Abuse Patient Records regulations: The Federal rules restrict any use of the information to criminally investigate or prosecute any alcohol or drug abuse patient.[facility] FOR RECORDS PERTAINING TO PATIENTS WHO ARE [...] BE BASED ON THE PRIMARY CLINICAL RECORDS. [facility]. provides no warranty or guarantee of the accuracy or completeness of information in this document.
--- OUTSIDE RECORDS SUMMARY | 2025-03-16 07:25 | XMS_ITS | Clinical Summary ---
Author Organization [facility] Address [address] [place] [address] Care Team Providers Care Director Insurance Name Role Phone Andrea Wu DO Primary Care Provider Allergies Active AllergyReactionsCriticalityNoted LldyTsbmhucdRmfaymxgpauZymrnzy09/30/2023 Iodinated Contrast MediaOther,Shortness of breath,MkqhlixOnkq46/22/2008Iodine Smmakqz5801/14/2023enicillin YKnmvAmh99/30/2023Sulfa AntibioticsUnknown, Secbqmpkyy37/22/9701YwmvktIluuiuj20/07/2025Wasp Venom10/21/2018 Other Reaction(s): Anaphylaxis Medications MedicationSigDispense QuantityRefillsLast [...] apply pea sized amount to urethra 2x/wk[facility], [facility], 02/20/23 8:48:00 EST, Height/Length Dosing, 68.5, kg, 02/20/23 8:48:00 EST, Weight Mrvccl1302/20/2023ctive famotidine (Pepcid) 20 MG tablet Take by [...] 1 spray before bedtime. 48 mL ctive clobetasol (Temovate) 0.05 % ointment Indications:Lichen sclerosus et atrophicusAPPLY 1 APPLICATION TOPICALLY IN THE MORNING AND 1 APPLICATION BEFORE BEDTIME FOR 14 DAYS 30 g 5Active clobetasol (Temovate) 0.05 % ointment Indications:Lichen sclerosus et atrophicusApply 1 application topically in the morning and 1 application before bedtime. Do all this for 14 days. 30 g Discontinued Active Problems ProblemNoted DateDiagnosed DateAbdominal fwfbdvca91/09/2024spiration into vdzbuf9807/25/2023Epigastric pain07/25/20236498Ubvaoagtvend27/09/2024Lichen sclerosus et yvwbefless69/09/2024Mild persistent ymuikj9907/25/2023Mixed incontinence 4Chronic uhtrnxxooceu72/16/2024hronic cough07/02/2023llergic rhinitis due to mzeehd9206/27/20237592Iqrtrcaqm88/11/2341Pricph11/11/2024symptomatic microscopic tglzeqhqh44/11/2024utoimmune dvjwhjitvtutyr48/11/2024Graves' hgrsxwy4506/27/2023hronic xbhlbhihro21/11/2024hronic maxillary sinusitis 06/27/2023hronic tension zrrykyun14/11/2024Equinus contracture of right ankle 06/27/2023Fibrocystic breast vnafmga4706/27/2023Gastroesophageal reflux disease 06/27/2023History of colonic gknokq5106/27/20234431Jdulefssbvlnri27/11/2024LPRD (laryngopharyngeal reflux disease)06/27/2023Migraine okcylyuh47/11/2024 Nlroejcodl36/11/2024eripheral ozrxnifzchww00/11/2024haryngoesophageal gxfmhrbik70/11/2024Urethral pngepaxo54/11/0618Kncctrc91/11/2024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[facility])06/27/2023Spondylosis of lumbar spine06/27/2023ulmonary function studies oxjsbeso14/11/2024ostinflammatory pulmonary gycmbumw06/11/2024 Keratoconjunctivitis sicca of both eyes not specified as Sjogren'01/14/2023 Blepharitis of upper and lower eyelids of both eyes01/14/2023ilateral posterior capsular gofjxvcrlekqg55/30/9457Ctbapozgnbau11/12/2023chilles tendinitis of right lower gzucoagjr82/25/2017Benign essential btdjuaxlhqse86/01/2008Ulcerative cgmxdgq9803/18/2007 Resolved Problems ProblemNoted DateDiagnosed DateResolved DateHistory of gastric ulcer06/27/2023 06/27/2023Lung field gwwerenf61ecurrent UTI06/27/2023 06/27/2023Episodic tension-type headache, not rdzfjbbgozb69 Encounters DateTypeDepartmentCare SgveSnuuyyopyih89/10/2025 10:50 AM ESTOffice Visit [facility] [address] [place] [address] Janae Crane MD Seborrheic keratosis, inflamed (Primary Dx); Milia02/24/2025amboo flowsheet [facility] [address] [place] [address] Janae Crane MD 02/24/20254533Pnkipy66/07/2025Refill [facility] [address] [place] [address] Madison Burns, Lichen sclerosus et /13/2025 9:20 AM EDTOffice Visit [facility] [address] [place] [address] Ezio Vasquez MD Peripheral eosinophilia (Primary Dx); Chronic maxillary sinusitis; Cough variant asthma ([facility])12/28/2024amboo flowsheet [facility] [place] [facility] [address] [place] [address] Ezio Vasquze MD 12/28/20244127Szliok01/12/2025Travelfrom Last 3 Months Family History Medical HistoryRelationNameCommentsDiabetesMotherHypertensionMotherLung cancer MotherPancreatic cancerMotherBreast cancerSister 1CancerSister 2Heart disease Sister 2MelanomaNeg IlXudkqwuiTkbvMdnvsiOzcwpqoxXcxpjnm9HebjgjDlvkyg 1Sister 2 SonAlive2 Social History Tobacco UseTypesPacks/DayYears UsedDateSmoking Tobacco: NeverSmokeless Tobacco: Never Tobacco Cessation:Counseling Given: Not Answered Alcohol UseStandard Drinks/WeekCommentsNever0 (1 standard drink = 0.6 oz pure alcohol)Caffeine : sodaCommentsUnknownSex and Gender InformationValue Date RecordedSex Assigned at EffmeWgyvoi56/13/2023 7:05 PM EDTLegal SexFemale 05/30/2022 6:52 PM EDTGender ZdgxaaprUahmky99/13/2023 7:05 PM EDTSexual OrientationNot on file Last Filed Vital Signs Vital SignReadingTime TakenCommentsBlood Zfohqjbo649/76004/16/2024 10:59 AM EST Pulse--Temperature--Respiratory Rate--Oxygen Saturation--Inhaled Oxygen Concentration--Qainbt89.6 kg (171 lb)12/28/2024 9:14 AM REAVfixnr810.5 cm (5' 2 )04/30/2024 9:01 AM ESTBody Mass Index31.28004/30/2024 9:01 AM EST Plan of Treatment DateTypeDepartmentCare Team (Latest Contact Info)Gliydakigth97/21/2026 1:30 PM ESTOffice Visit [facility] [address] [place] [address] Uriah Kilpatrick DO [address] [place] [address] 04/29/2025 9:20 AM ESTOffice Visit [facility] [address] [place] [address] Ezio Vasquez MD [address] [facility] [address] [place] [address] 05/11/2025 9:45 AM ESTOffice Visit [facility] [address] [place] [address] Madison Burns DO [address] [place] [address] Health MaintenanceDue DateLast DoneCommentsCT Xrndgxfmcicr13/11/1953FIT-DNA 1952FIT1950FOBT1950 8510Rouhgycpvwgnu82/11/9927Vbkmjvwnk46/18/2025 02/03/2024, 02/05/2023, 02/02/2022, Additional history existsColonoscopy , 09/07/2019, 01/16/2015, Additional history exists Colorectal Cancer Fseeoxjvy00/06/2034Pneumococcal Vaccine: 65+ YearsCompleted 01/05/2019, 01/10/2017, 01/04/2016Influenza AebifslMxwgslufq61/07/2025, 01/13/2024, 12/31/2022, Additional history exists Procedures Procedure NamePriorityDate/TimeAssociated DiagnosisCommentsCRYOTHERAPY SKIN BULZSEBrtjczi45/10/2025 10:46 AM EST Seborrheic keratosis, inflamed MAMMOGRAM, BILATERAL, SCREEN:*Xqwvarx2602/03/2024 12:39 PM ESTfrom Last 3 Months or Most Recently Relevant to Health Maintenance Results * Cryotherapy, skin lesion (02/24/2025 10:46 AM EST) Narrative Authorizing ProviderResult TypeResult StatusEmily A Petitti MDDERM PROCEDURE ORDERABLESFinal Result * MAMMOGRAM, BILATERAL, SCREEN:* (02/03/2024 12:39 PM EST)Anatomical Region LateralityModalityRadiographic Imaging Narrative Authorizing ProviderResult TypeResult StatusKatvivek Burns DOIMG XR PROCEDURESFinal Result from Last 3 Months or Most Recently Relevant to Health Maintenance Insurance * Guarantor: Onesimo Chester TypeRelation to PatientDate of PhoneBilling AddressPersonal/ZdaixbGuho18/11/1951 [facility] [address] Care Teams Team MemberRelationshipSpecialtyStart DateEnd Date Andrea Wu DO [address] [place] [address] PCP - GeneralInternal Medicine08/27/22
--- OUTSIDE RECORDS SUMMARY | 2025-03-16 07:25 | XMS_ITS | Clinical Summary ---
Author Organization [facility] Address [address] 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 Phone Unavailable Primary Care Provider Unavailabl e Allergies Active AllergyReactionsCriticalityNoted FsnkQywlezpxVmekoihgzmuYhrenux19/29/2024 Bee Venom Protein (Honey Bee)YsefbdklreeKkis54/06/2019Iodinated Contrast Media Anaphylaxis,Hives,Other,Shortness of breath,OqmvgorNmpf41/22/2008Iodine Anaphylaxis,FqevzziQoie18/30/5869RmeeotpljqFidoGbd37/29/2024Sulfa (Sulfonamide Antibiotics)Rash,UhknrsxWxu92/22/2008Sulfacetamide Set-Ilbndt-VejbRiveqoi 09/14/2023Wasp EkzrgYokeyjtskpgDhgn83/06/2019 Other Reaction(s): Anaphylaxis Medications MedicationSigDispense QuantityRefillsLast FilledStart [...] capsule (50 mcg) by mouth once daily.05/18/2022ctive nszglwruec-kjbgrqgneqspx-kxfs (Fioricet) 50-300-40 mg capsule Take by mouth.Active Breo Ellipta 200-25 mcg/dose inhaler 01/25/2023ctive EpiPen 2-Giovani 0.3 mg/0.3 mL injection syringe as directed InjectionActive estradiol (Estrace) 0.01 % (0.1 mg/gram) vaginal cream See Instructions, 42.5 gm, Refill(s) 0, apply pea sized amount to urethra 2x/wk, [facility], 158, cm, 02/20/23 8:48:00 EST, Height/Length Dosing, 68.5, kg, 02/20/23 8:48:00 EST, Weight Hidblq3602/20/2023ctive codeine-guaifenesin (Robitussin-AC) 10-100 mg/5 mL syrup Every [...] 0.6 oz pure alcohol)PHQ-2AnswerDate RecordedPatient Health Questionnaire-2 [id number] CommentsUnknownSex and Gender InformationValueDate RecordedSex Assigned at BirthNot on fileLegal WtfLsexhh80/26/2022 5:55 PM ESTGender IdentityNot on fileSexual OrientationNot on file Last Filed Vital Signs Vital SignReadingTime TakenCommentsBlood Pressure--Pulse--Voxadxwynrv38.2 ??C (97.2 ??F)10/08/2023 9:30 AM EDTRespiratory Rate--Oxygen Saturation--Inhaled Oxygen Concentration--Ikipyx97 kg (165 lb 4.8 oz)10/08/2023 9:30 AM EDTHeight 157.5 cm (5' 2 )10/08/2023 9:30 AM EDTBody Mass Index30.23010/08/2023 9:30 AM EDT Plan of Treatment Health MaintenanceDue DateLast DoneCommentsCT Vofwwndwfhgx66/11/1953FIT-DNA (Cologuard)1952FIT1952Lipid Panel1952Medicare Annual Wellness Visit (AWV)1950 6414Ltfslhtdlobri28/11/1953TB Test1952TSH Level1952 Vitamin B-120 1952Vitamin N95-YG02 1952Hepatitis B Surface Antibody 1953MMR Vaccines (1 of 1 - Standard series)1953Hepatitis C Screening 1970DTaP/Tdap/Td Vaccines (1 - Tdap)1974Zoster Vaccines (1 of 2) 2002Bone Density Scan01/12//9953Qnosohbvi93, 02/02/2022, 01/25/2021, Additional history existsCOVID-19 Vaccine ( - season), 12/22/2021, 07/04/2021, Additional history exists Influenza Vaccine (#1), 12/18/2021, 11/23/2020, Additional history wzyeksDpnldeyeztp28/06/203403/08/2023, 09/07/2019, 01/16/2015, Additional history existsColorectal Cancer Anzjtrrxj88/06/2034Pneumococcal DavacyjPiqswmolj94/21/2019, 01/10/2017, 01/04/2016RSV High Risk: (Elderly (60+) or Population)Uhqchblup36/16/2023HIB VaccinesAged OutNo longer eligible based on patient's age to complete this topicHPV VaccinesAged OutNo longer eligible based on patient's age to complete this topicHepatitis A VaccinesAged OutNo longer eligible based on patient's age to complete this topicHepatitis B VaccinesAged OutNo longer eligible based on patient's age to complete this topic IPV VaccinesAged OutNo longer eligible based on patient's age to complete this topicMeningococcal VaccineAged OutNo longer eligible based on patient's age to complete this topicRotavirus VaccinesAged OutNo longer eligible based on patient's age to complete this topic Insurance * Guarantor: Onesimo Chester TypeRelation to PatientDate of PhoneBilling AddressPersonal/FiliroUfyx22/11/1951 ([address] [place] [address] [address] [place] [address]
--- OUTSIDE RECORDS SUMMARY | 2025-03-16 07:25 | XMS_ITS | Clinical Summary ---
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 Phone Unavailable Primary Care Provider Unavailabl e Social History Tobacco UseTypesPacks/DayYears UsedDateSmoking Tobacco: Never AssessedUT Safety & EnvironmentAnswerDate RecordedFear of Current or Ex-PartnerNot on file 08/26/2023Emotionally AbusedNot on file08/26/2023hysically AbusedNot on file 08/26/2023Sexually AbusedNot on file08/26/2023hysically or Sexually AbusedNot on file08/26/2023CommentsUnknownSex and Gender InformationValueDate RecordedSex Assigned at BirthNot on fileLegal WusPvxkoh68/10/2024 5:33 PM EDT Gender IdentityNot on fileSexual OrientationNot on file Plan of Treatment Not on file
[2025-03-16 07:49] LABS: Hematocrit 38.4 % (36.0-48.0); Hemoglobin 12.8 g/dL (12.0-16.0); Immature Granulocytes Abs Auto 0.05 10^3/uL (0.00-0.03); Immature Granulocytes Pct Auto 0.5 % (0.0-0.5); Lymphocytes Absolute Auto 1.5 10^3/uL (1.2-3.8); Mean Corpuscular HGB Conc 33.3 g/dL (29.9-35.2); Mean Corpuscular Hemoglobin 31.4 pg (26.7-34.0); Mean Corpuscular Volume 94.3 fL (81.0-99.0); Platelet Count 427 10^3/uL (150-450); Red Blood Count 4.07 10^6/uL (4.20-5.40); White Blood Count 9.1 10^3/uL (4.0-11.0)
[2025-03-16 08:39] LABS: Alanine Aminotransferase 24 U/L (14-59); Albumin Globulin Ratio 1.0; Albumin Level 3.5 g/dL (3.4-5.0); Alkaline Phosphatase 106 U/L (46-116); Anion Gap 12.1; Aspartate Amino Transferase 16 U/L (15-37); Blood Urea Nitrogen 18.0 mg/dL (7.0-18.0); Calcium 9.3 mg/dL (8.5-10.1); Carbon Dioxide 29.4 mmol/L (21.0-32.0); Chloride 105 mmol/L (98-107); Cholesterol 162 mg/dL (<=200); Estimated GFR (African America >60 (>=60 mL/min/1.73m^2); Estimated GFR (Non-African Ame 51 (>=60 mL/min/1.73m^2); Globulin 3.6 g/dL; Glucose 99 mg/dL (74-106); HDL Cholesterol 49 mg/dL (40-60); Potassium 3.5 mmol/L (3.5-5.1); Sodium 143 mmol/L (136-145); Thyroid Stimulating Hormone 2.887 uIU/mL (0.358-3.740); Total Protein 7.1 g/dL (6.4-8.2); Triglycerides 114 mg/dL (<=150); VLDL CHOLESTEROL 22.8 mg/dL
== END 2025-03-16 07:22 | disposition home or self-care (01) ==
LOC: LAB 07:21
PROVIDERS: PCP Internal Medicine; Visit Provider Internal Medicine
DX: M81.0 Age-related osteoporosis without current pathological fracture (principal); I10 Essential (primary) hypertension; E89.0 Postprocedural hypothyroidism; E78.5 Hyperlipidemia, unspecified
CPT/HCPCS: 36415; 80053; 80061; 84443; 85025